=== PATIENT | male | born 1940 | race Caucasian/White ===

== ENCOUNTER → 2019-01-20 11:22 | Outpatient (CLI) | payer MEDICARE, OTHER, SELFPAY ==
[2019-01-20 14:10] LABS: Absolute Lymphocyte Count 1.61 X10^3/ul (0.83-4.51); Absolute Neutrophil Count 2.1 X10^3/uL (2.0-7.7); Eosinophil# 0.09 X10^3/uL; Hematocrit 32.2 % (40-54); Hemoglobin 9.7 g/dl (13.0-16.5); Lymphocyte # 1.61 X10^3/ul (4.0); Lymphocyte % 35.9 % (19-41); Mean Corp Hgb Conc 30.1 g/gl (32-36); Mean Corpuscular Hgb 27.5 pg (27.0-32.0); Mean Corpuscular Volume 91.2 fL (80-94); Mean Platelet Vol. 10.7 fl (6.2-12.0); Monocyte# 0.67 X10^3/uL; Neutrophil % 46.9 % (47-70); POSITIVE COUNT NO; POSITIVE DIFFERENTIAL NO; POSITIVE MORPHOLOGY NO; Platelet Count 211 K/mm3 (150-450); RBC Distribution Width CV 14.1 % (11.6-14.6); RBC Distribution Width SD 45.9 fl (35.1-43.9); Red Blood Count 3.53 M/mm3 (4.6-6.2); White Blood Count 4.5 K/mm3 (4.4-11.0)
[2019-01-20 14:25] LABS: Vitamin B12 441 pg/mL (211-911)
[2019-01-20 14:29] LABS: ALB/GLOB Ratio 0.9 RATIO (0.9-2.4); AST(SGOT) 14 U/L (15-37); Alanine Aminotransfer ALT/SGPT 14 U/L (16-61); Albumin, Serum 3.4 g/dL (3.2-5.0); Alkaline Phosphatase 78 U/L (45-117); Anion Gap 10 (5-15); BUN 17 mg/dL (7-18); BUN/Creat Ratio 13.6 RATIO (10-20); Calcium,Total 8.3 mg/dL (8.5-10.1); Chloride 105 mmol/L (98-107); Cholesterol 104 mg/dL (200); Creatinine, Serum 1.25 mg/dL (0.70-1.30); EST Glomerular Filtration Rate 59 mL/min (>60); Est Glom Filt Rate - Afr Amer 71 mL/min (>60); Globulin 3.7 g/dL (2.2-4.2); Glucose 96 mg/dL (74-106); High Density Lipoprotein 35 mg/dL; Potassium 4.1 mmol/L (3.5-5.1); Protein, Total 7.1 g/dL (6.4-8.2); Sodium Level 143 mmol/L (136-145); T4 Free Direct 0.85 ng/dL (0.76-1.46); Thyroid Stim Hormone (TSH) 1.56 uIU/mL (0.358-3.74); Triglycerides 173 mg/dL; Very Low Density Lipoprotein 35 mg/dL (5-40)
[2019-01-20 14:40] LABS: Amphetamine Urine VISTA NEGATIVE (<1000 ng/mL); Barbiturate Urine VISTA NEGATIVE (< 200 ng/mL); Benzodiazepine Urine VISTA NEGATIVE (< 200 ng/mL); Cocaine Urine VISTA NEGATIVE (< 300 ng/mL); Ecstacy Urine VISTA NEGATIVE (< 500 ng/mL); Methadone Urine VISTA NEGATIVE (< 300 ng/mL); PCP Urine VISTA NEGATIVE (< 25 ng/mL); THC Urine VISTA NEGATIVE (< 50 ng/mL); Vista UDS pH Range 5
[2019-01-21 09:45] LABS: Ferritin 9 ng/mL (26-388); Iron 26 ug/dL (65-175); Iron Binding Capacity,Total 370 ug/dL (250-450)
== END ==
PROVIDERS: Family Provider Family Medicine; PCP Family Medicine; Referring Provider Family Medicine; Visit Provider Family Medicine
DX: D64.9 Anemia, unspecified (principal); I10 Essential (primary) hypertension; E78.5 Hyperlipidemia, unspecified; E04.1 Nontoxic single thyroid nodule; R53.83 Other fatigue; Z51.81 Encounter for therapeutic drug level monitoring
CPT/HCPCS: 36415; 80053; 80061; 80307; 82306; 82607; 82728; 82746; 83540; 83550; 84439; 84443; 85025

== ENCOUNTER → 2019-01-25 11:40 | Outpatient (CLI) | payer MEDICARE, OTHER, SELFPAY ==
--- NOTE | 2019-01-25 11:46 | US_ITS ---
STUDY: THYROID ULTRASOUND REASON FOR EXAM: Male, 78 years old. Thyroid nodules TECHNIQUE: Ultrasound evaluation of the thyroid was performed with real-time and static zamora-scale imaging. COMPARISON: None. FINDINGS: RIGHT LOBE: The right lobe of the thyroid gland measures 5.1 x 1.8 x 1.5 cm. There is a homogeneous echotexture. There are no demonstrated solid, cystic or complex lesions. LEFT LOBE: The left lobe of the thyroid gland measures 3.9 x 1.7 x 1.1 cm. There is a homogeneous echotexture. There are no demonstrated solid, cystic or complex lesions. ISTHMUS: The isthmus measures 3 mm . The regional lymph nodes are normal. US/Thyroid IMPRESSION: Normal ultrasound examination of the thyroid. Electronically Signed: Maciej Knight MD at 23:21 EST , Service support ,
== END ==
PROVIDERS: Family Provider Family Medicine; PCP Family Medicine; Referring Provider Family Medicine; Visit Provider Family Medicine
DX: E04.1 Nontoxic single thyroid nodule (principal)
CPT/HCPCS: 76536

== ENCOUNTER → 2019-02-01 11:53 | Outpatient (CLI) | payer MEDICARE, OTHER, SELFPAY ==
[2019-02-01 15:49] LABS: Amphetamine Urine VISTA NEGATIVE (<1000 ng/mL); Barbiturate Urine VISTA NEGATIVE (< 200 ng/mL); Benzodiazepine Urine VISTA NEGATIVE (< 200 ng/mL); Cocaine Urine VISTA NEGATIVE (< 300 ng/mL); Ecstacy Urine VISTA NEGATIVE (< 500 ng/mL); Methadone Urine VISTA NEGATIVE (< 300 ng/mL); PCP Urine VISTA NEGATIVE (< 25 ng/mL); THC Urine VISTA NEGATIVE (< 50 ng/mL); Vista UDS pH Range 7
[2019-02-01 16:09] LABS: Anion Gap 8 (5-15); BUN 16 mg/dL (7-18); BUN/Creat Ratio 14.3 RATIO (10-20); Calcium,Total 8.6 mg/dL (8.5-10.1); Chloride 104 mmol/L (98-107); Creatinine, Serum 1.12 mg/dL (0.70-1.30); EST Glomerular Filtration Rate 67 mL/min (>60); Est Glom Filt Rate - Afr Amer 81 mL/min (>60); Ferritin 14 ng/mL (26-388); Glucose 98 mg/dL (74-106); Iron 25 ug/dL (65-175); Iron Binding Capacity,Total 365 ug/dL (250-450); PERCENT IRON SATURATION 6.8 % (15.0-55.0); Potassium 4.2 mmol/L (3.5-5.1); Sodium Level 139 mmol/L (136-145)
== END ==
PROVIDERS: Family Provider Family Medicine; PCP Family Medicine; Referring Provider Family Medicine; Visit Provider Family Medicine
DX: D64.9 Anemia, unspecified (principal); R94.4 Abnormal results of kidney function studies
CPT/HCPCS: 36415; 80048; 80307; 82728; 82746; 83540; 83550

== ENCOUNTER → 2019-02-11 14:27 | Outpatient (CLI) | payer MEDICARE, OTHER, SELFPAY ==
[2019-02-01 14:15] VITALS: BMI 26.3
[2019-02-11 15:42] LABS: Absolute Lymphocyte Count 1.31 X10^3/ul (0.83-4.51); Absolute Neutrophil Count 1.2 X10^3/uL (2.0-7.7); Basophil# 0.01 X10^3/uL; Basophil% 0.3 % (0-1); Eosinophils% 5.4 % (0-5); Hematocrit 31.1 % (40-54); Hemoglobin 9.7 g/dl (13.0-16.5); Lymphocyte # 1.31 X10^3/ul (4.0); Lymphocyte % 35.4 % (19-41); Mean Corp Hgb Conc 31.2 g/gl (32-36); Mean Corpuscular Hgb 27.4 pg (27.0-32.0); Mean Corpuscular Volume 87.9 fL (80-94); Mean Platelet Vol. 9.9 fl (6.2-12.0); Monocyte# 0.97 X10^3/uL; Monocyte% 26.2 % (0-10); Neutrophil % 32.4 % (47-70); Platelet Count 210 K/mm3 (150-450); RBC Distribution Width CV 14.6 % (11.6-14.6); RBC Distribution Width SD 47.3 fl (35.1-43.9); Red Blood Count 3.54 M/mm3 (4.6-6.2); White Blood Count 3.7 K/mm3 (4.4-11.0)
[2019-02-11 15:50] LABS: POSITIVE COUNT NO; POSITIVE DIFFERENTIAL NO; POSITIVE MORPHOLOGY NO
[2019-02-11 15:57] LABS: Anion Gap 11 (5-15); BUN 15 mg/dL (7-18); BUN/Creat Ratio 12.8 RATIO (10-20); Calcium,Total 8.6 mg/dL (8.5-10.1); Chloride 103 mmol/L (98-107); Creatinine, Serum 1.17 mg/dL (0.70-1.30); EST Glomerular Filtration Rate 64 mL/min (>60); Est Glom Filt Rate - Afr Amer 77 mL/min (>60); Glucose 109 mg/dL (74-106); Potassium 3.8 mmol/L (3.5-5.1); Sodium Level 142 mmol/L (136-145)
== END ==
PROVIDERS: Family Provider Family Medicine; PCP Family Medicine; Referring Provider Family Medicine; Visit Provider Family Medicine
DX: I10 Essential (primary) hypertension (principal); D64.9 Anemia, unspecified
CPT/HCPCS: 36415; 80048; 85025

== ENCOUNTER 2019-02-22 08:40 | Day surgery (SDC) | payer MEDICARE, OTHER, SELFPAY ==
[2019-02-14 15:18] VITALS: BMI 26.3
--- NOTE | 2019-02-14 16:18 | HP_ITS ---
ntake Vital Signs 02/14/19 Body Mass Index (BMI) 26.3 02/14/19 Height 6 ft 02/14/19 Weight: 188 lb 02/14/19 Body Mass Index (BMI) 25.4 02/14/19 Blood Pressure 134/60 H 02/14/19 Blood Pressure Location Lt brachial 02/14/19 Blood Pressure Position Sitting 02/14/19 Respiratory Rate 18 02/14/19 Pulse Rate 52 L Intake Visit Reasons: Anemia Chief Complaint: Routine f/u Survey Engineer Required: No Is patient in pain?: No Allergies No Known Allergies Allergy (Verified 02/14/19 15:17) Medications Lactobacillus acidophilus capsule 2,000 mmu cells PO BID 01/20/19 [History Confirmed 02/14/19] acetaminophen 500 mg tablet 1,000 mg PO BID PRN tab 01/20/19 [History Confirmed 02/14/19] fluticasone 50 mcg/actuation nasal spray,suspension 1 spray INTRANASAL DAILY PRN 01/20/19 [History Confirmed 02/14/19] loperamide 2 mg capsule 2 mg PO DAILY cap 01/20/19 [History Confirmed 02/14/19] amlodipine 5 mg tablet 5 mg PO DAILY #90 tab 02/01/19 [Rx Confirmed 02/14/19] carvedilol 25 mg tablet 25 mg PO BID #180 tab 02/01/19 [Rx Confirmed 02/14/19] cholecalciferol (vitamin D3) 5,000 unit capsule 5,000 unit PO DAILY 02/01/19 [History Confirmed 02/14/19] ferrous sulfate 325 mg (65 mg iron) tablet 325 mg PO DAILY tab 02/01/19 [History Confirmed 02/14/19] rosuvastatin 5 mg tablet 5 mg PO DAILY #90 tab 02/01/19 [Rx Confirmed 02/14/19] [facility] Medical History Iron deficiency anemia (Acute) Aortic stenosis (Chronic) Bowel obstruction (Acute) Mitral valve annular calcification (Chronic) Atrial fibrillation with rapid ventricular response (Acute) Acute metabolic encephalopathy (Acute) Acute kidney injury (Acute) Nonrheumatic aortic (valve) stenosis (Chronic) Prolonged QT interval (Acute) Left bundle branch block (Chronic) Anemia (Acute) Hyperlipidemia (Chronic) Essential (primary) hypertension (Chronic) Declining functional status (Acute) Cognitive deficits (Chronic) Vitamin D deficiency (Chronic) Surgical History Umbilical hernia, incarcerated (Chronic 12/04/18) S/P partial colectomy (Acute) Family History Father Cancer Sister Cancer Social History Smoking Status: Former smoker quit date: 11/23/1954 pack-years: 5 ROS General General: Yes fatigue; no weight change, appetite, colon cancer, breast cancer or weakness HEENT HEENT: Yes eye injury and eye surgery; no difficulty swallowing, swollen glands or hoarseness Endo Endocrine: No thyroid disease, diabetes mellitus, thyroid cancer, Hair loss, heat intolerance or cold intolerance Skin Skin: No rash or changing moles Breast Breast: No left breast lump, right breast lump, nipple discharge, breast pain, abnormal mammogram, abnormal US or breast enlargement Musc Musculoskeletal: No back problems, arthritis, rheumatoid arthritis, gout or joint pain Cardio Cardiovascular: Yes heart disease, atrial fibrillation and high blood pressure; no murmur, pacemaker, heart attack, heart stent, palpitations, shortness of breat with exertion or chest pain Psych Psychiatric: No depression, anxiety or hearing voices Resp Respiratory: Yes shortness of breath, No sleep apnea, No cough, No COPD, No asthma, No emphysema, No wheezing Gastro Gastrointestinal: No abdominal pain, Yes nausea or vomiting, Yes diarrhea, Yes constipation, No blood in stool, No acid reflux, No hemorrhoids, No ulcers, No gallbladder problem, No black,tarry stools Stanley Hematologic: No blood thinners, No blood disorders, No bleeding, Yes anemia, No blood clots Neuro Neurologic: No system reviewed and no additional complaints, except as docu, No as per HPI, No abnormal walking, No abnormal hearing, No abnormal movements, No abnormal speech, No behavioral changes, No burning sensations, No confusion, No seizure-like activity, No unsteadiness, No dizziness, No localized weakness, No frequent falls, No headache(s), No lack of coordination, No loss of vision, No memory loss, No numbness, No other visual disturbances, No radiating pain, No restless legs, No sensory deficit, No fainting, No tingling, No tremor(s), No weakness, No other Exam Const General: cooperative, frail appearing Nutritional Appearance: average body habitus Orientation: alert [facility] Head: normal to inspection Chest Breast Palpation: No nipple discharge Resp Effort & Inspection: normal respiratory effort Auscultation: clear to auscultation bilaterally Cardio Rhythm: abnormal rhythm Heart Sounds: no murmurs GI Palpation: soft, no hepatosplenomegaly Musc Cervical Spine: other (Kyphosis) Neuro Other: Patient's responses are mostly appropriate. He does rely upon his sister from some history Extrem General: no calf tenderness bilaterally Psych Affect: normal affect Assessment & Plan Problems 1. Iron deficiency anemia, unspecified iron deficiency anemia type D50.9 Plan 86-year-old gentleman who just underwent emergency surgery for incarcerated umbilical hernia with compromised bowel requiring bowel resection. He did have some postoperative encephalopathy but otherwise is making steady progress. He has need for cardiac catheterization and further workup regarding his aortic stenosis however he is referred by Dr. Mack Tillman collection analyst to undergo his upper and lower endoscopy first looking for potential source of blood loss. The patient certainly could have stress gastritis or an ulceration or because he has a personal history of colon polyps there is also to could be a potential source of loss. The patient however clearly is at increased interventional risk. With his sister present I described the technique, benefit, risks and alternatives of a esophagogastroduodenoscopy with possible biopsy and colonoscopy with possible biopsy or polypectomy is indicated. No guarantees of success have been offered. I anticipate preoperative IV antibiotic. I anticipate monitored anesthesia care. The patient has been instructed to avoid hydration and continue with adequate fluid supplementation. I appreciate the opportunity of assisting with his surgical care Hunter Boone M.D., F.A.C.S. CC: Dr. Mal Main and Dr. Mack Tillman Coding Level of Care Code Detailed, Low Diagnoses Iron deficiency anemia, unspecified iron deficiency anemia type D50.9 ??Iron deficiency anemia type: unspecified iron deficiency
--- NOTE | 2019-02-22 | IMM_PTH ---
PATIENT: ELIAS JAQUEZ LOC: EN U#:[id number] AGE/SX: 78/M ROOM: RE02/22/[address]: Dr. Hunter Boone MD : 1940 BED: DIS: 02/22/2019 SPEC #: [id number] RECD: 02/23/19 11:20 STATUS: KHURRAM REYuki #: [id number] CRYSTAL: 02/22/19 00:[address]: Hunter Boone DEPT: IMMUNOHISTOCHEMISTRY RECD BY: Erika Macias ENTERED: 02/23/19 11:20 SP TYPE: IMMUNO OTHR DR: Dr. Mal Main MD Tissues: A - Gastric mucous membrane Procedures: H Pylori (initial) PHYSICIAN & INSTITUTION [place] [address] SPECIMEN INFORMATION: Tissue Source: A - Cardia biopsy Clinical Info: Anemia, history of polyp Specimen Number: [id number] CPT code: 22816 METHODOLOGY: Deparaffinized sections of prefer/formalin-fixed tissue or PAP/DQ stained slides are incubated with monoclonal/polyclonal antibodies/oligonucleotide probes. Localization is made via biotin free immunoperoxidase method. Appropriate controls are performed and reacted as expected. Results on target cell population are indicated in the following table: RESULTS: ANTIBODY / CLONE RESULT Block A H Pylori (polyclonal) negative These tests were developed and their performance characteristics determined by [facility]. They may not have been cleared or approved by the U.S. Food and Drug Administration. The FDA has determined that such clearance or approval is not necessary. INTERPRETATION: A. Cardia biopsy: Negative for Helicobacter pylori organisms. SJ:daquan 02/24/19
[2019-02-22 09:02] VITALS: BP 130/67; PULSE 52; RESP 16; TEMP 36.9; O2SAT 100; BMI 25.3
--- NOTE | 2019-02-22 09:45 | COLBX_PTH ---
PATIENT: ELIAS JAQUEZ LOC: EN U#:[id number] AGE/SX: 78/M ROOM: RE02/22/[address]: Dr. Hunter Boone MD : 1940 BED: DIS: 02/22/2019 SPEC #: [id number] RECD: 02/22/19 11:04 STATUS: KHURRAM MARIAMA #: [id number] CRYSTAL: 02/22/19 09:[address]: Hunter Boone DEPT: SURGICAL PATHOLOGY RECD BY: Nish Cruz ENTERED: 02/22/19 11:37 SP TYPE: COLON BX OTHR DR: Dr. Mal Main MD Tissues: A - Gastric mucous membrane B - Esophageal mucous membrane C - Transverse colon Procedures: Special Stain Group II Surgery Specimen Level IV Alcian Blue/PAS (control) HEADER OPERATION: Colonoscopy, EGD ([facility] [place]) PRE-OP DIAGNOSIS: Anemia, history of polyp TISSUE SUBMITTED: A - Cardia biopsy, B - Distal esophageal biopsies, C - Mid transverse polyp biopsies MICROSCOPIC DIAGNOSIS A. Cardia, biopsy: Fragments of gastric mucosa with acute and chronic inflammation, congestion and hemorrhage. See comment. B. Distal esophageal biopsy: Fragments of gastroesophageal mucosa with intestinal metaplasia (goblet cell metaplasia), consistent with Mackey's esophagus. Mild chronic inflammation. Negative for dysplasia. See comment. C. Mid transverse colon polyps, biopsy: Fragments of tubular adenoma. SJ:rg 02/23/19 COMMENT A. The results of immunohistochemistry for Helicobacter pylori will be reported separately ([id number]). B. Alcian blue/PAS stain with matched control is used in the evaluation of the specimen. MICROSCOPIC DESCRIPTION Slides are reviewed. GROSS DESCRIPTION A - Received in fixative is one container labeled with the patient's name and designated cardia biopsy. The specimen consists of multiple irregular fragments of light singletary soft tissue that in aggregate measure 0.6 x 0.2 x 0.1 cm. The specimen is totally submitted in one cassette. B - Received in fixative is one container labeled with the patient's name and designated distal esophageal biopsy. The specimen consists of multiple irregular fragments of light singletary soft tissue that in aggregate measure 0.5 x 0.5 x 0.1 cm. The specimen is totally submitted in one cassette. C - Received in fixative is one container labeled with the patient's name and designated mid transverse polyps. The specimen consists of multiple irregular fragments of light singletary soft tissue that in aggregate measure 1.8 x 0.5 x 0.1 cm. The specimen is totally submitted in one cassette. / SJ:rg 02/22/19 TC:5 CPT: 36429 x3, 12705
[2019-02-22 10:40] VITALS: BP 130/67; BP 174/82; PULSE 60; RESP 16; TEMP 36.6; O2SAT 100
--- NOTE | 2019-02-22 10:44 | OP.ENDO_ITS ---
02/22/2019 Valdez Howell [address] [place] [address] Re : Upper GI endoscopy procedure for Lupillo Shah Dear Dr. Howell This procedure was performed on Friday, February 22, 2019. My impressions and recommendations are as follows: Impressions : - LA Grade A reflux esophagitis. No current bleeding. Biopsied. - Small hiatal hernia. - Inflamed mucosa in the cardia. Appears chronic/old. No current blood loss. Biopsied. - Normal examined duodenum. Recommendations : - Discharge patient to home. - Resume previous diet. - Continue present medications. - Use Pepcid (famotidine) 20 mg PO daily. - Telephone my office for pathology results in 1 week. My findings are described in the full procedure note, which is enclosed. If I can be of further assistance, please feel free to contact me at Doctor phone number(s): Work: . Sincerely, Hunter Boone MD 02/22/2019 10:44:18 AM This report has been signed electronically.
[2019-02-22 10:45] VITALS: BP 130/67; BP 174/77; PULSE 61; RESP 16; O2SAT 100
[2019-02-22 10:50] VITALS: BP 130/67; BP 164/82; PULSE 60; RESP 16; O2SAT 96
--- NOTE | 2019-02-22 10:52 | OP.ENDO_ITS ---
02/22/2019 Mack Tillman MD [address] [place] [address] Re : Colonoscopy procedure for Lupillo Shah Dear Dr. Tillman This procedure was performed on Friday, February 22, 2019. My impressions and recommendations are as follows: Impressions : - Non-thrombosed internal hemorrhoids and internal hemorrhoids that prolapse with straining, but spontaneously regress to the resting position (Grade II) found on digital rectal exam. - One 6 mm polyp in the mid transverse colon, removed with a cold biopsy forceps. Incomplete resection. Resected tissue retrieved. - One 12 mm polyp in the mid transverse colon. Multiple biopsies. Attempt at removal with cold forcep but this was released due to thickness of tissue. Hemostatic clip placed. - Diverticulosis in the entire examined colon. Recommendations : - Discharge patient to home. - Resume previous diet. - Continue present medications. - Repeat colonoscopy in 5 years for surveillance. - Telephone my office for pathology results in 1 week. No current colonic bleeding. My findings are described in the full procedure note, which is enclosed. If I can be of further assistance, please feel free to contact me at Doctor phone number(s): Work: . Sincerely, Hunter Boone MD 02/22/2019 10:51:42 AM This report has been signed electronically.
[2019-02-22 11:00] VITALS: BP 130/67; BP 161/76; PULSE 54; RESP 16; TEMP 36.9; O2SAT 97
[2019-02-22 11:51] VITALS: BP 130/67
== END 2019-02-22 11:52 | disposition home or self-care (01) ==
LOC: EN 08:41 → AC 08:42
PROVIDERS: Family Provider Family Medicine; PCP Family Medicine; Referring Provider Family Medicine; Visit Provider Surgery
PROC: 0DJD8ZZ Inspection of Lower Intestinal Tract, Via Natural or Artificial Opening Endoscopic (ICD-10-PCS; CPT 45378; principal; 2019-02-22 09:40)
DX: D50.9 Iron deficiency anemia, unspecified (principal); D12.3 Benign neoplasm of transverse colon; K57.30 Diverticulosis of large intestine without perforation or abscess without bleeding; K64.1 Second degree hemorrhoids; K44.9 Diaphragmatic hernia without obstruction or gangrene; K29.70 Gastritis, unspecified, without bleeding; I48.91 Unspecified atrial fibrillation; I35.0 Nonrheumatic aortic (valve) stenosis; K21.0 Gastro-esophageal reflux disease with esophagitis; I10 Essential (primary) hypertension; E78.00 Pure hypercholesterolemia, unspecified; E55.9 Vitamin D deficiency, unspecified; F32.9 Major depressive disorder, single episode, unspecified; Z86.73 Personal history of transient ischemic attack (TIA), and cerebral infarction without residual deficits; Z87.891 Personal history of nicotine dependence; Z90.49 Acquired absence of other specified parts of digestive tract
CPT/HCPCS: 43239; 45380; 88305; 88313; 88342; J7120; J0290

== ENCOUNTER 2019-03-02 08:47 | Day surgery (SDC) | payer MEDICARE, OTHER, SELFPAY ==
[2019-02-01 14:15] VITALS: BMI 26.3
--- NOTE | 2019-02-15 12:00 | RAD_ITS ---
STUDY: X-RAY CHEST REASON FOR EXAM: Male, 78 years old. Pre-op. TECHNIQUE: PA and lateral views of the chest. COMPARISON: None. FINDINGS: There is elevation of the left hemidiaphragm. There is no focal consolidation. Normal size heart. Normal mediastinum and rafael. Normal visualized pulmonary arteries. Normal visualized aortic arch and descending thoracic aorta. There are diffuse degenerative changes of the visualized thoracic spine. Normal visualized ribs, clavicles, and shoulders. There is no demonstrated abnormality of the visualized soft tissue structures of the upper abdomen. RAD/Chest PA and Lateral IMPRESSION: No acute cardiopulmonary process. Electronically Signed: Rehana Guzman MD at 11:02 EDT Tel , Service support ,
[2019-02-15 12:17] LABS: Absolute Lymphocyte Count 1.49 X10^3/ul (0.83-4.51); Absolute Neutrophil Count 1.7 X10^3/uL (2.0-7.7); Basophil# 0.01 X10^3/uL; Basophil% 0.2 % (0-1); Eosinophil# 0.33 X10^3/uL; Eosinophils% 7.2 % (0-5); Hematocrit 32.4 % (40-54); Hemoglobin 10.2 g/dl (13.0-16.5); Lymphocyte # 1.49 X10^3/ul (4.0); Lymphocyte % 32.7 % (19-41); Mean Corp Hgb Conc 31.5 g/gl (32-36); Mean Corpuscular Hgb 27.5 pg (27.0-32.0); Mean Corpuscular Volume 87.3 fL (80-94); Mean Platelet Vol. 9.6 fl (6.2-12.0); Monocyte# 1.01 X10^3/uL; Monocyte% 22.1 % (0-10); Neutrophil # 1.72 X10^3/uL (2.7-7.7); Neutrophil % 37.8 % (47-70); Platelet Count 207 K/mm3 (150-450); RBC Distribution Width CV 14.2 % (11.6-14.6); RBC Distribution Width SD 45.8 fl (35.1-43.9); Red Blood Count 3.71 M/mm3 (4.6-6.2); White Blood Count 4.6 K/mm3 (4.4-11.0)
[2019-02-15 12:18] LABS: POSITIVE COUNT NO; POSITIVE DIFFERENTIAL NO; POSITIVE MORPHOLOGY NO
[2019-03-01 09:29] VITALS: BMI 26.3
--- NOTE | 2019-03-02 08:49 | ECHOTEE_ITS ---
Reason For Study: VALVE REPLACEMENT EVAL Medication OLIMPIA probe passed with minimal difficulty. No complications were noted. [id number] gargled and swallowed. Cetacaine Topical Pitts given X2 orally. Versed 2 mg given slow IVP. Fentanyl 25 mcg given slow IVP. Performed a rapid injection of agitated mix of 9 cc saline and 1cc air to assess for atrial septal defect. Left Ventricle Normal size and thickness. The estimated ejection fraction is 65 %. No regional wall motion abnormalities noted. Right Ventricle Normal size and thickness. The right ventricular wall motion is normal. Atria Normal atrial septum. No doppler evidence for ASD. Bubble contrast study negative for right to left interatrial shunt. Normal left atrium. No thrombus is detected in the left atrial appendage. Normal right atrium. Mitral Valve The mitral valve is structurally normal. No prolapse or stenosis seen. Mild (1+) mitral valve insufficiency. Tricuspid Valve Normal tricuspid valve. Mild (1+) tricuspid valve insufficiency. Unable to estimate RV systolic pressure/pulmonary artery pressure due to technically difficult study. Aortic Valve Trisinus/trileaflet aortic valve. Severe focal aortic valve thickening. Moderate focal aortic valve calcification. Severe restriction of the aortic valve. Moderate aortic stenosis. Peak aortic valve gradient 52 mmHg. Mean aortic valve gradient 28 mmHg. Pulmonic Valve Normal pulmonic valve. Vessels Normal aortic root. Normal arch. Pulmonary venous flow normal. MMode/2D Measurements & Calculations Aortic Valve Planimetry: 0.50 cm2 Doppler Measurements & Calculations Ao V2 max: 344.6 cm/sec Ao V2 mean: 251.5 cm/sec Ao V2 VTI: 90.5 cm Interpretation Summary The estimated ejection fraction is 65 %. Bubble contrast study negative for right to left interatrial shunt. Mild (1+) mitral valve insufficiency. Mild (1+) tricuspid valve insufficiency. Unable to estimate RV systolic pressure/pulmonary artery pressure due to technically difficult study. Severe restriction of the aortic valve. Moderate to severe aortic stenosis. Peak aortic valve gradient 52 mmHg. Mean aortic valve gradient 28 mmHg. Aortic gradients may be underestimated. No thrombus is detected in the left atrial appendage. Ordering Physician: Mack Tillman Referring Physician: GEORGIE DAVILA Performed By: Abbey Ramos RDCS
[2019-03-02 14:11] LABS: Blood Gas Specimen Type VEN; VBG BASE EXCESS 1 mmol/L (-1.0-3.5); VBG Bicarbonate 26 mmol/L (22-26); VBG Oxygen Content 27 mmol/L (23-33); VBG PO2 35 mmHg (25-40); VBG SO2 69 % (50-70); VBG pCO2 38.7 mmHg (41-51); VBG pH 7.43 (7.32-7.42)
[2019-03-02 14:11] LABS: Base Excess 0 mmol/L (-2 to +2); Bicarbonate 24.2 mmol/L (22-26); Blood Gas Specimen Type ART; PO2 70 mmHG (75-100); SO2 94 % (95-99); Total Carbon Dioxide 25 mmol/L; pCO2 36.1 mmHg (35-45); pH 7.44 (7.35-7.45)
[2019-03-02 14:11] LABS: Blood Gas Specimen Type VEN; VBG BASE EXCESS 1 mmol/L (-1.0-3.5); VBG Bicarbonate 26 mmol/L (22-26); VBG Oxygen Content 27 mmol/L (23-33); VBG PO2 33 mmHg (25-40); VBG SO2 65 % (50-70); VBG pCO2 39.6 mmHg (41-51); VBG pH 7.42 (7.32-7.42)
--- NOTE | 2019-03-02 14:21 | CL.D_ITS ---
Patient Name: ELIAS JAQUEZ Study Date: 03/02/2019 Performing: Mack Tillman MD Ht: 70.86 inches 180 cm : 1940 Wt: 189.6 lbs 86 kg Age: 78 Gender: male BSA: 2.06 PROCEDURE(S) PERFORMED QS10-HPT/LHC/COR/LV CLINICAL PROFILE AND INDICATIONS Indications: Valvular Disease Heart Failure: None Stress/Imaging Stress/Image Study Performed: No Angina Classification Anginal Classification w/in 2 Weeks: No symptoms CAD Presentations: Other: Dyspnea on exertion Comorbidities/Risk Factors: Hypertension Dyslipidemia CONCLUSIONS Non obstructive coronary arteries Normal Left Ventricular systolic function LVEF: by LV gram 75 % Elevated Left Ventricular End Diastolic Pressure The patient has pulmonary hypertension which is mild. RECOMMENDATIONS Refer to [facility] for TAVR vs open resection. Management as per referring Occup Therapist Manual sheath removal. DESCRIPTION OF PROCEDURE The patient arrived to the procedure lab. The risks and benefits of the procedure as well as a full d escription of our services here and current unavailability of surgical backup were fully explained to the patient and/or their significant other prior to the catheterization. The Timeout was completed, verifying the correct patient and procedure. The patient's procedural site was prepped and draped in the usual fashion. Local anesthetic was given subcutaneously to right groin region with Lidocaine 2%. Using a modified Seldinger technique, arterial access was obtained via the right femoral artery, a 4 Fr sheath was inserted Venous access was obtained via the right femoral vein, a 7Fr sheath was insert ed. A 7Fr thermal dilution catheter was inserted and right heart pressures were recorded, it was then advanced to PA position for cardiac outputs. O2 saturations were then obtained. Thermal dilution car diac outputs were then recorded. Left Ventriculography was performed in [place] projection using a 4 Fr. Pigtail catheter. Simultaneous pressures were then recorded. LV to AO pullback pressure s were then recorded. The Thermal dilution catheter was then removed. Left Coronary Artery selective angiography was performed in multiple views using a 4 Fr. JL5 catheter. Right Coronary Artery selecti ve angiography was then performed in multiple views using a 4 Fr. 3DRC catheter.The arterial sheath w as pulled and manual compression applied until hemostasis is achieved. CORONARY ANGIOGRAPHY DOMINANCE: Left Dominant LEFT HEART ASSESSMENT Left Ventricular Ejection Fraction: by LV Gram 75 % Normal LV wall motion Normal Left Ventricular systolic function RIGHT HEART ASSESSMENT Thermal CO: 6.32 Thermal CI: 3.07 Cam CO: 7.31 Cam CI: 3.55 PW: 13 PA: 36/11 21 RV: 55/-1 7 RA: 03/25 1 PVR: 101 SVR: 1152 Aortic Valve Area: 1.11 Aortic Valve Index: 0.54 Aortic Valve Mean Gradient: 40.4 Mitral Valve Area: 1.24 Mitral Valve index: 0.6 Mitral Valve Mean Gradient: 14.2 Right Heart pressures - elevated LEFT MAIN: Angiographically normal LEFT ANTERIOR DECENDING ARTERY: Mild luminal irregularities less than 30% CIRCUMFLEX ARTERY: Mild luminal irregularities less than 30% RIGHT CORONARY ARTERY: Mild luminal irregularities less than 30% VALVE FINDINGS: Aortic Valve Stenosis - severe COMPLICATIONS No Complications PROCEDURE MEDICATIONS SUMMARY OF HEMODYNAMIC DATA Time AIR REST ECG 09:20:06 RA 03/25 (1) SV 13:48:45 RV 55/-1, 7 13:49:10 PA 36/11 (21) PA 13:50:32 PW (13) PV 13:53:04 PW (17) 13:53:13 LV 212/-11, 17 13:57:14 LV 213/-9, 16 13:57:20 LV 211/-14, 18 13:57:48 PW (18) 13:57:48 LV 205/-13, 19 13:57:54 PW (17) 13:57:54 LV 193/-9, 11 13:58:08 RV 46/-1, 6 13:58:08 LV 206/-13, 22 13:58:15 RV 45/-1, 8 13:58:15 LV 205/-14, 25 13:59:24 LVp 207/-16, 20 13:59:29 AOp 158/58 (92) 13:59:34 AO 158/57 (92) SA 13:59:39 RM AIR REST 14:08:46 Valve Area (c P-P/ms Time AIR REST Mitral 1.24 14.2 mn/527 ms 13:57:48 Mitral 1.32 13.4 mn/570 ms 13:57:54 Other 0.00 13:58:08 Aortic 1.11 40.4 mn/360 ms49.0 pk/360 ms 13:59:29 Type SV CO (l/m) CI (l/m/ HR Time AIR REST Thermal 134.50 6.32 3.07 47 09:20:06 Cam 155.50 7.31 3.55 47 09:20:06 Label % O2 Pres/Loc Time AIR REST PA 67 PA 14:02:35 AO 94 PV 14:03:40 Signed By Mack Tillman MD On 03/02/2019 2:20:53 PM Mack Tillman MD
[2019-03-02 15:19] VITALS: BP 153/76; PULSE 53; RESP 15; TEMP 36.6; O2SAT 94
[2019-03-02 15:55] VITALS: BP 156/76; PULSE 62; RESP 17; O2SAT 92
[2019-03-02 16:55] VITALS: BP 133/50; PULSE 47; RESP 15; TEMP 36.6; O2SAT 97
[2019-03-02 17:50] VITALS: BP 153/82; PULSE 70; RESP 16; O2SAT 94
[2019-03-02 18:35] VITALS: BP 149/71; PULSE 60; RESP 15; TEMP 36.6; O2SAT 95
== END 2019-03-02 19:01 | disposition home or self-care (01) ==
LOC: PCU 03-03 08:56 → CVS 03-03 08:56
PROVIDERS: Family Provider Family Medicine; PCP Family Medicine; Referring Provider Internal Medicine Cardiovascular Disease; Visit Provider Internal Medicine Cardiovascular Disease
DX: I35.0 Nonrheumatic aortic (valve) stenosis (principal); I27.20 Pulmonary hypertension, unspecified; I48.91 Unspecified atrial fibrillation; I44.7 Left bundle-branch block, unspecified; I10 Essential (primary) hypertension; E78.5 Hyperlipidemia, unspecified; D64.9 Anemia, unspecified; E55.9 Vitamin D deficiency, unspecified; Z79.899 Other long term (current) drug therapy; Z87.891 Personal history of nicotine dependence
CPT/HCPCS: 36415; 71046; 82803; 85025; 93312; 93320; 93325; 93460; J7040; A4216; C1751; C1769; C1894

== ENCOUNTER 2019-07-13 17:30 | Inpatient (IN) | payer MEDICARE, OTHER, SELFPAY ==
[2019-07-13 17:48] VITALS: BMI 25.3
[2019-07-13 18:02] VITALS: BP 143/68; PULSE 85; RESP 18; TEMP 36.8; O2SAT 94; BMI 28.8; BMI 28.9
[2019-07-13 20:32] VITALS: O2SAT 97
[2019-07-13] MEDS: Acetaminophen 325 MG Tablet PO (21:22)
[2019-07-13 21:23] VITALS: PULSE 121
[2019-07-13] MEDS: Atorvastatin Calcium 40 MG Tablet PO (21:23)
[2019-07-13] MEDS: Metoprolol Tartrate 50 MG Tablet 75 MG PO (21:23)
--- NOTE | 2019-07-13 22:34 | HP.PCM_ITS ---
Problem List (1) Debility Status: Acute (2) Coronary artery disease Status: Chronic (3) Hypertension Status: Chronic (4) Hematuria Status: Acute (5) Aortic stenosis Status: Chronic Comment: Severe per echo 12/06/2018 @ [facility] (6) Atrial fibrillation with rapid ventricular response Status: Acute (7) Acute metabolic encephalopathy Status: Acute (8) Anemia Status: Chronic Comment: Hgb 9.7 on 01/20/19, ord by Dr. Howell (PCP) (9) Hyperlipidemia Status: Chronic (10) BPH (benign prostatic hyperplasia) Status: Chronic (11) Allergic rhinitis Status: Chronic (12) Vitamin D deficiency Status: Chronic History of Present Illness Date of Admission: 07/13/19 Chief Complaint: Here for rehabilitation, strengthening, prior to discharge home. The patient is a 79 year old Male with below past medical history here with following admitted from [facility]. 07/04/2019 Dr. Navarro performed CABG x 2. Complicated by difficulty with airway after surgery. Developed gross hematuria, Urology consulted, bladder irrigation resolved hematuria. Atrial fibrillation with rapid ventricular response treated with amiodarone, Metoprolol. 07/06/2019 Wires, chest tube discontinued. 07/07/2019 Transfused 1 unit PRBC. 07/07/2019 CT head negative, patient was confused, but now alert and oriented x 3. He has anxiety which can worsen shortness of breath, dizziness. 07/13/2019 Admit to TCU with debility, here for rehabilitation, strengthening, prior to discharge home alone. Past Medical History Past Medical History (Chronic Problems): Chronic Problems (Last Updated 03/02/19 @ 14:34 by Geno Chapa) Coronary artery disease (Chronic) Hypertension (Chronic) BPH (benign prostatic hyperplasia) (Chronic) Allergic rhinitis (Chronic) Vitamin D deficiency (Chronic) History of right and left heart catheterization (Chronic 03/02/19) Aortic Valve Area: 1.11 Aortic Valve Index: 0.54 Aortic Valve Mean Gradient: 40.4; Mitral Valve Area: 1.24 Mitral Valve index: 0.6 Mitral Valve Mean Gradient: 14.2; Right Heart pressures - elevated; LEFT MAIN: Angiographically normal; LEFT ANTERIOR DECENDING ARTERY: Mild luminal irregularities less than 30%; CIRCUMFLEX ARTERY: Mild luminal irregularities less than 30%; RIGHT CORONARY ARTERY: Mild luminal irregularities less than 30% VALVE FINDINGS: Aortic Valve Stenosis - severe per R&LHC 03/02/19 per DJN @ [facility] Aortic stenosis (Chronic) Severe per echo 12/06/2018 @ [facility] Mitral valve annular calcification (Chronic) Mild per echo 12/06/18 done @ [facility] by Dr. José Miguel Gutierrez. No regurgitation. Nonrheumatic aortic (valve) stenosis (Chronic) Per echo 12/06/[address] José Miguel Gutierrez at [facility]: Moderate to severely calcified annulus, trileaflet, moderately calcified leaflets. Severe stenosis,no regurgitation. Mean gradient 44mmhg, Valve area 0.6 cm2. Incidentally, EF 68 % per echo. Left bundle branch block (Chronic) Anemia (Chronic) Hgb 9.7 on 01/20/19, ord by Dr. Howell (PCP) Hyperlipidemia (Chronic) Essential (primary) hypertension (Chronic) Umbilical hernia, incarcerated (Chronic 12/04/18) [facility] Medical History: Medical History (Last Reviewed 02/14/19 @ 15:15 by Daria Meza) Iron deficiency anemia (Acute) D50.9 Aortic stenosis (Chronic) I35.0 Severe per echo 12/06/2018 @ [facility] Bowel obstruction (Acute) K56.609 Repaired at [facility] 12/04/18 Mitral valve annular calcification (Chronic) I05.9 Mild per echo 12/06/18 done @ [facility] by Dr. José Miguel Gutierrez. No regurgitation. Atrial fibrillation with rapid ventricular response (Acute) I48.91 Acute metabolic encephalopathy (Acute) G93.41 Acute kidney injury (Acute) N17.9 Nonrheumatic aortic (valve) stenosis (Chronic) I35.0 Per echo 12/06/[address] José Miguel Gutierrez at [facility]: Moderate to severely calcified annulus, trileaflet, moderately calcified leaflets. Severe stenosis,no regurgitation. Mean gradient 44mmhg, Valve area 0.6 cm2. Incidentally, EF 68 % per echo. Prolonged QT interval (Acute) R94.31 Left bundle branch block (Chronic) I44.7 Anemia (Chronic) D64.9 Hgb 9.7 on 01/20/19, ord by Dr. Howell (PCP) Hyperlipidemia (Chronic) E78.5 Essential (primary) hypertension (Chronic) I10 Declining functional status R53.81 Cognitive deficits R41.89 Vitamin D deficiency E55.9 Allergies No Known Allergies Allergy (Verified 02/22/19 09:01) Home Medications: Ambulatory Orders Medication Instructions Recorded cholecalciferol (vitamin D3) 5,000 5,000 unit PO DAILY 02/01/19 unit capsule Polyethylene Glycol 3350 [Miralax] 17 gm PO DAILY PRN 02/18/19 Ferrous Sulfate 325 mg PO DAILY 03/01/19 Fluticasone 0.05% [Flonase Nasal 1 spray NASAL DAILY PRN 03/01/19 [place]] Acetaminophen [Tylenol] 325 mg PO Q4H PRN PRN 07/13/19 Albuterol Aerosols [Ventolin 3 ml INHALATION Q4H PRN PRN 07/13/19 Aerosols] Amiodarone HCl [Pacerone] 200 mg PO BID 07/13/19 Ascorbic Acid [Vitamin C] 500 mg PO DAILY 07/13/19 Aspirin [Aspirin, Baby] 162 mg PO DAILY 07/13/19 Atorvastatin Calcium [Lipitor] 40 mg PO QHS 07/13/19 Bisacodyl [Dulcolax] 10 mg RECTAL DAILY PRN PRN 07/13/19 Folic Acid 1 mg PO DAILY 07/13/19 Furosemide [Lasix] 40 mg PO DAILY 07/13/19 Lactobacillus Acidophilus 1 cap PO BID 07/13/19 [Acidophilus Lactobacilli] Metoprolol Tartrate 75 mg PO Q8H 07/13/19 Potassium Chloride [Klor-Con M20] 20 meq PO DAILY 07/13/19 Sennosides/Docusate Sodium 1 tab PO DAILY PRN PRN 07/13/19 [Senna-S Tablet] Tamsulosin HCl [Flomax] 0.4 mg PO DAILY 07/13/19 Surgical History: Surgical History (Last Updated 03/02/19 @ 14:34 by Geno Chapa) History of right and left heart catheterization (Chronic) Onset Date: 03/02/19 Z98.890 Aortic Valve Area: 1.11 Aortic Valve Index: 0.54 Aortic Valve Mean Gradient: 40.4; Mitral Valve Area: 1.24 Mitral Valve index: 0.6 Mitral Valve Mean Gradient: 14.2; Right Heart pressures - elevated; LEFT MAIN: Angiographically normal; LEFT ANTERIOR DECENDING ARTERY: Mild luminal irregularities less than 30%; CIRCUMFLEX ARTERY: Mild luminal irregularities less than 30%; RIGHT CORONARY ARTERY: Mild luminal irregularities less than 30% VALVE FINDINGS: Aortic Valve Stenosis - severe per R&LHC 03/02/19 per DJN @ [facility] Umbilical hernia, incarcerated (Chronic) Onset Date: 12/04/18 K42.0 [facility] S/P partial colectomy Z90.49 Surgical History: herniorrhaphy - Umbilical hernia repair. Psychiatric History: No pertinent psych hx Lives: With Family - Lives with sister. Smoking Status: Former smoker Tobacco Use: Non-smoker Alcohol: Occasional Drugs: None - *Family History Maternal Family History: Family History (Last Reviewed 02/14/19 @ 15:16 by Daria Meza) Father Cancer Sister Cancer History Items: No pertinent history Paternal Family History: Family History (Last Reviewed 02/14/19 @ 15:16 by Daria Meza) Father Cancer Sister Cancer History Items: No pertinent history Review of Systems Constitutional: Denies: Chills, Fever, Weight Change HEENT: Denies: Head Aches, Sinus Congestion, Sinus Drainage Cardiovascular: Denies: Chest Pain, Palpitations Respiratory: Reports: Cough. Denies: Shortness of breath at rest, Sputum production Gastrointestinal: Denies: Abdominal Pain, Nausea, Vomiting Genitourinary: Denies: Dysuria Musculoskeletal: Denies: Joint Pain, Joint Tenderness Skin: Denies: Rash, Wounds Neurological: Denies: Numbness, Tingling, Focal weakness Psychiatric: Denies: Anxiety, Depression, Homicidal Ideations, Suicidal Ideations Hematologic/ Lymphatic: Denies: Easy Bruising, Easy Bleeding VTE Information - Inpt Only VTE Present on Admission: No VTE Mechan Device Prophylaxis: Knee High ALYSSA Hose VTE Pharm Prophylaxis ordered?: Yes Patient Problems: Active and Suspected Problems (Last Reviewed 02/14/19 @ 15:15 by Daria Meza) Debility (Acute) Hematuria (Acute) - Physical Exam General: Alert, Oriented x3, Cooperative HEENT: Atraumatic, PERRLA, EOMI, Normocephalic Neck: Supple, No JVD, Negative Carotid Bruits Lungs: Clear to auscultation, Normal air movement Cardiovascular: Regular rate, No murmurs Abdomen: Bowel Sounds Present, Soft, Non Tender Extremities: No edema, Capillary Refill Less than 3 Seconds Skin: No rashes, No breakdown Musculoskeletal: No Tenderness to Palpation of Joints or Extremities Neurological: Cranial nerves II-XII grossly intact Psych/Mental Status: Normal Affect, Appropriate Vital Signs Temp Pulse Resp BP Pulse Ox 98.2 F 121 H 18 143/68 H 97 07/13/19 18:02 07/13/19 21:23 07/13/19 18:02 07/13/19 18:02 07/13/19 20:32 Oxygen Delivery Method Room Air Weight: 96.5 kg Body Mass Index (BMI) 28.8 Intake and Output for Last 24 Hours 07/11/19 07/12/19 07/13/19 23:59 23:59 23:59 Intake Total 120 / 120 Balance 120 / 120 Assessment/Plan All Active Problems (Last Reviewed 02/14/19 @ 15:15 by Daria Meza) Debility (Acute) Hematuria (Acute) Iron deficiency anemia (Acute) Bowel obstruction (Acute) Atrial fibrillation with rapid ventricular response (Acute) Acute metabolic encephalopathy (Acute) Acute kidney injury (Acute) Prolonged QT interval (Acute) 79 year old male with below past medical history hospitalized for CABG x 2 07/04/[address] Jackson, post-operative course complicated by acute respiratory failure, hematuria, atrial fibrillation with rapid ventricular response, acute delirium, admitted to TCU with debility, here for rehabilitation, strengthening, prior to discharge home alone. * Debility - PT/OT. * Pain - Tylenol 1000MG Q6H PRN mild pain, Tramadol 50MG Q6H PRN moderate pain, Oxycodone 2.5MG Q4H PRN severe pain. * Bowel - Miralax 17GM daily, Senna/colace 2 tablets BID, Dulcolax 10MG [place] daily PRN. * Pneumonia vaccination - Administer Prevnar 13 and/or Pneumovax 23 as necessary. * DVT prophylaxis - Lovenox 40MG SC daily. * Shortness of breath - Ventolin 2.5MG Q4H PRN. * Atrial fibrillation - Metoprolol 75MG Q8H, Amiodarone 200MG BID, no oral anticoagulation due to post CABG atrial fibrillation, risk of thromboembolic event low, anticoagulation not recommended. * Vitamin C deficiency - Vitamin C 500MG daily. * Coronary artery disease s/p CABG x 2 - Metoprolol 75MG Q8H, Aspirin 162MG daily. * Hyperlipidemia - Atorvastatin 40MG QHS. * Vitamin D deficiency - D3 5000IU daily. * Iron deficiency anemia - Ferrous Sulfate 325MG daily. * Allergic Rhinitis - Flonase 1 spray daily PRN. * Folate deficiency - Folic Acid 1MG daily. * Edema - Lasix 40MG daily thru 07/18/2019. * Hypokalemia KCL 20EQ daily thru 07/18/2019. * GI prophylaxis - Lactobacillus 1 tablet BID. * Skin irritation - Calmoseptine BID. * Tinea Corporis - Nystatin powder BID. * BPH - Tamsulosin 0.4MG daily. * Post intubation tracheitis - Cefdinir 300MG BID x 7 days.
[2019-07-14] MEDS: traMADol 50 MG Tablet PO ×2 (03:38→11:10)
[2019-07-14 04:58] VITALS: BP 142/57; PULSE 91
[2019-07-14] MEDS: Metoprolol Tartrate 50 MG Tablet 75 MG PO ×3 (04:58→20:34)
[2019-07-14] MEDS: Tamsulosin HCl 0.4 MG Capsule PO (04:58)
[2019-07-14] MEDS: Furosemide 40 MG Tablet PO (04:58)
[2019-07-14] MEDS: Amiodarone 200 MG Tablet PO ×2 (04:58→17:12)
[2019-07-14] MEDS: Ascorbic Acid 500 MG Tablet PO (04:59)
[2019-07-14] MEDS: Menthol/Lanolin/Calamine/Znox 113 GM Tube 1 APPLIC TOPICAL ×2 (05:00→20:32)
[2019-07-14] MEDS: Nystatin Powder 15gm Bottle 1 APPLIC TOPICAL ×2 (05:00→20:32)
[2019-07-14 05:49] LABS: Absolute Lymphocyte Count 1.33 X10^3/uL (0.83-4.51); Absolute Neutrophil Count 5.7 X10^3/uL (2.0-7.7); Basophil# 0.01 X10^3/uL; Basophil% 0.1 % (0-1); Eosinophil# 0.13 X10^3/uL; Eosinophils% 1.6 % (0-5); Hematocrit 27.2 % (40-54); Hemoglobin 8.6 g/dL (13.0-16.5); Lymphocyte # 1.33 X10^3/ul (4.0); Lymphocyte % 16.1 % (19-41); Mean Corp Hgb Conc 31.6 g/dL (32-36); Mean Corpuscular Hgb 29.9 pg (27.0-32.0); Mean Corpuscular Volume 94.4 fL (80-94); Mean Platelet Vol. 9.5 fl (6.2-12.0); Monocyte# 1.04 X10^3/uL; Monocyte% 12.6 % (0-10); NRBC Flagged by Analyzer 0 % (0-5); Neutrophil # 5.67 X10^3/uL (2.7-7.7); Neutrophil % 68.8 % (47-70); Platelet Count 335 K/mm3 (150-450); RBC Distribution Width CV 14.2 % (11.6-14.6); RBC Distribution Width SD 47.4 fl (35.1-43.9); Red Blood Count 2.88 M/mm3 (4.6-6.2); White Blood Count 8.3 K/mm3 (4.4-11.0)
[2019-07-14 06:16] LABS: Anion Gap 6 (5-15); BUN 19 mg/dL (7-18); BUN/Creat Ratio 14.7 RATIO (10-20); Calcium,Total 8.5 mg/dL (8.5-10.1); Chloride 104 mmol/L (98-107); Creatinine, Serum 1.29 mg/dL (0.70-1.30); EST Glomerular Filtration Rate 57 mL/min (>60); Est Glom Filt Rate - Afr Amer 69 mL/min (>60); Estimated Creatinine Clearance 49.29 ml/min; Glucose 105 mg/dL (74-106); Potassium 4.4 mmol/L (3.5-5.1); Sodium Level 139 mmol/L (136-145)
[2019-07-14] MEDS: Enoxaparin 40 MG/0.4 ML Syringe SC (06:42)
[2019-07-14] MEDS: Aspirin 81 MG TAB.CHEW 162 MG PO (08:52)
[2019-07-14] MEDS: Ferrous Sulfate 325 MG Tablet PO (08:52)
[2019-07-14] MEDS: Folic Acid 1 MG Tablet PO (08:52)
--- NOTE | 2019-07-14 09:30 | PHA.CONS_ITS ---
<Aminata Lenz M - Last Filed: 07/14/19 09:30> Progress Note - Pharmacy Subjective: TCU Admission Objective: Allergies No Known Allergies Allergy (Verified 02/22/19 09:01) Current Medications Generic Name Dose Route Start Last Admin Trade Name Freq PRN Reason Stop Dose Admin Acetaminophen 1,000 mg 07/13/19 22:54 Tylenol PO Q6H PRN PRN MILD PAIN (1-3/10) Albuterol Sulfate 2.5 mg 07/13/19 19:17 Ventolin Aerosols INHALATION Q4H.RT PRN sob wheezing Amiodarone HCl 200 mg 07/14/19 06:00 07/14/19 04:58 Cordarone PO 200 mg BID [facility] Administration Ascorbic Acid 500 mg 07/14/19 06:00 07/14/19 04:59 Vitamin C PO 500 mg DAILY [place] Administration Aspirin 162 mg 07/14/19 08:00 07/14/19 08:52 Aspirin, Baby PO 162 mg DAILYCM [facility] Administration Atorvastatin Calcium 40 mg 07/13/19 22:00 07/13/19 21:23 Lipitor PO 40 mg QHS [facility] Administration Bisacodyl 10 mg 07/13/19 19:17 Dulcolax RECTAL DAILY PRN PRN Constipation Calamine/Phenol 1 applic 07/14/19 06:00 07/14/19 05:00 Calmoseptine Ointment TOPICAL 1 applicatio 0600,2200 [facility] Administration Protocol Cefdinir 300 mg 07/14/19 18:00 Omnicef [Equiv] PO 07/21/19 18:01 Q12 [facility] Cholecalciferol 5,000 unit 07/14/19 06:00 07/14/19 04:59 Vitamin D PO 5,000 unit DAILY [facility] Administration Enoxaparin Sodium 40 mg 07/14/19 06:00 07/14/19 06:42 Lovenox SC 40 mg DAILY@0600 [facility] Administration Ferrous Sulfate 325 mg 07/14/19 08:00 07/14/19 08:52 Ferrous Sulfate PO 325 mg DAILYCM [facility] Administration Fluticasone Propionate 1 spray 07/13/19 19:17 Flonase Nasal [place] NASAL DAILY PRN CONGESTION Folic Acid 1 mg 07/14/19 08:00 07/14/19 08:52 Folic Acid PO 1 mg DAILYCM [facility] Administration Furosemide 40 mg 07/14/19 06:00 07/14/19 04:58 Lasix PO 07/18/19 06:01 40 mg DAILY [place] Administration Lactobacillus Acidophilus 1 tablet 07/14/19 06:00 07/14/19 04:58 Acidophilus PO 1 tablet BID [place] Administration Metoprolol Tartrate 75 mg 07/13/19 22:00 07/14/19 04:58 Lopressor (Beta Bello) PO 75 mg Q8 [place] Administration Nystatin 1 applic 07/14/19 06:00 07/14/19 05:00 Mycostatin Powder TOPICAL 1 applicatio 0600,2200 [place] Administration Protocol Oxycodone HCl 2.5 mg 07/13/19 22:53 Oxyir PO Q4H PRN PRN SEVERE PAIN (6-10/10) Polyethylene Glycol 17 gm 07/14/19 06:00 07/14/19 04:56 Miralax PO Not Given DAILY [place] Potassium Chloride 20 meq 07/14/19 08:00 07/14/19 08:52 K-Dur PO 07/18/19 08:01 20 meq DAILYCM [place] Administration Senna/Docusate Sodium 2 tablet 07/14/19 06:00 07/14/19 04:56 Senokot-S, Harmony-Colace PO Not Given BID [place] Tamsulosin HCl 0.4 mg 07/14/19 06:00 07/14/19 04:58 Flomax PO 0.4 mg DAILY [place] Administration Tramadol HCl 50 mg 07/13/19 22:53 07/14/19 03:38 Ultram PO 50 mg Q6H PRN PRN Administration MODERATE PAIN (4-5/10) Tuberculin PPD 5 tu 07/14/19 10:00 Tubersol, Aplisol, Ppd ID 07/14/19 10:01 X1 ONE Tuberculin PPD 5 tu 07/21/19 10:00 Tubersol, Aplisol, Ppd ID 07/21/19 10:01 X1 ONE Problem List (Last Reviewed 02/14/19 @ 15:15 by Daria Meza) Debility (Acute) Coronary artery disease (Chronic) Hypertension (Chronic) Hematuria (Acute) BPH (benign prostatic hyperplasia) (Chronic) Allergic rhinitis (Chronic) Vitamin D deficiency (Chronic) Vital Signs Temp Pulse Resp BP Pulse Ox 98.2 F 91 18 142/57 H 97 07/13/19 18:02 07/14/19 04:58 07/13/19 18:02 07/14/19 04:58 07/13/19 20:32 Oxygen Delivery Method Room Air Weight: 96.5 kg Body Mass Index (BMI) 28.8 Sodium 139 mmol/L (136-145) 07/14/19 05:10 Potassium 4.4 mmol/L (3.5-5.1) 07/14/19 05:10 Chloride 104 mmol/L (98-107) 07/14/19 05:10 Carbon Dioxide 29.0 mmol/L (21.0-32.0) 07/14/19 05:10 6 (5-15) 07/14/19 05:10 BUN 19 mg/dL (7-18) H 07/14/19 05:10 1.29 mg/dL (0.70-1.30) 07/14/19 05:10 Est GFR (MDRD) Af Amer 69 mL/min (>60) 07/14/19 05:10 Est GFR (MDRD) Non-Af 57 mL/min (>60) L 07/14/19 05:10 14.7 RATIO (10-20) 07/14/19 05:10 Glucose 105 mg/dL (74-106) 07/14/19 05:10 Assessment/Plan: 1. Pain: Tylenol 1000mg PO Q6h PRN mild pain (1-3/10), tramadol 50mg PO Q6h PRN mod pain (4-5/10), Oxyir 2.5mg PO Q4h PRN severe pain (6-10/10). Please continue to monitor for signs/symptoms of increased/decreased pain. 2. Post-intubation tracheitis: Cefdinir 300mg PO Q12hrs x7 day course. To be completed 07/21/19. Please continue to monitor. 3. Atrial fibrillation: Metoprolol 75mg PO Q8h, Amiodarone 200mg PO BID. No anticoagulation indicated at this time due to history of afib s/p CABG per admitting note. Please continue to monitor BP, HR, and for signs/symptoms of amiodarone toxicity. *4. CAD S/P CABG x2: Metoprolol 75mg PO Q8h, Aspirin 162mg PO daily. Since patient is on Lovenox for DVT therapy, please consider decreasing aspirin to 81mg if clinically appropriate. Continue to monitor blood pressure, heart rate, and signs/symptoms of bleeding 5. Hyperlipidemia: Atorvastatin 40mg PO QHS. Last documented cholesterol panel in 12/2018. Please continue to monitor and would recommend annual cholesterol panels or as necessary. 6. Edema/Hypokalemia: Lasix 40mg PO daily and KCl 20meq daily. Both thru 07/18/19. Please continue to monitor fluid status, and potassium levels. 7. Shortness of breath: Ventolin aerosol: 2.5mg INH Q4h PRN. Please continue to monitor for signs/symptoms of increased/decreased shortness of breath. 8. Allergic rhinitis: Flonase 1 spray intranasally daily PRN congestion. Please continue to monitor for increased/decreased symptoms. 9. DVT Prophylaxis: Lovenox 40mg SC daily. Please continue to monitor daily for signs/symptoms of bruising/bleeding, as well as renal function. 10. BPH: Flomax 0.4mg PO daily. Please continue to monitor for S/S of increased or decreased BPH symptoms, urinary retention. 11. General Nutrient supplement/wellness: Acidophilus 1T PO BID, ascorbic acid 500mg PO daily, cholecalciferol 5,000 unit PO daily, ferrous sulfate 325mg PO daily, folic acid 1mg PO daily. Please continue to monitor. Check levels annually as clinically indicated/appropriate. Psychotropic Medications: None Unnecessary Medications: None Bowel Regimen: Bisacodyl 10mg rectal daily PRN, Miralax 17g PO daily, Senna/Docusate 2 tabs PO BID. Please continue to monitor for signs/symptoms of diarrhea and constipation Date of Note:: 07/14/19 - Provider Comments Provider responsibility: Provider responsible to enter orders to implement recommendations <Husam Khan Chi - Last Filed: 07/14/19 21:47> Progress Note - Pharmacy Subjective: [] Objective: Allergies No Known Allergies Allergy (Verified 02/22/19 09:01) Current Medications Generic Name Dose Route Start Last Admin Trade Name Freq PRN Reason Stop Dose Admin Acetaminophen 1,000 mg 07/13/19 22:54 Tylenol PO Q6H PRN PRN MILD PAIN (1-3/10) Albuterol Sulfate 2.5 mg 07/13/19 19:17 Ventolin Aerosols INHALATION Q4H.RT PRN sob wheezing Amiodarone HCl 200 mg 07/14/19 06:00 07/14/19 17:12 Cordarone PO 200 mg BID [place] Administration Ascorbic Acid 500 mg 07/14/19 06:00 07/14/19 04:59 Vitamin C PO 500 mg DAILY [place] Administration Aspirin 162 mg 07/14/19 08:00 07/14/19 08:52 Aspirin, Baby PO 162 mg DAILYCM [place] Administration Atorvastatin Calcium 40 mg 07/13/19 22:00 07/14/19 20:33 Lipitor PO 40 mg QHS [place] Administration Bisacodyl 10 mg 07/13/19 19:17 Dulcolax RECTAL DAILY PRN PRN Constipation Calamine/Phenol 1 applic 07/14/19 06:00 07/14/19 20:32 Calmoseptine Ointment TOPICAL 1 applicatio 0600,2200 [facility] Administration Protocol Cefdinir 300 mg 07/14/19 18:00 07/14/19 17:11 Omnicef [Equiv] PO 07/21/19 18:01 300 mg Q12 [place] Administration Cholecalciferol 5,000 unit 07/14/19 06:00 07/14/19 04:59 Vitamin D PO 5,000 unit DAILY [place] Administration Enoxaparin Sodium 40 mg 07/14/19 06:00 07/14/19 06:42 Lovenox SC 40 mg DAILY@0600 [place] Administration Ferrous Sulfate 325 mg 07/14/19 08:00 07/14/19 08:52 [facility] Fluticasone Propionate 1 spray 07/13/19 19:17 Flonase Nasal [place] NASAL DAILY PRN CONGESTION Folic Acid 1 mg 07/14/19 08:00 07/14/19 08:52 Folic Acid PO 1 mg DAILYCM [facility] Administration Furosemide 40 mg 07/14/19 06:00 07/14/19 04:58 Lasix PO 07/18/19 06:01 40 mg DAILY [place] Administration Lactobacillus Acidophilus 1 tablet 07/14/19 06:00 07/14/19 17:12 Acidophilus PO 1 tablet BID [place] Administration Metoprolol Tartrate 75 mg 07/13/19 22:00 07/14/19 20:34 Lopressor (Beta Bello) PO 75 mg Q8 [facility] Administration Nystatin 1 applic 07/14/19 06:00 07/14/19 20:32 Mycostatin Powder TOPICAL 1 applicatio 0600,2200 [place] Administration Protocol Oxycodone HCl 2.5 mg 07/13/19 22:53 07/14/19 20:42 Oxyir PO 2.5 mg Q4H PRN PRN Administration SEVERE PAIN (6-10/10) Polyethylene Glycol 17 gm 07/14/19 06:00 07/14/19 04:56 Miralax PO Not Given DAILY [place] Potassium Chloride 20 meq 07/14/19 08:00 07/14/19 08:52 K-Dur PO 07/18/19 08:01 20 meq DAILYCM [place] Administration Senna/Docusate Sodium 2 tablet 07/14/19 06:00 07/14/19 17:11 Senokot-S, Harmony-Colace PO Not Given BID [place] Tamsulosin HCl 0.4 mg 07/14/19 06:00 07/14/19 04:58 Flomax PO 0.4 mg DAILY [place] Administration Tramadol HCl 50 mg 07/13/19 22:53 07/14/19 11:10 Ultram PO 50 mg Q6H PRN PRN Administration MODERATE PAIN (4-5/10) Tuberculin PPD 5 tu 07/21/19 10:00 Tubersol, Aplisol, Ppd ID 07/21/19 10:01 X1 ONE Problem List (Last Reviewed 02/14/19 @ 15:15 by Daria Meza) Debility (Acute) Coronary artery disease (Chronic) Hypertension (Chronic) Hematuria (Acute) BPH (benign prostatic hyperplasia) (Chronic) Allergic rhinitis (Chronic) Vitamin D deficiency (Chronic) Vital Signs Temp Pulse Resp BP Pulse Ox 98.1 F 88 16 134/56 H 98 07/14/19 15:34 07/14/19 20:34 07/14/19 15:34 07/14/19 20:34 07/14/19 15:34 Oxygen Delivery Method Room Air Weight: 96.5 kg Body Mass Index (BMI) 28.8 Sodium 139 mmol/L (136-145) 07/14/19 05:10 Potassium 4.4 mmol/L (3.5-5.1) 07/14/19 05:10 Chloride 104 mmol/L (98-107) 07/14/19 05:10 Carbon Dioxide 29.0 mmol/L (21.0-32.0) 07/14/19 05:10 6 (5-15) 07/14/19 05:10 BUN 19 mg/dL (7-18) H 07/14/19 05:10 1.29 mg/dL (0.70-1.30) 07/14/19 05:10 Est GFR (MDRD) Af Amer 69 mL/min (>60) 07/14/19 05:10 Est GFR (MDRD) Non-Af 57 mL/min (>60) L 07/14/19 05:10 14.7 RATIO (10-20) 07/14/19 05:10 Glucose 105 mg/dL (74-106) 07/14/19 05:10 Assessment/Plan: Psychotropic Medications: Unnecessary Medications: Bowel Regimen: - Provider Comments Provider responsibility: Provider responsible to enter orders to implement recommendations Provider Comments to Recommendations by Pharmacy: Disagree: Define - Aspirin 162MG custom, 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
[2019-07-14 10:00] VITALS: O2SAT 96
[2019-07-14] MEDS: Tuberculin,Purif.prot.deriv. 50 TU/ML Vial 5 ML ID (11:45)
[2019-07-14 14:56] VITALS: BP 118/76; PULSE 85
[2019-07-14 15:34] VITALS: BP 118/76; PULSE 85; RESP 16; TEMP 36.7; O2SAT 98
[2019-07-14] MEDS: Cefdinir 300 MG Capsule PO (17:11)
--- NOTE | 2019-07-14 17:29 | NURSING ---
Pt noted to have blood on left sock when returning from therapy. Pt has small area on left [place]. Pt states he don't remember bumping his leg and don't know what happened. Area cleansed with NS. Adaptic applied and 2x2 secured with tape. Reported to Janee OLGUIN.
[2019-07-14] MEDS: Atorvastatin Calcium 40 MG Tablet PO (20:33)
[2019-07-14 20:34] VITALS: BP 134/56; PULSE 88
[2019-07-14] MEDS: oxyCODONE 5 MG Tablet 2.5 MG PO (20:42)
[2019-07-15] MEDS: oxyCODONE 5 MG Tablet 2.5 MG PO ×3 (02:31→20:46)
[2019-07-15] MEDS: Menthol/Lanolin/Calamine/Znox 113 GM Tube 1 APPLIC TOPICAL ×2 (05:29→20:52)
[2019-07-15 05:34] VITALS: BP 147/79; PULSE 79
[2019-07-15] MEDS: Metoprolol Tartrate 50 MG Tablet 75 MG PO ×3 (05:34→20:48)
[2019-07-15] MEDS: Polyethylene Glycol 3350 17 GM PACKET PO (05:34)
[2019-07-15] MEDS: Senna/Docusate Sodium 1 Tablet 2 TABLET PO ×2 (05:36→17:01)
[2019-07-15] MEDS: Nystatin Powder 15gm Bottle 1 APPLIC TOPICAL ×2 (05:36→20:52)
[2019-07-15] MEDS: Amiodarone 200 MG Tablet PO ×2 (05:36→17:00)
[2019-07-15] MEDS: Cefdinir 300 MG Capsule PO ×2 (05:36→17:00)
[2019-07-15] MEDS: Furosemide 40 MG Tablet PO (05:36)
[2019-07-15] MEDS: Ascorbic Acid 500 MG Tablet PO (05:36)
[2019-07-15] MEDS: Enoxaparin 40 MG/0.4 ML Syringe SC (05:37)
[2019-07-15] MEDS: Tamsulosin HCl 0.4 MG Capsule PO (05:37)
[2019-07-15] MEDS: Ferrous Sulfate 325 MG Tablet PO (08:10)
[2019-07-15] MEDS: Folic Acid 1 MG Tablet PO (08:10)
[2019-07-15] MEDS: Aspirin 81 MG TAB.CHEW 162 MG PO (08:10)
--- NOTE | 2019-07-15 09:03 | PCA ---
I was finishing up Lupillo when he said he had money in his dirty pants pocket that I placed in the closet. Lupillo had $40 in his pants. I handed it to him & he placed it in a denture cup in his top dreser drawer. He wants to get a haircut. I said for him to keep it hidden if he insisted to keep it in his possesion. I will speak with the Nurse to see if she can lock it up in his med box
--- NOTE | 2019-07-15 10:44 | NURSING ---
Therapy wheeling pt in hallway back to room states, we need a Nurse, he is Short of Breath. This nurse went back to assess pt. Applied 1L [place] oxygen. Spo2 was 95% on RA and 94% on 1L NC. BP was 163/87, HR 80. Pt continuously having dry coughing. CPS called for breathing tx. Pt states his SOB has gotten better, almost not there. This nurse will go back in 5 min and re-check Vitals.
[2019-07-15 10:58] VITALS: O2SAT 95
[2019-07-15 11:05] VITALS: PULSE 88; RESP 18; O2SAT 96
[2019-07-15] MEDS: Albuterol 2.5 MG/3 ML VIAL.NEB. INHALATION (11:05)
--- NOTE | 2019-07-15 11:33 | RAD_ITS ---
STUDY: X-RAY CHEST REASON FOR EXAM: Male, 79 years old. Shortness of breath, open heart surgery a few days ago. TECHNIQUE: PA and lateral chest COMPARISON: 02/15/2019 FINDINGS: Small bilateral pleural effusions, mild bibasilar atelectasis, no perihilar edema, no vascular congestion, no dense focal pulmonary infiltrate or consolidation, no pneumothorax. Median sternotomy. Unremarkable cardiomediastinal silhouette. No acute osseous or upper abdominal process. RAD/Chest PA and Lateral IMPRESSION: Small bilateral effusions, mild bibasilar atelectasis. Electronically Signed: Lupillo Orr MD at 14:00 EDT Tel , Service support ,
[2019-07-15 14:11] VITALS: BP 126/65; PULSE 98
[2019-07-15 15:29] VITALS: BP 119/78; PULSE 84; RESP 18; TEMP 36.6; O2SAT 93
[2019-07-15] MEDS: guaiFENesin 1,200 MG Tablet 1200 MG PO (16:59)
[2019-07-15] MEDS: Atorvastatin Calcium 40 MG Tablet PO (20:46)
[2019-07-15 20:48] VITALS: BP 136/86; PULSE 68
[2019-07-16] VITALS (12 sets, daily range): BP systolic 131–148; BP diastolic 59–72; PULSE 57–67; RESP 18–22; TEMP 36.9; O2SAT 2–100
[2019-07-16] MEDS: guaiFENesin 1,200 MG Tablet 1200 MG PO ×2 (05:38→17:38)
[2019-07-16] MEDS: Furosemide 40 MG Tablet PO (05:38)
[2019-07-16] MEDS: Cefdinir 300 MG Capsule PO ×2 (05:38→17:38)
[2019-07-16] MEDS: Tamsulosin HCl 0.4 MG Capsule PO (05:38)
[2019-07-16] MEDS: Ascorbic Acid 500 MG Tablet PO (05:38)
[2019-07-16] MEDS: Enoxaparin 40 MG/0.4 ML Syringe SC (05:39)
[2019-07-16] MEDS: Senna/Docusate Sodium 1 Tablet 2 TABLET PO ×2 (05:39→17:37)
[2019-07-16] MEDS: Amiodarone 200 MG Tablet PO ×2 (05:39→17:38)
[2019-07-16] MEDS: Metoprolol Tartrate 50 MG Tablet 75 MG PO ×3 (05:42→20:46)
[2019-07-16] MEDS: Polyethylene Glycol 3350 17 GM PACKET PO (05:51)
[2019-07-16] MEDS: Nystatin Powder 15gm Bottle 1 APPLIC TOPICAL ×2 (05:52→20:47)
[2019-07-16] MEDS: Menthol/Lanolin/Calamine/Znox 113 GM Tube 1 APPLIC TOPICAL ×2 (05:52→20:48)
--- NOTE | 2019-07-16 07:57 | NURSING ---
Pt continuing to have SOB c activity with 1L O2 via nasal cannula Sp02 95%. States, feel like not getting any air. Rn aware.
[2019-07-16] MEDS: Aspirin 81 MG TAB.CHEW 162 MG PO (08:11)
[2019-07-16] MEDS: Ferrous Sulfate 325 MG Tablet PO (08:12)
[2019-07-16] MEDS: oxyCODONE 5 MG Tablet 2.5 MG PO ×3 (08:12→22:14)
[2019-07-16] MEDS: Folic Acid 1 MG Tablet PO (08:12)
[2019-07-16] MEDS: Albuterol 2.5 MG/3 ML VIAL.NEB. INHALATION ×2 (08:51→16:33)
--- NOTE | 2019-07-16 16:03 | NURSING ---
PT FEELING SOB,HR 57,OXYGEN,96% ON 1L. CALLED FOR BREATHING TREAT,REPORTED TO SHARIF GHOSH.
--- NOTE | 2019-07-16 16:48 | NURSING ---
THIS NURSE AND AID FROM 2ND SHIFT DID PT WEIGHT AT 1620 ON STANDING SCALE. #[id number],REPORTED TO SHARIF GHOSH
[2019-07-16] MEDS: Atorvastatin Calcium 40 MG Tablet PO (20:45)
[2019-07-17] VITALS (8 sets, daily range): BP systolic 122–145; BP diastolic 64–67; PULSE 56–65; RESP 18–20; TEMP 36.6–37.1; O2SAT 96–100
[2019-07-17] MEDS: Enoxaparin 40 MG/0.4 ML Syringe SC (06:44)
[2019-07-17] MEDS: Senna/Docusate Sodium 1 Tablet 2 TABLET PO ×2 (06:45→17:46)
[2019-07-17] MEDS: Metoprolol Tartrate 50 MG Tablet 75 MG PO ×2 (06:45→20:40)
[2019-07-17] MEDS: Polyethylene Glycol 3350 17 GM PACKET PO (06:46)
[2019-07-17] MEDS: Amiodarone 200 MG Tablet PO ×2 (06:46→17:46)
[2019-07-17] MEDS: Tamsulosin HCl 0.4 MG Capsule PO (06:46)
[2019-07-17] MEDS: guaiFENesin 1,200 MG Tablet 1200 MG PO ×2 (06:46→17:46)
[2019-07-17] MEDS: Ascorbic Acid 500 MG Tablet PO (06:46)
[2019-07-17] MEDS: Cefdinir 300 MG Capsule PO ×2 (06:46→17:45)
[2019-07-17] MEDS: Furosemide 40 MG Tablet PO (06:46)
[2019-07-17] MEDS: Menthol/Lanolin/Calamine/Znox 113 GM Tube 1 APPLIC TOPICAL ×2 (06:49→20:41)
[2019-07-17] MEDS: Nystatin Powder 15gm Bottle 1 APPLIC TOPICAL ×2 (06:50→20:41)
[2019-07-17] MEDS: oxyCODONE 5 MG Tablet 2.5 MG PO ×2 (08:14→20:41)
[2019-07-17] MEDS: Folic Acid 1 MG Tablet PO (08:17)
[2019-07-17] MEDS: Ferrous Sulfate 325 MG Tablet PO (08:17)
[2019-07-17] MEDS: Aspirin 81 MG TAB.CHEW 162 MG PO (08:18)
--- NOTE | 2019-07-17 14:17 | NURSING ---
DURING PT ASSESSMENT PT NATHANIEL LEGS AND FEET X3 NONPITTING. RIGHT SIDE OF PT NECK HAS RED SORE AREA FROM O2 TUBING FROM RUBBING, DRESSING APPLIED AND PT WEIGHT HAS INCREASED A LITTLE EACH DAY. HR LOW AT 56, BP 122/64. LOPRESSOR HELD PER PARAMETERS PER SHARIF TROY. NO COMPLAINTS OF SOB. SHARIF TROY AWARE
--- NOTE | 2019-07-17 14:27 | NURSING ---
Patient's pulse 56, BP 122/64. Pulse rechecked apically, 55. Dr. Navarro made aware per order, okay to hold metoprolol any time patient's HR is less than 60.
[2019-07-17] MEDS: Albuterol 2.5 MG/3 ML VIAL.NEB. INHALATION (14:45)
--- NOTE | 2019-07-17 15:37 | NURSING ---
Pt has c/o cough that is worse at HS, keeping him up. 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 Dr. Khan made aware. New order for Tessalon Perles 100mg PO TID PRN.
[2019-07-17] MEDS: Benzonatate 100 MG Capsule PO (20:40)
[2019-07-17] MEDS: Atorvastatin Calcium 40 MG Tablet PO (20:42)
[2019-07-18] VITALS (7 sets, daily range): BP systolic 130–145; BP diastolic 55–80; PULSE 55–128; RESP 17–18; TEMP 36.9; O2SAT 96–99
[2019-07-18] MEDS: oxyCODONE 5 MG Tablet 2.5 MG PO (02:43)
[2019-07-18] MEDS: traMADol 50 MG Tablet PO ×3 (03:49→21:19)
[2019-07-18] MEDS: Nystatin Powder 15gm Bottle 1 APPLIC TOPICAL ×2 (06:23→21:12)
[2019-07-18] MEDS: Senna/Docusate Sodium 1 Tablet 2 TABLET PO (06:23)
[2019-07-18] MEDS: Menthol/Lanolin/Calamine/Znox 113 GM Tube 1 APPLIC TOPICAL ×2 (06:23→21:12)
[2019-07-18] MEDS: Amiodarone 200 MG Tablet PO ×2 (06:24→18:21)
[2019-07-18] MEDS: Cefdinir 300 MG Capsule PO (06:24)
[2019-07-18] MEDS: Enoxaparin 40 MG/0.4 ML Syringe SC (06:24)
[2019-07-18] MEDS: Polyethylene Glycol 3350 17 GM PACKET PO (06:24)
[2019-07-18] MEDS: guaiFENesin 1,200 MG Tablet 1200 MG PO ×2 (06:24→18:21)
[2019-07-18] MEDS: Ascorbic Acid 500 MG Tablet PO (06:24)
[2019-07-18] MEDS: Furosemide 40 MG Tablet PO (06:24)
[2019-07-18] MEDS: Tamsulosin HCl 0.4 MG Capsule PO (06:24)
[2019-07-18] MEDS: Ferrous Sulfate 325 MG Tablet PO (08:44)
[2019-07-18] MEDS: Aspirin 81 MG TAB.CHEW 162 MG PO (08:44)
[2019-07-18] MEDS: Folic Acid 1 MG Tablet PO (08:44)
[2019-07-18] MEDS: Benzonatate 100 MG Capsule PO ×2 (09:01→21:22)
--- NOTE | 2019-07-18 11:35 | NURSING ---
Pt has redness noted to inner left lower lebron. Area warm and c/o area being sore. Reported to Janee OLGUIN.
--- NOTE | 2019-07-18 12:09 | NURSING ---
Addendum entered by Janee Knight 07/18/19 18:30: and pt updated. Addendum entered by Janee Knight 07/18/19 18:10: Dr Khan assessed LLE redness and RT neck redness,blistering. New orders entered for keflex, Doxy, & zovirax. DC cefdinir. pt placed in contact isolation. Original Note: Pt has reddened area to rt side of neck with blistering. Pt c/o tenderness to area. Reported to Janee RN. Area left uncovered at this time per Janee.
--- NOTE | 2019-07-18 17:03 | VDLE_ITS ---
Reason For Study: pain RIGHT LEFT GSV is normal. LT GSV absent. CFV is compressible, spontaneous, phasic, CFV is compressible, spontaneous, phasic, competent and demonstrates normal competent, and demonstrates normal augmentation. augmentation. FV is compressible, spontaneous, phasic, FV is compressible, spontaneous, phasic, competent and demonstrates normal competent and demonstrates normal augmentation. augmentation. POP V is compressible, spontaneous, phasic, POP V is compressible, spontaneous, phasic, competent and demonstrates normal competent and demonstrates normal augmentation. augmentation. T/P Trunk is compressible. T/P Trunk is compressible. PTV is compressible. PTV is compressible. RT PerV is compressible. LT PerV is compressible. Procedure Exam performed portable in patient room. The exam was diagnostic. A preliminary report was called and/or faxed to Janee OLGUIN on TCU. Interpretation Summary Deep veins of the lower extremities are bilaterally patent and compressible segmentally. There is no evidence of deep vein thrombosis on either side. Valvular competence appears intact within the proximal deep venous systems bilaterally. The great saphenous veins appear bilaterally patent and compressible segmentally. Ordering Physician: Husam Khan Referring Physician: Valdez Howell Performed By: Shannon Alves, BATSHEVA, RVT
[2019-07-18] MEDS: Doxycycline 100 MG CAPSULE PO (18:21)
[2019-07-18] MEDS: Acyclovir 800 MG Tablet PO ×2 (18:21→20:59)
--- NOTE | 2019-07-18 19:09 | PN_ITS ---
Subjective: Resident seen in room, sitting in recliner. Nursing staff noted rash right upper neck, under jaw. He also has redness, swelling, warmth to left lower extremity, where vein harvest site is located. Vitals/I&O's: Vital Signs Temp Pulse Resp BP Pulse Ox 98.4 F 59 L 17 143/64 H 99 07/18/19 15:55 07/18/19 15:55 07/18/19 15:55 07/18/19 15:55 07/18/19 15:55 Oxygen Flow Rate (L/min) 2 Oxygen Delivery Method Room Air Weight: 97.154 kg Body Mass Index (BMI) 28.8 Intake and Output for Last 24 Hours 07/16/19 07/17/19 07/18/19 23:59 23:59 23:59 Intake Total 1650 / 1650 2353 / 2353 610 / 610 Output Total 850 / 850 1300 / 1300 500 / 500 Balance 800 / 800 1053 / 1053 110 / 110 Past Medical History Past Medical History (Chronic Problems): Chronic Problems (Last Updated 03/02/19 @ 14:34 by Geno Chapa) Coronary artery disease (Chronic) Hypertension (Chronic) BPH (benign prostatic hyperplasia) (Chronic) Allergic rhinitis (Chronic) Vitamin D deficiency (Chronic) History of right and left heart catheterization (Chronic 03/02/19) Aortic Valve Area: 1.11 Aortic Valve Index: 0.54 Aortic Valve Mean Gradient: 40.4; Mitral Valve Area: 1.24 Mitral Valve index: 0.6 Mitral Valve Mean Gradient: 14.2; Right Heart pressures - elevated; LEFT MAIN: Angiographically normal; LEFT ANTERIOR DECENDING ARTERY: Mild luminal irregularities less than 30%; CIRCUMFLEX ARTERY: Mild luminal irregularities less than 30%; RIGHT CORONARY ARTERY: Mild luminal irregularities less than 30% VALVE FINDINGS: Aortic Valve Stenosis - severe per R&LHC 03/02/19 per DJN @ [facility] Aortic stenosis (Chronic) Severe per echo 12/06/2018 @ [facility] Mitral valve annular calcification (Chronic) Mild per echo 12/06/18 done @ [facility] by Dr. José Miguel Gutierrez. No regurgitation. Nonrheumatic aortic (valve) stenosis (Chronic) Per echo 12/06/[address] José Miguel Gutierrez at [facility]: Moderate to severely calcified annulus, trileaflet, moderately calcified leaflets. Severe stenosis,no regurgitation. Mean gradient 44mmhg, Valve area 0.6 cm2. Incidentally, EF 68 % per echo. Left bundle branch block (Chronic) Anemia (Chronic) Hgb 9.7 on 01/20/19, ord by Dr. Howell (PCP) Hyperlipidemia (Chronic) Essential (primary) hypertension (Chronic) Umbilical hernia, incarcerated (Chronic 12/04/18) [facility] Medical History: Medical History (Last Reviewed 02/14/19 @ 15:15 by Daria Meza) Iron deficiency anemia (Acute) D50.9 Aortic stenosis (Chronic) I35.0 Severe per echo 12/06/2018 @ [facility] Bowel obstruction (Acute) K56.609 Repaired at [facility] 12/04/18 Mitral valve annular calcification (Chronic) I05.9 Mild per echo 12/06/18 done @ [facility] by Dr. José Miguel Gutierrez. No regurgitation. Atrial fibrillation with rapid ventricular response (Acute) I48.91 Acute metabolic encephalopathy (Acute) G93.41 Acute kidney injury (Acute) N17.9 Nonrheumatic aortic (valve) stenosis (Chronic) I35.0 Per echo 12/06/[address] José Miguel Gutierrez at [facility]: Moderate to severely calcified annulus, trileaflet, moderately calcified leaflets. Severe stenosis,no regurgitation. Mean gradient 44mmhg, Valve area 0.6 cm2. Incidentally, EF 68 % per echo. Prolonged QT interval (Acute) R94.31 Left bundle branch block (Chronic) I44.7 Anemia (Chronic) D64.9 Hgb 9.7 on 01/20/19, ord by Dr. Howell (PCP) Hyperlipidemia (Chronic) E78.5 Essential (primary) hypertension (Chronic) I10 Declining functional status R53.81 Cognitive deficits R41.89 Vitamin D deficiency E55.9 Allergies No Known Allergies Allergy (Verified 02/22/19 09:01) Home Medications: Ambulatory Orders Medication Instructions Recorded cholecalciferol (vitamin D3) 5,000 5,000 unit PO DAILY 02/01/19 unit capsule Polyethylene Glycol 3350 [Miralax] 17 gm PO DAILY PRN 02/18/19 Ferrous Sulfate 325 mg PO DAILY 03/01/19 Fluticasone 0.05% [Flonase Nasal 1 spray NASAL DAILY PRN 03/01/19 [place]] Acetaminophen [Tylenol] 325 mg PO Q4H PRN PRN 07/13/19 Albuterol Aerosols [Ventolin 3 ml INHALATION Q4H PRN PRN 07/13/19 Aeros[place]] Amiodarone HCl [Pacerone] 200 mg PO BID 07/13/19 Ascorbic Acid [Vitamin C] 500 mg PO DAILY 07/13/19 Aspirin [Aspirin, Baby] 162 mg PO DAILY 07/13/19 Atorvastatin Calcium [Lipitor] 40 mg PO QHS 07/13/19 Bisacodyl [Dulcolax] 10 mg RECTAL DAILY PRN PRN 07/13/19 Folic Acid 1 mg PO DAILY 07/13/19 Furosemide [Lasix] 40 mg PO DAILY 07/13/19 Lactobacillus Acidophilus 1 cap PO BID 07/13/19 [Acidophilus Lactobacilli] Metoprolol Tartrate 75 mg PO Q8H 07/13/19 Potassium Chloride [Klor-Con M20] 20 meq PO DAILY 07/13/19 Sennosides/Docusate Sodium 1 tab PO DAILY PRN PRN 07/13/19 [Senna-S Tablet] Tamsulosin HCl [Flomax] 0.4 mg PO DAILY 07/13/19 Surgical History: Surgical History (Last Updated 03/02/19 @ 14:34 by Geno Chapa) History of right and left heart catheterization (Chronic) Onset Date: 03/02/19 Z98.890 Aortic Valve Area: 1.11 Aortic Valve Index: 0.54 Aortic Valve Mean Gradient: 40.4; Mitral Valve Area: 1.24 Mitral Valve index: 0.6 Mitral Valve Mean Gradient: 14.2; Right Heart pressures - elevated; LEFT MAIN: Angiographically normal; LEFT ANTERIOR DECENDING ARTERY: Mild luminal irregularities less than 30%; CIRCUMFLEX ARTERY: Mild luminal irregularities less than 30%; RIGHT CORONARY ARTERY: Mild luminal irregularities less than 30% VALVE FINDINGS: Aortic Valve Stenosis - severe per R&LHC 03/02/19 per DJN @ [facility] Umbilical hernia, incarcerated (Chronic) Onset Date: 12/04/18 K42.0 [facility] S/P partial colectomy Z90.49 Surgical History: herniorrhaphy - Umbilical hernia repair. Psychiatric History: No pertinent psych hx Lives: With Family - Lives with sister. Smoking Status: Former smoker Tobacco Use: Non-smoker Alcohol: Occasional Drugs: None - *Family History Maternal Family History: Family History (Last Reviewed 02/14/19 @ 15:16 by Daria Meza) Father Cancer Sister Cancer History Items: No pertinent history Paternal Family History: Family History (Last Reviewed 02/14/19 @ 15:16 by Daria Meza) Father Cancer Sister Cancer History Items: No pertinent history Capacity - Capacity Assessment Tool Can the patient make a choice & communicate that choice?: Yes Can the patient understand benefits, risks and alternatives?: Yes Can the patient make a logical, rational choice?: Yes Is the choice the patient makes consistent w/ their values?: Yes Is there an impending, emergent risk to the patient?: No Does the patient have an Advance Directive?: No Is there a Surrogate Available?: Yes i.e. HCPOA: Yes i.e. close relative (spouse, child, parent, sibling)?: Yes Review of Systems Constitutional: Denies: Chills, Fever, Weight Change HEENT: Denies: Head Aches, Sinus Congestion, Sinus Drainage Cardiovascular: Denies: Chest Pain, Palpitations Respiratory: Denies: Cough, Shortness of breath at rest, Sputum production Gastrointestinal: Denies: Abdominal Pain, Nausea, Vomiting Genitourinary: Denies: Dysuria Musculoskeletal: Denies: Joint Pain, Joint Tenderness Skin: Denies: Rash, Wounds Neurological: Denies: Numbness, Tingling, Focal weakness Psychiatric: Denies: Anxiety, Depression, Homicidal Ideations, Suicidal Ideations Hematologic/ Lymphatic: Denies: Easy Bruising, Easy Bleeding Patient Problems: Active and Suspected Problems (Last Reviewed 02/14/19 @ 15:15 by Daria Meza) Debility (Acute) Hematuria (Acute) - Physical Exam General: Alert, Oriented x3, Cooperative HEENT: Atraumatic, PERRLA, EOMI, Normocephalic Neck: Supple, No JVD, Negative Carotid Bruits Lungs: Clear to auscultation, Normal air movement Cardiovascular: Regular rate, No murmurs Abdomen: Bowel Sounds Present, Soft, Non Tender Extremities: Capillary Refill Less than 3 Seconds, Edema - 1+ pitting left lower extremity., Tenderness - Left lower extremity., - - Erythema left lower extremity. Skin: No breakdown, Rash Present - Erythematous, blistery rash under right jaw. Musculoskeletal: No Tenderness to Palpation of Joints or Extremities Neurological: Cranial nerves II-XII grossly intact Psych/Mental Status: Normal Affect, Appropriate Vital Signs Temp Pulse Resp BP Pulse Ox 98.4 F 59 L 17 143/64 H 99 07/18/19 15:55 07/18/19 15:55 07/18/19 15:55 07/18/19 15:55 07/18/19 15:55 Oxygen Flow Rate (L/min) 2 Oxygen Delivery Method Room Air Weight: 97.154 kg Body Mass Index (BMI) 28.8 Intake and Output for Last 24 Hours 07/16/19 07/17/19 07/18/19 23:59 23:59 23:59 Intake Total 1650 / 1650 2353 / 2353 610 / 610 Output Total 850 / 850 1300 / 1300 500 / 500 Balance 800 / 800 1053 / 1053 110 / 110 Assessment/Plan All Active Problems (Last Reviewed 02/14/19 @ 15:15 by Daria Meza) Debility (Acute) Hematuria (Acute) Iron deficiency anemia (Acute) Bowel obstruction (Acute) Atrial fibrillation with rapid ventricular response (Acute) Acute metabolic encephalopathy (Acute) Acute kidney injury (Acute) Prolonged QT interval (Acute) 79 year old male with below past medical history hospitalized for CABG x 2 07/04/[address] Jackson, post-operative course complicated by acute respiratory failure, hematuria, atrial fibrillation with rapid ventricular response, acute delirium, admitted to TCU with debility, here for rehabilitation, strengthening, prior to discharge home alone. * Rash - consistent with Herpes Zoster. * Herpes Zoster - Acyclovir 800MG 5x/day x 7 days, * Edema - Left lower extremity, Order doppler ultrasound of bilateral lower extremity to evaluate for DVT. * Cellulitis of left lower extremity - Keflex 500MG BID, Doxycycline 100MG BID x 7 days.
[2019-07-18] MEDS: Cephalexin 500 MG Capsule PO (19:29)
[2019-07-18] MEDS: Atorvastatin Calcium 40 MG Tablet PO (20:59)
[2019-07-18] MEDS: Metoprolol Tartrate 50 MG Tablet 75 MG PO (21:22)
--- NOTE | 2019-07-18 22:54 | NURSING ---
Pt Bp-141/80, Apical 128 report to RN @ 2 given lopressor at this time. Rechecked apical @ 2230 109 resting in bed with call light within reach. No concerns voiced during this time.
[2019-07-19] MEDS: Cephalexin 500 MG Capsule PO ×2 (05:41→17:27)
[2019-07-19] MEDS: Amiodarone 200 MG Tablet PO ×2 (05:41→17:27)
[2019-07-19] MEDS: Polyethylene Glycol 3350 17 GM PACKET PO (05:41)
[2019-07-19] MEDS: Ascorbic Acid 500 MG Tablet PO (05:42)
[2019-07-19] MEDS: Senna/Docusate Sodium 1 Tablet 2 TABLET PO ×2 (05:42→17:28)
[2019-07-19] MEDS: guaiFENesin 1,200 MG Tablet 1200 MG PO ×2 (05:42→17:27)
[2019-07-19] MEDS: Acyclovir 800 MG Tablet PO ×5 (05:42→20:53)
[2019-07-19] MEDS: Doxycycline 100 MG CAPSULE PO ×2 (05:42→17:27)
[2019-07-19] MEDS: Tamsulosin HCl 0.4 MG Capsule PO (05:45)
[2019-07-19] MEDS: Enoxaparin 40 MG/0.4 ML Syringe SC (05:52)
[2019-07-19] MEDS: Menthol/Lanolin/Calamine/Znox 113 GM Tube 1 APPLIC TOPICAL ×2 (05:54→20:52)
[2019-07-19 05:55] VITALS: BP 144/85; PULSE 105
[2019-07-19] MEDS: Nystatin Powder 15gm Bottle 1 APPLIC TOPICAL ×2 (05:55→20:54)
[2019-07-19] MEDS: Metoprolol Tartrate 50 MG Tablet 75 MG PO ×2 (05:55→21:01)
[2019-07-19] MEDS: Folic Acid 1 MG Tablet PO (08:00)
[2019-07-19] MEDS: oxyCODONE 5 MG Tablet 2.5 MG PO ×2 (08:00→17:32)
[2019-07-19] MEDS: Aspirin 81 MG TAB.CHEW 162 MG PO (08:00)
[2019-07-19] MEDS: Ferrous Sulfate 325 MG Tablet PO (08:00)
[2019-07-19 08:09] VITALS: PULSE 88; RESP 18; O2SAT 97
--- NOTE | 2019-07-19 10:25 | NURSING ---
SOFTWARE INTEGRATOR REPORTED NEGATIVE DOPPLER OF LEGS. PT UPDATED.
[2019-07-19] MEDS: traMADol 50 MG Tablet PO ×2 (10:35→21:05)
--- NOTE | 2019-07-19 11:46 | NURSING ---
Addendum entered by Janee Constantino Eugene 07/19/19 16:09: attempted to call sisterHelena, no answer, message left on machine. Addendum entered by Janee Constantino Eugene 07/19/19 16:04: appt rescheduled for 07/28 at 3p, [facility] transport to picking tech at 2pm. pt updated. Original Note: Dr Jackson's nurse called & stated that pt sister feels that she will not be able to transport pt to appt on 07/20 d/t pt being on oxygen and pt having shingles. updated nurse that pt was placed on po ATBs for cellulitis and shingles. doppler negative for dvt's. will call back and change appt day & time so that pt can be transported by van. TCU office secretary attempted calling all transport companys and none available to transport tomorrow. awaiting return call from Dr Davidson nurse.
[2019-07-19 15:21] VITALS: PULSE 56
[2019-07-19 15:29] VITALS: BP 117/54; PULSE 56; RESP 18; TEMP 36.7; O2SAT 100
--- NOTE | 2019-07-19 16:03 | CASEMGMT ---
Social Work IDT met with patient and sister for care plan meeting. Discussed patient's progress in therapy. Patient is SBA for all tasks. Min assist for lower body dressing and bathing. Patient will discharge home living with sister. Patient will continue to work with therapy on becoming more independent and stronger. Explained Medicare benefits. Will continue to follow for discharge planning. Jessica Fabian MSW DENSITOMETRIST
[2019-07-19] MEDS: Atorvastatin Calcium 40 MG Tablet PO (20:53)
[2019-07-19 21:00] VITALS: PULSE 62; RESP 18; O2SAT 99
[2019-07-19 21:01] VITALS: BP 146/56; PULSE 60
[2019-07-19] MEDS: Benzonatate 100 MG Capsule PO (21:05)
--- NOTE | 2019-07-19 23:53 | NURSING ---
Appears to be sleeping, Resp even and unlabored at this time
[2019-07-20 06:16] VITALS: BP 144/67; PULSE 56
[2019-07-20] MEDS: guaiFENesin 1,200 MG Tablet 1200 MG PO ×2 (06:17→18:00)
[2019-07-20] MEDS: Polyethylene Glycol 3350 17 GM PACKET PO (06:17)
[2019-07-20] MEDS: Doxycycline 100 MG CAPSULE PO ×2 (06:18→18:00)
[2019-07-20] MEDS: Ascorbic Acid 500 MG Tablet PO (06:18)
[2019-07-20] MEDS: Amiodarone 200 MG Tablet PO ×2 (06:18→18:00)
[2019-07-20] MEDS: Cephalexin 500 MG Capsule PO ×2 (06:18→18:00)
[2019-07-20] MEDS: Acyclovir 800 MG Tablet PO ×5 (06:18→22:15)
[2019-07-20] MEDS: Tamsulosin HCl 0.4 MG Capsule PO (06:18)
[2019-07-20] MEDS: Senna/Docusate Sodium 1 Tablet 2 TABLET PO ×2 (06:18→18:00)
[2019-07-20] MEDS: Enoxaparin 40 MG/0.4 ML Syringe SC (06:19)
[2019-07-20] MEDS: Nystatin Powder 15gm Bottle 1 APPLIC TOPICAL ×2 (06:20→22:10)
[2019-07-20] MEDS: Menthol/Lanolin/Calamine/Znox 113 GM Tube 1 APPLIC TOPICAL ×2 (06:20→22:09)
[2019-07-20 06:30] VITALS: PULSE 61; RESP 18; O2SAT 98
[2019-07-20] MEDS: Aspirin 81 MG TAB.CHEW 162 MG PO (09:28)
[2019-07-20] MEDS: Ferrous Sulfate 325 MG Tablet PO (09:29)
[2019-07-20] MEDS: Folic Acid 1 MG Tablet PO (09:29)
[2019-07-20] MEDS: oxyCODONE 5 MG Tablet 2.5 MG PO ×2 (09:34→22:15)
--- NOTE | 2019-07-20 09:39 | NURSING ---
PT RESTING IN RECLINER,ALL CARE GIVEN IN ROOM DUE TO PT IN PRECAUTIONS .
[2019-07-20 14:06] VITALS: BP 135/64; PULSE 62; O2SAT 98
[2019-07-20 14:08] VITALS: BP 135/64; PULSE 62
[2019-07-20] MEDS: Metoprolol Tartrate 50 MG Tablet 75 MG PO (14:08)
[2019-07-20] MEDS: Benzonatate 100 MG Capsule PO ×2 (14:08→22:15)
--- NOTE | 2019-07-20 14:17 | CHAPLAIN ---
Type of Pastoral Visit ___ Initial Visit ___ Follow-up Visit ___ On-call Visit ___ General Patient Visit ___ Spiritual Assessment ___ Family Conference ___ Bereavement ___ Rapid Response ___ Code Blue _x__ Other (describe below) Pastoral Care Referral From ___ Patient ___ Family ___ Nurse ___ Physician ___ Program Counselor ___ Senior Librarian ___ Other (describe below) Sacrament/Intervention ___ Active listening ___ Anointing ___ Holiness ___ Bereavement ___ Communion ___ Ashley exploration ___ ___ Life review ___ Prayer ___ Reconciliation ___ Sacrament of Sick ___ Supportive presence ___ Wedding ___ Other (describe below) Pastoral Comments patient declined visit by this radiology therapist today due to I have shingles, don't come in; offered for future support given
[2019-07-20 15:01] VITALS: BP 129/67; PULSE 58; RESP 18; TEMP 36.8; O2SAT 99
[2019-07-20] MEDS: Atorvastatin Calcium 40 MG Tablet PO (22:14)
[2019-07-20 22:17] VITALS: PULSE 58
[2019-07-21] MEDS: oxyCODONE 5 MG Tablet 2.5 MG PO ×2 (02:48→15:04)
[2019-07-21 05:46] LABS: Absolute Lymphocyte Count 1.08 X10^3/uL (0.83-4.51); Absolute Neutrophil Count 2.9 X10^3/uL (2.0-7.7); Basophil# 0.01 X10^3/uL; Basophil% 0.2 % (0-1); Eosinophil# 0.08 X10^3/uL; Eosinophils% 1.6 % (0-5); Hematocrit 25.7 % (40-54); Hemoglobin 7.7 g/dL (13.0-16.5); Lymphocyte # 1.08 X10^3/ul (4.0); Lymphocyte % 21.6 % (19-41); Mean Corpuscular Hgb 29.1 pg (27.0-32.0); Mean Platelet Vol. 9.2 fl (6.2-12.0); Monocyte# 0.95 X10^3/uL; NRBC Flagged by Analyzer 0 % (0-5); Neutrophil # 2.87 X10^3/uL (2.7-7.7); Neutrophil % 57.2 % (47-70); Platelet Count 257 K/mm3 (150-450); RBC Distribution Width CV 13.9 % (11.6-14.6); RBC Distribution Width SD 48.8 fl (35.1-43.9); Red Blood Count 2.65 M/mm3 (4.6-6.2)
[2019-07-21 05:59] LABS: Anion Gap 5 (5-15); BUN 13 mg/dL (7-18); BUN/Creat Ratio 10.3 RATIO (10-20); Calcium,Total 8.4 mg/dL (8.5-10.1); Chloride 104 mmol/L (98-107); Creatinine, Serum 1.26 mg/dL (0.70-1.30); EST Glomerular Filtration Rate 58 mL/min (>60); Est Glom Filt Rate - Afr Amer 71 mL/min (>60); Estimated Creatinine Clearance 50.47 ml/min; Glucose 94 mg/dL (74-106); Sodium Level 143 mmol/L (136-145)
[2019-07-21] MEDS: Menthol/Lanolin/Calamine/Znox 113 GM Tube 1 APPLIC TOPICAL ×2 (06:12→20:46)
[2019-07-21] MEDS: Nystatin Powder 15gm Bottle 1 APPLIC TOPICAL ×2 (06:12→20:46)
[2019-07-21] MEDS: Amiodarone 200 MG Tablet PO (06:15)
[2019-07-21] MEDS: Doxycycline 100 MG CAPSULE PO ×2 (06:15→17:40)
[2019-07-21] MEDS: Tamsulosin HCl 0.4 MG Capsule PO (06:16)
[2019-07-21] MEDS: Enoxaparin 40 MG/0.4 ML Syringe SC (06:16)
[2019-07-21] MEDS: Cephalexin 500 MG Capsule PO ×2 (06:16→17:40)
[2019-07-21 06:17] VITALS: O2SAT 96
[2019-07-21] MEDS: Acyclovir 800 MG Tablet PO ×5 (06:17→20:47)
[2019-07-21] MEDS: guaiFENesin 1,200 MG Tablet 1200 MG PO ×2 (06:17→17:40)
[2019-07-21] MEDS: Ascorbic Acid 500 MG Tablet PO (06:17)
[2019-07-21] MEDS: Polyethylene Glycol 3350 17 GM PACKET PO (06:17)
[2019-07-21] MEDS: Senna/Docusate Sodium 1 Tablet 2 TABLET PO (06:17)
[2019-07-21 06:23] VITALS: PULSE 56
[2019-07-21] MEDS: Folic Acid 1 MG Tablet PO (07:47)
[2019-07-21] MEDS: Aspirin 81 MG TAB.CHEW 162 MG PO (07:47)
[2019-07-21] MEDS: Ferrous Sulfate 325 MG Tablet PO (07:47)
[2019-07-21] MEDS: Tuberculin,Purif.prot.deriv. 50 TU/ML Vial 5 ML ID (11:07)
--- NOTE | 2019-07-21 14:40 | EKG12_ITS ---
Test Reason : Blood Pressure : / mmHG Vent. Rate : 071 BPM Atrial Rate : 071 BPM P-R Int : 236 ms QRS Dur : 108 ms QT Int : 430 ms P-R-T Axes : 073 -40 133 degrees QTc Int : 467 ms Sinus rhythm with 1st degree A-V block Left axis deviation Septal infarct , age undetermined T wave abnormality, consider lateral ischemia Abnormal ECG Confirmed by RASHEL ZAMARRIPA, HELLEN ([id number]), news editor ALFREDO CARTER ([id number]) on 07/26/2019 12:07:07 PM Referred By: Husam Khan Confirmed By:HELLEN KISER MD
[2019-07-21 14:44] VITALS: BP 155/66; PULSE 73
[2019-07-21] MEDS: Metoprolol Tartrate 50 MG Tablet 75 MG PO (14:44)
--- NOTE | 2019-07-21 14:56 | NURSING ---
PT REMAINS IN CONTACT ISOLATION PRECAUTIONS FOR SHINGLES. ALL CARE/THERAPY PROVIDED IN PT ROOM
--- NOTE | 2019-07-21 15:15 | NURSING ---
Addendum entered by Janee Knight 07/21/19 16:15: JOSEPH Sylvester of Dr Jackson returned call and updated on EKG results and to change lopressor to 25mg BID and amiodarone 200mg daily. pt updated on all. Original Note: Notified Dr Jackson's office regarding low HR at times <60. been holding lopressor sometimes BID, scheduled TID. Message left with nurse, she will call back with any new orders. EKG done, shows SR w/1 deg AVB. awaiting return call.
[2019-07-21 15:28] VITALS: BP 155/66; PULSE 73; RESP 20; TEMP 36.9; O2SAT 97
[2019-07-21 15:34] VITALS: PULSE 68
--- NOTE | 2019-07-21 16:37 | NURSING ---
dr garcía notified of + occult stool, new orders entered for h/h on 07/27, dc vit c, aspirin, lovenox.
[2019-07-21] MEDS: Atorvastatin Calcium 40 MG Tablet PO (20:46)
[2019-07-21] MEDS: Benzonatate 100 MG Capsule PO (20:55)
[2019-07-21] MEDS: traMADol 50 MG Tablet PO (20:55)
[2019-07-22] MEDS: oxyCODONE 5 MG Tablet 2.5 MG PO ×3 (06:57→21:55)
[2019-07-22] MEDS: Polyethylene Glycol 3350 17 GM PACKET PO (06:58)
[2019-07-22 06:59] VITALS: BP 128/82; PULSE 90
[2019-07-22] MEDS: Cephalexin 500 MG Capsule PO ×2 (06:59→17:44)
[2019-07-22] MEDS: Metoprolol Tartrate 25 MG Tablet PO ×2 (06:59→17:44)
[2019-07-22] MEDS: Doxycycline 100 MG CAPSULE PO ×2 (06:59→17:44)
[2019-07-22] MEDS: guaiFENesin 1,200 MG Tablet 1200 MG PO ×2 (07:00→17:45)
[2019-07-22] MEDS: Amiodarone 200 MG Tablet PO (07:00)
[2019-07-22] MEDS: Tamsulosin HCl 0.4 MG Capsule PO (07:00)
[2019-07-22] MEDS: Nystatin Powder 15gm Bottle 1 APPLIC TOPICAL ×2 (07:01→21:58)
[2019-07-22] MEDS: Menthol/Lanolin/Calamine/Znox 113 GM Tube 1 APPLIC TOPICAL ×2 (07:01→21:57)
[2019-07-22] MEDS: Acyclovir 800 MG Tablet PO ×5 (07:02→21:56)
[2019-07-22] MEDS: Senna/Docusate Sodium 1 Tablet 2 TABLET PO (07:03)
[2019-07-22] MEDS: Aspirin 81 MG TAB.CHEW PO (08:07)
[2019-07-22] MEDS: Iron Polysaccharide Complex 150 MG CAPSULE PO (08:08)
[2019-07-22] MEDS: Folic Acid 1 MG Tablet PO (08:08)
[2019-07-22 13:08] VITALS: O2SAT 96
[2019-07-22 16:00] VITALS: BP 131/70; PULSE 85; RESP 18; TEMP 36.2; O2SAT 100
[2019-07-22 17:44] VITALS: BP 131/70; PULSE 85
[2019-07-22 21:36] VITALS: PULSE 113; RESP 18; O2SAT 99
[2019-07-22] MEDS: Atorvastatin Calcium 40 MG Tablet PO (21:56)
[2019-07-23] VITALS (7 sets, daily range): BP systolic 122–176; BP diastolic 67–88; PULSE 75–95; RESP 17–18; TEMP 36.6; O2SAT 93–98
[2019-07-23] MEDS: Cephalexin 500 MG Capsule PO ×2 (07:04→17:52)
[2019-07-23] MEDS: guaiFENesin 1,200 MG Tablet 1200 MG PO ×2 (07:04→17:52)
[2019-07-23] MEDS: Tamsulosin HCl 0.4 MG Capsule PO (07:05)
[2019-07-23] MEDS: Senna/Docusate Sodium 1 Tablet 2 TABLET PO ×2 (07:05→17:52)
[2019-07-23] MEDS: Doxycycline 100 MG CAPSULE PO ×2 (07:05→17:52)
[2019-07-23] MEDS: Acyclovir 800 MG Tablet PO ×5 (07:06→21:48)
[2019-07-23] MEDS: Amiodarone 200 MG Tablet PO (07:06)
[2019-07-23] MEDS: Polyethylene Glycol 3350 17 GM PACKET PO (07:06)
[2019-07-23] MEDS: Metoprolol Tartrate 25 MG Tablet PO ×4 (07:10→21:55)
[2019-07-23] MEDS: Menthol/Lanolin/Calamine/Znox 113 GM Tube 1 APPLIC TOPICAL ×2 (07:11→21:56)
[2019-07-23] MEDS: Nystatin Powder 15gm Bottle 1 APPLIC TOPICAL ×2 (07:11→21:56)
--- NOTE | 2019-07-23 07:20 | NURSING ---
Pt remains in contact precautions for shingles all care provided in pt room.
[2019-07-23] MEDS: Aspirin 81 MG TAB.CHEW PO (09:01)
[2019-07-23] MEDS: Folic Acid 1 MG Tablet PO (09:01)
[2019-07-23] MEDS: Iron Polysaccharide Complex 150 MG CAPSULE PO (09:01)
--- NOTE | 2019-07-23 17:06 | NURSING ---
Addendum entered by Cori Silverman 07/23/19 17:11: Dr. Khan also made aware of order changes and new orders. Original Note: Patient's apical HR irregular, HR 132. Dr. Swenson, monument setter helper for Dr. Navarro, made aware, new order to increase lopressor to 25mg PO TID, hold for pulse >65 or systolic BP >105. Give x1 extra dose of lopressor 25mg PO x1 now, not to replace any scheduled doses and x1 dose of amiodarone 400mg PO x1 now, not to replace any scheduled doses. Patient and family made aware.
[2019-07-23] MEDS: Amiodarone 200 MG Tablet 400 MG PO (17:52)
[2019-07-23] MEDS: traMADol 50 MG Tablet PO (21:43)
[2019-07-23] MEDS: Atorvastatin Calcium 40 MG Tablet PO (21:55)
[2019-07-24] VITALS (8 sets, daily range): BP systolic 129–156; BP diastolic 67–102; PULSE 68–94; RESP 16–18; TEMP 36.8; O2SAT 97–99
[2019-07-24] MEDS: oxyCODONE 5 MG Tablet 2.5 MG PO ×3 (02:40→21:03)
[2019-07-24] MEDS: Acyclovir 800 MG Tablet PO ×5 (06:14→21:04)
[2019-07-24] MEDS: Doxycycline 100 MG CAPSULE PO ×2 (06:14→18:26)
[2019-07-24] MEDS: Polyethylene Glycol 3350 17 GM PACKET PO (06:14)
[2019-07-24] MEDS: Amiodarone 200 MG Tablet PO (06:15)
[2019-07-24] MEDS: Senna/Docusate Sodium 1 Tablet 2 TABLET PO ×2 (06:15→18:27)
[2019-07-24] MEDS: guaiFENesin 1,200 MG Tablet 1200 MG PO ×2 (06:15→18:26)
[2019-07-24] MEDS: Tamsulosin HCl 0.4 MG Capsule PO (06:15)
[2019-07-24] MEDS: Cephalexin 500 MG Capsule PO ×2 (06:15→18:26)
[2019-07-24] MEDS: Menthol/Lanolin/Calamine/Znox 113 GM Tube 1 APPLIC TOPICAL ×2 (06:23→21:05)
[2019-07-24] MEDS: Nystatin Powder 15gm Bottle 1 APPLIC TOPICAL ×2 (06:23→21:04)
[2019-07-24] MEDS: Metoprolol Tartrate 25 MG Tablet PO ×3 (06:41→21:08)
[2019-07-24] MEDS: Albuterol 2.5 MG/3 ML VIAL.NEB. INHALATION (07:30)
[2019-07-24] MEDS: Aspirin 81 MG TAB.CHEW PO (08:16)
[2019-07-24] MEDS: Iron Polysaccharide Complex 150 MG CAPSULE PO (08:17)
[2019-07-24] MEDS: Folic Acid 1 MG Tablet PO (08:17)
[2019-07-24] MEDS: traMADol 50 MG Tablet PO (09:45)
[2019-07-24] MEDS: Benzonatate 100 MG Capsule PO (21:04)
[2019-07-24] MEDS: Atorvastatin Calcium 40 MG Tablet PO (21:05)
[2019-07-25] MEDS: Senna/Docusate Sodium 1 Tablet 2 TABLET PO (05:31)
[2019-07-25] MEDS: Menthol/Lanolin/Calamine/Znox 113 GM Tube 1 APPLIC TOPICAL ×2 (05:31→22:19)
[2019-07-25] MEDS: guaiFENesin 1,200 MG Tablet 1200 MG PO ×2 (05:31→17:34)
[2019-07-25] MEDS: Polyethylene Glycol 3350 17 GM PACKET PO (05:31)
[2019-07-25] MEDS: Amiodarone 200 MG Tablet PO (05:32)
[2019-07-25] MEDS: Cephalexin 500 MG Capsule PO ×2 (05:32→17:34)
[2019-07-25] MEDS: Acyclovir 800 MG Tablet PO ×4 (05:32→17:34)
[2019-07-25] MEDS: Doxycycline 100 MG CAPSULE PO ×2 (05:32→17:34)
[2019-07-25] MEDS: Tamsulosin HCl 0.4 MG Capsule PO (05:32)
[2019-07-25] MEDS: Nystatin Powder 15gm Bottle 1 APPLIC TOPICAL ×2 (05:33→22:18)
[2019-07-25 05:45] VITALS: BP 160/80; PULSE 74
[2019-07-25] MEDS: Metoprolol Tartrate 25 MG Tablet PO ×3 (05:45→22:22)
[2019-07-25] MEDS: traMADol 50 MG Tablet PO (05:51)
[2019-07-25 06:35] VITALS: O2SAT 95
[2019-07-25 07:00] VITALS: PULSE 70; RESP 16; O2SAT 98
[2019-07-25] MEDS: Iron Polysaccharide Complex 150 MG CAPSULE PO (08:22)
[2019-07-25] MEDS: Aspirin 81 MG TAB.CHEW PO (08:22)
[2019-07-25] MEDS: Folic Acid 1 MG Tablet PO (08:22)
[2019-07-25 13:39] VITALS: PULSE 68
[2019-07-25 15:32] VITALS: BP 144/87; PULSE 83; RESP 18; TEMP 36.7; O2SAT 100
[2019-07-25] MEDS: Atorvastatin Calcium 40 MG Tablet PO (21:52)
[2019-07-25] MEDS: Benzonatate 100 MG Capsule PO (22:13)
[2019-07-25] MEDS: oxyCODONE 5 MG Tablet 2.5 MG PO (22:16)
[2019-07-25 22:22] VITALS: BP 159/98; PULSE 95
[2019-07-26] VITALS (9 sets, daily range): BP systolic 132–176; BP diastolic 80–104; PULSE 78–109; RESP 18–20; TEMP 36.9; O2SAT 97–100
[2019-07-26] MEDS: guaiFENesin 1,200 MG Tablet 1200 MG PO ×2 (06:16→17:40)
[2019-07-26] MEDS: Benzonatate 100 MG Capsule PO ×3 (06:16→20:36)
[2019-07-26] MEDS: Amiodarone 200 MG Tablet PO (06:16)
[2019-07-26] MEDS: Senna/Docusate Sodium 1 Tablet 2 TABLET PO (06:17)
[2019-07-26] MEDS: Tamsulosin HCl 0.4 MG Capsule PO (06:19)
[2019-07-26] MEDS: Menthol/Lanolin/Calamine/Znox 113 GM Tube 1 APPLIC TOPICAL ×2 (06:23→21:13)
[2019-07-26] MEDS: Nystatin Powder 15gm Bottle 1 APPLIC TOPICAL ×2 (06:25→21:13)
[2019-07-26] MEDS: Metoprolol Tartrate 25 MG Tablet PO ×3 (06:28→21:15)
[2019-07-26] MEDS: Polyethylene Glycol 3350 17 GM PACKET PO (06:33)
[2019-07-26] MEDS: Folic Acid 1 MG Tablet PO (08:28)
[2019-07-26] MEDS: Iron Polysaccharide Complex 150 MG CAPSULE PO (08:29)
[2019-07-26] MEDS: Aspirin 81 MG TAB.CHEW PO (08:29)
[2019-07-26] MEDS: oxyCODONE 5 MG Tablet 2.5 MG PO ×2 (08:32→22:04)
--- NOTE | 2019-07-26 10:50 | MDS.RN ---
Information for the mds was obtained from review of the clinical record, interview of resident, staff, and direct observation of resident's care.
--- NOTE | 2019-07-26 15:37 | NURSING ---
ALL CARE GIVEN IN ROOM DUE TO PT IN PRECAUTIONS FOR SHINGLES.
--- NOTE | 2019-07-26 17:09 | NURSING ---
DC CONTACT PRECAUTIONS, PT FINISHED WITH ATB, NECK DRY HEALING.
[2019-07-26] MEDS: traMADol 50 MG Tablet PO (20:36)
[2019-07-26] MEDS: Atorvastatin Calcium 40 MG Tablet PO (20:36)
--- NOTE | 2019-07-26 22:05 | NURSING ---
2040 pt noted to be sitting on the edge of the bed cough very and had sob. o2 on at 2l/m via n/c intact. pt reports that his chest hurts from coughing rating a 7/10 on pain scale. pt stated that he is sob with little exertion. ap is noted to be tachy at 109 and bp is 161/104. pt given tessalon perle for cough and ultram for pain. pt has fine crackles scattered through post dash, cough is harsh and pt states that he is bringing up a thick white mucus along with some yellow mucus at times . pt is noted to have 2+ pitting edema to feet and ble. rn made aware of pt edema and vs. 2199 staff to reasses pt vs and breathing, bp is 165/125 and ap is 126 at rest. o2 remains in place and pt reports that is is pain has not improved and oxyir was given at this time. pt stated that he feels awful and was positioned in recliner for comfort and help with breathing. cough . noted to improve but still is noted to have congestion. rn made aware of current bp
--- NOTE | 2019-07-26 22:26 | EKG12_ITS ---
Test Reason : INCREASED HR Blood Pressure : / mmHG Vent. Rate : 098 BPM Atrial Rate : 102 BPM P-R Int : 000 ms QRS Dur : 166 ms QT Int : 376 ms P-R-T Axes : 000 -43 133 degrees QTc Int : 480 ms A-fib with CVR Left bundle branch block Abnormal ECG Confirmed by GERALD ANN ([id number]), editor at large ALFREDO CARTER ([id number]) on 07/28/2019 2:10:59 PM Referred By: Husam Khan Confirmed By:GERALD ANN
--- NOTE | 2019-07-26 22:26 | NURSING ---
rn to call the doctor and new orders received for lopressor and ekg to be done. a recheck of spo2 was 96% on 2l/m with heart rate upper 90's to low 100's .
[2019-07-26] MEDS: Metoprolol Tartrate 25 MG Tablet 50 MG PO (22:44)
--- NOTE | 2019-07-26 22:47 | NURSING ---
ekg completed and 50mg of lopressor x's 1 given as per order. pt current bp is ap 102 and bp is 153/102. will continue to monitor pt
[2019-07-27] VITALS (7 sets, daily range): BP systolic 150–168; BP diastolic 81–109; PULSE 68–82; RESP 18–20; TEMP 36.6; O2SAT 98–100
--- NOTE | 2019-07-27 00:48 | NURSING ---
staff to check on pt and was resting quietly in the chair. bp was 138/77 with ap 84 and sp02 at 97% on 2l/m via n/c. pt reports feeling better at this time with pain level a 5 /10 on pain scale. pt remains in recliner for comfort.
[2019-07-27] MEDS: Amiodarone 200 MG Tablet PO (05:18)
[2019-07-27] MEDS: Tamsulosin HCl 0.4 MG Capsule PO (05:18)
[2019-07-27] MEDS: Metoprolol Tartrate 25 MG Tablet 50 MG PO ×2 (05:19→18:29)
[2019-07-27] MEDS: guaiFENesin 1,200 MG Tablet 1200 MG PO ×2 (05:21→18:29)
[2019-07-27] MEDS: Menthol/Lanolin/Calamine/Znox 113 GM Tube 1 APPLIC TOPICAL ×2 (05:22→21:18)
[2019-07-27] MEDS: Nystatin Powder 15gm Bottle 1 APPLIC TOPICAL (05:22)
[2019-07-27] MEDS: oxyCODONE 5 MG Tablet 2.5 MG PO (05:22)
[2019-07-27 06:06] LABS: Hematocrit 28.5 % (40-54); Hemoglobin 8.5 g/dL (13.0-16.5)
[2019-07-27] MEDS: Aspirin 81 MG TAB.CHEW PO (08:17)
[2019-07-27] MEDS: Iron Polysaccharide Complex 150 MG CAPSULE PO (08:17)
[2019-07-27] MEDS: Folic Acid 1 MG Tablet PO (08:17)
[2019-07-27] MEDS: oxyCODONE 5 MG Tablet PO (11:52)
[2019-07-27] MEDS: Benzonatate 100 MG Capsule PO (14:11)
--- NOTE | 2019-07-27 14:35 | NURSING ---
PT COLOR WAS A LITTLE GA,VITALS DONE. LUNGS DIMINISHED, OXYGEN 98% ON 2L. LEFT LOWER LEG +3 NONPITTING,RIGHT LEG +2 NONPITTING. THERAPY ALSO STATED PT WAS WEAKER TODAY. PT STATED LEFT CALF WOULD HURT IF I TOUCHED IT. REPORTED TO SHARIF BAUMAN
--- NOTE | 2019-07-27 17:45 | RAD_ITS ---
STUDY: X-RAY CHEST REASON FOR EXAM: Male, 79 years old. Open-heart surgery TECHNIQUE: Frontal and lateral views of the chest. COMPARISON: 07/15/2019 FINDINGS: Median sternotomy wires. Atrial clip. Mild elevation of the left hemidiaphragm. Left basilar alveolar disease. Left pleural effusion. Stable cardiomediastinal silhouette. Normal mediastinum and rafael. Normal visualized pulmonary arteries. Normal visualized aortic arch and descending thoracic aorta. There are diffuse degenerative changes of the visualized thoracic spine. Remote left rib trauma. There is no demonstrated abnormality of the visualized soft tissue structures of the upper abdomen. RAD/Chest PA and Lateral IMPRESSION: Left basilar alveolar disease. Left pleural effusion. Electronically Signed: Jersey Fleming MD at 19:27 EDT Tel , Service support ,
[2019-07-27] MEDS: Senna/Docusate Sodium 1 Tablet 2 TABLET PO (18:29)
[2019-07-27 19:04] LABS: CPK Total, Creatine Kinase 42 U/L (39-308)
[2019-07-27 19:11] LABS: BNP,B-Type NATRIURETIC PEPTIDE 445.4 pg/mL (0-100)
--- NOTE | 2019-07-27 20:06 | PCM.TCUNOT ---
Subjective: Resident seen today, sitting in chair, he complaints of shortness of breath with exertion, cough, edema, chest ache. He has not been doing well with therapy due to the hypoxia, his cough is dry, unable to cough anything up, he has had the cough since his bypass surgery. Vitals/I&O's: Vital Signs Temp Pulse Resp BP Pulse Ox 97.9 F 78 20 H 168/91 H 100 07/27/19 15:33 07/27/19 18:29 07/27/19 15:33 07/27/19 18:29 07/27/19 15:33 Oxygen Flow Rate (L/min) 2 Oxygen Delivery Method Nasal Cannula Weight: 93.531 kg Body Mass Index (BMI) 28.8 Intake and Output for Last 24 Hours 07/25/19 07/26/19 07/27/19 23:59 23:59 23:59 Intake Total 840 / 840 1040 / 1040 950 / 950 Output Total 600 / 600 1800 / 1800 520 / 520 Balance 240 / 240 -760 / -760 430 / 430 Laboratory Results 07/27/19 05:08: Hgb 8.5 L, Hct 28.5 L 07/27/19 18:33: Troponin I 0.016 07/27/19 18:33: B-Natriuretic Peptide 445.4 H 07/27/19 18:33: Total Creatine Kinase 42 07/27/19 18:33: Myoglobin Pending Past Medical History Past Medical History (Chronic Problems): Chronic Problems (Last Updated 03/02/19 @ 14:34 by Geno Chapa) Coronary artery disease (Chronic) Hypertension (Chronic) BPH (benign prostatic hyperplasia) (Chronic) Allergic rhinitis (Chronic) Vitamin D deficiency (Chronic) History of right and left heart catheterization (Chronic 03/02/19) Aortic Valve Area: 1.11 Aortic Valve Index: 0.54 Aortic Valve Mean Gradient: 40.4; Mitral Valve Area: 1.24 Mitral Valve index: 0.6 Mitral Valve Mean Gradient: 14.2; Right Heart pressures - elevated; LEFT MAIN: Angiographically normal; LEFT ANTERIOR DECENDING ARTERY: Mild luminal irregularities less than 30%; CIRCUMFLEX ARTERY: Mild luminal irregularities less than 30%; RIGHT CORONARY ARTERY: Mild luminal irregularities less than 30% VALVE FINDINGS: Aortic Valve Stenosis - severe per R&LHC 03/02/19 per [facility] @ [facility] Aortic stenosis (Chronic) Severe per echo 12/06/2018 @ [facility] Mitral valve annular calcification (Chronic) Mild per echo 12/06/18 done @ [facility] by Dr. José Miguel Gutierrez. No regurgitation. Nonrheumatic aortic (valve) stenosis (Chronic) Per echo 12/06/[address] José Miguel Gutierrez at [facility]: Moderate to severely calcified annulus, trileaflet, moderately calcified leaflets. Severe stenosis,no regurgitation. Mean gradient 44mmhg, Valve area 0.6 cm2. Incidentally, EF 68 % per echo. Left bundle branch block (Chronic) Anemia (Chronic) Hgb 9.7 on 01/20/19, ord by Dr. Howell (PCP) Hyperlipidemia (Chronic) Essential (primary) hypertension (Chronic) Umbilical hernia, incarcerated (Chronic 12/04/18) [facility] Medical History: Medical History (Last Reviewed 02/14/19 @ 15:15 by Daria Meza) Iron deficiency anemia (Acute) D50.9 Aortic stenosis (Chronic) I35.0 Severe per echo 12/06/2018 @ [facility] Bowel obstruction (Acute) K56.609 Repaired at [facility] 12/04/18 Mitral valve annular calcification (Chronic) I05.9 Mild per echo 12/06/18 done @ [facility] by Dr. José Miguel Gutierrez. No regurgitation. Atrial fibrillation with rapid ventricular response (Acute) I48.91 Acute metabolic encephalopathy (Acute) G93.41 Acute kidney injury (Acute) N17.9 Nonrheumatic aortic (valve) stenosis (Chronic) I35.0 Per echo 12/06/[address] José Miguel Gutierrez at [facility]: Moderate to severely calcified annulus, trileaflet, moderately calcified leaflets. Severe stenosis,no regurgitation. Mean gradient 44mmhg, Valve area 0.6 cm2. Incidentally, EF 68 % per echo. Prolonged QT interval (Acute) R94.31 Left bundle branch block (Chronic) I44.7 Anemia (Chronic) D64.9 Hgb 9.7 on 01/20/19, ord by Dr. Howell (PCP) Hyperlipidemia (Chronic) E78.5 Essential (primary) hypertension (Chronic) I10 Declining functional status R53.81 Cognitive deficits R41.89 Vitamin D deficiency E55.9 Allergies No Known Allergies Allergy (Verified 02/22/19 09:01) Home Medications: Ambulatory Orders Medication Instructions Recorded cholecalciferol (vitamin D3) 5,000 5,000 unit PO DAILY 02/01/19 unit capsule Polyethylene Glycol 3350 [Miralax] 17 gm PO DAILY PRN 02/18/19 Ferrous Sulfate 325 mg PO DAILY 03/01/19 Fluticasone 0.05% [Flonase Nasal 1 spray NASAL DAILY PRN 03/01/19 [place]] Acetaminophen [Tylenol] 325 mg PO Q4H PRN PRN 07/13/19 Albuterol Aerosols [Ventolin 3 ml INHALATION Q4H PRN PRN 07/13/19 Aerosols] Amiodarone HCl [Pacerone] 200 mg PO BID 07/13/19 Ascorbic Acid [Vitamin C] 500 mg PO DAILY 07/13/19 Aspirin [Aspirin, Baby] 162 mg PO DAILY 07/13/19 Atorvastatin Calcium [Lipitor] 40 mg PO QHS 07/13/19 Bisacodyl [Dulcolax] 10 mg RECTAL DAILY PRN PRN 07/13/19 Folic Acid 1 mg PO DAILY 07/13/19 Furosemide [Lasix] 40 mg PO DAILY 07/13/19 Lactobacillus Acidophilus 1 cap PO BID 07/13/19 [Acidophilus Lactobacilli] Metoprolol Tartrate 75 mg PO Q8H 07/13/19 Potassium Chloride [Klor-Con M20] 20 meq PO DAILY 07/13/19 Sennosides/Docusate Sodium 1 tab PO DAILY PRN PRN 07/13/19 [Senna-S Tablet] Tamsulosin HCl [Flomax] 0.4 mg PO DAILY 07/13/19 Surgical History: Surgical History (Last Updated 03/02/19 @ 14:34 by Geno Chapa) History of right and left heart catheterization (Chronic) Onset Date: 03/02/19 Z98.890 Aortic Valve Area: 1.11 Aortic Valve Index: 0.54 Aortic Valve Mean Gradient: 40.4; Mitral Valve Area: 1.24 Mitral Valve index: 0.6 Mitral Valve Mean Gradient: 14.2; Right Heart pressures - elevated; LEFT MAIN: Angiographically normal; LEFT ANTERIOR DECENDING ARTERY: Mild luminal irregularities less than 30%; CIRCUMFLEX ARTERY: Mild luminal irregularities less than 30%; RIGHT CORONARY ARTERY: Mild luminal irregularities less than 30% VALVE FINDINGS: Aortic Valve Stenosis - severe per R&LHC 03/02/19 per [facility] @ [facility] Umbilical hernia, incarcerated (Chronic) Onset Date: 12/04/18 K42.0 [facility] S/P partial colectomy Z90.49 Surgical History: herniorrhaphy - Umbilical hernia repair. Psychiatric History: No pertinent psych hx Lives: With Family - Lives with sister. Smoking Status: Former smoker Tobacco Use: Non-smoker Alcohol: Occasional Drugs: None - *Family History Maternal Family History: Family History (Last Reviewed 02/14/19 @ 15:16 by Daria Meza) Father Cancer Sister Cancer History Items: No pertinent history Paternal Family History: Family History (Last Reviewed 02/14/19 @ 15:16 by Daria Meza) Father Cancer Sister Cancer History Items: No pertinent history Capacity - Capacity Assessment Tool Can the patient make a choice & communicate that choice?: Yes Can the patient understand benefits, risks and alternatives?: Yes Can the patient make a logical, rational choice?: Yes Is the choice the patient makes consistent w/ their values?: Yes Is there an impending, emergent risk to the patient?: Yes Does the patient have an Advance Directive?: No Is there a Surrogate Available?: No i.e. HCPOA: No i.e. close relative (spouse, child, parent, sibling)?: No Review of Systems Constitutional: Denies: Chills, Fever, Weight Change HEENT: Denies: Head Aches, Sinus Congestion, Sinus Drainage Cardiovascular: Denies: Chest Pain, Palpitations Respiratory: Reports: Cough, Shortness of breath at rest, Shortness of breath upon exertion. Denies: Sputum production Gastrointestinal: Denies: Abdominal Pain, Nausea, Vomiting Genitourinary: Denies: Dysuria Musculoskeletal: Denies: Joint Pain, Joint Tenderness Skin: Denies: Rash, Wounds Neurological: Denies: Numbness, Tingling, Focal weakness Psychiatric: Denies: Anxiety, Depression, Homicidal Ideations, Suicidal Ideations Hematologic/ Lymphatic: Denies: Easy Bruising, Easy Bleeding Patient Problems: Active and Suspected Problems (Last Reviewed 02/14/19 @ 15:15 by Daria Meza) Debility (Acute) Hematuria (Acute) - Physical Exam General: Alert, Oriented x3, Cooperative HEENT: Atraumatic, PERRLA, EOMI, Normocephalic Neck: Supple, No JVD, Negative Carotid Bruits Lungs: Normal air movement, Rales - Left base. Cardiovascular: Regular rate, No murmurs Abdomen: Bowel Sounds Present, Soft, Non Tender Extremities: Capillary Refill Less than 3 Seconds, Edema - 2+ pitting edema. Skin: No rashes, No breakdown Musculoskeletal: No Tenderness to Palpation of Joints or Extremities Neurological: Cranial nerves II-XII grossly intact Psych/Mental Status: Normal Affect, Appropriate Vital Signs Temp Pulse Resp BP Pulse Ox 97.9 F 78 20 H 168/91 H 100 07/27/19 15:33 07/27/19 18:29 07/27/19 15:33 07/27/19 18:29 07/27/19 15:33 Oxygen Flow Rate (L/min) 2 Oxygen Delivery Method Nasal Cannula Weight: 93.531 kg Body Mass Index (BMI) 28.8 Intake and Output for Last 24 Hours 07/25/19 07/26/19 07/27/19 23:59 23:59 23:59 Intake Total 840 / 840 1040 / 1040 950 / 950 Output Total 600 / 600 1800 / 1800 520 / 520 Balance 240 / 240 -760 / -760 430 / 430 Laboratory Tests Past 24 Hrs 07/27/19 07/27/19 07/27/19 05:08 18:33 18:33 Hgb 8.5 L Hct 28.5 L Total Creatine Kinase Myoglobin Troponin I 0.016 B-Natriuretic Peptide 445.4 H 07/27/19 07/27/19 18:33 18:33 Hgb Hct Total Creatine Kinase 42 Myoglobin Pending Troponin I B-Natriuretic Peptide Assessment/Plan All Active Problems (Last Reviewed 02/14/19 @ 15:15 by Daria Meza) Debility (Acute) Hematuria (Acute) Iron deficiency anemia (Acute) Bowel obstruction (Acute) Atrial fibrillation with rapid ventricular response (Acute) Acute metabolic encephalopathy (Acute) Acute kidney injury (Acute) Prolonged QT interval (Acute) 79 year old male with below past medical history hospitalized for CABG x 2 07/04/[address] Jackson, post-operative course complicated by acute respiratory failure, hematuria, atrial fibrillation with rapid ventricular response, acute delirium, admitted to TCU with debility, here for rehabilitation, strengthening, prior to discharge home alone. Debility - PT/OT. Pain - Tylenol 1000MG Q6H PRN mild pain, Oxycodone 5MG Q4H PRN severe pain. Bowel - Miralax 17GM daily, Senna/colace 2 tablets BID, DVT prophylaxis - Lovenox stopped due to anemia. Healthcare associated pneumonia - Left lower lobe, seen on chest X-ray, Cefepime 2GM IV Q12H x 7 days, Vancomycin pharmacy to dose x 7 days, MRSA nasal swab. Add Medrol dose pack, Duoneb Q6HRT, VEST therapy q shift. Cough - Robitussin DM 10ML PO Q4H PRN cough. Edema - BNP 445.4, weight decreased from 96.5KG to 93.531KG, recommend VANESSA wraps to bilateral lower extremities. Chest pain - EKG showed possible lateral ischemia, Troponin negative. Anemia - H&H holding at 8.5, Lovenox discontinued, Ferrex 150MG daily. Atrial Fibrillation - Metoprolol 50MG BID, Amiodarone 200MG daily, Aspirin 81MG daily, no intermediate anticoagulation necessary. Hyperlipidemia - Atorvastatin 40MG QHS. Skin irritation - Calmoseptine BID. BPH - Tamsulosin 0.4MG daily.
[2019-07-27 20:48] LABS: Anion Gap 7 (5-15); BUN 12 mg/dL (7-18); BUN/Creat Ratio 8.8 RATIO (10-20); Calcium,Total 8.4 mg/dL (8.5-10.1); Chloride 103 mmol/L (98-107); Creatinine, Serum 1.36 mg/dL (0.70-1.30); EST Glomerular Filtration Rate 53 mL/min (>60); Est Glom Filt Rate - Afr Amer 65 mL/min (>60); Estimated Creatinine Clearance 46.76 ml/min; Glucose 131 mg/dL (74-106); Sodium Level 140 mmol/L (136-145)
[2019-07-27] MEDS: Atorvastatin Calcium 40 MG Tablet PO (21:20)
[2019-07-27] MEDS: guaiFENesin Dm 10 ML UDC PO (21:21)
[2019-07-27] MEDS: MethylPREDNISolone DosePak 4 MG BOX PO (21:22)
[2019-07-27] MEDS: 0.9% NaCl IVPB Med Flush (250 mL) 15 ML IV (21:24)
[2019-07-27 22:47] LABS: M R Staph aureus DNA By PCR Negative (Negative); Probe Check PASS; Specimen Processing Control PASS
--- NOTE | 2019-07-28 00:16 | PCM.RX.CS ---
Consult Pharmacy has been consulted to manage selected antiobiotic: Vancomycin Type of Consult: New start Suspected Infection: Pneumonia Prior Doses of Antibiotics Received/Current Regimen: Medications Vancomycin HCl 1,250 mg/ (Sodium Chloride) 275 mls @ 167 mls/hr IV Q24H [place] Discontinued Medications Vancomycin HCl 2,000 mg/ (Sodium Chloride) 540 mls @ 250 mls/hr IV X1 ONE Stop: 07/27/19 23:09 Last Admin: 07/27/19 22:07 Dose: 250 mls/hr Labs: Sodium 140 mmol/L (136-145) 07/27/19 18:33 Potassium 4.0 mmol/L (3.5-5.1) 07/27/19 18:33 Chloride 103 mmol/L (98-107) 07/27/19 18:33 Carbon Dioxide 30.0 mmol/L (21.0-32.0) 07/27/19 18:33 7 (5-15) 07/27/19 18:33 BUN 12 mg/dL (7-18) 07/27/19 18:33 1.36 mg/dL (0.70-1.30) H 07/27/19 18:33 Est GFR (MDRD) Af Amer 65 mL/min (>60) 07/27/19 18:33 Est GFR (MDRD) Non-Af 53 mL/min (>60) L 07/27/19 18:33 8.8 RATIO (10-20) L 07/27/19 18:33 Glucose 131 mg/dL (74-106) H 07/27/19 18:33 Microbiology: Microbiology 07/21/19 14:30 Stool Stool Occult Blood (RYLAN) - Final Occult Blood Positive Weight used for dosin.5 kg Estimated Creatinine Clearance: 47 Goal Trough: 10-15 mcg/mL Pharmacy Plan for Drug Dosing: Pharmacy Service will continue to monitor and adjust dosing as required. Follow-Up Labs: Trough Vancomycin Labs to be done on [date and time ordered]: 07/29/19 @2751
[2019-07-28 05:59] LABS: Absolute Neutrophil Count 2.6 X10^3/uL (2.0-7.7); Basophil# 0.01 X10^3/uL; Basophil% 0.3 % (0-1); Hematocrit 29.6 % (40-54); Hemoglobin 8.9 g/dL (13.0-16.5); Lymphocyte % 15.6 % (19-41); Mean Corp Hgb Conc 30.1 g/dL (32-36); Mean Corpuscular Hgb 28.3 pg (27.0-32.0); Mean Platelet Vol. 9.6 fl (6.2-12.0); Monocyte# 0.08 X10^3/uL; Monocyte% 2.5 % (0-10); NRBC Flagged by Analyzer 0 % (0-5); Neutrophil # 2.59 X10^3/uL (2.7-7.7); Neutrophil % 80.7 % (47-70); POSITIVE DIFFERENTIAL YES; Platelet Count 174 K/mm3 (150-450); RBC Distribution Width CV 13.8 % (11.6-14.6); RBC Distribution Width SD 46.7 fl (35.1-43.9); Red Blood Count 3.15 M/mm3 (4.6-6.2); White Blood Count 3.2 K/mm3 (4.4-11.0)
[2019-07-28 06:01] LABS: Differential Indicated SCAN CRITERIA MET
[2019-07-28] MEDS: Tamsulosin HCl 0.4 MG Capsule PO (06:10)
[2019-07-28] MEDS: Senna/Docusate Sodium 1 Tablet 2 TABLET PO (06:10)
[2019-07-28] MEDS: Amiodarone 200 MG Tablet PO (06:10)
[2019-07-28 06:11] VITALS: BP 145/89; PULSE 89
[2019-07-28] MEDS: Metoprolol Tartrate 50 MG Tablet PO ×2 (06:11→21:48)
[2019-07-28 06:18] LABS: Anion Gap 7 (5-15); BUN 12 mg/dL (7-18); BUN/Creat Ratio 9.4 RATIO (10-20); Calcium,Total 8.4 mg/dL (8.5-10.1); Chloride 103 mmol/L (98-107); Creatinine, Serum 1.28 mg/dL (0.70-1.30); EST Glomerular Filtration Rate 57 mL/min (>60); Est Glom Filt Rate - Afr Amer 69 mL/min (>60); Estimated Creatinine Clearance 49.68 ml/min; Glucose 136 mg/dL (74-106); Potassium 4.3 mmol/L (3.5-5.1); Sodium Level 141 mmol/L (136-145)
[2019-07-28] MEDS: Menthol/Lanolin/Calamine/Znox 113 GM Tube 1 APPLIC TOPICAL ×2 (06:18→21:44)
[2019-07-28 06:46] LABS: Differential Comment SCANNED; Hypochromasia 2+; Ovalocyte RARE
[2019-07-28 07:03] VITALS: O2SAT 100
[2019-07-28] MEDS: Aspirin 81 MG TAB.CHEW PO (07:51)
[2019-07-28] MEDS: Iron Polysaccharide Complex 150 MG CAPSULE PO (07:51)
[2019-07-28] MEDS: MethylPREDNISolone DosePak 4 MG BOX PO ×4 (07:52→21:44)
--- NOTE | 2019-07-28 08:06 | CPS ---
Vest was ordered but patient had CABG 2+ weeks ago talked to nursing they are going to talk to the about it but I gave the PEP to [facility] instead.
[2019-07-28 10:00] VITALS: PULSE 82; O2SAT 98
[2019-07-28] MEDS: oxyCODONE 5 MG Tablet PO (11:39)
[2019-07-28 11:42] VITALS: BP 142/81; PULSE 82; RESP 18; TEMP 36.7; O2SAT 99
--- NOTE | 2019-07-28 12:12 | CASEMGMT ---
Social Work Spoke with patient about discharge plans. Patient is on IVs until 08/04 and feels comfortable discharging home 08/05. O[place] is new for pt. [place] [facility] [place]. Provided pt with list of C - pt chose [facility]. Referral made for PT/OT/SN. Plan: DC home to sister's 08/05 with [facility] PT/OT/SN. Jessica Fabian, [employer] MANAGER
[2019-07-28 12:45] LABS: Pathologist Review Reviewed
--- NOTE | 2019-07-28 13:41 | NURSING ---
Pt leaving floor at this time for appt with Dr. Navarro. Jeanne to transport. Sister to accompany. Gopal OLGUIN aware.
[2019-07-28 16:00] VITALS: BP 171/98; PULSE 75; RESP 16; TEMP 36.5; O2SAT 97
--- NOTE | 2019-07-28 19:08 | NURSING ---
Pt arrived back to facility at this time with sister present from cardiology appt. New orders per Dr. Navarro. Gopal OLGUIN aware.
--- NOTE | 2019-07-28 20:01 | PCM.DC ---
- Discharge Diagnoses Current Active Problems: Current Active and Chronic Problems (Last Reviewed 02/14/19 @ 15:15 by Daria Meza) Debility (Acute) Coronary artery disease (Chronic) Hypertension (Chronic) Hematuria (Acute) BPH (benign prostatic hyperplasia) (Chronic) Allergic rhinitis (Chronic) Vitamin D deficiency (Chronic) You will use the following diet at home:: No restrictions, Regular Your food should be the consistency of: Regular Your liquids should be the consistency of: Regular/Thin Discharge Activity: Return to Normal Activity, May Shower, Use Walker Weight Bearing Status: Weight bearing as tolerated Call your doctor if you observe: Fever of 101 or Higher, Inability to urinate, Inability to have a bowel movement, Shortness of breath, Chest pain, Uncontrolled pain Allergies/Adverse Reactions: Allergies No Known Allergies Allergy (Verified 02/22/19 09:01) Medications to take at Discharge Polyethylene Glycol 3350 [Miralax] 17 gm PO DAILY PRN 02/18/19 Aspirin [Aspirin, Baby] 162 mg PO DAILY 07/13/19 Acetaminophen [Tylenol] 1,000 mg PO Q6H PRN PRN tablet 07/28/19 Amiodarone HCl [Cordarone] 200 mg PO DAILY #30 tab 07/28/19 Atorvastatin Calcium [Lipitor] 40 mg PO QHS #30 tab 07/28/19 Benzonatate [Tessalon Perle] 100 mg PO TID PRN PRN #90 cap 07/28/19 Guaifenesin Dm [Robitussin Dm] 10 ml PO Q4H PRN udc 07/28/19 Iron Polysaccharide Complex [Ferrex 150] 150 mg PO DAILYCM #30 cap 07/28/19 Menthol/Lanolin/Calamine/Znox [Calmoseptine Ointment] 1 applic TOPICAL 0600,2200 tube 07/28/19 Metoprolol Tartrate [Lopressor (beta leyda)] 50 mg PO Q8 #90 tab 07/28/19 Oxycodone [Oxyir] 5 mg PO Q4H PRN PRN 7 Days #30 tab 07/28/19 Tamsulosin HCl [Flomax] 0.4 mg PO DAILY #30 cap 07/28/19 The following prescriptions were given: Amiodarone HCl [Cordarone] 200 mg PO DAILY #30 tab Transmission Status: Pending to [facility]30 Iron Polysaccharide Complex [Ferrex 150] 150 mg PO DAILYCM #30 cap Transmission Status: Pending to [facility] Tamsulosin HCl [Flomax] 0.4 mg PO DAILY #30 cap Transmission Status: Pending to [facility]30 Atorvastatin Calcium [Lipitor] 40 mg PO QHS #30 tab Transmission Status: Pending to [facility]30 Metoprolol Tartrate [Lopressor (beta leyda)] 50 mg PO Q8 #90 tab Transmission Status: Pending to [facility] Oxycodone [Oxyir] 5 mg PO Q4H PRN PRN 7 Days #30 tab PRN Reason: Severe Pain (-09/01) Prescription Printed Benzonatate [Tessalon Perle] 100 mg PO TID PRN PRN #90 cap PRN Reason: COUGH Transmission Status: Pending to [facility] Primary Care Physician: Valdez Howell MD [Primary Care Provider] - Please follow up with your Primary Care Physician in: 1 week. Test Results: Test results from this visit will be discussed in further detail at your follow-up appointment, if applicable. Please Follow Up With: ([place] cariologist)Dr Melanie Sylvester When: [phone] Please Follow Up With: Saeed Dang NP (nnp) When: [phone] Proposed Discharge Date: 08/05/19
--- NOTE | 2019-07-28 20:03 | PCM.DC.SUM ---
Discharge Date and Diagnosis - Problem List Patient Problems: Active and Suspected Problems (Last Reviewed 02/14/19 @ 15:15 by Daria Meza) Debility (Acute) Hematuria (Acute) Date of Admission: 07/13/19 Date of Discharge: 08/05/19 - Primary Discharge Diagnosis Active and Suspected Problems (Last Reviewed 02/14/19 @ 15:15 by Daria Meza) Debility (Acute) Hematuria (Acute) - Secondary Discharge Diagnosis Chronic Problems (Last Updated 03/02/19 @ 14:34 by Geno Chapa) Coronary artery disease (Chronic) Hypertension (Chronic) BPH (benign prostatic hyperplasia) (Chronic) Allergic rhinitis (Chronic) Vitamin D deficiency (Chronic) History of right and left heart catheterization (Chronic 03/02/19) Aortic Valve Area: 1.11 Aortic Valve Index: 0.54 Aortic Valve Mean Gradient: 40.4; Mitral Valve Area: 1.24 Mitral Valve index: 0.6 Mitral Valve Mean Gradient: 14.2; Right Heart pressures - elevated; LEFT MAIN: Angiographically normal; LEFT ANTERIOR DECENDING ARTERY: Mild luminal irregularities less than 30%; CIRCUMFLEX ARTERY: Mild luminal irregularities less than 30%; RIGHT CORONARY ARTERY: Mild luminal irregularities less than 30% VALVE FINDINGS: Aortic Valve Stenosis - severe per R&LHC 03/02/19 per [facility]N @ [facility] Aortic stenosis (Chronic) Severe per echo 12/06/2018 @ [facility] Mitral valve annular calcification (Chronic) Mild per echo 12/06/18 done @ [facility] by Dr. José Miguel Gutierrez. No regurgitation. Nonrheumatic aortic (valve) stenosis (Chronic) Per echo 12/06/[address] José Miguel Gutierrez at [facility]: Moderate to severely calcified annulus, trileaflet, moderately calcified leaflets. Severe stenosis,no regurgitation. Mean gradient 44mmhg, Valve area 0.6 cm2. Incidentally, EF 68 % per echo. Left bundle branch block (Chronic) Anemia (Chronic) Hgb 9.7 on 01/20/19, ord by Dr. Howell (PCP) Hyperlipidemia (Chronic) Essential (primary) hypertension (Chronic) Umbilical hernia, incarcerated (Chronic 12/04/18) [facility] Course and Treatment Imaging Results: 07/14/19 12:05 Diet: Cardiac/Low Cholesterol Food consistency:: Regular Liquid Consistency:: Regular/Thin Dietary Modifications:: Fluid Restricted Diet Is pt able to select menu?: Yes Clinical Impression(s) from Imaging Studies Chest X-Ray 07/27/19 17:45 IMPRESSION: Left basilar alveolar disease. Left pleural effusion. Electronically Signed: Jersey Fleming MD at 19:27 EDT Tel , Service support , Labs (Last 48 Hours) 07/27/19 07/27/19 07/27/19 05:08 18:33 18:33 WBC RBC Hgb 8.5 L Hct 28.5 L MCV MCH MCHC RDW Std Deviation RDW Coeff of Genesis Plt Count MPV Immature Gran % (Auto) Neut % (Auto) Lymph % (Auto) Coleman % (Auto) Eos % (Auto) Baso % (Auto) Absolute Neuts (auto) Absolute Lymphs (auto) Nucleated RBC % Differential Comment Diff Path Review Hypochromasia Ovalocytes Sodium Potassium Chloride Carbon Dioxide Anion Gap BUN Creatinine Estim Creat Clear Calc Est GFR (MDRD) Af Amer Est GFR (MDRD) Non-Af BUN/Creatinine Ratio Glucose Calcium Total Creatine Kinase Myoglobin Troponin I 0.016 B-Natriuretic Peptide 445.4 H MRSA (PCR) 07/27/19 07/27/19 07/27/19 18:33 18:33 18:33 WBC RBC Hgb Hct MCV MCH MCHC RDW Std Deviation RDW Coeff of [employer] Plt Count MPV Immature Gran % (Auto) Neut % (Auto) Lymph % (Auto) Coleman % (Auto) Eos % (Auto) Baso % (Auto) Absolute Neuts (auto) Absolute Lymphs (auto) Nucleated RBC % Differential Comment Diff Path Review Hypochromasia Ovalocytes Sodium 140 Potassium 4.0 Chloride 103 Carbon Dioxide 30.0 Anion Gap 7 BUN 12 Creatinine 1.36 H Estim Creat Clear Calc 46.76 Est GFR (MDRD) Af Amer 65 Est GFR (MDRD) Non-Af 53 L BUN/Creatinine Ratio 8.8 L Glucose 131 H Calcium 8.4 L Total Creatine Kinase 42 Myoglobin Pending Troponin I B-Natriuretic Peptide MRSA (PCR) 07/27/19 07/28/19 07/28/19 20:50 05:10 05:10 WBC 3.2 L RBC 3.15 L Hgb 8.9 L Hct 29.6 L MCV 94.0 MCH 28.3 MCHC 30.1 L RDW Std Deviation 46.7 H RDW Coeff of Genesis 13.8 Plt Count 174 MPV 9.6 Immature Gran % (Auto) 0.900 Neut % (Auto) 80.7 H Lymph % (Auto) 15.6 L Coleman % (Auto) 2.5 Eos % (Auto) 0.0 Baso % (Auto) 0.3 Absolute Neuts (auto) 2.6 Absolute Lymphs (auto) 0.50 L Nucleated RBC % 0 Differential Comment SCANNED Diff Path Review Reviewed Hypochromasia 2+ Ovalocytes RARE Sodium 141 Potassium 4.3 Chloride 103 Carbon Dioxide 31.0 Anion Gap 7 BUN 12 Creatinine 1.28 Estim Creat Clear Calc 49.68 Est GFR (MDRD) Af Amer 69 Est GFR (MDRD) Non-Af 57 L BUN/Creatinine Ratio 9.4 L Glucose 136 H Calcium 8.4 L Total Creatine Kinase Myoglobin Troponin I B-Natriuretic Peptide MRSA (PCR) Negative Operations: None Procedures: None Summary of Care Provided: The patient is a 79 year old Male with below past medical history hospitalized for CABG x 2 07/04/[address] Jackson, post-operative course complicated by acute respiratory failure, hematuria, atrial fibrillation with rapid ventricular response, acute delirium, admitted to TCU with debility, here for rehabilitation, strengthening, prior to discharge home alone. 07/27/2019 Resident treated for left lower lobe healthcare associated pneumonia with 7 days IV Cefepime, IV Vancomycin, resident improved. Discharge home with sister, [facility] for PT/OT/SN. Patient Problems: Active and Suspected Problems (Last Reviewed 02/14/19 @ 15:15 by Daria Meza) Debility (Acute) Hematuria (Acute) - Physical Exam Vital Signs Temp Pulse Resp BP Pulse Ox 97.7 F L 75 16 171/98 H 97 07/28/19 16:00 07/28/19 16:00 07/28/19 16:00 07/28/19 16:00 07/28/19 16:00 Oxygen Flow Rate (L/min) 2 Oxygen Delivery Method Room Air Weight: 92.108 kg Body Mass Index (BMI) 28.8 Intake and Output for Last 24 Hours 07/26/19 07/27/19 07/28/19 23:59 23:59 23:59 Intake Total 1040 / 1040 1065 / 1065 1293.33 / 1293.33 Output Total 1800 / 1800 520 / 520 750 / 750 Balance -760 / -760 545 / 545 543.33 / 543.33 Laboratory Tests Past 24 Hrs 07/27/19 07/27/19 07/28/19 18:33 20:50 05:10 WBC 3.2 L RBC 3.15 L Hgb 8.9 L Hct 29.6 L MCV 94.0 MCH 28.3 MCHC 30.1 L RDW Std Deviation 46.7 H RDW Coeff of Genesis 13.8 Plt Count 174 MPV 9.6 Immature Gran % (Auto) 0.900 Neut % (Auto) 80.7 H Lymph % (Auto) 15.6 L Coleman % (Auto) 2.5 Eos % (Auto) 0.0 Baso % (Auto) 0.3 Absolute Neuts (auto) 2.6 Absolute Lymphs (auto) 0.50 L Nucleated RBC % 0 Differential Comment SCANNED Diff Path Review Reviewed Hypochromasia 2+ Ovalocytes RARE Sodium 140 Potassium 4.0 Chloride 103 Carbon Dioxide 30.0 Anion Gap 7 BUN 12 Creatinine 1.36 H Estim Creat Clear Calc 46.76 Est GFR (MDRD) Af Amer 65 Est GFR (MDRD) Non-Af 53 L BUN/Creatinine Ratio 8.8 L Glucose 131 H Calcium 8.4 L MRSA (PCR) Negative 07/28/19 05:10 WBC RBC Hgb Hct MCV MCH MCHC RDW Std Deviation RDW Coeff of Genesis Plt Count MPV Immature Gran % (Auto) Neut % (Auto) Lymph % (Auto) Coleman % (Auto) Eos % (Auto) Baso % (Auto) Absolute Neuts (auto) Absolute Lymphs (auto) Nucleated RBC % Differential Comment Diff Path Review Hypochromasia Ovalocytes Sodium 141 Potassium 4.3 Chloride 103 Carbon Dioxide 31.0 Anion Gap 7 BUN 12 Creatinine 1.28 Estim Creat Clear Calc 49.68 Est GFR (MDRD) Af Amer 69 Est GFR (MDRD) Non-Af 57 L BUN/Creatinine Ratio 9.4 L Glucose 136 H Calcium 8.4 L MRSA (PCR) Discharge Diet: No Restrictions Discharge Activity: Return to Normal Activity, May Shower, Use Walker Weight Bearing Status: Weight bearing as tolerated Call your doctor if you observe: Fever of 101 or Higher, Inability to urinate, Inability to have a bowel movement, Shortness of breath, Chest pain, Uncontrolled pain Home Medications: Medications to take at Discharge Polyethylene Glycol 3350 [Miralax] 17 gm PO DAILY PRN 02/18/19 Aspirin [Aspirin, Baby] 162 mg PO DAILY 07/13/19 Acetaminophen [Tylenol] 1,000 mg PO Q6H PRN PRN tablet 07/28/19 Amiodarone HCl [Cordarone] 200 mg PO DAILY #30 tab 07/28/19 Atorvastatin Calcium [Lipitor] 40 mg PO QHS #30 tab 07/28/19 Benzonatate [Tessalon Perle] 100 mg PO TID PRN PRN #90 cap 07/28/19 Guaifenesin Dm [Robitussin Dm] 10 ml PO Q4H PRN udc 07/28/19 Iron Polysaccharide Complex [Ferrex 150] 150 mg PO DAILYCM #30 cap 07/28/19 Menthol/Lanolin/Calamine/Znox [Calmoseptine Ointment] 1 applic TOPICAL 0600,2200 tube 07/28/19 Metoprolol Tartrate [Lopressor (beta leyda)] 50 mg PO Q8 #90 tab 07/28/19 Oxycodone [Oxyir] 5 mg PO Q4H PRN PRN 7 Days #30 tab 07/28/19 Tamsulosin HCl [Flomax] 0.4 mg PO DAILY #30 cap 07/28/19 Following Prescrptions Were Given to Patient: Amiodarone HCl [Cordarone] 200 mg PO DAILY #30 tab Transmission Status: Pending to [facility] Iron Polysaccharide Complex [Ferrex 150] 150 mg PO DAILYCM #30 cap Transmission Status: Pending to [facility] Tamsulosin HCl [Flomax] 0.4 mg PO DAILY #30 cap Transmission Status: Pending to [facility] Atorvastatin Calcium [Lipitor] 40 mg PO QHS #30 tab Transmission Status: Pending to [facility] Metoprolol Tartrate [Lopressor (beta leyda)] 50 mg PO Q8 #90 tab Transmission Status: Pending to [facility] Oxycodone [Oxyir] 5 mg PO Q4H PRN PRN 7 Days #30 tab PRN Reason: Severe Pain (6-09/01) Prescription Printed Benzonatate [Tessalon Perle] 100 mg PO TID PRN PRN #90 cap PRN Reason: COUGH Transmission Status: Pending to [facility] Primary Care Physician: Valdez Howell MD [Primary Care Provider] - Please follow up with your Primary Care Physician in: 1 week. Please Follow Up With: (akron cariologist)Dr Melanie Sylvester When: [phone] Please Follow Up With: Seaed Dang NP (embedded nurse) When: [phone] Disposition: Home with Home Health Minutes spent on discharge:: 35 Patient Condition:: Stable Medical Necessity - Tobacco Use Smoking Status: Former smoker Tobacco Use: Non-smoker Meaningful Use Info Meaningful Use Diagnoses (Choose all that apply): None applicable
--- NOTE | 2019-07-28 20:05 | PCM.PN.HH ---
Home Health Note - Plan Overview of reason of hospitalization: The patient is a 79 year old Male with below past medical history hospitalized for CABG x 2 07/04/[address] Jackson, post-operative course complicated by acute respiratory failure, hematuria, atrial fibrillation with rapid ventricular response, acute delirium, admitted to TCU with debility, here for rehabilitation, strengthening, prior to discharge home alone. 07/27/2019 Resident treated for left lower lobe healthcare associated pneumonia with 7 days IV Cefepime, IV Vancomycin, resident improved. Discharge home with sister, [facility] for PT/OT/SN. Problems: Patient was seen for (Last Reviewed 02/14/19 @ 15:15 by Daria Meza) Debility (Acute) Coronary artery disease (Chronic) Hypertension (Chronic) Hematuria (Acute) BPH (benign prostatic hyperplasia) (Chronic) Allergic rhinitis (Chronic) Vitamin D deficiency (Chronic) Complete List of Medical Problems (Last Updated 03/02/19 @ 14:34 by Geno Chapa) Debility (Acute) Coronary artery disease (Chronic) Hypertension (Chronic) Hematuria (Acute) BPH (benign prostatic hyperplasia) (Chronic) Allergic rhinitis (Chronic) Vitamin D deficiency (Chronic) History of right and left heart catheterization (Chronic 03/02/19) Iron deficiency anemia (Acute) Aortic stenosis (Chronic) Bowel obstruction (Acute) Mitral valve annular calcification (Chronic) Atrial fibrillation with rapid ventricular response (Acute) Acute metabolic encephalopathy (Acute) Acute kidney injury (Acute) Nonrheumatic aortic (valve) stenosis (Chronic) Prolonged QT interval (Acute) Left bundle branch block (Chronic) Anemia (Chronic) Hyperlipidemia (Chronic) Essential (primary) hypertension (Chronic) Umbilical hernia, incarcerated (Chronic 12/04/18) - Requirements and Reasons Disciplines Needed/Ordered: [facility], Physical Therapy Reason for Disciplines: Disease Specific Monitoring/education, Medication Management/Knowledge Deficit, Gait Training, Stair Training, Fall Prevention, Home Safety/Equipment Instruction, Balance and/or Posture Training, Transfer Training Related To: Change in Medical Treatment Plan, Limited/Poor Endurance, Shortness of Breath with Activity, Physical Impairments, Unsteady Gait/Balance, Intractable Pain, Fall Risk Patient is unable to leave the home: Without Aid of Supportive Devices (crutches, cane, wheelchair, walker), Without the assistance of another person, Because it is medically contraindicated Medically Contraindicated related to: Cardiac Condition - Additional Disciplines Additional Disciplines Needed/Ordered: Occupational Therapy
[2019-07-28] MEDS: 0.9% NaCl IVPB Med Flush (250 mL) 15 ML IV (21:41)
[2019-07-28] MEDS: Atorvastatin Calcium 40 MG Tablet PO (21:44)
[2019-07-28] MEDS: Benzonatate 100 MG Capsule PO (21:47)
[2019-07-28 21:48] VITALS: BP 159/81; PULSE 96
[2019-07-29] VITALS (9 sets, daily range): BP systolic 153–169; BP diastolic 85–102; PULSE 71–87; RESP 18; TEMP 36.8; O2SAT 96–97
[2019-07-29] MEDS: guaiFENesin Dm 10 ML UDC PO ×4 (01:36→21:00)
[2019-07-29] MEDS: Tamsulosin HCl 0.4 MG Capsule PO (05:53)
[2019-07-29] MEDS: Menthol/Lanolin/Calamine/Znox 113 GM Tube 1 APPLIC TOPICAL ×2 (05:53→21:02)
[2019-07-29] MEDS: Amiodarone 200 MG Tablet PO (05:55)
[2019-07-29] MEDS: Metoprolol Tartrate 50 MG Tablet PO ×3 (05:55→21:03)
[2019-07-29] MEDS: Aspirin 81 MG TAB.CHEW 162 MG PO (08:21)
[2019-07-29] MEDS: Iron Polysaccharide Complex 150 MG CAPSULE PO (08:24)
[2019-07-29] MEDS: oxyCODONE 5 MG Tablet PO (08:24)
[2019-07-29] MEDS: MethylPREDNISolone DosePak 4 MG BOX PO ×4 (08:25→21:03)
--- NOTE | 2019-07-29 10:30 | NURSING ---
PT HAS RIGHT LOWER POST CRACKLES. REPORTED TO SHARIF TROY
--- NOTE | 2019-07-29 11:24 | NURSING ---
Call received from Higinio Hinson NP from industrial electrician office. Order to increase ASA to 162mg PO daily, increase metoprolol to 50mg PO TID, wean patient off oxygen before going home, and walk patient 5x a day for atleast 5 minutes at a time. Send CXR films to [address] [facility] [address] [place]. [address].
[2019-07-29 12:32] LABS: Myoglobin, Serum 28 ng/mL (28-72)
--- NOTE | 2019-07-29 16:01 | CHAPLAIN ---
Type of Pastoral Visit _x__ Initial Visit ___ Follow-up Visit ___ On-call Visit ___ General Patient Visit ___ Spiritual Assessment ___ Family Conference ___ Bereavement ___ Rapid Response ___ Code Blue ___ Other (describe below) Pastoral Care Referral From _x__ Patient ___ Family ___ Nurse ___ Physician ___ Bundling Machine Operator ___ Crimp Setter ___ Other (describe below) Sacrament/Intervention _x__ Active listening ___ Anointing ___ Latter Day ___ Bereavement ___ Communion _x__ Ashley exploration ___ _x__ Life review _x__ Prayer ___ Reconciliation ___ Sacrament of Sick _x__ Supportive presence ___ Wedding ___ Other (describe below) Pastoral Comments
--- NOTE | 2019-07-29 17:05 | NURSING ---
New order for nasal swab for MRSA.
[2019-07-29] MEDS: 0.9% NaCl Peripheral Flush Adult/Peds IV (18:25)
[2019-07-29] MEDS: 0.9% NaCl IVPB Med Flush (250 mL) 15 ML IV (19:07)
--- NOTE | 2019-07-29 19:09 | NURSING ---
PT REFUSED INFUSING NORMAL SALINE. STOPPED THE INFUSING AND FLUSHED IV BY HAND,10ML. REPORTED TO SHARIF TROY
[2019-07-29] MEDS: Atorvastatin Calcium 40 MG Tablet PO (21:00)
--- NOTE | 2019-07-29 21:18 | NURSING ---
Pt Bp 166/102 sitting in recliner no s/sx noted given schedule lopressor rechecked Bp 1062/98. Rn made aware.
[2019-07-30] VITALS (8 sets, daily range): BP systolic 151–180; BP diastolic 74–108; PULSE 76–82; RESP 18; TEMP 36.6; O2SAT 96–98
--- NOTE | 2019-07-30 05:46 | NURSING ---
Resident has been having high Bp 161/108, HR-82. Rechecked 180/86 - HR 80 made RN aware. Sitting in bed right arm
[2019-07-30] MEDS: 0.9% NaCl Peripheral Flush Adult/Peds IV ×2 (05:52→06:08)
[2019-07-30] MEDS: Senna/Docusate Sodium 1 Tablet 2 TABLET PO (05:52)
[2019-07-30] MEDS: Amiodarone 200 MG Tablet PO (05:56)
[2019-07-30] MEDS: Metoprolol Tartrate 50 MG Tablet PO ×3 (05:56→20:17)
[2019-07-30] MEDS: Menthol/Lanolin/Calamine/Znox 113 GM Tube 1 APPLIC TOPICAL ×2 (05:57→20:18)
[2019-07-30] MEDS: Tamsulosin HCl 0.4 MG Capsule PO (05:57)
[2019-07-30] MEDS: Polyethylene Glycol 3350 17 GM PACKET PO (05:57)
[2019-07-30] MEDS: MethylPREDNISolone DosePak 4 MG BOX PO ×3 (08:40→20:16)
[2019-07-30] MEDS: Iron Polysaccharide Complex 150 MG CAPSULE PO (08:40)
[2019-07-30] MEDS: Aspirin 81 MG TAB.CHEW 162 MG PO (08:40)
[2019-07-30] MEDS: oxyCODONE 5 MG Tablet PO ×2 (08:41→17:14)
--- NOTE | 2019-07-30 09:17 | NURSING ---
Dr Khan updated on elevated BPs noted. pt asymptomatic. No new orders, continue to monitor.
[2019-07-30] MEDS: guaiFENesin Dm 10 ML UDC PO (10:57)
[2019-07-30] MEDS: Atorvastatin Calcium 40 MG Tablet PO (20:17)
[2019-07-31] VITALS (7 sets, daily range): BP systolic 140–163; BP diastolic 62–93; PULSE 61–80; RESP 18; TEMP 36.8–37.1; O2SAT 94–97
[2019-07-31] MEDS: Amiodarone 200 MG Tablet PO (05:22)
[2019-07-31] MEDS: Tamsulosin HCl 0.4 MG Capsule PO (05:22)
[2019-07-31] MEDS: Metoprolol Tartrate 50 MG Tablet PO ×2 (05:23→13:57)
[2019-07-31] MEDS: Menthol/Lanolin/Calamine/Znox 113 GM Tube 1 APPLIC TOPICAL ×2 (05:24→20:59)
[2019-07-31] MEDS: 0.9% NaCl Peripheral Flush Adult/Peds IV (05:24)
[2019-07-31] MEDS: guaiFENesin Dm 10 ML UDC PO ×2 (05:28→21:06)
[2019-07-31] MEDS: Iron Polysaccharide Complex 150 MG CAPSULE PO (08:23)
[2019-07-31] MEDS: MethylPREDNISolone DosePak 4 MG BOX PO ×2 (08:23→20:56)
[2019-07-31] MEDS: Aspirin 81 MG TAB.CHEW 162 MG PO (08:23)
[2019-07-31] MEDS: Senna/Docusate Sodium 1 Tablet 2 TABLET PO ×2 (12:42→17:31)
--- NOTE | 2019-07-31 13:34 | NURSING ---
Pt c/o stomach bloating & stomach turning. Dr Khan updated, new order for mylanta PRN. PT resting in recliner. BS x4, soft nontender. did state has not had BM today. Senna given, pt reports flatus. pt did eat some chicken noodle soup for lunch.
[2019-07-31] MEDS: Mag Hydrox/Al Hydrox/Simeth 30 ML UDC PO (13:43)
--- NOTE | 2019-07-31 15:00 | NURSING ---
pt c/o upset stomach this AM, N/O for mylanta PRN, changed amio to 8am medications to take with breakfast
[2019-07-31] MEDS: Atorvastatin Calcium 40 MG Tablet PO (20:57)
[2019-07-31] MEDS: oxyCODONE 5 MG Tablet PO (21:07)
[2019-08-01] VITALS (9 sets, daily range): BP systolic 144–166; BP diastolic 67–89; PULSE 50–64; RESP 16–18; TEMP 36.7; O2SAT 96–99
[2019-08-01] MEDS: Metoprolol Tartrate 50 MG Tablet PO (05:12)
[2019-08-01] MEDS: Tamsulosin HCl 0.4 MG Capsule PO (05:12)
[2019-08-01] MEDS: Menthol/Lanolin/Calamine/Znox 113 GM Tube 1 APPLIC TOPICAL ×2 (05:13→21:49)
[2019-08-01] MEDS: 0.9% NaCl Peripheral Flush Adult/Peds IV ×2 (06:04→17:54)
[2019-08-01] MEDS: 0.9% NaCl IVPB Med Flush (250 mL) 200 ML IV (06:07)
[2019-08-01] MEDS: Amiodarone 200 MG Tablet PO (09:12)
[2019-08-01] MEDS: Aspirin 81 MG TAB.CHEW 162 MG PO (09:13)
[2019-08-01] MEDS: MethylPREDNISolone DosePak 4 MG BOX PO (09:13)
[2019-08-01] MEDS: Iron Polysaccharide Complex 150 MG CAPSULE PO (09:13)
[2019-08-01] MEDS: oxyCODONE 5 MG Tablet PO (09:14)
[2019-08-01] MEDS: guaiFENesin Dm 10 ML UDC PO (10:24)
--- NOTE | 2019-08-01 14:16 | NURSING ---
Addendum entered by Cori Silverman 08/01/19 17:33: Dr. Khan made aware, continue to monitor patient at this time. Addendum entered by Sinai Downey 08/01/19 15:06: Pt c/o being shaky and dizzy that comes and goes. BP 166/72, P 52, R 16, T 98.0, SpO2 98% on RA. Cori OLGUIN in to assess pt. Original Note: Per therapy pt's HR between 50-56 with activity. BP 169/73. Stated pt having c/o feeling shaky. Reported to Cori OLGUIN.
--- NOTE | 2019-08-01 15:27 | NURSING ---
Addendum entered by Sinai Downey 08/01/19 18:59: At 1850 BP 162/79, HR 58. Reported to Cori OLGUIN. Original Note: 1400 scheduled Lopressor held per Dr Khan d/t pulse of 52. BP 166/72. Cori OLGUIN aware.
[2019-08-01] MEDS: Senna/Docusate Sodium 1 Tablet 2 TABLET PO (17:35)
[2019-08-01] MEDS: Atorvastatin Calcium 40 MG Tablet PO (21:49)
[2019-08-02] VITALS (7 sets, daily range): BP systolic 140–180; BP diastolic 57–79; PULSE 50–58; RESP 18; TEMP 37.1; O2SAT 95–97
[2019-08-02] MEDS: Senna/Docusate Sodium 1 Tablet 2 TABLET PO ×2 (05:43→17:30)
[2019-08-02] MEDS: Tamsulosin HCl 0.4 MG Capsule PO (05:43)
[2019-08-02] MEDS: Menthol/Lanolin/Calamine/Znox 113 GM Tube 1 APPLIC TOPICAL (05:44)
[2019-08-02] MEDS: Polyethylene Glycol 3350 17 GM PACKET PO (05:44)
[2019-08-02] MEDS: 0.9% NaCl Peripheral Flush Adult/Peds IV ×2 (05:50→06:43)
--- NOTE | 2019-08-02 05:58 | NURSING ---
Addendum entered by Teresa Pimentel 08/02/19 06:10: Dr. Khan notified of this. No new orders given. Original Note: Pt Bp 180/63, HR-50 c/o shakiness in shoulder, neck, and hands notified RN's. Not able to use saline lock in R hand d/t not be able to flush. Rn made aware.
[2019-08-02] MEDS: 0.9% NaCl IVPB Med Flush (250 mL) 200 ML IV (06:44)
--- NOTE | 2019-08-02 06:49 | NURSING ---
Pt has a new saline lock in L hand 22 gauge started by household chores. Rn made aware.
--- NOTE | 2019-08-02 07:21 | RAD_ITS ---
STUDY: X-RAY CHEST REASON FOR EXAM: Male, 79 years old. Shortness of breath. TECHNIQUE: PA and lateral views of the chest. COMPARISON: Comparison is made with prior study dated July 27, 2019. FINDINGS: Persistent left pleural effusion with underlying left basilar infiltration and/or atelectasis. This has improved. The right lung base is unchanged. Sternal cerclage wires and vascular clips are present from a prior sternotomy and coronary artery bypass graft procedure (CABG). Normal mediastinum and rafael. Normal visualized pulmonary arteries. There is atherosclerotic calcification of the aortic arch with tortuosity. Normal visualized thoracic spine. Normal visualized ribs, clavicles, and shoulders. There is no demonstrated abnormality of the visualized soft tissue structures of the upper abdomen. RAD/Chest PA and Lateral IMPRESSION: Persistent small left pleural effusion with underlying infiltration and/or atelectasis. This has improved as compared to prior study. Electronically Signed: Kings Vargas, at 11:48 EDT , Service support ,
[2019-08-02 07:49] LABS: Absolute Lymphocyte Count 1.28 X10^3/uL (0.83-4.51); Absolute Neutrophil Count 3.7 X10^3/uL (2.0-7.7); Basophil# 0.01 X10^3/uL; Basophil% 0.2 % (0-1); Eosinophil# 0.08 X10^3/uL; Eosinophils% 1.3 % (0-5); Hematocrit 28.5 % (40-54); Hemoglobin 8.7 g/dL (13.0-16.5); Lymphocyte # 1.28 X10^3/ul (4.0); Lymphocyte % 20.9 % (19-41); Mean Corp Hgb Conc 30.5 g/dL (32-36); Mean Corpuscular Hgb 28.9 pg (27.0-32.0); Mean Corpuscular Volume 94.7 fL (80-94); Mean Platelet Vol. 9.4 fl (6.2-12.0); Monocyte# 1.05 X10^3/uL; Monocyte% 17.2 % (0-10); NRBC Flagged by Analyzer 0 % (0-5); Neutrophil # 3.66 X10^3/uL (2.7-7.7); Neutrophil % 59.9 % (47-70); Platelet Count 170 K/mm3 (150-450); RBC Distribution Width CV 14.3 % (11.6-14.6); Red Blood Count 3.01 M/mm3 (4.6-6.2); White Blood Count 6.1 K/mm3 (4.4-11.0)
--- NOTE | 2019-08-02 08:00 | NURSING ---
New order for CBC with diff, BMP, magnesium level and 2 view CXR (PA/LAT). Patient made aware.
[2019-08-02 08:09] LABS: Anion Gap 2 (5-15); BUN 24 mg/dL (7-18); BUN/Creat Ratio 20.3 RATIO (10-20); Calcium,Total 8.5 mg/dL (8.5-10.1); Chloride 105 mmol/L (98-107); Creatinine, Serum 1.18 mg/dL (0.70-1.30); EST Glomerular Filtration Rate 63 mL/min (>60); Est Glom Filt Rate - Afr Amer 76 mL/min (>60); Estimated Creatinine Clearance 53.89 ml/min; Glucose 90 mg/dL (74-106); Magnesium 2.1 mg/dL (1.6-2.6); Potassium 3.6 mmol/L (3.5-5.1); Sodium Level 141 mmol/L (136-145)
--- NOTE | 2019-08-02 08:19 | NURSING ---
New order to D/C Parish Jacobsen.
[2019-08-02] MEDS: Aspirin 81 MG TAB.CHEW 162 MG PO (08:30)
[2019-08-02] MEDS: Iron Polysaccharide Complex 150 MG CAPSULE PO (08:31)
[2019-08-02] MEDS: Amiodarone 200 MG Tablet PO (08:31)
--- NOTE | 2019-08-02 08:35 | NURSING ---
New order for Potassium 40mEq x1 now.
--- NOTE | 2019-08-02 15:48 | NURSING ---
Patient had an episode of of shakiness and dizziness with minimal activity during therapy session. BP 169/55, pulse 50. HR regular rhythm. Dr. Khan notified, order to schedule appointment with Dr. Tillman to discuss issues since CABG. Spoke with SHARIF Jules at 's office, she will pass along information to physician and call back with appointment date and time.
[2019-08-02] MEDS: Mag Hydrox/Al Hydrox/Simeth 30 ML UDC PO (16:35)
--- NOTE | 2019-08-02 17:40 | NURSING ---
Dr. Khan reviewed CXR, NNO. Patient has appointment with Valdez Palomo NP at Cardiology office on 08/03/19 at 1430.
[2019-08-02] MEDS: guaiFENesin Dm 10 ML UDC PO (21:09)
[2019-08-02] MEDS: oxyCODONE 5 MG Tablet PO (21:09)
[2019-08-02] MEDS: Atorvastatin Calcium 40 MG Tablet PO (21:09)
[2019-08-03] VITALS (7 sets, daily range): BP systolic 164–184; BP diastolic 77–80; PULSE 53–62; RESP 18; TEMP 36.7; O2SAT 96–99
[2019-08-03] MEDS: 0.9% NaCl IVPB Med Flush (250 mL) 200 ML IV (05:03)
[2019-08-03] MEDS: 0.9% NaCl Peripheral Flush Adult/Peds IV ×2 (05:03→17:04)
[2019-08-03] MEDS: oxyCODONE 5 MG Tablet PO ×2 (06:08→20:56)
[2019-08-03] MEDS: Tamsulosin HCl 0.4 MG Capsule PO (06:09)
[2019-08-03] MEDS: Aspirin 81 MG TAB.CHEW 162 MG PO (08:31)
[2019-08-03] MEDS: Iron Polysaccharide Complex 150 MG CAPSULE PO (08:32)
[2019-08-03] MEDS: Amiodarone 200 MG Tablet PO (08:33)
--- NOTE | 2019-08-03 11:28 | NURSING ---
CD of chest xrays mailed today Higinio To NP safety associate in [place] per their request on Thursday07/29/19.
--- NOTE | 2019-08-03 14:40 | NURSING ---
Addendum entered by Janee Knight 08/03/19 17:27: RETURNED BUT NO NEW ORDERS. SISTER STATES PT HAD EKG DONE. NO CHANGE TO MEDS YET. Original Note: pt off unit to see plumber supervisor DR Primo MCCRAY, Valdez Palomo. sister at side.
--- NOTE | 2019-08-03 15:16 | NURSING ---
PER THERAPY PT IS TO WALK 5 TIMES A DAY ONLY WITH STAFF. OK TO WALK ALONE IN ROOM. REPORTED TO SHARIF SHEN
--- NOTE | 2019-08-03 16:06 | CASEMGMT ---
Social Work Patient having some medical complications and does feel ready to discharge home at this time. DC postponed until pt is ready and stable. Will continue to follow. Jessica Fabian, SALT OPERATOR HEATER [employer]URNACE
[2019-08-03] MEDS: Senna/Docusate Sodium 1 Tablet 2 TABLET PO (17:12)
--- NOTE | 2019-08-03 17:35 | NURSING ---
PT SALINE LOCK LEAKING FLUIDS, REMOVED. DISCUSSED WITH DR OLIVAREZ, NEW ORDER TO DC MAXIPIME.
[2019-08-03] MEDS: Menthol/Lanolin/Calamine/Znox 113 GM Tube 1 APPLIC TOPICAL (20:50)
[2019-08-03] MEDS: Atorvastatin Calcium 40 MG Tablet PO (20:52)
[2019-08-04] VITALS (7 sets, daily range): BP systolic 138–148; BP diastolic 68–82; PULSE 59–64; RESP 18; TEMP 36.8; O2SAT 96–98
[2019-08-04 06:28] LABS: Absolute Lymphocyte Count 1.18 X10^3/uL (0.83-4.51); Absolute Neutrophil Count 3.2 X10^3/uL (2.0-7.7); Basophil# 0.01 X10^3/uL; Basophil% 0.2 % (0-1); Eosinophil# 0.14 X10^3/uL; Eosinophils% 2.5 % (0-5); Lymphocyte # 1.18 X10^3/ul (4.0); Mean Corpuscular Hgb 28.3 pg (27.0-32.0); Mean Corpuscular Volume 94.3 fL (80-94); Mean Platelet Vol. 9.6 fl (6.2-12.0); Monocyte# 1.07 X10^3/uL; NRBC Flagged by Analyzer 0 % (0-5); Neutrophil # 3.21 X10^3/uL (2.7-7.7); Neutrophil % 56.9 % (47-70); Platelet Count 183 K/mm3 (150-450); RBC Distribution Width CV 14.1 % (11.6-14.6); Red Blood Count 3.18 M/mm3 (4.6-6.2); White Blood Count 5.6 K/mm3 (4.4-11.0)
[2019-08-04] MEDS: Tamsulosin HCl 0.4 MG Capsule PO (06:32)
[2019-08-04] MEDS: Menthol/Lanolin/Calamine/Znox 113 GM Tube 1 APPLIC TOPICAL ×2 (06:33→20:02)
[2019-08-04 06:45] LABS: Anion Gap 3 (5-15); BUN 15 mg/dL (7-18); BUN/Creat Ratio 12.5 RATIO (10-20); Calcium,Total 8.4 mg/dL (8.5-10.1); Chloride 105 mmol/L (98-107); EST Glomerular Filtration Rate 62 mL/min (>60); Est Glom Filt Rate - Afr Amer 75 mL/min (>60); Estimated Creatinine Clearance 52.99 ml/min; Glucose 92 mg/dL (74-106); Potassium 3.7 mmol/L (3.5-5.1); Sodium Level 139 mmol/L (136-145)
[2019-08-04] MEDS: Aspirin 81 MG TAB.CHEW 162 MG PO (08:37)
[2019-08-04] MEDS: Iron Polysaccharide Complex 150 MG CAPSULE PO (08:37)
[2019-08-04] MEDS: Amiodarone 200 MG Tablet PO (08:37)
[2019-08-04] MEDS: oxyCODONE 5 MG Tablet PO ×2 (08:46→20:09)
--- NOTE | 2019-08-04 11:16 | NURSING ---
MAHENDRA Delaney from [facility] here and wrote orders, decreased metoprolol to BID and Begin losartan 25mg daily for hypertension. Continue monitoring palpitations as this may worsen with metoprolol change. F/U in 2 weeks. No cardiac reason for left arm tremors at this time.
[2019-08-04] MEDS: Senna/Docusate Sodium 1 Tablet 2 TABLET PO (18:32)
[2019-08-04] MEDS: Metoprolol Tartrate 50 MG Tablet PO (18:33)
[2019-08-04] MEDS: Atorvastatin Calcium 40 MG Tablet PO (20:02)
[2019-08-05 05:51] VITALS: PULSE 59
[2019-08-05] MEDS: Menthol/Lanolin/Calamine/Znox 113 GM Tube 1 APPLIC TOPICAL ×2 (05:51→19:44)
[2019-08-05] MEDS: Tamsulosin HCl 0.4 MG Capsule PO (05:52)
[2019-08-05] MEDS: Losartan Potassium 25 MG Tablet PO (05:52)
[2019-08-05] MEDS: Senna/Docusate Sodium 1 Tablet 2 TABLET PO ×2 (05:53→17:35)
--- NOTE | 2019-08-05 07:38 | MDS.RN ---
Addendum entered by Micaela Glez 08/05/19 07:39: Resident remained in contact isolation in room through 07/26/19. Original Note: Information for the mds was obtained from review of the clinical record, interview of resident, staff, and direct observation of resident's care.
[2019-08-05] MEDS: Mag Hydrox/Al Hydrox/Simeth 30 ML UDC PO (08:15)
[2019-08-05] MEDS: Amiodarone 200 MG Tablet PO (09:03)
[2019-08-05] MEDS: Aspirin 81 MG TAB.CHEW 162 MG PO (09:03)
[2019-08-05] MEDS: Iron Polysaccharide Complex 150 MG CAPSULE PO (09:03)
[2019-08-05 09:11] VITALS: BP 152/78; PULSE 58; O2SAT 98
[2019-08-05] MEDS: oxyCODONE 5 MG Tablet PO (11:54)
--- NOTE | 2019-08-05 11:56 | NURSING ---
Pt c/o being sick to his stomach this AM. States he took early AM meds on an empty stomach. This nurse told pt to make sure he is taking meds with sarahy crackers to prevent GI upset. Venecia OLGUIN aware.
--- NOTE | 2019-08-05 13:12 | NURSING ---
Per therapy, pt has been c/o leg cramps. States they have progressively gotten worse since pt was started on fluid restriction. Therapy asking if pt could receive more H20. Reported info to Venecia OLGUIN.
[2019-08-05 14:06] VITALS: BP 138/76; PULSE 59
[2019-08-05 15:41] VITALS: BP 147/66; PULSE 60; RESP 16; TEMP 36.7; O2SAT 98
[2019-08-05 16:40] VITALS: BP 152/74; PULSE 58
[2019-08-05 16:41] VITALS: BP 152/74; PULSE 58
[2019-08-05] MEDS: Atorvastatin Calcium 40 MG Tablet PO (19:45)
[2019-08-06] MEDS: Menthol/Lanolin/Calamine/Znox 113 GM Tube 1 APPLIC TOPICAL ×2 (05:56→22:20)
[2019-08-06 05:57] VITALS: BP 146/72; PULSE 68
[2019-08-06] MEDS: Senna/Docusate Sodium 1 Tablet 2 TABLET PO ×2 (05:57→17:11)
[2019-08-06] MEDS: Metoprolol Tartrate 50 MG Tablet PO ×2 (05:57→17:11)
[2019-08-06] MEDS: Tamsulosin HCl 0.4 MG Capsule PO (05:57)
[2019-08-06] MEDS: Losartan Potassium 25 MG Tablet PO (05:57)
[2019-08-06 06:02] VITALS: BP 146/72; PULSE 68; RESP 16; O2SAT 97
[2019-08-06] MEDS: Mag Hydrox/Al Hydrox/Simeth 30 ML UDC PO (07:59)
[2019-08-06] MEDS: Iron Polysaccharide Complex 150 MG CAPSULE PO (08:00)
[2019-08-06] MEDS: Aspirin 81 MG TAB.CHEW 162 MG PO (08:00)
[2019-08-06] MEDS: Amiodarone 200 MG Tablet PO (08:00)
--- NOTE | 2019-08-06 11:07 | NURSING ---
PT COMPLAINED OF A UPSET STOMACH AT 8AM. MYLANTA GIVEN. WENT BACK TO CHECK ON PT AT 9AM AND PT STATED HE FELT A LITTLE BETTER AFTER HAVING A SMALL BM BUT STILL UNCOMFORTABLE. OFFERED PT HIS MIRALAX, PT REFUSED AND STATED HE WILL SEE HOW HE FEELS LATER. REPORTED TO SHARIF BAUMAN .
[2019-08-06 15:40] VITALS: BP 168/69; PULSE 69; RESP 18; TEMP 36.6; O2SAT 95
[2019-08-06 17:11] VITALS: BP 168/69; PULSE 69
[2019-08-06] MEDS: Atorvastatin Calcium 40 MG Tablet PO (21:16)
[2019-08-06 21:20] VITALS: BP 162/74; PULSE 54; RESP 18; TEMP 37.1; O2SAT 97
[2019-08-07 06:36] VITALS: BP 160/86; PULSE 64
[2019-08-07] MEDS: Losartan Potassium 25 MG Tablet PO (06:36)
[2019-08-07] MEDS: Metoprolol Tartrate 50 MG Tablet PO (06:36)
[2019-08-07] MEDS: Tamsulosin HCl 0.4 MG Capsule PO (06:36)
[2019-08-07] MEDS: Menthol/Lanolin/Calamine/Znox 113 GM Tube 1 APPLIC TOPICAL ×2 (06:38→21:18)
[2019-08-07] MEDS: oxyCODONE 5 MG Tablet PO (08:04)
[2019-08-07] MEDS: Amiodarone 200 MG Tablet PO (08:05)
[2019-08-07] MEDS: Iron Polysaccharide Complex 150 MG CAPSULE PO (08:05)
[2019-08-07] MEDS: Aspirin 81 MG TAB.CHEW 162 MG PO (08:05)
[2019-08-07 09:50] VITALS: PULSE 54; RESP 18; O2SAT 99
--- NOTE | 2019-08-07 10:38 | NURSING ---
THIS NURSE WALKED PT ON TCU HALLS X2. PT TOLERATED WELL. NO COMPLAINTS STATED BY PT.
[2019-08-07 16:00] VITALS: BP 145/80; PULSE 50; RESP 20; TEMP 36.6; O2SAT 98
[2019-08-07 17:46] VITALS: PULSE 53
[2019-08-07 17:47] VITALS: BP 145/80; PULSE 53
--- NOTE | 2019-08-07 18:28 | NURSING ---
THIS NURSE WALKED PT FULL LEVELOCK ON FLOOR. PT TOLERATED WELL. NO COMPLAINTS AT THIS TIME.
[2019-08-07] MEDS: Atorvastatin Calcium 40 MG Tablet PO (21:19)
[2019-08-08] MEDS: Menthol/Lanolin/Calamine/Znox 113 GM Tube 1 APPLIC TOPICAL ×2 (06:51→21:27)
[2019-08-08] MEDS: Tamsulosin HCl 0.4 MG Capsule PO (06:52)
[2019-08-08] MEDS: Losartan Potassium 25 MG Tablet PO (06:52)
[2019-08-08 06:55] VITALS: BP 190/80; PULSE 55
[2019-08-08] MEDS: oxyCODONE 5 MG Tablet PO ×2 (06:58→13:23)
[2019-08-08] MEDS: guaiFENesin Dm 10 ML UDC PO ×2 (08:31→21:24)
[2019-08-08] MEDS: Iron Polysaccharide Complex 150 MG CAPSULE PO (08:41)
[2019-08-08] MEDS: Aspirin 81 MG TAB.CHEW 162 MG PO (08:41)
[2019-08-08] MEDS: Amiodarone 200 MG Tablet PO (08:41)
[2019-08-08 09:00] VITALS: BP 150/76; PULSE 58; RESP 18; O2SAT 97
[2019-08-08 13:28] VITALS: BP 144/76; PULSE 58
[2019-08-08 16:00] VITALS: BP 150/78; PULSE 64; RESP 18; O2SAT 97
[2019-08-08 17:25] VITALS: BP 150/78; PULSE 64
[2019-08-08] MEDS: Senna/Docusate Sodium 1 Tablet 2 TABLET PO (17:25)
[2019-08-08] MEDS: Metoprolol Tartrate 50 MG Tablet PO (17:25)
--- NOTE | 2019-08-08 18:07 | NURSING ---
Addendum entered by Sinai Downey 08/08/19 19:39: Pt updated on N.O. for CXR. Pt's sister present in room and stated that pt has had 3 xrays since he has been here and will be getting another xray on Thursday prior to his appt with Dr Navarro. Pt stated he doesn't feel the need for an xray at this time and that he felt better after PRN Robitussin was given. Reported to Theo OLGUIN. Original Note: Earlier in the shift pt was c/o non-productive cough. LCTA. Pt stated he felt like his chest congestion was coming back. PRN Robitussin utilized with + results. Reported to Theo OLGUIN and Dr. Khan was updated.
--- NOTE | 2019-08-08 18:20 | NURSING ---
Pt refused chest xray. Is getting xray on thursday at his DrSara visit per pt. Ok to cancel per Dr. Khan
--- NOTE | 2019-08-08 19:05 | NURSING ---
Pt has appt with Dr. Navarro on Sunday 08/12 and is to discharge home on 08/11. Sister is requesting that the packet that is sent to dr haywood be sent home with the pt on discharge so he can take it to his appt. Sister also stated pt has transport set up to appt for Thursday with [employer] transportation. Sister is wanting to know if transport can be arranged to pick pt up at home since he will be discharged on .
[2019-08-08 21:07] VITALS: PULSE 62; RESP 18
[2019-08-08] MEDS: Atorvastatin Calcium 40 MG Tablet PO (21:26)
[2019-08-09 06:31] VITALS: BP 160/72; PULSE 65
[2019-08-09] MEDS: Metoprolol Tartrate 50 MG Tablet PO (06:31)
[2019-08-09] MEDS: Polyethylene Glycol 3350 17 GM PACKET PO (06:31)
[2019-08-09] MEDS: Tamsulosin HCl 0.4 MG Capsule PO (06:31)
[2019-08-09] MEDS: Losartan Potassium 25 MG Tablet PO (06:32)
[2019-08-09] MEDS: Senna/Docusate Sodium 1 Tablet 2 TABLET PO ×2 (06:32→17:52)
[2019-08-09] MEDS: Menthol/Lanolin/Calamine/Znox 113 GM Tube 1 APPLIC TOPICAL (06:33)
[2019-08-09] MEDS: Aspirin 81 MG TAB.CHEW 162 MG PO (09:14)
[2019-08-09] MEDS: Iron Polysaccharide Complex 150 MG CAPSULE PO (09:14)
[2019-08-09] MEDS: Amiodarone 200 MG Tablet PO (09:14)
[2019-08-09 09:17] VITALS: BP 148/78; PULSE 58; O2SAT 98
[2019-08-09 10:00] VITALS: PULSE 58; RESP 18; O2SAT 98
[2019-08-09 16:00] VITALS: BP 154/82; PULSE 58; RESP 18; TEMP 36.8; O2SAT 98
[2019-08-09 17:52] VITALS: BP 154/82; PULSE 58
--- NOTE | 2019-08-09 17:53 | NURSING ---
1800 scheduled Metoprolol held for HR of 58. BP 154/82. Reported to Janee OLGUIN.
[2019-08-09] MEDS: oxyCODONE 5 MG Tablet PO (20:26)
[2019-08-09] MEDS: Atorvastatin Calcium 40 MG Tablet PO (20:26)
[2019-08-10] MEDS: Senna/Docusate Sodium 1 Tablet 2 TABLET PO ×2 (07:15→18:06)
[2019-08-10] MEDS: Losartan Potassium 25 MG Tablet PO (07:15)
[2019-08-10] MEDS: Polyethylene Glycol 3350 17 GM PACKET PO (07:15)
[2019-08-10] MEDS: Tamsulosin HCl 0.4 MG Capsule PO (07:15)
[2019-08-10 07:19] VITALS: BP 180/70; PULSE 56
[2019-08-10] MEDS: oxyCODONE 5 MG Tablet PO ×2 (07:20→20:56)
[2019-08-10 07:51] VITALS: PULSE 63; O2SAT 95
[2019-08-10] MEDS: Iron Polysaccharide Complex 150 MG CAPSULE PO (07:51)
[2019-08-10] MEDS: Aspirin 81 MG TAB.CHEW 162 MG PO (07:51)
[2019-08-10] MEDS: Amiodarone 200 MG Tablet PO (07:51)
[2019-08-10 15:46] VITALS: BP 164/64
--- NOTE | 2019-08-10 15:46 | NURSING ---
THIS NURSE SEEN PT LEFT EAR BLEEDING,ASKED PT WHAT HAPPENED. PT STATED HE WAS SHAVING AND NICKED HIS EAR. ALSO PT FACE AND FORE HEAD RIGHT ABOVE NOSE IS RED. ASKED PT WHY SO RED.PT STATED HE DIDN'T KNOW BUT ITCHES. APPLIED LOTION TO AREAS. REPORTED TO SHARIF BAUMAN
[2019-08-10 16:59] VITALS: PULSE 62; RESP 18; TEMP 36.9; O2SAT 97
[2019-08-10 18:07] VITALS: BP 164/64; PULSE 62
[2019-08-10] MEDS: Metoprolol Tartrate 50 MG Tablet PO (18:07)
[2019-08-10] MEDS: Atorvastatin Calcium 40 MG Tablet PO (20:56)
[2019-08-11 05:39] LABS: Absolute Lymphocyte Count 1.44 X10^3/uL (0.83-4.51); Absolute Neutrophil Count 3.1 X10^3/uL (2.0-7.7); Basophil# 0.01 X10^3/uL; Basophil% 0.2 % (0-1); Eosinophil# 0.08 X10^3/uL; Eosinophils% 1.4 % (0-5); Hematocrit 29.2 % (40-54); Hemoglobin 8.9 g/dL (13.0-16.5); Lymphocyte # 1.44 X10^3/ul (4.0); Lymphocyte % 25.9 % (19-41); Mean Corp Hgb Conc 30.5 g/dL (32-36); Mean Corpuscular Hgb 28.3 pg (27.0-32.0); Mean Platelet Vol. 9.7 fl (6.2-12.0); Monocyte# 0.89 X10^3/uL; NRBC Flagged by Analyzer 0 % (0-5); Neutrophil # 3.12 X10^3/uL (2.7-7.7); Neutrophil % 56.3 % (47-70); Platelet Count 192 K/mm3 (150-450); RBC Distribution Width CV 13.8 % (11.6-14.6); RBC Distribution Width SD 47.2 fl (35.1-43.9); Red Blood Count 3.14 M/mm3 (4.6-6.2); White Blood Count 5.6 K/mm3 (4.4-11.0)
[2019-08-11 06:01] LABS: Anion Gap 6 (5-15); BUN 12 mg/dL (7-18); BUN/Creat Ratio 10.4 RATIO (10-20); Calcium,Total 8.1 mg/dL (8.5-10.1); Chloride 105 mmol/L (98-107); Creatinine, Serum 1.15 mg/dL (0.70-1.30); EST Glomerular Filtration Rate 65 mL/min (>60); Est Glom Filt Rate - Afr Amer 78 mL/min (>60); Estimated Creatinine Clearance 55.29 ml/min; Glucose 80 mg/dL (74-106); Potassium 3.8 mmol/L (3.5-5.1); Sodium Level 141 mmol/L (136-145)
[2019-08-11 06:10] VITALS: BP 142/90; PULSE 57
[2019-08-11] MEDS: Tamsulosin HCl 0.4 MG Capsule PO (06:11)
[2019-08-11] MEDS: Losartan Potassium 25 MG Tablet PO (06:11)
[2019-08-11] MEDS: Senna/Docusate Sodium 1 Tablet 2 TABLET PO (06:11)
[2019-08-11] MEDS: guaiFENesin Dm 10 ML UDC PO (06:13)
[2019-08-11] MEDS: Aspirin 81 MG TAB.CHEW 162 MG PO (08:00)
[2019-08-11] MEDS: Amiodarone 200 MG Tablet PO (08:00)
[2019-08-11] MEDS: Iron Polysaccharide Complex 150 MG CAPSULE PO (08:01)
[2019-08-11 09:00] VITALS: PULSE 59; RESP 18; O2SAT 98
[2019-08-11 12:09] VITALS: BP 166/78; PULSE 54; RESP 18; TEMP 36.9; O2SAT 94
== END 2019-08-11 13:30 | disposition home health service (06) | DRG 949 ==
PROVIDERS: Admitting Provider Family Medicine Geriatric Medicine; Family Provider Family Medicine; PCP Family Medicine; Referring Provider Family Medicine Geriatric Medicine; Visit Provider Family Medicine Geriatric Medicine
DX: Z48.812 Encounter for surgical aftercare following surgery on the circulatory system (principal); J18.9 Pneumonia, unspecified organism; L03.116 Cellulitis of left lower limb; I25.10 Atherosclerotic heart disease of native coronary artery without angina pectoris; I48.91 Unspecified atrial fibrillation; E78.5 Hyperlipidemia, unspecified; N40.0 Benign prostatic hyperplasia without lower urinary tract symptoms; I10 Essential (primary) hypertension; F41.9 Anxiety disorder, unspecified; D50.9 Iron deficiency anemia, unspecified; E55.9 Vitamin D deficiency, unspecified; B35.4 Tinea corporis; Z95.1 Presence of aortocoronary bypass graft; Z87.891 Personal history of nicotine dependence; B02.9 Zoster without complications; Y95 Nosocomial condition
CPT/HCPCS: 36415; 71046; 80048; 82274; 82550; 83735; 83874; 83880; 84484; 85014; 85018; 85025; 87070; 87205; 87641; 93005; 93970; 94640; 94667; 94668; 97110; 97116; 97163; 97166; 97530; 97535; 97802; J7040; J7050; 90670; A4216

== ENCOUNTER 2019-08-20 07:53 | Emergency (ER) | payer MEDICARE, OTHER, SELFPAY ==
[2019-08-18 15:13] VITALS: BMI 26.0
[2019-08-20] VITALS (9 sets, daily range): BP systolic 151–168; BP diastolic 77–89; PULSE 93–148; RESP 16–22; TEMP 36.3–36.6; O2SAT 97–100; BMI 26.1
--- NOTE | 2019-08-20 08:15 | EKG12_ITS ---
Test Reason : SOB Blood Pressure : / mmHG Vent. Rate : 101 BPM Atrial Rate : 101 BPM P-R Int : 128 ms QRS Dur : 162 ms QT Int : 468 ms P-R-T Axes : 000 -40 105 degrees QTc Int : 606 ms Sinus tachycardia Left axis deviation Left bundle branch block Abnormal ECG Confirmed by RASHEL ZAMARRIPA, HELLEN ([id number]), video editor ALFREDO CARTER ([id number]) on 08/22/2019 3:02:15 PM Referred By: Confirmed By:HELLEN KISER MD
--- NOTE | 2019-08-20 08:15 | RAD_ITS ---
STUDY: X-RAY CHEST REASON FOR EXAM: Male, 79 years old. Shortness of breath. TECHNIQUE: Single AP portable view of the chest. COMPARISON: 02 August 2019 FINDINGS: Sternotomy wires are midline. Left hemidiaphragm eventration is present with mild basilar atelectasis. No evidence of residual effusion is present on this exam. There is no demonstrated pleural abnormality. Normal size heart. Normal mediastinum and rafael. Normal visualized pulmonary arteries. There is atherosclerotic calcification of the aortic arch with tortuosity. Normal visualized thoracic spine. Normal visualized ribs, clavicles, and shoulders. There is no demonstrated abnormality of the visualized soft tissue structures of the upper abdomen. RAD/Chest 1 View (Portable) IMPRESSION: No evidence of focal airspace disease or effusion. Electronically Signed: Keo Gurrola DO at 8:47 EDT , Service support ,
[2019-08-20 08:40] LABS: Absolute Lymphocyte Count 0.77 X10^3/uL (0.83-4.51); Absolute Neutrophil Count 2.3 X10^3/uL (2.0-7.7); Basophil# 0.01 X10^3/uL; Basophil% 0.3 % (0-1); Eosinophil# 0.01 X10^3/uL; Eosinophils% 0.3 % (0-5); Hematocrit 24.3 % (40-54); Hemoglobin 7.2 g/dL (13.0-16.5); Lymphocyte # 0.77 X10^3/ul (4.0); Lymphocyte % 22.5 % (19-41); Mean Corp Hgb Conc 29.6 g/dL (32-36); Mean Corpuscular Hgb 27.3 pg (27.0-32.0); Mean Platelet Vol. 9.9 fl (6.2-12.0); Monocyte# 0.28 X10^3/uL; Monocyte% 8.2 % (0-10); NRBC Flagged by Analyzer 0 % (0-5); Neutrophil # 2.34 X10^3/uL (2.7-7.7); Neutrophil % 68.4 % (47-70); Platelet Count 182 K/mm3 (150-450); RBC Distribution Width SD 47.4 fl (35.1-43.9); Red Blood Count 2.64 M/mm3 (4.6-6.2); White Blood Count 3.4 K/mm3 (4.4-11.0)
[2019-08-20 09:00] LABS: International Normalized Ratio 1.3; Prothrombin Time (Protime)PT. 15.8 SECONDS (11.7-14.9)
[2019-08-20 09:01] LABS: Partial Thromboplast Time 30.3 Seconds (24.1-36.2)
[2019-08-20 09:07] LABS: AST(SGOT) 13 U/L (15-37); Alanine Aminotransfer ALT/SGPT 12 U/L (16-61); Albumin, Serum 2.9 g/dL (3.2-5.0); Alkaline Phosphatase 76 U/L (45-117); Anion Gap 8 (5-15); BUN 50 mg/dL (7-18); BUN/Creat Ratio 41.7 RATIO (10-20); Bilirubin, Direct 0.07 mg/dL (0.00-0.30); Calcium,Total 8.3 mg/dL (8.5-10.1); Chloride 107 mmol/L (98-107); EST Glomerular Filtration Rate 62 mL/min (>60); Est Glom Filt Rate - Afr Amer 75 mL/min (>60); Estimated Creatinine Clearance 52.99 ml/min; Globulin 3.9 g/dL (2.2-4.2); Glucose 125 mg/dL (74-106); Protein, Total 6.8 g/dL (6.4-8.2); Sodium Level 143 mmol/L (136-145)
--- NOTE | 2019-08-20 09:18 | EKG12_ITS ---
Test Reason : Blood Pressure : / mmHG Vent. Rate : 135 BPM Atrial Rate : 092 BPM P-R Int : 000 ms QRS Dur : 156 ms QT Int : 380 ms P-R-T Axes : 000 -51 101 degrees QTc Int : 570 ms Wide QRS tachycardia Left axis deviation Left bundle branch block Pattern Abnormal ECG Confirmed by RASHEL ZAMARRIPA, HELLEN ([id number]), photographic editor APURVA CASTILLO ([id number]) on 08/24/2019 1:30:22 PM Referred By: Confirmed By:HELLEN KISER MD
--- NOTE | 2019-08-20 11:50 | NURSING ---
JUAN ARAUJO [id number] NURSE TO NURSE [phone] CONTRERAS
--- NOTE | 2019-08-20 12:00 | NURSING ---
CALLED [facility] FOR TRANSFER. ETA IS 3.5 TO 4 HRS
--- NOTE | 2019-08-20 12:08 | NURSING ---
[facility], ETA IS 1.5 TO 2 HRS. CANCELLED [facility]
--- NOTE | 2019-08-20 13:06 | ED.RN ---
EMS IN DEPARTMENT.
--- NOTE | 2019-08-20 16:20 | ED.VISSUMM ---
- ER Visit Summary Date of Service: 08/20/19 Chief Complaint: Shortness of breath History of Present Illness: The patient is a 79 M who states that today he attempted to ambulate a short distance at his house and he suddenly got short of breath felt his heart racing and felt like he may pass out. His symptoms abated when he sat down. 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 He states he is not on any blood thinners. He reports that he had a hiatal hernia surgically repaired at that time had gastric bleeding. He is a former smoker. He notes his stool has been black and loose. Physical Examination: Afebrile noted heart rate of 102 blood pressure 151/77 Gen: Well-nourished well-developed Head: Normocephalic atraumatic Eyes: Perrl EOMI ENT: TMs clear no rhinorrhea moist mucous membranes Neck: Supple no lymphadenopathy no JVD nontender CVS: Regular rate tachycardic rhythm no murmurs normal S1-S2 Respiratory: No distress clear to auscultation bilaterally healing midline chest incision. Abdomen: Soft nontender nondistended normal bowel sounds no masses Rectal: No large amount of stool but what is on the glove is black and small flecks Back: Nontender Extremity: Nontender no edema Skin: Normal color no rash Neuro: alert orientated ?3 CN II-XII intact normal strength sensation Psych: Normal affect normal mood Test Results: Patient's hemoglobin is 7.2 which is down for him. His BUN is 50 and his creatinine is 1.2. Troponin 0 0.015. EKG is sinus with a left bundle branch block at a rate of 105. Chest x-ray negative. Emergency Department Course and Treatment: The patient stood up to urinate and heart rate went to a proximally 160 he appeared very irregular. Does have a history of A. fib. However once he got back into the bed his heart rate came down and became more regular. Perhaps this was a sinus tachycardia with some ectopy but no EKG caught that rhythm. His Hemoccult is positive his hemoglobin is down to 7.2. He received a dose of Protonix. I spoke with on-call surgery Dr. Wallace who recommends transfer. I contacted [facility] he has been accepted. I did not order any blood because I did not know how long the patient was going to be here. As it turns out we do not have to delay his care to transfuse him. As long as he is at rest he appears him dynamically stable. Impression: 1. Upper GI bleed 2. Anemia This note was generated with [employer] dictation software. It may contain incorrect words, spelling, and punctuation that were not noted in review of the chart prior to signing ED Disposition - Plan for ED Patient: Disposition: [facility] Referrals: Mal Main [Primary Care Provider] -
== END 2019-08-20 13:20 | disposition short-term general hospital (02) ==
LOC: ED 08:24
PROVIDERS: Emergency Provider Emergency Medicine; Family Provider Family Medicine; PCP Family Medicine
DX: I48.0 Paroxysmal atrial fibrillation (principal); K92.2 Gastrointestinal hemorrhage, unspecified; D64.9 Anemia, unspecified; I44.7 Left bundle-branch block, unspecified; I25.10 Atherosclerotic heart disease of native coronary artery without angina pectoris; I35.0 Nonrheumatic aortic (valve) stenosis; I10 Essential (primary) hypertension; E78.00 Pure hypercholesterolemia, unspecified; Z95.2 Presence of prosthetic heart valve; Z95.1 Presence of aortocoronary bypass graft; Z79.82 Long term (current) use of aspirin; Z79.899 Other long term (current) drug therapy; Z87.891 Personal history of nicotine dependence
CPT/HCPCS: 71045; 80048; 80076; 82274; 84484; 85025; 85610; 85730; 93005; 96365; 96366; 99285; A4216; J3490

== ENCOUNTER → 2019-09-01 16:36 | Outpatient (CLI) | payer MEDICARE, OTHER, SELFPAY ==
[2019-09-01 15:29] VITALS: BMI 26.7
--- NOTE | 2019-09-01 16:38 | RAD_ITS ---
STUDY: X-RAY CHEST REASON FOR EXAM: Male, 79 years old. Cough TECHNIQUE: PA and lateral COMPARISON: , August 20, 2019 FINDINGS: Nonspecific elevation of the left hemidiaphragm. There are increased markings in the right lower lobe which may represent focal infiltrate.. There is no demonstrated pleural abnormality. Postop change status post median sternotomy and CABG. Normal size heart. Normal mediastinum and rafael. Normal visualized pulmonary arteries. Normal visualized aortic arch and descending thoracic aorta. Dorsal spine demonstrates scoliosis and degenerative change. Normal visualized ribs, clavicles, and shoulders. There is no demonstrated abnormality of the visualized soft tissue structures of the upper abdomen. The prominent markings in the right lower lobe are new finding since previous study RAD/Chest PA and Lateral IMPRESSION: Mildly increased markings in the right lower lobe since prior study which may represent evolving acute inflammatory process. Electronically Signed: Maciej Knight MD at 23:05 EDT , Service support ,
== END ==
PROVIDERS: Family Provider Family Medicine; PCP Family Medicine; Referring Provider Nurse Practitioner Family; Visit Provider Nurse Practitioner Family
DX: R05 Cough (principal)
CPT/HCPCS: 71046

== ENCOUNTER → 2019-09-12 11:08 | Outpatient (CLI) | payer MEDICARE, OTHER, SELFPAY ==
[2019-09-01 15:29] VITALS: BMI 26.7
[2019-09-12 14:08] LABS: Absolute Neutrophil Count 1.7 X10^3/uL (2.0-7.7); Basophil# 0.01 X10^3/uL; Basophil% 0.3 % (0-1); Eosinophil# 0.06 X10^3/uL; Eosinophils% 1.5 % (0-5); Hematocrit 30.2 % (40-54); Hemoglobin 8.9 g/dL (13.0-16.5); Lymphocyte % 37.8 % (19-41); Mean Corp Hgb Conc 29.5 g/dL (32-36); Mean Corpuscular Hgb 27.8 pg (27.0-32.0); Mean Corpuscular Volume 94.4 fL (80-94); Mean Platelet Vol. 10.5 fl (6.2-12.0); Monocyte# 0.66 X10^3/uL; Monocyte% 16.6 % (0-10); NRBC Flagged by Analyzer 0 % (0-5); Neutrophil # 1.73 X10^3/uL (2.7-7.7); Neutrophil % 43.5 % (47-70); Platelet Count 168 K/mm3 (150-450); RBC Distribution Width CV 14.9 % (11.6-14.6); RBC Distribution Width SD 51.6 fl (35.1-43.9); RET-HE 29.1 pg (30-35); Reticulocyte Count 2.53 % (0.5-1.5)
== END ==
PROVIDERS: Family Provider Family Medicine; PCP Family Medicine; Referring Provider Family Medicine; Visit Provider Family Medicine
DX: D64.9 Anemia, unspecified (principal)
CPT/HCPCS: 36415; 85025; 85045

== ENCOUNTER → 2019-11-14 13:57 | Outpatient (CLI) | payer MEDICARE, OTHER, SELFPAY ==
[2019-10-07 13:18] VITALS: BMI 26.8
[2019-11-14 16:38] LABS: ALB/GLOB Ratio 0.9 RATIO (0.9-2.4); AST(SGOT) 19 U/L (15-37); Alanine Aminotransfer ALT/SGPT 16 U/L (16-61); Albumin, Serum 3.6 g/dL (3.2-5.0); Alkaline Phosphatase 110 U/L (45-117); Anion Gap 7 (5-15); BUN 17 mg/dL (7-18); BUN/Creat Ratio 12.1 RATIO (10-20); Calcium,Total 8.9 mg/dL (8.5-10.1); Chloride 105 mmol/L (98-107); Cholesterol 132 mg/dL (200); Creatinine, Serum 1.41 mg/dL (0.70-1.30); EST Glomerular Filtration Rate 51 mL/min (>60); Est Glom Filt Rate - Afr Amer 62 mL/min (>60); Globulin 4.2 g/dL (2.2-4.2); Glucose 102 mg/dL (74-106); High Density Lipoprotein 43 mg/dL; Potassium 3.8 mmol/L (3.5-5.1); Protein, Total 7.8 g/dL (6.4-8.2); Sodium Level 141 mmol/L (136-145); Triglycerides 209 mg/dL; Very Low Density Lipoprotein 42 mg/dL (5-40)
[2019-11-14 16:46] LABS: Absolute Lymphocyte Count 2.09 X10^3/uL (0.83-4.51); Absolute Neutrophil Count 2.6 X10^3/uL (2.0-7.7); Basophil# 0.01 X10^3/uL; Basophil% 0.2 % (0-1); Eosinophil# 0.09 X10^3/uL; Eosinophils% 1.5 % (0-5); Hematocrit 39.8 % (40-54); Hemoglobin 12.3 g/dL (13.0-16.5); Lymphocyte # 2.09 X10^3/ul (4.0); Mean Corp Hgb Conc 30.9 g/dL (32-36); Mean Corpuscular Volume 90.7 fL (80-94); Mean Platelet Vol. 10.8 fl (6.2-12.0); Monocyte# 1.02 X10^3/uL; Monocyte% 17.6 % (0-10); NRBC Flagged by Analyzer 0 % (0-5); Neutrophil # 2.59 X10^3/uL (2.7-7.7); Neutrophil % 44.5 % (47-70); Platelet Count 219 K/mm3 (150-450); RBC Distribution Width CV 14.4 % (11.6-14.6); Red Blood Count 4.39 M/mm3 (4.6-6.2); White Blood Count 5.8 K/mm3 (4.4-11.0)
== END ==
PROVIDERS: Family Provider Family Medicine; PCP Family Medicine; Referring Provider Family Medicine; Visit Provider Family Medicine
DX: I25.10 Atherosclerotic heart disease of native coronary artery without angina pectoris (principal); D50.9 Iron deficiency anemia, unspecified
CPT/HCPCS: 36415; 80053; 80061; 85025

== ENCOUNTER → 2019-11-18 18:16 | Outpatient (CLI) | payer MEDICARE, OTHER, SELFPAY ==
[2019-10-07 13:18] VITALS: BMI 26.8
== END ==
PROVIDERS: Family Provider Family Medicine; PCP Family Medicine; Referring Provider Family Medicine; Visit Provider Family Medicine
DX: L02.91 Cutaneous abscess, unspecified (principal)
CPT/HCPCS: 87070; 87077; 87186; 87205

== ENCOUNTER → 2019-12-20 13:42 | Outpatient (CLI) | payer MEDICARE, OTHER, SELFPAY ==
[2019-10-07 13:18] VITALS: BMI 26.8
--- NOTE | 2019-12-20 13:44 | ECHOCS_ITS ---
Reason For Study: CHF Procedure This was a 2D Doppler, Color Flow transthoracic echocardiogram. The study was technically difficult. Limited views were obtained. Contrast injection was performed. Exam performed in department. Left Ventricle Moderate concentric left ventricular hypertrophy. The estimated ejection fraction is 65 %. Stage 2 diastolic dysfunction. No regional wall motion abnormalities noted. Right Ventricle Normal size and thickness. Normal systolic function. Atria Normal left atrium. Normal right atrium. Normal atrial septum. Mitral Valve Mild diffuse mitral valve thickening. Severe mitral annular calcification extending into the posterior leaflet. Tricuspid Valve Normal tricuspid valve. Unable to estimate RV systolic pressure due to insufficient tricuspid regurgitant envelope. Aortic Valve Stable appearing bioprosthetic aortic valve apparatus. Pulmonic Valve Normal pulmonic valve. Great Vessels Normal aortic root. Normal arch. Normal inferior vena cava. Pericardium/Pleural No pericardial effusion. Medication 22 gauge I.V. with prn adaptor inserted into right arm. Diluted definity 2ml given slow IV push to enhance endocardial definition. MMode/2D Measurements & Calculations LVIDd: 4.7 cm IVSd: 1.4 cm LVOT diam: 2.0 cm LVIDs: 3.0 cm LVPWd: 1.8 cm FS: 36.2 % LVOT area: 3.1 cm2 LAV(MOD-bp): 62.0 ml LA A4 area: 21.4 cm2 RA A4 area: 18.1 cm2 LAV(MOD-bp) Indexed: 28.8 ml/m2 LAV(MOD-sp2): 58.6 ml LAV(MOD-sp4): 60.5 ml Doppler Measurements & Calculations MV E max ronn: 102.5 cm/sec Lat Peak E' Ronn: 5.7 cm/sec Med Peak E' Ronn: 6.5 cm/sec E/E' lat: 18.0 E/E' med: 15.7 Ao V2 max: 217.6 cm/sec LV V1 max: 109.6 cm/sec SV(LVOT): 50.4 ml Ao max P.0 mmHg LV V1 max P.8 mmHg Ao V2 mean: 130.3 cm/sec LV V1 mean P.2 mmHg Ao mean P.4 mmHg LV V1 mean: 66.5 cm/sec Ao V2 VTI: 29.4 cm LV V1 VTI: 16.2 cm RAJIV(I,D): 1.7 cm2 RAJIV(V,D): 1.6 cm2 Interpretation Summary Moderate concentric left ventricular hypertrophy. The estimated ejection fraction is 65 %. Stage 2 diastolic dysfunction. Unable to estimate RV systolic pressure due to insufficient tricuspid regurgitant envelope. Stable appearing and normal functioning bioprosthetic aortic valve apparatus. Compared to echo report dated 03/02/2019, LV function has remained the same. The study was technically difficult. Contrast injection was performed. Ordering Physician: Mack Tillman Referring Physician: Mal Main Performed By: Gorge Dejesus RCS
== END ==
PROVIDERS: PCP Family Medicine; Referring Provider Internal Medicine Cardiovascular Disease; Visit Provider Internal Medicine Cardiovascular Disease
DX: I25.10 Atherosclerotic heart disease of native coronary artery without angina pectoris (principal); I50.9 Heart failure, unspecified
CPT/HCPCS: 93306; Q9957; A4216; C8929

== ENCOUNTER → 2019-12-21 07:21 | Outpatient (CLI) | payer MEDICARE, OTHER, SELFPAY ==
[2019-10-07 13:18] VITALS: BMI 26.8
[2019-12-21 08:54] LABS: AST(SGOT) 16 U/L (15-37); Alanine Aminotransfer ALT/SGPT 16 U/L (16-61); Albumin, Serum 3.4 g/dL (3.2-5.0); Alkaline Phosphatase 98 U/L (45-117); Bilirubin, Direct 0.15 mg/dL (0.00-0.30); Cholesterol 111 mg/dL (200); Globulin 4.4 g/dL (2.2-4.2); High Density Lipoprotein 42 mg/dL; Protein, Total 7.8 g/dL (6.4-8.2); Triglycerides 132 mg/dL; Very Low Density Lipoprotein 26 mg/dL (5-40)
== END ==
PROVIDERS: PCP Family Medicine; Referring Provider Internal Medicine Cardiovascular Disease; Visit Provider Internal Medicine Cardiovascular Disease
DX: E78.00 Pure hypercholesterolemia, unspecified (principal)
CPT/HCPCS: 36415; 80061; 80076

== ENCOUNTER → 2020-05-08 13:31 | Outpatient (CLI) | payer MEDICARE, OTHER, SELFPAY ==
[2020-01-27 13:51] VITALS: BMI 28.0
[2020-05-08 15:17] LABS: Magnesium 1.9 mg/dL (1.6-2.6)
[2020-05-08 15:29] LABS: Vitamin B12 323 pg/mL (211-911)
== END ==
PROVIDERS: PCP Family Medicine; Referring Provider Family Medicine; Visit Provider Family Medicine
DX: I10 Essential (primary) hypertension (principal)
CPT/HCPCS: 36415; 82607; 83735

== ENCOUNTER → 2020-05-11 18:10 | Outpatient (CLI) | payer MEDICARE, OTHER, SELFPAY ==
[2020-01-27 13:51] VITALS: BMI 28.0
== END ==
PROVIDERS: PCP Family Medicine; Referring Provider Ophthalmology; Visit Provider Ophthalmology
DX: Z22.321 Carrier or suspected carrier of Methicillin susceptible Staphylococcus aureus (principal)
CPT/HCPCS: 87070; 87081; 87205

== ENCOUNTER → 2020-06-07 08:28 | Outpatient (CLI) | payer MEDICARE, OTHER, SELFPAY ==
[2020-05-28 15:55] VITALS: BMI 28.2
[2020-06-07 08:57] LABS: Absolute Lymphocyte Count 1.67 X10^3/uL (0.83-4.51); Absolute Neutrophil Count 2.9 X10^3/uL (2.0-7.7); Eosinophil# 0.03 X10^3/uL; Eosinophils% 0.6 % (0-5); Hematocrit 40.4 % (40-54); Hemoglobin 13.2 g/dL (13.0-16.5); Lymphocyte # 1.67 X10^3/ul (4.0); Lymphocyte % 31.5 % (19-41); Mean Corp Hgb Conc 32.7 g/dL (32-36); Mean Corpuscular Hgb 30.6 pg (27.0-32.0); Mean Corpuscular Volume 93.7 fL (80-94); Mean Platelet Vol. 9.9 fl (6.2-12.0); Monocyte# 0.73 X10^3/uL; Monocyte% 13.7 % (0-10); NRBC Flagged by Analyzer 0 % (0-5); Neutrophil # 2.86 X10^3/uL (2.7-7.7); Neutrophil % 53.8 % (47-70); Platelet Count 153 K/mm3 (150-450); RBC Distribution Width SD 44.4 fl (35.1-43.9); Red Blood Count 4.31 M/mm3 (4.6-6.2); White Blood Count 5.3 K/mm3 (4.4-11.0)
[2020-06-07 09:43] LABS: AST(SGOT) 16 U/L (15-37); Alanine Aminotransfer ALT/SGPT 18 U/L (16-61); Albumin, Serum 3.3 g/dL (3.2-5.0); Alkaline Phosphatase 115 U/L (45-117); Anion Gap 7 (5-15); BUN 16 mg/dL (7-18); BUN/Creat Ratio 13.4 RATIO (10-20); Bilirubin, Direct 0.12 mg/dL (0.00-0.30); Calcium,Total 8.6 mg/dL (8.5-10.1); Chloride 107 mmol/L (98-107); Cholesterol 165 mg/dL (200); Creatinine, Serum 1.19 mg/dL (0.70-1.30); EST Glomerular Filtration Rate 62 mL/min (>60); Est Glom Filt Rate - Afr Amer 75 mL/min (>60); Globulin 4.1 g/dL (2.2-4.2); Glucose 114 mg/dL (74-106); High Density Lipoprotein 39 mg/dL; Potassium 3.8 mmol/L (3.5-5.1); Protein, Total 7.4 g/dL (6.4-8.2); Sodium Level 140 mmol/L (136-145); T4 Free Direct 0.92 ng/dL (0.76-1.46); Thyroid Stim Hormone (TSH) 2.13 uIU/mL (0.358-3.74); Triglycerides 134 mg/dL; Very Low Density Lipoprotein 27 mg/dL (5-40)
== END ==
PROVIDERS: PCP Family Medicine; Referring Provider Nurse Practitioner Family; Visit Provider Nurse Practitioner Family
DX: I25.10 Atherosclerotic heart disease of native coronary artery without angina pectoris (principal); I10 Essential (primary) hypertension; E78.5 Hyperlipidemia, unspecified; R53.83 Other fatigue; Z86.79 Personal history of other diseases of the circulatory system
CPT/HCPCS: 36415; 80048; 80061; 80076; 84439; 84443; 85025

== ENCOUNTER → 2020-06-12 16:55 | Outpatient (CLI) | payer MEDICARE, OTHER, SELFPAY ==
[2020-05-28 15:55] VITALS: BMI 28.2
[2020-06-12 17:37] LABS: Absolute Lymphocyte Count 2.22 X10^3/uL (0.83-4.51); Absolute Neutrophil Count 2.6 X10^3/uL (2.0-7.7); Basophil# 0.02 X10^3/uL; Basophil% 0.3 % (0-1); Eosinophil# 0.06 X10^3/uL; Hematocrit 41.7 % (40-54); Hemoglobin 13.6 g/dL (13.0-16.5); Lymphocyte # 2.22 X10^3/ul (4.0); Lymphocyte % 38.7 % (19-41); Mean Corp Hgb Conc 32.6 g/dL (32-36); Mean Corpuscular Hgb 30.8 pg (27.0-32.0); Mean Corpuscular Volume 94.6 fL (80-94); Mean Platelet Vol. 9.8 fl (6.2-12.0); Monocyte# 0.87 X10^3/uL; Monocyte% 15.2 % (0-10); NRBC Flagged by Analyzer 0 % (0-5); Neutrophil # 2.56 X10^3/uL (2.7-7.7); Neutrophil % 44.6 % (47-70); Platelet Count 184 K/mm3 (150-450); RBC Distribution Width CV 12.9 % (11.6-14.6); RBC Distribution Width SD 44.5 fl (35.1-43.9); Red Blood Count 4.41 M/mm3 (4.6-6.2); White Blood Count 5.7 K/mm3 (4.4-11.0)
[2020-06-12 18:05] LABS: Erythrocyte Sedimentation Rate 23 mm/hr (0-20)
[2020-06-12 18:18] LABS: ALB/GLOB Ratio 0.8 RATIO (0.9-2.4); AST(SGOT) 18 U/L (15-37); Alanine Aminotransfer ALT/SGPT 18 U/L (16-61); Albumin, Serum 3.6 g/dL (3.2-5.0); Alkaline Phosphatase 108 U/L (45-117); Anion Gap 6 (5-15); BUN 16 mg/dL (7-18); BUN/Creat Ratio 11.9 RATIO (10-20); CRP < 2.90 mg/L (0.0-3.0); Calcium,Total 8.7 mg/dL (8.5-10.1); Chloride 104 mmol/L (98-107); Creatinine, Serum 1.34 mg/dL (0.70-1.30); EST Glomerular Filtration Rate 54 mL/min (>60); Est Glom Filt Rate - Afr Amer 66 mL/min (>60); Globulin 4.4 g/dL (2.2-4.2); Glucose 103 mg/dL (74-106); Potassium 3.7 mmol/L (3.5-5.1); Sodium Level 139 mmol/L (136-145)
[2020-06-13 13:38] LABS: Vitamin B12 298 pg/mL (211-911); Vitamin D,25 Hydroxy 29.8 ng/mL
[2020-06-14 02:25] LABS: Rapid Plasmin Reagin (RPR) NONREACTIVE (NONREACTIVE)
== END ==
PROVIDERS: Visit Provider Family Medicine Geriatric Medicine
DX: I10 Essential (primary) hypertension (principal); E55.9 Vitamin D deficiency, unspecified; F03.90 Unspecified dementia, unspecified severity, without behavioral disturbance, psychotic disturbance, mood disturbance, and anxiety; M35.3 Polymyalgia rheumatica; R53.83 Other fatigue
CPT/HCPCS: 36415; 80053; 82306; 82607; 82746; 84443; 85025; 85652; 86140; 86592; 87086

== ENCOUNTER → 2020-06-21 13:26 | Outpatient (CLI) | payer MEDICARE, OTHER, SELFPAY ==
[2020-05-28 15:55] VITALS: BMI 28.2
--- NOTE | 2020-06-21 13:35 | CT_ITS ---
STUDY: CT BRAIN WITHOUT CONTRAST REASON FOR EXAM: Male, 80 years old. DEMENTIA, HX HTN, PT POOR HISTORIAN RADIATION DOSAGE (If Supplied By Facility): CTDIvol = ( 44.99 ) mGy, DLP = ( 812.98 ) mGycm TECHNIQUE: Transaxial CT imaging of the brain was performed without administration of intravenous contrast material. Individualized dose optimization techniques were used for this CT. COMPARISON: No relevant priors. FINDINGS: Normal soft tissue structures. Normal calvarium. There is mild cerebral atrophy with widening of the extra-axial spaces and ventricular dilatation. There are areas of decreased attenuation within the white matter tracts of the supratentorial brain, consistent with microvascular disease changes. 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 Normal brainstem. Normal cerebellum. There is no intracranial hemorrhage. There are no findings of an acute ischemic infarction. Atherosclerotic plaque formation of the cavernous portions of the internal carotid arteries bilaterally. Mild mucosal thickening along the medial wall of the left maxillary sinus. CT/Brain/Head without Contrast IMPRESSION: Chronic involutional changes of the brain. Electronically Signed: Kings Vargas, at 14:09 EDT , Service support ,
== END ==
PROVIDERS: PCP Family Medicine Geriatric Medicine; Referring Provider Family Medicine Geriatric Medicine; Visit Provider Family Medicine Geriatric Medicine
DX: F03.90 Unspecified dementia, unspecified severity, without behavioral disturbance, psychotic disturbance, mood disturbance, and anxiety (principal)
CPT/HCPCS: 70450

== ENCOUNTER → 2020-06-26 15:07 | Outpatient (CLI) | payer MEDICARE, OTHER, SELFPAY ==
[2020-05-28 15:55] VITALS: BMI 28.2
[2020-06-26 16:17] LABS: Homocysteine 13.4 umol/L (3.2-10.7)
== END ==
PROVIDERS: PCP Family Medicine Geriatric Medicine; Visit Provider Family Medicine Geriatric Medicine
DX: R53.83 Other fatigue (principal)
CPT/HCPCS: 36415; 83090; 83921

== ENCOUNTER → 2020-08-30 06:19 | Outpatient (CLI) | payer MEDICARE, OTHER, SELFPAY ==
[2020-08-10 10:54] VITALS: BMI 29.5
--- NOTE | 2020-09-03 18:07 | STRESSREP_ITS ---
Stress Test Report Date: 08/30/2020 Procedure: Pharmacologic stress nuclear imaging study Indications: CAD Consent: Per the patient Procedure: The patient underwent pharmacologic (Regadenoson) evaluation with a peak heart rate of 95 beats per minute (68%predicted maximal heart rate) and a peak blood pressure of 168/72 mmHg. The baseline ECG demonstrated sinus rhythm nonspecific intraventricular conduction delay. EKG during lexiscan infusion revealed no significant ischemic changes. EKG post infusion revealed no significant ischemic changes [There were no cardiac dysrhythmias pretest, during pharmacologic infusion, or recovery]. [There was no complaint of chest discomfort during pharmacologic infusion or recovery]. The examination was discontinued secondary to completion of protocol. Impression: 1. Lexiscan stress test test is negative for Lexiscan infusion induced EKG changes of ischemia. 2. Lexiscan stress test test is negative for Lexiscan infusion induced chest pain. 3. Results of the nuclear portion of the test is as below Myocardial perfusion imaging study: Technique: The patient was injected with 10.6 millicuries of technetium 99m Cardiolite and subsequently rest SPECT Cardiolite nuclear imaging was obtained in the horizontal long, vertical long, and short axis views. The patient underwent pharmacologic (Regadenoson) evaluation. Please see above for details. The patient was injected with 34.5 millicuries of technetium 99m Cardiolite and subsequently stress SPECT Cardiolite nuclear imaging was obtained in the horizontal long, vertical long, and short axis views. A gated Cardiolite study at peak stress was obtained. Interpretation: Rest and stress SPECT Cardiolite nuclear imaging status post realignment, normalization, and attenuation correction demonstrate mild to moderately decreased radioisotope uptake in the lateral wall on the stress images compared to the rest images suggestive of ischemia in this territory. Gated images reveal no significant regional wall motion abnormalities. The reported LVEF is 63%. Impression: 1. There is evidence of mild to moderate ischemia involving the lateral wall. 2. Estimated ejection fraction is 63%. This note was generated with [employer] software. It may contain incorrect words, spelling, and punctuation that were not noted in checking the note before signing.
== END ==
PROVIDERS: PCP Family Medicine Geriatric Medicine; Referring Provider Nurse Practitioner Family; Visit Provider Nurse Practitioner Family
DX: I47.2 Ventricular tachycardia (principal); I48.0 Paroxysmal atrial fibrillation; I25.10 Atherosclerotic heart disease of native coronary artery without angina pectoris; Z95.1 Presence of aortocoronary bypass graft; Z95.3 Presence of xenogenic heart valve
CPT/HCPCS: 78452; 93017; A9500; A4216; J2785

== ENCOUNTER → 2020-09-27 | Outpatient (CLI) | payer MEDICARE, OTHER, SELFPAY ==
[2020-08-10 10:54] VITALS: BMI 29.5
== END | disposition home or self-care (01) ==
LOC: POLAB3 16:15 → LABSPEC 16:15
PROVIDERS: PCP Family Medicine Geriatric Medicine; Visit Provider Family Medicine Geriatric Medicine
DX: N39.0 Urinary tract infection, site not specified (principal)
CPT/HCPCS: 87086; 87088

== ENCOUNTER → 2020-11-28 14:39 | Outpatient (CLI) | payer MEDICARE, OTHER, SELFPAY ==
[2020-08-10 10:54] VITALS: BMI 29.5
--- NOTE | 2020-11-28 16:08 | RAD_ITS ---
STUDY: X-RAY - RIGHT KNEE REASON FOR EXAM: Right knee pain. TECHNIQUE: 3 view(s) of the knee. COMPARISON: None. FINDINGS: Normal visualized distal femur. Normal visualized proximal tibia and fibula. Normal proximal tibiofibular articulation. There is severe joint space narrowing of the medial femorotibial compartment. Normal lateral femorotibial compartment. There are small marginal osteophytes and moderate joint space narrowing of the patellofemoral articulation. There is a small joint effusion. There is vascular calcification. RAD/Knee 3 Views IMPRESSION: Arthrosis of the medial femorotibial and patellofemoral compartments. Small joint effusion. Electronically Signed: Niko Prabhakar MD at 14:22 EST Tel , Service support ,
--- NOTE | 2020-11-28 16:08 | RAD_ITS ---
STUDY: X-RAY - RIGHT TIBIA AND FIBULA REASON FOR EXAM: Right lower leg pain. TECHNIQUE: 2 view(s) of the tibia and fibula were obtained. COMPARISON: None. FINDINGS: Normal visualized tibia. Normal visualized fibula. There is vascular calcification. RAD/Tibia & Fibula 2 Views IMPRESSION: Vascular calcification. Otherwise, unremarkable x-ray examination of the right tibia and fibula. Electronically Signed: Niko Prabhakar MD at 14:34 EST Tel , Service support ,
[2020-11-28 17:18] LABS: Vitamin D,25 Hydroxy 16.8 ng/mL
[2020-11-28 17:20] LABS: Absolute Lymphocyte Count 1.98 X10^3/uL (0.83-4.51); Absolute Neutrophil Count 2.1 X10^3/uL (2.0-7.7); Basophil# 0.01 X10^3/uL; Basophil% 0.2 % (0-1); Eosinophil# 0.02 X10^3/uL; Eosinophils% 0.4 % (0-5); Hematocrit 42.3 % (40-54); Hemoglobin 13.4 g/dL (13.0-16.5); Lymphocyte # 1.98 X10^3/ul (4.0); Lymphocyte % 40.7 % (19-41); Mean Corp Hgb Conc 31.7 g/dL (32-36); Mean Corpuscular Hgb 29.5 pg (27.0-32.0); Mean Corpuscular Volume 93.2 fL (80-94); Mean Platelet Vol. 10.4 fl (6.2-12.0); Monocyte# 0.79 X10^3/uL; Monocyte% 16.2 % (0-10); NRBC Flagged by Analyzer 0 % (0-5); Neutrophil # 2.07 X10^3/uL (2.7-7.7); Neutrophil % 42.5 % (47-70); Platelet Count 190 K/mm3 (150-450); RBC Distribution Width SD 44.2 fl (35.1-43.9); Red Blood Count 4.54 M/mm3 (4.6-6.2); White Blood Count 4.9 K/mm3 (4.4-11.0)
[2020-11-28 17:25] LABS: ALB/GLOB Ratio 0.8 RATIO (0.9-2.4); AST(SGOT) 13 U/L (15-37); Alanine Aminotransfer ALT/SGPT 19 U/L (16-61); Albumin, Serum 3.5 g/dL (3.2-5.0); Alkaline Phosphatase 117 U/L (45-117); Anion Gap 5 (5-15); BUN 16 mg/dL (7-18); BUN/Creat Ratio 10.7 RATIO (10-20); Calcium,Total 8.8 mg/dL (8.5-10.1); Chloride 106 mmol/L (98-107); EST Glomerular Filtration Rate 48 mL/min (>60); Est Glom Filt Rate - Afr Amer 58 mL/min (>60); Globulin 4.3 g/dL (2.2-4.2); Glucose 112 mg/dL (74-106); Potassium 3.8 mmol/L (3.5-5.1); Protein, Total 7.8 g/dL (6.4-8.2); Sodium Level 139 mmol/L (136-145)
== END ==
PROVIDERS: PCP Family Medicine Geriatric Medicine; Referring Provider Family Medicine Geriatric Medicine; Visit Provider Family Medicine Geriatric Medicine
DX: M79.661 Pain in right lower leg (principal); M25.561 Pain in right knee; I10 Essential (primary) hypertension; E55.9 Vitamin D deficiency, unspecified
CPT/HCPCS: 36415; 73562; 73590; 80053; 82306; 84443; 85025

== ENCOUNTER → 2021-01-24 14:22 | Outpatient (CLI) | payer MEDICARE, OTHER, SELFPAY ==
[2020-08-10 10:54] VITALS: BMI 29.5
[2021-01-24 16:28] LABS: Protein, Urine (Random) 132.2 mg/dL (<11.9); Protein:Creat Ratio 636 mg/g CRE (0-200)
[2021-01-29 20:07] LABS: Albumin, Ur 66.4 % (.); Alpha-1-Globulin, Ur 1.4 % (.); Alpha-2-Globulins, Ur 4.9 % (.); Beta Globulin, Ur 13.1 % (.); Gamma Globulin, Ur 14.2 % (.); Total Protein, Ur 136.4 mg/dL (Not Estab.)
[2021-01-30 13:45] LABS: IFE Result, Ur Comment: (.); M-Spike, Ur % Comment: % (Not Observed)
== END ==
PROVIDERS: Internal Medicine Nephrology; PCP Family Medicine Geriatric Medicine; Visit Provider Family Medicine Geriatric Medicine
DX: N18.31 Chronic kidney disease, stage 3a (principal); R80.9 Proteinuria, unspecified
CPT/HCPCS: 36415; 82570; 84156; 84166; 86335

== ENCOUNTER → 2021-02-08 13:47 | Outpatient (CLI) | payer MEDICARE, OTHER, SELFPAY ==
[2020-08-10 10:54] VITALS: BMI 29.5
[2021-02-08 14:10] LABS: Hematocrit 41.7 % (40-54); Hemoglobin 13.3 g/dL (13.0-16.5); Mean Corp Hgb Conc 31.9 g/dL (32-36); Mean Corpuscular Hgb 29.7 pg (27.0-32.0); Mean Corpuscular Volume 93.1 fL (80-94); Mean Platelet Vol. 9.7 fl (6.2-12.0); Platelet Count 180 K/mm3 (150-450); RBC Distribution Width CV 12.8 % (11.6-14.6); RBC Distribution Width SD 43.8 fl (35.1-43.9); Red Blood Count 4.48 M/mm3 (4.6-6.2); White Blood Count 5.2 K/mm3 (4.4-11.0)
[2021-02-08 14:55] LABS: Albumin, Serum 3.5 g/dL (3.2-5.0); BUN 17 mg/dL (7-18); BUN/Creat Ratio 12.9 RATIO (10-20); Calcium,Total 8.8 mg/dL (8.5-10.1); Chloride 106 mmol/L (98-107); Creatinine, Serum 1.32 mg/dL (0.70-1.30); EST Glomerular Filtration Rate 55 mL/min (>60); Est Glom Filt Rate - Afr Amer 67 mL/min (>60); Ferritin 22 ng/mL (26-388); Glucose 77 mg/dL (74-106); Iron 79 ug/dL (65-175); Iron Binding Capacity,Total 309 ug/dL (250-450); Phosphorus 3.2 mg/dL (2.5-4.9); Potassium 3.8 mmol/L (3.5-5.1); Sodium Level 140 mmol/L (136-145)
[2021-02-11 16:08] LABS: PROEL- A/G Ratio 0.9 (0.7-1.7); PROEL- Albumin 3.5 g/dL (2.9-4.4); PROEL- Alpha-1 Globulin 0.2 g/dL (0.0-0.4); PROEL- Alpha-2 Globulin 0.9 g/dL (0.4-1.0); PROEL- Gamma Globulin 1.7 g/dL (0.4-1.8); PROEL- Globulin, Total 3.8 g/dL (2.2-3.9); PROEL- TOTAL PROTEIN 7.3 g/dL (6.0-8.5)
== END ==
PROVIDERS: PCP Family Medicine Geriatric Medicine; Referring Provider Internal Medicine Nephrology; Visit Provider Internal Medicine Nephrology
DX: D64.9 Anemia, unspecified (principal); N18.31 Chronic kidney disease, stage 3a; R80.9 Proteinuria, unspecified
CPT/HCPCS: 36415; 80069; 82728; 83540; 83550; 84165; 85027

== ENCOUNTER → 2021-02-18 08:53 | Outpatient (CLI) | payer MEDICARE, OTHER, SELFPAY ==
[2020-08-10 10:54] VITALS: BMI 29.5
--- NOTE | 2021-02-18 09:02 | RDU_ITS ---
Reason For Study: Hypetension Right Renal Artery Left Renal Artery Right renal artery ostium Left renal artery ostium 170.3/21.1 144.5/21.7 RSV/EDV. PSV/EDV. Right renal artery proximal Left renal artery proximal PSV/EDV 126.9/17.3 PSV/EDV. 150.5/27.6 . Right renal artery mid 141.2/28.1 Left renal artery mid 134.9/30 PSV/EDV. PSV/EDV . Right renal artery distal 156.5/19 Left renal artery distal 122.6/15.8 PSV/EDV. PSV/EDV. Right RAR 1.80. Left RAR 1.96. Right Renal Parenchyma Left Renal Parenchyma Upper Pole Medula 30/7.2 PSV/EDV. Left upper pole medulla 35.1/9.3 Right upper pole medulla EDR 0.24 . PSV/EDV . Right upper pole medulla R.I. Left upper pole medulla EDR 0.26 . 0.76 . Left upper pole medulla R.I. 0.74 . Upper Maurice Cortx 20.9/6.3 PSV/EDV. UP Cortex 25.2/6 PSV/EDV. Right upper pole cortex EDR 0.30 . Left upper pole cortex EDR 0.24 . Right upper pole cortex R.I. 0.70 . Left upper pole cortex R.I. 0.76 . Right lower Pole medulla 29.1/9 Left lower Pole medulla 31.8/6 PSV/EDV . PSV/EDV . Right lower pole medulla EDR 0.31 . Left lower pole medulla EDR 0.19 . Right lower pole medulla R.I. Left lower pole medulla R.I. 0.81 . 0.69 . Lower Pole Cortx 20.8/6.5 PSV/EDV. Lower Pole Cortex 24.6/7.2 PSV/EDV. Left lower pole cortex EDR 0.31 . Right lower pole cortex EDR 0.29 . Left lower pole cortex R.I. 0.69 . Right lower pole cortex R.I. 0.71 . Left Renal Hilar Right Renal Hilar LT Hilar avg 47.4/11.8 PSV/EDV . Right Hilar avg 43.7/10 PSV/EDV. Left hilar acceleration time 60 Right hilar acceleration time 30 m/sec. m/sec. Left Renal Dimensions Right Renal Dimensions Left kidney size 11.42 cm . Right kidney size 11.22 cm . Left cortical dimension 1.35 cm . Right cortical dimension 1.49 cm . Aorta Proximal abdominal aorta 1.89 x 1.89 cm . Proximal abdominal aorta peak systolic velocity is 106.7 cm/sec . Distal abdominal aorta 1.57 x 1.50 cm . Distal abdominal aorta peak systolic velocity is 86.9 cm/sec . VL/Renal Artery Duplex Ultrasound Interpretation Summary There is no evidence of hemodynamically significant renal artery stenosis on ei ther side. Ordering Physician: Marcy Roque Referring Physician: Husam Khan Chi Performed By: Cande Hinds RVT
== END ==
PROVIDERS: PCP Family Medicine Geriatric Medicine; Referring Provider Internal Medicine Nephrology; Visit Provider Internal Medicine Nephrology
DX: I10 Essential (primary) hypertension (principal)
CPT/HCPCS: 93975

== ENCOUNTER → 2021-02-26 13:24 | Outpatient (CLI) | payer MEDICARE, OTHER, SELFPAY ==
[2021-02-18 14:45] VITALS: BMI 29.8
[2021-02-26 15:04] LABS: Absolute Neutrophil Count 2.4 X10^3/uL (2.0-7.7); Basophil# 0.01 X10^3/uL; Basophil% 0.2 % (0-1); Eosinophil# 0.02 X10^3/uL; Eosinophils% 0.4 % (0-5); Hematocrit 40.9 % (40-54); Hemoglobin 13.2 g/dL (13.0-16.5); Lymphocyte % 37.1 % (19-41); Mean Corp Hgb Conc 32.3 g/dL (32-36); Mean Corpuscular Hgb 30.5 pg (27.0-32.0); Mean Corpuscular Volume 94.5 fL (80-94); Mean Platelet Vol. 10.4 fl (6.2-12.0); Monocyte# 0.63 X10^3/uL; NRBC Flagged by Analyzer 0 % (0-5); Neutrophil # 2.37 X10^3/uL (2.7-7.7); Neutrophil % 48.9 % (47-70); Platelet Count 173 K/mm3 (150-450); RBC Distribution Width CV 12.9 % (11.6-14.6); RBC Distribution Width SD 44.5 fl (35.1-43.9); Red Blood Count 4.33 M/mm3 (4.6-6.2); White Blood Count 4.9 K/mm3 (4.4-11.0)
[2021-02-26 15:17] LABS: Vitamin D,25 Hydroxy 20.9 ng/mL
[2021-02-26 15:25] LABS: ALB/GLOB Ratio 0.8 RATIO (0.9-2.4); AST(SGOT) 13 U/L (15-37); Alanine Aminotransfer ALT/SGPT 20 U/L (16-61); Albumin, Serum 3.4 g/dL (3.2-5.0); Alkaline Phosphatase 100 U/L (45-117); Anion Gap 2 (5-15); BUN 19 mg/dL (7-18); BUN/Creat Ratio 14.5 RATIO (10-20); Calcium,Total 8.8 mg/dL (8.5-10.1); Chloride 108 mmol/L (98-107); Creatinine, Serum 1.31 mg/dL (0.70-1.30); EST Glomerular Filtration Rate 56 mL/min (>60); Est Glom Filt Rate - Afr Amer 67 mL/min (>60); Globulin 4.3 g/dL (2.2-4.2); Glucose 91 mg/dL (74-106); Potassium 4.1 mmol/L (3.5-5.1); Protein, Total 7.7 g/dL (6.4-8.2); Sodium Level 138 mmol/L (136-145); Thyroid Stim Hormone (TSH) 2.57 uIU/mL (0.358-3.74)
== END ==
PROVIDERS: PCP Family Medicine Geriatric Medicine; Visit Provider Family Medicine Geriatric Medicine
DX: I10 Essential (primary) hypertension (principal); E55.9 Vitamin D deficiency, unspecified
CPT/HCPCS: 36415; 80053; 82306; 84443; 85025

== ENCOUNTER → 2021-06-06 09:24 | Outpatient (CLI) | payer MEDICARE, OTHER, SELFPAY ==
[2021-02-18 14:45] VITALS: BMI 29.8
[2021-06-06 10:05] LABS: Hematocrit 40.5 % (40-54); Hemoglobin 12.9 g/dL (13.0-16.5); Mean Corp Hgb Conc 31.9 g/dL (32-36); Mean Corpuscular Hgb 29.7 pg (27.0-32.0); Mean Corpuscular Volume 93.1 fL (80-94); Mean Platelet Vol. 9.8 fl (6.2-12.0); Platelet Count 177 K/mm3 (150-450); RBC Distribution Width CV 12.9 % (11.6-14.6); Red Blood Count 4.35 M/mm3 (4.6-6.2); White Blood Count 4.3 K/mm3 (4.4-11.0)
[2021-06-06 10:50] LABS: Albumin, Serum 3.4 g/dL (3.2-5.0); BUN 13 mg/dL (7-18); BUN/Creat Ratio 9.8 RATIO (10-20); Calcium,Total 8.6 mg/dL (8.5-10.1); Chloride 105 mmol/L (98-107); Creatinine, Serum 1.33 mg/dL (0.70-1.30); EST Glomerular Filtration Rate 55 mL/min (>60); Est Glom Filt Rate - Afr Amer 66 mL/min (>60); Glucose 95 mg/dL (74-106); Phosphorus 3.1 mg/dL (2.5-4.9); Potassium 3.9 mmol/L (3.5-5.1); Sodium Level 138 mmol/L (136-145)
[2021-06-10 14:08] LABS: PROELU- Albumin, Urine 61.8 % (.); PROELU- Alpha-1-Globulin,Ur 4.4 % (.); PROELU- Alpha-2-Globulin,Ur 6.1 % (.); PROELU- Beta Globulin, Ur 14.8 % (.); PROELU- Gamma Globulin, Ur 12.8 % (.); Total Protein, Ur 59.5 mg/dL (Not Estab.)
== END ==
PROVIDERS: PCP Family Medicine Geriatric Medicine; Referring Provider Internal Medicine Nephrology; Visit Provider Internal Medicine Nephrology
DX: N18.31 Chronic kidney disease, stage 3a (principal); D64.9 Anemia, unspecified; R80.9 Proteinuria, unspecified
CPT/HCPCS: 36415; 80069; 84166; 85027

== ENCOUNTER → 2021-06-18 11:49 | Outpatient (CLI) | payer MEDICARE, OTHER, SELFPAY ==
[2021-06-14 14:45] VITALS: BMI 29.5
[2021-06-18 16:45] LABS: Absolute Lymphocyte Count 1.98 X10^3/uL (0.83-4.51); Absolute Neutrophil Count 2.1 X10^3/uL (2.0-7.7); Basophil# 0.01 X10^3/uL; Basophil% 0.2 % (0-1); Eosinophil# 0.04 X10^3/uL; Eosinophils% 0.8 % (0-5); Hematocrit 39.9 % (40-54); Lymphocyte # 1.98 X10^3/ul (0.83-4.51); Lymphocyte % 41.7 % (19-41); Mean Corp Hgb Conc 32.6 g/dL (32-36); Mean Corpuscular Hgb 29.7 pg (27.0-32.0); Mean Corpuscular Volume 91.3 fL (80-94); Mean Platelet Vol. 10.3 fl (6.2-12.0); Monocyte# 0.63 X10^3/uL; Monocyte% 13.3 % (0-10); NRBC Flagged by Analyzer 0 % (0-5); Neutrophil # 2.08 X10^3/uL (2.7-7.7); Neutrophil % 43.8 % (47-70); Platelet Count 204 K/mm3 (150-450); Red Blood Count 4.37 M/mm3 (4.6-6.2); White Blood Count 4.8 K/mm3 (4.4-11.0)
[2021-06-18 17:23] LABS: Vitamin D,25 Hydroxy 19.9 ng/mL
[2021-06-18 17:33] LABS: ALB/GLOB Ratio 0.8 RATIO (0.9-2.4); AST(SGOT) 19 U/L (15-37); Alanine Aminotransfer ALT/SGPT 20 U/L (16-61); Albumin, Serum 3.4 g/dL (3.2-5.0); Alkaline Phosphatase 99 U/L (45-117); Anion Gap 8 (5-15); BUN 13 mg/dL (7-18); BUN/Creat Ratio 10.5 RATIO (10-20); Calcium,Total 8.4 mg/dL (8.5-10.1); Chloride 105 mmol/L (98-107); Creatinine, Serum 1.24 mg/dL (0.70-1.30); EST Glomerular Filtration Rate 59 mL/min (>60); Est Glom Filt Rate - Afr Amer 72 mL/min (>60); Globulin 4.4 g/dL (2.2-4.2); Glucose 86 mg/dL (74-106); Protein, Total 7.8 g/dL (6.4-8.2); Sodium Level 138 mmol/L (136-145); Thyroid Stim Hormone (TSH) 2.18 uIU/mL (0.358-3.74)
== END ==
PROVIDERS: PCP Family Medicine Geriatric Medicine; Visit Provider Family Medicine Geriatric Medicine
DX: I10 Essential (primary) hypertension (principal); E55.9 Vitamin D deficiency, unspecified
CPT/HCPCS: 36415; 80053; 82306; 84443; 85025

== ENCOUNTER → 2021-09-17 15:17 | Outpatient (CLI) | payer MEDICARE, OTHER, SELFPAY ==
[2021-09-17 17:12] LABS: Absolute Lymphocyte Count 1.89 X10^3/uL (0.83-4.51); Absolute Neutrophil Count 2.2 X10^3/uL (2.0-7.7); Basophil# 0.01 X10^3/uL; Basophil% 0.2 % (0-1); Eosinophil# 0.03 X10^3/uL; Eosinophils% 0.6 % (0-5); Hematocrit 40.2 % (40-54); Lymphocyte # 1.89 X10^3/ul (0.83-4.51); Lymphocyte % 39.4 % (19-41); Mean Corp Hgb Conc 32.3 g/dL (32-36); Mean Corpuscular Hgb 30.6 pg (27.0-32.0); Mean Corpuscular Volume 94.6 fL (80-94); Mean Platelet Vol. 10.4 fl (6.2-12.0); Monocyte# 0.68 X10^3/uL; Monocyte% 14.2 % (0-10); NRBC Flagged by Analyzer 0 % (0-5); Neutrophil # 2.18 X10^3/uL (2.7-7.7); Neutrophil % 45.4 % (47-70); Platelet Count 161 K/mm3 (150-450); RBC Distribution Width CV 13.5 % (11.6-14.6); Red Blood Count 4.25 M/mm3 (4.6-6.2); White Blood Count 4.8 K/mm3 (4.4-11.0)
[2021-09-17 17:25] LABS: Vitamin D,25 Hydroxy 18.5 ng/mL
[2021-09-17 17:38] LABS: ALB/GLOB Ratio 0.7 RATIO (0.9-2.4); AST(SGOT) 20 U/L (15-37); Alanine Aminotransfer ALT/SGPT 18 U/L (16-61); Albumin, Serum 3.2 g/dL (3.2-5.0); Alkaline Phosphatase 101 U/L (45-117); Anion Gap 9 (5-15); BUN 18 mg/dL (7-18); Calcium,Total 8.3 mg/dL (8.5-10.1); Chloride 105 mmol/L (98-107); Creatinine, Serum 1.38 mg/dL (0.70-1.30); EST Glomerular Filtration Rate 52 mL/min (>60); Est Glom Filt Rate - Afr Amer 63 mL/min (>60); Globulin 4.4 g/dL (2.2-4.2); Glucose 123 mg/dL (74-106); Potassium 3.4 mmol/L (3.5-5.1); Protein, Total 7.6 g/dL (6.4-8.2); Sodium Level 141 mmol/L (136-145)
== END ==
PROVIDERS: PCP Family Medicine Geriatric Medicine; Visit Provider Family Medicine Geriatric Medicine
DX: E55.9 Vitamin D deficiency, unspecified (principal); I10 Essential (primary) hypertension
CPT/HCPCS: 36415; 80053; 82306; 84443; 85025

== ENCOUNTER → 2021-11-11 15:48 | Outpatient (CLI) | payer MEDICARE, OTHER, SELFPAY ==
[2021-02-18 14:45] VITALS: BMI 29.8
[2021-11-11 16:30] LABS: Protein, Urine (Random) 183.5 mg/dL (<11.9); Protein:Creat Ratio 1869 mg/g CRE (0-200)
[2021-11-11 16:58] LABS: Albumin, Serum 3.5 g/dL (3.2-5.0); BUN 14 mg/dL (7-18); BUN/Creat Ratio 12.4 RATIO (10-20); Calcium,Total 8.6 mg/dL (8.5-10.1); Chloride 103 mmol/L (98-107); Creatinine, Serum 1.13 mg/dL (0.70-1.30); EST Glomerular Filtration Rate 66 mL/min (>60); Est Glom Filt Rate - Afr Amer 80 mL/min (>60); Glucose 89 mg/dL (74-106); Phosphorus 3.8 mg/dL (2.5-4.9); Potassium 3.6 mmol/L (3.5-5.1); Sodium Level 140 mmol/L (136-145)
== END ==
PROVIDERS: PCP Family Medicine Geriatric Medicine; Visit Provider Internal Medicine Nephrology
DX: N18.31 Chronic kidney disease, stage 3a (principal); D47.2 Monoclonal gammopathy
CPT/HCPCS: 36415; 80069; 82570; 84156

== ENCOUNTER 2022-03-04 15:22 | Outpatient (CLI) | payer MEDICARE, OTHER, SELFPAY ==
[2022-03-04 17:11] LABS: Absolute Lymphocyte Count 1.88 X10^3/uL (0.83-4.51); Absolute Neutrophil Count 1.7 X10^3/uL (2.0-7.7); Basophil# 0.02 X10^3/uL; Basophil% 0.5 % (0-1); Eosinophil# 0.04 X10^3/uL; Hematocrit 40.3 % (40-54); Hemoglobin 13.3 g/dL (13.0-16.5); Lymphocyte # 1.88 X10^3/ul (0.83-4.51); Lymphocyte % 45.2 % (19-41); Mean Corpuscular Hgb 30.4 pg (27.0-32.0); Mean Platelet Vol. 9.9 fl (6.2-12.0); Monocyte# 0.54 X10^3/uL; NRBC Flagged by Analyzer 0 % (0-5); Neutrophil # 1.67 X10^3/uL (2.7-7.7); Neutrophil % 40.1 % (47-70); Platelet Count 173 K/mm3 (150-450); RBC Distribution Width CV 12.8 % (11.6-14.6); RBC Distribution Width SD 42.7 fl (35.1-43.9); Red Blood Count 4.38 M/mm3 (4.6-6.2); White Blood Count 4.2 K/mm3 (4.4-11.0)
[2022-03-04 17:28] LABS: Vitamin D,25 Hydroxy 23.2 ng/mL
[2022-03-04 17:41] LABS: ALB/GLOB Ratio 0.9 RATIO (0.9-2.4); AST(SGOT) 15 U/L (15-37); Alanine Aminotransfer ALT/SGPT 18 U/L (16-61); Albumin, Serum 3.4 g/dL (3.2-5.0); Alkaline Phosphatase 96 U/L (45-117); Anion Gap 6 (5-15); BUN 12 mg/dL (7-18); BUN/Creat Ratio 7.9 RATIO (10-20); Calcium,Total 8.2 mg/dL (8.5-10.1); Chloride 104 mmol/L (98-107); Creatinine, Serum 1.51 mg/dL (0.70-1.30); EST Glomerular Filtration Rate 47 mL/min (>60); Est Glom Filt Rate - Afr Amer 57 mL/min (>60); Globulin 3.9 g/dL (2.2-4.2); Glucose 122 mg/dL (74-106); Potassium 3.8 mmol/L (3.5-5.1); Protein, Total 7.3 g/dL (6.4-8.2); Sodium Level 138 mmol/L (136-145); Thyroid Stim Hormone (TSH) 2.06 uIU/mL (0.358-3.74)
== END 2022-03-04 23:59 | disposition home or self-care (01) ==
LOC: POLAB3 15:24
PROVIDERS: PCP Family Medicine Geriatric Medicine; Visit Provider Family Medicine Geriatric Medicine
DX: E55.9 Vitamin D deficiency, unspecified (principal); I10 Essential (primary) hypertension
CPT/HCPCS: 36415; 80053; 82306; 84443; 85025

== ENCOUNTER → 2022-06-19 | Outpatient (CLI) | payer MEDICARE, OTHER, SELFPAY ==
[2022-06-19 17:22] LABS: Absolute Lymphocyte Count 1.86 X10^3/uL (0.83-4.51); Absolute Neutrophil Count 1.8 X10^3/uL (2.0-7.7); Basophil# 0.02 X10^3/uL; Basophil% 0.4 % (0-1); Eosinophil# 0.12 X10^3/uL; Eosinophils% 2.6 % (0-5); Hematocrit 39.8 % (40-54); Hemoglobin 13.3 g/dL (13.0-16.5); Lymphocyte # 1.86 X10^3/ul (0.83-4.51); Lymphocyte % 40.6 % (19-41); Mean Corp Hgb Conc 33.4 g/dL (32-36); Mean Corpuscular Hgb 30.4 pg (27.0-32.0); Mean Corpuscular Volume 90.9 fL (80-94); Monocyte# 0.75 X10^3/uL; Monocyte% 16.4 % (0-10); NRBC Flagged by Analyzer 0 % (0-5); Neutrophil # 1.82 X10^3/uL (2.7-7.7); Neutrophil % 39.8 % (47-70); Platelet Count 175 K/mm3 (150-450); RBC Distribution Width CV 13.3 % (11.6-14.6); RBC Distribution Width SD 44.1 fl (35.1-43.9); Red Blood Count 4.38 M/mm3 (4.6-6.2); White Blood Count 4.6 K/mm3 (4.4-11.0)
[2022-06-19 17:37] LABS: Vitamin D,25 Hydroxy 24.2 ng/mL
[2022-06-19 17:46] LABS: ALB/GLOB Ratio 0.8 RATIO (0.9-2.4); AST(SGOT) 18 U/L (15-37); Alanine Aminotransfer ALT/SGPT 18 U/L (16-61); Albumin, Serum 3.3 g/dL (3.2-5.0); Alkaline Phosphatase 95 U/L (45-117); Anion Gap 7 (5-15); BUN 13 mg/dL (7-18); BUN/Creat Ratio 10.3 RATIO (10-20); Calcium,Total 8.6 mg/dL (8.5-10.1); Chloride 103 mmol/L (98-107); Creatinine, Serum 1.26 mg/dL (0.70-1.30); EST Glomerular Filtration Rate 58 mL/min (>60); Est Glom Filt Rate - Afr Amer 70 mL/min (>60); Globulin 4.1 g/dL (2.2-4.2); Glucose 96 mg/dL (74-106); Potassium 3.8 mmol/L (3.5-5.1); Protein, Total 7.4 g/dL (6.4-8.2); Sodium Level 137 mmol/L (136-145); Thyroid Stim Hormone (TSH) 2.13 uIU/mL (0.358-3.74)
== END | disposition home or self-care (01) ==
LOC: POLAB3 14:29
PROVIDERS: PCP Family Medicine Geriatric Medicine; Visit Provider Family Medicine Geriatric Medicine
DX: I10 Essential (primary) hypertension (principal); E55.9 Vitamin D deficiency, unspecified
CPT/HCPCS: 36415; 80053; 82306; 84443; 85025

== ENCOUNTER → 2022-07-08 | Outpatient (CLI) | payer MEDICARE, OTHER, SELFPAY ==
[2022-07-08 15:51] LABS: Absolute Lymphocyte Count 1.83 X10^3/uL (0.83-4.51); Absolute Neutrophil Count 1.5 X10^3/uL (2.0-7.7); Basophil# 0.01 X10^3/uL; Basophil% 0.2 % (0-1); Eosinophil# 0.17 X10^3/uL; Hematocrit 39.4 % (40-54); Hemoglobin 12.8 g/dL (13.0-16.5); Lymphocyte # 1.83 X10^3/ul (0.83-4.51); Lymphocyte % 43.6 % (19-41); Mean Corp Hgb Conc 32.5 g/dL (32-36); Mean Corpuscular Volume 92.5 fL (80-94); Mean Platelet Vol. 9.2 fl (6.2-12.0); Monocyte% 16.7 % (0-10); NRBC Flagged by Analyzer 0 % (0-5); Neutrophil # 1.47 X10^3/uL (2.7-7.7); Platelet Count 163 K/mm3 (150-450); RBC Distribution Width CV 13.1 % (11.6-14.6); RBC Distribution Width SD 44.1 fl (35.1-43.9); Red Blood Count 4.26 M/mm3 (4.6-6.2); White Blood Count 4.2 K/mm3 (4.4-11.0)
[2022-07-08 16:26] LABS: ALB/GLOB Ratio 0.8 RATIO (0.9-2.4); AST(SGOT) 18 U/L (15-37); Alanine Aminotransfer ALT/SGPT 15 U/L (16-61); Albumin, Serum 3.2 g/dL (3.2-5.0); Alkaline Phosphatase 95 U/L (45-117); Anion Gap 6 (5-15); BUN 14 mg/dL (7-18); BUN/Creat Ratio 10.4 RATIO (10-20); Calcium,Total 8.7 mg/dL (8.5-10.1); Chloride 105 mmol/L (98-107); Creatinine, Serum 1.34 mg/dL (0.70-1.30); EST Glomerular Filtration Rate 54 mL/min (>60); Est Glom Filt Rate - Afr Amer 65 mL/min (>60); Ferritin 54 ng/mL (26-388); Glucose 123 mg/dL (74-106); Iron 51 ug/dL (65-175); Iron Binding Capacity,Total 250 ug/dL (250-450); PERCENT IRON SATURATION 20.4 % (15.0-55.0); Potassium 3.7 mmol/L (3.5-5.1); Protein, Total 7.2 g/dL (6.4-8.2); Sodium Level 140 mmol/L (136-145); Vitamin B12 1123 pg/mL (211-911)
[2022-07-10 15:08] LABS: Albumin 3.4 g/dL (2.9-4.4); Alpha-1-Globulins 0.2 g/dL (0.0-0.4); Alpha-2-Globulins 0.9 g/dL (0.4-1.0); Gamma Globulin 1.3 g/dL (0.4-1.8); Immunoglobulin A 464 mg/dL (61-437); Immunoglobulin G 1344 mg/dL (603-1613); Immunoglobulin M 148 mg/dL (15-143); PROEL- TOTAL PROTEIN 6.7 g/dL (6.0-8.5)
== END | disposition home or self-care (01) ==
LOC: LAB 15:32
PROVIDERS: PCP Family Medicine Geriatric Medicine; Referring Provider Internal Medicine Hematology & Oncology; Visit Provider Internal Medicine Hematology & Oncology
DX: D50.0 Iron deficiency anemia secondary to blood loss (chronic) (principal); D47.2 Monoclonal gammopathy; D64.9 Anemia, unspecified
CPT/HCPCS: 36415; 80053; 82607; 82728; 82784; 83540; 83550; 84165; 85025; 86334

== ENCOUNTER → 2022-08-12 | Outpatient (CLI) | payer MEDICARE, OTHER, SELFPAY ==
[2022-08-12 10:44] LABS: Hematocrit 41.8 % (40-54); Hemoglobin 13.6 g/dL (13.0-16.5); Mean Corp Hgb Conc 32.5 g/dL (32-36); Mean Corpuscular Hgb 30.9 pg (27.0-32.0); Mean Platelet Vol. 9.6 fl (6.2-12.0); Platelet Count 167 K/mm3 (150-450); RBC Distribution Width CV 13.2 % (11.6-14.6); RBC Distribution Width SD 46.3 fl (35.1-43.9); White Blood Count 4.6 K/mm3 (4.4-11.0)
[2022-08-12 11:12] LABS: Albumin, Serum 3.3 g/dL (3.2-5.0); BUN 10 mg/dL (7-18); BUN/Creat Ratio 7.7 RATIO (10-20); Calcium,Total 8.9 mg/dL (8.5-10.1); Chloride 103 mmol/L (98-107); EST Glomerular Filtration Rate 56 mL/min (>60); Est Glom Filt Rate - Afr Amer 68 mL/min (>60); Glucose 127 mg/dL (74-106); Phosphorus 2.9 mg/dL (2.5-4.9); Potassium 3.8 mmol/L (3.5-5.1); Sodium Level 140 mmol/L (136-145)
== END | disposition home or self-care (01) ==
LOC: LAB.FUTURE 10:15 → LAB 08-13 06:08
PROVIDERS: PCP Family Medicine Geriatric Medicine; Referring Provider Internal Medicine Nephrology; Visit Provider Internal Medicine Nephrology
DX: N18.31 Chronic kidney disease, stage 3a (principal); D64.9 Anemia, unspecified
CPT/HCPCS: 36415; 80069; 85027

== ENCOUNTER → 2022-10-02 | Outpatient (CLI) | payer MEDICARE, OTHER, SELFPAY ==
--- NOTE | 2022-10-02 14:48 | ECHOCS_ITS ---
Reason For Study: Valve Replacement Procedure This was a 2D Doppler, Color Flow transthoracic echocardiogram. The study was technically difficult. Contrast injection was performed. Exam performed in department. Left Ventricle Normal size and thickness. The left ventricular ejection fraction is 65 %. Diastolic function is indeterminate. Right Ventricle Normal right ventricle. Atria The left atrium is moderately enlarged. Mitral Valve Moderate diffuse mitral valve calcification. Tricuspid Valve The tricuspid valve is not well visualized. Aortic Valve The aortic valve is not well visualized. Mean aortic valve gradient 9.6 mmHg. Pulmonic Valve The pulmonic valve is not well visualized. Great Vessels Aortic root not well visualized. Pericardium/Pleural No pericardial effusion. Medication 20 gauge I.V. with prn adaptor inserted into left arm. Diluted definity 2ml given slow IV push to enhance endocardial definition. MMode/2D Measurements & Calculations LVOT diam: 2.0 cm LA dimension: 4.5 cm LAV(MOD-bp): 75.4 ml LVOT area: 3.2 cm2 LAV(MOD-bp) Indexed: 36.5 ml/m2 LAV(MOD-sp2): 70.9 ml LAV(MOD-sp4): 72.7 ml LA A4 area: 22.0 cm2 Time Measurements MV dec time: 0.21 sec Doppler Measurements & Calculations MV E max ronn: 119.7 cm/sec Lat Peak E' Ronn: 8.2 cm/sec Med Peak E' Ronn: 6.1 cm/sec MV A max ronn: 101.5 cm/sec E/E' lat: 14.5 E/E' med: 19.6 MV E/A: 1.2 MV V2 max: 127.5 cm/sec MV P1/2t max ronn: 125.5 cm/sec Ao V2 max: 219.1 cm/sec MV max P.5 mmHg MV P1/2t: 70.9 msec Ao max P.3 mmHg MV V2 mean: 68.8 cm/sec Ao V2 mean: 143.1 cm/sec MV mean P.3 mmHg MV dec slope: 518.3 cm/sec2 Ao mean P.6 mmHg MV V2 VTI: 48.4 cm MVA(P1/2t): 3.1 cm2 Ao V2 VTI: 44.2 cm MVA(VTI): 0.90 cm2 RAJIV(I,D): 0.99 cm2 RAJIV(V,D): 1.2 cm2 LV V1 max: 83.7 cm/sec SV(LVOT): 43.7 ml PA V2 max: 122.0 cm/sec LV V1 max P.8 mmHg LV V1 mean P.4 mmHg LV V1 mean: 54.4 cm/sec LV V1 VTI: 13.9 cm ECHO/Echo Complete W/ Contrast Interpretation Summary The left ventricular ejection fraction is 65 %. Diastolic function is indeterminate. The left atrium is moderately enlarged. Moderate diffuse mitral valve calcification. Mean aortic valve gradient 9.6 mmHg. Not significantly different from previous study dated 12/20/2019. Ordering Physician: La Hernández Referring Physician: Husam Khan Chi Performed By: Gorge Dejesus RCS
== END | disposition home or self-care (01) ==
LOC: CVS 14:47
PROVIDERS: PCP Family Medicine Geriatric Medicine; Referring Provider Physician Assistant Medical; Visit Provider Physician Assistant Medical
DX: I25.10 Atherosclerotic heart disease of native coronary artery without angina pectoris (principal)
CPT/HCPCS: 93306; Q9957; A4216; C8929

== ENCOUNTER → 2022-10-20 | Outpatient (CLI) | payer MEDICARE, OTHER, SELFPAY | END | disposition home or self-care (01) | LOC: PSN 14:06 | PROVIDERS: PCP Family Medicine Geriatric Medicine; Referring Provider Family Medicine Geriatric Medicine; Visit Provider Family Medicine Geriatric Medicine | DX: R68.83 Chills (without fever) (principal) | CPT/HCPCS: 87635; 87804; 87807; C9803; U0003; U0005 ==

== ENCOUNTER → 2022-12-25 | Outpatient (CLI) | payer MEDICARE, OTHER, SELFPAY ==
[2022-12-25 17:16] LABS: Absolute Lymphocyte Count 2.24 X10^3/uL (0.83-4.51); Absolute Neutrophil Count 1.6 X10^3/uL (2.0-7.7); Basophil# 0.01 X10^3/uL; Basophil% 0.2 % (0-1); Eosinophil# 0.06 X10^3/uL; Eosinophils% 1.3 % (0-5); Hematocrit 41.6 % (40-54); Hemoglobin 13.4 g/dL (13.0-16.5); Lymphocyte # 2.24 X10^3/ul (0.83-4.51); Lymphocyte % 50.2 % (19-41); Mean Corp Hgb Conc 32.2 g/dL (32-36); Mean Corpuscular Hgb 30.2 pg (27.0-32.0); Mean Corpuscular Volume 93.9 fL (80-94); Mean Platelet Vol. 9.6 fl (6.2-12.0); Monocyte# 0.55 X10^3/uL; Monocyte% 12.3 % (0-10); NRBC Flagged by Analyzer 0 % (0-5); Neutrophil # 1.59 X10^3/uL (2.7-7.7); Neutrophil % 35.8 % (47-70); Platelet Count 198 K/mm3 (150-450); RBC Distribution Width CV 13.2 % (11.6-14.6); RBC Distribution Width SD 45.6 fl (35.1-43.9); Red Blood Count 4.43 M/mm3 (4.6-6.2); White Blood Count 4.5 K/mm3 (4.4-11.0)
[2022-12-25 17:53] LABS: Vitamin D,25 Hydroxy 14.6 ng/mL
[2022-12-25 17:54] LABS: ALB/GLOB Ratio 0.8 RATIO (0.9-2.4); AST(SGOT) 17 U/L (15-37); Alanine Aminotransfer ALT/SGPT 20 U/L (16-61); Albumin, Serum 3.4 g/dL (3.2-5.0); Alkaline Phosphatase 90 U/L (45-117); Anion Gap 9 (5-15); BUN 13 mg/dL (7-18); BUN/Creat Ratio 9.9 RATIO (10-20); Calcium,Total 8.8 mg/dL (8.5-10.1); Chloride 103 mmol/L (98-107); Creatinine, Serum 1.31 mg/dL (0.70-1.30); EST Glomerular Filtration Rate 55 mL/min (>60); Est Glom Filt Rate - Afr Amer 67 mL/min (>60); Globulin 4.1 g/dL (2.2-4.2); Glucose 101 mg/dL (74-106); Potassium 3.8 mmol/L (3.5-5.1); Protein, Total 7.5 g/dL (6.4-8.2); Sodium Level 138 mmol/L (136-145); Thyroid Stim Hormone (TSH) 1.95 uIU/mL (0.358-3.74)
== END | disposition home or self-care (01) ==
LOC: POLAB3 15:34
PROVIDERS: PCP Family Medicine Geriatric Medicine; Visit Provider Family Medicine Geriatric Medicine
DX: I10 Essential (primary) hypertension (principal); E55.9 Vitamin D deficiency, unspecified
CPT/HCPCS: 36415; 80053; 82306; 84443; 85025

== ENCOUNTER → 2023-02-10 | Outpatient (CLI) | payer MEDICARE, OTHER, SELFPAY ==
[2023-02-10 19:09] LABS: Protein, Urine (Random) 57.7 mg/dL (<11.9); Protein:Creat Ratio 314 mg/g CRE (0-200)
[2023-02-10 19:50] LABS: Color, Urine Yellow (Yellow); Glucose, Dipstick Normal (Normal); Ketone-Dipstick Negative (Negative); Leukocyte Esterase-Dipstick Negative /ul (Negative); Nitrite-Dipstick Negative (Negative); Occult Blood-Urine Negative /ul (Negative); Protein-Dipstick 30 mg/dl (Negative); Specific Gravity, Urine 1.015 (1.002-1.030); Urine Bilirubin Dipstick Negative (Negative); Urine Clarity Clear (Clear); Urine Urobilinogen Normal (Normal)
[2023-02-11 12:29] LABS: Mucous, Urine 0 SEEN /hpf (<or=2+); Red Blood Cells-Urine 0 SEEN /hpf (0-5); Squamous Epithelial Cells - UA 0 SEEN /hpf (0-5); White Blood Cells 0 SEEN /hpf (0-5)
[2023-02-11 12:48] LABS: Amorphous Sediment 2+; Bacteria 1+ /hpf (None Seen)
[2023-02-13 15:08] LABS: PROELU- Albumin, Urine 61.3 % (.); PROELU- Alpha-1-Globulin,Ur 4.1 % (.); PROELU- Alpha-2-Globulin,Ur 7.5 % (.); PROELU- Beta Globulin, Ur 13.1 % (.); PROELU- Gamma Globulin, Ur 13.9 % (.); Total Protein, Ur 54.4 mg/dL (Not Estab.)
== END | disposition home or self-care (01) ==
PROVIDERS: PCP Family Medicine Geriatric Medicine; Visit Provider Internal Medicine Nephrology
DX: D47.2 Monoclonal gammopathy (principal); R82.998 Other abnormal findings in urine
CPT/HCPCS: 81001; 81002; 82570; 84156; 84166; 87086; 87088

== ENCOUNTER → 2023-06-25 | Outpatient (CLI) | payer MEDICARE, OTHER, SELFPAY ==
[2023-06-25 17:13] LABS: Absolute Lymphocyte Count 2.16 X10^3/uL (0.83-4.51); Absolute Neutrophil Count 1.9 X10^3/uL (2.0-7.7); Basophil# 0.02 X10^3/uL; Basophil% 0.4 % (0-1); Eosinophil# 0.07 X10^3/uL; Eosinophils% 1.5 % (0-5); Hematocrit 38.1 % (40-54); Lymphocyte # 2.16 X10^3/ul (0.83-4.51); Lymphocyte % 45.6 % (19-41); Mean Corp Hgb Conc 34.1 g/dL (32-36); Mean Corpuscular Hgb 32.2 pg (27.0-32.0); Mean Corpuscular Volume 94.3 fL (80-94); Monocyte% 12.7 % (0-10); NRBC Flagged by Analyzer 0 % (0-5); Neutrophil # 1.88 X10^3/uL (2.7-7.7); Neutrophil % 39.6 % (47-70); Platelet Count 187 K/mm3 (150-450); RBC Distribution Width CV 13.4 % (11.6-14.6); RBC Distribution Width SD 46.2 fl (35.1-43.9); Red Blood Count 4.04 M/mm3 (4.6-6.2); White Blood Count 4.7 K/mm3 (4.4-11.0)
[2023-06-25 18:41] LABS: Vitamin D,25 Hydroxy 13.2 ng/mL
[2023-06-25 19:05] LABS: ALB/GLOB Ratio 0.8 RATIO (0.9-2.4); AST(SGOT) 19 U/L (15-37); Alanine Aminotransfer ALT/SGPT 15 U/L (16-61); Albumin, Serum 3.2 g/dL (3.2-5.0); Alkaline Phosphatase 94 U/L (45-117); Anion Gap 8 (5-15); BUN 16 mg/dL (7-18); BUN/Creat Ratio 12.6 RATIO (10-20); Calcium,Total 8.2 mg/dL (8.5-10.1); Chloride 108 mmol/L (98-107); Creatinine, Serum 1.27 mg/dL (0.70-1.30); EST Glomerular Filtration Rate 57 mL/min (>60); Est Glom Filt Rate - Afr Amer 69 mL/min (>60); Globulin 4.2 g/dL (2.2-4.2); Glucose 103 mg/dL (74-106); Potassium 3.7 mmol/L (3.5-5.1); Protein, Total 7.4 g/dL (6.4-8.2); Sodium Level 140 mmol/L (136-145); Thyroid Stim Hormone (TSH) 2.81 uIU/mL (0.358-3.74)
== END | disposition home or self-care (01) ==
PROVIDERS: PCP Family Medicine Geriatric Medicine; Visit Provider Family Medicine Geriatric Medicine
DX: I10 Essential (primary) hypertension (principal); E55.9 Vitamin D deficiency, unspecified
CPT/HCPCS: 36415; 80053; 82306; 84443; 85025

== ENCOUNTER 2023-07-07 15:51 | Outpatient (CLI) | payer MEDICARE, OTHER, SELFPAY ==
[2023-07-07 17:17] LABS: Absolute Neutrophil Count 1.4 X10^3/uL (2.0-7.7); Basophil# 0.01 X10^3/uL; Basophil% 0.2 % (0-1); Eosinophil# 0.07 X10^3/uL; Eosinophils% 1.6 % (0-5); Hematocrit 39.3 % (40-54); Hemoglobin 12.6 g/dL (13.0-16.5); Lymphocyte % 51.5 % (19-41); Mean Corp Hgb Conc 32.1 g/dL (32-36); Mean Corpuscular Hgb 30.6 pg (27.0-32.0); Mean Corpuscular Volume 95.4 fL (80-94); Mean Platelet Vol. 9.8 fl (6.2-12.0); Monocyte# 0.62 X10^3/uL; Monocyte% 14.5 % (0-10); NRBC Flagged by Analyzer 0 % (0-5); Neutrophil # 1.36 X10^3/uL (2.7-7.7); Platelet Count 168 K/mm3 (150-450); RBC Distribution Width CV 13.5 % (11.6-14.6); Red Blood Count 4.12 M/mm3 (4.6-6.2); White Blood Count 4.3 K/mm3 (4.4-11.0)
[2023-07-07 17:57] LABS: ALB/GLOB Ratio 0.8 RATIO (0.9-2.4); AST(SGOT) 16 U/L (15-37); Alanine Aminotransfer ALT/SGPT 13 U/L (16-61); Albumin, Serum 3.1 g/dL (3.2-5.0); Alkaline Phosphatase 94 U/L (45-117); Anion Gap 4 (5-15); BUN 12 mg/dL (7-18); BUN/Creat Ratio 9.8 RATIO (10-20); Calcium,Total 8.5 mg/dL (8.5-10.1); Chloride 106 mmol/L (98-107); Creatinine, Serum 1.22 mg/dL (0.70-1.30); EST Glomerular Filtration Rate 60 mL/min (>60); Est Glom Filt Rate - Afr Amer 73 mL/min (>60); Ferritin 51 ng/mL (26-388); Globulin 3.7 g/dL (2.2-4.2); Glucose 112 mg/dL (74-106); Iron 64 ug/dL (65-175); Iron Binding Capacity,Total 247 ug/dL (250-450); PERCENT IRON SATURATION 25.9 % (15.0-55.0); Potassium 3.3 mmol/L (3.5-5.1); Protein, Total 6.8 g/dL (6.4-8.2); Sodium Level 139 mmol/L (136-145)
== END 2023-07-07 23:59 | disposition home or self-care (01) ==
LOC: LAB 15:54
PROVIDERS: PCP Family Medicine Geriatric Medicine; Referring Provider Internal Medicine Hematology & Oncology; Visit Provider Internal Medicine Hematology & Oncology
DX: D47.2 Monoclonal gammopathy (principal)
CPT/HCPCS: 36415; 80053; 82728; 83540; 83550; 85025

== ENCOUNTER → 2023-09-02 | Outpatient (CLI) | payer MEDICARE, OTHER, SELFPAY ==
[2023-09-02 11:03] LABS: Protein, Urine (Random) 49.5 mg/dL (<11.9); Protein:Creat Ratio 206 mg/g CRE (0-200)
[2023-09-02 11:14] LABS: Albumin, Serum 3.5 g/dL (3.2-5.0); BUN 18 mg/dL (7-18); BUN/Creat Ratio 13.6 RATIO (10-20); Calcium,Total 8.9 mg/dL (8.5-10.1); Chloride 107 mmol/L (98-107); Creatinine, Serum 1.32 mg/dL (0.70-1.30); EST Glomerular Filtration Rate 55 mL/min (>60); Est Glom Filt Rate - Afr Amer 66 mL/min (>60); Glucose 102 mg/dL (74-106); Phosphorus 3.3 mg/dL (2.5-4.9); Potassium 4.2 mmol/L (3.5-5.1); Sodium Level 139 mmol/L (136-145)
== END | disposition home or self-care (01) ==
LOC: LAB 10:20
PROVIDERS: PCP Family Medicine Geriatric Medicine; Visit Provider Internal Medicine Nephrology
DX: N18.31 Chronic kidney disease, stage 3a (principal); D47.2 Monoclonal gammopathy
CPT/HCPCS: 36415; 80069; 82570; 84156

== ENCOUNTER → 2023-12-23 | Outpatient (CLI) | payer MEDICARE, OTHER, SELFPAY ==
[2023-12-23 17:19] LABS: Absolute Lymphocyte Count 2.36 X10^3/uL (0.83-4.51); Absolute Neutrophil Count 1.8 X10^3/uL (2.0-7.7); Basophil# 0.02 X10^3/uL; Basophil% 0.4 % (0-1); Eosinophil# 0.04 X10^3/uL; Eosinophils% 0.8 % (0-5); Hemoglobin 12.3 g/dL (13.0-16.5); Lymphocyte # 2.36 X10^3/ul (0.83-4.51); Lymphocyte % 47.9 % (19-41); Mean Corp Hgb Conc 32.4 g/dL (32-36); Mean Corpuscular Hgb 30.6 pg (27.0-32.0); Mean Corpuscular Volume 94.5 fL (80-94); Monocyte# 0.65 X10^3/uL; Monocyte% 13.2 % (0-10); NRBC Flagged by Analyzer 0 % (0-5); Neutrophil # 1.84 X10^3/uL (2.7-7.7); Neutrophil % 37.3 % (47-70); Platelet Count 181 K/mm3 (150-450); RBC Distribution Width CV 13.7 % (11.6-14.6); RBC Distribution Width SD 47.4 fl (35.1-43.9); Red Blood Count 4.02 M/mm3 (4.6-6.2); White Blood Count 4.9 K/mm3 (4.4-11.0)
[2023-12-23 17:37] LABS: ALB/GLOB Ratio 0.8 RATIO (0.9-2.4); AST(SGOT) 14 U/L (15-37); Alanine Aminotransfer ALT/SGPT 14 U/L (16-61); Albumin, Serum 3.2 g/dL (3.2-5.0); Alkaline Phosphatase 84 U/L (45-117); Anion Gap 1 (5-15); BUN 17 mg/dL (7-18); BUN/Creat Ratio 12.3 RATIO (10-20); Calcium,Total 8.5 mg/dL (8.5-10.1); Chloride 110 mmol/L (98-107); Creatinine, Serum 1.38 mg/dL (0.70-1.30); EST Glomerular Filtration Rate 52 mL/min (>60); Est Glom Filt Rate - Afr Amer 63 mL/min (>60); Globulin 3.8 g/dL (2.2-4.2); Glucose 88 mg/dL (74-106); Potassium 3.5 mmol/L (3.5-5.1); Sodium Level 141 mmol/L (136-145); Thyroid Stim Hormone (TSH) 2.36 uIU/mL (0.358-3.74); Vitamin D,25 Hydroxy 19.6 ng/mL
== END | disposition home or self-care (01) ==
LOC: POLAB3 15:38
PROVIDERS: PCP Family Medicine Geriatric Medicine; Visit Provider Family Medicine Geriatric Medicine
DX: I10 Essential (primary) hypertension (principal); E55.9 Vitamin D deficiency, unspecified
CPT/HCPCS: 36415; 80053; 82306; 84443; 85025

== ENCOUNTER → 2024-04-14 | Outpatient (CLI) | payer MEDICARE, OTHER, SELFPAY ==
[2024-04-14 16:47] LABS: International Normalized Ratio 1.2; Prothrombin Time (Protime)PT. 15.1 SECONDS (11.7-14.9)
[2024-04-14 17:12] LABS: ALB/GLOB Ratio 0.8 RATIO (0.9-2.4); AST(SGOT) 18 U/L (15-37); Alanine Aminotransfer ALT/SGPT 13 U/L (16-61); Albumin, Serum 3.3 g/dL (3.2-5.0); Alkaline Phosphatase 96 U/L (45-117); Anion Gap 8 (5-15); BUN 11 mg/dL (7-18); Calcium,Total 8.6 mg/dL (8.5-10.1); Chloride 104 mmol/L (98-107); Creatinine, Serum 1.22 mg/dL (0.70-1.30); EST Glomerular Filtration Rate 60 mL/min (>60); Est Glom Filt Rate - Afr Amer 72 mL/min (>60); Globulin 3.9 g/dL (2.2-4.2); Glucose 106 mg/dL (74-106); Potassium 3.7 mmol/L (3.5-5.1); Protein, Total 7.2 g/dL (6.4-8.2); Sodium Level 137 mmol/L (136-145)
== END | disposition home or self-care (01) ==
LOC: LAB 16:17
PROVIDERS: PCP Family Medicine Geriatric Medicine; Referring Provider Family Medicine Geriatric Medicine; Visit Provider Family Medicine Geriatric Medicine
DX: I10 Essential (primary) hypertension (principal); D69.2 Other nonthrombocytopenic purpura
CPT/HCPCS: 36415; 80053; 85610

== ENCOUNTER → 2024-07-04 | Outpatient (CLI) | payer MEDICARE, OTHER, SELFPAY ==
[2024-07-04 18:10] LABS: Absolute Lymphocyte Count 2.07 X10^3/uL (0.83-4.51); Absolute Neutrophil Count 1.2 X10^3/uL (2.0-7.7); Basophil# 0.01 X10^3/uL; Basophil% 0.2 % (0-1); Eosinophil# 0.06 X10^3/uL; Eosinophils% 1.5 % (0-5); Hematocrit 36.5 % (40-54); Hemoglobin 12.3 g/dL (13.0-16.5); Lymphocyte # 2.07 X10^3/ul (0.83-4.51); Mean Corp Hgb Conc 33.7 g/dL (32-36); Mean Corpuscular Hgb 31.8 pg (27.0-32.0); Mean Corpuscular Volume 94.3 fL (80-94); Mean Platelet Vol. 9.7 fl (6.2-12.0); Monocyte% 17.2 % (0-10); NRBC Flagged by Analyzer 0 % (0-5); Neutrophil # 1.21 X10^3/uL (2.7-7.7); Neutrophil % 29.9 % (47-70); Platelet Count 187 K/mm3 (150-450); RBC Distribution Width CV 14.6 % (11.6-14.6); RBC Distribution Width SD 49.1 fl (35.1-43.9); Red Blood Count 3.87 M/mm3 (4.6-6.2); White Blood Count 4.1 K/mm3 (4.4-11.0)
[2024-07-04 18:47] LABS: Ferritin 53 ng/mL (26-388); Iron 67 ug/dL (65-175); Iron Binding Capacity,Total 239 ug/dL (250-450); LDH 159 U/L (87-241)
[2024-07-04 18:51] LABS: ALB/GLOB Ratio 0.8 RATIO (0.9-2.4); AST(SGOT) 18 U/L (15-37); Alanine Aminotransfer ALT/SGPT 13 U/L (16-61); Albumin, Serum 3.1 g/dL (3.2-5.0); Alkaline Phosphatase 98 U/L (45-117); Anion Gap 4 (5-15); BUN 11 mg/dL (7-18); BUN/Creat Ratio 10.2 RATIO (10-20); Calcium,Total 8.8 mg/dL (8.5-10.1); Chloride 104 mmol/L (98-107); Creatinine, Serum 1.08 mg/dL (0.70-1.30); EST Glomerular Filtration Rate 69 mL/min (>60); Est Glom Filt Rate - Afr Amer 83 mL/min (>60); Glucose 114 mg/dL (74-106); Potassium 3.6 mmol/L (3.5-5.1); Protein, Total 7.1 g/dL (6.4-8.2); Sodium Level 138 mmol/L (136-145); Thyroid Stim Hormone (TSH) 2.68 uIU/mL (0.358-3.74)
[2024-07-04 21:23] LABS: Vitamin D,25 Hydroxy 23.3 ng/mL
[2024-07-07 06:11] LABS: Albumin 3.3 g/dL (2.9-4.4); Alpha-1-Globulins 0.2 g/dL (0.0-0.4); Alpha-2-Globulins 0.8 g/dL (0.4-1.0); Gamma Globulin 1.5 g/dL (0.4-1.8); Immunoglobulin A 482 mg/dL (61-437); Immunoglobulin G 1477 mg/dL (603-1613); Immunoglobulin M 176 mg/dL (15-143); PROEL- TOTAL PROTEIN 6.7 g/dL (6.0-8.5)
== END | disposition home or self-care (01) ==
LOC: POLAB3 16:24
PROVIDERS: Internal Medicine Hematology & Oncology; PCP Family Medicine Geriatric Medicine; Visit Provider Family Medicine Geriatric Medicine
DX: E55.9 Vitamin D deficiency, unspecified (principal); I10 Essential (primary) hypertension; D69.2 Other nonthrombocytopenic purpura
CPT/HCPCS: 36415; 80053; 82306; 82728; 82784; 83540; 83550; 83615; 84165; 84443; 85025; 86334

== ENCOUNTER → 2024-12-29 | Outpatient (CLI) | payer MEDICARE, OTHER, SELFPAY ==
[2024-12-29 17:06] LABS: Absolute Lymphocyte Count 2.27 X10^3/uL (0.83-4.51); Absolute Neutrophil Count 1.2 X10^3/uL (2.0-7.7); Basophil# 0.01 X10^3/uL; Basophil% 0.2 % (0-1); Eosinophil# 0.07 X10^3/uL; Eosinophils% 1.6 % (0-5); Hematocrit 38.9 % (40-54); Hemoglobin 12.3 g/dL (13.0-16.5); Lymphocyte # 2.27 X10^3/ul (0.83-4.51); Mean Corp Hgb Conc 31.6 g/dL (32-36); Mean Corpuscular Hgb 28.7 pg (27.0-32.0); Mean Corpuscular Volume 90.7 fL (80-94); Mean Platelet Vol. 9.7 fl (6.2-12.0); Monocyte# 0.75 X10^3/uL; Monocyte% 17.5 % (0-10); NRBC Flagged by Analyzer 0 % (0-5); Neutrophil # 1.16 X10^3/uL (2.7-7.7); Neutrophil % 27.2 % (47-70); Platelet Count 187 K/mm3 (150-450); RBC Distribution Width SD 49.2 fl (35.1-43.9); Red Blood Count 4.29 M/mm3 (4.6-6.2); White Blood Count 4.3 K/mm3 (4.4-11.0)
[2024-12-29 17:13] LABS: Vitamin D,25 Hydroxy 13.7 ng/mL
[2024-12-29 17:19] LABS: ALB/GLOB Ratio 0.7 RATIO (0.9-2.4); AST(SGOT) 15 U/L (15-37); Alanine Aminotransfer ALT/SGPT 11 U/L (16-61); Albumin, Serum 3.1 g/dL (3.2-5.0); Alkaline Phosphatase 97 U/L (45-117); Anion Gap 5 (5-15); BUN 11 mg/dL (7-18); BUN/Creat Ratio 9.6 RATIO (10-20); Calcium,Total 8.7 mg/dL (8.5-10.1); Chloride 103 mmol/L (98-107); Creatinine, Serum 1.15 mg/dL (0.70-1.30); EST Glomerular Filtration Rate 64 mL/min (>60); Est Glom Filt Rate - Afr Amer 77 mL/min (>60); Globulin 4.4 g/dL (2.2-4.2); Glucose 115 mg/dL (74-106); Potassium 3.9 mmol/L (3.5-5.1); Protein, Total 7.5 g/dL (6.4-8.2); Sodium Level 138 mmol/L (136-145)
== END | disposition home or self-care (01) ==
LOC: POLAB3 16:29
PROVIDERS: PCP Family Medicine Geriatric Medicine; Visit Provider Family Medicine Geriatric Medicine
DX: I10 Essential (primary) hypertension (principal); E55.9 Vitamin D deficiency, unspecified
CPT/HCPCS: 36415; 80053; 82306; 84443; 85025

== ENCOUNTER → 2025-07-26 | Outpatient (CLI) | payer MEDICARE, OTHER, SELFPAY | END | disposition home or self-care (01) | LOC: POLAB3 17:11 | PROVIDERS: PCP Family Medicine Geriatric Medicine; Visit Provider Family Medicine Geriatric Medicine | DX: J98.8 Other specified respiratory disorders (principal); R05.9 Cough, unspecified; R50.9 Fever, unspecified | CPT/HCPCS: 87631 ==

== ENCOUNTER 2025-07-27 14:21 | Emergency (ER) | payer MEDICARE, OTHER, SELFPAY ==
[2025-07-27 14:22] VITALS: BP 152/65; PULSE 65; RESP 16; TEMP 37.1; O2SAT 100; BMI 26.9
--- NOTE | 2025-07-27 16:15 | ED.VIS.LOWEX ---
HPI History of Present Illness Chief Complaint: Lower Extremity Injury Informant: patient Narrative Narrative: Patient is a 5-year-old male with history of hypertension, dementia, artificial valve and atrial fibrillation (on Plavix but no novel oral anticoagulation) presenting with right posterior knee pain. Patient's got a new rollator and over the past 3 weeks has had 2 falls when trying to get up and it tipped over. First fall was 3 weeks ago and he had another fall last week (approximately 7 days ago per sister). He has continued to complain of pain behind his right knee and he followed with his primary care doctor, Dr. Khan. He has had a recent cold and is currently on prednisone, azithromycin and Augmentin for this. 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 Patient denies any numbness or tingling of his legs. He does have pain in that area. Denies any skin changes. Denies any significant swelling of the leg. Denies any lightheadedness. No other complaints or concerns at this time. Sister is concerned because he has not had his afternoon medications and she did not give him his morning medications because of all of the antibiotics and doctors appointments. 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 History of aortic stenosis Vitamin D deficiency Allergic rhinitis BPH (benign prostatic hyperplasia) Hematuria Debility Aortic stenosis Bowel obstruction Mitral valve annular calcification Atrial fibrillation with rapid ventricular response Declining functional status Cognitive deficits Vitamin D deficiency Acute metabolic encephalopathy Acute kidney injury Prolonged QT interval Left bundle branch block Anemia Hyperlipidemia Essential (primary) hypertension Home Medications ?Medication ?Instructions ?Recorded ?Last Taken ?Type tamsulosin 0.4 mg capsule 0.4 mg PO QHS urine flow 08/20/19 Unknown History famotidine 40 mg tablet (Pepcid) 40 mg PO DAILY 08/10/20 Unknown History citalopram 10 mg tablet 10 mg PO DAILY 02/18/21 Unknown History donepezil 10 mg tablet 10 mg PO DAILY 02/18/21 Unknown History quetiapine 25 mg tablet 25 mg PO BID 02/18/21 Unknown History cyanocobalamin (vitamin B-12) 1,000 mcg PO DAILY 07/15/21 Unknown History 1,000 mcg capsule ascorbate calcium (vitamin C) 500 500 mg PO DAILY 01/13/22 Unknown History mg tablet carvedilol 3.125 mg tablet 3.125 mg PO BID #180 tabs 03/28/24 Unknown Rx losartan 50 mg tablet 50 mg PO DAILY #90 tabs 05/09/24 Unknown Rx hydralazine 50 mg tablet 50 mg PO TID #270 TABLETS 04/04/25 Unknown Rx clopidogrel 75 mg tablet 75 mg PO DAILY #60 tabs 06/05/25 Unknown Rx amlodipine 5 mg tablet 5 mg PO QHS #90 tabs 06/22/25 Unknown Rx vit C 250 mg-vit E 90 mg-zinc 40 1 tab PO BID 06/22/25 Unknown History mg-copper 1 [id number] capsule (PreserVision AREDS-2) rosuvastatin 20 mg tablet (Crestor) 10 mg (1/2 x 20 mg) PO DAILY #30 07/14/25 Unknown Rx tabs azithromycin 250 mg tablet 250 mg PO DAILY 07/27/25 Unknown History cefdinir 300 mg capsule 300 mg PO Q12.TCU 07/27/25 Unknown History codeine 10 mg-guaifenesin 100 mg/5 10 ml PO Q6H PRN cough 07/27/25 Unknown History mL oral liquid prednisone 10 mg tablet 10 mg PO .COMPLEX 07/27/25 Unknown History Allergy/AdvReac Type Severity Reaction Status Date / Time atorvastatin AdvReac Intermediate Myalgias Verified 07/27/25 14:23 Family History Father Cancer Lung cancer Sister Cancer Breast cancer Pancreas cancer Surgical History History of coronary artery bypass surgery (~07/04/19) History of aortic valve replacement with bioprosthetic valve (~07/04/19) History of right and left heart catheterization (03/02/19) S/P partial colectomy Umbilical hernia, incarcerated (12/04/18) Social History household members: family housing: house current occupational status: retired Smoking Status: Former smoker alcohol intake: never substance use type: does not use caffeine: Yes Type: carbonated beverages and coffee eating out: 1-3 times/week adán/episcopalian: Christianity seatbelt use: always do you feel safe at home: Yes ROS ROS ED Constitutional Constitutional ED: Denies chills or fever(s) ENT ENT ED: Reports sore throat and other Details: Nasal congestion Respiratory/Chest Respiratory/Chest: Reports cough Gastrointestinal Gastrointestinal: Denies abdominal pain Musculoskeletal Musculoskeletal: Reports other Details: Right posterior knee pain Integumentary Denies rash Neurologic Neurologic: Denies paresthesias or weakness Hematologic/Lymphatic Hematologic/Lymphatic: Denies easy bleeding or easy bruising EXAM Physical Exam Const Vital Signs: 07/27/25 14:22 07/27/25 16:38 07/27/25 18:50 Temperature 98.8 F Temperature Source Oral Pulse Rate 65 59 L 87 Respiratory Rate 16 18 24 H Blood Pressure 152/65 H 167/63 H 173/71 H Blood Pressure Mean 94 97 105 Pulse Ox 100 95 94 Oxygen Delivery Method Room Air Room Air 07/27/25 20:00 07/27/25 20:22 Temperature 98.8 F Temperature Source Pulse Rate 68 73 Respiratory Rate 22 H 21 H Blood Pressure 159/68 H 163/75 H Blood Pressure Mean 98 104 Pulse Ox 95 95 Oxygen Delivery Method Positive well nourished and well developed General Appearance ED: well developed HEENT normocephalic and atraumatic Resp normal respiratory effort Cardio regular rate and regular rhythm Cardio Narrative: 2+ DP pulses present. Bounding popliteal pulse on the right. 1+ popliteal pulse on the left. Extremity normal to inspection and full ROM Extremity Narrative: No deformity of the knee. No significant effusion present. General Extremety ED: Negative for edema General Extremity: Negative for edema Neuro moves all extremities and no sensory deficits noted Sensorium / Orientation: alert Motor Exam: Negative for general weakness Psych mental status grossly normal Skin no wounds Rashes: no rashes MDM MDM MDM Narrative Medical decision making narrative: Patient evaluated pseudoaneurysm noted on outpatient venous duplex. This was obtained because of pain to his right popliteal fossa. Was sent into the emergency room for further evaluation and vascular consult. On exam patient does have fullness of the popliteal fossa on the right but is neuro vas intact distally. He is hemodynamically stable and overall well-appearing. His sister is his primary caregiver is concerned because he has not had his medicines today. Is given some of his blood pressure medicine while in the emergency room. Case discussed with Dr. Mckeon, who recommends a CTA with runoff to the extremities for further surgical evaluation. Patient has arthrosclerotic changes, pseudoaneurysm with surrounding hematoma. No acute vascular emergency noted. Results were reviewed with Dr. Mckeon. Plan is to follow-up in the office this coming Thursday and likely catheterization for stenting of the aneurysm on Thursday. He will continue to take his Plavix. Is given return precautions. Counseled that if he all of a sudden has severe pain, coldness to his foot or severe pain and swelling behind his knee he should immediately return to the emergency room. Patient and sister verbalized agreement understands plan. Patient discharged home in stable condition. Lab Data Attestation: I reviewed the patient's lab results. 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 Prominent pseudoaneurysm involving the right popliteal artery with surrounding hematoma. Pseudoaneurysm was mentioned in the clinical history. Reading Location: [id number] Discharge Plan Triage Chief Complaint: Lower Extremity Injury ED Provider: Ilana Medrano Dx/Rx/DC Orders Clinical Impression: Pseudoaneurysm, Acute pain of right knee Instructions: ED Peripheral Artery Disease (PAD) Prescriptions: No Action famotidine [Pepcid] 40 mg tablet 40 mg PO DAILY citalopram 10 mg tablet 10 mg PO DAILY Patient Comments: Take 1 Tablet orally once per Day for 30 Days donepezil 10 mg tablet 10 mg PO DAILY Patient Comments: TAKE 1 TABLET BY MOUTH DAILY WITH SUPPER quetiapine 25 mg tablet 25 mg PO BID cyanocobalamin (vitamin B-12) 1,000 mcg capsule 1,000 mcg PO DAILY ascorbate calcium (vitamin C) 500 mg tablet 500 mg PO DAILY PreserVision AREDS-2 250-90-40-1 mg capsule 1 tab PO BID amlodipine 5 mg tablet 5 mg PO QHS Qty: 90 3RF tamsulosin 0.4 MG capsule 0.4 mg PO QHS azithromycin 250 mg tablet 250 mg PO DAILY codeine-guaifenesin 10-100 mg/5 mL liquid 10 ml PO Q6H PRN (Reason: cough) cefdinir 300 mg capsule 300 mg PO Q12.TCU prednisone 10 mg tablet 10 mg PO .COMPLEX Rx Instructions: 10 mg orally see taper; carvedilol 3.125 mg tablet 3.125 mg PO BID Qty: 180 3RF Rx Instructions: must administer with a meal/food losartan 50 mg tablet 50 mg PO DAILY Qty: 90 4RF hydralazine 50 mg tablet 50 mg PO TID Qty: 270 1RF clopidogrel 75 mg tablet 75 mg PO DAILY Qty: 60 0RF rosuvastatin [Crestor] 20 mg tablet 10 mg PO DAILY Qty: 30 12RF Primary Care Provider: Husam Khan Chi Referrals: Channing Mckeon MD [Med Staff - Active Staff] - Husam Khan Chi, MD [Primary Care Provider] - Activity Restrictions/Additional Instructions: Continue taking your medications including your Plavix. The vascular surgery office should call you tomorrow. If you do not hear from them please call them. The plan is to have an office visit this coming Thursday and you likely have a procedure to correct this pseudoaneurysm the following day. If it anytime before that he develops severe pain or swelling behind his right knee, numbness or significant coldness to the right foot please immediately return to the emergency room. Take care not to have any further falls or injuries as we do not want to make this unstable or worsen. Print Language: Finnish Disposition Disposition: Home, Self Care Discharge Date/Time: 07/27/25 20:33
[2025-07-27 16:38] VITALS: BP 167/63; PULSE 59; RESP 18; O2SAT 95
--- NOTE | 2025-07-27 16:50 | CT_ITS ---
PROCEDURE: CTA ABD W/RUNOFF W/WO CONTRAST 07/27/2025 REASON FOR EXAM: PSEUDOANEURYSM OF THE RIGHT POPLITEAL ARTERY TECHNIQUE: Procedure Code: [id number] Modality: CT Procedure: CTA ABD W/RUNOFF W/WO CONTRAST Multiplanar Sagittal and Coronal images were obtained. Three-dimensional reconstructions CONTRAST: Isovue 370 VOLUME: 100 mL One or more dose reduction techniques were used (e.g., Automated exposure control, adjustment of the mA and/or kV according to patient size, use of iterative reconstruction technique). RADIATION DOSE SUMMARY: CTDlvol: 22 mGy DLP: 1445 mGycm FINDINGS: Inspection of the angiographic study demonstrates normal distal thoracic aorta. Normal upper abdominal aorta. Normal celiac artery, superior mesenteric artery and renal arteries with calcified plaque at their origins. No aneurysm. No dissection. 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 On the right, patent external iliac and common femoral artery. Patent superficial femoral artery and deep femoral artery with scattered calcified plaque. Moderate stenosis of the distal right superficial femoral artery with extensive calcification of the popliteal artery on the right. There is a popliteal pseudoaneurysm present which measures 2.4 x 2.2 cm. Pseudoaneurysm was described in the clinical history. No intraluminal thrombus but prominent hematoma surrounding the pseudoaneurysm. There is atherosclerotic change within the infrapopliteal vessels with segmental loss of opacification of the right anterior tibial artery. On the left, calcified plaque in the common femoral artery. Patent deep femoral and superficial femoral artery with calcified plaque in the distal SFA and popliteal artery. Three-vessel runoff segmentally below the left knee. 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 Prominent pse udoaneurysm involving the right popliteal artery with surrounding hematoma. Pseudoaneurysm was mentioned in the clinical histor y. Reading Location: [id number]
[2025-07-27 17:06] LABS: Hematocrit 30.7 % (40-54); Hemoglobin 9.3 g/dL (13.0-16.5); Mean Corp Hgb Conc 30.3 g/dL (32-36); Mean Corpuscular Volume 81.9 fL (80-94); Mean Platelet Vol. 8.6 fl (6.2-12.0); Platelet Count 282 K/mm3 (150-450); RBC Distribution Width CV 15.4 % (11.6-14.6); RBC Distribution Width SD 45.6 fl (35.1-43.9); Red Blood Count 3.75 M/mm3 (4.6-6.2); White Blood Count 9.5 K/mm3 (4.4-11.0)
[2025-07-27 17:28] LABS: Anion Gap 12 (5-15); BUN 19 mg/dL (4-19); BUN/Creat Ratio 16.9 RATIO (10-20); Calcium,Total 9.1 mg/dL (7.6-11.0); Carbon Dioxide 25.9 mmol/L (21.0-32.0); Chloride 103 mmol/L (98-108); Estimated Creatinine Clearance 45.25 ml/min (50-250); Glucose 156 mg/dL (70-99); Potassium 4.1 mmol/L (3.3-5.1)
[2025-07-27 18:50] VITALS: BP 173/71; PULSE 87; RESP 24; O2SAT 94
[2025-07-27 20:00] VITALS: BP 159/68; PULSE 68; RESP 22; O2SAT 95
[2025-07-27 20:22] VITALS: BP 163/75; PULSE 73; RESP 21; TEMP 37.1; O2SAT 95
== END 2025-07-27 20:33 | disposition home or self-care (01) ==
PROVIDERS: Emergency Provider Emergency Medicine; PCP Family Medicine Geriatric Medicine; Visit Provider Emergency Medicine
DX: I72.4 Aneurysm of artery of lower extremity (principal); F03.90 Unspecified dementia, unspecified severity, without behavioral disturbance, psychotic disturbance, mood disturbance, and anxiety; I48.91 Unspecified atrial fibrillation; I10 Essential (primary) hypertension; Z79.02 Long term (current) use of antithrombotics/antiplatelets; Z79.899 Other long term (current) drug therapy; Z87.891 Personal history of nicotine dependence
CPT/HCPCS: 75635; 80048; 85027; 99282; Q9967; A4216

== ENCOUNTER → 2025-07-27 | Outpatient (CLI) | payer MEDICARE, OTHER, SELFPAY ==
--- NOTE | 2025-07-27 13:00 | VDLE_ITS ---
Reason For Study Reason For Study: Edema RIGHT LEFT GSV is normal. GSV is normal. CFV is compressible, spontaneous, phasic, competent CFV is compressible, spontaneous, phasic, competent, and demonstrates normal augmentation. and demonstrates normal augmentation. FV is compressible, spontaneous, phasic, competent and FV is compressible, spontaneous, phasic, competent demonstrates normal augmentation. and demonstrates normal augmentation. PTV is compressible. POP V is compressible, spontaneous, phasic, competent RT PerV is compressible. and demonstrates normal augmentation. 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 measures 4.47x7.34 cm. It is partially thrombosed with PTV is compressible. a false lumen of 2.65x3.04 cm. Unable to visualize LT PerV is compressible. neck. Unable to visualize Pop V and T/P Trunk due to Pseudoaneusrysm. Procedure This is a venous duplex using B-mode, color flow and spectral Doppler. Exam performed in department. A preliminary report was called and/or faxed to Dr. Khan. Pt taken to ED. VL/Venous Duplex US - Lalo Extrem Interpretation Summary Deep veins of the bilateral lower extremities are patent and compressible segme ntally. There is no evidence of bilateral lower extremity deep vein thrombosis. The bilateral great saphenous veins appea r patent and compressible segmentally. Incidental finding, right popliteal artery pseudoaneurysm. Ordering Physician: Husam Khan Chi Referring Physician: Husam Khan Chi Performed By: Ashley Harris and Student, RVT
== END | disposition home or self-care (01) ==
LOC: CVS 12:57
PROVIDERS: PCP Family Medicine Geriatric Medicine; Referring Provider Family Medicine Geriatric Medicine; Visit Provider Family Medicine Geriatric Medicine
DX: R60.0 Localized edema (principal); M25.561 Pain in right knee; M25.562 Pain in left knee
CPT/HCPCS: 93970

== ENCOUNTER 2025-08-02 06:45 | Day surgery (SDC) | payer MEDICARE, OTHER, SELFPAY ==
[2025-08-01 08:29] VITALS: BMI 30.8
--- OUTSIDE RECORDS SUMMARY | 2025-08-02 06:53 | XMS RPT_ITS | CCD ---
Author Organization [facility] Care Team Providers Care Shelf Stocker Name Role Phone GEORGIE LANDIS Referring Unavailable GEORGIE LANDIS Primary Care Unavailable Felipe Gonzáles Attending Unavailable MD Husam Khan Chi Primary Care Provider Unavailab MD Husam Sinclair Chi Referring Provider Unavailable Dr. Geoffrey Garza Attending Provider MAHENDRA Brennan Attending Provider MD Husam Khan Chi Primary Care Provider Unavailab MD Husam Sinclair Chi Referring Provider Unavailable Dr. Geoffrey Garza Attending Provider MD Husam Khan Chi Primary Care Provider Unavailab MD Husam Sinclair Chi Referring Provider Unavailable Dr. Geoffrey Garza Attending Provider MAHENDRA Brennan Attending Provider Dr. Scott Lobo Attending Provider MD Husam Carrasco Chi Primary Care Provider Unava ilable MD Husam Carrasco Chi Referring Provider Unavaila ble Dr. Scott Lobo Attending Provider Dr. Geoffrey Garza Attending Provider Dr. Husam Khan Chi Primary Care Provider Dr. Husam Khan Chi Referring Provider Dr. Husam Khan MD, Chi Primary Care Provider Dr. Husam Khan MD, Chi Attending Provider Dr. Geoffrey Garza MD Attending Provider Dr. Geoffrey Garza MD Referring Provider Dr. Husam Khan MD, Chi Primary Care Provider Dr. Husam Khan MD, Chi Referring Provider La Brennan Attending Provider Bill ZAMARRIPA, Dr. Husam Harrington Attending Provider Dr. Ilana Medrano DO Emergency Provider [phone] La Brennan Attending Unavail able Bill, Husam Chi Referring Unavailable Bill, Husam Chi Primary Care Unavailable Bill, Husam Chi Referring Unavailable Bill, Husam Chi Primary Care Unavailable Isckarus, Mansour Attending Unavailable Bill, Husam Chi Primary Care Unavailable [place], Channing Attending Unavailable Betty MCCRAY, La Beltrán Attending Unavail able La Brennan Referring Unavail able Bill, Husam Chi Primary Care Unavailable Bill, Husam Chi Attending Unavailable Bill, Husam Chi Primary Care Unavailable Bill, Husam Chi Attending Unavailable Bill, Husam Chi Referring Unavailable Bill, Husam Chi Primary Care Unavailable Bill, Husam Chi Primary Care Unavailable Isckarus, Mansour Attending Unavailable Isckarus, Mansour Referring Unavailable Bill, Husam Chi Attending Unavailable Bill, Husam Chi Primary Care Unavailable Ilana Medrano Attending Unavailable Bill, Husam Chi Primary Care Unavailable Bill, Husam Chi Primary Care Unavailable [place], Channing Attending Unavailable [place], Channing Referring Unavailable Bill, Husam Chi Primary Care Unavailable Channing Mckeon Attending Unavailable Dr. Channing Mckeon MD Attending Provider Dr. Ilana Medrano DO Attending Provider Allergies Allergy Classification Reported Allergen(s) Allergy Type Date of Onset Reaction(s) Facility (14 sources) atorvastatin Drug Allergy 01-14-2022 [facility] (1 source) atorvastatin Drug Allergy 07-27-2025 [facility] Medications Current Medications Medication Drug Class(es) Dates Sig (Normalized) Sig (Original) [id number] 200 actuat albuterol 0.09 mg/actuat metered dose inhaler (15 sources) beta2-Adrenergic Agonist Start: 08-01-2025 Albuterol Sulfate 90 mcg/actuation HFA aerosol inhaler Active 2 NMA INHALATION as needed for shortness of breath or wheezing August 01, 2025 12:00am Start: 07-13-2019 End: 07-28-2019 take 1 mL by inhalation every four hours as needed for wheezing Albuterol Sulfate 2.5 MG/3 ML solution for nebulization Discontinued 3 mL INHALATION EVERY 4 HOURS NEEDED as needed for sob wheezing July 13, 2019 12:00am July 28, 2019 8:00pm Start: 07-13-2019 End: 07-28-2019 take 1 mL by inhalation every four hours as needed Albuterol Sulfate Discontinued 3 ML INHALATION EVERY 4 HOURS NEEDED July 13, 2019 12:00am July 28, 2019 8:00pm azithromycin 250 mg oral tablet (2 sources) Macrolide Antimicrobial Start: 07-27-2025 take 1 tablet by mouth once daily Azithromycin 250 mg tablet Active 250 mg PO DAILY July 27, 2025 12:00am calcium ascorbate 500 mg oral tablet (14 sources) Start: 01-13-2022 take 1 tablet by mouth once daily Ascorbate Calcium (Vitamin C) 500 mg tablet Active 500 mg PO DAILY January 13, 2022 1:00am carvedilol 3.125 mg oral tablet (20 sources) alpha-Adrenergic Leyda, beta-Adrenergic Leyda Start: 03-28-2024 take 1 tablet by mouth twice daily at mealtime Carvedilol 3.125 mg tablet Active 3.125 mg PO TWICE A DAY 180 3 March 28, 2024 12:00am must administer with a meal/food Start: 02-18-2021 End: 03-28-2024 take 3.125 mg by mouth twice daily at mealtime Carvedilol (Coreg) 6.25 mg tablet Discontinued 3.125 mg PO TWICE A DAY 90 3 February 18, 2021 3:22pm March 28, 2024 9:57am must administer with a meal/food Start: 01-31-2021 End: 02-18-2021 take 1 tablet by mouth twice daily at mealtime Carvedilol (Coreg) 6.25 mg tablet Discontinued 6.25 mg PO TWICE A DAY 180 January 31, 2021 1:00am February 18, 2021 3:28pm must administer with a meal/food Start: 01-20-2019 End: 02-01-2019 take 1 tablet by mouth three times daily Carvedilol 25 mg tablet Discontinued 25 mg PO THREE TIMES A DAY January 20, 2019 1:00am February 01, 2019 3:08pm cefdinir 300 mg oral capsule (2 sources) Cephalosporin Antibacterial Start: 07-27-2025 Cefdinir 300 mg capsule Active 300 mg PO Q12 July 27, 2025 12:00am citalopram 10 mg oral tablet (14 sources) Serotonin Reuptake Inhibitor Start: 02-18-2021 take 1 tablet by mouth once daily Citalopram 10 mg tablet Active 10 mg PO DAILY February 18, 2021 12:00am codeine phosphate 2 mg/ml / guaiFENesin 20 mg/ml oral solution (2 sources) Opioid Agonist Start: 07-27-2025 take 1 mL by mouth every six hours as needed for cough Codeine-Guaifenesi n 10-100 mg/5 mL liquid Active 10 mL PO EVERY 6 HOURS as needed for cough July 27, 2025 12:00am donepezil hydrochloride 10 mg oral tablet (14 sources) Start: 02-18-2021 take 1 tablet by mouth once daily Donepezil 10 mg tablet Active 10 mg PO DAILY February 18, 2021 12:00am famotidine 40 mg oral tablet (14 sources) Histamine-2 Receptor Antagonist Start: 08-10-2020 take 1 tablet by mouth once daily Famotidine (Pepcid) 40 mg tablet Active 40 mg PO DAILY August 10, 2020 12:00am predniSONE 10 mg oral tablet (2 sources) Start: 07-27-2025 Prednisone 10 mg tablet Active 10 mg PO .COMPLEX July 27, 2025 12:00am 10 mg orally see taper; QUEtiapine 25 mg oral tablet (14 sources) Atypical Antipsychotic Start: 02-18-2021 take 1 tablet by mouth twice daily Quetiapine 25 mg tablet Active 25 mg PO TWICE A DAY February 18, 2021 12:00am rosuvastatin calcium 20 mg oral tablet (20 sources) HMG-CoA Reductase Inhibitor Start: 03-28-2024 End: 07-14-2025 take 10 mg by mouth once daily Rosuvastatin (Crestor) 20 mg tablet Active 10 mg PO DAILY 30 July 14, 2025 11:49am Start: 08-21-2020 End: 03-28-2024 take 10 mg by mouth every other day Rosuvastatin (Crestor) 20 mg tablet Discontinued 10 mg PO .QOD 30 July 14, 2022 2:30pm March 28, 2024 9:56am Start: 07-03-2020 End: 08-21-2020 take 1 tablet by mouth once daily Rosuvastatin (Crestor) 20 mg tablet Discontinued 20 mg PO DAILY 30 July 03, 2020 12:00am August 21, 2020 1:17pm Start: 02-01-2019 End: 02-18-2019 take 1 tablet by mouth once daily Rosuvastatin (Crestor) 5 mg tablet Discontinued 5 mg PO DAILY 90 3 February 01, 2019 3:06pm February 18, 2019 10:15am Vit C,C-Qz-Ndhlz-Lutein-Zeaxan (Preservision Areds-2) 250-90-40-1 mg capsule (3 sources) Start: 06-22-2025 take 2 capsules by mouth twice daily Vit C,J-Nw-Paipq-Lutein-Zeaxan (Preservision Areds-2) 250-90-40-1 mg capsule Active 1 {tbl} PO TWICE A DAY June 22, 2025 12:00am vitamin b12 1 mg oral capsule (14 sources) Vitamin B12 Start: 07-15-2021 take 1 capsule by mouth once daily Cyanocobalamin (Vitamin B-12) 1,000 mcg capsule Active 1000 ug PO DAILY July 15, 2021 12:00am Completed/Discontinued Medications Medication Drug Class(es) Dates Sig (Normalized) Sig (Original) acetaminophen 500 mg oral tablet (20 sources) Start: 07-28-2019 End: 08-18-2019 take 2 tablets by mouth every six hours as needed for pain Acetaminophen 500 MG tablet Discontinued 1000 mg PO EVERY 6 HOURS NEEDED as needed for Mild Pain (-10) 0 July 28, 2019 12:00am August 18, 2019 3:19pm Start: 07-28-2019 End: 08-18-2019 take 1000 mg by mouth every six hours as needed Acetaminophen Discontinued 1000 MG PO EVERY 6 HOURS NEEDED July 28, 2019 12:00am August 18, 2019 3:19pm Start: 07-13-2019 End: 07-28-2019 take 1 tablet by mouth every four hours as needed for pain Acetaminophen 325 MG tablet Discontinued 325 mg PO EVERY 4 HOURS NEEDED as needed for Pain July 13, 2019 12:00am July 28, 2019 7:57pm acetaminophen 325 mg / HYDROcodone bitartrate 5 mg oral tablet (14 sources) Opioid Agonist Start: 09-01-2019 End: 10-05-2019 Hydrocodone-Acetaminophen (Clubb) 5-325 mg tablet Discontinued 1 {tbl} PO EVERY 6 HOURS as needed 0 September 01, 2019 12:00am October 05, 2019 12:10pm amiodarone hydrochloride 200 mg oral tablet (20 sources) Antiarrhythmic Start: 07-28-2019 End: 08-15-2019 take 1 tablet by mouth once daily Amiodarone 200 MG tablet Discontinued 200 mg PO DAILY 30 0 July 28, 2019 12:00am August 15, 2019 1:37pm Start: 07-13-2019 End: 07-28-2019 take 1 tablet by mouth twice daily Amiodarone 200 MG tablet Discontinued 200 mg PO TWICE A DAY July 13, 2019 12:00am July 28, 2019 7:57pm heart amLODIPine 5 mg oral tablet (20 sources) Dihydropyridine Calcium Channel Leyda Start: 08-21-2020 End: 06-22-2025 take 1 tablet by mouth twice daily Amlodipine 5 mg tablet Discontinued 5 mg PO TWICE A DAY 90 3 May 04, 2025 12:26pm June 22, 2025 10:38am Start: 11-15-2019 End: 08-21-2020 take 1 tablet by mouth once daily Amlodipine 5 mg tablet Discontinued 5 mg PO DAILY 90 3 January 27, 2020 3:06pm August 21, 2020 12:47pm Start: 01-20-2019 End: 02-01-2019 take 1 tablet by mouth once daily Amlodipine 5 mg tablet Discontinued 5 mg PO DAILY January 20, 2019 1:00am February 01, 2019 3:08pm ascorbic acid 500 mg oral capsule (20 sources) Vitamin C Start: 08-20-2019 End: 06-15-2020 take 1 capsule by mouth every other day Ascorbic Acid (Vitamin C) 500 MG capsule Discontinued 500 mg PO EVERY OTHER DAY August 20, 2019 12:00am June 15, 2020 5:50pm Start: 07-13-2019 End: 07-28-2019 take 1 capsule by mouth once daily Ascorbic Acid (Vitamin C) 500 MG capsule Discontinued 500 mg PO DAILY July 13, 2019 12:00am July 28, 2019 8:00pm vitamin aspirin 81 mg chewable tablet (14 sources) Platelet Aggregation Inhibitor, Nonsteroidal Anti-inflammatory Drug Start: 07-13-2019 End: 10-07-2019 take 2 tablets by mouth once daily Aspirin 81 MG tablet,chewable Discontinued 162 mg PO DAILY July 13, 2019 12:00am October 07, 2019 2:40pm heart Start: 07-13-2019 End: 10-07-2019 take 162 mg by mouth once daily Aspirin Discontinued 162 MG PO DAILY July 13, 2019 12:00am October 07, 2019 2:40pm atorvastatin 40 mg oral tablet (20 sources) HMG-CoA Reductase Inhibitor Start: 07-13-2019 End: 07-03-2020 take 1 tablet by mouth at bedtime Atorvastatin 40 MG tablet Discontinued 40 mg PO AT BEDTIME 30 0 July 28, 2019 8:00pm October 07, 2019 2:44pm cholesterol benzonatate 100 mg oral capsule (14 sources) Non-narcotic Antitussive Start: 07-28-2019 End: 08-17-2019 take 1 capsule by mouth three times daily as needed for cough Benzonatate 100 MG capsule Discontinued 100 mg PO 3 TIMES DAILY NEEDED as needed for COUGH 90 0 July 28, 2019 12:00am August 17, 2019 6:10pm bisacodyl 10 mg rectal suppository (14 sources) Stimulant Laxative Start: 07-13-2019 End: 07-28-2019 take 10 mg rectal route once daily as needed for constipation Bisacodyl 10 MG suppository Discontinued 10 mg RECTAL DAILY NEEDED as needed for Constipation July 13, 2019 12:00am July 28, 2019 8:00pm cholecalciferol 0.05 mg chewable tablet (20 sources) Vitamin D Start: 01-27-2020 End: 07-03-2020 take 1 tablet by mouth once daily Cholecalciferol (Vitamin D3) 2,000 unit tablet,chewable Discontinued 2000 U PO DAILY 30 11 January 27, 2020 1:00am July 03, 2020 11:02am Start: 02-01-2019 End: 07-28-2019 take 1 capsule by mouth once daily Cholecalciferol (Vitamin D3) 5,000 unit capsule Discontinued 5000 U PO DAILY February 01, 2019 12:00am July 28, 2019 8:00pm vitamin clopidogrel 75 mg oral tablet (20 sources) [id number] Platelet Inhibitor Start: 08-16-2020 End: 06-05-2025 take 1 tablet by mouth once daily Clopidogrel 75 mg tablet Discontinued 75 mg PO DAILY 60 0 March 29, 2025 8:01am June 05, 2025 11:24am dextromethorphan hydrobromide 2 mg/ml / guaiFENesin 20 mg/ml oral solution (20 sources) Uncompetitive F-wnoihy-F-aspartat e Receptor Antagonist, Sigma-1 Agonist Start: 07-28-2019 End: 10-07-2019 take 1 mL by mouth every four hours as needed for cough Dextromethorphan- Guaifenesin 10-100 mg/5 mL syrup Discontinued 10 mL PO Q4H as needed for COUGH August 18, 2019 3:18pm October 07, 2019 2:41pm Start: 07-28-2019 End: 10-07-2019 take 1 mL by mouth every four hours Dextromethorphan-Guaifenesin Discontinue d 10 ML PO Q4H August 18, 2019 3:18pm October 07, 2019 2:41pm docusate sodium 50 mg / sennosides, assisted 8.6 mg oral tablet (14 sources) Start: 07-13-2019 End: 07-28-2019 Sennosides-Docusate Sodium 1 EACH tablet Discontinued 1 {tbl} PO DAILY NEEDED as needed for Constipation July 13, 2019 12:00am July 28, 2019 8:00pm Start: 07-13-2019 End: 07-28-2019 take 1 tablet by mouth once daily as needed Sennosides-Docusate Sodium Discontinued 1 TABLET PO DAILY NEEDED July 13, 2019 12:00am July 28, 2019 8:00pm doxycycline hyclate 100 mg oral capsule (14 sources) Tetracycline-class Drug Start: 09-01-2019 End: 10-07-2019 take 1 capsule by mouth twice daily Doxycycline Hyclate 100 mg capsule Discontinued 100 mg PO TWICE A DAY September 01, 2019 12:00am October 07, 2019 2:41pm ergocalciferol 0.0625 mg oral capsule (20 sources) Provitamin D2 Compound Start: 01-27-2020 End: 01-31-2020 Ergocalciferol (Vitamin D2) 2,500 unit capsule Discontinued 2500 U PO DAILY 90 3 January 31, 2020 10:29am January 31, 2020 10:34am to prevent myagias with Atorvastatin ferrous sulfate 325 mg oral tablet (20 sources) Start: 01-13-2022 End: 07-27-2025 take 1 tablet by mouth once daily Ferrous Sulfate (Iron) 325 mg (65 mg iron) tablet Discontinued 325 mg PO DAILY January 13, 2022 1:00am July 27, 2025 4:45pm Start: 10-05-2019 End: 06-15-2020 take 1 tablet by mouth once daily Ferrous Sulfate 325 mg (65 mg iron) tablet Discontinued 325 mg PO DAILY October 05, 2019 12:05pm June 15, 2020 5:50pm Start: 08-20-2019 End: 10-05-2019 take 1 tablet by mouth every other day Ferrous Sulfate 325 MG tablet Discontinued 325 mg PO EVERY OTHER DAY August 20, 2019 12:00am October 05, 2019 12:10pm Start: 03-01-2019 End: 07-28-2019 take 1 tablet by mouth once daily Ferrous Sulfate 325 MG tablet Discontinued 325 mg PO DAILY March 01, 2019 12:00am July 28, 2019 8:00pm iron supplement fluticasone propionate 0.05 mg/actuat metered dose nasal spray (14 sources) Corticosteroid Start: 03-01-2019 End: 07-28-2019 Fluticasone Propionate 1 SPRAY Nasal.Sry Discontinued 1 NMA NASAL DAILY as needed for Congestion March 01, 2019 12:00am July 28, 2019 8:00pm Start: 03-01-2019 End: 07-28-2019 Fluticasone Propionate Disco ntinued 1 SPRAY NASAL DAILY March 01, 2019 12:00am July 28, 2019 8:00pm folic acid 1 mg oral tablet (14 sources) Start: 07-13-2019 End: 07-28-2019 take 1 tablet by mouth once daily Folic Acid 1 MG tablet Discontinued 1 mg PO DAILY July 13, 2019 12:00am July 28, 2019 8:00pm supplement furosemide 20 mg oral tablet (20 sources) Loop Diuretic Start: 06-15-2020 End: 08-10-2020 take 1 tablet by mouth once daily Furosemide 20 mg tablet Discontinued 20 mg PO DAILY June 15, 2020 5:49pm August 10, 2020 11:01am Start: 05-28-2020 End: 06-15-2020 take 1 tablet by mouth every other day Furosemide 20 mg tablet Discontinued 20 mg PO .every other day May 28, 2020 4:00pm June 15, 2020 5:50pm Start: 10-07-2019 End: 05-28-2020 take 1 tablet by mouth once daily Furosemide 20 mg tablet Discontinued 20 mg PO DAILY 90 3 October 07, 2019 1:00am May 28, 2020 4:01pm Start: 08-17-2019 End: 10-05-2019 take 1 tablet by mouth once daily Furosemide (Lasix) 20 mg tablet Discontinued 20 mg PO DAILY 30 September 02, 2019 12:00am October 05, 2019 12:10pm Start: 07-13-2019 End: 07-28-2019 take 1 tablet by mouth once daily Furosemide 40 MG tablet Discontinued 40 mg PO DAILY July 13, 2019 12:00am July 28, 2019 8:00pm diuretic x5 days 12 hr guaiFENesin 600 mg / pseudoephedrine hydrochloride 60 mg extended release oral tablet (14 sources) alpha-Adrenergic Agonist Start: 01-20-2019 End: 02-01-2019 take 1 tablet by mouth every twelve hours Pseudoephedrine-Guaifenesin (Mucinex D) 60-600 mg tablet extended release 12 hr Discontinued 1 {tbl} PO TWICE A DAY January 20, 2019 1:00am February 01, 2019 2:19pm Start: 01-20-2019 End: 02-01-2019 take 1 tablet by mouth twice daily, then take 1 tablet by mouth every twelve hours Pseudoephedrine-Guaifenesin (Mucinex D) 60-600 mg tablet extended release 12 hr Discontinued 1 TABLET PO TWICE A DAY January 20, 2019 1:00am February 01, 2019 2:19pm hydrALAZINE hydrochloride 50 mg oral tablet (20 sources) Arteriolar Vasodilator Start: 01-14-2022 End: 2025 take 1 tablet by mouth three times daily Hydralazine 50 mg tablet Discontinued 50 mg PO THREE TIMES A DAY 270 3 March 28, 2024 9:58am 2025 9:19am Start: 02-18-2021 End: 01-14-2022 take 1 tablet by mouth three times daily Hydralazine 25 mg tablet Discontinued 25 mg PO THREE TIMES A DAY 90 30 January 10, 2022 3:10pm January 14, 2022 3:36pm Start: 05-28-2020 End: 08-10-2020 take 1 tablet by mouth three times daily Hydralazine 25 mg tablet Discontinued 25 mg PO THREE TIMES A DAY 270 90 August 01, 2020 3:13pm August 10, 2020 2:08pm Start: 10-26-2019 End: 05-28-2020 take 1 tablet by mouth twice daily Hydralazine 25 mg tablet Discontinued 25 mg PO TWICE A DAY 60 October 26, 2019 1:00am May 28, 2020 4:26pm Start: 10-17-2019 End: 10-26-2019 take 1 tablet by mouth twice daily Hydralazine 10 mg tablet Discontinued 10 mg PO TWICE A DAY 60 October 17, 2019 1:00am October 26, 2019 5:07pm Start: 09-01-2019 End: 10-17-2019 Hydralazine 25 mg tablet Discontinued 25 mg PO .COMPLEX October 07, 2019 2:42pm October 17, 2019 5:19pm 25 mg PO sister has not been giving, worried about bp getting too low; lactobacillus acidophilus [id number] unt oral capsule (14 sources) Start: 07-13-2019 End: 07-28-2019 Lactobacillus Acidophilus 1 EACH capsule Discontinued 1 NMA PO TWICE A DAY July 13, 2019 12:00am July 28, 2019 8:00pm probiotic Start: 07-13-2019 End: 07-28-2019 take 1 capsule by mouth twice daily Lactobacillus Acidophilus Discontinued 1 CAP PO TWICE A DAY July 13, 2019 12:00am July 28, 2019 8:00pm losartan potassium 50 mg oral tablet (20 sources) Angiotensin 2 Receptor Leyda Start: 01-14-2022 End: 01-14-2022 take 1 tablet by mouth twice daily Losartan 50 mg tablet Discontinued 50 mg PO TWICE A DAY 180 3 January 14, 2022 3:31pm January 14, 2022 3:36pm Start: 01-31-2021 End: 05-09-2024 take 1 tablet by mouth once daily Losartan 50 mg tablet Discontinued 50 mg PO DAILY 90 March 28, 2024 9:58am May 09, 2024 11:26am Start: 08-18-2019 End: 01-31-2021 take 1 tablet by mouth twice daily Losartan 50 mg tablet Discontinued 50 mg PO TWICE A DAY 180 August 28, 2020 1:31pm January 31, 2021 2:07pm Start: 08-15-2019 End: 08-18-2019 take 1 tablet by mouth once daily Losartan 50 mg tablet Discontinued 50 mg PO DAILY 30 August 15, 2019 12:00am August 18, 2019 3:31pm meloxicam 7.5 mg oral tablet (14 sources) Nonsteroidal Anti-inflammatory Drug Start: 02-18-2021 End: 05-22-2025 take 1 tablet by mouth once daily as needed Meloxicam 7.5 mg tablet Discontinued 7.5 mg PO DAILY as needed February 18, 2021 12:00am May 22, 2025 10:44am menthol 0.0044 mg/mg / zinc oxide 0.2 mg/mg topical ointment (14 sources) Start: 07-28-2019 End: 08-18-2019 Menthol-Zinc Oxide 1 APPLIC ointment Discontinued 1 NMA TOPICAL 599,0 0 July 28, 2019 12:00am August 18, 2019 3:19pm Please contact the information source for Protocol details. Start: 07-28-2019 End: 08-18-2019 Menthol-Zinc Oxide Discontin ued 1 APPLIC TOPICAL 599,0 July 28, 2019 12:00am August 18, 2019 3:19pm metoprolol tartrate 50 mg oral tablet (20 sources) beta-Adrenergic Leyda Start: 05-28-2020 End: 01-31-2021 Metoprolol Tartrate 50 mg tablet Discontinued 25 mg PO TWICE A DAY 90 3 May 28, 2020 4:25pm January 31, 2021 2:06pm On Hold: Bradycardia Start: 05-28-2020 End: 01-31-2021 take 25 mg by mouth twice daily Metoprolol Tartrate Di scontinued 25 MG PO TWICE A DAY 90 May 28, 2020 4:25pm January 31, 2021 2:06pm On Hold: Bradycardia Start: 09-01-2019 End: 05-28-2020 take 1 tablet by mouth twice daily Metoprolol Tartrate 50 mg tablet Discontinued 50 mg PO TWICE A DAY 180 3 October 07, 2019 2:41pm May 28, 2020 4:26pm Start: 08-15-2019 End: 09-01-2019 Metoprolol Tartrate 50 mg ta blet Discontinued 25 mg PO TWICE A DAY 1 0 August 15, 2019 1:37pm September 01, 2019 3:42pm Start: 08-15-2019 End: 09-01-2019 take 25 mg by mouth twice daily Metoprolol Tartrate Di scontinued 25 MG PO TWICE A DAY 1 August 15, 2019 1:37pm September 01, 2019 3:42pm Start: 07-28-2019 End: 08-15-2019 take 1 tablet by mouth every eight hours Metoprolol Tartrate 50 MG tablet Discontinued 50 mg PO EVERY 8 HOURS 90 0 July 28, 2019 12:00am August 15, 2019 1:38pm Start: 07-13-2019 End: 07-28-2019 take 1 tablet by mouth every eight hours Metoprolol Tartrate 75 MG tablet Discontinued 75 mg PO Q8H July 13, 2019 12:00am July 28, 2019 7:58pm blood pressure omeprazole 20 mg delayed release oral capsule (14 sources) Proton Pump Inhibitor Start: 12-13-2019 End: 07-03-2020 take 1 capsule by mouth once daily Omeprazole 20 mg capsule,delayed release(DR/EC) Discontinued 20 mg PO DAILY 90 3 December 13, 2019 1:00am July 03, 2020 11:02am oxyCODONE hydrochloride 5 mg oral tablet (20 sources) Opioid Agonist Start: 08-17-2019 End: 09-01-2019 take 1 tablet by mouth every six hours as needed for pain Oxycodone 5 mg tablet Discontinued 5 mg PO EVERY 6 HOURS as needed for Pain Score 1-10/10 0 August 17, 2019 12:00am September 01, 2019 3:41pm Start: 07-28-2019 End: 08-05-2019 take 1 tablet by mouth every four hours as needed for pain Oxycodone 5 MG tablet Discontinued 5 mg PO EVERY 4 HOURS NEEDED as needed for Severe Pain (6-10/10) 30 7 0 July 28, 2019 August 03, 2019 12:00am August 05, 2019 12:11am 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 Start: 01-20-2019 End: 02-01-2019 take 1 capsule by mouth every six hours as needed Oxycodone 5 mg capsule Discontinued 5 mg PO EVERY 6 HOURS as needed 0 January 20, 2019 1:00am February 01, 2019 2:19pm pantoprazole 40 mg delayed release oral tablet (20 sources) Proton Pump Inhibitor Start: 09-01-2019 End: 12-13-2019 take 1 tablet by mouth once daily Pantoprazole 40 mg tablet,delayed release (DR/EC) Discontinued 40 mg PO DAILY 90 3 October 07, 2019 2:43pm December 13, 2019 6:21pm polyethylene glycol 3350 42042 mg powder for oral solution (14 sources) Osmotic Laxative Start: 02-18-2019 End: 07-03-2020 take 17 g by mouth once daily as needed for constipation Polyethylene Glycol 3350 17 GM packet Discontinued 17 g PO DAILY as needed for Constipation February 18, 2019 12:00am July 03, 2020 11:02am polysaccharide iron complex 150 mg oral capsule (14 sources) Start: 07-28-2019 End: 08-17-2019 take 1 capsule by mouth once daily at mealtime Polysaccharide Iron Complex 150 MG capsule Discontinued 150 mg PO DAILY WITH MEALS July 28, 2019 12:00am August 17, 2019 6:11pm microencapsulated potassium chloride 20 meq extended release oral tablet (14 sources) Start: 07-13-2019 End: 07-28-2019 take 1 tablet by mouth once daily Potassium Chloride 20 MEQ tablet,ER particles/crystals Discontinued 20 meq PO DAILY July 13, 2019 12:00am July 28, 2019 8:00pm supplement x5 days simvastatin 20 mg oral tablet (14 sources) HMG-CoA Reductase Inhibitor Start: 01-20-2019 End: 02-01-2019 take 1 tablet by mouth at bedtime Simvastatin 20 mg tablet Discontinued 20 mg PO AT BEDTIME January 20, 2019 1:00am February 01, 2019 2:18pm sodium chloride 0.111 meq/ml nasal spray (14 sources) Start: 01-20-2019 End: 02-01-2019 Sodium Chloride (Saline Mist) 0.65 % aerosol,spray Discontinued 1 NMA INTRANASAL every 1 to 4 hours as needed January 20, 2019 1:00am February 01, 2019 2:19pm Start: 01-20-2019 End: 02-01-2019 Sodium Chloride (Saline Mist ) 0.65 % aerosol,spray Discontinued 1 SPRAY INTRANASAL every 1 to 4 hours January 20, 2019 1:00am February 01, 2019 2:19pm tamsulosin hydrochloride 0.4 mg oral capsule (20 sources) alpha-Adrenergic Leyda Start: 07-13-2019 End: 08-20-2019 take 1 capsule by mouth once daily Tamsulosin 0.4 MG capsule Discontinued 0.4 mg PO DAILY 30 0 July 28, 2019 8:00pm August 20, 2019 8:28am urine flow ubidecarenone 100 mg oral capsule (14 sources) Start: 05-28-2020 End: 06-15-2020 Coenzyme Q10 (Co Q-10) 100 mg capsule Discontinued 100 mg PO DAILY May 28, 2020 12:00am June 15, 2020 5:50pm Problems Active Problems Problem Classification Problem Date Documented Date Episodic/Chronic Acute and unspecified renal failure (16 sources) Acute kidney failure with tubular necrosis; Translations: [Injury of kidney] Onset: 9 08-17-2019 Episodic Aortic; peripheral; and visceral artery aneurysms (2 sources) Pseudoaneurysm; 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 Rivers; Chronic kidney disease (2 sources) Chronic kidney disease, stage 3 (moderate); Translations: [Chronic kidney disease, stage 3 (moderate)] Onset: Chronic Coma; stupor; and brain damage (6 sources) Coma scale, best motor response, obeys commands, at hospital admission; Translations: [Coma scale, eyes open, spontaneous, at hospital admission] Onset: Conduction disorders (16 sources) Left bundle-branch block, unspecified; Translations: [Left bundle branch block] Onset: 9 07-13-2019 Chronic Coronary atherosclerosis and other heart disease (20 sources) Other forms of acute ischemic heart disease; Translations: [Coronary arteriosclerosis] Onset: Chronic Comment on above: [address] Crist[employer]ian Trife cta pericardial prosthesis; CABG X2 with HARRINGTON to LAD, reverse SVG to ramus intermedius, and exclusion of left atrial appendage with 35 mm Atricure clip (pt poor anticoag candidate d/t hematuria). per Dr. Wayne Rivers 07/04/19 @ [facility] Status post CABG x2 on 07/04/2019 at [facility] with Dr. Rivers; Deficiency and other anemia (18 sources) Iron deficiency anemia due to blood loss; Translations: [Iron deficiency anemia secondary to blood loss (chronic)] 07-15-2021 Chronic Deficiency and other anemia (8 sources) Iron deficiency anemia secondary to blood loss (chronic); Translations: [Iron deficiency anemia secondary to blood loss (chronic)] Onset: 5 Chronic Deficiency and other anemia (14 sources) Anemia; Translations: [Anemia, unspecified] 07-03-2020 Episodic Comment on above: Hgb 9.7 on 01/20/19, ord by Dr. Howell (PCP) Diseases of white blood cells (2 sources) Elevated white blood cell count, unspecified; Translations: [Elevated white blood cell count, unspecified] Onset: 9 Chronic Disorders of lipid metabolism (20 sources) Hyperlipidemia, unspecified; Translations: [Hyperlipidemia] Onset: 9 Chronic Esophageal disorders (15 sources) Gastro-esophageal reflux disease with esophagitis; Translations: [Gastroesophageal reflux disease with esophagitis] 12-15-2019 Chronic Essential hypertension (20 sources) Essential hypertension; Translations: [Essential (primary) hypertension] Onset: 5 Chronic Fever of unknown origin (1 source) Fever, unspecified; Translations: [Fever, unspecified] Onset: 5 Episodic Fluid and electrolyte disorders (6 sources) Hypokalemia; Translations: [Dehydration] Onset: 9 Episodic Genitourinary symptoms and ill-defined conditions (14 sources) Blood in urine; Translations: [Hematuria, unspecified] 07-13-2019 Episodic Heart valve disorders (20 sources) Nonrheumatic aortic (valve) stenosis; Translations: [History of aortic valve replacement] Onset: 9 Chronic Comment on above: [address] Cristhian Trife cta pericardial prosthesis; CABG X2 with HARRINGTON and LAD, reverse SVG to ramus intermedius, and exclusion of left atrial appendage with 35 mm Atricure clip (pt poor anticoag candidate d/t hematuria). per Dr. Wayne Rivers 07/04/19 @ [facility] [address] Cristhian Trife cta pericardial prosthesis per Dr. Wayne Rivers 07/04/19 @ [facility] Severe per echo 12/06 @ [facility] Mild per echo 9 done @ [facility] by Dr. José Miguel Gutierrez. No regurgitation. Hyperplasia of prostate (14 sources) Benign prostatic hyperplasia; Translations: [Benign prostatic hyperplasia without lower urinary tract symptoms] 07-13-2019 Chronic Hypertension with complications and secondary hypertension (2 sources) Hypertensive chronic kidney disease with stage 1 through stage 4 chronic kidney disease, or unspecified chronic kidney disease; Translations: [Hypertensive chronic kidney disease w stg 1-4/unsp chr kdny] Onset: 9 Chronic Intestinal obstruction without hernia (14 sources) Intestinal obstruction; Translations: [Unspecified intestinal obstruction, unspecified as to partial versus complete obstruction] 08-17-2019 Episodic Comment on above: Repaired at [facility] 12/04/18 Malaise and fatigue (16 sources) Other malaise; Translations: [Asthenia] Onset: 9 07-13-2019 Episodic Neoplasms of unspecified nature or uncertain behavior (20 sources) Monoclonal gammopathy of uncertain significance; Translations: [Monoclonal gammopathy] Onset: 5 Chronic Nutritional deficiencies (16 sources) Vitamin D deficiency, unspecified; Translations: [Vitamin D deficiency] Onset: 9 07-13-2019 Chronic Other aftercare (1 source) Encounter for adjustment and management of vascular access device; Translations: [Encounter for adjustment and management of vascular access device] Onset: 5 Episodic Other circulatory disease (14 sources) H/O: heart disorder; Translations: [Personal history of other diseases of the circulatory system] 08-17-2019 Episodic Other hereditary and degenerative nervous system conditions (2 sources) Mild cognitive impairment, so stated; Translations: [Mild cognitive impairment, so stated] Onset: 9 Chronic Other lower respiratory disease (1 source) Other specified respiratory disorders; Translations: [Other specified respiratory disorders] Onset: 5 Episodic Other nervous system disorders (2 sources) Metabolic encephalopathy; Translations: [Metabolic encephalopathy] Onset: 9 Chronic Other nervous system disorders (14 sources) Metabolic encephalopathy; Translations: [Metabolic encephalopathy] 08-17-2019 Chronic Other non-traumatic joint disorders (3 sources) Pain in right knee; Translations: [Acute pain of right knee] Onset: 5 07-27-2025 Episodic Other nutritional; endocrine; and metabolic disorders (2 sources) Hypomagnesemia; Translations: [Hypomagnesemia] Onset: 9 Chronic Other nutritional; endocrine; and metabolic disorders (2 sources) Hypocalcemia; Translations: [Hypocalcemia] Onset: 9 Chronic Other screening for suspected conditions (not mental disorders or infectious disease) (14 sources) Prolonged QT interval; Translations: [Abnormal electrocardiogram [ECG] [EKG]] 07-13-2019 Episodic Other upper respiratory disease (14 sources) Allergic rhinitis; Translations: [Allergic rhinitis, unspecified] 07-13-2019 Chronic Peripheral and visceral atherosclerosis (2 sources) Acute (reversible) ischemia of small intestine, extent unspecified; Translations: [Acute ischemia of small intestine, extent unspecified] Onset: 9 Residual codes; unclassified (2 sources) Physical restraint status; Translations: [Physical restraint status] Onset: 9 Episodic Residual codes; unclassified (2 sources) Disorientation, unspecified; Translations: [Disorientation, unspecified] Onset: 9 Episodic Residual codes; unclassified (1 source) Localized edema; Translations: [Localized edema] Onset: 5 Episodic Residual codes; unclassified (1 source) Generalized edema; Translations: [Generalized edema] Onset: 5 Episodic Unclassified (1 source) Cough, unspecified; Translations: [Cough, unspecified] Onset: 5 Past or Other Problems Problem Classification Problem Date Documented Date Episodic/Chronic Abdominal hernia (18 sources) Other and unspecified ventral hernia with obstruction, without gangrene; Translations: [Umbilical hernia with obstruction, without gangrene] Onset: 12-04-2018 07-13-2019 Episodic Comment on above: [facility] Coronary atherosclerosis and other heart disease (1 source) Presence of aortocoronary bypass graft; Translations: [Aortocoronary bypass status] Onset: 06-23-2019 03-18-2023 Episodic Residual codes; unclassified (14 sources) History of cardiac catheterization; Translations: [Other specified postprocedural states] Onset: 03-02-2019 03-02-2019 Episodic Comment on above: Aortic Valve Area: 1 .11 Aortic Valve Index: 0.54 Aortic Valve Mean Gradient: 40.4; Mitral Valve Area: 1.24 Mitral Valve index: 0.6 Mitral Valve Mean Gradient: 14.2; Right Heart pressures - elevated; LEFT MAIN: Angiographically normal; LEFT ANTERIOR DECENDING ARTERY: Mild luminal irregularities less than 30%;CIRCUMFLEX ARTERY: Mild luminal irregularities less than 30%; RIGHT CORONARY ARTERY: Mild luminal irregularities less than 30% VALVE FINDINGS: Aortic Valve Stenosis - severe per [facility] 03/02/19 per [facility] @ [facility] Results Test Name Value Interpretation Reference Range Facility Anion gap in Serum or Plasma Ordered By: Ilana Medrano on 07-27-2025 Anion gap [Moles/Vol] 12 mmol/L 04-06 [facility] BUN/creatinine ratioOrdered By: Ilana Medrano on 07-27-2025 Urea nitrogen/Creatinine [Mass ratio] 16.9 mg/mg 09-11 [facility] Basic Metabolic Profile (BMP )on 07-27-2025 BUN/CRE 16.9 RATIO Normal 09-11 [facility] Comment on above: Performed By: #### L 500.2500, L100.0500 #### [facility] [address] [place], [address] Calcium [Mass/Vol] 9.1 mg/dL Normal 7.6-11.0 [facility] Comment on above: Performed By: #### L 500.2500, L100.0500 #### [facility] [address] [place], [address] Chloride [Moles/Vol] 103 mmol/L Normal 98-108 [facility] Comment on above: Performed By: #### L 500.2500, L100.0500 #### [facility] [address] [place], [address] CO2 [Moles/Vol] 25.9 mmol/L Normal 21.0-32.0 [facility] Comment on above: Performed By: #### L 500.2500, L100.0500 #### [facility] [address] [place], [address] Creatinine [Mass/Vol] 1.15 mg/dL Normal 0.70-1.20 [facility] Comment on above: Performed By: #### L 500.2500, L100.0500 #### [facility] [address] [place], [address] ECRCL 45.25 ml/min Low 50-250 [facility] Comment on above: Performed By: #### L 500.2500, L100.0500 #### [facility] [address] [place], [address] GAP 12 Normal 5-15 [facility] Comment on above: Performed By: #### L 500.2500, L100.0500 #### [facility] [address] [place], [address] GFR/1.73 sq M.predicted among non-blacks MDRD (S/P/Bld) [Vol rate/Area] 62 mL/min/{1.73_m2} Normal >60 [facility] Comment on above: Result Comment: mL/m in/1.73m2 CKD-EPI Creatinine Equation (2020) Performed By: #### L 500.2500, L100.0500 #### [facility] [address] [place], [address] Glucose [Mass/Vol] 156 mg/dL High 70-99 [facility] Comment on above: Performed By: #### L 500.2500, L100.0500 #### [facility] [address] [place], [address] Potassium [Moles/Vol] 4.1 mmol/L Normal 3.3-5.1 [facility] Comment on above: Performed By: #### L 500.2500, L100.0500 #### [facility] [address] [place], [address] Sodium [Moles/Vol] 140 mmol/L Normal 133-145 [facility] Comment on above: Performed By: #### L 500.2500, L100.0500 #### [facility] [address] [place], [address] Urea nitrogen [Mass/Vol] 19 mg/dL Normal 4-19 [facility] Comment on above: Performed By: #### L 500.2500, L100.0500 #### [facility] [address] [place], [address] CBC-Complete Blood [facility] Erythrocyte distribution width (RBC) [Ratio] 15.4 % High 11.6-14.6 [facility] Comment on above: Performed By: #### L 500.2500, L100.0500 #### [facility] [address] [place], [address] Hematocrit (Bld) [Volume fraction] 30.7 % Low 40-54 [facility] Comment on above: Performed By: #### L 500.2500, L100.0500 #### [facility] [address] [place], [address] Hemoglobin (Bld) [Mass/Vol] 9.3 g/dL Low 13.0-16.5 [facility] Comment on above: Performed By: #### L 500.2500, L100.0500 #### [facility] [address] [place], [address] MCH (RBC) [Entitic mass] 24.8 pg Low 27.0-32.0 [facility] Comment on above: Performed By: #### L 500.2500, L100.0500 #### [facility] [address] [place], [address] MCHC (RBC) [Mass/Vol] 30.3 g/dL Low 32-36 [facility] Comment on above: Performed By: #### L 500.2500, L100.0500 #### [facility] [address] [place], [address] MCV (RBC) [Entitic vol] 81.9 fL Normal 80-94 [facility] Comment on above: Performed By: #### L 500.2500, L100.0500 #### [facility] [address] [place], [address] Platelet mean volume (Bld) [Entitic vol] 8.6 fL Normal 6.2-12.0 [facility] Comment on above: Performed By: #### L 500.2500, L100.0500 #### [facility] [address] [place], [address] Platelets (Bld) [#/Vol] 282 10*3/uL Normal 150-450 [facility] Comment on above: Performed By: #### L 500.2500, L100.0500 #### [facility] [address] [place], [address] RBC (Bld) [#/Vol] 3.75 10*6/uL Low 4.6-6.2 [facility] Comment on above: Performed By: #### L 500.2500, L100.0500 #### [facility] [address] [place], [address] RDW SD 45.6 fl High 35.1-43.9 [facility] Comment on above: Performed By: #### L 500.2500, L100.0500 #### [facility] [address] [place], [address] WBC (Bld) [#/Vol] 9.5 10*3/uL Normal 4.4-11.0 [facility] Comment on above: Performed By: #### L 500.2500, L100.0500 #### [facility] [address] [place], [address] CTA Abd w/Runoff W/WO Contra ston 07-27-2025 CTA Abd w/Runoff W/WO Contrast [facility] [address] [place] [address] CTA Abd w/Runoff W/WO Contrast MR#: [id number] Acct: [id number] Name: ELIAS SHAH Rep #: [id number] : 1940 M 85 From: Marv Curtis MD PCP: Dr. Husam Khan MD Status: REG ER Study: CTA Abd w/Runoff W/WO Contrast Date of Exam: 0 07/27/25 Exam# [id number] Ordering Dr: Ilana Medrano DO PROCEDURE: CTA ABD W/RUNOFF W/WO CONTRAST 07/27/2025 REASON FOR EXAM: PSEUDOANEURYSM OF THE RIGHT POPLITEAL ARTERY TECHNIQUE: Procedure Code: [id number] Modality: CT Procedure: CTA ABD W/RUNOFF W/WO CONTRAST Multiplanar Sagittal and Coronal images were obtained. Three-dimensional reconstructions CONTRAST: Isovue 370 VOLUME: 100 mL One or more dose reduction techniques were used (e.g., Automated exposure control, adjustment of the mA and/or kV according to patient size, use of iterative reconstruction technique). RADIATION DOSE SUMMARY: CTDlvol: 22 mGy DLP: 1445 mGycm FINDINGS: Inspection of the angiographic study demonstrates normal distal thoracic aorta. Normal upper abdominal aorta. Normal celiac artery, superior mesenteric artery and renal arteries with calcified plaque at their origins. No aneurysm. No dissection. 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 On the right, patent external iliac and common femoral artery. Patent superficial femoral artery and deep femoral artery with scattered calcified plaque. Moderate stenosis of the distal right superficial femoral artery with extensive calcification of the popliteal artery on the right. There is a popliteal pseudoaneurysm present which measures 2.4 x 2.2 cm. Pseudoaneurysm was described in the clinical history. No intraluminal thrombus but prominent hematoma surrounding the pseudoaneurysm. There is atherosclerotic change within the infrapopliteal vessels with segmental loss of opacification of the right anterior tibial artery. On the left, calcified plaque in the common femoral artery. Patent deep femoral and superficial femoral artery with calcified plaque in the distal SFA and popliteal artery. Three-vessel runoff segmentally below the left knee. 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 Prominent pseudoaneurysm involving the right popliteal artery with surrounding hematoma. Pseudoaneurysm was mentioned in the clinical history. Reading Location: [id number] CC: Dr. Ilana Medrano DO; Dr. Husam Khan MD Product Engineering Manager: Signed Normal [facility] Carbon dioxide, total [Moles /volume] in Central venous bloodOrdered By: Ilana Medrano on 07-27-2025 CO2 [Moles/Vol] 25.9 mmol/L 21.0-32.0 [facility] Chloride assayOrdered By: Anatoly Medrano on 07-27-2025 Chloride [Moles/Vol] 103 mmol/L 98-108 [facility] Emergency Department Summary on 07-27-2025 Emergency Department Summary [facility] Medical Records Department [address] [place] [address] Emergency Department Summary 07/27/25 MR#: [id number] Acct: [id number] Name: EILAS SHAH Rep #: [id number] : 1940 85 From: Ilana Medrano DO PCP: Dr. Husam Khan MD Status:DEP ER Location: ED HPI History of Present Illness Chief Complaint: Lower Extremity Injury Informant: patient Narrative Narrative: Patient is a 5-year-old male with history of hypertension, dementia, artificial valve and atrial fibrillation (on Plavix but no novel oral anticoagulation) presenting with right posterior knee pain. Patient's got a new rollator and over the past 3 weeks has had 2 falls when trying to get up and it tipped over. First fall was 3 weeks ago and he had another fall last week (approximately 7 days ago per sister). He has continued to complain of pain behind his right knee and he followed with his primary care doctor, Dr. Khan. He has had a recent cold and is currently on prednisone, azithromycin and Augmentin for this. 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 Patient denies any numbness or tingling of his legs. He does have pain in that area. Denies any skin changes. Denies any significant swelling of the leg. Denies any lightheadedness. No other complaints or concerns at this time. Sister is concerned because he has not had his afternoon medications and she did not give him his morning medications because of all of the antibiotics and doctors appointments. 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 History of aortic stenosis Vitamin D deficiency Allergic rhinitis BPH (benign prostatic hyperplasia) Hematuria Debility Aortic stenosis Bowel obstruction Mitral valve annular calcification Atrial fibrillation with rapid ventricular response Declining functional status Cognitive deficits Vitamin D deficiency Acute metabolic encephalopathy Acute kidney injury Prolonged QT interval Left bundle branch block Anemia Hyperlipidemia Essential (primary) hypertension Home Medications ???Medication ???Instructions ???Recorded ???Last Taken ???Type tamsulosin 0.4 mg capsule 0.4 mg PO QHS urine flow 08/20/19 Unknown History famotidine 40 mg tablet (Pepcid) 40 mg PO DAILY 08/10/20 Unknown Hi story citalopram 10 mg tablet 10 mg PO DAILY 02/18/21 Unknown Hi story donepezil 10 mg tablet 10 mg PO DAILY 02/18/21 Unknown Hi story quetiapine 25 mg tablet 25 mg PO BID 02/18/21 Unknown Hist ory cyanocobalamin (vitamin B-12) 1,000 mcg PO DAILY 07/15/21 Unknow n History 1,000 mcg capsule ascorbate calcium (vitamin C) 500 500 mg PO DAILY 01/13/22 Unknown History mg tablet carvedilol 3.125 mg tablet 3.125 mg PO BID #180 tabs 03/28/24 Unknown Rx losartan 50 mg tablet 50 mg PO DAILY #90 tabs 05/09/24 U nknown Rx hydralazine 50 mg tablet 50 mg PO TID #270 TABLETS 04/04/25 Unknown Rx clopidogrel 75 mg tablet 75 mg PO DAILY #60 tabs 06/05/25 U nknown Rx amlodipine 5 mg tablet 5 mg PO QHS #90 tabs 06/22/25 Unkn own Rx vit C 250 mg-vit E 90 mg-zinc 40 1 tab PO BID 06/22/25 Unknown Hist ory mg-copper 1 ym-soabup-vlakch capsule (PreserVision AREDS-2) rosuvastatin 20 mg tablet (Crestor) 10 mg (1/2 x 20 mg) PO DAILY #3 0 07/14/25 Unknown Rx tabs azithromycin 250 mg tablet 250 mg PO DAILY 07/27/25 Unknown H istory cefdinir 300 mg capsule 300 mg PO Q12.TCU 07/27/25 Unknown History codeine 10 mg-guaifenesin 100 mg/5 10 ml PO Q6H PRN cough 07/27/25 Unknown History mL oral liquid prednisone 10 mg tablet 10 mg PO .COMPLEX 07/27/25 Unknown History Allergy/AdvReac Type Severity Reaction Status Date / Time atorvastatin AdvReac Intermediate Myalgias Verified 07/27/25 14:23 Family History Father Cancer Lung cancer Sister Cancer Breast cancer Pancreas cancer Surgical History History of coronary artery bypass surgery ( 07/04/19) History of aortic valve replacement with bioprosthetic valve ( 07/04/19) History of right and left heart catheterization (03/02/19) S/P partial colectomy Umbilical hernia, incarcerated (12/04/18) Social History household members: family housing: house current occupational status: retired Smoking Status: Former smoker alcohol intake: never substance use type: does not use caffeine: Yes Type: carbonated beverages and coffee eating out: 1-3 times/wee (more content not included)... Normal [facility] Erythrocyte distribution wid th ratioOrdered By: Ilana Medrano on 07-27-2025 Erythrocyte distribution width (RBC) [Ratio] 15.4 % High 11.6-14.6 [facility] Erythrocyte distribution wid th standard deviationOrdered By: Ilana Medrano on 07-27-2025 Erythrocyte distribution width (RBC) [Ratio] 45.6 fl High 35.1-43.9 [facility] Glomerular filtration rate ( GFR) estimation/1.73 sq m using serum, plasma, or whole bOrdered By: Ilana Medrano on 07-27-2025 GFR/1.73 sq M.predicted among non-blacks MDRD (S/P/Bld) [Vol rate/Area] 62 mL/min/{1.73_m2} >60 [facility] Comment on above: mL/min/1.73m2 CKD-EP I Creatinine Equation (2020) Hematocrit Auto (Bld) [Volum e fraction]Ordered By: Ilana Medrano on 07-27-2025 Hematocrit (Bld) [Volume fraction] 30.7 % Low 40-54 [facility] Hemoglobin measurementOrdere d By: Ilana Medrano on 07-27-2025 Hemoglobin (Bld) [Mass/Vol] 9.3 g/dL Low 13.0-16.5 [facility] MCV (mean corpuscular volume ) determinationOrdered By: Ilana Medrano on 07-27-2025 MCV (RBC) [Entitic vol] 81.9 fL 80-94 [facility] Mean corpuscular hemoglobin (MCH) determinationOrdered By: Ilana Medrano on 07-27-2025 MCH (RBC) [Entitic mass] 24.8 pg Low 27.0-32.0 [facility] Mean corpuscular hemoglobin concentration (MCHC) determinationOrdered By: Ilana Medrano on 07-27-2025 MCHC (RBC) [Mass/Vol] 30.3 g/dL Low 32-36 [facility] Mean platelet volume determi nationOrdered By: Ilana Medrano on 07-27-2025 Platelet mean volume (Bld) [Entitic vol] 8.6 fL 6.2-12.0 [facility] Platelet countOrdered By: Anatoly Medrano on 07-27-2025 Platelets (Bld) [#/Vol] 282 10*3/uL 150-450 [facility] Potassium measurement (mass/ volume)Ordered By: Ilana Medrano on 07-27-2025 Potassium (Unsp spec) [Mass/Vol] 4.1 mmol/L 3.3-5.1 [facility] RBC Auto (Bld) [#/Vol]Ordere d By: Ilana Medrano on 07-27-2025 RBC (Bld) [#/Vol] 3.75 10*6/uL Low 4.6-6.2 [facility] Serum creatinine measurement (mass/volume)Ordered By: Ilana Medrano on 07-27-2025 Creatinine [Mass/Vol] 1.15 mg/dL 0.70-1.20 [facility] Serum glucose measurement (m ass/volume)Ordered By: Ilana Medrano on 07-27-2025 Glucose [Mass/Vol] 156 mg/dL High 70-99 [facility] Serum or plasma calcium donna urement (mass/volume)Ordered By: Ilana Medrano on 07-27-2025 Calcium [Mass/Vol] 9.1 mg/dL 7.6-11.0 [facility] Serum or plasma urea nitroge n measurement (mass/volume)Ordered By: Ilana Medrano on 07-27-2025 Urea nitrogen [Mass/Vol] 19 mg/dL 4-19 [facility] Sodium levelOrdered By: Demi Medrano on 07-27-2025 Sodium [Moles/Vol] 140 mmol/L 133-145 [facility] Venous Duplex US - Lalo [facility] 07-27-2025 Venous Duplex US - Lalo [facility] [address] [place] [address] Venous Duplex US - Lalo [facility] 07/27/25 1314 MR#: [id number] Acct: [id number] Name: ELIAS SHAH Rep #: [id number] : 1940 85 From: Channing Mckeon MD Attending Dr: Dr. Husam Khan MD Status: REG CLI Ordering Dr: Husam Khan MD Date: 07/27/25 Location: [facility] Sex: M C Admitted: Reason For Study Reason For Study: Edema RIGHT LEFT GSV is normal. GSV is normal. CFV is compressible, spontaneous, phasic, competent CFV is compressible, spontaneous, phasic, competent, and demonstrates normal augmentation. and demonstrates normal augmentation. FV is compressible, spontaneous, phasic, competent and FV is compressible, spontaneous, phasic, competent demonstrates normal augmentation. and demonstrates normal augmentation. PTV is compressible. POP V is compressible, spontaneous, phasic, competent RT PerV is compressible. and demonstrates normal augmentation. 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 measures 4.47x7.34 cm. It is partially thrombosed with PTV is compressible. a false lumen of 2.65x3.04 cm. Unable to visualize LT PerV is compressible. neck. Unable to visualize Pop V and T/P Trunk due to Pseudoaneusrysm. Procedure This is a venous duplex using B-mode, color flow and spectral Doppler. Exam performed in department. A preliminary report was called and/or faxed to Dr. Khan. Pt taken to ED. VL/Venous Duplex US - Lalo Extrem Interpretation Summary Deep veins of the bilateral lower extremities are patent and compressible segmentally. There is no evidence of bilateral lower extremity deep vein thrombosis. The bilateral great saphenous veins appear patent and compressible segmentally. Incidental finding, right popliteal artery pseudoaneurysm. Ordering Physician: Husam Khan Chi Referring Physician: Husam Khan Chi Performed By: Ashley Harris and Student, RVT 07/31/25 1230 Date Channing Mckeon MD CC: Dr. Husam Khan MD Date Dictated: 07/27/25 1314 Date Transcribed: 07/31/25 1230 Product Engineering Manager: Signed Normal [facility] White blood cell (WBC) count Ordered By: Ilana Medrano on 07-27-2025 WBC (Bld) [#/Vol] 9.5 10*3/uL 4.4-11.0 [facility] Influenza virus A and B and SARS-CoV-2 (COVID-19) and Respiratory syncytial virus RNAOrdered By: Husam Khan on 07-26-2025 SARS-CoV-2 (COVID-19) RNA TRICIA+probe Ql (Unsp spec) [facility] M100.678on 07-26-2025 M100.678 Pending SARS-CoV-2 (COVID 19) Negative INFLUENZA A Negative INFLUENZA B Negative RSV PCR Negative Normal [facility] Comment on above: Performed By: #### M 100.678 #### [facility] [address] [place], [place], [address] Cardiology Visit Reporton Cardiology Visit Report [facility] [address] [place], [place] [address] OFFICE VISIT Date of Service: 06/22/25 MR#: [id number] Acct: [id number] Name: ELIAS SHAH Rep #: [id number] : 1940 Provider: MAHENDRA Kirkland Age/Sex: 85/M Location: [facility] Status: Signed HPI HPI History of Present Illness Details: This gentleman has a history of coronary artery disease status post CABG in 2019 with a HARRINGTON to the LAD and SVG to the ramus. Also has had atrial appendage ligation. He was also noted to have aortic stenosis and that was replaced with a bioprosthetic valve. He does complain of daytime sleepiness. He also has issues with his balance and some swelling. No chest pain. No shortness of breath. No palpitations. No orthopnea. No PND. Intake Vital Signs 05/22/25 10:44 06/22/25 10:01 Height 5 ft 9 in 5 ft 9 in Weight: 200 lb 8 oz 203 lb BMI 29.6 29.9 BP 160/65 H 119/76 Blood Pressure Location Lt brachial Lt brachial Position Sitting Sitting Respiration 16 18 Pulse 59 L 65 Pulse Source Monitor NIBP Temp 98.2 F Temperature Source Temporal Artery Pulse Oximetry (%) 95 Oxygen Delivery Method room air Intake Visit Reasons: Overdue 1 Y FU Peripatologist Required: No Accompanied by: Sister Is patient in pain?: No Allergies atorvastatin Adverse Reaction (Intermediate, Verified 06/22/25 10:06) Myalgias Medications ???Medication ???Instructions ???Recorded ???Confirmed ???Type tamsulosin 0.4 mg capsule 0.4 mg PO QHS urine flow 08/20/19 06/22/25 History famotidine 40 mg tablet (Pepcid) 40 mg PO DAILY 08/10/20 06/22/25 H istory citalopram 10 mg tablet 10 mg PO DAILY 02/18/21 06/22/25 H istory donepezil 10 mg tablet 10 mg PO DAILY 02/18/21 06/22/25 H istory quetiapine 25 mg tablet 25 mg PO BID 02/18/21 06/22/25 His tory cyanocobalamin (vitamin B-12) 1,000 mcg PO DAILY 07/15/21 History 1,000 mcg capsule ascorbate calcium (vitamin C) 500 500 mg PO DAILY 01/13/22 06/22/25 History mg tablet ferrous sulfate 325 mg (65 mg 325 mg PO DAILY 01/13/22 06/22/25 History iron) tablet (iron) carvedilol 3.125 mg tablet 3.125 mg PO BID #180 tabs 03/28/24 06/22/25 Rx rosuvastatin 20 mg tablet (Crestor) 10 mg (1/2 x 20 mg) PO DAILY #3 0 03/28/24 06/22/25 Rx tabs losartan 50 mg tablet 50 mg PO DAILY #90 tabs 05/09/24 0 06/22/25 Rx hydralazine 50 mg tablet 50 mg PO TID #270 TABLETS 04/04/25 06/22/25 Rx clopidogrel 75 mg tablet 75 mg PO DAILY #60 tabs 06/05/25 0 06/22/25 Rx amlodipine 5 mg tablet 5 mg PO QHS #90 tabs 06/22/2505/25 Rx vit C 250 mg-vit E 90 mg-zinc 40 1 tab PO BID 06/22/25 06/22/25 His tory mg-copper 1 [id number] capsule (PreserVision AREDS-2) Ejection fraction %: 65 Have you fallen in the past year?: Yes [facility] Medical History Macular degeneration 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 History of aortic stenosis Vitamin D deficiency Allergic rhinitis BPH (benign prostatic hyperplasia) Hematuria Debility Aortic stenosis Bowel obstruction Mitral valve annular calcification Atrial fibrillation with rapid ventricular response Declining functional status Cognitive deficits Vitamin D deficiency Acute metabolic encephalopathy Acute kidney injury Prolonged QT interval Left bundle branch block Anemia Hyperlipidemia Essential (primary) hypertension Surgical History History of coronary artery bypass surgery ( 07/04/19) History of aortic valve replacement with bioprosthetic valve ( 07/04/19) History of right and left heart catheterization (03/02/19) S/P partial colectomy Umbilical hernia, incarcerated (12/04/18) Family History Father Cancer Lung cancer Sister Cancer Breast cancer Pancreas cancer Social History Smoking Status: Former smoker alcohol intake: never substance use type: does not use caffeine: Yes Type: carbonated beverages and coffee eating out: 1-3 times/week ashley/baptism: Confucianist seatbelt use: always do you feel safe at home: Yes ROS Const Const: Positive for daytime sleepiness; Negative for fatigue or weakness Eyes Eyes: Negative for change in vision ENT ENT: Negative for dizziness or balance problems Cardio Chest Pain: No Palpitations: No Edema: Bilateral Resp Respiratory: Negative for SOB with activity, SOB at rest or SOB orthopnea SOB lying down GI GI: Negative nausea or heartburn Musc Musc: Negative for balance problems Neuro Neuro: Negative for dizziness, lighthe (more content not included)... [facility] Oncology Visit Reporton 04-25 Oncology Visit Report [facility] [facility] [address] [place] [address] OFFICE VISIT Date of Service: 05/22/25 1037 MR#: [id number] Acct: [id number] Name: ELIAS SHAH Rep #: [id number] : 1940 From: Geoffrey Garza MD Age/Sex: 85/M Location: [facility] [place] [facility] Status: Signed HPI Subjective Date of Service 05/22/25 Chief Complaint Anemia, MGUS History of Present Illness 85-year-old gentleman with a past medical history most notable for atherosclerotic arterial disease, hypertension, dyslipidemia, and dementia. 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 Follow-up blood work in January 2021 showed improvement of his anemia, iron therapy was discontinued but he was noted to have an elevated gammaglobulin. Serum protein electrophoresis showed faint band in the gamma region suspicious for MGUS, too small to quantify. Urine protein electrophoresis showed asymmetrical gamma and again MGUS could not be excluded. 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 History of aortic stenosis Vitamin D deficiency Allergic rhinitis BPH (benign prostatic hyperplasia) Hematuria Debility Aortic stenosis Bowel obstruction Mitral valve annular calcification Atrial fibrillation with rapid ventricular response Declining functional status Cognitive deficits Vitamin D deficiency Acute metabolic encephalopathy Acute kidney injury Prolonged QT interval Left bundle branch block Anemia Hyperlipidemia Essential (primary) hypertension Surgical History History of coronary artery bypass surgery ( 07/04/19) History of aortic valve replacement with bioprosthetic valve ( 07/04/19) History of right and left heart catheterization (03/02/19) S/P partial colectomy Umbilical hernia, incarcerated (12/04/18) Family History Father Cancer Lung cancer Sister Cancer Breast cancer Pancreas cancer Social History Smoking Status: Former smoker alcohol intake: never substance use type: does not use caffeine: Yes Type: carbonated beverages and coffee eating out: 1-3 times/week ashley/baptism: Confucianist seatbelt use: always do you feel safe at home: Yes ROS ROS Narrative History was obtained by interviewing the patient was accompanied by his sister Constitutional Constitutional: Reports systems reviewed and no addt'l complaints, except as documented and other Details: Inactive, limited by degenerative joint disease ; Denies change in weight, fatigue, fever(s) or weight loss Eyes Eyes: Reports systems reviewed and no addt'l complaints, except as documented; Denies change in vision ENT HEENT: Reports systems reviewed and no addt'l complaints, except as documented; Denies bleeding gums, epistaxis, headache(s) or mouth lesions Cardiovascular Cardiovascular: Reports systems reviewed and no addt'l complaints, except as documented; Denies chest pain with activity or edema Respiratory/Chest Respiratory/Chest: Reports systems reviewed and no addt'l complaints, except as documented; Denies cough, dyspnea or hemoptysis Gastrointestinal Gastrointestinal: Reports systems reviewed and no addt'l complaints, except as documented; Denies change in bowel habits, hematochezia or melena Genitourinary Genitourinary: Reports systems reviewed and no addt'l complaints, except as documented and urinary frequency; Denies hematuria Musculoskeletal Musculoskeletal: Reports systems reviewed and no addt'l complaints, except as documented and arthralgias Integumentary Integumentary: Reports systems reviewed and no addt'l complaints, except as documented; Denies rash Neurologic Neurologic: Reports systems reviewed and no addt'l complaints, except as documented and memory loss; Denies focal weakness, frequent falls, headache(s) or paresthesias Psychiatric Psychiatric: Reports systems reviewed and no addt'l complaints, except as documented Endocrine Endocrinology: Reports systems reviewed and no addt'l complaints, except as documented; Denies excessive sweating Hematologic/Lymphatic Hematologic/Lymphatic : Reports systems reviewed and no addt'l complaints, except as documented; Denies easy bleeding, easy bruising or lymphadenopathy Allergic/Immunologic Allergic/Immunologic: Reports systems reviewed and no addt'l complaints, except as docu (more content not included)... [facility] DAMARIS + Protein Elect, Serumon 05-09-2025 Albumin [Mass/Vol] 3.1 g/dL Normal 2.9-4.4 [facility] Comment on above: Order Comment: NUNK Performed By: #### L 503.8320, L100.0100, L3100.3425, L100.9950 ####[facility] [address] [place], [place], [id number] Albumin/Globulin [Mass ratio] 0.9 {ratio} Normal 0.7-1.7 [facility] Comment on above: Order Comment: NUNK Performed By: #### L 503.6550, L100.0100, L3100.3425, L100.9950 ####[facility] [address] [place], [address] [id number] 0.3 g/dL Normal 0.0-0.4 [facility] Comment on above: Order Comment: NUNK Performed By: #### L 503.6550, L100.0100, L3100.3425, L100.9950 ####[facility] [address] [place], [address] IDBDV-7-JMEQ 1.0 g/dL Normal 0.4-1.0 [facility] Comment on above: Order Comment: NUNK Performed By: #### L 503.6550, L100.0100, L3100.3425, L100.9950 ####[facility] [address] [place], [address] BETA GLOBULIN 1.0 g/dL Normal 0.7-1.3 [facility] Comment on above: Order Comment: NUNK Performed By: #### L 503.6550, L100.0100, L3100.3425, L100.9950 ####[facility] [address] [place], [address] GAMMA GLOBULIN 1.5 g/dL Normal 0.4-1.8 [facility] Comment on above: Order Comment: NUNK Performed By: #### L 503.6550, L100.0100, L3100.3425, L100.9950 ####[facility] [address] [place], [address] Globulin (S) [Mass/Vol] 3.8 g/dL Normal 2.2-3.9 [facility] Comment on above: Order Comment: NUNK Performed By: #### L 503.6550, L100.0100, L3100.3425, L100.9950 ####[facility] [address] [place], [address] DAMARIS RESULT,S Comment Abnormal . [facility] Comment on above: Order Comment: NUNK Result Comment: Immu nofixation shows IgM monoclonal protein with kappa light chain specificity. Immunofixation shows IgM monoclonal protein with lambda light chain specificity. Immunofixation shows IgG monoclonal protein with lambda light chain specificity. Performed By: #### L 503.6550, L100.0100, L3100.3425, L100.9950 ####[facility] [address] [place], [address] IMMUNOGLOB A QN 472 mg/dL High 61-437 [facility] Comment on above: Order Comment: NUNK Performed By: #### L 503.6550, L100.0100, L3100.3425, L100.9950 ####[facility] [address] [place], [address] IMMUNOGLOB G QN 1475 mg/dL Normal 603-1613 [facility] Comment on above: Order Comment: NUNK Performed By: #### L 503.6550, L100.0100, L3100.3425, L100.9950 ####[facility] [address] [place], [address] IMMUNOGLOB M QN 179 mg/dL High 15-143 [facility] Comment on above: Order Comment: NUNK Performed By: #### L 503.6550, L100.0100, L3100.3425, L100.9950 ####[facility] [address] [place], [address] M-William Comment: Normal Not Observed [facility] Comment on above: Order Comment: NUNK Result Comment: Kidder clonal IgM lambda = 0.2 g/dl Monoclonal IgG lambda = 0.2 g/dl Monoclonal IgM kappa = 0.1 g/dl Performed By: #### L 503.6550, L100.0100, L3100.3425, L100.9950 ####[facility] [address] [place], [place], [id number] NOTE: Comment Normal . [facility] Comment on above: Order Comment: NUNK Result Comment: Prot ein electrophoresis scan will follow via computer, mail, or inspector rubber stamp die delivery. Performed at: [address] [id number] Vice President Of Human Resources: Alcides Alicea PhD, Phone: [phone] Performed By: #### L 503.6550, L100.0100, L3100.3425, L100.9950 ####[facility] [address] [place], [place], [id number] Protein [Mass/Vol] 6.9 g/dL Normal 6.0-8.5 [facility] Comment on above: Order Comment: NUNK Performed By: #### L 503.6550, L100.0100, L3100.3425, L100.9950 ####[facility] [address] [place], [address] Absolute lymphocyte countOrd ered By: Geoffrey Garza on 05-04-2025 Lymphocytes Auto (Unsp spec) [#/Vol] 2.54 10*3/uL 0.83-4.51 [facility] Absolute neutrophil countOrd ered By: Geoffrey Garza on 05-04-2025 Neutrophils (Bld) [#/Vol] 1.3 10*3/uL Low 2.0-7.7 [facility] Albumin Elph [Mass/Vol]Order ed By: Geoffrey Garza on 05-04-2025 Albumin [Mass/Vol] 3.1 g/dL 2.9-4.4 [facility] Anion gap in Serum or Plasma Ordered By: Geoffrey Garza on 05-04-2025 Anion gap [Moles/Vol] 9 mmol/L 5-15 [facility] Automated lymphocyte count a s percentage of total leukocytesOrdered By: Geoffrey Garza on 05-04-2025 Lymphocytes/100 WBC Auto (Unsp spec) 50.5 % High 19-41 [facility] BUN/creatinine ratioOrdered By: Geoffrey Koehlerchristal on 05-04-2025 Urea nitrogen/Creatinine [Mass ratio] 11.4 mg/mg 10-20 [facility] Basophil percentageOrdered B y: Geoffrey Greg on 05-04-2025 Basophils/100 WBC (Bld) 0.4 % 0-1 [facility] Bilirubin, totalOrdered By: Geoffrey Koehlerchristal on 05-04-2025 Bilirubin [Mass/Vol] 0.33 mg/dL 0.00-1.30 [facility] CBC W/Diff, Automatedon 04-23-2024 Absolute Lymph 2.54 X10 3/uL Normal 0.83-4.51 [facility] Comment on above: Performed By: #### L 503.6550, L100.0100, L3100.3425, L100.9950 #### [facility] [address] [place], [address] Absolute Neut 1.3 X10 3/uL Low 2.0-7.7 [facility] Comment on above: Performed By: #### L 503.6550, L100.0100, L3100.3425, L100.9950 #### [facility] [address] [place], [address] Basophils/100 WBC (Bld) 0.4 % Normal 0-1 [facility] Comment on above: Performed By: #### L 503.6550, L100.0100, L3100.3425, L100.9950 #### [facility] [address] [place], [address] Eosinophils/100 WBC (Bld) 1.4 % Normal 0-5 [facility] Comment on above: Performed By: #### L 503.6550, L100.0100, L3100.3425, L100.9950 #### [facility] [address] [place], [address] Erythrocyte distribution width (RBC) [Ratio] 15.1 % High 11.6-14.6 [facility] Comment on above: Performed By: #### L 503.6550, L100.0100, L3100.3425, L100.9950 #### [facility] [address] [place], [address] Hematocrit (Bld) [Volume fraction] 36.5 % Low 40-54 [facility] Comment on above: Performed By: #### L 503.6550, L100.0100, L3100.3425, L100.9950 #### [facility] [address] [place], [address] Hemoglobin (Bld) [Mass/Vol] 11.4 g/dL Low 13.0-16.5 [facility] Comment on above: Performed By: #### L 503.6550, L100.0100, L3100.3425, L100.9950 #### [facility] [address] [place], [address] IG% 0.800 Normal 0.0-0.9 [facility] Comment on above: Result Comment: IG% - Immature Granulocytes (promyelocytes, myelocytes and metamyelocytes) > 1% indicates that a LEFT SHIFT is Present. Performed By: #### L 503.6550, L100.0100, L3100.3425, L100.9950 #### [facility] [address] [place], [address] Lymphocytes/100 WBC (Bld) 50.5 % High 19-41 [facility] Comment on above: Performed By: #### L 503.6550, L100.0100, L3100.3425, L100.9950 #### [facility] [address] [place], [address] MCH (RBC) [Entitic mass] 27.7 pg Normal 27.0-32.0 [facility] Comment on above: Performed By: #### L 503.6550, L100.0100, L3100.3425, L100.9950 #### [facility] [address] [place], [address] MCHC (RBC) [Mass/Vol] 31.2 g/dL Low 32-36 [facility] Comment on above: Performed By: #### L 503.6550, L100.0100, L3100.3425, L100.9950 #### [facility] [address] [place], [address] MCV (RBC) [Entitic vol] 88.8 fL Normal 80-94 [facility] Comment on above: Performed By: #### L 503.6550, L100.0100, L3100.3425, L100.9950 #### [facility] [address] [place], [address] Monocytes/100 WBC (Bld) 22.1 % High 0-10 [facility] Comment on above: Performed By: #### L 503.6550, L100.0100, L3100.3425, L100.9950 #### [facility] [address] [place], [address] Neutrophils/100 WBC (Bld) 24.8 % Low 47-70 [facility] Comment on above: Performed By: #### L 503.6550, L100.0100, L3100.3425, L100.9950 #### [facility] [address] [place], [address] Nucleated RBC (Bld) [#/Vol] 0 10*3/uL Normal 0-5 [facility] Comment on above: Performed By: #### L 503.6550, L100.0100, L3100.3425, L100.9950 #### [facility] [address] [place], [address] Platelet mean volume (Bld) [Entitic vol] 8.9 fL Normal 6.2-12.0 [facility] Comment on above: Performed By: #### L 503.6550, L100.0100, L3100.3425, L100.9950 #### [facility] [address] [place], [address] Platelets (Bld) [#/Vol] 210 10*3/uL Normal 150-450 [facility] Comment on above: Performed By: #### L 503.6550, L100.0100, L3100.3425, L100.9950 #### [facility] [address] [place], [address] RBC (Bld) [#/Vol] 4.11 10*6/uL Low 4.6-6.2 [facility] Comment on above: Performed By: #### L 503.6550, L100.0100, L3100.3425, L100.9950 #### [facility] [address] [place], [address] RDW SD 49.2 fl High 35.1-43.9 [facility] Comment on above: Performed By: #### L 503.6550, L100.0100, L3100.3425, L100.9950 #### [facility] [address] [place], [address] WBC (Bld) [#/Vol] 5.0 10*3/uL Normal 4.4-11.0 [facility] Comment on above: Performed By: #### L 503.6550, L100.0100, L3100.3425, L100.9950 #### [facility] [address] [place], [address] Carbon dioxide, total [Moles /volume] in Central venous bloodOrdered By: Geoffrey Garza on 05-04-2025 CO2 [Moles/Vol] 26.7 mmol/L 21.0-32.0 [facility] Chloride assayOrdered By: Cheri Garza on 05-04-2025 Chloride [Moles/Vol] 102 mmol/L 98-108 [facility] Comprehensive Metabolic Prof ilon 05-04-2025 Albumin [Mass/Vol] 3.6 g/dL Normal 3.4-4.8 [facility] Comment on above: Order Comment: UNK Performed By: #### L 500.4050, L503.0106, L503.6030 ####[facility] [address] [place], [address] Albumin/Globulin [Mass ratio] 1.0 {ratio} Normal 0.9-2.4 [facility] Comment on above: Order Comment: UNK Performed By: #### L 500.4050, L503.0106, L503.6030 ####[facility] [address] [place], [address] ALK PHOS 96 U/L Normal 40-129 [facility] Comment on above: Order Comment: UNK Performed By: #### L 500.4050, L503.0106, L503.6030 ####[facility] [address] [place], [address] ALT [Catalytic activity/Vol] 6 U/L Normal <=46 [facility] Comment on above: Order Comment: UNK Performed By: #### L 500.4050, L503.0106, L503.6030 ####[facility] [address] [place], [address] AST [Catalytic activity/Vol] 20 U/L Normal <=37 [facility] Comment on above: Order Comment: UNK Performed By: #### L 500.4050, L503.0106, L503.6030 ####[facility] [address] [place], [address] Bilirubin [Mass/Vol] 0.33 mg/dL Normal 0.00-1.30 [facility] Comment on above: Order Comment: UNK Performed By: #### L 500.4050, L503.0106, L503.6030 ####[facility] [address] [place], [address] BUN/CRE 11.4 RATIO Normal 10-20 [facility] Comment on above: Order Comment: UNK Performed By: #### L 500.4050, L503.0106, L503.6030 ####[facility] [address] [place], [address] Calcium [Mass/Vol] 8.8 mg/dL Normal 7.6-11.0 [facility] Comment on above: Order Comment: UNK Performed By: #### L 500.4050, L503.0106, L503.6030 ####[facility] [address] [place], [address] Chloride [Moles/Vol] 102 mmol/L Normal 98-108 [facility] Comment on above: Order Comment: UNK Performed By: #### L 500.4050, L503.0106, L503.6030 ####[facility] [address] [place], [address] CO2 [Moles/Vol] 26.7 mmol/L Normal 21.0-32.0 [facility] Comment on above: Order Comment: UNK Performed By: #### L 500.4050, L503.0106, L503.6030 ####[facility] [address] [place], [address] Creatinine [Mass/Vol] 1.14 mg/dL Normal 0.70-1.20 [facility] Comment on above: Order Comment: UNK Performed By: #### L 500.4050, L503.0106, L503.6030 ####[facility] [address] [place], [address] ECRCL 49.94 ml/min Low 50-250 [facility] Comment on above: Order Comment: UNK Performed By: #### L 500.4050, L503.0106, L503.6030 ####[facility] [address] [place], [address] GAP 9 Normal 5-15 [facility] Comment on above: Order Comment: UNK Performed By: #### L 500.4050, L503.0106, L503.6030 ####[facility] [address] [place], [address] GFR/1.73 sq M.predicted among non-blacks MDRD (S/P/Bld) [Vol rate/Area] 62 mL/min/{1.73_m2} Normal >60 [facility] Comment on above: Order Comment: UNK Result Comment: mL/m in/1.73m2 CKD-EPI Creatinine Equation (2020) Performed By: #### L 500.4050, L503.0106, L503.6030 ####[facility] [address] [place], [address] Globulin (S) [Mass/Vol] 3.6 g/dL Normal 2.2-4.2 [facility] Comment on above: Order Comment: UNK Performed By: #### L 500.4050, L503.0106, L503.6030 ####[facility] [address] [place], [address] Glucose [Mass/Vol] 90 mg/dL Normal 70-99 [facility] Comment on above: Order Comment: UNK Performed By: #### L 500.4050, L503.0106, L503.6030 ####[facility] [address] [place], [address] Potassium [Moles/Vol] 4.6 mmol/L Normal 3.3-5.1 [facility] Comment on above: Order Comment: UNK Performed By: #### L 500.4050, L503.0106, L503.6030 ####[facility] [address] [place], [address] Sodium [Moles/Vol] 138 mmol/L Normal 133-145 [facility] Comment on above: Order Comment: UNK Performed By: #### L 500.4050, L503.0106, L503.6030 ####[facility] [address] [place], [address] T PROT 7.2 g/dL Normal 5.9-8.4 [facility] Comment on above: Order Comment: UNK Performed By: #### L 500.4050, L503.0106, L503.6030 ####[facility] [address] [place], [address] Urea nitrogen [Mass/Vol] 13 mg/dL Normal 4-19 [facility] Comment on above: Order Comment: UNK Performed By: #### L 500.4050, L503.0106, L503.6030 ####[facility] [address] [place], [address] Eosinophil percentageOrdered By: Geoffrey Garza on 05-04-2025 Eosinophils/100 WBC (Bld) 1.4 % 0-5 [facility] Erythrocyte distribution wid th ratioOrdered By: Geoffrey Whiteheadus on 05-04-2025 Erythrocyte distribution width (RBC) [Ratio] 15.1 % High 11.6-14.6 [facility] Erythrocyte distribution wid th standard deviationOrdered By: Geoffrey Whiteheadus on 05-04-2025 Erythrocyte distribution width (RBC) [Ratio] 49.2 fl High 35.1-43.9 [facility] Ferritinon 05-04-2025 Ferritin [Mass/Vol] 78 ng/mL Normal 37-417 [facility] Comment on above: Performed By: #### L 503.6550, L100.0100, L3100.3425, L100.9950 #### [facility] [place], [address] Glomerular filtration rate ( GFR) estimation/1.73 sq m using serum, plasma, or whole bOrdered By: Geoffrey Garza on 05-04-2025 GFR/1.73 sq M.predicted among non-blacks MDRD (S/P/Bld) [Vol rate/Area] 62 mL/min/{1.73_m2} >60 [facility] Comment on above: mL/min/1.73m2 CKD-EP I Creatinine Equation (2020) Hematocrit Auto (Bld) [Volum e fraction]Ordered By: Geoffrey Garza on 05-04-2025 Hematocrit (Bld) [Volume fraction] 36.5 % Low 40-54 [facility] Hemoglobin measurementOrdere d By: Geoffrey Garza on 05-04-2025 Hemoglobin (Bld) [Mass/Vol] 11.4 g/dL Low 13.0-16.5 [facility] Immature granulocytes/100 WB C Auto (Bld)Ordered By: Geoffrey Garza on 05-04-2025 Immature granulocytes/100 WBC (Bld) 0.800 % 0.0-0.9 [facility] Comment on above: IG% - Immature Granu locytes (promyelocytes, myelocytes and metamyelocytes) > 1% indicates that a LEFT SHIFT is Present. Interpretation of serum or p lasma protein pattern by immunofixation (narrative resultOrdered By: Geoffrey Garza on 05-04-2025 Protein Fractions Immunofixation Carlin [Interp] Comment: g/dL Not Observed [facility] Comment on above: Monoclonal IgM lambd a = 0.2 g/dlMonoclonal IgG lambda = 0.2 g/dlMonoclonal IgM kappa = 0.1 g/dl Iron measurement (mass/mass) Ordered By: Geoffrey Garza on 05-04-2025 Iron (Unsp spec) [Mass/Mass] 34 ug/dL Low 65-175 [facility] Iron+Iron Binding Capacityon 05-04-2025 TIBC 222 ug/dL Low 250-450 [facility] Comment on above: Order Comment: UNK Performed By: #### L 500.4050, L503.0106, L503.6030 ####[facility] [address] [place], [address] Laboratory - Chemistry and C hemistry - challengeOrdered By: Geoffrey Garza on 05-04-2025 AST [Catalytic activity/Vol] 20 U/L <38 [facility] MCV (mean corpuscular volume ) determinationOrdered By: Geoffrey Garza on 05-04-2025 MCV (RBC) [Entitic vol] 88.8 fL 80-94 [facility] Mean corpuscular hemoglobin (MCH) determinationOrdered By: [facility] on 05-04-2025 MCH (RBC) [Entitic mass] 27.7 pg 27.0-32.0 [facility] Mean corpuscular hemoglobin concentration (MCHC) determinationOrdered By: [facility] on 05-04-2025 MCHC (RBC) [Mass/Vol] 31.2 g/dL Low 32-36 [facility] Mean platelet volume determi nationOrdered By: [facility] Center[facility] on 05-04-2025 Platelet mean volume (Bld) [Entitic vol] 8.9 fL 6.2-12.0 [facility] Monocyte percentageOrdered B y: Geoffrey Garza on 05-04-2025 Monocytes/100 WBC (Bld) 22.1 % High 0-10 [facility] Neutrophil percentageOrdered By: [facility] on 05-04-2025 Neutrophils/100 WBC (Bld) 24.8 % Low 47-70 [facility] No Panel InformationOrdered By: Geoffrey Garza on 05-04-2025 Addendum Document Comment . [facility] Comment on above: Protein electrophore sis scan will follow via computer,mail, or inspector rubber stamp die delivery.Performed at: [address] [id number] Director: Alcides Alicea PhD, Phone: [phone] Unsaturated Iron Binding Capacity 188 ug/dL Low 228-428 [facility] Nucleated red blood cell per centageOrdered By: Geoffrey Garza on 05-04-2025 Nucleated RBC/100 WBC (Bld) [Ratio] 0 % 0-5 [facility] Platelet countOrdered By: Cheri Garza on 05-04-2025 Platelets (Bld) [#/Vol] 210 10*3/uL 150-450 [facility] Potassium measurement (mass/ volume)Ordered By: Geoffrey Garza on 05-04-2025 Potassium (Unsp spec) [Mass/Vol] 4.6 mmol/L 3.3-5.1 [facility] RBC Auto (Bld) [#/Vol]Ordere d By: Geoffrey Garza on 05-04-2025 RBC (Bld) [#/Vol] 4.11 10*6/uL Low 4.6-6.2 [facility] Retic Panelon 05-04-2025 IM RET FRACTION 25.40 High 3.00-15.90 [facility] Comment on above: Performed By: #### L 503.6550, L100.0100, L3100.3425, L100.9950 #### [facility] [address] [place], [address] RET-HE 28.5 pg Low 30-35 [facility] Comment on above: Performed By: #### L 503.6550, L100.0100, L3100.3425, L100.9950 #### [facility] [address] [place], [address] Retic Count 2.45 High 0.5-1.5 [facility] Comment on above: Performed By: #### L 503.6550, L100.0100, L3100.3425, L100.9950 #### [facility] [address] [place], [address] Reticulocyte hemoglobin equi valent (RET-He) measurementOrdered By: Geoffrey Garza on 05-04-2025 Hemoglobin (Reticulocytes) [Entitic mass] 28.5 pg Low 30-35 [facility] Reticulocytes Auto (Bld) [#/ Vol]Ordered By: Geoffrey Garza on 06-12-2025 Reticulocytes/100 RBC (Bld) 2.45 % High 0.5-1.5 [facility] Serum creatinine measurement (mass/volume)Ordered By: Geoffrey Garza on 05-04-2025 Creatinine [Mass/Vol] 1.14 mg/dL 0.70-1.20 [facility] Serum globulin measurement ( mass/volume)Ordered By: Geoffrey Garza on 05-04-2025 Globulin (S) [Mass/Vol] 3.8 g/dL 2.2-3.9 [facility] Serum glucose measurement (m ass/volume)Ordered By: Geoffrey Garza on 05-04-2025 Glucose [Mass/Vol] 90 mg/dL 70-99 [facility] Serum or plasma IgA measurem ent (mass/volume)Ordered By: Geoffrey Garza on 05-04-2025 IgA [Mass/Vol] 472 mg/dL High 61-437 [facility] Serum or plasma IgG measurem ent (mass/volume)Ordered By: Geoffrey Garza on 05-04-2025 IgG [Mass/Vol] 1475 mg/dL 603-1613 [facility] Serum or plasma alanine mccoy otransferase (ALT) measurementOrdered By: Geoffrey Garza on 05-04-2025 ALT [Catalytic activity/Vol] 6 U/L <47 [facility] Serum or plasma albumin donna urement (mass/volume)Ordered By: Geoffrey Garza on 05-04-2025 Albumin [Mass/Vol] 3.6 g/dL 3.4-4.8 [facility] Serum or plasma albumin/glob ulin mass ratioOrdered By: Geoffrey Garza on 05-04-2025 Albumin/Globulin [Mass ratio] 1.0 {ratio} 0.9-2.4 [facility] Serum or plasma alkaline salvador sphatase measurementOrdered By: Geoffrey Garza on 05-04-2025 ALP [Catalytic activity/Vol] 96 U/L 40-129 [facility] Serum or plasma alpha 1 glob ulin measurement by electrophoresis (mass/volume)Ordered By: Geoffrey Garza on 05-04-2025 Alpha 1 globulin Elph [Mass/Vol] 0.3 g/dL 0.0-0.4 [facility] Alpha 1 globulin Elph [Mass/Vol] 1.0 g/dL 0.4-1.0 [facility] Serum or plasma beta globuli n measurement by electrophoresis (mass/volume)Ordered By: Geoffrey Garza on 05-04-2025 Beta globulin Elph [Mass/Vol] 1.0 g/dL 0.7-1.3 [facility] Serum or plasma calcium donna urement (mass/volume)Ordered By: Geoffrey Garza on 05-04-2025 Calcium [Mass/Vol] 8.8 mg/dL 7.6-11.0 [facility] Serum or plasma ferritin yosef surement (mass/volume)Ordered By: Geoffrey Garza on 05-04-2025 Ferritin [Mass/Vol] 78 ng/mL 37-417 [facility] Serum or plasma gamma globul in measurement by electrophoresis (mass/volume)Ordered By: Geoffrey Garza on 05-04-2025 Gamma globulin Elph [Mass/Vol] 1.5 g/dL 0.4-1.8 [facility] Serum or plasma immunoelectr ophoresis interpretation (nominal result)Ordered By: Geoffrey Garza on 05-04-2025 Interpretation IEP [Interp] Comment High . [facility] Comment on above: Immunofixation shows IgM monoclonal protein with kappalight chain specificity.Immunofixation shows IgM monoclonal protein with lambdalight chain specificity.Immunofixation shows IgG monoclonal protein with lambdalight chain specificity. Serum or plasma iron saturat ion measurement (mass fraction)Ordered By: Geoffrey Garza on 05-04-2025 Iron saturation [Mass fraction] 15.0 % 9-55 [facility] Comment on above: Previous reported re sult: 15.0 %Edited by: RADAMES on 05/04/25:1655 Serum or plasma protein donna urement (mass/volume)Ordered By: Geoffrey Garza on 05-04-2025 Protein [Mass/Vol] 6.9 g/dL 6.0-8.5 [facility] Serum or plasma urea nitroge n measurement (mass/volume)Ordered By: Geoffrey Garza on 05-04-2025 Urea nitrogen [Mass/Vol] 13 mg/dL 4-19 [facility] Sodium levelOrdered By: Leroy Garza on 05-04-2025 Sodium [Moles/Vol] 138 mmol/L 133-145 [facility] Total proteinOrdered By: Polo sabillon Greg on 05-04-2025 Protein [Mass/Vol] 7.2 g/dL 5.9-8.4 [facility] Vitamin B12on 05-04-2025 Cobalamin (Vitamin B12) [Mass/Vol] 1485 pg/mL High 180-914 [facility] Comment on above: Performed By: #### L 500.4050, L503.0106, L503.6030 ####[facility] [address] [place], [address] Vitamin B12 ser/plasOrdered By: Leroygeorge Greg on 05-04-2025 Cobalamin (Vitamin B12) [Mass/Vol] 1485 pg/mL High 180-914 [facility] White blood cell (WBC) count Ordered By: Leroygeorge Garza on 05-04-2025 WBC (Bld) [#/Vol] 5.0 10*3/uL 4.4-11.0 [facility] Absolute lymphocyte countOrd ered By: Husam Khan on 12-29-2024 Lymphocytes Auto (Unsp spec) [#/Vol] 2.27 10*3/uL 0.83-4.51 [facility] Absolute neutrophil countOrd ered By: Husam Khan on 12-29-2024 Neutrophils (Bld) [#/Vol] 1.2 10*3/uL Low 2.0-7.7 [facility] Albumin to globulin ratioOrd ered By: Husam Khan on 12-29-2024 Albumin/Globulin [Mass ratio] 0.7 {ratio} Low 0.9-2.4 [facility] Automated lymphocyte count a s percentage of total leukocytesOrdered By: Husam Khan on 12-29-2024 Lymphocytes/100 WBC Auto (Unsp spec) 53.0 % High 19-41 [facility] Basophil percentageOrdered B y: Husam Khan on 12-29-2024 Basophils/100 WBC (Bld) 0.2 % 0-1 [facility] Bilirubin, totalOrdered By: Husam Khan on 12-29-2024 Bilirubin [Mass/Vol] 0.40 mg/dL 0.20-1.00 [facility] Comment on above: For patients on eltr ombopag therapy, use of Dimension [place] TBIL is not recommended. Blood urea nitrogen (BUN)/cr eatinine ratioOrdered By: Husam Khan on 12-29-2024 Urea nitrogen/Creatinine [Mass ratio] 9.6 mg/mg Low 10-20 [facility] CBC W/Diff, Automatedon Absolute Lymph 2.27 X10 3/uL Normal 0.83-4.51 [facility] Comment on above: Performed By: #### L 500.4050, L506.1000, L501.9520, L100.0100 ####[facility] [address] [place], [address] Absolute Neut 1.2 X10 3/uL Low 2.0-7.7 [facility] Comment on above: Performed By: #### L 500.4050, L506.1000, L501.9520, L100.0100 ####[facility] [address] [place], [address] Basophils/100 WBC (Bld) 0.2 % Normal 0-1 [facility] Comment on above: Performed By: #### L 500.4050, L506.1000, L501.9520, L100.0100 ####[facility] [address] [place], [address] Eosinophils/100 WBC (Bld) 1.6 % Normal 0-5 [facility] Comment on above: Performed By: #### L 500.4050, L506.1000, L501.9520, L100.0100 ####[facility] [address] [place], [address] Erythrocyte distribution width (RBC) [Ratio] 15.0 % High 11.6-14.6 [facility] Comment on above: Performed By: #### L 500.4050, L506.1000, L501.9520, L100.0100 ####[facility] [address] [place], [address] Hematocrit (Bld) [Volume fraction] 38.9 % Low 40-54 [facility] Comment on above: Performed By: #### L 500.4050, L506.1000, L501.9520, L100.0100 ####[facility] [address] [place], [address] Hemoglobin (Bld) [Mass/Vol] 12.3 g/dL Low 13.0-16.5 [facility] Comment on above: Performed By: #### L 500.4050, L506.1000, L501.9520, L100.0100 ####[facility] [address] [place], [address] IG% 0.500 Normal 0.0-0.9 [facility] Comment on above: Result Comment: IG% - Immature Granulocytes (promyelocytes, myelocytes and metamyelocytes) > 1% indicates that a LEFT SHIFT is Present. Performed By: #### L 500.4050, L506.1000, L501.9520, L100.0100 ####[facility] [address] [place], [address] Lymphocytes/100 WBC (Bld) 53.0 % High 19-41 [facility] Comment on above: Performed By: #### L 500.4050, L506.1000, L501.9520, L100.0100 ####[facility] [address] [place], [address] MCH (RBC) [Entitic mass] 28.7 pg Normal 27.0-32.0 [facility] Comment on above: Performed By: #### L 500.4050, L506.1000, L501.9520, L100.0100 ####[facility] [address] [place], [address] MCHC (RBC) [Mass/Vol] 31.6 g/dL Low 32-36 [facility] Comment on above: Performed By: #### L 500.4050, L506.1000, L501.9520, L100.0100 ####[facility] [address] [place], [address] MCV (RBC) [Entitic vol] 90.7 fL Normal 80-94 [facility] Comment on above: Performed By: #### L 500.4050, L506.1000, L501.9520, L100.0100 ####[facility] [address] [place], [address] Monocytes/100 WBC (Bld) 17.5 % High 0-10 [facility] Comment on above: Performed By: #### L 500.4050, L506.1000, L501.9520, L100.0100 ####[facility] [address] [place], [address] Neutrophils/100 WBC (Bld) 27.2 % Low 47-70 [facility] Comment on above: Performed By: #### L 500.4050, L506.1000, L501.9520, L100.0100 ####[facility] [address] [place], [address] Nucleated RBC (Bld) [#/Vol] 0 10*3/uL Normal 0-5 [facility] Comment on above: Performed By: #### L 500.4050, L506.1000, L501.9520, L100.0100 ####[facility] [address] [place], [address] Platelet mean volume (Bld) [Entitic vol] 9.7 fL Normal 6.2-12.0 [facility] Comment on above: Performed By: #### L 500.4050, L506.1000, L501.9520, L100.0100 ####[facility] [address] [place], [address] Platelets (Bld) [#/Vol] 187 10*3/uL Normal 150-450 [facility] Comment on above: Performed By: #### L 500.4050, L506.1000, L501.9520, L100.0100 ####[facility] [address] [place], [address] RBC (Bld) [#/Vol] 4.29 10*6/uL Low 4.6-6.2 [facility] Comment on above: Performed By: #### L 500.4050, L506.1000, L501.9520, L100.0100 ####[facility] [address] [place], [address] RDW SD 49.2 fl High 35.1-43.9 [facility] Comment on above: Performed By: #### L 500.4050, L506.1000, L501.9520, L100.0100 ####[facility] [address] [place], [address] WBC (Bld) [#/Vol] 4.3 10*3/uL Low 4.4-11.0 [facility] Comment on above: Performed By: #### L 500.4050, L506.1000, L501.9520, L100.0100 ####[facility] [address] [place], [address] Carbon dioxide measurementOr dered By: Husam Khan on 12-29-2024 CO2 [Moles/Vol] 30.0 mmol/L 21.0-32.0 [facility] Chloride measurementOrdered By: Husam Khan on 12-29-2024 Chloride [Moles/Vol] 103 mmol/L 98-107 [facility] Comprehensive Metabolic Prof ilon 12-29-2024 Albumin [Mass/Vol] 3.1 g/dL Low 3.2-5.0 [facility] Comment on above: Performed By: #### L 500.4050, L506.1000, L501.9520, L100.0100 ####[facility] [address] [place], [address] Albumin/Globulin [Mass ratio] 0.7 {ratio} Low 0.9-2.4 [facility] Comment on above: Performed By: #### L 500.4050, L506.1000, L501.9520, L100.0100 ####[facility] [address] [place], [address] ALK P 97 U/L Normal 45-117 [facility] Comment on above: Performed By: #### L 500.4050, L506.1000, L501.9520, L100.0100 ####[facility] [address] [place], [address] ALT [Catalytic activity/Vol] 11 U/L Low 16-61 [facility] Comment on above: Performed By: #### L 500.4050, L506.1000, L501.9520, L100.0100 ####[facility] [address] [place], [address] AST [Catalytic activity/Vol] 15 U/L Normal 15-37 [facility] Comment on above: Performed By: #### L 500.4050, L506.1000, L501.9520, L100.0100 ####[facility] [address] [place], [address] Bilirubin [Mass/Vol] 0.40 mg/dL Normal 0.20-1.00 [facility] Comment on above: Result Comment: For patients on eltrombopag therapy, use of Dimension [place] TBIL is not recommended. Performed By: #### L 500.4050, L506.1000, L501.9520, L100.0100 ####[facility] [address] [place], [address] BUN/CRE 9.6 RATIO Low 10-20 [facility] Comment on above: Performed By: #### L 500.4050, L506.1000, L501.9520, L100.0100 ####[facility] [address] [place], [address] CA,Total 8.7 mg/dL Normal 8.5-10.1 [facility] Comment on above: Performed By: #### L 500.4050, L506.1000, L501.9520, L100.0100 ####[facility] [address] [place], [address] Chloride [Moles/Vol] 103 mmol/L Normal 98-107 [facility] Comment on above: Performed By: #### L 500.4050, L506.1000, L501.9520, L100.0100 ####[facility] [address] [place], [address] CO2 [Moles/Vol] 30.0 mmol/L Normal 21.0-32.0 [facility] Comment on above: Performed By: #### L 500.4050, L506.1000, L501.9520, L100.0100 ####[facility] [address] [place], [address] Creatinine [Mass/Vol] 1.15 mg/dL Normal 0.70-1.30 [facility] Comment on above: Result Comment: The validity of the calculated GFR GFRAA in patients over 70 years has not been determined. Clinical correlation is essential. Performed By: #### L 500.4050, L506.1000, L501.9520, L100.0100 ####[facility] [address] [place], [address] EST GFR - AA 77 mL/min Normal >60 [facility] Comment on above: Result Comment: Afri can Salvadorean GFR Calc Performed By: #### L 500.4050, L506.1000, L501.9520, L100.0100 ####[facility] [address] [place], [address] GAP 5 Normal 5-15 [facility] Comment on above: Performed By: #### L 500.4050, L506.1000, L501.9520, L100.0100 ####[facility] [address] [place], [address] GFR/1.73 sq M.predicted among non-blacks MDRD (S/P/Bld) [Vol rate/Area] 64 mL/min/{1.73_m2} Normal >60 [facility] Comment on above: Result Comment: Non- GFR Calc Performed By: #### L 500.4050, L506.1000, L501.9520, L100.0100 ####[facility] [address] [place], [address] Globulin (S) [Mass/Vol] 4.4 g/dL High 2.2-4.2 [facility] Comment on above: Performed By: #### L 500.4050, L506.1000, L501.9520, L100.0100 ####[facility] [address] [place], [address] Glucose [Mass/Vol] 115 mg/dL High 74-106 [facility] Comment on above: Result Comment: Fast ing Glucose result from 100 to 125 mg/dL suggests IMPAIRED HOMEOSTASIS per A.D.A. criteria. Performed By: #### L 500.4050, L506.1000, L501.9520, L100.0100 ####[facility] [address] [place], [address] Potassium [Moles/Vol] 3.9 mmol/L Normal 3.5-5.1 [facility] Comment on above: Performed By: #### L 500.4050, L506.1000, L501.9520, L100.0100 ####[facility] [address] [place], [address] Sodium [Moles/Vol] 138 mmol/L Normal 136-145 [facility] Comment on above: Performed By: #### L 500.4050, L506.1000, L501.9520, L100.0100 ####[facility] [address] [place], [address] T PROT 7.5 g/dL Normal 6.4-8.2 [facility] Comment on above: Performed By: #### L 500.4050, L506.1000, L501.9520, L100.0100 ####[facility] [address] [place], [address] Urea nitrogen [Mass/Vol] 11 mg/dL Normal 7-18 [facility] Comment on above: Performed By: #### L 500.4050, L506.1000, L501.9520, L100.0100 ####[facility] [address] [place], [address] Eosinophil percentageOrdered By: Husam Khan on 12-29-2024 Eosinophils/100 WBC (Bld) 1.6 % 0-5 [facility] Erythrocyte distribution wid th ratioOrdered By: Husam Khan on 12-29-2024 Erythrocyte distribution width (RBC) [Ratio] 15.0 % High 11.6-14.6 [facility] Erythrocyte distribution wid th standard deviationOrdered By: Husam Khan on 12-29-2024 Erythrocyte distribution width (RBC) [Ratio] 49.2 fl High 35.1-43.9 [facility] Glomerular filtration rate ( GFR) estimationOrdered By: Husam Khan on 12-29-2024 GFR/1.73 sq M.predicted among non-blacks MDRD (S/P/Bld) [Vol rate/Area] 64 mL/min/{1.73_m2} >60 [facility] Comment on above: Non- GFR Calc Glucose measurementOrdered B y: Husam Khan on 12-29-2024 Glucose [Mass/Vol] 115 mg/dL High 74-106 [facility] [facility] Comment on above: Fasting Glucose resu lt from 100 to 125 mg/dL suggests IMPAIRED HOMEOSTASIS per A.D.A. criteria. Hematocrit Auto (Bld) [Volum e fraction]Ordered By: Husam Khan on 12-29-2024 Hematocrit (Bld) [Volume fraction] 38.9 % Low 40-54 [facility] Hemoglobin measurementOrdere d By: Husam Khan on 12-29-2024 Hemoglobin (Bld) [Mass/Vol] 12.3 g/dL Low 13.0-16.5 [facility] Immature granulocytes/100 WB C Auto (Bld)Ordered By: Husam Khan on 12-29-2024 Immature granulocytes/100 WBC (Bld) 0.500 % 0.0-0.9 [facility] Comment on above: IG% - Immature Granu locytes (promyelocytes, myelocytes and metamyelocytes) > 1% indicates that a LEFT SHIFT is Present. Laboratory - Chemistry and C hemistry - challengeOrdered By: Husam Khan on 12-29-2024 AST [Catalytic activity/Vol] 15 U/L 15-37 [facility] MCV (mean corpuscular volume ) determinationOrdered By: Husam Khan on 12-29-2024 MCV (RBC) [Entitic vol] 90.7 fL 80-94 [facility] Mean corpuscular hemoglobin (MCH) determinationOrdered By: Husam Khan 12-29-2024 MCH (RBC) [Entitic mass] 28.7 pg 27.0-32.0 [facility] Mean corpuscular hemoglobin concentration (MCHC) determinationOrdered By: Husam Khan on 12-29-2024 MCHC (RBC) [Mass/Vol] 31.6 g/dL Low 32-36 [facility] Mean platelet volume determi nationOrdered By: Husam Khan on 12-29-2024 Platelet mean volume (Bld) [Entitic vol] 9.7 fL 6.2-12.0 [facility] Monocyte percentageOrdered B y: Husam Khan on 12-29-2024 Monocytes/100 WBC (Bld) 17.5 % High 0-10 [facility] Neutrophil percentageOrdered By: Husam Khan on 12-29-2024 Neutrophils/100 WBC (Bld) 27.2 % Low 47-70 [facility] Nucleated red blood cell per centageOrdered By: Husam Khan on 12-29-2024 Nucleated RBC/100 WBC (Bld) [Ratio] 0 % 0-5 [facility] Platelet countOrdered By: Kennedy Khan on 12-29-2024 Platelets (Bld) [#/Vol] 187 10*3/uL 150-450 [facility] Potassium measurementOrdered By: Husam Khan on 12-29-2024 Potassium [Moles/Vol] 3.9 mmol/L 3.5-5.1 [facility] RBC Auto (Bld) [#/Vol]Ordere d By: Husam Khan on 12-29-2024 RBC (Bld) [#/Vol] 4.29 10*6/uL Low 4.6-6.2 [facility] Serum anion gap measurementO rdered By: Husam Khan on 12-29-2024 Anion gap [Moles/Vol] 5 mmol/L 5-15 [facility] Serum globulin measurementOr dered By: Husam Khan on 12-29-2024 Globulin (S) [Mass/Vol] 4.4 g/dL High 2.2-4.2 [facility] Serum or plasma alanine mccoy otransferase (ALT) measurementOrdered By: Husam Khan on 12-29-2024 ALT [Catalytic activity/Vol] 11 U/L Low 16-61 [facility] Serum or plasma albumin donna urement (mass/volume)Ordered By: Husam Khan on 12-29-2024 Albumin [Mass/Vol] 3.1 g/dL Low 3.2-5.0 [facility] Serum or plasma alkaline salvador sphatase measurementOrdered By: Husam Khan 12-29-2024 ALP [Catalytic activity/Vol] 97 U/L 45-117 [facility] Serum or plasma calcium donna urement (mass/volume)Ordered By: Husam Khan on 12-29-2024 Calcium [Mass/Vol] 8.7 mg/dL 8.5-10.1 [facility] Serum or plasma creatinine m easurement (mass/volume)Ordered By: Husam Khan on 12-29-2024 Creatinine [Mass/Vol] 1.15 mg/dL 0.70-1.30 [facility] Comment on above: The validity of the calculated GFR & GFRAA in patients over 70 years has not been determined. Clinical correlation is essential. Serum or plasma thyroid stim ulating hormone (TSH) measurement (units/volume)Ordered By: Husam Khan on 12-29-2024 TSH Qn 3.070 uIU/mL 0.358-3.740 [facility] Serum or plasma urea nitroge n measurement (mass/volume)Ordered By: Husam Khan on 12-29-2024 Urea nitrogen [Mass/Vol] 11 mg/dL 7-18 [facility] Sodium levelOrdered By: Husam Khan on 12-29-2024 Sodium [Moles/Vol] 138 mmol/L 136-145 [facility] Thyroid Stim Hormone (TSH)on 12-29-2024 TSH 3.070 uIU/mL Normal 0.358-3.740 [facility] Comment on above: Performed By: #### L 500.4050, L506.1000, L501.9520, L100.0100 ####[facility] [id number] [place], [address] Total proteinOrdered By: Husam Khan on 12-29-2024 Protein [Mass/Vol] 7.5 g/dL 6.4-8.2 [facility] Vitamin D,25 Hydroxyon 12-29 Vitamin D 25-OH 13.7 ng/mL Normal [facility] Comment on above: Result Comment: Inna min D 25(OH) Status Range Deficiency <20 ng/mL (50nmol/L) Insufficiency 20 - 30 ng/mL (50 - 75 nmol/L) Sufficiency 30 - 100 ng/mL (75 - 250 nmol/L) Toxicity >100 ng/mL (>250 nmol/L) Performed By: #### L 500.4050, L506.1000, L501.9520, L100.0100 ####[facility] [id number] [place], [address] White blood cell (WBC) count Ordered By: Husam Khan on 12-29-2024 WBC (Bld) [#/Vol] 4.3 10*3/uL Low 4.4-11.0 [facility] Basophil percentageOrdered B y: Marcy Roque on 09-02-2023 Basophil percentage 3.3 mg/dL 2.5-4.9 [facility] Chloride [Moles/Vol] 107 mmol/L 98-107 [facility] Glucose [Mass/Vol] 102 mg/dL 74-106 [facility] Comment on above: Fasting Glucose resu lt from 100 to 125 mg/dL suggests IMPAIRED HOMEOSTASIS per A.D.A. criteria. Potassium [Moles/Vol] 4.2 mmol/L 3.5-5.1 [facility] Sodium [Moles/Vol] 139 mmol/L 136-145 [facility] Laboratory - Chemistry and C hemistry - challengeOrdered By: Marcy Roque on 09-02-2023 CO2 [Moles/Vol] 28.0 mmol/L 21.0-32.0 [facility] Urea nitrogen/Creatinine [Mass ratio] 13.6 mg/mg 10-20 [facility] No Panel InformationOrdered By: Marcy Roque on 09-02-2023 Estimated GFR (MDRD) Amer 66 mL/min >60 [facility] Comment on above: GFR Calc Estimated GFR (MDRD) Non-Af Amer 55 mL/min >60 [facility] Comment on above: Non- GFR Calc Serum or plasma albumin donna urement (mass/volume)Ordered By: Marcy Roque on 09-02-2023 Albumin [Mass/Vol] 3.5 g/dL 3.2-5.0 [facility] Serum or plasma calcium donna urement (mass/volume)Ordered By: Marcy Roque on 09-02-2023 Calcium [Mass/Vol] 8.9 mg/dL 8.5-10.1 [facility] Serum or plasma creatinine m easurement (mass/volume)Ordered By: Marcy Roque on 09-02-2023 Creatinine [Mass/Vol] 1.32 mg/dL 0.70-1.30 [facility] Comment on above: The validity of the calculated GFR & GFRAA in patients over 70 years has not been determined. Clinical correlation is essential. Serum or plasma urea nitroge n measurement (mass/volume)Ordered By: Marcy Roque on 09-02-2023 Urea nitrogen [Mass/Vol] 18 mg/dL 7-18 [facility] Urine creatinine measurement (mass/volume)Ordered By: Marcy Roque on 09-02-2023 Creatinine (U) [Mass/Vol] 240.00 mg/dL NO RANGE EST. [facility] Urine protein measurement (m ass/volume)Ordered By: Marcy Roque on 09-02-2023 Protein (U) [Mass/Vol] 49.5 mg/dL 0.0-11.8 [facility] Urine protein/creatinine mas s ratioOrdered By: Marcy Roque on 09-02-2023 Protein/Creatinine (U) [Mass ratio] 206 mg/g CRE 0-200 [facility] Absolute lymphocyte countOrd ered By: Geoffrey Garza on 07-07-2023 Lymphocytes Auto (Unsp spec) [#/Vol] 2.20 10*3/uL 0.83-4.51 [facility] Basophil percentageOrdered B y: Geoffrey Garza on 07-07-2023 Basophils/100 WBC (Bld) 0.2 % 0-1 [facility] Bilirubin [Mass/Vol] 0.50 mg/dL 0.20-1.00 [facility] Comment on above: For patients on eltr ombopag therapy, use of Dim[employer] [place] TBIL is not recommended. Chloride [Moles/Vol] 106 mmol/L 98-107 [facility] Eosinophils/100 WBC (Bld) 1.6 % 0-5 [facility] Glucose [Mass/Vol] 112 mg/dL 74-106 [facility] Comment on above: Fasting Glucose resu lt from 100 to 125 mg/dL suggests IMPAIRED HOMEOSTASIS per A.D.A. criteria. Neutrophils (Bld) [#/Vol] 1.4 10*3/uL 2.0-7.7 [facility] Neutrophils/100 WBC (Bld) 32.0 % 47-70 [facility] Potassium [Moles/Vol] 3.3 mmol/L 3.5-5.1 [facility] Protein [Mass/Vol] 6.8 g/dL 6.4-8.2 [facility] Sodium [Moles/Vol] 139 mmol/L 136-145 [facility] WBC (Bld) [#/Vol] 4.3 10*3/uL 4.4-11.0 [facility] Blood erythrocytes count (nu mber/volume)Ordered By: Geoffrey Garza on 07-07-2023 RBC (Bld) [#/Vol] 4.12 10*6/uL 4.6-6.2 [facility] Blood hemoglobin measurement (mass/volume)Ordered By: Geoffrey Garza on 07-07-2023 Hemoglobin (Bld) [Mass/Vol] 12.6 g/dL 13.0-16.5 [facility] Blood lymphocytes/100 leukoc ytesOrdered By: Geoffrey Garza on 07-07-2023 Lymphocytes/100 WBC (Bld) 51.5 % 19-41 [facility] Blood monocytes/100 leukocyt esOrdered By: Geoffrey Garza on 07-07-2023 Monocytes/100 WBC (Bld) 14.5 % 0-10 [facility] Blood platelet mean volumeOr dered By: Geoffrey Garza on 07-07-2023 Platelet mean volume (Bld) [Entitic vol] 9.8 fL 6.2-12.0 [facility] Determination of erythrocyte mean corpuscular volume (MCV)Ordered By: Geoffrey Garza on 07-07-2023 MCV (RBC) [Entitic vol] 95.4 fL 80-94 [facility] Hematocrit Auto (Bld) [Volum e fraction]Ordered By: Geoffrey Garza on 07-07-2023 Hematocrit (Bld) [Volume fraction] 39.3 % 40-54 [facility] Iron measurement (mass/mass) Ordered By: Geoffrey Garza on 07-07-2023 Iron (Unsp spec) [Mass/Mass] 64 ug/dL 65-175 [facility] Laboratory - Chemistry and C hemistry - challengeOrdered By: Geoffrey Garza on 07-07-2023 ALP [Catalytic activity/Vol] 94 U/L 45-117 [facility] ALT [Catalytic activity/Vol] 13 U/L 16-61 [facility] CO2 [Moles/Vol] 29.0 mmol/L 21.0-32.0 [facility] Globulin (S) [Mass/Vol] 3.7 g/dL 2.2-4.2 [facility] Urea nitrogen/Creatinine [Mass ratio] 9.8 mg/mg 10-20 [facility] Laboratory - Hematology and Cell countsOrdered By: Geoffrey Garza on 07-07-2023 Erythrocyte distribution width (RBC) [Entitic vol] 46.0 fL 35.1-43.9 [facility] Erythrocyte distribution width (RBC) [Ratio] 13.5 % 11.6-14.6 [facility] Immature granulocytes/100 WBC (Bld) 0.200 % 0.0-0.9 [facility] Comment on above: IG% - Immature Granu locytes (promyelocytes, myelocytes and metamyelocytes) > 1% indicates that a LEFT SHIFT is Present. MCH (RBC) [Entitic mass] 30.6 pg 27.0-32.0 [facility] Nucleated RBC/100 WBC (Bld) [Ratio] 0 % 0-5 [facility] MCHC Auto (RBC) [Mass/Vol]Or dered By: Geoffrey Garza on 07-07-2023 MCHC (RBC) [Mass/Vol] 32.1 g/dL 32-36 [facility] No Panel InformationOrdered By: Geoffrey Garza on 07-07-2023 Estimated GFR (MDRD) Amer 73 mL/min >60 [facility] Comment on above: GFR Calc Estimated GFR (MDRD) Non-Af Amer 60 mL/min >60 [facility] Comment on above: Non- GFR Calc Total Iron Binding Capacity 247 ug/dL 250-450 [facility] Platelets bldOrdered By: Polo Garza on 07-07-2023 Platelets (Bld) [#/Vol] 168 10*3/uL 150-450 [facility] Serum or plasma albumin donna urement (mass/volume)Ordered By: Geoffrey Garza on 07-07-2023 Albumin [Mass/Vol] 3.1 g/dL 3.2-5.0 [facility] Serum or plasma albumin/glob ulin mass ratioOrdered By: [facility]23 Albumin/Globulin [Mass ratio] 0.8 {ratio} 0.9-2.4 [facility] Serum or plasma calcium donna urement (mass/volume)Ordered By: Geoffrey Garza on 07-07-2023 Calcium [Mass/Vol] 8.5 mg/dL 8.5-10.1 [facility] Serum or plasma creatinine m easurement (mass/volume)Ordered By: Geoffrey Garza on 07-07-2023 Creatinine [Mass/Vol] 1.22 mg/dL 0.70-1.30 [facility] Comment on above: The validity of the calculated GFR & GFRAA in patients over 70 years has not been determined. Clinical correlation is essential. Serum or plasma ferritin yosef surement (mass/volume)Ordered By: [facility] on 07-07-2023 Ferritin [Mass/Vol] 51 ng/mL 26-388 [facility] Serum or plasma iron saturat ion measurement (mass fraction)Or[facility] By: [facility] on 07-07-2023 Iron saturation [Mass fraction] 25.9 % 15.0-55.0 [facility] Serum or plasma urea nitroge n measurement (mass/volume)Ordered By: [facility] Greg on 07-07-2023 Urea nitrogen [Mass/Vol] 12 mg/dL 7-18 [facility] Thin prep Papanicolaou smear with manual screeningOrdered By: [facility]2023 Thin prep Papanicolaou smear with manual screening 16 U/L 15-37 [facility] Thin prep Papanicolaou smear with manual screening 4 5-15 [facility] Absolute lymphocyte countOrd ered By: Husam Khan on 06-25-2023 Lymphocytes Auto (Unsp spec) [#/Vol] 2.16 10*3/uL 0.83-4.51 [facility] Basophil percentageOrdered B y: Husam Khan on 06-25-2023 Basophils/100 WBC (Bld) 0.4 % 0-1 [facility] Bilirubin [Mass/Vol] 0.40 mg/dL 0.20-1.00 [facility] Comment on above: For patients on eltr ombopag therapy, use of Dim[employer] [place] TBIL is not recommended. Chloride [Moles/Vol] 108 mmol/L 98-107 [facility] Eosinophils/100 WBC (Bld) 1.5 % 0-5 [facility] Glucose [Mass/Vol] 103 mg/dL 74-106 [facility] Comment on above: Fasting Glucose resu lt from 100 to 125 mg/dL suggests IMPAIRED HOMEOSTASIS per A.D.A. criteria. Neutrophils (Bld) [#/Vol] 1.9 10*3/uL 2.0-7.7 [facility] Neutrophils/100 WBC (Bld) 39.6 % 47-70 [facility] Potassium [Moles/Vol] 3.7 mmol/L 3.5-5.1 [facility] Protein [Mass/Vol] 7.4 g/dL 6.4-8.2 [facility] Sodium [Moles/Vol] 140 mmol/L 136-145 [facility] WBC (Bld) [#/Vol] 4.7 10*3/uL 4.4-11.0 [facility] Blood erythrocytes count (nu mber/volume)Ordered By: Husam Khan on 06-25-2023 RBC (Bld) [#/Vol] 4.04 10*6/uL 4.6-6.2 [facility] Blood hemoglobin measurement (mass/volume)Ordered By: Husam Khan on 06-25-2023 Hemoglobin (Bld) [Mass/Vol] 13.0 g/dL 13.0-16.5 [facility] Blood lymphocytes/100 leukoc ytesOrdered By: Husam Khan on 06-25-2023 Lymphocytes/100 WBC (Bld) 45.6 % 19-41 [facility] Blood monocytes/100 leukocyt esOrdered By: Husam Khan on 06-25-2023 Monocytes/100 WBC (Bld) 12.7 % 0-10 [facility] Blood platelet mean volumeOr dered By: Husam Khan on 06-25-2023 Platelet mean volume (Bld) [Entitic vol] 10.0 fL 6.2-12.0 [facility] Determination of erythrocyte mean corpuscular volume (MCV)Ordered By: Husam Khan on 08-03-2023 MCV (RBC) [Entitic vol] 94.3 fL 80-94 [facility] Hematocrit Auto (Bld) [Volum e fraction]Ordered By: Husam Khan on 06-25-2023 Hematocrit (Bld) [Volume fraction] 38.1 % 40-54 [facility] Laboratory - Chemistry and C hemistry - challengeOrdered By: Husam Khan on 06-25-2023 ALP [Catalytic activity/Vol] 94 U/L 45-117 [facility] ALT [Catalytic activity/Vol] 15 U/L 16-61 [facility] CO2 [Moles/Vol] 24.0 mmol/L 21.0-32.0 [facility] Globulin (S) [Mass/Vol] 4.2 g/dL 2.2-4.2 [facility] Urea nitrogen/Creatinine [Mass ratio] 12.6 mg/mg 10-20 [facility] Laboratory - Hematology and Cell countsOrdered By: Husam Khan on 06-25-2023 Erythrocyte distribution width (RBC) [Entitic vol] 46.2 fL 35.1-43.9 [facility] Erythrocyte distribution width (RBC) [Ratio] 13.4 % 11.6-14.6 [facility] Immature granulocytes/100 WBC (Bld) 0.200 % 0.0-0.9 [facility] Comment on above: IG% - Immature Granu locytes (promyelocytes, myelocytes and metamyelocytes) > 1% indicates that a LEFT SHIFT is Present. MCH (RBC) [Entitic mass] 32.2 pg 27.0-32.0 [facility] Nucleated RBC/100 WBC (Bld) [Ratio] 0 % 0-5 [facility] MCHC Auto (RBC) [Mass/Vol]Or dered By: Husam Khan on 06-25-2023 MCHC (RBC) [Mass/Vol] 34.1 g/dL 32-36 [facility] No Panel InformationOrdered By: Husam Khan on 06-25-2023 Estimated GFR (MDRD) Amer 69 mL/min >60 [facility] Comment on above: GFR Calc Estimated GFR (MDRD) Non-Af Amer 57 mL/min >60 [facility] Comment on above: Non- GFR Calc Thyroid Stimulating Hormone (TSH) 2.81 uIU/mL 0.358-3.74 [facility] Vitamin D 25-Hydroxy 13.2 ng/mL [facility] Comment on above: Vitamin D 25(OH) Sta tus Range Deficiency <20 ng/mL (50nmol/L) Insufficiency 20 - 30 ng/mL (50 - 75 nmol/L) Sufficiency 30 - 100 ng/mL (75 - 250 nmol/L) Toxicity >100 ng/mL (>250 nmol/L) Platelets bldOrdered By: Husam Khan on 06-25-2023 Platelets (Bld) [#/Vol] 187 10*3/uL 150-450 [facility] Serum or plasma albumin donna urement (mass/volume)Ordered By: Husam Khan on 06-25-2023 Albumin [Mass/Vol] 3.2 g/dL 3.2-5.0 [facility] Serum or plasma albumin/glob ulin mass ratioOrdered By: Husam Khan on 06-25-2023 Albumin/Globulin [Mass ratio] 0.8 {ratio} 0.9-2.4 [facility] Serum or plasma calcium donna urement (mass/volume)Ordered By: Husam Khan on 06-25-2023 Calcium [Mass/Vol] 8.2 mg/dL 8.5-10.1 [facility] Serum or plasma creatinine m easurement (mass/volume)Ordered By: Husam Khan on 06-25-2023 Creatinine [Mass/Vol] 1.27 mg/dL 0.70-1.30 [facility] Comment on above: The validity of the calculated GFR & GFRAA in patients over 70 years has not been determined. Clinical correlation is essential. Serum or plasma urea nitroge n measurement (mass/volume)Ordered By: Husam Khan on 06-25-2023 Urea nitrogen [Mass/Vol] 16 mg/dL 7-18 [facility] Thin prep Papanicolaou smear with manual screeningOrdered By: Husam Khan on 06-25-2023 Thin prep Papanicolaou smear with manual screening 19 U/L 15-37 [facility] Thin prep Papanicolaou smear with manual screening 8 5-15 [facility] Culture, urineOrdered By: Dr Sara Roque on 02-12-2023 Bacteria identified Cx Nom (U) Mixed Gram Pos & Gram Neg Org [facility] 24 hour urine alpha 2 globul in/total protein ratio by electrophoresis (mass fraction)Ordered By: Dr. Roque on 02-10-2023 Alpha 2 globulin Elph (24H U) [Mass fraction] 7.5 % . [facility] 24 hour urine beta globulin/ total protein ratio by electrophoresis (mass fraction)Ordered By: Dr. Roque on 02-10-2023 Beta globulin Elph (24H U) [Mass fraction] 13.1 % . [facility] 24 hour urine gamma globulin /total protein ratio by electrophoresis (mass fraction)Ordered By: Dr. Roque on 02-10-2023 Gamma globulin Elph (24H U) [Mass fraction] 13.9 % . [facility] Amorphous sediment detection in urine sediment by light microscopyOrdered By: Dr. Roque on 02-10-2023 Amorphous sediment LM Ql (Urine sed) 2+ [facility] Basophil percentageOrdered B y: Dr. Roque on 02-10-2023 Basophil percentage 0 SEEN /hpf 0-5 [facility] Bilirubin Test strip Ql (U)O rdered By: Dr. Roque on 02-10-2023 Bilirubin Ql (U) Negative Negative [facility] Ketones Test strip Ql (U)Ord ered By: Dr. Roque on 02-10-2023 Ketones Ql (U) Negative Negative [facility] Mucus LM Ql (Urine sed)Order ed By: Dr. Roque on 02-10-2023 Mucus Ql (Urine sed) 0 SEEN /hpf [facility] Nitrite Test strip Ql (U)Ord ered By: Dr. Roque on 02-10-2023 Nitrite Ql (U) Negative Negative [facility] No Panel InformationOrdered By: Dr. Roque on 02-10-2023 Urine Immunofixation PEP Note Comment . [facility] Comment on above: Protein electrophore sis scan will follow via computer,mail, or inspector rubber stamp die delivery.Performed at: [facility] [employer] [id number] Director: Alcides Alicea PhD, Phone: [phone] Protein Test strip Ql (U)Ord ered By: Dr. Roque on 02-10-2023 Protein Ql (U) 30 mg/dl Negative [facility] Squamous epithelial cells de tection in urine sediment by light microscopyOrdered By: Dr. Roque on 02-10-2023 Epithelial cells.squamous LM Ql (Urine sed) 0 SEEN /hpf 0-5 [facility] Urine albumin/total protein mass ratio by electrophoresisOrdered By: Dr. Roque on 02-10-2023 Albumin Elph (U) [Mass fraction] 61.3 % . [facility] Urine alpha 1 globulin/total protein ratio by electrophoresis (mass fraction)Ordered By: Dr. Roque on 02-10-2023 Alpha 1 globulin Elph (U) [Mass fraction] 4.1 % . [facility] Urine blood detectionOrdered By: Dr. Roque on 02-10-2023 RBC Ql (U) Negative Negative [facility] RBC Ql (U) 0 SEEN /hpf 0-5 [facility] Urine clarityOrdered By: Dr. Roque on 02-10-2023 Clarity (U) Clear Clear [facility] Urine color determinationOrd ered By: Dr. Roque on 02-10-2023 Color (U) Yellow Yellow [facility] Urine creatinine measurement (mass/volume)Ordered By: Dr. Roque on 02-10-2023 Creatinine (U) [Mass/Vol] 184.00 mg/dL NO RANGE EST. [facility] Urine glucose detectionOrder ed By: Dr. Roque on 02-10-2023 Glucose Ql (U) Normal mg/dl Normal [facility] Urine leukocyte esterase det ection by dipstickOrdered By: Dr. Roque on 02-10-2023 Leukocyte esterase Test strip Ql (U) Negative Negative [facility] Urine monoclonal protein/tot al protein mass ratio by electrophoresisOrdered By: Dr. Roque on 02-10-2023 Protein.monoclonal Elph (U) [Mass fraction] See comment [facility] Comment on above: NOT OBSERVED Urine pHOrdered By: Dr. Roque on 02-10-2023 pH (U) 5.0 [pH] 5.0 - 8.0 [facility] Urine protein measurement (m ass/volume)Ordered By: Dr. Roque on 02-10-2023 Protein (U) [Mass/Vol] 57.7 mg/dL 0.0-11.8 [facility] Protein (U) [Mass/Vol] 54.4 mg/dL Not Estab. [facility] Urine protein/creatinine mas s ratioOrdered By: Dr. Roque on 02-10-2023 Protein/Creatinine (U) [Mass ratio] 314 mg/g CRE 0-200 [facility] Urine sediment bacteria coun t by microscopy (number/high power field)Ordered By: Dr. Roque on 02-10-2023 Bacteria LM.HPF (Urine sed) [#/Area] 1 /[HPF] None Seen [facility] Urine specific gravity measu rementOrdered By: Dr. Roque on 02-10-2023 Specific gravity (U) [Rel density] 1.015 1.002-1.030 [facility] Urobilinogen Auto test strip Ql (U)Ordered By: Dr. Roque on 02-10-2023 Urobilinogen Ql (U) Normal mg/dl Normal [facility] Absolute lymphocyte countOrd ered By: Dr. Khan on 12-25-2022 Lymphocytes Auto (Unsp spec) [#/Vol] 2.24 10*3/uL 0.83-4.51 [facility] Basophil percentageOrdered B y: Dr. Khan on 12-25-2022 Basophils/100 WBC (Bld) 0.2 % 0-1 [facility] Bilirubin [Mass/Vol] 0.40 mg/dL 0.20-1.00 [facility] Comment on above: For patients on eltr ombopag therapy, use of Dim[employer] [place] TBIL is not recommended. Chloride [Moles/Vol] 103 mmol/L 98-107 [facility] Eosinophils/100 WBC (Bld) 1.3 % 0-5 [facility] Glucose [Mass/Vol] 101 mg/dL 74-106 [facility] Comment on above: Fasting Glucose resu lt from 100 to 125 mg/dL suggests IMPAIRED HOMEOSTASIS per A.D.A. criteria. Neutrophils (Bld) [#/Vol] 1.6 10*3/uL 2.0-7.7 [facility] Neutrophils/100 WBC (Bld) 35.8 % 47-70 [facility] Potassium [Moles/Vol] 3.8 mmol/L 3.5-5.1 [facility] Protein [Mass/Vol] 7.5 g/dL 6.4-8.2 [facility] Sodium [Moles/Vol] 138 mmol/L 136-145 [facility] WBC (Bld) [#/Vol] 4.5 10*3/uL 4.4-11.0 [facility] Blood erythrocytes count (nu mber/volume)Ordered By: Dr. Khan on 12-25-2022 RBC (Bld) [#/Vol] 4.43 10*6/uL 4.6-6.2 [facility] Blood hemoglobin measurement (mass/volume)Ordered By: Dr. Khan on 12-25-2022 Hemoglobin (Bld) [Mass/Vol] 13.4 g/dL 13.0-16.5 [facility] Blood lymphocytes/100 leukoc ytesOrdered By: Dr. Khan on 12-25-2022 Lymphocytes/100 WBC (Bld) 50.2 % 19-41 [facility] Blood monocytes/100 leukocyt esOrdered By: Dr. Khan on 12-25-2022 Monocytes/100 WBC (Bld) 12.3 % 0-10 [facility] Blood platelet mean volumeOr dered By: Dr. Khan on 12-25-2022 Platelet mean volume (Bld) [Entitic vol] 9.6 fL 6.2-12.0 [facility] Determination of erythrocyte mean corpuscular volume (MCV)Ordered By: Dr. Khan on 12-25-2022 MCV (RBC) [Entitic vol] 93.9 fL 80-94 [facility] Hematocrit Auto (Bld) [Volum e fraction]Ordered By: Dr. Khan on 12-25-2022 Hematocrit (Bld) [Volume fraction] 41.6 % 40-54 [facility] [facility] - Chemistry and C hemistry - challengeOrdered By: Dr. Khan on 12-25-2022 ALP [Catalytic activity/Vol] 90 U/L 45-117 [facility] ALT [Catalytic activity/Vol] 20 U/L 16-61 [facility] CO2 [Moles/Vol] 26.0 mmol/L 21.0-32.0 [facility] Globulin (S) [Mass/Vol] 4.1 g/dL 2.2-4.2 [facility] Urea nitrogen/Creatinine [Mass ratio] 9.9 mg/mg 10-20 [facility] Laboratory - Hematology and Cell countsOrdered By: Dr. Khan on 12-25-2022 Erythrocyte distribution width (RBC) [Entitic vol] 45.6 fL 35.1-43.9 [facility] Erythrocyte distribution width (RBC) [Ratio] 13.2 % 11.6-14.6 [facility] Immature granulocytes/100 WBC (Bld) 0.200 % 0.0-0.9 [facility] Comment on above: IG% - Immature Granu locytes (promyelocytes, myelocytes and metamyelocytes) > 1% indicates that a LEFT SHIFT is Present. MCH (RBC) [Entitic mass] 30.2 pg 27.0-32.0 [facility] Nucleated RBC/100 WBC (Bld) [Ratio] 0 % 0-5 [facility] MCHC Auto (RBC) [Mass/Vol]Or dered By: Dr. Khan on 12-25-2022 MCHC (RBC) [Mass/Vol] 32.2 g/dL 32-36 [facility] No Panel InformationOrdered By: Dr. Khan on 12-25-2022 Estimated GFR (MDRD) Amer 67 mL/min >60 [facility] Comment on above: GFR Calc Estimated GFR (MDRD) Non-Af Amer 55 mL/min >60 [facility] Comment on above: Non- GFR Calc Thyroid Stimulating Hormone (TSH) 1.95 uIU/mL 0.358-3.74 [facility] Vitamin D 25-Hydroxy 14.6 ng/mL [facility] Comment on above: Vitamin D 25(OH) Sta tus Range Deficiency <20 ng/mL (50nmol/L) Insufficiency 20 - 30 ng/mL (50 - 75 nmol/L) Sufficiency 30 - 100 ng/mL (75 - 250 nmol/L) Toxicity >100 ng/mL (>250 nmol/L) Platelets bldOrdered By: Dr. Khan on 12-25-2022 Platelets (Bld) [#/Vol] 198 10*3/uL 150-450 [facility] Serum or plasma albumin donna urement (mass/volume)Ordered By: Dr. Khan on 12-25-2022 Albumin [Mass/Vol] 3.4 g/dL 3.2-5.0 [facility] Serum or plasma albumin/glob ulin mass ratioOrdered By: Dr. Khan on 12-25-2022 Albumin/Globulin [Mass ratio] 0.8 {ratio} 0.9-2.4 [facility] Serum or plasma calcium donna urement (mass/volume)Ordered By: Dr. Khan on 12-25-2022 Calcium [Mass/Vol] 8.8 mg/dL 8.5-10.1 [facility] Serum or plasma creatinine m easurement (mass/volume)Ordered By: Dr. Khan on 12-25-2022 Creatinine [Mass/Vol] 1.31 mg/dL 0.70-1.30 [facility] Comment on above: The validity of the calculated GFR & GFRAA in patients over 70 years has not been determined. Clinical correlation is essential. Serum or plasma urea nitroge n measurement (mass/volume)Ordered By: Dr. Khan on 12-25-2022 Urea nitrogen [Mass/Vol] 13 mg/dL 7-18 [facility] Thin prep Papanicolaou smear with manual screeningOrdered By: Dr. Khan on 12-25-2022 Thin prep Papanicolaou smear with manual screening 17 U/L 15-37 [facility] Thin prep Papanicolaou smear with manual screening 9 5-15 [facility] Laboratory - Microbiology an d Antimicrobial susceptibilityOrdered By: Dr. Khan on 10-20-2022 SARS-CoV-2 (COVID-19) RNA TRICIA+probe Ql (Unsp spec) Not detected Not Detect [facility] Comment on above: Normal Reference Ran ge: Not DetectedMethod:(RT-PCR) real-time reverse transcriptase PCRLuminex OBINNA Instrument*The Food and Drug Administration (FDA) has issued an Emergency Use Authorization (EAU) for the OBINNA SARS-CoV-2 Assay for the rapid detection of the virus that causes COVID-19. This test has been validated, but the FDAs independent review of this validation is pending.*Negative results do not preclude infection and should not be used as the sole basis for treatment or patient management. Optimum specimen types and timing for peak viral levels during infections caused by SARS-CoV-2 have not been determined. Collection of multiple specimens from the same patient may be necessary to detect the virus. The possibility of a false negative result should be considered if the patient has clinical presentation or has had recent exposure. No Panel InformationOrdered By: Dr. Khan on 10-20-2022 Influenza Types A,B Direct FA (RYLAN) [facility] RSV Ag EIAOrdered By: Dr. Kaleigh spencer on 10-20-2022 RSV Ag Immune stain Ql (Tiss) [facility] Basophil percentageon 2021 Basophil percentage 2.9 mg/dL 2.5-4.9 [facility] Work Phone: Chloride [Moles/Vol] 103 mmol/L 98-107 [facility] Work Phone: Glucose [Mass/Vol] 127 mg/dL 74-106 [facility] Work Phone: Comment on above: Fasting Glucose resu lt greater than or equal to 126 mg/dL suggests DIABETES MELLITUS per A.D.A. criteria. Potassium [Moles/Vol] 3.8 mmol/L 3.5-5.1 [facility] Work Phone: Sodium [Moles/Vol] 140 mmol/L 136-145 [facility] Work Phone: WBC (Bld) [#/Vol] 4.6 10*3/uL 4.4-11.0 [facility] Work Phone: Blood erythrocytes count (nu mber/volume)on 08-12-2022 RBC (Bld) [#/Vol] 4.40 10*6/uL 4.6-6.2 [facility] Work Phone: Blood hemoglobin measurement (mass/volume)on 08-12-2022 Hemoglobin (Bld) [Mass/Vol] 13.6 g/dL 13.0-16.5 [facility] Work Phone: Blood platelet mean volumeon 08-12-2022 Platelet mean volume (Bld) [Entitic vol] 9.6 fL 6.2-12.0 [facility] Work Phone: Determination of erythrocyte mean corpuscular volume (MCV)on 08-12-2022 MCV (RBC) [Entitic vol] 95.0 fL 80-94 [facility] Work Phone: Hematocrit Auto (Bld) [Volum e fraction]on 08-12-2022 Hematocrit (Bld) [Volume fraction] 41.8 % 40-54 [facility] Work Phone: Laboratory - Chemistry and C hemistry - challengeon 08-12-2022 CO2 [Moles/Vol] 29.0 mmol/L 21.0-32.0 [facility] Work Phone: Urea nitrogen/Creatinine [Mass ratio] 7.7 mg/mg - [facility] Work Phone: Laboratory - Hematology and Cell countson 08-12-2022 Erythrocyte distribution width (RBC) [Entitic vol] 46.3 fL 35.1-43.9 [facility] Work Phone: Erythrocyte distribution width (RBC) [Ratio] 13.2 % 11.6-14.6 [facility] Work Phone: MCH (RBC) [Entitic mass] 30.9 pg 27.0-32.0 [facility] Work Phone: MCHC Auto (RBC) [Mass/Vol]on 08-12-2022 MCHC (RBC) [Mass/Vol] 32.5 g/dL 32-36 [facility] Work Phone: No Panel Informationon 08-12 Estimated GFR (MDRD) Amer 68 mL/min >60 [facility] Work Phone: Comment on above: GFR Calc Estimated GFR (MDRD) Non-Af Amer 56 mL/min >60 [facility] Work Phone: Comment on above: Non- GFR Calc Platelets bldon 08-12-2022 Platelets (Bld) [#/Vol] 167 10*3/uL 150-450 [facility] Work Phone: Serum or plasma albumin donna urement (mass/volume)on 08-12-2022 Albumin [Mass/Vol] 3.3 g/dL 3.2-5.0 [facility] Work Phone: Serum or plasma calcium donna urement (mass/volume)on 08-12-2022 Calcium [Mass/Vol] 8.9 mg/dL 8.5-10.1 [facility] Work Phone: Serum or plasma creatinine m easurement (mass/volume)on 08-12-2022 Creatinine [Mass/Vol] 1.30 mg/dL 0.70-1.30 [facility] Work Phone: Comment on above: The validity of the calculated GFR & GFRAA in patients over 70 years has not been determined. Clinical correlation is essential. Serum or plasma urea nitroge n measurement (mass/volume)on 08-12-2022 Urea nitrogen [Mass/Vol] 10 mg/dL 7-18 [facility] Work Phone: Absolute lymphocyte counton 07-08-2022 Lymphocytes Auto (Unsp spec) [#/Vol] 1.83 10*3/uL 0.83-4.51 [facility] Work Phone: Albumin Elph [Mass/Vol]on Albumin [Mass/Vol] 3.4 g/dL 2.9-4.4 [facility] Work Phone: Basophil percentageon 2021 Basophils/100 WBC (Bld) 0.2 % 0-1 [facility] Work Phone: Bilirubin [Mass/Vol] 0.40 mg/dL 0.20-1.00 [facility] Work Phone: Comment on above: For patients on eltr ombopag therapy, use of Dimension [place] TBIL is not recommended. Chloride [Moles/Vol] 105 mmol/L 98-107 [facility] Work Phone: Eosinophils/100 WBC (Bld) 4.0 % 0-5 [facility] Work Phone: Glucose [Mass/Vol] 123 mg/dL 74-106 [facility] Work Phone: Comment on above: Fasting Glucose resu lt from 100 to 125 mg/dL suggests IMPAIRED HOMEOSTASIS per A.D.A. criteria. Neutrophils (Bld) [#/Vol] 1.5 10*3/uL 2.0-7.7 [facility] Work Phone: Neutrophils/100 WBC (Bld) 35.0 % 47-70 [facility] Work Phone: Potassium [Moles/Vol] 3.7 mmol/L 3.5-5.1 [facility] Work Phone: Protein [Mass/Vol] 7.2 g/dL 6.4-8.2 [facility] Work Phone: Sodium [Moles/Vol] 140 mmol/L 136-145 [facility] Work Phone: WBC (Bld) [#/Vol] 4.2 10*3/uL 4.4-11.0 [facility] Work Phone: Blood erythrocytes count (nu mber/volume)on 07-08-2022 RBC (Bld) [#/Vol] 4.26 10*6/uL 4.6-6.2 [facility] Work Phone: Blood hemoglobin measurement (mass/volume)on 07-08-2022 Hemoglobin (Bld) [Mass/Vol] 12.8 g/dL 13.0-16.5 [facility] Work Phone: Blood lymphocytes/100 leukoc yteson 07-08-2022 Lymphocytes/100 WBC (Bld) 43.6 % 19-41 [facility] Work Phone: Blood monocytes/100 leukocyt eson 07-08-2022 Monocytes/100 WBC (Bld) 16.7 % 0-10 [facility] Work Phone: Blood platelet mean volumeon 07-08-2022 Platelet mean volume (Bld) [Entitic vol] 9.2 fL 6.2-12.0 [facility] Work Phone: Determination of erythrocyte mean corpuscular volume (MCV)on 07-08-2022 MCV (RBC) [Entitic vol] 92.5 fL 80-94 [facility] Work Phone: Hematocrit Auto (Bld) [Volum e fraction]on 07-08-2022 Hematocrit (Bld) [Volume fraction] 39.4 % 40-54 [facility] Work Phone: Interpretation of serum or p lasma protein pattern by immunofixation (narrative resulton 07-08-2022 Protein Fractions Immunofixation [place] [Interp] See comment [facility] Work Phone: Comment on above: MONOCLONAL IGG LAMBD A = 0.2 G/DLDUE TO THE SMALL QUANTITY OF MONOCLONAL IGM KAPPA, UNABLE TOQUANTITATE THE M-SPIKE Iron measurement (mass/mass) on 07-08-2022 Iron (Unsp spec) [Mass/Mass] 51 ug/dL 65-175 [facility] Work Phone: Laboratory - Chemistry and C hemistry - challengeon 07-08-2022 ALP [Catalytic activity/Vol] 95 U/L 45-117 [facility] Work Phone: ALT [Catalytic activity/Vol] 15 U/L 16-61 [facility] Work Phone: CO2 [Moles/Vol] 29.0 mmol/L 21.0-32.0 [facility] Work Phone: Cobalamin (Vitamin B12) [Mass/Vol] 1123 pg/mL 211-911 [facility] Work Phone: Urea nitrogen/Creatinine [Mass ratio] 10.4 mg/mg 10-20 [facility] Work Phone: Laboratory - Hematology and Cell countson 07-08-2022 Erythrocyte distribution width (RBC) [Entitic vol] 44.1 fL 35.1-43.9 [facility] Work Phone: Erythrocyte distribution width (RBC) [Ratio] 13.1 % 11.6-14.6 [facility] Work Phone: Immature granulocytes/100 WBC (Bld) 0.500 % 0.0-0.9 [facility] Work Phone: Comment on above: IG% - Immature Granu locytes (promyelocytes, myelocytes and metamyelocytes) > 1% indicates that a LEFT SHIFT is Present. MCH (RBC) [Entitic mass] 30.0 pg 27.0-32.0 [facility] Work Phone: Nucleated RBC/100 WBC (Bld) [Ratio] 0 % 0-5 [facility] Work Phone: MCHC Auto (RBC) [Mass/Vol]on 07-08-2022 MCHC (RBC) [Mass/Vol] 32.5 g/dL 32-36 [facility] Work Phone: No Panel Informationon 07-08 Addendum Document Comment . [facility] Work Phone: Comment on above: Protein electrophore sis scan will follow via computer,mail, or inspector rubber stamp die delivery.Performed at: [address] [id number] Director: Alcides Alicea PhD, Phone: [phone] Estimated GFR (MDRD) Amer 65 mL/min >60 [facility] Work Phone: Comment on above: GFR Calc Estimated GFR (MDRD) Non-Af Amer 54 mL/min >60 [facility] Work Phone: Comment on above: Non- GFR Calc Total Iron Binding Capacity 250 ug/dL 250-450 [facility] Work Phone: Platelets bldon 07-08-2022 Platelets (Bld) [#/Vol] 163 10*3/uL 150-450 [facility] Work Phone: Serum [id number] measu rement by electrophoresison 07-08-2022 Alpha 1 globulin Elph [Mass/Vol] 0.2 g/dL 0.0-0.4 [facility] Work Phone: Alpha 1 globulin Elph [Mass/Vol] 0.9 g/dL 0.4-1.0 [facility] Work Phone: Serum globulin measurement ( mass/volume)on 07-08-2022 Globulin (S) [Mass/Vol] 3.3 g/dL 2.2-3.9 [facility] Work Phone: Serum or plasma IgA measurem ent (mass/volume)on 07-08-2022 IgA [Mass/Vol] 464 mg/dL 61-437 [facility] Work Phone: Serum or plasma IgG measurem ent (mass/volume)on 07-08-2022 IgG [Mass/Vol] 1344 mg/dL 603-1613 [facility] Work Phone: Serum or plasma IgM measurem ent (mass/volume)on 07-08-2022 IgM [Mass/Vol] 148 mg/dL 15-143 [facility] Work Phone: Serum or plasma albumin donna urement (mass/volume)on 07-08-2022 Albumin [Mass/Vol] 3.2 g/dL 3.2-5.0 [facility] Work Phone: Serum or plasma albumin/glob ulin mass ratioon 07-08-2022 Albumin/Globulin [Mass ratio] 0.8 {ratio} 0.9-2.4 [facility] Work Phone: Serum or plasma beta globuli n measurement by electrophoresis (mass/volume)on 07-08-2022 Beta globulin Elph [Mass/Vol] 1.0 g/dL 0.7-1.3 [facility] Work Phone: Serum or plasma calcium donna urement (mass/volume)on 07-08-2022 Calcium [Mass/Vol] 8.7 mg/dL 8.5-10.1 [facility] Work Phone: Serum or plasma creatinine m easurement (mass/volume)on 07-08-2022 Creatinine [Mass/Vol] 1.34 mg/dL 0.70-1.30 [facility] Work Phone: Comment on above: The validity of the calculated GFR & GFRAA in patients over 70 years has not been determined. Clinical correlation is essential. Serum or plasma ferritin yosef surement (mass/volume)on 07-08-2022 Ferritin [Mass/Vol] 54 ng/mL 26-388 [facility] Work Phone: Serum or plasma gamma globul in measurement by electrophoresis (mass/volume)on 07-08-2022 Gamma globulin Elph [Mass/Vol] 1.3 g/dL 0.4-1.8 [facility] Work Phone: Serum or plasma immunoelectr ophoresis interpretation (nominal result)on 07-08-2022 Interpretation IEP [Interp] Comment . [facility] Work Phone: Comment on above: Immunofixation shows IgG monoclonal protein with lambdalight chain specificity.Immunofixation shows IgM monoclonal protein with kappalight chain specificity. Serum or plasma iron saturat ion measurement (mass fraction)on 07-08-2022 Iron saturation [Mass fraction] 20.4 % 15.0-55.0 [facility] Work Phone: Serum or plasma urea nitroge n measurement (mass/volume)on 07-08-2022 Urea nitrogen [Mass/Vol] 14 mg/dL 7-18 [facility] Work Phone: Thin prep Papanicolaou smear with manual screeningon 07-08-2022 Thin prep Papanicolaou smear with manual screening 18 U/L 15-37 [facility] Work Phone: Thin prep Papanicolaou smear with manual screening 6 5-15 [facility] Work Phone: Thin prep Papanicolaou smear with manual screening 1.1 0.7-1.7 [facility] Work Phone: Total protein bloodon 2021 Protein [Mass/Vol] 6.7 g/dL 6.0-8.5 [facility] Work Phone: Absolute lymphocyte counton 06-19-2022 Lymphocytes Auto (Unsp spec) [#/Vol] 1.86 10*3/uL 0.83-4.51 [facility] Work Phone: [phone] Basophil percentageon 2021 Basophils/100 WBC (Bld) 0.4 % 0-1 [facility] Work Phone: Bilirubin [Mass/Vol] 0.40 mg/dL 0.20-1.00 [facility] Work Phone: Comment on above: For patients on eltr ombopag therapy, use of Dimension [place] TBIL is not recommended. Chloride [Moles/Vol] 103 mmol/L 98-107 [facility] Work Phone: Eosinophils/100 WBC (Bld) 2.6 % 0-5 [facility] Work Phone: Glucose [Mass/Vol] 96 mg/dL 74-106 [facility] Work Phone: Neutrophils (Bld) [#/Vol] 1.8 10*3/uL 2.0-7.7 [facility] Work Phone: Neutrophils/100 WBC (Bld) 39.8 % 47-70 [facility] Work Phone: Potassium [Moles/Vol] 3.8 mmol/L 3.5-5.1 [facility] Work Phone: [phone] Protein [Mass/Vol] 7.4 g/dL 6.4-8.2 [facility] Work Phone: Sodium [Moles/Vol] 137 mmol/L 136-145 [facility] Work Phone: [phone] WBC (Bld) [#/Vol] 4.6 10*3/uL 4.4-11.0 [facility] Work Phone: Blood erythrocytes count (nu mber/volume)on 06-19-2022 RBC (Bld) [#/Vol] 4.38 10*6/uL 4.6-6.2 [facility] Work Phone: Blood hemoglobin measurement (mass/volume)on 06-19-2022 Hemoglobin (Bld) [Mass/Vol] 13.3 g/dL 13.0-16.5 [facility] Work Phone: Blood lymphocytes/100 leukoc yteson 06-19-2022 Lymphocytes/100 WBC (Bld) 40.6 % 19-41 [facility] Work Phone: Blood monocytes/100 leukocyt eson 06-19-2022 Monocytes/100 WBC (Bld) 16.4 % 0-10 [facility] Work Phone: Blood platelet mean volumeon 06-19-2022 Platelet mean volume (Bld) [Entitic vol] 10.0 fL 6.2-12.0 [facility] Work Phone: Determination of erythrocyte mean corpuscular volume (MCV)on 06-19-2022 MCV (RBC) [Entitic vol] 90.9 fL 80-94 [facility] Work Phone: Hematocrit Auto (Bld) [Volum e fraction]on 06-19-2022 Hematocrit (Bld) [Volume fraction] 39.8 % 40-54 [facility] Work Phone: Laboratory - Chemistry and C hemistry - challengeon 06-19-2022 ALP [Catalytic activity/Vol] 95 U/L 45-117 [facility] Work Phone: ALT [Catalytic activity/Vol] 18 U/L 16-61 [facility] Work Phone: CO2 [Moles/Vol] 27.0 mmol/L 21.0-32.0 [facility] Work Phone: Globulin (S) [Mass/Vol] 4.1 g/dL 2.2-4.2 [facility] Work Phone: Urea nitrogen/Creatinine [Mass ratio] 10.3 mg/mg 10-20 [facility] Work Phone: Laboratory - Hematology and Cell countson 06-19-2022 Erythrocyte distribution width (RBC) [Entitic vol] 44.1 fL 35.1-43.9 [facility] Work Phone: Erythrocyte distribution width (RBC) [Ratio] 13.3 % 11.6-14.6 [facility] Work Phone: Immature granulocytes/100 WBC (Bld) 0.200 % 0.0-0.9 [facility] Work Phone: Comment on above: IG% - Immature Granu locytes (promyelocytes, myelocytes and metamyelocytes) > 1% indicates that a LEFT SHIFT is Present. MCH (RBC) [Entitic mass] 30.4 pg 27.0-32.0 [facility] Work Phone: Nucleated RBC/100 WBC (Bld) [Ratio] 0 % 0-5 [facility] Work Phone: MCHC Auto (RBC) [Mass/Vol]on 06-19-2022 MCHC (RBC) [Mass/Vol] 33.4 g/dL 32-36 [facility] Work Phone: No Panel Informationon 06-19 Estimated GFR (MDRD) Amer 70 mL/min >60 [facility] Work Phone: Comment on above: GFR Calc Estimated GFR (MDRD) Non-Af Amer 58 mL/min >60 [facility] Work Phone: Comment on above: Non- GFR Calc Thyroid Stimulating Hormone (TSH) 2.13 uIU/mL 0.358-3.74 [facility] Work Phone: Vitamin D 25-Hydroxy 24.2 ng/mL [facility] Work Phone: Comment on above: Vitamin D 25(OH) Sta tus Range Deficiency <20 ng/mL (50nmol/L) Insufficiency 20 - 30 ng/mL (50 - 75 nmol/L) Sufficiency 30 - 100 ng/mL (75 - 250 nmol/L) Toxicity >100 ng/mL (>250 nmol/L) Platelets bldon 06-19-2022 Platelets (Bld) [#/Vol] 175 10*3/uL 150-450 [facility] Work Phone: Serum or plasma albumin donna urement (mass/volume)on 06-19-2022 Albumin [Mass/Vol] 3.3 g/dL 3.2-5.0 [facility] Work Phone: Serum or plasma albumin/glob ulin mass ratioon 06-19-2022 Albumin/Globulin [Mass ratio] 0.8 {ratio} 0.9-2.4 [facility] Work Phone: Serum or plasma calcium donna urement (mass/volume)on 06-19-2022 Calcium [Mass/Vol] 8.6 mg/dL 8.5-10.1 [facility] Work Phone: Serum or plasma creatinine m easurement (mass/volume)on 06-19-2022 Creatinine [Mass/Vol] 1.26 mg/dL 0.70-1.30 [facility] Work Phone: Comment on above: The validity of the calculated GFR & GFRAA in patients over 70 years has not been determined. Clinical correlation is essential. Serum or plasma urea nitroge n measurement (mass/volume)on 06-19-2022 Urea nitrogen [Mass/Vol] 13 mg/dL 7-18 [facility] Work Phone: Thin prep Papanicolaou smear with manual screeningon 06-19-2022 Thin prep Papanicolaou smear with manual screening 18 U/L 15-37 [facility] Work Phone: Thin prep Papanicolaou smear with manual screening 7 5-15 [facility] Work Phone: Absolute lymphocyte counton 03-04-2022 Lymphocytes Auto (Unsp spec) [#/Vol] 1.88 10*3/uL 0.83-4.51 [facility] Work Phone: Basophil percentageon 2021 Basophils/100 WBC (Bld) 0.5 % 0-1 [facility] Work Phone: Bilirubin [Mass/Vol] 0.50 mg/dL 0.20-1.00 [facility] Work Phone: Comment on above: For patients on eltr ombopag therapy, use of Dimension [place] TBIL is not recommended. Chloride [Moles/Vol] 104 mmol/L 98-107 [facility]: Eosinophils/100 WBC (Bld) 1.0 % 0-5 [facility] Work Phone: Glucose [Mass/Vol] 122 mg/dL 74-106 [facility] Work Phone: Comment on above: Fasting Glucose resu lt from 100 to 125 mg/dL suggests IMPAIRED HOMEOSTASIS per A.D.A. criteria. Neutrophils (Bld) [#/Vol] 1.7 10*3/uL 2.0-7.7 [facility] Work Phone: Neutrophils/100 WBC (Bld) 40.1 % 47-70 [facility] Work Phone: Potassium [Moles/Vol] 3.8 mmol/L 3.5-5.1 [facility] Work Phone: Protein [Mass/Vol] 7.3 g/dL 6.4-8.2 [facility] Work Phone: Sodium [Moles/Vol] 138 mmol/L 136-145 [facility] Work Phone: WBC (Bld) [#/Vol] 4.2 10*3/uL 4.4-11.0 [facility] Work Phone: [phone] Blood erythrocytes count (nu mber/volume)on 03-04-2022 RBC (Bld) [#/Vol] 4.38 10*6/uL 4.6-6.2 [facility] Work Phone: Blood hemoglobin measurement (mass/volume)on 03-04-2022 Hemoglobin (Bld) [Mass/Vol] 13.3 g/dL 13.0-16.5 [facility] Work Phone: [phone] Blood lymphocytes/100 leukoc yteson 03-04-2022 Lymphocytes/100 WBC (Bld) 45.2 % 19-41 [facility] Work Phone: Blood monocytes/100 leukocyt eson 03-04-2022 Monocytes/100 WBC (Bld) 13.0 % 0-10 [facility] Work Phone: Blood platelet mean volumeon 03-04-2022 Platelet mean volume (Bld) [Entitic vol] 9.9 fL 6.2-12.0 [facility] Work Phone: Determination of erythrocyte mean corpuscular volume (MCV)on 03-04-2022 MCV (RBC) [Entitic vol] 92.0 fL 80-94 [facility] Work Phone: Hematocrit Auto (Bld) [Volum e fraction]on 03-04-2022 Hematocrit (Bld) [Volume fraction] 40.3 % 40-54 [facility] Work Phone: Laboratory - Chemistry and C hemistry - challengeon 03-04-2022 ALP [Catalytic activity/Vol] 96 U/L 45-117 [facility] Work Phone: ALT [Catalytic activity/Vol] 18 U/L 16-61 [facility] Work Phone: CO2 [Moles/Vol] 28.0 mmol/L 21.0-32.0 [facility] Work Phone: Globulin (S) [Mass/Vol] 3.9 g/dL 2.2-4.2 [facility] Work Phone: Urea nitrogen/Creatinine [Mass ratio] 7.9 mg/mg 10-20 [facility] Work Phone: Laboratory - Hematology and Cell countson 03-04-2022 Erythrocyte distribution width (RBC) [Entitic vol] 42.7 fL 35.1-43.9 [facility] Work Phone: Erythrocyte distribution width (RBC) [Ratio] 12.8 % 11.6-14.6 [facility] Work Phone: [phone] Immature granulocytes/100 WBC (Bld) 0.200 % 0.0-0.9 [facility] Work Phone: Comment on above: IG% - Immature Granu locytes (promyelocytes, myelocytes and metamyelocytes) > 1% indicates that a LEFT SHIFT is Present. MCH (RBC) [Entitic mass] 30.4 pg 27.0-32.0 [facility] Work Phone: Nucleated RBC/100 WBC (Bld) [Ratio] 0 % 0-5 [facility] Work Phone: MCHC Auto (RBC) [Mass/Vol]on 03-04-2022 MCHC (RBC) [Mass/Vol] 33.0 g/dL 32-36 [facility] Work Phone: No Panel Informationon 03-04 Estimated GFR (MDRD) Amer 57 mL/min >60 [facility] Work Phone: Comment on above: GFR Calc Estimated GFR (MDRD) Non-Af Amer 47 mL/min >60 [facility] Work Phone: Comment on above: Non- GFR Calc Thyroid Stimulating Hormone (TSH) 2.06 uIU/mL 0.358-3.74 [facility] Work Phone: Vitamin D 25-Hydroxy 23.2 ng/mL [facility] Work Phone: Comment on above: Vitamin D 25(OH) Sta tus Range Deficiency <20 ng/mL (50nmol/L) Insufficiency 20 - 30 ng/mL (50 - 75 nmol/L) Sufficiency 30 - 100 ng/mL (75 - 250 nmol/L) Toxicity >100 ng/mL (>250 nmol/L) Platelets bldon 03-04-2022 Platelets (Bld) [#/Vol] 173 10*3/uL 150-450 [facility] Work Phone: Serum or plasma albumin donna urement (mass/volume)on 03-04-2022 Albumin [Mass/Vol] 3.4 g/dL 3.2-5.0 [facility] Work Phone: Serum or plasma albumin/glob ulin mass ratioon 03-04-2022 Albumin/Globulin [Mass ratio] 0.9 {ratio} 0.9-2.4 [facility] Work Phone: Serum or plasma calcium donna urement (mass/volume)on 03-04-2022 Calcium [Mass/Vol] 8.2 mg/dL 8.5-10.1 [facility] Work Phone: Serum or plasma creatinine m easurement (mass/volume)on 03-04-2022 Creatinine [Mass/Vol] 1.51 mg/dL 0.70-1.30 [facility] Work Phone: Comment on above: The validity of the calculated GFR & GFRAA in patients over 70 years has not been determined. Clinical correlation is essential. Serum or plasma urea nitroge n measurement (mass/volume)on 03-04-2022 Urea nitrogen [Mass/Vol] 12 mg/dL 7-18 [facility] Work Phone: Thin prep Papanicolaou smear with manual screeningon 03-04-2022 Thin prep Papanicolaou smear with manual screening 15 U/L 15-37 [facility] Work Phone: Thin prep Papanicolaou smear with manual screening 6 5-15 [facility] Work Phone: Absolute lymphocyte counton 01-08-2022 Lymphocytes Auto (Unsp spec) [#/Vol] 1.65 10*3/uL 0.83-4.51 [facility] Work Phone: Albumin Elph [Mass/Vol]on Albumin [Mass/Vol] 3.4 g/dL [facility] Work Phone: Basophil percentageon 2021 Basophils/100 WBC (Bld) 0.2 % 0-1 [facility] Work Phone: Bilirubin [Mass/Vol] 0.50 mg/dL 0.20-1.00 [facility] Work Phone: Comment on above: For patients on eltr ombopag therapy, use of Dimension [place] TBIL is not recommended. Chloride [Moles/Vol] 104 mmol/L 98-107 [facility] Work Phone: Eosinophils/100 WBC (Bld) 1.5 % 0-5 [facility] Work Phone: Glucose [Mass/Vol] 99 mg/dL 74-106 [facility] Work Phone: Neutrophils (Bld) [#/Vol] 2.4 10*3/uL 2.0-7.7 [facility] Work Phone: [phone] Neutrophils/100 WBC (Bld) 50.6 % 47-70 [facility] Work Phone: Potassium [Moles/Vol] 3.7 mmol/L 3.5-5.1 [facility] Work Phone: Protein [Mass/Vol] 7.7 g/dL 6.4-8.2 [facility] Work Phone: Sodium [Moles/Vol] 139 mmol/L 136-145 [facility] Work Phone: WBC (Bld) [#/Vol] 4.8 10*3/uL 4.4-11.0 [facility] Work Phone: Blood erythrocytes count (nu mber/volume)on 01-08-2022 RBC (Bld) [#/Vol] 4.60 10*6/uL 4.6-6.2 [facility] Work Phone: Blood hemoglobin measurement (mass/volume)on 01-08-2022 Hemoglobin (Bld) [Mass/Vol] 14.3 g/dL 13.0-16.5 [facility] Work Phone: [phone] Blood lymphocytes/100 leukoc yteson 01-08-2022 Lymphocytes/100 WBC (Bld) 34.2 % 19-41 [facility] Work Phone: [phone] Blood monocytes/100 leukocyt eson 01-08-2022 Monocytes/100 WBC (Bld) 13.3 % 0-10 [facility] Work Phone: Blood platelet mean volumeon 01-08-2022 Platelet mean volume (Bld) [Entitic vol] 10.1 fL 6.2-12.0 [facility] Work Phone: Determination of erythrocyte mean corpuscular volume (MCV)on 01-08-2022 MCV (RBC) [Entitic vol] 94.1 fL 80-94 [facility] Work Phone: Hematocrit Auto (Bld) [Volum e fraction]on 01-08-2022 Hematocrit (Bld) [Volume fraction] 43.3 % 40-54 [facility] Work Phone: Interpretation of serum or p lasma protein pattern by immunofixation (narrative resulton 01-08-2022 Protein Fractions Immunofixation [place]lin [Interp] See comment [facility] Work Phone: Comment on above: Monoclonal IgG kappa = 0.5 g/dlMonoclonal IgG lambda = 0.2 g/dlDue to the small quantity of monoclonal IgM kappa, unable toquantitate the M-spike. Iron measurement (mass/mass) on 01-08-2022 Iron (Unsp spec) [Mass/Mass] 72 ug/dL 65-175 [facility] Work Phone: Laboratory - Chemistry and C hemistry - challengeon 01-08-2022 ALP [Catalytic activity/Vol] 103 U/L 45-117 [facility] Work Phone: ALT [Catalytic activity/Vol] 18 U/L 16-61 [facility] Work Phone: CO2 [Moles/Vol] 27.0 mmol/L 21.0-32.0 [facility] Work Phone: Urea nitrogen/Creatinine [Mass ratio] 13.0 mg/mg 10-20 [facility] Work Phone: Laboratory - Hematology and Cell countson 01-08-2022 Erythrocyte distribution width (RBC) [Entitic vol] 44.8 fL 35.1-43.9 [facility] Work Phone: Erythrocyte distribution width (RBC) [Ratio] 13.2 % 11.6-14.6 [facility] Work Phone: Immature granulocytes/100 WBC (Bld) 0.200 % 0.0-0.9 [facility] Work Phone: Comment on above: IG% - Immature Granu locytes (promyelocytes, myelocytes and metamyelocytes) > 1% indicates that a LEFT SHIFT is Present. MCH (RBC) [Entitic mass] 31.1 pg 27.0-32.0 [facility] Work Phone: Nucleated RBC/100 WBC (Bld) [Ratio] 0 % 0-5 [facility] Work Phone: MCHC Auto (RBC) [Mass/Vol]on 01-08-2022 MCHC (RBC) [Mass/Vol] 33.0 g/dL 32-36 [facility] Work Phone: No Panel Informationon 01-08 Addendum Document Comment [facility] Work Phone: Comment on above: Protein electrophore sis scan will follow via computer,mail, or inspector rubber stamp die delivery.Performed at: [employer] [id number] Director: Alcides Alicea PhD, Phone: [phone] Estimated GFR (MDRD) Amer 72 mL/min >60 [facility] Comment on above: GFR Calc Estimated GFR (MDRD) Non-Af Amer 60 mL/min >60 [facility] Work Phone: Comment on above: Non- GFR Calc Total Iron Binding Capacity 294 ug/dL 250-450 [facility] Work Phone: Platelets bldon 01-08-2022 Platelets (Bld) [#/Vol] 176 10*3/uL 150-450 [facility] Work Phone: Serum mtows-[id number] measu rement by electrophoresison 01-08-2022 Alpha 1 globulin Elph [Mass/Vol] 0.2 g/dL [facility] Work Phone: Alpha 1 globulin Elph [Mass/Vol] 0.9 g/dL [facility] Work Phone: Serum globulin measurement ( mass/volume)on 01-08-2022 Globulin (S) [Mass/Vol] 3.6 g/dL [facility] Work Phone: Serum or plasma IgA measurem ent (mass/volume)on 01-08-2022 IgA [Mass/Vol] 486 mg/dL [facility] Work Phone: Serum or plasma IgG measurem ent (mass/volume)on 01-08-2022 IgG [Mass/Vol] 1393 mg/dL [facility] Work Phone: Serum or plasma IgM measurem ent (mass/volume)on 01-08-2022 IgM [Mass/Vol] 160 mg/dL [facility] Work Phone: Serum or plasma albumin donna urement (mass/volume)on 01-08-2022 Albumin [Mass/Vol] 3.3 g/dL 3.2-5.0 [facility] Work Phone: Serum or plasma albumin/glob ulin mass ratioon 01-08-2022 Albumin/Globulin [Mass ratio] 0.8 {ratio} 0.9-2.4 [facility] Work Phone: Serum or plasma beta globuli n measurement by electrophoresis (mass/volume)on 01-08-2022 Beta globulin Elph [Mass/Vol] 1.1 g/dL [facility] Work Phone: Serum or plasma calcium donna urement (mass/volume)on 01-08-2022 Calcium [Mass/Vol] 8.6 mg/dL 8.5-10.1 [facility] Work Phone: Serum or plasma creatinine m easurement (mass/volume)on 01-08-2022 Creatinine [Mass/Vol] 1.23 mg/dL 0.70-1.30 [facility] Work Phone: Comment on above: The validity of the calculated GFR & GFRAA in patients over 70 years has not been determined. Clinical correlation is essential. Serum or plasma ferritin yosef surement (mass/volume)on 01-08-2022 Ferritin [Mass/Vol] 37 ng/mL 26-388 [facility] Work Phone: Serum or plasma gamma globul in measurement by electrophoresis (mass/volume)on 01-08-2022 Gamma globulin Elph [Mass/Vol] 1.4 g/dL [facility] Work Phone: Serum or plasma immunoelectr ophoresis interpretation (nominal result)on 01-08-2022 Interpretation IEP [Interp] Comment [facility] Work Phone: Comment on above: Immunofixation shows IgG monoclonal protein with kappalight chain specificity.Please note that samples from patients receivingDARZALEX(R) (daratumumab) treatment can appear as an IgGkappa and mask a complete response. If this patient isreceiving CJ, this DAMARIS assay interference can be removedby ordering test number [id number], Daratumumab-Specific, Serum and submitting a new sample for testing orby calling the lab to add this test to the current sample.Immunofixation shows IgM monoclonal protein with kappalight chain specificity.Immunofixation shows IgG monoclonal protein with lambdalight chain specificity. Serum or plasma iron saturat ion measurement (mass fraction)on 01-08-2022 Iron saturation [Mass fraction] 24.5 % 15.0-55.0 [facility] Work Phone: Serum or plasma urea nitroge n measurement (mass/volume)on 01-08-2022 Urea nitrogen [Mass/Vol] 16 mg/dL 7-18 [facility] Work Phone: Thin prep Papanicolaou smear with manual screeningon 01-08-2022 Thin prep Papanicolaou smear with manual screening 19 U/L 15-37 [facility] Work Phone: Thin prep Papanicolaou smear with manual screening 8 5-15 [facility] Work Phone: Thin prep Papanicolaou smear with manual screening 1.0 [facility] Work Phone: Total protein bloodon 2021 Protein [Mass/Vol] 7.0 g/dL [facility] Work Phone: Basophil percentageon 2020 Basophil percentage 3.8 mg/dL 2.5-4.9 [facility]: Chloride [Moles/Vol] 103 mmol/L 98-107 [facility] Work [facility]: Glucose [Mass/Vol] 89 mg/dL 74-106 [facility] Work Phone: Comment on above: Please note revised GLUCOSE reference range effective 2017. Potassium [Moles/Vol] 3.6 mmol/L 3.5-5.1 [facility] Work Phone: Sodium [Moles/Vol] 140 mmol/L 136-145 [facility] Work Phone: Laboratory - Chemistry and C hemistry - challengeon 11-11-2021 CO2 [Moles/Vol] 30.0 mmol/L 21.0-32.0 [facility] Work Phone: Urea nitrogen/Creatinine [Mass ratio] 12.4 mg/mg 09-11 [facility] Work Phone: No Panel Informationon 11-11 Estimated GFR (MDRD) Amer 80 mL/min >60 [facility] Work Phone: Comment on above: GFR Calc Estimated GFR (MDRD) Non-Af Amer 66 mL/min >60 [facility] Work Phone: Comment on above: Non- GFR Calc Serum or plasma albumin donna urement (mass/volume)on 11-11-2021 Albumin [Mass/Vol] 3.5 g/dL 3.2-5.0 [facility] Work Phone: Serum or plasma calcium donna urement (mass/volume)on 11-11-2021 Calcium [Mass/Vol] 8.6 mg/dL 8.5-10.1 [facility] Work Phone: Serum or plasma creatinine m easurement (mass/volume)on 11-11-2021 Creatinine [Mass/Vol] 1.13 mg/dL 0.70-1.30 [facility] Work Phone: Comment on above: The validity of the calculated GFR & GFRAA in patients over 70 years has not been determined. Clinical correlation is essential. Serum or plasma urea nitroge n measurement (mass/volume)on 11-11-2021 Urea nitrogen [Mass/Vol] 14 mg/dL 7-18 [facility] Work Phone: Urine creatinine measurement (mass/volume)on 11-11-2021 Creatinine (U) [Mass/Vol] 98.20 mg/dL NO RANGE EST. [facility] Work Phone: Urine protein measurement (m ass/volume)on 11-11-2021 Protein (U) [Mass/Vol] 183.5 mg/dL 0.0-11.8 [facility] Work Phone: Urine protein/creatinine mas s ratioon 11-11-2021 Protein/Creatinine (U) [Mass ratio] 1869 mg/g CRE 0-200 [facility] Work Phone: [employer] mix RAST testo n 06-27-2021 LDH [Catalytic activity/Vol] 160 U/L 87-241 [facility] Laboratory - Chemistry and C hemistry - challengeon 06-27-2021 Cobalamin (Vitamin B12) [Mass/Vol] 802 pg/mL 211-911 [facility] Work Phone: No Panel Informationon 06-27 Free Lambda Light Chains, Quant 31.9 mg/L High 5.7-26.3 [facility] Serum immunoglobulin kappa l ight chains/immunoglobulin lambda light chains mass ratioon 06-27-2021 Immunoglobulin light chains.kappa/Immunoglobul in light chains.lambda (S) [Mass ratio] 2.82 High 0.26-1.65 [facility] Comment on above: Performed at: [address] [id number] Director: Alcides Alicea PhD, Phone: [phone] Serum or plasma immunoglobul in kappa light chains measurement (mass/volume)on 06-27-2021 Immunoglobulin light chains.kappa [Mass/Vol] 89.9 mg/L High 3.3-19.4 [facility] Thin prep Papanicolaou smear with manual screeningon 06-27-2021 Thin prep Papanicolaou smear with manual screening 160 U/L 87-241 [facility] Work Phone: CNOVon 09-19-2019 CNOV Office Visit (AGVASACC) ALYSSAELIAS ([id number]) 1940 M Date Time Provider Department 09/19/19 2:00 PM HELENA BACON (KEE) [facility] During your visit today, we recorded the following information about you: Pulse Respiration Blood pressure Weight 48/minute 16/minute 128/70 88 kg Height 1.829 m Helena Bacon APRN.CNP, CNP 09/19/2019 3:22 PM Signed HPI: Elias Shah is a 79 year old male that returns to the office today for 2 month post-discharge follow up for aortic stenosis and coronary artery disease s/p combined CABG ?2 ([place] to LAD, SVG to ramus) and aortic valve replacement with #[address] Cristhian trifecta pericardial prosthesis, and exclusion of the left atrial appendage with a #35 mm AtriCure clip performed on 07/04/[address] Rivers. His post-operative course was complicated by acute on chronic kidney disease, atrial fibrillation with RVR (present prior to surgery) Chronic Anemia, Hematuria, Acute Encephalopathy, He Was Discharged on 07/13/2019 to [facility]. He Continued to Have Ongoing Problems with Bradycardia, Tachycardia, Atrial Fibrillation. On July 27 He Was Diagnosed with Pneumonia and Treated with IV Vancomycin and Cefepime. Additionally, in follow-up he had melena with acute blood loss anemia and was readmitted to [facility]. He was discharged on August 26, 2019 To [facility] facility. Was finally discharged back home last week. He has already followed up with his PCP. Today, Elias Shah, reports he is doing better day by day. He is walking quite a bit, using a walker. Improvement of a prior visit when he was using a wheelchair exclusively. Pain: Denies any significant pain, reports chest pain with sneeze. CV: (Dizzy, palpitations, BP, Edema) blood pressure at home log is significantly elevated, does not correlate with blood pressure here, and in prior notes from other providers. He does report significant fatigue. SOB/BARDALES: Denies shortness of breath Fever: No fevers Diet: Improving appetite Bowel: Normal bowels Activity: Asking to begin cardiac rehabilitation C/O: Multiple questions about medications Cardiology F/U: Scheduled to see Dr. Ann in October, with like to move it up so he could begin cardiac rehabilitation Cardiac Rehab: Would like to begin cardiac rehabilitation as soon as possible Subjective: Current Outpatient Medications: ferrous sulfate 325 mg (65 mg iron) tablet Take 1 tablet by mouth once daily. losartan (COZAAR) 50 mg tablet Take 50 mg by mouth twice daily. ascorbic acid, vitamin C, (VITAMIN C) 500 mg tablet Take 500 mg by mouth once daily. metoprolol tartrate, short acting, (LOPRESSOR) 25 mg tablet Take 2 tablets by mouth twice daily. (Patient taking differently: Take 25 mg by mouth twice daily. ) guaifen/dextromethorp coronado/pe (GUAIFEN DM ORAL) Take 10 mL by mouth every 6 hours as needed (cough). atorvastatin (LIPITOR) 40 mg tablet Take 1 tablet by mouth daily at bedtime. tamsulosin ER (FLOMAX) 0.4 mg cap Take 0.4 mg by mouth once daily. hydrALAZINE (APRESOLINE) 25 mg tablet Take 1 tablet by mouth every 6 hours. (Patient not taking: Reported on 09/19/2019 ) pantoprazole DR (PROTONIX) 40 mg tablet Take 1 tablet by mouth DAILY (6 AM). (Patient not taking: Reported on 09/19/2019 ) hydrocortisone 2.5 % cream Apply (Patient not taking: Reported on 09/19/2019 ) clotrimazole (CLOTRIMAZOLE AF) 1 % cream Apply on the face/ rash 2 times/ day for 5 days. (Patient not taking: Reported on 09/19/2019 ) acetaminophen (TYLENOL) 325 mg tablet Take 2 tablets by mouth every 4 hours as needed. (Patient not taking: Reported on 09/19/2019 ) aspirin 81 mg chewable tablet Take 2 tablets by mouth once daily. (Patient not taking: Reported on 09/19/2019 ) polyethylene glycol 3350 (MIRALAX, GLYCOLAX) 17 gram packet Take 1 Packet by mouth once daily as needed. (Patient not taking: Reported on 09/19/2019 ) No current facility-administered medications for this visit. Patient has no known allergies. PAST MEDICAL HISTORY Diagnosis Date - Acute kidney injury (HCC) - Acute metabolic encephalopathy - Anemia - Aortic stenosis - Atrial fibrillation (HCC) - Bowel obstruction (HCC) - Coronary artery disease - Hyperlipidemia - Hypertension - Left bundle branch block - Mitral valve annular calcification - Prolonged QT interval - S/P AVR 07/04/[address] Cristhian Trifecta pericardial prosthesis at [facility] by Dr. 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 Rivers - Vitamin D deficiency PAST SURGICAL HISTORY Procedure Laterality Date - ATRIAL APPENDAGE LIGATION 07/04/2019 35 mm AtriCure clip at [facility] by Dr. Rivers - CABG (2) VEIN GRAFTS AND ARTERIAL GRAFT(S 07/04/2019 at [facility] by Dr. Rivers - REPAIR UMBILICAL HERNIA 12/04/2018 after bowel perforation done at [facility] Dr. Young - REPLAC AORT VALV PROSTH VALV 07/04/[address] Cristhian Trifecta pericardial prosthesis at [facility] by Dr. Rivers FAMILY HISTORY Problem Relation Age of Onset - Osteoporosis Mother - Heart Mother - Cancer Father lung - Colon Cancer No Family History Social History Tobacco Use - Smoking status: Former Smoker Packs/day: 1.00 Years: 5.00 Pack years: 5.00 Last attempt to quit: 11/23/1954 Years since quittin.8 - Smokeless tobacco: Never Used Substance Use Topics - Alcohol use: Not Currently Comment: social - Drug use: Never Review of Systems Constitutional: Negative for chills, fever and malaise/fatigue. Weight loss: Weight has been stable. HENT: Negative for sore throat. Respiratory: Negative for cough, sputum production, shortness of breath and wheezing. Cardiovascular: Positive for leg swelling (. 1-2+ pitting edema left lower extremity). Negative for chest pain, palpitations, orthopnea, claudication and PND. Gastrointestinal: Negative for abdominal pain, blood in stool, constipation, diarrhea, melena, nausea and vomiting. Genitourinary: Negative for dysuria. Musculoskeletal: Negative for falls and joint pain. Skin: No new lesions Neurological: Negative for dizziness, tingling, sensory change, focal weakness, weakness and headaches. Endo/Heme/Allergies: Does not bruise/bleed easily. Psychiatric/Behaviora l: Negative for depression. The patient does not have insomnia. Objective: One month post- op Chest X-ray is done and reviewed today. Chest x-ray done previously. Physical Examination: Vitals:BP 128/70 Pulse 48 Resp 16 Ht 6' 0 (1.83m) Wt 194 lb (88.0kg) SpO2 98% BMI 26.31 kg/(m2). BP w/Orthostatic Vitals Date and Time Orthostatic BP Orthostatic Pulse BP Pulse BP Position BP Site BP Cuff Size 09/19/19 1416 -- -- 128/70 48 Sitting Left Arm -- Peak Flow Date and Time PF Resp 09/19/19 1416 -- 16 Last 2 Encounter Wt Readings: Date: Wt: 09/19/2019 194 lb (88 kg) 08/20/2019 194 lb 0.1 oz (88 kg) Physical Exam Constitutional: He is oriented to person, place, and time and well-developed, well-nourished, and in no distress. HENT: Head: Normocephalic. Eyes: Pupils are equal, round, and reactive to light. Cardiovascular: Normal rate, regular rhythm, S1 normal, S2 normal and intact distal pulses. No murmur heard. Pulmonary/Chest: Effort normal and breath sounds normal. Abdominal: Soft. Normal appearance and bowel sounds are normal. Musculoskeletal: He exhibits edema (.1+ pitting edema LLE). Neurological: He is alert and oriented to person, place, and time. Gait normal. Walking with walker, which is where he was preop Skin: Skin is warm and intact. Midsternal incision clean dry, well approximated, no redness or drainage Sternum is stable Ct Sites healed SVG site clean dry, no redness, drainage, or hematoma Psychiatric: Mood and affect normal. Assessment and Plan: ASSESSMENT/PLAN: 1. S/P CABG x 2 - ICD9: V45.81, ICD10: Z95.1 (primary diagnosis) -Continue medical therapy with metoprolol 50 mg twice a day, atorvastatin 40 mg daily - Aspirin was DC'd by PCP for GI bleed should resume once bleeding risk is lower - From cardiac surgery standpoint May begin cardiac rehabilitation when ready -Discussed with patient that he should follow-up with Dr. Ann prior to starting cardiac rehabilitation -All questions and concerns regarding medication should be handled by Dr. Ann 2. S/P AVR (aortic valve replacement) - ICD9: V43.3, ICD10: Z95.2 -As above 3. Paroxysmal atrial fibrillation (HCC) - ICD9: 427.31, ICD10: I48.0 - RRR in office today, if somewhat slow - Continue metoprolol 50 mg twice a day until advised to change by Dr. Primo Bacon APRN.CNP In summary, Patient is doing quite well overall after his combined CABG aVR surgery, with no major complaints. Patient is released to drive, work. Patient should start cardiac rehab from this point on. he should follow up with his airport operations coordinator and PCP as scheduled, and only needs to be seen here on a as needed basis. Thanks. Electronically signed by Helena Bacon APRN.CNP on September 19, 2019, 2:33 PM Helena Bacon APRN.CNP, CNP 09/19/2019 3:04 PM Addendum - You may drive! - Please begin cardiac rehab. If they have not contacted you, please call them: Please see Dr Ann for clearance to begin cardiac rehab [facility] Cardiac Rehabilitation Hours: Thursday, Thursday, Thursday: 8:00 am to 4:30 pm Thursday and : 6:00 am to 2:00 pm The cardiac rehabilitation department is located on the first floor of the hospital, near the [facility]. For more information, call . - Weight bearing restriction remains: No lifting more than 10 lbs. You may begin to gradually increase the amount of weight bearing. Cardiac rehab will help with this. - Please see your airport operations coordinator regularly. They will take over medication management. - Please feel free to call us if you have any post-operative concerns. Thank you for coming to see me today!! Helena Mouck, DAMAGE ADJUSTER.TENNIS COACH Referring Provider: SELF [[id number]] Allergies As of Date: 09/19/2019 (No Known Allergies) Date Reviewed: 09/19/2019 Reviewed by: Micaela Kelly LPN - Fully Assessed Reason for Visit: Post Op [174] Cmt: CABG AND AVR Primary Visit Diagnosis:S/P CABG x 2 [Z95.1] Other Visit Diagnoses:S/P AVR (aortic valve replacement) [Z95.2] Paroxysmal atrial fibrillation (HCC) [I48.0] Order(s):metoprolol tartrate, short acting, (LOPRESSOR) 50 mg tabletTake 1 tablet by mouth twice daily.Disp: Rfl: Prescriptions as of 09/19/2019 Sig: METOPROLOL TARTRATE 50 MG TAB* Take 1 tablet by mouth twice * FERROUS SULFATE 325 MG (65 MG* Take 1 tablet by mouth once d* LOSARTAN 50 MG TABLET Take 50 mg by mouth twice basilio* ASCORBIC ACID (VITAMIN C) 500* Take 500 mg by mouth once basilio* GUAIFEN DM ORAL Take 10 mL by mouth every 6 h* ATORVASTATIN 40 MG TABLET Take 1 tablet by mouth daily * TAMSULOSIN 0.4 MG CAPSULE Take 0.4 mg by mouth once basilio* HYDRALAZINE 25 MG TABLET Take 1 tablet by mouth every * Patient not taking: Reported on 09/19/2019 HYDROCORTISONE 2.5 % TOPICAL * Apply Patient not taking: Reported on 09/19/2019 CLOTRIMAZOLE 1 % TOPICAL CREAM Apply on the face/ rash 2 ridge* Patient not taking: Reported on 09/19/2019 ACETAMINOPHEN 325 MG TABLET Take 2 tablets by mouth every* Patient not taking: Reported on 09/19/2019 ASPIRIN 81 MG CHEWABLE TABLET Take 2 tablets by mouth once * Patient not taking: Reported on 09/19/2019 Problem List As Of Date 09/19/2019 Noted Resolved Abnormal electrocardiogram (ECG) (EKG) [R94.31] INVALID FOR* Anemia, unspecified [D64.9] INVALID FOR* Aortic valve stenosis [I35.0] INVALID FOR* Atrial fibrillation with rapid ventricular resp*INVALID FOR* MAURO (acute kidney injury) (HCC) [N17.9] INVALID FOR* Acute metabolic encephalopathy [G93.41] INVALID FOR* Vitamin D deficiency [E55.9] INVALID FOR* Small bowel obstruction (HCC) [K56.609] INVALID FOR* Paroxysmal atrial fibrillation (HCC) [I48.0] INVALID FOR* LBBB (left bundle branch block) [I44.7] INVALID FOR* Incarcerated umbilical hernia [K42.0] INVALID FOR* Declining functional status [R53.81] INVALID FOR* Essential hypertension [I10] INVALID FOR*08/26/2019 Hyperlipidemia [E78.5] INVALID FOR*08/26/2019 Impaired cognition [R41.89] INVALID FOR* Aortic stenosis [I35.0] INVALID FOR* Malnutrition of moderate degree (HCC) [E44.0] INVALID FOR*08/22/2019 S/P AVR (aortic valve replacement) [Z95.2] INVALID FOR*08/22/2019 S/P CABG x 2 [Z95.1] INVALID FOR* Acute encephalopathy [G93.40] INVALID FOR* Coronary artery disease of [place] artery of betty*INVALID FOR* S/P AVR [Z95.2] INVALID FOR*08/26/2019 More... Left bundle branch block [I44.7] 08/26/2019 Hypertension [I10] 08/26/2019 Coronary artery disease [I25.10] 08/26/2019 Atrial fibrillation (HCC) [I48.91] 08/26/2019 Anemia [D64.9] 08/26/2019 Chest pain [R07.9] INVALID FOR*08/26/2019 Shortness of breath [R06.02] INVALID FOR*08/26/2019 GI bleed [K92.2] INVALID FOR* Other instructions from your clinician: - You may drive! - Please begin cardiac rehab. If they have not contacted you, please call them: Please see Dr Ann for clearance to begin cardiac rehab [facility] Hours: Thursday, Thursday, Thursday: 8:00 am to 4:30 pm Thursday and : 6:00 am to 2:00 pm The cardiac rehabilitation department is located on the first floor of the hospital, near the [facility]. For more information, call . - Weight bearing restriction remains: No lifting more than 10 lbs. You may begin to gradually increase the amount of weight bearing. Cardiac rehab will help with this. - Please see your airport operations coordinator regularly. They will take over medication management. - Please feel free to call us if you have any post-operative concerns. Thank you for coming to see me today!! Helena Bacon APRN.KEE Prescriptions ordered this encounter Disp Refills Start End METOPROLOL TARTRATE 50 MG TABLET 09/19/2019 Class: Med Update Route: ORAL Sig: Take 1 tablet by mouth twice daily. Medications Discontinued During This Encounter polyethylene glycol 3350 (MIRALAX, G* 07/13/2019 09/19/2019 Class: Med Update Route: ORAL Sig: Take 1 Packet by mouth once daily as needed. Patient not taking: Reported on 09/19/2019 Disc: Reason for discontinue is not on file. pantoprazole DR (PROTONIX) 40 mg tab* 08/27/2019 09/19/2019 Class: Med Update Route: ORAL Sig: Take 1 tablet by mouth DAILY (6 AM). Patient not taking: Reported on 09/19/2019 Disc: Reason for discontinue is not on file. metoprolol tartrate, short acting, (* 60 t* 5 08/12/2019 09/19/2019 Route: ORAL Sig: Take 2 tablets by mouth twice daily. Patient taking differently: Take 25 mg by mouth twice daily. Disc: Reason for discontinue is not on file. Encounter Status:Closed by HELENA BACON CNP on 09/19/19 [facility] PROGRESSon 09-19-2019 PROGRESS HNO ID: [id number] Author: Helena Medina) KEE Bacon Service: ? Author Type: Nurse Practitioner Type: Progress Notes Filed: 09/19/2019 3:22 PM Note Text: HPI: Elias Shah is a 79 year old male that returns to the office today for 2 month post-discharge follow up for aortic stenosis and coronary artery disease s/p combined CABG ?2 ([place] to LAD, SVG to ramus) and aortic valve replacement with #[address] Cristhian trifecta pericardial prosthesis, and exclusion of the left atrial appendage with a #35 mm AtriCure clip performed on 07/04/[address] Rivers. His post-operative course was complicated by acute on chronic kidney disease, atrial fibrillation with RVR (present prior to surgery) Chronic Anemia, Hematuria, Acute Encephalopathy, He Was Discharged on 07/13/2019 to [facility]. He Continued to Have Ongoing Problems with Bradycardia, Tachycardia, Atrial Fibrillation. On July 27 He Was Diagnosed with Pneumonia and Treated with IV Vancomycin and Cefepime. Additionally, in follow-up he had melena with acute blood loss anemia and was readmitted to [facility]. He was discharged on August 26, 2019 To [facility] facility. Was finally discharged back home last week. He has already followed up with his PCP. Today, Elias Shah, reports he is doing better day by day. He is walking quite a bit, using a walker. Improvement of a prior visit when he was using a wheelchair exclusively. Pain: Denies any significant pain, reports chest pain with sneeze. CV: (Dizzy, palpitations, BP, Edema) blood pressure at home log is significantly elevated, does not correlate with blood pressure here, and in prior notes from other providers. He does report significant fatigue. SOB/BARDALES: Denies shortness of breath Fever: No fevers Diet: Improving appetite Bowel: Normal bowels Activity: Asking to begin cardiac rehabilitation C/O: Multiple questions about medications Cardiology F/U: Scheduled to see Dr. Ann in October, with like to move it up so he could begin cardiac rehabilitation Cardiac Rehab: Would like to begin cardiac rehabilitation as soon as possible Subjective: Current Outpatient Medications: ferrous sulfate 325 mg (65 mg iron) tablet Take 1 tablet by mouth once daily. losartan (COZAAR) 50 mg tablet Take 50 mg by mouth twice daily. ascorbic acid, vitamin C, (VITAMIN C) 500 mg tablet Take 500 mg by mouth once daily. metoprolol tartrate, short acting, (LOPRESSOR) 25 mg tablet Take 2 tablets by mouth twice daily. (Patient taking differently: Take 25 mg by mouth twice daily. ) guaifen/dextromethorp coronado/pe (GUAIFEN DM ORAL) Take 10 mL by mouth every 6 hours as needed (cough). atorvastatin (LIPITOR) 40 mg tablet Take 1 tablet by mouth daily at bedtime. tamsulosin ER (FLOMAX) 0.4 mg cap Take 0.4 mg by mouth once daily. hydrALAZINE (APRESOLINE) 25 mg tablet Take 1 tablet by mouth every 6 hours. (Patient not taking: Reported on 09/19/2019 ) pantoprazole DR (PROTONIX) 40 mg tablet Take 1 tablet by mouth DAILY (6 AM). (Patient not taking: Reported on 09/19/2019 ) hydrocortisone 2.5 % cream Apply (Patient not taking: Reported on 09/19/2019 ) clotrimazole (CLOTRIMAZOLE AF) 1 % cream Apply on the face/ rash 2 times/ day for 5 days. (Patient not taking: Reported on 09/19/2019 ) acetaminophen (TYLENOL) 325 mg tablet Take 2 tablets by mouth every 4 hours as needed. (Patient not taking: Reported on 09/19/2019 ) aspirin 81 mg chewable tablet Take 2 tablets by mouth once daily. (Patient not taking: Reported on 09/19/2019 ) polyethylene glycol 3350 (MIRALAX, GLYCOLAX) 17 gram packet Take 1 Packet by mouth once daily as needed. (Patient not taking: Reported on 09/19/2019 ) No current facility-administered medications for this visit. Patient has no known allergies. PAST MEDICAL HISTORY Diagnosis Date - Acute kidney injury (HCC) - Acute metabolic encephalopathy - Anemia - Aortic stenosis - Atrial fibrillation (HCC) - Bowel obstruction (HCC) - Coronary artery disease - Hyperlipidemia - Hypertension - Left bundle branch block - Mitral valve annular calcification - Prolonged QT interval - S/P AVR 07/04/[address] Cristhian Trifecta pericardial prosthesis at [facility] by Dr. 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 Rivers - Vitamin D deficiency PAST SURGICAL HISTORY Procedure Laterality Date - ATRIAL APPENDAGE LIGATION 07/04/2019 35 mm AtriCure clip at [facility] by Dr. Rivers - CABG (2) VEIN GRAFTS AND ARTERIAL GRAFT(S 07/04/2019 at [facility] by Dr. Rivers - REPAIR UMBILICAL HERNIA 12/04/2018 after bowel perforation done at [facility] Dr. Young - REPLAC AORT VALV PROSTH VALV 07/04/[address] Cristhian Trifecta pericardial prosthesis at [facility] by Dr. Rivers FAMILY HISTORY Problem Relation Age of Onset - Osteoporosis Mother - Heart Mother - Cancer Father lung - Colon Cancer No Family History Social History Tobacco Use - Smoking status: Former Smoker Packs/day: 1.00 Years: 5.00 Pack years: 5.00 Last attempt to quit: 11/23/1954 Years since quittin.8 - Smokeless tobacco: Never Used Substance Use Topics - Alcohol use: Not Currently Comment: social - Drug use: Never Review of Systems Constitutional: Negative for chills, fever and malaise/fatigue. Weight loss: Weight has been stable. HENT: Negative for sore throat. Respiratory: Negative for cough, sputum production, shortness of breath and wheezing. Cardiovascular: Positive for leg swelling (. 1-2+ pitting edema left lower extremity). Negative for chest pain, palpitations, orthopnea, claudication and PND. Gastrointestinal: Negative for abdominal pain, blood in stool, constipation, diarrhea, melena, nausea and vomiting. Genitourinary: Negative for dysuria. Musculoskeletal: Negative for falls and joint pain. Skin: No new lesions Neurological: Negative for dizziness, tingling, sensory change, focal weakness, weakness and headaches. Endo/Heme/Allergies: Does not bruise/bleed easily. Psychiatric/Behaviora l: Negative for depression. The patient does not have insomnia. Objective: One month post- op Chest X-ray is done and reviewed today. Chest x-ray done previously. Physical Examination: Vitals:BP 128/70 Pulse 48 Resp 16 Ht 6' 0 (1.83m) Wt 194 lb (88.0kg) SpO2 98% BMI 26.31 kg/(m2). BP w/Orthostatic Vitals Date and Time Orthostatic BP Orthostatic Pulse BP Pulse BP Position BP Site BP Cuff Size 09/19/19 1416 -- -- 128/70 48 Sitting Left Arm -- Peak Flow Date and Time PF Resp 09/19/19 1416 -- 16 Last 2 Encounter Wt Readings: Date: Wt: 09/19/2019 194 lb (88 kg) 08/20/2019 194 lb 0.1 oz (88 kg) Physical Exam Constitutional: He is oriented to person, place, and time and well-developed, well-nourished, and in no distress. HENT: Head: Normocephalic. Eyes: Pupils are equal, round, and reactive to light. Cardiovascular: Normal rate, regular rhythm, S1 normal, S2 normal and intact distal pulses. No murmur heard. Pulmonary/Chest: Effort normal and breath sounds normal. Abdominal: Soft. Normal appearance and bowel sounds are normal. Musculoskeletal: He exhibits edema (.1+ pitting edema LLE). Neurological: He is alert and oriented to person, place, and time. Gait normal. Walking with walker, which is where he was preop Skin: Skin is warm and intact. Midsternal incision clean dry, well approximated, no redness or drainage Sternum is stable Ct Sites healed SVG site clean dry, no redness, drainage, or hematoma Psychiatric: Mood and affect normal. Assessment and Plan: ASSESSMENT/PLAN: 1. S/P CABG x 2 - ICD9: V45.81, ICD10: Z95.1 (primary diagnosis) -Continue medical therapy with metoprolol 50 mg twice a day, atorvastatin 40 mg daily - Aspirin was DC'd by PCP for GI bleed should resume once bleeding risk is lower - From cardiac surgery standpoint May begin cardiac rehabilitation when ready -Discussed with patient that he should follow-up with Dr. Ann prior to starting cardiac rehabilitation -All questions and concerns regarding medication should be handled by Dr. Ann 2. S/P AVR (aortic valve replacement) - ICD9: V43.3, ICD10: Z95.2 -As above 3. Paroxysmal atrial fibrillation (HCC) - ICD9: 427.31, ICD10: I48.0 - RRR in office today, if somewhat slow - Continue metoprolol 50 mg twice a day until advised to change by Dr. Primo Bacon APRN.CNP In summary, Patient is doing quite well overall after his combined CABG aVR surgery, with no major complaints. Patient is released to drive, work. Patient should start cardiac rehab from this point on. he should follow up with his airport operations coordinator and PCP as scheduled, and only needs to be seen here on a as needed basis. Thanks. Electronically signed by Helena Bacon APRN.CNP on September 19, 2019, 2:33 PM [facility] CASE MANAGEMon 08-26-2019 CASE MANAGEM HNO ID: [id number] Author: Serene Amaya Service: Care Management Author Type: ? Type: Care Mgt Progress Note Filed: 08/29/2019 4:04 PM Note Text: CARE MANAGEMENT PROGRESS NOTE SERVICE DATE: 08/29/2019 SERVICE TIME: 1200 LOS: 6 days IM letter given to patient on 08/26/2019. SIGNATURE: Janee Amaya PATIENT NAME: Elias Shah DATE: August 29, 2019 TIME: 12:17 PM PAGER/CONTACT #: [phone] [facility] CASE MANAGEM HNO ID: [id number] Author: Barbara GusmanRnSachin Roque RN Service: Care Management Author Type: Registered Nurse Type: Care Mgt Progress Note Filed: 08/26/2019 3:07 PM Note Text: CARE MANAGEMENT DISCHARGE NOTE SERVICE DATE: 08/26/2019 SERVICE TIME: 3:05 PM LOS: 6 days Admission Date: 08/20/2019 DISCHARGE ARRANGEMENT (list agency and phone number) prison facility: Was an expedited discharge program used? No Provider: Darvin Steen CAREGIVER ASSESSMENT: Caregiver is ready, willing and able to meet the patient's needs as recommended by the inter-professional team? No Patient's transition needs and plan for meeting these needs: SNF Does the patient have an acute stroke diagnosis, or has the patient had a stroke during this admission? No HANDOFF COMMUNICATION: . TRANSPORTATION ARRANGEMENTS: Mode of Transportation: [employer] Agency and Phone #: [facility] ( [facility] ) [phone] / [phone]. Date of Trip: 08/26/2019 Type of Service: Wheelchair Is Patient Medicaid Pending: No Discussion of financial coverage occurred with Patient and Family . Clinical Quality Manager Location: [address] [place] [address] Destination: SNF Financial Care Management Responsibility: None Estimated Charge: na Approving Underwater Trapper: lucia ADDITIONAL CONTACT RESOURCES: . Pt is D/C to SNF today. W/C transport at 4:30 PM, Patient and RN aware. TCVM to Helena mccormack. SIGNATURE: Barbara Roque RN PATIENT NAME: Elias Shah DATE: August 26, 2019 TIME: 3:05 PM PAGER/CONTACT #: [phone] [facility] NURSING PROGon 08-26-2019 NURSING PROG HNO ID: [id number] Author: Yenifer GusmanRn) AGUSTO Tamayo Service: ? Author Type: Registered Nurse Type: Nursing Progress Note Filed: 08/26/2019 4:15 PM Note Text: Report called to Emiliano at [facility] at [phone]. [facility] NURSING PROG HNO ID: [id number] Author: Yenifer GusmanRn) AGUSTO Tamayo Service: ? Author Type: Registered Nurse Type: Nursing Progress Note Filed: 08/26/2019 9:04 AM Note Text: Dr Peñaloza notified of pt's blood pressure and heart rate, potassium level. Ordered to hold Metoprolol and he will order Hydralazine. also notified of pt's c/o nausea and headache. PRN Zofran given. [facility] NURSING PROG HNO ID: [id number] Author: Rica (Rn) AGUSTO Garcia Service: ? Author Type: Registered Nurse Type: Nursing Progress Note Filed: 08/26/2019 5:53 AM Note Text: Nursing Progress Note Patient Name: Elias Shah Patient Location: [place] [address] [address]- [facility]- Daily Note: 0525: Paged sound at #[phone] regarding pt BP of 169/70 and HR 54, pt asymptomatic. 0546: Talked to Dr. Keane, orders to give Losartan early. This note was completed by: Rica Garcia RN [facility] PLAN OF CAREon 08-26-2019 PLAN OF CARE HNO ID: [id number] Author: Landen Izquierdo (Pharmacist) Service: Pharmacy Author Type: Pharmacist Type: Plan of Care Filed: 08/26/2019 3:28 PM Note Text: DISCHARGE MEDICATION REVIEW BY PHARMACY Patient Name: Elias Shah Account #: Data Unavailable Admission Date: 08/20/2019 Date of Contact: August 26, 2019 Time of Contact: 3:27 PM Medication list was reviewed by a Pharmacist for drug interactions or drug related problems:Yes Below is a summary of pharmacist recommendations discussed with LIP: No Recommendations at this time from Discharge Medication List. Patient discharged today to [facility] August 26, 2019 3:27 PM Pager: 08/26/2019 3:27 PM Medication List START taking these medications doxycycline hyclate 100 mg capsule Commonly known as: VIBRAMYCIN Take 1 capsule by mouth twice daily for 3 days. ferrous sulfate 325 mg (65 mg iron) tablet Take 1 tablet by mouth once daily. Start taking on: 08/27/2019 hydrALAZINE 25 mg tablet Commonly known as: APRESOLINE Take 1 tablet by mouth every 6 hours. HYDROcodone-acetamino phen 5-325 mg per tablet Commonly known as: NORCO Take 1 tablet by mouth every 12 hours as needed for Pain for up to [address] 40 mg tablet Commonly known as: PROTONIX Take 1 tablet by mouth DAILY (6 AM). Start taking on: 08/27/2019 CHANGE how you take these medications metoprolol tartrate (short acting) 25 mg tablet Commonly known as: LOPRESSOR Take 2 tablets by mouth twice daily. What changed: how much to take CONTINUE taking these medications acetaminophen 325 mg tablet Commonly known as: TYLENOL Take 2 tablets by mouth every 4 hours as needed. aspirin 81 mg chewable tablet Take 2 tablets by mouth once daily. atorvastatin 40 mg tablet Commonly known as: LIPITOR Take 1 tablet by mouth daily at bedtime. FLOMAX 0.4 mg Cap Generic drug: tamsulosin ER GUAIFEN DM ORAL losartan 50 mg tablet Commonly known as: COZAAR polyethylene glycol 3350 17 gram packet Commonly known as: MIRALAX, GLYCOLAX Take 1 Packet by mouth once daily as needed. VITAMIN C 500 mg tablet Generic drug: ascorbic acid (vitamin C) STOP taking these medications Ferrous Fumarate-Iron Ps Cmplx 162-115.2 (106) mg Cap furosemide 20 mg tablet Commonly known as: LASIX oxyCODONE ir 5 mg capsule Commonly known as: OXYIR Where to Get Your Medications You can get these medications from any pharmacy Bring a paper prescription for each of these medications ? HYDROcodone-acetamino phen 5-325 mg per tablet Normal [facility] PROGRESSon 08-26-2019 PROGRESS HNO ID: [id number] Author: Janee Mccauley Service: General Surgery Author Type: Nurse Specialist Type: Progress Notes Filed: 08/26/2019 9:09 AM Note Text: Emergency General Surgery Progress Note SERVICE DATE: 08/26/2019 SERVICE TIME: 0700 SUBJECTIVE: No acute events overnight. States slept fair, Reports pain right upper chest at IANDD site, gets relief with pain meds Tolerating diet DIET REGULAR Nausea No Emesis No Flatus Yes Bowel movement No Pain Controlled Yes Ambulating Yes OBJECTIVE: Vitals: Temp (24hrs), Av.8 ?C (98.2 ?F), Min:36.6 ?C (97.9 ?F), Max:36.9 ?C (98.4 ?F) BP 169/70 Pulse (!) 54 Temp 36.6 ?C (97.9 ?F) (Oral) Resp 18 Ht 182.9 cm (6') Wt 91.5 kg (201 lb 11.5 oz) SpO2 98% BMI 27.36 kg/m? O2 Therapy: Room Air IANDO: Date 08/25/19699 - 08/26/1965808/26/19699 - 08/27/19658 Shift 8872-6822 6829-1299 3315-5527 24 Hour Total 8021-8352 7207-9311 2885-4587 24 Hour Total INTAKE PO 1080 178 019 9295 PO 1080 864 981 1880 Shift Total 1080 408 669 7388 OUTPUT Urine 100 100 Void (ml) 100 100 Urine Incontinence/Not Saved 3 x 3 x Urine Not Saved. 1 x 2 x 1 x 4 x Shift Total 100 100 Weight (kg) 91.5 91.5 91.5 91.5 91.5 91.5 91.5 91.5 MEDICATIONS Current Facility-Administered Medications Medication Dose Route Frequency - pantoprazole DR 40 mg tab(s) (PROTONIX) 40 mg ORAL DAILY (6 AM) - ondansetron (PF) 4 mg injection (ZOFRAN) 4 mg INTRAVENOUS PRN - ferrous sulfate 325 mg tab(s) 325 mg ORAL DAILY - aspirin 81 mg chewable tab(s) 81 mg ORAL DAILY - HYDROcodone 5 mg - acetaminophen 325 mg tablet (NORCO) 1 tablet ORAL q 4 H PRN - acetaminophen 650 mg tab(s) (TYLENOL) 650 mg ORAL q 4 H PRN - atorvastatin 40 mg tab(s) (LIPITOR) 40 mg ORAL AT BEDTIME - losartan 50 mg tab(s) (COZAAR) 50 mg ORAL BID - metoprolol tartrate (short acting) 25 mg tab(s) (LOPRESSOR) 25 mg ORAL BID - tamsulosin ER 0.4 mg cap(s) (FLOMAX) 0.4 mg ORAL DAILY - NaCl 0.9% 3-5 mL 3-5 mL INTRAVENOUS q 12 H - NaCl 0.9% 2-10 mL 2-10 mL INTRAVENOUS q 12 H Labs: Recent Labs 08/26/19518 08/25/19 0742 08/25/19 0245 NA 142 -- 141 K 3.3* -- 3.4* CHLOR 108* -- 108* CO2 27 -- 27 BUN 11 -- 12 CREAT 1.21* -- 1.28* GLUC 89 -- 96 ANION 10 -- 9 CA 7.7* -- 8.0* ALB 2.4* -- 2.6* AST 13* -- 15 ALT 8* -- 11* ALKPHOS 81 -- 87 TBILI 0.2 -- 0.3 WBC 4.58 4.10* -- HB 7.0* 7.1* -- HCT 22.8* 22.9* -- PLT 186 179 -- Exam: GENERAL: No distress, Alert NEURO: AANDOx3, CN II-XII grossly intact HEENT: normocephalic, atraumatic LUNGS: Unlabored breathing on room air, breath sounds clear CARDIAC: Regular rate and rhythm as above ABDOMEN: Soft, non-tender, non-distended with bowel sounds. EXTREMITIES: LARA, No deformities, No edema, PPP SKIN: Skin color, texture, turgor normal, No rashes or lesions WOUND: IANDD site right upper chest with mild erythema, induration, no fluctuance, small amt dried bloody drainage on dressing. Packing removed, dry dressing applied ASSESSMENT AND PLAN: Active Hospital Problems Diagnosis Date Noted - Anemia - Chest pain 08/20/2019 Priority: B - GI bleed 08/20/2019 Priority: B - Shortness of breath 08/20/2019 Priority: C - Left bundle branch block - Hypertension - Coronary artery disease - Atrial fibrillation (HCC) - S/P AVR 07/04/2019 Overview Note: [address] Cristhian Trifecta pericardial prosthesis at [facility] by Dr. Rivers - Essential hypertension 02/11/2019 - Hyperlipidemia 02/01/2019 79 year old male with PMH HTN, HLD, atrial fibrillation, incarcerated umbilical hernia s/p SBR and hernia repair 11/[address] Felton at [facility], CAD and now s/p 2 vessel CABG and aortic valve replacement 07/04/[address] Rivers who presented with dark stools and concern for GIB. S/p IANDD chest wall furnucle - Medical management per primary - WBC stable @ 4.5 - Culture pending - Hypokalemia: replacement per primary - Local wound care, dry dressing - No need for further drainage. EGS will sign off, Please call with questions. Discussed with attending: Dr Farris SIGNATURE: Janee Mccauley APRN.CNS PATIENT NAME: Elias Shah DATE: August 26, 2019 TIME: 6:17 AM Emergency General Surgery Service Pager: For questions or concerns Mon-Thu 6a-5p please page [phone]. After 5pm and on Weekends and Holidays, please page [phone]. [facility] THERAPY NTon 08-26-2019 THERAPY NT HNO ID: [id number] Author: Aminata GusmanOtr/Carleen Durand Service: Occupational Therapy Author Type: Occupational Therapist Type: Therapy (PT/OT/Speech/Resp) Filed: 08/26/2019 12:01 PM Note Text: OCCUPATIONAL THERAPY MISSED VISIT SERVICE DATE: 08/26/2019 SERVICE TIME: 1147 to 1147 ROOM: [place] [address] Attempted Treatment. Patient not seen due to Declined. Patient reports he has been nauseas all day and does not want to do therapy at this time. Will follow up as able. SIGNATURE: ERIC Mcclain/Carroll PATIENT NAME: Elias Shah DATE: August 26, 2019 TIME: 12:01 PM [facility] CONSULTon 08-25-2019 CONSULT HNO ID: [id number] Author: Lisette Murillo Service: General Surgery Author Type: Resident Type: Consults Filed: 08/25/2019 4:06 PM Note Text: Attestation signed by Jerilyn Farris at 08/26/2019 4:23 PM ==== SURGERY STAFF: I discussed the management of this case with the hand frame surgical elastic knitter and agree with the plan of care as documented. Jerilyn Farris MD August 26, 2019 ==== EMERGENCY GENERAL SURGERY CONSULT SERVICE DATE: 08/25/2019 SERVICE TIME: 3:49 PM REASON FOR CONSULT: abscess/chest wall REQUESTING PHYSICIAN: Dr Peñaloza PRIMARY CARE PHYSICIAN: Mal Main MD Subjective HISTORY OF PRESENT ILLNESS: Mr. Shah is a 79 year old male who presents for evaluation of abscess/chest wall. Patient reports that he noticed a few days ago that he started having pain like when a pimple is coming up. noticed that he started to have redness in the area associated with pain over the R pectoral/areolar region that has steadily increased since onset. Does not have a history of similar lesions in the past. Surgical site is uninvolved and patient notes excellent healing of surgical site. No spontaneous drainage. No nausea or emesis and has been tolerating PO intake well with continued bowel function. Denies fever or chills. No diarrhea. Reports that he has been recovering from surgery uneventfully. Has had limited activity, states that he is to start working with PT tomorrow when they send me. Denies history of tobacco use Denies sig alcohol use Take daily ASA, no other AC/AP FUNCTIONAL STATUS: independent PAST MEDICAL HISTORY Diagnosis Date - Acute kidney injury (HCC) - Acute metabolic encephalopathy - Anemia - Aortic stenosis - Atrial fibrillation (HCC) - Bowel obstruction (HCC) - Coronary artery disease - Hyperlipidemia - Hypertension - Left bundle branch block - Mitral valve annular calcification - Prolonged QT interval - S/P AVR 07/04/[address] Cristhian Trifecta pericardial prosthesis at [facility] by Dr. 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 Rivers - Vitamin D deficiency PAST SURGICAL HISTORY Procedure Laterality Date - ATRIAL APPENDAGE LIGATION 07/04/2019 35 mm AtriCure clip at [facility] by Dr. Rivers - CABG (2) VEIN GRAFTS AND ARTERIAL GRAFT(S 07/04/2019 at [facility] by Dr. Rivers - REPAIR UMBILICAL HERNIA 12/04/2018 after bowel perforation done at [facility] Dr. Young - REPLAC AORT VALV PROSTH VALV 07/04/[address] [facility] Trifecta pericardial prosthesis at [facility] by Dr. Rivers FAMILY HISTORY Problem Relation Age of Onset - Osteoporosis Mother - Heart Mother - Cancer Father lung - Colon Cancer No Family History Social History Tobacco Use - Smoking status: Former Smoker Packs/day: 1.00 Years: 5.00 Pack years: 5.00 Last attempt to quit: 11/23/1954 Years since quittin.7 - Smokeless tobacco: Never Used Substance Use Topics - Alcohol use: Not Currently Comment: social - Drug use: Never Medications Prior to Admission: losartan (COZAAR) 50 mg tablet Take 50 mg by mouth twice daily. Disp: Rfl: Ferrous Fumarate-Iron Ps Cmplx 162-115.2 (106) mg cap Take 1 tablet by mouth once daily. Disp: Rfl: ascorbic acid, vitamin C, (VITAMIN C) 500 mg tablet Take 500 mg by mouth once daily. Disp: Rfl: furosemide (LASIX) 20 mg tablet Take 1 tablet by mouth once daily for 7 days. Disp: 7 tablet Rfl: 0 metoprolol tartrate, short acting, (LOPRESSOR) 25 mg tablet Take 2 tablets by mouth twice daily. (Patient taking differently: Take 25 mg by mouth twice daily. ) Disp: 60 tablet Rfl: 5 guaifen/dextromethorp coronado/pe (GUAIFEN DM ORAL) Take by mouth. Disp: Rfl: Taking aspirin 81 mg chewable tablet Take 2 tablets by mouth once daily. Disp: Rfl: 08/19/2019 atorvastatin (LIPITOR) 40 mg tablet Take 1 tablet by mouth daily at bedtime. Disp: Rfl: Taking polyethylene glycol 3350 (MIRALAX, GLYCOLAX) 17 gram packet Take 1 Packet by mouth once daily as needed. Disp: Rfl: Taking tamsulosin ER (FLOMAX) 0.4 mg cap Take 0.4 mg by mouth once daily. Disp: Rfl: 08/19/2019 at 2000 oxyCODONE ir (OXYIR) 5 mg capsule Take 5 mg by mouth every 6 hours as needed. Disp: Rfl: Taking acetaminophen (TYLENOL) 325 mg tablet Take 2 tablets by mouth every 4 hours as needed. Disp: Rfl: Taking Current Facility-Administered Medications Medication Dose Route Frequency - acetaminophen 650 mg tab(s) (TYLENOL) 650 mg ORAL q 4 H PRN - atorvastatin 40 mg tab(s) (LIPITOR) 40 mg ORAL AT BEDTIME - losartan 50 mg tab(s) (COZAAR) 50 mg ORAL BID - metoprolol tartrate (short acting) 25 mg tab(s) (LOPRESSOR) 25 mg ORAL BID - tamsulosin ER 0.4 mg cap(s) (FLOMAX) 0.4 mg ORAL DAILY - NaCl 0.9% 3-5 mL 3-5 mL INTRAVENOUS q 12 H - NaCl 0.9% 2-10 mL 2-10 mL INTRAVENOUS q 12 H - HYDROcodone 5 mg - acetaminophen 325 mg tablet (NORCO) 1 tablet ORAL q 4 H PRN - ondansetron (PF) 4 mg injection (ZOFRAN) 4 mg INTRAVENOUS PRN - ferrous sulfate 325 mg tab(s) 325 mg ORAL DAILY - aspirin 81 mg chewable tab(s) 81 mg ORAL DAILY - [START ON 08/26/2019] pantoprazole DR 40 mg tab(s) (PROTONIX) 40 mg ORAL DAILY (6 AM) - lidocaine 1%-EPINEPHrine 1:100,000 20 mL injection 20 mL INTRADERMAL ONCE ALLERGIES No Known Allergies COMPLETE REVIEW OF SYSTEMS: PAIN ASSESSMENT: pain at site of R chest lesion GENERAL: No weight loss, malaise or fevers HEENT: No changes in hearing or vision, no nose bleeds or other nasal problems NECK: Negative for lumps, goiter, pain and significant neck swelling RESPIRATORY: Negative for cough, hemoptysis, wheezing, COPD, dyspnea or shortness of breath CARDIOVASCULAR: Negative for chest pain, leg swelling, hypertension, CHF or palpitations GI: No nausea, vomiting, or diarrhea MUSCULOSKELETAL: chest wall pain SKIN: lesion at R chest wall NEURO: No history of headaches, syncope, paralysis, seizures or tremors Objective PHYSICAL EXAM: GENERAL: Alert, no distress, cooperative SKIN: noted lesion to chest wall, are of localized erythema associated with 1-2 mm abscess LUNGS: breathing easily on room air without cough or wheeze CARDIAC: regular rate and rhythm with good peripheral perfusion ABDOMEN: Soft, nontender EXTREMITIES: Extremities normal, no deformities, edema, clubbing or skin discoloration. Good capillary refill. NEURO: Cranial nerves II-XII intact The remainder of the physical exam is noncontributory. BP 151/60 Pulse (!) 53 Temp 36.8 ?C (98.2 ?F) (Oral) Resp 16 Ht 182.9 cm (6') Wt 91.5 kg (201 lb 11.5 oz) SpO2 99% BMI 27.36 kg/m? Body mass index is 27.36 kg/m?. DATA: Diagnostic tests reviewed for today's visit: CBC, Coags, BMP, Mg, Phos Recent Labs 08/25/19 0742 08/25/19 0245 08/24/19 0750 08/24/19 0214 08/22/19 1750 WBC 4.10* -- 3.74* 3.87* -- HB 7.1* -- 7.1* 6.7* 7.9* HCT 22.9* -- 23.6* 21.2* -- PLT 179 -- 161 166 -- INR -- -- -- -- 1.08 NA -- 141 -- -- -- K -- 3.4* -- -- -- CHLOR -- 108* -- -- -- CO2 -- 27 -- -- -- BUN -- 12 -- -- -- CREAT -- 1.28* -- -- -- GLUC -- 96 -- -- -- CA -- 8.0* -- -- -- IMAGING: XR CHEST 2V FRONTAL/LAT Final Result IMPRESSION: 1. Interval decrease in left pleural effusion. 2. Continued elevation of the left hemidiaphragm. 3. Postoperative changes as described above. 4. Otherwise no acute disease. Product Engineering Manager: PSCBishop Transcribe Date/Time: Aug 23 2019 4:28P Dictated by : PEGGY TEJEDA MD This examination was interpreted and the report reviewed and electronically signed by: PEGGY TEJEDA MD on Aug 23 2019 4:31PM EST Impression/Recommenda tions Patient is an 79 yo male with PMH HTN, HLD, atrial fibrillation, incarcerated umbilical hernia s/p SBR and hernia repair 11/[address] Felton at [facility], CAD and now s/p 2 vessel CABG and aortic valve replacement 07/04/[address] Rivers who presented with dark stools and concern for GIB. Surgery consulted HD 5 for abscess/chest wall. Furuncle - small chest wall lesion with localized erythema but no sign of systemic infection - WBC 4.1, afebrile. No abx at present - no imaging needed given nature of lesion - on daily asa last taken this pm, no other AC/AP - plan for bedside drainage of lesion D/W Dr. Farris SIGNATURE: Lisette Murillo MD PATIENT NAME: Elias Shah DATE: August 25, 2019 TIME: 3:48 PM PAGER/CONTACT #: [phone] [facility] CONSULT PROGon 08-25-2019 CONSULT PROG HNO ID: [id number] Author: Zacarias Miles Service: Gastroenterology Author Type: Nurse Practitioner Type: Consult Progress Note Filed: 08/25/2019 2:51 PM Note Text: CONSULT PROGRESS NOTE SERVICE DATE: 08/25/2019 SERVICE TIME: 2:44 PM CONSULTING SERVICE: GASTROENTEROLOGY Subjective INTERVAL HPI: Patient denied abdominal pain, nausea, and vomiting, no stools today, hgb 7.1 Current Facility-Administered Medications Medication Dose Route Frequency - acetaminophen 650 mg tab(s) (TYLENOL) 650 mg ORAL q 4 H PRN - atorvastatin 40 mg tab(s) (LIPITOR) 40 mg ORAL AT BEDTIME - losartan 50 mg tab(s) (COZAAR) 50 mg ORAL BID - metoprolol tartrate (short acting) 25 mg tab(s) (LOPRESSOR) 25 mg ORAL BID - tamsulosin ER 0.4 mg cap(s) (FLOMAX) 0.4 mg ORAL DAILY - NaCl 0.9% 3-5 mL 3-5 mL INTRAVENOUS q 12 H - NaCl 0.9% 2-10 mL 2-10 mL INTRAVENOUS q 12 H - morphine 4 mg injection 4 mg INTRAVENOUS q 4 H PRN - HYDROcodone 5 mg - acetaminophen 325 mg tablet (NORCO) 1 tablet ORAL q 4 H PRN - ondansetron (PF) 4 mg injection (ZOFRAN) 4 mg INTRAVENOUS PRN - ferrous sulfate 325 mg tab(s) 325 mg ORAL DAILY - aspirin 81 mg chewable tab(s) 81 mg ORAL DAILY - [START ON 08/26/2019] pantoprazole DR 40 mg tab(s) (PROTONIX) 40 mg ORAL DAILY (6 AM) Objective PHYSICAL EXAM: Physical Exam Performed: GENERAL: Alert and oriented X 3 in no distress, cooperative and following commands LUNGS: Lungs clear to auscultation anteriorly, even and unlabored on RA CARDIAC: Normal S1 and S2 ABDOMEN: Abdomen soft and non-tender with + BS X 4 without guarding, rebound, or distention PULSES: 2+ radial BP 151/60 Pulse 53 Temp (Src) 98.2 (Oral) Resp 16 Ht 6' 0 (1.83m) Wt 201 lb 11.5 oz (91.5kg) SpO2 99% BMI 27.35 kg/(m2). O2 Therapy: Room Air DATA: Diagnostic tests reviewed for today's visit: Ref. Range 08/25/2019 02:45 Sodium Latest Ref Range: 136 - 145 mEq/L 141 Potassium Latest Ref Range: 3.5 - 5.1 mEq/L 3.4 (L) Chloride Latest Ref Range: 98 - 107 mEq/L 108 (H) CO2 Latest Ref Range: 21 - 32 mEq/L 27 BUN Latest Ref Range: 7 - 18 mg/dL 12 Creatinine Latest Ref Range: 0.67 - 1.17 mg/dL 1.28 (H) Glucose Latest Ref Range: 70 - 99 mg/dL 96 Protein, Total Latest Ref Range: 6.4 - 8.2 g/dL 6.3 (L) Calcium Latest Ref Range: 8.5 - 10.1 mg/dL 8.0 (L) Albumin Latest Ref Range: 3.4 - 5.0 g/dL 2.6 (L) Bilirubin, Total Latest Ref Range: 0.2 - 1.0 mg/dL 0.3 Alkaline Phosphatase Latest Ref Range: 45 - 117 U/L 87 ALT Latest Ref Range: 12 - 78 U/L 11 (L) AST Latest Ref Range: 15 - 37 U/L 15 Anion Gap Latest Ref Range: 8 - 16 9 eGFR Latest Ref Range: >60mL/min/1.73m2 53.89 Ref. Range 08/25/2019 07:42 WBC Latest Ref Range: 4.23 - 9.07 thou/cmm 4.10 (L) RBC Latest Ref Range: 4.63 - 6.08 mil/cmm 2.51 (L) HGB Latest Ref Range: 13.7 - 17.5 g/dL 7.1 (L) Hematocrit Latest Ref Range: 40.1 - 51.0 % 22.9 (L) Platelet Count Latest Ref Range: 141 - 365 thou/cmm 179 MCV Latest Ref Range: 83.2 - 95.6 fl 91.2 Impression/Recommenda tions 1). Acute normocytic anemia with melena-s/p EGD on 08/22 which was WNL, s/p colonoscopy 08/23 showed diverticulosis and colon polyp, hgb 7.1, last stool yesterday, on PPI and iron supplement Assessment AND Plan: Continue to monitor h/h, transfuse <7, monitor stools, continue PPI and iron supplement, and consider outpatient capsule endoscopy (will need to remain off iron supplement for about a week, call [phone] to schedule appointment with Dr. Peter). ? GI will sign off call with questions SIGNATURE: Zacarias Miles APRN.CNP PATIENT NAME: Elias Shah DATE: August 25, 2019 TIME: 2:46 PM NUMBER: [phone] [facility] NURSING PROGon 08-25-2019 NURSING PROG HNO ID: [id number] Author: Yenifer (Rn) AGUSTO Tamayo Service: ? Author Type: Registered Nurse Type: Nursing Progress Note Filed: 08/25/2019 9:25 AM Note Text: Dr Peñaloza notified of pt's c/o painful rash on forehead and raised, reddened cyst-like area to right breast. He will address. [facility] NURSING PROG HNO ID: [id number] Author: Fernanda (Rn) AGUSTO Diaz Service: ? Author Type: Registered Nurse Type: Nursing Progress Note Filed: 08/25/2019 3:45 AM Note Text: Nursing Progress Note Patient Name: Elias Shah Patient Location: [id number]/[facility]- [id number] Daily Note: 0255: RN paged Sound at #[phone] regarding pt's BP of 170/72. Pt asymptomatic. No new orders at this time. RN will continue to monitor. This note was completed by: Fernanda Diaz RN [facility] NUTRITIONon 08-25-2019 NUTRITION HNO ID: [id number] Author: Sydnee Fisher RD (Ld) Service: Nutrition Therapy Author Type: Registered Dietitian Type: Nutrition Filed: 08/25/2019 12:40 PM Note Text: NUTRITION THERAPY PROGRESS NOTE SERVICE DATE: 08/25/2019 SERVICE TIME: 11:30 AM RECOMMENDED DIAGNOSIS: NO MALNUTRITION IDENTIFIED per Registered Dietitian on 08/22/19 NUTRITION CARE PLAN No nutrition diagnosis at this time Intervention: -Continue regular diet -note goal for diet: Heart Healthy -Encouraged to pt to continue with adequate oral intake -Noted potassium replaced today-potassium lab low- 3.4 -Consider addition of iron supplementation Coordination of Care: Nursing Monitor and Evaluation: Goal: Meet >75% of estimated needs Monitor fluid/electrolyte balance Monitor labs, I/Os, vital signs, weight Discharge Nutrition Recommendations: Diet: Heart Healthy Chart reviewed for nutrition follow-up. Interval History: Pt had EGD on 08/22/19. EGD showed normal exam up to proximal jejunum. Colonoscopy done 08/23/19, showed GI bleed with ascending colon polp, severe diverticulosis. Plan at discharge is to go to SNF. PT recommending acute rehab. BM 08/24/19. Nutritional Intake: >75% estimated energy needs over the past 2 day(s), per nursing flow sheet documentation pt consuming 75-100% of meals except for when NPO for procedures at breakfast on 08/23 and 08/22. Met with pt and reports eating well when allowed a diet., but this am did not eat as much due to pancakes fell aprt and fruit was too hard, but otherwise per pt, the food is really good. Encouraged pt to continue with adequate oral itnake. Orders Placed This Encounter DIET REGULAR Standing Status: Standing Number of Occurrences: 1 Lines and Drains: Peripheral 08/20/19 1504 Admission to Hospital Short Right Antecubital 20 Gauge (Active) Height: 182.9 cm (6') Admission Weight: 90.3 kg (199 lb) Current Weight: 91.5 kg (201 lb 11.5 oz) Body mass index is 27.36 kg/m?. overweight, however healthy weight for age> 65 Recent Labs 08/25/19 0245 08/24/19 0750 GLUC 96 -- BUN 12 -- CREAT 1.28* -- NA 141 -- K 3.4* -- CHLOR 108* -- CO2 27 -- ALB 2.6* -- HB -- 7.1* HCT -- 23.6* WBC -- 3.74* MNT Billing Type: Re-assess/15 min 2 units SIGNATURE: WILLIAM Belcher PATIENT NAME: Elias Shah DATE: August 25, 2019 TIME: 8:09 AM PAGER: [phone] Normal [facility] PROCEDUREon 08-25-2019 PROCEDURE HNO ID: [id number] Author: Lisette Murillo Service: General Surgery Author Type: Resident Type: Procedures Filed: 08/25/2019 5:56 PM Note Text: Attestation signed by Jerilyn Farris at 08/26/2019 4:23 PM Jerilyn Farris MD August 26, 2019 BEDSIDE PROCEDURE NOTE PROCEDURE DATE: August 25, 2019 PROCEDURE START TIME: 4:50 pm PRIMARY PROCEDURALIST: Lisette Murillo MD BOX ICER(S): None INFORMED CONSENT: Informed Consent obtained and on the chart UNIVERSAL PROTOCOL / SAFETY CHECKLIST Sign in Communication: Completed Time Out: Team Confirms the Correct Patient, Correct Procedure, Correct Site and Site Marking, Correct Position (if applicable), Prep and Dry Time (if applicable). Time: 4:50 PM Affirmation of Time Out: YES Sign Out Discussion: Completed PROCEDURE: INCISION AND DRAINAGE Indication: Abscess located on Right chest Analgesia/Sedation: Local; lidocaine and epinephrine Site Prep: Chlorhexidine gluconate 4% which was allowed to dry Approach: Open Incision made with a 11 blade scalpel. A scant amount of purulent fluid was drained. Packing was placed with edge of gauze 4x4. Wound was dressed with sterile gauze. Depth of Incision: Subcutaneous tissue Drainage Device: None Patient tolerated procedure well. Complications: None Specimens: Cultures sent Estimated Blood Loss: Scant SIGNATURE: Lisette Murillo MD PATIENT NAME: Elias Shah DATE: August 25, 2019 TIME: 5:53 PM PAGER/CONTACT #: [phone] [facility] PROGRESSon 08-25-2019 PROGRESS HNO ID: [id number] Author: Ben Peñaloza Service: Hospital Medicine Author Type: Physician Type: Progress Notes Filed: 08/25/2019 3:09 PM Note Text: INPATIENT PROGRESS NOTE SERVICE DATE: 08/25/2019 SERVICE TIME: 3:07 PM PRIMARY SERVICE: Hospitalist Subjective CHIEF COMPLAINT: upper GI bleeding INTERVAL HPI: Stable hemoglobin, dark stools related to iron supplements. Current Facility-Administered Medications Medication Dose Route Frequency - acetaminophen 650 mg tab(s) (TYLENOL) 650 mg ORAL q 4 H PRN - atorvastatin 40 mg tab(s) (LIPITOR) 40 mg ORAL AT BEDTIME - losartan 50 mg tab(s) (COZAAR) 50 mg ORAL BID - metoprolol tartrate (short acting) 25 mg tab(s) (LOPRESSOR) 25 mg ORAL BID - tamsulosin ER 0.4 mg cap(s) (FLOMAX) 0.4 mg ORAL DAILY - NaCl 0.9% 3-5 mL 3-5 mL INTRAVENOUS q 12 H - NaCl 0.9% 2-10 mL 2-10 mL INTRAVENOUS q 12 H - morphine 4 mg injection 4 mg INTRAVENOUS q 4 H PRN - HYDROcodone 5 mg - acetaminophen 325 mg tablet (NORCO) 1 tablet ORAL q 4 H PRN - ondansetron (PF) 4 mg injection (ZOFRAN) 4 mg INTRAVENOUS PRN - ferrous sulfate 325 mg tab(s) 325 mg ORAL DAILY - aspirin 81 mg chewable tab(s) 81 mg ORAL DAILY - [START ON 08/26/2019] pantoprazole DR 40 mg tab(s) (PROTONIX) 40 mg ORAL DAILY (6 AM) Objective PHYSICAL EXAM: BP 151/60 Pulse 53 Temp (Src) 98.2 (Oral) Resp 16 Ht 6' 0 (1.83m) Wt 201 lb 11.5 oz (91.5kg) SpO2 99% BMI 27.35 kg/(m2). O2 Therapy: Room Air Constitutional - Vitals as above, NAD Respiratory - Clear to auscultate both sides. No crackles, wheezes or rales, No labored breathing noted CVS- RRR, no murmur/gallop/rub, pulse 2+ GI- NTND, bowel sounds normally heard DATA: Diagnostic tests reviewed for today's visit: Assessment/Plan 79 Y/O M wih PMHx CAD s/p CABG and AVR, paroxysmal Afib s/p LORENE excision in 06/2019 who presented with weakness and melenic bwel movements on 08/20. # Melena: Per patient, he continue to endorse dark stool which is related to Iron supplements, Hemoglobin has been stable around 7 mg/dl. BUN hasn't been checked in few days. Patient had EGD and Colonoscopy this admission, EGD was negative. Colonoscopy showed one polyp and extensive diverticulosis. Patient might need capsule endoscopy, this will be done as outpatient, he need to remain off iron supplements for one week. # CAD denies any active angina, Trop were negative on admission, patient on ASA 81 and Metoprolol # Primary HTN: On Losartan Medication and Non-Pharmacologic VTE Prophylaxis/Anticoagu lants Anticoagulant AND Antiplatelet Medications (From admission, onward) Start Dose Route Frequency Ordered Stop 08/23/19 1600 aspirin 81 mg chewable tab(s) 81 mg ORAL DAILY 08/23/19 1543 -- 08/24/19 0945 activity - mobilize [place] ([place]) 08/20/19 1615 vte pharmacologic prophylaxis contraindicated ([place] 08/20/19 1615 pneumatic compression stockings ([place]) VTE Prophylaxis: VTE prophylaxis appropriate SIGNATURE: Ben Peñaloza MD PATIENT NAME: Elias Shah DATE: 08/25/2019 TIME: 3:07 PM PAGER: [phone] [facility] PROGRESS HNO ID: [id number] Author: Landen Izquierdo (Pharmacist) Service: Pharmacy Author Type: Pharmacist Type: Progress Notes Filed: 08/25/2019 12:09 PM Note Text: Pharmacy Consult Agreement: IV to PO Conversion Patient Name: Elias Shah Service Date: 08/25/2019 Service Time: 12:06 PM The following changes have been made to the patient's medication therapy as part of the pharmacy consult agreement. Criteria Supporting Route Conversion: Patient successfully using oral medications Current Therapy: Pantoprazole 40mg IV daily New Therapy: Pantoprazole 40mg PO daily Thank you for allowing me to participate in the care for this patient. Signature: JESUS ALBERTO PEREZ Pager/Extension: [phone] [facility] THERAPY NTon 08-25-2019 THERAPY NT HNO ID: [id number] Author: Nohemi GusmanPtSachin Meehan Service: Physical Therapy Author Type: Physical Therapist Type: Therapy (PT/OT/Speech/Resp) Filed: 08/25/2019 1:57 PM Note Text: Physical Therapy Treatment SERVICE DATE: 08/25/2019 SERVICE TIME: 1055 to 1118 ROOM: [place] [address] Recommended Discharge Disposition: Subacute/SNF Justification For Post Acute Needs: Anticipate patient will tolerate 3 hours of daily therapy at the time of admission to post-acute setting;Cognition intact;Good sitting tolerance;Motivated;W illing to participate PT Recommendations to Nursing: Transfer to/from chair;OOB for Meals;With assist of 1 person;Sit at edge of bed Device: Wheeled Walker PT 6 Clicks Score: 17 Precautions/Activity Restrictions: Sternal;Lines/Tubes/D rains Precaution/Activity Restriction Comments: sternal precautions Isolation Type: None ASSESSMENT : Patient content and reports no complaints of pain. Patient reporting he feels better today. Patient able to ambulate in halls this session. Patient is improving toward mobility and ambulation goals. Patient is below baseline function of independent and will benefit from continued skilled therapy to address listed impairments and maximize independence. Patient Disposition at Start of Session: OOB in Chair;Call [facility] in Reach Patient Disposition at End of Session: Call [facility] in Reach;OOB in Chair Tolerated Full Session Fatigue Patient /Caregiver Goals: Walk;Go To Rehab Goals for Plan of Care: Able to perform HEP with: Supervision Rolling with: Stand By Assistance Transfer supine to/from sit with: Stand By Assistance Transfer sit to/from stand with: Contact Guard Assistance Ambulate with: Contact Guard Assistance Distance: 10' Device: Wheeled Walker Progress Toward Goals: Progressing as expected Rehab Potential: Good PLAN: Treatment Frequency (times per week): 5(2-5) Current admission Treatment Interventions: Education;Self Care / Home Management;Energy Conservation Training;Strengthenin g;Functional Mobility Training;Balance Training;Neuromuscula r Re-education Plan of Care developed with: Patient TREATMENT INTERVENTIONS: Therapy Diagnosis: Reduced mobility-other;Decrea sed activities of daily living (ADL);Muscle Weakness (generalized);Unstead iness on feet;Difficulty walking-musculoskelet al;Abnormalities of gait and mobility-other Interventions Provided: Gait Training (81418);Therapeutic Activity (45178) Therapeutic Activity (60534) Treatment Minutes: 15 1 unit Skilled Intervention(s): Instruction in sit to stand technique with proper hand placement and body positioning at edge of bed/chair Instruction in stand to sit technique with lower extremities touching chair/bed and reaching back for surface - for balance Instruction in sit to and from stand technique with proper hand placement and body positioning at edge of bed/chair Education with proper hand placement for safety during transfers. Patient demo good understanding by performing. Patient completed general strengthening exercises bilateral lower extremity, in chair, no assist (ankle pump, isometric hip abd/add, long arc quad, marching, ) x 10-15 reps. Gait Training (94894) Treatment Minutes: 8 1 unit Skilled Intervention(s): Instruction in sit to stand technique with proper hand placement and body positioning at edge of bed/chair, Instruction in stand to sit technique with LE's touching chair/bed and reaching back for surface, Instruction in sequencing, gait pattern and Instruction in use of equipment, cues for sequence and pattern. Patient able to ambulate in halls in 25' intervals, needing min cues for proper use of wheeled walker, keeping feet/body inside walker while ambulating. Total Timed Code Treatment Minutes: 23 Total Treatment Time (minutes): 23 SUBJECTIVE: Current Hospital Course: Chart reviewed and no significant medical updates relevant to therapy were noted Reason for Physical Therapy Consult : eval and treat Relevant Past Medical History: aortic stenosis, anemia, afib, Aortic Valve replacement (sternal precauts). Patient Report: Patient content and agreeable to therapy. No complaints of pain and motivated to get better. Thanks for working with me. Home Environment Patient Lives With: Family(sister) Assistance Available: 24 Hour Entry To Home: Stairs;With Rail Number Of Stairs Into Home: 3 Number Of Stairs To Bed/Bath: ranch home/one level Tub/Shower Type: tub/shower Laundry: sister completes Equipment Owned: Wheeled Walker;Grab Bars-Shower;Grab Bars-Toilet;Elevated Toilet Seat Prior Functional Level: Within Functional Limits Prior Functional Level Comments: Patient ambulates using wheeled walker and does own ADL. Sister does home mangement and drives. OBJECTIVE: CURRENT FUNCTIONAL STATUS: Current Functional Mobility Assist Level Additional Information Rolling Supine to Sit Sit to Supine Scooting Sit to Stand Minimal Assistance Stand to Sit Contact Guard Assistance Bed to Chair Toilet/Commode Gait Contact Guard Assistance Gait Device: Wheeled Walker Gait Distance (feet): 25' intervals Stairs Curb Step Car Transfer General Gait Deviations: Suzan decreased;Step length decreased;Non-functio nal gait speed -M: 7: Walk 25 feet or more Please see discipline specific clinical documentation flowsheet for complete details for this therapy evaluation/treatment. SIGNATURE: ELSI Jewell PATIENT NAME: Elias Shah DATE: August 25, 2019 TIME: 11:22 AM Patient care delivered with direct supervision of PT Clinical Instructor in accordance with treatment plan. I reviewed and agree with the documentation corresponding to this therapy visit. SIGNATURE: Nohemi Meehan, PT DATE: August 25, 2019 TIME: 1:57 PM [facility] CASE MANAGEMon 08-24-2019 CASE MANAGEM HNO ID: [id number] Author: Barbara Roque RN Service: Care Management Author Type: Registered Nurse Type: Care Mgt Progress Note Filed: 08/24/2019 3:52 PM Note Text: CARE MANAGEMENT PROGRESS NOTE SERVICE DATE: 08/24/2019 SERVICE TIME: 3:42 PM LOS: 4 days Needs Prior to Discharge: Discharge Transportation [facility] has accepted pt and he is ready to D/C when medically stable. Will need W/C transport. ADDENDUM: Notified pt's sister, Helena of D/C plan. SIGNATURE: Barbara Roque RN PATIENT NAME: Elias Grantdes DATE: August 24, 2019 TIME: 3:42 PM PAGER/CONTACT #: [phone] [facility] CASE MANAGEM HNO ID: [id number] Author: Barbara Roque RN Service: Care Management Author Type: Registered Nurse Type: Care Mgt Progress Note Filed: 08/24/2019 1:01 PM Note Text: CARE MANAGEMENT PROGRESS NOTE SERVICE DATE: 08/24/2019 SERVICE TIME: 12:59 PM LOS: 4 days FREEDOM OF CHOICE GIVEN: Yes Pt does not think he can do 3 hrs of intensive therapy at Rehab. Preference: Would like to go to [facility]. [facility]. Referral placed. SIGNATURE: Barbara Roque RN PATIENT NAME: Elias Yen Alyssa DATE: August 24, 2019 TIME: 12:58 PM PAGER/CONTACT #: [phone] [facility] CASE MANAGEM HNO ID: [id number] Author: Barbara Roque RN Service: Care Management Author Type: Registered Nurse Type: Care Mgt Progress Note Filed: 08/24/2019 12:58 PM Note Text: CARE MANAGEMENT PROGRESS NOTE SERVICE DATE: 08/24/2019 SERVICE TIME: 10:34 AM LOS: 4 days FREEDOM OF CHOICE GIVEN: Yes Met with pt, PT/OT rec Acute Rehab. Pt is from [place] and wants to stay in the area Preference: [place] [facility] Referral placed. Pt would like CM to let his sister, Helena know and she will be stef after 1 PM today. Pt will need transport at D/C, as sister does not drive long distance nor on the freeway. SIGNATURE: Barbara Roque RN PATIENT NAME: Elias Shah DATE: August 24, 2019 TIME: 10:34 AM PAGER/CONTACT #: [phone] [facility] CONSULT PROGon 08-24-2019 CONSULT PROG HNO ID: [id number] Author: Zacarias Miles Service: Gastroenterology Author Type: Nurse Practitioner Type: Consult Progress Note Filed: 08/24/2019 2:26 PM Note Text: CONSULT PROGRESS NOTE SERVICE DATE: 08/24/2019 SERVICE TIME: 2:10 PM CONSULTING SERVICE: GASTROENTEROLOGY Subjective INTERVAL HPI: S/p EGD on 08/22 and colonoscopy 08/23 with no source of bleeding, hgb 7.1, patient stated he had one bowel movement today (black, on iron supplements). Current Facility-Administered Medications Medication Dose Route Frequency - acetaminophen 650 mg tab(s) (TYLENOL) 650 mg ORAL q 4 H PRN - atorvastatin 40 mg tab(s) (LIPITOR) 40 mg ORAL AT BEDTIME - losartan 50 mg tab(s) (COZAAR) 50 mg ORAL BID - metoprolol tartrate (short acting) 25 mg tab(s) (LOPRESSOR) 25 mg ORAL BID - tamsulosin ER 0.4 mg cap(s) (FLOMAX) 0.4 mg ORAL DAILY - NaCl 0.9% 3-5 mL 3-5 mL INTRAVENOUS q 12 H - NaCl 0.9% 2-10 mL 2-10 mL INTRAVENOUS q 12 H - pantoprazole 40 mg injection (PROTONIX) 40 mg INTRAVENOUS DAILY (6 AM) - morphine 4 mg injection 4 mg INTRAVENOUS q 4 H PRN - HYDROcodone 5 mg - acetaminophen 325 mg tablet (NORCO) 1 tablet ORAL q 4 H PRN - ondansetron (PF) 4 mg injection (ZOFRAN) 4 mg INTRAVENOUS PRN - ferrous sulfate 325 mg tab(s) 325 mg ORAL DAILY - aspirin 81 mg chewable tab(s) 81 mg ORAL DAILY Objective PHYSICAL EXAM: Physical Exam Performed: GENERAL: Alert in no distress, cooperative and following commands LUNGS: Lungs clear to auscultation, even and unlabored on RA CARDIAC: Normal S1 and S2 ABDOMEN: Abdomen soft and non-tender with + BS X 4 without guarding, rebound, or distention PULSES: 2+ radial BP 159/70 Pulse 56 Temp (Src) 98.2 (Oral) Resp 20 Ht 6' 0 (1.83m) Wt 199 lb 1.2 oz (90.3kg) SpO2 98% BMI 26.99 kg/(m2). O2 Therapy: Room Air DATA: Diagnostic tests reviewed for today's visit: Ref. Range 08/24/2019 07:50 WBC Latest Ref Range: 4.23 - 9.07 thou/cmm 3.74 (L) RBC Latest Ref Range: 4.63 - 6.08 mil/cmm 2.55 (L) HGB Latest Ref Range: 13.7 - 17.5 g/dL 7.1 (L) Hematocrit Latest Ref Range: 40.1 - 51.0 % 23.6 (L) Platelet Count Latest Ref Range: 141 - 365 thou/cmm 161 MCV Latest Ref Range: 83.2 - 95.6 fl 92.5 Impression/Recommenda tions 1). Acute normocytic anemia with melena-s/p EGD on 08/22 which was WNL, s/p colonoscopy 08/23 showed diverticulosis and colon polyp, hgb 7.1, one black stool today per patient, on PPI and iron supplement Assessment AND Plan: Continue to monitor h/h, transfuse <7, monitor stools, continue PPI and iron supplement, and consider outpatient capsule endoscopy (will need to remain off iron supplement for about a week). SIGNATURE: Zacarias Miles APRN.[employer]ACH PATIENT NAME: Elias Shah DATE: August 24, 2019 TIME: 2:10 PM NUMBER: [phone] [facility] PROGRESSon 08-24-2019 PROGRESS HNO ID: [id number] Author: eBn Peñaloza Service: Hospital Medicine Author Type: Physician Type: Progress Notes Filed: 08/24/2019 3:56 PM Note Text: INPATIENT PROGRESS NOTE SERVICE DATE: 08/24/2019 SERVICE TIME: 3:39 PM PRIMARY SERVICE: Hospitalist Subjective CHIEF COMPLAINT: upper GI bleeding INTERVAL HPI: Patient continue to endorse melenic bowel movements, Hemoglobin stable ~ 7 mg/dl. Current Facility-Administered Medications Medication Dose Route Frequency - acetaminophen 650 mg tab(s) (TYLENOL) 650 mg ORAL q 4 H PRN - atorvastatin 40 mg tab(s) (LIPITOR) 40 mg ORAL AT BEDTIME - losartan 50 mg tab(s) (COZAAR) 50 mg ORAL BID - metoprolol tartrate (short acting) 25 mg tab(s) (LOPRESSOR) 25 mg ORAL BID - tamsulosin ER 0.4 mg cap(s) (FLOMAX) 0.4 mg ORAL DAILY - NaCl 0.9% 3-5 mL 3-5 mL INTRAVENOUS q 12 H - NaCl 0.9% 2-10 mL 2-10 mL INTRAVENOUS q 12 H - pantoprazole 40 mg injection (PROTONIX) 40 mg INTRAVENOUS DAILY (6 AM) - morphine 4 mg injection 4 mg INTRAVENOUS q 4 H PRN - HYDROcodone 5 mg - acetaminophen 325 mg tablet (NORCO) 1 tablet ORAL q 4 H PRN - ondansetron (PF) 4 mg injection (ZOFRAN) 4 mg INTRAVENOUS PRN - ferrous sulfate 325 mg tab(s) 325 mg ORAL DAILY - aspirin 81 mg chewable tab(s) 81 mg ORAL DAILY Objective PHYSICAL EXAM: BP 159/72 Pulse 52 Temp (Src) 98.4 (Oral) Resp 20 Ht 6' 0 (1.83m) Wt 199 lb 1.2 oz (90.3kg) SpO2 99% BMI 26.99 kg/(m2). O2 Therapy: Room Air Constitutional - Vitals as above, NAD Respiratory - Clear to auscultate both sides. No crackles, wheezes or rales, No labored breathing noted CVS- RRR, no murmur/gallop/rub, pulse 2+ GI- NTND, bowel sounds normally heard DATA: Diagnostic tests reviewed for today's visit: Assessment/Plan 79 Y/O M wih PMHx CAD s/p CABG and AVR, paroxysmal Afib s/p LORENE excision in 06/2019 who presented with weakness and melenic bwel movements on 08/20. # Melena: Per patient, he continue to endorse bloody bowel movements. Hemoglobin has been stable around 7 mg/dl. BUN hasn't been checked in few days. Patient had EGD and Colonoscopy this admission, EGD was negative. Colonoscopy showed one polyp and extensive diverticulosis. Currently on PPI and Iron supplements. # CAD denies any active angina, Trop were negative on admission, patient on ASA 81 and Metoprolol # Primary HTN: On Losartan Medication and Non-Pharmacologic VTE Prophylaxis/Anticoagu lants Anticoagulant AND Antiplatelet Medications (From admission, onward) Start Dose Route Frequency Ordered Stop 08/23/19 1600 aspirin 81 mg chewable tab(s) 81 mg ORAL DAILY 08/23/19 1543 -- 08/24/19 0945 activity - mobilize patient (ct,sc) 08/20/19 1615 vte pharmacologic prophylaxis contraindicated ([place]) 08/20/19 1615 pneumatic compression stockings ([place]) VTE Prophylaxis: VTE prophylaxis appropriate SIGNATURE: Ben Peñaloza MD PATIENT NAME: Elias Shah DATE: 08/24/2019 TIME: 3:39 PM PAGER: [phone] Normal [facility] THERAPY NTon 08-24-2019 THERAPY NT HNO ID: [id number] Author: Chloe (Otr/LSachin Asher Service: Occupational Therapy Author Type: Occupational Therapist Type: Therapy (PT/OT/Speech/Resp) Filed: 08/24/2019 11:16 AM Note Text: Occupational Therapy Evaluation SERVICE DATE: 08/24/2019 SERVICE TIME: 55 to 1022 ROOM: [place] [id number] Recommended Discharge Disposition: Acute Rehab Recommended Discharge Disposition Comments: Patient has had a functional decline from prior level of fully independent at walker level, living home with sister. Justification For Post Acute Needs: Anticipate patient will tolerate 3 hours of daily therapy at the time of admission to post-acute setting;Anticipated community discharge;Good family support;Good premorbid functional status;Living the community premorbidly;Medically complex;Willing to participate;Motivated ;Anticipate that patient will require daily (5x/wk) skilled therapy in a post-acute facility setting at the time of acute hospital discharge OT Recommendations to Nursing: To Bathroom for ADL?s /and or Toileting;OOB for meals;With assist of 1 person Equipment: Wheeled Walker OT 6 Clicks Score: 17 Precautions/Activity Restrictions: Sternal;Lines/Tubes/D rains Precaution/Activity Restriction Comments: sternal precautions Isolation Type: None ASSESSMENT: Patient presents from home with chest pain/GI bleed, with deficits in strength (L side with noted mild weakness vs R side), impaired functional activity tolerance, mildly impaired standing balance, and mildly impaired cognitive/safety awareness as well as anxiety regarding medical issues. Deficits impact patient ability to complete self care at prior level of independence. Patient with complex recent medical history, including Aortic Valve replacement, that also impacts strength and independence. Recommend intensive post acute OT/rehab at inpatient level to maximize strength, balance, functional activity tolerance and cognitive/safety awareness in order to return to independent level for ADL/home mobility with wheeled walker and safely return home with sister. Sister supportive, but unable to provide physical assist with ADL/mobility, though does provide most home management and driving for patient. Patient reports being motivated for rehab when they have my medical issues sorted out and I know what's going on. Patient Disposition at Start of Session: OOB in Chair;Call Slade in Reach Tolerated Full Session Occupational Therapy Problem List: Cognitive Deficit;Education Deficit;Safety Deficits;Impaired Self Care;Decreased Activity Tolerance;Decreased Strength;Functional Mobility Impairment;Balance Impaired Patient /Caregiver Goals: Care For Self(I'd like to get stronger once they find why I'm bleeding) Goals for Plan of Care: Able to perform HEP with: Independent(for distal BUE strengthening to enhance UE strength for ADL) Feeding with: Independent Grooming with: Stand By Assistance Upper Body Bathing with: Set Up Upper Body Dressing with: Set Up Lower Body Bathing with: Contact Guard Assistance Lower Body Dressing with: Stand By Assistance Toilet Hygiene with: Supervision Toilet Transfer with: Stand By Assistance Shower Transfer with: Contact Guard Assistance Tolerate (minutes of functional activity): 40 Functional Activity with: Contact Guard Assistance Additional Goal 1: Patient will complete functional mobility for ADL/ADL item retrieval with wheeled walker and SBA, with minimal verbal cues for safety. Demonstrate Competence With Education with: Verbal Cues Only(for ADL safety, HEP) Increased Awareness of Cognitive Impairments as Related to ADL's/IADL's: Demonstrated;Verbaliz ed(for safety with ADL/mobility) Rehab Potential: Good PLAN: Treatment Frequency (times per week): 5(2-5 times per week) Current admission Treatment Interventions: Education;Self Care / Home Management;Strengthen ing;Functional Mobility Training;Balance Training;Cognitive Training Plan of Care developed with: Patient TREATMENT INTERVENTIONS: Therapy Diagnosis: Reduced mobility-other;Decrea sed activities of daily living (ADL);Muscle Weakness (generalized);Unstead iness on feet;Signs and Symptoms Involving Cognitive Functions and Awareness Interventions Provided: Evaluation;Self Fdc Management (88075) $ Evaluation-Moderate (02370) Billed Units: 1 unit OT Evaluation Moderate Complexity: Occupational Profile - Extended review of patient's medical record completed including patient's physical, cognitive, and psycho-social history (please see current hospital course of evaluation). Occupational Performance - Pt presents with deficits in feeding, grooming, UE bathing/dressing, LE bathing/dressing, functional transfers, functional mobility, decreased safety awareness, decreased insight into deficits Complexity in Clinical Decision Making - The extent of clinical reasoning was moderate, several treatment options present for the patient, need for modification during the evaluation was minimal/moderate, comorbidities affecting occupational performance: sternal precautions/recent Aortic valve replacement, h/o encephalopathy, anemia, HTN. Self Fdc Management (38606) Treatment Minutes: 13 1 unit Skilled Intervention(s): ADL training provided at bathroom level, with wheeled walker for mobility. Patient's functional performance with tasks with skilled assist noted below. Walker safety/ADL transfer education provided. Cues for scooting fully to edge of chair/bed to prepare for transfer, as well as for hand placement and body positioning to increase ease/independence with sit<>stand. Cues for safety with turning/backing to toilet or turning in small areas. Toilet transfer/toileting training provided, with cues for use of grab bars with sit<>stand for safety and slower rate of stand to sit. Grooming/UB self care training provided in standing at sink to progress activity tolerance and independence. Cues for upright posture, use of one UE for support on sink as needed for balance during functional tasks/functional reach for ADL items. Review of plan of care and discharge recommendation provided. Rehab goals/procedures reviewed with patient. Positioned for comfort in chair, with call light and needs in reach at end of sesssion. Interdisciplinary collaboration completed with PT, care management for discharge planning. Total Timed Code Treatment Minutes: 13 Total Treatment Time (minutes): 28 SUBJECTIVE: Current Hospital Course: Chart reviewed; This patient was admitted for SOB, GI complications,weaknes s; has the past medical history of anemia, S/p open heart surgery 5 weeks (sternal precautions). Active Hospital Problems Diagnosis - Anemia - Chest pain - GI bleed - Shortness of breath - Left bundle branch block - Hypertension - Coronary artery disease - Atrial fibrillation (HCC) - S/P AVR [address] [employer] pericardial prosthesis at [facility] by Dr. Rivers - Essential hypertension - Hyperlipidemia Reason for Occupational Therapy Consult: recent change in ability to complete self care Relevant Past Medical History: aortic stenosis, anemia, afib, Aortic Valve replacement (sternal precauts). Patient Report: Patient pleasant, agreeable to therapy. No report of pain, just, my left side is just so weak and tired. Patient reports, I know I need to get some rehab, but I'm not leaving here until they can tell me where my bleeding is coming from. I'm very frightened by all of this. Home Environment Patient Lives With: Family(sister) Assistance Available: 24 Hour Entry To Home: Stairs;With Rail Number Of Stairs Into Home: 3 Number Of Stairs To Bed/Bath: ranch home/one level Tub/Shower Type: tub/shower Laundry: sister completes Equipment Owned: Wheeled Walker;Grab Bars-Shower;Grab Bars-Toilet;Elevated Toilet Seat Prior Functional Level: Within Functional Limits Prior Functional Level Comments: Patient ambulates using wheeled walker and does own ADL. Sister does home mangement and drives. OBJECTIVE: Cognition/Communicati on Deficits Orientation Deficits: (mild intermittent confusion re: home/location, history) Responsiveness: Alert Follows Commands: 2-step Commands;Cueing Needed Cueing to Follow Commands: Minimum Attention Deficits: Distractible(at times by anxiety over bleeding/medical issues) Memory Deficits: Short Term Executive Function Deficits: Insight to Deficits;Problem Solving;Safety Awareness Insight to Deficits: Minimal impairment Problem Solving Deficit: Minimal impairment Safety Awareness Deficit: Minimal impairment CURRENT FUNCTIONAL STATUS: Current Activities of Daily Living Assist Level Feeding Set Up Grooming Contact Guard Assistance Bathing Upper Body Stand By Assistance Bathing Lower Body Moderate Assistance Dressing Upper Body Stand By Assistance Dressing Lower Body Moderate Assistance Toileting Minimal Assistance Functional Mobility Assist Level Sit to Stand Minimal Assistance Stand to Sit Minimal Assistance Bed to Chair Minimal Assistance Stand Pivot Wheeled Walker Toilet/Commode Minimal Assistance Functional Mobility Minimal Assistance Wheeled Walker Functional Mobility Comments: In room, to bathroom Hand Dominance: Right Range of Motion: WFL Except(within sternal precautions) Strength: Strength Limitation Comments Strength Limitation Comments: Shoulders able to hold at 90 degrees 15 seconds. Distal RUE 4-/5 to 4/5 . Distal LUE 3+/5 overall Right Upper Extremity Strength Comments: Shoulders NT-able to hold at 90 degrees flexion for 15 sec. Distal RUE strength 4-/5 to 4/5 Left Upper Extremity Strength Comments: Shoulder NT-able to hold at 90 degrees flexion x 10 seconds before fatigue. Distal LUE 3+/5 Mild LUE weakness vs RUE. Noted in LLE as well with ADL standing/mobility. Balance: Dynamic Sitting;Static Standing;Dynamic Standing Dynamic Sitting Balance: Stand By Assistance Static Standing Balance: Contact Guard Assistance Dynamic Standing Balance: Minimal Assistance Activity Tolerance: Sitting Activity;Standing Activity Sitting Activity: Up in chair for ADL adequate for seated ADL Standing Activity: Standing at sink for ADL, toileting/toilet transfers Standing Activity Tolerance (in minutes): 4 Please see discipline specific clinical documentation flowsheet for complete details for this therapy evaluation/treatment. SIGNATURE: ERIC Bales/Carroll PATIENT NAME: Elias Shah DATE: August 24, 2019 TIME: 10:46 AM Normal [facility] THERAPY NT HNO ID: [id number] Author: Nohemi (PtSachin Meehan Service: Physical Therapy Author Type: Physical Therapist Type: Therapy (PT/OT/Speech/Resp) Filed: 08/24/2019 4:03 PM Note Text: Physical Therapy Evaluation SERVICE DATE: 08/24/2019 SERVICE TIME: 829 to 0855 ROOM: [id number] Recommended Discharge Disposition: Acute Rehab Justification For Post Acute Needs: Anticipate patient will tolerate 3 hours of daily therapy at the time of admission to post-acute setting;Cognition intact;Good sitting tolerance;Motivated;W illing to participate PT Recommendations to Nursing: Transfer to/from chair;OOB for Meals;With assist of 1 person;Sit at edge of bed Device: Wheeled Walker PT 6 Clicks Score: 15 Precautions/Activity Restrictions: Sternal;Lines/Tubes/D rains Precaution/Activity Restriction Comments: sternal precautions Isolation Type: None ASSESSMENT : This patient was admitted for SOB, GI complications, has the past medical history of anemia, S/p open heart surgery 5 weeks ago (sternal precautions), impacting current functional level, as well as the social factors complicating the discharge of stairs, ambulating around home. This patient is below baseline functioning of ambulating using wheeled walker, dressing, and will benefit from continued skilled therapy in the hospital for treatment of the following body systems/impairments: neuromuscular, musculoskeletal, cardiopulmonary (strength, endurance, balance, safety awareness, gait, transfers) Patient is motivated to improve his functional endurance. Patient reports dizziness upon exertion, showing pattern of low HGB. Was only able to tolerate 1 minute of standing tolerance exercise before fatiguing. Discussed acute rehab vs home with patient and he is agreeable to participate in acute rehab to improve his functional endurance and address his current impairments. Patient will benefit from continued skilled therapy to address listed impairments and maximize independence. Recommend Acute Rehab post discharge, given patient's current functional status below baseline. Patient Disposition at Start of Session: Supine in Bed;Call Slade in Reach Patient Disposition at End of Session: Supine in Bed;Call Slade in Reach Tolerance Limited By Fatigue Patient /Caregiver Goals: Walk;Go To Rehab Goals for Plan of Care: Able to perform HEP with: Supervision Rolling with: Stand By Assistance Transfer supine to/from sit with: Stand By Assistance Transfer sit to/from stand with: Contact Guard Assistance Ambulate with: Contact Guard Assistance Distance: 10' Device: Wheeled Walker Rehab Potential: Good PLAN: Treatment Frequency (times per week): 5(2-5) Current admission Treatment Interventions: Education;Self Care / Home Management;Energy Conservation Training;Strengthenin g;Functional Mobility Training;Balance Training;Neuromuscula r Re-education Plan of Care developed with: Patient TREATMENT INTERVENTIONS: Therapy Diagnosis: Reduced mobility-other;Decrea sed activities of daily living (ADL);Muscle Weakness (generalized);Unstead iness on feet;Difficulty walking-musculoskelet al;Abnormalities of gait and mobility-other Interventions Provided: Evaluation;Therapeuti c Activity (81303) $ Evaluation-Moderate (50629) Billed Units: 1 unit History and examination of body systems see assessment section above. This patient?s clinical presentation is evolving. The patient required a moderate complexity evaluation. Therapeutic Activity (44268) Treatment Minutes: 9 1 unit Skilled Intervention(s): Instruction in sit to stand technique with proper hand placement and body positioning at edge of bed/chair Instruction in stand to sit technique with lower extremities touching chair/bed, with proper hand placement. Instruction in sit to and from stand technique with proper hand placement and body positioning at edge of bed/chair Education with sternal precautions and patient able to recall, demo good understanding. Patient educated on roll of therapy in acute rehab to maximize independence, patient agreeable to PT recommendation. Performed static standing tolerance for 1 minute before fatiguing. Patient completed general strengthening exercises bilateral lower extremity, sitting in chair (ankle pump, long arc quad, marching, hip adductor squeeze) x 10-15 reps, no assist. Patient needing multiple rest breaks throughout session with emphasis on proper breathing technique. Reports slight pulling with LE exercises, but tolerable. Total Timed Code Treatment Minutes: 9 Total Treatment Time (minutes): 25 SUBJECTIVE: Current Hospital Course: Chart reviewed; SOB/dizziness, GI complications Surgery/Procedure Date: 08/22/2019 Esophagogastroduodeno scopy (EGD) - Results show normal Reason for Physical Therapy Consult : eval and treat Relevant Past Medical History: aortic stenosis, anemia, afib, Aortic Valve replacement (sternal precauts). Patient Report: Patient content and agreeable to therapy. Patient wiling to participate and agreeable to acute rehab to maximize independence I would like to get better. Home Environment Patient Lives With: Family(sister) Assistance Available: 24 Hour Entry To Home: Stairs;With Rail Number Of Stairs Into Home: 3 Number Of Stairs To Bed/Bath: ranch home/one level Tub/Shower Type: tub/shower Laundry: sister completes Equipment Owned: Wheeled Walker;Grab Bars-Shower;Grab Bars-Toilet;Elevated Toilet Seat Prior Functional Level: Within Functional Limits Prior Functional Level Comments: Patient ambulates using wheeled walker and does own ADL. Sister does home mangement and drives. OBJECTIVE: CURRENT FUNCTIONAL STATUS: Current Functional Mobility Assist Level Additional Information Rolling Supine to Sit Contact Guard Assistance Sit to Supine Scooting Sit to Stand Moderate Assistance Stand to Sit Minimal Assistance Bed to Chair Minimal Assistance Bed To Chair Transfer Type: Stand Pivot Bed To Chair Transfer Equipment: Wheeled Walker Toilet/Commode Gait Minimal Assistance Gait Device: Wheeled Walker Gait Distance (feet): 2 Stairs Curb Step Car Transfer General Gait Deviations: Suzan decreased;Step length decreased;Non-functio nal gait speed Range of Motion: WFL Except;ROM Limitation Comments ROM Limitation Comments: Upper extremities shoulder flex limited to 90 degrees due to sternal precautions Strength: WFL Except;Lower Extremity Comments;Strength Limitation Comments Strength Limitation Comments: No MMT of upper extremities due to sternal precautions Right Lower Extremity Strength Comments: WFL Left Lower Extremity Strength Comments: 3+/5 grossly Activity Tolerance: Standing Activity Standing Activity: Static standing tolerance with upper extremitiy support Standing Activity Tolerance (in minutes): 1 JH-HLM: 5: Standing (1 or more minutes) Please see discipline specific clinical documentation flowsheet for complete details for this therapy evaluation/treatment. SIGNATURE: ELSI Jewell PATIENT NAME: Elias Shah DATE: August 24, 2019 TIME: 9:13 AM Patient care delivered with direct supervision of PT Clinical Instructor in accordance with treatment plan. I reviewed and agree with the documentation corresponding to this therapy visit. SIGNATURE: Nohemi Meehan PT DATE: August 24, 2019 TIME: 4:01 PM [facility] ANES Namita 08-23-2019 ANES POST HNO ID: [id number] Author: Alli Lamb Service: Anesthesiology Author Type: Physician Type: Anesthesia PostOp Filed: 08/23/2019 12:36 PM Note Text: POST ANESTHESIA EVALUATION NOTE SERVICE DATE: 08/23/2019 SERVICE TIME: 123 : 1938 Vitals: 08/22/19 2024 08/23/19 0255 08/23/19 0812 08/23/19 1021 Temp: 36.7 ?C (98.1 ?F) 37 ?C (98.6 ?F) 36.7 ?C (98.1 ?F) 36.7 ?C (98.1 ?F) 08/23/19 0942 08/23/19 1021 08/23/19 1207 08/23/19 1233 BP: 168/80 169/67 141/67 161/76 08/23/19 0942 08/23/19 1021 08/23/19 1207 08/23/19 1233 Pulse: (!) 58 (!) 56 62 (!) 56 08/23/19 0942 08/23/19 1021 08/23/19 1207 08/23/19 1233 Resp: 18 16 16 16 08/23/19 0812 08/23/19 1021 08/23/19 1207 08/23/19 1233 SpO2: 99% 100% 100% 100% Validated Vital Signs: Yes POST ANES STATUS: No apparent anesthetic complications. The patient is appropriately hydrated with stable respiratory and cardiovascular status. Patient has safe and adequate airway control. The patient has appropriate pain relief and no significant post operative nausea or vomiting. The patient has achieved baseline mental status. Intra-Operative Events: No Significant Anesthesia Events Further assessment by Anesthesia Service: None Other Remarks: Per report, pt met criteria for discharge from PACU SIGNATURE: Alli Lamb MD PATIENT NAME: Elias Shah DATE: August 23, 2019 TIME: 12:36 PM PAGER/CONTACT #: Kati [facility] ANES PREOPon 08-23-2019 ANES PREOP HNO ID: [id number] Author: Alli Lamb Service: Anesthesiology Author Type: Physician Type: Anesthesia PreOp Filed: 08/23/2019 11:38 AM Note Text: ANESTHESIOLOGY DAY OF SURGERY NOTE SERVICE DATE: 08/23/2019 SERVICE TIME: 1114 : 1940 Procedure(s) (LRB): COLONOSCOPY (Left) Surgeon(s): Zora Peter Estimated body mass index is 27 kg/m? as calculated from the following: Height as of this encounter: 182.9 cm (6'). Weight as of this encounter: 90.3 kg (199 lb 1.2 oz). Most recent hematocrit and potassium results: Hematocrit (I-STAT) 25.0 08/22/2019 Potassium (I-STAT) 3.6 08/22/2019 ANES DOS/PREOP NOTE: Vitals: 08/23/19 0810 08/23/19 0812 08/23/19 0942 08/23/19 1021 BP: 189/72 168/80 169/67 Pulse: (!) 48 (!) 59 (!) 58 (!) 56 Resp: 18 18 16 Temp: 36.7 ?C (98.1 ?F) 36.7 ?C (98.1 ?F) TempSrc: Oral Oral SpO2: 99% 100% Weight: Height: ACTIVE PROBLEM LIST Abnormal Electrocardiogram (Ecg) (Ekg) Anemia, Unspecified Aortic Valve Stenosis Atrial Fibrillation With Rapid Ventricular Response (Hcc) Mauro (Acute Kidney Injury) (Hcc) Acute Metabolic Encephalopathy Vitamin D Deficiency Small Bowel Obstruction (Hcc) Paroxysmal Atrial Fibrillation (Hcc) Lbbb (Left Bundle Branch Block) Incarcerated Umbilical Hernia Declining Functional Status Essential Hypertension Hyperlipidemia Impaired Cognition Aortic Stenosis S/P Cabg X 2 Acute Encephalopathy Coronary Artery Disease of [place] Artery of [place] Heart With Stable Angina Pectoris (Hcc) S/P Avr Left Bundle Branch Block Hypertension Coronary Artery Disease Atrial Fibrillation (Hcc) Anemia Chest Pain Shortness of Breath GI Bleed PAST MEDICAL HISTORY Diagnosis Date - Acute kidney injury (HCC) - Acute metabolic encephalopathy - Anemia - Aortic stenosis - Atrial fibrillation (HCC) - Bowel obstruction (HCC) - Coronary artery disease - Hyperlipidemia - Hypertension - Left bundle branch block - Mitral valve annular calcification - Prolonged QT interval - S/P AVR 07/04/[address] [facility] Trifecta pericardial prosthesis at [facility] by Dr. 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 Rivers - Vitamin D deficiency PAST SURGICAL HISTORY Procedure Laterality Date - ATRIAL APPENDAGE LIGATION 07/04/2019 35 mm AtriCure clip at [facility] by Dr. Rivers - CABG (2) VEIN GRAFTS AND ARTERIAL GRAFT(S 07/04/2019 at [facility] by Dr. Rivers - REPAIR UMBILICAL HERNIA 12/04/2018 after bowel perforation done at [facility] Dr. Young - REPLAC AORT VALV PROSTH VALV 07/04/[address] Crist[employer]ian Trifecta pericardial prosthesis at [facility] by Dr. Rivers FAMILY HISTORY Problem Relation Age of Onset - Osteoporosis Mother - Heart Mother - Cancer Father lung - Colon Cancer No Family History Social History: Social History Tobacco Use - Smoking status: Former Smoker Packs/day: 1.00 Years: 5.00 Pack years: 5.00 Last attempt to quit: 11/23/1954 Years since quittin.7 - Smokeless tobacco: Never Used Substance Use Topics - Alcohol use: Not Currently Comment: social - Drug use: Never No current facility-administered medications on file prior to encounter. Current Outpatient Medications on File Prior to Encounter: losartan (COZAAR) 50 mg tablet Take 50 mg by mouth twice daily. Ferrous Fumarate-Iron Ps Cmplx 162-115.2 (106) mg cap Take 1 tablet by mouth once daily. ascorbic acid, vitamin C, (VITAMIN C) 500 mg tablet Take 500 mg by mouth once daily. furosemide (LASIX) 20 mg tablet Take 1 tablet by mouth once daily for 7 days. metoprolol tartrate, short acting, (LOPRESSOR) 25 mg tablet Take 2 tablets by mouth twice daily. (Patient taking differently: Take 25 mg by mouth twice daily. ) guaifen/dextromethorp coronado/pe (GUAIFEN DM ORAL) Take by mouth. aspirin 81 mg chewable tablet Take 2 tablets by mouth once daily. atorvastatin (LIPITOR) 40 mg tablet Take 1 tablet by mouth daily at bedtime. polyethylene glycol 3350 (MIRALAX, GLYCOLAX) 17 gram packet Take 1 Packet by mouth once daily as needed. tamsulosin ER (FLOMAX) 0.4 mg cap Take 0.4 mg by mouth once daily. oxyCODONE ir (OXYIR) 5 mg capsule Take 5 mg by mouth every 6 hours as needed. acetaminophen (TYLENOL) 325 mg tablet Take 2 tablets by mouth every 4 hours as needed. Current Facility-Administered Medications Medication Dose Route Frequency Provider Last Rate Last Dose - [MAR Hold due to Transfer] morphine 4 mg injection 4 mg INTRAVENOUS q 4 H PRN Aijaz Brittani 4 mg at 08/21/19 0937 - [MAR Hold due to Transfer] HYDROcodone 5 mg - acetaminophen 325 mg tablet (NORCO) 1 tablet ORAL q 4 H PRN Aijaz Brittani 1 tablet at 08/21/19 2018 - [MAR Hold due to Transfer] acetaminophen 650 mg tab(s) (TYLENOL) 650 mg ORAL q 4 H PRN Aijaz Brittani 650 mg at 08/21/19 0113 - [MAR Hold due to Transfer] atorvastatin 40 mg tab(s) (LIPITOR) 40 mg ORAL AT BEDTIME Aijaz Brittani 40 mg at 08/22/19 2142 - [MAR Hold due to Transfer] losartan 50 mg tab(s) (COZAAR) 50 mg ORAL BID Aijaz Brittani 50 mg at 08/23/19 0816 - [MAR Hold due to Transfer] metoprolol tartrate (short acting) 25 mg tab(s) (LOPRESSOR) 25 mg ORAL BID Aijaz Brittani 25 mg at 08/22/19 2142 - [MAR Hold due to Transfer] tamsulosin ER 0.4 mg cap(s) (FLOMAX) 0.4 mg ORAL DAILY Aijaz Brittani 0.4 mg at 08/22/19 1631 - [MAR Hold due to Transfer] NaCl 0.9% 3-5 mL 3-5 mL INTRAVENOUS q 12 H Aijaz Brittani 3 mL at 08/23/19 0817 - [MAR Hold due to Transfer] NaCl 0.9% 2-10 mL 2-10 mL INTRAVENOUS q 12 H Aijaz Brittani 10 mL at 08/23/19 08 - [MAR Hold due to Transfer] pantoprazole 40 mg injection (PROTONIX) 40 mg INTRAVENOUS q 12 H Aijaz Brittani 40 mg at 08/23/19816 Followed by - [MAR Hold due to Transfer] pantoprazole 40 mg injection (PROTONIX) 40 mg INTRAVENOUS DAILY (6 AM) Aijaz Brittani Allergies: ALLERGIES No Known Allergies DOS EXAM: Adequate NPO status: Yes Anesthetic risks, benefits, alternatives, personnel and consent discussed: Yes Patient agrees to proceed: Yes Previous Anesthesia: No history of adverse event. Airway Assessment: MP 2; Neck ROM: Full ROM without neurologic symptoms; Airway Evaluation: No significant abnormalities Symptoms of Sleep Apnea: None Dentition: Dentures: both Edentulous Additional Physical Exam: Lungs: Lungs clear to auscultation. Good diaphragmatic excursion. Cardiac: normal S1 and S2; no rubs, no murmurs, and no gallops Additional Pertinent Findings: N/A Blood Products: Not anticipated for this procedure. Anesthetic Plan: MAC with Sedation and Standard ASA Monitors Pain Management Plan: Parenteral or Oral ASA Class: 3 Other Medical Problems: None Chronic Beta Leyda medication administered within 24 hours: Yes I have interviewed and examined the patient. I have reviewed the medical record and/or the pre-anesthesia evaluation, pertinent labs, and test results. Significant changes in the patient's condition since the History and Physical, not otherwise documented in primary service progress notes: No This contains updated information obtained within 48 hours of Surgery/Procedure. SIGNATURE: Alli Lamb MD PATIENT NAME: Elias Shah DATE: August 23, 2019 TIME: 11:36 AM CSN: [id number] Normal [facility] CASE MGT INGARRY Jones 2018 CASE MGT INGARRY HARTMAN HNO ID: [id number] Author: Barbara (Rn) AGUSTO Roque Service: Care Management Author Type: Registered Nurse Type: Care Mgt Initial Assessment Filed: 08/23/2019 4:34 PM Note Text: CARE MANAGEMENT: ASSESSMENT AND DISCHARGE PLAN SERVICE DATE: 08/23/2019 SERVICE TIME: 4:21 PM PRIMARY CARE PHYSICIAN: Mal Main MD ADMISSION STATUS: Inpatient Needs Prior to Discharge: Discharge Transportation;OT/PT Evaluation MEDICAL: Patient/Representativ e Stated Goals: To return home to life as it was Health Insurance: MEDICARE A AND B [employer] Indemnity Health Issues Impacting Discharge Plan: None Last Discharge Date: 07/13/19 Is this Within the Past 30 days? No Advance Directive: Current Advance Directive: Health Care Power of Horse Buyer In Chart: No Lobster Fisherman Attempted to Assist with AD Completion: Yes Action: Patient Unwilling Health Literacy: 1. How often do you need to have someone help you when you read instructions, pamphlets, or other written material from your doctor or pharmacy? Sometimes - 3 2. How confident are you filling out medical forms by yourself? Somewhat - 3 If Patient scores > 3 on either question, the following interventions were put into place: Teach back methods employed to ensure comprehension, Use concrete and specific phrases, avoid medical jargon and Gave Patient the opportunity to ask questions FUNCTIONAL AND COGNITIVE/BEHAVIORAL PRIOR TO ADMISSION: Baseline Mental Status: Alert AND Oriented, Person, Place , Time and Situation Functional Status: Needs Assistance Does Patient Currently Receive Any Community Services or Home Care? Unknown, pt does not know Equipment Prior to Admission: Walker Has the Patient Been in a Alf Facility in the Past 30 days? Unknown SOCIAL: Living Arrangement: Home Lives With: Helena mccormack Financial Resources: Retired Primary Contact: Extended Emergency Contact Information Primary Emergency Contact: Helena Enriquez Relation: Sister Supportive: Yes Other Important Patient Contacts: None Caregiver Assessment: Caregiver is ready, willing and able to meet the patient's needs as recommended by the inter-professional team? Yes Patient's transition needs and plan for meeting these needs: Hopeful to return home Does the patient have an acute stroke diagnosis, or has the patient had a stroke during this admission? No Medication Adherence: I am convinced of the importance of my prescription medication: Agree completely - 0 I worry that my prescription medication will do more harm than good to me Disagree completely - 0 I feel financially burdened by my [id number] expenses for my prescription medication: Disagree completely - 0 Patient is categorized as low risk < 2 Are you interested in bedside delivery of your medications? Yes Food Concerns: In the Last Month, Have You had Trouble Getting Food? No trouble getting food During the Last Month, Have You Worried Whether Your Food Would Run Out Before You Had Enough Money to Buy More? No Is the Patient Psychosocially Complex? No ASSESSMENT AND PLAN: Medical Needs: 2 or more chronic diseases Psychosocial Needs: None FREEDOM OF CHOICE EXPLAINED: Yes Discussed home care and he is willing, stating nurse is coming out now. Pt has no idea who the home care agency is that is coming. TC to Helena mccormack POTENTIAL TRANSITION PLANS Home Home Care Pt is from home where he lives with his Helena mccormack. 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 +PCP, +RX, +DME. TCVM to Helena tipton trying to determine the home care agency that follows pt. Pt does not know. Following. SIGNATURE: Barbara Roque RN PATIENT NAME: Elias Shah DATE: August 23, 2019 TIME: 4:20 PM PAGER/CONTACT #: [phone] [facility] OPERATIVE NOon 08-23-2019 OPERATIVE NO HNO ID: [id number] Author: Zora Peter Service: Gastroenterology Author Type: Physician Type: Operative Report Filed: 08/23/2019 12:03 PM Note Text: OPERATIVE/PROCEDURE REPORT LOG ID: [id number] Surgery/Procedure Date: 08/23/2019 Incision/Procedure Start Time: 11:43 AM Incision Close/Procedure End Time: 11:58 AM Surgeon(s)/Procedural ist(s) and Cork Pressing Machine Operator(s): Surgeon(s) and Role: * Zora Peter - Primary No Additional Staff Procedure(s): Colonoscopy with polypectomy Anesthesia: Monitored Anesthesia Care Brief History: 79/M, admitted with c/o- passing melenic stools with low HANDH. EGD was done yesterday- was normal. For colonoscopy to r/o- lower GI lesion for GI bleed Procedure Details: The patient was placed in the left lateral decubitus position. A digital rectal exam was performed and this was normal. The Olympus colonoscope was introduced into the rectum and advanced to the cecum. The procedure was not technically difficult. The cecum was identified by the appendiceal orifice and the ileocecal valve. The bowel preparation was good and the total withdrawal time was 8 minutes. The scope was then slowly withdrawn and the mucosal folds examined in detail. Cecum- Polyps- none Terminal ileum- normal Ascending colon- Polyps- 5 mm polyp removed with cold snare; Hepatic flexure- Polyps- none; Transverse colon- Polyps- none; Splenic flexure- Polyps- none Descending colon- Polyps- none; Sigmoid colon- Polyps- none; Rectum- Polyps- none; Retroflexion- hemorrhoids moderate severe diverticulosis Pre-Op/Pre-Procedure Diagnosis: GI bleed Post-Op/Post-Procedur e Diagnosis: Ascending colon polyp Severe diverticulosis (L>R) Otherwise unremarkable colonoscopy and terminal ileoscopy Specimens: See above EBL: None Complications: None Recommendations: Continue current medications Follow up pathology Follow up in GI clinic No qualified resident/fellow was available. Zora Peter MD SIGNATURE: Zora Peter MD PATIENT NAME: Elias Shah DATE: August 23, 2019 TIME: 12:00 PM PAGER/CONTACT #: [phone] [facility] OPERATIVE NO HNO ID: [id number] Author: Zora Peter Service: Gastroenterology Author Type: Physician Type: Operative Report Filed: 08/23/2019 12:02 PM Note Text: OPERATIVE/PROCEDURE REPORT LOG ID: [id number] Surgery/Procedure Date: 08/23/2019 Incision/Procedure Start Time: 11:43 AM Incision Close/Procedure End Time: 11:58 AM Surgeon(s)/Procedural ist(s) and Cork Pressing Machine Operator(s): Surgeon(s) and Role: * Zora Peter - Primary No Additional Staff Procedure(s): Colonoscopy with polypectomy Anesthesia: Monitored Anesthesia Care Brief History: 79/M, admitted with c/o- passing melenic stools with low HANDH. EGD was done yesterday- was normal. For colonoscopy to r/o- lower GI lesion for GI bleed Procedure Details: The patient was placed in the left lateral decubitus position. A digital rectal exam was performed and this was normal. The Olympus colonoscope was introduced into the rectum and advanced to the cecum. The procedure was not technically difficult. The cecum was identified by the appendiceal orifice and the ileocecal valve. The bowel preparation was good and the total withdrawal time was 8 minutes. The scope was then slowly withdrawn and the mucosal folds examined in detail. Cecum- Polyps- none Terminal ileum- normal Ascending colon- Polyps- 5 mm polyp removed with cold snare; Hepatic flexure- Polyps- none; Transverse colon- Polyps- none; Splenic flexure- Polyps- none Descending colon- Polyps- none; Sigmoid colon- Polyps- none; Rectum- Polyps- none; Retroflexion- hemorrhoids moderate severe diverticulosis Pre-Op/Pre-Procedure Diagnosis: GI bleed Post-Op/Post-Procedur e Diagnosis: Ascending colon polyp Severe diverticulosis (L>R) Otherwise unremarkable colonoscopy and terminal ileoscopy Specimens: See above EBL: None Complications: None Recommendations: Continue current medications Follow up pathology Follow up in GI clinic No qualified resident/fellow was available. Zora Peter MD SIGNATURE: Zora Peter MD PATIENT NAME: Elias Shah DATE: August 23, 2019 TIME: 12:00 PM PAGER/CONTACT #: [phone] [facility] PROGRESSon 08-23-2019 PROGRESS HNO ID: [id number] Author: Roger Han Service: Hospital Medicine Author Type: Physician Type: Progress Notes Filed: 08/23/2019 3:44 PM Note Text: DEPARTMENT OF HOSPITAL MEDICINE PROGRESS NOTE SERVICE DATE: 08/23/2019 SERVICE TIME: 3:37 PM Hospital Medicine/Primary Attending: Roger Han MD NIGHT AND WEEKEND COVERAGE: After 7pm please page [phone] CHIEF COMPLAINT: Shortness of breath SUBJECTIVE: Patient states he has been short of breath on exertion. He has not had difficulty sleeping. He denies any chest pain with exertion. He is about one month post bypass and aortic valve replacement. OBJECTIVE: PHYSICAL EXAM: BP 151/54 Pulse 67 Temp (Src) 98.8 (Temporal Artery) Resp 18 Ht 6' 0 (1.83m) Wt 199 lb 1.2 oz (90.3kg) SpO2 97% BMI 26.99 kg/(m2). O2 Therapy: Room Air General - AANDOx3, NAD, Calm CV - RRR S1 S2, No M/R/G RESP - CTA B/L No wheezes, ronchi, rales ABD - soft, NT, ND +BS EXT - no gross joint deformity, no clubbing, cyanosis, edema MEDICATIONS: Current Facility-Administered Medications Medication Dose Route Frequency - acetaminophen 650 mg tab(s) (TYLENOL) 650 mg ORAL q 4 H PRN - atorvastatin 40 mg tab(s) (LIPITOR) 40 mg ORAL AT BEDTIME - losartan 50 mg tab(s) (COZAAR) 50 mg ORAL BID - metoprolol tartrate (short acting) 25 mg tab(s) (LOPRESSOR) 25 mg ORAL BID - tamsulosin ER 0.4 mg cap(s) (FLOMAX) 0.4 mg ORAL DAILY - NaCl 0.9% 3-5 mL 3-5 mL INTRAVENOUS q 12 H - NaCl 0.9% 2-10 mL 2-10 mL INTRAVENOUS q 12 H - pantoprazole 40 mg injection (PROTONIX) 40 mg INTRAVENOUS q 12 H Followed by - [START ON 08/24/2019] pantoprazole 40 mg injection (PROTONIX) 40 mg INTRAVENOUS DAILY (6 AM) - morphine 4 mg injection 4 mg INTRAVENOUS q 4 H PRN - HYDROcodone 5 mg - acetaminophen 325 mg tablet (NORCO) 1 tablet ORAL q 4 H PRN - ondansetron (PF) 4 mg injection (ZOFRAN) 4 mg INTRAVENOUS PRN - ferrous sulfate 325 mg tab(s) 325 mg ORAL DAILY DATA: Diagnostic tests reviewed for today's visit: CBC: Recent Labs 08/22/19 1750 HB 7.9* Coags: Recent Labs 08/22/19 1750 INR 1.08 Assessment/Plan Principal Problem: ??Anemia due to acute blood loss POA: Yes ?Assessment AND?Plan: due to UGI bleed. ?EGD was negative. Colonoscopy showed one polyp and extensive diverticulosis. Continue on Protonix. Add iron supplement. ? Active Problems: ??GI bleed POA: Yes ?Assessment AND?Plan: Etiology is probably small intestinal bleed. Continue on proton pump inhibitor. ? ??Chest pain POA: Yes ?Assessment AND?Plan: troponins negative ? ??Shortness of breath POA: Yes ?Assessment AND?Plan: due to anemia. ?Recheck chest x-ray to make sure he has developed no diastolic heart failure. Last echo was reviewed and shows good systolic function. ? ??Essential hypertension POA: Yes ?Assessment AND?Plan: cont with home meds. ?Hyperlipidemia POA: Yes ?Assessment AND?Plan: cont with rx. ? ??S/P AVR POA: Yes ?Assessment AND?Plan: ?Left bundle branch block POA: Yes ?Assessment AND?Plan: chronic. ? ??Coronary artery disease POA: Yes ?Assessment AND?Plan: S/P 2 vessel bypass. ?Asa held due to bleeding, we'll restart this now.. Cont with all other medications. ? ??Atrial fibrillation (HCC) POA: Yes ?Assessment AND?Plan: previously was on amiodarone and bb. ??Now just bb and this was lowered recently due to bradycardia. ?Monitor on tele. Patient has left atrial clip to exclude the left atrial appendage. ? ??Hypokalemia. ? resolved VTE Prophylaxis: Pneumatic Compression Device Disposition: Home in a.m. if patient able to ambulate sufficiently. Plan of care discussed with: Patient SIGNATURE: Roger Han MD PATIENT NAME: Elias Shah DATE: August 23, 2019 TIME: 3:37 PM PAGER/CONTACT #: [phone] [facility] PT EDon 08-23-2019 PT ED HNO ID: [id number] Author: Nichole Boo RN Service: Nursing Author Type: Registered Nurse Type: Patient Education Filed: 08/23/2019 12:10 PM Note Text: POST OP LEARNING RESPONSE INSTRUCTION PROVIDED TO: Patient and Family member METHOD OF INSTRUCTION: Individual instruction Verbal instruction PATIENT / FAMILY RESPONSE: Verbalizes understanding of: POST-PROCEDURE INSTRUCTIONS-Correct actions to take to reduce post procedure complications FOLLOW-UP PLAN: Complete - No need for follow-up Patient instructed to call with any further issues Follow-up with Primary Care SUPPLEMENTAL MATERIAL: None REFERRAL (RECOMMENDATION): None Electronically Signed By: Nichole Boo RN In Department: [place] [facility] PT ED HNO ID: [id number] Author: Ina GusmanRn) AGUSTO Ryan Service: Nursing Author Type: Registered Nurse Type: Patient Education Filed: 08/23/2019 10:19 AM Note Text: PRE OP LEARNING ASSESSMENT PROCEDURE/SURGERY: GI PROCEDURES: Colonoscopy READINESS TO LEARN COGNITIVE ABILITY: Alert and oriented MOTIVATION TO LEARN: Interested FAMILY SUPPORT: None - Unavailable/disintere sted PATIENT LEARNS BEST BY: Individual Instruction FACTORS AFFECTING LEARNING: None PHYSICAL LIMITATIONS AFFECTING LEARNING: None Electronically Signed By: Ina Ryan RN In Department: [facility] ANES Namita 08-22-2019 ANES POST HNO ID: [id number] Author: Marlon Womack Service: Anesthesiology Author Type: Physician Type: Anesthesia PostOp Filed: 08/22/2019 4:50 PM Note Text: POST ANESTHESIA EVALUATION NOTE SERVICE DATE: 08/22/2019 SERVICE TIME: 4:49 PM : 1940 Vitals: 08/22/19 0130 08/22/19 0813 08/22/19 1107 08/22/19 1616 Temp: 36.4 ?C (97.5 ?F) 36.9 ?C (98.4 ?F) 36.8 ?C (98.2 ?F) 36.8 ?C (98.2 ?F) 08/22/19 1313 08/22/19 1354 08/22/19 1436 08/22/19 1616 BP: 165/76 150/72 141/63 178/75 08/22/19 1313 08/22/19 1354 08/22/19 1436 08/22/19 1616 Pulse: 64 64 (!) 53 64 08/22/19 1313 08/22/19 1354 08/22/19 1436 08/22/19 1616 Resp: 16 18 16 18 08/22/19 1313 08/22/19 1354 08/22/19 1436 08/22/19 1616 SpO2: 100% 98% 97% 98% Validated Vital Signs: Yes POST ANES STATUS: No apparent anesthetic complications. The patient is appropriately hydrated with stable respiratory and cardiovascular status. Patient has safe and adequate airway control. The patient has appropriate pain relief and no significant post operative nausea or vomiting. The patient has achieved baseline mental status. Intra-Operative Events: No Significant Anesthesia Events Further assessment by Anesthesia Service: None Other Remarks: SIGNATURE: Marlon Womack MD PATIENT NAME: Elias Shah DATE: August 22, 2019 TIME: 4:49 PM PAGER/CONTACT #: Kati [facility] ANES PREOPon 08-22-2019 ANES PREOP HNO ID: [id number] Author: Marlon Womack Service: Anesthesiology Author Type: Physician Type: Anesthesia PreOp Filed: 08/22/2019 12:43 PM Note Text: ANESTHESIOLOGY DAY OF SURGERY NOTE SERVICE DATE: 08/22/2019 SERVICE TIME: 12:40 PM : 1940 Procedure(s) (LRB): EGD (Left) Surgeon(s): Zora Peter Estimated body mass index is 26.97 kg/m? as calculated from the following: Height as of this encounter: 182.9 cm (6'). Weight as of this encounter: 90.2 kg (198 lb 13.7 oz). Most recent hematocrit and potassium results: Hematocrit (I-STAT) 25.0 08/22/2019 Potassium (I-STAT) 3.6 08/22/2019 ANES DOS/PREOP NOTE: Vitals: 08/22/19 0130 08/22/19 0600 08/22/19 0813 08/22/19 1107 BP: 140/55 159/66 158/65 Pulse: 62 64 (!) 55 Resp: 16 16 18 Temp: 36.4 ?C (97.5 ?F) 36.9 ?C (98.4 ?F) 36.8 ?C (98.2 ?F) TempSrc: Oral Oral Oral SpO2: 100% 100% 99% Weight: 90.2 kg (198 lb 13.7 oz) Height: ACTIVE PROBLEM LIST Abnormal Electrocardiogram (Ecg) (Ekg) Anemia, Unspecified Aortic Valve Stenosis Atrial Fibrillation With Rapid Ventricular Response (Hcc) Mauro (Acute Kidney Injury) (Hcc) Acute Metabolic Encephalopathy Vitamin D Deficiency Small Bowel Obstruction (Hcc) Paroxysmal Atrial Fibrillation (Hcc) Lbbb (Left Bundle Branch Block) Incarcerated Umbilical Hernia Declining Functional Status Essential Hypertension Hyperlipidemia Impaired Cognition Aortic Stenosis S/P Cabg X 2 Acute Encephalopathy Coronary Artery Disease of [place] Artery of [place] Heart With Stable Angina Pectoris (Hcc) S/P Avr Left Bundle Branch Block Hypertension Coronary Artery Disease Atrial Fibrillation (Hcc) Anemia Chest Pain Shortness of Breath GI Bleed PAST MEDICAL HISTORY Diagnosis Date - Acute kidney injury (HCC) - Acute metabolic encephalopathy - Anemia - Aortic stenosis - Atrial fibrillation (HCC) - Bowel obstruction (HCC) - Coronary artery disease - Hyperlipidemia - Hypertension - Left bundle branch block - Mitral valve annular calcification - Prolonged QT interval - S/P AVR 07/04/[address] [facility]ian Trifecta pericardial prosthesis at [facility] by Dr. 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 Rivers - Vitamin D deficiency PAST SURGICAL HISTORY Procedure Laterality Date - ATRIAL APPENDAGE LIGATION 07/04/2019 35 mm AtriCure clip at [facility] by Dr. Rivers - CABG (2) VEIN GRAFTS AND ARTERIAL GRAFT(S 07/04/2019 at [facility] by Dr. Rivers - REPAIR UMBILICAL HERNIA 12/04/2018 after bowel perforation done at [facility] Dr. Young - REPLAC AORT VALV PROSTH VALV 07/04/[address] Cristhian Trifecta pericardial prosthesis at [facility] by Dr. Rivers FAMILY HISTORY Problem Relation Age of Onset - Osteoporosis Mother - Heart Mother - Cancer Father lung Social History: Social History Tobacco Use - Smoking status: Former Smoker Packs/day: 1.00 Years: 5.00 Pack years: 5.00 Last attempt to quit: 11/23/1954 Years since quittin.7 - Smokeless tobacco: Never Used Substance Use Topics - Alcohol use: Not Currently Comment: social - Drug use: Never No current facility-administered medications on file prior to encounter. Current Outpatient Medications on File Prior to Encounter: losartan (COZAAR) 50 mg tablet Take 50 mg by mouth twice daily. Ferrous Fumarate-Iron Ps Cmplx 162-115.2 (106) mg cap Take 1 tablet by mouth once daily. ascorbic acid, vitamin C, (VITAMIN C) 500 mg tablet Take 500 mg by mouth once daily. furosemide (LASIX) 20 mg tablet Take 1 tablet by mouth once daily for 7 days. metoprolol tartrate, short acting, (LOPRESSOR) 25 mg tablet Take 2 tablets by mouth twice daily. (Patient taking differently: Take 25 mg by mouth twice daily. ) guaifen/dextromethorp coronado/pe (GUAIFEN DM ORAL) Take by mouth. aspirin 81 mg chewable tablet Take 2 tablets by mouth once daily. atorvastatin (LIPITOR) 40 mg tablet Take 1 tablet by mouth daily at bedtime. polyethylene glycol 3350 (MIRALAX, GLYCOLAX) 17 gram packet Take 1 Packet by mouth once daily as needed. tamsulosin ER (FLOMAX) 0.4 mg cap Take 0.4 mg by mouth once daily. oxyCODONE ir (OXYIR) 5 mg capsule Take 5 mg by mouth every 6 hours as needed. acetaminophen (TYLENOL) 325 mg tablet Take 2 tablets by mouth every 4 hours as needed. Current Facility-Administered Medications Medication Dose Route Frequency Provider Last Rate Last Dose - [MAR Hold due to Transfer] morphine 4 mg injection 4 mg INTRAVENOUS q 4 H PRN Roger Han 4 mg at 08/21/19 0937 - [MAR Hold due to Transfer] HYDROcodone 5 mg - acetaminophen 325 mg tablet (NORCO) 1 tablet ORAL q 4 H PRN Roger Han 1 tablet at 08/21/19 2018 - [MAR Hold due to Transfer] acetaminophen 650 mg tab(s) (TYLENOL) 650 mg ORAL q 4 H PRN Dunia [place] 650 mg at 08/21/19 0113 - [MAR Hold due to Transfer] atorvastatin 40 mg tab(s) (LIPITOR) 40 mg ORAL AT BEDTIME Dunia [place] 40 mg at 08/21/19 2004 - [MAR Hold due to Transfer] losartan 50 mg tab(s) (COZAAR) 50 mg ORAL BID Dunia [place] 50 mg at 08/22/19 0840 - [MAR Hold due to Transfer] metoprolol tartrate (short acting) 25 mg tab(s) (LOPRESSOR) 25 mg ORAL BID Dunia [place] 25 mg at 08/21/192003 - [MAR Hold due to Transfer] tamsulosin ER 0.4 mg cap(s) (FLOMAX) 0.4 mg ORAL DAILY Dunia [place] 0.4 mg at 08/21/19 0953 - [MAR Hold due to Transfer] NaCl 0.9% 3-5 mL 3-5 mL INTRAVENOUS q 12 H Dunia [place] 3 mL at 08/22/19 0840 - [MAR Hold due to Transfer] NaCl 0.9% 2-10 mL 2-10 mL INTRAVENOUS q 12 H Dunia [place] 10 mL at 08/22/19 0900 - [JAN Hold due to Transfer] pantoprazole 40 mg injection (PROTONIX) 40 mg INTRAVENOUS q 12 H Dunia [place] 40 mg at 08/22/19 0843 Followed by - [JAN Hold due to Transfer] pantoprazole 40 mg injection (PROTONIX) 40 mg INTRAVENOUS DAILY (6 AM) Dunia [place] Allergies: ALLERGIES No Known Allergies DOS EXAM: Adequate NPO status: Yes Anesthetic risks, benefits, alternatives, personnel and consent discussed: Yes Patient agrees to proceed: Yes Previous Anesthesia: No history of adverse event. Airway Assessment: MP 3; Neck ROM: Full ROM without neurologic symptoms; Airway Evaluation: Thick neck and Short Thyromental Distance Symptoms of Sleep Apnea: Age over 50 (79 year old), Neck circumference > 15.75 inches and Male gender Dentition: Dentures: both Additional Physical Exam: Lungs: Patient health status unchanged since recent history and physical. See history and physical for exam findings. Cardiac: Patient health status unchanged since recent history and physical. See history and physical for exam findings. Additional Pertinent Findings: N/A Blood Products: Not anticipated for this procedure. Anesthetic Plan: MAC with Sedation Pain Management Plan: Parenteral or Oral ASA Class: 3 Other Medical Problems: Hgb 7.6, CAD, A-fib, HTN, GI bleed Chronic Beta Leyda medication administered within 24 hours: Yes I have interviewed and examined the patient. I have reviewed the medical record and/or the pre-anesthesia evaluation, pertinent labs, and test results. Significant changes in the patient's condition since the History and Physical, not otherwise documented in primary service progress notes: No This contains updated information obtained within 48 hours of Surgery/Procedure. SIGNATURE: Marlon Womack MD PATIENT NAME: Elias Shah DATE: August 22, 2019 TIME: 12:40 PM CSN: [id number] [facility] CASE MANAGEMon 08-22-2019 CASE MANAGEM HNO ID: [id number] Author: Barbara Roque RN Service: Care Management Author Type: Registered Nurse Type: Care Mgt Progress Note Filed: 08/22/2019 2:29 PM Note Text: CARE MANAGEMENT PROGRESS NOTE SERVICE DATE: 08/22/2019 SERVICE TIME: 2:29 PM LOS: 2 days Attempted to meet with pt for initial assessment, he is in Endo for procedure. Will F/U SIGNATURE: Barbara Roque RN PATIENT NAME: Elias Shah DATE: August 22, 2019 TIME: 2:29 PM PAGER/CONTACT #: [phone] [facility] CASE MANAGEM HNO ID: [id number] Author: Serene Amaya Service: Care Management Author Type: ? Type: Care Mgt Progress Note Filed: 08/22/2019 11:08 AM Note Text: CARE MANAGEMENT PROGRESS NOTE SERVICE DATE: 08/22/2019 SERVICE TIME: 1015 LOS: 2 days IM letter given to patient on . SIGNATURE: Serene Amaya PATIENT NAME: Elias Shah DATE: August 22, 2019 TIME: 11:07 AM PAGER/CONTACT #: [phone] [facility] NURSING PROGon 08-22-2019 NURSING PROG HNO ID: [id number] Author: Rica Garcia RN Service: ? Author Type: Registered Nurse Type: Nursing Progress Note Filed: 08/22/2019 12:42 AM Note Text: Nursing Progress Note Patient Name: Elias Shah Patient Location: [place] [address] [id number]- Daily Note: 2352: Sound text paged, BP 170/62 and HR 50, pt not symptomatic. 2354: Dr. Rubi called back ordered 50mg PO Hydralazine. Will continue to monitor. This note was completed by: Rica Garcia RN [facility] NUTRITIONon 08-22-2019 NUTRITION HNO ID: [id number] Author: Sydnee Fisher RD (Ld) Service: Nutrition Therapy Author Type: Registered Dietitian Type: Nutrition Filed: 08/22/2019 12:20 PM Note Text: NUTRITION THERAPY INITIAL ASSESSMENT SERVICE DATE: 08/22/2019 SERVICE TIME: 11:00 AM RECOMMENDED MALNUTRITION DIAGNOSIS: NO MALNUTRITION IDENTIFIED NUTRITION CARE PLAN: No nutrition diagnosis at this time Intervention: -Encouraged pt to continue with adequate oral intake -Dietitian to monitor diet progression and goal for diet: Heart Healthy Monitor and Evaluation: Goal: Meet >75% of estimated needs Monitor fluid/electrolyte balance Monitor labs, I/Os, vital signs, weight Monitor diet progression Discharge Nutrition Recommendations: Diet: Heart Healthy Reason for Assessment: prior noted moderate malnutrition in context of acute illness identified on 07/11/19 by MST of 0 on this admission. Per HPI: Thi is 79 year old male who presents with weakness, BARDALES, melena. Pt having endoscopy today 08/22/19, and has had no further GI bleeding. Patient was in CC/AG 07/04/19-07/13/19 for CABG with AVR on 07/04/19. ACTIVE PROBLEM LIST Abnormal Electrocardiogram (Ecg) (Ekg) Anemia, Unspecified Aortic Valve Stenosis Atrial Fibrillation With Rapid Ventricular Response (Hcc) Mauro (Acute Kidney Injury) (Hcc) Acute Metabolic Encephalopathy Vitamin D Deficiency Small Bowel Obstruction (Hcc) Paroxysmal Atrial Fibrillation (Hcc) Lbbb (Left Bundle Branch Block) Incarcerated Umbilical Hernia Declining Functional Status Essential Hypertension Hyperlipidemia Impaired Cognition Aortic Stenosis Malnutrition of Moderate Degree (Hcc) S/P Avr (Aortic Valve Replacement) S/P Cabg X 2 Acute Encephalopathy Coronary Artery Disease of [place] Artery of [place] Heart With Stable Angina Pectoris (Hcc) S/P Avr Left Bundle Branch Block Hypertension Coronary Artery Disease Atrial Fibrillation (Hcc) Anemia Chest Pain Shortness of Breath GI Bleed PAST MEDICAL HISTORY Diagnosis Date - Acute kidney injury (HCC) - Acute metabolic encephalopathy - Anemia - Aortic stenosis - Atrial fibrillation (HCC) - Bowel obstruction (HCC) - Coronary artery disease - Hyperlipidemia - Hypertension - Left bundle branch block - Mitral valve annular calcification - Prolonged QT interval - S/P AVR 07/04/[address] Cristhian Trifecta pericardial prosthesis at [facility] by Dr. 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 Rivers - Vitamin D deficiency PAST SURGICAL HISTORY Procedure Laterality Date - ATRIAL APPENDAGE LIGATION 07/04/2019 35 mm AtriCure clip at [facility] by Dr. Rivers - CABG (2) VEIN GRAFTS AND ARTERIAL GRAFT(S 07/04/2019 at [facility] by Dr. Rivers - REPAIR UMBILICAL HERNIA 12/04/2018 after bowel perforation done at [facility] Dr. Young - REPLAC AORT VALV PROSTH VALV 07/04/[address] Cristhian Trifecta pericardial prosthesis at [facility] by Dr. Rivers Social History Socioeconomic History Marital status: Spouse name: Not on file Number of children: Not on file Years of education: Not on file Highest education level: Not on file Occupational History Not on file Social Needs Financial resource strain: Not on file Food insecurity: Worry: Not on file Inability: Not on file Transportation needs: Medical: Not on file Non-medical: Not on file Tobacco Use Smoking status: Former Smoker Packs/day: 1.00 Years: 5.00 Pack years: 5 Quit date: 11/23/1954 Years since quittin.7 Smokeless tobacco: Never Used Substance and Sexual Activity Alcohol use: Not Currently Comment: social Drug use: Never Sexual activity: Not on file Lifestyle Physical activity: Days per week: Not on file Minutes per session: Not on file Stress: Not on file Relationships Social connections: Talks on phone: Not on file Gets together: Not on file Attends alevism service: Not on file Active member of club or organization: Not on file Attends meetings of clubs or organizations: Not on file Relationship status: Not on file Intimate partner violence: Fear of current or ex partner: Not on file Emotionally abused: Not on file Physically abused: Not on file Forced sexual activity: Not on file Other Topics Concerns: Service: No Blood Transfusions: Yes Caffeine Concern: No Occupational Exposure: Not Asked Hobby Hazards: Not Asked Sleep Concern: No Stress Concern: No Weight Concern: Not Asked Special Diet: Yes no restrictions Back Care: Not Asked Exercise: No sedentary Bike Helmet: Not Asked Seat Belt: Yes Self-Exams: Yes Social History Narrative Not on file Orders Placed This Encounter DIET LIQUID Standing Status: Standing Number of Occurrences: 1 Order Specific Question: Liquid Diet Answer: CLEAR LIQUID Order Specific Question: Feeding instructions for nursing Answer: No reds Lines and Drains: Peripheral 08/20/19 1504 Admission to Hospital Short Right Antecubital 20 Gauge (Active) Nutritional Intake Prior to Admission: >75% estimated energy needs over the past 1 month(s). Per pt reports has been eating well till this am when not allowed anything due to having EGD this am. Pt reports has good appetite. GI symptoms: none Nutrition Abdominal Exam:, abdomen is soft and bowel sounds are normal per clinical documentation. ANTHROPOMETRICS Height: 182.9 cm (6') Admission Weight: 90.3 kg (199 lb) Current Weight: 90.2 kg (198 lb 13.7 oz) Body mass index is 26.97 kg/m?. overweight Weight has decreased by 5.9 kg over 1 months representing 6.1 % weight change clinically significant but noted most likely decrease with change in fluid shifts from edema -UBW per patient is 200 lbs Last Wt 08/22/19 : 90.2 kg (198 lb 13.7 oz)-bed-no edema noted 08/12/19 : 90.3 kg (199 lb), office visit-vascular 07/28/19 : 93.4 kg (206 lb),office visit-vascular 07/13/19 : 96.1 kg (211 lb 12.8 oz)-previous admission-standing and noted with 2+ BLE Edema and 1+ BUE Edema 06/27/19 : 90.7 kg (200 lb) 05/25/19 : 89.4 kg (197 lb) 05/11/19 : 88.5 kg (195 lb) 05/11/19 : 88.8 kg (195 lb 12.8 oz) 04/13/19 : 88.9 kg (196 lb) [place] Body Weight: 80.9kg Resting Metabolic Rate: 1650 Estimated kilocalorie needs: 0521-0504 kilocalories determined by 25-30 kcal/kg Estimated protein needs: 97-105 grams determined by 1.2-1.3 g/kg [place] weight Estimated fluid needs: 3917-6136 milliliters based on 1 mL per kcal NUTRITION FOCUSED PHYSICAL EXAM: Subcutaneous Fat Loss Orbital No fat loss Triceps No fat loss Mid-axillary at the iliac crest Unable to determine at this time Muscle Loss Locations: Temporalis No muscle loss Pectoralis No muscle loss Deltoids No muscle loss Interosseous No muscle loss Latissimus dorsi, trapezius Unable to determine at this time Quadriceps Unable to determine at this time Gastrocnemius Unable to determine at this time Potential micronutrient deficiency revealed in: No deficiency identified Edema: No Ascites: No Assessment of Functional Status: Functional capacity is unrelated to nutrition status Temperature Max in 24 hours: Temp (24hrs), Av.6 ?C (97.8 ?F), Min:36.3 ?C (97.4 ?F), Max:36.9 ?C (98.4 ?F) BP 158/65 Pulse (!) 55 Temp 36.8 ?C (98.2 ?F) (Oral) Resp 18 Ht 182.9 cm (6') Wt 90.2 kg (198 lb 13.7 oz) SpO2 99% BMI 26.97 kg/m? Recent Labs 08/22/19 0625 08/21/19 0318 GLUC 91 -- 92 BUN 21* -- 40* CREAT 1.10 -- 1.18* NA 140 -- 142 K 3.6 -- 3.4* CHLOR 109* -- 108* CO2 28 -- 26 ALB -- -- 2.6* HB 7.6* < > 8.0* HCT 25.0* -- 25.0* WBC 4.52 -- 5.90 MG -- -- 1.7 < > = values in this interval not displayed. Potential Signs of Inflammation: hypoalbuminemia and chronic condition ALLERGIES No Known Allergies Current Facility-Administered Medications Medication Dose Route Frequency - [MAR Hold due to Transfer] morphine 4 mg injection 4 mg INTRAVENOUS q 4 H PRN - [MAR Hold due to Transfer] HYDROcodone 5 mg - acetaminophen 325 mg tablet (NORCO) 1 tablet ORAL q 4 H PRN - [MAR Hold due to Transfer] acetaminophen 650 mg tab(s) (TYLENOL) 650 mg ORAL q 4 H PRN - [MAR Hold due to Transfer] atorvastatin 40 mg tab(s) (LIPITOR) 40 mg ORAL AT BEDTIME - [MAR Hold due to Transfer] losartan 50 mg tab(s) (COZAAR) 50 mg ORAL BID - [MAR Hold due to Transfer] metoprolol tartrate (short acting) 25 mg tab(s) (LOPRESSOR) 25 mg ORAL BID - [MAR Hold due to Transfer] tamsulosin ER 0.4 mg cap(s) (FLOMAX) 0.4 mg ORAL DAILY - [MAR Hold due to Transfer] NaCl 0.9% 3-5 mL 3-5 mL INTRAVENOUS q 12 H - [MAR Hold due to Transfer] NaCl 0.9% 2-10 mL 2-10 mL INTRAVENOUS q 12 H - [MAR Hold due to Transfer] pantoprazole 40 mg injection (PROTONIX) 40 mg INTRAVENOUS q 12 H Date 08/21/19 07 - 08/22/19 0659 08/22/19 07 - 08/23/19 0659 Shift 7902-3583 0258-4070 8382-9875 24 Hour Total 9951-3836 8484-2792 7932-0437 24 Hour Total INTAKE PO 826 609 8685 PO 980 121 3112 Shift Total 081 747 1212 OUTPUT Urine 200 1545 1745 Void (ml) 200 1545 1745 # of BMs Number of BMs 1 x 1 x Shift Total 200 1545 1745 Weight (kg) 90.1 90.1 90.2 90.2 90.2 90.2 90.2 90.2 Surgical Incision 08/20/19 1506 Chest (Active) Dressing Status None: Open to Air 08/21/2019 11:42 PM Frequency of Dressing Change As Needed 08/20/2019 3:04 PM Incision Closures None 08/21/2019 11:42 PM Drainage Description None 08/21/2019 11:42 PM Drainage Amount None 08/21/2019 11:42 PM Edges Intact 08/21/2019 11:42 PM Hematoma No 08/21/2019 11:42 PM Number of days: 1 Vitamin and Mineral Labs in the past year: Recent Labs 07/07/19 2320 04/22/19 1359 B12 227 -- TIBC -- 373 FE -- 38* EDDI -- 42.3 MNT Billing Type: Initial Assess/15 min 4 units SIGNATURE: WILLIAM Belcher PATIENT NAME: Elias Shah DATE: August 22, 2019 TIME: 12:02 PM PAGER: [phone] [facility] OPERATIVE NOon 08-22-2019 OPERATIVE NO HNO ID: [id number] Author: Zora Peter Service: Gastroenterology Author Type: Physician Type: Operative Report Filed: 08/22/2019 1:40 PM Note Text: OPERATIVE/PROCEDURE REPORT LOG ID: [id number] Surgery/Procedure Date: 08/22/2019 Incision/Procedure Start Time: 1:29 PM Incision Close/Procedure End Time: 1:33 PM Surgeon(s)/Procedural ist(s) and Cork Pressing Machine Operator(s): Surgeon(s) and Role: * Zora Peter - Primary No Additional Staff Procedure(s): Esophagogastroduodeno scopy (EGD) Anesthesia: Monitored Anesthesia Care Brief History: 79/M, admitted with c/o- passing melenic stools with low HANDH Procedure Details: The patient was placed in the left lateral decubitus position. A bite block was placed and medications administered as above. The Olympus gastroscope was used to intubate the oropharynx and esophagus with ease. Esophagus- No strictures; mucosa unremarkable; Diaphragmatic indentation at 41 cm, GE junction at 41 cm and Squamocolumnar junction at 41 cm from incisors. Stomach- Cardia- No masses Body- normal Antrum- normal Fundus (during retroflexion)- normal Duodenum- Bulb- normal; Second part- normal; third and fourth past- normal Proximal jejunum- normal The scope was then withdrawn and the patient tolerated the procedure well. Pre-Op/Pre-Procedure Diagnosis: Melena Post-Op/Post-Procedur e Diagnosis: Normal exam up to proximal jejunum Specimens: See above EBL: None Complications: None Recommendations: Continue current medications Plan colonoscopy No qualified resident/fellow was available. Zora Peter MD SIGNATURE: Zora Peter MD PATIENT NAME: Elias Shah DATE: August 22, 2019 TIME: 1:36 PM PAGER/CONTACT #: [facility] PROGRESSon 08-22-2019 PROGRESS HNO ID: [id number] Author: Roger Han Service: Hospital Medicine Author Type: Physician Type: Progress Notes Filed: 08/22/2019 2:45 PM Note Text: DEPARTMENT OF HOSPITAL MEDICINE PROGRESS NOTE SERVICE DATE: 08/22/2019 SERVICE TIME: 8:34 AM Hospital Medicine/Primary Attending: Roger Han MD NIGHT AND WEEKEND COVERAGE: After 7pm please page [phone] CHIEF COMPLAINT: UGIB SUBJECTIVE: Patient has had no further GI bleeding. He is going for an endoscopy later this morning. He is not having any dizziness, chest pain, shortness of breath, melena, hematochezia, or hematemesis. OBJECTIVE: PHYSICAL EXAM: BP 159/66 Pulse 64 Temp (Src) 98.4 (Oral) Resp 16 Ht 6' 0 (1.83m) Wt 198 lb 13.7 oz (90.2kg) SpO2 100% BMI 26.96 kg/(m2). O2 Therapy: Nasal Cannula, Liters: 1 General - AANDOx3, NAD, Calm CV - RRR S1 S2, No M/R/G RESP - CTA B/L No wheezes, ronchi, rales ABD - soft, NT, ND +BS EXT - no gross joint deformity, no clubbing, cyanosis, edema MEDICATIONS: Current Facility-Administered Medications Medication Dose Route Frequency - acetaminophen 650 mg tab(s) (TYLENOL) 650 mg ORAL q 4 H PRN - atorvastatin 40 mg tab(s) (LIPITOR) 40 mg ORAL AT BEDTIME - losartan 50 mg tab(s) (COZAAR) 50 mg ORAL BID - metoprolol tartrate (short acting) 25 mg tab(s) (LOPRESSOR) 25 mg ORAL BID - tamsulosin ER 0.4 mg cap(s) (FLOMAX) 0.4 mg ORAL DAILY - NaCl 0.9% 3-5 mL 3-5 mL INTRAVENOUS q 12 H - NaCl 0.9% 2-10 mL 2-10 mL INTRAVENOUS q 12 H - pantoprazole 40 mg injection (PROTONIX) 40 mg INTRAVENOUS q 12 H Followed by - [START ON 08/24/2019] pantoprazole 40 mg injection (PROTONIX) 40 mg INTRAVENOUS DAILY (6 AM) - morphine 4 mg injection 4 mg INTRAVENOUS q 4 H PRN - HYDROcodone 5 mg - acetaminophen 325 mg tablet (NORCO) 1 tablet ORAL q 4 H PRN - ondansetron (PF) 4 mg injection (ZOFRAN) 4 mg INTRAVENOUS ONCE DATA: Diagnostic tests reviewed for today's visit: CBC: Recent Labs 08/22/19 0625 WBC 4.52 RBC 2.75* HB 7.6* HCT 25.0* PLT 147 MCV 90.9 MCH 27.6 MPV 9.9 RDW 14.9* CMP: Recent Labs 08/22/19 0625 NA 140 K 3.6 CHLOR 109* CO2 28 BUN 21* CREAT 1.10 GLUC 91 CA 8.2* ANION 7* Assessment/Plan Principal Problem: ??Anemia due to acute blood loss POA: Yes ?Assessment AND?Plan: due to UGI bleed. ?On protonix IV. EGD today. ? Active Problems: ??GI bleed POA: Yes ?Assessment AND?Plan: upper likely aspirin induced. ?EGD today ? ??Chest pain POA: Yes ?Assessment AND?Plan: troponins negative ? ??Shortness of breath POA: Yes ?Assessment AND?Plan: due to anemia. ?Essential hypertension POA: Yes ?Assessment AND?Plan: cont with home meds. ?Hold diuretic as with some MAURO due to bleeding. ? ??Hyperlipidemia POA: Yes ?Assessment AND?Plan: cont with rx. ? ??S/P AVR POA: Yes ?Assessment AND?Plan: ?Left bundle branch block POA: Yes ?Assessment AND?Plan: chronic. ? ??Coronary artery disease POA: Yes ?Assessment AND?Plan: S/P 2 vessel bypass. ?Asa held due to bleeding. Cont with all other medications. ? ??Atrial fibrillation (HCC) POA: Yes ?Assessment AND?Plan: previously was on amiodarone and bb. ??Now just bb and this was lowered recently due to bradycardia. ?Monitor on tele. ? Hypokalemia. resolved VTE Prophylaxis: Pneumatic Compression Device Disposition: Home Plan of care discussed with: Patient SIGNATURE: Roger Han MD PATIENT NAME: Elias Shah DATE: August 22, 2019 TIME: 8:34 AM PAGER/CONTACT #: [phone] [facility] PT EDon 08-22-2019 PT ED HNO ID: [id number] Author: Adriane GusmanRn) AGUSTO Avelar Service: ? Author Type: Registered Nurse Type: Patient Education Filed: 08/22/2019 2:48 PM Note Text: ONGOING PATIENT EDUCATION TOPIC Reinforced: sedation Patient Name: Elias Shah [place] Readiness To Learn Motivation To Learn: Interested Instruction Provided To: Patient Learning Response Patient/Family Response: Verbalizes understanding of: POST-PROCEDURE INSTRUCTIONS-Correct actions to take to reduce post procedure complications Method of Instruction: Verbal instruction Follow-Up Plan: Complete - No need for follow-up Electronically signed by: Adriane Avelar RN [facility] PT ED HNO ID: [id number] Author: Sherrie (Rn) AGUSTO Bradshaw Service: Nursing Author Type: Registered Nurse Type: Patient Education Filed: 08/22/2019 1:19 PM Note Text: PRE OP LEARNING ASSESSMENT PROCEDURE/SURGERY: GI PROCEDURES: EGD READINESS TO LEARN COGNITIVE ABILITY: Alert and oriented MOTIVATION TO LEARN: Interested FAMILY SUPPORT: Moderate - Family present but overwhelmed PATIENT LEARNS BEST BY: Verbal Instruction FACTORS AFFECTING LEARNING: None PHYSICAL LIMITATIONS AFFECTING LEARNING: None Electronically Signed By: Sherrie Bradshaw RN [facility] CONSULTon 08-21-2019 CONSULT HNO ID: [id number] Author: Niesha Musa Service: Gastroenterology Author Type: Physician Type: Consults Filed: 08/21/2019 12:31 PM Note Text: CONSULT: GASTRENTEROLOGY SERVICE SERVICE DATE: 08/21/2019 SERVICE TIME: 12:18 PM REASON FOR CONSULT: GI bleeding REQUESTING PHYSICIAN: PRIMARY CARE PHYSICIAN: Mal Main MD Subjective Mr. Shah is a 79 year old male who presents for SOB and near syncope and noted to have anemia. Patient describe two melanotic stools. Also describes some epigastric abdominal pain, pain is radiating to back; patient thinks this from laying in bed. No nausea or vomiting. No history NSAID's, no previous history of EGD but colonoscopy out side last year but patient cannot recall details. Recent CABG 3 months ago on ASA. Hx o Afib, bio prosthetic aortic valve. FUNCTIONAL STATUS: Partially dependent PAST MEDICAL HISTORY Diagnosis Date - Acute kidney injury (HCC) - Acute metabolic encephalopathy - Anemia - Aortic stenosis - Atrial fibrillation (HCC) - Bowel obstruction (HCC) - Coronary artery disease - Hyperlipidemia - Hypertension - Left bundle branch block - Mitral valve annular calcification - Prolonged QT interval - S/P AVR 07/04/[address] Cristhian Trifecta pericardial prosthesis at [facility] by Dr. 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 Rivers - Vitamin D deficiency PAST SURGICAL HISTORY Procedure Laterality Date - ATRIAL APPENDAGE LIGATION 07/04/2019 35 mm AtriCure clip at [facility] by Dr. Rivers - CABG (2) VEIN GRAFTS AND ARTERIAL GRAFT(S 07/04/2019 at [facility] by Dr. Rivers - REPAIR UMBILICAL HERNIA 12/04/2018 after bowel perforation done at [facility] Dr. Young - REPLAC AORT VALV PROSTH VALV 07/04/[address] Cristhian Trifecta pericardial prosthesis at [facility] by Dr. Rivers FAMILY HISTORY Problem Relation Age of Onset - Osteoporosis Mother - Heart Mother - Cancer Father lung Social History Tobacco Use - Smoking status: Former Smoker Packs/day: 1.00 Years: 5.00 Pack years: 5.00 Last attempt to quit: 11/23/1954 Years since quittin.7 - Smokeless tobacco: Never Used Substance Use Topics - Alcohol use: Not Currently Comment: social - Drug use: Never Medications Prior to Admission: losartan (COZAAR) 50 mg tablet Take 50 mg by mouth twice daily. Disp: Rfl: Ferrous Fumarate-Iron Ps Cmplx 162-115.2 (106) mg cap Take 1 tablet by mouth once daily. Disp: Rfl: ascorbic acid, vitamin C, (VITAMIN C) 500 mg tablet Take 500 mg by mouth once daily. Disp: Rfl: furosemide (LASIX) 20 mg tablet Take 1 tablet by mouth once daily for 7 days. Disp: 7 tablet Rfl: 0 metoprolol tartrate, short acting, (LOPRESSOR) 25 mg tablet Take 2 tablets by mouth twice daily. (Patient taking differently: Take 25 mg by mouth twice daily. ) Disp: 60 tablet Rfl: 5 guaifen/dextromethorp coronado/pe (GUAIFEN DM ORAL) Take by mouth. Disp: Rfl: Taking aspirin 81 mg chewable tablet Take 2 tablets by mouth once daily. Disp: Rfl: Taking atorvastatin (LIPITOR) 40 mg tablet Take 1 tablet by mouth daily at bedtime. Disp: Rfl: Taking polyethylene glycol 3350 (MIRALAX, GLYCOLAX) 17 gram packet Take 1 Packet by mouth once daily as needed. Disp: Rfl: Taking tamsulosin ER (FLOMAX) 0.4 mg cap Take 0.4 mg by mouth once daily. Disp: Rfl: 08/19/2019 at 2000 oxyCODONE ir (OXYIR) 5 mg capsule Take 5 mg by mouth every 6 hours as needed. Disp: Rfl: Taking acetaminophen (TYLENOL) 325 mg tablet Take 2 tablets by mouth every 4 hours as needed. Disp: Rfl: Taking Current Facility-Administered Medications Medication Dose Route Frequency - acetaminophen 650 mg tab(s) (TYLENOL) 650 mg ORAL q 4 H PRN - atorvastatin 40 mg tab(s) (LIPITOR) 40 mg ORAL AT BEDTIME - losartan 50 mg tab(s) (COZAAR) 50 mg ORAL BID - metoprolol tartrate (short acting) 25 mg tab(s) (LOPRESSOR) 25 mg ORAL BID - tamsulosin ER 0.4 mg cap(s) (FLOMAX) 0.4 mg ORAL DAILY - NaCl 0.9% 3-5 mL 3-5 mL INTRAVENOUS q 12 H - NaCl 0.9% 2-10 mL 2-10 mL INTRAVENOUS q 12 H - pantoprazole 40 mg injection (PROTONIX) 40 mg INTRAVENOUS q 12 H Followed by - [START ON 08/24/2019] pantoprazole 40 mg injection (PROTONIX) 40 mg INTRAVENOUS DAILY (6 AM) - morphine 4 mg injection 4 mg INTRAVENOUS q 4 H PRN - potassium chloride iv piggyback 20 mEq/100 mL 20 mEq INTRAVENOUS ONCE - HYDROcodone 5 mg - acetaminophen 325 mg tablet (NORCO) 1 tablet ORAL q 4 H PRN Allergies As of Date: 08/20/2019 (No Known Allergies) Fully Assessed 08/20/2019 COMPLETE REVIEW OF SYSTEMS: PAIN ASSESSMENT: Negative for pain, history of chronic pain, or current treatment for a chronic pain condition. GENERAL: No weight loss, malaise or fevers HEENT: Negative for frequent or significant headaches RESPIRATORY: Negative for cough, hemoptysis, wheezing, COPD, dyspnea or shortness of breath CARDIOVASCULAR: Negative for chest pain, leg swelling, hypertension, CHF or palpitations GI: See HPI Objective PHYSICAL EXAM: GENERAL: Alert, no distress, cooperative EYES: Negatives conjunctivae and sclerae normal LUNGS: Lungs clear to auscultation, Good diaphragmatic excursion CARDIAC: Normal S1 and S2; no rubs, murmurs, or gallops ABDOMEN: Abdomen soft, non-tender, BS normal, No masses or organomegaly EXTREMITIES: Normal exam of the extremities Patient Vitals for the past 24 hrs: BP Temp Temp src Pulse Resp SpO2 Height Weight 08/21/19 0941 149/61 ? ? 63 ? 08/21/19 0630 ? 90.1 kg (198 lb 10.2 oz) 08/21/19 0320 158/64 36.9 ?C (98.4 ?F) Oral 64 20 100 % ? ? 08/21/19 0100 157/68 37.5 ?C (99.5 ?F) Oral 67 20 100 % ? ? 08/20/19 2108 145/66 37.2 ?C (99 ?F) Oral 68 18 100 % ? ? 08/20/19 1953 145/64 37 ?C (98.6 ?F) Oral 83 20 100 % ? ? 08/20/19 1900 184/66 36.5 ?C (97.7 ?F) ? 92 18 100 % ? ? 08/20/19 1852 148/60 37 ?C (98.6 ?F) Oral 91 20 ? ? ? 08/20/19 1844 161/66 ? ? 91 20 ? ? ? 08/20/19 1836 166/69 36.9 ?C (98.4 ?F) Oral 103 20 100 % ? ? 08/20/19 1503 152/71 ? ? 86 20 ? ? ? 08/20/19 1437 ? 182.9 cm (6') 90.3 kg (199 lb) 08/20/19 1430 (!) 231/82 36.9 ?C (98.4 ?F) Oral (!) 140 22 99 % ? ? Body mass index is 26.94 kg/m?. DATA: Diagnostic tests reviewed for today's visit: Most recent labs and imaging results. CBC, Coags, BMP, Mg, Phos Recent Labs 08/21/1931708/20/19212608/20/19 1656 WBC 5.90 -- -- HB 8.0* 7.1* 6.3* HCT 25.0* 23.3* 20.6* PLT 171 -- -- NA 142 -- -- K 3.4* -- -- CHLOR 108* -- -- CO2 26 -- -- BUN 40* -- -- CREAT 1.18* -- -- GLUC 92 -- -- CA 8.0* -- -- MG 1.7 -- -- Liver Function, Amylase, AND Lipase Recent Labs 08/21/19317 TPROT 6.0* ALB 2.6* ALT 10* AST 12* ALKPHOS 63 TBILI 0.5 Impression/Recommenda tions Principal Problem: Anemia POA: Yes Assessment AND Plan: most likely UGI bleeding. Will schedule EGD AM. On PPI. Monitor CBC Active Problems: Chest pain POA: Yes Assessment AND Plan: GI bleed POA: Yes Assessment AND Plan: see above Shortness of breath POA: Yes Assessment AND Plan: Essential hypertension POA: Yes Assessment AND Plan: Hyperlipidemia POA: Yes Assessment AND Plan: S/P AVR POA: Yes Assessment AND Plan: Left bundle branch block POA: Yes Assessment AND Plan: Hypertension POA: Yes Assessment AND Plan: Coronary artery disease POA: Yes Assessment AND Plan: Atrial fibrillation (HCC) POA: Yes Assessment AND Plan: Resolved Problems: * No resolved hospital problems. * SIGNATURE: Niesha Musa MD PATIENT NAME: Elias Shah DATE: August 21, 2019 TIME: 12:18 PM PAGER: [phone] [facility] PROGRESSon 08-21-2019 PROGRESS HNO ID: [id number] Author: Roger Han Service: Hospital Medicine Author Type: Physician Type: Progress Notes Filed: 08/21/2019 9:06 AM Note Text: DEPARTMENT OF HOSPITAL MEDICINE PROGRESS NOTE SERVICE DATE: 08/21/2019 SERVICE TIME: 9:00 AM Hospital Medicine/Primary Attending: Roger Han MD NIGHT AND WEEKEND COVERAGE: After 7pm please page [phone] CHIEF COMPLAINT: Upper back pain SUBJECTIVE: Patient complains of upper back pain across the upper back and lower shoulder area. It does not radiate down his arms. He is not having any numbness or tingling in his speech. Denies any trouble breathing. No anterior chest pain. His abdominal discomfort is improved. He has not had any hematemesis since admission. No dizziness or palpitations. OBJECTIVE: PHYSICAL EXAM: BP 158/64 Pulse 64 Temp (Src) 98.4 (Oral) Resp 20 Ht 6' 0 (1.83m) Wt 198 lb 10.2 oz (90.1kg) SpO2 100% BMI 26.93 kg/(m2). O2 Therapy: Nasal Cannula, Liters: 2 General - AANDOx3, NAD, Calm CV - RRR S1 S2, No M/R/G RESP - CTA B/L No wheezes, ronchi, rales ABD - soft, NT, ND +BS EXT - no gross joint deformity, no clubbing, cyanosis, edema. Upper back is slightly tender over the upper thoracic and lower cervical paravertebral musculature. No spasm. He has a small sebaceous cyst which is uninflamed. This is located in the midline in his upper back. MEDICATIONS: Current Facility-Administered Medications Medication Dose Route Frequency - acetaminophen 650 mg tab(s) (TYLENOL) 650 mg ORAL q 4 H PRN - atorvastatin 40 mg tab(s) (LIPITOR) 40 mg ORAL AT BEDTIME - losartan 50 mg tab(s) (COZAAR) 50 mg ORAL BID - metoprolol tartrate (short acting) 25 mg tab(s) (LOPRESSOR) 25 mg ORAL BID - tamsulosin ER 0.4 mg cap(s) (FLOMAX) 0.4 mg ORAL DAILY - NaCl 0.9% 3-5 mL 3-5 mL INTRAVENOUS q 12 H - NaCl 0.9% iv infusion 75 mL/hr INTRAVENOUS CONTINUOUS - NaCl 0.9% 2-10 mL 2-10 mL INTRAVENOUS q 12 H - pantoprazole 40 mg injection (PROTONIX) 40 mg INTRAVENOUS q 12 H Followed by - [START ON 08/24/2019] pantoprazole 40 mg injection (PROTONIX) 40 mg INTRAVENOUS DAILY (6 AM) - morphine 4 mg injection 4 mg INTRAVENOUS q 4 H PRN DATA: Diagnostic tests reviewed for today's visit: CBC: Recent Labs 08/21/19317 WBC 5.90 RBC 2.85* HB 8.0* HCT 25.0* PLT 171 MCV 87.7 MCH 28.1 MPV 10.1 RDW 15.0* CMP: Recent Labs 08/21/19 0318 NA 142 K 3.4* CHLOR 108* CO2 26 BUN 40* CREAT 1.18* GLUC 92 TPROT 6.0* CA 8.0* MG 1.7 TBILI 0.5 ALKPHOS 63 ALT 10* AST 12* ANION 11 MG/PHOS: Recent Labs 08/21/19 0318 MG 1.7 Assessment/Plan Principal Problem: Anemia POA: Yes Assessment AND Plan: due to UGI bleed. On protonix drip. Will change to IV BID per GI bleed protocol. Clear liquid diet. No aspirin or nsaids at this time. Transfuse <7. Patient is symptomatic with exertion. When transferred to bed upon arrival his HR was 140s and SBP > 200. GI consult. Blood product consent signed and on chart. ? Active Problems: GI bleed POA: Yes Assessment AND Plan: upper likely aspirin induced. GI to see. Clear liquids. H/H every 6 hours and transfuse <7. Symptomatic. ? Chest pain POA: Yes Assessment AND Plan: cycle troponins and monitor on tele. Is 2 months out from cabg and bioprosthetic heart valve. ? Shortness of breath POA: Yes Assessment AND Plan: due to anemia. CXR without effusion. Cycle troponins. Transfuse as needed. ? Essential hypertension POA: Yes Assessment AND Plan: cont with home meds. Hold diuretic as with some MAURO due to bleeding. ? Hyperlipidemia POA: Yes Assessment AND Plan: cont with rx. ? S/P AVR POA: Yes Assessment AND Plan: ? Left bundle branch block POA: Yes Assessment AND Plan: chronic. ? Coronary artery disease POA: Yes Assessment AND Plan: S/P 2 vessel bypass. Asa held due to bleeding. Cont with all other medications. ? Atrial fibrillation (HCC) POA: Yes Assessment AND Plan: previously was on amiodarone and bb. Now just bb and this was lowered recently due to bradycardia. Monitor on tele. Hypokalemia. This will be supplemented IV. VTE Prophylaxis: Pneumatic Compression Device Disposition: Home Plan of care discussed with: Patient SIGNATURE: Roger aHn MD PATIENT NAME: Elias Shah DATE: August 21, 2019 TIME: 9:00 AM PAGER/CONTACT #: [phone] Normal [facility] HISTORY PHYSICALon HISTORY PHYSICAL HNO ID: [id number] Author: Dunia Crawford Service: Hospital Medicine Author Type: Physician Type: HANDP Filed: 08/20/2019 8:42 PM Note Text: DEPARTMENT OF HOSPITAL MEDICINE HISTORY AND PHYSICAL EXAM SERVICE DATE: 08/20/2019 SERVICE TIME: 3:00 PM Primary Care Physician: Mal Main MD NIGHT AND WEEKEND COVERAGE: After 7pm, please call cross cover pager #[phone] Subjective CHIEF COMPLAINT: Weakness, BARDALES, melena HPI: This is a 79 year old male who presents with above complaints that started today. Went to get up for bathroom and was having shortness of breath and was feeling weak. Uses a walker. In the bathroom had a large explosive bowel movement that was black and foul smelling. H then went to walk back into the room and his sister states he was panting and was white as could be. Fell into the dining room chair. Was complaining of chest pressure and pain into his lower back. States that he has had upper abdominal pain over the past 4 days. He has also felt a fluttering in his chest at times. Currently feeling better than before. States that he is feeling fluttering right now. Tele SR 86 bpm, LBBB PAST MEDICAL HISTORY Diagnosis Date - Acute kidney injury (HCC) - Acute metabolic encephalopathy - Anemia - Aortic stenosis - Atrial fibrillation (HCC) - Bowel obstruction (HCC) - Coronary artery disease - Hyperlipidemia - Hypertension - Left bundle branch block - Mitral valve annular calcification - Prolonged QT interval - S/P AVR 07/04/[address] Cristhian Trifecta pericardial prosthesis at [facility] by Dr. 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 Rivers - Vitamin D deficiency PAST SURGICAL HISTORY Procedure Laterality Date - ATRIAL APPENDAGE LIGATION 07/04/2019 35 mm AtriCure clip at [facility] by Dr. Rivers - CABG (2) VEIN GRAFTS AND ARTERIAL GRAFT(S 07/04/2019 at [facility] by Dr. Rivers - REPAIR UMBILICAL HERNIA 12/04/2018 after bowel perforation done at [facility] Dr. Young - REPLAC AORT VALV PROSTH VALV 07/04/[address] Cristhian Trifecta pericardial prosthesis at [facility] by Dr. Rivers FAMILY HISTORY Problem Relation Age of Onset - Osteoporosis Mother - Heart Mother - Cancer Father lung Social History Tobacco Use - Smoking status: Former Smoker Packs/day: 1.00 Years: 5.00 Pack years: 5.00 Last attempt to quit: 11/23/1954 Years since quittin.7 - Smokeless tobacco: Never Used Substance Use Topics - Alcohol use: Not Currently Comment: social - Drug use: Never MEDICATIONS: Reviewed Medications Prior to Admission: losartan (COZAAR) 50 mg tablet Take 50 mg by mouth twice daily. Disp: Rfl: Ferrous Fumarate-Iron Ps Cmplx 162-115.2 (106) mg cap Take 1 tablet by mouth once daily. Disp: Rfl: ascorbic acid, vitamin C, (VITAMIN C) 500 mg tablet Take 500 mg by mouth once daily. Disp: Rfl: furosemide (LASIX) 20 mg tablet Take 1 tablet by mouth once daily for 7 days. Disp: 7 tablet Rfl: 0 metoprolol tartrate, short acting, (LOPRESSOR) 25 mg tablet Take 2 tablets by mouth twice daily. (Patient taking differently: Take 25 mg by mouth twice daily. ) Disp: 60 tablet Rfl: 5 guaifen/dextromethorp coronado/pe (GUAIFEN DM ORAL) Take by mouth. Disp: Rfl: Taking aspirin 81 mg chewable tablet Take 2 tablets by mouth once daily. Disp: Rfl: Taking atorvastatin (LIPITOR) 40 mg tablet Take 1 tablet by mouth daily at bedtime. Disp: Rfl: Taking polyethylene glycol 3350 (MIRALAX, GLYCOLAX) 17 gram packet Take 1 Packet by mouth once daily as needed. Disp: Rfl: Taking tamsulosin ER (FLOMAX) 0.4 mg cap Take 0.4 mg by mouth once daily. Disp: Rfl: 08/19/2019 at 2000 oxyCODONE ir (OXYIR) 5 mg capsule Take 5 mg by mouth every 6 hours as needed. Disp: Rfl: Taking acetaminophen (TYLENOL) 325 mg tablet Take 2 tablets by mouth every 4 hours as needed. Disp: Rfl: Taking ALLERGIES No Known Allergies REVIEW OF SYSTEM: GENERAL: Positive for malaise HEENT: Negative for frequent or significant headaches, No changes in hearing or vision, no nose bleeds or other nasal problems NECK: Negative for lumps, goiter, pain and significant neck swelling RESPIRATORY: Shortness of breath CARDIOVASCULAR: Shortness of breath, Chest pain, Hypertension GI: See HPI HEMATOLOGY/LYMPHOLOGY : Negative for prolonged bleeding, bruising easily or swollen nodes ENDOCRINE: Negative for cold or heat intolerance, polyuria, polydipsia and goiter NEURO: No history of headaches, syncope, paralysis, seizures or tremors Objective PHYSICAL EXAM: BP 152/71 Pulse 86 Temp (Src) 98.4 (Oral) Resp 20 Ht 6' 0 (1.83m) Wt 199 lb (90.3kg) SpO2 99% BMI 26.98 kg/(m2). O2 Therapy: Nasal Cannula, Liters: 3 Physical Exam Performed: GENERAL: Alert, no distress, cooperative HEAD/SINUSES: No significant findings EYES: PERRLA, EOMI, some conjunctival pallor OROPHARYNX: Lips, mucosa, and tongue normal. Teeth and gums normal. Oropharynx normal. NECK: No jugulovenous distention, Supple LUNGS: Lungs clear to auscultation, Good diaphragmatic excursion, egophany on left base CARDIAC: Normal S1 and S2; no rubs, murmurs, or gallops ABDOMEN: Abdomen soft, non-tender, BS normal, No masses or organomegaly EXTREMITIES: Extremities normal, no deformities, edema, clubbing or skin discoloration. Good capillary refill. NEURO: Grossly normal cognition, motor function, and cranial nerves III-XII PULSES: 2+ radial, 2+ posterial tibial, 2+ dorsalis pedis Lines, Drains, and Airways Line Peripheral 08/20/19 1504 Admission to Hospital Short Right Antecubital 20 Gauge less than 1 day Reviewed lines, drains, AND airways. Need to be continued DATA: Diagnostic tests reviewed for today's visit: Most recent labs and imaging results. Most recent EKG Assessment/Plan Principal Problem: Anemia POA: Yes Assessment AND Plan: due to UGI bleed. On protonix drip. Will change to IV BID per GI bleed protocol. Clear liquid diet. No aspirin or nsaids at this time. Transfuse <7. Patient is symptomatic with exertion. When transferred to bed upon arrival his HR was 140s and SBP > 200. GI consult. Blood product consent signed and on chart. Active Problems: GI bleed POA: Yes Assessment AND Plan: upper likely aspirin induced. GI to see. Clear liquids. H/H every 6 hours and transfuse <7. Symptomatic. Chest pain POA: Yes Assessment AND Plan: cycle troponins and monitor on tele. Is 2 months out from cabg and bioprosthetic heart valve. Shortness of breath POA: Yes Assessment AND Plan: due to anemia. CXR without effusion. Cycle troponins. Transfuse as needed. Essential hypertension POA: Yes Assessment AND Plan: cont with home meds. Hold diuretic as with some MAURO due to bleeding. Hyperlipidemia POA: Yes Assessment AND Plan: cont with rx. S/P AVR POA: Yes Assessment AND Plan: Left bundle branch block POA: Yes Assessment AND Plan: chronic. Coronary artery disease POA: Yes Assessment AND Plan: S/P 2 vessel bypass. Asa held due to bleeding. Cont with all other medications. Atrial fibrillation (HCC) POA: Yes Assessment AND Plan: previously was on amiodarone and bb. Now just bb and this was lowered recently due to bradycardia. Monitor on tele. Resolved Problems: * No resolved hospital problems. * Medication and Non-Pharmacologic VTE Prophylaxis/Anticoagu lants VTE Prophylaxis: Contraindicated active bleeding Disposition: Home with [facility] Plan of care discussed with: Patient, Family/Significant Other: sister, Emergeny Room Physician and RN SIGNATURE: Dunia Crawford DO PATIENT NAME: Elias Shah DATE: August 20, 2019 TIME: 3:39 PM PAGER/CONTACT #: [phone] Normal [facility] HOSPon 08-20-2019 HOSP Patient:Manav Shah rd MRN: Height:6' 0(1.829 m) Weight:199 lb 1.2 oz (90.3 kg) Outpatient Medications as of 08/23/19: losartan (COZAAR) 50 mg tablet Ferrous Fumarate-Iron Ps Cmplx 162-115.2 (106) mg cap ascorbic acid, vitamin C, (VITAMIN C) 500 mg tablet furosemide (LASIX) 20 mg tablet metoprolol tartrate, short acting, (LOPRESSOR) 25 mg tablet oxyCODONE ir (OXYIR) 5 mg capsule guaifen/dextromethorp coronado/pe (GUAIFEN DM ORAL) acetaminophen (TYLENOL) 325 mg tablet aspirin 81 mg chewable tablet atorvastatin (LIPITOR) 40 mg tablet polyethylene glycol 3350 (MIRALAX, GLYCOLAX) 17 gram packet tamsulosin ER (FLOMAX) 0.4 mg cap Admission/Clinic Administered Medications as of 08/23/19: morphine 4 mg injection HYDROcodone 5 mg - acetaminophen 325 mg tablet (NORCO) acetaminophen 650 mg tab(s) (TYLENOL) atorvastatin 40 mg tab(s) (LIPITOR) losartan 50 mg tab(s) (COZAAR) metoprolol tartrate (short acting) 25 mg tab(s) (LOPRESSOR) tamsulosin ER 0.4 mg cap(s) (FLOMAX) NaCl 0.9% 3-5 mL NaCl 0.9% 2-10 mL pantoprazole 40 mg injection (PROTONIX) pantoprazole 40 mg injection (PROTONIX) Problem List: Abnormal electrocardiogram (ECG) (EKG) [R94.31] Anemia, unspecified [D64.9] Aortic valve stenosis [I35.0] Atrial fibrillation with rapid ventricular response (HCC) [I48.91] MAURO (acute kidney injury) (HCC) [N17.9] Acute metabolic encephalopathy [G93.41] Vitamin D deficiency [E55.9] Small bowel obstruction (HCC) [K56.609] Paroxysmal atrial fibrillation (HCC) [I48.0] LBBB (left bundle branch block) [I44.7] Incarcerated umbilical hernia [K42.0] Declining functional status [R53.81] Essential hypertension [I10] Hyperlipidemia [E78.5] Impaired cognition [R41.89] Aortic stenosis [I35.0] S/P CABG x 2 [Z95.1] Acute encephalopathy [G93.40] Coronary artery disease of [place] artery of [place] heart with stable angina pectoris (HCC) [I25.118] S/P AVR [Z95.2] Left bundle branch block [I44.7] Hypertension [I10] Coronary artery disease [I25.10] Atrial fibrillation (HCC) [I48.91] Anemia [D64.9] Chest pain [R07.9] Shortness of breath [R06.02] GI bleed [K92.2] Allergies: No Known Allergies Date Verified:08/23/19 Lab Values Lab Value Units Date High Low POTA* 3.6 mEq/L 08/22/2019 5.1 3.5 VANGIE* 25.0 % 08/22/2019 51.0 40.1 Progress Notes (JAL[facility]): Brook Sweeney LPN 08/22/2019 2:51 PM Signed Helena Enriquez called today and left message that the pt fell at home, was taken to [facility] then transferred here. He was diagnosed with anemia and given blood transfusion. Pt had EGD and will need colonoscopy. CAGB x 2 done 07/04/19. Helena just wanted this to be noted and sent to the care team here. AMA Carson, DAMAGE ADJUSTER.TENNIS COACH, TENNIS COACH 08/22/2019 3:40 PM Signed Noted. Thank you. Progress Notes (): Dunia Crawford DO 08/20/2019 8:42 PM Signed DEPARTMENT OF HOSPITAL MEDICINE HISTORY AND PHYSICAL EXAM SERVICE DATE: 08/20/2019 SERVICE TIME: 3:00 PM Primary Care Physician: Mal Main MD NIGHT AND WEEKEND COVERAGE: After 7pm, please call cross cover pager #[phone] Subjective CHIEF COMPLAINT: Weakness, BARDALES, melena HPI: This is a 79 year old male who presents with above complaints that started today. Went to get up for bathroom and was having shortness of breath and was feeling weak. Uses a walker. In the bathroom had a large explosive bowel movement that was black and foul smelling. H then went to walk back into the room and his sister states he was panting and was white as could be. Fell into the dining room chair. Was complaining of chest pressure and pain into his lower back. States that he has had upper abdominal pain over the past 4 days. He has also felt a fluttering in his chest at times. Currently feeling better than before. States that he is feeling fluttering right now. Tele SR 86 bpm, LBBB PAST MEDICAL HISTORY Diagnosis Date - Acute kidney injury (HCC) - Acute metabolic encephalopathy - Anemia - Aortic stenosis - Atrial fibrillation (HCC) - Bowel obstruction (HCC) - Coronary artery disease - Hyperlipidemia - Hypertension - Left bundle branch block - Mitral valve annular calcification - Prolonged QT interval - S/P AVR 07/04/[address] Cristhian Trifecta pericardial prosthesis at [facility] by Dr. 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 Rivers - Vitamin D deficiency PAST SURGICAL HISTORY Procedure Laterality Date - ATRIAL APPENDAGE LIGATION 07/04/2019 35 mm AtriCure clip at [facility] by Dr. Rivers - CABG (2) VEIN GRAFTS AND ARTERIAL GRAFT(S 07/04/2019 at [facility] by Dr. Rivers - REPAIR UMBILICAL HERNIA 12/04/2018 after bowel perforation done at [facility] Dr. Young - REPLAC AORT VALV PROSTH VALV 07/04/[address] Cristhian Trifecta pericardial prosthesis at [facility] by Dr. Rivers FAMILY HISTORY Problem Relation Age of Onset - Osteoporosis Mother - Heart Mother - Cancer Father lung Social History Tobacco Use - Smoking status: Former Smoker Packs/day: 1.00 Years: 5.00 Pack years: 5.00 Last attempt to quit: 11/23/1954 Years since quittin.7 - Smokeless tobacco: Never Used Substance Use Topics - Alcohol use: Not Currently Comment: social - Drug use: Never MEDICATIONS: Reviewed Medications Prior to Admission: losartan (COZAAR) 50 mg tablet Take 50 mg by mouth twice daily. Disp: Rfl: Ferrous Fumarate-Iron Ps Cmplx 162-115.2 (106) mg cap Take 1 tablet by mouth once daily. Disp: Rfl: ascorbic acid, vitamin C, (VITAMIN C) 500 mg tablet Take 500 mg by mouth once daily. Disp: Rfl: furosemide (LASIX) 20 mg tablet Take 1 tablet by mouth once daily for 7 days. Disp: 7 tablet Rfl: 0 metoprolol tartrate, short acting, (LOPRESSOR) 25 mg tablet Take 2 tablets by mouth twice daily. (Patient taking differently: Take 25 mg by mouth twice daily. ) Disp: 60 tablet Rfl: 5 guaifen/dextromethorp coronado/pe (GUAIFEN DM ORAL) Take by mouth. Disp: Rfl: Taking aspirin 81 mg chewable tablet Take 2 tablets by mouth once daily. Disp: Rfl: Taking atorvastatin (LIPITOR) 40 mg tablet Take 1 tablet by mouth daily at bedtime. Disp: Rfl: Taking polyethylene glycol 3350 (MIRALAX, GLYCOLAX) 17 gram packet Take 1 Packet by mouth once daily as needed. Disp: Rfl: Taking tamsulosin ER (FLOMAX) 0.4 mg cap Take 0.4 mg by mouth once daily. Disp: Rfl: 08/19/2019 at 2000 oxyCODONE ir (OXYIR) 5 mg capsule Take 5 mg by mouth every 6 hours as needed. Disp: Rfl: Taking acetaminophen (TYLENOL) 325 mg tablet Take 2 tablets by mouth every 4 hours as needed. Disp: Rfl: Taking ALLERGIES No Known Allergies REVIEW OF SYSTEM: GENERAL: Positive for malaise HEENT: Negative for frequent or significant headaches, No changes in hearing or vision, no nose bleeds or other nasal problems NECK: Negative for lumps, goiter, pain and significant neck swelling RESPIRATORY: Shortness of breath CARDIOVASCULAR: Shortness of breath, Chest pain, Hypertension GI: See HPI HEMATOLOGY/LYMPHOLOGY : Negative for prolonged bleeding, bruising easily or swollen nodes ENDOCRINE: Negative for cold or heat intolerance, polyuria, polydipsia and goiter NEURO: No history of headaches, syncope, paralysis, seizures or tremors Objective PHYSICAL EXAM: BP 152/71 Pulse 86 Temp (Src) 98.4 (Oral) Resp 20 Ht 6' 0 (1.83m) Wt 199 lb (90.3kg) SpO2 99% BMI 26.98 kg/(m2). O2 Therapy: Nasal Cannula, Liters: 3 Physical Exam Performed: GENERAL: Alert, no distress, cooperative HEAD/SINUSES: No significant findings EYES: PERRLA, EOMI, some conjunctival pallor OROPHARYNX: Lips, mucosa, and tongue normal. Teeth and gums normal. Oropharynx normal. NECK: No jugulovenous distention, Supple LUNGS: Lungs clear to auscultation, Good diaphragmatic excursion, egophany on left base CARDIAC: Normal S1 and S2; no rubs, murmurs, or gallops ABDOMEN: Abdomen soft, non-tender, BS normal, No masses or organomegaly EXTREMITIES: Extremities normal, no deformities, edema, clubbing or skin discoloration. Good capillary refill. NEURO: Grossly normal cognition, motor function, and cranial nerves III-XII PULSES: 2+ radial, 2+ posterial tibial, 2+ dorsalis pedis Lines, Drains, and Airways Line Peripheral 08/20/19 1504 Admission to Hospital Short Right Antecubital 20 Gauge less than 1 day Reviewed lines, drains, AND airways. Need to be continued DATA: Diagnostic tests reviewed for today's visit: Most recent labs and imaging results. Most recent EKG Assessment/Plan Principal Problem: Anemia POA: Yes Assessment AND Plan: due to UGI bleed. On protonix drip. Will change to IV BID per GI bleed protocol. Clear liquid diet. No aspirin or nsaids at this time. Transfuse <7. Patient is symptomatic with exertion. When transferred to bed upon arrival his HR was 140s and SBP > 200. GI consult. Blood product consent signed and on chart. Active Problems: GI bleed POA: Yes Assessment AND Plan: upper likely aspirin induced. GI to see. Clear liquids. H/H every 6 hours and transfuse <7. Symptomatic. Chest pain POA: Yes Assessment AND Plan: cycle troponins and monitor on tele. Is 2 months out from cabg and bioprosthetic heart valve. Shortness of breath POA: Yes Assessment AND Plan: due to anemia. CXR without effusion. Cycle troponins. Transfuse as needed. Essential hypertension POA: Yes Assessment AND Plan: cont with home meds. Hold diuretic as with some MAURO due to bleeding. Hyperlipidemia POA: Yes Assessment AND Plan: cont with rx. S/P AVR POA: Yes Assessment AND Plan: Left bundle branch block POA: Yes Assessment AND Plan: chronic. Coronary artery disease POA: Yes Assessment AND Plan: S/P 2 vessel bypass. Asa held due to bleeding. Cont with all other medications. Atrial fibrillation (HCC) POA: Yes Assessment AND Plan: previously was on amiodarone and bb. Now just bb and this was lowered recently due to bradycardia. Monitor on tele. Resolved Problems: * No resolved hospital problems. * Medication and Non-Pharmacologic VTE Prophylaxis/Anticoagu lants VTE Prophylaxis: Contraindicated active bleeding Disposition: Home with [facility] Plan of care discussed with: Patient, Family/Significant Other: sister, Emergeny Room Physician and RN SIGNATURE: Dunia Crawford DO PATIENT NAME: Elias Shah DATE: August 20, 2019 TIME: 3:39 PM PAGER/CONTACT #: [phone] Roger Han MD 08/21/2019 9:06 AM Addendum DEPARTMENT OF HOSPITAL MEDICINE PROGRESS NOTE SERVICE DATE: 08/21/2019 SERVICE TIME: 9:00 AM Hospital Medicine/Primary Attending: Roger Han MD NIGHT AND WEEKEND COVERAGE: After 7pm please page [phone] CHIEF COMPLAINT: Upper back pain SUBJECTIVE: Patient complains of upper back pain across the upper back and lower shoulder area. It does not radiate down his arms. He is not having any numbness or tingling in his speech. Denies any trouble breathing. No anterior chest pain. His abdominal discomfort is improved. He has not had any hematemesis since admission. No dizziness or palpitations. OBJECTIVE: PHYSICAL EXAM: BP 158/64 Pulse 64 Temp (Src) 98.4 (Oral) Resp 20 Ht 6' 0 (1.83m) Wt 198 lb 10.2 oz (90.1kg) SpO2 100% BMI 26.93 kg/(m2). O2 Therapy: Nasal Cannula, Liters: 2 General - AANDOx3, NAD, Calm CV - RRR S1 S2, No M/R/G RESP - CTA B/L No wheezes, ronchi, rales ABD - soft, NT, ND +BS EXT - no gross joint deformity, no clubbing, cyanosis, edema. Upper back is slightly tender over the upper thoracic and lower cervical paravertebral musculature. No spasm. He has a small sebaceous cyst which is uninflamed. This is located in the midline in his upper back. MEDICATIONS: Current Facility-Administered Medications Medication Dose Route Frequency - acetaminophen 650 mg tab(s) (TYLENOL) 650 mg ORAL q 4 H PRN - atorvastatin 40 mg tab(s) (LIPITOR) 40 mg ORAL AT BEDTIME - losartan 50 mg tab(s) (COZAAR) 50 mg ORAL BID - metoprolol tartrate (short acting) 25 mg tab(s) (LOPRESSOR) 25 mg ORAL BID - tamsulosin ER 0.4 mg cap(s) (FLOMAX) 0.4 mg ORAL DAILY - NaCl 0.9% 3-5 mL 3-5 mL INTRAVENOUS q 12 H - NaCl 0.9% iv infusion 75 mL/hr INTRAVENOUS CONTINUOUS - NaCl 0.9% 2-10 mL 2-10 mL INTRAVENOUS q 12 H - pantoprazole 40 mg injection (PROTONIX) 40 mg INTRAVENOUS q 12 H Followed by - [START ON 08/24/2019] pantoprazole 40 mg injection (PROTONIX) 40 mg INTRAVENOUS DAILY (6 AM) - morphine 4 mg injection 4 mg INTRAVENOUS q 4 H PRN DATA: Diagnostic tests reviewed for today's visit: CBC: Recent Labs 08/21/19317 WBC 5.90 RBC 2.85* HB 8.0* HCT 25.0* PLT 171 MCV 87.7 MCH 28.1 MPV 10.1 RDW 15.0* CMP: Recent Labs 08/21/19317 NA 142 K 3.4* CHLOR 108* CO2 26 BUN 40* CREAT 1.18* GLUC 92 TPROT 6.0* CA 8.0* MG 1.7 TBILI 0.5 ALKPHOS 63 ALT 10* AST 12* ANION 11 MG/PHOS: Recent Labs 08/21/19 0318 MG 1.7 Assessment/Plan Principal Problem: Anemia POA: Yes Assessment AND Plan: due to UGI bleed. On protonix drip. Will change to IV BID per GI bleed protocol. Clear liquid diet. No aspirin or nsaids at this time. Transfuse <7. Patient is symptomatic with exertion. When transferred to bed upon arrival his HR was 140s and SBP > 200. GI consult. Blood product consent signed and on chart. ? Active Problems: GI bleed POA: Yes Assessment AND Plan: upper likely aspirin induced. GI to see. Clear liquids. H/H every 6 hours and transfuse <7. Symptomatic. ? Chest pain POA: Yes Assessment AND Plan: cycle troponins and monitor on tele. Is 2 months out from cabg and bioprosthetic heart valve. ? Shortness of breath POA: Yes Assessment AND Plan: due to anemia. CXR without effusion. Cycle troponins. Transfuse as needed. ? Essential hypertension POA: Yes Assessment AND Plan: cont with home meds. Hold diuretic as with some MAURO due to bleeding. ? Hyperlipidemia POA: Yes Assessment AND Plan: cont with rx. ? S/P AVR POA: Yes Assessment AND Plan: ? Left bundle branch block POA: Yes Assessment AND Plan: chronic. ? Coronary artery disease POA: Yes Assessment AND Plan: S/P 2 vessel bypass. Asa held due to bleeding. Cont with all other medications. ? Atrial fibrillation (HCC) POA: Yes Assessment AND Plan: previously was on amiodarone and bb. Now just bb and this was lowered recently due to bradycardia. Monitor on tele. Hypokalemia. This will be supplemented IV. VTE Prophylaxis: Pneumatic Compression Device Disposition: Home Plan of care discussed with: Patient SIGNATURE: Roger Han MD PATIENT NAME: Elias Shah DATE: August 21, 2019 TIME: 9:00 AM PAGER/CONTACT #: [phone] Previous Version Niesha Musa MD 08/21/2019 12:31 PM Signed CONSULT: GASTRENTEROLOGY SERVICE SERVICE DATE: 08/21/2019 SERVICE TIME: 12:18 PM REASON FOR CONSULT: GI bleeding REQUESTING PHYSICIAN: PRIMARY CARE PHYSICIAN: Mal Main MD Subjective Mr. Shah is a 79 year old male who presents for SOB and near syncope and noted to have anemia. Patient describe two melanotic stools. Also describes some epigastric abdominal pain, pain is radiating to back; patient thinks this from laying in bed. No nausea or vomiting. No history NSAID's, no previous history of EGD but colonoscopy out side last year but patient cannot recall details. Recent CABG 3 months ago on ASA. Hx o Afib, bio prosthetic aortic valve. FUNCTIONAL STATUS: Partially dependent PAST MEDICAL HISTORY Diagnosis Date - Acute kidney injury (HCC) - Acute metabolic encephalopathy - Anemia - Aortic stenosis - Atrial fibrillation (HCC) - Bowel obstruction (HCC) - Coronary artery disease - Hyperlipidemia - Hypertension - Left bundle branch block - Mitral valve annular calcification - Prolonged QT interval - S/P AVR 07/04/[address] [facility] Trifecta pericardial prosthesis at [facility] by Dr. 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 Rivers - Vitamin D deficiency PAST SURGICAL HISTORY Procedure Laterality Date - ATRIAL APPENDAGE LIGATION 07/04/2019 35 mm AtriCure clip at [facility] by Dr. Rivers - CABG (2) VEIN GRAFTS AND ARTERIAL GRAFT(S 07/04/2019 at [facility] by Dr. Rivers - REPAIR UMBILICAL HERNIA 12/04/2018 after bowel perforation done at [facility] Dr. Young - REPLAC AORT VALV PROSTH VALV 07/04/[address] Cristhian Trifecta pericardial prosthesis at [facility] by Dr. Rivers FAMILY HISTORY Problem Relation Age of Onset - Osteoporosis Mother - Heart Mother - Cancer Father lung Social History Tobacco Use - Smoking status: Former Smoker Packs/day: 1.00 Years: 5.00 Pack years: 5.00 Last attempt to quit: 11/23/1954 Years since quittin.7 - Smokeless tobacco: Never Used Substance Use Topics - Alcohol use: Not Currently Comment: social - Drug use: Never Medications Prior to Admission: losartan (COZAAR) 50 mg tablet Take 50 mg by mouth twice daily. Disp: Rfl: Ferrous Fumarate-Iron Ps Cmplx 162-115.2 (106) mg cap Take 1 tablet by mouth once daily. Disp: Rfl: ascorbic acid, vitamin C, (VITAMIN C) 500 mg tablet Take 500 mg by mouth once daily. Disp: Rfl: furosemide (LASIX) 20 mg tablet Take 1 tablet by mouth once daily for 7 days. Disp: 7 tablet Rfl: 0 metoprolol tartrate, short acting, (LOPRESSOR) 25 mg tablet Take 2 tablets by mouth twice daily. (Patient taking differently: Take 25 mg by mouth twice daily. ) Disp: 60 tablet Rfl: 5 guaifen/dextromethorp coronado/pe (GUAIFEN DM ORAL) Take by mouth. Disp: Rfl: Taking aspirin 81 mg chewable tablet Take 2 tablets by mouth once daily. Disp: Rfl: Taking atorvastatin (LIPITOR) 40 mg tablet Take 1 tablet by mouth daily at bedtime. Disp: Rfl: Taking polyethylene glycol 3350 (MIRALAX, GLYCOLAX) 17 gram packet Take 1 Packet by mouth once daily as needed. Disp: Rfl: Taking tamsulosin ER (FLOMAX) 0.4 mg cap Take 0.4 mg by mouth once daily. Disp: Rfl: 08/19/2019 at 2000 oxyCODONE ir (OXYIR) 5 mg capsule Take 5 mg by mouth every 6 hours as needed. Disp: Rfl: Taking acetaminophen (TYLENOL) 325 mg tablet Take 2 tablets by mouth every 4 hours as needed. Disp: Rfl: Taking Current Facility-Administered Medications Medication Dose Route Frequency - acetaminophen 650 mg tab(s) (TYLENOL) 650 mg ORAL q 4 H PRN - atorvastatin 40 mg tab(s) (LIPITOR) 40 mg ORAL AT BEDTIME - losartan 50 mg tab(s) (COZAAR) 50 mg ORAL BID - metoprolol tartrate (short acting) 25 mg tab(s) (LOPRESSOR) 25 mg ORAL BID - tamsulosin ER 0.4 mg cap(s) (FLOMAX) 0.4 mg ORAL DAILY - NaCl 0.9% 3-5 mL 3-5 mL INTRAVENOUS q 12 H - NaCl 0.9% 2-10 mL 2-10 mL INTRAVENOUS q 12 H - pantoprazole 40 mg injection (PROTONIX) 40 mg INTRAVENOUS q 12 H Followed by - [START ON 08/24/2019] pantoprazole 40 mg injection (PROTONIX) 40 mg INTRAVENOUS DAILY (6 AM) - morphine 4 mg injection 4 mg INTRAVENOUS q 4 H PRN - potassium chloride iv piggyback 20 mEq/100 mL 20 mEq INTRAVENOUS ONCE - HYDROcodone 5 mg - acetaminophen 325 mg tablet (NORCO) 1 tablet ORAL q 4 H PRN Allergies As of Date: 08/20/2019 (No Known Allergies) Fully Assessed 08/20/2019 COMPLETE REVIEW OF SYSTEMS: PAIN ASSESSMENT: Negative for pain, history of chronic pain, or current treatment for a chronic pain condition. GENERAL: No weight loss, malaise or fevers HEENT: Negative for frequent or significant headaches RESPIRATORY: Negative for cough, hemoptysis, wheezing, COPD, dyspnea or shortness of breath CARDIOVASCULAR: Negative for chest pain, leg swelling, hypertension, CHF or palpitations GI: See HPI Objective PHYSICAL EXAM: GENERAL: Alert, no distress, cooperative EYES: Negatives conjunctivae and sclerae normal LUNGS: Lungs clear to auscultation, Good diaphragmatic excursion CARDIAC: Normal S1 and S2; no rubs, murmurs, or gallops ABDOMEN: Abdomen soft, non-tender, BS normal, No masses or organomegaly EXTREMITIES: Normal exam of the extremities Patient Vitals for the past 24 hrs: BP Temp Temp src Pulse Resp SpO2 Height Weight 08/21/19 0941 149/61 ? ? 63 ? 08/21/19 0630 ? 90.1 kg (198 lb 10.2 oz) 08/21/19 0320 158/64 36.9 ?C (98.4 ?F) Oral 64 20 100 % ? ? 08/21/19 0100 157/68 37.5 ?C (99.5 ?F) Oral 67 20 100 % ? ? 08/20/19 2108 145/66 37.2 ?C (99 ?F) Oral 68 18 100 % ? ? 08/20/19 1953 145/64 37 ?C (98.6 ?F) Oral 83 20 100 % ? ? 08/20/19 1900 184/66 36.5 ?C (97.7 ?F) ? 92 18 100 % ? ? 08/20/19 1852 148/60 37 ?C (98.6 ?F) Oral 91 20 ? ? ? 08/20/19 1844 161/66 ? ? 91 20 ? ? ? 08/20/19 1836 166/69 36.9 ?C (98.4 ?F) Oral 103 20 100 % ? ? 08/20/19 1503 152/71 ? ? 86 20 ? ? ? 08/20/19 1437 ? 182.9 cm (6') 90.3 kg (199 lb) 08/20/19 1430 (!) 231/82 36.9 ?C (98.4 ?F) Oral (!) 140 22 99 % ? ? Body mass index is 26.94 kg/m?. DATA: Diagnostic tests reviewed for today's visit: Most recent labs and imaging results. CBC, Coags, BMP, Mg, Phos Recent Labs 08/21/19 0318 08/20/197 08/20/19 1656 WBC 5.90 -- -- HB 8.0* 7.1* 6.3* HCT 25.0* 23.3* 20.6* PLT 171 -- -- NA 142 -- -- K 3.4* -- -- CHLOR 108* -- -- CO2 26 -- -- BUN 40* -- -- CREAT 1.18* -- -- GLUC 92 -- -- CA 8.0* -- -- MG 1.7 -- -- Liver Function, Amylase, AND Lipase Recent Labs 08/21/19 0318 TPROT 6.0* ALB 2.6* ALT 10* AST 12* ALKPHOS 63 TBILI 0.5 Impression/Recommenda tions Principal Problem: Anemia POA: Yes Assessment AND Plan: most likely UGI bleeding. Will schedule EGD AM. On PPI. Monitor CBC Active Problems: Chest pain POA: Yes Assessment AND Plan: GI bleed POA: Yes Assessment AND Plan: see above Shortness of breath POA: Yes Assessment AND Plan: Essential hypertension POA: Yes Assessment AND Plan: Hyperlipidemia POA: Yes Assessment AND Plan: S/P AVR POA: Yes Assessment AND Plan: Left bundle branch block POA: Yes Assessment AND Plan: Hypertension POA: Yes Assessment AND Plan: Coronary artery disease POA: Yes Assessment AND Plan: Atrial fibrillation (HCC) POA: Yes Assessment AND Plan: Resolved Problems: * No resolved hospital problems. * SIGNATURE: Niesha Musa MD PATIENT NAME: Elias Shah DATE: August 21, 2019 TIME: 12:18 PM PAGER: [phone] Rica Garcia, RN, RN 08/22/2019 12:42 AM Signed Nursing Progress Note Patient Name: Elias Shah Patient Location: [id number] Daily Note: 8122: Sound text paged, BP 170/62 and HR 50, pt not symptomatic. 2354: Dr. Rubi called back ordered 50mg PO Hydralazine. Will continue to monitor. This note was completed by: Rica Garcia, RN Roger Han MD 08/22/2019 2:45 PM Addendum DEPARTMENT OF HOSPITAL MEDICINE PROGRESS NOTE SERVICE DATE: 08/22/2019 SERVICE TIME: 8:34 AM Hospital Medicine/Primary Attending: Roger Han MD NIGHT AND WEEKEND COVERAGE: After 7pm please page [phone] CHIEF COMPLAINT: UGIB SUBJECTIVE: Patient has had no further GI bleeding. He is going for an endoscopy later this morning. He is not having any dizziness, chest pain, shortness of breath, melena, hematochezia, or hematemesis. OBJECTIVE: PHYSICAL EXAM: BP 159/66 Pulse 64 Temp (Src) 98.4 (Oral) Resp 16 Ht 6' 0 (1.83m) Wt 198 lb 13.7 oz (90.2kg) SpO2 100% BMI 26.96 kg/(m2). O2 Therapy: Nasal Cannula, Liters: 1 General - AANDOx3, NAD, Calm CV - RRR S1 S2, No M/R/G RESP - CTA B/L No wheezes, ronchi, rales ABD - soft, NT, ND +BS EXT - no gross joint deformity, no clubbing, cyanosis, edema MEDICATIONS: Current Facility-Administered Medications Medication Dose Route Frequency - acetaminophen 650 mg tab(s) (TYLENOL) 650 mg ORAL q 4 H PRN - atorvastatin 40 mg tab(s) (LIPITOR) 40 mg ORAL AT BEDTIME - losartan 50 mg tab(s) (COZAAR) 50 mg ORAL BID - metoprolol tartrate (short acting) 25 mg tab(s) (LOPRESSOR) 25 mg ORAL BID - tamsulosin ER 0.4 mg cap(s) (FLOMAX) 0.4 mg ORAL DAILY - NaCl 0.9% 3-5 mL 3-5 mL INTRAVENOUS q 12 H - NaCl 0.9% 2-10 mL 2-10 mL INTRAVENOUS q 12 H - pantoprazole 40 mg injection (PROTONIX) 40 mg INTRAVENOUS q 12 H Followed by - [START ON 08/24/2019] pantoprazole 40 mg injection (PROTONIX) 40 mg INTRAVENOUS DAILY (6 AM) - morphine 4 mg injection 4 mg INTRAVENOUS q 4 H PRN - HYDROcodone 5 mg - acetaminophen 325 mg tablet (NORCO) 1 tablet ORAL q 4 H PRN - ondansetron (PF) 4 mg injection (ZOFRAN) 4 mg INTRAVENOUS ONCE DATA: Diagnostic tests reviewed for today's visit: CBC: Recent Labs 08/22/19 0625 WBC 4.52 RBC 2.75* HB 7.6* HCT 25.0* PLT 147 MCV 90.9 MCH 27.6 MPV 9.9 RDW 14.9* CMP: Recent Labs 08/22/19 0625 NA 140 K 3.6 CHLOR 109* CO2 28 BUN 21* CREAT 1.10 GLUC 91 CA 8.2* ANION 7* Assessment/Plan Principal Problem: ??Anemia due to acute blood loss POA: Yes ?Assessment AND?Plan: due to UGI bleed. ?On protonix IV. EGD today. ? Active Problems: ??GI bleed POA: Yes ?Assessment AND?Plan: upper likely aspirin induced. ?EGD today ? ??Chest pain POA: Yes ?Assessment AND?Plan: troponins negative ? ??Shortness of breath POA: Yes ?Assessment AND?Plan: due to anemia. ?Essential hypertension POA: Yes ?Assessment AND?Plan: cont with home meds. ?Hold diuretic as with some MAURO due to bleeding. ? ??Hyperlipidemia POA: Yes ?Assessment AND?Plan: cont with rx. ? ??S/P AVR POA: Yes ?Assessment AND?Plan: ?Left bundle branch block POA: Yes ?Assessment AND?Plan: chronic. ? ??Coronary artery disease POA: Yes ?Assessment AND?Plan: S/P 2 vessel bypass. ?Asa held due to bleeding. Cont with all other medications. ? ??Atrial fibrillation (HCC) POA: Yes ?Assessment AND?Plan: previously was on amiodarone and bb. ??Now just bb and this was lowered recently due to bradycardia. ?Monitor on tele. ? Hypokalemia. resolved VTE Prophylaxis: Pneumatic Compression Device Disposition: Home Plan of care discussed with: Patient SIGNATURE: Roger Han MD PATIENT NAME: Elias Shah DATE: August 22, 2019 TIME: 8:34 AM PAGER/CONTACT #: [phone] Previous Version Serene Ramosmerritt Amaay 08/22/2019 11:08 AM Signed CARE MANAGEMENT PROGRESS NOTE SERVICE DATE: 08/22/2019 SERVICE TIME: 1015 LOS: 2 days IM letter given to patient on [id number]. SIGNATURE: Serene Ramosmerritt Amaya PATIENT NAME: Elias Shah DATE: August 22, 2019 TIME: 11:07 AM PAGER/CONTACT #: [phone] WILLIAM Belcher, RD 08/22/2019 12:20 PM Signed NUTRITION THERAPY INITIAL ASSESSMENT SERVICE DATE: 08/22/2019 SERVICE TIME: 11:00 AM RECOMMENDED MALNUTRITION DIAGNOSIS: NO MALNUTRITION IDENTIFIED NUTRITION CARE PLAN: No nutrition diagnosis at this time Intervention: -Encouraged pt to continue with adequate oral intake -Dietitian to monitor diet progression and goal for diet: Heart Healthy Monitor and Evaluation: Goal: Meet >75% of estimated needs Monitor fluid/electrolyte balance Monitor labs, I/Os, vital signs, weight Monitor diet progression Discharge Nutrition Recommendations: Diet: Heart Healthy Reason for Assessment: prior noted moderate malnutrition in context of acute illness identified on 07/11/19 by JENNIFER. MST of 0 on this admission. Per HPI: Thi is 79 year old male who presents with weakness, BARDALES, melena. Pt having endoscopy today 08/22/19, and has had no further GI bleeding. Patient was in [facility] 07/04/19-07/13/19 for CABG with AVR on 07/04/19. ACTIVE PROBLEM LIST Abnormal Electrocardiogram (Ecg) (Ekg) Anemia, Unspecified Aortic Valve Stenosis Atrial Fibrillation With Rapid Ventricular Response (Hcc) Mauro (Acute Kidney Injury) (Hcc) Acute Metabolic Encephalopathy Vitamin D Deficiency Small Bowel Obstruction (Hcc) Paroxysmal Atrial Fibrillation (Hcc) Lbbb (Left Bundle Branch Block) Incarcerated Umbilical Hernia Declining Functional Status Essential Hypertension Hyperlipidemia Impaired Cognition Aortic Stenosis Malnutrition of Moderate Degree (Hcc) S/P Avr (Aortic Valve Replacement) S/P Cabg X 2 Acute Encephalopathy Coronary Artery Disease of [place] Artery of [place] Heart With Stable Angina Pectoris (Hcc) S/P Avr Left Bundle Branch Block Hypertension Coronary Artery Disease Atrial Fibrillation (Hcc) Anemia Chest Pain Shortness of Breath GI Bleed PAST MEDICAL HISTORY Diagnosis Date - Acute kidney injury (HCC) - Acute metabolic encephalopathy - Anemia - Aortic stenosis - Atrial fibrillation (HCC) - Bowel obstruction (HCC) - Coronary artery disease - Hyperlipidemia - Hypertension - Left bundle branch block - Mitral valve annular calcification - Prolonged QT interval - S/P AVR 07/04/[address] [employer]ian Trifecta pericardial prosthesis at [facility] by Dr. 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 Rivers - Vitamin D deficiency PAST SURGICAL HISTORY Procedure Laterality Date - ATRIAL APPENDAGE LIGATION 07/04/2019 35 mm AtriCure clip at [facility] by Dr. Rivers - CABG (2) VEIN GRAFTS AND ARTERIAL GRAFT(S 07/04/2019 at [facility] by Dr. Rivers - REPAIR UMBILICAL HERNIA 12/04/2018 after bowel perforation done at [facility] Dr. Young - REPLAC AORT VALV PROSTH VALV 07/04/[address] Cristhian Trifecta pericardial prosthesis at [facility] by Dr. Rivers Social History Socioeconomic History Marital status: Spouse name: Not on file Number of children: Not on file Years of education: Not on file Highest education level: Not on file Occupational History Not on file Social Needs Financial resource strain: Not on file Food insecurity: Worry: Not on file Inability: Not on file Transportation needs: Medical: Not on file Non-medical: Not on file Tobacco Use Smoking status: Former Smoker Packs/day: 1.00 Years: 5.00 Pack years: 5 Quit date: 11/23/1954 Years since quittin.7 Smokeless tobacco: Never Used Substance and Sexual Activity Alcohol use: Not Currently Comment: social Drug use: Never Sexual activity: Not on file Lifestyle Physical activity: Days per week: Not on file Minutes per session: Not on file Stress: Not on file Relationships Social connections: Talks on phone: Not on file Gets together: Not on file Attends alevism service: Not on file Active member of club or organization: Not on file Attends meetings of clubs or organizations: Not on file Relationship status: Not on file Intimate partner violence: Fear of current or ex partner: Not on file Emotionally abused: Not on file Physically abused: Not on file Forced sexual activity: Not on file Other Topics Concerns: Service: No Blood Transfusions: Yes Caffeine Concern: No Occupational Exposure: Not Asked Hobby Hazards: Not Asked Sleep Concern: No Stress Concern: No Weight Concern: Not Asked Special Diet: Yes no restrictions Back Care: Not Asked Exercise: No sedentary Bike Helmet: Not Asked Seat Belt: Yes Self-Exams: Yes Social History Narrative Not on file Orders Placed This Encounter DIET LIQUID Standing Status: Standing Number of Occurrences: 1 Order Specific Question: Liquid Diet Answer: CLEAR LIQUID Order Specific Question: Feeding instructions for nursing Answer: No reds Lines and Drains: Peripheral 08/20/19 1504 Admission to Hospital Short Right Antecubital 20 Gauge (Active) Nutritional Intake Prior to Admission: >75% estimated energy needs over the past 1 month(s). Per pt reports has been eating well till this am when not allowed anything due to having EGD this am. Pt reports has good appetite. GI symptoms: none Nutrition Abdominal Exam:, abdomen is soft and bowel sounds are normal per clinical documentation. ANTHROPOMETRICS Height: 182.9 cm (6') Admission Weight: 90.3 kg (199 lb) Current Weight: 90.2 kg (198 lb 13.7 oz) Body mass index is 26.97 kg/m?. overweight Weight has decreased by 5.9 kg over 1 months representing 6.1 % weight change clinically significant but noted most likely decrease with change in fluid shifts from edema -UBW per patient is 200 lbs Last Wt 08/22/19 : 90.2 kg (198 lb 13.7 oz)-bed-no edema noted 08/12/19 : 90.3 kg (199 lb), office visit-vascular 07/28/19 : 93.4 kg (206 lb),office visit-vascular 07/13/19 : 96.1 kg (211 lb 12.8 oz)-previous admission-standing and noted with 2+ BLE Edema and 1+ BUE Edema 06/27/19 : 90.7 kg (200 lb) 05/25/19 : 89.4 kg (197 lb) 05/11/19 : 88.5 kg (195 lb) 05/11/19 : 88.8 kg (195 lb 12.8 oz) 04/13/19 : 88.9 kg (196 lb) [place] Body Weight: 80.9kg Resting Metabolic Rate: 1650 Estimated kilocalorie needs: 2667-9522 kilocalories determined by 25-30 kcal/kg Estimated protein needs: 97-105 grams determined by 1.2-1.3 g/kg [place] weight Estimated fluid needs: 7170-5496 milliliters based on 1 mL per kcal NUTRITION FOCUSED PHYSICAL EXAM: Subcutaneous Fat Loss Orbital No fat loss Triceps No fat loss Mid-axillary at the iliac crest Unable to determine at this time Muscle Loss Locations: Temporalis No muscle loss Pectoralis No muscle loss Deltoids No muscle loss Interosseous No muscle loss Latissimus dorsi, trapezius Unable to determine at this time Quadriceps Unable to determine at this time Gastrocnemius Unable to determine at this time Potential micronutrient deficiency revealed in: No deficiency identified Edema: No Ascites: No Assessment of Functional Status: Functional capacity is unrelated to nutrition status Temperature Max in 24 hours: Temp (24hrs), Av.6 ?C (97.8 ?F), Min:36.3 ?C (97.4 ?F), Max:36.9 ?C (98.4 ?F) BP 158/65 Pulse (!) 55 Temp 36.8 ?C (98.2 ?F) (Oral) Resp 18 Ht 182.9 cm (6') Wt 90.2 kg (198 lb 13.7 oz) SpO2 99% BMI 26.97 kg/m? Recent Labs 08/22/19 0625 08/21/19 0318 GLUC 91 -- 92 BUN 21* -- 40* CREAT 1.10 -- 1.18* NA 140 -- 142 K 3.6 -- 3.4* CHLOR 109* -- 108* CO2 28 -- 26 ALB -- -- 2.6* HB 7.6* < > 8.0* HCT 25.0* -- 25.0* WBC 4.52 -- 5.90 MG -- -- 1.7 < > = values in this interval not displayed. Potential Signs of Inflammation: hypoalbuminemia and chronic condition ALLERGIES No Known Allergies Current Facility-Administered Medications Medication Dose Route Frequency - [JAN Hold due to Transfer] morphine 4 mg injection 4 mg INTRAVENOUS q 4 H PRN - [JAN Hold due to Transfer] HYDROcodone 5 mg - acetaminophen 325 mg tablet (NORCO) 1 tablet ORAL q 4 H PRN - [MAR Hold due to Transfer] acetaminophen 650 mg tab(s) (TYLENOL) 650 mg ORAL q 4 H PRN - [MAR Hold due to Transfer] atorvastatin 40 mg tab(s) (LIPITOR) 40 mg ORAL AT BEDTIME - [MAR Hold due to Transfer] losartan 50 mg tab(s) (COZAAR) 50 mg ORAL BID - [MAR Hold due to Transfer] metoprolol tartrate (short acting) 25 mg tab(s) (LOPRESSOR) 25 mg ORAL BID - [MAR Hold due to Transfer] tamsulosin ER 0.4 mg cap(s) (FLOMAX) 0.4 mg ORAL DAILY - [MAR Hold due to Transfer] NaCl 0.9% 3-5 mL 3-5 mL INTRAVENOUS q 12 H - [MAR Hold due to Transfer] NaCl 0.9% 2-10 mL 2-10 mL INTRAVENOUS q 12 H - [MAR Hold due to Transfer] pantoprazole 40 mg injection (PROTONIX) 40 mg INTRAVENOUS q 12 H Date 08/21/19 07 - 08/22/19 0659 08/22/19 07 - 08/23/19 0659 Shift 6856-0667 2901-8562 6656-6767 24 Hour Total 2576-6357 3690-5453 0477-2878 24 Hour Total INTAKE PO 021 369 4672 PO 895 933 8001 Shift Total 937 340 2741 OUTPUT Urine 200 1545 1745 Void (ml) 200 1545 1745 # of BMs Number of BMs 1 x 1 x Shift Total 200 1545 1745 Weight (kg) 90.1 90.1 90.2 90.2 90.2 90.2 90.2 90.2 Surgical Incision 08/20/19 1506 Chest (Active) Dressing Status None: Open to Air 08/21/2019 11:42 PM Frequency of Dressing Change As Needed 08/20/2019 3:04 PM Incision Closures None 08/21/2019 11:42 PM Drainage Description None 08/21/2019 11:42 PM Drainage Amount None 08/21/2019 11:42 PM Edges Intact 08/21/2019 11:42 PM Hematoma No 08/21/2019 11:42 PM Number of days: 1 Vitamin and Mineral Labs in the past year: Recent Labs 08/15231904/22/19 1359 B12 227 -- TIBC -- 373 FE -- 38* EDDI -- 42.3 MNT Billing Type: Initial Assess/15 min 4 units SIGNATURE: WILLIAM Belcher PATIENT NAME: Elias Shah DATE: August 22, 2019 TIME: 12:02 PM PAGER: [phone] Marlon Womack MD 08/22/2019 12:43 PM Signed ANESTHESIOLOGY DAY OF SURGERY NOTE SERVICE DATE: 08/22/2019 SERVICE TIME: 12:40 PM : 1940 Procedure(s) (LRB): EGD (Left) Surgeon(s): Zora Peter Estimated body mass index is 26.97 kg/m? as calculated from the following: Height as of this encounter: 182.9 cm (6'). Weight as of this encounter: 90.2 kg (198 lb 13.7 oz). Most recent hematocrit and potassium results: Hematocrit (I-STAT) 25.0 08/22/2019 Potassium (I-STAT) 3.6 08/22/2019 ANES DOS/PREOP NOTE: Vitals: 08/22/19 0130 08/22/19 0600 08/22/19 0813 08/22/19 1107 BP: 140/55 159/66 158/65 Pulse: 62 64 (!) 55 Resp: 16 16 18 Temp: 36.4 ?C (97.5 ?F) 36.9 ?C (98.4 ?F) 36.8 ?C (98.2 ?F) TempSrc: Oral Oral Oral SpO2: 100% 100% 99% Weight: 90.2 kg (198 lb 13.7 oz) Height: ACTIVE PROBLEM LIST Abnormal Electrocardiogram (Ecg) (Ekg) Anemia, Unspecified Aortic Valve Stenosis Atrial Fibrillation With Rapid Ventricular Response (Hcc) Mauro (Acute Kidney Injury) (Hcc) Acute Metabolic Encephalopathy Vitamin D Deficiency Small Bowel Obstruction (Hcc) Paroxysmal Atrial Fibrillation (Hcc) Lbbb (Left Bundle Branch Block) Incarcerated Umbilical Hernia Declining Functional Status Essential Hypertension Hyperlipidemia Impaired Cognition Aortic Stenosis S/P Cabg X 2 Acute Encephalopathy Coronary Artery Disease of [place] Artery of [place] Heart With Stable Angina Pectoris (Hcc) S/P Avr Left Bundle Branch Block Hypertension Coronary Artery Disease Atrial Fibrillation (Hcc) Anemia Chest Pain Shortness of Breath GI Bleed PAST MEDICAL HISTORY Diagnosis Date - Acute kidney injury (HCC) - Acute metabolic encephalopathy - Anemia - Aortic stenosis - Atrial fibrillation (HCC) - Bowel obstruction (HCC) - Coronary artery disease - Hyperlipidemia - Hypertension - Left bundle branch block - Mitral valve annular calcification - Prolonged QT interval - S/P AVR 07/04/[address] Crist[employer]ian Trifecta pericardial prosthesis at [facility] by Dr. 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 Rivers - Vitamin D deficiency PAST SURGICAL HISTORY Procedure Laterality Date - ATRIAL APPENDAGE LIGATION 07/04/2019 35 mm AtriCure clip at [facility] by Dr. Rivers - CABG (2) VEIN GRAFTS AND ARTERIAL GRAFT(S 07/04/2019 at [facility] by Dr. Rivers - REPAIR UMBILICAL HERNIA 12/04/2018 after bowel perforation done at [facility] Dr. Young - REPLAC AORT VALV PROSTH VALV 07/04/[address] Cristhian Trifecta pericardial prosthesis at [facility] by Dr. Rivers FAMILY HISTORY Problem Relation Age of Onset - Osteoporosis Mother - Heart Mother - Cancer Father lung Social History: Social History Tobacco Use - Smoking status: Former Smoker Packs/day: 1.00 Years: 5.00 Pack years: 5.00 Last attempt to quit: 11/23/1954 Years since quittin.7 - Smokeless tobacco: Never Used Substance Use Topics - Alcohol use: Not Currently Comment: social - Drug use: Never No current facility-administered medications on file prior to encounter. Current Outpatient Medications on File Prior to Encounter: losartan (COZAAR) 50 mg tablet Take 50 mg by mouth twice daily. Ferrous Fumarate-Iron Ps Cmplx 162-115.2 (106) mg cap Take 1 tablet by mouth once daily. ascorbic acid, vitamin C, (VITAMIN C) 500 mg tablet Take 500 mg by mouth once daily. furosemide (LASIX) 20 mg tablet Take 1 tablet by mouth once daily for 7 days. metoprolol tartrate, short acting, (LOPRESSOR) 25 mg tablet Take 2 tablets by mouth twice daily. (Patient taking differently: Take 25 mg by mouth twice daily. ) guaifen/dextromethorp coronado/pe (GUAIFEN DM ORAL) Take by mouth. aspirin 81 mg chewable tablet Take 2 tablets by mouth once daily. atorvastatin (LIPITOR) 40 mg tablet Take 1 tablet by mouth daily at bedtime. polyethylene glycol 3350 (MIRALAX, GLYCOLAX) 17 gram packet Take 1 Packet by mouth once daily as needed. tamsulosin ER (FLOMAX) 0.4 mg cap Take 0.4 mg by mouth once daily. oxyCODONE ir (OXYIR) 5 mg capsule Take 5 mg by mouth every 6 hours as needed. acetaminophen (TYLENOL) 325 mg tablet Take 2 tablets by mouth every 4 hours as needed. Current Facility-Administered Medications Medication Dose Route Frequency Provider Last Rate Last Dose - [MAR Hold due to Transfer] morphine 4 mg injection 4 mg INTRAVENOUS q 4 H PRN Roger Han 4 mg at 08/21/19 0937 - [MAR Hold due to Transfer] HYDROcodone 5 mg - acetaminophen 325 mg tablet (NORCO) 1 tablet ORAL q 4 H PRN Roger Han 1 tablet at 08/21/19 2018 - [MAR Hold due to Transfer] acetaminophen 650 mg tab(s) (TYLENOL) 650 mg ORAL q 4 H PRN [place] 650 mg at 08/21/19 0113 - [MAR Hold due to Transfer] atorvastatin 40 mg tab(s) (LIPITOR) 40 mg ORAL AT BEDTIME Dunia [place] 40 mg at 08/21/192003 - [MAR Hold due to Transfer] losartan 50 mg tab(s) (COZAAR) 50 mg ORAL BID Dunia [place] 50 mg at 08/22/19 0840 - [MAR Hold due to Transfer] metoprolol tartrate (short acting) 25 mg tab(s) (LOPRESSOR) 25 mg ORAL BID Dunia [place] 25 mg at 08/21/192003 - [MAR Hold due to Transfer] tamsulosin ER 0.4 mg cap(s) (FLOMAX) 0.4 mg ORAL DAILY Dunia [place] 0.4 mg at 08/21/19 0953 - [MAR Hold due to Transfer] NaCl 0.9% 3-5 mL 3-5 mL INTRAVENOUS q 12 H [place] 3 mL at 08/22/19 0840 - [MAR Hold due to Transfer] NaCl 0.9% 2-10 mL 2-10 mL INTRAVENOUS q 12 H [place] 10 mL at 08/22/19 0900 - [MAR Hold due to Transfer] pantoprazole 40 mg injection (PROTONIX) 40 mg INTRAVENOUS q 12 H [place] 40 mg at 08/22/19 0843 Followed by - [MAR Hold due to Transfer] pantoprazole 40 mg injection (PROTONIX) 40 mg INTRAVENOUS DAILY (6 AM) Dunia [place] Allergies: ALLERGIES No Known Allergies DOS EXAM: Adequate NPO status: Yes Anesthetic risks, benefits, alternatives, personnel and consent discussed: Yes Patient agrees to proceed: Yes Previous Anesthesia: No history of adverse event. Airway Assessment: MP 3; Neck ROM: Full ROM without neurologic symptoms; Airway Evaluation: Thick neck and Short Thyromental Distance Symptoms of Sleep Apnea: Age over 50 (79 year old), Neck circumference > 15.75 inches and Male gender Dentition: Dentures: both Additional Physical Exam: Lungs: Patient health status unchanged since recent history and physical. See history and physical for exam findings. Cardiac: Patient health status unchanged since recent history and physical. See history and physical for exam findings. Additional Pertinent Findings: N/A Blood Products: Not anticipated for this procedure. Anesthetic Plan: MAC with Sedation Pain Management Plan: Parenteral or Oral ASA Class: 3 Other Medical Problems: Hgb 7.6, CAD, A-fib, HTN, GI bleed Chronic Beta Leyda medication administered within 24 hours: Yes I have interviewed and examined the patient. I have reviewed the medical record and/or the pre-anesthesia evaluation, pertinent labs, and test results. Significant changes in the patient's condition since the History and Physical, not otherwise documented in primary service progress notes: No This contains updated information obtained within 48 hours of Surgery/Procedure. SIGNATURE: Marlon Womack MD PATIENT NAME: Elias Shah DATE: August 22, 2019 TIME: 12:40 PM CSN: [id number] Sherrie Bradshaw RN, RN 08/22/2019 1:19 PM Signed PRE OP LEARNING ASSESSMENT PROCEDURE/SURGERY: GI PROCEDURES: EGD READINESS TO LEARN COGNITIVE ABILITY: Alert and oriented MOTIVATION TO LEARN: Interested FAMILY SUPPORT: Moderate - Family present but overwhelmed PATIENT LEARNS BEST BY: Verbal Instruction FACTORS AFFECTING LEARNING: None PHYSICAL LIMITATIONS AFFECTING LEARNING: None Electronically Signed By: AGUSTO Corrales MD 08/22/2019 1:40 PM Signed OPERATIVE/PROCEDURE REPORT LOG ID: [id number] Surgery/Procedure Date: 08/22/2019 Incision/Procedure Start Time: 1:29 PM Incision Close/Procedure End Time: 1:33 PM Surgeon(s)/Procedural ist(s) and Cork Pressing Machine Operator(s): Surgeon(s) and Role: * Zora Peter - Primary No Additional Staff Procedure(s): Esophagogastroduodeno scopy (EGD) Anesthesia: Monitored Anesthesia Care Brief History: 79/M, admitted with c/o- passing melenic stools with low HANDH Procedure Details: The patient was placed in the left lateral decubitus position. A bite block was placed and medications administered as above. The Olympus gastroscope was used to intubate the oropharynx and esophagus with ease. Esophagus- No strictures; mucosa unremarkable; Diaphragmatic indentation at 41 cm, GE junction at 41 cm and Squamocolumnar junction at 41 cm from incisors. Stomach- Cardia- No masses Body- normal Antrum- normal Fundus (during retroflexion)- normal Duodenum- Bulb- normal; Second part- normal; third and fourth past- normal Proximal jejunum- normal The scope was then withdrawn and the patient tolerated the procedure well. Pre-Op/Pre-Procedure Diagnosis: Melena Post-Op/Post-Procedur e Diagnosis: Normal exam up to proximal jejunum Specimens: See above EBL: None Complications: None Recommendations: Continue current medications Plan colonoscopy No qualified resident/fellow was available. Zora Peter MD SIGNATURE: Zora Peter MD PATIENT NAME: Elias Shah DATE: August 22, 2019 TIME: 1:36 PM PAGER/CONTACT #: Barbara Roque RN, RN 08/22/2019 2:29 PM Signed CARE MANAGEMENT PROGRESS NOTE SERVICE DATE: 08/22/2019 SERVICE TIME: 2:29 PM LOS: 2 days Attempted to meet with pt for initial assessment, he is in Endo for procedure. Will F/U SIGNATURE: Barbara Roque RN PATIENT NAME: Elias Shah DATE: August 22, 2019 TIME: 2:29 PM PAGER/CONTACT #: [phone] Adriane Avelar RN, RN 08/22/2019 2:48 PM Signed ONGOING PATIENT EDUCATION TOPIC Reinforced: sedation Patient Name: Elias Shah [place] Readiness To Learn Motivation To Learn: Interested Instruction Provided To: Patient Learning Response Patient/Family Response: Verbalizes understanding of: POST-PROCEDURE INSTRUCTIONS-Correct actions to take to reduce post procedure complications Method of Instruction: Verbal instruction Follow-Up Plan: Complete - No need for follow-up Electronically signed by: AGUSTO Rodas MD 08/22/2019 4:50 PM Signed POST ANESTHESIA EVALUATION NOTE SERVICE DATE: 08/22/2019 SERVICE TIME: 4:49 PM : 1940 Vitals: 08/22/19 0130 08/22/19 0813 08/22/19 1107 08/22/19 1616 Temp: 36.4 ?C (97.5 ?F) 36.9 ?C (98.4 ?F) 36.8 ?C (98.2 ?F) 36.8 ?C (98.2 ?F) 08/22/19 1313 08/22/19 1354 08/22/19 1436 08/22/19 1616 BP: 165/76 150/72 141/63 178/75 08/22/19 1313 08/22/19 1354 08/22/19 1436 08/22/19 1616 Pulse: 64 64 (!) 53 64 08/22/19 1313 08/22/19 1354 08/22/19 1436 08/22/19 1616 Resp: 16 18 16 18 08/22/19 1313 08/22/19 1354 08/22/19 1436 08/22/19 1616 SpO2: 100% 98% 97% 98% Validated Vital Signs: Yes POST ANES STATUS: No apparent anesthetic complications. The patient is appropriately hydrated with stable respiratory and cardiovascular status. Patient has safe and adequate airway control. The patient has appropriate pain relief and no significant post operative nausea or vomiting. The patient has achieved baseline mental status. Intra-Operative Events: No Significant Anesthesia Events Further assessment by Anesthesia Service: None Other Remarks: SIGNATURE: Marlon Womack MD PATIENT NAME: Eilas Shah DATE: August 22, 2019 TIME: 4:49 PM PAGER/CONTACT #: Ina Ryan RN, RN 08/23/2019 10:19 AM Signed PRE OP LEARNING ASSESSMENT PROCEDURE/SURGERY: GI PROCEDURES: Colonoscopy READINESS TO LEARN COGNITIVE ABILITY: Alert and oriented MOTIVATION TO LEARN: Interested FAMILY SUPPORT: None - Unavailable/disintere sted PATIENT LEARNS BEST BY: Individual Instruction FACTORS AFFECTING LEARNING: None PHYSICAL LIMITATIONS AFFECTING LEARNING: None Electronically Signed By: Ina Ryan RN In Department: [facility] CNOVon 08-12-2019 CNOV Office Visit (AGVASACC) ELIAS SHAH ([id number]) 1940 M Date Time Provider Department 08/12/19 2:00 PM HELENA BACON) AGVASACC During your visit today, we recorded the following information about you: Pulse Respiration Blood pressure Weight 56/minute 20/minute 140/80 90.3 kg Height 1.829 m Helena Bacon APRN.KEE OTERO 08/12/2019 5:17 PM Signed HPI: Elias Shah is a 79 year old male that returns to the office today for 6 week post-discharge follow up for aortic stenosis and coronary artery disease s/p combined, CABGX2 ([place] to LAD, SVG to ramus), Aortic valve replacement with #23 [facility] Cristhian trifecta pericardial prosthesis and exclusion of the left atrial appendage with # #35 mm AtriCure Clip performed on 07/04/[address] Manuel constantino. His post-operative course was complicated by atrial fibrillation with RVR (present prior to surgery), acute on chronic kidney disease, acute on chronic anemia, hematuria, acute encephalopathy. He was discharged [facility] on 07/13/2019. while recovering in acute rehabilitation, Mr. Carreno had ongoing complications of bradycardia, tachycardia, atrial fibrillation. Additionally chest x-ray was done on July 27 and he was diagnosed with pneumonia and treated on IV vancomycin and cefepime. However he reported no fevers, no chills, nonproductive cough, and minimal shortness of breath. He also complained that he was not permitted to ambulate independently with a walker as he had been doing prior to surgery. Mr. Carreno reports that he was discharged home yesterday 08/11. Today, Elias Shah, reports confusion with his medications and low heart rate. His sister did not give any medications this AM due to confusion and low heart rate. Pain: Occasional oxycodone for pain, worse with coughing. CV: (Dizzy, palpitations, BP, Edema) HR low this AM. Home BP cough not working SOB/BARDALES: No SOB, but cough, worse with laying flat Fever: None Diet: Improved apetite Bowel: Regular with miralax Activity: gradually increasing C/O: cough Cardiology F/U: Dr Ann 08/18 Cardiac Rehab: TBD at [facility] Subjective: Current Outpatient Medications: metoprolol tartrate, short acting, (LOPRESSOR) 25 mg tablet Take 2 tablets by mouth every 8 hours. methylPREDNISolone (MEDROL DOSE-PACK) 4 mg Dose-Pack Take by mouth. As Instructed per package oxyCODONE ir (OXYIR) 5 mg capsule Take 5 mg by mouth every 6 hours as needed. guaifen/dextromethorp coronado/pe (GUAIFEN DM ORAL) Take by mouth. vancomycin 1.25 gram solr Inject intravenously. amiodarone (PACERONE) 200 mg tablet Take 1 tablet by mouth once daily. acetaminophen (TYLENOL) 325 mg tablet Take 2 tablets by mouth every 4 hours as needed. aspirin 81 mg chewable tablet Take 2 tablets by mouth once daily. ferrous sulfate 325 mg (65 mg iron) tablet Take 1 tablet by mouth once daily. albuterol (PROVENTIL) 2.5 mg /3 mL (0.083 %) nebulizer solution Use 3 mL via nebulizer every 4 hours as needed for Wheezing/Shortness of Breath. atorvastatin (LIPITOR) 40 mg tablet Take 1 tablet by mouth daily at bedtime. bisacodyl (DULCOLAX) 10 mg supp 1 Suppository by RECTAL route once daily as needed. furosemide (LASIX) 40 mg tablet Take 1 tablet by mouth once daily for 5 days. polyethylene glycol 3350 (MIRALAX, GLYCOLAX) 17 gram packet Take 1 Packet by mouth once daily as needed. senna-docusate (SENNA-S) 8.6-50 mg per tablet Take 1 tablet by mouth twice daily as needed. tamsulosin ER (FLOMAX) 0.4 mg cap Take 0.4 mg by mouth once daily. Lactobacillus acidophilus/lact (LACTOBACILLUS ACIDOPH-LACTASE ORAL) Take by mouth twice daily. fluticasone (FLONASE ALLERGY RELIEF) 50 mcg/actuation nasal spray Use 1 [place] in each nostril once daily. Cholecalciferol, Vitamin D3, 5,000 unit cap Take 5,000 Units by mouth once daily. No current facility-administered medications for this visit. Patient has no known allergies. PAST MEDICAL HISTORY Diagnosis Date - Acute kidney injury (HCC) - Acute metabolic encephalopathy - Anemia - Aortic stenosis - Atrial fibrillation (HCC) - Bowel obstruction (HCC) - Coronary artery disease - Hyperlipidemia - Hypertension - Left bundle branch block - Mitral valve annular calcification - Prolonged QT interval - S/P AVR 07/04/[address] Cristhian Trifecta pericardial prosthesis at [facility] by Dr. 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 Rivers - Vitamin D deficiency PAST SURGICAL HISTORY Procedure Laterality Date - ATRIAL APPENDAGE LIGATION 07/04/2019 35 mm AtriCure clip at [facility] by Dr. Rivers - CABG (2) VEIN GRAFTS AND ARTERIAL GRAFT(S 07/04/2019 at [facility] by Dr. Rivers - REPAIR UMBILICAL HERNIA 12/04/2018 after bowel perforation done at [facility] Dr. Young - REPLAC AORT VALV PROSTH VALV 07/04/[address] Cristhian Trifecta pericardial prosthesis at [facility] by Dr. Rivers FAMILY HISTORY Problem Relation Age of Onset - Osteoporosis Mother - Heart Mother - Cancer Father Social History Tobacco Use - Smoking status: Former Smoker Packs/day: 1.00 Years: 5.00 Pack years: 5.00 Last attempt to quit: 11/23/1954 Years since quittin.7 - Smokeless tobacco: Never Used Substance Use Topics - Alcohol use: Yes Comment: social - Drug use: Never Review of Systems Constitutional: Negative for chills, fever, malaise/fatigue and weight loss (Weight has been stable). HENT: Negative for sore throat. Respiratory: Positive for cough (Worse at night while lying flat). Negative for sputum production, shortness of breath and wheezing. Cardiovascular: Positive for leg swelling (Left LE). Negative for chest pain, palpitations, orthopnea, claudication and PND. Gastrointestinal: Negative for abdominal pain, blood in stool, constipation, diarrhea, melena, nausea and vomiting. Genitourinary: Negative for dysuria. Musculoskeletal: Negative for falls and joint pain. Skin: No new lesions Neurological: Negative for dizziness, tingling, sensory change, focal weakness, weakness and headaches. Endo/Heme/Allergies: Does not bruise/bleed easily. Psychiatric/Behaviora l: Negative for depression. The patient does not have insomnia. Objective: One month post- op Chest X-ray is done and reviewed today. Small left pleural effusion, left hemidiaphragm elevation Physical Examination: Vitals:BP 140/80 Pulse 56 Resp 20 Ht 6' 0 (1.83m) Wt 199 lb (90.3kg) SpO2 97% BMI 26.98 kg/(m2). Last 2 Encounter Wt Readings: Date: Wt: 07/28/2019 206 lb (93.4 kg) 06/27/2019 200 lb (90.7 kg) Physical Exam Constitutional: He is oriented to person, place, and time and well-developed, well-nourished, and in no distress. HENT: Head: Normocephalic. Eyes: Pupils are equal, round, and reactive to light. Cardiovascular: Regular rhythm, S1 normal, S2 normal and intact distal pulses. No murmur heard. Bradycardia noted Pulmonary/Chest: Effort normal and breath sounds normal. No respiratory distress. Abdominal: Soft. Normal appearance and bowel sounds are normal. Musculoskeletal: He exhibits edema (LLE 1+ pitting). Neurological: He is alert and oriented to person, place, and time. Skin: Skin is warm and intact. Midsternal incision clean dry, well approximated, no redness or drainage Sternum is Stable Ct Sites Healed SVG site clean dry, no redness, drainage, or hematoma Psychiatric: Mood and affect normal. Assessment and Plan: ASSESSMENT/PLAN: 1. S/P AVR (aortic valve replacement) - ICD9: V43.3, ICD10: Z95.2 (primary diagnosis) -Continue medical therapy with aspirin 162 mg, atorvastatin 40 mg daily, metoprolol 50 mg 2 times a day -Lasix 20 mg x 7 days for persistent pleural effusion, LLE edema -Vanessa wrap to LLE for edema and compression on harvest site -F/U with Dr Ann next week -May begin cardiac rehab when released by Dr Ann 2. S/P CABG x 2 - ICD9: V45.81, ICD10: Z95.1 -As above 3. Paroxysmal atrial fibrillation (HCC) - ICD9: 427.31, ICD10: I48.0 -Patient was noted to be atrial fibrillation in office last visit -He was protected with left atrial appendage ligation therefore oral anticoagulation was deferred -In office today RRR bradycardia -Decrease metoprolol to 50 mg BID -Stop amiodarone -Will defer to airport operations coordinator Dr. Ann for further management 4. MAURO (acute kidney injury) (HCC) - ICD9: 584.9, ICD10: N17.9 -SCR 08/04/19 at [facility] 1.20 (1.13-1.18 preop) -Stable 5. Debility - ICD9: 799.3, ICD10: R53.81 - Patient is seen in wheelchair again today, - Home with walker, but occasionally without. - Increase ambulation as much as tolerated 6. Anemia, unspecified type - ICD9: 285.9, ICD10: D64.9 Last H/H 08/22 improved since discharge Helena Bacon APRN.CNP In summary, Patient is doing improved overall after his CABG/AVR surgery, with no major complaints. Patient is released to drive, work. Patient should start cardiac rehab from this point on. he should follow up with his airport operations coordinator and PCP as scheduled, and should follow-up with us in 1 month with CXR before. Thanks. Electronically signed by Helena Bacon APRN.CNP on August 12, 2019, 1:36 PM Helena Bacon APRN.CNP, CNP 08/12/2019 3:02 PM Addendum - You may drive! - Please begin cardiac rehab. If they have not contacted you, please call them: -See Dr Ann next week and talk to him about starting cardiac rehab - Weight bearing restriction remains: No lifting more than 10 lbs. You may begin to gradually increase the amount of weight bearing. Cardiac rehab will help with this. - Please see your airport operations coordinator regularly. They will take over medication management. - Please feel free to call us if you have any post-operative concerns. Start lasix 1 tablet daily for 7 days. Take in morning only. Start tomorrow. Eat baked potatoes daily while on lasix to give you potassium Stop Amiodarone Stop Tessalon perles MEDS IMPORTANT ONES: Metoprolol 50 mg 2 times daily : AM and PM about 12 hours apart. Aspirin 2 tablets 1 time daily in AM Lipitor (atorvastatin) 1 tablet daily PM Flomax (tamsulosin) 1 tablet daily at bedtime Lasix 1 tablet in the morning Miralax for constipation Others all [id number] Take if you think you need them Miralax for constipation Ferrous polysaccharide - anemia -STOP Robitussin DM syrup -cough Vitamin D - Pro biotic flonase Thank you for coming to see me today!! Helena Bacon, DAMAGE ADJUSTER.TENNIS COACH Referring Provider: SELF [[id number]] Allergies As of Date: 08/12/2019 (No Known Allergies) Date Reviewed: 08/12/2019 Reviewed by: Brook (Steel Analyst) Zahra - Fully Assessed Reason for Visit: Post Op [174] Cmt: CABG /AVR 07/04/19 CXR done in process Primary Visit Diagnosis:S/P AVR (aortic valve replacement) [Z95.2] Other Visit Diagnoses:S/P CABG x 2 [Z95.1] Paroxysmal atrial fibrillation (HCC) [I48.0] MAURO (acute kidney injury) (HCC) [N17.9] Debility [R53.81] Anemia, unspecified type [D64.9] Order(s):furosemide (LASIX) 20 mg tabletTake 1 tablet by mouth once daily for 7 days.Disp: 7 tabletRfl: 0 metoprolol tartrate, short acting, (LOPRESSOR) 25 mg tabletTake 2 tablets by mouth twice daily.Disp: 60 tabletRfl: 5 XR CHEST 2V FRONTAL/LAT [[id number]] Order #: [id number] FUTURE Blood Pressure Monitor kitMonitor heart rate and blood pressure once dailyDisp: 1 KitRfl: 0 Prescriptions as of 08/12/2019 Sig: METOPROLOL TARTRATE 25 MG TAB* Take 2 tablets by mouth twice* OXYCODONE 5 MG CAPSULE Take 5 mg by mouth every 6 ho* GUAIFEN DM ORAL Take by mouth. ACETAMINOPHEN 325 MG TABLET Take 2 tablets by mouth every* ASPIRIN 81 MG CHEWABLE TABLET Take 2 tablets by mouth once * ATORVASTATIN 40 MG TABLET Take 1 tablet by mouth daily * POLYETHYLENE GLYCOL 3350 17 G* Take 1 Packet by mouth once d* TAMSULOSIN 0.4 MG CAPSULE Take 0.4 mg by mouth once basilio* FUROSEMIDE 20 MG TABLET Take 1 tablet by mouth once d* BLOOD PRESSURE MONITOR KIT Monitor heart rate and blood * Problem List As Of Date 08/12/2019 Noted Resolved Abnormal electrocardiogram (ECG) (EKG) [R94.31] INVALID FOR* Anemia, unspecified [D64.9] INVALID FOR* Aortic valve stenosis [I35.0] INVALID FOR* Atrial fibrillation with rapid ventricular resp*INVALID FOR* MAURO (acute kidney injury) (HCC) [N17.9] INVALID FOR* Acute metabolic encephalopathy [G93.41] INVALID FOR* Vitamin D deficiency [E55.9] INVALID FOR* Small bowel obstruction (HCC) [K56.609] INVALID FOR* Paroxysmal atrial fibrillation (HCC) [I48.0] INVALID FOR* LBBB (left bundle branch block) [I44.7] INVALID FOR* Incarcerated umbilical hernia [K42.0] INVALID FOR* Declining functional status [R53.81] INVALID FOR* Essential hypertension [I10] INVALID FOR* Hyperlipidemia [E78.5] INVALID FOR* Impaired cognition [R41.89] INVALID FOR* Aortic stenosis [I35.0] INVALID FOR* Malnutrition of moderate degree (HCC) [E44.0] INVALID FOR* S/P AVR (aortic valve replacement) [Z95.2] INVALID FOR* S/P CABG x 2 [Z95.1] INVALID FOR* Acute encephalopathy [G93.40] INVALID FOR* Coronary artery disease of [place] artery of [place]*INVALID FOR* Other instructions from your clinician: - You may drive! - Please begin cardiac rehab. If they have not contacted you, please call them: -See Dr Ann next week and talk to him about starting cardiac rehab - Weight bearing restriction remains: No lifting more than 10 lbs. You may begin to gradually increase the amount of weight bearing. Cardiac rehab will help with this. - Please see your airport operations coordinator regularly. They will take over medication management. - Please feel free to call us if you have any post-operative concerns. Start lasix 1 tablet daily for 7 days. Take in morning only. Start tomorrow. Eat baked potatoes daily while on lasix to give you potassium Stop Amiodarone Stop Tessalon perles MEDS IMPORTANT ONES: Metoprolol 50 mg 2 times daily : AM and PM about 12 hours apart. Aspirin 2 tablets 1 time daily in AM Lipitor (atorvastatin) 1 tablet daily PM Flomax (tamsulosin) 1 tablet daily at bedtime Lasix 1 tablet in the morning Miralax for constipation Others all [id number]-[id number] Take if you think you need them Miralax for constipation Ferrous polysaccharide - anemia -STOP Robitussin DM syrup -cough Vitamin D - Pro biotic flonase Thank you for coming to see me today!! Helena Bacon, DAMAGE ADJUSTER.TENNIS COACH Prescriptions ordered this encounter Disp Refills Start End FUROSEMIDE 20 MG TABLET 7 ta* 0 08/12/2019 08/19/2019 Route: ORAL Sig: Take 1 tablet by mouth once daily for 7 days. METOPROLOL TARTRATE 25 MG TABLET 60 t* 5 08/12/2019 Route: ORAL Sig: Take 2 tablets by mouth twice daily. BLOOD PRESSURE MONITOR KIT 1 Kit 0 08/12/2019 08/12/2019 Class: Print RX Sig: Monitor heart rate and blood pressure once daily BLOOD PRESSURE MONITOR KIT 1 Kit 0 08/12/2019 08/13/2019 Class: Print RX Sig: Monitor heart rate and blood pressure once daily Medications Discontinued During This Encounter furosemide (LASIX) 40 mg tablet 0 07/13/2019 08/12/2019 Class: Med Update Route: ORAL Sig: Take 1 tablet by mouth once daily for 5 days. Disc: Course of therapy completed metoprolol tartrate, short acting, (* 07/29/2019 08/12/2019 Class: Med Update Route: ORAL Sig: Take 2 tablets by mouth every 8 hours. Patient taking differently: Take by mouth every 8 hours. hold for heart rate < 60 Disc: Reason for discontinue is not on file. vancomycin 1.25 gram solr 08/12/2019 Class: Historical Med Route: INTRAVENOUS Sig: Inject intravenously. Disc: Course of therapy completed senna-docusate (SENNA-S) 8.6-50 mg p* 07/13/2019 08/12/2019 Class: Med Update Route: ORAL Sig: Take 1 tablet by mouth twice daily as needed. Disc: Course of therapy completed methylPREDNISolone (MEDROL DOSE-PACK* 08/12/2019 Class: Historical Med Route: ORAL Sig: Take by mouth. As Instructed per package Disc: Course of therapy completed bisacodyl (DULCOLAX) 10 mg supp 07/13/2019 08/12/2019 Class: Med Update Route: RECTAL Si Suppository by RECTAL route once daily as needed. Patient not taking: Reported on 08/12/2019 Disc: Course of therapy completed ferrous sulfate 325 mg (65 mg iron) * 07/14/2019 08/12/2019 Class: Med Update Route: ORAL Sig: Take 1 tablet by mouth once daily. Patient not taking: Reported on 08/12/2019 Disc: Course of therapy completed amiodarone (PACERONE) 200 mg tablet 07/21/2019 08/12/2019 Class: Med Update Route: ORAL Sig: Take 1 tablet by mouth once daily. Disc: Course of therapy completed albuterol (PROVENTIL) 2.5 mg /3 mL (* 07/13/2019 08/12/2019 Class: Med Update Route: NEBULIZATION -UNSPEC Sig: Use 3 mL via nebulizer every 4 hours as needed for Wheezing/Shortness of Breath. Patient not taking: Reported on 08/12/2019 Disc: Course of therapy completed benzonatate (TESSALON PERLE ORAL) 08/12/2019 Class: Historical Med Route: ORAL Sig: Take 1 capsule by mouth three times daily as needed. Disc: Course of therapy completed iron polysaccharide complex (IFEREX * 08/12/2019 Class: Historical Med Route: ORAL Sig: Take 150 mg by mouth daily before breakfast. Disc: Course of therapy completed Cholecalciferol, Vitamin D3, 5,000 u* 08/12/2019 Class: Historical Med Route: ORAL Sig: Take 5,000 Units by mouth once daily. Disc: Course of therapy completed Lactobacillus acidophilus/lact (LACT* 08/12/2019 Class: Historical Med Route: ORAL Sig: Take by mouth twice daily. Disc: Course of therapy completed fluticasone (FLONASE ALLERGY RELIEF)* 08/12/2019 Class: Historical Med Route: EACH NOSTRIL Sig: Use 1 [place] in each nostril once daily. Disc: Course of therapy completed Blood Pressure Monitor kit 1 Kit 0 08/12/2019 08/12/2019 Class: Print RX Sig: Monitor heart rate and blood pressure once daily Disc: Reason for discontinue is not on file. Disposition: Return in about 4 weeks (around 09/09/2019), or if symptoms worsen or fail to improve, for Post op. Follow-up and Disposition History Recorded Letter Text Encounter Status:Closed by HELENA BACON CNP on 08/12/19 [facility] PROGRESSon 08-12-2019 PROGRESS HNO ID: [id number] Author: Helena (Kee) KEE Bacon Service: ? Author Type: Nurse Practitioner Type: Progress Notes Filed: 08/12/2019 5:17 PM Note Text: HPI: Elias Shah is a 79 year old male that returns to the office today for 6 week post-discharge follow up for aortic stenosis and coronary artery disease s/p combined, CABGX2 ([place] to LAD, SVG to ramus), Aortic valve replacement with #23 [employer] Crist[place]ian trifecta pericardial prosthesis and exclusion of the left atrial appendage with # #35 mm AtriCure Clip performed on 07/04/[address] Manuel constantino. His post-operative course was complicated by atrial fibrillation with RVR (present prior to surgery), acute on chronic kidney disease, acute on chronic anemia, hematuria, acute encephalopathy. He was discharged [facility] on 07/13/2019. while recovering in acute rehabilitation, Mr. Carreno had ongoing complications of bradycardia, tachycardia, atrial fibrillation. Additionally chest x-ray was done on July 27 and he was diagnosed with pneumonia and treated on IV vancomycin and cefepime. However he reported no fevers, no chills, nonproductive cough, and minimal shortness of breath. He also complained that he was not permitted to ambulate independently with a walker as he had been doing prior to surgery. Mr. Carreno reports that he was discharged home yesterday 08/11. Today, Elias Shah, reports confusion with his medications and low heart rate. His sister did not give any medications this AM due to confusion and low heart rate. Pain: Occasional oxycodone for pain, worse with coughing. CV: (Dizzy, palpitations, BP, Edema) HR low this AM. Home BP cough not working SOB/BARDALES: No SOB, but cough, worse with laying flat Fever: None Diet: Improved apetite Bowel: Regular with miralax Activity: gradually increasing C/O: cough Cardiology F/U: Dr Ann 08/18 Cardiac Rehab: TBD at [facility] Subjective: Current Outpatient Medications: metoprolol tartrate, short acting, (LOPRESSOR) 25 mg tablet Take 2 tablets by mouth every 8 hours. methylPREDNISolone (MEDROL DOSE-PACK) 4 mg Dose-Pack Take by mouth. As Instructed per package oxyCODONE ir (OXYIR) 5 mg capsule Take 5 mg by mouth every 6 hours as needed. guaifen/dextromethorp coronado/pe (GUAIFEN DM ORAL) Take by mouth. vancomycin 1.25 gram solr Inject intravenously. amiodarone (PACERONE) 200 mg tablet Take 1 tablet by mouth once daily. acetaminophen (TYLENOL) 325 mg tablet Take 2 tablets by mouth every 4 hours as needed. aspirin 81 mg chewable tablet Take 2 tablets by mouth once daily. ferrous sulfate 325 mg (65 mg iron) tablet Take 1 tablet by mouth once daily. albuterol (PROVENTIL) 2.5 mg /3 mL (0.083 %) nebulizer solution Use 3 mL via nebulizer every 4 hours as needed for Wheezing/Shortness of Breath. atorvastatin (LIPITOR) 40 mg tablet Take 1 tablet by mouth daily at bedtime. bisacodyl (DULCOLAX) 10 mg supp 1 Suppository by RECTAL route once daily as needed. furosemide (LASIX) 40 mg tablet Take 1 tablet by mouth once daily for 5 days. polyethylene glycol 3350 (MIRALAX, GLYCOLAX) 17 gram packet Take 1 Packet by mouth once daily as needed. senna-docusate (SENNA-S) 8.6-50 mg per tablet Take 1 tablet by mouth twice daily as needed. tamsulosin ER (FLOMAX) 0.4 mg cap Take 0.4 mg by mouth once daily. Lactobacillus acidophilus/lact (LACTOBACILLUS ACIDOPH-LACTASE ORAL) Take by mouth twice daily. fluticasone (FLONASE ALLERGY RELIEF) 50 mcg/actuation nasal spray Use 1 [place] in each nostril once daily. Cholecalciferol, Vitamin D3, 5,000 unit cap Take 5,000 Units by mouth once daily. No current facility-administered medications for this visit. Patient has no known allergies. PAST MEDICAL HISTORY Diagnosis Date - Acute kidney injury (HCC) - Acute metabolic encephalopathy - Anemia - Aortic stenosis - Atrial fibrillation (HCC) - Bowel obstruction (HCC) - Coronary artery disease - Hyperlipidemia - Hypertension - Left bundle branch block - Mitral valve annular calcification - Prolonged QT interval - S/P AVR 07/04/[address] Crist[employer]ian Trifecta pericardial prosthesis at [facility] by Dr. 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 Rivers - Vitamin D deficiency PAST SURGICAL HISTORY Procedure Laterality Date - ATRIAL APPENDAGE LIGATION 07/04/2019 35 mm AtriCure clip at [facility] by Dr. Rivers - CABG (2) VEIN GRAFTS AND ARTERIAL GRAFT(S 07/04/2019 at [facility] by Dr. Rivers - REPAIR UMBILICAL HERNIA 12/04/2018 after bowel perforation done at [facility] Dr. Young - REPLAC AORT VALV PROSTH VALV 07/04/[address] Crist[employer]ian Trifecta pericardial prosthesis at [facility] by Dr. Rivers FAMILY HISTORY Problem Relation Age of Onset - Osteoporosis Mother - Heart Mother - Cancer Father Social History Tobacco Use - Smoking status: Former Smoker Packs/day: 1.00 Years: 5.00 Pack years: 5.00 Last attempt to quit: 11/23/1954 Years since quittin.7 - Smokeless tobacco: Never Used Substance Use Topics - Alcohol use: Yes Comment: social - Drug use: Never Review of Systems Constitutional: Negative for chills, fever, malaise/fatigue and weight loss (Weight has been stable). HENT: Negative for sore throat. Respiratory: Positive for cough (Worse at night while lying flat). Negative for sputum production, shortness of breath and wheezing. Cardiovascular: Positive for leg swelling (Left LE). Negative for chest pain, palpitations, orthopnea, claudication and PND. Gastrointestinal: Negative for abdominal pain, blood in stool, constipation, diarrhea, melena, nausea and vomiting. Genitourinary: Negative for dysuria. Musculoskeletal: Negative for falls and joint pain. Skin: No new lesions Neurological: Negative for dizziness, tingling, sensory change, focal weakness, weakness and headaches. Endo/Heme/Allergies: Does not bruise/bleed easily. Psychiatric/Behaviora l: Negative for depression. The patient does not have insomnia. Objective: One month post- op Chest X-ray is done and reviewed today. Small left pleural effusion, left hemidiaphragm elevation Physical Examination: Vitals:BP 140/80 Pulse 56 Resp 20 Ht 6' 0 (1.83m) Wt 199 lb (90.3kg) SpO2 97% BMI 26.98 kg/(m2). Last 2 Encounter Wt Readings: Date: Wt: 07/28/2019 206 lb (93.4 kg) 06/27/2019 200 lb (90.7 kg) Physical Exam Constitutional: He is oriented to person, place, and time and well-developed, well-nourished, and in no distress. HENT: Head: Normocephalic. Eyes: Pupils are equal, round, and reactive to light. Cardiovascular: Regular rhythm, S1 normal, S2 normal and intact distal pulses. No murmur heard. Bradycardia noted Pulmonary/Chest: Effort normal and breath sounds normal. No respiratory distress. Abdominal: Soft. Normal appearance and bowel sounds are normal. Musculoskeletal: He exhibits edema (LLE 1+ pitting). Neurological: He is alert and oriented to person, place, and time. Skin: Skin is warm and intact. Midsternal incision clean dry, well approximated, no redness or drainage Sternum is Stable Ct Sites Healed SVG site clean dry, no redness, drainage, or hematoma Psychiatric: Mood and affect normal. Assessment and Plan: ASSESSMENT/PLAN: 1. S/P AVR (aortic valve replacement) - ICD9: V43.3, ICD10: Z95.2 (primary diagnosis) -Continue medical therapy with aspirin 162 mg, atorvastatin 40 mg daily, metoprolol 50 mg 2 times a day -Lasix 20 mg x 7 days for persistent pleural effusion, LLE edema -Vanessa wrap to LLE for edema and compression on harvest site -F/U with Dr Ann next week -May begin cardiac rehab when released by Dr Ann 2. S/P CABG x 2 - ICD9: V45.81, ICD10: Z95.1 -As above 3. Paroxysmal atrial fibrillation (HCC) - ICD9: 427.31, ICD10: I48.0 -Patient was noted to be atrial fibrillation in office last visit -He was protected with left atrial appendage ligation therefore oral anticoagulation was deferred -In office today RRR bradycardia -Decrease metoprolol to 50 mg BID -Stop amiodarone -Will defer to airport operations coordinator Dr. Ann for further management 4. MAURO (acute kidney injury) (HCC) - ICD9: 584.9, ICD10: N17.9 -SCR 08/04/19 at [facility] 1.20 (1.13-1.18 preop) -Stable 5. Debility - ICD9: 799.3, ICD10: R53.81 - Patient is seen in wheelchair again today, - Home with walker, but occasionally without. - Increase ambulation as much as tolerated 6. Anemia, unspecified type - ICD9: 285.9, ICD10: D64.9 Last H/H 08/22 improved since discharge Helena Bacon APRN.CNP In summary, Patient is doing improved overall after his CABG/AVR surgery, with no major complaints. Patient is released to drive, work. Patient should start cardiac rehab from this point on. he should follow up with his airport operations coordinator and PCP as scheduled, and should follow-up with us in 1 month with CXR before. Thanks. Electronically signed by Helena Bacon APRN.CNP on August 12, 2019, 1:36 PM [facility] CNOVon 07-28-2019 [facility] Office Visit (AGVASACC) ALYSSAELIAS Farshad ([id number]) 1940 M Date Time Provider Department 07/28/19 3:00 PM HELENA BACON (KEE) AGVASACC During your visit today, we recorded the following information about you: Pulse Respiration Blood pressure Weight 82/minute 18/minute 128/70 93.4 kg Height 1.829 m Helena Bacon APRN.CNP, CNP 07/29/2019 9:15 AM Signed HPI: Elias Shah is a 79 year old male that returns to the office today for 2 week post-discharge follow up for aortic stenosis and coronary artery disease s/p combined, CABGX2 ([place] to LAD, SVG to ramus), Aortic valve replacement with #23 [place] [place]ian trifecta pericardial prosthesis and exclusion of the left atrial appendage with # #35 mm AtriCure Clip performed on 07/04/[address] Manuel constantino. His post-operative course was complicated by atrial fibrillation with RVR (present prior to surgery), acute on chronic kidney disease, acute on chronic anemia, hematuria, acute encephalopathy. He was discharged [facility] on 07/13/2019. In the intervening week since discharge, Mr. Carreno has had problems with bradycardia as well as tachycardia. He was discharged on metoprolol 75 mg 3 times a day and amiodarone 200 mg twice a day for atrial fibrillation suppression. He was unable to return to cardiac surgery in follow-up due to transportation, he was also found to have concern for DVT (ruled out with U/S), as well as shingles on the right side of his neck. Today, Elias Shah, reports: He has a day he had a chest x-ray and was diagnosed with pneumonia. He is being treated for pneumonia with IV vancomycin and cefepime. He reports he's had no fevers, no chills, feels he is gradually getting better. He complains of dry dry cough with scant mucus production clear. He further reports he is getting PT/OT twice a day, however in between he is not permitted to get up and ambulate independently with a walker. He reports the plan is for discharge home on August 05, 2019. Pain denies any real pain CV (Dizzy, palpitations, BP, edema): Ongoing left lower extremity edema, he denies right lower extremity edema SOB/BARDALES: BARDALES, especially when off oxygen but none at rest Fever: Denies Diet: Improving appetite Bowel: Normal Activity: Gradually increasing C/O: None Subjective: Current Outpatient Medications: amiodarone (PACERONE) 200 mg tablet Take 1 tablet by mouth once daily. metoprolol tartrate, short acting, (LOPRESSOR) 25 mg tablet Take 1 tablet by mouth twice daily. acetaminophen (TYLENOL) 325 mg tablet Take 2 tablets by mouth every 4 hours as needed. aspirin 81 mg chewable tablet Take 2 tablets by mouth once daily. ferrous sulfate 325 mg (65 mg iron) tablet Take 1 tablet by mouth once daily. albuterol (PROVENTIL) 2.5 mg /3 mL (0.083 %) nebulizer solution Use 3 mL via nebulizer every 4 hours as needed for Wheezing/Shortness of Breath. ascorbic acid, vitamin C, (VITAMIN C) 500 mg tablet Take 1 tablet by mouth once daily. atorvastatin (LIPITOR) 40 mg tablet Take 1 tablet by mouth daily at bedtime. bisacodyl (DULCOLAX) 10 mg supp 1 Suppository by RECTAL route once daily as needed. folic acid 1 mg tablet Take 1 tablet by mouth once daily. furosemide (LASIX) 40 mg tablet Take 1 tablet by mouth once daily for 5 days. magnesium sulfate in water 2 gram/50 mL (4 %) pgbk Inject 50 mL intravenously as needed (see admin comments). polyethylene glycol 3350 (MIRALAX, GLYCOLAX) 17 gram packet Take 1 Packet by mouth once daily as needed. senna-docusate (SENNA-S) 8.6-50 mg per tablet Take 1 tablet by mouth twice daily as needed. tamsulosin ER (FLOMAX) 0.4 mg cap Take 0.4 mg by mouth once daily. Lactobacillus acidophilus/lact (LACTOBACILLUS ACIDOPH-LACTASE ORAL) Take by mouth twice daily. fluticasone (FLONASE ALLERGY RELIEF) 50 mcg/actuation nasal spray Use 1 [place] in each nostril once daily. Cholecalciferol, Vitamin D3, 5,000 unit cap Take 5,000 Units by mouth once daily. No current facility-administered medications for this visit. Patient has no known allergies. PAST MEDICAL HISTORY Diagnosis Date - Acute kidney injury (HCC) - Acute metabolic encephalopathy - Anemia - Aortic stenosis - Atrial fibrillation (HCC) - Bowel obstruction (HCC) - Coronary artery disease - Hyperlipidemia - Hypertension - Left bundle branch block - Mitral valve annular calcification - Prolonged QT interval - S/P AVR 07/04/[address] Cristhian Trifecta pericardial prosthesis at [facility] by Dr. 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 Rivers - Vitamin D deficiency PAST SURGICAL HISTORY Procedure Laterality Date - ATRIAL APPENDAGE LIGATION 07/04/2019 35 mm AtriCure clip at [facility] by Dr. Rivers - CABG (2) VEIN GRAFTS AND ARTERIAL GRAFT(S 07/04/2019 at [facility] by Dr. Rivers - REPAIR UMBILICAL HERNIA 12/04/2018 after bowel perforation done at [facility] Dr. Young - REPLAC AORT VALV PROSTH VALV 07/04/[address] Cristhian Trifecta pericardial prosthesis at [facility] by Dr. Rivers FAMILY HISTORY Problem Relation Age of Onset - Osteoporosis Mother - Heart Mother - Cancer Father Social History Tobacco Use - Smoking status: Former Smoker Packs/day: 1.00 Years: 5.00 Pack years: 5.00 Last attempt to quit: 11/23/1954 Years since quittin.7 - Smokeless tobacco: Never Used Substance Use Topics - Alcohol use: Yes Comment: social - Drug use: Never Review of Systems Constitutional: Negative for chills, fever and malaise/fatigue. Weight loss: Still volume overload +6 pounds from preop. HENT: Negative for sore throat. Respiratory: Positive for cough and shortness of breath. Negative for sputum production and wheezing. Cardiovascular: Positive for leg swelling (Left greater than right). Negative for chest pain, palpitations, orthopnea, claudication and PND. Gastrointestinal: Negative for abdominal pain, blood in stool, constipation, diarrhea, melena, nausea and vomiting. Genitourinary: Negative for dysuria. Musculoskeletal: Negative for falls and joint pain. Skin: No new lesions Neurological: Negative for dizziness, tingling, sensory change, focal weakness, weakness and headaches. Endo/Heme/Allergies: Does not bruise/bleed easily. Psychiatric/Behaviora l: Negative for depression. The patient does not have insomnia. Objective: Physical Examination: Vitals:BP 128/70 Pulse 82 Resp 18 Ht 6' 0 (1.83m) Wt 206 lb (93.4kg) SpO2 100[3 L o2]% BMI 27.93 kg/(m2). Last 2 Encounter Wt Readings: Date: Wt: 06/27/2019 200 lb (90.7 kg) 06/15/2019 211 lb 12.8 oz (96.1 kg) Physical Exam Constitutional: He is oriented to person, place, and time and well-developed, well-nourished, and in no distress. HENT: Head: Normocephalic. Eyes: Pupils are equal, round, and reactive to light. Cardiovascular: S1 normal, S2 normal and intact distal pulses. No murmur heard. Irregularly irregular per auscultation, likely atrial fibrillation Pulmonary/Chest: Effort normal and breath sounds normal. Patient resting pulse ox on room air 98-99%, post-ambulatory pulse ox 97-98% on room air - mild dyspnea noted. Abdominal: Soft. Normal appearance and bowel sounds are normal. Musculoskeletal: He exhibits edema (to 3+ left lower extremity, 1+ right lower extremity). Neurological: He is alert and oriented to person, place, and time. Gait normal. Patient ambulated in hallway, walked with assistance ?2 Later ambulated to the bathroom independently Skin: Skin is warm and intact. Midsternal incision clean dry, well approximated, no redness or drainage -scabbed and healing Sternum is stable Ct Sites closed SVG site clean dry, no redness, drainage, or hematoma Psychiatric: Mood and affect normal. Assessment and Plan: ASSESSMENT/PLAN: 1. S/P AVR (aortic valve replacement) - ICD9: V43.3, ICD10: Z95.2 (primary diagnosis) -Continue medical therapy with aspirin 162 mg (patient is receiving only 81 mg at [facility]), atorvastatin 40 mg daily, increase metoprolol to 50 mg 3 times a day - CARDIAC REHAB II OUTPT ([place]) -4-6 weeks once recovered from surgery and f/u with Dr Ann - XR CHEST 2V FRONTAL/LAT -for next visit scheduled in 2 weeks 2. S/P CABG x 2 - ICD9: V45.81, ICD10: Z95.1 -As above - CARDIAC REHAB II OUTPT ([place], [place]) - XR CHEST 2V FRONTAL/LAT 3. Paroxysmal atrial fibrillation (HCC) - ICD9: 427.31, ICD10: I48.0 -Irregularly irregular in office -Increase metoprolol to 50 mg 3 times a day for rate control -Status post left atrial appendage ligation -Defer oral anticoagulation for now -Continue aspirin 162 mg 4. MAURO (acute kidney injury) (HCC) - ICD9: 584.9, ICD10: N17.9 -Creatinine 1.3-1.6 stable from preop -Continue Lasix 40 mg daily for fluid overload 5. Acute metabolic encephalopathy - ICD9: 348.31, ICD10: G93.41 -Improving mentation 6. Debility - ICD9: 799.3, ICD10: R53.81 -Increase ambulation at [facility] -Patient to ambulate with walker independently to prepare for home-going scheduled 08/05/2019 7. Pneumonia due to organism - ICD9: 486, ICD10: J18.9 -On vancomycin and cefepime for presumed pneumonia -Request x-ray image from 07/27/2019 from [facility] -Patient with normal O2 saturation at rest and post ambulatory. -Wean O2 prior to discharge. Helena Bacon APRN.CNP In summary, Elias Shah is doing better overall after his combined CABG aVR surgery, with no major complaints. he should follow-up in this office in 2 weeks with Chest X-ray. Thanks. Electronically signed by Helena Bacon APRN.CNP on July 28, 2019, 12:54 PM Helena Bacon APRN.CNP, CNP 07/28/2019 4:42 PM Addendum -Please follow-up with your primary care physician and your airport operations coordinator in 4-6 weeks -Please return to cardiac surgery in 3-4 weeks with a chest x-ray done before the appointment -Restriction remain: No lifting more than 10 lbs and No driving. -Cardiac rehab has been consulted. You will be able to begin cardiac rehab after your next visit with us. [facility]: . Recommendations: 1. Increase ASA to 162 mg 2. Increase metoprolol to 50 mg Q8 hours for afib 3. Increase ambulation, eventually allow to ambulate independently with walker especially if discharge date is planned for 08/05 4. Wean O2. Ambulated in office on Room Air and maintained Sats 98% 5. Please send CXR images dated 07/27/2019. -Feel free to call us if you have questions or concerns Thank you for coming to see me today! Helena Bacon APRN.CNP Referring Provider: SELF [200] Allergies As of Date: 07/28/2019 (No Known Allergies) Date Reviewed: 07/28/2019 Reviewed by: Micaela Kelly LPN - Fully Assessed Reason for Visit: Post Op [174] Cmt: 07/04/19 AVR, CABG, left atrial appendage clip Primary Visit Diagnosis:S/P AVR (aortic valve replacement) [Z95.2] Other Visit Diagnoses:S/P CABG x 2 [Z95.1] Paroxysmal atrial fibrillation (HCC) [I48.0] MAURO (acute kidney injury) (HCC) [N17.9] Acute metabolic encephalopathy [G93.41] Debility [R53.81] Pneumonia due to organism [J18.9] Order(s):CARDIAC REHAB II OUTPT ([place], [place]) [[id number]] Order #: [id number]: 1 XR CHEST 2V FRONTAL/LAT [[id number]] Order #: [id number] FUTURE metoprolol tartrate, short acting, (LOPRESSOR) 25 mg tabletTake 2 tablets by mouth every 8 hours.Disp: Rfl: Prescriptions as of 07/28/2019 Sig: METHYLPREDNISOLONE 4 MG TABLE* Take by mouth. As Instructed * OXYCODONE 5 MG CAPSULE Take 5 mg by mouth every 6 ho* GUAIFEN DM ORAL Take by mouth. VANCOMYCIN 1.25 GRAM INTRAVEN* Inject intravenously. AMIODARONE 200 MG TABLET Take 1 tablet by mouth once d* ACETAMINOPHEN 325 MG TABLET Take 2 tablets by mouth every* ASPIRIN 81 MG CHEWABLE TABLET Take 2 tablets by mouth once * FERROUS SULFATE 325 MG (65 MG* Take 1 tablet by mouth once d* ALBUTEROL SULFATE 2.5 MG/3 ML* Use 3 mL via nebulizer every * ATORVASTATIN 40 MG TABLET Take 1 tablet by mouth daily * BISACODYL 10 MG RECTAL SUPPOS* 1 Suppository by RECTAL route* FUROSEMIDE 40 MG TABLET Take 1 tablet by mouth once d* POLYETHYLENE GLYCOL 3350 17 G* Take 1 Packet by mouth once d* SENNOSIDES 8.6 MG-DOCUSATE SO* Take 1 tablet by mouth twice * TAMSULOSIN 0.4 MG CAPSULE Take 0.4 mg by mouth once basilio* LACTOBACILLUS ACIDOPH-LACTASE* Take by mouth twice daily. FLONASE ALLERGY RELIEF 50 MCG* Use 1 [place] in each nostril o* METOPROLOL TARTRATE 25 MG TAB* Take 2 tablets by mouth every* CHOLECALCIFEROL (VITAMIN D3) * Take 5,000 Units by mouth onc* Problem List As Of Date 07/28/2019 Noted Resolved Abnormal electrocardiogram (ECG) (EKG) [R94.31] INVALID FOR* Anemia, unspecified [D64.9] INVALID FOR* Aortic valve stenosis [I35.0] INVALID FOR* Atrial fibrillation with rapid ventricular resp*INVALID FOR* MAURO (acute kidney injury) (HCC) [N17.9] INVALID FOR* Acute metabolic encephalopathy [G93.41] INVALID FOR* Vitamin D deficiency [E55.9] INVALID FOR* Small bowel obstruction (HCC) [K56.609] INVALID FOR* Paroxysmal atrial fibrillation (HCC) [I48.0] INVALID FOR* LBBB (left bundle branch block) [I44.7] INVALID FOR* Incarcerated umbilical hernia [K42.0] INVALID FOR* Declining functional status [R53.81] INVALID FOR* Essential hypertension [I10] INVALID FOR* Hyperlipidemia [E78.5] INVALID FOR* Impaired cognition [R41.89] INVALID FOR* Aortic stenosis [I35.0] INVALID FOR* Malnutrition of moderate degree (HCC) [E44.0] INVALID FOR* S/P AVR (aortic valve replacement) [Z95.2] INVALID FOR* S/P CABG x 2 [Z95.1] INVALID FOR* Acute encephalopathy [G93.40] INVALID FOR* Coronary artery disease of [place] artery of betty*INVALID FOR* Other instructions from your clinician: -Please follow-up with your primary care physician and your airport operations coordinator in 4-6 weeks -Please return to cardiac surgery in 3-4 weeks with a chest x-ray done before the appointment -Restriction remain: No lifting more than 10 lbs and No driving. -Cardiac rehab has been consulted. You will be able to begin cardiac rehab after your next visit with us. [facility]: . Recommendations: 1. Increase ASA to 162 mg 2. Increase metoprolol to 50 mg Q8 hours for afib 3. Increase ambulation, eventually allow to ambulate independently with walker especially if discharge date is planned for 08/05 4. Wean O2. Ambulated in office on Room Air and maintained Sats 98% 5. Please send CXR images dated 07/27/2019. -Feel free to call us if you have questions or concerns Thank you for coming to see me today! Helena Bacon APRN.TENNIS COACH Prescriptions ordered this encounter Disp Refills Start End METOPROLOL TARTRATE 25 MG TABLET 07/29/2019 Class: Med Update Route: ORAL Sig: Take 2 tablets by mouth every 8 hours. Medications Discontinued During This Encounter metoprolol tartrate, short acting, (* 07/21/2019 07/29/2019 Class: Med Update Route: ORAL Sig: Take 1 tablet by mouth twice daily. Patient taking differently: Take 50 mg by mouth twice daily. Disc: Reason for discontinue is not on file. magnesium sulfate in water 2 gram/50* 07/13/2019 07/29/2019 Class: Med Update Route: INTRAVENOUS Sig: Inject 50 mL intravenously as needed (see admin comments). Patient not taking: Reported on 07/28/2019 Disc: Course of therapy completed folic acid 1 mg tablet 07/14/2019 07/29/2019 Class: Med Update Route: ORAL Sig: Take 1 tablet by mouth once daily. Patient not taking: Reported on 07/28/2019 Disc: Course of therapy completed ascorbic acid, vitamin C, (VITAMIN C* 07/14/2019 07/29/2019 Class: Med Update Route: ORAL Sig: Take 1 tablet by mouth once daily. Patient not taking: Reported on 07/28/2019 Disc: Course of therapy completed Letter Text Encounter Status:Closed by HELENA BACON CNP on 07/29/19 [facility] PROGRESSon 07-28-2019 PROGRESS HNO ID: [id number] Author: Helena Medina) KEE Bacon Service: ? Author Type: Nurse Practitioner Type: Progress Notes Filed: 07/29/2019 9:15 AM Note Text: HPI: Elias Shah is a 79 year old male that returns to the office today for 2 week post-discharge follow up for aortic stenosis and coronary artery disease s/p combined, CABGX2 ([place] to LAD, SVG to ramus), Aortic valve replacement with #23 St[address] Cristhian trifecta pericardial prosthesis and exclusion of the left atrial appendage with # #35 mm AtriCure Clip performed on 07/04/[address] Manuel constantino. His post-operative course was complicated by atrial fibrillation with RVR (present prior to surgery), acute on chronic kidney disease, acute on chronic anemia, hematuria, acute encephalopathy. He was discharged [facility] on 07/13/2019. In the intervening week since discharge, Mr. Carreno has had problems with bradycardia as well as tachycardia. He was discharged on metoprolol 75 mg 3 times a day and amiodarone 200 mg twice a day for atrial fibrillation suppression. He was unable to return to cardiac surgery in follow-up due to transportation, he was also found to have concern for DVT (ruled out with U/S), as well as shingles on the right side of his neck. Today, Elias Shah, reports: He has a day he had a chest x-ray and was diagnosed with pneumonia. He is being treated for pneumonia with IV vancomycin and cefepime. He reports he's had no fevers, no chills, feels he is gradually getting better. He complains of dry dry cough with scant mucus production clear. He further reports he is getting PT/OT twice a day, however in between he is not permitted to get up and ambulate independently with a walker. He reports the plan is for discharge home on August 05, 2019. Pain denies any real pain CV (Dizzy, palpitations, BP, edema): Ongoing left lower extremity edema, he denies right lower extremity edema SOB/BARDALES: BARDALES, especially when off oxygen but none at rest Fever: Denies Diet: Improving appetite Bowel: Normal Activity: Gradually increasing C/O: None Subjective: Current Outpatient Medications: amiodarone (PACERONE) 200 mg tablet Take 1 tablet by mouth once daily. metoprolol tartrate, short acting, (LOPRESSOR) 25 mg tablet Take 1 tablet by mouth twice daily. acetaminophen (TYLENOL) 325 mg tablet Take 2 tablets by mouth every 4 hours as needed. aspirin 81 mg chewable tablet Take 2 tablets by mouth once daily. ferrous sulfate 325 mg (65 mg iron) tablet Take 1 tablet by mouth once daily. albuterol (PROVENTIL) 2.5 mg /3 mL (0.083 %) nebulizer solution Use 3 mL via nebulizer every 4 hours as needed for Wheezing/Shortness of Breath. ascorbic acid, vitamin C, (VITAMIN C) 500 mg tablet Take 1 tablet by mouth once daily. atorvastatin (LIPITOR) 40 mg tablet Take 1 tablet by mouth daily at bedtime. bisacodyl (DULCOLAX) 10 mg supp 1 Suppository by RECTAL route once daily as needed. folic acid 1 mg tablet Take 1 tablet by mouth once daily. furosemide (LASIX) 40 mg tablet Take 1 tablet by mouth once daily for 5 days. magnesium sulfate in water 2 gram/50 mL (4 %) pgbk Inject 50 mL intravenously as needed (see admin comments). polyethylene glycol 3350 (MIRALAX, GLYCOLAX) 17 gram packet Take 1 Packet by mouth once daily as needed. senna-docusate (SENNA-S) 8.6-50 mg per tablet Take 1 tablet by mouth twice daily as needed. tamsulosin ER (FLOMAX) 0.4 mg cap Take 0.4 mg by mouth once daily. Lactobacillus acidophilus/lact (LACTOBACILLUS ACIDOPH-LACTASE ORAL) Take by mouth twice daily. fluticasone (FLONASE ALLERGY RELIEF) 50 mcg/actuation nasal spray Use 1 [place] in each nostril once daily. Cholecalciferol, Vitamin D3, 5,000 unit cap Take 5,000 Units by mouth once daily. No current facility-administered medications for this visit. Patient has no known allergies. PAST MEDICAL HISTORY Diagnosis Date - Acute kidney injury (HCC) - Acute metabolic encephalopathy - Anemia - Aortic stenosis - Atrial fibrillation (HCC) - Bowel obstruction (HCC) - Coronary artery disease - Hyperlipidemia - Hypertension - Left bundle branch block - Mitral valve annular calcification - Prolonged QT interval - S/P AVR 07/04/[address] Cristhian Trifecta pericardial prosthesis at [facility] by Dr. 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 Rivers - Vitamin D deficiency PAST SURGICAL HISTORY Procedure Laterality Date - ATRIAL APPENDAGE LIGATION 07/04/2019 35 mm AtriCure clip at [facility] by Dr. Rivers - CABG (2) VEIN GRAFTS AND ARTERIAL GRAFT(S 07/04/2019 at [facility] by Dr. Rivers - REPAIR UMBILICAL HERNIA 12/04/2018 after bowel perforation done at [facility] Dr. Young - REPLAC AORT VALV PROSTH VALV 07/04/[address] Cristhian Trifecta pericardial prosthesis at [facility] by Dr. Rivers FAMILY HISTORY Problem Relation Age of Onset - Osteoporosis Mother - Heart Mother - Cancer Father Social History Tobacco Use - Smoking status: Former Smoker Packs/day: 1.00 Years: 5.00 Pack years: 5.00 Last attempt to quit: 11/23/1954 Years since quittin.7 - Smokeless tobacco: Never Used Substance Use Topics - Alcohol use: Yes Comment: social - Drug use: Never Review of Systems Constitutional: Negative for chills, fever and malaise/fatigue. Weight loss: Still volume overload +6 pounds from preop. HENT: Negative for sore throat. Respiratory: Positive for cough and shortness of breath. Negative for sputum production and wheezing. Cardiovascular: Positive for leg swelling (Left greater than right). Negative for chest pain, palpitations, orthopnea, claudication and PND. Gastrointestinal: Negative for abdominal pain, blood in stool, constipation, diarrhea, melena, nausea and vomiting. Genitourinary: Negative for dysuria. Musculoskeletal: Negative for falls and joint pain. Skin: No new lesions Neurological: Negative for dizziness, tingling, sensory change, focal weakness, weakness and headaches. Endo/Heme/Allergies: Does not bruise/bleed easily. Psychiatric/Behaviora l: Negative for depression. The patient does not have insomnia. Objective: Physical Examination: Vitals:BP 128/70 Pulse 82 Resp 18 Ht 6' 0 (1.83m) Wt 206 lb (93.4kg) SpO2 100[3 L o2]% BMI 27.93 kg/(m2). Last 2 Encounter Wt Readings: Date: Wt: 06/27/2019 200 lb (90.7 kg) 06/15/2019 211 lb 12.8 oz (96.1 kg) Physical Exam Constitutional: He is oriented to person, place, and time and well-developed, well-nourished, and in no distress. HENT: Head: Normocephalic. Eyes: Pupils are equal, round, and reactive to light. Cardiovascular: S1 normal, S2 normal and intact distal pulses. No murmur heard. Irregularly irregular per auscultation, likely atrial fibrillation Pulmonary/Chest: Effort normal and breath sounds normal. Patient resting pulse ox on room air 98-99%, post-ambulatory pulse ox 97-98% on room air - mild dyspnea noted. Abdominal: Soft. Normal appearance and bowel sounds are normal. Musculoskeletal: He exhibits edema (to 3+ left lower extremity, 1+ right lower extremity). Neurological: He is alert and oriented to person, place, and time. Gait normal. Patient ambulated in hallway, walked with assistance ?2 Later ambulated to the bathroom independently Skin: Skin is warm and intact. Midsternal incision clean dry, well approximated, no redness or drainage -scabbed and healing Sternum is stable Ct Sites closed SVG site clean dry, no redness, drainage, or hematoma Psychiatric: Mood and affect normal. Assessment and Plan: ASSESSMENT/PLAN: 1. S/P AVR (aortic valve replacement) - ICD9: V43.3, ICD10: Z95.2 (primary diagnosis) -Continue medical therapy with aspirin 162 mg (patient is receiving only 81 mg at [facility]), atorvastatin 40 mg daily, increase metoprolol to 50 mg 3 times a day - CARDIAC REHAB II OUTPT ([place], [place]) -4-6 weeks once recovered from surgery and f/u with Dr Ann - XR CHEST 2V FRONTAL/LAT -for next visit scheduled in 2 weeks 2. S/P CABG x 2 - ICD9: V45.81, ICD10: Z95.1 -As above - CARDIAC REHAB II OUTPT ([place], [place]) - XR CHEST 2V FRONTAL/LAT 3. Paroxysmal atrial fibrillation (HCC) - ICD9: 427.31, ICD10: I48.0 -Irregularly irregular in office -Increase metoprolol to 50 mg 3 times a day for rate control -Status post left atrial appendage ligation -Defer oral anticoagulation for now -Continue aspirin 162 mg 4. MAURO (acute kidney injury) (HCC) - ICD9: 584.9, ICD10: N17.9 -Creatinine 1.3-1.6 stable from preop -Continue Lasix 40 mg daily for fluid overload 5. Acute metabolic encephalopathy - ICD9: 348.31, ICD10: G93.41 -Improving mentation 6. Debility - ICD9: 799.3, ICD10: R53.81 -Increase ambulation at [facility] -Patient to ambulate with walker independently to prepare for home-going scheduled 08/05/2019 7. Pneumonia due to organism - ICD9: 486, ICD10: J18.9 -On vancomycin and cefepime for presumed pneumonia -[facility] -Patient with normal O2 saturation at rest and post ambulatory. -Wean O2 prior to discharge. Helena Bacon APRN.KEE In summary, Elias Shah is doing better overall after his combined CABG aVR surgery, with no major complaints. he should follow-up in this office in 2 weeks with Chest X-ray. Thanks. Electronically signed by Helena Bacon APRN.KEE on July 28, 2019, 12:54 PM [facility] CNPNon 07-21-2019 CNPN Telephone (AGVASACC) ELIAS SHAH ([id number]) 1940 M Date Time Provider Department 07/21/19 WAYNE RIVERS During your visit today, we recorded the following information about you: Brook Sweeney LPN 07/21/2019 2:45 PM Signed Janee constantino nurse at [facility], transitional care unit calls with concern of bradycardia. The pt has metoprolol ordered 75 mg tid but to hold with HR less than 60. Pt has not received a dose of this beta leyda since yesterday at 1400 due to consistent HR below 60. Pt is also on amiodarone 200mg bid and is receiving that dose as ordered. Janee would like to be sure our team is aware of the low HR and if there are new orders please call her directly # [phone]. If desired an EKG can be done at that facility. AMA Carson APRN.KEE, KEE 07/21/2019 4:17 PM Signed Return phone call to Janee at [facility]. She reports that Mr. Carreno heart rate has been upper 50s to low 60s. As a result he has not been consistently receiving his metoprolol 75 mg 3 times a day. She reports he is getting may be once a day. She further reports an EKG was done and that shows normal sinus rhythm sinus bradycardia with first-degree AV block. She reports that his blood pressure is stable between 120 and 140 systolic. I have asked that they decrease amiodarone to 200 mg daily, and decrease metoprolol to 25 mg twice a day, the metoprolol can be titrated up to accommodate heart rate and blood pressure. Mr. Carreno is to see me next week in follow-up. Janee verbalized understanding and agreed to this plan. Helena Bacon APRN.KEE Allergies As of Date: 07/21/2019 (No Known Allergies) Date Reviewed: 07/12/2019 Reviewed by: Lashon Shaikh) AGUSTO Hensley - Fully Assessed Reason for Visit: Heart rate concerns [Other] Order(s):amiodarone (PACERONE) 200 mg tabletTake 1 tablet by mouth once daily.Disp: Rfl: metoprolol tartrate, short acting, (LOPRESSOR) 25 mg tabletTake 1 tablet by mouth twice daily.Disp: Rfl: Prescriptions as of 07/21/2019 Sig: AMIODARONE 200 MG TABLET Take 1 tablet by mouth once d* METOPROLOL TARTRATE 25 MG TAB* Take 1 tablet by mouth twice * ACETAMINOPHEN 325 MG TABLET Take 2 tablets by mouth every* ASPIRIN 81 MG CHEWABLE TABLET Take 2 tablets by mouth once * FERROUS SULFATE 325 MG (65 MG* Take 1 tablet by mouth once d* ALBUTEROL SULFATE 2.5 MG/3 ML* Use 3 mL via nebulizer every * ASCORBIC ACID (VITAMIN C) 500* Take 1 tablet by mouth once d* ATORVASTATIN 40 MG TABLET Take 1 tablet by mouth daily * BISACODYL 10 MG RECTAL SUPPOS* 1 Suppository by RECTAL route* FOLIC ACID 1 MG TABLET Take 1 tablet by mouth once d* FUROSEMIDE 40 MG TABLET Take 1 tablet by mouth once d* MAGNESIUM SULFATE 2 GRAM/50 M* Inject 50 mL intravenously as* POLYETHYLENE GLYCOL 3350 17 G* Take 1 Packet by mouth once d* SENNOSIDES 8.6 MG-DOCUSATE SO* Take 1 tablet by mouth twice * TAMSULOSIN 0.4 MG CAPSULE Take 0.4 mg by mouth once basilio* LACTOBACILLUS ACIDOPH-LACTASE* Take by mouth twice daily. FLONASE ALLERGY RELIEF 50 MCG* Use 1 [place] in each nostril o* CHOLECALCIFEROL (VITAMIN D3) * Take 5,000 Units by mouth onc* Problem List As Of Date 07/21/2019 Noted Resolved Abnormal electrocardiogram (ECG) (EKG) [R94.31] INVALID FOR* Anemia, unspecified [D64.9] INVALID FOR* Aortic valve stenosis [I35.0] INVALID FOR* Atrial fibrillation with rapid ventricular resp*INVALID FOR* MAURO (acute kidney injury) (HCC) [N17.9] INVALID FOR* Acute metabolic encephalopathy [G93.41] INVALID FOR* Vitamin D deficiency [E55.9] INVALID FOR* Small bowel obstruction (HCC) [K56.609] INVALID FOR* Paroxysmal atrial fibrillation (HCC) [I48.0] INVALID FOR* LBBB (left bundle branch block) [I44.7] INVALID FOR* Incarcerated umbilical hernia [K42.0] INVALID FOR* Declining functional status [R53.81] INVALID FOR* Essential hypertension [I10] INVALID FOR* Hyperlipidemia [E78.5] INVALID FOR* Impaired cognition [R41.89] INVALID FOR* Aortic stenosis [I35.0] INVALID FOR* Malnutrition of moderate degree (HCC) [E44.0] INVALID FOR* S/P AVR (aortic valve replacement) [Z95.2] INVALID FOR* S/P CABG x 2 [Z95.1] INVALID FOR* Acute encephalopathy [G93.40] INVALID FOR* Coronary artery disease of emmonak artery of betty*INVALID FOR* Prescriptions ordered this encounter Disp Refills Start End AMIODARONE 200 MG TABLET 07/21/2019 Class: Med Update Route: ORAL Sig: Take 1 tablet by mouth once daily. METOPROLOL TARTRATE 25 MG TABLET 07/21/2019 Class: Med Update Route: ORAL Sig: Take 1 tablet by mouth twice daily. Medications Discontinued During This Encounter amiodarone (PACERONE) 200 mg tablet 07/13/2019 07/21/2019 Class: Med Update Route: ORAL Sig: Take 1 tablet by mouth twice daily. Disc: Adjust Sig - Block E-Cancel metoprolol tartrate, short acting, (* 07/13/2019 07/21/2019 Class: Med Update Route: ORAL Sig: Take 3 tablets by mouth every 8 hours. Disc: Adjust Sig - Block E-Cancel Encounter Status:Closed by HELENA BACON CNP on 07/21/19 [facility] CASE MANAGEMon 07-13-2019 CASE MANAGEM HNO ID: [id number] Author: Greg (Rn) AGUSTO Naqvi Service: Care Management Author Type: Registered Nurse Type: Care Mgt Progress Note Filed: 07/13/2019 1:55 PM Note Text: CARE MANAGEMENT PROGRESS NOTE SERVICE DATE: 07/13/2019 SERVICE TIME: 1352 LOS: 9 days Received call from [facility], they can accept pt in skilled unit. They were updated on filler picker time. Orders will be faxed as soon as MAHENDRA finalizes. left for pts sister Helena at pt request. SIGNATURE: Greg Naqvi RN PATIENT NAME: Elias Shah DATE: July 13, 2019 TIME: 1:52 PM PAGER/CONTACT #: [phone] [facility] CASE MANAGEM HNO ID: [id number] Author: Greg (Rn) AGUSTO Naqvi Service: Care Management Author Type: Registered Nurse Type: Care Mgt Progress Note Filed: 07/13/2019 1:43 PM Note Text: CARE MANAGEMENT PROGRESS NOTE SERVICE DATE: 07/13/2019 SERVICE TIME: 1324 LOS: 9 days Multiple calls [facility] to [facility] to see if they can accept pt. No answer was given in [employer] yesterday and [employer] is down today. [facility], she still feels pt is more appropriate for skilled and not acute rehab, states that the pt is 79 and he had a CABG. I did explain that the pt has been ambulating in the unit with minimal assist multiple times per day and PT/OT rec acute rehab. Facility requesting latest PT/OT to be faxed. Evals from 07/11 were faxed to [phone]. Await response. Pt is agreeable to go skilled if pt will not take for acute rehab. Anticipate dc later today. Ambulette set up fpr 4 pm. Still waiting on final acceptance from [place]. SIGNATURE: Greg Naqvi RN PATIENT NAME: Elias Shah DATE: July 13, 2019 TIME: 1:24 PM PAGER/CONTACT #: [phone] [facility] 07-13-2019 [facility] Telephone ([facility]) ELIAS SHAH ([id number]) 1940 M Date Time Provider Department 07/13/19 MARLON MILLAN) [facility] During your visit today, we recorded the following information about you: Marlon Millan PA-C 07/13/2019 4:09 PM Signed Please schedule follow up appointment in 1 week s/p AVR/ CABG/ left atrial appendage clip. Thanks! Allergies As of Date: 07/13/2019 (No Known Allergies) Date Reviewed: 07/12/2019 Reviewed by: Lashon Shaikh) AGUSTO Hensley - Fully Assessed Reason for Visit: Physician Specialist - Hospital Follow Up [3601] Prescriptions as of 07/13/2019 Sig: ACETAMINOPHEN 325 MG TABLET Take 2 tablets by mouth every* ASPIRIN 81 MG CHEWABLE TABLET Take 2 tablets by mouth once * FERROUS SULFATE 325 MG (65 MG* Take 1 tablet by mouth once d* ALBUTEROL SULFATE 2.5 MG/3 ML* Use 3 mL via nebulizer every * AMIODARONE 200 MG TABLET Take 1 tablet by mouth twice * ASCORBIC ACID (VITAMIN C) 500* Take 1 tablet by mouth once d* ATORVASTATIN 40 MG TABLET Take 1 tablet by mouth daily * BISACODYL 10 MG RECTAL SUPPOS* 1 Suppository by RECTAL route* FOLIC ACID 1 MG TABLET Take 1 tablet by mouth once d* FUROSEMIDE 40 MG TABLET Take 1 tablet by mouth once d* MAGNESIUM SULFATE 2 GRAM/50 M* Inject 50 mL intravenously as* METOPROLOL TARTRATE 25 MG TAB* Take 3 tablets by mouth every* POLYETHYLENE GLYCOL 3350 17 G* Take 1 Packet by mouth once d* POTASSIUM CHLORIDE ER 20 MEQ * Take 1 tablet by mouth once d* SENNOSIDES 8.6 MG-DOCUSATE SO* Take 1 tablet by mouth twice * TAMSULOSIN 0.4 MG CAPSULE Take 0.4 mg by mouth once basilio* LACTOBACILLUS ACIDOPH-LACTASE* Take by mouth twice daily. FLONASE ALLERGY RELIEF 50 MCG* Use 1 [place] in each nostril o* CHOLECALCIFEROL (VITAMIN D3) * Take 5,000 Units by mouth onc* Problem List As Of Date 07/13/2019 Noted Resolved Abnormal electrocardiogram (ECG) (EKG) [R94.31] INVALID FOR* Anemia, unspecified [D64.9] INVALID FOR* Aortic valve stenosis [I35.0] INVALID FOR* Atrial fibrillation with rapid ventricular resp*INVALID FOR* MAURO (acute kidney injury) (HCC) [N17.9] INVALID FOR* Acute metabolic encephalopathy [G93.41] INVALID FOR* Vitamin D deficiency [E55.9] INVALID FOR* Small bowel obstruction (HCC) [K56.609] INVALID FOR* Paroxysmal atrial fibrillation (HCC) [I48.0] INVALID FOR* LBBB (left bundle branch block) [I44.7] INVALID FOR* Incarcerated umbilical hernia [K42.0] INVALID FOR* Declining functional status [R53.81] INVALID FOR* Essential hypertension [I10] INVALID FOR* Hyperlipidemia [E78.5] INVALID FOR* Impaired cognition [R41.89] INVALID FOR* Aortic stenosis [I35.0] INVALID FOR* Malnutrition of moderate degree (HCC) [E44.0] INVALID FOR* S/P AVR (aortic valve replacement) [Z95.2] INVALID FOR* S/P CABG x 2 [Z95.1] INVALID FOR* Acute encephalopathy [G93.40] INVALID FOR* Coronary artery disease of emmonak artery of betty*INVALID FOR* Encounter Status:Closed by MARLON MILLAN PA-C on 07/13/19 [facility] CONSULT PROGon 07-13-2019 CONSULT PROG HNO ID: [id number] Author: Salomon ([employer].J[employer] B[employer] Tool Maker) ELIAS Roque Service: Electrophysiology Author Type: Nurse Specialist Type: Consult Progress Note Filed: 07/13/2019 1:15 PM Note Text: PROGRESS NOTE ELECTROPHYSIOLOGY SERVICE SERVICE DATE: 07/13/2019 SERVICE TIME: 10:47 AM Subjective INTERIM HISTORY: Patient seen AND examined. Saw him ambulating in [place] earlier. Now sitting in chair at bedside with legs elevated. States has some chest discomfort with coughing, but not expectorating. Denies SOB, palpitations, dizziness. States urine has cleared up without blood. Review of Systems Constitutional: Negative for chills, diaphoresis and fever. Respiratory: Positive for cough (moist). Negative for sputum production, shortness of breath and wheezing. Cardiovascular: Positive for chest pain (incisional discomfort) and leg swelling. Negative for palpitations and PND. Gastrointestinal: Negative for blood in stool, constipation, diarrhea, nausea and vomiting. Genitourinary: Negative for dysuria and hematuria. Neurological: Negative for dizziness and headaches. Objective PHYSICAL EXAM: Body mass index is 28.73 kg/m?. O2 Therapy: Room Air Patient Vitals for the past 24 hrs: BP Temp Temp src Pulse Resp SpO2 Weight 07/13/19 0825 131/90 ? ? 98 20 95 % ? 07/13/19 0743 137/86 ? ? 87 20 97 % ? 07/13/19 0710 ? 36.3 ?C (97.3 ?F) Temporal ? 07/13/19 0600 145/79 ? ? 80 20 96 % 96.1 kg (211 lb 12.8 oz) 07/13/19 0500 140/89 ? ? 91 24 98 % ? 07/13/19 0400 133/82 37.3 ?C (99.1 ?F) Temporal 75 15 96 % ? 07/13/19 0300 122/76 ? ? 78 16 96 % ? 07/13/19 0200 133/73 ? ? 78 16 97 % ? 07/13/19 0100 133/78 ? ? 77 15 96 % ? 07/13/19 0000 127/79 37.2 ?C (99 ?F) Temporal 73 15 98 % ? 07/12/19 2300 129/93 ? ? 86 20 98 % ? 07/12/19 2200 128/82 ? ? 87 21 98 % ? 07/12/19 2100 164/99 ? ? 90 23 98 % ? 07/12/19 2000 120/84 ? ? 93 23 98 % ? 07/12/19 1900 124/82 36.5 ?C (97.7 ?F) Temporal 95 22 97 % ? 07/12/19 1800 142/74 ? ? 109 27 99 % ? 07/12/19 1736 133/97 ? ? 104 ? ? ? 07/12/19 1700 133/97 ? ? 88 23 98 % ? 07/12/19 1600 138/97 ? ? 86 21 97 % ? 07/12/19 1500 127/80 36.5 ?C (97.7 ?F) Temporal 80 19 96 % ? 07/12/19 1429 123/87 ? ? 78 20 ? ? 07/12/19 1400 135/102 ? ? 82 24 99 % ? 07/12/19 1357 165/87 ? ? 80 ? ? ? 07/12/19 1300 114/71 ? ? 84 24 99 % ? 07/12/19 1200 107/73 ? ? 95 24 99 % ? 07/12/19 1100 144/89 36.8 ?C (98.2 ?F) Temporal 89 20 100 % ? Pleasant, comfortable, not in acute distress. SKIN: warm AND dry; pale color. HEENT: Normocephalic. NECK: Supple, no JVD, no carotid bruits auscultated. LUNGS: Decreased breath sounds with few scattered crackles AND no wheezing. Respirations unlabored at rest. Moist cough noted. Post-thorax vest on. CARDIAC: distant heart sounds; irregularly irregular rhythm, normal rate ABDOMEN: Soft, nontender to superficial palpation, bowel sounds auscultated. EXTREMITIES: 1+ edema lower extremities. Eusebio hose on. NEURO: awake, alert, moves all 4 extremities. PULSES: bilateral radial AND dorsalis pedis pulses palpable. MEDICATIONS: Current Facility-Administered Medications Medication Dose Route Frequency - tamsulosin ER 0.4 mg cap(s) (FLOMAX) 0.4 mg ORAL DAILY - aspirin 162 mg chewable tab(s) 162 mg ORAL DAILY - atorvastatin 40 mg tab(s) (LIPITOR) 40 mg ORAL AT BEDTIME - belladonna-opium 16.2-60 mg 1 Suppository suppository (B and O 16-A) 1 Suppository RECTAL BID PRN - senna-docusate 8.6-50 mg 1 tablet (SENNA-S) 1 tablet ORAL BID - polyethylene glycol 3350 17 g packet (MIRALAX, GLYCOLAX) 17 g ORAL DAILY - bisacodyl 10 mg suppository (DULCOLAX) 10 mg RECTAL DAILY PRN - pantoprazole DR 40 mg tab(s) (PROTONIX) 40 mg ORAL DAILY (6 AM) - ferrous sulfate 325 mg tab(s) 325 mg ORAL DAILY - ascorbic acid (vitamin C) 500 mg tab(s) (VITAMIN C) 500 mg ORAL DAILY - folic acid 1 mg tab(s) 1 mg ORAL DAILY - amLODIPine 5 mg tab(s) (NORVASC) 5 mg ORAL DAILY - acetaminophen 650 mg tab(s) (TYLENOL) 650 mg ORAL q 4 H PRN - albuterol 2.5 mg /3 mL (0.083 %) 2.5 mg (PROVENTIL) 2.5 mg INHALATION q 4 H PRN - albuterol 2.5 mg /3 mL (0.083 %) 2.5 mg (PROVENTIL) 2.5 mg INHALATION BID - metoprolol tartrate (short acting) (LOPRESSOR) tab(s) 75 mg 75 mg ORAL q 8 H - magnesium sulfate in water 2 g in sterile water 50 ml 2 g INTRAVENOUS PRN - amiodarone 200 mg tab(s) (PACERONE) 200 mg ORAL BID - guaiFENesin 600 mg ER tab(s) (MUCINEX) 600 mg ORAL q 12 H - benzonatate 100 mg cap(s) (TESSALON PERLE) 100 mg ORAL TID DATA: Diagnostic tests reviewed for today's visit: Most recent labs and imaging results. Most recent EKG - 07/12/19 at 9:22 AM - atrial fib with RVR (119 bpm), intermittent aberrant conduction vs NSVT, LBBB Most recent Echo - 07/09/19 CONCLUSIONS: - Technically difficult exam due to post op and body habitus. - Exam indication: Limited study S/P AVR 07/04/19 - The left ventricle is normal in size. Left ventricular systolic function is normal. EF = 65 ? 5% (2D biplane) Definity contrast used for endocardial border detection. Left ventricular diastolic function was not evaluated due to AF. - Trifecta prosthetic aortic valve (size #23), not well visualized. There is trace ?(trace - 1+) aortic valve regurgitation. The peak gradient is 15 mmHg, the mean gradient is 8 mmHg and the dimensionless valve index is 0.44. - Exam was compared with the prior echocardiographic exam performed on 07/04/2019. Patient is now s/p AVR. TELEMETRY/quality assurance monitor: Atrial fib in 80s, IVCD, occasional multiformed PVCs, no NSVT Past 72 Hour Labs: Recent Labs 07/13/19 0241 07/12/19 0935 07/12/19 0430 WBC -- -- 6.86 RBC -- -- 2.64* HB -- -- 7.9* HCT -- -- 24.3* MCV -- -- 92.0 MCH -- -- 29.9 MCHC -- -- 32.5 PLT -- -- 239 MPV -- -- 10.1 GLUC 105* -- 113* BUN 21* -- 22* CREAT 1.06 -- 1.12 NA 137 -- 139 K 4.1 -- 3.9 CHLOR 103 -- 106 CO2 29 -- 28 CA 8.4* -- 8.3* MG -- 1.9 -- Last Lab Drawn: No results found for this basename: TSH,PROBNP,TG,HDL,LDL ,CHOL Assessment/Plan Patient Active Hospital Problem List: Paroxysmal atrial fibrillation (HCC) (12/05/2018) Aortic stenosis (07/04/2019) Malnutrition of moderate degree (HCC) (07/08/2019) S/P AVR (aortic valve replacement) (07/09/2019) S/P CABG x 2 (07/09/2019) Acute encephalopathy (07/09/2019) 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 Rate controlled now on Amiodarone 200 mg BID AND Lopressor 75 mg Q8H. No evidence of NSVT. Not anticoagulated due to anemia, hematuria which is clearing. Echo May 20 showed mild left atrial dilatation. Continue rate control with current meds. Continue to monitor heart rate AND rhythm. SIGNATURE: Salomon Roque APRN.CARTOGRAPHY TEACHER PATIENT NAME: Elias Shah DATE: July 13, 2019 TIME: 10:47 AM PAGER/CONTACT #: [phone] [facility] PLAN OF CAREon 07-13-2019 PLAN OF CARE HNO ID: [id number] Author: Fabi De La Cruz (Harp Maker) Service: ? Author Type: ? Type: Plan of Care Filed: 07/13/2019 3:34 PM Note Text: SLIP FILLER BEDSIDE DELIVERY SURVEY 1. Patient to use [facility] Bedside Delivery - N/A Insurance Information as follows: 2. Insurance card on file - N/A 3. Credit card for payment - N/A Patient DC to SNF/acute rehab/inpatient facility, therefore not eligible for pharmacy bedside delivery service. Fabi De La Cruz ([employer]) [phone] [facility] PROGRESSon 07-13-2019 PROGRESS HNO ID: [id number] Author: Ronn Kincaid Service: Pulmonary Disease Author Type: Physician Type: Progress Notes Filed: 07/13/2019 9:34 AM Note Text: PULMONARY PROGRESS NOTE SERVICE DATE: July 13, 2019 SERVICE TIME: 9:20 AM Admission Date: 07/04/2019 AGE: [age] year old LOS: 9 days Patient is resting comfortably in a bed side chair on low flow O2 via nasal cannula without any current complaints. EXAM: VITAL SIGNS: Temp (24hrs), Av.8 ?C (98.2 ?F), Min:36.3 ?C (97.3 ?F), Max:37.3 ?C (99.1 ?F) BP 131/90 Pulse 98 Temp (Src) 97.3 (Temporal) Resp 20 Ht 6' 0 (1.83m) Wt 211 lb 12.8 oz (96.1kg) SpO2 95% BMI 28.72 kg/(m2). O2 Therapy: Room Air RRR Minimal scattered crackles bilaterally without wheezing bilaterally anteriorly. Scattered bowel sounds, soft, nontender, nondistended. No significant peripheral edema. Dry, intact skin with fair turgor. 24 hour Intake AND Output: Intake/Output Summary (Last 24 hours) at 07/13/2019 0920 Last data filed at 07/13/2019 0825 Gross per 24 hour Intake 1680 ml Output 2625 ml Net -945 ml CURRENT LABS: Glucose (mg/dL) Date Value 07/13/2019 105 Potassium (mEq/L) Date Value 07/13/2019 4.1 Sodium (mEq/L) Date Value 07/13/2019 137 Chloride (mEq/L) Date Value 07/13/2019 103 CO2 (mEq/L) Date Value 07/13/2019 29 Creatinine (mg/dL) Date Value 07/13/2019 1.06 BUN (mg/dL) Date Value 07/13/2019 21 Anion Gap (no units) Date Value 07/13/2019 9 Calcium (mg/dL) Date Value 07/13/2019 8.4 CBC: Hemoglobin (g/dL) Date Value 05/20/2019 12.6 HGB (g/dL) Date Value 07/12/2019 7.9 07/10/2019 7.7 07/09/2019 8.1 Hematocrit (%) Date Value 07/12/2019 24.3 07/10/2019 24.5 07/09/2019 25.0 WBC (thou/cmm) Date Value 07/12/2019 6.86 07/10/2019 8.00 07/09/2019 8.95 Recent Labs 07/13/19 0241 CO2 29 INPATIENT MEDICATIONS: Current Facility-Administered Medications Medication Dose Route Frequency - tamsulosin ER 0.4 mg cap(s) (FLOMAX) 0.4 mg ORAL DAILY - aspirin 162 mg chewable tab(s) 162 mg ORAL DAILY - atorvastatin 40 mg tab(s) (LIPITOR) 40 mg ORAL AT BEDTIME - belladonna-opium 16.2-60 mg 1 Suppository suppository (B and O 16-A) 1 Suppository RECTAL BID PRN - senna-docusate 8.6-50 mg 1 tablet (SENNA-S) 1 tablet ORAL BID - polyethylene glycol 3350 17 g packet (MIRALAX, GLYCOLAX) 17 g ORAL DAILY - bisacodyl 10 mg suppository (DULCOLAX) 10 mg RECTAL DAILY PRN - pantoprazole DR 40 mg tab(s) (PROTONIX) 40 mg ORAL DAILY (6 AM) - ferrous sulfate 325 mg tab(s) 325 mg ORAL DAILY - ascorbic acid (vitamin C) 500 mg tab(s) (VITAMIN C) 500 mg ORAL DAILY - folic acid 1 mg tab(s) 1 mg ORAL DAILY - amLODIPine 5 mg tab(s) (NORVASC) 5 mg ORAL DAILY - acetaminophen 650 mg tab(s) (TYLENOL) 650 mg ORAL q 4 H PRN - albuterol 2.5 mg /3 mL (0.083 %) 2.5 mg (PROVENTIL) 2.5 mg INHALATION q 4 H PRN - albuterol 2.5 mg /3 mL (0.083 %) 2.5 mg (PROVENTIL) 2.5 mg INHALATION BID - metoprolol tartrate (short acting) (LOPRESSOR) tab(s) 75 mg 75 mg ORAL q 8 H - magnesium sulfate in water 2 g in sterile water 50 ml 2 g INTRAVENOUS PRN - amiodarone 200 mg tab(s) (PACERONE) 200 mg ORAL BID - guaiFENesin 600 mg ER tab(s) (MUCINEX) 600 mg ORAL q 12 H - benzonatate 100 mg cap(s) (TESSALON PERLE) 100 mg ORAL TID Assessment/Plan ASSESSMENT: S/P AVR and 2 vessel CABG, POD # 9 Anticipated acute hypoxic post-operative respiratory insufficiency Acute encephalopathy---now resolved Multiple chronic medical problems PLAN: Doing well on room air. Wean O2 off as able. Hemodynamically stable. Continue coronary artery disease treatment as per Cardiovascular/Thorac ic Surgery. Out of bed/activity as able. PRN pain control. Incentive spirometry every hour while awake. Floor bed transfer when OK with CVICU. SIGNATURE: Ronn Kincaid MD [facility] DATE of SERVICE: July 13, 2019 TIME of SERVICE: 9:20 AM Normal [facility] PROGRESS HNO ID: [id number] Author: Jim Castro DO Service: Cardiac Surgery Author Type: Resident Type: Progress Notes Filed: 07/13/2019 10:20 AM Note Text: Attestation signed by Wayne Rivers at 07/14/2019 8:43 PM Attending Note I evaluated the patient and personally participated in the simmons components. I agree with the resident's findings and plan as documented and have discussed the case and management of the patient's care with the resident. Signature: Wayne Rivers MD Date: 07/14/2019 Time: 8:43 PM CARDIOTHORACIC SURGERY POSTOP PROGRESS NOTE SERVICE DATE: 07/13/2019 Subjective S/P SURGERY: Procedure(s) (LRB): AVR W/ CARDIOPULMONARY BYPASS W/ PROSTHETIC OTHER THAN HOMOGRAFT/ STENTLESS TISSUE VALVE (N/A) BYPASS GRAFT ARTERY CORONARY ON-PUMP SINGLE CORONARY ARTERIAL GRAFT (N/A) BYPASS GRAFT ARTERY CORONARY ON-PUMP USING VENOUS GRAFT(S) AND ARTERIAL GRAFT(S) SINGLE VEIN GRAFT (N/A) ENDOSCOPIC HARVEST VEIN FOR CORONARY ARTERY BYPASS PROCEDURE (N/A) DATE OF SURGERY: 07/04/2019 POSTOP DAY #9 LOS: 9 INTERVAL EVENTS / PERTINENT ROS: Admits to a persisting dry cough this AM. Feels like he has some phlegm that he has to expel but is unable to do so. No recent episodes of arrhythmias. Denies fevers, chills, CP, palpitations, SOB, cough, nausea, vomiting, constipation, diarrhea, urinary problems, or other complaints. Objective Admission Weight: 90.7 kg (200 lb) BP 131/90 Pulse 98 Temp 36.3 ?C (97.3 ?F) (Temporal) Resp 20 Ht 182.9 cm (6') Wt 96.1 kg (211 lb 12.8 oz) SpO2 95% BMI 28.73 kg/m? Body surface area is 2.21 meters squared. Min/Max/Average Temperature AND Blood Pressure: Temp (24hrs), Av.8 ?C (98.2 ?F), Min:36.3 ?C (97.3 ?F), Max:37.3 ?C (99.1 ?F) Systolic (24hrs), Av , Min:113 , Max:163 Diastolic (24hrs), Av, Min:64, Max:107 Intake/Output Summary (Last 24 hours) at 07/13/2019 1012 Last data filed at 07/13/2019 0825 Gross per 24 hour Intake 1680 ml Output 2375 ml Net -695 ml TELEMETRY: atrial fibrillation, rate controlled PHYSICAL EXAM: GEN: no acute distress, pleasant, resting comfortably HEENT: normocephalic, atraumatic, EOMI NECK: trachea midline, no JVD NEURO: Grossly normal cognition, motor function, and cranial nerves III-XII. AANDOx3 PSYCH: normal mood and affect CV: irregularly irregular on telemetry with PVCs RESP: 95% SpO2 on RA equal chest rise bilaterally ABD: Soft, no rebound, guarding, masses, organomegaly, or peritoneal signs BACK: nontender, normal curvatures EXT: LARA no edema UG: clear urine in urinal Lines, Drains, and Airways Line Peripheral 07/10/19 1100 Midline Right Antecubital 20 Gauge 2 days DATA: Diagnostic tests reviewed for today's visit: Recent Labs 07/13/19 0241 07/12/19 0935 07/12/19 0430 07/11/19 0950 07/10/19 1130 RBC -- -- 2.64* -- 2.61* WBC -- -- 6.86 -- 8.00 HB -- -- 7.9* -- 7.7* HCT -- -- 24.3* -- 24.5* PLT -- -- 239 -- 167 NA 137 -- 139 139 142 K 4.1 -- 3.9 3.7 3.7 CHLOR 103 -- 106 107 110* CO2 29 -- 28 26 26 BUN 21* -- 22* 29* 40* CREAT 1.06 -- 1.12 1.14 1.24* GLUC 105* -- 113* 152* 114* CA 8.4* -- 8.3* 8.2* 8.3* MG -- 1.9 -- -- -- P -- 2.9 -- -- -- ANION 9 -- 9 10 10 Assessment/Plan 79 yo male with severe symptomatic aortic stenosis, CAD, and paroxysmal atrial fibrillation who presented for elective AVR and myocardial revascularization on 07/04/19. Post op course has been complicated by intraop coagulopathy, altered mental status, hematuria, and anemia. ? 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 Trifecta valve and s/p CABGx2 (HARR[place]-LAD, SVG-ramus), postop Echo: normal bioprosthetic valve function - continue ASA, statin, BB - Pain control with Tylenol - Bowel regimen - temp pacing wires removed 07/11 - transfer to floor today - Cardiac rehab, likely needs placement ? Anticipated acute hypoxic pulmonary insufficiency s/p CTS - aggressive pulmonary hygiene - Proventil - Encourage IS and CANDDB - add mucinex and tessalon pearls today ? Paroxysmal Atrial Fibrillation - s/p LORENE clip on 07/04/19 - Rates controlled currently, but still in afib - c/w Metoprolol PO, appreciate EP recommendations - PO Amiodarone - LORENE excluded, hematuria resolved, could theoretically anticoagulate Debility - PT/OT> Acute Rehab - MBS with trace residuals, no aspiration ? Acute Encephalopathy - resolved ? HTN - improved - on home amlodipine, added metoprolol HLD - lipitor MAURO - resolved - s.p 20mg lasix 07/10 ? Acute blood loss anemia - stable - on iron, Vit C, folate ? Dysphagia - resolved, regular consistency with supervision - tolerating DIET HEART HEALTHY ? Hematuria - resolved, farley removed ? DVT ppx - SCDs - thrombocytopenia resolved - consider starting prophylaxis today GI PPx - PPI ? Tests/Labs Ordered: 1. BMP SIGNATURE: Jim Castro DO PATIENT NAME: Elias Shah DATE: July 13, 2019 TIME: 6:16 AM PAGER/CONTACT #: [phone] [facility] CASE MANAGEMon 07-12-2019 CASE MANAGEM HNO ID: [id number] Author: Greg (Rn) AGUSTO Naqvi Service: Care Management Author Type: Registered Nurse Type: Care Mgt Progress Note Filed: 07/12/2019 11:56 AM Note Text: CARE MANAGEMENT PROGRESS NOTE SERVICE DATE: 07/12/2019 SERVICE TIME: 1152 LOS: 8 days Received [facility] stating they feel pt is more appropriate for skilled unit, not acute rehab. They wanted to make sure this was ok with pt. Met with pt in room, explained difference between 2 levels of rehab, also spoke with RN. Pt is doing very well in room, has also been walking multiple laps around unit several times a day with RN. Also PT/OT rec acute rehab level. Pt prefers acute rehab. Message sent to [facility], await response. SIGNATURE: Greg Naqvi RN PATIENT NAME: Elias Shah DATE: July 12, 2019 TIME: 11:52 AM PAGER/CONTACT #: [phone] [facility] CONSULTon 07-12-2019 CONSULT HNO ID: [id number] Author: Alvin Jose Service: Electrophysiology Author Type: Physician Type: Consults Filed: 07/12/2019 11:26 AM Note Text: CONSULT: EP SERVICE SERVICE DATE: 07/12/2019 SERVICE TIME: 11:14 AM CONSULTING PHYSICIAN: Alvin Jose DO PCP: Mal Main MD ATTENDING: Wayne Rivers REASON FOR CONSULT: Arrhythmias Subjective CHIEF COMPLAINT: Nonrheumatic aortic (valve) stenosis [I35.0] Encounter for preprocedural cardiovascular examination [Z01.810] HISTORY OF PRESENT ILLNESS: Mr. Shah is a 79 year old male who presents for evaluation of possible NSVT post OHS. Mr. Shah underwent a CABG with AVR on 07/04/19 and developed postoperative atrial fibrillation with RVR. His rates are currently in the 80s but had received IV metoprolol earlier that seemed to improve his rates, he is on IV amiodarone and metoprolol. He is not anticoagulated due to concerns about hematuria, just had his farley removed. THere is also mention in his chart of prior anemia with history of heme positive stool. His appendage was occluded during his surgical procedure. He denies history of atrial fibrillation prior to his procedure. Of note his echo in April indicated mild LAE suggesting a predisposition. When his rates increase in rate he appears to regularize and has slight increase in his QRSd raising concern for NSVT, I reviewed his telemetry and his rhythm strips all of the episodes appear to show afib with RVR. I only saw occassional PVC and one ventricular triplet. PAST MEDICAL HISTORY Diagnosis Date - Acute kidney injury (HCC) - Acute metabolic encephalopathy - Anemia - Aortic stenosis - Atrial fibrillation (HCC) - Bowel obstruction (HCC) - Coronary artery disease - Hyperlipidemia - Hypertension - Left bundle branch block - Mitral valve annular calcification - Prolonged QT interval - Vitamin D deficiency PAST SURGICAL HISTORY Procedure Laterality Date - REPAIR UMBILICAL HERNIA 12/04/2018 after bowel perforation done at [facility] Dr. Young FAMILY HISTORY Problem Relation Age of Onset - Osteoporosis Mother - Heart Mother - Cancer Father Social History Tobacco Use - Smoking status: Former Smoker Packs/day: 1.00 Years: 5.00 Pack years: 5.00 Last attempt to quit: 11/23/1954 Years since quittin.6 - Smokeless tobacco: Never Used Substance Use Topics - Alcohol use: Yes Comment: social - Drug use: Never Prior to Admission Medications Prescriptions Last Dose Informant Patient Reported? Taking? Acetaminophen 500 mg cap Unknown at Unknown time Yes No Sig: Take 2 capsules by mouth twice daily as needed. Cholecalciferol, Vitamin D3, 5,000 unit cap 07/03/2019 at Unknown time Yes Yes Sig: Take 5,000 Units by mouth once daily. Lactobacillus acidophilus/lact (LACTOBACILLUS ACIDOPH-LACTASE ORAL) 07/03/2019 at Unknown time Yes Yes Sig: Take by mouth twice daily. amLODIPine (NORVASC) 5 mg tablet 07/03/2019 at Unknown time Yes Yes Sig: Take 5 mg by mouth once daily. aspirin 81 mg chewable tablet 07/04/2019 at 0300 Yes Yes Sig: Take 324 mg by mouth one time only. carvedilol (COREG) 25 mg tablet 07/04/2019 at 0300 Yes Yes Sig: Take 25 mg by mouth twice daily with meals. ferrous sulfate 325 mg (65 mg iron) tablet 07/03/2019 at Unknown time Yes Yes Sig: Take 325 mg by mouth daily with breakfast. fluticasone (FLONASE ALLERGY RELIEF) 50 mcg/actuation nasal spray 07/03/2019 at Unknown time Yes Yes Sig: Use 1 [place] in each nostril once daily. loperamide (IMODIUM) 2 mg cap(s) Unknown at Unknown time Yes No Sig: Take 2 mg by mouth once daily. magnesium, aluminum hydroxide (MY[place] ORAL) Unknown at Unknown time Yes No Sig: Take by mouth. as needed for indigestion ondansetron (ZOFRAN) 4 mg tablet Unknown at Unknown time Yes No Sig: Take 4 mg by mouth every 8 hours as needed. rosuvastatin (CRESTOR) 5 mg tablet 07/03/2019 at Unknown time Yes Yes Sig: Take 5 mg by mouth once daily. tamsulosin ER (FLOMAX) 0.4 mg cap 07/03/2019 at Unknown time Yes Yes Sig: Take 0.4 mg by mouth once daily. Facility-Administered Medications: None Current Facility-Administered Medications Medication Dose Route Frequency - tamsulosin ER 0.4 mg cap(s) (FLOMAX) 0.4 mg ORAL DAILY - aspirin 162 mg chewable tab(s) 162 mg ORAL DAILY - atorvastatin 40 mg tab(s) (LIPITOR) 40 mg ORAL AT BEDTIME - belladonna-opium 16.2-60 mg 1 Suppository suppository (B and O 16-A) 1 Suppository RECTAL BID PRN - senna-docusate 8.6-50 mg 1 tablet (SENNA-S) 1 tablet ORAL BID - polyethylene glycol 3350 17 g packet (MIRALAX, GLYCOLAX) 17 g ORAL DAILY - bisacodyl 10 mg suppository (DULCOLAX) 10 mg RECTAL DAILY PRN - pantoprazole DR 40 mg tab(s) (PROTONIX) 40 mg ORAL DAILY (6 AM) - ferrous sulfate 325 mg tab(s) 325 mg ORAL DAILY - ascorbic acid (vitamin C) 500 mg tab(s) (VITAMIN C) 500 mg ORAL DAILY - folic acid 1 mg tab(s) 1 mg ORAL DAILY - amLODIPine 5 mg tab(s) (NORVASC) 5 mg ORAL DAILY - amiodarone 200 mg tab(s) (PACERONE) 200 mg ORAL TID - acetaminophen 650 mg tab(s) (TYLENOL) 650 mg ORAL q 4 H PRN - albuterol 2.5 mg /3 mL (0.083 %) 2.5 mg (PROVENTIL) 2.5 mg INHALATION q 4 H PRN - albuterol 2.5 mg /3 mL (0.083 %) 2.5 mg (PROVENTIL) 2.5 mg INHALATION BID - metoprolol tartrate (short acting) 100 mg tab(s) (LOPRESSOR) 100 mg ORAL q 12 H ALLERGIES No Known Allergies CARDIAC STATUS: Chest Pain: postoperative Dyspnea: Negative Ankle Edema: Negative Arrhythmia: atrial fibrillation with RVR Functional Capacity: reduced REVIEW OF SYSTEMS: The following systems were reviewed with the patient, and are unremarkable other than as described below. SYSTEMIC: No fever, chills, or change in weight or appetite HEENT: No recent change in vision or hearing. CARDIOVASCULAR: increased HRs more marked with acitivity GI: No recent nausea, vomiting or diarrhea. : hematuria being evaluated by urology SKIN: No recent itching or eruption. PSYCH: No recent active anxiety or depression. HEMATOLOGY/LYMPHOLOGY history of anemia ENDOCRINE: No recent polyuria or heat intolerance. NEURO: No recent TIA, stroke or seizures. RHEUMATOLOGY: No recent active connective tissue disease. Objective PHYSICAL EXAM: Pleasant, comfortable, not in acute distress. Awake, alert, oriented times 3. Moves all extremities. SKIN: No rash or lumps. HEENT: Normocephalic, face symmetrical. NECK: Supple, no JVD, no carotid bruit, no thyromegaly. LUNGS: Clear to auscultation bilaterally. CARDIAC: irregular, Atrial fibrillation, rate in the 80s when I saw him. ABDOMEN: Soft, nontender, bowel sounds present. EXTREMITIES: No edema. PULSES: Peripheral pulses present. Body mass index is 29 kg/m?. O2 Therapy: Nasal Cannula No data recorded Patient Vitals for the past 48 hrs: BP Temp Temp src Pulse Resp SpO2 Weight 07/12/19 1100 144/89 ? ? 89 20 100 % ? 07/12/19 1012 147/85 ? ? 105 ? ? ? 07/12/19 1000 147/85 ? ? 114 22 98 % ? 07/12/19 0900 124/85 ? ? 119 20 99 % ? 07/12/19 0857 139/84 ? ? (!) 135 ? ? ? 07/12/19 0856 ? ? ? (!) 135 ? ? ? 07/12/19 0800 139/84 ? ? 115 22 100 % ? 07/12/19 0742 ? 36.2 ?C (97.2 ?F) Temporal 97 20 98 % ? 07/12/19 0700 115/92 ? ? (!) 122 22 100 % ? 07/12/19 0622 ? 97 kg (213 lb 13.5 oz) 07/12/19 0600 149/97 ? ? 88 16 100 % 99.1 kg (218 lb 7.6 oz) 07/12/19 0500 147/89 ? ? 99 23 100 % ? 07/12/19 0400 151/98 36.9 ?C (98.4 ?F) ? 87 18 99 % ? 07/12/19 0300 161/80 ? ? 92 22 98 % ? 07/12/19 0200 144/83 ? ? 94 22 99 % ? 07/12/19 0100 153/97 ? ? 90 21 100 % ? 07/12/19 0000 127/81 ? ? 89 22 100 % ? 07/11/19 2300 109/81 ? ? 88 21 90 % ? 07/11/19 2100 161/90 ? ? 112 27 99 % ? 07/11/19 2000 116/102 ? ? 97 23 100 % ? 07/11/19 1800 123/71 ? ? 107 25 94 % ? 07/11/19 1700 141/93 ? ? 93 22 100 % ? 07/11/19 1640 123/77 ? ? 86 18 99 % ? 07/11/19 1620 153/92 ? ? 91 24 99 % ? 07/11/19 1605 139/97 ? 07/11/19 1600 139/97 ? ? 96 24 99 % ? 07/11/19 1550 139/108 ? ? 97 25 98 % ? 07/11/19 1540 136/84 ? ? 96 26 99 % ? 07/11/19 1500 132/85 36.5 ?C (97.7 ?F) ? 98 23 97 % ? 07/11/19 1400 163/109 ? ? 98 24 96 % ? 07/11/19 1308 148/82 ? ? 96 ? ? ? 07/11/19 1300 148/82 ? ? 96 25 98 % ? 07/11/19 1200 135/75 ? ? 95 22 98 % ? 07/11/19 1100 133/76 ? 07/11/19 1000 103/74 ? ? 91 22 98 % ? 07/11/19 0900 151/82 ? ? 108 24 100 % 97.9 kg (215 lb 13.3 oz) 07/11/19 0818 119/90 ? ? (!) 126 ? ? ? 07/11/19 0817 119/90 ? ? (!) 126 ? ? ? 07/11/19 0816 119/90 ? ? (!) 126 ? ? ? 07/11/19 0800 119/90 36.4 ?C (97.5 ?F) Temporal 103 23 99 % ? 07/11/19 0700 148/97 ? ? 104 26 100 % ? 07/11/19 0600 153/97 ? ? 102 22 100 % ? 07/11/19 0500 154/100 ? ? 94 19 99 % ? 07/11/19 0400 (!) 169/141 ? ? 96 22 ? ? 07/11/19 0300 152/114 ? ? 83 18 100 % ? 07/11/19 0200 (!) 151/135 ? ? 88 21 100 % ? 07/11/19 0100 151/81 ? ? 87 22 99 % ? 07/11/19 0000 163/89 ? ? 86 22 99 % ? 07/10/19 2300 (!) 158/136 ? ? 81 21 100 % ? 07/10/19 2200 139/88 ? ? 87 25 100 % ? 07/10/19 2100 155/76 ? ? 93 22 100 % ? 07/10/19 2000 149/73 ? ? 96 24 100 % ? 07/10/19 1931 ? ? ? 100 19 100 % ? 07/10/19 1900 149/93 36.5 ?C (97.7 ?F) ? 92 20 100 % ? 07/10/19 1800 150/86 ? ? 101 22 ? ? 07/10/19 1700 159/83 ? ? 92 23 ? ? 07/10/19 1600 141/91 ? ? 93 23 ? ? 07/10/19 1500 144/78 ? ? 90 24 ? ? 07/10/19 1400 117/97 ? ? 92 25 ? ? 07/10/19 1300 134/67 ? ? 97 22 ? ? 07/10/19 1200 126/82 ? ? 89 24 ? ? DATA: Diagnostic tests reviewed for today's visit: Most recent labs Most recent imaging Most recent EKG Past 72 Hour Labs: Recent Labs 07/12/19 0935 07/12/19 0430 WBC -- 6.86 RBC -- 2.64* HB -- 7.9* HCT -- 24.3* MCV -- 92.0 MCH -- 29.9 MCHC -- 32.5 PLT -- 239 MPV -- 10.1 GLUC -- 113* BUN -- 22* CREAT -- 1.12 NA -- 139 K -- 3.9 CHLOR -- 106 CO2 -- 28 CA -- 8.3* MG 1.9 -- Last Lab Drawn: No results found for this basename: TSH,PROBNP,TG,HDL,LDL ,CHOL Prior Cardiac Workup: see emr Impression/Recommenda tions Active Problems: Paroxysmal atrial fibrillation (HCC) POA: Yes Assessment AND Plan: Mr. Shah has elevated rates, but that he came down nicely with a single IV dose of metoprolol indicates that he is beta leyda sensative, his oral dose was increased, so I will make no change at this time. Note: if persistent difficulty controlling rates would recommend consider going to Q8H metoprolol tartrate as this dosing schedule can often time improve outcome over bid. He was increased to 100mg BID, if convert to tid would start at a lower dose to avoid overdoing his rate control. As he is not a candidate for anticoagulation at this time, my advice is to continue rate control. He had his appendage occluded which likely lowers his risk for thromboembolism. 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 * Orders reviewed and I agree with the cardiac orders. Additional orders include . SIGNATURE: Alvin Jose DO PATIENT NAME: Elias Shah DATE: July 12, 2019 TIME: 11:14 AM PAGER/CONTACT #: [phone] [facility] ECG COMPLETEon 07-12-2019 ECG COMPLETE NAME : ELIAS SHAH PID : [id number] : 1940 Gender : Male Race : ORD : [id number] Procedure Date : Jul 12 2019 09:22:34 Edit Date : Jul 12 2019 20:58:12 Diagnosis:ATRIAL FIBRILLATION WITH RAPID VENTRICULAR RESPONSE , INTERMITTENT ABERRANT CONDUCTION, VERSUS NONSUSTAINED VENTRICULAR TACHYCARDIA LEFT AXIS DEVIATION LEFT BUNDLE BRANCH BLOCK ABNORMAL ECG WHEN COMPARED WITH ECG OF 09-JUL-2019 06:15, LEFT BUNDLE BRANCH BLOCK HAS REPLACED INCOMPLETE RIGHT BUNDLE BRANCH BLOCK CRITERIA FOR INFERIOR INFARCT ARE NO LONGER PRESENT Confirmed by MD ESCALANTE VINAYAK ([id number]) on 07/12/2019 8:58:11 PM Ventricular Rate : 119 BPM Atrial Rate : 119 BPM QRS Duration : 150 ms Q-T Interval : 396 ms QTC Calculation(Bazett) : 557 ms R Hammond : -58 degrees T Hammond : 114 degrees Test Reason : Arrhythmia Location : 6 : [facility] [address] Overread By : MD ESCALANTE VINAYAK Edited By : MD ESCALANTE VINAYAK Referred By : WAYNE RIVERS Acquired by : MARLON MAYER [facility] NURSING PROGon 07-12-2019 NURSING PROG HNO ID: [id number] Author: Suni GusmanRn) AGUSTO Maguire Service: ? Author Type: Registered Nurse Type: Nursing Progress Note Filed: 07/12/2019 1:51 PM Note Text: Attempted to ambulate after lunch, pt able to stand and began walking with minimal assist. Pt got to second doorway and began complaining of feeling faint, pt heart rate dropped to 47. Pt sat down in chair, legs elevated and BP checked resulted 165/87. Will continue to monitor [facility] NURSING PROG HNO ID: [id number] Author: Suni Shaikh) AGUSTO Maguire Service: ? Author Type: Registered Nurse Type: Nursing Progress Note Filed: 07/12/2019 11:15 AM Note Text: Dr Cruz At bedside for EP consult [facility] NURSING PROG HNO ID: [id number] Author: Suni (Rn) AGUSTO Maguire Service: ? Author Type: Registered Nurse Type: Nursing Progress Note Filed: 07/12/2019 11:14 AM Note Text: Pt was in what appears to be a perfusing Vtach upon first assessment this morning at shift change. Pt has maintained orientation, mentation appropriate and blood pressures stable throughout all events. Pt continued to show a sustained ventricular rhythm with elevated rates, PA notified of arrythmias due to orders to transfer to the floor and nurses concern for possible deterioration. Will continue to monitor [facility] PROGRESSon 07-12-2019 PROGRESS HNO ID: [id number] Author: Marlon Roa) Yana Service: Cardiovascular Surgery Author Type: Physician [employer] Pressing Machine Operator Type: Progress Notes Filed: 07/12/2019 5:32 PM Note Text: CARDIOTHORACIC SURGERY POSTOP PROGRESS NOTE SERVICE DATE: 07/12/2019 SERVICE TIME: 2:17 PM Subjective S/P SURGERY: Procedure(s) (LRB): AVR W/ CARDIOPULMONARY BYPASS W/ PROSTHETIC OTHER THAN HOMOGRAFT/ STENTLESS TISSUE VALVE (N/A) BYPASS GRAFT ARTERY CORONARY ON-PUMP SINGLE CORONARY ARTERIAL GRAFT (N/A) BYPASS GRAFT ARTERY CORONARY ON-PUMP USING VENOUS GRAFT(S) AND ARTERIAL GRAFT(S) SINGLE VEIN GRAFT (N/A) ENDOSCOPIC HARVEST VEIN FOR CORONARY ARTERY BYPASS PROCEDURE (N/A) DATE OF SURGERY: 07/04/2019 POSTOP DAY #8 LOS: 8 INTERVAL EVENTS / PERTINENT ROS: Patient seen and examined. Tachy arrhthymia again noted overnight. Patient not symptomatic. While ambulating today, became tobias. Objective Admission Weight: 90.7 kg (200 lb) BP 165/87 Pulse 80 Temp 36.8 ?C (98.2 ?F) (Temporal) Resp 20 Ht 182.9 cm (6') Wt 97 kg (213 lb 13.5 oz) SpO2 100% BMI 29.00 kg/m? Body surface area is 2.22 meters squared. Min/Max/Average Temperature AND Blood Pressure: Temp (24hrs), Av.6 ?C (97.9 ?F), Min:36.2 ?C (97.2 ?F), Max:36.9 ?C (98.4 ?F) Systolic (24hrs), Av , Min:109 , Max:165 Diastolic (24hrs), Av, Min:71, Max:108 Intake/Output Summary (Last 24 hours) at 07/12/2019 1417 Last data filed at 07/12/2019 1100 Gross per 24 hour Intake 1150 ml Output 3310 ml Net -2160 ml TELEMETRY: atrial fibrillation RVR PHYSICAL EXAM: General Appearance: In chair with vest on. Eating dinner. NAD. Looks good!! Skin: Midsternal incision dry AND intact. SVG incisions dry AND intact. CT dry/ healing Neck: no JVD Lungs: decreased breath sounds more at left base. Heart:Tachy/ irregular Peripheral Vascular/Arteries: radial 2+, DP 2+ Abdomen: soft, non-tender and bowel sounds present Neurologic/Psychiatri c: alert and follows all commands. NFD. Extremities: 2+ LE B/L Lines, Drains, and Airways Line Peripheral 07/10/19 1100 Midline Right Antecubital 20 Gauge 2 days DATA: Diagnostic tests reviewed for today's visit: Recent Labs 07/12/19 0935 07/12/19 0430 07/11/19 0950 07/10/19 1130 RBC -- 2.64* -- 2.61* WBC -- 6.86 -- 8.00 HB -- 7.9* -- 7.7* HCT -- 24.3* -- 24.5* PLT -- 239 -- 167 NA -- 139 139 142 K -- 3.9 3.7 3.7 CHLOR -- 106 107 110* CO2 -- 28 26 26 BUN -- 22* 29* 40* CREAT -- 1.12 1.14 1.24* GLUC -- 113* 152* 114* CA -- 8.3* 8.2* 8.3* MG 1.9 -- -- -- P 2.9 -- -- -- ANION -- 9 10 10 Assessment/Plan CAD -s/p CABG x?2 (H[place]?and reversed SVG?to the ?ramus intermedius branch) -POD#8 -Medical management with ASA?162, atorvastatin?40, Metoprolol 75 TID -Post operative vest support? -IS/ ambulation/ PT -Cardiac rehab? ? Severe -s/p Aortic valve replacement with?[address] Cristhian Trifecta -POD #8 -Medical management with ASA 162 -Repeat echo -1+ aortic valve regurgitation -Peak gradient is 15 mmHg -peak velocity = 195.1 cm/s -Mean gradient is 8 mmHg -LVOT mean velocity is 60.8 cm/s -Aortic VTI is 32.5 cm -Mean velocity in the aortic valve is 135.5 cm/s -Dimensionless valve index is 0.44 ? Paroxysmal atrial fibrillation/ Afib RVR -Initial concern for NSVT but when reviewed with EP rhythm was afib -s/p?exclusion of left atrial appendage with a 35 mm AtriCure clip -POD#8 -Currently on rhythm/ rate control with amio 200 BID AND metoprolol 75 TID at recs of EP -CHADS2: 2 -CHADS2 VASC: 4 -No OAC 2/2 hematuria -Correct Mg/ K+ ? Acute encephalopathy -Likely from narcotics -Resolved ?? MAURO -Likely from ATN -Resolved -Cr now 1.12 from 1.14 (peaked at 1.71 07/07)? ? Mild dysphagia -s/p barium test today -ST recs: -Feed / Eat at a slow rate -Sit upright 90 degrees for all PO -Small Bite/Sip ? Coagulopathy -s/p 1 unit cryoprecipitate intraoperatively -s/p 4 units PRBC ? Thrombocytopenia -s/p?10?pack platelets -Monitor -Defer Lovenox?2/2 hematuria ? ? Hematuria -s/p Farley removal -Resolved ? ? Acute blood loss anemia -2/2 OR and hematuria -Fe, Folate, Vit C -Hgb trending up ? BPH -Flomax ? GI PPX -Protonix? ? VTE PPX -SCD -Defer Lovenox 2/2 hematuria ? Diet -Heart healthy? Likely DC Tests/Labs Ordered: 1. CXR 2. BMP Reviewed with Dr. Rivers and CVICU team SIGNATURE: Marlon Millan PA-C PATIENT NAME: Elias Shah DATE: July 12, 2019 TIME: 2:17 PM PAGER/CONTACT #: [phone] ETX [id number] [facility] PROGRESS HNO ID: [id number] Author: Ronn Kincaid Service: Pulmonary Disease Author Type: Physician Type: Progress Notes Filed: 07/12/2019 9:46 AM Note Text: PULMONARY PROGRESS NOTE SERVICE DATE: July 12, 2019 SERVICE TIME: 9:36 AM Admission Date: 07/04/2019 AGE: [age] year old LOS: 8 days Patient is resting comfortably in a bed side chair on low flow O2 via nasal cannula without any current complaints. EXAM: VITAL SIGNS: Temp (24hrs), Av.6 ?C (97.8 ?F), Min:36.2 ?C (97.2 ?F), Max:36.9 ?C (98.4 ?F) BP 124/85 Pulse 119 Temp (Src) 97.2 (Temporal) Resp 20 Ht 6' 0 (1.83m) Wt 213 lb 13.5 oz (97.0kg) SpO2 99% BMI 29.00 kg/(m2). O2 Therapy: Nasal Cannula, Liters: 2, %FIO2: 2(decreased Oxygen to 1 L to wean) RRR Few scattered crackles bilaterally without wheezing bilaterally anteriorly. Scattered bowel sounds, soft, nontender, nondistended. No significant peripheral edema. Dry, intact skin with fair turgor. 24 hour Intake AND Output: Intake/Output Summary (Last 24 hours) at 07/12/2019 0936 Last data filed at 07/12/2019 0700 Gross per 24 hour Intake 730 ml Output 2910 ml Net -2180 ml CURRENT LABS: Glucose (mg/dL) Date Value 07/12/2019 113 Potassium (mEq/L) Date Value 07/12/2019 3.9 Sodium (mEq/L) Date Value 07/12/2019 139 Chloride (mEq/L) Date Value 07/12/2019 106 CO2 (mEq/L) Date Value 07/12/2019 28 Creatinine (mg/dL) Date Value 07/12/2019 1.12 BUN (mg/dL) Date Value 07/12/2019 22 Anion Gap (no units) Date Value 07/12/2019 9 Calcium (mg/dL) Date Value 07/12/2019 8.3 CBC: Hemoglobin (g/dL) Date Value 05/20/2019 12.6 HGB (g/dL) Date Value 07/12/2019 7.9 07/10/2019 7.7 07/09/2019 8.1 Hematocrit (%) Date Value 07/12/2019 24.3 07/10/2019 24.5 07/09/2019 25.0 WBC (thou/cmm) Date Value 07/12/2019 6.86 07/10/2019 8.00 07/09/2019 8.95 Recent Labs 07/12/19 0430 CO2 28 INPATIENT MEDICATIONS: Current Facility-Administered Medications Medication Dose Route Frequency - tamsulosin ER 0.4 mg cap(s) (FLOMAX) 0.4 mg ORAL DAILY - aspirin 162 mg chewable tab(s) 162 mg ORAL DAILY - atorvastatin 40 mg tab(s) (LIPITOR) 40 mg ORAL AT BEDTIME - belladonna-opium 16.2-60 mg 1 Suppository suppository (B and O 16-A) 1 Suppository RECTAL BID PRN - senna-docusate 8.6-50 mg 1 tablet (SENNA-S) 1 tablet ORAL BID - polyethylene glycol 3350 17 g packet (MIRALAX, GLYCOLAX) 17 g ORAL DAILY - bisacodyl 10 mg suppository (DULCOLAX) 10 mg RECTAL DAILY PRN - pantoprazole DR 40 mg tab(s) (PROTONIX) 40 mg ORAL DAILY (6 AM) - ferrous sulfate 325 mg tab(s) 325 mg ORAL DAILY - ascorbic acid (vitamin C) 500 mg tab(s) (VITAMIN C) 500 mg ORAL DAILY - folic acid 1 mg tab(s) 1 mg ORAL DAILY - amLODIPine 5 mg tab(s) (NORVASC) 5 mg ORAL DAILY - amiodarone 200 mg tab(s) (PACERONE) 200 mg ORAL TID - acetaminophen 650 mg tab(s) (TYLENOL) 650 mg ORAL q 4 H PRN - albuterol 2.5 mg /3 mL (0.083 %) 2.5 mg (PROVENTIL) 2.5 mg INHALATION q 4 H PRN - albuterol 2.5 mg /3 mL (0.083 %) 2.5 mg (PROVENTIL) 2.5 mg INHALATION BID - metoprolol tartrate (short acting) 50 mg tab(s) (LOPRESSOR) 50 mg ORAL q 12 H Assessment/Plan ASSESSMENT: S/P AVR and 2 vessel CABG, POD # 8 Anticipated acute hypoxic post-operative respiratory insufficiency Acute encephalopathy---now resolved Multiple chronic medical problems PLAN: Doing well on low flow (2 L/minute) nasal cannula O2. Wean O2 off as able. Hemodynamically stable. Continue coronary artery disease treatment as per Cardiovascular/Thorac ic Surgery. Out of bed/activity as able. PRN pain control. Incentive spirometry every hour while awake. Await floor bed availability for transfer. SIGNATURE: Ronn Kincaid MD [facility] DATE of SERVICE: July 12, 2019 TIME of SERVICE: 9:36 AM [facility] PROGRESS HNO ID: [id number] Author: Jim Castro DO Service: Cardiac Surgery Author Type: Resident Type: Progress Notes Filed: 07/12/2019 6:53 AM Note Text: Attestation signed by Wayne Rivers at 07/14/2019 2:30 PM Attending Note I evaluated the patient and personally participated in the simmons components. I agree with the resident's findings and plan as documented and have discussed the case and management of the patient's care with the resident. Signature: Wayne Rivers MD Date: 07/14/2019 Time: 2:30 PM CARDIOTHORACIC SURGERY POSTOP PROGRESS NOTE SERVICE DATE: 07/12/2019 Subjective S/P SURGERY: Procedure(s) (LRB): AVR W/ CARDIOPULMONARY BYPASS W/ PROSTHETIC OTHER THAN HOMOGRAFT/ STENTLESS TISSUE VALVE (N/A) BYPASS GRAFT ARTERY CORONARY ON-PUMP SINGLE CORONARY ARTERIAL GRAFT (N/A) BYPASS GRAFT ARTERY CORONARY ON-PUMP USING VENOUS GRAFT(S) AND ARTERIAL GRAFT(S) SINGLE VEIN GRAFT (N/A) ENDOSCOPIC HARVEST VEIN FOR CORONARY ARTERY BYPASS PROCEDURE (N/A) DATE OF SURGERY: 07/04/2019 POSTOP DAY #8 LOS: 8 INTERVAL EVENTS / PERTINENT ROS: Getting ready to go for a walk this AM. Nursing concerned that HR increased to 130s while ambulating with PVCs and runs of Vtach, although pt remained asymptomatic. Transferred to the floor but no beds available. Denies fevers, chills, CP, palpitations, SOB, cough, nausea, vomiting, constipation, diarrhea, urinary problems, or other complaints. Objective Admission Weight: 90.7 kg (200 lb) BP 149/97 Pulse 88 Temp 36.9 ?C (98.4 ?F) Resp 16 Ht 182.9 cm (6') Wt 99.1 kg (218 lb 7.6 oz) SpO2 100% BMI 29.63 kg/m? Body surface area is 2.24 meters squared. Min/Max/Average Temperature AND Blood Pressure: Temp (24hrs), Av.6 ?C (97.9 ?F), Min:36.4 ?C (97.5 ?F), Max:36.9 ?C (98.4 ?F) Systolic (24hrs), Av , Min:113 , Max:163 Diastolic (24hrs), Av, Min:64, Max:107 Intake/Output Summary (Last 24 hours) at 07/12/2019 0613 Last data filed at 07/11/2019 2200 Gross per 24 hour Intake 840 ml Output 2160 ml Net -1320 ml TELEMETRY: atrial fibrillation PHYSICAL EXAM: GEN: no acute distress, pleasant, seated in chair this AM HEENT: normocephalic, atraumatic, EOMI NECK: trachea midline, no JVD NEURO: Grossly normal cognition, motor function, and cranial nerves III-XII. AANDOx3 PSYCH: normal mood and affect CV: irregularly irregular on telemetry with PVCs RESP: 100% SpO2 on2L nasal canula, goes down to89% on RA equal chest rise bilaterally ABD: Soft, no rebound, guarding, masses, organomegaly, or peritoneal signs BACK: nontender, normal curvatures EXT: LARA no edema UG: farley with straw colored urine Lines, Drains, and Airways Line Peripheral 08/18/19 1100 Midline Right Antecubital 20 Gauge 1 day Drain Indwelling Urinary Catheter 07/04/19 Assessment Temperature Monitoring 24 Fr 8 days DATA: Diagnostic tests reviewed for today's visit: Recent Labs 07/12/19 0430 07/11/19 0950 07/10/19 1130 RBC 2.64* -- 2.61* WBC 6.86 -- 8.00 HB 7.9* -- 7.7* HCT 24.3* -- 24.5* PLT 239 -- 167 NA 139 139 142 K 3.9 3.7 3.7 CHLOR 106 107 110* CO2 28 26 26 BUN 22* 29* 40* CREAT 1.12 1.14 1.24* GLUC 113* 152* 114* CA 8.3* 8.2* 8.3* ANION 9 10 10 Assessment/Plan 79 yo male with severe symptomatic aortic stenosis, CAD, and paroxysmal atrial fibrillation who presented for elective AVR and myocardial revascularization on 07/04/19. Post op course has been complicated by intraop coagulopathy, altered mental status, hematuria, and anemia. ? 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 Cristhian Trifecta valve and s/p CABGx2 (HARRINGTON-LAD, SVG-ramus) - c/w ASA, statin, BB - Pain control with Tylenol - Bowel regimen - Increase activity - Echo: normal bioprosthetic valve function - temp pacing wires removed 07/11 - Floor yesterday but no beds available ? Anticipated acute hypoxic pulmonary insufficiency s/p CTS - wean O2 as tolerated - Proventil - Encourage IS and CANDDB ? Paroxysmal Atrial Fibrillation - s/p LORENE clip on 07/04/19 - Rates controlled currently, but still in afib - c/w Metoprolol PO - PO Amiodarone - will NOT anticoagulate due to significant hematuria; LORENE excluded Debility - PT/OT> Acute Rehab - DIET HEART HEALTHY - modified barium swallow pending - PT/OT reevaluation ? Acute Encephalopathy - resolved ? HTN - improved - on home amlodipine, added metoprolol HLD - lipitor MAURO - resolved - s.p 20mg lasix 07/10 ? Acute blood loss anemia - stable - on iron, Vit C, folate ? Dysphagia - resolved, Regular consistency with supervision - tolerating DIET HEART HEALTHY ? Hematuria - void trial today per Urology ? DVT ppx - SCDs - No lovenox due to anemia - thrombocytopenia resolved. - consider when farley out, farley remains stable GI PPx - PPI ? Tests/Labs Ordered: 1. None SIGNATURE: Jim Castro DO PATIENT NAME: Elias Shah DATE: July 12, 2019 TIME: 6:13 AM PAGER/CONTACT #: [phone] [facility] ALLIED HEALTHon 07-11-2019 ALLIED HEALTH HNO ID: [id number] Author: Mal (Medical Grade Shoemaker) ASTRID Mendoza Service: Cardiac Rehab Author Type: Registered Resp Therapist Type: Allied Health Filed: 07/11/2019 3:16 PM Note Text: CARDIAC REHABILITATION PATIENT EDUCATION PROGRESS NOTE Name: Elias Shah Date of Service: 07/11/19 Time of Service: 1513 ASSESSMENT: Risk Factors Identified: Family History Gender Hyperlipidemia Hypertension Obesity Sedentary Lifestyle RECOMMENDATIONS: Patient interested in Phase II Outpatient Cardiac Rehab: Yes. Facility Preferred: [facility] DIAGNOSIS: Open Heart Surgery: CABG Open Heart Surgery Teaching Points: -Basic Anatomy and Disease Process -Personal Modifiable Risk Factor Identification -Activity/Physical Exercise Recommendations -Angina/Heart Attack warning signs and symptoms -When patient should call provider -Emergency planning: Symptom recognition, Stop activity, Rest, Nitroglycerine use, Pulse check, Call 911 -Outpatient Cardiac Rehabilitation READINESS TO LEARN: Cognitive Ability: Alert and Oriented Motivation to Learn: Interested Family Support: Unable to assess - Family not present Instruction Provided To: Patient Patient Learns Best By: Individual Instruction, Written Instruction - Hand-outs, Verbal Instruction and Demonstration Factors Affecting Learning: None Physical Limitations Affecting Learning: None LEARNING RESPONSE: Method Of Instruction: Individual instruction Written instruction - handouts Verbal instruction Patient/Family Response: Verbalizes understanding of: Card rehab phase II and incision care Follow-up Plan: No further educational needs identified at this time. Instructional Aids Used: Anatomical Model/Drawing Cardiac Rehabilitation Brochure Signature: Mal Mendoza RRT Pager: [phone] Date: July 11, 2019 Time: 3:14 PM [facility] CASE MANAGEMon 07-11-2019 CASE MANAGEM HNO ID: [id number] Author: Imelda (Rn) AGUSTO Rizvi Service: ? Author Type: Registered Nurse Type: Care Mgt Progress Note Filed: 07/11/2019 2:44 PM Note Text: CARE MANAGEMENT PROGRESS NOTE SERVICE DATE: 07/11/2019 SERVICE TIME: 2:43 PM LOS: 7 days Needs Prior to Discharge: Accepting Facility;Discharge Transportation Pt significantly more alert and oriented today, walked a lap around unit. Recommend PT/OT re-eval for acute rehab once medically stable. (had run of VT after amb). SIGNATURE: Imelda Rizvi RN PATIENT NAME: Elias Shah DATE: July 11, 2019 TIME: 2:43 PM PAGER/CONTACT #: [phone] [facility] NURSING PROGon 07-11-2019 NURSING PROG HNO ID: [id number] Author: Suni GusmanRn) AGUSTO Maguire Service: ? Author Type: Registered Nurse Type: Nursing Progress Note Filed: 07/11/2019 2:30 PM Note Text: PT/OT assisted with using bedside commode and ambulating a full lap. Pt assisted back to bed upon request, awaiting AV wires to be removed by Daniele MCCRYA. Pt did experience a run of VTach once brought back to room, AxO during episode and complained of SOB on room air, maintaining above 96%. Will continue to monitor [facility] NUTRITIONon 07-11-2019 NUTRITION HNO ID: [id number] Author: Mimi Smith Service: Nutrition Therapy Author Type: Registered Dietitian Type: Nutrition Filed: 07/11/2019 12:16 PM Note Text: NUTRITION THERAPY PATIENT EDUCATION SERVICE DATE: 07/11/2019 SERVICE TIME: 11:55am TOPIC: Cardiac Rehab: Mediterranean Diet Diagnosis: ADULT: Coronary Artery Disease READINESS TO LEARN Cognitive Ability: Alert and oriented Motivation to Learn: Interested Family Support: Unable to assess - Family not present Instruction Provided to: Patient Patient Learns Best by: Unable to Assess Factors Affecting Learning: None Physical Limitations Affecting Learning: None LEARNING RESPONSE Patient / Family Response: Verbalizes understanding of Mediterranean Diet Guidelines Method of Instruction: Written instruction - handouts Verbal instruction Supplemental Material Provided to Patient: Mediterranean Diet Guidelines Follow-Up Plan: Patient instructed to call with any further issues Referral (Recommendation): Nutrition - Outpatient MNT Billing: Initial Assess/15 min 2 units SIGNATURE: Mimi Smith RD,LD PATIENT NAME: Elias Shah DATE: July 11, 2019 TIME: 12:14 PM PAGER: [phone] [facility] NUTRITION HNO ID: [id number] Author: Yasmine Sanchez RD Service: Nutrition Therapy Author Type: Registered Dietitian Type: Nutrition Filed: 07/11/2019 1:42 PM Note Text: NUTRITION THERAPY PROGRESS NOTE SERVICE DATE: 07/11/2019 SERVICE TIME: 8:46 AM RECOMMENDED DIAGNOSIS: MODERATE PROTEIN-CALORIE MALNUTRITION per Registered Dietitian on 07/08/19 NUTRITION CARE PLAN Problem, Etiology and Signs/Symptoms: Increased nutrient needs kcal/protein related to increased nutrient needs from surgery as evidenced by CABG 07/04/19 Intervention: Continue on Heart Healthy diet with 2000 mL fluid restriction Coordination of Care: Nursing Monitor and Evaluation: Goal: Meet >75% of estimated needs Monitor fluid/electrolyte balance Monitor labs, I/Os, vital signs, weight Discharge Nutrition Recommendations: Diet: Heart Healthy with 2000 mL fluid restriction Chart reviewed for follow-up Interval History: Remains in ICU, diet advanced on 07/08/[address] for regular textures, tolerating po diet, BM 07/09/19. MBSS completed 07/11/19. ACTIVE PROBLEM LIST Abnormal Electrocardiogram (Ecg) (Ekg) Anemia, Unspecified Aortic Valve Stenosis Atrial Fibrillation With Rapid Ventricular Response (Hcc) Mauro (Acute Kidney Injury) (Hcc) Acute Metabolic Encephalopathy Vitamin D Deficiency Small Bowel Obstruction (Hcc) Paroxysmal Atrial Fibrillation (Hcc) Lbbb (Left Bundle Branch Block) Incarcerated Umbilical Hernia Declining Functional Status Essential Hypertension Hyperlipidemia Impaired Cognition Aortic Stenosis Malnutrition of Moderate Degree (Hcc) S/P Avr (Aortic Valve Replacement) S/P Cabg X 2 Acute Encephalopathy Coronary Artery Disease of [place] Artery of [place] Heart With Stable Angina Pectoris (Hcc) PAST MEDICAL HISTORY Diagnosis Date - Acute kidney injury (HCC) - Acute metabolic encephalopathy - Anemia - Aortic stenosis - Atrial fibrillation (HCC) - Bowel obstruction (HCC) - Coronary artery disease - Hyperlipidemia - Hypertension - Left bundle branch block - Mitral valve annular calcification - Prolonged QT interval - Vitamin D deficiency PAST SURGICAL HISTORY Procedure Laterality Date - REPAIR UMBILICAL HERNIA 12/04/2018 after bowel perforation done at [facility] Dr. Young Nutritional Intake: <75% estimated energy needs over the past 3 day(s) with po improving, tolerated 100% dinner 07/10/19. Orders Placed This Encounter DIET HEART HEALTHY Standing Status: Standing Number of Occurrences: 1 Order Specific Question: Heart Healthy Answer: 2 GM SODIUM (<200 MG CHOL / LOW SAT FAT) Order Specific Question: Fluid Restriction Answer: 2000 ML Order Specific Question: Liquid Consistency Answer: THIN LIQUID (L0) Lines and Drains: Peripheral 07/10/19 1100 Midline Right Antecubital 20 Gauge (Active) Indwelling Urinary Catheter 07/04/19 Assessment Temperature Monitoring 24 Fr (Active) Height: 182.9 cm (6') Admission Weight: 90.7 kg (200 lb) Current Weight: 95.8 kg (211 lb 3.2 oz) Body mass index is 28.64 kg/m?. overweight Recent Labs 07/10/19 1130 GLUC 114* BUN 40* CREAT 1.24* NA 142 K 3.7 CHLOR 110* CO2 26 HB 7.7* HCT 24.5* WBC 8.00 Surgical Incision 07/04/19 Chest - Midsternal (Active) Dressing Status None: Open to Air 07/11/2019 7:00 AM Incision Closures Topical Skin Adhesive 07/11/2019 7:00 AM Drainage Description None 07/11/2019 7:00 AM Drainage Amount None 07/11/2019 7:00 AM Edges Intact 07/11/2019 7:00 AM Hematoma No 07/11/2019 7:00 AM Number of days: 7 Surgical Incision 07/04/19 Leg - Left (Active) Dressing Status None: Open to Air 07/11/2019 7:00 AM Frequency of Dressing Change As Needed 07/10/2019 8:00 PM Dressing /Treatment Type Elastic Bandage/Wrap 07/11/2019 7:00 AM Incision Closures Topical Skin Adhesive 07/11/2019 7:00 AM Drainage Description None 07/11/2019 7:00 AM Drainage Amount None 07/11/2019 7:00 AM Edges Intact 07/11/2019 7:00 AM Hematoma No 07/11/2019 7:00 AM Number of days: 7 Vitamin and Mineral Labs in the past year: Recent Labs 07/07/19231904/22/19 1359 B12 227 -- TIBC -- 373 FE -- 38* EDDI -- 42.3 MNT Billing Type: Re-assess/15 min 2 units SIGNATURE: Yasmine Sanchez RD, LD PATIENT NAME: Elias Shah DATE: July 11, 2019 TIME: 8:46 AM PAGER: [phone] [facility] PROGRESSon 07-11-2019 PROGRESS HNO ID: [id number] Author: Marlon Millan (Pa) Service: Cardiovascular Surgery Author Type: Physician [employer] Pressing Machine Operator Type: Progress Notes Filed: 07/11/2019 2:02 PM Note Text: CARDIOTHORACIC SURGERY POSTOP PROGRESS NOTE SERVICE DATE: 07/11/2019 SERVICE TIME: 1:21 PM Subjective S/P SURGERY: Procedure(s) (LRB): AVR W/ CARDIOPULMONARY BYPASS W/ PROSTHETIC OTHER THAN HOMOGRAFT/ STENTLESS TISSUE VALVE (N/A) BYPASS GRAFT ARTERY CORONARY ON-PUMP SINGLE CORONARY ARTERIAL GRAFT (N/A) BYPASS GRAFT ARTERY CORONARY ON-PUMP USING VENOUS GRAFT(S) AND ARTERIAL GRAFT(S) SINGLE VEIN GRAFT (N/A) ENDOSCOPIC HARVEST VEIN FOR CORONARY ARTERY BYPASS PROCEDURE (N/A) DATE OF SURGERY: 07/04/2019 POSTOP DAY #7 LOS: 7 INTERVAL EVENTS / PERTINENT ROS: Patient seen and examined. Mental status has fully recovered. Ambulating well. Pain controlled. Objective Admission Weight: 90.7 kg (200 lb) BP 148/82 Pulse 96 Temp 36.4 ?C (97.5 ?F) (Temporal) Resp 25 Ht 182.9 cm (6') Wt 97.9 kg (215 lb 13.3 oz) SpO2 98% BMI 29.27 kg/m? Body surface area is 2.23 meters squared. Min/Max/Average Temperature AND Blood Pressure: Temp (24hrs), Av.4 ?C (97.6 ?F), Min:36.4 ?C (97.5 ?F), Max:36.5 ?C (97.7 ?F) Systolic (24hrs), Av , Min:103 , Max:169 Diastolic (24hrs), Av, Min:73, Max:141 Intake/Output Summary (Last 24 hours) at 07/11/2019 1321 Last data filed at 07/11/2019 0900 Gross per 24 hour Intake 240 ml Output 1780 ml Net -1540 ml TELEMETRY: atrial fibrillation PHYSICAL EXAM: General Appearance: no distress Skin: Midsternal incision dry AND intact. and SVG incisions dry AND intact. Neck: no JVD Lungs: decreased breath sounds and crackles Heart: pacing wires present and rate regular, rhythm irregular Peripheral Vascular/Arteries: radial 2+ Abdomen: soft, non-tender and bowel sounds present Genitourinary: Farley intact, urine color is tea colored Neurologic/Psychiatri c: alert and follows all commands. NFD. Extremities: 2+ LE Lines, Drains, and Airways Line Peripheral 07/10/ 1100 Midline Right Antecubital 20 Gauge 1 day Drain Indwelling Urinary Catheter 07/04/19 Assessment Temperature Monitoring 24 Fr 7 days DATA: Recent Labs 07/11/19 0950 07/10/19 1130 07/09/19 0538 RBC -- 2.61* 2.69* WBC -- 8.00 8.95 HB -- 7.7* 8.1* HCT -- 24.5* 25.0* PLT -- 167 131* NA 139 142 142 K 3.7 3.7 3.4* CHLOR 107 110* 111* CO2 26 26 26 BUN 29* 40* 43* CREAT 1.14 1.24* 1.31* GLUC 152* 114* 133* CA 8.2* 8.3* 8.5 ANION 10 10 8 Assessment/Plan CAD -s/p CABG x?2 ([place]?and reversed SVG?to the ?ramus intermedius branch) -POD#7 -Medical management with ASA?162, atorvastatin?40, Metoprolol 50 BID -Post operative vest support? -Remove temp pacing wires today -IS/ ambulation/ PT -Cardiac rehab? ? Severe -s/p Aortic valve replacement with?[address] Cristhian Trifecta -POD #7 -Medical management with ASA 162 -Repeat echo -1+ aortic valve regurgitation -Peak gradient is 15 mmHg -peak velocity = 195.1 cm/s -Mean gradient is 8 mmHg -LVOT mean velocity is 60.8 cm/s -Aortic VTI is 32.5 cm -Mean velocity in the aortic valve is 135.5 cm/s -Dimensionless valve index is 0.44 ? Paroxysmal atrial fibrillation/ Afib RVR -s/p?exclusion of left atrial appendage with a 35 mm AtriCure clip -POD#7 -Currently on rhythm/ rate control with amio 200 TID AND metoprolol 50 BID -CHADS2: 2 -CHADS2 VASC: 4 -No OAC 2/2 hematuria ? Acute encephalopathy -Likely from narcotics -Resolved NSVT -Amio/ beta leyda as tolerated ? MAURO -Likely from ATN -Normalizing -Cr now 1.14 from 1.24 (peaked at 1.71 07/07) ? Mild dysphagia -s/p barium test today -ST recs: -Feed / Eat at a slow rate -Sit upright 90 degrees for all PO -Small Bite/Sip ? Coagulopathy -s/p 1 unit cryoprecipitate intraoperatively -s/p 4 units PRBC ? Thrombocytopenia -s/p 10 pack platelets -Monitor -Defer Lovenox?2/2 hematuria ? ? Hematuria -Spoke with Urology resident today, plan is to assess him tomorrow and possibly remove Farley ? Acute blood loss anemia -2/2 OR and hematuria -Fe, Folate, Vit C -Monitor with CBC in AM? ? BPH -Flomax ? GI PPX -Protonix? ? VTE PPX -SCD -Defer Lovenox 2/2 hematuria ? Diet -Heart healthy? Transfer to 4200 today Tests/Labs Ordered: 1. BMP 2. CBC SIGNATURE: Marlon Millan PA-C PATIENT NAME: Elias Shah DATE: July 11, 2019 TIME: 1:21 PM PAGER/CONTACT #: [phone] [facility] PROGRESS HNO ID: [id number] Author: Jim (Luis Enrique Castro DO Service: Cardiac Surgery Author Type: Resident Type: Progress Notes Filed: 07/11/2019 7:03 AM Note Text: Attestation signed by Wayne Rivers at 07/11/2019 11:13 AM Attending Note I evaluated the patient and personally participated in the simmons components. I agree with the resident's findings and plan as documented and have discussed the case and management of the patient's care with the resident. Doing well. Will increase BB. Diurese. DC pacing wires. Transfer to 4200. to consider farley removal. Placement pending. Signature: Wayne Rivers MD Date: 07/11/2019 Time: 11:12 AM CARDIOTHORACIC SURGERY POSTOP PROGRESS NOTE SERVICE DATE: 07/11/2019 Subjective S/P SURGERY: Procedure(s) (LRB): AVR W/ CARDIOPULMONARY BYPASS W/ PROSTHETIC OTHER THAN HOMOGRAFT/ STENTLESS TISSUE VALVE (N/A) BYPASS GRAFT ARTERY CORONARY ON-PUMP SINGLE CORONARY ARTERIAL GRAFT (N/A) BYPASS GRAFT ARTERY CORONARY ON-PUMP USING VENOUS GRAFT(S) AND ARTERIAL GRAFT(S) SINGLE VEIN GRAFT (N/A) ENDOSCOPIC HARVEST VEIN FOR CORONARY ARTERY BYPASS PROCEDURE (N/A) DATE OF SURGERY: 07/04/2019 POSTOP DAY #7 LOS: 7 INTERVAL EVENTS / PERTINENT ROS: NAEON. Just got back from a walk. Admits to a dry cough. Objective Admission Weight: 90.7 kg (200 lb) BP 154/100 Pulse 94 Temp 36.5 ?C (97.7 ?F) Resp 19 Ht 182.9 cm (6') Wt 95.8 kg (211 lb 3.2 oz) SpO2 99% BMI 28.64 kg/m? Body surface area is 2.21 meters squared. Min/Max/Average Temperature AND Blood Pressure: Temp (24hrs), Av.2 ?C (97.2 ?F), Min:36.1 ?C (97 ?F), Max:36.5 ?C (97.7 ?F) Systolic (24hrs), Av , Min:113 , Max:163 Diastolic (24hrs), Av, Min:64, Max:107 Intake/Output Summary (Last 24 hours) at 07/11/2019 0618 Last data filed at 07/10/2019 1800 Gross per 24 hour Intake 600 ml Output 1625 ml Net -1025 ml TELEMETRY: atrial fibrillation PHYSICAL EXAM: GEN: no acute distress, pleasant, seated in chair this AM HEENT: normocephalic, atraumatic, EOMI NECK: trachea midline, no JVD NEURO: Grossly normal cognition, motor function, and cranial nerves III-XII PSYCH: normal mood and affect CV: irregularly irregular on telemetry with PVCs RESP: 100% SpO2 on nasal canula, equal chest rise bilaterally ABD: Soft, no rebound, guarding, masses, organomegaly, or peritoneal signs BACK: nontender, normal curvatures EXT: LARA no edema UG: farley with straw colored urine Lines, Drains, and Airways Line Introducer 07/04/19 Right Neck 7 days Peripheral 07/10/19 1100 Midline Right Antecubital 20 Gauge less than 1 day Drain Indwelling Urinary Catheter 07/04/19 Assessment Temperature Monitoring 24 Fr 7 days DATA: Diagnostic tests reviewed for today's visit: Recent Labs 07/10/19 1130 07/09/19 0538 RBC 2.61* 2.69* WBC 8.00 8.95 HB 7.7* 8.1* HCT 24.5* 25.0* PLT 167 131* NA 142 142 K 3.7 3.4* CHLOR 110* 111* CO2 26 26 BUN 40* 43* CREAT 1.24* 1.31* GLUC 114* 133* CA 8.3* 8.5 ANION 10 8 Assessment/Plan 79 yo male with severe symptomatic aortic stenosis, CAD, and paroxysmal atrial fibrillation who presented for elective AVR and myocardial revascularization on 07/04/19. Post op course has been complicated by intraop coagulopathy, altered mental status, hematuria, and anemia. ? 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 Cristhian Trifecta valve and s/p CABGx2 ([place]-LAD, SVG-ramus) - c/w ASA, statin, BB - Pain control with Tylenol - Bowel regimen - Increase activity - Echo: normal bioprosthetic valve function - likely transfer to 4200 today - will need temp pacing wires pulled ? Anticipated acute hypoxic pulmonary insufficiency s/p CTS - resolved - Encourage IS and CANDDB ? Paroxysmal Atrial Fibrillation - s/p LORENE clip on 07/04/19 - VR improved - Rates controlled currently, but still in afib - c/w Metoprolol PO - PO Amiodarone - will NOT anticoagulate due to significant hematuria; has excluded LORENE Debility - will need post acute care before home - DIET HEART HEALTHY - modified barium swallow pending - PT/OT reevaluation ? Acute Encephalopathy - resolved ? HTN - improved - on home amlodipine, added metoprolol HLD - lipitor MAURO - resoved - s.p 20mg lasix 07/10 ? Acute blood loss anemia - stable - on iron, Vit C, folate - no labs this AM ? Dysphagia - Speech therapy following - Recommended modified barium swallow ? Hematuria - c/w farley and intermittent bladder irrigation - Urology managing, void trial when transfer to floor ? DVT ppx - SCDs - No lovenox due to anemia and thrombocytopenia GI PPx - PPI ? Tests/Labs Ordered: 1. None SIGNATURE: Jim Castro DO PATIENT NAME: Elias Shah DATE: July 11, 2019 TIME: 6:17 AM PAGER/CONTACT #: [phone] [facility] THERAPY NTon 07-11-2019 THERAPY NT HNO ID: [id number] Author: Chloe GusmanOtr/Carleen Asher Service: Occupational Therapy Author Type: Occupational Therapist Type: Therapy (PT/OT/Speech/Resp) Filed: 07/11/2019 3:37 PM Note Text: Occupational Therapy Treatment SERVICE DATE: 07/11/2019 SERVICE TIME: 1355 to 1410 ROOM: [place] [id number] Recommended Discharge Disposition: Acute Rehab Recommended Discharge Disposition Comments: Patient has had a functional decline from prior level of independence and currently requires hands on assistance for all self care and functional mobility. Needs further reinforcement of sternal precautions/cardiac precautions for follow through. Has made good gains acutely, with return to baseline anticipated with continued intensive acute rehab when discharged. Patient would benefit from OT/PT and speech therapy services as has cognitive deficits as well. Patient is motivated, participates well in therapy. Justification For Post Acute Needs: Anticipate patient will tolerate 3 hours of daily therapy at the time of admission to post-acute setting;Anticipated community discharge;Good family support;Good premorbid functional status;Living the community premorbidly;Good sitting tolerance;Medically complex;Motivated;Abilio ling to participate;Anticipat e that patient will require daily (5x/wk) skilled therapy in a post-acute facility setting at the time of acute hospital discharge OT Recommendations to Nursing: ADL?s in chair;Bedside Commode for Toileting;OOB for meals;Transfer to Chair;With assist of 1 person(progress to bathroom level when off ICU) Equipment: Wheeled Walker;Commode-Bedsid e OT 6 Clicks Score: 15 Precautions/Activity Restrictions: Cardiac;Fall Risk;Sternal;Brace Precaution/Activity Restriction Comments: farley, telemetry; sternal vest ASSESSMENT: Patient presents with good gains towards established goals, progressing adequately that may benefit from acute rehab vs SNF level of care in order to progress fully to prior level of independence. Gains noted in both UB and lower body self care, toileting, toilet transfers and functional mobility for ADL with wheeled walker. Also note improvement in orientation and ability to follow commands. Goals updated as noted below due to gains. Requires continued skilled OT acutely and acute rehab post acute in order to maximize strength, knowledge of and adherence to sternal precautions, activity tolerance and cognitive/safety awareness in order to return to baseline level of independence and safely return home with family support. Patient Disposition at Start of Session: OOB in Chair;Call [facility] in [place](RN present) Patient Disposition at End of Session: (up with PT and RN) Tolerated Full Session Occupational Therapy Problem List: Education Deficit;Cognitive Deficit;Safety Deficits;Impaired Self Care;Decreased Activity Tolerance;Decreased Strength;Functional Mobility Impairment;Balance Impaired Patient /Caregiver Goals: Go Home Goals for Plan of Care: Grooming with: Stand By Assistance Upper Body Bathing with: Stand By Assistance Upper Body Dressing with: Minimal Assistance Lower Body Bathing with: Minimal Assistance Lower Body Dressing with: Minimal Assistance Chair Transfer with: Stand By Assistance Toilet Transfer with: Stand By Assistance Tolerate (minutes of functional activity): 15 Functional Activity with: Minimal Assistance Additional Goal 1: Pt. will demonstrate good awareness of sternal precautions Additional Goal 2: Pt. will score 26/30 on the MOCA version 1 Demonstrate Competence With Education with: Stand By Assistance(safety during self care within precautions) Progress Toward Goals: Progressing as expected Rehab Potential: Good PLAN: Treatment Frequency (times per week): 5(2-5 times per week) Current admission Treatment Interventions: Education;Self Care / Home Management;Energy Conservation Training;Strengthenin g;Functional Mobility Training;Balance Training;Cognitive Training Plan of Care developed with: Patient TREATMENT INTERVENTIONS: Therapy Diagnosis: Reduced mobility-other;Decrea sed activities of daily living (ADL);Muscle Weakness (generalized);Unstead iness on feet;General symptoms and signs-other;Signs and Symptoms Involving Cognitive Functions and Awareness Interventions Provided: Self Fdc Management (25658) Self Fdc Management (67694) Treatment Minutes: 15 1 unit Skilled Intervention(s): Instructed in post-op instructions during ADLs, with focus on sternal precaution education and how to adhere to precautions with self care tasks. Instructed in energy conservation and activity pacing to progress participation and independence in ADL. Toilet transfer/toileting training provided with wheeled walker and bedside commode. Cues for safety and adherence to sternal precautions with sit<>stand, as well as for using walker for balance/energy conservation with mobility vs full weight bearing through UEs with mobility tasks. Education for technique for clothing management/hygiene initiated with toileting. Vitals monitored and RN present during session. Review of plan of care and discharge recommendation provided. Patient transferred to care of PT for mobility training at end of session. Total Timed Code Treatment Minutes: 15 Total Treatment Time (minutes): 15 SUBJECTIVE: Current Hospital Course: Chart reviewed and no significant medical updates relevant to therapy were noted. Making gains and plan for transfer to medical floor for ongoing care. Reason for Occupational Therapy Consult: Saety Assessment Relevant Past Medical History: aortic stenosis, anemia, afib, impaired cognition Patient Report: Patient pleasant, joking with therapy and RN. Improved orientation/cognition and following commands noted. Well, you're in a hospital. [facility], if you didn't remember when asked for orientation to place. Reported pain in right shoulder at 7/10. My left one hurt too right after surgery, but it's better. I guess it's how they positioned me. Home Environment Patient Lives With: Family(sister) Assistance Available: multimedia production assistant Entry To Home: Stairs Prior Functional Level: Within Functional Limits Prior Functional Level Comments: patient questionable historian at time of eval; states was independent prior to admission without device, unable to provide detailed home setting OBJECTIVE: Cognition/Communicati on Deficits Orientation Deficits: Not oriented to Place;Not oriented to Time;Not oriented to Situation Responsiveness: Alert Follows Commands: 2-step Commands;Cueing Needed Cueing to Follow Commands: Minimum Memory Deficits: Short Term Executive Function Deficits: Sequencing;Judgement; Insight to Deficits;Problem Solving;Safety Awareness Sequencing Deficit: Minimal impairment Judgement Deficit: Minimal impairment Insight to Deficits: Minimal impairment Problem Solving Deficit: Moderate impairment Safety Awareness Deficit: Moderate impairment CURRENT FUNCTIONAL STATUS: Current Activities of Daily Living Assist Level Feeding Set Up Grooming Minimal Assistance Bathing Upper Body Minimal Assistance Bathing Lower Body Maximal Assistance(mod/max assist) Dressing Upper Body Moderate Assistance(with moderate cues) Dressing Lower Body Maximal Assistance(mod/max with cues) Toileting Moderate Assistance(hygiene for BM on BSC/standing; still has farley) Functional Mobility Assist Level Rolling Supine to Sit Sit to Supine Scooting Moderate Assistance Sit to Stand Minimal Assistance Stand to Sit Minimal Assistance Bed to Chair Minimal Assistance Stand Pivot Wheeled Walker Toilet/Commode Minimal Assistance(to BSC with wheeled walker) Functional Mobility Minimal Assistance Wheeled Walker Functional Mobility Comments: In room, to toilet Range of Motion: ROM Limitation Comments ROM Limitation Comments: shoulders 0-90 WFL; distal WFL Strength: Strength Limitation Comments Strength Limitation Comments: at least 3-/5 shoulders; distal 4/5 Balance: Dynamic Sitting;Static Standing;Dynamic Standing Dynamic Sitting Balance: Contact Guard Assistance Static Standing Balance: Minimal Assistance Dynamic Standing Balance: Minimal Assistance Activity Tolerance: Sitting Activity;Standing Activity Sitting Activity: edge of chair for simulated UB ADL Sitting Activity Tolerance (in minutes): 8 Standing Activity: Toileting tasks/toilet transfer, functional mobility for ADL Standing Activity Tolerance (in minutes): 6 Please see discipline specific clinical documentation flowsheet for complete details for this therapy evaluation/treatment. SIGNATURE: ERIC Bales/L PATIENT NAME: Elias Shah DATE: July 11, 2019 TIME: 3:21 PM Normal [facility] THERAPY NT HNO ID: [id number] Author: Maggie Rizvi Service: Physical Therapy Author Type: Physical Therapist Type: Therapy (PT/OT/Speech/Resp) Filed: 07/11/2019 3:21 PM Note Text: Physical Therapy Treatment SERVICE DATE: 07/11/2019 SERVICE TIME: 1409 to 1420 ROOM: [id number] Recommended Discharge Disposition: Acute Rehab Recommended Discharge Disposition Comments: Patient has made progress here and can now tolerate 3 hours of therapy per day Justification For Post Acute Needs: Anticipate patient will tolerate 3 hours of daily therapy at the time of admission to post-acute setting;Cognition intact;Good sitting tolerance;Medically complex;Motivated PT Recommendations to Nursing: Ambulate with device;To bathroom;In halls;Transfer to/from chair;OOB for Meals;With assist of 2 people Device: Wheeled Walker PT 6 Clicks Score: 15 Precautions/Activity Restrictions: Cardiac;Fall Risk;Sternal;Brace Precaution/Activity Restriction Comments: farley, telemetry; sternal vest ASSESSMENT : Mr. Shah was eager to walk with physical therapy and has been walking the the senior staff accountant several times last last few days. This patient has shown significant improvement with gait and endurance since evaluation date. The patient was able to pace himself to continue with activity. He was fatigued after the session. The patient required assist for safety and with maintaining sternal precautions when getting back into the bed. Patient Disposition at Start of Session: OOB in Chair Patient Disposition at End of Session: Supine in Bed Tolerated Full Session Physical Therapy Problem List: Education Deficit;Pain;Safety Deficits;Decreased Activity Tolerance;Decreased Range Of Motion;Decreased Strength;Functional Mobility Impairment;Balance Impaired Patient /Caregiver Goals: Go Home Goals for Plan of Care: Able to perform HEP with: Independent Transfer supine to/from sit with: Minimal Assistance Transfer sit to/from stand with: Contact Guard Assistance Ambulate with: Minimal Assistance Distance: 50ft intervals Device: Wheeled Walker Rehab Potential: Good PLAN: Treatment Frequency (times per week): 5(1-5) Current admission Treatment Interventions: Education;Strengtheni ng;Functional Mobility Training;Balance Training;Pain Management Plan of Care developed with: Patient TREATMENT INTERVENTIONS: Interventions Provided: Therapeutic Activity (44548);Gait Training (50289) Therapeutic Activity (01332) Treatment Minutes: 1 0 units Skilled Intervention(s): Education with hugging the pillow to his chest and laying on his side to log roll into the bed. Required assist to lif this legs in to the bed. The patient was instructed to keep holding the pillow and roll to his back. Gait Training (71970) Treatment Minutes: 10 1 unit Skilled Intervention(s): Instruction in use of equipment, cues for sequence and pattern with the walker, instructed to stay within the walker frame and to keep his hands on the walker handles. The patient was verbally and tacitly assisted to achieve a better upright posture for walking and to take deeper breaths. I encouraged the patient to take standing rest breaks to catch his breath as needed. Total Timed Code Treatment Minutes: 11 Total Treatment Time (minutes): 11 SUBJECTIVE: Current Hospital Course: Chart reviewed and no significant medical updates relevant to therapy were noted Reason for Physical Therapy Consult : eval and treat Relevant Past Medical History: aortic stenosis, anemia, afib, impaired cognition Patient Report: Patient was tired but had no new complaints. Home Environment Patient Lives With: Family(sister) Assistance Available: multimedia production assistant Entry To Home: Stairs Prior Functional Level: Within Functional Limits Prior Functional Level Comments: patient questionable historian at time of eval; states was independent prior to admission without device, unable to provide detailed home setting OBJECTIVE: CURRENT FUNCTIONAL STATUS: Current Functional Mobility Assist Level Additional Information Rolling Supine to Sit Sit to Supine Moderate Assistance Scooting Minimal Assistance Sit to Stand Moderate Assistance Stand to Sit Minimal Assistance Bed to Chair Toilet/Commode Gait Minimal Assistance Gait Device: Wheeled Walker Gait Distance (feet): 35 ft intervals with standing rest breaks Stairs Curb Step Car Transfer General Gait Deviations: Suzan decreased;Lateral sway increased;Flexed trunk posture Balance: Static Sitting;Dynamic Sitting;Static Standing;Dynamic Standing Static Sitting Balance: Supervision Dynamic Sitting Balance: Contact Guard Assistance Static Standing Balance: Contact Guard Assistance Dynamic Standing Balance: Minimal Assistance Activity Tolerance: Standing Activity Standing Activity: limited by fatigue, endurance Standing Activity Tolerance (in minutes): 10 JH-HLM: 7: Walk 25 feet or more Please see discipline specific clinical documentation flowsheet for complete details for this therapy evaluation/treatment. SIGNATURE: Maggie Rizvi PT PATIENT NAME: Elias Shah DATE: July 11, 2019 TIME: 3:15 PM Normal [facility] THERAPY NT HNO ID: [id number] Author: Shashi (Ccc-Pipe Or Steam Fitter Furnace Installer) YUKI Butt/GAS BOOSTER ENGINEER Service: Speech/Swallow Author Type: Speech Language Pathologist Type: Therapy (PT/OT/Speech/Resp) Filed: 07/11/2019 12:22 PM Note Text: Speech Therapy MBSS Evaluation SERVICE DATE: 07/11/2019 SERVICE TIME: 1045 to 1100 ROOM: [id number] Nursing Recommendations: See swallow guide posted in patients room Reinforce use of swallowing strategies Diet Recommendations: Regular Consistency Thin Liquids IDDSI Level 0 Swallowing Precautions Recommendations: Feed / Eat at a slow rate Sit upright 90 degrees for all PO Small Bite/Sip Supervision/Assistanc e for meals Results and Recommendations Discussed With: Patient;Nurse Recommended Discharge Disposition: Subacute/SNF Justification For Post Acute Needs: May not tolerate higher intensity programing;Need for assistance may exceed support available;Willing to participate;Medically complex;Good sitting tolerance IMPRESSION: Patient demonstrates mild dysphagia which is negatively impacting his/her ability to effectively maintain adequate nutrition and hydration and/or airway safety. Rehabilitation Precautions: Dysphagia;Modified Diet;Cognitive Linguistics Deficits Precaution/Activity Restriction Comments: chest tube, continuous bladder irrigation ASSESSMENT: Prior to the start of the procedure, a time out was taken to verbally confirm the identification of the patient utilizing but not limited to name and date of and to verify a Modified Barium Swallow is being conducted according to standard operating procedure. Instrumental Swallow Assessment Type: Modified Barium Swallow Study Modified Barium Swallow Views: Lateral position MBS Consistencies Tested: Thin Barium Liquids;Mildly Thick Barium Liquids (Rocky Thick);Puree With Barium Paste;Solid With Barium Paste Oral Phase: Lip Closure: No labial escape/anterior loss of bolus Tongue Control During Bolus Hold: Escape to lateral buccal cavity and/or floor of mouth Bolus Preparation/Masticati on: Timely and efficient mastication skills Bolus Transport/Lingual Motion: Brisk tongue motion for A-P movement of the bolus Oral Residue: Trace residue lining oral structures Initiation Of Pharyngeal Swallow: Bolus head at posterior angle of ramus Pharyngeal Phase: Soft Palate Elevation: No bolus between soft palate/pharyngeal wall Laryngeal Elevation: Complete superior movement of thyroid cartilage with contact of arytenoids to epiglottic petiole Anterior Hyoid Excursion: No anterior movement Epiglottic Movement: Complete inversion Laryngeal Vestibular Closure/Height of the Swallow: Complete - no air/contrast in laryngeal vestibule Pharyngeal Stripping Wave: Complete Pharyngoesophageal Segment Opening: Complete distension and complete duration/no obstruction of flow of bolus Tongue Base Retraction: Trace column of contrast or air between tongue base and pharyngeal wall Pharyngeal Residue: Trace residue within or on the pharyngeal structures Esophageal Clearance In An Upright Position: Complete clearance Penetration/Aspiratio n Scale: 1-Material does not enter airway - Patient alert and able to participate in study - Able to self feed but will need tray set up - No penetration nor aspiration - Recommend continue current diet - ST to follow for dysphagia management Tolerated Full Session Goals for Plan of Care: Swallow Goals:? Patient will participate in reassessment at the bedside to determine po readiness?and/or need for instrumentation?as able and appropriate See above 07/08/19 Patient will tolerate Regular Consistency diet consistency while utilizing compensatory/swallowi ng strategies given minimal cues in 90% of trials so that the patient will minimize the signs/symptoms of dysphagia. Patient will tolerate Thin Liquids IDDSI Level 0 consistency while utilizing compensatory/swallowi ng strategies given minimal cues in 90% of trials so that the patient will minimize the signs/symptoms of dysphagia. Patient, Caregiver, Family will demonstrate adequate return of knowledge of all compensatory strategies/instructio n to effectively assist the patient in immediate safety with oral intake and swallowing. Patient will participate in a Modified Barium Swallow Study (MBS) to thoroughly evaluate the oral and pharyngeal phase of the swallow, which cannot be substantiated through a clinical swallowing evaluation only. Through further diagnostic testing a definitive diagnosis/identificat ion of the patient's current swallowing function and recommended treatment plan can be established. - goal met 07/11/2019 Patient /Caregiver Goals: Eat/Drink Without Restrictions Progress Toward Goals: Progressing as expected Speech Rehab Potential: Fair PLAN: Treatment Frequency (times per week): 2 Current admission Treatment Interventions: Dysphagia Management Plan of Care Developed with: Patient TREATMENT INTERVENTIONS: Therapy Diagnosis: Dysphagia, oropharyngeal phase Interventions Provided: Modified Barium Swallow Study (16707) $ Modified Barium Swallow Study (13446) Billed Units: 1 unit Total Treatment Time (minutes): 15 SUBJECTIVE: Current Hospital Course: Chart reviewed and no significant medical updates relevant to therapy were noted Reason for Speech Therapy Consult: Concern for dysphagia Relevant Past Medical History: Post polio syndrome, MAURO, afib, CAD, HTN, hyperlipidemia Patient Report: My swallowing is better than last week. Home Environment Prior Functional Level: Unable to Assess Assistance Available: Unable to determine at this time Prior Swallowing Function/Diet Textures: Unable to determine at this time Please see discipline specific clinical documentation flowsheet for complete details for this therapy evaluation/treatment. SIGNATURE: Shashi Butt CCC-GAS BOOSTER ENGINEER PATIENT NAME: Elias Shah DATE: July 11, 2019 TIME: 12:20 PM Normal [facility] PROGRESSon 07-10-2019 PROGRESS HNO ID: [id number] Author: Wayne Rivers Service: Cardiac Surgery Author Type: Physician Type: Progress Notes Filed: 07/10/2019 10:01 AM Note Text: CARDIOTHORACIC SURGERY POSTOP PROGRESS NOTE SERVICE DATE: 07/10/2019 SERVICE TIME: 9:56 AM Subjective S/P SURGERY: Procedure(s) (LRB): AVR W/ CARDIOPULMONARY BYPASS W/ PROSTHETIC OTHER THAN HOMOGRAFT/ STENTLESS TISSUE VALVE (N/A) BYPASS GRAFT ARTERY CORONARY ON-PUMP SINGLE CORONARY ARTERIAL GRAFT (N/A) BYPASS GRAFT ARTERY CORONARY ON-PUMP USING VENOUS GRAFT(S) AND ARTERIAL GRAFT(S) SINGLE VEIN GRAFT (N/A) ENDOSCOPIC HARVEST VEIN FOR CORONARY ARTERY BYPASS PROCEDURE (N/A) DATE OF SURGERY: 07/04/2019 POSTOP DAY #6 LOS: 6 INTERVAL EVENTS / PERTINENT ROS: Doing well. C/O right shoulder pain. Pain improved with tylenol. Has walked. AF persists, but VR is better. On BB and po Amio. Objective Admission Weight: 90.7 kg (200 lb) BP 115/71 Pulse 104 Temp 36.1 ?C (97 ?F) Resp 20 Ht 182.9 cm (6') Wt 95.8 kg (211 lb 3.2 oz) SpO2 90% BMI 28.64 kg/m? Body surface area is 2.21 meters squared. Min/Max/Average Temperature AND Blood Pressure: Temp (24hrs), Av.4 ?C (97.6 ?F), Min:36.1 ?C (97 ?F), Max:36.6 ?C (97.9 ?F) Systolic (24hrs), Av , Min:113 , Max:163 Diastolic (24hrs), Av, Min:64, Max:107 Intake/Output Summary (Last 24 hours) at 07/10/2019 0955 Last data filed at 07/10/2019 0646 Gross per 24 hour Intake 1130 ml Output 1210 ml Net -80 ml TELEMETRY: atrial fibrillation PHYSICAL EXAM: On examination, the patient is awake, alert, and is breathing comfortably. Vital signs are: BP 137/77 Pulse 65 Temp 36.7 ?C (98.1 ?F) Resp 20 Ht 180.3 cm (5' 11) Wt 86.4 kg (190 lb 7.6 oz) SpO2 99% BMI 26.57 kg/m2. There is no JVD. Breath sounds are clear bilaterally. The sternal wound is intact and the sternum is stable. The cardiac rhythm is regular. There are no rubs, gallops, or murmurs. The carotid, subclavian, and radial pulses are 2+ and equal bilaterally. The abdomen is soft and non-tender. There are no abdominal masses. There is no hepatojugular reflux. The saphenous vein harvest sites are intact. There is no pretibial edema. There is no clubbing or cyanosis. The neuro exam is grossly non focal. Farley in place with very light red urine, no clots. Lines, Drains, and Airways Line Introducer 07/04/19 Right Neck 6 days Peripheral 07/04/19 Assessment Short Right Hand 18 Gauge 6 days Drain Indwelling Urinary Catheter 07/04/19 Assessment Temperature Monitoring 24 Fr 6 days DATA: Diagnostic tests reviewed for today's visit: Recent Labs 07/09/19 0538 07/08/19 0505 07/07/19 1700 07/07/19 1105 RBC 2.69* 2.59* 2.13* -- WBC 8.95 9.51* 12.55* -- HB 8.1* 7.8* 6.5* -- HCT 25.0* 24.4* 20.0* -- PLT 131* 104* 94* -- INR -- -- 1.13 -- APTT -- -- 31.0 -- NA 142 142 -- -- K 3.4* 3.7 -- -- CHLOR 111* 112* -- -- CO2 26 26 -- -- BUN 43* 43* -- -- CREAT 1.31* 1.58* -- -- GLUC 133* 113* -- -- CA 8.5 8.3* -- -- TPROT -- -- -- 5.8* TBILI -- -- -- 0.3 ALKPHOS -- -- -- 38* ALT -- -- -- 11* AST -- -- -- 77* ANION 8 8 -- -- Assessment/Plan 79 yo male with severe symptomatic aortic stenosis, CAD, and paroxysmal atrial fibrillation who presented for elective AVR and myocardial revascularization on 07/04/19. Post op course has been complicated by intraop coagulopathy, altered mental status, hematuria, and anemia. ? 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 Cristhian Trifecta valve and s/p CABGx2 (HARRINGTON-LAD, SVG-ramus) -POD#6 -c/w ASA, statin, BB -Pain control with Tylenol -Bowel regimen -Increase activity -Echo: normal bioprosthetic valve function -likely transfer to 4200 tomorrow -will need temp pacing wires pulled ? Anticipated acute hypoxic pulmonary insufficiency s/p CTS -resolved -Encourage IS and CANDDB ? Paroxysmal Atrial Fibrillation -s/p LORENE clip on 07/04/19 -VR improved -Rates controlled currently, but still in afib -c/w Metoprolol PO -PO Amiodarone -will NOT anticoagulate due to significant hematuria; has excluded LORENE Debility -will need post acute care before home ? Acute Encephalopathy -resolved ? HTN -improved MAURO -resoved ? Acute blood loss anemia stable -on iron, Vit C, folate ? Dysphagia -Speech therapy following -Recommended modified barium swallow ? Hematuria -c/w farley and intermittent bladder irrigation -Urology managing ? DVT ppx -SCDs -No lovenox due to anemia and thrombocytopenia ? Tests/Labs Ordered: 1. None SIGNATURE: Wayne Rivers MD PATIENT NAME: Elias Shah DATE: July 10, 2019 TIME: 9:55 AM PAGER/CONTACT #: [phone] Normal [facility] PROGRESS HNO ID: [id number] Author: Christopher Cook Service: Critical Care Author Type: Physician Type: Progress Notes Filed: 07/10/2019 9:25 AM Note Text: Notes and meds reviewed. No major issues overnight. Full ROS with pt and RN. Feels better. Per RN, pt with audible wheeze at times. No other complaints. ? On exam: 141/ 107, 102, 24, 92% on NC at 2 L Up in chair, NAD, looks chronically ill Chest wall binder in place A, O times 2, no FND Some hoarseness of voice - better Irregularly irregular, hard to appreciate any M/R/G Decreased BS at the bases Farley in place with blood tinged urine but better today No pedal edema ? IO: -40 cc ? Data: No labs today ? CXR from yesterday showed elevated left hemidiaphragm, bibasilar pleuroparenchymal opacities suggesting pleural effusions with associated atelectasis. No change ? CT brain: 1. ?Findings as described above consistent with subacute/chronic microvascular disease involving the cerebral hemispheres and cerebellum. 2. ?Mild ex vacuo ventricular dilatation resulting from central atrophy as noted. 3. ?Extracranial metallic foreign body within the right temporal fossa as described above ? ECHO 04/2019: - The left ventricle is normal in size. Left ventricular systolic function is normal. EF = 60 ? 5% (2D 4-ch.) Grade II left ventricular diastolic dysfunction. - The right ventricle is normal in size. Right ventricular systolic function is normal. Right ventricular systolic function is normal on limited views. - The left atrial cavity is mildly dilated. - There is severe aortic valve stenosis caused by calcified valve. AV area is 0.56 ?cm? (0.26 cm?/m?) by continuity, VTI. The peak gradient is 76 mmHg, the mean gradient is 48 mmHg and the dimensionless valve index is 0.17. ? IMPRESSION: Mr Shah is an 79 year old white gentleman with PMH significant for aortic stenosis, CAD, PAF, HTN, and HL underwent 2V CABG and AVR on 07/04 and course complicated by encephalopathy and other issues. ? 1. Resolving acute encephalopathy - was likely from narcotics/ acute illness/ subacute chronic vascular disease of brain 2. Resolving acute post-op resp insuficiency 3. B/l pleural effusions and atelectasis with elevated L HD 4. S/p CABG times 2 and AVR (bio) on 07/04 5. Improving MAURO 6. A.fib, rate controlled 7. Advanced age 8. Anemia of acute illness (antiipated) and hematuria ? PLAN: - IS Q1 - add acapella - Bds - increase ambulation - diet per ST - A.fib per CTVS; likely needs AC but on hold due to hematuria/ anemia/ mild thrombocytopenia - diuresis as tolerated - supportive care - monitor labs D/w RN ? SIGNATURE: Christopher Cook MD [facility] PAGER:[phone] [facility] PROGRESS HNO ID: [id number] Author: Downtime Note Service: ? Author Type: ? Type: Progress Notes Filed: 07/10/2019 3:03 AM Note Text: Epic Scheduled Downtime: 07/10/2019 1:00:00 AM to 07/10/2019 2:53:18 AM [facility] ECG COMPLETEon 07-09-2019 ECG COMPLETE NAME : ELIAS SHAH PID : [id number] : 1940 Gender : Male Race : ORD : [id number] Procedure Date : Jul 09 2019 06:15:23 Edit Date : Jul 09 2019 12:42:03 Diagnosis:ATRIAL FIBRILLATION LEFT AXIS DEVIATION LOW VOLTAGE QRS IN THE PRECORDIAL LEADS INFERIOR INFARCT (CITED ON OR BEFORE 06-JUL-2019) ST & T WAVE ABNORMALITY, CONSIDER LATERAL ISCHEMIA PROLONGED QT ABNORMAL ECG WHEN COMPARED WITH ECG OF 06-JUL-2019 16:54, NON-SPECIFIC CHANGE IN ST SEGMENT IN ANTERIOR LEADS NONSPECIFIC T WAVE ABNORMALITY NOW EVIDENT IN ANTERIOR LEADS Confirmed by MD CHUNG, ABDELRAHMAN ([id number]) on 07/09/2019 12:41:59 PM Ventricular Rate : 99 BPM Atrial Rate : 100 BPM QRS Duration : 110 ms Q-T Interval : 396 ms QTC Calculation(Bazett) : 508 ms R Hammond : -45 degrees T Hammond : 146 degrees Test Reason : Check QT Location : 6 : CVICU 3229 Overread By : MD CHUNG,ABDELRAHMAN Edited By : MD CHUNG,ABDELRAHMAN Referred By : WAYNE RIVERS Acquired by : ANGELY LYNNE [facility] PROGRESSon 07-09-2019 PROGRESS HNO ID: [id number] Author: Wayne Rivers Service: Cardiac Surgery Author Type: Physician Type: Progress Notes Filed: 07/09/2019 12:50 PM Note Text: CARDIOTHORACIC SURGERY POSTOP PROGRESS NOTE SERVICE DATE: 07/09/2019 SERVICE TIME: 12:41 PM Subjective S/P SURGERY: Procedure(s) (LRB): AVR W/ CARDIOPULMONARY BYPASS W/ PROSTHETIC OTHER THAN HOMOGRAFT/ STENTLESS TISSUE VALVE (N/A) BYPASS GRAFT ARTERY CORONARY ON-PUMP SINGLE CORONARY ARTERIAL GRAFT (N/A) BYPASS GRAFT ARTERY CORONARY ON-PUMP USING VENOUS GRAFT(S) AND ARTERIAL GRAFT(S) SINGLE VEIN GRAFT (N/A) ENDOSCOPIC HARVEST VEIN FOR CORONARY ARTERY BYPASS PROCEDURE (N/A) DATE OF SURGERY: 07/04/2019 POSTOP DAY #5 LOS: 5 INTERVAL EVENTS / PERTINENT ROS: Much more alert, conversant with no neuro deficit. Eating Lunch. Little pain. Trying to cough up phlegm Persistent hematuria without clots or obstruction. AF with better rate control, on IV amio Objective Admission Weight: 90.7 kg (200 lb) BP 113/64 Pulse 89 Temp 36.6 ?C (97.9 ?F) (Temporal) Resp 22 Ht 182.9 cm (6') Wt 95.8 kg (211 lb 3.2 oz) SpO2 95% BMI 28.64 kg/m? Body surface area is 2.21 meters squared. Min/Max/Average Temperature AND Blood Pressure: Temp (24hrs), Av.7 ?C (98 ?F), Min:36.3 ?C (97.3 ?F), Max:36.9 ?C (98.4 ?F) Systolic (24hrs), Av , Min:113 , Max:164 Diastolic (24hrs), Av, Min:42, Max:101 Intake/Output Summary (Last 24 hours) at 07/09/2019 1241 Last data filed at 07/09/2019 1000 Gross per 24 hour Intake 961 ml Output 1470 ml Net -509 ml TELEMETRY: atrial fibrillation PHYSICAL EXAM: On examination, the patient is awake, alert, and is breathing comfortably. Vital signs are: BP 137/77 Pulse 65 Temp 36.7 ?C (98.1 ?F) Resp 20 Ht 180.3 cm (5' 11) Wt 86.4 kg (190 lb 7.6 oz) SpO2 99% BMI 26.57 kg/m2. There is no JVD. Breath sounds are clear bilaterally. The sternal wound is intact and the sternum is stable. The cardiac rhythm is irregular. There are no rubs, gallops, or murmurs. The carotid, subclavian, and radial pulses are 2+ and equal bilaterally. The abdomen is soft and non-tender. There are no abdominal masses. There is no hepatojugular reflux. The saphenous vein harvest sites are intact. There is no pretibial edema. There is no clubbing or cyanosis. The neuro exam is grossly non focal. Farley has cortés red urine without clots. Lines, Drains, and Airways Line Introducer 07/04/19 Right Neck 5 days Peripheral 07/04/19 Assessment Short Right Hand 18 Gauge 5 days Drain Indwelling Urinary Catheter 07/04/19 Assessment Temperature Monitoring 24 Fr 5 days DATA: Diagnostic tests reviewed for today's visit: Significant Lab Results: see below Recent Labs 07/09/19 0538 07/08/19 0505 07/07/19 1700 07/07/19 1105 07/07/19 0455 RBC 2.69* 2.59* 2.13* -- 2.37* WBC 8.95 9.51* 12.55* -- 10.53* HB 8.1* 7.8* 6.5* -- 7.3* HCT 25.0* 24.4* 20.0* -- 22.6* PLT 131* 104* 94* -- 93* INR -- -- 1.13 -- -- APTT -- -- 31.0 -- -- NA 142 142 -- -- 142 K 3.4* 3.7 -- -- 4.0 CHLOR 111* 112* -- -- 112* CO2 26 26 -- -- 23 BUN 43* 43* -- -- 36* CREAT 1.31* 1.58* -- -- 1.71* GLUC 133* 113* -- -- 123* CA 8.5 8.3* -- -- 8.0* MG -- -- -- -- 2.9* TPROT -- -- -- 5.8* -- TBILI -- -- -- 0.3 -- ALKPHOS -- -- -- 38* -- ALT -- -- -- 11* -- AST -- -- -- 77* -- ANION 8 8 -- -- 11 Recent Labs 07/07/19 0855 PH 7.382 PCO2 36.8 PO2 101.0 BE -2.8 Assessment/Plan 79 yo male with severe symptomatic aortic stenosis, CAD, and paroxysmal atrial fibrillation who presented for elective AVR and myocardial revascularization on 07/04/19. Post op course has been complicated by intraop coagulopathy, altered mental status, hematuria, and anemia. ? 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ian Trifecta valve and s/p CABGx2 (HARRINGTON-LAD, SVG-ramus) -POD#5 -c/w ASA, statin, BB - convert back to PO metoprolol -Pain control with Tylenol -Bowel regimen -Increase activity -Check post op echo - done 07/09 ? Anticipated acute hypoxic pulmonary insufficiency s/p CTS -resolved -Encourage IS and CANDDB ? Paroxysmal Atrial Fibrillation -s/p LORENE clip on 07/04/19 -VR improved -Rates controlled currently, but still in afib -c/w Metoprolol PO; dc IV metoprolol -DC IV Amiodarone; convert to PO Acute Encephalopathy -likely due to narcotic pain meds and anesthesia since much improved since discontinuation -resolved ? HTN -SBP 150-160s - Metoprolol po -resume amlodipine ? MAURO -Creatinine trending back down (1.71>>1.57) -Avoid nephrotoxic agents -Monitor BMP ? Acute blood loss anemia -Due to surgery and hematuria -s/p multiple PRBC transfusions post-op -c/w Iron supplement and monitor CBC ? Dysphagia -Speech therapy following -Recommended modified barium swallow ? Mild Thrombocytopenia -improving. Monitor ? Leukocytosis -Trending down. Monitor ? Hematuria -c/w farley and intermittent bladder irrigation -Urology managing ? DVT ppx -SCDs -No lovenox due to anemia and thrombocytopenia ? ? SIGNATURE: Wayne Rivers MD PATIENT NAME: Elias Shah DATE: July 09, 2019 TIME: 12:41 PM PAGER/CONTACT #: [phone] Normal [facility] PROGRESS HNO ID: [id number] Author: Christopher Cook Service: Critical Care Author Type: Physician Type: Progress Notes Filed: 07/09/2019 10:37 AM Note Text: Notes and meds reviewed. No major issues overnight. Full ROS with pt and RN. Has some hoarseness of voice. Some pain in the chest. No other complaints. On exam: 113/ 64, 89, 22, 36.3, 95% on RA Up in chair, NAD, looks chronically ill Chest wall binder in place A, O times 2, no FND Some hoarseness of voice Irregularly irregular, hard to appreciate any M/R/G Decreased BS at the bases Farley in place No pedal edema IO; -1.2 Data: Na 142, K 3.4, Cl 111, HCO3 26, BUN 43, Cr 1.3 Hb 8.1, Plt 131, WCC 8.9 CXR from yesterday showed elevated left hemidiaphragm. ?Bibasilar pleuroparenchymal opacities suggesting pleural effusions with associated atelectasis. CT brain: 1. ?Findings as described above consistent with subacute/chronic microvascular disease involving the cerebral hemispheres and cerebellum. 2. ?Mild ex vacuo ventricular dilatation resulting from central atrophy as noted. 3. ?Extracranial metallic foreign body within the right temporal fossa as described above ECHO 04/2019: - The left ventricle is normal in size. Left ventricular systolic function is normal. EF = 60 ? 5% (2D 4-ch.) Grade II left ventricular diastolic dysfunction. - The right ventricle is normal in size. Right ventricular systolic function is normal. Right ventricular systolic function is normal on limited views. - The left atrial cavity is mildly dilated. - There is severe aortic valve stenosis caused by calcified valve. AV area is 0.56 ?cm? (0.26 cm?/m?) by continuity, VTI. The peak gradient is 76 mmHg, the mean gradient is 48 mmHg and the dimensionless valve index is 0.17. IMPRESSION: Mr Shah is an 79 year old white gentleman with PMH significant for aortic stenosis, CAD, PAF, HTN, and HL underwent 2V CABG and AVR on 07/04 and course complicated by encephalopathy and other issues. 1. Resolving acute encephalopathy - likely from narcotics/ acute illness/ subacute chronic vascular disease of brain 2. Resolving acute post-op resp insuficiency 3. B/l pleural effusions and atelectasis with elevated L HD 4. S/p CABG times 2 and AVR (bio) on 07/04 5. Improving MAURO 6. A.fib, rate controlled 7. Advanced age 8. Anemia of acute illness (antiipated) and hematuria PLAN: - IS Q1 - increase ambulation - diet per ST - A.fib per CTVS; likely needs AC - diuresis as tolerated - supportive care - monitor labs Code status: full PROGNOSIS: Fair Patient/Family Updated: no family at the bedside PATIENT CHECKLIST Are restraints necessary: No Deep vein thrombosis prophylaxis administered? Yes Stress ulcer prophylaxis? Yes Farley catheter necessary? Yes Is central line essential? Yes Discussed with RN. This patient has a high probability of sudden, clinically significant deterioration, which requires the highest level of physician preparedness to intervene urgently. I managed/supervised life or organ supporting interventions that required frequent physician assessment. I devoted my full attention to the direct care of this patient for the amount of time indicated below. Time I spent with family or surrogate(s) is included only if the patient was incapable of providing the necessary information or participating in medical decision making. Time devoted to teaching and to any procedures I billed separately is not included. Critical Care Documentation: The patient has the following organ/system impairment(s): Acute kidney injury, Complex life-threatening medical problem(s), Encephalopathy and s/p CABG/ AVR Time spent providing critical care services: 30 minutes. SIGNATURE: Christopher Cook MD [facility] PAGER:[phone] [facility] THERAPY NTon 07-09-2019 THERAPY NT HNO ID: [id number] Author: Daria (Ccc-Pipe Or Steam Fitter Furnace Installer) NEREYDA Mccauley Service: Speech/Swallow Author Type: Speech Language Pathologist Type: Therapy (PT/OT/Speech/Resp) Filed: 07/09/2019 8:17 AM Note Text: SPEECH THERAPY MISSED VISIT SERVICE DATE: 07/09/2019 SERVICE TIME: 816 to 816 ROOM: [place] [address] Attempted MBSS Evaluation. Patient not seen due to Other: See Comment. Aware of Modified Barium Swallow Study order. Will complete as scheduled. SIGNATURE: JAYNA Lopez PATIENT NAME: Elias Yen Alyssa DATE: July 09, 2019 TIME: 8:17 AM [facility] ALLIED HEALTHon 07-08-2019 ALLIED HEALTH HNO ID: [id number] Author: Marybeth Park RN Service: ? Author Type: Registered Nurse Type: Allied Health Filed: 07/08/2019 11:14 AM Note Text: CARDIAC REHABILITATION PATIENT EDUCATION PROGRESS NOTE Name: Elias Shah Date of Service: 07/08/19 Time of Service: 11:11 AM Talked to pt nurse , suggested to wait till Thursday to educate about cardiac rehab, pt not appropriate at this time Signature: Marybeth Park RN Pager: [phone] Date: July 08, 2019 Time: 10:27 AM [facility] CASE MANAGEMon 07-08-2019 CASE MANAGEM HNO ID: [id number] Author: Imelda (Rn) AGUSTO Rizvi Service: ? Author Type: Registered Nurse Type: Care Mgt Progress Note Filed: 07/08/2019 2:47 PM Note Text: CARE MANAGEMENT PROGRESS NOTE SERVICE DATE: 07/08/2019 SERVICE TIME: 2:45 PM LOS: 4 days FREEDOM OF CHOICE GIVEN: Yes acute rehab The patient and/or family has been given the Provider List: Yes Provider List: Rehab Facility Preference: [facility] Rehab Needs Prior to Discharge: Accepting Facility;Discharge Transportation Met with pt and sister to discuss disch plan.. Pt and sister are in agreement for [facility] rehab. Referral created. SIGNATURE: Imelda Rizvi RN PATIENT NAME: Elias Shah DATE: July 08, 2019 TIME: 2:45 PM PAGER/CONTACT #: [phone] [facility] CASE MANAGEM HNO ID: [id number] Author: Serene Amaya Service: Care Management Author Type: ? Type: Care Mgt Progress Note Filed: 07/08/2019 9:56 AM Note Text: CARE MANAGEMENT PROGRESS NOTE SERVICE DATE: 07/08/2019 SERVICE TIME: 844 LOS: 4 days IM letter given to patient on . SIGNATURE: Serene Amaya PATIENT NAME: Elias Shah DATE: July 08, 2019 TIME: 9:56 AM PAGER/CONTACT #: [phone] [facility] CONSULT PROGon 07-08-2019 CONSULT PROG HNO ID: [id number] Author: Tahir Riley MD Service: Neurology ICU Author Type: Resident Type: Consult Progress Note Filed: 07/08/2019 8:56 PM Note Text: Attestation signed by Woodrow Munoz at 07/09/2019 10:49 AM Attending Note I personally saw and examined the patient. I reviewed the resident's note. I agree with the resident's assessment and plan unless otherwise noted. The patient is neurologically improving and the workup has been canceled by the primary service. No further recommendations at this time. Please call if we can be of further assistance. Signature: Woodrow Munoz MD Date: 07/09/2019 Time: 10:48 AM . NEUROLOGY CONSULT PROGRESS NOTE SERVICE DATE: 07/08/2019 SERVICE TIME: 7:44 PM Current Attending Provider: Wayne Rivers Subjective Neurology was asked by the CVICU team to evaluate Elias Shah, a 79 year old male for a chief complaint of altered mental status, global weakness. Our recommendations of care will be communicated by shared medical record. This is Mr. Elias Shah a 79 M with hx of HTN, HLD, CAD s/p CABG x 2, aortic stenosis s/p TAVR, paroxysmal Afib, and coagulopathy w/ thrombocytopenia who presented to [facility] for CABG and AVR. Patient is now s/p CABG and s/p TAVR on 07/04/19. Patient does have Afib and there was debate over starting heparin gtt today; however, it was not started due to gross hematuria. Neurology was consulted for acute encephalopathy with global weakness. Per nurse, patient has been experiencing altered mental status over the past 24 hours. No focal neurologic findings. Patient is confused and unable to provide any additional history for me at this time. Interval History: Today, Elias is improved. He is more alert and oriented to person and place. He states that he feels better after having a bowel movement. Objective Physical Examination: Head: Normocephalic, no masses, lesions, tenderness or abnormalities Lungs: Scattered rhonchi and rales Heart: irregularly irregular Abdomen: Abdomen soft, non-tender. Bowel sounds normal. No masses, organomegaly Extremities: No deformities, edema, skin discoloration, clubbing or cyanosis. Good capillary refill. Musculoskeletal: No joint swelling, deformity, or tenderness Peripheral Pulses: Normal ? Neurological: ? Mental Status: Alert, oriented to to person only. Follows most simple commands ? Cranial Nerves: ? CNII: Visual acuity normal ? CNIII, IV, : Pupils equal, round and reactive to light, full extraoccular movements, without nystagmus ? CN V: Facial sensation intact bilaterally to fine touch ? CN VII: Facial muscles symmetric and strong, No noted facial droop ? CN VIII: Hears finger rub well bilaterally ? CN IX: Gag Reflex Not examined ? CN X: Palate elevates symmetrically ? CN XI: Full strength shoulder shrug bilaterally ? CN XII: Tongue protrusion full and midline ? Motor: 5/5 to BLUE, 3/5 to BLLE. Difficulty performing formal strength testing due to lack of cooperation from patient ? Sensation: Intact to light touch. ? Pt had a slow shuffling gait that required assistance. New Labs: WBC (thou/cmm) Date Value 07/08/2019 9.51 07/07/2019 12.55 07/07/2019 10.53 RBC (mil/cmm) Date Value 07/08/2019 2.59 07/07/2019 2.13 07/07/2019 2.37 Platelet Count (thou/cmm) Date Value 07/08/2019 104 07/07/2019 94 07/07/2019 93 BUN (mg/dL) Date Value 07/08/2019 43 07/07/2019 36 07/06/2019 33 Creatinine (mg/dL) Date Value 07/08/2019 1.58 07/07/2019 1.71 07/06/2019 1.71 CBC, Coags, BMP, Mg, Phos Recent Labs 07/08/19 0505 07/07/19 1700 07/07/19 0455 07/06/19 1648 07/06/19 0512 INR -- 1.13 -- -- -- APTT -- 31.0 -- -- -- NA 142 -- 142 140 140 K 3.7 -- 4.0 4.3 4.0 CHLOR 112* -- 112* 111* 111* CO2 26 -- 23 22 23 GLUC 113* -- 123* 131* 131* CA 8.3* -- 8.0* 8.0* 7.9* MG -- -- 2.9* -- 2.3 Liver Function, Amylase, AND Lipase Recent Labs 07/07/19 1105 TPROT 5.8* ALB 3.0* ALT 11* AST 77* ALKPHOS 38* TBILI 0.3 BEM Reading: Impression ? This EEG is suggestive of a moderate diffuse encephalopathy. No ? epileptiform discharges or EEG seizures were seen during this recording. DATA: Diagnostic tests reviewed for today's visit: Most recent labs and imaging results. Impression/Recommenda tions Active Problems: Acute encephalopathy - 79 M with significant medical comorbidities listed above who is s/p CABG and s/p TAVR this admission. Neurology was consulted for AMS and global weakness. No focal neurologic findings. -Pt improving. More alert and oriented today. -CT brain was unremarkable. -Recent carotid U/S imaging done in March 2019 was unremarkable. -Ammonia minimally elevated. -Free T3 low, TSH minimally elevated. -Can check Vitamin B12 and Vitamin D levels. -MRI was cancelled today Resolved Problems: * No resolved hospital problems. * SIGNATURE: Tahir Riley MD PATIENT NAME: Elias Shah DATE: July 08, 2019 TIME: 7:44 PM PAGER/CONTACT #: [phone] [facility] NUTRITIONon 07-08-2019 NUTRITION HNO ID: [id number] Author: Yasmine Sanchez RD Service: Nutrition Therapy Author Type: Registered Dietitian Type: Nutrition Filed: 07/08/2019 12:40 PM Note Text: NUTRITION THERAPY REASSESSMENT SERVICE DATE: 07/08/2019 SERVICE TIME: 8:39 AM RECOMMENDED MALNUTRITION DIAGNOSIS: MODERATE PROTEIN-CALORIE MALNUTRITION In the context of Acute Illness or Injury based on: Subcutaneous Fat Loss: Mild Loss Muscle Loss Mild Loss NUTRITION CARE PLAN: Problem, Etiology and Signs/Symptoms: Increased nutrient needs kcal/protein related to increased nutrient needs from surgery as evidenced by CABG 07/04/19 Intervention: Noted currently NPO If able to progress diet recommend Heart Healthy Diet Add supplements Ensure Enlive BID to provide 350 kcal and 20 gm protein per serving If unable to advance diet Recommend tube feeding via corpak Isosource 1.5 at goal rate 56 mL/hr to provide 1344 mL product - 2016 kcal, 91 gm protein and 1027 mL free water. Flush goal 165 mL 6 times per day Coordination of Care: Nursing Monitor and Evaluation: Goal: Meet >75% of estimated needs Monitor fluid/electrolyte balance Monitor labs, I/Os, vital signs, weight Discharge Nutrition Recommendations: To be determined Chart reviewed for reassessment Per HPI: 79 yo male underwent CABG and AVR on 07/04/19. Interval History: Remains in ICU, NPO awaiting Speech re-eval for diet progression. Patient endorsed hungry, will supplement as po advanced, noted edema and reports some flatus. Unsure of last BM. ACTIVE PROBLEM LIST Abnormal Electrocardiogram (Ecg) (Ekg) Anemia, Unspecified Aortic Valve Stenosis Atrial Fibrillation With Rapid Ventricular Response (Hcc) Mauro (Acute Kidney Injury) (Hcc) Acute Metabolic Encephalopathy Vitamin D Deficiency Small Bowel Obstruction (Hcc) Paroxysmal Atrial Fibrillation (Hcc) Lbbb (Left Bundle Branch Block) Incarcerated Umbilical Hernia Declining Functional Status Essential Hypertension Hyperlipidemia Impaired Cognition Aortic Stenosis PAST MEDICAL HISTORY Diagnosis Date - Acute kidney injury (HCC) - Acute metabolic encephalopathy - Anemia - Aortic stenosis - Atrial fibrillation (HCC) - Bowel obstruction (HCC) - Coronary artery disease - Hyperlipidemia - Hypertension - Left bundle branch block - Mitral valve annular calcification - Prolonged QT interval - Vitamin D deficiency PAST SURGICAL HISTORY Procedure Laterality Date - REPAIR UMBILICAL HERNIA 12/04/2018 after bowel perforation done at [facility] Dr. Young Social History Tobacco Use - Smoking status: Former Smoker Packs/day: 1.00 Years: 5.00 Pack years: 5.00 Last attempt to quit: 11/23/1954 Years since quittin.6 - Smokeless tobacco: Never Used Substance Use Topics - Alcohol use: Yes Comment: social - Drug use: Never Employer And Job Title: None on file Years Of Education Completed: Not specified Marital Status: Social History Social History Narrative Not on file Orders Placed This Encounter DIET NPO Standing Status: Standing Number of Occurrences: 1 Lines and Drains: Introducer 07/04/19 Right Neck (Active) Peripheral 07/04/19 Assessment Short Right Hand 18 Gauge (Active) Indwelling Urinary Catheter 07/04/19 Assessment Temperature Monitoring 24 Fr (Active) Nutritional Intake: 0-25% estimated energy needs over the past 4 day(s) with decreased po and now NPO status GI symptoms: swallowing problems, noted per speech therapy 07/07/19 Nutrition Abdominal Exam:, abdomen is nondistended and bowel sounds are hypoactive, per clinical documentation ANTHROPOMETRICS Height: 182.9 cm (6') Admission Weight: 90.7 kg (200 lb) Current Weight: 100.7 kg (222 lb 0.1 oz) Body mass index is 30.11 kg/m?. 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 05/11/19 : 88.5 kg (195 lb), cardiology 05/11/19 : 88.8 kg (195 lb 12.8 oz) 04/13/19 : 88.9 kg (196 lb) [place] Body Weight: 80.9kg Resting Metabolic Rate: 1755 Estimated kilocalorie needs: 6494-2487 kilocalories determined by 25-30 kcal/kg Estimated protein needs: 97-121 grams determined by 1.2-1.5 g/kg [place] weight Estimated fluid needs: 2296-5842 milliliters based on 1 mL per kcal NUTRITION FOCUSED PHYSICAL EXAM: Subcutaneous Fat Loss Orbital Mild Triceps Mild Mid-axillary at the iliac crest Unable to determine at this time Muscle Loss Locations: Temporalis Mild Pectoralis No muscle loss Deltoids No muscle loss Interosseous No muscle loss Latissimus dorsi, trapezius Unable to determine at this time Quadriceps Unable to determine at this time Gastrocnemius Unable to determine at this time Potential micronutrient deficiency revealed in: No deficiency identified Edema: Yes Lower extremities Mild 1+, Generalized and penis Ascites: No Assessment of Functional Status: Able to do little activity and spend most of the day in bed or chair for a duration of 4 days Temperature Max in 24 hours: Temp (24hrs), Av.7 ?C (98 ?F), Min:36.1 ?C (97 ?F), Max:37.9 ?C (100.2 ?F) BP 164/63 Pulse 93 Temp 36.2 ?C (97.2 ?F) (Temporal) Resp 15 Ht 182.9 cm (6') Wt 100.7 kg (222 lb 0.1 oz) SpO2 94% BMI 30.11 kg/m? Recent Labs 07/08/19 0505 07/07/19 1105 07/07/19 0455 GLUC 113* -- -- 123* BUN 43* -- -- 36* CREAT 1.58* -- -- 1.71* NA 142 -- -- 142 K 3.7 -- -- 4.0 CHLOR 112* -- -- 112* CO2 26 -- -- 23 ALB -- -- 3.0* -- HB 7.8* < > -- 7.3* HCT 24.4* < > -- 22.6* WBC 9.51* < > -- 10.53* MG -- -- -- 2.9* < > = values in this interval not displayed. Potential Signs of Inflammation: leukocytosis, hyperglycemia, hypoalbuminemia, hyperthermia, imaging studies, acute post-operative and chronic condition Surgical Incision 07/04/19 Chest - Midsternal (Active) Dressing Status None: Open to Air 07/07/2019 7:00 PM Incision Closures Topical Skin Adhesive 07/07/2019 7:00 PM Drainage Description None 07/07/2019 7:00 PM Drainage Amount None 07/07/2019 7:00 PM Edges Intact 07/07/2019 7:00 PM Hematoma No 07/07/2019 7:00 PM Number of days: 4 Surgical Incision 07/04/19 Leg - Left (Active) Dressing Status None: Open to Air 07/07/2019 7:00 PM Frequency of Dressing Change As Needed 07/06/2019 7:00 PM Dressing /Treatment Type Elastic Bandage/Wrap 07/06/2019 7:00 PM Incision Closures Topical Skin Adhesive 07/07/2019 7:00 PM Drainage Description None 07/07/2019 7:00 PM Drainage Amount None 07/07/2019 7:00 PM Edges Intact 07/07/2019 7:00 PM Hematoma No 07/07/2019 7:00 PM Number of days: 4 Vitamin and Mineral Labs in the past year: Recent Labs 07/07/19 2320 04/22/19 1359 B12 227 -- TIBC -- 373 FE -- 38* EDDI -- 42.3 MNT Billing Type: Re-assess/15 min 3 units SIGNATURE: Yasmine Sanchez RD, LD PATIENT NAME: Elias Shah DATE: July 08, 2019 TIME: 8:39 AM PAGER: [phone] [facility] PROGRESSon 07-08-2019 PROGRESS HNO ID: [id number] Author: Nohemi Glover Service: Cardiovascular Disease Author Type: Nurse Practitioner Type: Progress Notes Filed: 07/08/2019 11:39 PM Note Text: CARDIOTHORACIC SURGERY POSTOP PROGRESS NOTE SERVICE DATE: 07/08/2019 SERVICE TIME: 10:00AM Subjective S/P SURGERY: Procedure(s) (LRB): AVR W/ CARDIOPULMONARY BYPASS W/ PROSTHETIC OTHER THAN HOMOGRAFT/ STENTLESS TISSUE VALVE (N/A) BYPASS GRAFT ARTERY CORONARY ON-PUMP SINGLE CORONARY ARTERIAL GRAFT (N/A) BYPASS GRAFT ARTERY CORONARY ON-PUMP USING VENOUS GRAFT(S) AND ARTERIAL GRAFT(S) SINGLE VEIN GRAFT (N/A) ENDOSCOPIC HARVEST VEIN FOR CORONARY ARTERY BYPASS PROCEDURE (N/A) DATE OF SURGERY: 07/04/2019 POSTOP DAY #4 LOS: 4 INTERVAL EVENTS / PERTINENT ROS: Patient c/o mild incisional pain. Denies c/o SOB, N/V. Denies feeling confused. RN reports pt is much more alert today Objective Admission Weight: 90.7 kg (200 lb) BP 164/63 Pulse 97 Temp 36.6 ?C (97.9 ?F) (Temporal) Resp 17 Ht 182.9 cm (6') Wt 100.7 kg (222 lb 0.1 oz) SpO2 95% BMI 30.11 kg/m? Body surface area is 2.26 meters squared. Min/Max/Average Temperature AND Blood Pressure: Temp (24hrs), Av.4 ?C (97.6 ?F), Min:36.1 ?C (97 ?F), Max:36.9 ?C (98.4 ?F) Systolic (24hrs), Av , Min:131 , Max:164 Diastolic (24hrs), Av, Min:50, Max:63 Intake/Output Summary (Last 24 hours) at 07/08/2019 1257 Last data filed at 07/08/2019 1100 Gross per 24 hour Intake 1091 ml Output 910 ml Net 181 ml Current Facility-Administered Medications: - metoprolol 10 mg injection (LOPRESSOR) - ECHO AND perflutren lipid microspheres 1.1 mg/mL 1.3 mL injection (DEFINITY) - fentaNYL 50 mcg/mL 25-50 mcg injection (SUBLIMAZE) - acetaminophen 650 mg suppository (TYLENOL) - ferrous sulfate 325 mg tab(s) - ascorbic acid (vitamin C) 500 mg tab(s) (VITAMIN C) - folic acid 1 mg tab(s) - [] amiodarone 360 mg in D5W 200 mL (NEXTERONE) FOLLOWED BY amiodarone 360 mg in D5W 200 mL (NEXTERONE) - senna-docusate 8.6-50 mg 1 tablet (SENNA-S) - polyethylene glycol 3350 17 g packet (MIRALAX, GLYCOLAX) - bisacodyl 10 mg suppository (DULCOLAX) - pantoprazole DR 40 mg tab(s) (PROTONIX) - tamsulosin ER 0.4 mg cap(s) (FLOMAX) - aspirin 162 mg chewable tab(s) - potassium chloride iv piggyback 20 mEq/100 mL - magnesium sulfate in water 2 g in sterile water 50 ml - albuterol 2.5 mg /3 mL (0.083 %) 2.5 mg (PROVENTIL) - atorvastatin 40 mg tab(s) (LIPITOR) - ondansetron (PF) 4 mg injection (ZOFRAN) - belladonna-opium 16.2-60 mg 1 Suppository suppository (B and O 16-A) TELEMETRY: atrial fibrillation PHYSICAL EXAM: General Appearance: obese, no distress and AANDOx3, awake, calm. Follows commands. Answers questions appropriately. Makes eye contact Skin: Midsternal incision dry AND intact., SVG incisions dry AND intact., warm and dry Lungs: respiratory effort: normal and coarse rhonchi throughout Heart: S1, S2 normal, pacing wires present and irregular rate and rhythm Abdomen: soft, tender and bowel sounds present Genitourinary: Farley intact, urine color is brownish-red Extremities: edema: 2+ Lines, Drains, and Airways Line Arterial Line 07/04/19 Arterial Line Left Radial 4 days Introducer 07/04/19 Right Neck 4 days Peripheral 07/04/19 Assessment Short Right Hand 18 Gauge 4 days Drain Indwelling Urinary Catheter 07/04/19 Assessment Temperature Monitoring 24 Fr 4 days DATA: Diagnostic tests reviewed for today's visit: Recent Labs 07/08/19 0505 07/07/19 1700 07/07/19 1105 07/07/19 0455 07/06/19 1648 07/06/19 0512 RBC 2.59* 2.13* -- 2.37* -- 2.34* WBC 9.51* 12.55* -- 10.53* -- 11.89* HB 7.8* 6.5* -- 7.3* -- 7.2* HCT 24.4* 20.0* -- 22.6* -- 21.7* PLT 104* 94* -- 93* -- 94* INR -- 1.13 -- -- -- -- APTT -- 31.0 -- -- -- -- NA 142 -- -- 142 140 140 K 3.7 -- -- 4.0 4.3 4.0 CHLOR 112* -- -- 112* 111* 111* CO2 26 -- -- 23 22 23 BUN 43* -- -- 36* 33* 26* CREAT 1.58* -- -- 1.71* 1.71* 1.33* GLUC 113* -- -- 123* 131* 131* CA 8.3* -- -- 8.0* 8.0* 7.9* MG -- -- -- 2.9* -- 2.3 TPROT -- -- 5.8* -- -- -- TBILI -- -- 0.3 -- -- -- ALKPHOS -- -- 38* -- -- -- ALT -- -- 11* -- -- -- AST -- -- 77* -- -- -- ANION 8 -- -- 11 11 10 Recent Labs 07/07/19 0855 PH 7.382 PCO2 36.8 PO2 101.0 BE -2.8 Assessment/Plan 79 yo male with severe symptomatic aortic stenosis, CAD, and paroxysmal atrial fibrillation who presented for elective AVR and myocardial revascularization on 07/04/19. Post op course has been complicated by intraop coagulopathy, altered mental status, hematuria, and anemia. 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 Cristhian Trifecta valve and s/p CABGx2 (HARRINGTON-LAD, SVG-ramus) -POD#4 -c/w ASA, statin, BB -Pain control with Tylenol -Bowel regimen -Increase activity -Check post op echo Anticipated acute hypoxic pulmonary insufficiency s/p CTS -Prolonged intubated post op due to hemodynamic instability/coagulopa thy -Extubated on POD#1 -Wean O2 -Encourage IS and CANDDB Paroxysmal Atrial Fibrillation -s/p LORENE clip on 07/04/19 -RVR unresponsive to metoprolol only and requiring IV Amiodarone -Rates controlled currently, but still in afib -c/w Metoprolol IVP q6hr and IV Amiodarone; convert to PO once speech therapy ok for PO -EKG in AM to check QT -No OAC previously due to history of anemia and guiac positive stools Acute Encephalopathy -likely due to narcotic pain meds and anesthesia since much improved since discontinuation -CT head negative for acute process -Labs unremarkable -Appreciate neuro input -Per Dr. Rivers, will hold off on MRI brain and EEG for now since mental status is much improved today and unlikely patient can tolerate MRI at this time. -Tylenol for pain and Fentanyl for breakthrough severe pain (try to avoid) -PT/OT/ST HTN -SBP 150-160s -Increased Metoprolol IVP to 10mg q6h MAURO -Creatinine trending back down (1.71>>1.57) -Avoid nephrotoxic agents -Monitor BMP Acute blood loss anemia -Due to surgery and hematuria -s/p multiple PRBC transfusions post-op -c/w Iron supplement and monitor CBC Dysphagia -Speech therapy following -Recommended modified barium swallow Mild Thrombocytopenia -improving. Monitor Leukocytosis -Trending down. Monitor Hematuria -c/w farley and intermittent bladder irrigation -Urology managing DVT ppx -SCDs -No lovenox due to anemia and thrombocytopenia Tests/Labs Ordered: 1. Electrocardiogram (EKG) 2. BMP 3. CBC SIGNATURE: Nohemi Glover APRN.CNP PATIENT NAME: Elias Shah DATE: July 08, 2019 TIME: 12:57 PM PAGER/CONTACT #: [phone] [phone] [facility] PROGRESS HNO ID: [id number] Author: Marlon Dubon Jr. Service: Critical Care Author Type: Physician Type: Progress Notes Filed: 07/08/2019 9:56 AM Note Text: MICU - PROGRESS NOTE SERVICE DATE: July 08, 2019 Admission Date: 07/04/2019 AGE: [age] year old LOS: 4 days Subjective Cc: acute postoperative respiratory insufficiency Appreciate neurology input yesterday on weakness, altered mental status Today alert, follows, seems appropriate No chest pain or shortness of breath at time of my assessment No cough Objective PROBLEMS: ACTIVE PROBLEM LIST Abnormal Electrocardiogram (Ecg) (Ekg) Anemia, Unspecified Aortic Valve Stenosis Atrial Fibrillation With Rapid Ventricular Response (Hcc) Mauro (Acute Kidney Injury) (Hcc) Acute Metabolic Encephalopathy Vitamin D Deficiency Small Bowel Obstruction (Hcc) Paroxysmal Atrial Fibrillation (Hcc) Lbbb (Left Bundle Branch Block) Incarcerated Umbilical Hernia Declining Functional Status Essential Hypertension Hyperlipidemia Impaired Cognition Aortic Stenosis PAST MEDICAL HISTORY Diagnosis Date - Acute kidney injury (HCC) - Acute metabolic encephalopathy - Anemia - Aortic stenosis - Atrial fibrillation (HCC) - Bowel obstruction (HCC) - Coronary artery disease - Hyperlipidemia - Hypertension - Left bundle branch block - Mitral valve annular calcification - Prolonged QT interval - Vitamin D deficiency PAST SURGICAL HISTORY Procedure Laterality Date - REPAIR UMBILICAL HERNIA 12/04/2018 after bowel perforation done at [facility] Dr. Young Social History Socioeconomic History Marital status: Spouse name: Not on file Number of children: Not on file Years of education: Not on file Highest education level: Not on file Occupational History Not on file Social Needs Financial resource strain: Not on file Food insecurity: Worry: Not on file Inability: Not on file Transportation needs: Medical: Not on file Non-medical: Not on file Tobacco Use Smoking status: Former Smoker Packs/day: 1.00 Years: 5.00 Pack years: 5 Quit date: 11/23/1954 Years since quittin.6 Smokeless tobacco: Never Used Substance and Sexual Activity Alcohol use: Yes Comment: social Drug use: Never Sexual activity: Not on file Lifestyle Physical activity: Days per week: Not on file Minutes per session: Not on file Stress: Not on file Relationships Social connections: Talks on phone: Not on file Gets together: Not on file Attends alevism service: Not on file Active member of club or organization: Not on file Attends meetings of clubs or organizations: Not on file Relationship status: Not on file Intimate partner violence: Fear of current or ex partner: Not on file Emotionally abused: Not on file Physically abused: Not on file Forced sexual activity: Not on file Other Topics Concerns: Service: No Blood Transfusions: Yes Caffeine Concern: No Occupational Exposure: Not Asked Hobby Hazards: Not Asked Sleep Concern: No Stress Concern: No Weight Concern: Not Asked Special Diet: No no restrictions Back Care: Not Asked Exercise: No sedentary Bike Helmet: Not Asked Seat Belt: Yes Self-Exams: Not Asked Social History Narrative Not on file VITAL SIGNS (last 24hrs min/max): Temp Av.9 ?C (96.6 ?F) Min: 35.9 ?C (96.6 ?F) Max: 35.9 ?C (96.6 ?F) Pulse Av Min: 60 Max: 80 Arterial BP 1 Min: 128/65 Max: 149/71 Cuff BP Min: 152/106 Max: 152/106 Pain Level: 0 Vital signs reviewed. BP 164/63 Pulse 93 Temp (Src) 97.3 (Temporal) Resp 15 Ht 6' 0 (1.83m) Wt 222 lb 0.1 oz (100.7kg) SpO2 94% BMI 30.10 kg/(m2). O2 Therapy: Nasal Cannula, Liters: 4 Temp (24hrs), Av.7 ?C (98.1 ?F), Min:36.1 ?C (97 ?F), Max:37.9 ?C (100.2 ?F) NET FLUID BALANCE Intake/Output Summary (Last 24 hours) at 07/08/2019 0803 Last data filed at 07/08/2019 0600 Gross per 24 hour Intake 1200 ml Output 1015 ml Net 185 ml MEDICATIONS Current Facility-Administered Medications Medication Dose Route Frequency - nitroglycerin 100 mg in D5W 250 mL 5-200 mcg/min INTRAVENOUS CONTINUOUS - metoprolol 5 mg injection (LOPRESSOR) 5 mg INTRAVENOUS q 4 H - morphine 2-4 mg injection 2-4 mg INTRAVENOUS q 4 H PRN - PHENYLephrine iv infusion 10 mg in NaCl 0.9% 250 mL (ASHANTI-SYNEPHRINE) 20-200 mcg/min INTRAVENOUS CONTINUOUS - ferrous sulfate 325 mg tab(s) 325 mg ORAL DAILY - ascorbic acid (vitamin C) 500 mg tab(s) (VITAMIN C) 500 mg ORAL DAILY - folic acid 1 mg tab(s) 1 mg ORAL DAILY - amiodarone 360 mg in D5W 200 mL (NEXTERONE) 0.5 mg/min INTRAVENOUS CONTINUOUS - senna-docusate 8.6-50 mg 1 tablet (SENNA-S) 1 tablet ORAL BID - polyethylene glycol 3350 17 g packet (MIRALAX, GLYCOLAX) 17 g ORAL DAILY - bisacodyl 10 mg suppository (DULCOLAX) 10 mg RECTAL DAILY PRN - pantoprazole DR 40 mg tab(s) (PROTONIX) 40 mg ORAL DAILY (6 AM) - tamsulosin ER 0.4 mg cap(s) (FLOMAX) 0.4 mg ORAL DAILY - aspirin 162 mg chewable tab(s) 162 mg ORAL DAILY - potassium chloride iv piggyback 20 mEq/100 mL 20 mEq INTRAVENOUS PRN - magnesium sulfate in water 2 g in sterile water 50 ml 2 g INTRAVENOUS PRN(NO DISPENSE) - acetaminophen 650 mg tab(s) (TYLENOL) 650 mg ORAL q 6 H PRN - albuterol 2.5 mg /3 mL (0.083 %) 2.5 mg (PROVENTIL) 2.5 mg INHALATION q 2 H PRN - atorvastatin 40 mg tab(s) (LIPITOR) 40 mg ORAL AT BEDTIME - ondansetron (PF) 4 mg injection (ZOFRAN) 4 mg INTRAVENOUS q 6 H PRN - belladonna-opium 16.2-60 mg 1 Suppository suppository (B and O 16-A) 1 Suppository RECTAL BID PRN Lines, Drains, and Airways Line Arterial Line 07/04/19 Arterial Line Left Radial 4 days Introducer 07/04/19 Right Neck 4 days Peripheral 07/04/19 Assessment Short Right Hand 18 Gauge 4 days Drain Indwelling Urinary Catheter 07/04/19 Assessment Temperature Monitoring 24 Fr 4 days PHYSICAL EXAM PERFORMED: General: no acute distress Cardiovascular: Regular, harness in place Respiratory: Diminished in bases Abdomen: Soft and Nontender Extremities: No cyanosis Neurologic: awake and follows Respiratory/Nursing Documentation: O2 Therapy: Nasal Cannula (07/08/19 0600) Invasive Ventilator Mode: Continuous Positive Airway Pressure;Pressure Support Ventilation (07/05/19809) Set Ventilator Respiratory Rate (BPM): 0 (07/05/19426) Total Respiratory Rate (BPM): 15 (07/05/19809) Tidal Volume Set (mL): 0 (07/05/19426) Exhaled Tidal Volume (mL): 521 (07/05/19809) Minute Volume (L): 7.03 (07/05/19809) Peak Inspiratory Pressure (cm H2O): 11 (07/05/19809) PEEP/CPAP (cm H2O): 5 (07/05/19809) HEMODYNAMIC DATA: Reviewed DATA: Diagnostic tests reviewed for today's visit, films/specimens were personally reviewed by me: Most recent labs and imaging results. LABS: Recent Labs 07/08/19 0505 07/07/19 1700 07/07/19 1105 07/07/19 0455 WBC 9.51* 12.55* -- 10.53* RBC 2.59* 2.13* -- 2.37* HB 7.8* 6.5* -- 7.3* HCT 24.4* 20.0* -- 22.6* MCV 94.2 93.9 -- 95.4 PLT 104* 94* -- 93* GLUC 113* -- -- 123* BUN 43* -- -- 36* CREAT 1.58* -- -- 1.71* NA 142 -- -- 142 K 3.7 -- -- 4.0 CHLOR 112* -- -- 112* CO2 26 -- -- 23 TPROT -- -- 5.8* -- ALB -- -- 3.0* -- CA 8.3* -- -- 8.0* ALKPHOS -- -- 38* -- TBILI -- -- 0.3 -- AST -- -- 77* -- ALT -- -- 11* -- PTSEC -- 11.6 -- -- APTT -- 31.0 -- -- INR -- 1.13 -- -- MG -- -- -- 2.9* ABG: Recent Labs 07/07/19 0855 PH 7.382 PO2 101.0 PCO2 36.8 CXR - atelectasis, elevation of L diaphragm, possible effusions CT brain - no acute findings VBG, ammonia, TFTs, unremarkable Assessment/Plan IMPRESSION: Post operative hypoxia on NC 1. CAD, CABG x 2 2. Aortic stenosis s/p AVR 3. Prolonged QT 4. LBBB, intermittent tachycardia (PAF) 5. HTN 6. PAF 7. Recent bowel obstruction 8. 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 Chronic elevated LEFT diaphragm 10. Thrombocytopenia 11. Hematuria improved 12. anemia, related to surgery and hematuria s/p transfusion 13. MAURO - improved Cr 14. Acute encephalopathy concerning for acute intracranial process 15. Isolated low T3 16. Microvascular disease MMP PLAN: Wean oxygen as able IS encouraged Mobilize as able Discussed with staff/patient SIGNATURE: Marlon Dubon Jr, MD PATIENT NAME: Elias Shah DATE: July 08, 2019 TIME: 9:56 AM Normal [facility] PROGRESS HNO ID: [id number] Author: Jim Castro DO Service: Cardiac Surgery Author Type: Resident Type: Progress Notes Filed: 07/08/2019 9:52 AM Note Text: Attestation signed by Wayne Rivers at 07/09/2019 12:13 PM Attending Note I evaluated the patient and personally participated in the simmons components. I agree with the resident's findings and plan as documented and have discussed the case and management of the patient's care with the resident. Stable. Improved mental status. Overall, c/w post op/ICU/narcotic induced delirium; CVA much less likely. Will hold on MRI Hematuria: keep farley, management per AF: rate better controlled. No anticoagulation due to hematuria, recurrent; has LORENE excluded Mobilize Diurese Signature: Wayne Rivers MD Date: 07/09/2019 Time: 12:12 PM CARDIOTHORACIC SURGERY POSTOP PROGRESS NOTE SERVICE DATE: 07/08/2019 Subjective S/P SURGERY: Procedure(s) (LRB): CORONARY ARTERY BYPASS GRAFT (N/A) AORTIC VALVE REPAIR (N/A) LIGATION OF ATRIAL APPENDAGE (N/A) DATE OF SURGERY: 07/04/2019 POSTOP DAY #4 LOS: 4 INTERVAL EVENTS / PERTINENT ROS: More alert and oriented this AM. Asking for some swabs to keep his mouth wet. Remains in Afib but rate is well controlled. Persisting chest pain. DIET NPO per GAS BOOSTER ENGINEER. Objective Admission Weight: 90.7 kg (200 lb) BP 164/63 Pulse 90 Temp 36.3 ?C (97.3 ?F) (Temporal) Resp 15 Ht 182.9 cm (6') Wt 100.7 kg (222 lb 0.1 oz) SpO2 95% BMI 30.11 kg/m? Body surface area is 2.26 meters squared. Min/Max/Average Temperature AND Blood Pressure: Temp (24hrs), Av.9 ?C (98.5 ?F), Min:36.1 ?C (97 ?F), Max:38.3 ?C (100.9 ?F) Systolic (24hrs), Av , Min:152 , Max:152 Diastolic (24hrs), Av, Min:106, Max:106 Intake/Output Summary (Last 24 hours) at 07/08/2019 0614 Last data filed at 07/08/2019 0500 Gross per 24 hour Intake 1010 ml Output 970 ml Net 40 ml TELEMETRY: Atrial fibrillation PHYSICAL EXAM: General: Well developed and well nourished appearance. No acute distress. Skin: Pale. No rash on chest, arms or legs. Warm, dry. Head/Eyes: Sclera clear, normal conjunctiva. EOMI. Mouth/Pharynx: Teeth: Fair dentition. No lesions. Neck: No JVD. Supple. Lungs: Unabored breathing on 95% SpO2 on 4 L NC. Chest tube sites covered with occlusive dressing Heart: AV pacing leads off, Atrial fibrillation on telemetry. Wearing cardiac vest Peripheral Vascular/Arteries: Carotid pulse irregular without bruit. No abdominal bruits. No femoral bruits or hematoma. Abdomen: Soft abdomen, nontender, nondistended without mass. No hepatosplenomegaly. Normal bowel sounds. Musculoskeletal: No kyphoscoliosis. No joint deformities. Strength equal and symetric bilateral upper and lower extremeties Extremities: No clubbing or cyanosis. No edema. Warm digits. Neurologic/Psychiatri c: Oriented to person, place, time. Normal affect. No gross focal neurologic deficits. Lines, Drains, and Airways Line Arterial Line 07/04/19 Arterial Line Left Radial 4 days Introducer 07/04/19 Right Neck 4 days Peripheral 07/04/19 Assessment Short Right Hand 18 Gauge 4 days Drain Indwelling Urinary Catheter 07/04/19 Assessment Temperature Monitoring 24 Fr 4 days DATA: Diagnostic tests reviewed for today's visit: Significant Lab Results: CBC, Platelets, Fibrinogen Recent Labs 07/08/19 0505 07/07/19 1700 07/07/19 1105 07/07/19 0455 07/06/19 1648 07/06/19 0512 RBC 2.59* 2.13* -- 2.37* -- 2.34* WBC 9.51* 12.55* -- 10.53* -- 11.89* HB 7.8* 6.5* -- 7.3* -- 7.2* HCT 24.4* 20.0* -- 22.6* -- 21.7* PLT 104* 94* -- 93* -- 94* INR -- 1.13 -- -- -- -- APTT -- 31.0 -- -- -- -- NA 142 -- -- 142 140 140 K 3.7 -- -- 4.0 4.3 4.0 CHLOR 112* -- -- 112* 111* 111* CO2 26 -- -- 23 22 23 BUN 43* -- -- 36* 33* 26* CREAT 1.58* -- -- 1.71* 1.71* 1.33* GLUC 113* -- -- 123* 131* 131* CA 8.3* -- -- 8.0* 8.0* 7.9* MG -- -- -- 2.9* -- 2.3 TPROT -- -- 5.8* -- -- -- TBILI -- -- 0.3 -- -- -- ALKPHOS -- -- 38* -- -- -- ALT -- -- 11* -- -- -- AST -- -- 77* -- -- -- ANION 8 -- -- 11 11 10 Recent Labs 07/07/19 0855 PH 7.382 PCO2 36.8 PO2 101.0 BE -2.8 Assessment/Plan Active Problems: Postoperative Day 4 status post two vessel cardiac bypass HARRINGTON> LAD, Vein>ramus, Aortic valve replacement 23mm St Cristhian Trifecta Bioprosthetic Valve, Exclusion of Left atrial appendage, endoscopic vein harvest - DIET NPO - nitro/ashanti PRN. Both off this AM - pain/nausea control. Change morphine to fentanyl. Add ofirimev as pt is unable to tolerate PO currently - ASA 162, statin - Albumin PRN for hypotension, 62.5g given postoperatively - Vanessa wraps to graft site LLE - PT/OT, mobilize, cardiac rehab - postoperative Echo 07/08 Acute encephalopathy - CT head with microvascular changes but no CVA - EEG pending, MRI cancelled as pt is clinically improving and has metallic foreign object in extracranial left temporal region - Appreciate neurology recommendations, check Vit D and B12 - GAS BOOSTER ENGINEER: NPO alternate means of nutrition. Continued reassessments Atrial fibrillation with rapid ventricular response - Pacing leads off - improved this AM - metoprolol, amiodarone drip - holdig anticoagulation 2/2 bleeding risk Postoperative respiratory insufficiency -aggressive pulmonary toilet Acute on chronic blood loss anemia - Transfuse Hb>7. +2U PRBCs 07/05 and +1 U PRBCs 07/07 Stable this AM. - Iron, folate Vit C Thrombocytopenia - Transfused one unit Platelets 07/05. Monitor for bleeding events. Hypofibrinogenemia - improved, likely due to hemodilution and consumption of clotting factors. Continue to monitor - Received 1U cryo intraoperatively 07/04 Leukocytosis - expected postoperatively, improved, finished postoperative antibiotics Observe for signs of infection: redness, warmth, increased swelling and pain with joint movement, fever, chills, sweats. Postoperative Hematuria - improving. appreciate urology consult, stop CBI and maintain to straight drain. Irrigate PRN, suppositories PRN for bladder spasms, flomax, void trial once out of ICU Oliguria, MAURO - farley, strict I/Os, - Lasix 20mg x1 dose given 07/07, repeat today - improved this AM, continue to monitor GI PPx -Protonix DVT PPx - SCDs, holding LVX Tests/Labs Ordered: 1. Echo SIGNATURE: Jim Castro DO PATIENT NAME: Elias Sahh DATE: July 08, 2019 TIME: 6:14 AM PAGER/CONTACT #: [phone] Normal [facility] THERAPY NTon 07-08-2019 THERAPY NT HNO ID: [id number] Author: Daria (Ccc-Pipe Or Steam Fitter Furnace Installer) Garrick [facility]/GAS BOOSTER ENGINEER Service: Speech/Swallow Author Type: Speech Language Pathologist Type: Therapy (PT/OT/Speech/Resp) Filed: 07/08/2019 3:14 PM Note Text: Speech Therapy Treatment SERVICE DATE: 07/08/2019 SERVICE TIME: 3168 to 1504 ROOM: [id number] Nursing Recommendations: See swallow guide posted in patients room;Reinforce use of swallowing strategies Diet Recommendations: Regular Consistency; Thin Liquids IDDSI Level 0 Swallowing Precautions Recommendations: Alert (patient should be fully alert for P.O. Intake); Feed / Eat at a slow rate; Sit upright 90 degrees for all PO; Supervision/Assistanc e for meals.; Small Bite/Sip Instrumental Swallow Assessment Recommendations: Modified Barium Swallow Study (MBSS) Results and Recommendations Discussed With: Patient;Nurse Recommended Discharge Disposition: Subacute/SNF Justification For Post Acute Needs: Willing to participate;May not tolerate higher intensity programing;Need for assistance may exceed support available IMPRESSION: Patient demonstrates oral and supected pharyngeal dysphagia which is negatively impacting his/her ability to effectively maintain adequate nutrition and hydration and/or airway safety. Rehabilitation Precautions: Aspiration Precautions;Dysphagia ;Cognitive Linguistics Deficits;NPO Precaution/Activity Restriction Comments: chest tube, continuous bladder irrigation ASSESSMENT: Tolerated Full Session -Patient alert, up in bed on GAS BOOSTER ENGINEER arrival, agreeable to therapy -Able to feed self with set up assist -Mastication time increased for solids -Trace to minimal oral residuals post swallow, able to clear with GAS BOOSTER ENGINEER facilitated liquid wash -Laryngeal movement detected upon palpation of swallow -Inconsistent, delayed cough with thin liquid trials - + cough post 3oz water challenge -Recommend diet and strategies as above -Recommend Modified Barium Swallow to further assess oropharyngeal swallow function -Patient requires continued skilled Speech Therapy for dysphagia Goals for Plan of Care: Swallow Goals: Patient will participate in reassessment at the bedside to determine po readiness and/or need for instrumentation as able and appropriate See above 07/08/19 New Goals 07/08/19 Patient will tolerate Regular Consistency diet consistency while utilizing compensatory/swallowi ng strategies given minimal cues in 90% of trials so that the patient will minimize the signs/symptoms of dysphagia. Patient will tolerate Thin Liquids IDDSI Level 0 consistency while utilizing compensatory/swallowi ng strategies given minimal cues in 90% of trials so that the patient will minimize the signs/symptoms of dysphagia. Patient, Caregiver, Family will demonstrate adequate return of knowledge of all compensatory strategies/instructio n to effectively assist the patient in immediate safety with oral intake and swallowing. Patient will participate in a Modified Barium Swallow Study (MBS) to thoroughly evaluate the oral and pharyngeal phase of the swallow, which cannot be substantiated through a clinical swallowing evaluation only. Through further diagnostic testing a definitive diagnosis/identificat ion of the patient's current swallowing function and recommended treatment plan can be established. Patient /Caregiver Goals: Eat/Drink Without Restrictions Progress Toward Goals: Progressing as expected Speech Rehab Potential: Fair PLAN: Treatment Frequency (times per week): 3 Current admission Treatment Interventions: Dysphagia Management Plan of Care Developed with: Patient TREATMENT INTERVENTIONS: Therapy Diagnosis: Dysphagia, oropharyngeal phase Interventions Provided: Dysphagia Therapy (75380) $ Dysphagia Therapy (61031) Billed Units: 1 unit Skilled Interventions: Provided education related to a typical swallowing mechanism in a compare and contrast manner compared to this patient's current skill set. , Educated and advised patient / caregiver on texture and liquid consistency recommendations., Instructed patient / caregiver on recommended compensatory strategies to maximize safety with oral intake while maintaining nutrition, hydration and medication stability. Reassessed swallow ability with various liquid and food textures to determine if safe for current food/drink textures versus at risk for aspiration. Total Treatment Time (minutes): 16 SUBJECTIVE: Current Hospital Course: Chart reviewed; Chest xray IMPRESSION: Elevated left hemidiaphragm. Bibasilar pleuroparenchymal opacities suggesting pleural effusions with associated atelectasis. Reason for Speech Therapy Consult: Concern for dysphagia Relevant Past Medical History: Post polio syndrome, MARUO, afib, CAD, HTN, hyperlipidemia Patient Report: I feel better Home Environment Prior Functional Level: Unable to Assess Assistance Available: Unable to determine at this time Prior Swallowing Function/Diet Textures: Unable to determine at this time Please see discipline specific clinical documentation flowsheet for complete details for this therapy evaluation/treatment. SIGNATURE: Daria Mccauley CCC-GAS BOOSTER ENGINEER PATIENT NAME: Elias Shah DATE: July 08, 2019 TIME: 3:09 PM [facility] CONSULTon 07-07-2019 CONSULT HNO ID: [id number] Author: Saeed Philip (Pa) Service: Neurology ICU Author Type: Physician Cork Pressing Machine Operator Type: Consults Filed: 07/07/2019 9:18 PM Note Text: Attestation signed by Woodrow Munoz at 07/09/2019 10:47 AM Attending Note I personally saw and examined the patient. I reviewed the APPs note. I agree with the DOREEN's assessment and plan unless otherwise noted. Signature: Woodrow Munoz MD Date: 07/09/2019 Time: 10:46 AM NSICU CONSULT SERVICE DATE: 07/07/2019 SERVICE TIME: 8:38 PM Team Requesting Consult: CVICU Current Attending Provider: Wayne Rivers Neurology was asked by the CVICU team to evaluate Elias Shah, a 79 year old male for a chief complaint of altered mental status, global weakness. Our recommendations of care will be communicated by shared medical record. Reason for Evaluation: AMS, global weakness Subjective HPI: This is Mr. Elias Shah a 79 M with hx of HTN, HLD, CAD s/p CABG x 2, aortic stenosis s/p TAVR, paroxysmal Afib, and coagulopathy w/ thrombocytopenia who presented to [facility] for CABG and AVR. Patient is now s/p CABG and s/p TAVR on 07/04/19. Patient does have Afib and there was debate over starting heparin gtt today; however, it was not started due to gross hematuria. Neurology was consulted for acute encephalopathy with global weakness. Per nurse, patient has been experiencing altered mental status over the past 24 hours. No focal neurologic findings. Patient is confused and unable to provide any additional history for me at this time. Current Facility-Administered Medications Medication Dose Route Frequency - tamsulosin ER 0.4 mg cap(s) (FLOMAX) 0.4 mg ORAL DAILY - aspirin 162 mg chewable tab(s) 162 mg ORAL DAILY - potassium chloride iv piggyback 20 mEq/100 mL 20 mEq INTRAVENOUS PRN - magnesium sulfate in water 2 g in sterile water 50 ml 2 g INTRAVENOUS PRN(NO DISPENSE) - acetaminophen 650 mg tab(s) (TYLENOL) 650 mg ORAL q 6 H PRN - albuterol 2.5 mg /3 mL (0.083 %) 2.5 mg (PROVENTIL) 2.5 mg INHALATION q 2 H PRN - atorvastatin 40 mg tab(s) (LIPITOR) 40 mg ORAL AT BEDTIME - ondansetron (PF) 4 mg injection (ZOFRAN) 4 mg INTRAVENOUS q 6 H PRN - belladonna-opium 16.2-60 mg 1 Suppository suppository (B and O 16-A) 1 Suppository RECTAL BID PRN - senna-docusate 8.6-50 mg 1 tablet (SENNA-S) 1 tablet ORAL BID - polyethylene glycol 3350 17 g packet (MIRALAX, GLYCOLAX) 17 g ORAL DAILY - bisacodyl 10 mg suppository (DULCOLAX) 10 mg RECTAL DAILY PRN - pantoprazole DR 40 mg tab(s) (PROTONIX) 40 mg ORAL DAILY (6 AM) - PHENYLephrine iv infusion 10 mg in NaCl 0.9% 250 mL (ASHANTI-SYNEPHRINE) 20-200 mcg/min INTRAVENOUS CONTINUOUS - ferrous sulfate 325 mg tab(s) 325 mg ORAL DAILY - ascorbic acid (vitamin C) 500 mg tab(s) (VITAMIN C) 500 mg ORAL DAILY - folic acid 1 mg tab(s) 1 mg ORAL DAILY - amiodarone 360 mg in D5W 200 mL (NEXTERONE) 0.5 mg/min INTRAVENOUS CONTINUOUS - nitroglycerin 100 mg in D5W 250 mL 5-200 mcg/min INTRAVENOUS CONTINUOUS - metoprolol 5 mg injection (LOPRESSOR) 5 mg INTRAVENOUS q 4 H PAST MEDICAL HISTORY Diagnosis Date - Acute kidney injury (HCC) - Acute metabolic encephalopathy - Anemia - Aortic stenosis - Atrial fibrillation (HCC) - Bowel obstruction (HCC) - Coronary artery disease - Hyperlipidemia - Hypertension - Left bundle branch block - Mitral valve annular calcification - Prolonged QT interval - Vitamin D deficiency PAST SURGICAL HISTORY Procedure Laterality Date - REPAIR UMBILICAL HERNIA 12/04/2018 after bowel perforation done at [facility] Dr. Young Social History Socioeconomic History Marital status: Spouse name: Not on file Number of children: Not on file Years of education: Not on file Highest education level: Not on file Occupational History Not on file Social Needs Financial resource strain: Not on file Food insecurity: Worry: Not on file Inability: Not on file Transportation needs: Medical: Not on file Non-medical: Not on file Tobacco Use Smoking status: Former Smoker Packs/day: 1.00 Years: 5.00 Pack years: 5 Quit date: 11/23/1954 Years since quittin.6 Smokeless tobacco: Never Used Substance and Sexual Activity Alcohol use: Yes Comment: social Drug use: Never Sexual activity: Not on file Lifestyle Physical activity: Days per week: Not on file Minutes per session: Not on file Stress: Not on file Relationships Social connections: Talks on phone: Not on file Gets together: Not on file Attends alevism service: Not on file Active member of club or organization: Not on file Attends meetings of clubs or organizations: Not on file Relationship status: Not on file Intimate partner violence: Fear of current or ex partner: Not on file Emotionally abused: Not on file Physically abused: Not on file Forced sexual activity: Not on file Other Topics Concerns: Service: No Blood Transfusions: Yes Caffeine Concern: No Occupational Exposure: Not Asked Hobby Hazards: Not Asked Sleep Concern: No Stress Concern: No Weight Concern: Not Asked Special Diet: No no restrictions Back Care: Not Asked Exercise: No sedentary Bike Helmet: Not Asked Seat Belt: Yes Self-Exams: Not Asked Social History Narrative Not on file FAMILY HISTORY Problem Relation Age of Onset - Osteoporosis Mother - Heart Mother - Cancer Father ALLERGIES No Known Allergies REVIEW OF SYSTEMS: Unable to obtain due to AMS Objective PHYSICAL EXAM: Head: Normocephalic, no masses, lesions, tenderness or abnormalities Lungs: Scattered rhonchi and rales Heart: irregularly irregular Abdomen: Abdomen soft, non-tender. Bowel sounds normal. No masses, organomegaly Extremities: No deformities, edema, skin discoloration, clubbing or cyanosis. Good capillary refill. Musculoskeletal: No joint swelling, deformity, or tenderness Peripheral Pulses: Normal Neurological: ? Mental Status: Alert, oriented to to person only. Follows most simple commands Cranial Nerves: CNII: Visual acuity normal CNIII, IV, : Pupils equal, round and reactive to light, full extraoccular movements, without nystagmus CN V: Facial sensation intact bilaterally to fine touch CN VII: Facial muscles symmetric and strong, No noted facial droop CN VIII: Hears finger rub well bilaterally CN IX: Gag Reflex Not examined CN X: Palate elevates symmetrically CN XI: Full strength shoulder shrug bilaterally CN XII: Tongue protrusion full and midline ? Motor: 3/5 to BLUE, 2/5 to BLLE. Difficulty performing formal strength testing due to lack of cooperation from patient ? Sensation: Intact to light touch. ? Coordination: difficulty following command but no dysmetria noted with patient's attempts at FTN LABS/DATA: WBC (thou/cmm) Date Value 07/07/2019 12.55 07/07/2019 10.53 07/06/2019 11.89 07/05/2019 8.65 07/04/2019 9.78 RBC (mil/cmm) Date Value 07/07/2019 2.13 07/07/2019 2.37 07/06/2019 2.34 07/05/2019 2.12 07/04/2019 2.12 Platelet Count (thou/cmm) Date Value 07/07/2019 94 07/07/2019 93 07/06/2019 94 07/05/2019 110 07/04/2019 89 BUN (mg/dL) Date Value 07/07/2019 36 07/06/2019 33 07/06/2019 26 07/05/2019 16 07/04/2019 13 Creatinine (mg/dL) Date Value 07/07/2019 1.71 07/06/2019 1.71 07/06/2019 1.33 07/05/2019 1.11 07/04/2019 1.08 Lab Results Component Value Date NEUTP 54.4 05/20/2019 ABSNEUT 2.79 05/20/2019 LYMPHP 29.1 05/20/2019 ABSLYMPH 1.50 05/20/2019 ABSMONO 0.78 05/20/2019 EODINP 1.2 05/20/2019 ABSEOSIN 0.06 05/20/2019 BASOP 0.2 05/20/2019 ABSBASO <0.03 05/20/2019 Lab Results Component Value Date PLT 94 07/07/2019 HB 6.5 07/07/2019 HB 12.6 05/20/2019 HCT 20.0 07/07/2019 ALB 3.0 07/07/2019 CA 8.0 07/07/2019 TBILI 0.3 07/07/2019 ALKPHOS 38 07/07/2019 AST 77 07/07/2019 GLUC 123 07/07/2019 BUN 36 07/07/2019 NA 142 07/07/2019 K 4.0 07/07/2019 CHLOR 112 07/07/2019 CO2 23 07/07/2019 ANION 11 07/07/2019 ALT 11 07/07/2019 No results found for: WSR, CRP, IGG No results found for: USCRP No results found for: CHOL No results found for: LDL No results found for: HDL No results found for: TG Hemoglobin A1C (%) Date Value 06/27/2019 5.6 DATA: Diagnostic tests reviewed for today's visit: Most recent labs and imaging results. Impression/Recommenda tions Problem List Noted Noted By Resolved Resolved By Aortic stenosis 07/04/2019 Jim (Res) DO Gloria No MAURO (acute kidney injury) (HCC) 05/12/2019 Helena Mobianca No Impaired cognition 05/12/2019 Helena Mobianca No Anemia, unspecified 02/11/2019 Helena Mouck No Essential hypertension 02/11/2019 Helena Mobianca No Abnormal electrocardiogram (ECG) (EKG) 02/01/2019 Helena Mobianca No Atrial fibrillation with rapid ventricular response (HCC) 02/01/2019 Helena Mobianca No Hyperlipidemia 02/01/2019 Helena Mouck No Aortic valve stenosis 12/06/2018 Helena Mobianca No Acute metabolic encephalopathy 12/05/2018 Helena Mobianca No Vitamin D deficiency 12/05/2018 Helena Mouck No Paroxysmal atrial fibrillation (HCC) 12/05/2018 Helena Mouck No LBBB (left bundle branch block) 12/05/2018 Helena Mobianca No Declining functional status 12/05/2018 Helena Mobianca No Small bowel obstruction (HCC) 12/04/2018 Helena Mobianca No Incarcerated umbilical hernia 12/04/2018 Helena Mobianca No 79 M with significant medical comorbidities listed above who is s/p CABG and s/p TAVR this admission. Neurology was consulted for AMS and global weakness. No focal neurologic findings. CT brain was unremarkable. Recent carotid U/S imaging done in March 2019 was unremarkable. Ammonia minimally elevated. Free T3 low, TSH minimally elevated. Can check Vitamin B12 and Vitamin D levels. Recommend MRI brain and EEG. Will f/u on results. SIGNATURE: Saeed Philip PA-C PATIENT NAME: Elias Shah DATE: July 07, 2019 TIME: 8:38 PM PAGER/CONTACT #: [id number] [facility] NURSING PROGon 07-07-2019 NURSING PROG HNO ID: [id number] Author: Suni (Rn) AGUSTO Maguire Service: ? Author Type: Registered Nurse Type: Nursing Progress Note Filed: 07/07/2019 5:29 AM Note Text: Pt having arrhythmias a fib rvr at a variable rate up to the 140's with several runs of Vtach on monitor, pt remains conscious with good blood pressures, Asymptomatic. Labs sent and spoke with Dr Rivers in regards to starting the Amio we were holding and addressing his increasing blood pressures. Pt had magnesium replacements yesterday for low levels, rechecking with AM labs. Pt has been complaining of pain in the area where chest tubes have been removed since around 0330 and medications were given in attempts to resolve pain and lower increasing BP. Pt resting more comfortably at this time. Pt has had low urine output for shift will pass on to day turn for updates while rounds in AM are being performed. Several attempts to encourage and educate on coughing and deep breathing, pt reluctant to follow instructions and has been holding in his coughing fits when they occur. Will continue to monitor, educate and encourage [facility] NURSING PROG HNO ID: [id number] Author: Suni (Rn) AGUSTO Maguire Service: ? Author Type: Registered Nurse Type: Nursing Progress Note Filed: 07/06/2019 10:55 PM Note Text: Attempt to ambulate pt prior to bed, pt weight bearing and able to take side steps to bed. Pt slow to respond to commands and not able to maintain an upright position enough for safe ambulation. Pt has been maintaining BP with Afib and Amio has not needed to be started. Pt displays generalized weakness to all extremities upon assessments for this nurse. Pt denies any numbness or tingling and has symmetrical smile, eyebrow movement, no tongue deviation and clear voice when answering questions. Pt displaying difficulty with concentration by evidence of having to repeat questioning sometimes several times before receiving and answer. Pupils remain equal and reactive, will continue to monitor [facility] PLAN OF CAREon 07-07-2019 PLAN OF CARE HNO ID: [id number] Author: Angely Mora (Pharmacist) Service: Pharmacy Author Type: Pharmacist Type: Plan of Care Filed: 07/11/2019 3:04 PM Note Text: MEDICATION HISTORY Patient Name:.Elias Shah : 1940 Source of history:Pharmacy records: [facility] (electronic and fax) and Patient: recognized most medications, could not necessarily remember the name of every single medication Medication Nonadherence Identified: No barriers noted The above information represents the best possible medication history: Yes Additional comments: [id number] Medication List Adjustments: Medication Regimen Changes: Carvedilol changed to BID (based on pharmacy records) Short-Term Medications: Ondansetron recently dispensed for 15 tablets 05/02; and 1 ODT tablet 05/02 Metoprolol recently dispensed 2 tablets (take 2 hours before scan and bring other tablet to scan) 04/27 Mupirocin recently dispensed 06/27 Patient is a 30 day readmission: No Patient Interested in Bedside Delivery: Yes Time Spent Reviewing Patient's Medications: 45 minutes MEDICATION RECONCILIATION -Angely Mora, Pharmacist; July 07, 2019 2:31 PM Reconciliation: Yes All DOOR REPAIRER BUS medications addressed by LIP Additional comments: N/A Allergies: ALLERGIES No Known Allergies Preferred Pharmacy: [facility] Current [facility]OR REPAIRER [facility] Medications: Prior to Admission medications as of 07/04/19 0733 Medication Sig Last Dose Taking tamsulosin ER (FLOMAX) 0.4 mg cap Take 0.4 mg by mouth once daily. 07/03/2019 at Unknown time Yes aspirin 81 mg chewable tablet Take 324 mg by mouth one time only. 07/04/2019 at 0300 Yes Lactobacillus acidophilus/lact (LACTOBACILLUS ACIDOPH-LACTASE ORAL) Take by mouth twice daily. 07/03/2019 at Unknown time Yes amLODIPine (NORVASC) 5 mg tablet Take 5 mg by mouth once daily. 07/03/2019 at Unknown time Yes carvedilol (COREG) 25 mg tablet Take 25 mg by mouth twice daily with meals. 07/04/2019 at 0300 Yes fluticasone (FLONASE ALLERGY RELIEF) 50 mcg/actuation nasal spray Use 1 [place] in each nostril once daily. 07/03/2019 at Unknown time Yes Cholecalciferol, Vitamin D3, 5,000 unit cap Take 5,000 Units by mouth once daily. 07/03/2019 at Unknown time Yes ferrous sulfate 325 mg (65 mg iron) tablet Take 325 mg by mouth daily with breakfast. 07/03/2019 at Unknown time Yes rosuvastatin (CRESTOR) 5 mg tablet Take 5 mg by mouth once daily. 07/03/2019 at Unknown time Yes magnesium, aluminum hydroxide (MYLANTA ORAL) Take by mouth. as needed for indigestion Unknown at Unknown time ondansetron (ZOFRAN) 4 mg tablet Take 4 mg by mouth every 8 hours as needed. Unknown at Unknown time Acetaminophen 500 mg cap Take 2 capsules by mouth twice daily as needed. Unknown at Unknown time loperamide (IMODIUM) 2 mg cap(s) Take 2 mg by mouth once daily. Unknown at Unknown time Risa Garcia (Potash Flaker) July 07, 2019 1:22 PM [facility] PROGRESSon 07-07-2019 PROGRESS HNO ID: [id number] Author: Marlon Millan (Pa) Service: Cardiovascular Surgery Author Type: Physician [employer] Pressing Machine Operator Type: Progress Notes Filed: 07/07/2019 4:15 PM Note Text: CARDIOTHORACIC SURGERY POSTOP PROGRESS NOTE SERVICE DATE: 07/07/2019 SERVICE TIME: 11:03 AM Subjective S/P SURGERY: Procedure(s) (LRB): CORONARY ARTERY BYPASS GRAFT (N/A) AORTIC VALVE REPAIR (N/A) LIGATION OF ATRIAL APPENDAGE (N/A) DATE OF SURGERY: 07/04/2019 POSTOP DAY #3 LOS: 3 INTERVAL EVENTS / PERTINENT ROS: Patient seen and examined. Per RN report runs of NSVT overnight. No tele alarms that demonstrate NSVT. There has been a gradual mental status record changer assembler the last 12H. Afib RVR continued depsite attempting higher beta blockade. Amiodarone gtt started this AM. Nitro gtt also started for BP control. Objective Admission Weight: 90.7 kg (200 lb) BP 172/79 Pulse 100 Temp (!) 38.3 ?C (100.9 ?F) (Temporal) Resp 19 Ht 182.9 cm (6') Wt 100.7 kg (222 lb 0.1 oz) SpO2 99% BMI 30.11 kg/m? Body surface area is 2.26 meters squared. Min/Max/Average Temperature AND Blood Pressure: Temp (24hrs), Av.1 ?C (98.8 ?F), Min:36.2 ?C (97.2 ?F), Max:38.3 ?C (100.9 ?F) Systolic (24hrs), Av , Min:148 , Max:179 Diastolic (24hrs), Av, Min:62, Max:79 Intake/Output Summary (Last 24 hours) at 07/07/2019 1103 Last data filed at 07/07/2019 1000 Gross per 24 hour Intake 960 ml Output 585 ml Net 375 ml TELEMETRY: atrial fibrillation RVR PHYSICAL EXAM: General Appearance: Pt in bed with blank stare on face. Skin: Midsternal incision dry AND intact-mild resolving ecchymosis. No drainage or surrounding erythema. SVG incisions dry AND intact. Head/Eyes: PERRLA and sclera noniceteric Neck: RIJ intact Lungs: Coarse rhonchi with diminished BS at left base. Moist cough. Heart: Tachy/ irregular with temproray pacing wires inplace Peripheral Vascular/Arteries: dorsalis pedis 2+ and radial 2+ Abdomen: soft, non-tender and bowel sounds present Genitourinary: Farley intact, urine color is tea colored Neurologic/Psychiatri c: Pateint is oriented to name and place. Expressive aphasia when asked year. Global weakness in upper and lower extremities. Sensation reduced bilaterally in upper extremities. Speech slurred. Extremities: 2+ LE, trace UE Lines, Drains, and Airways Line Arterial Line 07/04/19 Arterial Line Left Radial 3 days Introducer 07/04/19 Right Neck 3 days Peripheral 07/04/19 Assessment Short Right Hand 18 Gauge 3 days Drain Indwelling Urinary Catheter 07/04/19 Assessment Temperature Monitoring 24 Fr 3 days DATA: Diagnostic tests reviewed for today's visit: CXR: Persistent elevated left tran diaphragm. Increasing density in LLL. Increasing gaseous distension noted in the descending colon. CT brain: No obvious process, but official report pending. Recent Labs 07/07/19 0455 07/06/19 1648 07/06/19 0512 07/05/19 0854 07/05/19 0232 07/04/19 1410 RBC 2.37* -- 2.34* -- 2.12* < > -- WBC 10.53* -- 11.89* -- 8.65 < > -- HB 7.3* -- 7.2* 7.1* 6.4* < > -- HCT 22.6* -- 21.7* 21.6* 19.6* < > -- PLT 93* -- 94* -- 110* < > -- INR -- -- -- -- 1.16 -- 1.27 APTT -- -- -- -- 29.0 -- 30.5 NA 142 140 140 -- 144 -- 139 K 4.0 4.3 4.0 -- 4.0 -- 3.9 CHLOR 112* 111* 111* -- 114* -- 109* CO2 23 22 23 -- 23 -- 24 BUN 36* 33* 26* -- 16 -- 13 CREAT 1.71* 1.71* 1.33* -- 1.11 -- 1.08 GLUC 123* 131* 131* -- 125* -- 90 CA 8.0* 8.0* 7.9* -- 7.4* -- 7.7* MG 2.9* -- 2.3 -- 2.3 -- 2.8* ANION 11 11 10 -- 11 -- 10 < > = values in this interval not displayed. Recent Labs 07/07/19 0855 07/04/19 1930 07/04/19 1410 07/04/19 1239 07/04/19 1200 07/04/19 1128 PH 7.382 7.346* 7.410 7.401 7.407 7.406 PCO2 36.8 41.4 35.6 -- -- -- PO2 101.0 140.0* 127.0* 470.0* 345.0* 372.0* BE -2.8 -2.8 -1.7 -- -- -- HCO3 -- -- -- 27.2* 26.3* 26.3* Assessment/Plan Acute encephalopathy -Possible sources include metabolic vs cardioembolic vs infectious -Will consider blood cultures and ABX if CT negative -OAC if no intracranial process -Awaiting further labs (NH3, TSH, liver) -ABG unremarkable -Glucose normal -DC narcotics CAD -s/p CABG x?2 ([place]?and reversed SVG?to the ?ramus intermedius branch) -POD#3 -Medical management with ASA?162, atorvastatin?40, Metoprolol 5 IV Q6 -Currently on Nitro gtt -Post operative vest support -IS/ ambulation/ PT -Cardiac rehab? ? Severe -s/p Aortic valve replacement with?[address] [place] [place] Trifecta -Medical management with ASA 162 -Repeat echo on 07/08 ? Paroxysmal atrial fibrillation/ Afib RVR -s/p?exclusion of left atrial appendage with a 35 mm AtriCure clip -Currently on rhythm/ rate control with IV amio AND metoprolol -CHADS2: 2 -CHADS2 VASC: 4 -If CT normal will anticoagulate with heparin gtt NSVT -Improving with BB/ amio MAURO -Likely from ATN -Now hypertensive requiring nitro -Follow renal function -Consult nephrology if worsening tomorrow Dysphagia -NPO -ST eval Coagulopathy -s/p 1 unit cryoprecipitate intraoperatively -s/p 2 units PRBC 07/05 with suboptimal response -Resolved ? Thrombocytopenia -s/p 10 pack platelets -Monitor -Defer Lovenox again today ? Hematuria -Management per urology-appreciated ? Acute blood loss anemia -2/2 OR and hematuria -Start Fe, Folate, Vit C today -No indication for transfusion at this time -Monitor with CBC in AM ? BPH -Flomax ? GI PPX -Protonix ? VTE PPX -SCD ? Diet -Heart healthy -Bowel regimen today Tests/Labs Ordered: 1. CT brain w/o contrast 2. BMP 3. CBC 4. NH3 5. Liver profile 6. ABG 7. BGT 8. TSH Free T3/T4 Discussed with Dr. Rivers and Dr. Dubon. AGUSTO Parker updated with plan. SIGNATURE: Marlon Millan PA-C PATIENT NAME: Elias Shah DATE: July 07, 2019 TIME: 11:03 AM PAGER/CONTACT #: [id number] [phone] [id number] Addendum #1 [id number] 07/07/[address] brain without contrast now read. Findings include: 1. ?Findings as described above consistent with subacute/chronic microvascular disease involving the cerebral hemispheres and cerebellum. 2. ?Mild ex vacuo ventricular dilatation resulting from central atrophy as noted. 3. ?Extracranial metallic foreign body within the right temporal fossa as described above. Exam worse with LUE weakness and abilty to phonate. Will consult Neurology to assist. Attending updated. Will start heparin gtt without bolus. Marlon Millan PA-C [facility] PROGRESS HNO ID: [id number] Author: Marlon Dubon Jr. Service: Critical Care Author Type: Physician Type: Progress Notes Filed: 07/07/2019 12:43 PM Note Text: MICU - PROGRESS NOTE SERVICE DATE: July 07, 2019 Admission Date: 07/04/2019 AGE: [age] year old LOS: 3 days Subjective Cc: acute postoperative respiratory insufficiency Stable pulmonary parameters but less responsive today Follows simple commands but weak and takes repeat questioning for some commands or answers CXR noted Discussed with primary service Objective PROBLEMS: ACTIVE PROBLEM LIST Abnormal Electrocardiogram (Ecg) (Ekg) Anemia, Unspecified Aortic Valve Stenosis Atrial Fibrillation With Rapid Ventricular Response (Hcc) Mauro (Acute Kidney Injury) (Hcc) Acute Metabolic Encephalopathy Vitamin D Deficiency Small Bowel Obstruction (Hcc) Paroxysmal Atrial Fibrillation (Hcc) Lbbb (Left Bundle Branch Block) Incarcerated Umbilical Hernia Declining Functional Status Essential Hypertension Hyperlipidemia Impaired Cognition Aortic Stenosis PAST MEDICAL HISTORY Diagnosis Date - Acute kidney injury (HCC) - Acute metabolic encephalopathy - Anemia - Aortic stenosis - Atrial fibrillation (HCC) - Bowel obstruction (HCC) - Coronary artery disease - Hyperlipidemia - Hypertension - Left bundle branch block - Mitral valve annular calcification - Prolonged QT interval - Vitamin D deficiency PAST SURGICAL HISTORY Procedure Laterality Date - REPAIR UMBILICAL HERNIA 12/04/2018 after bowel perforation done at [facility] Dr. Young Social History Socioeconomic History Marital status: Spouse name: Not on file Number of children: Not on file Years of education: Not on file Highest education level: Not on file Occupational History Not on file Social Needs Financial resource strain: Not on file Food insecurity: Worry: Not on file Inability: Not on file Transportation needs: Medical: Not on file Non-medical: Not on file Tobacco Use Smoking status: Former Smoker Packs/day: 1.00 Years: 5.00 Pack years: 5 Quit date: 11/23/1954 Years since quittin.6 Smokeless tobacco: Never Used Substance and Sexual Activity Alcohol use: Yes Comment: social Drug use: Never Sexual activity: Not on file Lifestyle Physical activity: Days per week: Not on file Minutes per session: Not on file Stress: Not on file Relationships Social connections: Talks on phone: Not on file Gets together: Not on file Attends alevism service: Not on file Active member of club or organization: Not on file Attends meetings of clubs or organizations: Not on file Relationship status: Not on file Intimate partner violence: Fear of current or ex partner: Not on file Emotionally abused: Not on file Physically abused: Not on file Forced sexual activity: Not on file Other Topics Concerns: Service: No Blood Transfusions: Yes Caffeine Concern: No Occupational Exposure: Not Asked Hobby Hazards: Not Asked Sleep Concern: No Stress Concern: No Weight Concern: Not Asked Special Diet: No no restrictions Back Care: Not Asked Exercise: No sedentary Bike Helmet: Not Asked Seat Belt: Yes Self-Exams: Not Asked Social History Narrative Not on file VITAL SIGNS (last 24hrs min/max): Temp Av.9 ?C (96.6 ?F) Min: 35.9 ?C (96.6 ?F) Max: 35.9 ?C (96.6 ?F) Pulse Av Min: 60 Max: 80 Arterial BP 1 Min: 128/65 Max: 149/71 Cuff BP Min: 152/106 Max: 152/106 Pain Level: 0 Vital signs reviewed. BP 172/79 Pulse 101 Temp (Src) 100.9 (Temporal) Resp 19 Ht 6' 0 (1.83m) Wt 222 lb 0.1 oz (100.7kg) SpO2 98% BMI 30.10 kg/(m2). O2 Therapy: Nasal Cannula, Liters: 4 Temp (24hrs), Av.1 ?C (98.8 ?F), Min:36.2 ?C (97.2 ?F), Max:38.3 ?C (100.9 ?F) NET FLUID BALANCE Intake/Output Summary (Last 24 hours) at 07/07/2019 0849 Last data filed at 07/07/2019 0600 Gross per 24 hour Intake 1310 ml Output 605 ml Net 705 ml MEDICATIONS Current Facility-Administered Medications Medication Dose Route Frequency - nitroglycerin 100 mg in D5W 250 mL 5-200 mcg/min INTRAVENOUS CONTINUOUS - PHENYLephrine iv infusion 10 mg in NaCl 0.9% 250 mL (ASHANTI-SYNEPHRINE) 20-200 mcg/min INTRAVENOUS CONTINUOUS - ferrous sulfate 325 mg tab(s) 325 mg ORAL DAILY - ascorbic acid (vitamin C) 500 mg tab(s) (VITAMIN C) 500 mg ORAL DAILY - folic acid 1 mg tab(s) 1 mg ORAL DAILY - amiodarone 360 mg in D5W 200 mL (NEXTERONE) 0.5 mg/min INTRAVENOUS CONTINUOUS - metoprolol tartrate (short acting) 50 mg tab(s) (LOPRESSOR) 50 mg ORAL q 12 H - senna-docusate 8.6-50 mg 1 tablet (SENNA-S) 1 tablet ORAL BID - polyethylene glycol 3350 17 g packet (MIRALAX, GLYCOLAX) 17 g ORAL DAILY - bisacodyl 10 mg suppository (DULCOLAX) 10 mg RECTAL DAILY PRN - pantoprazole DR 40 mg tab(s) (PROTONIX) 40 mg ORAL DAILY (6 AM) - tamsulosin ER 0.4 mg cap(s) (FLOMAX) 0.4 mg ORAL DAILY - aspirin 162 mg chewable tab(s) 162 mg ORAL DAILY - potassium chloride iv piggyback 20 mEq/100 mL 20 mEq INTRAVENOUS PRN - magnesium sulfate in water 2 g in sterile water 50 ml 2 g INTRAVENOUS PRN(NO DISPENSE) - acetaminophen 650 mg tab(s) (TYLENOL) 650 mg ORAL q 6 H PRN - enoxaparin 40 mg injection (LOVENOX) 40 mg SUBCUTANEOUS DAILY - albuterol 2.5 mg /3 mL (0.083 %) 2.5 mg (PROVENTIL) 2.5 mg INHALATION q 2 H PRN - atorvastatin 40 mg tab(s) (LIPITOR) 40 mg ORAL AT BEDTIME - ondansetron (PF) 4 mg injection (ZOFRAN) 4 mg INTRAVENOUS q 6 H PRN - oxyCODONE-acetaminoph en 5-325 mg 1-2 tablet (PERCOCET) 1-2 tablet ORAL q 4 H PRN - morphine 2-4 mg injection 2-4 mg INTRAVENOUS q 1 H PRN - belladonna-opium 16.2-60 mg 1 Suppository suppository (B and O 16-A) 1 Suppository RECTAL BID PRN Lines, Drains, and Airways Line Arterial Line 07/04/19 Arterial Line Left Radial 3 days Introducer 07/04/19 Right Neck 3 days Peripheral 07/04/19 Assessment Short Right Hand 18 Gauge 3 days Drain Indwelling Urinary Catheter 07/04/19 Assessment Temperature Monitoring 24 Fr 3 days PHYSICAL EXAM PERFORMED: General: no acute distress Cardiovascular: Regular rhythm - paced Respiratory: Scattered rales Abdomen: Soft and Nontender Extremities: Edema- No Neurologic: awake and follows Respiratory/Nursing Documentation: O2 Therapy: Nasal Cannula (07/07/19 0758) Invasive Ventilator Mode: Continuous Positive Airway Pressure;Pressure Support Ventilation (07/05/19809) Set Ventilator Respiratory Rate (BPM): 0 (07/05/19426) Total Respiratory Rate (BPM): 15 (07/05/19 0810) Tidal Volume Set (mL): 0 (07/05/19426) Exhaled Tidal Volume (mL): 521 (08/13/19 0810) Minute Volume (L): 7.03 (07/05/19 0810) Peak Inspiratory Pressure (cm H2O): 11 (07/05/19 08) PEEP/CPAP (cm H2O): 5 (07/05/19809) HEMODYNAMIC DATA: Reviewed DATA: Diagnostic tests reviewed for today's visit, films/specimens were personally reviewed by me: Most recent labs and imaging results. LABS: Recent Labs 07/07/19 0455 07/05/19 0232 WBC 10.53* < > 8.65 RBC 2.37* < > 2.12* HB 7.3* < > 6.4* HCT 22.6* < > 19.6* MCV 95.4 < > 92.5 PLT 93* < > 110* GLUC 123* < > 125* BUN 36* < > 16 CREAT 1.71* < > 1.11 NA 142 < > 144 K 4.0 < > 4.0 CHLOR 112* < > 114* CO2 23 < > 23 CA 8.0* < > 7.4* PTSEC -- -- 11.9 APTT -- -- 29.0 INR -- -- 1.16 MG 2.9* < > 2.3 < > = values in this interval not displayed. ABG: Recent Labs 07/07/19 0855 07/04/19 1930 07/04/19 1410 PH 7.382 7.346* 7.410 PO2 101.0 140.0* 127.0* PCO2 36.8 41.4 35.6 CXR - atelectasis/elevation of L diaphragm CT pending VBG, ammonia, TFTs, unremarkable Assessment/Plan IMPRESSION: Post operative hypoxia 1. CAD, CABG x 2 2. Aortic stenosis s/p AVR 3. Prolonged QT 4. LBBB, intermittent tachycardia (PAF) 5. HTN 6. PAF 7. Recent bowel obstruction 8. 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 Chronic elevated LEFT diaphragm 10. Thrombocytopenia 11. Hematuria improved 12. anemia, s/p transfusion 13. MAURO 14. Acute encephalopathy concerning for acute intracranial process MMP CRITICAL CARE PLAN: Wean oxygen as able Follow mental status Neurologic plan discussed with [facility] - see their note Follow hgb NPO and bedrest today Observe in ICU This patient has a high probability of sudden, clinically significant deterioration, which requires the highest level of physician preparedness to intervene urgently. I managed/supervised life or organ supporting interventions that required frequent physician assessment. I devoted my full attention to the direct care of this patient for the amount of time indicated below. Time I spent with family or surrogate(s) is included only if the patient was incapable of providing the necessary information or participating in medical decision making. Time devoted to teaching is not included. Discussed with staff/patient Time spent providing critical care services: 38 minutes excluding procedures. SIGNATURE: Marlon Dubon Jr, MD PATIENT NAME: Elias Shah DATE: July 07, 2019 TIME: 12:42 PM Normal [facility] PROGRESS HNO ID: [id number] Author: Jim Castro DO Service: Cardiac Surgery Author Type: Resident Type: Progress Notes Filed: 07/07/2019 6:39 AM Note Text: Attestation signed by Wayne Rivers at 07/07/2019 10:00 AM Attending Note I evaluated the patient and personally participated in the simmons components. I agree with the resident's findings and plan as documented and have discussed the case and management of the patient's care with the resident. Continued AF with RVR overnight. Beta leyda increased with good effect, with VR of 90+ now. Had hypertension overnight and added IV nitro. No further hematuria; farley management per urology. On exam today he is somnolent but responsive. Follows commands only intermittently. Seems slow to move left UE. Concerned about possible CVA given AF despite exclusion of LORENE. Stat CTto r/o CVA or bleed. If CT negative will anticoagulate. NPO until more responsive. Swallow eval before feeding again. Check ABG. Plan: Signature: Wayne Rivers MD Date: 07/07/2019 Time: 9:55 AM CARDIOTHORACIC SURGERY POSTOP PROGRESS NOTE SERVICE DATE: 07/07/2019 Subjective S/P SURGERY: Procedure(s) (LRB): CORONARY ARTERY BYPASS GRAFT (N/A) AORTIC VALVE REPAIR (N/A) LIGATION OF ATRIAL APPENDAGE (N/A) DATE OF SURGERY: 07/04/2019 POSTOP DAY #3 LOS: 3 INTERVAL EVENTS / PERTINENT ROS: Chest tubes removed yesterday, remains in Afib with RVR and amiodarone was just started. States his pain is improved but has just received morphine. Per nursing when ambulating became confused but could be reoriented after sitting down. Low urine output DIET HEART HEALTHY. Objective Admission Weight: 90.7 kg (200 lb) BP 172/79 Pulse (!) 128 Temp 36.8 ?C (98.2 ?F) (Temporal) Resp 19 Ht 182.9 cm (6') Wt 96.5 kg (212 lb 11.9 oz) SpO2 94% BMI 28.85 kg/m? Body surface area is 2.21 meters squared. Min/Max/Average Temperature AND Blood Pressure: Temp (24hrs), Av.5 ?C (97.7 ?F), Min:36.2 ?C (97.2 ?F), Max:36.8 ?C (98.2 ?F) Systolic (24hrs), Av , Min:152 , Max:152 Diastolic (24hrs), Av, Min:106, Max:106 Intake/Output Summary (Last 24 hours) at 07/07/2019 0627 Last data filed at 07/07/2019 0600 Gross per 24 hour Intake 1310 ml Output 650 ml Net 660 ml TELEMETRY: Afib with RVR PHYSICAL EXAM: General: Well developed and well nourished appearance. Mild distress. Skin: Pale. No rash on chest, arms or legs. Warm, dry. Head/Eyes: Sclera clear, normal conjunctiva. EOMI. Mouth/Pharynx: Teeth: Fair dentition. No lesions. Neck: No JVD. Supple. Lungs: Labored breathing on 2L NC 92%. Chest tube sites covered with occlusive dressing Heart: AV pacing leads off, Atrial fibrillation with RVR and frequent PVCs on telemetry. Wearing cardiac vest Peripheral Vascular/Arteries: Carotid pulse irregular without bruit. No abdominal bruits. No femoral bruits or hematoma. DP/Radial pulses normal. Abdomen: Soft abdomen, nontender, nondistended without mass. No hepatosplenomegaly. Normal bowel sounds. Musculoskeletal: No kyphoscoliosis. No joint deformities. Extremities: No clubbing or cyanosis. No edema. Warm digits. Neurologic/Psychiatri c: Oriented to person, place, time. Normal affect. No gross focal neurologic deficits. Lines, Drains, and Airways Line Arterial Line 07/04/19 Arterial Line Left Radial 3 days Introducer 07/04/19 Right Neck 3 days Peripheral 07/04/19 Assessment Short Right Hand 18 Gauge 3 days Drain Indwelling Urinary Catheter 07/04/19 Assessment Temperature Monitoring 24 Fr 3 days DATA: Diagnostic tests reviewed for today's visit: Significant Lab Results: CBC, Platelets, Fibrinogen Recent Labs 07/07/19 0455 07/06/19 1648 07/06/19 0512 07/05/19 0854 07/05/19 0232 07/04/19 1410 RBC 2.37* -- 2.34* -- 2.12* < > -- WBC 10.53* -- 11.89* -- 8.65 < > -- HB 7.3* -- 7.2* 7.1* 6.4* < > -- HCT 22.6* -- 21.7* 21.6* 19.6* < > -- PLT 93* -- 94* -- 110* < > -- INR -- -- -- -- 1.16 -- 1.27 APTT -- -- -- -- 29.0 -- 30.5 NA 142 140 140 -- 144 -- 139 K 4.0 4.3 4.0 -- 4.0 -- 3.9 CHLOR 112* 111* 111* -- 114* -- 109* CO2 23 22 23 -- 23 -- 24 BUN 36* 33* 26* -- 16 -- 13 CREAT 1.71* 1.71* 1.33* -- 1.11 -- 1.08 GLUC 123* 131* 131* -- 125* -- 90 CA 8.0* 8.0* 7.9* -- 7.4* -- 7.7* MG -- -- 2.3 -- 2.3 -- 2.8* ANION 11 11 10 -- 11 -- 10 < > = values in this interval not displayed. Recent Labs 07/04/19 1930 07/04/19 1410 07/04/19 1239 07/04/19 1200 07/04/19 1128 PH 7.346* 7.410 7.401 7.407 7.406 PCO2 41.4 35.6 -- -- -- PO2 140.0* 127.0* 470.0* 345.0* 372.0* BE -2.8 -1.7 -- -- -- HCO3 -- -- 27.2* 26.3* 26.3* Assessment/Plan Active Problems: Postoperative Day 3 status post two vessel cardiac bypass HARRINGTON> LAD, Vein>ramus, Aortic valve replacement 23mm [employer] Trifecta Bioprosthetic Valve, Exclusion of Left atrial appendage, endoscopic vein harvest - DIET HEART HEALTHY - Wean pressors as tolerated, nitro/ashanti PRN. Nitro back on this AM for SBP >190 overnight - Mediastinal/chest tubes discontinued 07/06 - pain/nausea control - ASA 162, statin - Albumin PRN for hypotension, 62.5g given postoperatively - Vanc/Ancef completed 07/06 - Vanessa wraps to graft site LLE - PT/OT, mobilize, cardiac rehab - repeat Echo 07/08 Atrial fibrillation with rapid ventricular response - Pacing leads off - metoprolol, amiodarone drip Oliguria, MAURO - farley, strict I/Os, may need additional IVF or nephrology consult Postoperative respiratory insufficiency -aggressive pulmonary toilet Acute on chronic blood loss anemia - Transfuse Hb>7. +2U PRBCs 07/05. Stable this AM. - Iron, folate Vit C Thrombocytopenia - Transfused one unit Platelets 07/05. Monitor for bleeding events. Hypofibrinogenemia - likely due to hemodilution and consumption of clotting factors. Continue to monitor - Received 1U cryo intraoperatively 07/04 Leukocytosis - expected postoperatively, improved, finished postoperative antibiotics Observe for signs of infection: redness, warmth, increased swelling and pain with joint movement, fever, chills, sweats. Postoperative Hematuria - improving. appreciate urology consult, stop CBI and maintain to straight drain. Irrigate PRN, suppositories PRN for bladder spasms, flomax, void trial once out of ICU Hyperglycemia - improved, insulin nomogram off GI PPx -Protonix DVT PPx - SCDs, holding LVX Hypothermia - Active rewarming, resolved Tests/Labs Ordered: 1. EKG SIGNATURE: Jim Castro DO PATIENT NAME: Elias Shah DATE: July 07, 2019 TIME: 6:25 AM PAGER/CONTACT #: [phone] Normal [facility] THERAPY NTon 07-07-2019 THERAPY NT HNO ID: [id number] Author: Daria (Ccc-Pipe Or Steam Fitter Furnace Installer) YUKI Mccauley/GAS BOOSTER ENGINEER Service: Speech/Swallow Author Type: Speech Language Pathologist Type: Therapy (PT/OT/Speech/Resp) Filed: 07/07/2019 2:13 PM Note Text: Speech Therapy Clinical Swallow Evaluation SERVICE DATE: 07/07/2019 SERVICE TIME: 1315 to 1330 ROOM: [id number] Nursing Recommendations: See swallow guide posted in patients room;Reinforce use of swallowing strategies Diet Recommendations: NPO with alternative means of nutrition/hydration/m edication Swallowing Precautions Recommendations: Frequent oral care Results and Recommendations Discussed With: Patient;Nurse Recommended Discharge Disposition: Subacute/SNF Justification For Post Acute Needs: Willing to participate;May not tolerate higher intensity programing;Need for assistance may exceed support available IMPRESSION: Patient demonstrates oral and suspected pharyngeal dysphagia which is negatively impacting his/her ability to effectively maintain adequate nutrition and hydration and/or airway safety. Rehabilitation Precautions: Aspiration Precautions;Dysphagia ;Cognitive Linguistics Deficits;NPO Precaution/Activity Restriction Comments: chest tube, continuous bladder irrigation ASSESSMENT: Tolerance Limited By Alertness -Patient drowsy, up in bed, agreeable to evaluation -Noted multiple beverages on bedside table despite NPO order -Neuro imaging pending -Dependent on caregiver for feeding -Oral phase relatively unremarkable for liquids and ice chip trials -Laryngeal movement detected upon palpation of swallow -Weak cough and multiple swallows with each trial -Recommend NPO at this time -Will benefit from Modified Barium Swallow to further assess oropharyngeal swallow function when alertness and medical status improves -Patient requires continued skilled Speech Therapy for dysphagia and possibly speech, language, and cognitive evaluation Goals for Plan of Care: Swallow Goals: Patient will participate in reassessment at the bedside to determine po readiness and/or need for instrumentation as able and appropriate Patient /Caregiver Goals: Eat/Drink Without Restrictions Speech Rehab Potential: Fair PLAN: Treatment Frequency (times per week): 3 Current admission Treatment Interventions: Dysphagia Management Plan of Care Developed with: Patient TREATMENT INTERVENTIONS: Therapy Diagnosis: Dysphagia, oropharyngeal phase Interventions Provided: Clinical Swallow Evaluation (34607) $ Clinical Swallow Evaluation (59067) Billed Units: 1 unit Total Treatment Time (minutes): 15 SUBJECTIVE: Current Hospital Course: Chart reviewed; Reason for admission: Elias Shah is a 79 year old male who presents for presurgical testing and evaluation prior to CABG/AVR. Mr. Carreno was referred to Dr Rivers for consideration of TAVR, however during workup he was found to have significant coronary artery disease necessitating surgical aortic valve replacement and coronary artery bypass grafting. His past medical history is significant for aortic stenosis, prolonged QT, Mitral Annular Calcification, LBBB, hypertension, hyper lipids, paroxysmal atrial fibrillation, coronary artery disease, recent bowel obstruction and prolonged hospitalization following bowel surgery which was complicated by acute on chronic kidney disease, anemia, encephalopathy. 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 Chest xray Lungs and pleura: Diminished aeration remains at the left lung base with elevation of the left hemidiaphragm and atelectasis. No pneumothorax. CT Brain results pending Reason for Speech Therapy Consult: Concern for dysphagia Relevant Past Medical History: Post polio syndrome, MAURO, afib, CAD, HTN, hyperlipidemia Patient Report: No Home Environment Prior Functional Level: Unable to Assess Assistance Available: Unable to determine at this time Prior Swallowing Function/Diet Textures: Unable to determine at this time Please see discipline specific clinical documentation flowsheet for complete details for this therapy evaluation/treatment. SIGNATURE: Daria Mccauley CCC-GAS BOOSTER ENGINEER PATIENT NAME: Elias Shah DATE: July 07, 2019 TIME: 1:46 PM Normal [facility] ECG COMPLETEon 07-06-2019 ECG COMPLETE NAME : ELIAS SHAH PID : [id number] : 1940 Gender : Male Race : ORD : [id number] Procedure Date : Jul 06 2019 16:54:40 Edit Date : Jul 07 2019 08:49:52 Diagnosis:ATRIAL FIBRILLATION WITH RAPID VENTRICULAR RESPONSE LEFT AXIS DEVIATION INFERIOR INFARCT (CITED ON OR BEFORE 06-JUL-2019) ANTERIOR INFARCT (CITED ON OR BEFORE 06-JUL-2019) ST & T WAVE ABNORMALITY, CONSIDER LATERAL ISCHEMIA ABNORMAL ECG WHEN COMPARED WITH ECG OF 06-JUL-2019 06:19, SERIAL CHANGES OF ANTERIOR INFARCT PRESENT Confirmed by MD WILKES ANUBHAV ([id number]) on 07/07/2019 8:49:48 AM Ventricular Rate : 126 BPM Atrial Rate : 122 BPM QRS Duration : 104 ms Q-T Interval : 340 ms QTC Calculation(Bazett) : 492 ms R Hammond : -39 degrees T Hammond : 142 degrees Test Reason : Arrhythmia [facility] 6 [facility] Overread By : MD WILKES ANUBHAV Edited By : MD WILKES ANUBHAV Referred By : WAYNE RIVERS Acquired by : EDUARDO LEONE [facility] ECG COMPLETE NAME : ELIAS SHAH PID : [id number] : 1940 Gender : Male Race : ORD : [id number] Procedure Date : Jul 06 2019 06:19:49 Edit Date : Jul 06 2019 13:42:12 Diagnosis:ATRIAL FIBRILLATION WITH RAPID VENTRICULAR RESPONSE WITH PREMATURE VENTRICULAR OR ABERRANTLY CONDUCTED COMPLEXES LEFT AXIS DEVIATION INFERIOR INFARCT , AGE UNDETERMINED ANTEROSEPTAL INFARCT , AGE UNDETERMINED ST & T WAVE ABNORMALITY, CONSIDER LATERAL ISCHEMIA ABNORMAL ECG WHEN COMPARED WITH ECG OF 05-JUL-2019 04:46, ATRIAL FIBRILLATION HAS REPLACED ELECTRONIC VENTRICULAR PACEMAKER Confirmed by MD WILKES ANUBHAV ([id number]) on 07/06/2019 1:42:11 PM Ventricular Rate : 136 BPM Atrial Rate : 96 BPM QRS Duration : 100 ms Q-T Interval : 336 ms QTC Calculation(Bazett) : 505 ms R Hammond : -40 degrees T Hammond : 132 degrees Test Reason : Arrhythmia [facility] : 6 [facility] Overread By : MD WILKES ANUBHAV Edited By : MD WILKES ANUBHAV Referred By : WAYNE RIVERS Acquired by : LUCY DALTON [facility] NURSING PROGon 07-06-2019 NURSING PROG HNO ID: [id number] Author: Earline (Rn) AGUSTO Celaya Service: Nursing Author Type: Registered Nurse Type: Nursing Progress Note Filed: 07/06/2019 8:22 PM Note Text: 1635 Runs of 5-9 beats of VT? (ee Documented EKG STrips and 12 lead EKG) BP and O2 sat stable. Afib with rates 100's-130's. Pt Asymptomatic. Daniele MCCRAY at bedside and conferring with Dr Rivers via phone. Stat EKG and BMP done. Lopressor 5 mg given X3 in divided doses. See MAR. To Hold Amioderone for now! Rate controlled down to 90's to l00's and BP remains stable. See Flowsheet. [facility] PROGRESSon 07-06-2019 PROGRESS HNO ID: [id number] Author: Bhanu (Res) MD Ruth Service: Urology Author Type: Resident Type: Progress Notes Filed: 07/06/2019 6:12 PM Note Text: - Urine light brown after being off CBI all day - Stop CBI and maintain farley to straight drain. Irrigate prn - Recommend void trial once out of ICU or when primary thinks its OK - Follow up as outpatient for hematuria w/up - Urology will sign off. Call with questions Bhanu Miranda MD Urology, PGY-2 July 06, 2019 6:12 PM Pager: [phone] [facility] PROGRESS HNO ID: [id number] Author: Marlon Millan (Pa) Service: Cardiovascular Surgery Author Type: Physician Cork Pressing Machine Operator Type: Progress Notes Filed: 07/06/2019 5:20 PM Note Text: CARDIOTHORACICSURGERY PROGRESS NOTE SERVICE DATE: 07/06/2019 SERVICE TIME: 5:00 PM SUBJECTIVE: I was called by RN re: arrhythmia. Patient has history of paroxysmal afib and earlier this AM developed atrial fibrillation with RVR. PO metoprolol increases during AM rounds. OBJECTIVE: Medication drips: Ashanti at 10 mcg Vitals: HR 110-130's, SBP 120-130's (On Ashanti), SpO2 97% on 2L NC Tele: AFIB RVR with approximately 10 beat runs of NSVT. Pt is currently asymptomatic. ASSESSMENT/ PLAN: 1) Afib RVR 2) NSVT -Stop Ashanti -Metoprolol IV 5 mg x 3 -Increase metoprolol to 50 BID -Magnesium 2 g -EKG -STAT BMP -If patient becomes hypotensive, will start amiodarone without bolus. Plan shared with Dr. Rivers and AGUSTO Patten. Time spent coordinating patient care: 18 minutes SIGNATURE: Marlon Millan PA-C PATIENT NAME: Elias Shah DATE: July 06, 2019 TIME: 5:00 PM PAGER/CONTACT #: [phone] ETX#[id number] [facility] PROGRESS HNO ID: [id number] Author: Marlon Dubon Jr. Service: Critical Care Author Type: Physician Type: Progress Notes Filed: 07/06/2019 3:36 PM Note Text: MICU - PROGRESS NOTE SERVICE DATE: July 06, 2019 Admission Date: 07/04/2019 AGE: [age] year old LOS: 2 days Subjective Cc: called to assist with acute postoperative respiratory insufficiency Follows commands, up in chair, sleepy Incisional pain better, weaning oxygen Objective PROBLEMS: ACTIVE PROBLEM LIST Abnormal Electrocardiogram (Ecg) (Ekg) Anemia, Unspecified Aortic Valve Stenosis Atrial Fibrillation With Rapid Ventricular Response (Hcc) Mauro (Acute Kidney Injury) (Hcc) Acute Metabolic Encephalopathy Vitamin D Deficiency Small Bowel Obstruction (Hcc) Paroxysmal Atrial Fibrillation (Hcc) Lbbb (Left Bundle Branch Block) Incarcerated Umbilical Hernia Declining Functional Status Essential Hypertension Hyperlipidemia Impaired Cognition Aortic Stenosis PAST MEDICAL HISTORY Diagnosis Date - Acute kidney injury (HCC) - Acute metabolic encephalopathy - Anemia - Aortic stenosis - Atrial fibrillation (HCC) - Bowel obstruction (HCC) - Coronary artery disease - Hyperlipidemia - Hypertension - Left bundle branch block - Mitral valve annular calcification - Prolonged QT interval - Vitamin D deficiency PAST SURGICAL HISTORY Procedure Laterality Date - REPAIR UMBILICAL HERNIA 12/04/2018 after bowel perforation done at [facility] Dr. Young Social History Socioeconomic History Marital status: Spouse name: Not on file Number of children: Not on file Years of education: Not on file Highest education level: Not on file Occupational History Not on file Social Needs Financial resource strain: Not on file Food insecurity: Worry: Not on file Inability: Not on file Transportation needs: Medical: Not on file Non-medical: Not on file Tobacco Use Smoking status: Former Smoker Packs/day: 1.00 Years: 5.00 Pack years: 5 Quit date: 11/23/1954 Years since quittin.6 Smokeless tobacco: Never Used Substance and Sexual Activity Alcohol use: Yes Comment: social Drug use: Never Sexual activity: Not on file Lifestyle Physical activity: Days per week: Not on file Minutes per session: Not on file Stress: Not on file Relationships Social connections: Talks on phone: Not on file Gets together: Not on file Attends alevism service: Not on file Active member of club or organization: Not on file Attends meetings of clubs or organizations: Not on file Relationship status: Not on file Intimate partner violence: Fear of current or ex partner: Not on file Emotionally abused: Not on file Physically abused: Not on file Forced sexual activity: Not on file Other Topics Concerns: Service: No Blood Transfusions: Yes Caffeine Concern: No Occupational Exposure: Not Asked Hobby Hazards: Not Asked Sleep Concern: No Stress Concern: No Weight Concern: Not Asked Special Diet: No no restrictions Back Care: Not Asked Exercise: No sedentary Bike Helmet: Not Asked Seat Belt: Yes Self-Exams: Not Asked Social History Narrative Not on file VITAL SIGNS (last 24hrs min/max): Temp Av.9 ?C (96.6 ?F) Min: 35.9 ?C (96.6 ?F) Max: 35.9 ?C (96.6 ?F) Pulse Av Min: 60 Max: 80 Arterial BP 1 Min: 128/65 Max: 149/71 Cuff BP Min: 152/106 Max: 152/106 Pain Level: 0 Vital signs reviewed. BP 182/53 Pulse 116 Temp (Src) 99 (Temporal) Resp 13 Ht 6' 0 (1.83m) Wt 212 lb 11.9 oz (96.5kg) SpO2 97% BMI 28.85 kg/(m2). O2 Therapy: Nasal Cannula, Liters: 4 Temp (24hrs), Av.5 ?C (99.5 ?F), Min:37.1 ?C (98.8 ?F), Max:38.1 ?C (100.6 ?F) NET FLUID BALANCE Intake/Output Summary (Last 24 hours) at 07/06/2019 1348 Last data filed at 07/06/2019 0900 Gross per 24 hour Intake 9290 ml Output 93324 ml Net -765 ml MEDICATIONS Current Facility-Administered Medications Medication Dose Route Frequency - PHENYLephrine iv infusion 10 mg in NaCl 0.9% 250 mL (ASHANTI-SYNEPHRINE) 20-200 mcg/min INTRAVENOUS CONTINUOUS - ferrous sulfate 325 mg tab(s) 325 mg ORAL DAILY - ascorbic acid (vitamin C) 500 mg tab(s) (VITAMIN C) 500 mg ORAL DAILY - folic acid 1 mg tab(s) 1 mg ORAL DAILY - metoprolol tartrate (short acting) 25 mg tab(s) (LOPRESSOR) 25 mg ORAL q 12 H - metoprolol 2.5 mg injection (LOPRESSOR) 2.5 mg INTRAVENOUS ONCE - senna-docusate 8.6-50 mg 1 tablet (SENNA-S) 1 tablet ORAL BID - polyethylene glycol 3350 17 g packet (MIRALAX, GLYCOLAX) 17 g ORAL DAILY - bisacodyl 10 mg suppository (DULCOLAX) 10 mg RECTAL DAILY PRN - pantoprazole DR 40 mg tab(s) (PROTONIX) 40 mg ORAL DAILY (6 AM) - tamsulosin ER 0.4 mg cap(s) (FLOMAX) 0.4 mg ORAL DAILY - aspirin 162 mg chewable tab(s) 162 mg ORAL DAILY - potassium chloride iv piggyback 20 mEq/100 mL 20 mEq INTRAVENOUS PRN - magnesium sulfate in water 2 g in sterile water 50 ml 2 g INTRAVENOUS PRN(NO DISPENSE) - acetaminophen 650 mg tab(s) (TYLENOL) 650 mg ORAL q 6 H PRN - enoxaparin 40 mg injection (LOVENOX) 40 mg SUBCUTANEOUS DAILY - albuterol 2.5 mg /3 mL (0.083 %) 2.5 mg (PROVENTIL) 2.5 mg INHALATION q 2 H PRN - atorvastatin 40 mg tab(s) (LIPITOR) 40 mg ORAL AT BEDTIME - ondansetron (PF) 4 mg injection (ZOFRAN) 4 mg INTRAVENOUS q 6 H PRN - oxyCODONE-acetaminoph en 5-325 mg 1-2 tablet (PERCOCET) 1-2 tablet ORAL q 4 H PRN - morphine 2-4 mg injection 2-4 mg INTRAVENOUS q 1 H PRN - NaCl 0.9% irrigation solution 3,000 mL IRRIGATION CONTINUOUS - belladonna-opium 16.2-60 mg 1 Suppository suppository (B and O 16-A) 1 Suppository RECTAL BID PRN Lines, Drains, and Airways Line Arterial Line 07/04/19 Arterial Line Left Radial 2 days Introducer 07/04/19 Right Neck 2 days Peripheral 07/04/19 Assessment Short Right Hand 18 Gauge 2 days Drain Chest Tube Left Pleural Tube #2 -- days Chest Tube 07/04/19 Anterior Mediastinal Tube #1 2 days Chest Tube 07/04/19 Anterior Mediastinal Tube #3 2 days Indwelling Urinary Catheter 07/04/19 Assessment Temperature Monitoring 24 Fr 2 days PHYSICAL EXAM PERFORMED: General: no acute distress Cardiovascular: Regular rhythm - paced Respiratory: Scattered rales Abdomen: Soft and Nontender Extremities: Edema- No Neurologic: awake and follows Respiratory/Nursing Documentation: O2 Therapy: Nasal Cannula (07/06/19 0800) Invasive Ventilator Mode: Continuous Positive Airway Pressure;Pressure Support Ventilation (07/05/19809) Set Ventilator Respiratory Rate (BPM): 0 (07/05/19426) Total Respiratory Rate (BPM): 15 (07/05/19809) Tidal Volume Set (mL): 0 (07/05/19426) Exhaled Tidal Volume (mL): 521 (07/05/19809) Minute Volume (L): 7.03 (07/05/19809) Peak Inspiratory Pressure (cm H2O): 11 (07/05/19809) PEEP/CPAP (cm H2O): 5 (07/05/19809) HEMODYNAMIC DATA: Reviewed DATA: Diagnostic tests reviewed for today's visit, films/specimens were personally reviewed by me: Most recent labs and imaging results. LABS: Recent Labs 07/06/19 0512 07/05/19 0232 WBC 11.89* -- 8.65 RBC 2.34* -- 2.12* HB 7.2* < > 6.4* HCT 21.7* < > 19.6* MCV 92.7 -- 92.5 PLT 94* -- 110* GLUC 131* -- 125* BUN 26* -- 16 CREAT 1.33* -- 1.11 NA 140 -- 144 K 4.0 -- 4.0 CHLOR 111* -- 114* CO2 23 -- 23 CA 7.9* -- 7.4* PTSEC -- -- 11.9 APTT -- -- 29.0 INR -- -- 1.16 MG 2.3 -- 2.3 < > = values in this interval not displayed. ABG: Recent Labs 07/04/19 1930 07/04/19 1410 07/04/19 1239 PH 7.346* 7.410 7.401 PO2 140.0* 127.0* 470.0* PCO2 41.4 35.6 -- CXR - atelectasis/elevation of L diaphragm Assessment/Plan IMPRESSION: Post operative hypoxia 1. CAD, CABG x 2 2. Aortic stenosis s/p AVR 3. Prolonged QT 4. Paced rhythm, LBBB, intermittent tachycardia (PAF) 5. HTN 6. PAF 7. Recent bowel obstruction 8. 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 Chronic elevated LEFT diaphragm 10. Thrombocytopenia 11. Hematuria improved 12. anemia, s/p transfusion 13. MAURO MMP CRITICAL CARE PLAN: Wean oxygen as able Metoprolol, follow lytes Follow hgb Mobilize as able IS Observe in ICU This patient has a high probability of sudden, clinically significant deterioration, which requires the highest level of physician preparedness to intervene urgently. I managed/supervised life or organ supporting interventions that required frequent physician assessment. I devoted my full attention to the direct care of this patient for the amount of time indicated below. Time I spent with family or surrogate(s) is included only if the patient was incapable of providing the necessary information or participating in medical decision making. Time devoted to teaching is not included. Discussed with staff/patient Time spent providing critical care services: 33 minutes excluding procedures. SIGNATURE: Marlon Dubon Jr, MD PATIENT NAME: Elias Shah DATE: July 06, 2019 TIME: 3:36 PM Normal [facility] PROGRESS HNO ID: [id number] Author: Oc Gustafson (Pa) Service: Cardiac Surgery Author Type: Physician Cork Pressing Machine Operator Type: Progress Notes Filed: 07/06/2019 12:04 PM Note Text: CARDIOTHORACIC SURGERY POSTOP PROGRESS NOTE SERVICE DATE: 07/06/2019 SERVICE TIME: 9:17 AM Subjective S/P SURGERY: Procedure(s) (LRB): CORONARY ARTERY BYPASS GRAFT (N/A) AORTIC VALVE REPAIR (N/A) LIGATION OF ATRIAL APPENDAGE (N/A) DATE OF SURGERY: 07/04/2019 POSTOP DAY #2 LOS: 2 INTERVAL EVENTS / PERTINENT ROS: S/P AVR CABG x 2 on 07/04/19. Patient went into Afib this morning around 6 AM. Resident ordered 25 metoprolol PO. Has been in and out of Afib but is currently in sinus tach., sitting up in chair, on 4 L NC. Objective Admission Weight: 90.7 kg (200 lb) BP 182/53 Pulse 113 Temp 37.2 ?C (99 ?F) (Temporal) Resp 13 Ht 182.9 cm (6') Wt 96.5 kg (212 lb 11.9 oz) SpO2 99% BMI 28.85 kg/m? Body surface area is 2.21 meters squared. Min/Max/Average Temperature AND Blood Pressure: Temp (24hrs), Av.5 ?C (99.5 ?F), Min:37.1 ?C (98.8 ?F), Max:38.1 ?C (100.6 ?F) Systolic (24hrs), Av , Min:182 , Max:182 Diastolic (24hrs), Av, Min:53, Max:53 Intake/Output Summary (Last 24 hours) at 07/06/2019 0915 Last data filed at 07/06/2019 0800 Gross per 24 hour Intake 9155 ml Output 33705 ml Net -960 ml TELEMETRY: sinus tachycardia PHYSICAL EXAM: On examination, the patient is awake, alert, and is breathing comfortably. Vital signs are: BP 182/53 Pulse 119 Temp 37.2 ?C (99 ?F) (Temporal) Resp 13 Ht 182.9 cm (6') Wt 96.5 kg (212 lb 11.9 oz) SpO2 98% BMI 28.85 kg/m? There is no JVD. Breath sounds are diminished bilaterally. The sternal wound is intact and the sternum is stable. The cardiac rhythm is regular. There are no rubs, gallops, or murmurs. The carotid, subclavian, and radial pulses are 2+ and equal bilaterally. The abdomen is soft and non-tender. There are hypoactive bowel sounds in all quadrants. There are no abdominal masses. There is no hepatojugular reflux. The saphenous vein harvest sites are intact. There is no pretibial edema. There is no clubbing or cyanosis. The neuro exam is grossly non focal. Chest tube output is serosanguinous. Lines, Drains, and Airways Line Arterial Line 07/04/19 Arterial Line Left Radial 2 days Central Line Quadruple Lumen 07/04/19 Pulmonary Artery Catheter Right Neck 2 days Peripheral 07/04/19 Assessment Short Right Hand 18 Gauge 2 days Drain Chest Tube Left Pleural Tube #2 -- days Chest Tube 07/04/19 Anterior Mediastinal Tube #1 2 days Chest Tube 07/04/19 Anterior Mediastinal Tube #3 2 days Indwelling Urinary Catheter 07/04/19 Assessment Temperature Monitoring 24 Fr 2 days DATA: Diagnostic tests reviewed for today's visit: Chest X-RAY: Lines, tubes, and devices: ?Endotracheal tube and enteric tube have been removed. ?Right internal jugular [place]-Ale catheter noted with tip in the pulmonary outflow tract. Stable positioning left-sided chest tube. ?Stable positioning of mediastinal drain. ?Stable positioning of apparent pericardial drain. Stable positioning left atrial clip. Lungs and pleura: ?Elevated left hemidiaphragm with diminished aeration at the left lung base. ?Stable. ?Right lung is grossly clear. Cardiomediastinal silhouette: ?Heart size normal. ?Stable. Recent Labs 07/06/19 0512 07/05/19 0854 07/05/19 0232 07/04/19 2148 07/04/19 1410 RBC 2.34* -- 2.12* 2.12* < > -- WBC 11.89* -- 8.65 9.78* < > -- HB 7.2* 7.1* 6.4* 6.4* < > -- HCT 21.7* 21.6* 19.6* 19.8* < > -- PLT 94* -- 110* 89* < > -- INR -- -- 1.16 -- -- 1.27 APTT -- -- 29.0 -- -- 30.5 NA 140 -- 144 -- -- 139 K 4.0 -- 4.0 -- -- 3.9 CHLOR 111* -- 114* -- -- 109* CO2 23 -- 23 -- -- 24 BUN 26* -- 16 -- -- 13 CREAT 1.33* -- 1.11 -- -- 1.08 GLUC 131* -- 125* -- -- 90 CA 7.9* -- 7.4* -- -- 7.7* MG 2.3 -- 2.3 -- -- 2.8* ANION 10 -- 11 -- -- 10 < > = values in this interval not displayed. Recent Labs 07/04/19 1930 07/04/19 1410 07/04/19 1239 07/04/19 1200 07/04/19 1128 PH 7.346* 7.410 7.401 7.407 7.406 PCO2 41.4 35.6 -- -- -- PO2 140.0* 127.0* 470.0* 345.0* 372.0* BE -2.8 -1.7 -- -- -- HCO3 -- -- 27.2* 26.3* 26.3* Assessment/Plan CAD -s/p CABG x 2 (HARRINGTON and reversed SVG to the ?ramus intermedius branch) -POD#2 -Medical management with ASA 162, atorvastatin 40, Metoprolol 25 BID -Still on Ashanti -Pain control with orals and morphine -Post operative vest support -500 of albumin today -IS/ ambulation/ PT -D/c chest tubes -D/c swan -Keep farley per urology -Cardiac rehab ? Severe -s/p Aortic valve replacement with [address] Cristhian Trifecta -Medical management with ASA 162 -Repeat echo on 07/08 ? Paroxysmal atrial fibrillation -s/p exclusion of left atrial appendage with a 35 mm ?AtriCure clip -In and out of afib RVR this morning but is currently sinus tach -Was given 25mg metoprolol this AM -D/c Coreg -Start 25 mg metoprolol BID ? Coagulopathy -s/p 1 unit cryoprecipitate intraoperatively -s/p 2 units PRBC 07/05 with suboptimal response -Monitor with CBC in AM ? Thrombocytopenia -s/p 5 pack platelets -Monitor -Defer Lovenox again today ? Hematuria -Urology following -s/p CBI, now intermittent irrigation -Leave farley today per urology ? Acute blood loss anemia -2/2 OR and hematuria -Start Fe, Folate, Vit C today -No indication for transfusion at this time -Monitor with CBC in AM ? BPH -Flomax ? GI PPX -Protonix ? VTE PPX -SCD ? Diet -Heart healthy -Bowel regimen today ? This plan was discussed with Dr. Rivers and the CVICU team Tests/Labs Ordered: 1. Chest X-ray 2. BMP 3. CBC SIGNATURE: Oc Gustafson PA-C PATIENT NAME: Elias Shah DATE: July 06, 2019 TIME: 9:15 AM PAGER/CONTACT #:[phone] [facility] PROGRESS HNO ID: [id number] Author: Abraham Lorenzo Service: Urology Author Type: Physician Type: Progress Notes Filed: 07/06/2019 10:19 AM Note Text: UROLOGY PROGRESS NOTE PATIENT NAME: Elias Shah DATE OF : 1940 ADMISSION DATE: 07/04/2019 6:19 AM Subjective No acute events overnight. Patient extubated and alert. Urine clear yellow on slow drip CBI this morning. Objective VS: BP 182/53 Pulse 76 Temp 37.2 ?C (99 ?F) (Temporal) Resp 13 Ht 182.9 cm (6') Wt 96.5 kg (212 lb 11.9 oz) SpO2 100% BMI 28.85 kg/m? I AND O - 24hr: Intake/Output Summary (Last 24 hours) at 07/06/2019 0729 Last data filed at 07/06/2019 0600 Gross per 24 hour Intake 9155 ml Output 17409 ml Net -995 ml Physical Exam: General: Neck: Resp: Abdomen: No acute distress, alert Supple On nasal cannula Soft, non-tender, nondistended : Urine clear yellow on slow drip CBI Labs and Imaging Studies LABS: BMP: Glucose (mg/dL) Date Value 07/06/2019 131 Potassium (mEq/L) Date Value 07/06/2019 4.0 Sodium (mEq/L) Date Value 07/06/2019 140 Chloride (mEq/L) Date Value 07/06/2019 111 CO2 (mEq/L) Date Value 07/06/2019 23 Creatinine (mg/dL) Date Value 07/06/2019 1.33 BUN (mg/dL) Date Value 07/06/2019 26 Anion Gap (no units) Date Value 07/06/2019 10 Calcium (mg/dL) Date Value 07/06/2019 7.9 CBC: Hemoglobin (g/dL) Date Value 05/20/2019 12.6 HGB (g/dL) Date Value 07/06/2019 7.2 Hematocrit (%) Date Value 07/06/2019 21.7 WBC (thou/cmm) Date Value 07/06/2019 11.89 Platelet Count (thou/cmm) Date Value 07/06/2019 94 Urinalysis: pH, Arterial Date Value Ref Range Status 07/04/2019 7.346 (L) 7.350 - 7.450 Final Specific [place], Ur Date Value Ref Range Status 06/27/2019 1.015 1.005 - 1.030 Final Glucose, Urine Date Value Ref Range Status 06/27/2019 NEGATIVE Negative mg/dL Final Bilirubin, Urine Date Value Ref Range Status 06/27/2019 NEGATIVE Negative Final Ketones, Urine Date Value Ref Range Status 06/27/2019 NEGATIVE Negative mg/dL Final Protein, Urine Date Value Ref Range Status 06/27/2019 100 (A) Negative mg/dL Final Urobilinogen, Urine Date Value Ref Range Status 06/27/2019 0.2 0.2 - 1.0 EU/dL Final Urine Culture: No results found for: URCUL RADIOLOGY: No new imaging Assessment and Plan ASSESSMENT: 79 year old male with gross hematuria s/p farley catheter insertion during CABG ? PLAN: - Maintain 24F farley catheter - Clamped CBI this morning - Irrigate catheter prn - AMAN suppositories prn for bladder spasms - Monitor Hgb. Received 2 units yesterday. Unlikely that drop in Hgb is coming from urine - Hematuria w/up as outpatient once patient clinically stabilizes - Void trial when out of ICU. Page urology resident for void trial instructions Bhanu Miranda MD Urology, PGY-2 July 06, 2019 7:32 AM Pager: [phone] Attending Note I evaluated the patient and personally participated in the simmons components. I agree with the resident's findings and plan as documented and have discussed the case and management of the patient's care with the resident. Signature: Abraham Lorenzo DO, MBA Date: 07/06/2019 Time: 10:19 AM [facility] PROGRESS HNO ID: [id number] Author: Jim Castro DO Service: Cardiac Surgery Author Type: Resident Type: Progress Notes Filed: 07/06/2019 9:54 AM Note Text: Attestation signed by Wayne Rivers at 07/06/2019 3:54 PM Attending Note I evaluated the patient and personally participated in the simmons components. I agree with the resident's findings and plan as documented and have discussed the case and management of the patient's care with the resident. Doing well overall. AF with RVR overnight. Rate better controlled with beta blockade. Will continue beta leyda. Ahsanti and volume for pressure support.Avoid transfusion for now. Start Iron/folate/Vit C. Remove chest tubes. Mobilize. Farley to stay in for hematuria; managed per ESME. Signature: Wayne Rivers MD Date: 07/06/2019 Time: 3:52 PM CARDIOTHORACIC SURGERY POSTOP PROGRESS NOTE SERVICE DATE: 07/06/2019 Subjective S/P SURGERY: Procedure(s) (LRB): CORONARY ARTERY BYPASS GRAFT (N/A) AORTIC VALVE REPAIR (N/A) LIGATION OF ATRIAL APPENDAGE (N/A) DATE OF SURGERY: 07/04/2019 POSTOP DAY #2 LOS: 2 INTERVAL EVENTS / PERTINENT ROS: Complains of 8/10 chest pain this morning. Per nursing just flipped back into Atrial fibrillation. Has not ambulated or ate much of his DIET HEART HEALTHY. Objective Admission Weight: 90.7 kg (200 lb) BP 182/53 Pulse 74 Temp 37.2 ?C (99 ?F) (Temporal) Resp 13 Ht 182.9 cm (6') Wt 96.4 kg (212 lb 8.4 oz) SpO2 96% BMI 28.82 kg/m? Body surface area is 2.21 meters squared. Min/Max/Average Temperature AND Blood Pressure: Temp (24hrs), Av.5 ?C (99.5 ?F), Min:37.1 ?C (98.8 ?F), Max:38.1 ?C (100.6 ?F) Systolic (24hrs), Av , Min:152 , Max:152 Diastolic (24hrs), Av, Min:106, Max:106 Intake/Output Summary (Last 24 hours) at 07/06/2019 0604 Last data filed at 07/06/2019 0400 Gross per 24 hour Intake 64125 ml Output 57859 ml Net -1239 ml TELEMETRY: Afib with RVR PHYSICAL EXAM: General: Well developed and well nourished appearance. Mild distress. Skin: No rash on chest, arms or legs. Warm, dry. Head/Eyes: Sclera clear, normal conjunctiva. EOMI. Mouth/Pharynx: Teeth: Fair dentition. No lesions. Neck: No JVD. Supple. R IJ [place] Ale catheter Lungs: Unlabored breathing on ventilator SpO2 99%. Settings: Invasive Ventilator Mode: Continuous Positive Airway Pressure;Pressure Support Ventilation (07/05/19 0810) %FIO2: 40 Set Ventilator Respiratory Rate (BPM): 0 Tidal Volume Set (mL): 0 PEEP/CPAP (cm H2O): 5 Inspiratory Pressure Set (cm H2O): 1 Patient Data: Inspiratory:Expirator y Ratio: 1.4 Peak Inspiratory Pressure (cm H2O): 11 Weaning Data: Spontaneous Tidal Volume (mL): 468.67 Spontaneous Respiratory Rate (BPM): 15 Rapid Shallow Breathing Index (RSBI): 32.01 Heart: AV pacing leads off, Atrial fibrillation with RVR on telemetry. Wearing cardiac vest Peripheral Vascular/Arteries: Carotid pulse irregular without bruit. No abdominal bruits. No femoral bruits or hematoma. DP/Radial pulses normal. Abdomen: Soft abdomen, nontender, nondistended without mass. No hepatosplenomegaly. Normal bowel sounds. Musculoskeletal: No kyphoscoliosis. No joint deformities. Extremities: No clubbing or cyanosis. No edema. Warm digits. Neurologic/Psychiatri c: Oriented to person, place, time. Normal affect. No gross focal neurologic deficits. Lines, Drains, and Airways Line Arterial Line 07/04/19 Arterial Line Left Radial 2 days Central Line Quadruple Lumen 07/04/19 Pulmonary Artery Catheter Right Neck 2 days Peripheral 07/04/19 Assessment Short Right Hand 18 Gauge 2 days Drain Chest Tube Left Pleural Tube #2 -- days Chest Tube 07/04/19 Anterior Mediastinal Tube #1 2 days Chest Tube 07/04/19 Anterior Mediastinal Tube #3 2 days Indwelling Urinary Catheter 07/04/19 Assessment Temperature Monitoring 24 Fr 2 days DATA: Diagnostic tests reviewed for today's visit: Significant Lab Results: CBC, Platelets, Fibrinogen Recent Labs 07/06/19 0512 07/05/19 0854 07/05/19 0232 07/04/19 2148 07/04/19 1410 RBC 2.34* -- 2.12* 2.12* < > -- WBC 11.89* -- 8.65 9.78* < > -- HB 7.2* 7.1* 6.4* 6.4* < > -- HCT 21.7* 21.6* 19.6* 19.8* < > -- PLT 94* -- 110* 89* < > -- INR -- -- 1.16 -- -- 1.27 APTT -- -- 29.0 -- -- 30.5 NA 140 -- 144 -- -- 139 K 4.0 -- 4.0 -- -- 3.9 CHLOR 111* -- 114* -- -- 109* CO2 23 -- 23 -- -- 24 BUN 26* -- 16 -- -- 13 CREAT 1.33* -- 1.11 -- -- 1.08 GLUC 131* -- 125* -- -- 90 CA 7.9* -- 7.4* -- -- 7.7* MG 2.3 -- 2.3 -- -- 2.8* ANION 10 -- 11 -- -- 10 < > = values in this interval not displayed. Recent Labs 07/04/19 1930 07/04/19 1410 07/04/19 1239 07/04/19 1200 07/04/19 1128 PH 7.346* 7.410 7.401 7.407 7.406 PCO2 41.4 35.6 -- -- -- PO2 140.0* 127.0* 470.0* 345.0* 372.0* BE -2.8 -1.7 -- -- -- HCO3 -- -- 27.2* 26.3* 26.3* Assessment/Plan Active Problems: Postoperative Day 2 status post two vessel cardiac bypass HARRINGTON> LAD, Vein>ramus, Aortic valve replacement 23mm St Cristhian Trifecta Bioprosthetic Valve, Exclusion of Left atrial appendage, endoscopic vein harvest - DIET HEART HEALTHY - NS @50cc/h - Wean pressors as tolerated, nitro/ashanti PRN. Ashanti back on this AM. - Mediastinal/chest tubes -20cm suction. Discontinue once output decreases - pain/nausea control - ASA 162, statin - Albumin PRN for hypotension, 50g given postoperatively - Vanc/Ancef ending today - Vanessa wraps to graft site LLE - PT/OT, mobilize once extubated, cardiac rehab Atrial fibrillation with rapid ventricular response - Repeat EKG - Pacing leads off - Added PO metoprolol in addition to home Carvedilol - May require amiodarone drip Postoperative respiratory insufficiency -aggressive pulmonary toilet post extubation Acute on chronic blood loss anemia - Transfuse Hb>7. +2U PRBCs 07/05. Stable this AM. Thrombocytopenia - Transfused one unit Platelets 07/05. Monitor for bleeding events. Hypofibrinogenemia - likely due to hemodilution and consumption of clotting factors. Continue to monitor - Received 1U cryo intraoperatively 07/04 Leukocytosis - expected postoperatively, on Vanc/Ancef until today, Observe for signs of infection: redness, warmth, increased swelling and pain with joint movement, fever, chills, sweats. Postoperative Hematuria - improving. appreciate urology consult, upgraded at bedside to soft 24F 3-way catheter and started on CBI. Irrigate PRN, suppositories PRN for bladder spasms, flomax, strict I/Os Hyperglycemia - improved, insulin nomogram off GI PPx -Protonix DVT PPx - SCDs, holding LVX Hypothermia - Active rewarming, resolved Tests/Labs Ordered: 1. EKG SIGNATURE: Jim Castro DO PATIENT NAME: Elias Shah DATE: July 06, 2019 TIME: 6:05 AM PAGER/CONTACT #: [phone] Normal [facility] THERAPY NTon 07-06-2019 THERAPY NT HNO ID: [id number] Author: Crystal Lir/Carleen Berrios Service: Occupational Therapy Author Type: Occupational Therapist Type: Therapy (PT/OT/Speech/Resp) Filed: 07/06/2019 4:11 PM Note Text: Occupational Therapy Evaluation SERVICE DATE: 07/06/2019 SERVICE TIME: 1345 to 1355 ROOM: [id number] Recommended Discharge Disposition: Subacute/SNF Recommended Discharge Disposition Comments: Pt is functioning below baseline and will require 24 hour assistance. Pt. would benefit from skilled OT services to improve safety and independence during functional mobility AND self care tasks. Justification For Post Acute Needs: Anticipate that patient will require daily (5x/wk) skilled therapy in a post-acute facility setting at the time of acute hospital discharge OT Recommendations to Nursing: OOB for meals;With assist of 2 people;ADL?s in chair Equipment: Wheeled Walker OT 6 Clicks Score: 13 Precautions/Activity Restrictions: Cardiac;Fall Risk;Sternal Precaution/Activity Restriction Comments: chest tube, continuous bladder irrigation ASSESSMENT: Patient presents with deficits in grooming, UE bathing/dressing, LE bathing/dressing, functional transfers, functional mobility, decreased safety awareness, and decreased insight to deficits after nonrheumatic aortic valve stenosis s/p CABG x2 AND AVR. Requires skilled OT to maximize independence with ADLs and functional transfers. Patient displayed cognitive impairments throughout the session. He was only oriented to person and kept repeating his birthday when asked where he was and the date. Patient would benefit from further cognitive testing for follow up treatments. Patient Disposition at Start of Session: OOB in Chair;Call Slade in Reach Patient Disposition at End of Session: OOB in Chair;Call Slade in Reach Tolerated Full Session Occupational Therapy Problem List: Education Deficit;Cognitive Deficit;Safety Deficits;Impaired Self Care;Decreased Activity Tolerance;Decreased Strength;Functional Mobility Impairment;Balance Impaired Patient /Caregiver Goals: Go Home Goals for Plan of Care: Grooming with: Minimal Assistance Upper Body Bathing with: Minimal Assistance Upper Body Dressing with: Minimal Assistance Lower Body Bathing with: Moderate Assistance Lower Body Dressing with: Moderate Assistance Chair Transfer with: Minimal Assistance Toilet Transfer with: Minimal Assistance Tolerate (minutes of functional activity): 15 Functional Activity with: Minimal Assistance Additional Goal 1: Pt. will demonstrate good awareness of sternal precautions Additional Goal 2: Pt. will score 26/30 on the MOCA version 1 Demonstrate Competence With Education with: Stand By Assistance(safety during self care within precautions) Rehab Potential: Good PLAN: Treatment Frequency (times per week): 3(1-3) Current admission Treatment Interventions: Education;Self Care / Home Management;Energy Conservation Training;Strengthenin g;Functional Mobility Training;Balance Training;Cognitive Training Plan of Care developed with: Patient TREATMENT INTERVENTIONS: Therapy Diagnosis: Reduced mobility-other;Decrea sed activities of daily living (ADL);Muscle Weakness (generalized);Unstead iness on feet;General symptoms and signs-other;Signs and Symptoms Involving Cognitive Functions and Awareness Interventions Provided: Evaluation $ Evaluation-Moderate (12645) Billed Units: 1 unit OT Evaluation Moderate Complexity: Occupational Profile - Extended review of patient's medical record completed including patient's physical, cognitive, and psycho-social history (please see current hospital course of evaluation). Occupational Performance - Pt presents with deficits in feeding, grooming, UE bathing/dressing, LE bathing/dressing, functional transfers, functional mobility, decreased safety awareness, decreased insight into deficits Complexity in Clinical Decision Making - The extent of clinical reasoning was moderate, several treatment options present for the patient, need for modification during the evaluation was minimal/moderate, comorbidities affecting occupational performance: Relevant Past Medical History: aortic stenosis, anemia, afib, impaired cognition. Total Treatment Time (minutes): 10 SUBJECTIVE: Current Hospital Course: Chart reviewed; presents for presurgical testing and evaluation prior to CABG/AVR. -S/P AVR CABG x 2 on 07/04/19 -pt extubated (07/04) Reason for Occupational Therapy Consult: Saety Assessment Relevant Past Medical History: aortic stenosis, anemia, afib, impaired cognition Patient Report: Patient OOB in chair, agreeable to therapy, reported mild pain. When asked if he was in the hospital for a heart surgery, he responded No. Home Environment Patient Lives With: Family(sister) Assistance Available: multimedia production assistant Entry To Home: Stairs Prior Functional Level: Within Functional Limits Prior Functional Level Comments: patient questionable historian at time of eval; states was independent prior to admission without device, unable to provide detailed home setting OBJECTIVE: Cognition/Communicati on Deficits Orientation Deficits: Not oriented to Place;Not oriented to Time;Not oriented to Situation Responsiveness: Drowsy Follows Commands: 1-step Commands;Cueing Needed Cueing to Follow Commands: Minimum Memory Deficits: Short Term Executive Function Deficits: Sequencing;Judgement; Insight to Deficits;Problem Solving;Safety Awareness Sequencing Deficit: Moderate impairment Judgement Deficit: Moderate impairment Insight to Deficits: Moderate impairment Problem Solving Deficit: Moderate impairment Safety Awareness Deficit: Moderate impairment CURRENT FUNCTIONAL STATUS: Current Activities of Daily Living Assist Level Feeding Set Up Grooming Maximal Assistance Bathing Upper Body Maximal Assistance Bathing Lower Body Maximal Assistance Dressing Upper Body Maximal Assistance Dressing Lower Body Maximal Assistance Toileting Total Assistance(farley) Functional Mobility Assist Level Rolling Supine to Sit Sit to Supine Scooting Maximal Assistance Sit to Stand Moderate Assistance Stand to Sit Moderate Assistance Bed to Chair Toilet/Commode Functional Mobility Moderate Assistance Other: See Comment(Cart) Functional Mobility Comments: Functional mobility from chair to hallway Range of Motion: ROM Limitation Comments ROM Limitation Comments: Unable to formally assess due to sternal precautions, but appears to be WFL Strength: Strength Limitation Comments Strength Limitation Comments: Unable to formally assess due to sternal precautions, but appears to be decreased Balance: Dynamic Standing;Static Standing Static Standing Balance: Moderate Assistance Dynamic Standing Balance: Moderate Assistance Please see discipline specific clinical documentation flowsheet for complete details for this therapy evaluation/treatment. SIGNATURE: Leah Fletcher/OT PATIENT NAME: Elias Shah DATE: July 06, 2019 TIME: 2:45 PM Evaluation and/or treatment directly supervised by licensed Occupational Therapist. I reviewed and agree with the documentation corresponding to this therapy visit. SIGNATURE: ERIC Montague/Carroll DATE: July 06, 2019 TIME: 4:11 PM Normal [facility] THERAPY NT HNO ID: [id number] Author: Misa GusmanPtSachin Felipe Service: Physical Therapy Author Type: Physical Therapist Type: Therapy (PT/OT/Speech/Resp) Filed: 07/06/2019 2:51 PM Note Text: Physical Therapy Evaluation SERVICE DATE: 07/06/2019 SERVICE TIME: 8120 to 1415 ROOM: [id number] Recommended Discharge Disposition: Subacute/SNF Recommended Discharge Disposition Comments: patient independent prior to admission, currently requires assist with functional mobility Justification For Post Acute Needs: Good premorbid functional status;Medically complex;Anticipate that patient will require daily (5x/wk) skilled therapy in a post-acute facility setting at the time of acute hospital discharge PT Recommendations to Nursing: Ambulate with device;To bathroom;In halls;Transfer to/from chair;OOB for Meals;With assist of 2 people Device: Wheeled Walker PT 6 Clicks Score: 12 Precautions/Activity Restrictions: Cardiac;Fall Risk;Sternal Precaution/Activity Restriction Comments: chest tube, continuous bladder irrigation ASSESSMENT : This patient was admitted for aortic stenosis, has the past medical history of afib, impaired cognition, HTN impacting current functional level, as well as the social factors complicating the discharge of lives with sister, requires significant assist with functional mobility post-op. This patient is below baseline functioning of independent without device and will benefit from continued skilled therapy in the hospital for treatment of the following body systems/impairments: musculoskeletal, cardiopulmonary (strength, endurance, balance, safety awareness, gait, transfers, stairs, device management) Patient Disposition at Start of Session: OOB in Chair;Call Slade in Reach Patient Disposition at End of Session: OOB in Chair;Call Slade in Reach;Nursing Personnel Present Tolerated Full Session Physical Therapy Problem List: Education Deficit;Pain;Safety Deficits;Decreased Activity Tolerance;Decreased Range Of Motion;Decreased Strength;Functional Mobility Impairment;Balance Impaired Patient /Caregiver Goals: Go Home Goals for Plan of Care: Able to perform HEP with: Minimal Assistance(3x10 BLE general strengthening therapeutic exercise) Transfer supine to/from sit with: Minimal Assistance Transfer sit to/from stand with: Minimal Assistance Ambulate with: Minimal Assistance Distance: 50ft intervals Device: Wheeled Walker Rehab Potential: Good PLAN: Treatment Frequency (times per week): 5(1-5) Current admission Treatment Interventions: Education;Strengtheni ng;Functional Mobility Training;Balance Training;Pain Management Plan of Care developed with: Patient TREATMENT INTERVENTIONS: Interventions Provided: Evaluation;Gait Training (10763) $ Evaluation-Moderate (00157) Billed Units: 1 unit History and examination of body systems see assessment section above. This patient?s clinical presentation is evolving. The patient required a moderate complexity evaluation. Gait Training (08028) Treatment Minutes: 8 1 unit Skilled Intervention(s): Instruction in sternal precautions prior to mobilization including no pushing/pulling with bilateral upper extremity. Instructed in crossing bilateral upper extremity across chest and utilizing momentum to achieve standing. Cues for upright posture in standing with activation of glutes to stand erect. Cues for diaphragmatic breathing in standing. Cues to advance bilateral lower extremity to initiate ambulation. Continuous cues for posture during ambulation to facilitate correct gait pattern. 2x10ft with monitoring of vitals and assist for balance, device management. Cues to feel chair on back of legs prior to initiating sit, cues to cross arms over chest and deep bow like sitting in low chair. Total Timed Code Treatment Minutes: 8 Total Treatment Time (minutes): 25 SUBJECTIVE: Current Hospital Course: Chart reviewed; Patient admitted for aortic stenosis, CABG. 07/04 SURGERY/PROCEDURE(S): Two vessel cardiac bypass HARRINGTON> LAD, Vein>ramus, Aortic valve replacement 23mm St Cristhian Trifecta Bioprosthetic Valve, Exclusion of Left atrial appendage, endoscopic vein harvesting Reason for Physical Therapy Consult : eval and treat Relevant Past Medical History: aortic stenosis, anemia, afib, impaired cognition Patient Report: Patient confused. Woken from nap, alertness improves throughout session. agreeable to physical therapy. RN present. Home Environment Patient Lives With: Family(sister) Assistance Available: multimedia production assistant Entry To Home: Stairs Prior Functional Level: Within Functional Limits Prior Functional Level Comments: patient questionable historian at time of eval; states was independent prior to admission without device, unable to provide detailed home setting OBJECTIVE: Range of Motion: WFL Strength: Strength Limitation Comments;Right LE Measurement;Left LE Measurement Strength Limitation Comments: assessed in sitting Right Hip Flexion Strength: 4/5 Right Knee Flexion Strength: 4/5 Right Knee Extension Strength: 4/5 Right Ankle Dorsiflexion Strength: 4/5 Left Hip Flexion Strength: 4/5 Left Knee Flexion Strength: 4/5 Left Knee Extension Strength: 4/5 Left Ankle Dorsiflexion Strength: 4/5 CURRENT FUNCTIONAL STATUS: Current Functional Mobility Assist Level Additional Information Rolling Supine to Sit Sit to Supine Scooting Moderate Assistance Sit to Stand Moderate Assistance Stand to Sit Moderate Assistance Bed to Chair Toilet/Commode Gait Moderate Assistance Gait Device: Other: See Comment(cart) Gait Distance (feet): 10ftx2 Stairs Curb Step Car Transfer General Gait Deviations: Suzan decreased;Step length decreased;Flexed trunk posture;Wide base of support;Shuffling Gait;Difficulty changing direction/turning;Non -functional gait speed Balance: Static Sitting;Dynamic Sitting;Static Standing;Dynamic Standing Static Sitting Balance: Supervision Dynamic Sitting Balance: Contact Guard Assistance Static Standing Balance: Contact Guard Assistance Dynamic Standing Balance: Minimal Assistance Activity Tolerance: Standing Activity Standing Activity: limited by fatigue, endurance Standing Activity Tolerance (in minutes): 4 JH-HLM: 6: Walk 10 steps or more Please see discipline specific clinical documentation flowsheet for complete details for this therapy evaluation/treatment. SIGNATURE: Misa Felipe PT PATIENT NAME: Elias Shah DATE: July 06, 2019 TIME: 2:44 PM [facility] CASE MGT INGARRY Jones 2018 CASE MGT INIT DEVAN HNO ID: [id number] Author: Imelda (Rn) AGUSTO Rizvi Service: ? Author Type: Registered Nurse Type: Care Mgt Initial Assessment Filed: 07/05/2019 3:04 PM Note Text: CARE MANAGEMENT: ASSESSMENT AND DISCHARGE PLAN SERVICE DATE: 07/05/2019 SERVICE TIME: 3:01 PM PRIMARY CARE PHYSICIAN: Mal Main MD ADMISSION STATUS: Inpatient Needs Prior to Discharge: Discharge Prescriptions;Home Care Order MEDICAL: Patient/Representativ e Stated Goals: To have reduction in symptoms To improve my functional status To return home to life as it was To be cured/healed Health Insurance: MEDICARE A AND B [employer] Indemnity Health Issues Impacting Discharge Plan: Newly diagnosed CABG Last Discharge Date: 05/25/19 Is this Within the Past 30 days? No Advance Directive: Current Advance Directive: Health Care Power of Horse Buyer;Living Will In Chart: Yes Up To Date and Valid: Yes Health Literacy: 1. How often do you need to have someone help you when you read instructions, pamphlets, or other written material from your doctor or pharmacy? Never - 1 2. How confident are you filling out medical forms by yourself? Extremely - 1 If Patient scores > 3 on either question, the following interventions were put into place: Patient did not score > 3 FUNCTIONAL AND COGNITIVE/BEHAVIORAL PRIOR TO ADMISSION: Baseline Mental Status: Alert AND Oriented, Person, Place , Time and Situation Functional Status: Independent Does Patient Currently Receive Any Community Services or Home Care? None Equipment Prior to Admission: Walker Has the Patient Been in a Alf Facility in the Past 30 days? No SOCIAL: Living Arrangement: Home Lives With: sister Financial Resources: Retired Primary Contact: Extended Emergency Contact Information Primary Emergency Contact: Helena Enriquez Relation: Sister Supportive: Yes Other Important Patient Contacts: None Caregiver Assessment: Caregiver is ready, willing and able to meet the patient's needs as recommended by the inter-professional team? Yes Patient's transition needs and plan for meeting these needs: home with sister and C Does the patient have an acute stroke diagnosis, or has the patient had a stroke during this admission? No Medication Adherence: I am convinced of the importance of my prescription medication: Agree completely - 0 I worry that my prescription medication will do more harm than good to me Disagree completely - 0 I feel financially burdened by my [id number] expenses for my prescription medication: Disagree completely - 0 Patient is categorized as low risk < 2 Are you interested in bedside delivery of your medications? No Food Concerns: In the Last Month, Have You had Trouble Getting Food? No trouble getting food During the Last Month, Have You Worried Whether Your Food Would Run Out Before You Had Enough Money to Buy More? No Is the Patient Psychosocially Complex? No ASSESSMENT AND PLAN: Medical Needs: 2 or more chronic diseases Psychosocial Needs: None FREEDOM OF CHOICE EXPLAINED: Yes [facility] Financial Disclosure Provided Preference: [facility] POTENTIAL TRANSITION PLANS Home Home Care Met with pt, explained CM role. Ind bell captain. Discussed post CABG disch needs. Planis home with sister's assist. Agreeable to [facility] - referral created. SIGNATURE: Imelda Rizvi RN PATIENT NAME: Elias Shah DATE: July 05, 2019 TIME: 3:01 PM PAGER/CONTACT #: [phone] Normal [facility] ECG COMPLETEon 07-05-2019 ECG COMPLETE NAME : ELIAS SHAH PID : [id number] : 1940 Gender : Male Race : ORD : [id number] Procedure Date : Jul 05 2019 04:46:58 Edit Date : Jul 05 2019 08:38:13 Diagnosis:AV dual-paced rhythm ABNORMAL ECG WHEN COMPARED WITH ECG OF 04-JUL-2019 15:30, VENT. RATE HAS INCREASED BY 63 BPM Confirmed by MD CUHNG, ABDELRAHMAN ([id number]) on 07/05/2019 8:38:12 AM Ventricular Rate : 139 BPM Atrial Rate : 139 BPM QRS Duration : 36 ms Q-T Interval : 170 ms QTC Calculation(Bazett) : 258 ms R Hammond : 88 degrees T Hammond : -58 degrees Test Reason : Post-OP Location : 6 : [place] [address] Overread By : MD WILKES ANUBHAV Edited By : MD WILKES ANUBHAV Referred By : WAYNE RIVERS Acquired by : SAÚL HOWARD Kati [facility] NUTRITIONon 07-05-2019 NUTRITION HNO ID: [id number] Author: Teresa GusmanSupervisor [employer]) [place] Service: Nutrition Therapy Author Type: Steward/Stewardess Type: Nutrition Filed: 07/05/2019 2:33 PM Note Text: Attestation signed by Yasmine Sanchez RD at 07/05/2019 3:04 PM NUTRITION THERAPY: TEACHING DIETITIAN NOTE OF PERSONAL INVOLVEMENT OF CARE. I have reviewed and agree with the assessment as documented by the cisco certified internetwork expert. I have discussed the case and management of the patient?s nutrition therapy with the cisco certified internetwork expert. SIGNATURE: Yasmine Sanchez RD, DATE: July 05, 2019 TIME: 3:04 PM NUTRITION THERAPY INITIAL ASSESSMENT SERVICE DATE: 07/05/2019 SERVICE TIME: 11:18 AM RECOMMENDED MALNUTRITION DIAGNOSIS: UNABLE TO IDENTIFY MALNUTRITION AT THIS TIME NUTRITION CARE PLAN: Problem, Etiology and Signs/Symptoms: Increased nutrient needs kcal and protein related to increased metabolic demand as evidenced by acute post op status. Intervention: -Recommend Swallow Eval to assess if diet can be advanced. -Recommend [facility] Healthy diet when able. Collaborated with AGUSTO Patten Monitor and Evaluation: Goal: Meet >75% of estimated needs Monitor fluid/electrolyte balance Monitor labs, I/Os, vital signs, weight Discharge Nutrition Recommendations: To be determined Reason for Visit: Vent Per HPI: 79 year old male presenting for Coronary Artery Bypass Graft and Aortic Valve Repair on 07/04/19. Hx of aortic stenosis, MAURO, anemia, A fib, HTN, HLD, CAD, recent bowel obstruction, and bowel surgery. Acute post op respiratory insufficiency. Chest tube in place. Farley catheter inserted in OR due to bloody urine. Urology consulted. Pt extubated this morning without complications. Orders Placed This Encounter DIET NPO Standing Status: Standing Number of Occurrences: 1 Lines and Drains: Central Line Quadruple Lumen 07/04/19 Pulmonary Artery Catheter Right Neck (Active) Peripheral 07/04/19 Assessment Short Right Hand 18 Gauge (Active) Indwelling Urinary Catheter 07/04/19 Assessment Temperature Monitoring 24 Fr (Active) Chest Tube 07/04/19 Anterior Mediastinal Tube #1 (Active) Chest Tube Left Pleural Tube #2 (Active) Chest Tube 07/04/19 Anterior Mediastinal Tube #3 (Active) Nutritional Intake Prior to Admission: Unable to determine -Unable to determine prior nutritional intake due to patient unable to speak. Patient has been NPO since yesterday post op. Pt was extubated earlier this morning. Spoke with AGUSTO Patten and we are still waiting on a swallow eval to advance diet order, but he should be eating by the end of the day. GI symptoms: unable to determine at this time Nutrition Abdominal Exam: not assessed ANTHROPOMETRICS Height: 182.9 cm (6') Admission Weight: 90.7 kg (200 lb) Current Weight: 96.4 kg (212 lb 8.4 oz) Body mass index is 28.82 kg/m?. normal based on age Weight has increased by 7kg over 1 months representing 7.8% weight change potentially clinically significant but does not meet criteria to support a malnutrition diagnosis Last Wt 07/05/19 : 96.4 kg (212 lb 8.4 oz) - bed wt 07/04/19 : 95.6 kg (210 lb 12.2 oz) - bed wt 07/02/19 : 90.72 kg (200 lb) 06/27/19 : 90.7 kg (200 lb) 05/25/19 : 89.4 kg (197 lb) 05/11/19 : 88.5 kg (195 lb) 05/11/19 : 88.8 kg (195 lb 12.8 oz) 04/13/19 : 88.9 kg (196 lb) Dosing Weight: 96.4 kg Resting Metabolic Rate: 1712 Estimated kilocalorie needs: 3236-4037 kilocalories determined by 25-30 kcal/kg Estimated protein needs: 115-145 grams determined by 1.2-1.5 g/kg Dosing weight Estimated fluid needs: 2384-3925 milliliters based on 1 mL per kcal NUTRITION FOCUSED PHYSICAL EXAM: Subcutaneous Fat Loss Orbital Moderate Triceps Mild Mid-axillary at the iliac crest Unable to determine at this time Muscle Loss Locations: Temporalis Mild Pectoralis Moderate Deltoids Mild Interosseous Moderate Latissimus dorsi, trapezius Unable to determine at this time Quadriceps Unable to determine at this time Gastrocnemius Unable to determine at this time Potential micronutrient deficiency revealed in: No deficiency identified Edema: No Ascites: No Assessment of Functional Status: Functional capacity is unrelated to nutrition status Temperature Max in 24 hours: Temp (24hrs), Av.4 ?C (97.6 ?F), Min:32.2 ?C (90 ?F), Max:37.6 ?C (99.7 ?F) BP 152/106 Pulse 70 Temp 37.4 ?C (99.3 ?F) Resp 14 Ht 182.9 cm (6') Wt 96.4 kg (212 lb 8.4 oz) SpO2 100% BMI 28.82 kg/m? Recent Labs 07/05/19 0854 07/05/19 0232 GLUC -- 125* BUN -- 16 CREAT -- 1.11 NA -- 144 K -- 4.0 CHLOR -- 114* CO2 -- 23 HB 7.1* 6.4* HCT 21.6* 19.6* WBC -- 8.65 MG -- 2.3 Potential Signs of Inflammation: hyperglycemia and acute post-operative MNT Billing Type: Initial Assess/15 min 3 units SIGNATURE: Teresa Schultz, Supervisor [employer] PATIENT NAME: Elias Shah DATE: July 05, 2019 TIME: 9:28 AM PAGER: [phone] Normal [facility] PROGRESSon 07-05-2019 PROGRESS HNO ID: [id number] Author: Marlon Millan (Pa) Service: Cardiovascular Surgery Author Type: Physician [employer] Pressing Machine Operator Type: Progress Notes Filed: 07/05/2019 2:58 PM Note Text: CARDIOTHORACIC SURGERY POSTOP PROGRESS NOTE SERVICE DATE: 07/05/2019 SERVICE TIME: 2:23 PM Subjective S/P SURGERY: Procedure(s) (LRB): CORONARY ARTERY BYPASS GRAFT (N/A) AORTIC VALVE REPAIR (N/A) LIGATION OF ATRIAL APPENDAGE (N/A) DATE OF SURGERY: 07/04/2019 POSTOP DAY #1 LOS: 1 INTERVAL EVENTS / PERTINENT ROS: Patient seen and examined. Patient has received 1 unit cryoprecipitate intraoperatively. Urology is following for hematuria. Pressors now off. On SBT now. Objective Admission Weight: 90.7 kg (200 lb) BP 152/106 Pulse 68 Temp 37.6 ?C (99.7 ?F) Resp 13 Ht 182.9 cm (6') Wt 96.4 kg (212 lb 8.4 oz) SpO2 99% BMI 28.82 kg/m? Body surface area is 2.21 meters squared. Min/Max/Average Temperature AND Blood Pressure: Temp (24hrs), Av.5 ?C (97.7 ?F), Min:32.2 ?C (90 ?F), Max:37.6 ?C (99.7 ?F) Intake/Output Summary (Last 24 hours) at 07/05/2019 1423 Last data filed at 07/05/2019 1200 Gross per 24 hour Intake 40979.1 ml Output 28405 ml Net 1573.1 ml TELEMETRY: Paced with underlying sinus rhythm PHYSICAL EXAM: General Appearance: Patient is currently on ventilator with Precedex running. NAD. Skin: Midsternal incision dry AND intact. and compression wrap covering LLE. CT sites with sero/sang output. Head/Eyes: EOM's intact and ET/ OG tubes in place Neck: no JVD and Supple. RIJ intact. Lungs: clear and respiratory effort: normal Heart: regular rhythm and pacing wires present Peripheral Vascular/Arteries: dorsalis pedis 2+ and posterior tibia 2+ Abdomen: soft, non-tender and bowel sounds present Genitourinary: Farley intact, urine color is tea colored Neurologic/Psychiatri c: Sedated with Precedex but follows commands Extremities: no edema Lines, Drains, and Airways Line Arterial Line 07/04/19 Arterial Line Left Radial 1 day Central Line Quadruple Lumen 07/04/19 Pulmonary Artery Catheter Right Neck 1 day Peripheral 07/04/19 Assessment Short Right Hand 18 Gauge 1 day Drain Chest Tube Left Pleural Tube #2 -- days Chest Tube 07/04/19 Anterior Mediastinal Tube #1 1 day Chest Tube 07/04/19 Anterior Mediastinal Tube #3 1 day Indwelling Urinary Catheter 07/04/19 Assessment Temperature Monitoring 24 Fr 1 day DATA: Diagnostic tests reviewed for today's visit: Chest X-RAY: ?Persistent small left pleural effusion with basilar atelectasis Recent Labs 07/05/19 0854 07/05/19 0232 07/04/19 2148 07/04/19 1436 07/04/19 1410 07/04/19 1239 RBC -- 2.12* 2.12* 2.85* -- -- -- WBC -- 8.65 9.78* 6.65 -- -- -- HB 7.1* 6.4* 6.4* 8.5* < > -- -- HCT 21.6* 19.6* 19.8* 25.9* < > -- 22* PLT -- 110* 89* 100* -- -- -- INR -- 1.16 -- -- -- 1.27 -- APTT -- 29.0 -- -- -- 30.5 -- NA -- 144 -- -- -- 139 140 K -- 4.0 -- -- -- 3.9 3.7 CHLOR -- 114* -- -- -- 109* -- CO2 -- 23 -- -- -- 24 -- BUN -- 16 -- -- -- 13 -- CREAT -- 1.11 -- -- -- 1.08 -- GLUC -- 125* -- -- -- 90 -- CA -- 7.4* -- -- -- 7.7* -- MG -- 2.3 -- -- -- 2.8* -- ANION -- 11 -- -- -- 10 -- < > = values in this interval not displayed. Recent Labs 07/04/19 1930 07/04/19 1410 07/04/19 1239 07/04/19 1200 07/04/19 1128 PH 7.346* 7.410 7.401 7.407 7.406 PCO2 41.4 35.6 -- -- -- PO2 140.0* 127.0* 470.0* 345.0* 372.0* BE -2.8 -1.7 -- -- -- HCO3 -- -- 27.2* 26.3* 26.3* Assessment/Plan Multivessel coronary disease; severe aortic stenosis; . CAD -s/p CABG x 2 (HARRINGTON and reversed SVG to the ramus intermedius branch) -POD#1 -Medical management with ASA 162, atorvastatin 40 -s/p Ashanti -Off pacing -EF 60% 04/2019 -Possibly start beta leyda later tonight or 07/06 -Pain control with Percocet, APAP, morphine -Post operative vest support -IS/ ambulation/ PT -Continue with chest tubes to suction -Perioperative with ancef and vancomycin -Cardiac rehab Severe -s/p Aortic valve replacement with [address] Cristhian Trifecta -Medical management with ASA 162 -Repeat echo on 07/08 Paroxysmal atrial fibrillation -s/p exclusion of left atrial appendage with a 35 mm AtriCure clip Coagulopathy -s/p 1 unit cryoprecipitate intraoperatively -s/p 2 units PRBC this AM with suboptimal response -Clinically improving -Monitor Thrombocytopenia -s/p 5 pack platelets -Monitor -Defer Lovenox Hematuria -Urology following -s/p CBI, now intermittent irrigation Acute blood loss anemia -2/2 OR and hematuria -See above BPH -Flomax GI PPX -PPI to PO VTE PPX -SCD Diet -Heart healthy D/W Dr. Rivers and CVICU team. Tests/Labs Ordered: 1. BMP 2. BMP 3. CXR SIGNATURE: Marlon Millan PA-C PATIENT NAME: Elias Shah DATE: July 05, 2019 TIME: 2:23 PM PAGER/CONTACT #: [phone] Normal [facility] PROGRESS HNO ID: [id number] Author: Earline (Rn) AGUSTO Celaya Service: Nursing Author Type: Registered Nurse Type: Progress Notes Filed: 07/05/2019 12:46 PM Note Text: 1105: pt extubated to 4L nc without distress. Normal [facility] PROGRESS HNO ID: [id number] Author: Bhanu (Res) MD Ruth Service: Urology Author Type: Resident Type: Progress Notes Filed: 07/05/2019 11:23 AM Note Text: Attestation signed by Kiran Son at 07/05/2019 2:32 PM See consult note Kiran Son MD UROLOGY PROGRESS NOTE PATIENT NAME: Elias Shah DATE OF : 1940 ADMISSION DATE: 07/04/2019 6:19 AM Subjective No acute events overnight. Patient remains intubated and on vasopressors. Urine light pink on slow drip CBI this morning. Objective VS: BP 152/106 Pulse 70 Temp 37.4 ?C (99.3 ?F) Resp 13 Ht 182.9 cm (6') Wt 96.4 kg (212 lb 8.4 oz) SpO2 100% BMI 28.82 kg/m? I AND O - 24hr: Intake/Output Summary (Last 24 hours) at 07/05/2019 1121 Last data filed at 07/05/2019 0700 Gross per 24 hour Intake 59899.1 ml Output 94208 ml Net 1644.1 ml Physical Exam: General: Neck: Resp: Abdomen: No acute distress, intubated Supple Intubated, on ventilator Soft, non-tender, nondistended : Urine light pink on slow drip CBI Labs and Imaging Studies LABS: BMP: Glucose (mg/dL) Date Value 07/05/2019 125 Potassium (mEq/L) Date Value 07/05/2019 4.0 Sodium (mEq/L) Date Value 07/05/2019 144 Chloride (mEq/L) Date Value 07/05/2019 114 CO2 (mEq/L) Date Value 07/05/2019 23 Creatinine (mg/dL) Date Value 07/05/2019 1.11 BUN (mg/dL) Date Value 07/05/2019 16 Anion Gap (no units) Date Value 07/05/2019 11 Calcium (mg/dL) Date Value 07/05/2019 7.4 CBC: Hemoglobin (g/dL) Date Value 05/20/2019 12.6 HGB (g/dL) Date Value 07/05/2019 7.1 Hematocrit (%) Date Value 07/05/2019 21.6 WBC (thou/cmm) Date Value 07/05/2019 8.65 Platelet Count (thou/cmm) Date Value 07/05/2019 110 Urinalysis: pH, Arterial Date Value Ref Range Status 07/04/2019 7.346 (L) 7.350 - 7.450 Final Specific [place], Ur Date Value Ref Range Status 06/27/2019 1.015 1.005 - 1.030 Final Glucose, Urine Date Value Ref Range Status 06/27/2019 NEGATIVE Negative mg/dL Final Bilirubin, Urine Date Value Ref Range Status 06/27/2019 NEGATIVE Negative Final Ketones, Urine Date Value Ref Range Status 06/27/2019 NEGATIVE Negative mg/dL Final Protein, Urine Date Value Ref Range Status 06/27/2019 100 (A) Negative mg/dL Final Urobilinogen, Urine Date Value Ref Range Status 06/27/2019 0.2 0.2 - 1.0 EU/dL Final Urine Culture: No results found for: URCUL RADIOLOGY: No new imaging Assessment and Plan ASSESSMENT: 79 year old male with gross hematuria s/p farley catheter insertion during CABG ? PLAN: - Maintain 24F farley catheter - Hold CBI this morning. Will re-check urine later today - Irrigate catheter q4h - AMAN suppositories prn for bladder spasms - Monitor Hgb. Received 2 units this morning. Unlikely that drop in Hgb is from urine given significant improvement - Hematuria w/up as outpatient once patient clinically stabilizes Bhanu Miranda MD Urology, PGY-2 July 05, 2019 11:23 AM Pager: [phone] [facility] PROGRESS HNO ID: [id number] Author: Marlon Dubon Jr. Service: Critical Care Author Type: Physician Type: Progress Notes Filed: 07/05/2019 10:34 AM Note Text: MICU - PROGRESS NOTE SERVICE DATE: July 05, 2019 Admission Date: 07/04/2019 AGE: [age] year old LOS: 1 days Subjective Cc: called to assist with acute postoperative respiratory insufficiency Follows commands Incisional pain and wants ETT out but not other complaints Objective PROBLEMS: ACTIVE PROBLEM LIST Abnormal Electrocardiogram (Ecg) (Ekg) Anemia, Unspecified Aortic Valve Stenosis Atrial Fibrillation With Rapid Ventricular Response (Hcc) Mauro (Acute Kidney Injury) (Hcc) Acute Metabolic Encephalopathy Vitamin D Deficiency Small Bowel Obstruction (Hcc) Paroxysmal Atrial Fibrillation (Hcc) Lbbb (Left Bundle Branch Block) Incarcerated Umbilical Hernia Declining Functional Status Essential Hypertension Hyperlipidemia Impaired Cognition Aortic Stenosis PAST MEDICAL HISTORY Diagnosis Date - Acute kidney injury (HCC) - Acute metabolic encephalopathy - Anemia - Aortic stenosis - Atrial fibrillation (HCC) - Bowel obstruction (HCC) - Coronary artery disease - Hyperlipidemia - Hypertension - Left bundle branch block - Mitral valve annular calcification - Prolonged QT interval - Vitamin D deficiency PAST SURGICAL HISTORY Procedure Laterality Date - REPAIR UMBILICAL HERNIA 12/04/2018 after bowel perforation done at [facility] Dr. Young Social History Socioeconomic History Marital status: Spouse name: Not on file Number of children: Not on file Years of education: Not on file Highest education level: Not on file Occupational History Not on file Social Needs Financial resource strain: Not on file Food insecurity: Worry: Not on file Inability: Not on file Transportation needs: Medical: Not on file Non-medical: Not on file Tobacco Use Smoking status: Former Smoker Packs/day: 1.00 Years: 5.00 Pack years: 5 Quit date: 11/23/1954 Years since quittin.6 Smokeless tobacco: Never Used Substance and Sexual Activity Alcohol use: Yes Comment: social Drug use: Never Sexual activity: Not on file Lifestyle Physical activity: Days per week: Not on file Minutes per session: Not on file Stress: Not on file Relationships Social connections: Talks on phone: Not on file Gets together: Not on file Attends alevism service: Not on file Active member of club or organization: Not on file Attends meetings of clubs or organizations: Not on file Relationship status: Not on file Intimate partner violence: Fear of current or ex partner: Not on file Emotionally abused: Not on file Physically abused: Not on file Forced sexual activity: Not on file Other Topics Concerns: Service: No Blood Transfusions: Yes Caffeine Concern: No Occupational Exposure: Not Asked Hobby Hazards: Not Asked Sleep Concern: No Stress Concern: No Weight Concern: Not Asked Special Diet: No no restrictions Back Care: Not Asked Exercise: No sedentary Bike Helmet: Not Asked Seat Belt: Yes Self-Exams: Not Asked Social History Narrative Not on file VITAL SIGNS (last 24hrs min/max): Temp Av.9 ?C (96.6 ?F) Min: 35.9 ?C (96.6 ?F) Max: 35.9 ?C (96.6 ?F) Pulse Av Min: 60 Max: 80 Arterial BP 1 Min: 128/65 Max: 149/71 Cuff BP Min: 152/106 Max: 152/106 Pain Level: 0 Vital signs reviewed. BP 152/106 Pulse 70 Temp 99.3 Resp 14 Ht 6' 0 (1.83m) Wt 212 lb 8.4 oz (96.4kg) SpO2 100% BMI 28.82 kg/(m2). O2 Therapy: Ventilator, %FIO2: 40 Temp (24hrs), Av.4 ?C (97.6 ?F), Min:32.2 ?C (90 ?F), Max:37.6 ?C (99.7 ?F) NET FLUID BALANCE Intake/Output Summary (Last 24 hours) at 07/05/2019 1030 Last data filed at 07/05/2019 0700 Gross per 24 hour Intake 03099.1 ml Output 96344 ml Net 1644.1 ml MEDICATIONS Current Facility-Administered Medications Medication Dose Route Frequency - tamsulosin ER 0.4 mg cap(s) (FLOMAX) 0.4 mg ORAL DAILY - insulin regular iv infusion 100 units in NaCl 0.9% 100 mL - AK CARD SURG NOMOGRAM 0-12 Units/hr INTRAVENOUS CONTINUOUS - insulin regular human iv bolus 10 Units 10 Units INTRAVENOUS PRN - dextrose 50 % 12.5 g injection 12.5 g INTRAVENOUS PRN - dexmedetomidine 400 mcg in NaCl 0.9% 100 mL (PRECEDEX) 0.2-0.7 mcg/kg/hr INTRAVENOUS CONTINUOUS - aspirin 162 mg chewable tab(s) 162 mg ORAL DAILY - potassium chloride iv piggyback 20 mEq/100 mL 20 mEq INTRAVENOUS PRN - magnesium sulfate in water 2 g in sterile water 50 ml 2 g INTRAVENOUS PRN(NO DISPENSE) - acetaminophen 650 mg tab(s) (TYLENOL) 650 mg ORAL q 6 H PRN - enoxaparin 40 mg injection (LOVENOX) 40 mg SUBCUTANEOUS DAILY - NaCl 0.9% iv infusion 50 mL/hr INTRAVENOUS CONTINUOUS - albuterol 2.5 mg /3 mL (0.083 %) 2.5 mg (PROVENTIL) 2.5 mg INHALATION q 2 H PRN - ceFAZolin iv piggyback 2 g in D5W (iso-osmotic) 100 mL (ANCEF) 2 g INTRAVENOUS q 6 HR - vancomycin iv piggyback 1 g in D5W 200 mL (VANCOCIN) 1 g INTRAVENOUS q 12 HR - pantoprazole 40 mg injection (PROTONIX) 40 mg INTRAVENOUS DAILY (6 AM) - ondansetron (PF) 4 mg injection (ZOFRAN) 4 mg INTRAVENOUS q 6 H PRN - midazolam (PF) 2 mg injection (VERSED) 2 mg INTRAVENOUS q 6 H PRN - oxyCODONE-acetaminoph en 5-325 mg 1-2 tablet (PERCOCET) 1-2 tablet ORAL q 4 H PRN - morphine 2-4 mg injection 2-4 mg INTRAVENOUS q 1 H PRN - nitroglycerin 100 mg in D5W 250 mL 5-200 mcg/min INTRAVENOUS CONTINUOUS - albumin (25%) 25 g infusion 25 g INTRAVENOUS PRN - PHENYLephrine iv infusion 10 mg in NaCl 0.9% 250 mL (ASHANTI-SYNEPHRINE) 25-300 mcg/min INTRAVENOUS CONTINUOUS - NaCl 0.9% irrigation solution 3,000 mL IRRIGATION CONTINUOUS - belladonna-opium 16.2-60 mg 1 Suppository suppository (B and O 16-A) 1 Suppository RECTAL BID PRN Lines, Drains, and Airways Line Arterial Line 07/04/19 Arterial Line Left Radial 1 day Central Line Quadruple Lumen 07/04/19 Pulmonary Artery Catheter Right Neck 1 day Peripheral 07/04/19 Assessment Short Right Hand 18 Gauge 1 day Drain Chest Tube Left Pleural Tube #2 -- days Chest Tube 07/04/19 Anterior Mediastinal Tube #1 1 day Chest Tube 07/04/19 Anterior Mediastinal Tube #3 1 day Indwelling Urinary Catheter 07/04/19 Assessment Temperature Monitoring 24 Fr 1 day Airway Airway Endotracheal Tube 07/04/19 1100 less than 1 day PHYSICAL EXAM PERFORMED: General: no acute distress Cardiovascular: Regular rhythm - paced Respiratory: Scattered rales Abdomen: Soft and Nontender Extremities: Edema- No Neurologic: awake and follows Respiratory/Nursing Documentation: O2 Therapy: Ventilator (07/05/19809) Invasive Ventilator Mode: Continuous Positive Airway Pressure;Pressure Support Ventilation (07/05/19809) Set Ventilator Respiratory Rate (BPM): 0 (07/05/19426) Total Respiratory Rate (BPM): 15 (07/05/19809) Tidal Volume Set (mL): 0 (07/05/19426) Exhaled Tidal Volume (mL): 521 (07/05/19809) Minute Volume (L): 7.03 (07/05/19809) Peak Inspiratory Pressure (cm H2O): 11 (07/05/19809) PEEP/CPAP (cm H2O): 5 (07/05/19809) HEMODYNAMIC DATA: Reviewed DATA: Diagnostic tests reviewed for today's visit, films/specimens were personally reviewed by me: Most recent labs and imaging results. LABS: Recent Labs 07/05/19 0854 07/05/19 0232 WBC -- 8.65 RBC -- 2.12* HB 7.1* 6.4* HCT 21.6* 19.6* MCV -- 92.5 PLT -- 110* GLUC -- 125* BUN -- 16 CREAT -- 1.11 NA -- 144 K -- 4.0 CHLOR -- 114* CO2 -- 23 CA -- 7.4* PTSEC -- 11.9 APTT -- 29.0 INR -- 1.16 MG -- 2.3 ABG: Recent Labs 07/04/19 1930 07/04/19 1410 07/04/19 1239 PH 7.346* 7.410 7.401 PO2 140.0* 127.0* 470.0* PCO2 41.4 35.6 -- CXR - atelectasis/elevation of L diaphragm Assessment/Plan IMPRESSION: Critical Care Documentation: The patient has the following organ/system impairment(s): acute post operative respiratory insufficiency 1. CAD, CABG x 2 2. Aortic stenosis s/p AVR 3. Prolonged QT 4. Paced rhythm, LBBB 5. HTN 6. PAF 7. Recent bowel obstruction 8. 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 Chronic elevated LEFT diaphragm 10. Thrombocytopenia 11. Hematuria and anemia, s/p transfusion MMP CRITICAL CARE PLAN: Extubate if passes SBT - other medical conditions stable Post operative care per primary service This patient has a high probability of sudden, clinically significant deterioration, which requires the highest level of physician preparedness to intervene urgently. I managed/supervised life or organ supporting interventions that required frequent physician assessment. I devoted my full attention to the direct care of this patient for the amount of time indicated below. Time I spent with family or surrogate(s) is included only if the patient was incapable of providing the necessary information or participating in medical decision making. Time devoted to teaching is not included. Discussed with staff/patient Time spent providing critical care services: 34 minutes excluding procedures. SIGNATURE: Marlon Dubon Jr, MD PATIENT NAME: Elias Shah DATE: July 05, 2019 TIME: 10:30 AM Normal [facility] PROGRESS HNO ID: [id number] Author: Jim Castro DO Service: Cardiac Surgery Author Type: Resident Type: Progress Notes Filed: 07/05/2019 9:12 AM Note Text: Attestation signed by Wayne Rivers at 07/05/2019 6:20 PM Attending Note I evaluated the patient and personally participated in the simmons components. I agree with the resident's findings and plan as documented and have discussed the case and management of the patient's care with the resident. Doing well. Wean to extubate. Hematuria resolving. Signature: Wayne Rivers MD Date: 07/05/2019 Time: 6:20 PM CARDIOTHORACIC SURGERY POSTOP PROGRESS NOTE SERVICE DATE: 07/05/2019 SERVICE TIME: 6:11 AM Subjective S/P SURGERY: Procedure(s) (LRB): CORONARY ARTERY BYPASS GRAFT (N/A) AORTIC VALVE REPAIR (N/A) LIGATION OF ATRIAL APPENDAGE (N/A) DATE OF SURGERY: 07/04/2019 POSTOP DAY #1 LOS: 1 INTERVAL EVENTS / PERTINENT ROS: Awake on ventilator. Gives thumbs up, wiggles toes. Unable to be extubated yesterday. Per nursing when turned approximately 450cc of blood from chest tubes. Transfusing second unit PRBCs this AM. Objective Admission Weight: 90.7 kg (200 lb) BP 152/106 Pulse 70 Temp 37.5 ?C (99.5 ?F) Resp 14 Ht 182.9 cm (6') Wt 95.6 kg (210 lb 12.2 oz) SpO2 99% BMI 28.58 kg/m? Body surface area is 2.2 meters squared. Min/Max/Average Temperature AND Blood Pressure: Temp (24hrs), Av.3 ?C (97.4 ?F), Min:32.2 ?C (90 ?F), Max:37.6 ?C (99.7 ?F) Systolic (24hrs), Av , Min:152 , Max:152 Diastolic (24hrs), Av, Min:106, Max:106 Intake/Output Summary (Last 24 hours) at 07/05/2019 0611 Last data filed at 07/05/2019 0400 Gross per 24 hour Intake 84869.1 ml Output 50107 ml Net 454.1 ml TELEMETRY: A-V sequential pacing PHYSICAL EXAM: General: Well developed and well nourished appearance. No acute distress. Skin: No rash on chest, arms or legs. Warm, dry. Head/Eyes: Sclera clear, normal conjunctiva. EOMI. Mouth/Pharynx: Teeth: Fair dentition. No lesions. Neck: No JVD. Supple. R IJ [place] catheter Lungs: Unlabored breathing on ventilator SpO2 99%. Settings: Invasive Ventilator Mode: Continuous Positive Airway Pressure;Pressure Support Ventilation (07/05/19 0427) %FIO2: 40 Set Ventilator Respiratory Rate (BPM): 0 Tidal Volume Set (mL): 0 PEEP/CPAP (cm H2O): 5 Inspiratory Pressure Set (cm H2O): 1 Patient Data: Inspiratory:Expirator y Ratio: 1.4 Peak Inspiratory Pressure (cm H2O): 12 Weaning Data: Spontaneous Tidal Volume (mL): 447.06 Spontaneous Respiratory Rate (BPM): 17 Rapid Shallow Breathing Index (RSBI): 38.03 Heart: 70 BPM AV pacing on telemetry Peripheral Vascular/Arteries: Carotid pulse normal without bruit. No abdominal bruits. No femoral bruits or hematoma. DP/Radial pulses normal. Abdomen: Soft abdomen, nontender, nondistended without mass. No hepatosplenomegaly. Normal bowel sounds. Musculoskeletal: No kyphoscoliosis. No joint deformities. Extremities: No clubbing or cyanosis. No edema. Warm digits. Neurologic/Psychiatri c: Oriented to person, place, time. Normal affect. No gross focal neurologic deficits. Lines, Drains, and Airways Line Arterial Line 07/04/19 Arterial Line Left Radial 1 day Central Line Quadruple Lumen 07/04/19 Pulmonary Artery Catheter Right Neck 1 day Peripheral 07/04/19 Assessment Short Right Hand 18 Gauge 1 day Drain Chest Tube Left Pleural Tube #2 -- days Chest Tube 07/04/19 Anterior Mediastinal Tube #1 1 day Chest Tube 07/04/19 Anterior Mediastinal Tube #3 1 day Indwelling Urinary Catheter 07/04/19 Assessment Temperature Monitoring 24 Fr 1 day Airway Airway Endotracheal Tube 07/04/19 1100 less than 1 day DATA: Diagnostic tests reviewed for today's visit: Significant Lab Results: CBC, Platelets, Fibrinogen Recent Labs 07/05/19 0232 07/04/19 2148 07/04/19 1436 07/04/19 1410 07/04/19 1239 RBC 2.12* 2.12* 2.85* -- -- WBC 8.65 9.78* 6.65 -- -- HB 6.4* 6.4* 8.5* -- -- HCT 19.6* 19.8* 25.9* -- 22* PLT 110* 89* 100* -- -- INR 1.16 -- -- 1.27 -- APTT 29.0 -- -- 30.5 -- NA 144 -- -- 139 140 K 4.0 -- -- 3.9 3.7 CHLOR 114* -- -- 109* -- CO2 23 -- -- 24 -- BUN 16 -- -- 13 -- CREAT 1.11 -- -- 1.08 -- GLUC 125* -- -- 90 -- CA 7.4* -- -- 7.7* -- MG 2.3 -- -- 2.8* -- ANION 11 -- -- 10 -- Recent Labs 07/04/19 1930 07/04/19 1410 07/04/19 1239 07/04/19 1200 07/04/19 1128 PH 7.346* 7.410 7.401 7.407 7.406 PCO2 41.4 35.6 -- -- -- PO2 140.0* 127.0* 470.0* 345.0* 372.0* BE -2.8 -1.7 -- -- -- HCO3 -- -- 27.2* 26.3* 26.3* Assessment/Plan Active Problems: Postoperative Day 1 status post two vessel cardiac bypass [place]> LAD, Vein>ramus, Aortic valve replacement 23mm [place] Trifecta Bioprosthetic Valve, Exclusion of Left atrial appendage, endoscopic vein harvest - DIET NPO - NS @50cc/h - Wean pressors as tolerated, nitro/ashanti PRN. Ashanti at 10mcg/min this AM - Mediastinal/chest tubes -20cm suction - pain/nausea control - ASA 162, statin - Albumin PRN for hypotension, 50g given postoperatively - Vanc/Ancef until 07/06 - Vanessa wraps to graft site LLE - PT/OT, mobilize once extubated Postoperative Bradycardia - Cardiac pacing 70 beats/min, maintain AV pacing leads Postoperative respiratory insufficiency -Wean vent as able, SAT/SBT, Daily CXR, aggressive pulmonary toilet post extubation - Vent Settings Invasive Ventilator Mode: Continuous Positive Airway Pressure;Pressure Support Ventilation (07/05/19 0292) %FIO2: 40 Set Ventilator Respiratory Rate (BPM): 0 Tidal Volume Set (mL): 0 PEEP/CPAP (cm H2O): 5 Inspiratory Pressure Set (cm H2O): 1 Patient Data: Inspiratory:Expirator y Ratio: 1.4 Peak Inspiratory Pressure (cm H2O): 12 Weaning Data: Spontaneous Tidal Volume (mL): 447.06 Spontaneous Respiratory Rate (BPM): 17 Rapid Shallow Breathing Index (RSBI): 38.03 Acute on chronic blood loss anemia - Transfuse Hb>7. +2U PRBCs this AM Thrombocytopenia - Transfusing one unit Platelets this AM. Monitor for bleeding events. Hypofibrinogenemia - likely due to hemodilution and consumption of clotting factors. Continue to monitor - Received 1U cryo intraoperatively 07/04 Postoperative Hematuria - Appreciate urology consult, upgraded at bedside to soft 24F 3-way catheter and started on CBI. Irrigate PRN, suppositories PRN for bladder spasms, flomax, strict I/Os Hyperglycemia - Insulin nomogram, 1.5 U/hr this AM GI PPx -Protonix DVT PPx - LVX, SCDs Hypothermia - Active rewarming, resolved Tests/Labs Ordered: 1. Hemoglobin SIGNATURE: Jim Castro DO PATIENT NAME: Elias Shah DATE: July 05, 2019 TIME: 6:11 AM PAGER/CONTACT #: [phone] [facility] PROGRESS HNO ID: [id number] Author: Joel GusmanRn) AGUSTO Resendez Service: Critical Care Author Type: Registered Nurse Type: Progress Notes Filed: 07/05/2019 4:22 AM Note Text: HAND H 1 hour after completion of PRBC infusion 6.[address] Rivers paged twice. RN reported lab to Dr. Kincaid. See new orders. [facility] THERAPY NTon 07-05-2019 THERAPY NT HNO ID: [id number] Author: Crystal Lir/Carleen Berrios Service: Occupational Therapy Author Type: Occupational Therapist Type: Therapy (PT/OT/Speech/Resp) Filed: 07/05/2019 11:54 AM Note Text: OCCUPATIONAL THERAPY MISSED VISIT SERVICE DATE: 07/05/2019 SERVICE TIME: 1154 to 1154 ROOM: [place] [address] Attempted Evaluation. Patient not seen due to Illness(intubted). Will continue to follow as able and appropriate. SIGNATURE: Crystal Berrios OTR/L PATIENT NAME: Elias Shah DATE: July 05, 2019 TIME: 11:54 AM Normal [facility] THERAPY NT HNO ID: [id number] Author: Nohemi (Pt) Shefali Service: Physical Therapy Author Type: Physical Therapist Type: Therapy (PT/OT/Speech/Resp) Filed: 07/05/2019 8:54 AM Note Text: PHYSICAL THERAPY MISSED VISIT SERVICE DATE: 07/05/2019 SERVICE TIME: 0853 to 852 ROOM: [place] [address] Attempted Evaluation. Patient not seen due to Illness(intubated). Will continue to follow patient as able. SIGNATURE: Nohemi Meehan, PT PATIENT NAME: Elias Shah DATE: July 05, 2019 TIME: 8:54 AM Normal [facility] ANES Namita 07-04-2019 ANES POST HNO ID: [id number] Author: Dion Monroe Service: Anesthesiology Author Type: Physician Type: Anesthesia PostOp Filed: 07/04/2019 7:58 PM Note Text: POST ANESTHESIA EVALUATION NOTE SERVICE DATE: 07/04/2019 SERVICE TIME: 7:58 PM : 1940 Vitals: 07/04/19 1615 07/04/19 1630 07/04/19 1639 07/04/19 1645 Temp: (!) 32.2 ?C (90 ?F) (!) 34.9 ?C (94.8 ?F) (!) 32.5 ?C (90.5 ?F) (!) 33.1 ?C (91.6 ?F) 07/04/19181407/04/19182907/04/19184407/04/19 190 Arterial BP 1: 129/58 123/54 138/62 128/57 BP: 07/04/19181407/04/19182907/04/19 18407/04/19 1900 Pulse: 70 70 70 70 07/04/19181407/04/19182907/04/19184407/04/19 1900 Resp: 14 14 16 17 08/12/19 1815 07/04/19 1830 07/04/19 1845 07/04/19 1900 SpO2: 100% 100% 100% 100% Validated Vital Signs: Yes POST ANES STATUS: No apparent anesthetic complications. The patient is appropriately hydrated with stable respiratory and cardiovascular status. Patient has safe and adequate airway control. The patient has appropriate pain relief and no significant post operative nausea or vomiting. The patient has achieved baseline mental status. Intra-Operative Events: No Significant Anesthesia Events Further assessment by Anesthesia Service: None Other Remarks: SIGNATURE: Dion Monroe MD PATIENT NAME: Elias Shah DATE: July 04, 2019 TIME: 7:58 PM PAGER/CONTACT #: [phone] [facility] ANES PREOPon 07-04-2019 ANES PREOP HNO ID: [id number] Author: Burak Gamez Service: ? Author Type: Physician Type: Anesthesia PreOp Filed: 07/04/2019 7:34 AM Note Text: ANESTHESIOLOGY DAY OF SURGERY NOTE SERVICE DATE: 07/04/2019 SERVICE TIME: 7:33 AM : 1940 Procedure(s) (LRB): CORONARY ARTERY BYPASS GRAFT (N/A) AORTIC VALVE REPAIR (N/A) Surgeon(s): Wayne Rivers Estimated body mass index is 27.12 kg/m? as calculated from the following: Height as of this encounter: 182.9 cm (6'). Weight as of this encounter: 90.7 kg (200 lb). Most recent hematocrit and potassium results: Hematocrit 39.2 06/27/2019 Potassium 4.2 06/27/2019 ANES DOS/PREOP NOTE: Vitals: 07/02/19 1400 07/04/19 0650 BP: 152/106 Pulse: 60 Resp: 18 Temp: (!) 35.9 ?C (96.6 ?F) SpO2: 98% Weight: 90.7 kg (200 lb) Height: 182.9 cm (6') ACTIVE PROBLEM LIST Abnormal Electrocardiogram (Ecg) (Ekg) Anemia, Unspecified Aortic Valve Stenosis Atrial Fibrillation With Rapid Ventricular Response (Hcc) Mauro (Acute Kidney Injury) (Hcc) Acute Metabolic Encephalopathy Vitamin D Deficiency Small Bowel Obstruction (Hcc) Paroxysmal Atrial Fibrillation (Hcc) Lbbb (Left Bundle Branch Block) Incarcerated Umbilical Hernia Declining Functional Status Essential Hypertension Hyperlipidemia Impaired Cognition PAST MEDICAL HISTORY Diagnosis Date - Acute kidney injury (HCC) - Acute metabolic encephalopathy - Anemia - Aortic stenosis - Atrial fibrillation (HCC) - Bowel obstruction (HCC) - Coronary artery disease - Hyperlipidemia - Hypertension - Left bundle branch block - Mitral valve annular calcification - Prolonged QT interval - Vitamin D deficiency PAST SURGICAL HISTORY Procedure Laterality Date - REPAIR UMBILICAL HERNIA 12/04/2018 after bowel perforation done at [facility] Dr. Young FAMILY HISTORY Problem Relation Age of Onset - Osteoporosis Mother - Heart Mother - Cancer Father Social History: Social History Tobacco Use - Smoking status: Former Smoker Packs/day: 1.00 Years: 5.00 Pack years: 5.00 Last attempt to quit: 11/23/1954 Years since quittin.6 - Smokeless tobacco: Never Used Substance Use Topics - Alcohol use: Yes Comment: social - Drug use: Never No current facility-administered medications on file prior to encounter. Current Outpatient Medications on File Prior to Encounter: aspirin 81 mg chewable tablet Take 324 mg by mouth one time only. Lactobacillus acidophilus/lact (LACTOBACILLUS ACIDOPH-LACTASE ORAL) Take by mouth twice daily. amLODIPine (NORVASC) 5 mg tablet Take 5 mg by mouth once daily. carvedilol (COREG) 25 mg tablet Take 25 mg by mouth three times daily. fluticasone (FLONASE ALLERGY RELIEF) 50 mcg/actuation nasal spray Use 1 [place] in each nostril once daily. Cholecalciferol, Vitamin D3, 5,000 unit cap Take 5,000 Units by mouth once daily. ferrous sulfate 325 mg (65 mg iron) tablet Take 325 mg by mouth daily with breakfast. rosuvastatin (CRESTOR) 5 mg tablet Take 5 mg by mouth once daily. ondansetron (ZOFRAN) 4 mg tablet Take 4 mg by mouth every 8 hours as needed. Acetaminophen 500 mg cap Take 2 capsules by mouth twice daily as needed. loperamide (IMODIUM) 2 mg cap(s) Take 2 mg by mouth once daily. Current Facility-Administered Medications Medication Dose Route Frequency Provider Last Rate Last Dose - ceFAZolin iv piggyback 2 g in D5W (iso-osmotic) 100 mL (ANCEF) 2 g INTRAVENOUS ONCE Oc Rubi (Pa) vancomycin iv piggyback 1 g in D5W 200 mL (VANCOCIN) 1 g INTRAVENOUS ONCE Oc (Sadia Gustafson - heparin 3,000 Units in NaCl 0.9% 500 mL irrigation 3,000 Units IRRIGATION ONCE Wayne A Lahorra - PHENYLephrine 20 mg in NaCl 0.9% 250 mL (ASHANTI-SYNEPHRINE) 25-300 mcg/min INTRAVENOUS ONCE Wayne A Lahorra - aminocaproic acid 10 g in NaCl 0.9% 250 mL (AMicAR) 1 g/hr INTRAVENOUS ONCE Wayne A Lahorra - dexmedetomidine 400 mcg in NaCl 0.9% 100 mL (PRECEDEX) 0.2-0.7 mcg/kg/hr INTRAVENOUS ONCE Wayne A Lahorra - EPINEPHrine 4 mg in NaCl 0.9% 250 mL 0.5-10 mcg/min INTRAVENOUS ONCE Wayne A Lahorra - insulin regular iv infusion 100 units in NaCl 0.9% 100 mL - AK CARD SURG NOMOGRAM 0-12 Units/hr INTRAVENOUS ONCE Wayne A Lahorra - nitroglycerin 100 mg in D5W 250 mL 5-20 mcg/min INTRAVENOUS ONCE Wayne A Lahorra - NORepinephrine 16 mg in NaCl 0.9% 250 mL (LEVOPHED) 0-20 mcg/min INTRAVENOUS ONCE Wayne A Lahorra - PHENYLephrine iv infusion 10 mg in NaCl 0.9% 250 mL (ASHANTI-SYNEPHRINE) 0-100 mcg/min INTRAVENOUS ONCE Wayne A Lahorra - dextrose 50 g, insulin regular human 10 Units, potassium chloride 80 mEq, lidocaine (PF) 20 mg/mL (2 %) 100 mg, magnesium sulfate 4 g in electrolyte-a (PLASMA-LYTE A) 1,000 mL solution MISCELLANEOUS ONCE Wayne A Lahorra - dextrose 25 g, insulin regular human 5 Units, potassium chloride 20 mEq, lidocaine (PF) 20 mg/mL (2 %) 50 mg, magnesium sulfate 2 g in electrolyte-a (PLASMA-LYTE A) 500 mL solution MISCELLANEOUS ONCE Wayne A Lahorra Allergies: ALLERGIES No Known Allergies DOS EXAM: Adequate NPO Status: Yes Anesthetic Risks, Benefits, Alternatives, Personnel and Consent Discussed: Yes Patient agrees to proceed: Yes Previous Anesthesia: No history of adverse event Airway Assessment: MP 2; Neck ROM: Full ROM without neurologic symptoms; Airway Evaluation: No significant abnormalities Symptoms of Sleep Apnea: Snoring Dentition: Dentures: both Additional Physical Exam: Lungs: Patient health status unchanged since recent history and physical. See history and physical for exam findings. Cardiac: Patient health status unchanged since recent history and physical. See history and physical for exam findings. Additional Pertinent Findings: N/A Blood Products: Will accept Blood/Blood Products Anesthetic Plan: General Anesthetic Monitoring: Standard ASA Monitors and Invasive Hemodynamic Monitoring Arterial line, PA Catheter and OLIMPIA - patient denies history of stricture or varices Pain Management Plan: Parenteral or Oral ASA Class: 4 Other Medical Problems: None Chronic Beta Leyda medication administered within 24 hours: Yes I have interviewed and examined the patient. I have reviewed the medical record and/or the pre-anesthesia evaluation, pertinent labs, and test results. Significant changes in the patient's condition since the History and Physical, not otherwise documented in primary service progress notes: No This contains updated information obtained within 48 hours of Surgery/Procedure. SIGNATURE: Burak Gamez MD PATIENT NAME: Elias Shah DATE: July 04, 2019 TIME: 7:33 AM CSN: [id number] [facility] BRIEF OP NOTon 07-04-2019 BRIEF OP NOT HNO ID: [id number] Author: Jim Castro DO Service: Cardiac Surgery Author Type: Resident Type: Brief Op Note Filed: 07/04/2019 2:35 PM Note Text: Attestation signed by Wayne Rivers at 07/04/2019 4:03 PM Attending Note I evaluated the patient and personally participated in the simmons components. I agree with the resident's findings and plan as documented and have discussed the case and management of the patient's care with the resident. Signature: Wayne Rivers MD Date: 07/04/2019 Time: 4:03 PM BRIEF OPERATIVE / PROCEDURE NOTE LOG ID: [id number] SURGERY/PROCEDURE DATE: 07/04/2019 INCISION/PROCEDURE START TIME: 8:32 AM INCISION CLOSE/PROCEDURE END TIME: 1:40 PM SURGEON(S)/PROCEDURAL IST(S) AND BOX ICER(S): Surgeon(s) and Role: * Wayne Rivers - Primary * Jim Castro DO - Resident - Assisting Physician [employer] Pressing Machine Operator: Aubree Raman (Pa) Repossession Agent: Joellen Rivas SA SURGERY/PROCEDURE(S): Two vessel cardiac bypass [place]> LAD, Vein>ramus, Aortic valve replacement 23mm St Cristhian Trifecta Bioprosthetic Valve, Exclusion of Left atrial appendage, endoscopic vein harvesting ANESTHESIA: General FINDINGS: aortic valve and coronary artery calcifications, Normal EF and prosthetic valve function ESTIMATED BLOOD LOSS: 250 mls SPECIMENS: Aortic valve COMPLICATIONS: None PRE-OP/PRE-PROCEDURE DIAGNOSIS: Aortic Stenosis, Coronary artery disease POST-OP/POST-PROCEDUR E DIAGNOSIS: Nonrheumatic aortic (valve) stenosis [I35.0] Encounter for preprocedural cardiovascular examination [Z01.810] SIGNATURE: Jim Castro DO PATIENT NAME: Elias Shah DATE: July 04, 2019 TIME: 2:06 PM PAGER/CONTACT #: [phone] [facility] CONSULTon 07-04-2019 CONSULT HNO ID: [id number] Author: Bhanu Miranda MD Service: Urology Author Type: Resident Type: Consults Filed: 07/04/2019 7:20 PM Note Text: Attestation signed by Kiran Son at 07/05/2019 2:31 PM I saw and evaluated the patient. Discussed with the resident and agree with resident's findings and plan as documented in the resident's note.`Pts urine zeenat, wean CBI to off, sarkis Son MD Urology Inpatient Consultation 07/04/2019 HISTORY OF PRESENT ILLNESS: The patient is a 79 year old male not previously known to urologic service who presents for CABG. Farley catheter inserted in OR for bloody urine. Urology consulted. Patient currently intubated and sedated. 16F farley catheter difficult to irrigate. Upgraded at bedside to soft 24F 3-way catheter and started on CBI. PAST MEDICAL HISTORY: PAST MEDICAL HISTORY Diagnosis Date - Acute kidney injury (HCC) - Acute metabolic encephalopathy - Anemia - Aortic stenosis - Atrial fibrillation (HCC) - Bowel obstruction (HCC) - Coronary artery disease - Hyperlipidemia - Hypertension - Left bundle branch block - Mitral valve annular calcification - Prolonged QT interval - Vitamin D deficiency PAST SURGICAL HISTORY: PAST SURGICAL HISTORY Procedure Laterality Date - REPAIR UMBILICAL HERNIA 12/04/2018 after bowel perforation done at [facility] Dr. Young ALLERGIES: ALLERGIES No Known Allergies HOME MEDICATIONS: Medications Prior to Admission: tamsulosin ER (FLOMAX) 0.4 mg cap Take 0.4 mg by mouth once daily. Disp: Rfl: 07/03/2019 at Unknown time aspirin 81 mg chewable tablet Take 324 mg by mouth one time only. Disp: Rfl: 07/04/2019 at 0300 Lactobacillus acidophilus/lact (LACTOBACILLUS ACIDOPH-LACTASE ORAL) Take by mouth twice daily. Disp: Rfl: 07/03/2019 at Unknown time amLODIPine (NORVASC) 5 mg tablet Take 5 mg by mouth once daily. Disp: Rfl: 07/03/2019 at Unknown time carvedilol (COREG) 25 mg tablet Take 25 mg by mouth three times daily. Disp: Rfl: 07/04/2019 at 0300 fluticasone (FLONASE ALLERGY RELIEF) 50 mcg/actuation nasal spray Use 1 [place] in each nostril once daily. Disp: Rfl: 07/03/2019 at Unknown time Cholecalciferol, Vitamin D3, 5,000 unit cap Take 5,000 Units by mouth once daily. Disp: Rfl: 07/03/2019 at Unknown time ferrous sulfate 325 mg (65 mg iron) tablet Take 325 mg by mouth daily with breakfast. Disp: Rfl: 07/03/2019 at Unknown time rosuvastatin (CRESTOR) 5 mg tablet Take 5 mg by mouth once daily. Disp: Rfl: 07/03/2019 at Unknown time magnesium, aluminum hydroxide (MYLANTA ORAL) Take by mouth. as needed for indigestion Disp: Rfl: Unknown at Unknown time ondansetron (ZOFRAN) 4 mg tablet Take 4 mg by mouth every 8 hours as needed. Disp: Rfl: Unknown at Unknown time Acetaminophen 500 mg cap Take 2 capsules by mouth twice daily as needed. Disp: Rfl: Unknown at Unknown time loperamide (IMODIUM) 2 mg cap(s) Take 2 mg by mouth once daily. Disp: Rfl: Unknown at Unknown time FAMILY HISTORY: Family History Problem Relation Age of Onset - Osteoporosis Mother - Heart Mother - Cancer Father Social History: Tobacco Use: 1 packs/day, for 5 years. Quit 11/23/1954. Alcohol Use: Yes (social) ROS: Unable to be obtained secondary to intubated and sedated. PHYSICAL EXAM: VITALS: 07/04/19 1800 07/04/19 1815 07/04/19 1830 07/04/19 1845 BP: Pulse: 70 70 70 70 Resp: 16 14 14 16 Temp: SpO2: 100% 100% 100% 100% Weight: Height: General:No acute distress, intubated and sedated Head: Normocephalic, atraumatic Neck: supple, trachea is midline, no obvious masses Respiratory: intubated Cardiovascular: tachycardia Musculoskeletal: sedated Skin: warm and dry Abdomen: soft, non distended, non tender, no organomegaly, no hernias : 24F 3-way catheter inserted for dark red urine, started on CBI DATA: LABS: BMP: . Glucose (mg/dL) Date Value 07/04/2019 90 Potassium (mEq/L) Date Value 07/04/2019 3.9 Sodium (mEq/L) Date Value 07/04/2019 139 Chloride (mEq/L) Date Value 07/04/2019 109 CO2 (mEq/L) Date Value 07/04/2019 24 Creatinine (mg/dL) Date Value 07/04/2019 1.08 BUN (mg/dL) Date Value 07/04/2019 13 Anion Gap (no units) Date Value 07/04/2019 10 Calcium (mg/dL) Date Value 07/04/2019 7.7 CBC: Hemoglobin (g/dL) Date Value 05/20/2019 12.6 HGB (g/dL) Date Value 07/04/2019 8.5 Hematocrit (%) Date Value 07/04/2019 25.9 WBC (thou/cmm) Date Value 07/04/2019 6.65 Platelet Count (thou/cmm) Date Value 07/04/2019 100 Urinalysis: pH, Arterial Date Value Ref Range Status 07/04/2019 7.410 7.350 - 7.450 Final Specific [place], Ur Date Value Ref Range Status 06/27/2019 1.015 1.005 - 1.030 Final Glucose, Urine Date Value Ref Range Status 06/27/2019 NEGATIVE Negative mg/dL Final Bilirubin, Urine Date Value Ref Range Status 06/27/2019 NEGATIVE Negative Final Ketones, Urine Date Value Ref Range Status 06/27/2019 NEGATIVE Negative mg/dL Final Protein, Urine Date Value Ref Range Status 06/27/2019 100 (A) Negative mg/dL Final Urobilinogen, Urine Date Value Ref Range Status 06/27/2019 0.2 0.2 - 1.0 EU/dL Final RADIOLOGY: No new IMPRESSION: 79 year old male with gross hematuria s/p farley catheter insertion during CABG PLAN: - Maintain 24F farley catheter. Titrate CBI to light pink - Irrigate catheter q4h - AMAN suppositories prn for bladder spasms - Monitor Hgb - Hematuria w/up once patient clinically stabilizes - Will follow Thank you for allowing me to participate in the care of your patient Bhanu Miranda MD 07/04/2019 7:07 PM Normal [facility] ECG COMPLETEon 07-04-2019 ECG COMPLETE NAME : ELIAS SHAH PID : [id number] : 1940 Gender : Male Race : ORD : [id number] Procedure Date : Jul 04 2019 15:30:55 Edit Date : Jul 05 2019 08:38:41 Diagnosis:AV dual-paced rhythm with prolonged AV conduction ABNORMAL ECG WHEN COMPARED WITH ECG OF 04-JUL-2019 14:32, VENT. RATE HAS INCREASED BY 6 BPM Confirmed by MD WILKES ANUBHAV ([id number]) on 07/05/2019 8:38:40 AM Ventricular Rate : 76 BPM Atrial Rate : 76 BPM P-R Interval : 368 ms QRS Duration : 38 ms Q-T Interval : 374 ms QTC Calculation(Bazett) : 420 ms R Hammond : 90 degrees T Hammond : -30 degrees Test Reason : Arrhythmia Location : 6 : [place] [address] Overread By : MD WILKES ANUBHAV Edited By : MD WLIKES ANUBHAV Referred By : WAYNE RIVERS Acquired by : ELKE DUMONT [facility] ECG COMPLETE NAME : ELIAS SHAH PID : [id number] : 1940 Gender : Male Race : ORD : [id number] Procedure Date : Jul 04 2019 14:32:24 Edit Date : Jul 05 2019 08:37:21 Diagnosis:Atrial-sens ed ventricular-paced rhythm with prolonged AV conduction ABNORMAL ECG NO PREVIOUS ECGS AVAILABLE Confirmed by MD WILKES ANUBHAV ([id number]) on 07/05/2019 8:37:20 AM Ventricular Rate : 70 BPM Atrial Rate : 70 BPM P-R Interval : 352 ms QRS Duration : 32 ms Q-T Interval : 368 ms QTC Calculation(Bazett) : 397 ms R Hammond : 90 degrees T Hammond : -43 degrees Test Reason : Post-OP Location : 6 : [place] [address] Overread By : MD WILKES ANUBHAV Edited By : MD WILKES ANUBHAV Referred By : WAYNE RIVERS Acquired by : [id number], [facility] HISTORY PHYSICALon 9 HISTORY PHYSICAL HNO ID: [id number] Author: Jim (Luis Enrique Castro DO Service: Cardiac Surgery Author Type: Resident Type: HANDP Filed: 07/04/2019 6:46 AM Note Text: Attestation signed by Wayne Rivers at 07/04/2019 3:37 PM Attending Note I evaluated the patient and personally participated in the simmons components. I agree with the resident's findings and plan as documented and have discussed the case and management of the patient's care with the resident. Recommend MV CABG, AVR with bioprosthesis, and exclusion of left atrial appendage. The risks, benefits, and anticipated outcomes of the procedure; the risks and benefits of the alternatives to the procedure; and the roles and tasks of the personnel to be involved were discussed with the patient and he consents to the procedure and agrees to proceed. Signature: Wayne Rivers MD Date: 07/04/2019 Time: 3:25 PM UPDATED HISTORY AND PHYSICAL EXAMINATION SERVICE DATE: 07/04/2019 SERVICE TIME: 6:45 AM The History and Physical (completed in the past 30 days) has been reviewed and the patient has been examined. The contents accurately reflect the patient's condition with the following additions or revisions since the HANDP was completed. Examination indicates no changes. This HANDP can be found in the Electronic Medical Record dated 06/27/2019. SIGNATURE: Jim Castro DO PATIENT NAME: Elias Shah DATE: July 04, 2019 TIME: 6:45 AM PAGER: [phone] [facility] NURSING PROGon 07-04-2019 NURSING PROG HNO ID: [id number] Author: Stephany (Agusto) AGUSTO Peterson Service: ? Author Type: Registered Nurse Type: Nursing Progress Note Filed: 07/04/2019 6:52 PM Note Text: 1800 Discussed extubation plan with Elke Buckley RT in room. PLan is to complete weaning parameters at 1830. 1830 RT paged to complete weaning paramters. Stephany Peterson RN 1850 RT paged to complete weaning parameters. Stephany Peterson RN [facility] OPERATIVE NOon 07-04-2019 OPERATIVE NO HNO ID: [id number] Author: Wayne Rivers Service: Cardiac Surgery Author Type: Physician Type: Operative Report Filed: 07/05/2019 6:23 PM Note Text: [facility] - Operative Report ELIAS SHAH : 1940 AGE: 79. SEX: M PATIENT TYPE: I HOSP SVC: ORCA LOCATION: [facility] [place] ATTENDING PHYSICIAN: WAYNE RIVERS CSN NUMBER: [id number] DATE OF SURGERY/PROCEDURE: 07/04/2019 INCISION/PROCEDURE START TIME: 8:32 AM INCISION CLOSE/PROCEDURE END TIME: 1:40 PM PREOPERATIVE DIAGNOSIS: Multivessel coronary disease; severe aortic stenosis; paroxysmal atrial fibrillation. POSTOPERATIVE DIAGNOSIS: Multivessel coronary disease; severe aortic stenosis; paroxysmal atrial fibrillation. SURGEON: Wayne Rivers MD BOX ICER: Ms. Raman and Ms. Rivas. SURGERY/PROCEDURE: Aortic valve replacement with a [address] Cristhian Trifecta pericardial prosthesis; coronary artery bypass graft x2 with left internal mammary artery and left anterior descending artery; and reversed saphenous vein graft to the ramus intermedius branch; and exclusion of left atrial appendage with a 35 mm AtriCure clip; endoscopic vein harvesting. ANESTHESIA: Performed under general anesthesia. The cross-clamp time and the perfusion time are per the perfusion record. COMPLICATIONS: There were no complications. FINDINGS: Include the following: Normal PA pressures; on OLIMPIA, a trileaflet, heavily calcified, and severely stenotic aortic valve; moderate LVH; normal left ventricular function; no thrombus in left atrial appendage; normal sinus rhythm. Intraoperatively, a heavily calcified trileaflet aortic valve with severe stenosis; moderate LVH; excellent graft flows on flow probe analysis; small OM branches; postoperative, he had a normally functioning bioprosthesis in the aortic position and normal LV function and excellent graft flows. It should be noted that on OLIMPIA there was no perivalvular leak and the valve leaflets appeared normal. There was a slight regurgitant area situated between leaflets of the left and right cusps of indeterminate etiology. It was very mild, but was noted by Anesthesia on OLIMPIA. SPECIMEN: Included the resected aortic valve. ESTIMATED BLOOD LOSS: 250 cc. We noted preoperative thrombocytopenia and hypofibrinogenemia requiring replacement after surgery with platelets and cryoprecipitate. INDICATIONS: This 79-year-old man presents with symptomatic severe aortic stenosis and was being referred for aortic valve replacement. He had normal LV function. Mean gradients of approximately 50, valve area under 1 cm sq, was considered for TAVR because of previous history of prolonged hospitalization after abdominal surgery. He was found on cardiac catheterization to have significant approximately 70% to 80% proximal LAD lesion which was positive on FFR as well as an eccentric lesion in the ostium of the circumflex artery, which was estimated approximately 80% and also an occluded ramus branch which filled via left to left collaterals. The right coronary was rather small and did not have significant lesions. Left ventricular function was well preserved. He has a history of paroxysmal atrial fibrillation during previous hospitalization, has not been anticoagulated due to history of anemia and guaiac-positive stools in the past. We recommended combined aortic valve replacement and myocardial revascularization. In addition, we recommended exclusion of left atrial appendage. The procedure, the intended benefits, potential complications, and staff indications were discussed at length. All questions were answered. He understood and consented to proceed. DESCRIPTION OF PROCEDURE: A preoperative huddle was performed. He was brought to the operating room, placed on the operating table in supine position. Central venous, pulmonary arterial, and radial artery accesses were obtained. He was given general anesthesia and intubated. A OLIMPIA probe was placed. A Farley catheter was placed. He was prepped and draped sterilely. He received perioperative IV antibiotics, beta-blockade, aspirin, IV heparin. PA catheters were as mentioned in the normal range. OLIMPIA showed the aforementioned findings. A time-out was performed. A median sternotomy was made. The left internal mammary artery was harvested as a skeletonized graft. It had excellent pulsatile flow and simultaneously portions of the left greater saphenous vein were harvested in endoscopic fashion. The harvest sites were closed in layers with absorbable suture. The sternal district traffic chief was placed in the wound. A pericardial well was made. The ascending aorta was free of any palpable atherosclerotic disease. There was moderate LVH. Cardiac structures were shifted somewhat to the right making access to the right atrial appendage somewhat difficult. He was heparinized and cannulated for cardiopulmonary bypass via the aorta and right atrium. After an adequate ACT was achieved, cardiopulmonary bypass was initiated and ventilation was stopped. The aortic root was vented. A retrograde cardioplegia cannula was placed in the coronary sinus. The aortic cross-clamp was applied. The heart was arrested with 1500 cc of combined antegrade and retrograde cold blood cardioplegia and thereafter boluses of cardioplegia were administered every 15 to 20 minutes. The aforementioned distal anastomoses were completed with running 7-0 Prolene suture end- to-side. The LAD and ramus branch were very large vessels and fairly easily grafted to each ends slightly intramyocardial components. The obtuse marginal branches themselves were very small and essentially almost undiscoverable because the large part was intramyocardial as well and we did not feel it was elliott to dice through myocardial trephined these targets as well and so these were left alone. The field was flooded with CO2. A curvilinear aortotomy was made. The aortic valve was exposed. It was trileaflet and heavily calcified. The valve was excised and anulus debrided. The anulus and ventricle were irrigated to remove all debris. The anulus was sized to a 23-mm St. Cristhian Trifecta pericardial prosthesis, sutured in place with 2-0 Ethibond pledgeted sutures with pledgets on the aortic side. The valve seated well and the sutures were tied down by hand and then cut. The aortotomy was closed with running 4-0 Prolene suture in double layer. A single proximal anastomosis was constructed for the vein graft with running 6-0 Prolene suture end-to-side. The left atrial appendage was sized to a 35 mm AtriCure clip which was applied at its base. The aortic cross-clamp was then removed. The heart was defibrillated several times and regained a spontaneous bradycardiac rhythm. Right atrial pacing lead and ground leads were placed through the skin, 2 right ventricular pacing leads were placed through the skin, atrioventricular pacing was initiated. Ventilation was then resumed. The heart was allowed to fill and eject. We then de-aired and then weaned from bypass, decannulated and reversed heparin with protamine. OLIMPIA confirmed normal LV function, normal valve function, and a completely excluded left atrial appendage. Graft flows were excellent on flow probe analysis. Left pleural tube and 2 mediastinal tubes were placed and secured to the skin. Hemostasis was assiduously obtained. The sternum was then closed with wires. Pectoral fascia, subcutaneous tissue, and skin were closed in layers with absorbable suture. Dry sterile dressings were applied. Sponge counts and needle counts were correct. A time-out was then performed and the patient was then returned to CV-ICU in good condition. Wayne Rivers MD JAL:[id number] /[id number] [facility] PROGRESSon 07-04-2019 PROGRESS HNO ID: [id number] Author: Joel (Rn) AGUSTO Resendez Service: Critical Care Author Type: Registered Nurse Type: Progress Notes Filed: 07/04/2019 8:16 PM Note Text: Weaning parameters not met. NIF -12 and pt very drowsy. Dr. Kincaid notified. Plan is to recheck parameters at 2100 and re evaluate for extubation. [facility] PROGRESS HNO ID: [id number] Author: Marlon Dubon Jr. Service: Critical Care Author Type: Physician Type: Progress Notes Filed: 07/04/2019 2:54 PM Note Text: MICU - PROGRESS NOTE SERVICE DATE: July 04, 2019 Admission Date: 07/04/2019 AGE: [age] year old LOS: 0 days Subjective Cc: called to assist with acute postoperative respiratory insufficiency Patient remains sedated from surgery Discussed with RN and primary team History obtained from chart Objective PROBLEMS: ACTIVE PROBLEM LIST Abnormal Electrocardiogram (Ecg) (Ekg) Anemia, Unspecified Aortic Valve Stenosis Atrial Fibrillation With Rapid Ventricular Response (Hcc) Mauro (Acute Kidney Injury) (Hcc) Acute Metabolic Encephalopathy Vitamin D Deficiency Small Bowel Obstruction (Hcc) Paroxysmal Atrial Fibrillation (Hcc) Lbbb (Left Bundle Branch Block) Incarcerated Umbilical Hernia Declining Functional Status Essential Hypertension Hyperlipidemia Impaired Cognition Aortic Stenosis PAST MEDICAL HISTORY Diagnosis Date - Acute kidney injury (HCC) - Acute metabolic encephalopathy - Anemia - Aortic stenosis - Atrial fibrillation (HCC) - Bowel obstruction (HCC) - Coronary artery disease - Hyperlipidemia - Hypertension - Left bundle branch block - Mitral valve annular calcification - Prolonged QT interval - Vitamin D deficiency PAST SURGICAL HISTORY Procedure Laterality Date - REPAIR UMBILICAL HERNIA 12/04/2018 after bowel perforation done at [facility] Dr. Young Social History Socioeconomic History Marital status: Spouse name: Not on file Number of children: Not on file Years of education: Not on file Highest education level: Not on file Occupational History Not on file Social Needs Financial resource strain: Not on file Food insecurity: Worry: Not on file Inability: Not on file Transportation needs: Medical: Not on file Non-medical: Not on file Tobacco Use Smoking status: Former Smoker Packs/day: 1.00 Years: 5.00 Pack years: 5 Quit date: 11/23/1954 Years since quittin.6 Smokeless tobacco: Never Used Substance and Sexual Activity Alcohol use: Yes Comment: social Drug use: Never Sexual activity: Not on file Lifestyle Physical activity: Days per week: Not on file Minutes per session: Not on file Stress: Not on file Relationships Social connections: Talks on phone: Not on file Gets together: Not on file Attends alevism service: Not on file Active member of club or organization: Not on file Attends meetings of clubs or organizations: Not on file Relationship status: Not on file Intimate partner violence: Fear of current or ex partner: Not on file Emotionally abused: Not on file Physically abused: Not on file Forced sexual activity: Not on file Other Topics Concerns: Service: No Blood Transfusions: Yes Caffeine Concern: No Occupational Exposure: Not Asked Hobby Hazards: Not Asked Sleep Concern: No Stress Concern: No Weight Concern: Not Asked Special Diet: No no restrictions Back Care: Not Asked Exercise: No sedentary Bike Helmet: Not Asked Seat Belt: Yes Self-Exams: Not Asked Social History Narrative Not on file VITAL SIGNS (last 24hrs min/max): Temp Av.9 ?C (96.6 ?F) Min: 35.9 ?C (96.6 ?F) Max: 35.9 ?C (96.6 ?F) Pulse Av Min: 60 Max: 80 Arterial BP 1 Min: 128/65 Max: 149/71 Cuff BP Min: 152/106 Max: 152/106 Pain Level: 0 Vital signs reviewed. BP 152/106 Pulse 70 Temp 96.6 Resp 14 Ht 6' 0 (1.83m) Wt 200 lb (90.7kg) SpO2 100% BMI 27.12 kg/(m2). O2 Therapy: Room Air Temp (24hrs), Av.9 ?C (96.6 ?F), Min:35.9 ?C (96.6 ?F), Max:35.9 ?C (96.6 ?F) NET FLUID BALANCE No intake or output data in the 24 hours ending 07/04/19 1438 MEDICATIONS Current Facility-Administered Medications Medication Dose Route Frequency - insulin regular iv infusion 100 units in NaCl 0.9% 100 mL - AK CARD SURG NOMOGRAM 0-12 Units/hr INTRAVENOUS CONTINUOUS - insulin regular human iv bolus 10 Units 10 Units INTRAVENOUS PRN - dextrose 50 % 12.5 g injection 12.5 g INTRAVENOUS PRN - dexmedetomidine 400 mcg in NaCl 0.9% 100 mL (PRECEDEX) 0.2-0.7 mcg/kg/hr INTRAVENOUS CONTINUOUS - potassium chloride iv piggyback 20 mEq/100 mL 20 mEq INTRAVENOUS PRN - magnesium sulfate in water 2 g in sterile water 50 ml 2 g INTRAVENOUS PRN(NO DISPENSE) - acetaminophen 650 mg tab(s) (TYLENOL) 650 mg ORAL q 6 H PRN - NaCl 0.9% iv infusion 50 mL/hr INTRAVENOUS CONTINUOUS - albuterol 2.5 mg /3 mL (0.083 %) 2.5 mg (PROVENTIL) 2.5 mg INHALATION q 2 H PRN - ceFAZolin iv piggyback 2 g in D5W (iso-osmotic) 100 mL (ANCEF) 2 g INTRAVENOUS q 6 HR - ondansetron (PF) 4 mg injection (ZOFRAN) 4 mg INTRAVENOUS q 6 H PRN - midazolam (PF) 2 mg injection (VERSED) 2 mg INTRAVENOUS q 6 H PRN - oxyCODONE-acetaminoph en 5-325 mg 1-2 tablet (PERCOCET) 1-2 tablet ORAL q 4 H PRN - morphine 2-4 mg injection 2-4 mg INTRAVENOUS q 1 H PRN - nitroglycerin 100 mg in D5W 250 mL 5-200 mcg/min INTRAVENOUS CONTINUOUS - albumin (25%) 25 g infusion 25 g INTRAVENOUS PRN Lines, Drains, and Airways Line Arterial Line 07/04/19 Arterial Line Left Radial less than 1 day Central Line Quadruple Lumen 07/04/19 Pulmonary Artery Catheter Right Neck less than 1 day Peripheral 07/04/19 Assessment Short Right Hand 18 Gauge less than 1 day Drain Indwelling Urinary Catheter 07/04/19 Assessment Temperature Monitoring 16 Fr less than 1 day Airway Airway Endotracheal Tube 07/04/19 1100 less than 1 day PHYSICAL EXAM PERFORMED: General: no acute distress Cardiovascular: Regular rhythm - paced Respiratory: Clear to auscultation Abdomen: Soft and Nontender Extremities: Edema- No Neurologic: sedated Respiratory/Nursing Documentation: O2 Therapy: Room Air (07/04/19 0650) HEMODYNAMIC DATA: Reviewed DATA: Diagnostic tests reviewed for today's visit, films/specimens were personally reviewed by me: Most recent labs and imaging results. LABS: Recent Labs 07/04/19 1239 HCT 22* NA 140 K 3.7 ABG: Recent Labs 07/04/19 1410 07/04/19 1239 07/04/19 1200 PH 7.410 7.401 7.407 PO2 127.0* 470.0* 345.0* PCO2 35.6 -- -- CXR - atelectasis/elevation of L diaphragm Assessment/Plan IMPRESSION: Critical Care Documentation: The patient has the following organ/system impairment(s): acute post operative respiratory insufficiency 1. CAD, CABG x 2 2. Aortic stenosis s/p AVR 3. Prolonged QT 4. Paced rhythm, LBBB 5. HTN 6. PAF 7. Recent bowel obstruction 8. 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 Chronic elevated LEFT diaphragm 10. Thrombocytopenia 11. Hematuria MMP CRITICAL CARE PLAN: Ventilatory support until more awake - no barriers to extubation within post op window Fibrinogen and platelets and urology consult for hematuria Pacing per primary service Follow electrolytes in post operative period This patient has a high probability of sudden, clinically significant deterioration, which requires the highest level of physician preparedness to intervene urgently. I managed/supervised life or organ supporting interventions that required frequent physician assessment. I devoted my full attention to the direct care of this patient for the amount of time indicated below. Time I spent with family or surrogate(s) is included only if the patient was incapable of providing the necessary information or participating in medical decision making. Time devoted to teaching is not included. Discussed with staff/patient Time spent providing critical care services: 40 minutes excluding procedures. SIGNATURE: Marlon Dubon Jr, MD PATIENT NAME: Elias Shah DATE: July 04, 2019 TIME: 2:38 PM Normal [facility] CONSULT PROGon 06-28-2019 CONSULT PROG HNO ID: [id number] Author: Helena Bacon Service: Cardiac Surgery Author Type: Nurse Practitioner Type: Consult Progress Note Filed: 06/28/2019 2:39 PM Note Text: CTVS Surgery Pre-Op Open Heart Check List Patient Info: Elias Shah 1940 79 year old Patient has no known allergies. HPI: Elias Shah is a 79 year old male who presents for presurgical testing and evaluation prior to CABG/AVR. Mr. Carreno was referred to Dr Rivers for consideration of TAVR, however during workup he was found to have significant coronary artery disease necessitating surgical aortic valve replacement and coronary artery bypass grafting. ? His past medical history is significant for aortic stenosis, prolonged QT, Mitral Annular Calcification, LBBB, hypertension, hyper lipids, paroxysmal atrial fibrillation, coronary artery disease, recent bowel obstruction and prolonged hospitalization following bowel surgery which was complicated by acute on chronic kidney disease, anemia, encephalopathy. 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 Last set of vitals: BP 152/78 (BP Site: Left Arm) Pulse 63 Resp 20 Ht 6' (1.829 m) Wt 200 lb (90.7 kg) SpO2 95% BMI 27.12 kg/m? Wt: 197 lb (89.4 kg) BMI: 26.72 kg/(m2) Procedure: CABG/AVR Diagnosis: and CAD Date of Procedure: 07/04/2019 STS Risk Score: 2.42% CABG/AVR CARE TEAM: Cardiac Surgeon: Carlitos Layboy Tender: Primo PCP: Regla Other Providers: Pre-Op Testing: LABS: CHEMISTRY Sodium Date Value 06/27/2019 139 mEq/L 05/20/2019 138 mmol/L Chloride Date Value 06/27/2019 104 mEq/L 05/20/2019 102 mmol/L CO2 Date Value 06/27/2019 29 mEq/L 05/20/2019 29 mmol/L BUN (mg/dL) Date Value 06/27/2019 15 05/20/2019 15 Creatinine (mg/dL) Date Value 06/27/2019 1.17 05/20/2019 1.13 04/22/2019 1.18 Glucose (mg/dL) Date Value 06/27/2019 95 05/20/2019 111 Magnesium (mg/dL) Date Value 06/27/2019 2.1 Protein, Total (g/dL) Date Value 06/27/2019 7.5 Calcium (mg/dL) Date Value 06/27/2019 8.8 05/20/2019 9.3 Bilirubin, Total (mg/dL) Date Value 06/27/2019 0.5 Alkaline Phosphatase (U/L) Date Value 06/27/2019 76 ALT (U/L) Date Value 06/27/2019 15 AST (U/L) Date Value 06/27/2019 14 Anion Gap Date Value 06/27/2019 10 05/20/2019 7 mmol/L { Lipid Panel No results found for: CHOL, HDL, LDL, TG NT Pro BNP NT Pro BNP Date Value Ref Range Status 06/27/2019 1,414 pg/ml Final Comment: Note new reference range: Normal Reference Range: Patients <75 yrs old <125pg/ml Patients >=75 yrs old <450 pg/ml ENDOCRINE Hemoglobin A1C (%) Date Value 06/27/2019 5.6 TSH Date Value Ref Range Status 06/27/2019 2.500 0.358 - 3.740 uIU/mL Final HEMATOLOGY RBC Date Value 06/27/2019 4.30 mil/cmm 05/20/2019 4.24 m/uL Hemoglobin (g/dL) Date Value 05/20/2019 12.6 HGB (g/dL) Date Value 06/27/2019 12.7 Hematocrit (%) Date Value 06/27/2019 39.2 05/20/2019 39.3 WBC Date Value 06/27/2019 4.86 thou/cmm 05/20/2019 5.16 k/uL Platelet Count Date Value 06/27/2019 154 thou/cmm 05/20/2019 182 k/uL COAGULATION Prothrombin Time Date Value Ref Range Status 06/27/2019 10.6 9.7 - 13.0 sec Final INR Date Value Ref Range Status 06/27/2019 1.02 0.90 - 1.30 Final Comment: Vitamin K Antagonist (VKA) Therapeutic Range: INR 2 to 3 (Target INR of 2.5) Note: For patients treated with VKA drugs, such as warfarin, the [employer] 2012 Guideline recommends a therapeutic INR range of 2 to 3 (target INR of 2.5). This recommendation includes high-risk patients with antiphospholipid syndrome with previous arterial or venous thromboembolism, current-generation mechanical or bioprosthetic aortic heart valve replacement. VKA Therapeutic Range for some Mechanical Valve Replacement: INR 2.5 to 3.5 (Target INR of 3) Note: Patients with mechanical aortic valve replacement and additional risk factors for thromboembolic events (atrial fibrillation, previous thromboembolism, LV dysfunction, hypercoagulable conditions) or an older generation mechanical AVR (i.e., ball in-Cage) or any mechanical MVR should have a INR therapeutic range of 2.5 to 3.5 target INR of 3). Barrington GH, et al. Chest 2012; 141:7S-47S Maria Victoria ORTIZ et al. [facility] 2017; 70: 252-289 Anemia Evaluation: Anemic: Yes Accept Blood: Yes Blood Conservation Committee: No Ferritin: N/A FE+TIBC: N/A Fe Sat: N/A FOBT: N/A Anemia Treatment: Oral Iron UA pH, Urine Date Value Ref Range Status 06/27/2019 6.0 5.0 - 8.0 Final Specific [place], Ur Date Value Ref Range Status 06/27/2019 1.015 1.005 - 1.030 Final Glucose, Urine Date Value Ref Range Status 06/27/2019 NEGATIVE Negative mg/dL Final Bilirubin, Urine Date Value Ref Range Status 06/27/2019 NEGATIVE Negative Final Ketones, Urine Date Value Ref Range Status 06/27/2019 NEGATIVE Negative mg/dL Final Protein, Urine Date Value Ref Range Status 06/27/2019 100 (A) Negative mg/dL Final Leukocytes Esterase Date Value Ref Range Status 06/27/2019 NEGATIVE Negative Final Bacteria, Urine Date Value Ref Range Status 06/27/2019 NONE None Final Type AND Screen: Ref Range AND Units 1d ago ABO Group O RH Type Positive Antibody Screen NEGATIVE NEGATIVE Blood Bank Comment PAT specimen RBC Cross match: 2 units for DOS MRSA Screen: Pending, mupirocin x 5 days Chronic Lung Disease: No FEVI: N/A. DLCO: N/A ABG: N/A VIVIANA: No IMAGING/PROCEDURES CXR: IMPRESSION: No acute radiographic abnormality. Cardiac Catheterization: + + DIAGNOSTIC FINDINGS + + Coronary Anatomy: Left Dominant Injection Site(s): Coronary Artery LMT: - The LMT has mild diffuse disease. LAD: - The proximal LAD is narrowed 70 % - severe diffuse disease.The FFR is 0.80. ?Additional Comment: Large vessel with severe eccentric proximal disease. ? LCX: - The proximal circumflex is narrowed 80 % - ostial and focal disease. - The 1st lateral obtuse marginal circumflex is narrowed 100 % - severe diffuse ? disease and collaterals. ?Additional Comment: Large dominant vessel with eccentric proximal disease genesis has severe forcal calcified stenosis on IVUS evaluation. The first OM/Ramus is occluded and fills via left to left collaterals. ? RAMUS: - Ramus Status: Not Applicable. RCA: - The RCA has mild diffuse disease. + + HEMODYNAMICS + + General: LV ?197.00/15.00 ASC AO ? ? ?122.00/59.00 ASC AO Mean 83.00 Valve Gradients: Condition # Baseline Valve ? ? ? Aortic Peak ?60.00 ? + + IMPRESSION/PLAN + + Impression: Severe disease of the LAD and proximal dominant LCx and first OM branch with severe aortic stenosis Recommended Treatment: CABG and Aortic surgery. 2D Echo: EF: 60% FINDINGS: ? LEFT VENTRICLE The left ventricle is normal in size. Left ventricular systolic function is normal. Grade II left ventricular diastolic dysfunction. Mitral annular lateral E/e': 21.5. Mitral annular septal E/e': 21.5. Wall Motion: All scored segments are normal. ? ? RIGHT VENTRICLE The right ventricle is normal in size. Right ventricular systolic function is normal. Estimated right ventricular systolic pressure is not reported due to an insufficient tricuspid regurgitation signal. Estimated right atrial pressure is 3 mmHg based on IVC assessment. ? LEFT ATRIUM The left atrial cavity is mildly dilated. Pulmonary Veins: The pulmonary venous pattern showed blunted systolic flow. RIGHT ATRIUM Unable to reliably measure RA volume due to technical limitations. Inferior Vena Cava: The inferior vena cava appears normal measuring 1.0 cm. The vessel decreases greater than 50 percent with inspiration. MITRAL VALVE There is mild mitral annular calcification observed anterior and posterior. There is trace mitral valve regurgitation. The pressure half time is 58 msec. The peak mitral E/A ratio is 1.90. The average mitral E/e' ratio is 21.5. The mitral flow deceleration time is 199 msec. ? TRICUSPID VALVE The tricuspid valve was not seen or not interrogated. There is trace tricuspid valve regurgitation. ? AORTIC VALVE There is severe aortic valve stenosis caused by calcified valve. There is trace aortic valve regurgitation. There is severe thickening. There is severe calcification. The peak gradient is 76 mmHg (peak velocity = 434.5 cm/s). The mean ?gradient is 48 mmHg. The LVOT mean velocity is 54.6 cm/s. The LVOT diameter is 2.0 cm. The aortic VTI is 117.4 cm. The mean velocity in the aortic valve is 337.0 ?cm/s. The dimensionless valve index is 0.17. AV area is 0.56 cm? (0.26 cm?/m?) by ?continuity, VTI. The LVOT stroke volume index is 31 ml/m?. ? PULMONIC VALVE The pulmonic valve was not seen or not interrogated. ? AORTA The visualized aorta is normal in size. Measurements - Sinus 3.1 cm. Sinotubular junction 2.7 cm. Mid ascending aorta 3.5 cm. PULMONARY ARTERIES The pulmonary arteries are unseen or not interrogated. ? PERICARDIUM There is no pericardial effusion. There is an epicardial fat pad. ? CONCLUSIONS: - Technically difficult exam due to body habitus. - Exam indication: Aortic valve disorder - The left ventricle is normal in size. Left ventricular systolic function is normal. EF = 60 ? 5% (2D 4-ch.) Grade II left ventricular diastolic dysfunction. - The right ventricle is normal in size. Right ventricular systolic function is normal. Right ventricular systolic function is normal on limited views. - The left atrial cavity is mildly dilated. - There is severe aortic valve stenosis caused by calcified valve. AV area is 0.56 ?cm? (0.26 cm?/m?) by continuity, VTI. The peak gradient is 76 mmHg, the mean gradient is 48 mmHg and the dimensionless valve index is 0.17. - Definity contrast could not be administered d/t unavailability of staff. - The patient has not had a prior CC echocardiographic exam for comparison. 5 Meter Walk Test: 1. 8 sec 2. 7.3 sec 3. 7.2 sec OPTIONAL TESTINGS: Carotid U/S: IMPRESSION ? RIGHT SIDE ? Internal carotid artery: 20-39% stenosis. ? Vertebral artery: Patent and antegrade flow noted. ? Subclavian artery: Plaque visualized without evidence of hemodynamically significant stenosis. ? LEFT SIDE ? Common carotid artery: Plaque visualized without evidence of hemodynamically significant stenosis. ? Internal carotid artery: 20-39% stenosis. ? Vertebral artery: Patent and antegrade flow noted. Lower EXT ANN:N/A Palmar Arch:N/A Vein Mapping: N/A Dental Clearance: Edentulous CT Chest: IMPRESSION: 1. ?Trileaflet, mild to moderately calcified aortic valve with severe aortic stenosis. ?Details of anatomy and calcification are described above. 2. ?Normal thoracic and abdominal aorta. ?No acute aortic pathology. 3. ?The pelvic arteries, including the common femoral arteries are normal in course, caliber, and contour. ?The minimal luminal caliber throughout = 0.6 cm. 4. ? The cardiovascular structures (with the exception of the right ventricular myocardium, which lies 7 mm behind the sternum) lie a safe distance from the sternum (>1 cm), as scribed above. 5. ? there is a simple cyst of the left lobe of the liver. ?This requires no further follow-up. ?There is enlargement of the prostate. ?There is a right inguinal hernia containing only mesenteric fat with no evidence of any bowel entrapment or obstruction. ?There are some areas of atelectasis and chronic interstitial lung disease in the chest. ?No other significant chest, abdominal, or pelvic abnormalities identified on CT angiography. The cardiac portion of the study was interpreted by Dr. Luigi Lee from the Cardiology Department, and the noncardiac portion was interpreted by Dr. Bartholomew from Radiology. Medications: Blood thinners: Patient is on following blood thinners: Aspirin -Yes, dose 81 mg, stopped No Beta Leyda: Last dose of beta leyda taken: CArvedilol 25 mg daily VANESSA/ARB: Stop 24 hours preop No Steroids: No Chronic Immunosuppressive drugs: No Implantable Device: No Turned off date: Perioperative Transfusion risk STS Risk Factors: Advanced age Yes Preoperative anemia Yes Non-CABG surgery Yes Preoperative anticoagulation No Clotting abnormalities No Female gender No Small body habitus No Renal insufficiency Yes IDDM No Sepsis No Liver disease No Post-operative Wound Healing - Vest recommended Yes (Yes to any one of the below requires a post thorax vest) Risk Factors: Obesity Yes DM No Renal Dx Yes COPD No Bilateral FCO No CONSIDER PRAVENA: No CLEARANCES NEEDED Pulmonary: No Hematology: No Nephrology No Vascular surgery No Other No Helena Bacon APRN.CNP Normal [facility] CNOVon 06-27-2019 CNOV Office Visit (AGVASACC) ELIAS SHAH ([id number]) 1940 M Date Time Provider Department 06/27/19 1:00 PM HELENA BACON During your visit today, we recorded the following information about you: Pulse Respiration Blood pressure Weight 63/minute 20/minute 152/78 90.7 kg Height 1.829 m Helena Bacon APRN.CNP 06/28/2019 1:42 PM Addendum CARDIOTHORACIC SURGERY CONSULT / HANDP SERVICE DATE: 06/27/2019 SERVICE TIME: 13:00 Subjective PRIMARY SERVICE: Cardiothoracic Surgery CHIEF COMPLAINT: /CAD HPI: Elias Shah is a 79 year old male who presents for presurgical testing and evaluation prior to CABG/AVR. Mr. Carreno was referred to Dr Rivers for consideration of TAVR, however during workup he was found to have significant coronary artery disease necessitating surgical aortic valve replacement and coronary artery bypass grafting. His past medical history is significant for aortic stenosis, prolonged QT, Mitral Annular Calcification, LBBB, hypertension, hyper lipids, paroxysmal atrial fibrillation, coronary artery disease, recent bowel obstruction and prolonged hospitalization following bowel surgery which was complicated by acute on chronic kidney disease, anemia, encephalopathy. 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 Patient is Able to Perform the Following Physical Activity: Walk a block or two on level ground (2.75 METs) Patient has the following medical comorbidities which might affect the perioperative course: - Atrial fibrillation, History of, rate well controlled and is not anticoagulated due to Normal sinus rhythm. - CAD of the [place] vessel. No interventions. Stable with no angina at rest or exertion.. - CKD, Stage 1, due to unknown cause. - Hypertension, uncontrolled but NO change in medication as patient did not take medications today. PAST MEDICAL HISTORY Diagnosis Date - Acute kidney injury (HCC) - Acute metabolic encephalopathy - Anemia - Aortic stenosis - Atrial fibrillation (HCC) - Bowel obstruction (HCC) - Coronary artery disease - Hyperlipidemia - Hypertension - Left bundle branch block - Mitral valve annular calcification - Prolonged QT interval - Vitamin D deficiency PAST SURGICAL HISTORY Procedure Laterality Date - REPAIR UMBILICAL HERNIA 12/04/2018 after bowel perforation done at [facility] Dr. Young FAMILY HISTORY Problem Relation Age of Onset - Osteoporosis Mother - Heart Mother - Cancer Father Social History Tobacco Use - Smoking status: Former Smoker Packs/day: 1.00 Years: 5.00 Pack years: 5.00 Last attempt to quit: 11/23/1954 Years since quittin.6 - Smokeless tobacco: Never Used Substance Use Topics - Alcohol use: Yes Comment: social - Drug use: Never (Not in a hospital admission) aspirin 81 mg chewable tablet Take 324 mg by mouth one time only. ondansetron (ZOFRAN) 4 mg tablet Take 4 mg by mouth every 8 hours as needed. perflutren lipid microspheres (DEFINITY) 1.1 mg/mL injection (to be provided with echo procedure) Inject 1.3 mL intravenously as directed. perflutren lipid microspheres (DEFINITY) 1.1 mg/mL injection (to be provided with echo procedure) Inject 1.3 mL intravenously as directed. Lactobacillus acidophilus/lact (LACTOBACILLUS ACIDOPH-LACTASE ORAL) Take by mouth twice daily. Acetaminophen 500 mg cap Take 2 capsules by mouth twice daily as needed. amLODIPine (NORVASC) 5 mg tablet Take 5 mg by mouth once daily. carvedilol (COREG) 25 mg tablet Take 25 mg by mouth three times daily. fluticasone (FLONASE ALLERGY RELIEF) 50 mcg/actuation nasal spray Use 1 [place] in each nostril once daily. loperamide (IMODIUM) 2 mg cap(s) Take 2 mg by mouth once daily. Cholecalciferol, Vitamin D3, 5,000 unit cap Take 5,000 Units by mouth once daily. ferrous sulfate 325 mg (65 mg iron) tablet Take 325 mg by mouth daily with breakfast. rosuvastatin (CRESTOR) 5 mg tablet Take 5 mg by mouth once daily. ALLERGIES No Known Allergies REVIEW OF SYSTEMS: GENERAL: No weight loss, malaise or fevers RESPIRATORY: Negative for cough, wheezing or shortness of breath. CARDIOVASCULAR: Positive for chest pain on exertion Described as tightness across his chest : No history of dysuria, frequency or incontinence MUSCULOSKELETAL: Negative for joint pain or swelling, back pain or muscle pain. SKIN: Negative for lesions, rash, and itching. PSYCH: Negative for sleep disturbance, mood disorder and recent psychosocial stressors. HEMATOLOGY/LYMPHOLOGY Negative for prolonged bleeding, bruising easily or swollen nodes. ENDOCRINE: Negative for cold or heat intolerance, polyuria, polydipsia and goiter. NEURO: No history of headaches, syncope, paralysis, seizures or tremors All other systems reviewed and negative Objective PHYSICAL EXAM: BP 152/78 (BP Site: Left Arm) Pulse 63 Resp 20 Ht 6' (1.829 m) Wt 200 lb (90.7 kg) SpO2 95% BMI 27.12 kg/m? Body surface area is 2.15 meters squared. General Appearance: well developed and no distress Skin: warm and dry Neck: no carotid bruits Lungs: clear and respiratory effort: normal Heart: S1, S2 normal and murmur 3/6 best heard right sternal border, harsh systolic, does not radiate Peripheral Vascular/Arteries: pulses intact Abdomen: soft, round, non-tender and bowel sounds present Neurologic/Psychiatri c: oriented to time, place and person Extremities: normal exam of the extremities and edema: non-pitting Lines, Drains, and Airways None DATA: Diagnostic tests reviewed for today's visit: Cardiac Catheterization: Coronary Anatomy: Left Dominant Injection Site(s): Coronary Artery LMT: - The LMT has mild diffuse disease. LAD: - The proximal LAD is narrowed 70 % - severe diffuse disease.The FFR is 0.80. ?Additional Comment: Large vessel with severe eccentric proximal disease. ? LCX: - The proximal circumflex is narrowed 80 % - ostial and focal disease. - The 1st lateral obtuse marginal circumflex is narrowed 100 % - severe diffuse ? disease and collaterals. ?Additional Comment: Large dominant vessel with eccentric proximal disease shich has severe forcal calcified stenosis on IVUS evaluation. The first OM/Ramus is occluded and fills via left to left collaterals. ? RAMUS: - Ramus Status: Not Applicable. RCA: - The RCA has mild diffuse disease. + + HEMODYNAMICS + + General: LV ?197.00/15.00 ASC AO ? ? ?122.00/59.00 ASC AO Mean 83.00 Valve Gradients: Condition # Baseline Valve ? ? ? Aortic Peak ?60.00 ? + + IMPRESSION/PLAN + + Impression: Severe disease of the LAD and proximal dominant LCx and first OM branch with severe aortic stenosis Recommended Treatment: CABG and Aortic surgery. Plan: CABG-AVR Chest CT Scan: IMPRESSION: 1. ?Trileaflet, mild to moderately calcified aortic valve with severe aortic stenosis. ?Details of anatomy and calcification are described above. 2. ?Normal thoracic and abdominal aorta. ?No acute aortic pathology. 3. ?The pelvic arteries, including the common femoral arteries are normal in course, caliber, and contour. ?The minimal luminal caliber throughout = 0.6 cm. 4. ? The cardiovascular structures (with the exception of the right ventricular myocardium, which lies 7 mm behind the sternum) lie a safe distance from the sternum (>1 cm), as scribed above. 5. ? there is a simple cyst of the left lobe of the liver. ?This requires no further follow-up. ?There is enlargement of the prostate. ?There is a right inguinal hernia containing only mesenteric fat with no evidence of any bowel entrapment or obstruction. ?There are some areas of atelectasis and chronic interstitial lung disease in the chest. ?No other significant chest, abdominal, or pelvic abnormalities identified on CT angiography. The cardiac portion of the study was interpreted by Dr. Luigi Lee from the Cardiology Department, and the noncardiac portion was interpreted by Dr. Bartholomew from Radiology. Chest X-RAY: ECHO: FINDINGS: ? LEFT VENTRICLE The left ventricle is normal in size. Left ventricular systolic function is normal. Grade II left ventricular diastolic dysfunction. Mitral annular lateral E/e': 21.5. Mitral annular septal E/e': 21.5. Wall Motion: All scored segments are normal. ? ? RIGHT VENTRICLE The right ventricle is normal in size. Right ventricular systolic function is normal. Estimated right ventricular systolic pressure is not reported due to an insufficient tricuspid regurgitation signal. Estimated right atrial pressure is 3 mmHg based on IVC assessment. ? LEFT ATRIUM The left atrial cavity is mildly dilated. Pulmonary Veins: The pulmonary venous pattern showed blunted systolic flow. RIGHT ATRIUM Unable to reliably measure RA volume due to technical limitations. Inferior Vena Cava: The inferior vena cava appears normal measuring 1.0 cm. The vessel decreases greater than 50 percent with inspiration. MITRAL VALVE There is mild mitral annular calcification observed anterior and posterior. There is trace mitral valve regurgitation. The pressure half time is 58 msec. The peak mitral E/A ratio is 1.90. The average mitral E/e' ratio is 21.5. The mitral flow deceleration time is 199 msec. ? TRICUSPID VALVE The tricuspid valve was not seen or not interrogated. There is trace tricuspid valve regurgitation. ? AORTIC VALVE There is severe aortic valve stenosis caused by calcified valve. There is trace aortic valve regurgitation. There is severe thickening. There is severe calcification. The peak gradient is 76 mmHg (peak velocity = 434.5 cm/s). The mean ?gradient is 48 mmHg. The LVOT mean velocity is 54.6 cm/s. The LVOT diameter is 2.0 cm. The aortic VTI is 117.4 cm. The mean velocity in the aortic valve is 337.0 ?cm/s. The dimensionless valve index is 0.17. AV area is 0.56 cm? (0.26 cm?/m?) by ?continuity, VTI. The LVOT stroke volume index is 31 ml/m?. ? PULMONIC VALVE The pulmonic valve was not seen or not interrogated. ? AORTA The visualized aorta is normal in size. Measurements - Sinus 3.1 cm. Sinotubular junction 2.7 cm. Mid ascending aorta 3.5 cm. PULMONARY ARTERIES The pulmonary arteries are unseen or not interrogated. ? PERICARDIUM There is no pericardial effusion. There is an epicardial fat pad. ? CONCLUSIONS: - Technically difficult exam due to body habitus. - Exam indication: Aortic valve disorder - The left ventricle is normal in size. Left ventricular systolic function is normal. EF = 60 ? 5% (2D 4-ch.) Grade II left ventricular diastolic dysfunction. - The right ventricle is normal in size. Right ventricular systolic function is normal. Right ventricular systolic function is normal on limited views. - The left atrial cavity is mildly dilated. - There is severe aortic valve stenosis caused by calcified valve. AV area is 0.56 ?cm? (0.26 cm?/m?) by continuity, VTI. The peak gradient is 76 mmHg, the mean gradient is 48 mmHg and the dimensionless valve index is 0.17. - Definity contrast could not be administered d/t unavailability of staff. - The patient has not had a prior CC echocardiographic exam for comparison. U/S bilateral Carotid: RIGHT SIDE ? Internal carotid artery: 20-39% stenosis. ? Vertebral artery: Patent and antegrade flow noted. ? Subclavian artery: Plaque visualized without evidence of hemodynamically significant stenosis. ? LEFT SIDE ? Common carotid artery: Plaque visualized without evidence of hemodynamically significant stenosis. ? Internal carotid artery: 20-39% stenosis. ? Vertebral artery: Patent and antegrade flow noted. Assessment/Plan ASSESSMENT/PLAN: 1. Aortic valve stenosis, etiology of cardiac valve disease unspecified - ICD9: 424.1, ICD10: I35.0 (primary diagnosis) 2. Coronary artery disease involving emmonak heart, angina presence unspecified, unspecified vessel or lesion type - ICD9: 414.01, ICD10: I25.10 -Planned combined CABG aVR on 07/04/[address] Rivers -Risk score 2.42% 3. Anemia, unspecified type - ICD9: 285.9, ICD10: D64.9 -Acute blood loss anemia following strangulated hernia surgery -Improved in April, repeat CBC is pending today 4. Atrial fibrillation with rapid ventricular response (HCC) - ICD9: 427.31, ICD10: I48.91 -RRR in office today -Not anticoagulated currently 5. MAURO (acute kidney injury) (HCC) - ICD9: 584.9, ICD10: N17.9 -Following strangulated hernia repair surgery in November -Serum creatinine in April was 1.13, repeat is pending today Helena Bacon APRN.CNP Tests/Labs Ordered: 1. CBC 2. CMP 3. HbA1c (average sugar test) 4. Lipids 5. Urinalysis 6. MRSA 7. Incentive spirometry 8. PT/INR 9. Magnesium These findings will be communicated back to the requesting provider electronically. SIGNATURE: Helena Bacon APRN.CNP PATIENT NAME: Elias Shah DATE: June 27, 2019 TIME: 10:51 AM PAGER/CONTACT #: [phone] Helena Bacon APRN.CNP 06/27/2019 2:06 PM Addendum [facility] Pre-Admission Patient Instruction You are scheduled for surgery (Outpatient/Inpatient ) located on the 2nd Floor on: 07/04/2019 Please report to the 2nd Floor Surgical Waiting Area at: 06:00 AM Do not stop at front entrance registration. Come in the Front Doors / Main Entrance 1. Do not eat or drink anything, including water and coffee, after 11:59 PM on the night before your surgery. This is important because if you do, your surgery may have to be cancelled. Eat a light supper the evening before surgery or follow specific doctor's instructions. 2. Oral hygiene and a shower or bath is required the evening before or the morning of surgery. Use the Hibiclens body wash supplied to you today. 3. Do not chew gum the morning of surgery. 4. Notify your doctor if you develop a cold, sore throat, fever or other changes in your physical condition. 5. No alcohol 24 hours before or after surgery and refrain from smoking the morning of surgery and immediately following surgery. 6. Leave valuables such as rings, watches and money at home. Remove all make-up and nail monegasque before admission. We need to check your circulation. Remove jewelry from all piercings, tongue included, as no metal can go into surgery. 7. Wear loose, comfortable clothing that will accommodate bandages. 8. You will be asked to remove glasses and contacts prior to surgery. Please bring a case. 9. Your length of stay will be determined by your surgeon and the anesthesiologist. 10. Two family members (excluding children under age 13) may stay with you the day of surgery on site. On the morning of surgery, they will be instructed on how to download an jo to their smart phone to receive updates through your surgery. 11. Please bring a list of any medication you are taking including dose and the condition for which you are being treated. Day of surgery medications: ? Aspirin 81 mg take daily and the morning of surgery with a small sip of water ? Beta leyda: Carvedilol 25 mg and take the morning of surgery with a small sip of water ? Mupirocin ointment: Please use a pea sized amount on a q-tip to apply inside your nose twice daily for five days prior to and including the morning of surgery. Start 06/27/2019 Helena Bacon, DAMAGE ADJUSTER.TENNIS COACH June 27, 2019 Helena Bacon APRN.TENNIS COACH 06/27/2019 2:23 PM Signed [facility]iac Surgery Database Version 2.9 RISK SCORES Procedure: AVR + CAB Risk of Mortality: 2.422% Renal Failure: 2.127% Permanent Stroke: 1.782% Prolonged Ventilation: 8.378% DSW Infection: 0.164% Reoperation: 4.895% Morbidity or Mortality: 14.596% Short Length of Stay: 24.719% Long Length of Stay: 7.222% Referring Provider: SELF [[id number]] Allergies As of Date: 06/27/2019 (No Known Allergies) Date Reviewed: 06/27/2019 Reviewed by: Brook (Ama) Zahra - Fully Assessed Reason for Visit: Pre-Op Teaching [134] Cmt: sched for CABG / AVR on 07/04/19 Reason For Visit History Recorded Primary Visit Diagnosis:Aortic valve stenosis, etiology of cardiac valve disease unspecified [I35.0] Other Visit Diagnoses:Coronary artery disease involving emmonak heart, angina presence unspecified, unspecified vessel or lesion type [I25.10] Anemia, unspecified type [D64.9] Atrial fibrillation with rapid ventricular response (HCC) [I48.91] MAURO (acute kidney injury) (HCC) [N17.9] Order(s):mupirocin (BACTROBAN) 2 % ointmentApply 1 application to affected area twice daily for 5 days. Start 06/28/2019 include morning of surgery.Disp: 1 TubeRfl: 0 Prescriptions as of 06/27/2019 Sig: MYLANTA ORAL Take by mouth. as needed for * TAMSULOSIN 0.4 MG CAPSULE Take 0.4 mg by mouth once basilio* ONDANSETRON HCL 4 MG TABLET Take 4 mg by mouth every 8 ho* LACTOBACILLUS ACIDOPH-LACTASE* Take by mouth twice daily. ACETAMINOPHEN 500 MG CAPSULE Take 2 capsules by mouth twic* AMLODIPINE 5 MG TABLET Take 5 mg by mouth once daily. CARVEDILOL 25 MG TABLET Take 25 mg by mouth three ridge* FLONASE ALLERGY RELIEF 50 MCG* Use 1 [place] in each nostril o* LOPERAMIDE 2 MG CAPSULE Take 2 mg by mouth once daily. CHOLECALCIFEROL (VITAMIN D3) * Take 5,000 Units by mouth onc* FERROUS SULFATE 325 MG (65 MG* Take 325 mg by mouth daily wi* ROSUVASTATIN 5 MG TABLET Take 5 mg by mouth once daily. MUPIROCIN 2 % TOPICAL OINTMENT Apply 1 application to affect* ASPIRIN 81 MG CHEWABLE TABLET Take 324 mg by mouth one time* Problem List As Of Date 06/27/2019 Noted Resolved Abnormal electrocardiogram (ECG) (EKG) [R94.31] INVALID FOR* Anemia, unspecified [D64.9] INVALID FOR* Aortic valve stenosis [I35.0] INVALID FOR* Atrial fibrillation with rapid ventricular resp*INVALID FOR* MAURO (acute kidney injury) (HCC) [N17.9] INVALID FOR* Acute metabolic encephalopathy [G93.41] INVALID FOR* Vitamin D deficiency [E55.9] INVALID FOR* Small bowel obstruction (HCC) [K56.609] INVALID FOR* Paroxysmal atrial fibrillation (HCC) [I48.0] INVALID FOR* LBBB (left bundle branch block) [I44.7] INVALID FOR* Incarcerated umbilical hernia [K42.0] INVALID FOR* Declining functional status [R53.81] INVALID FOR* Essential hypertension [I10] INVALID FOR* Hyperlipidemia [E78.5] INVALID FOR* Impaired cognition [R41.89] INVALID FOR* Other instructions from your clinician: [facility] Pre-Admission Patient Instruction You are scheduled for surgery (Outpatient/Inpatient ) located on the 2nd Floor on: 07/04/2019 Please report to the 2nd Floor Surgical Waiting Area at: 06:00 AM Do not stop at front entrance registration. Come in the Front Doors / Main Entrance 1. Do not eat or drink anything, including water and coffee, after 11:59 PM on the night before your surgery. This is important because if you do, your surgery may have to be cancelled. Eat a light supper the evening before surgery or follow specific doctor's instructions. 2. Oral hygiene and a shower or bath is required the evening before or the morning of surgery. Use the Hibiclens body wash supplied to you today. 3. Do not chew gum the morning of surgery. 4. Notify your doctor if you develop a cold, sore throat, fever or other changes in your physical condition. 5. No alcohol 24 hours before or after surgery and refrain from smoking the morning of surgery and immediately following surgery. 6. Leave valuables such as rings, watches and money at home. Remove all make-up and nail monegasque before admission. We need to check your circulation. Remove jewelry from all piercings, tongue included, as no metal can go into surgery. 7. Wear loose, comfortable clothing that will accommodate bandages. 8. You will be asked to remove glasses and contacts prior to surgery. Please bring a case. 9. Your length of stay will be determined by your surgeon and the anesthesiologist. 10. Two family members (excluding children under age 13) may stay with you the day of surgery on site. On the morning of surgery, they will be instructed on how to download an jo to their smart phone to receive updates through your surgery. 11. Please bring a list of any medication you are taking including dose and the condition for which you are being treated. Day of surgery medications: ? Aspirin 81 mg take daily and the morning of surgery with a small sip of water ? Beta leyda: Carvedilol 25 mg and take the morning of surgery with a small sip of water ? Mupirocin ointment: Please use a pea sized amount on a q-tip to apply inside your nose twice daily for five days prior to and including the morning of surgery. Start 06/27/2019 Helena Bacon APRN.CNP June 27, 2019 Prescriptions ordered this encounter Disp Refills Start End MUPIROCIN 2 % TOPICAL OINTMENT 1 Tu* 0 06/28/2019 07/03/2019 Class: Print RX Route: TOPICAL Sig: Apply 1 application to affected area twice daily for 5 days. Start 06/28/2019 include morning of surgery. Medications Discontinued During This Encounter perflutren lipid microspheres (DEFIN* 1.3 * 0 05/11/2019 06/27/2019 Class: In Office Route: INTRAVENOUS Sig: Inject 1.3 mL intravenously as directed. Disc: Reason for discontinue is not on file. perflutren lipid microspheres (DEFIN* 1.3 * 0 05/11/2019 06/27/2019 Class: In Office Route: INTRAVENOUS Sig: Inject 1.3 mL intravenously as directed. Disc: Course of therapy completed Encounter Status:Closed by HELENA BACON CNP on 06/27/19 [facility] HISTORY PHYSICALon 9 HISTORY PHYSICAL HNO ID: [id number] Author: Helena Bacon Service: ? Author Type: Nurse Practitioner Type: HANDP Filed: 06/28/2019 1:42 PM Note Text: CARDIOTHORACIC SURGERY CONSULT / HANDP SERVICE DATE: 06/27/2019 SERVICE TIME: 13:00 Subjective PRIMARY SERVICE: Cardiothoracic Surgery CHIEF COMPLAINT: /CAD HPI: Elias Shah is a 79 year old male who presents for presurgical testing and evaluation prior to CABG/AVR. Mr. Carreno was referred to Dr Rivers for consideration of TAVR, however during workup he was found to have significant coronary artery disease necessitating surgical aortic valve replacement and coronary artery bypass grafting. His past medical history is significant for aortic stenosis, prolonged QT, Mitral Annular Calcification, LBBB, hypertension, hyper lipids, paroxysmal atrial fibrillation, coronary artery disease, recent bowel obstruction and prolonged hospitalization following bowel surgery which was complicated by acute on chronic kidney disease, anemia, encephalopathy. 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 Patient is Able to Perform the Following Physical Activity: Walk a block or two on level ground (2.75 METs) Patient has the following medical comorbidities which might affect the perioperative course: - Atrial fibrillation, History of, rate well controlled and is not anticoagulated due to Normal sinus rhythm. - CAD of the emmonak vessel. No interventions. Stable with no angina at rest or exertion.. - CKD, Stage 1, due to unknown cause. - Hypertension, uncontrolled but NO change in medication as patient did not take medications today. PAST MEDICAL HISTORY Diagnosis Date - Acute kidney injury (HCC) - Acute metabolic encephalopathy - Anemia - Aortic stenosis - Atrial fibrillation (HCC) - Bowel obstruction (HCC) - Coronary artery disease - Hyperlipidemia - Hypertension - Left bundle branch block - Mitral valve annular calcification - Prolonged QT interval - Vitamin D deficiency PAST SURGICAL HISTORY Procedure Laterality Date - REPAIR UMBILICAL HERNIA 12/04/2018 after bowel perforation done at [facility] Dr. Young FAMILY HISTORY Problem Relation Age of Onset - Osteoporosis Mother - Heart Mother - Cancer Father Social History Tobacco Use - Smoking status: Former Smoker Packs/day: 1.00 Years: 5.00 Pack years: 5.00 Last attempt to quit: 11/23/1954 Years since quittin.6 - Smokeless tobacco: Never Used Substance Use Topics - Alcohol use: Yes Comment: social - Drug use: Never (Not in a hospital admission) aspirin 81 mg chewable tablet Take 324 mg by mouth one time only. ondansetron (ZOFRAN) 4 mg tablet Take 4 mg by mouth every 8 hours as needed. perflutren lipid microspheres (DEFINITY) 1.1 mg/mL injection (to be provided with echo procedure) Inject 1.3 mL intravenously as directed. perflutren lipid microspheres (DEFINITY) 1.1 mg/mL injection (to be provided with echo procedure) Inject 1.3 mL intravenously as directed. Lactobacillus acidophilus/lact (LACTOBACILLUS ACIDOPH-LACTASE ORAL) Take by mouth twice daily. Acetaminophen 500 mg cap Take 2 capsules by mouth twice daily as needed. amLODIPine (NORVASC) 5 mg tablet Take 5 mg by mouth once daily. carvedilol (COREG) 25 mg tablet Take 25 mg by mouth three times daily. fluticasone (FLONASE ALLERGY RELIEF) 50 mcg/actuation nasal spray Use 1 [place] in each nostril once daily. loperamide (IMODIUM) 2 mg cap(s) Take 2 mg by mouth once daily. Cholecalciferol, Vitamin D3, 5,000 unit cap Take 5,000 Units by mouth once daily. ferrous sulfate 325 mg (65 mg iron) tablet Take 325 mg by mouth daily with breakfast. rosuvastatin (CRESTOR) 5 mg tablet Take 5 mg by mouth once daily. ALLERGIES No Known Allergies REVIEW OF SYSTEMS: GENERAL: No weight loss, malaise or fevers RESPIRATORY: Negative for cough, wheezing or shortness of breath. CARDIOVASCULAR: Positive for chest pain on exertion Described as tightness across his chest : No history of dysuria, frequency or incontinence MUSCULOSKELETAL: Negative for joint pain or swelling, back pain or muscle pain. SKIN: Negative for lesions, rash, and itching. PSYCH: Negative for sleep disturbance, mood disorder and recent psychosocial stressors. HEMATOLOGY/LYMPHOLOGY Negative for prolonged bleeding, bruising easily or swollen nodes. ENDOCRINE: Negative for cold or heat intolerance, polyuria, polydipsia and goiter. NEURO: No history of headaches, syncope, paralysis, seizures or tremors All other systems reviewed and negative Objective PHYSICAL EXAM: BP 152/78 (BP Site: Left Arm) Pulse 63 Resp 20 Ht 6' (1.829 m) Wt 200 lb (90.7 kg) SpO2 95% BMI 27.12 kg/m? Body surface area is 2.15 meters squared. General Appearance: well developed and no distress Skin: warm and dry Neck: no carotid bruits Lungs: clear and respiratory effort: normal Heart: S1, S2 normal and murmur 3/6 best heard right sternal border, harsh systolic, does not radiate Peripheral Vascular/Arteries: pulses intact Abdomen: soft, round, non-tender and bowel sounds present Neurologic/Psychiatri c: oriented to time, place and person Extremities: normal exam of the extremities and edema: non-pitting Lines, Drains, and Airways None DATA: Diagnostic tests reviewed for today's visit: Cardiac Catheterization: Coronary Anatomy: Left Dominant Injection Site(s): Coronary Artery LMT: - The LMT has mild diffuse disease. LAD: - The proximal LAD is narrowed 70 % - severe diffuse disease.The FFR is 0.80. ?Additional Comment: Large vessel with severe eccentric proximal disease. ? LCX: - The proximal circumflex is narrowed 80 % - ostial and focal disease. - The 1st lateral obtuse marginal circumflex is narrowed 100 % - severe diffuse ? disease and collaterals. ?Additional Comment: Large dominant vessel with eccentric proximal disease shich has severe forcal calcified stenosis on IVUS evaluation. The first OM/Ramus is occluded and fills via left to left collaterals. ? RAMUS: - Ramus Status: Not Applicable. RCA: - The RCA has mild diffuse disease. + + HEMODYNAMICS + + General: LV ?197.00/15.00 ASC AO ? ? ?122.00/59.00 ASC AO Mean 83.00 Valve Gradients: Condition # Baseline Valve ? ? ? Aortic Peak ?60.00 ? + + IMPRESSION/PLAN + + Impression: Severe disease of the LAD and proximal dominant LCx and first OM branch with severe aortic stenosis Recommended Treatment: CABG and Aortic surgery. Plan: CABG-AVR Chest CT Scan: IMPRESSION: 1. ?Trileaflet, mild to moderately calcified aortic valve with severe aortic stenosis. ?Details of anatomy and calcification are described above. 2. ?Normal thoracic and abdominal aorta. ?No acute aortic pathology. 3. ?The pelvic arteries, including the common femoral arteries are normal in course, caliber, and contour. ?The minimal luminal caliber throughout = 0.6 cm. 4. ? The cardiovascular structures (with the exception of the right ventricular myocardium, which lies 7 mm behind the sternum) lie a safe distance from the sternum (>1 cm), as scribed above. 5. ? there is a simple cyst of the left lobe of the liver. ?This requires no further follow-up. ?There is enlargement of the prostate. ?There is a right inguinal hernia containing only mesenteric fat with no evidence of any bowel entrapment or obstruction. ?There are some areas of atelectasis and chronic interstitial lung disease in the chest. ?No other significant chest, abdominal, or pelvic abnormalities identified on CT angiography. The cardiac portion of the study was interpreted by Dr. Luigi Lee from the Cardiology Department, and the noncardiac portion was interpreted by Dr. Bartholomew from Radiology. Chest X-RAY: ECHO: FINDINGS: ? LEFT VENTRICLE The left ventricle is normal in size. Left ventricular systolic function is normal. Grade II left ventricular diastolic dysfunction. Mitral annular lateral E/e': 21.5. Mitral annular septal E/e': 21.5. Wall Motion: All scored segments are normal. ? ? RIGHT VENTRICLE The right ventricle is normal in size. Right ventricular systolic function is normal. Estimated right ventricular systolic pressure is not reported due to an insufficient tricuspid regurgitation signal. Estimated right atrial pressure is 3 mmHg based on IVC assessment. ? LEFT ATRIUM The left atrial cavity is mildly dilated. Pulmonary Veins: The pulmonary venous pattern showed blunted systolic flow. RIGHT ATRIUM Unable to reliably measure RA volume due to technical limitations. Inferior Vena Cava: The inferior vena cava appears normal measuring 1.0 cm. The vessel decreases greater than 50 percent with inspiration. MITRAL VALVE There is mild mitral annular calcification observed anterior and posterior. There is trace mitral valve regurgitation. The pressure half time is 58 msec. The peak mitral E/A ratio is 1.90. The average mitral E/e' ratio is 21.5. The mitral flow deceleration time is 199 msec. ? TRICUSPID VALVE The tricuspid valve was not seen or not interrogated. There is trace tricuspid valve regurgitation. ? AORTIC VALVE There is severe aortic valve stenosis caused by calcified valve. There is trace aortic valve regurgitation. There is severe thickening. There is severe calcification. The peak gradient is 76 mmHg (peak velocity = 434.5 cm/s). The mean ?gradient is 48 mmHg. The LVOT mean velocity is 54.6 cm/s. The LVOT diameter is 2.0 cm. The aortic VTI is 117.4 cm. The mean velocity in the aortic valve is 337.0 ?cm/s. The dimensionless valve index is 0.17. AV area is 0.56 cm? (0.26 cm?/m?) by ?continuity, VTI. The LVOT stroke volume index is 31 ml/m?. ? PULMONIC VALVE The pulmonic valve was not seen or not interrogated. ? AORTA The visualized aorta is normal in size. Measurements - Sinus 3.1 cm. Sinotubular junction 2.7 cm. Mid ascending aorta 3.5 cm. PULMONARY ARTERIES The pulmonary arteries are unseen or not interrogated. ? PERICARDIUM There is no pericardial effusion. There is an epicardial fat pad. ? CONCLUSIONS: - Technically difficult exam due to body habitus. - Exam indication: Aortic valve disorder - The left ventricle is normal in size. Left ventricular systolic function is normal. EF = 60 ? 5% (2D 4-ch.) Grade II left ventricular diastolic dysfunction. - The right ventricle is normal in size. Right ventricular systolic function is normal. Right ventricular systolic function is normal on limited views. - The left atrial cavity is mildly dilated. - There is severe aortic valve stenosis caused by calcified valve. AV area is 0.56 ?cm? (0.26 cm?/m?) by continuity, VTI. The peak gradient is 76 mmHg, the mean gradient is 48 mmHg and the dimensionless valve index is 0.17. - Definity contrast could not be administered d/t unavailability of staff. - The patient has not had a prior CC echocardiographic exam for comparison. U/S bilateral Carotid: RIGHT SIDE ? Internal carotid artery: 20-39% stenosis. ? Vertebral artery: Patent and antegrade flow noted. ? Subclavian artery: Plaque visualized without evidence of hemodynamically significant stenosis. ? LEFT SIDE ? Common carotid artery: Plaque visualized without evidence of hemodynamically significant stenosis. ? Internal carotid artery: 20-39% stenosis. ? Vertebral artery: Patent and antegrade flow noted. Assessment/Plan ASSESSMENT/PLAN: 1. Aortic valve stenosis, etiology of cardiac valve disease unspecified - ICD9: 424.1, ICD10: I35.0 (primary diagnosis) 2. Coronary artery disease involving emmonak heart, angina presence unspecified, unspecified vessel or lesion type - ICD9: 414.01, ICD10: I25.10 -Planned combined CABG aVR on 07/04/[address] Rivers -Risk score 2.42% 3. Anemia, unspecified type - ICD9: 285.9, ICD10: D64.9 -Acute blood loss anemia following strangulated hernia surgery -Improved in April, repeat CBC is pending today 4. Atrial fibrillation with rapid ventricular response (HCC) - ICD9: 427.31, ICD10: I48.91 -RRR in office today -Not anticoagulated currently 5. MAURO (acute kidney injury) (HCC) - ICD9: 584.9, ICD10: N17.9 -Following strangulated hernia repair surgery in November -Serum creatinine in April was 1.13, repeat is pending today Helena Bacon APRN.TENNIS COACH Tests/Labs Ordered: 1. CBC 2. CMP 3. HbA1c (average sugar test) 4. Lipids 5. Urinalysis 6. MRSA 7. Incentive spirometry 8. PT/INR 9. Magnesium These findings will be communicated back to the requesting provider electronically. SIGNATURE: Helena Bacon APRN.TENNIS COACH PATIENT NAME: Elias Shah DATE: June 27, 2019 TIME: 10:51 AM PAGER/CONTACT #: [phone] [facility] PROGRESSon 06-27-2019 PROGRESS HNO ID: [id number] Author: Helena Bacon Service: ? Author Type: Nurse Practitioner Type: Progress Notes Filed: 06/27/2019 2:23 PM Note Text: [facility] Adult Cardiac Surgery Database Version 2.9 RISK SCORES Procedure: AVR + CAB Risk of Mortality: 2.422% Renal Failure: 2.127% Permanent Stroke: 1.782% Prolonged Ventilation: 8.378% DSW Infection: 0.164% Reoperation: 4.895% Morbidity or Mortality: 14.596% Short Length of Stay: 24.719% Long Length of Stay: 7.222% [facility] 06-20-2019 KEEN Telephone (AGVASACC) ELIAS SHAH ([id number]) 1940 M Date Time Provider Department 06/20/19 HELENA BACON During your visit today, we recorded the following information about you: Ludivina Lawson 06/20/2019 10:55 AM Signed Patient's sister Helena called in because the patient is scheduled for a presurgical appointment on 06/21/19. She is upset because they wanted to do all of that on 06/27/19 when they come see Helena (which we have no record of) The patient comes from [place] and they don't want to Make two trips to [place] for the same reason. Helena is not understanding what is going on and she's frustrated and would like to speak with Helena at [phone] Helena Bacon APRN.TENNIS COACH 06/20/2019 11:09 AM Signed I called and spoke to Mrs Enriquez. They do not need to come to the appointment on 06/21. That was scheduled in anticipation of TAVR. Mr Shah is not a TAVR candidate. He need CABG/AVR. This is scheduled 07/04. He has a PAT appointment with nc 06/27 at 1 pm. She verbalized understanding and agreed to this plan. Helena Bacon APRN.TENNIS COACH Allergies As of Date: 06/20/2019 (No Known Allergies) Date Reviewed: 05/25/2019 Reviewed by: Quinn (Rn) AGUSTO Rodrigues - Fully Assessed Reason for Visit: Question [1327] Reason For Visit History Recorded Prescriptions as of 06/20/2019 Sig: ASPIRIN 81 MG CHEWABLE TABLET Take 324 mg by mouth one time* ONDANSETRON HCL 4 MG TABLET Take 4 mg by mouth every 8 ho* PERFLUTREN LIPID MICROSPHERES* Inject 1.3 mL intravenously a* PERFLUTREN LIPID MICROSPHERES* Inject 1.3 mL intravenously a* LACTOBACILLUS ACIDOPH-LACTASE* Take by mouth twice daily. ACETAMINOPHEN 500 MG CAPSULE Take 2 capsules by mouth twic* AMLODIPINE 5 MG TABLET Take 5 mg by mouth once daily. CARVEDILOL 25 MG TABLET Take 25 mg by mouth three ridge* FLUTICASONE PROPIONATE 50 MCG* Use 1 [place] in each nostril o* LOPERAMIDE 2 MG CAPSULE Take 2 mg by mouth once daily. CHOLECALCIFEROL (VITAMIN D3) * Take 5,000 Units by mouth onc* FERROUS SULFATE 325 MG (65 MG* Take 325 mg by mouth daily wi* ROSUVASTATIN 5 MG TABLET Take 5 mg by mouth once daily. Problem List As Of Date 06/20/2019 Noted Resolved Abnormal electrocardiogram (ECG) (EKG) [R94.31] INVALID FOR* Anemia, unspecified [D64.9] INVALID FOR* Aortic valve stenosis [I35.0] INVALID FOR* Atrial fibrillation with rapid ventricular resp*INVALID FOR* MAURO (acute kidney injury) (HCC) [N17.9] INVALID FOR* Acute metabolic encephalopathy [G93.41] INVALID FOR* Vitamin D deficiency [E55.9] INVALID FOR* Small bowel obstruction (HCC) [K56.609] INVALID FOR* Paroxysmal atrial fibrillation (HCC) [I48.0] INVALID FOR* LBBB (left bundle branch block) [I44.7] INVALID FOR* Incarcerated umbilical hernia [K42.0] INVALID FOR* Declining functional status [R53.81] INVALID FOR* Essential hypertension [I10] INVALID FOR* Hyperlipidemia [E78.5] INVALID FOR* Impaired cognition [R41.89] INVALID FOR* Encounter Status:Closed by LUDIVINA LAWSON on 06/20/19 [facility] 06-15-2019 [facility] Telephone ([employer]) ELIAS SHAH ([id number]) 1940 M Date Time Provider Department 06/15/19 WAYNE RIVERS During your visit today, we recorded the following information about you: Lesley Santana 06/16/2019 8:38 AM Signed I have scheduled the patient for Coronary Artery Bypass Graft / Aortic Valve Repair on 07/04/19 at 7:30 am with an arrival time of 6 am PAT is 06/27/19 with Helena at 1 pm No hold on Aspirin. Booklet mailed on 06/16/19 Allergies As of Date: 06/15/2019 (No Known Allergies) Date Reviewed: 05/25/2019 Reviewed by: Quinn Shaikh) AGUSTO Rodrigues - Fully Assessed Reason for Visit: Schedule Surgery [1330] Order(s):SURGICAL REQUEST - ELECTIVE [[id number]] Order #: [id number]: 1 Prescriptions as of 06/15/2019 Sig: ASPIRIN 81 MG CHEWABLE TABLET Take 324 mg by mouth one time* ONDANSETRON HCL 4 MG TABLET Take 4 mg by mouth every 8 ho* PERFLUTREN LIPID MICROSPHERES* Inject 1.3 mL intravenously a* PERFLUTREN LIPID MICROSPHERES* Inject 1.3 mL intravenously a* LACTOBACILLUS ACIDOPH-LACTASE* Take by mouth twice daily. ACETAMINOPHEN 500 MG CAPSULE Take 2 capsules by mouth twic* AMLODIPINE 5 MG TABLET Take 5 mg by mouth once daily. CARVEDILOL 25 MG TABLET Take 25 mg by mouth three ridge* FLUTICASONE PROPIONATE 50 MCG* Use 1 [place] in each nostril o* LOPERAMIDE 2 MG CAPSULE Take 2 mg by mouth once daily. CHOLECALCIFEROL (VITAMIN D3) * Take 5,000 Units by mouth onc* FERROUS SULFATE 325 MG (65 MG* Take 325 mg by mouth daily wi* ROSUVASTATIN 5 MG TABLET Take 5 mg by mouth once daily. Problem List As Of Date 06/15/2019 Noted Resolved Abnormal electrocardiogram (ECG) (EKG) [R94.31] INVALID FOR* Anemia, unspecified [D64.9] INVALID FOR* Aortic valve stenosis [I35.0] INVALID FOR* Atrial fibrillation with rapid ventricular resp*INVALID FOR* MAURO (acute kidney injury) (HCC) [N17.9] INVALID FOR* Acute metabolic encephalopathy [G93.41] INVALID FOR* Vitamin D deficiency [E55.9] INVALID FOR* Small bowel obstruction (HCC) [K56.609] INVALID FOR* Paroxysmal atrial fibrillation (HCC) [I48.0] INVALID FOR* LBBB (left bundle branch block) [I44.7] INVALID FOR* Incarcerated umbilical hernia [K42.0] INVALID FOR* Declining functional status [R53.81] INVALID FOR* Essential hypertension [I10] INVALID FOR* Hyperlipidemia [E78.5] INVALID FOR* Impaired cognition [R41.89] INVALID FOR* Encounter Status:Closed by LESLEY SANTANA on 06/16/19 [facility] 06-15-2019 HOSP Patient:Manav Shah rd MRN: Height:6' 0(1.829 m) Weight:200 lb (90.719 kg) Outpatient Medications as of 07/04/19: magnesium, aluminum hydroxide (MYLANTA ORAL) tamsulosin ER (FLOMAX) 0.4 mg cap aspirin 81 mg chewable tablet ondansetron (ZOFRAN) 4 mg tablet Lactobacillus acidophilus/lact (LACTOBACILLUS ACIDOPH-LACTASE ORAL) Acetaminophen 500 mg cap amLODIPine (NORVASC) 5 mg tablet carvedilol (COREG) 25 mg tablet fluticasone (FLONASE ALLERGY RELIEF) 50 mcg/actuation nasal spray loperamide (IMODIUM) 2 mg cap(s) Cholecalciferol, Vitamin D3, 5,000 unit cap ferrous sulfate 325 mg (65 mg iron) tablet rosuvastatin (CRESTOR) 5 mg tablet Admission/Clinic Administered Medications as of 07/04/19: ceFAZolin iv piggyback 2 g in D5W (iso-osmotic) 100 mL (ANCEF) vancomycin iv piggyback 1 g in D5W 200 mL (VANCOCIN) heparin 3,000 Units in NaCl 0.9% 500 mL irrigation PHENYLephrine 20 mg in NaCl 0.9% 250 mL (ASHANTI-SYNEPHRINE) aminocaproic acid 10 g in NaCl 0.9% 250 mL (AMicAR) dexmedetomidine 400 mcg in NaCl 0.9% 100 mL (PRECEDEX) EPINEPHrine 4 mg in NaCl 0.9% 250 mL insulin regular iv infusion 100 units in NaCl 0.9% 100 mL - AK CARD SURG NOMOGRAM nitroglycerin 100 mg in D5W 250 mL NORepinephrine 16 mg in NaCl 0.9% 250 mL (LEVOPHED) PHENYLephrine iv infusion 10 mg in NaCl 0.9% 250 mL (ASHANTI-SYNEPHRINE) dextrose 50 g, insulin regular human 10 Units, potassium chloride 80 mEq, lidocaine (PF) 20 mg/mL (2 %) 100 mg, magnesium sulfate 4 g in electrolyte-a (PLASMA-LYTE A) 1,000 mL solution dextrose 25 g, insulin regular human 5 Units, potassium chloride 20 mEq, lidocaine (PF) 20 mg/mL (2 %) 50 mg, magnesium sulfate 2 g in electrolyte-a (PLASMA-LYTE A) 500 mL solution Problem List: Abnormal electrocardiogram (ECG) (EKG) [R94.31] Anemia, unspecified [D64.9] Aortic valve stenosis [I35.0] Atrial fibrillation with rapid ventricular response (HCC) [I48.91] MAURO (acute kidney injury) (HCC) [N17.9] Acute metabolic encephalopathy [G93.41] Vitamin D deficiency [E55.9] Small bowel obstruction (HCC) [K56.609] Paroxysmal atrial fibrillation (HCC) [I48.0] LBBB (left bundle branch block) [I44.7] Incarcerated umbilical hernia [K42.0] Declining functional status [R53.81] Essential hypertension [I10] Hyperlipidemia [E78.5] Impaired cognition [R41.89] Allergies: No Known Allergies Date Verified:07/04/19 Lab Values Lab Value Units Date High Low POTA* 4.2 mEq/L 06/27/2019 5.1 3.5 VANGIE* 39.2 % 06/27/2019 51.0 40.1 Progress Notes (JALYN AG CTVS): Helena Bacon APRN.TENNIS COACH 06/28/2019 1:42 PM Addendum CARDIOTHORACIC SURGERY CONSULT / HANDP SERVICE DATE: 06/27/2019 SERVICE TIME: 13:00 Subjective PRIMARY SERVICE: Cardiothoracic Surgery CHIEF COMPLAINT: /CAD HPI: Elias Shah is a 79 year old male who presents for presurgical testing and evaluation prior to CABG/AVR. Mr. Carreno was referred to Dr Rivers for consideration of TAVR, however during workup he was found to have significant coronary artery disease necessitating surgical aortic valve replacement and coronary artery bypass grafting. His past medical history is significant for aortic stenosis, prolonged QT, Mitral Annular Calcification, LBBB, hypertension, hyper lipids, paroxysmal atrial fibrillation, coronary artery disease, recent bowel obstruction and prolonged hospitalization following bowel surgery which was complicated by acute on chronic kidney disease, anemia, encephalopathy. 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 Patient is Able to Perform the Following Physical Activity: Walk a block or two on level ground (2.75 METs) Patient has the following medical comorbidities which might affect the perioperative course: - Atrial fibrillation, History of, rate well controlled and is not anticoagulated due to Normal sinus rhythm. - CAD of the emmonak vessel. No interventions. Stable with no angina at rest or exertion.. - CKD, Stage 1, due to unknown cause. - Hypertension, uncontrolled but NO change in medication as patient did not take medications today. PAST MEDICAL HISTORY Diagnosis Date - Acute kidney injury (HCC) - Acute metabolic encephalopathy - Anemia - Aortic stenosis - Atrial fibrillation (HCC) - Bowel obstruction (HCC) - Coronary artery disease - Hyperlipidemia - Hypertension - Left bundle branch block - Mitral valve annular calcification - Prolonged QT interval - Vitamin D deficiency PAST SURGICAL HISTORY Procedure Laterality Date - REPAIR UMBILICAL HERNIA 12/04/2018 after bowel perforation done at [facility] Dr. Young FAMILY HISTORY Problem Relation Age of Onset - Osteoporosis Mother - Heart Mother - Cancer Father Social History Tobacco Use - Smoking status: Former Smoker Packs/day: 1.00 Years: 5.00 Pack years: 5.00 Last attempt to quit: 11/23/1954 Years since quittin.6 - Smokeless tobacco: Never Used Substance Use Topics - Alcohol use: Yes Comment: social - Drug use: Never (Not in a hospital admission) aspirin 81 mg chewable tablet Take 324 mg by mouth one time only. ondansetron (ZOFRAN) 4 mg tablet Take 4 mg by mouth every 8 hours as needed. perflutren lipid microspheres (DEFINITY) 1.1 mg/mL injection (to be provided with echo procedure) Inject 1.3 mL intravenously as directed. perflutren lipid microspheres (DEFINITY) 1.1 mg/mL injection (to be provided with echo procedure) Inject 1.3 mL intravenously as directed. Lactobacillus acidophilus/lact (LACTOBACILLUS ACIDOPH-LACTASE ORAL) Take by mouth twice daily. Acetaminophen 500 mg cap Take 2 capsules by mouth twice daily as needed. amLODIPine (NORVASC) 5 mg tablet Take 5 mg by mouth once daily. carvedilol (COREG) 25 mg tablet Take 25 mg by mouth three times daily. fluticasone (FLONASE ALLERGY RELIEF) 50 mcg/actuation nasal spray Use 1 [place] in each nostril once daily. loperamide (IMODIUM) 2 mg cap(s) Take 2 mg by mouth once daily. Cholecalciferol, Vitamin D3, 5,000 unit cap Take 5,000 Units by mouth once daily. ferrous sulfate 325 mg (65 mg iron) tablet Take 325 mg by mouth daily with breakfast. rosuvastatin (CRESTOR) 5 mg tablet Take 5 mg by mouth once daily. ALLERGIES No Known Allergies REVIEW OF SYSTEMS: GENERAL: No weight loss, malaise or fevers RESPIRATORY: Negative for cough, wheezing or shortness of breath. CARDIOVASCULAR: Positive for chest pain on exertion Described as tightness across his chest : No history of dysuria, frequency or incontinence MUSCULOSKELETAL: Negative for joint pain or swelling, back pain or muscle pain. SKIN: Negative for lesions, rash, and itching. PSYCH: Negative for sleep disturbance, mood disorder and recent psychosocial stressors. HEMATOLOGY/LYMPHOLOGY Negative for prolonged bleeding, bruising easily or swollen nodes. ENDOCRINE: Negative for cold or heat intolerance, polyuria, polydipsia and goiter. NEURO: No history of headaches, syncope, paralysis, seizures or tremors All other systems reviewed and negative Objective PHYSICAL EXAM: BP 152/78 (BP Site: Left Arm) Pulse 63 Resp 20 Ht 6' (1.829 m) Wt 200 lb (90.7 kg) SpO2 95% BMI 27.12 kg/m? Body surface area is 2.15 meters squared. General Appearance: well developed and no distress Skin: warm and dry Neck: no carotid bruits Lungs: clear and respiratory effort: normal Heart: S1, S2 normal and murmur 3/6 best heard right sternal border, harsh systolic, does not radiate Peripheral Vascular/Arteries: pulses intact Abdomen: soft, round, non-tender and bowel sounds present Neurologic/Psychiatri c: oriented to time, place and person Extremities: normal exam of the extremities and edema: non-pitting Lines, Drains, and Airways None DATA: Diagnostic tests reviewed for today's visit: Cardiac Catheterization: Coronary Anatomy: Left Dominant Injection Site(s): Coronary Artery LMT: - The LMT has mild diffuse disease. LAD: - The proximal LAD is narrowed 70 % - severe diffuse disease.The FFR is 0.80. ?Additional Comment: Large vessel with severe eccentric proximal disease. ? LCX: - The proximal circumflex is narrowed 80 % - ostial and focal disease. - The 1st lateral obtuse marginal circumflex is narrowed 100 % - severe diffuse ? disease and collaterals. ?Additional Comment: Large dominant vessel with eccentric proximal disease shich has severe forcal calcified stenosis on IVUS evaluation. The first OM/Ramus is occluded and fills via left to left collaterals. ? RAMUS: - Ramus Status: Not Applicable. RCA: - The RCA has mild diffuse disease. + + HEMODYNAMICS + + General: LV ?197.00/15.00 ASC AO ? ? ?122.00/59.00 ASC AO Mean 83.00 Valve Gradients: Condition # Baseline Valve ? ? ? Aortic Peak ?60.00 ? + + IMPRESSION/PLAN + + Impression: Severe disease of the LAD and proximal dominant LCx and first OM branch with severe aortic stenosis Recommended Treatment: CABG and Aortic surgery. Plan: CABG-AVR Chest CT Scan: IMPRESSION: 1. ?Trileaflet, mild to moderately calcified aortic valve with severe aortic stenosis. ?Details of anatomy and calcification are described above. 2. ?Normal thoracic and abdominal aorta. ?No acute aortic pathology. 3. ?The pelvic arteries, including the common femoral arteries are normal in course, caliber, and contour. ?The minimal luminal caliber throughout = 0.6 cm. 4. ? The cardiovascular structures (with the exception of the right ventricular myocardium, which lies 7 mm behind the sternum) lie a safe distance from the sternum (>1 cm), as scribed above. 5. ? there is a simple cyst of the left lobe of the liver. ?This requires no further follow-up. ?There is enlargement of the prostate. ?There is a right inguinal hernia containing only mesenteric fat with no evidence of any bowel entrapment or obstruction. ?There are some areas of atelectasis and chronic interstitial lung disease in the chest. ?No other significant chest, abdominal, or pelvic abnormalities identified on CT angiography. The cardiac portion of the study was interpreted by Dr. Luigi Lee from the Cardiology Department, and the noncardiac portion was interpreted by Dr. Bartholomew from Radiology. Chest X-RAY: ECHO: FINDINGS: ? LEFT VENTRICLE The left ventricle is normal in size. Left ventricular systolic function is normal. Grade II left ventricular diastolic dysfunction. Mitral annular lateral E/e': 21.5. Mitral annular septal E/e': 21.5. Wall Motion: All scored segments are normal. ? ? RIGHT VENTRICLE The right ventricle is normal in size. Right ventricular systolic function is normal. Estimated right ventricular systolic pressure is not reported due to an insufficient tricuspid regurgitation signal. Estimated right atrial pressure is 3 mmHg based on IVC assessment. ? LEFT ATRIUM The left atrial cavity is mildly dilated. Pulmonary Veins: The pulmonary venous pattern showed blunted systolic flow. RIGHT ATRIUM Unable to reliably measure RA volume due to technical limitations. Inferior Vena Cava: The inferior vena cava appears normal measuring 1.0 cm. The vessel decreases greater than 50 percent with inspiration. MITRAL VALVE There is mild mitral annular calcification observed anterior and posterior. There is trace mitral valve regurgitation. The pressure half time is 58 msec. The peak mitral E/A ratio is 1.90. The average mitral E/e' ratio is 21.5. The mitral flow deceleration time is 199 msec. ? TRICUSPID VALVE The tricuspid valve was not seen or not interrogated. There is trace tricuspid valve regurgitation. ? AORTIC VALVE There is severe aortic valve stenosis caused by calcified valve. There is trace aortic valve regurgitation. There is severe thickening. There is severe calcification. The peak gradient is 76 mmHg (peak velocity = 434.5 cm/s). The mean ?gradient is 48 mmHg. The LVOT mean velocity is 54.6 cm/s. The LVOT diameter is 2.0 cm. The aortic VTI is 117.4 cm. The mean velocity in the aortic valve is 337.0 ?cm/s. The dimensionless valve index is 0.17. AV area is 0.56 cm? (0.26 cm?/m?) by ?continuity, VTI. The LVOT stroke volume index is 31 ml/m?. ? PULMONIC VALVE The pulmonic valve was not seen or not interrogated. ? AORTA The visualized aorta is normal in size. Measurements - Sinus 3.1 cm. Sinotubular junction 2.7 cm. Mid ascending aorta 3.5 cm. PULMONARY ARTERIES The pulmonary arteries are unseen or not interrogated. ? PERICARDIUM There is no pericardial effusion. There is an epicardial fat pad. ? CONCLUSIONS: - Technically difficult exam due to body habitus. - Exam indication: Aortic valve disorder - The left ventricle is normal in size. Left ventricular systolic function is normal. EF = 60 ? 5% (2D 4-ch.) Grade II left ventricular diastolic dysfunction. - The right ventricle is normal in size. Right ventricular systolic function is normal. Right ventricular systolic function is normal on limited views. - The left atrial cavity is mildly dilated. - There is severe aortic valve stenosis caused by calcified valve. AV area is 0.56 ?cm? (0.26 cm?/m?) by continuity, VTI. The peak gradient is 76 mmHg, the mean gradient is 48 mmHg and the dimensionless valve index is 0.17. - Definity contrast could not be administered d/t unavailability of staff. - The patient has not had a prior CC echocardiographic exam for comparison. U/S bilateral Carotid: RIGHT SIDE ? Internal carotid artery: 20-39% stenosis. ? Vertebral artery: Patent and antegrade flow noted. ? Subclavian artery: Plaque visualized without evidence of hemodynamically significant stenosis. ? LEFT SIDE ? Common carotid artery: Plaque visualized without evidence of hemodynamically significant stenosis. ? Internal carotid artery: 20-39% stenosis. ? Vertebral artery: Patent and antegrade flow noted. Assessment/Plan ASSESSMENT/PLAN: 1. Aortic valve stenosis, etiology of cardiac valve disease unspecified - ICD9: 424.1, ICD10: I35.0 (primary diagnosis) 2. Coronary artery disease involving emmonak heart, angina presence unspecified, unspecified vessel or lesion type - ICD9: 414.01, ICD10: I25.10 -Planned combined CABG aVR on 07/04/[address] Rivers -Risk score 2.42% 3. Anemia, unspecified type - ICD9: 285.9, ICD10: D64.9 -Acute blood loss anemia following strangulated hernia surgery -Improved in April, repeat CBC is pending today 4. Atrial fibrillation with rapid ventricular response (HCC) - ICD9: 427.31, ICD10: I48.91 -RRR in office today -Not anticoagulated currently 5. MAURO (acute kidney injury) (HCC) - ICD9: 584.9, ICD10: N17.9 -Following strangulated hernia repair surgery in November -Serum creatinine in April was 1.13, repeat is pending today Helena Bacon APRN.CNP Tests/Labs Ordered: 1. CBC 2. CMP 3. HbA1c (average sugar test) 4. Lipids 5. Urinalysis 6. MRSA 7. Incentive spirometry 8. PT/INR 9. Magnesium These findings will be communicated back to the requesting provider electronically. SIGNATURE: Helenablake Bacon APRN.CNP PATIENT NAME: Elias Shah DATE: June 27, 2019 TIME: 10:51 AM PAGER/CONTACT #: [phone] [phone] Previous Version Helena Bacon APRN.CNP 06/27/2019 2:06 PM Addendum [facility] Pre-Admission Patient Instruction You are scheduled for surgery (Outpatient/Inpatient ) located on the 2nd Floor on: 07/04/2019 Please report to the 2nd Floor Surgical Waiting Area at: 06:00 AM Do not stop at front entrance registration. Come in the Front Doors / Main Entrance 1. Do not eat or drink anything, including water and coffee, after 11:59 PM on the night before your surgery. This is important because if you do, your surgery may have to be cancelled. Eat a light supper the evening before surgery or follow specific doctor's instructions. 2. Oral hygiene and a shower or bath is required the evening before or the morning of surgery. Use the Hibiclens body wash supplied to you today. 3. Do not chew gum the morning of surgery. 4. Notify your doctor if you develop a cold, sore throat, fever or other changes in your physical condition. 5. No alcohol 24 hours before or after surgery and refrain from smoking the morning of surgery and immediately following surgery. 6. Leave valuables such as rings, watches and money at home. Remove all make-up and nail monegasque before admission. We need to check your circulation. Remove jewelry from all piercings, tongue included, as no metal can go into surgery. 7. Wear loose, comfortable clothing that will accommodate bandages. 8. You will be asked to remove glasses and contacts prior to surgery. Please bring a case. 9. Your length of stay will be determined by your surgeon and the anesthesiologist. 10. Two family members (excluding children under age 13) may stay with you the day of surgery on site. On the morning of surgery, they will be instructed on how to download an jo to their smart phone to receive updates through your surgery. 11. Please bring a list of any medication you are taking including dose and the condition for which you are being treated. Day of surgery medications: ? Aspirin 81 mg take daily and the morning of surgery with a small sip of water ? Beta leyda: Carvedilol 25 mg and take the morning of surgery with a small sip of water ? Mupirocin ointment: Please use a pea sized amount on a q-tip to apply inside your nose twice daily for five days prior to and including the morning of surgery. Start 06/27/2019 Helena Bacon APRN.KEE June 27, 2019 Previous Version Helena Bacon APRN.CNP 06/27/2019 2:23 PM Signed [facility] Adult Cardiac Surgery Database Version 2.9 RISK SCORES Procedure: AVR + CAB Risk of Mortality: 2.422% Renal Failure: 2.127% Permanent Stroke: 1.782% Prolonged Ventilation: 8.378% DSW Infection: 0.164% Reoperation: 4.895% Morbidity or Mortality: 14.596% Short Length of Stay: 24.719% Long Length of Stay: 7.222% Progress Notes (JALYN AG CTVS): Ludivina Lawson 06/20/2019 10:55 AM Signed Patient's sister Helena called in because the patient is scheduled for a presurgical appointment on 06/21/19. She is upset because they wanted to do all of that on 06/27/19 when they come see Helena (which we have no record of) The patient comes from [place] and they don't want to Make two trips to [place] for the same reason. Helena is not understanding what is going on and she's frustrated and would like to speak with Helena at [phone] Helena Bacon APRN.KEE 06/20/2019 11:09 AM Signed I called and spoke to Mrs Enriquez. They do not need to come to the appointment on 06/21. That was scheduled in anticipation of TAVR. Mr Shah is not a TAVR candidate. He need CABG/AVR. This is scheduled 07/04. He has a PAT appointment with nc 06/27 at 1 pm. She verbalized understanding and agreed to this plan. Helena Bacon APRN.KEE [facility] BRIEF OP NOTon 05-25-2019 BRIEF OP NOT HNO ID: [id number] Author: Roger Bone Service: Interventional Cardiology Author Type: Physician Type: Brief Op Note Filed: 05/25/2019 1:15 PM Note Text: CARDIAC CATHETERIZATION REPORT PATIENT NAME: Elias Shah SERVICE DATE: 05/25/2019 SERVICE TIME: 1:05 PM Layboy Tender: Roger Bone MD Attending: Roger Bone RECOMMENDATIONS: Patient will need further discussion regarding possible TAVR procedure versus valuation for coronary bypass surgery and surgical aortic valve replacement Pre-Procedure Diagnosis: 79-year-old gentleman with complex medical history referred for evaluation of severe aortic stenosis. Outside catheterization showed concerns for ostial left circumflex and proximal LAD disease. Patient was referred for repeat cardiac catheterization with possible FFR RIYA of the LAD and left circumflex. Post- Procedure Diagnosis: Significant disease in the proximal LAD noted adenitis with diffuse 80% stenosis from the ostium to the proximal vessel. A fractional flow reserve measurement was significant at 0.8. The left circumflex is a dominant vessel with a severe ostial and proximal disease by IVUS evaluation with nonsignificant FFR measurement. Procedure: Left Heart Catheterization Access: Right Radial Artery Under Local anesthesia the Right Radial Artery was entered by Modified Seldinger's technique using a micro puncture needle. A 6F sheath was introduced into the Right Radial Artery . Selective injections were made in the left and right coronary arteries in various right and left anterior oblique views. An LV angiogram was performed in 30 degree [place]. Fractional flow reserve measurement was done through the F all 35 diagnostic catheter into left circumflex. This was not significant at 0.93. The proximal LAD was very significant by FFR of 0.80. After discussion with Dr. Green, the decision was made to perform IVUS evaluation of very hazy proximal left circumflex lesion. The ultrasound demonstrated severe eccentric calcified lesion in the proximal to ostial left circumflex with diffuse disease into the proximal vessel. Estimated stenosis of at least 75-80%. The wire was then passed into the LAD and ultrasound measurements were taken the proximal to ostial LAD. Again significant disease was noted in the ostium of the vessel. The sheath was removed and hemostatsis was established using TR band closure device. There was no bleeding at the end of the procedure. The pt was returned to the recovery room in a stable condition. FINDINGS: Hemodynamics: LVEDP: 11 mmHg LV - AORTA: 60-65 mmHg consistent with severe aortic stenosis Coronary Angiography: Left Main: A large-caliber vessel with mild disease in the distal vessel. Left Anterior Descending: Large caliber vessel with moderate calcification in the proximal vessel. The ostial to proximal portion vessel has diffuse disease estimated at 6070% and visual inspection. A fractional flow reserve measurement across this lesion was very significant at 0.80. An intravascular ultrasound examination demonstrated diffuse eccentric plaquing from the lesion back to the ostial LAD. Diagonal: Circumflex: Large caliber dominant vessel. Ostial proximal portion is focal eccentric calcified lesion estimated 80% luminal stenosis on ultrasound examination. The first obtuse marginal branch is moderate in caliber extensive lateral wall is occluded proximally. Right Coronary Artery: Small caliber non-dominant vessel with mild disease Collaterals: None LV Gram: LVEF: na Wall Motion: na Complications: None SIGNATURE: Roger Bone MD DATE: May 25, 2019 TIME: 1:05 PM [facility] NURSING PROGon 05-25-2019 NURSING PROG HNO ID: [id number] Author: Quinn GusmanRn) AGUSTO Rodrigues Service: ? Author Type: Registered Nurse Type: Nursing Progress Note Filed: 05/25/2019 3:26 PM Note Text: Report to Sharon OLGUIN [facility] NURSING PROG HNO ID: [id number] Author: Quinn GusmanRn) AGUSTO Rodrigues Service: ? Author Type: Registered Nurse Type: Nursing Progress Note Filed: 05/25/2019 3:22 PM Note Text: Dr. Promise Bone aware of patient HR and blood pressure and advised okay to discharge when TR band is removed, no further orders given. [facility] PROGRESSon 05-25-2019 PROGRESS HNO ID: [id number] Author: Sharon GusmanRn) AGUSTO León Service: Nursing Author Type: Registered Nurse Type: Progress Notes Filed: 05/25/2019 4:19 PM Note Text: Upon removal of R-Band, patient's right radial site began to ooze bright red blood. Dressing changed and pressured applied by RN. Minimal drainage on bandage. Extra gauze dressing and tegaderm sent home with patient and instructed on what to do if bleeding occurs. [facility] HOSPon 05-13-2019 HOSP Patient:Manav Shah rd K MRN: Height:6' 0(1.829 m) Weight:197 lb (89.359 kg) Outpatient Medications as of 05/25/19: aspirin 81 mg chewable tablet ondansetron (ZOFRAN) 4 mg tablet perflutren lipid microspheres (DEFINITY) 1.1 mg/mL injection (to be provided with echo procedure) perflutren lipid microspheres (DEFINITY) 1.1 mg/mL injection (to be provided with echo procedure) Lactobacillus acidophilus/lact (LACTOBACILLUS ACIDOPH-LACTASE ORAL) Acetaminophen 500 mg cap amLODIPine (NORVASC) 5 mg tablet carvedilol (COREG) 25 mg tablet fluticasone (FLONASE ALLERGY RELIEF) 50 mcg/actuation nasal spray loperamide (IMODIUM) 2 mg cap(s) Cholecalciferol, Vitamin D3, 5,000 unit cap ferrous sulfate 325 mg (65 mg iron) tablet rosuvastatin (CRESTOR) 5 mg tablet Admission/Clinic Administered Medications as of 05/25/19: NaCl 0.9% iv infusion heparin 1,000 Units in D5W 250 mL heparin 3,000 Units in NaCl 0.9% 500 mL irrigation Problem List: Abnormal electrocardiogram (ECG) (EKG) [R94.31] Anemia, unspecified [D64.9] Aortic valve stenosis [I35.0] Atrial fibrillation with rapid ventricular response (HCC) [I48.91] MAURO (acute kidney injury) (HCC) [N17.9] Acute metabolic encephalopathy [G93.41] Vitamin D deficiency [E55.9] Small bowel obstruction (HCC) [K56.609] Paroxysmal atrial fibrillation (HCC) [I48.0] LBBB (left bundle branch block) [I44.7] Incarcerated umbilical hernia [K42.0] Declining functional status [R53.81] Essential hypertension [I10] Hyperlipidemia [E78.5] Impaired cognition [R41.89] Allergies: No Known Allergies Date Verified:05/25/19 Lab Values Lab Value Units Date High Low POTA* 4.1 mmol/L 05/20/2019 5.1 3.7 VANGIE* 39.3 % 05/20/2019 51.0 39.0 Progress Notes (MARLON LYN): Torie Henriquez, RN, RN 05/18/2019 3:47 PM Addendum Patient scheduled for left heart cath, Saturday May 25, 2019, with Dr Bone . Instructions reviewed. Questions answered. Patient verbalized understanding. Instructions were as follows: -[facility] En[facility] May 25, 2019 at time assigned by [facility] stores laborer staff in phone call 2:00 and 5:00 PM.. -Nothing by mouth after midnight evening prior. -With a sip of water on May 25, 2019 morning take: Aspirin 325mg along with usual BP meds Norvasc and Coreg -Labs to be done CBC, BMP - You must have someone drive you home from your procedure. -stores laborer policy is pt not be alone first evening Office phone number provided for questions or concerns. Torin: [facility] fence laborer notified. Ameena at [facility] fence laborer notified of update on changing from Dr. Green to Dr. Bone as noted above. Torie Henriquez, RN Previous Version Martha Guillen [facility] [place] [facility] [place] 05/20/2019 10:03 AM Signed Patient has Medicare A AND B primary coverage so does not require prior authorization. We have started a new process to provide estimates to our patients for their upcoming appointment at [facility]. The purpose is to make you aware of your financial obligation after your insurance company pays. Processing your estimate will only take a moment. Your insurance shows your estimated patient responsibility for this service is $382.00. We are not collecting your estimate at this time but wanted you to be aware of potential out of pocket expenses based on the estimate we ran for you. Martha Guillen Progress Notes ([facility]): Latisha Matthews RN 05/11/2019 1:23 PM Signed home recorder to return call to discuss scheduling heart cath. Office phone number provided. AGUSTO Peck RN 05/12/2019 9:15 AM Signed home recorder requesting return call. AGUSTO Peck, RN, RN 05/13/2019 1:06 PM Signed Patient scheduled for left heart cath, Peter, with Dr Olvera on Thursday, May 25, 2019Instructions reviewed. Questions answered. Patient verbalized understanding. Instructions were as follows: -Arrive to [facility] HAND[facility] Entrance May 25, 2019 at time assigned by [facility] stores laborer staff in phone call 2:00 -5:00 PM.. -Nothing by mouth after midnight evening prior. -With a sip of water on Saturday May 25, 2019 morning take: Aspirin 325mg along with usual BP meds- coreg and Norvasc -Labs to be done CBC, BMP - You must have someone drive you home from your procedure. -stores laborer policy is pt not be alone first evening Office phone number provided for questions or concerns. Torin: [facility] fence laborer notified. Normal [facility] CNOVon 05-11-2019 CNOV Office Visit (AGCARDPOB) ELIAS SHAH ([id number]) 1940 M Date Time Provider Department 05/11/19 10:30 AM ESPINOZA BASS AGCARDPOB During your visit today, we recorded the following information about you: Pulse Respiration Blood pressure Weight 48/minute 16/minute 140/64 88.8 kg Height 1.829 m Rebecca Ballard CMA 05/11/2019 10:11 AM Signed Patient denies any cardiac complaints today. ELISHA Dennis MD 05/11/2019 4:06 PM Signed Chief Complaint: Patient presents with: New Patient Elias Shah is a 79 year old male with a known past medical history of hypertension, hyperlipidemia, paroxysmal atrial fibrillation, nonrheumatic senile calcific degenerative aortic stenosis who presents for evaluation of his aortic stenosis. He has had multiple medical issues over the past 5 months starting with an incarcerated bowel necessitating surgery, admission for A. fib with RVR, and now he is referred here for his aortic stenosis. He states that over the past year he has stopped doing any sort of strenuous activity due to general fatigue and shortness of breath. He admits that over a year ago he used to be able to jog but noticed that he was getting more progressively short of breath with jogging and therefore he has stopped. He does not walk much distance at this point in time without getting fatigued which is his main complaint. He denies any complaints of chest pain or pressure and denies any orthopnea, paroxysmal nocturnal dyspnea, syncope or presyncope and denies any palpitations or leg swelling. At his office visit today he states that he feels well at rest and has no new complaints at this time. PAST MEDICAL HISTORY Diagnosis Date - Acute kidney injury (HCC) - Acute metabolic encephalopathy - Anemia - Aortic stenosis - Atrial fibrillation (HCC) - Bowel obstruction (HCC) - Hyperlipidemia - Hypertension - Left bundle branch block - Mitral valve annular calcification - Prolonged QT interval - Vitamin D deficiency PAST SURGICAL HISTORY Procedure Laterality Date - REPAIR UMBILICAL HERNIA 12/04/2018 after bowel perforation done at [facility] Dr. Young FAMILY HISTORY Problem Relation Age of Onset - Osteoporosis Mother - Heart Mother - Cancer Father Social History Socioeconomic History Marital status: Spouse name: Not on file Number of children: Not on file Years of education: Not on file Highest education level: Not on file Social Needs Financial resource strain: Not on file Food insecurity - worry: Not on file Food insecurity - inability: Not on file Transportation needs - medical: Not on file Transportation needs - non-medical: Not on file Occupational History Not on file Tobacco Use Smoking status: Former Smoker Packs/day: 1.00 Years: 5.00 Pack years: 5 Quit date: 11/23/1954 Years since quittin.5 Smokeless tobacco: Never Used Substance and Sexual Activity Alcohol use: Yes Comment: social Drug use: Never Sexual activity: Not on file Other Topics Concerns: Service: No Blood Transfusions: Yes Caffeine Concern: No Occupational Exposure: Not Asked Hobby Hazards: Not Asked Sleep Concern: No Stress Concern: No Weight Concern: Not Asked Special Diet: No no restrictions Back Care: Not Asked Exercise: No sedentary Bike Helmet: Not Asked Seat Belt: Yes Self-Exams: Not Asked Social History Narrative Not on file Current Outpatient Medications: ondansetron (ZOFRAN) 4 mg tablet Take 4 mg by mouth every 8 hours as needed. Lactobacillus acidophilus/lact (LACTOBACILLUS ACIDOPH-LACTASE ORAL) Take by mouth twice daily. Acetaminophen 500 mg cap Take 2 capsules by mouth twice daily as needed. amLODIPine (NORVASC) 5 mg tablet Take 5 mg by mouth once daily. carvedilol (COREG) 25 mg tablet Take 25 mg by mouth three times daily. fluticasone (FLONASE ALLERGY RELIEF) 50 mcg/actuation nasal spray Use 1 [place] in each nostril once daily. loperamide (IMODIUM) 2 mg cap(s) Take 2 mg by mouth once daily. Cholecalciferol, Vitamin D3, 5,000 unit cap Take 5,000 Units by mouth once daily. ferrous sulfate 325 mg (65 mg iron) tablet Take 325 mg by mouth daily with breakfast. rosuvastatin (CRESTOR) 5 mg tablet Take 5 mg by mouth once daily. perflutren lipid microspheres (DEFINITY) 1.1 mg/mL injection (to be provided with echo procedure) Inject 1.3 mL intravenously as directed. perflutren lipid microspheres (DEFINITY) 1.1 mg/mL injection (to be provided with echo procedure) Inject 1.3 mL intravenously as directed. No current facility-administered medications for this visit. ALLERGIES No Known Allergies Cardiac Testing Transesophageal echocardiogram performed in [place] in February 2019: Ejection fraction 65%, severe restriction of the aortic valve with moderate to severe aortic stenosis with a peak gradient of 52 mmHg, mean gradient of 28 mmHg. Transthoracic echocardiogram performed in November 2018 at [facility]: Ejection fraction 68%, peak and mean gradients of 86 and 44 mmHg respectively. Images are not available for evaluation any further. Review of Systems: GENERAL: No weight loss, malaise or fevers. HEENT: Negative for frequent or significant headaches NECK: Negative for goiter, pain or significant neck swelling RESPIRATORY: See HPI CARDIOVASCULAR: See HPI GI: No nausea, vomiting, or diarrhea MUSCULOSKELETAL: Negative for joint pain or swelling, back pain or muscle pain SKIN: Negative for lesions, rash, and itching. ENDOCRINE: Negative for cold or heat intolerance, polyuria or polydipsia. NEURO: No history of headaches, syncope, paralysis, seizures or tremors Physical Examination:: BP 140/64 Pulse 48 Resp 16 Ht 6' 0 (1.83m) Wt 195 lb 12.8 oz (88.8kg) SpO2 97% BMI 26.55 kg/(m2). General Appearance: Well appearing, alert, in no acute distress, well-hydrated, well nourished.. Skin: Skin color, texture, turgor normal, no suspicious rashes or lesions. Head: Normocephalic, no masses, lesions, tenderness or abnormalities. Eyes: Anicteric sclera. Pupils are equally round and reactive to light. Extraocular movements are intact. . Neck: Supple, no adenopathy; thyroid symmetric, normal size, no bruits. Lungs: lungs clear to auscultation. No wheezing, rhonchi, rales. Heart: Normal S1, S2. Late peaking Systolic ejection murmur at the right upper sternal border with radiation to both carotids and absent A2. Peripheral Pulses: Normal. ASSESSMENT/PLAN: 1. Nonrheumatic aortic valve stenosis - ICD9: 424.1, ICD10: I35.0 (primary diagnosis) He has to discrepant findings 1 is a transthoracic echocardiogram for which we have no images and showed severe aortic stenosis, the other is a transesophageal echocardiogram which we have images for which showed moderate aortic stenosis. I do believe we should repeat his transthoracic echocardiogram as it has been 6 months since his previous one, and we would need images to be able to fully evaluate the extent of aortic stenosis. He had a left heart catheterization and coronary angiogram performed at [place] which reflected mild coronary artery disease, but based on my review of that angiogram I do believe there may be a significant proximal left circumflex stenosis and a dominant left circumflex system, and possibly a mid LAD stenosis which needs further evaluation, therefore we would need to repeat the heart catheterization to evaluate this further as this will impact the decision on valve replacement tremendously. - LEFT HEART CATH,PERCUTANEOUS - ECHO 2. 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 I will discuss with GI if there is any danger to starting antiplatelet therapy as he has not been put on that yet. - LEFT HEART CATH,PERCUTANEOUS - ECHO 3. 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 ACETAMINOPHEN 500 MG CAPSULE Take 2 capsules by mouth twic* AMLODIPINE 5 MG TABLET Take 5 mg by mouth once daily. CARVEDILOL 25 MG TABLET Take 25 mg by mouth three ridge* FLUTICASONE PROPIONATE 50 MCG* Use 1 [place] in each nostril o* LOPERAMIDE 2 MG CAPSULE Take 2 mg by mouth once daily. CHOLECALCIFEROL (VITAMIN D3) * Take 5,000 Units by mouth onc* FERROUS SULFATE 325 MG (65 MG* Take 325 mg by mouth daily wi* ROSUVASTATIN 5 MG TABLET Take 5 mg by mouth once daily. PERFLUTREN LIPID MICROSPHERES* Inject 1.3 mL intravenously a* Problem List As Of Date: 05/11/2019 (None) Visit Notes: >> Rebecca Ballard ThuMay 11, 2019 10:07 AM Status: Signed Patient denies any cardiac complaints today. Rebecca Ballard [facility] Prescriptions ordered this encounter Disp Refills Start End PERFLUTREN LIPID MICROSPHERES 1.1 MG* 1.3 * 0 05/11/2019 05/10/2020 Class: In Office Route: INTRAVENOUS Sig: Inject 1.3 mL intravenously as directed. Disposition: Return in about 1 month (around 06/10/2019). Follow-up and Disposition History Recorded Encounter Status:Closed by ESPINOZA BASS on 05/11/19 [facility] CNOV Office Visit (AGCARDPOB) ELIAS SHAH ([id number]) 1940 M Date Time Provider Department 05/11/19 10:30 AM WAYNE RIVERS During your visit today, we recorded the following information about you: Pulse Respiration Blood pressure Weight 48/minute 16/minute 140/64 88.5 kg Height 1.829 m Wayne Rivers MD 05/17/2019 2:55 PM Signed Elias Shah is an 79 year old man with symptomatic severe . I agree with the recommendation for AVR with a bioprosthesis. I think he would best be served with TAVR given age, comorbidities, and frailty. I have reviewed the left heart cath. I am a little concerned that there may be a significant proximal LAD stenosis near the origin of a septal branch. Dr. Green has also reviewed and he is concerned about possible proximal circ lesion as well. We agree that despite a low STS PROM TAVR should be considered due to recent severe illness, surgery, MAURO, and debility. We are recommending repeat echo and cath with further recommendations to follow. Wayne Rivers MD Referring Provider: GERALD ANN [[id number]] Allergies As of Date: 05/11/2019 (No Known Allergies) Date Reviewed: 05/11/2019 Reviewed by: Rebecca Ballard - Fully Assessed Reason for Visit: Cardiology Follow Up [1732] Primary Visit Diagnosis:Preoperativ e cardiovascular examination [Z01.810] Other Visit Diagnoses:Coronary artery disease involving em[place]ak coronary artery of emmonak heart without angina pectoris [I25.10] Nonrheumatic aortic valve stenosis [I35.0] Order(s):perflutren lipid microspheres (DEFINITY) 1.1 mg/mL injection (to be provided with echo procedure)Inject 1.3 mL intravenously as directed.Disp: 1.3 mLRfl: 0 LEFT HEART CATH/CORON/LV () [[id number]] Order #: [id number] Prescriptions as of 05/11/2019 Sig: PERFLUTREN LIPID MICROSPHERES* Inject 1.3 mL intravenously a* LACTOBACILLUS ACIDOPH-LACTASE* Take by mouth twice daily. ACETAMINOPHEN 500 MG CAPSULE Take 2 capsules by mouth twic* AMLODIPINE 5 MG TABLET Take 5 mg by mouth once daily. CARVEDILOL 25 MG TABLET Take 25 mg by mouth three ridge* FLUTICASONE PROPIONATE 50 MCG* Use 1 [place] in each nostril o* LOPERAMIDE 2 MG CAPSULE Take 2 mg by mouth once daily. CHOLECALCIFEROL (VITAMIN D3) * Take 5,000 Units by mouth onc* FERROUS SULFATE 325 MG (65 MG* Take 325 mg by mouth daily wi* ROSUVASTATIN 5 MG TABLET Take 5 mg by mouth once daily. Problem List As Of Date: 05/11/2019 (None) Prescriptions ordered this encounter Disp Refills Start End PERFLUTREN LIPID MICROSPHERES 1.1 MG* 1.3 * 0 05/11/2019 05/10/2020 Class: In Office Route: INTRAVENOUS Sig: Inject 1.3 mL intravenously as directed. Level of Service: EST PATIENT VISIT LEVEL 1 [31517] Encounter Status:Closed by WAYNE RIVERS MD on 05/17/19 [facility] CNPJohanna 05-11-2019 [facility] ) ELIAS SHAH ([id number]) 1940 M Date Time Provider Department 05/11/19 ESPINOZA BASS AGCARDPOB During your visit today, we recorded the following information about you: Latisha Matthews RN 05/11/2019 1:23 PM Signed home recorder to return call to discuss scheduling heart cath. Office phone number provided. AGUSTO Peck RN 05/12/2019 9:15 AM Signed LM home recorder requesting return call. AGUSTO Peck, RN, RN 05/13/2019 1:06 PM Signed Patient scheduled for left heart cath, Peter, with Dr Olvera on Saturday, May 25, 2019Instructions reviewed. Questions answered. Patient verbalized understanding. Instructions were as follows: -Arrive to [facility] HANDV Entrance May 25, 2019 at time assigned by [facility] stores laborer staff in phone call 2:00 -5:00 PM.. -Nothing by mouth after midnight evening prior. -With a sip of water on Saturday May 25, 2019 morning take: Aspirin 325mg along with usual BP meds- coreg and Norvasc -Labs to be done CBC, BMP - You must have someone drive you home from your procedure. -stores laborer policy is pt not be alone first evening Office phone number provided for questions or concerns. Torin: [facility] fence laborer notified. Allergies As of Date: 05/11/2019 (No Known Allergies) Date Reviewed: 05/11/2019 Reviewed by: Rebecca Ballard - Fully Assessed Reason for Visit: Preparations For Procedures [899] Prescriptions as of 05/11/2019 Sig: ONDANSETRON HCL 4 MG TABLET Take 4 mg by mouth every 8 ho* PERFLUTREN LIPID MICROSPHERES* Inject 1.3 mL intravenously a* PERFLUTREN LIPID MICROSPHERES* Inject 1.3 mL intravenously a* LACTOBACILLUS ACIDOPH-LACTASE* Take by mouth twice daily. ACETAMINOPHEN 500 MG CAPSULE Take 2 capsules by mouth twic* AMLODIPINE 5 MG TABLET Take 5 mg by mouth once daily. CARVEDILOL 25 MG TABLET Take 25 mg by mouth three ridge* FLUTICASONE PROPIONATE 50 MCG* Use 1 [place] in each nostril o* LOPERAMIDE 2 MG CAPSULE Take 2 mg by mouth once daily. CHOLECALCIFEROL (VITAMIN D3) * Take 5,000 Units by mouth onc* FERROUS SULFATE 325 MG (65 MG* Take 325 mg by mouth daily wi* ROSUVASTATIN 5 MG TABLET Take 5 mg by mouth once daily. Problem List As Of Date: 05/11/2019 (None) Encounter Status:Closed by TORIE HENRIQUEZ on 05/13/19 [facility] HISTORY PHYSICALon HISTORY PHYSICAL HNO ID: [id number] Author: Espinoza Bass Service: ? Author Type: Physician Type: HANDP Filed: 05/11/2019 4:06 PM Note Text: Chief Complaint: Patient presents with: New Patient Elias Shah is a 79 year old male with a known past medical history of hypertension, hyperlipidemia, paroxysmal atrial fibrillation, nonrheumatic senile calcific degenerative aortic stenosis who presents for evaluation of his aortic stenosis. He has had multiple medical issues over the past 5 months starting with an incarcerated bowel necessitating surgery, admission for A. fib with RVR, and now he is referred here for his aortic stenosis. He states that over the past year he has stopped doing any sort of strenuous activity due to general fatigue and shortness of breath. He admits that over a year ago he used to be able to jog but noticed that he was getting more progressively short of breath with jogging and therefore he has stopped. He does not walk much distance at this point in time without getting fatigued which is his main complaint. He denies any complaints of chest pain or pressure and denies any orthopnea, paroxysmal nocturnal dyspnea, syncope or presyncope and denies any palpitations or leg swelling. At his office visit today he states that he feels well at rest and has no new complaints at this time. PAST MEDICAL HISTORY Diagnosis Date - Acute kidney injury (HCC) - Acute metabolic encephalopathy - Anemia - Aortic stenosis - Atrial fibrillation (HCC) - Bowel obstruction (HCC) - Hyperlipidemia - Hypertension - Left bundle branch block - Mitral valve annular calcification - Prolonged QT interval - Vitamin D deficiency PAST SURGICAL HISTORY Procedure Laterality Date - REPAIR UMBILICAL HERNIA 12/04/2018 after bowel perforation done at [facility] Dr. Young FAMILY HISTORY Problem Relation Age of Onset - Osteoporosis Mother - Heart Mother - Cancer Father Social History Socioeconomic History Marital status: Spouse name: Not on file Number of children: Not on file Years of education: Not on file Highest education level: Not on file Social Needs Financial resource strain: Not on file Food insecurity - worry: Not on file Food insecurity - inability: Not on file Transportation needs - medical: Not on file Transportation needs - non-medical: Not on file Occupational History Not on file Tobacco Use Smoking status: Former Smoker Packs/day: 1.00 Years: 5.00 Pack years: 5 Quit date: 11/23/1954 Years since quittin.5 Smokeless tobacco: Never Used Substance and Sexual Activity Alcohol use: Yes Comment: social Drug use: Never Sexual activity: Not on file Other Topics Concerns: Service: No Blood Transfusions: Yes Caffeine Concern: No Occupational Exposure: Not Asked Hobby Hazards: Not Asked Sleep Concern: No Stress Concern: No Weight Concern: Not Asked Special Diet: No no restrictions Back Care: Not Asked Exercise: No sedentary Bike Helmet: Not Asked Seat Belt: Yes Self-Exams: Not Asked Social History Narrative Not on file Current Outpatient Medications: ondansetron (ZOFRAN) 4 mg tablet Take 4 mg by mouth every 8 hours as needed. Lactobacillus acidophilus/lact (LACTOBACILLUS ACIDOPH-LACTASE ORAL) Take by mouth twice daily. Acetaminophen 500 mg cap Take 2 capsules by mouth twice daily as needed. amLODIPine (NORVASC) 5 mg tablet Take 5 mg by mouth once daily. carvedilol (COREG) 25 mg tablet Take 25 mg by mouth three times daily. fluticasone (FLONASE ALLERGY RELIEF) 50 mcg/actuation nasal spray Use 1 [place] in each nostril once daily. loperamide (IMODIUM) 2 mg cap(s) Take 2 mg by mouth once daily. Cholecalciferol, Vitamin D3, 5,000 unit cap Take 5,000 Units by mouth once daily. ferrous sulfate 325 mg (65 mg iron) tablet Take 325 mg by mouth daily with breakfast. rosuvastatin (CRESTOR) 5 mg tablet Take 5 mg by mouth once daily. perflutren lipid microspheres (DEFINITY) 1.1 mg/mL injection (to be provided with echo procedure) Inject 1.3 mL intravenously as directed. perflutren lipid microspheres (DEFINITY) 1.1 mg/mL injection (to be provided with echo procedure) Inject 1.3 mL intravenously as directed. No current facility-administered medications for this visit. ALLERGIES No Known Allergies Cardiac Testing Transesophageal echocardiogram performed in [place] in February 2019: Ejection fraction 65%, severe restriction of the aortic valve with moderate to severe aortic stenosis with a peak gradient of 52 mmHg, mean gradient of 28 mmHg. Transthoracic echocardiogram performed in November 2018 at [facility]: Ejection fraction 68%, peak and mean gradients of 86 and 44 mmHg respectively. Images are not available for evaluation any further. Review of Systems: GENERAL: No weight loss, malaise or fevers. HEENT: Negative for frequent or significant headaches NECK: Negative for goiter, pain or significant neck swelling RESPIRATORY: See HPI CARDIOVASCULAR: See HPI GI: No nausea, vomiting, or diarrhea MUSCULOSKELETAL: Negative for joint pain or swelling, back pain or muscle pain SKIN: Negative for lesions, rash, and itching. ENDOCRINE: Negative for cold or heat intolerance, polyuria or polydipsia. NEURO: No history of headaches, syncope, paralysis, seizures or tremors Physical Examination:: BP 140/64 Pulse 48 Resp 16 Ht 6' 0 (1.83m) Wt 195 lb 12.8 oz (88.8kg) SpO2 97% BMI 26.55 kg/(m2). General Appearance: Well appearing, alert, in no acute distress, well-hydrated, well nourished.. Skin: Skin color, texture, turgor normal, no suspicious rashes or lesions. Head: Normocephalic, no masses, lesions, tenderness or abnormalities. Eyes: Anicteric sclera. Pupils are equally round and reactive to light. Extraocular movements are intact. . Neck: Supple, no adenopathy; thyroid symmetric, normal size, no bruits. Lungs: lungs clear to auscultation. No wheezing, rhonchi, rales. Heart: Normal S1, S2. Late peaking Systolic ejection murmur at the right upper sternal border with radiation to both carotids and absent A2. Peripheral Pulses: Normal. ASSESSMENT/PLAN: 1. Nonrheumatic aortic valve stenosis - ICD9: 424.1, ICD10: I35.0 (primary diagnosis) He has to discrepant findings 1 is a transthoracic echocardiogram for which we have no images and showed severe aortic stenosis, the other is a transesophageal echocardiogram which we have images for which showed moderate aortic stenosis. I do believe we should repeat his transthoracic echocardiogram as it has been 6 months since his previous one, and we would need images to be able to fully evaluate the extent of aortic stenosis. He had a left heart catheterization and coronary angiogram performed at [place] which reflected mild coronary artery disease, but based on my review of that angiogram I do believe there may be a significant proximal left circumflex stenosis and a dominant left circumflex system, and possibly a mid LAD stenosis which needs further evaluation, therefore we would need to repeat the heart catheterization to evaluate this further as this will impact the decision on valve replacement tremendously. - LEFT HEART CATH,PERCUTANEOUS - ECHO 2. 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 I will discuss with GI if there is any danger to starting antiplatelet therapy as he has not been put on that yet. - LEFT HEART CATH,PERCUTANEOUS - ECHO 3. Essential hypertension - ICD9: 401.9, ICD10: I10 - fair control - Continue current medication(s) Follow-up in one month Espinoza Bass MD [facility] PROGRESSon 05-11-2019 PROGRESS HNO ID: [id number] Author: Wayne Rivers Service: ? Author Type: Physician Type: Progress Notes Filed: 05/17/2019 2:55 PM Note Text: Elias Shah is an 79 year old man with symptomatic severe . I agree with the recommendation for AVR with a bioprosthesis. I think he would best be served with TAVR given age, comorbidities, and frailty. I have reviewed the left heart cath. I am a little concerned that there may be a significant proximal LAD stenosis near the origin of a septal branch. Dr. Green has also reviewed and he is concerned about possible proximal circ lesion as well. We agree that despite a low STS PROM TAVR should be considered due to recent severe illness, surgery, MAURO, and debility. We are recommending repeat echo and cath with further recommendations to follow. Wayne Rivers MD [facility] HOSPon 04-27-2019 HOSP Patient:Manav Shah rd MRN: Height:6' 0(1.829 m) Weight:196 lb (88.905 kg) Outpatient Medications as of 05/04/19: Lactobacillus acidophilus/lact (LACTOBACILLUS ACIDOPH-LACTASE ORAL) Acetaminophen 500 mg cap amLODIPine (NORVASC) 5 mg tablet carvedilol (COREG) 25 mg tablet fluticasone (FLONASE ALLERGY RELIEF) 50 mcg/actuation nasal spray loperamide (IMODIUM) 2 mg cap(s) Cholecalciferol, Vitamin D3, 5,000 unit cap ferrous sulfate 325 mg (65 mg iron) tablet rosuvastatin (CRESTOR) 5 mg tablet Admission/Clinic Administered Medications as of 05/04/19: Patient has no admission medications. Problem List: No problem list on file for this patient. Allergies: Allergies have not been reviewed in the past 30 days. Lab Values No results within the last 30 days for the following basenames: K,HCT Progress Notes (JALYN AG CTVS): Brook Sweeney LPN 04/25/2019 1:00 PM Signed I LM for pt to please return my call to discuss iron supplementation along with vitamin c to increase the absorption. Pt is already on the iron. We will discuss. AMA Carson LPN 04/25/2019 4:16 PM Signed I did speak with Helena Enriquez pts sister who returned my call for the pt and listed on information release form. Pt is on the iron supplement suggested daily and will start OTC vitamin C supplement of 500 mg daily. Is that sufficient? Brook Sweeney LPN Progress Notes (JAL[facility] CTVS): Elisha Cardenas 04/20/2019 2:05 PM Signed Mr. Shah is schedule 05/11/19 10:30am with Dr. Green and Dr. Rivers for TAVR consult. Appointment information given to Mr. Shah's sister Helena Enriquez. Also request sent to [facility] Inter[facility]iology for Cardiac CTA, AND CTA A/P TAVR protocol. They will contact pt directly to schedule. ? La Ivan 04/20/2019 2:31 PM Signed Okay thanks! Elisha Cardenas ?You 25 minutes ago (2:05 PM) TAVR clinic appt 05/11 10:30am Routing Comment Normal [facility] 04-20-2019 [facility] (AGVASACC) ELIAS SHAH ([id number]) 1940 M Date Time Provider Department 04/20/19 WAYNE RIVERS During your visit today, we recorded the following information about you: Elisha Cardenas 04/20/2019 2:05 PM Signed Mr. Shah is schedule 05/11/19 10:30am with Dr. Green and Dr. Rivers for TAVR consult. Appointment information given to Mr. Shah's sister Helena Enriquez. Also request sent to [facility]iology for Cardiac CTA, AND CTA A/P TAVR protocol. They will contact pt directly to schedule. ? La Myerskins 04/20/2019 2:31 PM Signed Okay thanks! Elisha Cardenas ?You 25 minutes ago (2:05 PM) TAVR clinic appt 05/11 10:30am Routing Comment Allergies As of Date: 04/20/2019 (No Known Allergies) Date Reviewed: Never Reviewed Reason for Visit: Future Appointment [256] Cmt: TAVR clinic Reason For Visit History Recorded Prescriptions as of 04/20/2019 Sig: LACTOBACILLUS ACIDOPH-LACTASE* Take by mouth twice daily. ACETAMINOPHEN 500 MG CAPSULE Take 2 capsules by mouth twic* AMLODIPINE 5 MG TABLET Take 5 mg by mouth once daily. CARVEDILOL 25 MG TABLET Take 25 mg by mouth three ridge* FLUTICASONE PROPIONATE 50 MCG* Use 1 [place] in each nostril o* LOPERAMIDE 2 MG CAPSULE Take 2 mg by mouth once daily. CHOLECALCIFEROL (VITAMIN D3) * Take 5,000 Units by mouth onc* FERROUS SULFATE 325 MG (65 MG* Take 325 mg by mouth daily wi* ROSUVASTATIN 5 MG TABLET Take 5 mg by mouth once daily. Problem List As Of Date: 04/20/2019 (None) Encounter Status:Closed by ELISHA CARDENAS on 04/20/19 [facility] 04-19-2019 [facility] Treatment Team (AGVASACC) ALYSSAELIAS GABRIEL Farshad ([id number]) 1940 M Date Time Provider Department 04/19/19 HELENA BACON (TENNIS COACH) [facility] During your visit today, we recorded the following information about you: Helena Bacon APRN.TENNIS COACH 04/19/2019 9:02 AM Signed MULTI DISCIPLINARY HIGH RISK PCI AND VALVULAR DISEASE CARDIAC TEAM ? Members present: Smitha Bass Lahorra, Cogan, King, Frederick, Ruhlin, Joya Wood, Siva ? Presenting Physician: Manuel ? PATIENT NAME: Elias Shah DATE: 04/19/19 ? ? Outcome: Elias Yen Alyssa's history and imaging were reviewed by the physicians in attendance. Severe , deconditioned following recent SBO, Cath with concern for CAD. ? The collaborative recommendation of the committee would be:Valve clinic, repeat cardiac catheterization to IVUS and possibly intervene in LAD and +/- LCx, TAVR CTA and TAVR to follow CAD intervention. ? Helena Bacon APRN.KEE Allergies As of Date: 04/19/2019 (No Known Allergies) Date Reviewed: Never Reviewed Primary Visit Diagnosis:Aortic valve stenosis, etiology of cardiac valve disease unspecified [I35.0] Other Visit Diagnosis:Coronary artery disease involving emmonak heart with angina pectoris, unspecified vessel or lesion type (HCC) [I25.119] Order(s):LEFT HEART CATH,PERCUTANEOUS [[id number]] Order #: [id number]: 1 Prescriptions as of 04/19/2019 Sig: LACTOBACILLUS ACIDOPH-LACTASE* Take by mouth twice daily. ACETAMINOPHEN 500 MG CAPSULE Take 2 capsules by mouth twic* AMLODIPINE 5 MG TABLET Take 5 mg by mouth once daily. CARVEDILOL 25 MG TABLET Take 25 mg by mouth three ridge* FLUTICASONE PROPIONATE 50 MCG* Use 1 [place] in each nostril o* LOPERAMIDE 2 MG CAPSULE Take 2 mg by mouth once daily. CHOLECALCIFEROL (VITAMIN D3) * Take 5,000 Units by mouth onc* FERROUS SULFATE 325 MG (65 MG* Take 325 mg by mouth daily wi* ROSUVASTATIN 5 MG TABLET Take 5 mg by mouth once daily. Problem List As Of Date: 04/19/2019 (None) Encounter Status:Closed by HELENA BACON CNP on 04/19/19 [facility] PROGRESSon 04-19-2019 PROGRESS HNO ID: [id number] Author: Helena Bacon Service: ? Author Type: Nurse Practitioner Type: Progress Notes Filed: 04/19/2019 9:02 AM Note Text: MULTI DISCIPLINARY HIGH RISK PCI AND VALVULAR DISEASE CARDIAC TEAM ? Members present: Kali, Manuel Bone, King Raman Frederick, Ruhlin, Joya Wood, Siva ? Presenting Physician: Manuel ? PATIENT NAME: Elias Shah DATE: 04/19/19 ? ? Outcome: Elias Shah's history and imaging were reviewed by the physicians in attendance. Severe , deconditioned following recent SBO, Cath with concern for CAD. ? The collaborative recommendation of the committee would be:Valve clinic, repeat cardiac catheterization to IVUS and possibly intervene in LAD and +/- LCx, TAVR CTA and TAVR to follow CAD intervention. ? Helena Bacon APRN.CNP Normal [facility] 04-13-2019 [facility] Office Visit (AGVASACC) ELIAS SHAH ([id number]) 1940 M Date Time Provider Department 04/13/19 2:00 PM WAYNE RIVERS During your visit today, we recorded the following information about you: Pulse Respiration Blood pressure Weight 55/minute 20/minute 158/70 88.9 kg Height 1.829 m Brook Sweeney LPN 04/13/2019 1:52 PM Signed CARDIAC REHAB 5 METER WALK TEST SERVICE DATE: 04/13/2019 SERVICE TIME: 1346 ASSESSMENT: SIGNATURE: Brook Sweeney LPN PATIENT NAME: Elias Shah DATE: April 13, 2019 TIME: 1:46 PM PAGER/CONTACT #: [id number] 1. 8 sec 2. 7.3 sec 3. 7.2 sec AMA Carson APRN.CNP, APRN.CNP 04/13/2019 2:47 PM Addendum You came in to see us today for surgical evaluation of aortic stenosis, which we agree that you would need aortic valve replacement: Open heart surgery Vs TAVR (catheter base approach). Next steps are: ? We will present you to our valve conference for further evaluation ? Dental evaluation ? CT images per TAVR protocol ? CAROTID US Thanks for coming in to see us today. Please call us if you have any concerns/questions: [phone] OLEKSANDR Albrecht MD 04/13/2019 3:22 PM Signed Elias Shah is an 78 year old man referred for evaluation of symptomatic severe aortic stenosis and for consideration for SAVR versus TAVR. He was admitted to [facility] in November with acute illness due to strangulation and ischemia of small bowl due to incarceration in an umbilical hernia. He required emergency bowel resection. His course was complicated by acute renal failure, anemia, and deconditioning. During that hospitalization, severe aortic stenosis was diagnosed by 2D echo (EF68%; aortic valve calcification; peak and mean gradients of 86 and 44 mmHg respectively.). He was told he would eventually need AVR after recovery from his acute illness. PAF was also documented, but anticoagulation was not started due to anemia and guaic + stool. He has had further evaluation by Dr. Ann of [place] cardiology. Left heart catheterization shows no significant coronary artery lesions. 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 Mean AV gradient was 40. He has documented a recent history of worsening dyspnea on exertion, occasional chest pain. Elias Shah endorses very severe fatigue and low energy levels for some time. He denies presyncope or syncope, edema, previous heart attack or heart failure. Following his acute illness in November, he recovered in SNF for total 5 weeks. He is now residing with a sister.His anemia was recently evaluated with EGD and colonoscopy; I do not have reports at hand, but he tells me several polyps were removed. Renal function has improved (Cr 5+ on admit in November; now is 1.19). He is walking well, but does use a walker. CT scan of the brain performed in November showed cerebral volume loss and a small lacunar infract. PAST MEDICAL HISTORY Diagnosis Date - Acute kidney injury (HCC) - Acute metabolic encephalopathy - Anemia - Aortic stenosis - Atrial fibrillation (HCC) - Bowel obstruction (HCC) - Hyperlipidemia - Hypertension - Left bundle branch block - Mitral valve annular calcification - Prolonged QT interval - Vitamin D deficiency PAST SURGICAL HISTORY Procedure Laterality Date - REPAIR UMBILICAL HERNIA 12/04/2018 after bowel perforation done at [facility] Dr. Young REVIEW OF SYSTEMS: GENERAL: Fever - No Chills - No Night sweats - No Changes in weight - No NEUROLOGICAL: Headaches - No Seizures - No Passing out - No History of stroke or mini-stroke - right thalamus, lacunar, by recent CT Head injury or trauma - No Numbness, tingling or sensation of pins and needles - No HEAD, EYES, EARS, NOSE, AND THROAT: Changes in hearing - No Changes in vision - No Nose bleeds - No CARDIOVASCULAR: Chest pain or pressure - Yes Palpitations - No Valvular heart disease - Yes High blood pressure - Yes Irregular heart rate - Yes Heart attack - No Heart failure - No High Cholesterol - Yes History of rheumatic fever - No History of Scarlet fever - No History of atrial fibrillation - Yes RESPIRATORY: Cough - No Wheezing - No Shortness of breath - No Shortness of breath with exertion - Yes Coughing up blood - No Asthma - No Bronchitis - No Blood clot in your lung - No GASTROINTESTINAL: Abdominal discomfort - No Nausea - No Vomiting - No Diarrhea - No Constipation - No Difficulty swallowing - No Pain with swallowing - No Stomach pain after eating - No Passing blood with bowel movement - No Black tarry stool - No, previously' History of stomach ulcers - No Acid reflux or heartburn - No GENITOURINARY: GENITOURINARY: EXTREMITY: Edema (swelling) - No Intermittent claudication (pain with walking) - No MUSCULOSKELETAL: Joint pain - No Joint swelling - No Back pain - No Muscle pain or ache - No Skin: Rash - No Lesions - No Sores - No Ulcers - No Tenderness - No Skin cancer - No HEMATOLOGY: Bleeding disorder - No Easy bruising - No Anemia - Yes Cancer - No Blood transfusions - No Blood clots - No ENDOCRINE: Diabetes - No Thyroid disorder - No PSYCHOLOGICAL: Depression - No Anxiety - No OTHER: I have reviewed Heart Catherization, 2D echocardiogram, Transesophegeal Echocardiogram and Office note of Dr. Ann On examination, he appears well and is breathing comfortably. He walks well with a walker. Vitals signs are BP 158/70 (BP Site: Left Arm) Pulse (!) 55 Resp 20 Ht 6' (1.829 m) Wt 196 lb (88.9 kg) SpO2 94% BMI 26.58 kg/m? . There is no JVD. No cervical or supraclavicular adenopathy is palpated. The chest is symmetrical without deformity. Breath sounds are clear bilaterally. The cardiac rhythm is regular. There is a 2-3/6 systolic crescendo-decrescendo murmur best heard at the right sternal border. The carotid, subclavian, and radial pulses are 2+ and equal bilaterally. The abdomen is soft and non-tender. There are no abdominal masses. There is no hepatojugular reflux. There is no pretibial edema. There is no clubbing or cyanosis. In summary, Elias Shah is an 79 year old man with symptomatic severe . I agree with the recommendation for AVR with a bioprosthesis. I think he would best be served with TAVR given age, comorbidities, and frailty. I have reviewed the left heart cath. I am a little concerned that there may be a significant proximal LAD stenosis near the origin of a septal branch; I will have this reviewed with interventional cardiology. TAVR CT protocol will be ordered. He will see Dr. Green in [facility]. His case will be reviewed at Valve Conference. Further recommendations to follow. Wayne Rivers MD . 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 ACETAMINOPHEN 500 MG CAPSULE Take 2 capsules by mouth twic* AMLODIPINE 5 MG TABLET Take 5 mg by mouth once daily. CARVEDILOL 25 MG TABLET Take 25 mg by mouth three ridge* FLUTICASONE PROPIONATE 50 MCG* Use 1 [place] in each nostril o* LOPERAMIDE 2 MG CAPSULE Take 2 mg by mouth once daily. CHOLECALCIFEROL (VITAMIN D3) * Take 5,000 Units by mouth onc* FERROUS SULFATE 325 MG (65 MG* Take 325 mg by mouth daily wi* ROSUVASTATIN 5 MG TABLET Take 5 mg by mouth once daily. Problem List As Of Date: 04/13/2019 (None) Other instructions from your clinician: You came in to see us today for surgical evaluation of aortic stenosis, which we agree that you would need aortic valve replacement: Open heart surgery Vs TAVR (catheter base approach). Next steps are: ? We will present you to our valve conference for further evaluation ? Dental evaluation ? CT images per TAVR protocol ? CAROTID US Thanks for coming in to see us today. Please call us if you have any concerns/questions: [phone] Milad Paniagua APRN.TENNIS COACH Visit Notes: >> Brook Sweeney Wed April 13, 2019 1:46 PM Status: Signed CARDIAC REHAB 5 METER WALK TEST SERVICE DATE: 04/13/2019 SERVICE TIME: 6 ASSESSMENT: SIGNATURE: Brook Sweeney LPN PATIENT NAME: Elias Shah DATE: April 13, 2019 TIME: 1:46 PM PAGER/CONTACT #: [id number] 1. 8 sec 2. 7.3 sec 3. 7.2 sec Brook Sweeney LPN Level of Service: NEW PATIENT VISIT LEVEL 5 [[id number]] Letter Text Encounter Status:Closed by WAYNE RIVERS MD on 04/13/19 [facility] HISTORY PHYSICALon HISTORY PHYSICAL HNO ID: [id number] Author: Wayne Rivers Service: ? Author Type: Physician Type: HANDP Filed: 04/13/2019 3:22 PM Note Text: Elias Shah is an 78 year old man referred for evaluation of symptomatic severe aortic stenosis and for consideration for SAVR versus TAVR. He was admitted to [facility] in November with acute illness due to strangulation and ischemia of small bowl due to incarceration in an umbilical hernia. He required emergency bowel resection. His course was complicated by acute renal failure, anemia, and deconditioning. During that hospitalization, severe aortic stenosis was diagnosed by 2D echo (EF68%; aortic valve calcification; peak and mean gradients of 86 and 44 mmHg respectively.). He was told he would eventually need AVR after recovery from his acute illness. PAF was also documented, but anticoagulation was not started due to anemia and guaic + stool. He has had further evaluation by Dr. Ann of [place] [facility]. Left heart catheterization shows no significant coronary artery lesions. 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 Mean AV gradient was 40. He has documented a recent history of worsening dyspnea on exertion, occasional chest pain. Elias Shah endorses very severe fatigue and low energy levels for some time. He denies presyncope or syncope, edema, previous heart attack or heart failure. Following his acute illness in November, he recovered in SNF for total 5 weeks. He is now residing with a sister.His anemia was recently evaluated with EGD and colonoscopy; I do not have reports at hand, but he tells me several polyps were removed. Renal function has improved (Cr 5+ on admit in November; now is 1.19). He is walking well, but does use a walker. CT scan of the brain performed in November showed cerebral volume loss and a small lacunar infract. PAST MEDICAL HISTORY Diagnosis Date - Acute kidney injury (HCC) - Acute metabolic encephalopathy - Anemia - Aortic stenosis - Atrial fibrillation (HCC) - Bowel obstruction (HCC) - Hyperlipidemia - Hypertension - Left bundle branch block - Mitral valve annular calcification - Prolonged QT interval - Vitamin D deficiency PAST SURGICAL HISTORY Procedure Laterality Date - REPAIR UMBILICAL HERNIA 12/04/2018 after bowel perforation done at [facility] Dr. Young REVIEW OF SYSTEMS: GENERAL: Fever - No Chills - No Night sweats - No Changes in weight - No NEUROLOGICAL: Headaches - No Seizures - No Passing out - No History of stroke or mini-stroke - right thalamus, lacunar, by recent CT Head injury or trauma - No Numbness, tingling or sensation of pins and needles - No HEAD, EYES, EARS, NOSE, AND THROAT: Changes in hearing - No Changes in vision - No Nose bleeds - No CARDIOVASCULAR: Chest pain or pressure - Yes Palpitations - No Valvular heart disease - Yes High blood pressure - Yes Irregular heart rate - Yes Heart attack - No Heart failure - No High Cholesterol - Yes History of rheumatic fever - No History of Scarlet fever - No History of atrial fibrillation - Yes RESPIRATORY: Cough - No Wheezing - No Shortness of breath - No Shortness of breath with exertion - Yes Coughing up blood - No Asthma - No Bronchitis - No Blood clot in your lung - No GASTROINTESTINAL: Abdominal discomfort - No Nausea - No Vomiting - No Diarrhea - No Constipation - No Difficulty swallowing - No Pain with swallowing - No Stomach pain after eating - No Passing blood with bowel movement - No Black tarry stool - No, previously' History of stomach ulcers - No Acid reflux or heartburn - No GENITOURINARY: GENITOURINARY: EXTREMITY: Edema (swelling) - No Intermittent claudication (pain with walking) - No MUSCULOSKELETAL: Joint pain - No Joint swelling - No Back pain - No Muscle pain or ache - No Skin: Rash - No Lesions - No Sores - No Ulcers - No Tenderness - No Skin cancer - No HEMATOLOGY: Bleeding disorder - No Easy bruising - No Anemia - Yes Cancer - No Blood transfusions - No Blood clots - No ENDOCRINE: Diabetes - No Thyroid disorder - No PSYCHOLOGICAL: Depression - No Anxiety - No OTHER: I have reviewed Heart Catherization, 2D echocardiogram, Transesophegeal Echocardiogram and Office note of Dr. Ann On examination, he appears well and is breathing comfortably. He walks well with a walker. Vitals signs are BP 158/70 (BP Site: Left Arm) Pulse (!) 55 Resp 20 Ht 6' (1.829 m) Wt 196 lb (88.9 kg) SpO2 94% BMI 26.58 kg/m? . There is no JVD. No cervical or supraclavicular adenopathy is palpated. The chest is symmetrical without deformity. Breath sounds are clear bilaterally. The cardiac rhythm is regular. There is a 2-3/6 systolic crescendo-decrescendo murmur best heard at the right sternal border. The carotid, subclavian, and radial pulses are 2+ and equal bilaterally. The abdomen is soft and non-tender. There are no abdominal masses. There is no hepatojugular reflux. There is no pretibial edema. There is no clubbing or cyanosis. In summary, Elias Shah is an 79 year old man with symptomatic severe . I agree with the recommendation for AVR with a bioprosthesis. I think he would best be served with TAVR given age, comorbidities, and frailty. I have reviewed the left heart cath. I am a little concerned that there may be a significant proximal LAD stenosis near the origin of a septal branch; I will have this reviewed with interventional cardiology. TAVR CT protocol will be ordered. He will see Dr. Green in [facility]. His case will be reviewed at [facility]. Further recommendations to follow. Wayne Rivers MD . Normal [facility] Basic Metabolic Panelon 11-24 Anion gap molar conc 6 Normal [facility] Comment on above: Performed By: #### H EMDF, NH33, PT, CMP3, LIPA4, CK3, TROPN, LACT3, MDIFF, PCAL #### [address] [address] [place] [address] Calcium mass conc 8.0 mg/dL Low 8.4-10.4 [facility] Comment on above: Performed By: #### H EMDF, NH33, PT, CMP3, LIPA4, CK3, TROPN, LACT3, MDIFF, PCAL #### [address] [address] [place], [place] CO2 molar conc 26 mmol/L Normal 22-30 [facility] Comment on above: Performed By: #### H EMDF, NH33, PT, CMP3, LIPA4, CK3, TROPN, LACT3, MDIFF, PCAL #### [address] [address] [place] [address] Glucose mass conc 98 mg/dL Normal 70-100 [facility] Comment on above: Performed By: #### H EMDF, NH33, PT, CMP3, LIPA4, CK3, TROPN, LACT3, MDIFF, PCAL #### [address] [id number] Urea nitrogen mass conc 19 mg/dL Normal 7-20 S [facility] Comment on above: Performed By: #### H EMDF, NH33, PT, CMP3, LIPA4, CK3, TROPN, LACT3, MDIFF, PCAL #### [address] [phone] Creatinine mass conc 1.19 mg/dL Normal 0.52-1.25 [facility] Comment on above: Performed By: #### H EMDF, NH33, PT, CMP3, LIPA4, CK3, TROPN, LACT3, MDIFF, PCAL #### [address] [address] [place], [place] GFR/1.73 sq M predicted among blacks MDRD vol rate/area (S/P/Bld) mL/min/{1.73_m2} Normal >60 [facility] Comment on above: Performed By: #### H EMDF, NH33, PT, CMP3, LIPA4, CK3, TROPN, LACT3, MDIFF, PCAL #### [address] [address] [place], [place] GFR/1.73 sq M predicted among non-blacks MDRD vol rate/area (S/P/Bld) 58.7 mL/min/{1.73_m2} Normal >60 [facility] Comment on above: Result Comment: Sour ce- MDRD equation with creatinine calibration to IDMS(NKDEP) eGFR not recommended for drug dose adjustment Performed By: #### H EMDF, NH33, PT, CMP3, LIPA4, CK3, TROPN, LACT3, MDIFF, PCAL #### [address] [address] [address] [place], [place] Potassium molar conc 4.0 mmol/L Normal 3.5-5.1 [facility] Comment on above: Performed By: #### H EMDF, NH33, PT, CMP3, LIPA4, CK3, TROPN, LACT3, MDIFF, PCAL #### [address] [address] [address] [place], [place] Chloride molar conc 107 mmol/L Normal 98-107 [facility] Comment on above: Performed By: #### H EMDF, NH33, PT, CMP3, LIPA4, CK3, TROPN, LACT3, MDIFF, PCAL #### [address] Sodium molar conc 139 mmol/L Normal 135-145 [facility] Comment on above: Performed By: #### H EMDF, NH33, PT, CMP3, LIPA4, CK3, TROPN, LACT3, MDIFF, PCAL #### [address] Hemogram w/ Autodiffon 12-14 Abs Baso Cnt 0.0 10*3/uL Normal 0.0-0.2 [facility] Comment on above: Performed By: #### H EMDF, NH33, PT, CMP3, LIPA4, CK3, TROPN, LACT3, MDIFF, PCAL #### [address] Abs Neutrophile Cnt 3.6 10*3/uL Normal 1.8-7.0 [facility] Comment on above: Performed By: #### H EMDF, NH33, PT, CMP3, LIPA4, CK3, TROPN, LACT3, MDIFF, PCAL #### [address] Basophils/100 WBC (Bld) 0.4 % Normal 0.0-2.0 S [facility] Comment on above: Performed By: #### H EMDF, NH33, PT, CMP3, LIPA4, CK3, TROPN, LACT3, MDIFF, PCAL #### [address] Eosinophils #/vol (Bld) 0.1 10*3/uL Normal 0.0-0.5 [facility] Comment on above: Performed By: #### H EMDF, NH33, PT, CMP3, LIPA4, CK3, TROPN, LACT3, MDIFF, PCAL #### [address] Eosinophils/100 WBC (Bld) 1.3 % Normal 1.0-6.0 [facility] Comment on above: Performed By: #### H EMDF, NH33, PT, CMP3, LIPA4, CK3, TROPN, LACT3, MDIFF, PCAL #### [address] Erythrocyte distribution width Ratio (RBC) 15.2 % High 11.5-14.5 [facility] Comment on above: Performed By: #### H EMDF, NH33, PT, CMP3, LIPA4, CK3, TROPN, LACT3, MDIFF, PCAL #### [address] Granulocytes/100 WBC (Bld) 55.8 % Normal 40.0-80.0 [facility] Comment on above: Performed By: #### H EMDF, NH33, PT, CMP3, LIPA4, CK3, TROPN, LACT3, MDIFF, PCAL #### [address] Hematocrit Volume Fraction (Bld) 26.7 % Low 40.0-52.0 [facility] Comment on above: Performed By: #### H EMDF, NH33, PT, CMP3, LIPA4, CK3, TROPN, LACT3, MDIFF, PCAL #### [address] Hemoglobin mass conc (Bld) 8.8 g/dL Low 13.0-18.0 [facility] Comment on above: Performed By: #### H EMDF, NH33, PT, CMP3, LIPA4, CK3, TROPN, LACT3, MDIFF, PCAL #### [address] Lymphocytes #/vol (Bld) 1.9 10*3/uL Normal 1.0-4.3 [facility] Comment on above: Performed By: #### H EMDF, NH33, PT, CMP3, LIPA4, CK3, TROPN, LACT3, MDIFF, PCAL #### [address] Lymphocytes/100 WBC (Bld) 29.6 % Normal 20.0-40.0 [facility] Comment on above: Performed By: #### H EMDF, NH33, PT, CMP3, LIPA4, CK3, TROPN, LACT3, MDIFF, PCAL #### [address] MCH Entitic mass (RBC) 28.6 pg Normal 26.0-34.0 [facility] Comment on above: Performed By: #### H EMDF, NH33, PT, CMP3, LIPA4, CK3, TROPN, LACT3, MDIFF, PCAL #### [address] MCHC mass conc (RBC) 32.9 % Normal 32.0-36.0 [facility] Comment on above: Performed By: #### H EMDF, NH33, PT, CMP3, LIPA4, CK3, TROPN, LACT3, MDIFF, PCAL #### [address] MCV Entitic volume (RBC) 86.9 fL Normal 80.0-98.0 [facility] Comment on above: Performed By: #### H EMDF, NH33, PT, CMP3, LIPA4, CK3, TROPN, LACT3, MDIFF, PCAL #### [address] Monocytes #/vol (Bld) 0.8 10*3/uL Normal 0.0-0.8 [facility] Comment on above: Performed By: #### H EMDF, NH33, PT, CMP3, LIPA4, CK3, TROPN, LACT3, MDIFF, PCAL #### [address] Monocytes/100 WBC (Bld) 12.9 % High 2.0-10.0 [facility] Comment on above: Performed By: #### H EMDF, NH33, PT, CMP3, LIPA4, CK3, TROPN, LACT3, MDIFF, PCAL #### [address] Platelet mean volume Entitic volume (Bld) 8.7 fL Normal 7.4-10.4 [facility] Comment on above: Performed By: #### H EMDF, NH33, PT, CMP3, LIPA4, CK3, TROPN, LACT3, MDIFF, PCAL #### [address] Platelets #/vol (Bld) 211 10*3/uL Normal 140-440 [facility] Comment on above: Performed By: #### H EMDF, NH33, PT, CMP3, LIPA4, CK3, TROPN, LACT3, MDIFF, PCAL #### [address] [address] [address] [place], [place] RBC #/vol (Bld) 3.07 10*6/uL Low 4.40-5.90 [facility] Comment on above: Performed By: #### H EMDF, NH33, PT, CMP3, LIPA4, CK3, TROPN, LACT3, MDIFF, PCAL #### [address] [address] [address] [place], [place] WBC #/vol (Bld) 6.4 10*3/uL Normal 3.6-10.7 [facility] Comment on above: Performed By: #### H EMDF, NH33, PT, CMP3, LIPA4, CK3, TROPN, LACT3, MDIFF, PCAL #### [address] Basic Metabolic Panelon -2 Anion gap molar conc 6 Normal [facility] Comment on above: Performed By: #### H EMDF, NH33, PT, CMP3, LIPA4, CK3, TROPN, LACT3, MDIFF, PCAL #### [address] [place], [place] Calcium mass conc 8.0 mg/dL Low 8.4-10.4 [facility] Comment on above: Performed By: #### H EMDF, NH33, PT, CMP3, LIPA4, CK3, TROPN, LACT3, MDIFF, PCAL #### [address] [address] [address] [place], [place] CO2 molar conc 25 mmol/L Normal 22-30 [facility] Comment on above: Performed By: #### H EMDF, NH33, PT, CMP3, LIPA4, CK3, TROPN, LACT3, MDIFF, PCAL #### [address] Glucose mass conc 100 mg/dL Normal 70-100 [facility] Comment on above: Performed By: #### H EMDF, NH33, PT, CMP3, LIPA4, CK3, TROPN, LACT3, MDIFF, PCAL #### [address] Urea nitrogen mass conc 24 mg/dL High 7-20 S [facility] Comment on above: Performed By: #### H EMDF, NH33, PT, CMP3, LIPA4, CK3, TROPN, LACT3, MDIFF, PCAL #### [address] Creatinine mass conc 1.35 mg/dL High 0.52-1.25 [facility] Comment on above: Performed By: #### H EMDF, NH33, PT, CMP3, LIPA4, CK3, TROPN, LACT3, MDIFF, PCAL #### [address] GFR/1.73 sq M predicted among blacks MDRD vol rate/area (S/P/Bld) mL/min/{1.73_m2} Normal >60 [facility] Comment on above: Performed By: #### H EMDF, NH33, PT, CMP3, LIPA4, CK3, TROPN, LACT3, MDIFF, PCAL #### [address] GFR/1.73 sq M predicted among non-blacks MDRD vol rate/area (S/P/Bld) 50.8 mL/min/{1.73_m2} Normal >60 [facility] Comment on above: Result Comment: Sour ce- MDRD equation with creatinine calibration to IDMS(NKDEP) eGFR not recommended for drug dose adjustment Performed By: #### H EMDF, NH33, PT, CMP3, LIPA4, CK3, TROPN, LACT3, MDIFF, PCAL #### [address] Potassium molar conc 3.6 mmol/L Normal 3.5-5.1 [facility] Comment on above: Performed By: #### H EMDF, NH33, PT, CMP3, LIPA4, CK3, TROPN, LACT3, MDIFF, PCAL #### [address] Chloride molar conc 109 mmol/L High 98-107 [facility] Comment on above: Performed By: #### H EMDF, NH33, PT, CMP3, LIPA4, CK3, TROPN, LACT3, MDIFF, PCAL #### [address] Sodium molar conc 141 mmol/L Normal 135-145 [facility] Comment on above: Performed By: #### H EMDF, NH33, PT, CMP3, LIPA4, CK3, TROPN, LACT3, MDIFF, PCAL #### [address] Hemogram w/ Autodiffon 12-13 Abs Baso Cnt 0.0 10*3/uL Normal 0.0-0.2 [facility] Comment on above: Performed By: #### H EMDF, NH33, PT, CMP3, LIPA4, CK3, TROPN, LACT3, MDIFF, PCAL #### [address] Abs Neutrophile Cnt 3.5 10*3/uL Normal 1.8-7.0 [facility] Comment on above: Performed By: #### H EMDF, NH33, PT, CMP3, LIPA4, CK3, TROPN, LACT3, MDIFF, PCAL #### [address] Basophils/100 WBC (Bld) 0.4 % Normal 0.0-2.0 S [facility] Comment on above: Performed By: #### H EMDF, NH33, PT, CMP3, LIPA4, CK3, TROPN, LACT3, MDIFF, PCAL #### [address] Eosinophils #/vol (Bld) 0.1 10*3/uL Normal 0.0-0.5 [facility] Comment on above: Performed By: #### H EMDF, NH33, PT, CMP3, LIPA4, CK3, TROPN, LACT3, MDIFF, PCAL #### [address] Eosinophils/100 WBC (Bld) 2.1 % Normal 1.0-6.0 [facility] Comment on above: Performed By: #### H EMDF, NH33, PT, CMP3, LIPA4, CK3, TROPN, LACT3, MDIFF, PCAL #### [address] Erythrocyte distribution width Ratio (RBC) 14.8 % High 11.5-14.5 [facility] Comment on above: Performed By: #### H EMDF, NH33, PT, CMP3, LIPA4, CK3, TROPN, LACT3, MDIFF, PCAL #### [address] Granulocytes/100 WBC (Bld) 57.7 % Normal 40.0-80.0 [facility] Comment on above: Performed By: #### H EMDF, NH33, PT, CMP3, LIPA4, CK3, TROPN, LACT3, MDIFF, PCAL #### [address] Hematocrit Volume Fraction (Bld) 26.4 % Low 40.0-52.0 [facility] Comment on above: Performed By: #### H EMDF, NH33, PT, CMP3, LIPA4, CK3, TROPN, LACT3, MDIFF, PCAL #### [address] Hemoglobin mass conc (Bld) 8.6 g/dL Low 13.0-18.0 [facility] Comment on above: Performed By: #### H EMDF, NH33, PT, CMP3, LIPA4, CK3, TROPN, LACT3, MDIFF, PCAL #### [address] Lymphocytes #/vol (Bld) 1.7 10*3/uL Normal 1.0-4.3 [facility] Comment on above: Performed By: #### H EMDF, NH33, PT, CMP3, LIPA4, CK3, TROPN, LACT3, MDIFF, PCAL #### [address] Lymphocytes/100 WBC (Bld) 27.9 % Normal 20.0-40.0 [facility] Comment on above: Performed By: #### H EMDF, NH33, PT, CMP3, LIPA4, CK3, TROPN, LACT3, MDIFF, PCAL #### [address] MCH Entitic mass (RBC) 28.7 pg Normal 26.0-34.0 [facility] Comment on above: Performed By: #### H EMDF, NH33, PT, CMP3, LIPA4, CK3, TROPN, LACT3, MDIFF, PCAL #### [address] MCHC mass conc (RBC) 32.7 % Normal 32.0-36.0 [facility] Comment on above: Performed By: #### H EMDF, NH33, PT, CMP3, LIPA4, CK3, TROPN, LACT3, MDIFF, PCAL #### [address] MCV Entitic volume (RBC) 87.8 fL Normal 80.0-98.0 [facility] Comment on above: Performed By: #### H EMDF, NH33, PT, CMP3, LIPA4, CK3, TROPN, LACT3, MDIFF, PCAL #### [address] Monocytes #/vol (Bld) 0.7 10*3/uL Normal 0.0-0.8 [facility] Comment on above: Performed By: #### H EMDF, NH33, PT, CMP3, LIPA4, CK3, TROPN, LACT3, MDIFF, PCAL #### [address] Monocytes/100 WBC (Bld) 11.9 % High 2.0-10.0 S [facility] Comment on above: Performed By: #### H EMDF, NH33, PT, CMP3, LIPA4, CK3, TROPN, LACT3, MDIFF, PCAL #### [address] [address] [address] [place], [place] Platelet mean volume Entitic volume (Bld) 8.6 fL Normal 7.4-10.4 [facility] Comment on above: Performed By: #### H EMDF, NH33, PT, CMP3, LIPA4, CK3, TROPN, LACT3, MDIFF, PCAL #### [address] [address] [address] [place], [place] Platelets #/vol (Bld) 186 10*3/uL Normal 140-440 [facility] Comment on above: Performed By: #### H EMDF, NH33, PT, CMP3, LIPA4, CK3, TROPN, LACT3, MDIFF, PCAL #### [address] [address] [address] [place], [place] RBC #/vol (Bld) 3.01 10*6/uL Low 4.40-5.90 [facility] Comment on above: Performed By: #### H EMDF, NH33, PT, CMP3, LIPA4, CK3, TROPN, LACT3, MDIFF, PCAL #### [address] WBC #/vol (Bld) 6.0 10*3/uL Normal 3.6-10.7 [facility] Comment on above: Performed By: #### H EMDF, NH33, PT, CMP3, LIPA4, CK3, TROPN, LACT3, MDIFF, PCAL #### [address] Basic Metabolic Panelon 01-2 Anion gap molar conc 9 Normal [facility] Comment on above: Performed By: #### H EMDF, NH33, PT, CMP3, LIPA4, CK3, TROPN, LACT3, MDIFF, PCAL #### [address] Calcium mass conc 8.2 mg/dL Low 8.4-10.4 [facility] Comment on above: Performed By: #### H EMDF, NH33, PT, CMP3, LIPA4, CK3, TROPN, LACT3, MDIFF, PCAL #### [address] CO2 molar conc 28 mmol/L Normal 22-30 [facility] Comment on above: Performed By: #### H EMDF, NH33, PT, CMP3, LIPA4, CK3, TROPN, LACT3, MDIFF, PCAL #### [address] Creatinine mass conc 1.43 mg/dL High 0.52-1.25 [facility] Comment on above: Performed By: #### H EMDF, NH33, PT, CMP3, LIPA4, CK3, TROPN, LACT3, MDIFF, PCAL #### [address] GFR/1.73 sq M predicted among blacks MDRD vol rate/area (S/P/Bld) 57.6 mL/min/{1.73_m2} Normal >60 [facility] Comment on above: Performed By: #### H EMDF, NH33, PT, CMP3, LIPA4, CK3, TROPN, LACT3, MDIFF, PCAL #### [address] [address] [place], [place] GFR/1.73 sq M predicted among non-blacks MDRD vol rate/area (S/P/Bld) 47.5 mL/min/{1.73_m2} Normal >60 [facility] Comment on above: Result Comment: Sour ce- MDRD equation with creatinine calibration to IDMS(NKDEP) eGFR not recommended for drug dose adjustment Performed By: #### H EMDF, NH33, PT, CMP3, LIPA4, CK3, TROPN, LACT3, MDIFF, PCAL #### [address] [place], [place] Glucose mass conc 124 mg/dL High 70-100 [facility] Comment on above: Performed By: #### H EMDF, NH33, PT, CMP3, LIPA4, CK3, TROPN, LACT3, MDIFF, PCAL #### [address] [address] [address] [place], [place] Urea nitrogen mass conc 30 mg/dL High 7-20 S [facility] Comment on above: Performed By: #### H EMDF, NH33, PT, CMP3, LIPA4, CK3, TROPN, LACT3, MDIFF, PCAL #### [address] [address] [address] [place], [place] Chloride molar conc 107 mmol/L Normal 98-107 [facility] Comment on above: Performed By: #### H EMDF, NH33, PT, CMP3, LIPA4, CK3, TROPN, LACT3, MDIFF, PCAL #### [address] [address] [address] [place], [place] Potassium molar conc 3.4 mmol/L Low 3.5-5.1 [facility] Comment on above: Performed By: #### H EMDF, NH33, PT, CMP3, LIPA4, CK3, TROPN, LACT3, MDIFF, PCAL #### [address] [address] [address] [place], [place] Sodium molar conc 144 mmol/L Normal 135-145 [facility] Comment on above: Performed By: #### H EMDF, NH33, PT, CMP3, LIPA4, CK3, TROPN, LACT3, MDIFF, PCAL #### [address] [address] [address] [place], [place] Hemogram w/ Autodiffon 12-12 Abs Baso Cnt 0.0 10*3/uL Normal 0.0-0.2 [facility] Comment on above: Performed By: #### H EMDF, NH33, PT, CMP3, LIPA4, CK3, TROPN, LACT3, MDIFF, PCAL #### [address] [address] [address] [place], [place] Abs Neutrophile Cnt 4.5 10*3/uL Normal 1.8-7.0 [facility] Comment on above: Performed By: #### H EMDF, NH33, PT, CMP3, LIPA4, CK3, TROPN, LACT3, MDIFF, PCAL #### [address] [address] [place], [place] Basophils/100 WBC (Bld) 0.3 % Normal 0.0-2.0 [facility] Comment on above: Performed By: #### H EMDF, NH33, PT, CMP3, LIPA4, CK3, TROPN, LACT3, MDIFF, PCAL #### [address] Eosinophils #/vol (Bld) 0.2 10*3/uL Normal 0.0-0.5 [facility] Comment on above: Performed By: #### H EMDF, NH33, PT, CMP3, LIPA4, CK3, TROPN, LACT3, MDIFF, PCAL #### [address] Eosinophils/100 WBC (Bld) 2.3 % Normal 1.0-6.0 [facility] Comment on above: Performed By: #### H EMDF, NH33, PT, CMP3, LIPA4, CK3, TROPN, LACT3, MDIFF, PCAL #### [address] Erythrocyte distribution width Ratio (RBC) 15.0 % High 11.5-14.5 [facility] Comment on above: Performed By: #### H EMDF, NH33, PT, CMP3, LIPA4, CK3, TROPN, LACT3, MDIFF, PCAL #### [address] Granulocytes/100 WBC (Bld) 62.5 % Normal 40.0-80.0 [facility] Comment on above: Performed By: #### H EMDF, NH33, PT, CMP3, LIPA4, CK3, TROPN, LACT3, MDIFF, PCAL #### [address] Hematocrit Volume Fraction (Bld) 29.8 % Low 40.0-52.0 [facility] Comment on above: Performed By: #### H EMDF, NH33, PT, CMP3, LIPA4, CK3, TROPN, LACT3, MDIFF, PCAL #### [address] Hemoglobin mass conc (Bld) 10.0 g/dL Low 13.0-18.0 [facility] Comment on above: Performed By: #### H EMDF, NH33, PT, CMP3, LIPA4, CK3, TROPN, LACT3, MDIFF, PCAL #### [address] Lymphocytes #/vol (Bld) 1.8 10*3/uL Normal 1.0-4.3 [facility] Comment on above: Performed By: #### H EMDF, NH33, PT, CMP3, LIPA4, CK3, TROPN, LACT3, MDIFF, PCAL #### [address] Lymphocytes/100 WBC (Bld) 25.1 % Normal 20.0-40.0 [facility] Comment on above: Performed By: #### H EMDF, NH33, PT, CMP3, LIPA4, CK3, TROPN, LACT3, MDIFF, PCAL #### [address] MCH Entitic mass (RBC) 29.0 pg Normal 26.0-34.0 [facility] Comment on above: Performed By: #### H EMDF, NH33, PT, CMP3, LIPA4, CK3, TROPN, LACT3, MDIFF, PCAL #### [address] MCHC mass conc (RBC) 33.4 % Normal 32.0-36.0 [facility] Comment on above: Performed By: #### H EMDF, NH33, PT, CMP3, LIPA4, CK3, TROPN, LACT3, MDIFF, PCAL #### [address] MCV Entitic volume (RBC) 86.8 fL Normal 80.0-98.0 [facility] Comment on above: Performed By: #### H EMDF, NH33, PT, CMP3, LIPA4, CK3, TROPN, LACT3, MDIFF, PCAL #### [address] [address] [place], [place] Monocytes #/vol (Bld) 0.7 10*3/uL Normal 0.0-0.8 [facility] Comment on above: Performed By: #### H EMDF, NH33, PT, CMP3, LIPA4, CK3, TROPN, LACT3, MDIFF, PCAL #### [address] Monocytes/100 WBC (Bld) 9.8 % Normal 2.0-10.0 [facility] Comment on above: Performed By: #### H EMDF, NH33, PT, CMP3, LIPA4, CK3, TROPN, LACT3, MDIFF, PCAL #### [address] Platelet mean volume Entitic volume (Bld) 8.6 fL Normal 7.4-10.4 [facility] Comment on above: Performed By: #### H EMDF, NH33, PT, CMP3, LIPA4, CK3, TROPN, LACT3, MDIFF, PCAL #### [address] Platelets #/vol (Bld) 216 10*3/uL Normal 140-440 [facility] Comment on above: Performed By: #### H EMDF, NH33, PT, CMP3, LIPA4, CK3, TROPN, LACT3, MDIFF, PCAL #### [address] RBC #/vol (Bld) 3.43 10*6/uL Low 4.40-5.90 [facility] Comment on above: Performed By: #### H EMDF, NH33, PT, CMP3, LIPA4, CK3, TROPN, LACT3, MDIFF, PCAL #### [address] [address] [address] [place], [place] WBC #/vol (Bld) 7.2 10*3/uL Normal 3.6-10.7 [facility] Comment on above: Performed By: #### H EMDF, NH33, PT, CMP3, LIPA4, CK3, TROPN, LACT3, MDIFF, PCAL #### [address] [address] [address] [place], [place] Magnesiumon 12-12-2018 Magnesium mass conc 1.8 mg/dL Normal 1.6-2.3 [facility] Comment on above: Performed By: #### H EMDF, NH33, PT, CMP3, LIPA4, CK3, TROPN, LACT3, MDIFF, PCAL #### [address] [address] [place] [place], [place] Basic Metabolic Panelon 11-23 Anion gap molar conc 6 Normal [facility] Comment on above: Performed By: #### H EMDF, NH33, PT, CMP3, LIPA4, CK3, TROPN, LACT3, MDIFF, PCAL #### [address] [address] [address] [place], [place] Calcium mass conc 8.1 mg/dL Low 8.4-10.4 [facility] Comment on above: Performed By: #### H EMDF, NH33, PT, CMP3, LIPA4, CK3, TROPN, LACT3, MDIFF, PCAL #### [address] [address] [place], [place] CO2 molar conc 26 mmol/L Normal 22-30 [facility] Comment on above: Performed By: #### H EMDF, NH33, PT, CMP3, LIPA4, CK3, TROPN, LACT3, MDIFF, PCAL #### [address] [address] [place] [place], [place] Glucose mass conc 95 mg/dL Normal 70-100 [facility] Comment on above: Performed By: #### H EMDF, NH33, PT, CMP3, LIPA4, CK3, TROPN, LACT3, MDIFF, PCAL #### [address] [address] [place], [place] Urea nitrogen mass conc 33 mg/dL High 7-20 S [facility] Comment on above: Performed By: #### H EMDF, NH33, PT, CMP3, LIPA4, CK3, TROPN, LACT3, MDIFF, PCAL #### [address] [address] [place], [place] Creatinine mass conc 1.52 mg/dL High 0.52-1.25 [facility] Comment on above: Performed By: #### H EMDF, NH33, PT, CMP3, LIPA4, CK3, TROPN, LACT3, MDIFF, PCAL #### [address] [address] [place], [place] GFR/1.73 sq M predicted among blacks MDRD vol rate/area (S/P/Bld) 53.7 mL/min/{1.73_m2} Normal >60 [facility] Comment on above: Performed By: #### H EMDF, NH33, PT, CMP3, LIPA4, CK3, TROPN, LACT3, MDIFF, PCAL #### [address] [address] [place], [place] GFR/1.73 sq M predicted among non-blacks MDRD vol rate/area (S/P/Bld) 44.3 mL/min/{1.73_m2} Normal >60 [facility] Comment on above: Result Comment: Sour ce- MDRD equation with creatinine calibration to IDMS(NKDEP) eGFR not recommended for drug dose adjustment Performed By: #### H EMDF, NH33, PT, CMP3, LIPA4, CK3, TROPN, LACT3, MDIFF, PCAL #### [address] Potassium molar conc 3.5 mmol/L Normal 3.5-5.1 [facility] Comment on above: Performed By: #### H EMDF, NH33, PT, CMP3, LIPA4, CK3, TROPN, LACT3, MDIFF, PCAL #### [address] Sodium molar conc 142 mmol/L Normal 135-145 [facility] Comment on above: Performed By: #### H EMDF, NH33, PT, CMP3, LIPA4, CK3, TROPN, LACT3, MDIFF, PCAL #### [address] Chloride molar conc 109 mmol/L High 98-107 [facility] Comment on above: Performed By: #### H EMDF, NH33, PT, CMP3, LIPA4, CK3, TROPN, LACT3, MDIFF, PCAL #### [address] Hemogram w/ Autodiffon 12-11 Abs Baso Cnt 0.0 10*3/uL Normal 0.0-0.2 [facility] Comment on above: Performed By: #### H EMDF, NH33, PT, CMP3, LIPA4, CK3, TROPN, LACT3, MDIFF, PCAL #### [address] Abs Neutrophile Cnt 4.5 10*3/uL Normal 1.8-7.0 [facility] Comment on above: Performed By: #### H EMDF, NH33, PT, CMP3, LIPA4, CK3, TROPN, LACT3, MDIFF, PCAL #### [address] Basophils/100 WBC (Bld) 0.3 % Normal 0.0-2.0 S [facility] Comment on above: Performed By: #### H EMDF, NH33, PT, CMP3, LIPA4, CK3, TROPN, LACT3, MDIFF, PCAL #### [address] Eosinophils #/vol (Bld) 0.2 10*3/uL Normal 0.0-0.5 [facility] Comment on above: Performed By: #### H EMDF, NH33, PT, CMP3, LIPA4, CK3, TROPN, LACT3, MDIFF, PCAL #### [address] Eosinophils/100 WBC (Bld) 2.9 % Normal 1.0-6.0 [facility] Comment on above: Performed By: #### H EMDF, NH33, PT, CMP3, LIPA4, CK3, TROPN, LACT3, MDIFF, PCAL #### [address] Erythrocyte distribution width Ratio (RBC) 15.1 % High 11.5-14.5 [facility] Comment on above: Performed By: #### H EMDF, NH33, PT, CMP3, LIPA4, CK3, TROPN, LACT3, MDIFF, PCAL #### [address] Granulocytes/100 WBC (Bld) 60.8 % Normal 40.0-80.0 [facility] Comment on above: Performed By: #### H EMDF, NH33, PT, CMP3, LIPA4, CK3, TROPN, LACT3, MDIFF, PCAL #### [address] Hematocrit Volume Fraction (Bld) 27.2 % Low 40.0-52.0 [facility] Comment on above: Performed By: #### H EMDF, NH33, PT, CMP3, LIPA4, CK3, TROPN, LACT3, MDIFF, PCAL #### [address] Hemoglobin mass conc (Bld) 9.1 g/dL Low 13.0-18.0 [facility] Comment on above: Performed By: #### H EMDF, NH33, PT, CMP3, LIPA4, CK3, TROPN, LACT3, MDIFF, PCAL #### [address] Lymphocytes #/vol (Bld) 1.7 10*3/uL Normal 1.0-4.3 [facility] Comment on above: Performed By: #### H EMDF, NH33, PT, CMP3, LIPA4, CK3, TROPN, LACT3, MDIFF, PCAL #### [address] [address] [place], [place] Lymphocytes/100 WBC (Bld) 22.8 % Normal 20.0-40.0 [facility] Comment on above: Performed By: #### H EMDF, NH33, PT, CMP3, LIPA4, CK3, TROPN, LACT3, MDIFF, PCAL #### [address] MCH Entitic mass (RBC) 28.9 pg Normal 26.0-34.0 [facility] Comment on above: Performed By: #### H EMDF, NH33, PT, CMP3, LIPA4, CK3, TROPN, LACT3, MDIFF, PCAL #### [address] MCHC mass conc (RBC) 33.3 % Normal 32.0-36.0 [facility] Comment on above: Performed By: #### H EMDF, NH33, PT, CMP3, LIPA4, CK3, TROPN, LACT3, MDIFF, PCAL #### [address] MCV Entitic volume (RBC) 86.8 fL Normal 80.0-98.0 [facility] Comment on above: Performed By: #### H EMDF, NH33, PT, CMP3, LIPA4, CK3, TROPN, LACT3, MDIFF, PCAL #### [address] Monocytes #/vol (Bld) 1.0 10*3/uL High 0.0-0.8 [facility] Comment on above: Performed By: #### H EMDF, NH33, PT, CMP3, LIPA4, CK3, TROPN, LACT3, MDIFF, PCAL #### [address] [address] [place] [place], [place] Monocytes/100 WBC (Bld) 13.2 % High 2.0-10.0 S [facility] Comment on above: Performed By: #### H EMDF, NH33, PT, CMP3, LIPA4, CK3, TROPN, LACT3, MDIFF, PCAL #### [address] [address] [place], [place] Platelet mean volume Entitic volume (Bld) 8.5 fL Normal 7.4-10.4 [facility] Comment on above: Performed By: #### H EMDF, NH33, PT, CMP3, LIPA4, CK3, TROPN, LACT3, MDIFF, PCAL #### [address] Platelets #/vol (Bld) 185 10*3/uL Normal 140-440 [facility] Comment on above: Performed By: #### H EMDF, NH33, PT, CMP3, LIPA4, CK3, TROPN, LACT3, MDIFF, PCAL #### [address] RBC #/vol (Bld) 3.14 10*6/uL Low 4.40-5.90 [facility] Comment on above: Performed By: #### H EMDF, NH33, PT, CMP3, LIPA4, CK3, TROPN, LACT3, MDIFF, PCAL #### [address] [address] [place], [place] WBC #/vol (Bld) 7.4 10*3/uL Normal 3.6-10.7 [facility] Comment on above: Performed By: #### H EMDF, NH33, PT, CMP3, LIPA4, CK3, TROPN, LACT3, MDIFF, PCAL #### [address] Magnesiumon 12-11-2018 Magnesium mass conc 1.8 mg/dL Normal 1.6-2.3 [facility] Comment on above: Performed By: #### H EMDF, NH33, PT, CMP3, LIPA4, CK3, TROPN, LACT3, MDIFF, PCAL #### [address] Basic Metabolic Panelon 11-23 Anion gap molar conc 5 Normal [facility] Comment on above: Performed By: #### H EMDF, NH33, PT, CMP3, LIPA4, CK3, TROPN, LACT3, MDIFF, PCAL #### [address] [address] [place] [place], [place] Calcium mass conc 8.3 mg/dL Low 8.4-10.4 [facility] Comment on above: Performed By: #### H EMDF, NH33, PT, CMP3, LIPA4, CK3, TROPN, LACT3, MDIFF, PCAL #### [address] [address] [place], [place] CO2 molar conc 29 mmol/L Normal 22-30 [facility] Comment on above: Performed By: #### H EMDF, NH33, PT, CMP3, LIPA4, CK3, TROPN, LACT3, MDIFF, PCAL #### [address] [address] [place], [place] Glucose mass conc 111 mg/dL High 70-100 [facility] Comment on above: Performed By: #### H EMDF, NH33, PT, CMP3, LIPA4, CK3, TROPN, LACT3, MDIFF, PCAL #### [address] [address] [place], [place] Urea nitrogen mass conc 30 mg/dL High 7-20 S [facility] Comment on above: Performed By: #### H EMDF, NH33, PT, CMP3, LIPA4, CK3, TROPN, LACT3, MDIFF, PCAL #### [address] Creatinine mass conc 1.40 mg/dL High 0.52-1.25 [facility] Comment on above: Performed By: #### H EMDF, NH33, PT, CMP3, LIPA4, CK3, TROPN, LACT3, MDIFF, PCAL #### [address] [address] [place] [address] GFR/1.73 sq M predicted among blacks MDRD vol rate/area (S/P/Bld) 59.0 mL/min/{1.73_m2} Normal >60 [facility] Comment on above: Performed By: #### H EMDF, NH33, PT, CMP3, LIPA4, CK3, TROPN, LACT3, MDIFF, PCAL #### [address] [address] [place] [address] GFR/1.73 sq M predicted among non-blacks MDRD vol rate/area (S/P/Bld) 48.7 mL/min/{1.73_m2} Normal >60 [facility] Comment on above: Result Comment: Sour ce- MDRD equation with creatinine calibration to IDMS(NKDEP) eGFR not recommended for drug dose adjustment Performed By: #### H EMDF, NH33, PT, CMP3, LIPA4, CK3, TROPN, LACT3, MDIFF, PCAL #### [address] [address] [place] [address] Chloride molar conc 107 mmol/L Normal 98-107 [facility] Comment on above: Performed By: #### H EMDF, NH33, PT, CMP3, LIPA4, CK3, TROPN, LACT3, MDIFF, PCAL #### [address] [address] [place] [address] Potassium molar conc 3.5 mmol/L Normal 3.5-5.1 [facility] Comment on above: Performed By: #### H EMDF, NH33, PT, CMP3, LIPA4, CK3, TROPN, LACT3, MDIFF, PCAL #### [address] [address] Sodium molar conc 141 mmol/L Normal 135-145 [facility] Comment on above: Performed By: #### H EMDF, NH33, PT, CMP3, LIPA4, CK3, TROPN, LACT3, MDIFF, PCAL #### [address] [place] Hemogram w/ Autodiffon 12-10 Abs Baso Cnt 0.0 10*3/uL Normal 0.0-0.2 [facility] Comment on above: Performed By: #### H EMDF, NH33, PT, CMP3, LIPA4, CK3, TROPN, LACT3, MDIFF, PCAL #### [address] Abs Neutrophile Cnt 4.7 10*3/uL Normal 1.8-7.0 [facility] Comment on above: Performed By: #### H EMDF, NH33, PT, CMP3, LIPA4, CK3, TROPN, LACT3, MDIFF, PCAL #### [address] Basophils/100 WBC (Bld) 0.5 % Normal 0.0-2.0 S [facility] Comment on above: Performed By: #### H EMDF, NH33, PT, CMP3, LIPA4, CK3, TROPN, LACT3, MDIFF, PCAL #### [address] Eosinophils #/vol (Bld) 0.3 10*3/uL Normal 0.0-0.5 [facility] Comment on above: Performed By: #### H EMDF, NH33, PT, CMP3, LIPA4, CK3, TROPN, LACT3, MDIFF, PCAL #### [address] Eosinophils/100 WBC (Bld) 3.7 % Normal 1.0-6.0 [facility] Comment on above: Performed By: #### H EMDF, NH33, PT, CMP3, LIPA4, CK3, TROPN, LACT3, MDIFF, PCAL #### [address] Erythrocyte distribution width Ratio (RBC) 15.1 % High 11.5-14.5 [facility] Comment on above: Performed By: #### H EMDF, NH33, PT, CMP3, LIPA4, CK3, TROPN, LACT3, MDIFF, PCAL #### [address] Granulocytes/100 WBC (Bld) 57.9 % Normal 40.0-80.0 [facility] Comment on above: Performed By: #### H EMDF, NH33, PT, CMP3, LIPA4, CK3, TROPN, LACT3, MDIFF, PCAL #### [address] Hematocrit Volume Fraction (Bld) 31.4 % Low 40.0-52.0 [facility] Comment on above: Performed By: #### H EMDF, NH33, PT, CMP3, LIPA4, CK3, TROPN, LACT3, MDIFF, PCAL #### [address] Hemoglobin mass conc (Bld) 10.4 g/dL Low 13.0-18.0 [facility] Comment on above: Performed By: #### H EMDF, NH33, PT, CMP3, LIPA4, CK3, TROPN, LACT3, MDIFF, PCAL #### [address] Lymphocytes #/vol (Bld) 1.9 10*3/uL Normal 1.0-4.3 [facility] Comment on above: Performed By: #### H EMDF, NH33, PT, CMP3, LIPA4, CK3, TROPN, LACT3, MDIFF, PCAL #### [address] Lymphocytes/100 WBC (Bld) 23.1 % Normal 20.0-40.0 [facility] Comment on above: Performed By: #### H EMDF, NH33, PT, CMP3, LIPA4, CK3, TROPN, LACT3, MDIFF, PCAL #### [address] MCH Entitic mass (RBC) 28.7 pg Normal 26.0-34.0 [facility] Comment on above: Performed By: #### H EMDF, NH33, PT, CMP3, LIPA4, CK3, TROPN, LACT3, MDIFF, PCAL #### [address] MCHC mass conc (RBC) 33.0 % Normal 32.0-36.0 [facility] Comment on above: Performed By: #### H EMDF, NH33, PT, CMP3, LIPA4, CK3, TROPN, LACT3, MDIFF, PCAL #### [address] MCV Entitic volume (RBC) 86.9 fL Normal 80.0-98.0 [facility] Comment on above: Performed By: #### H EMDF, NH33, PT, CMP3, LIPA4, CK3, TROPN, LACT3, MDIFF, PCAL #### [address] Monocytes #/vol (Bld) 1.2 10*3/uL High 0.0-0.8 [facility] Comment on above: Performed By: #### H EMDF, NH33, PT, CMP3, LIPA4, CK3, TROPN, LACT3, MDIFF, PCAL #### [address] Monocytes/100 WBC (Bld) 14.8 % High 2.0-10.0 S [facility] Comment on above: Performed By: #### H EMDF, NH33, PT, CMP3, LIPA4, CK3, TROPN, LACT3, MDIFF, PCAL #### [address] Platelet mean volume Entitic volume (Bld) 8.6 fL Normal 7.4-10.4 [facility] Comment on above: Performed By: #### H EMDF, NH33, PT, CMP3, LIPA4, CK3, TROPN, LACT3, MDIFF, PCAL #### [address] Platelets #/vol (Bld) 206 10*3/uL Normal 140-440 [facility] Comment on above: Performed By: #### H EMDF, NH33, PT, CMP3, LIPA4, CK3, TROPN, LACT3, MDIFF, PCAL #### [address] RBC #/vol (Bld) 3.61 10*6/uL Low 4.40-5.90 [facility] Comment on above: Performed By: #### H EMDF, NH33, PT, CMP3, LIPA4, CK3, TROPN, LACT3, MDIFF, PCAL #### [address] WBC #/vol (Bld) 8.1 10*3/uL Normal 3.6-10.7 [facility] Comment on above: Performed By: #### H EMDF, NH33, PT, CMP3, LIPA4, CK3, TROPN, LACT3, MDIFF, PCAL #### [address] Magnesiumon 12-10-2018 Magnesium mass conc 1.9 mg/dL Normal 1.6-2.3 [facility] Comment on above: Performed By: #### H EMDF, NH33, PT, CMP3, LIPA4, CK3, TROPN, LACT3, MDIFF, PCAL #### [address] Basic Metabolic Panelon 11-23 Calcium mass conc 8.0 mg/dL Low 8.4-10.4 [facility] Comment on above: Performed By: #### H EMDF, NH33, PT, CMP3, LIPA4, CK3, TROPN, LACT3, MDIFF, PCAL #### [address] Glucose mass conc 128 mg/dL High 70-100 [facility] Comment on above: Performed By: #### H EMDF, NH33, PT, CMP3, LIPA4, CK3, TROPN, LACT3, MDIFF, PCAL #### [address] [address] [place] [place], [place] Anion gap molar conc 5 Normal [facility] Comment on above: Performed By: #### H EMDF, NH33, PT, CMP3, LIPA4, CK3, TROPN, LACT3, MDIFF, PCAL #### [address] [address] [place] [place], [place] CO2 molar conc 33 mmol/L High 22-30 [facility] Comment on above: Performed By: #### H EMDF, NH33, PT, CMP3, LIPA4, CK3, TROPN, LACT3, MDIFF, PCAL #### [address] [address] [place] [place], [place] Creatinine mass conc 1.43 mg/dL High 0.52-1.25 [facility] Comment on above: Performed By: #### H EMDF, NH33, PT, CMP3, LIPA4, CK3, TROPN, LACT3, MDIFF, PCAL #### [address] [address] [place] [place], [place] GFR/1.73 sq M predicted among blacks MDRD vol rate/area (S/P/Bld) 57.6 mL/min/{1.73_m2} Normal >60 [facility] Comment on above: Performed By: #### H EMDF, NH33, PT, CMP3, LIPA4, CK3, TROPN, LACT3, MDIFF, PCAL #### [address] [address] [place] [place], [place] GFR/1.73 sq M predicted among non-blacks MDRD vol rate/area (S/P/Bld) 47.5 mL/min/{1.73_m2} Normal >60 [facility] Comment on above: Result Comment: Sour ce- MDRD equation with creatinine calibration to IDMS(NKDEP) eGFR not recommended for drug dose adjustment Performed By: #### H EMDF, NH33, PT, CMP3, LIPA4, CK3, TROPN, LACT3, MDIFF, PCAL #### [address] [address] [place] [place], [place] Urea nitrogen mass conc 37 mg/dL High 7-20 S [facility] Comment on above: Performed By: #### H EMDF, NH33, PT, CMP3, LIPA4, CK3, TROPN, LACT3, MDIFF, PCAL #### [facility] [address] [place] [address] Potassium molar conc 3.3 mmol/L Low 3.5-5.1 [facility] Comment on above: Performed By: #### H EMDF, NH33, PT, CMP3, LIPA4, CK3, TROPN, LACT3, MDIFF, PCAL #### [facility] [address] [place], [place] Chloride molar conc 107 mmol/L Normal 98-107 [facility] Comment on above: Performed By: #### H EMDF, NH33, PT, CMP3, LIPA4, CK3, TROPN, LACT3, MDIFF, PCAL #### [facility] [address] [place], [place] Sodium molar conc 144 mmol/L Normal 135-145 [facility] Comment on above: Performed By: #### H EMDF, NH33, PT, CMP3, LIPA4, CK3, TROPN, LACT3, MDIFF, PCAL #### [facility] [address] [place], [place] CR Abdomen APon 12-09-2018 CR Abdomen AP Patient Name: ELIAS SHAH Diagnostic Radiology Exam Date/Time 12/09/2018 08:27:17 EST Exam CR Abdomen AP Ordering Physician JIM MILLER Accession Number [id number] CPT4 Codes 74123 () Reason For Exam ileus Report Indication: Ileus. Supine views of the abdomen and pelvis are compared to the study dated 12/08/2018. Skin livia project over the midline of the lower abdomen. Mild to moderate gas distended small bowel loops are visualized, similar to the previous study. Gas is identified in nondilated colon. Evaluation for free air is limited without upright or decubitus view. No suspicious intra-abdominal or intrapelvic calcifications are visualized. Vascular calcifications are visualized. There are degenerative changes of the lumbar spine and hips. Report Dictated on Final Dictated: 12/09/2018 11:38 am Dictating Physician: DO LAMB ANTHONY Signed Date and Time: 12/09/2018 11:40 am Signed by: DO LAMB ANTHONY Transcribed Date and Time: 12/09/2018 11:38 Normal [facility] Hemogram w/ Autodiffon 12-09 Abs Baso Cnt 0.0 10*3/uL Normal 0.0-0.2 [facility] Comment on above: Performed By: #### H EMDF, NH33, PT, CMP3, LIPA4, CK3, TROPN, LACT3, MDIFF, PCAL #### [address] [address] Abs Neutrophile Cnt 4.0 10*3/uL Normal 1.8-7.0 [facility] Comment on above: Performed By: #### H EMDF, NH33, PT, CMP3, LIPA4, CK3, TROPN, LACT3, MDIFF, PCAL #### [address] [address] Basophils/100 WBC (Bld) 0.2 % Normal 0.0-2.0 [facility] Comment on above: Performed By: #### H EMDF, NH33, PT, CMP3, LIPA4, CK3, TROPN, LACT3, MDIFF, PCAL #### [address] [address] Eosinophils #/vol (Bld) 0.2 10*3/uL Normal 0.0-0.5 [facility] Comment on above: Performed By: #### H EMDF, NH33, PT, CMP3, LIPA4, CK3, TROPN, LACT3, MDIFF, PCAL #### [address] [address] Eosinophils/100 WBC (Bld) 2.9 % Normal 1.0-6.0 [facility] Comment on above: Performed By: #### H EMDF, NH33, PT, CMP3, LIPA4, CK3, TROPN, LACT3, MDIFF, PCAL #### [address] Erythrocyte distribution width Ratio (RBC) 15.4 % High 11.5-14.5 [facility] Comment on above: Performed By: #### H EMDF, NH33, PT, CMP3, LIPA4, CK3, TROPN, LACT3, MDIFF, PCAL #### [address] Granulocytes/100 WBC (Bld) 55.9 % Normal 40.0-80.0 [facility] Comment on above: Performed By: #### H EMDF, NH33, PT, CMP3, LIPA4, CK3, TROPN, LACT3, MDIFF, PCAL #### [address] Hematocrit Volume Fraction (Bld) 28.7 % Low 40.0-52.0 [facility] Comment on above: Performed By: #### H EMDF, NH33, PT, CMP3, LIPA4, CK3, TROPN, LACT3, MDIFF, PCAL #### [address] Hemoglobin mass conc (Bld) 9.4 g/dL Low 13.0-18.0 [facility] Comment on above: Performed By: #### H EMDF, NH33, PT, CMP3, LIPA4, CK3, TROPN, LACT3, MDIFF, PCAL #### [address] Lymphocytes #/vol (Bld) 1.6 10*3/uL Normal 1.0-4.3 [facility] Comment on above: Performed By: #### H EMDF, NH33, PT, CMP3, LIPA4, CK3, TROPN, LACT3, MDIFF, PCAL #### [address] Lymphocytes/100 WBC (Bld) 23.2 % Normal 20.0-40.0 [facility] Comment on above: Performed By: #### H EMDF, NH33, PT, CMP3, LIPA4, CK3, TROPN, LACT3, MDIFF, PCAL #### [address] MCH Entitic mass (RBC) 28.6 pg Normal 26.0-34.0 [facility] Comment on above: Performed By: #### H EMDF, NH33, PT, CMP3, LIPA4, CK3, TROPN, LACT3, MDIFF, PCAL #### [address] MCHC mass conc (RBC) 32.8 % Normal 32.0-36.0 [facility] Comment on above: Performed By: #### H EMDF, NH33, PT, CMP3, LIPA4, CK3, TROPN, LACT3, MDIFF, PCAL #### [address] MCV Entitic volume (RBC) 87.1 fL Normal 80.0-98.0 [facility] Comment on above: Performed By: #### H EMDF, NH33, PT, CMP3, LIPA4, CK3, TROPN, LACT3, MDIFF, PCAL #### [address] Monocytes #/vol (Bld) 1.3 10*3/uL High 0.0-0.8 [facility] Comment on above: Performed By: #### H EMDF, NH33, PT, CMP3, LIPA4, CK3, TROPN, LACT3, MDIFF, PCAL #### [address] Monocytes/100 WBC (Bld) 17.8 % High 2.0-10.0 [facility] Comment on above: Performed By: #### H EMDF, NH33, PT, CMP3, LIPA4, CK3, TROPN, LACT3, MDIFF, PCAL #### [address] Platelet mean volume Entitic volume (Bld) 8.8 fL Normal 7.4-10.4 [facility] Comment on above: Performed By: #### H EMDF, NH33, PT, CMP3, LIPA4, CK3, TROPN, LACT3, MDIFF, PCAL #### [address] Platelets #/vol (Bld) 179 10*3/uL Normal 140-440 [facility] Comment on above: Performed By: #### H EMDF, NH33, PT, CMP3, LIPA4, CK3, TROPN, LACT3, MDIFF, PCAL #### [address] RBC #/vol (Bld) 3.30 10*6/uL Low 4.40-5.90 [facility] Comment on above: Performed By: #### H EMDF, NH33, PT, CMP3, LIPA4, CK3, TROPN, LACT3, MDIFF, PCAL #### [address] WBC #/vol (Bld) 7.1 10*3/uL Normal 3.6-10.7 [facility] Comment on above: Performed By: #### H EMDF, NH33, PT, CMP3, LIPA4, CK3, TROPN, LACT3, MDIFF, PCAL #### [address] Magnesiumon 12-09-2018 Magnesium mass conc 2.1 mg/dL Normal 1.6-2.3 [facility] Comment on above: Performed By: #### H EMDF, NH33, PT, CMP3, LIPA4, CK3, TROPN, LACT3, MDIFF, PCAL #### [address] Phosphoruson 12-09-2018 Phosphate mass conc 2.7 mg/dL Normal 2.5-4.5 [facility] Comment on above: Performed By: #### H EMDF, NH33, PT, CMP3, LIPA4, CK3, TROPN, LACT3, MDIFF, PCAL #### [place] [address] [address] [place], [place] Uric Acidon 12-09-2018 Urate mass conc 5.7 mg/dL Normal 2.5-8.5 [facility] Comment on above: Performed By: #### H EMDF, NH33, PT, CMP3, LIPA4, CK3, TROPN, LACT3, MDIFF, PCAL #### [address] [place] [address] [place], [place] Basic Metabolic Panelon 11-23 Calcium mass conc 8.5 mg/dL Normal 8.4-10.4 [facility] Comment on above: Performed By: #### H EMDF, NH33, PT, CMP3, LIPA4, CK3, TROPN, LACT3, MDIFF, PCAL #### [address] Glucose mass conc 83 mg/dL Normal 70-100 [facility] Comment on above: Performed By: #### H EMDF, NH33, PT, CMP3, LIPA4, CK3, TROPN, LACT3, MDIFF, PCAL #### [address] [place] [address] [place], [place] Urea nitrogen mass conc 53 mg/dL High 7-20 [facility] Comment on above: Performed By: #### H EMDF, NH33, PT, CMP3, LIPA4, CK3, TROPN, LACT3, MDIFF, PCAL #### [place] [address] [place], [place] Anion gap molar conc 6 Normal [facility] Comment on above: Performed By: #### H EMDF, NH33, PT, CMP3, LIPA4, CK3, TROPN, LACT3, MDIFF, PCAL #### [place] [address] [place], [place] CO2 molar conc 34 mmol/L High 22-30 [facility] Comment on above: Performed By: #### H EMDF, NH33, PT, CMP3, LIPA4, CK3, TROPN, LACT3, MDIFF, PCAL #### [address] Creatinine mass conc 1.81 mg/dL High 0.52-1.25 [facility] Comment on above: Performed By: #### H EMDF, NH33, PT, CMP3, LIPA4, CK3, TROPN, LACT3, MDIFF, PCAL #### [address] GFR/1.73 sq M predicted among blacks MDRD vol rate/area (S/P/Bld) 43.9 mL/min/{1.73_m2} Normal >60 [facility] Comment on above: Performed By: #### H EMDF, NH33, PT, CMP3, LIPA4, CK3, TROPN, LACT3, MDIFF, PCAL #### [address] GFR/1.73 sq M predicted among non-blacks MDRD vol rate/area (S/P/Bld) 36.2 mL/min/{1.73_m2} Normal >60 [facility] Comment on above: Result Comment: Sour ce- MDRD equation with creatinine calibration to IDMS(NKDEP) eGFR not recommended for drug dose adjustment Performed By: #### H EMDF, NH33, PT, CMP3, LIPA4, CK3, TROPN, LACT3, MDIFF, PCAL #### [address] Potassium molar conc 3.3 mmol/L Low 3.5-5.1 [facility] Comment on above: Performed By: #### H EMDF, NH33, PT, CMP3, LIPA4, CK3, TROPN, LACT3, MDIFF, PCAL #### [address] Chloride molar conc 105 mmol/L Normal 98-107 [facility] Comment on above: Performed By: #### H EMDF, NH33, PT, CMP3, LIPA4, CK3, TROPN, LACT3, MDIFF, PCAL #### [address] [address] Sodium molar conc 145 mmol/L Normal 135-145 [facility] Comment on above: Performed By: #### H EMDF, NH33, PT, CMP3, LIPA4, CK3, TROPN, LACT3, MDIFF, PCAL #### [facility] [address] [place] [address] CR Abdomen APon 12-08-2018 CR Abdomen AP Patient Name: ELIAS SHAH Diagnostic Radiology Exam Date/Time 12/08/2018 09:33:11 EST Exam CR Abdomen AP Ordering Physician JIM MILLER Accession Number [id number] CPT4 Codes 59801 () Reason For Exam ileus Report Indication: Possible ileus. Supine view of the abdomen and pelvis timed 0924 was obtained with no prior studies available for comparison. [place] overlie the midline of the lower abdomen. Mild to moderate gas distended small bowel loops are identified within the mid abdomen and left hemiabdomen. Gas and stool are identified in nondilated colon. The findings may represent ileus or partial small bowel obstruction. Evaluation for free air is limited without upright or decubitus view. There are degenerative changes of the lumbar spine and hips. Vascular calcifications are visualized. Follow-up is recommended. Report Dictated on Final Dictated: 12/08/2018 10:18 am Dictating Physician: DO LAMB ANTHONY Signed Date and Time: 12/08/2018 10:20 am Signed by: DO LAMB ANTHONY Transcribed Date and Time: 12/08/2018 10:18 Normal [facility] CR Chest Portableon 12-08-19 19 CR Chest Portable Patient Name: ELIAS SHAH Diagnostic Radiology Exam Date/Time 12/08/2018 06:59:28 EST Exam CR Chest Portable Ordering Physician KEE GARNICA HEATHER Accession Number [id number] CPT4 Codes 86544 () Reason For Exam pna Report EXAM TYPE: RADIOLOGIC EXAMINATION, CHEST, SINGLE VIEW FRONTAL (CXR SINGLE VIEW) EXAM DATE AND TIME: 12/08/2018 6:59 AM EST INDICATION: Respiratory distress COMPARISON: 12/07/2018 TECHNIQUE: A single frontal view of the thorax was obtained and reviewed. Special views: None. IMPRESSION: 1. Lines/Tubes/Devices/H ardware: Right jugular catheter stable. NG has been removed. Monitoring leads.. Please confirm function of devices/catheters clinically. 2. Lungs: Improved edema. Persistent volume loss left lower lobe. Underlying consolidation effusion or atelectasis possible. 3. Pleura: Effusions possible. No definite pneumothorax. 4. Heart and mediastinum: Limited. 5. Upper abdomen: No acute process seen. Report Dictated on Final Dictated: 12/08/2018 7:10 am Dictating Physician: MD RIVERS JOHN Signed Date and Time: 12/08/2018 7:12 am Signed by: MD RIVERS JOHN Transcribed Date and Time: 12/08/2018 7:10 Normal [facility] Hemogram w/ Autodiffon 12-08 Erythrocyte distribution width Ratio (RBC) 15.0 % High 11.5-14.5 [facility] Comment on above: Performed By: #### H EMDF, NH33, PT, CMP3, LIPA4, CK3, TROPN, LACT3, MDIFF, PCAL #### [address] Hematocrit Volume Fraction (Bld) 31.5 % Low 40.0-52.0 [facility] Comment on above: Performed By: #### H EMDF, NH33, PT, CMP3, LIPA4, CK3, TROPN, LACT3, MDIFF, PCAL #### [address] Hemoglobin mass conc (Bld) 10.3 g/dL Low 13.0-18.0 [facility] Comment on above: Performed By: #### H EMDF, NH33, PT, CMP3, LIPA4, CK3, TROPN, LACT3, MDIFF, PCAL #### [address] MCH Entitic mass (RBC) 28.5 pg Normal 26.0-34.0 [facility] Comment on above: Performed By: #### H EMDF, NH33, PT, CMP3, LIPA4, CK3, TROPN, LACT3, MDIFF, PCAL #### [address] MCHC mass conc (RBC) 32.6 % Normal 32.0-36.0 [facility] Comment on above: Performed By: #### H EMDF, NH33, PT, CMP3, LIPA4, CK3, TROPN, LACT3, MDIFF, PCAL #### [address] MCV Entitic volume (RBC) 87.3 fL Normal 80.0-98.0 [facility] Comment on above: Performed By: #### H EMDF, NH33, PT, CMP3, LIPA4, CK3, TROPN, LACT3, MDIFF, PCAL #### [address] Platelet mean volume Entitic volume (Bld) 8.7 fL Normal 7.4-10.4 [facility] Comment on above: Performed By: #### H EMDF, NH33, PT, CMP3, LIPA4, CK3, TROPN, LACT3, MDIFF, PCAL #### [address] Platelets #/vol (Bld) 202 10*3/uL Normal 140-440 [facility] Comment on above: Performed By: #### H EMDF, NH33, PT, CMP3, LIPA4, CK3, TROPN, LACT3, MDIFF, PCAL #### [address] RBC #/vol (Bld) 3.61 10*6/uL Low 4.40-5.90 [facility] Comment on above: Performed By: #### H EMDF, NH33, PT, CMP3, LIPA4, CK3, TROPN, LACT3, MDIFF, PCAL #### [address] WBC #/vol (Bld) 7.4 10*3/uL Normal 3.6-10.7 [facility] Comment on above: Performed By: #### H EMDF, NH33, PT, CMP3, LIPA4, CK3, TROPN, LACT3, MDIFF, PCAL #### [address] [place] [address] [address] [place], [place] Magnesiumon 12-08-2018 Magnesium mass conc 2.4 mg/dL High 1.6-2.3 [facility] Comment on above: Performed By: #### H EMDF, NH33, PT, CMP3, LIPA4, CK3, TROPN, LACT3, MDIFF, PCAL #### [place] [address] [address] [place], [place] Manual Diffon 12-08-2018 Abs Neutrophile Cnt 5.5 10*3/uL Normal 2.2-8.2 [facility] Comment on above: Performed By: #### H EMDF, NH33, PT, CMP3, LIPA4, CK3, TROPN, LACT3, MDIFF, PCAL #### [place] [address] [address] [place], [place] Basophils/100 WBC (Bld) 0 % Normal 0-2 S [facility] Comment on above: Performed By: #### H EMDF, NH33, PT, CMP3, LIPA4, CK3, TROPN, LACT3, MDIFF, PCAL #### [address] [place] [address] [place], [place] Comment: SLIDE SCANNED Normal [facility] Comment on above: Performed By: #### H EMDF, NH33, PT, CMP3, LIPA4, CK3, TROPN, LACT3, MDIFF, PCAL #### [place] [address] [place], [place] Eosinophils #/vol (Bld) 0.1 10*3/uL Normal 0.0-0.5 [facility] Comment on above: Performed By: #### H EMDF, NH33, PT, CMP3, LIPA4, CK3, TROPN, LACT3, MDIFF, PCAL #### [address] Eosinophils/100 WBC (Bld) 1 % Normal [facility] Comment on above: Performed By: #### H EMDF, NH33, PT, CMP3, LIPA4, CK3, TROPN, LACT3, MDIFF, PCAL #### [address] Lymphocytes #/vol (Bld) 0.8 10*3/uL Low 1.1-4.5 [facility] Comment on above: Performed By: #### H EMDF, NH33, PT, CMP3, LIPA4, CK3, TROPN, LACT3, MDIFF, PCAL #### [address] Lymphocytes/100 WBC (Bld) 11 % Normal [facility] Comment on above: Performed By: #### H EMDF, NH33, PT, CMP3, LIPA4, CK3, TROPN, LACT3, MDIFF, PCAL #### [address] Monocytes #/vol (Bld) 1.0 10*3/uL Normal 0.2-1.1 [facility] Comment on above: Performed By: #### H EMDF, NH33, PT, CMP3, LIPA4, CK3, TROPN, LACT3, MDIFF, PCAL #### [address] Monocytes/100 WBC (Bld) 14 % Normal [facility] Comment on above: Performed By: #### H EMDF, NH33, PT, CMP3, LIPA4, CK3, TROPN, LACT3, MDIFF, PCAL #### [address] Ovalocytes SLIGHT Normal [facility] Comment on above: Performed By: #### H EMDF, NH33, PT, CMP3, LIPA4, CK3, TROPN, LACT3, MDIFF, PCAL #### [address] Poikilocytosis SLIGHT Normal [facility] Comment on above: Performed By: #### H EMDF, NH33, PT, CMP3, LIPA4, CK3, TROPN, LACT3, MDIFF, PCAL #### [address] RBC morphology finding Nom (Bld) ABNORMAL Normal [facility] Comment on above: Performed By: #### H EMDF, NH33, PT, CMP3, LIPA4, CK3, TROPN, LACT3, MDIFF, PCAL #### [address] Seg Neutrophils 74 % Normal [facility] Comment on above: Performed By: #### H EMDF, NH33, PT, CMP3, LIPA4, CK3, TROPN, LACT3, MDIFF, PCAL #### [address] Abs Baso Cnt 0.0 10*3/uL Normal 0.0-0.2 [facility] Comment on above: Performed By: #### H EMDF, NH33, PT, CMP3, LIPA4, CK3, TROPN, LACT3, MDIFF, PCAL #### [address] Bands 0 % Normal 0-3 [facility] Comment on above: Performed By: #### H EMDF, NH33, PT, CMP3, LIPA4, CK3, TROPN, LACT3, MDIFF, PCAL #### [address] Cells counted 100 Normal [facility] Comment on above: Performed By: #### H EMDF, NH33, PT, CMP3, LIPA4, CK3, TROPN, LACT3, MDIFF, PCAL #### [address] Phosphoruson 12-08-2018 Phosphate mass conc 2.8 mg/dL Normal 2.5-4.5 [facility] Comment on above: Performed By: #### H EMDF, NH33, PT, CMP3, LIPA4, CK3, TROPN, LACT3, MDIFF, PCAL #### [address] [place] [address] [address] [place], [place] Basic Metabolic Panelon 11-23 Anion gap molar conc 7 Normal [facility] Comment on above: Performed By: #### H EMDF, NH33, PT, CMP3, LIPA4, CK3, TROPN, LACT3, MDIFF, PCAL #### [address] [place] [address] [address] [place], [place] Calcium mass conc 8.6 mg/dL Normal 8.4-10.4 [facility] Comment on above: Performed By: #### H EMDF, NH33, PT, CMP3, LIPA4, CK3, TROPN, LACT3, MDIFF, PCAL #### [place] [address] [address] [place], [place] CO2 molar conc 36 mmol/L High 22-30 [facility] Comment on above: Performed By: #### H EMDF, NH33, PT, CMP3, LIPA4, CK3, TROPN, LACT3, MDIFF, PCAL #### [place] [address] [address] [place], [place] Glucose mass conc 89 mg/dL Normal 70-100 [facility] Comment on above: Performed By: #### H EMDF, NH33, PT, CMP3, LIPA4, CK3, TROPN, LACT3, MDIFF, PCAL #### [place] [address] [address] [place], [place] Urea nitrogen mass conc 75 mg/dL High 7-20 S [facility] Comment on above: Performed By: #### H EMDF, NH33, PT, CMP3, LIPA4, CK3, TROPN, LACT3, MDIFF, PCAL #### [address] [place] [address] [place], [place] Creatinine mass conc 2.75 mg/dL High 0.52-1.25 [facility] Comment on above: Performed By: #### H EMDF, NH33, PT, CMP3, LIPA4, CK3, TROPN, LACT3, MDIFF, PCAL #### [place] [address] [address] [place], [place] GFR/1.73 sq M predicted among blacks MDRD vol rate/area (S/P/Bld) 27.1 mL/min/{1.73_m2} Normal >60 [facility] Comment on above: Performed By: #### H EMDF, NH33, PT, CMP3, LIPA4, CK3, TROPN, LACT3, MDIFF, PCAL #### [address] [place] [address] [place], [place] GFR/1.73 sq M predicted among non-blacks MDRD vol rate/area (S/P/Bld) 22.3 mL/min/{1.73_m2} Normal >60 [facility] Comment on above: Result Comment: Sour ce- MDRD equation with creatinine calibration to IDMS(NKDEP) eGFR not recommended for drug dose adjustment Performed By: #### H EMDF, NH33, PT, CMP3, LIPA4, CK3, TROPN, LACT3, MDIFF, PCAL #### [address] Potassium molar conc 3.3 mmol/L Low 3.5-5.1 [facility] Comment on above: Performed By: #### H EMDF, NH33, PT, CMP3, LIPA4, CK3, TROPN, LACT3, MDIFF, PCAL #### [address] Sodium molar conc 142 mmol/L Normal 135-145 [facility] Comment on above: Performed By: #### H EMDF, NH33, PT, CMP3, LIPA4, CK3, TROPN, LACT3, MDIFF, PCAL #### [address] Chloride molar conc 100 mmol/L Normal 98-107 [facility] Comment on above: Performed By: #### H EMDF, NH33, PT, CMP3, LIPA4, CK3, TROPN, LACT3, MDIFF, PCAL #### [address] CR Chest Portableon 12-07-19 19 CR Chest Portable Patient Name: ELIAS SHAH Diagnostic Radiology Exam Date/Time 12/07/2018 07:13:20 EST Exam CR Chest Portable Ordering Physician KEE GARNICA HEATHER Accession Number [id number] CPT4 Codes 29396 () Reason For Exam pna Report Portable chest 12/07/2018: Clinical Information: Pneumonia. Findings: A single AP portable view of the chest was obtained at 633 hours. Comparison was made to the prior study prior day. The various lines and tubes are unchanged. There is haziness in both lung bases suggesting layering of bilateral pleural effusions. There is a mild degree of pulmonary vascular congestion. Report Dictated on Final Dictated: 12/07/2018 7:47 am Dictating Physician: MD BRICEÑO RISA Signed Date and Time: 12/07/2018 7:47 am Signed by: MD BRICEÑO RISA Transcribed Date and Time: 12/07/2018 7:47 Normal [facility] CULTURE URINEon 12-07-2018 CULTURE URINE CULTURE URINE --> Status: F No growth (<1,000 CFU/ml). Normal [facility] Comment on above: Order Comment: Speci men Source Comment:Urine, straight catheter Performed By: #### H EMDF, NH33, PT, CMP3, LIPA4, CK3, TROPN, LACT3, MDIFF, PCAL #### [address] [id number] Hemogram w/ Autodiffon 12-07 Abs Baso Cnt 0.0 10*3/uL Normal 0.0-0.2 [facility] Comment on above: Performed By: #### H EMDF, NH33, PT, CMP3, LIPA4, CK3, TROPN, LACT3, MDIFF, PCAL #### [facility] [address] [place] [address] Abs Neutrophile Cnt 5.0 10*3/uL Normal 1.8-7.0 [facility] Comment on above: Performed By: #### H EMDF, NH33, PT, CMP3, LIPA4, CK3, TROPN, LACT3, MDIFF, PCAL #### [address] [address] Basophils/100 WBC (Bld) 0.4 % Normal 0.0-2.0 S [facility] Comment on above: Performed By: #### H EMDF, NH33, PT, CMP3, LIPA4, CK3, TROPN, LACT3, MDIFF, PCAL #### [address] [address] Eosinophils #/vol (Bld) 0.0 10*3/uL Normal 0.0-0.5 [facility] Comment on above: Performed By: #### H EMDF, NH33, PT, CMP3, LIPA4, CK3, TROPN, LACT3, MDIFF, PCAL #### [address] [address] Eosinophils/100 WBC (Bld) 0.3 % Low 1.0-6.0 [facility] Comment on above: Performed By: #### H EMDF, NH33, PT, CMP3, LIPA4, CK3, TROPN, LACT3, MDIFF, PCAL #### [address] Erythrocyte distribution width Ratio (RBC) 15.4 % High 11.5-14.5 [facility] Comment on above: Performed By: #### H EMDF, NH33, PT, CMP3, LIPA4, CK3, TROPN, LACT3, MDIFF, PCAL #### [address] Granulocytes/100 WBC (Bld) 63.5 % Normal 40.0-80.0 [facility] Comment on above: Performed By: #### H EMDF, NH33, PT, CMP3, LIPA4, CK3, TROPN, LACT3, MDIFF, PCAL #### [address] Hematocrit Volume Fraction (Bld) 32.4 % Low 40.0-52.0 [facility] Comment on above: Performed By: #### H EMDF, NH33, PT, CMP3, LIPA4, CK3, TROPN, LACT3, MDIFF, PCAL #### [address] Hemoglobin mass conc (Bld) 10.7 g/dL Low 13.0-18.0 [facility] Comment on above: Performed By: #### H EMDF, NH33, PT, CMP3, LIPA4, CK3, TROPN, LACT3, MDIFF, PCAL #### [address] Lymphocytes #/vol (Bld) 1.4 10*3/uL Normal 1.0-4.3 [facility] Comment on above: Performed By: #### H EMDF, NH33, PT, CMP3, LIPA4, CK3, TROPN, LACT3, MDIFF, PCAL #### [address] Lymphocytes/100 WBC (Bld) 18.5 % Low 20.0-40.0 [facility] Comment on above: Performed By: #### H EMDF, NH33, PT, CMP3, LIPA4, CK3, TROPN, LACT3, MDIFF, PCAL #### [address] MCH Entitic mass (RBC) 28.7 pg Normal 26.0-34.0 [facility] Comment on above: Performed By: #### H EMDF, NH33, PT, CMP3, LIPA4, CK3, TROPN, LACT3, MDIFF, PCAL #### [address] MCHC mass conc (RBC) 33.0 % Normal 32.0-36.0 [facility] Comment on above: Performed By: #### H EMDF, NH33, PT, CMP3, LIPA4, CK3, TROPN, LACT3, MDIFF, PCAL #### [address] MCV Entitic volume (RBC) 87.2 fL Normal 80.0-98.0 [facility] Comment on above: Performed By: #### H EMDF, NH33, PT, CMP3, LIPA4, CK3, TROPN, LACT3, MDIFF, PCAL #### [address] Monocytes #/vol (Bld) 1.4 10*3/uL High 0.0-0.8 [facility] Comment on above: Performed By: #### H EMDF, NH33, PT, CMP3, LIPA4, CK3, TROPN, LACT3, MDIFF, PCAL #### [address] Monocytes/100 WBC (Bld) 17.3 % High 2.0-10.0 [facility] Comment on above: Performed By: #### H EMDF, NH33, PT, CMP3, LIPA4, CK3, TROPN, LACT3, MDIFF, PCAL #### [address] Platelet mean volume Entitic volume (Bld) 8.5 fL Normal 7.4-10.4 [facility] Comment on above: Performed By: #### H EMDF, NH33, PT, CMP3, LIPA4, CK3, TROPN, LACT3, MDIFF, PCAL #### [address] Platelets #/vol (Bld) 217 10*3/uL Normal 140-440 [facility] Comment on above: Performed By: #### H EMDF, NH33, PT, CMP3, LIPA4, CK3, TROPN, LACT3, MDIFF, PCAL #### [address] RBC #/vol (Bld) 3.72 10*6/uL Low 4.40-5.90 [facility] Comment on above: Performed By: #### H EMDF, NH33, PT, CMP3, LIPA4, CK3, TROPN, LACT3, MDIFF, PCAL #### [address] [place], [place] WBC #/vol (Bld) 7.8 10*3/uL Normal 3.6-10.7 [facility] Comment on above: Performed By: #### H EMDF, NH33, PT, CMP3, LIPA4, CK3, TROPN, LACT3, MDIFF, PCAL #### [address] [address] [address] [place], [place] Magnesiumon 12-07-2018 Magnesium mass conc 2.9 mg/dL High 1.6-2.3 [facility] Comment on above: Performed By: #### H EMDF, NH33, PT, CMP3, LIPA4, CK3, TROPN, LACT3, MDIFF, PCAL #### [address] [place] [address] [address] [place], [place] Phosphoruson 12-07-2018 Phosphate mass conc 3.2 mg/dL Normal 2.5-4.5 [facility] Comment on above: Performed By: #### H EMDF, NH33, PT, CMP3, LIPA4, CK3, TROPN, LACT3, MDIFF, PCAL #### [address] [address] [place], [place] Urinalysis,Macroon 9 Appearance Nom (U) cloudy Normal Clear [facility] Comment on above: Performed By: #### H EMDF, NH33, PT, CMP3, LIPA4, CK3, TROPN, LACT3, MDIFF, PCAL #### [address] [address] [place], [place] Bilirubin,Ur Negative Normal Negative [facility] Comment on above: Performed By: #### H EMDF, NH33, PT, CMP3, LIPA4, CK3, TROPN, LACT3, MDIFF, PCAL #### [address] [address] [place], [place] Color Nom (U) red Normal Lt. Yellow [facility] Comment on above: Performed By: #### H EMDF, NH33, PT, CMP3, LIPA4, CK3, TROPN, LACT3, MDIFF, PCAL #### [facility] [address] [place], [place] Glucose Ql (U) 100 mg/dL Normal Negative [facility] Comment on above: Performed By: #### H EMDF, NH33, PT, CMP3, LIPA4, CK3, TROPN, LACT3, MDIFF, PCAL #### [facility] [address] [place], [place] Ketone,Urine 3 + mg/dL Normal Negative [facility] Comment on above: Performed By: #### H EMDF, NH33, PT, CMP3, LIPA4, CK3, TROPN, LACT3, MDIFF, PCAL #### [address] [address] [address] [place], [place] Nitrite Ql (U) Negative Normal Negative [facility] Comment on above: Performed By: #### H EMDF, NH33, PT, CMP3, LIPA4, CK3, TROPN, LACT3, MDIFF, PCAL #### [address] [address] [address] [place], [place] Occult Blood,Ur 250 {RBC}/uL Normal Negative [facility] Comment on above: Performed By: #### H EMDF, NH33, PT, CMP3, LIPA4, CK3, TROPN, LACT3, MDIFF, PCAL #### [address] [address] [address] [place], [place] pH (U) 8.0 Normal 5.0-8.0 [facility] Comment on above: Performed By: #### H EMDF, NH33, PT, CMP3, LIPA4, CK3, TROPN, LACT3, MDIFF, PCAL #### [address] [address] [address] [place], [place] Protein mass conc (U) 75 mg/dL Normal Negative [facility] Comment on above: Performed By: #### H EMDF, NH33, PT, CMP3, LIPA4, CK3, TROPN, LACT3, MDIFF, PCAL #### [address] [address] [address] [place], [place] Specific [place],Urine 1.010 Normal 1.005-1.030 [facility] Comment on above: Performed By: #### H EMDF, NH33, PT, CMP3, LIPA4, CK3, TROPN, LACT3, MDIFF, PCAL #### [place] [address] [address] [address] [place], [place] Urobilinogen Qn (U) NORM Normal 0-1 [facility] Comment on above: Performed By: #### H EMDF, NH33, PT, CMP3, LIPA4, CK3, TROPN, LACT3, MDIFF, PCAL #### [address] [address] [address] [place], [place] WBC #/vol (Bld) 1 + Normal Negative [facility] Comment on above: Performed By: #### H EMDF, NH33, PT, CMP3, LIPA4, CK3, TROPN, LACT3, MDIFF, PCAL #### [address] [address] [place], [place] Urinalysis,Microscopicon Bacteria LM.HPF #/area (Urine sed) Moderate (6-50) Normal Negative [facility] Comment on above: Performed By: #### H EMDF, NH33, PT, CMP3, LIPA4, CK3, TROPN, LACT3, MDIFF, PCAL #### [address] [address] [address] [place], [place] Epithelial cells LM.HPF #/area (Urine sed) 0 - 2 Normal 3-5 [facility] Comment on above: Performed By: #### H EMDF, NH33, PT, CMP3, LIPA4, CK3, TROPN, LACT3, MDIFF, PCAL #### [address] [address] [address] [place], [place] RBC LM.HPF #/area (Urine sed) 51 - 100 Normal 0-2 [facility] Comment on above: Performed By: #### H EMDF, NH33, PT, CMP3, LIPA4, CK3, TROPN, LACT3, MDIFF, PCAL #### [address] [address] [place], [place] Volume,Urine 8-12 ml Normal [facility] Comment on above: Performed By: #### H EMDF, NH33, PT, CMP3, LIPA4, CK3, TROPN, LACT3, MDIFF, PCAL #### [address] [address] [place], [place] WBC LM.HPF #/area (Urine sed) 3 - 5 Normal 0-5 [facility] Comment on above: Performed By: #### H EMDF, NH33, PT, CMP3, LIPA4, CK3, TROPN, LACT3, MDIFF, PCAL #### [address] [address] [place], [place] Basic Metabolic Panelon 11-23 Anion gap molar conc 6 Normal [facility] Comment on above: Performed By: #### H EMDF, NH33, PT, CMP3, LIPA4, CK3, TROPN, LACT3, MDIFF, PCAL #### [address] [address] [place], [place] Calcium mass conc 8.6 mg/dL Normal 8.4-10.4 [facility] Comment on above: Performed By: #### H EMDF, NH33, PT, CMP3, LIPA4, CK3, TROPN, LACT3, MDIFF, PCAL #### [address] [address] [place], [place] CO2 molar conc 37 mmol/L High 22-30 [facility] Comment on above: Performed By: #### H EMDF, NH33, PT, CMP3, LIPA4, CK3, TROPN, LACT3, MDIFF, PCAL #### [address] Glucose mass conc 97 mg/dL Normal 70-100 [facility] Comment on above: Performed By: #### H EMDF, NH33, PT, CMP3, LIPA4, CK3, TROPN, LACT3, MDIFF, PCAL #### [address] [address] [place], [place] Urea nitrogen mass conc 77 mg/dL High 7-20 [facility] Comment on above: Performed By: #### H EMDF, NH33, PT, CMP3, LIPA4, CK3, TROPN, LACT3, MDIFF, PCAL #### [address] Creatinine mass conc 3.07 mg/dL High 0.52-1.25 [facility] Comment on above: Performed By: #### H EMDF, NH33, PT, CMP3, LIPA4, CK3, TROPN, LACT3, MDIFF, PCAL #### [address] GFR/1.73 sq M predicted among blacks MDRD vol rate/area (S/P/Bld) 23.8 mL/min/{1.73_m2} Normal >60 [facility] Comment on above: Performed By: #### H EMDF, NH33, PT, CMP3, LIPA4, CK3, TROPN, LACT3, MDIFF, PCAL #### [address] GFR/1.73 sq M predicted among non-blacks MDRD vol rate/area (S/P/Bld) 19.7 mL/min/{1.73_m2} Normal >60 [facility] Comment on above: Result Comment: Sour ce- MDRD equation with creatinine calibration to IDMS(NKDEP) eGFR not recommended for drug dose adjustment Performed By: #### H EMDF, NH33, PT, CMP3, LIPA4, CK3, TROPN, LACT3, MDIFF, PCAL #### [address] Potassium molar conc 3.4 mmol/L Low 3.5-5.1 [facility] Comment on above: Performed By: #### H EMDF, NH33, PT, CMP3, LIPA4, CK3, TROPN, LACT3, MDIFF, PCAL #### [address] Sodium molar conc 142 mmol/L Normal 135-145 [facility] Comment on above: Performed By: #### H EMDF, NH33, PT, CMP3, LIPA4, CK3, TROPN, LACT3, MDIFF, PCAL #### [address] [address] [place], [place] Chloride molar conc 99 mmol/L Normal 98-107 [facility] Comment on above: Performed By: #### H EMDF, NH33, PT, CMP3, LIPA4, CK3, TROPN, LACT3, MDIFF, PCAL #### [address] [address] [place], [place] Calcium mass conc 8.7 mg/dL Normal 8.4-10.4 [facility] Comment on above: Performed By: #### H EMDF, NH33, PT, CMP3, LIPA4, CK3, TROPN, LACT3, MDIFF, PCAL #### [address] [address] [address] [place], [place] Glucose mass conc 106 mg/dL High 70-100 [facility] Comment on above: Performed By: #### H EMDF, NH33, PT, CMP3, LIPA4, CK3, TROPN, LACT3, MDIFF, PCAL #### [address] [address] [address] [place], [place] Anion gap molar conc 7 Normal [facility] Comment on above: Performed By: #### H EMDF, NH33, PT, CMP3, LIPA4, CK3, TROPN, LACT3, MDIFF, PCAL #### [address] [address] [address] [place], [place] CO2 molar conc 36 mmol/L High 22-30 [facility] Comment on above: Performed By: #### H EMDF, NH33, PT, CMP3, LIPA4, CK3, TROPN, LACT3, MDIFF, PCAL #### [address] [address] [place], [place] Creatinine mass conc 3.58 mg/dL High 0.52-1.25 [facility] Comment on above: Performed By: #### H EMDF, NH33, PT, CMP3, LIPA4, CK3, TROPN, LACT3, MDIFF, PCAL #### [address] [address] [place], [place] GFR/1.73 sq M predicted among blacks MDRD vol rate/area (S/P/Bld) 20.0 mL/min/{1.73_m2} Normal >60 [facility] Comment on above: Performed By: #### H EMDF, NH33, PT, CMP3, LIPA4, CK3, TROPN, LACT3, MDIFF, PCAL #### [facility] [address] [place] [address] GFR/1.73 sq M predicted among non-blacks MDRD vol rate/area (S/P/Bld) 16.5 mL/min/{1.73_m2} Normal >60 [facility] Comment on above: Result Comment: Sour ce- MDRD equation with creatinine calibration to IDMS(NKDEP) eGFR not recommended for drug dose adjustment Performed By: #### H EMDF, NH33, PT, CMP3, LIPA4, CK3, TROPN, LACT3, MDIFF, PCAL #### [address] [address] [place], [place] Urea nitrogen mass conc 79 mg/dL High 7-20 S [facility] Comment on above: Performed By: #### H EMDF, NH33, PT, CMP3, LIPA4, CK3, TROPN, LACT3, MDIFF, PCAL #### [address] [place] [address] Chloride molar conc 97 mmol/L Low 98-107 [facility] Comment on above: Performed By: #### H EMDF, NH33, PT, CMP3, LIPA4, CK3, TROPN, LACT3, MDIFF, PCAL #### [address] [address] [place] [address] Potassium molar conc 3.5 mmol/L Normal 3.5-5.1 [facility] Comment on above: Performed By: #### H EMDF, NH33, PT, CMP3, LIPA4, CK3, TROPN, LACT3, MDIFF, PCAL #### [address] [address] [place] [address] Sodium molar conc 140 mmol/L Normal 135-145 [facility] Comment on above: Performed By: #### H EMDF, NH33, PT, CMP3, LIPA4, CK3, TROPN, LACT3, MDIFF, PCAL #### [address] Calcium mass conc 8.7 mg/dL Normal 8.4-10.4 [facility] Comment on above: Performed By: #### H EMDF, NH33, PT, CMP3, LIPA4, CK3, TROPN, LACT3, MDIFF, PCAL #### [address] [address] [place], [place] Glucose mass conc 106 mg/dL High 70-100 [facility] Comment on above: Performed By: #### H EMDF, NH33, PT, CMP3, LIPA4, CK3, TROPN, LACT3, MDIFF, PCAL #### [address] Anion gap molar conc 9 Normal [facility] Comment on above: Performed By: #### H EMDF, NH33, PT, CMP3, LIPA4, CK3, TROPN, LACT3, MDIFF, PCAL #### [address] [address] [place], [place] CO2 molar conc 35 mmol/L High 22-30 [facility] Comment on above: Performed By: #### H EMDF, NH33, PT, CMP3, LIPA4, CK3, TROPN, LACT3, MDIFF, PCAL #### [address] Creatinine mass conc 3.92 mg/dL High 0.52-1.25 [facility] Comment on above: Performed By: #### H EMDF, NH33, PT, CMP3, LIPA4, CK3, TROPN, LACT3, MDIFF, PCAL #### [address] GFR/1.73 sq M predicted among blacks MDRD vol rate/area (S/P/Bld) 18.0 mL/min/{1.73_m2} Normal >60 [facility] Comment on above: Performed By: #### H EMDF, NH33, PT, CMP3, LIPA4, CK3, TROPN, LACT3, MDIFF, PCAL #### [address] [address] [place], [place] GFR/1.73 sq M predicted among non-blacks MDRD vol rate/area (S/P/Bld) 14.8 mL/min/{1.73_m2} Normal >60 [facility] Comment on above: Result Comment: Sour ce- MDRD equation with creatinine calibration to IDMS(NKDEP) eGFR not recommended for drug dose adjustment Performed By: #### H EMDF, NH33, PT, CMP3, LIPA4, CK3, TROPN, LACT3, MDIFF, PCAL #### [address] [address] [place], [place] Urea nitrogen mass conc 82 mg/dL High 7-20 S [facility] Comment on above: Performed By: #### H EMDF, NH33, PT, CMP3, LIPA4, CK3, TROPN, LACT3, MDIFF, PCAL #### [address] [address] [place], [place] Chloride molar conc 96 mmol/L Low 98-107 [facility] Comment on above: Performed By: #### H EMDF, NH33, PT, CMP3, LIPA4, CK3, TROPN, LACT3, MDIFF, PCAL #### [address] [address] [place], [place] Potassium molar conc 4.1 mmol/L Normal 3.5-5.1 [facility] Comment on above: Performed By: #### H EMDF, NH33, PT, CMP3, LIPA4, CK3, TROPN, LACT3, MDIFF, PCAL #### [address] Sodium molar conc 140 mmol/L Normal 135-145 [facility] Comment on above: Performed By: #### H EMDF, NH33, PT, CMP3, LIPA4, CK3, TROPN, LACT3, MDIFF, PCAL #### [address] [address] [place], [place] Calcium mass conc 9.1 mg/dL Normal 8.4-10.4 [facility] Comment on above: Performed By: #### H EMDF, NH33, PT, CMP3, LIPA4, CK3, TROPN, LACT3, MDIFF, PCAL #### [address] [address] [place], [place] Glucose mass conc 123 mg/dL High 70-100 [facility] Comment on above: Performed By: #### H EMDF, NH33, PT, CMP3, LIPA4, CK3, TROPN, LACT3, MDIFF, PCAL #### [address] [address] [place], [place] Urea nitrogen mass conc 83 mg/dL High 7-20 S [facility] Comment on above: Performed By: #### H EMDF, NH33, PT, CMP3, LIPA4, CK3, TROPN, LACT3, MDIFF, PCAL #### [address] [address] [place], [place] Anion gap molar conc 11 Normal [facility] Comment on above: Performed By: #### H EMDF, NH33, PT, CMP3, LIPA4, CK3, TROPN, LACT3, MDIFF, PCAL #### [address] [address] [address] [place], [place] CO2 molar conc 33 mmol/L High 22-30 [facility] Comment on above: Performed By: #### H EMDF, NH33, PT, CMP3, LIPA4, CK3, TROPN, LACT3, MDIFF, PCAL #### [address] [address] [place], [place] Creatinine mass conc 4.28 mg/dL High 0.52-1.25 [facility] Comment on above: Performed By: #### H EMDF, NH33, PT, CMP3, LIPA4, CK3, TROPN, LACT3, MDIFF, PCAL #### [address] [address] [place], [place] GFR/1.73 sq M predicted among blacks MDRD vol rate/area (S/P/Bld) 16.2 mL/min/{1.73_m2} Normal >60 [facility] Comment on above: Performed By: #### H EMDF, NH33, PT, CMP3, LIPA4, CK3, TROPN, LACT3, MDIFF, PCAL #### [address] GFR/1.73 sq M predicted among non-blacks MDRD vol rate/area (S/P/Bld) 13.4 mL/min/{1.73_m2} Normal >60 [facility] Comment on above: Result Comment: Sour ce- MDRD equation with creatinine calibration to IDMS(NKDEP) eGFR not recommended for drug dose adjustment Performed By: #### H EMDF, NH33, PT, CMP3, LIPA4, CK3, TROPN, LACT3, MDIFF, PCAL #### [address] Potassium molar conc 3.4 mmol/L Low 3.5-5.1 [facility] Comment on above: Performed By: #### H EMDF, NH33, PT, CMP3, LIPA4, CK3, TROPN, LACT3, MDIFF, PCAL #### [address] Chloride molar conc 95 mmol/L Low 98-107 [facility] Comment on above: Performed By: #### H EMDF, NH33, PT, CMP3, LIPA4, CK3, TROPN, LACT3, MDIFF, PCAL #### [address] Sodium molar conc 139 mmol/L Normal 135-145 [facility] Comment on above: Performed By: #### H EMDF, NH33, PT, CMP3, LIPA4, CK3, TROPN, LACT3, MDIFF, PCAL #### [address] CR Chest Portableon 12-06-19 19 CR Chest Portable Patient Name: ELIAS SHAH Diagnostic Radiology Exam Date/Time 12/06/2018 06:25:16 EST Exam CR Chest Portable Ordering Physician KEE GARNICA HEATHER Accession Number [id number] CPT4 Codes 38174 () Reason For Exam pna Report CHEST PORTABLE: Indication: Inpatient; pneumonia Views: Portable frontal Comparison: 12/05/2018 at 12:33 Time: 5:58 on 12/06/2018 FINDINGS: Cardiac monitoring wires and leads overlie the thorax, limiting evaluation. The patient is rotated. A right internal jugular central venous catheter is unchanged with tip overlying the superior vena cava. An enteric tube is present with tip in the region of the stomach in the left upper quadrant. The cardiomediastinal silhouette is stable, within normal limits. The left hemidiaphragm remains elevated. Left lung base atelectasis versus infiltrate present. The right costophrenic angle is sharp. No sizable pneumothorax appreciated. IMPRESSION: 1. Stable elevation of the left hemidiaphragm with possible left lung base atelectasis versus infiltrate. 2. Support lines as above. Report Dictated on Final Dictated: 12/06/2018 8:10 am Dictating Physician: MD SERRANO JENNIFER R Signed Date and Time: 12/06/2018 8:12 am Signed by: MD SERRANO JENNIFER R Transcribed Date and Time: 12/06/2018 8:10 Normal [facility] Echo Complete w/wo Contrasto n 12-06-2018 Echo Complete w/wo Contrast Patient Name: ELIAS SHAH Ultrasound Exam Date/Time 12/06/2018 10:17:48 EST Exam Echo Complete w/wo Contrast Ordering Physician KEE GARNICA HEATHER Accession Number [id number] Reason For Exam syncopal Report TRANSTHORACIC ECHOCARDIOGRAM PATIENT: Elias Shah STUDY DATE: 12/06/2018 : 1940 AGE: 78 HT/WT: 177.8 cm (70 82.6 kg (181.6 in) lb) GENDER: M BP: 136 / 68 LOCATION: [facility] PATIENT Inpatient [facility] STATUS: *ORDERING PHYSICIAN: * Patricia Garnica *READING PHYSICIAN: * José Miguel *COMMUNICATIONS AND SIGNALS SUPERVISOR: * Torie Merrill RDCS, AE, [place], MD [facility] --- INDICATIONS: SYNCOPAL. --- CONCLUSIONS SUMMARY: 1. Procedure narrative: Image quality was suboptimal. The study was technically limited due to poor acoustic window availability and respiratory interference. Intravenous imaging enhancement (Definity) was administered to opacify the chamber. 2. Left ventricle: Systolic function is normal by the biplane method of disks. The estimated ejection fraction is 68%. There are no regional wall motion abnormalities. Features are consistent with a pseudonormal left ventricular filling pattern, with concomitant abnormal relaxation and increased filling pressure (grade 2 diastolic dysfunction). 3. Right ventricle: Systolic function is normal. 4. Left atrium: The atrium is mildly dilated. 5. Right atrium: Central venous pressure (est): 3 mm Hg. 6. Mitral valve: Mildly thickened, mildly calcified leaflets. 7. Aortic valve: Normal-sized, moderately to severely calcified annulus. Trileaflet; moderately calcified leaflets. There is severe stenosis. There is no regurgitation. Mean gradient (S): 44 mm Hg. Dimensionless index: 0.18. Valve area (VTI): 0.6 cm2. --- STUDY DATA: Complete transthoracic echocardiogram. Procedure: Image quality was suboptimal. The study was technically limited due to poor acoustic window availability and respiratory interference. Intravenous imaging enhancement (Definity) was administered to opacify the chamber. Definity lot #: [id number]. M-mode, complete 2D, complete spectral Doppler, and color flow Doppler images were acquired and archived for permanent storage and are available for subsequent review. Study status: Routine. Patient status: Inpatient. --- FINDINGS LEFT VENTRICLE: The cavity size is normal. Wall thickness is normal. Systolic function is normal by the biplane method of disks. The estimated ejection fraction is 68%. There are no regional wall motion abnormalities. There is a borderline abnormality in the ratio of early to atrial left ventricular filling. The tissue Doppler parameters are abnormal. Features are consistent with a pseudonormal left ventricular filling pattern, with concomitant abnormal relaxation and increased filling pressure (grade 2 diastolic dysfunction). E/e' average: 19.7 RIGHT VENTRICLE: The cavity size is normal. Systolic function is normal. Right ventricular systolic pressure is within the normal range. VENTRICULAR SEPTUM: The septum is normal. LEFT ATRIUM: The atrium is mildly dilated. RIGHT ATRIUM: The atrium is normal in size. ATRIAL SEPTUM: The interatrial septum is normal. Doppler shows no evidence of shunt. MITRAL VALVE: Mildly thickened, mildly calcified leaflets. Leaflet separation is normal. Doppler: Transvalvular velocity is within the normal range. There is no evidence for stenosis. There is no regurgitation. Peak gradient (D): 3 mm Hg. AORTIC VALVE: Normal-sized, moderately to severely calcified annulus. Trileaflet; moderately calcified leaflets. Calcification. Cusp separation is normal. Valve mobility is severely restricted. Doppler: There is severe stenosis. There is no regurgitation. Dimensionless index: 0.18. Valve area (VTI): 0.6 cm2. Indexed valve area (VTI): 0.3 cm2/m2. Valve area (Vmax): 0.63 cm2. Indexed valve area (Vmax): 0.31 cm2/m2. Mean gradient (S): 44 mm Hg. Peak gradient (S): 86 mm Hg. Peak velocity (S): 4.6 m/sec. TRICUSPID VALVE: Structurally normal valve. Leaflet separation is normal. Doppler: Transvalvular velocity is within the normal range. There is no evidence for stenosis. There is no significant regurgitation. PULMONIC VALVE: Not visualized. AORTA: The aorta is not visualized. PULMONARY ARTERY: Systolic pressure cannot be accurately estimated. PERICARDIUM: Doppler: There is no chamber collapse. SYSTEMIC VEINS: Inferior vena cava: The IVC collapses by greater than 50% with inspiration. --- Measurements Left ventricle Value Reference LV end-diastolic volume, 1-p A4C 116 ml 67 - 155 LV end-systolic volume, 1-p A4C 44 ml 22 - 58 LV end-diastolic volume, 2-p 134 ml 67 - 155 LV end-systolic volume, 2-p 42 ml 22 - 58 LV ejection fraction, 2-p 68 % >=55 LV E/e', lateral 14.8 --------- LV E/e', medial 29.6 --------- LV E/e', average 19.7 --------- LVOT Value Reference LVOT ID, S 2.1 cm --------- LVOT ID, A-P 2.3 cm --------- LVOT area 3 cm2 --------- LVOT mean velocity, S 0.5 m/sec --------- LVOT VTI, S 17.4 cm --------- Stroke volume (SV), LVOT DP 60 ml --------- Stroke index (SV/bsa), LVOT DP 29 ml/m2 --------- Aortic valve Value Reference Aortic valve peak velocity, S 4.6 m/sec --------- Aortic valve mean velocity, S 3 m/sec --------- Aortic valve VTI, S 97.5 cm --------- Aortic mean gradient, S 44 mm Hg --------- Aortic peak gradient, S 86 mm Hg --------- DI 0.18 --------- Aortic valve area, VTI 0.6 cm2 --------- Aortic valve area/bsa, VTI 0.3 cm2/m2 --------- Aortic valve area, peak velocity 0.63 cm2 --------- Aortic valve area/bsa, peak velocity 0.31 cm2/m2 --------- Left atrium Value Reference LA volume/bsa, ES, 2-p 41 ml/m2 --------- Mitral valve Value Reference Mitral E-wave peak velocity 0.9 m/sec --------- Mitral A-wave peak velocity 1.1 m/sec --------- Mitral deceleration time 288 ms --------- Mitral peak gradient, D 3 mm Hg --------- Mitral E/A ratio, peak 0.8 --------- Right atrium Value Reference RA area, ES, A4C 11 cm2 10 - 18 Systemic veins Value Reference Estimated RAP 3 mm Hg --------- Right ventricle Value Reference RV ID, minor axis, ED, A4C base 3.2 cm 2.4 - 4.2 RV ID, minor axis, ED, A4C mid 2.9 cm 2.0 - 3.5 TAPSE 2.0 cm --------- RV s', lateral, S 0.17 m/sec --------- Legend: (L) and (H) felipe values outside specified reference range. Electronically signed by José Miguel Gutierrez MD 12/06/2018 12:03 Final Dictated: 12/06/2018 12:03 pm Dictating Physician: MD GUTIERREZ STEPHEN A Signed Date and Time: 12/06/2018 12:03 pm Signed by: MD MARIBEL, JOSÉ MIGUEL Constantino Normal [facility] Hemogram w/ Autodiffon 12-06 Abs Baso Cnt 0.0 10*3/uL Normal 0.0-0.2 [facility] Comment on above: Performed By: #### H EMDF, NH33, PT, CMP3, LIPA4, CK3, TROPN, LACT3, MDIFF, PCAL #### [address] [id number] Abs Neutrophile Cnt 7.3 10*3/uL High 1.8-7.0 [facility] Comment on above: Performed By: #### H EMDF, NH33, PT, CMP3, LIPA4, CK3, TROPN, LACT3, MDIFF, PCAL #### [address] [address] Basophils/100 WBC (Bld) 0.3 % Normal 0.0-2.0 S [facility] Comment on above: Performed By: #### H EMDF, NH33, PT, CMP3, LIPA4, CK3, TROPN, LACT3, MDIFF, PCAL #### [address] Eosinophils #/vol (Bld) 0.0 10*3/uL Normal 0.0-0.5 [facility] Comment on above: Performed By: #### H EMDF, NH33, PT, CMP3, LIPA4, CK3, TROPN, LACT3, MDIFF, PCAL #### [address] [address] [place], [place] Eosinophils/100 WBC (Bld) 0.0 % Low 1.0-6.0 [facility] Comment on above: Performed By: #### H EMDF, NH33, PT, CMP3, LIPA4, CK3, TROPN, LACT3, MDIFF, PCAL #### [address] Erythrocyte distribution width Ratio (RBC) 15.4 % High 11.5-14.5 [facility] Comment on above: Performed By: #### H EMDF, NH33, PT, CMP3, LIPA4, CK3, TROPN, LACT3, MDIFF, PCAL #### [address] Granulocytes/100 WBC (Bld) 71.0 % Normal 40.0-80.0 [facility] Comment on above: Performed By: #### H EMDF, NH33, PT, CMP3, LIPA4, CK3, TROPN, LACT3, MDIFF, PCAL #### [address] Hematocrit Volume Fraction (Bld) 35.1 % Low 40.0-52.0 [facility] Comment on above: Performed By: #### H EMDF, NH33, PT, CMP3, LIPA4, CK3, TROPN, LACT3, MDIFF, PCAL #### [address] Hemoglobin mass conc (Bld) 11.6 g/dL Low 13.0-18.0 [facility] Comment on above: Performed By: #### H EMDF, NH33, PT, CMP3, LIPA4, CK3, TROPN, LACT3, MDIFF, PCAL #### [address] Lymphocytes #/vol (Bld) 1.3 10*3/uL Normal 1.0-4.3 [facility] Comment on above: Performed By: #### H EMDF, NH33, PT, CMP3, LIPA4, CK3, TROPN, LACT3, MDIFF, PCAL #### [address] Lymphocytes/100 WBC (Bld) 13.1 % Low 20.0-40.0 [facility] Comment on above: Performed By: #### H EMDF, NH33, PT, CMP3, LIPA4, CK3, TROPN, LACT3, MDIFF, PCAL #### [address] MCH Entitic mass (RBC) 28.5 pg Normal 26.0-34.0 [facility] Comment on above: Performed By: #### H EMDF, NH33, PT, CMP3, LIPA4, CK3, TROPN, LACT3, MDIFF, PCAL #### [address] MCHC mass conc (RBC) 33.1 % Normal 32.0-36.0 [facility] Comment on above: Performed By: #### H EMDF, NH33, PT, CMP3, LIPA4, CK3, TROPN, LACT3, MDIFF, PCAL #### [address] MCV Entitic volume (RBC) 86.2 fL Normal 80.0-98.0 [facility] Comment on above: Performed By: #### H EMDF, NH33, PT, CMP3, LIPA4, CK3, TROPN, LACT3, MDIFF, PCAL #### [address] Monocytes #/vol (Bld) 1.6 10*3/uL High 0.0-0.8 [facility] Comment on above: Performed By: #### H EMDF, NH33, PT, CMP3, LIPA4, CK3, TROPN, LACT3, MDIFF, PCAL #### [address] Monocytes/100 WBC (Bld) 15.6 % High 2.0-10.0 [facility] Comment on above: Performed By: #### H EMDF, NH33, PT, CMP3, LIPA4, CK3, TROPN, LACT3, MDIFF, PCAL #### [address] Platelet mean volume Entitic volume (Bld) 8.6 fL Normal 7.4-10.4 [facility] Comment on above: Performed By: #### H EMDF, NH33, PT, CMP3, LIPA4, CK3, TROPN, LACT3, MDIFF, PCAL #### [address] Platelets #/vol (Bld) 224 10*3/uL Normal 140-440 [facility] Comment on above: Performed By: #### H EMDF, NH33, PT, CMP3, LIPA4, CK3, TROPN, LACT3, MDIFF, PCAL #### [address] RBC #/vol (Bld) 4.07 10*6/uL Low 4.40-5.90 [facility] Comment on above: Performed By: #### H EMDF, NH33, PT, CMP3, LIPA4, CK3, TROPN, LACT3, MDIFF, PCAL #### [address] WBC #/vol (Bld) 10.3 10*3/uL Normal 3.6-10.7 [facility] Comment on above: Performed By: #### H EMDF, NH33, PT, CMP3, LIPA4, CK3, TROPN, LACT3, MDIFF, PCAL #### [address] Magnesiumon 12-06-2018 Magnesium mass conc 3.0 mg/dL High 1.6-2.3 [facility] Comment on above: Performed By: #### H EMDF, NH33, PT, CMP3, LIPA4, CK3, TROPN, LACT3, MDIFF, PCAL #### [address] Magnesium mass conc 3.1 mg/dL High 1.6-2.3 [facility] Comment on above: Performed By: #### H EMDF, NH33, PT, CMP3, LIPA4, CK3, TROPN, LACT3, MDIFF, PCAL #### [address] Magnesium mass conc 3.3 mg/dL High 1.6-2.3 [facility] Comment on above: Performed By: #### H EMDF, NH33, PT, CMP3, LIPA4, CK3, TROPN, LACT3, MDIFF, PCAL #### [facility] [address], [place] Magnesium mass conc 3.4 mg/dL High 1.6-2.3 [facility] Comment on above: Performed By: #### H EMDF, NH33, PT, CMP3, LIPA4, CK3, TROPN, LACT3, MDIFF, PCAL #### [facility] [address] [place], [place] Phosphoruson 12-06-2018 Phosphate mass conc 4.0 mg/dL Normal 2.5-4.5 [facility] Comment on above: Performed By: #### H EMDF, NH33, PT, CMP3, LIPA4, CK3, TROPN, LACT3, MDIFF, PCAL #### [facility] [address], [place] Troponin Ion 12-06-2018 Troponin I.cardiac mass conc 0.240 ng/mL High 0.000-0.034 [facility] Comment on above: Result Comment: 0.04 6 - 0.400 = Indeterminate > 0.400 = Consider Myocardial Injury Performed By: #### H EMDF, NH33, PT, CMP3, LIPA4, CK3, TROPN, LACT3, MDIFF, PCAL #### [address] [address] [address] [place], [place] Add on test from [facility] 12-05 Add on test from [facility] Accepted Normal [facility] Comment on above: Result Comment: Spec imen available & acceptable for analysis. Performed By: #### H EMDF, NH33, PT, CMP3, LIPA4, CK3, TROPN, LACT3, MDIFF, PCAL #### [facility] [address], [place] Basic Metabolic Panelon 11-23 Anion gap molar conc 11 Normal [facility] Comment on above: Performed By: #### H EMDF, NH33, PT, CMP3, LIPA4, CK3, TROPN, LACT3, MDIFF, PCAL #### [address] [address] [address] [place], [place] CO2 molar conc 35 mmol/L High 22-30 [facility] Comment on above: Performed By: #### H EMDF, NH33, PT, CMP3, LIPA4, CK3, TROPN, LACT3, MDIFF, PCAL #### [address] Calcium mass conc 8.8 mg/dL Normal 8.4-10.4 [facility] Comment on above: Performed By: #### H EMDF, NH33, PT, CMP3, LIPA4, CK3, TROPN, LACT3, MDIFF, PCAL #### [address] Glucose mass conc 124 mg/dL High 70-100 [facility] Comment on above: Performed By: #### H EMDF, NH33, PT, CMP3, LIPA4, CK3, TROPN, LACT3, MDIFF, PCAL #### [address] Urea nitrogen mass conc 89 mg/dL High 7-20 S [facility] Comment on above: Performed By: #### H EMDF, NH33, PT, CMP3, LIPA4, CK3, TROPN, LACT3, MDIFF, PCAL #### [address] Creatinine mass conc 5.11 mg/dL High 0.52-1.25 [facility] Comment on above: Performed By: #### H EMDF, NH33, PT, CMP3, LIPA4, CK3, TROPN, LACT3, MDIFF, PCAL #### [address] GFR/1.73 sq M predicted among blacks MDRD vol rate/area (S/P/Bld) 13.2 mL/min/{1.73_m2} Normal >60 [facility] Comment on above: Performed By: #### H EMDF, NH33, PT, CMP3, LIPA4, CK3, TROPN, LACT3, MDIFF, PCAL #### [address] GFR/1.73 sq M predicted among non-blacks MDRD vol rate/area (S/P/Bld) 10.9 mL/min/{1.73_m2} Normal >60 [facility] Comment on above: Result Comment: Sour ce- MDRD equation with creatinine calibration to IDMS(NKDEP) eGFR not recommended for drug dose adjustment Performed By: #### H EMDF, NH33, PT, CMP3, LIPA4, CK3, TROPN, LACT3, MDIFF, PCAL #### [address] [place] [address] Chloride molar conc 93 mmol/L Low 98-107 [facility] Comment on above: Performed By: #### H EMDF, NH33, PT, CMP3, LIPA4, CK3, TROPN, LACT3, MDIFF, PCAL #### [address] Potassium molar conc 3.7 mmol/L Normal 3.5-5.1 [facility] Comment on above: Performed By: #### H EMDF, NH33, PT, CMP3, LIPA4, CK3, TROPN, LACT3, MDIFF, PCAL #### [address] [address] [place], [place] Sodium molar conc 137 mmol/L Normal 135-145 [facility] Comment on above: Performed By: #### H EMDF, NH33, PT, CMP3, LIPA4, CK3, TROPN, LACT3, MDIFF, PCAL #### [address] [address] [place], [place] Calcium mass conc 5.4 mg/dL Critically low 8.4-10.4 [facility] Comment on above: Result Comment: Repe ated Performed By: #### H EMDF, NH33, PT, CMP3, LIPA4, CK3, TROPN, LACT3, MDIFF, PCAL #### [address] Potassium molar conc 2.3 mmol/L Critically low 3.5-5.1 [facility] Comment on above: Result Comment: Repe ated Performed By: #### H EMDF, NH33, PT, CMP3, LIPA4, CK3, TROPN, LACT3, MDIFF, PCAL #### [address] [address] [place], [place] Anion gap molar conc 7 Normal [facility] Comment on above: Performed By: #### H EMDF, NH33, PT, CMP3, LIPA4, CK3, TROPN, LACT3, MDIFF, PCAL #### [facility] [address], [place] CO2 molar conc 24 mmol/L Normal 22-30 [facility] Comment on above: Performed By: #### H EMDF, NH33, PT, CMP3, LIPA4, CK3, TROPN, LACT3, MDIFF, PCAL #### [address] [address] [place], [place] Glucose mass conc 116 mg/dL High 70-100 [facility] Comment on above: Performed By: #### H EMDF, NH33, PT, CMP3, LIPA4, CK3, TROPN, LACT3, MDIFF, PCAL #### [address] [address] [place], [place] Urea nitrogen mass conc 63 mg/dL High 7-20 S [facility] Comment on above: Performed By: #### H EMDF, NH33, PT, CMP3, LIPA4, CK3, TROPN, LACT3, MDIFF, PCAL #### [address] [address] [place], [place] Creatinine mass conc 3.44 mg/dL High 0.52-1.25 [facility] Comment on above: Performed By: #### H EMDF, NH33, PT, CMP3, LIPA4, CK3, TROPN, LACT3, MDIFF, PCAL #### [address] [address] [place], [place] GFR/1.73 sq M predicted among blacks MDRD vol rate/area (S/P/Bld) 20.9 mL/min/{1.73_m2} Normal >60 [facility] Comment on above: Performed By: #### H EMDF, NH33, PT, CMP3, LIPA4, CK3, TROPN, LACT3, MDIFF, PCAL #### [address] [address] [place], [place] GFR/1.73 sq M predicted among non-blacks MDRD vol rate/area (S/P/Bld) 17.2 mL/min/{1.73_m2} Normal >60 [facility] Comment on above: Result Comment: Sour ce- MDRD equation with creatinine calibration to IDMS(NKDEP) eGFR not recommended for drug dose adjustment Performed By: #### H EMDF, NH33, PT, CMP3, LIPA4, CK3, TROPN, LACT3, MDIFF, PCAL #### [address] [address] [place], [place] Chloride molar conc 109 mmol/L High 98-107 [facility] Comment on above: Performed By: #### H EMDF, NH33, PT, CMP3, LIPA4, CK3, TROPN, LACT3, MDIFF, PCAL #### [address] [address] [place], [place] Sodium molar conc 140 mmol/L Normal 135-145 [facility] Comment on above: Performed By: #### H EMDF, NH33, PT, CMP3, LIPA4, CK3, TROPN, LACT3, MDIFF, PCAL #### [address] [address] [place], [place] Anion gap molar conc 12 Normal [facility] Comment on above: Performed By: #### H EMDF, NH33, PT, CMP3, LIPA4, CK3, TROPN, LACT3, MDIFF, PCAL #### [address] [address] [place], [place] Calcium mass conc 7.8 mg/dL Low 8.4-10.4 [facility] Comment on above: Performed By: #### H EMDF, NH33, PT, CMP3, LIPA4, CK3, TROPN, LACT3, MDIFF, PCAL #### [address] [address] [place], [place] CO2 molar conc 32 mmol/L High 22-30 [facility] Comment on above: Performed By: #### H EMDF, NH33, PT, CMP3, LIPA4, CK3, TROPN, LACT3, MDIFF, PCAL #### [address] [address] Glucose mass conc 133 mg/dL High 70-100 [facility] Comment on above: Performed By: #### H EMDF, NH33, PT, CMP3, LIPA4, CK3, TROPN, LACT3, MDIFF, PCAL #### [address] [address] [place] [address] Urea nitrogen mass conc 84 mg/dL High 7-20 S [facility] Comment on above: Performed By: #### H EMDF, NH33, PT, CMP3, LIPA4, CK3, TROPN, LACT3, MDIFF, PCAL #### [address] [address] Creatinine mass conc 5.23 mg/dL High 0.52-1.25 [facility] Comment on above: Performed By: #### H EMDF, NH33, PT, CMP3, LIPA4, CK3, TROPN, LACT3, MDIFF, PCAL #### [address] [address] [place] [address] GFR/1.73 sq M predicted among blacks MDRD vol rate/area (S/P/Bld) 12.9 mL/min/{1.73_m2} Normal >60 [facility] Comment on above: Performed By: #### H EMDF, NH33, PT, CMP3, LIPA4, CK3, TROPN, LACT3, MDIFF, PCAL #### [address] [address] GFR/1.73 sq M predicted among non-blacks MDRD vol rate/area (S/P/Bld) 10.6 mL/min/{1.73_m2} Normal >60 [facility] Comment on above: Result Comment: Sour ce- MDRD equation with creatinine calibration to IDMS(NKDEP) eGFR not recommended for drug dose adjustment Performed By: #### H EMDF, NH33, PT, CMP3, LIPA4, CK3, TROPN, LACT3, MDIFF, PCAL #### [address] [address] [place], [place] Chloride molar conc 95 mmol/L Low 98-107 [facility] Comment on above: Performed By: #### H EMDF, NH33, PT, CMP3, LIPA4, CK3, TROPN, LACT3, MDIFF, PCAL #### [address] [address] [place], [place] Potassium molar conc 3.4 mmol/L Low 3.5-5.1 [facility] Comment on above: Performed By: #### H EMDF, NH33, PT, CMP3, LIPA4, CK3, TROPN, LACT3, MDIFF, PCAL #### [address] [address] [place], [place] Sodium molar conc 139 mmol/L Normal 135-145 [facility] Comment on above: Performed By: #### H EMDF, NH33, PT, CMP3, LIPA4, CK3, TROPN, LACT3, MDIFF, PCAL #### [address] [address] [place], [place] Calcium mass conc 8.1 mg/dL Low 8.4-10.4 [facility] Comment on above: Performed By: #### H EMDF, NH33, PT, CMP3, LIPA4, CK3, TROPN, LACT3, MDIFF, PCAL #### [address] [address] [place], [place] Anion gap molar conc 18 Normal [facility] Comment on above: Performed By: #### H EMDF, NH33, PT, CMP3, LIPA4, CK3, TROPN, LACT3, MDIFF, PCAL #### [address] [address] [place], [place] CO2 molar conc 30 mmol/L Normal 22-30 [facility] Comment on above: Performed By: #### H EMDF, NH33, PT, CMP3, LIPA4, CK3, TROPN, LACT3, MDIFF, PCAL #### [address] [place] [address] Creatinine mass conc 5.38 mg/dL High 0.52-1.25 [facility] Comment on above: Performed By: #### H EMDF, NH33, PT, CMP3, LIPA4, CK3, TROPN, LACT3, MDIFF, PCAL #### [address] [address] [place] [address] GFR/1.73 sq M predicted among blacks MDRD vol rate/area (S/P/Bld) 12.5 mL/min/{1.73_m2} Normal >60 [facility] Comment on above: Performed By: #### H EMDF, NH33, PT, CMP3, LIPA4, CK3, TROPN, LACT3, MDIFF, PCAL #### [address] [address] [place] [address] GFR/1.73 sq M predicted among non-blacks MDRD vol rate/area (S/P/Bld) 10.3 mL/min/{1.73_m2} Normal >60 [facility] Comment on above: Result Comment: Sour ce- MDRD equation with creatinine calibration to IDMS(NKDEP) eGFR not recommended for drug dose adjustment Performed By: #### H EMDF, NH33, PT, CMP3, LIPA4, CK3, TROPN, LACT3, MDIFF, PCAL #### [address] [address] [place] [address] Glucose mass conc 148 mg/dL High 70-100 [facility] Comment on above: Performed By: #### H EMDF, NH33, PT, CMP3, LIPA4, CK3, TROPN, LACT3, MDIFF, PCAL #### [address] [address] Urea nitrogen mass conc 78 mg/dL High 7-20 S [facility] Comment on above: Performed By: #### H EMDF, NH33, PT, CMP3, LIPA4, CK3, TROPN, LACT3, MDIFF, PCAL #### [address] [address] Potassium molar conc 3.5 mmol/L Normal 3.5-5.1 [facility] Comment on above: Performed By: #### H EMDF, NH33, PT, CMP3, LIPA4, CK3, TROPN, LACT3, MDIFF, PCAL #### [facility] [address] [place] [address] Sodium molar conc 139 mmol/L Normal 135-145 [facility] Comment on above: Performed By: #### H EMDF, NH33, PT, CMP3, LIPA4, CK3, TROPN, LACT3, MDIFF, PCAL #### [facility] [address] [place] [address] Chloride molar conc 91 mmol/L Low 98-107 [facility] Comment on above: Performed By: #### H EMDF, NH33, PT, CMP3, LIPA4, CK3, TROPN, LACT3, MDIFF, PCAL #### [facility] [address] [place] [address] CR Chest Portableon 12-05-19 19 CR Chest Portable Patient Name: ELIAS SHAH Diagnostic Radiology Exam Date/Time 12/05/2018 12:50:41 EST Exam CR Chest Portable Ordering Physician MD MANINDER, SIMON Wall Accession Number [id number] CPT4 Codes 25551 () Reason For Exam cvc placement Report CLINICAL INFORMATION: Shortness of breath. Portable view of the chest at 1230 hours is provided and compared with a previous study dated 12/04/2018. FINDINGS: A right IJ line is now in place. An NG tube extends into the stomach. The cardiac silhouette and mediastinum are otherwise within normal limits. There are no significant infiltrates. There is no pneumothorax. Again seen is elevation of left hemidiaphragm. IMPRESSION: 1. New right IJ line as described. The distal tip is in the SVC. 2. No pneumothorax. 3. Stable elevation of left hemidiaphragm. Report Dictated on Final Dictated: 12/05/2018 2:02 pm Dictating Physician: MD BURT JEFFREY Signed Date and Time: 12/05/2018 2:03 pm Signed by: MD BURT JEFFREY Transcribed Date and Time: 12/05/2018 2:02 Normal [facility] Calcium,Ionizedon 12-05-2018 Ionized Ca,Measured 4.00 mg/dL Low 4.30-5.20 [facility] Comment on above: Performed By: #### H EMDF, NH33, PT, CMP3, LIPA4, CK3, TROPN, LACT3, MDIFF, PCAL #### [address] pH, Ionized Calcium 7.39 Normal 7.31-7.46 [facility] Comment on above: Performed By: #### H EMDF, NH33, PT, CMP3, LIPA4, CK3, TROPN, LACT3, MDIFF, PCAL #### [address] Hemogram w/ Autodiffon 12-05 Abs Baso Cnt 0.1 10*3/uL Normal 0.0-0.2 [facility] Comment on above: Performed By: #### H EMDF, NH33, PT, CMP3, LIPA4, CK3, TROPN, LACT3, MDIFF, PCAL #### [address] Abs Neutrophile Cnt 10.4 10*3/uL High 1.8-7.0 [facility] Comment on above: Performed By: #### H EMDF, NH33, PT, CMP3, LIPA4, CK3, TROPN, LACT3, MDIFF, PCAL #### [address] Basophils/100 WBC (Bld) 0.5 % Normal 0.0-2.0 S [facility] Comment on above: Performed By: #### H EMDF, NH33, PT, CMP3, LIPA4, CK3, TROPN, LACT3, MDIFF, PCAL #### [address] Eosinophils #/vol (Bld) 0.0 10*3/uL Normal 0.0-0.5 [facility] Comment on above: Performed By: #### H EMDF, NH33, PT, CMP3, LIPA4, CK3, TROPN, LACT3, MDIFF, PCAL #### [address] Eosinophils/100 WBC (Bld) 0.0 % Low 1.0-6.0 [facility] Comment on above: Performed By: #### H EMDF, NH33, PT, CMP3, LIPA4, CK3, TROPN, LACT3, MDIFF, PCAL #### [address] Erythrocyte distribution width Ratio (RBC) 15.7 % High 11.5-14.5 [facility] Comment on above: Performed By: #### H EMDF, NH33, PT, CMP3, LIPA4, CK3, TROPN, LACT3, MDIFF, PCAL #### [address] Granulocytes/100 WBC (Bld) 77.9 % Normal 40.0-80.0 [facility] Comment on above: Performed By: #### H EMDF, NH33, PT, CMP3, LIPA4, CK3, TROPN, LACT3, MDIFF, PCAL #### [address] Hematocrit Volume Fraction (Bld) 36.7 % Low 40.0-52.0 [facility] Comment on above: Performed By: #### H EMDF, NH33, PT, CMP3, LIPA4, CK3, TROPN, LACT3, MDIFF, PCAL #### [address] Hemoglobin mass conc (Bld) 11.9 g/dL Low 13.0-18.0 [facility] Comment on above: Performed By: #### H EMDF, NH33, PT, CMP3, LIPA4, CK3, TROPN, LACT3, MDIFF, PCAL #### [address] Lymphocytes #/vol (Bld) 0.9 10*3/uL Low 1.0-4.3 [facility] Comment on above: Performed By: #### H EMDF, NH33, PT, CMP3, LIPA4, CK3, TROPN, LACT3, MDIFF, PCAL #### [address] [address] [place], [place] Lymphocytes/100 WBC (Bld) 6.6 % Low 20.0-40.0 [facility] Comment on above: Performed By: #### H EMDF, NH33, PT, CMP3, LIPA4, CK3, TROPN, LACT3, MDIFF, PCAL #### [address] MCH Entitic mass (RBC) 28.0 pg Normal 26.0-34.0 [facility] Comment on above: Performed By: #### H EMDF, NH33, PT, CMP3, LIPA4, CK3, TROPN, LACT3, MDIFF, PCAL #### [address] MCHC mass conc (RBC) 32.3 % Normal 32.0-36.0 [facility] Comment on above: Performed By: #### H EMDF, NH33, PT, CMP3, LIPA4, CK3, TROPN, LACT3, MDIFF, PCAL #### [address] MCV Entitic volume (RBC) 86.7 fL Normal 80.0-98.0 [facility] Comment on above: Performed By: #### H EMDF, NH33, PT, CMP3, LIPA4, CK3, TROPN, LACT3, MDIFF, PCAL #### [address] Monocytes #/vol (Bld) 2.0 10*3/uL High 0.0-0.8 [facility] Comment on above: Performed By: #### H EMDF, NH33, PT, CMP3, LIPA4, CK3, TROPN, LACT3, MDIFF, PCAL #### [address] [address] [place], [place] Monocytes/100 WBC (Bld) 15.0 % High 2.0-10.0 S [facility] Comment on above: Performed By: #### H EMDF, NH33, PT, CMP3, LIPA4, CK3, TROPN, LACT3, MDIFF, PCAL #### [address] Platelet mean volume Entitic volume (Bld) 9.1 fL Normal 7.4-10.4 [facility] Comment on above: Performed By: #### H EMDF, NH33, PT, CMP3, LIPA4, CK3, TROPN, LACT3, MDIFF, PCAL #### [address] Platelets #/vol (Bld) 218 10*3/uL Normal 140-440 [facility] Comment on above: Performed By: #### H EMDF, NH33, PT, CMP3, LIPA4, CK3, TROPN, LACT3, MDIFF, PCAL #### [address] RBC #/vol (Bld) 4.23 10*6/uL Low 4.40-5.90 [facility] Comment on above: Performed By: #### H EMDF, NH33, PT, CMP3, LIPA4, CK3, TROPN, LACT3, MDIFF, PCAL #### [address] WBC #/vol (Bld) 13.3 10*3/uL High 3.6-10.7 [facility] Comment on above: Performed By: #### H EMDF, NH33, PT, CMP3, LIPA4, CK3, TROPN, LACT3, MDIFF, PCAL #### [address] Lactic Acidon 12-05-2018 Lactate molar conc 1.0 mmol/L Normal 0.7-2.0 [facility] Comment on above: Performed By: #### H EMDF, NH33, PT, CMP3, LIPA4, CK3, TROPN, LACT3, MDIFF, PCAL #### [address] [address] Lactate molar conc 1.1 mmol/L Normal 0.7-2.0 [facility] Comment on above: Performed By: #### H EMDF, NH33, PT, CMP3, LIPA4, CK3, TROPN, LACT3, MDIFF, PCAL #### [address] Lactate molar conc 1.5 mmol/L Normal 0.7-2.0 [facility] Comment on above: Performed By: #### H EMDF, NH33, PT, CMP3, LIPA4, CK3, TROPN, LACT3, MDIFF, PCAL #### [address] Lactate molar conc 1.6 mmol/L Normal 0.7-2.0 [facility] Comment on above: Performed By: #### H EMDF, NH33, PT, CMP3, LIPA4, CK3, TROPN, LACT3, MDIFF, PCAL #### [address] Magnesiumon 12-05-2018 Magnesium mass conc 1.6 mg/dL Normal 1.6-2.3 [facility] Comment on above: Performed By: #### H EMDF, NH33, PT, CMP3, LIPA4, CK3, TROPN, LACT3, MDIFF, PCAL #### [address] Magnesium mass conc 2.3 mg/dL Normal 1.6-2.3 [facility] Comment on above: Performed By: #### H EMDF, NH33, PT, CMP3, LIPA4, CK3, TROPN, LACT3, MDIFF, PCAL #### [address] [address] Magnesium mass conc 2.5 mg/dL High 1.6-2.3 [facility] Comment on above: Performed By: #### H EMDF, NH33, PT, CMP3, LIPA4, CK3, TROPN, LACT3, MDIFF, PCAL #### [address] [address] Microalbumin/Creat Ratioon 0 12-05-2018 Microalb/Creat Ratio 206.2 mg/g High 0.0-29.9 [facility] Comment on above: Performed By: #### H EMDF, NH33, PT, CMP3, LIPA4, CK3, TROPN, LACT3, MDIFF, PCAL #### [address] Microalbumin, Ur 375.0 mg/L High 0.0-17.0 [facility] Comment on above: Result Comment: Micr oalbumin concentrations <30 are considered normal, 30-300 are considered microalbuminuria (or risk of diabetic nephropathy), and >300 are considered clinical albuminuria (clinical nephropathy). Diabetes Care,27, Supplement 1, H77-23, 2003 Performed By: #### H EMDF, NH33, PT, CMP3, LIPA4, CK3, TROPN, LACT3, MDIFF, PCAL #### [address] [address] Creatinine, Ur Random 181.9 mg/dL Normal No Range [facility] Comment on above: Performed By: #### H EMDF, NH33, PT, CMP3, LIPA4, CK3, TROPN, LACT3, MDIFF, PCAL #### [address] [address] Op Noteon 12-05-2018 Op Note PATIENT: ELIAS SHAH ADMISSION DATE: 12/04/2018 SURGERY DATE: 12/04/2018 DATE OF : 1940 AGE: 78 ADMITTING PHYSICIAN: Stella Bosch II, MD ATTENDING PHYSICIAN: Felipe Gonzáles DO DICTATING PHYSICIAN: Felipe Gonzáles DO OPERATIVE RECORD Procedure: DIAGNOSTIC LAPAROSCOPY. THERE WERE 2 LAPAROTOMY WITH OPEN SMALL BOWEL RESECTION. Preoperative Diagnosis: Incarcerated ventral hernia with strangulated bowel. Postoperative Diagnosis: Incarcerated ventral hernia with strangulated bowel. Anesthesia: General. [employer]ing Machine Operator: Dr. Van Tolliver. Complications: None. Blood Loss: Minimal. Details: The patient is an 78-year-old gentleman who presents to [facility] ER with abdominal pain, emesis, acute kidney injury. The patient had a CT scan of the abdomen and pelvis which revealed a stomach, dilated proximal small bowel and a transition point had an incarcerated ventral hernia. The patient had an NG tube placed. He was resuscitated and then was urgently taken to surgery. Description of procedure: He was brought to the operative suite and placed in supine position. A line was placed. Left arm was tucked at his sides being careful to protect bony prominences. We began the operation by making a 5 mm left upper quadrant incision. Pneumoperitoneum was achieved using Veress needle. Optical trocar was then placed without difficulty. We then placed 2 left-sided 5 mm trocars. We very carefully reduced the small bowel from the abdominal wall defect, however, this was noted to be dusky and was not pinking up and was concern for strangulation. At this point, we made an incision over the previous hernia site. This incision was taken down to the anterior abdominal fascia. The fascial opening was then extended and the small intestine was brought up into the field. We made a rent in the mesentery proximally and distally, aligned the bowel. Made 2 enterotomies, we then performed a [id number] functional, end-to-end stapled anastomosis using 75 mm Endo-LUIS FERNANDO blue load stapler. We then closed the mesenteric defect using 3-0 Vicryl suture and also imbricated the entire staple line using 3-0 Vicryl suture. Crotch stitch was also placed. The anastomosis was noted to be viable and was also noted to be patent. This was then placed back in the abdominal cavity. The anterior abdominal fascia was then closed using running interrupted #1 PDS sutures. The staple was then used to loosely close the skin. The abdominal cavity was then evaluated. There was no other abnormalities. The abdominal cavity was then desufflated. Incisions closed. The patient was extubated and taken to the Intensive Care Unit in stable condition. Diskriter Job ID: [id number] Felipe Gonzáles DO DOD:12/04/2018 10:08 P MAP/dsk DOT:12/05/2018 01:14 A Job Number: [id number] Document Number: [id number] cc: Stella Bosch II, MD [address] [facility] [address] [facility] [address] Felipe Gonzáles DO [facility] [address] [facility] [address] [place] [address] Normal [facility] Osmolality,Urineon 9 Osmolality,Urine 466 mosm/kg Normal 300-1000 [facility] Comment on above: Performed By: #### H EMDF, NH33, PT, CMP3, LIPA4, CK3, TROPN, LACT3, MDIFF, PCAL #### [address] [address] [place] [address] PTH, Intacton 12-05-2018 PTH, Intact 224.6 pg/mL High 15.0-63.0 [facility] Comment on above: Performed By: #### H EMDF, NH33, PT, CMP3, LIPA4, CK3, TROPN, LACT3, MDIFF, PCAL #### [address] [place] [address] Phosphoruson 12-05-2018 Phosphate mass conc 5.4 mg/dL High 2.5-4.5 [facility] Comment on above: Performed By: #### H EMDF, NH33, PT, CMP3, LIPA4, CK3, TROPN, LACT3, MDIFF, PCAL #### [address] [address] [place] [address] Phosphate mass conc 5.7 mg/dL High 2.5-4.5 [facility] Comment on above: Performed By: #### H EMDF, NH33, PT, CMP3, LIPA4, CK3, TROPN, LACT3, MDIFF, PCAL #### [address] [address] Protein, Ur Randomon 019 Protein mass conc 34 mg/dL High No Range [facility] Comment on above: Performed By: #### H EMDF, NH33, PT, CMP3, LIPA4, CK3, TROPN, LACT3, MDIFF, PCAL #### [facility] [address] [place], [place] Renal Functionon 12-05-2018 Calcium mass conc 8.0 mg/dL Low 8.4-10.4 [facility] Comment on above: Performed By: #### H EMDF, NH33, PT, CMP3, LIPA4, CK3, TROPN, LACT3, MDIFF, PCAL #### [address] [place], [place] Glucose mass conc 117 mg/dL High 70-100 [facility] Comment on above: Performed By: #### H EMDF, NH33, PT, CMP3, LIPA4, CK3, TROPN, LACT3, MDIFF, PCAL #### [address] [address] [place], [place] Phosphate mass conc 6.1 mg/dL High 2.5-4.5 [facility] Comment on above: Performed By: #### H EMDF, NH33, PT, CMP3, LIPA4, CK3, TROPN, LACT3, MDIFF, PCAL #### [address] [place], [place] Urea nitrogen mass conc 93 mg/dL High 7-20 S [facility] Comment on above: Performed By: #### H EMDF, NH33, PT, CMP3, LIPA4, CK3, TROPN, LACT3, MDIFF, PCAL #### [address] [address] [place], [place] Anion gap molar conc 10 Normal [facility] Comment on above: Performed By: #### H EMDF, NH33, PT, CMP3, LIPA4, CK3, TROPN, LACT3, MDIFF, PCAL #### [address] [address] [place], [place] CO2 molar conc 34 mmol/L High 22-30 [facility] Comment on above: Performed By: #### H EMDF, NH33, PT, CMP3, LIPA4, CK3, TROPN, LACT3, MDIFF, PCAL #### [address] [address] [place], [place] Creatinine mass conc 5.05 mg/dL High 0.52-1.25 [facility] Comment on above: Performed By: #### H EMDF, NH33, PT, CMP3, LIPA4, CK3, TROPN, LACT3, MDIFF, PCAL #### [address] [address] [place] [address] GFR/1.73 sq M predicted among blacks MDRD vol rate/area (S/P/Bld) 13.4 mL/min/{1.73_m2} Normal >60 [facility] Comment on above: Performed By: #### H EMDF, NH33, PT, CMP3, LIPA4, CK3, TROPN, LACT3, MDIFF, PCAL #### [address] [address] [place], [place] GFR/1.73 sq M predicted among non-blacks MDRD vol rate/area (S/P/Bld) 11.1 mL/min/{1.73_m2} Normal >60 [facility] Comment on above: Result Comment: Sour ce- MDRD equation with creatinine calibration to IDMS(NKDEP) eGFR not recommended for drug dose adjustment Performed By: #### H EMDF, NH33, PT, CMP3, LIPA4, CK3, TROPN, LACT3, MDIFF, PCAL #### [address] Potassium molar conc 3.9 mmol/L Normal 3.5-5.1 [facility] Comment on above: Performed By: #### H EMDF, NH33, PT, CMP3, LIPA4, CK3, TROPN, LACT3, MDIFF, PCAL #### [address] Albumin mass conc 3.0 g/dL Low 3.5-5.0 [facility] Comment on above: Performed By: #### H EMDF, NH33, PT, CMP3, LIPA4, CK3, TROPN, LACT3, MDIFF, PCAL #### [address] Chloride molar conc 93 mmol/L Low 98-107 [facility] Comment on above: Performed By: #### H EMDF, NH33, PT, CMP3, LIPA4, CK3, TROPN, LACT3, MDIFF, PCAL #### [address] [address] [place] [address] Sodium molar conc 137 mmol/L Normal 135-145 [facility] Comment on above: Performed By: #### H EMDF, NH33, PT, CMP3, LIPA4, CK3, TROPN, LACT3, MDIFF, PCAL #### [address] [place] [address] Sodium, Ur Randomon 12-05-19 19 Sodium molar conc 34 mmol/L Normal No Range [facility] Comment on above: Performed By: #### H EMDF, NH33, PT, CMP3, LIPA4, CK3, TROPN, LACT3, MDIFF, PCAL #### [address] [place] [address] Thyroid Stim. Hormoneon 11-23 Thyroid Stim. Hormone 2.220 u[IU]/mL Normal 0.465-4.68 0 [facility] Comment on above: Performed By: #### H EMDF, NH33, PT, CMP3, LIPA4, CK3, TROPN, LACT3, MDIFF, PCAL #### [address] [address] [place] [address] Troponin Ion 12-05-2018 Troponin I.cardiac mass conc 0.467 ng/mL High 0.000-0.034 [facility] Comment on above: Result Comment: 0.04 6 - 0.400 = Indeterminate > 0.400 = Consider Myocardial Injury Performed By: #### H EMDF, NH33, PT, CMP3, LIPA4, CK3, TROPN, LACT3, MDIFF, PCAL #### [address] [place] [address] Troponin I.cardiac mass conc 0.716 ng/mL High 0.000-0.034 [facility] Comment on above: Result Comment: 0.04 6 - 0.400 = Indeterminate > 0.400 = Consider Myocardial Injury Performed By: #### H EMDF, NH33, PT, CMP3, LIPA4, CK3, TROPN, LACT3, MDIFF, PCAL #### [facility] [address], [place] Troponin I.cardiac mass conc 0.952 ng/mL High 0.000-0.034 [facility] Comment on above: Result Comment: 0.04 6 - 0.400 = Indeterminate > 0.400 = Consider Myocardial Injury Performed By: #### H EMDF, NH33, PT, CMP3, LIPA4, CK3, TROPN, LACT3, MDIFF, PCAL #### [facility] [address], [place] Urea Nitrogen,Ur Randomon Urea nitrogen mass conc 490 mg/dL Normal No Range S [facility] Comment on above: Performed By: #### H EMDF, NH33, PT, CMP3, LIPA4, CK3, TROPN, LACT3, MDIFF, PCAL #### [facility] [address] [place], [place] Vit D 25-OH, Totalon 019 Vit D 25-OH, Total 18 ng/mL Low 30-100 [facility] Comment on above: Result Comment: Ther apy is based on measurement of Total 25-OHD with the following classification levels: Less than 20 ng/mL: Indicative of Vit D deficiency 20-30 ng/mL: Suggests Vit D insufficiency Optimal: Greater than or equal to 30 ng/mL Test performed by [employer] Competitive Immunoassay, measuring Total Vitamin D, not individual fractions. Performed By: #### H EMDF, NH33, PT, CMP3, LIPA4, CK3, TROPN, LACT3, MDIFF, PCAL #### [facility] [address] [place], [place] Vitamin B12on 12-05-2018 Cobalamin (Vitamin B12) mass conc 260 pg/mL Normal 239-931 [facility] Comment on above: Performed By: #### H EMDF, NH33, PT, CMP3, LIPA4, CK3, TROPN, LACT3, MDIFF, PCAL #### [address] [place], [place] Ammoniaon 12-04-2018 Ammonia mass conc (P) 24 umol/L Normal 9-30 [facility] Comment on above: Performed By: #### H EMDF, NH33, PT, CMP3, LIPA4, CK3, TROPN, LACT3, MDIFF, PCAL #### [address] Arterial Blood Gaseson 12-04 CO2 molar conc 30.8 mmol/L High 23.0-27.0 [facility] Comment on above: Performed By: #### H EMDF, NH33, PT, CMP3, LIPA4, CK3, TROPN, LACT3, MDIFF, PCAL #### [address] HCO3 molar conc (Bld) 29.4 mmol/L High 21.0-25.0 [facility] Comment on above: Performed By: #### H EMDF, NH33, PT, CMP3, LIPA4, CK3, TROPN, LACT3, MDIFF, PCAL #### [address] [address] [place], [place] Hemoglobin mass conc (Bld) 13.9 g/dL Normal ScreenOnly [facility] Comment on above: Performed By: #### H EMDF, NH33, PT, CMP3, LIPA4, CK3, TROPN, LACT3, MDIFF, PCAL #### [address] [address] [place], [place] Oxygen ppres (Bld) 102.3 mm[Hg] High 80.0-100.0 [facility] Comment on above: Performed By: #### H EMDF, NH33, PT, CMP3, LIPA4, CK3, TROPN, LACT3, MDIFF, PCAL #### [address] Oxygen saturation in Blood 97.1 % Normal 95.0-100.0 [facility] Comment on above: Performed By: #### H EMDF, NH33, PT, CMP3, LIPA4, CK3, TROPN, LACT3, MDIFF, PCAL #### [address] [address] [address] [place], [place] pCO2 46.8 mm[Hg] High 35.0-45.0 [facility] Comment on above: Performed By: #### H EMDF, NH33, PT, CMP3, LIPA4, CK3, TROPN, LACT3, MDIFF, PCAL #### [address] [address] [place], [place] pH (Bld) 7.416 Normal 7.350-7.450 [facility] Comment on above: Performed By: #### H EMDF, NH33, PT, CMP3, LIPA4, CK3, TROPN, LACT3, MDIFF, PCAL #### [address] Std Base Excess 4.1 mmol/L High -3.0-3.0 [facility] Comment on above: Performed By: #### H EMDF, NH33, PT, CMP3, LIPA4, CK3, TROPN, LACT3, MDIFF, PCAL #### [address] FIO2 No data Normal [facility] Comment on above: Performed By: #### H EMDF, NH33, PT, CMP3, LIPA4, CK3, TROPN, LACT3, MDIFF, PCAL #### [address] [address] [place], [place] CO2 molar conc 31.5 mmol/L High 23.0-27.0 [facility] Comment on above: Performed By: #### H EMDF, NH33, PT, CMP3, LIPA4, CK3, TROPN, LACT3, MDIFF, PCAL #### [address] HCO3 molar conc (Bld) 30.3 mmol/L High 21.0-25.0 [facility] Comment on above: Performed By: #### H EMDF, NH33, PT, CMP3, LIPA4, CK3, TROPN, LACT3, MDIFF, PCAL #### [address] Hemoglobin mass conc (Bld) 13.1 g/dL Normal ScreenOnly [facility] Comment on above: Performed By: #### H EMDF, NH33, PT, CMP3, LIPA4, CK3, TROPN, LACT3, MDIFF, PCAL #### [address] Oxygen ppres (Bld) 430.1 mm[Hg] High 80.0-100.0 [facility] Comment on above: Performed By: #### H EMDF, NH33, PT, CMP3, LIPA4, CK3, TROPN, LACT3, MDIFF, PCAL #### [address] Oxygen saturation in Blood 99.6 % Normal 95.0-100.0 [facility] Comment on above: Performed By: #### H EMDF, NH33, PT, CMP3, LIPA4, CK3, TROPN, LACT3, MDIFF, PCAL #### [address] [address] [place], [place] pCO2 40.2 mm[Hg] Normal 35.0-45.0 [facility] Comment on above: Performed By: #### H EMDF, NH33, PT, CMP3, LIPA4, CK3, TROPN, LACT3, MDIFF, PCAL #### [address] pH (Bld) 7.495 High 7.350-7.450 [facility] Comment on above: Performed By: #### H EMDF, NH33, PT, CMP3, LIPA4, CK3, TROPN, LACT3, MDIFF, PCAL #### [address] Std Base Excess 6.5 mmol/L High -3.0-3.0 [facility] Comment on above: Performed By: #### H EMDF, NH33, PT, CMP3, LIPA4, CK3, TROPN, LACT3, MDIFF, PCAL #### [facility] [address] [place] [address] FIO2 100% Normal [facility] Comment on above: Performed By: #### H EMDF, NH33, PT, CMP3, LIPA4, CK3, TROPN, LACT3, MDIFF, PCAL #### [facility] [address] [place] [address] CKon 12-04-2018 CK enzyme act/vol 247 U/L High 30-170 [facility] Comment on above: Performed By: #### H EMDF, NH33, PT, CMP3, LIPA4, CK3, TROPN, LACT3, MDIFF, PCAL #### [facility] [address] [place] [address] CR Chest Portableon 12-04-19 19 CR Chest Portable Patient Name: ELIAS SHAH Diagnostic Radiology Exam Date/Time 12/04/2018 18:28:53 EST Exam CR Chest Portable Ordering Physician MD KAILYN, [facility] Accession Number [id number] CPT4 Codes 19866 () Reason For Exam s/p NG tube placement Report Reason for examination: NG tube. Single view of the chest is performed. Comparison is dated 12/04/2018. An NG tube has been placed and the tip overlies the left upper quadrant. The trachea is midline. There is aortic atherosclerosis. The mediastinal and cardiac silhouette are stable. The left hemidiaphragm is elevated. The right lateral lower hemithorax is not included on the examination. No confluent infiltrates, pleural effusion or pneumothorax is identified. Report Dictated on Final Dictated: 12/04/2018 6:38 pm Dictating Physician: MD MORELAND LAUREN B Signed Date and Time: 12/04/2018 6:41 pm Signed by: MD MORELAND LAUREN B Transcribed Date and Time: 12/04/2018 6:38 Normal [facility] CR Chest Portable Patient Name: ELIAS SHAH Diagnostic Radiology Exam Date/Time 12/04/2018 17:25:31 EST Exam CR Chest Portable Ordering Physician KAY OMER MD, DONALD L Accession Number [id number] CPT4 Codes 56793 () Reason For Exam pt with altered mental status, elev. WBC and lactate; eval for pneumonia Report Portable semiupright AP view of the chest, 12/04/2018. Reason for examination: Leukocytosis and change in mental status. COMPARISON: No direct comparison available. FINDINGS: Cardiac size is within normal limits. Pulmonary vasculature is normal. The lungs are free of infiltrate. There is moderate eventration of the left hemidiaphragm. There may be mild scarring or atelectasis in the lung bases. No pleural effusion or pneumothorax is identified. IMPRESSION: Eventration of the left hemidiaphragm with possible mild scarring or atelectasis in the lung bases. Report Dictated on Final Dictated: 12/04/2018 5:33 pm Dictating Physician: MD GUERRIER JOE M Signed Date and Time: 12/04/2018 5:34 pm Signed by: MD GUERRIER JOE M Transcribed Date and Time: 12/04/2018 5:33 Normal [facility] CT Abdomen/Pelvis w/o Contra ston 12-04-2018 CT Abdomen/Pelvis w/o Contrast Patient Name: ELIAS SHAH CT Exam Date/Time 12/04/2018 16:38:[address] Abdomen/Pelvis (No PO, No IV) Ordering Physician KAY OMER MD, DONALD L Accession Number [id number] CPT4 Codes 56045 (CT Abdomen/Pelvis (No PO, No IV)) Reason For Exam umbilical hernia Report CT of the abdomen and pelvis without intravenous contrast, 12/04/2018. Reason for examination: Abdominal pain. Umbilical hernia. COMPARISON: None available. TECHNIQUE: 3 mm axial images were obtained through the abdomen and pelvis. No intravenous or oral contrast was administered. Coronal and sagittal reconstructions were created and reviewed. FINDINGS: There is scarring or atelectasis in the lung bases. There is moderate eventration of the left hemidiaphragm. There is coronary atherosclerosis. ABDOMEN: Evaluation is limited by technique. There is moderate gastric distention and moderate proximal to mid small bowel distention which extends to the level of the patient's known umbilical hernia. There is a short segment of small bowel within the hernia with an obstruction at this level. More distal small bowel is decompressed. The colon is also decompressed. There is a nonspecific 1 cm low-attenuation lesion in the left lobe of the liver. No lesion is identified in the spleen, pancreas, or kidneys. There is mild nodular thickening of the adrenal glands bilaterally which may be secondary to hyperplasia. No lymphadenopathy or abnormal fluid collection is noted. Pelvis: No mass or lymphadenopathy is noted. No inflammatory process or abnormal fluid collections identified. There are mild bilateral common iliac artery aneurysms, measuring approximately 2.5 cm in diameter on the right and 2.3 cm in diameter on the left. There are degenerative changes in the lower thoracic and lumbar spine and at sacroiliac joints. IMPRESSION: 1. Small bowel obstruction secondary to an obstructed segment of small bowel within the patient's umbilical hernia. 2. Chronic findings including nodular thickening of the adrenal glands, mild common iliac artery aneurysms, and small, nonspecific lesion in the left lobe of the liver. Report Dictated on Final Dictated: 12/04/2018 4:58 pm Dictating Physician: MD GUERRIER JOE M Signed Date and Time: 12/04/2018 5:02 pm Signed by: MD GUERRIER JOE M Transcribed Date and Time: 12/04/2018 4:58 Normal [facility] CT Head or Brain w/o Contras ton 12-04-2018 CT Head or Brain w/o Contrast Patient Name: ELIAS SHAH CT Exam Date/Time 12/04/2018 16:38:[address] Head or Brain w/o Contrast Ordering Physician KAY OMER MD, DONALD L Accession Number [id number] CPT4 Codes 10037 () Reason For Exam pt with altered mental status eval for pneumonia Report Reason for examination: Altered mental status. A CT scan of the head is performed from the skull base to the vertex without contrast. Sagittal and coronal reconstructed images are reviewed. The ventricles and sulci are prominent compatible with cerebral atrophy. There is no midline shift or mass effect. No intra-axial or extra-axial fluid collections are identified. There is extensive hypodensity in the periventricular and subcortical white matter consistent with chronic small vessel ischemic changes. There is a remote appearing lacunar infarct in the right thalamus. The brainstem and cerebellum are unremarkable. The globes and intraorbital contents appear intact. There is a retention cyst or polyp in the right maxillary sinus otherwise the paranasal sinuses and mastoid air cells are well aerated. There is carotid siphon and left vertebral artery atherosclerosis. The bony calvarium appears intact. 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 No acute intracranial process. Carotid siphon and left vertebral artery atherosclerosis. Report Dictated on Final Dictated: 12/04/2018 4:45 pm Dictating Physician: MD MORELAND LAUREN B Signed Date and Time: 12/04/2018 4:48 pm Signed by: MD MORELAND LAUREN B Transcribed Date and Time: 12/04/2018 4:45 Normal [facility] Comp Metabolic Panelon 12-04 ALP enzyme act/vol 110 U/L Normal 38-126 [facility] Comment on above: Performed By: #### H EMDF, NH33, PT, CMP3, LIPA4, CK3, TROPN, LACT3, MDIFF, PCAL #### [address] [id number] ALT enzyme act/vol 19 U/L Normal 13-69 [facility] Comment on above: Performed By: #### H EMDF, NH33, PT, CMP3, LIPA4, CK3, TROPN, LACT3, MDIFF, PCAL #### [facility] [address] [place] [address] Anion gap molar conc 21 Normal [facility] Comment on above: Performed By: #### H EMDF, NH33, PT, CMP3, LIPA4, CK3, TROPN, LACT3, MDIFF, PCAL #### [facility] [address] [place] [address] AST enzyme act/vol 40 U/L Normal 15-46 [facility] Comment on above: Performed By: #### H EMDF, NH33, PT, CMP3, LIPA4, CK3, TROPN, LACT3, MDIFF, PCAL #### [address] [address] [place], [place] Calcium mass conc 10.2 mg/dL Normal 8.4-10.4 [facility] Comment on above: Performed By: #### H EMDF, NH33, PT, CMP3, LIPA4, CK3, TROPN, LACT3, MDIFF, PCAL #### [address] [address] [place], [place] CO2 molar conc 31 mmol/L High 22-30 [facility] Comment on above: Performed By: #### H EMDF, NH33, PT, CMP3, LIPA4, CK3, TROPN, LACT3, MDIFF, PCAL #### [address] Glucose mass conc 170 mg/dL High 70-100 [facility] Comment on above: Performed By: #### H EMDF, NH33, PT, CMP3, LIPA4, CK3, TROPN, LACT3, MDIFF, PCAL #### [address] [address] [place], [place] Protein mass conc 9.1 g/dL High 6.3-8.2 [facility] Comment on above: Performed By: #### H EMDF, NH33, PT, CMP3, LIPA4, CK3, TROPN, LACT3, MDIFF, PCAL #### [address] [address] [place], [place] Urea nitrogen mass conc 73 mg/dL High 7-20 S [facility] Comment on above: Performed By: #### H EMDF, NH33, PT, CMP3, LIPA4, CK3, TROPN, LACT3, MDIFF, PCAL #### [address] Bilirubin mass conc 1.0 mg/dL Normal 0.2-1.3 [facility] Comment on above: Performed By: #### H EMDF, NH33, PT, CMP3, LIPA4, CK3, TROPN, LACT3, MDIFF, PCAL #### [address] Creatinine mass conc 5.53 mg/dL High 0.52-1.25 [facility] Comment on above: Performed By: #### H EMDF, NH33, PT, CMP3, LIPA4, CK3, TROPN, LACT3, MDIFF, PCAL #### [address] [address] [place], [place] GFR/1.73 sq M predicted among blacks MDRD vol rate/area (S/P/Bld) 12.1 mL/min/{1.73_m2} Normal >60 [facility] Comment on above: Performed By: #### H EMDF, NH33, PT, CMP3, LIPA4, CK3, TROPN, LACT3, MDIFF, PCAL #### [address] GFR/1.73 sq M predicted among non-blacks MDRD vol rate/area (S/P/Bld) 10.0 mL/min/{1.73_m2} Normal >60 [facility] Comment on above: Result Comment: Sour ce- MDRD equation with creatinine calibration to IDMS(NKDEP) eGFR not recommended for drug dose adjustment Performed By: #### H EMDF, NH33, PT, CMP3, LIPA4, CK3, TROPN, LACT3, MDIFF, PCAL #### [address] Albumin mass conc 4.8 g/dL Normal 3.5-5.0 [facility] Comment on above: Performed By: #### H EMDF, NH33, PT, CMP3, LIPA4, CK3, TROPN, LACT3, MDIFF, PCAL #### [address] Chloride molar conc 87 mmol/L Low 98-107 [facility] Comment on above: Performed By: #### H EMDF, NH33, PT, CMP3, LIPA4, CK3, TROPN, LACT3, MDIFF, PCAL #### [address] Potassium molar conc 3.4 mmol/L Low 3.5-5.1 [facility] Comment on above: Performed By: #### H EMDF, NH33, PT, CMP3, LIPA4, CK3, TROPN, LACT3, MDIFF, PCAL #### [facility] [address] [place], [place] Sodium molar conc 140 mmol/L Normal 135-145 [facility] Comment on above: Performed By: #### H EMDF, NH33, PT, CMP3, LIPA4, CK3, TROPN, LACT3, MDIFF, PCAL #### [facility] [address] [place], [place] ED Provider Noteon 9 Protein mass conc Emergency Department Encounter [facility] EMERGENCY DEPT Patient: Elias Shah : 1940 Date of Evaluation: 12/04/2018 ED Provider: Stella Bosch MD Chief Complaint Chief Complaint Patient presents with ? Altered Mental Status per squad neighbors have not seen the patient in the last couple days and they called 911 when they found him squating by his bed. patient per squad is alert and oriented x 2 and is in a-fib with rvr COUSH[place] Elias Shah is a 78 y.o. male who presents to the emergency department With complaint of altered mental status. Patient presents emergency Department with his neighbors. They noticed that the patient has had increasing newspapers around his door and this concerned and they went over to check on the patient and found the patient laying in bed and he appeared more altered. They state that at baseline the patient is able to drive have normal conversation. The patient has no complaints. However given his mental status he is unable to fully participate in the history or review of systems. ROS: Unable to be obtained given the patient's altered mental status. Past History No past medical history on file. No past surgical history on file. Social History Social History ? Marital status: Spouse name: N/A ? Number of children: N/A ? Years of education: N/A Social History Main Topics ? Smoking status: Not on file ? Smokeless tobacco: Not on file ? Alcohol use Not on file ? Drug use: Unknown ? Sexual activity: Not on file Other Topics Concern ? Not on file Social History Narrative ? No narrative on file Medications/Allergies Previous Medications No medications on file No Known Allergies Physical Exam ED Triage Vitals [12/04/18 1254] BP Temp Temp src Pulse Resp SpO2 Height Weight 136/78 98.9 ?F (37.2 ?C) -- 120 18 98 % 5' 10 (1.778 m) 200 lb (90.7 kg) GENERAL APPEARANCE: This patient is in no acute distress. Awake and alert. VITAL SIGNS: As per the triage vitals HEENT: Normocephalic, atraumatic. Extraocular muscles are intact. NECK: Supple LUNGS: No stridor. Breathing comfortably. CARDIOVASCULAR: Regular rhythm without murmurs. ABDOMEN: Nontender, umbilical hernia noted that is not reducible, soft, nondistended, no palpable pulsatile masses. MUSCULOSKELETAL: Active range of motion. There is no clubbing, cyanosis, or edema. NEUROLOGICAL: Awake, alert and oriented x 3. PSYCH: Normal mood and affect. DERMATOLOGIC: No petechiae, rashes, or ecchymoses. Skin has normal temperature. There's no cyanosis, erythema, pallor or edema. Diagnostics Labs: Results for orders placed or performed during the hospital encounter of 12/04/18 Hemogram (CBC) w/Auto Diff Result Value Ref Range WBC 15.2 (H) 3.6 - 10.7 10*3/uL RBC 5.57 4.40 - 5.90 10*6/uL Hemoglobin 15.7 13.0 - 18.0 g/dL Hematocrit 48.2 40.0 - 52.0 % MCV 86.6 80.0 - 98.0 fL MCH 28.2 26.0 - 34.0 pg MCHC 32.6 32.0 - 36.0 % RDW 15.2 (H) 11.5 - 14.5 % Platelets 320 140 - 440 10*3/uL MPV 9.3 7.4 - 10.4 fL Comprehensive Metabolic Panel Result Value Ref Range Sodium 140 135 - 145 mmol/L Potassium 3.4 (L) 3.5 - 5.1 mmol/L Chloride 87 (L) 98 - 107 mmol/L CO2 31 (H) 22 - 30 mmol/L Anion Gap 21 NA Glucose 170 (H) 70 - 100 mg/dL BUN 73 (H) 7 - 20 mg/dL CREATININE 5.53 (H) 0.52 - 1.25 mg/dL eGFR 12.1 >60 mL/min EGFR IF NonAfrican Salvadorean 10.0 >60 mL/min Calcium 10.2 8.4 - 10.4 mg/dL Albumin,Serum 4.8 3.5 - 5.0 g/dL Total Protein 9.1 (H) 6.3 - 8.2 g/dL Total Bilirubin 1.0 0.2 - 1.3 mg/dL Alkaline Phosphatase 110 38 - 126 U/L ALT 19 13 - 69 U/L AST 40 15 - 46 U/L Lipase Result Value Ref Range Lipase 257 23 - 300 U/L Ammonia Result Value Ref Range Ammonia 24 9 - 30 umol/L CK Result Value Ref Range Total CK 247 (H) 30 - 170 U/L Lactic Acid, Plasma Result Value Ref Range Lactic Acid 3.5 (HH) 0.7 - 2.0 mmol/L Procalcitonin Result Value Ref Range Procalcitonin 0.79 (A) <0.10 ng/mL Interpretation See Below NA Troponin x1 Result Value Ref Range Troponin I 0.947 (H) 0.000 - 0.034 ng/mL Protime-INR Result Value Ref Range Protime 11.9 9.0 - 12.0 s INR 1.2 (H) 0.9 - 1.1 NA Manual Differential Result Value Ref Range Seg Neutrophils 76 40 - 80 % Bands 0 0 - 3 % Lymphocytes 5 (L) 20 - 40 % Monocytes 19 (H) 2 - 10 % Eosinophils 0 (L) 1 - 6 % Basophils 0 0 - 2 % Absolute Neut # 11.6 (H) 2.2 - 8.2 10*3/uL Absolute Lymph # 0.8 (L) 1.1 - 4.5 10*3/uL Absolute Kidder # 2.9 (H) 0.2 - 1.1 10*3/uL Absolute Eos # 0.0 0.0 - 0.5 10*3/uL Absolute Baso # 0.0 0.0 - 0.2 10*3/uL RBC Morphology Normal NA Anisocytosis Slight NA TOTAL CELLS COUNTED 100 NA Radiographs: Ct Head Wo Contrast Result Date: 12/04/2018 Patient Name: ELIAS SHAH ---CT--- Exam Date/Time 12/04/2018 16:38:[address] Head or Brain w/o Contrast Ordering Physician KAY OMER MD, STELLA Hodges Accession Number [id number] CPT4 Codes 99718 () Reason For Exam pt with altered mental status eval for pneumonia Report Reason for examination: Altered mental status. A CT scan of the head is performed from the skull base to the vertex without contrast. Sagittal and coronal reconstructed images are reviewed. The ventricles and sulci are prominent compatible with cerebral atrophy. There is no midline shift or mass effect. No intra-axial or extra-axial fluid collections are identified. There is extensive hypodensity in the periventricular and subcortical white matter consistent with chronic small vessel ischemic changes. There is a remote appearing lacunar infarct in the right thalamus. The brainstem and cerebellum are unremarkable. The globes and intraorbital contents appear intact. There is a retention cyst or polyp in the right maxillary sinus otherwise the paranasal sinuses and mastoid air cells are well aerated. There is carotid siphon and left vertebral artery atherosclerosis. The bony calvarium appears intact. 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 No acute intracranial process. Carotid siphon and left vertebral artery atherosclerosis. Report Dictated on --- Final --- Dictated: 12/04/2018 4:45 pm Dictating Physician: MD MORELAND LAUREN B Signed Date and Time: 12/04/2018 4:48 pm Signed by: MD MORELAND LAUREN B Transcribed Date and Time: 12/04/2018 4:45 Xr Chest Portable Result Date: 12/04/2018 Patient Name: ELIAS SHAH ---Diagnostic Radiology--- Exam Date/Time 12/04/2018 18:28:53 EST Exam CR Chest Portable Ordering Physician MD AVINA MAZEN E Accession Number [id number] CPT4 Codes 91139 () Reason For Exam s/p NG tube placement Report Reason for examination: NG tube. Single view of the chest is performed. Comparison is dated 12/04/2018. An NG tube has been placed and the tip overlies the left upper quadrant. The trachea is midline. There is aortic atherosclerosis. The mediastinal and cardiac silhouetteare stable. The left hemidiaphragm is elevated. The right lateral lower hemithorax is not included on the examination. No confluent infiltrates, pleural effusion or pneumothorax is identified. Report Dictated on --- Final --- Dictated: 12/04/2018 6:38 pm Dictating Physician: MD MORELAND LAUREN B Signed Date and Time: 12/04/2018 6:41 pm Signed by: MD MORELAND LAUREN B Transcribed Date and Time: 12/04/2018 6:38 Xr Chest Portable Result Date: 12/04/2018 Patient Name: ELIAS SHAH ---Diagnostic Radiology--- Exam Date/Time 12/04/2018 17:25:31 EST Exam CR Chest Portable Ordering Physician KAY OMER MD, DONALD L Accession Number [id number] CPT4 Codes 80664 () Reason For Exam pt with altered mental status, elev. WBC and lactate; eval for pneumonia Report Portable semiupright AP view of the chest, 12/04/2018. Reason for examination: Leukocytosis and change in mental status. COMPARISON: No direct comparison available. FINDINGS: Cardiac size is within normal limits. Pulmonary vasculature is normal. The lungs are free of infiltrate. There is moderate eventration of the left hemidiaphragm. There may be mild scarring or atelectasis in the lung bases. No pleural effusion or pneumothorax is identified. IMPRESSION: Eventration of the left hemidiaphragm with possible mild scarring or atelectasis in the lung bases. Report Dictated on --- Final --- Dictated: 12/04/2018 5:33 pm Dictating Physician: MD GUERRIER JOE M Signed Date and Time: 12/04/2018 5:34 pm Signed by: MD GUERRIER JOE M Transcribed Date and Time: 12/04/2018 5:33 Ct Abdomen Pelvis Wo Contrast Result Date: 12/04/2018 Patient Name: ELIAS SHAH ---CT--- Exam Date/Time 12/04/2018 16:38:[address] Abdomen/Pelvis (No PO, No IV) Ordering Physician KAY OMER MD, DONALD L Accession Number [id number] CPT4 Codes 56637 (CT Abdomen/Pelvis (No PO, No IV)) Reason For Exam umbilical hernia Report CT of the abdomen and pelvis without intravenous contrast, 12/04/2018. Reason for examination: Abdominal pain. Umbilical hernia. COMPARISON: None available. TECHNIQUE: 3 mm axial images were obtained through the abdomen and pelvis. No intravenous or oral contrast was administered. Coronal and sagittal reconstructions were created and reviewed. FINDINGS: There is scarring or atelectasis in the lung bases. There is moderate eventration of the left hemidiaphragm. There is coronary atherosclerosis. ABDOMEN: Evaluation is limited by technique. There is moderate gastric distention and moderate proximal to mid small bowel distention which extends to the level of the patient's known umbilical hernia. There is a short segment of small bowel within the hernia with an obstruction at this level. More distal small bowel is decompressed. The colon is also decompressed. There is a nonspecific 1 cm low-attenuation lesion in the left lobe of the liver. No lesion is identified in the spleen, pancreas, or kidneys. There is mild nodular thickening of the adrenal glands bilaterally which may be secondary to hyperplasia. No lymphadenopathy or abnormal fluid collection is noted. Pelvis: No mass or lymphadenopathy is noted. No inflammatory process or abnormal fluid collections identified. There are mild bilateral common iliac artery aneurysms, measuring approximately 2.5 cm in diameter on the right and 2.3 cm in diameter on the left. There are degenerative changes in the lower thoracic and lumbar spine and at sacroiliac joints. IMPRESSION: 1. Small bowel obstruction secondary to an obstructed segment of small bowel within the patient's umbilical hernia. 2. Chronic findings including nodular thickening of the adrenal glands, mild common iliac artery aneurysms, and small, nonspecific lesion in the left lobe of the liver. Report Dictated on --- Final --- Dictated: 12/04/2018 4:58 pm Dictating Physician: MD GUERRIER JOE M Signed Date and Time: 12/04/2018 5:02 pm Signed by: MD GUERRIER JOE M Transcribed Date and Time: 12/04/2018 4:58 ED Course and MDM In brief, Elias Shah is a 78 y.o. male who presented to the emergency department With altered mental status. The patient has a benign abdomen but a concerning umbilical hernia. CT scan was ordered RIGHT away. Given the history of the patient being altered as well as being found laying in the bed for possibly several days combined with his umbilical hernia, fluid hydration was initiated. In addition, the patient was noted to be in atrial fibrillation with rapid ventricular response. Patient was given 5 mg of metoprolol which reduced his heart rate to the 80s. CT scan was significant for incarcerated hernia causing small bowel obstruction. In addition, the patient had elevated creatinine. Surgical team was consult and they immediately came down to evaluate the patient. After evaluation, they have opted to schedule the patient for emergency surgery. Total critical care time today provided was at least 45 minutes. This excludes seperately billable procedure. Critical care time provided for incarcerated umbilical hernia leading to lactic acidosis and renal failure that required close evaluation and/or intervention with concern for patient decompensation. ED Medication Orders Start Ordered Status Ordering Provider 12/04/18 1900 12/04/18 1850 lactated ringers bolus ONCE Ordered VAN TOLLIVER 12/04/18 1815 12/04/18 1807 0.9 % sodium chloride bolus ONCE Acknowledged MISHA AVINA 12/04/18 1745 12/04/18 1732 0.9 % sodium chloride bolus ONCE Last MAR action: New Bag - by LANDEN CLAYTON on 12/04/18 at 1746 STELLA BOSCH 12/04/18 1345 12/04/18 1332 metoprolol (LOPRESSOR) injection 5 mg ONCE Last MAR action: Given - by RADHIKA POOLE on 12/04/18 at 1402 STELLA BOSCH 12/04/18 1330 12/04/18 1326 0.9 % sodium chloride infusion CONTINUOUS Last MAR action: New Bag - by RADHIKA POOLE on 12/04/18 at 1432 STELLA BOSCH 12/04/18 1330 12/04/18 1327 0.9 % sodium chloride bolus ONCE Last MAR action: Stopped - by RADHIKA POOLE on 12/04/18 at 1431 STELLA BOSCH Final Impression 1. Uremia 2. Atrial fibrillation with rapid ventricular response (HCC) DISPOSITION Decision To Admit 12/04/2018 03:03:44 PM @ULFUP@ (Please note that portions of this note may have been completed with a voice recognition program. Efforts were made to edit the dictations but occasionally words are mis-transcribed.) Stella oBsch MD [employer] Stella Bosch MD 12/04/18 1900 Normal [facility] Hemogramon 12-04-2018 Erythrocyte distribution width Ratio (RBC) 15.5 % High 11.5-14.5 [facility] Comment on above: Performed By: #### H EMDF, NH33, PT, CMP3, LIPA4, CK3, TROPN, LACT3, MDIFF, PCAL #### [address] [id number] Hematocrit Volume Fraction (Bld) 40.0 % Normal 40.0-52.0 [facility] Comment on above: Performed By: #### H EMDF, NH33, PT, CMP3, LIPA4, CK3, TROPN, LACT3, MDIFF, PCAL #### [address] Hemoglobin mass conc (Bld) 13.2 g/dL Normal 13.0-18.0 [facility] Comment on above: Result Comment: repe ated Performed By: #### H EMDF, NH33, PT, CMP3, LIPA4, CK3, TROPN, LACT3, MDIFF, PCAL #### [address] MCH Entitic mass (RBC) 28.3 pg Normal 26.0-34.0 [facility] Comment on above: Performed By: #### H EMDF, NH33, PT, CMP3, LIPA4, CK3, TROPN, LACT3, MDIFF, PCAL #### [address] MCHC mass conc (RBC) 33.1 % Normal 32.0-36.0 [facility] Comment on above: Performed By: #### H EMDF, NH33, PT, CMP3, LIPA4, CK3, TROPN, LACT3, MDIFF, PCAL #### [address] MCV Entitic volume (RBC) 85.6 fL Normal 80.0-98.0 [facility] Comment on above: Performed By: #### H EMDF, NH33, PT, CMP3, LIPA4, CK3, TROPN, LACT3, MDIFF, PCAL #### [address] [address] [place], [place] Platelet mean volume Entitic volume (Bld) 8.8 fL Normal 7.4-10.4 [facility] Comment on above: Performed By: #### H EMDF, NH33, PT, CMP3, LIPA4, CK3, TROPN, LACT3, MDIFF, PCAL #### [address] Platelets #/vol (Bld) 236 10*3/uL Normal 140-440 [facility] Comment on above: Performed By: #### H EMDF, NH33, PT, CMP3, LIPA4, CK3, TROPN, LACT3, MDIFF, PCAL #### [address] RBC #/vol (Bld) 4.67 10*6/uL Normal 4.40-5.90 [facility] Comment on above: Performed By: #### H EMDF, NH33, PT, CMP3, LIPA4, CK3, TROPN, LACT3, MDIFF, PCAL #### [address] WBC #/vol (Bld) 13.6 10*3/uL High 3.6-10.7 [facility] Comment on above: Performed By: #### H EMDF, NH33, PT, CMP3, LIPA4, CK3, TROPN, LACT3, MDIFF, PCAL #### [address] Hemogram w/ Autodiffon 12-04 Erythrocyte distribution width Ratio (RBC) 15.2 % High 11.5-14.5 [facility] Comment on above: Performed By: #### H EMDF, NH33, PT, CMP3, LIPA4, CK3, TROPN, LACT3, MDIFF, PCAL #### [address] Hematocrit Volume Fraction (Bld) 48.2 % Normal 40.0-52.0 [facility] Comment on above: Performed By: #### H EMDF, NH33, PT, CMP3, LIPA4, CK3, TROPN, LACT3, MDIFF, PCAL #### [address] Hemoglobin mass conc (Bld) 15.7 g/dL Normal 13.0-18.0 [facility] Comment on above: Performed By: #### H EMDF, NH33, PT, CMP3, LIPA4, CK3, TROPN, LACT3, MDIFF, PCAL #### [address] MCH Entitic mass (RBC) 28.2 pg Normal 26.0-34.0 [facility] Comment on above: Performed By: #### H EMDF, NH33, PT, CMP3, LIPA4, CK3, TROPN, LACT3, MDIFF, PCAL #### [address] MCHC mass conc (RBC) 32.6 % Normal 32.0-36.0 [facility] Comment on above: Performed By: #### H EMDF, NH33, PT, CMP3, LIPA4, CK3, TROPN, LACT3, MDIFF, PCAL #### [address] MCV Entitic volume (RBC) 86.6 fL Normal 80.0-98.0 [facility] Comment on above: Performed By: #### H EMDF, NH33, PT, CMP3, LIPA4, CK3, TROPN, LACT3, MDIFF, PCAL #### [address] Platelet mean volume Entitic volume (Bld) 9.3 fL Normal 7.4-10.4 [facility] Comment on above: Performed By: #### H EMDF, NH33, PT, CMP3, LIPA4, CK3, TROPN, LACT3, MDIFF, PCAL #### [address] Platelets #/vol (Bld) 320 10*3/uL Normal 140-440 [facility] Comment on above: Performed By: #### H EMDF, NH33, PT, CMP3, LIPA4, CK3, TROPN, LACT3, MDIFF, PCAL #### [address] RBC #/vol (Bld) 5.57 10*6/uL Normal 4.40-5.90 [facility] Comment on above: Performed By: #### H EMDF, NH33, PT, CMP3, LIPA4, CK3, TROPN, LACT3, MDIFF, PCAL #### [address] WBC #/vol (Bld) 15.2 10*3/uL High 3.6-10.7 [facility] Comment on above: Performed By: #### H EMDF, NH33, PT, CMP3, LIPA4, CK3, TROPN, LACT3, MDIFF, PCAL #### [address] Lactic Acidon 12-04-2018 Lactate molar conc 1.6 mmol/L Normal 0.7-2.0 [facility] Comment on above: Performed By: #### H EMDF, NH33, PT, CMP3, LIPA4, CK3, TROPN, LACT3, MDIFF, PCAL #### [address] Lactate molar conc 3.5 mmol/L Critically high 0.7-2.0 [facility] Comment on above: Result Comment: Repe ated Performed By: #### H EMDF, NH33, PT, CMP3, LIPA4, CK3, TROPN, LACT3, MDIFF, PCAL #### [address] Lipaseon 12-04-2018 Lipase enzyme act/vol 257 U/L Normal 23-300 [facility] Comment on above: Performed By: #### H EMDF, NH33, PT, CMP3, LIPA4, CK3, TROPN, LACT3, MDIFF, PCAL #### [address] Manual Diffon 12-04-2018 Abs Neutrophile Cnt 11.6 10*3/uL High 2.2-8.2 [facility] Comment on above: Performed By: #### H EMDF, NH33, PT, CMP3, LIPA4, CK3, TROPN, LACT3, MDIFF, PCAL #### [address] Anisocytosis Ql (Bld) Slight Normal [facility] Comment on above: Performed By: #### H EMDF, NH33, PT, CMP3, LIPA4, CK3, TROPN, LACT3, MDIFF, PCAL #### [address] Lymphocytes #/vol (Bld) 0.8 10*3/uL Low 1.1-4.5 [facility] Comment on above: Performed By: #### H EMDF, NH33, PT, CMP3, LIPA4, CK3, TROPN, LACT3, MDIFF, PCAL #### [address] Lymphocytes/100 WBC (Bld) 5 % Low 20-40 [facility] Comment on above: Performed By: #### H EMDF, NH33, PT, CMP3, LIPA4, CK3, TROPN, LACT3, MDIFF, PCAL #### [address] Monocytes #/vol (Bld) 2.9 10*3/uL High 0.2-1.1 [facility] Comment on above: Performed By: #### H EMDF, NH33, PT, CMP3, LIPA4, CK3, TROPN, LACT3, MDIFF, PCAL #### [address] [place], [place] Monocytes/100 WBC (Bld) 19 % High 2-10 S [facility] Comment on above: Performed By: #### H EMDF, NH33, PT, CMP3, LIPA4, CK3, TROPN, LACT3, MDIFF, PCAL #### [address] RBC morphology finding Nom (Bld) Normal Normal [facility] Comment on above: Performed By: #### H EMDF, NH33, PT, CMP3, LIPA4, CK3, TROPN, LACT3, MDIFF, PCAL #### [address] [address] [place], [place] Seg Neutrophils 76 % Normal 40-80 [facility] Comment on above: Performed By: #### H EMDF, NH33, PT, CMP3, LIPA4, CK3, TROPN, LACT3, MDIFF, PCAL #### [address] [address] [place], [place] Abs Baso Cnt 0.0 10*3/uL Normal 0.0-0.2 [facility] Comment on above: Performed By: #### H EMDF, NH33, PT, CMP3, LIPA4, CK3, TROPN, LACT3, MDIFF, PCAL #### [address] [address] [place] [place], [place] Bands 0 % Normal 0-3 [facility] Comment on above: Performed By: #### H EMDF, NH33, PT, CMP3, LIPA4, CK3, TROPN, LACT3, MDIFF, PCAL #### [address] Basophils/100 WBC (Bld) 0 % Normal 0-2 S [facility] Comment on above: Performed By: #### H EMDF, NH33, PT, CMP3, LIPA4, CK3, TROPN, LACT3, MDIFF, PCAL #### [address] Cells counted 100 Normal [facility] Comment on above: Performed By: #### H EMDF, NH33, PT, CMP3, LIPA4, CK3, TROPN, LACT3, MDIFF, PCAL #### [address] Eosinophils #/vol (Bld) 0.0 10*3/uL Normal 0.0-0.5 [facility] Comment on above: Performed By: #### H EMDF, NH33, PT, CMP3, LIPA4, CK3, TROPN, LACT3, MDIFF, PCAL #### [address] Eosinophils/100 WBC (Bld) 0 % Low 1-6 [facility] Comment on above: Performed By: #### H EMDF, NH33, PT, CMP3, LIPA4, CK3, TROPN, LACT3, MDIFF, PCAL #### [address] [id number] Procalcitoninon 12-04-2018 Protein mass conc 0.79 ng/mL Abnormal <0.10 [facility] Comment on above: Performed By: #### H EMDF, NH33, PT, CMP3, LIPA4, CK3, TROPN, LACT3, MDIFF, PCAL #### [address] Interpretation See Below Normal [facility] Comment on above: Result Comment: PCT <0.50 = Low risk of severe sepsis and/or septic shock. PCT >2.00 = High risk of severe sepsis and/or septic shock. Performed By: #### H EMDF, NH33, PT, CMP3, LIPA4, CK3, TROPN, LACT3, MDIFF, PCAL #### [address] [phone] Prothrombin Timeon 9 INR Coag RelTime (PPP) 1.2 High 0.9-1.1 [facility] Comment on above: Result Comment: Gonzalo mmended Anticoagulant Therapy: SEE BELOW ----- INR of 2.0 - 3.0 : - Prophylaxis of Venous Thrombosis (high-risk surgery) - Treatment of Venous Thrombosis - Treatment of Pulmonary Embolism (Includes tissue heart valves, Acute Myocardial Infarction to prevent systemic embolism, Valvular Heart Disease, and Atrial Fibrillation) ----- INR of 2.5 - 3.5 : - Mechanical Prosthetic Valves (high risk) - If oral anticoagulant therapy is used to prevent Myocardial Infarction Performed By: #### H EMDF, NH33, PT, CMP3, LIPA4, CK3, TROPN, LACT3, MDIFF, PCAL #### [address] [phone] Prothrombin time (PT) Coag time (PPP) 11.9 s Normal 9.0-12.0 [facility] Comment on above: Result Comment: . Performed By: #### H EMDF, NH33, PT, CMP3, LIPA4, CK3, TROPN, LACT3, MDIFF, PCAL #### [address] [phone] Surgical Pathologyon [address] [facility] 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 MARGINS: UNREMARKABLE. PORTIONS OF FIBROADIPOSE, CONSISTENT WITH HERNIA SAC. NEGATIVE FOR MALIGNANCY. W[place]/JAF Signature> RANDAL GAN M.D. CLINICAL INFORMATION: Not provided SPECIMEN: HERNIA , and small bowel GROSS DESCRIPTION: Hernia sac and small bowel Received in formalin is a length of apparent small bowel 14 x 2 cm. There is a small amount of mesenteric adipose tissue attached to the small bowel. The serosal surface of the small bowel is duly red-purple to zamora. There are stapled suture lines present at each end of the specimen. The lumen contains hemorrhagic material. The mucosa centrally is hemorrhagic. The mucosa near the stapled suture line is pink-singletary with normal transverse folds. No polyps or lesions are seen. Upon transection, the wall of the small bowel centrally is hemorrhagic. Also received in the same container is a fibrofatty soft tissue segment measuring 2.0 x 2.0 x 1.0 cm. Upon transection, the cut surfaces are bulging yellow-singletary. No areas of hemorrhage or friability are identified. Multiple security systems sales representative sections of the specimen are submitted in three cassettes as follows: block 1 section adjacent to each stapled suture line, block 2 sections of the small bowel segment including areas of transition near each end; block 3 section of fibrofatty soft tissue. (bits ss, 3) JCK/CHERYL Disclaimer: The following statement applies to all immunohistochemistry, in situ hybridization, molecular studies, and immunofluorescence testing. The use of one or more reagents in the above tests is regulated as an analyte specific reagent (ASR). These tests were developed and their performance characteristics determined by the clinical laboratories of [facility]. They have not been cleared by the [place] Food and Drug Administration (FDA). The FDA has determined that such clearance or approval is not necessary. All the above immunostains were performed on paraffin embedded tissue. Appropriate positive and negative controls (where applicable) were run in parallel with the patient's specimen; these controls showed expected staining pattern, with acceptable intensity of staining. Immunohistochemical assays have not been validated on decalcified tissues. Results should be interpreted with caution given the raised possibility of false negativity on decalcified specimens. Professional Performing Location: [address] [address]. DEPARTMENT OF PATHOLOGY AND LABORATORY MEDICINE [place], [place] [address] Normal [facility] TS GELon 12-04-2018 TS GEL ABO Group: O Rh, Gel: POS Antibody Screen Gel: NEG Normal [facility] Comment on above: Performed By: #### H EMDF, NH33, PT, CMP3, LIPA4, CK3, TROPN, LACT3, MDIFF, PCAL #### [address] [address] Troponin Ion 12-04-2018 Troponin I.cardiac mass conc 0.947 ng/mL High 0.000-0.034 [facility] Comment on above: Result Comment: 0.04 6 - 0.400 = Indeterminate > 0.400 = Consider Myocardial Injury Performed By: #### H EMDF, NH33, PT, CMP3, LIPA4, CK3, TROPN, LACT3, MDIFF, PCAL #### [address] [address] No Panel Information Influenza Types A,B Direct FA (RYLAN) [facility] Work Phone: RSV Ag EIA RSV Ag Immune stain Ql (Tiss) [facility] Work Phone: Vital Signs Date Time Vital Sign Value Performing Clinician Faci lity 08-01-2025 15:02-0400 Body temperature 99.3 [degF] Dr. Geoffrey Garza MD Work Phone: [facility] 08-01-2025 15:02-0400 Body weight 92.[address] Geoffrey Garza MD Work Phone: [facility] 08-01-2025 15:02-0400 Diastolic blood pressure 55 mm[Hg] Dr. Geoffrey Garza MD Work Phone: [facility] 08-01-2025 15:02-0400 Heart rate 69 /min Dr. Geoffrey Garza MD Work Phone: [facility] 08-01-2025 15:02-0400 Respiratory rate 14 /min Dr. Geoffrey Garza MD Work Phone: [facility] 08-01-2025 15:02-0400 SaO2% (BldA) [Mass fraction] 96 % Dr. Geoffrey Garza MD Work Phone: [facility] 08-01-2025 15:02-0400 Systolic blood pressure 124 mm[Hg] Dr. Geoffrey Garza MD Work Phone: [facility] 07-27-2025 20:22-0400 Body temperature 98.8 [degF] Dr. Geoffrey Garza MD Work Phone: [facility] 07-27-2025 20:22-0400 Diastolic blood pressure 75 mm[Hg] Dr. Geoffrey Garza MD Work Phone: [facility] 07-27-2025 20:22-0400 Heart rate 73 /min Dr. Geoffrey Garza MD Work Phone: [facility] 07-27-2025 20:22-0400 Respiratory rate 21 /min Dr. Geoffrey Garza MD Work Phone: [facility] 07-27-2025 20:22-0400 SaO2% (BldA) [Mass fraction] 95 % Dr. Geoffrey Garza MD Work Phone: [facility] 07-27-2025 20:22-0400 Systolic blood pressure 163 mm[Hg] Dr. Geoffrey Garza MD Work Phone: [facility] 07-27-2025 14:22-0400 Body height 175.[address] Geoffrey Garza MD Work Phone: [facility] 07-27-2025 14:22-0400 Body mass index (BMI) [Ratio] 26.9 kg/m2 Dr. Geoffrey Garza MD Work Phone: [facility] 07-27-2025 14:22-0400 Body weight 82.[address] Geoffrey Garza MD Work Phone: [facility] 06-22-2025 10:01-0400 Body height 175.[address] Geoffrey Garza MD Work Phone: [phone] 06-22-2025 10:01-0400 Body mass index (BMI) [Ratio] 29.9 kg/m2 Dr. Geoffrey Garza MD Work Phone: [facility] 06-22-2025 10:01-0400 Body weight 92.[address] Geoffrey Garza MD Work Phone: [facility] 06-22-2025 10:01-0400 Diastolic blood pressure 76 mm[Hg] Dr. Geoffrey Garza MD Work Phone: [facility] 06-22-2025 10:01-0400 Heart rate 65 /min Dr. Geoffrey Garza MD Work Phone: [facility] 06-22-2025 10:01-0400 Respiratory rate 18 /min Dr. Geoffrey Garza MD Work Phone: [facility] 06-22-2025 10:01-0400 Systolic blood pressure 119 mm[Hg] Dr. Geoffrey Graza MD Work Phone: [facility] 05-22-2025 10:44-0400 Body height 175.[address] Geoffrey Garza MD Work Phone: [facility] 05-22-2025 10:44-0400 Body mass index (BMI) [Ratio] 29.6 kg/m2 Dr. Geoffrey Garza MD Work Phone: [facility] 05-22-2025 10:44-0400 Body temperature 98.2 [degF] Dr. Geoffrey Garza MD Work Phone: [facility] 05-22-2025 10:44-0400 Body weight 90.[address] Geoffrey Garza MD Work Phone: [facility] 05-22-2025 10:44-0400 Diastolic blood pressure 65 mm[Hg] Dr. Geoffrey Garza MD Work Phone: [facility] 05-22-2025 10:44-0400 Heart rate 59 /min Dr. Geoffrey Garza MD Work Phone: [facility] 05-22-2025 10:44-0400 Respiratory rate 16 /min Dr. Geoffrey Garza MD Work Phone: [facility] 05-22-2025 10:44-0400 SaO2% (BldA) [Mass fraction] 95 % Dr. Geoffrey Garza MD Work Phone: [facility] 05-22-2025 10:44-0400 Systolic blood pressure 160 mm[Hg] Dr. Geoffrey Garza MD Work Phone: [facility] 07-13-2023 14:42-0400 Body height 175.26 cm [facility] 07-13-2023 14:42-0400 Body mass index (BMI) [Ratio] 29.5 kg/m2 [facility] 07-13-2023 14:42-0400 Body temperature 97.5 [degF] [facility] 07-13-2023 14:42-0400 Body weight 90.71 kg [facility] 07-13-2023 14:42-0400 Diastolic blood pressure 75 mm[Hg] [facility] 07-13-2023 14:42-0400 Heart rate 82 /min [facility] 07-13-2023 14:42-0400 Respiratory rate 16 /min [facility] 07-13-2023 14:42-0400 SaO2% (BldA) [Mass fraction] 97 % [facility] 07-13-2023 14:42-0400 Systolic blood pressure 154 mm[Hg] [facility] 03-18-2023 14:00-0400 Body mass index (BMI) [Ratio] 29.2 kg/m2 [facility] 03-18-2023 14:00-0400 Body weight 89.89 kg [facility] 03-18-2023 14:00-0400 Diastolic blood pressure 73 mm[Hg] [facility] 03-18-2023 14:00-0400 Heart rate 60 /min [facility] 03-18-2023 14:00-0400 Respiratory rate 18 /min [facility] 03-18-2023 14:00-0400 Systolic blood pressure 156 mm[Hg] [facility] 09-23-2022 10:21-0400 Body height 175.26 cm [facility] Work Phone: 09-23-2022 10:21-0400 Body mass index (BMI) [Ratio] 29.5 kg/m2 [facility] Work Phone: 09-23-2022 10:21-0400 Body weight 90.71 kg [facility] Work Phone: 09-23-2022 10:21-0400 Diastolic blood pressure 6 mm[Hg] [facility] Work Phone: 09-23-2022 10:21-0400 Heart rate 59 /min [facility] Work Phone: 09-23-2022 10:21-0400 Respiratory rate 18 /min [facility] Work Phone: 09-23-2022 10:21-0400 SaO2% (BldA) [Mass fraction] 96 % [facility] Work Phone: 09-23-2022 10:21-0400 Systolic blood pressure 137 mm[Hg] [facility] Work Phone: 07-14-2022 14:28-0400 Body height 175.26 cm [facility] Work Phone: 07-14-2022 14:22-0400 Body mass index (BMI) [Ratio] 29.3 kg/m2 [facility] Work Phone: 07-14-2022 14:22-0400 Body temperature 98.6 [degF] [facility] Work Phone: 07-14-2022 14:22-0400 Body weight 90.26 kg [facility] Work Phone: 07-14-2022 14:22-0400 Diastolic blood pressure 65 mm[Hg] [facility] Work Phone: 07-14-2022 14:22-0400 Heart rate 62 /min [facility] Work Phone: 07-14-2022 14:22-0400 Respiratory rate 15 /min [facility] Work Phone: 07-14-2022 14:22-0400 SaO2% (BldA) [Mass fraction] 94 % [facility] Work Phone: 07-14-2022 14:22-0400 Systolic blood pressure 162 mm[Hg] [facility] Work Phone: 01-14-2022 11:57-0500 Body height 175.26 cm [facility] Work Phone: 01-14-2022 11:57-0500 Body weight 93.89 kg [facility] Work Phone: 01-14-2022 11:57-0500 Diastolic blood pressure 67 mm[Hg] [facility] Work Phone: 01-14-2022 11:57-0500 Heart rate 55 /min [facility] Work Phone: 01-14-2022 11:57-0500 Respiratory rate 18 /min [facility] Work Phone: 01-14-2022 11:57-0500 SaO2% (BldA) [Mass fraction] 96 % [facility] Work Phone: 01-14-2022 11:57-0500 Systolic blood pressure 172 mm[Hg] [facility] Work Phone: 01-13-2022 14:12-0500 Body mass index (BMI) [Ratio] 30.6 kg/m2 [facility] Work Phone: 01-13-2022 14:12-0500 Body temperature 98.2 [degF] [facility] Work Phone: 01-13-2022 14:12-0500 Body weight 94 kg [facility] Work Phone: 01-13-2022 14:12-0500 Diastolic blood pressure 78 mm[Hg] [facility] Work Phone: 01-13-2022 14:12-0500 Heart rate 57 /min [facility] Work Phone: 01-13-2022 14:12-0500 Respiratory rate 16 /min [facility] Work Phone: 01-13-2022 14:12-0500 SaO2% (BldA) [Mass fraction] 96 % [facility] Work Phone: 01-13-2022 14:12-0500 Systolic blood pressure 159 mm[Hg] [facility] Work Phone: 06-27-2021 14:22-0400 Body mass index (BMI) [Ratio] 30.6 kg/m2 Dr. Geoffrey Garza MD Work Phone: [facility] 06-27-2021 14:22-0400 Body mass index (BMI) [Ratio] 30.6 kg/m2 [facility] Work Phone: 06-14-2021 14:45-0400 Body mass index (BMI) [Ratio] 29.5 kg/m2 [facility] Work Phone: 02-18-2021 14:45-0400 Body mass index (BMI) [Ratio] 29.8 kg/m2 [facility] Work Phone: Encounters Encounter Date Encounter Type Care Provider Facility Start: 08-11-2025 ambulatory La MCCARY Facility:[facility] Start: 08-02-2025 ambulatory [facility] Facility:[facility] Start: 08-01-2025 End: 08-01-2025 ambulatory [facility] Facility:[facility] Start: 08-01-2025 End: 08-01-[address] Channing Mckeon MD -[facility] Work Phone: Start: 07-27-2025 End: 07-27-2025 Emergency department patient visit Dr. Geoffrey Garza MD Work Phone: -Emergency Department Work Phone: Start: 07-27-2025 Non-patient / Non-visit Dr. Channing sanchez MD -[facility] Start: 07-27-[address] Husam Khan MD -Cardiovascular Services Work Phone: Start: 07-27-2025 ambulatory [facility] Facility:[facility] Start: 07-26-[address] Husam Khan MD -Laboratory Phy Office 3rd Flr Start: 07-26-2025 ambulatory Husam Khan Facility:[facility] Start: 06-22-2025 End: 06-22-2025 Patient encounter procedure La MCCRAY -[facility] Work Phone: Start: 06-22-2025 End: 06-22-[address] Geoffrey Garza MD Work Phone: -[facility] Start: 05-22-2025 End: 05-22-[address] Geoffrey Garza MD -[facility] Work Phone: Start: 05-22-2025 End: 05-22-[address] Geoffrey Garza MD Work Phone: -[facility] Start: 05-04-[address] Andrea Garza MD -[facility] Start: 05-04-2025 ambulatory Husam Khan Facility:[facility] Start: 12-29-2024 End: 12-29-[address] Husam Khan MD -Laboratory Phy Office 3rd Flr Start: 12-29-2024 End: 12-29-2024 ambulatory Husam Khan Facility:[facility] Start: 09-02-2023 End: 09-02-[address] Husam Khan Work Phone: [facility] Work Phone: Start: 09-02-2023 End: 09-02-[address] Husam Khan Work Phone: [facility] Work Phone: Start: 07-13-2023 End: 07-13-2023 Patient encounter procedure MD Husam BACON [facility] Work Phone: Start: 07-07-2023 End: 07-07-2023 ambulatory MD Husam BACON [facility] Work Phone: Start: 07-07-2023 End: 07-07-2023 Patient encounter procedure MD Husam BACON [facility] Work Phone: Start: 06-25-2023 End: 06-25-2023 Patient encounter procedure MD Husam Khan [facility]-Laboratory, Phy Office 3rd Flr Start: 03-18-2023 End: 03-18-2023 Patient encounter procedure MD Husam BACON [facility] Work Phone: Start: 02-10-2023 End: 02-10-2023 ambulatory [facility] Work Phone: Start: 02-10-2023 End: 02-10-2023 [facility] Start: 12-25-2022 End: 12-25-2022 [facility] Start: 10-20-2022 End: 10-20-[address] [facility] Work Phone: Start: 10-20-2022 End: 10-20-2022 Patient encounter procedure [facility]-Pulmonary Services/Neurology Start: 10-02-2022 Non-patient / Non-visit [facility] Start: 10-02-2022 End: 10-02-[address] [facility] Work Phone: Start: 10-02-2022 End: 10-02-2022 Patient encounter procedure [facility]-Cardiovascular Services Start: 09-23-2022 End: 09-23-2022 Patient encounter procedure [facility] Start: 08-12-2022 End: 08-12-[address] [facility] Work Phone: Start: 08-12-2022 End: 08-12-2022 Patient encounter procedure [facility]-Laboratory Start: 07-14-2022 End: 07-14-2022 Patient encounter procedure [facility] Start: 07-08-2022 End: 07-08-2022 ambulatory MD Weiner [facility] Work Phone: Start: 07-08-2022 End: 07-08-2022 Patient encounter procedure MD Weiner [facility] Start: 06-19-2022 End: 06-19-2022 Patient encounter procedure [facility], Phy Office 3rd Flr Start: 03-04-2022 End: 03-04-2022 Patient encounter procedure [facility]-Laboratory, Phy Office 3rd Flr Start: 01-14-2022 End: 01-14-2022 Patient encounter procedure [facility] Start: 01-13-2022 End: 01-13-2022 Patient encounter procedure MD Weiner [facility] Start: 01-08-2022 Registered Recurring [facility] Start: 11-11-2021 Patient encounter procedure [facility]-Laboratory Start: 12-04-2018 Evaluation and management of inpatient [facility] Procedures Date Procedure Procedure Detail Performing Clinician Start: 07-27-[address] Geoffrey Garza MD Work Phone: Start: 07-27-2025 CT of abdominal aort a with contrast Dr. Geoffrey Garza MD Work Phone: Start: 07-26-2025 SARS-CoV-2, Influenz a & RSV (PCR) Dr. Geoffrey Garza MD Work Phone: Start: 05-04-2025 Albumin/Globulin ratio Dr. Geoffrey Garza MD Work Phone: Start: 05-04-[address] Geoffrey Garza MD Work Phone: Start: 05-04-[address] e fraction Dr. Geoffrey Garza MD Work Phone: Start: 05-04-[address] M measurement Dr. Geoffrey Garza MD Work Phone: Start: 05-04-2025 Total iron binding capacity measurement Dr. Geoffrey Garza MD Work Phone: Start: 12-29-2024 Measurement of renal function Dr. Husam Khan MD Work Phone: Comment on above: GFR Calc Start: 12-29-2024 Vitamin D, 25-hydrox y measurement Dr. Husam Khan MD Work Phone: Comment on above: Vitamin D 25(OH) Sta tus Range Deficiency <20 ng/mL (50nmol/L) Insufficiency 20 - 30 ng/mL (50 - 75 nmol/L) Sufficiency 30 - 100 ng/mL (75 - 250 nmol/L) Toxicity >100 ng/mL (>250 nmol/L) Start: 07-04-2019 History of coronary artery bypass grafting S/P CABG x 2 MD Husam Khan Comment on above: [address] Cristhian Trife cta pericardial prosthesis; CABG X2 with HARRINGTON to LAD, reverse SVG to ramus intermedius, and exclusion of left atrial appendage with 35 mm Atricure clip (pt poor anticoag candidate d/t hematuria). per Dr. Wayne Rivers 07/04/19 @ [facility] Start: 06-23-2019 History of coronary artery bypass grafting History of coronary artery bypass surgery La MCCRAY Comment on above: CABG X2 with HARRINGTON to LAD, reverse SVG to ramus intermedius, and exclusion of left atrial appendage with 35 mm Atricure clip (pt poor anticoag candidate d/t hematuria). per Dr. Wayne Rivers 07/04/19 @ [facility] Start: 12-09-2018 Microscopic examinat ion of blood, culture GEORGIE LANDIS Comment on above: Order Comment: Speci men Source Comment:Blood Performed By: #### H EMDF, NH33, PT, CMP3, LIPA4, CK3, TROPN, LACT3, MDIFF, PCAL #### [address] [address] Influenza Types A,B Direct FA (RYLAN) MD Husam Khan Influenza Types A,B Direct FA (RYLAN) Respiratory syncytia l virus antigen assay MD Husam Khan Respiratory syncytia l virus antigen assay Urine culture Plan of Treatment Date Care Activity Detail Author Start: 07-27-2025 [facility] Start: 02-10-2023 Procedure [facility] Patient Education ED Peripheral Artery Disease (PAD) [facility] Work Phone: Procedure [facility] Immunizations Immunization Date Immunization Notes Care Provider Fa cility 01-16-2021 Covid (Pfizer) MD Weiner Bill [facility] 12-27-2020 Covid (Pfizer) [facility] Payers Date Payer Category Payer Medicare [id number] 2021 Private Health Insurance [id number] 2021 Self-pay [id number] 1940 Unknown [id number] 2.16.8 [id number] Medicare Private Health Insurance Unknown [id number] 2.16.8 [id number] Unknown [id number] 2.16.8 [id number] Unknown [id number] 2.16.8 [id number] Unknown [id number] 2.16.8 [id number] Unknown [id number] 2.16.8 [id number] Unknown [id number] 2.16.8 [id number] Unknown [id number] 2.16.8 [id number] Unknown [id number] 2.16.8 [id number] Unknown [id number] 2.16.8 [id number] Unknown [id number] 2.16.8 [id number] Unknown [id number] 2.16.8 [id number] Social History Date Type Detail Facility Start: 01-14-2022 End: 03-18-2023 Tobacco smoking status NHIS Unknown if ever smoked [facility] Start: 07-13-2019 Occasional [facility] Start: 07-13-2019 None [facility] Start: 07-14-2019 With Family [facility] Start: 07-13-2019 Non-smoker [facility] Start: 1940 Sex Assigned At Male [facility] Start: 03-18-2023 End: 08-01-2025 Tobacco smoking status NHIS Ex-smoker (finding) [facility] Radiology Diagnostic study note 07-27-2025 Note Date & Type Note Facility 07-27-2025 Radiology Diagnostic study note [facility] Imaging Services [address] [place] [address] [id number] CTA Abd w/Runoff W/WO Contrast MR#: [id number] Acct: [id number] Name: ELIAS SHAH Rep #: [id number] 2 : 1940 M 85 From: Kj Curtis MD PCP: Dr. Husam Khan MD Status: REG E R Study:CTA Abd w/Runoff W/WO Contrast Date of Exam: 07/27/25 Exam# [id number] Ordering Dr: Neymar Medrano DO PROCEDURE: CTA ABD W/RUNOFF W/WO CONTRAST 07/27/2025 REASON FOR EXAM: PSEUDOANEURYSM OF THE RIGHT POPLITEAL ARTERY TECHNIQUE: Procedure Code: [id number] Modality: CT Procedure: CTA ABD W/RUNOFF W/WO CONTRAST Multiplanar Sagittal and Coronal images were obtained. Three-dimensional reconstructions CONTRAST: Isovue 370 VOLUME: 100 mL One or more dose reduction techniques were used (e.g., Automated exposure control, adjustment of the mA and/or kV according to patient size, use of iterative reconstruction technique). RADIATION DOSE SUMMARY: CTDlvol: 22 mGy DLP: 1445 mGycm FINDINGS: Inspection of the angiographic study demonstrates normal distal thoracic aorta. Normal upper abdominal aorta. Normal celiac artery, superior mesenteric artery and renal arteries with calcified plaque at their origins. No aneurysm. No dissection. 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 On the right, patent external iliac and common femoral artery. Patent superficial femoral artery and deep femoral artery with scattered calcified plaque. Moderate stenosis of the distal right superficial femoral artery with extensive calcification of the popliteal artery on the right. There is a popliteal pseudoaneurysm present which measures 2.4 x 2.2 cm. Pseudoaneurysm was described in the clinical history. No intraluminal thrombus but prominent hematoma surrounding the pseudoaneurysm. There is atherosclerotic change within the infrapopliteal vessels with segmental loss of opacification of the right anterior tibial artery. On the left, calcified plaque in the common femoral artery. Patent deep femoraland superficial femoral artery with calcified plaque in the distal SFA and popliteal artery. Three-vessel runoff segmentally below the left knee. 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 Prominent pseudoaneurysm involving the right popliteal artery with surrounding hematoma. Pseudoaneurysm was mentioned in the clinical history. Reading Location: [id number] CC: Dr. Ilana Medrano DO; Dr. Husam Khan MD ~ Product Engineering Manager: Signed [facility] Discharge instructions 07-25-2025 Note Date & Type Note Facility 07-25-2025 Hospital Discharg e instructions Additional Instructions Continue taking your medications including your Plavix. The vascular surgery office should call you tomorrow. If you do not hear from them please call them. The plan is to have an office visit this coming Thursday and you likely have a procedure to correct this pseudoaneurysm the following day. If it anytime before that he develops severe pain or swelling behind his right knee, numbness or significant coldness to the right foot please immediately return to the emergency room. Take care not to have any further falls or injuries as we do not want to make this unstable or worsen. 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 May 22, 2025 10:17am History of aortic valve replacement with bioprosthetic valve June, acute June 22, 2025 9:53am Coronary artery disease chronic June 22, 2025 9:53am Essential (primary) hypertension chronic June 22, 2025 9:53am Hyperlipidemia chronic June 22, 2025 9:53am History of coronary artery bypass surgery June, resolved June 22, 2025 9:53am [facility] Work Phone: Evaluation note 06-23-2019 Note Date & Type Note Facility 06-23-2019 Evaluation note Diagnosis Onset Date History of aortic valve replacement with bioprosthetic valve June, acute Coronary artery disease hand hide stretcher alana Essential (primary) hypertension chronic GERD with esophagitis chroni c Hyperlipidemia chronic History of coronary artery b ypass surgery June, resolved Iron deficiency anemia due t o chronic blood loss 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) 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 Work Phone: Evaluation note Note Date & Type Note Facility Evaluation note No assessment information availa ble [facility] Work Phone: Evaluation note Note Date & Type Note Facility Evaluation note Diagnosis Onset Date Iron deficiency anemia due t o chronic blood loss 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) 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 May 22, 2025 10:17am [facility] Work Phone: Reason for referral (narrative) Note Date & Type Note Facility Reason for referral (narrative) No reason for referral information available [facility] Work Phone: Summary Purpose Family History Relationship Condition Age at Onset Recorded Date/T samina father Malignant neoplasm Unknown Malignant neoplasm of lung Unknown sister Malignant neoplasm Unknown Malignant neoplasm of breast Unknown Malignant neoplasm of pancreas Unknown Advance Directives Advance Directive Response Recorded Date/ Time Advance Directives No March 02 9:11am Living Will Yes August 20, 2019 7:58am Power of Horse Buyer Yes July 7:58am Advance Directive Response Recorded Date/ Time Advance Directives No March 02 8:11am Living Will Yes August 20, 2019 6:58am Power of Horse Buyer Yes July 6:58am Advance Directive Response Recorded Date/ Time Advance Directives No March 02 9:11am Advance Directive Response Recorded Date/ Time Living Will Yes August 20, 2019 7:58am Do you have a Healthcare Power of Horse Buyer? Yes August 20, 2019 7:58am Advance Directives No March 02 9:11am Advance Directive Response Recorded Date/ Time Living Will Yes August 20, 2019 7:58am Do you have a Healthcare Power of Horse Buyer? Yes August 20, 2019 7:58am Do you have a Healthcare Power of Horse Buyer? Yes July 27, 2025 3:40pm Advance Directives No March 02 9:11am Advance Directive Response Recorded Date/ Time Living Will Yes August 20, 2019 7:58am Do you have a Healthcare Power of Horse Buyer? Yes August 20, 2019 7:58am Do you have a Healthcare Power of Horse Buyer? Yes July 27, 2025 3:40pm Advance Directives Yes July 8:30am Hospital Course Note Discharge Summary Elias vaz : 1940 ADMIT DATE: 12/04/2018 DISCHARGE DATE: 12/13/2018 ATTENDING PHYSICIAN: Felipe Gonzáles DO VISIT STATUS: Admission CODE STATUS: Full Code DISCHARGE DIAGNOSES: Principal Problem: Incarcerated umbilical hernia Active Problems: Small bowel obstruction (HCC) Uremia MAURO (acute kidney injury) (HCC) Paroxysmal atrial fibrillation (HCC) LBBB (left bundle branch block) Acute metabolic encephalopathy Declining functional status Vitamin D deficiency QT prolongation Cognitive deficits Aortic stenosis, severe Acute encephalopathy Resolved Problems: * No resolved hospital problems. * HOSPITAL COURSE: Elias Shah is a 78 y.o. male who presented to [facility] on 12/04/2018 with an incarcerated, strangulated hernia. He went to the OR urgently for diagnostic lap, which converted to open exploratory laparotomy when the bowel was noted to be nonviable. The diseased segment was resected and the bowel reanastomosed. Post-operatively he was transferred t (more content not included)... Note O ID: [id number] Author: Jerel rodas (Mahendra) Yana Service: Cardiovascular Surgery Author Type: Physician Cork Pressing Machine Operator Type: Discharge Summary Filed: 07/13/2019 4:08 PM Note Text: Attestation signed by Wayne Rivers at 07/14/2019 2:40 PM Attending Note I evaluated the patient and personally participated in the simmons components. I agree with the resident's findings and plan as documented and have discussed the case and management of the patient's care with the resident. Signature: Wayne Rivers MD Date: 07/14/2019 Time: 2:40 PM DISCHARGE SUMMARY PATIENT NAME: Elias Shah Code Status: Not on file Highest Readmission Risk Score: 19 The 30 day readmissions risk score is derived from an internally validated risk model which evaluates patient level characteristics, utilization history, medication orders and lab results (more content not included)... Note HNO ID: [id number] Author: Leah Peñaloza Service: Hospital Medicine Author Type: Physician Type: Discharge Summary Filed: 08/26/2019 2:30 PM Note Text: DISCHARGE SUMMARY PATIENT NAME: Elias Shah Code Status: Not on file Highest Readmission Risk Score: 16 The 30 day readmissions risk score is derived from an internally validated risk model which evaluates patient level characteristics, utilization history, medication orders and lab results up until the day of discharge. Patients with a score of 40 or above are considered highest risk for readmission. Specific patient level drivers will be listed at the bottom of the summary. Admission Information Admission Information ADMIT DATE: 08/20/2019 DISCHARGE DATE: August 26, 2019 MY DOCTORS AND MEDICAL TEAM: [facility] Doctor: Ben Peñaloza Primary Care Provider: Mal Main MD My Medical Team Members: Treatment Team: Attending Provider: Ben Peñaloza Primary Service: Malik Grace Consulting: Roseanna Conner MY CONDITION AT DI (more content not included)... Note HNO ID: [id number] Author: Jerel Millan (Pa) Service: Cardiovascular Surgery Author Type: Physician Cork Pressing Machine Operator Type: Procedures Filed: 07/11/2019 3:42 PM Note Text: BEDSIDE PROCEDURE NOTE Temporary epicardial pacing wire removal Date/Start Time: 07/11/2019 3:41 PM Performed by: Marlon Millan (Pa) Authorized by: Marlon Millan (Pa) Pre-procedure Details: Personnel directly involved with the procedure wore the appropriate PPE. The area was prepped with chlorhexidine (Chloroprep) and allowed to dry. Medications: Procedure Details: Atrial and ventricular pacing wires removed with tips intact. Minimal sero/ sang drainage from ventricular lead site. Dressing applied. AGUSTO Akins notified of post procedure orders. Post-procedure Details: Patient tolerated the procedure well with no immediate complications Estimated Blood Loss: None Specimens Sent: None SIGNATURE: Marlon Millan PA-C PATIENT NAME: Elias Grantdes DATE: July 11, 2019 TIME: 3:40 PM PAGER/CONTACT #: Procedure Findings Note HNO ID: [id number] Author: Jerel Millan (Pa) Service: Cardiovascular Surgery Author Type: Physician Cork Pressing Machine Operator Type: Procedures Filed: 07/11/2019 3:42 PM Note Text: BEDSIDE PROCEDURE NOTE Temporary epicardial pacing wire removal Date/Start Time: 07/11/2019 3:41 PM Performed by: Marlon Millan (Pa) Authorized by: Marlon Millan (Pa) Pre-procedure Details: Personnel directly involved with the procedure wore the appropriate PPE. The area was prepped with chlorhexidine (Chloroprep) and allowed to dry. Medications: Procedure Details: Atrial and ventricular pacing wires removed with tips intact. Minimal sero/ sang drainage from ventricular lead site. Dressing applied. AGUSTO Akins notified of post procedure orders. Post-procedure Details: Patient tolerated the procedure well with no immediate complications Estimated Blood Loss: None Specimens Sent: None SIGNATURE: Marlon Millan PA-C PATIENT NAME: Elias Shah DATE: July 11, 2019 TIME: 3:40 PM PAGER/CONTACT #: Chief Complaint and Reason for Visit Chief Complaint LABS 6 MO - LABS PRIOR 6 M FU Reason for Visit Iron deficiency anem ia due to chronic blood loss MGUS (monoclonal gammopathy of unknown significance) Atherosclerosis of coronary artery without angina pectoris Essential (primary) hypertension Hyperlipidemia Paroxysmal atrial fibrillation S/P aortic valve replacement with bioprosthetic valve Chief Complaint LABWORK Chief Complaint LABWORK E-ORDER 6 MO - LABS 1 WK PRIOR Reason for Visit Iron deficiency anem ia due to chronic blood loss MGUS (monoclonal gammopathy of unknown significance) Chief Complaint LABWORK E-ORDER 6 MO - LABS 1 WK PRIOR 9 M FU ASHD, EVAL VALVE REPLACEMENT Reason for Visit Iron deficiency anem ia due to chronic blood loss MGUS (monoclonal gammopathy of unknown significance) Atherosclerosis of coronary artery without angina pectoris Essential (primary) hypertension Hyperlipidemia Paroxysmal atrial fibrillation S/P aortic valve replacement with bioprosthetic valve Chief Complaint E-ORDER 6 MO - LABS 1 WK PRIOR 9 M FU ASHD, EVAL VALVE REPLACEMENT CHILLS WITH OUT FEVER Reason for Visit Iron deficiency anem ia due to chronic blood loss MGUS (monoclonal gammopathy of unknown significance) Atherosclerosis of coronary artery without angina pectoris Essential (primary) hypertension Hyperlipidemia Paroxysmal atrial fibrillation S/P aortic valve replacement with bioprosthetic valve Chief Complaint CHILLS WITH OUT FEVE R Chief Complaint 6 MO F/U (PREV [place] N PT) 1YR LABS PRIOR Reason for Visit History of aortic va lve replacement with bioprosthetic valve Coronary artery disease Essential (primary) hypertension GERD with esophagitis Hyperlipidemia History of coronary artery bypass surgery Iron deficiency anemia due to chronic blood loss MGUS (monoclonal gammopathy of unknown significance) Chief Complaint 1YR LABS PRIOR Reason for Visit Iron deficiency anem ia due to chronic blood loss MGUS (monoclonal gammopathy of unknown significance) Chief Complaint Admit Date LABS May 04, 2025 3:34 pm 1YR LABS PRIOR May 22, 2025 10:1 7am Reason for Visit Admit Date Iron deficiency anemia due to chronic bl ood loss May 22, 2025 10:17am 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) May 22, 2025 10:17am Chief Complaint Admit Date LABS May 04, 2025 3:34 pm 1YR LABS PRIOR May 22, 2025 10:1 7am Overdue 1 Y FU June 22, 2025 9:53 am Reason for Visit Admit Date Iron deficiency anemia due to chronic bl ood loss May 22, 2025 10:17am 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) May 22, 2025 10:17am History of aortic valve replacement with bioprosthetic valve June 22, 2025 9:53am Coronary artery disease June 22, 2025 9:53am Essential (primary) hypertension June 222024 9:53am Hyperlipidemia June 22, 2025 9:53 am History of coronary artery bypass surger y June 22, 2025 9:53am Chief Complaint Admit Date LABS May 04, 2025 3:34 pm 1YR LABS PRIOR May 22, 2025 10:1 7am Overdue 1 Y FU June 22, 2025 9:53 am Localized edema July 27, 2025 12:52pm 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 July 27, 2025 2:21pm Chief Complaint Admit Date LABS May 04, 2025 3:34 pm 1YR LABS PRIOR May 22, 2025 10:1 7am Overdue 1 Y FU June 22, 2025 9:53 am Localized edema July 27, 2025 12:52pm 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 July 27, 2025 2:21pm Pre op August 01, 2025 2:41pm Additional Source Comments (unrecognized sect ion and content) No Status Records FoundNo Status Records FoundNo Status Records Found INFORMATION SOURCE (unrecogn ized section and content) DATE CREATED AUTHOR 01/11/2019 [facility] DATE CREATED AUTHOR AUTHOR'S ORGANIZ ATION 09/19/2019 [facility] DATE CREATED AUTHOR AUTHOR'S ORGANIZ ATION 08/01/2025 [facility] Goals (unrecognized section and content) Goals may be documented in a n alternate sectionGoals may be documented in an alternate sectionGoals may be documented in an alternate sectionGoals may be documented in an alternate sectionGoals may be documented in an alternate sectionGoals may be documented in an alternate sectionGoals may be documented in an alternate sectionGoals may be documented in an alternate sectionGoals may be documented in an alternate sectionGoals may be documented in an alternate sectionGoals may be documented in an alternate sectionGoals may be documented in an alternate sectionGoals may be documented in an alternate sectionGoals may be documented in an alternate section Care Teams (unrecognized sec tion and content) Team Status: Active Member Role Status Dates Dr. Mal Main MD Family Provider Active Husam BACON MD Primary Care Provider Active Team Status: Inactive Member Role Status Dates Husam BACON MD Primary Care Provider Active Dr. Marcy Roque DO Attending Provider Active Team Status: Inactive Member Role Status Dates Husam BACON MD Primary Care Provider Active Dr. Husam Khan MD Attending Provider, Referring Pr ovider Active Team Status: Inactive Member Role Status Dates Husam BACON MD Primary Care Provider Active Dr. Husam Khan MD Attending Provider Active Team Status: Active Member Role Status Dates Dr. Mal Main MD Family Provider Active Dr. Husam Khan MD Primary Care Provider Active Team Status: Inactive Member Role Status Dates Husam BACON MD Primary Care Provider, Referring Provider Active Dr. Scott Lobo MD Attending Provider Active Team Status: Inactive Member Role Status Dates Dr. Geoffrey Garza MD Attending Provider Active Dr. Husam Khan MD Primary Care Provider, Referring Provider Active Team Status: Inactive Member Role Status Dates Dr. Husam Khan MD Primary Care Provider Active Dr. Geoffrey Garza MD Attending Provider, Referrin g Provider Active Team Status: Inactive Member Role Status Dates Dr. Husam Khan MD Primary Care Provider Active Dr. Marcy Roque DO Attending Provider Active Team Status: Inactive Member Role Status Dates Dr. Husam Khan MD Primary Care Provider Active Start: December 29, 2024 End: December 29, 2024 Dr. Husam Khan MD Attending Provider Active Start: December 29, 2024 End: December 29, 2024 Team Status: Active Member Role/Relationship Status Dates Dr. Husam Khan MD Primary Care Provider Active Team Status: Active Member Role/Relationship Status Dates Dr. Geoffrey Garza MD Attending Provider Active Start: May 04, 2025 Dr. Geoffrey Garza MD Referring Provider Active Start: May 04, 2025 Dr. Husam Khan MD Primary Care Provider Active Start: May 04, 2025 Team Status: Inactive Member Role/Relationship Status Dates Dr. Husam Khan MD Primary Care Provider Active Start: May 22, 2025 End: May 22, 2025 Dr. Husam Khan MD Referring Provider Active Start: May 22, 2025 End: May 22, 2025 Dr. Geoffrey Garza MD Attending Provider Active Start: May 22, 2025 End: May 22, 2025 Team Status: Inactive Member Role/Relationship Status Dates Dr. Husam Khan MD Primary Care Provider Active Start: June 22, 2025 End: June 22, 2025 Dr. Husam Khan MD Referring Provider Active Start: June 22, 2025 End: June 22, 2025 La MCCRAY, [place] Attending Provider Active Start: June 22, 2025 End: June 22, 2025 Team Status: Active Member Role/Relationship Status Dates Dr. Husam Khan MD Primary Care Provider Active Start: July 26, 2025 Dr. Husam Khan MD Attending Provider Active Start: July 26, 2025 Team Status: Active Member Role/Relationship Status Dates Dr. Husam Khan MD Primary Care Provider Active Start: July 27, 2025 Dr. Husam Khan MD Attending Provider Active Start: July 27, 2025 Dr. Husam Khan MD Referring Provider Active Start: July 27, 2025 Team Status: Inactive Member Role/Relationship Status Dates Dr. Husam Khan MD Primary Care Provider Active Start: July 27, 2025 End: July 27, 2025 Dr. Ilana Medrano DO Emergency Provider Active Start: July 27, 2025 End: July 27, 2025 Team Status: Active Member Role/Relationship Status Dates Dr. Husam hKan MD Primary Care Provider Active Start: July 27, 2025 Dr. Channing Mckeon MD Attending Provider Active S tart: July 27, 2025 Team Status: Inactive Member Role/Relationship Status Dates Dr. Husam Khan MD Primary Care Provider Active Start: July 27, 2025 End: July 27, 2025 Dr. Ilana Medrano DO Attending Provider Active Start: July 27, 2025 End: July 27, 2025 Dr. Ilana Medrano DO Emergency Provider Active Start: July 27, 2025 End: July 27, 2025 Team Status: Inactive Member Role/Relationship Status Dates Dr. Husam Khan MD Primary Care Provider Active Start: August 01, 2025 End: August 01, 2025 Dr. Husam Khan MD Referring Provider Active Start: August 01, 2025 End: August 01, 2025 Dr. Channing Mckeon MD Attending Provider Active S tart: August 01, 2025 End: August 01, 2025 FOR RECORDS PERTAINING TO PATIENTS WHO ARE OR HAVE BEEN ENROLLED IN A CHEMICAL DEPENDENCY/SUBSTANCEABUSE PROGRAM, SOME INFORMATION MAY BE OMITTED. This clinical summary was aggregated from multiple sources. Caution should be exercised in using it in the provision of clinical care. This summary normalizes information from multiple sources, and as a consequence, information in this document may materially change the coding, format and clinical context of patient data. In addition, data may be omitted in some cases. CLINICAL DECISIONS SHOULD BE BASED ON THE PRIMARY CLINICAL RECORDS. [email or web address] provides no warranty or guarantee of the accuracy or completeness of information in this document.
--- NOTE | 2025-08-02 18:07 | PCM.OPRPT ---
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 Post-Operative Diagnosis: Same Surgery/Procedure Performed: Aortogram, right lower extremity angiogram Intravascular ultra sound right SFA/popliteal artery Angioplasty and covered stent right popliteal artery to exclude pseudoaneurysm sample examiner: No Type of Anesthesia: Local and Sedation,Conscious Procedure Start Time: 08:20 Procedure Stop Time: 09:40 Select all DRAINS/GRAFTS/IMPLANTS that apply: Implanted device Implanted device details: 6 x 10 [place] Vi[place]ahn, 7 x 10 [place] [employer] Estimated Blood Loss: 7 Specimen collected: No Description of surgery: HPI: Patient is an 85-year-old male who suffered a mechanical fall with aggressive flexion of his right knee and subsequently developed pain and fullness in the popliteal fossa. He had a venous duplex which incidentally revealed a large right popliteal pseudoaneurysm [address] angiography confirmed pseudoaneurysm with wide base with significant atherosclerotic burden proximal and distal within the popliteal artery. The distal popliteal artery appeared to be an adequate landing zone and there was some element of tibial occlusive disease with calcification though limited evaluation could be performed based on the CT scan. He is taken now for angiogram with right lower extremity runoff with plans for endovascular exclusion of the pseudoaneurysm if there is adequate tibial outflow. Description of procedure: Upon obtaining informed consent and verification correct patient procedure site the patient was taken to the Field Installation Technician he was positioned prepped and draped in usual sterile fashion. Timeout was performed, sedation was ministered with Versed and fentanyl. Skin overlying the left common femoral artery was anesthetized with 1% lidocaine the vessel accessed under ultrasound guidance with a micropuncture needle wire. This then exchanged for micropuncture sheath routine injection iliofemoral angiograms performed revealing satisfactory positioning with no extravasation or dissection. Through the micropuncture sheath a Bentson wire was advanced and the micropuncture sheath exchanged for a short 7 Jordanian sheath. Through the 7 Jordanian sheath an Omni Flush catheter was advanced into the abdominal aorta and a digital subtraction angiogram pelvic angiogram was performed. This revealed normal caliber abdominal aorta with moderate diffuse atherosclerosis but no significant stenosis. The left common iliac artery was dilated to 2.5 cm with moderate diffuse calcified atherosclerosis. The left external iliac artery was normal caliber with no significant atherosclerosis or stenosis. The right common iliac artery was similarly dilated to 2.5 cm with moderate diffuse calcified atherosclerosis. The right external iliac artery was patent with no significant atherosclerosis or stenosis. Utilizing a glide advantage wire and the Omni Flush catheter we navigated to the contralateral iliac system advancing the catheter into the distal external iliac artery. From this position subtraction angiography was performed sequentially the right lower extremity which revealed common femoral artery patent with mild atherosclerosis but no stenosis. The profundofemoral artery was large caliber vessel with no significant atherosclerosis or stenosis. The superficial femoral artery had scattered diffuse calcified atherosclerosis but no significant stenosis. The above-knee popliteal artery had moderate calcified atherosclerosis proximally with more severe bulky calcified atherosclerosis with stenosis distally above the knee. In the P2 segment there was a large pseudoaneurysm with significant active flow chamber with no free extravasation. The P3 popliteal artery had moderate calcified atherosclerosis proximally with return to normal contour and caliber distal. The anterior tibial artery appeared occluded at the origin with reconstitution distally. The tibioperoneal trunk had moderate calcified atherosclerosis with approximately 30% stenosis and then a large caliber peroneal artery runoff through the lower leg. The posterior tibial artery had significant atherosclerosis and was small caliber and diffusely diseased. Is felt that the tibioperoneal trunk and peroneal artery had sufficient outflow to support stent graft treatment of the pseudoaneurysm. The glide advantage wire was then readvanced and positioned in the distal superficial femoral artery. The short 7 Jordanian sheath and exchanged for a long 7 Jordanian sheath advanced into position the proximal superficial femoral artery. The patient was then heparinized allowed to circulate for 3 minutes with subsequent heparin dosing based on ACT results. A straight quick cross catheter was then advanced over the glide advantage wire which was then exchanged for a command 18 wire. This was then utilized to traverse the popliteal artery at the area of the pseudoaneurysm advancing into the distal popliteal artery. Catheter was then advanced and the wire withdrawn followed by subtraction angiography confirming position within the true lumen of the distal popliteal artery beyond the area of injury. The command 18 wire was then readvanced and the catheter withdrawn. Intravascular sound probe was then advanced recorded pullback performed of the popliteal artery from the distal normal segment back to Joe's canal. This revealed moderate calcified atherosclerosis of the proximal P3 segment with satisfactory landing zone distal there was relatively free of any significant atherosclerosis or stenosis. There was a large segment of totally disrupted popliteal artery communicating with the pseudoaneurysm. Proximal to this there was severe calcified atherosclerosis with multiple tandem areas of stenosis to the mid P1 segment. It was felt that to adequately treat the pseudoaneurysm and provide adequate stent inflow we had to extend our stent to the more normal segment of the proximal popliteal artery. Reference size vessels were obtained and a 6 mm x 10 [place] Viabahn covered stent was then brought in the field prep for electromechanical equipment tester instructions. The intravascular sound probe was withdrawn and the stent advanced over the wire and positioned with adequate overlap into the normal vessel in the distal popliteal artery and deployed. This was then postdilated with a 6 mm Pedrito balloon inflated to nominal and then deflated and withdrawn. Next a 7mm x 10 [place] Viabahn covered stent was advanced in position with adequate overlap and the initially placed stent and coverage back to the normal luminal contour proximal popliteal artery. This was then deployed and then postdilated with a 6 mm Pedrito balloon followed by 10 mm x 2 pedrito for the proximal stent which had residual stenosis. Completion angiography revealed brisk contrast transit through the stented segment with no further filling of contrast into the pseudoaneurysm. There is no evidence of extravasation or dissection and there is preserved runoff into the tibial vessels. The long 7 Jordanian sheath and exchanged for a short 7 Jordanian sheath and a minx closure device deployed followed by 5 minutes of manual pressure. The patient was then taken to recovery with plan discharge to home. Surgical Findings: See above Complications Complications: No
== END 2025-08-02 14:09 | disposition home or self-care (01) ==
PROVIDERS: PCP Family Medicine Geriatric Medicine; Referring Provider Surgery Trauma Surgery; Visit Provider Surgery Trauma Surgery
DX: I72.4 Aneurysm of artery of lower extremity (principal); Z79.899 Other long term (current) drug therapy; Z79.02 Long term (current) use of antithrombotics/antiplatelets; K21.9 Gastro-esophageal reflux disease without esophagitis; E78.5 Hyperlipidemia, unspecified; I10 Essential (primary) hypertension; Z79.891 Long term (current) use of opiate analgesic; I70.0 Atherosclerosis of aorta; I70.202 Unspecified atherosclerosis of native arteries of extremities, left leg
CPT/HCPCS: 36200; 36245; 37226; 37252; 75625; 75710; 99152; 99153; C1725; C1753; C1760; C1769; C1874; C1894; Q9967; C1887

== ENCOUNTER 2025-08-04 11:42 | Inpatient (IN) | payer MEDICARE, OTHER, SELFPAY ==
[2025-08-04] VITALS (15 sets, daily range): BP systolic 102–142; BP diastolic 62–82; PULSE 86–95; RESP 15–21; TEMP 36.6–36.9; O2SAT 95–98; BMI 29.7
--- NOTE | 2025-08-04 11:55 | EKG12_ITS ---
Test Reason : Blood Pressure : */* mmHG Vent. Rate : 94 BPM Atrial Rate : * BPM P-R Int : * ms QRS Dur : 148 ms QT Int : 412 ms P-R-T Axes : * -58 93 degrees QTcB Int : 515 ms Atrial fibrillation Left axis deviation Left bundle branch block Abnormal ECG Confirmed by Henrique Santana ([id number]), multimedia editor DONNIE SALINAS ([id number]) on 08/07/2025 1:08:31 PM Referred By: KD Confirmed By: Henrique Santana
--- NOTE | 2025-08-04 12:09 | EDS_ITS ---
HPI History of Present Illness Chief Complaint: Weakness Informant: patient and spouse/S.O. Narrative Narrative: 85-year-old male presenting for generalized weakness and trouble standing or walking due to pain in the right popliteal fossa where he had an aneurysm fixed by vascular surgery 2 days ago according to . She also suggest she is looking for respite care. Has been having trouble caring for him anymore, especially the condition he has been in for the past 2 days. She has been looking to getting him into a detention facility recently, but his acute worsening since his surgery have limited their ability to do that quickly as an outpatient. He has had several near falls and has been very weak. 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 History of aortic stenosis Vitamin D deficiency Allergic rhinitis BPH (benign prostatic hyperplasia) Hematuria Debility Aortic stenosis Bowel obstruction Mitral valve annular calcification Atrial fibrillation with rapid ventricular response Declining functional status Cognitive deficits Vitamin D deficiency Acute metabolic encephalopathy Acute kidney injury Prolonged QT interval Left bundle branch block Anemia Hyperlipidemia Essential (primary) hypertension Home Medications ?Medication ?Instructions ?Recorded ?Last Taken ?Type tamsulosin 0.4 mg capsule 0.4 mg PO QHS urine flow Unknown History famotidine 40 mg tablet (Pepcid) 40 mg PO DAILY Unknown History citalopram 10 mg tablet 10 mg PO DAILY 02/18/21 Unkn own History donepezil 10 mg tablet 10 mg PO DAILY 02/18/21 Unkn own History quetiapine 25 mg tablet 25 mg PO BID 02/18/21 Unknow n History cyanocobalamin (vitamin B-12) 1,000 mcg PO DAILY 07/15 Unknown History 1,000 mcg capsule ascorbate calcium (vitamin C) 500 500 mg PO DAILY 12/25 12/14 Unknown History mg tablet carvedilol 3.125 mg tablet 3.125 mg PO BID #180 tabs 0 03/28/24 Unknown Rx hydralazine 50 mg tablet 50 mg PO TID #270 TABLETS 08/02/25 Rx amlodipine 5 mg tablet 5 mg PO QHS #90 tabs 5 08/02/25 Rx vit C 250 mg-vit E 90 mg-zinc 40 1 tab PO BID 06/22/25 Unknown History mg-copper 1 [id number] capsule (PreserVision AREDS-2) rosuvastatin 20 mg tablet (Crestor) 10 mg (1/2 x 20 mg ) PO DAILY #30 07/14/25 Unknown Rx tabs albuterol sulfate 90 mcg/actuation 2 puff inhalation Q 6H PRN 08/01/25 Unknown History aerosol inhaler shortness of breath or wheez ing clopidogrel 75 mg tablet 75 mg PO DAILY #90 tabs 07/24 12/17 Unknown Rx losartan 50 mg tablet 50 mg PO DAILY #90 tabs 07/24 12/17 Unknown Rx Allergy/AdvReac Type Severity Reaction Status Date / Time atorvastatin AdvReac Intermediate Myalgias Verified 07/27/25 14:23 Family History Father Cancer Lung cancer Sister Cancer Breast cancer Pancreas cancer Surgical History History of coronary artery bypass surgery (~07/04/19) History of aortic valve replacement with bioprosthetic valve (~07/04/19) History of right and left heart catheterization (03/02/19) S/P partial colectomy Umbilical hernia, incarcerated (12/04/18) Social History household members: family housing: house current occupational status: retired Smoking Status: Former smoker alcohol intake: never substance use type: does not use
--- NOTE | 2025-08-04 12:09 | EX.ED.DYSGE1 ---
HPI History of Present Illness Chief Complaint: Weakness Informant: patient and spouse/S.O. Narrative Narrative: 85-year-old male presenting for generalized weakness and trouble standing or walking due to pain in the right popliteal fossa where he had an aneurysm fixed by vascular surgery 2 days ago according to . She also suggest she is looking for respite care. Has been having trouble caring for him anymore, especially the condition he has been in for the past 2 days. She has been looking to getting him into a prison facility recently, but his acute worsening since his surgery have limited their ability to do that quickly as an outpatient. He has had several near falls and has been very weak. 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 History of aortic stenosis Vitamin D deficiency Allergic rhinitis BPH (benign prostatic hyperplasia) Hematuria Debility Aortic stenosis Bowel obstruction Mitral valve annular calcification Atrial fibrillation with rapid ventricular response Declining functional status Cognitive deficits Vitamin D deficiency Acute metabolic encephalopathy Acute kidney injury Prolonged QT interval Left bundle branch block Anemia Hyperlipidemia Essential (primary) hypertension Home Medications ?Medication ?Instructions ?Recorded ?Last Taken ?Type tamsulosin 0.4 mg capsule 0.4 mg PO QHS urine flow 08/20/19 Unknown History famotidine 40 mg tablet (Pepcid) 40 mg PO DAILY 08/10/20 Unknown History citalopram 10 mg tablet 10 mg PO DAILY 02/18/21 Unknown History donepezil 10 mg tablet 10 mg PO DAILY 02/18/21 Unknown History quetiapine 25 mg tablet 25 mg PO BID 02/18/21 Unknown History cyanocobalamin (vitamin B-12) 1,000 mcg PO DAILY 07/15/21 Unknown History 1,000 mcg capsule ascorbate calcium (vitamin C) 500 500 mg PO DAILY 01/13/22 Unknown History mg tablet carvedilol 3.125 mg tablet 3.125 mg PO BID #180 tabs 03/28/24 Unknown Rx hydralazine 50 mg tablet 50 mg PO TID #270 TABLETS 04/04/25 08/02/25 Rx amlodipine 5 mg tablet 5 mg PO QHS #90 tabs 06/22/25 08/02/25 Rx vit C 250 mg-vit E 90 mg-zinc 40 1 tab PO BID 06/22/25 Unknown History mg-copper 1 [id number] capsule (PreserVision AREDS-2) rosuvastatin 20 mg tablet (Crestor) 10 mg (1/2 x 20 mg) PO DAILY #30 07/14/25 Unknown Rx tabs albuterol sulfate 90 mcg/actuation 2 puff inhalation Q6H PRN 08/01/25 Unknown History aerosol inhaler shortness of breath or wheezing clopidogrel 75 mg tablet 75 mg PO DAILY #90 tabs 08/03/25 Unknown Rx losartan 50 mg tablet 50 mg PO DAILY #90 tabs 08/03/25 Unknown Rx Allergy/AdvReac Type Severity Reaction Status Date / Time atorvastatin AdvReac Intermediate Myalgias Verified 07/27/25 14:23 Family History Father Cancer Lung cancer Sister Cancer Breast cancer Pancreas cancer Surgical History History of coronary artery bypass surgery (~07/04/19) History of aortic valve replacement with bioprosthetic valve (~07/04/19) History of right and left heart catheterization (03/02/19) S/P partial colectomy Umbilical hernia, incarcerated (12/04/18) Social History household members: family housing: house current occupational status: retired Smoking Status: Former smoker alcohol intake: never substance use type: does not use caffeine: Yes Type: carbonated beverages and coffee eating out: 1-3 times/week adán/judaism: Restorationism seatbelt use: always do you feel safe at home: Yes ROS ROS ED Constitutional Constitutional ED: Reports weakness; Denies chills or fever(s) Eyes Eyes: Denies change in vision or diplopia ENT ENT ED: Denies rhinorrhea or sore throat Cardiovascular Cardiovascular: Denies chest pain or palpitations Respiratory/Chest Respiratory/Chest: Denies cough or dyspnea Gastrointestinal Gastrointestinal: Denies abdominal pain, diarrhea, nausea or vomiting Genitourinary Genitourinary ED: Denies dysuria or hematuria Musculoskeletal Musculoskeletal: Reports as per HPI and extremity pain; Denies back pain or neck pain Integumentary Denies abscess or rash Neurologic Neurologic: Denies headache(s), paresthesias or weakness Psychiatric Psychiatric: Denies anxiety or suicidal thoughts EXAM Physical Exam Const Vital Signs: 08/04/25 11:43 08/04/25 11:47 08/04/25 13:05 Temperature 98.5 F Temperature Source Oral Pulse Rate 95 89 Respiratory Rate 15 21 H Respiratory Effort Normal Non-Labored Respiratory Pattern Normal Blood Pressure 107/62 102/67 Blood Pressure Mean 77 79 Pulse Ox 98 96 Oxygen Delivery Method Room Air 08/04/25 13:15 08/04/25 13:30 08/04/25 13:45 Temperature Temperature Source Pulse Rate 94 87 93 Respiratory Rate 20 H 20 H 20 H Respiratory Effort Respiratory Pattern Blood Pressure 108/64 106/67 119/71 Blood Pressure Mean 79 80 86 Pulse Ox 96 97 96 Oxygen Delivery Method 08/04/25 14:00 08/04/25 14:15 08/04/25 14:29 Temperature Temperature Source Pulse Rate 86 93 92 Respiratory Rate 19 H 18 19 H Respiratory Effort Respiratory Pattern Blood Pressure 110/68 115/64 115/64 Blood Pressure Mean 80 78 81 Pulse Ox 95 95 96 Oxygen Delivery Method 08/04/25 14:30 08/04/25 14:45 08/04/25 15:00 Temperature Temperature Source Pulse Rate 94 94 Respiratory Rate 18 18 Respiratory Effort Respiratory Pattern Blood Pressure 107/74 117/69 119/73 Blood Pressure Mean 84 83 89 Pulse Ox 96 95 Oxygen Delivery Method Positive well nourished and well developed General Appearance ED: well developed and NAD HEENT Reports moist mucous membranes normocephalic and atraumatic Eyes PERRL and EOMs intact bilaterally Neck full ROM and supple Resp normal respiratory effort and clear to auscultation bilaterally Cardio Rhythm: abnormal rhythm irregularly irregular Heart Sounds: murmur systolic II/ crescendo-decrescendo GI non-tender and non-distended Auscultation: normoactive bowel sounds Palpation: soft Back/Spine no CVA tenderness General Back: other FROM Extremity normal to inspection Extremity Narrative: Mild tenderness in right popliteal fossa which is normal-appearing. There is a left groin puncture site, there is no drainage or signs of infection, there is a palpable femoral pulse there. Thready but palpable pulses both feet dorsalis pedis can brisk cap refill both feet/toes. General Extremety ED: Negative for edema, pulses abnormal or tenderness General Extremity: Negative for edema or pulses abnormal Neuro oriented x3, CN's II-XII intact bilaterally and no sensory deficits noted Sensorium / Orientation: awake and alert Motor Exam: general weakness Psych mental status grossly normal Skin no rashes or lesions noted and no wounds MDM MDM MDM Narrative Medical decision making narrative: It seems the patient had a fall and CTA showing 7 cm pseudoaneurysm in the right popliteal artery, suggesting this was acute due to an injury and vascular stented it. He is on aspirin and clopidogrel no anticoagulants, appears to be perfusing well, but not tolerating the pain and very weak overall. Hemoglobin is a little lower than it was a week ago at 8.9, but not markedly so when he was at 9.3 before. I discussed all that with vascular Dr. Mckeon, he states as long as the patient is perfusing well, this should not be an issue with the procedure which I agree with, he states that there was quite a bit of hematoma there and so the pain is probably explained by that, he does not appear to have new purpura/ecchymosis to suggest active bleeding on my exam. Vascular recommends continuing aspirin and clopidogrel for now. Labs do show acute renal insufficiency, he will be given some IV fluids. His vital signs are normal. He does have a bit of a leukocytosis, but he does not appear to be or have any evidence on ancillaries of sepsis. I did do a 1 view chest x-ray which on my interpretation shows no evidence of pneumonia radiology in agreement. He has good perfusion to his right foot. Still waiting for urinalysis, is getting IV fluids so we can get some urine from him. In the meantime discussed with hospitalist for admission. History & Record Review Additional record(s) reviewed:: Prior outpatient record (Vascular surgery office visit) Lab Data Attestation: I reviewed the patient's lab results. Labs: Laboratory Results - last 24 hr 08/04/25 12:19 WBC 14.6 H RBC 3.48 L Hgb 8.9 L Hct 28.7 L MCV 82.5 MCH 25.6 L MCHC 31.0 L RDW Std Deviation 49.2 H RDW Coeff of Genesis 16.8 H Plt Count 234 MPV 9.0 Immature Gran % (Auto) 2.400 H Neut % (Auto) 78.2 H Lymph % (Auto) 6.6 L [place] % (Auto) 12.6 H Eos % (Auto) 0.1 Baso % (Auto) 0.1 Absolute Neuts (auto) 11.4 H Absolute Lymphs (auto) 0.96 Nucleated RBC % 0 Differential Comment COMMENT Sodium 137 Potassium 4.3 Chloride 101 Carbon Dioxide 24.4 Anion Gap 11 BUN 39 H Creatinine 1.53 H Estim Creat Clear Calc 37.98 L Est GFR (MDRD) Non-Af 44 L BUN/Creatinine Ratio 25.4 H Glucose 158 H Lactic Acid 2.0 Calcium 8.4 Total Bilirubin 0.30 AST 114 H ALT 83 H Alkaline Phosphatase 112 Total Protein 6.5 Albumin 2.7 L Globulin 3.8 Albumin/Globulin Ratio 0.7 L Radiography Diagnostic Testing: Clinical Impression(s) from Imaging Studies Chest X-Ray 08/04/25 12:25 IMPRESSION: No Acute Findings. Stable examination. Reading Location: [id number] Rhythm Strip Rhythm Strip: A-fib Rate: 95 Ectopy: None EKG Initial EKG: Attestation: I personally reviewed and interpreted this EKG as follows: Interpretation: No Acute Injury Pattern, Atrial Fibrillation and LBBB Prior EKG tracings: available for review Prior: Unchanged Management Discussion w/another healthcare provider: Hospitalist and Assessment Technician (Vascular) Discharge Plan Dx/Rx/DC Orders Clinical Impression: MAURO (acute kidney injury), Paroxysmal atrial fibrillation, Debility, Leg pain, right Disposition Disposition: Acute Care Hospital [facility]
[2025-08-04] MEDS: 0.9% Normal Saline (1000mL) 1,000 ML 150 ML IV ×2 (12:18→18:05)
--- NOTE | 2025-08-04 12:25 | RAD_ITS ---
PROCEDURE: CHEST 1 VIEW (PORTABLE) 08/04/2025 REASON FOR EXAM: WEAKNESS TECHNIQUE: Frontal view of the chest. COMPARISON: Prior study dated September 01, 2019. FINDINGS: Hardware: EKG electrodes are seen. Status post midline sternotomy. Mitral valve replacement. Heart: The heart is nonenlarged. Mitral valve replacement. Lungs: Stable elevation of the left hemidiaphragm. The lungs are clear. Bones: Degenerative changes are identified within the thoracic spine. Degenerative changes of the right shoulder. Other: RAD/Chest 1 View (Portable) IMPRESSION: No Acute Findings. Stable examination. Reading Location: [id number]
[2025-08-04 12:34] LABS: Hematocrit 28.7 % (40-54); Hemoglobin 8.9 g/dL (13.0-16.5); Immature Granulocytes Count 0.350 X10^3/uL (0.0-0.0); Mean Corp Hgb Conc 31.0 g/dL (32-36); Mean Corpuscular Volume 82.5 fL (80-94); Mean Platelet Vol. 9.0 fl (6.2-12.0); NRBC Flagged by Analyzer 0 % (0-5); POSITIVE DIFFERENTIAL YES; Platelet Count 234 K/mm3 (150-450); RBC Distribution Width CV 16.8 % (11.6-14.6); RBC Distribution Width SD 49.2 fl (35.1-43.9); Red Blood Count 3.48 M/mm3 (4.6-6.2); White Blood Count 14.6 K/mm3 (4.4-11.0)
[2025-08-04 12:35] LABS: Differential Indicated SCAN CRITERIA MET
[2025-08-04 13:01] LABS: AST(SGOT) 114 U/L (<=37); Alanine Aminotransfer ALT/SGPT 83 U/L (<=46); Albumin, Serum 2.7 g/dL (3.4-4.8); Alkaline Phosphatase 112 U/L (40-129); Anion Gap 11 (5-15); BUN 39 mg/dL (4-19); BUN/Creat Ratio 25.4 RATIO (10-20); Calcium,Total 8.4 mg/dL (7.6-11.0); Carbon Dioxide 24.4 mmol/L (21.0-32.0); Chloride 101 mmol/L (98-108); Estimated Creatinine Clearance 37.98 ml/min (50-250); Globulin 3.8 g/dL (2.2-4.2); Glucose 158 mg/dL (70-99); Potassium 4.3 mmol/L (3.3-5.1)
[2025-08-04 15:19] LABS: Mucous, Urine 0 SEEN /hpf (<or=2+)
--- NOTE | 2025-08-04 16:08 | PCM.HP.STD ---
HPI - General General Date of Admission: 08/04/25 Date of Service: 08/04/25 Chief Complaint: Weakness and difficulty with ambulation HPI Narrative ELIAS JAQUEZ, is a 85 M who presented to [facility] ED on 08/04/2025 with weakness and difficulty with ambulation. Patient lives at home with his . He had a procedure done with Dr. Mckeon on 08/02. 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 Mckeon performed an angioplasty with stent placement in the right popliteal artery. Left groin was the access site for the procedure. Patient was fine for discharge home postprocedure but notes that he has had ongoing pain behind the right knee since then and difficulty with ambulation. Also has not been eating or drinking well since then. In the ED he was mildly hypotensive to the 100s over 60s and borderline tachycardic to the 90s but otherwise stable on room air at rest. CBC with WBC count 14, hemoglobin 8.9 (hemoglobin 9.3 preoperatively). BMP with creatinine 1.53, (baseline around 1.1-1.2). Dr. Avila noted that on exam the left groin site appeared to be healing well with no signs of infection, and the right knee appeared normal with no signs of swelling or erythema. He then discussed with Dr. Mckeon who noted that the patient had good bit of hematoma from the pseudoaneurysm and this would explain the pain behind the knee currently. Noted no need for repeat imaging or other vascular surgery workup at this time. Hospitalist was contacted for admission. I saw the patient at bedside in the ED, was present. Patient was mildly fatigued appearing but otherwise sitting back comfortably in bed, conversing normally, in no acute distress. He had been given a dose of IV morphine 2 mg for the knee pain and stated this was mildly helpful for him. notes that patient has required SNF placement in the past and she does not feel like she is able to take care of him at home right now and would like SNF placement for him if possible. Patient is agreeable to this. Patient notes that he generally feels weak and debilitated, but he denies any other acute pain aside from behind the right knee. Denies any pain at the left groin incision site. No other acute concerns currently. Will be admitted for further management. 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 History of aortic stenosis Vitamin D deficiency Allergic rhinitis BPH (benign prostatic hyperplasia) Hematuria Debility Aortic stenosis Bowel obstruction Mitral valve annular calcification Atrial fibrillation with rapid ventricular response Declining functional status Cognitive deficits Vitamin D deficiency Acute metabolic encephalopathy Acute kidney injury Prolonged QT interval Left bundle branch block Anemia Hyperlipidemia Essential (primary) hypertension Home Medications ?Medication ?Instructions ?Recorded ?Last Taken ?Type tamsulosin 0.4 mg capsule 0.4 mg PO QHS urine flow 08/20/19 Unknown History famotidine 40 mg tablet (Pepcid) 40 mg PO DAILY 08/10/20 Unknown History citalopram 10 mg tablet 10 mg PO DAILY 02/18/21 Unknown History donepezil 10 mg tablet 10 mg PO DAILY 02/18/21 Unknown History quetiapine 25 mg tablet 25 mg PO BID 02/18/21 Unknown History cyanocobalamin (vitamin B-12) 1,000 mcg PO DAILY 07/15/21 Unknown History 1,000 mcg capsule ascorbate calcium (vitamin C) 500 500 mg PO DAILY 01/13/22 Unknown History mg tablet carvedilol 3.125 mg tablet 3.125 mg PO BID #180 tabs 03/28/24 Unknown Rx hydralazine 50 mg tablet 50 mg PO TID #270 TABLETS 04/04/25 08/02/25 Rx amlodipine 5 mg tablet 5 mg PO QHS #90 tabs 06/22/25 08/02/25 Rx vit C 250 mg-vit E 90 mg-zinc 40 1 tab PO BID 06/22/25 Unknown History mg-copper 1 [id number] capsule (PreserVision AREDS-2) rosuvastatin 20 mg tablet (Crestor) 10 mg (1/2 x 20 mg) PO DAILY #30 07/14/25 Unknown Rx tabs albuterol sulfate 90 mcg/actuation 2 puff inhalation Q6H PRN 08/01/25 Unknown History aerosol inhaler shortness of breath or wheezing clopidogrel 75 mg tablet 75 mg PO DAILY #90 tabs 08/03/25 Unknown Rx losartan 50 mg tablet 50 mg PO DAILY #90 tabs 08/03/25 Unknown Rx Allergy/AdvReac Type Severity Reaction Status Date / Time atorvastatin AdvReac Intermediate Myalgias Verified 07/27/25 14:23 Family History Father Cancer Lung cancer Sister Cancer Breast cancer Pancreas cancer Surgical History History of coronary artery bypass surgery (~07/04/19) History of aortic valve replacement with bioprosthetic valve (~07/04/19) History of right and left heart catheterization (03/02/19) S/P partial colectomy Umbilical hernia, incarcerated (12/04/18) Social History household members: family housing: house current occupational status: retired Smoking Status: Former smoker alcohol intake: never substance use type: does not use caffeine: Yes Type: carbonated beverages and coffee eating out: 1-3 times/week adán/faith: Gnosticism seatbelt use: always do you feel safe at home: Yes ROS Constitutional Constitutional: Reports fatigue and weakness; Denies chills or fever(s) Cardiovascular Cardiovascular: Denies chest pain Respiratory/Chest Respiratory/Chest: Denies shortness of breath at rest Gastrointestinal Gastrointestinal: Denies abdominal pain Musculoskeletal Musculoskeletal: Reports other Details: Pain behind the right knee noted ; Denies arthralgias or myalgias Neurologic Neurologic: Denies dizziness, focal weakness, headache(s), numbness or tingling Vital Signs Vital Signs Vital Signs: 08/04/25 11:43 08/04/25 11:47 08/04/25 13:05 Temperature 98.5 F Temperature Source Oral Pulse Rate 95 89 Respiratory Rate 15 21 H Respiratory Effort Normal Non-Labored Respiratory Pattern Normal Blood Pressure 107/62 102/67 Blood Pressure Mean 77 79 Pulse Ox 98 96 Oxygen Delivery Method Room Air 08/04/25 13:15 08/04/25 13:30 08/04/25 13:45 Temperature Temperature Source Pulse Rate 94 87 93 Respiratory Rate 20 H 20 H 20 H Respiratory Effort Respiratory Pattern Blood Pressure 108/64 106/67 119/71 Blood Pressure Mean 79 80 86 Pulse Ox 96 97 96 Oxygen Delivery Method 08/04/25 14:00 08/04/25 14:15 08/04/25 14:29 Temperature Temperature Source Pulse Rate 86 93 92 Respiratory Rate 19 H 18 19 H Respiratory Effort Respiratory Pattern Blood Pressure 110/68 115/64 115/64 Blood Pressure Mean 80 78 81 Pulse Ox 95 95 96 Oxygen Delivery Method 08/04/25 14:30 08/04/25 14:45 08/04/25 15:00 Temperature Temperature Source Pulse Rate 94 94 Respiratory Rate 18 18 Respiratory Effort Respiratory Pattern Blood Pressure 107/74 117/69 119/73 Blood Pressure Mean 84 83 89 Pulse Ox 96 95 Oxygen Delivery Method Weight Weight: 91.3 kg Body Mass Index (BMI) 29.7 Physical Exam Const alert, oriented x3 and no apparent distress Constitutional Narrative: Elderly male, overweight, fatigued appearing, otherwise laying back fairly comfortably in bed, conversing normally, in no acute distress. General Appearance: cooperative and comfortable HEENT normocephalic, head/scalp atraumatic, hearing grossly normal bilaterally, nasal mucous membranes and turbinates normal and moist oral mucous membranes Eyes PERRL, EOMs intact bilaterally and conjunctivae normal Neck full ROM Chest inspection of chest normal Resp normal respiratory effort, normal air movement, no use of accessory muscles and clear to auscultation bilaterally Cardio no murmurs and peripheral pulses 2+ throughout Cardio Narrative: A-fib, rate controlled. GI normal to inspection, nondistended, normoactive bowel sounds, soft to palpation, non-tender and non-distended Back/Spine normal ROM Extremity Extremity Narrative: Left groin access site with no swelling, erythema or tenderness to palpation noted. Area behind the right knee mildly tender to palpation but no gross visual changes noted. Skin no rashes or lesions noted Neuro moves all extremities and no focal motor deficits Speech: speech normal Psych mental status grossly normal Results Lab / Micro Data 08/04/25 12:19 08/04/25 12:19 Labs: Laboratory Results - last 24 hr 08/04/25 12:19: WBC 14.6 H, RBC 3.48 L, Hgb 8.9 L, Hct 28.7 L, MCV 82.5, MCH 25.6 L, MCHC 31.0 L, RDW Std Deviation 49.2 H, RDW Coeff of Genesis 16.8 H, Plt Count 234, MPV 9.0, Immature Gran % (Auto) 2.400 H, Neut % (Auto) 78.2 H, Lymph % (Auto) 6.6 L, [place] % (Auto) 12.6 H, Eos % (Auto) 0.1, Baso % (Auto) 0.1, Absolute Neuts (auto) 11.4 H, Absolute Lymphs (auto) 0.96, Nucleated RBC % 0, Differential Comment COMMENT, Sodium 137, Potassium 4.3, Chloride 101, Carbon Dioxide 24.4, Anion Gap 11, BUN 39 H, Creatinine 1.53 H, Estim Creat Clear Calc 37.98 L, Est GFR (MDRD) Non-Af 44 L, BUN/Creatinine Ratio 25.4 H, Glucose 158 H, Lactic Acid 2.0, Calcium 8.4, Total Bilirubin 0.30, AST 114 H, ALT 83 H, Alkaline Phosphatase 112, Total Protein 6.5, Albumin 2.7 L, Globulin 3.8, Albumin/Globulin Ratio 0.7 L Rhythm Strip Rhythm Strip: A-fib Rate: 95 Ectopy: None Imaging Radiology Impression Chest X-Ray 08/04/25 12:25 IMPRESSION: No Acute Findings. Stable examination. Reading Location: [id number] Assessment & Plan Assessment/Plan (1) Debility: (2) MAURO (acute kidney injury): (3) Leg pain, right: PLAN: Plan Patient is an 85-year-old male who presented [facility] ED on 08/04/2025 for weakness and difficulty with ambulation. 1. Acute on chronic debility and difficulty with ambulation ? Admit under observation status to [facility]. PT/OT/case management consulted. Lives at home with but has required SNF placement in the past. Worsening weakness and difficulty with ambulation now is likely due to his recent procedure as below and dehydration from poor p.o. intake postoperatively. is requesting SNF placement on discharge and patient is agreeable with this. Has been [place] in the past and had a good experience with her. Appreciate therapy recommendations. 2. 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 Patient with history of right popliteal traumatic pseudoaneurysm secondary to a mechanical fall. Had right popliteal angioplasty with stent placement done with Dr. Mckeon on 08/02. Tolerated procedure well and was able to be discharged home, but has had significant right posterior knee pain since then especially with ambulation. Dr. Mckeon noted the patient had a significant hematoma in that popliteal area which is likely the cause of this pain. Otherwise left groin insertion site and right popliteal area with no concern for infection or other issues on exam. Pain control with Tylenol as needed and oxycodone as needed for now. No inpatient vascular surgery needs, continue outpatient follow-up. 3. Mild MAURO ? Creatinine 1.53 on admit, baseline 1.1-1.2. Presume prerenal secondary to postoperative dehydration with poor p.o. intake. Will give 1 L of IV fluids on admit. Follow-up a.m. BMP and monitor urine output. 4. Mild acute on chronic anemia ? Hemoglobin 8.9 on admit. Was 9.3 on 07/27 and prior baseline appears to be around 11-12. Hemoglobin dropped to 9.3 was presumably due to pseudoaneurysm as above. Suspect hemoglobin on this admission is somewhat hemoconcentrated and may be closer to 8-8.5, but this would still be consistent with worsened anemia due to expected procedural blood loss. No active signs of bleeding noted. Follow-up a.m. CBC. Chronic medical conditions: ? History of CAD with stenting and LORENE clipping, history of bioprosthetic AVR, paroxysmal A-fib, hypertension, hyperlipidemia: Follows with [place] [facility]. In rate controlled A-fib in the ED. Not on anticoagulation due to prior history of significant hematuria and has had left atrial appendage clipping done. Blood pressure low normal in the ED presumably due to volume depletion postoperatively as above. Okay to continue home amlodipine, hydralazine and carvedilol with hold parameters. Will hold losartan for now. Continue home Plavix and rosuvastatin. ? Mild cognitive impairment with anxiety/depression: Stable. Continue home citalopram, Seroquel and donepezil. ? BPH with obstructive symptoms: Stable. Continue home Flomax. ? GERD: Continue home Pepcid. DVT prophylaxis: Lovenox CODE STATUS: Full code, verified Expected disposition: TBD Total clinical time spent by myself addressing the patient's medical issues, reviewing all the data, and collaborating with patient's care team: 79 minutes. Charges/Coding Visit Charges Inpatient E&M: 96751 Init Hosp L3
[2025-08-04 16:20] LABS: Color, Urine Yellow (Yellow); Glucose, Dipstick Normal (Normal); Ketone-Dipstick Negative (Negative); Leukocyte Esterase-Dipstick Negative /ul (Negative); Nitrite-Dipstick Negative (Negative); Occult Blood-Urine Negative /ul (Negative); Protein-Dipstick 30 mg/dl (Negative); Specific Gravity, Urine 1.020 (1.002-1.030); Urine Bilirubin Dipstick Negative (Negative)
[2025-08-04 16:26] LABS: Reflex Lactate? Y
[2025-08-04 17:39] LABS: Fine Granular Cast- Urine 0-5 SEEN /lpf (0-5)
[2025-08-04 17:41] LABS: Red Blood Cells-Urine 0-5 SEEN /hpf (0-5); Squamous Epithelial Cells - UA 0-5 SEEN /hpf (0-5)
[2025-08-04] MEDS: Multivitamin (Healthy Eyes) Capsule 1 CAP PO (21:10)
[2025-08-05] VITALS (9 sets, daily range): BP systolic 100–169; BP diastolic 67–91; PULSE 69–112; RESP 16–22; TEMP 36.6–37.2; O2SAT 94–96
[2025-08-05] MEDS: 0.9% Normal Saline (1000mL) 1,000 ML 150 ML IV ×3 (01:23→20:33)
[2025-08-05 04:06] LABS: Hematocrit 27.9 % (40-54); Hemoglobin 8.6 g/dL (13.0-16.5); Mean Corp Hgb Conc 30.8 g/dL (32-36); Mean Corpuscular Volume 84.0 fL (80-94); Mean Platelet Vol. 9.0 fl (6.2-12.0); Platelet Count 248 K/mm3 (150-450); RBC Distribution Width CV 16.8 % (11.6-14.6); RBC Distribution Width SD 49.7 fl (35.1-43.9); Red Blood Count 3.32 M/mm3 (4.6-6.2); White Blood Count 13.8 K/mm3 (4.4-11.0)
[2025-08-05 04:25] LABS: Anion Gap 11 (5-15); BUN 35 mg/dL (4-19); BUN/Creat Ratio 26.3 RATIO (10-20); Calcium,Total 7.9 mg/dL (7.6-11.0); Carbon Dioxide 21.1 mmol/L (21.0-32.0); Chloride 106 mmol/L (98-108); Estimated Creatinine Clearance 44.34 ml/min (50-250); Glucose 114 mg/dL (70-99); Potassium 4.6 mmol/L (3.3-5.1)
[2025-08-05] MEDS: Multivitamin (Healthy Eyes) Capsule 1 CAP PO ×2 (09:55→21:02)
--- NOTE | 2025-08-05 14:21 | CASEMGMT ---
SHARIF CM into pt room, discussed therapy and DC planning with Pt. Pt states he does not feel he is able to DC home at this time and would like to go to a SNF. States he is a lot weaker than his usual baseline. Provided pt a list of local SNF choices, chose 1. [facility] and 2. [facility].
--- NOTE | 2025-08-05 14:37 | CASEMGMT ---
Social Work- SW completed referral to [facility]. SW remains available to follow for discharge planning. ERMIAS Ureña
--- NOTE | 2025-08-05 15:05 | PCM.PN.HOSP ---
Subjective Subjective Still significant pain behind his right knee with limited mobility Objective Data Objective Data Vital Signs: Vital Signs Temp Pulse Resp BP Pulse Ox O2 Del Method 98.6 F 110 H 18 118/71 96 Room Air 08/05/25 10:01 08/05/25 10:01 08/05/25 10:01 08/05/25 10:01 08/05/25 10:01 08/05/25 11:45 Oxygen Delivery Method Room Air Weight: 201 lb 2.066 oz Body Mass Index (BMI) 29.7 Intake & Output: Intake and Output for Last 24 Hours 08/04/25 08/05/25 08/06/25 03:59 03:59 03:59 Intake Total 2107.5 / 2107.5 1750 / 1750 Output Total 450 / 450 1025 / 1025 Balance 1657.5 / 1657.5 725 / 725 Lab / Micro Data 08/05/25 03:33 08/05/25 03:33 Labs: Laboratory Results - last 24 hr 08/04/25 16:07: Urine Color Yellow, Urine Clarity Sl. Cloudy, Urine pH 5.0, Ur Specific [place] 1.020, Urine Protein 30 H, Urine Glucose (UA) Normal, Urine Ketones Negative, Urine Occult Blood Negative, Urine Nitrite Negative, Urine Bilirubin Negative, Urine Urobilinogen Normal, Ur Leukocyte Esterase Negative, Urine RBC 0-5 SEEN, Urine WBC 0-5 SEEN, Ur Squamous Epith Cells 0-5 SEEN, Urine Bacteria 0 SEEN, Hyaline Casts 0-5 SEEN, Fine Granular Casts 0-5 SEEN, Urine Mucus 0 SEEN 08/04/25 16:38: Lactic Acid 1.4 08/05/25 03:33: WBC 13.8 H, RBC 3.32 L, Hgb 8.6 L, Hct 27.9 L, MCV 84.0, MCH 25.9 L, MCHC 30.8 L, RDW Std Deviation 49.7 H, RDW Coeff of Genesis 16.8 H, Plt Count 248, MPV 9.0, Sodium 138, Potassium 4.6, Chloride 106, Carbon Dioxide 21.1, Anion Gap 11, BUN 35 H, Creatinine 1.31 H, Estim Creat Clear Calc 44.34 L, Est GFR (MDRD) Non-Af 53 L, BUN/Creatinine Ratio 26.3 H, Glucose 114 H, Calcium 7.9 Rhythm Strip Rhythm Strip: A-fib Rate: 95 Ectopy: None Physical Exam Narrative General: Alert, Oriented x3, Cooperative, No apparent distress HEENT: Atraumatic, PERRLA, EOMI, Normocephalic Oral: Moist Mucosa Neck: Supple, No JVD Lungs: Diminished, Normal air movement, No rhonchi, No wheeze, No rales Cardiovascular: Regular rate, Regular Rhythm, Normal S1, Normal S2, No murmurs Abdomen: Soft, Non Tender, Non-Distended, No Hepato-splenomegaly Extremities: No edema, Capillary Refill Less than 3 Seconds Skin: No rashes, No breakdown Musculoskeletal: Tenderness to palpation behind his right knee Neurological: No focal neurological deficits, moves all of his extremities though right lower extremity is severely limited due to pain Psych/Mental Status: Normal Affect, Appropriate Assessment & Plan Assessment/Plan (1) Debility: (2) MAURO (acute kidney injury): (3) Leg pain, right: PLAN: Plan 1. Right lower extremity pain after stent placement for right popliteal pseudoaneurysm with hematoma with an inability complete ADLs and worsening weakness ? PT/OT ? His white count is elevated and it is possible to still be a reactive leukocytosis after intervention which was done on 08/02/2025 ? Will monitor for infectious etiologies if his white count does not completely resolve ? His groin site for the stent placement looks uninfected ? Will consult case management for placement given the significant debility with his leukocytosis and dehydration will need discharge planning 2. MAURO ? Baseline creatinine is around 1 and his creatinine on admission was 1.53 ? Received IV fluids and his creatinine did improve slightly to 1.31 ? Will continue to monitor 3. Worsening acute on chronic anemia ? Baseline hemoglobin around 12-13, his hemoglobin on 07/27/2025 was 9.3 this is down from 11.4 on 05/04/2025 currently 8.6 ? Will obtain iron studies 4. CAD status post stent/bioprosthetic AVR/paroxysmal A-fib/essential HTN/HLD ? Blood pressure stable ? Continue with his home blood pressure medications ? Will monitor make adjustments as necessary ? Hold his losartan secondary to his MAURO 5. Anxiety/depression/mild cognitive impairment ? Stable ? Continue with his home medications 6. BPH with obstructive symptoms ? Stable ? Continue with Flomax 7. GERD ? Stable ? Continue with Pepcid DVT: Lovenox Charges/Coding Visit Charges Inpatient E&M: 69734 Subs Hosp L2
[2025-08-05] MEDS: Polyethylene Glycol 3350 17 GM PACKET PO ×2 (16:52→21:03)
[2025-08-05 16:58] LABS: Ferritin 521 ng/mL (37-417)
[2025-08-05 17:28] LABS: Iron 14 ug/dL (65-175); Iron Binding Capacity,Unsat 135 ug/dL (228-428)
[2025-08-05 17:32] LABS: Iron Binding Capacity,Total 149 ug/dL (250-450)
[2025-08-05] MEDS: Senna/Docusate Sodium 1 Tablet PO ×2 (18:14→21:01)
[2025-08-06] VITALS (9 sets, daily range): BP systolic 105–152; BP diastolic 58–88; PULSE 83–93; RESP 16–20; TEMP 36.6–37; O2SAT 95–98
[2025-08-06] MEDS: 0.9% Normal Saline (1000mL) 1,000 ML 150 ML IV (03:36)
[2025-08-06 04:32] LABS: Hematocrit 26.9 % (40-54); Hemoglobin 8.0 g/dL (13.0-16.5); Immature Granulocytes Count 0.430 X10^3/uL (0.0-0.0); Mean Corp Hgb Conc 29.7 g/dL (32-36); Mean Corpuscular Volume 83.0 fL (80-94); Mean Platelet Vol. 9.1 fl (6.2-12.0); NRBC Flagged by Analyzer 0 % (0-5); POSITIVE DIFFERENTIAL YES; Platelet Count 237 K/mm3 (150-450); RBC Distribution Width CV 16.5 % (11.6-14.6); RBC Distribution Width SD 49.5 fl (35.1-43.9); Red Blood Count 3.24 M/mm3 (4.6-6.2); White Blood Count 17.1 K/mm3 (4.4-11.0)
[2025-08-06 05:01] LABS: Anion Gap 10 (5-15); BUN 24 mg/dL (4-19); BUN/Creat Ratio 24.3 RATIO (10-20); Calcium,Total 8.0 mg/dL (7.6-11.0); Carbon Dioxide 18.5 mmol/L (21.0-32.0); Chloride 107 mmol/L (98-108); Estimated Creatinine Clearance 58.09 ml/min (50-250); Glucose 121 mg/dL (70-99); Potassium 4.7 mmol/L (3.3-5.1)
[2025-08-06 05:48] LABS: Differential Indicated SCAN CRITERIA MET
[2025-08-06 05:49] LABS: Differential Comment SCANNED
--- NOTE | 2025-08-06 07:39 | PN.HOSP_ITS ---
Reason for Visit Chief Complaint: Weakness and difficulty with ambulation Objective Data Objective Data Vital Signs: Vital Signs Temp Pulse Resp BP Pulse Ox O2 Del Method 98.1 F 83 20 H 152/81 H 97 Room Air 08/06/25 06:31 08/06/25 06:39 08/06/25 06:31 08/06/25 06:39 08/06/25 06:31 08/06/25 06:31 Oxygen Delivery Method Room Air Weight: 201 lb 2.066 oz Body Mass Index (BMI) 29.7 Intake & Output: Intake and Output for Last 24 Hours 08/04/25 08/05/25 08/06/25 23:59 23:59 23:59 Intake Total 1107.5 / 1107.5 4350 / 4350 1500 / 1500 Output Total 200 / 450 1275 / 1275 1200 / 1200 Balance 907.5 / 657.5 3075 / 3075 300 / 300 Lab / Micro Data 08/06/25 03:57 08/06/25 03:57 Labs: Laboratory Results - last 24 hr 08/05/25 03:33: Iron 14 L, TIBC 149 L, Iron Saturation 9.4, Unsaturated IBC 135 L, Ferritin 521 H 08/06/25 03:57: WBC 17.1 H, RBC 3.24 L, Hgb 8.0 L, Hct 26.9 L, MCV 83.0, MCH 24.7 L, MCHC 29.7 L, RDW Std Deviation 49.5 H, RDW Coeff of Genesis 16.5 H, Plt Count 237, MPV 9.1, Immature Gran % (Auto) 2.500 H, Neut % (Auto) 78.4 H, Lymph % (Auto) 8.0 L, [place] % (Auto) 10.9 H, Eos % (Auto) 0.0, Baso % (Auto) 0.2, A bsolute Neuts (auto) 13.4 H, Absolute Lymphs (auto) 1.37, Nucleated RBC % 0, Differential Comment SCANNED, Sodium 135, Potassium 4.7, Chloride 107, Carbon Dioxide 18.5 L, Anion Gap 10, B UN 24 H, Creatinine 1.00, Estim Creat Clear Calc 58.09, Est GFR (MDRD) Non-Af 73, BUN/Creatinine Ratio 24.3 H, Glucose 121 H, Calcium 8.0 Rhythm Strip Rhythm Strip: A-fib Rate: 95 Ectopy: None Physical Exam Narrative right lower extremity is severely limited due to pain Patient complain of pain, severe 10/10 over popliteal fossa. Pain is same before the popliteal stenting for popliteal pseudoaneurysm. Discussed with vascular surgeon Dr. Channing Mckeon. No fever. Denies chest pain or shortness of breath. Physical exam General: Alert, Oriented x3, Cooperative. BMI 29.7 kg/m?. HEENT: Atraumatic, PERRLA, EOMI, Normocephalic. Oral: No Gingival or Mucosal Lesions/ Ulcerations Neck: Supple, No JVD, Negative Carotid Bruits Chest wall/Lungs: Air entry diminished in bilateral lung bases. No crepitation/rhonchi Cardiovascular: Regular rate and rhythm, Normal S1,S2, No M/G/R. Pulses palpable lower bilateral popliteal, PT and dorsalis pedis similar in volume. Abdomen: Bowel Sounds Present, Soft, Non Tender, Non-Distended : No dysuria. No renal angle tenderness. No suprapubic tenderness. Extremities: No edema, Capillary Refill Less than 3 Seconds Skin: No rashes, No breakdown. Palpable swelling of right popliteal region. Musculoskeletal: No Tenderness to Palpation of Joints or Extremities Neurological: Cranial nerves II-XII grossly intact, DTR 2+/4. No acute focal neurological deficit. Psych/Mental Status: Normal Affect, Appropriate. Assessment & Plan Assessment/Plan (1) Debility: (2) MAURO (acute kidney injury): (3) Leg pain, right: PLAN: Plan 1. 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 Angioplasty and covered stent right popliteal artery to exclude pseudoaneurysm on 08/02/[address] Mckeon ? PT/OT ? His white count is elevated and most likely reactive leukocytosis after intervention which was done on 08/02/2025. No fever or hypotension or systemic symptoms of infection. Blood culture is ordered. Antibiotic not indicated yet ? Continue monitor for infectious etiologies if his white count does not completely resolve Mild swelling at the right popliteal region probably hematoma. It is tender Discussed with the vascular surgeon. His pain is same as prior to vascular stenting and it is expected. On Tylenol, oxycodone and muscle relaxant. Cold compression 2. MAURO ? Baseline creatinine is around 1 and his creatinine on admission was 1.53 ? Received IV fluids and his creatinine did improve slightly to 1.31 08/06: Creatinine 1.0. MAURO resolved. Discontinue IV fluid. 3. Worsening acute on chronic anemia ? Baseline hemoglobin around 12-13, his hemoglobin on 07/27/2025 was 9.3 this is down from 11.4 on 05/04/2025 currently 8.6 ? 08/06: Hemoglobin decreased to 8.0. 4. CAD status post stent/bioprosthetic AVR/paroxysmal A-fib/essential HTN/HLD ? Blood pressure is in normal range 121/86. Heart rate controlled ? Continue with his home blood pressure medications Monitor BP and adjust accordingly. ? Hold his losartan secondary to his MAURO 5. Anxiety/depression/mild cognitive impairment ? Continue with his home medications. Chronic disease 6. BPH with obstructive symptoms ? Chronic ? Continue with Flomax 7. GERD ? Continue with Pepcid DVT: Lovenox Laboratory Results 08/05/25 03:33: Iron 14 L, TIBC 149 L, Iron Saturation 9.4, Unsaturated IBC 135 L, Ferritin 521 H 08/06/25 03:57: WBC 17.1 H, RBC 3.24 L, Hgb 8.0 L, Hct 26.9 L, MCV 83.0, MCH 24.7 L, MCHC 29.7 L, RDW Std Deviation 49.5 H, RDW Coeff of Genesis 16.5 H, Plt Count 237, MPV 9.1, Immature Gran % (Auto) 2.500 H, Neut % (Auto) 78.4 H, Lymph % (Auto) 8.0 L, [place]y % (Auto) 10.9 H, Eos % (Auto) 0.0, Baso % (Auto) 0.2, A bsolute Neuts (auto) 13.4 H, Absolute Lymphs (auto) 1.37, Nucleated RBC % 0, Differential Comment SCANNED, Sodium 135, Potassium 4.7, Chloride 107, Carbon Dioxide 18.5 L, Anion Gap 10, BUN 24 H, Creatinine 1.00, Estim Creat Clear Calc 58.09, Est GFR (MDRD) Non-Af 73, BUN/Creatinine Ratio 24.3 H, Glucose 121 H, Calcium 8.0 Charges/Coding Visit Charges Inpatient E&M: 32742 Subs Hosp L2
[2025-08-06] MEDS: Polyethylene Glycol 3350 17 GM PACKET PO ×2 (07:59→20:48)
[2025-08-06] MEDS: Senna/Docusate Sodium 1 Tablet PO ×2 (07:59→20:46)
[2025-08-06] MEDS: Multivitamin (Healthy Eyes) Capsule 1 CAP PO ×2 (07:59→20:47)
[2025-08-06] MEDS: 0.9% Saline Lock 10 ML Syringe IV (20:43)
[2025-08-07] VITALS (8 sets, daily range): BP systolic 124–172; BP diastolic 67–94; PULSE 63–111; RESP 17–20; TEMP 36.3–37.5; O2SAT 96–98
--- NOTE | 2025-08-07 08:19 | CASEMGMT ---
Discharge Planning Updates sent to [facility]. Geno Baptiste DC Planning Asst.
[2025-08-07] MEDS: Multivitamin (Healthy Eyes) Capsule 1 CAP PO ×2 (08:25→22:17)
--- NOTE | 2025-08-07 10:23 | CASEMGMT ---
[facility] has accepted. Pts qualifying stay will be 08/08/25. SW updated. Geno Baptiste DC Planning Asst.
--- NOTE | 2025-08-07 10:24 | CASEMGMT ---
Social Work- SW received notice that [facility] accepted referral. Pt updated. Pt asked SW to call sister to update; SW left a voicemail for sister. Pt denies any additional needs at this time. ERMIAS Ureña
--- NOTE | 2025-08-07 13:58 | PCM.PN.HOSP ---
Reason for Visit Chief Complaint: Weakness and difficulty with ambulation Objective Data Objective Data Vital Signs: Vital Signs Temp Pulse Resp BP Pulse Ox O2 Del Method 97.3 F L 96 17 124/74 H 98 Room Air 08/07/25 08:08 08/07/25 13:43 08/07/25 08:08 08/07/25 13:43 08/07/25 08:08 08/07/25 13:46 Oxygen Delivery Method Room Air Weight: 201 lb 2.066 oz Body Mass Index (BMI) 29.7 Intake & Output: Intake and Output for Last 24 Hours 08/05/25 08/06/25 08/07/25 23:59 23:59 23:59 Intake Total 4350 / 4350 3200 / 3200 Output Total 1275 / 1275 1550 / 1950 650 / 650 Balance 3075 / 3075 1650 / 1250 -650 / -650 Lab / Micro Data 08/06/25 03:57 08/06/25 03:57 Rhythm Strip Rhythm Strip: A-fib Rate: 95 Ectopy: None Physical Exam Narrative right lower extremity is severely limited due to pain Patient complain of pain, severe 10/10 over popliteal fossa states no difference from yesterday. Pain is same before the popliteal stenting for popliteal pseudoaneurysm. Physical exam General: Alert, Oriented x3, Cooperative. BMI 29.7 kg/m?. HEENT: Atraumatic, PERRLA, EOMI, Normocephalic. Oral: No Gingival or Mucosal Lesions/ Ulcerations Neck: Supple, No JVD, Negative Carotid Bruits Chest wall/Lungs: Air entry diminished in bilateral lung bases. No crepitation/rhonchi Cardiovascular: Regular rate and rhythm, Normal S1,S2, No M/G/R. Pulses palpable lower bilateral popliteal, PT and dorsalis pedis similar in volume. Some knot feeling, right popliteal artery. Abdomen: Bowel Sounds Present, Soft, Non Tender, Non-Distended : No dysuria. No renal angle tenderness. No suprapubic tenderness. Extremities: No edema, Capillary Refill Less than 3 Seconds Skin: No rashes, No breakdown. Palpable swelling of right popliteal region. Musculoskeletal: No Tenderness to Palpation of Joints or Extremities Neurological: Cranial nerves II-XII grossly intact, DTR 2+/4. No acute focal neurological deficit. Psych/Mental Status: Normal Affect, Appropriate. Assessment & Plan Assessment/Plan (1) Debility: (2) MAURO (acute kidney injury): (3) Leg pain, right: PLAN: Plan 1. 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 Angioplasty and covered stent right popliteal artery to exclude pseudoaneurysm on 08/02/[address] Mckeon ? PT/OT ? His white count is elevated and most likely reactive leukocytosis after intervention which was done on 08/02/2025. No fever or hypotension or systemic symptoms of infection. Blood culture is ordered. Antibiotic not indicated yet ? Continue monitor for infectious etiologies if his white count does not completely resolve Mild swelling at the right popliteal region probably hematoma. It is tender Discussed with the vascular surgeon. His pain is same as prior to vascular stenting and it is expected. On Tylenol, oxycodone and muscle relaxant. Cold compression 08/07: Continue pain medication, physical therapy. 2. MAURO ? Baseline creatinine is around 1 and his creatinine on admission was 1.53 ? Received IV fluids and his creatinine did improve slightly to 1.31 08/06: Creatinine 1.0. MAURO resolved. Discontinue IV fluid. 3. Worsening acute on chronic anemia ? Baseline hemoglobin around 12-13, his hemoglobin on 07/27/2025 was 9.3 this is down from 11.4 on 05/04/2025 currently 8.6 ? 08/06: Hemoglobin decreased to 8.0. 08/07: Hemoglobin 8.0. 4. CAD status post stent/bioprosthetic AVR/paroxysmal A-fib/essential HTN/HLD ? Blood pressure is in normal range 121/86. Heart rate controlled ? Continue with his home blood pressure medications Monitor BP and adjust accordingly. ? Hold his losartan secondary to his MAURO 5. Anxiety/depression/mild cognitive impairment ? Continue with his home medications. Chronic disease 6. BPH with obstructive symptoms ? Chronic ? Continue with Flomax 7. GERD ? Continue with Pepcid DVT: Lovenox Laboratory Results 08/05/25 03:33: Iron 14 L, TIBC 149 L, Iron Saturation 9.4, Unsaturated IBC 135 L, Ferritin 521 H 08/06/25 03:57: WBC 17.1 H, RBC 3.24 L, Hgb 8.0 L, Hct 26.9 L, MCV 83.0, MCH 24.7 L, MCHC 29.7 L, RDW Std Deviation 49.5 H, RDW Coeff of Genesis 16.5 H, Plt Count 237, MPV 9.1, Immature Gran % (Auto) 2.500 H, Neut % (Auto) 78.4 H, Lymph % (Auto) 8.0 L, [place] % (Auto) 10.9 H, Eos % (Auto) 0.0, Baso % (Auto) 0.2, Absolute Neuts (auto) 13.4 H, Absolute Lymphs (auto) 1.37, Nucleated RBC % 0, Differential Comment SCANNED, Sodium 135, Potassium 4.7, Chloride 107, Carbon Dioxide 18.5 L, Anion Gap 10, BUN 24 H, Creatinine 1.00, Estim Creat Clear Calc 58.09, Est GFR (MDRD) Non-Af 73, BUN/Creatinine Ratio 24.3 H, Glucose 121 H, Calcium 8.0 Charges/Coding Visit Charges Inpatient E&M: 90303 Subs Hosp L2
--- NOTE | 2025-08-07 15:37 | CHAPLAIN ---
Type of Pastoral Visit _x__ Initial Visit ___ Follow-up Visit ___ On-call Visit ___ General Patient Visit ___ Spiritual Assessment ___ Family Conference ___ Bereavement ___ Rapid Response ___ Code Blue ___ Other (describe below) Pastoral Care Referral From _x__ Patient ___ Family ___ Nurse ___ Physician ___ Saddle And Side Wire Stitcher ___ Archives Technician ___ Other (describe below) Sacrament/Intervention _x__ Active listening ___ Anointing ___ Jew ___ Bereavement ___ Communion ___ Ashley exploration ___ ___ Life review _x__ Prayer ___ Reconciliation ___ Sacrament of Sick _x__ Supportive presence ___ Wedding ___ Other (describe below) Pastoral Comments patient is welcoming and explains his pain and his uncertainty; pt states that he will be going to a SNF for a time; pt is okay with the plan and acknowledges that he might be much to handle for his sister with whom he lives; pt cannot give any clear needs or concerns other than his health; pt states twice 'can you give me a new body'; prayer is welcomed
[2025-08-07] MEDS: Polyethylene Glycol 3350 17 GM PACKET PO (22:16)
[2025-08-07] MEDS: Senna/Docusate Sodium 1 Tablet 2 TABLET PO (22:17)
[2025-08-08 04:07] VITALS: BP 157/82; PULSE 88; RESP 20; TEMP 36.3; O2SAT 97
[2025-08-08 05:05] LABS: Hematocrit 27.3 % (40-54); Hemoglobin 8.7 g/dL (13.0-16.5); Immature Granulocytes Count 0.230 X10^3/uL (0.0-0.0); Mean Corp Hgb Conc 31.9 g/dL (32-36); Mean Corpuscular Volume 82.2 fL (80-94); Mean Platelet Vol. 8.7 fl (6.2-12.0); NRBC Flagged by Analyzer 0 % (0-5); Platelet Count 239 K/mm3 (150-450); RBC Distribution Width CV 16.7 % (11.6-14.6); RBC Distribution Width SD 49.8 fl (35.1-43.9); Red Blood Count 3.32 M/mm3 (4.6-6.2); White Blood Count 8.1 K/mm3 (4.4-11.0)
[2025-08-08 05:26] LABS: Anion Gap 9 (5-15); BUN 20 mg/dL (4-19); BUN/Creat Ratio 18.8 RATIO (10-20); Calcium,Total 8.4 mg/dL (7.6-11.0); Carbon Dioxide 23.3 mmol/L (21.0-32.0); Chloride 105 mmol/L (98-108); Estimated Creatinine Clearance 55.85 ml/min (50-250); Glucose 97 mg/dL (70-99); Potassium 4.6 mmol/L (3.3-5.1)
[2025-08-08 06:07] VITALS: BP 157/82; PULSE 88
--- NOTE | 2025-08-08 08:11 | NURSING ---
Charting from 08/07/25 1900-08/08/25 0700, including shift assessment, nursing notes, Edd, fall risk assessment, rounds, and vitals charted via paper charting on pt chart due to lack of [employer] access-IS aware.
[2025-08-08] MEDS: Multivitamin (Healthy Eyes) Capsule 1 CAP PO (09:37)
--- NOTE | 2025-08-08 09:37 | CASEMGMT ---
Social Work- SW spoke with Helena, pt sister, to discuss discharge planning. Pt sister reports that she has been caring for pt for 7 years and it has become too much. Pt sister reports that she is 79 and is tired from the level of care pt requires. Pt sister would like update on time of transfer. SW remains available to follow. Plan: [facility]; when medically ready ERMIAS Ureña
[2025-08-08 10:15] VITALS: BP 118/70; PULSE 84; RESP 16; TEMP 36.6; O2SAT 98
--- NOTE | 2025-08-08 10:32 | PCM.TXEXTCAR ---
Diet Diet Order/Speech Therapy: INPATIENT Hospital Diet / Speech Therapy Order(s) 08/04/25 17:49 Diet: Cardiac - Heart Healthy Food consistency:: Regular Liquid Consistency:: Regular/Thin Routine Orders/Code Status Suppository Type: Dulcolax 10mg Suppository Frequency: Daily PRN DC O2, CPAP, BIPAP needs Home O2 Discharge instructions: No Therapies Extremity Affected:: Bilateral Lower Physical Therapy: Eval and Treat Occupational Therapy: Eval and Treat Speech Therapy: Eval and Treat Problem/Diagnosis (1) Debility: Status: Acute Code(s): R53.81 - Other malaise (2) MAURO (acute kidney injury): Status: Acute Code(s): N17.9 - Acute kidney failure, unspecified (3) Leg pain, right: Status: Acute Code(s): M79.604 - Pain in right leg Plan 1. 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 Angioplasty and covered stent right popliteal artery to exclude pseudoaneurysm on 08/02/[address] Mckeon ? PT/OT ? His white count is elevated and most likely reactive leukocytosis after intervention which was done on 08/02/2025. No fever or hypotension or systemic symptoms of infection. Blood culture is ordered. Antibiotic not indicated yet ? Continue monitor for infectious etiologies if his white count does not completely resolve Mild swelling at the right popliteal region probably hematoma. It is tender Discussed with the vascular surgeon. His pain is same as prior to vascular stenting and it is expected. On Tylenol, oxycodone and muscle relaxant. Cold compression 08/07: Continue pain medication, physical therapy. 2. MAURO ? Baseline creatinine is around 1 and his creatinine on admission was 1.53 ? Received IV fluids and his creatinine did improve slightly to 1.31 08/06: Creatinine 1.0. MAURO resolved. Discontinue IV fluid. 3. Worsening acute on chronic anemia ? Baseline hemoglobin around 12-13, his hemoglobin on 07/27/2025 was 9.3 this is down from 11.4 on 05/04/2025 currently 8.6 ? 08/06: Hemoglobin decreased to 8.0. 08/07: Hemoglobin 8.0. 4. CAD status post stent/bioprosthetic AVR/paroxysmal A-fib/essential HTN/HLD ? Blood pressure is in normal range 121/86. Heart rate controlled ? Continue with his home blood pressure medications Monitor BP and adjust accordingly. ? Hold his losartan secondary to his MAURO 5. Anxiety/depression/mild cognitive impairment ? Continue with his home medications. Chronic disease 6. BPH with obstructive symptoms ? Chronic ? Continue with Flomax 7. GERD ? Continue with Pepcid DVT: Lovenox Laboratory Results 08/05/25 03:33: Iron 14 L, TIBC 149 L, Iron Saturation 9.4, Unsaturated IBC 135 L, Ferritin 521 H 08/06/25 03:57: WBC 17.1 H, RBC 3.24 L, Hgb 8.0 L, Hct 26.9 L, MCV 83.0, MCH 24.7 L, MCHC 29.7 L, RDW Std Deviation 49.5 H, RDW Coeff of Genesis 16.5 H, Plt Count 237, MPV 9.1, Immature Gran % (Auto) 2.500 H, Neut % (Auto) 78.4 H, Lymph % (Auto) 8.0 L, [place] % (Auto) 10.9 H, Eos % (Auto) 0.0, Baso % (Auto) 0.2, Absolute Neuts (auto) 13.4 H, Absolute Lymphs (auto) 1.37, Nucleated RBC % 0, Differential Comment SCANNED, Sodium 135, Potassium 4.7, Chloride 107, Carbon Dioxide 18.5 L, Anion Gap 10, BUN 24 H, Creatinine 1.00, Estim Creat Clear Calc 58.09, Est GFR (MDRD) Non-Af 73, BUN/Creatinine Ratio 24.3 H, Glucose 121 H, Calcium 8.0 Allergies/Procedures Done in Hospital Allergies atorvastatin Adverse Reaction (Intermediate, Verified 07/27/25 14:23) Myalgias Type of Care/Length of Stay Estimated LOS: Convalescent Care Less Than 30 days Type of Care Needed: Skilled Rehab Potential: Good Prognosis: Good Additional Orders/Day of Discharge Day of Discharge: 08/08/25 Dietary and Speech Recommendations Dietitian Recommendations/Changes: Continue Cardiac diet as ordered Continue to follow and monitor for changes in pt nutritional status Discharge Plan Admission Admit Date/Time: 08/05/25 12:13 Attending Provider: Pedro Banegas Primary Care Provider: Husam Khan Chi Consulting Providers: Morgan Dubon; Jim Adams Discharge Orders/Prescriptions Prescriptions: New acetaminophen 500 mg Tablet 1,000 mg PO Q8 Qty: 0 0RF Rx Instructions: Acetaminophen 1 g Q8 hourly for 1 week for pain and then every 8 hourly as needed for pain oxycodone 5 mg Tablet 2.5 mg PO Q6H PRN PRN (Reason: Pain Score 6-10) 3 Days Qty: 7 0RF sennosides-docusate sodium [Stimulant Laxative Plus] 8.6-50 mg Tablet 2 tab PO BID Qty: 0 0RF Continued famotidine [Pepcid] 40 mg tablet 40 mg PO DAILY citalopram 10 mg tablet 10 mg PO DAILY Patient Comments: Take 1 Tablet orally once per Day for 30 Days donepezil 10 mg tablet 10 mg PO DAILY Patient Comments: TAKE 1 TABLET BY MOUTH DAILY WITH SUPPER quetiapine 25 mg tablet 25 mg PO BID cyanocobalamin (vitamin B-12) 1,000 mcg capsule 1,000 mcg PO DAILY ascorbate calcium (vitamin C) 500 mg tablet 500 mg PO DAILY PreserVision AREDS-2 250-90-40-1 mg capsule 1 tab PO BID amlodipine 5 mg tablet 5 mg PO QHS Qty: 90 3RF tamsulosin 0.4 MG capsule 0.4 mg PO QHS albuterol sulfate 90 mcg/actuation HFA aerosol inhaler 2 puff INHALATION Q6H PRN (Reason: shortness of breath or wheezing) carvedilol 3.125 mg tablet 3.125 mg PO BID Qty: 180 3RF Rx Instructions: must administer with a meal/food hydralazine 50 mg tablet 50 mg PO TID Qty: 270 1RF rosuvastatin [Crestor] 20 mg tablet 10 mg PO DAILY Qty: 30 12RF clopidogrel 75 mg tablet 75 mg PO DAILY Qty: 90 4RF Held losartan 50 mg tablet 50 mg PO DAILY Qty: 90 4RF Hold Instructions: Resume after 3 days Referrals / Follow Up: Channing Mckeon MD [Med Staff - Active Staff] - Within 1 Month Husam Khan Chi, MD [Primary Care Provider] - Within 2 Weeks Disposition Disposition (needs filled in before D/C Order can be placed): [facility] Facility
--- NOTE | 2025-08-08 12:39 | DS.PCM_ITS ---
Providers Date of Admission: 08/05/25 Date of Discharge: 08/08/25 Primary Care Physician: Dr. 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 Patient had pain preoperatively. 1. 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 Angioplasty and covered stent right popliteal artery to exclude pseudoaneurysm on 08/02/[address] Mckeon ? PT/OT ? His white count is elevated and most likely reactive leukocytosis after intervention which was done on 08/02/2025. No fever or hypotension or systemic symptoms of infection. Blood culture is ordered. Antibiotic not indicated yet ? Continue monitor for infectious etiologies if his white count does not completely resolve Mild swelling at the right popliteal region probably hematoma. It is tender Discussed with the vascular surgeon. His pain is same as prior to vascular stenting and it is expected. On Tylenol, oxycodone and muscle relaxant. Cold compression 08/07: Continue pain medication, physical therapy. 08/08: Pain is controlled, states 7?8/10 intensity. Patient discharged on oxycodone. OARRS reviewed. Unintentional overdose risk 8T. Prescribed oxycodone 2.5-5 mg q. 4 hourly as needed for moderate to severe pain respectively. Total 7 tablets given. 2. MAURO ? Baseline creatinine is around 1 and his creatinine on admission was 1.53 ? Received IV fluids and his creatinine did improve slightly to 1.31 08/06: Creatinine 1.0. MAURO resolved. Discontinue IV fluid. 08/08: Can resume losartan after 3 days. 3. Worsening acute on chronic anemia ? Baseline hemoglobin around 12-13, his hemoglobin on 07/27/2025 was 9.3 this is down from 11.4 on 05/04/2025 currently 8.6 ? 08/06: Hemoglobin decreased to 8.0. 08/07: Hemoglobin 8.0. 08/08: Hemoglobin improvement 8.7/27%. On baby aspirin and Plavix to continue. 4. CAD status post stent/bioprosthetic AVR/paroxysmal A-fib/essential HTN/HLD ? Blood pressure is in normal range 121/86. Heart rate controlled ? Continue with his home blood pressure medications Monitor BP and adjust accordingly. 5. Anxiety/depression/mild cognitive impairment ? Continue with his home medications. Chronic disease 6. BPH with obstructive symptoms ? Chronic ? Continue with Flomax 7. GERD ? Continue with Pepcid DVT: Lovenox Discharge medication reconciliation done. Discharge follow-up instructions completed. Discharge process discussed with the patient and all questions were answered to patient's satisfaction. Follow with PCP in 1 to 2 weeks Total time spent, exact 35 minutes on discharge meds reconciliation, examination, coordination of care with nurses and ancillary staff, review of imaging and blood test and discussion with the patient on follow-up instructions. Laboratory Results 08/05/25 03:33: Iron 14 L, TIBC 149 L, Iron Saturation 9.4, Unsaturated IBC 135 L, Ferritin 521 H 08/06/25 03:57: WBC 17.1 H, RBC 3.24 L, Hgb 8.0 L, Hct 26.9 L, MCV 83.0, MCH 24.7 L, MCHC 29.7 L, RDW Std Deviation 49.5 H, RDW Coeff of Genesis 16.5 H, Plt Count 237, MPV 9.1, Immature Gran % (Auto) 2.500 H, Neut % (Auto) 78.4 H, Lymph % (Auto) 8.0 L, Hart % (Auto) 10.9 H, Eos % (Auto) 0.0, Baso % (Auto) 0.2, A bsolute Neuts (auto) 13.4 H, Absolute Lymphs (auto) 1.37, Nucleated RBC % 0, Differential Comment SCANNED, Sodium 135, Potassium 4.7, Chloride 107, Carbon Dioxide 18.5 L, Anion Gap 10, BUN 24 H, Creatinine 1.00, Estim Creat Clear Calc 58.09, Est GFR (MDRD) Non-Af 73, BUN/Creatinine Ratio 24.3 H, Glucose 121 H, Calcium 8.0 Medications at Discharge Home Medications tamsulosin 0.4 mg capsule 0.4 mg PO QHS urine flow 08/20/19 famotidine 40 mg tablet (Pepcid) 40 mg PO DAILY 08/10/20 citalopram 10 mg tablet 10 mg PO DAILY 02/18/21 donepezil 10 mg tablet 10 mg PO DAILY 02/18/21 quetiapine 25 mg tablet 25 mg PO BID 02/18/21 cyanocobalamin (vitamin B-12) 1,000 mcg capsule 1,000 mcg PO DAILY 07/15/21 ascorbate calcium (vitamin C) 500 mg tablet 500 mg PO DAILY 01/13/22 carvedilol 3.125 mg tablet 3.125 mg PO BID #180 tabs 03/28/24 hydralazine 50 mg tablet 50 mg PO TID #270 TABLETS 04/04/25 amlodipine 5 mg tablet 5 mg PO QHS #90 tabs 06/22/25 vit C 250 mg-vit E 90 mg-zinc 40 mg-copper 1 [id number] capsule (PreserVision AREDS-2) 1 tab PO BID 06/22/25 rosuvastatin 20 mg tablet (Crestor) 10 mg (1/2 x 20 mg) PO DAILY #30 tabs 07/14/25 albuterol sulfate 90 mcg/actuation aerosol inhaler 2 puff inhalation Q6H PRN shortness of breath or wheezing 08/01/25 clopidogrel 75 mg tablet 75 mg PO DAILY #90 tabs 08/03/25 losartan 50 mg tablet 50 mg PO DAILY #90 tabs 08/03/25 Held on 08/08/25. Instructions: Resume after 3 days acetaminophen 500 mg tablet 1,000 mg (2 x 500 mg) PO Q8 #0 tabs 08/08/25 oxycodone 5 mg tablet 2.5 mg (1/2 x 5 mg) PO Q6H PRN PRN Pain Score 6-10 3 days #7 tabs 08/08/25 sennosides 8.6 mg-docusate sodium 50 mg tablet (Stimulant Laxative Plus) 2 tab PO BID #0 tabs 08/08/25 Physical Exam Narrative Seen and examined. Right lower leg pain is 7?8/10 intensity, better. Physical therapy to continue. Continue stool softener. Physical exam General: Alert, Oriented x3, Cooperative. BMI 29.7 kg/m?. HEENT: Atraumatic, PERRLA, EOMI, Normocephalic. Oral: No Gingival or Mucosal Lesions/ Ulcerations Neck: Supple, No JVD, Negative Carotid Bruits Chest wall/Lungs: Air entry diminished in bilateral lung bases. No crepitation/rhonchi Cardiovascular: Regular rate and rhythm, Normal S1,S2, No M/G/R. Pulses palpable lower bilateral popliteal, PT and dorsalis pedis similar in volume. Abdomen: Bowel Sounds Present, Soft, Non Tender, Non-Distended : No dysuria. No renal angle tenderness. No suprapubic tenderness. Extremities: No edema, Capillary Refill Less than 3 Seconds Skin: No rashes, No breakdown. Palpable swelling of right popliteal region. Musculoskeletal: No Tenderness to Palpation of Joints or Extremities Neurological: Cranial nerves II-XII grossly intact, DTR 2+/4. No acute focal neurological deficit. Psych/Mental Status: Flat affect. Weight / BMI Weight Weight: 201 lb 2.066 oz Body Mass Index (BMI) 29.7 ABG / Lab / Microbiology Data 08/08/25 04:22 08/08/25 04:22 Laboratory: Laboratory Results - last 24 hr 08/08/25 04:22: WBC 8.1, RBC 3.32 L, Hgb 8.7 L, Hct 27.3 L, MCV 82.2, MCH 26.2 L , MCHC 31.9 L D, RDW Std Deviation 49.8 H, RDW Coeff of Genesis 16.7 H, Plt Count 239, MPV 8.7, Immature Gran % (Auto) 2.900 H, Neut % (Auto) 63.2, Lymph % (Auto) 17.1 L, Hart % (Auto) 15.9 H, Eos % (Auto) 0.7, Baso % (Auto) 0.2, Absolute Neuts (auto) 5.1, Absolute Lymphs (auto) 1.38, Nucleated RBC % 0, Sodium 137, Potassium 4.6, Chloride 105, Carbon Dioxide 23.3, Anion Gap 9, BUN 20 H, Creatinine 1.04, Estim Creat Clear Calc 55.85, Est GFR (MDRD) Non-Af 69, BUN/Creatinine Ratio 18.8, Glucose 97, Calcium 8.4 Microbiology: Microbiology 08/06/25 12:01 Blood Culture (Wb) - Anticubital Left Blood Culture - Preliminary No growth in 48 hours. D/C Instructions DC O2, CPAP, BIPAP Needs Home O2 Discharge instructions: No Meaningful Use Info Meaningful Use Meaningful Use Diagnoses (Choose all that apply): None applicable Discharge Plan Admission Admit Date/Time: 08/05/25 12:13 Attending Provider: Pedro Banegas Primary Care Provider: Husam Khan [employer] Providers: Morgan Dubon; Jim Adams Discharge Orders/Prescriptions Prescriptions: New acetaminophen 500 mg Tablet 1,000 mg PO Q8 Qty: 0 0RF Rx Instructions: Acetaminophen 1 g Q8 hourly for 1 week for pain and then every 8 hourly as needed for pain oxycodone 5 mg Tablet 2.5 mg PO Q6H PRN PRN (Reason: Pain Score 6-10) 3 Days Qty: 7 0RF sennosides-docusate sodium [Stimulant Laxative Plus] 8.6-50 mg Tablet 2 tab PO BID Qty: 0 0RF Continued famotidine [Pepcid] 40 mg tablet 40 mg PO DAILY citalopram 10 mg tablet 10 mg PO DAILY Patient Comments: Take 1 Tablet orally once per Day for 30 Days donepezil 10 mg tablet 10 mg PO DAILY Patient Comments: TAKE 1 TABLET BY MOUTH DAILY WITH SUPPER quetiapine 25 mg tablet 25 mg PO BID cyanocobalamin (vitamin B-12) 1,000 mcg capsule 1,000 mcg PO DAILY ascorbate calcium (vitamin C) 500 mg tablet 500 mg PO DAILY PreserVision AREDS-2 250-90-40-1 mg capsule 1 tab PO BID amlodipine 5 mg tablet 5 mg PO QHS Qty: 90 3RF tamsulosin 0.4 MG capsule 0.4 mg PO QHS albuterol sulfate 90 mcg/actuation HFA aerosol inhaler 2 puff INHALATION Q6H PRN (Reason: shortness of breath or wheezing) carvedilol 3.125 mg tablet 3.125 mg PO BID Qty: 180 3RF Rx Instructions: must administer with a meal/food hydralazine 50 mg tablet 50 mg PO TID Qty: 270 1RF rosuvastatin [Crestor] 20 mg tablet 10 mg PO DAILY Qty: 30 12RF clopidogrel 75 mg tablet 75 mg PO DAILY Qty: 90 4RF Held losartan 50 mg tablet 50 mg PO DAILY Qty: 90 4RF Hold Instructions: Resume after 3 days Referrals / Follow Up: Channing Mckeon MD [Med Staff - Active Staff] - Within 1 Month Husam Khan Chi, MD [Primary Care Provider] - Within 2 Weeks Disposition Disposition (needs filled in before D/C Order can be placed): [facility] Charges/Coding Visit Charges Inpatient E&M: 75643 Disch Hosp >30min
--- NOTE | 2025-08-08 13:05 | CASEMGMT ---
Social Work Physician updated that pt is ready for discharge today.? 7000 convalescent form completed in [facility]. SW met with pt and they are agreeable to discharge plan as stated above.? DCA and bedside nurse notified of discharge. DCA to complete all final arrangements and notifications. Disposition:[facility], skilled level of care ERMIAS Ureña
--- NOTE | 2025-08-08 13:33 | CASEMGMT ---
Discharge Planning Discharge orders, signed med list, and transport time sent to [facility]. Physicians will transport pt by wheelchair at 3-4p. Nursing and SW updated. SW updated pt and his sister (Helena). Geno Baptiste DC Planning Asst.
[2025-08-08 14:03] VITALS: BP 137/65; PULSE 84
[2025-08-08 14:06] VITALS: BP 137/65; PULSE 84; RESP 16; TEMP 36.6; O2SAT 100
== END 2025-08-08 16:25 | disposition skilled nursing facility (03) | DRG 271 ==
LOC: ED 15:01 → MS3 16:46
PROVIDERS: Family Medicine; Admitting Provider Hospitalist; Emergency Provider Emergency Medicine; PCP Family Medicine Geriatric Medicine; Visit Provider Internal Medicine
DX: I72.4 Aneurysm of artery of lower extremity (principal); D62 Acute posthemorrhagic anemia; N13.8 Other obstructive and reflux uropathy; N17.9 Acute kidney failure, unspecified; E86.0 Dehydration; I48.0 Paroxysmal atrial fibrillation; F32.A Depression, unspecified; I10 Essential (primary) hypertension; Z95.3 Presence of xenogenic heart valve; S80.01XA Contusion of right knee, initial encounter; G31.84 Mild cognitive impairment of uncertain or unknown etiology; E78.5 Hyperlipidemia, unspecified; I25.10 Atherosclerotic heart disease of native coronary artery without angina pectoris; K21.9 Gastro-esophageal reflux disease without esophagitis; F41.9 Anxiety disorder, unspecified; R26.2 Difficulty in walking, not elsewhere classified; W19.XXXA Unspecified fall, initial encounter; R53.81 Other malaise; N40.1 Benign prostatic hyperplasia with lower urinary tract symptoms; Z79.82 Long term (current) use of aspirin; Z79.02 Long term (current) use of antithrombotics/antiplatelets; Z79.899 Other long term (current) drug therapy; Z87.891 Personal history of nicotine dependence; Z95.1 Presence of aortocoronary bypass graft; E66.3 Overweight; Z68.29 Body mass index [BMI] 29.0-29.9, adult
CPT/HCPCS: 36200; 36245; 36415; 37226; 37252; 71045; 75625; 75710; 80048; 80053; 81001; 82728; 83540; 83550; 83605; 85025; 85027; 87040; 93005; 94668; 97116; 97162; 97166; 97530; 97535; 99152; 99153; 99285; C1725; C1753; C1760; C1769; C1874; C1894; Q9967; A4216; C1887

== ENCOUNTER → 2025-08-11 | Outpatient (CLI) | payer MEDICARE, OTHER, SELFPAY ==
--- NOTE | 2025-08-11 13:21 | ECHOCS_ITS ---
Reason For Study Reason For Study: MURMUR Procedure This was a 2D Doppler, Color Flow transthoracic echocardiogram. The study was technically difficult. Suboptimal imaging windows. Exam performed in department. Left Ventricle Normal LV size. Left ventricular systolic function is normal. The left ventricular ejection fraction is 55 %. No regional wall motion abnormalities noted. Right Ventricle Normal RV size. Normal systolic function. Atria The left atrium is moderately enlarged. Normal right atrium. Mitral Valve There is moderate mitral annular calcification. Tricuspid Valve Normal tricuspid valve. Aortic Valve The aortic valve is not well visualized. Pulmonic Valve Normal pulmonic valve. Great Vessels Mildly dilated aortic root. The pulmonary artery is normal size. Inferior vena cava collapse with respiration. Pericardium/Pleural No pericardial effusion. Medication 22 gauge I.V. with prn adaptor inserted into left arm. Diluted definity 2.0ml given slow IV push to enhance endocardial definition. MMode/2D Measurements & Calculations LVIDd: 4.3 cm IVSd: 1.1 cm Ao root diam: 3.9 cm LVIDs: 2.8 cm LVPWd: 1.1 cm FS: 34.6 % LAV(MOD-bp): 86.1 ml LVAd ap4: 28.6 cm2 LVAd ap2: 28.1 cm2 LAV(MOD-bp) Indexed: 42.6 ml/m2 LVLd ap4: 8.4 cm LVLd ap2: 8.7 cm LAV(MOD-sp2): 82.4 ml EDV(MOD-sp4): 81.0 ml EDV(MOD-sp2): 72.9 ml LAV(MOD-sp4): 89.4 ml EDV(sp4-el): 82.5 ml EDV(sp2-el): 76.8 ml LVAs ap4: 18.9 cm2 LVAs ap2: 15.6 cm2 LVLs ap4: 7.7 cm LVLs ap2: 6.7 cm ESV(MOD-sp4): 39.3 ml ESV(MOD-sp2): 30.3 ml ESV(sp4-el): 39.8 ml ESV(sp2-el): 31.1 ml EF(MOD-sp4): 51.5 % EF(MOD-sp2): 58.5 % EF(sp4-el): 51.8 % SV(MOD-sp4): 41.8 ml SV(MOD-sp2): 42.7 ml SV(sp4-el): 42.8 ml SI(MOD-sp4): 20.7 ml/m2 SI(MOD-sp2): 21.1 ml/m2 LA A4 area: 25.5 cm2 LA dimension(2D): 4.3 cm RA A4 area: 16.5 cm2 TAPSE: 1.8 cm Doppler Measurements & Calculations MV E max mindy: 133.2 cm/sec Ao V2 max: 188.8 cm/sec LV V1 max: 104.5 cm/sec Ao max P.4 mmHg LV V1 max P.4 mmHg Ao V2 mean: 136.5 cm/sec LV V1 mean P.0 mmHg Ao mean P.3 mmHg LV V1 mean: 65.7 cm/sec Ao V2 VTI: 30.7 cm LV V1 VTI: 17.4 cm AV (velocity ratio): 0.57 ECHO/Echo Complete W/ Contrast Interpretation Summary Normal LV size. Left ventricular systolic function is normal. The left ventricular ejection fraction is 55 %. Mildly dilated aortic root. Contrast injection was performed. Ordering Physician: La Hernández Referring Physician: Husam Khan Chi Performed By: Shannon Alves RDCS, RVT
== END | disposition home or self-care (01) ==
PROVIDERS: PCP Family Medicine Geriatric Medicine; Referring Provider Physician Assistant Medical; Visit Provider Physician Assistant Medical
DX: Z95.2 Presence of prosthetic heart valve (principal)
CPT/HCPCS: 93306; Q9957; A4216; C8929

== ENCOUNTER 2025-08-24 09:28 | Outpatient (CLI) | payer MEDICARE, OTHER, SELFPAY ==
[2025-08-24 09:50] VITALS: BP 117/56; PULSE 93; RESP 14; TEMP 35.9; O2SAT 96; BMI 27.0
[2025-08-24 10:18] VITALS: BP 115/67; PULSE 87; RESP 16; TEMP 36.1
[2025-08-24 11:42] VITALS: BP 128/69; PULSE 87; RESP 14; TEMP 35.7; O2SAT 98
== END 2025-08-24 23:59 | disposition home or self-care (01) ==
LOC: MEDOUTP 09:29
PROVIDERS: PCP Family Medicine Geriatric Medicine; Referring Provider Nurse Practitioner Adult Health; Visit Provider Nurse Practitioner Adult Health
DX: D64.9 Anemia, unspecified (principal); J18.9 Pneumonia, unspecified organism
CPT/HCPCS: 36430; 86850; 86900; 86901; P9016; A4216

== ENCOUNTER → 2025-09-01 | Outpatient (CLI) | payer MEDICARE, OTHER, SELFPAY | END | disposition home or self-care (01) | LOC: CVS 13:49 | PROVIDERS: PCP Family Medicine Geriatric Medicine; Referring Provider Physician Assistant; Visit Provider Physician Assistant | DX: Z48.812 Encounter for surgical aftercare following surgery on the circulatory system (principal); I73.9 Peripheral vascular disease, unspecified; Z95.820 Peripheral vascular angioplasty status with implants and grafts | CPT/HCPCS: 93922; 93926 ==

== ENCOUNTER → 2025-09-11 05:00 | Outpatient (REF) | payer MEDICARE, SELFPAY ==
[2025-09-11 08:18] LABS: Hematocrit 26.4 % (40-54); Hemoglobin 8.0 g/dL (13.0-16.5); Mean Corp Hgb Conc 30.3 g/dL (32-36); Mean Corpuscular Volume 84.6 fL (80-94); Mean Platelet Vol. 8.9 fl (6.2-12.0); Platelet Count 229 K/mm3 (150-450); RBC Distribution Width CV 18.6 % (11.6-14.6); RBC Distribution Width SD 54.8 fl (35.1-43.9); Red Blood Count 3.12 M/mm3 (4.6-6.2); White Blood Count 13.6 K/mm3 (4.4-11.0)
[2025-09-11 08:32] LABS: Anion Gap 10 (5-15); BUN 23 mg/dL (4-19); BUN/Creat Ratio 20.8 RATIO (10-20); Calcium,Total 8.1 mg/dL (7.6-11.0); Carbon Dioxide 28.7 mmol/L (21.0-32.0); Chloride 101 mmol/L (98-108); Glucose 104 mg/dL (70-99); Potassium 3.7 mmol/L (3.3-5.1)
== END ==
LOC: OLS.WCC 05:00
PROVIDERS: PCP Family Medicine Geriatric Medicine; Visit Provider Family Medicine
DX: I10 Essential (primary) hypertension (principal); Z79.899 Other long term (current) drug therapy
CPT/HCPCS: 36415; 80048; 85027

== ENCOUNTER → 2025-09-18 | Outpatient (REF) | payer MEDICARE, OTHER, SELFPAY ==
--- OUTSIDE RECORDS SUMMARY | 2025-09-18 03:35 | XMS RPT_ITS | CCD ---
Author Organization [facility] Care Team Providers Care Topographical Field Assistant Name Role Phone VALDEZ LANDIS Referring Unavailable VALDEZ LANDIS Primary Care Unavailable Felipe Gonzáles Attending [...] ble Dr. Scott Lobo Attending Provider Dr. Goeffrey Garza Attending Provider Dr. Husam Khan Chi Primary Care Provider Dr. Husam Khan Chi Referring Provider Dr. Husam Khan MD, Chi Primary Care Provider Dr. Husam Khan MD, Chi Attending Provider Dr. Geoffrey Garza MD Attending Provider Dr. Geoffrey Garza MD Referring Provider Bill ZAMARRIPA, Dr. Husam Harrington Primary Care Provider Bill ZAMARRIPA, Dr. Husam Harrington Referring Provider La Brennan Attending Provider Bill ZAMARRIPA, Dr. Husam Harrington Attending Provider Mitchell LAGOS, Dr. Preciado Emergency Provider Mike ZAMARRIPA, Dr. Snell Attending Provider Mitchell LAGOS, Dr. Preciado Attending Provider Mike ZAMARRIPA, Dr. Snell Referring Provider Mike ZAMARRIPA, Dr. Snell Other Provider Kd ZAMARRIPA, Dr. Jean Emergency Provider Kd ZAMARRIPA, Dr. Jean Emergency Provider Ling LAGOS, Dr. Mora Admit Provider Ling LAGOS, Dr. Mora Attending Provider Ling LAGOS, Dr. Mora Other Provider Bassam ZAMARRIPA, Dr. Vasquez Attending Provider Bryan ZAMARRIPA, Dr. Jim Hilliard Other Provider Bryan ZAMARRIPA, Dr. Jim Hilliard Attending Provider Bassam ZAMARRIPA, Dr. Vasquez Other Provider Greg ZAMARRIPA, Dr. Hale Attending Physician Greg ZAMARRIPA, Dr. Hale Referring Provider Bill ZAMARRIPA, Dr. Husam Harrington Primary Care Physician Bill ZAMARRIPA, Dr. Husam Harrington Referring Provider La Brennan Attending Physician Bill ZAMARRIPA, Dr. Husam Harrington Attending Physician Mike ZAMARRIPA, Dr. Snell Attending Physician Dr. Ilana Medrano DO Attending Physician Mitchell LAGOS, Dr. Preciado Emergency Department Physi patricia Mike ZAMARRIPA, Dr. Snell Referring Provider Mike ZAMARRIPA, Dr. Snell Nurse Practitioner Kd ZAMARRIPA, Dr. Jean Emergency Department Phys ician Ling LAGOS, Dr. Moar Admitting Physician Ling LAGOS, Dr. Mora Attending Physician Ling LAGOS, Dr. Mora Nurse Practitioner Bassam ZAMARRIPA, Dr. Vasquez Attending Physician Bryan ZAMARRIPA, Dr. Jim Hilliard Nurse Practitioner Bryan ZAMARRIPA, Dr. Jim Hilliard Attending Physician Bassam ZAMARRIPA, Dr. Vasquez Nurse Practitioner Trixie Pang MD Attending Physician Unavail able La Brennan Referring Provider Bird ZAMARRIPA, Dr. Marcum Nurse Practitioner Hina ZAMARRIPA, Dr. Grayson Attending Physician Venecia Qureshi Attending Physician Silvino RECREATIONAL THERAPIST-C, Serene Attending Physician Tickton RECREATIONAL THERAPIST-C, Serene Referring Provider Trixie Askew Attending Unavailabl e Bill, Husam Chi Primary Care Unavailable Morgan Dubon Admitting Unavailable Pedro Banegas Attending Unavailable Bill, Husam Chi Primary Care Unavailable Morgan Dubon Consulting Unavailable Jim Adams Consulting Unavailable Bill, Husam Chi Primary Care Unavailable Valdez Angel Attending Unavailable Bill, Husam Chi Primary Care Unavailable Venecia Villar Attending Unavailable Venecia Villar Referring Unavailable Tickton RECREATIONAL THERAPISTSerene Attending Unavailable [place]ton RECREATIONAL THERAPIST, Serene Referring Unavailable Bill, Husam Chi Primary Care Unavailable Morgan Dubon Admitting Unavailable Bill, Husam Chi Primary Care Unavailable Morgan Dubon Consulting Unavailable Morgan Dubon Attending Unavailable Bill, Husam Chi Referring Unavailable Bill, Husam Chi Primary Care Unavailable IsckarusLeroyour Attending Unavailable [place], Channing Attending Unavailable Bill, Husam Chi Referring Unavailable Bill, Husam Chi Primary Care Unavailable [place], Channing Attending Unavailable Mike, Channing Referring Unavailable [place], Channing Consulting Unavailable Bill, Husam Chi Primary Care Unavailable Bill, Husam Chi Referring Unavailable Bill, Husam Chi Attending Unavailable Bill, Husam Chi Primary Care Unavailable Bill, Husam Chi Attending Unavailable Bill, Husam Chi Primary Care Unavailable Bill, Husam Chi Attending Unavailable Bill, Husam Chi Primary Care Unavailable Bill, Husam Chi Primary Care Unavailable ZakiakarusLeroyour Attending Unavailable Isckarus, Mansour Referring Unavailable Oleghe OLS Efewongbe Attending Unavailabl e Bill, Husam Chi Primary Care Unavailable Bill, Husam Chi Primary Care Unavailable Serene Palacios Attending Unavailable Bill, Husam Chi Primary Care Unavailable Bassam, Pedro Attending Unavailable Morgan Dubon Consulting Unavailable Morgan Dubon Admitting Unavailable Jim Adams Consulting Unavailable Bassam, Pedro Consulting Unavailable Jim Adams Attending Unavailable Oleghe OLS, Efewongbe Attending Unavailabl e Bill, Husam Chi Primary Care Unavailable Oleghe OLS, Efewongbe Attending Unavailabl e Bill, Husam Chi Primary Care Unavailable Ilana Medrano Attending Unavailable Bill, Husam Chi Primary Care Unavailable Bill, Husam Chi Primary Care Unavailable La Brennan Attending Unavail able La Brennan Referring Unavail able Oleghe, Efewongbe Consulting Unavailable Bill, Husam Chi Primary Care Unavailable Kenan Santamaria Attending Unavailable Mike, Channing Attending Unavailable Bill, Husam Chi Primary Care Unavailable Villar, Venecia Referring Unavailable [place], Channing Attending Unavailable Bill, Husam Chi Referring Unavailable Bill, Husam Chi Primary Care Unavailable Bill, Husam Chi Referring Unavailable Bill, Husam Chi Primary Care Unavailable Villar Venecia Attending Unavailable Oleghe OLS, Efewongbe Attending Unavailabl e Bill, Husam Chi Primary Care Unavailable Bill, Husam Chi Referring Unavailable Bill, Husam Chi Primary Care Unavailable La Brennan Attending Unavail able [place], Channing Attending Unavailable [place], Channing Referring Unavailable Bill, Husam Chi Primary Care Unavailable Allergies Allergy Classification Reported Allergen(s) Allergy Type Date of Onset Reaction(s) Facility (20 sources) atorvastatin Drug Allergy 01-14-2022 Myalgias [facility] (1 source) atorvastatin Drug Allergy 08-24-2025 [facility] Repository Medications Current Medications Medication Drug Class(es) Dates Sig (Normalized) Sig (Original) acetaminophen 500 mg oral tablet (20 sources) Start: 08-08-2025 Start: 07-28-2019 End: 08-18-2019 Start: 07-28-2019 End: 08-18-2019 take 2 tablets by mouth every six hours as needed for pain Acetaminophen 500 MG tablet Discontinued 1000 mg PO EVERY 6 HOURS NEEDED as needed for Mild Pain (-01/30) 0 July 28, 2019 12:00am August 18, 2019 3:19pm Start: 07-28-2019 End: 08-18-2019 take 1000 mg by mouth every six hours as needed Acetaminophen Discontinued 1000 MG PO EVERY 6 HOURS NEEDED July 28, 2019 12:00am August 18, 2019 3:19pm Start: 07-13-2019 End: 07-28-2019 [id number] 200 actuat albuter ol 0.09 mg/actuat metered dose inhaler (20 sources) beta2-Adrenergic Agonist Start: 08-01-2025 Start: 08-01-2025 Albuterol Sulf ate 90 mcg/actuation HFA aerosol inhaler Active 2 NMA INHALATION EVERY 6 HOURS as needed for shortness of breath or wheezing August 01, 2025 12:00am Start: 07-13-2019 End: 07-28-2019 Start: 07-13-2019 End: 07-28-2019 take 1 mL [...] 13, 2019 12:00am July 28, 2019 8:00pm calcium ascorbate 500 mg ora l tablet (20 sources) Start: 01-13-2022 carvedilol 3.125 mg oral tab let (20 sources) alpha-Adrenergic Leyda, beta-Adrenergic Leyda Start: 03-28-2024 Start: 01-31-2021 End: 03-28-2024 Start: 01-31-2021 End: 02-18-2021 take 1 tablet by mouth twice daily at mealtime Carvedilol (Coreg) 6.25 mg tablet Discontinued 6.25 mg PO TWICE A DAY 180 3 January 31, 2021 1:00am February 18, 2021 3:28pm must administer with a meal/food Start: 01-20-2019 End: 02-01-2019 citalopram 10 mg oral tablet (20 sources) Serotonin Reuptake Inhibitor Start: 02-18-2021 docusate sodium 50 mg / sennosides, mcc 8.6 mg oral tablet (20 sources) Start: 08-08-2025 Start: 08-08-2025 Sennosides-Doc usate Sodium (Stimulant Laxative Plus) 8.6-50 mg Tablet Active 2 {tbl} PO TWICE A DAY 0 0 August 08, 2025 12:00am Start: 07-13-2019 End: 07-28-2019 Start: 07-13-2019 End: 07-28-2019 Sennosides-Docusate Sodium 1 EACH tablet Discontinued 1 {tbl} PO DAILY NEEDED as needed for Constipation July 13, 2019 12:00am July 28, 2019 8:00pm Start: 07-13-2019 End: 07-28-2019 take 1 tablet by mouth once daily as needed Sennosides-Docusate Sodium Discontinued 1 TABLET PO DAILY NEEDED July 13, 2019 12:00am July 28, 2019 8:00pm donepezil hydrochloride 10 m g oral tablet (20 sources) Start: 02-18-2021 famotidine 40 mg oral tablet (20 sources) Histamine-2 Receptor Antagonist Start: 08-10-2020 oxyCODONE hydrochloride 5 mg oral tablet (20 sources) Opioid Agonist Start: 08-08-2025 End: 08-09-2025 Start: 08-17-2019 End: 09-01-2019 Start: 08-17-2019 End: 09-01-2019 take 1 tablet by mouth every six hours as needed for pain Oxycodone 5 mg tablet Discontinued 5 mg PO EVERY 6 HOURS as needed for Pain Score 1-09/01 0 August 17, 2019 12:00am September 01, 2019 3:41pm Start: 07-28-2019 End: 08-05-2019 Start: 07-28-2019 End: 08-05-2019 take 1 tablet by mouth every four hours as needed for pain Oxycodone 5 MG tablet Discontinued 5 mg PO EVERY 4 HOURS NEEDED as needed for Severe Pain (-09/01) 30 7 0 July 28, 2019 August 03, 2019 12:00am August 05, 2019 12:11am 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 Start: 01-20-2019 End: 02-01-2019 QUEtiapine 25 mg oral tablet (20 sources) Atypical Antipsychotic Start: 02-18-2021 Vit C,W-Bh-Wlqbe-Lutei n-Zeaxan (Preservision Areds-2) 250-90-40-1 mg capsule (8 sources) Start: 06-22-2025 take 2 capsules by mouth twice daily Vit C,U-Bj-Kmwjb-L utein-Zeaxan (Preservision Areds-2) 250-90-40-1 mg capsule Active 1 {tbl} PO TWICE A DAY June 22, 2025 12:00am vitamin b12 1 mg oral capsule (20 sources) Vitamin B12 Start: 07-15-2021 (3 sources) Start: 06-22-2025 Completed/Discontinued Medications Medication Drug Class(es) Dates Sig (Normalized) Sig (Original) acetaminophen 325 mg / HYDROcodone bitartrate 5 mg oral tablet (20 sources) Opioid Agonist Start: 09-01-2019 End: 10-05-2019 Start: 09-01-2019 End: 10-05-2019 Hydrocodone-Acetaminophen (N orco) 5-325 mg tablet Discontinued 1 {tbl} PO EVERY 6 HOURS as needed 0 September 01, 2019 12:00am October 05, 2019 12:10pm amiodarone hydrochloride 200 mg oral tablet (20 sources) Antiarrhythmic Start: 07-13-2019 End: 08-15-2019 Start: 07-13-2019 End: 07-28-2019 take 1 tablet by mouth twice daily Amiodarone 200 MG tablet Discontinued 200 mg PO TWICE A DAY July 13, 2019 12:00am July 28, 2019 7:57pm heart amLODIPine 5 mg oral tablet (20 sources) Dihydropyridine Calcium Channel Leyda Start: 11-15-2019 End: 06-22-2025 Start: 11-15-2019 End: 08-21-2020 take 1 tablet by mouth once daily Amlodipine 5 mg tablet Discontinued 5 mg PO DAILY 90 3 January 27, 2020 3:06pm August 21, 2020 12:47pm Start: 01-20-2019 End: 02-01-2019 Start: 01-20-2019 End: 02-01-2019 take 1 tablet by mouth once daily Amlodipine 5 mg tablet Discontinued 5 mg PO DAILY January 20, 2019 1:00am February 01, 2019 3:08pm ascorbic acid 500 mg oral ca psule (20 sources) Vitamin C Start: 08-20-2019 End: 06-15-2020 Start: 07-13-2019 End: 07-28-2019 Start: 07-13-2019 End: 07-28-2019 take 1 capsule by mouth once daily Ascorbic Acid (Vitamin C) 500 MG capsule Discontinued 500 mg PO DAILY July 13, 2019 12:00am July 28, 2019 8:00pm vitamin aspirin 81 mg chewable tablet (20 sources) Platelet Aggregation Inhibitor, Nonsteroidal Anti-inflammatory Drug Start: 07-13-2019 End: 10-07-2019 Start: 07-13-2019 End: 10-07-2019 take 162 mg by mouth once daily Aspirin Discontinued 162 MG PO DAILY July 13, 2019 12:00am October 07, 2019 2:40pm atorvastatin 40 mg oral tabl et (20 sources) HMG-CoA Reductase Inhibitor Start: 07-13-2019 End: 07-03-2020 Start: 07-13-2019 End: 07-03-2020 take 1 tablet by mouth at bedtime Atorvastatin 40 MG tablet Discontinued 40 mg PO AT BEDTIME 30 0 July 28, 2019 8:00pm October 07, 2019 2:44pm cholesterol azithromycin 250 mg oral tab let (10 sources) Macrolide Antimicrobial Start: 07-27-2025 End: 08-04-2025 benzonatate 100 mg oral caps ule (20 sources) Non-narcotic Antitussive Start: 07-28-2019 End: 08-17-2019 bisacodyl 10 mg rectal suppo sitory (20 sources) Stimulant Laxative Start: 07-13-2019 End: 07-28-2019 cefdinir 300 mg oral capsule (10 sources) Cephalosporin Antibacterial Start: 07-27-2025 End: 08-04-2025 Start: 07-27-2025 End: 08-04-2025 Cefdinir 300 mg capsule Disc ontinued 300 mg PO Q12 July 27, 2025 12:00am August 04, 2025 1:20pm cholecalciferol 0.05 mg chew able tablet (20 sources) Vitamin D Start: 01-27-2020 End: 07-03-2020 Start: 02-01-2019 End: 07-28-2019 clopidogrel 75 mg oral table t (20 sources) P2Y12 Platelet Inhibitor Start: 08-16-2020 End: 08-03-2025 codeine phosphate 2 mg/ml / guaiFENesin 20 mg/ml oral solution (10 sources) Opioid Agonist Start: 07-27-2025 End: 08-04-2025 Start: 07-27-2025 End: 08-04-2025 take 1 mL by mouth every six hours as needed for cough Codeine-Guaifenesin 10-100 mg/5 mL liquid Discontinued 10 mL PO EVERY 6 HOURS as needed for cough July 27, 2025 12:00am August 04, 2025 1:20pm dextromethorphan hydrobromid e 2 mg/ml / guaiFENesin 20 mg/ml oral solution (20 sources) Uncompetitive K-mpoipn-R-aspartate Receptor Antagonist, Sigma-1 Agonist Start: 07-28-2019 End: 10-07-2019 Start: 07-28-2019 End: 10-07-2019 take 1 mL by mouth every four hours as needed for cough Dextromethorphan-Guaifenesin 10-100 mg/5 mL syrup Discontinued 10 mL PO Q4H as needed for COUGH August 18, 2019 3:18pm October 07, 2019 2:41pm Start: 07-28-2019 End: 10-07-2019 take 1 mL by mouth every four hours Dextromethorphan-Guaifenesin Discontinue d 10 ML PO Q4H August 18, 2019 3:18pm October 07, 2019 2:41pm doxycycline hyclate 100 mg o ral capsule (20 sources) Tetracycline-class Drug Start: 09-01-2019 End: 10-07-2019 ergocalciferol 0.0625 mg ora l capsule (20 sources) Provitamin D2 Compound Start: 01-27-2020 End: 01-31-2020 ferrous sulfate 325 mg oral tablet (20 sources) Start: 01-13-2022 End: 07-27-2025 Start: 08-20-2019 End: 06-15-2020 Start: 08-20-2019 End: 10-05-2019 take 1 tablet by mouth every other day Ferrous Sulfate 325 MG tablet Discontinued 325 mg PO EVERY OTHER DAY August 20, 2019 12:00am October 05, 2019 12:10pm Start: 03-01-2019 End: 07-28-2019 fluticasone propionate 0.05 mg/actuat metered dose nasal spray (20 sources) Corticosteroid Start: 03-01-2019 End: 07-28-2019 Start: 03-01-2019 End: 07-28-2019 Fluticasone Propionate 1 SPR AY Nasal.Sry Discontinued 1 NMA NASAL DAILY as needed for Congestion March 01, 2019 12:00am July 28, 2019 8:00pm Start: 03-01-2019 End: 07-28-2019 Fluticasone Propionate Disco ntinued 1 SPRAY NASAL DAILY March 01, 2019 12:00am July 28, 2019 8:00pm folic acid 1 mg oral tablet (20 sources) Start: 07-13-2019 End: 07-28-2019 furosemide 20 mg oral tablet (20 sources) Loop Diuretic Start: 10-07-2019 End: 08-10-2020 Start: 10-07-2019 End: 08-10-2020 take 1 tablet by mouth once daily Furosemide 20 mg tablet Discontinued 20 mg PO DAILY June 15, 2020 5:49pm August 10, 2020 11:01am Start: 08-17-2019 End: 10-05-2019 Start: 08-17-2019 End: 10-05-2019 Start: 07-13-2019 End: 07-28-2019 12 hr guaiFENesin 600 mg / pseudoephedrine hydrochloride 60 mg extended release oral tablet (20 sources) alpha-Adrenergic Agonist Start: 01-20-2019 End: 02-01-2019 Start: 01-20-2019 End: 02-01-2019 take 1 tablet [...] sources) Arteriolar Vasodilator Start: 01-14-2022 End: 2025 Start: 02-18-2021 End: 01-14-2022 Start: 10-26-2019 End: 08-10-2020 Start: 10-26-2019 End: 05-28-2020 take 1 tablet by mouth twice daily Hydralazine 25 mg tablet Discontinued 25 mg PO TWICE A DAY October 26, 2019 1:00am May 28, 2020 4:26pm Start: 10-17-2019 End: 10-26-2019 Start: 09-01-2019 End: 10-17-2019 lactobacillus acidophilus 50 [id number] unt oral capsule (20 sources) Start: 07-13-2019 End: 07-28-2019 Start: 07-13-2019 End: 07-28-2019 Lactobacillus Acidophilus 1 EACH capsule Discontinued 1 NMA PO TWICE A DAY July 13, 2019 12:00am July 28, 2019 8:00pm probiotic Start: 07-13-2019 End: 07-28-2019 take 1 capsule by mouth twice daily Lactobacillus Acidophilus Discontinued 1 CAP PO TWICE A DAY July 13, 2019 12:00am July 28, 2019 8:00pm losartan potassium 50 mg ora l tablet (20 sources) Angiotensin 2 Receptor Leyda Start: 08-24-2025 Start: 08-15-2019 End: 08-03-2025 Start: 08-15-2019 End: 02-10-2023 meloxicam 7.5 mg oral tablet (20 sources) Nonsteroidal Anti-inflammatory Drug Start: 02-18-2021 End: 05-22-2025 menthol 0.0044 mg/mg / zinc oxide 0.2 mg/mg topical ointment (20 sources) Start: 07-28-2019 End: 08-18-2019 Start: 07-28-2019 End: 08-18-2019 Menthol-Zinc Oxide Discontin ued 1 APPLIC TOPICAL 0600,0 July 28, 2019 12:00am August 18, 2019 3:19pm metoprolol tartrate 50 mg or al tablet (20 sources) beta-Adrenergic Leyda Start: 07-28-2019 End: 01-31-2021 Start: 07-28-2019 End: 01-31-2021 Start: 07-28-2019 End: 01-31-2021 Start: 07-28-2019 End: 08-15-2019 take 1 tablet by mouth every eight hours Metoprolol Tartrate 50 MG tablet Discontinued 50 mg PO EVERY 8 HOURS 90 0 July 28, 2019 12:00am August 15, 2019 1:38pm Start: 07-13-2019 End: 07-28-2019 omeprazole 20 mg delayed rel ease oral capsule (20 sources) Proton Pump Inhibitor Start: 12-13-2019 End: 07-03-2020 pantoprazole 40 mg delayed r elease oral tablet (20 sources) Proton Pump Inhibitor Start: 09-01-2019 End: 12-13-2019 polyethylene glycol 3350 170 00 mg powder for oral solution (20 sources) Osmotic Laxative Start: 02-18-2019 End: 07-03-2020 polysaccharide iron complex 150 mg oral capsule (20 sources) Start: 07-28-2019 End: 08-17-2019 microencapsulated potassium chloride 20 meq extended release oral tablet (20 sources) Start: 07-13-2019 End: 07-28-2019 predniSONE 10 mg oral tablet (10 sources) Start: 07-27-2025 End: 08-04-2025 Start: 07-27-2025 End: 08-04-2025 Prednisone 10 mg tablet Disc ontinued 10 mg PO .COMPLEX July 27, 2025 12:00am August 04, 2025 1:20pm 10 mg orally see taper; rosuvastatin calcium 20 mg o ral tablet (20 sources) HMG-CoA Reductase Inhibitor Start: 07-03-2020 End: 07-14-2025 Start: 07-03-2020 End: 07-14-2025 Start: 07-03-2020 End: 08-21-2020 take 1 tablet by mouth once daily Rosuvastatin (Crestor) 20 mg tablet Discontinued 20 mg PO DAILY 30 July 03, 2020 12:00am August 21, 2020 1:17pm Start: 02-01-2019 End: 02-18-2019 simvastatin 20 mg oral table t (20 sources) HMG-CoA Reductase Inhibitor Start: 01-20-2019 End: 02-01-2019 Start: 01-20-2019 End: 02-01-2019 take 1 tablet by mouth at bedtime Simvastatin 20 mg tablet Discontinued 20 mg PO AT BEDTIME January 20, 2019 1:00am February 01, 2019 2:18pm sodium chloride 0.111 meq/ml nasal spray (20 sources) Start: 01-20-2019 End: 02-01-2019 Start: 01-20-2019 End: 02-01-2019 Sodium Chloride (Saline Mist ) 0.65 % aerosol,spray Discontinued 1 NMA INTRANASAL [...] sources) alpha-Adrenergic Leyda Start: 07-13-2019 End: 08-20-2019 ubidecarenone 100 mg oral ca psule (20 sources) Start: 05-28-2020 End: 06-15-2020 Problems Active Problems Problem Classification Problem Date Documented Date Episodic/Chronic Acute and unspecified renal failure (20 sources) Acute kidney failure with tubular necrosis; Translations: [Injury of kidney] Onset: 9 08-17-2019 Episodic Aortic; peripheral; and visceral artery aneurysms (20 sources) Pseudoaneurysm; 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 Rivers; Chronic kidney disease (2 sources) Chronic kidney disease, stage 3 (moderate); Translations: [Chronic kidney disease, stage 3 (moderate)] Onset: 01-12-201 9 Chronic Coma; stupor; and brain damage (6 sources) Coma scale, best motor response, obeys commands, at hospital admission; Translations: [Coma scale, eyes open, spontaneous, at hospital admission] Onset: 9 Conduction disorders (20 sources) Left bundle-branch block, unspecified; Translations: [Left bundle branch block] Onset: 9 07-13-2019 Chronic Coronary atherosclerosis and other heart disease (20 sources) Other forms of acute ischemic heart disease; Translations: [Coronary arteriosclerosis] Onset: 9 Chronic Comment on above: [address] [facility] Trife cta pericardial prosthesis; CABG X2 with HARRINGTON to LAD, reverse SVG to ramus intermedius, and exclusion of left atrial appendage with 35 mm Atricure clip (pt poor anticoag candidate d/t hematuria). per Dr. Wayne Rivers 07/04/19 @ [facility] Status post CABG x2 on 07/04/2019 at [facility] with Dr. Rivers; Deficiency and other anemia (20 sources) Iron deficiency anemia due to blood loss; Translations: [Iron deficiency anemia secondary to blood loss (chronic)] 07-15-2021 Chronic Deficiency and other anemia (8 sources) Iron deficiency anemia secondary to blood loss (chronic); Translations: [Iron deficiency anemia secondary to blood loss (chronic)] Onset: 5 Chronic Deficiency and other anemia (20 sources) Anemia; Translations: [Anemia, unspecified] 07-03-2020 Episodic Comment on above: Hgb 9.7 on 01/20/19, ord by Dr. Howell (PCP) Deficiency and other anemia (1 source) Anemia, unspecified; Translations: [Anemia, unspecified] Onset: 5 Episodic Diseases of white blood cells (2 sources) Elevated white blood cell count, unspecified; Translations: [Elevated white blood cell count, unspecified] Onset: 9 Chronic Disorders of lipid metabolism (20 sources) Hyperlipidemia, unspecified; Translations: [Hyperlipidemia] Onset: 9 Chronic Esophageal disorders (20 sources) Gastro-esophageal reflux disease with esophagitis; Translations: [Gastroesophageal reflux disease with esophagitis] 12-15-2019 Chronic Essential hypertension (20 sources) Essential hypertension; Translations: [Essential (primary) hypertension] Onset: 5 Chronic Fluid and electrolyte disorders (6 sources) Hypokalemia; Translations: [Dehydration] Onset: 9 Episodic Genitourinary symptoms and ill-defined conditions (20 sources) Blood in urine; Translations: [Hematuria, unspecified] [...] hematuria). per Dr. Wayne Rivers 07/04/19 @ [facility] [address] [facility] Trife cta pericardial prosthesis per Dr. Wayne Rivers 07/04/19 @ [facility] Severe per echo 12/06 @ [facility] Mild per echo 9 done @ [facility] by Dr. José Miguel Gutierrez. No regurgitation. Hyperplasia of prostate (20 sources) Benign prostatic hyperplasia; Translations: [Benign prostatic hyperplasia without lower urinary tract symptoms] 07-13-2019 Chronic Hypertension with complications and secondary hypertension (2 sources) Hypertensive chronic kidney disease with stage 1 through stage 4 chronic kidney disease, or unspecified chronic kidney disease; Translations: [Hypertensive chronic kidney disease w stg 1-4/unsp chr kdny] Onset: 9 Chronic Intestinal obstruction without hernia (20 sources) Intestinal obstruction; Translations: [Unspecified intestinal obstruction, unspecified as to partial versus complete obstruction] 08-17-2019 Episodic Comment on above: Repaired at [facility] ty 12/04/18 Malaise and fatigue (20 sources) Other malaise; Translations: [Asthenia] Onset: 9 07-13-2019 Episodic Neoplasms of unspecified nature or uncertain behavior (20 sources) Monoclonal gammopathy of uncertain significance; Translations: [Monoclonal gammopathy] Onset: 5 Chronic Nutritional deficiencies (20 sources) Vitamin D deficiency, unspecified; Translations: [Vitamin D deficiency] Onset: 9 07-13-2019 Chronic Other aftercare (2 sources) Surgical follow-up; Translations: [Encounter for surgical aftercare following surgery on the circulatory system] 08-24-2025 Episodic Other aftercare (2 sources) Encounter for surgical aftercare following surgery on the circulatory system; Translations: [Encounter for surgical aftercare following surgery on the circulatory system] Onset: 5 Episodic Other circulatory disease (19 sources) H/O: heart disorder; Translations: [Personal history of other diseases of the circulatory system] 08-17-2019 Episodic Other circulatory disease (3 sources) History of aortic valve stenosis; Translations: [Personal history of other diseases of the circulatory system] 08-17-2019 Episodic Other connective tissue disease (11 sources) Pain in right lower limb; Translations: [Pain in right leg] 08-04-2025 Episodic Other connective tissue disease (1 source) Pain in right leg; Translations: [Pain in right leg] Onset: 5 Episodic Other hereditary and degenerative nervous system conditions (2 sources) Mild cognitive impairment, so stated; Translations: [Mild cognitive impairment, so stated] Onset: 9 Chronic Other lower respiratory disease (1 source) Other specified respiratory disorders; Translations: [Other specified respiratory disorders] Onset: 5 Episodic Other nervous system disorders (2 sources) Metabolic encephalopathy; Translations: [Metabolic encephalopathy] Onset: 9 Chronic Other nervous system disorders (20 sources) Metabolic encephalopathy; Translations: [Metabolic encephalopathy] 08-17-2019 Chronic Other non-traumatic joint disorders (11 sources) Pain in right knee; Translations: [Acute pain of right knee] Onset: 5 07-27-2025 Episodic Other nutritional; endocrine; and metabolic disorders (2 sources) Hypomagnesemia; Translations: [Hypomagnesemia] Onset: 9 Chronic Other nutritional; endocrine; and metabolic disorders (2 sources) Hypocalcemia; Translations: [Hypocalcemia] Onset: 9 Chronic Other screening for suspected conditions (not mental disorders or infectious disease) (20 sources) Prolonged QT interval; Translations: [Abnormal electrocardiogram [ECG] [EKG]] 07-13-2019 Episodic Other upper respiratory disease (20 sources) Allergic rhinitis; Translations: [Allergic rhinitis, unspecified] 07-13-2019 Chronic Peripheral and visceral atherosclerosis (4 sources) Peripheral vascular disease, unspecified; Translations: [Peripheral arterial disease] Onset: 5 08-24-2025 Chronic Peripheral and visceral atherosclerosis (2 sources) [...] edema; Translations: [Localized edema] Onset: 5 Episodic Past or Other Problems Problem Classification Problem Date Documented Date Episodic/Chronic Abdominal hernia (20 sources) Other and unspecified ventral hernia with obstruction, without gangrene; Translations: [Umbilical hernia with obstruction, without gangrene] Onset: 12-04-2018 07-13-2019 Episodic Comment on above: [facility] Coronary atherosclerosis and other heart disease (1 source) Presence of aortocoronary bypass graft; Translations: [Aortocoronary bypass status] Onset: 06-23-2019 03-18-2023 Episodic Other aftercare (1 source) Encounter for adjustment and management of vascular access device; Translations: [Encounter for adjustment and management of vascular access device] Onset: 05-22-2025 Episodic Residual codes; unclassified (20 sources) History of cardiac catheterization; Translations: [Other [...] Aortic Valve Stenosis - severe per [facility] 4/10/19 per [facility] @ [facility] Results Test Name Value Interpretation Reference Range Facility Basic Metabolic Profile (BMP )on 09-13-2025 BUN Normal 4-19 [facility] Comment on above: Order Comment: 125.2 Result Comment: LABS WERE DONE 09/11 DOES NOT NEED REPEATED 09/13 PER NURSE JOSEP CASTILLO Performed By: #### L 503.6005 #### [facility] [address] [place], [address] BUN/CRE Normal - [facility] Comment on above: Order Comment: 125.2 Result Comment: LABS WERE DONE 09/11 DOES NOT NEED REPEATED 09/13 PER NURSE FARAH AND DR CASTILLO Performed By: #### L 503.6005 #### [facility] [address] [place], [address] Calcium Normal 7.6-11.0 [facility] Comment on above: Order Comment: 125.2 Result Comment: LABS WERE DONE 09/11 DOES NOT NEED REPEATED 09/13 PER NURSE JOSEP CASTILLO Performed By: #### L 503.6005 #### [facility] [address] [place], [address] CL Normal 98-108 [facility] Comment on above: Order Comment: 125.2 Result Comment: LABS WERE DONE 09/11 DOES NOT NEED REPEATED / PER NURSE JOSEP CASTILLO Performed By: #### L 503.6005 #### [facility] [address] [place], [address] CO2 Normal 21.0-32.0 [facility] Comment on above: Order Comment: 125.2 Result Comment: LABS WERE DONE 09/11 DOES NOT NEED REPEATED / PER NURSE JOSEP CASTILLO Performed By: #### L 503.6005 #### [facility] [address] [place], [address] CREAT,SERUM Normal 0.70-1.20 [facility] Comment on above: Order Comment: 125.2 Result Comment: LABS WERE DONE 09/11 DOES NOT NEED REPEATED 10/22 PER NURSE FARAH AND DR CASTILLO Performed By: #### L 503.6005 #### [facility] [address] [place], [address] eGFR Normal >60 [facility] Comment on above: Order Comment: 125.2 Result Comment: LABS WERE DONE 09/11 DOES NOT NEED REPEATED 10/22 PER NURSE FARAH AND DR CASTILLO Performed By: #### L 503.6005 #### [facility] [address] [place], [address] GAP Normal 5-15 [facility] Comment on above: Order Comment: 125.2 Result Comment: LABS WERE DONE 09/11 DOES NOT NEED REPEATED 10/22 PER NURSE FARAH AND DR CASTILLO Performed By: #### L 503.6005 #### [facility] [address] [place], [address] GLU Normal 70-99 [facility] Comment on above: Order Comment: 125.2 Result Comment: LABS WERE DONE 09/11 DOES NOT NEED REPEATED 10/22 PER NURSE FARAH AND DR CASTILLO Performed By: #### L 503.6005 #### [facility] [address] [place], [address] Potassium Normal 3.3-5.1 [facility] Comment on above: Order Comment: 125.2 Result Comment: LABS WERE DONE 09/11 DOES NOT NEED REPEATED 10/22 PER NURSE JOSEP CASTILLO Performed By: #### L 503.6005 #### [facility] [address] [place], [address] Basic Metabolic Profile (BMP) Normal 133-145 [facility] Comment on above: Order Comment: 125.2 Result Comment: LABS WERE DONE 09/11 DOES NOT NEED REPEATED 10/22 PER NURSE JOSEP CASTILLO Performed By: #### L 503.6005 #### [facility] [address] [place], [address] CBC W/Diff, Automatedon 10-2 2-2025 Absolute Neut Normal 2.0-7.7 [facility] Comment on above: Order Comment: 125.2 Result Comment: LABS WERE DONE 09/11 DOES NOT NEED REPEATED 10/ PER NURSE FARAH AND DR CASTILLO Performed By: #### L 503.6005 #### [facility] [address] [place], [address] HCT Normal 40-54 [facility] Comment on above: Order Comment: 125.2 Result Comment: LABS WERE DONE 09/11 DOES NOT NEED REPEATED 10/22 PER NURSE FARAH AND DR CASTILLO Performed By: #### L 503.6005 #### [facility] [address] [place], [address] HGB Normal 13.0-16.5 [facility] Comment on above: Order Comment: 125.2 Result Comment: LABS WERE DONE 09/11 DOES NOT NEED REPEATED 10/22 PER NURSE FARAH AND DR CASTILLO Performed By: #### L 503.6005 #### [facility] [address] [place], [address] MCH Normal 27.0-32.0 [facility] Comment on above: Order Comment: 125.2 Result Comment: LABS WERE DONE 09/11 DOES NOT NEED REPEATED 10/22 PER NURSE JOSEP CASTILLO Performed By: #### L 503.6005 #### [facility] [address] [place], [address] MCHC Normal 32-36 [facility] Comment on above: Order Comment: 125.2 Result Comment: LABS WERE DONE 09/11 DOES NOT NEED REPEATED 10/22 PER NURSE JOSEP CASTILLO Performed By: #### L 503.6005 #### [facility] [address] [place], [address] MCV Normal 80-94 [facility] Comment on above: Order Comment: 125.2 Result Comment: LABS WERE DONE 09/11 DOES NOT NEED REPEATED 10/22 PER NURSE JOSEP CASTILLO Performed By: #### L 503.6005 #### [facility] [address] [place], [address] NEUT% Normal 47-70 [facility] Comment on above: Order Comment: 125.2 Result Comment: LABS WERE DONE 09/11 DOES NOT NEED REPEATED 10/22 PER NURSE FARAH AND DR CASTILLO Performed By: #### L 503.6005 #### [facility] [address] [place], [address] PLT Normal 150-450 [facility] Comment on above: Order Comment: 125.2 Result Comment: LABS WERE DONE 09/11 DOES NOT NEED REPEATED 10/22 PER NURSE FARAH AND DR CASTILLO Performed By: #### L 503.6005 #### [facility] [address] [place], [address] RBC Normal 4.6-6.2 [facility] Comment on above: Order Comment: 125.2 Result Comment: LABS WERE DONE 09/11 DOES NOT NEED REPEATED 10/22 PER NURSE JOSEP CASTILLO Performed By: #### L 503.6005 #### [facility] [address] [place], [address] RDW CV Normal 11.6-14.6 [facility] Comment on above: Order Comment: 125.2 Result Comment: LABS WERE DONE 09/11 DOES NOT NEED REPEATED 10/22 PER NURSE JOSEP CASTILLO Performed By: #### L 503.6005 #### [facility] [address] [place], [address] RDW SD Normal 35.1-43.9 [facility] Comment on above: Order Comment: 125.2 Result Comment: LABS WERE DONE 09/11 DOES NOT NEED REPEATED 10/22 PER NURSE JOSEP CASTILLO Performed By: #### L 503.6005 #### [facility] [address] [place], [address] WBC Normal 4.4-11.0 [facility] Comment on above: Order Comment: 125.2 Result Comment: LABS WERE DONE 09/11 DOES NOT NEED REPEATED 09/[address]SE GAGAN AND DR CASTILLO Performed By: #### L 503.6005 #### [facility] [address] [place], [address] Basic Metabolic Profile (BMP )on 09-11-2025 BUN/CRE 20.8 RATIO High 09-11 [facility] Comment on above: Order Comment: 125.2 Performed By: #### L 503.6005 #### [facility] [address] [place], [address] Calcium [Mass/Vol] 8.1 mg/dL Normal 7.6-11.0 [facility] Comment on above: Order Comment: 125.2 Performed By: #### L 503.6005 #### [facility] [address] [place], [address] Chloride [Moles/Vol] 101 mmol/L Normal 98-108 [facility] Comment on above: Order Comment: 125.2 Performed By: #### L 503.6005 #### [facility] [address] [place], [address] CO2 [Moles/Vol] 28.7 mmol/L Normal 21.0-32.0 [facility] Comment on above: Order Comment: 125.2 Performed By: #### L 503.6005 #### [facility] [address] [place], [address] Creatinine [Mass/Vol] 1.12 mg/dL Normal 0.70-1.20 [facility] Comment on above: Order Comment: 125.2 Performed By: #### L 503.6005 #### [facility] [address] [place], [address] GAP 10 Normal 5-15 [facility] Comment on above: Order Comment: 125.2 Performed By: #### L 503.6005 #### [facility] [address] [place], [address] GFR/1.73 sq M.predicted among non-blacks MDRD (S/P/Bld) [Vol rate/Area] 64 mL/min/{1.73_m2} Normal >60 [facility] Comment on above: Order Comment: 125.2 Result Comment: mL/m in/1.73m2 CKD-EPI Creatinine Equation (2020) Performed By: #### L 503.6005 #### [facility] [address] [place], [address] Glucose [Mass/Vol] 104 mg/dL High 70-99 [facility] Comment on above: Order Comment: 125.2 Performed By: #### L 503.6005 #### [facility] [address] [place], [address] Potassium [Moles/Vol] 3.7 mmol/L Normal 3.3-5.1 [facility] Comment on above: Order Comment: 125.2 Performed By: #### L 503.6005 #### [facility] [address] [place], [address] Sodium [Moles/Vol] 140 mmol/L Normal 133-145 [facility] Comment on above: Order Comment: 125.2 Performed By: #### L 503.6005 #### [facility] [address] [place], [address] Urea nitrogen [Mass/Vol] 23 mg/dL High 4-19 [facility] Comment on above: Order Comment: 125.2 Performed By: #### L 503.6005 #### [facility] [address] [place], [address] CBC-Complete Blood Cnt No Di ffon 09-11-2025 Erythrocyte distribution width (RBC) [Ratio] 18.6 % High 11.6-14.6 [facility] Comment on above: Order Comment: 125.2 Performed By: #### L 503.6005 #### [facility] [address] [place], [address] Hematocrit (Bld) [Volume fraction] 26.4 % Low 40-54 [facility] Comment on above: Order Comment: 125.2 Performed By: #### L 503.6005 #### [facility] [address] [place], [address] Hemoglobin (Bld) [Mass/Vol] 8.0 g/dL Low 13.0-16.5 [facility] Comment on above: Order Comment: 125.2 Performed By: #### L 503.6005 #### [facility] [address] [place], [address] MCH (RBC) [Entitic mass] 25.6 pg Low 27.0-32.0 [facility] Comment on above: Order Comment: 125.2 Performed By: #### L 503.6005 #### [facility] [address] [place], [address] MCHC (RBC) [Mass/Vol] 30.3 g/dL Low 32-36 [facility] Comment on above: Order Comment: 125.2 Performed By: #### L 503.6005 #### [facility] [address] [place], [address] MCV (RBC) [Entitic vol] 84.6 fL Normal 80-94 [facility] Comment on above: Order Comment: 125.2 Performed By: #### L 503.6005 #### [facility] [address] [place], [address] Platelet mean volume (Bld) [Entitic vol] 8.9 fL Normal 6.2-12.0 [facility] Comment on above: Order Comment: 125.2 Performed By: #### L 503.6005 #### [facility] [address] [place], [address] Platelets (Bld) [#/Vol] 229 10*3/uL Normal 150-450 [facility] Comment on above: Order Comment: 125.2 Performed By: #### L 503.6005 #### [facility] [address] [place], [address] RBC (Bld) [#/Vol] 3.12 10*6/uL Low 4.6-6.2 [facility] Comment on above: Order Comment: 125.2 Performed By: #### L 503.6005 #### [facility] [address] [place], [address] RDW SD 54.8 fl High 35.1-43.9 [facility] Comment on above: Order Comment: 125.2 Performed By: #### L 503.6005 #### [facility] [address] [place], [address] WBC (Bld) [#/Vol] 13.6 10*3/uL High 4.4-11.0 [facility] Comment on above: Order Comment: 125.2 Performed By: #### L 503.6005 #### [facility] [address] [place], [address] Ankle Brachial Indexon 09-01 Ankle Brachial Index [facility] [address] [place] [address] Ankle Brachial Index 09/01/25 1356 MR#: [id number] Acct: [id number] Name: ELIAS SHAH Rep #: [id number] : 1940 85 From: Channing Mckeon MD Attending Dr: MAHENDRA Palma Status: REG CLI Ordering Dr: Venecia Villar Date: 09/01/25 Location: [facility] Sex: M C Admitted: Reason For Study Reason For Study: S/p Right popliteal stent to exclude pseudoaneurysm Procedure A bilateral lower extremity continuous wave Doppler with analog waveform analysis and ankle brachial indexes. Left Segmental Pressures Left brachial= 145mmHg. Left posterior tibial artery = 161mmHg. Left dorsalis pedis artery = 165mmHg. Left digit = 109 mmHg. The left dorsalis pedis waveforms are triphasic. The left posterior tibial artery waveforms are triphasic. Right Segmental Pressures Right brachial= 145mmHg. Right posterior tibial artery = 123mmHg. Right dorsalis pedis artery = 119mmHg. Right digit = 52 mmHg. The right dorsalis pedis waveforms are biphasic. The right posterior tibial artery waveforms are biphasic. Indices The right ankle brachial index by the dorsalis pedis is 0.82. The right ankle brachial index by the posterior tibial artery is 0.85. The right digital-brachial index is 0.36. The left ankle brachial index by the dorsalis pedis is 1.14. The left ankle brachial index by the posterior tibial artery is 1.11. The left digital-brachial index is 0.75. VL/Ankle Brachial Index Interpretation Summary Right ANN 0.85, moderate arterial insufficiency. Doppler/PVR waveforms of the right ankle moderately diminished at rest. Left ANN 1.14, normal. TBI and Doppler/PVR waveforms of the left ankle normal at rest. Ordering Physician: Venecia Villar Referring Physician: Husam Khan Chi Performed By: Cande Hinds Lilliam 09/04/25 1313 Date Channing Mckeon MD CC: MAHENDRA Palma; Dr. Husam Khan MD Date Dictated: 09/01/25 1356 Date Transcribed: 09/04/25 1313 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: Signed Normal [facility] Art Duplex Unilat Lower E xton 09-01-2025 US Art Duplex Unilat Lower Ext [facility] [address] [place] [address] US Art Duplex Unilat Lower Ext 09/01/25 1406 MR#: [id number] Acct: [id number] Name: ELIAS SHAH Rep #: [id number] : 1940 85 From: Channing Mckeon MD Attending Dr: MAHENDRA Palma Status: REG CLI Ordering Dr: Venecia Villar Date: 09/01/25 Location: [facility] Sex: M C Admitted: Reason For Study Reason For Study: S/p Right popliteal stent to exclude pseudoaneurysm Right Velocities Ext. Iliac Artery, dist = 114.1 cm./sec. Common Femoral Artery, mid = 124.9 cm./sec. Profunda Femoral Artery = 89.8 cm./sec. Supf Femoral Artery, prox = 129.3 cm./sec. Supf Femoral Artery, mid = 108.6 cm./sec. SFA distal, prox to stent, 174.2 cm/sec. SFA distal, prox stent, 81 cm/sec. Phoebe prox, mid stent, 103 cm/sec. Phoebe mid, mid stent, 89.8 cm/sec. Phoebe distal, mid stent, 78.8 cm/sec. T/P Trunk, distal stent, 105.1 cm/sec. T/P Trunk, distal to stent, 76.6 cm/sec. No flow noted in the residual sac of the pseudoaneurysm that measures 5.93 x 5.59 cm. Post. Tibial Artery, prox = 48.3 cm./sec. Post. Tibial Artery, mid = 19.7 cm./sec. Post. Tibial Artery, dist = 0 cm./sec. Peroneal Artery, prox = 45 cm./sec. Peroneal Artery, mid = 49.3 cm./sec. Peroneal Artery,dist = 59.2 cm./sec. Ant. Tibial Artery, prox = 0 cm./sec. Ant. Tibial Artery, mid, retrograde flow noted. Ant. Tibial Artery, dist = 41.7 cm./sec. /US Art Duplex Unilat Lower Ext Interpretation Summary Patent right superficial femoral-popliteal artery stent with normal velocities and no evidence of stenosis. Pseudoaneurysm/hemato ma with no flow chamber identified; successful exclusion Ordering Physician: Venecia Villar Referring Physician: Husam Khan Chi Performed By: Cande Hinds RVT 09/04/25 1317 Date Channing Mckeon MD CC: MAHENDRA Palma; Dr. Husam Khan MD Date Dictated: 09/01/25 1406 Date Transcribed: 09/04/25 1317 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: Signed Normal [facility] BRCon 08-24-2025 Normal [facility] Comment on above: Result Comment: [id number] OP RC TRANSFUSED 08/24/25 0956 Performed By: #### L 100.0100, L500.2500 #### [facility] [address] [place], [address] MR/BMSArt 08-24-2025 /BMSSaraLeah [facility] [address] [place] [address] OFFICE VISIT Date of Service: 08/24/25 MR#: [id number] Acct: [id number] Name: ELIAS SHAH Rep #: [id number] : 1940 Provider: MAHENDRA Palma Age/Sex: 85/M Location: [facility] Status: Signed Intake Vital Signs 07/27/25 14:22 08/07/25 11:20 08/24/25 08:50 Height 5 ft 9 in 5 ft 9 in Weight: 200 lb BP 111/64 Blood Pressure Location Lt brachial Position Sitting Respiration 14 Pulse 98 Pulse Source Monitor Temp 97.3 F L Temp Source Temporal Pulse Oximetry (%) 97 Oxygen Delivery Method room air Intake Visit Reasons: Post Aortogram 2-4 WK FU Is patient in pain?: Yes Allergies atorvastatin Adverse Reaction (Intermediate, Verified 08/24/25 09:41) Myalgias Medications ???Medication ???Instructions ???Recorded ???Confirmed ???Type tamsulosin 0.4 mg capsule 0.4 mg PO QHS urine flow 08/20/19 08/24/25 History famotidine 40 mg tablet (Pepcid) 40 mg PO DAILY 08/10/20 08/24/25 H istory citalopram 10 mg tablet 10 mg PO DAILY 02/18/21 08/24/25 H istory donepezil 10 mg tablet 10 mg PO DAILY 02/18/21 08/24/25 H istory quetiapine 25 mg tablet 25 mg PO BID 02/18/21 08/24/25 His tory cyanocobalamin (vitamin B-12) 1,000 mcg PO DAILY 07/15/21 History 1,000 mcg capsule ascorbate calcium (vitamin C) 500 500 mg PO DAILY 01/13/22 08/24/25 History mg tablet carvedilol 3.125 mg tablet 3.125 mg PO BID #180 tabs 03/28/24 08/24/25 Rx hydralazine 50 mg tablet 50 mg PO TID #270 TABLETS 04/04/25 08/24/25 Rx amlodipine 5 mg tablet 5 mg PO QHS #90 tabs 06/22/2501/17 Rx vit C 250 mg-vit E 90 mg-zinc 40 1 tab PO BID 06/22/25 08/24/25 His tory mg-copper 1 hs-zyaqom-wpjuga capsule (PreserVision AREDS-2) rosuvastatin 20 mg tablet (Crestor) 10 mg (1/2 x 20 mg) PO DAILY #3 0 07/14/25 08/24/25 Rx tabs albuterol sulfate 90 mcg/actuation 2 puff inhalation Q6H PRN 08/24/25 History aerosol inhaler shortness of breath or wheezing clopidogrel 75 mg tablet 75 mg PO DAILY #90 tabs 08/03/25 1 Rx losartan 50 mg tablet 50 mg PO DAILY #90 tabs 08/03/25 1 Rx Held on 08/08/25. Instructions: Resume after 3 days acetaminophen 500 mg tablet 1,000 mg (2 x 500 mg) PO Q8 #0 tab s 08/08/25 08/24/25 Rx sennosides 8.6 mg-docusate sodium 2 tab PO BID #0 tabs 08/08/2501/17 Rx 50 mg tablet (Stimulant Laxative Plus) oxycodone 5 mg tablet 2.5 mg (1/2 x 5 mg) PO Q6H PRN PRN 08/09/25 08/24/25 Rx Pain Score 6-10 20 days #60 tabs losartan 50 mg tablet 50 mg PO QDAY 08/24/25 08/24/25 Hi story Have you fallen in the past year?: Yes PFSH Medical History Leg pain, right Debility Macular degeneration Iron deficiency anemia due to [...] Cancer Breast cancer Pancreas cancer Social History household members: family housing: house current occupational status: retired Smoking Status: Former smoker alcohol intake: never substance use type: does not use caffeine: Yes Type: carbonated beverages and coffee eating out: 1-3 times/week adán/judaism: Gnosticism seatbelt use: always do you feel safe at home: Yes HPI HPI HPI: ELIAS SHAH, is a 85 M who presents to the office today for follow-up s/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 He is accompanied to his appointment today by his sister who manages his healthcare. He is now residing in [facility]. He reports that ever since the procedure he has had persistent pain right behind his knee, he is taking tylenol and oxycodone as prescribed by (more content not included)... Normal [facility] Type AND Screenon 08-24-2025 Ab SCREEN GEL Negative Normal [facility] Comment on above: Order Comment: NTNYA Performed By: #### L 100.0100, L500.2500 #### [facility] [address] [place], [address] Absolute lymphocyte countOrd ered By: Trixie Pang on 08-23-2025 Lymphocytes Auto (Unsp spec) [#/Vol] 1.87 10*3/uL 0.83-4.51 [facility] Anion gap in Serum or Plasma Ordered By: Trixie Pang on 08-23-2025 Anion gap [Moles/Vol] 10 mmol/L 5-15 [facility] Automated lymphocyte count a s percentage of total leukocytesOrdered By: Trixie Pang on 08-23-2025 Lymphocytes/100 WBC Auto (Unsp spec) 32.2 % 19-41 [facility] BUN/creatinine ratioOrdered By: Trixie Pang on 08-23-2025 Urea nitrogen/Creatinine [Mass ratio] 11.2 mg/mg 10-20 [facility] Basophil percentageOrdered B y: Trixie Pang on 08-23-2025 Basophils/100 WBC (Bld) 0.2 % 0-1 [facility] Carbon dioxide, total [Moles /volume] in Central venous bloodOrdered By: Trixie Pang on 08-23-2025 CO2 [Moles/Vol] 26.3 mmol/L 21.0-32.0 [facility] Chloride assayOrdered By: Bandar Pang on 08-23-2025 Chloride [Moles/Vol] 101 mmol/L 98-108 [facility] Eosinophil percentageOrdered By: Trixie Pang on 08-23-2025 Eosinophils/100 WBC (Bld) 0.3 % 0-5 [facility] Erythrocyte distribution wid th ratioOrdered By: Trixie Pang on 08-23-2025 Erythrocyte distribution width (RBC) [Ratio] 17.3 % High 11.6-14.6 [facility] Erythrocyte distribution wid th standard deviationOrdered By: Trixie Pang on 08-23-2025 Erythrocyte distribution width (RBC) [Ratio] 50.4 fl High 35.1-43.9 [facility] Glomerular filtration rate ( GFR) estimation/1.73 sq m using serum, plasma, or whole bOrdered By: Trixie Pang on 08-23-2025 GFR/1.73 sq M.predicted among non-blacks MDRD (S/P/Bld) [Vol rate/Area] 83 mL/min/{1.73_m2} >60 [facility] Hematocrit Auto (Bld) [Volum e fraction]Ordered By: Trixie Pang on 08-23-2025 Hematocrit (Bld) [Volume fraction] 24.7 % Low 40-54 [facility] Hemoglobin measurementOrdere d By: Trixie Pang on 08-23-2025 Hemoglobin (Bld) [Mass/Vol] 7.6 g/dL Low 13.0-16.5 [facility] Immature granulocytes/100 WB C Auto (Bld)Ordered By: Trixie Pang on 08-23-2025 Immature granulocytes/100 WBC (Bld) 1.000 % High 0.0-0.9 [facility] MCV (mean corpuscular volume ) determinationOrdered By: Trixie Pang on 08-23-2025 MCV (RBC) [Entitic vol] 81.8 fL 80-94 [facility] Mean corpuscular hemoglobin (MCH) determinationOrdered By: Trixie Pang 08-23-2025 MCH (RBC) [Entitic mass] 25.2 pg Low 27.0-32.0 [facility] Monocyte percentageOrdered B y: Ianmanifortunato Pang on 08-23-2025 Monocytes/100 WBC (Bld) 14.8 % High 0-10 [facility] Neutrophil percentageOrdered By: Hunterfortunato Molinachristophemiranda on 08-23-2025 Neutrophils/100 WBC (Bld) 51.5 % 47-70 [facility] Platelet countOrdered By: Bandar nicolreynaldo Pang on 08-23-2025 Platelets (Bld) [#/Vol] 220 10*3/uL 150-450 [facility] Potassium measurement (mass/ volume)Ordered By: Trixie Pang on 08-23-2025 Potassium (Unsp spec) [Mass/Vol] 4.0 mmol/L 3.3-5.1 [facility] RBC Auto (Bld) [#/Vol]Ordere d By: Trixie Pang on 08-23-2025 RBC (Bld) [#/Vol] 3.02 10*6/uL Low 4.6-6.2 [facility] Serum creatinine measurement (mass/volume)Ordered By: Trixie Pang on 08-23-2025 Creatinine [Mass/Vol] 0.90 mg/dL 0.70-1.20 [facility] Serum glucose measurement (m ass/volume)Ordered By: Trixie Pang on 08-23-2025 Glucose [Mass/Vol] 95 mg/dL 70-99 [facility] Serum or plasma calcium donna urement (mass/volume)Ordered By: Trixie Pang on 08-23-2025 Calcium [Mass/Vol] 8.2 mg/dL 7.6-11.0 [facility] Serum or plasma urea nitroge n measurement (mass/volume)Ordered By: Trixie Pang on 08-23-2025 Urea nitrogen [Mass/Vol] 10 mg/dL 4-19 [facility] Sodium levelOrdered By: Ian brodyjuice Bird on 08-23-2025 Sodium [Moles/Vol] 137 mmol/L 133-145 [facility] White blood cell (WBC) count Ordered By: Trixie Pang on 08-23-2025 WBC (Bld) [#/Vol] 5.8 10*3/uL 4.4-11.0 [facility] Absolute lymphocyte countOrd ered By: Trixie Pang on 08-16-2025 Lymphocytes Auto (Unsp spec) [#/Vol] 1.56 10*3/uL 0.83-4.51 [facility] Anion gap in Serum or Plasma Ordered By: Trixie Pang on 08-16-2025 Anion gap [Moles/Vol] 10 mmol/L 5-15 [facility] Automated lymphocyte count a s percentage of total leukocytesOrdered By: Trixie Pang on 08-16-2025 Lymphocytes/100 WBC Auto (Unsp spec) 17.8 % Low 19-41 [facility] BUN/creatinine ratioOrdered By: Trixie Pang on 08-16-2025 Urea nitrogen/Creatinine [Mass ratio] 18.1 mg/mg 10-20 [facility] Basophil percentageOrdered B y: Trixie Pang on 08-16-2025 Basophils/100 WBC (Bld) 0.1 % 0-1 [facility] Bilirubin directOrdered By: Trixie Pang on 08-16-2025 Bilirubin.direct [Mass/Vol] 0.21 mg/dL 0.00-0.30 [facility] Bilirubin, totalOrdered By: Trixie Pang on 08-16-2025 Bilirubin [Mass/Vol] 0.39 mg/dL 0.00-1.30 [facility] Carbon dioxide, total [Moles /volume] in Central venous bloodOrdered By: Trixie Pang on 08-16-2025 CO2 [Moles/Vol] 25.7 mmol/L 21.0-32.0 [facility] Chloride assayOrdered By: Bandar Pang on 08-16-2025 Chloride [Moles/Vol] 99 mmol/L 98-108 [facility] Eosinophil percentageOrdered By: Trixie Pang on 08-16-2025 Eosinophils/100 WBC (Bld) 0.5 % 0-5 [facility] Erythrocyte distribution wid th ratioOrdered By: Trixie aPng on 08-16-2025 Erythrocyte distribution width (RBC) [Ratio] 17.5 % High 11.6-14.6 [facility] Erythrocyte distribution wid th standard deviationOrdered By: Trixie Augustechristophemiranda on 08-16-2025 Erythrocyte distribution width (RBC) [Ratio] 51.3 fl High 35.1-43.9 [facility] Glomerular filtration rate ( GFR) estimation/1.73 sq m using serum, plasma, or whole bOrdered By: Trixie Pang on 08-16-2025 GFR/1.73 sq M.predicted among non-blacks MDRD (S/P/Bld) [Vol rate/Area] 67 mL/min/{1.73_m2} >60 [facility] Hematocrit Auto (Bld) [Volum e fraction]Ordered By: [facility] Centerfortunato Pang on 08-16-2025 Hematocrit (Bld) [Volume fraction] 25.9 % Low 40-54 [facility] Hemoglobin measurementOrdere d By: Trixie Pang on 08-16-2025 Hemoglobin (Bld) [Mass/Vol] 7.7 g/dL Low 13.0-16.5 [facility] Immature granulocytes/100 WB C Auto (Bld)Ordered By: Trixie Pang on 08-16-2025 Immature granulocytes/100 WBC (Bld) 1.400 % High 0.0-0.9 [facility] MCV (mean corpuscular volume ) determinationOrdered By: Trixie Pang on 08-16-2025 MCV (RBC) [Entitic vol] 82.2 fL 80-94 [facility] Mean corpuscular hemoglobin (MCH) determinationOrdered By: [facility] Centerfortunato Pang on 08-16-2025 MCH (RBC) [Entitic mass] 24.4 pg Low 27.0-32.0 [facility] Monocyte percentageOrdered B y: Trixie Pang on 08-16-2025 Monocytes/100 WBC (Bld) 13.7 % High 0-10 [facility] Neutrophil percentageOrdered By: nicolmamoufortunato Pang on 08-16-2025 Neutrophils/100 WBC (Bld) 66.5 % 47-70 [facility] No Panel InformationOrdered By: Trixie Pang on 08-16-2025 226 U/L High <38 [facility] Platelet countOrdered By: Bandar Pang on 08-16-2025 Platelets (Bld) [#/Vol] 234 10*3/uL 150-450 [facility] Potassium measurement (mass/ volume)Ordered By: Trixie Pang on 08-16-2025 Potassium (Unsp spec) [Mass/Vol] 4.3 mmol/L 3.3-5.1 [facility] RBC Auto (Bld) [#/Vol]Ordere d By: Trixie Pang on 08-16-2025 RBC (Bld) [#/Vol] 3.15 10*6/uL Low 4.6-6.2 [facility] Serum creatinine measurement (mass/volume)Ordered By: Trixie Pang on 08-16-2025 Creatinine [Mass/Vol] 1.07 mg/dL 0.70-1.20 [facility] Serum globulin measurementOr dered By: Trxiie Pang on 08-16-2025 Globulin (S) [Mass/Vol] 3.7 g/dL 2.2-4.2 [facility] Serum glucose measurement (m ass/volume)Ordered By: Trixie Pang on 08-16-2025 Glucose [Mass/Vol] 103 mg/dL High 70-99 [facility] Serum or plasma alanine mccoy otransferase (ALT) measurementOrdered By: Trixie Pang on 08-16-2025 ALT [Catalytic activity/Vol] 179 U/L High <47 [facility] Serum or plasma albumin donna urement (mass/volume)Ordered By: Trixie Pang on 08-16-2025 Albumin [Mass/Vol] 2.7 g/dL Low 3.4-4.8 [facility] Serum or plasma alkaline salvador sphatase measurementOrdered By: Trixie Pang on 08-16-2025 ALP [Catalytic activity/Vol] 164 U/L High 40-129 [facility] Serum or plasma calcium donna urement (mass/volume)Ordered By: Trixie Pang on 08-16-2025 Calcium [Mass/Vol] 8.4 mg/dL 7.6-11.0 [facility] Serum or plasma urea nitroge n measurement (mass/volume)Ordered By: Trixie Pang on 08-16-2025 Urea nitrogen [Mass/Vol] 19 mg/dL 4- [facility] Sodium levelOrdered By: Ian Pang on 08-16-2025 Sodium [Moles/Vol] 134 mmol/L 133-145 [facility] Total proteinOrdered By: Jarred Pang on 08-16-2025 Protein [Mass/Vol] 6.5 g/dL 5.9-8.4 [facility] White blood cell (WBC) count Ordered By: Trixie Pang on 08-16-2025 WBC (Bld) [#/Vol] 8.8 10*3/uL 4.4-11.0 [facility] Basic Metabolic Profile (BMP )on 08-11-2025 BUN Normal - [facility] Comment on above: Result Comment: Ritesh elled via OM: MD Ordered Performed By: #### L 500.2500 #### [facility] [address] [place], [address] BUN/CRE Normal 10-20 [facility] Comment on above: Result Comment: Canc elled via OM: MD Ordered Performed By: #### L 500.2500 #### [facility] [address] [place], [address] Calcium Normal 7.6-11.0 [facility] Comment on above: Result Comment: Canc elled via OM: MD Ordered Performed By: #### L [id number] #### [facility] [address] [place], [address] CL Normal 98-108 [facility] Comment on above: Result Comment: Canc elled via OM: MD Ordered Performed By: #### L [id number] #### [facility] [address] [place], [address] CO2 Normal 21.0-32.0 [facility] Comment on above: Result Comment: Canc elled via OM: MD Ordered Performed By: #### L [id number] #### [facility] [address] [place], [address] CREAT,SERUM Normal 0.70-1.20 [facility] Comment on above: Result Comment: Canc elled via OM: MD Ordered Performed By: #### L 500.2500 #### [facility] [address] [place], [address] eGFR Normal >60 [facility] Comment on above: Result Comment: Canc elled via OM: MD Ordered Performed By: #### L 500.2500 #### [facility] [address] [place], [address] GAP Normal 5-15 [facility] Comment on above: Result Comment: Canc elled via OM: MD Ordered Performed By: #### L 500.2500 #### [facility] [address] [place], [address] GLU Normal 70-99 [facility] Comment on above: Result Comment: Canc elled via OM: MD Ordered Performed By: #### L 500.2500 #### [facility] [address] [place], [address] Potassium Normal 3.3-5.1 [facility] Comment on above: Result Comment: Canc elled via OM: MD Ordered Performed By: #### L 500.2500 #### [facility] [address] [place], [address] Basic Metabolic Profile (BMP) Normal 133-145 [facility] Comment on above: Result Comment: Canc elled via OM: MD Ordered Performed By: #### L 500.2500 #### [facility] [address] [place], [address] Culture, Blood (WB)on 2024 CUB No growth in [address] [facility] Comment on above: Performed By: #### L 503.6005 #### [facility] [address] [place], [place], [address] Echo Complete W/ Contraston 08-11-2025 Echo Complete W/ Contrast [facility] [address] [place] [address] Echo Complete W/ Contrast 08/11/25 1354 MR#: [id number] Acct: [id number] Name: ELIAS SHAH Rep #: [id number] : 1940 85 From: Kenan Santamaria MD Attending Dr: MAHENDRA Lafleur Status: REG CLI Ordering Dr: La Hernández Date: 07/24 08/17 Location: CVS Sex: M C Admitted: Reason For Study Reason For Study: MURMUR Procedure This was a 2D Doppler, Color Flow transthoracic echocardiogram. The study was technically difficult. Suboptimal imaging windows. Exam performed in department. Left Ventricle Normal LV size. Left ventricular systolic function is normal. The left ventricular ejection fraction is 55 %. No regional wall motion abnormalities noted. Right Ventricle Normal RV size. Normal systolic function. Atria The left atrium is moderately enlarged. Normal right atrium. Mitral Valve There is moderate mitral annular calcification. Tricuspid Valve Normal tricuspid valve. Aortic Valve The aortic valve is not well visualized. Pulmonic Valve Normal pulmonic valve. Great Vessels Mildly dilated aortic root. The pulmonary artery is normal size. Inferior vena cava collapse with respiration. Pericardium/Pleural No pericardial effusion. Medication 22 gauge I.V. with prn adaptor inserted into left arm. Diluted definity 2.0ml given slow IV push to enhance endocardial definition. MMode/2D Measurements Calculations LVIDd: 4.3 cm IVSd: 1.1 cm Ao root diam: 3.9 cm LVIDs: 2.8 cm LVPWd: 1.1 cm FS: 34.6 % LAV(MOD-bp): 86.1 ml LVAd ap4: 28.6 cm2 LVAd ap2: 28.1 cm2 LAV(MOD-bp) Indexed: 42.6 ml/m2 LVLd ap4: 8.4 cm LVLd ap2: 8.7 cm LAV(MOD-sp2): 82.4 ml EDV(MOD-sp4): 81.0 ml EDV(MOD-sp2): 72.9 ml LAV(MOD-sp4): 89.4 ml EDV(sp4-el): 82.5 ml EDV(sp2-el): 76.8 ml LVAs ap4: 18.9 cm2 LVAs ap2: 15.6 cm2 LVLs ap4: 7.7 cm LVLs ap2: 6.7 cm ESV(MOD-sp4): 39.3 ml ESV(MOD-sp2): 30.3 ml ESV(sp4-el): 39.8 ml ESV(sp2-el): 31.1 ml EF(MOD-sp4): 51.5 % EF(MOD-sp2): 58.5 % EF(sp4-el): 51.8 % SV(MOD-sp4): 41.8 ml SV(MOD-sp2): 42.7 ml SV(sp4-el): 42.8 ml SI(MOD-sp4): 20.7 ml/m2 SI(MOD-sp2): 21.1 ml/m2 LA A4 area: 25.5 cm2 LA dimension(2D): 4.3 cm RA A4 area: 16.5 cm2 TAPSE: 1.8 cm Doppler Measurements Calculations MV E max mindy: 133.2 cm/sec Ao V2 max: 188.8 cm/sec LV V1 max: 104.5 cm/sec Ao max P.4 mmHg LV V1 max P.4 mmHg Ao V2 mean: 136.5 cm/sec LV V1 mean P.0 mmHg Ao mean P.3 mmHg LV V1 mean: 65.7 cm/sec Ao V2 VTI: 30.7 cm LV V1 VTI: 17.4 cm AV (velocity ratio): 0.57 ECHO/Echo Complete W/ Contrast Interpretation Summary Normal LV size. Left ventricular systolic function is normal. The left ventricular ejection fraction is 55 %. Mildly dilated aortic root. Contrast injection was performed. Ordering Physician: La Hernández Referring Physician: Husam Khan Chi Performed By: Shannon Alves RDCS, RVT 09/19/1656 Kenan Santamaria MD CC: Dr. Husam Khan MD; MAHENDRA Lafleur Date Dictated: 08/11/25 1354 Date Transcribed: 08/11/251656 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: Signed Normal [facility] Echocardiogram study reportO rdered By: Kenan Santamaria on 08-11-2025 Study report [facility] Work Phone: Basic Metabolic Profile (BMP )on 08-10-2025 BUN Normal -19 [facility] Comment on above: Result Comment: Canc elled via OM: Order cancelled - Patient discharged Performed By: #### L 100.0100, L500.2500 #### [facility] [address] [place], [address] BUN/CRE Normal 10-20 [facility] Comment on above: Result Comment: Canc elled via OM: Order cancelled - Patient discharged Performed By: #### L 100.0100, L500.2500 #### [facility] [address] [place], [address] Calcium Normal 7.6-11.0 [facility] Comment on above: Result Comment: Canc elled via OM: Order cancelled - Patient discharged Performed By: #### L 100.0100, L500.2500 #### [facility] [address] [place], [address] CL Normal 98-108 [facility] Comment on above: Result Comment: Canc elled via OM: Order cancelled - Patient discharged Performed By: #### L 100.0100, L500.2500 #### [facility] [address] [place], [address] CO2 Normal 21.0-32.0 [facility] Comment on above: Result Comment: Canc elled via OM: Order cancelled - Patient discharged Performed By: #### L 100.0100, L500.2500 #### [facility] [address] [place], [address] CREAT,SERUM Normal 0.70-1.20 [facility] Comment on above: Result Comment: Canc elled via OM: Order cancelled - Patient discharged Performed By: #### L 100.0100, L500.2500 #### [facility] [address] [place], [address] eGFR Normal >60 [facility] Comment on above: Result Comment: Canc elled via OM: Order cancelled - Patient discharged Performed By: #### L 100.0100, L500.2500 #### [facility] [address] [place], [address] GAP Normal 5-15 [facility] Comment on above: Result Comment: Canc elled via OM: Order cancelled - Patient discharged Performed By: #### L 100.0100, L500.2500 #### [facility] [address] [place], [address] GLU Normal 70-99 [facility] Comment on above: Result Comment: Canc elled via OM: Order cancelled - Patient discharged Performed By: #### L 100.0100, L500.2500 #### [facility] [address] [place], [address] Potassium Normal 3.3-5.1 [facility] Comment on above: Result Comment: Canc elled via OM: Order cancelled - Patient discharged Performed By: #### L 100.0100, L500.2500 #### [facility] [address] [place], [address] Basic Metabolic Profile (BMP) Normal 133-145 [facility] Comment on above: Result Comment: Canc elled via OM: Order cancelled - Patient discharged Performed By: #### L 100.0100, L500.2500 #### [facility] [address] [place], [address] CBC W/Diff, Automatedon 09-1 Absolute Neut Normal 2.0-7.7 [facility] Comment on above: Result Comment: Canc elled via OM: Order cancelled - Patient discharged Performed By: #### L 100.0100, L500.2500 #### [facility] [address] [place], [address] HCT Normal 40-54 [facility] Comment on above: Result Comment: Canc elled via OM: Order cancelled - Patient discharged Performed By: #### L 100.0100, L500.2500 #### [facility] [address] [place], [address] HGB Normal 13.0-16.5 [facility] Comment on above: Result Comment: Canc elled via OM: Order cancelled - Patient discharged Performed By: #### L 100.0100, L500.2500 #### [facility] [address] [place], [address] MCH Normal 27.0-32.0 [facility] Comment on above: Result Comment: Canc elled via OM: Order cancelled - Patient discharged Performed By: #### L 100.0100, L500.2500 #### [facility] [address] [place], [address] MCHC Normal 32-36 [facility] Comment on above: Result Comment: Canc elled via OM: Order cancelled - Patient discharged Performed By: #### L 100.0100, L500.2500 #### [facility] [address] [place], [address] MCV Normal 80-94 [facility] Comment on above: Result Comment: Canc elled via OM: Order cancelled - Patient discharged Performed By: #### L 100.0100, L500.2500 #### [facility] [address] [place], [address] NEUT% Normal 47-70 [facility] Comment on above: Result Comment: Canc elled via OM: Order cancelled - Patient discharged Performed By: #### L 100.0100, L500.2500 #### [facility] [address] [place], [address] PLT Normal 150-450 [facility] Comment on above: Result Comment: Canc elled via OM: Order cancelled - Patient discharged Performed By: #### L 100.0100, L500.2500 #### [facility] [address] [place], [address] RBC Normal 4.6-6.2 [facility] Comment on above: Result Comment: Canc elled via OM: Order cancelled - Patient discharged Performed By: #### L 100.0100, L500.2500 #### [facility] [address] [place], [address] RDW CV Normal 11.6-14.6 [facility] Comment on above: Result Comment: Canc elled via OM: Order cancelled - Patient discharged Performed By: #### L 100.0100, L500.2500 #### [facility] [address] [place], [address] RDW SD Normal 35.1-43.9 [facility] Comment on above: Result Comment: Canc elled via OM: Order cancelled - Patient discharged Performed By: #### L 100.0100, L500.2500 #### [facility] [address] [place], [address] WBC Normal 4.4-11.0 [facility] Comment on above: Result Comment: Canc elled via OM: Order cancelled - Patient discharged Performed By: #### L 100.0100, L500.2500 #### [facility] [address] [place], [address] Absolute lymphocyte countOrd ered By: Efmikaela Pang on 08-09-2025 Lymphocytes Auto (Unsp spec) [#/Vol] 1.61 10*3/uL 0.83-4.51 [facility] Anion gap in Serum or Plasma Ordered By: Trixie Pang on 08-09-2025 Anion gap [Moles/Vol] 10 mmol/L 5-15 [facility] Automated lymphocyte count a s percentage of total leukocytesOrdered By: Trixie Pang on 08-09-2025 Lymphocytes/100 WBC Auto (Unsp spec) 25.4 % - [facility] BUN/creatinine ratioOrdered By: nicolmanifortunato Augustechristophemiranda on 08-09-2025 Urea nitrogen/Creatinine [Mass ratio] 16.7 mg/mg 10- [facility] Basic Metabolic Profile (BMP )on 08-09-2025 BUN Normal 4-19 [facility] Comment on above: Result Comment: Ritesh elled via OM: MD Ordered Performed By: #### L 100.0100, L500.2500 #### [facility] [address] [place], [address] BUN/CRE Normal 10-20 [facility] Comment on above: Result Comment: Ritesh elled via OM: MD Ordered Performed By: #### L 100.0100, L500.2500 #### [facility] [address] [place], [address] Calcium Normal 7.6-11.0 [facility] Comment on above: Result Comment: Ritesh elled via OM: MD Ordered Performed By: #### L 100.0100, L500.2500 #### [facility] [address] [place], [address] CL Normal 98-108 [facility] Comment on above: Result Comment: Ritesh elled via OM: MD Ordered Performed By: #### L 100.0100, L500.2500 #### [facility] [address] [place], [address] CO2 Normal 21.0-32.0 [facility] Comment on above: Result Comment: Canc elled via OM: MD Ordered Performed By: #### L 100.0100, L500.2500 #### [facility] [address] [place], [address] CREAT,SERUM Normal 0.70-1.20 [facility] Comment on above: Result Comment: Canc elled via OM: MD Ordered Performed By: #### L 100.0100, L500.2500 #### [facility] [address] [place], [address] eGFR Normal >60 [facility] Comment on above: Result Comment: Canc elled via OM: MD Ordered Performed By: #### L 100.0100, L500.2500 #### [facility] [address] [place], [address] GAP Normal 5-15 [facility] Comment on above: Result Comment: Canc elled via OM: MD Ordered Performed By: #### L 100.0100, L500.2500 #### [facility] [address] [place], [address] GLU Normal 70-99 [facility] Comment on above: Result Comment: Canc elled via OM: MD Ordered Performed By: #### L 100.0100, L500.2500 #### [facility] [address] [place], [address] Potassium Normal 3.3-5.1 [facility] Comment on above: Result Comment: Canc elled via OM: MD Ordered Performed By: #### L 100.0100, L500.2500 #### [facility] [address] [place], [address] Basic Metabolic Profile (BMP) Normal 133-145 [facility] Comment on above: Result Comment: Canc elled via OM: MD Ordered Performed By: #### L 100.0100, L500.2500 #### [facility] [address] [place], [address] Basophil percentageOrdered B y: Trixie Pang on 08-09-2025 Basophils/100 WBC (Bld) 0.2 % 0-1 [facility] Bilirubin, totalOrdered By: Trixie Pang on 08-09-2025 Bilirubin [Mass/Vol] 0.37 mg/dL 0.00-1.30 [facility] CBC W/Diff, Automatedon 07-24 Absolute Neut Normal 2.0-7.7 [facility] Comment on above: Result Comment: Canc elled via OM: MD Ordered Performed By: #### L 100.0100, L500.2500 #### [facility] [address] [place], [address] HCT Normal 40-54 [facility] Comment on above: Result Comment: Canc elled via OM: MD Ordered Performed By: #### L 100.0100, L500.2500 #### [facility] [address] [place], [address] HGB Normal 13.0-16.5 [facility] Comment on above: Result Comment: Canc elled via OM: MD Ordered Performed By: #### L 100.0100, L500.2500 #### [facility] [address] [place], [address] MCH Normal 27.0-32.0 [facility] Comment on above: Result Comment: Canc elled via OM: MD Ordered Performed By: #### L 100.0100, L500.2500 #### [facility] [address] [place], [address] MCHC Normal 32-36 [facility] Comment on above: Result Comment: Canc elled via OM: MD Ordered Performed By: #### L 100.0100, L500.2500 #### [facility] [address] [place], [address] MCV Normal 80-94 [facility] Comment on above: Result Comment: Canc elled via OM: MD Ordered Performed By: #### L 100.0100, L500.2500 #### [facility] [address] [place], [address] NEUT% Normal 47-70 [facility] Comment on above: Result Comment: Canc elled via OM: MD Ordered Performed By: #### L 100.0100, L500.2500 #### [facility] [address] [place], [address] PLT Normal 150-450 [facility] Comment on above: Result Comment: Canc elled via OM: MD Ordered Performed By: #### L 100.0100, L500.2500 #### [facility] [address] [place], [address] RBC Normal 4.6-6.2 [facility] Comment on above: Result Comment: Canc elled via OM: MD Ordered Performed By: #### L 100.0100, L500.2500 #### [facility] [address] [place], [address] RDW CV Normal 11.6-14.6 [facility] Comment on above: Result Comment: Canc elled via OM: MD Ordered Performed By: #### L 100.0100, L500.2500 #### [facility] [address] [place], [address] RDW SD Normal 35.1-43.9 [facility] Comment on above: Result Comment: Canc elled via OM: MD Ordered Performed By: #### L 100.0100, L500.2500 #### [facility] [address] [place], [address] WBC Normal 4.4-11.0 [facility] Comment on above: Result Comment: Canc elled via OM: MD Ordered Performed By: #### L 100.0100, L500.2500 #### [facility] [place], [address] Calculated very low density lipoprotein (VLDL) cholesterol measurementOrdered By: Trixie Pang on 08-09-2025 Calculated very low density lipoprotein (VLDL) cholesterol measurement 16 mg/dL 5-40 [facility] Carbon dioxide, total [Moles /volume] in Central venous bloodOrdered By: Trixie Pang on 08-09-2025 CO2 [Moles/Vol] 24.8 mmol/L 21.0-32.0 [facility] Chloride assayOrdered By: Bandar Pang on 08-09-2025 Chloride [Moles/Vol] 103 mmol/L 98-108 [facility] Eosinophil percentageOrdered By: Trixie Pang 08-09-2025 Eosinophils/100 WBC (Bld) 0.6 % 0-5 [facility] Erythrocyte distribution wid th ratioOrdered By: Trixie Pang on 08-09-2025 Erythrocyte distribution width (RBC) [Ratio] 16.8 % High 11.6-14.6 [facility] Erythrocyte distribution wid th standard deviationOrdered By: nicolmamoufortunato Pang on 08-09-2025 Erythrocyte distribution width (RBC) [Ratio] 49.4 fl High 35.1-43.9 [facility] Glomerular filtration rate ( GFR) estimation/1.73 sq m using serum, plasma, or whole bOrdered By: Trixie Pang on 08-09-2025 GFR/1.73 sq M.predicted among non-blacks MDRD (S/P/Bld) [Vol rate/Area] 74 mL/min/{1.73_m2} >60 [facility] Hematocrit Auto (Bld) [Volum e fraction]Ordered By: Trixie Pang on 08-09-2025 Hematocrit (Bld) [Volume fraction] 26.7 % Low 40-54 [facility] Hemoglobin measurementOrdere d By: Trixie Pang on 08-09-2025 Hemoglobin (Bld) [Mass/Vol] 8.3 g/dL Low 13.0-16.5 [facility] Immature granulocytes/100 WB C Auto (Bld)Ordered By: Trixie Pang on 08-09-2025 Immature granulocytes/100 WBC (Bld) 4.300 % High 0.0-0.9 [facility] LDL calc ser/plasOrdered By: Trixie Pang on 08-09-2025 Cholesterol in LDL [Mass/Vol] 35 mg/dL [facility] MCV (mean corpuscular volume ) determinationOrdered By: Trixie Pang on 08-09-2025 MCV (RBC) [Entitic vol] 82.9 fL 80-94 [facility] Mean corpuscular hemoglobin (MCH) determinationOrdered By: Trixie Pang on 08-09-2025 MCH (RBC) [Entitic mass] 25.8 pg Low 27.0-32.0 [facility] Monocyte percentageOrdered B y: Trixie Pang on 08-09-2025 Monocytes/100 WBC (Bld) 17.3 % High 0-10 [facility] Neutrophil percentageOrdered By: Trixie Pang on 08-09-2025 Neutrophils/100 WBC (Bld) 52.2 % 47-70 [facility] No Panel InformationOrdered By: Trixie Pang on 08-09-2025 82 U/L High <38 [facility] Platelet countOrdered By: Bandar Pang on 08-09-2025 Platelets (Bld) [#/Vol] 245 10*3/uL 150-450 [facility] Potassium measurement (mass/ volume)Ordered By: Trixie Pang on 08-09-2025 Potassium (Unsp spec) [Mass/Vol] 4.3 mmol/L 3.3-5.1 [facility] RBC Auto (Bld) [#/Vol]Ordere d By: Trixie Pang on 08-09-2025 RBC (Bld) [#/Vol] 3.22 10*6/uL Low 4.6-6.2 [facility] Serum creatinine measurement (mass/volume)Ordered By: Trixie Pang on 08-09-2025 Creatinine [Mass/Vol] 0.98 mg/dL 0.70-1.20 [facility] Serum globulin measurementOr dered By: Trixie Pang on 08-09-2025 Globulin (S) [Mass/Vol] 3.7 g/dL 2.2-4.2 [facility] Serum glucose measurement (m ass/volume)Ordered By: Trixie Pang on 08-09-2025 Glucose [Mass/Vol] 92 mg/dL 70-99 [facility] Serum or plasma alanine mccoy otransferase (ALT) measurementOrdered By: Trixie Pang on 08-09-2025 ALT [Catalytic activity/Vol] 112 U/L High <47 [facility] Serum or plasma albumin donna urement (mass/volume)Ordered By: Trixie Pang on 08-09-2025 Albumin [Mass/Vol] 2.6 g/dL Low 3.4-4.8 [facility] Serum or plasma albumin/glob ulin mass ratioOrdered By: Trixie Pang on 08-09-2025 Albumin/Globulin [Mass ratio] 0.7 {ratio} Low 0.9-2.4 [facility] Serum or plasma alkaline salvador sphatase measurementOrdered By: Trixie Pang on 08-09-2025 ALP [Catalytic activity/Vol] 147 U/L High 40-129 [facility] Serum or plasma calcium donna urement (mass/volume)Ordered By: Trixie Pang on 08-09-2025 Calcium [Mass/Vol] 8.6 mg/dL 7.6-11.0 [facility] Serum or plasma cholesterol in HDL measurement (mass/volume)Ordered By: Trixie Pang on 08-09-2025 Cholesterol in HDL [Mass/Vol] 23 mg/dL Low >40 [facility] Serum or plasma cholesterol measurement (mass/volume)Ordered By: Trixie Pang on 08-09-2025 Cholesterol [Mass/Vol] 74 mg/dL <201 [facility] Serum or plasma urea nitroge n measurement (mass/volume)Ordered By: Trixie Pang on 08-09-2025 Urea nitrogen [Mass/Vol] 16 mg/dL 4-19 [facility] Sodium levelOrdered By: Bandarnicol Pang on 08-09-2025 Sodium [Moles/Vol] 138 mmol/L 133-145 [facility] Total proteinOrdered By: Jarred Pang on 08-09-2025 Protein [Mass/Vol] 6.3 g/dL 5.9-8.4 [facility] Vitamin B12 ser/plasOrdered By: Trixie Pang on 08-09-2025 Cobalamin (Vitamin B12) [Mass/Vol] 1811 pg/mL High 180-914 [facility] White blood cell (WBC) count Ordered By: Trixie Molinachristophemiranda on 08-09-2025 WBC (Bld) [#/Vol] 6.4 10*3/uL 4.4-11.0 [facility] Absolute lymphocyte countOrd ered By: Pedro Banegas on 08-08-2025 Lymphocytes Auto (Unsp spec) [#/Vol] 1.38 10*3/uL 0.83-4.51 [facility] Absolute neutrophil countOrd ered By: Pedro Banegas on 08-08-2025 Neutrophils (Bld) [#/Vol] 5.1 10*3/uL 2.0-7.7 [facility] Anion gap in Serum or Plasma Ordered By: Pedro Banegas on 08-08-2025 Anion gap [Moles/Vol] 9 mmol/L 5-15 [facility] Automated lymphocyte count a s percentage of total leukocytesOrdered By: Pedro Banegas on 08-08-2025 Lymphocytes/100 WBC Auto (Unsp spec) 17.1 % Low 19-41 [facility] BUN/creatinine ratioOrdered By: Pedro Banegas on 08-08-2025 Urea nitrogen/Creatinine [Mass ratio] 18.8 mg/mg 10- [facility] Basic Metabolic Profile (BMP )on 08-08-2025 BUN/CRE 18.8 RATIO Normal - [facility] Comment on above: Performed By: #### L 100.0100, L500.2500 #### [facility] [address] [place], [place] [address], [address] Calcium [Mass/Vol] 8.4 mg/dL Normal 7.6-11.0 [facility] Comment on above: Performed By: #### L 100.0100, L500.2500 #### [facility] [address] [place], [address] Chloride [Moles/Vol] 105 mmol/L Normal 98-108 [facility] Comment on above: Performed By: #### L 100.0100, L500.2500 #### [facility] [address] [place], [address] CO2 [Moles/Vol] 23.3 mmol/L Normal 21.0-32.0 [facility] Comment on above: Performed By: #### L 100.0100, L500.2500 #### [facility] [address] [place], [address] Creatinine [Mass/Vol] 1.04 mg/dL Normal 0.70-1.20 [facility] Comment on above: Performed By: #### L 100.0100, L500.2500 #### [facility] [address] [place], [address] ECRCL 55.85 ml/min Normal 50-250 [facility] Comment on above: Performed By: #### L 100.0100, L500.2500 #### [facility] [address] [place], [address] GAP 9 Normal 5-15 [facility] Comment on above: Performed By: #### L 100.0100, L500.2500 #### [facility] [address] [place], [address] GFR/1.73 sq M.predicted among non-blacks MDRD (S/P/Bld) [Vol rate/Area] 69 mL/min/{1.73_m2} Normal >60 [facility] Comment on above: Result Comment: mL/m in/1.73m2 CKD-EPI Creatinine Equation (2020) Performed By: #### L 100.0100, L500.2500 #### [facility] [address] [place], [address] Glucose [Mass/Vol] 97 mg/dL Normal 70-99 [facility] Comment on above: Performed By: #### L 100.0100, L500.2500 #### [facility] [address] [place], [address] Potassium [Moles/Vol] 4.6 mmol/L Normal 3.3-5.1 [facility] Comment on above: Performed By: #### L 100.0100, L500.2500 #### [facility] [address] [place], [address] Sodium [Moles/Vol] 137 mmol/L Normal 133-145 [facility] Comment on above: Performed By: #### L 100.0100, L500.2500 #### [facility] [address] [place], [address] Urea nitrogen [Mass/Vol] 20 mg/dL High 4-19 [facility] Comment on above: Performed By: #### L 100.0100, L500.2500 #### [facility] [address] [place], [address] Basophil percentageOrdered B y: Pedro Banegas on 08-08-2025 Basophils/100 WBC (Bld) 0.2 % 0-1 [facility] CBC W/Diff, Automatedon 07-24 Absolute Lymph 1.38 X10 3/uL Normal 0.83-4.51 [facility] Comment on above: Performed By: #### L 100.0100, L500.2500 #### [facility] [address] [place], [address] Absolute Neut 5.1 X10 3/uL Normal 2.0-7.7 [facility] Comment on above: Performed By: #### L 100.0100, L500.2500 #### [facility] [address] [place], [address] Basophils/100 WBC (Bld) 0.2 % Normal 0-1 [facility] Comment on above: Performed By: #### L 100.0100, L500.2500 #### [facility] [address] [place], [address] Eosinophils/100 WBC (Bld) 0.7 % Normal 0-5 [facility] Comment on above: Performed By: #### L 100.0100, L500.2500 #### [facility] [address] [place], [address] Erythrocyte distribution width (RBC) [Ratio] 16.7 % High 11.6-14.6 [facility] Comment on above: Performed By: #### L 100.0100, L500.2500 #### [facility] [address] [place], [address] Hematocrit (Bld) [Volume fraction] 27.3 % Low 40-54 [facility] Comment on above: Performed By: #### L 100.0100, L500.2500 #### [facility] [address] [place], [address] Hemoglobin (Bld) [Mass/Vol] 8.7 g/dL Low 13.0-16.5 [facility] Comment on above: Performed By: #### L 100.0100, L500.2500 #### [facility] [address] [place], [address] IG% 2.900 High 0.0-0.9 [facility] Comment on above: Result Comment: IG% - Immature Granulocytes (promyelocytes, myelocytes and metamyelocytes) > 1% indicates that a LEFT SHIFT is Present. Performed By: #### L 100.0100, L500.2500 #### [facility] [address] [place], [address] Lymphocytes/100 WBC (Bld) 17.1 % Low 19-41 [facility] Comment on above: Performed By: #### L 100.0100, L500.2500 #### [facility] [address] [place], [address] MCH (RBC) [Entitic mass] 26.2 pg Low 27.0-32.0 [facility] Comment on above: Performed By: #### L 100.0100, L500.2500 #### [facility] [address] [place], [address] MCHC (RBC) [Mass/Vol] 31.9 g/dL Low 32-36 [facility] Comment on above: Performed By: #### L 100.0100, L500.2500 #### [facility] [address] [place], [address] MCV (RBC) [Entitic vol] 82.2 fL Normal 80-94 [facility] Comment on above: Performed By: #### L 100.0100, L500.2500 #### [facility] [address] [place], [address] Monocytes/100 WBC (Bld) 15.9 % High 0-10 [facility] Comment on above: Performed By: #### L 100.0100, L500.2500 #### [facility] [address] [place], [address] Neutrophils/100 WBC (Bld) 63.2 % Normal 47-70 [facility] Comment on above: Performed By: #### L 100.0100, L500.2500 #### [facility] [address] [place], [address] Nucleated RBC (Bld) [#/Vol] 0 10*3/uL Normal 0-5 [facility] Comment on above: Performed By: #### L 100.0100, L500.2500 #### [facility] [address] [place], [address] Platelet mean volume (Bld) [Entitic vol] 8.7 fL Normal 6.2-12.0 [facility] Comment on above: Performed By: #### L 100.0100, L500.2500 #### [facility] [address] [place], [address] Platelets (Bld) [#/Vol] 239 10*3/uL Normal 150-450 [facility] Comment on above: Performed By: #### L 100.0100, L500.2500 #### [facility] [address] [place], [address] RBC (Bld) [#/Vol] 3.32 10*6/uL Low 4.6-6.2 [facility] Comment on above: Performed By: #### L 100.0100, L500.2500 #### [facility] [address] [place], [address] RDW SD 49.8 fl High 35.1-43.9 [facility] Comment on above: Performed By: #### L 100.0100, L500.2500 #### [facility] [address] [place], [address] WBC (Bld) [#/Vol] 8.1 10*3/uL Normal 4.4-11.0 [facility] Comment on above: Performed By: #### L 100.0100, L500.2500 #### [facility] [address] [place], [address] Carbon dioxide, total [Moles /volume] in Central venous bloodOrdered By: Pedro Banegas on 08-08-2025 CO2 [Moles/Vol] 23.3 mmol/L 21.0-32.0 [facility] Chloride assayOrdered By: Alan Banegas on 08-08-2025 Chloride [Moles/Vol] 105 mmol/L 98-108 [facility] Eosinophil percentageOrdered By: Pedro Banegas on 08-08-2025 Eosinophils/100 WBC (Bld) 0.7 % 0-5 [facility] Erythrocyte distribution wid th ratioOrdered By: Pedro Banegas on 08-08-2025 Erythrocyte distribution width (RBC) [Ratio] 16.7 % High 11.6-14.6 [facility] Erythrocyte distribution wid th standard deviationOrdered By: Pedro Banegas on 08-08-2025 Erythrocyte distribution width (RBC) [Ratio] 49.8 fl High 35.1-43.9 [facility] Glomerular filtration rate ( GFR) estimation/1.73 sq m using serum, plasma, or whole bOrdered By: Pedro Banegas on 08-08-2025 GFR/1.73 sq M.predicted among non-blacks MDRD (S/P/Bld) [Vol rate/Area] 69 mL/min/{1.73_m2} >60 [facility] Comment on above: mL/min/1.73m2 CKD-EP I Creatinine Equation (2020) Hematocrit Auto (Bld) [Volum e fraction]Ordered By: Pedro Banegas on 08-08-2025 Hematocrit (Bld) [Volume fraction] 27.3 % Low 40-54 [facility] Hemoglobin measurementOrdere d By: Pedro Banegas on 08-08-2025 Hemoglobin (Bld) [Mass/Vol] 8.7 g/dL Low 13.0-16.5 [facility] Immature granulocytes/100 WB C Auto (Bld)Ordered By: Pedro Banegas on 08-08-2025 Immature granulocytes/100 WBC (Bld) 2.900 % High 0.0-0.9 [facility] Comment on above: IG% - Immature Granu locytes (promyelocytes, myelocytes and metamyelocytes) > 1% indicates that a LEFT SHIFT is Present. MCV (mean corpuscular volume ) determinationOrdered By: Pedro Banegas on 08-08-2025 MCV (RBC) [Entitic vol] 82.2 fL 80-94 [facility] Mean corpuscular hemoglobin (MCH) determinationOrdered By: Pedro Banegas 08-08-2025 MCH (RBC) [Entitic mass] 26.2 pg Low 27.0-32.0 [facility] Mean corpuscular hemoglobin concentration (MCHC) determinationOrdered By: Pedro Banegas on 08-08-2025 MCHC (RBC) [Mass/Vol] 31.9 g/dL Low 32-36 [facility] Comment on above: Delta: 29.7 on 08/06 Mean platelet volume determi nationOrdered By: Pedro Banegas on 08-08-2025 Platelet mean volume (Bld) [Entitic vol] 8.7 fL 6.2-12.0 [facility] Monocyte percentageOrdered B y: Pedro Banegas on 08-08-2025 Monocytes/100 WBC (Bld) 15.9 % High 0-10 [facility] Neutrophil percentageOrdered By: Pedro Banegas on 08-08-2025 Neutrophils/100 WBC (Bld) 63.2 % 47-70 [facility] Nucleated red blood cell per centageOrdered By: Pedro Banegas on 08-08-2025 Nucleated RBC/100 WBC (Bld) [Ratio] 0 % 0-5 [facility] Platelet countOrdered By: Alan Banegas on 08-08-2025 Platelets (Bld) [#/Vol] 239 10*3/uL 150-450 [facility] Potassium measurement (mass/ volume)Ordered By: Pedro Banegas on 08-08-2025 Potassium (Unsp spec) [Mass/Vol] 4.6 mmol/L 3.3-5.1 [facility] RBC Auto (Bld) [#/Vol]Ordere d By: Pedro Banegas on 08-08-2025 RBC (Bld) [#/Vol] 3.32 10*6/uL Low 4.6-6.2 [facility] Serum creatinine measurement (mass/volume)Ordered By: Pedro Banegas on 08-08-2025 Creatinine [Mass/Vol] 1.04 mg/dL 0.70-1.20 [facility] Serum glucose measurement (m ass/volume)Ordered By: Pedro Banegas on 08-08-2025 Glucose [Mass/Vol] 97 mg/dL 70-99 [facility] Serum or plasma calcium donna urement (mass/volume)Ordered By: Pedro Banegas on 08-08-2025 Calcium [Mass/Vol] 8.4 mg/dL 7.6-11.0 [facility] Serum or plasma urea nitroge n measurement (mass/volume)Ordered By: Pedro Banegas on 08-08-2025 Urea nitrogen [Mass/Vol] 20 mg/dL High 4-19 [facility] Sodium levelOrdered By: Melita Banegas on 08-08-2025 Sodium [Moles/Vol] 137 mmol/L 133-145 [facility] White blood cell (WBC) count Ordered By: Pedro Banegas on 08-08-2025 WBC (Bld) [#/Vol] 8.1 10*3/uL 4.4-11.0 [facility] Electrocardiogram reportOrde red By: Marlon Santana on 08-07-2025 EKG study [facility] [address] [place] [address] 12 Lead EKG 08/04/25 1203 MR#: [id number] Acct: [id number] Name: ELIAS SHAH Rep #:[id number] : 1940 85 From: Marlon sanchez MD Attending Dr: Dr. Pedro Banegas MD Status: ADM IN Ordering Dr: Ted Mtz MD Date: 08/04/25 Location: [facility] – [place] Sex: M C Admitted: 08/05/25 Test Reason : Blood Pressure : */* mmHG Vent. Rate : 94 BPM Atrial Rate : * BPM P-R Int : * ms QRS Dur : 148 ms QT Int : 412 ms P-R-T Axes : * -58 93 degrees QTcB Int : 515 ms Atrial fibrillation Left axis deviation Left bundle branch block Abnormal ECG Confirmed by Marlon Santana ([id number]), photography editor DONNIE SALINAS ([id number]) on 08/07/2025 1:08:31 PM Referred By: KD Confirmed By: Marlon Santana 08/07/25 4458 Date _ Marlon Santana MD CC: Dr. Ted Mtz MD; Dr. Pedro Banegas MD; Dr. Husam Khan MD ~ Signed [facility] Other Phone: Absolute lymphocyte countOrd ered By: Jim Adams on 08-06-2025 Lymphocytes Auto (Unsp spec) [#/Vol] 1.37 10*3/uL 0.83-4.51 [facility] Absolute neutrophil countOrd ered By: Jim Adams on 08-06-2025 Neutrophils (Bld) [#/Vol] 13.4 10*3/uL High 2.0-7.7 [facility] Anion gap in Serum or Plasma Ordered By: Jim Adams on 08-06-2025 Anion gap [Moles/Vol] 10 mmol/L 5-15 [facility] Automated lymphocyte count a s percentage of total leukocytesOrdered By: Jim Adams on 08-06-2025 Lymphocytes/100 WBC Auto (Unsp spec) 8.0 % Low 19-41 [facility] BUN/creatinine ratioOrdered By: Jim Adams on 08-06-2025 Urea nitrogen/Creatinine [Mass ratio] 24.3 mg/mg High 10-20 [facility] Basic Metabolic Profile (BMP )on 08-06-2025 BUN/CRE 24.3 RATIO High - [facility] Comment on above: Performed By: #### L 100.0100, L500.2500 #### [facility] [address] [place], [address] Calcium [Mass/Vol] 8.0 mg/dL Normal 7.6-11.0 [facility] Comment on above: Performed By: #### L 100.0100, L500.2500 #### [facility] [address] [place], [address] Chloride [Moles/Vol] 107 mmol/L Normal 98-108 [facility] Comment on above: Performed By: #### L 100.0100, L500.2500 #### [facility] [address] [place], [address] CO2 [Moles/Vol] 18.5 mmol/L Low 21.0-32.0 [facility] Comment on above: Performed By: #### L 100.0100, L500.2500 #### [facility] [address] [place], [address] Creatinine [Mass/Vol] 1.00 mg/dL Normal 0.70-1.20 [facility] Comment on above: Performed By: #### L 100.0100, L500.2500 #### [facility] [address] [place], [address] ECRCL 58.09 ml/min Normal 50-250 [facility] Comment on above: Performed By: #### L 100.0100, L500.2500 #### [facility] [address] [place], [address] GAP 10 Normal 5-15 [facility] Comment on above: Performed By: #### L 100.0100, L500.2500 #### [facility] [address] [place], [address] GFR/1.73 sq M.predicted among non-blacks MDRD (S/P/Bld) [Vol rate/Area] 73 mL/min/{1.73_m2} Normal >60 [facility] Comment on above: Result Comment: mL/m in/1.73m2 CKD-EPI Creatinine Equation (2020) Performed By: #### L 100.0100, L500.2500 #### [facility] [address] [place], [address] Glucose [Mass/Vol] 121 mg/dL High 70-99 [facility] Comment on above: Performed By: #### L 100.0100, L500.2500 #### [facility] [address] [place], [address] Potassium [Moles/Vol] 4.7 mmol/L Normal 3.3-5.1 [facility] Comment on above: Performed By: #### L 100.0100, L500.2500 #### [facility] [address] [place], [address] Sodium [Moles/Vol] 135 mmol/L Normal 133-145 [facility] Comment on above: Performed By: #### L 100.0100, L500.2500 #### [facility] [address] [place], [address] Urea nitrogen [Mass/Vol] 24 mg/dL High 4- [facility] Comment on above: Performed By: #### L 100.0100, L500.2500 #### [facility] [address] [place], [address] Basophil percentageOrdered B y: Jim Adams on 08-06-2025 Basophils/100 WBC (Bld) 0.2 % 0-1 [facility] Blood cultureOrdered By: Amy Banegas on 08-06-2025 Bacteria identified Cx Nom (Bld) No growth in 5 days. [facility] Blood manual differential co mment interpretation (narrative result)Ordered By: Jim Adams on 08-06-2025 Manual differential comment Carlin (Bld) [Interp] SCANNED [facility] Comment on above: MONOCYTOSIS PRESENT CBC W/Diff, Automatedon 07-24 SMEAR COMMENT SCANNED Normal [facility] Comment on above: Result Comment: MONO CYTOSIS PRESENT Performed By: #### L 100.0100, L500.2500 #### [facility] [address] [place], [address] Carbon dioxide, total [Moles /volume] in Central venous bloodOrdered By: Jim Adams on 08-06-2025 CO2 [Moles/Vol] 18.5 mmol/L Low 21.0-32.0 [facility] Chloride assayOrdered By: Alannah Adams on 08-06-2025 Chloride [Moles/Vol] 107 mmol/L 98-108 [facility] Eosinophil percentageOrdered By: Jim Adams on 08-06-2025 Eosinophils/100 WBC (Bld) 0.0 % 0-5 [facility] Erythrocyte distribution wid th ratioOrdered By: Jim Adams on 08-06-2025 Erythrocyte distribution width (RBC) [Ratio] 16.5 % High 11.6-14.6 [facility] Erythrocyte distribution wid th standard deviationOrdered By: Jim Adams on 08-06-2025 Erythrocyte distribution width (RBC) [Ratio] 49.5 fl High 35.1-43.9 [facility] Glomerular filtration rate ( GFR) estimation/1.73 sq m using serum, plasma, or whole bOrdered By: Jim Adams on 08-06-2025 GFR/1.73 sq M.predicted among non-blacks MDRD (S/P/Bld) [Vol rate/Area] 73 mL/min/{1.73_m2} >60 [facility] Comment on above: mL/min/1.73m2 CKD-EP I Creatinine Equation (2020) Hematocrit Auto (Bld) [Volum e fraction]Ordered By: Jim Adams on 08-06-2025 Hematocrit (Bld) [Volume fraction] 26.9 % Low 40-54 [facility] Hemoglobin measurementOrdere d By: Jim Adams on 08-06-2025 Hemoglobin (Bld) [Mass/Vol] 8.0 g/dL Low 13.0-16.5 [facility] Immature granulocytes/100 WB C Auto (Bld)Ordered By: Jim Adams on 08-06-2025 Immature granulocytes/100 WBC (Bld) 2.500 % High 0.0-0.9 [facility] Comment on above: IG% - Immature Granu locytes (promyelocytes, myelocytes and metamyelocytes) > 1% indicates that a LEFT SHIFT is Present. MCV (mean corpuscular volume ) determinationOrdered By: Jim Adams on 08-06-2025 MCV (RBC) [Entitic vol] 83.0 fL 80-94 [facility] Mean corpuscular hemoglobin (MCH) determinationOrdered By: Jim Adams on 08-06-2025 MCH (RBC) [Entitic mass] 24.7 pg Low 27.0-32.0 [facility] Mean corpuscular hemoglobin concentration (MCHC) determinationOrdered By: Jim Adams on 08-06-2025 MCHC (RBC) [Mass/Vol] 29.7 g/dL Low 32-36 [facility] Mean platelet volume determi nationOrdered By: Jim Adams on 08-06-2025 Platelet mean volume (Bld) [Entitic vol] 9.1 fL 6.2-12.0 [facility] Monocyte percentageOrdered B y: Jim Adams on 08-06-2025 Monocytes/100 WBC (Bld) 10.9 % High 0-10 [facility] Neutrophil percentageOrdered By: Jim Adams on 08-06-2025 Neutrophils/100 WBC (Bld) 78.4 % High 47-70 [facility] Nucleated red blood cell per centageOrdered By: Jim Adams on 08-06-2025 Nucleated RBC/100 WBC (Bld) [Ratio] 0 % 0-5 [facility] Platelet countOrdered By: Alannah Adams on 08-06-2025 Platelets (Bld) [#/Vol] 237 10*3/uL 150-450 [facility] Potassium measurement (mass/ volume)Ordered By: Jim Adams on 08-06-2025 Potassium (Unsp spec) [Mass/Vol] 4.7 mmol/L 3.3-5.1 [facility] RBC Auto (Bld) [#/Vol]Ordere d By: Jim Adams on 08-06-2025 RBC (Bld) [#/Vol] 3.24 10*6/uL Low 4.6-6.2 [facility] Serum creatinine measurement (mass/volume)Ordered By: Jim Adams on 08-06-2025 Creatinine [Mass/Vol] 1.00 mg/dL 0.70-1.20 [facility] Serum glucose measurement (m ass/volume)Ordered By: Jim Adams on 08-06-2025 Glucose [Mass/Vol] 121 mg/dL High 70-99 [facility] Serum or plasma calcium donna urement (mass/volume)Ordered By: Jim Adams on 08-06-2025 Calcium [Mass/Vol] 8.0 mg/dL 7.6-11.0 [facility] Serum or plasma urea nitroge n measurement (mass/volume)Ordered By: Jim Adams on 08-06-2025 Urea nitrogen [Mass/Vol] 24 mg/dL High 4-19 [facility] Sodium levelOrdered By: Yazan Adams on 08-06-2025 Sodium [Moles/Vol] 135 mmol/L 133-145 [facility] White blood cell (WBC) count Ordered By: Jim Adams on 08-06-2025 WBC (Bld) [#/Vol] 17.1 10*3/uL High 4.4-11.0 [facility] Basic Metabolic Profile (BMP )on 08-05-2025 BUN/CRE 26.3 RATIO High 10-20 [facility] Comment on above: Performed By: #### L 100.0100, L500.2500 #### [facility] [address] [place], [address] Calcium [Mass/Vol] 7.9 mg/dL Normal 7.6-11.0 [facility] Comment on above: Performed By: #### L 100.0100, L500.2500 #### [facility] [address] [place], [address] Chloride [Moles/Vol] 106 mmol/L Normal 98-108 [facility] Comment on above: Performed By: #### L 100.0100, L500.2500 #### [facility] [address] [place], [address] CO2 [Moles/Vol] 21.1 mmol/L Normal 21.0-32.0 [facility] Comment on above: Performed By: #### L 100.0100, L500.2500 #### [facility] [address] [place], [address] Creatinine [Mass/Vol] 1.31 mg/dL High 0.70-1.20 [facility] Comment on above: Performed By: #### L 100.0100, L500.2500 #### [facility] [address] [place], [address] ECRCL 44.34 ml/min Low 50-250 [facility] Comment on above: Performed By: #### L 100.0100, L500.2500 #### [facility] [address] [place], [address] GAP 11 Normal 5-15 [facility] Comment on above: Performed By: #### L 100.0100, L500.2500 #### [facility] [address] [place], [address] GFR/1.73 sq M.predicted among non-blacks MDRD (S/P/Bld) [Vol rate/Area] 53 mL/min/{1.73_m2} Low >60 [facility] Comment on above: Result Comment: mL/m in/1.73m2 CKD-EPI Creatinine Equation (2020) Performed By: #### L 100.0100, L500.2500 #### [facility] [address] [place], [address] Glucose [Mass/Vol] 114 mg/dL High 70-99 [facility] Comment on above: Performed By: #### L 100.0100, L500.2500 #### [facility] [address] [place], [address] Potassium [Moles/Vol] 4.6 mmol/L Normal 3.3-5.1 [facility] Comment on above: Performed By: #### L 100.0100, L500.2500 #### [facility] [address] [place], [address] Sodium [Moles/Vol] 138 mmol/L Normal 133-145 [facility] Comment on above: Performed By: #### L 100.0100, L500.2500 #### [facility] [address] [place], [address] Urea nitrogen [Mass/Vol] 35 mg/dL High 4-19 [facility] Comment on above: Performed By: #### L 100.0100, L500.2500 #### [facility] [address] [place], [address] CBC-Complete Blood Cnt No Di ffon 08-05-2025 Erythrocyte distribution width (RBC) [Ratio] 16.8 % High 11.6-14.6 [facility] Comment on above: Performed By: #### L 100.0100, L500.2500 #### [facility] [address] [place], [address] Hematocrit (Bld) [Volume fraction] 27.9 % Low 40-54 [facility] Comment on above: Performed By: #### L 100.0100, L500.2500 #### [facility] [address] [place], [address] Hemoglobin (Bld) [Mass/Vol] 8.6 g/dL Low 13.0-16.5 [facility] Comment on above: Performed By: #### L 100.0100, L500.2500 #### [facility] [address] [place], [address] MCH (RBC) [Entitic mass] 25.9 pg Low 27.0-32.0 [facility] Comment on above: Performed By: #### L 100.0100, L500.2500 #### [facility] [address] [place], [address] MCHC (RBC) [Mass/Vol] 30.8 g/dL Low 32-36 [facility] Comment on above: Performed By: #### L 100.0100, L500.2500 #### [facility] [address] [place], [address] MCV (RBC) [Entitic vol] 84.0 fL Normal 80-94 [facility] Comment on above: Performed By: #### L 100.0100, L500.2500 #### [facility] [address] [place], [address] Platelet mean volume (Bld) [Entitic vol] 9.0 fL Normal 6.2-12.0 [facility] Comment on above: Performed By: #### L 100.0100, L500.2500 #### [facility] [address] [place], [address] Platelets (Bld) [#/Vol] 248 10*3/uL Normal 150-450 [facility] Comment on above: Performed By: #### L 100.0100, L500.2500 #### [facility] [address] [place], [address] RBC (Bld) [#/Vol] 3.32 10*6/uL Low 4.6-6.2 [facility] Comment on above: Performed By: #### L 100.0100, L500.2500 #### [facility] [address] [place], [address] RDW SD 49.7 fl High 35.1-43.9 [facility] Comment on above: Performed By: #### L 100.0100, L500.2500 #### [facility] [address] [place], [address] WBC (Bld) [#/Vol] 13.8 10*3/uL High 4.4-11.0 [facility] Comment on above: Performed By: #### L 100.0100, L500.2500 #### [facility] [address] [place], [address] Ferritinon 08-05-2025 Ferritin [Mass/Vol] 521 ng/mL High 37-417 [facility] Comment on above: Performed By: #### L 500.4050, L503.0106, L503.6030 #### [facility] [address] [facility] [address] [place], [place], [address] Iron measurement (mass/mass) Ordered By: Jim Adams on 08-05-2025 Iron (Unsp spec) [Mass/Mass] 14 ug/dL Low 65-175 [facility] Iron+Iron Binding Capacityon 08-05-2025 TIBC 149 ug/dL Low 250-450 [facility] Comment on above: Performed By: #### L 500.4050, L503.0106, L503.6030 #### [facility] [address] [place], [place], [id number] No Panel InformationOrdered By: Jim Adams on 08-05-2025 Unsaturated Iron Binding Capacity 135 ug/dL Low 228-428 [facility] 135 ug/dL Low 228-428 [facility] Serum or plasma ferritin yosef surement (mass/volume)Ordered By: Jim Adams on 08-05-2025 Ferritin [Mass/Vol] 521 ng/mL High 37-417 [facility] Serum or plasma iron saturat ion measurement (mass fraction)Ordered By: Jim Adams on 08-05-2025 Iron saturation [Mass fraction] 9.4 % 9-55 [facility] Comment on above: Previous reported re sult: 9.6 %Edited by: SCOTT on 08/05/25:1732 AMENDED REPORT 08/05/25 1732 IRON SATURATION previously reported as: 9.6 % 12 Lead EKGon 08-04-2025 12 Lead EKG [facility] Cardiovascular Services [address] [place] [address] 12 Lead EKG 08/04/25 1203 MR#: [id number] Acct: [id number] Name: ELIAS SHAH Rep #: [id number] : 1940 85 From: Marlon Santana MD Attending Dr: Dr. Pedro Banegas MD Status: ADM IN Ordering Dr: Ted Mtz MD Date: 08/04/25 Location: [facility] Sex: M C Admitted: 08/05/25 Test Reason : Blood Pressure : */* mmHG Vent. Rate : 94 BPM Atrial Rate : * BPM P-R Int : * ms QRS Dur : 148 ms QT Int : 412 ms P-R-T Axes : * -58 93 degrees QTcB Int : 515 ms Atrial fibrillation Left axis deviation Left bundle branch block Abnormal ECG Confirmed by Marlon Santana ([id number]), photography editor DONNIE SALINAS ([id number]) on 08/07/2025 1:08:31 PM Referred By: KD Confirmed By: Marlon Santana 08/07/25 1308 Date Marlon Santana MD CC: Dr. Ted Mtz MD; Dr. Pedro Banegas MD; Dr. Husam Khan MD Signed Normal [facility] Absolute lymphocyte countOrd ered By: Ted Mtz on 08-04-2025 Lymphocytes Auto (Unsp spec) [#/Vol] 0.96 10*3/uL 0.83-4.51 [facility] Absolute neutrophil countOrd ered By: Ted Mzt on 08-04-2025 Neutrophils (Bld) [#/Vol] 11.4 10*3/uL High 2.0-7.7 [facility] Anion gap in Serum or Plasma Ordered By: eTd Mtz on 08-04-2025 Anion gap [Moles/Vol] 11 mmol/L 5-15 [facility] Automated lymphocyte count a s percentage of total leukocytesOrdered By: Ted Mtz on 08-04-2025 Lymphocytes/100 WBC Auto (Unsp spec) 6.6 % Low 19-41 [facility] BUN/creatinine ratioOrdered By: Ted Mtz on 08-04-2025 Urea nitrogen/Creatinine [Mass ratio] 25.4 mg/mg High 10-20 [facility] Basophil percentageOrdered B y: Ted Mtz on 08-04-2025 Basophils/100 WBC (Bld) 0.1 % 0-1 [facility] Bilirubin Test strip Ql (U)O rdered By: Ted Mtz on 08-04-2025 Bilirubin Ql (U) Negative Negative [facility] Bilirubin, totalOrdered By: Ted Mtz on 08-04-2025 Bilirubin [Mass/Vol] 0.30 mg/dL 0.00-1.30 [facility] Blood manual differential co mment interpretation (narrative result)Ordered By: Ted Mtz on 08-04-2025 Manual differential comment Carlin (Bld) [Interp] COMMENT [facility] Comment on above: MONOCYTOSIS. CBC W/Diff, Automatedon 07-24 SMEAR COMMENT COMMENT Normal [facility] Comment on above: Result Comment: MONO CYTOSIS. Performed By: #### L 100.0100, L500.2500 #### [facility] [address] [facility] [place], [place], [id number] Carbon dioxide, total [Moles /volume] in Central venous bloodOrdered By: Ted Mtz on 08-04-2025 CO2 [Moles/Vol] 24.4 mmol/L 21.0-32.0 [facility] Chest 1 View (Portable)on Chest 1 View (Portable) [facility] Imaging Services [address] [place], [place] [address] Chest 1 View (Portable) MR#: [id number] Acct: [id number] Name: ELIAS SHAH Rep #: [id number] : 1940 M 85 From: Kings ayala MD PCP: Dr. Husam Khan MD Status: REG ER Study: Chest 1 View (Portable) Date of Exam: 08/04/25 Exam# [id number] Ordering Dr: Ted Mtz MD PROCEDURE: CHEST 1 VIEW (PORTABLE) 08/04/2025 REASON FOR EXAM: WEAKNESS TECHNIQUE: Frontal view of the chest. COMPARISON: Prior study dated September 01, 2019. FINDINGS: Hardware: EKG electrodes are seen. Status post midline sternotomy. Mitral valve replacement. Heart: The heart is nonenlarged. Mitral valve replacement. Lungs: Stable elevation of the left hemidiaphragm. The lungs are clear. Bones: Degenerative changes are identified within the thoracic spine. Degenerative changes of the right shoulder. Other: RAD/Chest 1 View (Portable) IMPRESSION: No Acute Findings. Stable examination. Reading Location: [id number] CC: Dr. Ted Mtz MD; Dr. Husam Khan MD 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: Signed Normal [facility] Chloride assayOrdered By: Juan Mtz on 08-04-2025 Chloride [Moles/Vol] 101 mmol/L 98-108 [facility] Comprehensive Metabolic Prof ilon 08-04-2025 Albumin [Mass/Vol] 2.7 g/dL Low 3.4-4.8 [facility] Comment on above: Performed By: #### L 100.0100, L500.2500 #### [facility] [address] [place], [address] Albumin/Globulin [Mass ratio] 0.7 {ratio} Low 0.9-2.4 [facility] Comment on above: Performed By: #### L 100.0100, L500.2500 #### [facility] [address] [place], [address] ALK PHOS 112 U/L Normal 40-129 [facility] Comment on above: Performed By: #### L 100.0100, L500.2500 #### [facility] [address] [place], [address] ALT [Catalytic activity/Vol] 83 U/L High <=46 [facility] Comment on above: Performed By: #### L 100.0100, L500.2500 #### [facility] [address] [place], [address] AST [Catalytic activity/Vol] 114 U/L High <=37 [facility] Comment on above: Performed By: #### L 100.0100, L500.2500 #### [facility] [address] [place], [address] Bilirubin [Mass/Vol] 0.30 mg/dL Normal 0.00-1.30 [facility] Comment on above: Performed By: #### L 100.0100, L500.2500 #### [facility] [address] [place], [address] BUN/CRE 25.4 RATIO High 10-20 [facility] Comment on above: Performed By: #### L 100.0100, L500.2500 #### [facility] [address] [place], [address] Calcium [Mass/Vol] 8.4 mg/dL Normal 7.6-11.0 [facility] Comment on above: Performed By: #### L 100.0100, L500.2500 #### [facility] [address] [place], [address] Chloride [Moles/Vol] 101 mmol/L Normal 98-108 [facility] Comment on above: Performed By: #### L 100.0100, L500.2500 #### [facility] [address] [place], [address] CO2 [Moles/Vol] 24.4 mmol/L Normal 21.0-32.0 [facility] Comment on above: Performed By: #### L 100.0100, L500.2500 #### [facility] [address] [place], [address] Creatinine [Mass/Vol] 1.53 mg/dL High 0.70-1.20 [facility] Comment on above: Performed By: #### L 100.0100, L500.2500 #### [facility] [address] [place], [address] ECRCL 37.98 ml/min Low 50-250 [facility] Comment on above: Performed By: #### L 100.0100, L500.2500 #### [facility] [address] [place], [address] GAP 11 Normal 5-15 [facility] Comment on above: Performed By: #### L 100.0100, L500.2500 #### [facility] [address] [place], [address] GFR/1.73 sq M.predicted among non-blacks MDRD (S/P/Bld) [Vol rate/Area] 44 mL/min/{1.73_m2} Low >60 [facility] Comment on above: Result Comment: mL/m in/1.73m2 CKD-EPI Creatinine Equation (2020) Performed By: #### L 100.0100, L500.2500 #### [facility] [address] [place], [address] Globulin (S) [Mass/Vol] 3.8 g/dL Normal 2.2-4.2 [facility] Comment on above: Performed By: #### L 100.0100, L500.2500 #### [facility] [address] [place], [address] Glucose [Mass/Vol] 158 mg/dL High 70-99 [facility] Comment on above: Performed By: #### L 100.0100, L500.2500 #### [facility] [address] [place], [address] Potassium [Moles/Vol] 4.3 mmol/L Normal 3.3-5.1 [facility] Comment on above: Performed By: #### L 100.0100, L500.2500 #### [facility] [address] [place], [address] Sodium [Moles/Vol] 137 mmol/L Normal 133-145 [facility] Comment on above: Performed By: #### L 100.0100, L500.2500 #### [facility] [address] [place], [address] T PROT 6.5 g/dL Normal 5.9-8.4 [facility] Comment on above: Performed By: #### L 100.0100, L500.2500 #### [facility] [address] [place], [address] Urea nitrogen [Mass/Vol] 39 mg/dL High 4-19 [facility] Comment on above: Performed By: #### L 100.0100, L500.2500 #### [facility] [address] [place], [address] Emergency Department Summary on 08-04-2025 Emergency Department Summary [facility] Medical Records Department [address] [place] [address] Emergency Department Summary 08/04/25 MR#: [id number] Acct: [id number] Name: ELIAS SHAH Rep #: [id number] : 1940 85 From: Ted Mtz MD PCP: Dr. Husam Khan MD Status:REG ER Location: ED HPI History of Present Illness Chief Complaint: Weakness Informant: patient and spouse/S.O. Narrative Narrative: 85-year-old male presenting for generalized weakness and trouble standing or walking due to pain in the right popliteal fossa where he had an aneurysm fixed by vascular surgery 2 days ago according to . She also suggest she is looking for respite care. Has been having trouble caring for him anymore, especially the condition he has been in for the past 2 days. She has been looking to getting him into a fdc facility recently, but his acute worsening since his surgery have limited their ability to do that quickly as an outpatient. He has had several near falls and has been very weak. [facility] Medical History Macular degeneration Iron [...] PO BID #180 tabs 03/28/24 Unknown Rx hydralazine 50 mg tablet 50 mg PO TID #270 TABLETS 04/04/25 08/02/25 Rx amlodipine 5 mg tablet 5 mg PO QHS #90 tabs 06/22/2507/24 Rx vit C 250 mg-vit E 90 mg-zinc 40 1 tab PO BID 06/22/25 Unknown Hist ory mg-copper 1 mu-orijrj-gneacm capsule (PreserVision AREDS-2) rosuvastatin 20 mg tablet (Crestor) 10 mg (1/2 x 20 mg) PO DAILY #3 0 07/14/25 Unknown Rx tabs albuterol sulfate 90 mcg/actuation 2 puff inhalation Q6H PRN Unknown History aerosol inhaler shortness of breath or wheezing clopidogrel 75 mg tablet 75 mg PO DAILY #90 tabs 08/03/25 U nknown Rx losartan 50 mg tablet 50 mg PO DAILY #90 tabs 08/03/25 U nknown Rx Allergy/AdvReac Type Severity Reaction Status Date / [...] beverages and coffee eating out: 1-3 times/week adán/judaism: Gnosticism seatbelt use: always do you feel safe at home: Yes ROS ROS ED Constitutional Constitutional ED: Reports weakness; Denies chills or fever(s) Eyes Eyes: Denies change in vision or diplopia ENT ENT ED: Denies rhinorrhea or sore throat Cardiovascular Cardiovascular: Denies chest pain or palpitations Respiratory/Chest Respiratory/Chest: Denies cough or dyspnea Gastrointestinal Gastrointestinal: Denies abdominal pain, diarrhea, nausea or vomiting Genitourinary Genitourinary ED: Denies dysuria or hematuria Musculoskeletal Musculoskeletal: Reports as per HPI and extremity pain; Denies back pain or neck pain Integumentary Denies abscess or rash Neurologic Neurologic: Denies headache (more content not included)... Normal [facility] Eosinophil percentageOrdered By: Ted Mtz on 08-04-2025 Eosinophils/100 WBC (Bld) 0.1 % 0-5 [facility] Erythrocyte distribution wid th ratioOrdered By: Ted Mtz on 08-04-2025 Erythrocyte distribution width (RBC) [Ratio] 16.8 % High 11.6-14.6 [facility] Erythrocyte distribution wid th standard deviationOrdered By: Ted Mtz on 08-04-2025 Erythrocyte distribution width (RBC) [Ratio] 49.2 fl High 35.1-43.9 [facility] Glomerular filtration rate ( GFR) estimation/1.73 sq m using serum, plasma, or whole bOrdered By: Ted Mtz on 08-04-2025 GFR/1.73 sq M.predicted among non-blacks MDRD (S/P/Bld) [Vol rate/Area] 44 mL/min/{1.73_m2} Low >60 [facility] Comment on above: mL/min/1.73m2 CKD-EP I Creatinine Equation (2020) H AND P Exam - [facility] 08-04-2025 H&P Exam - Hospitalist [facility] Medical Records Department [address] [place] [address] H P Exam - Hospitalist 08/04/25 1608 MR#: [id number] Acct: [id number] Name: ELIAS SHAH Rep #: [id number] : 1940 85 From: Morgan Dubon DO PCP: Dr. Husam Khan MD Status:ADM JEET Location: [place] [address] HPI - General General Date of Admission: 08/04/25 Date of Service: 08/04/25 Chief Complaint: Weakness and difficulty with ambulation HPI Narrative ELIAS SHAH, is a 85 M who presented to [facility] ED on 08/04/2025 with weakness and difficulty with ambulation. Patient lives at home with his . He had a procedure done with Dr. Mckeon on 08/02. 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 Mckeon performed an angioplasty with stent placement in the right popliteal artery. Left groin was the access site for the procedure. Patient was fine for discharge home postprocedure but notes that he has had ongoing pain behind the right knee since then and difficulty with ambulation. Also has not been eating or drinking well since then. In the ED he was mildly hypotensive to the 100s over 60s and borderline tachycardic to the 90s but otherwise stable on room air at rest. CBC with WBC count 14, hemoglobin 8.9 (hemoglobin 9.3 preoperatively). BMP with creatinine 1.53, (baseline around 1.1-1.2). Dr. Avila noted that on exam the left groin site appeared to be healing well with no signs of infection, and the right knee appeared normal with no signs of swelling or erythema. He then discussed with Dr. Mckeon who noted that the patient had good bit of hematoma from the pseudoaneurysm and this would explain the pain behind the knee currently. Noted no need for repeat imaging or other vascular surgery workup at this time. Hospitalist was contacted for admission. I saw the patient at bedside in the ED, was present. Patient was mildly fatigued appearing but otherwise sitting back comfortably in bed, conversing normally, in no acute distress. He had been given a dose of IV morphine 2 mg for the knee pain and stated this was mildly helpful for him. notes that patient has required SNF placement in the past and she does not feel like she is able to take care of him at home right now and would like SNF placement for him if possible. Patient is agreeable to this. Patient notes that he generally feels weak and debilitated, but he denies any other acute pain aside from behind the right knee. Denies any pain at the left groin incision site. No other acute concerns currently. Will be admitted for further management. [facility] Medical History Macular degeneration Iron deficiency anemia [...] PO BID #180 tabs 03/28/24 Unknown Rx hydralazine 50 mg tablet 50 mg PO TID #270 TABLETS 04/04/25 08/02/25 Rx amlodipine 5 mg tablet 5 mg PO QHS #90 tabs 06/22/2507/24 Rx vit C 250 mg-vit E 90 mg-zinc 40 1 tab PO BID 06/22/25 Unknown Hist ory mg-copper 1 by-wrhcuv-ingyer capsule (PreserVision AREDS-2) rosuvastatin 20 mg tablet (Crestor) 10 mg (1/2 x 20 mg) PO DAILY #3 0 07/14/25 Unknown Rx tabs albuterol sulfate 90 mcg/actuation 2 puff inhalation Q6H PRN Unknown History aerosol inhaler shortness of breath or wheezing clopidogrel 75 mg tablet 75 mg PO DAILY #90 tabs 08/03/25 U nknown Rx losartan 50 mg tablet 50 mg PO DAILY #90 tabs 08/03/25 U nknown Rx Allergy/AdvReac Type Severity Reaction Status Date / Time atorvastatin AdvReac Intermediate M (more content not included)... Normal [facility] Hematocrit Auto (Bld) [Volum e fraction]Ordered By: Ted Mtz on 08-04-2025 Hematocrit (Bld) [Volume fraction] 28.7 % Low 40-54 [facility] Hemoglobin measurementOrdere d By: Ted Mtz on 08-04-2025 Hemoglobin (Bld) [Mass/Vol] 8.9 g/dL Low 13.0-16.5 [facility] Hyaline casts LM.LPF (Urine sed) [#/Area]Ordered By: Ted Mtz on 08-04-2025 Hyaline casts (Urine sed) [#/Area] 0 /[LPF] 0-5 [facility] Immature granulocytes/100 WB C Auto (Bld)Ordered By: Ted Mtz on 08-04-2025 Immature granulocytes/100 WBC (Bld) 2.400 % High 0.0-0.9 [facility] Comment on above: IG% - Immature Granu locytes (promyelocytes, myelocytes and metamyelocytes) > 1% indicates that a LEFT SHIFT is Present. Ketones Test strip Ql (U)Ord ered By: Ted Mtz on 08-04-2025 Ketones Ql (U) Negative Negative [facility] - Chemistry and C hemistry - challengeOrdered By: Ted Mtz on 08-04-2025 AST [Catalytic activity/Vol] 114 U/L High <38 [facility] Lactic Acidon 08-04-2025 Lactate [Moles/Vol] 1.4 mmol/L Normal 0.0-2.0 [facility] Comment on above: Performed By: #### L [id number] #### [facility] [address] [place], [place], [id number] Lactate [Moles/Vol] 2.0 mmol/L Normal 0.0-2.0 [facility] Comment on above: Order Comment: Y Result Comment: Crit ical Result(s) Called at 08/04/2025-13:28 by Brittanie Doyle??Results read back by same. Performed By: #### L 100.0100, L500.2500 #### [facility] [address] [place], [place], [address] Lactic acid measurementOrder ed By: Ted Mtz on 08-04-2025 Lactate [Moles/Vol] 1.4 mmol/L 0.0-2.0 [facility] Lactate [Moles/Vol] 2.0 mmol/L 0.0-2.0 [facility] Comment on above: Critical Result(s) C alled at 08/04/2025-13:28 by Brittanie Doyle Results read back by same. MCV (mean corpuscular volume ) determinationOrdered By: Ted Mtz on 08-04-2025 MCV (RBC) [Entitic vol] 82.5 fL 80-94 [facility] Mean corpuscular hemoglobin (MCH) determinationOrdered By: Ted Mtz on 08-04-2025 MCH (RBC) [Entitic mass] 25.6 pg Low 27.0-32.0 [facility] Mean corpuscular hemoglobin concentration (MCHC) determinationOrdered By: Ted Mtz on 08-04-2025 MCHC (RBC) [Mass/Vol] 31.0 g/dL Low 32-36 [facility] Mean platelet volume determi nationOrdered By: Ted Mtz on 08-04-2025 Platelet mean volume (Bld) [Entitic vol] 9.0 fL 6.2-12.0 [facility] Microscopic analysis of urin e for red blood cells (RBC)Ordered By: Ted Mtz on 08-04-2025 Microscopic analysis of urine for red blood cells (RBC) 0-5 SEEN /hpf 0-5 [facility] Monocyte percentageOrdered B y: Ted Mtz on 08-04-2025 Monocytes/100 WBC (Bld) 12.6 % High 0-10 [facility] Mucus LM Ql (Urine sed)Order ed By: Ted Mtz on 08-04-2025 Mucus Ql (Urine sed) 0 SEEN /hpf [facility] Neutrophil percentageOrdered By: Ted Mtz on 08-04-2025 Neutrophils/100 WBC (Bld) 78.2 % High 47-70 [facility] Nitrite Test strip Ql (U)Ord ered By: eTd Mtz on 08-04-2025 Nitrite Ql (U) Negative Negative [facility] No Panel InformationOrdered By: Ted Mtz on 08-04-2025 114 U/L High <38 [facility] Nucleated red blood cell per centageOrdered By: Ted Mtz on 08-04-2025 Nucleated RBC/100 WBC (Bld) [Ratio] 0 % 0-5 [facility] Platelet countOrdered By: Juan Mtz on 08-04-2025 Platelets (Bld) [#/Vol] 234 10*3/uL 150-450 [facility] Potassium measurement (mass/ volume)Ordered By: Ted Mtz on 08-04-2025 Potassium (Unsp spec) [Mass/Vol] 4.3 mmol/L 3.3-5.1 [facility] Protein Test strip Ql (U)Ord ered By: Ted Mtz on 08-04-2025 Protein Ql (U) 30 mg/dl High Negative [facility] RBC Auto (Bld) [#/Vol]Ordere d By: Ted Mtz on 08-04-2025 RBC (Bld) [#/Vol] 3.48 10*6/uL Low 4.6-6.2 [facility] Serum creatinine measurement (mass/volume)Ordered By: Ted Mtz on 08-04-2025 Creatinine [Mass/Vol] 1.53 mg/dL High 0.70-1.20 [facility] Serum globulin measurementOr dered By: Ted Mtz on 08-04-2025 Globulin (S) [Mass/Vol] 3.8 g/dL 2.2-4.2 [facility] Serum glucose measurement (m ass/volume)Ordered By: Ted Mtz on 08-04-2025 Glucose [Mass/Vol] 158 mg/dL High 70-99 [facility] Serum or plasma alanine mccoy otransferase (ALT) measurementOrdered By: Ted Mtz on 08-04-2025 ALT [Catalytic activity/Vol] 83 U/L High <47 [facility] Serum or plasma albumin donna urement (mass/volume)Ordered By: Ted Mtz on 08-04-2025 Albumin [Mass/Vol] 2.7 g/dL Low 3.4-4.8 [facility] Serum or plasma albumin/glob ulin mass ratioOrdered By: Ted Mtz on 08-04-2025 Albumin/Globulin [Mass ratio] 0.7 {ratio} Low 0.9-2.4 [facility] Serum or plasma alkaline salvador sphatase measurementOrdered By: Ted Mtz on 08-04-2025 ALP [Catalytic activity/Vol] 112 U/L 40-129 [facility] Serum or plasma calcium donna urement (mass/volume)Ordered By: Ted Mtz on 08-04-2025 Calcium [Mass/Vol] 8.4 mg/dL 7.6-11.0 [facility] Serum or plasma urea nitroge n measurement (mass/volume)Ordered By: Ted Mtz on 08-04-2025 Urea nitrogen [Mass/Vol] 39 mg/dL High 4-19 [facility] Sodium levelOrdered By: Gopal Mtz on 08-04-2025 Sodium [Moles/Vol] 137 mmol/L 133-145 [facility] Squamous epithelial cells de tection in urine sediment by light microscopyOrdered By: Ted Mtz on 08-04-2025 Epithelial cells.squamous LM Ql (Urine sed) 0-5 SEEN /hpf 0-5 [facility] Total proteinOrdered By: Jamel salazar Kd on 08-04-2025 Protein [Mass/Vol] 6.5 g/dL 5.9-8.4 [facility] Urinalysis, Completeon 08-04 EPI,SQUAMOUS 0-5 SEEN Normal 0-5 [facility] Comment on above: Order Comment: UNK Performed By: #### L [id number], L503.0106, [id number] #### [facility] [address] [place], [address] RBC 0-5 SEEN Normal 0-5 [facility] Comment on above: Order Comment: UNK Performed By: #### L [id number], [id number], [id number] #### [facility] [address] [place], [address] WBC 0-5 SEEN Normal 0-5 [facility] Comment on above: Order Comment: UNK Performed By: #### L [id number], [id number], [id number] #### [facility] [address] [place], [address] CAST,FINE GRAN 0-5 SEEN Normal 0-5 [facility] Comment on above: Order Comment: UNK Performed By: #### L [id number], [id number], [id number] #### [facility] [address] [place], [address] CAST,HYALINE 0-5 SEEN Normal 0-5 [facility] Comment on above: Order Comment: UNK Performed By: #### L [id number], [id number], [id number] #### [facility] [address] [place], [address] BACTERIA 0 SEEN Normal None Seen [facility] Comment on above: Order Comment: UNK Performed By: #### L [id number], [id number], [id number] #### [facility] [address] [place], [address] Mucus Ql (Urine sed) [address] [facility] Comment on above: Order Comment: UNK Performed By: #### L [id number], [id number], [id number] #### [facility] [address] [place], [address] Urine clarityOrdered By: Jamel Mtz on 08-04-2025 Clarity (U) Sl. Cloudy Clear [facility] Urine color determinationOrd ered By: Ted Mtz on 08-04-2025 Color (U) Yellow Yellow [facility] Urine glucose detectionOrder ed By: Ted Mtz on 08-04-2025 Glucose Ql (U) Normal mg/dl Normal [facility] Urine leukocyte esterase det ection by dipstickOrdered By: Ted Mtz on 08-04-2025 Leukocyte esterase Test strip Ql (U) Negative Negative [facility] Urine pHOrdered By: Ted Mtz on 08-04-2025 pH (U) 5.0 [pH] 5.0 - 8.0 [facility] Urine sediment bacteria coun t by microscopy (number/high power field)Ordered By: Ted Mtz on 08-04-2025 Bacteria LM.HPF (Urine sed) [#/Area] 0 /[HPF] None Seen [facility] Urine sediment fine granular cast count by microscopy (number/low power field)Ordered By: Ted Mtz on 08-04-2025 Fine Granular Casts LM.LPF (Urine sed) [#/Area] 0-5 SEEN /lpf 0-5 [facility] Urine specific gravity measu rementOrdered By: Ted Mtz on 08-04-2025 Specific gravity (U) [Rel density] 1.020 1.002-1.030 [facility] Urine urobilinogen measureme ntOrdered By: Ted Mtz on 08-04-2025 Urobilinogen Ql (U) Normal mg/dl Normal [facility] White blood cell (WBC) count Ordered By: Ted Mtz on 08-04-2025 WBC (Bld) [#/Vol] 14.6 10*3/uL High 4.4-11.0 [facility] White blood cell countOrdere d By: Ted Mtz on 08-04-2025 White blood cell count 0-5 SEEN /hpf 0-5 [facility] Operative Reporton Operative Report [facility] Medical Records Department [address] [place] [address] Operative Report 08/02/25 1807 MR#: [id number] Acct: [id number] Name: ELIAS SHAH Rep #: [id number] : 1940 85 From: Channing Mckeon MD PCP: Dr. 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 He had a venous duplex which incidentally revealed a large right popliteal pseudoaneurysm approximately [address] angiography confirmed pseudoaneurysm with wide base with significant atherosclerotic burden proximal and distal within the popliteal artery. The distal popliteal artery appeared to be an adequate landing zone and there was some element of tibial occlusive disease with calcification though limited evaluation could be performed based on the CT scan. He is taken now for angiogram with right lower extremity runoff with plans for endovascular exclusion of the pseudoaneurysm if there is adequate tibial outflow. Description of procedure: Upon obtaining informed consent and verification correct patient procedure site the patient was taken to the Body Mechanic Apprentice he was positioned prepped and draped in usual sterile fashion. Timeout was performed, sedation was ministered with Versed and fentanyl. Skin overlying the left common femoral artery was anesthetized with 1% lidocaine the vessel accessed under ultrasound guidance with a micropuncture needle wire. This then exchanged for micropuncture sheath routine injection iliofemoral angiograms performed revealing satisfactory positioning with no extravasation or dissection. Through the micropuncture sheath a [employer] (NIH)son wire was advanced and the micropuncture sheath exchanged for a short 7 [place] sheath. Through the 7 [place] sheath an Omni Flush catheter was advanced into the abdominal aorta and a digital subtraction angiogram pelvic angiogram was performed. This revealed normal caliber abdominal aorta with moderate diffuse atherosclerosis but no significant stenosis. The left common iliac artery was dilated to 2.5 cm with moderate diffuse calcified atherosclerosis. The left external iliac artery was normal caliber with no significant atherosclerosis or stenosis. The right common iliac artery was similarly dilated to 2.5 cm with moderate diffuse calcified atherosclerosis. The right external iliac artery was patent with no significant atherosclerosis or stenosis. Utilizing a glide advantage wire and the Omni Flush catheter we navigated to the contralateral iliac system advancing the catheter into the distal external iliac artery. From this position subtraction angiography was performed sequentially the right lower extremity which revealed common femoral artery patent with mild atherosclerosis but no stenosis. The profundofemoral artery was large caliber vessel with no significant atherosclerosis or stenosis. The superficial femoral artery had scattered diffuse calcified atherosclerosis but no significant stenosis. The above-knee popliteal artery had moderate calcified atherosclerosis proximally with more severe bulky calcified atherosclerosis with stenosis distally above the knee. In the P2 segment there was a large pseudoaneurysm with significant active flow chamber with no free extravasation. The P3 popliteal artery had moderate calcified atherosclerosis proximally with return to normal contour and caliber distal. The anterior tibial artery appeared occluded at the origin with reconstitution distally. The tibioperoneal trunk had moderate calcified atherosclerosis with approximately 30% stenosis and then a large caliber peroneal artery runoff through the lower leg. The posterior tibial artery had significant atherosclerosis and was small caliber and diffusely diseased. Is felt that the tibioperoneal trunk and peroneal artery had sufficient outflow to support stent graft treatment of the pseudoaneurysm. The glide advantage wire was then readvanced and positioned in the distal superficial femoral artery. The short 7 Citizen [place] sheath and exchanged (more content not included)... Normal [facility] MR/BMS.BVMichael 08-01-2025 MR/BMS.BVS [facility] [address] [place], [place] [address] OFFICE VISIT Date of Service: 08/01/25 MR#: [id number] Acct: [id number] Name: ELIAS SHAH Rep #: [id number] : 1940 Provider: Dr. Channing Mckeon MD Age/Sex: 85/M Location: [facility] Status: Signed Intake Vital Signs 07/27/25 14:22 08/01/25 15:02 Height 5 ft 9 in Weight: 204 lb BP 124/55 H Blood Pressure Location Rt brachial Position Sitting Respiration 14 Pulse 69 Pulse Source Monitor Temp 99.3 F H Temp Source Temporal Pulse Oximetry (%) 96 Oxygen Delivery Method room air Intake Visit Reasons: Pre op Is patient in pain?: No Allergies atorvastatin Adverse Reaction (Intermediate, Verified 07/27/25 14:23) Myalgias Medications ???Medication ???Instructions ???Recorded ???Confirmed ???Type tamsulosin 0.4 mg capsule 0.4 mg PO QHS urine flow 08/20/19 08/01/25 History famotidine 40 mg tablet (Pepcid) 40 mg PO DAILY 08/10/20 08/01/25 H istory citalopram 10 mg tablet 10 mg PO DAILY 02/18/21 08/01/25 H istory donepezil 10 mg tablet 10 mg PO DAILY 02/18/21 08/01/25 H istory quetiapine 25 mg tablet 25 mg PO BID 02/18/21 08/01/25 His tory cyanocobalamin (vitamin B-12) 1,000 mcg PO DAILY 07/15/21 History 1,000 mcg capsule ascorbate calcium (vitamin C) 500 500 mg PO DAILY 01/13/22 08/01/25 History mg tablet carvedilol 3.125 mg tablet 3.125 mg PO BID #180 tabs 03/28/24 08/01/25 Rx losartan 50 mg tablet 50 mg PO DAILY #90 tabs 05/09/24 0 08/01/25 Rx hydralazine 50 mg tablet 50 mg PO TID #270 TABLETS 04/04/25 08/01/25 Rx clopidogrel 75 mg tablet 75 mg PO DAILY #60 tabs 06/05/25 0 08/01/25 Rx amlodipine 5 mg tablet 5 mg PO QHS #90 tabs 06/22/2508/17 Rx vit C 250 mg-vit E 90 mg-zinc 40 1 tab PO BID 06/22/25 08/01/25 His tory mg-copper 1 fv-nhagjn-yizowv capsule (PreserVision AREDS-2) rosuvastatin 20 mg tablet (Crestor) 10 mg (1/2 x 20 mg) PO DAILY #3 0 07/14/25 08/01/25 Rx tabs azithromycin 250 mg tablet 250 mg PO DAILY 07/27/25 08/01/25 History cefdinir 300 mg capsule 300 mg PO Q12.TCU 07/27/25 5 History codeine 10 mg-guaifenesin 100 mg/5 10 ml PO Q6H PRN cough 07/27/25 08/01/25 History mL oral liquid prednisone 10 mg tablet 10 mg PO .COMPLEX 07/27/25 5 History albuterol sulfate 90 mcg/actuation 2 puff inhalation PRN shortness of 08/01/25 08/01/25 History aerosol inhaler breath or wheezing Have you fallen in the past year?: Yes PFSH Medical History Macular degeneration Iron deficiency anemia [...] Cancer Breast cancer Pancreas cancer Social History household members: family housing: house current occupational status: retired Smoking Status: Former smoker alcohol intake: never substance use type: does not use caffeine: Yes Type: carbonated beverages and coffee eating out: 1-3 times/week adán/judaism: Gnosticism seatbelt use: always do you feel safe at home: Yes HPI HPI HPI: ELIAS SHAH, is a 85 M who presents to the office today for evaluation of 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 He fairly immediately developed pain/tightness behind right knee prompting ultrasound that identified a 7 cm pseudoaneurysm. He was taken to the ED where a CTA confirmed the pseudoaneurysm with surrounding hematoma, no active extravasation, preserved flow into distal popliteal. His pain at the popliteal fossa has been stable, no foot pain/numbness/altered temperature. 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 (more content not included)... Normal [facility] Venous duplex ultrasound rep ortOrdered By: Channing Mckeon on 07-31-2025 US Vein [facility] [address] [place] [address] Venous Duplex US - Lalo Extrem 07/27/25 1314 MR#: [id number] Acct: [id number] Name: ELIAS SHAH Rep #:[id number] : 1940 85 From: Channing Soliman Attending Dr: Dr. Husam Khan MD Status: REG CLI Ordering Dr: Husam Khan MD Date: 03/17 Location: [facility] Sex: M C Admitted: Reason [...] vein thrombosis. The bilateral great saphenous veins appearpatent and compressible segmentally. Incidental finding, right popliteal artery pseudoaneurysm. Ordering Physician: Husam Khan Chi Referring Physician: Husam Khan Chi Performed By: Adán Harris and Student, RVT 07/31/25 1230 Date _ Channing Mckeon MD CC: Dr. 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, [address] Calcium [Mass/Vol] 9.1 mg/dL Normal 7.6-11.0 [facility] Comment on above: Performed By: #### L [id number], L503.0106, L503.6030 #### [facility] [address] [place], [address] Chloride [Moles/Vol] 103 mmol/L Normal 98-108 [facility] Comment on above: Performed By: #### L 500.4050, L503.0106, L503.6030 #### [facility] [address] [place], [address] CO2 [Moles/Vol] 25.9 mmol/L Normal 21.0-32.0 [facility] Comment on above: Performed By: #### L 500.4050, L503.0106, L503.6030 #### [facility] [address] [place], [address] Creatinine [Mass/Vol] 1.15 mg/dL Normal 0.70-1.20 [facility] Comment on above: Performed By: #### L 500.4050, L503.0106, L503.6030 #### [facility] [address] [place], [address] ECRCL 45.25 ml/min Low 50-250 [facility] Comment on above: Performed By: #### L 500.4050, L503.0106, L503.6030 #### [facility] [address] [place], [address] GAP 12 Normal 5-15 [facility] Comment on above: Performed By: #### L 500.4050, L503.0106, L503.6030 #### [facility] [address] [place], [address] GFR/1.73 sq M.predicted among non-blacks MDRD (S/P/Bld) [Vol rate/Area] 62 mL/min/{1.73_m2} Normal >60 [facility] Comment on above: Result Comment: mL/m in/1.73m2 CKD-EPI Creatinine Equation (2020) Performed By: #### L 500.4050, L503.0106, L503.6030 #### [facility] [address] [place], [address] Glucose [Mass/Vol] 156 mg/dL High 70-99 [facility] Comment on above: Performed By: #### L 500.4050, L503.0106, L503.6030 #### [facility] [address] [place], [address] Potassium [Moles/Vol] 4.1 mmol/L Normal 3.3-5.1 [facility] Comment on above: Performed By: #### L 500.4050, L503.0106, L503.6030 #### [facility] [address] [place], [address] Sodium [Moles/Vol] 140 mmol/L Normal 133-145 [facility] Comment on above: Performed By: #### L 500.4050, L503.0106, [id number] #### [facility] [address] [place], [address] Urea nitrogen [Mass/Vol] 19 mg/dL Normal 4-19 [facility] Comment on above: Performed By: #### L 500.4050, L503.0106, [id number] #### [facility] [address] [place], [address] CBC-Complete Blood Cnt No Di ffon 07-27-2025 Erythrocyte distribution width (RBC) [Ratio] 15.4 % High 11.6-14.6 [facility] Comment on above: Performed By: #### L 500.4050, L503.0106, [id number] #### [facility] [address] [place], [address] Hematocrit (Bld) [Volume fraction] 30.7 % Low 40-54 [facility] Comment on above: Performed By: #### L [id number], [id number], [id number] #### [facility] [address] [place], [address] Hemoglobin (Bld) [Mass/Vol] 9.3 g/dL Low 13.0-16.5 [facility] Comment on above: Performed By: #### L [id number], L503.0106, [id number] #### [facility] [address] [place], [address] MCH (RBC) [Entitic mass] 24.8 pg Low 27.0-32.0 [facility] Comment on above: Performed By: #### L 500.4050, L503.0106, L503.6030 #### [facility] [address] [place], [address] MCHC (RBC) [Mass/Vol] 30.3 g/dL Low 32-36 [facility] Comment on above: Performed By: #### L 500.4050, L503.0106, L503.6030 #### [facility] [address] [place], [address] MCV (RBC) [Entitic vol] 81.9 fL Normal 80-94 [facility] Comment on above: Performed By: #### L 500.4050, L503.0106, L503.6030 #### [facility] [address] [place], [address] Platelet mean volume (Bld) [Entitic vol] 8.6 fL Normal 6.2-12.0 [facility] Comment on above: Performed By: #### L 500.4050, L503.0106, L503.6030 #### [facility] [address] [place], [address] Platelets (Bld) [#/Vol] 282 10*3/uL Normal 150-450 [facility] Comment on above: Performed By: #### L 500.4050, L503.0106, L503.6030 #### [facility] [address] [place], [address] RBC (Bld) [#/Vol] 3.75 10*6/uL Low 4.6-6.2 [facility] Comment on above: Performed By: #### L 500.4050, L503.0106, L503.6030 #### [facility] [address] [place], [address] RDW SD 45.6 fl High 35.1-43.9 [facility] Comment on above: Performed By: #### L 500.4050, L503.0106, L503.6030 #### [facility] [address] [place], [address] WBC (Bld) [#/Vol] 9.5 10*3/uL Normal 4.4-11.0 [facility] Comment on above: Performed By: #### L 500.4050, L503.0106, L503.6030 #### [facility] [address] [place], [address] CTA Abd w/Runoff W/WO Contra markie 07-27-2025 CTA Abd w/Runoff W/WO Contrast [facility] Imaging Services [address] [place], [place] [address] CTA Abd w/Runoff W/WO Contrast MR#: [id number] Acct: [id number] Name: ELIAS SHAH Rep #: [id number] : 1940 M 85 From: Marv Curtis MD PCP: Dr. Husam Khan MD Status: REG ER Study: CTA Abd w/Runoff W/WO Contrast Date of Exam: 0 07/27/25 Exam# [id number] Ordering Dr: Ilana Medrano DO PROCEDURE: CTA [...] mentioned in the clinical history. Reading Location: [id number] CC: Dr. Ilana Medrano DO; Dr. Husam Khan MD 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: Signed Normal [facility] Carbon dioxide, total [Moles /volume] in Central venous bloodOrdered By: Ilana Medrano on 07-27-2025 CO2 [Moles/Vol] 25.9 mmol/L 21.0-32.0 [facility] Chloride assayOrdered By: Anatoly Medrano on 07-27-2025 Chloride [Moles/Vol] 103 mmol/L 98-108 [facility] Emergency Department Summary on 07-27-2025 Emergency Department Summary [facility] Medical Records Department [address] [place] [address] Emergency Department Summary 07/27/25 MR#: [id number] Acct: [id number] Name: ELIAS SHAH Rep #: [id number] : 1940 85 From: Ilana Medrano DO [...] all of the antibiotics and doctors appointments. [facility] Medical History Macular degeneration Iron [...] BID 06/22/25 Unknown Hist ory mg-copper 1 uk-baqolg-wpkfgf capsule (PreserVision AREDS-2) rosuvastatin 20 mg tablet [...] 1-3 times/wee (more content not included)... Normal [facility] Erythrocyte distribution wid th ratioOrdered By: Ilana Medrano on 07-27-2025 Erythrocyte distribution width (RBC) [Ratio] 15.4 % High 11.6-14.6 [facility] Erythrocyte distribution wid th standard deviationOrdered By: Ilana Medrano on 07-27-2025 Erythrocyte distribution width (RBC) [Ratio] 45.6 fl High 35.1-43.9 [facility] Glomerular filtration rate ( GFR) estimation/1.73 sq m using serum, plasma, or whole bOrdered By: Ilana Medrano on 07-27-2025 GFR/1.73 sq M.predicted among non-blacks MDRD (S/P/Bld) [Vol rate/Area] 62 mL/min/{1.73_m2} >60 [facility] Comment on above: mL/min/1.73m2 CKD-EP I Creatinine Equation (2020) Hematocrit Auto (Bld) [Volum e fraction]Ordered By: Ilana Medrano on 07-27-2025 Hematocrit (Bld) [Volume fraction] 30.7 % Low 40-54 [facility] Hemoglobin measurementOrdere d By: Ilana Medrano on 07-27-2025 Hemoglobin (Bld) [Mass/Vol] 9.3 g/dL Low 13.0-16.5 [facility] MCV (mean corpuscular volume ) determinationOrdered By: Ilana eMdrano on 07-27-2025 MCV (RBC) [Entitic vol] 81.9 fL 80-94 [facility] Mean corpuscular hemoglobin (MCH) determinationOrdered By: Ilana Medrano on 07-27-2025 MCH (RBC) [Entitic mass] 24.8 pg Low 27.0-32.0 [facility] Mean corpuscular hemoglobin concentration (MCHC) determinationOrdered By: Ilana Medrano on 07-27-2025 MCHC (RBC) [Mass/Vol] 30.3 g/dL Low 32-36 [facility] Mean platelet volume determi nationOrdered By: Ilana Medrano on 07-27-2025 Platelet mean volume (Bld) [Entitic vol] 8.6 fL 6.2-12.0 [facility] Platelet countOrdered By: Anatoly Medrano on 07-27-2025 Platelets (Bld) [#/Vol] 282 10*3/uL 150-450 [facility] Potassium measurement (mass/ volume)Ordered By: Ilana Medrano on 07-27-2025 Potassium (Unsp spec) [Mass/Vol] 4.1 mmol/L 3.3-5.1 [facility] RBC Auto (Bld) [#/Vol]Ordere d By: Ilana Medrano on 07-27-2025 RBC (Bld) [#/Vol] 3.75 10*6/uL Low 4.6-6.2 [facility] Serum creatinine measurement (mass/volume)Ordered By: Ilana Medrnao on 07-27-2025 Creatinine [Mass/Vol] 1.15 mg/dL 0.70-1.20 [facility] Serum glucose measurement (m ass/volume)Ordered By: Ilana Medrano on 07-27-2025 Glucose [Mass/Vol] 156 mg/dL High 70-99 [facility] Serum or plasma calcium donna urement (mass/volume)Ordered By: Ilana Medrano on 07-27-2025 Calcium [Mass/Vol] 9.1 mg/dL 7.6-11.0 [facility] Serum or plasma urea nitroge n measurement (mass/volume)Ordered By: Ilana Medrano on 07-27-2025 Urea nitrogen [Mass/Vol] 19 mg/dL 4-19 [facility] Sodium levelOrdered By: Demi Medrano on 07-27-2025 Sodium [Moles/Vol] 140 mmol/L 133-145 [facility] Venous Duplex US - Lalo Extre [facility] [place] 07-27-2025 Venous Duplex US - Lalo Extrem [facility] [address] [place] [address] Venous Duplex US - Lalo Extrem 07/27/25 1314 MR#: [id number] Acct: [id number] Name: ELIAS SHAH Rep #: [id number] : 1940 85 From: Channing Mckeon MD [...] Referring Physician: Husam Khan Chi Performed By: Adán Harris and Student, RVT 07/31/25 1230 Date Channing Mckeon MD CC: Dr. Husam Khan MD Date Dictated: 07/27/25 1314 Date Transcribed: 07/31/25 1230 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: Signed Normal [facility] White blood cell (WBC) count Ordered By: Ilana Medrano on 07-27-2025 WBC (Bld) [#/Vol] 9.5 10*3/uL 4.4-11.0 [facility] Influenza virus A and B and SARS-CoV-2 (COVID-19) and Respiratory syncytial virus RNAOrdered By: Husam Khan on 07-26-2025 SARS-CoV-2 (COVID-19) RNA TRICIA+probe Ql (Unsp spec) [facility] M100.678on 07-26-2025 M100.678 Pending SARS-CoV-2 (COVID 19) Negative INFLUENZA A Negative INFLUENZA B Negative RSV PCR Negative Normal [facility] Comment on above: Performed By: #### L 100.0100, L500.2500 #### [facility] [address] [place], [place], [address] Cardiology Visit Reporton Cardiology Visit Report [facility] [address] [place], [place] [address] OFFICE VISIT Date of Service: 06/22/25 MR#: [id number] Acct: [id number] Name: ELIAS SHAH Rep #: [id number] : 1940 Provider: MAHENDRA Kirkland Age/Sex: 85/M Location: [facility] [place] Status: Signed HPI HPI History of Present [...] Intake Visit Reasons: Overdue 1 Y FU [employer] Supervisor Required: No Accompanied by: Sister Is patient [...] BID 06/22/25 06/22/25 His tory mg-copper 1 no-jlvgyo-gaiprz capsule (PreserVision AREDS-2) Ejection fraction %: 65 Have you fallen in the past year?: Yes PFSH Medical History Macular degeneration Iron deficiency anemia [...] beverages and coffee eating out: 1-3 times/week adán/judaism: Gnosticism seatbelt use: always do you feel safe [...] dizziness, lighthe (more content not included)... Normal [facility] Oncology Visit Reporton 04-25 Oncology Visit Report [facility] [place] [facility] [place] [address] OFFICE VISIT Date of Service: 05/22/25 1037 MR#: [id number] Acct: [id number] Name: ELIAS SHAH Rep #: [id number] : 1940 From: Geoffrey Garza MD Age/Sex: 85/M Location: [facility] [place] Status: Signed HPI Subjective Date of Service [...] and again MGUS could not be excluded. [facility] Medical History (Updated 05/22/25 @ 10:41 by [...] beverages and coffee eating out: 1-3 times/week adán/judaism: Gnosticism seatbelt use: always do you feel safe [...] as docu (more content not included)... Normal [facility] DAMARIS + Protein Elect, Serumon 05-09-2025 Albumin [Mass/Vol] 3.1 g/dL Normal 2.9-4.4 [facility] Comment on above: Order Comment: NUNK Performed By: #### L 100.0100, L500.2500 #### [facility] [address] [place], [address] Albumin/Globulin [Mass ratio] 0.9 {ratio} Normal 0.7-1.7 [facility] Comment on above: Order Comment: NUNK Performed By: #### L 100.0100, L500.2500 #### [facility] [address] [place], [address] GUJAZ-0-JDDH 0.3 g/dL Normal 0.0-0.4 [facility] Comment on above: Order Comment: NUNK Performed By: #### L 100.0100, L500.2500 #### [facility] [address] [place], [address] SXXAO-4-DZJE 1.0 g/dL Normal 0.4-1.0 [facility] Comment on above: Order Comment: NUNK Performed By: #### L 100.0100, L500.2500 #### [facility] [address] [place], [address] BETA GLOBULIN 1.0 g/dL Normal 0.7-1.3 [facility] Comment on above: Order Comment: NUNK Performed By: #### L 100.0100, L500.2500 #### [facility] [address] [place], [address] GAMMA GLOBULIN 1.5 g/dL Normal 0.4-1.8 [facility] Comment on above: Order Comment: NUNK Performed By: #### L 100.0100, L500.2500 #### [facility] [address] [place], [address] Globulin (S) [Mass/Vol] 3.8 g/dL Normal 2.2-3.9 [facility] Comment on above: Order Comment: NUNK Performed By: #### L 100.0100, L500.2500 #### [facility] [address] [place], [address] DAMARIS RESULT,S Comment Abnormal . [facility] Comment on above: Order Comment: NUNK Result Comment: Immu nofixation shows IgM monoclonal protein with kappa light chain specificity. Immunofixation shows IgM monoclonal protein with lambda light chain specificity. Immunofixation shows IgG monoclonal protein with lambda light chain specificity. Performed By: #### L 100.0100, L500.2500 #### [facility] [address] [place], [address] IMMUNOGLOB A QN 472 mg/dL High 61-437 [facility] Comment on above: Order Comment: NUNK Performed By: #### L 100.0100, L500.2500 #### [facility] [address] [place], [address] IMMUNOGLOB G QN 1475 mg/dL Normal 603-1613 [facility] Comment on above: Order Comment: NUNK Performed By: #### L 100.0100, L500.2500 #### [facility] [address] [place], [address] IMMUNOGLOB M QN 179 mg/dL High 15-143 [facility] Comment on above: Order Comment: NUNK Performed By: #### L 100.0100, L500.2500 #### [facility] [address] [place], [address] M-William Comment: Normal Not Observed [facility] Comment on above: Order Comment: NUNK Result Comment: [place] clonal IgM lambda = 0.2 g/dl Monoclonal IgG lambda = 0.2 g/dl Monoclonal IgM kappa = 0.1 g/dl Performed By: #### L 100.0100, L500.2500 #### [facility] [address] [place], [address] NOTE: Comment Normal . [facility] Comment on above: Order Comment: NUNK Result Comment: Prot ein electrophoresis scan will follow via computer, mail, or magnetic prospecting supervisor delivery. Performed at: [address] [id number] Supervisor [employer]: Alcides Alicea PhD, Phone: [phone] Performed By: #### L 100.0100, L500.2500 #### [facility] [address] [place], [place], [address] Protein [Mass/Vol] 6.9 g/dL Normal 6.0-8.5 [facility] Comment on above: Order Comment: NUNK Performed By: #### L 100.0100, L500.2500 #### [facility] [address] [place], [place], [id number] Absolute lymphocyte countOrd ered By: Geoffrey Garza on 05-04-2025 Lymphocytes Auto (Unsp spec) [#/Vol] 2.54 10*3/uL 0.83-4.51 [facility] Absolute neutrophil countOrd ered By: Geoffrey Garza on 05-04-2025 Neutrophils (Bld) [#/Vol] 1.3 10*3/uL Low 2.0-7.7 [facility] Albumin Elph [Mass/Vol]Order ed By: Geoffrey Garza on 05-04-2025 Albumin [Mass/Vol] 3.1 g/dL 2.9-4.4 [facility] Anion gap in Serum or Plasma Ordered By: Geoffrey Garza on 05-04-2025 Anion gap [Moles/Vol] 9 mmol/L 5-15 [facility] Automated lymphocyte count a s percentage of total leukocytesOrdered By: Geoffrey Gazra on 05-04-2025 Lymphocytes/100 WBC Auto (Unsp spec) 50.5 % High 19-41 [facility] BUN/creatinine ratioOrdered By: Geoffrey Gazra on 05-04-2025 Urea nitrogen/Creatinine [Mass ratio] 11.4 mg/mg 10-20 [facility] Basophil percentageOrdered B y: Geoffrey Garza on 05-04-2025 Basophils/100 WBC (Bld) 0.4 % 0-1 [facility] Bilirubin, totalOrdered By: Geoffrey Garza on 05-04-2025 Bilirubin [Mass/Vol] 0.33 mg/dL 0.00-1.30 [facility] CBC W/Diff, Automatedon 04-23-2024 Absolute Lymph 2.54 X10 3/uL Normal 0.83-4.51 [facility] Comment on above: Performed By: #### L 100.0100, L500.2500 #### [facility] [address] [place], [address] Absolute Neut 1.3 X10 3/uL Low 2.0-7.7 [facility] Comment on above: Performed By: #### L 100.0100, L500.2500 #### [facility] [address] [place], [address] Basophils/100 WBC (Bld) 0.4 % Normal 0-1 [facility] Comment on above: Performed By: #### L 100.0100, L500.2500 #### [facility] [address] [place], [address] Eosinophils/100 WBC (Bld) 1.4 % Normal 0-5 [facility] Comment on above: Performed By: #### L 100.0100, L500.2500 #### [facility] [address] [place], [address] Erythrocyte distribution width (RBC) [Ratio] 15.1 % High 11.6-14.6 [facility] Comment on above: Performed By: #### L 100.0100, L500.2500 #### [facility] [address] [place], [address] Hematocrit (Bld) [Volume fraction] 36.5 % Low 40-54 [facility] Comment on above: Performed By: #### L 100.0100, L500.2500 #### [facility] [address] [place], [address] Hemoglobin (Bld) [Mass/Vol] 11.4 g/dL Low 13.0-16.5 [facility] Comment on above: Performed By: #### L 100.0100, L500.2500 #### [facility] [address] [place], [address] IG% 0.800 Normal 0.0-0.9 [facility] Comment on above: Result Comment: IG% - Immature Granulocytes (promyelocytes, myelocytes and metamyelocytes) > 1% indicates that a LEFT SHIFT is Present. Performed By: #### L 100.0100, L500.2500 #### [facility] [address] [place], [address] Lymphocytes/100 WBC (Bld) 50.5 % High 19-41 [facility] Comment on above: Performed By: #### L 100.0100, L500.2500 #### [facility] [address] [place], [address] MCH (RBC) [Entitic mass] 27.7 pg Normal 27.0-32.0 [facility] Comment on above: Performed By: #### L 100.0100, L500.2500 #### [facility] [address] [place], [address] MCHC (RBC) [Mass/Vol] 31.2 g/dL Low 32-36 [facility] Comment on above: Performed By: #### L 100.0100, L500.2500 #### [facility] [address] [place], [address] MCV (RBC) [Entitic vol] 88.8 fL Normal 80-94 [facility] Comment on above: Performed By: #### L 100.0100, L500.2500 #### [facility] [address] [place], [address] Monocytes/100 WBC (Bld) 22.1 % High 0-10 [facility] Comment on above: Performed By: #### L 100.0100, L500.2500 #### [facility] [address] [place], [address] Neutrophils/100 WBC (Bld) 24.8 % Low 47-70 [facility] Comment on above: Performed By: #### L 100.0100, L500.2500 #### [facility] [address] [place], [address] Nucleated RBC (Bld) [#/Vol] 0 10*3/uL Normal 0-5 [facility] Comment on above: Performed By: #### L 100.0100, L500.2500 #### [facility] [address] [place], [address] Platelet mean volume (Bld) [Entitic vol] 8.9 fL Normal 6.2-12.0 [facility] Comment on above: Performed By: #### L 100.0100, L500.2500 #### [facility] [address] [place], [address] Platelets (Bld) [#/Vol] 210 10*3/uL Normal 150-450 [facility] Comment on above: Performed By: #### L 100.0100, L500.2500 #### [facility] [address] [place], [address] RBC (Bld) [#/Vol] 4.11 10*6/uL Low 4.6-6.2 [facility] Comment on above: Performed By: #### L 100.0100, L500.2500 #### [facility] [address] [place], [address] RDW SD 49.2 fl High 35.1-43.9 [facility] Comment on above: Performed By: #### L 100.0100, L500.2500 #### [facility] [address] [place], [address] WBC (Bld) [#/Vol] 5.0 10*3/uL Normal 4.4-11.0 [facility] Comment on above: Performed By: #### L 100.0100, L500.2500 #### [facility] [address] [place], [address] Carbon dioxide, total [Moles /volume] in Central venous bloodOrdered By: Geoffrey Garza on 05-04-2025 CO2 [Moles/Vol] 26.7 mmol/L 21.0-32.0 [facility] Chloride assayOrdered By: Cheri Garza on 05-04-2025 Chloride [Moles/Vol] 102 mmol/L 98-108 [facility] Comprehensive Metabolic Prof ilon 05-04-2025 Albumin [Mass/Vol] 3.6 g/dL Normal 3.4-4.8 [facility] Comment on above: Order Comment: UNK Performed By: #### L 500.4050, L503.0106, L503.6030 #### [facility] [address] [place], [address] Albumin/Globulin [Mass ratio] 1.0 {ratio} Normal 0.9-2.4 [facility] Comment on above: Order Comment: UNK Performed By: #### L 500.4050, L503.0106, L503.6030 #### [facility] [address] [place], [address] ALK PHOS 96 U/L Normal 40-129 [facility] Comment on above: Order Comment: UNK Performed By: #### L 500.4050, L503.0106, L503.6030 #### [facility] [address] [place], [address] ALT [Catalytic activity/Vol] 6 U/L Normal <=46 [facility] Comment on above: Order Comment: UNK Performed By: #### L 500.4050, L503.0106, L503.6030 #### [facility] [address] [place], [address] AST [Catalytic activity/Vol] 20 U/L Normal <=37 [facility] Comment on above: Order Comment: UNK Performed By: #### L 500.4050, L503.0106, L503.6030 #### [facility] [address] [place], [address] Bilirubin [Mass/Vol] 0.33 mg/dL Normal 0.00-1.30 [facility] Comment on above: Order Comment: UNK Performed By: #### L 500.4050, L503.0106, L503.6030 #### [facility] [address] [place], [address] BUN/CRE 11.4 RATIO Normal 10-20 [facility] Comment on above: Order Comment: UNK Performed By: #### L 500.4050, L503.0106, L503.6030 #### [facility] [address] [place], [address] Calcium [Mass/Vol] 8.8 mg/dL Normal 7.6-11.0 [facility] Comment on above: Order Comment: UNK Performed By: #### L 500.4050, L503.0106, L503.6030 #### [facility] [address] [place], [address] Chloride [Moles/Vol] 102 mmol/L Normal 98-108 [facility] Comment on above: Order Comment: UNK Performed By: #### L 500.4050, L503.0106, L503.6030 #### [facility] [address] [place], [address] CO2 [Moles/Vol] 26.7 mmol/L Normal 21.0-32.0 [facility] Comment on above: Order Comment: UNK Performed By: #### L 500.4050, L503.0106, L503.6030 #### [facility] [address] [place], [address] Creatinine [Mass/Vol] 1.14 mg/dL Normal 0.70-1.20 [facility] Comment on above: Order Comment: UNK Performed By: #### L 500.4050, L503.0106, L503.6030 #### [facility] [address] [place], [address] ECRCL 49.94 ml/min Low 50-250 [facility] Comment on above: Order Comment: UNK Performed By: #### L 500.4050, L503.0106, L503.6030 #### [facility] [address] [place], [address] GAP 9 Normal 5-15 [facility] Comment on above: Order Comment: UNK Performed By: #### L 500.4050, L503.0106, L503.6030 #### [facility] [address] [place], [address] GFR/1.73 sq M.predicted among non-blacks MDRD (S/P/Bld) [Vol rate/Area] 62 mL/min/{1.73_m2} Normal >60 [facility] Comment on above: Order Comment: UNK Result Comment: mL/m in/1.73m2 CKD-EPI Creatinine Equation (2020) Performed By: #### L 500.4050, L503.0106, L503.6030 #### [facility] [address] [place], [address] Globulin (S) [Mass/Vol] 3.6 g/dL Normal 2.2-4.2 [facility] Comment on above: Order Comment: UNK Performed By: #### L 500.4050, L503.0106, L503.6030 #### [facility] [address] [place], [address] Glucose [Mass/Vol] 90 mg/dL Normal 70-99 [facility] Comment on above: Order Comment: UNK Performed By: #### L 500.4050, L503.0106, L503.6030 #### [facility] [address] [place], [address] Potassium [Moles/Vol] 4.6 mmol/L Normal 3.3-5.1 [facility] Comment on above: Order Comment: UNK Performed By: #### L 500.4050, L503.0106, L503.6030 #### [facility] [address] [place], [address] Sodium [Moles/Vol] 138 mmol/L Normal 133-145 [facility] Comment on above: Order Comment: UNK Performed By: #### L 500.4050, L503.0106, L503.6030 #### [facility] [address] [place], [address] T PROT 7.2 g/dL Normal 5.9-8.4 [facility] Comment on above: Order Comment: UNK Performed By: #### L 500.4050, L503.0106, L503.6030 #### [facility] [address] [place], [address] Urea nitrogen [Mass/Vol] 13 mg/dL Normal 4-19 [facility] Comment on above: Order Comment: UNK Performed By: #### L 500.4050, L503.0106, L503.6030 #### [facility] [address] [place], [address] Eosinophil percentageOrdered By: Geoffrey Garza on 05-04-2025 Eosinophils/100 WBC (Bld) 1.4 % 0-5 [facility] Erythrocyte distribution wid th ratioOrdered By: Geoffrey Garza on 05-04-2025 Erythrocyte distribution width (RBC) [Ratio] 15.1 % High 11.6-14.6 [facility] Erythrocyte distribution wid th standard deviationOrdered By: Geoffrey Garza on 05-04-2025 Erythrocyte distribution width (RBC) [Ratio] 49.2 fl High 35.1-43.9 [facility] Ferritinon 05-04-2025 Ferritin [Mass/Vol] 78 ng/mL Normal 37-417 [facility] Comment on above: Performed By: #### L 100.0100, L500.2500 #### [facility] [address] [place], [id number] Glomerular filtration rate ( GFR) estimation/1.73 sq m using serum, plasma, or whole bOrdered By: Geoffrey Garza on 05-04-2025 GFR/1.73 sq M.predicted among non-blacks MDRD (S/P/Bld) [Vol rate/Area] 62 mL/min/{1.73_m2} >60 [facility] Comment on above: mL/min/1.73m2 CKD-EP I Creatinine Equation (2020) Hematocrit Auto (Bld) [Volum e fraction]Ordered By: Geoffrey Garza on 05-04-2025 Hematocrit (Bld) [Volume fraction] 36.5 % Low 40-54 [facility] Hemoglobin measurementOrdere d By: Geoffrey Garza on 05-04-2025 Hemoglobin (Bld) [Mass/Vol] 11.4 g/dL Low 13.0-16.5 [facility] Immature granulocytes/100 WB C Auto (Bld)Ordered By: Geoffrey Garza on 05-04-2025 Immature granulocytes/100 WBC (Bld) 0.800 % 0.0-0.9 [facility] Comment on above: IG% - Immature Granu locytes (promyelocytes, myelocytes and metamyelocytes) > 1% indicates that a LEFT SHIFT is Present. Interpretation of serum or p lasma protein pattern by immunofixation (narrative resultOrdered By: Geoffrey Garza on 05-04-2025 Protein Fractions Immunofixation Carlin [Interp] Comment: g/dL Not Observed [facility] Comment on above: Monoclonal IgM lambd a = 0.2 g/dlMonoclonal IgG lambda = 0.2 g/dlMonoclonal IgM kappa = 0.1 g/dl Iron measurement (mass/mass) Ordered By: Geoffrey Garza on 05-04-2025 Iron (Unsp spec) [Mass/Mass] 34 ug/dL Low 65-175 [facility] Iron+Iron Binding Capacityon 05-04-2025 TIBC 222 ug/dL Low 250-450 [facility] Comment on above: Order Comment: UNK Performed By: #### L 500.4050, L503.0106, L503.6030 #### [facility] [address] [place], [address] Laboratory - Chemistry and C hemistry - challengeOrdered By: Geoffrey Garza on 05-04-2025 AST [Catalytic activity/Vol] 20 U/L <38 [facility] MCV (mean corpuscular volume ) determinationOrdered By: Geoffrey Garza on 05-04-2025 MCV (RBC) [Entitic vol] 88.8 fL 80-94 [facility] Mean corpuscular hemoglobin (MCH) determinationOrdered By: Geoffrey Garza on 05-04-2025 MCH (RBC) [Entitic mass] 27.7 pg 27.0-32.0 [facility] Mean corpuscular hemoglobin concentration (MCHC) determinationOrdered By: Geoffrey Garza on 05-04-2025 MCHC (RBC) [Mass/Vol] 31.2 g/dL Low 32-36 [facility] Mean platelet volume determi nationOrdered By: Geoffrey Garza on 05-04-2025 Platelet mean volume (Bld) [Entitic vol] 8.9 fL 6.2-12.0 [facility] Monocyte percentageOrdered B y: Geoffrey Garza on 05-04-2025 Monocytes/100 WBC (Bld) 22.1 % High 0-10 [facility] Neutrophil percentageOrdered By: [facility] on 05-04-2025 Neutrophils/100 WBC (Bld) 24.8 % Low 47-70 [facility] No Panel InformationOrdered By: Geoffrey Garza on 05-04-2025 Addendum Document Comment . [facility] Comment on above: Protein electrophore sis scan will follow via computer,mail, or magnetic prospecting supervisor delivery.Performed at: - [facility] [id number] Director: Alcides Alicea PhD, Phone: [phone] Unsaturated Iron Binding Capacity 188 ug/dL Low 228-428 [facility] 20 U/L <38 [facility] 188 ug/dL Low 228-428 [facility] Nucleated red blood cell per centageOrdered By: Geoffrey Garza on 05-04-2025 Nucleated RBC/100 WBC (Bld) [Ratio] 0 % 0-5 [facility] Platelet countOrdered By: Cheri Garza on 05-04-2025 Platelets (Bld) [#/Vol] 210 10*3/uL 150-450 [facility] Potassium measurement (mass/ volume)Ordered By: Geoffrey Garza on 05-04-2025 Potassium (Unsp spec) [Mass/Vol] 4.6 mmol/L 3.3-5.1 [facility] RBC Auto (Bld) [#/Vol]Ordere d By: Geoffrey Garza on 05-04-2025 RBC (Bld) [#/Vol] 4.11 10*6/uL Low 4.6-6.2 [facility] Retic Panelon 05-04-2025 IM RET FRACTION 25.40 High 3.00-15.90 [facility] Comment on above: Performed By: #### L 100.0100, L500.2500 #### [facility] [address] [place], [place], [id number] RET-HE 28.5 pg Low 30-35 [facility] Comment on above: Performed By: #### L 100.0100, L500.2500 #### [facility] [address] [place], [address] Retic Count 2.45 High 0.5-1.5 [facility] Comment on above: Performed By: #### L 100.0100, L500.2500 #### [facility] [address] [place], [place], [id number] Reticulocyte hemoglobin equi valent (RET-He) measurementOrdered By: Geoffrey Garza on 05-04-2025 Hemoglobin (Reticulocytes) [Entitic mass] 28.5 pg Low 30-35 [facility] Reticulocytes Auto (Bld) [#/ Vol]Ordered By: Geoffrey Garza on 05-04-2025 Reticulocytes/100 RBC (Bld) 2.45 % High 0.5-1.5 [facility] Serum creatinine measurement (mass/volume)Ordered By: Geoffrey Garza on 05-04-2025 Creatinine [Mass/Vol] 1.14 mg/dL 0.70-1.20 [facility] Serum globulin measurement ( mass/volume)Ordered By: Geoffrey Garza on 05-04-2025 Globulin (S) [Mass/Vol] 3.8 g/dL 2.2-3.9 [facility] Serum glucose measurement (m ass/volume)Ordered By: Geoffrey Garza on 05-04-2025 Glucose [Mass/Vol] 90 mg/dL 70-99 [facility] Serum or plasma IgA measurem ent (mass/volume)Ordered By: Geoffrey Garza on 05-04-2025 IgA [Mass/Vol] 472 mg/dL High 61-437 [facility] Serum or plasma IgG measurem ent (mass/volume)Ordered By: Geoffrey Garza on 05-04-2025 IgG [Mass/Vol] 1475 mg/dL 603-1613 [facility] Serum or plasma alanine mccoy otransferase (ALT) measurementOrdered By: Geoffrey Garza on 05-04-2025 ALT [Catalytic activity/Vol] 6 U/L <47 [facility] Serum or plasma albumin donna urement (mass/volume)Ordered By: Geoffrey Garza on 05-04-2025 Albumin [Mass/Vol] 3.6 g/dL 3.4-4.8 [facility] Serum or plasma albumin/glob ulin mass ratioOrdered By: Geoffrey Garza on 05-04-2025 Albumin/Globulin [Mass ratio] 1.0 {ratio} 0.9-2.4 [facility] Serum or plasma alkaline salvador sphatase measurementOrdered By: Geoffrey Garza on 05-04-2025 ALP [Catalytic activity/Vol] 96 U/L 40-129 [facility] Serum or plasma alpha 1 glob ulin measurement by electrophoresis (mass/volume)Ordered By: Geoffrey Garza on 05-04-2025 Alpha 1 globulin Elph [Mass/Vol] 0.3 g/dL 0.0-0.4 [facility] Alpha 1 globulin Elph [Mass/Vol] 1.0 g/dL 0.4-1.0 [facility] Serum or plasma beta globuli n measurement by electrophoresis (mass/volume)Ordered By: Geoffrey Garza on 05-04-2025 Beta globulin Elph [Mass/Vol] 1.0 g/dL 0.7-1.3 [facility] Serum or plasma calcium donna urement (mass/volume)Ordered By: Geoffrey Garza on 05-04-2025 Calcium [Mass/Vol] 8.8 mg/dL 7.6-11.0 [facility] Serum or plasma ferritin yosef surement (mass/volume)Ordered By: Geoffrey Garza on 05-04-2025 Ferritin [Mass/Vol] 78 ng/mL 37-417 [facility] Serum or plasma gamma globul in measurement by electrophoresis (mass/volume)Ordered By: Geoffrey Garza on 05-04-2025 Gamma globulin Elph [Mass/Vol] 1.5 g/dL 0.4-1.8 [facility] Serum or plasma immunoelectr ophoresis interpretation (nominal result)Ordered By: Geoffrey Garza on 05-04-2025 Interpretation IEP [Interp] Comment High . [facility] Comment on above: Immunofixation shows IgM monoclonal protein with kappalight chain specificity.Immunofixation shows IgM monoclonal protein with lambdalight chain specificity.Immunofixation shows IgG monoclonal protein with lambdalight chain specificity. Serum or plasma iron saturat ion measurement (mass fraction)Ordered By: Geoffrey Garza on 05-04-2025 Iron saturation [Mass fraction] 15.0 % 9-55 [facility] Comment on above: Previous reported re sult: 15.0 %Edited by: RADAMES on 05/04/25:1655 Serum or plasma protein donan urement (mass/volume)Ordered By: Geoffrey Garza on 05-04-2025 Protein [Mass/Vol] 6.9 g/dL 6.0-8.5 [facility] Serum or plasma urea nitroge n measurement (mass/volume)Ordered By: Geoffrey Greg on 05-04-2025 Urea nitrogen [Mass/Vol] 13 mg/dL 4-19 [facility] Sodium levelOrdered By: Leroy vazquez Greg on 05-04-2025 Sodium [Moles/Vol] 138 mmol/L 133-145 [facility] Total proteinOrdered By: Polo sabillon Greg on 05-04-2025 Protein [Mass/Vol] 7.2 g/dL 5.9-8.4 [facility] Vitamin B12on 05-04-2025 Cobalamin (Vitamin B12) [Mass/Vol] 1485 pg/mL High 180-914 [facility] Comment on above: Performed By: #### L 500.4050, L503.0106, L503.6030 #### [facility] [address] [place] [address], [id number] Vitamin B12 ser/plasOrdered By: Geoffrey Greg on 05-04-2025 Cobalamin (Vitamin B12) [Mass/Vol] 1485 pg/mL High 180-914 [facility] White blood cell (WBC) count Ordered By: Geoffrey Greg on 05-04-2025 WBC (Bld) [#/Vol] 5.0 10*3/uL 4.4-11.0 [facility] Absolute lymphocyte countOrd ered By: Husam Khan on 12-29-2024 Lymphocytes Auto (Unsp spec) [#/Vol] 2.27 10*3/uL 0.83-4.51 [facility] Absolute neutrophil countOrd ered By: Husam Khan on 12-29-2024 Neutrophils (Bld) [#/Vol] 1.2 10*3/uL Low 2.0-7.7 [facility] Albumin to globulin ratioOrd ered By: Husam Khan on 12-29-2024 Albumin/Globulin [Mass ratio] 0.7 {ratio} Low 0.9-2.4 [facility] Automated lymphocyte count a s percentage of total leukocytesOrdered By: Husam Khan on 12-29-2024 Lymphocytes/100 WBC Auto (Unsp spec) 53.0 % High 19-41 [facility] Basophil percentageOrdered B y: Husam Khan on 12-29-2024 Basophils/100 WBC (Bld) 0.2 % 0-1 [facility] Bilirubin, totalOrdered By: Husam Farrisok on 12-29-2024 Bilirubin [Mass/Vol] 0.40 mg/dL 0.20-1.00 [facility] Comment on above: For patients on eltr ombopag therapy, use of Dimension [place] TBIL is not recommended. Blood urea nitrogen (BUN)/cr eatinine ratioOrdered By: Husam Khan on 12-29-2024 Urea nitrogen/Creatinine [Mass ratio] 9.6 mg/mg Low 10-20 [facility] CBC W/Diff, Automatedon Absolute Lymph 2.27 X10 3/uL Normal 0.83-4.51 [facility] Comment on above: Performed By: #### L 503.6005 #### [facility] [address] [place], [address] Absolute Neut 1.2 X10 3/uL Low 2.0-7.7 [facility] Comment on above: Performed By: #### L [id number] #### [facility] [address] [place], [address] Basophils/100 WBC (Bld) 0.2 % Normal 0-1 [facility] Comment on above: Performed By: #### L [id number] #### [facility] [address] [place], [address] Eosinophils/100 WBC (Bld) 1.6 % Normal 0-5 [facility] Comment on above: Performed By: #### L [id number] #### [facility] [address] [place], [address] Erythrocyte distribution width (RBC) [Ratio] 15.0 % High 11.6-14.6 [facility] Comment on above: Performed By: #### L [id number] #### [facility] [address] [place], [address] Hematocrit (Bld) [Volume fraction] 38.9 % Low 40-54 [facility] Comment on above: Performed By: #### L [id number] #### [facility] [address] [place], [address] Hemoglobin (Bld) [Mass/Vol] 12.3 g/dL Low 13.0-16.5 [facility] Comment on above: Performed By: #### L 503.6005 #### [facility] [address] [place], [address] IG% 0.500 Normal 0.0-0.9 [facility] Comment on above: Result Comment: IG% - Immature Granulocytes (promyelocytes, myelocytes and metamyelocytes) > 1% indicates that a LEFT SHIFT is Present. Performed By: #### L 503.6005 #### [facility] [address] [place], [address] Lymphocytes/100 WBC (Bld) 53.0 % High 19-41 [facility] Comment on above: Performed By: #### L [id number] #### [facility] [address] [place], [address] MCH (RBC) [Entitic mass] 28.7 pg Normal 27.0-32.0 [facility] Comment on above: Performed By: #### L 503.6005 #### [facility] [address] [place], [address] MCHC (RBC) [Mass/Vol] 31.6 g/dL Low 32-36 [facility] Comment on above: Performed By: #### L 503.6005 #### [facility] [address] [place], [address] MCV (RBC) [Entitic vol] 90.7 fL Normal 80-94 [facility] Comment on above: Performed By: #### L [id number] #### [facility] [address] [place], [address] Monocytes/100 WBC (Bld) 17.5 % High 0-10 [facility] Comment on above: Performed By: #### L [id number] #### [facility] [address] [place], [address] Neutrophils/100 WBC (Bld) 27.2 % Low 47-70 [facility] Comment on above: Performed By: #### L 503.6005 #### [facility] [address] [place], [address] Nucleated RBC (Bld) [#/Vol] 0 10*3/uL Normal 0-5 [facility] Comment on above: Performed By: #### L 503.6005 #### [facility] [address] [place], [address] Platelet mean volume (Bld) [Entitic vol] 9.7 fL Normal 6.2-12.0 [facility] Comment on above: Performed By: #### L 503.6005 #### [facility] [address] [place], [address] Platelets (Bld) [#/Vol] 187 10*3/uL Normal 150-450 [facility] Comment on above: Performed By: #### L 503.6005 #### [facility] [address] [place], [address] RBC (Bld) [#/Vol] 4.29 10*6/uL Low 4.6-6.2 [facility] Comment on above: Performed By: #### L 503.6005 #### [facility] [address] [place], [address] RDW SD 49.2 fl High 35.1-43.9 [facility] Comment on above: Performed By: #### L 503.6005 #### [facility] [address] [place], [address] WBC (Bld) [#/Vol] 4.3 10*3/uL Low 4.4-11.0 [facility] Comment on above: Performed By: #### L 503.6005 #### [facility] [address] [place], [address] Carbon dioxide measurementOr dered By: Husam Khan on 12-29-2024 CO2 [Moles/Vol] 30.0 mmol/L 21.0-32.0 [facility] Chloride measurementOrdered By: Husam Khan on 12-29-2024 Chloride [Moles/Vol] 103 mmol/L 98-107 [facility] Comprehensive Metabolic Prof ilon 12-29-2024 Albumin [Mass/Vol] 3.1 g/dL Low 3.2-5.0 [facility] Comment on above: Performed By: #### L 503.6005 #### [facility] [address] [place], [address] Albumin/Globulin [Mass ratio] 0.7 {ratio} Low 0.9-2.4 [facility] Comment on above: Performed By: #### L [id number] #### [facility] [address] [place], [address] ALK P 97 U/L Normal 45-117 [facility] Comment on above: Performed By: #### L [id number] #### [facility] [address] [place], [address] ALT [Catalytic activity/Vol] 11 U/L Low 16-61 [facility] Comment on above: Performed By: #### L [id number] #### [facility] [address] [place], [address] AST [Catalytic activity/Vol] 15 U/L Normal 15-37 [facility] Comment on above: Performed By: #### L 503.6005 #### [facility] [address] [place], [address] Bilirubin [Mass/Vol] 0.40 mg/dL Normal 0.20-1.00 [facility] Comment on above: Result Comment: For patients on eltrombopag therapy, use of Dimension [place] TBIL is not recommended. Performed By: #### L 503.6005 #### [facility] [address] [place], [address] BUN/CRE 9.6 RATIO Low 10-20 [facility] Comment on above: Performed By: #### L 503.6005 #### [facility] [address] [place], [address] CA,Total 8.7 mg/dL Normal 8.5-10.1 [facility] Comment on above: Performed By: #### L 503.6005 #### [facility] [address] [place], [address] Chloride [Moles/Vol] 103 mmol/L Normal 98-107 [facility] Comment on above: Performed By: #### L 503.6005 #### [facility] [address] [place], [address] CO2 [Moles/Vol] 30.0 mmol/L Normal 21.0-32.0 [facility] Comment on above: Performed By: #### L 503.6005 #### [facility] [address] [place], [address] Creatinine [Mass/Vol] 1.15 mg/dL Normal 0.70-1.30 [facility] Comment on above: Result Comment: The validity of the calculated GFR GFRAA in patients over 70 years has not been determined. Clinical correlation is essential. Performed By: #### L 503.6005 #### [facility] [address] [place], [address] EST GFR - AA 77 mL/min Normal >60 [facility] Comment on above: Result Comment: Afri can [place] GFR Calc Performed By: #### L 503.6005 #### [facility] [address] [place], [address] GAP 5 Normal 5-15 [facility] Comment on above: Performed By: #### L 503.6005 #### [facility] [address] [place], [address] GFR/1.73 sq M.predicted among non-blacks MDRD (S/P/Bld) [Vol rate/Area] 64 mL/min/{1.73_m2} Normal >60 [facility] Comment on above: Result Comment: Non- GFR Calc Performed By: #### L 503.6005 #### [facility] [address] [place], [address] Globulin (S) [Mass/Vol] 4.4 g/dL High 2.2-4.2 [facility] Comment on above: Performed By: #### L 503.6005 #### [facility] [address] [place], [address] Glucose [Mass/Vol] 115 mg/dL High 74-106 [facility] Comment on above: Result Comment: Fast ing Glucose result from 100 to 125 mg/dL suggests IMPAIRED HOMEOSTASIS per A.D.A. criteria. Performed By: #### L 503.6005 #### [facility] [address] [place], [address] Potassium [Moles/Vol] 3.9 mmol/L Normal 3.5-5.1 [facility] Comment on above: Performed By: #### L 503.6005 #### [facility] [address] [place], [address] Sodium [Moles/Vol] 138 mmol/L Normal 136-145 [facility] Comment on above: Performed By: #### L 503.6005 #### [facility] [address] [place], [place], [id number] T PROT 7.5 g/dL Normal 6.4-8.2 [facility] Comment on above: Performed By: #### L 503.6005 #### [facility] [address] [place], [place], [id number] Urea nitrogen [Mass/Vol] 11 mg/dL Normal 7-18 [facility] Comment on above: Performed By: #### L 503.6005 #### [facility] [address] [place], [address] Eosinophil percentageOrdered By: Husam Khan on 12-29-2024 Eosinophils/100 WBC (Bld) 1.6 % 0-5 [facility] Erythrocyte distribution wid th ratioOrdered By: Husam Bill on 12-29-2024 Erythrocyte distribution width (RBC) [Ratio] 15.0 % High 11.6-14.6 [facility] Erythrocyte distribution wid th standard deviationOrdered By: Husam Khan on 12-29-2024 Erythrocyte distribution width (RBC) [Ratio] 49.2 fl High 35.1-43.9 [facility] Glomerular filtration rate ( GFR) estimationOrdered By: Husam Khan on 12-29-2024 GFR/1.73 sq M.predicted among non-blacks MDRD (S/P/Bld) [Vol rate/Area] 64 mL/min/{1.73_m2} >60 [facility] Comment on above: Non- GFR Calc Glucose measurementOrdered B y: Husam Khan on 12-29-2024 Glucose [Mass/Vol] 115 mg/dL High 74-106 [facility] Comment on above: Fasting Glucose resu lt from 100 to 125 mg/dL suggests IMPAIRED HOMEOSTASIS per A.D.A. criteria. Hematocrit Auto (Bld) [Volum e fraction]Ordered By: Husam Khan on 12-29-2024 Hematocrit (Bld) [Volume fraction] 38.9 % Low 40-54 [facility] Hemoglobin measurementOrdere d By: Husam Khan on 12-29-2024 Hemoglobin (Bld) [Mass/Vol] 12.3 g/dL Low 13.0-16.5 [facility] Immature granulocytes/100 WB C Auto (Bld)Ordered By: Husam Khan on 12-29-2024 Immature granulocytes/100 WBC (Bld) 0.500 % 0.0-0.9 [facility] Comment on above: IG% - Immature Granu locytes (promyelocytes, myelocytes and metamyelocytes) > 1% indicates that a LEFT SHIFT is Present. Laboratory - Chemistry and C hemistry - challengeOrdered By: Husam Khan on 12-29-2024 AST [Catalytic activity/Vol] 15 U/L 15-37 [facility] MCV (mean corpuscular volume ) determinationOrdered By: Husam Khan on 12-29-2024 MCV (RBC) [Entitic vol] 90.7 fL 80-94 [facility] Mean corpuscular hemoglobin (MCH) determinationOrdered By: Husam Khan on 12-29-2024 MCH (RBC) [Entitic mass] 28.7 pg 27.0-32.0 [facility] Mean corpuscular hemoglobin concentration (MCHC) determinationOrdered By: Husam Khan on 12-29-2024 MCHC (RBC) [Mass/Vol] 31.6 g/dL Low 32-36 [facility] Mean platelet volume determi nationOrdered By: Husam Khan on 12-29-2024 Platelet mean volume (Bld) [Entitic vol] 9.7 fL 6.2-12.0 [facility] Monocyte percentageOrdered B y: Husam Khan on 12-29-2024 Monocytes/100 WBC (Bld) 17.5 % High 0-10 [facility] Neutrophil percentageOrdered By: Husam Khan on 12-29-2024 Neutrophils/100 WBC (Bld) 27.2 % Low 47-70 [facility] Nucleated red blood cell per centageOrdered By: Husam Khan on 12-29-2024 Nucleated RBC/100 WBC (Bld) [Ratio] 0 % 0-5 [facility] Platelet countOrdered By: Kennedy Khan on 12-29-2024 Platelets (Bld) [#/Vol] 187 10*3/uL 150-450 [facility] Potassium measurementOrdered By: Husam Khan on 12-29-2024 Potassium [Moles/Vol] 3.9 mmol/L 3.5-5.1 [facility] RBC Auto (Bld) [#/Vol]Ordere d By: Husam Khan on 12-29-2024 RBC (Bld) [#/Vol] 4.29 10*6/uL Low 4.6-6.2 [facility] Serum anion gap measurementO rdered By: Husam Khan on 12-29-2024 Anion gap [Moles/Vol] 5 mmol/L 5-15 [facility] Serum globulin measurementOr dered By: Husam Khan on 12-29-2024 Globulin (S) [Mass/Vol] 4.4 g/dL High 2.2-4.2 [facility] Serum or plasma alanine mccoy otransferase (ALT) measurementOrdered By: Husam Khan on 12-29-2024 ALT [Catalytic activity/Vol] 11 U/L Low 16-61 [facility] Serum or plasma albumin donna urement (mass/volume)Ordered By: Husam Khan 12-29-2024 Albumin [Mass/Vol] 3.1 g/dL Low 3.2-5.0 [facility] Serum or plasma alkaline salvador sphatase measurementOrdered By: Husam Khan 12-29-2024 ALP [Catalytic activity/Vol] 97 U/L 45-117 [facility] Serum or plasma calcium donna urement (mass/volume)Ordered By: Husam Khan 12-29-2024 Calcium [Mass/Vol] 8.7 mg/dL 8.5-10.1 [facility] Serum or plasma creatinine m easurement (mass/volume)Ordered By: Husam Khan 12-29-2024 Creatinine [Mass/Vol] 1.15 mg/dL 0.70-1.30 [facility] Comment on above: The validity of the calculated GFR & GFRAA in patients over 70 years has not been determined. Clinical correlation is essential. Serum or plasma thyroid stim ulating hormone (TSH) measurement (units/volume)Ordered By: Husam Khan on 12-29-2024 TSH Qn 3.070 uIU/mL 0.358-3.740 [facility] Serum or plasma urea nitroge n measurement (mass/volume)Ordered By: Husam Khan on 12-29-2024 Urea nitrogen [Mass/Vol] 11 mg/dL 7-18 [facility] Sodium levelOrdered By: Husam Khan on 12-29-2024 Sodium [Moles/Vol] 138 mmol/L 136-145 [facility] Thyroid Stim Hormone (TSH)on 12-29-2024 TSH 3.070 uIU/mL Normal 0.358-3.740 [facility] Comment on above: Performed By: #### L 503.6005 #### [facility] [address] [place], [place], [id number] Total proteinOrdered By: Husam Khan on 12-29-2024 Protein [Mass/Vol] 7.5 g/dL 6.4-8.2 [facility] Vitamin D,25 Hydroxyon 12-29 Vitamin D 25-OH 13.7 ng/mL Normal [facility] Comment on above: Result Comment: Inna min D 25(OH) Status Range Deficiency <20 ng/mL (50nmol/L) Insufficiency 20 - 30 ng/mL (50 - 75 nmol/L) Sufficiency 30 - 100 ng/mL (75 - 250 nmol/L) Toxicity >100 ng/mL (>250 nmol/L) Performed By: #### L [id number] #### [facility] [address] [place], [place], [id number] White blood cell (WBC) count Ordered By: Husam Khan on 12-29-2024 WBC (Bld) [#/Vol] 4.3 10*3/uL Low 4.4-11.0 [facility] Basophil percentageOrdered B y: Marcy Roque on 09-02-2023 Basophil percentage 3.3 mg/dL 2.5-4.9 [facility] Chloride [Moles/Vol] 107 mmol/L 98-107 [facility] Glucose [Mass/Vol] 102 mg/dL 74-106 [facility] Comment on above: Fasting Glucose resu lt from 100 to 125 mg/dL suggests IMPAIRED HOMEOSTASIS per A.D.A. criteria. Potassium [Moles/Vol] 4.2 mmol/L 3.5-5.1 [facility] Sodium [Moles/Vol] 139 mmol/L 136-145 [facility] - Chemistry and C hemistry - challengeOrdered By: Marcy Roque on 09-02-2023 CO2 [Moles/Vol] 28.0 mmol/L 21.0-32.0 [facility] Urea nitrogen/Creatinine [Mass ratio] 13.6 mg/mg 10-20 [facility] No Panel InformationOrdered By: Marcy Roque on 09-02-2023 Estimated GFR (MDRD) Amer 66 mL/min >60 [facility] Comment on above: GFR Calc Estimated GFR (MDRD) Non-Af Amer 55 mL/min >60 [facility] Comment on above: Non- GFR Calc Serum or plasma albumin donna urement (mass/volume)Ordered By: Marcy Roque on 09-02-2023 Albumin [Mass/Vol] 3.5 g/dL 3.2-5.0 [facility] Serum or plasma calcium donna urement (mass/volume)Ordered By: Marcy Roque on 09-02-2023 Calcium [Mass/Vol] 8.9 mg/dL 8.5-10.1 [facility] Serum or plasma creatinine m easurement (mass/volume)Ordered By: Marcy Roque on 09-02-2023 Creatinine [Mass/Vol] 1.32 mg/dL 0.70-1.30 [facility] Comment on above: The validity of the calculated GFR & GFRAA in patients over 70 years has not been determined. Clinical correlation is essential. Serum or plasma urea nitroge n measurement (mass/volume)Ordered By: Marcy Roque on 09-02-2023 Urea nitrogen [Mass/Vol] 18 mg/dL 7-18 [facility] Urine creatinine measurement (mass/volume)Ordered By: Marcy Roque on 09-02-2023 Creatinine (U) [Mass/Vol] 240.00 mg/dL NO RANGE EST. [facility] Urine protein measurement (m ass/volume)Ordered By: Marcy Roque on 09-02-2023 Protein (U) [Mass/Vol] 49.5 mg/dL 0.0-11.8 [facility] Urine protein/creatinine mas s ratioOrdered By: Marcy Roque on 09-02-2023 Protein/Creatinine (U) [Mass ratio] 206 mg/g CRE 0-200 [facility] Absolute lymphocyte countOrd ered By: Geoffrey Garza on 07-07-2023 Lymphocytes Auto (Unsp spec) [#/Vol] 2.20 10*3/uL 0.83-4.51 [facility] Basophil percentageOrdered B y: Geoffrey Garza on 07-07-2023 Basophils/100 WBC (Bld) 0.2 % 0-1 [facility] Bilirubin [Mass/Vol] 0.50 mg/dL 0.20-1.00 [facility] Comment on above: For patients on eltr ombopag therapy, use of [employer]ension [place] TBIL is not recommended. Chloride [Moles/Vol] 106 mmol/L 98-107 [facility] Eosinophils/100 WBC (Bld) 1.6 % 0-5 [facility] Glucose [Mass/Vol] 112 mg/dL 74-106 [facility] Comment on above: Fasting Glucose resu lt from 100 to 125 mg/dL suggests IMPAIRED HOMEOSTASIS per A.D.A. criteria. Neutrophils (Bld) [#/Vol] 1.4 10*3/uL 2.0-7.7 [facility] Neutrophils/100 WBC (Bld) 32.0 % 47-70 [facility] Potassium [Moles/Vol] 3.3 mmol/L 3.5-5.1 [facility] Protein [Mass/Vol] 6.8 g/dL 6.4-8.2 [facility] Sodium [Moles/Vol] 139 mmol/L 136-145 [facility] WBC (Bld) [#/Vol] 4.3 10*3/uL 4.4-11.0 [facility] Blood erythrocytes count (nu mber/volume)Ordered By: Geoffrey Garza on 07-07-2023 RBC (Bld) [#/Vol] 4.12 10*6/uL 4.6-6.2 [facility] Blood hemoglobin measurement (mass/volume)Ordered By: Geoffrey Garza on 07-07-2023 Hemoglobin (Bld) [Mass/Vol] 12.6 g/dL 13.0-16.5 [facility] Blood lymphocytes/100 leukoc ytesOrdered By: Geoffrey Garza on 07-07-2023 Lymphocytes/100 WBC (Bld) 51.5 % 19-41 [facility] Blood monocytes/100 leukocyt esOrdered By: Geoffrey Garza on 07-07-2023 Monocytes/100 WBC (Bld) 14.5 % 0-10 [facility] Blood platelet mean volumeOr dered By: Geoffrey Garza on 07-07-2023 Platelet mean volume (Bld) [Entitic vol] 9.8 fL 6.2-12.0 [facility] Determination of erythrocyte mean corpuscular volume (MCV)Ordered By: Geoffrey Garza on 07-07-2023 MCV (RBC) [Entitic vol] 95.4 fL 80-94 [facility] Hematocrit Auto (Bld) [Volum e fraction][facility]: [facility]23 Hematocrit (Bld) [Volume fraction] 39.3 % 40-54 [facility] Iron measurement (mass/mass) Ordered By: Geoffrey Garza on 07-07-2023 Iron (Unsp spec) [Mass/Mass] 64 ug/dL 65-175 [facility] - Chemistry and C hemistry - challengeOrdered By: [facility] on 07-07-2023 ALP [Catalytic activity/Vol] 94 U/L 45-117 [facility] ALT [Catalytic activity/Vol] 13 U/L 16-61 [facility] CO2 [Moles/Vol] 29.0 mmol/L 21.0-32.0 [facility] Globulin (S) [Mass/Vol] 3.7 g/dL 2.2-4.2 [facility] Urea nitrogen/Creatinine [Mass ratio] 9.8 mg/mg 10-20 [facility] - Hematology and Cell countsOrdered By: Geoffrey Garza on 07-07-2023 Erythrocyte distribution width (RBC) [Entitic vol] 46.0 fL 35.1-43.9 [facility] Erythrocyte distribution width (RBC) [Ratio] 13.5 % 11.6-14.6 [facility] Immature granulocytes/100 WBC (Bld) 0.200 % 0.0-0.9 [facility] Comment on above: IG% - Immature Granu locytes (promyelocytes, myelocytes and metamyelocytes) > 1% indicates that a LEFT SHIFT is Present. MCH (RBC) [Entitic mass] 30.6 pg 27.0-32.0 [facility] Nucleated RBC/100 WBC (Bld) [Ratio] 0 % 0-5 [facility] MCHC Auto (RBC) [Mass/Vol]Or dered By: Geoffrey Garza on 07-07-2023 MCHC (RBC) [Mass/Vol] 32.1 g/dL 32-36 [facility] No Panel InformationOrdered By: Geoffrey Garza on 07-07-2023 Estimated GFR (MDRD) Amer 73 mL/min >60 [facility] Comment on above: GFR Calc Estimated GFR (MDRD) Non-Af Amer 60 mL/min >60 [facility] Comment on above: Non- GFR Calc Total Iron Binding Capacity 247 ug/dL 250-450 [facility] Platelets bldOrdered By: Polo Garza on 07-07-2023 Platelets (Bld) [#/Vol] 168 10*3/uL 150-450 [facility] Serum or plasma albumin donna urement (mass/volume)Ordered By: Geoffrey Garza on 07-07-2023 Albumin [Mass/Vol] 3.1 g/dL 3.2-5.0 [facility] Serum or plasma albumin/glob ulin mass ratioOrdered By: Geoffrey Garza on 07-07-2023 Albumin/Globulin [Mass ratio] 0.8 {ratio} 0.9-2.4 [facility] Serum or plasma calcium donna urement (mass/volume)Ordered By: Geoffrey Garza on 07-07-2023 Calcium [Mass/Vol] 8.5 mg/dL 8.5-10.1 [facility] Serum or plasma creatinine m easurement (mass/volume)Ordered By: Geoffrey Garza on 07-07-2023 Creatinine [Mass/Vol] 1.22 mg/dL 0.70-1.30 [facility] Comment on above: The validity of the calculated GFR & GFRAA in patients over 70 years has not been determined. Clinical correlation is essential. Serum or plasma ferritin yosef surement (mass/volume)Ordered By: Geoffrey Garza on 07-07-2023 Ferritin [Mass/Vol] 51 ng/mL 26-388 [facility] Serum or plasma iron saturat ion measurement (mass fraction)Ordered By: Geoffrey Garza on 07-07-2023 Iron saturation [Mass fraction] 25.9 % 15.0-55.0 [facility] Serum or plasma urea nitroge n measurement (mass/volume)Ordered By: [facility] on 07-07-2023 Urea nitrogen [Mass/Vol] 12 mg/dL 7-18 [facility] Thin prep Papanicolaou smear with manual screeningOrdered By: [facility] Greg on 07-07-2023 Thin prep Papanicolaou smear with manual screening 16 U/L 15-37 [facility] Thin prep Papanicolaou smear with manual screening 4 5-15 [facility] Absolute lymphocyte countOrd ered By: Husam Khan on 06-25-2023 Lymphocytes Auto (Unsp spec) [#/Vol] 2.16 10*3/uL 0.83-4.51 [facility] Basophil percentageOrdered B y: Husam Khan on 06-25-2023 Basophils/100 WBC (Bld) 0.4 % 0-1 [facility] Bilirubin [Mass/Vol] 0.40 mg/dL 0.20-1.00 [facility] Comment on above: For patients on eltr ombopag therapy, use of [employer] [place] TBIL is not recommended. Chloride [Moles/Vol] 108 mmol/L 98-107 [facility] Eosinophils/100 WBC (Bld) 1.5 % 0-5 [facility] Glucose [Mass/Vol] 103 mg/dL 74-106 [facility] Comment on above: Fasting Glucose resu lt from 100 to 125 mg/dL suggests IMPAIRED HOMEOSTASIS per A.D.A. criteria. Neutrophils (Bld) [#/Vol] 1.9 10*3/uL 2.0-7.7 [facility] Neutrophils/100 WBC (Bld) 39.6 % 47-70 [facility] Potassium [Moles/Vol] 3.7 mmol/L 3.5-5.1 [facility] Protein [Mass/Vol] 7.4 g/dL 6.4-8.2 [facility] Sodium [Moles/Vol] 140 mmol/L 136-145 [facility] WBC (Bld) [#/Vol] 4.7 10*3/uL 4.4-11.0 [facility] Blood erythrocytes count (nu mber/volume)Ordered By: Husam Khan on 06-25-2023 RBC (Bld) [#/Vol] 4.04 10*6/uL 4.6-6.2 [facility] Blood hemoglobin measurement (mass/volume)Ordered By: Husam Khan on 06-25-2023 Hemoglobin (Bld) [Mass/Vol] 13.0 g/dL 13.0-16.5 [facility] Blood lymphocytes/100 leukoc ytesOrdered By: Husam Khan on 06-25-2023 Lymphocytes/100 WBC (Bld) 45.6 % 19-41 [facility] Blood monocytes/100 leukocyt esOrdered By: Husam Khan on 06-25-2023 Monocytes/100 WBC (Bld) 12.7 % 0-10 [facility] Blood platelet mean volumeOr dered By: Husam Khan on 06-25-2023 Platelet mean volume (Bld) [Entitic vol] 10.0 fL 6.2-12.0 [facility] Determination of erythrocyte mean corpuscular volume (MCV)Ordered By: Husam Khan on 06-25-2023 MCV (RBC) [Entitic vol] 94.3 fL 80-94 [facility] Hematocrit Auto (Bld) [Volum e fraction]Ordered By: Husam Khan on 06-25-2023 Hematocrit (Bld) [Volume fraction] 38.1 % 40-54 [facility] - Chemistry and C hemistry - challengeOrdered By: Husam Khan on 06-25-2023 ALP [Catalytic activity/Vol] 94 U/L 45-117 [facility] ALT [Catalytic activity/Vol] 15 U/L 16-61 [facility] CO2 [Moles/Vol] 24.0 mmol/L 21.0-32.0 [facility] Globulin (S) [Mass/Vol] 4.2 g/dL 2.2-4.2 [facility] Urea nitrogen/Creatinine [Mass ratio] 12.6 mg/mg 10-20 [facility] - Hematology and Cell countsOrdered By: Husam Khan on 06-25-2023 Erythrocyte distribution width (RBC) [Entitic vol] 46.2 fL 35.1-43.9 [facility] Erythrocyte distribution width (RBC) [Ratio] 13.4 % 11.6-14.6 [facility] Immature granulocytes/100 WBC (Bld) 0.200 % 0.0-0.9 [facility] Comment on above: IG% - Immature Granu locytes (promyelocytes, myelocytes and metamyelocytes) > 1% indicates that a LEFT SHIFT is Present. MCH (RBC) [Entitic mass] 32.2 pg 27.0-32.0 [facility] Nucleated RBC/100 WBC (Bld) [Ratio] 0 % 0-5 [facility] MCHC Auto (RBC) [Mass/Vol]Or dered By: Husam Khan on 06-25-2023 MCHC (RBC) [Mass/Vol] 34.1 g/dL 32-36 [facility] No Panel InformationOrdered By: Husam Khan on 06-25-2023 Estimated GFR (MDRD) Amer 69 mL/min >60 [facility] Comment on above: GFR Calc Estimated GFR (MDRD) Non-Af Amer 57 mL/min >60 [facility] Comment on above: Non- GFR Calc Thyroid Stimulating Hormone (TSH) 2.81 uIU/mL 0.358-3.74 [facility] Vitamin D 25-Hydroxy 13.2 ng/mL [facility] Comment on above: Vitamin D 25(OH) Sta tus Range Deficiency <20 ng/mL (50nmol/L) Insufficiency 20 - 30 ng/mL (50 - 75 nmol/L) Sufficiency 30 - 100 ng/mL (75 - 250 nmol/L) Toxicity >100 ng/mL (>250 nmol/L) Platelets bldOrdered By: Husam Khan on 06-25-2023 Platelets (Bld) [#/Vol] 187 10*3/uL 150-450 [facility] Serum or plasma albumin donna urement (mass/volume)Ordered By: Husam Khan on 06-25-2023 Albumin [Mass/Vol] 3.2 g/dL 3.2-5.0 [facility] Serum or plasma albumin/glob ulin mass ratioOrdered By: Husam Khan on 06-25-2023 Albumin/Globulin [Mass ratio] 0.8 {ratio} 0.9-2.4 [facility] Serum or plasma calcium donna urement (mass/volume)Ordered By: Husam Khan on 06-25-2023 Calcium [Mass/Vol] 8.2 mg/dL 8.5-10.1 [facility] Serum or plasma creatinine m easurement (mass/volume)Ordered By: Husam Khan on 06-25-2023 Creatinine [Mass/Vol] 1.27 mg/dL 0.70-1.30 [facility] Comment on above: The validity of the calculated GFR & GFRAA in patients over 70 years has not been determined. Clinical correlation is essential. Serum or plasma urea nitroge n measurement (mass/volume)Ordered By: Husam Khan on 06-25-2023 Urea nitrogen [Mass/Vol] 16 mg/dL 7-18 [facility] Thin prep Papanicolaou smear with manual screeningOrdered By: Husam Khan on 06-25-2023 Thin prep Papanicolaou smear with manual screening 19 U/L 15-37 [facility] Thin prep Papanicolaou smear with manual screening 8 5-15 [facility] Culture, urineOrdered By: Dr Sara Roque on 02-12-2023 Bacteria identified Cx Nom (U) Mixed Gram Pos & Gram Neg Org [facility] 24 hour urine alpha 2 globul in/total protein ratio by electrophoresis (mass fraction)Ordered By: Dr. Roque on 02-10-2023 Alpha 2 globulin Elph (24H U) [Mass fraction] 7.5 % . [facility] 24 hour urine beta globulin/ total protein ratio by electrophoresis (mass fraction)Ordered By: Dr. Roque on 02-10-2023 Beta globulin Elph (24H U) [Mass fraction] 13.1 % . [facility] 24 hour urine gamma globulin /total protein ratio by electrophoresis (mass fraction)Ordered By: Dr. Roque on 02-10-2023 Gamma globulin Elph (24H U) [Mass fraction] 13.9 % . [facility] Amorphous sediment detection in urine sediment by light microscopyOrdered By: Dr. Roque on 02-10-2023 Amorphous sediment LM Ql (Urine sed) 2+ [facility] Basophil percentageOrdered B y: Dr. Roque on 02-10-2023 Basophil percentage 0 SEEN /hpf 0-5 [facility] Bilirubin Test strip Ql (U)O rdered By: Dr. Roque on 02-10-2023 Bilirubin Ql (U) Negative Negative [facility] Ketones Test strip Ql (U)Ord ered By: Dr. Roque on 02-10-2023 Ketones Ql (U) Negative Negative [facility] Mucus LM Ql (Urine sed)Order ed By: Dr. Roque on 02-10-2023 Mucus Ql (Urine sed) 0 SEEN /hpf [facility] Nitrite Test strip Ql (U)Ord ered By: Dr. Roque on 02-10-2023 Nitrite Ql (U) Negative Negative [facility] No Panel InformationOrdered By: Dr. Roque on 02-10-2023 Urine Immunofixation PEP Note Comment . [facility] Comment on above: Protein electrophore sis scan will follow via computer,mail, or magnetic prospecting supervisor delivery.Performed at: [employer] [id number] Director: Alcides Alicea PhD, Phone: [phone] Protein Test strip Ql (U)Ord ered By: Dr. Roque on 02-10-2023 Protein Ql (U) 30 mg/dl Negative [facility] Squamous epithelial cells de tection in urine sediment by light microscopyOrdered By: Dr. Roque on 02-10-2023 Epithelial cells.squamous LM Ql (Urine sed) 0 SEEN /hpf 0-5 [facility] Urine albumin/total protein mass ratio by electrophoresisOrdered By: Dr. Roque on 02-10-2023 Albumin Elph (U) [Mass fraction] 61.3 % . [facility] Urine alpha 1 globulin/total protein ratio by electrophoresis (mass fraction)Ordered By: Dr. Roque on 02-10-2023 Alpha 1 globulin Elph (U) [Mass fraction] 4.1 % . [facility] Urine blood detectionOrdered By: Dr. Roque on 02-10-2023 RBC Ql (U) Negative Negative [facility] RBC Ql (U) 0 SEEN /hpf 0-5 [facility] Urine clarityOrdered By: Dr. Roque on 02-10-2023 Clarity (U) Clear Clear [facility] Urine color determinationOrd ered By: Dr. Roque on 02-10-2023 Color (U) Yellow Yellow [facility] Urine creatinine measurement (mass/volume)Ordered By: Dr. Roque on 02-10-2023 Creatinine (U) [Mass/Vol] 184.00 mg/dL NO RANGE EST. [facility] Urine glucose detectionOrder ed By: Dr. Roque on 02-10-2023 Glucose Ql (U) Normal mg/dl Normal [facility] Urine leukocyte esterase det ection by dipstickOrdered By: Dr. Roque on 02-10-2023 Leukocyte esterase Test strip Ql (U) Negative Negative [facility] Urine monoclonal protein/tot al protein mass ratio by electrophoresisOrdered By: Dr. Roque on 02-10-2023 Protein.monoclonal Elph (U) [Mass fraction] See comment [facility] Comment on above: NOT OBSERVED Urine pHOrdered By: Dr. Roque on 02-10-2023 pH (U) 5.0 [pH] 5.0 - 8.0 [facility] Urine protein measurement (m ass/volume)Ordered By: Dr. Roque on 02-10-2023 Protein (U) [Mass/Vol] 57.7 mg/dL 0.0-11.8 [facility] Protein (U) [Mass/Vol] 54.4 mg/dL Not Estab. [facility] Urine protein/creatinine mas s ratioOrdered By: Dr. Roque on 02-10-2023 Protein/Creatinine (U) [Mass ratio] 314 mg/g CRE 0-200 [facility] Urine sediment bacteria coun t by microscopy (number/high power field)Ordered By: Dr. Roque on 02-10-2023 Bacteria LM.HPF (Urine sed) [#/Area] 1 /[HPF] None Seen [facility] Urine specific gravity measu rementOrdered By: Dr. Roque on 02-10-2023 Specific gravity (U) [Rel density] 1.015 1.002-1.030 [facility] Urobilinogen Auto test strip Ql (U)Ordered By: Dr. Roque on 02-10-2023 Urobilinogen Ql (U) Normal mg/dl Normal [facility] Absolute lymphocyte countOrd ered By: Dr. Khan on 12-25-2022 Lymphocytes Auto (Unsp spec) [#/Vol] 2.24 10*3/uL 0.83-4.51 [facility] Basophil percentageOrdered B y: Dr. Khan on 12-25-2022 Basophils/100 WBC (Bld) 0.2 % 0-1 [facility] Bilirubin [Mass/Vol] 0.40 mg/dL 0.20-1.00 [facility] Comment on above: For patients on eltr ombopag therapy, use of [employer] [place] TBIL is not recommended. Chloride [Moles/Vol] 103 mmol/L 98-107 [facility] Eosinophils/100 WBC (Bld) 1.3 % 0-5 [facility] Glucose [Mass/Vol] 101 mg/dL 74-106 [facility] Comment on above: Fasting Glucose resu lt from 100 to 125 mg/dL suggests IMPAIRED HOMEOSTASIS per A.D.A. criteria. Neutrophils (Bld) [#/Vol] 1.6 10*3/uL 2.0-7.7 [facility] Neutrophils/100 WBC (Bld) 35.8 % 47-70 [facility] Potassium [Moles/Vol] 3.8 mmol/L 3.5-5.1 [facility] Protein [Mass/Vol] 7.5 g/dL 6.4-8.2 [facility] Sodium [Moles/Vol] 138 mmol/L 136-145 [facility] WBC (Bld) [#/Vol] 4.5 10*3/uL 4.4-11.0 [facility] Blood erythrocytes count (nu mber/volume)Ordered By: Dr. Khan on 12-25-2022 RBC (Bld) [#/Vol] 4.43 10*6/uL 4.6-6.2 [facility] Blood hemoglobin measurement (mass/volume)Ordered By: Dr. Khan on 12-25-2022 Hemoglobin (Bld) [Mass/Vol] 13.4 g/dL 13.0-16.5 [facility] Blood lymphocytes/100 leukoc ytesOrdered By: Dr. Khan on 12-25-2022 Lymphocytes/100 WBC (Bld) 50.2 % 19-41 [facility] Blood monocytes/100 leukocyt esOrdered By: Dr. Khan on 12-25-2022 Monocytes/100 WBC (Bld) 12.3 % 0-10 [facility] Blood platelet mean volumeOr dered By: Dr. Khan on 12-25-2022 Platelet mean volume (Bld) [Entitic vol] 9.6 fL 6.2-12.0 [facility] Determination of erythrocyte mean corpuscular volume (MCV)Ordered By: Dr. Khan on 12-25-2022 MCV (RBC) [Entitic vol] 93.9 fL 80-94 [facility] Hematocrit Auto (Bld) [Volum e fraction]Ordered By: Dr. Khan on 12-25-2022 Hematocrit (Bld) [Volume fraction] 41.6 % 40-54 [facility] - Chemistry and C hemistry - challengeOrdered By: Dr. Khan on 12-25-2022 ALP [Catalytic activity/Vol] 90 U/L 45-117 [facility] ALT [Catalytic activity/Vol] 20 U/L 16-61 [facility] CO2 [Moles/Vol] 26.0 mmol/L 21.0-32.0 [facility] Globulin (S) [Mass/Vol] 4.1 g/dL 2.2-4.2 [facility] Urea nitrogen/Creatinine [Mass ratio] 9.9 mg/mg 10-20 [facility] - Hematology and Cell countsOrdered By: Dr. Khan on 12-25-2022 Erythrocyte distribution width (RBC) [Entitic vol] 45.6 fL 35.1-43.9 [facility] Erythrocyte distribution width (RBC) [Ratio] 13.2 % 11.6-14.6 [facility] Immature granulocytes/100 WBC (Bld) 0.200 % 0.0-0.9 [facility] Comment on above: IG% - Immature Granu locytes (promyelocytes, myelocytes and metamyelocytes) > 1% indicates that a LEFT SHIFT is Present. MCH (RBC) [Entitic mass] 30.2 pg 27.0-32.0 [facility] Nucleated RBC/100 WBC (Bld) [Ratio] 0 % 0-5 [facility] MCHC Auto (RBC) [Mass/Vol]Or dered By: Dr. Khan on 12-25-2022 MCHC (RBC) [Mass/Vol] 32.2 g/dL 32-36 [facility] No Panel InformationOrdered By: Dr. Khan on 12-25-2022 Estimated GFR (MDRD) Amer 67 mL/min >60 [facility] Comment on above: GFR Calc Estimated GFR (MDRD) Non-Af Amer 55 mL/min >60 [facility] Comment on above: Non- GFR Calc Thyroid Stimulating Hormone (TSH) 1.95 uIU/mL 0.358-3.74 [facility] Vitamin D 25-Hydroxy 14.6 ng/mL [facility] Comment on above: Vitamin D 25(OH) Sta tus Range Deficiency <20 ng/mL (50nmol/L) Insufficiency 20 - 30 ng/mL (50 - 75 nmol/L) Sufficiency 30 - 100 ng/mL (75 - 250 nmol/L) Toxicity >100 ng/mL (>250 nmol/L) Platelets bldOrdered By: Dr. Khan on 12-25-2022 Platelets (Bld) [#/Vol] 198 10*3/uL 150-450 [facility] Serum or plasma albumin donna urement (mass/volume)Ordered By: Dr. Khan on 12-25-2022 Albumin [Mass/Vol] 3.4 g/dL 3.2-5.0 [facility] Serum or plasma albumin/glob ulin mass ratioOrdered By: Dr. Khan on 12-25-2022 Albumin/Globulin [Mass ratio] 0.8 {ratio} 0.9-2.4 [facility] Serum or plasma calcium donna urement (mass/volume)Ordered By: Dr. Khan on 12-25-2022 Calcium [Mass/Vol] 8.8 mg/dL 8.5-10.1 [facility] Serum or plasma creatinine m easurement (mass/volume)Ordered By: Dr. Khan on 12-25-2022 Creatinine [Mass/Vol] 1.31 mg/dL 0.70-1.30 [facility] Comment on above: The validity of the calculated GFR & GFRAA in patients over 70 years has not been determined. Clinical correlation is essential. Serum or plasma urea nitroge n measurement (mass/volume)Ordered By: Dr. Khan on 12-25-2022 Urea nitrogen [Mass/Vol] 13 mg/dL 7-18 [facility] Thin prep Papanicolaou smear with manual screeningOrdered By: Dr. Khan on 12-25-2022 Thin prep Papanicolaou smear with manual screening 17 U/L 15-37 [facility] Thin prep Papanicolaou smear with manual screening 9 5-15 [facility] - Microbiology an d Antimicrobial susceptibilityOrdered By: Dr. Khan on 10-20-2022 SARS-CoV-2 (COVID-19) RNA TRICIA+probe Ql (Unsp spec) Not detected Not Detect [facility] Comment on above: Normal Reference Ran ge: Not DetectedMethod:(RT-PCR) real-time reverse transcriptase PCRLuminex [employer] Instrument*The Food and Drug Administration (FDA) has issued an Emergency Use Authorization (EAU) for the [employer] SARS-CoV-2 Assay for the rapid detection of [...] 10-20-2022 Influenza Types A,B Direct FA (RYLAN) [facility] RSV Ag EIAOrdered By: Dr. Kaleigh spencer on 10-20-2022 RSV Ag Immune stain Ql (Tiss) [facility] Basophil percentageon 2021 Basophil percentage 2.9 mg/dL 2.5-4.9 [facility] Work Phone: Chloride [Moles/Vol] 103 mmol/L 98-107 [facility] Work Phone: Glucose [Mass/Vol] 127 mg/dL 74-106 [facility] Work Phone: Comment on above: Fasting Glucose resu lt greater than or equal to 126 mg/dL suggests DIABETES MELLITUS per A.D.A. criteria. Potassium [Moles/Vol] 3.8 mmol/L 3.5-5.1 [facility]: Sodium [Moles/Vol] 140 mmol/L 136-145 [facility] Work Phone: WBC (Bld) [#/Vol] 4.6 10*3/uL 4.4-11.0 [facility] Work Phone: Blood erythrocytes count (nu mber/volume)on 08-12-2022 RBC (Bld) [#/Vol] 4.40 10*6/uL 4.6-6.2 [facility] Work Phone: Blood hemoglobin measurement (mass/volume)on 08-12-2022 Hemoglobin (Bld) [Mass/Vol] 13.6 g/dL 13.0-16.5 [facility] Work Phone: Blood platelet mean volumeon 08-12-2022 Platelet mean volume (Bld) [Entitic vol] 9.6 fL 6.2-12.0 [facility] Work Phone: Determination of erythrocyte mean corpuscular volume (MCV)on 08-12-2022 MCV (RBC) [Entitic vol] 95.0 fL 80-94 [facility] Work Phone: Hematocrit Auto (Bld) [Volum e fraction]on 08-12-2022 Hematocrit (Bld) [Volume fraction] 41.8 % 40-54 [facility] Work Phone: Laboratory - Chemistry and C hemistry - challengeon 08-12-2022 CO2 [Moles/Vol] 29.0 mmol/L 21.0-32.0 [facility] Work Phone: Urea nitrogen/Creatinine [Mass ratio] 7.7 mg/mg 10- [facility] Work Phone: Laboratory - Hematology and Cell countson 08-12-2022 Erythrocyte distribution width (RBC) [Entitic vol] 46.3 fL 35.1-43.9 [facility] Work Phone: Erythrocyte distribution width (RBC) [Ratio] 13.2 % 11.6-14.6 [facility] Work Phone: MCH (RBC) [Entitic mass] 30.9 pg 27.0-32.0 [facility] Work Phone: MCHC Auto (RBC) [Mass/Vol]on 08-12-2022 MCHC (RBC) [Mass/Vol] 32.5 g/dL 32-36 [facility] Work Phone: No Panel Informationon 08-12 Estimated GFR (MDRD) Amer 68 mL/min >60 [facility] Work Phone: Comment on above: GFR Calc Estimated GFR (MDRD) Non-Af Amer 56 mL/min >60 [facility] Work Phone: Comment on above: Non- GFR Calc Platelets bldon 08-12-2022 Platelets (Bld) [#/Vol] 167 10*3/uL 150-450 [facility] Work Phone: Serum or plasma albumin donna urement (mass/volume)on 08-12-2022 Albumin [Mass/Vol] 3.3 g/dL 3.2-5.0 [facility] Work Phone: Serum or plasma calcium donna urement (mass/volume)on 08-12-2022 Calcium [Mass/Vol] 8.9 mg/dL 8.5-10.1 [facility] Work Phone: Serum or plasma creatinine m easurement (mass/volume)on 08-12-2022 Creatinine [Mass/Vol] 1.30 mg/dL 0.70-1.30 [facility] Work Phone: Comment on above: The validity of the calculated GFR & GFRAA in patients over 70 years has not been determined. Clinical correlation is essential. Serum or plasma urea nitroge n measurement (mass/volume)on 08-12-2022 Urea nitrogen [Mass/Vol] 10 mg/dL 7-18 [facility] Work Phone: Absolute lymphocyte counton 07-08-2022 Lymphocytes Auto (Unsp spec) [#/Vol] 1.83 10*3/uL 0.83-4.51 [facility] Work Phone: Albumin Elph [Mass/Vol]on Albumin [Mass/Vol] 3.4 g/dL 2.9-4.4 [facility] Work Phone: Basophil percentageon 2021 Basophils/100 WBC (Bld) 0.2 % 0-1 [facility] Work Phone: Bilirubin [Mass/Vol] 0.40 mg/dL 0.20-1.00 [facility] Work Phone: Comment on above: For patients on eltr ombopag therapy, use of [employer] [place] TBIL is not recommended. Chloride [Moles/Vol] 105 mmol/L 98-107 [facility] Work Phone: Eosinophils/100 WBC (Bld) 4.0 % 0-5 [facility] Work Phone: Glucose [Mass/Vol] 123 mg/dL 74-106 [facility] Work Phone: Comment on above: Fasting Glucose resu lt from 100 to 125 mg/dL suggests IMPAIRED HOMEOSTASIS per A.D.A. criteria. Neutrophils (Bld) [#/Vol] 1.5 10*3/uL 2.0-7.7 [facility] Work Phone: Neutrophils/100 WBC (Bld) 35.0 % 47-70 [facility] Work Phone: [phone] Potassium [Moles/Vol] 3.7 mmol/L 3.5-5.1 [facility] Work Phone: Protein [Mass/Vol] 7.2 g/dL 6.4-8.2 [facility] Work Phone: Sodium [Moles/Vol] 140 mmol/L 136-145 [facility] Work Phone: WBC (Bld) [#/Vol] 4.2 10*3/uL 4.4-11.0 [facility] Work Phone: Blood erythrocytes count (nu mber/volume)on 07-08-2022 RBC (Bld) [#/Vol] 4.26 10*6/uL 4.6-6.2 [facility] Work Phone: Blood hemoglobin measurement (mass/volume)on 07-08-2022 Hemoglobin (Bld) [Mass/Vol] 12.8 g/dL 13.0-16.5 [facility] Work Phone: Blood lymphocytes/100 leukoc yteson 07-08-2022 Lymphocytes/100 WBC (Bld) 43.6 % 19-41 [facility] Work Phone: Blood monocytes/100 leukocyt eson 07-08-2022 Monocytes/100 WBC (Bld) 16.7 % 0-10 [facility] Work Phone: Blood platelet mean volumeon 07-08-2022 Platelet mean volume (Bld) [Entitic vol] 9.2 fL 6.2-12.0 [facility] Work Phone: Determination of erythrocyte mean corpuscular volume (MCV)on 07-08-2022 MCV (RBC) [Entitic vol] 92.5 fL 80-94 [facility] Work Phone: Hematocrit Auto (Bld) [Volum e fraction]on 07-08-2022 Hematocrit (Bld) [Volume fraction] 39.4 % 40-54 [facility] Work Phone: Interpretation of serum or p lasma protein pattern by immunofixation (narrative resulton 07-08-2022 Protein Fractions Immunofixation Carlin [Interp] See comment [facility] Work Phone: Comment on above: MONOCLONAL IGG LAMBD A = 0.2 G/DLDUE TO THE SMALL QUANTITY OF MONOCLONAL IGM KAPPA, UNABLE TOQUANTITATE THE M-SPIKE Iron measurement (mass/mass) on 07-08-2022 Iron (Unsp spec) [Mass/Mass] 51 ug/dL 65-175 [facility] Work Phone: Laboratory - Chemistry and C hemistry - challengeon 07-08-2022 ALP [Catalytic activity/Vol] 95 U/L 45-117 [facility] Work Phone: ALT [Catalytic activity/Vol] 15 U/L 16-61 [facility] Work Phone: CO2 [Moles/Vol] 29.0 mmol/L 21.0-32.0 [facility] Work Phone: Cobalamin (Vitamin B12) [Mass/Vol] 1123 pg/mL 211-911 [facility] Work Phone: Urea nitrogen/Creatinine [Mass ratio] 10.4 mg/mg 10-20 [facility] Work Phone: Laboratory - Hematology and Cell countson 07-08-2022 Erythrocyte distribution width (RBC) [Entitic vol] 44.1 fL 35.1-43.9 [facility] Work Phone: Erythrocyte distribution width (RBC) [Ratio] 13.1 % 11.6-14.6 [facility] Work Phone: [phone] Immature granulocytes/100 WBC (Bld) 0.500 % 0.0-0.9 [facility] Work Phone: Comment on above: IG% - Immature Granu locytes (promyelocytes, myelocytes and metamyelocytes) > 1% indicates that a LEFT SHIFT is Present. MCH (RBC) [Entitic mass] 30.0 pg 27.0-32.0 [facility] Work Phone: Nucleated RBC/100 WBC (Bld) [Ratio] 0 % 0-5 [facility] Work Phone: MCHC Auto (RBC) [Mass/Vol]on 07-08-2022 MCHC (RBC) [Mass/Vol] 32.5 g/dL 32-36 [facility] Work Phone: No Panel Informationon 07-08 Addendum Document Comment . [facility] Work Phone: Comment on above: Protein electrophore sis scan will follow via computer,mail, or magnetic prospecting supervisor delivery.Performed at: [address] [id number] Director: Alcides Alicea PhD, Phone: [phone] Estimated GFR (MDRD) Amer 65 mL/min >60 [facility] Work Phone: Comment on above: GFR Calc Estimated GFR (MDRD) Non-Af Amer 54 mL/min >60 [facility] Work Phone: Comment on above: Non- GFR Calc Total Iron Binding Capacity 250 ug/dL 250-450 [facility] Work Phone: Platelets bldon 07-08-2022 Platelets (Bld) [#/Vol] 163 10*3/uL 150-450 [facility] Work Phone: Serum [id number] measu rement by electrophoresison 07-08-2022 Alpha 1 globulin Elph [Mass/Vol] 0.2 g/dL 0.0-0.4 [facility] Work Phone: Alpha 1 globulin Elph [Mass/Vol] 0.9 g/dL 0.4-1.0 [facility] Work Phone: Serum globulin measurement ( mass/volume)on 07-08-2022 Globulin (S) [Mass/Vol] 3.3 g/dL 2.2-3.9 [facility] Work Phone: Serum or plasma IgA measurem ent (mass/volume)on 07-08-2022 IgA [Mass/Vol] 464 mg/dL 61-437 [facility] Work Phone: Serum or plasma IgG measurem ent (mass/volume)on 07-08-2022 IgG [Mass/Vol] 1344 mg/dL 603-1613 [facility] Work Phone: Serum or plasma IgM measurem ent (mass/volume)on 07-08-2022 IgM [Mass/Vol] 148 mg/dL 15-143 [facility] Work Phone: Serum or plasma albumin donna urement (mass/volume)on 07-08-2022 Albumin [Mass/Vol] 3.2 g/dL 3.2-5.0 [facility] Work Phone: Serum or plasma albumin/glob ulin mass ratioon 07-08-2022 Albumin/Globulin [Mass ratio] 0.8 {ratio} 0.9-2.4 [facility] Work Phone: Serum or plasma beta globuli n measurement by electrophoresis (mass/volume)on 07-08-2022 Beta globulin Elph [Mass/Vol] 1.0 g/dL 0.7-1.3 [facility] Work Phone: Serum or plasma calcium donna urement (mass/volume)on 07-08-2022 Calcium [Mass/Vol] 8.7 mg/dL 8.5-10.1 [facility] Work Phone: Serum or plasma creatinine m easurement (mass/volume)on 07-08-2022 Creatinine [Mass/Vol] 1.34 mg/dL 0.70-1.30 [facility] Work Phone: Comment on above: The validity of the calculated GFR & GFRAA in patients over 70 years has not been determined. Clinical correlation is essential. Serum or plasma ferritin yosef surement (mass/volume)on 07-08-2022 Ferritin [Mass/Vol] 54 ng/mL 26-388 [facility] Work Phone: Serum or plasma gamma globul in measurement by electrophoresis (mass/volume)on 07-08-2022 Gamma globulin Elph [Mass/Vol] 1.3 g/dL 0.4-1.8 [facility] Work Phone: Serum or plasma immunoelectr ophoresis interpretation (nominal result)on 07-08-2022 Interpretation IEP [Interp] Comment . [facility] Work Phone: Comment on above: Immunofixation shows IgG monoclonal protein with lambdalight chain specificity.Immunofixation shows IgM monoclonal protein with kappalight chain specificity. Serum or plasma iron saturat ion measurement (mass fraction)on 07-08-2022 Iron saturation [Mass fraction] 20.4 % 15.0-55.0 [facility] Work Phone: Serum or plasma urea nitroge n measurement (mass/volume)on 07-08-2022 Urea nitrogen [Mass/Vol] 14 mg/dL 7-18 [facility] Work Phone: Thin prep Papanicolaou smear with manual screeningon 07-08-2022 Thin prep Papanicolaou smear with manual screening 18 U/L 15-37 [facility] Work Phone: Thin prep Papanicolaou smear with manual screening 6 5-15 [facility] Work Phone: Thin prep Papanicolaou smear with manual screening 1.1 0.7-1.7 [facility] Work Phone: Total protein bloodon 2021 Protein [Mass/Vol] 6.7 g/dL 6.0-8.5 [facility] Work Phone: Absolute lymphocyte counton 06-19-2022 Lymphocytes Auto (Unsp spec) [#/Vol] 1.86 10*3/uL 0.83-4.51 [facility] Work Phone: Basophil percentageon 2021 Basophils/100 WBC (Bld) 0.4 % 0-1 [facility] Work Phone: Bilirubin [Mass/Vol] 0.40 mg/dL 0.20-1.00 [facility] Work Phone: Comment on above: For patients on eltr ombopag therapy, use of [employer] [place] TBIL is not recommended. Chloride [Moles/Vol] 103 mmol/L 98-107 [facility] Work Phone: Eosinophils/100 WBC (Bld) 2.6 % 0-5 [facility] Work Phone: Glucose [Mass/Vol] 96 mg/dL 74-106 [facility] Work Phone: Neutrophils (Bld) [#/Vol] 1.8 10*3/uL 2.0-7.7 [facility] Work Phone: Neutrophils/100 WBC (Bld) 39.8 % 47-70 [facility] Work Phone: [phone] Potassium [Moles/Vol] 3.8 mmol/L 3.5-5.1 [facility] Work Phone: Protein [Mass/Vol] 7.4 g/dL 6.4-8.2 [facility] Work Phone: Sodium [Moles/Vol] 137 mmol/L 136-145 [facility] Work Phone: WBC (Bld) [#/Vol] 4.6 10*3/uL 4.4-11.0 [facility] Work Phone: Blood erythrocytes count (nu mber/volume)on 06-19-2022 RBC (Bld) [#/Vol] 4.38 10*6/uL 4.6-6.2 [facility] Work Phone: Blood hemoglobin measurement (mass/volume)on 06-19-2022 Hemoglobin (Bld) [Mass/Vol] 13.3 g/dL 13.0-16.5 [facility] Work Phone: [phone] Blood lymphocytes/100 leukoc yteson 06-19-2022 Lymphocytes/100 WBC (Bld) 40.6 % 19-41 [facility] Work Phone: [phone] Blood monocytes/100 leukocyt eson 06-19-2022 Monocytes/100 WBC (Bld) 16.4 % 0-10 [facility] Work Phone: [phone] Blood platelet mean volumeon 06-19-2022 Platelet mean volume (Bld) [Entitic vol] 10.0 fL 6.2-12.0 [facility] Work Phone: Determination of erythrocyte mean corpuscular volume (MCV)on 06-19-2022 MCV (RBC) [Entitic vol] 90.9 fL 80-94 [facility] Work Phone: Hematocrit Auto (Bld) [Volum e fraction]on 06-19-2022 Hematocrit (Bld) [Volume fraction] 39.8 % 40-54 [facility] Work Phone: Laboratory - Chemistry and C hemistry - challengeon 06-19-2022 ALP [Catalytic activity/Vol] 95 U/L 45-117 [facility] Work Phone: ALT [Catalytic activity/Vol] 18 U/L 16-61 [facility] Work Phone: CO2 [Moles/Vol] 27.0 mmol/L 21.0-32.0 [facility] Work Phone: Globulin (S) [Mass/Vol] 4.1 g/dL 2.2-4.2 [facility] Work Phone: Urea nitrogen/Creatinine [Mass ratio] 10.3 mg/mg 10-20 [facility] Work Phone: Laboratory - Hematology and Cell countson 06-19-2022 Erythrocyte distribution width (RBC) [Entitic vol] 44.1 fL 35.1-43.9 [facility] Work Phone: Erythrocyte distribution width (RBC) [Ratio] 13.3 % 11.6-14.6 [facility] Work Phone: Immature granulocytes/100 WBC (Bld) 0.200 % 0.0-0.9 [facility] Work Phone: Comment on above: IG% - Immature Granu locytes (promyelocytes, myelocytes and metamyelocytes) > 1% indicates that a LEFT SHIFT is Present. MCH (RBC) [Entitic mass] 30.4 pg 27.0-32.0 [facility] Work Phone: Nucleated RBC/100 WBC (Bld) [Ratio] 0 % 0-5 [facility] Work Phone: MCHC Auto (RBC) [Mass/Vol]on 06-19-2022 MCHC (RBC) [Mass/Vol] 33.4 g/dL 32-36 [facility] Work Phone: No Panel Informationon 06-19 Estimated GFR (MDRD) Amer 70 mL/min >60 [facility] Work Phone: Comment on above: GFR Calc Estimated GFR (MDRD) Non-Af Amer 58 mL/min >60 [facility] Work Phone: Comment on above: Non- GFR Calc Thyroid Stimulating Hormone (TSH) 2.13 uIU/mL 0.358-3.74 [facility] Work Phone: Vitamin D 25-Hydroxy 24.2 ng/mL [facility] Work Phone: Comment on above: Vitamin D 25(OH) Sta tus Range Deficiency <20 ng/mL (50nmol/L) Insufficiency 20 - 30 ng/mL (50 - 75 nmol/L) Sufficiency 30 - 100 ng/mL (75 - 250 nmol/L) Toxicity >100 ng/mL (>250 nmol/L) Platelets bldon 06-19-2022 Platelets (Bld) [#/Vol] 175 10*3/uL 150-450 [facility] Work Phone: Serum or plasma albumin donna urement (mass/volume)on 06-19-2022 Albumin [Mass/Vol] 3.3 g/dL 3.2-5.0 [facility] Work Phone: Serum or plasma albumin/glob ulin mass ratioon 06-19-2022 Albumin/Globulin [Mass ratio] 0.8 {ratio} 0.9-2.4 [facility] Work Phone: Serum or plasma calcium donna urement (mass/volume)on 06-19-2022 Calcium [Mass/Vol] 8.6 mg/dL 8.5-10.1 [facility] Work Phone: Serum or plasma creatinine m easurement (mass/volume)on 06-19-2022 Creatinine [Mass/Vol] 1.26 mg/dL 0.70-1.30 [facility] Work Phone: Comment on above: The validity of the calculated GFR & GFRAA in patients over 70 years has not been determined. Clinical correlation is essential. Serum or plasma urea nitroge n measurement (mass/volume)on 06-19-2022 Urea nitrogen [Mass/Vol] 13 mg/dL 7-18 [facility] Work Phone: Thin prep Papanicolaou smear with manual screeningon 06-19-2022 Thin prep Papanicolaou smear with manual screening 18 U/L 15-37 [facility] Work Phone: Thin prep Papanicolaou smear with manual screening 7 5-15 [facility] Work Phone: Absolute lymphocyte counton 03-04-2022 Lymphocytes Auto (Unsp spec) [#/Vol] 1.88 10*3/uL 0.83-4.51 [facility] Work Phone: Basophil percentageon 2021 Basophils/100 WBC (Bld) 0.5 % 0-1 [facility] Work Phone: Bilirubin [Mass/Vol] 0.50 mg/dL 0.20-1.00 [facility] Work Phone: Comment on above: For patients on eltr ombopag therapy, use of [employer] [place] TBIL is not recommended. Chloride [Moles/Vol] 104 mmol/L 98-107 [facility] Work Phone: Eosinophils/100 WBC (Bld) 1.0 % 0-5 [facility] Work Phone: Glucose [Mass/Vol] 122 mg/dL 74-106 [facility] Work Phone: Comment on above: Fasting Glucose resu lt from 100 to 125 mg/dL suggests IMPAIRED HOMEOSTASIS per A.D.A. criteria. Neutrophils (Bld) [#/Vol] 1.7 10*3/uL 2.0-7.7 [facility] Work Phone: Neutrophils/100 WBC (Bld) 40.1 % 47-70 [facility] Work Phone: [phone] Potassium [Moles/Vol] 3.8 mmol/L 3.5-5.1 [facility] Work Phone: Protein [Mass/Vol] 7.3 g/dL 6.4-8.2 [facility] Work Phone: Sodium [Moles/Vol] 138 mmol/L 136-145 [facility] Work Phone: WBC (Bld) [#/Vol] 4.2 10*3/uL 4.4-11.0 [facility] Work Phone: Blood erythrocytes count (nu mber/volume)on 03-04-2022 RBC (Bld) [#/Vol] 4.38 10*6/uL 4.6-6.2 [facility] Work Phone: Blood hemoglobin measurement (mass/volume)on 03-04-2022 Hemoglobin (Bld) [Mass/Vol] 13.3 g/dL 13.0-16.5 [facility] Work Phone: Blood lymphocytes/100 leukoc yteson 03-04-2022 Lymphocytes/100 WBC (Bld) 45.2 % 19-41 [facility] Work Phone: Blood monocytes/100 leukocyt eson 03-04-2022 Monocytes/100 WBC (Bld) 13.0 % 0-10 [facility] Work Phone: Blood platelet mean volumeon 03-04-2022 Platelet mean volume (Bld) [Entitic vol] 9.9 fL 6.2-12.0 [facility] Work Phone: Determination of erythrocyte mean corpuscular volume (MCV)on 03-04-2022 MCV (RBC) [Entitic vol] 92.0 fL 80-94 [facility] Work Phone: Hematocrit Auto (Bld) [Volum e fraction]on 03-04-2022 Hematocrit (Bld) [Volume fraction] 40.3 % 40-54 [facility] Work Phone: Laboratory - Chemistry and C hemistry - challengeon 03-04-2022 ALP [Catalytic activity/Vol] 96 U/L 45-117 [facility] Work Phone: ALT [Catalytic activity/Vol] 18 U/L 16-61 [facility] Work Phone: CO2 [Moles/Vol] 28.0 mmol/L 21.0-32.0 [facility] Work Phone: Globulin (S) [Mass/Vol] 3.9 g/dL 2.2-4.2 [facility] Work Phone: Urea nitrogen/Creatinine [Mass ratio] 7.9 mg/mg 10-20 [facility] Work Phone: Laboratory - Hematology and Cell countson 03-04-2022 Erythrocyte distribution width (RBC) [Entitic vol] 42.7 fL 35.1-43.9 [facility] Work Phone: Erythrocyte distribution width (RBC) [Ratio] 12.8 % 11.6-14.6 [facility] Work Phone: Immature granulocytes/100 WBC (Bld) 0.200 % 0.0-0.9 [facility] Work Phone: Comment on above: IG% - Immature Granu locytes (promyelocytes, myelocytes and metamyelocytes) > 1% indicates that a LEFT SHIFT is Present. MCH (RBC) [Entitic mass] 30.4 pg 27.0-32.0 [facility] Work Phone: Nucleated RBC/100 WBC (Bld) [Ratio] 0 % 0-5 [facility] Work Phone: MCHC Auto (RBC) [Mass/Vol]on 03-04-2022 MCHC (RBC) [Mass/Vol] 33.0 g/dL 32-36 [facility] Work Phone: No Panel Informationon 03-04 Estimated GFR (MDRD) Amer 57 mL/min >60 [facility] Work Phone: Comment on above: GFR Calc Estimated GFR (MDRD) Non-Af Amer 47 mL/min >60 [facility] Work Phone: Comment on above: Non- GFR Calc Thyroid Stimulating Hormone (TSH) 2.06 uIU/mL 0.358-3.74 [facility] Work Phone: Vitamin D 25-Hydroxy 23.2 ng/mL [facility] Work Phone: Comment on above: Vitamin D 25(OH) Sta tus Range Deficiency <20 ng/mL (50nmol/L) Insufficiency 20 - 30 ng/mL (50 - 75 nmol/L) Sufficiency 30 - 100 ng/mL (75 - 250 nmol/L) Toxicity >100 ng/mL (>250 nmol/L) Platelets bldon 03-04-2022 Platelets (Bld) [#/Vol] 173 10*3/uL 150-450 [facility] Work Phone: Serum or plasma albumin donna urement (mass/volume)on 03-04-2022 Albumin [Mass/Vol] 3.4 g/dL 3.2-5.0 [facility] Work Phone: Serum or plasma albumin/glob ulin mass ratioon 03-04-2022 Albumin/Globulin [Mass ratio] 0.9 {ratio} 0.9-2.4 [facility] Work Phone: Serum or plasma calcium donna urement (mass/volume)on 03-04-2022 Calcium [Mass/Vol] 8.2 mg/dL 8.5-10.1 [facility] Work Phone: Serum or plasma creatinine m easurement (mass/volume)on 03-04-2022 Creatinine [Mass/Vol] 1.51 mg/dL 0.70-1.30 [facility] Work Phone: Comment on above: The validity of the calculated GFR & GFRAA in patients over 70 years has not been determined. Clinical correlation is essential. Serum or plasma urea nitroge n measurement (mass/volume)on 03-04-2022 Urea nitrogen [Mass/Vol] 12 mg/dL 7-18 [facility] Work Phone: Thin prep Papanicolaou smear with manual screeningon 03-04-2022 Thin prep Papanicolaou smear with manual screening 15 U/L 15-37 [facility] Work Phone: Thin prep Papanicolaou smear with manual screening 6 5-15 [facility] Work Phone: Absolute lymphocyte counton 01-08-2022 Lymphocytes Auto (Unsp spec) [#/Vol] 1.65 10*3/uL 0.83-4.51 [facility] Work Phone: Albumin Elph [Mass/Vol]on Albumin [Mass/Vol] 3.4 g/dL [facility] Work Phone: Basophil percentageon 2021 Basophils/100 WBC (Bld) 0.2 % 0-1 [facility] Work Phone: Bilirubin [Mass/Vol] 0.50 mg/dL 0.20-1.00 [facility] Work Phone: Comment on above: For patients on eltr ombopag therapy, use of [employer] [place] TBIL is not recommended. Chloride [Moles/Vol] 104 mmol/L 98-107 [facility] Work Phone: Eosinophils/100 WBC (Bld) 1.5 % 0-5 [facility] Work Phone: Glucose [Mass/Vol] 99 mg/dL 74-106 [facility] Work Phone: Neutrophils (Bld) [#/Vol] 2.4 10*3/uL 2.0-7.7 [facility] Work Phone: Neutrophils/100 WBC (Bld) 50.6 % 47-70 [facility] Work Phone: Potassium [Moles/Vol] 3.7 mmol/L 3.5-5.1 [facility] Work Phone: Protein [Mass/Vol] 7.7 g/dL 6.4-8.2 [facility] Work Phone: Sodium [Moles/Vol] 139 mmol/L 136-145 [facility] Work Phone: WBC (Bld) [#/Vol] 4.8 10*3/uL 4.4-11.0 [facility] Work Phone: Blood erythrocytes count (nu mber/volume)on 01-08-2022 RBC (Bld) [#/Vol] 4.60 10*6/uL 4.6-6.2 [facility] Work Phone: Blood hemoglobin measurement (mass/volume)on 01-08-2022 Hemoglobin (Bld) [Mass/Vol] 14.3 g/dL 13.0-16.5 [facility] Work Phone: Blood lymphocytes/100 leukoc yteson 01-08-2022 Lymphocytes/100 WBC (Bld) 34.2 % 19-41 [facility] Work Phone: Blood monocytes/100 leukocyt eson 01-08-2022 Monocytes/100 WBC (Bld) 13.3 % 0-10 [facility] Work Phone: Blood platelet mean volumeon 01-08-2022 Platelet mean volume (Bld) [Entitic vol] 10.1 fL 6.2-12.0 [facility] Work Phone: Determination of erythrocyte mean corpuscular volume (MCV)on 01-08-2022 MCV (RBC) [Entitic vol] 94.1 fL 80-94 [facility] Work Phone: [phone] Hematocrit Auto (Bld) [Volum e fraction]on 01-08-2022 Hematocrit (Bld) [Volume fraction] 43.3 % 40-54 [facility] Work Phone: Interpretation of serum or p lasma protein pattern by immunofixation (narrative resulton 01-08-2022 Protein Fractions Immunofixation Carlin [Interp] See comment [facility] Work Phone: Comment on above: Monoclonal IgG kappa = 0.5 g/dlMonoclonal IgG lambda = 0.2 g/dlDue to the small quantity of monoclonal IgM kappa, unable toquantitate the M-spike. Iron measurement (mass/mass) on 01-08-2022 Iron (Unsp spec) [Mass/Mass] 72 ug/dL 65-175 [facility] Work Phone: Laboratory - Chemistry and C hemistry - challengeon 01-08-2022 ALP [Catalytic activity/Vol] 103 U/L 45-117 [facility] Work Phone: ALT [Catalytic activity/Vol] 18 U/L 16-61 [facility] Work Phone: CO2 [Moles/Vol] 27.0 mmol/L 21.0-32.0 [facility] Work Phone: Urea nitrogen/Creatinine [Mass ratio] 13.0 mg/mg 10-20 [facility] Work Phone: Laboratory - Hematology and Cell countson 01-08-2022 Erythrocyte distribution width (RBC) [Entitic vol] 44.8 fL 35.1-43.9 [facility] Work Phone: Erythrocyte distribution width (RBC) [Ratio] 13.2 % 11.6-14.6 [facility] Work Phone: Immature granulocytes/100 WBC (Bld) 0.200 % 0.0-0.9 [facility] Work Phone: Comment on above: IG% - Immature Granu locytes (promyelocytes, myelocytes and metamyelocytes) > 1% indicates that a LEFT SHIFT is Present. MCH (RBC) [Entitic mass] 31.1 pg 27.0-32.0 [facility] Work Phone: Nucleated RBC/100 WBC (Bld) [Ratio] 0 % 0-5 [facility] Work Phone: MCHC Auto (RBC) [Mass/Vol]on 01-08-2022 MCHC (RBC) [Mass/Vol] 33.0 g/dL 32-36 [facility] Work Phone: No Panel Informationon 01-08 Addendum Document Comment [facility] Work Phone: Comment on above: Protein electrophore sis scan will follow via computer,mail, or magnetic prospecting supervisor delivery.Performed at: [address] [id number] Director: Alcides Alicea PhD, Phone: [phone] Estimated GFR (MDRD) Amer 72 mL/min >60 [facility] Comment on above: GFR Calc Estimated GFR (MDRD) Non-Af Amer 60 mL/min >60 [facility] Work Phone: Comment on above: Non- GFR Calc Total Iron Binding Capacity 294 ug/dL 250-450 [facility] Work Phone: 72 mL/min >60 [facility] Platelets bldon 01-08-2022 Platelets (Bld) [#/Vol] 176 10*3/uL 150-450 [facility] Work Phone: Serum zutob-9-[id number] measu rement by electrophoresison 01-08-2022 Alpha 1 globulin Elph [Mass/Vol] 0.2 g/dL [facility] Work Phone: Alpha 1 globulin Elph [Mass/Vol] 0.9 g/dL [facility] Work Phone: Serum globulin measurement ( mass/volume)on 01-08-2022 Globulin (S) [Mass/Vol] 3.6 g/dL [facility] Work Phone: Serum or plasma IgA measurem ent (mass/volume)on 01-08-2022 IgA [Mass/Vol] 486 mg/dL [facility] Work Phone: Serum or plasma IgG measurem ent (mass/volume)on 01-08-2022 IgG [Mass/Vol] 1393 mg/dL [facility] Work Phone: Serum or plasma IgM measurem ent (mass/volume)on 01-08-2022 IgM [Mass/Vol] 160 mg/dL [facility] Work Phone: Serum or plasma albumin donna urement (mass/volume)on 01-08-2022 Albumin [Mass/Vol] 3.3 g/dL 3.2-5.0 [facility] Work Phone: Serum or plasma albumin/glob ulin mass ratioon 01-08-2022 Albumin/Globulin [Mass ratio] 0.8 {ratio} 0.9-2.4 [facility] Work Phone: Serum or plasma beta globuli n measurement by electrophoresis (mass/volume)on 01-08-2022 Beta globulin Elph [Mass/Vol] 1.1 g/dL [facility] Work Phone: Serum or plasma calcium donna urement (mass/volume)on 01-08-2022 Calcium [Mass/Vol] 8.6 mg/dL 8.5-10.1 [facility] Work Phone: Serum or plasma creatinine m easurement (mass/volume)on 01-08-2022 Creatinine [Mass/Vol] 1.23 mg/dL 0.70-1.30 [facility] Work Phone: Comment on above: The validity of the calculated GFR & GFRAA in patients over 70 years has not been determined. Clinical correlation is essential. Serum or plasma ferritin yosef surement (mass/volume)on 01-08-2022 Ferritin [Mass/Vol] 37 ng/mL 26-388 [facility] Work Phone: Serum or plasma gamma globul in measurement by electrophoresis (mass/volume)on 01-08-2022 Gamma globulin Elph [Mass/Vol] 1.4 g/dL [facility] Work Phone: Serum or plasma immunoelectr ophoresis interpretation (nominal result)on 01-08-2022 Interpretation IEP [Interp] Comment [facility] Work Phone: Comment on above: Immunofixation shows IgG monoclonal protein with kappalight chain specificity.Please note that samples from patients receivingDARZALEX(R) (daratumumab) treatment can appear as an IgGkappa and mask a complete response. If this patient isreceiving CJ, this DAMARIS assay interference can be removedby ordering test number [id number], Daratumumab-Specific, Serum and submitting a new sample for testing orby calling the lab to add this test to the current sample.Immunofixation shows IgM monoclonal protein with kappalight chain specificity.Immunofixation shows IgG monoclonal protein with lambdalight chain specificity. Serum or plasma iron saturat ion measurement (mass fraction)on 01-08-2022 Iron saturation [Mass fraction] 24.5 % 15.0-55.0 [facility] Work Phone: Serum or plasma urea nitroge n measurement (mass/volume)on 01-08-2022 Urea nitrogen [Mass/Vol] 16 mg/dL 7-18 [facility] Work Phone: Thin prep Papanicolaou smear with manual screeningon 01-08-2022 Thin prep Papanicolaou smear with manual screening 19 U/L 15-37 [facility] Work Phone: Thin prep Papanicolaou smear with manual screening 8 5-15 [facility] Work Phone: Thin prep Papanicolaou smear with manual screening 1.0 [facility] Work Phone: Total protein bloodon 2021 Protein [Mass/Vol] 7.0 g/dL [facility] Work Phone: Basophil percentageon 2020 Basophil percentage 3.8 mg/dL 2.5-4.9 [facility] Work Phone: Chloride [Moles/Vol] 103 mmol/L 98-107 [facility] Work Phone: Glucose [Mass/Vol] 89 mg/dL 74-106 [facility] Work Phone: Comment on above: Please note revised GLUCOSE reference range effective 2017. Potassium [Moles/Vol] 3.6 mmol/L 3.5-5.1 [facility] Work Phone: Sodium [Moles/Vol] 140 mmol/L 136-145 [facility] Work Phone: Laboratory - Chemistry and C hemistry - challengeon 11-11-2021 CO2 [Moles/Vol] 30.0 mmol/L 21.0-32.0 [facility] Work Phone: Urea nitrogen/Creatinine [Mass ratio] 12.4 mg/mg 10- [facility] Work Phone: No Panel Informationon 11-11 Estimated GFR (MDRD) Amer 80 mL/min >60 [facility] Work Phone: Comment on above: GFR Calc Estimated GFR (MDRD) Non-Af Amer 66 mL/min >60 [facility] Work Phone: Comment on above: Non- GFR Calc Serum or plasma albumin donna urement (mass/volume)on 11-11-2021 Albumin [Mass/Vol] 3.5 g/dL 3.2-5.0 [facility] Work Phone: Serum or plasma calcium donna urement (mass/volume)on 11-11-2021 Calcium [Mass/Vol] 8.6 mg/dL 8.5-10.1 [facility] Work Phone: Serum or plasma creatinine m easurement (mass/volume)on 11-11-2021 Creatinine [Mass/Vol] 1.13 mg/dL 0.70-1.30 [facility] Work Phone: Comment on above: The validity of the calculated GFR & GFRAA in patients over 70 years has not been determined. Clinical correlation is essential. Serum or plasma urea nitroge n measurement (mass/volume)on 11-11-2021 Urea nitrogen [Mass/Vol] 14 mg/dL 7-18 [facility] Work Phone: Urine creatinine measurement (mass/volume)on 11-11-2021 Creatinine (U) [Mass/Vol] 98.20 mg/dL NO RANGE EST. [facility] Work Phone: Urine protein measurement (m ass/volume)on 11-11-2021 Protein (U) [Mass/Vol] 183.5 mg/dL 0.0-11.8 [facility] Work Phone: Urine protein/creatinine mas s ratioon 11-11-2021 Protein/Creatinine (U) [Mass ratio] 1869 mg/g CRE 0-200 [facility] Work Phone: [employer] mix RAST testo n 06-27-2021 LDH [Catalytic activity/Vol] 160 U/L 87-241 [facility] Laboratory - Chemistry and C hemistry - challengeon 06-27-2021 Cobalamin (Vitamin B12) [Mass/Vol] 802 pg/mL 211-911 [facility] Work Phone: No Panel Informationon 06-27 Free Lambda Light Chains, Quant 31.9 mg/L High 5.7-26.3 [facility] 31.9 mg/L High 5.7-26.3 [facility] Serum immunoglobulin kappa l ight chains/immunoglobulin lambda light chains mass ratioon 06-27-2021 Immunoglobulin light chains.kappa/Immunoglobul in light chains.lambda (S) [Mass ratio] 2.82 High 0.26-1.65 [facility] Comment on above: Performed at: [address] [id number] Director: Alcides Alicea PhD, Phone: [phone] Serum or plasma immunoglobul in kappa light chains measurement (mass/volume)on 06-27-2021 Immunoglobulin light chains.kappa [Mass/Vol] 89.9 mg/L High 3.3-19.4 [facility] Thin prep Papanicolaou smear with manual screeningon 06-27-2021 Thin prep Papanicolaou smear with manual screening 160 U/L 87-241 [facility] Work Phone: CNOVon 09-19-2019 CNOV Office Visit (AGVASACC) ELIAS SHAH ([id number]) 1940 M Date Time Provider Department 09/19/19 2:00 PM HIGINIO BACON) JAZMYNE During your visit today, we recorded the following information about you: Pulse Respiration Blood pressure Weight 48/minute 16/minute 128/70 88 kg Height 1.829 m Higinio Bacon APRN.KEE OTERO 09/19/2019 3:22 PM Signed HPI: Elias Shah [...] Encephalopathy, He Was Discharged on 07/13/2019 to [facility]. He Continued to Have Ongoing Problems with Bradycardia, Tachycardia, Atrial Fibrillation. On July 27 He Was Diagnosed with Pneumonia and Treated with IV Vancomycin and Cefepime. Additionally, in follow-up he had melena with acute blood loss anemia and was readmitted to [facility]. He was discharged on August 26, 2019 To [facility] facility. Was finally discharged back home last [...] mm [facility] Cristhian Trifecta pericardial prosthesis at [facility] by Dr. Rivers - S/P AVR (aortic valve replacement) 07/09/2019 - S/P CABG x 2 07/04/[address] [facility] [address] Rivers - Vitamin D deficiency PAST SURGICAL HISTORY Procedure Laterality Date - ATRIAL APPENDAGE LIGATION 07/04/2019 35 mm AtriCure clip at [facility] by Dr. Rivers - CABG (2) VEIN GRAFTS AND ARTERIAL GRAFT(S 07/04/[address] [facility] [address] Rivers - REPAIR UMBILICAL HERNIA 12/04/2018 after bowel perforation done at [facility] Dr. Young - REPLAC AORT VALV PROSTH VALV 07/04/[address] Cristhian Trifecta pericardial prosthesis at [facility] by Dr. Rivers FAMILY HISTORY Problem [...] on. he should follow up with his artificial foliage arranger and PCP as scheduled, and only needs to be seen here on a as needed basis. Thanks. Electronically signed by Higinio Bacon APRN.CNP on September 19, 2019, 2:33 PM Higinio Bacon APRN.CNP, CNP 09/19/2019 3:04 PM Addendum - You may drive! - Please begin cardiac rehab. If they have not contacted you, please call them: Please see Dr Ann for clearance to begin cardiac rehab [facility] Cardiac Rehabilitation Hours: Thursday, Thursday, Thursday: 8:00 am to 4:30 pm Thursday and : 6:00 am to 2:00 pm The cardiac rehabilitation department is located on the first floor of the hospital, near the [facility]. For more information, call . - Weight bearing restriction remains: No lifting more than 10 lbs. You may begin to gradually increase the amount of weight bearing. Cardiac rehab will help with this. - Please see your artificial foliage arranger regularly. They will take over medication management. - Please feel free to call us if you have any post-operative concerns. Thank you for coming to see me today!! 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. For more information, call . - Weight bearing restriction remains: No lifting more than 10 lbs. You may begin to gradually increase the amount of weight bearing. Cardiac rehab will help with this. - Please see your artificial foliage arranger regularly. They will take over medication management. - Please feel free to call us if you have any post-operative concerns. Thank you for coming to see me today!! Higinio Bacon APRN.MAGAZINE PUBLISHER Prescriptions ordered this encounter Disp Refills Start [...] is not on file. Encounter Status:Closed by HIGINIO BACON CNP on 09/19/19 Normal [facility] PROGRESSon 09-19-2019 PROGRESS HNO ID: [id number] Author: Higinio Medina) KEE Bacon Service: ? Author Type: [...] Encephalopathy, He Was Discharged on 07/13/2019 to [facility]. He Continued to Have Ongoing Problems with Bradycardia, Tachycardia, Atrial Fibrillation. On July 27 He Was Diagnosed with Pneumonia and Treated with IV Vancomycin and Cefepime. Additionally, in follow-up he had melena with acute blood loss anemia and was readmitted to [facility]. He was discharged on August 26, 2019 To [facility] facility. Was finally discharged back home last [...] mm St. Cristhian Trifecta pericardial prosthesis at [facility] by Dr. Rivers - S/P AVR (aortic valve replacement) 07/09/2019 - S/P CABG x 2 07/04/[address] [facility] [address] Rivers - Vitamin D deficiency PAST SURGICAL HISTORY Procedure Laterality Date - ATRIAL APPENDAGE LIGATION 07/04/2019 35 mm AtriCure clip at [facility] by Dr. Rivers - CABG (2) VEIN GRAFTS AND ARTERIAL GRAFT(S 07/04/[address] [facility] [address] Rivers - REPAIR UMBILICAL HERNIA 12/04/2018 after bowel perforation done at [facility] Dr. Young - REPLAC AORT VALV PROSTH VALV 07/04/[address] Cristhian Trifecta pericardial prosthesis at [facility] by Dr. Rivers FAMILY HISTORY Problem [...] advised to change by Dr. Primo Bacon APRN.MAGAZINE PUBLISHER In summary, Patient is doing quite well overall after his combined CABG aVR surgery, with no major complaints. Patient is released to drive, work. Patient should start cardiac rehab from this point on. he should follow up with his artificial foliage arranger and PCP as scheduled, and only needs to be seen here on a as needed basis. Thanks. Electronically signed by Higinio Bacon APRN.CNP on September 19, 2019, 2:33 PM [facility] CASE MANAGEMon 08-26-2019 CASE MANAGEM HNO ID: [id number] Author: Serene Amaya Service: Care Management Author Type: ? Type: Care Mgt Progress Note Filed: 08/29/2019 4:04 PM Note Text: CARE MANAGEMENT PROGRESS NOTE SERVICE DATE: 08/29/2019 SERVICE TIME: 1200 LOS: 6 days IM letter given to patient on 08/26/2019. SIGNATURE: Janee Amaya PATIENT NAME: Elias Shah DATE: August 29, 2019 TIME: 12:17 PM PAGER/CONTACT #: [phone] [facility] CASE MANAGEM HNO ID: [id number] Author: Barbara (Rn) Jude, RN Service: Care Management Author Type: Registered Nurse Type: Care Mgt Progress Note Filed: 08/26/2019 3:07 PM Note Text: CARE MANAGEMENT DISCHARGE NOTE SERVICE DATE: 08/26/2019 SERVICE TIME: 3:05 PM LOS: 6 days Admission Date: 08/20/2019 DISCHARGE ARRANGEMENT (list agency and phone number) [facility] facility: Was an expedited discharge program used? [...] COMMUNICATION: . TRANSPORTATION ARRANGEMENTS: Mode of Transportation: [employer] Agency and Phone #: [facility] ( [facility] ) [phone] / [phone]. Date of Trip: 08/26/2019 Type of Service: Wheelchair Is Patient Medicaid Pending: No Discussion of financial coverage occurred with Patient and Family . Manager Distribution Center Location: [address] [place] [address] Destination: SNF Financial Care Management Responsibility: None Estimated Charge: na Approving Systems Architecture Analyst: lucia ADDITIONAL CONTACT RESOURCES: . Pt is D/C to SNF today. W/C transport at 4:30 PM, Patient and RN aware. TCVM to Amalia mccormack. SIGNATURE: Barbara Roque RN PATIENT NAME: Elias Shah DATE: August 26, 2019 TIME: 3:05 PM PAGER/CONTACT #: [phone] [facility] NURSING PROGon 08-26-2019 NURSING PROG HNO ID: [id number] Author: Yenifer GusmanRn) AGUSTO Tamayo Service: ? Author Type: Registered Nurse Type: Nursing Progress Note Filed: 08/26/2019 4:15 PM Note Text: Report called to Emiliano at [facility] at [phone]. [facility] NURSING PROG HNO ID: [id number] Author: Yenifer Tamayo RN Service: ? Author Type: Registered Nurse Type: Nursing Progress Note Filed: 08/26/2019 9:04 AM Note Text: Dr Peñaloza notified of pt's blood pressure and heart rate, potassium level. Ordered to hold Metoprolol and he will order Hydralazine. also notified of pt's c/o nausea and headache. PRN Zofran given. [facility] NURSING PROG HNO ID: [id number] Author: Rica Garcia RN Service: ? Author Type: Registered Nurse Type: Nursing Progress Note Filed: 08/26/2019 5:53 AM Note Text: Nursing Progress Note Patient Name: Elias Shah Patient Location: [id number]/[facility]- [id number] Daily Note: 0525: Paged sound at #[phone] regarding pt BP of 169/70 and HR 54, pt asymptomatic. 0546: Talked to Dr. Keane, orders to give Losartan early. This note was completed by: Rica Garcia RN [facility] PLAN OF CAREon 08-26-2019 PLAN OF CARE HNO ID: [id number] Author: Craig Duron (Pharmacist) Service: Pharmacy Author Type: Pharmacist Type: [...] Discharge Medication List. Patient discharged today to [facility] CRAIG DURON PHARMACIST August 26, 2019 3:27 PM Pager: 08/26/2019 [...] HYDROcodone-acetamino phen 5-325 mg per tablet Normal [facility] PROGRESSon 08-26-2019 PROGRESS HNO ID: [id number] Author: Janee Mccauley Service: General Surgery Author [...] kg/m? O2 Therapy: Room Air IANDO: Date 08/25/19 0700 - 08/26/1961 08/26/19 07 - 08/27/19 0659 Shift 1842-3051 5073-2228 7159-6824 24 Hour Total 6570-3531 1937-7451 5811-6962 24 Hour Total INTAKE PO 1080 813 380 6738 PO 1080 477 161 8059 Shift Total 1080 724 910 2153 OUTPUT Urine 100 100 Void (ml) 100 [...] INTRAVENOUS q 12 H Labs: Recent Labs 08/26/1951808/25/19 0742 08/25/19 0245 NA 142 -- 141 [...] mm [facility]. Cristhian Trifecta pericardial prosthesis at [facility] by Dr. Rivers - Essential hypertension 02/11/2019 - Hyperlipidemia 02/01/2019 79 year old male with PMH HTN, HLD, atrial fibrillation, incarcerated umbilical hernia s/p SBR and hernia repair 11/[address] Felton at [facility], CAD and now s/p 2 vessel CABG [...] with attending: Dr Farris SIGNATURE: Janee Mccauley APRN.MEDIA CLERK PATIENT NAME: Elias Shah DATE: August 26, 2019 TIME: 6:17 AM Emergency General Surgery Service Pager: For questions or concerns Thu-Thu 6a-5p please page [phone]. After 5pm and on Weekends and Holidays, please page [phone]. [facility] THERAPY NTon 08-26-2019 THERAPY NT HNO ID: [id number] Author: Aminata Cervantes/Carleen Durand Service: Occupational Therapy Author Type: Occupational Therapist Type: Therapy (PT/OT/Speech/Resp) Filed: 08/26/2019 12:01 PM Note Text: OCCUPATIONAL THERAPY MISSED VISIT SERVICE DATE: 08/26/2019 SERVICE TIME: 1147 to 1147 ROOM: [place] [address] Attempted Treatment. Patient not seen due to Declined. Patient reports he has been nauseas all day and does not want to do therapy at this time. Will follow up as able. SIGNATURE: ERIC Mcclain/Carroll PATIENT NAME: Elias Shah DATE: August 26, 2019 TIME: 12:01 PM Normal [facility] CONSULTon 08-25-2019 CONSULT HNO ID: [id number] Author: Lisette Murillo Service: General Surgery Author Type: Resident Type: Consults Filed: 08/25/2019 4:06 PM Note Text: Attestation signed by Jerilyn Farris at 08/26/2019 4:23 PM ==== SURGERY STAFF: I discussed the management of this case with the surgical rn and agree with the plan of care [...] mm St. Cristhian Trifecta pericardial prosthesis at [facility] by Dr. Rivers - S/P AVR (aortic valve replacement) 07/09/2019 - S/P CABG x 2 07/04/2019 at [facility] [address] Rivers - Vitamin D deficiency PAST SURGICAL HISTORY Procedure Laterality Date - ATRIAL APPENDAGE LIGATION 07/04/2019 35 mm AtriCure clip at [facility] by Dr. Rivers - CABG (2) VEIN GRAFTS AND ARTERIAL GRAFT(S 07/04/2019 at [facility] [address]. Rivers - REPAIR UMBILICAL HERNIA 12/04/2018 after bowel perforation done at [facility] Dr. Young - REPLAC AORT VALV PROSTH VALV 07/04/[address] Cristhian Trifecta pericardial prosthesis at [facility] by Dr. Rivers FAMILY HISTORY Problem [...] mouth once daily. Disp: Rfl: 08/19/2019 at 1999 oxyCODONE ir (OXYIR) 5 mg capsule Take [...] described above. 4. Otherwise no acute disease. 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: [employer] Transcribe Date/Time: Aug 23 2019 4:28P Dictated by : PEGGY TEJEDA MD This examination was interpreted and the report reviewed and electronically signed by: PEGGY TEJEDA MD on Aug 23 2019 4:31PM EST Impression/Recommenda tions Patient is an 79 yo male with PMH HTN, HLD, atrial fibrillation, incarcerated umbilical hernia s/p SBR and hernia repair 11/[address] Felton at [facility], [facility] and now s/p 2 vessel CABG and [...] 2019 TIME: 3:48 PM PAGER/CONTACT #: [phone] [facility] CONSULT PROGon 08-25-2019 CONSULT PROG HNO ID: [id number] Author: Zacarias Miles Service: Gastroenterology Author Type: [...] iron supplement for about a week, call [phone] to schedule appointment [address] Dr. Peter). ? GI will sign off call with questions SIGNATURE: Zacarias Miles APRN.CNP PATIENT NAME: Elias Shah DATE: August 25, 2019 TIME: 2:46 PM NUMBER: [phone] [facility] NURSING PROGon 08-25-2019 NURSING PROG HNO ID: [id number] Author: Yenifer (Rn) AGUSTO Tamayo Service: ? Author Type: Registered Nurse Type: Nursing Progress Note Filed: 08/25/2019 9:25 AM Note Text: Dr Peñaloza notified of pt's c/o painful rash on forehead and raised, reddened cyst-like area to right breast. He will address. Normal [facility] NURSING PROG HNO ID: [id number] Author: Fernanda GusmanRn) AGUSTO Diaz Service: ? Author Type: Registered Nurse Type: Nursing Progress Note Filed: 08/25/2019 3:45 AM Note Text: Nursing Progress Note Patient Name: Elias Shah Patient Location: [id number]/[facility]- [id number] Daily Note: 0255: RN paged Sound at #[phone] regarding pt's BP of 170/72. Pt asymptomatic. No new orders at this time. RN will continue to monitor. This note was completed by: Fernanda Diaz RN [facility] NUTRITIONon 08-25-2019 NUTRITION HNO ID: [id number] Author: Sydnee Moses) ESTELA Fisher Service: Nutrition Therapy Author Type: Registered Dietitian [...] units SIGNATURE: WILLIAM Belcher PATIENT NAME: Elias Sahh DATE: August 25, 2019 TIME: 8:09 AM PAGER: [phone] Normal [facility] PROCEDUREon 08-25-2019 PROCEDURE HNO ID: [id number] Author: Lisette Murillo Service: General Surgery Author Type: Resident Type: Procedures Filed: 08/25/2019 5:56 PM Note Text: Attestation signed by Jerilyn Farris at 08/26/2019 4:23 PM Jerilyn Farris MD August 26, 2019 BEDSIDE PROCEDURE NOTE PROCEDURE DATE: August 25, 2019 PROCEDURE START TIME: 4:50 pm PRIMARY PROCEDURALIST: Lisette Murillo MD LINE PATROLLER(S): Ryne INFORMED CONSENT: Informed Consent obtained and on [...] 2019 TIME: 5:53 PM PAGER/CONTACT #: [phone] [facility] PROGRESSon 08-25-2019 PROGRESS HNO ID: [id number] Author: Ben Peñaloza Service: Hospital Medicine Author [...] -- 08/24/19 0945 activity - mobilize patient (nv,oh) 08/20/19 1615 vte pharmacologic prophylaxis contraindicated (nv,oh) 08/20/19 1615 pneumatic compression stockings (nv,md) VTE Prophylaxis: VTE prophylaxis appropriate SIGNATURE: Ben Peñaloza MD PATIENT NAME: Elias Shah DATE: 08/25/2019 TIME: 3:07 PM PAGER: [phone] [facility] PROGRESS HNO ID: [id number] Author: Craig Duron (Pharmacist) Service: Pharmacy Author Type: Pharmacist Type: [...] this patient. Signature: JESUS ALBERTO PEREZ Pager/Extension: [phone] [facility] THERAPY NTon 08-25-2019 THERAPY NT HNO ID: [id number] Author: Nohemi GusmanPt) Shefali Service: Physical Therapy Author Type: Physical Therapist Type: Therapy (PT/OT/Speech/Resp) Filed: 08/25/2019 1:57 PM Note Text: Physical Therapy Treatment SERVICE DATE: 08/25/2019 SERVICE TIME: 1055 to 1118 ROOM: [place] [address] Recommended Discharge Disposition: Subacute/SNF Justification For Post [...] gait and mobility-other Interventions Provided: Gait Training (77412);Therapeutic Activity (26740) Therapeutic Activity (14603) Treatment Minutes: 15 1 unit Skilled Intervention(s): [...] marching, ) x 10-15 reps. Gait Training (21231) Treatment Minutes: 8 1 unit Skilled Intervention(s): [...] Suzan decreased;Step length decreased;Non-functio [facility] Walk 25 feet or more Please [...] visit. SIGNATURE: Nohemi Meehan PT DATE: August 25, 2019 TIME: 1:57 PM [facility] CASE MANAGEMon 08-24-2019 CASE MANAGEM HNO ID: [id number] Author: Barbara (Rn) AGUSTO Roque Service: Care Management Author Type: Registered Nurse Type: Care Mgt Progress Note Filed: 08/24/2019 3:52 PM Note Text: CARE MANAGEMENT PROGRESS NOTE SERVICE DATE: 08/24/2019 SERVICE TIME: 3:42 PM LOS: 4 days Needs Prior to Discharge: Discharge Transportation [facility] has accepted pt and he is ready to D/C when medically stable. Will need W/C transport. ADDENDUM: Notified pt's sisterAmalia of D/C plan. SIGNATURE: Barbara Roque RN PATIENT NAME: Elias Grantdes DATE: August 24, 2019 TIME: 3:42 PM PAGER/CONTACT #: [phone] [facility] CASE MANAGEM HNO ID: [id number] Author: Barbara Roque RN Service: Care Management Author Type: Registered Nurse Type: Care Mgt Progress Note Filed: 08/24/2019 1:01 PM Note Text: CARE MANAGEMENT PROGRESS NOTE SERVICE DATE: 08/24/2019 SERVICE TIME: 12:59 PM LOS: 4 days FREEDOM OF CHOICE GIVEN: Yes Pt does not think he can do 3 hrs of intensive therapy at Rehab. Preference: Would like to go to [facility]. [place]. Referral placed. SIGNATURE: Barbara Roque RN PATIENT NAME: Elias Shah DATE: August 24, 2019 TIME: 12:58 PM PAGER/CONTACT #: [phone] [facility] CASE MANAGEM HNO ID: [id number] Author: Barbara Roque RN Service: Care Management Author Type: Registered Nurse Type: Care Mgt Progress Note Filed: 08/24/2019 12:58 PM Note Text: CARE MANAGEMENT PROGRESS NOTE SERVICE DATE: 08/24/2019 SERVICE TIME: 10:34 AM LOS: 4 days FREEDOM OF CHOICE GIVEN: Yes Met with pt, PT/OT rec Acute Rehab. Pt is from [place] and wants to stay in the area Preference: [place] [facility] Referral placed. Pt would like CM to let his sister, Amalia know and she will be hame after 1 PM today. Pt will need transport at D/C, as sister does not drive long distance nor on the freeway. SIGNATURE: Barbara Roque RN PATIENT NAME: Elias Farshad Shah DATE: August 24, 2019 TIME: 10:34 AM PAGER/CONTACT #: [phone] Normal [facility] CONSULT PROGon 08-24-2019 CONSULT PROG HNO ID: [id number] Author: Zacarias Miles Service: Gastroenterology Author Type: [...] for about a week). SIGNATURE: Zacarias Miles APRN.CNP PATIENT NAME: Elias Shah DATE: August 24, 2019 TIME: 2:10 PM NUMBER: [phone] [facility] PROGRESSon 08-24-2019 PROGRESS HNO ID: [id number] Author: Ben Peñaloza Service: Hospital Medicine Author [...] -- 08/24/19 0945 activity - mobilize patient (nv,oh) 08/20/19 1615 vte pharmacologic prophylaxis contraindicated (nv,md) 08/20/19 1615 pneumatic compression stockings (nv,md) VTE Prophylaxis: VTE prophylaxis appropriate SIGNATURE: Ben Peñaloza MD PATIENT NAME: Elias Shah DATE: 08/24/2019 TIME: 3:39 PM PAGER: [phone] Normal [facility] THERAPY NTon 08-24-2019 THERAPY NT HNO ID: [id number] Author: Chloe (Otr/L) Lb Service: Occupational Therapy Author Type: Occupational Therapist Type: Therapy (PT/OT/Speech/Resp) Filed: 08/24/2019 11:16 AM Note Text: Occupational Therapy Evaluation SERVICE DATE: 08/24/2019 SERVICE TIME: 0955 to 1023 ROOM: [place] [address] Recommended Discharge Disposition: Acute Rehab Recommended Discharge [...] Cognitive Functions and Awareness Interventions Provided: Evaluation;Self Assisted Management (57043) $ Evaluation-Moderate (10869) Billed Units: 1 unit OT Evaluation Moderate [...] valve replacement, h/o encephalopathy, anemia, HTN. Self Assisted Management (09532) Treatment Minutes: 13 1 unit Skilled Intervention(s): [...] mm St. Cristhian Trifecta pericardial prosthesis at [facility] by Dr. Rivers - Essential hypertension [...] ERIC Bales/L PATIENT NAME: Elias Shah DATE: August 24, 2019 TIME: 10:46 AM Normal [facility] THERAPY NT HNO ID: [id number] Author: Nohemi (Pt) Shefali Service: Physical Therapy Author Type: Physical Therapist Type: Therapy (PT/OT/Speech/Resp) Filed: 08/24/2019 4:03 PM Note Text: Physical Therapy Evaluation SERVICE DATE: 08/24/2019 SERVICE TIME: 0830 to 0855 ROOM: [place] [address] Recommended Discharge Disposition: Acute Rehab Justification For [...] and mobility-other Interventions Provided: Evaluation;Therapeuti c Activity (70026) $ Evaluation-Moderate (95755) Billed Units: 1 unit History and examination of body systems see assessment section above. This patient?s clinical presentation is evolving. The patient required a moderate complexity evaluation. Therapeutic Activity (76522) Treatment Minutes: 9 1 unit Skilled Intervention(s): [...] DATE: August 24, 2019 TIME: 4:01 PM Normal [facility] ANES Namita 08-23-2019 ANES POST HNO ID: [id number] Author: Alli Lamb Service: Anesthesiology Author Type: Physician Type: Anesthesia PostOp Filed: 08/23/2019 12:36 PM Note Text: POST ANESTHESIA EVALUATION NOTE SERVICE DATE: 08/23/2019 SERVICE TIME: 1236 : 1938 Vitals: 08/22/19202308/23/19 0255 08/23/19 0808/23/19 1021 Temp: 36.7 ?C (98.1 ?F) 37 [...] 2019 TIME: 12:36 PM PAGER/CONTACT #: Kati [facility] ANES PREOPon 08-23-2019 ANES PREOP HNO ID: [id number] Author: Alli Lamb Service: Anesthesiology Author Type: [...] 2 Acute Encephalopathy Coronary Artery Disease of [place] Artery of [place] Heart With Stable Angina Pectoris (Hcc) S/P [...] mm St. Cristhian Trifecta pericardial prosthesis at [facility] by Dr. Rivers - S/P AVR (aortic valve replacement) 07/09/2019 - S/P CABG x 2 07/04/[address] [facility] [address] Rivers - Vitamin D deficiency PAST SURGICAL HISTORY Procedure Laterality Date - ATRIAL APPENDAGE LIGATION 07/04/2019 35 mm AtriCure clip at [facility] by Dr. Rivers - CABG (2) VEIN GRAFTS AND ARTERIAL GRAFT(S 07/04/[address] [facility] [address] Rivers - REPAIR UMBILICAL HERNIA 12/04/2018 after bowel perforation done at [facility] Dr. Young - REPLAC AORT VALV PROSTH VALV 07/04/[address] Cristhian Trifecta pericardial prosthesis at [facility] by Dr. Rivers FAMILY HISTORY Problem [...] AT BEDTIME Aijaz Brittani 40 mg at 08/22/192141 - [MAR Hold due to Transfer] losartan 50 mg tab(s) (COZAAR) 50 mg ORAL BID Aijaz Brittani 50 mg at 08/23/19 0816 - [MAR Hold due to Transfer] metoprolol tartrate (short acting) 25 mg tab(s) (LOPRESSOR) 25 mg ORAL BID Aijaz Brittani 25 mg at 08/22/192141 - [MAR Hold due to Transfer] tamsulosin ER 0.4 mg cap(s) (FLOMAX) 0.4 mg ORAL DAILY Aijaz Brittani 0.4 mg at 08/22/19 1631 - [MAR Hold due to Transfer] NaCl 0.9% 3-5 mL 3-5 mL INTRAVENOUS q 12 H Aijaz Brittani 3 mL at 10/01/19 0817 - [MAR Hold due to Transfer] NaCl 0.9% 2-10 mL 2-10 mL INTRAVENOUS q 12 H Aijaz Brittani 10 mL at 08/23/19816 - [MAR Hold due to Transfer] pantoprazole [...] August 23, 2019 TIME: 11:36 AM CSN: [id number] [facility] CASE MGT INIT DEVAN 2018 CASE MGT INIT DEVAN HNO ID: [id number] Author: Barbara (Rn) AGUSTO Roque Service: Care [...] Current Advance Directive: Health Care Power of Technician Support Engineer In Chart: No Office Nurse Attempted to Assist with AD Completion: Yes [...] Walker Has the Patient Been in a Senior Care Facility in the Past 30 days? Unknown SOCIAL: Living Arrangement: Home Lives With: sisterAmalia Financial Resources: Retired Primary Contact: Extended Emergency Contact Information Primary Emergency Contact: Amalia Zamora [place] Relation: Sister Supportive: Yes Other Important Patient [...] 0 I feel financially burdened by my [id number] expenses for my prescription medication: Disagree completely [...] agency is that is coming. TC to Amalia mccormack POTENTIAL TRANSITION PLANS Home Home Care Pt is from home where he lives with his sisterAmalia. 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 +PCP, +RX, +DME. TCVM to Amalia tipton trying to determine the home care agency that follows pt. Pt does not know. Following. SIGNATURE: Barbara Roque RN PATIENT NAME: Elias Shah DATE: August 23, 2019 TIME: 4:20 PM PAGER/CONTACT #: [phone] [facility] OPERATIVE NOon 08-23-2019 OPERATIVE NO HNO ID: [id number] Author: Zora Peter Service: Gastroenterology Author Type: Physician Type: Operative Report Filed: 08/23/2019 12:03 PM Note Text: OPERATIVE/PROCEDURE REPORT LOG ID: [id number] Surgery/Procedure Date: 08/23/2019 Incision/Procedure Start Time: 11:43 AM Incision Close/Procedure End Time: 11:58 AM Surgeon(s)/Procedural ist(s) and Die Tripper(s): Surgeon(s) and Role: * Zora Peter - [...] 23, 2019 TIME: 12:00 PM PAGER/CONTACT #: [phone] [facility] OPERATIVE NO HNO ID: [id number] Author: Zora Peter Service: Gastroenterology Author Type: Physician Type: Operative Report Filed: 08/23/2019 12:02 PM Note Text: OPERATIVE/PROCEDURE REPORT LOG ID: [id number] Surgery/Procedure Date: 08/23/2019 Incision/Procedure Start Time: 11:43 AM Incision Close/Procedure End Time: 11:58 AM Surgeon(s)/Procedural ist(s) and Die Tripper(s): Surgeon(s) and Role: * Zora Peter - [...] 23, 2019 TIME: 12:00 PM PAGER/CONTACT #: [phone] [facility] PROGRESSon 08-23-2019 PROGRESS HNO ID: [id number] Author: Roger Castillo Service: Hospital Medicine Author Type: Physician Type: Progress Notes Filed: 08/23/2019 3:44 PM Note Text: DEPARTMENT OF HOSPITAL MEDICINE PROGRESS NOTE SERVICE DATE: 08/23/2019 SERVICE TIME: 3:37 PM Hospital Medicine/Primary Attending: Roger Castillo MD NIGHT AND WEEKEND COVERAGE: After 7pm please page [phone] CHIEF COMPLAINT: Shortness of breath SUBJECTIVE: Patient [...] of care discussed with: Patient SIGNATURE: Roger Castillo MD PATIENT NAME: Elias Shah DATE: August 23, 2019 TIME: 3:37 PM PAGER/CONTACT #: [phone] [facility] PT EDon 08-23-2019 PT ED HNO ID: [id number] Author: Nichole GusmanRnSachin Boo RN Service: Nursing Author Type: Registered [...] Signed By: Nichole Boo RN In Department: [facility] PT ED HNO ID: [id number] Author: Ina Ryan RN Service: Nursing Author Type: Registered Nurse Type: Patient Education Filed: 08/23/2019 10:19 AM Note Text: PRE OP LEARNING ASSESSMENT PROCEDURE/SURGERY: GI PROCEDURES: Colonoscopy READINESS TO LEARN COGNITIVE ABILITY: Alert and oriented MOTIVATION TO LEARN: Interested FAMILY SUPPORT: None - Unavailable/disintere sted PATIENT LEARNS BEST BY: Individual Instruction FACTORS AFFECTING LEARNING: None PHYSICAL LIMITATIONS AFFECTING LEARNING: None Electronically Signed By: Ina Rompf, RN In Department: [place] ENDO [facility] ANES Namita 08-22-2019 ANES POST HNO ID: [id number] Author: Marlon Womack Service: Anesthesiology Author Type: [...] 22, 2019 TIME: 4:49 PM PAGER/CONTACT #: [facility] ANES PREOPon 08-22-2019 ANES PREOP HNO ID: [id number] Author: Marlon Womack Service: Anesthesiology Author Type: [...] 2 Acute Encephalopathy Coronary Artery Disease of [place] Artery of [place] Heart With Stable Angina Pectoris (Hcc) S/P [...] mm St. Cristhian Trifecta pericardial prosthesis at [facility] by Dr. Rivers - S/P AVR (aortic valve replacement) 07/09/2019 - S/P CABG x 2 07/04/2019 [address] [facility] [address] Rivers - Vitamin D deficiency PAST SURGICAL HISTORY Procedure Laterality Date - ATRIAL APPENDAGE LIGATION 07/04/2019 35 mm AtriCure clip at [facility] by Dr. Rivers - CABG (2) VEIN GRAFTS AND ARTERIAL GRAFT(S 07/04/2019 [address] [facility] [address] Rivers - REPAIR UMBILICAL HERNIA 12/04/2018 after bowel perforation done at [facility] Dr. Young - REPLAC AORT VALV PROSTH VALV 07/04/[address] Cristhian Trifecta pericardial prosthesis at [facility] by Dr. Rivers FAMILY HISTORY Problem [...] mg INTRAVENOUS q 4 H PRN Roger Castillo 4 mg at 08/21/19 0937 - [MAR Hold due to Transfer] HYDROcodone 5 mg - acetaminophen 325 mg tablet (NORCO) 1 tablet ORAL q 4 H PRN Roger Castillo 1 tablet at 08/21/19 2018 - [MAR Hold due to Transfer] acetaminophen 650 mg tab(s) (TYLENOL) 650 mg ORAL q 4 H PRN Dunia Crawford 650 mg at 08/21/19 0113 - [MAR Hold due to Transfer] atorvastatin 40 mg tab(s) (LIPITOR) 40 mg ORAL AT BEDTIME Dunia Ty 40 mg at 08/21/192003 - [MAR Hold due to Transfer] losartan 50 mg tab(s) (COZAAR) 50 mg ORAL BID Dunia Ty 50 mg at 08/22/19 0840 - [MAR Hold due to Transfer] metoprolol tartrate (short acting) 25 mg tab(s) (LOPRESSOR) 25 mg ORAL BID Dunia Ty 25 mg at 08/21/192003 - [MAR Hold due to Transfer] tamsulosin ER 0.4 mg cap(s) (FLOMAX) 0.4 mg ORAL DAILY Dunia [place] 0.4 mg at 08/21/19 0953 - [MAR Hold due to Transfer] NaCl 0.9% 3-5 mL 3-5 mL INTRAVENOUS q 12 H Dunia Ty 3 mL at 08/22/19 0840 - [MAR Hold due to Transfer] NaCl 0.9% 2-10 mL 2-10 mL INTRAVENOUS q 12 H Dunia [place] 10 mL at 08/22/19 0900 - [MAR Hold due to Transfer] pantoprazole 40 mg injection (PROTONIX) 40 mg INTRAVENOUS q 12 H Dunia [place] 40 mg at 08/22/19 0843 Followed by [...] August 22, 2019 TIME: 12:40 PM CSN: [id number] [facility] CASE MANAGEMon 08-22-2019 CASE MANAGEM HNO ID: [id number] Author: Barbara Roque RN Service: Care Management Author Type: Registered Nurse Type: Care Mgt Progress Note Filed: 08/22/2019 2:29 PM Note Text: CARE MANAGEMENT PROGRESS NOTE SERVICE DATE: 08/22/2019 SERVICE TIME: 2:29 PM LOS: 2 days Attempted to meet with pt for initial assessment, he is in Endo for procedure. Will F/U SIGNATURE: Barbara Roque RN PATIENT NAME: Elias Grantdes DATE: August 22, 2019 TIME: 2:29 PM PAGER/CONTACT #: [phone] [facility] CASE MANAGEM HNO ID: [id number] Author: Serene Amaya Service: Care Management Author Type: ? Type: Care Mgt Progress Note Filed: 08/22/2019 11:08 AM Note Text: CARE MANAGEMENT PROGRESS NOTE SERVICE DATE: 08/22/2019 SERVICE TIME: 1015 LOS: 2 days IM letter given to patient on [id number]. SIGNATURE: Serene Amaya PATIENT NAME: Elias Shah DATE: August 22, 2019 TIME: 11:07 AM PAGER/CONTACT #: [phone] [facility] NURSING PROGon 08-22-2019 NURSING PROG HNO ID: [id number] Author: Rica Shaikh) AGUSTO Garcia Service: ? Author Type: Registered Nurse Type: Nursing Progress Note Filed: 08/22/2019 12:42 AM Note Text: Nursing Progress Note Patient Name: Elias Shah Patient Location: [place] [address] [address]- Daily Note: 2352: Sound text paged, BP 170/62 and HR 50, pt not symptomatic. 2354: Dr. Rubi called back ordered 50mg PO Hydralazine. Will continue to monitor. This note was completed by: Rica Garcia RN [facility] NUTRITIONon 08-22-2019 NUTRITION HNO ID: [id number] Author: Sydnee Fisher RD (Ld) Service: Nutrition [...] of acute illness identified on 07/11/19 by ESTELA. MST of 0 on this admission. Per [...] 2 Acute Encephalopathy Coronary Artery Disease of [place] Artery of [place] Heart With Stable Angina Pectoris (Hcc) S/P [...] mm St. Cristhian Trifecta pericardial prosthesis at [facility] by Dr. 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 Rivers - Vitamin D deficiency PAST SURGICAL HISTORY Procedure Laterality Date - ATRIAL APPENDAGE LIGATION 07/04/2019 35 mm AtriCure clip at [facility] by Dr. Rivers - CABG (2) VEIN GRAFTS AND ARTERIAL GRAFT(S 07/04/2019 at [facility] [address]. Rivers - REPAIR UMBILICAL HERNIA 12/04/2018 after bowel perforation done at [facility] Dr. Young - REPLAC AORT VALV PROSTH VALV 07/04/[address] Cristhian Trifecta pericardial prosthesis at [facility] by Dr. Rivers Social History Socioeconomic [...] file Gets together: Not on file Attends scientology service: Not on file Active member of [...] oz) 04/13/19 : 88.9 kg (196 lb) [place] Body Weight: 80.9kg Resting Metabolic Rate: 1650 Estimated kilocalorie needs: 2415-0206 kilocalories determined by 25-30 kcal/kg Estimated protein needs: 97-105 grams determined by 1.2-1.3 g/kg [place] weight Estimated fluid needs: 1547-6477 milliliters based on 1 mL per kcal [...] Date 08/21/19 07 - 08/22/19 0659 08/22/19 0700 - 08/23/19 0659 Shift 2992-6096 5053-1657 6648-0765 24 Hour Total 7352-1352 1551-7497 4293-9184 24 Hour Total INTAKE PO 413 721 3119 PO 239 729 3977 Shift Total 646 299 3482 OUTPUT Urine 200 1545 1745 Void (ml) [...] Labs in the past year: Recent Labs 07/07/190 04/22/19 1359 B12 227 -- TIBC -- 373 FE -- 38* EDDI -- 42.3 MNT Billing Type: Initial Assess/15 min 4 units SIGNATURE: WILLIAM Belcher PATIENT NAME: Elias Shah DATE: August 22, 2019 TIME: 12:02 PM PAGER: [phone] [facility] OPERATIVE NOon 08-22-2019 OPERATIVE NO HNO ID: [id number] Author: Zora Peter Service: Gastroenterology Author Type: Physician Type: Operative Report Filed: 08/22/2019 1:40 PM Note Text: OPERATIVE/PROCEDURE REPORT LOG ID: [id number] Surgery/Procedure Date: 08/22/2019 Incision/Procedure Start Time: 1:29 PM Incision Close/Procedure End Time: 1:33 PM Surgeon(s)/Procedural ist(s) and Die Tripper(s): Surgeon(s) and Role: * Zora Peter - [...] 22, 2019 TIME: 1:36 PM PAGER/CONTACT #: Kati [facility] PROGRESSon 08-22-2019 PROGRESS HNO ID: [id number] Author: Roger Castillo Service: Hospital Medicine Author Type: Physician Type: Progress Notes Filed: 08/22/2019 2:45 PM Note Text: DEPARTMENT OF HOSPITAL MEDICINE PROGRESS NOTE SERVICE DATE: 08/22/2019 SERVICE TIME: 8:34 AM Hospital Medicine/Primary Attending: Roger Castillo MD NIGHT AND WEEKEND COVERAGE: After 7pm please page [phone] CHIEF COMPLAINT: UGIB SUBJECTIVE: Patient has had [...] of care discussed with: Patient SIGNATURE: Roger Castillo MD PATIENT NAME: Elias Shah DATE: August 22, 2019 TIME: 8:34 AM PAGER/CONTACT #: [phone] [facility] PT EDon 08-22-2019 PT ED HNO ID: [id number] Author: Adriane GusmanRn) AGUSTO Avelar Service: ? [...] follow-up Electronically signed by: Adriane Avelar RN [facility] PT ED HNO ID: [id number] Author: Sherrie GusmanRnSachin Bradshaw RN Service: Nursing Author Type: Registered Nurse [...] None Electronically Signed By: Sherrie Bradshaw RN Normal [facility] CONSULTon 08-21-2019 CONSULT HNO ID: [id number] Author: Niesha Musa Service: Gastroenterology Author Type: [...] mm St. Cristhian Trifecta pericardial prosthesis at [facility] by Dr. 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 Rivers - Vitamin D deficiency PAST SURGICAL HISTORY Procedure Laterality Date - ATRIAL APPENDAGE LIGATION 07/04/2019 35 mm AtriCure clip at [facility] by Dr. Rivers - CABG (2) VEIN GRAFTS AND ARTERIAL GRAFT(S 07/04/2019 at [facility] [address]. Rivers - REPAIR UMBILICAL HERNIA 12/04/2018 after bowel perforation done at [facility] Dr. Young - REPLAC AORT VALV PROSTH VALV 07/04/[address] Cristhian Trifecta pericardial prosthesis at [facility] by Dr. Rivers FAMILY HISTORY Problem [...] Oral 67 20 100 % ? ? 08/20/192107 145/66 37.2 ?C (99 ?F) Oral 68 18 100 % ? ? 08/20/191952 145/64 37 ?C (98.6 ?F) Oral 83 [...] August 21, 2019 TIME: 12:18 PM PAGER: [phone] [facility] PROGRESSon 08-21-2019 PROGRESS HNO ID: [id number] Author: Roger Castillo Service: Hospital Medicine Author Type: Physician Type: Progress Notes Filed: 08/21/2019 9:06 AM Note Text: DEPARTMENT OF HOSPITAL MEDICINE PROGRESS NOTE SERVICE DATE: 08/21/2019 SERVICE TIME: 9:00 AM Hospital Medicine/Primary Attending: Roger Castillo MD NIGHT AND WEEKEND COVERAGE: After 7pm please page [phone] CHIEF COMPLAINT: Upper back pain SUBJECTIVE: Patient [...] reviewed for today's visit: CBC: Recent Labs 08/21/19 0318 WBC 5.90 RBC 2.85* HB 8.0* HCT [...] of care discussed with: Patient SIGNATURE: Roger Castillo MD PATIENT NAME: Elias Shah DATE: August 21, 2019 TIME: 9:00 AM PAGER/CONTACT #: [phone] Normal [facility] HISTORY PHYSICALon HISTORY PHYSICAL HNO ID: [id number] Author: Dunia Crawford Service: Hospital Medicine Author Type: Physician Type: HANDP Filed: 08/20/2019 8:42 PM Note Text: DEPARTMENT OF HOSPITAL MEDICINE HISTORY AND PHYSICAL EXAM SERVICE DATE: 08/20/2019 SERVICE TIME: 3:00 PM Primary Care Physician: Mal Main MD NIGHT AND WEEKEND COVERAGE: After 7pm, please call cross cover pager #[phone] Subjective CHIEF COMPLAINT: Weakness, BARDALES, melena HPI: [...] mm St. Cristhian Trifecta pericardial prosthesis at [facility] by Dr. 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 Rivers - Vitamin D deficiency PAST SURGICAL HISTORY Procedure Laterality Date - ATRIAL APPENDAGE LIGATION 07/04/2019 35 mm AtriCure clip at [facility] by Dr. Rviers - CABG (2) VEIN GRAFTS AND ARTERIAL GRAFT(S 07/04/2019 at [facility] [address] Rivers - REPAIR UMBILICAL HERNIA 12/04/2018 after bowel perforation done at [facility] Dr. Young - REPLAC AORT VALV PROSTH VALV 07/04/[address] Cristhian Trifecta pericardial prosthesis at [facility] by Dr. Rivers FAMILY HISTORY Problem [...] mouth once daily. Disp: Rfl: 08/19/2019 at 1999 oxyCODONE ir (OXYIR) 5 mg capsule Take [...] Prophylaxis: Contraindicated active bleeding Disposition: Home with [facility] Plan of care discussed with: Patient, Family/Significant Other: sister, Emergeny Room Physician and RN SIGNATURE: Dunia Crawford DO PATIENT NAME: Elias Shah DATE: August 20, 2019 TIME: 3:39 PM PAGER/CONTACT #: [phone] [facility] HOSPon 08-20-2019 HOSP Patient:Manav Shah rd MRN: [...] Acute encephalopathy [G93.40] Coronary artery disease of [place] artery of [place] heart with stable angina pectoris (HCC) [I25.118] [...] Brook Sweeney LPN 08/22/2019 2:51 PM Signed Amalia Zamora called today and left message that the pt fell at home, was taken to [facility] then transferred here. He was diagnosed with anemia and given blood transfusion. Pt had EGD and will need colonoscopy. CAGB x 2 done 07/04/19. Amalia just wanted this to be noted and sent to the care team here. AMA Carson APRN.MAGAZINE PUBLISHER, MAGAZINE PUBLISHER 08/22/2019 3:40 PM Signed Noted. Thank you. Progress Notes (): Dunia Crawford DO 08/20/2019 8:42 PM Signed DEPARTMENT OF HOSPITAL MEDICINE HISTORY AND PHYSICAL EXAM SERVICE DATE: 08/20/2019 SERVICE TIME: 3:00 PM Primary Care Physician: Mal Main MD NIGHT AND WEEKEND COVERAGE: After 7pm, please call cross cover pager #[phone] Subjective CHIEF COMPLAINT: Weakness, BARDALES, melena HPI: [...] mm St. Cristhian Trifecta pericardial prosthesis at [facility] by Dr. 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 Rivers - Vitamin D deficiency PAST SURGICAL HISTORY Procedure Laterality Date - ATRIAL APPENDAGE LIGATION 07/04/2019 35 mm AtriCure clip at [facility] by Dr. Rivers - CABG (2) VEIN GRAFTS AND ARTERIAL GRAFT(S 07/04/2019 at [facility] [address] Rivers - REPAIR UMBILICAL HERNIA 12/04/2018 after bowel perforation done at [facility] Dr. Young - REPLAC AORT VALV PROSTH VALV 07/04/[address] Cristhian Trifecta pericardial prosthesis at [facility] by Dr. Rivers FAMILY HISTORY Problem [...] Prophylaxis: Contraindicated active bleeding Disposition: Home with [facility] Plan of care discussed with: Patient, Family/Significant Other: sister, Emergeny Room Physician and RN SIGNATURE: Dunia Crawford DO PATIENT NAME: Elias Shah DATE: August 20, 2019 TIME: 3:39 PM PAGER/CONTACT #: [phone] Roger Castillo MD 08/21/2019 9:06 AM Addendum DEPARTMENT OF HOSPITAL MEDICINE PROGRESS NOTE SERVICE DATE: 08/21/2019 SERVICE TIME: 9:00 AM Hospital Medicine/Primary Attending: Roger Castillo MD NIGHT AND WEEKEND COVERAGE: After 7pm please page [phone] CHIEF COMPLAINT: Upper back pain SUBJECTIVE: Patient [...] AST 12* ANION 11 MG/PHOS: Recent Labs 08/21/19317 MG 1.7 Assessment/Plan Principal Problem: Anemia POA: [...] of care discussed with: Patient SIGNATURE: Roger Castillo MD PATIENT NAME: Elias Shah DATE: August [...] mm St. Cristhian Trifecta pericardial prosthesis at [facility] by Dr. 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 Rivers - Vitamin D deficiency PAST SURGICAL HISTORY Procedure Laterality Date - ATRIAL APPENDAGE LIGATION 07/04/2019 35 mm AtriCure clip at [facility] by Dr. Rivers - CABG (2) VEIN GRAFTS AND ARTERIAL GRAFT(S 07/04/2019 [address] [facility] [address]. Rivers - REPAIR UMBILICAL HERNIA 12/04/2018 after bowel perforation done at [facility] Dr. Young - REPLAC AORT VALV PROSTH VALV 07/04/[address] Cristhian Trifecta pericardial prosthesis at [facility] by Dr. Rivers FAMILY HISTORY Problem [...] mouth once daily. Disp: Rfl: 08/19/2019 at 1999 oxyCODONE ir (OXYIR) 5 mg capsule Take [...] BMP, Mg, Phos Recent Labs 08/21/19 0318 08/20/19212608/20/19 1656 WBC 5.90 -- -- HB 8.0* [...] August 21, 2019 TIME: 12:18 PM PAGER: [phone] Rica Garcia RN, RN 08/22/2019 12:42 AM Signed Nursing Progress Note Patient Name: Elias Shah Patient Location: [id number]/[place] [id number] Daily Note: 2352: Sound text paged, BP 170/62 and HR 50, pt not symptomatic. 2354: Dr. Rubi called back ordered 50mg PO Hydralazine. Will continue to monitor. This note was completed by: Rica Garcia, AGUSTO Castillo MD 08/22/2019 2:45 PM Addendum DEPARTMENT OF HOSPITAL MEDICINE PROGRESS NOTE SERVICE DATE: 08/22/2019 SERVICE TIME: 8:34 AM Hospital Medicine/Primary Attending: Roger Castillo MD NIGHT AND WEEKEND COVERAGE: After 7pm please page [phone] CHIEF COMPLAINT: UGIB SUBJECTIVE: Patient has had [...] of care discussed with: Patient SIGNATURE: Roger Castillo MD PATIENT NAME: Elias Shah DATE: August 22, 2019 TIME: 8:34 AM PAGER/CONTACT #: [phone] Previous Version Serene Elijah Amaya 08/22/2019 11:08 AM Signed CARE MANAGEMENT PROGRESS NOTE SERVICE DATE: 08/22/2019 SERVICE TIME: 1015 LOS: 2 days IM letter given to patient on [id number]. SIGNATURE: Serene Elijah Amaya PATIENT NAME: Elias Shah DATE: August 22, 2019 TIME: 11:07 AM PAGER/CONTACT #: [phone] WILLIAM Belcher, RD 08/22/2019 12:20 PM Signed [...] of acute illness identified on 07/11/19 by ESTELA. MST of 0 on this admission. Per [...] 2 Acute Encephalopathy Coronary Artery Disease of [place] Artery of [place] Heart With Stable Angina Pectoris (Hcc) S/P [...] mm St. Cristhian Trifecta pericardial prosthesis at [facility] by Dr. 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 Rivers - Vitamin D deficiency PAST SURGICAL HISTORY Procedure Laterality Date - ATRIAL APPENDAGE LIGATION 07/04/2019 35 mm AtriCure clip at [facility] by Dr. Rivers - CABG (2) VEIN GRAFTS AND ARTERIAL GRAFT(S 07/04/2019 at [facility] [address]. Rviers - REPAIR UMBILICAL HERNIA 12/04/2018 after bowel perforation done at [facility] Dr. Young - REPLAC AORT VALV PROSTH VALV 07/04/[address] Cristhian Trifecta pericardial prosthesis at [facility] by Dr. Rivers Social History Socioeconomic [...] file Gets together: Not on file Attends scientology service: Not on file Active member of [...] oz) 04/13/19 : 88.9 kg (196 lb) [place] Body Weight: 80.9kg Resting Metabolic Rate: 1650 Estimated kilocalorie needs: 5071-2694 kilocalories determined by 25-30 kcal/kg Estimated protein needs: 97-105 grams determined by 1.2-1.3 g/kg [place] weight Estimated fluid needs: 8196-8331 milliliters based on 1 mL per kcal [...] 0659 08/22/19 07 - 08/23/19 0659 Shift 6167-3024 1197-2961 9311-4486 24 Hour Total 0092-4113 9456-6435 8434-0874 24 Hour Total INTAKE PO 857 006 6780 PO 592 420 8910 Shift Total 972 680 1184 OUTPUT Urine 200 1545 1745 Void (ml) [...] August 22, 2019 TIME: 12:02 PM PAGER: [phone] Marlon Womack MD 08/22/2019 12:43 PM Signed [...] Pulse: 62 64 (!) 55 Resp: 16 18 Temp: 36.4 ?C (97.5 ?F) [...] 2 Acute Encephalopathy Coronary Artery Disease of [place] Artery of [place] Heart With Stable Angina Pectoris (Hcc) S/P [...] mm St. Cristhian Trifecta pericardial prosthesis at [facility] by Dr. Rivers - S/P AVR (aortic valve replacement) 07/09/2019 - S/P CABG x 2 07/04/2019 [address] [facility] [address] Rivers - Vitamin D deficiency PAST SURGICAL HISTORY Procedure Laterality Date - ATRIAL APPENDAGE LIGATION 07/04/2019 35 mm AtriCure clip at [facility] by Dr. Rivers - CABG (2) VEIN GRAFTS AND ARTERIAL GRAFT(S 07/04/2019 at [facility] [address]. Rivers - REPAIR UMBILICAL HERNIA 12/04/2018 after bowel perforation done at [facility] Dr. Young - REPLAC AORT VALV PROSTH VALV 07/04/[address] Cristhian Trifecta pericardial prosthesis at [facility] by Dr. Rivers FAMILY HISTORY Problem [...] mg INTRAVENOUS q 4 H PRN Roger Castillo 4 mg at 08/21/19 0937 - [MAR Hold due to Transfer] HYDROcodone 5 mg - acetaminophen 325 mg tablet (NORCO) 1 tablet ORAL q 4 H PRN Roger Castillo 1 tablet at 08/21/19 2018 - [MAR Hold due to Transfer] acetaminophen 650 mg tab(s) (TYLENOL) 650 mg ORAL q 4 H PRN [place] 650 mg at 08/21/19 0113 - [MAR Hold due to Transfer] atorvastatin 40 mg tab(s) (LIPITOR) 40 mg ORAL AT BEDTIME [place] 40 mg at 08/21/192003 - [MAR Hold due to Transfer] losartan 50 mg tab(s) (COZAAR) 50 mg ORAL BID [place] 50 mg at 08/22/19 0840 - [MAR Hold due to Transfer] metoprolol tartrate (short acting) 25 mg tab(s) (LOPRESSOR) 25 mg ORAL BID [place] 25 mg at 08/21/192003 - [MAR Hold due to Transfer] tamsulosin ER 0.4 mg cap(s) (FLOMAX) 0.4 mg ORAL DAILY [place] 0.4 mg at 08/21/19 0953 - [MAR Hold due to Transfer] NaCl 0.9% 3-5 mL 3-5 mL INTRAVENOUS q 12 H [place] 3 mL at 08/22/19 0840 - [MAR Hold due to Transfer] NaCl 0.9% 2-10 mL 2-10 mL INTRAVENOUS q 12 H [place] 10 mL at 08/22/19 0900 - [MAR Hold due to Transfer] pantoprazole 40 mg injection (PROTONIX) 40 mg INTRAVENOUS q 12 H [place] 40 mg at 08/22/19 0843 Followed by - [MAR Hold due to Transfer] pantoprazole 40 mg injection (PROTONIX) 40 mg INTRAVENOUS DAILY (6 AM) Duniamiranda Crawford Allergies: ALLERGIES No Known Allergies DOS [...] August 22, 2019 TIME: 12:40 PM CSN: [id number] Sherrie Bradshaw RN, RN 08/22/2019 1:19 PM [...] 1:40 PM Signed OPERATIVE/PROCEDURE REPORT LOG ID: [id number] Surgery/Procedure Date: 08/22/2019 Incision/Procedure Start Time: 1:29 PM Incision Close/Procedure End Time: 1:33 PM Surgeon(s)/Procedural ist(s) and Die Tripper(s): Surgeon(s) and Role: * Zora Peter - [...] 22, 2019 TIME: 2:29 PM PAGER/CONTACT #: [phone] Adriane Avelar RN, RN 08/22/2019 2:48 PM [...] 16 18 08/22/19 1313 08/22/19 1354 08/22/19 14308/22/19 1616 SpO2: 100% 98% 97% 98% Validated [...] Signed By: Ina Ryan RN In Department: [facility] CNOVmary grace 08-12-2019 CNOV Office Visit (AGVASACC) ELIAS SHAH ([id number]) 1940 M Date Time Provider Department 08/12/19 2:00 PM HIGINIO BACON) JAZMYNE During your visit today, we recorded the following information about you: Pulse Respiration Blood pressure Weight 56/minute 20/minute 140/80 90.3 kg Height 1.829 m Higinio Bacon APRN.KEE OTERO 08/12/2019 5:17 PM Signed [...] anemia, hematuria, acute encephalopathy. He was discharged [facility] on 07/13/2019. while recovering in acute [...] Dr Ann 08/18 Cardiac Rehab: TBD at [facility] Subjective: Current Outpatient Medications: metoprolol tartrate, short [...] RELIEF) 50 mcg/actuation nasal spray Use 1 [place] in each nostril once daily. Cholecalciferol, Vitamin [...] mm St. Cristhian Trifecta pericardial prosthesis at [facility] by Dr. 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 Rivers - Vitamin D deficiency PAST SURGICAL HISTORY Procedure Laterality Date - ATRIAL APPENDAGE LIGATION 07/04/2019 35 mm AtriCure clip at [facility] by Dr. Rivers - CABG (2) VEIN GRAFTS AND ARTERIAL GRAFT(S 07/04/2019 at [facility] [address]. Rivers - REPAIR UMBILICAL HERNIA 12/04/2018 after bowel perforation done at [facility] Dr. Young - REPLAC AORT VALV PROSTH VALV 07/04/[address] Cristhian Trifecta pericardial prosthesis at [facility] by Dr. Rivers FAMILY HISTORY Problem [...] mg BID -Stop amiodarone -Will defer to artificial foliage arranger Dr. Ann for further management 4. MAURO (acute kidney injury) (HCC) - ICD9: 584.9, ICD10: N17.9 -SCR 08/04/19 at [facility] 1.20 (1.13-1.18 preop) -Stable 5. Debility - ICD9: 799.3, ICD10: R53.81 - Patient is seen in wheelchair again today, - Home with walker, but occasionally without. - Increase ambulation as much as tolerated 6. Anemia, unspecified type - ICD9: 285.9, ICD10: D64.9 Last H/H 08/22 improved since discharge Higinio Bacon APRN.CNP In summary, Patient is doing improved overall after his CABG/AVR surgery, with no major complaints. Patient is released to drive, work. Patient should start cardiac rehab from this point on. he should follow up with his artificial foliage arranger and PCP as scheduled, and should follow-up with us in 1 month with CXR before. Thanks. Electronically signed by Higinio Bacon APRN.CNP on August 12, 2019, 1:36 PM Higinio Bacon APRN.CNP, CNP 08/12/2019 3:02 PM Addendum [...] help with this. - Please see your artificial foliage arranger regularly. They will take over medication management. [...] the morning Miralax for constipation Others all easg-bzd-zyepxcm Take if you think you need them Miralax for constipation Ferrous polysaccharide - anemia -STOP Robitussin DM syrup -cough Vitamin D - Pro biotic flonase Thank you for coming to see me today!! 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 - Please see your artificial foliage arranger regularly. They will take over medication management. [...] the morning Miralax for constipation Others all zimv-glo-lijymxm Take if you think you need them Miralax for constipation Ferrous polysaccharide - anemia -STOP Robitussin DM syrup -cough Vitamin D - Pro biotic flonase Thank you for coming to see me today!! Higinio Bacon, DIRECTOR LEARNING.MAGAZINE PUBLISHER Prescriptions ordered this encounter Disp Refills Start [...] Med Route: EACH NOSTRIL Sig: Use 1 [place] in each nostril once daily. Disc: Course [...] History Recorded Letter Text Encounter Status:Closed by HIGINIO BACON CNP on 08/12/19 [facility] PROGRESSon 08-12-2019 PROGRESS HNO ID: [id number] Author: Higinio Medina) KEE Bacon Service: ? Author Type: [...] He was discharged [facility] on 07/13/2019. while recovering in acute [...] Dr Ann 08/18 Cardiac Rehab: TBD at [facility] Subjective: Current Outpatient Medications: metoprolol tartrate, short [...] RELIEF) 50 mcg/actuation nasal spray Use 1 [place] in each nostril once daily. Cholecalciferol, Vitamin [...] - S/P AVR 07/04/[address] Crsithian Trifecta pericardial prosthesis at [facility] by Dr. 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 Rivers - Vitamin D deficiency PAST SURGICAL HISTORY Procedure Laterality Date - ATRIAL APPENDAGE LIGATION 07/04/2019 35 mm AtriCure clip at [facility] by Dr. Rivers - CABG (2) VEIN GRAFTS AND ARTERIAL GRAFT(S 07/04/2019 at [facility] [address] Rivers - REPAIR UMBILICAL HERNIA 12/04/2018 after bowel perforation done at [facility] Dr. Young - REPLAC AORT VALV PROSTH VALV 07/04/[address] Cristhian Trifecta pericardial prosthesis at [facility] by Dr. Rivers FAMILY HISTORY Problem [...] mg BID -Stop amiodarone -Will defer to artificial foliage arranger Dr. Ann for further management 4. MAURO (acute kidney injury) (HCC) - ICD9: 584.9, ICD10: N17.9 -SCR 08/04/19 at [facility] [place] 1.20 (1.13-1.18 preop) -Stable 5. Debility - ICD9: 799.3, ICD10: R53.81 - Patient is seen in wheelchair again today, - Home with walker, but occasionally without. - Increase ambulation as much as tolerated 6. Anemia, unspecified type - ICD9: 285.9, ICD10: D64.9 Last H/H 08/22 improved since discharge Higinio Bacon APRN.CNP In summary, Patient is doing improved overall after his CABG/AVR surgery, with no major complaints. Patient is released to drive, work. Patient should start cardiac rehab from this point on. he should follow up with his artificial foliage arranger and PCP as scheduled, and should follow-up with us in 1 month with CXR before. Thanks. Electronically signed by Higinio Bacon APRN.CNP on August 12, 2019, 1:36 PM Normal [facility] CNOVon 07-28-2019 CNOV Office Visit (AGVASACC) LEONIDELIAS GABRIEL ([id number]) 1940 M Date Time Provider Department 07/28/19 3:00 PM HIGINIO BACON (KEE) [facility] During your visit today, we recorded the following information about you: Pulse Respiration Blood pressure Weight 82/minute 18/minute 128/70 93.4 kg Height 1.829 m Higinio Bacon APRN.CNP, CNP 07/29/2019 9:15 AM Signed [...] RELIEF) 50 mcg/actuation nasal spray Use 1 [place] in each nostril once daily. Cholecalciferol, Vitamin [...] mm St. Cristhian Trifecta pericardial prosthesis at [facility] by Dr. 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 Rivers - Vitamin D deficiency PAST SURGICAL HISTORY Procedure Laterality Date - ATRIAL APPENDAGE LIGATION 07/04/2019 35 mm AtriCure clip at [facility] by Dr. Rivers - CABG (2) VEIN GRAFTS AND ARTERIAL GRAFT(S 07/04/2019 at [facility] [address] Rivers - REPAIR UMBILICAL HERNIA 12/04/2018 after bowel perforation done at [facility] Dr. Young - REPLAC AORT VALV PROSTH VALV 07/04/[address] Cristhian Trifecta pericardial prosthesis at [facility] by Dr. Rivers FAMILY HISTORY Problem [...] (patient is receiving only 81 mg at [facility]), atorvastatin 40 mg daily, increase metoprolol to 50 mg 3 times a day - CARDIAC REHAB II OUTPT ([place], [place]) -4-6 weeks once recovered from surgery and f/u with Dr Ann - XR CHEST 2V FRONTAL/LAT -for next visit scheduled in 2 weeks 2. S/P CABG x 2 - ICD9: V45.81, ICD10: Z95.1 -As above - CARDIAC REHAB II OUTPT ([place], [place]) - XR CHEST 2V FRONTAL/LAT 3. [...] ICD9: 799.3, ICD10: R53.81 -Increase ambulation at [facility] -Patient to ambulate with walker independently to prepare for home-going scheduled 08/05/2019 7. Pneumonia due to organism - ICD9: 486, ICD10: J18.9 -On vancomycin and cefepime for presumed pneumonia -Request x-ray image from 07/27/2019 from [facility] -Patient with normal O2 saturation at rest and post ambulatory. -Wean O2 prior to discharge. Higinio Bacon, DIRECTOR LEARNING.MAGAZINE PUBLISHER In summary, Elias Shah is doing better overall after his combined CABG aVR surgery, with no major complaints. he should follow-up in this office in 2 weeks with Chest X-ray. Thanks. Electronically signed by Higinio Bacon APRN.CNP on July 28, 2019, 12:54 PM Higinio Bacon APRN.CNP, CNP 07/28/2019 4:42 PM Addendum -Please follow-up with your primary care physician and your artificial foliage arranger in 4-6 weeks -Please return to cardiac surgery in 3-4 weeks with a chest x-ray done before the appointment -Restriction remain: No lifting more than 10 lbs and No driving. -Cardiac rehab has been consulted. You will be able to begin cardiac rehab after your next visit with us. [facility]: . Recommendations: 1. Increase ASA to 162 [...] you for coming to see me today! 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 -Cardiac rehab has been consulted. You will be able to begin cardiac rehab after your next visit with us. [facility]: . Recommendations: 1. Increase ASA to 162 [...] you for coming to see me today! Higinio Bacon APRN.MAGAZINE PUBLISHER Prescriptions ordered this encounter Disp Refills Start [...] therapy completed Letter Text Encounter Status:Closed by HIGINIO BACON CNP on 07/29/19 [facility] PROGRESSon 07-28-2019 PROGRESS HNO ID: [id number] Author: Higinio (Kee) KEE Bacon Service: ? Author Type: [...] anemia, hematuria, acute encephalopathy. He was discharged [facility] on 07/13/2019. In the intervening week [...] RELIEF) 50 mcg/actuation nasal spray Use 1 [place] in each nostril once daily. Cholecalciferol, Vitamin [...] mm St. Cristhian Trifecta pericardial prosthesis at [facility] by Dr. 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 Rivers - Vitamin D deficiency PAST SURGICAL HISTORY Procedure Laterality Date - ATRIAL APPENDAGE LIGATION 07/04/2019 35 mm AtriCure clip at [facility] by Dr. Rivers - CABG (2) VEIN GRAFTS AND ARTERIAL GRAFT(S 07/04/2019 at [facility] [address]. Rivres - REPAIR UMBILICAL HERNIA 12/04/2018 after bowel perforation done at [facility] Dr. Young - REPLAC AORT VALV PROSTH VALV 07/04/[address] Cristhian Trifecta pericardial prosthesis at [facility] by Dr. Rivers FAMILY HISTORY Problem [...] (patient is receiving only 81 mg at [facility]), atorvastatin 40 mg daily, increase metoprolol to 50 mg 3 times a day - CARDIAC REHAB II OUTPT ([place], [place]) -4-6 weeks once recovered from surgery and f/u with Dr Ann - XR CHEST 2V FRONTAL/LAT -for next visit scheduled in 2 weeks 2. S/P CABG x 2 - ICD9: V45.81, ICD10: Z95.1 -As above - CARDIAC REHAB II OUTPT ([place], [place]) - XR CHEST 2V FRONTAL/LAT 3. [...] ICD9: 799.3, ICD10: R53.81 -[facility] -Patient to ambulate with walker independently to prepare for home-going scheduled 08/05/2019 7. Pneumonia due to organism - ICD9: 486, ICD10: J18.9 -On vancomycin and cefepime for presumed pneumonia -[facility] -Patient with normal O2 saturation at rest and post ambulatory. -Wean O2 prior to discharge. Higinio Bacon APRN.KEE In summary, Elias Shah is doing better overall after his combined CABG aVR surgery, with no major complaints. he should follow-up in this office in 2 weeks with Chest X-ray. Thanks. Electronically signed by Higinio Bacon APRN.CNP on July 28, 2019, 12:54 PM [facility] CNPJohanna 07-21-2019 KEEN Telephone (6fusion) ELIAS SHAH ([id number]) 1940 M Date Time Provider Department 07/21/19 WAYNE RIVERS During your visit today, we recorded the following information about you: Brook Sweeney LPN 07/21/2019 2:45 PM Signed Janee a nurse at [facility], transitional care unit calls with concern of [...] new orders please call her directly # [phone]. If desired an EKG can be done at that facility. AMA Carson APRN.KEE OTERO 07/21/2019 4:17 PM Signed [facility] She reports that Mr. Carreno heart rate [...] verbalized understanding and agreed to this plan. 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 They were updated on grain picker time. Orders will be faxed as soon as MAHENDRA finalizes. left for pts sister Amalia at pt request. SIGNATURE: Greg Naqvi RN PATIENT NAME: Elias Shah DATE: July 13, 2019 TIME: 1:52 PM PAGER/CONTACT #: [phone] [facility] CASE MANAGEM HNO ID: [id number] Author: Greg (Rn) AGUSTO Naqvi Service: Care Management Author Type: Registered Nurse Type: Care Mgt Progress Note Filed: 07/13/2019 1:43 PM Note Text: CARE MANAGEMENT PROGRESS NOTE SERVICE DATE: 07/13/2019 SERVICE TIME: 1324 LOS: 9 days Multiple calls attempted to [facility] to see if they can accept pt. No answer was given in [employer] yesterday and [employer] is down today. Finally received callback from Nancy at [facility], she still feels pt is more appropriate for skilled and not acute rehab, states that the pt is 79 and he had a CABG. I did explain that the pt has been ambulating in the unit with minimal assist multiple times per day and PT/OT rec acute rehab. Facility requesting latest PT/OT to be faxed. Evals from 07/11 were faxed to [phone]. Await response. Pt is agreeable to go skilled if pt will not take for acute rehab. Anticipate dc later today. Ambulette set up fpr 4 pm. Still waiting on final acceptance from [facility]. SIGNATURE: Greg Naqvi RN PATIENT NAME: Elias Shah DATE: July 13, 2019 TIME: 1:24 PM PAGER/CONTACT #: [phone] [facility] 07-13-2019 [facility] Telephone ([facility]) ELIAS SHAH ([id number]) 1940 M Date Time Provider Department 07/13/19 MARLON MILLAN) [facility] During your visit today, we recorded the following information about you: Marlon Millan PA-C 07/13/2019 4:09 PM Signed Please schedule follow up appointment in 1 week s/p AVR/ CABG/ left atrial appendage clip. Thanks! 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: Developer Programmer Analyst - Hospital Follow Up [0757] Prescriptions as of 07/13/2019 Sig: ACETAMINOPHEN 325 [...] FLONASE ALLERGY RELIEF 50 MCG* Use 1 [place] in each nostril o* CHOLECALCIFEROL (VITAMIN D3) * Take 5,000 Units by mouth onc* Problem List As Of Date 07/13/2019 Noted Resolved Abnormal electrocardiogram (ECG) (EKG) [R94.31] INVALID FOR* Anemia, unspecified [D64.9] INVALID FOR* Aortic valve stenosis [I35.0] INVALID FOR* Atrial fibrillation with rapid ventricular resp*INVALID FOR* MAURO (acute kidney injury) ([facility]) [N17.9] INVALID FOR* Acute metabolic encephalopathy [G93.41] [...] [I35.0] INVALID FOR* Malnutrition of moderate degree ([facility]) [E44.0] INVALID FOR* S/P AVR (aortic valve replacement) [Z95.2] INVALID FOR* S/P CABG x 2 [Z95.1] INVALID FOR* Acute encephalopathy [G93.40] INVALID FOR* 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 Saw him ambulating in [place] earlier. Now sitting in chair at bedside [...] on 07/04/2019. Patient is now s/p AVR. 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 SIGNATURE: Salomon Roque APRN.MEDIA CLERK PATIENT NAME: Elias Shah DATE: July 13, 2019 TIME: 10:47 AM PAGER/CONTACT #: [phone] [facility] PLAN OF CAREon 07-13-2019 PLAN OF CARE HNO ID: [id number] Author: Fabi De La Cruz (Assembler Billiard Table) Service: ? Author Type: ? Type: Plan of Care Filed: 07/13/2019 3:34 PM Note Text: MAP MAKER BEDSIDE DELIVERY SURVEY 1. Patient to use [facility] Bedside Delivery - N/A Insurance Information as follows: 2. Insurance card on file - N/A 3. Credit card for payment - N/A Patient DC to SNF/acute rehab/inpatient facility, therefore not eligible for pharmacy bedside delivery service. Fabi De La Cruz ([employer]) [phone] [facility] PROGRESSon 07-13-2019 PROGRESS HNO ID: [id number] Author: Ronn Kincaid Service: Pulmonary Disease Author [...] OK with CVICU. SIGNATURE: Ronn Kincaid MD [facility] DATE of SERVICE: July 13, 2019 TIME of SERVICE: 9:20 AM [facility] PROGRESS HNO ID: [id number] Author: Jim Castro DO Service: Cardiac Surgery [...] 2019 TIME: 6:16 AM PAGER/CONTACT #: [phone] [facility] CASE MANAGEMon 07-12-2019 CASE MANAGEM HNO ID: [id number] Author: Greg (Rn) AGUSTO Naqvi Service: Care Management Author Type: Registered Nurse Type: Care Mgt Progress Note Filed: 07/12/2019 11:56 AM Note Text: CARE MANAGEMENT PROGRESS NOTE SERVICE DATE: 07/12/2019 SERVICE TIME: 1152 LOS: 8 days Received message from staff at [facility] stating they feel pt is more appropriate [...] Pt prefers acute rehab. Message sent to [facility], await response. SIGNATURE: Greg Naqvi RN PATIENT NAME: Elias Shah DATE: July 12, 2019 TIME: 11:52 AM PAGER/CONTACT #: [phone] [facility] CONSULTon 07-12-2019 CONSULT HNO ID: [id number] Author: Alvin Jose Service: Electrophysiology Author Type: [...] HERNIA 12/04/2018 after bowel perforation done at [facility] Dr. Young FAMILY HISTORY Problem Relation Age [...] Unknown time Yes Yes Sig: Use 1 [place] in each nostril once daily. 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 * Orders reviewed and I agree with the cardiac orders. Additional orders include . SIGNATURE: Alvin Jose DO PATIENT NAME: Elias Shah DATE: July 12, 2019 TIME: 11:14 AM PAGER/CONTACT #: [phone] [facility] ECG COMPLETEon 07-12-2019 ECG COMPLETE NAME : ELIAS SHAH PID : [id number] : 1940 Gender : Male Race : ORD : [id number] Procedure Date : Jul 12 2019 09:22:34 [...] LONGER PRESENT Confirmed by MD ESCALANTE VINAYAK ([id number]) on 07/12/2019 8:58:11 PM Ventricular Rate : 119 BPM Atrial Rate : 119 BPM QRS Duration : 150 ms Q-T Interval : 396 ms QTC Calculation(Bazett) : 557 ms R [place] : -58 degrees T [place] : 114 degrees Test Reason : Arrhythmia Location : 6 : [place] [id number] Overread By : MD ESCALANTE VINAYAK Edited By : MD ESCALANTE VINAYAK Referred By : WAYNE RIVERS Acquired by : MARLON MAYER [facility] NURSING PROGon 07-12-2019 NURSING PROG HNO ID: [id number] Author: Suni (Rn) AGUSTO Maguire Service: ? [...] resulted 165/87. Will continue to monitor Normal [facility] NURSING PROG HNO ID: [id number] Author: Suni GusmanRn) AGUSTO Maguire Service: ? Author Type: Registered Nurse Type: Nursing Progress Note Filed: 07/12/2019 11:15 AM Note Text: Dr Cruz At bedside for EP consult Normal [facility] NURSING PROG HNO ID: [id number] Author: Suni GusmanRn) AGUSTO Maguire Service: ? [...] possible deterioration. Will continue to monitor Normal [facility] PROGRESSon 07-12-2019 PROGRESS HNO ID: [id number] Author: Marlon Millan (Pa) Service: Cardiovascular Surgery Author Type: Physician Die Tripper Type: Progress Notes Filed: 07/12/2019 5:32 PM [...] 12, 2019 TIME: 2:17 PM PAGER/CONTACT #: [phone] [facility] PROGRESS HNO ID: [id number] Author: Ronn Kincaid Service: Pulmonary Disease Author [...] availability for transfer. SIGNATURE: Ronn Kincaid MD [facility] DATE of SERVICE: July 12, 2019 TIME of SERVICE: 9:36 AM [facility] PROGRESS HNO ID: [id number] Author: Jim Castro DO Service: Cardiac Surgery [...] urine Lines, Drains, and Airways Line Peripheral 07/10/19 1100 Midline Right Antecubital 20 Gauge 1 [...] 2019 TIME: 6:13 AM PAGER/CONTACT #: [phone] [facility] ALLIED HEALTHon 08-19-2019 ALLIED HEALTH HNO ID: [id number] Author: Mal (Supervisor Beehive Kiln) ASTRID Mendoza Service: Cardiac Rehab Author Type: Registered Resp Therapist Type: Allied Health Filed: 07/11/2019 3:16 PM Note Text: CARDIAC REHABILITATION PATIENT EDUCATION PROGRESS NOTE Name: Elias Shah Date of Service: 07/11/19 Time of Service: 1513 ASSESSMENT: Risk Factors Identified: Family History Gender Hyperlipidemia Hypertension Obesity Sedentary Lifestyle RECOMMENDATIONS: Patient interested in Phase II Outpatient Cardiac Rehab: Yes. Facility Preferred: [facility] DIAGNOSIS: Open Heart Surgery: CABG Open Heart [...] Rehabilitation Brochure Signature: Mal Mendoza RRT Pager: [phone] Date: July 11, 2019 Time: 3:14 PM [facility] CASE MANAGEMon 07-11-2019 CASE MANAGEM HNO ID: [id number] Author: Imelda (Rn) AGUSTO Rizvi Service: ? [...] 11, 2019 TIME: 2:43 PM PAGER/CONTACT #: [phone] [facility] NURSING PROGon 07-11-2019 NURSING PROG HNO ID: [id number] Author: Suni GusmanRnSachin Maguire RN Service: ? Author Type: Registered Nurse Type: Nursing Progress Note Filed: 07/11/2019 2:30 PM Note Text: PT/OT assisted with using bedside commode and ambulating a full lap. Pt assisted back to bed upon request, awaiting AV wires to be removed by Daniele MCCRAY. Pt did experience a run of VTach once brought back to room, AxO during episode and complained of SOB on room air, maintaining above 96%. Will continue to monitor Normal [facility] NUTRITIONon 07-11-2019 NUTRITION HNO ID: [id number] Author: Mimi Smith Service: Nutrition Therapy Author [...] July 11, 2019 TIME: 12:14 PM PAGER: [phone] [facility] NUTRITION HNO ID: [id number] Author: Yasmine Sanchez RD Service: Nutrition Therapy [...] 2 Acute Encephalopathy Coronary Artery Disease of [place] Artery of [place] Heart With Stable Angina Pectoris (Hcc) PAST [...] HERNIA 12/04/2018 after bowel perforation done at [facility] Dr. Young Nutritional Intake: <75% estimated energy [...] July 11, 2019 TIME: 8:46 AM PAGER: [phone] [facility] PROGRESSon 07-11-2019 PROGRESS HNO ID: [id number] Author: Marlon Millan (Pa) Service: Cardiovascular Surgery Author Type: Physician Die Tripper Type: Progress Notes Filed: 07/11/2019 2:02 PM [...] LE Lines, Drains, and Airways Line Peripheral 18/19 1100 Midline Right Antecubital 20 Gauge 1 day Drain Indwelling Urinary Catheter 07/04/ Assessment Temperature Monitoring 24 Fr 7 days DATA: Recent Labs 07/11/ 0950 07/10/ 1130 07/09/ 0538 RBC -- 2.61* 2.69* WBC -- [...] hematuria ? Diet -Heart healthy? Transfer to [facility] today Tests/Labs Ordered: 1. BMP 2. CBC SIGNATURE: Marlon Millan PA-C PATIENT NAME: Elias Shah DATE: July 11, 2019 TIME: 1:21 PM PAGER/CONTACT #: [phone] [facility] PROGRESS HNO ID: [id number] Author: Jim Castro DO Service: Cardiac Surgery Author Type: Resident Type: Progress Notes Filed: 07/11/2019 7:03 AM Note Text: Attestation signed by Wayne Rivers at 07/11/2019 11:13 AM Attending Note I evaluated the patient and personally participated in the simomns components. I agree with the resident's findings and plan as documented and have discussed the case and management of the patient's care with the resident. Doing well. Will increase BBSara Sullivan. DC pacing wires. Transfer to [facility]. to consider farley removal. Placement pending. Signature: [...] LOS: 7 INTERVAL EVENTS / PERTINENT ROS: GABO. Just got back from a walk. Admits [...] 2019 TIME: 6:17 AM PAGER/CONTACT #: [phone] [facility] THERAPY NTon 07-11-2019 THERAPY NT HNO ID: [id number] Author: Chloe (Otr/LSachin Asher Service: Occupational Therapy Author Type: Occupational Therapist Type: Therapy (PT/OT/Speech/Resp) Filed: 07/11/2019 3:37 PM Note Text: Occupational Therapy Treatment SERVICE DATE: 07/11/2019 SERVICE TIME: 1355 to 1410 ROOM: [id number] Recommended Discharge Disposition: Acute Rehab Recommended Discharge [...] Cognitive Functions and Awareness Interventions Provided: Self Assisted Management (20270) Self Assisted Management (80375) Treatment Minutes: 15 1 unit Skilled Intervention(s): [...] commands noted. Well, you're in a hospital. [facility], if you didn't remember when asked for orientation to place. Reported pain in right shoulder at 7/10. My left one hurt too right after surgery, but it's better. I guess it's how they positioned me. Home Environment Patient Lives With: Family(sister) Assistance Available: pickup driver Entry To Home: Stairs Prior Functional Level: [...] July 11, 2019 TIME: 3:21 PM [facility] THERAPY NT HNO ID: [id number] Author: Maggie Rizvi Service: Physical Therapy Author Type: Physical Therapist Type: Therapy (PT/OT/Speech/Resp) Filed: 07/11/2019 3:21 PM Note Text: Physical Therapy Treatment SERVICE DATE: 07/11/2019 SERVICE TIME: 1409 to 1420 ROOM: [place] [address] Recommended Discharge Disposition: Acute Rehab Recommended Discharge [...] therapy and has been walking the the property staff accountant several times last last few [...] Patient TREATMENT INTERVENTIONS: Interventions Provided: Therapeutic Activity (11971);Gait Training (52325) Therapeutic Activity (31684) Treatment Minutes: 1 0 units Skilled Intervention(s): Education with hugging the pillow to his chest and laying on his side to log roll into the bed. Required assist to lif this legs in to the bed. The patient was instructed to keep holding the pillow and roll to his back. Gait Training (32423) Treatment Minutes: 10 1 unit Skilled Intervention(s): [...] Environment Patient Lives With: Family(sister) Assistance Available: pickup driver Entry To Home: Stairs Prior Functional Level: [...] July 11, 2019 TIME: 3:15 PM [facility] THERAPY NT HNO ID: [id number] Author: Shashi (Ccc-Smoking Pipe Coater) Daquan CCC/SOFTWARE TEST ANALYST Service: Speech/Swallow Author Type: Speech Language Pathologist Type: Therapy (PT/OT/Speech/Resp) Filed: 07/11/2019 12:22 PM Note Text: Speech Therapy MBSS Evaluation SERVICE DATE: 07/11/2019 SERVICE TIME: 1045 to 1100 ROOM: [place] [address] Nursing Recommendations: See swallow guide posted in [...] Tested: Thin Barium Liquids;Mildly Thick Barium Liquids ([place] Thick);Puree With Barium Paste;Solid With Barium Paste [...] phase Interventions Provided: Modified Barium Swallow Study (23690) $ Modified Barium Swallow Study (71118) Billed Units: 1 unit Total Treatment Time [...] for this therapy evaluation/treatment. SIGNATURE: Shashi Butt [facility]-SOFTWARE TEST ANALYST PATIENT NAME: Elias Shah DATE: July 11, 2019 TIME: 12:20 PM [facility] PROGRESSon 07-10-2019 PROGRESS HNO ID: [id number] Author: Wayne Rivers Service: Cardiac Surgery Author [...] [facility] Trifecta valve and s/p CABGx2 (HARRINGOTN-LAD, SVG-ramus) -POD#6 -c/w ASA, statin, BB -Pain [...] 2019 TIME: 9:55 AM PAGER/CONTACT #: [phone] [facility] PROGRESS HNO ID: [id number] Author: Christopher Cook Service: Critical Care Author [...] ? SIGNATURE: Christopher Cook MD [facility] PAGER:[phone] [facility] PROGRESS HNO ID: [id number] Author: Downtime Note Service: ? Author Type: ? Type: Progress Notes Filed: 07/10/2019 3:03 AM Note Text: Epic Scheduled Downtime: 07/10/2019 1:00:00 AM to 07/10/2019 2:53:18 AM Normal [facility] ECG COMPLETEon 07-09-2019 ECG COMPLETE NAME : ELIAS SHAH PID : [id number] : 1940 Gender : Male Race : ORD : [id number] Procedure Date : Jul 09 2019 06:15:23 [...] EVIDENT IN ANTERIOR LEADS Confirmed by MD WILKES ANUBHAV ([id number]) on 07/09/2019 12:41:59 PM Ventricular Rate : 99 BPM Atrial Rate : 100 BPM QRS Duration : 110 ms Q-T Interval : 396 ms QTC Calculation(Bazett) : 508 ms R [place] : -45 degrees T [place] : 146 degrees Test Reason : Check QT Location : 6 : CVICU 3229 Overread By : MD WILKES ANUBHAV Edited By : MD WILKES ANUBHAV Referred By : WAYNE RIVERS Acquired by : ANGELY LYNNE [facility] PROGRESSon 07-09-2019 PROGRESS HNO ID: [id number] Author: Wayne Rivers Service: Cardiac Surgery Author [...] 2019 TIME: 12:41 PM PAGER/CONTACT #: [phone] [facility] PROGRESS HNO ID: [id number] Author: Christopher Cook Service: Critical Care Author [...] minutes. SIGNATURE: Christopher Cook MD [facility] PAGER:[phone] [facility] THERAPY NTon 07-09-2019 THERAPY NT HNO ID: [id number] Author: Daria GusmanCcc-Smoking Pipe Coater) YUKI Mccauley/LETY Service: Speech/Swallow Author Type: Speech Language Pathologist Type: Therapy (PT/OT/Speech/Resp) Filed: 07/09/2019 8:17 AM Note Text: SPEECH THERAPY MISSED VISIT SERVICE DATE: 07/09/2019 SERVICE TIME: 816 to 816 ROOM: [place] [address] Attempted MBSS Evaluation. Patient not seen due to Other: See Comment. Aware of Modified Barium Swallow Study order. Will complete as scheduled. SIGNATURE: Daria Mccauley CCC-SOFTWARE TEST ANALYST PATIENT NAME: Elias Shah DATE: July 09, 2019 TIME: 8:17 AM [facility] ALLIED HEALTHon 07-08-2019 ALLIED HEALTH HNO ID: [id number] Author: Marybeth (Rn) AGUSTO Park Service: ? Author Type: Registered Nurse Type: Allied Health Filed: 07/08/2019 11:14 AM Note Text: CARDIAC REHABILITATION PATIENT EDUCATION PROGRESS NOTE Name: Elias Shah Date of Service: 07/08/19 Time of Service: 11:11 AM Talked to pt nurse , suggested to wait till Thursday to educate about cardiac rehab, pt not appropriate at this time Signature: Marybeth Park RN Pager: [phone] Date: July 08, 2019 Time: 10:27 AM [facility] CASE MANAGEMon 07-08-2019 CASE MANAGEM HNO ID: [id number] Author: Imelda (Rn) Dmitri RN Service: ? Author Type: Registered Nurse Type: Care Mgt Progress Note Filed: 07/08/2019 2:47 PM Note Text: CARE MANAGEMENT PROGRESS NOTE SERVICE DATE: 07/08/2019 SERVICE TIME: 2:45 PM LOS: 4 days FREEDOM OF CHOICE GIVEN: Yes acute rehab The patient and/or family has been given the Provider List: Yes Provider List: Rehab Facility Preference: [facility] Rehab Needs Prior to Discharge: Accepting Facility;Discharge Transportation Met with pt and sister to discuss disch plan.. Pt and sister are in agreement for [facility] rehab. Referral created. SIGNATURE: Imelda Rizvi RN PATIENT NAME: Elias Shah DATE: July 08, 2019 TIME: 2:45 PM PAGER/CONTACT #: [phone] [facility] CASE MANAGEM HNO ID: [id number] Author: Serene Amaya Service: Care Management Author Type: ? Type: Care Mgt Progress Note Filed: 07/08/2019 9:56 AM Note Text: CARE MANAGEMENT PROGRESS NOTE SERVICE DATE: 07/08/2019 SERVICE TIME: 0845 LOS: 4 days IM letter given to patient on [id number]. SIGNATURE: Serene Amaya PATIENT NAME: Elias Shah DATE: July 08, 2019 TIME: 9:56 AM PAGER/CONTACT #: [phone] [facility] CONSULT PROGon 07-08-2019 CONSULT PROG HNO ID: [id number] Author: Tahir Riley MD Service: Neurology ICU [...] and coagulopathy w/ thrombocytopenia who presented to [facility] for CABG and AVR. Patient is [...] 08, 2019 TIME: 7:44 PM PAGER/CONTACT #: [phone] [facility] NUTRITIONon 07-08-2019 NUTRITION HNO ID: [id number] Author: Yasmine Sanchez RD Service: Nutrition Therapy [...] HERNIA 12/04/2018 after bowel perforation done at [facility] Dr. 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 05/11/19 : 88.5 kg (195 lb), cardiology 05/11/19 : 88.8 kg (195 lb 12.8 oz) 04/13/19 : 88.9 kg (196 lb) [place] Body Weight: 80.9kg Resting Metabolic Rate: 1755 Estimated kilocalorie needs: 6343-6720 kilocalories determined by 25-30 kcal/kg Estimated protein needs: 97-121 grams determined by 1.2-1.5 g/kg [place] weight Estimated fluid needs: 1209-9460 milliliters based on 1 mL per kcal [...] min 3 units SIGNATURE: Yasmine Sanchez RD, WILLIAM PATIENT NAME: Elias Shah DATE: July 08, 2019 TIME: 8:39 AM PAGER: [phone] [facility] PROGRESSon 07-08-2019 PROGRESS HNO ID: [id number] Author: Nohemi Glover Service: Cardiovascular Disease Author [...] 08, 2019 TIME: 12:57 PM PAGER/CONTACT #: [phone] [phone] [facility] PROGRESS HNO ID: [id number] Author: Marlon Dubon Jr. Service: Critical Care [...] HERNIA 12/04/2018 after bowel perforation done at [facility] Dr. Young Social History Socioeconomic History Marital [...] file Gets together: Not on file Attends scientology service: Not on file Active member of [...] 10 mg in NaCl 0.9% 250 mL (ZACH-SYNEPHRINE) 20-200 mcg/min INTRAVENOUS CONTINUOUS - ferrous sulfate [...] July 08, 2019 TIME: 9:56 AM [facility] PROGRESS HNO ID: [id number] Author: Jim Castro DO Service: Cardiac Surgery [...] controlled. Persisting chest pain. DIET NPO per SOFTWARE TEST ANALYST. Objective Admission Weight: 90.7 kg (200 lb) [...] endoscopic vein harvest - DIET NPO - nitro/zach PRN. Both off this AM - pain/nausea [...] recommendations, check Vit D and B12 - SOFTWARE TEST ANALYST: NPO alternate means of nutrition. Continued reassessments [...] once out of ICU Oliguria, MAURO - falrey, strict I/Os, - Lasix 20mg x1 dose given 07/07, repeat today - improved this AM, continue to monitor GI PPx -Protonix DVT PPx - SCDs, holding LVX Tests/Labs Ordered: 1. Echo SIGNATURE: Jim Castro DO PATIENT NAME: Elias Shah DATE: July 08, 2019 TIME: 6:14 AM PAGER/CONTACT #: [phone] [facility] THERAPY NTon 07-08-2019 THERAPY NT HNO ID: [id number] Author: Daria (Ccc-Smoking Pipe Coater) YUKI Mccauley/SOFTWARE TEST ANALYST Service: Speech/Swallow Author Type: Speech Language Pathologist Type: Therapy (PT/OT/Speech/Resp) Filed: 07/08/2019 3:14 PM Note Text: Speech Therapy Treatment SERVICE DATE: 07/08/2019 SERVICE TIME: 1448 to 1504 ROOM: [place] [address] Nursing Recommendations: See swallow guide posted in [...] Session -Patient alert, up in bed on SOFTWARE TEST ANALYST arrival, agreeable to therapy -Able to feed self with set up assist -Mastication time increased for solids -Trace to minimal oral residuals post swallow, able to clear with SOFTWARE TEST ANALYST facilitated liquid wash -Laryngeal movement detected upon [...] Dysphagia, oropharyngeal phase Interventions Provided: Dysphagia Therapy (02079) $ Dysphagia Therapy (59266) Billed Units: 1 unit Skilled Interventions: Provided [...] MAURO, afib, CAD, HTN, hyperlipidemia Patient Report: I feel better Home Environment Prior Functional Level: Unable to Assess Assistance Available: Unable to determine at this time Prior Swallowing Function/Diet Textures: Unable to determine at this time Please see discipline specific clinical documentation flowsheet for complete details for this therapy evaluation/treatment. SIGNATURE: Daria Mccauley [facility]-SOFTWARE TEST ANALYST PATIENT NAME: Elias Shah DATE: July 08, 2019 TIME: 3:09 PM [facility] CONSULTon 07-07-2019 CONSULT HNO ID: [id number] Author: Saeed Philip (Pa) Service: Neurology ICU Author Type: Physician Die Tripper Type: Consults Filed: 07/07/2019 9:18 PM Note [...] and coagulopathy w/ thrombocytopenia who presented to [facility] for CABG and AVR. Patient is [...] 10 mg in NaCl 0.9% 250 mL (ZACH-SYNEPHRINE) 20-200 mcg/min INTRAVENOUS CONTINUOUS - ferrous sulfate [...] HERNIA 12/04/2018 after bowel perforation done at [facility] Dr. Young Social History Socioeconomic History Marital [...] file Gets together: Not on file Attends scientology service: Not on file Active member of [...] No MAURO (acute kidney injury) (HCC) 05/12/2019 Higinio Bacon No Impaired cognition 05/12/2019 Higinio Bacon No Anemia, unspecified 02/11/2019 Higinio Bacon No Essential hypertension 02/11/2019 Higinio Bacon No Abnormal electrocardiogram (ECG) (EKG) 02/01/2019 Higinio Bacon No Atrial fibrillation with rapid ventricular response (HCC) 02/01/2019 Higinio Bacon No Hyperlipidemia 02/01/2019 Higinio Bacon No Aortic valve stenosis 12/06/2018 Higinio Bacon No Acute metabolic encephalopathy 12/05/2018 Higinio Bacon No Vitamin D deficiency 12/05/2018 Higinio Bacon No Paroxysmal atrial fibrillation (HCC) 12/05/2018 Higinio Bacon No LBBB (left bundle branch block) 12/05/2018 Higinio Bacon No Declining functional status 12/05/2018 Higinio Bacon No Small bowel obstruction (HCC) 12/04/2018 Higinio Bacon No Incarcerated umbilical hernia 12/04/2018 Higinio Bacon No 79 M with significant medical comorbidities [...] 07, 2019 TIME: 8:38 PM PAGER/CONTACT #: [phone] [facility] NURSING PROGon 07-07-2019 NURSING PROG HNO ID: [id number] Author: Suni (Rn) AGUSTO Maguire Service: ? [...] continue to monitor, educate and encourage Normal [facility] NURSING PROG HNO ID: [id number] Author: Suni (Rn) AGUSTO Maguire Service: ? [...] and reactive, will continue to monitor Normal [facility] PLAN OF CAREon 07-07-2019 PLAN OF CARE HNO ID: [id number] Author: Angely Mora (Pharmacist) Service: Pharmacy Author Type: Pharmacist Type: Plan of Care Filed: 07/11/2019 3:04 PM Note Text: MEDICATION HISTORY Patient Name:Sania Shah : 1940 Source of history:Pharmacy records: [facility] [place] (electronic and fax) and Patient: recognized most medications, could not necessarily remember the name of every single medication Medication Nonadherence Identified: No barriers noted The above information represents the best possible medication history: Yes Additional comments: Uurmm-ld-Mzjjtcuha Medication List Adjustments: Medication Regimen Changes: Carvedilol [...] 07, 2019 2:31 PM Reconciliation: Yes All MIGRANT LEADER medications addressed by LIP Additional comments: N/A Allergies: ALLERGIES No Known Allergies [facility]acy[facility] [place] Current MIGRANT LEADER Medications: Prior to Admission medications as of [...] RELIEF) 50 mcg/actuation nasal spray Use 1 [place] in each nostril once daily. 07/03/2019 at [...] daily. Unknown at Unknown time Risa Garcia (Supervisor Scrap Preparation) July 07, 2019 1:22 PM [facility] PROGRESSon 07-07-2019 PROGRESS HNO ID: [id number] Author: Marlon Millan (Pa) Service: Cardiovascular Surgery Author Type: Physician Die Tripper Type: Progress Notes Filed: 07/07/2019 4:15 PM [...] There has been a gradual mental status liner roll changer the last 12H. Afib RVR continued depsite [...] 07, 2019 TIME: 11:03 AM PAGER/CONTACT #: [phone] [phone] Addendum #1 [id number] 07/07/[address] brain without contrast now [...] gtt without bolus. Marlon Millan PA-C [facility] PROGRESS HNO ID: [id number] Author: Marlon Dubon Jr. Service: Critical Care [...] HERNIA 12/04/2018 after bowel perforation done at [facility] Dr. Young Social History Socioeconomic History Marital [...] file Gets together: Not on file Attends scientology service: Not on file Active member of [...] 10 mg in NaCl 0.9% 250 mL (ZACH-SYNEPHRINE) 20-200 mcg/min INTRAVENOUS CONTINUOUS - ferrous sulfate [...] follows Respiratory/Nursing Documentation: O2 Therapy: Nasal Cannula (07/07/19757) Invasive Ventilator Mode: Continuous Positive Airway Pressure;Pressure [...] July 07, 2019 TIME: 12:42 PM Normal [facility] PROGRESS HNO ID: [id number] Author: Jim Castro DO Service: Cardiac Surgery [...] HEART HEALTHY - Wean pressors as tolerated, nitro/zach PRN. Nitro back on this AM for [...] 2019 TIME: 6:25 AM PAGER/CONTACT #: [phone] Normal [facility] THERAPY NTon 07-07-2019 THERAPY NT HNO ID: [id number] Author: Daria (Ccc-Smoking Pipe Coater) Garrick CCC/SOFTWARE TEST ANALYST Service: Speech/Swallow Author Type: Speech Language Pathologist Type: Therapy (PT/OT/Speech/Resp) Filed: 07/07/2019 2:13 PM Note Text: Speech Therapy Clinical Swallow Evaluation SERVICE DATE: 07/07/2019 SERVICE TIME: 1315 to 1330 ROOM: [place] [address] Nursing Recommendations: See swallow guide posted in [...] oropharyngeal phase Interventions Provided: Clinical Swallow Evaluation (59893) $ Clinical Swallow Evaluation (40440) Billed Units: 1 unit Total Treatment Time [...] for this therapy evaluation/treatment. SIGNATURE: Daria Mccauley CCC-SOFTWARE TEST ANALYST PATIENT NAME: Elias Shah DATE: July 07, 2019 TIME: 1:46 PM Normal [facility] ECG COMPLETEon 07-06-2019 ECG COMPLETE NAME : ELIAS SHAH PID : [id number] : 1940 Gender : Male Race : ORD : [id number] Procedure Date : Jul 06 2019 16:54:40 Edit Date : Jul 07 2019 08:49:52 Diagnosis:ATRIAL FIBRILLATION WITH RAPID VENTRICULAR RESPONSE LEFT AXIS DEVIATION INFERIOR INFARCT (CITED ON OR BEFORE 06-JUL-2019) ANTERIOR INFARCT (CITED ON OR BEFORE 06-JUL-2019) ST & T WAVE ABNORMALITY, CONSIDER LATERAL ISCHEMIA ABNORMAL ECG WHEN COMPARED WITH ECG OF 06-JUL-2019 06:19, SERIAL CHANGES OF ANTERIOR INFARCT PRESENT Confirmed by MD CHUNG, ABDELRAHMAN ([id number]) on 07/07/2019 8:49:48 AM Ventricular Rate : 126 BPM Atrial Rate : 122 BPM QRS Duration : 104 ms Q-T Interval : 340 ms QTC Calculation(Bazett) : 492 ms R [place] : -39 degrees T [place] : 142 degrees Test Reason : Arrhythmia Location : 6 : [place] [address] Overread By : MD WILKES ANUBHAV Edited By : MD WILKES ANUBHAV Referred By : WAYNE RIVERS Acquired by : EDUARDO LEONE [facility] ECG COMPLETE NAME : ELIAS SHAH PID : [id number] : 1940 Gender : Male Race : ORD : [id number] Procedure Date : Jul 06 2019 06:19:49 [...] VENTRICULAR PACEMAKER Confirmed by MD WILKES ANUBHAV ([id number]) on 07/06/2019 1:42:11 PM Ventricular Rate : 136 BPM Atrial Rate : 96 BPM QRS Duration : 100 ms Q-T Interval : 336 ms QTC Calculation(Bazett) : 505 ms R [place] : -40 degrees T [place] : 132 degrees Test Reason : Arrhythmia Location : 6 : [place] [address] Overread By : MD WILKES ANUBHAV Edited By : MD WILKES ANUBHAV Referred By : WAYNE RIVERS Acquired by : LUCY DALTON [facility] NURSING PROGon 07-06-2019 NURSING PROG HNO ID: [id number] Author: Earline (Rn) AGUSTO Celaya Service: Nursing [...] l00's and BP remains stable. See Flowsheet. [facility] PROGRESSon 07-06-2019 PROGRESS HNO ID: [id number] Author: Bhanu Miranda MD Service: Urology Author Type: Resident Type: Progress [...] PGY-2 July 06, 2019 6:12 PM Pager: [phone] [facility] PROGRESS HNO ID: [id number] Author: Marlon Millan (Pa) Service: Cardiovascular Surgery Author Type: Physician Die Tripper Type: Progress Notes Filed: 07/06/2019 5:20 PM Note Text: CARDIOTHORACICSURGERY PROGRESS NOTE SERVICE DATE: 07/06/2019 SERVICE TIME: 5:00 PM SUBJECTIVE: I was called by RN re: arrhythmia. Patient has history of paroxysmal afib and earlier this AM developed atrial fibrillation with RVR. PO metoprolol increases during AM rounds. OBJECTIVE: Medication drips: Zach at 10 mcg Vitals: HR 110-130's, SBP 120-130's (On Zach), SpO2 97% on 2L NC Tele: AFIB RVR with approximately 10 beat runs of NSVT. Pt is currently asymptomatic. ASSESSMENT/ PLAN: 1) Afib RVR 2) NSVT -Stop Zach -Metoprolol IV 5 mg x 3 -Increase metoprolol to 50 BID -Magnesium 2 g -EKG -STAT BMP -If patient becomes hypotensive, will start amiodarone without bolus. Plan shared with Dr. Rivers and AGUSTO Patten. Time spent coordinating patient care: 18 minutes SIGNATURE: Marlon Millan PA-C PATIENT NAME: Elias Shah DATE: July 06, 2019 TIME: 5:00 PM PAGER/CONTACT #: [phone] [phone] [facility] PROGRESS HNO ID: [id number] Author: Marlon Dubon Jr. Service: Critical Care [...] HERNIA 12/04/2018 after bowel perforation done at [facility] Dr. Young Social History Socioeconomic History Marital [...] file Gets together: Not on file Attends scientology service: Not on file Active member of [...] per 24 hour Intake 9290 ml Output 93832 ml Net -765 ml MEDICATIONS Current Facility-Administered Medications Medication Dose Route Frequency - PHENYLephrine iv infusion 10 mg in NaCl 0.9% 250 mL (ZACH-SYNEPHRINE) 20-200 mcg/min INTRAVENOUS CONTINUOUS - ferrous sulfate [...] July 06, 2019 TIME: 3:36 PM Normal [facility] PROGRESS HNO ID: [id number] Author: Oc Gustafson (Pa) Service: Cardiac Surgery Author Type: Physician Die Tripper Type: Progress Notes Filed: 07/06/2019 12:04 PM [...] per 24 hour Intake 9155 ml Output 55033 ml Net -960 ml TELEMETRY: sinus tachycardia [...] tube have been removed. ?Right internal jugular [place]-Ale catheter noted with tip in the pulmonary [...] atorvastatin 40, Metoprolol 25 BID -Still on Zach -Pain control with orals and morphine -Post [...] July 06, 2019 TIME: 9:15 AM PAGER/CONTACT #:[phone] ETX [phone] [facility] PROGRESS HNO ID: [id number] Author: Abraham Lorenzo Service: Urology Author Type: [...] per 24 hour Intake 9155 ml Output 45720 ml Net -995 ml Physical Exam: General: [...] 7.346 (L) 7.350 - 7.450 Final Specific [place], Ur Date Value Ref Range Status 06/27/2019 [...] PGY-2 July 06, 2019 7:32 AM Pager: [phone] Attending Note I evaluated the patient and personally participated in the simmons components. I agree with the resident's findings and plan as documented and have discussed the case and management of the patient's care with the resident. Signature: Abraham Lorenzo DO, MBA Date: 07/06/2019 Time: 10:19 AM Normal [facility] PROGRESS HNO ID: [id number] Author: Jim Castro DO Service: Cardiac Surgery [...] with beta blockade. Will continue beta leyda. Zach and volume for pressure support.Avoid transfusion for now. Start Iron/folate/Vit C. Remove chest tubes. Mobilize. Farley to stay in for hematuria; managed per . Signature: Wayne Rivers MD Date: 07/06/2019 Time: [...] 07/06/2019 0400 Gross per 24 hour Intake 65522 ml Output 54530 ml Net -1239 ml TELEMETRY: Afib with RVR PHYSICAL EXAM: General: Well developed and well nourished appearance. Mild distress. Skin: No rash on chest, arms or legs. Warm, dry. Head/Eyes: Sclera clear, normal conjunctiva. EOMI. Mouth/Pharynx: Teeth: Fair dentition. No lesions. Neck: No JVD. Supple. R IJ [place] Ale catheter Lungs: Unlabored breathing on ventilator [...] NS @50cc/h - Wean pressors as tolerated, nitro/zach PRN. Zach back on this AM. - Mediastinal/chest tubes [...] 2019 TIME: 6:05 AM PAGER/CONTACT #: [phone] Normal [facility] THERAPY NTon 07-06-2019 THERAPY NT HNO ID: [id number] Author: Crystal GusmanOtr/Carleen Berrios Service: Occupational Therapy Author Type: Occupational Therapist Type: Therapy (PT/OT/Speech/Resp) Filed: 07/06/2019 4:11 PM Note Text: Occupational Therapy Evaluation SERVICE DATE: 07/06/2019 SERVICE TIME: 1345 to 1355 ROOM: [id number] Recommended Discharge Disposition: Subacute/SNF Recommended Discharge Disposition [...] and Awareness Interventions Provided: Evaluation $ Evaluation-Moderate (48541) Billed Units: 1 unit OT Evaluation Moderate [...] Environment Patient Lives With: Family(sister) 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 SIGNATURE: ERIC Montague/L DATE: July 06, 2019 TIME: 4:11 PM Normal [facility] THERAPY NT HNO ID: [id number] Author: Misa GusmanPtSachin Felipe Service: Physical Therapy Author Type: Physical Therapist Type: Therapy (PT/OT/Speech/Resp) Filed: 07/06/2019 2:51 PM Note Text: Physical Therapy Evaluation SERVICE DATE: 07/06/2019 SERVICE TIME: 1350 to 1415 ROOM: [place] [address] Recommended Discharge Disposition: Subacute/SNF Recommended Discharge Disposition [...] Patient TREATMENT INTERVENTIONS: Interventions Provided: Evaluation;Gait Training (89409) $ Evaluation-Moderate (62940) Billed Units: 1 unit History and examination of body systems see assessment section above. This patient?s clinical presentation is evolving. The patient required a moderate complexity evaluation. Gait Training (49200) Treatment Minutes: 8 1 unit Skilled Intervention(s): [...] LAD, Vein>ramus, Aortic valve replacement 23mm [place] Trifecta Bioprosthetic Valve, Exclusion of Left atrial appendage, endoscopic vein harvesting Reason for Physical Therapy Consult : eval and treat Relevant Past Medical History: aortic stenosis, anemia, afib, impaired cognition Patient Report: Patient confused. Woken from nap, alertness improves throughout session. agreeable to physical therapy. RN present. 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 Author Type: Registered [...] Current Advance Directive: Health Care Power of Technician Support Engineer;Living Will In Chart: Yes Up To Date [...] Walker Has the Patient Been in a Senior Care Facility in the Past 30 days? No SOCIAL: Living Arrangement: Home Lives With: sister Financial Resources: Retired Primary Contact: Extended Emergency Contact Information Primary Emergency Contact: Amalia Zamora Relation: Sister Supportive: Yes Other Important Patient Contacts: None Caregiver Assessment: Caregiver is ready, willing and able to meet the patient's needs as recommended by the inter-professional team? Yes Patient's transition needs and plan for meeting these needs: home with sister and [facility] Does the patient have an acute stroke diagnosis, or has the patient had a stroke during this admission? No Medication Adherence: I am convinced of the importance of my prescription medication: Agree completely - 0 I worry that my prescription medication will do more harm than good to me Disagree completely - 0 I feel financially burdened by my ear-zk-cjlqlh expenses for my prescription medication: Disagree completely [...] Needs: None FREEDOM OF CHOICE EXPLAINED: Yes HHC Financial Disclosure Provided Preference: [facility] POTENTIAL TRANSITION PLANS Home Home Care Met with pt, explained CM role. 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 Discussed post CABG disch needs. Planis home with sister's assist. Agreeable to [facility] - referral created. SIGNATURE: Imelda Rizvi RN PATIENT NAME: Elias Shah DATE: July 05, 2019 TIME: 3:01 PM PAGER/CONTACT #: [phone] [facility] ECG COMPLETEon 07-05-2019 ECG COMPLETE NAME : ELIAS SHAH PID : [id number] : 1940 Gender : Male Race : ORD : [id number] Procedure Date : Jul 05 2019 04:46:58 Edit Date : Jul 05 2019 08:38:13 Diagnosis:AV dual-paced rhythm ABNORMAL ECG WHEN COMPARED WITH ECG OF 04-JUL-2019 15:30, VENT. RATE HAS INCREASED BY 63 BPM Confirmed by MD CHUNG, ABDELRAHMAN ([id number]) on 07/05/2019 8:38:12 AM Ventricular Rate : 139 BPM Atrial Rate : 139 BPM QRS Duration : 36 ms Q-T Interval : 170 ms QTC Calculation(Bazett) : 258 ms R [place] : 88 degrees T [place] : -58 degrees Test Reason : Post-OP Location : 6 : [place] [address] Overread By : MD CHUNG,ABDELRAHMAN Edited By : MD CHUNG,ABDELRAHMAN Referred By : WAYNE RIVERS Acquired by : SAÚL HOWARD [facility] NUTRITIONon 07-05-2019 NUTRITION HNO ID: [id number] Author: Teresa (Passenger Solicitor) Marion Service: Nutrition Therapy Author Type: Automobile Engine Assembler Type: Nutrition Filed: 07/05/2019 2:33 PM Note Text: Attestation signed by Yasmine Sanchez RD at 07/05/2019 3:04 PM NUTRITION THERAPY: TEACHING DIETITIAN NOTE OF PERSONAL INVOLVEMENT OF CARE. I have reviewed and agree with the assessment as documented by the internal controls specialist. I have discussed the case and management of the patient?s nutrition therapy with the internal controls specialist. SIGNATURE: Yasmine Sanchez RD, LD DATE: July 05, 2019 TIME: 3:04 PM [...] assess if diet can be advanced. -Recommend Heart Healthy diet when able. Collaborated with AGUSTO [...] Resting Metabolic Rate: 1712 Estimated kilocalorie needs: 9010-7666 kilocalories determined by 25-30 kcal/kg Estimated protein needs: 115-145 grams determined by 1.2-1.5 g/kg Dosing weight Estimated fluid needs: 5284-8527 milliliters based on 1 mL per kcal [...] Assess/15 min 3 units SIGNATURE: Teresa Schultz, Passenger Solicitor PATIENT NAME: Elias Shah DATE: July 05, 2019 TIME: 9:28 AM PAGER: [phone] [facility] PROGRESSon 07-05-2019 PROGRESS HNO ID: [id number] Author: Marlon Millan (Pa) Service: Cardiovascular Surgery Author Type: Physician Die Tripper Type: Progress Notes Filed: 07/05/2019 2:58 PM [...] 07/05/2019 1200 Gross per 24 hour Intake 56700.1 ml Output 66983 ml Net 1573.1 ml TELEMETRY: Paced with [...] management with ASA 162, atorvastatin 40 -s/p Zach -Off pacing -EF 60% 04/2019 -Possibly start [...] 05, 2019 TIME: 2:23 PM PAGER/CONTACT #: [phone] ETX [phone] [facility] PROGRESS HNO ID: [id number] Author: Earline (Rn) AGUSTO Celaya Service: Nursing Author Type: Registered Nurse Type: Progress Notes Filed: 07/05/2019 12:46 PM Note Text: 1105: pt extubated to 4L nc without distress. [facility] PROGRESS HNO ID: [id number] Author: Bhanu Miranda MD Service: Urology Author Type: Resident Type: Progress [...] 07/05/2019 0700 Gross per 24 hour Intake 92551.1 ml Output 28753 ml Net 1644.1 ml Physical Exam: General: [...] 7.346 (L) 7.350 - 7.450 Final Specific [place], Ur Date Value Ref Range Status 06/27/2019 [...] PGY-2 July 05, 2019 11:23 AM Pager: [phone] [facility] PROGRESS HNO ID: [id number] Author: Marlon Dubon Jr. Service: Critical Care [...] HERNIA 12/04/2018 after bowel perforation done at [facility] Dr. Young Social History Socioeconomic History Marital [...] file Gets together: Not on file Attends scientology service: Not on file Active member of [...] 07/05/2019 0700 Gross per 24 hour Intake 29589.1 ml Output 47636 ml Net 1644.1 ml MEDICATIONS Current Facility-Administered [...] 10 mg in NaCl 0.9% 250 mL (ZACH-SYNEPHRINE) 25-300 mcg/min INTRAVENOUS CONTINUOUS - NaCl 0.9% [...] July 05, 2019 TIME: 10:30 AM Normal [facility] PROGRESS HNO ID: [id number] Author: Jim Castro DO Service: Cardiac Surgery [...] 07/05/2019 0400 Gross per 24 hour Intake 18420.1 ml Output 22651 ml Net 454.1 ml TELEMETRY: A-V sequential pacing PHYSICAL EXAM: General: Well developed and well nourished appearance. No acute distress. Skin: No rash on chest, arms or legs. Warm, dry. Head/Eyes: Sclera clear, normal conjunctiva. EOMI. Mouth/Pharynx: Teeth: Fair dentition. No lesions. Neck: No JVD. Supple. R IJ [place] Ale catheter Lungs: Unlabored breathing on ventilator [...] NS @50cc/h - Wean pressors as tolerated, nitro/zach PRN. Zach at 10mcg/min this AM - Mediastinal/chest tubes [...] 2019 TIME: 6:11 AM PAGER/CONTACT #: [phone] Normal [facility] PROGRESS HNO ID: [id number] Author: Joel (Rn) AGUSTO Resendez Service: Critical Care Author Type: Registered Nurse Type: Progress Notes Filed: 07/05/2019 4:22 AM Note Text: HAND H 1 hour after completion of PRBC infusion 6.[address] Rivers paged twice. RN reported lab to Dr. Kincaid. See new orders. Normal [facility] THERAPY NTon 07-05-2019 THERAPY NT HNO ID: [id number] Author: Crystal GusmanOtr/Carleen Berrios Service: Occupational Therapy Author Type: Occupational Therapist Type: Therapy (PT/OT/Speech/Resp) Filed: 07/05/2019 11:54 AM Note Text: OCCUPATIONAL THERAPY MISSED VISIT SERVICE DATE: 07/05/2019 SERVICE TIME: 1154 to 1154 ROOM: [place] [address] Attempted Evaluation. Patient not seen due to Illness(intubted). Will continue to follow as able and appropriate. SIGNATURE: Crystal Berrios OTR/Carroll PATIENT NAME: Elias Shah DATE: July 05, 2019 TIME: 11:54 AM Normal [facility] THERAPY NT HNO ID: [id number] Author: Nohemi Meehan Service: Physical Therapy Author Type: Physical Therapist Type: Therapy (PT/OT/Speech/Resp) Filed: 07/05/2019 8:54 AM Note Text: PHYSICAL THERAPY MISSED VISIT SERVICE DATE: 07/05/2019 SERVICE TIME: 08 to 852 ROOM: [place] [address] Attempted Evaluation. Patient not seen due to Illness(intubated). Will continue to follow patient as able. SIGNATURE: Nohemi Meehan PT PATIENT NAME: Elias Shah DATE: July 05, 2019 TIME: 8:54 AM Normal [facility] ANES Namita 07-04-2019 ANES POST HNO ID: [id number] Author: Dion Monroe Service: Anesthesiology Author Type: Physician Type: Anesthesia PostOp Filed: 07/04/2019 7:58 PM Note Text: POST ANESTHESIA EVALUATION NOTE SERVICE DATE: 07/04/2019 SERVICE TIME: 7:58 PM : 1940 Vitals: 07/04/19 1615 07/04/19 1630 07/04/19 1639 07/04/19 1645 Temp: (!) 32.2 ?C (90 ?F) (!) 34.9 ?C (94.8 ?F) (!) 32.5 ?C (90.5 ?F) (!) 33.1 ?C (91.6 ?F) 07/04/19181407/04/19182907/04/19184407/04/19 1900 Arterial BP 1: 129/58 123/54 138/62 128/57 BP: 07/04/19181407/04/19182907/04/19184407/04/19 1900 Pulse: 70 70 70 70 07/04/19181407/04/19 18307/04/19 18407/04/19 1900 Resp: 14 14 16 17 07/04/19181407/04/19182907/04/19184407/04/19 1900 SpO2: 100% 100% 100% 100% Validated [...] 04, 2019 TIME: 7:58 PM PAGER/CONTACT #: [phone] [facility] ANES PREOPon 07-04-2019 ANES PREOP HNO ID: [id number] Author: Burak Gamez Service: ? Author Type: [...] HERNIA 12/04/2018 after bowel perforation done at [facility] Dr. Young FAMILY HISTORY Problem Relation Age [...] RELIEF) 50 mcg/actuation nasal spray Use 1 [place] in each nostril once daily. Cholecalciferol, Vitamin [...] mL (ANCEF) 2 g INTRAVENOUS ONCE Oc Roa) - vancomycin iv piggyback 1 g in D5W 200 mL (VANCOCIN) 1 g INTRAVENOUS ONCE Oc Roa) [place] heparin 3,000 Units in NaCl 0.9% 500 mL irrigation 3,000 Units IRRIGATION ONCE Wayne Constantino [place] - PHENYLephrine 20 mg in NaCl 0.9% 250 mL (ZACH-SYNEPHRINE) 25-300 mcg/min INTRAVENOUS ONCE Wayne A [place] - aminocaproic acid 10 g in NaCl 0.9% 250 mL (AMicAR) 1 g/hr INTRAVENOUS ONCE Wayne A [place] - dexmedetomidine 400 mcg in NaCl 0.9% 100 mL (PRECEDEX) 0.2-0.7 mcg/kg/hr INTRAVENOUS ONCE Wayne A Layonatanrra - EPINEPHrine 4 mg in NaCl 0.9% [...] 10 mg in NaCl 0.9% 250 mL (ZACH-SYNEPHRINE) 0-100 mcg/min INTRAVENOUS ONCE Wayne Constantino [place] - dextrose 50 g, insulin regular [...] July 04, 2019 TIME: 7:33 AM CSN: [id number] [facility] BRIEF OP NOTon 07-04-2019 BRIEF OP NOT HNO ID: [id number] Author: Jim Castro DO Service: Cardiac Surgery [...] BRIEF OPERATIVE / PROCEDURE NOTE LOG ID: [id number] SURGERY/PROCEDURE DATE: 07/04/2019 INCISION/PROCEDURE START TIME: 8:32 AM INCISION CLOSE/PROCEDURE END TIME: 1:40 PM SURGEON(S)/PROCEDURAL IST(S) AND LINE PATROLLER(S): Surgeon(s) and Role: * Wayne Rivers - Primary * Jim Castro DO - Resident - Assisting Physician Die Tripper: Aubere Raman (Pa) Interlocking And Signal Mechanic: Joellen Rivas SA SURGERY/PROCEDURE(S): Two vessel cardiac [...] 2019 TIME: 2:06 PM PAGER/CONTACT #: [phone] [facility] CONSULTon 07-04-2019 CONSULT HNO ID: [id number] Author: Bhanu Miranda MD Service: Urology Author [...] HERNIA 12/04/2018 after bowel perforation done at [facility] Dr. Young ALLERGIES: ALLERGIES No Known Allergies [...] RELIEF) 50 mcg/actuation nasal spray Use 1 [place] in each nostril once daily. Disp: Rfl: [...] 07/04/2019 7.410 7.350 - 7.450 Final Specific [place], Ur Date Value Ref Range Status 06/27/2019 [...] Bhanu Miranda MD 07/04/2019 7:07 PM Normal [facility] ECG COMPLETEon 07-04-2019 ECG COMPLETE NAME : ELIAS SHAH PID : [id number] : 1940 Gender : Male Race : ORD : [id number] Procedure Date : Jul 04 2019 15:30:55 Edit Date : Jul 05 2019 08:38:41 Diagnosis:AV dual-paced rhythm with prolonged AV conduction ABNORMAL ECG WHEN COMPARED WITH ECG OF 04-JUL-2019 14:32, VENT. RATE HAS INCREASED BY 6 BPM Confirmed by MD CHUNG, ABDELRAHMAN ([id number]) on 07/05/2019 8:38:40 AM Ventricular Rate : 76 BPM Atrial Rate : 76 BPM P-R Interval : 368 ms QRS Duration : 38 ms Q-T Interval : 374 ms QTC Calculation(Bazett) : 420 ms R [place] : 90 degrees T [place] : -30 degrees Test Reason : Arrhythmia Location : 6 : ICU 322 Overread By : MD WILKES ANUBHAV Edited By : MD WILKES ANUBHAV Referred By : WAYNE RIVERS Acquired by : ELKE DUMONT [facility] ECG COMPLETE NAME : ELIAS SHAH PID : [id number] : 1940 Gender : Male Race : ORD : [id number] Procedure Date : Jul 04 2019 14:32:24 Edit Date : Jul 05 2019 08:37:21 Diagnosis:Atrial-sens ed ventricular-paced rhythm with prolonged AV conduction ABNORMAL ECG NO PREVIOUS ECGS AVAILABLE Confirmed by MD WILKES ANUBHAV ([id number]) on 07/05/2019 8:37:20 AM Ventricular Rate : 70 BPM Atrial Rate : 70 BPM P-R Interval : 352 ms QRS Duration : 32 ms Q-T Interval : 368 ms QTC Calculation(Bazett) : 397 ms R [place] : 90 degrees T [place] : -43 degrees Test Reason : Post-OP Location : 6 : CVICU 3229 Overread By : MD WILKES ANUBHAV Edited By : MD WILKES ANUBHAV Referred By : WAYNE RIVERS Acquired by : [id number], Normal [facility] HISTORY PHYSICALon HISTORY PHYSICAL HNO ID: [id number] Author: Jim Castro DO Service: Cardiac Surgery [...] July 04, 2019 TIME: 6:45 AM PAGER: [phone] Normal [facility] NURSING PROGon 07-04-2019 NURSING PROG HNO ID: [id number] Author: Stephany (Rn) AGUSTO Peterson Service: ? Author Type: Registered Nurse Type: Nursing Progress Note Filed: 07/04/2019 6:52 PM Note Text: 1800 Discussed extubation plan with Elke Buckley RT in room. PLan is to complete weaning parameters at 1830. 1830 RT paged to complete weaning paramters. Stephany Peterson, RN 1850 RT paged to complete weaning parameters. Stephany Peterson RN [facility] OPERATIVE NOon 07-04-2019 OPERATIVE NO HNO ID: [id number] Author: Wayne Rivers Service: Cardiac Surgery Author Type: Physician Type: Operative Report Filed: 07/05/2019 6:23 PM Note Text: [facility] - Operative Report ELIAS SHAH : 1940 AGE: 79. SEX: M PATIENT TYPE: I HOSP SVC: [facility]CA LOCATION: [id number] ATTENDING PHYSICIAN: WAYNE RIVRES [facility] NUMBER: [id number] DATE OF SURGERY/PROCEDURE: 07/04/2019 INCISION/PROCEDURE START TIME: 8:32 AM INCISION CLOSE/PROCEDURE END TIME: 1:40 PM PREOPERATIVE DIAGNOSIS: Multivessel coronary disease; severe aortic stenosis; paroxysmal atrial fibrillation. POSTOPERATIVE DIAGNOSIS: Multivessel coronary disease; severe aortic stenosis; paroxysmal atrial fibrillation. SURGEON: Wayne Rivers MD LINE PATROLLER: Ms. Raman and Ms. Rivas. SURGERY/PROCEDURE: Aortic [...] in layers with absorbable suture. The sternal carpet tile layer was placed in the wound. A pericardial [...] then returned to CV-ICU in good condition. MD JUVENAL Mendez:[id number] /[id number] Normal [facility] PROGRESSon 07-04-2019 PROGRESS HNO ID: [id number] Author: Joel (Rn) AGUSTO Resendez Service: Critical Care Author Type: Registered Nurse Type: Progress Notes Filed: 07/04/2019 8:16 PM Note Text: Weaning parameters not met. NIF -12 and pt very drowsy. Dr. Kincaid notified. Plan is to recheck parameters at 2100 and re evaluate for extubation. [facility] PROGRESS HNO ID: [id number] Author: Marlon Dubon Jr. Service: Critical Care [...] HERNIA 12/04/2018 after bowel perforation done at [facility] Dr. Young Social History Socioeconomic History Marital [...] file Gets together: Not on file Attends scientology service: Not on file Active member of [...] July 04, 2019 TIME: 2:38 PM [facility] CONSULT PROGon 06-28-2019 CONSULT PROG HNO ID: [id number] Author: Higinio Bacon Service: Cardiac Surgery Author Type: Nurse [...] 2.42% CABG/AVR CARE TEAM: Cardiac Surgeon: Carlitos Bobbin Sorter: Primo PCP: Regla Other Providers: Pre-Op Testing: [...] with VKA drugs, such as warfarin, the [place] [employer] 2012 Guideline recommends [...] to 3.5 target INR of 3). [place] COPELAND, et al. Chest 2012; 141:7S-47S Maria Victoria ORTIZ et al. JACC 2017; 70: 252-289 Anemia Evaluation: Anemic: Yes Accept Blood: Yes Blood Conservation Committee: No Ferritin: N/A FE+TIBC: N/A Fe Sat: N/A FOBT: N/A Anemia Treatment: Oral Iron UA pH, Urine Date Value Ref Range Status 06/27/2019 6.0 5.0 - 8.0 Final Specific [place], Ur Date Value Ref Range Status 06/27/2019 [...] Nephrology No Vascular surgery No Other No Higinio Bacon APRN.KEE [facility] Nii 06-27-2019 CNOV Office Visit (AGVASACC) LEONID,ELIAS K ([id number]) 1940 M Date Time Provider Department 06/27/19 1:00 PM HIGINIO BACON During your visit today, we recorded the following information about you: Pulse Respiration Blood pressure Weight 63/minute 20/minute 152/78 90.7 kg Height 1.829 m Higinio Bacon APRN.CNP 06/28/2019 1:42 PM Addendum CARDIOTHORACIC [...] Normal sinus rhythm. - CAD of the rosebud vessel. No interventions. Stable with no angina [...] HERNIA 12/04/2018 after bowel perforation done at [facility] Dr. Young FAMILY HISTORY Problem Relation Age [...] RELIEF) 50 mcg/actuation nasal spray Use 1 [place] in each nostril once daily. loperamide (IMODIUM) [...] (primary diagnosis) 2. Coronary artery disease involving rosebud heart, angina presence unspecified, unspecified vessel or [...] April was 1.13, repeat is pending today Higinio Bacon APRN.CNP Tests/Labs Ordered: 1. CBC 2. CMP 3. HbA1c (average sugar test) 4. Lipids 5. Urinalysis 6. MRSA 7. Incentive spirometry 8. PT/INR 9. Magnesium These findings will be communicated back to the requesting provider electronically. SIGNATURE: Higinio Bacon APRN.CNP PATIENT NAME: Elias Shah DATE: June 27, 2019 TIME: 10:51 AM PAGER/CONTACT #: [phone] Higinio Bacon APRN.CNP 06/27/2019 2:06 PM Addendum [facility] Pre-Admission Patient Instruction You are [...] at home. Remove all make-up and nail english before admission. We need to check your [...] including the morning of surgery. Start 06/27/2019 Higinio Bacon APRN.KEE June 27, 2019 Higinio Bacon APRN.KEE 06/27/2019 2:23 PM Signed [facility] Adult Cardiac [...] Allergies) Date Reviewed: 06/27/2019 Reviewed by: Brook Andersen) Zahra - Fully Assessed Reason for Visit: Pre-Op Teaching [134] Cmt: sched for CABG / AVR on 07/04/19 Reason For Visit History Recorded Primary Visit Diagnosis:Aortic valve stenosis, etiology of cardiac valve disease unspecified [I35.0] Other Visit Diagnoses:Coronary artery disease involving rosebud heart, angina presence unspecified, unspecified vessel or [...] FLONASE ALLERGY RELIEF 50 MCG* Use 1 [place] in each nostril o* LOPERAMIDE 2 MG [...] INVALID FOR* Other instructions from your clinician: [facility] Pre-Admission Patient Instruction You are scheduled [...] at home. Remove all make-up and nail english before admission. We need to check your [...] including the morning of surgery. Start 06/27/2019 Higinio Bacon APRN.CNP June 27, 2019 Prescriptions ordered [...] Course of therapy completed Encounter Status:Closed by HIGINIO BACON CNP on 06/27/19 [facility] HISTORY PHYSICALon 9 HISTORY PHYSICAL HNO ID: [id number] Author: Higinio Bacon Service: ? Author Type: Nurse Practitioner [...] Normal sinus rhythm. - CAD of the rosebud vessel. No interventions. Stable with no angina [...] HERNIA 12/04/2018 after bowel perforation done at [facility] Dr. Young FAMILY HISTORY Problem Relation Age [...] RELIEF) 50 mcg/actuation nasal spray Use 1 [place] in each nostril once daily. loperamide (IMODIUM) [...] (primary diagnosis) 2. Coronary artery disease involving rosebud heart, angina presence unspecified, unspecified vessel or [...] April was 1.13, repeat is pending today Higinio Bacon APRN.KEE Tests/Labs Ordered: 1. CBC 2. CMP 3. HbA1c (average sugar test) 4. Lipids 5. Urinalysis 6. MRSA 7. Incentive spirometry 8. PT/INR 9. Magnesium These findings will be communicated back to the requesting provider electronically. SIGNATURE: Higinio Bacon APRN.CNP PATIENT NAME: Elias Shah DATE: June 27, 2019 TIME: 10:51 AM PAGER/CONTACT #: [phone] [facility] PROGRESSon 06-27-2019 PROGRESS HNO ID: [id number] Author: Higinio Bacon Service: ? Author Type: Nurse Practitioner Type: Progress Notes Filed: 06/27/2019 2:23 PM Note Text: [facility]S Adult Cardiac Surgery Database Version 2.9 RISK SCORES Procedure: AVR + CAB Risk of Mortality: 2.422% Renal Failure: 2.127% Permanent Stroke: 1.782% Prolonged Ventilation: 8.378% DSW Infection: 0.164% Reoperation: 4.895% Morbidity or Mortality: 14.596% Short Length of Stay: 24.719% Long Length of Stay: 7.222% [facility] 06-20-[facility]AG[facility] ELIAS SHAH ([id number]) 1940 M Date Time Provider Department 06/20/19 HIGINIO BACON During your visit today, we recorded the following information about you: Ludivina Lawson 06/20/2019 10:55 AM Signed Patient's sister Amalia called in because the patient is scheduled for a presurgical appointment on 06/21/19. She is upset because they wanted to do all of that on 06/27/19 when they come see Higinio (which we have no record of) The patient comes from [place] and they don't want to Make two trips to [place] for the same reason. Amalia is not understanding what is going on and she's frustrated and would like to speak with Higinio at [phone] Higinio Bacon APRN.KEE 06/20/2019 11:09 AM Signed I called and spoke to Mrs Zamora. They do not need to come to the appointment on 06/21. That was scheduled in anticipation of TAVR. Mr Shah is not a TAVR candidate. He need CABG/AVR. This is scheduled 07/04. He has a PAT appointment with or 06/27 at 1 pm. She verbalized understanding and agreed to this plan. Higinio Bacon APRN.MAGAZINE PUBLISHER Allergies As of Date: 06/20/2019 (No Known [...] ridge* FLUTICASONE PROPIONATE 50 MCG* Use 1 [place] in each nostril o* LOPERAMIDE 2 MG [...] Encounter Status:Closed by LUDIVINA LAWSON on [facility]/20/[facility] Tele[facility] (AGVASACC) ELIAS SHAH ([id number]) 1940 M Date Time Provider Department 06/15/19 WAYNE RIVERS During your visit today, we recorded the following information about you: Lesley Santana 06/16/2019 8:38 AM Signed I have scheduled the patient for Coronary Artery Bypass Graft / Aortic Valve Repair on 07/04/19 at 7:30 am with an arrival time of 6 am PAT is 06/27/19 with Higinio at 1 pm No hold on Aspirin. Booklet mailed on 06/16/19 Allergies As of Date: 06/15/2019 (No Known Allergies) Date Reviewed: 05/25/2019 Reviewed by: Quinn (Agusto) AGUSTO Rodrigues - Fully Assessed Reason for Visit: Schedule Surgery [1330] Order(s):SURGICAL REQUEST - ELECTIVE [[id number]] Order #: [id number]: 1 Prescriptions as of 06/15/2019 Sig: ASPIRIN [...] ridge* FLUTICASONE PROPIONATE 50 MCG* Use 1 [place] in each nostril o* LOPERAMIDE 2 MG [...] Encounter Status:Closed by LESLEY SANTANA on 06/16/19 [facility] HOSPon 06-15-2019 HOSP Patient:Manav Shah estela K MRN: Height:6' 0(1.829 m) Weight:200 lb (90.719 [...] 20 mg in NaCl 0.9% 250 mL (ZACH-SYNEPHRINE) aminocaproic acid 10 g in NaCl 0.9% [...] 10 mg in NaCl 0.9% 250 mL (ZACH-SYNEPHRINE) dextrose 50 g, insulin regular human 10 [...] 51.0 40.1 Progress Notes (JALYN [facility]): Higinio Bacon, DIRECTOR LEARNING.MAGAZINE PUBLISHER 06/28/2019 1:42 PM Addendum CARDIOTHORACIC SURGERY CONSULT [...] Normal sinus rhythm. - CAD of the rosebud vessel. No interventions. Stable with no angina [...] HERNIA 12/04/2018 after bowel perforation done at [facility] Dr. Young FAMILY HISTORY Problem Relation Age [...] RELIEF) 50 mcg/actuation nasal spray Use 1 [place] in each nostril once daily. loperamide (IMODIUM) [...] (primary diagnosis) 2. Coronary artery disease involving rosebud heart, angina presence unspecified, unspecified vessel or [...] April was 1.13, repeat is pending today Higinio Bacon APRN.CNP Tests/Labs Ordered: 1. CBC 2. CMP 3. HbA1c (average sugar test) 4. Lipids 5. Urinalysis 6. MRSA 7. Incentive spirometry 8. PT/INR 9. Magnesium These findings will be communicated back to the requesting provider electronically. SIGNATURE: Higinio Bacon APRN.CNP PATIENT NAME: Elias Shah DATE: June 27, 2019 TIME: 10:51 AM PAGER/CONTACT #: [phone] Previous Version Higinio Bacon APRN.CNP 06/27/2019 2:06 PM Addendum [facility] Pre-Admission Patient Instruction You are scheduled [...] at home. Remove all make-up and nail english before admission. We need to check your [...] including the morning of surgery. Start 06/27/2019 Higinio Bacon APRN.KEE June 27, 2019 Previous Version Higinio Bacon APRN.CNP 06/27/2019 2:23 PM Signed STS [...] Lawson 06/20/2019 10:55 AM Signed Patient's sister Amalia called in because the patient is scheduled for a presurgical appointment on 06/21/19. She is upset because they wanted to do all of that on 06/27/19 when they come see Higinio (which we have no record of) The patient comes from [place] and they don't want to Make two trips to [place] for the same reason. Amalia is not understanding what is going on and she's frustrated and would like to speak with Higinio at [phone] Higinio Bacon APRN.MAGAZINE PUBLISHER 06/20/2019 11:09 AM Signed I called and spoke to Mrs Zamora. They do not need to come to the appointment on 06/21. That was scheduled in anticipation of TAVR. Mr Shah is not a TAVR candidate. He need CABG/AVR. This is scheduled 07/04. He has a PAT appointment with or 06/27 at 1 pm. She verbalized understanding and agreed to this plan. Higinio Bacon APRN.MAGAZINE PUBLISHER [facility] BRIEF OP NOTon 05-25-2019 BRIEF OP NOT HNO ID: [id number] Author: Roger Bone Service: Interventional Cardiology Author Type: Physician Type: Brief Op Note Filed: 05/25/2019 1:15 PM Note Text: CARDIAC CATHETERIZATION REPORT PATIENT NAME: Elias Shah SERVICE DATE: 05/25/2019 SERVICE TIME: 1:05 PM Bobbin Sorter: Roger Bone MD Attending: Roger Bone RECOMMENDATIONS: [...] DATE: May 25, 2019 TIME: 1:05 PM [facility] NURSING PROGon 05-25-2019 NURSING PROG HNO ID: [id number] Author: Quinn GusmanRn) AGUSTO Rodrigues Service: ? Author Type: Registered Nurse Type: Nursing Progress Note Filed: 05/25/2019 3:26 PM Note Text: Report to Sharon OLGUIN [facility] NURSING PROG HNO ID: [id number] Author: Quinn GusmanRn) AGUSTO Rodrigues Service: ? Author Type: Registered Nurse Type: Nursing Progress Note Filed: 05/25/2019 3:22 PM Note Text: Dr. Promise Bone aware of patient HR and blood pressure and advised okay to discharge when TR band is removed, no further orders given. [facility] PROGRESSon 05-25-2019 PROGRESS HNO ID: [id number] Author: Sharon GusmanRn) AGUSTO León Service: Nursing Author Type: Registered Nurse Type: Progress Notes Filed: 05/25/2019 4:19 PM Note Text: Upon removal of R-Band, patient's right radial site began to ooze bright red blood. Dressing changed and pressured applied by RN. Minimal drainage on bandage. Extra gauze dressing and tegaderm sent home with patient and instructed on what to do if bleeding occurs. [facility] HOSPon 05-13-2019 HOSP Patient:Manav Shah rd K [...] understanding. Instructions were as follows: -Arrive to [facility] Entrance May 25, 2019 at time assigned by [facility] golf course laborer staff in phone call 2:00 and 5:00 PM.. -Nothing by mouth after midnight evening prior. -With a sip of water on May 25, 2019 morning take: Aspirin 325mg along with usual BP meds Norvasc and Coreg -Labs to be done CBC, BMP - You must have someone drive you home from your procedure. -golf course laborer policy is pt not be alone first evening Office phone number provided for questions or concerns. Torin: [facility] veterinary laboratory technician notified. Ameena at [facility] veterinary laboratory technician notified of update on changing from Dr. Green to Dr. Bone as noted above. Torie Henriquez, RN Previous Version MICHAEL Kirkpatrick, [facility] 05/20/2019 10:03 AM Signed Patient has Medicare A AND B primary coverage so does not require prior authorization. We have started a new process to provide estimates to our patients for their upcoming appointment at [facility]. The purpose is to make you [...] for you. Martha Guillen Progress Notes ([facility]): Latisha Matthews RN 05/11/2019 1:23 PM Signed LM home recorder to return call to discuss scheduling heart cath. Office phone number provided. AGUSTO Peck RN 05/12/2019 9:15 AM Signed LM home recorder requesting return call. AGUSTO Peck, RN, RN 05/13/2019 1:06 PM Signed Patient scheduled for left heart cath, Peter, with Dr Olvera on Thursday, May 25, 2019Instructions reviewed. Questions answered. Patient verbalized understanding. Instructions were as follows: -Arrive to [facility] Entrance May 25, 2019 at time assigned by [facility] golf course laborer staff in phone call 2:00 -5:00 PM.. -Nothing by mouth after midnight evening prior. -With a sip of water on Saturday May 25, 2019 morning take: Aspirin 325mg along with usual BP meds- coreg and Norvasc -Labs to be done CBC, BMP - You must have someone drive you home from your procedure. -golf course laborer policy is pt not be alone first evening Office phone number provided for questions or concerns. Torin: [facility] veterinary laboratory technician notified. Normal [facility] CNOVon 05-11-2019 CNOV Office Visit (AGCARDPOB) ELIAS SHAH ([id number]) 1940 Date Time Provider Department 05/11/19 10:30 AM ESPINOZA BASS During your visit today, we recorded the following information about you: Pulse Respiration Blood pressure Weight 48/minute 16/minute 140/64 88.8 kg Height 1.829 m Rebecca Ballard CMA 05/11/2019 10:11 AM Signed Patient denies any cardiac complaints today. Rebecca Ballard [facility] Espinoza Bass MD 05/11/2019 4:06 PM Signed Chief Complaint: [...] HERNIA 12/04/2018 after bowel perforation done at [facility] Dr. Young FAMILY HISTORY Problem Relation Age [...] RELIEF) 50 mcg/actuation nasal spray Use 1 [place] in each nostril once daily. loperamide (IMODIUM) [...] Allergies Cardiac Testing Transesophageal echocardiogram performed in [place] in February 2019: Ejection fraction 65%, severe restriction of the aortic valve with moderate to severe aortic stenosis with a peak gradient of 52 mmHg, mean gradient of 28 mmHg. Transthoracic [facility]: Ejection fraction 68%, peak and mean gradients [...] heart catheterization and coronary angiogram performed at [place] which reflected mild coronary artery disease, but [...] - ECHO 2. 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 Rebecca Ballard [facility] Prescriptions ordered this encounter Disp Refills Start End PERFLUTREN LIPID MICROSPHERES 1.1 MG* 1.3 * 0 05/11/2019 05/10/2020 Class: In Office Route: INTRAVENOUS Sig: Inject 1.3 mL intravenously as directed. Disposition: Return in about 1 month (around 06/10/2019). 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 ACETAMINOPHEN 500 MG CAPSULE Take 2 capsules by mouth twic* AMLODIPINE 5 MG TABLET Take 5 mg by mouth once daily. CARVEDILOL 25 MG TABLET Take 25 mg by mouth three ridge* FLUTICASONE PROPIONATE 50 MCG* Use 1 [place] in each nostril o* LOPERAMIDE 2 MG [...] of Service: EST PATIENT VISIT LEVEL 1 [39241] Encounter Status:Closed by WAYNE RIVERS MD on 05/17/19 [facility] Oswaldo 05-11-2019 CNPN Telephone (AGCARDPOB ) LEONIDELIAS ([id number]) 1940 M Date Time Provider Department 05/11/19 ESPINOZA BASS AGCARDPOB During your visit today, we recorded the following information about you: Latisha Matthews RN 05/11/2019 1:23 PM Signed LM home recorder to return call to discuss scheduling heart cath. Office phone number provided. AGUSTO Peck RN 05/12/2019 9:15 AM Signed LM home recorder requesting return call. AGUSTO Peck, RN, RN 05/13/2019 1:06 PM Signed Patient scheduled for left heart cath, Peter, with Dr Olvera on Thursday, May 25, 2019Instructions reviewed. Questions answered. Patient verbalized understanding. Instructions were as follows: -Arrive to [facility] Entrance May 25, 2019 at time assigned by [facility] golf course laborer staff in phone call 2:00 -5:00 PM.. -Nothing by mouth after midnight evening prior. -With a sip of water on Saturday May 25, 2019 morning take: Aspirin 325mg along with usual BP meds- coreg and Norvasc -Labs to be done CBC, BMP - You must have someone drive you home from your procedure. -golf course laborer policy is pt not be alone first evening Office phone number provided for questions or concerns. Torin: [facility] veterinary laboratory technician notified. Allergies As of Date: 05/11/2019 (No [...] ridge* FLUTICASONE PROPIONATE 50 MCG* Use 1 [place] in each nostril o* LOPERAMIDE 2 MG CAPSULE Take 2 mg by mouth once daily. CHOLECALCIFEROL (VITAMIN D3) * Take 5,000 Units by mouth onc* FERROUS SULFATE 325 MG (65 MG* Take 325 mg by mouth daily wi* ROSUVASTATIN 5 MG TABLET Take 5 mg by mouth once daily. Problem List As Of Date: 05/11/2019 (None) Encounter Status:Closed by TORIE HENRIQUEZ on 05/13/19 [facility] HISTORY PHYSICALon HISTORY PHYSICAL HNO ID: [id number] Author: Espinoza Bass Service: ? Author Type: [...] HERNIA 12/04/2018 after bowel perforation done at [facility] Dr. Young FAMILY HISTORY Problem Relation Age [...] RELIEF) 50 mcg/actuation nasal spray Use 1 [place] in each nostril once daily. loperamide (IMODIUM) [...] Allergies Cardiac Testing Transesophageal echocardiogram performed in [place] in February 2019: Ejection fraction 65%, severe restriction of the aortic valve with moderate to severe aortic stenosis with a peak gradient of 52 mmHg, mean gradient of 28 mmHg. Transthoracic echocardiogram performed in [facility] [place]: Ejection fraction 68%, peak and mean gradients [...] heart catheterization and coronary angiogram performed at [place] which reflected mild coronary artery disease, but [...] - ECHO 2. 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 Author Type: [...] further recommendations to follow. Wayne Rivers MD Normal [facility] HOSPon 04-27-2019 HOSP Patient:Manav Shah rd K MRN: Height:6' 0(1.829 m) Weight:196 lb (88.905 [...] 4:16 PM Signed I did speak with Amalia Zamora pts sister who returned my call for [...] Appointment information given to Mr. Shah's sister Amalia Zamora. Also request sent to [facility] Interventional Radiology for Cardiac CTA, AND CTA A/P TAVR protocol. They will contact pt directly to schedule. ? La Ivan 04/20/2019 2:31 PM Signed Okay thanks! Elisha Cardenas ?You 25 minutes ago (2:05 PM) TAVR clinic appt 05/11 10:30am Routing Comment Normal [facility] CNPJohanna 04-20-2019 CNPN Telephone (AGVASACC) LEONIDELIAS GABRIEL ([id number]) 1940 M Date Time Provider Department 04/20/19 WAYNE RIVERS During your visit today, we recorded the following information about you: Elisha Cardenas 04/20/2019 2:05 PM Signed Mr. Shah is schedule 05/11/19 10:30am with Dr. Green and Dr. Rivers for TAVR consult. Appointment information given to Mr. Shah's sister Amalia Zamora. Also request sent to [facility] Interventional Radiology for Cardiac CTA, AND [...] ridge* FLUTICASONE PROPIONATE 50 MCG* Use 1 [place] in each nostril o* LOPERAMIDE 2 MG CAPSULE Take 2 mg by mouth once daily. CHOLECALCIFEROL (VITAMIN D3) * Take 5,000 Units by mouth onc* FERROUS SULFATE 325 MG (65 MG* Take 325 mg by mouth daily wi* ROSUVASTATIN 5 MG TABLET Take 5 mg by mouth once daily. Problem List As Of Date: 04/20/2019 (None) Encounter Status:Closed by ELISHA CARDENAS on 04/20/19 [facility] CNTRTMon 04-19-2019 CNTRT Treatment Team (AGVASACC) LEONIDELIAS ([id number]) 1940 M Date Time Provider Department 04/19/19 HIGINIO BACON) JAZMYNE During your visit today, we recorded the following information about you: Higinio Bacon APRN.CNP 04/19/2019 9:02 AM Signed MULTI DISCIPLINARY HIGH RISK PCI AND VALVULAR DISEASE CARDIAC TEAM ? Members present: Smitha Bass Lahorra, Cogan, King, Frederick, Ruhlin, Stocker, Mouck, Siva ? Presenting Physician: Manuel ? PATIENT [...] and TAVR to follow CAD intervention. ? Higinio Bacon APRN.CNP Allergies As of Date: 04/19/2019 (No Known Allergies) Date Reviewed: Never Reviewed Primary Visit Diagnosis:Aortic valve stenosis, etiology of cardiac valve disease unspecified [I35.0] Other Visit Diagnosis:Coronary artery disease involving rosebud heart with angina pectoris, unspecified vessel or lesion type (HCC) [I25.119] Order(s):LEFT HEART CATH,PERCUTANEOUS [[id number]] Order #: [id number]: 1 Prescriptions as of 04/19/2019 Sig: LACTOBACILLUS ACIDOPH-LACTASE* Take by mouth twice daily. ACETAMINOPHEN 500 MG CAPSULE Take 2 capsules by mouth twic* AMLODIPINE 5 MG TABLET Take 5 mg by mouth once daily. CARVEDILOL 25 MG TABLET Take 25 mg by mouth three ridge* FLUTICASONE PROPIONATE 50 MCG* Use 1 [place] in each nostril o* LOPERAMIDE 2 MG CAPSULE Take 2 mg by mouth once daily. CHOLECALCIFEROL (VITAMIN D3) * Take 5,000 Units by mouth onc* FERROUS SULFATE 325 MG (65 MG* Take 325 mg by mouth daily wi* ROSUVASTATIN 5 MG TABLET Take 5 mg by mouth once daily. Problem List As Of Date: 04/19/2019 (None) Encounter Status:Closed by HIGINIO BACON CNP on 04/19/19 [facility] PROGRESSon 04-19-2019 PROGRESS HNO ID: [id number] Author: Higinio Bacon Service: ? Author Type: Nurse Practitioner Type: Progress Notes Filed: 04/19/2019 9:02 AM Note Text: MULTI DISCIPLINARY HIGH RISK PCI AND VALVULAR DISEASE CARDIAC TEAM ? Members present: Kali, Manuel Bone, King Raman Frederick, Yana, Nina, Joya, Siva ? Presenting Physician: Manuel ? PATIENT [...] and TAVR to follow CAD intervention. ? Higinio Bacon, ADRYAN.KEE [facility] CNOVon 04-13-2019 CNOV Office Visit (AGVASACC) ELIAS SHAH ([id number]) 1940 M Date Time Provider Department 04/13/19 [...] 13, 2019 TIME: 1:46 PM PAGER/CONTACT #: [id number] 1. 8 sec 2. 7.3 sec 3. 7.2 sec AMA Carson APRN.OLEKSANDR OTERO 04/13/2019 2:47 PM Addendum You came in [...] call us if you have any concerns/questions: [phone] OLEKSANDR Albrecht MD 04/13/2019 3:22 PM Signed Elias Shah is an 78 year old man referred for evaluation of symptomatic severe aortic stenosis and for consideration for SAVR versus TAVR. He was admitted to [facility] in November with acute illness due to [...] had further evaluation by Dr. Ann of [place] cardiology. Left heart catheterization shows no significant [...] HERNIA 12/04/2018 after bowel perforation done at [facility] Dr. Young REVIEW OF SYSTEMS: GENERAL: Fever [...] Rivers MD . Referring Provider: GERALD ANN [[id number]] Allergies As of Date: 04/13/2019 (No Known [...] anemia [D62] Order(s):CREATININE BLD [SQCRET] Order #: [id number] FUTURE CTA CHEST (GATED) WO/W IVCON [[id number]] Order #: [id number] FUTURE CTA ABD/PEL W IVCON [[id number]] Order #: [id number] FUTURE IRON + TIBC [SQIRON] Order #: [id number] FUTURE US CAROTID ARTERIES [facility] [[id number]] Order #: [id number] FUTURE FERRITIN BLD [SQFERR] Order #: [id number] FUTURE Prescriptions as of 04/13/2019 Sig: LACTOBACILLUS ACIDOPH-LACTASE* Take by mouth twice daily. ACETAMINOPHEN 500 MG CAPSULE Take 2 capsules by mouth twic* AMLODIPINE 5 MG TABLET Take 5 mg by mouth once daily. CARVEDILOL 25 MG TABLET Take 25 mg by mouth three ridge* FLUTICASONE PROPIONATE 50 MCG* Use 1 [place] in each nostril o* LOPERAMIDE 2 MG [...] call us if you have any concerns/questions: [phone] Milad Paniagua APRN.[employer] PUBLISH[employer] Visit Notes: >> Brook Sweeney ThuApril 13, 2019 1:46 PM Status: Signed CARDIAC REHAB 5 METER WALK TEST SERVICE DATE: 04/13/2019 SERVICE TIME: 1346 ASSESSMENT: SIGNATURE: Brook Sweeney LPN PATIENT NAME: Elias Shah DATE: April 13, 2019 TIME: 1:46 PM PAGER/CONTACT #: [id number] 1. 8 sec 2. 7.3 sec 3. 7.2 sec Brook RomoAMA spicer Level of Service: NEW PATIENT VISIT LEVEL 5 [[id number]] Letter Text Encounter Status:Closed by WAYNE RIVERS MD on 04/13/19 [facility] HISTORY PHYSICALon 9 HISTORY PHYSICAL HNO ID: [id number] Author: Wayne Rivers Service: ? Author Type: Physician Type: HANDP Filed: 04/13/2019 3:22 PM Note Text: Elias Shah is an 78 year old man referred for evaluation of symptomatic severe aortic stenosis and for consideration for SAVR versus TAVR. He was admitted to [facility] in November with acute illness due to [...] had further evaluation by Dr. Ann of [place] cardiology. Left heart catheterization shows no significant [...] HERNIA 12/04/2018 after bowel perforation done at [facility] Dr. Young REVIEW OF SYSTEMS: GENERAL: Fever [...] to follow. Wayne Rivers MD . Normal [facility] Basic Metabolic Panelon 11-24 Anion gap molar conc 6 Normal [facility] Comment on above: Performed By: #### H EMDF, NH33, PT, CMP3, LIPA4, CK3, TROPN, LACT3, MDIFF, PCAL #### [facility] [employer] [place] [id number] [address] [place], [place] Calcium mass conc 8.0 mg/dL Low 8.4-10.4 [facility] Comment on above: Performed By: #### H EMDF, NH33, PT, CMP3, LIPA4, CK3, TROPN, LACT3, MDIFF, PCAL #### [place] [address] [address] [place], [place] CO2 molar conc 26 mmol/L Normal 22-30 [facility] Comment on above: Performed By: #### H EMDF, NH33, PT, CMP3, LIPA4, CK3, TROPN, LACT3, MDIFF, PCAL #### [place] [address] [address] [place], [place] Glucose mass conc 98 mg/dL Normal 70-100 [facility] Comment on above: Performed By: #### H EMDF, NH33, PT, CMP3, LIPA4, CK3, TROPN, LACT3, MDIFF, PCAL #### [place] [address] [address] [place], [place] Urea nitrogen mass conc 19 mg/dL Normal 7-20 [facility] Comment on above: Performed By: #### H EMDF, NH33, PT, CMP3, LIPA4, CK3, TROPN, LACT3, MDIFF, PCAL #### [place] [address] [address] [place], [place] Creatinine mass conc 1.19 mg/dL Normal 0.52-1.25 [facility] Comment on above: Performed By: #### H EMDF, NH33, PT, CMP3, LIPA4, CK3, TROPN, LACT3, MDIFF, PCAL #### [place] [address] [address] [place], [place] GFR/1.73 sq M predicted among blacks MDRD vol rate/area (S/P/Bld) mL/min/{1.73_m2} Normal >60 [facility] Comment on above: Performed By: #### H EMDF, NH33, PT, CMP3, LIPA4, CK3, TROPN, LACT3, MDIFF, PCAL #### [place] [address] [place], [place] GFR/1.73 sq M predicted among non-blacks MDRD vol rate/area (S/P/Bld) 58.7 mL/min/{1.73_m2} Normal >60 [facility] Comment on above: Result Comment: Sour ce- MDRD equation with creatinine calibration to IDMS(NKDEP) eGFR not recommended for drug dose adjustment Performed By: #### H EMDF, NH33, PT, CMP3, LIPA4, CK3, TROPN, LACT3, MDIFF, PCAL #### [place] [address] [place], [place] Potassium molar conc 4.0 mmol/L Normal 3.5-5.1 [facility] Comment on above: Performed By: #### H EMDF, NH33, PT, CMP3, LIPA4, CK3, TROPN, LACT3, MDIFF, PCAL #### [place] [address] [place] Chloride molar conc 107 mmol/L Normal 98-107 [facility] Comment on above: Performed By: #### H EMDF, NH33, PT, CMP3, LIPA4, CK3, TROPN, LACT3, MDIFF, PCAL #### [place] [address] [place] Sodium molar conc 139 mmol/L Normal 135-145 [facility] Comment on above: Performed By: #### H EMDF, NH33, PT, CMP3, LIPA4, CK3, TROPN, LACT3, MDIFF, PCAL #### [address] Hemogram w/ Autodiffon 12-14 Abs Baso Cnt 0.0 10*3/uL Normal 0.0-0.2 [facility] Comment on above: Performed By: #### H EMDF, NH33, PT, CMP3, LIPA4, CK3, TROPN, LACT3, MDIFF, PCAL #### [place] [address] [place], [place] Abs Neutrophile Cnt 3.6 10*3/uL Normal 1.8-7.0 [facility] Comment on above: Performed By: #### H EMDF, NH33, PT, CMP3, LIPA4, CK3, TROPN, LACT3, MDIFF, PCAL #### [address] [id number] Basophils/100 WBC (Bld) 0.4 % Normal 0.0-2.0 [facility] Comment on above: Performed By: #### H EMDF, NH33, PT, CMP3, LIPA4, CK3, TROPN, LACT3, MDIFF, PCAL #### [address] [phone] Eosinophils #/vol (Bld) 0.1 10*3/uL Normal 0.0-0.5 [facility] Comment on above: Performed By: #### H EMDF, NH33, PT, CMP3, LIPA4, CK3, TROPN, LACT3, MDIFF, PCAL #### [address] [phone] Eosinophils/100 WBC (Bld) 1.3 % Normal 1.0-6.0 [facility] Comment on above: Performed By: #### H EMDF, NH33, PT, CMP3, LIPA4, CK3, TROPN, LACT3, MDIFF, PCAL #### [address] Erythrocyte distribution width Ratio (RBC) 15.2 % High 11.5-14.5 [facility] Comment on above: Performed By: #### H EMDF, NH33, PT, CMP3, LIPA4, CK3, TROPN, LACT3, MDIFF, PCAL #### [address] Granulocytes/100 WBC (Bld) 55.8 % Normal 40.0-80.0 [facility] Comment on above: Performed By: #### H EMDF, NH33, PT, CMP3, LIPA4, CK3, TROPN, LACT3, MDIFF, PCAL #### [address] Hematocrit Volume Fraction (Bld) 26.7 % Low 40.0-52.0 [facility] Comment on above: Performed By: #### H EMDF, NH33, PT, CMP3, LIPA4, CK3, TROPN, LACT3, MDIFF, PCAL #### [address] Hemoglobin mass conc (Bld) 8.8 g/dL Low 13.0-18.0 [facility] Comment on above: Performed By: #### H EMDF, NH33, PT, CMP3, LIPA4, CK3, TROPN, LACT3, MDIFF, PCAL #### [address] Lymphocytes #/vol (Bld) 1.9 10*3/uL Normal 1.0-4.3 [facility] Comment on above: Performed By: #### H EMDF, NH33, PT, CMP3, LIPA4, CK3, TROPN, LACT3, MDIFF, PCAL #### [address] Lymphocytes/100 WBC (Bld) 29.6 % Normal 20.0-40.0 [facility] Comment on above: Performed By: #### H EMDF, NH33, PT, CMP3, LIPA4, CK3, TROPN, LACT3, MDIFF, PCAL #### [address] MCH Entitic mass (RBC) 28.6 pg Normal 26.0-34.0 [facility] Comment on above: Performed By: #### H EMDF, NH33, PT, CMP3, LIPA4, CK3, TROPN, LACT3, MDIFF, PCAL #### [address] MCHC mass conc (RBC) 32.9 % Normal 32.0-36.0 [facility] Comment on above: Performed By: #### H EMDF, NH33, PT, CMP3, LIPA4, CK3, TROPN, LACT3, MDIFF, PCAL #### [address] MCV Entitic volume (RBC) 86.9 fL Normal 80.0-98.0 [facility] Comment on above: Performed By: #### H EMDF, NH33, PT, CMP3, LIPA4, CK3, TROPN, LACT3, MDIFF, PCAL #### [address] Monocytes #/vol (Bld) 0.8 10*3/uL Normal 0.0-0.8 [facility] Comment on above: Performed By: #### H EMDF, NH33, PT, CMP3, LIPA4, CK3, TROPN, LACT3, MDIFF, PCAL #### [address] Monocytes/100 WBC (Bld) 12.9 % High 2.0-10.0 [facility] Comment on above: Performed By: #### H EMDF, NH33, PT, CMP3, LIPA4, CK3, TROPN, LACT3, MDIFF, PCAL #### [address] Platelet mean volume Entitic volume (Bld) 8.7 fL Normal 7.4-10.4 [facility] Comment on above: Performed By: #### H EMDF, NH33, PT, CMP3, LIPA4, CK3, TROPN, LACT3, MDIFF, PCAL #### [address] Platelets #/vol (Bld) 211 10*3/uL Normal 140-440 [facility] Comment on above: Performed By: #### H EMDF, NH33, PT, CMP3, LIPA4, CK3, TROPN, LACT3, MDIFF, PCAL #### [address] RBC #/vol (Bld) 3.07 10*6/uL Low 4.40-5.90 [facility] Comment on above: Performed By: #### H EMDF, NH33, PT, CMP3, LIPA4, CK3, TROPN, LACT3, MDIFF, PCAL #### [place] [address] [place], [place] WBC #/vol (Bld) 6.4 10*3/uL Normal 3.6-10.7 [facility] Comment on above: Performed By: #### H EMDF, NH33, PT, CMP3, LIPA4, CK3, TROPN, LACT3, MDIFF, PCAL #### [place] [address] [place], [place] Basic Metabolic Panelon 01-2 Anion gap molar conc 6 Normal [facility] Comment on above: Performed By: #### H EMDF, NH33, PT, CMP3, LIPA4, CK3, TROPN, LACT3, MDIFF, PCAL #### [address] Calcium mass conc 8.0 mg/dL Low 8.4-10.4 [facility] Comment on above: Performed By: #### H EMDF, NH33, PT, CMP3, LIPA4, CK3, TROPN, LACT3, MDIFF, PCAL #### [address] CO2 molar conc 25 mmol/L Normal 22-30 [facility] Comment on above: Performed By: #### H EMDF, NH33, PT, CMP3, LIPA4, CK3, TROPN, LACT3, MDIFF, PCAL #### [address] Glucose mass conc 100 mg/dL Normal 70-100 [facility] Comment on above: Performed By: #### H EMDF, NH33, PT, CMP3, LIPA4, CK3, TROPN, LACT3, MDIFF, PCAL #### [address] Urea nitrogen mass conc 24 mg/dL High 7-20 [facility] Comment on above: Performed By: #### H EMDF, NH33, PT, CMP3, LIPA4, CK3, TROPN, LACT3, MDIFF, PCAL #### [address] Creatinine mass conc 1.35 mg/dL High 0.52-1.25 [facility] Comment on above: Performed By: #### H EMDF, NH33, PT, CMP3, LIPA4, CK3, TROPN, LACT3, MDIFF, PCAL #### [address] GFR/1.73 sq M predicted among blacks MDRD vol rate/area (S/P/Bld) mL/min/{1.73_m2} Normal >60 [facility] Comment on above: Performed By: #### H EMDF, NH33, PT, CMP3, LIPA4, CK3, TROPN, LACT3, MDIFF, PCAL #### [address] GFR/1.73 sq M predicted among non-blacks MDRD vol rate/area (S/P/Bld) 50.8 mL/min/{1.73_m2} Normal >60 [facility] Comment on above: Result Comment: Sour ce- MDRD equation with creatinine calibration to IDMS(NKDEP) eGFR not recommended for drug dose adjustment Performed By: #### H EMDF, NH33, PT, CMP3, LIPA4, CK3, TROPN, LACT3, MDIFF, PCAL #### [address] Potassium molar conc 3.6 mmol/L Normal 3.5-5.1 [facility] Comment on above: Performed By: #### H EMDF, NH33, PT, CMP3, LIPA4, CK3, TROPN, LACT3, MDIFF, PCAL #### [address] Chloride molar conc 109 mmol/L High 98-107 [facility] Comment on above: Performed By: #### H EMDF, NH33, PT, CMP3, LIPA4, CK3, TROPN, LACT3, MDIFF, PCAL #### [address] Sodium molar conc 141 mmol/L Normal 135-145 [facility] Comment on above: Performed By: #### H EMDF, NH33, PT, CMP3, LIPA4, CK3, TROPN, LACT3, MDIFF, PCAL #### [address] Hemogram w/ Autodiffon 12-13 Abs Baso Cnt 0.0 10*3/uL Normal 0.0-0.2 [facility] Comment on above: Performed By: #### H EMDF, NH33, PT, CMP3, LIPA4, CK3, TROPN, LACT3, MDIFF, PCAL #### [address] Abs Neutrophile Cnt 3.5 10*3/uL Normal 1.8-7.0 [facility] Comment on above: Performed By: #### H EMDF, NH33, PT, CMP3, LIPA4, CK3, TROPN, LACT3, MDIFF, PCAL #### [address] Basophils/100 WBC (Bld) 0.4 % Normal 0.0-2.0 [facility] Comment on above: Performed By: #### H EMDF, NH33, PT, CMP3, LIPA4, CK3, TROPN, LACT3, MDIFF, PCAL #### [address] Eosinophils #/vol (Bld) 0.1 10*3/uL Normal 0.0-0.5 [facility] Comment on above: Performed By: #### H EMDF, NH33, PT, CMP3, LIPA4, CK3, TROPN, LACT3, MDIFF, PCAL #### [address] Eosinophils/100 WBC (Bld) 2.1 % Normal 1.0-6.0 [facility] Comment on above: Performed By: #### H EMDF, NH33, PT, CMP3, LIPA4, CK3, TROPN, LACT3, MDIFF, PCAL #### [address] Erythrocyte distribution width Ratio (RBC) 14.8 % High 11.5-14.5 [facility] Comment on above: Performed By: #### H EMDF, NH33, PT, CMP3, LIPA4, CK3, TROPN, LACT3, MDIFF, PCAL #### [address] Granulocytes/100 WBC (Bld) 57.7 % Normal 40.0-80.0 [facility] Comment on above: Performed By: #### H EMDF, NH33, PT, CMP3, LIPA4, CK3, TROPN, LACT3, MDIFF, PCAL #### [address] Hematocrit Volume Fraction (Bld) 26.4 % Low 40.0-52.0 [facility] Comment on above: Performed By: #### H EMDF, NH33, PT, CMP3, LIPA4, CK3, TROPN, LACT3, MDIFF, PCAL #### [address] Hemoglobin mass conc (Bld) 8.6 g/dL Low 13.0-18.0 [facility] Comment on above: Performed By: #### H EMDF, NH33, PT, CMP3, LIPA4, CK3, TROPN, LACT3, MDIFF, PCAL #### [address] Lymphocytes #/vol (Bld) 1.7 10*3/uL Normal 1.0-4.3 [facility] Comment on above: Performed By: #### H EMDF, NH33, PT, CMP3, LIPA4, CK3, TROPN, LACT3, MDIFF, PCAL #### [address] Lymphocytes/100 WBC (Bld) 27.9 % Normal 20.0-40.0 [facility] Comment on above: Performed By: #### H EMDF, NH33, PT, CMP3, LIPA4, CK3, TROPN, LACT3, MDIFF, PCAL #### [address] MCH Entitic mass (RBC) 28.7 pg Normal 26.0-34.0 [facility] Comment on above: Performed By: #### H EMDF, NH33, PT, CMP3, LIPA4, CK3, TROPN, LACT3, MDIFF, PCAL #### [address] MCHC mass conc (RBC) 32.7 % Normal 32.0-36.0 [facility] Comment on above: Performed By: #### H EMDF, NH33, PT, CMP3, LIPA4, CK3, TROPN, LACT3, MDIFF, PCAL #### [address] MCV Entitic volume (RBC) 87.8 fL Normal 80.0-98.0 [facility] Comment on above: Performed By: #### H EMDF, NH33, PT, CMP3, LIPA4, CK3, TROPN, LACT3, MDIFF, PCAL #### [address] Monocytes #/vol (Bld) 0.7 10*3/uL Normal 0.0-0.8 [facility] Comment on above: Performed By: #### H EMDF, NH33, PT, CMP3, LIPA4, CK3, TROPN, LACT3, MDIFF, PCAL #### [address] Monocytes/100 WBC (Bld) 11.9 % High 2.0-10.0 [facility] Comment on above: Performed By: #### H EMDF, NH33, PT, CMP3, LIPA4, CK3, TROPN, LACT3, MDIFF, PCAL #### [address] Platelet mean volume Entitic volume (Bld) 8.6 fL Normal 7.4-10.4 [facility] Comment on above: Performed By: #### H EMDF, NH33, PT, CMP3, LIPA4, CK3, TROPN, LACT3, MDIFF, PCAL #### [address] Platelets #/vol (Bld) 186 10*3/uL Normal 140-440 [facility] Comment on above: Performed By: #### H EMDF, NH33, PT, CMP3, LIPA4, CK3, TROPN, LACT3, MDIFF, PCAL #### [address] RBC #/vol (Bld) 3.01 10*6/uL Low 4.40-5.90 [facility] Comment on above: Performed By: #### H EMDF, NH33, PT, CMP3, LIPA4, CK3, TROPN, LACT3, MDIFF, PCAL #### [address] WBC #/vol (Bld) 6.0 10*3/uL Normal 3.6-10.7 [facility] Comment on above: Performed By: #### H EMDF, NH33, PT, CMP3, LIPA4, CK3, TROPN, LACT3, MDIFF, PCAL #### [address] Basic Metabolic Panelon -2 Anion gap molar conc 9 Normal [facility] Comment on above: Performed By: #### H EMDF, NH33, PT, CMP3, LIPA4, CK3, TROPN, LACT3, MDIFF, PCAL #### [address] Calcium mass conc 8.2 mg/dL Low 8.4-10.4 [facility] Comment on above: Performed By: #### H EMDF, NH33, PT, CMP3, LIPA4, CK3, TROPN, LACT3, MDIFF, PCAL #### [address] CO2 molar conc 28 mmol/L Normal 22-30 [facility] Comment on above: Performed By: #### H EMDF, NH33, PT, CMP3, LIPA4, CK3, TROPN, LACT3, MDIFF, PCAL #### [facility] [address] [place], [place] Creatinine mass conc 1.43 mg/dL High 0.52-1.25 [facility] Comment on above: Performed By: #### H EMDF, NH33, PT, CMP3, LIPA4, CK3, TROPN, LACT3, MDIFF, PCAL #### [facility] [address] [place], [place] GFR/1.73 sq M predicted among blacks MDRD vol rate/area (S/P/Bld) 57.6 mL/min/{1.73_m2} Normal >60 [facility] Comment on above: Performed By: #### H EMDF, NH33, PT, CMP3, LIPA4, CK3, TROPN, LACT3, MDIFF, PCAL #### [facility] [address] [place], [place] GFR/1.73 sq M predicted among non-blacks MDRD vol rate/area (S/P/Bld) 47.5 mL/min/{1.73_m2} Normal >60 [facility] Comment on above: Result Comment: Sour ce- MDRD equation with creatinine calibration to IDMS(NKDEP) eGFR not recommended for drug dose adjustment Performed By: #### H EMDF, NH33, PT, CMP3, LIPA4, CK3, TROPN, LACT3, MDIFF, PCAL #### [facility] [address] [place], [place] Glucose mass conc 124 mg/dL High 70-100 [facility] Comment on above: Performed By: #### H EMDF, NH33, PT, CMP3, LIPA4, CK3, TROPN, LACT3, MDIFF, PCAL #### [facility] [address] [place], [place] Urea nitrogen mass conc 30 mg/dL High 7-20 [facility] Comment on above: Performed By: #### H EMDF, NH33, PT, CMP3, LIPA4, CK3, TROPN, LACT3, MDIFF, PCAL #### [place] [address] [address] [place], [place] Chloride molar conc 107 mmol/L Normal 98-107 [facility] Comment on above: Performed By: #### H EMDF, NH33, PT, CMP3, LIPA4, CK3, TROPN, LACT3, MDIFF, PCAL #### [place] [address] [place], [place] Potassium molar conc 3.4 mmol/L Low 3.5-5.1 [facility] Comment on above: Performed By: #### H EMDF, NH33, PT, CMP3, LIPA4, CK3, TROPN, LACT3, MDIFF, PCAL #### [place] [address] [place] Sodium molar conc 144 mmol/L Normal 135-145 [facility] Comment on above: Performed By: #### H EMDF, NH33, PT, CMP3, LIPA4, CK3, TROPN, LACT3, MDIFF, PCAL #### [address] Hemogram w/ Autodiffon 12-12 Abs Baso Cnt 0.0 10*3/uL Normal 0.0-0.2 [facility] Comment on above: Performed By: #### H EMDF, NH33, PT, CMP3, LIPA4, CK3, TROPN, LACT3, MDIFF, PCAL #### [place] [address] [place] Abs Neutrophile Cnt 4.5 10*3/uL Normal 1.8-7.0 [facility] Comment on above: Performed By: #### H EMDF, NH33, PT, CMP3, LIPA4, CK3, TROPN, LACT3, MDIFF, PCAL #### [address] Basophils/100 WBC (Bld) 0.3 % Normal 0.0-2.0 [facility] Comment on above: Performed By: #### H EMDF, NH33, PT, CMP3, LIPA4, CK3, TROPN, LACT3, MDIFF, PCAL #### [address] Eosinophils #/vol (Bld) 0.2 10*3/uL Normal 0.0-0.5 [facility] Comment on above: Performed By: #### H EMDF, NH33, PT, CMP3, LIPA4, CK3, TROPN, LACT3, MDIFF, PCAL #### [address] Eosinophils/100 WBC (Bld) 2.3 % Normal 1.0-6.0 [facility] Comment on above: Performed By: #### H EMDF, NH33, PT, CMP3, LIPA4, CK3, TROPN, LACT3, MDIFF, PCAL #### [address] Erythrocyte distribution width Ratio (RBC) 15.0 % High 11.5-14.5 [facility] Comment on above: Performed By: #### H EMDF, NH33, PT, CMP3, LIPA4, CK3, TROPN, LACT3, MDIFF, PCAL #### [address] Granulocytes/100 WBC (Bld) 62.5 % Normal 40.0-80.0 [facility] Comment on above: Performed By: #### H EMDF, NH33, PT, CMP3, LIPA4, CK3, TROPN, LACT3, MDIFF, PCAL #### [address] Hematocrit Volume Fraction (Bld) 29.8 % Low 40.0-52.0 [facility] Comment on above: Performed By: #### H EMDF, NH33, PT, CMP3, LIPA4, CK3, TROPN, LACT3, MDIFF, PCAL #### [address] Hemoglobin mass conc (Bld) 10.0 g/dL Low 13.0-18.0 [facility] Comment on above: Performed By: #### H EMDF, NH33, PT, CMP3, LIPA4, CK3, TROPN, LACT3, MDIFF, PCAL #### [address] Lymphocytes #/vol (Bld) 1.8 10*3/uL Normal 1.0-4.3 [facility] Comment on above: Performed By: #### H EMDF, NH33, PT, CMP3, LIPA4, CK3, TROPN, LACT3, MDIFF, PCAL #### [address] Lymphocytes/100 WBC (Bld) 25.1 % Normal 20.0-40.0 [facility] Comment on above: Performed By: #### H EMDF, NH33, PT, CMP3, LIPA4, CK3, TROPN, LACT3, MDIFF, PCAL #### [address] [address] [place], [place] MCH Entitic mass (RBC) 29.0 pg Normal 26.0-34.0 [facility] Comment on above: Performed By: #### H EMDF, NH33, PT, CMP3, LIPA4, CK3, TROPN, LACT3, MDIFF, PCAL #### [address] [address] [place], [place] MCHC mass conc (RBC) 33.4 % Normal 32.0-36.0 [facility] Comment on above: Performed By: #### H EMDF, NH33, PT, CMP3, LIPA4, CK3, TROPN, LACT3, MDIFF, PCAL #### [address] MCV Entitic volume (RBC) 86.8 fL Normal 80.0-98.0 [facility] Comment on above: Performed By: #### H EMDF, NH33, PT, CMP3, LIPA4, CK3, TROPN, LACT3, MDIFF, PCAL #### [address] [address] [place], [place] Monocytes #/vol (Bld) 0.7 10*3/uL Normal 0.0-0.8 [facility] Comment on above: Performed By: #### H EMDF, NH33, PT, CMP3, LIPA4, CK3, TROPN, LACT3, MDIFF, PCAL #### [address] [address] [place], [place] Monocytes/100 WBC (Bld) 9.8 % Normal 2.0-10.0 [facility] Comment on above: Performed By: #### H EMDF, NH33, PT, CMP3, LIPA4, CK3, TROPN, LACT3, MDIFF, PCAL #### [address] Platelet mean volume Entitic volume (Bld) 8.6 fL Normal 7.4-10.4 [facility] Comment on above: Performed By: #### H EMDF, NH33, PT, CMP3, LIPA4, CK3, TROPN, LACT3, MDIFF, PCAL #### [address] Platelets #/vol (Bld) 216 10*3/uL Normal 140-440 [facility] Comment on above: Performed By: #### H EMDF, NH33, PT, CMP3, LIPA4, CK3, TROPN, LACT3, MDIFF, PCAL #### [address] [address] [place], [place] RBC #/vol (Bld) 3.43 10*6/uL Low 4.40-5.90 [facility] Comment on above: Performed By: #### H EMDF, NH33, PT, CMP3, LIPA4, CK3, TROPN, LACT3, MDIFF, PCAL #### [address] WBC #/vol (Bld) 7.2 10*3/uL Normal 3.6-10.7 [facility] Comment on above: Performed By: #### H EMDF, NH33, PT, CMP3, LIPA4, CK3, TROPN, LACT3, MDIFF, PCAL #### [address] Magnesiumon 12-12-2018 Magnesium mass conc 1.8 mg/dL Normal 1.6-2.3 [facility] Comment on above: Performed By: #### H EMDF, NH33, PT, CMP3, LIPA4, CK3, TROPN, LACT3, MDIFF, PCAL #### [address] Basic Metabolic Panelon 11-23 Anion gap molar conc 6 Normal [facility] Comment on above: Performed By: #### H EMDF, NH33, PT, CMP3, LIPA4, CK3, TROPN, LACT3, MDIFF, PCAL #### [address] Calcium mass conc 8.1 mg/dL Low 8.4-10.4 [facility] Comment on above: Performed By: #### H EMDF, NH33, PT, CMP3, LIPA4, CK3, TROPN, LACT3, MDIFF, PCAL #### [address] [address] [place], [place] CO2 molar conc 26 mmol/L Normal 22-30 [facility] Comment on above: Performed By: #### H EMDF, NH33, PT, CMP3, LIPA4, CK3, TROPN, LACT3, MDIFF, PCAL #### [address] Glucose mass conc 95 mg/dL Normal 70-100 [facility] Comment on above: Performed By: #### H EMDF, NH33, PT, CMP3, LIPA4, CK3, TROPN, LACT3, MDIFF, PCAL #### [address] Urea nitrogen mass conc 33 mg/dL High 7-20 [facility] Comment on above: Performed By: #### H EMDF, NH33, PT, CMP3, LIPA4, CK3, TROPN, LACT3, MDIFF, PCAL #### [address] Creatinine mass conc 1.52 mg/dL High 0.52-1.25 [facility] Comment on above: Performed By: #### H EMDF, NH33, PT, CMP3, LIPA4, CK3, TROPN, LACT3, MDIFF, PCAL #### [address] GFR/1.73 sq M predicted among blacks MDRD vol rate/area (S/P/Bld) 53.7 mL/min/{1.73_m2} Normal >60 [facility] Comment on above: Performed By: #### H EMDF, NH33, PT, CMP3, LIPA4, CK3, TROPN, LACT3, MDIFF, PCAL #### [address] GFR/1.73 sq M predicted among non-blacks MDRD vol rate/area (S/P/Bld) 44.3 mL/min/{1.73_m2} Normal >60 [facility] Comment on above: Result Comment: Sour ce- MDRD equation with creatinine calibration to IDMS(NKDEP) eGFR not recommended for drug dose adjustment Performed By: #### H EMDF, NH33, PT, CMP3, LIPA4, CK3, TROPN, LACT3, MDIFF, PCAL #### [address] Potassium molar conc 3.5 mmol/L Normal 3.5-5.1 [facility] Comment on above: Performed By: #### H EMDF, NH33, PT, CMP3, LIPA4, CK3, TROPN, LACT3, MDIFF, PCAL #### [address] Sodium molar conc 142 mmol/L Normal 135-145 [facility] Comment on above: Performed By: #### H EMDF, NH33, PT, CMP3, LIPA4, CK3, TROPN, LACT3, MDIFF, PCAL #### [address] [address] [place] Chloride molar conc 109 mmol/L High 98-107 [facility] Comment on above: Performed By: #### H EMDF, NH33, PT, CMP3, LIPA4, CK3, TROPN, LACT3, MDIFF, PCAL #### [address] Hemogram w/ Autodiffon 12-11 Abs Baso Cnt 0.0 10*3/uL Normal 0.0-0.2 [facility] Comment on above: Performed By: #### H EMDF, NH33, PT, CMP3, LIPA4, CK3, TROPN, LACT3, MDIFF, PCAL #### [address] Abs Neutrophile Cnt 4.5 10*3/uL Normal 1.8-7.0 [facility] Comment on above: Performed By: #### H EMDF, NH33, PT, CMP3, LIPA4, CK3, TROPN, LACT3, MDIFF, PCAL #### [address] Basophils/100 WBC (Bld) 0.3 % Normal 0.0-2.0 [facility] Comment on above: Performed By: #### H EMDF, NH33, PT, CMP3, LIPA4, CK3, TROPN, LACT3, MDIFF, PCAL #### [address] [address] [place] Eosinophils #/vol (Bld) 0.2 10*3/uL Normal 0.0-0.5 [facility] Comment on above: Performed By: #### H EMDF, NH33, PT, CMP3, LIPA4, CK3, TROPN, LACT3, MDIFF, PCAL #### [address] Eosinophils/100 WBC (Bld) 2.9 % Normal 1.0-6.0 [facility] Comment on above: Performed By: #### H EMDF, NH33, PT, CMP3, LIPA4, CK3, TROPN, LACT3, MDIFF, PCAL #### [address] Erythrocyte distribution width Ratio (RBC) 15.1 % High 11.5-14.5 [facility] Comment on above: Performed By: #### H EMDF, NH33, PT, CMP3, LIPA4, CK3, TROPN, LACT3, MDIFF, PCAL #### [address] Granulocytes/100 WBC (Bld) 60.8 % Normal 40.0-80.0 [facility] Comment on above: Performed By: #### H EMDF, NH33, PT, CMP3, LIPA4, CK3, TROPN, LACT3, MDIFF, PCAL #### [address] Hematocrit Volume Fraction (Bld) 27.2 % Low 40.0-52.0 [facility] Comment on above: Performed By: #### H EMDF, NH33, PT, CMP3, LIPA4, CK3, TROPN, LACT3, MDIFF, PCAL #### [address] Hemoglobin mass conc (Bld) 9.1 g/dL Low 13.0-18.0 [facility] Comment on above: Performed By: #### H EMDF, NH33, PT, CMP3, LIPA4, CK3, TROPN, LACT3, MDIFF, PCAL #### [address] Lymphocytes #/vol (Bld) 1.7 10*3/uL Normal 1.0-4.3 [facility] Comment on above: Performed By: #### H EMDF, NH33, PT, CMP3, LIPA4, CK3, TROPN, LACT3, MDIFF, PCAL #### [address] Lymphocytes/100 WBC (Bld) 22.8 % Normal 20.0-40.0 [facility] Comment on above: Performed By: #### H EMDF, NH33, PT, CMP3, LIPA4, CK3, TROPN, LACT3, MDIFF, PCAL #### [address] MCH Entitic mass (RBC) 28.9 pg Normal 26.0-34.0 [facility] Comment on above: Performed By: #### H EMDF, NH33, PT, CMP3, LIPA4, CK3, TROPN, LACT3, MDIFF, PCAL #### [address] MCHC mass conc (RBC) 33.3 % Normal 32.0-36.0 [facility] Comment on above: Performed By: #### H EMDF, NH33, PT, CMP3, LIPA4, CK3, TROPN, LACT3, MDIFF, PCAL #### [address] MCV Entitic volume (RBC) 86.8 fL Normal 80.0-98.0 [facility] Comment on above: Performed By: #### H EMDF, NH33, PT, CMP3, LIPA4, CK3, TROPN, LACT3, MDIFF, PCAL #### [address] Monocytes #/vol (Bld) 1.0 10*3/uL High 0.0-0.8 [facility] Comment on above: Performed By: #### H EMDF, NH33, PT, CMP3, LIPA4, CK3, TROPN, LACT3, MDIFF, PCAL #### [address] Monocytes/100 WBC (Bld) 13.2 % High 2.0-10.0 [facility] Comment on above: Performed By: #### H EMDF, NH33, PT, CMP3, LIPA4, CK3, TROPN, LACT3, MDIFF, PCAL #### [address] Platelet mean volume Entitic volume (Bld) 8.5 fL Normal 7.4-10.4 [facility] Comment on above: Performed By: #### H EMDF, NH33, PT, CMP3, LIPA4, CK3, TROPN, LACT3, MDIFF, PCAL #### [address] Platelets #/vol (Bld) 185 10*3/uL Normal 140-440 [facility] Comment on above: Performed By: #### H EMDF, NH33, PT, CMP3, LIPA4, CK3, TROPN, LACT3, MDIFF, PCAL #### [address] RBC #/vol (Bld) 3.14 10*6/uL Low 4.40-5.90 [facility] Comment on above: Performed By: #### H EMDF, NH33, PT, CMP3, LIPA4, CK3, TROPN, LACT3, MDIFF, PCAL #### [address] WBC #/vol (Bld) 7.4 10*3/uL Normal 3.6-10.7 [facility] Comment on above: Performed By: #### H EMDF, NH33, PT, CMP3, LIPA4, CK3, TROPN, LACT3, MDIFF, PCAL #### [address] Magnesiumon 12-11-2018 Magnesium mass conc 1.8 mg/dL Normal 1.6-2.3 [facility] Comment on above: Performed By: #### H EMDF, NH33, PT, CMP3, LIPA4, CK3, TROPN, LACT3, MDIFF, PCAL #### [address] Basic Metabolic Panelon 11-23 Anion gap molar conc 5 Normal [facility] Comment on above: Performed By: #### H EMDF, NH33, PT, CMP3, LIPA4, CK3, TROPN, LACT3, MDIFF, PCAL #### [address] [address] [place] Calcium mass conc 8.3 mg/dL Low 8.4-10.4 [facility] Comment on above: Performed By: #### H EMDF, NH33, PT, CMP3, LIPA4, CK3, TROPN, LACT3, MDIFF, PCAL #### [address] [address] [place] CO2 molar conc 29 mmol/L Normal 22-30 [facility] Comment on above: Performed By: #### H EMDF, NH33, PT, CMP3, LIPA4, CK3, TROPN, LACT3, MDIFF, PCAL #### [address] [address] [place] Glucose mass conc 111 mg/dL High 70-100 [facility] Comment on above: Performed By: #### H EMDF, NH33, PT, CMP3, LIPA4, CK3, TROPN, LACT3, MDIFF, PCAL #### [address] [address] [place] Urea nitrogen mass conc 30 mg/dL High 7-20 [facility] Comment on above: Performed By: #### H EMDF, NH33, PT, CMP3, LIPA4, CK3, TROPN, LACT3, MDIFF, PCAL #### [address] [address] [place] Creatinine mass conc 1.40 mg/dL High 0.52-1.25 [facility] Comment on above: Performed By: #### H EMDF, NH33, PT, CMP3, LIPA4, CK3, TROPN, LACT3, MDIFF, PCAL #### [address] [address] [place] GFR/1.73 sq M predicted among blacks MDRD vol rate/area (S/P/Bld) 59.0 mL/min/{1.73_m2} Normal >60 [facility] Comment on above: Performed By: #### H EMDF, NH33, PT, CMP3, LIPA4, CK3, TROPN, LACT3, MDIFF, PCAL #### [address] [address] [place] GFR/1.73 sq M predicted among non-blacks MDRD vol rate/area (S/P/Bld) 48.7 mL/min/{1.73_m2} Normal >60 [facility] Comment on above: Result Comment: Sour ce- MDRD equation with creatinine calibration to IDMS(NKDEP) eGFR not recommended for drug dose adjustment Performed By: #### H EMDF, NH33, PT, CMP3, LIPA4, CK3, TROPN, LACT3, MDIFF, PCAL #### [address] [address] [place] Chloride molar conc 107 mmol/L Normal 98-107 [facility] Comment on above: Performed By: #### H EMDF, NH33, PT, CMP3, LIPA4, CK3, TROPN, LACT3, MDIFF, PCAL #### [address] [address] [place] Potassium molar conc 3.5 mmol/L Normal 3.5-5.1 [facility] Comment on above: Performed By: #### H EMDF, NH33, PT, CMP3, LIPA4, CK3, TROPN, LACT3, MDIFF, PCAL #### [address] Sodium molar conc 141 mmol/L Normal 135-145 [facility] Comment on above: Performed By: #### H EMDF, NH33, PT, CMP3, LIPA4, CK3, TROPN, LACT3, MDIFF, PCAL #### [address] Hemogram w/ Autodiffon 12-10 Abs Baso Cnt 0.0 10*3/uL Normal 0.0-0.2 [facility] Comment on above: Performed By: #### H EMDF, NH33, PT, CMP3, LIPA4, CK3, TROPN, LACT3, MDIFF, PCAL #### [address] [address] [place] Abs Neutrophile Cnt 4.7 10*3/uL Normal 1.8-7.0 [facility] Comment on above: Performed By: #### H EMDF, NH33, PT, CMP3, LIPA4, CK3, TROPN, LACT3, MDIFF, PCAL #### [address] [address] [place] Basophils/100 WBC (Bld) 0.5 % Normal 0.0-2.0 [facility] Comment on above: Performed By: #### H EMDF, NH33, PT, CMP3, LIPA4, CK3, TROPN, LACT3, MDIFF, PCAL #### [address] Eosinophils #/vol (Bld) 0.3 10*3/uL Normal 0.0-0.5 [facility] Comment on above: Performed By: #### H EMDF, NH33, PT, CMP3, LIPA4, CK3, TROPN, LACT3, MDIFF, PCAL #### [address] Eosinophils/100 WBC (Bld) 3.7 % Normal 1.0-6.0 [facility] Comment on above: Performed By: #### H EMDF, NH33, PT, CMP3, LIPA4, CK3, TROPN, LACT3, MDIFF, PCAL #### [address] Erythrocyte distribution width Ratio (RBC) 15.1 % High 11.5-14.5 [facility] Comment on above: Performed By: #### H EMDF, NH33, PT, CMP3, LIPA4, CK3, TROPN, LACT3, MDIFF, PCAL #### [address] Granulocytes/100 WBC (Bld) 57.9 % Normal 40.0-80.0 [facility] Comment on above: Performed By: #### H EMDF, NH33, PT, CMP3, LIPA4, CK3, TROPN, LACT3, MDIFF, PCAL #### [address] Hematocrit Volume Fraction (Bld) 31.4 % Low 40.0-52.0 [facility] Comment on above: Performed By: #### H EMDF, NH33, PT, CMP3, LIPA4, CK3, TROPN, LACT3, MDIFF, PCAL #### [address] Hemoglobin mass conc (Bld) 10.4 g/dL Low 13.0-18.0 [facility] Comment on above: Performed By: #### H EMDF, NH33, PT, CMP3, LIPA4, CK3, TROPN, LACT3, MDIFF, PCAL #### [address] Lymphocytes #/vol (Bld) 1.9 10*3/uL Normal 1.0-4.3 [facility] Comment on above: Performed By: #### H EMDF, NH33, PT, CMP3, LIPA4, CK3, TROPN, LACT3, MDIFF, PCAL #### [address] Lymphocytes/100 WBC (Bld) 23.1 % Normal 20.0-40.0 [facility] Comment on above: Performed By: #### H EMDF, NH33, PT, CMP3, LIPA4, CK3, TROPN, LACT3, MDIFF, PCAL #### [address] MCH Entitic mass (RBC) 28.7 pg Normal 26.0-34.0 [facility] Comment on above: Performed By: #### H EMDF, NH33, PT, CMP3, LIPA4, CK3, TROPN, LACT3, MDIFF, PCAL #### [address] MCHC mass conc (RBC) 33.0 % Normal 32.0-36.0 [facility] Comment on above: Performed By: #### H EMDF, NH33, PT, CMP3, LIPA4, CK3, TROPN, LACT3, MDIFF, PCAL #### [address] [address] [place] MCV Entitic volume (RBC) 86.9 fL Normal 80.0-98.0 [facility] Comment on above: Performed By: #### H EMDF, NH33, PT, CMP3, LIPA4, CK3, TROPN, LACT3, MDIFF, PCAL #### [address] [address] [place] Monocytes #/vol (Bld) 1.2 10*3/uL High 0.0-0.8 [facility] Comment on above: Performed By: #### H EMDF, NH33, PT, CMP3, LIPA4, CK3, TROPN, LACT3, MDIFF, PCAL #### [address] Monocytes/100 WBC (Bld) 14.8 % High 2.0-10.0 [facility] Comment on above: Performed By: #### H EMDF, NH33, PT, CMP3, LIPA4, CK3, TROPN, LACT3, MDIFF, PCAL #### [address] Platelet mean volume Entitic volume (Bld) 8.6 fL Normal 7.4-10.4 [facility] Comment on above: Performed By: #### H EMDF, NH33, PT, CMP3, LIPA4, CK3, TROPN, LACT3, MDIFF, PCAL #### [address] Platelets #/vol (Bld) 206 10*3/uL Normal 140-440 [facility] Comment on above: Performed By: #### H EMDF, NH33, PT, CMP3, LIPA4, CK3, TROPN, LACT3, MDIFF, PCAL #### [address] RBC #/vol (Bld) 3.61 10*6/uL Low 4.40-5.90 [facility] Comment on above: Performed By: #### H EMDF, NH33, PT, CMP3, LIPA4, CK3, TROPN, LACT3, MDIFF, PCAL #### [address] [address] [place] WBC #/vol (Bld) 8.1 10*3/uL Normal 3.6-10.7 [facility] Comment on above: Performed By: #### H EMDF, NH33, PT, CMP3, LIPA4, CK3, TROPN, LACT3, MDIFF, PCAL #### [address] [address] [place] Magnesiumon 12-10-2018 Magnesium mass conc 1.9 mg/dL Normal 1.6-2.3 [facility] Comment on above: Performed By: #### H EMDF, NH33, PT, CMP3, LIPA4, CK3, TROPN, LACT3, MDIFF, PCAL #### [address] [address] [place] Basic Metabolic Panelon 11-23 Calcium mass conc 8.0 mg/dL Low 8.4-10.4 [facility] Comment on above: Performed By: #### H EMDF, NH33, PT, CMP3, LIPA4, CK3, TROPN, LACT3, MDIFF, PCAL #### [address] [address] [place] Glucose mass conc 128 mg/dL High 70-100 [facility] Comment on above: Performed By: #### H EMDF, NH33, PT, CMP3, LIPA4, CK3, TROPN, LACT3, MDIFF, PCAL #### [address] Anion gap molar conc 5 Normal [facility] Comment on above: Performed By: #### H EMDF, NH33, PT, CMP3, LIPA4, CK3, TROPN, LACT3, MDIFF, PCAL #### [address] [address] [place] CO2 molar conc 33 mmol/L High 22-30 [facility] Comment on above: Performed By: #### H EMDF, NH33, PT, CMP3, LIPA4, CK3, TROPN, LACT3, MDIFF, PCAL #### [address] Creatinine mass conc 1.43 mg/dL High 0.52-1.25 [facility] Comment on above: Performed By: #### H EMDF, NH33, PT, CMP3, LIPA4, CK3, TROPN, LACT3, MDIFF, PCAL #### [address] [address] [place] [address] GFR/1.73 sq M predicted among blacks MDRD vol rate/area (S/P/Bld) 57.6 mL/min/{1.73_m2} Normal >60 [facility] Comment on above: Performed By: #### H EMDF, NH33, PT, CMP3, LIPA4, CK3, TROPN, LACT3, MDIFF, PCAL #### [address] GFR/1.73 sq M predicted among non-blacks MDRD vol rate/area (S/P/Bld) 47.5 mL/min/{1.73_m2} Normal >60 [facility] Comment on above: Result Comment: Sour ce- MDRD equation with creatinine calibration to IDMS(NKDEP) eGFR not recommended for drug dose adjustment Performed By: #### H EMDF, NH33, PT, CMP3, LIPA4, CK3, TROPN, LACT3, MDIFF, PCAL #### [address] Urea nitrogen mass conc 37 mg/dL High 7-20 [facility] Comment on above: Performed By: #### H EMDF, NH33, PT, CMP3, LIPA4, CK3, TROPN, LACT3, MDIFF, PCAL #### [address] [id number] Potassium molar conc 3.3 mmol/L Low 3.5-5.1 [facility] Comment on above: Performed By: #### H EMDF, NH33, PT, CMP3, LIPA4, CK3, TROPN, LACT3, MDIFF, PCAL #### [facility] [address] [place] [address] Chloride molar conc 107 mmol/L Normal 98-107 [facility] Comment on above: Performed By: #### H EMDF, NH33, PT, CMP3, LIPA4, CK3, TROPN, LACT3, MDIFF, PCAL #### [facility] [address] [place] [address] Sodium molar conc 144 mmol/L Normal 135-145 [facility] Comment on above: Performed By: #### H EMDF, NH33, PT, CMP3, LIPA4, CK3, TROPN, LACT3, MDIFF, PCAL #### [facility] [address] [place] [address] CR Abdomen APon 12-09-2018 CR Abdomen AP Patient Name: ELIAS SHAH Diagnostic Radiology Exam Date/Time 12/09/2018 08:27:17 EST Exam CR Abdomen AP Ordering Physician JIM MILLER Accession Number [id number] CPT4 Codes [id number] () Reason For Exam ileus Report Indication: [...] Transcribed Date and Time: 12/09/2018 11:38 Normal [facility] Hemogram w/ Autodiffon 12-09 Abs Baso Cnt 0.0 10*3/uL Normal 0.0-0.2 [facility] Comment on above: Performed By: #### H EMDF, NH33, PT, CMP3, LIPA4, CK3, TROPN, LACT3, MDIFF, PCAL #### [address] Abs Neutrophile Cnt 4.0 10*3/uL Normal 1.8-7.0 [facility] Comment on above: Performed By: #### H EMDF, NH33, PT, CMP3, LIPA4, CK3, TROPN, LACT3, MDIFF, PCAL #### [address] Basophils/100 WBC (Bld) 0.2 % Normal 0.0-2.0 [facility] Comment on above: Performed By: #### H EMDF, NH33, PT, CMP3, LIPA4, CK3, TROPN, LACT3, MDIFF, PCAL #### [address] Eosinophils #/vol (Bld) 0.2 10*3/uL Normal 0.0-0.5 [facility] Comment on above: Performed By: #### H EMDF, NH33, PT, CMP3, LIPA4, CK3, TROPN, LACT3, MDIFF, PCAL #### [address] Eosinophils/100 WBC (Bld) 2.9 % Normal 1.0-6.0 [facility] Comment on above: Performed By: #### H EMDF, NH33, PT, CMP3, LIPA4, CK3, TROPN, LACT3, MDIFF, PCAL #### [address] Erythrocyte distribution width Ratio (RBC) 15.4 % High 11.5-14.5 [facility] Comment on above: Performed By: #### H EMDF, NH33, PT, CMP3, LIPA4, CK3, TROPN, LACT3, MDIFF, PCAL #### [address] Granulocytes/100 WBC (Bld) 55.9 % Normal 40.0-80.0 [facility] Comment on above: Performed By: #### H EMDF, NH33, PT, CMP3, LIPA4, CK3, TROPN, LACT3, MDIFF, PCAL #### [address] Hematocrit Volume Fraction (Bld) 28.7 % Low 40.0-52.0 [facility] Comment on above: Performed By: #### H EMDF, NH33, PT, CMP3, LIPA4, CK3, TROPN, LACT3, MDIFF, PCAL #### [address] Hemoglobin mass conc (Bld) 9.4 g/dL Low 13.0-18.0 [facility] Comment on above: Performed By: #### H EMDF, NH33, PT, CMP3, LIPA4, CK3, TROPN, LACT3, MDIFF, PCAL #### [address] Lymphocytes #/vol (Bld) 1.6 10*3/uL Normal 1.0-4.3 [facility] Comment on above: Performed By: #### H EMDF, NH33, PT, CMP3, LIPA4, CK3, TROPN, LACT3, MDIFF, PCAL #### [address] Lymphocytes/100 WBC (Bld) 23.2 % Normal 20.0-40.0 [facility] Comment on above: Performed By: #### H EMDF, NH33, PT, CMP3, LIPA4, CK3, TROPN, LACT3, MDIFF, PCAL #### [address] MCH Entitic mass (RBC) 28.6 pg Normal 26.0-34.0 [facility] Comment on above: Performed By: #### H EMDF, NH33, PT, CMP3, LIPA4, CK3, TROPN, LACT3, MDIFF, PCAL #### [address] MCHC mass conc (RBC) 32.8 % Normal 32.0-36.0 [facility] Comment on above: Performed By: #### H EMDF, NH33, PT, CMP3, LIPA4, CK3, TROPN, LACT3, MDIFF, PCAL #### [address] MCV Entitic volume (RBC) 87.1 fL Normal 80.0-98.0 [facility] Comment on above: Performed By: #### H EMDF, NH33, PT, CMP3, LIPA4, CK3, TROPN, LACT3, MDIFF, PCAL #### [address] Monocytes #/vol (Bld) 1.3 10*3/uL High 0.0-0.8 [facility] Comment on above: Performed By: #### H EMDF, NH33, PT, CMP3, LIPA4, CK3, TROPN, LACT3, MDIFF, PCAL #### [address] Monocytes/100 WBC (Bld) 17.8 % High 2.0-10.0 [facility] Comment on above: Performed By: #### H EMDF, NH33, PT, CMP3, LIPA4, CK3, TROPN, LACT3, MDIFF, PCAL #### [address] Platelet mean volume Entitic volume (Bld) 8.8 fL Normal 7.4-10.4 [facility] Comment on above: Performed By: #### H EMDF, NH33, PT, CMP3, LIPA4, CK3, TROPN, LACT3, MDIFF, PCAL #### [address] Platelets #/vol (Bld) 179 10*3/uL Normal 140-440 [facility] Comment on above: Performed By: #### H EMDF, NH33, PT, CMP3, LIPA4, CK3, TROPN, LACT3, MDIFF, PCAL #### [address] [address] [place] RBC #/vol (Bld) 3.30 10*6/uL Low 4.40-5.90 [facility] Comment on above: Performed By: #### H EMDF, NH33, PT, CMP3, LIPA4, CK3, TROPN, LACT3, MDIFF, PCAL #### [address] WBC #/vol (Bld) 7.1 10*3/uL Normal 3.6-10.7 [facility] Comment on above: Performed By: #### H EMDF, NH33, PT, CMP3, LIPA4, CK3, TROPN, LACT3, MDIFF, PCAL #### [address] Magnesiumon 12-09-2018 Magnesium mass conc 2.1 mg/dL Normal 1.6-2.3 [facility] Comment on above: Performed By: #### H EMDF, NH33, PT, CMP3, LIPA4, CK3, TROPN, LACT3, MDIFF, PCAL #### [address] Phosphoruson 12-09-2018 Phosphate mass conc 2.7 mg/dL Normal 2.5-4.5 [facility] Comment on above: Performed By: #### H EMDF, NH33, PT, CMP3, LIPA4, CK3, TROPN, LACT3, MDIFF, PCAL #### [address] Uric Acidon 12-09-2018 Urate mass conc 5.7 mg/dL Normal 2.5-8.5 [facility] Comment on above: Performed By: #### H EMDF, NH33, PT, CMP3, LIPA4, CK3, TROPN, LACT3, MDIFF, PCAL #### [address] [place] [address] [address] [place], [place] Basic Metabolic Panelon 11-23 Calcium mass conc 8.5 mg/dL Normal 8.4-10.4 [facility] Comment on above: Performed By: #### H EMDF, NH33, PT, CMP3, LIPA4, CK3, TROPN, LACT3, MDIFF, PCAL #### [address] [address] [address] [place], [place] Glucose mass conc 83 mg/dL Normal 70-100 [facility] Comment on above: Performed By: #### H EMDF, NH33, PT, CMP3, LIPA4, CK3, TROPN, LACT3, MDIFF, PCAL #### [address] [address] [place], [place] Urea nitrogen mass conc 53 mg/dL High 7-20 [facility] Comment on above: Performed By: #### H EMDF, NH33, PT, CMP3, LIPA4, CK3, TROPN, LACT3, MDIFF, PCAL #### [address] [address] [address] [place], [place] Anion gap molar conc 6 Normal [facility] Comment on above: Performed By: #### H EMDF, NH33, PT, CMP3, LIPA4, CK3, TROPN, LACT3, MDIFF, PCAL #### [address] [place] [address] [place], [place] CO2 molar conc 34 mmol/L High 22-30 [facility] Comment on above: Performed By: #### H EMDF, NH33, PT, CMP3, LIPA4, CK3, TROPN, LACT3, MDIFF, PCAL #### [address] [place] [address] [place], [place] Creatinine mass conc 1.81 mg/dL High 0.52-1.25 [facility] Comment on above: Performed By: #### H EMDF, NH33, PT, CMP3, LIPA4, CK3, TROPN, LACT3, MDIFF, PCAL #### [address] [address] [place], [place] GFR/1.73 sq M predicted among blacks MDRD vol rate/area (S/P/Bld) 43.9 mL/min/{1.73_m2} Normal >60 [facility] Comment on above: Performed By: #### H EMDF, NH33, PT, CMP3, LIPA4, CK3, TROPN, LACT3, MDIFF, PCAL #### [address] GFR/1.73 sq M predicted among non-blacks MDRD vol rate/area (S/P/Bld) 36.2 mL/min/{1.73_m2} Normal >60 [facility] Comment on above: Result Comment: Sour ce- MDRD equation with creatinine calibration to IDMS(NKDEP) eGFR not recommended for drug dose adjustment Performed By: #### H EMDF, NH33, PT, CMP3, LIPA4, CK3, TROPN, LACT3, MDIFF, PCAL #### [address] Potassium molar conc 3.3 mmol/L Low 3.5-5.1 [facility] Comment on above: Performed By: #### H EMDF, NH33, PT, CMP3, LIPA4, CK3, TROPN, LACT3, MDIFF, PCAL #### [address] Chloride molar conc 105 mmol/L Normal 98-107 [facility] Comment on above: Performed By: #### H EMDF, NH33, PT, CMP3, LIPA4, CK3, TROPN, LACT3, MDIFF, PCAL #### [address] Sodium molar conc 145 mmol/L Normal 135-145 [facility] Comment on above: Performed By: #### H EMDF, NH33, PT, CMP3, LIPA4, CK3, TROPN, LACT3, MDIFF, PCAL #### [address] CR Abdomen APon 12-08-2018 CR Abdomen AP Patient Name: ELIAS SHAH Diagnostic Radiology Exam Date/Time 12/08/2018 09:33:11 EST Exam CR Abdomen AP Ordering Physician JIM MILLER Accession Number [id number] CPT4 Codes 77356 () Reason For Exam ileus Report Indication: Possible ileus. Supine view of the abdomen and pelvis timed 0924 was obtained with no prior studies available for comparison. Canon overlie the midline of the lower abdomen. [...] Transcribed Date and Time: 12/08/2018 10:18 Normal [facility] CR Chest Portableon 12-08-19 CR Chest Portable Patient Name: ELIAS SHAH Diagnostic Radiology Exam Date/Time 12/08/2018 06:59:28 EST Exam CR Chest Portable Ordering Physician KEE GARNICA HEATHER Accession Number [id number] CPT4 Codes 56773 () Reason For Exam pna Report EXAM [...] Transcribed Date and Time: 12/08/2018 7:10 Normal [facility] Hemogram w/ Autodiffon 12-08 Erythrocyte distribution width Ratio (RBC) 15.0 % High 11.5-14.5 [facility] Comment on above: Performed By: #### H EMDF, NH33, PT, CMP3, LIPA4, CK3, TROPN, LACT3, MDIFF, PCAL #### [address] [place] [address] Hematocrit Volume Fraction (Bld) 31.5 % Low 40.0-52.0 [facility] Comment on above: Performed By: #### H EMDF, NH33, PT, CMP3, LIPA4, CK3, TROPN, LACT3, MDIFF, PCAL #### [address] [place] [address] Hemoglobin mass conc (Bld) 10.3 g/dL Low 13.0-18.0 [facility] Comment on above: Performed By: #### H EMDF, NH33, PT, CMP3, LIPA4, CK3, TROPN, LACT3, MDIFF, PCAL #### [address] [place], [place] MCH Entitic mass (RBC) 28.5 pg Normal 26.0-34.0 [facility] Comment on above: Performed By: #### H EMDF, NH33, PT, CMP3, LIPA4, CK3, TROPN, LACT3, MDIFF, PCAL #### [address] [place], [place] MCHC mass conc (RBC) 32.6 % Normal 32.0-36.0 [facility] Comment on above: Performed By: #### H EMDF, NH33, PT, CMP3, LIPA4, CK3, TROPN, LACT3, MDIFF, PCAL #### [address] MCV Entitic volume (RBC) 87.3 fL Normal 80.0-98.0 [facility] Comment on above: Performed By: #### H EMDF, NH33, PT, CMP3, LIPA4, CK3, TROPN, LACT3, MDIFF, PCAL #### [address] Platelet mean volume Entitic volume (Bld) 8.7 fL Normal 7.4-10.4 [facility] Comment on above: Performed By: #### H EMDF, NH33, PT, CMP3, LIPA4, CK3, TROPN, LACT3, MDIFF, PCAL #### [address] Platelets #/vol (Bld) 202 10*3/uL Normal 140-440 [facility] Comment on above: Performed By: #### H EMDF, NH33, PT, CMP3, LIPA4, CK3, TROPN, LACT3, MDIFF, PCAL #### [address] RBC #/vol (Bld) 3.61 10*6/uL Low 4.40-5.90 [facility] Comment on above: Performed By: #### H EMDF, NH33, PT, CMP3, LIPA4, CK3, TROPN, LACT3, MDIFF, PCAL #### [address] WBC #/vol (Bld) 7.4 10*3/uL Normal 3.6-10.7 [facility] Comment on above: Performed By: #### H EMDF, NH33, PT, CMP3, LIPA4, CK3, TROPN, LACT3, MDIFF, PCAL #### [address] Magnesiumon 12-08-2018 Magnesium mass conc 2.4 mg/dL High 1.6-2.3 [facility] Comment on above: Performed By: #### H EMDF, NH33, PT, CMP3, LIPA4, CK3, TROPN, LACT3, MDIFF, PCAL #### [address] [address] Manual Diffon 12-08-2018 Abs Neutrophile Cnt 5.5 10*3/uL Normal 2.2-8.2 [facility] Comment on above: Performed By: #### H EMDF, NH33, PT, CMP3, LIPA4, CK3, TROPN, LACT3, MDIFF, PCAL #### [address] [address] Basophils/100 WBC (Bld) 0 % Normal 0-2 [facility] Comment on above: Performed By: #### H EMDF, NH33, PT, CMP3, LIPA4, CK3, TROPN, LACT3, MDIFF, PCAL #### [address] Comment: SLIDE SCANNED Normal [facility] Comment on above: Performed By: #### H EMDF, NH33, PT, CMP3, LIPA4, CK3, TROPN, LACT3, MDIFF, PCAL #### [address] Eosinophils #/vol (Bld) 0.1 10*3/uL Normal 0.0-0.5 [facility] Comment on above: Performed By: #### H EMDF, NH33, PT, CMP3, LIPA4, CK3, TROPN, LACT3, MDIFF, PCAL #### [address] Eosinophils/100 WBC (Bld) 1 % Normal [facility] Comment on above: Performed By: #### H EMDF, NH33, PT, CMP3, LIPA4, CK3, TROPN, LACT3, MDIFF, PCAL #### [address] Lymphocytes #/vol (Bld) 0.8 10*3/uL Low 1.1-4.5 [facility] Comment on above: Performed By: #### H EMDF, NH33, PT, CMP3, LIPA4, CK3, TROPN, LACT3, MDIFF, PCAL #### [address] [place] [address] Lymphocytes/100 WBC (Bld) 11 % Normal [facility] Comment on above: Performed By: #### H EMDF, NH33, PT, CMP3, LIPA4, CK3, TROPN, LACT3, MDIFF, PCAL #### [address] [place], [place] Monocytes #/vol (Bld) 1.0 10*3/uL Normal 0.2-1.1 [facility] Comment on above: Performed By: #### H EMDF, NH33, PT, CMP3, LIPA4, CK3, TROPN, LACT3, MDIFF, PCAL #### [address] [place], [place] Monocytes/100 WBC (Bld) 14 % Normal [facility] Comment on above: Performed By: #### H EMDF, NH33, PT, CMP3, LIPA4, CK3, TROPN, LACT3, MDIFF, PCAL #### [address] Ovalocytes SLIGHT Normal [facility] Comment on above: Performed By: #### H EMDF, NH33, PT, CMP3, LIPA4, CK3, TROPN, LACT3, MDIFF, PCAL #### [address] [place] Poikilocytosis SLIGHT Normal [facility] Comment on above: Performed By: #### H EMDF, NH33, PT, CMP3, LIPA4, CK3, TROPN, LACT3, MDIFF, PCAL #### [address] RBC morphology finding Nom (Bld) ABNORMAL Normal [facility] Comment on above: Performed By: #### H EMDF, NH33, PT, CMP3, LIPA4, CK3, TROPN, LACT3, MDIFF, PCAL #### [address] [place], [place] Seg Neutrophils 74 % Normal [facility] Comment on above: Performed By: #### H EMDF, NH33, PT, CMP3, LIPA4, CK3, TROPN, LACT3, MDIFF, PCAL #### [address] [place], [place] Abs Baso Cnt 0.0 10*3/uL Normal 0.0-0.2 [facility] Comment on above: Performed By: #### H EMDF, NH33, PT, CMP3, LIPA4, CK3, TROPN, LACT3, MDIFF, PCAL #### [address] Bands 0 % Normal 0-3 [facility] Comment on above: Performed By: #### H EMDF, NH33, PT, CMP3, LIPA4, CK3, TROPN, LACT3, MDIFF, PCAL #### [address] [place], [place] Cells counted 100 Normal [facility] Comment on above: Performed By: #### H EMDF, NH33, PT, CMP3, LIPA4, CK3, TROPN, LACT3, MDIFF, PCAL #### [address] Phosphoruson 12-08-2018 Phosphate mass conc 2.8 mg/dL Normal 2.5-4.5 [facility] Comment on above: Performed By: #### H EMDF, NH33, PT, CMP3, LIPA4, CK3, TROPN, LACT3, MDIFF, PCAL #### [address] Basic Metabolic Panelon 11-23 Anion gap molar conc 7 Normal [facility] Comment on above: Performed By: #### H EMDF, NH33, PT, CMP3, LIPA4, CK3, TROPN, LACT3, MDIFF, PCAL #### [address] [place], [place] Calcium mass conc 8.6 mg/dL Normal 8.4-10.4 [facility] Comment on above: Performed By: #### H EMDF, NH33, PT, CMP3, LIPA4, CK3, TROPN, LACT3, MDIFF, PCAL #### [address] CO2 molar conc 36 mmol/L High 22-30 [facility] Comment on above: Performed By: #### H EMDF, NH33, PT, CMP3, LIPA4, CK3, TROPN, LACT3, MDIFF, PCAL #### [address] Glucose mass conc 89 mg/dL Normal 70-100 [facility] Comment on above: Performed By: #### H EMDF, NH33, PT, CMP3, LIPA4, CK3, TROPN, LACT3, MDIFF, PCAL #### [address] [place] Urea nitrogen mass conc 75 mg/dL High 7-20 [facility] Comment on above: Performed By: #### H EMDF, NH33, PT, CMP3, LIPA4, CK3, TROPN, LACT3, MDIFF, PCAL #### [address] Creatinine mass conc 2.75 mg/dL High 0.52-1.25 [facility] Comment on above: Performed By: #### H EMDF, NH33, PT, CMP3, LIPA4, CK3, TROPN, LACT3, MDIFF, PCAL #### [address] GFR/1.73 sq M predicted among blacks MDRD vol rate/area (S/P/Bld) 27.1 mL/min/{1.73_m2} Normal >60 [facility] Comment on above: Performed By: #### H EMDF, NH33, PT, CMP3, LIPA4, CK3, TROPN, LACT3, MDIFF, PCAL #### [facility] [address] [place] [address] GFR/1.73 sq M predicted among non-blacks MDRD vol rate/area (S/P/Bld) 22.3 mL/min/{1.73_m2} Normal >60 [facility] Comment on above: Result Comment: Sour ce- MDRD equation with creatinine calibration to IDMS(NKDEP) eGFR not recommended for drug dose adjustment Performed By: #### H EMDF, NH33, PT, CMP3, LIPA4, CK3, TROPN, LACT3, MDIFF, PCAL #### [facility] [address] [place] [address] Potassium molar conc 3.3 mmol/L Low 3.5-5.1 [facility] Comment on above: Performed By: #### H EMDF, NH33, PT, CMP3, LIPA4, CK3, TROPN, LACT3, MDIFF, PCAL #### [address] [place] [address] Sodium molar conc 142 mmol/L Normal 135-145 [facility] Comment on above: Performed By: #### H EMDF, NH33, PT, CMP3, LIPA4, CK3, TROPN, LACT3, MDIFF, PCAL #### [address] [place] [address] Chloride molar conc 100 mmol/L Normal 98-107 [facility] Comment on above: Performed By: #### H EMDF, NH33, PT, CMP3, LIPA4, CK3, TROPN, LACT3, MDIFF, PCAL #### [address] [place] [address] CR Chest Portableon 12-07-19 19 CR Chest Portable Patient Name: ELIAS SHAH Diagnostic Radiology Exam Date/Time 12/07/2018 07:13:20 EST Exam CR Chest Portable Ordering Physician KEE GARNICA HEATHER Accession Number [id number] CPT4 Codes 27078 () Reason For Exam pna Report Portable [...] Transcribed Date and Time: 12/07/2018 7:47 Normal [facility] CULTURE URINEon 12-07-2018 CULTURE URINE CULTURE URINE --> Status: F No growth (<1,000 CFU/ml). Normal [facility] Comment on above: Order Comment: Speci men Source Comment:Urine, straight catheter Performed By: #### H EMDF, NH33, PT, CMP3, LIPA4, CK3, TROPN, LACT3, MDIFF, PCAL #### [address] [address] Hemogram w/ Autodiffon 12-07 Abs Baso Cnt 0.0 10*3/uL Normal 0.0-0.2 [facility] Comment on above: Performed By: #### H EMDF, NH33, PT, CMP3, LIPA4, CK3, TROPN, LACT3, MDIFF, PCAL #### [address] Abs Neutrophile Cnt 5.0 10*3/uL Normal 1.8-7.0 [facility] Comment on above: Performed By: #### H EMDF, NH33, PT, CMP3, LIPA4, CK3, TROPN, LACT3, MDIFF, PCAL #### [address] [address] Basophils/100 WBC (Bld) 0.4 % Normal 0.0-2.0 [facility] Comment on above: Performed By: #### H EMDF, NH33, PT, CMP3, LIPA4, CK3, TROPN, LACT3, MDIFF, PCAL #### [address] [place] Eosinophils #/vol (Bld) 0.0 10*3/uL Normal 0.0-0.5 [facility] Comment on above: Performed By: #### H EMDF, NH33, PT, CMP3, LIPA4, CK3, TROPN, LACT3, MDIFF, PCAL #### [address] Eosinophils/100 WBC (Bld) 0.3 % Low 1.0-6.0 [facility] Comment on above: Performed By: #### H EMDF, NH33, PT, CMP3, LIPA4, CK3, TROPN, LACT3, MDIFF, PCAL #### [address] Erythrocyte distribution width Ratio (RBC) 15.4 % High 11.5-14.5 [facility] Comment on above: Performed By: #### H EMDF, NH33, PT, CMP3, LIPA4, CK3, TROPN, LACT3, MDIFF, PCAL #### [address] Granulocytes/100 WBC (Bld) 63.5 % Normal 40.0-80.0 [facility] Comment on above: Performed By: #### H EMDF, NH33, PT, CMP3, LIPA4, CK3, TROPN, LACT3, MDIFF, PCAL #### [address] Hematocrit Volume Fraction (Bld) 32.4 % Low 40.0-52.0 [facility] Comment on above: Performed By: #### H EMDF, NH33, PT, CMP3, LIPA4, CK3, TROPN, LACT3, MDIFF, PCAL #### [address] Hemoglobin mass conc (Bld) 10.7 g/dL Low 13.0-18.0 [facility] Comment on above: Performed By: #### H EMDF, NH33, PT, CMP3, LIPA4, CK3, TROPN, LACT3, MDIFF, PCAL #### [address] Lymphocytes #/vol (Bld) 1.4 10*3/uL Normal 1.0-4.3 [facility] Comment on above: Performed By: #### H EMDF, NH33, PT, CMP3, LIPA4, CK3, TROPN, LACT3, MDIFF, PCAL #### [address] Lymphocytes/100 WBC (Bld) 18.5 % Low 20.0-40.0 [facility] Comment on above: Performed By: #### H EMDF, NH33, PT, CMP3, LIPA4, CK3, TROPN, LACT3, MDIFF, PCAL #### [address] MCH Entitic mass (RBC) 28.7 pg Normal 26.0-34.0 [facility] Comment on above: Performed By: #### H EMDF, NH33, PT, CMP3, LIPA4, CK3, TROPN, LACT3, MDIFF, PCAL #### [address] MCHC mass conc (RBC) 33.0 % Normal 32.0-36.0 [facility] Comment on above: Performed By: #### H EMDF, NH33, PT, CMP3, LIPA4, CK3, TROPN, LACT3, MDIFF, PCAL #### [address] MCV Entitic volume (RBC) 87.2 fL Normal 80.0-98.0 [facility] Comment on above: Performed By: #### H EMDF, NH33, PT, CMP3, LIPA4, CK3, TROPN, LACT3, MDIFF, PCAL #### [address] Monocytes #/vol (Bld) 1.4 10*3/uL High 0.0-0.8 [facility] Comment on above: Performed By: #### H EMDF, NH33, PT, CMP3, LIPA4, CK3, TROPN, LACT3, MDIFF, PCAL #### [address] Monocytes/100 WBC (Bld) 17.3 % High 2.0-10.0 [facility] Comment on above: Performed By: #### H EMDF, NH33, PT, CMP3, LIPA4, CK3, TROPN, LACT3, MDIFF, PCAL #### [address] Platelet mean volume Entitic volume (Bld) 8.5 fL Normal 7.4-10.4 [facility] Comment on above: Performed By: #### H EMDF, NH33, PT, CMP3, LIPA4, CK3, TROPN, LACT3, MDIFF, PCAL #### [address] Platelets #/vol (Bld) 217 10*3/uL Normal 140-440 [facility] Comment on above: Performed By: #### H EMDF, NH33, PT, CMP3, LIPA4, CK3, TROPN, LACT3, MDIFF, PCAL #### [address] RBC #/vol (Bld) 3.72 10*6/uL Low 4.40-5.90 [facility] Comment on above: Performed By: #### H EMDF, NH33, PT, CMP3, LIPA4, CK3, TROPN, LACT3, MDIFF, PCAL #### [address] WBC #/vol (Bld) 7.8 10*3/uL Normal 3.6-10.7 [facility] Comment on above: Performed By: #### H EMDF, NH33, PT, CMP3, LIPA4, CK3, TROPN, LACT3, MDIFF, PCAL #### [address] Magnesiumon 01-15-2019 Magnesium mass conc 2.9 mg/dL High 1.6-2.3 [facility] Comment on above: Performed By: #### H EMDF, NH33, PT, CMP3, LIPA4, CK3, TROPN, LACT3, MDIFF, PCAL #### [address], [place] Phosphoruson 12-07-2018 Phosphate mass conc 3.2 mg/dL Normal 2.5-4.5 [facility] Comment on above: Performed By: #### H EMDF, NH33, PT, CMP3, LIPA4, CK3, TROPN, LACT3, MDIFF, PCAL #### [address], [place] Urinalysis,Macroon 9 Appearance Nom (U) cloudy Normal Clear [facility] Comment on above: Performed By: #### H EMDF, NH33, PT, CMP3, LIPA4, CK3, TROPN, LACT3, MDIFF, PCAL #### [address], [place] Bilirubin,Ur Negative Normal Negative [facility] Comment on above: Performed By: #### H EMDF, NH33, PT, CMP3, LIPA4, CK3, TROPN, LACT3, MDIFF, PCAL #### [address] [place], [place] Color Nom (U) red Normal Lt. Yellow [facility] Comment on above: Performed By: #### H EMDF, NH33, PT, CMP3, LIPA4, CK3, TROPN, LACT3, MDIFF, PCAL #### [address] [place], [place] Glucose Ql (U) 100 mg/dL Normal Negative [facility] Comment on above: Performed By: #### H EMDF, NH33, PT, CMP3, LIPA4, CK3, TROPN, LACT3, MDIFF, PCAL #### [address], [place] Ketone,Urine 3 + mg/dL Normal Negative [facility] Comment on above: Performed By: #### H EMDF, NH33, PT, CMP3, LIPA4, CK3, TROPN, LACT3, MDIFF, PCAL #### [address] Nitrite Ql (U) Negative Normal Negative [facility] Comment on above: Performed By: #### H EMDF, NH33, PT, CMP3, LIPA4, CK3, TROPN, LACT3, MDIFF, PCAL #### [address] Occult Blood,Ur 250 {RBC}/uL Normal Negative [facility] Comment on above: Performed By: #### H EMDF, NH33, PT, CMP3, LIPA4, CK3, TROPN, LACT3, MDIFF, PCAL #### [address] pH (U) 8.0 Normal 5.0-8.0 [facility] Comment on above: Performed By: #### H EMDF, NH33, PT, CMP3, LIPA4, CK3, TROPN, LACT3, MDIFF, PCAL #### [address] Protein mass conc (U) 75 mg/dL Normal Negative [facility] Comment on above: Performed By: #### H EMDF, NH33, PT, CMP3, LIPA4, CK3, TROPN, LACT3, MDIFF, PCAL #### [address] Specific [place],Urine 1.010 Normal 1.005-1.030 [facility] Comment on above: Performed By: #### H EMDF, NH33, PT, CMP3, LIPA4, CK3, TROPN, LACT3, MDIFF, PCAL #### [address] Urobilinogen Qn (U) NORM Normal 0-1 [facility] Comment on above: Performed By: #### H EMDF, NH33, PT, CMP3, LIPA4, CK3, TROPN, LACT3, MDIFF, PCAL #### [address] WBC #/vol (Bld) 1 + Normal Negative [facility] Comment on above: Performed By: #### H EMDF, NH33, PT, CMP3, LIPA4, CK3, TROPN, LACT3, MDIFF, PCAL #### [address] Urinalysis,Microscopicon Bacteria LM.HPF #/area (Urine sed) Moderate (6-50) Normal Negative [facility] Comment on above: Performed By: #### H EMDF, NH33, PT, CMP3, LIPA4, CK3, TROPN, LACT3, MDIFF, PCAL #### [address] Epithelial cells LM.HPF #/area (Urine sed) 0 - 2 Normal 3-5 [facility] Comment on above: Performed By: #### H EMDF, NH33, PT, CMP3, LIPA4, CK3, TROPN, LACT3, MDIFF, PCAL #### [address] RBC LM.HPF #/area (Urine sed) 51 - 100 Normal 0-2 [facility] Comment on above: Performed By: #### H EMDF, NH33, PT, CMP3, LIPA4, CK3, TROPN, LACT3, MDIFF, PCAL #### [address] Volume,Urine 8-12 ml Normal [facility] Comment on above: Performed By: #### H EMDF, NH33, PT, CMP3, LIPA4, CK3, TROPN, LACT3, MDIFF, PCAL #### [address] WBC LM.HPF #/area (Urine sed) 3 - 5 Normal 0-5 [facility] Comment on above: Performed By: #### H EMDF, NH33, PT, CMP3, LIPA4, CK3, TROPN, LACT3, MDIFF, PCAL #### [address] [address] [place], [place] Basic Metabolic Panelon 11-23 Anion gap molar conc 6 Normal [facility] Comment on above: Performed By: #### H EMDF, NH33, PT, CMP3, LIPA4, CK3, TROPN, LACT3, MDIFF, PCAL #### [address] [place] Calcium mass conc 8.6 mg/dL Normal 8.4-10.4 [facility] Comment on above: Performed By: #### H EMDF, NH33, PT, CMP3, LIPA4, CK3, TROPN, LACT3, MDIFF, PCAL #### [address] [place] CO2 molar conc 37 mmol/L High 22-30 [facility] Comment on above: Performed By: #### H EMDF, NH33, PT, CMP3, LIPA4, CK3, TROPN, LACT3, MDIFF, PCAL #### [address] [address] [place], [place] Glucose mass conc 97 mg/dL Normal 70-100 [facility] Comment on above: Performed By: #### H EMDF, NH33, PT, CMP3, LIPA4, CK3, TROPN, LACT3, MDIFF, PCAL #### [address] [address] [place], [place] Urea nitrogen mass conc 77 mg/dL High 7-20 [facility] Comment on above: Performed By: #### H EMDF, NH33, PT, CMP3, LIPA4, CK3, TROPN, LACT3, MDIFF, PCAL #### [address] [place] Creatinine mass conc 3.07 mg/dL High 0.52-1.25 [facility] Comment on above: Performed By: #### H EMDF, NH33, PT, CMP3, LIPA4, CK3, TROPN, LACT3, MDIFF, PCAL #### [facility] [address] [place] [address] GFR/1.73 sq M predicted among blacks MDRD vol rate/area (S/P/Bld) 23.8 mL/min/{1.73_m2} Normal >60 [facility] Comment on above: Performed By: #### H EMDF, NH33, PT, CMP3, LIPA4, CK3, TROPN, LACT3, MDIFF, PCAL #### [address] [place] [address] GFR/1.73 sq M predicted among non-blacks MDRD vol rate/area (S/P/Bld) 19.7 mL/min/{1.73_m2} Normal >60 [facility] Comment on above: Result Comment: Sour ce- MDRD equation with creatinine calibration to IDMS(NKDEP) eGFR not recommended for drug dose adjustment Performed By: #### H EMDF, NH33, PT, CMP3, LIPA4, CK3, TROPN, LACT3, MDIFF, PCAL #### [address] [place] [address] Potassium molar conc 3.4 mmol/L Low 3.5-5.1 [facility] Comment on above: Performed By: #### H EMDF, NH33, PT, CMP3, LIPA4, CK3, TROPN, LACT3, MDIFF, PCAL #### [address] [place] [address] Sodium molar conc 142 mmol/L Normal 135-145 [facility] Comment on above: Performed By: #### H EMDF, NH33, PT, CMP3, LIPA4, CK3, TROPN, LACT3, MDIFF, PCAL #### [address] [address] Chloride molar conc 99 mmol/L Normal 98-107 [facility] Comment on above: Performed By: #### H EMDF, NH33, PT, CMP3, LIPA4, CK3, TROPN, LACT3, MDIFF, PCAL #### [address] Calcium mass conc 8.7 mg/dL Normal 8.4-10.4 [facility] Comment on above: Performed By: #### H EMDF, NH33, PT, CMP3, LIPA4, CK3, TROPN, LACT3, MDIFF, PCAL #### [facility] [address] [place], [place] Glucose mass conc 106 mg/dL High 70-100 [facility] Comment on above: Performed By: #### H EMDF, NH33, PT, CMP3, LIPA4, CK3, TROPN, LACT3, MDIFF, PCAL #### [address] [address] [place] Anion gap molar conc 7 Normal [facility] Comment on above: Performed By: #### H EMDF, NH33, PT, CMP3, LIPA4, CK3, TROPN, LACT3, MDIFF, PCAL #### [address] [place] CO2 molar conc 36 mmol/L High 22-30 [facility] Comment on above: Performed By: #### H EMDF, NH33, PT, CMP3, LIPA4, CK3, TROPN, LACT3, MDIFF, PCAL #### [address] [place] Creatinine mass conc 3.58 mg/dL High 0.52-1.25 [facility] Comment on above: Performed By: #### H EMDF, NH33, PT, CMP3, LIPA4, CK3, TROPN, LACT3, MDIFF, PCAL #### [address] GFR/1.73 sq M predicted among blacks MDRD vol rate/area (S/P/Bld) 20.0 mL/min/{1.73_m2} Normal >60 [facility] Comment on above: Performed By: #### H EMDF, NH33, PT, CMP3, LIPA4, CK3, TROPN, LACT3, MDIFF, PCAL #### [place] [address] [place], [place] GFR/1.73 sq M predicted among non-blacks MDRD vol rate/area (S/P/Bld) 16.5 mL/min/{1.73_m2} Normal >60 [facility] Comment on above: Result Comment: Sour ce- MDRD equation with creatinine calibration to IDMS(NKDEP) eGFR not recommended for drug dose adjustment Performed By: #### H EMDF, NH33, PT, CMP3, LIPA4, CK3, TROPN, LACT3, MDIFF, PCAL #### [address] Urea nitrogen mass conc 79 mg/dL High 7-20 [facility] Comment on above: Performed By: #### H EMDF, NH33, PT, CMP3, LIPA4, CK3, TROPN, LACT3, MDIFF, PCAL #### [address] Chloride molar conc 97 mmol/L Low 98-107 [facility] Comment on above: Performed By: #### H EMDF, NH33, PT, CMP3, LIPA4, CK3, TROPN, LACT3, MDIFF, PCAL #### [address] Potassium molar conc 3.5 mmol/L Normal 3.5-5.1 [facility] Comment on above: Performed By: #### H EMDF, NH33, PT, CMP3, LIPA4, CK3, TROPN, LACT3, MDIFF, PCAL #### [address] Sodium molar conc 140 mmol/L Normal 135-145 [facility] Comment on above: Performed By: #### H EMDF, NH33, PT, CMP3, LIPA4, CK3, TROPN, LACT3, MDIFF, PCAL #### [address] Calcium mass conc 8.7 mg/dL Normal 8.4-10.4 [facility] Comment on above: Performed By: #### H EMDF, NH33, PT, CMP3, LIPA4, CK3, TROPN, LACT3, MDIFF, PCAL #### [place] [address] [place] Glucose mass conc 106 mg/dL High 70-100 [facility] Comment on above: Performed By: #### H EMDF, NH33, PT, CMP3, LIPA4, CK3, TROPN, LACT3, MDIFF, PCAL #### [place] [address] [place] Anion gap molar conc 9 Normal [facility] Comment on above: Performed By: #### H EMDF, NH33, PT, CMP3, LIPA4, CK3, TROPN, LACT3, MDIFF, PCAL #### [place] [address] [place] CO2 molar conc 35 mmol/L High 22-30 [facility] Comment on above: Performed By: #### H EMDF, NH33, PT, CMP3, LIPA4, CK3, TROPN, LACT3, MDIFF, PCAL #### [place] [address] [place] Creatinine mass conc 3.92 mg/dL High 0.52-1.25 [facility] Comment on above: Performed By: #### H EMDF, NH33, PT, CMP3, LIPA4, CK3, TROPN, LACT3, MDIFF, PCAL #### [place] [address] [place], [place] GFR/1.73 sq M predicted among blacks MDRD vol rate/area (S/P/Bld) 18.0 mL/min/{1.73_m2} Normal >60 [facility] Comment on above: Performed By: #### H EMDF, NH33, PT, CMP3, LIPA4, CK3, TROPN, LACT3, MDIFF, PCAL #### [address] GFR/1.73 sq M predicted among non-blacks MDRD vol rate/area (S/P/Bld) 14.8 mL/min/{1.73_m2} Normal >60 [facility] Comment on above: Result Comment: Sour ce- MDRD equation with creatinine calibration to IDMS(NKDEP) eGFR not recommended for drug dose adjustment Performed By: #### H EMDF, NH33, PT, CMP3, LIPA4, CK3, TROPN, LACT3, MDIFF, PCAL #### [facility] [address], [place] Urea nitrogen mass conc 82 mg/dL High 7-20 [facility] Comment on above: Performed By: #### H EMDF, NH33, PT, CMP3, LIPA4, CK3, TROPN, LACT3, MDIFF, PCAL #### [place] [address] [place], [place] Chloride molar conc 96 mmol/L Low 98-107 [facility] Comment on above: Performed By: #### H EMDF, NH33, PT, CMP3, LIPA4, CK3, TROPN, LACT3, MDIFF, PCAL #### [place] [address] [place], [place] Potassium molar conc 4.1 mmol/L Normal 3.5-5.1 [facility] Comment on above: Performed By: #### H EMDF, NH33, PT, CMP3, LIPA4, CK3, TROPN, LACT3, MDIFF, PCAL #### [place] [address] [place], [place] Sodium molar conc 140 mmol/L Normal 135-145 [facility] Comment on above: Performed By: #### H EMDF, NH33, PT, CMP3, LIPA4, CK3, TROPN, LACT3, MDIFF, PCAL #### [facility] [address], [place] Calcium mass conc 9.1 mg/dL Normal 8.4-10.4 [facility] Comment on above: Performed By: #### H EMDF, NH33, PT, CMP3, LIPA4, CK3, TROPN, LACT3, MDIFF, PCAL #### [place] [address] [place], [place] Glucose mass conc 123 mg/dL High 70-100 [facility] Comment on above: Performed By: #### H EMDF, NH33, PT, CMP3, LIPA4, CK3, TROPN, LACT3, MDIFF, PCAL #### [place] [address] [place], [place] Urea nitrogen mass conc 83 mg/dL High 7-20 [facility] Comment on above: Performed By: #### H EMDF, NH33, PT, CMP3, LIPA4, CK3, TROPN, LACT3, MDIFF, PCAL #### [place] [address] [place], [place] Anion gap molar conc 11 Normal [facility] Comment on above: Performed By: #### H EMDF, NH33, PT, CMP3, LIPA4, CK3, TROPN, LACT3, MDIFF, PCAL #### [address] [place], [place] CO2 molar conc 33 mmol/L High 22-30 [facility] Comment on above: Performed By: #### H EMDF, NH33, PT, CMP3, LIPA4, CK3, TROPN, LACT3, MDIFF, PCAL #### [place] [address] [place], [place] Creatinine mass conc 4.28 mg/dL High 0.52-1.25 [facility] Comment on above: Performed By: #### H EMDF, NH33, PT, CMP3, LIPA4, CK3, TROPN, LACT3, MDIFF, PCAL #### [place] [address] [place], [place] GFR/1.73 sq M predicted among blacks MDRD vol rate/area (S/P/Bld) 16.2 mL/min/{1.73_m2} Normal >60 [facility] Comment on above: Performed By: #### H EMDF, NH33, PT, CMP3, LIPA4, CK3, TROPN, LACT3, MDIFF, PCAL #### [address] [place], [place] GFR/1.73 sq M predicted among non-blacks MDRD vol rate/area (S/P/Bld) 13.4 mL/min/{1.73_m2} Normal >60 [facility] Comment on above: Result Comment: Sour ce- MDRD equation with creatinine calibration to IDMS(NKDEP) eGFR not recommended for drug dose adjustment Performed By: #### H EMDF, NH33, PT, CMP3, LIPA4, CK3, TROPN, LACT3, MDIFF, PCAL #### [facility] [address] [place] [address] Potassium molar conc 3.4 mmol/L Low 3.5-5.1 [facility] Comment on above: Performed By: #### H EMDF, NH33, PT, CMP3, LIPA4, CK3, TROPN, LACT3, MDIFF, PCAL #### [address] [address] [place] [address] Chloride molar conc 95 mmol/L Low 98-107 [facility] Comment on above: Performed By: #### H EMDF, NH33, PT, CMP3, LIPA4, CK3, TROPN, LACT3, MDIFF, PCAL #### [address] [place] [address] [place] [address] Sodium molar conc 139 mmol/L Normal 135-145 [facility] Comment on above: Performed By: #### H EMDF, NH33, PT, CMP3, LIPA4, CK3, TROPN, LACT3, MDIFF, PCAL #### [address] [place] [address] [place] [address] CR Chest Portableon 12-06-19 19 CR Chest Portable Patient Name: ELIAS SHAH Diagnostic Radiology Exam Date/Time 12/06/2018 06:25:16 EST Exam CR Chest Portable Ordering Physician KEE GARNICA HEATHER Accession Number [id number] CPT4 Codes 76772 () Reason For Exam pna Report CHEST [...] Transcribed Date and Time: 12/06/2018 8:10 Normal [facility] Echo Complete w/wo Contrasto n 12-06-2018 Echo Complete w/wo Contrast Patient Name: ELIAS SHAH Ultrasound Exam Date/Time 12/06/2018 10:17:48 EST Exam Echo Complete w/wo Contrast Ordering Physician KEE GARNICA HEATHER Accession Number [id number] Reason For Exam syncopal Report TRANSTHORACIC ECHOCARDIOGRAM PATIENT: Elias Shah STUDY DATE: 12/06/2018 : 1940 AGE: 78 HT/WT: 177.8 cm (70 82.6 kg (181.6 in) lb) GENDER: M BP: 136 / 68 LOCATION: [facility] PATIENT Inpatient [facility] STATUS: *ORDERING PHYSICIAN: * Patricia Garnica *READING PHYSICIAN: * José Miguel *APPLICATION DEVELOPMENT TEAM LEAD: Martin Merrill RDCS, Brenda GUZMAN MD RCS --- INDICATIONS: SYNCOPAL. --- CONCLUSIONS SUMMARY: 1. [...] Time: 12/06/2018 12:03 pm Signed by: MD GUTIERREZ STEPHEN A Normal [facility] Hemogram w/ Autodiffon 12-06 Abs Baso Cnt 0.0 10*3/uL Normal 0.0-0.2 [facility] Comment on above: Performed By: #### H EMDF, NH33, PT, CMP3, LIPA4, CK3, TROPN, LACT3, MDIFF, PCAL #### [facility] [address] [place], [place] [id number] Abs Neutrophile Cnt 7.3 10*3/uL High 1.8-7.0 [facility] Comment on above: Performed By: #### H EMDF, NH33, PT, CMP3, LIPA4, CK3, TROPN, LACT3, MDIFF, PCAL #### [address] Basophils/100 WBC (Bld) 0.3 % Normal 0.0-2.0 [facility] Comment on above: Performed By: #### H EMDF, NH33, PT, CMP3, LIPA4, CK3, TROPN, LACT3, MDIFF, PCAL #### [address] Eosinophils #/vol (Bld) 0.0 10*3/uL Normal 0.0-0.5 [facility] Comment on above: Performed By: #### H EMDF, NH33, PT, CMP3, LIPA4, CK3, TROPN, LACT3, MDIFF, PCAL #### [address] Eosinophils/100 WBC (Bld) 0.0 % Low 1.0-6.0 [facility] Comment on above: Performed By: #### H EMDF, NH33, PT, CMP3, LIPA4, CK3, TROPN, LACT3, MDIFF, PCAL #### [address] Erythrocyte distribution width Ratio (RBC) 15.4 % High 11.5-14.5 [facility] Comment on above: Performed By: #### H EMDF, NH33, PT, CMP3, LIPA4, CK3, TROPN, LACT3, MDIFF, PCAL #### [address] Granulocytes/100 WBC (Bld) 71.0 % Normal 40.0-80.0 [facility] Comment on above: Performed By: #### H EMDF, NH33, PT, CMP3, LIPA4, CK3, TROPN, LACT3, MDIFF, PCAL #### [address] Hematocrit Volume Fraction (Bld) 35.1 % Low 40.0-52.0 [facility] Comment on above: Performed By: #### H EMDF, NH33, PT, CMP3, LIPA4, CK3, TROPN, LACT3, MDIFF, PCAL #### [address] Hemoglobin mass conc (Bld) 11.6 g/dL Low 13.0-18.0 [facility] Comment on above: Performed By: #### H EMDF, NH33, PT, CMP3, LIPA4, CK3, TROPN, LACT3, MDIFF, PCAL #### [address] Lymphocytes #/vol (Bld) 1.3 10*3/uL Normal 1.0-4.3 [facility] Comment on above: Performed By: #### H EMDF, NH33, PT, CMP3, LIPA4, CK3, TROPN, LACT3, MDIFF, PCAL #### [address] Lymphocytes/100 WBC (Bld) 13.1 % Low 20.0-40.0 [facility] Comment on above: Performed By: #### H EMDF, NH33, PT, CMP3, LIPA4, CK3, TROPN, LACT3, MDIFF, PCAL #### [address] MCH Entitic mass (RBC) 28.5 pg Normal 26.0-34.0 [facility] Comment on above: Performed By: #### H EMDF, NH33, PT, CMP3, LIPA4, CK3, TROPN, LACT3, MDIFF, PCAL #### [address] MCHC mass conc (RBC) 33.1 % Normal 32.0-36.0 [facility] Comment on above: Performed By: #### H EMDF, NH33, PT, CMP3, LIPA4, CK3, TROPN, LACT3, MDIFF, PCAL #### [address] MCV Entitic volume (RBC) 86.2 fL Normal 80.0-98.0 [facility] Comment on above: Performed By: #### H EMDF, NH33, PT, CMP3, LIPA4, CK3, TROPN, LACT3, MDIFF, PCAL #### [address] [address], [place] Monocytes #/vol (Bld) 1.6 10*3/uL High 0.0-0.8 [facility] Comment on above: Performed By: #### H EMDF, NH33, PT, CMP3, LIPA4, CK3, TROPN, LACT3, MDIFF, PCAL #### [address] Monocytes/100 WBC (Bld) 15.6 % High 2.0-10.0 [facility] Comment on above: Performed By: #### H EMDF, NH33, PT, CMP3, LIPA4, CK3, TROPN, LACT3, MDIFF, PCAL #### [address] Platelet mean volume Entitic volume (Bld) 8.6 fL Normal 7.4-10.4 [facility] Comment on above: Performed By: #### H EMDF, NH33, PT, CMP3, LIPA4, CK3, TROPN, LACT3, MDIFF, PCAL #### [address] Platelets #/vol (Bld) 224 10*3/uL Normal 140-440 [facility] Comment on above: Performed By: #### H EMDF, NH33, PT, CMP3, LIPA4, CK3, TROPN, LACT3, MDIFF, PCAL #### [address] RBC #/vol (Bld) 4.07 10*6/uL Low 4.40-5.90 [facility] Comment on above: Performed By: #### H EMDF, NH33, PT, CMP3, LIPA4, CK3, TROPN, LACT3, MDIFF, PCAL #### [address] [place] WBC #/vol (Bld) 10.3 10*3/uL Normal 3.6-10.7 [facility] Comment on above: Performed By: #### H EMDF, NH33, PT, CMP3, LIPA4, CK3, TROPN, LACT3, MDIFF, PCAL #### [address] [address] [place] Magnesiumon 12-06-2018 Magnesium mass conc 3.0 mg/dL High 1.6-2.3 [facility] Comment on above: Performed By: #### H EMDF, NH33, PT, CMP3, LIPA4, CK3, TROPN, LACT3, MDIFF, PCAL #### [place] [address] [place], [place] Magnesium mass conc 3.1 mg/dL High 1.6-2.3 [facility] Comment on above: Performed By: #### H EMDF, NH33, PT, CMP3, LIPA4, CK3, TROPN, LACT3, MDIFF, PCAL #### [address] [place] Magnesium mass conc 3.3 mg/dL High 1.6-2.3 [facility] Comment on above: Performed By: #### H EMDF, NH33, PT, CMP3, LIPA4, CK3, TROPN, LACT3, MDIFF, PCAL #### [address] Magnesium mass conc 3.4 mg/dL High 1.6-2.3 [facility] Comment on above: Performed By: #### H EMDF, NH33, PT, CMP3, LIPA4, CK3, TROPN, LACT3, MDIFF, PCAL #### [address] Phosphoruson 12-06-2018 Phosphate mass conc 4.0 mg/dL Normal 2.5-4.5 [facility] Comment on above: Performed By: #### H EMDF, NH33, PT, CMP3, LIPA4, CK3, TROPN, LACT3, MDIFF, PCAL #### [facility] [address], [place] Troponin Ion 12-06-2018 Troponin I.cardiac mass conc 0.240 ng/mL High 0.000-0.034 [facility] Comment on above: Result Comment: 0.04 6 - 0.400 = Indeterminate > 0.400 = Consider Myocardial Injury Performed By: #### H EMDF, NH33, PT, CMP3, LIPA4, CK3, TROPN, LACT3, MDIFF, PCAL #### [place] [address] [place], [place] Add on test from [facility] 12-05 Add on test from [facility] Accepted Normal [facility] Comment on above: Result Comment: Spec imen available & acceptable for analysis. Performed By: #### H EMDF, NH33, PT, CMP3, LIPA4, CK3, TROPN, LACT3, MDIFF, PCAL #### [place] [address] [place], [place] Basic Metabolic Panelon 11-23 Anion gap molar conc 11 Normal [facility] Comment on above: Performed By: #### H EMDF, NH33, PT, CMP3, LIPA4, CK3, TROPN, LACT3, MDIFF, PCAL #### [place] [address] [place], [place] CO2 molar conc 35 mmol/L High 22-30 [facility] Comment on above: Performed By: #### H EMDF, NH33, PT, CMP3, LIPA4, CK3, TROPN, LACT3, MDIFF, PCAL #### [place] [address] [place], [place] Calcium mass conc 8.8 mg/dL Normal 8.4-10.4 [facility] Comment on above: Performed By: #### H EMDF, NH33, PT, CMP3, LIPA4, CK3, TROPN, LACT3, MDIFF, PCAL #### [address] [place] [address] Glucose mass conc 124 mg/dL High 70-100 [facility] Comment on above: Performed By: #### H EMDF, NH33, PT, CMP3, LIPA4, CK3, TROPN, LACT3, MDIFF, PCAL #### [address] [place] [address] Urea nitrogen mass conc 89 mg/dL High 7-20 [facility] Comment on above: Performed By: #### H EMDF, NH33, PT, CMP3, LIPA4, CK3, TROPN, LACT3, MDIFF, PCAL #### [address] [address] Creatinine mass conc 5.11 mg/dL High 0.52-1.25 [facility] Comment on above: Performed By: #### H EMDF, NH33, PT, CMP3, LIPA4, CK3, TROPN, LACT3, MDIFF, PCAL #### [address] [place] [address] GFR/1.73 sq M predicted among blacks MDRD vol rate/area (S/P/Bld) 13.2 mL/min/{1.73_m2} Normal >60 [facility] Comment on above: Performed By: #### H EMDF, NH33, PT, CMP3, LIPA4, CK3, TROPN, LACT3, MDIFF, PCAL #### [place] [address] [place] [address] GFR/1.73 sq M predicted among non-blacks MDRD vol rate/area (S/P/Bld) 10.9 mL/min/{1.73_m2} Normal >60 [facility] Comment on above: Result Comment: Sour ce- MDRD equation with creatinine calibration to IDMS(NKDEP) eGFR not recommended for drug dose adjustment Performed By: #### H EMDF, NH33, PT, CMP3, LIPA4, CK3, TROPN, LACT3, MDIFF, PCAL #### [place] [address] [place], [place] Chloride molar conc 93 mmol/L Low 98-107 [facility] Comment on above: Performed By: #### H EMDF, NH33, PT, CMP3, LIPA4, CK3, TROPN, LACT3, MDIFF, PCAL #### [address] [place] [address] Potassium molar conc 3.7 mmol/L Normal 3.5-5.1 [facility] Comment on above: Performed By: #### H EMDF, NH33, PT, CMP3, LIPA4, CK3, TROPN, LACT3, MDIFF, PCAL #### [address] [place] [place] Sodium molar conc 137 mmol/L Normal 135-145 [facility] Comment on above: Performed By: #### H EMDF, NH33, PT, CMP3, LIPA4, CK3, TROPN, LACT3, MDIFF, PCAL #### [place] [address] [place] Calcium mass conc 5.4 mg/dL Critically low 8.4-10.4 [facility] Comment on above: Result Comment: Repe ated Performed By: #### H EMDF, NH33, PT, CMP3, LIPA4, CK3, TROPN, LACT3, MDIFF, PCAL #### [address] [place] Potassium molar conc 2.3 mmol/L Critically low 3.5-5.1 [facility] Comment on above: Result Comment: Repe ated Performed By: #### H EMDF, NH33, PT, CMP3, LIPA4, CK3, TROPN, LACT3, MDIFF, PCAL #### [address] Anion gap molar conc 7 Normal [facility] Comment on above: Performed By: #### H EMDF, NH33, PT, CMP3, LIPA4, CK3, TROPN, LACT3, MDIFF, PCAL #### [place] [address] [place], [place] CO2 molar conc 24 mmol/L Normal 22-30 [facility] Comment on above: Performed By: #### H EMDF, NH33, PT, CMP3, LIPA4, CK3, TROPN, LACT3, MDIFF, PCAL #### [place] [address] [place], [place] Glucose mass conc 116 mg/dL High 70-100 [facility] Comment on above: Performed By: #### H EMDF, NH33, PT, CMP3, LIPA4, CK3, TROPN, LACT3, MDIFF, PCAL #### [address] [place] [place] Urea nitrogen mass conc 63 mg/dL High 7-20 [facility] Comment on above: Performed By: #### H EMDF, NH33, PT, CMP3, LIPA4, CK3, TROPN, LACT3, MDIFF, PCAL #### [address] [place] Creatinine mass conc 3.44 mg/dL High 0.52-1.25 [facility] Comment on above: Performed By: #### H EMDF, NH33, PT, CMP3, LIPA4, CK3, TROPN, LACT3, MDIFF, PCAL #### [place] [address] [place], [place] GFR/1.73 sq M predicted among blacks MDRD vol rate/area (S/P/Bld) 20.9 mL/min/{1.73_m2} Normal >60 [facility] Comment on above: Performed By: #### H EMDF, NH33, PT, CMP3, LIPA4, CK3, TROPN, LACT3, MDIFF, PCAL #### [address] [place] GFR/1.73 sq M predicted among non-blacks MDRD vol rate/area (S/P/Bld) 17.2 mL/min/{1.73_m2} Normal >60 [facility] Comment on above: Result Comment: Sour ce- MDRD equation with creatinine calibration to IDMS(NKDEP) eGFR not recommended for drug dose adjustment Performed By: #### H EMDF, NH33, PT, CMP3, LIPA4, CK3, TROPN, LACT3, MDIFF, PCAL #### [place] [address] [place] Chloride molar conc 109 mmol/L High 98-107 [facility] Comment on above: Performed By: #### H EMDF, NH33, PT, CMP3, LIPA4, CK3, TROPN, LACT3, MDIFF, PCAL #### [place] [address] [place] Sodium molar conc 140 mmol/L Normal 135-145 [facility] Comment on above: Performed By: #### H EMDF, NH33, PT, CMP3, LIPA4, CK3, TROPN, LACT3, MDIFF, PCAL #### [place] [address] [place], [place] Anion gap molar conc 12 Normal [facility] Comment on above: Performed By: #### H EMDF, NH33, PT, CMP3, LIPA4, CK3, TROPN, LACT3, MDIFF, PCAL #### [place] [address] [place] Calcium mass conc 7.8 mg/dL Low 8.4-10.4 [facility] Comment on above: Performed By: #### H EMDF, NH33, PT, CMP3, LIPA4, CK3, TROPN, LACT3, MDIFF, PCAL #### [place] [address] [place] CO2 molar conc 32 mmol/L High 22-30 [facility] Comment on above: Performed By: #### H EMDF, NH33, PT, CMP3, LIPA4, CK3, TROPN, LACT3, MDIFF, PCAL #### [place] [address] [place] Glucose mass conc 133 mg/dL High 70-100 [facility] Comment on above: Performed By: #### H EMDF, NH33, PT, CMP3, LIPA4, CK3, TROPN, LACT3, MDIFF, PCAL #### [place] [address] [place], [place] Urea nitrogen mass conc 84 mg/dL High 7-20 [facility] Comment on above: Performed By: #### H EMDF, NH33, PT, CMP3, LIPA4, CK3, TROPN, LACT3, MDIFF, PCAL #### [place] [address] [place] Creatinine mass conc 5.23 mg/dL High 0.52-1.25 [facility] Comment on above: Performed By: #### H EMDF, NH33, PT, CMP3, LIPA4, CK3, TROPN, LACT3, MDIFF, PCAL #### [address] GFR/1.73 sq M predicted among blacks MDRD vol rate/area (S/P/Bld) 12.9 mL/min/{1.73_m2} Normal >60 [facility] Comment on above: Performed By: #### H EMDF, NH33, PT, CMP3, LIPA4, CK3, TROPN, LACT3, MDIFF, PCAL #### [address] [place] [place] GFR/1.73 sq M predicted among non-blacks MDRD vol rate/area (S/P/Bld) 10.6 mL/min/{1.73_m2} Normal >60 [facility] Comment on above: Result Comment: Sour ce- MDRD equation with creatinine calibration to IDMS(NKDEP) eGFR not recommended for drug dose adjustment Performed By: #### H EMDF, NH33, PT, CMP3, LIPA4, CK3, TROPN, LACT3, MDIFF, PCAL #### [address] Chloride molar conc 95 mmol/L Low 98-107 [facility] Comment on above: Performed By: #### H EMDF, NH33, PT, CMP3, LIPA4, CK3, TROPN, LACT3, MDIFF, PCAL #### [place] [address] Potassium molar conc 3.4 mmol/L Low 3.5-5.1 [facility] Comment on above: Performed By: #### H EMDF, NH33, PT, CMP3, LIPA4, CK3, TROPN, LACT3, MDIFF, PCAL #### [address] [address] [place] Sodium molar conc 139 mmol/L Normal 135-145 [facility] Comment on above: Performed By: #### H EMDF, NH33, PT, CMP3, LIPA4, CK3, TROPN, LACT3, MDIFF, PCAL #### [place] [address] [place] Calcium mass conc 8.1 mg/dL Low 8.4-10.4 [facility] Comment on above: Performed By: #### H EMDF, NH33, PT, CMP3, LIPA4, CK3, TROPN, LACT3, MDIFF, PCAL #### [address] Anion gap molar conc 18 Normal [facility] Comment on above: Performed By: #### H EMDF, NH33, PT, CMP3, LIPA4, CK3, TROPN, LACT3, MDIFF, PCAL #### [place] [address] [place] CO2 molar conc 30 mmol/L Normal 22-30 [facility] Comment on above: Performed By: #### H EMDF, NH33, PT, CMP3, LIPA4, CK3, TROPN, LACT3, MDIFF, PCAL #### [address] Creatinine mass conc 5.38 mg/dL High 0.52-1.25 [facility] Comment on above: Performed By: #### H EMDF, NH33, PT, CMP3, LIPA4, CK3, TROPN, LACT3, MDIFF, PCAL #### [address] [place] GFR/1.73 sq M predicted among blacks MDRD vol rate/area (S/P/Bld) 12.5 mL/min/{1.73_m2} Normal >60 [facility] Comment on above: Performed By: #### H EMDF, NH33, PT, CMP3, LIPA4, CK3, TROPN, LACT3, MDIFF, PCAL #### [address] [place] GFR/1.73 sq M predicted among non-blacks MDRD vol rate/area (S/P/Bld) 10.3 mL/min/{1.73_m2} Normal >60 [facility] Comment on above: Result Comment: Sour ce- MDRD equation with creatinine calibration to IDMS(NKDEP) eGFR not recommended for drug dose adjustment Performed By: #### H EMDF, NH33, PT, CMP3, LIPA4, CK3, TROPN, LACT3, MDIFF, PCAL #### [address] [address] [place] Glucose mass conc 148 mg/dL High 70-100 [facility] Comment on above: Performed By: #### H EMDF, NH33, PT, CMP3, LIPA4, CK3, TROPN, LACT3, MDIFF, PCAL #### [address] [address] [place] Urea nitrogen mass conc 78 mg/dL High 7-20 [facility] Comment on above: Performed By: #### H EMDF, NH33, PT, CMP3, LIPA4, CK3, TROPN, LACT3, MDIFF, PCAL #### [address] Potassium molar conc 3.5 mmol/L Normal 3.5-5.1 [facility] Comment on above: Performed By: #### H EMDF, NH33, PT, CMP3, LIPA4, CK3, TROPN, LACT3, MDIFF, PCAL #### [address] Sodium molar conc 139 mmol/L Normal 135-145 [facility] Comment on above: Performed By: #### H EMDF, NH33, PT, CMP3, LIPA4, CK3, TROPN, LACT3, MDIFF, PCAL #### [facility] [address] [place] [address] Chloride molar conc 91 mmol/L Low 98-107 [facility] Comment on above: Performed By: #### H EMDF, NH33, PT, CMP3, LIPA4, CK3, TROPN, LACT3, MDIFF, PCAL #### [facility] [address] [place] [address] CR Chest Portableon 12-05-19 19 CR Chest Portable Patient Name: ELIAS SHAH Diagnostic Radiology Exam Date/Time 12/05/2018 12:50:41 EST Exam CR Chest Portable Ordering Physician MD MANINDER, SIMON Wall Accession Number [id number] CPT4 Codes 56057 () Reason For Exam cvc placement Report [...] Transcribed Date and Time: 12/05/2018 2:02 Normal [facility] Calcium,Ionizedon 12-05-2018 Ionized Ca,Measured 4.00 mg/dL Low 4.30-5.20 [facility] Comment on above: Performed By: #### H EMDF, NH33, PT, CMP3, LIPA4, CK3, TROPN, LACT3, MDIFF, PCAL #### [place] [address] [address] [place], [place] pH, Ionized Calcium 7.39 Normal 7.31-7.46 [facility] Comment on above: Performed By: #### H EMDF, NH33, PT, CMP3, LIPA4, CK3, TROPN, LACT3, MDIFF, PCAL #### [address] Hemogram w/ Autodiffon 12-05 Abs Baso Cnt 0.1 10*3/uL Normal 0.0-0.2 [facility] Comment on above: Performed By: #### H EMDF, NH33, PT, CMP3, LIPA4, CK3, TROPN, LACT3, MDIFF, PCAL #### [address] Abs Neutrophile Cnt 10.4 10*3/uL High 1.8-7.0 [facility] Comment on above: Performed By: #### H EMDF, NH33, PT, CMP3, LIPA4, CK3, TROPN, LACT3, MDIFF, PCAL #### [address] Basophils/100 WBC (Bld) 0.5 % Normal 0.0-2.0 [facility] Comment on above: Performed By: #### H EMDF, NH33, PT, CMP3, LIPA4, CK3, TROPN, LACT3, MDIFF, PCAL #### [place] [address] [place] Eosinophils #/vol (Bld) 0.0 10*3/uL Normal 0.0-0.5 [facility] Comment on above: Performed By: #### H EMDF, NH33, PT, CMP3, LIPA4, CK3, TROPN, LACT3, MDIFF, PCAL #### [address] Eosinophils/100 WBC (Bld) 0.0 % Low 1.0-6.0 [facility] Comment on above: Performed By: #### H EMDF, NH33, PT, CMP3, LIPA4, CK3, TROPN, LACT3, MDIFF, PCAL #### [address] Erythrocyte distribution width Ratio (RBC) 15.7 % High 11.5-14.5 [facility] Comment on above: Performed By: #### H EMDF, NH33, PT, CMP3, LIPA4, CK3, TROPN, LACT3, MDIFF, PCAL #### [address] Granulocytes/100 WBC (Bld) 77.9 % Normal 40.0-80.0 [facility] Comment on above: Performed By: #### H EMDF, NH33, PT, CMP3, LIPA4, CK3, TROPN, LACT3, MDIFF, PCAL #### [address] Hematocrit Volume Fraction (Bld) 36.7 % Low 40.0-52.0 [facility] Comment on above: Performed By: #### H EMDF, NH33, PT, CMP3, LIPA4, CK3, TROPN, LACT3, MDIFF, PCAL #### [address] Hemoglobin mass conc (Bld) 11.9 g/dL Low 13.0-18.0 [facility] Comment on above: Performed By: #### H EMDF, NH33, PT, CMP3, LIPA4, CK3, TROPN, LACT3, MDIFF, PCAL #### [address] Lymphocytes #/vol (Bld) 0.9 10*3/uL Low 1.0-4.3 [facility] Comment on above: Performed By: #### H EMDF, NH33, PT, CMP3, LIPA4, CK3, TROPN, LACT3, MDIFF, PCAL #### [address] Lymphocytes/100 WBC (Bld) 6.6 % Low 20.0-40.0 [facility] Comment on above: Performed By: #### H EMDF, NH33, PT, CMP3, LIPA4, CK3, TROPN, LACT3, MDIFF, PCAL #### [address] MCH Entitic mass (RBC) 28.0 pg Normal 26.0-34.0 [facility] Comment on above: Performed By: #### H EMDF, NH33, PT, CMP3, LIPA4, CK3, TROPN, LACT3, MDIFF, PCAL #### [address] MCHC mass conc (RBC) 32.3 % Normal 32.0-36.0 [facility] Comment on above: Performed By: #### H EMDF, NH33, PT, CMP3, LIPA4, CK3, TROPN, LACT3, MDIFF, PCAL #### [address] MCV Entitic volume (RBC) 86.7 fL Normal 80.0-98.0 [facility] Comment on above: Performed By: #### H EMDF, NH33, PT, CMP3, LIPA4, CK3, TROPN, LACT3, MDIFF, PCAL #### [address] Monocytes #/vol (Bld) 2.0 10*3/uL High 0.0-0.8 [facility] Comment on above: Performed By: #### H EMDF, NH33, PT, CMP3, LIPA4, CK3, TROPN, LACT3, MDIFF, PCAL #### [address] Monocytes/100 WBC (Bld) 15.0 % High 2.0-10.0 [facility] Comment on above: Performed By: #### H EMDF, NH33, PT, CMP3, LIPA4, CK3, TROPN, LACT3, MDIFF, PCAL #### [address] Platelet mean volume Entitic volume (Bld) 9.1 fL Normal 7.4-10.4 [facility] Comment on above: Performed By: #### H EMDF, NH33, PT, CMP3, LIPA4, CK3, TROPN, LACT3, MDIFF, PCAL #### [address] Platelets #/vol (Bld) 218 10*3/uL Normal 140-440 [facility] Comment on above: Performed By: #### H EMDF, NH33, PT, CMP3, LIPA4, CK3, TROPN, LACT3, MDIFF, PCAL #### [address] RBC #/vol (Bld) 4.23 10*6/uL Low 4.40-5.90 [facility] Comment on above: Performed By: #### H EMDF, NH33, PT, CMP3, LIPA4, CK3, TROPN, LACT3, MDIFF, PCAL #### [address] WBC #/vol (Bld) 13.3 10*3/uL High 3.6-10.7 [facility] Comment on above: Performed By: #### H EMDF, NH33, PT, CMP3, LIPA4, CK3, TROPN, LACT3, MDIFF, PCAL #### [address] Lactic Acidon 12-05-2018 Lactate molar conc 1.0 mmol/L Normal 0.7-2.0 [facility] Comment on above: Performed By: #### H EMDF, NH33, PT, CMP3, LIPA4, CK3, TROPN, LACT3, MDIFF, PCAL #### [address] Lactate molar conc 1.1 mmol/L Normal 0.7-2.0 [facility] Comment on above: Performed By: #### H EMDF, NH33, PT, CMP3, LIPA4, CK3, TROPN, LACT3, MDIFF, PCAL #### [address] [address] [place] Lactate molar conc 1.5 mmol/L Normal 0.7-2.0 [facility] Comment on above: Performed By: #### H EMDF, NH33, PT, CMP3, LIPA4, CK3, TROPN, LACT3, MDIFF, PCAL #### [address] [address] [place] Lactate molar conc 1.6 mmol/L Normal 0.7-2.0 [facility] Comment on above: Performed By: #### H EMDF, NH33, PT, CMP3, LIPA4, CK3, TROPN, LACT3, MDIFF, PCAL #### [address] Magnesiumon 12-05-2018 Magnesium mass conc 1.6 mg/dL Normal 1.6-2.3 [facility] Comment on above: Performed By: #### H EMDF, NH33, PT, CMP3, LIPA4, CK3, TROPN, LACT3, MDIFF, PCAL #### [address] [address] [place] Magnesium mass conc 2.3 mg/dL Normal 1.6-2.3 [facility] Comment on above: Performed By: #### H EMDF, NH33, PT, CMP3, LIPA4, CK3, TROPN, LACT3, MDIFF, PCAL #### [address] [address] [place] Magnesium mass conc 2.5 mg/dL High 1.6-2.3 [facility] Comment on above: Performed By: #### H EMDF, NH33, PT, CMP3, LIPA4, CK3, TROPN, LACT3, MDIFF, PCAL #### [address] Microalbumin/Creat Ratioon 0 12-05-2018 Microalb/Creat Ratio 206.2 mg/g High 0.0-29.9 [facility] Comment on above: Performed By: #### H EMDF, NH33, PT, CMP3, LIPA4, CK3, TROPN, LACT3, MDIFF, PCAL #### [address] Microalbumin, Ur 375.0 mg/L High 0.0-17.0 [facility] Comment on above: Result Comment: Micr oalbumin concentrations <30 are considered normal, 30-300 are considered microalbuminuria (or risk of diabetic nephropathy), and >300 are considered clinical albuminuria (clinical nephropathy). Diabetes Care,27, Supplement 1, H81-33, 2003 Performed By: #### H EMDF, NH33, PT, CMP3, LIPA4, CK3, TROPN, LACT3, MDIFF, PCAL #### [place] [address] Creatinine, Ur Random 181.9 mg/dL Normal No Range [facility] Comment on above: Performed By: #### H EMDF, NH33, PT, CMP3, LIPA4, CK3, TROPN, LACT3, MDIFF, PCAL #### [address] Op Noteon 12-05-2018 Op Note PATIENT: ELIAS [...] ventral hernia with strangulated bowel. Anesthesia: General. Die Tripper: Dr. Van Tolliver. Complications: None. Blood Loss: Minimal. Details: The patient is an 78-year-old gentleman who presents to [facility] ER with abdominal pain, emesis, acute kidney [...] Made 2 enterotomies, we then performed a [id number] functional, end-to-end stapled anastomosis using 75 mm [...] the Intensive Care Unit in stable condition. [facility] Job ID: [id number] Felipe Gonzáles DO DOD:12/04/2018 10:08 P MAP/dsk DOT:12/05/2018 01:14 A Job Number: [id number] Document Number: [id number] cc: Stella Bosch II, MD [address] [place] [id number] Felipe Gonzáles DO [facility] [address] [place] [address] [address] [place] [id number] Normal [facility] Osmolality,Urineon 9 Osmolality,Urine 466 mosm/kg Normal 300-1000 [facility] Comment on above: Performed By: #### H EMDF, NH33, PT, CMP3, LIPA4, CK3, TROPN, LACT3, MDIFF, PCAL #### [address] [address] [address], [place] PTH, Intacton 12-05-2018 PTH, Intact 224.6 pg/mL High 15.0-63.0 [facility] Comment on above: Performed By: #### H EMDF, NH33, PT, CMP3, LIPA4, CK3, TROPN, LACT3, MDIFF, PCAL #### [address] [address] [place] Phosphoruson 12-05-2018 Phosphate mass conc 5.4 mg/dL High 2.5-4.5 [facility] Comment on above: Performed By: #### H EMDF, NH33, PT, CMP3, LIPA4, CK3, TROPN, LACT3, MDIFF, PCAL #### [address] [address] [place] Phosphate mass conc 5.7 mg/dL High 2.5-4.5 [facility] Comment on above: Performed By: #### H EMDF, NH33, PT, CMP3, LIPA4, CK3, TROPN, LACT3, MDIFF, PCAL #### [address] [address] [place], [place] Protein, Ur Randomon 019 Protein mass conc 34 mg/dL High No Range [facility] Comment on above: Performed By: #### H EMDF, NH33, PT, CMP3, LIPA4, CK3, TROPN, LACT3, MDIFF, PCAL #### [address] [address] [place] Renal Functionon 12-05-2018 Calcium mass conc 8.0 mg/dL Low 8.4-10.4 [facility] Comment on above: Performed By: #### H EMDF, NH33, PT, CMP3, LIPA4, CK3, TROPN, LACT3, MDIFF, PCAL #### [address] [address] [place] Glucose mass conc 117 mg/dL High 70-100 [facility] Comment on above: Performed By: #### H EMDF, NH33, PT, CMP3, LIPA4, CK3, TROPN, LACT3, MDIFF, PCAL #### [facility] [address] [place], [place] Phosphate mass conc 6.1 mg/dL High 2.5-4.5 [facility] Comment on above: Performed By: #### H EMDF, NH33, PT, CMP3, LIPA4, CK3, TROPN, LACT3, MDIFF, PCAL #### [address] [address] [place] Urea nitrogen mass conc 93 mg/dL High 7-20 [facility] Comment on above: Performed By: #### H EMDF, NH33, PT, CMP3, LIPA4, CK3, TROPN, LACT3, MDIFF, PCAL #### [address] [address] [place] Anion gap molar conc 10 Normal [facility] Comment on above: Performed By: #### H EMDF, NH33, PT, CMP3, LIPA4, CK3, TROPN, LACT3, MDIFF, PCAL #### [address] [address] [place] CO2 molar conc 34 mmol/L High 22-30 [facility] Comment on above: Performed By: #### H EMDF, NH33, PT, CMP3, LIPA4, CK3, TROPN, LACT3, MDIFF, PCAL #### [address] [address] [place] Creatinine mass conc 5.05 mg/dL High 0.52-1.25 [facility] Comment on above: Performed By: #### H EMDF, NH33, PT, CMP3, LIPA4, CK3, TROPN, LACT3, MDIFF, PCAL #### [address] [address] [address] GFR/1.73 sq M predicted among blacks MDRD vol rate/area (S/P/Bld) 13.4 mL/min/{1.73_m2} Normal >60 [facility] Comment on above: Performed By: #### H EMDF, NH33, PT, CMP3, LIPA4, CK3, TROPN, LACT3, MDIFF, PCAL #### [address] [address] GFR/1.73 sq M predicted among non-blacks MDRD vol rate/area (S/P/Bld) 11.1 mL/min/{1.73_m2} Normal >60 [facility] Comment on above: Result Comment: Sour ce- MDRD equation with creatinine calibration to IDMS(NKDEP) eGFR not recommended for drug dose adjustment Performed By: #### H EMDF, NH33, PT, CMP3, LIPA4, CK3, TROPN, LACT3, MDIFF, PCAL #### [address] [address] Potassium molar conc 3.9 mmol/L Normal 3.5-5.1 [facility] Comment on above: Performed By: #### H EMDF, NH33, PT, CMP3, LIPA4, CK3, TROPN, LACT3, MDIFF, PCAL #### [address] [address] Albumin mass conc 3.0 g/dL Low 3.5-5.0 [facility] Comment on above: Performed By: #### H EMDF, NH33, PT, CMP3, LIPA4, CK3, TROPN, LACT3, MDIFF, PCAL #### [address] [address] Chloride molar conc 93 mmol/L Low 98-107 [facility] Comment on above: Performed By: #### H EMDF, NH33, PT, CMP3, LIPA4, CK3, TROPN, LACT3, MDIFF, PCAL #### [address] [address] Sodium molar conc 137 mmol/L Normal 135-145 [facility] Comment on above: Performed By: #### H EMDF, NH33, PT, CMP3, LIPA4, CK3, TROPN, LACT3, MDIFF, PCAL #### [address] [address] Sodium, Ur Randomon 12-05-19 19 Sodium molar conc 34 mmol/L Normal No Range [facility] Comment on above: Performed By: #### H EMDF, NH33, PT, CMP3, LIPA4, CK3, TROPN, LACT3, MDIFF, PCAL #### [address] Thyroid Stim. Hormoneon 11-23 Thyroid Stim. Hormone 2.220 u[IU]/mL Normal 0.465-4.68 0 [facility] Comment on above: Performed By: #### H EMDF, NH33, PT, CMP3, LIPA4, CK3, TROPN, LACT3, MDIFF, PCAL #### [address] [address] Troponin Ion 12-05-2018 Troponin I.cardiac mass conc 0.467 ng/mL High 0.000-0.034 [facility] Comment on above: Result Comment: 0.04 6 - 0.400 = Indeterminate > 0.400 = Consider Myocardial Injury Performed By: #### H EMDF, NH33, PT, CMP3, LIPA4, CK3, TROPN, LACT3, MDIFF, PCAL #### [address] Troponin I.cardiac mass conc 0.716 ng/mL High 0.000-0.034 [facility] Comment on above: Result Comment: 0.04 6 - 0.400 = Indeterminate > 0.400 = Consider Myocardial Injury Performed By: #### H EMDF, NH33, PT, CMP3, LIPA4, CK3, TROPN, LACT3, MDIFF, PCAL #### [address] Troponin I.cardiac mass conc 0.952 ng/mL High 0.000-0.034 [facility] Comment on above: Result Comment: 0.04 6 - 0.400 = Indeterminate > 0.400 = Consider Myocardial Injury Performed By: #### H EMDF, NH33, PT, CMP3, LIPA4, CK3, TROPN, LACT3, MDIFF, PCAL #### [facility] [address] [place] [address] Urea Nitrogen,Ur Randomon Urea nitrogen mass conc 490 mg/dL Normal No Range [facility] Comment on above: Performed By: #### H EMDF, NH33, PT, CMP3, LIPA4, CK3, TROPN, LACT3, MDIFF, PCAL #### [facility] [address] [place], [place] Vit D 25-OH, Totalon 019 Vit D 25-OH, Total 18 ng/mL Low 30-100 [facility] Comment on above: Result Comment: Ther apy is based on measurement of Total 25-OHD with the following classification levels: Less than 20 ng/mL: Indicative of Vit D deficiency 20-30 ng/mL: Suggests Vit D insufficiency Optimal: Greater than or equal to 30 ng/mL Test performed by [employer] Immunoassay, measuring Total Vitamin D, not individual fractions. Performed By: #### H EMDF, NH33, PT, CMP3, LIPA4, CK3, TROPN, LACT3, MDIFF, PCAL #### [address] [address] [address], [place] Vitamin B12on 12-05-2018 Cobalamin (Vitamin B12) mass conc 260 pg/mL Normal 239-931 [facility] Comment on above: Performed By: #### H EMDF, NH33, PT, CMP3, LIPA4, CK3, TROPN, LACT3, MDIFF, PCAL #### [facility] [address] [place] [address] Ammoniaon 12-04-2018 Ammonia mass conc (P) 24 umol/L Normal 9-30 [facility] Comment on above: Performed By: #### H EMDF, NH33, PT, CMP3, LIPA4, CK3, TROPN, LACT3, MDIFF, PCAL #### [address] [place] [address] Arterial Blood Gaseson 12-04 CO2 molar conc 30.8 mmol/L High 23.0-27.0 [facility] Comment on above: Performed By: #### H EMDF, NH33, PT, CMP3, LIPA4, CK3, TROPN, LACT3, MDIFF, PCAL #### [address] HCO3 molar conc (Bld) 29.4 mmol/L High 21.0-25.0 [facility] Comment on above: Performed By: #### H EMDF, NH33, PT, CMP3, LIPA4, CK3, TROPN, LACT3, MDIFF, PCAL #### [address] Hemoglobin mass conc (Bld) 13.9 g/dL Normal ScreenOnly [facility] Comment on above: Performed By: #### H EMDF, NH33, PT, CMP3, LIPA4, CK3, TROPN, LACT3, MDIFF, PCAL #### [address] Oxygen ppres (Bld) 102.3 mm[Hg] High 80.0-100.0 [facility] Comment on above: Performed By: #### H EMDF, NH33, PT, CMP3, LIPA4, CK3, TROPN, LACT3, MDIFF, PCAL #### [address] Oxygen saturation in Blood 97.1 % Normal 95.0-100.0 [facility] Comment on above: Performed By: #### H EMDF, NH33, PT, CMP3, LIPA4, CK3, TROPN, LACT3, MDIFF, PCAL #### [address] pCO2 46.8 mm[Hg] High 35.0-45.0 [facility] Comment on above: Performed By: #### H EMDF, NH33, PT, CMP3, LIPA4, CK3, TROPN, LACT3, MDIFF, PCAL #### [address] pH (Bld) 7.416 Normal 7.350-7.450 [facility] Comment on above: Performed By: #### H EMDF, NH33, PT, CMP3, LIPA4, CK3, TROPN, LACT3, MDIFF, PCAL #### [address] Std Base Excess 4.1 mmol/L High -3.0-3.0 [facility] Comment on above: Performed By: #### H EMDF, NH33, PT, CMP3, LIPA4, CK3, TROPN, LACT3, MDIFF, PCAL #### [address] FIO2 No data Normal [facility] Comment on above: Performed By: #### H EMDF, NH33, PT, CMP3, LIPA4, CK3, TROPN, LACT3, MDIFF, PCAL #### [address] CO2 molar conc 31.5 mmol/L High 23.0-27.0 [facility] Comment on above: Performed By: #### H EMDF, NH33, PT, CMP3, LIPA4, CK3, TROPN, LACT3, MDIFF, PCAL #### [address] HCO3 molar conc (Bld) 30.3 mmol/L High 21.0-25.0 [facility] Comment on above: Performed By: #### H EMDF, NH33, PT, CMP3, LIPA4, CK3, TROPN, LACT3, MDIFF, PCAL #### [address] Hemoglobin mass conc (Bld) 13.1 g/dL Normal ScreenOnly [facility] Comment on above: Performed By: #### H EMDF, NH33, PT, CMP3, LIPA4, CK3, TROPN, LACT3, MDIFF, PCAL #### [address] Oxygen ppres (Bld) 430.1 mm[Hg] High 80.0-100.0 [facility] Comment on above: Performed By: #### H EMDF, NH33, PT, CMP3, LIPA4, CK3, TROPN, LACT3, MDIFF, PCAL #### [address] [place] Oxygen saturation in Blood 99.6 % Normal 95.0-100.0 [facility] Comment on above: Performed By: #### H EMDF, NH33, PT, CMP3, LIPA4, CK3, TROPN, LACT3, MDIFF, PCAL #### [address] [address] [place] pCO2 40.2 mm[Hg] Normal 35.0-45.0 [facility] Comment on above: Performed By: #### H EMDF, NH33, PT, CMP3, LIPA4, CK3, TROPN, LACT3, MDIFF, PCAL #### [address] [address] [place], [place] pH (Bld) 7.495 High 7.350-7.450 [facility] Comment on above: Performed By: #### H EMDF, NH33, PT, CMP3, LIPA4, CK3, TROPN, LACT3, MDIFF, PCAL #### [address] [address] [address] [place] Std Base Excess 6.5 mmol/L High -3.0-3.0 [facility] Comment on above: Performed By: #### H EMDF, NH33, PT, CMP3, LIPA4, CK3, TROPN, LACT3, MDIFF, PCAL #### [address] FIO2 100% Normal [facility] Comment on above: Performed By: #### H EMDF, NH33, PT, CMP3, LIPA4, CK3, TROPN, LACT3, MDIFF, PCAL #### [address] CKon 12-04-2018 CK enzyme act/vol 247 U/L High 30-170 [facility] Comment on above: Performed By: #### H EMDF, NH33, PT, CMP3, LIPA4, CK3, TROPN, LACT3, MDIFF, PCAL #### [facility] [address] [place] [address] CR Chest Portableon 12-04-19 19 CR Chest Portable Patient Name: ELIAS SHAH Diagnostic Radiology Exam Date/Time 12/04/2018 18:28:53 EST Exam CR Chest Portable Ordering Physician MD KAILYN, MISHA Acevedo Accession Number [id number] CPT4 Codes 22934 () Reason For Exam s/p NG tube [...] Transcribed Date and Time: 12/04/2018 6:38 Normal [facility] CR Chest Portable Patient Name: ELIAS SHAH Diagnostic Radiology Exam Date/Time 12/04/2018 17:25:31 EST Exam CR Chest Portable Ordering Physician KAY OMER MD, DONALD L Accession Number [id number] CPT4 Codes 36272 () Reason For Exam pt with altered [...] Transcribed Date and Time: 12/04/2018 5:33 Normal [facility] CT Abdomen/Pelvis w/o Contra ston 12-04-2018 CT Abdomen/Pelvis w/o Contrast Patient Name: ELIAS SHAH CT Exam Date/Time 12/04/2018 16:38:[address] Abdomen/Pelvis (No PO, No IV) Ordering Physician KAY OMER MD, STELLA Hodges Accession Number [id number] CPT4 Codes 53233 (CT Abdomen/Pelvis (No PO, No IV)) Reason [...] Transcribed Date and Time: 12/04/2018 4:58 Normal [facility] CT Head or Brain w/o Contras ton 12-04-2018 CT Head or Brain w/o Contrast Patient Name: ELIAS SHAH CT Exam Date/Time 12/04/2018 16:38:[address] Head or Brain w/o Contrast Ordering Physician KAY OMER MD, STELLA Hodges Accession Number [id number] CPT4 Codes 01464 () Reason For Exam pt with altered [...] Transcribed Date and Time: 12/04/2018 4:45 Normal [facility] Comp Metabolic Panelon 12-04 ALP enzyme act/vol 110 U/L Normal 38-126 [facility] Comment on above: Performed By: #### H EMDF, NH33, PT, CMP3, LIPA4, CK3, TROPN, LACT3, MDIFF, PCAL #### [facility] [address] [place], [place] ALT enzyme act/vol 19 U/L Normal 13-69 [facility] Comment on above: Performed By: #### H EMDF, NH33, PT, CMP3, LIPA4, CK3, TROPN, LACT3, MDIFF, PCAL #### [address] [address], [place] Anion gap molar conc 21 Normal [facility] Comment on above: Performed By: #### H EMDF, NH33, PT, CMP3, LIPA4, CK3, TROPN, LACT3, MDIFF, PCAL #### [address] [address] [address] [place] AST enzyme act/vol 40 U/L Normal 15-46 [facility] Comment on above: Performed By: #### H EMDF, NH33, PT, CMP3, LIPA4, CK3, TROPN, LACT3, MDIFF, PCAL #### [address] [address] [place] Calcium mass conc 10.2 mg/dL Normal 8.4-10.4 [facility] Comment on above: Performed By: #### H EMDF, NH33, PT, CMP3, LIPA4, CK3, TROPN, LACT3, MDIFF, PCAL #### [address] CO2 molar conc 31 mmol/L High 22-30 [facility] Comment on above: Performed By: #### H EMDF, NH33, PT, CMP3, LIPA4, CK3, TROPN, LACT3, MDIFF, PCAL #### [address] [place] Glucose mass conc 170 mg/dL High 70-100 [facility] Comment on above: Performed By: #### H EMDF, NH33, PT, CMP3, LIPA4, CK3, TROPN, LACT3, MDIFF, PCAL #### [address] [address] Protein mass conc 9.1 g/dL High 6.3-8.2 [facility] Comment on above: Performed By: #### H EMDF, NH33, PT, CMP3, LIPA4, CK3, TROPN, LACT3, MDIFF, PCAL #### [address] [address] [place] Urea nitrogen mass conc 73 mg/dL High 7-20 [facility] Comment on above: Performed By: #### H EMDF, NH33, PT, CMP3, LIPA4, CK3, TROPN, LACT3, MDIFF, PCAL #### [address] [place] Bilirubin mass conc 1.0 mg/dL Normal 0.2-1.3 [facility] Comment on above: Performed By: #### H EMDF, NH33, PT, CMP3, LIPA4, CK3, TROPN, LACT3, MDIFF, PCAL #### [address] [address] [place] Creatinine mass conc 5.53 mg/dL High 0.52-1.25 [facility] Comment on above: Performed By: #### H EMDF, NH33, PT, CMP3, LIPA4, CK3, TROPN, LACT3, MDIFF, PCAL #### [address] [address] [place], [place] GFR/1.73 sq M predicted among blacks MDRD vol rate/area (S/P/Bld) 12.1 mL/min/{1.73_m2} Normal >60 [facility] Comment on above: Performed By: #### H EMDF, NH33, PT, CMP3, LIPA4, CK3, TROPN, LACT3, MDIFF, PCAL #### [address] [address] [place] GFR/1.73 sq M predicted among non-blacks MDRD vol rate/area (S/P/Bld) 10.0 mL/min/{1.73_m2} Normal >60 [facility] Comment on above: Result Comment: Sour ce- MDRD equation with creatinine calibration to IDMS(NKDEP) eGFR not recommended for drug dose adjustment Performed By: #### H EMDF, NH33, PT, CMP3, LIPA4, CK3, TROPN, LACT3, MDIFF, PCAL #### [address] [address] [place] Albumin mass conc 4.8 g/dL Normal 3.5-5.0 [facility] Comment on above: Performed By: #### H EMDF, NH33, PT, CMP3, LIPA4, CK3, TROPN, LACT3, MDIFF, PCAL #### [address] [address] [place] Chloride molar conc 87 mmol/L Low 98-107 [facility] Comment on above: Performed By: #### H EMDF, NH33, PT, CMP3, LIPA4, CK3, TROPN, LACT3, MDIFF, PCAL #### [address] [address] [place] Potassium molar conc 3.4 mmol/L Low 3.5-5.1 [facility] Comment on above: Performed By: #### H EMDF, NH33, PT, CMP3, LIPA4, CK3, TROPN, LACT3, MDIFF, PCAL #### [address] Sodium molar conc 140 mmol/L Normal 135-145 [facility] Comment on above: Performed By: #### H EMDF, NH33, PT, CMP3, LIPA4, CK3, TROPN, LACT3, MDIFF, PCAL #### [email or web address] [address] [address] ED Provider Noteon 9 Protein mass conc Emergency Department Encounter [facility] Patient: Elias Shah : 1940 [...] 2 and is in a-fib with rvr AKIAK Elias Shah is a 78 y.o. male [...] eGFR 12.1 >60 mL/min EGFR IF NonAfrican [place] Islander 10.0 >60 mL/min Calcium 10.2 8.4 - [...] 0.8 (L) 1.1 - 4.5 10*3/uL Absolute [place] # 2.9 (H) 0.2 - 1.1 10*3/uL [...] KAY OMER MD, DONALD L Accession Number [id number] CPT4 Codes 76851 () Reason For Exam pt with altered [...] Physician MD AVINA MAZEN E Accession Number [id number] CPT4 Codes 14932 () Reason For Exam s/p NG tube [...] KAY OMER MD, DONALD L Accession Number [id number] CPT4 Codes 57830 () Reason For Exam pt with altered [...] KAY OMER MD, DONALD L Accession Number [id number] CPT4 Codes 39856 (CT Abdomen/Pelvis (No PO, No IV)) Reason [...] Last MAR action: New Bag - by CRAIG CLAYTON on 12/04/18 at 1746 STELLA BOSCH [...] DISPOSITION Decision To Admit 12/04/2018 03:03:44 PM [facility] (Please note that portions of this note may have been completed with a voice recognition program. Efforts were made to edit the dictations but occasionally words are mis-transcribed.) Stella Bosch MD [employer] Stella Bosch MD 12/04/18 1900 Normal [facility] Hemogramon 12-04-2018 Erythrocyte distribution width Ratio (RBC) 15.5 % High 11.5-14.5 [facility] Comment on above: Performed By: #### H EMDF, NH33, PT, CMP3, LIPA4, CK3, TROPN, LACT3, MDIFF, PCAL #### [address] Hematocrit Volume Fraction (Bld) 40.0 % Normal 40.0-52.0 [facility] Comment on above: Performed By: #### H EMDF, NH33, PT, CMP3, LIPA4, CK3, TROPN, LACT3, MDIFF, PCAL #### [address] Hemoglobin mass conc (Bld) 13.2 g/dL Normal 13.0-18.0 [facility] Comment on above: Result Comment: repe ated Performed By: #### H EMDF, NH33, PT, CMP3, LIPA4, CK3, TROPN, LACT3, MDIFF, PCAL #### [address] MCH Entitic mass (RBC) 28.3 pg Normal 26.0-34.0 [facility] Comment on above: Performed By: #### H EMDF, NH33, PT, CMP3, LIPA4, CK3, TROPN, LACT3, MDIFF, PCAL #### [address] MCHC mass conc (RBC) 33.1 % Normal 32.0-36.0 [facility] Comment on above: Performed By: #### H EMDF, NH33, PT, CMP3, LIPA4, CK3, TROPN, LACT3, MDIFF, PCAL #### [address] MCV Entitic volume (RBC) 85.6 fL Normal 80.0-98.0 [facility] Comment on above: Performed By: #### H EMDF, NH33, PT, CMP3, LIPA4, CK3, TROPN, LACT3, MDIFF, PCAL #### [address] Platelet mean volume Entitic volume (Bld) 8.8 fL Normal 7.4-10.4 [facility] Comment on above: Performed By: #### H EMDF, NH33, PT, CMP3, LIPA4, CK3, TROPN, LACT3, MDIFF, PCAL #### [address] Platelets #/vol (Bld) 236 10*3/uL Normal 140-440 [facility] Comment on above: Performed By: #### H EMDF, NH33, PT, CMP3, LIPA4, CK3, TROPN, LACT3, MDIFF, PCAL #### [address] RBC #/vol (Bld) 4.67 10*6/uL Normal 4.40-5.90 [facility] Comment on above: Performed By: #### H EMDF, NH33, PT, CMP3, LIPA4, CK3, TROPN, LACT3, MDIFF, PCAL #### [address] WBC #/vol (Bld) 13.6 10*3/uL High 3.6-10.7 [facility] Comment on above: Performed By: #### H EMDF, NH33, PT, CMP3, LIPA4, CK3, TROPN, LACT3, MDIFF, PCAL #### [address] Hemogram w/ Autodiffon 12-04 Erythrocyte distribution width Ratio (RBC) 15.2 % High 11.5-14.5 [facility] Comment on above: Performed By: #### H EMDF, NH33, PT, CMP3, LIPA4, CK3, TROPN, LACT3, MDIFF, PCAL #### [address] Hematocrit Volume Fraction (Bld) 48.2 % Normal 40.0-52.0 [facility] Comment on above: Performed By: #### H EMDF, NH33, PT, CMP3, LIPA4, CK3, TROPN, LACT3, MDIFF, PCAL #### [address] Hemoglobin mass conc (Bld) 15.7 g/dL Normal 13.0-18.0 [facility] Comment on above: Performed By: #### H EMDF, NH33, PT, CMP3, LIPA4, CK3, TROPN, LACT3, MDIFF, PCAL #### [address] MCH Entitic mass (RBC) 28.2 pg Normal 26.0-34.0 [facility] Comment on above: Performed By: #### H EMDF, NH33, PT, CMP3, LIPA4, CK3, TROPN, LACT3, MDIFF, PCAL #### [address] MCHC mass conc (RBC) 32.6 % Normal 32.0-36.0 [facility] Comment on above: Performed By: #### H EMDF, NH33, PT, CMP3, LIPA4, CK3, TROPN, LACT3, MDIFF, PCAL #### [address] MCV Entitic volume (RBC) 86.6 fL Normal 80.0-98.0 [facility] Comment on above: Performed By: #### H EMDF, NH33, PT, CMP3, LIPA4, CK3, TROPN, LACT3, MDIFF, PCAL #### [address] Platelet mean volume Entitic volume (Bld) 9.3 fL Normal 7.4-10.4 [facility] Comment on above: Performed By: #### H EMDF, NH33, PT, CMP3, LIPA4, CK3, TROPN, LACT3, MDIFF, PCAL #### [address] Platelets #/vol (Bld) 320 10*3/uL Normal 140-440 [facility] Comment on above: Performed By: #### H EMDF, NH33, PT, CMP3, LIPA4, CK3, TROPN, LACT3, MDIFF, PCAL #### [place] [address] [address] [place] RBC #/vol (Bld) 5.57 10*6/uL Normal 4.40-5.90 [facility] Comment on above: Performed By: #### H EMDF, NH33, PT, CMP3, LIPA4, CK3, TROPN, LACT3, MDIFF, PCAL #### [address] [address] [place] WBC #/vol (Bld) 15.2 10*3/uL High 3.6-10.7 [facility] Comment on above: Performed By: #### H EMDF, NH33, PT, CMP3, LIPA4, CK3, TROPN, LACT3, MDIFF, PCAL #### [address] Lactic Acidon 12-04-2018 Lactate molar conc 1.6 mmol/L Normal 0.7-2.0 [facility] Comment on above: Performed By: #### H EMDF, NH33, PT, CMP3, LIPA4, CK3, TROPN, LACT3, MDIFF, PCAL #### [address] Lactate molar conc 3.5 mmol/L Critically high 0.7-2.0 [facility] Comment on above: Result Comment: Repe ated Performed By: #### H EMDF, NH33, PT, CMP3, LIPA4, CK3, TROPN, LACT3, MDIFF, PCAL #### [address] [address] [place] Lipaseon 12-04-2018 Lipase enzyme act/vol 257 U/L Normal 23-300 [facility] Comment on above: Performed By: #### H EMDF, NH33, PT, CMP3, LIPA4, CK3, TROPN, LACT3, MDIFF, PCAL #### [address] Manual Diffon 12-04-2018 Abs Neutrophile Cnt 11.6 10*3/uL High 2.2-8.2 [facility] Comment on above: Performed By: #### H EMDF, NH33, PT, CMP3, LIPA4, CK3, TROPN, LACT3, MDIFF, PCAL #### [address] [address] [place] Anisocytosis Ql (Bld) Slight Normal [facility] Comment on above: Performed By: #### H EMDF, NH33, PT, CMP3, LIPA4, CK3, TROPN, LACT3, MDIFF, PCAL #### [address] [address] [place] Lymphocytes #/vol (Bld) 0.8 10*3/uL Low 1.1-4.5 [facility] Comment on above: Performed By: #### H EMDF, NH33, PT, CMP3, LIPA4, CK3, TROPN, LACT3, MDIFF, PCAL #### [address] [address] [place] Lymphocytes/100 WBC (Bld) 5 % Low 20-40 [facility] Comment on above: Performed By: #### H EMDF, NH33, PT, CMP3, LIPA4, CK3, TROPN, LACT3, MDIFF, PCAL #### [address] Monocytes #/vol (Bld) 2.9 10*3/uL High 0.2-1.1 [facility] Comment on above: Performed By: #### H EMDF, NH33, PT, CMP3, LIPA4, CK3, TROPN, LACT3, MDIFF, PCAL #### [address] [address] [place] Monocytes/100 WBC (Bld) 19 % High 2-10 [facility] Comment on above: Performed By: #### H EMDF, NH33, PT, CMP3, LIPA4, CK3, TROPN, LACT3, MDIFF, PCAL #### [address] [address] [place] RBC morphology finding Nom (Bld) Normal Normal [facility] Comment on above: Performed By: #### H EMDF, NH33, PT, CMP3, LIPA4, CK3, TROPN, LACT3, MDIFF, PCAL #### [address] Seg Neutrophils 76 % Normal 40-80 [facility] Comment on above: Performed By: #### H EMDF, NH33, PT, CMP3, LIPA4, CK3, TROPN, LACT3, MDIFF, PCAL #### [address] Abs Baso Cnt 0.0 10*3/uL Normal 0.0-0.2 [facility] Comment on above: Performed By: #### H EMDF, NH33, PT, CMP3, LIPA4, CK3, TROPN, LACT3, MDIFF, PCAL #### [address] Bands 0 % Normal 0-3 [facility] Comment on above: Performed By: #### H EMDF, NH33, PT, CMP3, LIPA4, CK3, TROPN, LACT3, MDIFF, PCAL #### [address] Basophils/100 WBC (Bld) 0 % Normal 0-2 [facility] Comment on above: Performed By: #### H EMDF, NH33, PT, CMP3, LIPA4, CK3, TROPN, LACT3, MDIFF, PCAL #### [address] Cells counted 100 Normal [facility] Comment on above: Performed By: #### H EMDF, NH33, PT, CMP3, LIPA4, CK3, TROPN, LACT3, MDIFF, PCAL #### [address] Eosinophils #/vol (Bld) 0.0 10*3/uL Normal 0.0-0.5 [facility] Comment on above: Performed By: #### H EMDF, NH33, PT, CMP3, LIPA4, CK3, TROPN, LACT3, MDIFF, PCAL #### [address] Eosinophils/100 WBC (Bld) 0 % Low 1-6 [facility] Comment on above: Performed By: #### H EMDF, NH33, PT, CMP3, LIPA4, CK3, TROPN, LACT3, MDIFF, PCAL #### [address] Procalcitoninon 12-04-2018 Protein mass conc 0.79 ng/mL Abnormal <0.10 [facility] Comment on above: Performed By: #### H EMDF, NH33, PT, CMP3, LIPA4, CK3, TROPN, LACT3, MDIFF, PCAL #### [address] Interpretation See Below Normal [facility] Comment on above: Result Comment: PCT <0.50 = Low risk of severe sepsis and/or septic shock. PCT >2.00 = High risk of severe sepsis and/or septic shock. Performed By: #### H EMDF, NH33, PT, CMP3, LIPA4, CK3, TROPN, LACT3, MDIFF, PCAL #### [address] Prothrombin Timeon 9 INR Coag RelTime (PPP) 1.2 High 0.9-1.1 [facility] Comment on above: Result Comment: Gonzalo [...] LIPA4, CK3, TROPN, LACT3, MDIFF, PCAL #### [address] [place] [address] Prothrombin time (PT) Coag time (PPP) 11.9 s Normal 9.0-12.0 [facility] Comment on above: Result Comment: . Performed By: #### H EMDF, NH33, PT, CMP3, LIPA4, CK3, TROPN, LACT3, MDIFF, PCAL #### [facility] [address] [place] [address] Surgical Pathologyon 019 Surgical Pathology [id number] [facility] 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 MARGINS: UNREMARKABLE. PORTIONS OF FIBROADIPOSE, CONSISTENT WITH HERNIA SAC. NEGATIVE FOR MALIGNANCY. NC/JAF Signature> RANDAL GAN M.D. CLINICAL INFORMATION: Not [...] Upon transection, the cut surfaces are bulging yellow-snigletary. No areas of hemorrhage or friability are identified. Multiple parts sales representative sections of the specimen are [...] characteristics determined by the clinical laboratories of [facility] [employer] [facility]. They have not been cleared by [...] negativity on decalcified specimens. Professional Performing Location: [facility] [address] [place] [address]. DEPARTMENT OF PATHOLOGY AND LABORATORY MEDICINE [place], [place] [address] Normal [facility] TS GELon 12-04-2018 TS GEL ABO Group: O Rh, Gel: POS Antibody Screen Gel: NEG Normal [facility] Comment on above: Performed By: #### H EMDF, NH33, PT, CMP3, LIPA4, CK3, TROPN, LACT3, MDIFF, PCAL #### [facility] [address] [place] [address] Troponin Ion 12-04-2018 Troponin I.cardiac mass conc 0.947 ng/mL High 0.000-0.034 [facility] Comment on above: Result Comment: 0.04 6 - 0.400 = Indeterminate > 0.400 = Consider Myocardial Injury Performed By: #### H EMDF, NH33, PT, CMP3, LIPA4, CK3, TROPN, LACT3, MDIFF, PCAL #### [facility] [address] [place] [address] No Panel Information Influenza Types A,B Direct FA (RYLAN) [facility] Work Phone: RSV Ag EIA RSV Ag Immune stain Ql (Tiss) [facility] Work Phone: Vital Signs Date Time Vital Sign Value Performing Clinician Faci lity 08-24-2025 11:42-0400 Body temperature 96.3 [degF] Dr. Geoffrey Garza MD Work Phone: [facility] 08-24-2025 11:42-0400 Diastolic blood pressure 69 mm[Hg] Dr. Geoffrey Garza MD Work Phone: [facility] 08-24-2025 11:42-0400 Heart rate 87 /min Dr. Geoffrey Garza MD Work Phone: [facility] 08-24-2025 11:42-0400 Respiratory rate 14 /min Dr. Geoffrey Garza MD Work Phone: [facility] 08-24-2025 11:42-0400 SaO2% (BldA) [Mass fraction] 98 % Dr. Geoffrey Garza MD Work Phone: 3(175)794-105553 [place] [address] 08-24-2025 11:42-0400 Systolic blood pressure 128 mm[Hg] Dr. Geoffrey Garza MD Work Phone: 8(239)810-800653 [place] [address] 08-24-2025 09:50-0400 Body height 175.[address] Geoffrey Garza MD Work Phone: 3(881)354-011753 [place] [address] 08-24-2025 09:50-0400 Body mass index (BMI) [Ratio] 27 kg/m2 Dr. Geoffrey Garza MD Work Phone: 7(597)168-820653 [place] [address] 08-24-2025 09:50-0400 Body weight [address] Geoffrey Garza MD Work Phone: 4(689)160-966853 [place] [address] 08-24-2025 08:50-0400 Body temperature 97.3 [degF] Dr. Geoffrey Garza MD Work Phone: 4(074)636-489653 [place] [address] 08-24-2025 08:50-0400 Body weight 90.[address] Geoffrey Garza MD Work Phone: 0(240)465-757753 [place] [address] 08-24-2025 08:50-0400 Diastolic blood pressure 64 mm[Hg] Dr. Geoffrey Garza MD Work Phone: 1(285)079-393953 [place] [address] 08-24-2025 08:50-0400 Heart rate 98 /min Dr. Geoffrey Garza MD Work Phone: 1(157)290-971253 [place] [address] 08-24-2025 08:50-0400 Respiratory rate 14 /min Dr. Geoffrey Garza MD Work Phone: 5(255)713-860553 [place] [address] 08-24-2025 08:50-0400 SaO2% (BldA) [Mass fraction] 97 % Dr. Geoffrey Garza MD Work Phone: 2(292)871-157053 [place] [address] 08-24-2025 08:50-0400 Systolic blood pressure 111 mm[Hg] Dr. Geoffrey Garza MD Work Phone: [facility] 08-08-2025 14:06-0400 Body temperature 98 [degF] Dr. Geoffrey Garza MD Work Phone: [facility] 08-08-2025 14:06-0400 Diastolic blood pressure 65 mm[Hg] Dr. Geoffrey Garza MD Work Phone: [facility] 08-08-2025 14:06-0400 Heart rate 84 /min Dr. Geoffrey Garza MD Work Phone: [facility] 08-08-2025 14:06-0400 Respiratory rate 16 /min Dr. Geoffrey Garza MD Work Phone: [facility] 08-08-2025 14:06-0400 SaO2% (BldA) [Mass fraction] 100 % Dr. Geoffrey Garza MD Work Phone: [facility] 08-08-2025 14:06-0400 Systolic blood pressure 137 mm[Hg] Dr. Geoffrey Garza MD Work Phone: [facility] 08-07-2025 11:20-0400 Body height 175.[address] Geoffrey Garza MD Work Phone: [facility] 08-07-2025 11:20-0400 Body weight 91.[address] Geoffrey Garza MD Work Phone: [facility] 08-07-2025 08:08-0400 Body temperature 97.3 [degF] Dr. Geoffrey Garza MD Work Phone: [facility] 08-07-2025 08:08-0400 Diastolic blood pressure 92 mm[Hg] Dr. Geoffrey Garza MD Work Phone: [facility] 08-07-2025 08:08-0400 Heart rate 111 /min Dr. Geoffrey Garza MD Work Phone: [facility] 08-07-2025 08:08-0400 Respiratory rate 17 /min Dr. Geoffrey Garza MD Work Phone: [facility] 08-07-2025 08:08-0400 SaO2% (BldA) [Mass fraction] 98 % Dr. Geoffrey Garza MD Work Phone: [facility] 08-07-2025 08:08-0400 Systolic blood pressure 135 mm[Hg] Dr. Geoffrey Garza MD Work Phone: [facility] 08-04-2025 17:53-0400 Body height 175.[address] Geoffrey Garza MD Work Phone: 5(334)237-717953 [place] [address] 08-04-2025 17:53-0400 Body mass index (BMI) [Ratio] 29.7 kg/m2 Dr. Geoffrey Garza MD Work Phone: 8(543)150-552969 [address] 08-04-2025 17:53-0400 Body weight 91.[address] Geoffrey Garza MD Work Phone: 7(347)688-926594 [place] [address] 08-04-2025 16:43-0400 Body temperature 97.9 [degF] Dr. Geoffrey Garza MD Work Phone: [facility] 08-04-2025 16:43-0400 Diastolic blood pressure 71 mm[Hg] Dr. Geoffrey Garza MD Work Phone: [facility] 08-04-2025 16:43-0400 Heart rate 89 /min Dr. Geoffrey Garza MD Work Phone: [facility] 08-04-2025 16:43-0400 Respiratory rate 18 /min Dr. Geoffrey Garza MD Work Phone: [facility] 08-04-2025 16:43-0400 SaO2% (BldA) [Mass fraction] 97 % Dr. Geoffrey Garza MD Work Phone: [facility] 08-04-2025 16:43-0400 Systolic blood pressure 125 mm[Hg] Dr. Geoffrey Garza MD Work Phone: [facility] 08-04-2025 14:29-0400 Diastolic blood pressure 64 mm[Hg] Dr. Geoffrey Garza MD Work Phone: [facility] 08-04-2025 14:29-0400 Heart rate 92 /min Dr. Geoffrey Garza MD Work Phone: [facility] 08-04-2025 14:29-0400 Respiratory rate 19 /min Dr. Geoffrey Garza MD Work Phone: [facility] 08-04-2025 14:29-0400 SaO2% (BldA) [Mass fraction] 96 % Dr. Geoffrey Garza MD Work Phone: [facility] 08-04-2025 14:29-0400 Systolic blood pressure 115 mm[Hg] Dr. Geoffrey Garza MD Work Phone: [facility] 08-04-2025 11:43-0400 Body height 175.[address] Geoffrey Garza MD Work Phone: [facility] 08-04-2025 11:43-0400 Body mass index (BMI) [Ratio] 29.7 kg/m2 Dr. Geoffrey Garza MD Work Phone: [facility] 08-04-2025 11:43-0400 Body temperature 98.5 [degF] Dr. Geoffrey Garza MD Work Phone: [facility] 08-04-2025 11:43-0400 Body weight 91.[address] Geoffrey Garza MD Work Phone: [facility] 08-02-2025 07:05-0400 Body height 175.[address] Geoffrey Garza MD Work Phone: [facility] 08-02-2025 07:05-0400 Body weight 94.[address] Geoffrey Garza MD Work Phone: [facility] 08-01-2025 15:02-0400 Body temperature 99.3 [degF] Dr. Geoffrey Garza MD Work Phone: [facility] 08-01-2025 15:02-0400 Body weight 92.[address] Geoffrey Garza MD Work Phone: [facility] 08-01-2025 15:02-0400 Diastolic blood pressure 55 mm[Hg] Dr. Geoffrey Garza MD Work Phone: [facility] 08-01-2025 15:02-0400 Heart rate 69 /min Dr. Geoffrey Garza MD Work Phone: [facility] 08-01-2025 15:02-0400 Respiratory rate 14 /min Dr. Geoffrey Garza MD Work Phone: [facility] 08-01-2025 15:02-0400 SaO2% (BldA) [Mass fraction] 96 % Dr. Geoffrey Garza MD Work Phone: [facility] 08-01-2025 15:02-0400 Systolic blood pressure 124 mm[Hg] Dr. Geoffrey Garza MD Work Phone: [facility] 08-01-2025 08:29-0400 Body mass index (BMI) [Ratio] 30.8 kg/m2 Dr. Geoffrey Garza MD Work Phone: [facility] 07-27-2025 20:22-0400 Body temperature 98.8 [degF] Dr. Geoffrey Garza MD Work Phone: [facility] 07-27-2025 20:22-0400 Diastolic blood pressure 75 mm[Hg] Dr. Geoffrey Garza MD Work Phone: [facility] 07-27-2025 20:22-0400 Heart rate 73 /min Dr. Geoffrey Garza MD Work Phone: [facility] 07-27-2025 20:22-0400 Respiratory rate 21 /min Dr. Geoffrey Garza MD Work Phone: [facility] 07-27-2025 20:22-0400 SaO2% (BldA) [Mass fraction] 95 % Dr. Geoffrey Garza MD Work Phone: [facility] 07-27-2025 20:22-0400 Systolic blood pressure 163 mm[Hg] Dr. Geoffrey Garza MD Work Phone: [facility] 07-27-2025 14:22-0400 Body height 175.[address] Geoffrey Garza MD Work Phone: [facility] 07-27-2025 14:22-0400 Body mass index (BMI) [Ratio] 26.9 kg/m2 Dr. Geoffrey Garza MD Work Phone: [facility] 07-27-2025 14:22-0400 Body weight 82.[address] Geoffrey Garza MD Work Phone: [facility] 06-22-2025 10:01-0400 Body height 175.[address] Geoffrey Garza MD Work Phone: [facility] 06-22-2025 10:01-0400 Body mass index (BMI) [Ratio] 29.9 kg/m2 Dr. Geoffrey Garza MD Work Phone: [facility] 06-22-2025 10:01-0400 Body weight 92.[address] Geoffrey Garza MD Work Phone: [facility] 06-22-2025 10:01-0400 Diastolic blood pressure 76 mm[Hg] Dr. Geoffrey Garza MD Work Phone: [facility] 06-22-2025 10:01-0400 Heart rate 65 /min Dr. Geoffrey Garza MD Work Phone: [facility] 06-22-2025 10:01-0400 Respiratory rate 18 /min Dr. Geoffrey Garza MD Work Phone: [facility] 06-22-2025 10:01-0400 Systolic blood pressure 119 mm[Hg] Dr. Geoffrey Garza MD Work Phone: [facility] 05-22-2025 10:44-0400 Body height 175.[address] Geoffrey Gazra MD Work Phone: 0(053)183-967694 [place] [address] 05-22-2025 10:44-0400 Body mass index (BMI) [Ratio] 29.6 kg/m2 Dr. Geoffrey Garza MD Work Phone: 3(507)677-575653 [place] [address] 05-22-2025 10:44-0400 Body temperature 98.2 [degF] Dr. Geoffrey Garza MD Work Phone: 5(982)124-761353 [place] [address] 05-22-2025 10:44-0400 Body weight 90.[address] Geoffrey Garza MD Work Phone: 9(615)160-927853 [place] [address] 05-22-2025 10:44-0400 Diastolic blood pressure 65 mm[Hg] Dr. Geoffrey Garza MD Work Phone: 5(286)537-401394 [place] [address] 05-22-2025 10:44-0400 Heart rate 59 /min Dr. Geoffrey Garza MD Work Phone: 5(143)525-114053 [place] [address] 05-22-2025 10:44-0400 Respiratory rate 16 /min Dr. Geoffrey Garza MD Work Phone: 8(724)940-443953 [place] [address] 05-22-2025 10:44-0400 SaO2% (BldA) [Mass fraction] 95 % Dr. Geoffrey Garza MD Work Phone: 5(068)882-696094 [place] [address] 05-22-2025 10:44-0400 Systolic blood pressure 160 mm[Hg] Dr. Geoffrey Garza MD Work Phone: 6(099)818-768094 [place] [address] 07-13-2023 14:42-0400 Body height 175.26 cm MD Husam Khan [facility] 07-13-2023 14:42-0400 Body mass index (BMI) [Ratio] 29.5 kg/m2 MD Husam Khan [facility] 07-13-2023 14:42-0400 Body temperature 97.5 [degF] MD Husam BACON [facility] 07-13-2023 14:42-0400 Body weight 90.71 kg [facility] 07-13-2023 14:42-0400 Diastolic blood pressure 75 mm[Hg] [facility] 07-13-2023 14:42-0400 Heart rate 82 /min [facility] 07-13-2023 14:42-0400 Respiratory rate 16 /min [facility] 07-13-2023 14:42-0400 SaO2% (BldA) [Mass fraction] 97 % [facility] 07-13-2023 14:42-0400 Systolic blood pressure 154 mm[Hg] [facility] 03-18-2023 14:00-0400 Body mass index (BMI) [Ratio] 29.2 kg/m2 [facility] 03-18-2023 14:00-0400 Body weight 89.89 kg [facility] 03-18-2023 14:00-0400 Diastolic blood pressure 73 mm[Hg] [facility] 03-18-2023 14:00-0400 Heart rate 60 /min [facility] 03-18-2023 14:00-0400 Respiratory rate 18 /min [facility] 03-18-2023 14:00-0400 Systolic blood pressure 156 mm[Hg] [facility] 09-23-2022 10:21-0400 Body height 175.26 cm [facility] Work Phone: 09-23-2022 10:21-0400 Body mass index (BMI) [Ratio] 29.5 kg/m2 [facility] Work Phone: 09-23-2022 10:21-0400 Body weight 90.71 kg [facility] Work Phone: 09-23-2022 10:21-0400 Diastolic blood pressure 6 mm[Hg] [facility] Work Phone: 09-23-2022 10:21-0400 Heart rate 59 /min [facility] Work Phone: 09-23-2022 10:21-0400 Respiratory rate 18 /min [facility] Work Phone: 09-23-2022 10:21-0400 SaO2% (BldA) [Mass fraction] 96 % [facility] Work Phone: 09-23-2022 10:21-0400 Systolic blood pressure 137 mm[Hg] [facility] Work Phone: 07-14-2022 14:28-0400 Body height 175.26 cm [facility] Work Phone: 07-14-2022 14:22-0400 Body mass index (BMI) [Ratio] 29.3 kg/m2 [facility] Work Phone: 07-14-2022 14:22-0400 Body temperature 98.6 [degF] [facility] Work Phone: 07-14-2022 14:22-0400 Body weight 90.26 kg [facility] Work Phone: 07-14-2022 14:22-0400 Diastolic blood pressure 65 mm[Hg] [facility] Work Phone: 07-14-2022 14:22-0400 Heart rate 62 /min [facility] Work Phone: 07-14-2022 14:22-0400 Respiratory rate 15 /min [facility] Work Phone: 07-14-2022 14:22-0400 SaO2% (BldA) [Mass fraction] 94 % [facility] Work Phone: 07-14-2022 14:22-0400 Systolic blood pressure 162 mm[Hg] [facility] Work Phone: 01-14-2022 11:57-0500 Body height 175.26 cm [facility] Work Phone: 01-14-2022 11:57-0500 Body weight 93.89 kg [facility] Work Phone: 01-14-2022 11:57-0500 Diastolic blood pressure 67 mm[Hg] [facility] Work Phone: 01-14-2022 11:57-0500 Heart rate 55 /min [facility] Work Phone: 01-14-2022 11:57-0500 Respiratory rate 18 /min [facility] Work Phone: 01-14-2022 11:57-0500 SaO2% (BldA) [Mass fraction] 96 % [facility] Work Phone: 01-14-2022 11:57-0500 Systolic blood pressure 172 mm[Hg] [facility] Work Phone: 01-13-2022 14:12-0500 Body mass index (BMI) [Ratio] 30.6 kg/m2 [facility] Work Phone: 01-13-2022 14:12-0500 Body temperature 98.2 [degF] [facility] Work Phone: 01-13-2022 14:12-0500 Body weight 94 kg [facility] Work Phone: 01-13-2022 14:12-0500 Diastolic blood pressure 78 mm[Hg] [facility] Work Phone: 01-13-2022 14:12-0500 Heart rate 57 /min [facility] Work Phone: 01-13-2022 14:12-0500 Respiratory rate 16 /min [facility] Work Phone: 01-13-2022 14:12-0500 SaO2% (BldA) [Mass fraction] 96 % [facility] Work Phone: 01-13-2022 14:12-0500 Systolic blood pressure 159 mm[Hg] [facility] Work Phone: 06-27-2021 14:22-0400 Body mass index (BMI) [Ratio] 30.6 kg/m2 Dr. Geoffrey Garza MD Work Phone: [place] [facility] 06-27-2021 14:22-0400 Body mass index (BMI) [Ratio] 30.6 kg/m2 [facility] Work Phone: 06-14-2021 14:45-0400 Body mass index (BMI) [Ratio] 29.5 kg/m2 [facility] Work Phone: 02-18-2021 14:45-0400 Body mass index (BMI) [Ratio] 29.8 kg/m2 [facility] Work Phone: Encounters Encounter Date Encounter Type Care Provider Facility Start: 09-11-2025 ambulatory [facility] Chi Bill Facility:[facility] Start: 09-06-2025 ambulatory Ianmamoufortunato Szymanski cility:[facility] Start: 09-01-2025 ambulatory Channing Mckeon Facility:[facility] Start: 08-30-2025 ambulatory Ianmamoube Bird BACON Fa cility:[facility] Start: 08-25-2025 ambulatory [facility] Facility:[facility] Start: 08-24-2025 End: 08-24-2025 Venecia MCCRAY -[facility] Work Phone: Start: 08-24-2025 End: 08-24-[address] Geoffrey Garza MD Work Phone: -[facility] Start: 08-23-2025 ambulatory Ianreynaldo Augustechristophemiranda OLS Fa cility:[facility] Start: 08-23-2025 Trixie Hodges - [place] Start: 08-16-2025 ambulatory Efnicolmanifortunato Castanedae OLS Fa cility:[facility] Start: 08-16-2025 Trixie Taylor Start: 08-11-2025 End: 08-11-[address] Geoffrey Garza MD Work Phone: -Cardiovascular Services Start: 08-11-2025 End: 08-11-2025 Dr. Kenan Santamaria MD -[facility] Start: 08-11-2025 End: 08-11-2025 ambulatory Husam Chi Bill Facility:[facility] Start: 08-09-2025 ambulatory Ianreynaldo Augustechristophemiranda OLS Fa cility:[facility] Start: 08-09-2025 Trixie Rubi Carroll - [place] Start: 08-08-2025 Non-patient / Non-visit Dr. Pedro Banegas MD -[facility] Work Phone: Start: 08-08-2025 Dr. Pedro Banegas MD -[facility] Work Phone: Start: 08-07-2025 Non-patient / Non-visit Dr. Pedro Banegas MD -[facility] [place] [facility] Work Phone: Start: 08-07[facility] Start: 08-06-2025 Non-patient / [facility] [place] [facility] Work Phone: Start: 08-06-2025 Dr. Pedro Elam [facility] Work Phone: Start: 08-05-2025 Non-patient / Non-visit Dr. Alannah Adams MD [facility] Work Phone: Start: 08-05-2025 Dr. Jim Adams MD -[facility] [place] [facility] Work Phone: Start: 08-05-2025 ambulatory Husam Khan Facility:[facility] Start: 08-05-2025 End: 08-08-2025 Evaluation and management of inpatient Dr. Pedro Banegas MD -[facility] 3 Work Phone: Start: 08-05-2025 End: 08-08-2025 Dr. Pedro Banegas MD -[facility] Work Phone: Start: 08-04-2025 ambulatory Morgan Dubon [facility] ility:[facility] Start: 08-04-2025 Evaluation and management of inpatient Dr. Morgan Dubon DO [facility] 3 Work Phone: Start: 08-04-2025 Non-patient / Non-visit Dr. Camarena [facility] Work Phone: Start: 08-04-[address] Leroy Garza MD Work Phone: -Medical Surgical 3 Start: 08-04-[address] [facility] Work Phone: Start: 08-04-2025 Emergency department patient visit Dr. Geoffrey Garza MD Work Phone: -Emergency Department Work Phone: Start: 08-02-2025 ambulatory Channing Mckeon Facility:[facility] Start: 08-02-2025 Non-patient / Non-visit Dr. Channing sanchez MD -[facility] Start: 08-02-2025 Dr. Channing Mckeon MD -[facility] Start: 08-02-2025 End: 08-02-2025 Admission to same day surgery center Dr. Channing Mckeon MD -[employer]/Special Procedures Work Phone: Start: 08-02-2025 End: 08-02-2025 Dr. Channing Mckeon MD -[facility]/Special Procedures Work Phone: Start: 08-02-2025 End: 08-02-[address] Geoffrey Garza MD Work Phone: -[facility] [employer] [employer]ice/Special Procedures Start: 08-01-2025 End: 08-01-[address] Channing Mckeon MD -[facility] Work Phone: Start: 08-01-2025 End: 08-01-2025 Dr. Channing Mckeon MD -[facility] Work Phone: Start: 08-01-2025 End: 08-01-[address] Geoffrey Garza MD Work Phone: -[facility] Start: 07-27-2025 End: 07-27-2025 Dr. Ilana Medrano DO -Emergency [facility] Work Phone: Start: 07-27-2025 End: 07-27-2025 Emergency department patient visit Dr. Geoffrey Garza MD Work Phone: -Emergency Department Work Phone: Start: 07-27-2025 Non-patient / Non-visit Dr. Channing sanchez MD -[facility] Start: 07-27-2025 End: 07-27-[address] Geoffrey Garza MD Work Phone: -Cardiovascular Services Start: 07-27-2025 End: 07-27-[address] Husam Khan MD -Cardiovascular Services Work Phone: Start: 07-27-2025 End: 07-27-2025 Dr. Channing Mckeon MD -[facility] Start: 07-26-2025 End: 07-27-[address] Geoffrey Garza MD Work Phone: -Laboratory Phy Office 3rd Flr Start: 07-26-2025 End: 07-26-[address] Husam Khan MD -Laboratory Phy Office 3rd Flr Start: 07-26-2025 End: 07-26-2025 Dr. Husam Khan MD -Laboratory Phy Offi ce 3rd Flr Start: 07-26-2025 End: 07-26-2025 ambulatory Husam Len Khan Facility:[facility] Start: 06-22-2025 End: 06-22-2025 Patient encounter procedure La Hernández PA -[facility] Work Phone: Start: 06-22-2025 End: 06-22-2025 La Hernández PA -[facility] Work Phone: Start: 06-22-2025 End: 06-22-[address] Geoffrey Garza MD Work Phone: -[place] [facility] Start: 05-22-2025 End: 05-22-[address] Geoffrey Garza MD -[facility] Work Phone: Start: 05-22-2025 End: 05-22-2025 Dr. Geoffrey Garza MD -[facility] Work Phone: Start: 05-22-2025 End: 05-22-[address] Geoffrey Garza MD Work Phone: -[facility] Start: 05-04-[address] Andrea Garza MD -[facility] [place] [facility] Start: 05-04-2025 Dr. Geoffrey malone MD -[facility] [place] [facility] Start: 05-04-2025 ambulatory Husam Len Khan Facility:[facility] Start: 12-29-2024 End: 12-29-[address] Husam Khan MD -Laboratory Phy Office 3rd Flr Start: 12-29-2024 End: 12-29-2024 ambulatory Husam Len Khan Facility:[facility] Start: 09-02-2023 End: 09-02-[address] Husam Khan Work Phone: [facility] Work Phone: Start: 09-02-2023 End: 09-02-[address] Husam Khan Work Phone: [facility] Work Phone: Start: 07-13-2023 End: 07-13-2023 Patient encounter procedure MD Husam BACON [facility] Work Phone: Start: 07-07-2023 End: 07-07-2023 ambulatory MD Husam Khan [facility] Work Phone: Start: 07-07-2023 End: 07-07-2023 Patient encounter procedure MD Husam BACON [facility] Work Phone: Start: 06-25-2023 End: 06-25-2023 Patient encounter procedure MD Husam BACON [facility]-Labor[facility], Phy Office 3rd Flr Start: 03-18-2023 End: 03-18-2023 Patient encounter procedure MD Husam BACON [facility] Work Phone: Start: 02-10-2023 End: 02-10-2023 ambulatory [facility] Work Phone: Start: 02-10-2023 End: 02-10-2023 Patient encounter procedure [facility], Phy Office 3rd Flr Start: 12-25-2022 End: 12-25-2022 [facility] Start: 10-20-2022 End: 10-20-2022 ambulatory MD Weiner [facility] Work Phone: Start: 10-20-2022 End: 10-20-2022 Patient encounter procedure MD Weiner [facility] Services/Neurology Start: 10-02-2022 Non-patient / Non-visit MD Weiner [facility] Start: 10-02-2022 End: 10-02-2022 ambulatory MD Husam Harrington [facility] Work Phone: Start: 10-02-2022 End: 10-02-2022 Patient encounter procedure [facility]Cardi[facility] Services Start: 09-23-2022 End: 09-23-2022 Patient encounter procedure MD Husam Khan [facility] Start: 08-12-2022 End: 08-12-2022 ambulatory [facility] Work Phone: Start: 08-12-2022 End: 08-12-2022 Patient encounter procedure [facility] Start: 07-14-2022 End: 07-14-2022 Patient encounter procedure [facility] Start: 07-08-2022 End: 07-08-2022 ambulatory MD Weiner [facility] Work Phone: Start: 07-08-2022 End: 07-08-2022 Patient encounter procedure [facility] Start: 06-19-2022 End: 06-19-2022 Patient encounter procedure [facility], Phy Office 3rd Flr Start: 03-04-2022 End: 03-04-2022 Patient encounter procedure [facility], Phy Office 3rd Flr Start: 01-14-2022 End: 01-14-2022 Patient encounter procedure [facility] Start: 01-13-2022 End: 01-13-2022 Patient encounter procedure [facility] Start: 01-08-2022 Registered Recurring [facility] Start: 11-11-2021 Patient encounter procedure [facility] Start: 12-04-2018 Evaluation and management of inpatient [facility] Procedures Date Procedure Procedure Detail Performing Clinician Start: 08-23-2025 Mean corpuscular hemoglobin concentration determination Dr. Geoffrey Garza MD Work Phone: Start: 08-23-[address] Cheri Garza MD Work Phone: Start: 08-23-2025 Nucleated red blood cell count procedure Dr. Geoffrey Garza MD Work Phone: Start: 08-23-2025 Platelet mean volume determination Dr. Geoffrey Garza MD Work Phone: Start: 08-16-2025 Blood count smear mc rscp w/mnl difrntl wbc count Dr. Geoffrey Garza MD Work Phone: Start: 08-16-2025 Mean corpuscular hemoglobin concentration determination Dr. Geoffrey Garza MD Work Phone: Start: 08-16-[address] Cheri Garza MD Work Phone: Start: 08-16-2025 Nucleated red blood cell count procedure Dr. Geoffrey Garza MD Work Phone: Start: 08-16-2025 Platelet mean volume determination Dr. Geoffrey Garza MD Work Phone: Start: 08-09-2025 Blood count smear mc rscp w/mnl difrntl wbc count Dr. Geoffrey Garza MD Work Phone: Start: 08-09-2025 Mean corpuscular hemoglobin concentration determination Dr. Geoffrey Garza MD Work Phone: Start: 08-09-[address] Cheri Garza MD Work Phone: Start: 08-09-2025 Nucleated red blood cell count procedure Dr. Geoffrey Garza MD Work Phone: Start: 08-09-2025 Platelet mean volume determination Dr. Geoffrey Garza MD Work Phone: Start: 08-09-2025 Total cholesterol:HD L ratio measurement Dr. Geoffrey Garza MD Work Phone: Start: 08-09-[address] Geoffrey Garza MD Work Phone: Start: 08-08-2025 Blood count smear mc rscp w/mnl difrntl wbc count Dr. Geoffrey Garza MD Work Phone: Start: 08-08-[address] Geoffrey Garza MD Work Phone: Start: 08-08-2025 Mean corpuscular hemoglobin concentration determination Dr. Geoffrey Garza MD Work Phone: Start: 08-08-[address] Cheri Garza MD Work Phone: Start: 08-08-2025 Nucleated red blood cell count procedure Dr. Geoffrey Garza MD Work Phone: Start: 08-08-2025 Platelet mean volume determination Dr. Geoffrey Garza MD Work Phone: Start: 08-06-[address] Andrea Garza MD Work Phone: Start: 08-06-[address] Geoffrey Garza MD Work Phone: Start: 08-05-2025 Total iron binding capacity measurement Dr. Geoffrey Garza MD Work Phone: Start: 08-04-[address] Cheri Garza MD Work Phone: Start: 08-04-[address] Geoffrey Garza MD Work Phone: Start: 08-04-2025 Urine microscopy: re d cells Dr. Geoffrey Garza MD Work Phone: Start: 08-04-2025 Urnls dip stick/tabl et reagent auto microscopy Dr. Geoffrey Garza MD Work Phone: Start: 08-04-2025 Plain chest X-ray Dr. Jerel Garza MD Work Phone: Start: 08-04-[address] Geoffrey Garza MD Work Phone: Start: 07-27-[address] Geoffrey Garza MD Work Phone: Start: 07-27-2025 Mean corpuscular hemoglobin concentration determination Dr. Geoffrey Garza MD Work Phone: Start: 07-27-2025 Platelet mean volume determination Dr. Geoffrey Garza MD Work Phone: Start: 07-27-2025 CT of abdominal aort a with contrast Dr. Geoffrey Garza MD Work Phone: Start: 07-26-2025 SARS-CoV-2, Influenz a & RSV (PCR) Dr. Geoffrey Garza MD Work Phone: Start: 07-26-2025 Dr. Flori Garza MD Work Phone: Start: 05-04-2025 Albumin/Globulin ratio Dr. Geoffrey Garza MD Work Phone: Start: 05-04-2025 Blood count smear mc rscp w/mnl difrntl wbc count Dr. Geoffrey Garza MD Work Phone: Start: 05-04-[address] Geoffrey Garza MD Work Phone: Start: 05-04-[address]25 Imm[address] reticulocyt e fraction Dr. Geoffrey Garza MD Work Phone: Start: 05-04-[address] M measurement Dr. Geoffrey Garaz MD Work Phone: Start: 05-04-2025 Mean corpuscular hemoglobin concentration determination Dr. Geoffrey Garza MD Work Phone: Start: 05-04-[address] Cheri Garza MD Work Phone: Start: 05-04-2025 Nucleated red blood cell count procedure Dr. Geoffrey Garza MD Work Phone: Start: 05-04-2025 Platelet mean volume determination Dr. Geoffrey Garza MD Work Phone: Start: [...] nmol/L) Toxicity >100 ng/mL (>250 nmol/L) Start: 06-27-2021 Allergen spec ige cr ude allergen extract each Dr. Geoffrey Garza MD Work Phone: Start: 07-04-2019 History of coronary artery bypass grafting S/P CABG x 2 MD Husam Khan Comment on above: [address] [facility] Trife cta pericardial prosthesis; CABG X2 with HARRINGTON to LAD, reverse SVG to ramus intermedius, and exclusion of left atrial appendage with 35 mm Atricure clip (pt poor anticoag candidate d/t hematuria). per Dr. Wayne Rivers 07/04/19 @ [facility] Start: 06-23-2019 History of coronary artery bypass grafting History of coronary artery bypass surgery La MCCRAY Comment on above: CABG X2 with HARRINGTON to LAD, reverse SVG to ramus intermedius, and exclusion of left atrial appendage with 35 mm Atricure clip (pt poor anticoag candidate d/t hematuria). per Dr. Wayne Rivers 07/04/19 @ [facility] Start: 12-09-2018 Microscopic examinat ion of blood, culture VALDEZ LANDIS Comment on above: Order Comment: Speci men Source Comment:Blood Performed By: #### H EMDF, NH33, PT, CMP3, LIPA4, CK3, TROPN, LACT3, MDIFF, PCAL #### [address] [address] Influenza Types A,B Direct FA (RYLAN) MD Husam Khan Influenza Types A,B Direct FA (RYLAN) Respiratory syncytia l virus antigen assay MD Husam Khan Respiratory syncytia l virus antigen assay Urine culture Plan of Treatment Date Care Activity Detail Author Start: 08-24-2025 Ankle brachial pressure index [facility] Start: 08-24-2025 Administration of bl ood product [facility] Start: 08-24-2025 [facility] Start: 08-08-2025 Patient discharge [facility] Start: 08-08-2025 Inhalation therapy procedure [facility] Start: 08-06-2025 Bacteria identified in Blood by Culture Blood Culture [facility] Start: 08-06-2025 Blood culture Blood Culture [facility] Start: 08-06-2025 [facility] Start: 08-06-2025 Application of ice c ollar, cap or bag [facility] Start: 08-05-2025 Following clinical p athway protocol [facility] Start: 08-05-2025 Admission procedure [facility] Start: 08-04-2025 Ambulation without limitation [facility] Start: 08-04-2025 Assessment of risk o f venous thromboembolism [facility] Start: 08-04-2025 Insertion of cathete r into peripheral vein [facility] Start: 08-04-2025 Measuring intake and output [facility] Start: 08-04-2025 Providing care accor ding to standard [facility] Start: 08-04-2025 Referral for physical therapy [facility] Start: 08-04-2025 Referral to occupati onal therapist [facility] Start: 08-04-2025 Referral to service [facility] Start: 08-04-2025 [facility] Start: 08-04-2025 Following clinical p athway protocol [facility] Start: 08-04-2025 Verification routine [facility] Start: 08-04-2025 Admission procedure [facility] Start: 08-04-2025 Hospital admission, emergency, from emergency room, medical nature [facility] Start: 08-04-2025 [facility] Start: 08-02-2025 Introduction catheter aorta [facility] Start: 08-02-2025 Patient discharge [facility] Start: 07-27-2025 [facility] Start: 02-10-2023 Procedure [facility] Bilirubin measurement, urine [facility] Hemoglobin [Presence] in Urine [facility] Measurement of keton es in urine using dipstick [facility] Microscopic urinalysis [facility] Microscopic urinalysis [facility] Organism count, micr oscopic method [facility] Patient Education [facility] Work Phone: pH of Urine [facility] Procedure [facility] Specific gravity of Urine [facility] Urine blood test [facility] Urine dipstick for glucose W [facility] Urine dipstick for l eukocyte esterase [facility] Urine dipstick for nitrite [facility] Urine dipstick for protein W [facility] Urine examination [facility] Urine microscopy: ep ithelial cells [facility] Urine microscopy: ep ithelial cells [facility] Urine microscopy: red cells [facility] Urine Microscopy: white cells [facility] Urobilinogen [Presen ce] in Urine [facility] US Heart [facility] US Lower extremity artery [facility] White blood cell count [facility] Immunizations Immunization Date Immunization Notes Care Provider Fa cility 01-16-2021 Covid (Pfizer) MD Weiner [facility] 12-27-2020 Covid (Pfizer) MD Weiner [facility] Payers Date Payer Category Payer Medicare [id number] 2021 Private Health Insurance [id number] 2021 Self-pay [id number] 1940 Unknown [id number] 01.08. [id number] Medicare Private Health Insurance Unknown [id number] [id number] Unknown [id number] .16.8 40.1.812944.3.579.2.462 Unknown [id number] .16.8 40.1.197518.3.579.2.462 Unknown [id number] ..[id number] 40.1.388051.3.579.2.462 Unknown [id number] ..[id number] 40.1.594943.3.579.2.462 Unknown [id number] 2.16.8 40.1.982393.3.579.2.462 Unknown [id number] 2.16.8 40.1.136106.3.579.2.462 Unknown [id number] 2.16.8 40.1.657057.3.579.2.462 Unknown [id number] 2.16.8 40.1.064481.3.579.2.462 Unknown [id number] 2.16.8 40.1.518007.3.579.2.462 Unknown [id number] 2.16.8 40.1.371088.3.579.2.462 Unknown [id number] 2.16.8 40.1.587140.3.579.2.462 Unknown [id number] 2.16.8 40.1.646854.3.579.2.462 Unknown [id number] 2.16.8 40.1.959540.3.579.2.462 Unknown [id number] 2.16.8 40.1.214841.3.579.2.462 Unknown [id number] 2.16.8 40.1.443872.3.579.2.462 Unknown [id number] 2.16.8 40.1.514034.3.579.2.462 Unknown [id number] 2.16.8 40.1.704356.3.579.2.462 Unknown [id number] 2.16.8 40.1.947959.3.579.2.462 Unknown [id number] 2.16.8 40.1.274480.3.579.2.462 Unknown [id number] 2.16.8 40.1.869964.3.579.2.462 Unknown [id number] 2.16.8 40.1.441665.3.579.2.462 Unknown [id number] 2.16.8 40.1.394941.3.579.2.462 Unknown [id number] 2.16.8 40.1.904323.3.579.2.462 Unknown [id number] 2.16.8 40.1.423484.3.579.2.462 Unknown [id number] 2.16.8 40.1.052878.3.579.2.462 Unknown [id number] 2.16.8 40.1.808148.3.579.2.462 Unknown [id number] 2.16.8 40.1.365712.3.579.2.462 Unknown [id number] 2.16.8 40.1.549297.3.579.2.462 Unknown [id number] 2.16.8 40.1.147782.3.579.2.462 Social History Date Type Detail Facility Start: 01-14-2022 End: 03-18-2023 Tobacco smoking status NHIS Unknown if ever smoked [facility] Start: 07-13-2019 Occasional [facility] Start: 07-13-2019 None [facility] Start: 07-14-2019 With Family [facility] Start: 07-13-2019 Non-smoker [facility] Start: 1940 Sex Assigned At Male W [facility] Start: 03-18-2023 End: 08-04-2025 Tobacco smoking status NHIS Ex-smoker (finding) [facility] Sex [facility] Medical Equipment Procedure Code Equipment Code Equipment Origin al Text Equipment Identifier Dates [id number] FDA Start: 08-02-2025 ([id number] FDA Start: 08-02-2025 Goals Date Patient Goal Desired Activity /State Functional Status Date Assessment Result Facility 08-08-2025 Functional status Chair;Bedpan [facility] Work Phone: 08-07-2025 Functional status Ambulates [facility] Work Phone: Mental Status Date Assessment Result Facility 08-24-2025 Cognitive function Voice/Name [facility] Work Phone: 08-08-2025 Cognitive function Voice/Name [facility] Work Phone: 08-07-2025 Cognitive function Voice/Name [facility] Work Phone: 08-04-2025 Cognitive function Level Of Cons ciousness Awake;Alert [facility] Work Phone: Clinical Notes 06-23-2019 to 08-08-2025 Note Date & Type Note Facility 08-08-2025 Discharge summary Note Date/Time August 08, 2025 12:44pm [facility] Medical Records Department [address] [place] [address] Discharge Summary 08/08/25 1239 MR#: [id number] Acct: [id number] Name: ELIAS SHAH Rep #:[id number] : 1940 85 From: Pedro Soilman PCP: Dr. Husam Khan MD Status:ADM I N Location: [place] [address] Providers Date of Admission: 08/05/25 Date of Discharge: 08/08/25 Primary Care Physician: Dr. 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 Patient had pain preoperatively. 1. 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 Angioplasty and covered stent right popliteal artery to exclude pseudoaneurysm on 08/02/[address] Mckeon ? PT/OT ? His white count is elevated and most likely reactive leukocytosis after intervention which was done on 08/02/2025. No fever or hypotension or systemic symptoms of infection. Blood culture is ordered. Antibiotic not indicated yet ? Continue monitor for infectious etiologies if his white count does not completely resolve Mild swelling at the right popliteal region probably hematoma. It is tender Discussed with the vascular surgeon. His pain is same as prior to vascular stenting and it is expected. On Tylenol, oxycodone and muscle relaxant. Cold compression 08/07: Continue pain medication, physical therapy. 08/08: Pain is controlled, states 7?8/10 intensity. Patient discharged on oxycodone. OARRS reviewed. Unintentional overdose risk 8T. Prescribed oxycodone 2.5-5 mg q. 4 hourly as needed for moderate to severe pain respectively. Total 7 tablets given. 2. MAURO ? Baseline creatinine is around 1 and his creatinine on admission was 1.53 ? Received IV fluids and his creatinine did improve slightly to 1.31 08/06: Creatinine 1.0. MAURO resolved. Discontinue IV fluid. 08/08: Can resume losartan after 3 days. 3. Worsening acute on chronic anemia ? Baseline hemoglobin around 12-13, his hemoglobin on 07/27/2025 was 9.3 this is down from 11.4 on 05/04/2025 currently 8.6 ? 08/06: Hemoglobin decreased to 8.0. 08/07: Hemoglobin 8.0. 08/08: Hemoglobin improvement 8.7/27%. On baby aspirin and Plavix to continue. 4. CAD status post stent/bioprosthetic AVR/paroxysmal A-fib/essential HTN/HLD ? Blood pressure is in normal range 121/86. Heart rate controlled ? Continue with his home blood pressure medications Monitor BP and adjust accordingly. 5. Anxiety/depression/mild cognitive impairment ? Continue with his home medications. Chronic disease 6. BPH with obstructive symptoms ? Chronic ? Continue with Flomax 7. GERD ? Continue with Pepcid DVT: Lovenox Discharge medication reconciliation done. Discharge follow-up instructions completed. Discharge process discussed with the patient and all questions wereanswered to patient's satisfaction. Follow with PCP in 1 to 2 weeks Total time spent, exact 35 minutes on discharge meds reconciliation, examination, coordination of care with nurses and ancillary staff, review of imaging and blood test and discussion with the patient on follow-up instructions. Laboratory Results 08/05/25 03:33: Iron 14 L, TIBC 149 L, Iron Saturation 9.4, Unsaturated IBC 135 L, Ferritin 521 H 08/06/25 03:57: WBC 17.1 H, RBC 3.24 L, Hgb 8.0 L, Hct 26.9 L, MCV 83.0, MCH 24.7 L, MCHC 29.7 L, RDW Std Deviation 49.5 H, RDW Coeff of Genesis 16.5 H, Plt Count 237, MPV 9.1, Immature Gran % (Auto) 2.500 H, Neut % (Auto) 78.4 H, Lymph % (Auto) 8.0 L, [place] % (Auto) 10.9 H, Eos % (Auto) 0.0, Baso % (Auto) 0.2, Absolute Neuts (auto) 13.4 H, Absolute Lymphs (auto) 1.37, Nucleated RBC % 0, Differential Comment SCANNED, Sodium 135, Potassium 4.7, Chloride 107, Carbon Dioxide 18.5 L, Anion Gap 10, BUN 24 H, Creatinine 1.00, Estim Creat Clear Calc 58.09, Est GFR (MDRD) Non-Af 73, BUN/Creatinine Ratio 24.3 H, Glucose 121 H, Calcium 8.0 Medications at Discharge Home Medications tamsulosin 0.4 mg capsule 0.4 mg PO QHS urine flow 08/20/19 famotidine 40 mg tablet (Pepcid) 40 mg PO DAILY 08/10/20 citalopram 10 mg tablet 10 mg PO DAILY 02/18/21 donepezil 10 mg tablet 10 mg PO DAILY 02/18/21 quetiapine 25 mg tablet 25 mg PO BID 02/18/21 cyanocobalamin (vitamin B-12) 1,000 mcg capsule 1,000 mcg PO DAILY 07/15/21 ascorbate calcium (vitamin C) 500 mg tablet 500 mg PO DAILY 01/13/22 carvedilol 3.125 mg tablet 3.125 mg PO BID #180 tabs 03/28/24 hydralazine 50 mg tablet 50 mg PO TID #270 TABLETS 04/04/25 amlodipine 5 mg tablet 5 mg PO QHS #90 tabs 06/22/25 vit C 250 mg-vit E 90 mg-zinc 40 mg-copper 1 cl-nmdccg-vawwim capsule (PreserVision AREDS-2) 1 tab PO BID 06/22/25 rosuvastatin 20 mg tablet (Crestor) 10 mg (1/2 x 20 mg) PO DAILY #30 tabs 07/14/25 albuterol sulfate 90 mcg/actuation aerosol inhaler 2 puff inhalation Q6H PRN shortness of breath or wheezing 08/01/25 clopidogrel 75 mg tablet 75 mg PO DAILY #90 tabs 08/03/25 losartan 50 mg tablet 50 mg PO DAILY #90 tabs 08/03/25 Held on 08/08/25. Instructions: Resume after 3 days acetaminophen 500 mg tablet 1,000 mg (2 x 500 mg) PO Q8 #0 tabs 08/08/25 oxycodone 5 mg tablet 2.5 mg (1/2 x 5 mg) PO Q6H PRN PRN Pain Score 6-10 3 days #7 tabs 08/08/25 sennosides 8.6 mg-docusate sodium 50 mg tablet (Stimulant Laxative Plus) 2 tab PO BID #0 tabs 08/08/25 Physical Exam Narrative Seen and examined. Right lower leg pain is 7?8/10 intensity, better. Physical therapy to continue. Continue stool softener. Physical exam General: Alert, Oriented x3, Cooperative. BMI 29.7 kg/m?. HEENT: Atraumatic, PERRLA, EOMI, Normocephalic. Oral: No Gingival or Mucosal Lesions/ Ulcerations Neck: Supple, No JVD, Negative Carotid Bruits Chest wall/Lungs: Air entry diminished in bilateral lung bases. No crepitation/rhonchi Cardiovascular: Regular rate and rhythm, Normal S1,S2, No M/G/R. Pulses palpable lower bilateral popliteal, PT and dorsalis pedis similar in volume. Abdomen: Bowel Sounds Present, Soft, Non Tender, Non-Distended : No dysuria. No renal angle tenderness. No suprapubic tenderness. Extremities: No edema, Capillary Refill Less than 3 Seconds Skin: No rashes, No breakdown. Palpable swelling of right popliteal region. Musculoskeletal: No Tenderness to Palpation of Joints or Extremities Neurological: Cranial nerves II-XII grossly intact, DTR 2+/4. No acute focal neurological deficit. Psych/Mental Status: Flat affect. Weight / BMI Weight Weight: 201 lb 2.066 oz Body Mass Index (BMI) 29.7 ABG / Lab / Microbiology Data 08/08/25 04:22 08/08/25 04:22 Laboratory: Laboratory Results - last 24 hr 08/08/25 04:22: WBC 8.1, RBC 3.32 L, Hgb 8.7 L, Hct 27.3 L, MCV 82.2, MCH 26.2 L, MCHC 31.9 L D, RDW Std Deviation 49.8 H, RDW Coeff of Genesis 16.7 H, Plt Count 239, MPV 8.7, Immature Gran % (Auto) 2.900 H, Neut % (Auto) 63.2, Lymph % (Auto)17.1 L, [place] % (Auto) 15.9 H, Eos % (Auto) 0.7, Baso % (Auto) 0.2, Absolute Neuts (auto) 5.1, Absolute Lymphs (auto) 1.38, Nucleated RBC % 0, Sodium 137, Potassium 4.6, Chloride 105, Carbon Dioxide 23.3, Anion Gap 9, BUN 20 H, Creatinine 1.04, Estim Creat Clear Calc 55.85, Est GFR (MDRD) Non-Af 69, BUN/Creatinine Ratio 18.8, Glucose 97, Calcium 8.4 Microbiology: Microbiology 08/06/25 12:01 Blood Culture (Wb) - Anticubital Left Blood Culture - Preliminary No growth in 48 hours. D/C Instructions DC O2, CPAP, BIPAP Needs Home O2 Discharge instructions: No Meaningful Use Info Meaningful Use Meaningful Use Diagnoses (Choose all that apply): None applicable Discharge Plan Admission Admit Date/Time: 08/05/25 12:13 Attending Provider: Pedro Banegas Primary Care Provider: Husam Khan [employer] Providers: Morgan Dubon; Jim Adams Discharge Orders/Prescriptions Prescriptions: New acetaminophen 500 mg Tablet 1,000 mg PO Q8 Qty: 0 0RF Rx Instructions: Acetaminophen 1 g Q8 hourly for 1 week for pain and then every 8 hourly as needed for pain oxycodone 5 mg Tablet 2.5 mg PO Q6H PRN PRN (Reason: Pain Score 6-10) 3 Days Qty: 7 0RF sennosides-docusate sodium [Stimulant Laxative Plus] 8.6-50 mg Tablet 2 tab PO BID Qty: 0 0RF Continued famotidine [Pepcid] 40 mg tablet 40 mg PO DAILY citalopram 10 mg tablet 10 mg PO DAILY Patient Comments: Take 1 Tablet orally once per Day for 30 Days donepezil 10 mg tablet 10 mg PO DAILY Patient Comments: TAKE 1 TABLET BY MOUTH DAILY WITH SUPPER quetiapine 25 mg tablet 25 mg PO BID cyanocobalamin (vitamin B-12) 1,000 mcg capsule 1,000 mcg PO DAILY ascorbate calcium (vitamin C) 500 mg tablet 500 mg PO DAILY PreserVision AREDS-2 250-90-40-1 mg capsule 1 tab PO BID amlodipine 5 mg tablet 5 mg PO QHS Qty: 90 3RF tamsulosin 0.4 MG capsule 0.4 mg PO QHS albuterol sulfate 90 mcg/actuation HFA aerosol inhaler 2 puff INHALATION Q6H PRN (Reason: shortness of breath or wheezing) carvedilol 3.125 mg tablet 3.125 mg PO BID Qty: 180 3RF Rx Instructions: must administer with a meal/food hydralazine 50 mg tablet 50 mg PO TID Qty: 270 1RF rosuvastatin [Crestor] 20 mg tablet 10 mg PO DAILY Qty: 30 12RF clopidogrel 75 mg tablet 75 mg PO DAILY Qty: 90 4RF Held losartan 50 mg tablet 50 mg PO DAILY Qty: 90 4RF Hold Instructions: Resume after 3 days Referrals / Follow Up: Channing Mckeon MD [Med Staff - Active Staff] - Within 1 Month Husam Khan Chi, MD [Primary Care Provider] - Within 2 Weeks Disposition Disposition (needs filled in before D/C Order can be placed): [facility] Charges/Coding Visit Charges Inpatient E&M: 43370 Disch Hosp >30min 08/08/25 1244 <Electronically signed by Pedro Banegas MD> Cosigner Signature (if applicable): CC: Dr. Channing Mckeon MD; Dr. Pedro Banegas MD; Dr. Husam Khan MD~ Signed [facility] Work Phone: [phone] Discharge summary Author Pedro Banegas [facility] Note Date/Time August 08, 2025 12:39pm [facility] Medical Records Department [address] [place], [place] [address] [address] Transfer to [facility] MR#: [id number] Acct: [id number] Name: ELIAS SHAH Rep #:[id number] : 1940 85 From: Pedro Soliman PCP: Dr. Husam Khan MD Status:ADM I N Certification of patient admission REQUIRED AT TIME OF ADMISSION. I CERTIFY THAT POST-HOSPITAL ECF SERVICES ARE REQUIRED TO BE GIVEN ON AN IN-PATIENT BASIS BECAUSE OF THE ABOVE NAMED PATIENT'S NEED FOR ASSISTED CARE ON A CONTINUING BASIS FOR THE CONDITION(S) FOR WHICH HE/SHE WAS RECEIVING IN-PATIENT HOSPITAL SERVICES PRIOR TO HIS/HER TRANSFER TO THE ECF. 08/08/25 1239<Electronically signed by Pedro Banegas MD> Diet Diet Order/Speech Therapy: INPATIENT Hospital Diet / Speech Therapy Order(s) 08/04/25 17:49 Diet: Cardiac - Heart Healthy Food consistency:: Regular Liquid Consistency:: Regular/Thin Routine Orders/Code Status Suppository Type: Dulcolax 10mg Suppository Frequency: Daily PRN DC O2, CPAP, BIPAP needs Home O2 Discharge instructions: No Therapies Extremity Affected:: Bilateral Lower Physical Therapy: Eval and Treat Occupational Therapy: Eval and Treat Speech Therapy: Eval and Treat Problem/Diagnosis (1) Debility: Status: Acute Code(s): R53.81 - Other malaise (2) MAURO (acute kidney injury): Status: Acute Code(s): N17.9 - Acute kidney failure, unspecified (3) Leg pain, right: Status: Acute Code(s): M79.604 - Pain in right leg Plan 1. 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 Angioplasty and covered stent right popliteal artery to exclude pseudoaneurysm on 08/02/[address] Mckeon ? PT/OT ? His white count is elevated and most likely reactive leukocytosis after intervention which was done on 08/02/2025. No fever or hypotension or systemic symptoms of infection. Blood culture is ordered. Antibiotic not indicated yet ? Continue monitor for infectious etiologies if his white count does not completely resolve Mild swelling at the right popliteal region probably hematoma. It is tender Discussed with the vascular surgeon. His pain is same as prior to vascular stenting and it is expected. On Tylenol, oxycodone and muscle relaxant. Cold compression 08/07: Continue pain medication, physical therapy. 2. MAURO ? Baseline creatinine is around 1 and his creatinine on admission was 1.53 ? Received IV fluids and his creatinine did improve slightly to 1.31 08/06: Creatinine 1.0. MAURO resolved. Discontinue IV fluid. 3. Worsening acute on chronic anemia ? Baseline hemoglobin around 12-13, his hemoglobin on 07/27/2025 was 9.3 this is down from 11.4 on 05/04/2025 currently 8.6 ? 08/06: Hemoglobin decreased to 8.0. 08/07: Hemoglobin 8.0. 4. CAD status post stent/bioprosthetic AVR/paroxysmal A-fib/essential HTN/HLD ? Blood pressure is in normal range 121/86. Heart rate controlled ? Continue with his home blood pressure medications Monitor BP and adjust accordingly. ? Hold his losartan secondary to his MAURO 5. Anxiety/depression/mild cognitive impairment ? Continue with his home medications. Chronic disease 6. BPH with obstructive symptoms ? Chronic ? Continue with Flomax 7. GERD ? Continue with Pepcid DVT: Lovenox Laboratory Results 08/05/25 03:33: Iron 14 L, TIBC 149 L, Iron Saturation 9.4, Unsaturated IBC 135 L, Ferritin 521 H 08/06/25 03:57: WBC 17.1 H, RBC 3.24 L, Hgb 8.0 L, Hct 26.9 L, MCV 83.0, MCH 24.7 L, MCHC 29.7 L, RDW Std Deviation 49.5 H, RDW Coeff of Genesis 16.5 H, Plt Count 237, MPV 9.1, Immature Gran % (Auto) 2.500 H, Neut % (Auto) 78.4 H, Lymph % (Auto) 8.0 L, [place] % (Auto) 10.9 H, Eos % (Auto) 0.0, Baso % (Auto) 0.2, Absolute Neuts (auto) 13.4 H, Absolute Lymphs (auto) 1.37, Nucleated RBC % 0, Differential Comment SCANNED, Sodium 135, Potassium 4.7, Chloride 107, Carbon Dioxide 18.5 L, Anion Gap 10, BUN 24 H, Creatinine 1.00, Estim Creat Clear Calc 58.09, Est GFR (MDRD) Non-Af 73, BUN/Creatinine Ratio 24.3 H, Glucose 121 H, Calcium 8.0 Allergies/Procedures Done in Hospital Allergies atorvastatin Adverse Reaction (Intermediate, Verified 07/27/25 14:23) Myalgias Type of Care/Length of Stay Estimated LOS: Convalescent Care Less Than 30 days Type of Care Needed: Skilled Rehab Potential: Good Prognosis: Good Additional Orders/Day of Discharge Day of Discharge: 08/08/25 Dietary and Speech Recommendations Dietitian Recommendations/Changes: Continue Cardiac diet as ordered Continue to follow and monitor for changes in pt nutritional status Discharge Plan Admission Admit Date/Time: 08/05/25 12:13 Attending Provider: Pedro Banegas Primary Care Provider: Husam Khan [employer] Providers: Morgan Dubon; Jim Adams Discharge Orders/Prescriptions Prescriptions: New acetaminophen 500 mg Tablet 1,000 mg PO Q8 Qty: 0 0RF Rx Instructions: Acetaminophen 1 g Q8 hourly for 1 week for pain and then every 8 hourly as needed for pain oxycodone 5 mg Tablet 2.5 mg PO Q6H PRN PRN (Reason: Pain Score 6-10) 3 Days Qty: 7 0RF sennosides-docusate sodium [Stimulant Laxative Plus] 8.6-50 mg Tablet 2 tab PO BID Qty: 0 0RF Continued famotidine [Pepcid] 40 mg tablet 40 mg PO DAILY citalopram 10 mg tablet 10 mg PO DAILY Patient Comments: Take 1 Tablet orally once per Day for 30 Days donepezil 10 mg tablet 10 mg PO DAILY Patient Comments: TAKE 1 TABLET BY MOUTH DAILY WITH SUPPER quetiapine 25 mg tablet 25 mg PO BID cyanocobalamin (vitamin B-12) 1,000 mcg capsule 1,000 mcg PO DAILY ascorbate calcium (vitamin C) 500 mg tablet 500 mg PO DAILY PreserVision AREDS-2 250-90-40-1 mg capsule 1 tab PO BID amlodipine 5 mg tablet 5 mg PO QHS Qty: 90 3RF tamsulosin 0.4 MG capsule 0.4 mg PO QHS albuterol sulfate 90 mcg/actuation HFA aerosol inhaler 2 puff INHALATION Q6H PRN (Reason: shortness of breath or wheezing) carvedilol 3.125 mg tablet 3.125 mg PO BID Qty: 180 3RF Rx Instructions: must administer with a meal/food hydralazine 50 mg tablet 50 mg PO TID Qty: 270 1RF rosuvastatin [Crestor] 20 mg tablet 10 mg PO DAILY Qty: 30 12RF clopidogrel 75 mg tablet 75 mg PO DAILY Qty: 90 4RF Held losartan 50 mg tablet 50 mg PO DAILY Qty: 90 4RF Hold Instructions: Resume after 3 days Referrals / Follow Up: Cahnning Mckeon MD [Med Staff - Active Staff] - Within 1 Month Husam Khan Chi, MD [Primary Care Provider] - Within 2 Weeks Disposition Disposition (needs filled in before D/C Order can be placed): [facility] 08/08/25 1239 <Electronically signed by Pedro Banegas MD> Cosigner Signature (if applicable): CC: Dr. Morgan Dubon DO; Dr. Jim Adams MD; Dr. Husam Khan MD ~ [facility] Work Phone: [phone] 461-663509-16-2025 Hospital Discharge instructionsAdditional Instructions Date of Discharge: 08/08/25[facility] Work Phone: [phone] Discharge summary [facility] Medical Records Department [address] [place] [address] Discharge Summary 08/08/25 1239 MR#: [id number] Acct: [id number] Name: ELIAS SHAH Rep #:[id number] : 1940 85 From: Pedro Soliman PCP: Dr. Husam Khan MD Status:ADM I N [facility] Prov[facility] Date of Admission: 08/05/25 Date of Discharge: 08/08/25 Primary Care Physician: Dr. 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 Patient had pain preoperatively. 1. 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 Angioplasty and covered stent right popliteal artery to exclude pse udoaneurysm on 08/02/[address] Mckeon ? PT/OT ? His white count is elevated and most likely reactive leukocytosis after intervention which was done on 08/02/2025. No fever or hypotension or systemic symptoms of infection. Blood culture is ordered. Antibiotic not indicated yet ? Continue monitor for infectious etiologies if his white count does not completely resolve Mild swelling at the right popliteal region probably hematoma. It is tender Discussed with the vascular surgeon. His pain is same as prior to vascular stenting and it is expected. On Tylenol, oxycodone and muscle relaxant. Cold compression 08/07: Continue pain medication, physical therapy. 08/08: Pain is controlled, states 7?8/10 intensity. Patient discharged on oxycodone. OARRS reviewed.Unintentional overdose risk 8T. Prescribed oxycodone 2.5-5 mg q. 4 hourly as needed for moderate tosevere pain respectively. Total 7 tablets given. 2. MAURO ? Baseline creatinine is around 1 and his creatinine on admission was 1.53 ? Received IV fluids and his creatinine did improve slightly to 1.31 08/06: Creatinine 1.0. MAURO resolved. Discontinue IV fluid. 08/08: Can resume losartan after 3 days. 3. Worsening acute on chronic anemia ? Baseline hemoglobin around 12-13, his hemoglobin on 07/27/2025 was 9.3 this is down from 11.4 on 05/04/2025 currently 8.6 ? 08/06: Hemoglobin decreased to 8.0. 08/07: Hemoglobin 8.0. 08/08: Hemoglobin improvement 8.7/27%. On baby aspirin and Plavix to continue. 4. CAD status post stent/bioprosthetic AVR/paroxysmal A-fib/essential HTN/HLD ? Blood pressure is in normal range 121/86. Heart rate controlled ? Continue with his home blood pressure medications Monitor BP and adjust accordingly. 5. Anxiety/depression/mild cognitive impairment ? Continue with his home medications. Chronic disease 6. BPH with obstructive symptoms ? Chronic ? Continue with Flomax 7. GERD ? Continue with Pepcid DVT: Lovenox Discharge medication reconciliation done. Discharge follow-up instructions completed. Discharge process discussed with the patient and all questions wereanswered to patient's satisfaction. Follow with PCP in 1 to 2 weeks Total time spent, exact 35 minutes on discharge meds reconciliation, examination, coordination of care with nurses and ancillary staff, review of imaging and blood test and discussion with the patient on follow-up instructions. Laboratory Results 08/05/25 03:33: Iron 14 L, TIBC 149 L, Iron Saturation 9.4, Unsaturated IBC 135 L, Ferritin 521 H 08/06/25 03:57: WBC 17.1 H, RBC 3.24 L, Hgb 8.0 L, Hct 26.9 L, MCV 83.0, MCH 24.7 L, MCHC 29.7 L, RDW Std Deviation 49.5 H, RDW Coeff of Genesis 16.5 H, Plt Count 237, MPV 9.1, Immature Gran % (Auto) 2.500 H, Neut % (Auto) 78.4 H, Lymph % (Auto) 8.0 L, [place] % (Auto) 10.9 H, Eos % (Auto) 0.0, Baso % (Auto) 0.2, Absolute Neuts (auto) 13.4 H, Absolute Lymphs (auto) 1.37, Nucleated RBC % 0, Differential Comment SCANNED, Sodium 135, Potassium 4.7, Chloride 107, Carbon Dioxide 18.5 L, Anion Gap 10, BUN 24 H, Creatinine 1.00, Estim Creat Clear Calc 58.09, Est GFR (MDRD) Non-Af 73, BUN/Creatinine Ratio 24.3 H, Glucose 121 H, Calcium 8.0 Medications at Discharge Home Medications tamsulosin 0.4 mg capsule 0.4 mg PO QHS urine flow 08/20/19 famotidine 40 mg tablet (Pepcid) 40 mg PO DAILY 08/10/20 citalopram 10 mg tablet 10 mg PO DAILY 02/18/21 donepezil 10 mg tablet 10 mg PO DAILY 02/18/21 quetiapine 25 mg tablet 25 mg PO BID 02/18/21 cyanocobalamin (vitamin B-12) 1,000 mcg capsule 1,000 mcg PO DAILY 07/15/21 ascorbate calcium (vitamin C) 500 mg tablet 500 mg PO DAILY 01/13/22 carvedilol 3.125 mg tablet 3.125 mg PO BID #180 tabs 03/28/24 hydralazine 50 mg tablet 50 mg PO TID #270 TABLETS 04/04/25 amlodipine 5 mg tablet 5 mg PO QHS #90 tabs 06/22/25 vit C 250 mg-vit E 90 mg-zinc 40 mg-copper 1 hf-abmkbi-ffikap capsule (PreserVision AREDS-2) 1 tab PO BID 06/22/25 rosuvastatin 20 mg tablet (Crestor) 10 mg (1/2 x 20 mg) PO DAILY #30 tabs 07/14/25 albuterol sulfate 90 mcg/actuation aerosol inhaler 2 puff inhalation Q6H PRN shortness of breath orwheezing 08/01/25 clopidogrel 75 mg tablet 75 mg PO DAILY #90 tabs 08/03/25 losartan 50 mg tablet 50 mg PO DAILY #90 tabs 08/03/25 Held on 08/08/25. Instructions: Resume after 3 days acetaminophen 500 mg tablet 1,000 mg (2 x 500 mg) PO Q8 #0 tabs 08/08/25 oxycodone 5 mg tablet 2.5 mg (1/2 x 5 mg) PO Q6H PRN PRN Pain Score 6-10 3 days #7 tabs 08/08/25 sennosides 8.6 mg-docusate sodium 50 mg tablet (Stimulant Laxative Plus) 2 tab PO BID #0 tabs 08/08/25 Physical Exam Narrative Seen and examined. Right lower leg pain is 7?8/10 intensity, better. Physical therapy to continue. Continue stool softener. Physical exam General: Alert, Oriented x3, Cooperative. BMI 29.7 kg/m?. HEENT: Atraumatic, PERRLA, EOMI, Normocephalic. Oral: No Gingival or Mucosal Lesions/ Ulcerations Neck: Supple, No JVD, Negative Carotid Bruits Chest wall/Lungs: Air entry diminished in bilateral lung bases. No crepitation/rhonchi Cardiovascular: Regular rate and rhythm, Normal S1,S2, No M/G/R. Pulses palpable lower bilateral popliteal, PT and dorsalis pedis similar in volume. Abdomen: Bowel Sounds Present, Soft, Non Tender, Non-Distended : No dysuria. No renal angle tenderness. No suprapubic tenderness. Extremities: No edema, Capillary Refill Less than 3 Seconds Skin: No rashes, No breakdown. Palpable swelling of right popliteal region. Musculoskeletal: No Tenderness to Palpation of Joints or Extremities Neurological: Cranial nerves II-XII grossly intact, DTR 2+/4. No acute focal neurological deficit. Psych/Mental Status: Flat affect. Weight / BMI Weight Weight: 201 lb 2.066 oz Body Mass Index (BMI) 29.7 ABG / Lab / Microbiology Data 08/08/25 04:22 08/08/25 04:22 Laboratory: Laboratory Results - last 24 hr 08/08/25 04:22: WBC 8.1, RBC 3.32 L, Hgb 8.7 L, Hct 27.3 L, MCV 82.2, MCH 26.2 L, MCHC 31.9 L D, RDW Std Deviation 49.8 H, RDW Coeff of Genesis 16.7 H, Plt Count 239, MPV 8.7, Immature Gran % (Auto) 2.900 H, Neut % (Auto) 63.2, Lymph % (Auto)17.1 L, [place] % (Auto) 15.9 H, Eos % (Auto) 0.7, Baso % (Auto)0.2, Absolute Neuts (auto) 5.1, Absolute Lymphs (auto) 1.38, Nucleated RBC % 0, Sodium 137, Potassium 4.6, Chloride 105, Carbon Dioxide 23.3, Anion Gap 9, BUN 20 H, Creatinine 1.04, Estim Creat ClearCalc 55.85, Est GFR (MDRD) Non-Af 69, BUN/Creatinine Ratio 18.8, Glucose 97, Calcium 8.4 Microbiology: Microbiology 08/06/25 12:01 Blood Culture (Wb) - Anticubital Left Blood Culture - Preliminary No growth in 48 hours. D/C Instructions DC O2, CPAP, BIPAP Needs Home O2 Discharge instructions: No Meaningful Use Info Meaningful Use Meaningful Use Diagnoses (Choose all that apply): None applicable Discharge Plan Admission Admit Date/Time: 08/05/25 12:13 Attending Provider: Pedro Banegas Primary Care Provider: Husam Khan [employer] Providers: Morgan Dubon; Jim Adams Discharge Orders/Prescriptions Prescriptions: New acetaminophen 500 mg Tablet 1,000 mg PO Q8 Qty: 0 0RF Rx Instructions: Acetaminophen 1 g Q8 hourly for 1 week for pain and then every 8 hourly as needed for pain oxycodone 5 mg Tablet 2.5 mg PO Q6H PRN PRN (Reason: Pain Score 6-10) 3 Days Qty: 7 0RF sennosides-docusate sodium [Stimulant Laxative Plus] 8.6-50 mg Tablet 2 tab PO BID Qty: 0 0RF Continued famotidine [Pepcid] 40 mg tablet 40 mg PO DAILY citalopram 10 mg tablet 10 mg PO DAILY Patient Comments: Take 1 Tablet orally once per Day for 30 Days donepezil 10 mg tablet 10 mg PO DAILY Patient Comments: TAKE 1 TABLET BY MOUTH DAILY WITH SUPPER quetiapine 25 mg tablet 25 mg PO BID cyanocobalamin (vitamin B-12) 1,000 mcg capsule 1,000 mcg PO DAILY ascorbate calcium (vitamin C) 500 mg tablet 500 mg PO DAILY PreserVision AREDS-2 250-90-40-1 mg capsule 1 tab PO BID amlodipine 5 mg tablet 5 mg PO QHS Qty: 90 3RF tamsulosin 0.4 MG capsule 0.4 mg PO QHS albuterol sulfate 90 mcg/actuation HFA aerosol inhaler 2 puff INHALATION Q6H PRN (Reason: shortness of breath or wheezing) carvedilol 3.125 mg tablet 3.125 mg PO BID Qty: 180 3RF Rx Instructions: must administer with a meal/food hydralazine 50 mg tablet 50 mg PO TID Qty: 270 1RF rosuvastatin [Crestor] 20 mg tablet 10 mg PO DAILY Qty: 30 12RF clopidogrel 75 mg tablet 75 mg PO DAILY Qty: 90 4RF Held losartan 50 mg tablet 50 mg PO DAILY Qty: 90 4RF Hold Instructions: Resume after 3 days Referrals / Follow Up: Channing Mckeon MD [Med Staff - Active Staff] - Within 1 Month Husam Khan Chi, MD [Primary Care Provider] - Within 2 Weeks Disposition Disposition (needs filled in before D/C Order can be placed): [facility] Charges/Coding Visit Charges Inpatient E&M: 65813 Disch Hosp >30min 08/08/25 1244 Cosigner Signature (if applicable): CC: Dr. Channing Mckeon MD; Dr. Pedro Banegas MD; Dr. Husam Khan MD~ Signed [facility]09-16-2025 Discharge summary [facility] Medical Records Department [address] [place] [address] Transfer to [facility] Care MR#: [id number] Acct: [id number] Name: ELIAS SHAH Rep #:[id number] : 1940 85 From: Pedro Soliman PCP: Dr. Husam Khan MD Status:ADM I N Certification of patient admission REQUIRED AT TIME OF ADMISSION. I CERTIFY THAT POST-HOSPITAL ECF SERVICES ARE REQUIRED TO BE GIVEN ON AN IN-PATIENT BASIS BECAUSE OF THE ABOVE NAMED PATIENT'S NEED FOR ASSISTED CARE ON A CONTINUING BASIS FOR THE CONDITION(S) FOR WHICH HE/SHE WAS RECEIVING IN-PATIENT HOSPITAL SERVICES PRIOR TO HIS/HER TRANSFER TO THE [facility]. 08/08/25 1239 Diet Diet Order/Speech Therapy: INPATIENT Hospital Diet / Speech Therapy Order(s) 08/04/25 17:49 Diet: Cardiac - Heart Healthy Food consistency:: Regular Liquid Consistency:: Regular/Thin Routine Orders/Code Status Suppository Type: Dulcolax 10mg Suppository Frequency: Daily PRN DC O2, CPAP, BIPAP needs Home O2 Discharge instructions: No Therapies Extremity Affected:: Bilateral Lower Physical Therapy: Eval and Treat Occupational Therapy: Eval and Treat Speech Therapy: Eval and Treat Problem/Diagnosis (1) Debility: Status: Acute Code(s): R53.81 - Other malaise (2) MAURO (acute kidney injury): Status: Acute Code(s): N17.9 - Acute kidney failure, unspecified (3) Leg pain, right: Status: Acute Code(s): M79.604 - Pain in right leg Plan 1. 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 Angioplasty and covered stent right popliteal artery to exclude pse udoaneurysm on 08/02/[address] Mckeon ? PT/OT ? His white count is elevated and most likely reactive leukocytosis after intervention which was done on 08/02/2025. No fever or hypotension or systemic symptoms of infection. Blood culture is ordered. Antibiotic not indicated yet ? Continue monitor for infectious etiologies if his white count does not completely resolve Mild swelling at the right popliteal region probably hematoma. It is tender Discussed with the vascular surgeon. His pain is same as prior to vascular stenting and it is expected. On Tylenol, oxycodone and muscle relaxant. Cold compression 08/07: Continue pain medication, physical therapy. 2. MAURO ? Baseline creatinine is around 1 and his creatinine on admission was 1.53 ? Received IV fluids and his creatinine did improve slightly to 1.31 08/06: Creatinine 1.0. MAURO resolved. Discontinue IV fluid. 3. Worsening acute on chronic anemia ? Baseline hemoglobin around 12-13, his hemoglobin on 07/27/2025 was 9.3 this is down from 11.4 on 05/04/2025 currently 8.6 ? 08/06: Hemoglobin decreased to 8.0. 08/07: Hemoglobin 8.0. 4. CAD status post stent/bioprosthetic AVR/paroxysmal A-fib/essential HTN/HLD ? Blood pressure is in normal range 121/86. Heart rate controlled ? Continue with his home blood pressure medications Monitor BP and adjust accordingly. ? Hold his losartan secondary to his MAURO 5. Anxiety/depression/mild cognitive impairment ? Continue with his home medications. Chronic disease 6. BPH with obstructive symptoms ? Chronic ? Continue with Flomax 7. GERD ? Continue with Pepcid DVT: Lovenox Laboratory Results 08/05/25 03:33: Iron 14 L, TIBC 149 L, Iron Saturation 9.4, Unsaturated IBC 135 L, Ferritin 521 H 08/06/25 03:57: WBC 17.1 H, RBC 3.24 L, Hgb 8.0 L, Hct 26.9 L, MCV 83.0, MCH 24.7 L, MCHC 29.7 L, RDW Std Deviation 49.5 H, RDW Coeff of Genesis 16.5 H, Plt Count 237, MPV 9.1, Immature Gran % (Auto) 2.500 H, Neut % (Auto) 78.4 H, Lymph % (Auto) 8.0 L, [place] % (Auto) 10.9 H, Eos % (Auto) 0.0, Baso % (Auto) 0.2, Absolute Neuts (auto) 13.4 H, Absolute Lymphs (auto) 1.37, Nucleated RBC % 0, Differential Comment SCANNED, Sodium 135, Potassium 4.7, Chloride 107, Carbon Dioxide 18.5 L, Anion Gap 10, BUN 24 H, Creatinine 1.00, Estim Creat Clear Calc 58.09, Est GFR (MDRD) Non-Af 73, BUN/Creatinine Ratio 24.3 H, Glucose 121 H, Calcium 8.0 Allergies/Procedures Done in Hospital Allergies atorvastatin Adverse Reaction (Intermediate, Verified 07/27/25 14:23) Myalgias Type of Care/Length of Stay Estimated LOS: Convalescent Care Less Than 30 days Type of Care Needed: Skilled Rehab Potential: Good Prognosis: Good Additional Orders/Day of Discharge Day of Discharge: 08/08/25 Dietary and Speech Recommendations Dietitian Recommendations/Changes: Continue Cardiac diet as ordered Continue to follow and monitor for changes in pt nutritional status Discharge Plan Admission Admit Date/Time: 08/05/25 12:13 Attending Provider: Pedro Banegas Primary Care Provider: Husam Khan Chi Consulting Providers: Morgan Dubon; Jim Adams Discharge Orders/Prescriptions Prescriptions: New acetaminophen 500 mg Tablet 1,000 mg PO Q8 Qty: 0 0RF Rx Instructions: Acetaminophen 1 g Q8 hourly for 1 week for pain and then every 8 hourly as needed for pain oxycodone 5 mg Tablet 2.5 mg PO Q6H PRN PRN (Reason: Pain Score 6-10) 3 Days Qty: 7 0RF sennosides-docusate sodium [Stimulant Laxative Plus] 8.6-50 mg Tablet 2 tab PO BID Qty: 0 0RF Continued famotidine [Pepcid] 40 mg tablet 40 mg PO DAILY citalopram 10 mg tablet 10 mg PO DAILY Patient Comments: Take 1 Tablet orally once per Day for 30 Days donepezil 10 mg tablet 10 mg PO DAILY Patient Comments: TAKE 1 TABLET BY MOUTH DAILY WITH SUPPER quetiapine 25 mg tablet 25 mg PO BID cyanocobalamin (vitamin B-12) 1,000 mcg capsule 1,000 mcg PO DAILY ascorbate calcium (vitamin C) 500 mg tablet 500 mg PO DAILY PreserVision AREDS-2 250-90-40-1 mg capsule 1 tab PO BID amlodipine 5 mg tablet 5 mg PO QHS Qty: 90 3RF tamsulosin 0.4 MG capsule 0.4 mg PO QHS albuterol sulfate 90 mcg/actuation HFA aerosol inhaler 2 puff INHALATION Q6H PRN (Reason: shortness of breath or wheezing) carvedilol 3.125 mg tablet 3.125 mg PO BID Qty: 180 3RF Rx Instructions: must administer with a meal/food hydralazine 50 mg tablet 50 mg PO TID Qty: 270 1RF rosuvastatin [Crestor] 20 mg tablet 10 mg PO DAILY Qty: 30 12RF clopidogrel 75 mg tablet 75 mg PO DAILY Qty: 90 4RF Held losartan 50 mg tablet 50 mg PO DAILY Qty: 90 4RF Hold Instructions: Resume after 3 days Referrals / Follow Up: Channing Mckeon MD [Med Staff - Active Staff] - Within 1 Month Husam Khan Chi, MD [Primary Care Provider] - Within 2 Weeks Disposition Disposition (needs filled in before D/C Order can be placed): [facility] Facility 08/08/25 1239 Cosigner Signature (if applicable): CC: Dr. Morgan Dubon DO; Dr. Jim Adams MD; Dr. Husam Khan MD ~ [facility]09-16-2025 [facility] Medical Records Department [address] [place] [id number] Discharge Summary 08/08/25 1239 MR#: [id number] Acct: [id number] Name: ELIAS SHAH Rep #: [id number] : 1940 85 From: Pedro Banegas MD PCP: Dr. Husam Khan MD Status:ADM IN [id number] Prov[facility] Date of Admission: 08/05/25 Date of Discharge: 08/08/25 Primary Care Physician: Dr. 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 Patient had pain preoperatively. 1. 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 Angioplasty and covered stent right popliteal artery to exclude pseudoaneurysm on 08/02/[address] Mckeon ??? PT/OT ??? His white count is elevated and most likely reactive leukocytosis after intervention which was done on 08/02/2025. No fever or hypotension or systemic symptoms of infection. Blood culture is ordered. Antibiotic not indicated yet ??? Continue monitor for infectious etiologies if his white count does not completely resolve Mild swelling at the right popliteal region probably hematoma. It is tender Discussed with the vascular surgeon. His pain is same as prior to vascular stenting and it is expected. On Tylenol, oxycodone and muscle relaxant. Cold compression 08/07: Continue pain medication, physical therapy. 08/08: Pain is controlled, states 7???8/10 intensity. Patient discharged on oxycodone. OARRS reviewed. Unintentional overdose risk 8T. Prescribed oxycodone 2.5-5 mg q. 4 hourly as needed for moderate to severe pain respectively. Total 7 tablets given. 2. MAURO ??? Baseline creatinine is around 1 and his creatinine on admission was 1.53 ??? Received IV fluids and his creatinine did improve slightly to 1.31 08/06: Creatinine 1.0. MAURO resolved. Discontinue IV fluid. 08/08: Can resume losartan after 3 days. 3. Worsening acute on chronic anemia ??? Baseline hemoglobin around 12-13, his hemoglobin on 07/27/2025 was 9.3 this is down from 11.4 on 05/04/2025 currently 8.6 ??? 08/06: Hemoglobin decreased to 8.0. 08/07: Hemoglobin 8.0. 08/08: Hemoglobin improvement 8.7/27%. On baby aspirin and Plavix to continue. 4. CAD status post stent/bioprosthetic AVR/paroxysmal A-fib/essential HTN/HLD ??? Blood pressure is in normal range 121/86. Heart rate controlled ??? Continue with his home blood pressure medications Monitor BP and adjust accordingly. 5. Anxiety/depression/mild cognitive impairment ??? Continue with his home medications. Chronic disease 6. BPH with obstructive symptoms ??? Chronic ??? Continue with Flomax 7. GERD ??? Continue with Pepcid DVT: Lovenox Discharge medication reconciliation done. Discharge follow-up instructions completed. Discharge process discussed with the patient and all questions were answered to patient's satisfaction. Follow with PCP in 1 to 2 weeks Total time spent, exact 35 minutes on discharge meds reconciliation, examination, coordination of care with nurses and ancillary staff, review of imaging and blood test and discussion with the patient on follow-up instructions. Laboratory Results 08/05/25 03:33: Iron 14 L, TIBC 149 L, Iron Saturation 9.4, Unsaturated IBC 135 L, Ferritin 521 H 08/06/25 03:57: WBC 17.1 H, RBC 3.24 L, Hgb 8.0 L, Hct 26.9 L, MCV 83.0, MCH 24.7 L, MCHC 29.7 L, R DW Std Deviation 49.5 H, RDW Coeff of Genesis 16.5 H, Plt Count 237, MPV 9.1, Immature Gran % (Auto) 2.500 H, Neut % (Auto) 78.4 H, Lymph % (Auto) 8.0 L, [place] % (Auto) 10.9 H, Eos % (Auto) 0.0, Baso % (Auto) 0.2, Absolute Neuts (auto) 13.4 H, Absolute Lymphs (auto) 1.37, Nucleated RBC % 0, Differential Comment SCANNED, Sodium 135, Potassium 4.7, Chloride 107, Carbon Dioxide 18.5 L, Anion Gap 10, BUN 24 H, Creatinine 1.00, Estim Creat Clear Calc 58.09, Est GFR (MDRD) Non-Af 73, B UN/Creatinine Ratio 24.3 H, Glucose 121 H, Calcium 8.0 Medications at Discharge Home Medications tamsulosin 0.4 mg capsule 0.4 mg PO QHS urine flow 08/20/19 famotidine 40 mg tablet (Pepcid) 40 mg PO DAILY 08/10/20 citalopram 10 mg tablet 10 mg PO DAILY 02/18/21 donepezil 10 mg tablet 10 mg PO DAILY 02/18/21 quetiapine 25 mg tablet 25 mg PO BID 02/18/21 cyanocobalamin (vitamin B-12) 1,000 mcg capsule 1,000 mcg PO DAILY (more content not included)...[facility]09-15-2025 Progress note Author Pedro Banegas [facility] Note Date/Time August 07, 2025 2:01pm [facility] Medical Records Department [address] [place] [address] Progress Note - Hospitalist 08/07/25 1358 MR#: [id number] Acct: [id number] Name: ELIAS SHAH Rep #:[id number] : 1940 85 From: Pedro Soliman PCP: Dr. Husam Khan MD Status:ADM I N Location: [place] [address] Reason for Visit Chief Complaint: Weakness and difficulty with ambulation Objective Data Objective Data Vital Signs: Vital Signs Temp Pulse Resp BP Pulse Ox O2 Del Method 97.3 F L 96 17 124/74 H 98 Room Air 08/07/25 08:08 08/07/25 13:43 08/07/25 08:08 08/07/25 13:43 08/07/25 08:08 08/07/25 13:46 Oxygen Delivery Method Room Air Weight: 201 lb 2.066 oz Body Mass Index (BMI) 29.7 Intake & Output: Intake and Output for Last 24 Hours 08/05/25 08/06/25 08/07/25 23:59 23:59 23:59 Intake Total 4350 / 4350 3200 / 3200 Output Total 1275 / 1275 1550 / 1950 650 / 650 Balance 3075 / 3075 1650 / 1250 -650 / -650 Lab / Micro Data 08/06/25 03:57 08/06/25 03:57 Rhythm Strip Rhythm Strip: A-fib Rate: 95 Ectopy: None Physical Exam Narrative right lower extremity is severely limited due to pain Patient complain of pain, severe 10/10 over popliteal fossa states no differencefrom yesterday. Pain is same before the popliteal stenting for popliteal pseudoaneurysm. Physical exam General: Alert, Oriented x3, Cooperative. BMI 29.7 kg/m?. HEENT: Atraumatic, PERRLA, EOMI, Normocephalic. Oral: No Gingival or Mucosal Lesions/ Ulcerations Neck: Supple, No JVD, Negative Carotid Bruits Chest wall/Lungs: Air entry diminished in bilateral lung bases. No crepitation/rhonchi Cardiovascular: Regular rate and rhythm, Normal S1,S2, No M/G/R. Pulses palpable lower bilateral popliteal, PT and dorsalis pedis similar in volume. Some knot feeling, right popliteal artery. Abdomen: Bowel Sounds Present, Soft, Non Tender, Non-Distended : No dysuria. No renal angle tenderness. No suprapubic tenderness. Extremities: No edema, Capillary Refill Less than 3 Seconds Skin: No rashes, No breakdown. Palpable swelling of right popliteal region. Musculoskeletal: No Tenderness to Palpation of Joints or Extremities Neurological: Cranial nerves II-XII grossly intact, DTR 2+/4. No acute focal neurological deficit. Psych/Mental Status: Normal Affect, Appropriate. Assessment & Plan Assessment/Plan (1) Debility: (2) MAURO (acute kidney injury): (3) Leg pain, right: PLAN: Plan 1. 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 Angioplasty and covered stent right popliteal artery to exclude pseudoaneurysm on 08/02/[address] Mckeon ? PT/OT ? His white count is elevated and most likely reactive leukocytosis after intervention which was done on 08/02/2025. No fever or hypotension or systemic symptoms of infection. Blood culture is ordered. Antibiotic not indicated yet ? Continue monitor for infectious etiologies if his white count does not completely resolve Mild swelling at the right popliteal region probably hematoma. It is tender Discussed with the vascular surgeon. His pain is same as prior to vascular stenting and it is expected. On Tylenol, oxycodone and muscle relaxant. Cold compression 08/07: Continue pain medication, physical therapy. 2. MAURO ? Baseline creatinine is around 1 and his creatinine on admission was 1.53 ? Received IV fluids and his creatinine did improve slightly to 1.31 08/06: Creatinine 1.0. MAURO resolved. Discontinue IV fluid. 3. Worsening acute on chronic anemia ? Baseline hemoglobin around 12-13, his hemoglobin on 07/27/2025 was 9.3 this is down from 11.4 on 05/04/2025 currently 8.6 ? 08/06: Hemoglobin decreased to 8.0. 08/07: Hemoglobin 8.0. 4. CAD status post stent/bioprosthetic AVR/paroxysmal A-fib/essential HTN/HLD ? Blood pressure is in normal range 121/86. Heart rate controlled ? Continue with his home blood pressure medications Monitor BP and adjust accordingly. ? Hold his losartan secondary to his MAURO 5. Anxiety/depression/mild cognitive impairment ? Continue with his home medications. Chronic disease 6. BPH with obstructive symptoms ? Chronic ? Continue with Flomax 7. GERD ? Continue with Pepcid DVT: Lovenox Laboratory Results 08/05/25 03:33: Iron 14 L, TIBC 149 L, Iron Saturation 9.4, Unsaturated IBC 135 L, Ferritin 521 H 08/06/25 03:57: WBC 17.1 H, RBC 3.24 L, Hgb 8.0 L, Hct 26.9 L, MCV 83.0, MCH 24.7 L, MCHC 29.7 L, RDW Std Deviation 49.5 H, RDW Coeff of Genesis 16.5 H, Plt Count 237, MPV 9.1, Immature Gran % (Auto) 2.500 H, Neut % (Auto) 78.4 H, Lymph % (Auto) 8.0 L, [place] % (Auto) 10.9 H, Eos % (Auto) 0.0, Baso % (Auto) 0.2, Absolute Neuts (auto) 13.4 H, Absolute Lymphs (auto) 1.37, Nucleated RBC % 0, Differential Comment SCANNED, Sodium 135, Potassium 4.7, Chloride 107, Carbon Dioxide 18.5 L, Anion Gap 10, BUN 24 H, Creatinine 1.00, Estim Creat Clear Calc 58.09, Est GFR (MDRD) Non-Af 73, BUN/Creatinine Ratio 24.3 H, Glucose 121 H, Calcium 8.0 Charges/Coding Visit Charges Inpatient E&M: 39630 Subs Hosp L2 08/07/25 1401 <Electronically signed by Pedro Banegas MD> Cosigner Signature (if applicable): CC: ~ Signed [facility] Work Phone: [phone] 659-907409-15-2025 Progress note [facility] Medical Records Department [address] [place] [address] Progress Note - Hospitalist 08/07/25 1358 MR#: [id number] Acct: [id number] Name: ELIAS SHAH Rep #:[id number] : 1940 85 From: Pedro Soliman PCP: Dr. Husam Khan MD Status:ADM I N Location: [place] [address] Reason for Visit Chief Complaint: Weakness and difficulty with ambulation Objective Data Objective Data Vital Signs: Vital Signs Temp Pulse Resp BP Pulse Ox O2 Del Method 97.3 F L 96 17 124/74 H 98 Room Air 08/07/25 08:08 08/07/25 13:43 08/07/25 08:08 08/07/25 13:43 08/07/25 08:08 08/07/25 13:46 Oxygen Delivery Method Room Air Weight: 201 lb 2.066 oz Body Mass Index (BMI) 29.7 Intake & Output: Intake and Output for Last 24 Hours 08/05/25 08/06/25 08/07/25 23:59 23:59 23:59 Intake Total 4350 / 4350 3200 / 3200 Output Total 1275 / 1275 1550 / 1950 650 / 650 Balance 3075 / 3075 1650 / 1250 -650 / -650 Lab / Micro Data 08/06/25 03:57 08/06/25 03:57 Rhythm Strip Rhythm Strip: A-fib Rate: 95 Ectopy: None Physical Exam Narrative right lower extremity is severely limited due to pain Patient complain of pain, severe 10/10 over popliteal fossa states no differencefrom yesterday. Pain is same before the popliteal stenting for popliteal pseudoaneurysm. Physical exam General: Alert, Oriented x3, Cooperative. BMI 29.7 kg/m?. HEENT: Atraumatic, PERRLA, EOMI, Normocephalic. Oral: No Gingival or Mucosal Lesions/ Ulcerations Neck: Supple, No JVD, Negative Carotid Bruits Chest wall/Lungs: Air entry diminished in bilateral lung bases. No crepitation/rhonchi Cardiovascular: Regular rate and rhythm, Normal S1,S2, No M/G/R. Pulses palpable lower bilateral popliteal, PT and dorsalis pedis similar in volume. Some knot feeling, right popliteal artery. Abdomen: Bowel Sounds Present, Soft, Non Tender, Non-Distended : No dysuria. No renal angle tenderness. No suprapubic tenderness. Extremities: No edema, Capillary Refill Less than 3 Seconds Skin: No rashes, No breakdown. Palpable swelling of right popliteal region. Musculoskeletal: No Tenderness to Palpation of Joints or Extremities Neurological: Cranial nerves II-XII grossly intact, DTR 2+/4. No acute focal neurological deficit. Psych/Mental Status: Normal Affect, Appropriate. Assessment & Plan Assessment/Plan (1) Debility: (2) MAURO (acute kidney injury): (3) Leg pain, right: PLAN: Plan 1. 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 Angioplasty and covered stent right popliteal artery to exclude pse udoaneurysm on 08/02/[address] Mckeon ? PT/OT ? His white count is elevated and most likely reactive leukocytosis after intervention which was done on 08/02/2025. No fever or hypotension or systemic symptoms of infection. Blood culture is ordered. Antibiotic not indicated yet ? Continue monitor for infectious etiologies if his white count does not completely resolve Mild swelling at the right popliteal region probably hematoma. It is tender Discussed with the vascular surgeon. His pain is same as prior to vascular stenting and it is expected. On Tylenol, oxycodone and muscle relaxant. Cold compression 08/07: Continue pain medication, physical therapy. 2. MAURO ? Baseline creatinine is around 1 and his creatinine on admission was 1.53 ? Received IV fluids and his creatinine did improve slightly to 1.31 08/06: Creatinine 1.0. MAURO resolved. Discontinue IV fluid. 3. Worsening acute on chronic anemia ? Baseline hemoglobin around 12-13, his hemoglobin on 07/27/2025 was 9.3 this is down from 11.4 on 05/04/2025 currently 8.6 ? 08/06: Hemoglobin decreased to 8.0. 08/07: Hemoglobin 8.0. 4. CAD status post stent/bioprosthetic AVR/paroxysmal A-fib/essential HTN/HLD ? Blood pressure is in normal range 121/86. Heart rate controlled ? Continue with his home blood pressure medications Monitor BP and adjust accordingly. ? Hold his losartan secondary to his MAURO 5. Anxiety/depression/mild cognitive impairment ? Continue with his home medications. Chronic disease 6. BPH with obstructive symptoms ? Chronic ? Continue with Flomax 7. GERD ? Continue with Pepcid DVT: Lovenox Laboratory Results 08/05/25 03:33: Iron 14 L, TIBC 149 L, Iron Saturation 9.4, Unsaturated IBC 135 L, Ferritin 521 H 08/06/25 03:57: WBC 17.1 H, RBC 3.24 L, Hgb 8.0 L, Hct 26.9 L, MCV 83.0, MCH 24.7 L, MCHC 29.7 L, RDW Std Deviation 49.5 H, RDW Coeff of Genesis 16.5 H, Plt Count 237, MPV 9.1, Immature Gran % (Auto) 2.500 H, Neut % (Auto) 78.4 H, Lymph % (Auto) 8.0 L, [place] % (Auto) 10.9 H, Eos % (Auto) 0.0, Baso % (Auto) 0.2, Absolute Neuts (auto) 13.4 H, Absolute Lymphs (auto) 1.37, Nucleated RBC % 0, Differential Comment SCANNED, Sodium 135, Potassium 4.7, Chloride 107, Carbon Dioxide 18.5 L, Anion Gap 10, BUN 24 H, Creatinine 1.00, Estim Creat Clear Calc 58.09, Est GFR (MDRD) Non-Af 73, BUN/Creatinine Ratio 24.3 H, Glucose 121 H, Calcium 8.0 Charges/Coding Visit Charges Inpatient E&M: 43829 Subs Hosp L2 08/07/25 1401 Cosigner Signature (if applicable): CC: ~ Signed [facility]09-14-2025 Progress note Author Pedro Banegas [facility] Note Date/Time August 06, 2025 11:39am [facility] Medical Records Department [address] [place] [address] Progress Note - Hospitalist 08/06/25 0739 MR#: [id number] Acct: [id number] Name: ELIAS SHAH Rep #:[id number] : 1940 85 From: Pedro Soliman PCP: Dr. Husam Khan MD Status:ADM I N Location: [place] [address] Reason for Visit Chief Complaint: Weakness and difficulty with ambulation Objective Data Objective Data Vital Signs: Vital Signs Temp Pulse Resp BP Pulse Ox O2 Del Method 98.1 F 83 20 H 152/81 H 97 Room Air 08/06/25 06:31 08/06/25 06:39 08/06/25 06:31 08/06/25 06:39 08/06/25 06:31 08/06/25 06:31 Oxygen Delivery Method Room Air Weight: 201 lb 2.066 oz Body Mass Index (BMI) 29.7 Intake & Output: Intake and Output for Last 24 Hours 08/04/25 08/05/25 08/06/25 23:59 23:59 23:59 Intake Total 1107.5 / 1107.5 4350 / 4350 1500 / 1500 Output Total 200 / 450 1275 / 1275 1200 / 1200 Balance 907.5 / 657.5 3075 / 3075 300 / 300 Lab / Micro Data 08/06/25 03:57 08/06/25 03:57 Labs: Laboratory Results - last 24 hr 08/05/25 03:33: Iron 14 L, TIBC 149 L, Iron Saturation 9.4, Unsaturated IBC 135 L, Ferritin 521 H 08/06/25 03:57: WBC 17.1 H, RBC 3.24 L, Hgb 8.0 L, Hct 26.9 L, MCV 83.0, MCH 24.7 L, MCHC 29.7 L, RDW Std Deviation 49.5 H, RDW Coeff of Genesis 16.5 H, Plt Count 237, MPV 9.1, Immature Gran % (Auto) 2.500 H, Neut % (Auto) 78.4 H, Lymph % (Auto) 8.0 L, [place] % (Auto) 10.9 H, Eos % (Auto) 0.0, Baso % (Auto) 0.2, Absolute Neuts (auto) 13.4 H, Absolute Lymphs (auto) 1.37, Nucleated RBC % 0, Differential Comment SCANNED, Sodium 135, Potassium 4.7, Chloride 107, Carbon Dioxide 18.5 L, Anion Gap 10, BUN 24 H, Creatinine 1.00, Estim Creat Clear Calc 58.09, Est GFR (MDRD) Non-Af 73, BUN/Creatinine Ratio 24.3 H, Glucose 121 H, Calcium 8.0 Rhythm Strip Rhythm Strip: A-fib Rate: 95 Ectopy: None Physical Exam Narrative right lower extremity is severely limited due to pain Patient complain of pain, severe 10/10 over popliteal fossa. Pain is same before the popliteal stenting for popliteal pseudoaneurysm. Discussed with vascular surgeon Dr. Channing Mckeon. No fever. Denies chest pain or shortness of breath. Physical exam General: Alert, Oriented x3, Cooperative. BMI 29.7 kg/m?. HEENT: Atraumatic, PERRLA, EOMI, Normocephalic. Oral: No Gingival or Mucosal Lesions/ Ulcerations Neck: Supple, No JVD, Negative Carotid Bruits Chest wall/Lungs: Air entry diminished in bilateral lung bases. No crepitation/rhonchi Cardiovascular: Regular rate and rhythm, Normal S1,S2, No M/G/R. Pulses palpable lower bilateral popliteal, PT and dorsalis pedis similar in volume. Abdomen: Bowel Sounds Present, Soft, Non Tender, Non-Distended : No dysuria. No renal angle tenderness. No suprapubic tenderness. Extremities: No edema, Capillary Refill Less than 3 Seconds Skin: No rashes, No breakdown. Palpable swelling of right popliteal region. Musculoskeletal: No Tenderness to Palpation of Joints or Extremities Neurological: Cranial nerves II-XII grossly intact, DTR 2+/4. No acute focal neurological deficit. Psych/Mental Status: Normal Affect, Appropriate. Assessment & Plan Assessment/Plan (1) Debility: (2) MAURO (acute kidney injury): (3) Leg pain, right: PLAN: Plan 1. 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 Angioplasty and covered stent right popliteal artery to exclude pseudoaneurysm on 08/02/[address] Mckeon ? PT/OT ? His white count is elevated and most likely reactive leukocytosis after intervention which was done on 08/02/2025. No fever or hypotension or systemic symptoms of infection. Blood culture is ordered. Antibiotic not indicated yet ? Continue monitor for infectious etiologies if his white count does not completely resolve Mild swelling at the right popliteal region probably hematoma. It is tender Discussed with the vascular surgeon. His pain is same as prior to vascular stenting and it is expected. On Tylenol, oxycodone and muscle relaxant. Cold compression 2. MAURO ? Baseline creatinine is around 1 and his creatinine on admission was 1.53 ? Received IV fluids and his creatinine did improve slightly to 1.31 08/06: Creatinine 1.0. MAURO resolved. Discontinue IV fluid. 3. Worsening acute on chronic anemia ? Baseline hemoglobin around 12-13, his hemoglobin on 07/27/2025 was 9.3 this is down from 11.4 on 05/04/2025 currently 8.6 ? 08/06: Hemoglobin decreased to 8.0. 4. CAD status post stent/bioprosthetic AVR/paroxysmal A-fib/essential HTN/HLD ? Blood pressure is in normal range 121/86. Heart rate controlled ? Continue with his home blood pressure medications Monitor BP and adjust accordingly. ? Hold his losartan secondary to his MAURO 5. Anxiety/depression/mild cognitive impairment ? Continue with his home medications. Chronic disease 6. BPH with obstructive symptoms ? Chronic ? Continue with Flomax 7. GERD ? Continue with Pepcid DVT: Lovenox Laboratory Results 08/05/25 03:33: Iron 14 L, TIBC 149 L, Iron Saturation 9.4, Unsaturated IBC 135 L, Ferritin 521 H 08/06/25 03:57: WBC 17.1 H, RBC 3.24 L, Hgb 8.0 L, Hct 26.9 L, MCV 83.0, MCH 24.7 L, MCHC 29.7 L, RDW Std Deviation 49.5 H, RDW Coeff of Genesis 16.5 H, Plt Count 237, MPV 9.1, Immature Gran % (Auto) 2.500 H, Neut % (Auto) 78.4 H, Lymph % (Auto) 8.0 L, [place] % (Auto) 10.9 H, Eos % (Auto) 0.0, Baso % (Auto) 0.2, Absolute Neuts (auto) 13.4 H, Absolute Lymphs (auto) 1.37, Nucleated RBC % 0, Differential Comment SCANNED, Sodium 135, Potassium 4.7, Chloride 107, Carbon Dioxide 18.5 L, Anion Gap 10, BUN 24 H, Creatinine 1.00, Estim Creat Clear Calc 58.09, Est GFR (MDRD) Non-Af 73, BUN/Creatinine Ratio 24.3 H, Glucose 121 H, Calcium 8.0 Charges/Coding Visit Charges Inpatient E&M: 06522 Subs Hosp L2 08/06/25 1139 <Electronically signed by Pedro Banegas MD> Cosigner Signature (if applicable): CC: ~ Signed [facility] Work Phone: [phone] 576-209909-14-2025 Progress note [facility] Medical Records Department [address] [place] [id number] Progress Note - Hospitalist 08/06/25 0739 MR#: [id number] Acct: [id number] Name: ELIAS SHAH Rep #:[id number] : 1940 85 From: Pedro Soliman PCP: Dr. Husam Khan MD Status:ADM I N Location: [place] [address] Reason for Visit Chief Complaint: Weakness and difficulty with ambulation Objective Data Objective Data Vital Signs: Vital Signs Temp Pulse Resp BP Pulse Ox O2 Del Method 98.1 F 83 20 H 152/81 H 97 Room Air 08/06/25 06:31 08/06/25 06:39 08/06/25 06:31 08/06/25 06:39 08/06/25 06:31 08/06/25 06:31 Oxygen Delivery Method Room Air Weight: 201 lb 2.066 oz Body Mass Index (BMI) 29.7 Intake & Output: Intake and Output for Last 24 Hours 08/04/25 08/05/25 08/06/25 23:59 23:59 23:59 Intake Total 1107.5 / 1107.5 4350 / 4350 1500 / 1500 Output Total 200 / 450 1275 / 1275 1200 / 1200 Balance 907.5 / 657.5 3075 / 3075 300 / 300 Lab / Micro Data 08/06/25 03:57 08/06/25 03:57 Labs: Laboratory Results - last 24 hr 08/05/25 03:33: Iron 14 L, TIBC 149 L, Iron Saturation 9.4, Unsaturated IBC 135 L, Ferritin 521 H 08/06/25 03:57: WBC 17.1 H, RBC 3.24 L, Hgb 8.0 L, Hct 26.9 L, MCV 83.0, MCH 24.7 L, MCHC 29.7 L, RDW Std Deviation 49.5 H, RDW Coeff of Genesis 16.5 H, Plt Count 237, MPV 9.1, Immature Gran % (Auto) 2.500 H, Neut % (Auto) 78.4 H, Lymph % (Auto) 8.0 L, [place] % (Auto) 10.9 H, Eos % (Auto) 0.0, Baso % (Auto) 0.2, Absolute Neuts (auto) 13.4 H, Absolute Lymphs (auto) 1.37, Nucleated RBC % 0, Differential Comment SCANNED, Sodium 135, Potassium 4.7, Chloride 107, Carbon Dioxide 18.5 L, Anion Gap 10, BUN 24 H, Creatinine 1.00, Estim Creat Clear Calc 58.09, Est GFR (MDRD) Non-Af 73, BUN/Creatinine Ratio 24.3 H, Glucose 121 H, Calcium 8.0 Rhythm Strip Rhythm Strip: A-fib Rate: 95 Ectopy: None Physical Exam Narrative right lower extremity is severely limited due to pain Patient complain of pain, severe 10/10 over popliteal fossa. Pain is same before the popliteal stenting for popliteal pseudoaneurysm. Discussed with vascular surgeon Dr. Channing Mckeon. No fever. Denieschest pain or shortness of breath. Physical exam General: Alert, Oriented x3, Cooperative. BMI 29.7 kg/m?. HEENT: Atraumatic, PERRLA, EOMI, Normocephalic. Oral: No Gingival or Mucosal Lesions/ Ulcerations Neck: Supple, No JVD, Negative Carotid Bruits Chest wall/Lungs: Air entry diminished in bilateral lung bases. No crepitation/rhonchi Cardiovascular: Regular rate and rhythm, Normal S1,S2, No M/G/R. Pulses palpable lower bilateral popliteal, PT and dorsalis pedis similar in volume. Abdomen: Bowel Sounds Present, Soft, Non Tender, Non-Distended : No dysuria. No renal angle tenderness. No suprapubic tenderness. Extremities: No edema, Capillary Refill Less than 3 Seconds Skin: No rashes, No breakdown. Palpable swelling of right popliteal region. Musculoskeletal: No Tenderness to Palpation of Joints or Extremities Neurological: Cranial nerves II-XII grossly intact, DTR 2+/4. No acute focal neurological deficit. Psych/Mental Status: Normal Affect, Appropriate. Assessment & Plan Assessment/Plan (1) Debility: (2) MAURO (acute kidney injury): (3) Leg pain, right: PLAN: Plan 1. 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 Angioplasty and covered stent right popliteal artery to exclude pse udoaneurysm on 08/02/[address] Mckeon ? PT/OT ? His white count is elevated and most likely reactive leukocytosis after intervention which was done on 08/02/2025. No fever or hypotension or systemic symptoms of infection. Blood culture is ordered. Antibiotic not indicated yet ? Continue monitor for infectious etiologies if his white count does not completely resolve Mild swelling at the right popliteal region probably hematoma. It is tender Discussed with the vascular surgeon. His pain is same as prior to vascular stenting and it is expected. On Tylenol, oxycodone and muscle relaxant. Cold compression 2. MAURO ? Baseline creatinine is around 1 and his creatinine on admission was 1.53 ? Received IV fluids and his creatinine did improve slightly to 1.31 08/06: Creatinine 1.0. MAURO resolved. Discontinue IV fluid. 3. Worsening acute on chronic anemia ? Baseline hemoglobin around 12-13, his hemoglobin on 07/27/2025 was 9.3 this is down from 11.4 on 05/04/2025 currently 8.6 ? 08/06: Hemoglobin decreased to 8.0. 4. CAD status post stent/bioprosthetic AVR/paroxysmal A-fib/essential HTN/HLD ? Blood pressure is in normal range 121/86. Heart rate controlled ? Continue with his home blood pressure medications Monitor BP and adjust accordingly. ? Hold his losartan secondary to his MAURO 5. Anxiety/depression/mild cognitive impairment ? Continue with his home medications. Chronic disease 6. BPH with obstructive symptoms ? Chronic ? Continue with Flomax 7. GERD ? Continue with Pepcid DVT: Lovenox Laboratory Results 08/05/25 03:33: Iron 14 L, TIBC 149 L, Iron Saturation 9.4, Unsaturated IBC 135 L, Ferritin 521 H 08/06/25 03:57: WBC 17.1 H, RBC 3.24 L, Hgb 8.0 L, Hct 26.9 L, MCV 83.0, MCH 24.7 L, MCHC 29.7 L, RDW Std Deviation 49.5 H, RDW Coeff of Genesis 16.5 H, Plt Count 237, MPV 9.1, Immature Gran % (Auto) 2.500 H, Neut % (Auto) 78.4 H, Lymph % (Auto) 8.0 L, [place] % (Auto) 10.9 H, Eos % (Auto) 0.0, Baso % (Auto) 0.2, Absolute Neuts (auto) 13.4 H, Absolute Lymphs (auto) 1.37, Nucleated RBC % 0, Differential Comment SCANNED, Sodium 135, Potassium 4.7, Chloride 107, Carbon Dioxide 18.5 L, Anion Gap 10, BUN 24 H, Creatinine 1.00, Estim Creat Clear Calc 58.09, Est GFR (MDRD) Non-Af 73, BUN/Creatinine Ratio 24.3 H, Glucose 121 H, Calcium 8.0 Charges/Coding Visit Charges Inpatient E&M: 62579 Subs Hosp L2 08/06/25 1139 Cosigner Signature (if applicable): CC: ~ Signed [facility]09-13-2025 Progress note Author Jim Adams [facility] Note Date/Time August 05, 2025 3:37pm [facility] Medical Records Department [address] [place] [id number] Progress Note - Hospitalist 08/05/25 1505 MR#: [id number] Acct: [id number] Name: ELIAS SHAH Rep #:[id number] : 1940 85 From: Jim arzate MD PCP: Dr. Husam Khan MD Status:ADM I N Location: [facility] [id number] Subjective Subjective Still significant pain behind his right knee with limited mobility Objective Data Objective Data Vital Signs: Vital Signs Temp Pulse Resp BP Pulse Ox O2 Del Method 98.6 F 110 H 18 118/71 96 Room Air 08/05/25 10:01 08/05/25 10:01 08/05/25 10:01 08/05/25 10:01 08/05/25 10:01 08/05/25 11:45 Oxygen Delivery Method Room Air Weight: 201 lb 2.066 oz Body Mass Index (BMI) 29.7 Intake & Output: Intake and Output for Last 24 Hours 08/04/25 08/05/25 08/06/25 03:59 03:59 03:59 Intake Total 2107.5 / 2107.5 1750 / 1750 Output Total 450 / 450 1025 / 1025 Balance 1657.5 / 1657.5 725 / 725 Lab / Micro Data 08/05/25 03:33 08/05/25 03:33 Labs: Laboratory Results - last 24 hr 08/04/25 16:07: Urine Color Yellow, Urine Clarity Sl. Cloudy, Urine pH 5.0, Ur Specific [place] 1.020, Urine Protein 30 H, Urine Glucose (UA) Normal, Urine Ketones Negative, Urine Occult Blood Negative, Urine Nitrite Negative, Urine Bilirubin Negative, Urine Urobilinogen Normal, Ur Leukocyte Esterase Negative, Urine RBC 0-5 SEEN, Urine WBC 0-5 SEEN, Ur Squamous Epith Cells 0-5 SEEN, Urine Bacteria 0 SEEN, Hyaline Casts 0-5 SEEN, Fine Granular Casts 0-5 SEEN, Urine Mucus 0 SEEN 08/04/25 16:38: Lactic Acid 1.4 08/05/25 03:33: WBC 13.8 H, RBC 3.32 L, Hgb 8.6 L, Hct 27.9 L, MCV 84.0, MCH 25.9 L, MCHC 30.8 L, RDW Std Deviation 49.7 H, RDW Coeff of Genesis 16.8 H, Plt Count 248, MPV 9.0, Sodium 138, Potassium 4.6, Chloride 106, Carbon Dioxide 21.1, Anion Gap 11, BUN 35 H, Creatinine 1.31 H, Estim Creat Clear Calc 44.34 L,Est GFR (MDRD) Non-Af 53 L, BUN/Creatinine Ratio 26.3 H, Glucose 114 H, Calcium 7.9 Rhythm Strip Rhythm Strip: A-fib Rate: 95 Ectopy: None Physical Exam Narrative General: Alert, Oriented x3, Cooperative, No apparent distress HEENT: Atraumatic, PERRLA, EOMI, Normocephalic Oral: Moist Mucosa Neck: Supple, No JVD Lungs: Diminished, Normal air movement, No rhonchi, No wheeze, No rales Cardiovascular: Regular rate, Regular Rhythm, Normal S1, Normal S2, No murmurs Abdomen: Soft, Non Tender, Non-Distended, No Hepato-splenomegaly Extremities: No edema, Capillary Refill Less than 3 Seconds Skin: No rashes, No breakdown Musculoskeletal: Tenderness to palpation behind his right knee Neurological: No focal neurological deficits, moves all of his extremities though right lower extremity is severely limited due to pain Psych/Mental Status: Normal Affect, Appropriate Assessment & Plan Assessment/Plan (1) Debility: (2) MAURO (acute kidney injury): (3) Leg pain, right: PLAN: Plan 1. Right lower extremity pain after stent placement for right popliteal pseudoaneurysm with hematoma with an inability complete ADLs and worsening weakness ? PT/OT ? His white count is elevated and it is possible to still be a reactive leukocytosis after intervention which was done on 08/02/2025 ? Will monitor for infectious etiologies if his white count does not completely resolve ? His groin site for the stent placement looks uninfected ? Will consult case management for placement given the significant debility withhis leukocytosis and dehydration will need discharge planning 2. MAURO ? Baseline creatinine is around 1 and his creatinine on admission was 1.53 ? Received IV fluids and his creatinine did improve slightly to 1.31 ? Will continue to monitor 3. Worsening acute on chronic anemia ? Baseline hemoglobin around 12-13, his hemoglobin on 07/27/2025 was 9.3 this is down from 11.4 on 05/04/2025 currently 8.6 ? Will obtain iron studies 4. CAD status post stent/bioprosthetic AVR/paroxysmal A-fib/essential HTN/HLD ? Blood pressure stable ? Continue with his home blood pressure medications ? Will monitor make adjustments as necessary ? Hold his losartan secondary to his MAURO 5. Anxiety/depression/mild cognitive impairment ? Stable ? Continue with his home medications 6. BPH with obstructive symptoms ? Stable ? Continue with Flomax 7. GERD ? Stable ? Continue with Pepcid DVT: Lovenox Charges/Coding Visit Charges Inpatient E&M: 62786 Subs Hosp L2 08/05/25 0981 <Electronically signed by Jim Adams MD> Cosigner Signature (if applicable): CC: ~ Signed [facility] Work Phone: 1(188) 115-616009-13-2025 Progress note [facility] Medical Records Department [address] [place] [address] Progress Note - Hospitalist 08/05/25 1505 MR#: [id number] Acct: [id number] Name: ELIAS SHAH Rep #:[id number] : 1940 85 From: Jim arzate MD PCP: Dr. Husam Khan MD Status:ADM I N Location: [facility] [id number] Subjective Subjective Still significant pain behind his right knee with limited mobility Objective Data Objective Data Vital Signs: Vital Signs Temp Pulse Resp BP Pulse Ox O2 Del Method 98.6 F 110 H 18 118/71 96 Room Air 08/05/25 10:01 08/05/25 10:01 08/05/25 10:01 08/05/25 10:01 08/05/25 10:01 08/05/25 11:45 Oxygen Delivery Method Room Air Weight: 201 lb 2.066 oz Body Mass Index (BMI) 29.7 Intake & Output: Intake and Output for Last 24 Hours 08/04/25 08/05/25 08/06/25 03:59 03:59 03:59 Intake Total 2107.5 / 2107.5 1750 / 1750 Output Total 450 / 450 1025 / 1025 Balance 1657.5 / 1657.5 725 / 725 Lab / Micro Data 08/05/25 03:33 08/05/25 03:33 Labs: Laboratory Results - last 24 hr 08/04/25 16:07: Urine Color Yellow, Urine Clarity Sl. Cloudy, Urine pH 5.0, Ur Specific [place] 1.020, Urine Protein 30 H, Urine Glucose (UA) Normal, Urine Ketones Negative, Urine Occult Blood Negative, Urine Nitrite Negative, Urine Bilirubin Negative, Urine Urobilinogen Normal, Ur Leukocyte Esterase Negative, Urine RBC 0-5 SEEN, Urine WBC 0-5 SEEN, Ur Squamous Epith Cells 0-5 SEEN, Urine Bacteria 0 SEEN, Hyaline Casts 0-5 SEEN, Fine Granular Casts 0-5 SEEN, Urine Mucus 0 SEEN 08/04/25 16:38: Lactic Acid 1.4 08/05/25 03:33: WBC 13.8 H, RBC 3.32 L, Hgb 8.6 L, Hct 27.9 L, MCV 84.0, MCH 25.9 L, MCHC 30.8 L, RDW Std Deviation 49.7 H, RDW Coeff of Genesis 16.8 H, Plt Count 248, MPV 9.0, Sodium 138, Potassium 4.6,Chloride 106, Carbon Dioxide 21.1, Anion Gap 11, BUN 35 H, Creatinine 1.31 H, Estim Creat Clear Calc 44.34 L,Est GFR (MDRD) Non-Af 53 L, BUN/Creatinine Ratio 26.3 H, Glucose 114 H, Calcium 7.9 Rhythm Strip Rhythm Strip: A-fib Rate: 95 Ectopy: None Physical Exam Narrative General: Alert, Oriented x3, Cooperative, No apparent distress HEENT: Atraumatic, PERRLA, EOMI, Normocephalic Oral: Moist Mucosa Neck: Supple, No JVD Lungs: Diminished, Normal air movement, No rhonchi, No wheeze, No rales Cardiovascular: Regular rate, Regular Rhythm, Normal S1, Normal S2, No murmurs Abdomen: Soft, Non Tender, Non-Distended, No Hepato-splenomegaly Extremities: No edema, Capillary Refill Less than 3 Seconds Skin: No rashes, No breakdown Musculoskeletal: Tenderness to palpation behind his right knee Neurological: No focal neurological deficits, moves all of his extremities though right lower extremity is severely limited due to pain Psych/Mental Status: Normal Affect, Appropriate Assessment & Plan Assessment/Plan (1) Debility: (2) MAURO (acute kidney injury): (3) Leg pain, right: PLAN: Plan 1. Right lower extremity pain after stent placement for right popliteal pseudoaneurysm with hematoma with an inability complete ADLs and worsening weakness ? PT/OT ? His white count is elevated and it is possible to still be a reactive leukocytosis after intervention which was done on 08/02/2025 ? Will monitor for infectious etiologies if his white count does not completely resolve ? His groin site for the stent placement looks uninfected ? Will consult case management for placement given the significant debility withhis leukocytosis and dehydration will need discharge planning 2. MAURO ? Baseline creatinine is around 1 and his creatinine on admission was 1.53 ? Received IV fluids and his creatinine did improve slightly to 1.31 ? Will continue to monitor 3. Worsening acute on chronic anemia ? Baseline hemoglobin around 12-13, his hemoglobin on 07/27/2025 was 9.3 this is down from 11.4 on 05/04/2025 currently 8.6 ? Will obtain iron studies 4. CAD status post stent/bioprosthetic AVR/paroxysmal A-fib/essential HTN/HLD ? Blood pressure stable ? Continue with his home blood pressure medications ? Will monitor make adjustments as necessary ? Hold his losartan secondary to his MAURO 5. Anxiety/depression/mild cognitive impairment ? Stable ? Continue with his home medications 6. BPH with obstructive symptoms ? Stable ? Continue with Flomax 7. GERD ? Stable ? Continue with Pepcid DVT: Lovenox Charges/Coding Visit Charges Inpatient E&M: 83169 Subs Hosp L2 08/05/25 7507 Cosigner Signature (if applicable): CC: ~ Signed [facility]09-12-2025 History and physical note Author Morgan Dubon [facility] Note Date/Time August 04, 2025 5:22pm [facility] Medical Records Department [address] [place] [address] H&P Exam - Hospitalist 08/04/25 1608 MR#: [id number] Acct: [id number] Name: ELIAS SHAH Rep #:[id number] : 1940 85 From: Morgan Hansen jose luis DO PCP: Dr. Husam Khan MD Status:ADM I NO [id number] - General General Date of Admission: 08/04/25 Date of Service: 08/04/25 Chief Complaint: Weakness and difficulty with ambulation HPI Narrative ELIAS SHAH, is a 85 M who presented to [facility] ED on 08/04/2025 with weakness and difficulty with ambulation. Patient lives at home with his . He had a procedure done with Dr. Mckeon on 08/02. Had history ofright popliteal traumatic pseudoaneurysm after mechanical fall, and Dr. Mckeon performed an angioplasty with stent placement in the right popliteal artery. Left groin was the access site for the procedure. Patient was fine for discharge home postprocedure but notes that he has had ongoing pain behind the right knee since then and difficulty with ambulation. Also has not been eating or drinking well since then. In the ED he was mildly hypotensive to the 100s over 60s and borderline tachycardic to the 90s but otherwise stable on room air at rest. CBC with WBC count 14, hemoglobin 8.9 (hemoglobin 9.3 preoperatively). BMP with creatinine 1.53, (baseline around 1.1- 1.2). Dr. Avila noted that on exam the left groin site appeared to be healing well with no signs of infection,and the right knee appeared normal with no signs of swelling or erythema. He then discussed with Dr. Mckeon who noted that the patient had good bit of hematoma from the pseudoaneurysm and this would explain the pain behind the kneecurrently. Noted no need for repeat imaging or other vascular surgery workup atthis time. Hospitalist was contacted for admission. I saw the patient at bedside in the ED, was present. Patient was mildly fatigued appearing but otherwise sitting back comfortably in bed, conversing normally, in no acute distress. He had been given a dose of IV morphine 2 mg for the knee pain and stated this was mildly helpful for him. notes that patient has required SNF placement in the past and she does not feel like she isable to take care of him at home right now and would like SNF placement for him if possible. Patient is agreeable to this. Patient notes that he generally feels weak and debilitated, but he denies any other acute pain aside from behindthe right knee. Denies any pain at the left groin incision site. No other acute concerns currently. Will be admitted for further management. [facility] Medical History Macular degeneration Iron deficiency anemia [...] Anemia Hyperlipidemia Essential (primary) hypertension Home Medications ?Medication ?Instructions ?Recorded ?Last Taken ?Type tamsulosin 0.4 mg capsule 0.4 mg PO QHS urine flow Unknown History famotidine 40 mg tablet (Pepcid) 40 mg PO DAILY Unknown History citalopram 10 mg tablet 10 mg PO DAILY 02/18/21 Unkn own History donepezil 10 mg tablet 10 mg PO DAILY 02/18/21 Unkn own History quetiapine 25 mg tablet 25 mg PO BID 02/18/21 Unknow n History cyanocobalamin (vitamin B-12) 1,000 mcg PO DAILY 07/15 Unknown History 1,000 mcg capsule ascorbate calcium (vitamin C) 500 500 mg PO DAILY 12/25 12/14 Unknown History mg tablet carvedilol 3.125 mg tablet 3.125 mg PO BID #180 tabs 0 03/28/24 Unknown Rx hydralazine 50 mg tablet 50 mg PO TID #270 TABLETS 08/02/25 Rx amlodipine 5 mg tablet 5 mg PO QHS #90 tabs 5 08/02/25 Rx vit C 250 mg-vit E 90 mg-zinc 40 1 tab PO BID 06/22/25 Unknown History mg-copper 1 ds-dogjci-menlmx capsule (PreserVision AREDS-2) rosuvastatin 20 mg tablet (Crestor) 10 mg (1/2 x 20 mg ) PO DAILY #30 07/14/25 Unknown Rx tabs albuterol sulfate 90 mcg/actuation 2 puff inhalation Q 6H PRN 08/01/25 Unknown History aerosol inhaler shortness of breath or wheez ing clopidogrel 75 mg tablet 75 mg PO DAILY #90 tabs 07/24 12/17 Unknown Rx losartan 50 mg tablet 50 mg PO DAILY #90 tabs 07/24 12/17 Unknown Rx Allergy/AdvReac Type Severity Reaction Status Date / Time atorvastatin AdvReac Intermediate Myalgias Verified 07/27/25 14:23 Family History Father Cancer Lung cancer Sister Cancer Breast cancer Pancreas cancer Surgical History History of coronary artery bypass surgery (~07/04/19) History of aortic valve replacement with bioprosthetic valve (~07/04/19) History of right and left heart catheterization (03/02/19) S/P partial colectomy Umbilical hernia, incarcerated (12/04/18) Social History household members: family housing: house current occupational status: retired Smoking Status: Former smoker alcohol intake: never substance use type: does not use caffeine: Yes Type: carbonated beverages and coffee eating out: 1-3 times/week adán/judaism: Gnosticism seatbelt use: always do you feel safe at home: Yes ROS Constitutional Constitutional: Reports fatigue and weakness; Denies chills or fever(s) Cardiovascular Cardiovascular: Denies chest pain Respiratory/Chest Respiratory/Chest: Denies shortness of breath at rest Gastrointestinal Gastrointestinal: Denies abdominal pain Musculoskeletal Musculoskeletal: Reports other Details: Pain behind the right knee noted ; Denies arthralgias or myalgias Neurologic Neurologic: Denies dizziness, focal weakness, headache(s), numbness or tingling Vital Signs Vital Signs Vital Signs: 08/04/25 11:43 08/04/25 11:47 08/04/25 13:05 Temperature 98.5 F Temperature Source Oral Pulse Rate 95 89 Respiratory Rate 15 21 H Respiratory Effort Normal Non-Labored Respiratory Pattern Normal Blood Pressure 107/62 102/67 Blood Pressure Mean 77 79 Pulse Ox 98 96 Oxygen Delivery Method Room Air 08/04/25 13:15 08/04/25 13:30 08/04/25 13:45 Temperature Temperature Source Pulse Rate 94 87 93 Respiratory Rate 20 H 20 H 20 H Respiratory Effort Respiratory Pattern Blood Pressure 108/64 106/67 119/71 Blood Pressure Mean 79 80 86 Pulse Ox 96 97 96 Oxygen Delivery Method 08/04/25 14:00 08/04/25 14:15 08/04/25 14:29 Temperature Temperature Source Pulse Rate 86 93 92 Respiratory Rate 19 H 18 19 H Respiratory Effort Respiratory Pattern Blood Pressure 110/68 115/64 115/64 Blood Pressure Mean 80 78 81 Pulse Ox 95 95 96 Oxygen Delivery Method 08/04/25 14:30 08/04/25 14:45 08/04/25 15:00 Temperature Temperature Source Pulse Rate 94 94 Respiratory Rate 18 18 Respiratory Effort Respiratory Pattern Blood Pressure 107/74 117/69 119/73 Blood Pressure Mean 84 83 89 Pulse Ox 96 95 Oxygen Delivery Method Weight Weight: 91.3 kg Body Mass Index (BMI) 29.7 Physical Exam Const alert, oriented x3 and no apparent distress Constitutional Narrative: Elderly male, overweight, fatigued appearing, otherwise laying back fairly comfortably in bed, conversing normally, in no acute distress. General Appearance: cooperative and comfortable HEENT normocephalic, head/scalp atraumatic, hearing grossly normal bilaterally, nasal mucous membranes and turbinates normal and moist oral mucous membranes Eyes PERRL, EOMs intact bilaterally and conjunctivae normal Neck full ROM Chest inspection of chest normal Resp normal respiratory effort, normal air movement, no use of accessory muscles and clear to auscultation bilaterally Cardio no murmurs and peripheral pulses 2+ throughout Cardio Narrative: A-fib, rate controlled. GI normal to inspection, nondistended, normoactive bowel sounds, soft to palpation,non-tender and non-distended Back/Spine normal ROM Extremity Extremity Narrative: Left groin access site with no swelling, erythema or tenderness to palpation noted. Area behind the right knee mildly tender to palpation but no gross visual changes noted. Skin no rashes or lesions noted Neuro moves all extremities and no focal motor deficits Speech: speech normal Psych mental status grossly normal Results Lab / Micro Data 08/04/25 12:19 08/04/25 12:19 Labs: Laboratory Results - last 24 hr 08/04/25 12:19: WBC 14.6 H, RBC 3.48 L, Hgb 8.9 L, Hct 28.7 L, MCV 82.5, MCH 25.6 L, MCHC 31.0 L, RDW Std Deviation 49.2 H, RDW Coeff of Genesis 16.8 H, Plt Count 234, MPV 9.0, Immature Gran % (Auto) 2.400 H, Neut % (Auto) 78.2 H, Lymph % (Auto) 6.6 L, [place] % (Auto) 12.6 H, Eos % (Auto) 0.1, Baso % (Auto) 0.1, Absolute Neuts (auto) 11.4 H, Absolute Lymphs (auto) 0.96, Nucleated RBC % 0, Differential Comment COMMENT, Sodium 137, Potassium 4.3, Chloride 101, Carbon Dioxide 24.4, Anion Gap 11, BUN 39 H, Creatinine 1.53 H, Estim Creat Clear Calc 37.98 L, Est GFR (MDRD) Non-Af 44 L, BUN/Creatinine Ratio 25.4 H, Glucose 158 H,Lactic Acid 2.0, Calcium 8.4, Total Bilirubin 0.30, AST 114 H, ALT 83 H, Alkaline Phosphatase 112, Total Protein 6.5, Albumin 2.7 L, Globulin 3.8, Albumin/Globulin Ratio 0.7 L Rhythm Strip Rhythm Strip: A-fib Rate: 95 Ectopy: None Imaging Radiology Impression Chest X-Ray 08/04/25 12:25 IMPRESSION: No Acute Findings. Stable examination. Reading Location: [id number] Assessment & Plan Assessment/Plan (1) Debility: (2) MAURO (acute kidney injury): (3) Leg pain, right: PLAN: Plan Patient is an 85-year-old male who presented [facility] ED on 08/04/2025 for weakness and difficulty with ambulation. 1. Acute on chronic debility and difficulty with ambulation ? Admit under observation status to [facility]. PT/OT/case management consulted. Lives at home with but has required SNF placement in the past. Worsening weakness and difficulty with ambulation now is likely due to his recent procedure as below and dehydration from poor p.o. intake postoperatively. is requesting SNF placement on discharge and patient is agreeable with this. Has been [place] in the past and had a good experience with her. Appreciate therapy recommendations. 2. 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 Patient with history of right popliteal traumatic pseudoaneurysm secondary to a mechanical fall. Had right popliteal angioplasty with stent placement done with Dr. Mckeon on 08/02. Tolerated procedure well and was able to be dischargedhome, but has had significant right posterior knee pain since then especially with ambulation. Dr. Mckeon noted the patient had a significant hematoma in that popliteal area which is likely the cause of this pain. Otherwise left groin insertion site and right popliteal area with no concern for infection or other issues on exam. Pain control with Tylenol as needed and oxycodone as needed for now. No inpatient vascular surgery needs, continue outpatient follow-up. 3. Mild MAURO ? Creatinine 1.53 on admit, baseline 1.1-1.2. Presume prerenal secondary to postoperative dehydration with poor p.o. intake. Will give 1 L of IV fluids on admit. Follow-up a.m. BMP and monitor urine output. 4. Mild acute on chronic anemia ? Hemoglobin 8.9 on admit. Was 9.3 on 07/27 and prior baseline appears to be around 11-12. Hemoglobin dropped to 9.3 was presumably due to pseudoaneurysm asabove. Suspect hemoglobin on this admission is somewhat hemoconcentrated and may be closer to 8-8.5, but this would still be consistent with worsened anemia due to expected procedural blood loss. No active signs of bleeding noted. Follow-up a.m. CBC. Chronic medical conditions: ? History of CAD with stenting and LORENE clipping, history of bioprosthetic AVR, paroxysmal A-fib, hypertension, hyperlipidemia: Follows with [place] cardiology. In rate controlled A-fib in the ED. Not on anticoagulation due to prior history of significant hematuria and has had left atrial appendage clipping done. Blood pressure low normal in the ED presumably due to volume depletion postoperatively as above. Okay to continue home amlodipine, hydralazine and carvedilol with hold parameters. Will hold losartan for now. Continue home Plavix and rosuvastatin. ? Mild cognitive impairment with anxiety/depression: Stable. Continue home citalopram, Seroquel and donepezil. ? BPH with obstructive symptoms: Stable. Continue home Flomax. ? GERD: Continue home Pepcid. DVT prophylaxis: Lovenox CODE STATUS: Full code, verified Expected disposition: TBD Total clinical time spent by myself addressing the patient's medical issues, reviewing all the data, and collaborating with patient's care team: 79 minutes. Charges/Coding Visit Charges Inpatient E&M: 06245 Init Hosp L3 08/04/25 1722 <Electronically signed by oMrgan Dubon DO> Cosigner Signature (if applicable): CC: Dr. Morgan Dubon DO; Dr. Husam Khan MD~ Signed [facility] Work Phone: [phone]) 129-639509-12-2025 Discharge summary Author Ted Mtz [facility] Note Date/Time August 04, 2025 4:13pm [facility] Medical Records Department [address] [place] [address] Emergency Department Summary 08/04/25 MR#: [id number] Acct: [id number] Name: ELIAS SHAH Farshad Rep #:[id number] : 1940 85 From: Ted Mtz MD PCP: Dr. Husam Khan MD Status:REG E R Location: ED HPI History of Present Illness Chief Complaint: Weakness Informant: patient and spouse/S.O. Narrative Narrative: 85-year-old male presenting for generalized weakness and trouble standing or walking due to pain in the right popliteal fossa where he had an aneurysm fixed by vascular surgery 2 days ago according to . She also suggest she is looking for respite care. Has been having trouble caring for him anymore, especially the condition he has been in for the past 2 days. She has been looking to getting him into a fdc facility recently, but his acute worsening since his surgery have limited their ability to do that quickly as an outpatient. He has had several near falls and has been very weak. [facility] Medical History Macular degeneration Iron [...] Anemia Hyperlipidemia Essential (primary) hypertension Home Medications ?Medication ?Instructions ?Recorded ?Last Taken ?Type tamsulosin 0.4 mg capsule 0.4 mg PO QHS urine flow Unknown History famotidine 40 mg tablet (Pepcid) 40 mg PO DAILY Unknown History citalopram 10 mg tablet 10 mg PO DAILY 02/18/21 Unkn own History donepezil 10 mg tablet 10 mg PO DAILY 02/18/21 Unkn own History quetiapine 25 mg tablet 25 mg PO BID 02/18/21 Unknow n History cyanocobalamin (vitamin B-12) 1,000 mcg PO DAILY 07/15 Unknown History 1,000 mcg capsule ascorbate calcium (vitamin C) 500 500 mg PO DAILY 12/25 12/14 Unknown History mg tablet carvedilol 3.125 mg tablet 3.125 mg PO BID #180 tabs 0 03/28/24 Unknown Rx hydralazine 50 mg tablet 50 mg PO TID #270 TABLETS 05 /13/25 09/10/25 Rx amlodipine 5 mg tablet 5 mg PO QHS #90 tabs 5 08/02/25 Rx vit C 250 mg-vit E 90 mg-zinc 40 1 tab PO BID 06/22/25 Unknown History mg-copper 1 [id number] capsule (PreserVision AREDS-2) rosuvastatin 20 mg tablet (Crestor) 10 mg (1/2 x 20 mg ) PO DAILY #30 07/14/25 Unknown Rx tabs albuterol sulfate 90 mcg/actuation 2 puff inhalation Q 6H PRN 08/01/25 Unknown History aerosol inhaler shortness of breath or wheez ing clopidogrel 75 mg tablet 75 mg PO DAILY #90 tabs 07/24 12/17 Unknown Rx losartan 50 mg tablet 50 mg PO DAILY #90 tabs 07/24 12/17 Unknown Rx Allergy/AdvReac Type Severity Reaction Status Date / Time atorvastatin AdvReac Intermediate Myalgias Verified 07/27/25 14:23 Family History Father Cancer Lung cancer Sister Cancer Breast cancer Pancreas cancer Surgical History History of coronary artery bypass surgery (~07/04/19) History of aortic valve replacement with bioprosthetic valve (~07/04/19) History of right and left heart catheterization (03/02/19) S/P partial colectomy Umbilical hernia, incarcerated (12/04/18) Social History household members: family housing: house current occupational status: retired Smoking Status: Former smoker alcohol intake: never substance use type: does not use caffeine: Yes Type: carbonated beverages and coffee eating out: 1-3 times/week adán/judaism: Gnosticism seatbelt use: always do you feel safe at home: Yes ROS ROS ED Constitutional Constitutional ED: Reports weakness; Denies chills or fever(s) Eyes Eyes: Denies change in vision or diplopia ENT ENT ED: Denies rhinorrhea or sore throat Cardiovascular Cardiovascular: Denies chest pain or palpitations Respiratory/Chest Respiratory/Chest: Denies cough or dyspnea Gastrointestinal Gastrointestinal: Denies abdominal pain, diarrhea, nausea or vomiting Genitourinary Genitourinary ED: Denies dysuria or hematuria Musculoskeletal Musculoskeletal: Reports as per HPI and extremity pain; Denies back pain or neckpain Integumentary Denies abscess or rash Neurologic Neurologic: Denies headache(s), paresthesias or weakness Psychiatric Psychiatric: Denies anxiety or suicidal thoughts EXAM Physical Exam Const Vital Signs: 08/04/25 11:43 08/04/25 11:47 08/04/25 13:05 Temperature 98.5 F Temperature Source Oral Pulse Rate 95 89 Respiratory Rate 15 21 H Respiratory Effort Normal Non-Labored Respiratory Pattern Normal Blood Pressure 107/62 102/67 Blood Pressure Mean 77 79 Pulse Ox 98 96 Oxygen Delivery Method Room Air 08/04/25 13:15 08/04/25 13:30 08/04/25 13:45 Temperature Temperature Source Pulse Rate 94 87 93 Respiratory Rate 20 H 20 H 20 H Respiratory Effort Respiratory Pattern Blood Pressure 108/64 106/67 119/71 Blood Pressure Mean 79 80 86 Pulse Ox 96 97 96 Oxygen Delivery Method 08/04/25 14:00 08/04/25 14:15 08/04/25 14:29 Temperature Temperature Source Pulse Rate 86 93 92 Respiratory Rate 19 H 18 19 H Respiratory Effort Respiratory Pattern Blood Pressure 110/68 115/64 115/64 Blood Pressure Mean 80 78 81 Pulse Ox 95 95 96 Oxygen Delivery Method 08/04/25 14:30 08/04/25 14:45 08/04/25 15:00 Temperature Temperature Source Pulse Rate 94 94 Respiratory Rate 18 18 Respiratory Effort Respiratory Pattern Blood Pressure 107/74 117/69 119/73 Blood Pressure Mean 84 83 89 Pulse Ox 96 95 Oxygen Delivery Method Positive well nourished and well developed General Appearance ED: well developed and NAD HEENT Reports moist mucous membranes normocephalic and atraumatic Eyes PERRL and EOMs intact bilaterally Neck full ROM and supple Resp normal respiratory effort and clear to auscultation bilaterally Cardio Rhythm: abnormal rhythm irregularly irregular Heart Sounds: murmur systolic II/ crescendo-decrescendo GI non-tender and non-distended Auscultation: normoactive bowel sounds Palpation: soft Back/Spine no CVA tenderness General Back: other FROM Extremity normal to inspection Extremity Narrative: Mild tenderness in right popliteal fossa which is normal-appearing. There is a left groin puncture site, there is no drainage or signs of infection, there is apalpable femoral pulse there. Thready but palpable pulses both feet dorsalis pedis can brisk cap refill both feet/toes. 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 He is on aspirin and clopidogrel no anticoagulants, appears to be perfusing well, but not tolerating the pain and very weak overall. Hemoglobin is a little lower than it was a week ago at 8.9, but not markedly so when he wasat 9.3 before. I discussed all that with vascular Dr. Mckeon, he states as longas the patient is perfusing well, this should not be an issue with the procedurewhich I agree with, he states that there was quite a bit of hematoma there and so the pain is probably explained by that, he does not appear to have new purpura/ecchymosis to suggest active bleeding on my exam. Vascular recommends continuing aspirin and clopidogrel for now. Labs do show acute renal insufficiency, he will be given some IV fluids. His vital signs are normal. [place] have a bit of a leukocytosis, but he does not appear to be or have any evidence on ancillaries of sepsis. I did do a 1 view chest x-ray which on my interpretation shows no evidence of pneumonia radiology in agreement. He has good perfusion to his right foot. Still waiting for urinalysis, is getting IV fluids so we can get some urine from him. In the meantime discussed with hospitalist for admission. History & Record Review Additional record(s) reviewed:: Prior outpatient record (Vascular surgery officevisit) Lab Data Attestation: I reviewed the patient's lab results. Labs: Laboratory Results - last 24 hr 08/04/25 12:19 WBC 14.6 H RBC 3.48 L Hgb 8.9 L Hct 28.7 L MCV 82.5 MCH 25.6 L MCHC 31.0 L RDW Std Deviation 49.2 H RDW Coeff of Genesis 16.8 H Plt Count 234 MPV 9.0 Immature Gran % (Auto) 2.400 H Neut % (Auto) 78.2 H Lymph % (Auto) 6.6 L [place] % (Auto) 12.6 H Eos % (Auto) 0.1 Baso % (Auto) 0.1 Absolute Neuts (auto) 11.4 H Absolute Lymphs (auto) 0.96 Nucleated RBC % 0 Differential Comment COMMENT Sodium 137 Potassium 4.3 Chloride 101 Carbon Dioxide 24.4 Anion Gap 11 BUN 39 H Creatinine 1.53 H Estim Creat Clear Calc 37.98 L Est GFR (MDRD) Non-Af 44 L BUN/Creatinine Ratio 25.4 H Glucose 158 H Lactic Acid 2.0 Calcium 8.4 Total Bilirubin 0.30 AST 114 H ALT 83 H Alkaline Phosphatase 112 Total Protein 6.5 Albumin 2.7 L Globulin 3.8 Albumin/Globulin Ratio 0.7 L Radiography Diagnostic Testing: Clinical Impression(s) from Imaging Studies Chest X-Ray 08/04/25 12:25 IMPRESSION: No Acute Findings. Stable examination. Reading Location: [id number] Rhythm Strip Rhythm Strip: A-fib Rate: 95 Ectopy: None EKG Initial EKG: Attestation: I personally reviewed and interpreted this EKG as follows: Interpretation: No Acute Injury Pattern, Atrial Fibrillation and LBBB Prior EKG tracings: available for review Prior: Unchanged Management Discussion w/another healthcare provider: Hospitalist and Chief Librarian Branch (Vascular) Discharge Plan Dx/Rx/DC Orders Clinical Impression: MAURO (acute kidney injury), Paroxysmal atrial fibrillation, Debility, Leg pain, right Disposition Disposition: Acute Care Hospital [facility] What to do if you have Problems For any increased pain, shortness of breath, bleeding, nausea or vomiting, chestpain, or any unexpected problems, contact your Primary Care Provider. Call [facility] ([phone]) or report to the closest Emergency Room. Call 911 if necessary. 08/04/25 6727 <Electronically signed by Ted Mtz MD> Cosigner Signature (if applicable): CC: Dr. Husam Khan MD ~ Signed [facility] Work Phone: 1(872) 861-312009-12-2025 History and physical note [facility] Medical Records Department [address] [place] [address] H&P Exam - Hospitalist 08/04/25 1608 MR#: [id number] Acct: [id number] Name: ELIAS SHAH Rep #:[id number] : 1940 85 From: Morgan aguilar DO PCP: Dr. Husam Khan MD Status:ADM I NO Location: SC3 AG695-0 HPI - General General Date of Admission: 08/04/25 Date of Service: 08/04/25 Chief Complaint: Weakness and difficulty with ambulation HPI Narrative ELIAS SHAH, is a 85 M who presented to [facility] ED on 08/04/2025 with weakness and difficulty with ambulation. Patient lives at home with his . He had a procedure done with Dr. Mckeon on 08/02. Had history ofright popliteal traumatic pseudoaneurysm after mechanical fall, and Dr. Mckeon performed an angioplasty with stent placement in the right popliteal artery. Left groinwas the access site for the procedure. Patient was fine for discharge home postprocedure but notes that he has had ongoing pain behind the right knee since then and difficulty with ambulation. Also has not been eating or drinking well since then. In the ED he was mildly hypotensive to the 100s [id number] and borderline tachycardic to the 90s but otherwise stable on room air at rest. CBC with WBC count 14, hemoglobin 8.9 (hemoglobin 9.3 preoperatively). BMP with creatinine 1.53, (baseline around 1.1-1.2). Dr. Avila noted that on exam the left groin site appeared to be healing well with no signs of infection,and the right knee appeared normal with no signs of swelling or erythema. He then discus sed with Dr. Mckeon who noted that the patient had good bit of hematoma from the pseudoaneurysm andthis would explain the pain behind the kneecurrently. Noted no need for repeat imaging or other vascular surgery workup atthis time. Hospitalist was contacted for admission. I saw the patient at bedside in the ED, was present. Patient was mildly fatigued appearing butotherwise sitting back comfortably in bed, conversing normally, in no acute distress. He had been given a dose of IV morphine 2 mg for the knee pain and stated this was mildly helpful for him. notes that patient has required SNF placement in the past and she does not feel like she isable to take care of him at home right now and would like SNF placement for him if possible. Patient is agreeable to this. Patient notes that he generally feels weak and debilitated, but he denies any other acute pain aside from behindthe right knee. Denies any pain at the left groin incision site. No other acute concerns currently. Will be admitted for further management. [facility] Medical History Macular degeneration Iron deficiency anemia [...] Anemia Hyperlipidemia Essential (primary) hypertension Home Medications ?Medication ?Instructions ?Recorded ?Last Taken ?Type tamsulosin 0.4 mg capsule 0.4 mg PO QHS urine flow Unknown History famotidine 40 mg tablet (Pepcid) 40 mg PO DAILY Unknown History citalopram 10 mg tablet 10 mg PO DAILY 02/18/21 Unkn own History donepezil 10 mg tablet 10 mg PO DAILY 02/18/21 Unkn own History quetiapine 25 mg tablet 25 mg PO BID 02/18/21 Unknow n History cyanocobalamin (vitamin B-12) 1,000 mcg PO DAILY 07/15 Unknown History 1,000 mcg capsule ascorbate calcium (vitamin C) 500 500 mg PO DAILY 12/25 12/14 Unknown History mg tablet carvedilol 3.125 mg tablet 3.125 mg PO BID #180 tabs 0 03/28/24 Unknown Rx hydralazine 50 mg tablet 50 mg PO TID #270 TABLETS 08/02/25 Rx amlodipine 5 mg tablet 5 mg PO QHS #90 tabs 5 08/02/25 Rx vit C 250 mg-vit E 90 mg-zinc 40 1 tab PO BID 06/22/25 Unknown History mg-copper 1 [id number] capsule (PreserVision AREDS-2) rosuvastatin 20 mg tablet (Crestor) 10 mg (1/2 x 20 mg ) PO DAILY #30 07/14/25 Unknown Rx tabs albuterol sulfate 90 mcg/actuation 2 puff inhalation Q 6H PRN 08/01/25 Unknown History aerosol inhaler shortness of breath or wheez ing clopidogrel 75 mg tablet 75 mg PO DAILY #90 tabs 07/24 12/17 Unknown Rx losartan 50 mg tablet 50 mg PO DAILY #90 tabs 07/24 12/17 Unknown Rx Allergy/AdvReac Type Severity Reaction Status Date / Time atorvastatin AdvReac Intermediate Myalgias Verified 07/27/25 14:23 Family History Father Cancer Lung cancer Sister Cancer Breast cancer Pancreas cancer Surgical History History of coronary artery bypass surgery (~07/04/19) History of aortic valve replacement with bioprosthetic valve (~07/04/19) History of right and left heart catheterization (03/02/19) S/P partial colectomy Umbilical hernia, incarcerated (12/04/18) Social History household members: family housing: house current occupational status: retired Smoking Status: Former smoker alcohol intake: never substance use type: does not use caffeine: Yes Type: carbonated beverages and coffee eating out: 1-3 times/week adán/judaism: Gnosticism seatbelt use: always do you feel safe at home: Yes ROS Constitutional Constitutional: Reports fatigue and weakness; Denies chills or fever(s) Cardiovascular Cardiovascular: Denies chest pain Respiratory/Chest Respiratory/Chest: Denies shortness of breath at rest Gastrointestinal Gastrointestinal: Denies abdominal pain Musculoskeletal Musculoskeletal: Reports other Details: Pain behind the right knee noted ; Denies arthralgias or myalgias Neurologic Neurologic: Denies dizziness, focal weakness, headache(s), numbness or tingling Vital Signs Vital Signs Vital Signs: 08/04/25 11:43 08/04/25 11:47 08/04/25 13:05 Temperature 98.5 F Temperature Source Oral Pulse Rate 95 89 Respiratory Rate 15 21 H Respiratory Effort Normal Non-Labored Respiratory Pattern Normal Blood Pressure 107/62 102/67 Blood Pressure Mean 77 79 Pulse Ox 98 96 Oxygen Delivery Method Room Air 08/04/25 13:15 08/04/25 13:30 08/04/25 13:45 Temperature Temperature Source Pulse Rate 94 87 93 Respiratory Rate 20 H 20 H 20 H Respiratory Effort Respiratory Pattern Blood Pressure 108/64 106/67 119/71 Blood Pressure Mean 79 80 86 Pulse Ox 96 97 96 Oxygen Delivery Method 08/04/25 14:00 08/04/25 14:15 08/04/25 14:29 Temperature Temperature Source Pulse Rate 86 93 92 Respiratory Rate 19 H 18 19 H Respiratory Effort Respiratory Pattern Blood Pressure 110/68 115/64 115/64 Blood Pressure Mean 80 78 81 Pulse Ox 95 95 96 Oxygen Delivery Method 08/04/25 14:30 08/04/25 14:45 08/04/25 15:00 Temperature Temperature Source Pulse Rate 94 94 Respiratory Rate 18 18 Respiratory Effort Respiratory Pattern Blood Pressure 107/74 117/69 119/73 Blood Pressure Mean 84 83 89 Pulse Ox 96 95 Oxygen Delivery Method Weight Weight: 91.3 kg Body Mass Index (BMI) 29.7 Physical Exam Const alert, oriented x3 and no apparent distress Constitutional Narrative: Elderly male, overweight, fatigued appearing, otherwise laying back fairly comfortably in bed, conversing normally, in no acute distress. General Appearance: cooperative and comfortable HEENT normocephalic, head/scalp atraumatic, hearing grossly normal bilaterally, nasal mucous membranes and turbinates normal and moist oral mucous membranes Eyes PERRL, EOMs intact bilaterally and conjunctivae normal Neck full ROM Chest inspection of chest normal Resp normal respiratory effort, normal air movement, no use of accessory muscles and clear to auscultation bilaterally Cardio no murmurs and peripheral pulses 2+ throughout Cardio Narrative: A-fib, rate controlled. GI normal to inspection, nondistended, normoactive bowel sounds, soft to palpation,non-tender and non-distended Back/Spine normal ROM Extremity Extremity Narrative: Left groin access site with no swelling, erythema or tenderness to palpation noted. Area behind theright knee mildly tender to palpation but no gross visual changes noted. Skin no rashes or lesions noted Neuro moves all extremities and no focal motor deficits Speech: speech normal Psych mental status grossly normal Results Lab / Micro Data 08/04/25 12:19 08/04/25 12:19 Labs: Laboratory Results - last 24 hr 08/04/25 12:19: WBC 14.6 H, RBC 3.48 L, Hgb 8.9 L, Hct 28.7 L, MCV 82.5, MCH 25.6 L, MCHC 31.0 L, RDW Std Deviation 49.2 H, RDW Coeff of Genesis 16.8 H, Plt Count 234, MPV 9.0, Immature Gran % (Auto) 2.400 H, Neut % (Auto) 78.2 H, Lymph % (Auto) 6.6 L, [place] % (Auto) 12.6 H, Eos % (Auto) 0.1, Baso % (Auto) 0.1, Absolute Neuts (auto) 11.4 H, Absolute Lymphs (auto) 0.96, Nucleated RBC % 0, Differential Comment COMMENT, Sodium 137, Potassium 4.3, Chloride 101, Carbon Dioxide 24.4, Anion Gap 11, BUN 39 H, Creatinine 1.53 H, Estim Creat Clear Calc 37.98 L, Est GFR (MDRD) Non-Af 44 L, BUN/Creatinine Ratio 25.4 H, Glucose 158 H,Lactic Acid 2.0, Calcium 8.4, Total Bilirubin 0.30, AST 114 H, ALT 83 H, Alk andres Phosphatase 112, Total Protein 6.5, Albumin 2.7 L, Globulin 3.8, Albumin/Globulin Ratio 0.7 L Rhythm Strip Rhythm Strip: A-fib Rate: 95 Ectopy: None Imaging Radiology Impression Chest X-Ray 08/04/25 12:25 IMPRESSION: No Acute Findings. Stable examination. Reading Location: [id number] Assessment & Plan Assessment/Plan (1) Debility: (2) MAURO (acute kidney injury): (3) Leg pain, right: PLAN: Plan Patient is an 85-year-old male who presented [facility] ED on 08/04/2025 for weakness and difficulty with ambulation. 1. Acute on chronic debility and difficulty with ambulation ? Admit under observation status to [facility]. PT/OT/case management consulted. Lives at home with but has required SNF placement in the past. Worsening weakness and difficulty with ambulation nowis likely due to his recent procedure as below and dehydration from poor p.o. intake postoperatively. is requesting SNF placement on discharge and patient is agreeable with this. Has been [place] in the past and had a good experience with her. Appreciate therapy recommendations. 2. 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 Patient with history of right popliteal traumatic pseudoaneurysm secondary to a mechanical fall. Had right popliteal angioplasty with stent placement done with Dr. Mckeon on 08/02. Tolerated procedure well and was able to be dischargedhome, but has had significant right posterior knee pain since then especially with ambulation. Dr. Mckeon noted the patient had a significant hematoma in that popliteal area which is likely the cause of this pain. Otherwise left groin insertion site and right popliteal area with no concern for infection or other issues on exam. Pain control with Tylenol as needed and oxycodone as needed for now. No inpatient vascular surgery needs, continue outpatient follow-up. 3. Mild MAURO ? Creatinine 1.53 on admit, baseline 1.1-1.2. Presume prerenal secondary to postoperative dehydration with poor p.o. intake. Will give 1 L of IV fluids on admit. Follow-up a.m. BMP and monitor urine output. 4. Mild acute on chronic anemia ? Hemoglobin 8.9 on admit. Was 9.3 on 07/27 and prior baseline appears to be around 11-12. Hemoglobindropped to 9.3 was presumably due to pseudoaneurysm asabove. Suspect hemoglobin on this admission is somewhat hemoconcentrated and may be closer to 8-8.5, but this would still be consistent with worsened anemia due to expected procedural blood loss. No active signs of bleeding noted. Follow-up a.m.CBC. Chronic medical conditions: ? History of CAD with stenting and LORENE clipping, history of bioprosthetic AVR, paroxysmal A-fib, hypertension, hyperlipidemia: Follows with [place] cardiology. In rate controlled A-fib in the ED. [place] anticoagulation due to prior history of significant hematuria and has had left atrial appendage clipping done. Blood pressure low normal in the ED presumably due to volume depletion postoperatively as above. Okay to continue home amlodipine, hydralazine and carvedilol with hold parameters. Will hold losartan for now. Continue home Plavix and rosuvastatin. ? Mild cognitive impairment with anxiety/depression: Stable. Continue home citalopram, Seroquel anddonepezil. ? BPH with obstructive symptoms: Stable. Continue home Flomax. ? GERD: Continue home Pepcid. DVT prophylaxis: Lovenox CODE STATUS: Full code, verified Expected disposition: TBD Total clinical time spent by myself addressing the patient's medical issues, reviewing all the data, and collaborating with patient's care team: 79 minutes. Charges/Coding Visit Charges Inpatient E&M: 07963 Init Hosp L3 08/04/25 1722 Cosigner Signature (if applicable): CC: Dr. Morgan Dubon DO; Dr. Husam Khan MD~ Signed [facility]09-12-2025 Discharge summary [facility] Medical Records Department [address] [place] [address] Emergency Department Summary 08/04/25 MR#: [id number] Acct: [id number] Name: ELIAS SHAH Rep #:[id number] : 1940 85 From: Ted Mtz MD PCP: Dr. Husam Khan MD Status:REG E R Location: ED HPI History of Present Illness Chief Complaint: Weakness Informant: patient and spouse/S.O. Narrative Narrative: 85-year-old male presenting for generalized weakness and trouble standing or walking due to pain inthe right popliteal fossa where he had an aneurysm fixed by vascular surgery 2 days ago according to . She also suggest she is looking for respite care. Has been having trouble caring for him anymore, especially the condition he has been in for the past 2 days. She has been looking to getting him into a fdc facility recently, but his acute worsening since his surgery have limited their ability to do that quickly as an outpatient. He has had several near falls and has been very weak. [facility] Medical History Macular degeneration Iron [...] Anemia Hyperlipidemia Essential (primary) hypertension Home Medications ?Medication ?Instructions ?Recorded ?Last Taken ?Type tamsulosin 0.4 mg capsule 0.4 mg PO QHS urine flow Unknown History famotidine 40 mg tablet (Pepcid) 40 mg PO DAILY Unknown History citalopram 10 mg tablet 10 mg PO DAILY 02/18/21 Unkn own History donepezil 10 mg tablet 10 mg PO DAILY 02/18/21 Unkn own History quetiapine 25 mg tablet 25 mg PO BID 02/18/21 Unknow n History cyanocobalamin (vitamin B-12) 1,000 mcg PO DAILY 07/15 Unknown History 1,000 mcg capsule ascorbate calcium (vitamin C) 500 500 mg PO DAILY 12/25 12/14 Unknown History mg tablet carvedilol 3.125 mg tablet 3.125 mg PO BID #180 tabs 0 03/28/24 Unknown Rx hydralazine 50 mg tablet 50 mg PO TID #270 TABLETS 08/02/25 Rx amlodipine 5 mg tablet 5 mg PO QHS #90 tabs 5 08/02/25 Rx vit C 250 mg-vit E 90 mg-zinc 40 1 tab PO BID 06/22/25 Unknown History mg-copper 1 [id number] capsule (PreserVision AREDS-2) rosuvastatin 20 mg tablet (Crestor) 10 mg (1/2 x 20 mg ) PO DAILY #30 07/14/25 Unknown Rx tabs albuterol sulfate 90 mcg/actuation 2 puff inhalation Q 6H PRN 08/01/25 Unknown History aerosol inhaler shortness of breath or wheez ing clopidogrel 75 mg tablet 75 mg PO DAILY #90 tabs 07/24 12/17 Unknown Rx losartan 50 mg tablet 50 mg PO DAILY #90 tabs 07/24 12/17 Unknown Rx Allergy/AdvReac Type Severity Reaction Status Date / Time atorvastatin AdvReac Intermediate Myalgias Verified 07/27/25 14:23 Family History Father Cancer Lung cancer Sister Cancer Breast cancer Pancreas cancer Surgical History History of coronary artery bypass surgery (~07/04/19) History of aortic valve replacement with bioprosthetic valve (~07/04/19) History of right and left heart catheterization (03/02/19) S/P partial colectomy Umbilical hernia, incarcerated (12/04/18) Social History household members: family housing: house current occupational status: retired Smoking Status: Former smoker alcohol intake: never substance use type: does not use caffeine: Yes Type: carbonated beverages and coffee eating out: 1-3 times/week adán/judaism: Gnosticism seatbelt use: always do you feel safe at home: Yes ROS ROS ED Constitutional Constitutional ED: Reports weakness; Denies chills or fever(s) Eyes Eyes: Denies change in vision or diplopia ENT ENT ED: Denies rhinorrhea or sore throat Cardiovascular Cardiovascular: Denies chest pain or palpitations Respiratory/Chest Respiratory/Chest: Denies cough or dyspnea Gastrointestinal Gastrointestinal: Denies abdominal pain, diarrhea, nausea or vomiting Genitourinary Genitourinary ED: Denies dysuria or hematuria Musculoskeletal Musculoskeletal: Reports as per HPI and extremity pain; Denies back pain or neckpain Integumentary Denies abscess or rash Neurologic Neurologic: Denies headache(s), paresthesias or weakness Psychiatric Psychiatric: Denies anxiety or suicidal thoughts EXAM Physical Exam Const Vital Signs: 08/04/25 11:43 08/04/25 11:47 08/04/25 13:05 Temperature 98.5 F Temperature Source Oral Pulse Rate 95 89 Respiratory Rate 15 21 H Respiratory Effort Normal Non-Labored Respiratory Pattern Normal Blood Pressure 107/62 102/67 Blood Pressure Mean 77 79 Pulse Ox 98 96 Oxygen Delivery Method Room Air 08/04/25 13:15 08/04/25 13:30 08/04/25 13:45 Temperature Temperature Source Pulse Rate 94 87 93 Respiratory Rate 20 H 20 H 20 H Respiratory Effort Respiratory Pattern Blood Pressure 108/64 106/67 119/71 Blood Pressure Mean 79 80 86 Pulse Ox 96 97 96 Oxygen Delivery Method 08/04/25 14:00 08/04/25 14:15 08/04/25 14:29 Temperature Temperature Source Pulse Rate 86 93 92 Respiratory Rate 19 H 18 19 H Respiratory Effort Respiratory Pattern Blood Pressure 110/68 115/64 115/64 Blood Pressure Mean 80 78 81 Pulse Ox 95 95 96 Oxygen Delivery Method 08/04/25 14:30 08/04/25 14:45 08/04/25 15:00 Temperature Temperature Source Pulse Rate 94 94 Respiratory Rate 18 18 Respiratory Effort Respiratory Pattern Blood Pressure 107/74 117/69 119/73 Blood Pressure Mean 84 83 89 Pulse Ox 96 95 Oxygen Delivery Method Positive well nourished and well developed General Appearance ED: well developed and NAD HEENT Reports moist mucous membranes normocephalic and atraumatic Eyes PERRL and EOMs intact bilaterally Neck full ROM and supple Resp normal respiratory effort and clear to auscultation bilaterally Cardio Rhythm: abnormal rhythm irregularly irregular Heart Sounds: murmur systolic II/ crescendo-decrescendo GI non-tender and non-distended Auscultation: normoactive bowel sounds Palpation: soft Back/Spine no CVA tenderness General Back: other FROM Extremity normal to inspection Extremity Narrative: Mild tenderness in right popliteal fossa which is normal-appearing. There is a left groin puncture site, there is no drainage or signs of infection, there is apalpable femoral pulse there. Thready but palpable pulses both feet dorsalis pedis can brisk cap refill both feet/toes. 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 He is on aspirin and clopidogrel no anticoagulants, appears to be perfusing well, but not tolerating the pain and very weak overall. Hemoglobin is a little lower than it was a week ago at 8.9, but not markedly so when he wasat 9.3 before. I discussed all that with vascular Dr. Mckeon, he states as longas the patient is perfusing well, this should not be an issue with the procedurewhich I agree with, he states that there was quitea bit of hematoma there and so the pain is probably explained by that, he does not appear to have new purpura/ecchymosis to suggest active bleeding on my exam. Vascular recommends continuing aspirin and clopidogrel for now. Labs do show acute renal insufficiency, he will be given some IV fluids. His vital signs are normal. Mariana have a bit of a leukocytosis, but he does not appear to be or have any evidence on ancillaries of sepsis. I did do a 1 view chest x-ray which on my interpretation shows no evidence of pneumonia radiology in agreement. He has good perfusion to his right foot. Still waiting for urinalysis, is getting IV fluids so we can get some urine from him. In the meantime discussed with hospitalist for admission. History & Record Review Additional record(s) reviewed:: Prior outpatient record (Vascular surgery officevisit) Lab Data Attestation: I reviewed the patient's lab results. Labs: Laboratory Results - last 24 hr 08/04/25 12:19 WBC 14.6 H RBC 3.48 L Hgb 8.9 L Hct 28.7 L MCV 82.5 MCH 25.6 L MCHC 31.0 L RDW Std Deviation 49.2 H RDW Coeff of Genesis 16.8 H Plt Count 234 MPV 9.0 Immature Gran % (Auto) 2.400 H Neut % (Auto) 78.2 H Lymph % (Auto) 6.6 L [place] % (Auto) 12.6 H Eos % (Auto) 0.1 Baso % (Auto) 0.1 Absolute Neuts (auto) 11.4 H Absolute Lymphs (auto) 0.96 Nucleated RBC % 0 Differential Comment COMMENT Sodium 137 Potassium 4.3 Chloride 101 Carbon Dioxide 24.4 Anion Gap 11 BUN 39 H Creatinine 1.53 H Estim Creat Clear Calc 37.98 L Est GFR (MDRD) Non-Af 44 L BUN/Creatinine Ratio 25.4 H Glucose 158 H Lactic Acid 2.0 Calcium 8.4 Total Bilirubin 0.30 AST 114 H ALT 83 H Alkaline Phosphatase 112 Total Protein 6.5 Albumin 2.7 L Globulin 3.8 Albumin/Globulin Ratio 0.7 L Radiography Diagnostic Testing: Clinical Impression(s) from Imaging Studies Chest X-Ray 08/04/25 12:25 IMPRESSION: No Acute Findings. Stable examination. Reading Location: [id number] Rhythm Strip Rhythm Strip: A-fib Rate: 95 Ectopy: None EKG Initial EKG: Attestation: I personally reviewed and interpreted this EKG as follows: Interpretation: No Acute Injury Pattern, Atrial Fibrillation and LBBB Prior EKG tracings: available for review Prior: Unchanged Management Discussion w/another healthcare provider: Hospitalist and Chief Librarian Branch (Vascular) Discharge Plan Dx/Rx/DC Orders Clinical Impression: MAURO (acute kidney injury), Paroxysmal atrial fibrillation, Debility, Leg pain, right Disposition Disposition: [facility] What to do if you have Problems For any increased pain, shortness of breath, bleeding, nausea or vomiting, chestpain, or any unexpected problems, contact your Primary Care Provider. Call [facility] ([phone]) or report tothe closest Emergency Room. Call 911 if necessary. 08/04/25 1613 Cosigner Signature (if applicable): CC: Dr. Husam Khan MD ~ Signed [facility]09-12-2025 Radiology Diagnostic study note [facility] Imaging Services [address] [place], [place] [address] Chest 1 View (Portable) MR#: [id number] Acct: [id number] Name: ELIAS SHAH Rep #: [id number] : 1940 85 From: Elliott Vargas MD PCP: Dr. Husam Khan MD Status: REG E R Study:Chest 1 View (Portable) Date of Exam: 08/04/25 Exam# [id number] Ordering Dr: Bishop Mtz MD PROCEDURE: CHEST 1 VIEW (PORTABLE) 08/04/2025 REASON FOR EXAM: WEAKNESS TECHNIQUE: Frontal view of the chest. COMPARISON: Prior study dated September 01, 2019. FINDINGS: Hardware: EKG electrodes are seen. Status post midline sternotomy. Mitral valve replacement. Heart: The heart is nonenlarged. Mitral valve replacement. Lungs: Stable elevation of the left hemidiaphragm. The lungs are clear. Bones: Degenerative changes are identified within the thoracic spine. Degenerative changes of the right shoulder. Other: RAD/Chest 1 View (Portable) IMPRESSION: No Acute Findings. Stable examination. Reading Location: [id number] CC: Dr. Ted Mtz MD; Dr. Husam Khan MD ~ 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: Signed [facility]09-04-2025 Radiology Diagnostic study note [facility] Imaging Services [address] [place], [place] [id number] CTA Abd w/Runoff W/WO Contrast MR#: [id number] Acct: [id number] Name: ELIAS SHAH Rep #: [id number] 2 : 1940 M 85 From: Kj Curtis MD PCP: Dr. Husam Khan MD Status: REG E R Study:CTA Abd w/Runoff W/WO Contrast Date of Exam: 07/27/25 Exam# [id number] Ordering Dr: Neymar Medrano DO PROCEDURE: CTA [...] popliteal pseudoaneurysm present which measures 2.4 x 2.2cm. Pseudoaneurysm was described in the clinical history. [...] the superficial femoral arteries bilaterally. Prominent pseudoaneurysm involvingthe right popliteal artery with surrounding hematoma. Pseudoaneurysm was mentioned in the clinical history. Reading Location: [id number] CC: Dr. Ilana Medrano DO; Dr. 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 May 22, 2025 10:17am History of aortic valve replacement with bioprosthetic valve June, acute June 22, 2025 9:53am Coronary artery disease chronic J luis fernando2024 9:53am Essential (primary) hypertension chronic June 22, 2025 9:53am Hyperlipidemia chronic June 22, 2025 9:53am History of coronary artery bypass surgery June, resolved June 22, 2025 9:53am [facility] Work Phone: 1(806) 676-708506-30-2025 Evaluation note* Diagnosis Onset Date Resolution Status Admit Date Iron deficiency anemia due t o chronic blood loss chronic May 22 10:17am 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 May 222024 10:17am History of aortic valve replacement with bioprosthetic valve June, acute June 22, 025 9:53am Coronary artery disease chronic J 2024 9:53am Essential (primary) hypertension chronic June 22, 2025 9:53am Hyperlipidemia chronic June 22, 2025 9:53am History of coronary artery bypass surgery June, resolved June 22, 2025 9:53am Pseudoaneurysm acute August 01, 2025 2:41pm [facility] Work Phone: 1(843) 996-908406-30-2025 Evaluation note* Diagnosis Onset Date Resolution Status Admit Date Iron deficiency anemia due t o chronic blood loss chronic May 22 10:17am 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 May 222024 10:17am History of aortic valve replacement with bioprosthetic valve June, acute June 22, 025 9:53am Coronary artery disease chronic J 2024 9:53am Essential (primary) hypertension chronic June 22, 2025 9:53am Hyperlipidemia chronic June 22, 2025 9:53am History of coronary artery bypass surgery June, resolved June 22, 2025 9:53am Pseudoaneurysm inactive August 01, 2025 2:41pm [facility] Work Phone: 1(636) 888-642606-30-2025 Evaluation note* Diagnosis Onset Date Resolution Status Admit Date Iron deficiency anemia due t o chronic blood loss chronic May 22 10:17am 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 May 222024 10:17am History of aortic valve replacement with bioprosthetic valve June, acute June 22, 2 025 9:53am Coronary artery disease chronic J 2024 9:53am Essential (primary) hypertension chronic June 22, 2025 9:53am Hyperlipidemia chronic June 22, 2025 9:53am History of coronary artery bypass surgery June, resolved June 22, 2025 9:53am Pseudoaneurysm inactive August 01, 2025 2:41pm MAURO (acute kidney injury) acute August 05, 2025 12:13pm Debility acute July 12:13pm Leg pain, right acute August 05, 2025 12:13pm [facility] Work Phone: 1(695) 756-922206-30-2025 Evaluation note* Diagnosis Onset Date Resolution Status Admit Date Iron deficiency anemia due t o chronic blood loss chronic May 22 10:17am 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 May 222024 10:17am History of aortic valve replacement with bioprosthetic valve June, acute June 22, 025 9:53am Coronary artery disease chronic 2024 9:53am Essential (primary) hypertension chronic June 22, 2025 9:53am Hyperlipidemia chronic June 22, 2025 9:53am History of coronary artery bypass surgery June, resolved June 22, 2025 9:53am Pseudoaneurysm inactive August 01, 2025 2:41pm MAURO (acute kidney injury) resolved August 05, 2025 12:13pm Debility inactive July 12:13pm Leg pain, right inactive August 05, 2025 12:13pm [facility] Work Phone: 1(771) 964-680006-30-2025 Evaluation note* Diagnosis Onset Date Resolution Status Admit Date Iron deficiency anemia due t o chronic blood loss chronic May 22 10:17am 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 May 222024 10:17am History of aortic valve replacement with bioprosthetic valve June, acute June 22, 2 025 9:53am Coronary artery disease chronic J 2024 9:53am Essential (primary) hypertension chronic June 22, 2025 9:53am Hyperlipidemia chronic June 22, 2025 9:53am History of coronary artery bypass surgery June, resolved June 22, 2025 9:53am Pseudoaneurysm inactive August 01, 2025 2:41pm MAURO (acute kidney injury) resolved August 05, 2025 12:13pm Debility inactive July 12:13pm Leg pain, right inactive August 05, 2025 12:13pm Aftercare following surgery of the circulatory system acute Octobe r 2024 8:37am PAD (peripheral artery disease) acute August 24 8:37am Pseudoaneurysm inactive August 8:37am [facility] Work Phone: 1(866) 750-401008-01-2019 Evaluation note* Diagnosis Onset Date Resolution Status 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 June, acute Coronary artery disease air sampler alana Essential (primary) hypertension chronic GERD with esophagitis chroni c Hyperlipidemia chronic History of coronary artery bypass surgery June, resolved Iron deficiency anemia due to chronic blood loss 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) [facility] Work Phone: Evaluation note* Diagnosis Onset Date Resolution Status Iron deficiency anemia due to chronic blood loss 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 Atherosclerosis of coronary artery without angina pectoris chronic Essential (primary) hypertension chronic Hyperlipidemia chronic Paroxysmal atrial fibrillation chronic S/P aortic valve replacement with bioprosthetic valve July 04, 2019 chronic [facility] Work Phone: Evaluation noteNo assessment information available [facility] Work Phone: Evaluation note* Diagnosis Onset Date Resolution Status Iron deficiency anemia due to chronic blood loss 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) [facility] Work Phone: Evaluation note* Diagnosis Onset Date Resolution Status Admit Date Iron deficiency anemia due t o chronic blood loss chronic May 22 10:17am 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 May 22, 2025 10:17am [facility] Work Phone: Reason for referral (narrative)No reason for referral [facility] Work [facility]: Summary Purpose Family History No Family History Records Found Relationship Condition Age at Onset Recorded Date/T samina father Malignant neoplasm Unknown Malignant neoplasm of lung Unknown sister Malignant neoplasm Unknown Malignant neoplasm of breast Unknown Malignant neoplasm of pancreas Unknown Advance Directives No Advanced Directives Records Found Advance Directive Response Recorded Date/ Time Advance Directives No March 02 9:11am Living Will Yes August 20, 2019 7:58am Power of Technician Support Engineer Yes July 7:58am Advance Directive Response Recorded Date/ Time Advance Directives No March 02 8:11am Living Will Yes August 20, 2019 6:58am Power of Technician Support Engineer Yes July 6:58am Advance Directive Response Recorded Date/ Time Advance Directives No March 02 9:11am Advance Directive Response Recorded Date/ Time Living Will Yes August 20, 2019 7:58am Do you have a Healthcare Power of Technician Support Engineer? Yes August 20, 2019 7:58am Advance Directives No March 02 9:11am Advance Directive Response Recorded Date/ Time Living Will Yes August 20, 2019 7:58am Do you have a Healthcare Power of Technician Support Engineer? Yes August 20, 2019 7:58am Do you have a Healthcare Power of Technician Support Engineer? Yes July 27, 2025 3:40pm Advance Directives No March 02 9:11am Advance Directive Response Recorded Date/ Time Living Will Yes August 20, 2019 7:58am Do you have a Healthcare Power of Technician Support Engineer? Yes August 20, 2019 7:58am Do you have a Healthcare Power of Technician Support Engineer? Yes July 27, 2025 3:40pm Advance Directives Yes July 8:30am Advance Directive Response Recorded Date/ Time Living Will Yes August 20, 2019 7:58am Do you have a Healthcare Power of Technician Support Engineer? Yes August 20, 2019 7:58am Do you have a Healthcare Power of Technician Support Engineer? Yes July 27, 2025 3:40pm Advance Directives on File No Sept [id number] 7:05am Living Will Yes August 02, 2025 7:05am Do you have a Healthcare Power of Technician Support Engineer? Yes August 02, 2025 7:05am Name of Medical Power of Technician Support Engineer amalia [email or web address] August 02, 2025 7:05am Advance Directives Yes July 7:05am Advance Directive Response Recorded Date/ Time Living Will Yes August 20, 2019 7:58am Do you have a Healthcare Power of Technician Support Engineer? Yes August 20, 2019 7:58am Do you have a Healthcare Power of Technician Support Engineer? No August 04, 2025 11:48am Do you have a Healthcare Power of Technician Support Engineer? Yes July 27, 2025 3:40pm Advance Directives on File No Jean cristine 2024 7:05am Living Will Yes August 02, 2025 7:05am Do you have a Healthcare Power of Technician Support Engineer? Yes August 02, 2025 7:05am Name of Medical Power of Technician Support Engineer amalia sera August 02, 2025 7:05am Advance Directives Yes July 7:05am Advance Directive Response Recorded Date/ Time Living Will Yes August 20, 2019 7:58am Do you have a Healthcare Power of Technician Support Engineer? Yes August 20, 2019 7:58am Do you have a Healthcare Power of Technician Support Engineer? No August 04, 2025 5:54pm Do you have a Healthcare Power of Technician Support Engineer? Yes July 27, 2025 3:40pm Advance Directives on File No Jean colunga 2024 7:05am Living Will Yes August 02, 2025 7:05am Do you have a Healthcare Power of Technician Support Engineer? Yes August 02, 2025 7:05am Name of Medical Power of Technician Support Engineer amalia sera August 02, 2025 7:05am Advance Directives Yes July 7:05am Hospital Course Note Discharge Summary Elias vaz [...] a 78 y.o. male who presented to [facility] on 12/04/2018 with an incarcerated, strangulated hernia. He went to the OR urgently for diagnostic lap, which converted to open exploratory laparotomy when the bowel was noted to be nonviable. The diseased segment was resected and the bowel reanastomosed. Post-operatively he was transferred t (more content not included)... Note HNO ID: [id number] Author: Jerel Millan (Pa) Service: Cardiovascular Surgery Author Type: Physician Die Tripper Type: Discharge Summary Filed: 07/13/2019 4:08 PM [...] (more content not included)... Note HNO ID: [id number] Author: Leah Peñaloza Service: Hospital Medicine Author [...] (more content not included)... Note HNO ID: [id number] Author: Jerel Millan (Pa) Service: Cardiovascular Surgery Author Type: Physician Die Tripper Type: Procedures Filed: 07/11/2019 3:42 PM Note [...] PAGER/CONTACT #: Procedure Findings Note HNO ID: [id number] Author: Jerel Millan (Pa) Service: Cardiovascular Surgery Author Type: Physician Die Tripper Type: Procedures Filed: 07/11/2019 3:42 PM Note [...] 2:21pm Pre op August 01, 2025 2:41pm Chief Complaint Admit Date LABS May 04, 2025 3:34 pm 1YR LABS PRIOR May 22, 2025 10:1 7am Overdue 1 Y FU June 22, 2025 9:53 am Localized edema July 27, 2025 12:52pm 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 July 27, 2025 2:21pm Pre op August 01, 2025 2:41pm RIGHT LOWER August 02, 2025 6:45am Reason for Visit Admit Date Iron deficiency anemia due to chronic bl ood loss May 22, 2025 10:17am 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) May 22, 2025 10:17am 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 June 22, 2025 9:53am Coronary artery disease June 22, 2025 9:53am Essential (primary) hypertension June 222024 9:53am Hyperlipidemia June 22, 2025 9:53 am History of coronary artery bypass surger y June 22, 2025 9:53am Pseudoaneurysm August 01, 2025 2:41pm Chief Complaint Admit Date LABS May 04, 2025 3:34 pm 1YR LABS PRIOR May 22, 2025 10:1 7am Overdue 1 Y FU June 22, 2025 9:53 am Localized edema July 27, 2025 12:52pm 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 July 27, 2025 2:21pm Pre op August 01, 2025 2:41pm RIGHT LOWER August 02, 2025 6:45am RIGHT LOWER August 02, 2025 6:07pm weakness August 04, 2025 11:42am Chief Complaint Admit Date LABS May 04, 2025 3:34 pm 1YR LABS PRIOR May 22, 2025 10:1 7am Overdue 1 Y FU June 22, 2025 9:53 am Localized edema July 27, 2025 12:52pm 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 July 27, 2025 2:21pm Pre op August 01, 2025 2:41pm RIGHT LOWER August 02, 2025 6:45am RIGHT LOWER August 02, 2025 6:07pm WEAKNESS, MAURO, RECENT POPLITEAL PSEUDOAN EURYSM August 04, 2025 4:11pm Chief Complaint Admit Date LABS May 04, 2025 3:34 pm 1YR LABS PRIOR May 22, 2025 10:1 7am Overdue 1 Y FU June 22, 2025 9:53 am Localized edema July 27, 2025 12:52pm 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 July 27, 2025 2:21pm Pre op August 01, 2025 2:41pm RIGHT LOWER August 02, 2025 6:45am RIGHT LOWER August 02, 2025 6:07pm WEAKNESS, MAURO, RECENT POPLITEAL PSEUDOAN EURYSM August 04, 2025 4:11pm WEAKNESS, MAURO, RECENT POPLITEAL PSEUDOAN EURYSM August 05, 2025 12:13pm WEAKNESS, MAURO, RECENT POPLITEAL PSEUDOAN EURYSM August 05, 2025 3:05pm WEAKNESS, MAURO, RECENT POPLITEAL PSEUDOAN EURYSM August 06, 2025 7:39am Reason for Visit Admit Date Iron deficiency anemia due to chronic bl ood loss May 22, 2025 10:17am 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) May 22, 2025 10:17am 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 June 22, 2025 9:53am Coronary artery disease June 22, 2025 9:53am Essential (primary) hypertension June 222024 9:53am Hyperlipidemia June 22, 2025 9:53 am History of coronary artery bypass surger y June 22, 2025 9:53am Pseudoaneurysm August 01, 2025 2:41pm MAURO (acute kidney injury) July 12:13pm Debility August 05, 2025 12:13pm Leg pain, right August 05, 2025 12:13pm Chief Complaint Admit Date LABS May 04, 2025 3:34 pm 1YR LABS PRIOR May 22, 2025 10:1 7am Overdue 1 Y FU June 22, 2025 9:53 am Localized edema July 27, 2025 12:52pm 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 July 27, 2025 2:21pm Pre op August 01, 2025 2:41pm RIGHT LOWER August 02, 2025 6:45am RIGHT LOWER August 02, 2025 6:07pm WEAKNESS, MAURO, RECENT POPLITEAL PSEUDOAN EURYSM August 04, 2025 4:11pm WEAKNESS, MAURO, RECENT POPLITEAL PSEUDOAN EURYSM August 05, 2025 12:13pm WEAKNESS, MAURO, RECENT POPLITEAL PSEUDOAN EURYSM August 05, 2025 3:05pm WEAKNESS, MAURO, RECENT POPLITEAL PSEUDOAN EURYSM August 06, 2025 7:39am WEAKNESS, MAURO, RECENT POPLITEAL PSEUDOAN EURYSM August 07, 2025 1:58pm WEAKNESS, MAURO, RECENT POPLITEAL PSEUDOAN EURYSM August 08, 2025 10:32am Chief Complaint Admit Date LABS May 04, 2025 3:34 pm 1YR LABS PRIOR May 22, 2025 10:1 7am Overdue 1 Y FU June 22, 2025 9:53 am Localized edema July 27, 2025 12:52pm 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 July 27, 2025 2:21pm Pre op August 01, 2025 2:41pm RIGHT LOWER August 02, 2025 6:45am RIGHT LOWER August 02, 2025 6:07pm WEAKNESS, MAURO, RECENT POPLITEAL PSEUDOAN EURYSM August 04, 2025 4:11pm WEAKNESS, MAURO, RECENT POPLITEAL PSEUDOAN EURYSM August 05, 2025 12:13pm WEAKNESS, MAURO, RECENT POPLITEAL PSEUDOAN EURYSM August 05, 2025 3:05pm WEAKNESS, MAURO, RECENT POPLITEAL PSEUDOAN EURYSM August 06, 2025 7:39am WEAKNESS, MAURO, RECENT POPLITEAL PSEUDOAN EURYSM August 07, 2025 1:58pm WEAKNESS, MAURO, RECENT POPLITEAL PSEUDOAN EURYSM August 08, 2025 10:32am murmur August 11, 2025 1:14pm Chief Complaint Admit Date LABS May 04, 2025 3:34 pm 1YR LABS PRIOR May 22, 2025 10:1 7am Overdue 1 Y FU June 22, 2025 9:53 am Localized edema July 27, 2025 12:52pm 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 July 27, 2025 2:21pm Pre op August 01, 2025 2:41pm RIGHT LOWER August 02, 2025 6:45am RIGHT LOWER August 02, 2025 6:07pm WEAKNESS, MAURO, RECENT POPLITEAL PSEUDOAN EURYSM August 04, 2025 4:11pm WEAKNESS, MAURO, RECENT POPLITEAL PSEUDOAN EURYSM August 05, 2025 12:13pm WEAKNESS, MAURO, RECENT POPLITEAL PSEUDOAN EURYSM August 05, 2025 3:05pm WEAKNESS, MAURO, RECENT POPLITEAL PSEUDOAN EURYSM August 06, 2025 7:39am WEAKNESS, MAURO, RECENT POPLITEAL PSEUDOAN EURYSM August 07, 2025 1:58pm WEAKNESS, MUARO, RECENT POPLITEAL PSEUDOAN EURYSM August 08, 2025 10:32am murmur August 11, 2025 1:14pm Post Aortogram 2-4 WK FU August 24 8:37am Chief Complaint Admit Date LABS May 04, 2025 3:34 pm 1YR LABS PRIOR May 22, 2025 10:1 7am Overdue 1 Y FU June 22, 2025 9:53 am Localized edema July 27, 2025 12:52pm 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 July 27, 2025 2:21pm Pre op August 01, 2025 2:41pm RIGHT LOWER August 02, 2025 6:45am RIGHT LOWER August 02, 2025 6:07pm WEAKNESS, MAURO, RECENT POPLITEAL PSEUDOAN EURYSM August 04, 2025 4:11pm WEAKNESS, MAURO, RECENT POPLITEAL PSEUDOAN EURYSM August 05, 2025 12:13pm WEAKNESS, MAURO, RECENT POPLITEAL PSEUDOAN EURYSM August 05, 2025 3:05pm WEAKNESS, MAURO, RECENT POPLITEAL PSEUDOAN EURYSM August 06, 2025 7:39am WEAKNESS, MAURO, RECENT POPLITEAL PSEUDOAN EURYSM August 07, 2025 1:58pm WEAKNESS, MAURO, RECENT POPLITEAL PSEUDOAN EURYSM August 08, 2025 10:32am LAB WORK August 09, 2025 6:20am murmur August 11, 2025 1:14pm LAB WORK August 16, 2025 6:30am Post Aortogram 2-4 WK FU August 24 8:37am 1 UNIT PRBC August 24, 2025 9: 28am Reason for Visit Admit Date Iron deficiency anemia due to chronic bl ood loss May 22, 2025 10:17am 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) May 22, 2025 10:17am 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 June 22, 2025 9:53am Coronary artery disease June 22, 2025 9:53am Essential (primary) hypertension June 222024 9:53am Hyperlipidemia June 22, 2025 9:53 am History of coronary artery bypass surger y June 22, 2025 9:53am Pseudoaneurysm August 01, 2025 2:41pm MAURO (acute kidney injury) July 12:13pm Debility August 05, 2025 12:13pm Leg pain, right August 05, 2025 12:13pm Aftercare following surgery of the circu latory system August 24, 2025 8:37am PAD (peripheral artery disease) August 24, 2025 8:37am Pseudoaneurysm August 24, 2025 8: 37am Additional Source Comments (unrecognized sect ion and content) No Status Records FoundNo Status Records FoundNo Status Records Found INFORMATION SOURCE (unrecogn ized section and content) DATE CREATED AUTHOR 01/11/2019 [facility] DATE CREATED AUTHOR AUTHOR'S ORGANIZ ATION 09/19/2019 [facility] DATE CREATED AUTHOR AUTHOR'S ORGANIZ ATION 09/17/2025 [facility] Goals (unrecognized section and content) Goals [...] 2025 End: June 22, 2025 Dr. Husam hKan MD Referring Provider Active Start: June 22, 2025 End: June 22, 2025 La Hernández PA, PA Attending Provider Active Start: June 22, [...] August 01, 2025 End: August 01, 2025 Team Status: Inactive Member Role/Relationship Status Dates Dr. Husam Khan MD Primary Care Provider Active Start: August 02, 2025 End: August 02, 2025 Dr. Channing Mckeon MD Attending Provider Active S tart: August 02, 2025 End: August 02, 2025 Dr. Channing Mckeon MD Referring Provider Active S tart: August 02, 2025 End: August 02, 2025 Team Status: Inactive Member Role/Relationship Status Dates Dr. Husam Khan MD Primary Care Provider Active Start: July 26, 2025 End: July 26, 2025 Dr. Husam Khan MD Attending Provider Active Start: July 26, 2025 End: July 26, 2025 Team Status: Active Member Role/Relationship Status Dates Dr. Husam Khan MD Primary Care Provider Active Start: August 02, 2025 Dr. Channing Mckeon MD Attending Provider Active S tart: August 02, 2025 Dr. Channing Mckeon MD Referring Provider Active S tart: August 02, 2025 Dr. Channing Mckeon MD Other Provider Active Start : August 02, 2025 Team Status: Active Member Role/Relationship Status Dates Dr. Husam Khan MD Primary Care Provider Active Start: August 04, 2025 Dr. Ted Mtz MD Emergency Provider Active Start: August 04, 2025 Team Status: Active Member Role/Relationship Status Dates Dr. Husam Khan MD Primary Care Provider Active Start: August 04, 2025 Dr. Ted Mtz MD Emergency Provider Active Start: August 04, 2025 Dr. Morgan Dubon DO Admit Provider Active Start: August 04, 2025 Dr. Morgan Dubon DO Attending Provider Active Start: August 04, 2025 Team Status: Inactive Member Role/Relationship Status Dates Dr. Husam Khan MD Primary Care Provider Active Start: July 27, 2025 End: July 27, 2025 Dr. Husam Khan MD Attending Provider Active Start: July 27, 2025 End: July 27, 2025 Dr. Husam Khan MD Referring Provider Active Start: July 27, 2025 End: July 27, 2025 Team Status: Active Member Role/Relationship Status Dates Dr. Husam Khan MD Primary Care Provider Active Start: August 04, 2025 Dr. Ted Mtz MD Emergency Provider Active Start: August 04, 2025 Dr. Morgan Dubon DO Admit Provider Active Start: August 04, 2025 Dr. Morgan Dubon DO Attending Provider Active Start: August 04, 2025 Dr. Morgan Dubon DO Other Provider Active Start: August 04, 2025 Team Status: Active Member Role/Relationship Status Dates Dr. Husam Khan MD Primary Care Provider Active Start: August 05, 2025 Dr. Ted Mtz MD Emergency Provider Active Start: August 05, 2025 Dr. Morgan Dubon DO Admit Provider Active Start: August 05, 2025 Dr. Morgan Dubon DO Other Provider Active Start: August 05, 2025 Dr. Pedro Banegas MD Attending Provider Active Start: August 05, 2025 Dr. Jim Adams MD Other Provider Active Start: August 05, 2025 Team Status: Active Member Role/Relationship Status Dates Dr. Husam Khan MD Primary Care Provider Active Start: August 05, 2025 Dr. Ted Mtz MD Emergency Provider Active Start: August 05, 2025 Dr. Morgan Dubon DO Admit Provider Active Start: August 05, 2025 Dr. Morgan Dubon DO Other Provider Active Start: August 05, 2025 Dr. Jim Adams MD Attending Provider Active Start: August 05, 2025 Dr. Jim Adams MD Other Provider Active Start: August 05, 2025 Team Status: Active Member Role/Relationship Status Dates Dr. Husam Khan MD Primary Care Provider Active Start: August 06, 2025 Dr. Ted Mtz MD Emergency Provider Active Start: August 06, 2025 Dr. Morgan Dubon DO Admit Provider Active Start: August 06, 2025 Dr. Morgan Dubon DO Other Provider Active Start: August 06, 2025 Dr. Pedro Banegas MD Attending Provider Active Start: August 06, 2025 Dr. Pedro Banegas MD Other Provider Active Sta rt: August 06, 2025 Dr. Jim Adams MD Other Provider Active Start: August 06, 2025 Team Status: Inactive Member Role/Relationship Status Dates Dr. Husam Khan MD Primary Care Provider Active Start: August 05, 2025 End: August 08, 2025 Dr. Ted Mtz MD Emergency Provider Active Start: August 05, 2025 End: August 08, 2025 Dr. Morgan Dubon DO Admit Provider Active Start: August 05, 2025 End: August 08, 2025 Dr. Morgan Dubon DO Other Provider Active Start: August 05, 2025 End: August 08, 2025 Dr. Pedro Banegas MD Attending Provider Active Start: August 05, 2025 End: August 08, 2025 Dr. Jim Adams MD Other Provider Active Start: August 05, 2025 End: August 08, 2025 Team Status: Active Member Role/Relationship Status Dates Dr. Husam Khan MD Primary Care Provider Active Start: August 07, 2025 Dr. Ted Mtz MD Emergency Provider Active Start: August 07, 2025 Dr. Morgan Dubon DO Admit Provider Active Start: August 07, 2025 Dr. Morgan Dubon DO Other Provider Active Start: August 07, 2025 Dr. Pedro Banegas MD Attending Provider Active Start: August 07, 2025 Dr. Pedro Banegas MD Other Provider Active Sta rt: August 07, 2025 Dr. Jim Adams MD Other Provider Active Start: August 07, 2025 Team Status: Active Member Role/Relationship Status Dates Dr. Husam Khan MD Primary Care Provider Active Start: August 08, 2025 Dr. Ted Mtz MD Emergency Provider Active Start: August 08, 2025 Dr. Morgan Dubon DO Admit Provider Active Start: August 08, 2025 Dr. Morgan Dubon DO Other Provider Active Start: August 08, 2025 Dr. Pedro Banegas MD Attending Provider Active Start: August 08, 2025 Dr. Pedro Banegas MD Other Provider Active Sta rt: August 08, 2025 Dr. Jim Adams MD Other Provider Active Start: August 08, 2025 Team Status: Active Member Role/Relationship Status Dates Dr. Husam Khan MD Primary care physician Active Team Status: Active Member Role/Relationship Status Dates Dr. Geoffrey Garza MD Attending physician Active Start: May 04, 2025 Dr. Geoffrey Garza MD Referring Provider Active Start: May 04, 2025 Dr. Husam Khan MD Primary care physician Active Start: May 04, 2025 Team Status: Inactive Member Role/Relationship Status Dates Dr. Husam Khan MD Primary care physician Active Start: May 22, 2025 End: May 22, 2025 Dr. Husam Khan MD Referring Provider Active Start: May 22, 2025 End: May 22, 2025 Dr. Geoffrey Garza MD Attending physician Active Start: May 22, 2025 End: May 22, 2025 Team Status: Inactive Member Role/Relationship Status Dates Dr. Husam Khan MD Primary care physician Active Start: June 22, 2025 End: June 22, 2025 Dr. Husam Khan MD Referring Provider Active Start: June 22, 2025 End: June 22, 2025 La Hernández PA, PA Attending physician Active Start: June 22, 2025 End: June 22, 2025 Team Status: Inactive Member Role/Relationship Status Dates Dr. Husam Khan MD Primary care physician Active Start: July 26, 2025 End: July 26, 2025 Dr. Husam Khan MD Attending physician Active Start: July 26, 2025 End: July 26, 2025 Team Status: Inactive Member Role/Relationship Status Dates Dr. Husam Khan MD Primary care physician Active Start: July 27, 2025 End: July 27, 2025 Dr. Husam Khan MD Attending physician Active Start: July 27, 2025 End: July 27, 2025 Dr. Husam Khan MD Referring Provider Active Start: July 27, 2025 End: July 27, 2025 Team Status: Active Member Role/Relationship Status Dates Dr. Husam Khan MD Primary care physician Active Start: July 27, 2025 Dr. Husam Khan MD Referring Provider Active Start: July 27, 2025 Dr. Channing Mckeon MD Attending physician Active Start: July 27, 2025 Team Status: Inactive Member Role/Relationship Status Dates Dr. Husam Khan MD Primary care physician Active Start: July 27, 2025 End: July 27, 2025 Dr. Ilana Medrano DO Attending physician Active Start: July 27, 2025 End: July 27, 2025 Dr. Ilana Medrano DO Emergency Depart ent Physician Active Start: July 27, 2025 End: July 27, 2025 Team Status: Inactive Member Role/Relationship Status Dates Dr. Husam Khan MD Primary care physician Active Start: August 01, 2025 End: August 01, 2025 Dr. Husam Khan MD Referring Provider Active Start: August 01, 2025 End: August 01, 2025 Dr. Channing Mckeon MD Attending physician Active Start: August 01, 2025 End: August 01, 2025 Team Status: Inactive Member Role/Relationship Status Dates Dr. Husam Khan MD Primary care physician Active Start: August 02, 2025 End: August 02, 2025 Dr. Channing Mckeon MD Attending physician Active Start: August 02, 2025 End: August 02, 2025 Dr. Channing Mckeon MD Referring Provider Active S tart: August 02, 2025 End: August 02, 2025 Team Status: Active Member Role/Relationship Status Dates Dr. Husam Khan MD Primary care physician Active Start: August 02, 2025 Dr. Channing Mckeon MD Attending physician Active Start: August 02, 2025 Dr. Channing Mckeon MD Referring Provider Active S tart: August 02, 2025 Dr. Channing Mckoen MD Nurse Practitioner Active S tart: August 02, 2025 Team Status: Active Member Role/Relationship Status Dates Dr. Husam Khan MD Primary care physician Active Start: August 04, 2025 Dr. Ted Mtz MD Emergency Depart ment Physician Active Start: August 04, 2025 Dr. Morgan Dubon DO Admitting physician Active Start: July Dr. Morgan Dubon DO Attending physician Active Start: July Dr. Morgan Dubon DO Nurse Practitioner Active Start: July Team Status: Inactive Member Role/Relationship Status Dates Dr. Husam Khan MD Primary care physician Active Start: August 05, 2025 End: August 08, 2025 Dr. Ted Mtz MD Emergency Depart ment Physician Active Start: August 05, 2025 End: August 08, 2025 Dr. Morgan Dubon DO Admitting physician Active Start: July End: August 08, 2025 Dr. Morgan Dubon DO Nurse Practitioner Active Start: July End: August 08, 2025 Dr. Pedro Banegas MD Attending physician Active Start: August 05, 2025 End: August 08, 2025 Dr. Jim Adams MD Nurse Practitioner Active Start: July End: August 08, 2025 Team Status: Active Member Role/Relationship Status Dates Dr. Husam Khan MD Primary care physician Active Start: August 05, 2025 Dr. Ted Mtz MD Emergency Depart ment Physician Active Start: August 05, 2025 Dr. Morgan Dubon DO Admitting physician Active Start: July Dr. Morgan Dubon DO Nurse Practitioner Active Start: July Dr. Jim Adams MD Attending physician Active Start: July Dr. Jmi Adams MD Nurse Practitioner Active Start: July Team Status: Active Member Role/Relationship Status Dates Dr. Husam Khan MD Primary care physician Active Start: August 06, 2025 Dr. Ted Mtz MD Emergency Depart ment Physician Active Start: August 06, 2025 Dr. Morgan Dubon DO Admitting physician Active Start: July Dr. Morgan Dubon DO Nurse Practitioner Active Start: July Dr. Pedro Banegas MD Attending physician Active Start: August 06, 2025 Dr. Pedro Banegas MD Nurse Practitioner Active Start: August 06, 2025 Dr. Jim Adams MD Nurse Practitioner Active Start: July Team Status: Active Member Role/Relationship Status Dates Dr. Husam Khan MD Primary care physician Active Start: August 07, 2025 Dr. Ted Mtz MD Emergency Depart ment Physician Active Start: August 07, 2025 Dr. Morgan Dubon DO Admitting physician Active Start: July Dr. Morgan Dubon DO Nurse Practitioner Active Start: July Dr. Pedro Banegas MD Attending physician Active Start: August 07, 2025 Dr. Pedro Banegas MD Nurse Practitioner Active Start: August 07, 2025 Dr. Jim Adams MD Nurse Practitioner Active Start: July Team Status: Active Member Role/Relationship Status Dates Dr. Husam Khan MD Primary care physician Active Start: August 08, 2025 Dr. Ted Mtz MD Emergency Depart ment Physician Active Start: August 08, 2025 Dr. Morgan Dubon DO Admitting physician Active Start: July Dr. Morgan Dubon DO Nurse Practitioner Active Start: July Dr. Pedro Banegas MD Attending physician Active Start: August 08, 2025 Dr. Pedro Banegas MD Nurse Practitioner Active Start: August 08, 2025 Dr. Jim Adams MD Nurse Practitioner Active Start: July Team Status: Active Member Role/Relationship Status Dates Dr. Husam Khan MD Primary care physician Active Start: August 09, 2025 Trixie BACON MD Attending physician Active Start: August 09, 2025 Team Status: Inactive Member Role/Relationship Status Dates Dr. Husam Khan MD Primary care physician Active Start: August 11, 2025 End: August 11, 2025 La MCCRAY PA Attending physician Active Start: August 11, 2025 End: August 11, 2025 La MCCRAY PA Referring Provider Active Start: August 11, 2025 End: August 11, 2025 Dr. Trixie Pang MD Nurse Practitioner Active Start: August 11, 2025 End: August 11, 2025 Team Status: Active Member Role/Relationship Status Dates Dr. Husam Khan MD Primary care physician Active Start: August 11, 2025 Dr. Kenan Santamaria MD Attending physician Active Start: August 11, 2025 Team Status: Active Member Role/Relationship Status Dates Dr. Husam Khan MD Primary care physician Active Start: August 16, 2025 Trixie BACON MD Attending physician Active Start: August 16, 2025 Team Status: Active Member Role/Relationship Status Dates Dr. Husam Khan MD Primary care physician Active Start: August 23, 2025 Trixie BACON MD Attending physician Active Start: August 23, 2025 Team Status: Inactive Member Role/Relationship Status Dates Dr. Husam Khan MD Primary care physician Active Start: August 24, 2025 End: August 24, 2025 Dr. Husam Khan MD Referring Provider Active Start: August 24, 2025 End: August 24, 2025 MAHENDRA Palma Attending physician Active Sta rt: August 24, 2025 End: August 24, 2025 Team Status: Inactive Member Role/Relationship Status Dates Dr. Husam Khan MD Primary care physician Active Start: August 24, 2025 End: August 24, 2025 Serene Dubois NP, NP-C Attending physician Active Start: August 24, 2025 End: August 24, 2025 Serene Dubois NP, NP-C Referring Provider Active Start: August 24, 2025 End: August 24, 2025 FOR RECORDS PERTAINING TO PATIENTS WHO [...] BE BASED ON THE PRIMARY CLINICAL RECORDS. [facility] [employer] [facility]. provides no warranty or guarantee of the accuracy or completeness of information in this document.
--- OUTSIDE RECORDS SUMMARY | 2025-09-18 03:35 | XMS RPT_ITS | CCD ---
Author Organization [facility] Care Team Providers [place] Supervisor Name Role Phone VALDEZ LANDIS Referring Unavailable [...] LAGOS, Dr. Preciado Emergency Department Physi patricia Mkie ZAMARRIPA, Dr. Snell Referring Provider Mike ZAMARRIPA, Dr. Snell Nurse Practitioner Kd ZAMARRIPA, Dr. Jean Emergency Department Phys ician Ling LAGOS, Dr. Mora Admitting Physician Ling LAGOS, Dr. Mora Attending [...] Attending Physician Venecia Qureshi Attending Physician Silvino FOREST RANGER TECHNICIAN-C, Serene Attending Physician Tickton FOREST RANGER TECHNICIAN-C, Serene Referring Provider Trixie Askew Attending Unavailabl e Bill, Husam Chi Primary Care Unavailable Morgan Dubon Admitting Unavailable Pedro Banegas Attending Unavailable Bill, Husam Chi Primary Care Unavailable Morgan Dubon Consulting Unavailable Jim Adams Consulting Unavailable Bill, Husam Chi Primary Care Unavailable Valdez Angel Attending Unavailable Bill, Husam Chi Primary Care Unavailable Venecia Villar Attending Unavailable Venecia Villar Referring Unavailable Tickton FOREST RANGER TECHNICIANSerene Attending Unavailable Tickton FOREST RANGER TECHNICIAN, Serene Referring Unavailable Bill, Husam Chi Primary Care Unavailable Morgan Dubon Admitting Unavailable Bill, Husam Chi Primary Care Unavailable Morgan Dubon Consulting Unavailable Morgan Dubon Attending Unavailable Bill, Husam Chi Referring Unavailable Bill, Husam Chi Primary Care Unavailable IsckarusLeroyour Attending Unavailable Vanderpool, Channing Attending Unavailable Bill, Husam Chi Referring Unavailable Bill, Husam Chi Primary Care Unavailable Vanderpool, Channing Attending Unavailable Mike, Channing Referring Unavailable Vanderpool, Channing Consulting Unavailable Bill, Husam Chi Primary [...] Consulting Unavailable Bassam, Pedro Consulting Unavailable Jim Aadms Attending Unavailable Oleghe OLS, Efewongbe Attending Unavailabl [...] Primary Care Unavailable Villar, Venecia Referring Unavailable Vanderpool, Channing Attending Unavailable Bill, Husam Chi Referring Unavailable Bill, Husam Chi Primary Care Unavailable Bill, Husam Chi Referring Unavailable Bill, Husam Chi Primary Care Unavailable Villar Venecia Attending Unavailable Oleghe OLS, Efewongbe Attending Unavailabl e Bill, Husam Chi Primary Care Unavailable Bill, Husam Chi Referring Unavailable Bill, Husam Chi Primary Care Unavailable La Brennan Attending Unavail able Vanderpool, Channing Attending Unavailable Vanderpool, Channing Referring Unavailable Bill, Husam Chi Primary Care Unavailable Allergies Allergy Classification Reported Allergen(s) Allergy Type Date of Onset Reaction(s) Facility (20 sources) atorvastatin Drug Allergy 01-14-2022 Myalgias [facility] (1 source) atorvastatin Drug Allergy 08-24-2025 [facility] Repository Medications Current Medications Medication Drug Class(es) [...] 18, 2019 3:19pm Start: 07-13-2019 End: 07-28-2019 [id number] 200 actuat albuter ol 0.09 mg/actuat metered [...] 02-18-2021 docusate sodium 50 mg / sennosides, senior care 8.6 mg oral tablet (20 sources) Start: [...] 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 Start: 01-20-2019 End: 02-01-2019 QUEtiapine 25 mg oral tablet (20 sources) Atypical Antipsychotic Start: 02-18-2021 Vit C,O-Ji-Xhfmk-Lutei n-Zeaxan (Preservision Areds-2) 250-90-40-1 mg capsule (8 sources) Start: 06-22-2025 take 2 capsules by mouth twice daily Vit C,V-Mm-Svdgj-L utein-Zeaxan (Preservision Areds-2) 250-90-40-1 mg capsule Active [...] 20 mg/ml oral solution (20 sources) Uncompetitive I-vmvrgy-K-aspartate Receptor Antagonist, Sigma-1 Agonist Start: 07-28-2019 End: [...] Start: 09-01-2019 End: 10-17-2019 lactobacillus acidophilus 50 [id number] unt oral capsule (20 sources) Start: 07-13-2019 [...] 35 mm AtriCure clip on 07/04/2019 at [facility] with Dr. Rivers; Chronic kidney disease [...] hematuria). per Dr. 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 Rivers; Deficiency and other [...] hematuria). per Dr. Wayne Rivers 07/04/19 @ [facility] [address] [facility] c[facility] pericardial prosthesis per Dr. Wayne Rivers 07/04/19 @ [facility] Severe per echo 12/06 @ [facility] Mild per echo 9 done @ [facility] by Dr. José Miguel Gutierrez. No regurgitation. [...] 08-17-2019 Episodic Comment on above: Repaired at [facility] ty 12/04/18 Malaise and fatigue (20 sources) [...] Onset: 12-04-2018 07-13-2019 Episodic Comment on above: [facility] Coronary atherosclerosis and other heart disease [...] severe per R&LHC 4/10/19 [address] @ [facility] Results Test Name Value Interpretation Reference Range Facility Basic Metabolic Profile (BMP )on 09-13-2025 BUN Normal 4-19 [facility] Comment on above: Order Comment: 125.2 Result Comment: LABS WERE DONE 09/11 DOES NOT NEED REPEATED 09/13 PER NURSE JOSEP CASTILLO Performed By: #### L 503.6005 #### [facility] Laboratory [address] [place], [address] BUN/CRE Normal - [facility] Comment on above: Order Comment: 125.2 Result Comment: LABS WERE DONE 09/11 DOES NOT NEED REPEATED 09/13 PER NURSE FARAH AND DR CASTILLO Performed By: #### L 503.6005 #### [facility] [address] [place], [address] Calcium Normal 7.6-11.0 [facility] Comment on above: Order Comment: 125.2 Result Comment: LABS WERE DONE 09/11 DOES NOT NEED REPEATED 09/13 PER NURSE JOSEP CASTILLO Performed By: #### L 503.6005 #### [facility] [address] [place], [address] CL Normal 98-108 [facility] Comment on above: Order Comment: 125.2 Result Comment: LABS WERE DONE 09/11 DOES NOT NEED REPEATED / PER NURSE JOSEP CASTILLO Performed By: #### L 503.6005 #### [facility] [address] [place], [address] CO2 Normal 21.0-32.0 [facility] Comment on above: Order Comment: 125.2 Result Comment: LABS WERE DONE 09/11 DOES NOT NEED REPEATED / PER NURSE JOSEP CASTILLO Performed By: #### L 503.6005 #### [facility] [address] [place], [address] CREAT,SERUM Normal 0.70-1.20 [facility] Comment on above: Order Comment: 125.2 Result Comment: LABS WERE DONE 09/11 DOES NOT NEED REPEATED 10/22 PER NURSE FARAH AND DR CASTILLO Performed By: #### L 503.6005 #### [facility] [address] [place], [address] eGFR Normal >60 [facility] Comment on above: Order Comment: 125.2 Result Comment: LABS WERE DONE 09/11 DOES NOT NEED REPEATED 10/22 PER NURSE FARAH AND DR CASTILLO Performed By: #### L 503.6005 #### [facility] [address] [place], [address] GAP Normal 5-15 [facility] Comment on above: Order Comment: 125.2 Result Comment: LABS WERE DONE 09/11 DOES NOT NEED REPEATED 10/22 PER NURSE FARAH AND DR CASTILLO Performed By: #### L 503.6005 #### [facility] [address] [place], [address] GLU Normal 70-99 [facility] Comment on above: Order Comment: 125.2 Result Comment: LABS WERE DONE 09/11 DOES NOT NEED REPEATED 10/22 PER NURSE FARAH AND DR CASTILLO Performed By: #### L 503.6005 #### [facility] [address] [place], [address] Potassium Normal 3.3-5.1 [facility] Comment on above: Order Comment: 125.2 Result Comment: LABS WERE DONE 09/11 DOES NOT NEED REPEATED 10/22 PER NURSE JOSEP CASTILLO Performed By: #### L 503.6005 #### [facility] [address] [place], [address] Basic Metabolic Profile (BMP) Normal 133-145 [facility] Comment on above: Order Comment: 125.2 Result Comment: LABS WERE DONE 09/11 DOES NOT NEED REPEATED 10/22 PER NURSE JOSEP CASTILLO Performed By: #### L 503.6005 #### [facility] [address] [place], [address] CBC W/Diff, Automatedon 10-2 2-2025 Absolute Neut Normal 2.0-7.7 [facility] Comment on above: Order Comment: 125.2 Result Comment: LABS WERE DONE 09/11 DOES NOT NEED REPEATED 10/ PER NURSE FARAH AND DR CASTILLO Performed By: #### L 503.6005 #### [facility] [address] [place], [address] HCT Normal 40-54 [facility] Comment on above: Order Comment: 125.2 Result Comment: LABS WERE DONE 09/11 DOES NOT NEED REPEATED 10/22 PER NURSE FARAH AND DR CASTILLO Performed By: #### L 503.6005 #### [facility] [address] [place], [address] HGB Normal 13.0-16.5 [facility] Comment on above: Order Comment: 125.2 Result Comment: LABS WERE DONE 09/11 DOES NOT NEED REPEATED 10/22 PER NURSE FARAH AND DR CASTILLO Performed By: #### L 503.6005 #### [facility] [address] [place], [address] MCH Normal 27.0-32.0 [facility] Comment on above: Order Comment: 125.2 Result Comment: LABS WERE DONE 09/11 DOES NOT NEED REPEATED 10/22 PER NURSE JOSEP CATSILLO Performed By: #### L 503.6005 #### [facility] [address] [place], [address] MCHC Normal 32-36 [facility] Comment on above: Order Comment: 125.2 Result Comment: LABS WERE DONE 09/11 DOES NOT NEED REPEATED 10/22 PER NURSE JOSEP CASTILLO Performed By: #### L 503.6005 #### [facility] [address] [place], [address] MCV Normal 80-94 [facility] Comment on above: Order Comment: 125.2 Result Comment: LABS WERE DONE 09/11 DOES NOT NEED REPEATED 10/22 PER NURSE JOSEP CASTILLO Performed By: #### L 503.6005 #### [facility] [address] [place], [address] NEUT% Normal 47-70 [facility] Comment on above: Order Comment: 125.2 Result Comment: LABS WERE DONE 09/11 DOES NOT NEED REPEATED 10/22 PER NURSE FARAH AND DR CASTILLO Performed By: #### L 503.6005 #### [facility] [address] [place], [address] PLT Normal 150-450 [facility] Comment on above: Order Comment: 125.2 Result Comment: LABS WERE DONE 09/11 DOES NOT NEED REPEATED 10/22 PER NURSE FARAH AND DR CASTILLO Performed By: #### L 503.6005 #### [facility] [address] [place], [address] RBC Normal 4.6-6.2 [facility] Comment on above: Order Comment: 125.2 Result Comment: LABS WERE DONE 09/11 DOES NOT NEED REPEATED 10/22 PER NURSE JOSEP CASTILLO Performed By: #### L 503.6005 #### [facility] [address] [place], [address] RDW CV Normal 11.6-14.6 [facility] Comment on above: Order Comment: 125.2 Result Comment: LABS WERE DONE 09/11 DOES NOT NEED REPEATED 10/22 PER NURSE JOSEP CASTILLO Performed By: #### L 503.6005 #### [facility] [address] [place], [address] RDW SD Normal 35.1-43.9 [facility] Comment on above: Order Comment: 125.2 Result Comment: LABS WERE DONE 09/11 DOES NOT NEED REPEATED 10/22 PER NURSE JOSEP CASTILLO Performed By: #### L 503.6005 #### [facility] [address] [place], [address] WBC Normal 4.4-11.0 [facility] Comment on above: Order Comment: 125.2 Result Comment: LABS WERE DONE 09/11 DOES NOT NEED REPEATED 09/[address]SE GAGAN AND DR CASTILLO Performed By: #### L 503.6005 #### [facility] [address] [place], [address] Basic Metabolic Profile (BMP )on 09-11-2025 BUN/CRE 20.8 RATIO High 09-11 [facility] Comment on above: Order Comment: 125.2 Performed By: #### L 503.6005 #### [facility] [address] [place], [address] Calcium [Mass/Vol] 8.1 mg/dL Normal 7.6-11.0 [facility] Comment on above: Order Comment: 125.2 Performed By: #### L 503.6005 #### [facility] [address] [place], [address] Chloride [Moles/Vol] 101 mmol/L Normal 98-108 [facility] Comment on above: Order Comment: 125.2 Performed By: #### L 503.6005 #### [facility] [address] [place], [address] CO2 [Moles/Vol] 28.7 mmol/L Normal 21.0-32.0 [facility] Comment on above: Order Comment: 125.2 Performed By: #### L 503.6005 #### [facility] [address] [place], [address] Creatinine [Mass/Vol] 1.12 mg/dL Normal 0.70-1.20 [facility] Comment on above: Order Comment: 125.2 Performed By: #### L 503.6005 #### [facility] [address] [place], [address] GAP 10 Normal 5-15 [facility] Comment on above: Order Comment: 125.2 Performed By: #### L 503.6005 #### [facility] [address] [place], [address] GFR/1.73 sq M.predicted among non-blacks MDRD (S/P/Bld) [Vol rate/Area] 64 mL/min/{1.73_m2} Normal >60 [facility] Comment on above: Order Comment: 125.2 Result Comment: mL/m in/1.73m2 CKD-EPI Creatinine Equation (2020) Performed By: #### L 503.6005 #### [facility] [address] [place], [address] Glucose [Mass/Vol] 104 mg/dL High 70-99 [facility] Comment on above: Order Comment: 125.2 Performed By: #### L 503.6005 #### [facility] [address] [place], [address] Potassium [Moles/Vol] 3.7 mmol/L Normal 3.3-5.1 [facility] Comment on above: Order Comment: 125.2 Performed By: #### L 503.6005 #### [facility] [address] [place], [address] Sodium [Moles/Vol] 140 mmol/L Normal 133-145 [facility] Comment on above: Order Comment: 125.2 Performed By: #### L 503.6005 #### [facility] [address] [place], [address] Urea nitrogen [Mass/Vol] 23 mg/dL High 4-19 [facility] Comment on above: Order Comment: 125.2 Performed By: #### L 503.6005 #### [facility] [address] [place], [address] CBC-Complete Blood Cnt No Di ffon 09-11-2025 Erythrocyte distribution width (RBC) [Ratio] 18.6 % High 11.6-14.6 [facility] Comment on above: Order Comment: 125.2 Performed By: #### L 503.6005 #### [facility] [address] [place], [address] Hematocrit (Bld) [Volume fraction] 26.4 % Low 40-54 [facility] Comment on above: Order Comment: 125.2 Performed By: #### L 503.6005 #### [facility] [address] [place], [address] Hemoglobin (Bld) [Mass/Vol] 8.0 g/dL Low 13.0-16.5 [facility] Comment on above: Order Comment: 125.2 Performed By: #### L 503.6005 #### [facility] [address] [place], [address] MCH (RBC) [Entitic mass] 25.6 pg Low 27.0-32.0 [facility] Comment on above: Order Comment: 125.2 Performed By: #### L 503.6005 #### [facility] [address] [place], [address] MCHC (RBC) [Mass/Vol] 30.3 g/dL Low 32-36 [facility] Comment on above: Order Comment: 125.2 Performed By: #### L 503.6005 #### [facility] [address] [place], [address] MCV (RBC) [Entitic vol] 84.6 fL Normal 80-94 [facility] Comment on above: Order Comment: 125.2 Performed By: #### L 503.6005 #### [facility] [address] [place], [address] Platelet mean volume (Bld) [Entitic vol] 8.9 fL Normal 6.2-12.0 [facility] Comment on above: Order Comment: 125.2 Performed By: #### L 503.6005 #### [facility] [address] [place], [address] Platelets (Bld) [#/Vol] 229 10*3/uL Normal 150-450 [facility] Comment on above: Order Comment: 125.2 Performed By: #### L 503.6005 #### [facility] [address] [place], [address] RBC (Bld) [#/Vol] 3.12 10*6/uL Low 4.6-6.2 [facility] Comment on above: Order Comment: 125.2 Performed By: #### L 503.6005 #### [facility] [address] [place], [address] RDW SD 54.8 fl High 35.1-43.9 [facility] Comment on above: Order Comment: 125.2 Performed By: #### L 503.6005 #### [facility] [address] [place], [address] WBC (Bld) [#/Vol] 13.6 10*3/uL High 4.4-11.0 [facility] Comment on above: Order Comment: 125.2 Performed By: #### L 503.6005 #### [facility] [address] [place], [address] Ankle Brachial Indexon 09-01 Ankle Brachial Index [facility] [address] [place] [address] Ankle Brachial Index 09/01/25 1356 MR#: [id number] Acct: [id number] Name: ELIAS SHAH Rep #: [id number] : 1940 85 From: Channing Mckeon MD Attending Dr: MAHENDRA Palma Status: REG CLI Ordering Dr: Venecia Villar Date: 09/01/25 Location: [facility] Sex: M C Admitted: Reason For [...] Dictated: 09/01/25 1356 Date Transcribed: 09/04/25 1313 Mobile Home Set Up Person: Signed Normal [facility] Art Duplex Unilat Lower E xton 09-01-2025 US Art Duplex Unilat Lower Ext [facility] [address] [place] [address] US Art Duplex Unilat Lower Ext 09/01/25 1406 MR#: [id number] Acct: [id number] Name: ELIAS SHAH Rep #: [id number] : 1940 85 From: Channing Mckeon MD [...] Dictated: 09/01/25 1406 Date Transcribed: 09/04/25 1317 Mobile Home Set Up Person: Signed Normal [facility] BRCon 08-24-2025 Normal [facility] Comment on above: Result Comment: [id number] OP RC TRANSFUSED 08/24/25 0956 Performed By: #### L 100.0100, L500.2500 #### [facility] [address] [place], [address] MR/BMSArt 08-24-2025 /BMSSaraLeah [facility] [address] [facility] [address] [place] [address] OFFICE VISIT Date of Service: 08/24/25 MR#: [id number] Acct: [id number] Name: ELIAS SHAH Rep #: [id number] : 1940 Provider: MAHENDRA Palma Age/Sex: 85/M Location: [facility] Status: Signed Intake Vital Signs 07/27/25 14:22 [...] BID 06/22/25 08/24/25 His tory mg-copper 1 go-uebazl-gejhpq capsule (PreserVision AREDS-2) rosuvastatin 20 mg tablet [...] beverages and coffee eating out: 1-3 times/week adán/caodaism: Cheondoism seatbelt use: always do you feel safe at home: Yes HPI HPI HPI: ELIAS SHAH, is a 85 M who presents to the office today for follow-up s/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 He is accompanied to his appointment today by his sister who manages his healthcare. He is now residing in [facility]. He reports that ever since the procedure he has had persistent pain right behind his knee, he is taking tylenol and oxycodone as prescribed by (more content not included)... Normal [facility] Type AND Screenon 08-24-2025 Ab SCREEN GEL Negative Normal [facility] Comment on above: Order Comment: NTNYA Performed By: #### L 100.0100, L500.2500 #### [facility] Laboratory [address] [place], [address] Absolute lymphocyte countOrd ered By: Trixie Pang on 08-23-2025 Lymphocytes Auto (Unsp spec) [#/Vol] 1.87 10*3/uL 0.83-4.51 [facility] Anion gap in Serum or Plasma Ordered By: Trixie Pang on 08-23-2025 Anion gap [Moles/Vol] 10 mmol/L 5-15 [facility] Automated lymphocyte count a s percentage of total leukocytesOrdered By: Trixie Pang on 08-23-2025 Lymphocytes/100 WBC Auto (Unsp spec) 32.2 % 19-41 [facility] BUN/creatinine ratioOrdered By: Trixie Pang on 08-23-2025 Urea nitrogen/Creatinine [Mass ratio] 11.2 mg/mg 10-20 [facility] Basophil percentageOrdered B y: Trixie Pang on 08-23-2025 Basophils/100 WBC (Bld) 0.2 % 0-1 [facility] Carbon dioxide, total [Moles /volume] in Central venous bloodOrdered By: Trixie Pang on 08-23-2025 CO2 [Moles/Vol] 26.3 mmol/L 21.0-32.0 [facility] Chloride assayOrdered By: Bandar Pang on 08-23-2025 Chloride [Moles/Vol] 101 mmol/L 98-108 [facility] Eosinophil percentageOrdered By: Trixie Pang on 08-23-2025 Eosinophils/100 WBC (Bld) 0.3 % 0-5 [facility] Erythrocyte distribution wid th ratioOrdered By: Trixie Pang on 08-23-2025 Erythrocyte distribution width (RBC) [Ratio] 17.3 % High 11.6-14.6 [facility] Erythrocyte distribution wid th standard deviationOrdered By: Trixie Pang on 08-23-2025 Erythrocyte distribution width (RBC) [Ratio] 50.4 fl High 35.1-43.9 [facility] Glomerular filtration rate ( GFR) estimation/1.73 sq m using serum, plasma, or whole bOrdered By: Trixie Pang on 08-23-2025 GFR/1.73 sq M.predicted among non-blacks MDRD (S/P/Bld) [Vol rate/Area] 83 mL/min/{1.73_m2} >60 [facility] Hematocrit Auto (Bld) [Volum e fraction]Ordered By: Trixie Pang on 08-23-2025 Hematocrit (Bld) [Volume fraction] 24.7 % Low 40-54 [facility] Hemoglobin measurementOrdere d By: Trixie Pang on 08-23-2025 Hemoglobin (Bld) [Mass/Vol] 7.6 g/dL Low 13.0-16.5 [facility] Immature granulocytes/100 WB C Auto (Bld)Ordered By: Trixie Pang on 08-23-2025 Immature granulocytes/100 WBC (Bld) 1.000 % High 0.0-0.9 [facility] MCV (mean corpuscular volume ) determinationOrdered By: Trixie Pang on 08-23-2025 MCV (RBC) [Entitic vol] 81.8 fL 80-94 [facility] Mean corpuscular hemoglobin (MCH) determinationOrdered By: Trixie Pang 08-23-2025 MCH (RBC) [Entitic mass] 25.2 pg Low 27.0-32.0 [facility] Monocyte percentageOrdered B y: Ianmanifortunato Pang on 08-23-2025 Monocytes/100 WBC (Bld) 14.8 % High 0-10 [facility] Neutrophil percentageOrdered By: Hunterfortunato Molinachristophemiranda on 08-23-2025 Neutrophils/100 WBC (Bld) 51.5 % 47-70 [facility] Platelet countOrdered By: Bandar nicolreynaldo Pang on 08-23-2025 Platelets (Bld) [#/Vol] 220 10*3/uL 150-450 [facility] Potassium measurement (mass/ volume)Ordered By: Trixie Pang on 08-23-2025 Potassium (Unsp spec) [Mass/Vol] 4.0 mmol/L 3.3-5.1 [facility] RBC Auto (Bld) [#/Vol]Ordere d By: Trixie Pang on 08-23-2025 RBC (Bld) [#/Vol] 3.02 10*6/uL Low 4.6-6.2 [facility] Serum creatinine measurement (mass/volume)Ordered By: Trixie Pang on 08-23-2025 Creatinine [Mass/Vol] 0.90 mg/dL 0.70-1.20 [facility] Serum glucose measurement (m ass/volume)Ordered By: Trixie Pang on 08-23-2025 Glucose [Mass/Vol] 95 mg/dL 70-99 [facility] Serum or plasma calcium donna urement (mass/volume)Ordered By: Trixie Pang on 08-23-2025 Calcium [Mass/Vol] 8.2 mg/dL 7.6-11.0 [facility] Serum or plasma urea nitroge n measurement (mass/volume)Ordered By: Trixie Pang on 08-23-2025 Urea nitrogen [Mass/Vol] 10 mg/dL 4-19 [facility] Sodium levelOrdered By: Ian brodyjuice Bird on 08-23-2025 Sodium [Moles/Vol] 137 mmol/L 133-145 [facility] White blood cell (WBC) count Ordered By: Trixie Pang on 08-23-2025 WBC (Bld) [#/Vol] 5.8 10*3/uL 4.4-11.0 [facility] Absolute lymphocyte countOrd ered By: Trixie Pang on 08-16-2025 Lymphocytes Auto (Unsp spec) [#/Vol] 1.56 10*3/uL 0.83-4.51 [facility] Anion gap in Serum or Plasma Ordered By: Trixie Pang on 08-16-2025 Anion gap [Moles/Vol] 10 mmol/L 5-15 [facility] Automated lymphocyte count a s percentage of total leukocytesOrdered By: Trixie Pang on 08-16-2025 Lymphocytes/100 WBC Auto (Unsp spec) 17.8 % Low 19-41 [facility] BUN/creatinine ratioOrdered By: Trixie Pang on 08-16-2025 Urea nitrogen/Creatinine [Mass ratio] 18.1 mg/mg 10-20 [facility] Basophil percentageOrdered B y: Trixie Pang on 08-16-2025 Basophils/100 WBC (Bld) 0.1 % 0-1 [facility] Bilirubin directOrdered By: Trixie Pang on 08-16-2025 Bilirubin.direct [Mass/Vol] 0.21 mg/dL 0.00-0.30 [facility] Bilirubin, totalOrdered By: Trixie Pang on 08-16-2025 Bilirubin [Mass/Vol] 0.39 mg/dL 0.00-1.30 [facility] Carbon dioxide, total [Moles /volume] in Central venous bloodOrdered By: Trixie Pang on 08-16-2025 CO2 [Moles/Vol] 25.7 mmol/L 21.0-32.0 [facility] Chloride assayOrdered By: Bandar Pang on 08-16-2025 Chloride [Moles/Vol] 99 mmol/L 98-108 [facility] Eosinophil percentageOrdered By: Trixie Pang on 08-16-2025 Eosinophils/100 WBC (Bld) 0.5 % 0-5 [facility] Erythrocyte distribution wid th ratioOrdered By: Trixie Pang on 08-16-2025 Erythrocyte distribution width (RBC) [Ratio] 17.5 % High 11.6-14.6 [facility] Erythrocyte distribution wid th standard deviationOrdered By: Trixie Augustechristophemiranda on 08-16-2025 Erythrocyte distribution width (RBC) [Ratio] 51.3 fl High 35.1-43.9 [facility] Glomerular filtration rate ( GFR) estimation/1.73 sq m using serum, plasma, or whole bOrdered By: Trixie Pang on 08-16-2025 GFR/1.73 sq M.predicted among non-blacks MDRD (S/P/Bld) [Vol rate/Area] 67 mL/min/{1.73_m2} >60 [facility] Hematocrit Auto (Bld) [Volum e fraction]Ordered By: [facility] on 08-16-2025 Hematocrit (Bld) [Volume fraction] 25.9 % Low 40-54 [facility] Hemoglobin measurementOrdere d By: Trixie Pang on 08-16-2025 Hemoglobin (Bld) [Mass/Vol] 7.7 g/dL Low 13.0-16.5 [facility] Immature granulocytes/100 WB C Auto (Bld)Ordered By: Trixie Pang on 08-16-2025 Immature granulocytes/100 WBC (Bld) 1.400 % High 0.0-0.9 [facility] MCV (mean corpuscular volume ) determinationOrdered By: Trixie Pang on 08-16-2025 MCV (RBC) [Entitic vol] 82.2 fL 80-94 [facility] Mean corpuscular hemoglobin (MCH) determinationOrdered By: [facility] on 08-16-2025 MCH (RBC) [Entitic mass] 24.4 pg Low 27.0-32.0 [facility] Monocyte percentageOrdered B y: Trixie Pang on 08-16-2025 Monocytes/100 WBC (Bld) 13.7 % High 0-10 [facility] Neutrophil percentageOrdered By: nicolliberty lakefortunato Pang on 08-16-2025 Neutrophils/100 WBC (Bld) 66.5 % 47-70 [facility] No Panel InformationOrdered By: Trixie Pang on 08-16-2025 226 U/L High <38 [facility] Platelet countOrdered By: Bandar Pang on 08-16-2025 Platelets (Bld) [#/Vol] 234 10*3/uL 150-450 [facility] Potassium measurement (mass/ volume)Ordered By: Trixie Pang on 08-16-2025 Potassium (Unsp spec) [Mass/Vol] 4.3 mmol/L 3.3-5.1 [facility] RBC Auto (Bld) [#/Vol]Ordere d By: Trixie Pang on 08-16-2025 RBC (Bld) [#/Vol] 3.15 10*6/uL Low 4.6-6.2 [facility] Serum creatinine measurement (mass/volume)Ordered By: Trixie Pang on 08-16-2025 Creatinine [Mass/Vol] 1.07 mg/dL 0.70-1.20 [facility] Serum globulin measurementOr dered By: Trixie Pang on 08-16-2025 Globulin (S) [Mass/Vol] 3.7 g/dL 2.2-4.2 [facility] Serum glucose measurement (m ass/volume)Ordered By: Trixie Pang on 08-16-2025 Glucose [Mass/Vol] 103 mg/dL High 70-99 [facility] Serum or plasma alanine mccoy otransferase (ALT) measurementOrdered By: Trixie Pang on 08-16-2025 ALT [Catalytic activity/Vol] 179 U/L High <47 [facility] Serum or plasma albumin donna urement (mass/volume)Ordered By: Trixie Pang on 08-16-2025 Albumin [Mass/Vol] 2.7 g/dL Low 3.4-4.8 [facility] Serum or plasma alkaline salvador sphatase measurementOrdered By: Trixie Pang on 08-16-2025 ALP [Catalytic activity/Vol] 164 U/L High 40-129 [facility] Serum or plasma calcium donna urement (mass/volume)Ordered By: Trixie Pang on 08-16-2025 Calcium [Mass/Vol] 8.4 mg/dL 7.6-11.0 [facility] Serum or plasma urea nitroge n measurement (mass/volume)Ordered By: Trixie Pang on 08-16-2025 Urea nitrogen [Mass/Vol] 19 mg/dL 4- [facility] Sodium levelOrdered By: Ian Pang on 08-16-2025 Sodium [Moles/Vol] 134 mmol/L 133-145 [facility] Total proteinOrdered By: Jarred Pang on 08-16-2025 Protein [Mass/Vol] 6.5 g/dL 5.9-8.4 [facility] White blood cell (WBC) count Ordered By: Trixie Pang on 08-16-2025 WBC (Bld) [#/Vol] 8.8 10*3/uL 4.4-11.0 [facility] Basic Metabolic Profile (BMP )on 08-11-2025 BUN Normal - [facility] Comment on above: Result Comment: Ritesh elled via OM: MD Ordered Performed By: #### L 500.2500 #### [facility] Laboratory [address] [place], [address] BUN/CRE Normal 10-20 [facility] Comment on above: Result Comment: Canc elled via OM: MD Ordered Performed By: #### L 500.2500 #### [facility] [address] [place], [address] Calcium Normal 7.6-11.0 [facility] Comment on above: Result Comment: Canc elled via OM: MD Ordered Performed By: #### L 500.2500 #### [facility] [address] [place], [address] CL Normal 98-108 [facility] Comment on above: Result Comment: Canc elled via OM: MD Ordered Performed By: #### L 500.2500 #### [facility] [address] [place], [address] CO2 Normal 21.0-32.0 [facility] Comment on above: Result Comment: Canc elled via OM: MD Ordered Performed By: #### L 500.2500 #### [facility] [address] [place], [address] CREAT,SERUM Normal 0.70-1.20 [facility] Comment on above: Result Comment: Canc elled via OM: MD Ordered Performed By: #### L 500.2500 #### [facility] [address] [place], [address] eGFR Normal >60 [facility] Comment on above: Result Comment: Canc elled via OM: MD Ordered Performed By: #### L 500.2500 #### [facility] [address] [place], [address] GAP Normal 5-15 [facility] Comment on above: Result Comment: Canc elled via OM: MD Ordered Performed By: #### L 500.2500 #### [facility] [address] [place], [address] GLU Normal 70-99 [facility] Comment on above: Result Comment: Canc elled via OM: MD Ordered Performed By: #### L 500.2500 #### [facility] [address] [place], [address] Potassium Normal 3.3-5.1 [facility] Comment on above: Result Comment: Canc elled via OM: MD Ordered Performed By: #### L 500.2500 #### [facility] [address] [place], [address] Basic Metabolic Profile (BMP) Normal 133-145 [facility] Comment on above: Result Comment: Canc elled via OM: MD Ordered Performed By: #### L 500.2500 #### [facility] [address] [place], [address] Culture, Blood (WB)on 2024 CUB No growth in 5 days. Normal [facility] Comment on above: Performed By: #### L 503.6005 #### [facility] [address] [place], [place], [address] Echo Complete W/ Contraston 08-11-2025 Echo Complete W/ Contrast [facility] [address] [place] [address] Echo Complete W/ Contrast 08/11/25 1354 MR#: [id number] Acct: [id number] Name: ELIAS SHAH Rep #: [id number] : 1940 85 From: Kenan Santamaria MD [...] Date Dictated: 08/11/25 1354 Date Transcribed: 08/11/251656 Mobile Home Set Up Person: Signed Normal [facility] Echocardiogram study reportO rdered By: Kenan Santamaria on 08-11-2025 Study report [facility] Work Phone: Basic Metabolic Profile (BMP )on 08-10-2025 BUN Normal -19 [facility] Comment on above: Result Comment: Canc elled via OM: Order cancelled - Patient discharged Performed By: #### L 100.0100, L500.2500 #### [facility] [address] [place], [address] BUN/CRE Normal 10-20 [facility] Comment on above: Result Comment: Canc elled via OM: Order cancelled - Patient discharged Performed By: #### L 100.0100, L500.2500 #### [facility] [address] [place], [address] Calcium Normal 7.6-11.0 [facility] Comment on above: Result Comment: Canc elled via OM: Order cancelled - Patient discharged Performed By: #### L 100.0100, L500.2500 #### [facility] [address] [place], [address] CL Normal 98-108 [facility] Comment on above: Result Comment: Canc elled via OM: Order cancelled - Patient discharged Performed By: #### L 100.0100, L500.2500 #### [facility] [address] [place], [address] CO2 Normal 21.0-32.0 [facility] Comment on above: Result Comment: Canc elled via OM: Order cancelled - Patient discharged Performed By: #### L 100.0100, L500.2500 #### [facility] [address] [place], [address] CREAT,SERUM Normal 0.70-1.20 [facility] Comment on above: Result Comment: Canc elled via OM: Order cancelled - Patient discharged Performed By: #### L 100.0100, L500.2500 #### [facility] [address] [place], [address] eGFR Normal >60 [facility] Comment on above: Result Comment: Canc elled via OM: Order cancelled - Patient discharged Performed By: #### L 100.0100, L500.2500 #### [facility] [address] [place], [address] GAP Normal 5-15 [facility] Comment on above: Result Comment: Canc elled via OM: Order cancelled - Patient discharged Performed By: #### L 100.0100, L500.2500 #### [facility] [address] [place], [address] GLU Normal 70-99 [facility] Comment on above: Result Comment: Canc elled via OM: Order cancelled - Patient discharged Performed By: #### L 100.0100, L500.2500 #### [facility] [address] [place], [address] Potassium Normal 3.3-5.1 [facility] Comment on above: Result Comment: Canc elled via OM: Order cancelled - Patient discharged Performed By: #### L 100.0100, L500.2500 #### [facility] [address] [place], [address] Basic Metabolic Profile (BMP) Normal 133-145 [facility] Comment on above: Result Comment: Canc elled via OM: Order cancelled - Patient discharged Performed By: #### L 100.0100, L500.2500 #### [facility] [address] [place], [address] CBC W/Diff, Automatedon 09-1 Absolute Neut Normal 2.0-7.7 [facility] Comment on above: Result Comment: Canc elled via OM: Order cancelled - Patient discharged Performed By: #### L 100.0100, L500.2500 #### [facility] [address] [place], [address] HCT Normal 40-54 [facility] Comment on above: Result Comment: Canc elled via OM: Order cancelled - Patient discharged Performed By: #### L 100.0100, L500.2500 #### [facility] [address] [place], [address] HGB Normal 13.0-16.5 [facility] Comment on above: Result Comment: Canc elled via OM: Order cancelled - Patient discharged Performed By: #### L 100.0100, L500.2500 #### [facility] [address] [place], [address] MCH Normal 27.0-32.0 [facility] Comment on above: Result Comment: Canc elled via OM: Order cancelled - Patient discharged Performed By: #### L 100.0100, L500.2500 #### [facility] [address] [place], [address] MCHC Normal 32-36 [facility] Comment on above: Result Comment: Canc elled via OM: Order cancelled - Patient discharged Performed By: #### L 100.0100, L500.2500 #### [facility] [address] [place], [address] MCV Normal 80-94 [facility] Comment on above: Result Comment: Canc elled via OM: Order cancelled - Patient discharged Performed By: #### L 100.0100, L500.2500 #### [facility] [address] [place], [address] NEUT% Normal 47-70 [facility] Comment on above: Result Comment: Canc elled via OM: Order cancelled - Patient discharged Performed By: #### L 100.0100, L500.2500 #### [facility] [address] [place], [address] PLT Normal 150-450 [facility] Comment on above: Result Comment: Canc elled via OM: Order cancelled - Patient discharged Performed By: #### L 100.0100, L500.2500 #### [facility] [address] [place], [address] RBC Normal 4.6-6.2 [facility] Comment on above: Result Comment: Canc elled via OM: Order cancelled - Patient discharged Performed By: #### L 100.0100, L500.2500 #### [facility] [address] [place], [address] RDW CV Normal 11.6-14.6 [facility] Comment on above: Result Comment: Canc elled via OM: Order cancelled - Patient discharged Performed By: #### L 100.0100, L500.2500 #### [facility] [address] [place], [address] RDW SD Normal 35.1-43.9 [facility] Comment on above: Result Comment: Canc elled via OM: Order cancelled - Patient discharged Performed By: #### L 100.0100, L500.2500 #### [facility] [address] [place], [address] WBC Normal 4.4-11.0 [facility] Comment on above: Result Comment: Canc elled via OM: Order cancelled - Patient discharged Performed By: #### L 100.0100, L500.2500 #### [facility] [address] [place], [address] Absolute lymphocyte countOrd ered By: Efmikaela Pang on 08-09-2025 Lymphocytes Auto (Unsp spec) [#/Vol] 1.61 10*3/uL 0.83-4.51 [facility] Anion gap in Serum or Plasma Ordered By: Trixie Pang on 08-09-2025 Anion gap [Moles/Vol] 10 mmol/L 5-15 [facility] Automated lymphocyte count a s percentage of total leukocytesOrdered By: Trixie Pang on 08-09-2025 Lymphocytes/100 WBC Auto (Unsp spec) 25.4 % - [facility] BUN/creatinine ratioOrdered By: nicolmanifortunato Augustechristophemiranda on 08-09-2025 Urea nitrogen/Creatinine [Mass ratio] 16.7 mg/mg 10- [facility] Basic Metabolic Profile (BMP )on 08-09-2025 BUN Normal 4-19 [facility] Comment on above: Result Comment: Ritesh elled via OM: MD Ordered Performed By: #### L 100.0100, L500.2500 #### [facility] [address] [place], [address] BUN/CRE Normal 10-20 [facility] Comment on above: Result Comment: Ritesh elled via OM: MD Ordered Performed By: #### L 100.0100, L500.2500 #### [facility] [address] [place], [address] Calcium Normal 7.6-11.0 [facility] Comment on above: Result Comment: Ritesh elled via OM: MD Ordered Performed By: #### L 100.0100, L500.2500 #### [facility] [address] [place], [address] CL Normal 98-108 [facility] Comment on above: Result Comment: Ritesh elled via OM: MD Ordered Performed By: #### L 100.0100, L500.2500 #### [facility] [address] [place], [address] CO2 Normal 21.0-32.0 [facility] Comment on above: Result Comment: Canc elled via OM: MD Ordered Performed By: #### L 100.0100, L500.2500 #### [facility] [address] [place], [address] CREAT,SERUM Normal 0.70-1.20 [facility] Comment on above: Result Comment: Canc elled via OM: MD Ordered Performed By: #### L 100.0100, L500.2500 #### [facility] [address] [place], [address] eGFR Normal >60 [facility] Comment on above: Result Comment: Canc elled via OM: MD Ordered Performed By: #### L 100.0100, L500.2500 #### [facility] [address] [place], [address] GAP Normal 5-15 [facility] Comment on above: Result Comment: Canc elled via OM: MD Ordered Performed By: #### L 100.0100, L500.2500 #### [facility] [address] [place], [address] GLU Normal 70-99 [facility] Comment on above: Result Comment: Canc elled via OM: MD Ordered Performed By: #### L 100.0100, L500.2500 #### [facility] [address] [place], [address] Potassium Normal 3.3-5.1 [facility] Comment on above: Result Comment: Canc elled via OM: MD Ordered Performed By: #### L 100.0100, L500.2500 #### [facility] [address] [place], [address] Basic Metabolic Profile (BMP) Normal 133-145 [facility] Comment on above: Result Comment: Canc elled via OM: MD Ordered Performed By: #### L 100.0100, L500.2500 #### [facility] [address] [place], [address] Basophil percentageOrdered B y: Trixie Pang on 08-09-2025 Basophils/100 WBC (Bld) 0.2 % 0-1 [facility] Bilirubin, totalOrdered By: Trixie Pang on 08-09-2025 Bilirubin [Mass/Vol] 0.37 mg/dL 0.00-1.30 [facility] CBC W/Diff, Automatedon 07-24 Absolute Neut Normal 2.0-7.7 [facility] Comment on above: Result Comment: Canc elled via OM: MD Ordered Performed By: #### L 100.0100, L500.2500 #### [facility] Laboratory [address] [place], [address] HCT Normal 40-54 [facility] Comment on above: Result Comment: Canc elled via OM: MD Ordered Performed By: #### L 100.0100, L500.2500 #### [facility] Laboratory [address] [place], [address] HGB Normal 13.0-16.5 [facility] Comment on above: Result Comment: Canc elled via OM: MD Ordered Performed By: #### L 100.0100, L500.2500 #### [facility] Laboratory [address] [place], [address] MCH Normal 27.0-32.0 [facility] Comment on above: Result Comment: Canc elled via OM: MD Ordered Performed By: #### L 100.0100, L500.2500 #### [facility] Laboratory [address] [place], [address] MCHC Normal 32-36 [facility] Comment on above: Result Comment: Canc elled via OM: MD Ordered Performed By: #### L 100.0100, L500.2500 #### [facility] Laboratory [address] [place], [address] MCV Normal 80-94 [facility] Comment on above: Result Comment: Canc elled via OM: MD Ordered Performed By: #### L 100.0100, L500.2500 #### [facility] Laboratory [address] [place], [address] NEUT% Normal 47-70 [facility] Comment on above: Result Comment: Canc elled via OM: MD Ordered Performed By: #### L 100.0100, L500.2500 #### [facility] Laboratory [address] [place], [address] PLT Normal 150-450 [facility] Comment on above: Result Comment: Canc elled via OM: MD Ordered Performed By: #### L 100.0100, L500.2500 #### [facility] Laboratory [address] [place], [address] RBC Normal 4.6-6.2 [facility] Comment on above: Result Comment: Canc elled via OM: MD Ordered Performed By: #### L 100.0100, L500.2500 #### [facility] Laboratory [address] [place], [address] RDW CV Normal 11.6-14.6 [facility] Comment on above: Result Comment: Canc elled via OM: MD Ordered Performed By: #### L 100.0100, L500.2500 #### [facility] Laboratory [address] [place], [address] RDW SD Normal 35.1-43.9 [facility] Comment on above: Result Comment: Canc elled via OM: MD Ordered Performed By: #### L 100.0100, L500.2500 #### [facility] Laboratory [address] [place], [address] WBC Normal 4.4-11.0 [facility] Comment on above: Result Comment: Canc elled via OM: MD Ordered Performed By: #### L 100.0100, L500.2500 #### [facility] [place], [address] Calculated very low density lipoprotein (VLDL) cholesterol measurementOrdered By: Trixie Pang on 08-09-2025 Calculated very low density lipoprotein (VLDL) cholesterol measurement 16 mg/dL 5-40 [facility] Carbon dioxide, total [Moles /volume] in Central venous bloodOrdered By: Trixie Pang on 08-09-2025 CO2 [Moles/Vol] 24.8 mmol/L 21.0-32.0 [facility] Chloride assayOrdered By: Bandar Pang on 08-09-2025 Chloride [Moles/Vol] 103 mmol/L 98-108 [facility] Eosinophil percentageOrdered By: Trixie Pang 08-09-2025 Eosinophils/100 WBC (Bld) 0.6 % 0-5 [facility] Erythrocyte distribution wid th ratioOrdered By: Trixie Pang on 08-09-2025 Erythrocyte distribution width (RBC) [Ratio] 16.8 % High 11.6-14.6 [facility] Erythrocyte distribution wid th standard deviationOrdered By: nicolliberty lakefortunato Pang on 08-09-2025 Erythrocyte distribution width (RBC) [Ratio] 49.4 fl High 35.1-43.9 [facility] Glomerular filtration rate ( GFR) estimation/1.73 sq m using serum, plasma, or whole bOrdered By: Trixie Pang on 08-09-2025 GFR/1.73 sq M.predicted among non-blacks MDRD (S/P/Bld) [Vol rate/Area] 74 mL/min/{1.73_m2} >60 [facility] Hematocrit Auto (Bld) [Volum e fraction]Ordered By: Trixie Pang on 08-09-2025 Hematocrit (Bld) [Volume fraction] 26.7 % Low 40-54 [facility] Hemoglobin measurementOrdere d By: Trixie Pang on 08-09-2025 Hemoglobin (Bld) [Mass/Vol] 8.3 g/dL Low 13.0-16.5 [facility] Immature granulocytes/100 WB C Auto (Bld)Ordered By: Trixie Pang on 08-09-2025 Immature granulocytes/100 WBC (Bld) 4.300 % High 0.0-0.9 [facility] LDL calc ser/plasOrdered By: Trixie Pang on 08-09-2025 Cholesterol in LDL [Mass/Vol] 35 mg/dL [facility] MCV (mean corpuscular volume ) determinationOrdered By: Trixie Pang on 08-09-2025 MCV (RBC) [Entitic vol] 82.9 fL 80-94 [facility] Mean corpuscular hemoglobin (MCH) determinationOrdered By: Trixie Pang on 08-09-2025 MCH (RBC) [Entitic mass] 25.8 pg Low 27.0-32.0 [facility] Monocyte percentageOrdered B y: Trixie Pang on 08-09-2025 Monocytes/100 WBC (Bld) 17.3 % High 0-10 [facility] Neutrophil percentageOrdered By: Trixie Pang on 08-09-2025 Neutrophils/100 WBC (Bld) 52.2 % 47-70 [facility] No Panel InformationOrdered By: Trixie Pang on 08-09-2025 82 U/L High <38 [facility] Platelet countOrdered By: Bandar Pang on 08-09-2025 Platelets (Bld) [#/Vol] 245 10*3/uL 150-450 [facility] Potassium measurement (mass/ volume)Ordered By: Trixie Pang on 08-09-2025 Potassium (Unsp spec) [Mass/Vol] 4.3 mmol/L 3.3-5.1 [facility] RBC Auto (Bld) [#/Vol]Ordere d By: Trixie Pang on 08-09-2025 RBC (Bld) [#/Vol] 3.22 10*6/uL Low 4.6-6.2 [facility] Serum creatinine measurement (mass/volume)Ordered By: Trixie Pang on 08-09-2025 Creatinine [Mass/Vol] 0.98 mg/dL 0.70-1.20 [facility] Serum globulin measurementOr dered By: Trixie Pang on 08-09-2025 Globulin (S) [Mass/Vol] 3.7 g/dL 2.2-4.2 [facility] Serum glucose measurement (m ass/volume)Ordered By: Trixie Pang on 08-09-2025 Glucose [Mass/Vol] 92 mg/dL 70-99 [facility] Serum or plasma alanine mccoy otransferase (ALT) measurementOrdered By: Trixie Pang on 08-09-2025 ALT [Catalytic activity/Vol] 112 U/L High <47 [facility] Serum or plasma albumin donna urement (mass/volume)Ordered By: Trixie Pang on 08-09-2025 Albumin [Mass/Vol] 2.6 g/dL Low 3.4-4.8 [facility] Serum or plasma albumin/glob ulin mass ratioOrdered By: Trixie Pang on 08-09-2025 Albumin/Globulin [Mass ratio] 0.7 {ratio} Low 0.9-2.4 [facility] Serum or plasma alkaline salvador sphatase measurementOrdered By: Trixie Pang on 08-09-2025 ALP [Catalytic activity/Vol] 147 U/L High 40-129 [facility] Serum or plasma calcium donna urement (mass/volume)Ordered By: Trixie Pang on 08-09-2025 Calcium [Mass/Vol] 8.6 mg/dL 7.6-11.0 [facility] Serum or plasma cholesterol in HDL measurement (mass/volume)Ordered By: Trixie Pang on 08-09-2025 Cholesterol in HDL [Mass/Vol] 23 mg/dL Low >40 [facility] Serum or plasma cholesterol measurement (mass/volume)Ordered By: Trixie Pang on 08-09-2025 Cholesterol [Mass/Vol] 74 mg/dL <201 [facility] Serum or plasma urea nitroge n measurement (mass/volume)Ordered By: Trixie Pang on 08-09-2025 Urea nitrogen [Mass/Vol] 16 mg/dL 4-19 [facility] Sodium levelOrdered By: Bandarnicol Pang on 08-09-2025 Sodium [Moles/Vol] 138 mmol/L 133-145 [facility] Total proteinOrdered By: Jarred Pang on 08-09-2025 Protein [Mass/Vol] 6.3 g/dL 5.9-8.4 [facility] Vitamin B12 ser/plasOrdered By: Trixie Pang on 08-09-2025 Cobalamin (Vitamin B12) [Mass/Vol] 1811 pg/mL High 180-914 [facility] White blood cell (WBC) count Ordered By: Trixie Molinachristophemiranda on 08-09-2025 WBC (Bld) [#/Vol] 6.4 10*3/uL 4.4-11.0 [facility] Absolute lymphocyte countOrd ered By: Pedro Banegas on 08-08-2025 Lymphocytes Auto (Unsp spec) [#/Vol] 1.38 10*3/uL 0.83-4.51 [facility] Absolute neutrophil countOrd ered By: Pedro Banegas on 08-08-2025 Neutrophils (Bld) [#/Vol] 5.1 10*3/uL 2.0-7.7 [facility] Anion gap in Serum or Plasma Ordered By: Pedro Banegas on 08-08-2025 Anion gap [Moles/Vol] 9 mmol/L 5-15 [facility] Automated lymphocyte count a s percentage of total leukocytesOrdered By: Pedro Banegas on 08-08-2025 Lymphocytes/100 WBC Auto (Unsp spec) 17.1 % Low 19-41 [facility] BUN/creatinine ratioOrdered By: Pedro Banegas on 08-08-2025 Urea nitrogen/Creatinine [Mass ratio] 18.8 mg/mg 10- [facility] Basic Metabolic Profile (BMP )on 08-08-2025 BUN/CRE 18.8 RATIO Normal - [facility] Comment on above: Performed By: #### L 100.0100, L500.2500 #### [facility] Laboratory [address] [place], [place] [address], [address] Calcium [Mass/Vol] 8.4 mg/dL Normal 7.6-11.0 [facility] Comment on above: Performed By: #### L 100.0100, L500.2500 #### [facility] Laboratory [address] [place], [address] Chloride [Moles/Vol] 105 mmol/L Normal 98-108 [facility] Comment on above: Performed By: #### L 100.0100, L500.2500 #### [facility] Laboratory [address] [place], [address] CO2 [Moles/Vol] 23.3 mmol/L Normal 21.0-32.0 [facility] Comment on above: Performed By: #### L 100.0100, L500.2500 #### [facility] Laboratory [address] [place], [address] Creatinine [Mass/Vol] 1.04 mg/dL Normal 0.70-1.20 [facility] Comment on above: Performed By: #### L 100.0100, L500.2500 #### [facility] Laboratory [address] [place], [address] ECRCL 55.85 ml/min Normal 50-250 [facility] Comment on above: Performed By: #### L 100.0100, L500.2500 #### [facility] Laboratory [address] [place], [address] GAP 9 Normal 5-15 [facility] Comment on above: Performed By: #### L 100.0100, L500.2500 #### [facility] Laboratory [address] [place], [address] GFR/1.73 sq M.predicted among non-blacks MDRD (S/P/Bld) [Vol rate/Area] 69 mL/min/{1.73_m2} Normal >60 [facility] Comment on above: Result Comment: mL/m in/1.73m2 CKD-EPI Creatinine Equation (2020) Performed By: #### L 100.0100, L500.2500 #### [facility] Laboratory [address] [place], [address] Glucose [Mass/Vol] 97 mg/dL Normal 70-99 [facility] Comment on above: Performed By: #### L 100.0100, L500.2500 #### [facility] Laboratory [address] [place], [address] Potassium [Moles/Vol] 4.6 mmol/L Normal 3.3-5.1 [facility] Comment on above: Performed By: #### L 100.0100, L500.2500 #### [facility] Laboratory [address] [place], [address] Sodium [Moles/Vol] 137 mmol/L Normal 133-145 [facility] Comment on above: Performed By: #### L 100.0100, L500.2500 #### [facility] Laboratory [address] [place], [address] Urea nitrogen [Mass/Vol] 20 mg/dL High 4-19 [facility] Comment on above: Performed By: #### L 100.0100, L500.2500 #### [facility] Laboratory [address] [place], [address] Basophil percentageOrdered B y: Pedro Banegas on 08-08-2025 Basophils/100 WBC (Bld) 0.2 % 0-1 [facility] CBC W/Diff, Automatedon 07-24 Absolute Lymph 1.38 X10 3/uL Normal 0.83-4.51 [facility] Comment on above: Performed By: #### L 100.0100, L500.2500 #### [facility] Laboratory [address] [place], [address] Absolute Neut 5.1 X10 3/uL Normal 2.0-7.7 [facility] Comment on above: Performed By: #### L 100.0100, L500.2500 #### [facility] Laboratory [address] [place], [address] Basophils/100 WBC (Bld) 0.2 % Normal 0-1 [facility] Comment on above: Performed By: #### L 100.0100, L500.2500 #### [facility] Laboratory [address] [place], [address] Eosinophils/100 WBC (Bld) 0.7 % Normal 0-5 [facility] Comment on above: Performed By: #### L 100.0100, L500.2500 #### [facility] Laboratory [address] [place], [address] Erythrocyte distribution width (RBC) [Ratio] 16.7 % High 11.6-14.6 [facility] Comment on above: Performed By: #### L 100.0100, L500.2500 #### [facility] Laboratory [address] [place], [address] Hematocrit (Bld) [Volume fraction] 27.3 % Low 40-54 [facility] Comment on above: Performed By: #### L 100.0100, L500.2500 #### [facility] Laboratory [address] [place], [address] Hemoglobin (Bld) [Mass/Vol] 8.7 g/dL Low 13.0-16.5 [facility] Comment on above: Performed By: #### L 100.0100, L500.2500 #### [facility] Laboratory [address] [place], [address] IG% 2.900 High 0.0-0.9 [facility] Comment on above: Result Comment: IG% - Immature Granulocytes (promyelocytes, myelocytes and metamyelocytes) > 1% indicates that a LEFT SHIFT is Present. Performed By: #### L 100.0100, L500.2500 #### [facility] Laboratory [address] [place], [address] Lymphocytes/100 WBC (Bld) 17.1 % Low 19-41 [facility] Comment on above: Performed By: #### L 100.0100, L500.2500 #### [facility] Laboratory [address] [place], [address] MCH (RBC) [Entitic mass] 26.2 pg Low 27.0-32.0 [facility] Comment on above: Performed By: #### L 100.0100, L500.2500 #### [facility] Laboratory [address] [place], [address] MCHC (RBC) [Mass/Vol] 31.9 g/dL Low 32-36 [facility] Comment on above: Performed By: #### L 100.0100, L500.2500 #### [facility] Laboratory [address] [place], [address] MCV (RBC) [Entitic vol] 82.2 fL Normal 80-94 [facility] Comment on above: Performed By: #### L 100.0100, L500.2500 #### [facility] Laboratory [address] [place], [address] Monocytes/100 WBC (Bld) 15.9 % High 0-10 [facility] Comment on above: Performed By: #### L 100.0100, L500.2500 #### [facility] Laboratory [address] [place], [address] Neutrophils/100 WBC (Bld) 63.2 % Normal 47-70 [facility] Comment on above: Performed By: #### L 100.0100, L500.2500 #### [facility] Laboratory [address] [place], [address] Nucleated RBC (Bld) [#/Vol] 0 10*3/uL Normal 0-5 [facility] Comment on above: Performed By: #### L 100.0100, L500.2500 #### [facility] Laboratory [address] [place], [address] Platelet mean volume (Bld) [Entitic vol] 8.7 fL Normal 6.2-12.0 [facility] Comment on above: Performed By: #### L 100.0100, L500.2500 #### [facility] Laboratory [address] [place], [address] Platelets (Bld) [#/Vol] 239 10*3/uL Normal 150-450 [facility] Comment on above: Performed By: #### L 100.0100, L500.2500 #### [facility] Laboratory [address] [place], [address] RBC (Bld) [#/Vol] 3.32 10*6/uL Low 4.6-6.2 [facility] Comment on above: Performed By: #### L 100.0100, L500.2500 #### [facility] Laboratory [address] [place], [address] RDW SD 49.8 fl High 35.1-43.9 [facility] Comment on above: Performed By: #### L 100.0100, L500.2500 #### [facility] Laboratory [address] [place], [address] WBC (Bld) [#/Vol] 8.1 10*3/uL Normal 4.4-11.0 [facility] Comment on above: Performed By: #### L 100.0100, L500.2500 #### [facility] Laboratory [address] [place], [address] Carbon dioxide, total [Moles /volume] in Central venous bloodOrdered By: Pedro Banegas on 08-08-2025 CO2 [Moles/Vol] 23.3 mmol/L 21.0-32.0 [facility] Chloride assayOrdered By: Alan Banegas on 08-08-2025 Chloride [Moles/Vol] 105 mmol/L 98-108 [facility] Eosinophil percentageOrdered By: Pedro Banegas on 08-08-2025 Eosinophils/100 WBC (Bld) 0.7 % 0-5 [facility] Erythrocyte distribution wid th ratioOrdered By: Pedro Banegas on 08-08-2025 Erythrocyte distribution width (RBC) [Ratio] 16.7 % High 11.6-14.6 [facility] Erythrocyte distribution wid th standard deviationOrdered By: Pedro Banegas on 08-08-2025 Erythrocyte distribution width (RBC) [Ratio] 49.8 fl High 35.1-43.9 [facility] Glomerular filtration rate ( GFR) estimation/1.73 sq m using serum, plasma, or whole bOrdered By: Pedro Banegas on 08-08-2025 GFR/1.73 sq M.predicted among non-blacks MDRD (S/P/Bld) [Vol rate/Area] 69 mL/min/{1.73_m2} >60 [facility] Comment on above: mL/min/1.73m2 CKD-EP I Creatinine Equation (2020) Hematocrit Auto (Bld) [Volum e fraction]Ordered By: Pedro Banegas on 08-08-2025 Hematocrit (Bld) [Volume fraction] 27.3 % Low 40-54 [facility] Hemoglobin measurementOrdere d By: Pedro Banegas on 08-08-2025 Hemoglobin (Bld) [Mass/Vol] 8.7 g/dL Low 13.0-16.5 [facility] Immature granulocytes/100 WB C Auto (Bld)Ordered By: Pedro Banegas on 08-08-2025 Immature granulocytes/100 WBC (Bld) 2.900 % High 0.0-0.9 [facility] Comment on above: IG% - Immature Granu locytes (promyelocytes, myelocytes and metamyelocytes) > 1% indicates that a LEFT SHIFT is Present. MCV (mean corpuscular volume ) determinationOrdered By: Pedro Banegas on 08-08-2025 MCV (RBC) [Entitic vol] 82.2 fL 80-94 [facility] Mean corpuscular hemoglobin (MCH) determinationOrdered By: Pedro Banegas 08-08-2025 MCH (RBC) [Entitic mass] 26.2 pg Low 27.0-32.0 [facility] Mean corpuscular hemoglobin concentration (MCHC) determinationOrdered By: Pedro Banegas on 08-08-2025 MCHC (RBC) [Mass/Vol] 31.9 g/dL Low 32-36 [facility] Comment on above: Delta: 29.7 on 08/06 Mean platelet volume determi nationOrdered By: Pedro Banegas on 08-08-2025 Platelet mean volume (Bld) [Entitic vol] 8.7 fL 6.2-12.0 [facility] Monocyte percentageOrdered B y: Pedro Banegas on 08-08-2025 Monocytes/100 WBC (Bld) 15.9 % High 0-10 [facility] Neutrophil percentageOrdered By: Pedro Banegas on 08-08-2025 Neutrophils/100 WBC (Bld) 63.2 % 47-70 [facility] Nucleated red blood cell per centageOrdered By: Pedro Banegas on 08-08-2025 Nucleated RBC/100 WBC (Bld) [Ratio] 0 % 0-5 [facility] Platelet countOrdered By: Alan Banegas on 08-08-2025 Platelets (Bld) [#/Vol] 239 10*3/uL 150-450 [facility] Potassium measurement (mass/ volume)Ordered By: Pedro Banegas on 08-08-2025 Potassium (Unsp spec) [Mass/Vol] 4.6 mmol/L 3.3-5.1 [facility] RBC Auto (Bld) [#/Vol]Ordere d By: Pedro Banegas on 08-08-2025 RBC (Bld) [#/Vol] 3.32 10*6/uL Low 4.6-6.2 [facility] Serum creatinine measurement (mass/volume)Ordered By: Pedro Banegas on 08-08-2025 Creatinine [Mass/Vol] 1.04 mg/dL 0.70-1.20 [facility] Serum glucose measurement (m ass/volume)Ordered By: Pedro Banegas on 08-08-2025 Glucose [Mass/Vol] 97 mg/dL 70-99 [facility] Serum or plasma calcium donna urement (mass/volume)Ordered By: Pedro Banegas on 08-08-2025 Calcium [Mass/Vol] 8.4 mg/dL 7.6-11.0 [facility] Serum or plasma urea nitroge n measurement (mass/volume)Ordered By: Pedro Banegas on 08-08-2025 Urea nitrogen [Mass/Vol] 20 mg/dL High 4-19 [facility] Sodium levelOrdered By: Melita Banegas on 08-08-2025 Sodium [Moles/Vol] 137 mmol/L 133-145 [facility] White blood cell (WBC) count Ordered By: Pedro Banegas on 08-08-2025 WBC (Bld) [#/Vol] 8.1 10*3/uL 4.4-11.0 [facility] Electrocardiogram reportOrde red By: Marlon Santana on 08-07-2025 EKG study [facility] [address] [place] [address] 12 Lead EKG 08/04/25 1203 MR#: [id number] Acct: [id number] Name: ELIAS SHAH Rep #:[id number] : 1940 85 From: Marlon sanchez MD Attending Dr: Dr. Pedro Banegas MD Status: ADM IN Ordering Dr: Ted Mtz MD Date: 08/04/25 Location: [facility] Sex: M C Admitted: 08/05/25 Test Reason [...] block Abnormal ECG Confirmed by Marlon Santana ([id number]), publications editor DONNIE SALINAS ([id number]) on 08/07/2025 1:08:31 PM Referred By: KD Confirmed By: Marlon Santana 08/07/25 4388 Date _ Marlon Santana MD CC: Dr. Ted Mtz MD; Dr. Pedro Banegas MD; Dr. Husam Khan MD ~ Signed [facility] Other Phone: Absolute lymphocyte countOrd ered By: Jim Adams on 08-06-2025 Lymphocytes Auto (Unsp spec) [#/Vol] 1.37 10*3/uL 0.83-4.51 [facility] Absolute neutrophil countOrd ered By: Jim Adams on 08-06-2025 Neutrophils (Bld) [#/Vol] 13.4 10*3/uL High 2.0-7.7 [facility] Anion gap in Serum or Plasma Ordered By: Jim Adams on 08-06-2025 Anion gap [Moles/Vol] 10 mmol/L 5-15 [facility] Automated lymphocyte count a s percentage of total leukocytesOrdered By: Jim Adams on 08-06-2025 Lymphocytes/100 WBC Auto (Unsp spec) 8.0 % Low 19-41 [facility] BUN/creatinine ratioOrdered By: Jim Adams on 08-06-2025 Urea nitrogen/Creatinine [Mass ratio] 24.3 mg/mg High 10-20 [facility] Basic Metabolic Profile (BMP )on 08-06-2025 BUN/CRE 24.3 RATIO High - [facility] Comment on above: Performed By: #### L 100.0100, L500.2500 #### [facility] Laboratory [address] [place], [address] Calcium [Mass/Vol] 8.0 mg/dL Normal 7.6-11.0 [facility] Comment on above: Performed By: #### L 100.0100, L500.2500 #### [facility] Laboratory [address] [place], [address] Chloride [Moles/Vol] 107 mmol/L Normal 98-108 [facility] Comment on above: Performed By: #### L 100.0100, L500.2500 #### [facility] Laboratory [address] [place], [address] CO2 [Moles/Vol] 18.5 mmol/L Low 21.0-32.0 [facility] Comment on above: Performed By: #### L 100.0100, L500.2500 #### [facility] Laboratory [address] [place], [address] Creatinine [Mass/Vol] 1.00 mg/dL Normal 0.70-1.20 [facility] Comment on above: Performed By: #### L 100.0100, L500.2500 #### [facility] Laboratory [address] [place], [address] ECRCL 58.09 ml/min Normal 50-250 [facility] Comment on above: Performed By: #### L 100.0100, L500.2500 #### [facility] Laboratory [address] [place], [address] GAP 10 Normal 5-15 [facility] Comment on above: Performed By: #### L 100.0100, L500.2500 #### [facility] Laboratory [address] [place], [address] GFR/1.73 sq M.predicted among non-blacks MDRD (S/P/Bld) [Vol rate/Area] 73 mL/min/{1.73_m2} Normal >60 [facility] Comment on above: Result Comment: mL/m in/1.73m2 CKD-EPI Creatinine Equation (2020) Performed By: #### L 100.0100, L500.2500 #### [facility] Laboratory [address] [place], [address] Glucose [Mass/Vol] 121 mg/dL High 70-99 [facility] Comment on above: Performed By: #### L 100.0100, L500.2500 #### [facility] Laboratory [address] [place], [address] Potassium [Moles/Vol] 4.7 mmol/L Normal 3.3-5.1 [facility] Comment on above: Performed By: #### L 100.0100, L500.2500 #### [facility] Laboratory [address] [place], [address] Sodium [Moles/Vol] 135 mmol/L Normal 133-145 [facility] Comment on above: Performed By: #### L 100.0100, L500.2500 #### [facility] Laboratory [address] [place], [address] Urea nitrogen [Mass/Vol] 24 mg/dL High 4- [facility] Comment on above: Performed By: #### L 100.0100, L500.2500 #### [facility] Laboratory [address] [place], [address] Basophil percentageOrdered B y: Jim Adams on 08-06-2025 Basophils/100 WBC (Bld) 0.2 % 0-1 [facility] Blood cultureOrdered By: Amy Banegas on 08-06-2025 Bacteria identified Cx Nom (Bld) No growth in 5 days. [facility] Blood manual differential co mment interpretation (narrative result)Ordered By: Jim Adams on 08-06-2025 Manual differential comment Carlin (Bld) [Interp] SCANNED [facility] Comment on above: MONOCYTOSIS PRESENT CBC W/Diff, Automatedon 07-24 SMEAR COMMENT SCANNED Normal [facility] Comment on above: Result Comment: MONO CYTOSIS PRESENT Performed By: #### L 100.0100, L500.2500 #### [facility] Laboratory [address] [place], [address] Carbon dioxide, total [Moles /volume] in Central venous bloodOrdered By: Jim Adams on 08-06-2025 CO2 [Moles/Vol] 18.5 mmol/L Low 21.0-32.0 [facility] Chloride assayOrdered By: Alannah Adams on 08-06-2025 Chloride [Moles/Vol] 107 mmol/L 98-108 [facility] Eosinophil percentageOrdered By: Jim Adams on 08-06-2025 Eosinophils/100 WBC (Bld) 0.0 % 0-5 [facility] Erythrocyte distribution wid th ratioOrdered By: Jim Adams on 08-06-2025 Erythrocyte distribution width (RBC) [Ratio] 16.5 % High 11.6-14.6 [facility] Erythrocyte distribution wid th standard deviationOrdered By: Jim Adams on 08-06-2025 Erythrocyte distribution width (RBC) [Ratio] 49.5 fl High 35.1-43.9 [facility] Glomerular filtration rate ( GFR) estimation/1.73 sq m using serum, plasma, or whole bOrdered By: Jim Adams on 08-06-2025 GFR/1.73 sq M.predicted among non-blacks MDRD (S/P/Bld) [Vol rate/Area] 73 mL/min/{1.73_m2} >60 [facility] Comment on above: mL/min/1.73m2 CKD-EP I Creatinine Equation (2020) Hematocrit Auto (Bld) [Volum e fraction]Ordered By: Jim Adams on 08-06-2025 Hematocrit (Bld) [Volume fraction] 26.9 % Low 40-54 [facility] Hemoglobin measurementOrdere d By: Jim Adams on 08-06-2025 Hemoglobin (Bld) [Mass/Vol] 8.0 g/dL Low 13.0-16.5 [facility] Immature granulocytes/100 WB C Auto (Bld)Ordered By: Jim Adams on 08-06-2025 Immature granulocytes/100 WBC (Bld) 2.500 % High 0.0-0.9 [facility] Comment on above: IG% - Immature Granu locytes (promyelocytes, myelocytes and metamyelocytes) > 1% indicates that a LEFT SHIFT is Present. MCV (mean corpuscular volume ) determinationOrdered By: Jim Adams on 08-06-2025 MCV (RBC) [Entitic vol] 83.0 fL 80-94 [facility] Mean corpuscular hemoglobin (MCH) determinationOrdered By: Jim Adams on 08-06-2025 MCH (RBC) [Entitic mass] 24.7 pg Low 27.0-32.0 [facility] Mean corpuscular hemoglobin concentration (MCHC) determinationOrdered By: Jim Adams on 08-06-2025 MCHC (RBC) [Mass/Vol] 29.7 g/dL Low 32-36 [facility] Mean platelet volume determi nationOrdered By: Jim Adams on 08-06-2025 Platelet mean volume (Bld) [Entitic vol] 9.1 fL 6.2-12.0 [facility] Monocyte percentageOrdered B y: Jim Adams on 08-06-2025 Monocytes/100 WBC (Bld) 10.9 % High 0-10 [facility] Neutrophil percentageOrdered By: Jim Adams on 08-06-2025 Neutrophils/100 WBC (Bld) 78.4 % High 47-70 [facility] Nucleated red blood cell per centageOrdered By: Jim Adams on 08-06-2025 Nucleated RBC/100 WBC (Bld) [Ratio] 0 % 0-5 [facility] Platelet countOrdered By: Alannah Adams on 08-06-2025 Platelets (Bld) [#/Vol] 237 10*3/uL 150-450 [facility] Potassium measurement (mass/ volume)Ordered By: Jim Adams on 08-06-2025 Potassium (Unsp spec) [Mass/Vol] 4.7 mmol/L 3.3-5.1 [facility] RBC Auto (Bld) [#/Vol]Ordere d By: Jim Adams on 08-06-2025 RBC (Bld) [#/Vol] 3.24 10*6/uL Low 4.6-6.2 [facility] Serum creatinine measurement (mass/volume)Ordered By: Jim Adams on 08-06-2025 Creatinine [Mass/Vol] 1.00 mg/dL 0.70-1.20 [facility] Serum glucose measurement (m ass/volume)Ordered By: Jim Adams on 08-06-2025 Glucose [Mass/Vol] 121 mg/dL High 70-99 [facility] Serum or plasma calcium donna urement (mass/volume)Ordered By: Jim Adams on 08-06-2025 Calcium [Mass/Vol] 8.0 mg/dL 7.6-11.0 [facility] Serum or plasma urea nitroge n measurement (mass/volume)Ordered By: Jim Adams on 08-06-2025 Urea nitrogen [Mass/Vol] 24 mg/dL High 4-19 [facility] Sodium levelOrdered By: Yazan Adams on 08-06-2025 Sodium [Moles/Vol] 135 mmol/L 133-145 [facility] White blood cell (WBC) count Ordered By: Jim Adams on 08-06-2025 WBC (Bld) [#/Vol] 17.1 10*3/uL High 4.4-11.0 [facility] Basic Metabolic Profile (BMP )on 08-05-2025 BUN/CRE 26.3 RATIO High 10-20 [facility] Comment on above: Performed By: #### L 100.0100, L500.2500 #### [facility] Laboratory [address] [place], [address] Calcium [Mass/Vol] 7.9 mg/dL Normal 7.6-11.0 [facility] Comment on above: Performed By: #### L 100.0100, L500.2500 #### [facility] Laboratory [address] [place], [address] Chloride [Moles/Vol] 106 mmol/L Normal 98-108 [facility] Comment on above: Performed By: #### L 100.0100, L500.2500 #### [facility] Laboratory [address] [place], [address] CO2 [Moles/Vol] 21.1 mmol/L Normal 21.0-32.0 [facility] Comment on above: Performed By: #### L 100.0100, L500.2500 #### [facility] Laboratory [address] [place], [address] Creatinine [Mass/Vol] 1.31 mg/dL High 0.70-1.20 [facility] Comment on above: Performed By: #### L 100.0100, L500.2500 #### [facility] Laboratory [address] [place], [address] ECRCL 44.34 ml/min Low 50-250 [facility] Comment on above: Performed By: #### L 100.0100, L500.2500 #### [facility] Laboratory [address] [place], [address] GAP 11 Normal 5-15 [facility] Comment on above: Performed By: #### L 100.0100, L500.2500 #### [facility] Laboratory [address] [place], [address] GFR/1.73 sq M.predicted among non-blacks MDRD (S/P/Bld) [Vol rate/Area] 53 mL/min/{1.73_m2} Low >60 [facility] Comment on above: Result Comment: mL/m in/1.73m2 CKD-EPI Creatinine Equation (2020) Performed By: #### L 100.0100, L500.2500 #### [facility] Laboratory [address] [place], [address] Glucose [Mass/Vol] 114 mg/dL High 70-99 [facility] Comment on above: Performed By: #### L 100.0100, L500.2500 #### [facility] Laboratory [address] [place], [address] Potassium [Moles/Vol] 4.6 mmol/L Normal 3.3-5.1 [facility] Comment on above: Performed By: #### L 100.0100, L500.2500 #### [facility] Laboratory [address] [place], [address] Sodium [Moles/Vol] 138 mmol/L Normal 133-145 [facility] Comment on above: Performed By: #### L 100.0100, L500.2500 #### [facility] Laboratory [address] [place], [address] Urea nitrogen [Mass/Vol] 35 mg/dL High 4-19 [facility] Comment on above: Performed By: #### L 100.0100, L500.2500 #### [facility] Laboratory [address] [place], [address] CBC-Complete Blood Cnt No Di ffon 08-05-2025 Erythrocyte distribution width (RBC) [Ratio] 16.8 % High 11.6-14.6 [facility] Comment on above: Performed By: #### L 100.0100, L500.2500 #### [facility] Laboratory [address] [place], [address] Hematocrit (Bld) [Volume fraction] 27.9 % Low 40-54 [facility] Comment on above: Performed By: #### L 100.0100, L500.2500 #### [facility] Laboratory [address] [place], [address] Hemoglobin (Bld) [Mass/Vol] 8.6 g/dL Low 13.0-16.5 [facility] Comment on above: Performed By: #### L 100.0100, L500.2500 #### [facility] Laboratory [address] [place], [address] MCH (RBC) [Entitic mass] 25.9 pg Low 27.0-32.0 [facility] Comment on above: Performed By: #### L 100.0100, L500.2500 #### [facility] Laboratory [address] [place], [address] MCHC (RBC) [Mass/Vol] 30.8 g/dL Low 32-36 [facility] Comment on above: Performed By: #### L 100.0100, L500.2500 #### [facility] Laboratory [address] [place], [address] MCV (RBC) [Entitic vol] 84.0 fL Normal 80-94 [facility] Comment on above: Performed By: #### L 100.0100, L500.2500 #### [facility] Laboratory [address] [place], [address] Platelet mean volume (Bld) [Entitic vol] 9.0 fL Normal 6.2-12.0 [facility] Comment on above: Performed By: #### L 100.0100, L500.2500 #### [facility] Laboratory [address] [place], [address] Platelets (Bld) [#/Vol] 248 10*3/uL Normal 150-450 [facility] Comment on above: Performed By: #### L 100.0100, L500.2500 #### [facility] Laboratory [address] [place], [address] RBC (Bld) [#/Vol] 3.32 10*6/uL Low 4.6-6.2 [facility] Comment on above: Performed By: #### L 100.0100, L500.2500 #### [facility] Laboratory [address] [place], [address] RDW SD 49.7 fl High 35.1-43.9 [facility] Comment on above: Performed By: #### L 100.0100, L500.2500 #### [facility] Laboratory [address] [place], [address] WBC (Bld) [#/Vol] 13.8 10*3/uL High 4.4-11.0 [facility] Comment on above: Performed By: #### L 100.0100, L500.2500 #### [facility] Laboratory [address] [place], [address] Ferritinon 08-05-2025 Ferritin [Mass/Vol] 521 ng/mL High 37-417 [facility] Comment on above: Performed By: #### L 500.4050, L503.0106, L503.6030 #### [facility] Laboratory [address] [facility] [address] [place], [place], [address] Iron measurement (mass/mass) Ordered By: Jim Adams on 08-05-2025 Iron (Unsp spec) [Mass/Mass] 14 ug/dL Low 65-175 [facility] Iron+Iron Binding Capacityon 08-05-2025 TIBC 149 ug/dL Low 250-450 [facility] Comment on above: Performed By: #### L 500.4050, L503.0106, L503.6030 #### [facility] Laboratory [address] [place], [place], [address] No Panel InformationOrdered By: Jim Adams on 08-05-2025 Unsaturated Iron Binding Capacity 135 ug/dL Low 228-428 [facility] 135 ug/dL Low 228-428 [facility] Serum or plasma ferritin yosef surement (mass/volume)Ordered By: Jim Adams on 08-05-2025 Ferritin [Mass/Vol] 521 ng/mL High 37-417 [facility] Serum or plasma iron saturat ion measurement (mass fraction)Ordered By: Jim Adams on 08-05-2025 Iron saturation [Mass fraction] 9.4 % 9-55 [facility] Comment on above: Previous reported re sult: 9.6 %Edited by: SCOTT on 08/05/25:1732 AMENDED REPORT 08/05/25 1732 IRON SATURATION previously reported as: 9.6 % 12 Lead EKGon 08-04-2025 12 Lead EKG [facility] Cardiovascular Services [address] [place] [address] 12 Lead EKG 08/04/25 1203 MR#: [id number] Acct: [id number] Name: ELIAS SHAH Rep #: [id number] : 1940 85 From: Marlon Santana MD [...] block Abnormal ECG Confirmed by Marlon Santana ([id number]), publications editor DONNIE SALINAS ([id number]) on 08/07/2025 1:08:31 PM Referred By: KD Confirmed By: Marlon Santana 08/07/25 1308 Date Marlon Santana MD CC: Dr. eTd Mtz MD; Dr. Pedro Banegas MD; Dr. Husam Khan MD Signed Normal [facility] Absolute lymphocyte countOrd ered By: Ted Mtz on 08-04-2025 Lymphocytes Auto (Unsp spec) [#/Vol] 0.96 10*3/uL 0.83-4.51 [facility] Absolute neutrophil countOrd ered By: Ted Mtz on 08-04-2025 Neutrophils (Bld) [#/Vol] 11.4 10*3/uL High 2.0-7.7 [facility] Anion gap in Serum or Plasma Ordered By: Ted Mtz on 08-04-2025 Anion gap [Moles/Vol] 11 mmol/L 5-15 [facility] Automated lymphocyte count a s percentage of total leukocytesOrdered By: Ted Mtz on 08-04-2025 Lymphocytes/100 WBC Auto (Unsp spec) 6.6 % Low 19-41 [facility] BUN/creatinine ratioOrdered By: Ted Mtz on 08-04-2025 Urea nitrogen/Creatinine [Mass ratio] 25.4 mg/mg High 10-20 [facility] Basophil percentageOrdered B y: Ted Mtz on 08-04-2025 Basophils/100 WBC (Bld) 0.1 % 0-1 [facility] Bilirubin Test strip Ql (U)O rdered By: Ted Mtz on 08-04-2025 Bilirubin Ql (U) Negative Negative [facility] Bilirubin, totalOrdered By: Ted Mtz on 08-04-2025 Bilirubin [Mass/Vol] 0.30 mg/dL 0.00-1.30 [facility] Blood manual differential co mment interpretation (narrative result)Ordered By: Ted Mtz on 08-04-2025 Manual differential comment Carlin (Bld) [Interp] COMMENT [facility] Comment on above: MONOCYTOSIS. CBC W/Diff, Automatedon 07-24 SMEAR COMMENT COMMENT Normal [facility] Comment on above: Result Comment: MONO CYTOSIS. Performed By: #### L 100.0100, L500.2500 #### [facility] Laboratory [address] [facility] [place], [place], [id number] Carbon dioxide, total [Moles /volume] in Central venous bloodOrdered By: Ted Mtz on 08-04-2025 CO2 [Moles/Vol] 24.4 mmol/L 21.0-32.0 [facility] Chest 1 View (Portable)on Chest 1 View (Portable) [facility] Imaging Services [address] [place], [place] [id number] Chest 1 View (Portable) MR#: [id number] Acct: [id number] Name: ELIAS SHAH Rep #: [id number] : 1940 M 85 From: Kings ayala MD PCP: Dr. Husam Khan MD Status: REG ER Study: Chest 1 View (Portable) Date of Exam: 08/04/25 Exam# [id number] Ordering Dr: Ted Mtz MD PROCEDURE: CHEST [...] No Acute Findings. Stable examination. Reading Location: [id number] CC: Dr. Ted Mtz MD; Dr. Husam Khan MD Mobile Home Set Up Person: Signed Normal [facility] Chloride assayOrdered By: Juan Mtz on 08-04-2025 Chloride [Moles/Vol] 101 mmol/L 98-108 [facility] Comprehensive Metabolic Prof ilon 08-04-2025 Albumin [Mass/Vol] 2.7 g/dL Low 3.4-4.8 [facility] Comment on above: Performed By: #### L 100.0100, L500.2500 #### [facility] Laboratory [address] [place], [address] Albumin/Globulin [Mass ratio] 0.7 {ratio} Low 0.9-2.4 [facility] Comment on above: Performed By: #### L 100.0100, L500.2500 #### [facility] Laboratory [address] [place], [address] ALK PHOS 112 U/L Normal 40-129 [facility] Comment on above: Performed By: #### L 100.0100, L500.2500 #### [facility] Laboratory [address] [place], [address] ALT [Catalytic activity/Vol] 83 U/L High <=46 [facility] Comment on above: Performed By: #### L 100.0100, L500.2500 #### [facility] Laboratory [address] [place], [address] AST [Catalytic activity/Vol] 114 U/L High <=37 [facility] Comment on above: Performed By: #### L 100.0100, L500.2500 #### [facility] Laboratory [address] [place], [address] Bilirubin [Mass/Vol] 0.30 mg/dL Normal 0.00-1.30 [facility] Comment on above: Performed By: #### L 100.0100, L500.2500 #### [facility] Laboratory [address] [place], [address] BUN/CRE 25.4 RATIO High 10-20 [facility] Comment on above: Performed By: #### L 100.0100, L500.2500 #### [facility] Laboratory [address] [place], [address] Calcium [Mass/Vol] 8.4 mg/dL Normal 7.6-11.0 [facility] Comment on above: Performed By: #### L 100.0100, L500.2500 #### [facility] Laboratory [address] [place], [address] Chloride [Moles/Vol] 101 mmol/L Normal 98-108 [facility] Comment on above: Performed By: #### L 100.0100, L500.2500 #### [facility] Laboratory [address] [place], [address] CO2 [Moles/Vol] 24.4 mmol/L Normal 21.0-32.0 [facility] Comment on above: Performed By: #### L 100.0100, L500.2500 #### [facility] Laboratory [address] [place], [address] Creatinine [Mass/Vol] 1.53 mg/dL High 0.70-1.20 [facility] Comment on above: Performed By: #### L 100.0100, L500.2500 #### [facility] Laboratory [address] [place], [address] ECRCL 37.98 ml/min Low 50-250 [facility] Comment on above: Performed By: #### L 100.0100, L500.2500 #### [facility] [facility] [address] [place], [address] GAP 11 Normal 5-15 [facility] Comment on above: Performed By: #### L 100.0100, L500.2500 #### [facility] Laboratory [address] [place], [address] GFR/1.73 sq M.predicted among non-blacks MDRD (S/P/Bld) [Vol rate/Area] 44 mL/min/{1.73_m2} Low >60 [facility] Comment on above: Result Comment: mL/m in/1.73m2 CKD-EPI Creatinine Equation (2020) Performed By: #### L 100.0100, L500.2500 #### [facility] [address] [place], [address] Globulin (S) [Mass/Vol] 3.8 g/dL Normal 2.2-4.2 [facility] Comment on above: Performed By: #### L 100.0100, L500.2500 #### [facility] Laboratory [address] [place], [address] Glucose [Mass/Vol] 158 mg/dL High 70-99 [facility] Comment on above: Performed By: #### L 100.0100, L500.2500 #### [facility] [address] [place], [address] Potassium [Moles/Vol] 4.3 mmol/L Normal 3.3-5.1 [facility] Comment on above: Performed By: #### L 100.0100, L500.2500 #### [facility] Laboratory [address] [place], [address] Sodium [Moles/Vol] 137 mmol/L Normal 133-145 [facility] Comment on above: Performed By: #### L 100.0100, L500.2500 #### [facility] [address] [place], [address] T PROT 6.5 g/dL Normal 5.9-8.4 [facility] Comment on above: Performed By: #### L 100.0100, L500.2500 #### [facility] Laboratory [address] [place], [address] Urea nitrogen [Mass/Vol] 39 mg/dL High 4-19 [facility] Comment on above: Performed By: #### L 100.0100, L500.2500 #### [facility] Laboratory [address] [place], [address] Emergency Department Summary on 08-04-2025 Emergency Department Summary [facility] Medical Records Department [address] [place] [address] Emergency Department Summary 08/04/25 MR#: [id number] Acct: [id number] Name: ELIAS SHAH Rep #: [id number] : 1940 85 From: Ted Mtz MD [...] been looking to getting him into a custodial facility recently, but his acute worsening since his surgery have limited their ability to do that quickly as an outpatient. He has had several near falls and has been very weak. [facility] Medical History Macular degeneration Iron deficiency anemia [...] BID 06/22/25 Unknown Hist ory mg-copper 1 mb-bipqna-arbvbt capsule (PreserVision AREDS-2) rosuvastatin 20 mg tablet [...] beverages and coffee eating out: 1-3 times/week adán/caodaism: Cheondoism seatbelt use: always do you feel safe [...] Denies headache (more content not included)... Normal [facility] Eosinophil percentageOrdered By: Ted Mtz on 08-04-2025 Eosinophils/100 WBC (Bld) 0.1 % 0-5 [facility] Erythrocyte distribution wid th ratioOrdered By: Ted Mtz on 08-04-2025 Erythrocyte distribution width (RBC) [Ratio] 16.8 % High 11.6-14.6 [facility] Erythrocyte distribution wid th standard deviationOrdered By: Ted Mtz on 08-04-2025 Erythrocyte distribution width (RBC) [Ratio] 49.2 fl High 35.1-43.9 [facility] Glomerular filtration rate ( GFR) estimation/1.73 sq m using serum, plasma, or whole bOrdered By: Ted Mtz on 08-04-2025 GFR/1.73 sq M.predicted among non-blacks MDRD (S/P/Bld) [Vol rate/Area] 44 mL/min/{1.73_m2} Low >60 [facility] Comment on above: mL/min/1.73m2 CKD-EP I Creatinine Equation (2020) H AND P Exam - [facility] 08-04-2025 H&P Exam - Hospitalist [facility] Medical Records Department [address] [place] [address] H P Exam - Hospitalist 08/04/25 1608 MR#: [id number] Acct: [id number] Name: ELIAS SHAH Rep #: [id number] : 1940 85 From: Morgan Dubon DO PCP: Dr. Husam Khan MD Status:ADM JEET Location: [place] [address] HPI - General General Date of Admission: 08/04/25 Date of Service: 08/04/25 Chief Complaint: Weakness and difficulty with ambulation HPI Narrative ELIAS SHAH, is a 85 M who presented to [facility] ED on 08/04/2025 with weakness and difficulty [...] currently. Will be admitted for further management. [facility] Medical History Macular degeneration Iron deficiency [...] BID 06/22/25 Unknown Hist ory mg-copper 1 yw-dqlgdz-pdurni capsule (PreserVision AREDS-2) rosuvastatin 20 mg tablet [...] Intermediate M (more content not included)... Normal [facility] Hematocrit Auto (Bld) [Volum e fraction]Ordered By: Ted Mtz on 08-04-2025 Hematocrit (Bld) [Volume fraction] 28.7 % Low 40-54 [facility] Hemoglobin measurementOrdere d By: Ted Mtz on 08-04-2025 Hemoglobin (Bld) [Mass/Vol] 8.9 g/dL Low 13.0-16.5 [facility] Hyaline casts LM.LPF (Urine sed) [#/Area]Ordered By: Ted Mtz on 08-04-2025 Hyaline casts (Urine sed) [#/Area] 0 /[LPF] 0-5 [facility] Immature granulocytes/100 WB C Auto (Bld)Ordered By: Ted Mtz on 08-04-2025 Immature granulocytes/100 WBC (Bld) 2.400 % High 0.0-0.9 [facility] Comment on above: IG% - Immature Granu locytes (promyelocytes, myelocytes and metamyelocytes) > 1% indicates that a LEFT SHIFT is Present. Ketones Test strip Ql (U)Ord ered By: Ted Mtz on 08-04-2025 Ketones Ql (U) Negative Negative [facility] Laboratory - Chemistry and C hemistry - challengeOrdered By: Ted Mtz on 08-04-2025 AST [Catalytic activity/Vol] 114 U/L High <38 [facility] Lactic Acidon 08-04-2025 Lactate [Moles/Vol] 1.4 mmol/L Normal 0.0-2.0 [facility] Comment on above: Performed By: #### L 503.6005 #### [facility] Laboratory [address] [facility] [place], [place], [address] Lactate [Moles/Vol] 2.0 mmol/L Normal 0.0-2.0 [facility] Comment on above: Order Comment: Y Result Comment: Crit ical Result(s) Called at 08/04/2025-13:28 by Brittanie Doyle??Results read back by same. Performed By: #### L 100.0100, L500.2500 #### [facility] Laboratory [address] [facility] [place], [place], [address] Lactic acid measurementOrder ed By: Ted Mtz on 08-04-2025 Lactate [Moles/Vol] 1.4 mmol/L 0.0-2.0 [facility] Lactate [Moles/Vol] 2.0 mmol/L 0.0-2.0 [facility] Comment on above: Critical Result(s) C alled at 08/04/2025-13:28 by Brittanie Doyle Results read back by same. MCV (mean corpuscular volume ) determinationOrdered By: Ted Mtz on 08-04-2025 MCV (RBC) [Entitic vol] 82.5 fL 80-94 [facility] Mean corpuscular hemoglobin (MCH) determinationOrdered By: Ted Mtz on 08-04-2025 MCH (RBC) [Entitic mass] 25.6 pg Low 27.0-32.0 [facility] Mean corpuscular hemoglobin concentration (MCHC) determinationOrdered By: Ted Mtz on 08-04-2025 MCHC (RBC) [Mass/Vol] 31.0 g/dL Low 32-36 [facility] Mean platelet volume determi nationOrdered By: Ted Mtz on 08-04-2025 Platelet mean volume (Bld) [Entitic vol] 9.0 fL 6.2-12.0 [facility] Microscopic analysis of urin e for red blood cells (RBC)Ordered By: Ted Mtz on 08-04-2025 Microscopic analysis of urine for red blood cells (RBC) 0-5 SEEN /hpf 0-5 [facility] Monocyte percentageOrdered B y: Ted Mtz on 08-04-2025 Monocytes/100 WBC (Bld) 12.6 % High 0-10 [facility] Mucus LM Ql (Urine sed)Order ed By: Ted Mtz on 08-04-2025 Mucus Ql (Urine sed) 0 SEEN /hpf [facility] Neutrophil percentageOrdered By: Ted Mtz on 08-04-2025 Neutrophils/100 WBC (Bld) 78.2 % High 47-70 [facility] Nitrite Test strip Ql (U)Ord ered By: Ted Mtz on 08-04-2025 Nitrite Ql (U) Negative Negative [facility] No Panel InformationOrdered By: Ted Mtz on 08-04-2025 114 U/L High <38 [facility] Nucleated red blood cell per centageOrdered By: Ted Mtz on 08-04-2025 Nucleated RBC/100 WBC (Bld) [Ratio] 0 % 0-5 [facility] Platelet countOrdered By: Juan Mtz on 08-04-2025 Platelets (Bld) [#/Vol] 234 10*3/uL 150-450 [facility] Potassium measurement (mass/ volume)Ordered By: Ted Mtz on 08-04-2025 Potassium (Unsp spec) [Mass/Vol] 4.3 mmol/L 3.3-5.1 [facility] Protein Test strip Ql (U)Ord ered By: Ted Mtz on 08-04-2025 Protein Ql (U) 30 mg/dl High Negative [facility] RBC Auto (Bld) [#/Vol]Ordere d By: Ted Mtz on 08-04-2025 RBC (Bld) [#/Vol] 3.48 10*6/uL Low 4.6-6.2 [facility] Serum creatinine measurement (mass/volume)Ordered By: Ted Mtz on 08-04-2025 Creatinine [Mass/Vol] 1.53 mg/dL High 0.70-1.20 [facility] Serum globulin measurementOr dered By: Ted Mtz on 08-04-2025 Globulin (S) [Mass/Vol] 3.8 g/dL 2.2-4.2 [facility] Serum glucose measurement (m ass/volume)Ordered By: Ted Mtz on 08-04-2025 Glucose [Mass/Vol] 158 mg/dL High 70-99 [facility] Serum or plasma alanine mccoy otransferase (ALT) measurementOrdered By: Ted Mtz on 08-04-2025 ALT [Catalytic activity/Vol] 83 U/L High <47 [facility] Serum or plasma albumin donna urement (mass/volume)Ordered By: Ted Mtz on 08-04-2025 Albumin [Mass/Vol] 2.7 g/dL Low 3.4-4.8 [facility] Serum or plasma albumin/glob ulin mass ratioOrdered By: Ted Mtz on 08-04-2025 Albumin/Globulin [Mass ratio] 0.7 {ratio} Low 0.9-2.4 [facility] Serum or plasma alkaline salvador sphatase measurementOrdered By: Ted Mtz on 08-04-2025 ALP [Catalytic activity/Vol] 112 U/L 40-129 [facility] Serum or plasma calcium donna urement (mass/volume)Ordered By: Ted Mtz on 08-04-2025 Calcium [Mass/Vol] 8.4 mg/dL 7.6-11.0 [facility] Serum or plasma urea nitroge n measurement (mass/volume)Ordered By: Ted Mtz on 08-04-2025 Urea nitrogen [Mass/Vol] 39 mg/dL High 4-19 [facility] Sodium levelOrdered By: Gopal Mtz on 08-04-2025 Sodium [Moles/Vol] 137 mmol/L 133-145 [facility] Squamous epithelial cells de tection in urine sediment by light microscopyOrdered By: Ted Mtz on 08-04-2025 Epithelial cells.squamous LM Ql (Urine sed) 0-5 SEEN /hpf 0-5 [facility] Total proteinOrdered By: Jamel salazar Kd on 08-04-2025 Protein [Mass/Vol] 6.5 g/dL 5.9-8.4 [facility] Urinalysis, Completeon 08-04 EPI,SQUAMOUS 0-5 SEEN Normal 0-5 [facility] Comment on above: Order Comment: UNK Performed By: #### L 500.4050, L503.0106, L503.6030 #### [facility] Laboratory [address] [place], [address] RBC 0-5 SEEN Normal 0-5 [facility] Comment on above: Order Comment: UNK Performed By: #### L 500.4050, L503.0106, L503.6030 #### [facility] Laboratory [address] [place], [address] WBC 0-5 SEEN Normal 0-5 [facility] Comment on above: Order Comment: UNK Performed By: #### L 500.4050, L503.0106, L503.6030 #### [facility] Laboratory [address] [place], [address] CAST,FINE GRAN 0-5 SEEN Normal 0-5 [facility] Comment on above: Order Comment: UNK Performed By: #### L 500.4050, L503.0106, L503.6030 #### [facility] Laboratory [address] [place], [address] CAST,HYALINE 0-5 SEEN Normal 0-5 [facility] Comment on above: Order Comment: UNK Performed By: #### L 500.4050, L503.0106, L503.6030 #### [facility] Laboratory [address] [place], [address] BACTERIA 0 SEEN Normal None Seen [facility] Comment on above: Order Comment: UNK Performed By: #### L 500.4050, L503.0106, L503.6030 #### [facility] Laboratory [address] [place], [address] Mucus Ql (Urine sed) 0 SEEN Normal [facility] Comment on above: Order Comment: UNK Performed By: #### L 500.4050, L503.0106, L503.6030 #### [facility] Laboratory [address] [place], [address] Urine clarityOrdered By: Jamel Mtz on 08-04-2025 Clarity (U) Sl. Cloudy Clear [facility] Urine color determinationOrd ered By: Ted Mtz on 08-04-2025 Color (U) Yellow Yellow [facility] Urine glucose detectionOrder ed By: Ted Mtz on 08-04-2025 Glucose Ql (U) Normal mg/dl Normal [facility] Urine leukocyte esterase det ection by dipstickOrdered By: Ted Mtz on 08-04-2025 Leukocyte esterase Test strip Ql (U) Negative Negative [facility] Urine pHOrdered By: Ted Mtz on 08-04-2025 pH (U) 5.0 [pH] 5.0 - 8.0 [facility] Urine sediment bacteria coun t by microscopy (number/high power field)Ordered By: Ted Mtz on 08-04-2025 Bacteria LM.HPF (Urine sed) [#/Area] 0 /[HPF] None Seen [facility] Urine sediment fine granular cast count by microscopy (number/low power field)Ordered By: Ted Mtz on 08-04-2025 Fine Granular Casts LM.LPF (Urine sed) [#/Area] 0-5 SEEN /lpf 0-5 [facility] Urine specific gravity measu rementOrdered By: Ted Mtz on 08-04-2025 Specific gravity (U) [Rel density] 1.020 1.002-1.030 [facility] Urine urobilinogen measureme ntOrdered By: Ted Mtz on 08-04-2025 Urobilinogen Ql (U) Normal mg/dl Normal [facility] White blood cell (WBC) count Ordered By: Ted Mtz on 08-04-2025 WBC (Bld) [#/Vol] 14.6 10*3/uL High 4.4-11.0 [facility] White blood cell countOrdere d By: Ted Mtz on 08-04-2025 White blood cell count 0-5 SEEN /hpf 0-5 [facility] Operative Reporton Operative Report [facility] Medical Records Department [address] [place] [address] Operative Report 08/02/25 1807 MR#: [id number] Acct: [id number] Name: ELIAS SHAH Rep #: [id number] : 1940 85 From: Channing Mckeon MD PCP: Dr. 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 Post-Operative Diagnosis: Same Surgery/Procedure Performed: Aortogram, right lower extremity angiogram Intravascular ultra sound right SFA/popliteal artery Angioplasty and covered stent right popliteal artery to exclude pseudoaneurysm sorter operator: No Type of Anesthesia: Local and Sedation,Conscious Procedure Start Time: 08:20 Procedure Stop Time: 09:40 Select all DRAINS/GRAFTS/IMPLANT S that apply: Implanted device Implanted device details: 6 x 10 Newton Viabahn, 7 x 10 Newton Viabahn Estimated Blood Loss: 7 Specimen collected: [...] site the patient was taken to the Custom Designer he was positioned prepped and draped in [...] or dissection. Through the micropuncture sheath a [employer] Analytic[employer] wire was advanced and the micropuncture sheath exchanged for a short 7 Azerbaijani sheath. Through the 7 Azerbaijani sheath an Omni Flush catheter was advanced [...] distal superficial femoral artery. The short 7 Azerbaijani sheath and exchanged (more content not included)... Normal [facility] MR/BMS.BVMichael 08-01-2025 MR/BMS.BVS [facility] [address] [place], [place] [address] OFFICE VISIT Date of Service: 08/01/25 MR#: [id number] Acct: [id number] Name: ELIAS SHAH Rep #: [id number] : 1940 Provider: Dr. Channing Mckeon MD Age/Sex: 85/M Location: [facility] Status: Signed Intake Vital Signs 07/27/25 14:22 [...] BID 06/22/25 08/01/25 His tory mg-copper 1 bt-pufdwi-pckalw capsule (PreserVision AREDS-2) rosuvastatin 20 mg tablet [...] beverages and coffee eating out: 1-3 times/week adán/caodaism: Cheondoism seatbelt use: always do you feel safe [...] foot pain/numbness/altered temperature. 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 (more content not included)... Normal [facility] Venous duplex ultrasound rep ortOrdered By: Channing Mckeon on 07-31-2025 US Vein [facility] [address] [place] [address] Venous Duplex US - Lalo Extrem 07/27/25 1314 MR#: [id number] Acct: [id number] Name: ELIAS SHAH Rep #:[id number] : 1940 85 From: Channing Soliman [...] Dictated: 07/27/25 1314 Date Transcribed: 07/31/25 1230 Mobile Home Set Up Person: Signed [facility] Work Phone: Anion gap in Serum or Plasma Ordered By: Ilana Medrano on 07-27-2025 Anion gap [Moles/Vol] 12 mmol/L 5-15 [facility] BUN/creatinine ratioOrdered By: Ilana Medrano on 07-27-2025 Urea nitrogen/Creatinine [Mass ratio] 16.9 mg/mg - [facility] Basic Metabolic Profile (BMP )on 07-27-2025 BUN/CRE 16.9 RATIO Normal - [facility] Comment on above: Performed By: #### L 500.4050, L503.0106, L503.6030 #### [facility] Laboratory [address] [place], [address] Calcium [Mass/Vol] 9.1 mg/dL Normal 7.6-11.0 [facility] Comment on above: Performed By: #### L 500.4050, L503.0106, L503.6030 #### [facility] Laboratory [address] [place], [address] Chloride [Moles/Vol] 103 mmol/L Normal 98-108 [facility] Comment on above: Performed By: #### L 500.4050, L503.0106, L503.6030 #### [facility] Laboratory [address] [place], [address] CO2 [Moles/Vol] 25.9 mmol/L Normal 21.0-32.0 [facility] Comment on above: Performed By: #### L 500.4050, L503.0106, L503.6030 #### [facility] Laboratory [address] [place], [address] Creatinine [Mass/Vol] 1.15 mg/dL Normal 0.70-1.20 [facility] Comment on above: Performed By: #### L 500.4050, L503.0106, L503.6030 #### [facility] Laboratory [address] [place], [address] ECRCL 45.25 ml/min Low 50-250 [facility] Comment on above: Performed By: #### L 500.4050, L503.0106, L503.6030 #### [facility] Laboratory [address] [place], [address] GAP 12 Normal 5-15 [facility] Comment on above: Performed By: #### L 500.4050, L503.0106, L503.6030 #### [facility] Laboratory [address] [place], [address] GFR/1.73 sq M.predicted among non-blacks MDRD (S/P/Bld) [Vol rate/Area] 62 mL/min/{1.73_m2} Normal >60 [facility] Comment on above: Result Comment: mL/m in/1.73m2 CKD-EPI Creatinine Equation (2020) Performed By: #### L 500.4050, L503.0106, L503.6030 #### [facility] Laboratory [address] [place], [address] Glucose [Mass/Vol] 156 mg/dL High 70-99 [facility] Comment on above: Performed By: #### L 500.4050, L503.0106, L503.6030 #### [facility] Laboratory [address] [place], [address] Potassium [Moles/Vol] 4.1 mmol/L Normal 3.3-5.1 [facility] Comment on above: Performed By: #### L 500.4050, L503.0106, L503.6030 #### [facility] Laboratory [address] [place], [address] Sodium [Moles/Vol] 140 mmol/L Normal 133-145 [facility] Comment on above: Performed By: #### L 500.4050, L503.0106, L503.6030 #### [facility] Laboratory [address] [place], [address] Urea nitrogen [Mass/Vol] 19 mg/dL Normal 4-19 [facility] Comment on above: Performed By: #### L 500.4050, L503.0106, L503.6030 #### [facility] Laboratory [address] [place], [address] CBC-Complete Blood Cnt No Di ffon 07-27-2025 Erythrocyte distribution width (RBC) [Ratio] 15.4 % High 11.6-14.6 [facility] Comment on above: Performed By: #### L 500.4050, L503.0106, L503.6030 #### [facility] Laboratory [address] [place], [address] Hematocrit (Bld) [Volume fraction] 30.7 % Low 40-54 [facility] Comment on above: Performed By: #### L 500.4050, L503.0106, L503.6030 #### [facility] Laboratory [address] [place], [address] Hemoglobin (Bld) [Mass/Vol] 9.3 g/dL Low 13.0-16.5 [facility] Comment on above: Performed By: #### L 500.4050, L503.0106, L503.6030 #### [facility] Laboratory [address] [place], [address] MCH (RBC) [Entitic mass] 24.8 pg Low 27.0-32.0 [facility] Comment on above: Performed By: #### L 500.4050, L503.0106, L503.6030 #### [facility] Laboratory [address] [place], [address] MCHC (RBC) [Mass/Vol] 30.3 g/dL Low 32-36 [facility] Comment on above: Performed By: #### L 500.4050, L503.0106, L503.6030 #### [facility] Laboratory [address] [place], [address] MCV (RBC) [Entitic vol] 81.9 fL Normal 80-94 [facility] Comment on above: Performed By: #### L 500.4050, L503.0106, L503.6030 #### [facility] Laboratory [address] [place], [address] Platelet mean volume (Bld) [Entitic vol] 8.6 fL Normal 6.2-12.0 [facility] Comment on above: Performed By: #### L 500.4050, L503.0106, L503.6030 #### [facility] Laboratory [address] [place], [address] Platelets (Bld) [#/Vol] 282 10*3/uL Normal 150-450 [facility] Comment on above: Performed By: #### L 500.4050, L503.0106, L503.6030 #### [facility] [address] [place], [address] RBC (Bld) [#/Vol] 3.75 10*6/uL Low 4.6-6.2 [facility] Comment on above: Performed By: #### L 500.4050, L503.0106, L503.6030 #### [facility] [address] [place], [address] RDW SD 45.6 fl High 35.1-43.9 [facility] Comment on above: Performed By: #### L 500.4050, L503.0106, L503.6030 #### [facility] [address] [place], [address] WBC (Bld) [#/Vol] 9.5 10*3/uL Normal 4.4-11.0 [facility] Comment on above: Performed By: #### L 500.4050, L503.0106, L503.6030 #### [facility] [address] [place], [address] CTA Abd w/Runoff W/WO Contra markie 07-27-2025 CTA Abd w/Runoff W/WO Contrast [facility] Imaging Services [address] [place], [place] [address] CTA Abd w/Runoff W/WO Contrast MR#: [id number] Acct: [id number] Name: ELIAS SHAH Rep #: [id number] : 1940 M 85 From: Marv Curtis MD PCP: Dr. Husam Khan MD Status: REG ER Study: CTA Abd w/Runoff W/WO Contrast Date of Exam: 0 07/27/25 Exam# [id number] Ordering Dr: Ilana Medrano DO PROCEDURE: CTA [...] mentioned in the clinical history. Reading Location: [id number] CC: Dr. Ilana Medrano DO; Dr. Husam Khan MD Mobile Home Set Up Person: Signed Normal [facility] Carbon dioxide, total [Moles /volume] in Central venous bloodOrdered By: Ilana Medrano on 07-27-2025 CO2 [Moles/Vol] 25.9 mmol/L 21.0-32.0 [facility] Chloride assayOrdered By: Anatoly Medrano on 07-27-2025 Chloride [Moles/Vol] 103 mmol/L 98-108 [facility] Emergency Department Summary on 07-27-2025 Emergency Department Summary [facility] Medical Records Department [address] [place] [address] Emergency Department Summary 07/27/25 MR#: [id number] Acct: [id number] Name: ELIAS SHAH Rep #: [id number] : 1940 85 From: Ilana Medrano DO [...] all of the antibiotics and doctors appointments. [facility] Medical History Macular degeneration Iron deficiency anemia [...] BID 06/22/25 Unknown Hist ory mg-copper 1 po-akhgca-eerull capsule (PreserVision AREDS-2) rosuvastatin 20 mg tablet [...] 1-3 times/wee (more content not included)... Normal [facility] Erythrocyte distribution wid th ratioOrdered By: Ilana Medrano on 07-27-2025 Erythrocyte distribution width (RBC) [Ratio] 15.4 % High 11.6-14.6 [facility] Erythrocyte distribution wid th standard deviationOrdered By: Ilana Medrano on 07-27-2025 Erythrocyte distribution width (RBC) [Ratio] 45.6 fl High 35.1-43.9 [facility] Glomerular filtration rate ( GFR) estimation/1.73 sq m using serum, plasma, or whole bOrdered By: Ilana Medrano on 07-27-2025 GFR/1.73 sq M.predicted among non-blacks MDRD (S/P/Bld) [Vol rate/Area] 62 mL/min/{1.73_m2} >60 [facility] Comment on above: mL/min/1.73m2 CKD-EP I Creatinine Equation (2020) Hematocrit Auto (Bld) [Volum e fraction]Ordered By: Ilana Medrano on 07-27-2025 Hematocrit (Bld) [Volume fraction] 30.7 % Low 40-54 [facility] Hemoglobin measurementOrdere d By: Ilana Medrano on 07-27-2025 Hemoglobin (Bld) [Mass/Vol] 9.3 g/dL Low 13.0-16.5 [facility] MCV (mean corpuscular volume ) determinationOrdered By: Ilana Medrano on 07-27-2025 MCV (RBC) [Entitic vol] 81.9 fL 80-94 [facility] Mean corpuscular hemoglobin (MCH) determinationOrdered By: Ilana Medrano on 07-27-2025 MCH (RBC) [Entitic mass] 24.8 pg Low 27.0-32.0 [facility] Mean corpuscular hemoglobin concentration (MCHC) determinationOrdered By: Ilana Medrano on 07-27-2025 MCHC (RBC) [Mass/Vol] 30.3 g/dL Low 32-36 [facility] Mean platelet volume determi nationOrdered By: Ilana Medrano on 07-27-2025 Platelet mean volume (Bld) [Entitic vol] 8.6 fL 6.2-12.0 [facility] Platelet countOrdered By: Anatoly Medrano on 07-27-2025 Platelets (Bld) [#/Vol] 282 10*3/uL 150-450 [facility] Potassium measurement (mass/ volume)Ordered By: Ilana Medrano on 07-27-2025 Potassium (Unsp spec) [Mass/Vol] 4.1 mmol/L 3.3-5.1 [facility] RBC Auto (Bld) [#/Vol]Ordere d By: Ilana Medrano on 07-27-2025 RBC (Bld) [#/Vol] 3.75 10*6/uL Low 4.6-6.2 [facility] Serum creatinine measurement (mass/volume)Ordered By: Ilana Medrano on 07-27-2025 Creatinine [Mass/Vol] 1.15 mg/dL 0.70-1.20 [facility] Serum glucose measurement (m ass/volume)Ordered By: Ilana Medrano on 07-27-2025 Glucose [Mass/Vol] 156 mg/dL High 70-99 [facility] Serum or plasma calcium donna urement (mass/volume)Ordered By: Ilana Medrano on 07-27-2025 Calcium [Mass/Vol] 9.1 mg/dL 7.6-11.0 [facility] Serum or plasma urea nitroge n measurement (mass/volume)Ordered By: Ilana Medrano on 07-27-2025 Urea nitrogen [Mass/Vol] 19 mg/dL 4-19 [facility] Sodium levelOrdered By: Demi Medrano on 07-27-2025 Sodium [Moles/Vol] 140 mmol/L 133-145 [facility] Venous Duplex US - Lalo Extre [facility] 07-27-2025 Venous Duplex US - Lalo Extrem [facility] Cardiovascular Services [address] [place] [address] Venous Duplex US - Lalo Extrem 07/27/25 1314 MR#: [id number] Acct: [id number] Name: ELIAS SHAH Rep #: [id number] : 1940 85 From: Channing Mckeon MD Attending Dr: Dr. uHsam Khan MD Status: REG CLI Ordering Dr: [...] Dictated: 07/27/25 1314 Date Transcribed: 07/31/25 1230 Mobile Home Set Up Person: Signed Normal [facility] White blood cell (WBC) count Ordered By: Ilana Medrano on 07-27-2025 WBC (Bld) [#/Vol] 9.5 10*3/uL 4.4-11.0 [facility] Influenza virus A and B and SARS-CoV-2 (COVID-19) and Respiratory syncytial virus RNAOrdered By: Husam Khan on 07-26-2025 SARS-CoV-2 (COVID-19) RNA TRICIA+probe Ql (Unsp spec) [facility] M100.678on 07-26-2025 M100.678 Pending SARS-CoV-2 (COVID 19) Negative INFLUENZA A Negative INFLUENZA B Negative RSV PCR Negative Normal [facility] Comment on above: Performed By: #### L 100.0100, L500.2500 #### [facility] Laboratory [address] [place], [place], [address] Cardiology Visit Reporton Cardiology Visit Report [facility] [address] [place], [place] [address] OFFICE VISIT Date of Service: 06/22/25 MR#: [id number] Acct: [id number] Name: ELIAS SHAH Rep #: [id number] : 1940 Provider: MAHENDRA Kirkland Age/Sex: 85/M Location: [facility] Status: Signed HPI HPI History [...] Intake Visit Reasons: Overdue 1 Y FU Infant Caregiver Required: No Accompanied by: Sister Is patient [...] BID 06/22/25 06/22/25 His tory mg-copper 1 wl-rpsuhm-qjxyia capsule (PreserVision AREDS-2) Ejection fraction %: 65 [...] beverages and coffee eating out: 1-3 times/week adán/caodaism: Cheondoism seatbelt use: always do you feel safe [...] dizziness, lighthe (more content not included)... Normal [facility] Oncology Visit Reporton 04-25 Oncology Visit Report [facility] [place] [address] OFFICE VISIT Date of Service: 05/22/25 1037 MR#: [id number] Acct: [id number] Name: ELIAS SHAH Rep #: [id number] : 1940 From: Geoffrey Garza MD Age/Sex: 85/M Location: [facility] [place] Status: Signed HPI Subjective Date of [...] and again MGUS could not be excluded. [facility] Medical History (Updated 05/22/25 @ 10:41 by [...] beverages and coffee eating out: 1-3 times/week adán/caodaism: Cheondoism seatbelt use: always do you feel safe [...] as docu (more content not included)... Normal [facility] DAMARIS + Protein Elect, Serumon 05-09-2025 Albumin [Mass/Vol] 3.1 g/dL Normal 2.9-4.4 [facility] Comment on above: Order Comment: NUNK Performed By: #### L 100.0100, L500.2500 #### [facility] [address] [place], [address] Albumin/Globulin [Mass ratio] 0.9 {ratio} Normal 0.7-1.7 [facility] Comment on above: Order Comment: NUNK Performed By: #### L 100.0100, L500.2500 #### [facility] [address] [place], [address] YOOXL-4-VJMA 0.3 g/dL Normal 0.0-0.4 [facility] Comment on above: Order Comment: NUNK Performed By: #### L 100.0100, L500.2500 #### [facility] [address] [place], [address] VDDPU-3-QIAL 1.0 g/dL Normal 0.4-1.0 [facility] Comment on above: Order Comment: NUNK Performed By: #### L 100.0100, L500.2500 #### [facility] [address] [place], [address] BETA GLOBULIN 1.0 g/dL Normal 0.7-1.3 [facility] Comment on above: Order Comment: NUNK Performed By: #### L 100.0100, L500.2500 #### [facility] [address] [place], [address] GAMMA GLOBULIN 1.5 g/dL Normal 0.4-1.8 [facility] Comment on above: Order Comment: NUNK Performed By: #### L 100.0100, L500.2500 #### [facility] [address] [place], [address] Globulin (S) [Mass/Vol] 3.8 g/dL Normal 2.2-3.9 [facility] Comment on above: Order Comment: NUNK Performed By: #### L 100.0100, L500.2500 #### [facility] [address] [place], [address] DAMARIS RESULT,S Comment Abnormal . [facility] Comment on above: Order Comment: NUNK Result Comment: Immu nofixation shows IgM monoclonal protein with kappa light chain specificity. Immunofixation shows IgM monoclonal protein with lambda light chain specificity. Immunofixation shows IgG monoclonal protein with lambda light chain specificity. Performed By: #### L 100.0100, L500.2500 #### [facility] [address] [place], [address] IMMUNOGLOB A QN 472 mg/dL High 61-437 [facility] Comment on above: Order Comment: NUNK Performed By: #### L 100.0100, L500.2500 #### [facility] [address] [place], [address] IMMUNOGLOB G QN 1475 mg/dL Normal 603-1613 [facility] Comment on above: Order Comment: NUNK Performed By: #### L 100.0100, L500.2500 #### [facility] [address] [place], [address] IMMUNOGLOB M QN 179 mg/dL High 15-143 [facility] Comment on above: Order Comment: NUNK Performed By: #### L 100.0100, L500.2500 #### [facility] [address] [place], [address] M-William Comment: Normal Not Observed [facility] Comment on above: Order Comment: NUNK Result Comment: Lanier clonal IgM lambda = 0.2 g/dl Monoclonal IgG lambda = 0.2 g/dl Monoclonal IgM kappa = 0.1 g/dl Performed By: #### L 100.0100, L500.2500 #### [facility] [address] [place], [address] NOTE: Comment Normal . [facility] Comment on above: Order Comment: NUNK Result Comment: Prot ein electrophoresis scan will follow via computer, mail, or disease management nurse delivery. Performed at: [address] [id number] [employer] Eradicator: Alcides Alicea PhD, Phone: [phone] Performed By: #### L 100.0100, L500.2500 #### [facility] [address] [place], [place], [address] Protein [Mass/Vol] 6.9 g/dL Normal 6.0-8.5 [facility] Comment on above: Order Comment: NUNK Performed By: #### L 100.0100, L500.2500 #### [facility] [address] [place], [place], [address] Absolute lymphocyte countOrd ered By: Geoffrey Garza on 05-04-2025 Lymphocytes Auto (Unsp spec) [#/Vol] 2.54 10*3/uL 0.83-4.51 [facility] Absolute neutrophil countOrd ered By: Geoffrey Garza on 05-04-2025 Neutrophils (Bld) [#/Vol] 1.3 10*3/uL Low 2.0-7.7 [facility] Albumin Elph [Mass/Vol]Order ed By: Geoffrey Garza on 05-04-2025 Albumin [Mass/Vol] 3.1 g/dL 2.9-4.4 [facility] Anion gap in Serum or Plasma Ordered By: Geoffrey Garza on 05-04-2025 Anion gap [Moles/Vol] 9 mmol/L 5-15 [facility] Automated lymphocyte count a s percentage of total leukocytesOrdered By: Geoffrey Garza on 05-04-2025 Lymphocytes/100 WBC Auto (Unsp spec) 50.5 % High 19-41 [facility] BUN/creatinine ratioOrdered By: Geoffrey Garza on 05-04-2025 Urea nitrogen/Creatinine [Mass ratio] 11.4 mg/mg 10-20 [facility] Basophil percentageOrdered B y: Geoffrey Graza on 05-04-2025 Basophils/100 WBC (Bld) 0.4 % 0-1 [facility] Bilirubin, totalOrdered By: Geoffrey Garza on 05-04-2025 Bilirubin [Mass/Vol] 0.33 mg/dL 0.00-1.30 [facility] CBC W/Diff, Automatedon 04-23-2024 Absolute Lymph 2.54 X10 3/uL Normal 0.83-4.51 [facility] Comment on above: Performed By: #### L 100.0100, L500.2500 #### [facility] [address] [place], [address] Absolute Neut 1.3 X10 3/uL Low 2.0-7.7 [facility] Comment on above: Performed By: #### L 100.0100, L500.2500 #### [facility] [address] [place], [address] Basophils/100 WBC (Bld) 0.4 % Normal 0-1 [facility] Comment on above: Performed By: #### L 100.0100, L500.2500 #### [facility] [address] [place], [address] Eosinophils/100 WBC (Bld) 1.4 % Normal 0-5 [facility] Comment on above: Performed By: #### L 100.0100, L500.2500 #### [facility] [address] [place], [address] Erythrocyte distribution width (RBC) [Ratio] 15.1 % High 11.6-14.6 [facility] Comment on above: Performed By: #### L 100.0100, L500.2500 #### [facility] [address] [place], [address] Hematocrit (Bld) [Volume fraction] 36.5 % Low 40-54 [facility] Comment on above: Performed By: #### L 100.0100, L500.2500 #### [facility] [address] [place], [address] Hemoglobin (Bld) [Mass/Vol] 11.4 g/dL Low 13.0-16.5 [facility] Comment on above: Performed By: #### L 100.0100, L500.2500 #### [facility] [address] [place], [address] IG% 0.800 Normal 0.0-0.9 [facility] Comment on above: Result Comment: IG% - Immature Granulocytes (promyelocytes, myelocytes and metamyelocytes) > 1% indicates that a LEFT SHIFT is Present. Performed By: #### L 100.0100, L500.2500 #### [facility] [address] [place], [address] Lymphocytes/100 WBC (Bld) 50.5 % High 19-41 [facility] Comment on above: Performed By: #### L 100.0100, L500.2500 #### [facility] [address] [place], [address] MCH (RBC) [Entitic mass] 27.7 pg Normal 27.0-32.0 [facility] Comment on above: Performed By: #### L 100.0100, L500.2500 #### [facility] [address] [place], [address] MCHC (RBC) [Mass/Vol] 31.2 g/dL Low 32-36 [facility] Comment on above: Performed By: #### L 100.0100, L500.2500 #### [facility] [address] [place], [address] MCV (RBC) [Entitic vol] 88.8 fL Normal 80-94 [facility] Comment on above: Performed By: #### L 100.0100, L500.2500 #### [facility] [address] [place], [address] Monocytes/100 WBC (Bld) 22.1 % High 0-10 [facility] Comment on above: Performed By: #### L 100.0100, L500.2500 #### [facility] [address] [place], [address] Neutrophils/100 WBC (Bld) 24.8 % Low 47-70 [facility] Comment on above: Performed By: #### L 100.0100, L500.2500 #### [facility] [address] [place], [address] Nucleated RBC (Bld) [#/Vol] 0 10*3/uL Normal 0-5 [facility] Comment on above: Performed By: #### L 100.0100, L500.2500 #### [facility] [address] [place], [address] Platelet mean volume (Bld) [Entitic vol] 8.9 fL Normal 6.2-12.0 [facility] Comment on above: Performed By: #### L 100.0100, L500.2500 #### [facility] [address] [place], [address] Platelets (Bld) [#/Vol] 210 10*3/uL Normal 150-450 [facility] Comment on above: Performed By: #### L 100.0100, L500.2500 #### [facility] [address] [place], [address] RBC (Bld) [#/Vol] 4.11 10*6/uL Low 4.6-6.2 [facility] Comment on above: Performed By: #### L 100.0100, L500.2500 #### [facility] [address] [place], [address] RDW SD 49.2 fl High 35.1-43.9 [facility] Comment on above: Performed By: #### L 100.0100, L500.2500 #### [facility] [address] [place], [address] WBC (Bld) [#/Vol] 5.0 10*3/uL Normal 4.4-11.0 [facility] Comment on above: Performed By: #### L 100.0100, L500.2500 #### [facility] [address] [place], [address] Carbon dioxide, total [Moles /volume] in Central venous bloodOrdered By: Geoffrey Garza on 05-04-2025 CO2 [Moles/Vol] 26.7 mmol/L 21.0-32.0 [facility] Chloride assayOrdered By: Cheri Garza on 05-04-2025 Chloride [Moles/Vol] 102 mmol/L 98-108 [facility] Comprehensive Metabolic Prof ilon 05-04-2025 Albumin [Mass/Vol] 3.6 g/dL Normal 3.4-4.8 [facility] Comment on above: Order Comment: UNK Performed By: #### L 500.4050, L503.0106, L503.6030 #### [facility] [address] [place], [address] Albumin/Globulin [Mass ratio] 1.0 {ratio} Normal 0.9-2.4 [facility] Comment on above: Order Comment: UNK Performed By: #### L 500.4050, L503.0106, L503.6030 #### [facility] [address] [place], [address] ALK PHOS 96 U/L Normal 40-129 [facility] Comment on above: Order Comment: UNK Performed By: #### L 500.4050, L503.0106, L503.6030 #### [facility] [address] [place], [address] ALT [Catalytic activity/Vol] 6 U/L Normal <=46 [facility] Comment on above: Order Comment: UNK Performed By: #### L 500.4050, L503.0106, L503.6030 #### [facility] [address] [place], [address] AST [Catalytic activity/Vol] 20 U/L Normal <=37 [facility] Comment on above: Order Comment: UNK Performed By: #### L 500.4050, L503.0106, L503.6030 #### [facility] [address] [place], [address] Bilirubin [Mass/Vol] 0.33 mg/dL Normal 0.00-1.30 [facility] Comment on above: Order Comment: UNK Performed By: #### L 500.4050, L503.0106, L503.6030 #### [facility] [address] [place], [address] BUN/CRE 11.4 RATIO Normal 10-20 [facility] Comment on above: Order Comment: UNK Performed By: #### L 500.4050, L503.0106, L503.6030 #### [facility] [address] [place], [address] Calcium [Mass/Vol] 8.8 mg/dL Normal 7.6-11.0 [facility] Comment on above: Order Comment: UNK Performed By: #### L 500.4050, L503.0106, L503.6030 #### [facility] [address] [place], [address] Chloride [Moles/Vol] 102 mmol/L Normal 98-108 [facility] Comment on above: Order Comment: UNK Performed By: #### L 500.4050, L503.0106, L503.6030 #### [facility] [address] [place], [address] CO2 [Moles/Vol] 26.7 mmol/L Normal 21.0-32.0 [facility] Comment on above: Order Comment: UNK Performed By: #### L 500.4050, L503.0106, L503.6030 #### [facility] [address] [place], [address] Creatinine [Mass/Vol] 1.14 mg/dL Normal 0.70-1.20 [facility] Comment on above: Order Comment: UNK Performed By: #### L 500.4050, L503.0106, L503.6030 #### [facility] [address] [place], [address] ECRCL 49.94 ml/min Low 50-250 [facility] Comment on above: Order Comment: UNK Performed By: #### L 500.4050, L503.0106, L503.6030 #### [facility] [address] [place], [address] GAP 9 Normal 5-15 [facility] Comment on above: Order Comment: UNK Performed By: #### L 500.4050, L503.0106, L503.6030 #### [facility] [address] [place], [address] GFR/1.73 sq M.predicted among non-blacks MDRD (S/P/Bld) [Vol rate/Area] 62 mL/min/{1.73_m2} Normal >60 [facility] Comment on above: Order Comment: UNK Result Comment: mL/m in/1.73m2 CKD-EPI Creatinine Equation (2020) Performed By: #### L 500.4050, L503.0106, L503.6030 #### [facility] [address] [place], [address] Globulin (S) [Mass/Vol] 3.6 g/dL Normal 2.2-4.2 [facility] Comment on above: Order Comment: UNK Performed By: #### L 500.4050, L503.0106, L503.6030 #### [facility] [address] [place], [address] Glucose [Mass/Vol] 90 mg/dL Normal 70-99 [facility] Comment on above: Order Comment: UNK Performed By: #### L 500.4050, L503.0106, L503.6030 #### [facility] [address] [place], [address] Potassium [Moles/Vol] 4.6 mmol/L Normal 3.3-5.1 [facility] Comment on above: Order Comment: UNK Performed By: #### L 500.4050, L503.0106, L503.6030 #### [facility] [address] [place], [address] Sodium [Moles/Vol] 138 mmol/L Normal 133-145 [facility] Comment on above: Order Comment: UNK Performed By: #### L 500.4050, L503.0106, L503.6030 #### [facility] [address] [place], [address] T PROT 7.2 g/dL Normal 5.9-8.4 [facility] Comment on above: Order Comment: UNK Performed By: #### L 500.4050, L503.0106, L503.6030 #### [facility] [address] [place], [address] Urea nitrogen [Mass/Vol] 13 mg/dL Normal 4-19 [facility] Comment on above: Order Comment: UNK Performed By: #### L 500.4050, L503.0106, L503.6030 #### [facility] [address] [place], [address] Eosinophil percentageOrdered By: Geoffrey Garza on 05-04-2025 Eosinophils/100 WBC (Bld) 1.4 % 0-5 [facility] Erythrocyte distribution wid th ratioOrdered By: Geoffrey Garza on 05-04-2025 Erythrocyte distribution width (RBC) [Ratio] 15.1 % High 11.6-14.6 [facility] Erythrocyte distribution wid th standard deviationOrdered By: Geoffrey Garza on 05-04-2025 Erythrocyte distribution width (RBC) [Ratio] 49.2 fl High 35.1-43.9 [facility] Ferritinon 05-04-2025 Ferritin [Mass/Vol] 78 ng/mL Normal 37-417 [facility] Comment on above: Performed By: #### L 100.0100, L500.2500 #### [facility] [address] [place], [place], [id number] Glomerular filtration rate ( GFR) estimation/1.73 sq m using serum, plasma, or whole bOrdered By: Geoffrey Garza on 05-04-2025 GFR/1.73 sq M.predicted among non-blacks MDRD (S/P/Bld) [Vol rate/Area] 62 mL/min/{1.73_m2} >60 [facility] Comment on above: mL/min/1.73m2 CKD-EP I Creatinine Equation (2020) Hematocrit Auto (Bld) [Volum e fraction]Ordered By: Geoffrey Garza on 05-04-2025 Hematocrit (Bld) [Volume fraction] 36.5 % Low 40-54 [facility] Hemoglobin measurementOrdere d By: Geoffrey Garza on 05-04-2025 Hemoglobin (Bld) [Mass/Vol] 11.4 g/dL Low 13.0-16.5 [facility] Immature granulocytes/100 WB C Auto (Bld)Ordered By: Geoffrey Garza on 05-04-2025 Immature granulocytes/100 WBC (Bld) 0.800 % 0.0-0.9 [facility] Comment on above: IG% - Immature Granu locytes (promyelocytes, myelocytes and metamyelocytes) > 1% indicates that a LEFT SHIFT is Present. Interpretation of serum or p lasma protein pattern by immunofixation (narrative resultOrdered By: Geoffrey Garza on 05-04-2025 Protein Fractions Immunofixation Carlin [Interp] Comment: g/dL Not Observed [facility] Comment on above: Monoclonal IgM lambd a = 0.2 g/dlMonoclonal IgG lambda = 0.2 g/dlMonoclonal IgM kappa = 0.1 g/dl Iron measurement (mass/mass) Ordered By: Geoffrey Garza on 05-04-2025 Iron (Unsp spec) [Mass/Mass] 34 ug/dL Low 65-175 [facility] Iron+Iron Binding Capacityon 05-04-2025 TIBC 222 ug/dL Low 250-450 [facility] Comment on above: Order Comment: UNK Performed By: #### L 500.4050, L503.0106, L503.6030 #### [facility] [address] [place], [address] Laboratory - Chemistry and C hemistry - challengeOrdered By: Geoffrey Garza on 05-04-2025 AST [Catalytic activity/Vol] 20 U/L <38 [facility] MCV (mean corpuscular volume ) determinationOrdered By: Geoffrey Garza on 05-04-2025 MCV (RBC) [Entitic vol] 88.8 fL 80-94 [facility] Mean corpuscular hemoglobin (MCH) determinationOrdered By: Geoffrey Garza on 05-04-2025 MCH (RBC) [Entitic mass] 27.7 pg 27.0-32.0 [facility] Mean corpuscular hemoglobin concentration (MCHC) determinationOrdered By: Geoffrey Garza on 05-04-2025 MCHC (RBC) [Mass/Vol] 31.2 g/dL Low 32-36 [facility] Mean platelet volume determi nationOrdered By: Geoffrey Garza on 05-04-2025 Platelet mean volume (Bld) [Entitic vol] 8.9 fL 6.2-12.0 [facility] Monocyte percentageOrdered B y: Geoffrey Garza on 05-04-2025 Monocytes/100 WBC (Bld) 22.1 % High 0-10 [facility] Neutrophil percentageOrdered By: [facility] on 05-04-2025 Neutrophils/100 WBC (Bld) 24.8 % Low 47-70 [facility] No Panel InformationOrdered By: Geoffrey Garza on 05-04-2025 Addendum Document Comment . [facility] Comment on above: Protein electrophore sis scan will follow via computer,mail, or disease management nurse delivery.Performed at: - [facility] [id number] Director: Alcides Alicea PhD, Phone: [phone] Unsaturated Iron Binding Capacity 188 ug/dL Low 228-428 [facility] 20 U/L <38 [facility] 188 ug/dL Low 228-428 [facility] Nucleated red blood cell per centageOrdered By: Geoffrey Garza on 05-04-2025 Nucleated RBC/100 WBC (Bld) [Ratio] 0 % 0-5 [facility] Platelet countOrdered By: Cheri Garza on 05-04-2025 Platelets (Bld) [#/Vol] 210 10*3/uL 150-450 [facility] Potassium measurement (mass/ volume)Ordered By: Geoffrey Garza on 05-04-2025 Potassium (Unsp spec) [Mass/Vol] 4.6 mmol/L 3.3-5.1 [facility] RBC Auto (Bld) [#/Vol]Ordere d By: Geoffrey Garza on 05-04-2025 RBC (Bld) [#/Vol] 4.11 10*6/uL Low 4.6-6.2 [facility] Retic Panelon 05-04-2025 IM RET FRACTION 25.40 High 3.00-15.90 [facility] Comment on above: Performed By: #### L 100.0100, L500.2500 #### [facility] [address] [place], [place], [id number] RET-HE 28.5 pg Low 30-35 [facility] Comment on above: Performed By: #### L 100.0100, L500.2500 #### [facility] [address] [place], [address] Retic Count 2.45 High 0.5-1.5 [facility] Comment on above: Performed By: #### L 100.0100, L500.2500 #### [facility] [address] [place], [place], [id number] Reticulocyte hemoglobin equi valent (RET-He) measurementOrdered By: Geoffrey Garza on 05-04-2025 Hemoglobin (Reticulocytes) [Entitic mass] 28.5 pg Low 30-35 [facility] Reticulocytes Auto (Bld) [#/ Vol]Ordered By: Geoffrey Garza on 05-04-2025 Reticulocytes/100 RBC (Bld) 2.45 % High 0.5-1.5 [facility] Serum creatinine measurement (mass/volume)Ordered By: Geoffrey Garza on 05-04-2025 Creatinine [Mass/Vol] 1.14 mg/dL 0.70-1.20 [facility] Serum globulin measurement ( mass/volume)Ordered By: Geoffrey Garza on 05-04-2025 Globulin (S) [Mass/Vol] 3.8 g/dL 2.2-3.9 [facility] Serum glucose measurement (m ass/volume)Ordered By: Geoffrey Garza on 05-04-2025 Glucose [Mass/Vol] 90 mg/dL 70-99 [facility] Serum or plasma IgA measurem ent (mass/volume)Ordered By: Geoffrey Garza on 05-04-2025 IgA [Mass/Vol] 472 mg/dL High 61-437 [facility] Serum or plasma IgG measurem ent (mass/volume)Ordered By: Geoffrey Garza on 05-04-2025 IgG [Mass/Vol] 1475 mg/dL 603-1613 [facility] Serum or plasma alanine mccoy otransferase (ALT) measurementOrdered By: Geoffrey Garza on 05-04-2025 ALT [Catalytic activity/Vol] 6 U/L <47 [facility] Serum or plasma albumin donna urement (mass/volume)Ordered By: Geoffrey Garza on 05-04-2025 Albumin [Mass/Vol] 3.6 g/dL 3.4-4.8 [facility] Serum or plasma albumin/glob ulin mass ratioOrdered By: Geoffrey Garza on 05-04-2025 Albumin/Globulin [Mass ratio] 1.0 {ratio} 0.9-2.4 [facility] Serum or plasma alkaline salvador sphatase measurementOrdered By: Geoffrey Garza on 05-04-2025 ALP [Catalytic activity/Vol] 96 U/L 40-129 [facility] Serum or plasma alpha 1 glob ulin measurement by electrophoresis (mass/volume)Ordered By: Geoffrey Garza on 05-04-2025 Alpha 1 globulin Elph [Mass/Vol] 0.3 g/dL 0.0-0.4 [facility] Alpha 1 globulin Elph [Mass/Vol] 1.0 g/dL 0.4-1.0 [facility] Serum or plasma beta globuli n measurement by electrophoresis (mass/volume)Ordered By: Geoffrey Garza on 05-04-2025 Beta globulin Elph [Mass/Vol] 1.0 g/dL 0.7-1.3 [facility] Serum or plasma calcium donna urement (mass/volume)Ordered By: Geoffrey Garza on 05-04-2025 Calcium [Mass/Vol] 8.8 mg/dL 7.6-11.0 [facility] Serum or plasma ferritin yosef surement (mass/volume)Ordered By: Geoffrey Garza on 05-04-2025 Ferritin [Mass/Vol] 78 ng/mL 37-417 [facility] Serum or plasma gamma globul in measurement by electrophoresis (mass/volume)Ordered By: Geoffrey Garza on 05-04-2025 Gamma globulin Elph [Mass/Vol] 1.5 g/dL 0.4-1.8 [facility] Serum or plasma immunoelectr ophoresis interpretation (nominal result)Ordered By: Geoffrey Garza on 05-04-2025 Interpretation IEP [Interp] Comment High . [facility] Comment on above: Immunofixation shows IgM monoclonal protein with kappalight chain specificity.Immunofixation shows IgM monoclonal protein with lambdalight chain specificity.Immunofixation shows IgG monoclonal protein with lambdalight chain specificity. Serum or plasma iron saturat ion measurement (mass fraction)Ordered By: Geoffrey Garza on 05-04-2025 Iron saturation [Mass fraction] 15.0 % 9-55 [facility] Comment on above: Previous reported re sult: 15.0 %Edited by: RADAMES on 05/04/25:1655 Serum or plasma protein donna urement (mass/volume)Ordered By: Geoffrey Garza on 05-04-2025 Protein [Mass/Vol] 6.9 g/dL 6.0-8.5 [facility] Serum or plasma urea nitroge n measurement (mass/volume)Ordered By: Geoffrey Greg on 05-04-2025 Urea nitrogen [Mass/Vol] 13 mg/dL 4-19 [facility] Sodium levelOrdered By: Leroy vazquez Greg on 05-04-2025 Sodium [Moles/Vol] 138 mmol/L 133-145 [facility] Total proteinOrdered By: Polo sabillon Greg on 05-04-2025 Protein [Mass/Vol] 7.2 g/dL 5.9-8.4 [facility] Vitamin B12on 05-04-2025 Cobalamin (Vitamin B12) [Mass/Vol] 1485 pg/mL High 180-914 [facility] Comment on above: Performed By: #### L 500.4050, L503.0106, L503.6030 #### [facility] [address] [place] [address], [id number] Vitamin B12 ser/plasOrdered By: Geoffrey Greg on 05-04-2025 Cobalamin (Vitamin B12) [Mass/Vol] 1485 pg/mL High 180-914 [facility] White blood cell (WBC) count Ordered By: Geoffrey Greg on 05-04-2025 WBC (Bld) [#/Vol] 5.0 10*3/uL 4.4-11.0 [facility] Absolute lymphocyte countOrd ered By: Husam Khan on 12-29-2024 Lymphocytes Auto (Unsp spec) [#/Vol] 2.27 10*3/uL 0.83-4.51 [facility] Absolute neutrophil countOrd ered By: Husam Khan on 12-29-2024 Neutrophils (Bld) [#/Vol] 1.2 10*3/uL Low 2.0-7.7 [facility] Albumin to globulin ratioOrd ered By: Husam Khan on 12-29-2024 Albumin/Globulin [Mass ratio] 0.7 {ratio} Low 0.9-2.4 [facility] Automated lymphocyte count a s percentage of total leukocytesOrdered By: Husam Khan on 12-29-2024 Lymphocytes/100 WBC Auto (Unsp spec) 53.0 % High 19-41 [facility] Basophil percentageOrdered B y: Husam Khan on 12-29-2024 Basophils/100 WBC (Bld) 0.2 % 0-1 [facility] Bilirubin, totalOrdered By: Husam Farrisok on 12-29-2024 Bilirubin [Mass/Vol] 0.40 mg/dL 0.20-1.00 [facility] Comment on above: For patients on eltr ombopag therapy, use of Dimension Castile TBIL is not recommended. Blood urea nitrogen (BUN)/cr eatinine ratioOrdered By: Husam Khan on 12-29-2024 Urea nitrogen/Creatinine [Mass ratio] 9.6 mg/mg Low 10-20 [facility] CBC W/Diff, Automatedon Absolute Lymph 2.27 X10 3/uL Normal 0.83-4.51 [facility] Comment on above: Performed By: #### L 503.6005 #### [facility] [address] [place], [address] Absolute Neut 1.2 X10 3/uL Low 2.0-7.7 [facility] Comment on above: Performed By: #### L 503.6005 #### [facility] [address] [place], [address] Basophils/100 WBC (Bld) 0.2 % Normal 0-1 [facility] Comment on above: Performed By: #### L 503.6005 #### [facility] [address] [place], [address] Eosinophils/100 WBC (Bld) 1.6 % Normal 0-5 [facility] Comment on above: Performed By: #### L 503.6005 #### [facility] [address] [place], [address] Erythrocyte distribution width (RBC) [Ratio] 15.0 % High 11.6-14.6 [facility] Comment on above: Performed By: #### L 503.6005 #### [facility] [address] [place], [address] Hematocrit (Bld) [Volume fraction] 38.9 % Low 40-54 [facility] Comment on above: Performed By: #### L 503.6005 #### [facility] [address] [place], [address] Hemoglobin (Bld) [Mass/Vol] 12.3 g/dL Low 13.0-16.5 [facility] Comment on above: Performed By: #### L 503.6005 #### [facility] [address] [place], [address] IG% 0.500 Normal 0.0-0.9 [facility] Comment on above: Result Comment: IG% - Immature Granulocytes (promyelocytes, myelocytes and metamyelocytes) > 1% indicates that a LEFT SHIFT is Present. Performed By: #### L 503.6005 #### [facility] [address] [place], [address] Lymphocytes/100 WBC (Bld) 53.0 % High 19-41 [facility] Comment on above: Performed By: #### L 503.6005 #### [facility] [address] [place], [address] MCH (RBC) [Entitic mass] 28.7 pg Normal 27.0-32.0 [facility] Comment on above: Performed By: #### L 503.6005 #### [facility] [address] [place], [address] MCHC (RBC) [Mass/Vol] 31.6 g/dL Low 32-36 [facility] Comment on above: Performed By: #### L 503.6005 #### [facility] [address] [place], [address] MCV (RBC) [Entitic vol] 90.7 fL Normal 80-94 [facility] Comment on above: Performed By: #### L 503.6005 #### [facility] [address] [place], [address] Monocytes/100 WBC (Bld) 17.5 % High 0-10 [facility] Comment on above: Performed By: #### L 503.6005 #### [facility] [address] [place], [address] Neutrophils/100 WBC (Bld) 27.2 % Low 47-70 [facility] Comment on above: Performed By: #### L 503.6005 #### [facility] [address] [place], [address] Nucleated RBC (Bld) [#/Vol] 0 10*3/uL Normal 0-5 [facility] Comment on above: Performed By: #### L 503.6005 #### [facility] [address] [place], [address] Platelet mean volume (Bld) [Entitic vol] 9.7 fL Normal 6.2-12.0 [facility] Comment on above: Performed By: #### L 503.6005 #### [facility] [address] [place], [address] Platelets (Bld) [#/Vol] 187 10*3/uL Normal 150-450 [facility] Comment on above: Performed By: #### L 503.6005 #### [facility] [address] [place], [address] RBC (Bld) [#/Vol] 4.29 10*6/uL Low 4.6-6.2 [facility] Comment on above: Performed By: #### L 503.6005 #### [facility] [address] [place], [address] RDW SD 49.2 fl High 35.1-43.9 [facility] Comment on above: Performed By: #### L 503.6005 #### [facility] [address] [place], [address] WBC (Bld) [#/Vol] 4.3 10*3/uL Low 4.4-11.0 [facility] Comment on above: Performed By: #### L 503.6005 #### [facility] [address] [place], [address] Carbon dioxide measurementOr dered By: Husam Khan on 12-29-2024 CO2 [Moles/Vol] 30.0 mmol/L 21.0-32.0 [facility] Chloride measurementOrdered By: Husam Khan on 12-29-2024 Chloride [Moles/Vol] 103 mmol/L 98-107 [facility] Comprehensive Metabolic Prof ilon 12-29-2024 Albumin [Mass/Vol] 3.1 g/dL Low 3.2-5.0 [facility] Comment on above: Performed By: #### L 503.6005 #### [facility] [address] [place], [address] Albumin/Globulin [Mass ratio] 0.7 {ratio} Low 0.9-2.4 [facility] Comment on above: Performed By: #### L 503.6005 #### [facility] [address] [place], [address] ALK P 97 U/L Normal 45-117 [facility] Comment on above: Performed By: #### L 503.6005 #### [facility] [address] [place], [address] ALT [Catalytic activity/Vol] 11 U/L Low 16-61 [facility] Comment on above: Performed By: #### L 503.6005 #### [facility] [address] [place], [address] AST [Catalytic activity/Vol] 15 U/L Normal 15-37 [facility] Comment on above: Performed By: #### L 503.6005 #### [facility] [address] [place], [address] Bilirubin [Mass/Vol] 0.40 mg/dL Normal 0.20-1.00 [facility] Comment on above: Result Comment: For patients on eltrombopag therapy, use of Dimension Castile TBIL is not recommended. Performed By: #### L 503.6005 #### [facility] [address] [place], [address] BUN/CRE 9.6 RATIO Low 10-20 [facility] Comment on above: Performed By: #### L 503.6005 #### [facility] [address] [place], [address] CA,Total 8.7 mg/dL Normal 8.5-10.1 [facility] Comment on above: Performed By: #### L 503.6005 #### [facility] [address] [place], [address] Chloride [Moles/Vol] 103 mmol/L Normal 98-107 [facility] Comment on above: Performed By: #### L 503.6005 #### [facility] [address] [place], [address] CO2 [Moles/Vol] 30.0 mmol/L Normal 21.0-32.0 [facility] Comment on above: Performed By: #### L 503.6005 #### [facility] [address] [place], [address] Creatinine [Mass/Vol] 1.15 mg/dL Normal 0.70-1.30 [facility] Comment on above: Result Comment: The validity of the calculated GFR GFRAA in patients over 70 years has not been determined. Clinical correlation is essential. Performed By: #### L 503.6005 #### [facility] [address] [place], [address] EST GFR - AA 77 mL/min Normal >60 [facility] Comment on above: Result Comment: Afri can Guinean GFR Calc Performed By: #### L 503.6005 #### [facility] [address] [place], [address] GAP 5 Normal 5-15 [facility] Comment on above: Performed By: #### L 503.6005 #### [facility] [address] [place], [address] GFR/1.73 sq M.predicted among non-blacks MDRD (S/P/Bld) [Vol rate/Area] 64 mL/min/{1.73_m2} Normal >60 [facility] Comment on above: Result Comment: Non- GFR Calc Performed By: #### L 503.6005 #### [facility] [address] [place], [address] Globulin (S) [Mass/Vol] 4.4 g/dL High 2.2-4.2 [facility] Comment on above: Performed By: #### L 503.6005 #### [facility] [address] [place], [address] Glucose [Mass/Vol] 115 mg/dL High 74-106 [facility] Comment on above: Result Comment: Fast ing Glucose result from 100 to 125 mg/dL suggests IMPAIRED HOMEOSTASIS per A.D.A. criteria. Performed By: #### L 503.6005 #### [facility] [address] [place], [address] Potassium [Moles/Vol] 3.9 mmol/L Normal 3.5-5.1 [facility] Comment on above: Performed By: #### L [id number] #### [facility] [address] [place], [address] Sodium [Moles/Vol] 138 mmol/L Normal 136-145 [facility] Comment on above: Performed By: #### L [id number] #### [facility] [address] [place], [place], [id number] T PROT 7.5 g/dL Normal 6.4-8.2 [facility] Comment on above: Performed By: #### L [id number] #### [facility] [address] [place], [place], [id number] Urea nitrogen [Mass/Vol] 11 mg/dL Normal 7-18 [facility] Comment on above: Performed By: #### L [id number] #### [facility] [address] [place], [address] Eosinophil percentageOrdered By: Husam Khan on 12-29-2024 Eosinophils/100 WBC (Bld) 1.6 % 0-5 [facility] Erythrocyte distribution wid th ratioOrdered By: Husam Bill on 12-29-2024 Erythrocyte distribution width (RBC) [Ratio] 15.0 % High 11.6-14.6 [facility] Erythrocyte distribution wid th standard deviationOrdered By: Husam Khan on 12-29-2024 Erythrocyte distribution width (RBC) [Ratio] 49.2 fl High 35.1-43.9 [facility] Glomerular filtration rate ( GFR) estimationOrdered By: Husam Khan on 12-29-2024 GFR/1.73 sq M.predicted among non-blacks MDRD (S/P/Bld) [Vol rate/Area] 64 mL/min/{1.73_m2} >60 [facility] Comment on above: Non- GFR Calc Glucose measurementOrdered B y: Husam Khan on 12-29-2024 Glucose [Mass/Vol] 115 mg/dL High 74-106 [facility] Comment on above: Fasting Glucose resu lt from 100 to 125 mg/dL suggests IMPAIRED HOMEOSTASIS per A.D.A. criteria. Hematocrit Auto (Bld) [Volum e fraction]Ordered By: Husam Khan on 12-29-2024 Hematocrit (Bld) [Volume fraction] 38.9 % Low 40-54 [facility] Hemoglobin measurementOrdere d By: Husam Khan on 12-29-2024 Hemoglobin (Bld) [Mass/Vol] 12.3 g/dL Low 13.0-16.5 [facility] Immature granulocytes/100 WB C Auto (Bld)Ordered By: Husam Khan on 12-29-2024 Immature granulocytes/100 WBC (Bld) 0.500 % 0.0-0.9 [facility] Comment on above: IG% - Immature Granu locytes (promyelocytes, myelocytes and metamyelocytes) > 1% indicates that a LEFT SHIFT is Present. Laboratory - Chemistry and C hemistry - challengeOrdered By: Husam Khan on 12-29-2024 AST [Catalytic activity/Vol] 15 U/L 15-37 [facility] MCV (mean corpuscular volume ) determinationOrdered By: Husam Khan on 12-29-2024 MCV (RBC) [Entitic vol] 90.7 fL 80-94 [facility] Mean corpuscular hemoglobin (MCH) determinationOrdered By: Husam Khan on 12-29-2024 MCH (RBC) [Entitic mass] 28.7 pg 27.0-32.0 [facility] Mean corpuscular hemoglobin concentration (MCHC) determinationOrdered By: Husam Khan on 12-29-2024 MCHC (RBC) [Mass/Vol] 31.6 g/dL Low 32-36 [facility] Mean platelet volume determi nationOrdered By: Husam Khan on 12-29-2024 Platelet mean volume (Bld) [Entitic vol] 9.7 fL 6.2-12.0 [facility] Monocyte percentageOrdered B y: Husam Khan on 12-29-2024 Monocytes/100 WBC (Bld) 17.5 % High 0-10 [facility] Neutrophil percentageOrdered By: Husam Khan on 12-29-2024 Neutrophils/100 WBC (Bld) 27.2 % Low 47-70 [facility] Nucleated red blood cell per centageOrdered By: Husam Khan on 12-29-2024 Nucleated RBC/100 WBC (Bld) [Ratio] 0 % 0-5 [facility] Platelet countOrdered By: Kennedy Khan on 12-29-2024 Platelets (Bld) [#/Vol] 187 10*3/uL 150-450 [facility] Potassium measurementOrdered By: Husam Khan on 12-29-2024 Potassium [Moles/Vol] 3.9 mmol/L 3.5-5.1 [facility] RBC Auto (Bld) [#/Vol]Ordere d By: Husam Khan on 12-29-2024 RBC (Bld) [#/Vol] 4.29 10*6/uL Low 4.6-6.2 [facility] Serum anion gap measurementO rdered By: Husam Khan on 12-29-2024 Anion gap [Moles/Vol] 5 mmol/L 5-15 [facility] Serum globulin measurementOr dered By: Husam Khan on 12-29-2024 Globulin (S) [Mass/Vol] 4.4 g/dL High 2.2-4.2 [facility] Serum or plasma alanine mccoy otransferase (ALT) measurementOrdered By: Husam Khan on 12-29-2024 ALT [Catalytic activity/Vol] 11 U/L Low 16-61 [facility] Serum or plasma albumin donna urement (mass/volume)Ordered By: Husam Khan 12-29-2024 Albumin [Mass/Vol] 3.1 g/dL Low 3.2-5.0 [facility] Serum or plasma alkaline salvador sphatase measurementOrdered By: Husam Khan 12-29-2024 ALP [Catalytic activity/Vol] 97 U/L 45-117 [facility] Serum or plasma calcium donna urement (mass/volume)Ordered By: Husam Khan 12-29-2024 Calcium [Mass/Vol] 8.7 mg/dL 8.5-10.1 [facility] Serum or plasma creatinine m easurement (mass/volume)Ordered By: Husam Khan 12-29-2024 Creatinine [Mass/Vol] 1.15 mg/dL 0.70-1.30 [facility] Comment on above: The validity of the calculated GFR & GFRAA in patients over 70 years has not been determined. Clinical correlation is essential. Serum or plasma thyroid stim ulating hormone (TSH) measurement (units/volume)Ordered By: Husam Khan on 12-29-2024 TSH Qn 3.070 uIU/mL 0.358-3.740 [facility] Serum or plasma urea nitroge n measurement (mass/volume)Ordered By: Husam Khan on 12-29-2024 Urea nitrogen [Mass/Vol] 11 mg/dL 7-18 [facility] Sodium levelOrdered By: Husam Khan on 12-29-2024 Sodium [Moles/Vol] 138 mmol/L 136-145 [facility] Thyroid Stim Hormone (TSH)on 12-29-2024 TSH 3.070 uIU/mL Normal 0.358-3.740 [facility] Comment on above: Performed By: #### L 503.6005 #### [facility] [address] [place], [place], [address] Total proteinOrdered By: Husam Khan on 12-29-2024 Protein [Mass/Vol] 7.5 g/dL 6.4-8.2 [facility] Vitamin D,25 Hydroxyon 12-29 Vitamin D 25-OH 13.7 ng/mL Normal [facility] Comment on above: Result Comment: Inna min D 25(OH) Status Range Deficiency <20 ng/mL (50nmol/L) Insufficiency 20 - 30 ng/mL (50 - 75 nmol/L) Sufficiency 30 - 100 ng/mL (75 - 250 nmol/L) Toxicity >100 ng/mL (>250 nmol/L) Performed By: #### L [id number] #### [facility] [address] [place], [place], [address] White blood cell (WBC) count Ordered By: Husam Khan on 12-29-2024 WBC (Bld) [#/Vol] 4.3 10*3/uL Low 4.4-11.0 [facility] Basophil percentageOrdered B y: Marcy Roque on 09-02-2023 Basophil percentage 3.3 mg/dL 2.5-4.9 [facility] Chloride [Moles/Vol] 107 mmol/L 98-107 [facility] Glucose [Mass/Vol] 102 mg/dL 74-106 [facility] Comment on above: Fasting Glucose resu lt from 100 to 125 mg/dL suggests IMPAIRED HOMEOSTASIS per A.D.A. criteria. Potassium [Moles/Vol] 4.2 mmol/L 3.5-5.1 [facility] Sodium [Moles/Vol] 139 mmol/L 136-145 [facility] Laboratory - Chemistry and C hemistry - challengeOrdered By: Marcy Roque on 09-02-2023 CO2 [Moles/Vol] 28.0 mmol/L 21.0-32.0 [facility] Urea nitrogen/Creatinine [Mass ratio] 13.6 mg/mg 10-20 [facility] No Panel InformationOrdered By: Marcy Roque on 09-02-2023 Estimated GFR (MDRD) Amer 66 mL/min >60 [facility] Comment on above: GFR Calc Estimated GFR (MDRD) Non-Af Amer 55 mL/min >60 [facility] Comment on above: Non- GFR Calc Serum or plasma albumin donna urement (mass/volume)Ordered By: Marcy Roque on 09-02-2023 Albumin [Mass/Vol] 3.5 g/dL 3.2-5.0 [facility] Serum or plasma calcium donna urement (mass/volume)Ordered By: Marcy Roque on 09-02-2023 Calcium [Mass/Vol] 8.9 mg/dL 8.5-10.1 [facility] Serum or plasma creatinine m easurement (mass/volume)Ordered By: Marcy Roque on 09-02-2023 Creatinine [Mass/Vol] 1.32 mg/dL 0.70-1.30 [facility] Comment on above: The validity of the calculated GFR & GFRAA in patients over 70 years has not been determined. Clinical correlation is essential. Serum or plasma urea nitroge n measurement (mass/volume)Ordered By: Marcy Roque on 09-02-2023 Urea nitrogen [Mass/Vol] 18 mg/dL 7-18 [facility] Urine creatinine measurement (mass/volume)Ordered By: Marcy Roque on 09-02-2023 Creatinine (U) [Mass/Vol] 240.00 mg/dL NO RANGE EST. [facility] Urine protein measurement (m ass/volume)Ordered By: Marcy Roque on 09-02-2023 Protein (U) [Mass/Vol] 49.5 mg/dL 0.0-11.8 [facility] Urine protein/creatinine mas s ratioOrdered By: Marcy Roque on 09-02-2023 Protein/Creatinine (U) [Mass ratio] 206 mg/g CRE 0-200 [facility] Absolute lymphocyte countOrd ered By: Geoffrey Garza on 07-07-2023 Lymphocytes Auto (Unsp spec) [#/Vol] 2.20 10*3/uL 0.83-4.51 [facility] Basophil percentageOrdered B y: Geoffrey Garza on 07-07-2023 Basophils/100 WBC (Bld) 0.2 % 0-1 [facility] Bilirubin [Mass/Vol] 0.50 mg/dL 0.20-1.00 [facility] Comment on above: For patients on eltr ombopag therapy, use of Dimension Castile TBIL is not recommended. Chloride [Moles/Vol] 106 mmol/L 98-107 [facility] Eosinophils/100 WBC (Bld) 1.6 % 0-5 [facility] Glucose [Mass/Vol] 112 mg/dL 74-106 [facility] Comment on above: Fasting Glucose resu lt from 100 to 125 mg/dL suggests IMPAIRED HOMEOSTASIS per A.D.A. criteria. Neutrophils (Bld) [#/Vol] 1.4 10*3/uL 2.0-7.7 [facility] Neutrophils/100 WBC (Bld) 32.0 % 47-70 [facility] Potassium [Moles/Vol] 3.3 mmol/L 3.5-5.1 [facility] Protein [Mass/Vol] 6.8 g/dL 6.4-8.2 [facility] Sodium [Moles/Vol] 139 mmol/L 136-145 [facility] WBC (Bld) [#/Vol] 4.3 10*3/uL 4.4-11.0 [facility] Blood erythrocytes count (nu mber/volume)Ordered By: Geoffrey Garza on 07-07-2023 RBC (Bld) [#/Vol] 4.12 10*6/uL 4.6-6.2 [facility] Blood hemoglobin measurement (mass/volume)Ordered By: Geoffrey Garza on 07-07-2023 Hemoglobin (Bld) [Mass/Vol] 12.6 g/dL 13.0-16.5 [facility] Blood lymphocytes/100 leukoc ytesOrdered By: Geoffrey Garza on 07-07-2023 Lymphocytes/100 WBC (Bld) 51.5 % 19-41 [facility] Blood monocytes/100 leukocyt esOrdered By: Geoffrey Garza on 07-07-2023 Monocytes/100 WBC (Bld) 14.5 % 0-10 [facility] Blood platelet mean volumeOr dered By: Geoffrey Garza on 07-07-2023 Platelet mean volume (Bld) [Entitic vol] 9.8 fL 6.2-12.0 [facility] Determination of erythrocyte mean corpuscular volume (MCV)Ordered By: Geoffrey Garza on 07-07-2023 MCV (RBC) [Entitic vol] 95.4 fL 80-94 [facility] Hematocrit Auto (Bld) [Volum e fraction]Or[facility]: [facility] Hematocrit (Bld) [Volume fraction] 39.3 % 40-54 [facility] Iron measurement (mass/mass) Ordered By: Geoffrey Garza on 07-07-2023 Iron (Unsp spec) [Mass/Mass] 64 ug/dL 65-175 [facility] Laboratory - Chemistry and C hemistry - challengeOrdered By: [facility] on 07-07-2023 ALP [Catalytic activity/Vol] 94 U/L 45-117 [facility] ALT [Catalytic activity/Vol] 13 U/L 16-61 [facility] CO2 [Moles/Vol] 29.0 mmol/L 21.0-32.0 [facility] Globulin (S) [Mass/Vol] 3.7 g/dL 2.2-4.2 [facility] Urea nitrogen/Creatinine [Mass ratio] 9.8 mg/mg 10-20 [facility] - Hematology and Cell countsOrdered By: Geoffrey Garza on 07-07-2023 Erythrocyte distribution width (RBC) [Entitic vol] 46.0 fL 35.1-43.9 [facility] Erythrocyte distribution width (RBC) [Ratio] 13.5 % 11.6-14.6 [facility] Immature granulocytes/100 WBC (Bld) 0.200 % 0.0-0.9 [facility] Comment on above: IG% - Immature Granu locytes (promyelocytes, myelocytes and metamyelocytes) > 1% indicates that a LEFT SHIFT is Present. MCH (RBC) [Entitic mass] 30.6 pg 27.0-32.0 [facility] Nucleated RBC/100 WBC (Bld) [Ratio] 0 % 0-5 [facility] MCHC Auto (RBC) [Mass/Vol]Or dered By: Geoffrey Garza on 07-07-2023 MCHC (RBC) [Mass/Vol] 32.1 g/dL 32-36 [facility] No Panel InformationOrdered By: Geoffrey Garza on 07-07-2023 Estimated GFR (MDRD) Amer 73 mL/min >60 [facility] Comment on above: GFR Calc Estimated GFR (MDRD) Non-Af Amer 60 mL/min >60 [facility] Comment on above: Non- GFR Calc Total Iron Binding Capacity 247 ug/dL 250-450 [facility] Platelets bldOrdered By: Polo Garza on 07-07-2023 Platelets (Bld) [#/Vol] 168 10*3/uL 150-450 [facility] Serum or plasma albumin donna urement (mass/volume)Ordered By: Geoffrey Garza on 07-07-2023 Albumin [Mass/Vol] 3.1 g/dL 3.2-5.0 [facility] Serum or plasma albumin/glob ulin mass ratioOrdered By: Geoffrey Garza on 07-07-2023 Albumin/Globulin [Mass ratio] 0.8 {ratio} 0.9-2.4 [facility] Serum or plasma calcium donna urement (mass/volume)Ordered By: Geoffrey Garza on 07-07-2023 Calcium [Mass/Vol] 8.5 mg/dL 8.5-10.1 [facility] Serum or plasma creatinine m easurement (mass/volume)Ordered By: Geoffrey Garza on 07-07-2023 Creatinine [Mass/Vol] 1.22 mg/dL 0.70-1.30 [facility] Comment on above: The validity of the calculated GFR & GFRAA in patients over 70 years has not been determined. Clinical correlation is essential. Serum or plasma ferritin yosef surement (mass/volume)Ordered By: Geoffrey Garza on 07-07-2023 Ferritin [Mass/Vol] 51 ng/mL 26-388 [facility] Serum or plasma iron saturat ion measurement (mass fraction)Ordered By: Geoffrey Garza on 07-07-2023 Iron saturation [Mass fraction] 25.9 % 15.0-55.0 [facility] Serum or plasma urea nitroge n measurement (mass/volume)Ordered By: [facility] on 07-07-2023 Urea nitrogen [Mass/Vol] 12 mg/dL 7-18 [facility] Thin prep Papanicolaou smear with manual screeningOrdered By: [facility] Greg on 07-07-2023 Thin prep Papanicolaou smear with manual screening 16 U/L 15-37 [facility] Thin prep Papanicolaou smear with manual screening 4 5-15 [facility] Absolute lymphocyte countOrd ered By: Husam Khan on 06-25-2023 Lymphocytes Auto (Unsp spec) [#/Vol] 2.16 10*3/uL 0.83-4.51 [facility] Basophil percentageOrdered B y: Husam Khan on 06-25-2023 Basophils/100 WBC (Bld) 0.4 % 0-1 [facility] Bilirubin [Mass/Vol] 0.40 mg/dL 0.20-1.00 [facility] Comment on above: For patients on eltr ombopag therapy, use of Dimension [place]ile TBIL is not recommended. Chloride [Moles/Vol] 108 mmol/L 98-107 [facility] Eosinophils/100 WBC (Bld) 1.5 % 0-5 [facility] Glucose [Mass/Vol] 103 mg/dL 74-106 [facility] Comment on above: Fasting Glucose resu lt from 100 to 125 mg/dL suggests IMPAIRED HOMEOSTASIS per A.D.A. criteria. Neutrophils (Bld) [#/Vol] 1.9 10*3/uL 2.0-7.7 [facility] Neutrophils/100 WBC (Bld) 39.6 % 47-70 [facility] Potassium [Moles/Vol] 3.7 mmol/L 3.5-5.1 [facility] Protein [Mass/Vol] 7.4 g/dL 6.4-8.2 [facility] Sodium [Moles/Vol] 140 mmol/L 136-145 [facility] WBC (Bld) [#/Vol] 4.7 10*3/uL 4.4-11.0 [facility] Blood erythrocytes count (nu mber/volume)Ordered By: Husam Khan on 06-25-2023 RBC (Bld) [#/Vol] 4.04 10*6/uL 4.6-6.2 [facility] Blood hemoglobin measurement (mass/volume)Ordered By: Husam Khan on 06-25-2023 Hemoglobin (Bld) [Mass/Vol] 13.0 g/dL 13.0-16.5 [facility] Blood lymphocytes/100 leukoc ytesOrdered By: Husam Khan on 06-25-2023 Lymphocytes/100 WBC (Bld) 45.6 % 19-41 [facility] Blood monocytes/100 leukocyt esOrdered By: Husam Khan on 06-25-2023 Monocytes/100 WBC (Bld) 12.7 % 0-10 [facility] Blood platelet mean volumeOr dered By: Husam Khan on 06-25-2023 Platelet mean volume (Bld) [Entitic vol] 10.0 fL 6.2-12.0 [facility] Determination of erythrocyte mean corpuscular volume (MCV)Ordered By: Husam Khan on 06-25-2023 MCV (RBC) [Entitic vol] 94.3 fL 80-94 [facility] Hematocrit Auto (Bld) [Volum e fraction]Ordered By: Husam Khan on 06-25-2023 Hematocrit (Bld) [Volume fraction] 38.1 % 40-54 [facility] Laboratory - Chemistry and C hemistry - challengeOrdered By: Husam Khan on 06-25-2023 ALP [Catalytic activity/Vol] 94 U/L 45-117 [facility] ALT [Catalytic activity/Vol] 15 U/L 16-61 [facility] CO2 [Moles/Vol] 24.0 mmol/L 21.0-32.0 [facility] Globulin (S) [Mass/Vol] 4.2 g/dL 2.2-4.2 [facility] Urea nitrogen/Creatinine [Mass ratio] 12.6 mg/mg 10-20 [facility] Laboratory - Hematology and Cell countsOrdered By: Husam Khan on 06-25-2023 Erythrocyte distribution width (RBC) [Entitic vol] 46.2 fL 35.1-43.9 [facility] Erythrocyte distribution width (RBC) [Ratio] 13.4 % 11.6-14.6 [facility] Immature granulocytes/100 WBC (Bld) 0.200 % 0.0-0.9 [facility] Comment on above: IG% - Immature Granu locytes (promyelocytes, myelocytes and metamyelocytes) > 1% indicates that a LEFT SHIFT is Present. MCH (RBC) [Entitic mass] 32.2 pg 27.0-32.0 [facility] Nucleated RBC/100 WBC (Bld) [Ratio] 0 % 0-5 [facility] MCHC Auto (RBC) [Mass/Vol]Or dered By: Husam Khan on 06-25-2023 MCHC (RBC) [Mass/Vol] 34.1 g/dL 32-36 [facility] No Panel InformationOrdered By: Husam Khan on 06-25-2023 Estimated GFR (MDRD) Amer 69 mL/min >60 [facility] Comment on above: GFR Calc Estimated GFR (MDRD) Non-Af Amer 57 mL/min >60 [facility] Comment on above: Non- GFR Calc Thyroid Stimulating Hormone (TSH) 2.81 uIU/mL 0.358-3.74 [facility] Vitamin D 25-Hydroxy 13.2 ng/mL [facility] Comment on above: Vitamin D 25(OH) Sta tus Range Deficiency <20 ng/mL (50nmol/L) Insufficiency 20 - 30 ng/mL (50 - 75 nmol/L) Sufficiency 30 - 100 ng/mL (75 - 250 nmol/L) Toxicity >100 ng/mL (>250 nmol/L) Platelets bldOrdered By: Husam Khan on 06-25-2023 Platelets (Bld) [#/Vol] 187 10*3/uL 150-450 [facility] Serum or plasma albumin donna urement (mass/volume)Ordered By: Husam Khan on 06-25-2023 Albumin [Mass/Vol] 3.2 g/dL 3.2-5.0 [facility] Serum or plasma albumin/glob ulin mass ratioOrdered By: Husam Khan on 06-25-2023 Albumin/Globulin [Mass ratio] 0.8 {ratio} 0.9-2.4 [facility] Serum or plasma calcium donna urement (mass/volume)Ordered By: Husam Khan on 06-25-2023 Calcium [Mass/Vol] 8.2 mg/dL 8.5-10.1 [facility] Serum or plasma creatinine m easurement (mass/volume)Ordered By: Husam Khan on 06-25-2023 Creatinine [Mass/Vol] 1.27 mg/dL 0.70-1.30 [facility] Comment on above: The validity of the calculated GFR & GFRAA in patients over 70 years has not been determined. Clinical correlation is essential. Serum or plasma urea nitroge n measurement (mass/volume)Ordered By: Husam Khan on 06-25-2023 Urea nitrogen [Mass/Vol] 16 mg/dL 7-18 [facility] Thin prep Papanicolaou smear with manual screeningOrdered By: Husam Khan on 06-25-2023 Thin prep Papanicolaou smear with manual screening 19 U/L 15-37 [facility] Thin prep Papanicolaou smear with manual screening 8 5-15 [facility] Culture, urineOrdered By: Dr Sara Roque on 02-12-2023 Bacteria identified Cx Nom (U) Mixed Gram Pos & Gram Neg Org [facility] 24 hour urine alpha 2 globul in/total protein ratio by electrophoresis (mass fraction)Ordered By: Dr. Roque on 02-10-2023 Alpha 2 globulin Elph (24H U) [Mass fraction] 7.5 % . [facility] 24 hour urine beta globulin/ total protein ratio by electrophoresis (mass fraction)Ordered By: Dr. Roque on 02-10-2023 Beta globulin Elph (24H U) [Mass fraction] 13.1 % . [facility] 24 hour urine gamma globulin /total protein ratio by electrophoresis (mass fraction)Ordered By: Dr. Roque on 02-10-2023 Gamma globulin Elph (24H U) [Mass fraction] 13.9 % . [facility] Amorphous sediment detection in urine sediment by light microscopyOrdered By: Dr. Roque on 02-10-2023 Amorphous sediment LM Ql (Urine sed) 2+ [facility] Basophil percentageOrdered B y: Dr. Roque on 02-10-2023 Basophil percentage 0 SEEN /hpf 0-5 [facility] Bilirubin Test strip Ql (U)O rdered By: Dr. Roque on 02-10-2023 Bilirubin Ql (U) Negative Negative [facility] Ketones Test strip Ql (U)Ord ered By: Dr. Roque on 02-10-2023 Ketones Ql (U) Negative Negative [facility] Mucus LM Ql (Urine sed)Order ed By: Dr. Roque on 02-10-2023 Mucus Ql (Urine sed) 0 SEEN /hpf [facility] Nitrite Test strip Ql (U)Ord ered By: Dr. Roque on 02-10-2023 Nitrite Ql (U) Negative Negative [facility] No Panel InformationOrdered By: Dr. Roque on 02-10-2023 Urine Immunofixation PEP Note Comment . [facility] Comment on above: Protein electrophore sis scan will follow via computer,mail, or disease management nurse delivery.Performed at: [employer] [id number] Director: Alcides Alicea PhD, Phone: [phone] Protein Test strip Ql (U)Ord ered By: Dr. Roque on 02-10-2023 Protein Ql (U) 30 mg/dl Negative [facility] Squamous epithelial cells de tection in urine sediment by light microscopyOrdered By: Dr. Roque on 02-10-2023 Epithelial cells.squamous LM Ql (Urine sed) 0 SEEN /hpf 0-5 [facility] Urine albumin/total protein mass ratio by electrophoresisOrdered By: Dr. Roque on 02-10-2023 Albumin Elph (U) [Mass fraction] 61.3 % . [facility] Urine alpha 1 globulin/total protein ratio by electrophoresis (mass fraction)Ordered By: Dr. Roque on 02-10-2023 Alpha 1 globulin Elph (U) [Mass fraction] 4.1 % . [facility] Urine blood detectionOrdered By: Dr. Roque on 02-10-2023 RBC Ql (U) Negative Negative [facility] RBC Ql (U) 0 SEEN /hpf 0-5 [facility] Urine clarityOrdered By: Dr. Roque on 02-10-2023 Clarity (U) Clear Clear [facility] Urine color determinationOrd ered By: Dr. Roque on 02-10-2023 Color (U) Yellow Yellow [facility] Urine creatinine measurement (mass/volume)Ordered By: Dr. Roque on 02-10-2023 Creatinine (U) [Mass/Vol] 184.00 mg/dL NO RANGE EST. [facility] Urine glucose detectionOrder ed By: Dr. Roque on 02-10-2023 Glucose Ql (U) Normal mg/dl Normal [facility] Urine leukocyte esterase det ection by dipstickOrdered By: Dr. Roque on 02-10-2023 Leukocyte esterase Test strip Ql (U) Negative Negative [facility] Urine monoclonal protein/tot al protein mass ratio by electrophoresisOrdered By: Dr. Roque on 02-10-2023 Protein.monoclonal Elph (U) [Mass fraction] See comment [facility] Comment on above: NOT OBSERVED Urine pHOrdered By: Dr. oRque on 02-10-2023 pH (U) 5.0 [pH] 5.0 - 8.0 [facility] Urine protein measurement (m ass/volume)Ordered By: Dr. Roque on 02-10-2023 Protein (U) [Mass/Vol] 57.7 mg/dL 0.0-11.8 [facility] Protein (U) [Mass/Vol] 54.4 mg/dL Not Estab. [facility] Urine protein/creatinine mas s ratioOrdered By: Dr. Roque on 02-10-2023 Protein/Creatinine (U) [Mass ratio] 314 mg/g CRE 0-200 [facility] Urine sediment bacteria coun t by microscopy (number/high power field)Ordered By: Dr. Roque on 02-10-2023 Bacteria LM.HPF (Urine sed) [#/Area] 1 /[HPF] None Seen [facility] Urine specific gravity measu rementOrdered By: Dr. Roque on 02-10-2023 Specific gravity (U) [Rel density] 1.015 1.002-1.030 [facility] Urobilinogen Auto test strip Ql (U)Ordered By: Dr. Roque on 02-10-2023 Urobilinogen Ql (U) Normal mg/dl Normal [facility] Absolute lymphocyte countOrd ered By: Dr. Khan on 12-25-2022 Lymphocytes Auto (Unsp spec) [#/Vol] 2.24 10*3/uL 0.83-4.51 [facility] Basophil percentageOrdered B y: Dr. Khan on 12-25-2022 Basophils/100 WBC (Bld) 0.2 % 0-1 [facility] Bilirubin [Mass/Vol] 0.40 mg/dL 0.20-1.00 [facility] Comment on above: For patients on eltr ombopag therapy, use of Dimension Castile TBIL is not recommended. Chloride [Moles/Vol] 103 mmol/L 98-107 [facility] Eosinophils/100 WBC (Bld) 1.3 % 0-5 [facility] Glucose [Mass/Vol] 101 mg/dL 74-106 [facility] Comment on above: Fasting Glucose resu lt from 100 to 125 mg/dL suggests IMPAIRED HOMEOSTASIS per A.D.A. criteria. Neutrophils (Bld) [#/Vol] 1.6 10*3/uL 2.0-7.7 [facility] Neutrophils/100 WBC (Bld) 35.8 % 47-70 [facility] Potassium [Moles/Vol] 3.8 mmol/L 3.5-5.1 [facility] Protein [Mass/Vol] 7.5 g/dL 6.4-8.2 [facility] Sodium [Moles/Vol] 138 mmol/L 136-145 [facility] WBC (Bld) [#/Vol] 4.5 10*3/uL 4.4-11.0 [facility] Blood erythrocytes count (nu mber/volume)Ordered By: Dr. Khan on 12-25-2022 RBC (Bld) [#/Vol] 4.43 10*6/uL 4.6-6.2 [facility] Blood hemoglobin measurement (mass/volume)Ordered By: Dr. Khan on 12-25-2022 Hemoglobin (Bld) [Mass/Vol] 13.4 g/dL 13.0-16.5 [facility] Blood lymphocytes/100 leukoc ytesOrdered By: Dr. Khan on 12-25-2022 Lymphocytes/100 WBC (Bld) 50.2 % 19-41 [facility] Blood monocytes/100 leukocyt esOrdered By: Dr. Khan on 12-25-2022 Monocytes/100 WBC (Bld) 12.3 % 0-10 [facility] Blood platelet mean volumeOr dered By: Dr. Khan on 12-25-2022 Platelet mean volume (Bld) [Entitic vol] 9.6 fL 6.2-12.0 [facility] Determination of erythrocyte mean corpuscular volume (MCV)Ordered By: Dr. Khan on 12-25-2022 MCV (RBC) [Entitic vol] 93.9 fL 80-94 [facility] Hematocrit Auto (Bld) [Volum e fraction]Ordered By: Dr. Khan on 12-25-2022 Hematocrit (Bld) [Volume fraction] 41.6 % 40-54 [facility] Laboratory - Chemistry and C hemistry - challengeOrdered By: Dr. Khan on 12-25-2022 ALP [Catalytic activity/Vol] 90 U/L 45-117 [facility] ALT [Catalytic activity/Vol] 20 U/L 16-61 [facility] CO2 [Moles/Vol] 26.0 mmol/L 21.0-32.0 [facility] Globulin (S) [Mass/Vol] 4.1 g/dL 2.2-4.2 [facility] Urea nitrogen/Creatinine [Mass ratio] 9.9 mg/mg 10-20 [facility] Laboratory - Hematology and Cell countsOrdered By: Dr. Khan on 12-25-2022 Erythrocyte distribution width (RBC) [Entitic vol] 45.6 fL 35.1-43.9 [facility] Erythrocyte distribution width (RBC) [Ratio] 13.2 % 11.6-14.6 [facility] Immature granulocytes/100 WBC (Bld) 0.200 % 0.0-0.9 [facility] Comment on above: IG% - Immature Granu locytes (promyelocytes, myelocytes and metamyelocytes) > 1% indicates that a LEFT SHIFT is Present. MCH (RBC) [Entitic mass] 30.2 pg 27.0-32.0 [facility] Nucleated RBC/100 WBC (Bld) [Ratio] 0 % 0-5 [facility] MCHC Auto (RBC) [Mass/Vol]Or dered By: Dr. Khan on 12-25-2022 MCHC (RBC) [Mass/Vol] 32.2 g/dL 32-36 [facility] No Panel InformationOrdered By: Dr. Khan on 12-25-2022 Estimated GFR (MDRD) Amer 67 mL/min >60 [facility] Comment on above: GFR Calc Estimated GFR (MDRD) Non-Af Amer 55 mL/min >60 [facility] Comment on above: Non- GFR Calc Thyroid Stimulating Hormone (TSH) 1.95 uIU/mL 0.358-3.74 [facility] Vitamin D 25-Hydroxy 14.6 ng/mL [facility] Comment on above: Vitamin D 25(OH) Sta tus Range Deficiency <20 ng/mL (50nmol/L) Insufficiency 20 - 30 ng/mL (50 - 75 nmol/L) Sufficiency 30 - 100 ng/mL (75 - 250 nmol/L) Toxicity >100 ng/mL (>250 nmol/L) Platelets bldOrdered By: Dr. Khan on 12-25-2022 Platelets (Bld) [#/Vol] 198 10*3/uL 150-450 [facility] Serum or plasma albumin donna urement (mass/volume)Ordered By: Dr. Khan on 12-25-2022 Albumin [Mass/Vol] 3.4 g/dL 3.2-5.0 [facility] Serum or plasma albumin/glob ulin mass ratioOrdered By: Dr. Khan on 12-25-2022 Albumin/Globulin [Mass ratio] 0.8 {ratio} 0.9-2.4 [facility] Serum or plasma calcium donna urement (mass/volume)Ordered By: Dr. Khan on 12-25-2022 Calcium [Mass/Vol] 8.8 mg/dL 8.5-10.1 [facility] Serum or plasma creatinine m easurement (mass/volume)Ordered By: Dr. Khan on 12-25-2022 Creatinine [Mass/Vol] 1.31 mg/dL 0.70-1.30 [facility] Comment on above: The validity of the calculated GFR & GFRAA in patients over 70 years has not been determined. Clinical correlation is essential. Serum or plasma urea nitroge n measurement (mass/volume)Ordered By: Dr. Khan on 12-25-2022 Urea nitrogen [Mass/Vol] 13 mg/dL 7-18 [facility] Thin prep Papanicolaou smear with manual screeningOrdered By: Dr. Khan on 12-25-2022 Thin prep Papanicolaou smear with manual screening 17 U/L 15-37 [facility] Thin prep Papanicolaou smear with manual screening 9 5-15 [facility] Laboratory - Microbiology an d Antimicrobial susceptibilityOrdered By: Dr. Khan on 10-20-2022 SARS-CoV-2 (COVID-19) RNA TRICIA+probe Ql (Unsp spec) Not detected Not Detect [facility] Comment on above: Normal Reference Ran ge: Not DetectedMethod:(RT-PCR) real-time reverse transcriptase PCRLuminex [employer] Instrument*The Food and Drug Administration (FDA) has issued an Emergency Use Authorization (EAU) for the [employer] SARS-CoV-2 Assay for the rapid detection of [...] 10-20-2022 Influenza Types A,B Direct FA (RYLAN) [facility] RSV Ag EIAOrdered By: Dr. Kaleigh spencer on 10-20-2022 RSV Ag Immune stain Ql (Tiss) [facility] Basophil percentageon 2021 Basophil percentage 2.9 mg/dL 2.5-4.9 [facility] Work Phone: Chloride [Moles/Vol] 103 mmol/L 98-107 [facility] Work Phone: Glucose [Mass/Vol] 127 mg/dL 74-106 [facility] Work Phone: Comment on above: Fasting Glucose resu lt greater than or equal to 126 mg/dL suggests DIABETES MELLITUS per A.D.A. criteria. Potassium [Moles/Vol] 3.8 mmol/L 3.5-5.1 [facility] Work Phone: Sodium [Moles/Vol] 140 mmol/L 136-145 [facility] Work Phone: WBC (Bld) [#/Vol] 4.6 10*3/uL 4.4-11.0 [facility] Work Phone: Blood erythrocytes count (nu mber/volume)on 08-12-2022 RBC (Bld) [#/Vol] 4.40 10*6/uL 4.6-6.2 [facility] Work Phone: Blood hemoglobin measurement (mass/volume)on 08-12-2022 Hemoglobin (Bld) [Mass/Vol] 13.6 g/dL 13.0-16.5 [facility] Work Phone: Blood platelet mean volumeon 08-12-2022 Platelet mean volume (Bld) [Entitic vol] 9.6 fL 6.2-12.0 [facility] Work Phone: Determination of erythrocyte mean corpuscular volume (MCV)on 08-12-2022 MCV (RBC) [Entitic vol] 95.0 fL 80-94 [facility] Work Phone: Hematocrit Auto (Bld) [Volum e fraction]on 08-12-2022 Hematocrit (Bld) [Volume fraction] 41.8 % 40-54 [facility] Work Phone: Laboratory - Chemistry and C hemistry - challengeon 08-12-2022 CO2 [Moles/Vol] 29.0 mmol/L 21.0-32.0 [facility] Work Phone: Urea nitrogen/Creatinine [Mass ratio] 7.7 mg/mg 10- [facility] Work Phone: Laboratory - Hematology and Cell countson 08-12-2022 Erythrocyte distribution width (RBC) [Entitic vol] 46.3 fL 35.1-43.9 [facility] Work Phone: Erythrocyte distribution width (RBC) [Ratio] 13.2 % 11.6-14.6 [facility] Work Phone: MCH (RBC) [Entitic mass] 30.9 pg 27.0-32.0 [facility] Work Phone: MCHC Auto (RBC) [Mass/Vol]on 08-12-2022 MCHC (RBC) [Mass/Vol] 32.5 g/dL 32-36 [facility] Work Phone: No Panel Informationon 08-12 Estimated GFR (MDRD) Amer 68 mL/min >60 [facility] Work Phone: Comment on above: GFR Calc Estimated GFR (MDRD) Non-Af Amer 56 mL/min >60 [facility] Work Phone: Comment on above: Non- GFR Calc Platelets bldon 08-12-2022 Platelets (Bld) [#/Vol] 167 10*3/uL 150-450 [facility] Work Phone: Serum or plasma albumin donna urement (mass/volume)on 08-12-2022 Albumin [Mass/Vol] 3.3 g/dL 3.2-5.0 [facility] Work Phone: Serum or plasma calcium donna urement (mass/volume)on 08-12-2022 Calcium [Mass/Vol] 8.9 mg/dL 8.5-10.1 [facility] Work Phone: Serum or plasma creatinine m easurement (mass/volume)on 08-12-2022 Creatinine [Mass/Vol] 1.30 mg/dL 0.70-1.30 [facility] Work Phone: Comment on above: The validity of the calculated GFR & GFRAA in patients over 70 years has not been determined. Clinical correlation is essential. Serum or plasma urea nitroge n measurement (mass/volume)on 08-12-2022 Urea nitrogen [Mass/Vol] 10 mg/dL 7-18 [facility] Work Phone: Absolute lymphocyte counton 07-08-2022 Lymphocytes Auto (Unsp spec) [#/Vol] 1.83 10*3/uL 0.83-4.51 [facility] Work Phone: Albumin Elph [Mass/Vol]on Albumin [Mass/Vol] 3.4 g/dL 2.9-4.4 [facility] Work Phone: Basophil percentageon 2021 Basophils/100 WBC (Bld) 0.2 % 0-1 [facility] Work Phone: Bilirubin [Mass/Vol] 0.40 mg/dL 0.20-1.00 [facility] Work Phone: Comment on above: For patients on eltr ombopag therapy, use of Dimension [place]ile TBIL is not recommended. Chloride [Moles/Vol] 105 mmol/L 98-107 [facility] Work Phone: Eosinophils/100 WBC (Bld) 4.0 % 0-5 [facility] Work Phone: Glucose [Mass/Vol] 123 mg/dL 74-106 [facility] Work Phone: Comment on above: Fasting Glucose resu lt from 100 to 125 mg/dL suggests IMPAIRED HOMEOSTASIS per A.D.A. criteria. Neutrophils (Bld) [#/Vol] 1.5 10*3/uL 2.0-7.7 [facility] Work Phone: Neutrophils/100 WBC (Bld) 35.0 % 47-70 [facility] Work Phone: Potassium [Moles/Vol] 3.7 mmol/L 3.5-5.1 [facility] Work Phone: Protein [Mass/Vol] 7.2 g/dL 6.4-8.2 [facility] Work Phone: Sodium [Moles/Vol] 140 mmol/L 136-145 [facility] Work Phone: WBC (Bld) [#/Vol] 4.2 10*3/uL 4.4-11.0 [facility] Work Phone: Blood erythrocytes count (nu mber/volume)on 07-08-2022 RBC (Bld) [#/Vol] 4.26 10*6/uL 4.6-6.2 [facility] Work Phone: Blood hemoglobin measurement (mass/volume)on 07-08-2022 Hemoglobin (Bld) [Mass/Vol] 12.8 g/dL 13.0-16.5 [facility] Work Phone: [phone] Blood lymphocytes/100 leukoc yteson 07-08-2022 Lymphocytes/100 WBC (Bld) 43.6 % 19-41 [facility] Work Phone: Blood monocytes/100 leukocyt eson 07-08-2022 Monocytes/100 WBC (Bld) 16.7 % 0-10 [facility] Work Phone: Blood platelet mean volumeon 07-08-2022 Platelet mean volume (Bld) [Entitic vol] 9.2 fL 6.2-12.0 [facility] Work Phone: Determination of erythrocyte mean corpuscular volume (MCV)on 07-08-2022 MCV (RBC) [Entitic vol] 92.5 fL 80-94 [facility] Work Phone: Hematocrit Auto (Bld) [Volum e fraction]on 07-08-2022 Hematocrit (Bld) [Volume fraction] 39.4 % 40-54 [facility] Work Phone: Interpretation of serum or p lasma protein pattern by immunofixation (narrative resulton 07-08-2022 Protein Fractions Immunofixation Carlin [Interp] See comment [facility] Work Phone: Comment on above: MONOCLONAL IGG LAMBD A = 0.2 G/DLDUE TO THE SMALL QUANTITY OF MONOCLONAL IGM KAPPA, UNABLE TOQUANTITATE THE M-SPIKE Iron measurement (mass/mass) on 07-08-2022 Iron (Unsp spec) [Mass/Mass] 51 ug/dL 65-175 [facility] Work Phone: Laboratory - Chemistry and C hemistry - challengeon 07-08-2022 ALP [Catalytic activity/Vol] 95 U/L 45-117 [facility] Work Phone: ALT [Catalytic activity/Vol] 15 U/L 16-61 [facility] Work Phone: CO2 [Moles/Vol] 29.0 mmol/L 21.0-32.0 [facility] Work Phone: Cobalamin (Vitamin B12) [Mass/Vol] 1123 pg/mL 211-911 [facility] Work Phone: Urea nitrogen/Creatinine [Mass ratio] 10.4 mg/mg 10-20 [facility] Work Phone: [phone] Laboratory - Hematology and Cell countson 07-08-2022 Erythrocyte distribution width (RBC) [Entitic vol] 44.1 fL 35.1-43.9 [facility] Work Phone: Erythrocyte distribution width (RBC) [Ratio] 13.1 % 11.6-14.6 [facility] Work Phone: Immature granulocytes/100 WBC (Bld) 0.500 % 0.0-0.9 [facility] Work Phone: Comment on above: IG% - Immature Granu locytes (promyelocytes, myelocytes and metamyelocytes) > 1% indicates that a LEFT SHIFT is Present. MCH (RBC) [Entitic mass] 30.0 pg 27.0-32.0 [facility] Work Phone: Nucleated RBC/100 WBC (Bld) [Ratio] 0 % 0-5 [facility] Work Phone: MCHC Auto (RBC) [Mass/Vol]on 07-08-2022 MCHC (RBC) [Mass/Vol] 32.5 g/dL 32-36 [facility] Work Phone: No Panel Informationon 07-08 Addendum Document Comment . [facility] Work Phone: Comment on above: Protein electrophore sis scan will follow via computer,mail, or disease management nurse delivery.Performed at: [address] [id number] Director: Alcides Alicea PhD, Phone: [phone] Estimated GFR (MDRD) Amer 65 mL/min >60 [facility] Work Phone: Comment on above: GFR Calc Estimated GFR (MDRD) Non-Af Amer 54 mL/min >60 [facility] Work Phone: Comment on above: Non- GFR Calc Total Iron Binding Capacity 250 ug/dL 250-450 [facility] Work Phone: Platelets bldon 07-08-2022 Platelets (Bld) [#/Vol] 163 10*3/uL 150-450 [facility] Work Phone: Serum [id number] measu rement by electrophoresison 07-08-2022 Alpha 1 globulin Elph [Mass/Vol] 0.2 g/dL 0.0-0.4 [facility] Work Phone: Alpha 1 globulin Elph [Mass/Vol] 0.9 g/dL 0.4-1.0 [facility] Work Phone: Serum globulin measurement ( mass/volume)on 07-08-2022 Globulin (S) [Mass/Vol] 3.3 g/dL 2.2-3.9 [facility] Work Phone: Serum or plasma IgA measurem ent (mass/volume)on 07-08-2022 IgA [Mass/Vol] 464 mg/dL 61-437 [facility] Work Phone: Serum or plasma IgG measurem ent (mass/volume)on 07-08-2022 IgG [Mass/Vol] 1344 mg/dL [phone] [facility] Work Phone: Serum or plasma IgM measurem ent (mass/volume)on 07-08-2022 IgM [Mass/Vol] 148 mg/dL 15-143 [facility] Work Phone: Serum or plasma albumin donna urement (mass/volume)on 07-08-2022 Albumin [Mass/Vol] 3.2 g/dL 3.2-5.0 [facility] Work Phone: Serum or plasma albumin/glob ulin mass ratioon 07-08-2022 Albumin/Globulin [Mass ratio] 0.8 {ratio} 0.9-2.4 [facility] Work Phone: Serum or plasma beta globuli n measurement by electrophoresis (mass/volume)on 07-08-2022 Beta globulin Elph [Mass/Vol] 1.0 g/dL 0.7-1.3 [facility] Work Phone: Serum or plasma calcium donna urement (mass/volume)on 07-08-2022 Calcium [Mass/Vol] 8.7 mg/dL 8.5-10.1 [facility] Work Phone: Serum or plasma creatinine m easurement (mass/volume)on 07-08-2022 Creatinine [Mass/Vol] 1.34 mg/dL 0.70-1.30 [facility] Work Phone: Comment on above: The validity of the calculated GFR & GFRAA in patients over 70 years has not been determined. Clinical correlation is essential. Serum or plasma ferritin yosef surement (mass/volume)on 07-08-2022 Ferritin [Mass/Vol] 54 ng/mL 26-388 [facility] Work Phone: Serum or plasma gamma globul in measurement by electrophoresis (mass/volume)on 07-08-2022 Gamma globulin Elph [Mass/Vol] 1.3 g/dL 0.4-1.8 [facility] Work Phone: Serum or plasma immunoelectr ophoresis interpretation (nominal result)on 07-08-2022 Interpretation IEP [Interp] Comment . [facility] Work Phone: Comment on above: Immunofixation shows IgG monoclonal protein with lambdalight chain specificity.Immunofixation shows IgM monoclonal protein with kappalight chain specificity. Serum or plasma iron saturat ion measurement (mass fraction)on 07-08-2022 Iron saturation [Mass fraction] 20.4 % 15.0-55.0 [facility] Work Phone: Serum or plasma urea nitroge n measurement (mass/volume)on 07-08-2022 Urea nitrogen [Mass/Vol] 14 mg/dL 7-18 [facility] Work Phone: Thin prep Papanicolaou smear with manual screeningon 07-08-2022 Thin prep Papanicolaou smear with manual screening 18 U/L 15-37 [facility] Work Phone: Thin prep Papanicolaou smear with manual screening 6 5-15 [facility] Work Phone: Thin prep Papanicolaou smear with manual screening 1.1 0.7-1.7 [facility] Work Phone: Total protein bloodon 2021 Protein [Mass/Vol] 6.7 g/dL 6.0-8.5 [facility] Work Phone: Absolute lymphocyte counton 06-19-2022 Lymphocytes Auto (Unsp spec) [#/Vol] 1.86 10*3/uL 0.83-4.51 [facility] Work Phone: Basophil percentageon 2021 Basophils/100 WBC (Bld) 0.4 % 0-1 [facility] Work Phone: Bilirubin [Mass/Vol] 0.40 mg/dL 0.20-1.00 [facility] Work Phone: Comment on above: For patients on eltr ombopag therapy, use of Dimension [place]ile TBIL is not recommended. Chloride [Moles/Vol] 103 mmol/L 98-107 [facility] Work Phone: Eosinophils/100 WBC (Bld) 2.6 % 0-5 [facility] Work Phone: Glucose [Mass/Vol] 96 mg/dL 74-106 [facility] Work Phone: Neutrophils (Bld) [#/Vol] 1.8 10*3/uL 2.0-7.7 [facility] Work Phone: Neutrophils/100 WBC (Bld) 39.8 % 47-70 [facility] Work Phone: [phone] Potassium [Moles/Vol] 3.8 mmol/L 3.5-5.1 [facility] Work Phone: [phone] Protein [Mass/Vol] 7.4 g/dL 6.4-8.2 [facility] Work Phone: Sodium [Moles/Vol] 137 mmol/L 136-145 [facility] Work Phone: WBC (Bld) [#/Vol] 4.6 10*3/uL 4.4-11.0 [facility] Work Phone: Blood erythrocytes count (nu mber/volume)on 06-19-2022 RBC (Bld) [#/Vol] 4.38 10*6/uL 4.6-6.2 [facility] Work Phone: Blood hemoglobin measurement (mass/volume)on 06-19-2022 Hemoglobin (Bld) [Mass/Vol] 13.3 g/dL 13.0-16.5 [facility] Work Phone: [phone] Blood lymphocytes/100 leukoc yteson 06-19-2022 Lymphocytes/100 WBC (Bld) 40.6 % 19-41 [facility] Work Phone: [phone] Blood monocytes/100 leukocyt eson 06-19-2022 Monocytes/100 WBC (Bld) 16.4 % 0-10 [facility] Work Phone: Blood platelet mean volumeon 06-19-2022 Platelet mean volume (Bld) [Entitic vol] 10.0 fL 6.2-12.0 [facility] Work Phone: Determination of erythrocyte mean corpuscular volume (MCV)on 06-19-2022 MCV (RBC) [Entitic vol] 90.9 fL 80-94 [facility] Work Phone: Hematocrit Auto (Bld) [Volum e fraction]on 06-19-2022 Hematocrit (Bld) [Volume fraction] 39.8 % 40-54 [facility] Work Phone: Laboratory - Chemistry and C hemistry - challengeon 06-19-2022 ALP [Catalytic activity/Vol] 95 U/L 45-117 [facility] Work Phone: ALT [Catalytic activity/Vol] 18 U/L 16-61 [facility] Work Phone: CO2 [Moles/Vol] 27.0 mmol/L 21.0-32.0 [facility] Work Phone: Globulin (S) [Mass/Vol] 4.1 g/dL 2.2-4.2 [facility] Work Phone: Urea nitrogen/Creatinine [Mass ratio] 10.3 mg/mg 10-20 [facility] Work Phone: Laboratory - Hematology and Cell countson 06-19-2022 Erythrocyte distribution width (RBC) [Entitic vol] 44.1 fL 35.1-43.9 [facility] Work Phone: Erythrocyte distribution width (RBC) [Ratio] 13.3 % 11.6-14.6 [facility] Work Phone: Immature granulocytes/100 WBC (Bld) 0.200 % 0.0-0.9 [facility] Work Phone: Comment on above: IG% - Immature Granu locytes (promyelocytes, myelocytes and metamyelocytes) > 1% indicates that a LEFT SHIFT is Present. MCH (RBC) [Entitic mass] 30.4 pg 27.0-32.0 [facility] Work Phone: Nucleated RBC/100 WBC (Bld) [Ratio] 0 % 0-5 [facility] Work Phone: MCHC Auto (RBC) [Mass/Vol]on 06-19-2022 MCHC (RBC) [Mass/Vol] 33.4 g/dL 32-36 [facility] Work Phone: No Panel Informationon 06-19 Estimated GFR (MDRD) Amer 70 mL/min >60 [facility] Work Phone: Comment on above: GFR Calc Estimated GFR (MDRD) Non-Af Amer 58 mL/min >60 [facility] Work Phone: Comment on above: Non- GFR Calc Thyroid Stimulating Hormone (TSH) 2.13 uIU/mL 0.358-3.74 [facility] Work Phone: Vitamin D 25-Hydroxy 24.2 ng/mL [facility] Work Phone: Comment on above: Vitamin D 25(OH) Sta tus Range Deficiency <20 ng/mL (50nmol/L) Insufficiency 20 - 30 ng/mL (50 - 75 nmol/L) Sufficiency 30 - 100 ng/mL (75 - 250 nmol/L) Toxicity >100 ng/mL (>250 nmol/L) Platelets bldon 06-19-2022 Platelets (Bld) [#/Vol] 175 10*3/uL 150-450 [facility] Work Phone: Serum or plasma albumin donna urement (mass/volume)on 06-19-2022 Albumin [Mass/Vol] 3.3 g/dL 3.2-5.0 [facility] Work Phone: Serum or plasma albumin/glob ulin mass ratioon 06-19-2022 Albumin/Globulin [Mass ratio] 0.8 {ratio} 0.9-2.4 [facility] Work Phone: Serum or plasma calcium donna urement (mass/volume)on 06-19-2022 Calcium [Mass/Vol] 8.6 mg/dL 8.5-10.1 [facility] Work Phone: Serum or plasma creatinine m easurement (mass/volume)on 06-19-2022 Creatinine [Mass/Vol] 1.26 mg/dL 0.70-1.30 [facility] Work Phone: Comment on above: The validity of the calculated GFR & GFRAA in patients over 70 years has not been determined. Clinical correlation is essential. Serum or plasma urea nitroge n measurement (mass/volume)on 06-19-2022 Urea nitrogen [Mass/Vol] 13 mg/dL 7-18 [facility] Work Phone: Thin prep Papanicolaou smear with manual screeningon 06-19-2022 Thin prep Papanicolaou smear with manual screening 18 U/L 15-37 [facility] Work Phone: Thin prep Papanicolaou smear with manual screening 7 5-15 [facility] Work Phone: Absolute lymphocyte counton 03-04-2022 Lymphocytes Auto (Unsp spec) [#/Vol] 1.88 10*3/uL 0.83-4.51 [facility] Work Phone: Basophil percentageon 2021 Basophils/100 WBC (Bld) 0.5 % 0-1 [facility] Work Phone: Bilirubin [Mass/Vol] 0.50 mg/dL 0.20-1.00 [facility] Work Phone: Comment on above: For patients on eltr ombopag therapy, use of Dimension Castile TBIL is not recommended. Chloride [Moles/Vol] 104 mmol/L 98-107 [facility] Work Phone: Eosinophils/100 WBC (Bld) 1.0 % 0-5 [facility] Work Phone: Glucose [Mass/Vol] 122 mg/dL 74-106 [facility] Work Phone: Comment on above: Fasting Glucose resu lt from 100 to 125 mg/dL suggests IMPAIRED HOMEOSTASIS per A.D.A. criteria. Neutrophils (Bld) [#/Vol] 1.7 10*3/uL 2.0-7.7 [facility] Work Phone: Neutrophils/100 WBC (Bld) 40.1 % 47-70 [facility] Work Phone: [phone] Potassium [Moles/Vol] 3.8 mmol/L 3.5-5.1 [facility] Work Phone: Protein [Mass/Vol] 7.3 g/dL 6.4-8.2 [facility] Work Phone: Sodium [Moles/Vol] 138 mmol/L 136-145 [facility] Work Phone: WBC (Bld) [#/Vol] 4.2 10*3/uL 4.4-11.0 [facility] Work Phone: Blood erythrocytes count (nu mber/volume)on 03-04-2022 RBC (Bld) [#/Vol] 4.38 10*6/uL 4.6-6.2 [facility] Work Phone: Blood hemoglobin measurement (mass/volume)on 03-04-2022 Hemoglobin (Bld) [Mass/Vol] 13.3 g/dL 13.0-16.5 [facility] Work Phone: Blood lymphocytes/100 leukoc yteson 03-04-2022 Lymphocytes/100 WBC (Bld) 45.2 % 19-41 [facility] Work Phone: Blood monocytes/100 leukocyt eson 03-04-2022 Monocytes/100 WBC (Bld) 13.0 % 0-10 [facility] Work Phone: Blood platelet mean volumeon 03-04-2022 Platelet mean volume (Bld) [Entitic vol] 9.9 fL 6.2-12.0 [facility] Work Phone: Determination of erythrocyte mean corpuscular volume (MCV)on 03-04-2022 MCV (RBC) [Entitic vol] 92.0 fL 80-94 [facility] Work Phone: Hematocrit Auto (Bld) [Volum e fraction]on 03-04-2022 Hematocrit (Bld) [Volume fraction] 40.3 % 40-54 [facility] Work Phone: Laboratory - Chemistry and C hemistry - challengeon 03-04-2022 ALP [Catalytic activity/Vol] 96 U/L 45-117 [facility] Work Phone: ALT [Catalytic activity/Vol] 18 U/L 16-61 [facility] Work Phone: CO2 [Moles/Vol] 28.0 mmol/L 21.0-32.0 [facility] Work Phone: Globulin (S) [Mass/Vol] 3.9 g/dL 2.2-4.2 [facility] Work Phone: Urea nitrogen/Creatinine [Mass ratio] 7.9 mg/mg 10-20 [facility] Work Phone: Laboratory - Hematology and Cell countson 03-04-2022 Erythrocyte distribution width (RBC) [Entitic vol] 42.7 fL 35.1-43.9 [facility] Work Phone: Erythrocyte distribution width (RBC) [Ratio] 12.8 % 11.6-14.6 [facility] Work Phone: Immature granulocytes/100 WBC (Bld) 0.200 % 0.0-0.9 [facility] Work Phone: Comment on above: IG% - Immature Granu locytes (promyelocytes, myelocytes and metamyelocytes) > 1% indicates that a LEFT SHIFT is Present. MCH (RBC) [Entitic mass] 30.4 pg 27.0-32.0 [facility] Work Phone: Nucleated RBC/100 WBC (Bld) [Ratio] 0 % 0-5 [facility] Work Phone: MCHC Auto (RBC) [Mass/Vol]on 03-04-2022 MCHC (RBC) [Mass/Vol] 33.0 g/dL 32-36 [facility] Work Phone: No Panel Informationon 03-04 Estimated GFR (MDRD) Amer 57 mL/min >60 [facility] Work Phone: Comment on above: GFR Calc Estimated GFR (MDRD) Non-Af Amer 47 mL/min >60 [facility] Work Phone: Comment on above: Non- GFR Calc Thyroid Stimulating Hormone (TSH) 2.06 uIU/mL 0.358-3.74 [facility] Work Phone: Vitamin D 25-Hydroxy 23.2 ng/mL [facility] Work Phone: Comment on above: Vitamin D 25(OH) Sta tus Range Deficiency <20 ng/mL (50nmol/L) Insufficiency 20 - 30 ng/mL (50 - 75 nmol/L) Sufficiency 30 - 100 ng/mL (75 - 250 nmol/L) Toxicity >100 ng/mL (>250 nmol/L) Platelets bldon 03-04-2022 Platelets (Bld) [#/Vol] 173 10*3/uL 150-450 [facility] Work Phone: Serum or plasma albumin donna urement (mass/volume)on 03-04-2022 Albumin [Mass/Vol] 3.4 g/dL 3.2-5.0 [facility] Work Phone: Serum or plasma albumin/glob ulin mass ratioon 03-04-2022 Albumin/Globulin [Mass ratio] 0.9 {ratio} 0.9-2.4 [facility] Work Phone: Serum or plasma calcium donna urement (mass/volume)on 03-04-2022 Calcium [Mass/Vol] 8.2 mg/dL 8.5-10.1 [facility] Work Phone: Serum or plasma creatinine m easurement (mass/volume)on 03-04-2022 Creatinine [Mass/Vol] 1.51 mg/dL 0.70-1.30 [facility] Work Phone: Comment on above: The validity of the calculated GFR & GFRAA in patients over 70 years has not been determined. Clinical correlation is essential. Serum or plasma urea nitroge n measurement (mass/volume)on 03-04-2022 Urea nitrogen [Mass/Vol] 12 mg/dL 7-18 [facility] Work Phone: [phone] Thin prep Papanicolaou smear with manual screeningon 03-04-2022 Thin prep Papanicolaou smear with manual screening 15 U/L 15-37 [facility] Work Phone: Thin prep Papanicolaou smear with manual screening 6 5-15 [facility] Work Phone: Absolute lymphocyte counton 01-08-2022 Lymphocytes Auto (Unsp spec) [#/Vol] 1.65 10*3/uL 0.83-4.51 [facility] Work Phone: Albumin Elph [Mass/Vol]on Albumin [Mass/Vol] 3.4 g/dL [facility] Work Phone: Basophil percentageon 2021 Basophils/100 WBC (Bld) 0.2 % 0-1 [facility] Work Phone: Bilirubin [Mass/Vol] 0.50 mg/dL 0.20-1.00 [facility] Work Phone: Comment on above: For patients on eltr ombopag therapy, use of Dimension Castile TBIL is not recommended. Chloride [Moles/Vol] 104 mmol/L 98-107 [facility] Work Phone: Eosinophils/100 WBC (Bld) 1.5 % 0-5 [facility] Work Phone: [phone] Glucose [Mass/Vol] 99 mg/dL 74-106 [facility] Work Phone: [phone] Neutrophils (Bld) [#/Vol] 2.4 10*3/uL 2.0-7.7 [facility] Work Phone: Neutrophils/100 WBC (Bld) 50.6 % 47-70 [facility] Work Phone: Potassium [Moles/Vol] 3.7 mmol/L 3.5-5.1 [facility] Work Phone: Protein [Mass/Vol] 7.7 g/dL 6.4-8.2 [facility] Work Phone: Sodium [Moles/Vol] 139 mmol/L 136-145 [facility] Work Phone: WBC (Bld) [#/Vol] 4.8 10*3/uL 4.4-11.0 [facility] Work Phone: Blood erythrocytes count (nu mber/volume)on 01-08-2022 RBC (Bld) [#/Vol] 4.60 10*6/uL 4.6-6.2 [facility] Work Phone: Blood hemoglobin measurement (mass/volume)on 01-08-2022 Hemoglobin (Bld) [Mass/Vol] 14.3 g/dL 13.0-16.5 [facility] Work Phone: Blood lymphocytes/100 leukoc yteson 01-08-2022 Lymphocytes/100 WBC (Bld) 34.2 % 19-41 [facility] Work Phone: Blood monocytes/100 leukocyt eson 01-08-2022 Monocytes/100 WBC (Bld) 13.3 % 0-10 [facility] Work Phone: Blood platelet mean volumeon 01-08-2022 Platelet mean volume (Bld) [Entitic vol] 10.1 fL 6.2-12.0 [facility] Work Phone: Determination of erythrocyte mean corpuscular volume (MCV)on 01-08-2022 MCV (RBC) [Entitic vol] 94.1 fL 80-94 [facility] Work Phone: [phone] Hematocrit Auto (Bld) [Volum e fraction]on 01-08-2022 Hematocrit (Bld) [Volume fraction] 43.3 % 40-54 [facility] Work Phone: Interpretation of serum or p lasma protein pattern by immunofixation (narrative resulton 01-08-2022 Protein Fractions Immunofixation Carlin [Interp] See comment [facility] Work Phone: Comment on above: Monoclonal IgG kappa = 0.5 g/dlMonoclonal IgG lambda = 0.2 g/dlDue to the small quantity of monoclonal IgM kappa, unable toquantitate the M-spike. Iron measurement (mass/mass) on 01-08-2022 Iron (Unsp spec) [Mass/Mass] 72 ug/dL 65-175 [facility] Work Phone: Laboratory - Chemistry and C hemistry - challengeon 01-08-2022 ALP [Catalytic activity/Vol] 103 U/L 45-117 [facility] Work Phone: ALT [Catalytic activity/Vol] 18 U/L 16-61 [facility] Work Phone: CO2 [Moles/Vol] 27.0 mmol/L 21.0-32.0 [facility] Work Phone: Urea nitrogen/Creatinine [Mass ratio] 13.0 mg/mg 10-20 [facility] Work Phone: Laboratory - Hematology and Cell countson 01-08-2022 Erythrocyte distribution width (RBC) [Entitic vol] 44.8 fL 35.1-43.9 [facility] Work Phone: Erythrocyte distribution width (RBC) [Ratio] 13.2 % 11.6-14.6 [facility] Work Phone: Immature granulocytes/100 WBC (Bld) 0.200 % 0.0-0.9 [facility] Work Phone: [phone] Comment on above: IG% - Immature Granu locytes (promyelocytes, myelocytes and metamyelocytes) > 1% indicates that a LEFT SHIFT is Present. MCH (RBC) [Entitic mass] 31.1 pg 27.0-32.0 [facility] Work Phone: Nucleated RBC/100 WBC (Bld) [Ratio] 0 % 0-5 [facility] Work Phone: MCHC Auto (RBC) [Mass/Vol]on 01-08-2022 MCHC (RBC) [Mass/Vol] 33.0 g/dL 32-36 [facility] Work Phone: No Panel Informationon 01-08 Addendum Document Comment [facility] Work Phone: Comment on above: Protein electrophore sis scan will follow via computer,mail, or disease management nurse delivery.Performed at: [address] [id number] Director: Alcides Alicea PhD, Phone: [phone] Estimated GFR (MDRD) Amer 72 mL/min >60 [facility] Comment on above: GFR Calc Estimated GFR (MDRD) Non-Af Amer 60 mL/min >60 [facility] Work Phone: Comment on above: Non- GFR Calc Total Iron Binding Capacity 294 ug/dL 250-450 [facility] Work Phone: 72 mL/min >60 [facility] Platelets bldon 01-08-2022 Platelets (Bld) [#/Vol] 176 10*3/uL 150-450 [facility] Work Phone: Serum hadtu-0-ghdfevgh measu rement by electrophoresison 01-08-2022 Alpha 1 globulin Elph [Mass/Vol] 0.2 g/dL [facility] Work Phone: Alpha 1 globulin Elph [Mass/Vol] 0.9 g/dL [facility] Work Phone: Serum globulin measurement ( mass/volume)on 01-08-2022 Globulin (S) [Mass/Vol] 3.6 g/dL [facility] Work Phone: Serum or plasma IgA measurem ent (mass/volume)on 01-08-2022 IgA [Mass/Vol] 486 mg/dL [facility] Work Phone: Serum or plasma IgG measurem ent (mass/volume)on 01-08-2022 IgG [Mass/Vol] 1393 mg/dL [facility] Work Phone: Serum or plasma IgM measurem ent (mass/volume)on 01-08-2022 IgM [Mass/Vol] 160 mg/dL [facility] Work Phone: Serum or plasma albumin donna urement (mass/volume)on 01-08-2022 Albumin [Mass/Vol] 3.3 g/dL 3.2-5.0 [facility] Work Phone: Serum or plasma albumin/glob ulin mass ratioon 01-08-2022 Albumin/Globulin [Mass ratio] 0.8 {ratio} 0.9-2.4 [facility] Work Phone: Serum or plasma beta globuli n measurement by electrophoresis (mass/volume)on 01-08-2022 Beta globulin Elph [Mass/Vol] 1.1 g/dL [facility] Work Phone: Serum or plasma calcium donna urement (mass/volume)on 01-08-2022 Calcium [Mass/Vol] 8.6 mg/dL 8.5-10.1 [facility] Work Phone: Serum or plasma creatinine m easurement (mass/volume)on 01-08-2022 Creatinine [Mass/Vol] 1.23 mg/dL 0.70-1.30 [facility] Work Phone: Comment on above: The validity of the calculated GFR & GFRAA in patients over 70 years has not been determined. Clinical correlation is essential. Serum or plasma ferritin yosef surement (mass/volume)on 01-08-2022 Ferritin [Mass/Vol] 37 ng/mL 26-388 [facility] Work Phone: Serum or plasma gamma globul in measurement by electrophoresis (mass/volume)on 01-08-2022 Gamma globulin Elph [Mass/Vol] 1.4 g/dL [facility] Work Phone: Serum or plasma immunoelectr ophoresis interpretation (nominal result)on 01-08-2022 Interpretation IEP [Interp] Comment [facility] Work Phone: Comment on above: Immunofixation shows IgG monoclonal protein with kappalight chain specificity.Please note that samples from patients receivingDARZALEX(R) (daratumumab) treatment can appear as an IgGkappa and mask a complete response. If this patient isreceiving CJ, this DAMARIS assay interference can be removedby ordering test number [id number], Daratumumab-Specific, Serum and submitting a new sample for testing orby calling the lab to add this test to the current sample.Immunofixation shows IgM monoclonal protein with kappalight chain specificity.Immunofixation shows IgG monoclonal protein with lambdalight chain specificity. Serum or plasma iron saturat ion measurement (mass fraction)on 01-08-2022 Iron saturation [Mass fraction] 24.5 % 15.0-55.0 [facility] Work Phone: Serum or plasma urea nitroge n measurement (mass/volume)on 01-08-2022 Urea nitrogen [Mass/Vol] 16 mg/dL 7-18 [facility] Work Phone: Thin prep Papanicolaou smear with manual screeningon 01-08-2022 Thin prep Papanicolaou smear with manual screening 19 U/L 15-37 [facility] Work Phone: Thin prep Papanicolaou smear with manual screening 8 5-15 [facility] Work Phone: Thin prep Papanicolaou smear with manual screening 1.0 [facility] Work Phone: Total protein bloodon 2021 Protein [Mass/Vol] 7.0 g/dL [facility] Work Phone: Basophil percentageon 2020 Basophil percentage 3.8 mg/dL 2.5-4.9 [facility] Work Phone: Chloride [Moles/Vol] 103 mmol/L 98-107 [facility] Work Phone: Glucose [Mass/Vol] 89 mg/dL 74-106 [facility] Work Phone: Comment on above: Please note revised GLUCOSE reference range effective 2017. Potassium [Moles/Vol] 3.6 mmol/L 3.5-5.1 [facility] Work Phone: Sodium [Moles/Vol] 140 mmol/L 136-145 [facility] Work Phone: Laboratory - Chemistry and C hemistry - challengeon 11-11-2021 CO2 [Moles/Vol] 30.0 mmol/L 21.0-32.0 [facility] Work Phone: Urea nitrogen/Creatinine [Mass ratio] 12.4 mg/mg 10- [facility] Work Phone: No Panel Informationon 11-11 Estimated GFR (MDRD) Amer 80 mL/min >60 [facility] Work Phone: Comment on above: GFR Calc Estimated GFR (MDRD) Non-Af Amer 66 mL/min >60 [facility] Work Phone: Comment on above: Non- GFR Calc Serum or plasma albumin donna urement (mass/volume)on 11-11-2021 Albumin [Mass/Vol] 3.5 g/dL 3.2-5.0 [facility] Work Phone: Serum or plasma calcium donna urement (mass/volume)on 11-11-2021 Calcium [Mass/Vol] 8.6 mg/dL 8.5-10.1 [facility] Work Phone: Serum or plasma creatinine m easurement (mass/volume)on 11-11-2021 Creatinine [Mass/Vol] 1.13 mg/dL 0.70-1.30 [facility] Work Phone: Comment on above: The validity of the calculated GFR & GFRAA in patients over 70 years has not been determined. Clinical correlation is essential. Serum or plasma urea nitroge n measurement (mass/volume)on 11-11-2021 Urea nitrogen [Mass/Vol] 14 mg/dL 7-18 [facility] Work Phone: Urine creatinine measurement (mass/volume)on 11-11-2021 Creatinine (U) [Mass/Vol] 98.20 mg/dL NO RANGE EST. [facility] Work Phone: Urine protein measurement (m ass/volume)on 11-11-2021 Protein (U) [Mass/Vol] 183.5 mg/dL 0.0-11.8 [facility] Work Phone: Urine protein/creatinine mas s ratioon 11-11-2021 Protein/Creatinine (U) [Mass ratio] 1869 mg/g CRE 0-200 [facility] Work Phone: [employer] mix RAST testo n 06-27-2021 LDH [Catalytic activity/Vol] 160 U/L 87-241 [facility] Laboratory - Chemistry and C hemistry - challengeon 06-27-2021 Cobalamin (Vitamin B12) [Mass/Vol] 802 pg/mL 211-911 [facility] Work Phone: No Panel Informationon 06-27 Free Lambda Light Chains, Quant 31.9 mg/L High 5.7-26.3 [facility] 31.9 mg/L High 5.7-26.3 [facility] Serum immunoglobulin kappa l ight chains/immunoglobulin lambda light chains mass ratioon 06-27-2021 Immunoglobulin light chains.kappa/Immunoglobul in light chains.lambda (S) [Mass ratio] 2.82 High 0.26-1.65 [facility] Comment on above: Performed at: [address] [id number] Director: Alcides Alicea PhD, Phone: [phone] Serum or plasma immunoglobul in kappa light chains measurement (mass/volume)on 06-27-2021 Immunoglobulin light chains.kappa [Mass/Vol] 89.9 mg/L High 3.3-19.4 [facility] Thin prep Papanicolaou smear with manual screeningon 06-27-2021 Thin prep Papanicolaou smear with manual screening 160 U/L 87-241 [facility] Work Phone: CNOVon 09-19-2019 CNOV Office Visit (AGVASACC) ELIAS SHAH ([id number]) 1940 M Date Time Provider Department 09/19/19 [...] Encephalopathy, He Was Discharged on 07/13/2019 to [facility] TCU. He Continued to Have Ongoing Problems with Bradycardia, Tachycardia, Atrial Fibrillation. On July 27 He Was Diagnosed with Pneumonia and Treated with IV Vancomycin and Cefepime. Additionally, in follow-up he had melena with acute blood loss anemia and was readmitted to [facility]. He was discharged on August 26, 2019 To custodial facility. Was finally discharged back home last [...] mm St. Cristhian Trifecta pericardial prosthesis at [facility] by Dr. 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 Rivers - Vitamin D deficiency PAST SURGICAL HISTORY Procedure Laterality Date - ATRIAL APPENDAGE LIGATION 07/04/2019 35 mm AtriCure clip at [facility] by Dr. Rivers - CABG (2) VEIN GRAFTS AND ARTERIAL GRAFT(S 07/04/2019 at [facility] by Dr. Rivers - REPAIR UMBILICAL HERNIA 12/04/2018 after bowel perforation done at [facility] Dr. Young - REPLAC AORT VALV PROSTH VALV 07/04/[address] Cristhian Trifecta pericardial prosthesis at [facility] by Dr. Rivers FAMILY HISTORY Problem Relation [...] on. he should follow up with his top frame maker and PCP as scheduled, and only needs [...] Ann for clearance to begin cardiac rehab [facility] Cardiac Rehabilitation Hours: Thursday, Thursday, Thursday: 8:00 am to 4:30 pm Thursday and : 6:00 am to 2:00 pm The cardiac rehabilitation department is located on the first floor of the hospital, near the [facility]. For more information, call . - Weight bearing restriction remains: No lifting more than 10 lbs. You may begin to gradually increase the amount of weight bearing. Cardiac rehab will help with this. - Please see your top frame maker regularly. They will take over medication management. [...] [G93.40] INVALID FOR* Coronary artery disease of tribe artery of betty*INVALID FOR* S/P AVR [Z95.2] [...] Ann for clearance to begin cardiac rehab [facility] Cardiac Rehabilitation Hours: Thursday, Thursday, Thursday: 8:00 am to 4:30 pm Thursday and : 6:00 am to 2:00 pm The cardiac rehabilitation department is located on the first floor of the hospital, near the [facility]. For more information, call . - Weight bearing restriction remains: No lifting more than 10 lbs. You may begin to gradually increase the amount of weight bearing. Cardiac rehab will help with this. - Please see your top frame maker regularly. They will take over medication management. - Please feel free to call us if you have any post-operative concerns. Thank you for coming to see me today!! Higinio Bacon APRN.DETECTIVE PRECINCT Prescriptions ordered this encounter Disp Refills Start [...] by HIGINIO BACON CNP on 09/19/19 [facility] PROGRESSon 09-19-2019 PROGRESS HNO ID: [id number] Author: Higinio Medina) KEE Bacon Service: ? [...] Encephalopathy, He Was Discharged on 07/13/2019 to [facility] TCU. He Continued to Have Ongoing Problems with Bradycardia, Tachycardia, Atrial Fibrillation. On July 27 He Was Diagnosed with Pneumonia and Treated with IV Vancomycin and Cefepime. Additionally, in follow-up he had melena with acute blood loss anemia and was readmitted to [facility]. He was discharged on August 26, 2019 To custodial facility. Was finally discharged back home last [...] mm St. Cristhian Trifecta pericardial prosthesis at [facility] by Dr. 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 Rivers - Vitamin D deficiency PAST SURGICAL HISTORY Procedure Laterality Date - ATRIAL APPENDAGE LIGATION 07/04/2019 35 mm AtriCure clip at [facility] by Dr. Rivers - CABG (2) VEIN GRAFTS AND ARTERIAL GRAFT(S 07/04/2019 at [facility] by Dr. Rivers - REPAIR UMBILICAL HERNIA 12/04/2018 after bowel perforation done at [facility] Dr. Young - REPLAC AORT VALV PROSTH VALV 07/04/[address] Cristhian Trifecta pericardial prosthesis at [facility] by Dr. Rivers FAMILY HISTORY Problem Relation [...] advised to change by Dr. Primo Bacon APRN.DETECTIVE PRECINCT In summary, Patient is doing quite well overall after his combined CABG aVR surgery, with no major complaints. Patient is released to drive, work. Patient should start cardiac rehab from this point on. he should follow up with his top frame maker and PCP as scheduled, and only needs to be seen here on a as needed basis. Thanks. Electronically signed by Higinio Bacon APRN.CNP on September 19, 2019, 2:33 PM [facility] CASE MANAGEMon 08-26-2019 CASE MANAGEM HNO ID: [id number] Author: Serene Amaya Service: Care Management Author Type: ? Type: Care Mgt Progress Note Filed: 08/29/2019 4:04 PM Note Text: CARE MANAGEMENT PROGRESS NOTE SERVICE DATE: 08/29/2019 SERVICE TIME: 1200 LOS: 6 days IM letter given to patient on 08/26/2019. SIGNATURE: Janee Amaya PATIENT NAME: Elias Shah DATE: August 29, 2019 TIME: 12:17 PM PAGER/CONTACT #: [phone] [facility] CASE MANAGEM HNO ID: [id number] Author: Barbara (Rn) Jude, RN Service: Care Management Author Type: Registered Nurse Type: Care Mgt Progress Note Filed: 08/26/2019 3:07 PM Note Text: CARE MANAGEMENT DISCHARGE NOTE SERVICE DATE: 08/26/2019 SERVICE TIME: 3:05 PM LOS: 6 days Admission Date: 08/20/2019 DISCHARGE ARRANGEMENT (list agency and phone number) group home facility: Was an expedited discharge program used? [...] and Phone #: [facility] ( [facility] ) [phone] / [phone]. Date of Trip: 08/26/2019 Type of Service: Wheelchair Is Patient Medicaid Pending: No Discussion of financial coverage occurred with Patient and Family . [place]iner Location: [address] [place] [address] Destination: SNF Financial Care Management Responsibility: None Estimated Charge: na Approving Director Child: lucia ADDITIONAL CONTACT RESOURCES: . Pt is D/C to SNF today. W/C transport at 4:30 PM, Patient and RN aware. TCVM to Amalia mccormack. SIGNATURE: Barbara Roque RN PATIENT NAME: Elias Shah DATE: August 26, 2019 TIME: 3:05 PM PAGER/CONTACT #: [phone] [facility] NURSING PROGon 08-26-2019 NURSING PROG HNO ID: [id number] Author: Yenifer GusmanRn) AGUSTO Tamayo Service: ? Author Type: Registered Nurse Type: Nursing Progress Note Filed: 08/26/2019 4:15 PM Note Text: Report called to Emiliano at [facility] at [phone]. [facility] NURSING PROG HNO ID: [id number] Author: Yenifer Tamayo RN Service: ? Author Type: Registered Nurse Type: Nursing Progress Note Filed: 08/26/2019 9:04 AM Note Text: Dr Peñaloza notified of pt's blood pressure and heart rate, potassium level. Ordered to hold Metoprolol and he will order Hydralazine. also notified of pt's c/o nausea and headache. PRN Zofran given. [facility] NURSING PROG HNO ID: [id number] Author: Rica Garcia RN Service: ? Author Type: Registered Nurse Type: Nursing Progress Note Filed: 08/26/2019 5:53 AM Note Text: Nursing Progress Note Patient Name: Elias Shah Patient Location: [id number]/[facility]- 4123-01 Daily Note: 0525: Paged sound at #[phone] regarding pt BP of 169/70 and HR 54, pt asymptomatic. 0546: Talked to Dr. Keane, orders to give Losartan early. This note was completed by: Rica Garcia RN [facility] PLAN OF CAREon 08-26-2019 PLAN OF CARE HNO ID: [id number] Author: Craig Duron (Pharmacist) Service: Pharmacy Author [...] Discharge Medication List. Patient discharged today to [facility] CRAIG DURON PHARMACIST August 26, 2019 3:27 [...] HYDROcodone-acetamino phen 5-325 mg per tablet [facility] PROGRESSon 08-26-2019 PROGRESS HNO ID: [id number] Author: Janee Mccauley Service: General Surgery Author [...] 08/26/1961 08/26/19 07 - 08/27/19 0659 Shift 8206-0015 3973-8393 7193-8878 24 Hour Total 7262-2939 2078-1846 4273-9543 24 Hour Total INTAKE PO 1080 201 301 2983 PO 1080 162 838 6023 Shift Total 1080 383 744 4749 OUTPUT Urine 100 100 Void (ml) 100 [...] mm St. Cristhian Trifecta pericardial prosthesis at [facility] by Dr. Rivers - Essential hypertension 02/11/2019 - Hyperlipidemia 02/01/2019 79 year old male with PMH HTN, HLD, atrial fibrillation, incarcerated umbilical hernia s/p SBR and hernia repair 11/[address] Felton at [facility], CAD and now s/p 2 vessel [...] with attending: Dr Farris SIGNATURE: Janee Mccauley APRN.PAINT BOOTH OPERATOR PATIENT NAME: Elias Shah DATE: August 26, 2019 TIME: 6:17 AM Emergency General Surgery Service Pager: For questions or concerns Thu-Thu 6a-5p please page [phone]. After 5pm and on Weekends and Holidays, please page [phone]. [facility] THERAPY NTon 08-26-2019 THERAPY NT HNO ID: [id number] Author: Aminata Cervantes/Carleen Durand Service: Occupational Therapy Author Type: Occupational Therapist Type: Therapy (PT/OT/Speech/Resp) Filed: 08/26/2019 12:01 PM Note Text: OCCUPATIONAL THERAPY MISSED VISIT SERVICE DATE: 08/26/2019 SERVICE TIME: 1147 to 1147 ROOM: [place] [address] Attempted Treatment. Patient not seen due to Declined. Patient reports he has been nauseas all day and does not want to do therapy at this time. Will follow up as able. SIGNATURE: ERIC Mcclain/Carroll PATIENT NAME: Elias Shah DATE: August 26, 2019 TIME: 12:01 PM [facility] CONSULTon 08-25-2019 CONSULT HNO ID: [id number] Author: Lisette Murillo Service: General Surgery Author Type: Resident Type: Consults Filed: 08/25/2019 4:06 PM Note Text: Attestation signed by Jerilyn Farris at 08/26/2019 4:23 PM ==== SURGERY STAFF: I discussed the management of this case with the surgical garment assembler and agree with the plan of care [...] mm St. Cristhian Trifecta pericardial prosthesis at [facility] by Dr. 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 Rivers - Vitamin D deficiency PAST SURGICAL HISTORY Procedure Laterality Date - ATRIAL APPENDAGE LIGATION 07/04/2019 35 mm AtriCure clip at [facility] by Dr. Rivers - CABG (2) VEIN GRAFTS AND ARTERIAL GRAFT(S 07/04/2019 at [facility] by Dr. Rivers - REPAIR UMBILICAL HERNIA 12/04/2018 after bowel perforation done at [facility] Dr. Young - REPLAC AORT VALV PROSTH VALV 07/04/[address] Cristhian Trifecta pericardial prosthesis at [facility] by Dr. Rivers FAMILY HISTORY Problem Relation [...] described above. 4. Otherwise no acute disease. Mobile Home Set Up Person: PSCB Transcribe Date/Time: Aug 23 2019 4:28P Dictated by : PEGGY TEJEDA MD This examination was interpreted and the report reviewed and electronically signed by: PEGGY TEJEDA MD on Aug 23 2019 4:31PM EST Impression/Recommenda tions Patient is an 79 yo male with PMH HTN, HLD, atrial fibrillation, incarcerated umbilical hernia s/p SBR and hernia repair 11/[address] Felton at [facility], [facility] and now s/p 2 vessel CABG and [...] 2019 TIME: 3:48 PM PAGER/CONTACT #: [phone] [facility] CONSULT PROGon 08-25-2019 CONSULT PROG HNO ID: [id number] Author: Zacarias Miles Service: Gastroenterology Author Type: [...] iron supplement for about a week, call [phone] to schedule appointment [address] Peter). ? GI will sign off call with questions SIGNATURE: Zacarias Miles APRN.CNP PATIENT NAME: Elias Shah DATE: August 25, 2019 TIME: 2:46 PM NUMBER: [phone] [facility] NURSING PROGon 08-25-2019 NURSING PROG HNO ID: [id number] Author: Yenifer (Rn) AGUSTO Tamayo Service: ? Author Type: Registered Nurse Type: Nursing Progress Note Filed: 08/25/2019 9:25 AM Note Text: Dr Peñaloza notified of pt's c/o painful rash on forehead and raised, reddened cyst-like area to right breast. He will address. [facility] NURSING PROG HNO ID: [id number] Author: Fernanda GusmanRn) AGUSTO Diaz Service: ? Author Type: Registered Nurse Type: Nursing Progress Note Filed: 08/25/2019 3:45 AM Note Text: Nursing Progress Note Patient Name: Elias Shah Patient Location: [id number]/[facility]- 4123-01 Daily Note: 0255: RN paged Sound at #[phone] regarding pt's BP of 170/72. Pt asymptomatic. No new orders at this time. RN will continue to monitor. This note was completed by: Fernanda Diaz RN [facility] NUTRITIONon 08-25-2019 NUTRITION HNO ID: [id number] Author: Sydnee Moses) ESTELA Fisher Service: Nutrition [...] August 25, 2019 TIME: 8:09 AM PAGER: [phone] [facility] PROCEDUREon 08-25-2019 PROCEDURE HNO ID: [id number] Author: Lisette Murillo Service: General Surgery Author Type: Resident Type: Procedures Filed: 08/25/2019 5:56 PM Note Text: Attestation signed by Jerilyn Farris at 08/26/2019 4:23 PM Jerilyn Farris MD August 26, 2019 BEDSIDE PROCEDURE NOTE PROCEDURE DATE: August 25, 2019 PROCEDURE START TIME: 4:50 pm PRIMARY PROCEDURALIST: Lisette Murillo MD SYSTEMS PLANNER(S): Ryne INFORMED CONSENT: Informed Consent obtained and [...] 2019 TIME: 5:53 PM PAGER/CONTACT #: [phone] [facility] PROGRESSon 08-25-2019 PROGRESS HNO ID: [id number] Author: Ben Peñaloza Service: Hospital Medicine Author [...] -- 08/24/19 0945 activity - mobilize patient (co,oh) 08/20/19 1615 vte pharmacologic prophylaxis contraindicated (co,oh) 08/20/19 1615 pneumatic compression stockings (co,mi) VTE Prophylaxis: VTE prophylaxis appropriate SIGNATURE: Ben Peñaloza MD PATIENT NAME: Elias Shah DATE: 08/25/2019 TIME: 3:07 PM PAGER: [phone] [facility] PROGRESS HNO ID: [id number] Author: Craig Duron (Pharmacist) Service: Pharmacy Author [...] this patient. Signature: JESUS ALBERTO PEREZ Pager/Extension: [phone] [facility] THERAPY NTon 08-25-2019 THERAPY NT HNO ID: [id number] Author: Nohemi GusmanPt) Shefali Service: Physical Therapy Author Type: Physical Therapist Type: Therapy (PT/OT/Speech/Resp) Filed: 08/25/2019 1:57 PM Note Text: Physical Therapy Treatment SERVICE DATE: 08/25/2019 SERVICE TIME: 1055 to 1118 ROOM: [place] [address] Recommended Discharge Disposition: Subacute/SNF Justification For Post [...] gait and mobility-other Interventions Provided: Gait Training (32767);Therapeutic Activity (80429) Therapeutic Activity (33938) Treatment Minutes: 15 1 unit Skilled Intervention(s): [...] marching, ) x 10-15 reps. Gait Training (78600) Treatment Minutes: 8 1 unit Skilled Intervention(s): [...] Suzan decreased;Step length decreased;Non-functio nal gait speed [facility]: 7: Walk 25 feet or more Please [...] DATE: August 25, 2019 TIME: 1:57 PM [facility] CASE MANAGEMon 08-24-2019 CASE MANAGEM HNO ID: [id number] Author: Barbara (Rn) AGUSTO Roque Service: Care Management Author Type: Registered Nurse Type: Care Mgt Progress Note Filed: 08/24/2019 3:52 PM Note Text: CARE MANAGEMENT PROGRESS NOTE SERVICE DATE: 08/24/2019 SERVICE TIME: 3:42 PM LOS: 4 days Needs Prior to Discharge: Discharge Transportation [facility] has accepted pt and he is ready to D/C when medically stable. Will need W/C transport. ADDENDUM: Notified pt's sisterAmalia of D/C plan. SIGNATURE: Barbara Roque RN PATIENT NAME: Elias Grantdes DATE: August 24, 2019 TIME: 3:42 PM PAGER/CONTACT #: [phone] [facility] CASE MANAGEM HNO ID: [id number] Author: Barbara Roque RN Service: Care Management Author Type: Registered Nurse Type: Care Mgt Progress Note Filed: 08/24/2019 1:01 PM Note Text: CARE MANAGEMENT PROGRESS NOTE SERVICE DATE: 08/24/2019 SERVICE TIME: 12:59 PM LOS: 4 days FREEDOM OF CHOICE GIVEN: Yes Pt does not think he can do 3 hrs of intensive therapy at Rehab. Preference: Would like to go to [facility]. [place]. Referral placed. SIGNATURE: Barbara Roque RN PATIENT NAME: Elias Shah DATE: August 24, 2019 TIME: 12:58 PM PAGER/CONTACT #: [phone] [facility] CASE MANAGEM HNO ID: [id number] Author: Barbara Roque RN Service: Care Management Author Type: Registered Nurse Type: Care Mgt Progress Note Filed: 08/24/2019 12:58 PM Note Text: CARE MANAGEMENT PROGRESS NOTE SERVICE DATE: 08/24/2019 SERVICE TIME: 10:34 AM LOS: 4 days FREEDOM OF CHOICE GIVEN: Yes Met with pt, PT/OT rec Acute Rehab. Pt is from [place] and wants to stay in the area Preference: [place] [facility] Referral placed. Pt would like CM to let his sister, Amalia know and she will be hame after 1 PM today. Pt will need transport at D/C, as sister does not drive long distance nor on the freeway. SIGNATURE: Barbara Roque RN PATIENT NAME: Elias Farshad Shah DATE: August 24, 2019 TIME: 10:34 AM PAGER/CONTACT #: [phone] [facility] CONSULT PROGon 08-24-2019 CONSULT PROG HNO ID: [id number] Author: Zacarias Miles Service: Gastroenterology Author Type: [...] August 24, 2019 TIME: 2:10 PM NUMBER: [phone] [facility] PROGRESSon 08-24-2019 PROGRESS HNO ID: [id number] Author: Ben Peñaloza Service: Hospital Medicine Author [...] -- 08/24/19 0945 activity - mobilize patient (co,oh) 08/20/19 1615 vte pharmacologic prophylaxis contraindicated (co,mi) 08/20/19 1615 pneumatic compression stockings (co,mi) VTE Prophylaxis: VTE prophylaxis appropriate SIGNATURE: Ben Peñaloza MD PATIENT NAME: Elias Shah DATE: 08/24/2019 TIME: 3:39 PM PAGER: [phone] [facility] THERAPY NTon 08-24-2019 THERAPY NT HNO ID: [id number] Author: Chloe (Otr/L) Lb Service: Occupational Therapy Author Type: Occupational Therapist Type: Therapy (PT/OT/Speech/Resp) Filed: 08/24/2019 11:16 AM Note Text: Occupational Therapy Evaluation SERVICE DATE: 08/24/2019 SERVICE TIME: 0955 to 1023 ROOM: [place] [address] Recommended Discharge Disposition: Acute Rehab Recommended Discharge [...] Cognitive Functions and Awareness Interventions Provided: Evaluation;Self Retirement Management (26903) $ Evaluation-Moderate (15926) Billed Units: 1 unit OT Evaluation Moderate [...] valve replacement, h/o encephalopathy, anemia, HTN. Self Retirement Management (29435) Treatment Minutes: 13 1 unit Skilled Intervention(s): [...] mm St. Cristhian Trifecta pericardial prosthesis at [facility] by Dr. Rivers - Essential hypertension - [...] August 24, 2019 TIME: 10:46 AM [facility] THERAPY NT HNO ID: [id number] Author: Nohemi (Pt) Shefali Service: Physical Therapy Author Type: Physical Therapist Type: Therapy (PT/OT/Speech/Resp) Filed: 08/24/2019 4:03 PM Note Text: Physical Therapy Evaluation SERVICE DATE: 08/24/2019 SERVICE TIME: 0830 to 0855 ROOM: [place] [address] Recommended Discharge Disposition: Acute Rehab Justification For [...] and mobility-other Interventions Provided: Evaluation;Therapeuti c Activity (61100) $ Evaluation-Moderate (24273) Billed Units: 1 unit History and examination of body systems see assessment section above. This patient?s clinical presentation is evolving. The patient required a moderate complexity evaluation. Therapeutic Activity (65005) Treatment Minutes: 9 1 unit Skilled Intervention(s): [...] August 24, 2019 TIME: 4:01 PM [facility] ANES Namita 08-23-2019 ANES POST HNO ID: [id number] Author: Alli Lamb Service: Anesthesiology Author Type: [...] 2019 TIME: 12:36 PM PAGER/CONTACT #: Kati [facility] ANES PREOPon 08-23-2019 ANES PREOP HNO ID: [id number] Author: Alli Lmab Service: Anesthesiology Author Type: Physician Type: Anesthesia [...] 2 Acute Encephalopathy Coronary Artery Disease of [place] Artery of [place] Heart With Stable Angina Pectoris (Hcc) S/P [...] mm St. Cristhian Trifecta pericardial prosthesis at [facility] by Dr. 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 Rivers - Vitamin D deficiency PAST SURGICAL HISTORY Procedure Laterality Date - ATRIAL APPENDAGE LIGATION 07/04/2019 35 mm AtriCure clip at [facility] by Dr. Rivers - CABG (2) VEIN GRAFTS AND ARTERIAL GRAFT(S 07/04/2019 at [facility] by Dr. Rivers - REPAIR UMBILICAL HERNIA 12/04/2018 after bowel perforation done at [facility] Dr. Young - REPLAC AORT VALV PROSTH VALV 07/04/[address] Cristhian Trifecta pericardial prosthesis at [facility] by Dr. Rivers FAMILY HISTORY Problem Relation [...] August 23, 2019 TIME: 11:36 AM CSN: [id number] [facility] CASE MGT INIT DEVAN 2018 CASE MGT INIT DEVAN HNO ID: [id number] Author: Barbara (Rn) AGUSTO Roque Service: Care [...] Current Advance Directive: Health Care Power of Aluminum Polisher In Chart: No Foam Dispenser Attempted to Assist with AD Completion: Yes [...] Walker Has the Patient Been in a [place] [facility] Facility in the Past 30 days? Unknown SOCIAL: Living Arrangement: Home Lives With: sisterAmalia Financial Resources: Retired Primary Contact: Extended Emergency Contact Information Primary Emergency Contact: Amalia Zamora [place] Relation: Sister Supportive: Yes Other Important Patient [...] 0 I feel financially burdened by my kmi-ky-xrryvt expenses for my prescription medication: Disagree completely [...] 23, 2019 TIME: 4:20 PM PAGER/CONTACT #: [phone] [facility] OPERATIVE NOon 08-23-2019 OPERATIVE NO HNO ID: [id number] Author: Zora Peter Service: Gastroenterology Author Type: Physician Type: Operative Report Filed: 08/23/2019 12:03 PM Note Text: OPERATIVE/PROCEDURE REPORT LOG ID: [id number] Surgery/Procedure Date: 08/23/2019 Incision/Procedure Start Time: 11:43 AM Incision Close/Procedure End Time: 11:58 AM Surgeon(s)/Procedural ist(s) and Post Anesthesia Care Unit Nurse(s): Surgeon(s) and Role: * Zora Peter - [...] 23, 2019 TIME: 12:00 PM PAGER/CONTACT #: [phone] [facility] OPERATIVE NO HNO ID: [id number] Author: Zora Peter Service: Gastroenterology Author Type: Physician Type: Operative Report Filed: 08/23/2019 12:02 PM Note Text: OPERATIVE/PROCEDURE REPORT LOG ID: [id number] Surgery/Procedure Date: 08/23/2019 Incision/Procedure Start Time: 11:43 AM Incision Close/Procedure End Time: 11:58 AM Surgeon(s)/Procedural ist(s) and Post Anesthesia Care Unit Nurse(s): Surgeon(s) and Role: * Zora Peter - [...] 23, 2019 TIME: 12:00 PM PAGER/CONTACT #: [phone] [facility] PROGRESSon 08-23-2019 PROGRESS HNO ID: [id number] Author: Roger Castillo Service: Hospital Medicine Author Type: Physician Type: Progress Notes Filed: 08/23/2019 3:44 PM Note Text: DEPARTMENT OF HOSPITAL MEDICINE PROGRESS NOTE SERVICE DATE: 08/23/2019 SERVICE TIME: 3:37 PM Hospital Medicine/Primary Attending: Roger Castillo MD NIGHT AND WEEKEND COVERAGE: After 7pm please page [phone] CHIEF COMPLAINT: Shortness of breath SUBJECTIVE: Patient [...] Patient SIGNATURE: Roger Castillo MD PATIENT NAME: Eilas Shah DATE: August 23, 2019 TIME: 3:37 PM PAGER/CONTACT #: [phone] [facility] PT EDon 08-23-2019 PT ED HNO ID: [id number] Author: Nichole GusmanRnSachin Boo RN Service: Nursing [...] Signed By: Nichole Boo RN In Department: [facility] PT ED HNO ID: [id number] Author: Ina Ryan RN Service: Nursing Author [...] Ina Rompf, RN In Department: [place] ENDO [facility] ANES Namita 08-22-2019 ANES POST HNO ID: [id number] Author: Marlon Womack Service: Anesthesiology Author Type: [...] 22, 2019 TIME: 4:49 PM PAGER/CONTACT #: [facility] ANES PREOPon 08-22-2019 ANES PREOP HNO ID: [id number] Author: Marlon Womack Service: Anesthesiology Author Type: [...] 2 Acute Encephalopathy Coronary Artery Disease of [place] Artery of [place] Heart With Stable Angina Pectoris (Hcc) S/P [...] mm St. Cristhian Trifecta pericardial prosthesis at [facility] by Dr. 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 Rivers - Vitamin D deficiency PAST SURGICAL HISTORY Procedure Laterality Date - ATRIAL APPENDAGE LIGATION 07/04/2019 35 mm AtriCure clip at [facility] by Dr. Rivers - CABG (2) VEIN GRAFTS AND ARTERIAL GRAFT(S 07/04/2019 at [facility] by Dr. Rivers - REPAIR UMBILICAL HERNIA 12/04/2018 after bowel perforation done at [facility] Dr. Young - REPLAC AORT VALV PROSTH VALV 07/04/[address] Cristhian Trifecta pericardial prosthesis at [facility] by Dr. Rivers FAMILY HISTORY Problem Relation [...] cap(s) (FLOMAX) 0.4 mg ORAL DAILY [place] 0.4 mg at 08/21/19 0953 - [MAR Hold due to Transfer] NaCl 0.9% 3-5 mL 3-5 mL INTRAVENOUS q 12 H [place] 3 mL at 08/22/19 0840 - [MAR Hold due to Transfer] NaCl 0.9% 2-10 mL 2-10 mL INTRAVENOUS q 12 H [place] 10 mL at 08/22/19 0900 - [MAR Hold due to Transfer] pantoprazole 40 mg injection (PROTONIX) 40 mg INTRAVENOUS q 12 H [place] 40 mg at 08/22/19 0843 Followed by [...] August 22, 2019 TIME: 12:40 PM CSN: [id number] [facility] CASE MANAGEMon 08-22-2019 CASE MANAGEM HNO ID: [id number] Author: Barbara Roque RN Service: Care Management [...] 22, 2019 TIME: 2:29 PM PAGER/CONTACT #: [phone] [facility] CASE MANAGEM HNO ID: [id number] Author: Serene Amaya Service: Care Management Author Type: ? Type: Care Mgt Progress Note Filed: 08/22/2019 11:08 AM Note Text: CARE MANAGEMENT PROGRESS NOTE SERVICE DATE: 08/22/2019 SERVICE TIME: 1015 LOS: 2 days IM letter given to patient on [id number]. SIGNATURE: Serene Amaya PATIENT NAME: Elias Shah DATE: August 22, 2019 TIME: 11:07 AM PAGER/CONTACT #: [phone] [facility] NURSING PROGon 08-22-2019 NURSING PROG HNO ID: [id number] Author: Rica Shaikh) AGUSTO Garcia Service: ? Author Type: Registered Nurse Type: Nursing Progress Note Filed: 08/22/2019 12:42 AM Note Text: Nursing Progress Note Patient Name: Elias Shah Patient Location: [place] [address] [address]- Daily Note: 2352: Sound text paged, BP 170/62 and HR 50, pt not symptomatic. 2354: Dr. Rubi called back ordered 50mg PO Hydralazine. Will continue to monitor. This note was completed by: Rica Garcia RN [facility] NUTRITIONon 08-22-2019 NUTRITION HNO ID: [id number] Author: Sydnee Fisher RD (Ld) Service: Nutrition [...] 2 Acute Encephalopathy Coronary Artery Disease of [place] Artery of [place] Heart With Stable Angina Pectoris (Hcc) S/P [...] mm St. Cristhian Trifecta pericardial prosthesis at [facility] by Dr. Rivers - S/P CABG x 2 07/04/2019 at [facility] by Dr. Rivers - Vitamin D deficiency PAST SURGICAL HISTORY Procedure Laterality Date - ATRIAL APPENDAGE LIGATION 07/04/2019 35 mm AtriCure clip at [facility] by Dr. Rivers - CABG (2) VEIN GRAFTS AND ARTERIAL GRAFT(S 07/04/2019 at [facility] by Dr. Rivers - REPAIR UMBILICAL HERNIA 12/04/2018 after bowel perforation done at [facility] Dr. Young - REPLAC AORT VALV PROSTH VALV 07/04/[address] Cristhian Trifecta pericardial prosthesis at [facility] by Dr. Rivers Social History Socioeconomic History [...] file Gets together: Not on file Attends christianity service: Not on file Active member of [...] oz) 04/13/19 : 88.9 kg (196 lb) [place] Body Weight: 80.9kg Resting Metabolic Rate: 1650 Estimated kilocalorie needs: 8548-5709 kilocalories determined by 25-30 kcal/kg Estimated protein needs: 97-105 grams determined by 1.2-1.3 g/kg [place] weight Estimated fluid needs: 1897-7848 milliliters based on 1 mL per kcal [...] 0659 08/22/19 0700 - 08/23/19 0659 Shift 1534-5709 7087-3676 9797-6984 24 Hour Total 8440-2330 0869-2040 3532-3960 24 Hour Total INTAKE PO 813 243 7446 PO 759 487 7569 Shift Total 232 336 4728 OUTPUT Urine 200 1545 1745 Void (ml) [...] August 22, 2019 TIME: 12:02 PM PAGER: [phone] [facility] OPERATIVE NOon 08-22-2019 OPERATIVE NO HNO ID: [id number] Author: Zora Peter Service: Gastroenterology Author Type: Physician Type: Operative Report Filed: 08/22/2019 1:40 PM Note Text: OPERATIVE/PROCEDURE REPORT LOG ID: [id number] Surgery/Procedure Date: 08/22/2019 Incision/Procedure Start Time: 1:29 PM Incision Close/Procedure End Time: 1:33 PM Surgeon(s)/Procedural ist(s) and Post Anesthesia Care Unit Nurse(s): Surgeon(s) and Role: * Zora Peter - [...] 2019 TIME: 1:36 PM PAGER/CONTACT #: [facility] PROGRESSon 08-22-2019 PROGRESS HNO ID: [id number] Author: Roger Castillo Service: Hospital Medicine Author Type: Physician Type: Progress Notes Filed: 08/22/2019 2:45 PM Note Text: DEPARTMENT OF HOSPITAL MEDICINE PROGRESS NOTE SERVICE DATE: 08/22/2019 SERVICE TIME: 8:34 AM Hospital Medicine/Primary Attending: Roger Castillo MD NIGHT AND WEEKEND COVERAGE: After 7pm please page [phone] CHIEF COMPLAINT: UGIB SUBJECTIVE: Patient has had [...] 22, 2019 TIME: 8:34 AM PAGER/CONTACT #: [phone] [facility] PT EDon 08-22-2019 PT ED HNO ID: [id number] Author: Adriane GusmanRn) AGUSTO Avelar Service: ? [...] follow-up Electronically signed by: Adriane Avelar RN [facility] PT ED HNO ID: [id number] Author: Sherrie GusmanRnSachin Bradshaw RN Service: Nursing [...] Electronically Signed By: Sherrie Bradshaw RN [facility] CONSULTon 08-21-2019 CONSULT HNO ID: [id number] Author: Niesha Musa Service: Gastroenterology Author Type: Physician Type: Consults Filed: 08/21/2019 12:31 PM Note Text: CONSULT: GASTRENTEROLOGY SERVICE SERVICE DATE: 08/21/2019 SERVICE TIME: 12:18 PM REASON FOR CONSULT: GI bleeding REQUESTING PHYSICIAN: PRIMARY CARE PHYSICIAN: Mal Main MD Subjective Mr. hSah is a 79 year old male who [...] mm St. Cristhian Trifecta pericardial prosthesis at [facility] by Dr. Rivers - S/P CABG x 2 07/04/2019 at [facility] by Dr. Rivers - Vitamin D deficiency PAST SURGICAL HISTORY Procedure Laterality Date - ATRIAL APPENDAGE LIGATION 07/04/2019 35 mm AtriCure clip at [facility] by Dr. Rivers - CABG (2) VEIN GRAFTS AND ARTERIAL GRAFT(S 07/04/2019 at [facility] by Dr. Rivers - REPAIR UMBILICAL HERNIA 12/04/2018 after bowel perforation done at [facility] Dr. Young - REPLAC AORT VALV PROSTH VALV 07/04/[address] Cristhian Trifecta pericardial prosthesis at [facility] by Dr. Rivers FAMILY HISTORY Problem Relation [...] SIGNATURE: Niesha Musa MD PATIENT NAME: Elias hSah DATE: August 21, 2019 TIME: 12:18 PM PAGER: [phone] [facility] PROGRESSon 08-21-2019 PROGRESS HNO ID: [id number] Author: Roger Castillo Service: Hospital Medicine Author Type: Physician Type: Progress Notes Filed: 08/21/2019 9:06 AM Note Text: DEPARTMENT OF HOSPITAL MEDICINE PROGRESS NOTE SERVICE DATE: 08/21/2019 SERVICE TIME: 9:00 AM Hospital Medicine/Primary Attending: Roger Castillo MD NIGHT AND WEEKEND COVERAGE: After 7pm please page [phone] CHIEF COMPLAINT: Upper back pain SUBJECTIVE: Patient [...] 21, 2019 TIME: 9:00 AM PAGER/CONTACT #: [phone] [facility] HISTORY PHYSICALon HISTORY PHYSICAL HNO ID: [id number] Author: Dunia Crawford Service: Hospital Medicine Author Type: Physician Type: HANDP Filed: 08/20/2019 8:42 PM Note Text: DEPARTMENT OF HOSPITAL MEDICINE HISTORY AND PHYSICAL EXAM SERVICE DATE: 08/20/2019 SERVICE TIME: 3:00 PM Primary Care Physician: Mal Main MD NIGHT AND WEEKEND COVERAGE: After 7pm, please call cross cover pager #[phone] Subjective CHIEF COMPLAINT: Weakness, BARDALES, melena HPI: [...] mm St. Cristhian Trifecta pericardial prosthesis at [facility] by Dr. Rivers - S/P CABG x 2 07/04/2019 at [facility] by Dr. Rivers - Vitamin D deficiency PAST SURGICAL HISTORY Procedure Laterality Date - ATRIAL APPENDAGE LIGATION 07/04/2019 35 mm AtriCure clip at [facility] by Dr. Rivers - CABG (2) VEIN GRAFTS AND ARTERIAL GRAFT(S 07/04/2019 at [facility] by Dr. Rivers - REPAIR UMBILICAL HERNIA 12/04/2018 after bowel perforation done at [facility] Dr. Young - REPLAC AORT VALV PROSTH VALV 07/04/[address] Cristhian Trifecta pericardial prosthesis at [facility] by Dr. 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 He was diagnosed with anemia and given blood transfusion. Pt had EGD and will need colonoscopy. CAGB x 2 done 07/04/19. Amalia just wanted this to be noted and sent to the care team here. AMA Carson APRN.DETECTIVE PRECINCT, DETECTIVE PRECINCT 08/22/2019 3:40 PM Signed Noted. Thank you. Progress Notes (): Dunia Crawford DO 08/20/2019 8:42 PM Signed DEPARTMENT OF HOSPITAL MEDICINE HISTORY AND PHYSICAL EXAM SERVICE DATE: 08/20/2019 SERVICE TIME: 3:00 PM Primary Care Physician: Mal Main MD NIGHT AND WEEKEND COVERAGE: After 7pm, please call cross cover pager #[phone] Subjective CHIEF COMPLAINT: Weakness, BARDALES, melena HPI: [...] mm St. Cristhian Trifecta pericardial prosthesis at [facility] by Dr. Rivers - S/P CABG x 2 07/04/2019 at [facility] by Dr. Rivers - Vitamin D deficiency PAST SURGICAL HISTORY Procedure Laterality Date - ATRIAL APPENDAGE LIGATION 07/04/2019 35 mm AtriCure clip at [facility] by Dr. Rivers - CABG (2) VEIN GRAFTS AND ARTERIAL GRAFT(S 07/04/2019 at [facility] by Dr. Rivers - REPAIR UMBILICAL HERNIA 12/04/2018 after bowel perforation done at [facility] Dr. Young - REPLAC AORT VALV PROSTH VALV 07/04/[address] Cristhian Trifecta pericardial prosthesis at [facility] by Dr. Rivers FAMILY HISTORY Problem Relation [...] Prophylaxis: Contraindicated active bleeding Disposition: Home with [facility] Plan of care discussed with: Patient, [...] AND WEEKEND COVERAGE: After 7pm please page [phone] CHIEF COMPLAINT: Upper back pain SUBJECTIVE: Patient [...] mm St. Cristhian Trifecta pericardial prosthesis at [facility] by Dr. Rivers - S/P CABG x 2 07/04/2019 at [facility] by Dr. Rivers - Vitamin D deficiency PAST SURGICAL HISTORY Procedure Laterality Date - ATRIAL APPENDAGE LIGATION 07/04/2019 35 mm AtriCure clip at [facility] by Dr. Rivers - CABG (2) VEIN GRAFTS AND ARTERIAL GRAFT(S 07/04/2019 at [facility] by Dr. Rivers - REPAIR UMBILICAL HERNIA 12/04/2018 after bowel perforation done at [facility] Dr. Young - REPLAC AORT VALV PROSTH VALV 07/04/[address] Cristhian Trifecta pericardial prosthesis at [facility] by Dr. Rivers FAMILY HISTORY Problem Relation [...] August 21, 2019 TIME: 12:18 PM PAGER: [phone] Rica Garcia RN, RN 08/22/2019 12:42 AM Signed Nursing Progress Note Patient Name: Elias Shah Patient Location: [id number]/[place] [address]123-01 Daily Note: 2352: Sound text paged, [...] AND WEEKEND COVERAGE: After 7pm please page [phone] CHIEF COMPLAINT: UGIB SUBJECTIVE: Patient has had [...] days IM letter given to patient on [id number]. SIGNATURE: Serene Elijah Amaya PATIENT NAME: Elias Shah DATE: August 22, 2019 TIME: 11:07 AM PAGER/CONTACT #: [phone] WILLIAM Belcher, RD 08/22/2019 12:20 PM Signed [...] 2 Acute Encephalopathy Coronary Artery Disease of [place] Artery of [place] Heart With Stable Angina Pectoris (Hcc) S/P [...] mm St. Cristhian Trifecta pericardial prosthesis at [facility] by Dr. Rivers - S/P CABG x 2 07/04/2019 at [facility] by Dr. Rivers - Vitamin D deficiency PAST SURGICAL HISTORY Procedure Laterality Date - ATRIAL APPENDAGE LIGATION 07/04/2019 35 mm AtriCure clip at [facility] by Dr. Rivers - CABG (2) VEIN GRAFTS AND ARTERIAL GRAFT(S 07/04/2019 at [facility] by Dr. Rivers - REPAIR UMBILICAL HERNIA 12/04/2018 after bowel perforation done at [facility] Dr. Young - REPLAC AORT VALV PROSTH VALV 07/04/[address] Cristhian Trifecta pericardial prosthesis at [facility] by Dr. Rivers Social History Socioeconomic History [...] file Gets together: Not on file Attends christianity service: Not on file Active member of [...] oz) 04/13/19 : 88.9 kg (196 lb) [place] Body Weight: 80.9kg Resting Metabolic Rate: 1650 Estimated kilocalorie needs: 4541-1615 kilocalories determined by 25-30 kcal/kg Estimated protein needs: 97-105 grams determined by 1.2-1.3 g/kg [place] weight Estimated fluid needs: 3879-8707 milliliters based on 1 mL per kcal [...] 0659 08/22/19 07 - 08/23/19 0659 Shift 4272-5096 4406-1512 0686-9215 24 Hour Total 7989-7589 2816-3043 6923-7531 24 Hour Total INTAKE PO 612 709 3609 PO 322 510 1363 Shift Total 250 915 9188 OUTPUT Urine 200 1545 1745 Void (ml) [...] Type: Initial Assess/15 min 4 units SIGNATURE: WILLAIM Belcher PATIENT NAME: Elias Shah DATE: August 22, 2019 TIME: 12:02 PM PAGER: [phone] Marlon Womack MD 08/22/2019 12:43 PM Signed [...] 2 Acute Encephalopathy Coronary Artery Disease of [place] Artery of [place] Heart With Stable Angina Pectoris (Hcc) S/P [...] mm St. Cristhian Trifecta pericardial prosthesis at [facility] by Dr. 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 Rivers - Vitamin D deficiency PAST SURGICAL HISTORY Procedure Laterality Date - ATRIAL APPENDAGE LIGATION 07/04/2019 35 mm AtriCure clip at [facility] by Dr. Rivers - CABG (2) VEIN GRAFTS AND ARTERIAL GRAFT(S 07/04/2019 at [facility] by Dr. Rivers - REPAIR UMBILICAL HERNIA 12/04/2018 after bowel perforation done at [facility] Dr. Young - REPLAC AORT VALV PROSTH VALV 07/04/[address] Cristhian Trifecta pericardial prosthesis at [facility] by Dr. Rivers FAMILY HISTORY Problem Relation [...] tab(s) (LOPRESSOR) 25 mg ORAL BID [place] 25 mg at 08/21/192003 - [MAR Hold due to Transfer] tamsulosin ER 0.4 mg cap(s) (FLOMAX) 0.4 mg ORAL DAILY [place] 0.4 mg at 08/21/19 0953 - [MAR Hold due to Transfer] NaCl 0.9% 3-5 mL 3-5 mL INTRAVENOUS q 12 H [place] 3 mL at 08/22/19 0840 - [MAR Hold due to Transfer] NaCl 0.9% 2-10 mL 2-10 mL INTRAVENOUS q 12 H [place] 10 mL at 08/22/19 0900 - [MAR Hold due to Transfer] pantoprazole 40 mg injection (PROTONIX) 40 mg INTRAVENOUS q 12 H [place] 40 mg at 08/22/19 0843 Followed by [...] August 22, 2019 TIME: 12:40 PM CSN: [id number] Sherrie Bradshaw RN, RN 08/22/2019 1:19 PM [...] 1:40 PM Signed OPERATIVE/PROCEDURE REPORT LOG ID: [id number] Surgery/Procedure Date: 08/22/2019 Incision/Procedure Start Time: 1:29 PM Incision Close/Procedure End Time: 1:33 PM Surgeon(s)/Procedural ist(s) and Post Anesthesia Care Unit Nurse(s): Surgeon(s) and Role: * Zora Peter - [...] 22, 2019 TIME: 2:29 PM PAGER/CONTACT #: [phone] Adriane Avelar RN, RN 08/22/2019 2:48 PM [...] Signed By: Ina Ryan RN In Department: [facility] CNOVmary grace 08-12-2019 CNOV Office Visit (AGVASACC) ELIAS SHAH ([id number]) 1940 M Date Time Provider Department 08/12/19 [...] anemia, hematuria, acute encephalopathy. He was discharged [facility] on 07/13/2019. while recovering in acute [...] Dr Ann 08/18 Cardiac Rehab: TBD at [facility] Subjective: Current Outpatient Medications: metoprolol tartrate, [...] RELIEF) 50 mcg/actuation nasal spray Use 1 [place] in each nostril once daily. Cholecalciferol, Vitamin [...] mm St. Cristhian Trifecta pericardial prosthesis at [facility] by Dr. Rivers - S/P CABG x 2 07/04/2019 at [facility] by Dr. Rivers - Vitamin D deficiency PAST SURGICAL HISTORY Procedure Laterality Date - ATRIAL APPENDAGE LIGATION 07/04/2019 35 mm AtriCure clip at [facility] by Dr. Rivers - CABG (2) VEIN GRAFTS AND ARTERIAL GRAFT(S 07/04/2019 at [facility] by Dr. Rivers - REPAIR UMBILICAL HERNIA 12/04/2018 after bowel perforation done at [facility] Dr. Young - REPLAC AORT VALV PROSTH VALV 07/04/[address] Cristhian Trifecta pericardial prosthesis at [facility] by Dr. Rivers FAMILY HISTORY Problem Relation [...] mg BID -Stop amiodarone -Will defer to top frame maker Dr. Ann for further management 4. MAURO (acute kidney injury) (HCC) - ICD9: 584.9, ICD10: N17.9 -SCR 08/04/19 at [place] 1.20 (1.13-1.18 preop) -Stable 5. Debility - [...] on. he should follow up with his top frame maker and PCP as scheduled, and should follow-up [...] help with this. - Please see your top frame maker regularly. They will take over medication management. [...] the morning Miralax for constipation Others all occs-dvk-frzvjdz Take if you think you need them Miralax for constipation Ferrous polysaccharide - anemia -STOP Robitussin DM syrup -cough Vitamin D - Pro biotic flonase Thank you for coming to see me today!! 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 - Please see your top frame maker regularly. They will take over medication management. [...] the morning Miralax for constipation Others all stcs-lwe-syfesvn Take if you think you need them Miralax for constipation Ferrous polysaccharide - anemia -STOP Robitussin DM syrup -cough Vitamin D - Pro biotic flonase Thank you for coming to see me today!! Higinio Bacon, GEODETIC ENGINEER.DETECTIVE PRECINCT Prescriptions ordered this encounter Disp Refills Start [...] Med Route: EACH NOSTRIL Sig: Use 1 [place] in each nostril once daily. Disc: Course [...] Status:Closed by HIGINIO BACON CNP on 08/12/19 [facility] PROGRESSon 08-12-2019 PROGRESS HNO ID: [id number] Author: Higinio Medina) KEE Bacon Service: ? [...] Dr Ann 08/18 Cardiac Rehab: TBD at [facility] Subjective: Current Outpatient Medications: metoprolol tartrate, [...] RELIEF) 50 mcg/actuation nasal spray Use 1 [place] in each nostril once daily. Cholecalciferol, Vitamin [...] mm St. Cristhian Trifecta pericardial prosthesis at [facility] by Dr. Rivers - S/P CABG x 2 07/04/2019 at [facility] by Dr. Rivers - Vitamin D deficiency PAST SURGICAL HISTORY Procedure Laterality Date - ATRIAL APPENDAGE LIGATION 07/04/2019 35 mm AtriCure clip at [facility] by Dr. Rivers - CABG (2) VEIN GRAFTS AND ARTERIAL GRAFT(S 07/04/2019 at [facility] by Dr. Rivers - REPAIR UMBILICAL HERNIA 12/04/2018 after bowel perforation done at [facility] Dr. Young - REPLAC AORT VALV PROSTH VALV 07/04/[address] Cristhian Trifecta pericardial prosthesis at [facility] by Dr. Rivers FAMILY HISTORY Problem Relation [...] mg BID -Stop amiodarone -Will defer to top frame maker Dr. Ann for further management 4. MAURO (acute kidney injury) (HCC) - ICD9: 584.9, ICD10: N17.9 -SCR 08/04/19 at [place] 1.20 (1.13-1.18 preop) -Stable 5. Debility - [...] on. he should follow up with his top frame maker and PCP as scheduled, and should follow-up with us in 1 month with CXR before. Thanks. Electronically signed by Higinio Bacon APRN.CNP on August 12, 2019, 1:36 PM [facility] CNOVon 07-28-2019 CNOV Office Visit (AGVASACC) LEONIDELIAS GABRIEL ([id number]) 1940 M Date Time Provider Department 07/28/19 3:00 PM HIGINIO BACON (KEE) [facility] During your visit today, we recorded [...] RELIEF) 50 mcg/actuation nasal spray Use 1 [place] in each nostril once daily. Cholecalciferol, Vitamin [...] mm St. Cristhian Trifecta pericardial prosthesis at [facility] by Dr. Rivers - S/P CABG x 2 07/04/2019 at [facility] by Dr. Rivers - Vitamin D deficiency PAST SURGICAL HISTORY Procedure Laterality Date - ATRIAL APPENDAGE LIGATION 07/04/2019 35 mm AtriCure clip at [facility] by Dr. Rivers - CABG (2) VEIN GRAFTS AND ARTERIAL GRAFT(S 07/04/2019 at [facility] by Dr. Rivers - REPAIR UMBILICAL HERNIA 12/04/2018 after bowel perforation done at [facility] Dr. Young - REPLAC AORT VALV PROSTH VALV 07/04/[address] Cristhian Trifecta pericardial prosthesis at [facility] by Dr. Rivers FAMILY HISTORY Problem Relation [...] (patient is receiving only 81 mg at [facility]), atorvastatin 40 mg daily, increase metoprolol to 50 mg 3 times a day - CARDIAC REHAB II OUTPT ([place], [place]) -4-6 weeks once recovered from surgery and f/u with Dr Ann - XR CHEST 2V FRONTAL/LAT -for next visit scheduled in 2 weeks 2. S/P CABG x 2 - ICD9: V45.81, ICD10: Z95.1 -As above - CARDIAC REHAB II OUTPT ([place], [place]) - XR CHEST 2V FRONTAL/LAT 3. [...] ICD9: 799.3, ICD10: R53.81 -Increase ambulation at [facility] -Patient to ambulate with walker independently to prepare for home-going scheduled 08/05/2019 7. Pneumonia due to organism - ICD9: 486, ICD10: J18.9 -On vancomycin and cefepime for presumed pneumonia -Request x-ray image from 07/27/2019 from [facility] -Patient with normal O2 saturation at rest and post ambulatory. -Wean O2 prior to discharge. Higinio Bacon, GEODETIC ENGINEER.DETECTIVE PRECINCT In summary, Elias Shah is doing better overall after his combined CABG aVR surgery, with no major complaints. he should follow-up in this office in 2 weeks with Chest X-ray. Thanks. Electronically signed by Higinio Bacon APRN.CNP on July 28, 2019, 12:54 PM Higinio Bacon APRN.CNP, CNP 07/28/2019 4:42 PM Addendum -Please follow-up with your primary care physician and your top frame maker in 4-6 weeks -Please return to cardiac surgery in 3-4 weeks with a chest x-ray done before the appointment -Restriction remain: No lifting more than 10 lbs and No driving. -Cardiac rehab has been consulted. You will be able to begin cardiac rehab after your next visit with us. [facility]: . Recommendations: 1. 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 -Cardiac rehab has been consulted. You will be able to begin cardiac rehab after your next visit with us. [facility]: . Recommendations: 1. Increase ASA to 162 [...] coming to see me today! Higinio Bacon APRN.DETECTIVE PRECINCT Prescriptions ordered this encounter Disp Refills Start [...] Status:Closed by HIGINIO BACON CNP on 07/29/19 [facility] PROGRESSon 07-28-2019 PROGRESS HNO ID: [id number] Author: Higinio (Kee) KEE Bacon Service: ? [...] anemia, hematuria, acute encephalopathy. He was discharged [facility] on 07/13/2019. In the intervening week [...] RELIEF) 50 mcg/actuation nasal spray Use 1 [place] in each nostril once daily. Cholecalciferol, Vitamin [...] mm [facility] Trifecta pericardial prosthesis at [facility] by Dr. Rivers - S/P CABG x 2 07/04/2019 at [facility] by Dr. Rivers - Vitamin D deficiency PAST SURGICAL HISTORY Procedure Laterality Date - ATRIAL APPENDAGE LIGATION 07/04/2019 35 mm AtriCure clip at [facility] by Dr. Rivers - CABG (2) VEIN GRAFTS AND ARTERIAL GRAFT(S 07/04/2019 at [facility] by Dr. Rivers - REPAIR UMBILICAL HERNIA 12/04/2018 after bowel perforation done at [facility] Dr. Young - REPLAC AORT VALV PROSTH VALV 07/04/[address] [place]ian Trifecta pericardial prosthesis at [facility] by Dr. Rivers FAMILY HISTORY Problem Relation [...] (patient is receiving only 81 mg at [facility]), atorvastatin 40 mg daily, increase metoprolol to 50 mg 3 times a day - CARDIAC REHAB II OUTPT ([place], [place]) -4-6 weeks once recovered from surgery and f/u with Dr Ann - XR CHEST 2V FRONTAL/LAT -for next visit scheduled in 2 weeks 2. S/P CABG x 2 - ICD9: V45.81, ICD10: Z95.1 -As above - CARDIAC REHAB II OUTPT ([place], [place]) - XR CHEST 2V FRONTAL/LAT 3. [...] ICD9: 799.3, ICD10: R53.81 -Increase ambulation at [facility] -Patient to ambulate with walker independently to prepare for home-going scheduled 08/05/2019 7. Pneumonia due to organism - ICD9: 486, ICD10: J18.9 -On vancomycin and cefepime for presumed pneumonia -Request x-ray image from 07/27/2019 from [facility] -Patient with normal O2 saturation at rest and post ambulatory. -Wean O2 prior to discharge. Higinio Bacon APRN.KEE In summary, Elias Shah is doing better overall after his combined CABG aVR surgery, with no major complaints. he should follow-up in this office in 2 weeks with Chest X-ray. Thanks. Electronically signed by Higinio Bacon APRN.CNP on July 28, 2019, 12:54 PM [facility] CNPJohanna 07-21-2019 KEEN Telephone ([facility]) ELIAS SHAH ([id number]) 1940 M Date Time Provider Department 07/21/19 WAYNE RIVERS During your visit today, we recorded the following information about you: Brook Sweeney LPN 07/21/2019 2:45 PM Signed Janee a nurse at [facility], transitional care unit calls with concern of [...] new orders please call her directly # [phone]. If desired an EKG can be done at that facility. AMA Carson APRN.KEE OTERO 07/21/2019 4:17 PM Signed Return phone call to Janee at [facility] She reports that Mr. 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 They were updated on hand picker time. Orders will be faxed as soon as MAHENDRA finalizes. left for pts sister Amalia at pt request. SIGNATURE: Greg Naqvi RN PATIENT NAME: Elias Shah DATE: July 13, 2019 TIME: 1:52 PM PAGER/CONTACT #: [phone] [facility] CASE MANAGEM HNO ID: [id number] Author: Greg (Rn) AGUSTO Naqvi Service: Care Management Author Type: Registered Nurse Type: Care Mgt Progress Note Filed: 07/13/2019 1:43 PM Note Text: CARE MANAGEMENT PROGRESS NOTE SERVICE DATE: 07/13/2019 SERVICE TIME: 1324 LOS: 9 days Multiple calls attempted to [facility] to see if they can accept pt. No answer was given in [employer] yesterday and [employer] is down today. Finally received callback from Nancy at [facility], she still feels pt is more appropriate for skilled and not acute rehab, states that the pt is 79 and he had a CABG. I did explain that the pt has been ambulating in the unit with minimal assist multiple times per day and PT/OT rec acute rehab. Facility requesting latest PT/OT to be faxed. Evals from 07/11 were faxed to [phone]. Await response. Pt is agreeable to go skilled if pt will not take for acute rehab. Anticipate dc later today. Ambulette set up fpr 4 pm. Still waiting on final acceptance from [facility]. SIGNATURE: Greg Naqvi RN PATIENT NAME: Elias Shah DATE: July 13, 2019 TIME: 1:24 PM PAGER/CONTACT #: [phone] [facility] 07-13-2019 [facility] Telephone ([facility]) ELIAS SHAH ([id number]) 1940 M Date Time Provider Department 07/13/19 MARLON MILLAN) [facility] During your visit today, we recorded the following information about you: Marlon Millan PA-C 07/13/2019 4:09 PM Signed Please schedule follow up appointment in 1 week s/p AVR/ CABG/ left atrial appendage clip. Thanks! 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 [6045] Prescriptions as of 07/13/2019 Sig: ACETAMINOPHEN 325 [...] FLONASE ALLERGY RELIEF 50 MCG* Use 1 [place] in each nostril o* CHOLECALCIFEROL (VITAMIN D3) * Take 5,000 Units by mouth onc* Problem List As Of Date 07/13/2019 Noted Resolved Abnormal electrocardiogram (ECG) (EKG) [R94.31] INVALID FOR* Anemia, unspecified [D64.9] INVALID FOR* Aortic valve stenosis [I35.0] INVALID FOR* Atrial fibrillation with rapid ventricular resp*INVALID FOR* MAURO (acute kidney injury) ([facility]) [N17.9] INVALID FOR* Acute metabolic encephalopathy [G93.41] [...] [I35.0] INVALID FOR* Malnutrition of moderate degree ([facility]) [E44.0] INVALID FOR* S/P AVR (aortic valve replacement) [Z95.2] INVALID FOR* S/P CABG x 2 [Z95.1] INVALID FOR* Acute encephalopathy [G93.40] INVALID FOR* 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 Patient is now s/p AVR. 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 SIGNATURE: Salomon Roque APRN.PAINT BOOTH OPERATOR PATIENT NAME: Elias Shah DATE: July 13, 2019 TIME: 10:47 AM PAGER/CONTACT #: [phone] [facility] PLAN OF CAREon 07-13-2019 PLAN OF CARE HNO ID: [id number] Author: Fabi De La Cruz (Supervisor Putty And Caluking) Service: ? Author Type: ? Type: Plan of Care Filed: 07/13/2019 3:34 PM Note Text: [employer]OMEN[employer] BEDSIDE DELIVERY SURVEY 1. Patient to use [facility] Bedside Delivery - N/A Insurance Information as follows: 2. Insurance card on file - N/A 3. Credit card for payment - N/A Patient DC to SNF/acute rehab/inpatient facility, therefore not eligible for pharmacy bedside delivery service. Fabi De La Cruz (Theatro) [phone] [facility] PROGRESSon 07-13-2019 PROGRESS HNO ID: [id number] Author: Ronn Kincaid Service: Pulmonary Disease Author [...] OK with CVICU. SIGNATURE: Ronn Kincaid MD [facility] DATE of SERVICE: July 13, 2019 TIME of SERVICE: 9:20 AM [facility] PROGRESS HNO ID: [id number] Author: Jim Castro DO Service: Cardiac Surgery [...] 2019 TIME: 6:16 AM PAGER/CONTACT #: [phone] [facility] CASE MANAGEMon 07-12-2019 CASE MANAGEM HNO ID: [id number] Author: Greg (Rn) AGUSTO Naqvi Service: Care Management Author Type: Registered Nurse Type: Care Mgt Progress Note Filed: 07/12/2019 11:56 AM Note Text: CARE MANAGEMENT PROGRESS NOTE SERVICE DATE: 07/12/2019 SERVICE TIME: 1152 LOS: 8 days Received message from staff at [facility] stating they feel pt is more [...] Pt prefers acute rehab. Message sent to [facility], await response. SIGNATURE: Greg Naqvi RN PATIENT NAME: Elias Shah DATE: July 12, 2019 TIME: 11:52 AM PAGER/CONTACT #: [phone] [facility] CONSULTon 07-12-2019 CONSULT HNO ID: [id number] Author: Alvin Jose Service: Electrophysiology Author Type: [...] HERNIA 12/04/2018 after bowel perforation done at [facility] Dr. Young FAMILY HISTORY Problem Relation Age [...] Unknown time Yes Yes Sig: Use 1 [place] in each nostril once daily. 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 * Orders reviewed and I agree with the cardiac orders. Additional orders include . SIGNATURE: Alvin Jose DO PATIENT NAME: Elias Shah DATE: July 12, 2019 TIME: 11:14 AM PAGER/CONTACT #: [phone] [facility] ECG COMPLETEon 07-12-2019 ECG COMPLETE NAME : ELIAS SHAH PID : [id number] : 1940 Gender : Male Race : ORD : [id number] Procedure Date : Jul 12 2019 09:22:34 [...] LONGER PRESENT Confirmed by MD ESCALANTE VINAYAK ([id number]) on 07/12/2019 8:58:11 PM Ventricular Rate : 119 BPM Atrial Rate : 119 BPM QRS Duration : 150 ms Q-T Interval : 396 ms QTC Calculation(Bazett) : 557 ms R [place] : -58 degrees T [place] : 114 degrees Test Reason : Arrhythmia Location : 6 : [place] [address] Overread By : MD ESCALANTE VINAYAK Edited By : MD ESCALANTE VINAYAK Referred By : WAYNE RIVERS Acquired by : MARLON MAYER [facility] NURSING PROGon 07-12-2019 NURSING PROG HNO ID: [id number] Author: Suni (Rn) AGUSTO Maguire Service: ? [...] resulted 165/87. Will continue to monitor [facility] NURSING PROG HNO ID: [id number] Author: Suni GusmanRn) AGUSTO Maguire Service: ? Author Type: Registered Nurse Type: Nursing Progress Note Filed: 07/12/2019 11:15 AM Note Text: Dr Cruz At bedside for EP consult [facility] NURSING PROG HNO ID: [id number] Author: Suni GusmanRn) AGUSTO Maguire Service: ? [...] possible deterioration. Will continue to monitor [facility] PROGRESSon 07-12-2019 PROGRESS HNO ID: [id number] Author: Marlon Millan (Pa) Service: Cardiovascular Surgery Author Type: Physician Post Anesthesia Care Unit Nurse Type: Progress Notes Filed: 07/12/2019 5:32 PM [...] SIGNATURE: Marlon Millan PA-C PATIENT NAME: Elias hSah DATE: July 12, 2019 TIME: 2:17 PM PAGER/CONTACT #: [phone] [phone] [facility] PROGRESS HNO ID: [id number] Author: Ronn Kincaid Service: Pulmonary Disease Author [...] availability for transfer. SIGNATURE: Ronn Kincaid MD [facility] DATE of SERVICE: July 12, 2019 TIME of SERVICE: 9:36 AM [facility] PROGRESS HNO ID: [id number] Author: Jim Castro DO Service: Cardiac Surgery [...] 2019 TIME: 6:13 AM PAGER/CONTACT #: [phone] [facility] ALLIED HEALTHon 08-19-2019 ALLIED HEALTH HNO ID: [id number] Author: Mal (Performance Improvement Consultant) ASRTID Mendoza Service: Cardiac Rehab Author Type: Registered [...] Rehabilitation Brochure Signature: Mal Mendoza RRT Pager: [phone] Date: July 11, 2019 Time: 3:14 PM [facility] CASE MANAGEMon 07-11-2019 CASE MANAGEM HNO ID: [id number] Author: Imelda (Rn) AGUSTO Rizvi Service: ? [...] 11, 2019 TIME: 2:43 PM PAGER/CONTACT #: [phone] [facility] NURSING PROGon 07-11-2019 NURSING PROG HNO ID: [id number] Author: Suni GusmanRnSachin Maguire RN Service: ? [...] above 96%. Will continue to monitor [facility] NUTRITIONon 07-11-2019 NUTRITION HNO ID: [id number] Author: Mimi Smith Service: Nutrition Therapy Author [...] July 11, 2019 TIME: 12:14 PM PAGER: [phone] [facility] NUTRITION HNO ID: [id number] Author: Yasmine Sanchez RD Service: Nutrition Therapy [...] 2 Acute Encephalopathy Coronary Artery Disease of [place] Artery of [place] Heart With Stable Angina Pectoris (Hcc) PAST [...] HERNIA 12/04/2018 after bowel perforation done at [facility] Dr. Young Nutritional Intake: <75% estimated energy [...] July 11, 2019 TIME: 8:46 AM PAGER: [phone] [facility] PROGRESSon 07-11-2019 PROGRESS HNO ID: [id number] Author: Marlon Millan (Pa) Service: Cardiovascular Surgery Author Type: Physician Post Anesthesia Care Unit Nurse Type: Progress Notes Filed: 07/11/2019 2:02 PM [...] hematuria ? Diet -Heart healthy? Transfer to [facility] today Tests/Labs Ordered: 1. BMP 2. CBC SIGNATURE: Marlon Millan PA-C PATIENT NAME: Elias Shah DATE: July 11, 2019 TIME: 1:21 PM PAGER/CONTACT #: [phone] [facility] PROGRESS HNO ID: [id number] Author: Jim Castro DO Service: Cardiac Surgery [...] BBSara Sullivan. DC pacing wires. Transfer to [facility]. to consider farley removal. Placement pending. Signature: [...] home amlodipine, added metoprolol HLD - lipitor MAUOR - resoved - s.p 20mg lasix 07/10 [...] 2019 TIME: 6:17 AM PAGER/CONTACT #: [phone] [facility] THERAPY NTon 07-11-2019 THERAPY NT HNO ID: [id number] Author: Chloe (Otr/LSachin Asher Service: Occupational Therapy Author Type: Occupational Therapist Type: Therapy (PT/OT/Speech/Resp) Filed: 07/11/2019 3:37 PM Note Text: Occupational Therapy Treatment SERVICE DATE: 07/11/2019 SERVICE TIME: 1355 to 1410 ROOM: [id number] Recommended Discharge Disposition: Acute Rehab Recommended Discharge [...] Cognitive Functions and Awareness Interventions Provided: Self Retirement Management (02651) Self Retirement Management (54731) Treatment Minutes: 15 1 unit Skilled Intervention(s): [...] commands noted. Well, you're in a hospital. [facility], if you didn't remember when asked for orientation to place. Reported pain in right shoulder at 7/10. My left one hurt too right after surgery, but it's better. I guess it's how they positioned me. Home Environment Patient Lives With: Family(sister) Assistance Available: horse race timer Entry To Home: Stairs Prior Functional Level: [...] July 11, 2019 TIME: 3:21 PM [facility] THERAPY NT HNO ID: [id number] Author: Maggie Rizvi Service: Physical Therapy Author Type: Physical Therapist Type: Therapy (PT/OT/Speech/Resp) Filed: 07/11/2019 3:21 PM Note Text: Physical Therapy Treatment SERVICE DATE: 07/11/2019 SERVICE TIME: 1409 to 1420 ROOM: [place] [address] Recommended Discharge Disposition: Acute Rehab Recommended Discharge [...] therapy and has been walking the the staff development manager several times last last few days. This [...] Patient TREATMENT INTERVENTIONS: Interventions Provided: Therapeutic Activity (05867);Gait Training (20054) Therapeutic Activity (27774) Treatment Minutes: 1 0 units Skilled Intervention(s): Education with hugging the pillow to his chest and laying on his side to log roll into the bed. Required assist to lif this legs in to the bed. The patient was instructed to keep holding the pillow and roll to his back. Gait Training (32976) Treatment Minutes: 10 1 unit Skilled Intervention(s): [...] Environment Patient Lives With: Family(sister) Assistance Available: horse race timer Entry To Home: Stairs Prior Functional Level: [...] July 11, 2019 TIME: 3:15 PM [facility] THERAPY NT HNO ID: [id number] Author: Shashi (Ccc-Manager Cargo) Daquan CCC/RN HEMODIALYSIS CHARGE Service: Speech/Swallow Author Type: Speech Language Pathologist Type: Therapy (PT/OT/Speech/Resp) Filed: 07/11/2019 12:22 PM Note Text: Speech Therapy MBSS Evaluation SERVICE DATE: 07/11/2019 SERVICE TIME: 1045 to 1100 ROOM: [place] [address] Nursing Recommendations: See swallow guide posted in [...] Tested: Thin Barium Liquids;Mildly Thick Barium Liquids ([place] Thick);Puree With Barium Paste;Solid With Barium Paste [...] phase Interventions Provided: Modified Barium Swallow Study (59678) $ Modified Barium Swallow Study (84093) Billed Units: 1 unit Total Treatment Time [...] for this therapy evaluation/treatment. SIGNATURE: Shashi Butt [facility]-RN HEMODIALYSIS CHARGE PATIENT NAME: Elias Shah DATE: July 11, 2019 TIME: 12:20 PM [facility] PROGRESSon 07-10-2019 PROGRESS HNO ID: [id number] Author: Wayne Rivers Service: Cardiac Surgery Author [...] 2019 TIME: 9:55 AM PAGER/CONTACT #: [phone] [facility] PROGRESS HNO ID: [id number] Author: Christopher Cook Service: Critical Care Author [...] ? SIGNATURE: Christopher Cook MD [facility] PAGER:[phone] [facility] PROGRESS HNO ID: [id number] Author: Downtime Note Service: ? Author Type: ? Type: Progress Notes Filed: 07/10/2019 3:03 AM Note Text: Epic Scheduled Downtime: 07/10/2019 1:00:00 AM to 07/10/2019 2:53:18 AM [facility] ECG COMPLETEon 07-09-2019 ECG COMPLETE NAME : ELIAS SHAH PID : [id number] : 1940 Gender : Male Race : ORD : [id number] Procedure Date : Jul 09 2019 06:15:23 [...] ANTERIOR LEADS Confirmed by MD WILKES ANUBHAV ([id number]) on 07/09/2019 12:41:59 PM Ventricular Rate : 99 BPM Atrial Rate : 100 BPM QRS Duration : 110 ms Q-T Interval : 396 ms QTC Calculation(Bazett) : 508 ms R [place] : -45 degrees T [place] : 146 degrees Test Reason : Check QT Location : 6 : CVICU 3229 Overread By : MD WILKES ANUBHAV Edited By : MD WILKES ANUBHAV Referred By : WAYNE RIVERS Acquired by : ANGELY LYNNE [facility] PROGRESSon 07-09-2019 PROGRESS HNO ID: [id number] Author: Wayne Rivers Service: Cardiac Surgery Author [...] 2019 TIME: 12:41 PM PAGER/CONTACT #: [phone] [facility] PROGRESS HNO ID: [id number] Author: Christopher Cook Service: Critical Care Author [...] minutes. SIGNATURE: Christopher Cook MD [facility] PAGER:[phone] [facility] THERAPY NTon 07-09-2019 THERAPY NT HNO ID: [id number] Author: Daria GusmanCcc-Manager Cargo) YUKI Mccauley/LETY Service: Speech/Swallow Author Type: Speech Language Pathologist Type: Therapy (PT/OT/Speech/Resp) Filed: 07/09/2019 8:17 AM Note Text: SPEECH THERAPY MISSED VISIT SERVICE DATE: 07/09/2019 SERVICE TIME: 816 to 816 ROOM: [place] [address] Attempted MBSS Evaluation. Patient not seen due to Other: See Comment. Aware of Modified Barium Swallow Study order. Will complete as scheduled. SIGNATURE: Daria Mccauley CCC-RN HEMODIALYSIS CHARGE PATIENT NAME: Elias Shah DATE: July 09, 2019 TIME: 8:17 AM [facility] ALLIED HEALTHon 07-08-2019 ALLIED HEALTH HNO ID: [id number] Author: Marybeth (Rn) AGUSTO Park Service: ? [...] this time Signature: Marybeth Park RN Pager: [phone] Date: July 08, 2019 Time: 10:27 AM [facility] CASE MANAGEMon 07-08-2019 CASE MANAGEM HNO ID: [id number] Author: Imelda (Rn) Dmitri RN Service: ? Author Type: Registered Nurse Type: Care Mgt Progress Note Filed: 07/08/2019 2:47 PM Note Text: CARE MANAGEMENT PROGRESS NOTE SERVICE DATE: 07/08/2019 SERVICE TIME: 2:45 PM LOS: 4 days FREEDOM OF CHOICE GIVEN: Yes acute rehab The patient and/or family has been given the Provider List: Yes Provider List: Rehab Facility Preference: [facility] Rehab Needs Prior to Discharge: Accepting Facility;Discharge Transportation Met with pt and sister to discuss disch plan.. Pt and sister are in agreement for [facility] rehab. Referral created. SIGNATURE: Imelda Rizvi RN PATIENT NAME: Elias Shah DATE: July 08, 2019 TIME: 2:45 PM PAGER/CONTACT #: [phone] [facility] CASE MANAGEM HNO ID: [id number] Author: Serene Amaya Service: Care Management Author Type: ? Type: Care Mgt Progress Note Filed: 07/08/2019 9:56 AM Note Text: CARE MANAGEMENT PROGRESS NOTE SERVICE DATE: 07/08/2019 SERVICE TIME: 0845 LOS: 4 days IM letter given to patient on [id number]. SIGNATURE: Serene Amaya PATIENT NAME: Elias Shah DATE: July 08, 2019 TIME: 9:56 AM PAGER/CONTACT #: [phone] [facility] CONSULT PROGon 07-08-2019 CONSULT PROG HNO ID: [id number] Author: Tahir Riley MD Service: Neurology ICU [...] and coagulopathy w/ thrombocytopenia who presented to [facility] for CABG and AVR. Patient is [...] 08, 2019 TIME: 7:44 PM PAGER/CONTACT #: [phone] [facility] NUTRITIONon 07-08-2019 NUTRITION HNO ID: [id number] Author: Yasmine Sanchez RD Service: Nutrition Therapy [...] HERNIA 12/04/2018 after bowel perforation done at [facility] Dr. 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 05/11/19 : 88.8 kg (195 lb 12.8 oz) 04/13/19 : 88.9 kg (196 lb) [place] Body Weight: 80.9kg Resting Metabolic Rate: 1755 Estimated kilocalorie needs: 8994-7033 kilocalories determined by 25-30 kcal/kg Estimated protein needs: 97-121 grams determined by 1.2-1.5 g/kg [place] weight Estimated fluid needs: 9642-2130 milliliters based on 1 mL per kcal [...] July 08, 2019 TIME: 8:39 AM PAGER: [phone] [facility] PROGRESSon 07-08-2019 PROGRESS HNO ID: [id number] Author: Nohemi Glover Service: Cardiovascular Disease Author [...] 08, 2019 TIME: 12:57 PM PAGER/CONTACT #: [phone] [facility] PROGRESS HNO ID: [id number] Author: Marlon Dubon Jr. Service: Critical Care [...] HERNIA 12/04/2018 after bowel perforation done at [facility] Dr. Young Social History Socioeconomic History Marital [...] file Gets together: Not on file Attends christianity service: Not on file Active member of [...] July 08, 2019 TIME: 9:56 AM [facility] PROGRESS HNO ID: [id number] Author: Jim Castro DO Service: Cardiac Surgery [...] controlled. Persisting chest pain. DIET NPO per RN HEMODIALYSIS CHARGE. Objective Admission Weight: 90.7 kg (200 lb) [...] recommendations, check Vit D and B12 - RN HEMODIALYSIS CHARGE: NPO alternate means of nutrition. Continued reassessments [...] 2019 TIME: 6:14 AM PAGER/CONTACT #: [phone] [facility] THERAPY NTon 07-08-2019 THERAPY NT HNO ID: [id number] Author: Daria (Ccc-Manager Cargo) YUKI Mccauley/RN HEMODIALYSIS CHARGE Service: Speech/Swallow Author Type: Speech Language Pathologist Type: Therapy (PT/OT/Speech/Resp) Filed: 07/08/2019 3:14 PM Note Text: Speech Therapy Treatment SERVICE DATE: 07/08/2019 SERVICE TIME: 1448 to 1504 ROOM: [place] [address] Nursing Recommendations: See swallow guide posted in [...] Session -Patient alert, up in bed on RN HEMODIALYSIS CHARGE arrival, agreeable to therapy -Able to feed self with set up assist -Mastication time increased for solids -Trace to minimal oral residuals post swallow, able to clear with RN HEMODIALYSIS CHARGE facilitated liquid wash -Laryngeal movement detected upon [...] Dysphagia, oropharyngeal phase Interventions Provided: Dysphagia Therapy (35775) $ Dysphagia Therapy (92751) Billed Units: 1 unit Skilled Interventions: Provided [...] for this therapy evaluation/treatment. SIGNATURE: Daria Mccauley [facility]-RN HEMODIALYSIS CHARGE PATIENT NAME: Elias Shah DATE: July 08, 2019 TIME: 3:09 PM [facility] CONSULTon 07-07-2019 CONSULT HNO ID: [id number] Author: Saeed Philip (Pa) Service: Neurology ICU Author Type: Physician Post Anesthesia Care Unit Nurse Type: Consults Filed: 07/07/2019 9:18 PM Note [...] and coagulopathy w/ thrombocytopenia who presented to [facility] for CABG and AVR. Patient is [...] HERNIA 12/04/2018 after bowel perforation done at [facility] Dr. Young Social History Socioeconomic History Marital [...] file Gets together: Not on file Attends christianity service: Not on file Active member of [...] 07, 2019 TIME: 8:38 PM PAGER/CONTACT #: [phone] [facility] NURSING PROGon 07-07-2019 NURSING PROG HNO ID: [id number] Author: Suni (Rn) AGUSTO Maguire Service: ? [...] continue to monitor, educate and encourage [facility] NURSING PROG HNO ID: [id number] Author: Suni (Rn) AGUSTO Maguire Service: ? [...] and reactive, will continue to monitor [facility] PLAN OF CAREon 07-07-2019 PLAN OF CARE HNO ID: [id number] Author: Angely Mora (Pharmacist) Service: Pharmacy Author Type: Pharmacist Type: Plan of Care Filed: 07/11/2019 3:04 PM Note Text: MEDICATION HISTORY Patient Name:Sania Shah : 1940 Source of history:Pharmacy records: [facility] [place] (electronic and fax) and Patient: recognized most medications, could not necessarily remember the name of every single medication Medication Nonadherence Identified: No barriers noted The above information represents the best possible medication history: Yes Additional comments: Fxczh-xn-Blnkaqpii Medication List Adjustments: Medication Regimen Changes: Carvedilol [...] 07, 2019 2:31 PM Reconciliation: Yes All MAPPING TECHNICIAN medications addressed by LIP Additional comments: N/A Allergies: ALLERGIES No Known Allergies [facility] [place] Current MAPPING TECHNICIAN Medications: Prior to Admission medications as of [...] RELIEF) 50 mcg/actuation nasal spray Use 1 [place] in each nostril once daily. 07/03/2019 at [...] daily. 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 Afib RVR continued depsite [...] 07, 2019 TIME: 11:03 AM PAGER/CONTACT #: [phone] ETX [phone] Addendum #[phone] 07/07/[address] brain without contrast now [...] gtt without bolus. Marlon Millan PA-C [facility] PROGRESS HNO ID: [id number] Author: Marlon Dubon Jr. Service: Critical Care [...] HERNIA 12/04/2018 after bowel perforation done at [facility] Dr. Young Social History Socioeconomic History Marital [...] file Gets together: Not on file Attends christianity service: Not on file Active member of [...] July 07, 2019 TIME: 12:42 PM [facility] PROGRESS HNO ID: [id number] Author: Jim Castro DO Service: Cardiac Surgery [...] 2019 TIME: 6:25 AM PAGER/CONTACT #: [phone] [facility] THERAPY NTon 07-07-2019 THERAPY NT HNO ID: [id number] Author: Daria (Ccc-Manager Cargo) Garrick CCC/RN HEMODIALYSIS CHARGE Service: Speech/Swallow Author Type: Speech Language Pathologist Type: Therapy (PT/OT/Speech/Resp) Filed: 07/07/2019 2:13 PM Note Text: Speech Therapy Clinical Swallow Evaluation SERVICE DATE: 07/07/2019 SERVICE TIME: 1315 to 1330 ROOM: [place] [address] Nursing Recommendations: See swallow guide posted in [...] oropharyngeal phase Interventions Provided: Clinical Swallow Evaluation (10964) $ Clinical Swallow Evaluation (42348) Billed Units: 1 unit Total Treatment Time [...] for this therapy evaluation/treatment. SIGNATURE: Daria Mccauley CCC-RN HEMODIALYSIS CHARGE PATIENT NAME: Elias Shah DATE: July 07, 2019 TIME: 1:46 PM [facility] ECG COMPLETEon 07-06-2019 ECG COMPLETE NAME : ELIAS SHAH PID : [id number] : 1940 Gender : Male Race : ORD : [id number] Procedure Date : Jul 06 2019 16:54:40 [...] INFARCT PRESENT Confirmed by MD CHUNG, ABDELRAHMAN ([id number]) on 07/07/2019 8:49:48 AM Ventricular Rate : 126 BPM Atrial Rate : 122 BPM QRS Duration : 104 ms Q-T Interval : 340 ms QTC Calculation(Bazett) : 492 ms R [place] : -39 degrees T [place] : 142 degrees Test Reason : Arrhythmia Location : 6 : [place] [address] Overread By : MD WILKES ANUBHAV Edited By : MD WILKES ANUBHAV Referred By : WAYNE RIVERS Acquired by : EDUARDO LEONE [facility] ECG COMPLETE NAME : ELIAS SHAH PID : [id number] : 1940 Gender : Male Race : ORD : [id number] Procedure Date : Jul 06 2019 06:19:49 [...] VENTRICULAR PACEMAKER Confirmed by MD WILKES ANUBHAV ([id number]) on 07/06/2019 1:42:11 PM Ventricular Rate : 136 BPM Atrial Rate : 96 BPM QRS Duration : 100 ms Q-T Interval : 336 ms QTC Calculation(Bazett) : 505 ms R [place] : -40 degrees T [place] : 132 degrees Test Reason : Arrhythmia Location : 6 : [place] [address] Overread By : MD WILKES ANUBHAV Edited By : MD WILKES ANUBHAV Referred By : WAYNE RIVERS Acquired by : LUCY DALTON [facility] NURSING PROGon 07-06-2019 NURSING PROG HNO ID: [id number] Author: Earline (Rn) AGUSTO Celaya Service: Nursing [...] l00's and BP remains stable. See Flowsheet. [facility] PROGRESSon 07-06-2019 PROGRESS HNO ID: [id number] Author: Bhanu Miranda MD Service: Urology Author [...] PGY-2 July 06, 2019 6:12 PM Pager: [phone] [facility] PROGRESS HNO ID: [id number] Author: Marlon Millan (Pa) Service: Cardiovascular Surgery Author Type: Physician Post Anesthesia Care Unit Nurse Type: Progress Notes Filed: 07/06/2019 5:20 PM [...] 06, 2019 TIME: 5:00 PM PAGER/CONTACT #: [phone] [phone] [facility] PROGRESS HNO ID: [id number] Author: Marlon Dubon Jr. Service: Critical Care [...] HERNIA 12/04/2018 after bowel perforation done at [facility] Dr. Young Social History Socioeconomic History Marital [...] file Gets together: Not on file Attends christianity service: Not on file Active member of [...] per 24 hour Intake 9290 ml Output 20358 ml Net -765 ml MEDICATIONS Current Facility-Administered [...] July 06, 2019 TIME: 3:36 PM [facility] PROGRESS HNO ID: [id number] Author: Oc Gustafson (Pa) Service: Cardiac Surgery Author Type: Physician Post Anesthesia Care Unit Nurse Type: Progress Notes Filed: 07/06/2019 12:04 PM [...] per 24 hour Intake 9155 ml Output 37975 ml Net -960 ml TELEMETRY: sinus tachycardia [...] tube have been removed. ?Right internal jugular [place] catheter noted with tip in the pulmonary [...] July 06, 2019 TIME: 9:15 AM PAGER/CONTACT #:[phone] ETX [phone] [facility] PROGRESS HNO ID: [id number] Author: Abraham Lorenzo Service: Urology Author Type: [...] per 24 hour Intake 9155 ml Output 95961 ml Net -995 ml Physical Exam: General: [...] 7.346 (L) 7.350 - 7.450 Final Specific [place], Ur Date Value Ref Range Status 06/27/2019 [...] PGY-2 July 06, 2019 7:32 AM Pager: [phone] Attending Note I evaluated the patient and personally participated in the simmons components. I agree with the resident's findings and plan as documented and have discussed the case and management of the patient's care with the resident. Signature: Abraham Lorenzo DO, MBA Date: 07/06/2019 Time: 10:19 AM [facility] PROGRESS HNO ID: [id number] Author: Jim Castro DO Service: Cardiac Surgery [...] 07/06/2019 0400 Gross per 24 hour Intake 96642 ml Output 34907 ml Net -1239 ml TELEMETRY: Afib with RVR PHYSICAL EXAM: General: Well developed and well nourished appearance. Mild distress. Skin: No rash on chest, arms or legs. Warm, dry. Head/Eyes: Sclera clear, normal conjunctiva. EOMI. Mouth/Pharynx: Teeth: Fair dentition. No lesions. Neck: No JVD. Supple. R IJ [place] Ale catheter Lungs: Unlabored breathing on ventilator [...] 2019 TIME: 6:05 AM PAGER/CONTACT #: [phone] [facility] THERAPY NTon 07-06-2019 THERAPY NT HNO ID: [id number] Author: Crystal GusmanOtr/Carleen Berrios Service: Occupational Therapy Author Type: Occupational Therapist Type: Therapy (PT/OT/Speech/Resp) Filed: 07/06/2019 4:11 PM Note Text: Occupational Therapy Evaluation SERVICE DATE: 07/06/2019 SERVICE TIME: 1345 to 1355 ROOM: [id number] Recommended Discharge Disposition: Subacute/SNF Recommended Discharge Disposition [...] and Awareness Interventions Provided: Evaluation $ Evaluation-Moderate (04732) Billed Units: 1 unit OT Evaluation Moderate [...] Environment Patient Lives With: Family(sister) Assistance Available: horse race timer Entry To Home: Stairs Prior Functional Level: [...] July 06, 2019 TIME: 4:11 PM [facility] THERAPY NT HNO ID: [id number] Author: Misa GusmanPtSachin Felipe Service: Physical Therapy Author Type: Physical Therapist Type: Therapy (PT/OT/Speech/Resp) Filed: 07/06/2019 2:51 PM Note Text: Physical Therapy Evaluation SERVICE DATE: 07/06/2019 SERVICE TIME: 1350 to 1415 ROOM: [place] [address] Recommended Discharge Disposition: Subacute/SNF Recommended Discharge Disposition [...] Patient TREATMENT INTERVENTIONS: Interventions Provided: Evaluation;Gait Training (81941) $ Evaluation-Moderate (16400) Billed Units: 1 unit History and examination of body systems see assessment section above. This patient?s clinical presentation is evolving. The patient required a moderate complexity evaluation. Gait Training (34110) Treatment Minutes: 8 1 unit Skilled Intervention(s): [...] Environment Patient Lives With: Family(sister) Assistance Available: horse race timer Entry To Home: Stairs Prior Functional Level: [...] July 06, 2019 TIME: 2:44 PM [facility] CASE MGT INIT DEVANmary grace 2018 CASE MGT INIT DEVAN HNO ID: [id number] Author: Imelda (Agusto) AGUSTO Rizvi Service: ? [...] Current Advance Directive: Health Care Power of Aluminum Polisher;Living Will In Chart: Yes Up To Date [...] Walker Has the Patient Been in a [place] [facility] Facility in the Past 30 days? No [...] meeting these needs: home with sister and [facility] Does the patient have an acute stroke diagnosis, or has the patient had a stroke during this admission? 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 Discussed post CABG disch needs. Planis home with sister's assist. Agreeable to VNS - referral created. SIGNATURE: Imelda Rizvi RN PATIENT NAME: Elias Shah DATE: July 05, 2019 TIME: 3:01 PM PAGER/CONTACT #: [phone] [facility] ECG COMPLETEon 07-05-2019 ECG COMPLETE NAME : ELIAS SHAH PID : [id number] : 1940 Gender : Male Race : ORD : [id number] Procedure Date : Jul 05 2019 04:46:58 Edit Date : Jul 05 2019 08:38:13 Diagnosis:AV dual-paced rhythm ABNORMAL ECG WHEN COMPARED WITH ECG OF 04-JUL-2019 15:30, VENT. RATE HAS INCREASED BY 63 BPM Confirmed by MD CHUNG, ABDELRAHMAN ([id number]) on 07/05/2019 8:38:12 AM Ventricular Rate : 139 BPM Atrial Rate : 139 BPM QRS Duration : 36 ms Q-T Interval : 170 ms QTC Calculation(Bazett) : 258 ms R [place] : 88 degrees T [place]aki[place] : -58 degrees Test Reason : Post-OP Location : 6 : [place] [address] Overread By : MD CHUNG,ABDELRAHMAN Edited By : MD CHUNG,ABDELRAHMAN Referred By : WAYNE RIVERS Acquired by : SAÚL HOWARD [facility] NUTRITIONon 07-05-2019 NUTRITION HNO ID: [id number] Author: Teresa (Call Center Director) Marion Service: Nutrition Therapy Author Type: Client Services Account Manager Type: Nutrition Filed: 07/05/2019 2:33 PM Note Text: Attestation signed by Yasmine Sanchez RD at 07/05/2019 3:04 PM NUTRITION THERAPY: TEACHING DIETITIAN NOTE OF PERSONAL INVOLVEMENT OF CARE. I have reviewed and agree with the assessment as documented by the administration intern. I have discussed the case and management of the patient?s nutrition therapy with the administration intern. SIGNATURE: Yasmine Sanchez RD, LD DATE: July [...] Resting Metabolic Rate: 1712 Estimated kilocalorie needs: 1031-1354 kilocalories determined by 25-30 kcal/kg Estimated protein needs: 115-145 grams determined by 1.2-1.5 g/kg Dosing weight Estimated fluid needs: 8199-9811 milliliters based on 1 mL per kcal [...] Assess/15 min 3 units SIGNATURE: Teresa Schultz, Call Center Director PATIENT NAME: Elias Shah DATE: July 05, 2019 TIME: 9:28 AM PAGER: [phone] [facility] PROGRESSon 07-05-2019 PROGRESS HNO ID: [id number] Author: Marlon Millan (Pa) Service: Cardiovascular Surgery Author Type: Physician Post Anesthesia Care Unit Nurse Type: Progress Notes Filed: 07/05/2019 2:58 PM [...] 07/05/2019 1200 Gross per 24 hour Intake 92985.1 ml Output 96046 ml Net 1573.1 ml TELEMETRY: Paced with [...] 05, 2019 TIME: 2:23 PM PAGER/CONTACT #: [phone] ETX [phone] [facility] PROGRESS HNO ID: [id number] Author: Earline (Rn) AGUSTO Celaya Service: Nursing Author Type: Registered Nurse Type: Progress Notes Filed: 07/05/2019 12:46 PM Note Text: 1105: pt extubated to 4L nc without distress. [facility] PROGRESS HNO ID: [id number] Author: Bhanu Miranda MD Service: Urology Author [...] 07/05/2019 0700 Gross per 24 hour Intake 86193.1 ml Output 43885 ml Net 1644.1 ml Physical Exam: General: [...] 7.346 (L) 7.350 - 7.450 Final Specific [place], Ur Date Value Ref Range Status 06/27/2019 [...] PGY-2 July 05, 2019 11:23 AM Pager: [phone] [facility] PROGRESS HNO ID: [id number] Author: Marlon Dubon Jr. Service: Critical Care [...] HERNIA 12/04/2018 after bowel perforation done at [facility] Dr. Young Social History Socioeconomic History Marital [...] file Gets together: Not on file Attends christianity service: Not on file Active member of [...] 07/05/2019 0700 Gross per 24 hour Intake 21152.1 ml Output 32315 ml Net 1644.1 ml MEDICATIONS Current Facility-Administered [...] July 05, 2019 TIME: 10:30 AM [facility] PROGRESS HNO ID: [id number] Author: Jim Castro DO Service: Cardiac Surgery [...] 07/05/2019 0400 Gross per 24 hour Intake 86959.1 ml Output 10909 ml Net 454.1 ml TELEMETRY: A-V sequential pacing PHYSICAL EXAM: General: Well developed and well nourished appearance. No acute distress. Skin: No rash on chest, arms or legs. Warm, dry. Head/Eyes: Sclera clear, normal conjunctiva. EOMI. Mouth/Pharynx: Teeth: Fair dentition. No lesions. Neck: No JVD. Supple. R IJ [place] Ale catheter Lungs: Unlabored breathing on ventilator [...] resolved Tests/Labs Ordered: 1. Hemoglobin SIGNATURE: Jim aCstro DO PATIENT NAME: Elias Shah DATE: July 05, 2019 TIME: 6:11 AM PAGER/CONTACT #: [phone] [facility] PROGRESS HNO ID: [id number] Author: Joel (Rn) AGUSTO Resendez Service: Critical Care Author Type: Registered Nurse Type: Progress Notes Filed: 07/05/2019 4:22 AM Note Text: HAND H 1 hour after completion of PRBC infusion 6.[address] Rivers paged twice. RN reported lab to Dr. Kincaid. See new orders. [facility] THERAPY NTon 07-05-2019 THERAPY NT HNO ID: [id number] Author: Crystal GusmanOtr/Carleen Berrios Service: Occupational Therapy Author Type: Occupational Therapist Type: Therapy (PT/OT/Speech/Resp) Filed: 07/05/2019 11:54 AM Note Text: OCCUPATIONAL THERAPY MISSED VISIT SERVICE DATE: 07/05/2019 SERVICE TIME: 1154 to 1154 ROOM: [place] [address] Attempted Evaluation. Patient not seen due to Illness(intubted). Will continue to follow as able and appropriate. SIGNATURE: Crystal Berrios OTR/Carroll PATIENT NAME: Elias Shah DATE: July 05, 2019 TIME: 11:54 AM [facility] THERAPY NT HNO ID: [id number] Author: Nohemi Meehan Service: Physical Therapy Author Type: Physical Therapist Type: Therapy (PT/OT/Speech/Resp) Filed: 07/05/2019 8:54 AM Note Text: PHYSICAL THERAPY MISSED VISIT SERVICE DATE: 07/05/2019 SERVICE TIME: 08 to 852 ROOM: [place] [address] Attempted Evaluation. Patient not seen due to Illness(intubated). Will continue to follow patient as able. SIGNATURE: Nohemi Meehan PT PATIENT NAME: Elias Shah DATE: July 05, 2019 TIME: 8:54 AM [facility] ANES Namita 07-04-2019 ANES POST HNO ID: [id number] Author: Dion Monroe Service: Anesthesiology Author Type: [...] 04, 2019 TIME: 7:58 PM PAGER/CONTACT #: [phone] [facility] ANES PREOPon 07-04-2019 ANES PREOP HNO ID: [id number] Author: Burak Gamez Service: ? Author Type: [...] HERNIA 12/04/2018 after bowel perforation done at [facility] Dr. Young FAMILY HISTORY Problem Relation Age [...] RELIEF) 50 mcg/actuation nasal spray Use 1 [place] in each nostril once daily. Cholecalciferol, Vitamin [...] July 04, 2019 TIME: 7:33 AM CSN: [id number] [facility] BRIEF OP NOTon 07-04-2019 BRIEF OP NOT HNO ID: [id number] Author: Jim Castro DO Service: Cardiac Surgery [...] BRIEF OPERATIVE / PROCEDURE NOTE LOG ID: [id number] SURGERY/PROCEDURE DATE: 07/04/2019 INCISION/PROCEDURE START TIME: 8:32 AM INCISION CLOSE/PROCEDURE END TIME: 1:40 PM SURGEON(S)/PROCEDURAL IST(S) AND SYSTEMS PLANNER(S): Surgeon(s) and Role: * Wayne Rivers - Primary * Jim Castro DO - Resident - Assisting Physician Post Anesthesia Care Unit Nurse: Aubree Raman (Pa) Reeling Machine Setup Operator: Joellen Rivas SA SURGERY/PROCEDURE(S): Two vessel cardiac [...] 2019 TIME: 2:06 PM PAGER/CONTACT #: [phone] [facility] CONSULTon 07-04-2019 CONSULT HNO ID: [id number] Author: Bhanu Miranda MD Service: Urology Author [...] HERNIA 12/04/2018 after bowel perforation done at [facility] Dr. Young ALLERGIES: ALLERGIES No Known Allergies [...] RELIEF) 50 mcg/actuation nasal spray Use 1 [place] in each nostril once daily. Disp: Rfl: [...] 07/04/2019 7.410 7.350 - 7.450 Final Specific [place], Ur Date Value Ref Range Status 06/27/2019 [...] Bhanu Miranda MD 07/04/2019 7:07 PM [facility] ECG COMPLETEon 07-04-2019 ECG COMPLETE NAME : ELIAS SHAH PID : [id number] : 1940 Gender : Male Race : ORD : [id number] Procedure Date : Jul 04 2019 15:30:55 Edit Date : Jul 05 2019 08:38:41 Diagnosis:AV dual-paced rhythm with prolonged AV conduction ABNORMAL ECG WHEN COMPARED WITH ECG OF 04-JUL-2019 14:32, VENT. RATE HAS INCREASED BY 6 BPM Confirmed by MD CHUNG, ABDELRAHMAN ([id number]) on 07/05/2019 8:38:40 AM Ventricular Rate : 76 BPM Atrial Rate : 76 BPM P-R Interval : 368 ms QRS Duration : 38 ms Q-T Interval : 374 ms QTC Calculation(Bazett) : 420 ms R [place] : 90 degrees T [place] : -30 degrees Test Reason : Arrhythmia Location : 6 : ICU 322 Overread By : MD WILKES ANUBHAV Edited By : MD WILKES ANUBHAV Referred By : WAYNE RIVERS Acquired by : ELKE DUMONT [facility] ECG COMPLETE NAME : ELIAS SHAH PID : [id number] : 1940 Gender : Male Race : ORD : [id number] Procedure Date : Jul 04 2019 14:32:24 Edit Date : Jul 05 2019 08:37:21 Diagnosis:Atrial-sens ed ventricular-paced rhythm with prolonged AV conduction ABNORMAL ECG NO PREVIOUS ECGS AVAILABLE Confirmed by MD WILKES ANUBHAV ([id number]) on 07/05/2019 8:37:20 AM Ventricular Rate : 70 BPM Atrial Rate : 70 BPM P-R Interval : 352 ms QRS Duration : 32 ms Q-T Interval : 368 ms QTC Calculation(Bazett) : 397 ms R [place] : 90 degrees T [place]aki[place] : -43 degrees Test Reason : Post-OP Location : 6 : CVICU 3229 Overread By : MD WILKES ANUBHAV Edited By : MD WILKES ANUBHAV Referred By : WAYNE RIVERS Acquired by : [id number], [facility] HISTORY PHYSICALon HISTORY PHYSICAL HNO ID: [id number] Author: Jim Castro DO Service: Cardiac Surgery [...] July 04, 2019 TIME: 6:45 AM PAGER: [phone] [facility] NURSING PROGon 07-04-2019 NURSING PROG HNO ID: [id number] Author: Stephany (Rn) AGUSTO Peterson Service: ? Author Type: Registered Nurse Type: Nursing Progress Note Filed: 07/04/2019 6:52 PM Note Text: 1800 Discussed extubation plan with Elke Buckley RT in room. PLan is to complete weaning parameters at 1830. 1830 RT paged to complete weaning paramters. Stephany Peterson, RN 1850 RT paged to complete weaning parameters. Stephany Peterson RN [facility] OPERATIVE NOon 07-04-2019 OPERATIVE NO HNO ID: [id number] Author: Wayne Rivers Service: Cardiac Surgery Author Type: Physician Type: Operative Report Filed: 07/05/2019 6:23 PM Note Text: [facility] - Operative Report ELIAS SHAH : 1940 AGE: 79. SEX: M PATIENT TYPE: I HOSP SVC: [facility]CA LOCATION: [id number] ATTENDING PHYSICIAN: WAYNE RIVERS [facility] NUMBER: [id number] DATE OF SURGERY/PROCEDURE: 07/04/2019 INCISION/PROCEDURE START TIME: 8:32 AM INCISION CLOSE/PROCEDURE END TIME: 1:40 PM PREOPERATIVE DIAGNOSIS: Multivessel coronary disease; severe aortic stenosis; paroxysmal atrial fibrillation. POSTOPERATIVE DIAGNOSIS: Multivessel coronary disease; severe aortic stenosis; paroxysmal atrial fibrillation. SURGEON: Wayne Rivers MD SYSTEMS PLANNER: Ms. Raman and Ms. Rivas. SURGERY/PROCEDURE: Aortic [...] in layers with absorbable suture. The sternal daycare manager was placed in the wound. A pericardial [...] to CV-ICU in good condition. MD JUVENAL Mendez:[id number] /[id number] [facility] PROGRESSon 07-04-2019 PROGRESS HNO ID: [id number] Author: Joel (Rn) AGUSTO Resendez Service: Critical Care Author Type: Registered Nurse Type: Progress Notes Filed: 07/04/2019 8:16 PM Note Text: Weaning parameters not met. NIF -12 and pt very drowsy. Dr. Kincaid notified. Plan is to recheck parameters at 2100 and re evaluate for extubation. [facility] PROGRESS HNO ID: [id number] Author: Marlon Dubon Jr. Service: Critical Care [...] HERNIA 12/04/2018 after bowel perforation done at [facility] Dr. Young Social History Socioeconomic History Marital [...] file Gets together: Not on file Attends christianity service: Not on file Active member of [...] July 04, 2019 TIME: 2:38 PM Normal [facility] CONSULT PROGon 06-28-2019 CONSULT PROG HNO ID: [id number] Author: Higinio Bacon Service: Cardiac Surgery Author [...] 2.42% CABG/AVR CARE TEAM: Cardiac Surgeon: Carlitos Brand Analyst: Primo PCP: Regla Other Providers: Pre-Op Testing: [...] with VKA drugs, such as warfarin, the [employer] [employer] 2012 Guideline recommends [...] 06/27/2019 6.0 5.0 - 8.0 Final Specific [place], [place] Date Value Ref Range Status 06/27/2019 [...] No Other No Higinio Bacon APRN.KEE Normal [facility] Nii 06-27-2019 CNOV Office Visit (AGVASACC) LEONID,ELIAS K ([id number]) 1940 M Date Time Provider Department 06/27/19 [...] Normal sinus rhythm. - CAD of the tribe vessel. No interventions. Stable with no angina [...] HERNIA 12/04/2018 after bowel perforation done at [facility] Dr. Young FAMILY HISTORY Problem Relation Age [...] RELIEF) 50 mcg/actuation nasal spray Use 1 [place] in each nostril once daily. loperamide (IMODIUM) [...] (primary diagnosis) 2. Coronary artery disease involving tribe heart, angina presence unspecified, unspecified vessel or [...] 2019 TIME: 10:51 AM PAGER/CONTACT #: [phone] Higinio Bacon APRN.CNP 06/27/2019 2:06 PM Addendum [facility] System Pre-Admission Patient Instruction You are [...] at home. Remove all make-up and nail guinean before admission. We need to check your [...] [I35.0] Other Visit Diagnoses:Coronary artery disease involving tribe heart, angina presence unspecified, unspecified vessel or [...] FLONASE ALLERGY RELIEF 50 MCG* Use 1 [place] in each nostril o* LOPERAMIDE 2 MG [...] INVALID FOR* Other instructions from your clinician: [facility] System Pre-Admission Patient Instruction You are scheduled [...] at home. Remove all make-up and nail guinean before admission. We need to check your [...] Status:Closed by HIGINIO BACON CNP on 06/27/19 [facility] HISTORY PHYSICALon 9 HISTORY PHYSICAL HNO ID: [id number] Author: Higinio Bacon Service: ? Author Type: [...] Normal sinus rhythm. - CAD of the tribe vessel. No interventions. Stable with no angina [...] HERNIA 12/04/2018 after bowel perforation done at [facility] Dr. Young FAMILY HISTORY Problem Relation Age [...] RELIEF) 50 mcg/actuation nasal spray Use 1 [place] in each nostril once daily. loperamide (IMODIUM) [...] (primary diagnosis) 2. Coronary artery disease involving tribe heart, angina presence unspecified, unspecified vessel or [...] 2019 TIME: 10:51 AM PAGER/CONTACT #: [phone] [facility] PROGRESSon 06-27-2019 PROGRESS HNO ID: [id number] Author: Higinio Bacon Service: ? Author Type: Nurse Practitioner Type: Progress Notes Filed: 06/27/2019 2:23 PM Note Text: [facility] Adult Cardiac Surgery Database Version 2.9 RISK SCORES Procedure: AVR + CAB Risk of Mortality: 2.422% Renal Failure: 2.127% Permanent Stroke: 1.782% Prolonged Ventilation: 8.378% DSW Infection: 0.164% Reoperation: 4.895% Morbidity or Mortality: 14.596% Short Length of Stay: 24.719% Long Length of Stay: 7.222% [facility]-20[facility]AGLaimoon.comACC[facility] ELIAS SHAH ([id number]) 1940 M Date Time Provider Department 06/20/19 [...] no record of) The patient comes from [place] and they don't want to Make two trips to [place] for the same reason. Amalia is not understanding what is going on and she's frustrated and would like to speak with Higinio at [phone] Higinio Bacon APRN.KEE 06/20/2019 11:09 AM Signed I called and spoke to Mrs Zamora. They do not need to come to the appointment on 06/21. That was scheduled in anticipation of TAVR. Mr Shah is not a TAVR candidate. He need CABG/AVR. This is scheduled 07/04. He has a PAT appointment with wi 06/27 at 1 pm. She verbalized understanding and agreed to this plan. Higinio Bacon APRN.DETECTIVE PRECINCT Allergies As of Date: 06/20/2019 (No Known [...] ridge* FLUTICASONE PROPIONATE 50 MCG* Use 1 [place] in each nostril o* LOPERAMIDE 2 MG [...] Encounter Status:Closed by LUDIVINA [facility]SON [facility] (AGVASACC) ELIAS SHAH ([id number]) 1940 M Date Time Provider Department 06/15/19 [...] Schedule Surgery [1330] Order(s):SURGICAL REQUEST - ELECTIVE [[id number]] Order #: [id number]: 1 Prescriptions as of 06/15/2019 Sig: ASPIRIN [...] ridge* FLUTICASONE PROPIONATE 50 MCG* Use 1 [place] in each nostril o* LOPERAMIDE 2 MG [...] Encounter Status:Closed by LESLEY SANTANA on 06/16/19 [facility] HOSPon 06-15-2019 HOSP Patient:Manav Shah [...] Progress Notes (JALYN AG CTVS): Higinio Bacon, GEODETIC ENGINEER.DETECTIVE PRECINCT 06/28/2019 1:42 PM Addendum CARDIOTHORACIC SURGERY CONSULT [...] Normal sinus rhythm. - CAD of the tribe vessel. No interventions. Stable with no angina [...] HERNIA 12/04/2018 after bowel perforation done at [facility] Dr. Young FAMILY HISTORY Problem Relation Age [...] RELIEF) 50 mcg/actuation nasal spray Use 1 [place] in each nostril once daily. loperamide (IMODIUM) [...] (primary diagnosis) 2. Coronary artery disease involving tribe heart, angina presence unspecified, unspecified vessel or [...] 2019 TIME: 10:51 AM PAGER/CONTACT #: [phone] Previous Version Higinio Bacon APRN.CNP 06/27/2019 2:06 PM Addendum [facility] System Pre-Admission Patient Instruction You are scheduled [...] at home. Remove all make-up and nail guinean before admission. We need to check your [...] no record of) The patient comes from [place] and they don't want to Make two trips to [place] for the same reason. Amalia is not understanding what is going on and she's frustrated and would like to speak with Hgiinio at [phone] Higinio Bacon APRN.DETECTIVE PRECINCT 06/20/2019 11:09 AM Signed I called and spoke to Mrs Zamora. They do not need to come to the appointment on 06/21. That was scheduled in anticipation of TAVR. Mr Shah is not a TAVR candidate. He need CABG/AVR. This is scheduled 07/04. He has a PAT appointment with wi 06/27 at 1 pm. She verbalized understanding and agreed to this plan. Higinio Bacon APRN.DETECTIVE PRECINCT [facility] BRIEF OP NOTon 05-25-2019 BRIEF OP NOT HNO ID: [id number] Author: Roger Bone Service: Interventional Cardiology Author Type: Physician Type: Brief Op Note Filed: 05/25/2019 1:15 PM Note Text: CARDIAC CATHETERIZATION REPORT PATIENT NAME: Elias Shah SERVICE DATE: 05/25/2019 SERVICE TIME: 1:05 PM Brand Analyst: Roger Bone MD Attending: Roger Bone RECOMMENDATIONS: [...] DATE: May 25, 2019 TIME: 1:05 PM [facility] NURSING PROGon 05-25-2019 NURSING PROG HNO ID: [id number] Author: Quinn GusmanRn) AGUSTO Rodrigues Service: ? Author Type: Registered Nurse Type: Nursing Progress Note Filed: 05/25/2019 3:26 PM Note Text: Report to Sharon OLGUIN [facility] NURSING PROG HNO ID: [id number] Author: Quinn GusmanRn) AGUSTO Rodrigues Service: ? Author Type: Registered Nurse Type: Nursing Progress Note Filed: 05/25/2019 3:22 PM Note Text: Dr. Promise Bone aware of patient HR and blood pressure and advised okay to discharge when TR band is removed, no further orders given. [facility] PROGRESSon 05-25-2019 PROGRESS HNO ID: [id number] Author: Sharon GusmanRn) AGUSTO León Service: Nursing Author Type: Registered Nurse Type: Progress Notes Filed: 05/25/2019 4:19 PM Note Text: Upon removal of R-Band, patient's right radial site began to ooze bright red blood. Dressing changed and pressured applied by RN. Minimal drainage on bandage. Extra gauze dressing and tegaderm sent home with patient and instructed on what to do if bleeding occurs. [facility] HOSPon 05-13-2019 HOSP Patient:Manav Shah [...] understanding. Instructions were as follows: -Arrive to [facility] Entrance May 25, 2019 at time assigned by [facility] labor representative staff in phone call 2:00 and 5:00 PM.. -Nothing by mouth after midnight evening prior. -With a sip of water on May 25, 2019 morning take: Aspirin 325mg along with usual BP meds Norvasc and Coreg -Labs to be done CBC, BMP - You must have someone drive you home from your procedure. -labor representative policy is pt not be alone first evening Office phone number provided for questions or concerns. Torin: [facility] laboratory worker notified. Ameena at [facility] laboratory worker notified of update on changing from Dr. Green to Dr. Bone as noted above. Torie Henriquez, RN Previous Version MICHAEL Kirkpatrick, [facility] 05/20/2019 10:03 AM Signed Patient has Medicare A AND B primary coverage so does not require prior authorization. We have started a new process to provide estimates to our patients for their upcoming appointment at [facility]. The purpose is to make you aware [...] for you. Martha Guillen Progress Notes ([facility]): Latisha Matthews RN 05/11/2019 1:23 [...] understanding. Instructions were as follows: -Arrive to [facility] Entrance May 25, 2019 at time assigned by [facility] labor representative staff in phone call 2:00 -5:00 PM.. -Nothing by mouth after midnight evening prior. -With a sip of water on Saturday May 25, 2019 morning take: Aspirin 325mg along with usual BP meds- coreg and Norvasc -Labs to be done CBC, BMP - You must have someone drive you home from your procedure. -labor representative policy is pt not be alone first evening Office phone number provided for questions or concerns. Torin: [facility] laboratory worker notified. Normal [facility] CNOVon 05-11-2019 CNOV Office Visit (AGCARDPOB) ELIAS SHAH ([id number]) 1940 Date Time Provider Department 05/11/19 10:30 AM ESPINOZA BASS During your visit today, we recorded the following information about you: Pulse Respiration Blood pressure Weight 48/minute 16/minute 140/64 88.8 kg Height 1.829 m Rebecca Ballard CMA 05/11/2019 10:11 AM Signed Patient denies any cardiac complaints today. Rebecca Ballard [facility] Espinoza Bass MD 05/11/2019 4:06 PM [...] HERNIA 12/04/2018 after bowel perforation done at [facility] Dr. Young FAMILY HISTORY Problem Relation Age [...] RELIEF) 50 mcg/actuation nasal spray Use 1 [place] in each nostril once daily. loperamide (IMODIUM) [...] Allergies Cardiac Testing Transesophageal echocardiogram performed in [place] in February 2019: Ejection fraction 65%, severe restriction of the aortic valve with moderate to severe aortic stenosis with a peak gradient of 52 mmHg, mean gradient of 28 mmHg. Transthoracic echocardiogram performed in November 2018 at [facility]: Ejection fraction 68%, peak and mean gradients [...] heart catheterization and coronary angiogram performed at [place] which reflected mild coronary artery disease, but [...] - ECHO 2. Coronary artery disease involving tribe coronary artery of tribe heart without angina pectoris - ICD9: 414.01, [...] Espinoza Bass MD Referring Provider: GERALD ANN [[id number]] Allergies As of Date: 05/11/2019 (No Known Allergies) Date Reviewed: 05/11/2019 Reviewed by: Rebecca Ballard - Fully Assessed Reason for Visit: New Patient [172] Primary Visit Diagnosis:Nonrheumati c aortic valve stenosis [I35.0] Other Visit Diagnoses:Coronary artery disease involving tribe coronary artery of tribe heart without angina pectoris [I25.10] Pre-op evaluation [Z01.818] Essential hypertension [I10] Order(s):LEFT HEART CATH,PERCUTANEOUS [88183YVG] Order #: [id number]: 1 ECHO [537576] Order #: [id number]: 1 FUTURE perflutren lipid microspheres (DEFINITY) 1.1 [...] ridge* FLUTICASONE PROPIONATE 50 MCG* Use 1 [place] in each nostril o* LOPERAMIDE 2 MG [...] denies any cardiac complaints today. Rebecca Ballard [facility] Prescriptions ordered this encounter Disp Refills Start End PERFLUTREN LIPID MICROSPHERES 1.1 MG* 1.3 * 0 05/11/2019 05/10/2020 Class: In Office Route: INTRAVENOUS Sig: Inject 1.3 mL intravenously as directed. Disposition: Return in about 1 month (around 06/10/2019). Follow-up and Disposition History Recorded Encounter Status:Closed by ESPINOZA BASS on 05/11/19 [facility] CNOV Office Visit (AGCARDPOB) LEONIDELIAS Yen ([id number]) 1940 M Date Time Provider Department 05/11/19 [...] Wayne Rivers MD Referring Provider: GERALD ANN [[id number]] Allergies As of Date: 05/11/2019 (No Known Allergies) Date Reviewed: 05/11/2019 Reviewed by: Rebecca Ballard - Fully Assessed Reason for Visit: Cardiology Follow Up [1732] Primary Visit Diagnosis:Preoperativ e cardiovascular examination [Z01.810] Other Visit Diagnoses:Coronary artery disease involving tribe coronary artery of tribe heart without angina pectoris [I25.10] Nonrheumatic aortic valve stenosis [I35.0] Order(s):perflutren lipid microspheres (DEFINITY) 1.1 mg/mL injection (to be provided with echo procedure)Inject 1.3 mL intravenously as directed.Disp: 1.3 mLRfl: 0 LEFT HEART CATH/CORON/LV (AG) [[id number]] Order #: [id number] Prescriptions as of 05/11/2019 Sig: PERFLUTREN LIPID MICROSPHERES* Inject 1.3 mL intravenously a* LACTOBACILLUS ACIDOPH-LACTASE* Take by mouth twice daily. ACETAMINOPHEN 500 MG CAPSULE Take 2 capsules by mouth twic* AMLODIPINE 5 MG TABLET Take 5 mg by mouth once daily. CARVEDILOL 25 MG TABLET Take 25 mg by mouth three ridge* FLUTICASONE PROPIONATE 50 MCG* Use 1 [place] in each nostril o* LOPERAMIDE 2 MG [...] of Service: EST PATIENT VISIT LEVEL 1 [78413] Encounter Status:Closed by WAYNE RIVERS MD on 05/17/19 [facility] Oswaldo 05-11-2019 CNPN Telephone (AGCARDPOB ) LEONIDELIAS ([id number]) 1940 M Date Time Provider Department 05/11/19 [...] understanding. Instructions were as follows: -Arrive to [facility] Entrance May 25, 2019 at time assigned by [facility] labor representative staff in phone call 2:00 -5:00 PM.. -Nothing by mouth after midnight evening prior. -With a sip of water on Saturday May 25, 2019 morning take: Aspirin 325mg along with usual BP meds- coreg and Norvasc -Labs to be done CBC, BMP - You must have someone drive you home from your procedure. -labor representative policy is pt not be alone first evening Office phone number provided for questions or concerns. Torin: [facility] laboratory worker notified. Allergies As of Date: 05/11/2019 (No [...] ridge* FLUTICASONE PROPIONATE 50 MCG* Use 1 [place] in each nostril o* LOPERAMIDE 2 MG CAPSULE Take 2 mg by mouth once daily. CHOLECALCIFEROL (VITAMIN D3) * Take 5,000 Units by mouth onc* FERROUS SULFATE 325 MG (65 MG* Take 325 mg by mouth daily wi* ROSUVASTATIN 5 MG TABLET Take 5 mg by mouth once daily. Problem List As Of Date: 05/11/2019 (None) Encounter Status:Closed by TORIE HENRIQUEZ on 05/13/19 [facility] HISTORY PHYSICALon HISTORY PHYSICAL HNO ID: [id number] Author: Espinoza Bass Service: ? Author Type: [...] HERNIA 12/04/2018 after bowel perforation done at [facility] Dr. Young FAMILY HISTORY Problem Relation Age [...] RELIEF) 50 mcg/actuation nasal spray Use 1 [place] in each nostril once daily. loperamide (IMODIUM) [...] Allergies Cardiac Testing Transesophageal echocardiogram performed in [place] in February 2019: Ejection fraction 65%, severe restriction of the aortic valve with moderate to severe aortic stenosis with a peak gradient of 52 mmHg, mean gradient of 28 mmHg. Transthoracic echocardiogram performed in November 2018 at [facility]: Ejection fraction 68%, peak and mean gradients [...] heart catheterization and coronary angiogram performed at [place] which reflected mild coronary artery disease, but [...] - ECHO 2. Coronary artery disease involving tribe coronary artery of tribe heart without angina pectoris - ICD9: 414.01, [...] Follow-up in one month Espinoza Bass MD [facility] PROGRESSon 05-11-2019 PROGRESS HNO ID: [id number] Author: Wayne Rivers Service: ? Author Type: [...] recommendations to follow. Wayne Rivers MD Normal [facility] HOSPon 04-27-2019 HOSP Patient:Manav Shah rd [...] sister Amalia Zamora. Also request sent to [facility] Interventional Radiology for Cardiac CTA, AND CTA A/P TAVR protocol. They will contact pt directly to schedule. ? La Ivan 04/20/2019 2:31 PM Signed Okay thanks! Elisha Cardenas ?You 25 minutes ago (2:05 PM) TAVR clinic appt 05/11 10:30am Routing Comment Normal [facility] CNPJohanna 04-20-2019 CNPN Telephone (AGVASACC) LEONIDELIAS GABRIEL ([id number]) 1940 M Date Time Provider Department 04/20/19 WAYNE RIVERS During your visit today, we recorded the following information about you: Elisha Cardenas 04/20/2019 2:05 PM Signed Mr. Shah is schedule 05/11/19 10:30am with Dr. Green and Dr. Rivers for TAVR consult. Appointment information given to Mr. Shah's sister Amalia Zamora. Also request sent to [facility] Interventional Radiology for Cardiac CTA, AND CTA [...] ridge* FLUTICASONE PROPIONATE 50 MCG* Use 1 [place] in each nostril o* LOPERAMIDE 2 MG CAPSULE Take 2 mg by mouth once daily. CHOLECALCIFEROL (VITAMIN D3) * Take 5,000 Units by mouth onc* FERROUS SULFATE 325 MG (65 MG* Take 325 mg by mouth daily wi* ROSUVASTATIN 5 MG TABLET Take 5 mg by mouth once daily. Problem List As Of Date: 04/20/2019 (None) Encounter Status:Closed by ELISHA CARDENAS on 04/20/19 [facility] CNTRTMon 04-19-2019 CNTRT Treatment Team (AGVASACC) LEONIDELIAS ([id number]) 1940 M Date Time Provider Department 04/19/19 [...] [I35.0] Other Visit Diagnosis:Coronary artery disease involving tribe heart with angina pectoris, unspecified vessel or lesion type (HCC) [I25.119] Order(s):LEFT HEART CATH,PERCUTANEOUS [[id number]] Order #: [id number]: 1 Prescriptions as of 04/19/2019 Sig: LACTOBACILLUS ACIDOPH-LACTASE* Take by mouth twice daily. ACETAMINOPHEN 500 MG CAPSULE Take 2 capsules by mouth twic* AMLODIPINE 5 MG TABLET Take 5 mg by mouth once daily. CARVEDILOL 25 MG TABLET Take 25 mg by mouth three ridge* FLUTICASONE PROPIONATE 50 MCG* Use 1 [place] in each nostril o* LOPERAMIDE 2 MG [...] Status:Closed by HIGINIO BACON CNP on 04/19/19 [facility] PROGRESSon 04-19-2019 PROGRESS HNO ID: [id number] Author: Higinio Bacon Service: ? Author Type: [...] follow CAD intervention. ? Higinio Bacon, ADRYAN.KEE [facility] CNOVon 04-13-2019 CNOV Office Visit (AGVASACC) ELIAS SHAH ([id number]) 1940 M Date Time Provider Department 04/13/19 [...] 13, 2019 TIME: 1:46 PM PAGER/CONTACT #: [phone] 1. 8 sec 2. 7.3 sec 3. [...] call us if you have any concerns/questions: [phone] OLEKSANDR Albrecht MD 04/13/2019 3:22 PM Signed Elias Shah is an 78 year old man referred for evaluation of symptomatic severe aortic stenosis and for consideration for SAVR versus TAVR. He was admitted to [facility] in November with acute illness due [...] had further evaluation by Dr. Ann of [place] cardiology. Left heart catheterization shows no significant [...] HERNIA 12/04/2018 after bowel perforation done at [facility] Dr. Young REVIEW OF SYSTEMS: GENERAL: Fever [...] Rivers MD . Referring Provider: GERALD ANN [[id number]] Allergies As of Date: 04/13/2019 (No Known [...] anemia [D62] Order(s):CREATININE BLD [SQCRET] Order #: [id number] FUTURE CTA CHEST (GATED) WO/W IVCON [[id number]] Order #: [id number] FUTURE CTA ABD/PEL W IVCON [0905582] Order #: [id number] FUTURE IRON + TIBC [SQIRON] Order #: [id number] FUTURE US CAROTID ARTERIES [facility] [8685787] Order #: [id number] FUTURE FERRITIN BLD [SQFERR] Order #: [id number] FUTURE Prescriptions as of 04/13/2019 Sig: LACTOBACILLUS ACIDOPH-LACTASE* Take by mouth twice daily. ACETAMINOPHEN 500 MG CAPSULE Take 2 capsules by mouth twic* AMLODIPINE 5 MG TABLET Take 5 mg by mouth once daily. CARVEDILOL 25 MG TABLET Take 25 mg by mouth three ridge* FLUTICASONE PROPIONATE 50 MCG* Use 1 [place] in each nostril o* LOPERAMIDE 2 MG [...] call us if you have any concerns/questions: [phone] Milad Paniagua APRN.DETECTIVE PRECINCT Visit Notes: >> Brook Sweeney ThuApril 13, 2019 1:46 PM Status: Signed CARDIAC REHAB 5 METER WALK TEST SERVICE DATE: 04/13/2019 SERVICE TIME: 1346 ASSESSMENT: SIGNATURE: Brook Sweeney LPN PATIENT NAME: Elias Shah DATE: April 13, 2019 TIME: 1:46 PM PAGER/CONTACT #: [phone] 1. 8 sec 2. 7.3 sec 3. 7.2 sec Brook RomoAMA spicer Level of Service: NEW PATIENT VISIT LEVEL 5 [47858] Letter Text Encounter Status:Closed by WAYNE RIVERS MD on 04/13/19 [facility] HISTORY PHYSICALon 9 HISTORY PHYSICAL HNO ID: [id number] Author: Wayne Rivers Service: ? Author Type: Physician Type: HANDP Filed: 04/13/2019 3:22 PM Note Text: Elias Shah is an 78 year old man referred for evaluation of symptomatic severe aortic stenosis and for consideration for SAVR versus TAVR. He was admitted to [facility] in November with acute illness due [...] had further evaluation by Dr. Ann of [place] cardiology. Left heart catheterization shows no significant [...] HERNIA 12/04/2018 after bowel perforation done at [facility] Dr. Young REVIEW OF SYSTEMS: GENERAL: Fever [...] to follow. Wayne Rivers MD . Normal [facility] Basic Metabolic Panelon 11-24 Anion gap molar conc 6 Normal [employer] Comment on above: Performed By: #### H EMDF, NH33, PT, CMP3, LIPA4, CK3, TROPN, LACT3, MDIFF, PCAL #### [facility] [employer] [place] [address] [address], [place] Calcium mass conc 8.0 mg/dL Low 8.4-10.4 [facility] Comment on above: Performed By: #### H EMDF, NH33, PT, CMP3, LIPA4, CK3, TROPN, LACT3, MDIFF, PCAL #### [place] [address] [address], [place] CO2 molar conc 26 mmol/L Normal 22-30 [facility] Comment on above: Performed By: #### H EMDF, NH33, PT, CMP3, LIPA4, CK3, TROPN, LACT3, MDIFF, PCAL #### [place] [address] [address], [place] Glucose mass conc 98 mg/dL Normal 70-100 [facility] Comment on above: Performed By: #### H EMDF, NH33, PT, CMP3, LIPA4, CK3, TROPN, LACT3, MDIFF, PCAL #### [place] [address] [address], [place] Urea nitrogen mass conc 19 mg/dL Normal 7-20 [facility] Comment on above: Performed By: #### H EMDF, NH33, PT, CMP3, LIPA4, CK3, TROPN, LACT3, MDIFF, PCAL #### [place] [address] [address], [place] Creatinine mass conc 1.19 mg/dL Normal 0.52-1.25 [facility] Comment on above: Performed By: #### H EMDF, NH33, PT, CMP3, LIPA4, CK3, TROPN, LACT3, MDIFF, PCAL #### [place] [address] [address], [place] GFR/1.73 sq M predicted among blacks MDRD vol rate/area (S/P/Bld) mL/min/{1.73_m2} Normal >60 [facility] Comment on above: Performed By: #### H EMDF, NH33, PT, CMP3, LIPA4, CK3, TROPN, LACT3, MDIFF, PCAL #### [place] [address] [place], [place] GFR/1.73 sq M predicted among non-blacks MDRD vol rate/area (S/P/Bld) 58.7 mL/min/{1.73_m2} Normal >60 [facility] Comment on above: Result Comment: Sour ce- MDRD equation with creatinine calibration to IDMS(NKDEP) eGFR not recommended for drug dose adjustment Performed By: #### H EMDF, NH33, PT, CMP3, LIPA4, CK3, TROPN, LACT3, MDIFF, PCAL #### [place] [address] [place], [place] Potassium molar conc 4.0 mmol/L Normal 3.5-5.1 [facility] Comment on above: Performed By: #### H EMDF, NH33, PT, CMP3, LIPA4, CK3, TROPN, LACT3, MDIFF, PCAL #### [place] [address] [place], [place] Chloride molar conc 107 mmol/L Normal 98-107 [facility] Comment on above: Performed By: #### H EMDF, NH33, PT, CMP3, LIPA4, CK3, TROPN, LACT3, MDIFF, PCAL #### [place] [address] [place], [place] Sodium molar conc 139 mmol/L Normal 135-145 [facility] Comment on above: Performed By: #### H EMDF, NH33, PT, CMP3, LIPA4, CK3, TROPN, LACT3, MDIFF, PCAL #### [address] Hemogram w/ [employer] 12-14 Abs Baso Cnt 0.0 10*3/uL Normal 0.0-0.2 [facility] [facility] Comment on above: Performed By: #### H EMDF, NH33, PT, CMP3, LIPA4, CK3, TROPN, LACT3, MDIFF, PCAL #### [place] [address] [place], [place] Abs Neutrophile Cnt 3.6 10*3/uL Normal 1.8-7.0 [facility] Comment on above: Performed By: #### H EMDF, NH33, PT, CMP3, LIPA4, CK3, TROPN, LACT3, MDIFF, PCAL #### [address] [id number] Basophils/100 WBC (Bld) 0.4 % Normal 0.0-2.0 [facility] Comment on above: Performed By: #### H EMDF, NH33, PT, CMP3, LIPA4, CK3, TROPN, LACT3, MDIFF, PCAL #### [address] [id number] Eosinophils #/vol (Bld) 0.1 10*3/uL Normal 0.0-0.5 [facility] Comment on above: Performed By: #### H EMDF, NH33, PT, CMP3, LIPA4, CK3, TROPN, LACT3, MDIFF, PCAL #### [address] [id number] Eosinophils/100 WBC (Bld) 1.3 % Normal 1.0-6.0 [facility] Comment on above: Performed By: #### H EMDF, NH33, PT, CMP3, LIPA4, CK3, TROPN, LACT3, MDIFF, PCAL #### [address] Erythrocyte distribution width Ratio (RBC) 15.2 % High 11.5-14.5 [facility] Comment on above: Performed By: #### H EMDF, NH33, PT, CMP3, LIPA4, CK3, TROPN, LACT3, MDIFF, PCAL #### [address] Granulocytes/100 WBC (Bld) 55.8 % Normal 40.0-80.0 [facility] Comment on above: Performed By: #### H EMDF, NH33, PT, CMP3, LIPA4, CK3, TROPN, LACT3, MDIFF, PCAL #### [address] Hematocrit Volume Fraction (Bld) 26.7 % Low 40.0-52.0 [facility] Comment on above: Performed By: #### H EMDF, NH33, PT, CMP3, LIPA4, CK3, TROPN, LACT3, MDIFF, PCAL #### [address] Hemoglobin mass conc (Bld) 8.8 g/dL Low 13.0-18.0 [facility] Comment on above: Performed By: #### H EMDF, NH33, PT, CMP3, LIPA4, CK3, TROPN, LACT3, MDIFF, PCAL #### [address] Lymphocytes #/vol (Bld) 1.9 10*3/uL Normal 1.0-4.3 [facility] Comment on above: Performed By: #### H EMDF, NH33, PT, CMP3, LIPA4, CK3, TROPN, LACT3, MDIFF, PCAL #### [address] Lymphocytes/100 WBC (Bld) 29.6 % Normal 20.0-40.0 [facility] Comment on above: Performed By: #### H EMDF, NH33, PT, CMP3, LIPA4, CK3, TROPN, LACT3, MDIFF, PCAL #### [address] MCH Entitic mass (RBC) 28.6 pg Normal 26.0-34.0 [facility] Comment on above: Performed By: #### H EMDF, NH33, PT, CMP3, LIPA4, CK3, TROPN, LACT3, MDIFF, PCAL #### [address] MCHC mass conc (RBC) 32.9 % Normal 32.0-36.0 [facility] Comment on above: Performed By: #### H EMDF, NH33, PT, CMP3, LIPA4, CK3, TROPN, LACT3, MDIFF, PCAL #### [address] MCV Entitic volume (RBC) 86.9 fL Normal 80.0-98.0 [facility] Comment on above: Performed By: #### H EMDF, NH33, PT, CMP3, LIPA4, CK3, TROPN, LACT3, MDIFF, PCAL #### [address] Monocytes #/vol (Bld) 0.8 10*3/uL Normal 0.0-0.8 [facility] Comment on above: Performed By: #### H EMDF, NH33, PT, CMP3, LIPA4, CK3, TROPN, LACT3, MDIFF, PCAL #### [address] Monocytes/100 WBC (Bld) 12.9 % High 2.0-10.0 [facility] Comment on above: Performed By: #### H EMDF, NH33, PT, CMP3, LIPA4, CK3, TROPN, LACT3, MDIFF, PCAL #### [address] Platelet mean volume Entitic volume (Bld) 8.7 fL Normal 7.4-10.4 [facility] Comment on above: Performed By: #### H EMDF, NH33, PT, CMP3, LIPA4, CK3, TROPN, LACT3, MDIFF, PCAL #### [address] Platelets #/vol (Bld) 211 10*3/uL Normal 140-440 [facility] Comment on above: Performed By: #### H EMDF, NH33, PT, CMP3, LIPA4, CK3, TROPN, LACT3, MDIFF, PCAL #### [address] RBC #/vol (Bld) 3.07 10*6/uL Low 4.40-5.90 [facility] Comment on above: Performed By: #### H EMDF, NH33, PT, CMP3, LIPA4, CK3, TROPN, LACT3, MDIFF, PCAL #### [place] [address] [place], [place] WBC #/vol (Bld) 6.4 10*3/uL Normal 3.6-10.7 [facility] Comment on above: Performed By: #### H EMDF, NH33, PT, CMP3, LIPA4, CK3, TROPN, LACT3, MDIFF, PCAL #### [place] [address] [place], [place] Basic Metabolic Panelon 01-2 Anion gap molar conc 6 Normal [facility] Comment on above: Performed By: #### H EMDF, NH33, PT, CMP3, LIPA4, CK3, TROPN, LACT3, MDIFF, PCAL #### [address] Calcium mass conc 8.0 mg/dL Low 8.4-10.4 [facility] Comment on above: Performed By: #### H EMDF, NH33, PT, CMP3, LIPA4, CK3, TROPN, LACT3, MDIFF, PCAL #### [address] CO2 molar conc 25 mmol/L Normal 22-30 [facility] Comment on above: Performed By: #### H EMDF, NH33, PT, CMP3, LIPA4, CK3, TROPN, LACT3, MDIFF, PCAL #### [address] Glucose mass conc 100 mg/dL Normal 70-100 [facility] Comment on above: Performed By: #### H EMDF, NH33, PT, CMP3, LIPA4, CK3, TROPN, LACT3, MDIFF, PCAL #### [address] Urea nitrogen mass conc 24 mg/dL High 7-20 [facility] Comment on above: Performed By: #### H EMDF, NH33, PT, CMP3, LIPA4, CK3, TROPN, LACT3, MDIFF, PCAL #### [address] Creatinine mass conc 1.35 mg/dL High 0.52-1.25 [facility] Comment on above: Performed By: #### H EMDF, NH33, PT, CMP3, LIPA4, CK3, TROPN, LACT3, MDIFF, PCAL #### [address] GFR/1.73 sq M predicted among blacks MDRD vol rate/area (S/P/Bld) mL/min/{1.73_m2} Normal >60 [facility] Comment on above: Performed By: #### H EMDF, NH33, PT, CMP3, LIPA4, CK3, TROPN, LACT3, MDIFF, PCAL #### [address] GFR/1.73 sq M predicted among non-blacks MDRD vol rate/area (S/P/Bld) 50.8 mL/min/{1.73_m2} Normal >60 [facility] Comment on above: Result Comment: Sour ce- MDRD equation with creatinine calibration to IDMS(NKDEP) eGFR not recommended for drug dose adjustment Performed By: #### H EMDF, NH33, PT, CMP3, LIPA4, CK3, TROPN, LACT3, MDIFF, PCAL #### [address] Potassium molar conc 3.6 mmol/L Normal 3.5-5.1 [facility] Comment on above: Performed By: #### H EMDF, NH33, PT, CMP3, LIPA4, CK3, TROPN, LACT3, MDIFF, PCAL #### [address] Chloride molar conc 109 mmol/L High 98-107 [facility] Comment on above: Performed By: #### H EMDF, NH33, PT, CMP3, LIPA4, CK3, TROPN, LACT3, MDIFF, PCAL #### [address] Sodium molar conc 141 mmol/L Normal 135-145 [facility] Comment on above: Performed By: #### H EMDF, NH33, PT, CMP3, LIPA4, CK3, TROPN, LACT3, MDIFF, PCAL #### [address] Hemogram w/ Autodiffon 12-13 Abs Baso Cnt 0.0 10*3/uL Normal 0.0-0.2 [facility] Comment on above: Performed By: #### H EMDF, NH33, PT, CMP3, LIPA4, CK3, TROPN, LACT3, MDIFF, PCAL #### [address] Abs Neutrophile Cnt 3.5 10*3/uL Normal 1.8-7.0 [facility] Comment on above: Performed By: #### H EMDF, NH33, PT, CMP3, LIPA4, CK3, TROPN, LACT3, MDIFF, PCAL #### [address] Basophils/100 WBC (Bld) 0.4 % Normal 0.0-2.0 [facility] Comment on above: Performed By: #### H EMDF, NH33, PT, CMP3, LIPA4, CK3, TROPN, LACT3, MDIFF, PCAL #### [address] Eosinophils #/vol (Bld) 0.1 10*3/uL Normal 0.0-0.5 [facility] Comment on above: Performed By: #### H EMDF, NH33, PT, CMP3, LIPA4, CK3, TROPN, LACT3, MDIFF, PCAL #### [address] Eosinophils/100 WBC (Bld) 2.1 % Normal 1.0-6.0 [facility] Comment on above: Performed By: #### H EMDF, NH33, PT, CMP3, LIPA4, CK3, TROPN, LACT3, MDIFF, PCAL #### [address] Erythrocyte distribution width Ratio (RBC) 14.8 % High 11.5-14.5 [facility] Comment on above: Performed By: #### H EMDF, NH33, PT, CMP3, LIPA4, CK3, TROPN, LACT3, MDIFF, PCAL #### [address] Granulocytes/100 WBC (Bld) 57.7 % Normal 40.0-80.0 [facility] Comment on above: Performed By: #### H EMDF, NH33, PT, CMP3, LIPA4, CK3, TROPN, LACT3, MDIFF, PCAL #### [address] Hematocrit Volume Fraction (Bld) 26.4 % Low 40.0-52.0 [facility] Comment on above: Performed By: #### H EMDF, NH33, PT, CMP3, LIPA4, CK3, TROPN, LACT3, MDIFF, PCAL #### [address] Hemoglobin mass conc (Bld) 8.6 g/dL Low 13.0-18.0 [facility] Comment on above: Performed By: #### H EMDF, NH33, PT, CMP3, LIPA4, CK3, TROPN, LACT3, MDIFF, PCAL #### [address] Lymphocytes #/vol (Bld) 1.7 10*3/uL Normal 1.0-4.3 [facility] Comment on above: Performed By: #### H EMDF, NH33, PT, CMP3, LIPA4, CK3, TROPN, LACT3, MDIFF, PCAL #### [address] Lymphocytes/100 WBC (Bld) 27.9 % Normal 20.0-40.0 [facility] Comment on above: Performed By: #### H EMDF, NH33, PT, CMP3, LIPA4, CK3, TROPN, LACT3, MDIFF, PCAL #### [address] MCH Entitic mass (RBC) 28.7 pg Normal 26.0-34.0 [facility] Comment on above: Performed By: #### H EMDF, NH33, PT, CMP3, LIPA4, CK3, TROPN, LACT3, MDIFF, PCAL #### [address] MCHC mass conc (RBC) 32.7 % Normal 32.0-36.0 [facility] Comment on above: Performed By: #### H EMDF, NH33, PT, CMP3, LIPA4, CK3, TROPN, LACT3, MDIFF, PCAL #### [address] MCV Entitic volume (RBC) 87.8 fL Normal 80.0-98.0 [facility] Comment on above: Performed By: #### H EMDF, NH33, PT, CMP3, LIPA4, CK3, TROPN, LACT3, MDIFF, PCAL #### [address] Monocytes #/vol (Bld) 0.7 10*3/uL Normal 0.0-0.8 [facility] Comment on above: Performed By: #### H EMDF, NH33, PT, CMP3, LIPA4, CK3, TROPN, LACT3, MDIFF, PCAL #### [address] Monocytes/100 WBC (Bld) 11.9 % High 2.0-10.0 [facility] Comment on above: Performed By: #### H EMDF, NH33, PT, CMP3, LIPA4, CK3, TROPN, LACT3, MDIFF, PCAL #### [address] Platelet mean volume Entitic volume (Bld) 8.6 fL Normal 7.4-10.4 [facility] Comment on above: Performed By: #### H EMDF, NH33, PT, CMP3, LIPA4, CK3, TROPN, LACT3, MDIFF, PCAL #### [address] Platelets #/vol (Bld) 186 10*3/uL Normal 140-440 [facility] Comment on above: Performed By: #### H EMDF, NH33, PT, CMP3, LIPA4, CK3, TROPN, LACT3, MDIFF, PCAL #### [address] RBC #/vol (Bld) 3.01 10*6/uL Low 4.40-5.90 [facility] Comment on above: Performed By: #### H EMDF, NH33, PT, CMP3, LIPA4, CK3, TROPN, LACT3, MDIFF, PCAL #### [address] WBC #/vol (Bld) 6.0 10*3/uL Normal 3.6-10.7 [facility] Comment on above: Performed By: #### H EMDF, NH33, PT, CMP3, LIPA4, CK3, TROPN, LACT3, MDIFF, PCAL #### [address] Basic Metabolic Panelon -2 Anion gap molar conc 9 Normal [facility] Comment on above: Performed By: #### H EMDF, NH33, PT, CMP3, LIPA4, CK3, TROPN, LACT3, MDIFF, PCAL #### [address] Calcium mass conc 8.2 mg/dL Low 8.4-10.4 [facility] Comment on above: Performed By: #### H EMDF, NH33, PT, CMP3, LIPA4, CK3, TROPN, LACT3, MDIFF, PCAL #### [address] CO2 molar conc 28 mmol/L Normal 22-30 [facility] Comment on above: Performed By: #### H EMDF, NH33, PT, CMP3, LIPA4, CK3, TROPN, LACT3, MDIFF, PCAL #### [facility] [address] [place], [place] Creatinine mass conc 1.43 mg/dL High 0.52-1.25 [facility] Comment on above: Performed By: #### H EMDF, NH33, PT, CMP3, LIPA4, CK3, TROPN, LACT3, MDIFF, PCAL #### [facility] [address] [place], [place] GFR/1.73 sq M predicted among blacks MDRD vol rate/area (S/P/Bld) 57.6 mL/min/{1.73_m2} Normal >60 [facility] Comment on above: Performed By: #### H EMDF, NH33, PT, CMP3, LIPA4, CK3, TROPN, LACT3, MDIFF, PCAL #### [facility] [address] [place], [place] GFR/1.73 sq M predicted among non-blacks MDRD vol rate/area (S/P/Bld) 47.5 mL/min/{1.73_m2} Normal >60 [facility] Comment on above: Result Comment: Sour ce- MDRD equation with creatinine calibration to IDMS(NKDEP) eGFR not recommended for drug dose adjustment Performed By: #### H EMDF, NH33, PT, CMP3, LIPA4, CK3, TROPN, LACT3, MDIFF, PCAL #### [facility] [address] [place], [place] Glucose mass conc 124 mg/dL High 70-100 [facility] Comment on above: Performed By: #### H EMDF, NH33, PT, CMP3, LIPA4, CK3, TROPN, LACT3, MDIFF, PCAL #### [facility] [address] [place], [place] Urea nitrogen mass conc 30 mg/dL High 7-20 [facility] Comment on above: Performed By: #### H EMDF, NH33, PT, CMP3, LIPA4, CK3, TROPN, LACT3, MDIFF, PCAL #### [place] [address] [address] [place], [place] Chloride molar conc 107 mmol/L Normal 98-107 [facility] Comment on above: Performed By: #### H EMDF, NH33, PT, CMP3, LIPA4, CK3, TROPN, LACT3, MDIFF, PCAL #### [address] [place] [address] [place], [place] Potassium molar conc 3.4 mmol/L Low 3.5-5.1 [facility] Comment on above: Performed By: #### H EMDF, NH33, PT, CMP3, LIPA4, CK3, TROPN, LACT3, MDIFF, PCAL #### [place] [address] [place], [place] Sodium molar conc 144 mmol/L Normal 135-145 [facility] Comment on above: Performed By: #### H EMDF, NH33, PT, CMP3, LIPA4, CK3, TROPN, LACT3, MDIFF, PCAL #### [address] Hemogram w/ Autodiffon 12-12 Abs Baso Cnt 0.0 10*3/uL Normal 0.0-0.2 [facility] Comment on above: Performed By: #### H EMDF, NH33, PT, CMP3, LIPA4, CK3, TROPN, LACT3, MDIFF, PCAL #### [place] [address] [place], [place] Abs Neutrophile Cnt 4.5 10*3/uL Normal 1.8-7.0 [facility] Comment on above: Performed By: #### H EMDF, NH33, PT, CMP3, LIPA4, CK3, TROPN, LACT3, MDIFF, PCAL #### [address] Basophils/100 WBC (Bld) 0.3 % Normal 0.0-2.0 [facility] Comment on above: Performed By: #### H EMDF, NH33, PT, CMP3, LIPA4, CK3, TROPN, LACT3, MDIFF, PCAL #### [address] Eosinophils #/vol (Bld) 0.2 10*3/uL Normal 0.0-0.5 [facility] Comment on above: Performed By: #### H EMDF, NH33, PT, CMP3, LIPA4, CK3, TROPN, LACT3, MDIFF, PCAL #### [address] Eosinophils/100 WBC (Bld) 2.3 % Normal 1.0-6.0 [facility] Comment on above: Performed By: #### H EMDF, NH33, PT, CMP3, LIPA4, CK3, TROPN, LACT3, MDIFF, PCAL #### [address] Erythrocyte distribution width Ratio (RBC) 15.0 % High 11.5-14.5 [facility] Comment on above: Performed By: #### H EMDF, NH33, PT, CMP3, LIPA4, CK3, TROPN, LACT3, MDIFF, PCAL #### [address] Granulocytes/100 WBC (Bld) 62.5 % Normal 40.0-80.0 [facility] Comment on above: Performed By: #### H EMDF, NH33, PT, CMP3, LIPA4, CK3, TROPN, LACT3, MDIFF, PCAL #### [address] Hematocrit Volume Fraction (Bld) 29.8 % Low 40.0-52.0 [facility] Comment on above: Performed By: #### H EMDF, NH33, PT, CMP3, LIPA4, CK3, TROPN, LACT3, MDIFF, PCAL #### [address] Hemoglobin mass conc (Bld) 10.0 g/dL Low 13.0-18.0 [facility] Comment on above: Performed By: #### H EMDF, NH33, PT, CMP3, LIPA4, CK3, TROPN, LACT3, MDIFF, PCAL #### [address] Lymphocytes #/vol (Bld) 1.8 10*3/uL Normal 1.0-4.3 [facility] Comment on above: Performed By: #### H EMDF, NH33, PT, CMP3, LIPA4, CK3, TROPN, LACT3, MDIFF, PCAL #### [address] Lymphocytes/100 WBC (Bld) 25.1 % Normal 20.0-40.0 [facility] Comment on above: Performed By: #### H EMDF, NH33, PT, CMP3, LIPA4, CK3, TROPN, LACT3, MDIFF, PCAL #### [place] [address] [place], [place] MCH Entitic mass (RBC) 29.0 pg Normal 26.0-34.0 [facility] Comment on above: Performed By: #### H EMDF, NH33, PT, CMP3, LIPA4, CK3, TROPN, LACT3, MDIFF, PCAL #### [place] [address] [place], [place] MCHC mass conc (RBC) 33.4 % Normal 32.0-36.0 [facility] Comment on above: Performed By: #### H EMDF, NH33, PT, CMP3, LIPA4, CK3, TROPN, LACT3, MDIFF, PCAL #### [address] MCV Entitic volume (RBC) 86.8 fL Normal 80.0-98.0 [facility] Comment on above: Performed By: #### H EMDF, NH33, PT, CMP3, LIPA4, CK3, TROPN, LACT3, MDIFF, PCAL #### [place] [address] [address] [place], [place] Monocytes #/vol (Bld) 0.7 10*3/uL Normal 0.0-0.8 [facility] Comment on above: Performed By: #### H EMDF, NH33, PT, CMP3, LIPA4, CK3, TROPN, LACT3, MDIFF, PCAL #### [place] [address] [place], [place] Monocytes/100 WBC (Bld) 9.8 % Normal 2.0-10.0 [facility] Comment on above: Performed By: #### H EMDF, NH33, PT, CMP3, LIPA4, CK3, TROPN, LACT3, MDIFF, PCAL #### [address] Platelet mean volume Entitic volume (Bld) 8.6 fL Normal 7.4-10.4 [facility] Comment on above: Performed By: #### H EMDF, NH33, PT, CMP3, LIPA4, CK3, TROPN, LACT3, MDIFF, PCAL #### [address] Platelets #/vol (Bld) 216 10*3/uL Normal 140-440 [facility] Comment on above: Performed By: #### H EMDF, NH33, PT, CMP3, LIPA4, CK3, TROPN, LACT3, MDIFF, PCAL #### [place] [address] [place], [place] RBC #/vol (Bld) 3.43 10*6/uL Low 4.40-5.90 [facility] Comment on above: Performed By: #### H EMDF, NH33, PT, CMP3, LIPA4, CK3, TROPN, LACT3, MDIFF, PCAL #### [address] WBC #/vol (Bld) 7.2 10*3/uL Normal 3.6-10.7 [facility] Comment on above: Performed By: #### H EMDF, NH33, PT, CMP3, LIPA4, CK3, TROPN, LACT3, MDIFF, PCAL #### [address] Magnesiumon 12-12-2018 Magnesium mass conc 1.8 mg/dL Normal 1.6-2.3 [facility] Comment on above: Performed By: #### H EMDF, NH33, PT, CMP3, LIPA4, CK3, TROPN, LACT3, MDIFF, PCAL #### [address] Basic Metabolic Panelon 11-23 Anion gap molar conc 6 Normal [facility] Comment on above: Performed By: #### H EMDF, NH33, PT, CMP3, LIPA4, CK3, TROPN, LACT3, MDIFF, PCAL #### [address] Calcium mass conc 8.1 mg/dL Low 8.4-10.4 [facility] Comment on above: Performed By: #### H EMDF, NH33, PT, CMP3, LIPA4, CK3, TROPN, LACT3, MDIFF, PCAL #### [place] [address] [place], [place] CO2 molar conc 26 mmol/L Normal 22-30 [facility] Comment on above: Performed By: #### H EMDF, NH33, PT, CMP3, LIPA4, CK3, TROPN, LACT3, MDIFF, PCAL #### [address] Glucose mass conc 95 mg/dL Normal 70-100 [facility] Comment on above: Performed By: #### H EMDF, NH33, PT, CMP3, LIPA4, CK3, TROPN, LACT3, MDIFF, PCAL #### [address] Urea nitrogen mass conc 33 mg/dL High 7-20 [facility] Comment on above: Performed By: #### H EMDF, NH33, PT, CMP3, LIPA4, CK3, TROPN, LACT3, MDIFF, PCAL #### [address] Creatinine mass conc 1.52 mg/dL High 0.52-1.25 [facility] Comment on above: Performed By: #### H EMDF, NH33, PT, CMP3, LIPA4, CK3, TROPN, LACT3, MDIFF, PCAL #### [address] GFR/1.73 sq M predicted among blacks MDRD vol rate/area (S/P/Bld) 53.7 mL/min/{1.73_m2} Normal >60 [facility] Comment on above: Performed By: #### H EMDF, NH33, PT, CMP3, LIPA4, CK3, TROPN, LACT3, MDIFF, PCAL #### [address] GFR/1.73 sq M predicted among non-blacks MDRD vol rate/area (S/P/Bld) 44.3 mL/min/{1.73_m2} Normal >60 [facility] Comment on above: Result Comment: Sour ce- MDRD equation with creatinine calibration to IDMS(NKDEP) eGFR not recommended for drug dose adjustment Performed By: #### H EMDF, NH33, PT, CMP3, LIPA4, CK3, TROPN, LACT3, MDIFF, PCAL #### [address] Potassium molar conc 3.5 mmol/L Normal 3.5-5.1 [facility] Comment on above: Performed By: #### H EMDF, NH33, PT, CMP3, LIPA4, CK3, TROPN, LACT3, MDIFF, PCAL #### [address] Sodium molar conc 142 mmol/L Normal 135-145 [facility] Comment on above: Performed By: #### H EMDF, NH33, PT, CMP3, LIPA4, CK3, TROPN, LACT3, MDIFF, PCAL #### [place] [address] [place], [place] Chloride molar conc 109 mmol/L High 98-107 [facility] Comment on above: Performed By: #### H EMDF, NH33, PT, CMP3, LIPA4, CK3, TROPN, LACT3, MDIFF, PCAL #### [address] Hemogram w/ Autodiffon 12-11 Abs Baso Cnt 0.0 10*3/uL Normal 0.0-0.2 [facility] Comment on above: Performed By: #### H EMDF, NH33, PT, CMP3, LIPA4, CK3, TROPN, LACT3, MDIFF, PCAL #### [address] Abs Neutrophile Cnt 4.5 10*3/uL Normal 1.8-7.0 [facility] Comment on above: Performed By: #### H EMDF, NH33, PT, CMP3, LIPA4, CK3, TROPN, LACT3, MDIFF, PCAL #### [address] Basophils/100 WBC (Bld) 0.3 % Normal 0.0-2.0 [facility] Comment on above: Performed By: #### H EMDF, NH33, PT, CMP3, LIPA4, CK3, TROPN, LACT3, MDIFF, PCAL #### [place] [address] [place], [place] Eosinophils #/vol (Bld) 0.2 10*3/uL Normal 0.0-0.5 [facility] Comment on above: Performed By: #### H EMDF, NH33, PT, CMP3, LIPA4, CK3, TROPN, LACT3, MDIFF, PCAL #### [address] Eosinophils/100 WBC (Bld) 2.9 % Normal 1.0-6.0 [facility] Comment on above: Performed By: #### H EMDF, NH33, PT, CMP3, LIPA4, CK3, TROPN, LACT3, MDIFF, PCAL #### [address] Erythrocyte distribution width Ratio (RBC) 15.1 % High 11.5-14.5 [facility] Comment on above: Performed By: #### H EMDF, NH33, PT, CMP3, LIPA4, CK3, TROPN, LACT3, MDIFF, PCAL #### [address] Granulocytes/100 WBC (Bld) 60.8 % Normal 40.0-80.0 [facility] Comment on above: Performed By: #### H EMDF, NH33, PT, CMP3, LIPA4, CK3, TROPN, LACT3, MDIFF, PCAL #### [address] Hematocrit Volume Fraction (Bld) 27.2 % Low 40.0-52.0 [facility] Comment on above: Performed By: #### H EMDF, NH33, PT, CMP3, LIPA4, CK3, TROPN, LACT3, MDIFF, PCAL #### [address] Hemoglobin mass conc (Bld) 9.1 g/dL Low 13.0-18.0 [facility] Comment on above: Performed By: #### H EMDF, NH33, PT, CMP3, LIPA4, CK3, TROPN, LACT3, MDIFF, PCAL #### [address] Lymphocytes #/vol (Bld) 1.7 10*3/uL Normal 1.0-4.3 [facility] Comment on above: Performed By: #### H EMDF, NH33, PT, CMP3, LIPA4, CK3, TROPN, LACT3, MDIFF, PCAL #### [address] Lymphocytes/100 WBC (Bld) 22.8 % Normal 20.0-40.0 [facility] Comment on above: Performed By: #### H EMDF, NH33, PT, CMP3, LIPA4, CK3, TROPN, LACT3, MDIFF, PCAL #### [address] MCH Entitic mass (RBC) 28.9 pg Normal 26.0-34.0 [facility] Comment on above: Performed By: #### H EMDF, NH33, PT, CMP3, LIPA4, CK3, TROPN, LACT3, MDIFF, PCAL #### [address] MCHC mass conc (RBC) 33.3 % Normal 32.0-36.0 [facility] Comment on above: Performed By: #### H EMDF, NH33, PT, CMP3, LIPA4, CK3, TROPN, LACT3, MDIFF, PCAL #### [address] MCV Entitic volume (RBC) 86.8 fL Normal 80.0-98.0 [facility] Comment on above: Performed By: #### H EMDF, NH33, PT, CMP3, LIPA4, CK3, TROPN, LACT3, MDIFF, PCAL #### [address] Monocytes #/vol (Bld) 1.0 10*3/uL High 0.0-0.8 [facility] Comment on above: Performed By: #### H EMDF, NH33, PT, CMP3, LIPA4, CK3, TROPN, LACT3, MDIFF, PCAL #### [address] Monocytes/100 WBC (Bld) 13.2 % High 2.0-10.0 [facility] Comment on above: Performed By: #### H EMDF, NH33, PT, CMP3, LIPA4, CK3, TROPN, LACT3, MDIFF, PCAL #### [address] Platelet mean volume Entitic volume (Bld) 8.5 fL Normal 7.4-10.4 [facility] Comment on above: Performed By: #### H EMDF, NH33, PT, CMP3, LIPA4, CK3, TROPN, LACT3, MDIFF, PCAL #### [address] Platelets #/vol (Bld) 185 10*3/uL Normal 140-440 [facility] Comment on above: Performed By: #### H EMDF, NH33, PT, CMP3, LIPA4, CK3, TROPN, LACT3, MDIFF, PCAL #### [address] RBC #/vol (Bld) 3.14 10*6/uL Low 4.40-5.90 [facility] Comment on above: Performed By: #### H EMDF, NH33, PT, CMP3, LIPA4, CK3, TROPN, LACT3, MDIFF, PCAL #### [address] WBC #/vol (Bld) 7.4 10*3/uL Normal 3.6-10.7 [facility] Comment on above: Performed By: #### H EMDF, NH33, PT, CMP3, LIPA4, CK3, TROPN, LACT3, MDIFF, PCAL #### [address] Magnesiumon 12-11-2018 Magnesium mass conc 1.8 mg/dL Normal 1.6-2.3 [facility] Comment on above: Performed By: #### H EMDF, NH33, PT, CMP3, LIPA4, CK3, TROPN, LACT3, MDIFF, PCAL #### [address] Basic Metabolic Panelon 11-23 Anion gap molar conc 5 Normal [facility] Comment on above: Performed By: #### H EMDF, NH33, PT, CMP3, LIPA4, CK3, TROPN, LACT3, MDIFF, PCAL #### [place] [address] [address] [place], [place] Calcium mass conc 8.3 mg/dL Low 8.4-10.4 [facility] Comment on above: Performed By: #### H EMDF, NH33, PT, CMP3, LIPA4, CK3, TROPN, LACT3, MDIFF, PCAL #### [place] [address] [place], [place] CO2 molar conc 29 mmol/L Normal 22-30 [facility] Comment on above: Performed By: #### H EMDF, NH33, PT, CMP3, LIPA4, CK3, TROPN, LACT3, MDIFF, PCAL #### [place] [address] [place], [place] Glucose mass conc 111 mg/dL High 70-100 [facility] Comment on above: Performed By: #### H EMDF, NH33, PT, CMP3, LIPA4, CK3, TROPN, LACT3, MDIFF, PCAL #### [place] [address] [address] [place], [place] Urea nitrogen mass conc 30 mg/dL High 7-20 [facility] Comment on above: Performed By: #### H EMDF, NH33, PT, CMP3, LIPA4, CK3, TROPN, LACT3, MDIFF, PCAL #### [place] [address] [place], [place] Creatinine mass conc 1.40 mg/dL High 0.52-1.25 [facility] Comment on above: Performed By: #### H EMDF, NH33, PT, CMP3, LIPA4, CK3, TROPN, LACT3, MDIFF, PCAL #### [place] [address] [place], [place] GFR/1.73 sq M predicted among blacks MDRD vol rate/area (S/P/Bld) 59.0 mL/min/{1.73_m2} Normal >60 [facility] Comment on above: Performed By: #### H EMDF, NH33, PT, CMP3, LIPA4, CK3, TROPN, LACT3, MDIFF, PCAL #### [place] [address] [place], [place] GFR/1.73 sq M predicted among non-blacks MDRD vol rate/area (S/P/Bld) 48.7 mL/min/{1.73_m2} Normal >60 [facility] Comment on above: Result Comment: Sour ce- MDRD equation with creatinine calibration to IDMS(NKDEP) eGFR not recommended for drug dose adjustment Performed By: #### H EMDF, NH33, PT, CMP3, LIPA4, CK3, TROPN, LACT3, MDIFF, PCAL #### [place] [address] [place], [place] Chloride molar conc 107 mmol/L Normal 98-107 [facility] Comment on above: Performed By: #### H EMDF, NH33, PT, CMP3, LIPA4, CK3, TROPN, LACT3, MDIFF, PCAL #### [place] [address] [place], [place] Potassium molar conc 3.5 mmol/L Normal 3.5-5.1 [facility] Comment on above: Performed By: #### H EMDF, NH33, PT, CMP3, LIPA4, CK3, TROPN, LACT3, MDIFF, PCAL #### [address] Sodium molar conc 141 mmol/L Normal 135-145 [facility] Comment on above: Performed By: #### H EMDF, NH33, PT, CMP3, LIPA4, CK3, TROPN, LACT3, MDIFF, PCAL #### [address] Hemogram w/ Autodiffon 12-10 Abs Baso Cnt 0.0 10*3/uL Normal 0.0-0.2 [facility] Comment on above: Performed By: #### H EMDF, NH33, PT, CMP3, LIPA4, CK3, TROPN, LACT3, MDIFF, PCAL #### [place] [address] [place] Abs Neutrophile Cnt 4.7 10*3/uL Normal 1.8-7.0 [facility] Comment on above: Performed By: #### H EMDF, NH33, PT, CMP3, LIPA4, CK3, TROPN, LACT3, MDIFF, PCAL #### [place] [address] [place], [place] Basophils/100 WBC (Bld) 0.5 % Normal 0.0-2.0 [facility] Comment on above: Performed By: #### H EMDF, NH33, PT, CMP3, LIPA4, CK3, TROPN, LACT3, MDIFF, PCAL #### [address] Eosinophils #/vol (Bld) 0.3 10*3/uL Normal 0.0-0.5 [facility] Comment on above: Performed By: #### H EMDF, NH33, PT, CMP3, LIPA4, CK3, TROPN, LACT3, MDIFF, PCAL #### [address] Eosinophils/100 WBC (Bld) 3.7 % Normal 1.0-6.0 [facility] Comment on above: Performed By: #### H EMDF, NH33, PT, CMP3, LIPA4, CK3, TROPN, LACT3, MDIFF, PCAL #### [address] Erythrocyte distribution width Ratio (RBC) 15.1 % High 11.5-14.5 [facility] Comment on above: Performed By: #### H EMDF, NH33, PT, CMP3, LIPA4, CK3, TROPN, LACT3, MDIFF, PCAL #### [address] Granulocytes/100 WBC (Bld) 57.9 % Normal 40.0-80.0 [facility] Comment on above: Performed By: #### H EMDF, NH33, PT, CMP3, LIPA4, CK3, TROPN, LACT3, MDIFF, PCAL #### [address] Hematocrit Volume Fraction (Bld) 31.4 % Low 40.0-52.0 [facility] Comment on above: Performed By: #### H EMDF, NH33, PT, CMP3, LIPA4, CK3, TROPN, LACT3, MDIFF, PCAL #### [address] Hemoglobin mass conc (Bld) 10.4 g/dL Low 13.0-18.0 [facility] Comment on above: Performed By: #### H EMDF, NH33, PT, CMP3, LIPA4, CK3, TROPN, LACT3, MDIFF, PCAL #### [address] Lymphocytes #/vol (Bld) 1.9 10*3/uL Normal 1.0-4.3 [facility] Comment on above: Performed By: #### H EMDF, NH33, PT, CMP3, LIPA4, CK3, TROPN, LACT3, MDIFF, PCAL #### [address] Lymphocytes/100 WBC (Bld) 23.1 % Normal 20.0-40.0 [facility] Comment on above: Performed By: #### H EMDF, NH33, PT, CMP3, LIPA4, CK3, TROPN, LACT3, MDIFF, PCAL #### [address] MCH Entitic mass (RBC) 28.7 pg Normal 26.0-34.0 [facility] Comment on above: Performed By: #### H EMDF, NH33, PT, CMP3, LIPA4, CK3, TROPN, LACT3, MDIFF, PCAL #### [address] MCHC mass conc (RBC) 33.0 % Normal 32.0-36.0 [facility] Comment on above: Performed By: #### H EMDF, NH33, PT, CMP3, LIPA4, CK3, TROPN, LACT3, MDIFF, PCAL #### [place] [address] [place], [place] MCV Entitic volume (RBC) 86.9 fL Normal 80.0-98.0 [facility] Comment on above: Performed By: #### H EMDF, NH33, PT, CMP3, LIPA4, CK3, TROPN, LACT3, MDIFF, PCAL #### [place] [address] [place], [place] Monocytes #/vol (Bld) 1.2 10*3/uL High 0.0-0.8 [facility] Comment on above: Performed By: #### H EMDF, NH33, PT, CMP3, LIPA4, CK3, TROPN, LACT3, MDIFF, PCAL #### [address] Monocytes/100 WBC (Bld) 14.8 % High 2.0-10.0 [facility] Comment on above: Performed By: #### H EMDF, NH33, PT, CMP3, LIPA4, CK3, TROPN, LACT3, MDIFF, PCAL #### [address] Platelet mean volume Entitic volume (Bld) 8.6 fL Normal 7.4-10.4 [facility] Comment on above: Performed By: #### H EMDF, NH33, PT, CMP3, LIPA4, CK3, TROPN, LACT3, MDIFF, PCAL #### [address] Platelets #/vol (Bld) 206 10*3/uL Normal 140-440 [facility] Comment on above: Performed By: #### H EMDF, NH33, PT, CMP3, LIPA4, CK3, TROPN, LACT3, MDIFF, PCAL #### [address] RBC #/vol (Bld) 3.61 10*6/uL Low 4.40-5.90 [facility] Comment on above: Performed By: #### H EMDF, NH33, PT, CMP3, LIPA4, CK3, TROPN, LACT3, MDIFF, PCAL #### [place] [address] [address] [place], [place] WBC #/vol (Bld) 8.1 10*3/uL Normal 3.6-10.7 [facility] Comment on above: Performed By: #### H EMDF, NH33, PT, CMP3, LIPA4, CK3, TROPN, LACT3, MDIFF, PCAL #### [place] [address] [address] [place], [place] Magnesiumon 12-10-2018 Magnesium mass conc 1.9 mg/dL Normal 1.6-2.3 [facility] Comment on above: Performed By: #### H EMDF, NH33, PT, CMP3, LIPA4, CK3, TROPN, LACT3, MDIFF, PCAL #### [place] [address] [place], [place] Basic Metabolic Panelon 11-23 Calcium mass conc 8.0 mg/dL Low 8.4-10.4 [facility] Comment on above: Performed By: #### H EMDF, NH33, PT, CMP3, LIPA4, CK3, TROPN, LACT3, MDIFF, PCAL #### [place] [address] [address] [place], [place] Glucose mass conc 128 mg/dL High 70-100 [facility] Comment on above: Performed By: #### H EMDF, NH33, PT, CMP3, LIPA4, CK3, TROPN, LACT3, MDIFF, PCAL #### [address] Anion gap molar conc 5 Normal [facility] Comment on above: Performed By: #### H EMDF, NH33, PT, CMP3, LIPA4, CK3, TROPN, LACT3, MDIFF, PCAL #### [place] [address] [place], [place] CO2 molar conc 33 mmol/L High 22-30 [facility] Comment on above: Performed By: #### H EMDF, NH33, PT, CMP3, LIPA4, CK3, TROPN, LACT3, MDIFF, PCAL #### [address] Creatinine mass conc 1.43 mg/dL High 0.52-1.25 [facility] Comment on above: Performed By: #### H EMDF, NH33, PT, CMP3, LIPA4, CK3, TROPN, LACT3, MDIFF, PCAL #### [address] [place] [address] [place] [address] GFR/1.73 sq M predicted among blacks MDRD vol rate/area (S/P/Bld) 57.6 mL/min/{1.73_m2} Normal >60 [facility] Comment on above: Performed By: #### H EMDF, NH33, PT, CMP3, LIPA4, CK3, TROPN, LACT3, MDIFF, PCAL #### [address] GFR/1.73 sq M predicted among non-blacks MDRD vol rate/area (S/P/Bld) 47.5 mL/min/{1.73_m2} Normal >60 [facility] Comment on above: Result Comment: Sour ce- MDRD equation with creatinine calibration to IDMS(NKDEP) eGFR not recommended for drug dose adjustment Performed By: #### H EMDF, NH33, PT, CMP3, LIPA4, CK3, TROPN, LACT3, MDIFF, PCAL #### [address] Urea nitrogen mass conc 37 mg/dL High 7-20 S [facility] Comment on above: Performed By: #### H EMDF, NH33, PT, CMP3, LIPA4, CK3, TROPN, LACT3, MDIFF, PCAL #### [address] [id number] Potassium molar conc 3.3 mmol/L Low 3.5-5.1 [facility] Comment on above: Performed By: #### H EMDF, NH33, PT, CMP3, LIPA4, CK3, TROPN, LACT3, MDIFF, PCAL #### [facility] [address] [place] [address] Chloride molar conc 107 mmol/L Normal 98-107 [facility] Comment on above: Performed By: #### H EMDF, NH33, PT, CMP3, LIPA4, CK3, TROPN, LACT3, MDIFF, PCAL #### [facility] [address] [place] [address] Sodium molar conc 144 mmol/L Normal 135-145 [facility] Comment on above: Performed By: #### H EMDF, NH33, PT, CMP3, LIPA4, CK3, TROPN, LACT3, MDIFF, PCAL #### [facility] [address] [place] [address] CR Abdomen APon 12-09-2018 CR Abdomen AP Patient Name: ELIAS SHAH Diagnostic Radiology Exam Date/Time 12/09/2018 08:27:17 EST Exam CR Abdomen AP Ordering Physician JIM MILLER Accession Number [id number] CPT4 Codes 10432 () Reason For Exam ileus Report Indication: [...] Abs Baso Cnt 0.0 10*3/uL Normal 0.0-0.2 [facility] Comment on above: Performed By: #### H EMDF, NH33, PT, CMP3, LIPA4, CK3, TROPN, LACT3, MDIFF, PCAL #### [address] Abs Neutrophile Cnt 4.0 10*3/uL Normal 1.8-7.0 [facility] Comment on above: Performed By: #### H EMDF, NH33, PT, CMP3, LIPA4, CK3, TROPN, LACT3, MDIFF, PCAL #### [address] Basophils/100 WBC (Bld) 0.2 % Normal 0.0-2.0 [facility] Comment on above: Performed By: #### H EMDF, NH33, PT, CMP3, LIPA4, CK3, TROPN, LACT3, MDIFF, PCAL #### [address] Eosinophils #/vol (Bld) 0.2 10*3/uL Normal 0.0-0.5 [facility] Comment on above: Performed By: #### H EMDF, NH33, PT, CMP3, LIPA4, CK3, TROPN, LACT3, MDIFF, PCAL #### [address] Eosinophils/100 WBC (Bld) 2.9 % Normal 1.0-6.0 [facility] Comment on above: Performed By: #### H EMDF, NH33, PT, CMP3, LIPA4, CK3, TROPN, LACT3, MDIFF, PCAL #### [address] Erythrocyte distribution width Ratio (RBC) 15.4 % High 11.5-14.5 [facility] Comment on above: Performed By: #### H EMDF, NH33, PT, CMP3, LIPA4, CK3, TROPN, LACT3, MDIFF, PCAL #### [address] Granulocytes/100 WBC (Bld) 55.9 % Normal 40.0-80.0 [facility] Comment on above: Performed By: #### H EMDF, NH33, PT, CMP3, LIPA4, CK3, TROPN, LACT3, MDIFF, PCAL #### [address] Hematocrit Volume Fraction (Bld) 28.7 % Low 40.0-52.0 [facility] Comment on above: Performed By: #### H EMDF, NH33, PT, CMP3, LIPA4, CK3, TROPN, LACT3, MDIFF, PCAL #### [address] Hemoglobin mass conc (Bld) 9.4 g/dL Low 13.0-18.0 [facility] Comment on above: Performed By: #### H EMDF, NH33, PT, CMP3, LIPA4, CK3, TROPN, LACT3, MDIFF, PCAL #### [address] Lymphocytes #/vol (Bld) 1.6 10*3/uL Normal 1.0-4.3 [facility] Comment on above: Performed By: #### H EMDF, NH33, PT, CMP3, LIPA4, CK3, TROPN, LACT3, MDIFF, PCAL #### [address] Lymphocytes/100 WBC (Bld) 23.2 % Normal 20.0-40.0 [facility] Comment on above: Performed By: #### H EMDF, NH33, PT, CMP3, LIPA4, CK3, TROPN, LACT3, MDIFF, PCAL #### [address] MCH Entitic mass (RBC) 28.6 pg Normal 26.0-34.0 [facility] Comment on above: Performed By: #### H EMDF, NH33, PT, CMP3, LIPA4, CK3, TROPN, LACT3, MDIFF, PCAL #### [address] MCHC mass conc (RBC) 32.8 % Normal 32.0-36.0 [facility] Comment on above: Performed By: #### H EMDF, NH33, PT, CMP3, LIPA4, CK3, TROPN, LACT3, MDIFF, PCAL #### [address] MCV Entitic volume (RBC) 87.1 fL Normal 80.0-98.0 [facility] Comment on above: Performed By: #### H EMDF, NH33, PT, CMP3, LIPA4, CK3, TROPN, LACT3, MDIFF, PCAL #### [address] Monocytes #/vol (Bld) 1.3 10*3/uL High 0.0-0.8 [facility] Comment on above: Performed By: #### H EMDF, NH33, PT, CMP3, LIPA4, CK3, TROPN, LACT3, MDIFF, PCAL #### [address] Monocytes/100 WBC (Bld) 17.8 % High 2.0-10.0 [facility] Comment on above: Performed By: #### H EMDF, NH33, PT, CMP3, LIPA4, CK3, TROPN, LACT3, MDIFF, PCAL #### [address] Platelet mean volume Entitic volume (Bld) 8.8 fL Normal 7.4-10.4 [facility] Comment on above: Performed By: #### H EMDF, NH33, PT, CMP3, LIPA4, CK3, TROPN, LACT3, MDIFF, PCAL #### [address] Platelets #/vol (Bld) 179 10*3/uL Normal 140-440 [facility] Comment on above: Performed By: #### H EMDF, NH33, PT, CMP3, LIPA4, CK3, TROPN, LACT3, MDIFF, PCAL #### [place] [address] [place], [place] RBC #/vol (Bld) 3.30 10*6/uL Low 4.40-5.90 [facility] Comment on above: Performed By: #### H EMDF, NH33, PT, CMP3, LIPA4, CK3, TROPN, LACT3, MDIFF, PCAL #### [address] WBC #/vol (Bld) 7.1 10*3/uL Normal 3.6-10.7 [facility] Comment on above: Performed By: #### H EMDF, NH33, PT, CMP3, LIPA4, CK3, TROPN, LACT3, MDIFF, PCAL #### [address] Magnesiumon 12-09-2018 Magnesium mass conc 2.1 mg/dL Normal 1.6-2.3 [facility] Comment on above: Performed By: #### H EMDF, NH33, PT, CMP3, LIPA4, CK3, TROPN, LACT3, MDIFF, PCAL #### [address] Phosphoruson 12-09-2018 Phosphate mass conc 2.7 mg/dL Normal 2.5-4.5 [facility] Comment on above: Performed By: #### H EMDF, NH33, PT, CMP3, LIPA4, CK3, TROPN, LACT3, MDIFF, PCAL #### [address] Uric Acidon 12-09-2018 Urate mass conc 5.7 mg/dL Normal 2.5-8.5 [facility] Comment on above: Performed By: #### H EMDF, NH33, PT, CMP3, LIPA4, CK3, TROPN, LACT3, MDIFF, PCAL #### [place] [address] [address] [place], [place] Basic Metabolic Panelon 11-23 Calcium mass conc 8.5 mg/dL Normal 8.4-10.4 [facility] Comment on above: Performed By: #### H EMDF, NH33, PT, CMP3, LIPA4, CK3, TROPN, LACT3, MDIFF, PCAL #### [place] [address] [address] [place], [place] Glucose mass conc 83 mg/dL Normal 70-100 [facility] Comment on above: Performed By: #### H EMDF, NH33, PT, CMP3, LIPA4, CK3, TROPN, LACT3, MDIFF, PCAL #### [place] [address] [place], [place] Urea nitrogen mass conc 53 mg/dL High 7-20 S [facility] Comment on above: Performed By: #### H EMDF, NH33, PT, CMP3, LIPA4, CK3, TROPN, LACT3, MDIFF, PCAL #### [place] [address] [address] [place], [place] Anion gap molar conc 6 Normal [facility] Comment on above: Performed By: #### H EMDF, NH33, PT, CMP3, LIPA4, CK3, TROPN, LACT3, MDIFF, PCAL #### [place] [address] [place], [place] CO2 molar conc 34 mmol/L High 22-30 [facility] Comment on above: Performed By: #### H EMDF, NH33, PT, CMP3, LIPA4, CK3, TROPN, LACT3, MDIFF, PCAL #### [place] [address] [place], [place] Creatinine mass conc 1.81 mg/dL High 0.52-1.25 [facility] Comment on above: Performed By: #### H EMDF, NH33, PT, CMP3, LIPA4, CK3, TROPN, LACT3, MDIFF, PCAL #### [place] [address] [place], [place] GFR/1.73 sq M predicted among blacks MDRD vol rate/area (S/P/Bld) 43.9 mL/min/{1.73_m2} Normal >60 [facility] Comment on above: Performed By: #### H EMDF, NH33, PT, CMP3, LIPA4, CK3, TROPN, LACT3, MDIFF, PCAL #### [address] GFR/1.73 sq M predicted among non-blacks MDRD vol rate/area (S/P/Bld) 36.2 mL/min/{1.73_m2} Normal >60 [facility] Comment on above: Result Comment: Sour ce- MDRD equation with creatinine calibration to IDMS(NKDEP) eGFR not recommended for drug dose adjustment Performed By: #### H EMDF, NH33, PT, CMP3, LIPA4, CK3, TROPN, LACT3, MDIFF, PCAL #### [address] Potassium molar conc 3.3 mmol/L Low 3.5-5.1 [facility] Comment on above: Performed By: #### H EMDF, NH33, PT, CMP3, LIPA4, CK3, TROPN, LACT3, MDIFF, PCAL #### [address] Chloride molar conc 105 mmol/L Normal 98-107 [facility] Comment on above: Performed By: #### H EMDF, NH33, PT, CMP3, LIPA4, CK3, TROPN, LACT3, MDIFF, PCAL #### [address] Sodium molar conc 145 mmol/L Normal 135-145 [facility] Comment on above: Performed By: #### H EMDF, NH33, PT, CMP3, LIPA4, CK3, TROPN, LACT3, MDIFF, PCAL #### [address] CR Abdomen APon 12-08-2018 CR Abdomen AP Patient Name: ELIAS SHAH Diagnostic Radiology Exam Date/Time 12/08/2018 09:33:11 EST Exam CR Abdomen AP Ordering Physician JIM MILLER Accession Number [id number] CPT4 Codes 89285 () Reason For Exam ileus Report Indication: Possible ileus. Supine view of the abdomen and pelvis timed 0924 was obtained with no prior studies available for comparison. [place] overlie the midline of the lower abdomen. [...] Transcribed Date and Time: 12/08/2018 10:18 Normal [facility] CR Chest Portableon 12-08-19 CR Chest Portable Patient Name: ELIAS SHAH Diagnostic Radiology Exam Date/Time 12/08/2018 06:59:28 EST Exam CR Chest Portable Ordering Physician KEE GARNICA HEATHER Accession Number [id number] CPT4 Codes 32104 () Reason For Exam pna Report EXAM [...] Transcribed Date and Time: 12/08/2018 7:10 Normal [facility] Hemogram w/ Autodiffon 12-08 Erythrocyte distribution width Ratio (RBC) 15.0 % High 11.5-14.5 [facility] Comment on above: Performed By: #### H EMDF, NH33, PT, CMP3, LIPA4, CK3, TROPN, LACT3, MDIFF, PCAL #### [address] [place] [address] [place] [address] Hematocrit Volume Fraction (Bld) 31.5 % Low 40.0-52.0 [facility] Comment on above: Performed By: #### H EMDF, NH33, PT, CMP3, LIPA4, CK3, TROPN, LACT3, MDIFF, PCAL #### [address] [address] [place] [address] Hemoglobin mass conc (Bld) 10.3 g/dL Low 13.0-18.0 [facility] Comment on above: Performed By: #### H EMDF, NH33, PT, CMP3, LIPA4, CK3, TROPN, LACT3, MDIFF, PCAL #### [address] [place] [address] [place], [place] MCH Entitic mass (RBC) 28.5 pg Normal 26.0-34.0 [facility] Comment on above: Performed By: #### H EMDF, NH33, PT, CMP3, LIPA4, CK3, TROPN, LACT3, MDIFF, PCAL #### [address] [place] [address] [place] MCHC mass conc (RBC) 32.6 % Normal 32.0-36.0 [facility] Comment on above: Performed By: #### H EMDF, NH33, PT, CMP3, LIPA4, CK3, TROPN, LACT3, MDIFF, PCAL #### [address] MCV Entitic volume (RBC) 87.3 fL Normal 80.0-98.0 [facility] Comment on above: Performed By: #### H EMDF, NH33, PT, CMP3, LIPA4, CK3, TROPN, LACT3, MDIFF, PCAL #### [address] Platelet mean volume Entitic volume (Bld) 8.7 fL Normal 7.4-10.4 [facility] Comment on above: Performed By: #### H EMDF, NH33, PT, CMP3, LIPA4, CK3, TROPN, LACT3, MDIFF, PCAL #### [address] Platelets #/vol (Bld) 202 10*3/uL Normal 140-440 [facility] Comment on above: Performed By: #### H EMDF, NH33, PT, CMP3, LIPA4, CK3, TROPN, LACT3, MDIFF, PCAL #### [address] RBC #/vol (Bld) 3.61 10*6/uL Low 4.40-5.90 [facility] Comment on above: Performed By: #### H EMDF, NH33, PT, CMP3, LIPA4, CK3, TROPN, LACT3, MDIFF, PCAL #### [address] WBC #/vol (Bld) 7.4 10*3/uL Normal 3.6-10.7 [facility] Comment on above: Performed By: #### H EMDF, NH33, PT, CMP3, LIPA4, CK3, TROPN, LACT3, MDIFF, PCAL #### [address] Magnesiumon 12-08-2018 Magnesium mass conc 2.4 mg/dL High 1.6-2.3 [facility] Comment on above: Performed By: #### H EMDF, NH33, PT, CMP3, LIPA4, CK3, TROPN, LACT3, MDIFF, PCAL #### [address] [address] Manual Diffon 12-08-2018 Abs Neutrophile Cnt 5.5 10*3/uL Normal 2.2-8.2 [facility] Comment on above: Performed By: #### H EMDF, NH33, PT, CMP3, LIPA4, CK3, TROPN, LACT3, MDIFF, PCAL #### [address] [phone] Basophils/100 WBC (Bld) 0 % Normal 0-2 S [facility] Comment on above: Performed By: #### H EMDF, NH33, PT, CMP3, LIPA4, CK3, TROPN, LACT3, MDIFF, PCAL #### [address] Comment: SLIDE SCANNED Normal [facility] Comment on above: Performed By: #### H EMDF, NH33, PT, CMP3, LIPA4, CK3, TROPN, LACT3, MDIFF, PCAL #### [address] Eosinophils #/vol (Bld) 0.1 10*3/uL Normal 0.0-0.5 [facility] Comment on above: Performed By: #### H EMDF, NH33, PT, CMP3, LIPA4, CK3, TROPN, LACT3, MDIFF, PCAL #### [address] Eosinophils/100 WBC (Bld) 1 % Normal [facility] Comment on above: Performed By: #### H EMDF, NH33, PT, CMP3, LIPA4, CK3, TROPN, LACT3, MDIFF, PCAL #### [address] Lymphocytes #/vol (Bld) 0.8 10*3/uL Low 1.1-4.5 [facility] Comment on above: Performed By: #### H EMDF, NH33, PT, CMP3, LIPA4, CK3, TROPN, LACT3, MDIFF, PCAL #### [address] [place] [address] [place] [id number] Lymphocytes/100 WBC (Bld) 11 % Normal [facility] Comment on above: Performed By: #### H EMDF, NH33, PT, CMP3, LIPA4, CK3, TROPN, LACT3, MDIFF, PCAL #### [address] [address] [place], [place] Monocytes #/vol (Bld) 1.0 10*3/uL Normal 0.2-1.1 [facility] Comment on above: Performed By: #### H EMDF, NH33, PT, CMP3, LIPA4, CK3, TROPN, LACT3, MDIFF, PCAL #### [address] [address] [place], [place] Monocytes/100 WBC (Bld) 14 % Normal [facility] Comment on above: Performed By: #### H EMDF, NH33, PT, CMP3, LIPA4, CK3, TROPN, LACT3, MDIFF, PCAL #### [address] Ovalocytes SLIGHT Normal [facility] Comment on above: Performed By: #### H EMDF, NH33, PT, CMP3, LIPA4, CK3, TROPN, LACT3, MDIFF, PCAL #### [address] [address] [place], [place] Poikilocytosis SLIGHT Normal [facility] Comment on above: Performed By: #### H EMDF, NH33, PT, CMP3, LIPA4, CK3, TROPN, LACT3, MDIFF, PCAL #### [address] RBC morphology finding Nom (Bld) ABNORMAL Normal [facility] Comment on above: Performed By: #### H EMDF, NH33, PT, CMP3, LIPA4, CK3, TROPN, LACT3, MDIFF, PCAL #### [address] [address] [place], [place] Seg Neutrophils 74 % Normal [facility] Comment on above: Performed By: #### H EMDF, NH33, PT, CMP3, LIPA4, CK3, TROPN, LACT3, MDIFF, PCAL #### [address] [address] [place], [place] Abs Baso Cnt 0.0 10*3/uL Normal 0.0-0.2 [facility] Comment on above: Performed By: #### H EMDF, NH33, PT, CMP3, LIPA4, CK3, TROPN, LACT3, MDIFF, PCAL #### [address] Bands 0 % Normal 0-3 [facility] Comment on above: Performed By: #### H EMDF, NH33, PT, CMP3, LIPA4, CK3, TROPN, LACT3, MDIFF, PCAL #### [address] [place] [address] [place], [place] Cells counted 100 Normal [facility] Comment on above: Performed By: #### H EMDF, NH33, PT, CMP3, LIPA4, CK3, TROPN, LACT3, MDIFF, PCAL #### [address] Phosphoruson 12-08-2018 Phosphate mass conc 2.8 mg/dL Normal 2.5-4.5 [facility] Comment on above: Performed By: #### H EMDF, NH33, PT, CMP3, LIPA4, CK3, TROPN, LACT3, MDIFF, PCAL #### [address] Basic Metabolic Panelon 11-23 Anion gap molar conc 7 Normal [facility] Comment on above: Performed By: #### H EMDF, NH33, PT, CMP3, LIPA4, CK3, TROPN, LACT3, MDIFF, PCAL #### [address] [place], [place] Calcium mass conc 8.6 mg/dL Normal 8.4-10.4 [facility] Comment on above: Performed By: #### H EMDF, NH33, PT, CMP3, LIPA4, CK3, TROPN, LACT3, MDIFF, PCAL #### [address] CO2 molar conc 36 mmol/L High 22-30 [facility] Comment on above: Performed By: #### H EMDF, NH33, PT, CMP3, LIPA4, CK3, TROPN, LACT3, MDIFF, PCAL #### [address] Glucose mass conc 89 mg/dL Normal 70-100 [facility] Comment on above: Performed By: #### H EMDF, NH33, PT, CMP3, LIPA4, CK3, TROPN, LACT3, MDIFF, PCAL #### [address] [address] [place], [place] Urea nitrogen mass conc 75 mg/dL High 7-20 [facility] Comment on above: Performed By: #### H EMDF, NH33, PT, CMP3, LIPA4, CK3, TROPN, LACT3, MDIFF, PCAL #### [address] Creatinine mass conc 2.75 mg/dL High 0.52-1.25 [facility] Comment on above: Performed By: #### H EMDF, NH33, PT, CMP3, LIPA4, CK3, TROPN, LACT3, MDIFF, PCAL #### [address] GFR/1.73 sq M predicted among blacks MDRD vol rate/area (S/P/Bld) 27.1 mL/min/{1.73_m2} Normal >60 [facility] Comment on above: Performed By: #### H EMDF, NH33, PT, CMP3, LIPA4, CK3, TROPN, LACT3, MDIFF, PCAL #### [facility] [address] [place] [address] GFR/1.73 sq M predicted among non-blacks MDRD vol rate/area (S/P/Bld) 22.3 mL/min/{1.73_m2} Normal >60 [facility] Comment on above: Result Comment: Sour ce- MDRD equation with creatinine calibration to IDMS(NKDEP) eGFR not recommended for drug dose adjustment Performed By: #### H EMDF, NH33, PT, CMP3, LIPA4, CK3, TROPN, LACT3, MDIFF, PCAL #### [facility] [address] [place] [address] Potassium molar conc 3.3 mmol/L Low 3.5-5.1 [facility] Comment on above: Performed By: #### H EMDF, NH33, PT, CMP3, LIPA4, CK3, TROPN, LACT3, MDIFF, PCAL #### [address] [address] [place] [address] Sodium molar conc 142 mmol/L Normal 135-145 [facility] Comment on above: Performed By: #### H EMDF, NH33, PT, CMP3, LIPA4, CK3, TROPN, LACT3, MDIFF, PCAL #### [address] [place] [address] Chloride molar conc 100 mmol/L Normal 98-107 [facility] Comment on above: Performed By: #### H EMDF, NH33, PT, CMP3, LIPA4, CK3, TROPN, LACT3, MDIFF, PCAL #### [address] [address] [place] [address] CR Chest Portableon 12-07-19 19 CR Chest Portable Patient Name: ELIAS SHAH Diagnostic Radiology Exam Date/Time 12/07/2018 07:13:20 EST Exam CR Chest Portable Ordering Physician KEE GARNICA HEATHER Accession Number [id number] CPT4 Codes 49314 () Reason For Exam pna Report Portable [...] Transcribed Date and Time: 12/07/2018 7:47 Normal [facility] CULTURE URINEon 12-07-2018 CULTURE URINE CULTURE URINE --> Status: F No growth (<1,000 CFU/ml). Normal [facility] Comment on above: Order Comment: Speci men Source Comment:Urine, straight catheter Performed By: #### H EMDF, NH33, PT, CMP3, LIPA4, CK3, TROPN, LACT3, MDIFF, PCAL #### [address] [address] Hemogram w/ Autodiffon 12-07 Abs Baso Cnt 0.0 10*3/uL Normal 0.0-0.2 [facility] Comment on above: Performed By: #### H EMDF, NH33, PT, CMP3, LIPA4, CK3, TROPN, LACT3, MDIFF, PCAL #### [address] Abs Neutrophile Cnt 5.0 10*3/uL Normal 1.8-7.0 [facility] Comment on above: Performed By: #### H EMDF, NH33, PT, CMP3, LIPA4, CK3, TROPN, LACT3, MDIFF, PCAL #### [address] [address] Basophils/100 WBC (Bld) 0.4 % Normal 0.0-2.0 [facility] Comment on above: Performed By: #### H EMDF, NH33, PT, CMP3, LIPA4, CK3, TROPN, LACT3, MDIFF, PCAL #### [address] [address] [place], [place] Eosinophils #/vol (Bld) 0.0 10*3/uL Normal 0.0-0.5 [facility] Comment on above: Performed By: #### H EMDF, NH33, PT, CMP3, LIPA4, CK3, TROPN, LACT3, MDIFF, PCAL #### [address] Eosinophils/100 WBC (Bld) 0.3 % Low 1.0-6.0 [facility] Comment on above: Performed By: #### H EMDF, NH33, PT, CMP3, LIPA4, CK3, TROPN, LACT3, MDIFF, PCAL #### [address] Erythrocyte distribution width Ratio (RBC) 15.4 % High 11.5-14.5 [facility] Comment on above: Performed By: #### H EMDF, NH33, PT, CMP3, LIPA4, CK3, TROPN, LACT3, MDIFF, PCAL #### [address] Granulocytes/100 WBC (Bld) 63.5 % Normal 40.0-80.0 [facility] Comment on above: Performed By: #### H EMDF, NH33, PT, CMP3, LIPA4, CK3, TROPN, LACT3, MDIFF, PCAL #### [address] Hematocrit Volume Fraction (Bld) 32.4 % Low 40.0-52.0 [facility] Comment on above: Performed By: #### H EMDF, NH33, PT, CMP3, LIPA4, CK3, TROPN, LACT3, MDIFF, PCAL #### [address] Hemoglobin mass conc (Bld) 10.7 g/dL Low 13.0-18.0 [facility] Comment on above: Performed By: #### H EMDF, NH33, PT, CMP3, LIPA4, CK3, TROPN, LACT3, MDIFF, PCAL #### [address] Lymphocytes #/vol (Bld) 1.4 10*3/uL Normal 1.0-4.3 [facility] Comment on above: Performed By: #### H EMDF, NH33, PT, CMP3, LIPA4, CK3, TROPN, LACT3, MDIFF, PCAL #### [address] Lymphocytes/100 WBC (Bld) 18.5 % Low 20.0-40.0 [facility] Comment on above: Performed By: #### H EMDF, NH33, PT, CMP3, LIPA4, CK3, TROPN, LACT3, MDIFF, PCAL #### [address] MCH Entitic mass (RBC) 28.7 pg Normal 26.0-34.0 [facility] Comment on above: Performed By: #### H EMDF, NH33, PT, CMP3, LIPA4, CK3, TROPN, LACT3, MDIFF, PCAL #### [address] MCHC mass conc (RBC) 33.0 % Normal 32.0-36.0 [facility] Comment on above: Performed By: #### H EMDF, NH33, PT, CMP3, LIPA4, CK3, TROPN, LACT3, MDIFF, PCAL #### [address] MCV Entitic volume (RBC) 87.2 fL Normal 80.0-98.0 [facility] Comment on above: Performed By: #### H EMDF, NH33, PT, CMP3, LIPA4, CK3, TROPN, LACT3, MDIFF, PCAL #### [address] Monocytes #/vol (Bld) 1.4 10*3/uL High 0.0-0.8 [facility] Comment on above: Performed By: #### H EMDF, NH33, PT, CMP3, LIPA4, CK3, TROPN, LACT3, MDIFF, PCAL #### [address] Monocytes/100 WBC (Bld) 17.3 % High 2.0-10.0 [facility] Comment on above: Performed By: #### H EMDF, NH33, PT, CMP3, LIPA4, CK3, TROPN, LACT3, MDIFF, PCAL #### [address] Platelet mean volume Entitic volume (Bld) 8.5 fL Normal 7.4-10.4 [facility] Comment on above: Performed By: #### H EMDF, NH33, PT, CMP3, LIPA4, CK3, TROPN, LACT3, MDIFF, PCAL #### [address] Platelets #/vol (Bld) 217 10*3/uL Normal 140-440 [facility] Comment on above: Performed By: #### H EMDF, NH33, PT, CMP3, LIPA4, CK3, TROPN, LACT3, MDIFF, PCAL #### [address] RBC #/vol (Bld) 3.72 10*6/uL Low 4.40-5.90 [facility] Comment on above: Performed By: #### H EMDF, NH33, PT, CMP3, LIPA4, CK3, TROPN, LACT3, MDIFF, PCAL #### [address] WBC #/vol (Bld) 7.8 10*3/uL Normal 3.6-10.7 [facility] Comment on above: Performed By: #### H EMDF, NH33, PT, CMP3, LIPA4, CK3, TROPN, LACT3, MDIFF, PCAL #### [address] Magnesiumon 01-15-2019 Magnesium mass conc 2.9 mg/dL High 1.6-2.3 [facility] Comment on above: Performed By: #### H EMDF, NH33, PT, CMP3, LIPA4, CK3, TROPN, LACT3, MDIFF, PCAL #### [address] [address] [address] [place], [place] Phosphoruson 12-07-2018 Phosphate mass conc 3.2 mg/dL Normal 2.5-4.5 [facility] Comment on above: Performed By: #### H EMDF, NH33, PT, CMP3, LIPA4, CK3, TROPN, LACT3, MDIFF, PCAL #### [address] [address] [address] [place], [place] Urinalysis,Macroon 9 Appearance Nom (U) cloudy Normal Clear [facility] Comment on above: Performed By: #### H EMDF, NH33, PT, CMP3, LIPA4, CK3, TROPN, LACT3, MDIFF, PCAL #### [address] [address] [address] [place], [place] Bilirubin,Ur Negative Normal Negative [facility] Comment on above: Performed By: #### H EMDF, NH33, PT, CMP3, LIPA4, CK3, TROPN, LACT3, MDIFF, PCAL #### [address] [address] [address] [place], [place] Color Nom (U) red Normal Lt. Yellow [facility] Comment on above: Performed By: #### H EMDF, NH33, PT, CMP3, LIPA4, CK3, TROPN, LACT3, MDIFF, PCAL #### [address] [address] [address] [place], [place] Glucose Ql (U) 100 mg/dL Normal Negative [facility] Comment on above: Performed By: #### H EMDF, NH33, PT, CMP3, LIPA4, CK3, TROPN, LACT3, MDIFF, PCAL #### [address] [address] [address] [place], [place] Ketone,Urine 3 + mg/dL Normal Negative [facility] Comment on above: Performed By: #### H EMDF, NH33, PT, CMP3, LIPA4, CK3, TROPN, LACT3, MDIFF, PCAL #### [address] Nitrite Ql (U) Negative Normal Negative [facility] Comment on above: Performed By: #### H EMDF, NH33, PT, CMP3, LIPA4, CK3, TROPN, LACT3, MDIFF, PCAL #### [address] Occult Blood,Ur 250 {RBC}/uL Normal Negative [facility] Comment on above: Performed By: #### H EMDF, NH33, PT, CMP3, LIPA4, CK3, TROPN, LACT3, MDIFF, PCAL #### [address] pH (U) 8.0 Normal 5.0-8.0 [facility] Comment on above: Performed By: #### H EMDF, NH33, PT, CMP3, LIPA4, CK3, TROPN, LACT3, MDIFF, PCAL #### [address] Protein mass conc (U) 75 mg/dL Normal Negative [facility] Comment on above: Performed By: #### H EMDF, NH33, PT, CMP3, LIPA4, CK3, TROPN, LACT3, MDIFF, PCAL #### [address] Specific [place],Urine 1.010 Normal 1.005-1.030 [facility] Comment on above: Performed By: #### H EMDF, NH33, PT, CMP3, LIPA4, CK3, TROPN, LACT3, MDIFF, PCAL #### [address] Urobilinogen Qn (U) NORM Normal 0-1 [facility] Comment on above: Performed By: #### H EMDF, NH33, PT, CMP3, LIPA4, CK3, TROPN, LACT3, MDIFF, PCAL #### [address] WBC #/vol (Bld) 1 + Normal Negative [facility] Comment on above: Performed By: #### H EMDF, NH33, PT, CMP3, LIPA4, CK3, TROPN, LACT3, MDIFF, PCAL #### [address] Urinalysis,Microscopicon Bacteria LM.HPF #/area (Urine sed) Moderate (6-50) Normal Negative [facility] Comment on above: Performed By: #### H EMDF, NH33, PT, CMP3, LIPA4, CK3, TROPN, LACT3, MDIFF, PCAL #### [address] Epithelial cells LM.HPF #/area (Urine sed) 0 - 2 Normal 3-5 [facility] Comment on above: Performed By: #### H EMDF, NH33, PT, CMP3, LIPA4, CK3, TROPN, LACT3, MDIFF, PCAL #### [address] RBC LM.HPF #/area (Urine sed) 51 - 100 Normal 0-2 [facility] Comment on above: Performed By: #### H EMDF, NH33, PT, CMP3, LIPA4, CK3, TROPN, LACT3, MDIFF, PCAL #### [address] Volume,Urine 8-12 ml Normal [facility] Comment on above: Performed By: #### H EMDF, NH33, PT, CMP3, LIPA4, CK3, TROPN, LACT3, MDIFF, PCAL #### [address] WBC LM.HPF #/area (Urine sed) 3 - 5 Normal 0-5 [facility] Comment on above: Performed By: #### H EMDF, NH33, PT, CMP3, LIPA4, CK3, TROPN, LACT3, MDIFF, PCAL #### [address] [address] [place], [place] Basic Metabolic Panelon 11-23 Anion gap molar conc 6 Normal [facility] Comment on above: Performed By: #### H EMDF, NH33, PT, CMP3, LIPA4, CK3, TROPN, LACT3, MDIFF, PCAL #### [address] [address] [place], [place] Calcium mass conc 8.6 mg/dL Normal 8.4-10.4 [facility] Comment on above: Performed By: #### H EMDF, NH33, PT, CMP3, LIPA4, CK3, TROPN, LACT3, MDIFF, PCAL #### [address] [address] [place], [place] CO2 molar conc 37 mmol/L High 22-30 [facility] Comment on above: Performed By: #### H EMDF, NH33, PT, CMP3, LIPA4, CK3, TROPN, LACT3, MDIFF, PCAL #### [address] [address] [place], [place] Glucose mass conc 97 mg/dL Normal 70-100 [facility] Comment on above: Performed By: #### H EMDF, NH33, PT, CMP3, LIPA4, CK3, TROPN, LACT3, MDIFF, PCAL #### [address] [address] [place], [place] Urea nitrogen mass conc 77 mg/dL High 7-20 [facility] Comment on above: Performed By: #### H EMDF, NH33, PT, CMP3, LIPA4, CK3, TROPN, LACT3, MDIFF, PCAL #### [address] [address] [place], [place] Creatinine mass conc 3.07 mg/dL High 0.52-1.25 [facility] Comment on above: Performed By: #### H EMDF, NH33, PT, CMP3, LIPA4, CK3, TROPN, LACT3, MDIFF, PCAL #### [facility] [address] [place] [address] GFR/1.73 sq M predicted among blacks MDRD vol rate/area (S/P/Bld) 23.8 mL/min/{1.73_m2} Normal >60 [facility] Comment on above: Performed By: #### H EMDF, NH33, PT, CMP3, LIPA4, CK3, TROPN, LACT3, MDIFF, PCAL #### [address] [place] [address] GFR/1.73 sq M predicted among non-blacks MDRD vol rate/area (S/P/Bld) 19.7 mL/min/{1.73_m2} Normal >60 [facility] Comment on above: Result Comment: Sour ce- MDRD equation with creatinine calibration to IDMS(NKDEP) eGFR not recommended for drug dose adjustment Performed By: #### H EMDF, NH33, PT, CMP3, LIPA4, CK3, TROPN, LACT3, MDIFF, PCAL #### [address] [address] [place] [address] Potassium molar conc 3.4 mmol/L Low 3.5-5.1 [facility] Comment on above: Performed By: #### H EMDF, NH33, PT, CMP3, LIPA4, CK3, TROPN, LACT3, MDIFF, PCAL #### [address] [address] [place] [address] Sodium molar conc 142 mmol/L Normal 135-145 [facility] Comment on above: Performed By: #### H EMDF, NH33, PT, CMP3, LIPA4, CK3, TROPN, LACT3, MDIFF, PCAL #### [address] [address] Chloride molar conc 99 mmol/L Normal 98-107 [facility] Comment on above: Performed By: #### H EMDF, NH33, PT, CMP3, LIPA4, CK3, TROPN, LACT3, MDIFF, PCAL #### [address] Calcium mass conc 8.7 mg/dL Normal 8.4-10.4 [facility] Comment on above: Performed By: #### H EMDF, NH33, PT, CMP3, LIPA4, CK3, TROPN, LACT3, MDIFF, PCAL #### [facility] [address] [place], [place] Glucose mass conc 106 mg/dL High 70-100 [facility] Comment on above: Performed By: #### H EMDF, NH33, PT, CMP3, LIPA4, CK3, TROPN, LACT3, MDIFF, PCAL #### [address] [address] [place], [place] Anion gap molar conc 7 Normal [facility] Comment on above: Performed By: #### H EMDF, NH33, PT, CMP3, LIPA4, CK3, TROPN, LACT3, MDIFF, PCAL #### [address] [address] [place] CO2 molar conc 36 mmol/L High 22-30 [facility] Comment on above: Performed By: #### H EMDF, NH33, PT, CMP3, LIPA4, CK3, TROPN, LACT3, MDIFF, PCAL #### [address] [address] [address] [place], [place] Creatinine mass conc 3.58 mg/dL High 0.52-1.25 [facility] Comment on above: Performed By: #### H EMDF, NH33, PT, CMP3, LIPA4, CK3, TROPN, LACT3, MDIFF, PCAL #### [address] [place] [address] [address] [place], [place] GFR/1.73 sq M predicted among blacks MDRD vol rate/area (S/P/Bld) 20.0 mL/min/{1.73_m2} Normal >60 [facility] Comment on above: Performed By: #### H EMDF, NH33, PT, CMP3, LIPA4, CK3, TROPN, LACT3, MDIFF, PCAL #### [address] [place] [address] [place], [place] GFR/1.73 sq M predicted among non-blacks MDRD vol rate/area (S/P/Bld) 16.5 mL/min/{1.73_m2} Normal >60 [facility] Comment on above: Result Comment: Sour ce- MDRD equation with creatinine calibration to IDMS(NKDEP) eGFR not recommended for drug dose adjustment Performed By: #### H EMDF, NH33, PT, CMP3, LIPA4, CK3, TROPN, LACT3, MDIFF, PCAL #### [address] Urea nitrogen mass conc 79 mg/dL High 7-20 [facility] Comment on above: Performed By: #### H EMDF, NH33, PT, CMP3, LIPA4, CK3, TROPN, LACT3, MDIFF, PCAL #### [address] Chloride molar conc 97 mmol/L Low 98-107 [facility] Comment on above: Performed By: #### H EMDF, NH33, PT, CMP3, LIPA4, CK3, TROPN, LACT3, MDIFF, PCAL #### [address] Potassium molar conc 3.5 mmol/L Normal 3.5-5.1 [facility] Comment on above: Performed By: #### H EMDF, NH33, PT, CMP3, LIPA4, CK3, TROPN, LACT3, MDIFF, PCAL #### [address] Sodium molar conc 140 mmol/L Normal 135-145 [facility] Comment on above: Performed By: #### H EMDF, NH33, PT, CMP3, LIPA4, CK3, TROPN, LACT3, MDIFF, PCAL #### [address] Calcium mass conc 8.7 mg/dL Normal 8.4-10.4 [facility] Comment on above: Performed By: #### H EMDF, NH33, PT, CMP3, LIPA4, CK3, TROPN, LACT3, MDIFF, PCAL #### [address] [address] [place], [place] Glucose mass conc 106 mg/dL High 70-100 [facility] Comment on above: Performed By: #### H EMDF, NH33, PT, CMP3, LIPA4, CK3, TROPN, LACT3, MDIFF, PCAL #### [address] [place] [address] [place], [place] Anion gap molar conc 9 Normal [facility] Comment on above: Performed By: #### H EMDF, NH33, PT, CMP3, LIPA4, CK3, TROPN, LACT3, MDIFF, PCAL #### [address] [place] [address] [place] CO2 molar conc 35 mmol/L High 22-30 [facility] Comment on above: Performed By: #### H EMDF, NH33, PT, CMP3, LIPA4, CK3, TROPN, LACT3, MDIFF, PCAL #### [address] [address] [place], [place] Creatinine mass conc 3.92 mg/dL High 0.52-1.25 [facility] Comment on above: Performed By: #### H EMDF, NH33, PT, CMP3, LIPA4, CK3, TROPN, LACT3, MDIFF, PCAL #### [address] [address] [place], [place] GFR/1.73 sq M predicted among blacks MDRD vol rate/area (S/P/Bld) 18.0 mL/min/{1.73_m2} Normal >60 [facility] Comment on above: Performed By: #### H EMDF, NH33, PT, CMP3, LIPA4, CK3, TROPN, LACT3, MDIFF, PCAL #### [address] GFR/1.73 sq M predicted among non-blacks MDRD vol rate/area (S/P/Bld) 14.8 mL/min/{1.73_m2} Normal >60 [facility] Comment on above: Result Comment: Sour ce- MDRD equation with creatinine calibration to IDMS(NKDEP) eGFR not recommended for drug dose adjustment Performed By: #### H EMDF, NH33, PT, CMP3, LIPA4, CK3, TROPN, LACT3, MDIFF, PCAL #### [facility] [address] [place], [place] Urea nitrogen mass conc 82 mg/dL High 7-20 [facility] Comment on above: Performed By: #### H EMDF, NH33, PT, CMP3, LIPA4, CK3, TROPN, LACT3, MDIFF, PCAL #### [address] [place] [address] [address] [place], [place] Chloride molar conc 96 mmol/L Low 98-107 [facility] Comment on above: Performed By: #### H EMDF, NH33, PT, CMP3, LIPA4, CK3, TROPN, LACT3, MDIFF, PCAL #### [place] [address] [address] [place], [place] Potassium molar conc 4.1 mmol/L Normal 3.5-5.1 [facility] Comment on above: Performed By: #### H EMDF, NH33, PT, CMP3, LIPA4, CK3, TROPN, LACT3, MDIFF, PCAL #### [place] [address] [address] [place], [place] Sodium molar conc 140 mmol/L Normal 135-145 [facility] Comment on above: Performed By: #### H EMDF, NH33, PT, CMP3, LIPA4, CK3, TROPN, LACT3, MDIFF, PCAL #### [facility] [address] [place], [place] Calcium mass conc 9.1 mg/dL Normal 8.4-10.4 [facility] Comment on above: Performed By: #### H EMDF, NH33, PT, CMP3, LIPA4, CK3, TROPN, LACT3, MDIFF, PCAL #### [place] [address] [address] [place], [place] Glucose mass conc 123 mg/dL High 70-100 [facility] Comment on above: Performed By: #### H EMDF, NH33, PT, CMP3, LIPA4, CK3, TROPN, LACT3, MDIFF, PCAL #### [place] [address] [address] [place], [place] Urea nitrogen mass conc 83 mg/dL High 7-20 [facility] Comment on above: Performed By: #### H EMDF, NH33, PT, CMP3, LIPA4, CK3, TROPN, LACT3, MDIFF, PCAL #### [place] [address] [address] [place], [place] Anion gap molar conc 11 Normal [facility] Comment on above: Performed By: #### H EMDF, NH33, PT, CMP3, LIPA4, CK3, TROPN, LACT3, MDIFF, PCAL #### [address] [place] [address] [place] CO2 molar conc 33 mmol/L High 22-30 [facility] Comment on above: Performed By: #### H EMDF, NH33, PT, CMP3, LIPA4, CK3, TROPN, LACT3, MDIFF, PCAL #### [place] [address] [address] [place], [place] Creatinine mass conc 4.28 mg/dL High 0.52-1.25 [facility] Comment on above: Performed By: #### H EMDF, NH33, PT, CMP3, LIPA4, CK3, TROPN, LACT3, MDIFF, PCAL #### [place] [address] [address] [place], [place] GFR/1.73 sq M predicted among blacks MDRD vol rate/area (S/P/Bld) 16.2 mL/min/{1.73_m2} Normal >60 [facility] Comment on above: Performed By: #### H EMDF, NH33, PT, CMP3, LIPA4, CK3, TROPN, LACT3, MDIFF, PCAL #### [address] [place] [address] [place] GFR/1.73 sq M predicted among non-blacks MDRD vol rate/area (S/P/Bld) 13.4 mL/min/{1.73_m2} Normal >60 [facility] Comment on above: Result Comment: Sour ce- MDRD equation with creatinine calibration to IDMS(NKDEP) eGFR not recommended for drug dose adjustment Performed By: #### H EMDF, NH33, PT, CMP3, LIPA4, CK3, TROPN, LACT3, MDIFF, PCAL #### [facility] [address] [place] [address] Potassium molar conc 3.4 mmol/L Low 3.5-5.1 [facility] Comment on above: Performed By: #### H EMDF, NH33, PT, CMP3, LIPA4, CK3, TROPN, LACT3, MDIFF, PCAL #### [address] [place] [address] Chloride molar conc 95 mmol/L Low 98-107 [facility] Comment on above: Performed By: #### H EMDF, NH33, PT, CMP3, LIPA4, CK3, TROPN, LACT3, MDIFF, PCAL #### [address] [place] [address] Sodium molar conc 139 mmol/L Normal 135-145 [facility] Comment on above: Performed By: #### H EMDF, NH33, PT, CMP3, LIPA4, CK3, TROPN, LACT3, MDIFF, PCAL #### [address] [place] [address] CR Chest Portableon 12-06-19 19 CR Chest Portable Patient Name: ELIAS SHAH Diagnostic Radiology Exam Date/Time 12/06/2018 06:25:16 EST Exam CR Chest Portable Ordering Physician KEE GARNICA HEATHER Accession Number [id number] CPT4 Codes 32207 () Reason For Exam pna Report CHEST [...] Transcribed Date and Time: 12/06/2018 8:10 Normal [facility] Echo Complete w/wo Contrasto n 12-06-2018 Echo Complete w/wo Contrast Patient Name: ELIAS SHAH Ultrasound Exam Date/Time 12/06/2018 10:17:48 EST Exam Echo Complete w/wo Contrast Ordering Physician KEE GARNICA HEATHER Accession Number [id number] Reason For Exam syncopal Report TRANSTHORACIC ECHOCARDIOGRAM PATIENT: Elias Shah STUDY DATE: 12/06/2018 : 1940 AGE: 78 HT/WT: 177.8 cm (70 82.6 kg (181.6 in) lb) GENDER: M BP: 136 / 68 LOCATION: [facility] PATIENT Inpatient [facility] STATUS: *ORDERING PHYSICIAN: * Patricia Garnica *READING PHYSICIAN: * José Miguel *SPECIALTY SALES REPRESENTATIVE: Martin Merrill RDCS, Brenda GUZMAN MD RCS [...] Signed by: MD GUTIERREZ STEPHEN A Normal [employer] [employer] Hemogram w/ Autodiffon 12-06 Abs Baso Cnt 0.0 10*3/uL Normal 0.0-0.2 [employer] Comment on above: Performed By: #### H EMDF, NH33, PT, CMP3, LIPA4, CK3, TROPN, LACT3, MDIFF, PCAL #### [employer] [address] [place], [place] [id number] Abs Neutrophile Cnt 7.3 10*3/uL High 1.8-7.0 [facility] Comment on above: Performed By: #### H EMDF, NH33, PT, CMP3, LIPA4, CK3, TROPN, LACT3, MDIFF, PCAL #### [address] Basophils/100 WBC (Bld) 0.3 % Normal 0.0-2.0 [facility] Comment on above: Performed By: #### H EMDF, NH33, PT, CMP3, LIPA4, CK3, TROPN, LACT3, MDIFF, PCAL #### [address] Eosinophils #/vol (Bld) 0.0 10*3/uL Normal 0.0-0.5 [facility] Comment on above: Performed By: #### H EMDF, NH33, PT, CMP3, LIPA4, CK3, TROPN, LACT3, MDIFF, PCAL #### [address] Eosinophils/100 WBC (Bld) 0.0 % Low 1.0-6.0 [facility] Comment on above: Performed By: #### H EMDF, NH33, PT, CMP3, LIPA4, CK3, TROPN, LACT3, MDIFF, PCAL #### [address] Erythrocyte distribution width Ratio (RBC) 15.4 % High 11.5-14.5 [facility] Comment on above: Performed By: #### H EMDF, NH33, PT, CMP3, LIPA4, CK3, TROPN, LACT3, MDIFF, PCAL #### [address] Granulocytes/100 WBC (Bld) 71.0 % Normal 40.0-80.0 [facility] Comment on above: Performed By: #### H EMDF, NH33, PT, CMP3, LIPA4, CK3, TROPN, LACT3, MDIFF, PCAL #### [address] Hematocrit Volume Fraction (Bld) 35.1 % Low 40.0-52.0 [facility] Comment on above: Performed By: #### H EMDF, NH33, PT, CMP3, LIPA4, CK3, TROPN, LACT3, MDIFF, PCAL #### [address] Hemoglobin mass conc (Bld) 11.6 g/dL Low 13.0-18.0 [facility] Comment on above: Performed By: #### H EMDF, NH33, PT, CMP3, LIPA4, CK3, TROPN, LACT3, MDIFF, PCAL #### [address] Lymphocytes #/vol (Bld) 1.3 10*3/uL Normal 1.0-4.3 [facility] Comment on above: Performed By: #### H EMDF, NH33, PT, CMP3, LIPA4, CK3, TROPN, LACT3, MDIFF, PCAL #### [address] Lymphocytes/100 WBC (Bld) 13.1 % Low 20.0-40.0 [facility] Comment on above: Performed By: #### H EMDF, NH33, PT, CMP3, LIPA4, CK3, TROPN, LACT3, MDIFF, PCAL #### [address] MCH Entitic mass (RBC) 28.5 pg Normal 26.0-34.0 [facility] Comment on above: Performed By: #### H EMDF, NH33, PT, CMP3, LIPA4, CK3, TROPN, LACT3, MDIFF, PCAL #### [address] MCHC mass conc (RBC) 33.1 % Normal 32.0-36.0 [facility] Comment on above: Performed By: #### H EMDF, NH33, PT, CMP3, LIPA4, CK3, TROPN, LACT3, MDIFF, PCAL #### [address] MCV Entitic volume (RBC) 86.2 fL Normal 80.0-98.0 [facility] Comment on above: Performed By: #### H EMDF, NH33, PT, CMP3, LIPA4, CK3, TROPN, LACT3, MDIFF, PCAL #### [address] [place] [address] [place], [place] Monocytes #/vol (Bld) 1.6 10*3/uL High 0.0-0.8 [facility] Comment on above: Performed By: #### H EMDF, NH33, PT, CMP3, LIPA4, CK3, TROPN, LACT3, MDIFF, PCAL #### [address] Monocytes/100 WBC (Bld) 15.6 % High 2.0-10.0 [facility] Comment on above: Performed By: #### H EMDF, NH33, PT, CMP3, LIPA4, CK3, TROPN, LACT3, MDIFF, PCAL #### [address] Platelet mean volume Entitic volume (Bld) 8.6 fL Normal 7.4-10.4 [facility] Comment on above: Performed By: #### H EMDF, NH33, PT, CMP3, LIPA4, CK3, TROPN, LACT3, MDIFF, PCAL #### [address] Platelets #/vol (Bld) 224 10*3/uL Normal 140-440 [facility] Comment on above: Performed By: #### H EMDF, NH33, PT, CMP3, LIPA4, CK3, TROPN, LACT3, MDIFF, PCAL #### [address] RBC #/vol (Bld) 4.07 10*6/uL Low 4.40-5.90 [facility] Comment on above: Performed By: #### H EMDF, NH33, PT, CMP3, LIPA4, CK3, TROPN, LACT3, MDIFF, PCAL #### [address] [place] [address] [place], [place] WBC #/vol (Bld) 10.3 10*3/uL Normal 3.6-10.7 [facility] Comment on above: Performed By: #### H EMDF, NH33, PT, CMP3, LIPA4, CK3, TROPN, LACT3, MDIFF, PCAL #### [address] [place] [address] [place], [place] Magnesiumon 12-06-2018 Magnesium mass conc 3.0 mg/dL High 1.6-2.3 [facility] Comment on above: Performed By: #### H EMDF, NH33, PT, CMP3, LIPA4, CK3, TROPN, LACT3, MDIFF, PCAL #### [address] [place] [address] [address] [place], [place] Magnesium mass conc 3.1 mg/dL High 1.6-2.3 [facility] Comment on above: Performed By: #### H EMDF, NH33, PT, CMP3, LIPA4, CK3, TROPN, LACT3, MDIFF, PCAL #### [address] [place] [address] [place], [place] Magnesium mass conc 3.3 mg/dL High 1.6-2.3 [facility] Comment on above: Performed By: #### H EMDF, NH33, PT, CMP3, LIPA4, CK3, TROPN, LACT3, MDIFF, PCAL #### [address] Magnesium mass conc 3.4 mg/dL High 1.6-2.3 [facility] Comment on above: Performed By: #### H EMDF, NH33, PT, CMP3, LIPA4, CK3, TROPN, LACT3, MDIFF, PCAL #### [address] Phosphoruson 12-06-2018 Phosphate mass conc 4.0 mg/dL Normal 2.5-4.5 [facility] Comment on above: Performed By: #### H EMDF, NH33, PT, CMP3, LIPA4, CK3, TROPN, LACT3, MDIFF, PCAL #### [facility] [address] [place], [place] Troponin Ion 12-06-2018 Troponin I.cardiac mass conc 0.240 ng/mL High 0.000-0.034 [facility] Comment on above: Result Comment: 0.04 6 - 0.400 = Indeterminate > 0.400 = Consider Myocardial Injury Performed By: #### H EMDF, NH33, PT, CMP3, LIPA4, CK3, TROPN, LACT3, MDIFF, PCAL #### [place] [address] [address] [place], [place] Add on test from [facility] 12-05 Add on test from [facility] Accepted Normal [facility] Comment on above: Result Comment: Spec imen available & acceptable for analysis. Performed By: #### H EMDF, NH33, PT, CMP3, LIPA4, CK3, TROPN, LACT3, MDIFF, PCAL #### [address] [place] [address] [address] [place], [place] Basic Metabolic Panelon 11-23 Anion gap molar conc 11 Normal [facility] Comment on above: Performed By: #### H EMDF, NH33, PT, CMP3, LIPA4, CK3, TROPN, LACT3, MDIFF, PCAL #### [place] [address] [address] [place], [place] CO2 molar conc 35 mmol/L High 22-30 [facility] Comment on above: Performed By: #### H EMDF, NH33, PT, CMP3, LIPA4, CK3, TROPN, LACT3, MDIFF, PCAL #### [address] [place] [address] [address] [place], [place] Calcium mass conc 8.8 mg/dL Normal 8.4-10.4 [facility] Comment on above: Performed By: #### H EMDF, NH33, PT, CMP3, LIPA4, CK3, TROPN, LACT3, MDIFF, PCAL #### [address] [place] [address] [place] [address] Glucose mass conc 124 mg/dL High 70-100 [facility] Comment on above: Performed By: #### H EMDF, NH33, PT, CMP3, LIPA4, CK3, TROPN, LACT3, MDIFF, PCAL #### [address] [place] [address] [place] [address] Urea nitrogen mass conc 89 mg/dL High 7-20 [facility] Comment on above: Performed By: #### H EMDF, NH33, PT, CMP3, LIPA4, CK3, TROPN, LACT3, MDIFF, PCAL #### [address] [address] Creatinine mass conc 5.11 mg/dL High 0.52-1.25 [facility] Comment on above: Performed By: #### H EMDF, NH33, PT, CMP3, LIPA4, CK3, TROPN, LACT3, MDIFF, PCAL #### [address] [place] [address] [place] [address] GFR/1.73 sq M predicted among blacks MDRD vol rate/area (S/P/Bld) 13.2 mL/min/{1.73_m2} Normal >60 [facility] Comment on above: Performed By: #### H EMDF, NH33, PT, CMP3, LIPA4, CK3, TROPN, LACT3, MDIFF, PCAL #### [address] [place] [address] [place] [address] GFR/1.73 sq M predicted among non-blacks MDRD vol rate/area (S/P/Bld) 10.9 mL/min/{1.73_m2} Normal >60 [facility] Comment on above: Result Comment: Sour ce- MDRD equation with creatinine calibration to IDMS(NKDEP) eGFR not recommended for drug dose adjustment Performed By: #### H EMDF, NH33, PT, CMP3, LIPA4, CK3, TROPN, LACT3, MDIFF, PCAL #### [place] [address] [address] [place], [place] Chloride molar conc 93 mmol/L Low 98-107 [facility] Comment on above: Performed By: #### H EMDF, NH33, PT, CMP3, LIPA4, CK3, TROPN, LACT3, MDIFF, PCAL #### [address] [place] [address] [place] [address] Potassium molar conc 3.7 mmol/L Normal 3.5-5.1 [facility] Comment on above: Performed By: #### H EMDF, NH33, PT, CMP3, LIPA4, CK3, TROPN, LACT3, MDIFF, PCAL #### [place] [address] [place], [place] Sodium molar conc 137 mmol/L Normal 135-145 [facility] Comment on above: Performed By: #### H EMDF, NH33, PT, CMP3, LIPA4, CK3, TROPN, LACT3, MDIFF, PCAL #### [address] [place] [address] [address] [place], [place] Calcium mass conc 5.4 mg/dL Critically low 8.4-10.4 [facility] Comment on above: Result Comment: Repe ated Performed By: #### H EMDF, NH33, PT, CMP3, LIPA4, CK3, TROPN, LACT3, MDIFF, PCAL #### [address] [place] [address] [place], [place] Potassium molar conc 2.3 mmol/L Critically low 3.5-5.1 [facility] Comment on above: Result Comment: Repe ated Performed By: #### H EMDF, NH33, PT, CMP3, LIPA4, CK3, TROPN, LACT3, MDIFF, PCAL #### [address] Anion gap molar conc 7 Normal [facility] Comment on above: Performed By: #### H EMDF, NH33, PT, CMP3, LIPA4, CK3, TROPN, LACT3, MDIFF, PCAL #### [place] [address] [address] [place], [place] CO2 molar conc 24 mmol/L Normal 22-30 [facility] Comment on above: Performed By: #### H EMDF, NH33, PT, CMP3, LIPA4, CK3, TROPN, LACT3, MDIFF, PCAL #### [address] [place] [address] [address] [place], [place] Glucose mass conc 116 mg/dL High 70-100 [facility] Comment on above: Performed By: #### H EMDF, NH33, PT, CMP3, LIPA4, CK3, TROPN, LACT3, MDIFF, PCAL #### [address] [place] [address] [place], [place] Urea nitrogen mass conc 63 mg/dL High 7-20 [facility] Comment on above: Performed By: #### H EMDF, NH33, PT, CMP3, LIPA4, CK3, TROPN, LACT3, MDIFF, PCAL #### [address] [place] [address] [place], [place] Creatinine mass conc 3.44 mg/dL High 0.52-1.25 [facility] Comment on above: Performed By: #### H EMDF, NH33, PT, CMP3, LIPA4, CK3, TROPN, LACT3, MDIFF, PCAL #### [address] [place] [address] [address] [place], [place] GFR/1.73 sq M predicted among blacks MDRD vol rate/area (S/P/Bld) 20.9 mL/min/{1.73_m2} Normal >60 [facility] Comment on above: Performed By: #### H EMDF, NH33, PT, CMP3, LIPA4, CK3, TROPN, LACT3, MDIFF, PCAL #### [address] [place] [address] [place], [place] GFR/1.73 sq M predicted among non-blacks MDRD vol rate/area (S/P/Bld) 17.2 mL/min/{1.73_m2} Normal >60 [facility] Comment on above: Result Comment: Sour ce- MDRD equation with creatinine calibration to IDMS(NKDEP) eGFR not recommended for drug dose adjustment Performed By: #### H EMDF, NH33, PT, CMP3, LIPA4, CK3, TROPN, LACT3, MDIFF, PCAL #### [address] [place] [address] [address] [place], [place] Chloride molar conc 109 mmol/L High 98-107 [facility] Comment on above: Performed By: #### H EMDF, NH33, PT, CMP3, LIPA4, CK3, TROPN, LACT3, MDIFF, PCAL #### [address] [place] [address] [address] [place], [place] Sodium molar conc 140 mmol/L Normal 135-145 [facility] Comment on above: Performed By: #### H EMDF, NH33, PT, CMP3, LIPA4, CK3, TROPN, LACT3, MDIFF, PCAL #### [place] [address] [address] [place], [place] Anion gap molar conc 12 Normal [facility] Comment on above: Performed By: #### H EMDF, NH33, PT, CMP3, LIPA4, CK3, TROPN, LACT3, MDIFF, PCAL #### [address] [place] [address] [address] [place], [place] Calcium mass conc 7.8 mg/dL Low 8.4-10.4 [facility] Comment on above: Performed By: #### H EMDF, NH33, PT, CMP3, LIPA4, CK3, TROPN, LACT3, MDIFF, PCAL #### [address] [place] [address] [address] [place], [place] CO2 molar conc 32 mmol/L High 22-30 [facility] Comment on above: Performed By: #### H EMDF, NH33, PT, CMP3, LIPA4, CK3, TROPN, LACT3, MDIFF, PCAL #### [address] [place] [address] [place], [place] Glucose mass conc 133 mg/dL High 70-100 [facility] Comment on above: Performed By: #### H EMDF, NH33, PT, CMP3, LIPA4, CK3, TROPN, LACT3, MDIFF, PCAL #### [address] [place] [address] [address] [place], [place] Urea nitrogen mass conc 84 mg/dL High 7-20 S [facility] Comment on above: Performed By: #### H EMDF, NH33, PT, CMP3, LIPA4, CK3, TROPN, LACT3, MDIFF, PCAL #### [address] [place] [address] [place], [place] Creatinine mass conc 5.23 mg/dL High 0.52-1.25 [facility] Comment on above: Performed By: #### H EMDF, NH33, PT, CMP3, LIPA4, CK3, TROPN, LACT3, MDIFF, PCAL #### [address] GFR/1.73 sq M predicted among blacks MDRD vol rate/area (S/P/Bld) 12.9 mL/min/{1.73_m2} Normal >60 [facility] Comment on above: Performed By: #### H EMDF, NH33, PT, CMP3, LIPA4, CK3, TROPN, LACT3, MDIFF, PCAL #### [address] [place] [address] [place], [place] GFR/1.73 sq M predicted among non-blacks MDRD vol rate/area (S/P/Bld) 10.6 mL/min/{1.73_m2} Normal >60 [facility] Comment on above: Result Comment: Sour ce- MDRD equation with creatinine calibration to IDMS(NKDEP) eGFR not recommended for drug dose adjustment Performed By: #### H EMDF, NH33, PT, CMP3, LIPA4, CK3, TROPN, LACT3, MDIFF, PCAL #### [address] Chloride molar conc 95 mmol/L Low 98-107 [facility] Comment on above: Performed By: #### H EMDF, NH33, PT, CMP3, LIPA4, CK3, TROPN, LACT3, MDIFF, PCAL #### [address] [place] [address] [address] [place], [place] Potassium molar conc 3.4 mmol/L Low 3.5-5.1 [facility] Comment on above: Performed By: #### H EMDF, NH33, PT, CMP3, LIPA4, CK3, TROPN, LACT3, MDIFF, PCAL #### [address] [place] [address] [place], [place] Sodium molar conc 139 mmol/L Normal 135-145 [facility] Comment on above: Performed By: #### H EMDF, NH33, PT, CMP3, LIPA4, CK3, TROPN, LACT3, MDIFF, PCAL #### [address] [place] [address] [place], [place] Calcium mass conc 8.1 mg/dL Low 8.4-10.4 [facility] Comment on above: Performed By: #### H EMDF, NH33, PT, CMP3, LIPA4, CK3, TROPN, LACT3, MDIFF, PCAL #### [address] Anion gap molar conc 18 Normal [facility] Comment on above: Performed By: #### H EMDF, NH33, PT, CMP3, LIPA4, CK3, TROPN, LACT3, MDIFF, PCAL #### [address] [place] [address] [place], [place] CO2 molar conc 30 mmol/L Normal 22-30 [facility] Comment on above: Performed By: #### H EMDF, NH33, PT, CMP3, LIPA4, CK3, TROPN, LACT3, MDIFF, PCAL #### [address] Creatinine mass conc 5.38 mg/dL High 0.52-1.25 [facility] Comment on above: Performed By: #### H EMDF, NH33, PT, CMP3, LIPA4, CK3, TROPN, LACT3, MDIFF, PCAL #### [address] [place] [address] [place], [place] GFR/1.73 sq M predicted among blacks MDRD vol rate/area (S/P/Bld) 12.5 mL/min/{1.73_m2} Normal >60 [facility] Comment on above: Performed By: #### H EMDF, NH33, PT, CMP3, LIPA4, CK3, TROPN, LACT3, MDIFF, PCAL #### [address] [place] [address] [place], [place] GFR/1.73 sq M predicted among non-blacks MDRD vol rate/area (S/P/Bld) 10.3 mL/min/{1.73_m2} Normal >60 [facility] Comment on above: Result Comment: Sour ce- MDRD equation with creatinine calibration to IDMS(NKDEP) eGFR not recommended for drug dose adjustment Performed By: #### H EMDF, NH33, PT, CMP3, LIPA4, CK3, TROPN, LACT3, MDIFF, PCAL #### [address] [place] [address] [place], [place] Glucose mass conc 148 mg/dL High 70-100 [facility] Comment on above: Performed By: #### H EMDF, NH33, PT, CMP3, LIPA4, CK3, TROPN, LACT3, MDIFF, PCAL #### [place] [address] [place], [place] Urea nitrogen mass conc 78 mg/dL High 7-20 S [facility] Comment on above: Performed By: #### H EMDF, NH33, PT, CMP3, LIPA4, CK3, TROPN, LACT3, MDIFF, PCAL #### [address] Potassium molar conc 3.5 mmol/L Normal 3.5-5.1 [facility] Comment on above: Performed By: #### H EMDF, NH33, PT, CMP3, LIPA4, CK3, TROPN, LACT3, MDIFF, PCAL #### [address] Sodium molar conc 139 mmol/L Normal 135-145 [facility] Comment on above: Performed By: #### H EMDF, NH33, PT, CMP3, LIPA4, CK3, TROPN, LACT3, MDIFF, PCAL #### [facility] [address] [place] [address] Chloride molar conc 91 mmol/L Low 98-107 [facility] Comment on above: Performed By: #### H EMDF, NH33, PT, CMP3, LIPA4, CK3, TROPN, LACT3, MDIFF, PCAL #### [facility] [address] [place] [address] CR Chest Portableon 12-05-19 19 CR Chest Portable Patient Name: ELIAS SHAH Diagnostic Radiology Exam Date/Time 12/05/2018 12:50:41 EST Exam CR Chest Portable Ordering Physician MD MANINDER, SIMON Wall Accession Number [id number] CPT4 Codes 26401 () Reason For Exam cvc placement Report [...] Transcribed Date and Time: 12/05/2018 2:02 Normal [facility] Calcium,Ionizedon 12-05-2018 Ionized Ca,Measured 4.00 mg/dL Low 4.30-5.20 [facility] Comment on above: Performed By: #### H EMDF, NH33, PT, CMP3, LIPA4, CK3, TROPN, LACT3, MDIFF, PCAL #### [place] [address] [address] [place], [place] pH, Ionized Calcium 7.39 Normal 7.31-7.46 [facility] Comment on above: Performed By: #### H EMDF, NH33, PT, CMP3, LIPA4, CK3, TROPN, LACT3, MDIFF, PCAL #### [address] Hemogram w/ Autodiffon 12-05 Abs Baso Cnt 0.1 10*3/uL Normal 0.0-0.2 [facility] Comment on above: Performed By: #### H EMDF, NH33, PT, CMP3, LIPA4, CK3, TROPN, LACT3, MDIFF, PCAL #### [address] Abs Neutrophile Cnt 10.4 10*3/uL High 1.8-7.0 [facility] Comment on above: Performed By: #### H EMDF, NH33, PT, CMP3, LIPA4, CK3, TROPN, LACT3, MDIFF, PCAL #### [address] Basophils/100 WBC (Bld) 0.5 % Normal 0.0-2.0 [facility] Comment on above: Performed By: #### H EMDF, NH33, PT, CMP3, LIPA4, CK3, TROPN, LACT3, MDIFF, PCAL #### [place] [address] [place], [place] Eosinophils #/vol (Bld) 0.0 10*3/uL Normal 0.0-0.5 [facility] Comment on above: Performed By: #### H EMDF, NH33, PT, CMP3, LIPA4, CK3, TROPN, LACT3, MDIFF, PCAL #### [address] Eosinophils/100 WBC (Bld) 0.0 % Low 1.0-6.0 [facility] Comment on above: Performed By: #### H EMDF, NH33, PT, CMP3, LIPA4, CK3, TROPN, LACT3, MDIFF, PCAL #### [address] Erythrocyte distribution width Ratio (RBC) 15.7 % High 11.5-14.5 [facility] Comment on above: Performed By: #### H EMDF, NH33, PT, CMP3, LIPA4, CK3, TROPN, LACT3, MDIFF, PCAL #### [address] Granulocytes/100 WBC (Bld) 77.9 % Normal 40.0-80.0 [facility] Comment on above: Performed By: #### H EMDF, NH33, PT, CMP3, LIPA4, CK3, TROPN, LACT3, MDIFF, PCAL #### [address] Hematocrit Volume Fraction (Bld) 36.7 % Low 40.0-52.0 [facility] Comment on above: Performed By: #### H EMDF, NH33, PT, CMP3, LIPA4, CK3, TROPN, LACT3, MDIFF, PCAL #### [address] Hemoglobin mass conc (Bld) 11.9 g/dL Low 13.0-18.0 [facility] Comment on above: Performed By: #### H EMDF, NH33, PT, CMP3, LIPA4, CK3, TROPN, LACT3, MDIFF, PCAL #### [address] Lymphocytes #/vol (Bld) 0.9 10*3/uL Low 1.0-4.3 [facility] Comment on above: Performed By: #### H EMDF, NH33, PT, CMP3, LIPA4, CK3, TROPN, LACT3, MDIFF, PCAL #### [address] Lymphocytes/100 WBC (Bld) 6.6 % Low 20.0-40.0 [facility] Comment on above: Performed By: #### H EMDF, NH33, PT, CMP3, LIPA4, CK3, TROPN, LACT3, MDIFF, PCAL #### [address] MCH Entitic mass (RBC) 28.0 pg Normal 26.0-34.0 [facility] Comment on above: Performed By: #### H EMDF, NH33, PT, CMP3, LIPA4, CK3, TROPN, LACT3, MDIFF, PCAL #### [address] MCHC mass conc (RBC) 32.3 % Normal 32.0-36.0 [facility] Comment on above: Performed By: #### H EMDF, NH33, PT, CMP3, LIPA4, CK3, TROPN, LACT3, MDIFF, PCAL #### [address] MCV Entitic volume (RBC) 86.7 fL Normal 80.0-98.0 [facility] Comment on above: Performed By: #### H EMDF, NH33, PT, CMP3, LIPA4, CK3, TROPN, LACT3, MDIFF, PCAL #### [address] Monocytes #/vol (Bld) 2.0 10*3/uL High 0.0-0.8 [facility] Comment on above: Performed By: #### H EMDF, NH33, PT, CMP3, LIPA4, CK3, TROPN, LACT3, MDIFF, PCAL #### [address] Monocytes/100 WBC (Bld) 15.0 % High 2.0-10.0 [facility] Comment on above: Performed By: #### H EMDF, NH33, PT, CMP3, LIPA4, CK3, TROPN, LACT3, MDIFF, PCAL #### [address] Platelet mean volume Entitic volume (Bld) 9.1 fL Normal 7.4-10.4 [facility] Comment on above: Performed By: #### H EMDF, NH33, PT, CMP3, LIPA4, CK3, TROPN, LACT3, MDIFF, PCAL #### [address] Platelets #/vol (Bld) 218 10*3/uL Normal 140-440 [facility] Comment on above: Performed By: #### H EMDF, NH33, PT, CMP3, LIPA4, CK3, TROPN, LACT3, MDIFF, PCAL #### [address] RBC #/vol (Bld) 4.23 10*6/uL Low 4.40-5.90 [facility] Comment on above: Performed By: #### H EMDF, NH33, PT, CMP3, LIPA4, CK3, TROPN, LACT3, MDIFF, PCAL #### [address] WBC #/vol (Bld) 13.3 10*3/uL High 3.6-10.7 [facility] Comment on above: Performed By: #### H EMDF, NH33, PT, CMP3, LIPA4, CK3, TROPN, LACT3, MDIFF, PCAL #### [address] Lactic Acidon 12-05-2018 Lactate molar conc 1.0 mmol/L Normal 0.7-2.0 [facility] Comment on above: Performed By: #### H EMDF, NH33, PT, CMP3, LIPA4, CK3, TROPN, LACT3, MDIFF, PCAL #### [address] Lactate molar conc 1.1 mmol/L Normal 0.7-2.0 [facility] Comment on above: Performed By: #### H EMDF, NH33, PT, CMP3, LIPA4, CK3, TROPN, LACT3, MDIFF, PCAL #### [place] [address] [place], [place] Lactate molar conc 1.5 mmol/L Normal 0.7-2.0 [facility] Comment on above: Performed By: #### H EMDF, NH33, PT, CMP3, LIPA4, CK3, TROPN, LACT3, MDIFF, PCAL #### [place] [address] [place], [place] Lactate molar conc 1.6 mmol/L Normal 0.7-2.0 [facility] Comment on above: Performed By: #### H EMDF, NH33, PT, CMP3, LIPA4, CK3, TROPN, LACT3, MDIFF, PCAL #### [address] Magnesiumon 12-05-2018 Magnesium mass conc 1.6 mg/dL Normal 1.6-2.3 [facility] Comment on above: Performed By: #### H EMDF, NH33, PT, CMP3, LIPA4, CK3, TROPN, LACT3, MDIFF, PCAL #### [place] [address] [place], [place] Magnesium mass conc 2.3 mg/dL Normal 1.6-2.3 [facility] Comment on above: Performed By: #### H EMDF, NH33, PT, CMP3, LIPA4, CK3, TROPN, LACT3, MDIFF, PCAL #### [place] [address] [place], [place] Magnesium mass conc 2.5 mg/dL High 1.6-2.3 [facility] Comment on above: Performed By: #### H EMDF, NH33, PT, CMP3, LIPA4, CK3, TROPN, LACT3, MDIFF, PCAL #### [address] Microalbumin/Creat Ratioon 0 12-05-2018 Microalb/Creat Ratio 206.2 mg/g High 0.0-29.9 [facility] Comment on above: Performed By: #### H EMDF, NH33, PT, CMP3, LIPA4, CK3, TROPN, LACT3, MDIFF, PCAL #### [address] Microalbumin, Ur 375.0 mg/L High 0.0-17.0 [facility] Comment on above: Result Comment: Micr oalbumin concentrations <30 are considered normal, 30-300 are considered microalbuminuria (or risk of diabetic nephropathy), and >300 are considered clinical albuminuria (clinical nephropathy). Diabetes Care,27, Supplement 1, K10-03, 2003 Performed By: #### H EMDF, NH33, PT, CMP3, LIPA4, CK3, TROPN, LACT3, MDIFF, PCAL #### [place] [address] Creatinine, Ur Random 181.9 mg/dL Normal No Range [facility] Comment on above: Performed By: #### H EMDF, NH33, PT, CMP3, LIPA4, CK3, TROPN, LACT3, MDIFF, PCAL #### [address] Op Noteon 12-05-2018 Op Note PATIENT: [...] ventral hernia with strangulated bowel. Anesthesia: General. Post Anesthesia Care Unit Nurse: Dr. Van Tolliver. Complications: None. Blood Loss: Minimal. Details: The patient is an 78-year-old gentleman who presents to [facility] ER with abdominal pain, emesis, acute [...] Made 2 enterotomies, we then performed a [id number] functional, end-to-end stapled anastomosis using 75 mm [...] the Intensive Care Unit in stable condition. [facility] Job ID: [id number] Felipe Gonzáles DO DOD:12/04/2018 10:08 P MAP/dsk DOT:12/05/2018 01:14 A Job Number: [id number] Document Number: [id number] cc: Stella Bosch II, MD [address] [place] [id number] Felipe Gonzáles DO [facility] [address] [place] [address] [address] [place] [id number] Normal [facility] Osmolality,Urineon 9 Osmolality,Urine 466 mosm/kg Normal 300-1000 [facility] Comment on above: Performed By: #### H EMDF, NH33, PT, CMP3, LIPA4, CK3, TROPN, LACT3, MDIFF, PCAL #### [place] [address] [address], [place] PTH, Intacton 12-05-2018 PTH, Intact 224.6 pg/mL High 15.0-63.0 [facility] Comment on above: Performed By: #### H EMDF, NH33, PT, CMP3, LIPA4, CK3, TROPN, LACT3, MDIFF, PCAL #### [place] [address] [address] [place], [place] Phosphoruson 12-05-2018 Phosphate mass conc 5.4 mg/dL High 2.5-4.5 [facility] Comment on above: Performed By: #### H EMDF, NH33, PT, CMP3, LIPA4, CK3, TROPN, LACT3, MDIFF, PCAL #### [place] [address] [address] [place], [place] Phosphate mass conc 5.7 mg/dL High 2.5-4.5 [facility] Comment on above: Performed By: #### H EMDF, NH33, PT, CMP3, LIPA4, CK3, TROPN, LACT3, MDIFF, PCAL #### [place] [address] [address] [place], [place] Protein, Ur Randomon 019 Protein mass conc 34 mg/dL High No Range [facility] Comment on above: Performed By: #### H EMDF, NH33, PT, CMP3, LIPA4, CK3, TROPN, LACT3, MDIFF, PCAL #### [place] [address] [place], [place] Renal Functionon 12-05-2018 Calcium mass conc 8.0 mg/dL Low 8.4-10.4 [facility] Comment on above: Performed By: #### H EMDF, NH33, PT, CMP3, LIPA4, CK3, TROPN, LACT3, MDIFF, PCAL #### [place] [address] [address] [place], [place] Glucose mass conc 117 mg/dL High 70-100 [facility] Comment on above: Performed By: #### H EMDF, NH33, PT, CMP3, LIPA4, CK3, TROPN, LACT3, MDIFF, PCAL #### [facility] [address], [place] Phosphate mass conc 6.1 mg/dL High 2.5-4.5 [facility] Comment on above: Performed By: #### H EMDF, NH33, PT, CMP3, LIPA4, CK3, TROPN, LACT3, MDIFF, PCAL #### [place] [address] [address] [place], [place] Urea nitrogen mass conc 93 mg/dL High 7-20 [facility] Comment on above: Performed By: #### H EMDF, NH33, PT, CMP3, LIPA4, CK3, TROPN, LACT3, MDIFF, PCAL #### [place] [address] [address] [place], [place] Anion gap molar conc 10 Normal [facility] Comment on above: Performed By: #### H EMDF, NH33, PT, CMP3, LIPA4, CK3, TROPN, LACT3, MDIFF, PCAL #### [place] [address] [address] [place], [place] CO2 molar conc 34 mmol/L High 22-30 [facility] Comment on above: Performed By: #### H EMDF, NH33, PT, CMP3, LIPA4, CK3, TROPN, LACT3, MDIFF, PCAL #### [place] [address] [address] [place], [place] Creatinine mass conc 5.05 mg/dL High 0.52-1.25 [facility] Comment on above: Performed By: #### H EMDF, NH33, PT, CMP3, LIPA4, CK3, TROPN, LACT3, MDIFF, PCAL #### [place] [address] [address] [place], [place] GFR/1.73 sq M predicted among blacks MDRD vol rate/area (S/P/Bld) 13.4 mL/min/{1.73_m2} Normal >60 [facility] Comment on above: Performed By: #### H EMDF, NH33, PT, CMP3, LIPA4, CK3, TROPN, LACT3, MDIFF, PCAL #### [address] [address] GFR/1.73 sq M predicted among non-blacks MDRD vol rate/area (S/P/Bld) 11.1 mL/min/{1.73_m2} Normal >60 [facility] Comment on above: Result Comment: Sour ce- MDRD equation with creatinine calibration to IDMS(NKDEP) eGFR not recommended for drug dose adjustment Performed By: #### H EMDF, NH33, PT, CMP3, LIPA4, CK3, TROPN, LACT3, MDIFF, PCAL #### [address] [address] Potassium molar conc 3.9 mmol/L Normal 3.5-5.1 [facility] Comment on above: Performed By: #### H EMDF, NH33, PT, CMP3, LIPA4, CK3, TROPN, LACT3, MDIFF, PCAL #### [address] [address] Albumin mass conc 3.0 g/dL Low 3.5-5.0 [facility] Comment on above: Performed By: #### H EMDF, NH33, PT, CMP3, LIPA4, CK3, TROPN, LACT3, MDIFF, PCAL #### [address] [address] Chloride molar conc 93 mmol/L Low 98-107 [facility] Comment on above: Performed By: #### H EMDF, NH33, PT, CMP3, LIPA4, CK3, TROPN, LACT3, MDIFF, PCAL #### [address] [address] Sodium molar conc 137 mmol/L Normal 135-145 [facility] Comment on above: Performed By: #### H EMDF, NH33, PT, CMP3, LIPA4, CK3, TROPN, LACT3, MDIFF, PCAL #### [address] [address] Sodium, Ur Randomon 12-05-19 19 Sodium molar conc 34 mmol/L Normal No Range [facility] Comment on above: Performed By: #### H EMDF, NH33, PT, CMP3, LIPA4, CK3, TROPN, LACT3, MDIFF, PCAL #### [address] Thyroid Stim. Hormoneon 11-23 Thyroid Stim. Hormone 2.220 u[IU]/mL Normal 0.465-4.68 0 [facility] Comment on above: Performed By: #### H EMDF, NH33, PT, CMP3, LIPA4, CK3, TROPN, LACT3, MDIFF, PCAL #### [address] [address] Troponin Ion 12-05-2018 Troponin I.cardiac mass conc 0.467 ng/mL High 0.000-0.034 [facility] Comment on above: Result Comment: 0.04 6 - 0.400 = Indeterminate > 0.400 = Consider Myocardial Injury Performed By: #### H EMDF, NH33, PT, CMP3, LIPA4, CK3, TROPN, LACT3, MDIFF, PCAL #### [address] Troponin I.cardiac mass conc 0.716 ng/mL High 0.000-0.034 [facility] Comment on above: Result Comment: 0.04 6 - 0.400 = Indeterminate > 0.400 = Consider Myocardial Injury Performed By: #### H EMDF, NH33, PT, CMP3, LIPA4, CK3, TROPN, LACT3, MDIFF, PCAL #### [address] Troponin I.cardiac mass conc 0.952 ng/mL High 0.000-0.034 [facility] Comment on above: Result Comment: 0.04 6 - 0.400 = Indeterminate > 0.400 = Consider Myocardial Injury Performed By: #### H EMDF, NH33, PT, CMP3, LIPA4, CK3, TROPN, LACT3, MDIFF, PCAL #### [facility] [address] [place] [address] Urea Nitrogen,Ur Randomon Urea nitrogen mass conc 490 mg/dL Normal No Range [facility] Comment on above: Performed By: #### H EMDF, NH33, PT, CMP3, LIPA4, CK3, TROPN, LACT3, MDIFF, PCAL #### [facility] [address], [place] Vit D 25-OH, Totalon 019 Vit D 25-OH, Total 18 ng/mL Low 30-100 [facility] Comment on above: Result Comment: Ther apy is based on measurement of Total 25-OHD with the following classification levels: Less than 20 ng/mL: Indicative of Vit D deficiency 20-30 ng/mL: Suggests Vit D insufficiency Optimal: Greater than or equal to 30 ng/mL Test performed by [employer] Immunoassay, measuring Total Vitamin D, not individual fractions. Performed By: #### H EMDF, NH33, PT, CMP3, LIPA4, CK3, TROPN, LACT3, MDIFF, PCAL #### [place] [address] [address] [place], [place] Vitamin B12on 12-05-2018 Cobalamin (Vitamin B12) mass conc 260 pg/mL Normal 239-931 [facility] Comment on above: Performed By: #### H EMDF, NH33, PT, CMP3, LIPA4, CK3, TROPN, LACT3, MDIFF, PCAL #### [facility] [address] [place] [address] Ammoniaon 12-04-2018 Ammonia mass conc (P) 24 umol/L Normal 9-30 [facility] Comment on above: Performed By: #### H EMDF, NH33, PT, CMP3, LIPA4, CK3, TROPN, LACT3, MDIFF, PCAL #### [place] [address] [place] [address] Arterial Blood Gaseson 12-04 CO2 molar conc 30.8 mmol/L High 23.0-27.0 [facility] Comment on above: Performed By: #### H EMDF, NH33, PT, CMP3, LIPA4, CK3, TROPN, LACT3, MDIFF, PCAL #### [address] HCO3 molar conc (Bld) 29.4 mmol/L High 21.0-25.0 [facility] Comment on above: Performed By: #### H EMDF, NH33, PT, CMP3, LIPA4, CK3, TROPN, LACT3, MDIFF, PCAL #### [address] Hemoglobin mass conc (Bld) 13.9 g/dL Normal ScreenOnly [facility] Comment on above: Performed By: #### H EMDF, NH33, PT, CMP3, LIPA4, CK3, TROPN, LACT3, MDIFF, PCAL #### [address] Oxygen ppres (Bld) 102.3 mm[Hg] High 80.0-100.0 [facility] Comment on above: Performed By: #### H EMDF, NH33, PT, CMP3, LIPA4, CK3, TROPN, LACT3, MDIFF, PCAL #### [address] Oxygen saturation in Blood 97.1 % Normal 95.0-100.0 [facility] Comment on above: Performed By: #### H EMDF, NH33, PT, CMP3, LIPA4, CK3, TROPN, LACT3, MDIFF, PCAL #### [address] pCO2 46.8 mm[Hg] High 35.0-45.0 [facility] Comment on above: Performed By: #### H EMDF, NH33, PT, CMP3, LIPA4, CK3, TROPN, LACT3, MDIFF, PCAL #### [address] pH (Bld) 7.416 Normal 7.350-7.450 [facility] Comment on above: Performed By: #### H EMDF, NH33, PT, CMP3, LIPA4, CK3, TROPN, LACT3, MDIFF, PCAL #### [address] Std Base Excess 4.1 mmol/L High -3.0-3.0 [facility] Comment on above: Performed By: #### H EMDF, NH33, PT, CMP3, LIPA4, CK3, TROPN, LACT3, MDIFF, PCAL #### [address] FIO2 No data Normal [facility] Comment on above: Performed By: #### H EMDF, NH33, PT, CMP3, LIPA4, CK3, TROPN, LACT3, MDIFF, PCAL #### [address] CO2 molar conc 31.5 mmol/L High 23.0-27.0 [facility] Comment on above: Performed By: #### H EMDF, NH33, PT, CMP3, LIPA4, CK3, TROPN, LACT3, MDIFF, PCAL #### [address] HCO3 molar conc (Bld) 30.3 mmol/L High 21.0-25.0 [facility] Comment on above: Performed By: #### H EMDF, NH33, PT, CMP3, LIPA4, CK3, TROPN, LACT3, MDIFF, PCAL #### [address] Hemoglobin mass conc (Bld) 13.1 g/dL Normal [facility] Comment on above: Performed By: #### H EMDF, NH33, PT, CMP3, LIPA4, CK3, TROPN, LACT3, MDIFF, PCAL #### [address] Oxygen ppres (Bld) 430.1 mm[Hg] High 80.0-100.0 [facility] Comment on above: Performed By: #### H EMDF, NH33, PT, CMP3, LIPA4, CK3, TROPN, LACT3, MDIFF, PCAL #### [place] [address] [address] [place], [place] Oxygen saturation in Blood 99.6 % Normal 95.0-100.0 [facility] Comment on above: Performed By: #### H EMDF, NH33, PT, CMP3, LIPA4, CK3, TROPN, LACT3, MDIFF, PCAL #### [place] [address] [place], [place] pCO2 40.2 mm[Hg] Normal 35.0-45.0 [facility] Comment on above: Performed By: #### H EMDF, NH33, PT, CMP3, LIPA4, CK3, TROPN, LACT3, MDIFF, PCAL #### [place] [address] [address] [place], [place] pH (Bld) 7.495 High 7.350-7.450 [facility] Comment on above: Performed By: #### H EMDF, NH33, PT, CMP3, LIPA4, CK3, TROPN, LACT3, MDIFF, PCAL #### [place] [address] [address] [place], [place] Std Base Excess 6.5 mmol/L High -3.0-3.0 [facility] Comment on above: Performed By: #### H EMDF, NH33, PT, CMP3, LIPA4, CK3, TROPN, LACT3, MDIFF, PCAL #### [address] FIO2 100% Normal [facility] Comment on above: Performed By: #### H EMDF, NH33, PT, CMP3, LIPA4, CK3, TROPN, LACT3, MDIFF, PCAL #### [address] CKon 12-04-2018 CK enzyme act/vol 247 U/L High 30-170 [facility] Comment on above: Performed By: #### H EMDF, NH33, PT, CMP3, LIPA4, CK3, TROPN, LACT3, MDIFF, PCAL #### [facility] [address] [place] [address] CR Chest Portableon 12-04-19 19 CR Chest Portable Patient Name: ELIAS SHAH Diagnostic Radiology Exam Date/Time 12/04/2018 18:28:53 EST Exam CR Chest Portable Ordering Physician MD KAILYN, MISHA Acevedo Accession Number [id number] CPT4 Codes 29393 () Reason For Exam s/p NG tube [...] Transcribed Date and Time: 12/04/2018 6:38 Normal [facility] CR Chest Portable Patient Name: ELIAS SHAH Diagnostic Radiology Exam Date/Time 12/04/2018 17:25:31 EST Exam CR Chest Portable Ordering Physician KAY OMER MD, DONALD L Accession Number [id number] CPT4 Codes 44633 () Reason For Exam pt with altered [...] Transcribed Date and Time: 12/04/2018 5:33 Normal [facility] CT Abdomen/Pelvis w/o Contra ston 12-04-2018 CT Abdomen/Pelvis w/o Contrast Patient Name: ELIAS SHAH CT Exam Date/Time 12/04/2018 16:38:[address] Abdomen/Pelvis (No PO, No IV) Ordering Physician KAY OMER MD, STELLA Hodges Accession Number [id number] CPT4 Codes 27499 (CT Abdomen/Pelvis (No PO, No IV)) Reason [...] Transcribed Date and Time: 12/04/2018 4:58 Normal [facility] CT Head or Brain w/o Contras ton 12-04-2018 CT Head or Brain w/o Contrast Patient Name: ELIAS SHAH CT Exam Date/Time 12/04/2018 16:38:[address] Head or Brain w/o Contrast Ordering Physician KAY OMER MD, STELLA Hodges Accession Number [id number] CPT4 Codes 90148 () Reason For Exam pt with altered [...] Transcribed Date and Time: 12/04/2018 4:45 Normal [facility] Comp Metabolic Panelon 12-04 ALP enzyme act/vol 110 U/L Normal 38-126 [facility] Comment on above: Performed By: #### H EMDF, NH33, PT, CMP3, LIPA4, CK3, TROPN, LACT3, MDIFF, PCAL #### [facility] [address], [place] ALT enzyme act/vol 19 U/L Normal 13-69 [facility] Comment on above: Performed By: #### H EMDF, NH33, PT, CMP3, LIPA4, CK3, TROPN, LACT3, MDIFF, PCAL #### [place] [address] [address] [place], [place] Anion gap molar conc 21 Normal [facility] Comment on above: Performed By: #### H EMDF, NH33, PT, CMP3, LIPA4, CK3, TROPN, LACT3, MDIFF, PCAL #### [place] [address] [address] [place], [place] AST enzyme act/vol 40 U/L Normal 15-46 [facility] Comment on above: Performed By: #### H EMDF, NH33, PT, CMP3, LIPA4, CK3, TROPN, LACT3, MDIFF, PCAL #### [place] [address] [place], [place] Calcium mass conc 10.2 mg/dL Normal 8.4-10.4 [facility] Comment on above: Performed By: #### H EMDF, NH33, PT, CMP3, LIPA4, CK3, TROPN, LACT3, MDIFF, PCAL #### [place] [address] [address] [place], [place] CO2 molar conc 31 mmol/L High 22-30 [facility] Comment on above: Performed By: #### H EMDF, NH33, PT, CMP3, LIPA4, CK3, TROPN, LACT3, MDIFF, PCAL #### [place] [address] [address] [place], [place] Glucose mass conc 170 mg/dL High 70-100 [facility] Comment on above: Performed By: #### H EMDF, NH33, PT, CMP3, LIPA4, CK3, TROPN, LACT3, MDIFF, PCAL #### [place] [address] [address] [place], [place] Protein mass conc 9.1 g/dL High 6.3-8.2 [facility] Comment on above: Performed By: #### H EMDF, NH33, PT, CMP3, LIPA4, CK3, TROPN, LACT3, MDIFF, PCAL #### [place] [address] [address] [place], [place] Urea nitrogen mass conc 73 mg/dL High 7-20 S [facility] Comment on above: Performed By: #### H EMDF, NH33, PT, CMP3, LIPA4, CK3, TROPN, LACT3, MDIFF, PCAL #### [place] [address] [address] [place], [place] Bilirubin mass conc 1.0 mg/dL Normal 0.2-1.3 [facility] Comment on above: Performed By: #### H EMDF, NH33, PT, CMP3, LIPA4, CK3, TROPN, LACT3, MDIFF, PCAL #### [place] [address] [place], [place] Creatinine mass conc 5.53 mg/dL High 0.52-1.25 [facility] Comment on above: Performed By: #### H EMDF, NH33, PT, CMP3, LIPA4, CK3, TROPN, LACT3, MDIFF, PCAL #### [place] [address] [address] [place], [place] GFR/1.73 sq M predicted among blacks MDRD vol rate/area (S/P/Bld) 12.1 mL/min/{1.73_m2} Normal >60 [facility] Comment on above: Performed By: #### H EMDF, NH33, PT, CMP3, LIPA4, CK3, TROPN, LACT3, MDIFF, PCAL #### [place] [address] [place], [place] GFR/1.73 sq M predicted among non-blacks MDRD vol rate/area (S/P/Bld) 10.0 mL/min/{1.73_m2} Normal >60 [facility] Comment on above: Result Comment: Sour ce- MDRD equation with creatinine calibration to IDMS(NKDEP) eGFR not recommended for drug dose adjustment Performed By: #### H EMDF, NH33, PT, CMP3, LIPA4, CK3, TROPN, LACT3, MDIFF, PCAL #### [place] [address] [place], [place] Albumin mass conc 4.8 g/dL Normal 3.5-5.0 [facility] Comment on above: Performed By: #### H EMDF, NH33, PT, CMP3, LIPA4, CK3, TROPN, LACT3, MDIFF, PCAL #### [place] [address] [place], [place] Chloride molar conc 87 mmol/L Low 98-107 [facility] Comment on above: Performed By: #### H EMDF, NH33, PT, CMP3, LIPA4, CK3, TROPN, LACT3, MDIFF, PCAL #### [place] [address] [place], [place] Potassium molar conc 3.4 mmol/L Low 3.5-5.1 [facility] Comment on above: Performed By: #### H EMDF, NH33, PT, CMP3, LIPA4, CK3, TROPN, LACT3, MDIFF, PCAL #### [address] Sodium molar conc 140 mmol/L Normal 135-145 [facility] Comment on above: Performed By: #### H EMDF, NH33, PT, CMP3, LIPA4, CK3, TROPN, LACT3, MDIFF, PCAL #### [facility] [address] [address] ED Provider Noteon 9 Protein mass conc Emergency Department Encounter [facility] EMERGENCY DEPT Patient: Elias Shah : 1940 [...] 2 and is in a-fib with rvr NANWALEK Elias Shah is a 78 y.o. male [...] eGFR 12.1 >60 mL/min EGFR IF NonAfrican Guinean 10.0 >60 mL/min Calcium 10.2 8.4 - [...] 0.8 (L) 1.1 - 4.5 10*3/uL Absolute [place] # 2.9 (H) 0.2 - 1.1 10*3/uL [...] KAY OMER MD, DONALD L Accession Number [id number] CPT4 Codes 11982 () Reason For Exam pt with altered [...] Physician MD AVINA MAZEN E Accession Number [id number] CPT4 Codes 47320 () Reason For Exam s/p NG tube [...] KAY OMER MD, DONALD L Accession Number [id number] CPT4 Codes 91793 () Reason For Exam pt with altered [...] KAY OMER MD, DONALD L Accession Number [id number] CPT4 Codes 30831 (CT Abdomen/Pelvis (No PO, No IV)) Reason [...] DISPOSITION Decision To Admit 12/04/2018 03:03:44 PM [facility] (Please note that portions of this note may have been completed with a voice recognition program. Efforts were made to edit the dictations but occasionally words are mis-transcribed.) Stella Bosch MD [employer] Stella Bosch MD 12/04/18 1900 Normal [facility] Hemogramon 12-04-2018 Erythrocyte distribution width Ratio (RBC) 15.5 % High 11.5-14.5 [facility] Comment on above: Performed By: #### H EMDF, NH33, PT, CMP3, LIPA4, CK3, TROPN, LACT3, MDIFF, PCAL #### [address] Hematocrit Volume Fraction (Bld) 40.0 % Normal 40.0-52.0 [facility] Comment on above: Performed By: #### H EMDF, NH33, PT, CMP3, LIPA4, CK3, TROPN, LACT3, MDIFF, PCAL #### [address] Hemoglobin mass conc (Bld) 13.2 g/dL Normal 13.0-18.0 [facility] Comment on above: Result Comment: repe ated Performed By: #### H EMDF, NH33, PT, CMP3, LIPA4, CK3, TROPN, LACT3, MDIFF, PCAL #### [address] MCH Entitic mass (RBC) 28.3 pg Normal 26.0-34.0 [facility] Comment on above: Performed By: #### H EMDF, NH33, PT, CMP3, LIPA4, CK3, TROPN, LACT3, MDIFF, PCAL #### [address] MCHC mass conc (RBC) 33.1 % Normal 32.0-36.0 [facility] Comment on above: Performed By: #### H EMDF, NH33, PT, CMP3, LIPA4, CK3, TROPN, LACT3, MDIFF, PCAL #### [address] MCV Entitic volume (RBC) 85.6 fL Normal 80.0-98.0 [facility] Comment on above: Performed By: #### H EMDF, NH33, PT, CMP3, LIPA4, CK3, TROPN, LACT3, MDIFF, PCAL #### [address] Platelet mean volume Entitic volume (Bld) 8.8 fL Normal 7.4-10.4 [facility] Comment on above: Performed By: #### H EMDF, NH33, PT, CMP3, LIPA4, CK3, TROPN, LACT3, MDIFF, PCAL #### [address] Platelets #/vol (Bld) 236 10*3/uL Normal 140-440 [facility] Comment on above: Performed By: #### H EMDF, NH33, PT, CMP3, LIPA4, CK3, TROPN, LACT3, MDIFF, PCAL #### [address] RBC #/vol (Bld) 4.67 10*6/uL Normal 4.40-5.90 [facility] Comment on above: Performed By: #### H EMDF, NH33, PT, CMP3, LIPA4, CK3, TROPN, LACT3, MDIFF, PCAL #### [address] WBC #/vol (Bld) 13.6 10*3/uL High 3.6-10.7 [facility] Comment on above: Performed By: #### H EMDF, NH33, PT, CMP3, LIPA4, CK3, TROPN, LACT3, MDIFF, PCAL #### [address] Hemogram w/ Autodiffon 12-04 Erythrocyte distribution width Ratio (RBC) 15.2 % High 11.5-14.5 [facility] Comment on above: Performed By: #### H EMDF, NH33, PT, CMP3, LIPA4, CK3, TROPN, LACT3, MDIFF, PCAL #### [address] Hematocrit Volume Fraction (Bld) 48.2 % Normal 40.0-52.0 [facility] Comment on above: Performed By: #### H EMDF, NH33, PT, CMP3, LIPA4, CK3, TROPN, LACT3, MDIFF, PCAL #### [address] Hemoglobin mass conc (Bld) 15.7 g/dL Normal 13.0-18.0 [facility] Comment on above: Performed By: #### H EMDF, NH33, PT, CMP3, LIPA4, CK3, TROPN, LACT3, MDIFF, PCAL #### [address] MCH Entitic mass (RBC) 28.2 pg Normal 26.0-34.0 [facility] Comment on above: Performed By: #### H EMDF, NH33, PT, CMP3, LIPA4, CK3, TROPN, LACT3, MDIFF, PCAL #### [address] MCHC mass conc (RBC) 32.6 % Normal 32.0-36.0 [facility] Comment on above: Performed By: #### H EMDF, NH33, PT, CMP3, LIPA4, CK3, TROPN, LACT3, MDIFF, PCAL #### [address] MCV Entitic volume (RBC) 86.6 fL Normal 80.0-98.0 [facility] Comment on above: Performed By: #### H EMDF, NH33, PT, CMP3, LIPA4, CK3, TROPN, LACT3, MDIFF, PCAL #### [address] Platelet mean volume Entitic volume (Bld) 9.3 fL Normal 7.4-10.4 [facility] Comment on above: Performed By: #### H EMDF, NH33, PT, CMP3, LIPA4, CK3, TROPN, LACT3, MDIFF, PCAL #### [address] Platelets #/vol (Bld) 320 10*3/uL Normal 140-440 [facility] Comment on above: Performed By: #### H EMDF, NH33, PT, CMP3, LIPA4, CK3, TROPN, LACT3, MDIFF, PCAL #### [place] [address] [address], [place] RBC #/vol (Bld) 5.57 10*6/uL Normal 4.40-5.90 [facility] Comment on above: Performed By: #### H EMDF, NH33, PT, CMP3, LIPA4, CK3, TROPN, LACT3, MDIFF, PCAL #### [place] [address] [place], [place] WBC #/vol (Bld) 15.2 10*3/uL High 3.6-10.7 [facility] Comment on above: Performed By: #### H EMDF, NH33, PT, CMP3, LIPA4, CK3, TROPN, LACT3, MDIFF, PCAL #### [address] Lactic Acidon 12-04-2018 Lactate molar conc 1.6 mmol/L Normal 0.7-2.0 [facility] Comment on above: Performed By: #### H EMDF, NH33, PT, CMP3, LIPA4, CK3, TROPN, LACT3, MDIFF, PCAL #### [address] Lactate molar conc 3.5 mmol/L Critically high 0.7-2.0 [facility] Comment on above: Result Comment: Repe ated Performed By: #### H EMDF, NH33, PT, CMP3, LIPA4, CK3, TROPN, LACT3, MDIFF, PCAL #### [place] [address] [place], [place] Lipaseon 12-04-2018 Lipase enzyme act/vol 257 U/L Normal 23-300 [facility] Comment on above: Performed By: #### H EMDF, NH33, PT, CMP3, LIPA4, CK3, TROPN, LACT3, MDIFF, PCAL #### [address] Manual Diffon 12-04-2018 Abs Neutrophile Cnt 11.6 10*3/uL High 2.2-8.2 [facility] Comment on above: Performed By: #### H EMDF, NH33, PT, CMP3, LIPA4, CK3, TROPN, LACT3, MDIFF, PCAL #### [place] [address] [place], [place] Anisocytosis Ql (Bld) Slight Normal [facility] Comment on above: Performed By: #### H EMDF, NH33, PT, CMP3, LIPA4, CK3, TROPN, LACT3, MDIFF, PCAL #### [place] [address] [place], [place] Lymphocytes #/vol (Bld) 0.8 10*3/uL Low 1.1-4.5 [facility] Comment on above: Performed By: #### H EMDF, NH33, PT, CMP3, LIPA4, CK3, TROPN, LACT3, MDIFF, PCAL #### [place] [address] [place], [place] Lymphocytes/100 WBC (Bld) 5 % Low 20-40 [facility] Comment on above: Performed By: #### H EMDF, NH33, PT, CMP3, LIPA4, CK3, TROPN, LACT3, MDIFF, PCAL #### [address] Monocytes #/vol (Bld) 2.9 10*3/uL High 0.2-1.1 [facility] Comment on above: Performed By: #### H EMDF, NH33, PT, CMP3, LIPA4, CK3, TROPN, LACT3, MDIFF, PCAL #### [place] [address] [place], [place] Monocytes/100 WBC (Bld) 19 % High 2-10 [facility] Comment on above: Performed By: #### H EMDF, NH33, PT, CMP3, LIPA4, CK3, TROPN, LACT3, MDIFF, PCAL #### [place] [address] [place], [place] RBC morphology finding Nom (Bld) Normal Normal [facility] Comment on above: Performed By: #### H EMDF, NH33, PT, CMP3, LIPA4, CK3, TROPN, LACT3, MDIFF, PCAL #### [address] Seg Neutrophils 76 % Normal 40-80 [facility] Comment on above: Performed By: #### H EMDF, NH33, PT, CMP3, LIPA4, CK3, TROPN, LACT3, MDIFF, PCAL #### [address] Abs Baso Cnt 0.0 10*3/uL Normal 0.0-0.2 [facility] Comment on above: Performed By: #### H EMDF, NH33, PT, CMP3, LIPA4, CK3, TROPN, LACT3, MDIFF, PCAL #### [address] Bands 0 % Normal 0-3 [facility] Comment on above: Performed By: #### H EMDF, NH33, PT, CMP3, LIPA4, CK3, TROPN, LACT3, MDIFF, PCAL #### [address] Basophils/100 WBC (Bld) 0 % Normal 0-2 S [facility] Comment on above: Performed By: #### H EMDF, NH33, PT, CMP3, LIPA4, CK3, TROPN, LACT3, MDIFF, PCAL #### [address] Cells counted 100 Normal [facility] Comment on above: Performed By: #### H EMDF, NH33, PT, CMP3, LIPA4, CK3, TROPN, LACT3, MDIFF, PCAL #### [address] Eosinophils #/vol (Bld) 0.0 10*3/uL Normal 0.0-0.5 [facility] Comment on above: Performed By: #### H EMDF, NH33, PT, CMP3, LIPA4, CK3, TROPN, LACT3, MDIFF, PCAL #### [address] Eosinophils/100 WBC (Bld) 0 % Low 1-6 [facility] Comment on above: Performed By: #### H EMDF, NH33, PT, CMP3, LIPA4, CK3, TROPN, LACT3, MDIFF, PCAL #### [address] Procalcitoninon 12-04-2018 Protein mass conc 0.79 ng/mL Abnormal <0.10 [facility] Comment on above: Performed By: #### H EMDF, NH33, PT, CMP3, LIPA4, CK3, TROPN, LACT3, MDIFF, PCAL #### [address] Interpretation See Below Normal [facility] Comment on above: Result Comment: PCT <0.50 = Low risk of severe sepsis and/or septic shock. PCT >2.00 = High risk of severe sepsis and/or septic shock. Performed By: #### H EMDF, NH33, PT, CMP3, LIPA4, CK3, TROPN, LACT3, MDIFF, PCAL #### [address] Prothrombin Timeon 9 INR Coag RelTime (PPP) 1.2 High 0.9-1.1 [facility] Comment on above: Result Comment: Gonzalo [...] LIPA4, CK3, TROPN, LACT3, MDIFF, PCAL #### [address] [place] [address] Prothrombin time (PT) Coag time (PPP) 11.9 s Normal 9.0-12.0 [facility] Comment on above: Result Comment: . Performed By: #### H EMDF, NH33, PT, CMP3, LIPA4, CK3, TROPN, LACT3, MDIFF, PCAL #### [facility] [address] [place] [address] Surgical Pathologyon 019 Surgical Pathology [id number] [facility] DEPARTMENT OF [facility] 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 MARGINS: UNREMARKABLE. PORTIONS OF FIBROADIPOSE, CONSISTENT WITH HERNIA SAC. NEGATIVE FOR MALIGNANCY. AL/JAF Signature> RANDAL GAN M.D. CLINICAL INFORMATION: Not [...] of hemorrhage or friability are identified. Multiple independent sales representative sections of the specimen are [...] characteristics determined by the clinical laboratories of [facility] [employer] [facility]. They have not been cleared by [...] negativity on decalcified specimens. Professional Performing Location: [facility] [address] [place] [address]. DEPARTMENT OF PATHOLOGY AND LABORATORY MEDICINE [place], [place] [address] Normal [facility] TS GELon 12-04-2018 TS GEL ABO Group: O Rh, Gel: POS Antibody Screen Gel: NEG Normal [facility] Comment on above: Performed By: #### H EMDF, NH33, PT, CMP3, LIPA4, CK3, TROPN, LACT3, MDIFF, PCAL #### [facility] [address] [place] [address] Troponin Ion 12-04-2018 Troponin I.cardiac mass conc 0.947 ng/mL High 0.000-0.034 [facility] Comment on above: Result Comment: 0.04 6 - 0.400 = Indeterminate > 0.400 = Consider Myocardial Injury Performed By: #### H EMDF, NH33, PT, CMP3, LIPA4, CK3, TROPN, LACT3, MDIFF, PCAL #### [facility] [address] [place] [address] No Panel Information Influenza Types A,B Direct FA (RYLAN) [facility] Work Phone: RSV Ag EIA RSV Ag Immune stain Ql (Tiss) [facility] Work Phone: Vital Signs Date Time Vital Sign Value Performing Clinician Faci lity 08-24-2025 11:42-0400 Body temperature 96.3 [degF] Dr. Geoffrey Garza MD Work Phone: [facility] 08-24-2025 11:42-0400 Diastolic blood pressure 69 mm[Hg] Dr. Geoffrey Garza MD Work Phone: [facility] 08-24-2025 11:42-0400 Heart rate 87 /min Dr. Geoffrey Garza MD Work Phone: [facility] 08-24-2025 11:42-0400 Respiratory rate 14 /min Dr. Geoffrey Garza MD Work Phone: [facility] 08-24-2025 11:42-0400 SaO2% (BldA) [Mass fraction] 98 % Dr. Geoffrey Garza MD Work Phone: 1(650)850-547989 [place] [address] 08-24-2025 11:42-0400 Systolic blood pressure 128 mm[Hg] Dr. Geoffrey aGrza MD Work Phone: 9(408)050-690389 [place] [address] 08-24-2025 09:50-0400 Body height 175.[address] Geoffrey Garza MD Work Phone: 7(927)692-026289 [place] [address] 08-24-2025 09:50-0400 Body mass index (BMI) [Ratio] 27 kg/m2 Dr. Geoffrey Garza MD Work Phone: 7(569)636-055289 [place] [address] 08-24-2025 09:50-0400 Body weight [address] Geoffrey Garza MD Work Phone: 1(664)351-516889 [place] [address] 08-24-2025 08:50-0400 Body temperature 97.3 [degF] Dr. Geoffrey Garza MD Work Phone: 8(032)901-754489 [place] [address] 08-24-2025 08:50-0400 Body weight 90.[address] Geoffrey Garza MD Work Phone: 7(643)320-577889 [place] [address] 08-24-2025 08:50-0400 Diastolic blood pressure 64 mm[Hg] Dr. Geoffrey Garza MD Work Phone: 5(797)925-706589 [place] [address] 08-24-2025 08:50-0400 Heart rate 98 /min Dr. Geoffrey Garza MD Work Phone: 9(128)262-859989 [place] [address] 08-24-2025 08:50-0400 Respiratory rate 14 /min Dr. Geoffrey Garza MD Work Phone: 4(421)445-535489 [place] [address] 08-24-2025 08:50-0400 SaO2% (BldA) [Mass fraction] 97 % Dr. Geoffrey Garza MD Work Phone: 9(614)248-729789 [place] [address] 08-24-2025 08:50-0400 Systolic blood pressure 111 mm[Hg] Dr. Geoffrey Garza MD Work Phone: [facility] 08-08-2025 14:06-0400 Body temperature 98 [degF] Dr. Geoffrey Garza MD Work Phone: [facility] 08-08-2025 14:06-0400 Diastolic blood pressure 65 mm[Hg] Dr. Geoffrey Garza MD Work Phone: [facility] 08-08-2025 14:06-0400 Heart rate 84 /min Dr. Geoffrey Garza MD Work Phone: [facility] 08-08-2025 14:06-0400 Respiratory rate 16 /min Dr. Geoffrey Garza MD Work Phone: [facility] 08-08-2025 14:06-0400 SaO2% (BldA) [Mass fraction] 100 % Dr. Geoffrey Garza MD Work Phone: [facility] 08-08-2025 14:06-0400 Systolic blood pressure 137 mm[Hg] Dr. Geoffrey Garza MD Work Phone: [facility] 08-07-2025 11:20-0400 Body height 175.[address] Geoffrey Garza MD Work Phone: [facility] 08-07-2025 11:20-0400 Body weight 91.[address] Geoffrey Garza MD Work Phone: [facility] 08-07-2025 08:08-0400 Body temperature 97.3 [degF] Dr. Geoffrey Garza MD Work Phone: [facility] 08-07-2025 08:08-0400 Diastolic blood pressure 92 mm[Hg] Dr. Geoffrey Garza MD Work Phone: [facility] 08-07-2025 08:08-0400 Heart rate 111 /min Dr. Geoffrey Garza MD Work Phone: [facility] 08-07-2025 08:08-0400 Respiratory rate 17 /min Dr. Geoffrey Garza MD Work Phone: [facility] 08-07-2025 08:08-0400 SaO2% (BldA) [Mass fraction] 98 % Dr. Geoffrey Garza MD Work Phone: [facility] 08-07-2025 08:08-0400 Systolic blood pressure 135 mm[Hg] Dr. Geoffrey Garza MD Work Phone: [facility] 08-04-2025 17:53-0400 Body height 175.[address] Geoffrey Garza MD Work Phone: 1(146)229-722889 [place] [address] 08-04-2025 17:53-0400 Body mass index (BMI) [Ratio] 29.7 kg/m2 Dr. Geoffrey Garza MD Work Phone: 2(978)291-765776 [address] 08-04-2025 17:53-0400 Body weight 91.[address] Geoffrey Garza MD Work Phone: 2(175)489-772775 [place] [address] 08-04-2025 16:43-0400 Body temperature 97.9 [degF] Dr. Geoffrey Garza MD Work Phone: [facility] 08-04-2025 16:43-0400 Diastolic blood pressure 71 mm[Hg] Dr. Geoffrey Garza MD Work Phone: [facility] 08-04-2025 16:43-0400 Heart rate 89 /min Dr. Geoffrey Garza MD Work Phone: [facility] 08-04-2025 16:43-0400 Respiratory rate 18 /min Dr. Geoffrey Garza MD Work Phone: [facility] 08-04-2025 16:43-0400 SaO2% (BldA) [Mass fraction] 97 % Dr. Geoffrey Garza MD Work Phone: [facility] 08-04-2025 16:43-0400 Systolic blood pressure 125 mm[Hg] Dr. Geoffrey Garza MD Work Phone: [facility] 08-04-2025 14:29-0400 Diastolic blood pressure 64 mm[Hg] Dr. Geoffrey Garza MD Work Phone: [facility] 08-04-2025 14:29-0400 Heart rate 92 /min Dr. Geoffrey Garza MD Work Phone: [facility] 08-04-2025 14:29-0400 Respiratory rate 19 /min Dr. Geoffrey Garza MD Work Phone: [facility] 08-04-2025 14:29-0400 SaO2% (BldA) [Mass fraction] 96 % Dr. Geoffrey Garza MD Work Phone: [facility] 08-04-2025 14:29-0400 Systolic blood pressure 115 mm[Hg] Dr. Geoffrey Garza MD Work Phone: [facility] 08-04-2025 11:43-0400 Body height 175.[address] Geoffrey Garza MD Work Phone: [facility] 08-04-2025 11:43-0400 Body mass index (BMI) [Ratio] 29.7 kg/m2 Dr. Geoffrey Garza MD Work Phone: [facility] 08-04-2025 11:43-0400 Body temperature 98.5 [degF] Dr. Geoffrey Garza MD Work Phone: [facility] 08-04-2025 11:43-0400 Body weight 91.[address] Geoffrey Garza MD Work Phone: [facility] 08-02-2025 07:05-0400 Body height 175.[address] Geoffrey Garza MD Work Phone: [facility] 08-02-2025 07:05-0400 Body weight 94.[address] Geoffrey Garza MD Work Phone: [facility] 08-01-2025 15:02-0400 Body temperature 99.3 [degF] Dr. Geoffrey Garza MD Work Phone: [facility] 08-01-2025 15:02-0400 Body weight 92.[address] Geoffrey Garza MD Work Phone: [facility] 08-01-2025 15:02-0400 Diastolic blood pressure 55 mm[Hg] Dr. Geoffrey Garza MD Work Phone: [facility] 08-01-2025 15:02-0400 Heart rate 69 /min Dr. Geoffrey Garza MD Work Phone: [facility] 08-01-2025 15:02-0400 Respiratory rate 14 /min Dr. Geoffrey Garza MD Work Phone: [facility] 08-01-2025 15:02-0400 SaO2% (BldA) [Mass fraction] 96 % Dr. Geoffrey Garza MD Work Phone: [facility] 08-01-2025 15:02-0400 Systolic blood pressure 124 mm[Hg] Dr. Geoffrey Garza MD Work Phone: [facility] 08-01-2025 08:29-0400 Body mass index (BMI) [Ratio] 30.8 kg/m2 Dr. Geoffrey Garza MD Work Phone: [facility] 07-27-2025 20:22-0400 Body temperature 98.8 [degF] Dr. Geoffrey Garza MD Work Phone: [facility] 07-27-2025 20:22-0400 Diastolic blood pressure 75 mm[Hg] Dr. Geoffrey Garza MD Work Phone: [facility] 07-27-2025 20:22-0400 Heart rate 73 /min Dr. Geoffrey Garza MD Work Phone: [facility] 07-27-2025 20:22-0400 Respiratory rate 21 /min Dr. Geoffrey Garza MD Work Phone: [facility] 07-27-2025 20:22-0400 SaO2% (BldA) [Mass fraction] 95 % Dr. Geoffrey Garza MD Work Phone: [facility] 07-27-2025 20:22-0400 Systolic blood pressure 163 mm[Hg] Dr. Geoffrey Garza MD Work Phone: [facility] 07-27-2025 14:22-0400 Body height 175.[address] Geoffrey Garza MD Work Phone: [facility] 07-27-2025 14:22-0400 Body mass index (BMI) [Ratio] 26.9 kg/m2 Dr. Geoffrey Garza MD Work Phone: [facility] 07-27-2025 14:22-0400 Body weight 82.[address] Geoffrey Garza MD Work Phone: [facility] 06-22-2025 10:01-0400 Body height 175.[address] Geoffrey Garza MD Work Phone: [facility] 06-22-2025 10:01-0400 Body mass index (BMI) [Ratio] 29.9 kg/m2 Dr. Geoffrey Garza MD Work Phone: [facility] 06-22-2025 10:01-0400 Body weight 92.[address] Geoffrey Garza MD Work Phone: [facility] 06-22-2025 10:01-0400 Diastolic blood pressure 76 mm[Hg] Dr. Geoffrey Garza MD Work Phone: [facility] 06-22-2025 10:01-0400 Heart rate 65 /min Dr. Geoffrey Garza MD Work Phone: [facility] 06-22-2025 10:01-0400 Respiratory rate 18 /min Dr. Geoffrey Garza MD Work Phone: [facility] 06-22-2025 10:01-0400 Systolic blood pressure 119 mm[Hg] Dr. Geoffrey Garza MD Work Phone: [facility] 05-22-2025 10:44-0400 Body height 175.[address] Geoffrey Garza MD Work Phone: 9(267)029-151175 [place] [address] 05-22-2025 10:44-0400 Body mass index (BMI) [Ratio] 29.6 kg/m2 Dr. Geoffrey Garza MD Work Phone: 1(591)024-422989 [place] [address] 05-22-2025 10:44-0400 Body temperature 98.2 [degF] Dr. Geoffrey Garza MD Work Phone: 7(437)280-244589 [place] [address] 05-22-2025 10:44-0400 Body weight 90.[address] Geoffrey Garza MD Work Phone: 8(082)810-863089 [place] [address] 05-22-2025 10:44-0400 Diastolic blood pressure 65 mm[Hg] Dr. Geoffrey Garza MD Work Phone: 9(973)257-522875 [place] [address] 05-22-2025 10:44-0400 Heart rate 59 /min Dr. Geoffrey Garza MD Work Phone: 4(631)985-957789 [place] [address] 05-22-2025 10:44-0400 Respiratory rate 16 /min Dr. Geoffrey Garza MD Work Phone: 3(489)318-481689 [place] [address] 05-22-2025 10:44-0400 SaO2% (BldA) [Mass fraction] 95 % Dr. Geoffrey Garza MD Work Phone: 9(173)637-514375 [place] [address] 05-22-2025 10:44-0400 Systolic blood pressure 160 mm[Hg] Dr. Geoffrey Garza MD Work Phone: 0(186)374-854475 [place] [address] 07-13-2023 14:42-0400 Body height 175.26 cm MD Husam Khan [facility] 07-13-2023 14:42-0400 Body mass index (BMI) [Ratio] 29.5 kg/m2 MD Husam Khan [facility] 07-13-2023 14:42-0400 Body temperature 97.5 [degF] MD Husam BACON [facility] 07-13-2023 14:42-0400 Body weight 90.[address] [facility] Bill [facility] 07-13-2023 14:42-0400 Diastolic blood pressure 75 mm[Hg] [facility] Bill [facility] 07-13-2023 14:42-0400 Heart rate 82 /min [facility] Bill [facility] 07-13-2023 14:42-0400 Respiratory rate 16 /min [facility] Bill [facility] 07-13-2023 14:42-0400 SaO2% (BldA) [Mass fraction] 97 % [facility] Bill [facility] 07-13-2023 14:42-0400 Systolic blood pressure 154 mm[Hg] [facility] Bill [facility] 03-18-2023 14:00-0400 Body mass index (BMI) [Ratio] 29.2 kg/m2 [facility] Bill [facility] 03-18-2023 14:00-0400 Body weight 89.[address] [facility] Bill [facility] 03-18-2023 14:00-0400 Diastolic blood pressure 73 mm[Hg] [facility] Bill [facility] 03-18-2023 14:00-0400 Heart rate 60 /min [facility] Bill [facility] 03-18-2023 14:00-0400 Respiratory rate 18 /min [facility] Bill [facility] 03-18-2023 14:00-0400 Systolic blood pressure 156 mm[Hg] [facility] Bill [facility] 09-23-2022 10:21-0400 Body height 175.26 cm [facility] Work Phone: 09-23-2022 10:21-0400 Body mass index (BMI) [Ratio] 29.5 kg/m2 [facility] Work Phone: 09-23-2022 10:21-0400 Body weight 90.[address] [facility] Bill [facility] Work Phone: 09-23-2022 10:21-0400 Diastolic blood pressure 6 mm[Hg] [facility] Work Phone: 09-23-2022 10:21-0400 Heart rate 59 /min [facility] Work Phone: 09-23-2022 10:21-0400 Respiratory rate 18 /min [facility] Work Phone: 09-23-2022 10:21-0400 SaO2% (BldA) [Mass fraction] 96 % [facility] Work Phone: 09-23-2022 10:21-0400 Systolic blood pressure 137 mm[Hg] [facility] Work Phone: 07-14-2022 14:28-0400 Body height 175.26 cm [facility] Work Phone: 07-14-2022 14:22-0400 Body mass index (BMI) [Ratio] 29.3 kg/m2 [facility] Work Phone: 07-14-2022 14:22-0400 Body temperature 98.6 [degF] [facility] Work Phone: 07-14-2022 14:22-0400 Body weight 90.26 kg [facility] Work Phone: 07-14-2022 14:22-0400 Diastolic blood pressure 65 mm[Hg] [facility] Work Phone: 07-14-2022 14:22-0400 Heart rate 62 /min [facility] Work Phone: 07-14-2022 14:22-0400 Respiratory rate 15 /min [facility] Work Phone: 07-14-2022 14:22-0400 SaO2% (BldA) [Mass fraction] 94 % [facility] Work Phone: 07-14-2022 14:22-0400 Systolic blood pressure 162 mm[Hg] [facility] Work Phone: 01-14-2022 11:57-0500 Body height 175.26 cm [facility] Work Phone: 01-14-2022 11:57-0500 Body weight 93.89 kg [facility] Work Phone: 01-14-2022 11:57-0500 Diastolic blood pressure 67 mm[Hg] [facility] Work Phone: 01-14-2022 11:57-0500 Heart rate 55 /min [facility] Work Phone: 01-14-2022 11:57-0500 Respiratory rate 18 /min [facility] Work Phone: 01-14-2022 11:57-0500 SaO2% (BldA) [Mass fraction] 96 % [facility] Work Phone: 01-14-2022 11:57-0500 Systolic blood pressure 172 mm[Hg] [facility] Work Phone: 01-13-2022 14:12-0500 Body mass index (BMI) [Ratio] 30.6 kg/m2 [facility] Work Phone: 01-13-2022 14:12-0500 Body temperature 98.2 [degF] [facility] Work Phone: 01-13-2022 14:12-0500 Body weight 94 kg [facility] Work Phone: 01-13-2022 14:12-0500 Diastolic blood pressure 78 mm[Hg] [facility] Work Phone: 01-13-2022 14:12-0500 Heart rate 57 /min [facility] Work Phone: 01-13-2022 14:12-0500 Respiratory rate 16 /min [facility] Work Phone: 01-13-2022 14:12-0500 SaO2% (BldA) [Mass fraction] 96 % [facility] Work Phone: 01-13-2022 14:12-0500 Systolic blood pressure 159 mm[Hg] [facility] Work Phone: 06-27-2021 14:22-0400 Body mass index (BMI) [Ratio] 30.6 kg/m2 Dr. Geoffrey Garza MD Work Phone: [facility] 06-27-2021 14:22-0400 Body mass index (BMI) [Ratio] 30.6 kg/m2 [facility] Work Phone: 06-14-2021 14:45-0400 Body mass index (BMI) [Ratio] 29.5 kg/m2 [facility] Work Phone: 02-18-2021 14:45-0400 Body mass index (BMI) [Ratio] 29.8 kg/m2 [facility] Work Phone: Encounters Encounter Date Encounter Type Care Provider Facility Start: 09-11-[address] [facility] Chi Bill Facility:[facility] Start: 09-06-2025 ambulatory Ianliberty lakefortunato Szymanski cility:[facility] Start: 09-01-2025 ambulatory Channing Mckeon Facility:[facility] Start: 08-30-2025 ambulatory Ianliberty lakebe Bird BACON Fa cility:[facility] Start: 08-25-2025 ambulatory [facility] Facility:[facility] Start: 08-24-2025 End: 08-24-2025 Venecia MCCRAY -[facility] Work Phone: Start: 08-24-2025 End: 08-24-[address] Geoffrey Garza MD Work Phone: -[facility] Start: 08-23-2025 ambulatory Ianreynaldo Augustechristophemiranda OLS Fa cility:[facility] Start: 08-23-2025 Trixie Hodges - [place] Start: 08-16-2025 ambulatory Efnicolmanifortunato Castanedae OLS Fa cility:[facility] Start: 08-16-2025 Trixie Taylor Start: 08-11-2025 End: 08-11-[address] Geoffrey Garza MD Work Phone: -[facility] Services Start: 08-11-2025 End: 08-11-2025 Dr. Kenan Santamaria MD -[facility] Start: 08-11-2025 End: 08-11-2025 ambulatory Husam Chi Bill Facility:[facility] Start: 08-09-2025 ambulatory Ianreynaldo Augustechristophemiranda OLS Fa cility:[facility] Start: 08-09-2025 Trixie Rubi Carroll - [place] Start: 08-08-2025 Non-patient / Non-visit Dr. Pedro Banegas MD -[facility] Work Phone: Start: 08-08-2025 Dr. Pedro Banegas MD -[facility] Work Phone: Start: 08-07-2025 Non-patient / Non-visit Dr. Pedro Banegas MD -[facility] Work Phone: Start: 08-07-2025 [facility]: Start: 08-06-2025 Non-patient / [facility] Work Phone: Start: 08-06-2025 Dr. Pedro Elam [facility] Work Phone: Start: 08-05-2025 Non-patient / Non-visit Dr. Alannah Adams MD [facility] Work Phone: Start: 08-05-2025 Dr. Jim Adams MD -[facility] Work Phone: Start: 08-05-2025 ambulatory Husam Khan Facility:[facility] Start: 08-05-2025 End: 08-08-2025 Evaluation and management of inpatient Dr. Pedro Banegas MD -[facility] Work Phone: Start: 08-05-2025 End: 08-08-2025 Dr. Pedro Banegas MD -[facility] Work Phone: Start: 08-04-2025 ambulatory Morgan Dubon [facility] [place] ility:[facility] Start: 08-04-2025 Evaluation and management of inpatient Dr. Morgan Dubon DO Medical Surgical 3 Work Phone: Start: 08-04-2025 Non-patient / Non-visit Dr. Camarena [facility] Work Phone: Start: 08-04-[address] Leroy Garza MD Work Phone: -Medical Surgical 3 Start: 08-04-2025 Dr. Morgan Dubon [facility] Work Phone: Start: 08-04-2025 Emergency department patient visit Dr. Geoffrey Garza MD Work Phone: -Emergency Department Work Phone: Start: 08-02-2025 ambulatory Channing Mckeon Facility:[facility] Start: 08-02-2025 Non-patient / Non-visit Dr. Channing sanchez MD -[facility] Start: 08-02-2025 Dr. Channing Mckeon MD -[facility] Start: 08-02-2025 End: 08-02-2025 Admission to same day surgery center Dr. Channing Mckeon MD -Custom Designer/Special Procedures Work Phone: Start: 08-02-2025 End: 08-02-2025 Dr. Channing Mckeon MD -Custom Designer/Special Procedures Work Phone: Start: 08-02-2025 End: 08-02-[address] Geoffrey Garza MD Work Phone: -Custom Designer/Special Procedures Start: 08-01-2025 End: 08-01-[address] Channing Mckeon MD -[facility] Work Phone: Start: 08-01-2025 End: 08-01-2025 Dr. Channing Mckeon MD -[facility] Work Phone: Start: 08-01-2025 End: 08-01-[address] Geoffrey Garza MD Work Phone: -[facility] Start: 07-27-2025 End: 07-27-2025 Dr. Ilana Medrano DO -Emergency [facility] Work Phone: Start: 07-27-2025 End: 07-27-2025 Emergency department patient visit Dr. Geoffrey Garza MD Work Phone: -Emergency Department Work Phone: Start: 07-27-2025 Non-patient / Non-visit Dr. Channing sanchez MD -[facility] Start: 07-27-2025 End: 07-27-[address] Geoffrey Garza MD Work Phone: -Cardiovascular Services Start: 07-27-2025 End: 07-27-[address] Husam Khan MD -Cardiovascular Services Work Phone: Start: 07-27-2025 End: 07-27-2025 Dr. Channing Mckeon MD -[facility] Start: 07-26-2025 End: 07-27-[address] Geoffrey Garza MD Work Phone: -Laboratory Phy Office 3rd Flr Start: 07-26-2025 End: 07-26-[address] Husam Khan MD -Laboratory Phy Office 3rd Flr Start: 07-26-2025 End: 07-26-2025 Dr. Husam Khan MD -Laboratory Phy Offi ce 3rd Flr Start: 07-26-2025 End: 07-26-2025 ambulatory Husam Len Khan Facility:[facility] Start: 06-22-2025 End: 06-22-2025 Patient encounter procedure La Hernández PA -[facility] Work Phone: Start: 06-22-2025 End: 06-22-2025 La Hernández PA -[facility] Work Phone: Start: 06-22-2025 End: 06-22-[address] Geoffrey Garza MD Work Phone: -[facility] Start: 05-22-2025 End: 05-22-[address] Geoffrey Garza MD -[facility] Work Phone: Start: 05-22-2025 End: 05-22-2025 Dr. Geoffrey Garza MD -[facility] Work Phone: Start: 05-22-2025 End: 05-22-[address] Geoffrey Garza MD Work Phone: -[facility] Start: 05-04-[address] Andrea Garza MD -[facility] Start: 05-04-2025 Dr. Geoffrey malone MD -[facility] Start: 05-04-2025 ambulatory Husam Len Khan Facility:[facility] Start: 12-29-2024 End: 12-29-[address] Husam Khan MD -Laboratory Phy Office 3rd Flr Start: 12-29-2024 End: 12-29-2024 ambulatory Husam Len Khan Facility:[facility] Start: 09-02-2023 End: 09-02-[address] Husam Khan Work Phone: [facility] Work Phone: Start: 09-02-2023 End: 09-02-[address] Husam Khan Work Phone: [facility]-Laboratory Work Phone: Start: 07-13-2023 End: 07-13-2023 Patient encounter procedure MD Husam BACON [facility] Work Phone: Start: 07-07-2023 End: 07-07-2023 ambulatory MD Husam Khan [facility] Work Phone: Start: 07-07-2023 End: 07-07-2023 Patient encounter procedure MD Husam BACON [facility]-Laboratory Work Phone: Start: 06-25-2023 End: 06-25-2023 Patient encounter procedure MD Husam BACON [facility]-Laboratory, Phy Office 3rd Flr Start: 03-18-2023 End: 03-18-2023 Patient encounter procedure MD Husam BACON [facility] Work Phone: Start: 02-10-2023 End: 02-10-2023 ambulatory [facility] Work Phone: Start: 02-10-2023 End: 02-10-2023 Patient encounter procedure [facility]-Laboratory, Phy Office 3rd Flr Start: 12-25-2022 End: 12-25-2022 [facility] Start: 10-20-2022 End: 10-20-2022 ambulatory MD Weiner [facility] Work Phone: Start: 10-20-2022 End: 10-20-2022 Patient encounter procedure MD Weiner [facility]-Pulmonary Services/Neurology Start: 10-02-2022 Non-patient / Non-visit MD Weiner [facility] Start: 10-02-2022 End: 10-02-2022 ambulatory MD Husam Harrington [facility] Work Phone: Start: 10-02-2022 End: 10-02-2022 Patient encounter procedure [facility]-Cardiovascular Services Start: 09-23-2022 End: 09-23-2022 Patient encounter procedure MD Husam Khan [facility] Start: 08-12-2022 End: 08-12-2022 ambulatory [facility] Work Phone: Start: 08-12-2022 End: 08-12-2022 Patient encounter procedure [facility]-Laboratory Start: 07-14-2022 End: 07-14-2022 Patient encounter procedure [facility] Start: 07-08-2022 End: 07-08-2022 ambulatory MD Weiner [facility] Work Phone: Start: 07-08-2022 End: 07-08-2022 Patient encounter procedure [facility]-Laboratory Start: 06-19-2022 End: 06-19-2022 Patient encounter procedure [facility]-Laboratory, Phy Office 3rd Flr Start: 03-04-2022 End: 03-04-2022 Patient encounter procedure [facility]-Laboratory, Phy Office 3rd Flr Start: 01-14-2022 End: 01-14-2022 Patient encounter procedure [facility] Start: 01-13-2022 End: 01-13-2022 Patient encounter procedure [facility] Start: 01-08-2022 Registered Recurring [facility] Oncology Start: 11-11-2021 Patient encounter procedure [facility]-Laboratory Start: 12-04-2018 Evaluation and management of inpatient [facility] Procedures Date Procedure Procedure Detail Performing [...] Geoffrey Garza MD Work Phone: Start: 05-04-2025 Mean corpuscular [...] hematuria). per Dr. Wayne Rivers 07/04/19 @ [facility] Start: 06-23-2019 History of coronary artery bypass grafting History of coronary artery bypass surgery La MCCRAY Comment on above: CABG X2 with HARRINGTON to LAD, reverse SVG to ramus intermedius, and exclusion of left atrial appendage with 35 mm Atricure clip (pt poor anticoag candidate d/t hematuria). per Dr. Wayne Rivers 07/04/19 @ [facility] Start: 12-09-2018 Microscopic examinat ion of blood, culture VALDEZ LANDIS Comment on above: Order Comment: Speci men Source Comment:Blood Performed By: #### H EMDF, NH33, PT, CMP3, LIPA4, CK3, TROPN, LACT3, MDIFF, PCAL #### [address] [address] Influenza Types A,B Direct FA (RYLAN) MD Husam Khan Influenza Types A,B Direct FA (RYLAN) Respiratory syncytia l virus antigen assay MD Husam Khan Respiratory syncytia l virus antigen assay Urine culture Plan of Treatment Date Care Activity Detail Author Start: 08-24-2025 Ankle brachial pressure index [facility] Start: 08-24-2025 Administration of bl ood product [facility] Start: 08-24-2025 [facility] Start: 08-08-2025 Patient discharge [facility] Start: 08-08-2025 Inhalation therapy procedure [facility] Start: 08-06-2025 Bacteria identified in Blood by Culture Blood Culture [facility] Start: 08-06-2025 Blood culture Blood Culture [facility] Start: 08-06-2025 [facility] Start: 08-06-2025 Application of ice c ollar, cap or bag [facility] Start: 08-05-2025 Following clinical p athway protocol [facility] Start: 08-05-2025 Admission procedure [facility] Start: 08-04-2025 Ambulation without limitation [facility] Start: 08-04-2025 Assessment of risk o f venous thromboembolism [facility] Start: 08-04-2025 Insertion of cathete r into peripheral vein [facility] Start: 08-04-2025 Measuring intake and output [facility] Start: 08-04-2025 Providing care accor ding to standard [facility] Start: 08-04-2025 Referral for physical therapy [facility] Start: 08-04-2025 Referral to occupati onal therapist [facility] Start: 08-04-2025 Referral to service [facility] Start: 08-04-2025 [facility] Start: 08-04-2025 Following clinical p athway protocol [facility] Start: 08-04-2025 Verification routine [facility] Start: 08-04-2025 Admission procedure [facility] Start: 08-04-2025 Hospital admission, emergency, from emergency room, medical nature [facility] Start: 08-04-2025 [facility] Start: 08-02-2025 Introduction catheter aorta [facility] Start: 08-02-2025 Patient discharge [facility] Start: 07-27-2025 [facility] Start: 02-10-2023 Procedure [facility] Bilirubin measurement, urine [facility] Hemoglobin [Presence] in Urine [facility] Measurement of keton es in urine using dipstick [facility] Microscopic urinalysis [facility] Microscopic urinalysis [facility] Organism count, micr oscopic method [facility] Patient Education [facility] Work Phone: pH of Urine [facility] Procedure [facility] Specific gravity of Urine [facility] Urine blood test [facility] Urine dipstick for glucose [facility] Urine dipstick for l eukocyte esterase [facility] Urine dipstick for nitrite [facility] Urine dipstick for protein [facility] Urine examination [facility] Urine microscopy: ep ithelial cells [facility] Urine microscopy: ep ithelial cells [facility] Urine microscopy: red cells [facility] Urine Microscopy: white cells [facility] Urobilinogen [Presen ce] in Urine [facility] US Heart [facility] US Lower extremity artery [facility] White blood cell count [facility] Immunizations Immunization Date Immunization Notes Care Provider Fa cility 01-16-2021 Covid (Pfizer) MD Weiner [facility] 12-27-2020 Covid (Pfizer) MD Weiner [facility] Payers Date Payer Category Payer Medicare [id number] 2021 Private Health Insurance [id number] 2021 Self-pay [id number] 1940 Unknown [id number] 01.08. [id number] Medicare Private Health Insurance Unknown [id number] 40.1.503427.3.579.2.462 Unknown [id number] .16.8 40.1.620564.3.579.2.462 Unknown [id number] .16.8 40.1.042701.3.579.2.462 Unknown [id number] ..[id number] 40.1.820529.3.579.2.462 Unknown [id number] ..[id number] 40.1.818338.3.579.2.462 Unknown [id number] 2.16.8 40.1.457660.3.579.2.462 Unknown [id number] 2.16.8 40.1.488228.3.579.2.462 Unknown [id number] 2.16.8 40.1.804817.3.579.2.462 Unknown [id number] 2.16.8 40.1.266395.3.579.2.462 Unknown [id number] 2.16.8 40.1.690101.3.579.2.462 Unknown [id number] 2.16.8 40.1.624712.3.579.2.462 Unknown [id number] 2.16.8 40.1.223325.3.579.2.462 Unknown [id number] 2.16.8 40.1.857211.3.579.2.462 Unknown [id number] 2.16.8 40.1.112076.3.579.2.462 Unknown [id number] 2.16.8 40.1.654102.3.579.2.462 Unknown [id number] 2.16.8 40.1.053794.3.579.2.462 Unknown [id number] 2.16.8 40.1.225914.3.579.2.462 Unknown [id number] 2.16.8 40.1.268505.3.579.2.462 Unknown [id number] 2.16.8 40.1.090638.3.579.2.462 Unknown [id number] 2.16.8 40.1.565866.3.579.2.462 Unknown [id number] 2.16.8 40.1.440727.3.579.2.462 Unknown [id number] 2.16.8 40.1.309893.3.579.2.462 Unknown [id number] 2.16.8 40.1.415950.3.579.2.462 Unknown [id number] 2.16.8 40.1.617062.3.579.2.462 Unknown [id number] 2.16.8 40.1.538295.3.579.2.462 Unknown [id number] 2.16.8 40.1.912624.3.579.2.462 Unknown [id number] 2.16.8 40.1.187139.3.579.2.462 Unknown [id number] 2.16.8 40.1.146936.3.579.2.462 Unknown [id number] 2.16.8 40.1.743682.3.579.2.462 Unknown [id number] 2.16.8 40.1.376389.3.579.2.462 Social History Date Type Detail Facility Start: 01-14-2022 End: 03-18-2023 Tobacco smoking status NHIS Unknown if ever smoked [facility] Start: 07-13-2019 Occasional [facility] Start: 07-13-2019 None [facility] Start: 07-14-2019 With Family [facility] Start: 07-13-2019 Non-smoker [facility] Start: 1940 Sex Assigned At Male [facility] Start: 03-18-2023 End: 08-04-2025 Tobacco smoking status NHIS Ex-smoker (finding) [facility] Sex [facility] Medical Equipment Procedure Code Equipment Code Equipment Origin al Text Equipment Identifier Dates [id number] FDA Start: 08-02-2025 ([id number] FDA Start: 08-02-2025 Goals Date Patient Goal Desired Activity /State Functional Status Date Assessment Result Facility 08-08-2025 Functional status Chair;Bedpan [facility] Work Phone: 08-07-2025 Functional status Ambulates [facility] Work Phone: Mental Status Date Assessment Result Facility 08-24-2025 Cognitive function Voice/Name [facility] Work Phone: 08-08-2025 Cognitive function Voice/Name [facility] Work Phone: 08-07-2025 Cognitive function Voice/Name [facility] Work Phone: 08-04-2025 Cognitive function Level Of Cons ciousness Awake;Alert [facility] Work Phone: Clinical Notes 06-23-2019 to 08-08-2025 Note Date & Type Note Facility 08-08-2025 Discharge summary Note Date/Time August 08, 2025 12:44pm [facility] Medical Records Department [address] [place] [address] Discharge Summary 08/08/25 1239 MR#: [id number] Acct: [id number] Name: ELIAS SHAH Rep #:[id number] : 1940 85 From: Pedro Soliman PCP: Dr. Husam Khan MD Status:ADM I N Location: [place] [address] Providers Date of Admission: 08/05/25 Date of [...] 78.4 H, Lymph % (Auto) 8.0 L, Lanier % (Auto) 10.9 H, Eos % (Auto) [...] mg-vit E 90 mg-zinc 40 mg-copper 1 ct-yvjrzx-ixxolg capsule (PreserVision AREDS-2) 1 tab PO BID [...] % (Auto) 63.2, Lymph % (Auto)17.1 L, Lanier % (Auto) 15.9 H, Eos % (Auto) [...] in before D/C Order can be placed): [facility] Facility Charges/Coding Visit Charges Inpatient E&M: 76395 Disch Hosp >30min 08/08/25 1244 <Electronically signed by Pedro Banegas MD> Cosigner Signature (if applicable): CC: Dr. Channing Mckeon MD; Dr. Pedro Banegas MD; Dr. Husam Khan MD~ Signed [facility] Work Phone: 1(207) 596-303609-16-2025 Discharge summary Author Pedro Banegas [facility] Note Date/Time August 08, 2025 12:39pm [facility] Medical Records Department [address] [place], [place] [address] [place] [address] [facility] MR#: [id number] Acct: [id number] Name: ELIAS SHAH Rep #:[id number] : 1940 85 From: Pedro Soliman PCP: Dr. Husam Khan MD Status:ADM I N Certification of patient admission REQUIRED AT TIME OF ADMISSION. I CERTIFY THAT POST-HOSPITAL ECF SERVICES ARE REQUIRED TO BE GIVEN ON AN IN-PATIENT BASIS BECAUSE OF THE ABOVE NAMED PATIENT'S NEED FOR CUSTODIAL CARE ON A CONTINUING BASIS FOR THE [...] 78.4 H, Lymph % (Auto) 8.0 L, Lanier % (Auto) 10.9 H, Eos % (Auto) [...] in before D/C Order can be placed): [facility] Facility 08/08/25 1239 <Electronically signed by Pedro Banegas MD> Cosigner Signature (if applicable): CC: Dr. Morgan Dubon DO; Dr. Jim Adams MD; Dr. Husam Khan MD ~ [facility] Work Phone: 1(694) 103-491509-16-2025 Hospital Discharge instructionsAdditional Instructions Date of Discharge: 08/08/25[facility] Work Phone: 1(425) 283-214409-16-2025 Discharge summary [facility] Medical Records Department [address] [place] [address] Discharge Summary 08/08/25 1239 MR#: [id number] Acct: [id number] Name: ELIAS SHAH Rep #:[id number] : 1940 85 From: Pedro Soliman PCP: Dr. Husam Khan MD Status:ADM I N [id number] Providers Date of Admission: 08/05/25 Date of [...] 78.4 H, Lymph % (Auto) 8.0 L, Lanier % (Auto) 10.9 H, Eos % (Auto) [...] mg-vit E 90 mg-zinc 40 mg-copper 1 pf-ewqdfu-bbpcve capsule (PreserVision AREDS-2) 1 tab PO BID [...] % (Auto) 63.2, Lymph % (Auto)17.1 L, Lanier % (Auto) 15.9 H, Eos % (Auto) [...] in before D/C Order can be placed): [facility] Facility Charges/Coding Visit Charges Inpatient E&M: 66686 Disch Hosp >30min 08/08/25 1244 Cosigner Signature (if applicable): CC: Dr. Channing Mckeon MD; Dr. Pedro Banegas MD; Dr. Husam Khan MD~ Signed [facility]09-16-2025 Discharge summary [facility] Medical Records Department [address] [place] [address] Transfer to [facility] MR#: [id number] Acct: [id number] Name: ELIAS SHAH Rep #:[id number] : 1940 85 From: Pedro Soliman PCP: Dr. Husam Khan MD Status:ADM I N Certification of patient admission REQUIRED AT TIME OF ADMISSION. I CERTIFY THAT POST-HOSPITAL ECF SERVICES ARE REQUIRED TO BE GIVEN ON AN IN-PATIENT BASIS BECAUSE OF THE ABOVE NAMED PATIENT'S NEED FOR CUSTODIAL CARE ON A CONTINUING BASIS FOR THE CONDITION(S) FOR WHICH HE/SHE WAS RECEIVING IN-PATIENT HOSPITAL SERVICES PRIOR TO HIS/HER TRANSFER TO [facility]. 08/08/25 1239 Diet Diet Order/Speech Therapy: INPATIENT [...] 78.4 H, Lymph % (Auto) 8.0 L, Lanier % (Auto) 10.9 H, Eos % (Auto) [...] in before D/C Order can be placed): [facility] Facility 08/08/25 1239 Cosigner Signature (if applicable): CC: Dr. Morgan Dubon DO; Dr. Jim Adams MD; Dr. Husam Khan MD ~ [facility]09-16-2025 [facility] Medical Records Department [address] [place] [address] Discharge Summary 08/08/25 1239 MR#: [id number] Acct: [id number] Name: ELIAS SHAH Rep #: [id number] : 1940 85 From: Pedro Banegas MD PCP: Dr. Husam Khan MD Status:ADM IN [facility] Providers Date of Admission: 08/05/25 Date of [...] 78.4 H, Lymph % (Auto) 8.0 L, Lanier % (Auto) 10.9 H, Eos % (Auto) [...] 1,000 mcg PO DAILY (more content not included)...[facility]09-15-2025 Progress note Author Pedro Banegas [facility] Note Date/Time August 07, 2025 2:01pm [facility] Medical Records Department [address] [place] [address] Progress Note - Hospitalist 08/07/25 1358 MR#: [id number] Acct: [id number] Name: ELIAS SHAH Rep #:[id number] : 1940 85 From: Pedro Soliman PCP: Dr. Husam Khan MD Status:ADM I N Location: [place] [address] Reason for Visit Chief Complaint: Weakness and [...] 78.4 H, Lymph % (Auto) 8.0 L, Lanier % (Auto) 10.9 H, Eos % (Auto) [...] Calcium 8.0 Charges/Coding Visit Charges Inpatient E&M: 89843 Subs Hosp L2 08/07/25 1401 <Electronically signed by Pedro Banegas MD> Cosigner Signature (if applicable): CC: ~ Signed [facility] Work Phone: 1(315) 347-632509-15-2025 Progress note [facility] Medical Records Department [address] [place] [address] Progress Note - Hospitalist 08/07/25 1358 MR#: [id number] Acct: [id number] Name: ELIAS SHAH Rep #:[id number] : 1940 85 From: Pedro Soliman PCP: Dr. Husam Khan MD Status:ADM I N Location: [place] [address] Reason for Visit Chief Complaint: Weakness and [...] 78.4 H, Lymph % (Auto) 8.0 L, Lanier % (Auto) 10.9 H, Eos % (Auto) [...] Calcium 8.0 Charges/Coding Visit Charges Inpatient E&M: 78616 Subs Hosp L2 08/07/25 1401 Cosigner Signature (if applicable): CC: ~ Signed [facility]09-14-2025 Progress note Author Pedro Banegas [facility] Note Date/Time August 06, 2025 11:39am [facility] Medical Records Department [address] [place] [address] Progress Note - Hospitalist 08/06/25 0739 MR#: [id number] Acct: [id number] Name: ELIAS SHAH Rep #:[id number] : 1940 85 From: Pedro Soliman PCP: Dr. Husam Khan MD Status:ADM I N Location: [place] [address] Reason for Visit Chief Complaint: Weakness and [...] 78.4 H, Lymph % (Auto) 8.0 L, Lanier % (Auto) 10.9 H, Eos % (Auto) [...] 78.4 H, Lymph % (Auto) 8.0 L, Lanier % (Auto) 10.9 H, Eos % (Auto) [...] Calcium 8.0 Charges/Coding Visit Charges Inpatient E&M: 60505 Subs Hosp L2 08/06/25 1139 <Electronically signed by Pedro Banegas MD> Cosigner Signature (if applicable): CC: ~ Signed [facility] Work Phone: 1(592) 481-541209-14-2025 Progress note [facility] Medical Records Department [address] [place] [address] Progress Note - Hospitalist 08/06/25 0739 MR#: [id number] Acct: [id number] Name: ELIAS SHAH Rep #:[id number] : 1940 85 From: Pedro Soliman PCP: Dr. Husam Khan MD Status:ADM I N Location: [place] [address] Reason for Visit Chief Complaint: Weakness and [...] 78.4 H, Lymph % (Auto) 8.0 L, Lanier % (Auto) 10.9 H, Eos % (Auto) [...] 78.4 H, Lymph % (Auto) 8.0 L, Lanier % (Auto) 10.9 H, Eos % (Auto) [...] Calcium 8.0 Charges/Coding Visit Charges Inpatient E&M: 09190 Subs Hosp L2 08/06/25 1139 Cosigner Signature (if applicable): CC: ~ Signed [facility]09-13-2025 Progress note Author Jim Adams [facility] Note Date/Time August 05, 2025 3:37pm [facility] Medical Records Department [address] [place] [id number] Progress Note - Hospitalist 08/05/25 1505 MR#: [id number] Acct: [id number] Name: ELIAS SHAH Rep #:[id number] : 1940 85 From: Jim arzate MD PCP: Dr. Husam Khan MD Status:ADM I N Location: TN3 BM380-3 Subjective Subjective Still significant pain behind his [...] Sl. Cloudy, Urine pH 5.0, Ur Specific [place] 1.020, Urine Protein 30 H, Urine Glucose [...] DVT: Lovenox Charges/Coding Visit Charges Inpatient E&M: 45626 Subs Hosp L2 08/05/25 3345 <Electronically signed by Jim Adams MD> Cosigner Signature (if applicable): CC: ~ Signed [facility] Work Phone: 1(918) 355-958209-13-2025 Progress note [facility] Medical Records Department [address] [place] [address] Progress Note - Hospitalist 08/05/25 1505 MR#: [id number] Acct: [id number] Name: ELIAS SHAH Rep #:[id number] : 1940 85 From: Jim arzate MD PCP: Dr. Husam Khan MD Status:ADM I N Location: TN3 AR827-3 Subjective Subjective Still significant pain behind his [...] Sl. Cloudy, Urine pH 5.0, Ur Specific [place] 1.020, Urine Protein 30 H, Urine Glucose [...] DVT: Lovenox Charges/Coding Visit Charges Inpatient E&M: 07142 Subs Hosp L2 08/05/25 6147 Cosigner Signature (if applicable): CC: ~ Signed [facility]09-12-2025 History and physical note Author Morgan Dubon [facility] Note Date/Time August 04, 2025 5:22pm [facility] Medical Records Department [address] [place] [address] H&P Exam - Hospitalist 08/04/25 1608 MR#: [id number] Acct: [id number] Name: ELIAS SHAH Rep #:[id number] 6 : 1940 85 From: Morgan Hansen jose luis DO PCP: Dr. Husam Khan MD Status:ADM I NO [facility] HPI - General General Date of Admission: 08/04/25 Date of Service: 08/04/25 Chief Complaint: Weakness and difficulty with ambulation HPI Narrative ELIAS SHAH, is a 85 M who presented to [facility] ED on 08/04/2025 with weakness and difficulty [...] currently. Will be admitted for further management. [facility] Medical History Macular degeneration Iron deficiency [...] PO BID 06/22/25 Unknown History mg-copper 1 aj-frrchj-pbzdba capsule (PreserVision AREDS-2) rosuvastatin 20 mg tablet [...] beverages and coffee eating out: 1-3 times/week adná/caodaism: Cheondoism seatbelt use: always do you feel safe [...] 78.2 H, Lymph % (Auto) 6.6 L, [place] % (Auto) 12.6 H, Eos % (Auto) [...] No Acute Findings. Stable examination. Reading Location: [id number] Assessment & Plan Assessment/Plan (1) Debility: (2) MAURO (acute kidney injury): (3) Leg pain, right: PLAN: Plan Patient is an 85-year-old male who presented [facility] ED on 08/04/2025 for weakness and difficulty with ambulation. 1. Acute on chronic debility and difficulty with ambulation ? Admit under observation status to [facility]. PT/OT/case management consulted. Lives at home with but has required SNF placement in the past. Worsening weakness and difficulty with ambulation now is likely due to his recent procedure as below and dehydration from poor p.o. intake postoperatively. is requesting SNF placement on discharge and patient is agreeable with this. Has been [place] in the past and had a good [...] AVR, paroxysmal A-fib, hypertension, hyperlipidemia: Follows with [facility]. In rate controlled A-fib in the [...] 79 minutes. Charges/Coding Visit Charges Inpatient E&M: 04802 Init Hosp L3 08/04/25 1722 <Electronically signed by Morgan Dubon DO> Cosigner Signature (if applicable): CC: Dr. Morgan Dubon DO; Dr. Husam Khan MD~ Signed [facility] Work Phone: 1(363) 388-163109-12-2025 Discharge summary Author Ted Mtz [facility] Note Date/Time August 04, 2025 4:13pm [facility] Medical Records Department [address] [place] [address] Emergency Department Summary 08/04/25 MR#: [id number] Acct: [id number] Name: ELIAS SHAH Farshad Rep #:[id number] 3 : 1940 85 From: Ted Mtz [...] been looking to getting him into a custodial facility recently, but his acute worsening since his surgery have limited their ability to do that quickly as an outpatient. He has had several near falls and has been very weak. [facility] Medical History Macular degeneration Iron deficiency anemia [...] PO BID 06/22/25 Unknown History mg-copper 1 mk-vhudeh-xyebfi capsule (PreserVision AREDS-2) rosuvastatin 20 mg tablet [...] beverages and coffee eating out: 1-3 times/week adán/caodaism: Cheondoism seatbelt use: always do you feel safe [...] 78.2 H Lymph % (Auto) 6.6 L [place] % (Auto) 12.6 H Eos % (Auto) [...] No Acute Findings. Stable examination. Reading Location: [id number] Rhythm Strip Rhythm Strip: A-fib Rate: 95 Ectopy: None EKG Initial EKG: Attestation: I personally reviewed and interpreted this EKG as follows: Interpretation: No Acute Injury Pattern, Atrial Fibrillation and LBBB Prior EKG tracings: available for review Prior: Unchanged Management Discussion w/another healthcare provider: Hospitalist and Casino Duty Manager (Vascular) Discharge Plan Dx/Rx/DC Orders Clinical Impression: MAURO (acute kidney injury), Paroxysmal atrial fibrillation, Debility, Leg pain, right Disposition Disposition: Acute Care [facility] What to do if you have Problems For any increased pain, shortness of breath, bleeding, nausea or vomiting, chestpain, or any unexpected problems, contact your Primary Care Provider. Call [facility] ([phone]) or report to the closest Emergency Room. Call 911 if necessary. 08/04/25 6905 <Electronically signed by Ted Mtz MD> Cosigner Signature (if applicable): CC: Dr. Husam Khan MD ~ Signed [facility] Work Phone: 1(174) 565-201309-12-2025 History and physical note [facility] Medical Records Department [address] [place] [address] H&P Exam - Hospitalist 08/04/25 1608 MR#: [id number] Acct: [id number] Name: ELIAS SHAH Rep #:[id number] 6 : 1940 85 From: Morgan aguilar DO PCP: Dr. Husam Khan MD Status:ADM I NO Location: TN3 VV401-8 HPI - General General Date of Admission: 08/04/25 Date of Service: 08/04/25 Chief Complaint: Weakness and difficulty with ambulation HPI Narrative ELIAS SHAH, is a 85 M who presented to [facility] ED on 08/04/2025 with weakness and difficulty [...] he was mildly hypotensive to the 100s [id number] and borderline tachycardic to the 90s but [...] currently. Will be admitted for further management. [facility] Medical History Macular degeneration Iron deficiency [...] PO BID 06/22/25 Unknown History mg-copper 1 ox-kyfaff-jyyuqb capsule (PreserVision AREDS-2) rosuvastatin 20 mg tablet [...] beverages and coffee eating out: 1-3 times/week adán/caodaism: Cheondoism seatbelt use: always do you feel safe [...] 78.2 H, Lymph % (Auto) 6.6 L, [place] % (Auto) 12.6 H, Eos % (Auto) [...] No Acute Findings. Stable examination. Reading Location: [id number] Assessment & Plan Assessment/Plan (1) Debility: (2) MAURO (acute kidney injury): (3) Leg pain, right: PLAN: Plan Patient is an 85-year-old male who presented [facility] ED on 08/04/2025 for weakness and difficulty with ambulation. 1. Acute on chronic debility and difficulty with ambulation ? Admit under observation status to [facility]. PT/OT/case management consulted. Lives at home with but has required SNF placement in the past. Worsening weakness and difficulty with ambulation nowis likely due to his recent procedure as below and dehydration from poor p.o. intake postoperatively. is requesting SNF placement on discharge and patient is agreeable with this. Has been [place] in the past and had a good [...] AVR, paroxysmal A-fib, hypertension, hyperlipidemia: Follows with [place] [facility]. In rate controlled A-fib in the [...] 79 minutes. Charges/Coding Visit Charges Inpatient E&M: 36801 Init Hosp L3 08/04/25 1722 Cosigner Signature (if applicable): CC: Dr. Morgan Dubon DO; Dr. Husam Khan MD~ Signed [facility]09-12-2025 Discharge summary [facility] Medical Records Department [address] [place] [address] Emergency Department Summary 08/04/25 MR#: [id number] Acct: [id number] Name: ELIAS SHAH Rep #:[id number] 3 : 1940 85 From: Ted Mtz [...] been looking to getting him into a custodial facility recently, but his acute worsening since his surgery have limited their ability to do that quickly as an outpatient. He has had several near falls and has been very weak. [facility] Medical History Macular degeneration Iron deficiency anemia [...] PO BID 06/22/25 Unknown History mg-copper 1 yi-ghopmt-jzvdrg capsule (PreserVision AREDS-2) rosuvastatin 20 mg tablet [...] beverages and coffee eating out: 1-3 times/week adán/caodaism: Cheondoism seatbelt use: always do you feel safe [...] 78.2 H Lymph % (Auto) 6.6 L [place] % (Auto) 12.6 H Eos % (Auto) [...] No Acute Findings. Stable examination. Reading Location: [id number] Rhythm Strip Rhythm Strip: A-fib Rate: 95 Ectopy: None EKG Initial EKG: Attestation: I personally reviewed and interpreted this EKG as follows: Interpretation: No Acute Injury Pattern, Atrial Fibrillation and LBBB Prior EKG tracings: available for review Prior: Unchanged Management Discussion w/another healthcare provider: Hospitalist and Casino Duty Manager (Vascular) Discharge Plan Dx/Rx/DC Orders Clinical Impression: MAURO (acute kidney injury), Paroxysmal atrial fibrillation, Debility, Leg pain, right Disposition Disposition: [facility] What to do if you have Problems For any increased pain, shortness of breath, bleeding, nausea or vomiting, chestpain, or any unexpected problems, contact your Primary Care Provider. Call [facility] ([phone]) or report tothe closest Emergency Room. Call 911 if necessary. 08/04/25 1613 Cosigner Signature (if applicable): CC: Dr. Husam Khan MD ~ Signed [facility]09-12-2025 Radiology Diagnostic study note [facility] Imaging Services [address] [place], [place] [address] Chest 1 View (Portable) MR#: [id number] Acct: [id number] Name: ELIAS SHAH Rep #: [id number] : 1940 85 From: Elliott Vargas MD PCP: Dr. Husam Khan MD Status: REG E R Study:Chest 1 View (Portable) Date of Exam: 08/04/25 Exam# [id number] Ordering Dr: Bishop Mtz MD PROCEDURE: CHEST [...] No Acute Findings. Stable examination. Reading Location: [id number] CC: Dr. Ted Mtz MD; Dr. Husam Khan MD ~ Mobile Home Set Up Person: Signed [facility]09-04-2025 Radiology Diagnostic study note [facility] Imaging Services [address], [place] [id number] CTA Abd w/Runoff W/WO Contrast MR#: [id number] Acct: [id number] Name: ELIAS SHAH Rep #: [id number] 2 : 1940 M 85 From: Kj Curtis MD PCP: Dr. Husam Khan MD Status: REG E R Study:CTA Abd w/Runoff W/WO Contrast Date of Exam: 07/27/25 Exam# [id number] Ordering Dr: Neymar Medrano DO PROCEDURE: CTA [...] mentioned in the clinical history. Reading Location: [id number] CC: Dr. Ilana Medrano DO; Dr. Husam Khan MD ~ Mobile Home Set Up Person: Signed [facility]09-02-2025 Hospital Discharge instructionsAdditional Instructions Continue taking your [...] not want to make this unstable or worsen.[facility] Work Phone: 1(796) 986-616306-30-2025 Evaluation note* Diagnosis Onset Date Resolution Status [...] surgery June, resolved June 22, 2025 9:53am [facility] Work Phone: 1([phone]) 150-999606-30-2025 Evaluation note* Diagnosis Onset Date Resolution Status [...] 9:53am Pseudoaneurysm acute August 01, 2025 2:41pm [facility] Work Phone: [phone]) 678-563406-30-2025 Evaluation note* Diagnosis Onset Date Resolution Status [...] 9:53am Pseudoaneurysm inactive August 01, 2025 2:41pm [facility] Work Phone: 1(771) 172-601506-30-2025 Evaluation note* Diagnosis Onset Date Resolution Status [...] pain, right acute August 05, 2025 12:13pm [facility] Work Phone: 1([phone]) 393-438206-30-2025 Evaluation note* Diagnosis Onset Date Resolution Status [...] pain, right inactive August 05, 2025 12:13pm [facility] Work Phone: 1([phone]) 922-611206-30-2025 Evaluation note* Diagnosis Onset Date Resolution Status [...] August 24 8:37am Pseudoaneurysm inactive August 8:37am [facility] Work Phone: [phone]) [phone] Evaluation note* Diagnosis Onset Date Resolution Status 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 June, acute Coronary artery disease wrapper stemmer hand alana Essential (primary) hypertension chronic GERD with esophagitis chroni c Hyperlipidemia chronic History of coronary artery bypass surgery June, resolved Iron deficiency anemia due to chronic blood loss 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) [facility] Work Phone: Evaluation note* Diagnosis Onset Date Resolution Status Iron deficiency anemia due to chronic blood loss 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 Atherosclerosis of coronary artery without angina pectoris chronic Essential (primary) hypertension chronic Hyperlipidemia chronic Paroxysmal atrial fibrillation chronic S/P aortic valve replacement with bioprosthetic valve July 04, 2019 chronic [facility] Work Phone: Evaluation noteNo assessment information available [facility] Work Phone: Evaluation note* Diagnosis Onset Date Resolution Status Iron deficiency anemia due to chronic blood loss 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) [facility] Work Phone: Evaluation note* Diagnosis Onset Date Resolution Status Admit Date Iron deficiency anemia due t o chronic blood loss chronic May 22 10:17am 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 May 22, 2025 10:17am [facility] Work Phone: Reason for referral (narrative)No reason for referral information availableC[facility] Work Phone: Summary Purpose Family History No [...] Yes August 20, 2019 7:58am Power of Aluminum Polisher Yes July 7:58am Advance Directive Response Recorded Date/ Time Advance Directives No March 02 8:11am Living Will Yes August 20, 2019 6:58am Power of Aluminum Polisher Yes July 6:58am Advance Directive Response Recorded Date/ Time Advance Directives No March 02 9:11am Advance Directive Response Recorded Date/ Time Living Will Yes August 20, 2019 7:58am Do you have a Healthcare Power of Aluminum Polisher? Yes August 20, 2019 7:58am Advance Directives No March 02 9:11am Advance Directive Response Recorded Date/ Time Living Will Yes August 20, 2019 7:58am Do you have a Healthcare Power of Aluminum Polisher? Yes August 20, 2019 7:58am Do you have a Healthcare Power of Aluminum Polisher? Yes July 27, 2025 3:40pm Advance Directives No March 02 9:11am Advance Directive Response Recorded Date/ Time Living Will Yes August 20, 2019 7:58am Do you have a Healthcare Power of Aluminum Polisher? Yes August 20, 2019 7:58am Do you have a Healthcare Power of Aluminum Polisher? Yes July 27, 2025 3:40pm Advance Directives Yes July 8:30am Advance Directive Response Recorded Date/ Time Living Will Yes August 20, 2019 7:58am Do you have a Healthcare Power of Aluminum Polisher? Yes August 20, 2019 7:58am Do you have a Healthcare Power of Aluminum Polisher? Yes July 27, 2025 3:40pm Advance Directives on File No Sept mb2024 7:05am Living Will Yes August 02, 2025 7:05am Do you have a Healthcare Power of Aluminum Polisher? Yes August 02, 2025 7:05am Name of Medical Power of Aluminum Polisher amalia zamora August 02, 2025 7:05am Advance Directives Yes July 7:05am Advance Directive Response Recorded Date/ Time Living Will Yes August 20, 2019 7:58am Do you have a Healthcare Power of Aluminum Polisher? Yes August 20, 2019 7:58am Do you have a Healthcare Power of Aluminum Polisher? No August 04, 2025 11:48am Do you have a Healthcare Power of Aluminum Polisher? Yes July 27, 2025 3:40pm Advance Directives on File No Jean cristine 2024 7:05am Living Will Yes August 02, 2025 7:05am Do you have a Healthcare Power of Aluminum Polisher? Yes August 02, 2025 7:05am Name of Medical Power of Aluminum Polisher amalia sera August 02, 2025 7:05am Advance Directives Yes July 7:05am Advance Directive Response Recorded Date/ Time Living Will Yes August 20, 2019 7:58am Do you have a Healthcare Power of Aluminum Polisher? Yes August 20, 2019 7:58am Do you have a Healthcare Power of Aluminum Polisher? No August 04, 2025 5:54pm Do you have a Healthcare Power of Aluminum Polisher? Yes July 27, 2025 3:40pm Advance Directives on File No Jean colunga 2024 7:05am Living Will Yes August 02, 2025 7:05am Do you have a Healthcare Power of Aluminum Polisher? Yes August 02, 2025 7:05am Name of Medical Power of Aluminum Polisher amalia sera August 02, 2025 7:05am Advance [...] a 78 y.o. male who presented to [facility] on 12/04/2018 with an incarcerated, strangulated hernia. He went to the OR urgently for diagnostic lap, which converted to open exploratory laparotomy when the bowel was noted to be nonviable. The diseased segment was resected and the bowel reanastomosed. Post-operatively he was transferred t (more content not included)... Note HNO ID: [id number] Author: Jerel Millan ([place]) Service: Cardiovascular Surgery Author Type: Physician Post Anesthesia Care Unit Nurse Type: Discharge Summary Filed: 07/13/2019 4:08 PM Note Text: Attestation signed by Wayen Rivers at 07/14/2019 2:40 PM Attending Note [...] (more content not included)... Note HNO ID: [id number] Author: Leah Peñaloza Service: Hospital Medicine Author [...] (more content not included)... Note HNO ID: [id number] Author: Jerel Millan ([place]) Service: Cardiovascular Surgery Author Type: Physician Post Anesthesia Care Unit Nurse Type: Procedures Filed: 07/11/2019 3:42 PM Note [...] PAGER/CONTACT #: Procedure Findings Note HNO ID: [id number] Author: Jerel Millan ([place]) Service: Cardiovascular Surgery Author Type: Physician Post Anesthesia Care Unit Nurse Type: Procedures Filed: 07/11/2019 3:42 PM Note [...] section and content) DATE CREATED AUTHOR 01/11/2019 [facility] DATE CREATED AUTHOR AUTHOR'S ORGANIZ ATION 09/19/2019 [facility] DATE CREATED AUTHOR AUTHOR'S ORGANIZ ATION 09/17/2025 [facility] Goals (unrecognized section and content) [...] August 02, 2025 Dr. Channing Mckeon MD Nurse Practitioner Active S tart: August [...] MD Attending physician Active Start: July Dr. Jim Adams MD Nurse Practitioner Active [...] BE BASED ON THE PRIMARY CLINICAL RECORDS. [facility] [employer] [facility]. provides no warranty or guarantee of the accuracy or completeness of information in this document.
[2025-09-18 09:08] LABS: Hematocrit 25.8 % (40-54); Hemoglobin 8.4 g/dL (13.0-16.5); Mean Corp Hgb Conc 32.6 g/dL (32-36); Mean Corpuscular Volume 85.4 fL (80-94); Mean Platelet Vol. 9.6 fl (6.2-12.0); Platelet Count 259 K/mm3 (150-450); RBC Distribution Width CV 19.9 % (11.6-14.6); RBC Distribution Width SD 57.1 fl (35.1-43.9); Red Blood Count 3.02 M/mm3 (4.6-6.2); White Blood Count 11.7 K/mm3 (4.4-11.0)
== END ==
LOC: OLS.WCC 04:00
PROVIDERS: PCP Family Medicine Geriatric Medicine; Referring Provider Family Medicine; Visit Provider Family Medicine
DX: I48.91 Unspecified atrial fibrillation (principal); D64.9 Anemia, unspecified; I44.7 Left bundle-branch block, unspecified; I35.0 Nonrheumatic aortic (valve) stenosis
CPT/HCPCS: 36415; 85027

== ENCOUNTER 2025-09-19 16:58 | Inpatient (IN) | payer MEDICARE, OTHER, SELFPAY ==
[2025-09-19 17:00] VITALS: BP 105/64; PULSE 110; RESP 20; TEMP 36.8; O2SAT 96; BMI 26.6
--- NOTE | 2025-09-19 17:16 | CT_ITS ---
PROCEDURE: CT/CTA Chest W/WO Contrast
--- NOTE | 2025-09-19 17:20 | US_ITS ---
PROCEDURE: US/Venous Duplex Imag/Limited/Uni
--- NOTE | 2025-09-19 17:21 | EX.ED.DYSGE1 ---
HPI History of Present Illness Chief Complaint: Palpitations Narrative Narrative: 85-year-old male, resident of [facility] presents with reported hypoxia as well as hypotension. Quite frankly, patient states he is not sure why he was in the emergency department. He denies any chest pain or shortness of breath, and states he does not usually wear oxygen at [facility] facility. Reportedly today had a pulse ox of 86% on room air. He was hypotensive as well. He denies any fevers or chills, no cough. He complains of right lower extremity pain behind his right knee which is chronic for him. He usually ambulates with a walker. He has history of atrial fibrillation, paroxysmal, and was reported to be in A-fib with RVR today as well. Patient denies any leg swelling, no other symptoms. 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 History of aortic stenosis Vitamin D deficiency Allergic rhinitis BPH (benign prostatic hyperplasia) Hematuria Debility Aortic stenosis Bowel obstruction Mitral valve annular calcification Atrial fibrillation with rapid ventricular response Declining functional status Cognitive deficits Vitamin D deficiency Acute metabolic encephalopathy Acute kidney injury Prolonged QT interval Left bundle branch block Anemia Hyperlipidemia Essential (primary) hypertension Home Medications ?Medication ?Instructions ?Recorded ?Last Taken ?Type tamsulosin 0.4 mg capsule 0.4 mg PO QHS urine flow 08/20/19 Unknown History famotidine 40 mg tablet (Pepcid) 40 mg PO DAILY 08/10/20 Unknown History citalopram 10 mg tablet 10 mg PO DAILY 02/18/21 Unknown History donepezil 10 mg tablet 10 mg PO DAILY 02/18/21 Unknown History quetiapine 25 mg tablet 25 mg PO BID 02/18/21 Unknown History ascorbate calcium (vitamin C) 500 500 mg PO DAILY 01/13/22 Unknown History mg tablet carvedilol 3.125 mg tablet 3.125 mg PO BID #180 tabs 03/28/24 Unknown Rx amlodipine 5 mg tablet 5 mg PO QHS #90 tabs 06/22/25 08/02/25 Rx vit C 250 mg-vit E 90 mg-zinc 40 1 tab PO BID 06/22/25 Unknown History mg-copper 1 [id number] capsule (PreserVision AREDS-2) albuterol sulfate 90 mcg/actuation 2 puff inhalation Q6H PRN 08/01/25 Unknown History aerosol inhaler shortness of breath or wheezing clopidogrel 75 mg tablet 75 mg PO DAILY #90 tabs 08/03/25 Unknown Rx losartan 50 mg tablet 50 mg PO DAILY #90 tabs 08/03/25 Unknown Rx acetaminophen 500 mg tablet 1,000 mg (2 x 500 mg) PO Q8 #0 tabs 08/08/25 Unknown Rx sennosides 8.6 mg-docusate sodium 2 tab PO BID #0 tabs 08/08/25 Unknown Rx 50 mg tablet (Stimulant Laxative Plus) losartan 50 mg tablet 50 mg PO QDAY 08/24/25 Unknown History oxycodone 5 mg tablet 2.5 mg (1/2 x 5 mg) PO Q6H PRN 08/30/25 Unknown Rx pain 30 days #60 tabs aspirin 81 mg tablet,delayed 81 mg PO DAILY 09/19/25 Unknown History release (Adult Aspirin Regimen) atorvastatin 20 mg tablet (Lipitor) 20 mg PO QHS 09/19/25 Unknown History ferrous sulfate 325 mg (65 mg 325 mg PO DAILY 09/19/25 Unknown History iron) tablet (Feosol) fluticasone propionate 50 1 spray intranasal BID 09/19/25 Unknown History mcg/actuation nasal spray,suspension Allergy/AdvReac Type Severity Reaction Status Date / Time atorvastatin AdvReac Intermediate Myalgias Verified 09/19/25 16:59 Family History Father Cancer Lung cancer Sister Cancer Breast cancer Pancreas cancer Surgical History History of coronary artery bypass surgery (~07/04/19) History of aortic valve replacement with bioprosthetic valve (~07/04/19) History of right and left heart catheterization (03/02/19) S/P partial colectomy Umbilical hernia, incarcerated (12/04/18) Social History household members: family housing: house current occupational status: retired Smoking Status: Former smoker alcohol intake: never substance use type: does not use caffeine: Yes Type: carbonated beverages and coffee eating out: 1-3 times/week adán/adventism: Zoroastrian seatbelt use: always do you feel safe at home: Yes ROS ROS ED ROS Narrative Review of systems negative for chest pain or shortness of breath. No fevers or chills, no cough, complains of chronic right leg pain and tenderness behind right knee. Reported hypoxia at 86% on room air, does not wear oxygen at [facility]. Reported hypotension as well. Reported atrial fibrillation with rapid ventricular response. Patient denies any leg swelling or any other symptoms. EXAM Physical Exam Narrative Exam Narrative: Afebrile. Vital signs noted. Nontoxic-appearing. Cardiovascular examination reveals mild tachycardia, occasionally irregular. Lungs are clear to auscultation bilaterally, no wheezing or rales appreciated. Abdomen is soft and nontender without guarding or rebound. Patient awake, alert, oriented. No pedal edema. No erythema or overt swelling of right lower extremity. Neurovascularly intact distally with palpable dorsalis pedis pulse. Const Vital Signs: 09/19/25 17:00 09/19/25 17:15 09/19/25 18:58 Temperature 98.3 F Temperature Source Oral Pulse Rate 110 H 85 Respiratory Rate 20 H Respiratory Effort Normal Blood Pressure 105/64 118/69 Blood Pressure Mean 77 85 Pulse Ox 96 99 Oxygen Delivery Method Room Air Room Air 09/19/25 21:00 09/19/25 21:27 Temperature 98.2 F Temperature Source Pulse Rate 86 86 Respiratory Rate 16 16 Respiratory Effort Blood Pressure 124/67 H 124/67 H Blood Pressure Mean 86 86 Pulse Ox 98 98 Oxygen Delivery Method MDM MDM MDM Narrative Medical decision making narrative: Differential diagnosis includes but not limited to pneumonia versus pneumothorax versus pulmonary embolism. EKG was obtained and interpreted by myself independently. Comprehensive workup was pursued. History and physical does not support pneumonia as he has not been having fever or cough. He denies shortness of breath. EKG was obtained and interpreted by myself independently as A-fib with RVR at [address] changes. No STEMI. No significant change from August 04, 2025. I reviewed his laboratory work and he has a white count of 12.4 which think is nonspecific however when compared to prior labs has had leukocytosis. Hemoglobin is stable at 8.3 and platelet count normal at 277. CMP is remarkable for BUN of 30 creatinine is slightly elevated at 1.45 with intermittent kidney injuries. Glucose of 150 with anion gap normal at 12. Lactic acid is elevated at 3.5,, but he is currently not hypotensive. He was bolused normal saline 500 mL secondary to a BNP elevated at 11,684. However, in review of his EMR, in July of this year he had an echocardiogram where ejection fraction was preserved at 55%. Urinalysis shows WBC count of 0-5. He is negative for nitrites. I do not feel he needs antibiotics for a urinary tract infection. On repeat examination, he is resting comfortably. He is no longer hypertensive any systolic blood pressure 129. He is not hypoxic and he is on room air. I reviewed the radiology report of the CTA of the chest. While there is no pulmonary embolism, there is a left lower lobe lung mass that measures 7.4 x 3.0 cm. Upon repeat examination, he is easily awakened. I do feel that he merits at least observation because of his lactic acidosis and previous hypoxia as well as hypotension. I deferred antibiotics to the hospitalist as I do not really feel he is septic. His half-way paperwork states that he is full code. Patient will be discussed with the hospitalist Dr. Lesley Avila for admission versus observation. Disposition is assigned observation. Patient is in stable condition. History & Record Review Discussion w/independent historian: Patient Additional record(s) reviewed:: Prior outpatient record (correction paperwork.) Lab Data Attestation: I reviewed the patient's lab results. Labs: Laboratory Results - last 24 hr 09/19/25 09/19/25 17:28 18:23 WBC 12.4 H RBC 3.42 L Hgb 8.3 L Hct 28.6 L MCV 83.6 MCH 24.3 L MCHC 29.0 L D RDW Std Deviation 56.9 H RDW Coeff of Genesis 19.1 H Plt Count 277 MPV 9.3 Immature Gran % (Auto) 2.200 H Neut % (Auto) 69.4 Lymph % (Auto) 20.8 Linn % (Auto) 7.3 Eos % (Auto) 0.1 Baso % (Auto) 0.2 Absolute Neuts (auto) 8.6 H Absolute Lymphs (auto) 2.57 Nucleated RBC % 0 Sodium 142 Potassium 3.8 Chloride 102 Carbon Dioxide 27.1 Anion Gap 12 BUN 30 H Creatinine 1.45 H Estim Creat Clear Calc 35.89 L Est GFR (MDRD) Non-Af 47 L BUN/Creatinine Ratio 20.3 H Glucose 150 H Lactic Acid 3.5 H* Calcium 8.4 [place] [address] H Urine Color Yellow Urine Clarity Sl. Cloudy Urine pH 5.0 Ur Specific Arma 1.020 Urine Protein 30 H Urine Glucose (UA) Normal Urine Ketones 5 H Urine Occult Blood 10 H Urine Nitrite Negative Urine Bilirubin Negative Urine Urobilinogen 1 H Ur Leukocyte Esterase 25 H Urine RBC 0-5 SEEN Urine WBC 0-5 SEEN Ur Squamous Epith Cells 0 SEEN Urine Bacteria 2+ Hyaline Casts 0-5 SEEN Urine Mucus 1+ Radiography Diagnostic Testing: Clinical Impression(s) from Imaging Studies Chest CTA 09/19/25 17:16 IMPRESSION: Left lower lobe homogeneous density measuring 7.4 x 3.0 cm without air bronchograms and with Hounsfield attenuation of 14, an indeterminate finding. While focal atelectasis is possible, this has an atypical appearance. This may represent a soft tissue mass and follow-up imaging or PET-CT is recommended to exclude neoplasm. No pulmonary embolism. Status post coronary artery bypass and prosthetic aortic valve replacement. Mild atherosclerosis of a normal caliber thoracic aorta. Cholelithiasis. Elevation of the left hemidiaphragm. Reading Location: [id number] Management Discussion w/another healthcare provider: Hospitalist Discharge Plan Dx/Rx/DC Orders Clinical Impression: Lung mass, Lactic acidosis, Elevated brain natriuretic peptide (BNP) level Disposition [facility]: [facility]
[2025-09-19 17:39] LABS: Hematocrit 28.6 % (40-54); Hemoglobin 8.3 g/dL (13.0-16.5); Immature Granulocytes Count 0.270 X10^3/uL (0.0-0.0); Mean Corp Hgb Conc 29.0 g/dL (32-36); Mean Corpuscular Volume 83.6 fL (80-94); Mean Platelet Vol. 9.3 fl (6.2-12.0); NRBC Flagged by Analyzer 0 % (0-5); Platelet Count 277 K/mm3 (150-450); RBC Distribution Width CV 19.1 % (11.6-14.6); RBC Distribution Width SD 56.9 fl (35.1-43.9); Red Blood Count 3.42 M/mm3 (4.6-6.2); White Blood Count 12.4 K/mm3 (4.4-11.0)
[2025-09-19 18:04] LABS: Anion Gap 12 (5-15); BUN 30 mg/dL (4-19); BUN/Creat Ratio 20.3 RATIO (10-20); Calcium,Total 8.4 mg/dL (7.6-11.0); Carbon Dioxide 27.1 mmol/L (21.0-32.0); Chloride 102 mmol/L (98-108); Estimated Creatinine Clearance 35.89 ml/min (50-250); Glucose 150 mg/dL (70-99); Potassium 3.8 mmol/L (3.3-5.1); Pro- Brain NATRIURETIC PEPTIDE 11684 pg/mL (<=1800)
[2025-09-19] MEDS: 0.9% Normal Saline (500mL Bag) 500 ML 1000 ML IV (18:12)
[2025-09-19 18:33] LABS: Squamous Epithelial Cells - UA 0 SEEN /hpf (0-5)
[2025-09-19 18:34] LABS: Color, Urine Yellow (Yellow); Glucose, Dipstick Normal (Normal); Ketone-Dipstick 5 mg/dl (Negative); Leukocyte Esterase-Dipstick 25 /ul (Negative); Nitrite-Dipstick Negative (Negative); Occult Blood-Urine 10 /ul (Negative); Protein-Dipstick 30 mg/dl (Negative); Specific Gravity, Urine 1.020 (1.002-1.030); Urine Bilirubin Dipstick Negative (Negative)
[2025-09-19 18:46] LABS: Mucous, Urine 1+ /hpf (<or=2+); Red Blood Cells-Urine 0-5 SEEN /hpf (0-5)
[2025-09-19 18:58] VITALS: BP 118/69; PULSE 85; O2SAT 99
[2025-09-19 21:00] VITALS: BP 124/67; PULSE 86; RESP 16; O2SAT 98
[2025-09-19 21:27] VITALS: BP 124/67; PULSE 86; RESP 16; TEMP 36.8; O2SAT 98
[2025-09-19 21:35] LABS: Reflex Lactate? Y
--- NOTE | 2025-09-19 21:44 | PCM.HP.STD ---
HPI - General General Date of Admission: 09/19/25 Date of Service: 09/19/25 Chief Complaint: SNF reported hypotension, hypoxia. HPI Narrative The patient is an 85 y/o M w/ PMHx: CAD s/p PCI, valvular heart disease status post AVR, Hx right popliteal traumatic pseudoaneurysm status post PCI, PAF, Chronic normocytic anemia/iron deficiency anemia, GERD with history of Mackey's esophagus, chronic gastritis, Allergic rhinitis, Dementia unclear type with unclear extent with unclear behavioral disturbance history, HTN, HLD, CKD stage II per GFR trend, MGUS, Anxiety and Depression who presents to the [facility] ED on 09/19/2025 with history of palpitations, racing heart as well as halfway facility reported hypoxia transiently at 86% on room air not using any oxygen chronically in addition to reported hypotension prompting them to refer patient to the ED for evaluation. In the ED he does complain of right lower extremity pain behind his knee which is chronic and unchanged. He notes he usually uses a walker at baseline. He does have known A-fib and the [facility] did state he had elevated rate today. Patient denies any recent cough, congestion, URI type symptoms, chest pain, lower extremity swelling. Workup in the ED included T98.3, heart rate 110, BP 105/64, respiratory rate 20, 96% on room air with most recent repeat vitals heart rate 86, BP 124/67, respiratory rate 16, 98% on room air, CBC with WC 12.4, hemoglobin 8.3, MCV 83.6, platelet 277 with left shift, BMP with BUN/Guinan 30/1.45, GFR 47, glucose 150, lactic acid 3.5, NT proBNPII 11,684, urinalysis cloudy, specific gravity 1.020, protein 30, ketone 5, occult blood 10, negative nitrite, leukocyte esterase 25 with no urine WBCs with 2+ urine bacteria reported otherwise UA not marked aside from dehydration evidence, CTA chest with and without contrast with left lower lobe homogenous density measuring 7.4 x 3 cm without any air bronchograms and a Hounsfield attenuation of 14 of indeterminate finding with possibility of focal Elekta cyst however its atypical appearance, possibly soft tissue mass, no evidence of pulmonary emboli, evidence status post CABG and prosthetic aortic valve replacement, mild atherosclerosis, cholelithiasis, elevation of the left hemidiaphragm, duplex ultrasound final read RLE pending upon requested evaluation of patient, EKG with atrial fibrillation with rate 110 with no acute evidence of ischemia. In the ED patient ministered metoprolol 5 mg IV x 1. PFSH Medical History Leg pain, right Debility Macular degeneration 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 History of aortic stenosis Vitamin D deficiency Allergic rhinitis BPH (benign prostatic hyperplasia) Hematuria Debility Aortic stenosis Bowel obstruction Mitral valve annular calcification Atrial fibrillation with rapid ventricular response Declining functional status Cognitive deficits Vitamin D deficiency Acute metabolic encephalopathy Acute kidney injury Prolonged QT interval Left bundle branch block Anemia Hyperlipidemia Essential (primary) hypertension Home Medications ?Medication ?Instructions ?Recorded ?Last Taken ?Type tamsulosin 0.4 mg capsule 0.4 mg PO QHS urine flow 08/20/19 Unknown History famotidine 40 mg tablet (Pepcid) 40 mg PO DAILY 08/10/20 Unknown History citalopram 10 mg tablet 10 mg PO DAILY 02/18/21 Unknown History donepezil 10 mg tablet 10 mg PO DAILY 02/18/21 Unknown History quetiapine 25 mg tablet 25 mg PO BID 02/18/21 Unknown History ascorbate calcium (vitamin C) 500 500 mg PO DAILY 01/13/22 Unknown History mg tablet carvedilol 3.125 mg tablet 3.125 mg PO BID #180 tabs 03/28/24 Unknown Rx amlodipine 5 mg tablet 5 mg PO QHS #90 tabs 06/22/25 08/02/25 Rx vit C 250 mg-vit E 90 mg-zinc 40 1 tab PO BID 06/22/25 Unknown History mg-copper 1 [id number] capsule (PreserVision AREDS-2) albuterol sulfate 90 mcg/actuation 2 puff inhalation Q6H PRN 08/01/25 Unknown History aerosol inhaler shortness of breath or wheezing clopidogrel 75 mg tablet 75 mg PO DAILY #90 tabs 08/03/25 Unknown Rx losartan 50 mg tablet 50 mg PO DAILY #90 tabs 08/03/25 Unknown Rx acetaminophen 500 mg tablet 1,000 mg (2 x 500 mg) PO Q8 #0 tabs 08/08/25 Unknown Rx sennosides 8.6 mg-docusate sodium 2 tab PO BID #0 tabs 08/08/25 Unknown Rx 50 mg tablet (Stimulant Laxative Plus) losartan 50 mg tablet 50 mg PO QDAY 08/24/25 Unknown History oxycodone 5 mg tablet 2.5 mg (1/2 x 5 mg) PO Q6H PRN 08/30/25 Unknown Rx pain 30 days #60 tabs aspirin 81 mg tablet,delayed 81 mg PO DAILY 09/19/25 Unknown History release (Adult Aspirin Regimen) atorvastatin 20 mg tablet (Lipitor) 20 mg PO QHS 09/19/25 Unknown History ferrous sulfate 325 mg (65 mg 325 mg PO DAILY 09/19/25 Unknown History iron) tablet (Feosol) fluticasone propionate 50 1 spray intranasal BID 09/19/25 Unknown History mcg/actuation nasal spray,suspension Allergy/AdvReac Type Severity Reaction Status Date / Time atorvastatin AdvReac Intermediate Myalgias Verified 09/19/25 16:59 Family History Father Cancer Lung cancer Sister Cancer Breast cancer Pancreas cancer Surgical History History of coronary artery bypass surgery (~07/04/19) History of aortic valve replacement with bioprosthetic valve (~07/04/19) History of right and left heart catheterization (03/02/19) S/P partial colectomy Umbilical hernia, incarcerated (12/04/18) Social History (Updated 09/19/25 @ 21:[address] Lesley Avila MD) household members: none housing: [facility] current occupational status: retired Smoking Status: Former smoker alcohol intake: never substance use type: does not use caffeine: Yes Type: carbonated beverages and coffee eating out: 1-3 times/week adán/anabaptism: Jewish seatbelt use: always do you feel safe at home: Yes ROS ROS Narrative Admission Review of Systems: CONSTITUTIONAL: No weight loss, fever, chills, + weakness or fatigue. HEENT: Eyes: No visual loss, blurred vision, double vision or yellow sclerae. Ears, Nose, Throat: No hearing loss, sneezing, congestion, runny nose or sore throat. SKIN: No rash or itching, lesions, wounds. CARDIOVASCULAR: No chest pain, chest pressure or chest discomfort, palpitations, edema, orthopnea, syncopal events. RESPIRATORY: No shortness of breath, cough or sputum, wheezing, hemoptysis. GASTROINTESTINAL: No anorexia, nausea, vomiting or diarrhea, abdominal pain, melena, BRBPR. GENITOURINARY: No dysuria, frequency, urgency or retention. NEUROLOGICAL: + Underlying dementia of unclear extent. No headache, dizziness, syncope, paralysis, ataxia, numbness or tingling in the extremities, focal weakness, change in bowel or bladder control, seizure. MUSCULOSKELETAL: + muscle, back pain, joint pain or stiffness. HEMATOLOGIC: + Chronic anemia, easy bleeding/bruising. LYMPHATICS: No enlarged nodes. No history of splenectomy. PSYCHIATRIC: + History of anxiety and depression. ENDOCRINOLOGIC: No reports of sweating, cold or heat intolerance. No polyuria or polydipsia. ALLERGIES: + History of allergic rhinitis. Vital Signs Vital Signs Vital Signs: 09/19/25 17:00 09/19/25 17:15 09/19/25 18:58 Temperature 98.3 F Temperature Source Oral Pulse Rate 110 H 85 Respiratory Rate 20 H Respiratory Effort Normal Blood Pressure 105/64 118/69 Blood Pressure Mean 77 85 Pulse Ox 96 99 Oxygen Delivery Method Room Air Room Air 09/19/25 21:00 09/19/25 21:27 Temperature 98.2 F Temperature Source Pulse Rate 86 86 Respiratory Rate 16 16 Respiratory Effort Blood Pressure 124/67 H 124/67 H Blood Pressure Mean 86 86 Pulse Ox 98 98 Oxygen Delivery Method Weight Weight: 180 lb 12.465 oz Body Mass Index (BMI) 26.6 Physical Exam Narrative Physical Examination: General: Initially sleeping, awakens with stimuli, alert once more awake, oriented to self, place, month, president but states he is uncertain of the year, notably fatigued, remains cooperative once he becomes more alert, seated upright in the ED bed, no acute distress. Skin: Normal color, normal turgor, no icterus, no cyanosis except occasional stage ecchymoses, abrasion. HEENT: AT/NC, EOMI, PERRLA, dry MM, no carotid bruits or JVD noted. Lungs: Diminished, greater bases, left greater than right, normal respiratory rate, no evidence of any distress, no markedly appreciated rales, ronchi or wheezing. Heart: Improved, irregular, rate normalized; no gallop, rub audible, status post previous AVR. Abdomen: Soft, NTTP, ND, normal BS, no appreciated HSM. Extremities: No cyanosis, no clubbing, mild ankle not markedly pitting bilateral edema. No evidence of any calf pain with palpation. Neurological: Patient awake, alert, oriented as noted, cognitive function suspect baseline intact with underlying dementia noted of unclear extent, pupils equally reactive to light and accommodation, cranial nerves grossly normal, moving all 4 extremities, no focal deficits, strength moderately to severely globally decreased suspect chronic as patient is a halfway facility patient also. Psychiatric: Affect appears flat, fatigued, no acute evidence of depressive or anxiety feelings but does have underlying history. Results Lab / Micro Data 09/19/25 17:28 09/19/25 17:28 Labs: Laboratory Results - last 24 hr 09/19/25 17:28: WBC 12.4 H, RBC 3.42 L, Hgb 8.3 L, Hct 28.6 L, MCV 83.6, MCH 24.3 L, MCHC 29.0 L D, RDW Std Deviation 56.9 H, RDW Coeff of Genesis 19.1 H, Plt Count 277, MPV 9.3, Immature Gran % (Auto) 2.200 H, Neut % (Auto) 69.4, Lymph % (Auto) 20.8, Andrews % (Auto) 7.3, Eos % (Auto) 0.1, Baso % (Auto) 0.2, Absolute Neuts (auto) 8.6 H, Absolute Lymphs (auto) 2.57, Nucleated RBC % 0, Sodium 142, Potassium 3.8, Chloride 102, Carbon Dioxide 27.1, Anion Gap 12, BUN 30 H, Creatinine 1.45 H, Estim Creat Clear Calc 35.89 L, Est GFR (MDRD) Non-Af 47 L, BUN/Creatinine Ratio 20.3 H, Glucose 150 H, Lactic Acid 3.5 H*, Calcium 8.4, [place] [address] H 09/19/25 18:23: Urine Color Yellow, Urine Clarity Sl. Cloudy, Urine pH 5.0, Ur Specific Friend 1.020, Urine Protein 30 H, Urine Glucose (UA) Normal, Urine Ketones 5 H, Urine Occult Blood 10 H, Urine Nitrite Negative, Urine Bilirubin Negative, Urine Urobilinogen 1 H, Ur Leukocyte Esterase 25 H, Urine RBC 0-5 SEEN, Urine WBC 0-5 SEEN, Ur Squamous Epith Cells 0 SEEN, Urine Bacteria 2+, Hyaline Casts 0-5 SEEN, Urine Mucus 1+ Imaging Radiology Impression Chest CTA 09/19/25 17:16 IMPRESSION: Left lower lobe homogeneous density measuring 7.4 x 3.0 cm without air bronchograms and with Hounsfield attenuation of 14, an indeterminate finding. While focal atelectasis is possible, this has an atypical appearance. This may represent a soft tissue mass and follow-up imaging or PET-CT is recommended to exclude neoplasm. No pulmonary embolism. Status post coronary artery bypass and prosthetic aortic valve replacement. Mild atherosclerosis of a normal caliber thoracic aorta. Cholelithiasis. Elevation of the left hemidiaphragm. Reading Location: [id number] Assessment & Plan Assessment/Plan (1) Lung mass: (2) Lactic acidosis: (3) Elevated brain natriuretic peptide (BNP) level: PLAN: Plan The patient is an 85 y/o M w/ PMHx: CAD s/p PCI, valvular heart disease status post AVR, Hx right popliteal traumatic pseudoaneurysm status post PCI, PAF, Chronic normocytic anemia/iron deficiency anemia, GERD with history of Mackey's esophagus, chronic gastritis, Allergic rhinitis, Dementia unclear type with unclear extent with unclear behavioral disturbance history, HTN, HLD, CKD stage II per GFR trend, MGUS, Anxiety and Depression who presents to the [facility] ED on 09/19/2025 with history of palpitations, racing heart as well as halfway facility reported hypoxia transiently at 86% on room air not using any oxygen chronically in addition to reported hypotension prompting them to refer patient to the ED for evaluation. #1. Incidentally noted left lower lobe homogenous density of unclear etiology in addition to [facility] reported transient hypotension and hypoxia, currently not reproducible upon ED evaluation of unclear etiology with significant lactic acidosis of also unclear etiology: Most recent noted CTA chest from outside facility 05/04/2019 with noted areas of atelectasis and chronic interstitial lung disease in the chest but no other concerning findings at that time. Will admit to PCU to be cautious but currently on room air with stable VS and improved HR following ED lopressor low dose x 1, will maintain on oxygen if needed however currently not hypoxic, place on ATC budeonside, PRN albuterol, HOB, IS parameters, will obtain procalcitonin, respiratory panel, antigens and sputum if able to obtain. To be cautious although currently saturating appropriately will obtain ABG also. Urine culture pending. Bld cx x 2 obtained in the ED. Prior to discharge would benefit from consideration of ambulatory oxygen assessment. If all work-up infectiously is unremarkable may consider inpatient versus outpatinet Bx left lower lobe homogenous density, but given not hypoxic or hypotensive certainly if remains stable could be done outpatient. #2. Lactic acidosis of unclear etiology: Lactic acid 3.5, CBC with mild WC elevation with left shift but patient is currently afebrile and no evidence of hypoxia noted currently, CTA does not appear consistent with infection, will continue to hydrate judiciously given elevated BNP although no marked fluid overload on imaging, will continue to trend lactic acid for facility protocol, procalcitonin requested. #3. Abnormal urinalysis: UA with elevated specific gravity 1.020, noted ketones but no marked nitrite or leukocyte esterase noted nor any urine WBCs although there is urine bacteria noted 2+, however at this time does not appear consistent with urinary tract infection, blood culture x 2 pending per ED, will obtain urine culture to to be thorough but again lower suspicion. #4. Acute renal insufficiency/elevated creatinine on Chronic Kidney Disease Stage II per GFR trending: Admission BUN/Cr 30/1.45, GFR 47, baseline renal function primarily 0.9-1.1, repeat BMP in AM, suspect likely related to acute presentation as noted, judiciously hydrating despite BMP given significant lactic acidosis although could be cardiac related but uncertain given CTA chest findings. If renal function worsens low threshold to hold nephrotoxic medication and investigate further. #5. PAF w/ transient RVR: Will continue patient aspirin, Plavix, not on any chronic anticoagulant therapy otherwise, will continue Coreg home regimen. Improved in the ED with lopressor 5 mg IV x 1. #6. CAD, valvular heart disease: Status post PCI and LORENE clipping status post AVR bioprosthetic, will continue patient aspirin, Plavix, statin, Coreg, temporally holding losartan as noted. Most recent echocardiogram noted 08/11/2025 with normal LV size, LV systolic function normal, EF 55%, mildly dilated aortic root, noted aortic valve not well-visualized. #7. History right popliteal traumatic pseudoaneurysm status post mechanical fall: Following with vascular surgeon Dr. Mckeon, status post 08/02/2025 intervention with angioplasty and PCI of the right popliteal artery, will continue aspirin, Plavix, statin, hypertensive regimen with adjustments as needed. #8. Chronic normocytic anemia/iron deficiency anemia: Admission hemoglobin 8.3, MCV 83.6, baseline hemoglobin similar, primarily 7-8, continue to trend, continue iron supplementation. Following with hematology with noted chronic gastritis, Mackey's esophagus however negative for dysplasia. #9. MGUS: Patient with noted serum protein electrophoresis with a faint band in the gamma region however was too low at that time to quantify, following with oncology, most recent noted visit 05/22/2025 with plan for continued monitoring and if further progression low threshold to obtain bone marrow biopsy and continued evaluation and treatment of chronic recurrent iron deficiency. #10. Hypertension: Continue home regimen including amlodipine, Coreg with hold parameters, temporarily holding losartan given concern for renal insufficiency, add back once appropriate, PRN hydralazine. #11. Dementia unclear type or extent with unclear behavioral disturbance history: Complicates presentation, maintain on fall precautions, will continue patient home donepezil regimen, will consult PT/OT/case management for discharge planning. #12. Anxiety and depression: Will continue patient home citalopram and low dose seroquel. #13. BPH with obstructive pathology: Will continue patient on Flomax regimen, monitor for retention. #14. Allergic rhinitis: Will continue patient on fluticasone regimen. #15. GERD with history of Mackey's esophagus: Will continue patient on PPI. #16. DVT prophylaxis: Lovenox. #17. CODE status: Full Code per facility paperwork. Charges/Coding Visit Charges Inpatient E&M: 13938 Init Hosp L3
[2025-09-19 22:24] LABS: Magnesium 1.8 mg/dL (1.5-2.2)
[2025-09-19] MEDS: 0.9% Saline Lock 10 ML Syringe IV (22:31)
[2025-09-19] MEDS: 0.9% Normal Saline (250mL Bag) 250 ML 999 ML IV (22:31)
[2025-09-19 22:35] VITALS: BP 122/91; PULSE 97; RESP 16; TEMP 36.5; O2SAT 96
[2025-09-19 22:36] VITALS: BMI 24.7
[2025-09-19] MEDS: Senna/Docusate Sodium 1 Tablet 2 TABLET PO (22:48)
[2025-09-19] MEDS: 0.9% Normal Saline (1000mL) 1,000 ML 100 ML IV (22:48)
[2025-09-19] MEDS: Fluticasone 0.05% 1 SPRAY NASAL.SRY NASAL (22:49)
[2025-09-19 22:54] LABS: Base Excess 6 mmol/L (-2 to +2); PO2 62 mmHG (75-100); SITE R Brach; SO2 92 % (94-98)
[2025-09-19 23:00] LABS: Procalcitonin 0.37 ng/mL (<=0.10)
[2025-09-20] VITALS (7 sets, daily range): BP systolic 105–125; BP diastolic 68–78; PULSE 68–91; RESP 12–18; TEMP 36–36.6; O2SAT 92–98; BMI 24.7
[2025-09-20 05:54] LABS: Hematocrit 26.6 % (40-54); Hemoglobin 7.7 g/dL (13.0-16.5); Mean Corp Hgb Conc 28.9 g/dL (32-36); Mean Corpuscular Volume 82.9 fL (80-94); Mean Platelet Vol. 9.4 fl (6.2-12.0); POSITIVE DIFFERENTIAL YES; Platelet Count 238 K/mm3 (150-450); RBC Distribution Width CV 18.8 % (11.6-14.6); RBC Distribution Width SD 56.3 fl (35.1-43.9); Red Blood Count 3.21 M/mm3 (4.6-6.2); White Blood Count 19.0 K/mm3 (4.4-11.0)
[2025-09-20 06:02] LABS: Differential Indicated SCAN CRITERIA MET
[2025-09-20 06:05] LABS: Immature Granulocytes Count 0.510 X10^3/uL (0.0-0.0); NRBC Flagged by Analyzer 0 % (0-5)
[2025-09-20 06:20] LABS: AST(SGOT) 89 U/L (<=37); Alanine Aminotransfer ALT/SGPT 58 U/L (<=46); Albumin, Serum 2.1 g/dL (3.4-4.8); Alkaline Phosphatase 176 U/L (40-129); Anion Gap 11 (5-15); BUN 32 mg/dL (4-19); BUN/Creat Ratio 23.6 RATIO (10-20); Calcium,Total 8.2 mg/dL (7.6-11.0); Carbon Dioxide 26.6 mmol/L (21.0-32.0); Chloride 105 mmol/L (98-108); Estimated Creatinine Clearance 38.55 ml/min (50-250); Globulin 4.3 g/dL (2.2-4.2); Glucose 107 mg/dL (70-99); Potassium 3.8 mmol/L (3.3-5.1)
[2025-09-20 06:36] LABS: Differential Comment SCANNED
--- NOTE | 2025-09-20 07:47 | PN.HOSP_ITS ---
Reason for Visit
--- NOTE | 2025-09-20 07:47 | PCM.PN.HOSP ---
Reason for Visit Chief Complaint: SNF reported hypotension, hypoxia. Subjective Subjective Patient is an 85-year-old gentleman resident at [facility] was brought to the emergency department with hypotension and low oxygen saturation. Chest CT obtained on admission demonstrated a left lower lobe homogeneous density. Admitted to a monitored bed for subsequent management Objective Data Objective Data Vital Signs: Vital Signs Temp Pulse Resp BP Pulse Ox O2 Del Method 97.9 F 91 14 108/69 92 Room Air 09/20/25 04:25 09/20/25 04:25 09/20/25 04:25 09/20/25 04:25 09/20/25 04:25 09/20/25 04:31 Oxygen Delivery Method Room Air Weight: 76 kg Body Mass Index (BMI) 24.7 Intake & Output: Intake and Output for Last 24 Hours 09/18/25 09/19/25 09/20/25 23:59 23:59 23:59 Intake Total 900 / 900 Output Total 0 / 0 Balance 900 / 900 Lab / Micro Data 09/20/25 05:02 09/20/25 05:02 Labs: Laboratory Results - last 24 hr 09/19/25 17:28: WBC 12.4 H, RBC 3.42 L, Hgb 8.3 L, Hct 28.6 L, MCV 83.6, MCH 24.3 L, MCHC 29.0 L D, RDW Std Deviation 56.9 H, RDW Coeff of Genesis 19.1 H, Plt Count 277, MPV 9.3, Immature Gran % (Auto) 2.200 H, Neut % (Auto) 69.4, Lymph % (Auto) 20.8, [place] % (Auto) 7.3, Eos % (Auto) 0.1, Baso % (Auto) 0.2, Absolute Neuts (auto) 8.6 H, Absolute Lymphs (auto) 2.57, Nucleated RBC % 0, Sodium 142, Potassium 3.8, Chloride 102, Carbon Dioxide 27.1, Anion Gap 12, BUN 30 H, Creatinine 1.45 H, Estim Creat Clear Calc 35.89 L, Est GFR (MDRD) Non-Af 47 L, BUN/Creatinine Ratio 20.3 H, Glucose 150 H, Lactic Acid 3.5 H*, Calcium 8.4, Phosphorus 3.1, Magnesium 1.8, [place] [address] H, Procalcitonin 0.37 H 10/28/25 18:23: Urine Color Yellow, Urine Clarity Sl. Cloudy, Urine pH 5.0, Ur Specific [place] 1.020, Urine Protein 30 H, Urine Glucose (UA) Normal, Urine Ketones 5 H, Urine Occult Blood 10 H, Urine Nitrite Negative, Urine Bilirubin Negative, Urine Urobilinogen 1 H, Ur Leukocyte Esterase 25 H, Urine RBC 0-5 SEEN, Urine WBC 0-5 SEEN, Ur Squamous Epith Cells 0 SEEN, Urine Bacteria 2+, Hyaline Casts 0-5 SEEN, Urine Mucus 1+ 09/19/25 21:44: Lactic Acid 2.2 H* 09/20/25 05:02: WBC 19.0 H, RBC 3.21 L, Hgb 7.7 L, Hct 26.6 L, MCV 82.9, MCH 24.0 L, MCHC 28.9 L, RDW Std Deviation 56.3 H, RDW Coeff of Genesis 18.8 H, Plt Count 238, MPV 9.4, Immature Gran % (Auto) 2.700 H, Neut % (Auto) 72.1 H, Lymph % (Auto) 16.0 L, [place] % (Auto) 9.0, Eos % (Auto) 0.1, Baso % (Auto) 0.1, Absolute Neuts (auto) 13.7 H, Absolute Lymphs (auto) 3.04, Nucleated RBC % 0, Differential Comment SCANNED, Sodium 142, Potassium 3.8, Chloride 105, Carbon Dioxide 26.6, Anion Gap 11, BUN 32 H, Creatinine 1.35 H, Estim Creat Clear Calc 38.55 L, Est GFR (MDRD) Non-Af 51 L, BUN/Creatinine Ratio 23.6 H, Glucose 107 H, Calcium 8.2, Total Bilirubin 0.46, AST 89 H, ALT 58 H, Alkaline Phosphatase 176 H, Total Protein 6.4, Albumin 2.1 L, Globulin 4.3 H, Albumin/Globulin Ratio 0.5 L Micro: Microbiology 09/19/25 22:35 Mucosa - Nasopharyngeal Respiratory Panel (PCR) - Final ABG Data ABG results: ABG 09/19/25 22:50 Specimen Type ART Sample Site R Brach pH 7.43 Bicarbonate Actual 30.2 H Total CO2 32 Base Excess 6 H O2 Saturation 92 L ABG pCO2 45.1 H ABG pO2 62 L Clayton Test N/A O2 Delivery Device Room Air Vent Mode Not entered Radiography Diagnostic Testing: Radiology Impression Chest CTA 09/19/25 17:16 IMPRESSION: Left lower lobe homogeneous density measuring 7.4 x 3.0 cm without air bronchograms and with Hounsfield attenuation of 14, an indeterminate finding. While focal atelectasis is possible, this has an atypical appearance. This may represent a soft tissue mass and follow-up imaging or PET-CT is recommended to exclude neoplasm. No pulmonary embolism. Status post coronary artery bypass and prosthetic aortic valve replacement. Mild atherosclerosis of a normal caliber thoracic aorta. Cholelithiasis. Elevation of the left hemidiaphragm. Reading Location: [facility] Venous Duplex 09/19/25 17:20 IMPRESSION: No findings suspicious for DVT in the right leg. Large complex heterogeneous fluid collection in the right popliteal fossa which surrounds the popliteal vasculature at its center. This may represent a large complex popliteal Ma's cyst, but may be vascular etiology such as a large thrombosed aneurysm/pseudoaneurysm. CTA may be helpful. Reading Location: [facility] Physical Exam Narrative GENERAL: cooperative HEENT: Atraumatic; normocephalic EYES; Anicteric, Normal Conjunctiva NECK; supple, normal thyroid, RESPIRATORY: Diminished to auscultation CARDIOVASCULAR: Regular S1 S2, GI: soft, normoactive bowel sounds, : No Renal angle tenderness; EXTREMITIES: No edema, no clubbing, MUSCULOSKELETAL: no muscle wasting NEURO: Awake; no lateralizing signs. SKIN: No Rash PSYCH; Flat affect Assessment & Plan Assessment/Plan (1) Lung mass: (2) Lactic acidosis: (3) Elevated brain natriuretic peptide (BNP) level: PLAN: Plan Patient is an 85-year-old gentleman resident at [facility] was brought to the emergency department with hypotension and low oxygen saturation. Chest CT obtained on admission demonstrated a left lower lobe homogeneous density. Admitted to a monitored bed for subsequent management 1.. Sepsis (present on admission) secondary to pneumonia with suspected gram-positive organisms CT of the chest obtained on admission did show Left lower lobe homogeneous density measuring 7.4 x 3.0 cm without air bronchograms and with Hounsfield attenuation of 14, an indeterminate finding. While focal atelectasis is possible, this has an atypical appearance. This may represent a soft tissue mass and follow-up imaging or PET-CT is recommended to exclude neoplasm. In addition patient was found to have elevated lactic acid levels as well as leukocytosis. Blood and sputum cultures sent. Patient placed on Rocephin and Zithromax and placed on oxygen titrated to keep Pulse Ox greater than 90. Cultures including blood and sputum sent also ordered viral respiratory panel, streptococcal and Legionella antigen 2. Anemia ? Secondary to chronic disorder monitoring H&H and transfuse if patient becomes symptomatic or hemoglobin falls below 7 3. Coronary artery disease ? With previous PCI plan is to continue with patient's guideline directed medical therapy 4. Elevated proBNP ? Patient clinical picture not consistent with congestive heart failure 5. Abnormal urinalysis ? Urine cultures so far negative to date 6. Valvular heart disease ? With history of bioprosthetic aortic valve replacement 7. History of right popliteal pseudoaneurysm ? Status post recent angioplasty and stent placement 8. Dyslipidemia ? Patient is on atorvastatin did continue 9. GERD ? Patient is on famotidine 10. BPH with lower urinary obstructive symptoms - Patient treated with tamsulosin 11. Acute renal failure ? Patient creatinine from 08/30/2025 was 0.93 creatinine on admission was 1.45 patient is on IV hydration was serial monitoring of electrolytes ordered 12.. 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 Hypertension ? Blood pressure controlled, home medications continued with dose adjustment as needed 14. Paroxysmal A-fib ? Rate controlled currently not on chronic systemic anticoagulation 15. DVT prophylaxis ? On enoxaparin Time spent in the patient's overall evaluation,decision-making process, review of diagnostic data, adjustment of management, discussion with other providers, nursing nursing and ancillary staff involved in patient's care documentation, 50 Minutes Charges/Coding Visit Charges Inpatient E&M: 78841 [facility] Hosp L3
[2025-09-20] MEDS: Aspirin E.C. 81 MG Tablet PO (08:40)
[2025-09-20] MEDS: Fluticasone 0.05% 1 SPRAY NASAL.SRY NASAL ×2 (08:41→21:35)
[2025-09-20] MEDS: Senna/Docusate Sodium 1 Tablet 2 TABLET PO (08:42)
[2025-09-20] MEDS: Ensure Plus High Protein 120 ML LIQUID PO ×3 (08:52→17:03)
[2025-09-20] MEDS: Ceftriaxone 2 GM in 0.9% Normal Saline (50mL MB+) 50 ML IV (09:57)
[2025-09-20] MEDS: 0.9% Saline Lock 10 ML Syringe IV ×2 (09:58→21:39)
--- NOTE | 2025-09-20 10:30 | CASEMGMT ---
Patient was admitted from [facility]. SHARIF MCCLURE in to discuss discharge planning. Patient confirms that he was at [facility] but is not sure if he will return and asked this RN KAMI to call sister Helena. SHARIF MCCLURE called Helena, who confirms that the plan is for patient to return when medically ready. Helena had no further questions or concerns. SHARIF MCCLURE updated DC production planning supervisor to update [facility]. CM will continue to follow this patient and plan for a safe discharge.
[2025-09-20] MEDS: Azithromycin 500 MG in 0.9% Normal Saline (250mL Bag) 250 ML 250 MG IV (10:50)
[2025-09-20] MEDS: Budesonide Respules 0.5 MG/2 ML AMPUL.NEB. INHALATION ×2 (11:36→19:36)
--- NOTE | 2025-09-20 12:19 | CASEMGMT ---
Addendum entered by Geno Baptiste 09/22/25 09:27: Received notice from Lauren at [facility] that patient is no longer a resident of [facility], transferred from [facility] to the [facility].???Updated RN CM and CM Career Technical Supervisor.? Original Note: Discharge Planning Updates sent to [facility]. Geno Baptiste DC Planning Asst.
--- NOTE | 2025-09-20 12:22 | CASEMGMT ---
Discharge Planning Pt is active with [facility] and receives SN (confirmed). BOWEN order sent via [facility] with PT/OT added. Geno Baptiste DC Planning Asst.
--- NOTE | 2025-09-20 15:05 | CHAPLAIN ---
Type of Pastoral Visit ___ Initial Visit ___ Follow-up Visit ___ On-call Visit ___ General Patient Visit ___ Spiritual Assessment ___ Family Conference ___ Bereavement ___ Rapid Response ___ Code Blue ___ Other (describe below) Pastoral Care Referral From ___ Patient ___ Family ___ Nurse ___ Physician ___ Mixer Foam Rubber ___ Library Supervisor ___ Other (describe below) Sacrament/Intervention ___ Active listening ___ Anointing ___ Mormonism ___ Bereavement ___ Communion ___ Ashley exploration ___ ___ Life review ___ Prayer ___ Reconciliation ___ Sacrament of Sick ___ Supportive presence ___ Wedding ___ Other (describe below) Pastoral Comments two attempts and the patient is sleeping soundly so left a calling card; third attempt he was receiving patient care and unavailable;
[2025-09-21] VITALS (8 sets, daily range): BP systolic 95–131; BP diastolic 57–88; PULSE 81–114; RESP 14–18; TEMP 36.3–36.6; O2SAT 91–98; BMI 26.2
[2025-09-21 05:46] LABS: Hematocrit 26.9 % (40-54); Hemoglobin 7.6 g/dL (13.0-16.5); Immature Granulocytes Count 0.270 X10^3/uL (0.0-0.0); Mean Corp Hgb Conc 28.3 g/dL (32-36); Mean Corpuscular Volume 83.0 fL (80-94); Mean Platelet Vol. 9.5 fl (6.2-12.0); NRBC Flagged by Analyzer 0 % (0-5); Platelet Count 261 K/mm3 (150-450); RBC Distribution Width CV 19.1 % (11.6-14.6); RBC Distribution Width SD 57.3 fl (35.1-43.9); Red Blood Count 3.24 M/mm3 (4.6-6.2); White Blood Count 12.2 K/mm3 (4.4-11.0)
[2025-09-21 06:25] LABS: Anion Gap 10 (5-15); BUN 28 mg/dL (4-19); BUN/Creat Ratio 25.3 RATIO (10-20); Calcium,Total 8.1 mg/dL (7.6-11.0); Carbon Dioxide 26.5 mmol/L (21.0-32.0); Chloride 104 mmol/L (98-108); Estimated Creatinine Clearance 47.31 ml/min (50-250); Glucose 88 mg/dL (70-99); Magnesium 1.7 mg/dL (1.5-2.2); Potassium 3.8 mmol/L (3.3-5.1)
[2025-09-21] MEDS: Budesonide Respules 0.5 MG/2 ML AMPUL.NEB. INHALATION ×2 (06:46→19:34)
--- NOTE | 2025-09-21 07:33 | PN.HOSP_ITS ---
Reason for Visit
--- NOTE | 2025-09-21 07:33 | PCM.PN.HOSP ---
Reason for Visit Chief Complaint: SNF reported hypotension, hypoxia. Subjective Subjective Patient seen WBC count trending down. Hemoglobin however down to 7.6 Objective Data Objective Data Vital Signs: Vital Signs Temp Pulse Resp BP Pulse Ox O2 Del Method 97.4 F L 83 14 115/58 L 91 Room Air 09/21/25 03:29 09/21/25 06:47 09/21/25 06:47 09/21/25 03:29 09/21/25 06:47 09/21/25 06:47 Oxygen Delivery Method Room Air Weight: 80.7 kg Body Mass Index (BMI) 26.2 Intake & Output: Intake and Output for Last 24 Hours 09/19/25 09/20/25 09/21/25 23:59 23:59 23:59 Intake Total 900 / 900 1820 / 1820 Output Total 0 / 0 500 / 500 Balance 900 / 900 1320 / 1320 Lab / Micro Data 09/21/25 05:16 09/21/25 05:16 Labs: Laboratory Results - last 24 hr 09/21/25 05:16: WBC 12.2 H, RBC 3.24 L, Hgb 7.6 L, Hct 26.9 L, MCV 83.0, MCH 23.5 L, MCHC 28.3 L, RDW Std Deviation 57.3 H, RDW Coeff of Genesis 19.1 H, Plt Count 261, MPV 9.5, Immature Gran % (Auto) 2.200 H, Neut % (Auto) 65.2, Lymph % (Auto) 25.2, [place] % (Auto) 6.5, Eos % (Auto) 0.7, Baso % (Auto) 0.2, Absolute Neuts (auto) 8.0 H, Absolute Lymphs (auto) 3.08, Nucleated RBC % 0, Sodium 140, Potassium 3.8, Chloride 104, Carbon Dioxide 26.5, Anion Gap 10, BUN 28 H, Creatinine 1.10, Estim Creat Clear Calc 47.31 L, Est GFR (MDRD) Non-Af 65, BUN/Creatinine Ratio 25.3 H, Glucose 88, Calcium 8.1, Phosphorus 2.8, Magnesium 1.7 Micro: Microbiology 09/19/25 19:58 Blood Culture (Wb) - Left Wrist Bacteria Detection (PCR) - Final Coag Negative Staph 09/19/25 19:58 Blood Culture (Wb) - Left Wrist Blood Culture - Preliminary 09/20/25 08:40 Mucosa - Nasopharyngeal Coronavirus COVID-19 PCR - Final 09/20/25 08:20 Urine, Clean Catch Legionella Antigen - Final 09/20/25 08:20 Urine, Clean Catch Streptococcus pneumoniae Antigen (M - Final 09/19/25 22:35 Mucosa - Nasopharyngeal Respiratory Panel (PCR) - Final Physical Exam Narrative GENERAL: cooperative HEENT: Atraumatic; normocephalic EYES; Anicteric, Normal Conjunctiva NECK; supple, normal thyroid, RESPIRATORY: Diminished to auscultation CARDIOVASCULAR: Regular S1 S2, GI: soft, normoactive bowel sounds, : No Renal angle tenderness; EXTREMITIES: No edema, no clubbing, MUSCULOSKELETAL: no muscle wasting NEURO: Awake; no lateralizing signs. SKIN: No Rash PSYCH; Flat affect Assessment & Plan Assessment/Plan (1) Lung mass: (2) Lactic acidosis: (3) Elevated brain natriuretic peptide (BNP) level: PLAN: Plan Patient is an 85-year-old gentleman resident at [facility] was brought to the emergency department with hypotension and low oxygen saturation. Chest CT obtained on admission demonstrated a left lower lobe homogeneous density. Admitted to a monitored bed for subsequent management 1.. Sepsis (present on admission) secondary to pneumonia with suspected gram-positive organisms CT of the chest obtained on admission did show Left lower lobe homogeneous density measuring 7.4 x 3.0 cm without air bronchograms and with Hounsfield attenuation of 14, an indeterminate finding. While focal atelectasis is possible, this has an atypical appearance. This may represent a soft tissue mass and follow-up imaging or PET-CT is recommended to exclude neoplasm. In addition patient was found to have elevated lactic acid levels as well as leukocytosis. Blood and sputum cultures sent. Patient placed on Rocephin and Zithromax and placed on oxygen titrated to keep Pulse Ox greater than 90. Cultures including blood and sputum sent also ordered viral respiratory panel, streptococcal and Legionella antigen ? 09/21/2025 patient leukocytosis improving. Patient blood cultures positive for coag negative staph possibly contaminant will await final sensitivity 2. Anemia ? Secondary to chronic disorder monitoring H&H and transfuse if patient becomes symptomatic or hemoglobin falls below 7 ? 09/21/2025; hemoglobin down to 7.6 will continue with daily monitoring with CBC with differential 3. Coronary artery disease ? With previous PCI plan is to continue with patient's guideline directed medical therapy 4. Elevated proBNP ? Patient clinical picture not consistent with congestive heart failure 5. Abnormal urinalysis ? Urine cultures so far negative to date 6. Valvular heart disease ? With history of bioprosthetic aortic valve replacement 7. History of right popliteal pseudoaneurysm ? Status post recent angioplasty and stent placement 8. Dyslipidemia ? Patient is on atorvastatin did continue 9. GERD ? Patient is on famotidine 10. BPH with lower urinary obstructive symptoms - Patient treated with tamsulosin 11. Acute renal failure ? Patient creatinine from 08/30/2025 was 0.93 creatinine on admission was 1.45 patient is on IV hydration was serial monitoring of electrolytes ordered 12.. 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 Hypertension ? Blood pressure controlled, home medications continued with dose adjustment as needed 14. Paroxysmal A-fib ? Rate controlled currently not on chronic systemic anticoagulation 15. DVT prophylaxis ? On enoxaparin Time spent in the patient's overall evaluation,decision-making process, review of diagnostic data, adjustment of management, discussion with other providers, nursing nursing and ancillary staff involved in patient's care documentation, 38 Minutes Charges/Coding Visit Charges Inpatient E&M: 75430 [facility] Hosp L2
[2025-09-21] MEDS: Aspirin E.C. 81 MG Tablet PO (09:37)
[2025-09-21] MEDS: Senna/Docusate Sodium 1 Tablet 2 TABLET PO ×2 (09:37→21:31)
[2025-09-21] MEDS: Ceftriaxone 2 GM in 0.9% Normal Saline (50mL MB+) 50 ML IV (09:44)
[2025-09-21] MEDS: Fluticasone 0.05% 1 SPRAY NASAL.SRY NASAL ×2 (10:57→21:29)
[2025-09-21] MEDS: Azithromycin 500 MG in 0.9% Normal Saline (250mL Bag) 250 ML 250 MG IV (10:57)
--- NOTE | 2025-09-21 13:16 | CHAPLAIN ---
Type of Pastoral Visit _x__ Initial Visit ___ Follow-up Visit ___ On-call Visit ___ General Patient Visit ___ Spiritual Assessment ___ Family Conference ___ Bereavement ___ Rapid Response ___ Code Blue ___ Other (describe below) Pastoral Care Referral From _x__ Patient ___ Family ___ Nurse ___ Physician ___ Certified Personal Finance Counselor ___ Host/Hostess Restaurant ___ Other (describe below) Sacrament/Intervention _x__ Active listening ___ Anointing ___ Yazdanism ___ Bereavement ___ Communion ___ Ashley exploration ___ ___ Life review _x__ Prayer ___ Reconciliation ___ Sacrament of Sick _x__ Supportive presence ___ Wedding ___ Other (describe below) Pastoral Comments patient is alert and sitting up in the chair today; pt is welcoming and speaks of his stay at the [facility]; pt says that he is pleased with being at the hospital and hopes to stay longer; pt is agreeable and expresses thanks for the staff; pt answers questions but does not initiate conversation; pt says that he could use a prayer for his health
[2025-09-21] MEDS: Ensure Plus High Protein 120 ML LIQUID PO (18:01)
--- NOTE | 2025-09-21 19:37 | CASEMGMT ---
Care Management - Discharge Planning Received update from Discharge It Risk Analyst that patient is from the [facility] rather than [facility] as demographics indicated and previously reported by patient/sister. Noted patient's sister is the [facility] and this document is on file. Called [facility] Helena Enriquez at [phone]. Helena able to clarify that patient was at [facility] for 3 weeks, for rehab until patient plateaued in therapy and was then transferred to the [facility] for longterm care. Sister reports to be happy about the transfer to new facility as was not the happiest with care at first facility. Sister expressed wish for patient to return to the [facility] at time of discharge from the hospital. Patient is currently private pay, intermediate level of care at [facility] and has been a resident there since 09.06.2025. During conversation sister shared she is the younger sister by 5 years, and has been caring for patient for the last 7-8 years until patient went into the [facility] in July. Sister reports to go with patient to his appointments, and tries to keep everything organized. Sister wanted to share that patient had a flue shot on 08/09 of this year, and that patient goes to the eye doctor every three months for macular degeneration in the right eye. Sister expressed much concern for patient's right leg having residual swelling and pain from prior medical episode, having a sore behind and doesn't want patient to get bed sores, worried about iron levels sharing patient has had to have transfusions earlier this fall, and that patient is supposed to have eye drops in left eye for dry eye and maybe the right eye too. Sister reports would like an update from the doctor as some point before patient is ready for discharge. Answered sister's questions as able, provided supportive listening and emotional support in relation to the job the sister has been providing as a caregiver to the patient. Sister expressed thanks for time and call today. Demographics changed in the EMR to reflect current address and phone number as the [facility]. Handoff to SHARIF Power regarding sister's worry for patient and request to speak with doctor. Plan: Return to [facility], private pay and intermediate level of care - unless skilled needs arise prior to discharge. -LIDA Valenzuela
[2025-09-21] MEDS: MELATONIN 3 MG TABLET PO (21:29)
[2025-09-21] MEDS: 0.9% Saline Lock 10 ML Syringe IV (21:29)
[2025-09-22] VITALS (9 sets, daily range): BP systolic 106–141; BP diastolic 70–83; PULSE 65–105; RESP 16–18; TEMP 36.1–36.8; O2SAT 95–97; BMI 26.4
[2025-09-22] MEDS: Budesonide Respules 0.5 MG/2 ML AMPUL.NEB. INHALATION ×2 (06:55→17:38)
[2025-09-22] MEDS: Fluticasone 0.05% 1 SPRAY NASAL.SRY NASAL ×2 (09:02→22:21)
[2025-09-22] MEDS: Ensure Plus High Protein 120 ML LIQUID PO (09:03)
[2025-09-22] MEDS: Aspirin E.C. 81 MG Tablet PO (09:03)
[2025-09-22] MEDS: Ceftriaxone 2 GM in 0.9% Normal Saline (50mL MB+) 50 ML IV (09:19)
--- NOTE | 2025-09-22 09:25 | CASEMGMT ---
RN CM updated hospitalist regarding sister's concerns regarding right leg swelling, iron levels, concern for skin breakdown, and eye gtts. RN KAMI also updated hospitalist that sister would like to speak with hospitalist. CM will continue to follow this patient and plan for a safe discharge.
--- NOTE | 2025-09-22 09:27 | WOUNDNOTE ---
was asked to assess buttocks by Dr Banegas. some mild redness noted but skin blanches. no open areas noted. pt has calmoseptine ordered and has been applied. no need for wound care at this time.
--- NOTE | 2025-09-22 10:29 | PN.HOSP_ITS ---
Reason for Visit
--- NOTE | 2025-09-22 10:29 | PCM.PN.HOSP ---
Reason for Visit Chief Complaint: SNF reported hypotension, hypoxia. Objective Data Objective Data Vital Signs: Vital Signs Temp Pulse Resp BP Pulse Ox O2 Del Method 98.2 F 105 H 16 141/76 H 95 Room Air 09/22/25 05:44 09/22/25 06:55 09/22/25 06:55 09/22/25 05:44 09/22/25 06:55 09/22/25 07:43 Oxygen Delivery Method Room Air Weight: 178 lb 12.718 oz Body Mass Index (BMI) 26.4 Intake & Output: Intake and Output for Last 24 Hours 09/20/25 09/21/25 09/22/25 23:59 23:59 23:59 Intake Total 1820 / 1820 900 / 900 Output Total 500 / 500 150 / 150 Balance 1320 / 1320 900 / 900 -150 / -150 Lab / Micro Data 09/21/25 05:16 09/21/25 05:16 Micro: Microbiology 09/19/25 18:23 Urine, Clean Catch Urine Culture - Final Culture exhibits no growth. 09/19/25 19:50 Blood Culture (Wb) - Anticubital Left Blood Culture - Preliminary No growth in 48 hours. 09/19/25 19:58 Blood Culture (Wb) - Left Wrist Bacteria Detection (PCR) - Final Coag Negative Staph 09/19/25 19:58 Blood Culture (Wb) - Left Wrist Blood Culture - Preliminary Coag Negative Staph 09/20/25 08:40 Mucosa - Nasopharyngeal Coronavirus COVID-19 PCR - Final 09/20/25 08:20 Urine, Clean Catch Legionella Antigen - Final 09/20/25 08:20 Urine, Clean Catch Streptococcus pneumoniae Antigen (M - Final 09/19/25 22:35 Mucosa - Nasopharyngeal Respiratory Panel (PCR) - Final Physical Exam Narrative Seen and examined. Patient has chronic right popliteal fossa swelling, does not know exact duration. Was admitted with hypoxia and hypotension. Chest CT shows left lower lobe homogeneous density. No cough but mild shortness of breath and chest congestion. Physical exam General: Alert, Oriented x3, Cooperative. BMI 26.4 kg square HEENT: Atraumatic, PERRLA, EOMI, Normocephalic. Oral: No Gingival or Mucosal Lesions/ Ulcerations Neck: Supple, No JVD, Negative Carotid Bruits Chest wall/Lungs: Air entry diminished in bilateral lung bases. No crepitation/rhonchi. Pulsatile swelling of the right popliteal region seems vascular. Cardiovascular: Regular rate and rhythm, Normal S1,S2, systolic murmur Abdomen: Bowel Sounds Present, Soft, Non Tender, Non-Distended : No dysuria. No renal angle tenderness. No suprapubic tenderness. Extremities: Mild bilateral pedal edema, Capillary Refill Less than 3 Seconds Skin: No rashes, No breakdown Musculoskeletal: No Tenderness to Palpation of Joints or Extremities Neurological: Cranial nerves II-XII grossly intact, DTR 2+/4. No acute focal neurological deficit. Psych/Mental Status: Flat affect Assessment & Plan Assessment/Plan (1) Lung mass: (2) Lactic acidosis: (3) Elevated brain natriuretic peptide (BNP) level: PLAN: Plan Patient is an 85-year-old gentleman resident at [facility] was brought to the emergency department with hypotension and low oxygen saturation. Chest CT obtained on admission demonstrated a left lower lobe homogeneous density. Admitted to a monitored bed for subsequent management 1.. Sepsis (present on admission) secondary to pneumonia with suspected gram-positive organisms CT of the chest obtained on admission did show Left lower lobe homogeneous density measuring 7.4 x 3.0 cm without air bronchograms and with Hounsfield attenuation of 14, an indeterminate finding. While focal atelectasis is possible, this has an atypical appearance. This may represent a soft tissue mass and follow-up imaging or PET-CT is recommended to exclude neoplasm. In addition patient was found to have elevated lactic acid levels as well as leukocytosis. Blood and sputum cultures sent. Patient placed on Rocephin and Zithromax and placed on oxygen titrated to keep Pulse Ox greater than 90. Cultures including blood and sputum sent also ordered viral respiratory panel, streptococcal and Legionella antigen 09/22: COVID-19 urinary antigens and respiratory panel are negative. Blood culture COVID is negative staph possible contamination. Leukocytosis improving. Patient did not had usual symptoms of pneumonia including cough or sputum production. Continue ceftriaxone and azithromycin. 2. Anemia ? Secondary to chronic disorder monitoring H&H and transfuse if patient becomes symptomatic or hemoglobin falls below 7 ? 09/21/2025; hemoglobin down to 7.6 will continue with daily monitoring with CBC with differential 09/22: Hemoglobin is above 7. Iron studies shows serum iron, TIBC low iron saturation 10.6%. Ferritin high 750. Transferrin pending. Overall is more suggestive of anemia of chronic disease. As ferritin is high therefore ferrous sulfate discontinued 3. Coronary artery disease ? With previous PCI plan is to continue with patient's guideline directed medical therapy 4. Elevated proBNP ? Patient clinical picture not consistent with congestive heart failure 5. Abnormal urinalysis ? Urine cultures so far negative to date 6. Valvular heart disease ? With history of bioprosthetic aortic valve replacement 7. History of right popliteal pseudoaneurysm ? Status post recent angioplasty and stent placement 09/22: Dr. Channing Lucas is not available in house but I called him and discussed with. CTA abdomen with runoff ordered. Vascular surgery consulted to be seen by Venecia. Last CT angiogram was on 09/19. 8. Dyslipidemia ? Patient is on atorvastatin did continue 9. GERD ? Patient is on famotidine 10. BPH with lower urinary obstructive symptoms - Patient treated with tamsulosin 11. Acute renal failure ? 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 Hypertension ? Blood pressure controlled, home medications continued with dose adjustment as needed 14. Paroxysmal A-fib ? Rate controlled currently not on chronic systemic anticoagulation 15. DVT prophylaxis ? On enoxaparin Clinical Impression(s) from Imaging Studies Chest CTA 09/19/25 17:16 IMPRESSION: Left lower lobe homogeneous density measuring 7.4 x 3.0 cm without air bronchograms and with Hounsfield attenuation of 14, an indeterminate finding. While focal atelectasis is possible, this has an atypical appearance. This may represent a soft tissue mass and follow-up imaging or PET-CT is recommended to exclude neoplasm. No pulmonary embolism. Status post coronary artery bypass and prosthetic aortic valve replacement. Mild atherosclerosis of a normal caliber thoracic aorta. Cholelithiasis. Elevation of the left hemidiaphragm. Venous Duplex 09/19/25 17:20 IMPRESSION: No findings suspicious for DVT in the right leg. Large complex heterogeneous fluid collection in the right popliteal fossa which surrounds the popliteal vasculature at its center. This may represent a large complex popliteal Ma's cyst, but may be vascular etiology such as a large thrombosed aneurysm/pseudoaneurysm. CTA may be helpful. Reading Location: [id number] Microbiology Past 72 Hours 09/19/25 18:23 Urine, Clean Catch Urine Culture - Final Culture exhibits no growth. 09/19/25 19:50 Blood Culture (Wb) - Anticubital Left Blood Culture - Preliminary No growth in 48 hours. 09/19/25 19:58 Blood Culture (Wb) - Left Wrist Bacteria Detection (PCR) - Final Coag Negative Staph 09/19/25 19:58 Blood Culture (Wb) - Left Wrist Blood Culture - Preliminary Coag Negative Staph 09/20/25 08:40 Mucosa - Nasopharyngeal Coronavirus COVID-19 PCR - Final 09/20/25 08:20 Urine, Clean Catch Legionella Antigen - Final 09/20/25 08:20 Urine, Clean Catch Streptococcus pneumoniae Antigen (M - Final 09/19/25 22:35 Mucosa - Nasopharyngeal Respiratory Panel (PCR) - Final Laboratory Results 09/22/25 09:53: Iron 15 L, TIBC 141 L, Iron Saturation 10.6, Unsaturated IBC 126 L, Transferrin Pending, Ferritin 750 H 09/22/25 13:13: POC Glucose 138 H Charges/Coding Addendum Addendum: Total time of the visit including total time spent in counseling or coordination of care, (more than 50% of the total time, spent in obtaining medical information from nurses and other ancillary care providers ,explaining to the patient about labs, imaging, diagnosis and management of active complex medical conditions), discussion with vascular surgery regarding right leg PAD, atherosclerosis status post stent and right popliteal artery pseudoaneurysm, review of labs and imaging and then clinical update given to his sister is 45 minutes. Visit Charges Inpatient E&M: 42781 Subs Hosp L3
[2025-09-22] MEDS: Azithromycin 500 MG in 0.9% Normal Saline (250mL Bag) 250 ML 250 MG IV (10:31)
[2025-09-22 10:56] LABS: Ferritin 750 ng/mL (37-417); Iron 15 ug/dL (65-175); Iron Binding Capacity,Unsat 126 ug/dL (228-428)
[2025-09-22 11:47] LABS: Iron Binding Capacity,Total 141 ug/dL (250-450)
--- NOTE | 2025-09-22 12:39 | EX.PCM.CON.S ---
Assessment & Plan Assessment/Plan (1) PAD (peripheral artery disease): PLAN: By exam, the swelling appeared stable to me today. Obtained repeat duplex which redemonstrated successfully thrombosed pseudoaneurysm and patent popliteal stent and also obtained CTA runoff which demonstrated the same; no other abnormalities identified. Discussed with patient that this was a large pseudoaneurysm which is now fully clotted and this can contribute to ongoing discomfort and swelling; this may take months to fully resolve. No indication for any further intervention at this time. May apply ice/gentle heat if that provides relief. HPI Consult Data Date of Consult: 09/22/25 HPI Narrative HPI Narrative: ELIAS JAQUEZ, is a 85 M who presents to the [facility] ER due to reported hypoxia at SNF and admitted for pneumonia. We are consulted regarding his persistent pain and swelling behind his R knee. He had a large 7cm R popliteal aneurysm which was excluded with covered stent placement by Dr. Mckeon on 08/02/25. Initial post-intervention imaging a few weeks ago demonstrated patent stent and successfully occluded and thrombosed pseudoaneurysm. Patient reports that he feels the swelling and pain in this area is worsened. 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 History of aortic stenosis Vitamin D deficiency Allergic rhinitis BPH (benign prostatic hyperplasia) Hematuria Debility Aortic stenosis Bowel obstruction Mitral valve annular calcification Atrial fibrillation with rapid ventricular response Declining functional status Cognitive deficits Vitamin D deficiency Acute metabolic encephalopathy Acute kidney injury Prolonged QT interval Left bundle branch block Anemia Hyperlipidemia Essential (primary) hypertension Home Medications ?Medication ?Instructions ?Recorded ?Last Taken ?Type tamsulosin 0.4 mg capsule 0.4 mg PO QHS urine flow 08/20/19 Unknown History famotidine 40 mg tablet (Pepcid) 40 mg PO DAILY 08/10/20 Unknown History citalopram 10 mg tablet 10 mg PO DAILY 02/18/21 Unknown History donepezil 10 mg tablet 10 mg PO DAILY 02/18/21 Unknown History quetiapine 25 mg tablet 25 mg PO BID 02/18/21 Unknown History ascorbate calcium (vitamin C) 500 500 mg PO DAILY 01/13/22 Unknown History mg tablet carvedilol 3.125 mg tablet 3.125 mg PO BID #180 tabs 03/28/24 Unknown Rx amlodipine 5 mg tablet 5 mg PO QHS #90 tabs 06/22/25 08/02/25 Rx vit C 250 mg-vit E 90 mg-zinc 40 1 tab PO BID 06/22/25 Unknown History mg-copper 1 [id number] capsule (PreserVision AREDS-2) albuterol sulfate 90 mcg/actuation 2 puff inhalation Q6H PRN 08/01/25 Unknown History aerosol inhaler shortness of breath or wheezing clopidogrel 75 mg tablet 75 mg PO DAILY #90 tabs 08/03/25 Unknown Rx losartan 50 mg tablet 50 mg PO DAILY #90 tabs 08/03/25 Unknown Rx acetaminophen 500 mg tablet 1,000 mg (2 x 500 mg) PO Q8 #0 tabs 08/08/25 Unknown Rx sennosides 8.6 mg-docusate sodium 2 tab PO BID #0 tabs 08/08/25 Unknown Rx 50 mg tablet (Stimulant Laxative Plus) losartan 50 mg tablet 50 mg PO QDAY 08/24/25 Unknown History oxycodone 5 mg tablet 2.5 mg (1/2 x 5 mg) PO Q6H PRN 08/30/25 Unknown Rx pain 30 days #60 tabs aspirin 81 mg tablet,delayed 81 mg PO DAILY 09/19/25 Unknown History release (Adult Aspirin Regimen) atorvastatin 20 mg tablet (Lipitor) 20 mg PO QHS 09/19/25 Unknown History ferrous sulfate 325 mg (65 mg 325 mg PO DAILY 09/19/25 Unknown History iron) tablet (Feosol) fluticasone propionate 50 1 spray intranasal BID 09/19/25 Unknown History mcg/actuation nasal spray,suspension Allergy/AdvReac Type Severity Reaction Status Date / Time No Known Allergies Allergy Verified 09/20/25 00:05 Family History Father Cancer Lung cancer Sister Cancer Breast cancer Pancreas cancer Surgical History History of coronary artery bypass surgery (~07/04/19) History of aortic valve replacement with bioprosthetic valve (~07/04/19) History of right and left heart catheterization (03/02/19) S/P partial colectomy Umbilical hernia, incarcerated (12/04/18) Social History household members: none housing: long-term current occupational status: retired Smoking Status: Former smoker alcohol intake: never substance use type: does not use caffeine: Yes Type: carbonated beverages and coffee eating out: 1-3 times/week adán/taoist: Hindu seatbelt use: always do you feel safe at home: Yes Physical Exam Narrative Exam Const General: cooperative, comfortable and no acute distress Orientation: alert, awake and oriented x3 HENMT Head: normocephalic and atraumatic Ears: hearing grossly normal bilaterally and external ears normal Nose: external nose normal Eyes General: appearance normal, both eyes and all related structures Neck Neck: normal visual inspection Resp Effort & Inspection: normal respiratory effort, able to speak in complete sentences, no grunting, not labored and no stridor Cardio Rate: regular rate Rhythm: abnormal rhythm irregularly irregular Skin General: no rashes or lesions noted Wounds: no wounds Neuro General: moves all extremities Speech: speech normal Extremities stable swelling in the popliteal fossa, no pulsation to palpation, no bruit on auscultation Psych Appearance: grossly normal Affect: normal affect Speech and Movement: speech and movement normal Attitude: cooperative Lab / Micro Data 09/21/25 05:16 09/21/25 05:16 Labs: Laboratory Results - last 24 hr 09/22/25 09:53: Iron 15 L, TIBC 141 L, Iron Saturation 10.6, Unsaturated IBC 126 L, Ferritin 750 H Micro: Microbiology 09/19/25 18:23 Urine, Clean Catch Urine Culture - Final Culture exhibits no growth. 09/19/25 19:50 Blood Culture (Wb) - Anticubital Left Blood Culture - Preliminary No growth in 48 hours. 09/19/25 19:58 Blood Culture (Wb) - Left Wrist Bacteria Detection (PCR) - Final Coag Negative Staph 09/19/25 19:58 Blood Culture (Wb) - Left Wrist Blood Culture - Preliminary Coag Negative Staph Charges/Coding Visit Charges Inpatient E&M: 54746 Init Hosp L1
--- NOTE | 2025-09-22 13:33 | ADUL_ITS ---
Reason For Study VL/US Art Duplex Unilat Lower Ext
--- NOTE | 2025-09-22 13:53 | CASEMGMT ---
Dischage Planning Updates sent via [facility] to [facility] with note of in-pt conversion and that pt will likely return over the weekend. Green Sheet completed and sent to RN KAMI. Geno Baptiste DC Planning Asst.
--- NOTE | 2025-09-22 15:18 | CT_ITS ---
PROCEDURE: CT/CTA Abd w/Runoff W/WO Contrast
[2025-09-22 16:42] LABS: Hematocrit 26.4 % (40-54); Hemoglobin 7.9 g/dL (13.0-16.5); Immature Granulocytes Count 0.220 X10^3/uL (0.0-0.0); Mean Corp Hgb Conc 29.9 g/dL (32-36); Mean Corpuscular Volume 81.7 fL (80-94); Mean Platelet Vol. 9.3 fl (6.2-12.0); NRBC Flagged by Analyzer 0 % (0-5); Platelet Count 285 K/mm3 (150-450); RBC Distribution Width CV 19.4 % (11.6-14.6); RBC Distribution Width SD 56.6 fl (35.1-43.9); Red Blood Count 3.23 M/mm3 (4.6-6.2); White Blood Count 14.5 K/mm3 (4.4-11.0)
[2025-09-22 16:55] LABS: Anion Gap 10 (5-15); BUN 25 mg/dL (4-19); BUN/Creat Ratio 24.0 RATIO (10-20); Calcium,Total 8.1 mg/dL (7.6-11.0); Carbon Dioxide 25.2 mmol/L (21.0-32.0); Chloride 104 mmol/L (98-108); Estimated Creatinine Clearance 49.56 ml/min (50-250); Glucose 111 mg/dL (70-99); Potassium 3.5 mmol/L (3.3-5.1)
--- NOTE | 2025-09-22 17:01 | CASEMGMT ---
Social Work Phone call to pt sister/HCPOA [place] and updated that pt will likely return to [facility] over the weekend and the [facility] was asked to bring pt back under his Medicare benefit to receive skilled therapy services. [place] agreeable to dc plan. Plan: [facility], when medically ready. Green Sheet on chart to facilitate a weekend discharge. ERMIAS Santos
[2025-09-22] MEDS: Multivitamin (Healthy Eyes) Capsule 1 CAP PO (22:23)
[2025-09-23] VITALS (8 sets, daily range): BP systolic 119–137; BP diastolic 61–92; PULSE 63–102; RESP 16–19; TEMP 36.4–36.6; O2SAT 93–98; BMI 26.7
[2025-09-23] MEDS: Budesonide Respules 0.5 MG/2 ML AMPUL.NEB. INHALATION ×2 (06:47→17:46)
[2025-09-23 07:24] LABS: Hematocrit 27.4 % (40-54); Hemoglobin 8.0 g/dL (13.0-16.5); Immature Granulocytes Count 0.190 X10^3/uL (0.0-0.0); Mean Corp Hgb Conc 29.2 g/dL (32-36); Mean Corpuscular Volume 81.5 fL (80-94); Mean Platelet Vol. 9.3 fl (6.2-12.0); NRBC Flagged by Analyzer 0 % (0-5); Platelet Count 283 K/mm3 (150-450); RBC Distribution Width CV 19.4 % (11.6-14.6); RBC Distribution Width SD 56.0 fl (35.1-43.9); Red Blood Count 3.36 M/mm3 (4.6-6.2); White Blood Count 11.6 K/mm3 (4.4-11.0)
[2025-09-23 07:52] LABS: Anion Gap 11 (5-15); BUN 21 mg/dL (4-19); BUN/Creat Ratio 21.4 RATIO (10-20); Calcium,Total 8.0 mg/dL (7.6-11.0); Carbon Dioxide 23.4 mmol/L (21.0-32.0); Chloride 104 mmol/L (98-108); Estimated Creatinine Clearance 52.57 ml/min (50-250); Glucose 84 mg/dL (70-99); Potassium 3.3 mmol/L (3.3-5.1)
[2025-09-23] MEDS: Aspirin E.C. 81 MG Tablet PO (07:55)
[2025-09-23 08:08] LABS: Transferrin 126 mg/dL (149-313)
[2025-09-23] MEDS: Ceftriaxone 2 GM in 0.9% Normal Saline (50mL MB+) 50 ML IV (09:54)
[2025-09-23] MEDS: Fluticasone 0.05% 1 SPRAY NASAL.SRY NASAL (09:56)
--- NOTE | 2025-09-23 09:58 | PCM.TXEXTCAR ---
Diet Diet Order/Speech Therapy: INPATIENT Hospital Diet / Speech Therapy Order(s) 09/19/25 22:17 Diet: Cardiac - Heart Healthy Food consistency:: Regular Liquid Consistency:: Regular/Thin Routine Orders/Code Status Suppository Type: Dulcolax 10mg Suppository Frequency: Daily PRN DC O2, CPAP, BIPAP needs Home O2 Discharge instructions: No Therapies Extremity Affected:: Bilateral Lower Physical Therapy: Eval and Treat Occupational Therapy: Eval and Treat Speech Therapy: Eval and Treat Problem/Diagnosis (1) PAD (peripheral artery disease): Status: Acute Code(s): I73.9 - Peripheral vascular disease, unspecified Plan Patient is an 85-year-old gentleman resident at [facility] was brought to the emergency department with hypotension and low oxygen saturation. Chest CT obtained on admission demonstrated a left lower lobe homogeneous density. Admitted to a monitored bed for subsequent management 1.. Sepsis (present on admission) secondary to pneumonia with suspected gram-positive organisms CT of the chest obtained on admission did show Left lower lobe homogeneous density measuring 7.4 x 3.0 cm without air bronchograms and with Hounsfield attenuation of 14, an indeterminate finding. While focal atelectasis is possible, this has an atypical appearance. This may represent a soft tissue mass and follow-up imaging or PET-CT is recommended to exclude neoplasm. In addition patient was found to have elevated lactic acid levels as well as leukocytosis. Blood and sputum cultures sent. Patient placed on Rocephin and Zithromax and placed on oxygen titrated to keep Pulse Ox greater than 90. Cultures including blood and sputum sent also ordered viral respiratory panel, streptococcal and Legionella antigen 09/22: COVID-19 urinary antigens and respiratory panel are negative. Blood culture COVID is negative staph possible contamination. Leukocytosis improving. Patient did not had usual symptoms of pneumonia including cough or sputum production. Continue ceftriaxone and azithromycin. 2. Anemia ? Secondary to chronic disorder monitoring H&H and transfuse if patient becomes symptomatic or hemoglobin falls below 7 ? 09/21/2025; hemoglobin down to 7.6 will continue with daily monitoring with CBC with differential 09/22: Hemoglobin is above 7. Iron studies shows serum iron, TIBC low iron saturation 10.6%. Ferritin high 750. Transferrin pending. Overall is more suggestive of anemia of chronic disease. As ferritin is high therefore ferrous sulfate discontinued 3. Coronary artery disease ? With previous PCI plan is to continue with patient's guideline directed medical therapy 4. Elevated proBNP ? Patient clinical picture not consistent with congestive heart failure 5. Abnormal urinalysis ? Urine cultures so far negative to date 6. Valvular heart disease ? With history of bioprosthetic aortic valve replacement 7. History of right popliteal pseudoaneurysm ? Status post recent angioplasty and stent placement 09/22: Dr. Channing Lucas is not available in house but I called him and discussed with. CTA abdomen with runoff ordered. Vascular surgery consulted to be seen by Venecia. Last CT angiogram was on 09/19. 8. Dyslipidemia ? Patient is on atorvastatin did continue 9. GERD ? Patient is on famotidine 10. BPH with lower urinary obstructive symptoms - Patient treated with tamsulosin 11. Acute renal failure ? 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 Hypertension ? Blood pressure controlled, home medications continued with dose adjustment as needed 14. Paroxysmal A-fib ? Rate controlled currently not on chronic systemic anticoagulation 15. DVT prophylaxis ? On enoxaparin Clinical Impression(s) from Imaging Studies Chest CTA 09/19/25 17:16 IMPRESSION: Left lower lobe homogeneous density measuring 7.4 x 3.0 cm without air bronchograms and with Hounsfield attenuation of 14, an indeterminate finding. While focal atelectasis is possible, this has an atypical appearance. This may represent a soft tissue mass and follow-up imaging or PET-CT is recommended to exclude neoplasm. No pulmonary embolism. Status post coronary artery bypass and prosthetic aortic valve replacement. Mild atherosclerosis of a normal caliber thoracic aorta. Cholelithiasis. Elevation of the left hemidiaphragm. Venous Duplex 09/19/25 17:20 IMPRESSION: No findings suspicious for DVT in the right leg. Large complex heterogeneous fluid collection in the right popliteal fossa which surrounds the popliteal vasculature at its center. This may represent a large complex popliteal Ma's cyst, but may be vascular etiology such as a large thrombosed aneurysm/pseudoaneurysm. CTA may be helpful. Reading Location: [facility] Microbiology Past 72 Hours 09/19/25 18:23 Urine, Clean Catch Urine Culture - Final Culture exhibits no growth. 09/19/25 19:50 Blood Culture (Wb) - Anticubital Left Blood Culture - Preliminary No growth in 48 hours. 09/19/25 19:58 Blood Culture (Wb) - Left Wrist Bacteria Detection (PCR) - Final Coag Negative Staph 09/19/25 19:58 Blood Culture (Wb) - Left Wrist Blood Culture - Preliminary Coag Negative Staph 09/20/25 08:40 Mucosa - Nasopharyngeal Coronavirus COVID-19 PCR - Final 09/20/25 08:20 Urine, Clean Catch Legionella Antigen - Final 09/20/25 08:20 Urine, Clean Catch Streptococcus pneumoniae Antigen (M - Final 09/19/25 22:35 Mucosa - Nasopharyngeal Respiratory Panel (PCR) - Final Laboratory Results 09/22/25 09:53: Iron 15 L, TIBC 141 L, Iron Saturation 10.6, Unsaturated IBC 126 L, Transferrin Pending, Ferritin 750 H 09/22/25 13:13: POC Glucose 138 H Allergies/Procedures Done in Hospital Allergies No Known Allergies Allergy (Verified 09/20/25 00:05) Type of Care/Length of Stay Estimated LOS: More Than 30 Days Type of Care Needed: Skilled Rehab Potential: Good Prognosis: Good Additional Orders/Day of Discharge Day of Discharge: 09/23/25 Dietary and Speech Recommendations Dietitian Recommendations/Changes: Continue Cardiac diet to manage medical conditions. Continue 120mL Ensure Plus High Protein TID to provide supplemental energy. Discharge Plan Admission Admit Date/Time: 09/20/25 18:33 Attending Provider: Pedro Banegas Primary Care Provider: Husam Khan Chi Consulting Providers: Lesley Avila; Roger Sherman; Channing Mckeon Discharge Orders/Prescriptions Prescriptions: New ipratropium-albuterol 0.5 mg-3 mg(2.5 mg base)/3 mL Solution For Nebulization 3 ml inhalation Q6H.RT PRN (Reason: sob) Qty: 0 0RF carboxymethylcellulose sodium [Refresh Celluvisc] 1 % Dropperette,Gel 1 drp EACH EYE DAILY Qty: 0 0RF guaifenesin [Mucus Relief ER] 1,200 mg Tablet Extended Release 12hr 1,200 mg PO BID 7 Days Qty: 0 0RF cefdinir 300 mg capsule 300 mg PO BID 4 Days Qty: 8 0RF Continued famotidine [Pepcid] 40 mg tablet 40 mg PO DAILY citalopram 10 mg tablet 10 mg PO DAILY Patient Comments: Take 1 Tablet orally once per Day for 30 Days donepezil 10 mg tablet 10 mg PO DAILY Patient Comments: TAKE 1 TABLET BY MOUTH DAILY WITH SUPPER quetiapine 25 mg tablet 25 mg PO BID ascorbate calcium (vitamin C) 500 mg tablet 500 mg PO DAILY PreserVision AREDS-2 250-90-40-1 mg capsule 1 tab PO BID amlodipine 5 mg tablet 5 mg PO QHS Qty: 90 3RF tamsulosin 0.4 MG capsule 0.4 mg PO QHS acetaminophen 500 mg Tablet 1,000 mg PO Q8 Qty: 0 0RF Rx Instructions: Acetaminophen 1 g Q8 hourly for 1 week for pain and then every 8 hourly as needed for pain sennosides-docusate sodium [Stimulant Laxative Plus] 8.6-50 mg Tablet 2 tab PO BID Qty: 0 0RF aspirin [Adult Aspirin Regimen] 81 mg tablet,delayed release (DR/EC) 81 mg PO DAILY atorvastatin [Lipitor] 20 mg tablet 20 mg PO QHS ferrous sulfate [Feosol] 325 mg (65 mg iron) tablet 325 mg PO DAILY fluticasone propionate 50 mcg/actuation spray,suspension 1 spray INTRANASAL BID oxycodone 5 mg tablet 2.5 mg PO Q6H PRN (Reason: pain (scale score 7-10)) 2 Days Qty: 7 0RF albuterol sulfate 90 mcg/actuation HFA aerosol inhaler 2 puff INHALATION Q6H PRN (Reason: shortness of breath or wheezing) carvedilol 3.125 mg tablet 3.125 mg PO BID Qty: 180 3RF Rx Instructions: must administer with a meal/food clopidogrel 75 mg tablet 75 mg PO DAILY Qty: 90 4RF Changed losartan 50 mg tablet 25 mg PO DAILY Qty: 90 4RF Discontinued losartan 50 mg tablet 50 mg PO QDAY Referrals / Follow Up: Kahlil Soto DO [Med Staff - Active Staff, Pulmonary Medicine] - Within 1 Month Referral Note: left lower lung mass Channing Mckeon MD [Med Staff - Active Staff, Vascular Surgery] - Within 2 Weeks Husam Khan Chi, MD [Primary Care Provider, Geriatrics] Disposition Disposition (needs filled in before D/C Order can be placed): [facility]
[2025-09-23] MEDS: Multivitamin (Healthy Eyes) Capsule 1 CAP PO (10:00)
[2025-09-23] MEDS: Azithromycin 500 MG in 0.9% Normal Saline (250mL Bag) 250 ML 250 MG IV (11:11)
--- NOTE | 2025-09-23 11:52 | PCM.DC.SUM ---
Providers Date of Admission: 09/20/25 Date of Discharge: 09/23/25 Primary Care Physician: Dr. Husam Khan MD Consultations 09/22/25 09:19 Consult: Onc/Wound/business area manager Routine Comment: Reason for Consult:: back skin erosion/breakdown 09/22/25 12:07 Consult: Vascular Surgery Routine Consulting Provider: Channing Mckeon Reason for Consult: right popliteal vascular swelling EMERGENT Consult: No MD Notified: Yes Date Notified: 09/22/25 Time Notified: 12:07 Method of Notification: Text Reason For Visit: LUNG MASS, LACTIC ACIDOSIS Diagnosis Discharge Diagnosis (1) PAD (peripheral artery disease): Status: Acute Code(s): I73.9 - Peripheral vascular disease, unspecified Plan Patient is an 85-year-old gentleman resident at [facility] was brought to the emergency department with hypotension and low oxygen saturation. Chest CT obtained on admission demonstrated a left lower lobe homogeneous density. Admitted to a monitored bed for subsequent management 1.. Sepsis (present on admission) secondary to pneumonia with suspected gram-positive organisms CT of the chest obtained on admission did show Left lower lobe homogeneous density measuring 7.4 x 3.0 cm without air bronchograms and with Hounsfield attenuation of 14, an indeterminate finding. While focal atelectasis is possible, this has an atypical appearance. This may represent a soft tissue mass and follow-up imaging or PET-CT is recommended to exclude neoplasm. In addition patient was found to have elevated lactic acid levels as well as leukocytosis. Blood and sputum cultures sent. Patient placed on Rocephin and Zithromax and placed on oxygen titrated to keep Pulse Ox greater than 90. Cultures including blood and sputum sent also ordered viral respiratory panel, streptococcal and Legionella antigen 09/22: COVID-19 urinary antigens and respiratory panel are negative. Blood culture COVID is negative staph possible contamination. Leukocytosis improving. Patient did not had usual symptoms of pneumonia including cough or sputum production. Continue ceftriaxone and azithromycin. 09/23: Patient had 4 days of IV ceftriaxone and Zithromax. Discharged on 4 more days of cefdinir. Discussed with patient's sister yesterday regarding follow-up in pulmonary clinic for left lower lobe homogeneous density mentioned above. 2. Anemia ? Secondary to chronic disorder monitoring H&H and transfuse if patient becomes symptomatic or hemoglobin falls below 7 ? 09/21/2025; hemoglobin down to 7.6 will continue with daily monitoring with CBC with differential 09/22: Hemoglobin is above 7. Iron studies shows serum iron, TIBC low iron saturation 10.6%. Ferritin high 750. Transferrin pending. Overall is more suggestive of anemia of chronic disease. As ferritin is high therefore ferrous sulfate discontinued 09/23: H&H 8.0/27.4%. Calcium 8.1. Anemia secondary to chronic disease with transferrin 126, low 3. Coronary artery disease ? With previous PCI plan is to continue with patient's guideline directed medical therapy 4. Elevated proBNP ? Patient clinical picture not consistent with congestive heart failure 5. Abnormal urinalysis ? Urine cultures so far negative to date 6. Valvular heart disease ? With history of bioprosthetic aortic valve replacement 7. History of right popliteal pseudoaneurysm ? Status post recent angioplasty and stent placement 09/22: Dr. Channing Lucas is not available in house but I called him and discussed with. CTA abdomen with runoff ordered. Vascular surgery consulted to be seen by Venecia. Last CT angiogram was on 09/19. 09/23: CT abdomen with runoff reviewed with the vascular surgeon. No increase in size. Patient complain of pain over right lower extremity. Only vascular pain. Recommended ice for local relief 8. Dyslipidemia ? Patient is on atorvastatin, continue 9. GERD ? Patient is on famotidine 10. BPH with lower urinary obstructive symptoms - Patient treated with tamsulosin 11. Acute renal failure ? 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 Hypertension ? Blood pressure controlled, home medications continued with dose adjustment as needed 14. Paroxysmal A-fib ? Rate controlled currently not on chronic systemic anticoagulation 15. DVT prophylaxis ? On enoxaparin Discharge medication reconciliation done. Discharge follow-up instructions completed. Discharge process discussed with the patient and all questions were answered to patient's satisfaction. Follow with PCP in 1 to 2 weeks Total time spent, exact 35 minutes on discharge meds reconciliation, examination, coordination of care with nurses and ancillary staff, review of imaging and blood test and discussion with the patient on follow-up instructions. Microbiology Past 72 Hours 09/19/25 19:58 Blood Culture (Wb) - Left Wrist Bacteria Detection (PCR) - Final Coag Negative Staph 09/19/25 19:58 Blood Culture (Wb) - Left Wrist Blood Culture - Preliminary Coag Negative Staph 09/19/25 18:23 Urine, Clean Catch Urine Culture - Final Culture exhibits no growth. 09/19/25 19:50 Blood Culture (Wb) - Anticubital Left Blood Culture - Preliminary No growth in 48 hours. 09/20/25 08:40 Mucosa - Nasopharyngeal Coronavirus COVID-19 PCR - Final 09/20/25 08:20 Urine, Clean Catch Legionella Antigen - Final 09/20/25 08:20 Urine, Clean Catch Streptococcus pneumoniae Antigen (M - Final Laboratory Results 09/22/25 09:53: Transferrin 126 L 09/22/25 13:13: POC Glucose 138 H 09/22/25 16:07: WBC 14.5 H, RBC 3.23 L, Hgb 7.9 L, Hct 26.4 L, MCV 81.7, MCH 24.5 L, MCHC 29.9 L D, RDW Std Deviation 56.6 H, RDW Coeff of Genesis 19.4 H, Plt Count 285, MPV 9.3, Immature Gran % (Auto) 1.500 H, Neut % (Auto) 68.5, Lymph % (Auto) 20.8, [place] % (Auto) 8.8, Eos % (Auto) 0.3, Baso % (Auto) 0.1, Absolute Neuts (auto) 9.9 H, Absolute Lymphs (auto) 3.02, Nucleated RBC % 0 09/22/25 16:17: Sodium 139, Potassium 3.5, Chloride 104, Carbon Dioxide 25.2, Anion Gap 10, BUN 25 H, Creatinine 1.05, Estim Creat Clear Calc 49.56 L, Est GFR (MDRD) Non-Af 69, BUN/Creatinine Ratio 24.0 H, Glucose 111 H, Calcium 8.1 09/23/25 06:27: WBC 11.6 H, RBC 3.36 L, Hgb 8.0 L, Hct 27.4 L, MCV 81.5, MCH 23.8 L, MCHC 29.2 L, RDW Std Deviation 56.0 H, RDW Coeff of Genesis 19.4 H, Plt Count 283, MPV 9.3, Immature Gran % (Auto) 1.600 H, Neut % (Auto) 62.5, Lymph % (Auto) 25.3, [place] % (Auto) 10.0, Eos % (Auto) 0.4, Baso % (Auto) 0.2, Absolute Neuts (auto) 7.2, Absolute Lymphs (auto) 2.92, Nucleated RBC % 0, Sodium 138, Potassium 3.3, Chloride 104, Carbon Dioxide 23.4, Anion Gap 11, BUN 21 H, Creatinine 0.99, Estim Creat Clear Calc 52.57, Est GFR (MDRD) Non-Af 74, BUN/Creatinine Ratio 21.4 H, Glucose 84, Calcium 8.0 Clinical Impression(s) from Imaging Studies Chest CTA 09/19/25 17:16 IMPRESSION: Left lower lobe homogeneous density measuring 7.4 x 3.0 cm without air bronchograms and with Hounsfield attenuation of 14, an indeterminate finding. While focal atelectasis is possible, this has an atypical appearance. This may represent a soft tissue mass and follow-up imaging or PET-CT is recommended to exclude neoplasm. No pulmonary embolism. Status post coronary artery bypass and prosthetic aortic valve replacement. Mild atherosclerosis of a normal caliber thoracic aorta. Cholelithiasis. Elevation of the left hemidiaphragm. Venous Duplex 09/19/25 17:20 IMPRESSION: No findings suspicious for DVT in the right leg. Large complex heterogeneous fluid collection in the right popliteal fossa which surrounds the popliteal vasculature at its center. This may represent a large complex popliteal Ma's cyst, but may be vascular etiology such as a large thrombosed aneurysm/pseudoaneurysm. CTA may be helpful. Reading Location: [facility] Microbiology Past 72 Hours 09/19/25 18:23 Urine, Clean Catch Urine Culture - Final Culture exhibits no growth. 09/19/25 19:50 Blood Culture (Wb) - Anticubital Left Blood Culture - Preliminary No growth in 48 hours. 09/19/25 19:58 Blood Culture (Wb) - Left Wrist Bacteria Detection (PCR) - Final Coag Negative Staph 09/19/25 19:58 Blood Culture (Wb) - Left Wrist Blood Culture - Preliminary Coag Negative Staph 09/20/25 08:40 Mucosa - Nasopharyngeal Coronavirus COVID-19 PCR - Final 09/20/25 08:20 Urine, Clean Catch Legionella Antigen - Final 09/20/25 08:20 Urine, Clean Catch Streptococcus pneumoniae Antigen (M - Final 09/19/25 22:35 Mucosa - Nasopharyngeal Respiratory Panel (PCR) - Final Laboratory Results 09/22/25 09:53: Iron 15 L, TIBC 141 L, Iron Saturation 10.6, Unsaturated IBC 126 L, Transferrin Pending, Ferritin 750 H 09/22/25 13:13: POC Glucose 138 H Medications at Discharge Home Medications tamsulosin 0.4 mg capsule 0.4 mg PO QHS urine flow 08/20/19 famotidine 40 mg tablet (Pepcid) 40 mg PO DAILY 08/10/20 citalopram 10 mg tablet 10 mg PO DAILY 02/18/21 donepezil 10 mg tablet 10 mg PO DAILY 02/18/21 quetiapine 25 mg tablet 25 mg PO BID 02/18/21 ascorbate calcium (vitamin C) 500 mg tablet 500 mg PO DAILY 01/13/22 carvedilol 3.125 mg tablet 3.125 mg PO BID #180 tabs 03/28/24 amlodipine 5 mg tablet 5 mg PO QHS #90 tabs 06/22/25 vit C 250 mg-vit E 90 mg-zinc 40 mg-copper 1 [id number] capsule (PreserVision AREDS-2) 1 tab PO BID 06/22/25 albuterol sulfate 90 mcg/actuation aerosol inhaler 2 puff inhalation Q6H PRN shortness of breath or wheezing 08/01/25 clopidogrel 75 mg tablet 75 mg PO DAILY #90 tabs 08/03/25 acetaminophen 500 mg tablet 1,000 mg (2 x 500 mg) PO Q8 #0 tabs 08/08/25 sennosides 8.6 mg-docusate sodium 50 mg tablet (Stimulant Laxative Plus) 2 tab PO BID #0 tabs 08/08/25 aspirin 81 mg tablet,delayed release (Adult Aspirin Regimen) 81 mg PO DAILY 09/19/25 atorvastatin 20 mg tablet (Lipitor) 20 mg PO QHS 09/19/25 ferrous sulfate 325 mg (65 mg iron) tablet (Feosol) 325 mg PO DAILY 09/19/25 fluticasone propionate 50 mcg/actuation nasal spray,suspension 1 spray intranasal BID 09/19/25 carboxymethylcellulose sodium 1 % eye gel in a dropperette (Refresh Celluvisc) 1 drp EACH EYE DAILY #0 ea 09/23/25 cefdinir 300 mg capsule 300 mg PO BID 4 days #8 caps 09/23/25 guaifenesin 1,200 mg tablet, extended release 12 hr (Mucus Relief ER) 1,200 mg PO BID 7 days #0 tabs 09/23/25 ipratropium 0.5 mg-albuterol 3 mg (2.5 mg base)/3 mL nebulization soln 3 ml inhalation Q6H.RT PRN sob #0 mL 09/23/25 losartan 50 mg tablet 25 mg (1/2 x 50 mg) PO DAILY #90 tabs 09/23/25 oxycodone 5 mg tablet 2.5 mg (1/2 x 5 mg) PO Q6H PRN pain (scale score 7-10) 2 days #7 tabs 09/23/25 Hospital Course Summary of Care Provided Hospital Course: Microbiology Past 72 Hours 09/19/25 19:58 Blood Culture (Wb) - Left Wrist Bacteria Detection (PCR) - Final Coag Negative Staph 09/19/25 19:58 Blood Culture (Wb) - Left Wrist Blood Culture - Preliminary Coag Negative Staph 09/19/25 18:23 Urine, Clean Catch Urine Culture - Final Culture exhibits no growth. 09/19/25 19:50 Blood Culture (Wb) - Anticubital Left Blood Culture - Preliminary No growth in 48 hours. 09/20/25 08:40 Mucosa - Nasopharyngeal Coronavirus COVID-19 PCR - Final 09/20/25 08:20 Urine, Clean Catch Legionella Antigen - Final 09/20/25 08:20 Urine, Clean Catch Streptococcus pneumoniae Antigen (M - Final Laboratory Results 09/22/25 09:53: Transferrin 126 L 09/22/25 13:13: POC Glucose 138 H 09/22/25 16:07: WBC 14.5 H, RBC 3.23 L, Hgb 7.9 L, Hct 26.4 L, MCV 81.7, MCH 24.5 L, MCHC 29.9 L D, RDW Std Deviation 56.6 H, RDW Coeff of Genesis 19.4 H, Plt Count 285, MPV 9.3, Immature Gran % (Auto) 1.500 H, Neut % (Auto) 68.5, Lymph % (Auto) 20.8, [place] % (Auto) 8.8, Eos % (Auto) 0.3, Baso % (Auto) 0.1, Absolute Neuts (auto) 9.9 H, Absolute Lymphs (auto) 3.02, Nucleated RBC % 0 09/22/25 16:17: Sodium 139, Potassium 3.5, Chloride 104, Carbon Dioxide 25.2, Anion Gap 10, BUN 25 H, Creatinine 1.05, Estim Creat Clear Calc 49.56 L, Est GFR (MDRD) Non-Af 69, BUN/Creatinine Ratio 24.0 H, Glucose 111 H, Calcium 8.1 09/23/25 06:27: WBC 11.6 H, RBC 3.36 L, Hgb 8.0 L, Hct 27.4 L, MCV 81.5, MCH 23.8 L, MCHC 29.2 L, RDW Std Deviation 56.0 H, RDW Coeff of Genesis 19.4 H, Plt Count 283, MPV 9.3, Immature Gran % (Auto) 1.600 H, Neut % (Auto) 62.5, Lymph % (Auto) 25.3, [place] % (Auto) 10.0, Eos % (Auto) 0.4, Baso % (Auto) 0.2, Absolute Neuts (auto) 7.2, Absolute Lymphs (auto) 2.92, Nucleated RBC % 0, Sodium 138, Potassium 3.3, Chloride 104, Carbon Dioxide 23.4, Anion Gap 11, BUN 21 H, Creatinine 0.99, Estim Creat Clear Calc 52.57, Est GFR (MDRD) Non-Af 74, BUN/Creatinine Ratio 21.4 H, Glucose 84, Calcium 8.0 Physical Exam Narrative Seen and examined. Complain of right lower extremity pain which is chronic for last [address] abdomen with runoff explained to the patient that there is no increase in the size of the popliteal pseudoaneurysm with hematoma. Physical exam General: Alert, Oriented x3, Cooperative. BMI 26.4 kg square HEENT: Atraumatic, PERRLA, EOMI, Normocephalic. Oral: No Gingival or Mucosal Lesions/ Ulcerations Neck: Supple, No JVD, Negative Carotid Bruits Chest wall/Lungs: Air entry diminished in bilateral lung bases. No crepitation/rhonchi. Pulsatile swelling of the right popliteal region seems vascular. Cardiovascular: Regular rate and rhythm, Normal S1,S2, systolic murmur Abdomen: Bowel Sounds Present, Soft, Non Tender, Non-Distended : No dysuria. No renal angle tenderness. No suprapubic tenderness. Extremities: Mild bilateral pedal edema, Capillary Refill Less than 3 Seconds Skin: No rashes, No breakdown Musculoskeletal: No Tenderness to Palpation of Joints or Extremities Neurological: Cranial nerves II-XII grossly intact, DTR 2+/4. No acute focal neurological deficit. Psych/Mental Status: Flat affect Weight / BMI Weight Weight: 180 lb 15.992 oz Body Mass Index (BMI) 26.7 ABG / Lab / Microbiology Data 09/23/25 06:27 09/23/25 06:27 Laboratory: Laboratory Results - last 24 hr 09/22/25 09:53: Transferrin 126 L 09/22/25 13:13: POC Glucose 138 H 09/22/25 16:07: WBC 14.5 H, RBC 3.23 L, Hgb 7.9 L, Hct 26.4 L, MCV 81.7, MCH 24.5 L, MCHC 29.9 L D, RDW Std Deviation 56.6 H, RDW Coeff of Genesis 19.4 H, Plt Count 285, MPV 9.3, Immature Gran % (Auto) 1.500 H, Neut % (Auto) 68.5, Lymph % (Auto) 20.8, [place] % (Auto) 8.8, Eos % (Auto) 0.3, Baso % (Auto) 0.1, Absolute Neuts (auto) 9.9 H, Absolute Lymphs (auto) 3.02, Nucleated RBC % 0 09/22/25 16:17: Sodium 139, Potassium 3.5, Chloride 104, Carbon Dioxide 25.2, Anion Gap 10, BUN 25 H, Creatinine 1.05, Estim Creat Clear Calc 49.56 L, Est GFR (MDRD) Non-Af 69, BUN/Creatinine Ratio 24.0 H, Glucose 111 H, Calcium 8.1 09/23/25 06:27: WBC 11.6 H, RBC 3.36 L, Hgb 8.0 L, Hct 27.4 L, MCV 81.5, MCH 23.8 L, MCHC 29.2 L, RDW Std Deviation 56.0 H, RDW Coeff of Genesis 19.4 H, Plt Count 283, MPV 9.3, Immature Gran % (Auto) 1.600 H, Neut % (Auto) 62.5, Lymph % (Auto) 25.3, [place] % (Auto) 10.0, Eos % (Auto) 0.4, Baso % (Auto) 0.2, Absolute Neuts (auto) 7.2, Absolute Lymphs (auto) 2.92, Nucleated RBC % 0, Sodium 138, Potassium 3.3, Chloride 104, Carbon Dioxide 23.4, Anion Gap 11, BUN 21 H, Creatinine 0.99, Estim Creat Clear Calc 52.57, Est GFR (MDRD) Non-Af 74, BUN/Creatinine Ratio 21.4 H, Glucose 84, Calcium 8.0 Microbiology: Microbiology 09/19/25 19:58 Blood Culture (Wb) - Left Wrist Bacteria Detection (PCR) - Final Coag Negative Staph 09/19/25 19:58 Blood Culture (Wb) - Left Wrist Blood Culture - Preliminary Coag Negative Staph 09/19/25 18:23 Urine, Clean Catch Urine Culture - Final Culture exhibits no growth. 09/19/25 19:50 Blood Culture (Wb) - Anticubital Left Blood Culture - Preliminary No growth in 48 hours. 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 Stent across the right popliteal artery with postsurgical hematoma likely present as above. There is narrowing of the popliteal artery on the right inferior to the stent likely with some collateral vascular flow. Two-vessel runoff to the right foot and one-vessel runoff to the left. Additional findings as above. [facility] Inst[facility] DC O2, CPAP, BIPAP Needs Home O2 Discharge instructions: No Meaningful Use Info Meaningful Use Meaningful Use Diagnoses (Choose all that apply): None applicable Discharge Plan Admission Admit Date/Time: 09/20/25 18:33 Attending Provider: Pedro Banegas Primary Care Provider: Husam Khan Chi Consulting Providers: Lesley Avila; Roger Sherman; Channing Mckeon Discharge Orders/Prescriptions Prescriptions: New ipratropium-albuterol 0.5 mg-3 mg(2.5 mg base)/3 mL Solution For Nebulization 3 ml inhalation Q6H.RT PRN (Reason: sob) Qty: 0 0RF carboxymethylcellulose sodium [Refresh Celluvisc] 1 % Dropperette,Gel 1 drp EACH EYE DAILY Qty: 0 0RF guaifenesin [Mucus Relief ER] 1,200 mg Tablet Extended Release 12hr 1,200 mg PO BID 7 Days Qty: 0 0RF cefdinir 300 mg capsule 300 mg PO BID 4 Days Qty: 8 0RF Continued famotidine [Pepcid] 40 mg tablet 40 mg PO DAILY citalopram 10 mg tablet 10 mg PO DAILY Patient Comments: Take 1 Tablet orally once per Day for 30 Days donepezil 10 mg tablet 10 mg PO DAILY Patient Comments: TAKE 1 TABLET BY MOUTH DAILY WITH SUPPER quetiapine 25 mg tablet 25 mg PO BID ascorbate calcium (vitamin C) 500 mg tablet 500 mg PO DAILY PreserVision AREDS-2 250-90-40-1 mg capsule 1 tab PO BID amlodipine 5 mg tablet 5 mg PO QHS Qty: 90 3RF tamsulosin 0.4 MG capsule 0.4 mg PO QHS acetaminophen 500 mg Tablet 1,000 mg PO Q8 Qty: 0 0RF Rx Instructions: Acetaminophen 1 g Q8 hourly for 1 week for pain and then every 8 hourly as needed for pain sennosides-docusate sodium [Stimulant Laxative Plus] 8.6-50 mg Tablet 2 tab PO BID Qty: 0 0RF aspirin [Adult Aspirin Regimen] 81 mg tablet,delayed release (DR/EC) 81 mg PO DAILY atorvastatin [Lipitor] 20 mg tablet 20 mg PO QHS ferrous sulfate [Feosol] 325 mg (65 mg iron) tablet 325 mg PO DAILY fluticasone propionate 50 mcg/actuation spray,suspension 1 spray INTRANASAL BID oxycodone 5 mg tablet 2.5 mg PO Q6H PRN (Reason: pain (scale score 7-10)) 2 Days Qty: 7 0RF albuterol sulfate 90 mcg/actuation HFA aerosol inhaler 2 puff INHALATION Q6H PRN (Reason: shortness of breath or wheezing) carvedilol 3.125 mg tablet 3.125 mg PO BID Qty: 180 3RF Rx Instructions: must administer with a meal/food clopidogrel 75 mg tablet 75 mg PO DAILY Qty: 90 4RF Changed losartan 50 mg tablet 25 mg PO DAILY Qty: 90 4RF Discontinued losartan 50 mg tablet 50 mg PO QDAY Referrals / Follow Up: Kahlil Soto DO [Med Staff - Active Staff, Pulmonary Medicine] - Within 1 Month Referral Note: left lower lung mass Channing Mckeon MD [Med Staff - Active Staff, Vascular Surgery] - Within 2 Weeks Husam Khan Chi, MD [Primary Care Provider, Geriatrics] Disposition Disposition (needs filled in before D/C Order can be placed): [facility] Facility Charges/Coding Visit Charges Inpatient E&M: 55901 Disch Hosp >30min
[2025-09-23] MEDS: Ensure Plus High Protein 120 ML LIQUID PO (16:18)
== END 2025-09-23 19:13 | DRG 871 ==
LOC: ED 21:28 → PCU 22:23
PROVIDERS: Internal Medicine; Admitting Provider Family Medicine; Emergency Provider Emergency Medicine; PCP Family Medicine Geriatric Medicine; Visit Provider Internal Medicine
DX: A41.9 Sepsis, unspecified organism (principal); J18.9 Pneumonia, unspecified organism; E87.20 Acidosis, unspecified; N17.9 Acute kidney failure, unspecified; D63.8 Anemia in other chronic diseases classified elsewhere; D47.2 Monoclonal gammopathy; K21.9 Gastro-esophageal reflux disease without esophagitis; F03.90 Unspecified dementia, unspecified severity, without behavioral disturbance, psychotic disturbance, mood disturbance, and anxiety; I12.9 Hypertensive chronic kidney disease with stage 1 through stage 4 chronic kidney disease, or unspecified chronic kidney disease; I73.9 Peripheral vascular disease, unspecified; F32.A Depression, unspecified; Z95.3 Presence of xenogenic heart valve; I48.0 Paroxysmal atrial fibrillation; D50.9 Iron deficiency anemia, unspecified; E78.5 Hyperlipidemia, unspecified; I25.10 Atherosclerotic heart disease of native coronary artery without angina pectoris; K29.50 Unspecified chronic gastritis without bleeding; K22.70 Barrett's esophagus without dysplasia; N18.2 Chronic kidney disease, stage 2 (mild); F41.9 Anxiety disorder, unspecified; J30.9 Allergic rhinitis, unspecified; N13.9 Obstructive and reflux uropathy, unspecified; N40.0 Benign prostatic hyperplasia without lower urinary tract symptoms; R91.8 Other nonspecific abnormal finding of lung field; Z79.51 Long term (current) use of inhaled steroids; Z79.899 Other long term (current) drug therapy; Z79.82 Long term (current) use of aspirin; Z87.891 Personal history of nicotine dependence; Z95.2 Presence of prosthetic heart valve; Z95.1 Presence of aortocoronary bypass graft
CPT/HCPCS: 36415; 36600; 71275; 75635; 80048; 80053; 81001; 82728; 82803; 82962; 83540; 83550; 83605; 83735; 83880; 84100; 84145; 84466; 85025; 85027; 87040; 87086; 87149; 87449; 87633; 87635; 93005; 93926; 93971; 94640; 94668; 97116; 97162; 97167; 97530; 97535; 97802; 99285; P9612; Q9967; A4216; J0696

== ENCOUNTER → 2025-09-25 | Outpatient (REF) | payer MEDICARE, OTHER, SELFPAY ==
[2025-09-25 09:44] LABS: Hematocrit 29.7 % (40-54); Hemoglobin 8.9 g/dL (13.0-16.5); Mean Corp Hgb Conc 30.0 g/dL (32-36); Mean Corpuscular Volume 85.3 fL (80-94); Mean Platelet Vol. 9.0 fl (6.2-12.0); POSITIVE MORPHOLOGY YES; Platelet Count 292 K/mm3 (150-450); RBC Distribution Width CV 20.9 % (11.6-14.6); RBC Distribution Width SD 59.3 fl (35.1-43.9); Red Blood Count 3.48 M/mm3 (4.6-6.2); White Blood Count 27.9 K/mm3 (4.4-11.0)
[2025-09-25 09:46] LABS: Scan Indicated on CBC? Y/N YES- FLAGS NOTED
[2025-09-25 10:19] LABS: Differential Comment SCANNED
== END ==
LOC: OLS.WCC 08:15
PROVIDERS: PCP Family Medicine Geriatric Medicine; Visit Provider Family Medicine
DX: I48.91 Unspecified atrial fibrillation (principal); E78.5 Hyperlipidemia, unspecified; I44.7 Left bundle-branch block, unspecified; I35.0 Nonrheumatic aortic (valve) stenosis; I34.81 Nonrheumatic mitral (valve) annulus calcification; E55.9 Vitamin D deficiency, unspecified
CPT/HCPCS: 36415; 85027

== ENCOUNTER → 2025-09-27 01:30 | Outpatient (REF) | payer MEDICARE, OTHER, SELFPAY ==
--- OUTSIDE RECORDS SUMMARY | 2025-09-27 07:43 | XMS RPT_ITS | CCD ---
Author Organization [facility] Care Team Providers Care Skin Care Specialist Name Role Phone VALDEZ LANDIS Referring Unavailable [...] Physician Dr. Ilana Medrano DO Attending Physician Dr. Ilana Medrano DO Emergency Department Physi patricia Mike ZAMARRIPA, Dr. [...] Attending Physician Venecia Qureshi Attending Physician Silvino CLIENT SUPPORT ANALYST-CSerene Attending Physician Silvino CLIENT SUPPORT ANALYST-C, Serene Referring Provider Silvino CLIENT SUPPORT ANALYSTSerene Attending Unavailable [place] CLIENT SUPPORT ANALYST, Serene Referring Unavailable Bill, Husam Chi Primary Care Unavailable Valdez Angel Attending Unavailable Bill, Husam Chi Primary Care Unavailable OleTrixie Vee Attending Unavailabl e Bill, Hsuam Chi Primary Care Unavailable Venecia Villar Attending Unavailable Venecia Villar Referring Unavailable Bill, Husam Chi Primary Care Unavailable Valdez Angel Attending Unavailable Bill, Husam Chi Primary Care Unavailable OleghTrixie Larson Attending Unavailabl e Bill, Husam Chi Primary Care Unavailable Bill, Husam Chi Attending Unavailable Bill, Husam Chi Referring Unavailable Bill, Husam Chi Primary Care Unavailable [place], Channing Attending Unavailable [place], Channing Referring Unavailable Bill, Husam Chi Primary Care Unavailable [facility], Pedro Attending Unavailable Mosteller, Morgan Consulting Unavailable Mosteller, Morgan Admitting Unavailable Bill, Husam Chi Primary Care Unavailable AakashtsonisYazanJim F Consulting Unavailable Bill, Husam Chi Primary Care Unavailable Ilana Medrano Attending Unavailable Bill, Husam Chi Attending Unavailable Bill, Husam Chi Primary Care Unavailable Oleghe OLS, Efewongbe Attending Unavailabl e Bill, Husam Chi Primary Care Unavailable Oleghe OLS, Efewongbe Attending Unavailabl e Bill, Husam Chi Primary Care Unavailable Serene Palacios Attending Unavailable Bill, Husam Chi Primary Care Unavailable Oleghe OLS, Efewongbe Attending Unavailabl e Bill, Husam Chi Primary Care Unavailable Geoffrey Garza Attending Unavailable Isckarus, Mansour Referring Unavailable Bill, Husam Chi Primary Care Unavailable Castillo ARLEEN Valdez K Attending Unavailable Bill, Husam Chi Primary Care Unavailable Castillo ARLEEN Valdez K Referring Unavailable Bill, Husam Chi Attending Unavailable Bill, Husam Chi Primary Care Unavailable Mosteller, Morgan Consulting Unavailable Bill, Husam Chi Primary Care Unavailable Mosteller, Morgan Attending Unavailable Mosteller, Morgan Admitting Unavailable Isckarus Mansour Attending Unavailable Bill, Husam Chi Referring Unavailable Bill, Husam Chi Primary Care Unavailable La Brennan Attending Unavail able Bill, Husam Chi Referring Unavailable Bill, Husam Chi Primary Care Unavailable Venecia Villar Attending Unavailable Bill, Husam Chi Referring Unavailable Bill, Husam Chi Primary Care Unavailable Bill, Husam Chi Primary Care Unavailable White, Lesley L Admitting Unavailable White, Lesley L Consulting Unavailable [facility], Pedro Attending Unavailable Roger Sherman Consulting Unavailable Mike, Channing Consulting Unavailable Mosteller, Morgan Consulting Unavailable Bill, Husam Chi Primary Care Unavailable DianneoniYazan fontanaJim F Attending Unavailable Mosteller, Morgan Admitting Unavailable Kotsonis, Jim F Consulting Unavailable La Brennan Attending Unavail able La Brennan Referring Unavail able Bill, Husam Chi Primary Care Unavailable Oleghe, Efewongbe Consulting Unavailable Bassam, Pedro Attending Unavailable Bassam, Pedro Consulting Unavailable White, Lesley L Admitting Unavailable White, Lesley L Attending Unavailable Bill, Husam Chi Primary Care Unavailable White, Lesley L Consulting Unavailable White, Lesley L Admitting Unavailable Roger Sherman Attending Unavailable Bill, Husam Chi Primary Care Unavailable White, Lesley L Consulting Unavailable [place]oe, Roger Consulting Unavailable White, Lesley L Admitting Unavailable Roger Sherman Attending Unavailable Bill, Husam Chi Primary Care Unavailable White, Lesley L Consulting Unavailable KittoRoger acevedo Consulting Unavailable Bassam, Pedro Attending Unavailable [place], Channing Consulting Unavailable Bassam, Pedro Consulting Unavailable [place], Channing Attending Unavailable Bill, Husam Chi Primary Care Unavailable Bill, Husam Chi Referring Unavailable Mike, Channing Attending Unavailable Bill, Husam Chi Primary Care Unavailable Villar, Venecia Referring Unavailable [place], Channing Consulting Unavailable Bill, Husam Chi Primary Care Unavailable Mike, Channing Referring Unavailable Mike, Channing Attending Unavailable Mike, Channing Attending Unavailable Bill, Husam Chi Primary Care Unavailable Bill, Husam Chi Referring Unavailable Kenan Santamaria Attending Unavailable Bill, Husam Chi Primary Care Unavailable Allergies Allergy Classification Reported Allergen(s) Allergy Type Date of Onset Reaction(s) Facility (20 sources) atorvastatin Drug Allergy 01-14-2022 Myalgias [facility] (1 source) atorvastatin Drug Allergy 09-19-2025 [facility] Repository Medications Current Medications Medication Drug Class(es) [...] 18, 2019 3:19pm Start: 07-13-2019 End: 07-28-2019 [id number] 200 actuat albuter ol 0.09 mg/actuat metered [...] 02-18-2021 docusate sodium 50 mg / sennosides, custodial 8.6 mg oral tablet (20 sources) Start: [...] 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 Start: 01-20-2019 End: 02-01-2019 QUEtiapine 25 mg oral tablet (20 sources) Atypical Antipsychotic Start: 02-18-2021 Vit C,J-Um-Ntpyv-Lutei n-Zeaxan (Preservision Areds-2) 250-90-40-1 mg capsule (8 sources) Start: 06-22-2025 take 2 capsules by mouth twice daily Vit C,R-Ap-Irhec-L utein-Zeaxan (Preservision Areds-2) 250-90-40-1 mg capsule Active [...] tablet Discontinued 5 mg PO DAILY January 27, 2020 3:06pm August 21, 2020 [...] 20 mg/ml oral solution (20 sources) Uncompetitive C-wwjpub-N-aspartate Receptor Antagonist, Sigma-1 Agonist Start: 07-28-2019 End: [...] 25 mg PO TWICE A DAY 60 11 October 26, 2019 1:00am May 28, 2020 4:26pm Start: 10-17-2019 End: 10-26-2019 Start: 09-01-2019 End: 10-17-2019 lactobacillus acidophilus 50 [id number] unt oral capsule (20 sources) Start: 07-13-2019 [...] atrial fibrillation; Translations: [Paroxysmal atrial fibrillation] Onset: 9 Chronic Comment on above: Status post a 35 mm AtriCure clip on 07/04/[address] [facility] [address] Rivers; Chronic kidney disease (2 sources) Chronic kidney disease, stage 3 (moderate); Translations: [Chronic kidney disease, stage 3 (moderate)] Onset: Chronic Coma; stupor; and brain damage (6 sources) Coma scale, best motor response, obeys commands, at hospital admission; Translations: [Coma scale, eyes open, spontaneous, at hospital admission] Onset: Conduction disorders (20 sources) Left bundle-branch block, [...] hematuria). per Dr. 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 Rivers; Deficiency and [...] hematuria). per Dr. Wayne Rivers 07/04/19 @ [facility] [address] [facility] cta pericardial prosthesis per Dr. Wayne Rivers 07/04/19 @ [facility] Severe per echo 12/06 @ [facility] Mild per echo 9 done @ [facility] by Dr. José Miguel Gutierrez. No regurgitation. [...] 08-17-2019 Episodic Comment on above: Repaired at [facility] 12/04/18 Malaise and fatigue (20 sources) [...] the circulatory system] 08-24-2025 Episodic Other aftercare (1 source) Encounter for surgical aftercare following surgery on [...] Onset: 9 Chronic Other lower respiratory disease (2 sources) Other nonspecific abnormal finding of lung field; Translations: [Other nonspecific abnormal finding of lung field] Onset: 5 Episodic Other lower respiratory disease (1 source) Other specified respiratory disorders; Translations: [Other specified respiratory disorders] Onset: 5 Episodic Other nervous system disorders (2 sources) Metabolic encephalopathy; Translations: [Metabolic encephalopathy] Onset: 9 Chronic Other nervous system disorders (20 sources) Metabolic encephalopathy; Translations: [Metabolic encephalopathy] 08-17-2019 Chronic Other nervous system disorders (2 sources) Other chronic pain; Translations: [Other chronic pain] Onset: 5 Chronic Other non-traumatic joint disorders (11 sources) [...] QT interval; Translations: [Abnormal electrocardiogram [ECG] [EKG]] Onset: 5 07-13-2019 Episodic Other upper respiratory disease (20 [...] edema; Translations: [Localized edema] Onset: 5 Episodic Unclassified (2 sources) Acidosis, unspecified; Translations: [Acidosis, unspecified] Onset: 5 Past or Other Problems Problem Classification Problem Date Documented Date Episodic/Chronic Abdominal hernia (20 sources) Other and unspecified ventral hernia with obstruction, without gangrene; Translations: [Umbilical hernia with obstruction, without gangrene] Onset: 12-04-2018 07-13-2019 Episodic Comment on above: [facility] Coronary atherosclerosis and other heart disease (1 [...] severe per [facility] 03/02/19 per [facility] @ [facility] Results Test Name Value Interpretation Reference Range Facility CBC-Complete Blood Cnt No Di ffon 09-25-2025 Erythrocyte distribution width (RBC) [Ratio] 20.9 % High 11.6-14.6 [facility] Comment on above: Performed By: #### L 100.0500, L100.4500 ####[facility] [address] [place], [address] Hematocrit (Bld) [Volume fraction] 29.7 % Low 40-54 [facility] Comment on above: Performed By: #### L 100.0500, L100.4500 ####[facility] [address] [place], [address] Hemoglobin (Bld) [Mass/Vol] 8.9 g/dL Low 13.0-16.5 [facility] Comment on above: Performed By: #### L 100.0500, L100.4500 ####[facility] [address] [place], [address] MCH (RBC) [Entitic mass] 25.6 pg Low 27.0-32.0 [facility] Comment on above: Performed By: #### L 100.0500, L100.4500 ####[facility] [address] [place], [address] MCHC (RBC) [Mass/Vol] 30.0 g/dL Low 32-36 [facility] Comment on above: Performed By: #### L 100.0500, L100.4500 ####[facility] [address] [place], [address] MCV (RBC) [Entitic vol] 85.3 fL Normal 80-94 [facility] Comment on above: Performed By: #### L 100.0500, L100.4500 ####[facility] [address] [place], [address] Platelet mean volume (Bld) [Entitic vol] 9.0 fL Normal 6.2-12.0 [facility] Comment on above: Performed By: #### L 100.0500, L100.4500 ####[facility] [address] [place], [address] Platelets (Bld) [#/Vol] 292 10*3/uL Normal 150-450 [facility] Comment on above: Performed By: #### L 100.0500, L100.4500 ####[facility] [address] [place], [address] RBC (Bld) [#/Vol] 3.48 10*6/uL Low 4.6-6.2 [facility] Comment on above: Performed By: #### L 100.0500, L100.4500 ####[facility] [address] [place], [address] RDW SD 59.3 fl High 35.1-43.9 [facility] Comment on above: Performed By: #### L 100.0500, L100.4500 ####[facility] [address] [place], [address] WBC (Bld) [#/Vol] 27.9 10*3/uL High 4.4-11.0 [facility] Comment on above: Performed By: #### L 100.0500, L100.4500 ####[facility] [address] [place], [address] Differential Commenton 09-25 SMEAR COMMENT SCANNED Normal [facility] Comment on above: Result Comment: 2+ A NISOCYTOSIS Performed By: #### L 100.0500, L100.4500 ####[facility] [address] [place], [address] Basic Metabolic Profile (BMP )on 09-24-2025 BUN Normal 4-19 [facility] Comment on above: Result Comment: Canc elled via OM: Order cancelled - Patient discharged Performed By: #### L 500.2500 ####[facility] [address] [place], [address] BUN/CRE Normal 10-20 [facility] Comment on above: Result Comment: Canc elled via OM: Order cancelled - Patient discharged Performed By: #### L 500.2500 ####[facility] [address] [place], [address] Calcium Normal 7.6-11.0 [facility] Comment on above: Result Comment: Canc elled via OM: Order cancelled - Patient discharged Performed By: #### L 500.2500 ####[facility] [address] [place], [address] CL Normal 98-108 [facility] Comment on above: Result Comment: Canc elled via OM: Order cancelled - Patient discharged Performed By: #### L 500.2500 ####[facility] [address] [place], [address] CO2 Normal 21.0-32.0 [facility] Comment on above: Result Comment: Canc elled via OM: Order cancelled - Patient discharged Performed By: #### L 500.2500 ####[facility] [address] [place], [address] CREAT,SERUM Normal 0.70-1.20 [facility] Comment on above: Result Comment: Canc elled via OM: Order cancelled - Patient discharged Performed By: #### L 500.2500 ####[facility] [address] [place], [address] eGFR Normal >60 [facility] Comment on above: Result Comment: Canc elled via OM: Order cancelled - Patient discharged Performed By: #### L 500.2500 ####[facility] [address] [place], [address] GAP Normal 5-15 [facility] Comment on above: Result Comment: Canc elled via OM: Order cancelled - Patient discharged Performed By: #### L 500.2500 ####[facility] [address] [place], [address] GLU Normal 70-99 [facility] Comment on above: Result Comment: Canc elled via OM: Order cancelled - Patient discharged Performed By: #### L 500.2500 ####[facility] [address] [place], [address] Potassium Normal 3.3-5.1 [facility] Comment on above: Result Comment: Canc elled via OM: Order cancelled - Patient discharged Performed By: #### L 500.2500 ####[facility] [address] [place], [address] Basic Metabolic Profile (BMP) Normal 133-145 [facility] Comment on above: Result Comment: Canc elled via OM: Order cancelled - Patient discharged Performed By: #### L 500.2500 ####[facility] [address] [place], [address] CBC W/Diff, Automatedon 11-0 -2024 Absolute Neut Normal 2.0-7.7 [facility] Comment on above: Result Comment: Canc elled via OM: Order cancelled - Patient discharged Performed By: #### L 100.0100 ####[facility] [address] [place], [address] HCT Normal 40-54 [facility] Comment on above: Result Comment: Canc elled via OM: Order cancelled - Patient discharged Performed By: #### L 100.0100 ####[facility] [address] [place], [address] HGB Normal 13.0-16.5 [facility] Comment on above: Result Comment: Canc elled via OM: Order cancelled - Patient discharged Performed By: #### L 100.0100 ####[facility] [address] [place], [address] MCH Normal 27.0-32.0 [facility] Comment on above: Result Comment: Canc elled via OM: Order cancelled - Patient discharged Performed By: #### L 100.0100 ####[facility] [address] [place], [address] MCHC Normal 32-36 [facility] Comment on above: Result Comment: Canc elled via OM: Order cancelled - Patient discharged Performed By: #### L 100.0100 ####[facility] [address] [place], [address] MCV Normal 80-94 [facility] Comment on above: Result Comment: Canc elled via OM: Order cancelled - Patient discharged Performed By: #### L 100.0100 ####[facility] [address] [place], [address] NEUT% Normal 47-70 [facility] Comment on above: Result Comment: Canc elled via OM: Order cancelled - Patient discharged Performed By: #### L 100.0100 ####[facility] [address] [place], [address] PLT Normal 150-450 [facility] Comment on above: Result Comment: Canc elled via OM: Order cancelled - Patient discharged Performed By: #### L 100.0100 ####[facility] [address] [place], [address] RBC Normal 4.6-6.2 [facility] Comment on above: Result Comment: Canc elled via OM: Order cancelled - Patient discharged Performed By: #### L 100.0100 ####[facility] [address] [place], [address] RDW CV Normal 11.6-14.6 [facility] Comment on above: Result Comment: Canc elled via OM: Order cancelled - Patient discharged Performed By: #### L 100.0100 ####[facility] [address] [place], [address] RDW SD Normal 35.1-43.9 [facility] Comment on above: Result Comment: Canc elled via OM: Order cancelled - Patient discharged Performed By: #### L 100.0100 ####[facility] [address] [place], [address] WBC Normal 4.4-11.0 [facility] Comment on above: Result Comment: Canc elled via OM: Order cancelled - Patient discharged Performed By: #### L 100.0100 ####[facility] [address] [place], [address] Basic Metabolic Profile (BMP )on 09-23-2025 BUN/CRE 21.4 RATIO High 10-20 [facility] Comment on above: Performed By: #### L 500.2500 ####[facility] [address] [place], [address] Calcium [Mass/Vol] 8.0 mg/dL Normal 7.6-11.0 [facility] Comment on above: Performed By: #### L 500.2500 ####[facility] [address] [place], [address] Chloride [Moles/Vol] 104 mmol/L Normal 98-108 [facility] Comment on above: Performed By: #### L 500.2500 ####[facility] [address] [place], [address] CO2 [Moles/Vol] 23.4 mmol/L Normal 21.0-32.0 [facility] Comment on above: Performed By: #### L 500.2500 ####[facility] [address] [place], [address] Creatinine [Mass/Vol] 0.99 mg/dL Normal 0.70-1.20 [facility] Comment on above: Performed By: #### L 500.2500 ####[facility] [address] [place], [address] ECRCL 52.57 ml/min Normal 50-250 [facility] Comment on above: Performed By: #### L 500.2500 ####[facility] [address] [place], [address] GAP 11 Normal 5-15 [facility] Comment on above: Performed By: #### L 500.2500 ####[facility] [address] [place], [address] GFR/1.73 sq M.predicted among non-blacks MDRD (S/P/Bld) [Vol rate/Area] 74 mL/min/{1.73_m2} Normal >60 [facility] Comment on above: Result Comment: mL/m in/1.73m2 CKD-EPI Creatinine Equation (2020) Performed By: #### L 500.2500 ####[facility] [address] [place], [address] Glucose [Mass/Vol] 84 mg/dL Normal 70-99 [facility] Comment on above: Performed By: #### L 500.2500 ####[facility] [address] [place], [address] Potassium [Moles/Vol] 3.3 mmol/L Normal 3.3-5.1 [facility] Comment on above: Performed By: #### L 500.2500 ####[facility] [address] [place], [address] Sodium [Moles/Vol] 138 mmol/L Normal 133-145 [facility] Comment on above: Performed By: #### L 500.2500 ####[facility] [address] [place], [address] Urea nitrogen [Mass/Vol] 21 mg/dL High 4-19 [facility] Comment on above: Performed By: #### L 500.2500 ####[facility] [address] [place], [address] CBC W/Diff, Automatedon 11-0 -2024 Absolute Lymph 2.92 X10 3/uL Normal 0.83-4.51 [facility] Comment on above: Performed By: #### L 100.0100 ####[facility] [address] [place], [address] Absolute Neut 7.2 X10 3/uL Normal 2.0-7.7 [facility] Comment on above: Performed By: #### L 100.0100 ####[facility] [address] [place], [address] Basophils/100 WBC (Bld) 0.2 % Normal 0-1 [facility] Comment on above: Performed By: #### L 100.0100 ####[facility] [address] [place], [address] Eosinophils/100 WBC (Bld) 0.4 % Normal 0-5 [facility] Comment on above: Performed By: #### L 100.0100 ####[facility] [address] [place], [address] Erythrocyte distribution width (RBC) [Ratio] 19.4 % High 11.6-14.6 [facility] Comment on above: Performed By: #### L 100.0100 ####[facility] [address] [place], [address] Hematocrit (Bld) [Volume fraction] 27.4 % Low 40-54 [facility] Comment on above: Performed By: #### L 100.0100 ####[facility] [address] [place], [address] Hemoglobin (Bld) [Mass/Vol] 8.0 g/dL Low 13.0-16.5 [facility] Comment on above: Performed By: #### L 100.0100 ####[facility] [address] [place], [address] IG% 1.600 High 0.0-0.9 [facility] Comment on above: Result Comment: IG% - Immature Granulocytes (promyelocytes, myelocytes andmetamyelocytes) > 1% indicates that a LEFT SHIFT is Present. Performed By: #### L 100.0100 ####[facility] [address] [place], [address] Lymphocytes/100 WBC (Bld) 25.3 % Normal 19-41 [facility] Comment on above: Performed By: #### L 100.0100 ####[facility] [address] [place], [address] MCH (RBC) [Entitic mass] 23.8 pg Low 27.0-32.0 [facility] Comment on above: Performed By: #### L 100.0100 ####[facility] [address] [place], [address] MCHC (RBC) [Mass/Vol] 29.2 g/dL Low 32-36 [facility] Comment on above: Performed By: #### L 100.0100 ####[facility] [address] [place], [address] MCV (RBC) [Entitic vol] 81.5 fL Normal 80-94 [facility] Comment on above: Performed By: #### L 100.0100 ####[facility] [address] [place], [address] Monocytes/100 WBC (Bld) 10.0 % Normal 0-10 [facility] Comment on above: Performed By: #### L 100.0100 ####[facility] [address] [place], [address] Neutrophils/100 WBC (Bld) 62.5 % Normal 47-70 [facility] Comment on above: Performed By: #### L 100.0100 ####[facility] [facility] [address] [place], [address] Nucleated RBC (Bld) [#/Vol] 0 10*3/uL Normal 0-5 [facility] Comment on above: Performed By: #### L 100.0100 ####[facility] [address] [place], [address] Platelet mean volume (Bld) [Entitic vol] 9.3 fL Normal 6.2-12.0 [facility] Comment on above: Performed By: #### L 100.0100 ####[facility] [address] [place], [address] Platelets (Bld) [#/Vol] 283 10*3/uL Normal 150-450 [facility] Comment on above: Performed By: #### L 100.0100 ####[facility] [address] [place], [address] RBC (Bld) [#/Vol] 3.36 10*6/uL Low 4.6-6.2 [facility] Comment on above: Performed By: #### L 100.0100 ####[facility] [address] [place], [address] RDW SD 56.0 fl High 35.1-43.9 [facility] Comment on above: Performed By: #### L 100.0100 ####[facility] [address] [place], [address] WBC (Bld) [#/Vol] 11.6 10*3/uL High 4.4-11.0 [facility] Comment on above: Performed By: #### L 100.0100 ####[facility] [address] [place], [address] Culture, Blood (WB)on 2024 CUB Normal [facility] Comment on above: Performed By: #### M 200.1000, M100.636 ####[facility] [address] [place], [address] Transferrinon 09-23-2025 Transferrin [Mass/Vol] 126 mg/dL Low 149-313 [facility] Comment on above: Result Comment: Perf ormed at: - [facility] [address] [id number] Director: Alcides Alicea PhD, Phone: [phone] Performed By: #### L 0810.0521, K770.0333, B902.6870 ####[facility] [address] [place], [address] Basic Metabolic Profile (BMP )on 09-22-2025 BUN/CRE 24.0 RATIO High 10-20 [facility] Comment on above: Performed By: #### L 500.2500, L100.0100 ####[facility] [address] [place], [address] Calcium [Mass/Vol] 8.1 mg/dL Normal 7.6-11.0 [facility] Comment on above: Performed By: #### L 500.2500, L100.0100 ####[facility] [address] [place], [address] Chloride [Moles/Vol] 104 mmol/L Normal 98-108 [facility] Comment on above: Performed By: #### L 500.2500, L100.0100 ####[facility] [address] [place], [address] CO2 [Moles/Vol] 25.2 mmol/L Normal 21.0-32.0 [facility] Comment on above: Performed By: #### L 500.2500, L100.0100 ####[facility] [address] [place], [address] Creatinine [Mass/Vol] 1.05 mg/dL Normal 0.70-1.20 [facility] Comment on above: Performed By: #### L 500.2500, L100.0100 ####[facility] [address] [place], [address] ECRCL 49.56 ml/min Low 50-250 [facility] Comment on above: Performed By: #### L 500.2500, L100.0100 ####[facility] [address] [place], [address] GAP 10 Normal 5-15 [facility] Comment on above: Performed By: #### L 500.2500, L100.0100 ####[facility] [address] [place], [address] GFR/1.73 sq M.predicted among non-blacks MDRD (S/P/Bld) [Vol rate/Area] 69 mL/min/{1.73_m2} Normal >60 [facility] Comment on above: Result Comment: mL/m in/1.73m2 CKD-EPI Creatinine Equation (2020) Performed By: #### L 500.2500, L100.0100 ####[facility] [address] [place], [address] Glucose [Mass/Vol] 111 mg/dL High 70-99 [facility] Comment on above: Performed By: #### L 500.2500, L100.0100 ####[facility] [address] [place], [address] Potassium [Moles/Vol] 3.5 mmol/L Normal 3.3-5.1 [facility] Comment on above: Performed By: #### L 500.2500, L100.0100 ####[facility] [address] [place], [address] Sodium [Moles/Vol] 139 mmol/L Normal 133-145 [facility] Comment on above: Performed By: #### L 500.2500, L100.0100 ####[facility] [address] [place], [address] Urea nitrogen [Mass/Vol] 25 mg/dL High 4-19 [facility] Comment on above: Performed By: #### L 500.2500, L100.0100 ####[facility] [address] [place], [address] Bedside Glucoseon 09-22-2025 FINGERSTICK GLU 138 mg/dL High 74-106 [facility] Comment on above: Result Comment: GREG ARGELIA OF PATIENT CARE PER NURSING PROTOCOL Performed By: #### L 501.080 ####[facility] [address] [place], [address] CBC W/Diff, Automatedon 10-3 -2024 Absolute Lymph 3.02 X10 3/uL Normal 0.83-4.51 [facility] Comment on above: Performed By: #### L 500.2500, L100.0100 ####[facility] [address] [place], [address] Absolute Neut 9.9 X10 3/uL High 2.0-7.7 [facility] Comment on above: Performed By: #### L 500.2500, L100.0100 ####[facility] [address] [place], [address] Basophils/100 WBC (Bld) 0.1 % Normal 0-1 [facility] Comment on above: Performed By: #### L 500.2500, L100.0100 ####[facility] [address] [place], [address] Eosinophils/100 WBC (Bld) 0.3 % Normal 0-5 [facility] Comment on above: Performed By: #### L 500.2500, L100.0100 ####[facility] [address] [place], [address] Erythrocyte distribution width (RBC) [Ratio] 19.4 % High 11.6-14.6 [facility] Comment on above: Performed By: #### L 500.2500, L100.0100 ####[facility] [address] [place], [address] Hematocrit (Bld) [Volume fraction] 26.4 % Low 40-54 [facility] Comment on above: Performed By: #### L 500.2500, L100.0100 ####[facility] [address] [place], [address] Hemoglobin (Bld) [Mass/Vol] 7.9 g/dL Low 13.0-16.5 [facility] Comment on above: Performed By: #### L 500.2500, L100.0100 ####[facility] [address] [place], [address] IG% 1.500 High 0.0-0.9 [facility] Comment on above: Result Comment: IG% - Immature Granulocytes (promyelocytes, myelocytes andmetamyelocytes) > 1% indicates that a LEFT SHIFT is Present. Performed By: #### L 500.2500, L100.0100 ####[facility] [address] [place], [address] Lymphocytes/100 WBC (Bld) 20.8 % Normal 19-41 [facility] Comment on above: Performed By: #### L 500.2500, L100.0100 ####[facility] [address] [place], [address] MCH (RBC) [Entitic mass] 24.5 pg Low 27.0-32.0 [facility] Comment on above: Performed By: #### L 500.2500, L100.0100 ####[facility] [address] [place], [address] MCHC (RBC) [Mass/Vol] 29.9 g/dL Low 32-36 [facility] Comment on above: Performed By: #### L 500.2500, L100.0100 ####[facility] [address] [place], [address] MCV (RBC) [Entitic vol] 81.7 fL Normal 80-94 [facility] Comment on above: Performed By: #### L 500.2500, L100.0100 ####[facility] [address] [place], [address] Monocytes/100 WBC (Bld) 8.8 % Normal 0-10 [facility] Comment on above: Performed By: #### L 500.2500, L100.0100 ####[facility] [address] [place], [address] Neutrophils/100 WBC (Bld) 68.5 % Normal 47-70 [facility] Comment on above: Performed By: #### L 500.2500, L100.0100 ####[facility] [address] [place], [address] Nucleated RBC (Bld) [#/Vol] 0 10*3/uL Normal 0-5 [facility] Comment on above: Performed By: #### L 500.2500, L100.0100 ####[facility] [address] [place], [address] Platelet mean volume (Bld) [Entitic vol] 9.3 fL Normal 6.2-12.0 [facility] Comment on above: Performed By: #### L 500.2500, L100.0100 ####[facility] [address] [place], [address] Platelets (Bld) [#/Vol] 285 10*3/uL Normal 150-450 [facility] Comment on above: Performed By: #### L 500.2500, L100.0100 ####[facility] [address] [place], [address] RBC (Bld) [#/Vol] 3.23 10*6/uL Low 4.6-6.2 [facility] Comment on above: Performed By: #### L 500.2500, L100.0100 ####[facility] [address] [place], [address] RDW SD 56.6 fl High 35.1-43.9 [facility] Comment on above: Performed By: #### L 500.2500, L100.0100 ####[facility] [address] [place], [address] WBC (Bld) [#/Vol] 14.5 10*3/uL High 4.4-11.0 [facility] Comment on above: Performed By: #### L 500.2500, L100.0100 ####[facility] [address] [place], [address] CTA Abd w/Runoff W/WO Contra ston 09-22-2025 CTA Abd w/Runoff W/WO Contrast Normal [facility] Ferritinon 09-22-2025 Ferritin [Mass/Vol] 750 ng/mL High 37-417 [facility] Comment on above: Performed By: #### L 3400.3800, L503.6550, L503.6030 ####[facility] [address] [place], [address] Iron+Iron Binding Capacityon 09-22-2025 TIBC 141 ug/dL Low 250-450 [facility] Comment on above: Performed By: #### L 3400.3800, L503.6550, L503.6030 ####[facility] [address] [place], [address] Basic Metabolic Profile (BMP )on 09-21-2025 BUN/CRE 25.3 RATIO High 10-20 [facility] Comment on above: Performed By: #### L 501.2300, L100.0100, L500.2500, L501.5200 ####[facility] [address] [place], [address] Calcium [Mass/Vol] 8.1 mg/dL Normal 7.6-11.0 [facility] Comment on above: Performed By: #### L 501.2300, L100.0100, L500.2500, L501.5200 ####[facility] [address] [place], [address] Chloride [Moles/Vol] 104 mmol/L Normal 98-108 [facility] Comment on above: Performed By: #### L 501.2300, L100.0100, L500.2500, L501.5200 ####[facility] [address] [place], [address] CO2 [Moles/Vol] 26.5 mmol/L Normal 21.0-32.0 [facility] Comment on above: Performed By: #### L 501.2300, L100.0100, L500.2500, L501.5200 ####[facility] [address] [place], [address] Creatinine [Mass/Vol] 1.10 mg/dL Normal 0.70-1.20 [facility] Comment on above: Performed By: #### L 501.2300, L100.0100, L500.2500, L501.5200 ####[facility] [address] [place], [address] ECRCL 47.31 ml/min Low 50-250 [facility] Comment on above: Performed By: #### L 501.2300, L100.0100, L500.2500, L501.5200 ####[facility] [address] [place], [address] GAP 10 Normal 5-15 [facility] Comment on above: Performed By: #### L 501.2300, L100.0100, L500.2500, L501.5200 ####[facility] [address] [place], [address] GFR/1.73 sq M.predicted among non-blacks MDRD (S/P/Bld) [Vol rate/Area] 65 mL/min/{1.73_m2} Normal >60 [facility] Comment on above: Result Comment: mL/m in/1.73m2 CKD-EPI Creatinine Equation (2020) Performed By: #### L 501.2300, L100.0100, L500.2500, L501.5200 ####[facility] [address] [place], [address] Glucose [Mass/Vol] 88 mg/dL Normal 70-99 [facility] Comment on above: Performed By: #### L 501.2300, L100.0100, L500.2500, L501.5200 ####[facility] [address] [place], [address] Potassium [Moles/Vol] 3.8 mmol/L Normal 3.3-5.1 [facility] Comment on above: Performed By: #### L 501.2300, L100.0100, L500.2500, L501.5200 ####[facility] [address] [place], [address] Sodium [Moles/Vol] 140 mmol/L Normal 133-145 [facility] Comment on above: Performed By: #### L 501.2300, L100.0100, L500.2500, L501.5200 ####[facility] [address] [place], [address] Urea nitrogen [Mass/Vol] 28 mg/dL High 4-19 [facility] Comment on above: Performed By: #### L 501.2300, L100.0100, L500.2500, L501.5200 ####[facility] [address] [place], [address] CBC W/Diff, Automatedon 10-3 0-5 Absolute Lymph 3.08 X10 3/uL Normal 0.83-4.51 [facility] Comment on above: Performed By: #### L 501.2300, L100.0100, L500.2500, L501.5200 ####[facility] [address] [place], [address] Absolute Neut 8.0 X10 3/uL High 2.0-7.7 [facility] Comment on above: Performed By: #### L 501.2300, L100.0100, L500.2500, L501.5200 ####[facility] [address] [place], [address] Basophils/100 WBC (Bld) 0.2 % Normal 0-1 [facility] Comment on above: Performed By: #### L 501.2300, L100.0100, L500.2500, L501.5200 ####[facility] [address] [place], [address] Eosinophils/100 WBC (Bld) 0.7 % Normal 0-5 [facility] Comment on above: Performed By: #### L 501.2300, L100.0100, L500.2500, L501.5200 ####[facility] [address] [place], [address] Erythrocyte distribution width (RBC) [Ratio] 19.1 % High 11.6-14.6 [facility] Comment on above: Performed By: #### L 501.2300, L100.0100, L500.2500, L501.5200 ####[facility] [address] [place], [address] Hematocrit (Bld) [Volume fraction] 26.9 % Low 40-54 [facility] Comment on above: Performed By: #### L 501.2300, L100.0100, L500.2500, L501.5200 ####[facility] [address] [place], [address] Hemoglobin (Bld) [Mass/Vol] 7.6 g/dL Low 13.0-16.5 [facility] Comment on above: Performed By: #### L 501.2300, L100.0100, L500.2500, L501.5200 ####[facility] [address] [place], [address] IG% 2.200 High 0.0-0.9 [facility] Comment on above: Result Comment: IG% - Immature Granulocytes (promyelocytes, myelocytes andmetamyelocytes) > 1% indicates that a LEFT SHIFT is Present. Performed By: #### L 501.2300, L100.0100, L500.2500, L501.5200 ####[facility] [address] [place], [address] Lymphocytes/100 WBC (Bld) 25.2 % Normal 19-41 [facility] Comment on above: Performed By: #### L 501.2300, L100.0100, L500.2500, L501.5200 ####[facility] [address] [place], [address] MCH (RBC) [Entitic mass] 23.5 pg Low 27.0-32.0 [facility] Comment on above: Performed By: #### L 501.2300, L100.0100, L500.2500, L501.5200 ####[facility] [address] [place], [address] MCHC (RBC) [Mass/Vol] 28.3 g/dL Low 32-36 [facility] Comment on above: Performed By: #### L 501.2300, L100.0100, L500.2500, L501.5200 ####[facility] [address] [place], [address] MCV (RBC) [Entitic vol] 83.0 fL Normal 80-94 [facility] Comment on above: Performed By: #### L 501.2300, L100.0100, L500.2500, L501.5200 ####[facility] [address] [place], [address] Monocytes/100 WBC (Bld) 6.5 % Normal 0-10 [facility] Comment on above: Performed By: #### L 501.2300, L100.0100, L500.2500, L501.5200 ####[facility] [address] [place], [address] Neutrophils/100 WBC (Bld) 65.2 % Normal 47-70 [facility] Comment on above: Performed By: #### L 501.2300, L100.0100, L500.2500, L501.5200 ####[facility] [address] [place], [address] Nucleated RBC (Bld) [#/Vol] 0 10*3/uL Normal 0-5 [facility] Comment on above: Performed By: #### L 501.2300, L100.0100, L500.2500, L501.5200 ####[facility] [address] [place], [address] Platelet mean volume (Bld) [Entitic vol] 9.5 fL Normal 6.2-12.0 [facility] Comment on above: Performed By: #### L 501.2300, L100.0100, L500.2500, L501.5200 ####[facility] [address] [place], [address] Platelets (Bld) [#/Vol] 261 10*3/uL Normal 150-450 [facility] Comment on above: Performed By: #### L 501.2300, L100.0100, L500.2500, L501.5200 ####[facility] [address] [place], [address] RBC (Bld) [#/Vol] 3.24 10*6/uL Low 4.6-6.2 [facility] Comment on above: Performed By: #### L 501.2300, L100.0100, L500.2500, L501.5200 ####[facility] [address] [place], [address] RDW SD 57.3 fl High 35.1-43.9 [facility] Comment on above: Performed By: #### L 501.2300, L100.0100, L500.2500, L501.5200 ####[facility] [address] [place], [address] WBC (Bld) [#/Vol] 12.2 10*3/uL High 4.4-11.0 [facility] Comment on above: Performed By: #### L 501.2300, L100.0100, L500.2500, L501.5200 ####[facility] [address] [place], [address] Magnesiumon 09-21-2025 Magnesium [Mass/Vol] 1.7 mg/dL Normal 1.5-2.2 [facility] Comment on above: Performed By: #### L 501.2300, L100.0100, L500.2500, L501.5200 ####[facility] [address] [place], [address] Phosphoruson 09-21-2025 Phosphate [Mass/Vol] 2.8 mg/dL Normal 2.7-4.5 [facility] Comment on above: Performed By: #### L 501.2300, L100.0100, L500.2500, L501.5200 ####[facility] [address] [place], [address] BC GPC IDon 09-20-2025 BC GPC ID Normal [facility] Comment on above: Performed By: #### M 200.1000, M100.636 ####[facility] [address] [place], [address] CBC W/Diff, Automatedon - SMEAR COMMENT SCANNED Normal [facility] Comment on above: Result Comment: MONO CYTOSIS PRESENT Performed By: #### L 100.0100, L500.4050 ####[facility] [address] [place], [address] Comprehensive Metabolic Prof ilon 09-20-2025 Albumin [Mass/Vol] 2.1 g/dL Low 3.4-4.8 [facility] Comment on above: Performed By: #### L 100.0100, L500.4050 ####[facility] [address] [place], [address] Albumin/Globulin [Mass ratio] 0.5 {ratio} Low 0.9-2.4 [facility] Comment on above: Performed By: #### L 100.0100, L500.4050 ####[facility] [address] [place], [address] ALK PHOS 176 U/L High 40-129 [facility] Comment on above: Performed By: #### L 100.0100, L500.4050 ####[facility] [address] [place], [address] ALT [Catalytic activity/Vol] 58 U/L High <=46 [facility] Comment on above: Performed By: #### L 100.0100, L500.4050 ####[facility] [address] [place], [address] AST [Catalytic activity/Vol] 89 U/L High <=37 [facility] Comment on above: Performed By: #### L 100.0100, L500.4050 ####[facility] [address] [place], [address] Bilirubin [Mass/Vol] 0.46 mg/dL Normal 0.00-1.30 [facility] Comment on above: Performed By: #### L 100.0100, L500.4050 ####[facility] [address] [place], [address] BUN/CRE 23.6 RATIO High 10-20 [facility] Comment on above: Performed By: #### L 100.0100, L500.4050 ####[facility] [address] [place], [address] Calcium [Mass/Vol] 8.2 mg/dL Normal 7.6-11.0 [facility] Comment on above: Performed By: #### L 100.0100, L500.4050 ####[facility] [address] [place], [address] Chloride [Moles/Vol] 105 mmol/L Normal 98-108 [facility] Comment on above: Performed By: #### L 100.0100, L500.4050 ####[facility] [address] [place], [address] CO2 [Moles/Vol] 26.6 mmol/L Normal 21.0-32.0 [facility] Comment on above: Performed By: #### L 100.0100, L500.4050 ####[facility] [address] [place], [address] Creatinine [Mass/Vol] 1.35 mg/dL High 0.70-1.20 [facility] Comment on above: Performed By: #### L 100.0100, L500.4050 ####[facility] [address] [place], [address] ECRCL 38.55 ml/min Low 50-250 [facility] Comment on above: Performed By: #### L 100.0100, L500.4050 ####[facility] [address] [place], [address] GAP 11 Normal 5-15 [facility] Comment on above: Performed By: #### L 100.0100, L500.4050 ####[facility] [address] [place], [address] GFR/1.73 sq M.predicted among non-blacks MDRD (S/P/Bld) [Vol rate/Area] 51 mL/min/{1.73_m2} Low >60 [facility] Comment on above: Result Comment: mL/m in/1.73m2 CKD-EPI Creatinine Equation (2020) Performed By: #### L 100.0100, L500.4050 ####[facility] [address] [place], [address] Globulin (S) [Mass/Vol] 4.3 g/dL High 2.2-4.2 [facility] Comment on above: Performed By: #### L 100.0100, L500.4050 ####[facility] [address] [place], [address] Glucose [Mass/Vol] 107 mg/dL High 70-99 [facility] Comment on above: Performed By: #### L 100.0100, L500.4050 ####[facility] [address] [place], [address] Potassium [Moles/Vol] 3.8 mmol/L Normal 3.3-5.1 [facility] Comment on above: Performed By: #### L 100.0100, L500.4050 ####[facility] [address] [place], [address] Sodium [Moles/Vol] 142 mmol/L Normal 133-145 [facility] Comment on above: Performed By: #### L 100.0100, L500.4050 ####[facility] [address] [place], [address] T PROT 6.4 g/dL Normal 5.9-8.4 [facility] Comment on above: Performed By: #### L 100.0100, L500.4050 ####[facility] [address] [place], [address] Urea nitrogen [Mass/Vol] 32 mg/dL High 4-19 [facility] Comment on above: Performed By: #### L 100.0100, L500.4050 ####[facility] [address] [place], [address] Legionella Antigen Urineon 1 LEGU Normal [facility] Comment on above: Performed By: #### M 300.4500, M300.4600 ####[facility] [address] [place], [address] M100.019on 09-20-2025 M100.019 Negative Normal [facility] Comment on above: Performed By: #### M 100.019 ####[facility] [address] [place], [address] RESPIRATORY PANEL MOLECULARo n 09-20-2025 RP PANEL Normal [facility] Comment on above: Performed By: #### M 100.638 ####[facility] [address] [place], [address] Strep pneumoniae Antig(UR,CS F)on 09-20-2025 STPAG Normal [facility] Comment on above: Performed By: #### M 300.4500, M300.4600 ####[facility] [address] [place], [address] Urine Cultureon 09-20-2025 URC Culture exhibits no growth. Normal [facility] Comment on above: Performed By: #### M 100.2200 ####[facility] [address] [place], [address] Basic Metabolic Profile (BMP )on 09-19-2025 BUN/CRE 20.3 RATIO High 09-11 [facility] Comment on above: Performed By: #### L 500.2500, L503.7505, L100.0100, L503.6005 ####[facility] [address] [place], [address] Calcium [Mass/Vol] 8.4 mg/dL Normal 7.6-11.0 [facility] Comment on above: Performed By: #### L 500.2500, L503.7505, L100.0100, L503.6005 ####[facility] [address] [place], [address] Chloride [Moles/Vol] 102 mmol/L Normal 98-108 [facility] Comment on above: Performed By: #### L 500.2500, L503.7505, L100.0100, L503.6005 ####[facility] [address] [place], [address] CO2 [Moles/Vol] 27.1 mmol/L Normal 21.0-32.0 [facility] Comment on above: Performed By: #### L 500.2500, L503.7505, L100.0100, L503.6005 ####[facility] [address] [place], [address] Creatinine [Mass/Vol] 1.45 mg/dL High 0.70-1.20 [facility] Comment on above: Performed By: #### L 500.2500, L503.7505, L100.0100, L503.6005 ####[facility] [address] [place], [address] ECRCL 35.89 ml/min Low 50-250 [facility] Comment on above: Performed By: #### L 500.2500, L503.7505, L100.0100, L503.6005 ####[facility] [address] [place], [address] GAP 12 Normal 5-15 [facility] Comment on above: Performed By: #### L 500.2500, L503.7505, L100.0100, L503.6005 ####[facility] [address] [place], [address] GFR/1.73 sq M.predicted among non-blacks MDRD (S/P/Bld) [Vol rate/Area] 47 mL/min/{1.73_m2} Low >60 [facility] Comment on above: Result Comment: mL/m in/1.73m2 CKD-EPI Creatinine Equation (2020) Performed By: #### L 500.2500, L503.7505, L100.0100, L503.6005 ####[facility] [address] [place], [address] Glucose [Mass/Vol] 150 mg/dL High 70-99 [facility] Comment on above: Performed By: #### L 500.2500, L503.7505, L100.0100, L503.6005 ####[facility] [address] [place], [address] Potassium [Moles/Vol] 3.8 mmol/L Normal 3.3-5.1 [facility] Comment on above: Performed By: #### L 500.2500, L503.7505, L100.0100, L503.6005 ####[facility] [address] [place], [address] Sodium [Moles/Vol] 142 mmol/L Normal 133-145 [facility] Comment on above: Performed By: #### L 500.2500, L503.7505, L100.0100, L503.6005 ####[facility] [address] [place], [address] Urea nitrogen [Mass/Vol] 30 mg/dL High 4-19 [facility] Comment on above: Performed By: #### L 500.2500, L503.7505, L100.0100, L503.6005 ####[facility] [address] [place], [address] Blood Gases by [facility] 10-28-2 025 TORSTEN TEST N/A Normal [facility] Comment on above: Performed By: #### L 9000.0800 ####[facility] [address] [place], [address] Base excess Calc (Bld) [Moles/Vol] 6 mmol/L High -2 to +2 [facility] Comment on above: Performed By: #### L 9000.0800 ####[facility] [address] [place], [address] Blood Gas Type ART Normal [facility] Comment on above: Performed By: #### L 8999.0800 ####[facility] [address] [place], [address] CO2 [Moles/Vol] 32 mmol/L Normal [facility] Comment on above: Performed By: #### L 0.0800 ####[facility] [address] [place], [address] HCO3 (Bld) [Moles/Vol] 30.2 mmol/L High 22-26 [facility] Comment on above: Performed By: #### L 8999.0800 ####[facility] [address] [place], [address] Mode Not entered Normal [facility] Comment on above: Performed By: #### L 8999.0800 ####[facility] [address] [place], [address] O2 Delivery Dev Room Air Normal [facility] Comment on above: Performed By: #### L 0.0800 ####[facility] [address] [place], [address] pCO2 45.1 mmHg High 35-45 [facility] Comment on above: Performed By: #### L 8999.0800 ####[facility] [address] [place], [address] pH (Bld) 7.43 [pH] Normal 7.35-7.45 [facility] Comment on above: Performed By: #### L 0.0800 ####[facility] [address] [place], [address] PO2 62 mmHG Low 75-100 [facility] Comment on above: Performed By: #### L 9000.0800 ####[facility] [address] [place], [address] SITE R Brach Normal [facility] Comment on above: Performed By: #### L 9000.0800 ####[facility] [address] [place], [address] SO2 92 Low 94-98 [facility] Comment on above: Performed By: #### L 9000.0800 ####[facility] [address] [place], [address] CBC W/Diff, Automatedon 10-2 Absolute Lymph 2.57 X10 3/uL Normal 0.83-4.51 [facility] Comment on above: Performed By: #### L 500.2500, L503.7505, L100.0100, L503.6005 ####[facility] [address] [place], [address] Absolute Neut 8.6 X10 3/uL High 2.0-7.7 [facility] Comment on above: Performed By: #### L 500.2500, L503.7505, L100.0100, L503.6005 ####[facility] [address] [place], [address] Basophils/100 WBC (Bld) 0.2 % Normal 0-1 [facility] Comment on above: Performed By: #### L 500.2500, L503.7505, L100.0100, L503.6005 ####[facility] [address] [place], [address] Eosinophils/100 WBC (Bld) 0.1 % Normal 0-5 [facility] Comment on above: Performed By: #### L 500.2500, L503.7505, L100.0100, L503.6005 ####[facility] [address] [place], [address] Erythrocyte distribution width (RBC) [Ratio] 19.1 % High 11.6-14.6 [facility] Comment on above: Performed By: #### L 500.2500, L503.7505, L100.0100, L503.6005 ####[facility] [address] [place], [address] Hematocrit (Bld) [Volume fraction] 28.6 % Low 40-54 [facility] Comment on above: Performed By: #### L 500.2500, L503.7505, L100.0100, L503.6005 ####[facility] [address] [place], [address] Hemoglobin (Bld) [Mass/Vol] 8.3 g/dL Low 13.0-16.5 [facility] Comment on above: Performed By: #### L 500.2500, L503.7505, L100.0100, L503.6005 ####[facility] [address] [place], [address] IG% 2.200 High 0.0-0.9 [facility] Comment on above: Result Comment: IG% - Immature Granulocytes (promyelocytes, myelocytes andmetamyelocytes) > 1% indicates that a LEFT SHIFT is Present. Performed By: #### L 500.2500, L503.7505, L100.0100, L503.6005 ####[facility] [address] [place], [address] Lymphocytes/100 WBC (Bld) 20.8 % Normal 19-41 [facility] Comment on above: Performed By: #### L 500.2500, L503.7505, L100.0100, L503.6005 ####[facility] [address] [place], [address] MCH (RBC) [Entitic mass] 24.3 pg Low 27.0-32.0 [facility] Comment on above: Performed By: #### L 500.2500, L503.7505, L100.0100, L503.6005 ####[facility] [address] [place], [address] MCHC (RBC) [Mass/Vol] 29.0 g/dL Low 32-36 [facility] Comment on above: Performed By: #### L 500.2500, L503.7505, L100.0100, L503.6005 ####[facility] [address] [place], [address] MCV (RBC) [Entitic vol] 83.6 fL Normal 80-94 [facility] Comment on above: Performed By: #### L 500.2500, L503.7505, L100.0100, L503.6005 ####[facility] [address] [place], [address] Monocytes/100 WBC (Bld) 7.3 % Normal 0-10 [facility] Comment on above: Performed By: #### L 500.2500, L503.7505, L100.0100, L503.6005 ####[facility] [address] [place], [address] Neutrophils/100 WBC (Bld) 69.4 % Normal 47-70 [facility] Comment on above: Performed By: #### L 500.2500, L503.7505, L100.0100, L503.6005 ####[facility] [address] [place], [address] Nucleated RBC (Bld) [#/Vol] 0 10*3/uL Normal 0-5 [facility] Comment on above: Performed By: #### L 500.2500, L503.7505, L100.0100, L503.6005 ####[facility] [address] [place], [address] Platelet mean volume (Bld) [Entitic vol] 9.3 fL Normal 6.2-12.0 [facility] Comment on above: Performed By: #### L 500.2500, L503.7505, L100.0100, L503.6005 ####[facility] [address] [place], [address] Platelets (Bld) [#/Vol] 277 10*3/uL Normal 150-450 [facility] Comment on above: Performed By: #### L 500.2500, L503.7505, L100.0100, L503.6005 ####[facility] [address] [place], [address] RBC (Bld) [#/Vol] 3.42 10*6/uL Low 4.6-6.2 [facility] Comment on above: Performed By: #### L 500.2500, L503.7505, L100.0100, L503.6005 ####[facility] [address] [place], [address] RDW SD 56.9 fl High 35.1-43.9 [facility] Comment on above: Performed By: #### L 500.2500, L503.7505, L100.0100, L503.6005 ####[facility] [address] [place], [address] WBC (Bld) [#/Vol] 12.4 10*3/uL High 4.4-11.0 [facility] Comment on above: Performed By: #### L 500.2500, L503.7505, L100.0100, L503.6005 ####[facility] [address] [place], [address] CTA Chest W/WO Contraston CTA Chest W/WO Contrast Normal [facility] Emergency Department Summary on 09-19-2025 Emergency Department Summary Normal [facility] H AND P Exam - Hospitaliston 09-19-2025 H&P Exam - Hospitalist Normal [facility] L509.7001on 09-19-2025 Procalcitonin 0.37 ng/mL High <=0.10 [facility] Comment on above: Result Comment: Inte rpretation:<0.10-0.25 ng/mL: Antibiotic therapy discouraged. Bacterialinfection unlikely.0.25-0.50 ng/mL: Antibiotic therapy encouraged. Bacterialinfection possible.>0.50 ng/mL: Antibiotic therapy strongly encouraged.Suggestive of presence of bacterial infection.PCT should always be interpreted in the clinical context ofthe patient. Therefore, clinicians should use the PCTresults in conjunction with other laboratory findings andclinical signs of the patient. Performed By: #### L 509.1000 ####[facility] [address] [place], [place], [address] Lactic Acidon 09-19-2025 Lactate [Moles/Vol] 2.2 mmol/L Invalid Interpretation Code 0.0-2.0 [facility] Comment on above: Result Comment: Crit ical Result(s) Called at: 222409/19/2025 by: AICHA ??Results read back by same. Performed By: #### L 503.0478 ####[facility] [address] [place], [place], [address] Lactate [Moles/Vol] 3.5 mmol/L Invalid Interpretation Code 0.0-2.0 [facility] Comment on above: Order Comment: Y Result Comment: Crit ical Result(s) Called at: 1804 09/19/2025 by: KENRICK??Results read back by same. Performed By: #### L 500.2500, L503.7505, L100.0100, L503.6005 ####[facility] [address] [place], [address] Magnesiumon 09-19-2025 Magnesium [Mass/Vol] 1.8 mg/dL Normal 1.5-2.2 [facility] Comment on above: Order Comment: Comme nts: May add to ED labsComments: may add to ED labs Performed By: #### L 501.5200, L501.2300 ####[facility] [address] [place], [address] Phosphoruson 09-19-2025 Phosphate [Mass/Vol] 3.1 mg/dL Normal 2.7-4.5 [facility] Comment on above: Order Comment: Comme nts: May add to ED labsComments: may add to ED labs Performed By: #### L 501.5200, L501.2300 ####[facility] [address] [place], [address] Pro- Brain NATRIURETIC PEPTI Betsy 09-19-2025 Natriuretic peptide B (Bld) [Mass/Vol] 90732 pg/mL High <=1800 [facility] Comment on above: Result Comment: Hear t Failure Unlikely: < 300 pg/mLHeart Failure Likely< 50 Years: > 450 pg/mL50-75 Years: > 900 pg/mL>75 Years: > 1800 pg/mL Performed By: #### L 500.2500, L503.7505, L100.0100, L503.6005 ####[facility] [address] [place], [address] Urinalysis, Completeon 09-19 BACTERIA 2+ /hpf Normal None Seen [facility] Comment on above: Order Comment: CLEAN CATCH Performed By: #### L 400.0001 ####[facility] [address] [place], [address] CAST,HYALINE 0-5 SEEN Normal 0-5 [facility] Comment on above: Order Comment: CLEAN CATCH Performed By: #### L 400.0001 ####[facility] [address] [place], [address] Mucus Ql (Urine sed) 1+ /hpf Normal [facility] Comment on above: Order Comment: CLEAN CATCH Performed By: #### L 400.0001 ####[facility] [address] [place], [address] RBC 0-5 SEEN Normal 0-5 [facility] Comment on above: Order Comment: CLEAN CATCH Performed By: #### L 400.0001 ####[facility] [address] [place], [address] WBC 0-5 SEEN Normal 0-5 [facility] Comment on above: Order Comment: CLEAN CATCH Performed By: #### L 400.0001 ####[facility] [address] [place], [address] EPI,SQUAMOUS 0 SEEN Normal 0-5 [facility] Comment on above: Order Comment: CLEAN CATCH Performed By: #### L 400.0001 ####[facility] [address] [place], [address] Venous Duplex Imag/Limited/U nion 09-19-2025 Venous Duplex Imag/Limited/Uni Normal [facility] CBC-Complete Blood Cnt No Di ffon 09-18-2025 Erythrocyte distribution width (RBC) [Ratio] 19.9 % High 11.6-14.6 [facility] Comment on above: Order Comment: 125.2 Performed By: #### L 100.0500 ####[facility] [address] [place], [address] Hematocrit (Bld) [Volume fraction] 25.8 % Low 40-54 [facility] Comment on above: Order Comment: 125.2 Performed By: #### L 100.0500 ####[facility] [address] [place], [address] Hemoglobin (Bld) [Mass/Vol] 8.4 g/dL Low 13.0-16.5 [facility] Comment on above: Order Comment: 125.2 Performed By: #### L 100.0500 ####[facility] [address] [place], [address] MCH (RBC) [Entitic mass] 27.8 pg Normal 27.0-32.0 [facility] Comment on above: Order Comment: 125.2 Performed By: #### L 100.0500 ####[facility] [address] [place], [address] MCHC (RBC) [Mass/Vol] 32.6 g/dL Normal 32-36 [facility] Comment on above: Order Comment: 125.2 Performed By: #### L 100.0500 ####[facility] [address] [place], [address] MCV (RBC) [Entitic vol] 85.4 fL Normal 80-94 [facility] Comment on above: Order Comment: 125.2 Performed By: #### L 100.0500 ####[facility] [address] [place], [address] Platelet mean volume (Bld) [Entitic vol] 9.6 fL Normal 6.2-12.0 [facility] Comment on above: Order Comment: 125.2 Performed By: #### L 100.0500 ####[facility] [address] [place], [address] Platelets (Bld) [#/Vol] 259 10*3/uL Normal 150-450 [facility] Comment on above: Order Comment: 125.2 Performed By: #### L 100.0500 ####[facility] [address] [place], [address] RBC (Bld) [#/Vol] 3.02 10*6/uL Low 4.6-6.2 [facility] Comment on above: Order Comment: 125.2 Performed By: #### L 100.0500 ####[facility] [address] [place], [address] RDW SD 57.1 fl High 35.1-43.9 [facility] Comment on above: Order Comment: 125.2 Performed By: #### L 100.0500 ####[facility] [address] [place], [address] WBC (Bld) [#/Vol] 11.7 10*3/uL High 4.4-11.0 [facility] Comment on above: Order Comment: 125.2 Performed By: #### L 100.0500 ####[facility] [address] [place], [address] Basic Metabolic Profile (BMP )on 09-13-2025 BUN Normal - [facility] Comment on above: Order Comment: 125.2 Result Comment: LABS WERE DONE 09/11 DOES NOT NEED REPEATED 09/[address]Y [address] CASTILLO Performed By: #### L 500.2500, L100.0100 ####[facility] [address] [place], [address] BUN/CRE Normal - [facility] Comment on above: Order Comment: 125.2 Result Comment: LABS WERE DONE 09/11 DOES NOT NEED REPEATED 09/13 [address]A AND [address] CASTILLO Performed By: #### L 500.2500, L100.0100 ####[facility] [address] [place], [address] Calcium Normal 7.6-11.0 [facility] Comment on above: Order Comment: 125.2 Result Comment: LABS WERE DONE 09/11 DOES NOT NEED REPEATED 10/22 PER [address]URSEL[address]Y AND DR CASTILLO Performed By: #### L 500.2500, L100.0100 ####[facility] [address] [place], [address] CL Normal 98-108 [facility] Comment on above: Order Comment: 125.2 Result Comment: LABS WERE DONE 09/11 DOES NOT NEED REPEATED 10/22 PER NURSELINDSAY AND DR CASTILLO Performed By: #### L 500.2500, L100.0100 ####[facility] [address] [place], [address] CO2 Normal 21.0-32.0 [facility] Comment on above: Order Comment: 125.2 Result Comment: LABS WERE DONE 09/11 DOES NOT NEED REPEATED 10/22 PER [address]URSELINLAKESHIAAY AND DR CASTILLO Performed By: #### L 500.2500, L100.0100 ####[facility] [address] [place], [address] CREAT,SERUM Normal 0.70-1.20 [facility] Comment on above: Order Comment: 125.2 Result Comment: LABS WERE DONE 09/11 DOES NOT NEED REPEATED 10/22 [address]AYA [address] CASTILLO Performed By: #### L 500.2500, L100.0100 ####[facility] [address] [place], [address] eGFR Normal >60 [facility] Comment on above: Order Comment: 125.2 Result Comment: LABS WERE DONE 09/11 DOES NOT NEED REPEATED 10/[address] AND DR CASTILLO Performed By: #### L 500.2500, L100.0100 ####[facility] [address] [place], [address] GAP Normal 5-15 [facility] Comment on above: Order Comment: 125.2 Result Comment: LABS WERE DONE 09/11 DOES NOT NEED REPEATED 10/22 [address]A [address] CASTILLO Performed By: #### L 500.2500, L100.0100 ####[facility] [address] [place], [address] GLU Normal 70-99 [facility] Comment on above: Order Comment: 125.2 Result Comment: LABS WERE DONE 09/11 DOES NOT NEED REPEATED 10/22 PER NURSELINYAYA AND DR CASTILLO Performed By: #### L 500.2500, L100.0100 ####[facility] [address] [place], [address] Potassium Normal 3.3-5.1 [facility] Comment on above: Order Comment: 125.2 Result Comment: LABS WERE DONE 09/11 DOES NOT NEED REPEATED 10/22 PER NURSELINDSAY AND DR CASTILLO Performed By: #### L 500.2500, L100.0100 ####[facility] [address] [place], [address] Basic Metabolic Profile (BMP) Normal 133-145 [facility] Comment on above: Order Comment: 125.2 Result Comment: LABS WERE DONE 09/11 DOES NOT NEED REPEATED 10/22 PER NURSELINDSAY AND DR CASTILLO Performed By: #### L 500.2500, L100.0100 ####[facility] [address] [place], [address] CBC W/Diff, Automatedon 10-12 25-2024 Absolute Neut Normal 2.0-7.7 [facility] Comment on above: Order Comment: 125.2 Result Comment: LABS WERE DONE 09/11 DOES NOT NEED REPEATED 10/22 PER [address]Y AND DR CASTILLO Performed By: #### L 500.2500, L100.0100 ####[facility] [address] [place], [address] HCT Normal 40-54 [facility] Comment on above: Order Comment: 125.2 Result Comment: LABS WERE DONE 09/11 DOES NOT NEED REPEATED 10/[address]AYA AND DR CASTILLO Performed By: #### L 500.2500, L100.0100 ####[facility] [address] [place], [address] HGB Normal 13.0-16.5 [facility] Comment on above: Order Comment: 125.2 Result Comment: LABS WERE DONE 09/11 DOES NOT NEED REPEATED 10/22 [address]YAYA AND DR CASTILLO Performed By: #### L 500.2500, L100.0100 ####[facility] [address] [place], [address] MCH Normal 27.0-32.0 [facility] Comment on above: Order Comment: 125.2 Result Comment: LABS WERE DONE 09/11 DOES NOT NEED REPEATED 10/22 PER NURSELINDSAY AND DR CASTILLO Performed By: #### L 500.2500, L100.0100 ####[facility] [address] [place], [address] MCHC Normal 32-36 [facility] Comment on above: Order Comment: 125.2 Result Comment: LABS WERE DONE 09/11 DOES NOT NEED REPEATED 10/22 PER NURSELINLAKESHIAAY AND DR CASTILLO Performed By: #### L 500.2500, L100.0100 ####[facility] [address] [place], [address] MCV Normal 80-94 [facility] Comment on above: Order Comment: 125.2 Result Comment: LABS WERE DONE 09/11 DOES NOT NEED REPEATED 10/22 PER [address]YAYA AND DR CASTILLO Performed By: #### L 500.2500, L100.0100 ####[facility] [address] [place], [address] NEUT% Normal 47-70 [facility] Comment on above: Order Comment: 125.2 Result Comment: LABS WERE DONE 09/11 DOES NOT NEED REPEATED 10/22 [address] CASTILLO Performed By: #### L 500.2500, L100.0100 ####[facility] [address] [place], [address] PLT Normal 150-450 [facility] Comment on above: Order Comment: 125.2 Result Comment: LABS WERE DONE 09/11 DOES NOT NEED REPEATED 10/22 PER NURSELINDSAY AND DR CASTILLO Performed By: #### L 500.2500, L100.0100 ####[facility] [address] [place], [address] RBC Normal 4.6-6.2 [facility] Comment on above: Order Comment: 125.2 Result Comment: LABS WERE DONE 09/11 DOES NOT NEED REPEATED 10/[address] CASTILLO Performed By: #### L 500.2500, L100.0100 ####[facility] [address] [place], [address] RDW CV Normal 11.6-14.6 [facility] Comment on above: Order Comment: 125.2 Result Comment: LABS WERE DONE 09/11 DOES NOT NEED REPEATED 09/[address] CASTILLO Performed By: #### L 500.2500, L100.0100 ####[facility] [address] [place], [address] RDW SD Normal 35.1-43.9 [facility] Comment on above: Order Comment: 125.2 Result Comment: LABS WERE DONE 09/11 DOES NOT NEED REPEATED 09/[address] CASTILLO Performed By: #### L 500.2500, L100.0100 ####[facility] [address] [place], [address] WBC Normal 4.4-11.0 [facility] Comment on above: Order Comment: 125.2 Result Comment: LABS WERE DONE 09/11 DOES NOT NEED REPEATED 09/[address] CASTILLO Performed By: #### L 500.2500, L100.0100 ####[facility] [address] [place], [address] Basic Metabolic Profile (BMP )on 09-11-2025 BUN/CRE 20.8 RATIO High 09-11 [facility] Comment on above: Order Comment: 125.2 Performed By: #### L 500.2500, L100.0500 ####[facility] [address] [place], [address] Calcium [Mass/Vol] 8.1 mg/dL Normal 7.6-11.0 [facility] Comment on above: Order Comment: 125.2 Performed By: #### L 500.2500, L100.0500 ####[facility] [address] [place], [address] Chloride [Moles/Vol] 101 mmol/L Normal 98-108 [facility] Comment on above: Order Comment: 125.2 Performed By: #### L 500.2500, L100.0500 ####[facility] [address] [place], [address] CO2 [Moles/Vol] 28.7 mmol/L Normal 21.0-32.0 [facility] Comment on above: Order Comment: 125.2 Performed By: #### L 500.2500, L100.0500 ####[facility] [address] [place], [address] Creatinine [Mass/Vol] 1.12 mg/dL Normal 0.70-1.20 [facility] Comment on above: Order Comment: 125.2 Performed By: #### L 500.2500, L100.0500 ####[facility] [address] [place], [address] GAP 10 Normal 5-15 [facility] Comment on above: Order Comment: 125.2 Performed By: #### L 500.2500, L100.0500 ####[facility] [address] [place], [address] GFR/1.73 sq M.predicted among non-blacks MDRD (S/P/Bld) [Vol rate/Area] 64 mL/min/{1.73_m2} Normal >60 [facility] Comment on above: Order Comment: 125.2 Result Comment: mL/m in/1.73m2 CKD-EPI Creatinine Equation (2020) Performed By: #### L 500.2500, L100.0500 ####[facility] [address] [place], [address] Glucose [Mass/Vol] 104 mg/dL High 70-99 [facility] Comment on above: Order Comment: 125.2 Performed By: #### L 500.2500, L100.0500 ####[facility] [address] [place], [address] Potassium [Moles/Vol] 3.7 mmol/L Normal 3.3-5.1 [facility] Comment on above: Order Comment: 125.2 Performed By: #### L 500.2500, L100.0500 ####[facility] [address] [place], [address] Sodium [Moles/Vol] 140 mmol/L Normal 133-145 [facility] Comment on above: Order Comment: 125.2 Performed By: #### L 500.2500, L100.0500 ####[facility] [address] [place], [address] Urea nitrogen [Mass/Vol] 23 mg/dL High 4-19 [facility] Comment on above: Order Comment: 125.2 Performed By: #### L 500.2500, L100.0500 ####[facility] [address] [place], [address] CBC-Complete Blood Cnt No Di ffon 09-11-2025 Erythrocyte distribution width (RBC) [Ratio] 18.6 % High 11.6-14.6 [facility] Comment on above: Order Comment: 125.2 Performed By: #### L 500.2500, L100.0500 ####[facility] [address] [place], [address] Hematocrit (Bld) [Volume fraction] 26.4 % Low 40-54 [facility] Comment on above: Order Comment: 125.2 Performed By: #### L 500.2500, L100.0500 ####[facility] [address] [place], [address] Hemoglobin (Bld) [Mass/Vol] 8.0 g/dL Low 13.0-16.5 [facility] Comment on above: Order Comment: 125.2 Performed By: #### L 500.2500, L100.0500 ####[facility] [address] [place], [address] MCH (RBC) [Entitic mass] 25.6 pg Low 27.0-32.0 [facility] Comment on above: Order Comment: 125.2 Performed By: #### L 500.2500, L100.0500 ####[facility] [address] [place], [address] MCHC (RBC) [Mass/Vol] 30.3 g/dL Low 32-36 [facility] Comment on above: Order Comment: 125.2 Performed By: #### L 500.2500, L100.0500 ####[facility] [address] [place], [address] MCV (RBC) [Entitic vol] 84.6 fL Normal 80-94 [facility] Comment on above: Order Comment: 125.2 Performed By: #### L 500.2500, L100.0500 ####[facility] [address] [place], [address] Platelet mean volume (Bld) [Entitic vol] 8.9 fL Normal 6.2-12.0 [facility] Comment on above: Order Comment: 125.2 Performed By: #### L 500.2500, L100.0500 ####[facility] [address] [place], [address] Platelets (Bld) [#/Vol] 229 10*3/uL Normal 150-450 [facility] Comment on above: Order Comment: 125.2 Performed By: #### L 500.2500, L100.0500 ####[facility] [address] [place], [address] RBC (Bld) [#/Vol] 3.12 10*6/uL Low 4.6-6.2 [facility] Comment on above: Order Comment: 125.2 Performed By: #### L 500.2500, L100.0500 ####[facility] [address] [place], [address] RDW SD 54.8 fl High 35.1-43.9 [facility] Comment on above: Order Comment: 125.2 Performed By: #### L 500.2500, L100.0500 ####[facility] [address] [place], [address] WBC (Bld) [#/Vol] 13.6 10*3/uL High 4.4-11.0 [facility] Comment on above: Order Comment: 125.2 Performed By: #### L 500.2500, L100.0500 ####[facility] [address] [place], [address] Ankle Brachial Indexon 09-01 Ankle Brachial Index Normal [facility] US Art Duplex Unilat Lower E xton 09-01-2025 US Art Duplex Unilat Lower Ext Normal [facility] BRCon 08-24-2025 RC Normal [facility] Comment on above: Result Comment: [id number] OP RC TRANSFUSED 08/24/25 0956 Performed By: #### B LOGAN CULLEN ####[facility] [address] [place], [address] MR/BMS.BVSon 08-24-2025 MR/BMS.BVS Normal [facility] Type AND Screenon 08-24-2025 Ab SCREEN GEL Negative Normal [facility] Comment on above: Order Comment: NTNYA Performed By: #### B LOGAN CULLEN ####[facility] [address] [place], [address] Absolute lymphocyte countOrd ered By: Trixie Pang on 08-23-2025 Lymphocytes Auto (Unsp spec) [#/Vol] 1.87 10*3/uL 0.83-4.51 [facility] Anion gap in Serum or Plasma Ordered By: Trixie Pang on 08-23-2025 Anion gap [Moles/Vol] 10 mmol/L 5-15 [facility] Automated lymphocyte count a s percentage of total leukocytesOrdered By: Trixie Pang on 08-23-2025 Lymphocytes/100 WBC Auto (Unsp spec) 32.2 % 19-41 [facility] BUN/creatinine ratioOrdered By: Trixie Pang on 08-23-2025 Urea nitrogen/Creatinine [Mass ratio] 11.2 mg/mg 10-20 [facility] Basophil percentageOrdered B y: Trixie Pang on 08-23-2025 Basophils/100 WBC (Bld) 0.2 % 0-1 [facility] Carbon dioxide, total [Moles /volume] in Central venous bloodOrdered By: Trixie Pang on 08-23-2025 CO2 [Moles/Vol] 26.3 mmol/L 21.0-32.0 [facility] Chloride assayOrdered By: Bandar Pang on 08-23-2025 Chloride [Moles/Vol] 101 mmol/L 98-108 [facility] Eosinophil percentageOrdered By: Trixie Pang on 08-23-2025 Eosinophils/100 WBC (Bld) 0.3 % 0-5 [facility] Erythrocyte distribution wid th ratioOrdered By: Trixie Pang on 08-23-2025 Erythrocyte distribution width (RBC) [Ratio] 17.3 % High 11.6-14.6 [facility] Erythrocyte distribution wid th standard deviationOrdered By: Trixie Pang on 08-23-2025 Erythrocyte distribution width (RBC) [Ratio] 50.4 fl High 35.1-43.9 [facility] Glomerular filtration rate ( GFR) estimation/1.73 sq m using serum, plasma, or whole bOrdered By: Trixie Pang on 08-23-2025 GFR/1.73 sq M.predicted among non-blacks MDRD (S/P/Bld) [Vol rate/Area] 83 mL/min/{1.73_m2} >60 [facility] Hematocrit Auto (Bld) [Volum e fraction]Ordered By: Trixie Pang on 08-23-2025 Hematocrit (Bld) [Volume fraction] 24.7 % Low 40-54 [facility] Hemoglobin measurementOrdere d By: Trixie Pang on 08-23-2025 Hemoglobin (Bld) [Mass/Vol] 7.6 g/dL Low 13.0-16.5 [facility] Immature granulocytes/100 WB C Auto (Bld)Ordered By: Trixie Pang on 08-23-2025 Immature granulocytes/100 WBC (Bld) 1.000 % High 0.0-0.9 [facility] MCV (mean corpuscular volume ) determinationOrdered By: Trixie Pang on 08-23-2025 MCV (RBC) [Entitic vol] 81.8 fL 80-94 [facility] Mean corpuscular hemoglobin (MCH) determinationOrdered By: Trixie Pang on 08-23-2025 MCH (RBC) [Entitic mass] 25.2 pg Low 27.0-32.0 [facility] Monocyte percentageOrdered B y: Trixie Pang on 08-23-2025 Monocytes/100 WBC (Bld) 14.8 % High 0-10 [facility] Neutrophil percentageOrdered By: Trixie Pang on 08-23-2025 Neutrophils/100 WBC (Bld) 51.5 % 47-70 [facility] Platelet countOrdered By: Bandar nicolreynaldo Pang on 08-23-2025 Platelets (Bld) [#/Vol] 220 10*3/uL 150-450 [facility] Potassium measurement (mass/ volume)Ordered By: Tirxie Pang on 08-23-2025 Potassium (Unsp spec) [Mass/Vol] 4.0 mmol/L 3.3-5.1 [facility] RBC Auto (Bld) [#/Vol]Ordere d By: Trixie Pang on 08-23-2025 RBC (Bld) [#/Vol] 3.02 10*6/uL Low 4.6-6.2 [facility] Serum creatinine measurement (mass/volume)Ordered By: Trixie Pang on 08-23-2025 Creatinine [Mass/Vol] 0.90 mg/dL 0.70-1.20 [facility] Serum glucose measurement (m ass/volume)Ordered By: Trixie Pang on 08-23-2025 Glucose [Mass/Vol] 95 mg/dL 70-99 [facility] Serum or plasma calcium donna urement (mass/volume)Ordered By: Trixie Pang on 08-23-2025 Calcium [Mass/Vol] 8.2 mg/dL 7.6-11.0 [facility] Serum or plasma urea nitroge n measurement (mass/volume)Ordered By: Trixie Pang on 08-23-2025 Urea nitrogen [Mass/Vol] 10 mg/dL 4-19 [facility] Sodium levelOrdered By: Ian Pang on 08-23-2025 Sodium [Moles/Vol] 137 mmol/L 133-145 [facility] White blood cell (WBC) count Ordered By: Trixie Pang on 08-23-2025 WBC (Bld) [#/Vol] 5.8 10*3/uL 4.4-11.0 [facility] Absolute lymphocyte countOrd ered By: Trixie Pang on 08-16-2025 Lymphocytes Auto (Unsp spec) [#/Vol] 1.56 10*3/uL 0.83-4.51 [facility] Anion gap in Serum or Plasma Ordered By: Trixie Pang on 08-16-2025 Anion gap [Moles/Vol] 10 mmol/L 5-15 [facility] Automated lymphocyte count a s percentage of total leukocytesOrdered By: Trixie Pang on 08-16-2025 Lymphocytes/100 WBC Auto (Unsp spec) 17.8 % Low 19-41 [facility] BUN/creatinine ratioOrdered By: Trixie Pang on 08-16-2025 Urea nitrogen/Creatinine [Mass ratio] 18.1 mg/mg 10-20 [facility] Basophil percentageOrdered B y: Trixie Pang on 08-16-2025 Basophils/100 WBC (Bld) 0.1 % 0-1 [facility] Bilirubin directOrdered By: Trixie Pang on 08-16-2025 Bilirubin.direct [Mass/Vol] 0.21 mg/dL 0.00-0.30 [facility] Bilirubin, totalOrdered By: Trixie Pang on 08-16-2025 Bilirubin [Mass/Vol] 0.39 mg/dL 0.00-1.30 [facility] Carbon dioxide, total [Moles /volume] in Central venous bloodOrdered By: Trixie Pang on 08-16-2025 CO2 [Moles/Vol] 25.7 mmol/L 21.0-32.0 [facility] Chloride assayOrdered By: Bandar Pang on 08-16-2025 Chloride [Moles/Vol] 99 mmol/L 98-108 [facility] Eosinophil percentageOrdered By: Trixie Pang on 08-16-2025 Eosinophils/100 WBC (Bld) 0.5 % 0-5 [facility] Erythrocyte distribution wid th ratioOrdered By: nicolwilliamsonfortunato Pang on 08-16-2025 Erythrocyte distribution width (RBC) [Ratio] 17.5 % High 11.6-14.6 [facility] Erythrocyte distribution wid th standard deviationOrdered By: nicolwilliamsonfortunato Pang on 08-16-2025 Erythrocyte distribution width (RBC) [Ratio] 51.3 fl High 35.1-43.9 [facility] Glomerular filtration rate ( GFR) estimation/1.73 sq m using serum, plasma, or whole bOrdered By: Trixie Pang on 08-16-2025 GFR/1.73 sq M.predicted among non-blacks MDRD (S/P/Bld) [Vol rate/Area] 67 mL/min/{1.73_m2} >60 [facility] Hematocrit Auto (Bld) [Volum e fraction]Ordered By: Trixie Pang on 08-16-2025 Hematocrit (Bld) [Volume fraction] 25.9 % Low 40-54 [facility] Hemoglobin measurementOrdere d By: Trixie Pang on 08-16-2025 Hemoglobin (Bld) [Mass/Vol] 7.7 g/dL Low 13.0-16.5 [facility] Immature granulocytes/100 WB C Auto (Bld)Ordered By: Trixie Pang on 08-16-2025 Immature granulocytes/100 WBC (Bld) 1.400 % High 0.0-0.9 [facility] MCV (mean corpuscular volume ) determinationOrdered By: Bandarnicolreynaldo Molinachristophecurtis on 08-16-2025 MCV (RBC) [Entitic vol] 82.2 fL 80-94 [facility] Mean corpuscular hemoglobin (MCH) determinationOrdered By: Bandarnicolreynaldo Molinachristophecurtis on 08-16-2025 MCH (RBC) [Entitic mass] 24.4 pg Low 27.0-32.0 [facility] Monocyte percentageOrdered B y: Trixie Pang on 08-16-2025 Monocytes/100 WBC (Bld) 13.7 % High 0-10 [facility] Neutrophil percentageOrdered By: Trixie Pang on 08-16-2025 Neutrophils/100 WBC (Bld) 66.5 % 47-70 [facility] No Panel InformationOrdered By: Bandarnicolreynaldo Molinachristophecurtis on 08-16-2025 226 U/L High <38 [facility] Platelet countOrdered By: Bandar al Molinashelia on 08-16-2025 Platelets (Bld) [#/Vol] 234 10*3/uL 150-450 [facility] Potassium measurement (mass/ volume)Ordered By: Bandarnicolmanifortunato Augustechristophecurtis on 08-16-2025 Potassium (Unsp spec) [Mass/Vol] 4.3 mmol/L 3.3-5.1 [facility] RBC Auto (Bld) [#/Vol]Ordere d By: Bandarnicolmanifortunato Augustechristophecurtis on 08-16-2025 RBC (Bld) [#/Vol] 3.15 10*6/uL Low 4.6-6.2 [facility] Serum creatinine measurement (mass/volume)Ordered By: Bandarmikaela Pang on 08-16-2025 Creatinine [Mass/Vol] 1.07 mg/dL 0.70-1.20 [facility] Serum globulin measurementOr dered By: Bandarmikaela Pang on 08-16-2025 Globulin (S) [Mass/Vol] 3.7 g/dL 2.2-4.2 [facility] Serum glucose measurement (m ass/volume)Ordered By: Ianmanifortunato Pang on 08-16-2025 Glucose [Mass/Vol] 103 mg/dL High 70-99 [facility] Serum or plasma alanine mccoy otransferase (ALT) measurementOrdered By: Bandarmikaela Pang on 08-16-2025 ALT [Catalytic activity/Vol] 179 U/L High <47 [facility] Serum or plasma albumin donna urement (mass/volume)Ordered By: Trixie Pang on 08-16-2025 Albumin [Mass/Vol] 2.7 g/dL Low 3.4-4.8 [facility] Serum or plasma alkaline salvador sphatase measurementOrdered By: Bandarmikaela Pang on 08-16-2025 ALP [Catalytic activity/Vol] 164 U/L High 40-129 [facility] Serum or plasma calcium donna urement (mass/volume)Ordered By: Trixie Pang on 08-16-2025 Calcium [Mass/Vol] 8.4 mg/dL 7.6-11.0 [facility] Serum or plasma urea nitroge n measurement (mass/volume)Ordered By: Bandarmikaela Pang on 08-16-2025 Urea nitrogen [Mass/Vol] 19 mg/dL 03-11 [facility] Sodium levelOrdered By: Bandarnicol reynaldo iBrd on 08-16-2025 Sodium [Moles/Vol] 134 mmol/L 133-145 [facility] Total proteinOrdered By: Jarred jaffefortunato Pang on 08-16-2025 Protein [Mass/Vol] 6.5 g/dL 5.9-8.4 [facility] White blood cell (WBC) count Ordered By: Bandarnicolmanifortunato Pang on 08-16-2025 WBC (Bld) [#/Vol] 8.8 10*3/uL 4.4-11.0 [facility] Basic Metabolic Profile (BMP )on 08-11-2025 BUN Normal 03-11 [facility] Comment on above: Result Comment: Canc ellwhitney via OM: Ordered Performed By: #### L 500.2500 ####[facility] [address] [place], [address] BUN/CRE Normal 10-20 [facility] Comment on above: Result Comment: Canc elled via OM: MD Ordered Performed By: #### L 500.2500 ####[facility] [address] [place], [address] Calcium Normal 7.6-11.0 [facility] Comment on above: Result Comment: Canc elled via OM: MD Ordered Performed By: #### L 500.2500 ####[facility] [address] [place], [address] CL Normal 98-108 [facility] Comment on above: Result Comment: Canc elled via OM: MD Ordered Performed By: #### L 500.2500 ####[facility] [address] [place], [address] CO2 Normal 21.0-32.0 [facility] Comment on above: Result Comment: Canc elled via OM: MD Ordered Performed By: #### L 500.2500 ####[facility] [address] [place], [address] CREAT,SERUM Normal 0.70-1.20 [facility] Comment on above: Result Comment: Canc elled via OM: MD Ordered Performed By: #### L 500.2500 ####[facility] [address] [place], [address] eGFR Normal >60 [facility] Comment on above: Result Comment: Canc elled via OM: MD Ordered Performed By: #### L 500.2500 ####[facility] [address] [place], [address] GAP Normal 5-15 [facility] Comment on above: Result Comment: Canc elled via OM: MD Ordered Performed By: #### L 500.2500 ####[facility] [address] [place], [address] GLU Normal 70-99 [facility] Comment on above: Result Comment: Canc elled via OM: MD Ordered Performed By: #### L 500.2500 ####[facility] [address] [place], [address] Potassium Normal 3.3-5.1 [facility] Comment on above: Result Comment: Canc elled via OM: MD Ordered Performed By: #### L 500.2500 ####[facility] [address] [place], [address] Basic Metabolic Profile (BMP) Normal 133-145 [facility] Comment on above: Result Comment: Canc elled via OM: MD Ordered Performed By: #### L 500.2500 ####[facility] [address] [place], [address] Culture, Blood (WB)on 2024 CUB No growth in 5 days. Normal [facility] Comment on above: Performed By: #### M 200.1000 ####[facility] [address] [place], [address] Echo Complete W/ Contraston 08-11-2025 Echo Complete W/ Contrast Normal [facility] Echocardiogram study reportO rdered By: Kenan Santamaria on 08-11-2025 Study report [facility] Work Phone: Basic Metabolic Profile (BMP )on 08-10-2025 BUN Normal -19 [facility] Comment on above: Result Comment: Canc elled via OM: Order cancelled - Patient discharged Performed By: #### L 500.2500, L100.0100 ####[facility] [address] [place], [address] BUN/CRE Normal 10-20 [facility] Comment on above: Result Comment: Canc elled via OM: Order cancelled - Patient discharged Performed By: #### L 500.2500, L100.0100 ####[facility] [address] [place], [address] Calcium Normal 7.6-11.0 [facility] Comment on above: Result Comment: Canc elled via OM: Order cancelled - Patient discharged Performed By: #### L 500.2500, L100.0100 ####[facility] [address] [place], [address] CL Normal 98-108 [facility] Comment on above: Result Comment: Canc elled via OM: Order cancelled - Patient discharged Performed By: #### L 500.2500, L100.0100 ####[facility] [address] [place], [address] CO2 Normal 21.0-32.0 [facility] Comment on above: Result Comment: Canc elled via OM: Order cancelled - Patient discharged Performed By: #### L 500.2500, L100.0100 ####[facility] [address] [place], [address] CREAT,SERUM Normal 0.70-1.20 [facility] Comment on above: Result Comment: Canc elled via OM: Order cancelled - Patient discharged Performed By: #### L 500.2500, L100.0100 ####[facility] [address] [place], [address] eGFR Normal >60 [facility] Comment on above: Result Comment: Canc elled via OM: Order cancelled - Patient discharged Performed By: #### L 500.2500, L100.0100 ####[facility] [address] [place], [address] GAP Normal 5-15 [facility] Comment on above: Result Comment: Canc elled via OM: Order cancelled - Patient discharged Performed By: #### L 500.2500, L100.0100 ####[facility] [address] [place], [address] GLU Normal 70-99 [facility] Comment on above: Result Comment: Canc elled via OM: Order cancelled - Patient discharged Performed By: #### L 500.2500, L100.0100 ####[facility] [address] [place], [address] Potassium Normal 3.3-5.1 [facility] Comment on above: Result Comment: Canc elled via OM: Order cancelled - Patient discharged Performed By: #### L 500.2500, L100.0100 ####[facility] [address] [place], [address] Basic Metabolic Profile (BMP) Normal 133-145 [facility] Comment on above: Result Comment: Canc elled via OM: Order cancelled - Patient discharged Performed By: #### L 500.2500, L100.0100 ####[facility] [address] [place], [address] CBC W/Diff, Automatedon 07-24 Absolute Neut Normal 2.0-7.7 [facility] [facility] Comment on above: Result Comment: Canc elled via OM: Order cancelled - Patient discharged Performed By: #### L 500.2500, L100.0100 ####[facility] [address] [place], [address] HCT Normal 40-54 [facility] Comment on above: Result Comment: Canc elled via OM: Order cancelled - Patient discharged Performed By: #### L 500.2500, L100.0100 ####[facility] [address] [place], [address] HGB Normal 13.0-16.5 [facility] Comment on above: Result Comment: Canc elled via OM: Order cancelled - Patient discharged Performed By: #### L 500.2500, L100.0100 ####[facility] [address] [place], [address] MCH Normal 27.0-32.0 [facility] Comment on above: Result Comment: Canc elled via OM: Order cancelled - Patient discharged Performed By: #### L 500.2500, L100.0100 ####[facility] [address] [place], [address] MCHC Normal 32-36 [facility] Comment on above: Result Comment: Canc elled via OM: Order cancelled - Patient discharged Performed By: #### L 500.2500, L100.0100 ####[facility] [address] [place], [address] MCV Normal 80-94 [facility] Comment on above: Result Comment: Canc elled via OM: Order cancelled - Patient discharged Performed By: #### L 500.2500, L100.0100 ####[facility] [address] [place], [address] NEUT% Normal 47-70 [facility] Comment on above: Result Comment: Canc elled via OM: Order cancelled - Patient discharged Performed By: #### L 500.2500, L100.0100 ####[facility] [address] [place], [address] PLT Normal 150-450 [facility] Comment on above: Result Comment: Canc elled via OM: Order cancelled - Patient discharged Performed By: #### L 500.2500, L100.0100 ####[facility] [address] [place], [address] RBC Normal 4.6-6.2 [facility] Comment on above: Result Comment: Canc elled via OM: Order cancelled - Patient discharged Performed By: #### L 500.2500, L100.0100 ####[facility] [address] [place], [address] RDW CV Normal 11.6-14.6 [facility] Comment on above: Result Comment: Canc elled via OM: Order cancelled - Patient discharged Performed By: #### L 500.2500, L100.0100 ####[facility] [address] [place], [address] RDW SD Normal 35.1-43.9 [facility] Comment on above: Result Comment: Canc elled via OM: Order cancelled - Patient discharged Performed By: #### L 500.2500, L100.0100 ####[facility] [address] [place], [address] WBC Normal 4.4-11.0 [facility] Comment on above: Result Comment: Canc elled via OM: Order cancelled - Patient discharged Performed By: #### L 500.2500, L100.0100 ####[facility] [address] [place], [address] Absolute lymphocyte countOrd ered By: Trixie Pang on 08-09-2025 Lymphocytes Auto (Unsp spec) [#/Vol] 1.61 10*3/uL 0.83-4.51 [facility] Anion gap in Serum or Plasma Ordered By: Trixie Pang on 08-09-2025 Anion gap [Moles/Vol] 10 mmol/L 5-15 [facility] Automated lymphocyte count a s percentage of total leukocytesOrdered By: Trixie Pang on 08-09-2025 Lymphocytes/100 WBC Auto (Unsp spec) 25.4 % 19-41 [facility] BUN/creatinine ratioOrdered By: Trixie Pang on 08-09-2025 Urea nitrogen/Creatinine [Mass ratio] 16.7 mg/mg 10- [facility] Basic Metabolic Profile (BMP )on 08-09-2025 BUN Normal 4-19 [facility] Comment on above: Result Comment: Canc elled via OM: MD Ordered Performed By: #### L 100.0100, L500.2500 ####[facility] [address] [place], [address] BUN/CRE Normal 10-20 [facility] Comment on above: Result Comment: Canc elled via OM: MD Ordered Performed By: #### L 100.0100, L500.2500 ####[facility] [address] [place], [address] Calcium Normal 7.6-11.0 [facility] Comment on above: Result Comment: Canc elled via OM: MD Ordered Performed By: #### L 100.0100, L500.2500 ####[facility] [address] [place], [address] CL Normal 98-108 [facility] Comment on above: Result Comment: Canc elled via OM: MD Ordered Performed By: #### L 100.0100, L500.2500 ####[facility] [address] [place], [address] CO2 Normal 21.0-32.0 [facility] Comment on above: Result Comment: Canc elled via OM: MD Ordered Performed By: #### L 100.0100, L500.2500 ####[facility] [address] [place], [address] CREAT,SERUM Normal 0.70-1.20 [facility] Comment on above: Result Comment: Canc elled via OM: MD Ordered Performed By: #### L 100.0100, L500.2500 ####[facility] [address] [place], [address] eGFR Normal >60 [facility] Comment on above: Result Comment: Canc elled via OM: MD Ordered Performed By: #### L 100.0100, L500.2500 ####[facility] [address] [place], [address] GAP Normal 5-15 [facility] Comment on above: Result Comment: Canc elled via OM: MD Ordered Performed By: #### L 100.0100, L500.2500 ####[facility] [address] [place], [address] GLU Normal 70-99 [facility] Comment on above: Result Comment: Canc elled via OM: MD Ordered Performed By: #### L 100.0100, L500.2500 ####[facility] [address] [place], [address] Potassium Normal 3.3-5.1 [facility] Comment on above: Result Comment: Canc elled via OM: MD Ordered Performed By: #### L 100.0100, L500.2500 ####[facility] [address] [place], [address] Basic Metabolic Profile (BMP) Normal 133-145 [facility] Comment on above: Result Comment: Canc elled via OM: MD Ordered Performed By: #### L 100.0100, L500.2500 ####[facility] [address] [place], [address] Basophil percentageOrdered B y: Trixie Pang on 08-09-2025 Basophils/100 WBC (Bld) 0.2 % 0-1 [facility] Bilirubin, totalOrdered By: Trixie Pang on 08-09-2025 Bilirubin [Mass/Vol] 0.37 mg/dL 0.00-1.30 [facility] CBC W/Diff, Automatedon 07-24 Absolute Neut Normal 2.0-7.7 [facility] Comment on above: Result Comment: Canc elled via OM: MD Ordered Performed By: #### L 100.0100, L500.2500 ####[facility] [address] [place], [address] HCT Normal 40-54 [facility] Comment on above: Result Comment: Canc elled via OM: MD Ordered Performed By: #### L 100.0100, L500.2500 ####[facility] [address] [place], [address] HGB Normal 13.0-16.5 [facility] Comment on above: Result Comment: Canc elled via OM: MD Ordered Performed By: #### L 100.0100, L500.2500 ####[facility] [address] [place], [address] MCH Normal 27.0-32.0 [facility] Comment on above: Result Comment: Canc elled via OM: MD Ordered Performed By: #### L 100.0100, L500.2500 ####[facility] [address] [place], [address] MCHC Normal 32-36 [facility] Comment on above: Result Comment: Canc elled via OM: MD Ordered Performed By: #### L 100.0100, L500.2500 ####[facility] [address] [place], [address] MCV Normal 80-94 [facility] Comment on above: Result Comment: Canc elled via OM: MD Ordered Performed By: #### L 100.0100, L500.2500 ####[facility] [address] [place], [address] NEUT% Normal 47-70 [facility] Comment on above: Result Comment: Canc elled via OM: MD Ordered Performed By: #### L 100.0100, L500.2500 ####[facility] [address] [place], [address] PLT Normal 150-450 [facility] Comment on above: Result Comment: Canc elled via OM: MD Ordered Performed By: #### L 100.0100, L500.2500 ####[facility] [address] [place], [address] RBC Normal 4.6-6.2 [facility] Comment on above: Result Comment: Canc elled via OM: MD Ordered Performed By: #### L 100.0100, L500.2500 ####[facility] [address] [place], [address] RDW CV Normal 11.6-14.6 [facility] Comment on above: Result Comment: Canc elled via OM: MD Ordered Performed By: #### L 100.0100, L500.2500 ####[facility] [address] [place], [address] RDW SD Normal 35.1-43.9 [facility] Comment on above: Result Comment: Canc elled via OM: MD Ordered Performed By: #### L 100.0100, L500.2500 ####[facility] [address] [place], [address] WBC Normal 4.4-11.0 [facility] Comment on above: Result Comment: Canc elled via OM: MD Ordered Performed By: #### L 100.0100, L500.2500 ####[facility] [address] [place], [address] Calculated very low density lipoprotein (VLDL) cholesterol measurementOrdered By: Trixie Pang on 08-09-2025 Calculated very low density lipoprotein (VLDL) cholesterol measurement 16 mg/dL 5-40 [facility] Carbon dioxide, total [Moles /volume] in Central venous bloodOrdered By: Trixie Pang on 08-09-2025 CO2 [Moles/Vol] 24.8 mmol/L 21.0-32.0 [facility] Chloride assayOrdered By: Bandar Pang on 08-09-2025 Chloride [Moles/Vol] 103 mmol/L 98-108 [facility] Eosinophil percentageOrdered By: Trixie Pang on 08-09-2025 Eosinophils/100 WBC (Bld) 0.6 % 0-5 [facility] Erythrocyte distribution wid th ratioOrdered By: Trixie Pang on 08-09-2025 Erythrocyte distribution width (RBC) [Ratio] 16.8 % High 11.6-14.6 [facility] Erythrocyte distribution wid th standard deviationOrdered By: Trixie Pang on 08-09-2025 Erythrocyte distribution width (RBC) [Ratio] 49.4 fl High 35.1-43.9 [facility] Glomerular filtration rate ( GFR) estimation/1.73 sq m using serum, plasma, or whole bOrdered By: Trixie Pang on 08-09-2025 GFR/1.73 sq M.predicted among non-blacks MDRD (S/P/Bld) [Vol rate/Area] 74 mL/min/{1.73_m2} >60 [facility] Hematocrit Auto (Bld) [Volum e fraction]Ordered By: Trixie Pang on 08-09-2025 Hematocrit (Bld) [Volume fraction] 26.7 % Low 40-54 [facility] Hemoglobin measurementOrdere d By: Trixie Pang on 08-09-2025 Hemoglobin (Bld) [Mass/Vol] 8.3 g/dL Low 13.0-16.5 [facility] Immature granulocytes/100 WB C Auto (Bld)Ordered By: Trixie Pang on 08-09-2025 Immature granulocytes/100 WBC (Bld) 4.300 % High 0.0-0.9 [facility] LDL calc ser/plasOrdered By: [facility] P[facility] on 08-09-2025 Cholesterol in LDL [Mass/Vol] 35 mg/dL [facility] MCV (mean corpuscular volume ) determinationOrdered By: Trixie Pang on 08-09-2025 MCV (RBC) [Entitic vol] 82.9 fL 80-94 [facility] Mean corpuscular hemoglobin (MCH) determinationOrdered By: Trixie Pang on 08-09-2025 MCH (RBC) [Entitic mass] 25.8 pg Low 27.0-32.0 [facility] Monocyte percentageOrdered B y: Trixie Pang on 08-09-2025 Monocytes/100 WBC (Bld) 17.3 % High 0-10 [facility] Neutrophil percentageOrdered By: Trixie Pang on 08-09-2025 Neutrophils/100 WBC (Bld) 52.2 % 47-70 [facility] No Panel InformationOrdered By: Trixie Pang on 08-09-2025 82 U/L High <38 [facility] Platelet countOrdered By: Bandar Pang on 08-09-2025 Platelets (Bld) [#/Vol] 245 10*3/uL 150-450 [facility] Potassium measurement (mass/ volume)Ordered By: Trixie Pang on 08-09-2025 Potassium (Unsp spec) [Mass/Vol] 4.3 mmol/L 3.3-5.1 [facility] RBC Auto (Bld) [#/Vol]Ordere d By: Trixie Pang on 08-09-2025 RBC (Bld) [#/Vol] 3.22 10*6/uL Low 4.6-6.2 [facility] Serum creatinine measurement (mass/volume)Ordered By: Trixie Pang on 08-09-2025 Creatinine [Mass/Vol] 0.98 mg/dL 0.70-1.20 [facility] Serum globulin measurementOr dered By: Trixie Pang on 08-09-2025 Globulin (S) [Mass/Vol] 3.7 g/dL 2.2-4.2 [facility] Serum glucose measurement (m ass/volume)Ordered By: Trixie Pang on 08-09-2025 Glucose [Mass/Vol] 92 mg/dL 70-99 [facility] Serum or plasma alanine mccoy otransferase (ALT) measurementOrdered By: Trixie Pang on 08-09-2025 ALT [Catalytic activity/Vol] 112 U/L High <47 [facility] Serum or plasma albumin donna urement (mass/volume)Ordered By: Trixie Pang on 08-09-2025 Albumin [Mass/Vol] 2.6 g/dL Low 3.4-4.8 [facility] Serum or plasma albumin/glob ulin mass ratioOrdered By: Trixie Pang on 08-09-2025 Albumin/Globulin [Mass ratio] 0.7 {ratio} Low 0.9-2.4 [facility] Serum or plasma alkaline salvador sphatase measurementOrdered By: Trixie Pang on 08-09-2025 ALP [Catalytic activity/Vol] 147 U/L High 40-129 [facility] Serum or plasma calcium donna urement (mass/volume)Ordered By: Trixie Molinachristophecurtis on 08-09-2025 Calcium [Mass/Vol] 8.6 mg/dL 7.6-11.0 [facility] Serum or plasma cholesterol in HDL measurement (mass/volume)Ordered By: Trixie Molinachristophecurtis on 08-09-2025 Cholesterol in HDL [Mass/Vol] 23 mg/dL Low >40 [facility] Serum or plasma cholesterol measurement (mass/volume)Ordered By: Trixie Molinachristophecurtis on 08-09-2025 Cholesterol [Mass/Vol] 74 mg/dL <201 [facility] Serum or plasma urea nitroge n measurement (mass/volume)Ordered By: Hunterfortunato Augustechristophecurtis on 08-09-2025 Urea nitrogen [Mass/Vol] 16 mg/dL 4-19 [facility] Sodium levelOrdered By: Ian reynaldo Molinachristophecurtis on 08-09-2025 Sodium [Moles/Vol] 138 mmol/L 133-145 [facility] Total proteinOrdered By: Jarred good Molinachristophecurtis on 08-09-2025 Protein [Mass/Vol] 6.3 g/dL 5.9-8.4 [facility] Vitamin B12 ser/plasOrdered By: Trixie Molinachristophecurtis on 08-09-2025 Cobalamin (Vitamin B12) [Mass/Vol] 1811 pg/mL High 180-914 [facility] White blood cell (WBC) count Ordered By: Trixie Pang on 08-09-2025 WBC (Bld) [#/Vol] 6.4 10*3/uL 4.4-11.0 [facility] Absolute lymphocyte countOrd ered By: Pedro Banegas on 08-08-2025 Lymphocytes Auto (Unsp spec) [#/Vol] 1.38 10*3/uL 0.83-4.51 [facility] Absolute neutrophil countOrd ered By: Pedro aBnegas on 08-08-2025 Neutrophils (Bld) [#/Vol] 5.1 10*3/uL 2.0-7.7 [facility] Anion gap in Serum or Plasma Ordered By: Pedro Banegas on 08-08-2025 Anion gap [Moles/Vol] 9 mmol/L 5-15 [facility] Automated lymphocyte count a s percentage of total leukocytesOrdered By: Pedromikayla Banegas on 08-08-2025 Lymphocytes/100 WBC Auto (Unsp spec) 17.1 % Low 19-41 [facility] BUN/creatinine ratioOrdered By: Pedrofacundo Banegas on 08-08-2025 Urea nitrogen/Creatinine [Mass ratio] 18.8 mg/mg 10- [facility] Basic Metabolic Profile (BMP )on 08-08-2025 BUN/CRE 18.8 RATIO Normal - [facility] Comment on above: Performed By: #### L 100.0100, L500.2500 ####[facility] [address] [place], [address] Calcium [Mass/Vol] 8.4 mg/dL Normal 7.6-11.0 [facility] Comment on above: Performed By: #### L 100.0100, L500.2500 ####[facility] [address] [place], [address] Chloride [Moles/Vol] 105 mmol/L Normal 98-108 [facility] Comment on above: Performed By: #### L 100.0100, L500.2500 ####[facility] [address] [place], [address] CO2 [Moles/Vol] 23.3 mmol/L Normal 21.0-32.0 [facility] Comment on above: Performed By: #### L 100.0100, L500.2500 ####[facility] [address] [place], [address] Creatinine [Mass/Vol] 1.04 mg/dL Normal 0.70-1.20 [facility] Comment on above: Performed By: #### L 100.0100, L500.2500 ####[facility] [address] [place], [address] ECRCL 55.85 ml/min Normal 50-250 [facility] Comment on above: Performed By: #### L 100.0100, L500.2500 ####[facility] [address] [place], [address] GAP 9 Normal 5-15 [facility] Comment on above: Performed By: #### L 100.0100, L500.2500 ####[facility] [address] [place], [address] GFR/1.73 sq M.predicted among non-blacks MDRD (S/P/Bld) [Vol rate/Area] 69 mL/min/{1.73_m2} Normal >60 [facility] Comment on above: Result Comment: mL/m in/1.73m2 CKD-EPI Creatinine Equation (2020) Performed By: #### L 100.0100, L500.2500 ####[facility] [address] [place], [address] Glucose [Mass/Vol] 97 mg/dL Normal 70-99 [facility] Comment on above: Performed By: #### L 100.0100, L500.2500 ####[facility] [address] [place], [address] Potassium [Moles/Vol] 4.6 mmol/L Normal 3.3-5.1 [facility] Comment on above: Performed By: #### L 100.0100, L500.2500 ####[facility] [address] [place], [address] Sodium [Moles/Vol] 137 mmol/L Normal 133-145 [facility] Comment on above: Performed By: #### L 100.0100, L500.2500 ####[facility] [address] [place], [address] Urea nitrogen [Mass/Vol] 20 mg/dL High 4-19 [facility] Comment on above: Performed By: #### L 100.0100, L500.2500 ####[facility] [address] [place], [address] Basophil percentageOrdered B y: Pedro Banegas on 08-08-2025 Basophils/100 WBC (Bld) 0.2 % 0-1 [facility] CBC W/Diff, Automatedon 07-24 Absolute Lymph 1.38 X10 3/uL Normal 0.83-4.51 [facility] Comment on above: Performed By: #### L 100.0100, L500.2500 ####[facility] [address] [place], [address] Absolute Neut 5.1 X10 3/uL Normal 2.0-7.7 [facility] Comment on above: Performed By: #### L 100.0100, L500.2500 ####[facility] [address] [place], [address] Basophils/100 WBC (Bld) 0.2 % Normal 0-1 [facility] Comment on above: Performed By: #### L 100.0100, L500.2500 ####[facility] [address] [place], [address] Eosinophils/100 WBC (Bld) 0.7 % Normal 0-5 [facility] Comment on above: Performed By: #### L 100.0100, L500.2500 ####[facility] [address] [place], [address] Erythrocyte distribution width (RBC) [Ratio] 16.7 % High 11.6-14.6 [facility] Comment on above: Performed By: #### L 100.0100, L500.2500 ####[facility] [address] [place], [address] Hematocrit (Bld) [Volume fraction] 27.3 % Low 40-54 [facility] Comment on above: Performed By: #### L 100.0100, L500.2500 ####[facility] [address] [place], [address] Hemoglobin (Bld) [Mass/Vol] 8.7 g/dL Low 13.0-16.5 [facility] Comment on above: Performed By: #### L 100.0100, L500.2500 ####[facility] [address] [place], [address] IG% 2.900 High 0.0-0.9 [facility] Comment on above: Result Comment: IG% - Immature Granulocytes (promyelocytes, myelocytes andmetamyelocytes) > 1% indicates that a LEFT SHIFT is Present. Performed By: #### L 100.0100, L500.2500 ####[facility] [address] [place], [address] Lymphocytes/100 WBC (Bld) 17.1 % Low 19-41 [facility] Comment on above: Performed By: #### L 100.0100, L500.2500 ####[facility] [address] [place], [address] MCH (RBC) [Entitic mass] 26.2 pg Low 27.0-32.0 [facility] Comment on above: Performed By: #### L 100.0100, L500.2500 ####[facility] [address] [place], [address] MCHC (RBC) [Mass/Vol] 31.9 g/dL Low 32-36 [facility] Comment on above: Performed By: #### L 100.0100, L500.2500 ####[facility] [address] [place], [address] MCV (RBC) [Entitic vol] 82.2 fL Normal 80-94 [facility] Comment on above: Performed By: #### L 100.0100, L500.2500 ####[facility] [address] [place], [address] Monocytes/100 WBC (Bld) 15.9 % High 0-10 [facility] Comment on above: Performed By: #### L 100.0100, L500.2500 ####[facility] [address] [place], [address] Neutrophils/100 WBC (Bld) 63.2 % Normal 47-70 [facility] Comment on above: Performed By: #### L 100.0100, L500.2500 ####[facility] [address] [place], [address] Nucleated RBC (Bld) [#/Vol] 0 10*3/uL Normal 0-5 [facility] Comment on above: Performed By: #### L 100.0100, L500.2500 ####[facility] [address] [place], [address] Platelet mean volume (Bld) [Entitic vol] 8.7 fL Normal 6.2-12.0 [facility] Comment on above: Performed By: #### L 100.0100, L500.2500 ####[facility] [address] [place], [address] Platelets (Bld) [#/Vol] 239 10*3/uL Normal 150-450 [facility] Comment on above: Performed By: #### L 100.0100, L500.2500 ####[facility] [address] [place], [address] RBC (Bld) [#/Vol] 3.32 10*6/uL Low 4.6-6.2 [facility] Comment on above: Performed By: #### L 100.0100, L500.2500 ####[facility] [address] [place], [address] RDW SD 49.8 fl High 35.1-43.9 [facility] Comment on above: Performed By: #### L 100.0100, L500.2500 ####[facility] [address] [place], [address] WBC (Bld) [#/Vol] 8.1 10*3/uL Normal 4.4-11.0 [facility] Comment on above: Performed By: #### L 100.0100, L500.2500 ####[facility] [address] [place], [address] Carbon dioxide, total [Moles /volume] in Central venous bloodOrdered By: Pedro Banegas on 08-08-2025 CO2 [Moles/Vol] 23.3 mmol/L 21.0-32.0 [facility] Chloride assayOrdered By: Alan Banegas on 08-08-2025 Chloride [Moles/Vol] 105 mmol/L 98-108 [facility] Eosinophil percentageOrdered By: Pedro Banegas on 08-08-2025 Eosinophils/100 WBC (Bld) 0.7 % 0-5 [facility] Erythrocyte distribution wid th ratioOrdered By: Pedro Banegas on 08-08-2025 Erythrocyte distribution width (RBC) [Ratio] 16.7 % High 11.6-14.6 [facility] Erythrocyte distribution wid th standard deviationOrdered By: Pedro Banegas on 08-08-2025 Erythrocyte distribution width (RBC) [Ratio] 49.8 fl High 35.1-43.9 [facility] Glomerular filtration rate ( GFR) estimation/1.73 sq m using serum, plasma, or whole bOrdered By: Pedro Banegas on 08-08-2025 GFR/1.73 sq M.predicted among non-blacks MDRD (S/P/Bld) [Vol rate/Area] 69 mL/min/{1.73_m2} >60 [facility] Comment on above: mL/min/1.73m2 CKD-EP I Creatinine Equation (2020) Hematocrit Auto (Bld) [Volum e fraction]Ordered By: Pedro Banegas on 08-08-2025 Hematocrit (Bld) [Volume fraction] 27.3 % Low 40-54 [facility] Hemoglobin measurementOrdere d By: Pedro Banegas on 08-08-2025 Hemoglobin (Bld) [Mass/Vol] 8.7 g/dL Low 13.0-16.5 [facility] Immature granulocytes/100 WB C Auto (Bld)Ordered By: Pedro Banegas on 08-08-2025 Immature granulocytes/100 WBC (Bld) 2.900 % High 0.0-0.9 [facility] Comment on above: IG% - Immature Granu locytes (promyelocytes, myelocytes and metamyelocytes) > 1% indicates that a LEFT SHIFT is Present. MCV (mean corpuscular volume ) determinationOrdered By: Pedro Banegas on 08-08-2025 MCV (RBC) [Entitic vol] 82.2 fL 80-94 [facility] Mean corpuscular hemoglobin (MCH) determinationOrdered By: Pedro Banegas on 08-08-2025 MCH (RBC) [Entitic mass] 26.2 pg Low 27.0-32.0 [facility] Mean corpuscular hemoglobin concentration (MCHC) determinationOrdered By: Pedro Banegas on 08-08-2025 MCHC (RBC) [Mass/Vol] 31.9 g/dL Low 32-36 [facility] Comment on above: Delta: 29.7 on 08/06 Mean platelet volume determi nationOrdered By: Pedro Banegas on 08-08-2025 Platelet mean volume (Bld) [Entitic vol] 8.7 fL 6.2-12.0 [facility] Monocyte percentageOrdered B y: Pedro Banegas on 08-08-2025 Monocytes/100 WBC (Bld) 15.9 % High 0-10 [facility] Neutrophil percentageOrdered By: Pedro Banegas on 08-08-2025 Neutrophils/100 WBC (Bld) 63.2 % 47-70 [facility] Nucleated red blood cell per centageOrdered By: Pedro Banegas on 08-08-2025 Nucleated RBC/100 WBC (Bld) [Ratio] 0 % 0-5 [facility] Platelet countOrdered By: Alan Banegas on 08-08-2025 Platelets (Bld) [#/Vol] 239 10*3/uL 150-450 [facility] Potassium measurement (mass/ volume)Ordered By: Pedro Banegas on 08-08-2025 Potassium (Unsp spec) [Mass/Vol] 4.6 mmol/L 3.3-5.1 [facility] RBC Auto (Bld) [#/Vol]Ordere d By: Pedro Banegas on 08-08-2025 RBC (Bld) [#/Vol] 3.32 10*6/uL Low 4.6-6.2 [facility] Serum creatinine measurement (mass/volume)Ordered By: Pedro Banegas on 08-08-2025 Creatinine [Mass/Vol] 1.04 mg/dL 0.70-1.20 [facility] Serum glucose measurement (m ass/volume)Ordered By: Pedro Banegas on 08-08-2025 Glucose [Mass/Vol] 97 mg/dL 70-99 [facility] Serum or plasma calcium donna urement (mass/volume)Ordered By: Pedro Banegas on 08-08-2025 Calcium [Mass/Vol] 8.4 mg/dL 7.6-11.0 [facility] Serum or plasma urea nitroge n measurement (mass/volume)Ordered By: Pedro Banegas on 08-08-2025 Urea nitrogen [Mass/Vol] 20 mg/dL High 4-19 [facility] Sodium levelOrdered By: Melita Banegas on 08-08-2025 Sodium [Moles/Vol] 137 mmol/L 133-145 [facility] White blood cell (WBC) count Ordered By: Pedro Banegas on 08-08-2025 WBC (Bld) [#/Vol] 8.1 10*3/uL 4.4-11.0 [facility] Electrocardiogram reportOrde red By: Marlon Santana on 08-07-2025 EKG study [facility] Cardiovascular Services [address] [place] [address] 12 Lead EKG 08/04/25 1203 MR#: [id number] Acct: [id number] Name: ELIAS SHAH Rep #:[id number] : 1940 85 From: Marlon sanchez [...] block Abnormal ECG Confirmed by Marlon Santana ([id number]), newspaper managing editor DONNIE SALINAS ([id number]) on 08/07/2025 1:08:31 PM Referred By: KD Confirmed By: Marlon Santana 08/07/25 1308 Date _ Marlon Santana MD CC: Dr. Ted Mtz MD; Dr. Pedro Banegas MD; Dr. Husam Khan MD ~ Signed [facility] Other Phone: Absolute lymphocyte countOrd ered By: Jim Adams on 08-06-2025 Lymphocytes Auto (Unsp spec) [#/Vol] 1.37 10*3/uL 0.83-4.51 [facility] Absolute neutrophil countOrd ered By: Jim Adams on 08-06-2025 Neutrophils (Bld) [#/Vol] 13.4 10*3/uL High 2.0-7.7 [facility] Anion gap in Serum or Plasma Ordered By: Jim Adams on 08-06-2025 Anion gap [Moles/Vol] 10 mmol/L 5-15 [facility] Automated lymphocyte count a s percentage of total leukocytesOrdered By: Jim Adams on 08-06-2025 Lymphocytes/100 WBC Auto (Unsp spec) 8.0 % Low -41 [facility] BUN/creatinine ratioOrdered By: Jim Adams on 08-06-2025 Urea nitrogen/Creatinine [Mass ratio] 24.3 mg/mg High 09-11 [facility] Basic Metabolic Profile (BMP )on 08-06-2025 BUN/CRE 24.3 RATIO High 10-20 [facility] Comment on above: Performed By: #### L 100.0100, L500.2500 ####[facility] [address] [place], [address] Calcium [Mass/Vol] 8.0 mg/dL Normal 7.6-11.0 [facility] Comment on above: Performed By: #### L 100.0100, L500.2500 ####[facility] [address] [place], [address] Chloride [Moles/Vol] 107 mmol/L Normal 98-108 [facility] Comment on above: Performed By: #### L 100.0100, L500.2500 ####[facility] [address] [place], [address] CO2 [Moles/Vol] 18.5 mmol/L Low 21.0-32.0 [facility] Comment on above: Performed By: #### L 100.0100, L500.2500 ####[facility] [address] [place], [address] Creatinine [Mass/Vol] 1.00 mg/dL Normal 0.70-1.20 [facility] Comment on above: Performed By: #### L 100.0100, L500.2500 ####[facility] [address] [place], [address] ECRCL 58.09 ml/min Normal 50-250 [facility] Comment on above: Performed By: #### L 100.0100, L500.2500 ####[facility] [address] [place], [address] GAP 10 Normal 5-15 [facility] Comment on above: Performed By: #### L 100.0100, L500.2500 ####[facility] [address] [place], [address] GFR/1.73 sq M.predicted among non-blacks MDRD (S/P/Bld) [Vol rate/Area] 73 mL/min/{1.73_m2} Normal >60 [facility] Comment on above: Result Comment: mL/m in/1.73m2 CKD-EPI Creatinine Equation (2020) Performed By: #### L 100.0100, L500.2500 ####[facility] [address] [place], [address] Glucose [Mass/Vol] 121 mg/dL High 70-99 [facility] Comment on above: Performed By: #### L 100.0100, L500.2500 ####[facility] [address] [place], [address] Potassium [Moles/Vol] 4.7 mmol/L Normal 3.3-5.1 [facility] Comment on above: Performed By: #### L 100.0100, L500.2500 ####[facility] [address] [place], [address] Sodium [Moles/Vol] 135 mmol/L Normal 133-145 [facility] Comment on above: Performed By: #### L 100.0100, L500.2500 ####[facility] [address] [place], [address] Urea nitrogen [Mass/Vol] 24 mg/dL High 4-19 [facility] Comment on above: Performed By: #### L 100.0100, L500.2500 ####[facility] [address] [place], [address] Basophil percentageOrdered B y: Jim Adams on 08-06-2025 Basophils/100 WBC (Bld) 0.2 % 0-1 [facility] Blood cultureOrdered By: Amy Banegas on 08-06-2025 Bacteria identified Cx Nom (Bld) No growth in 5 days. [facility] Blood manual differential co mment interpretation (narrative result)Ordered By: Jim Adams on 08-06-2025 Manual differential comment Carlin (Bld) [Interp] SCANNED [facility] Comment on above: MONOCYTOSIS PRESENT CBC W/Diff, Automatedon 07-24 SMEAR COMMENT SCANNED Normal [facility] Comment on above: Result Comment: MONO CYTOSIS PRESENT Performed By: #### L 100.0100, L500.2500 ####[facility] [address] [place], [address] Carbon dioxide, total [Moles /volume] in Central venous bloodOrdered By: Jim Adams on 08-06-2025 CO2 [Moles/Vol] 18.5 mmol/L Low 21.0-32.0 [facility] Chloride assayOrdered By: Alannah Adams on 08-06-2025 Chloride [Moles/Vol] 107 mmol/L 98-108 [facility] Eosinophil percentageOrdered By: Jim Adams on 08-06-2025 Eosinophils/100 WBC (Bld) 0.0 % 0-5 [facility] Erythrocyte distribution wid th ratioOrdered By: Jim Adams on 08-06-2025 Erythrocyte distribution width (RBC) [Ratio] 16.5 % High 11.6-14.6 [facility] Erythrocyte distribution wid th standard deviationOrdered By: Jim Adams on 08-06-2025 Erythrocyte distribution width (RBC) [Ratio] 49.5 fl High 35.1-43.9 [facility] Glomerular filtration rate ( GFR) estimation/1.73 sq m using serum, plasma, or whole bOrdered By: Jim Adams on 08-06-2025 GFR/1.73 sq M.predicted among non-blacks MDRD (S/P/Bld) [Vol rate/Area] 73 mL/min/{1.73_m2} >60 [facility] Comment on above: mL/min/1.73m2 CKD-EP I Creatinine Equation (2020) Hematocrit Auto (Bld) [Volum e fraction]Ordered By: Jim Adams on 08-06-2025 Hematocrit (Bld) [Volume fraction] 26.9 % Low 40-54 [facility] Hemoglobin measurementOrdere d By: Jim Adams on 08-06-2025 Hemoglobin (Bld) [Mass/Vol] 8.0 g/dL Low 13.0-16.5 [facility] Immature granulocytes/100 WB C Auto (Bld)Ordered By: Jim Adams on 08-06-2025 Immature granulocytes/100 WBC (Bld) 2.500 % High 0.0-0.9 [facility] Comment on above: IG% - Immature Granu locytes (promyelocytes, myelocytes and metamyelocytes) > 1% indicates that a LEFT SHIFT is Present. MCV (mean corpuscular volume ) determinationOrdered By: Jim Adams on 08-06-2025 MCV (RBC) [Entitic vol] 83.0 fL 80-94 [facility] Mean corpuscular hemoglobin (MCH) determinationOrdered By: Jim Adams on 08-06-2025 MCH (RBC) [Entitic mass] 24.7 pg Low 27.0-32.0 [facility] Mean corpuscular hemoglobin concentration (MCHC) determinationOrdered By: Jim Adams on 08-06-2025 MCHC (RBC) [Mass/Vol] 29.7 g/dL Low 32-36 [facility] Mean platelet volume determi nationOrdered By: Jim Adams on 08-06-2025 Platelet mean volume (Bld) [Entitic vol] 9.1 fL 6.2-12.0 [facility] Monocyte percentageOrdered B y: Jim Adams on 08-06-2025 Monocytes/100 WBC (Bld) 10.9 % High 0-10 [facility] Neutrophil percentageOrdered By: Jim Adams on 08-06-2025 Neutrophils/100 WBC (Bld) 78.4 % High 47-70 [facility] Nucleated red blood cell per centageOrdered By: Jim Adams on 08-06-2025 Nucleated RBC/100 WBC (Bld) [Ratio] 0 % 0-5 [facility] Platelet countOrdered By: Alannah Adams on 08-06-2025 Platelets (Bld) [#/Vol] 237 10*3/uL 150-450 [facility] Potassium measurement (mass/ volume)Ordered By: Jmi Adams on 08-06-2025 Potassium (Unsp spec) [Mass/Vol] 4.7 mmol/L 3.3-5.1 [facility] RBC Auto (Bld) [#/Vol]Ordere d By: Jim Adams on 08-06-2025 RBC (Bld) [#/Vol] 3.24 10*6/uL Low 4.6-6.2 [facility] Serum creatinine measurement (mass/volume)Ordered By: Jim Adams on 08-06-2025 Creatinine [Mass/Vol] 1.00 mg/dL 0.70-1.20 [facility] Serum glucose measurement (m ass/volume)Ordered By: Jim Adams on 08-06-2025 Glucose [Mass/Vol] 121 mg/dL High 70-99 [facility] Serum or plasma calcium donna urement (mass/volume)Ordered By: Jim Adams on 08-06-2025 Calcium [Mass/Vol] 8.0 mg/dL 7.6-11.0 [facility] Serum or plasma urea nitroge n measurement (mass/volume)Ordered By: Jim Adams on 08-06-2025 Urea nitrogen [Mass/Vol] 24 mg/dL High 4-19 [facility] Sodium levelOrdered By: Yazan Adams on 08-06-2025 Sodium [Moles/Vol] 135 mmol/L 133-145 [facility] White blood cell (WBC) count Ordered By: Jim Adams on 08-06-2025 WBC (Bld) [#/Vol] 17.1 10*3/uL High 4.4-11.0 [facility] Basic Metabolic Profile (BMP )on 08-05-2025 BUN/CRE 26.3 RATIO High 10-20 [facility] Comment on above: Performed By: #### L 100.0500, L500.2500 ####[facility] [address] [place], [address] Calcium [Mass/Vol] 7.9 mg/dL Normal 7.6-11.0 [facility] Comment on above: Performed By: #### L 100.0500, L500.2500 ####[facility] [address] [place], [address] Chloride [Moles/Vol] 106 mmol/L Normal 98-108 [facility] Comment on above: Performed By: #### L 100.0500, L500.2500 ####[facility] [address] [place], [address] CO2 [Moles/Vol] 21.1 mmol/L Normal 21.0-32.0 [facility] Comment on above: Performed By: #### L 100.0500, L500.2500 ####[facility] [address] [place], [address] Creatinine [Mass/Vol] 1.31 mg/dL High 0.70-1.20 [facility] Comment on above: Performed By: #### L 100.0500, L500.2500 ####[facility] [address] [place], [address] ECRCL 44.34 ml/min Low 50-250 [facility] Comment on above: Performed By: #### L 100.0500, L500.2500 ####[facility] [address] [place], [address] GAP 11 Normal 5-15 [facility] Comment on above: Performed By: #### L 100.0500, L500.2500 ####[facility] [address] [place], [address] GFR/1.73 sq M.predicted among non-blacks MDRD (S/P/Bld) [Vol rate/Area] 53 mL/min/{1.73_m2} Low >60 [facility] Comment on above: Result Comment: mL/m in/1.73m2 CKD-EPI Creatinine Equation (2020) Performed By: #### L 100.0500, L500.2500 ####[facility] [address] [place], [address] Glucose [Mass/Vol] 114 mg/dL High 70-99 [facility] Comment on above: Performed By: #### L 100.0500, L500.2500 ####[facility] [address] [place], [address] Potassium [Moles/Vol] 4.6 mmol/L Normal 3.3-5.1 [facility] Comment on above: Performed By: #### L 100.0500, L500.2500 ####[facility] [address] [place], [address] Sodium [Moles/Vol] 138 mmol/L Normal 133-145 [facility] Comment on above: Performed By: #### L 100.0500, L500.2500 ####[facility] [address] [place], [address] Urea nitrogen [Mass/Vol] 35 mg/dL High 4-19 [facility] Comment on above: Performed By: #### L 100.0500, L500.2500 ####[facility] [address] [place], [address] CBC-Complete Blood Cnt No Di ffon 08-05-2025 Erythrocyte distribution width (RBC) [Ratio] 16.8 % High 11.6-14.6 [facility] Comment on above: Performed By: #### L 100.0500, L500.2500 ####[facility] [address] [place], [address] Hematocrit (Bld) [Volume fraction] 27.9 % Low 40-54 [facility] Comment on above: Performed By: #### L 100.0500, L500.2500 ####[facility] [address] [place], [address] Hemoglobin (Bld) [Mass/Vol] 8.6 g/dL Low 13.0-16.5 [facility] Comment on above: Performed By: #### L 100.0500, L500.2500 ####[facility] [address] [place], [address] MCH (RBC) [Entitic mass] 25.9 pg Low 27.0-32.0 [facility] Comment on above: Performed By: #### L 100.0500, L500.2500 ####[facility] [address] [place], [address] MCHC (RBC) [Mass/Vol] 30.8 g/dL Low 32-36 [facility] Comment on above: Performed By: #### L 100.0500, L500.2500 ####[facility] [address] [place], [address] MCV (RBC) [Entitic vol] 84.0 fL Normal 80-94 [facility] Comment on above: Performed By: #### L 100.0500, L500.2500 ####[facility] [address] [place], [address] Platelet mean volume (Bld) [Entitic vol] 9.0 fL Normal 6.2-12.0 [facility] Comment on above: Performed By: #### L 100.0500, L500.2500 ####[facility] [address] [place], [address] Platelets (Bld) [#/Vol] 248 10*3/uL Normal 150-450 [facility] Comment on above: Performed By: #### L 100.0500, L500.2500 ####[facility] [address] [place], [address] RBC (Bld) [#/Vol] 3.32 10*6/uL Low 4.6-6.2 [facility] Comment on above: Performed By: #### L 100.0500, L500.2500 ####[facility] [address] [place], [address] RDW SD 49.7 fl High 35.1-43.9 [facility] Comment on above: Performed By: #### L 100.0500, L500.2500 ####[facility] [address] [place], [address] WBC (Bld) [#/Vol] 13.8 10*3/uL High 4.4-11.0 [facility] Comment on above: Performed By: #### L 100.0500, L500.2500 ####[facility] [address] [place], [address] Ferritinon 08-05-2025 Ferritin [Mass/Vol] 521 ng/mL High 37-417 [facility] Comment on above: Performed By: #### L 503.6030, L503.6550 ####[facility] [address] [place], [address] Iron measurement (mass/mass) Ordered By: Jim Adams on 08-05-2025 Iron (Unsp spec) [Mass/Mass] 14 ug/dL Low 65-175 [facility] Iron+Iron Binding Capacityon 08-05-2025 TIBC 149 ug/dL Low 250-450 [facility] Comment on above: Performed By: #### L 503.6030, L503.6550 ####[facility] [address] [place], [address] No Panel InformationOrdered By: Jim Adams on 08-05-2025 Unsaturated Iron Binding Capacity 135 ug/dL Low 228-428 [facility] 135 ug/dL Low 228-428 [facility] Serum or plasma ferritin yosef surement (mass/volume)Ordered By: Jim Adams on 09-13-2025 Ferritin [Mass/Vol] 521 ng/mL High 37-417 [facility] Serum or plasma iron saturat ion measurement (mass fraction)Ordered By: Jim Adasm on 08-05-2025 Iron saturation [Mass fraction] 9.4 % 9-55 [facility] Comment on above: Previous reported re sult: 9.6 %Edited by: SCOTT on 08/05/25:1732 AMENDED REPORT 08/05/25 1732 IRON SATURATION previously reported as: 9.6 % 12 Lead EKGon 08-04-2025 12 Lead EKG Normal [facility] Absolute lymphocyte countOrd ered By: Ted Mtz on 08-04-2025 Lymphocytes Auto (Unsp spec) [#/Vol] 0.96 10*3/uL 0.83-4.51 [facility] Absolute neutrophil countOrd ered By: Ted Mtz on 08-04-2025 Neutrophils (Bld) [#/Vol] 11.4 10*3/uL High 2.0-7.7 [facility] Anion gap in Serum or Plasma Ordered By: Ted Mtz on 08-04-2025 Anion gap [Moles/Vol] 11 mmol/L 5-15 [facility] Automated lymphocyte count a s percentage of total leukocytesOrdered By: Ted Mtz on 08-04-2025 Lymphocytes/100 WBC Auto (Unsp spec) 6.6 % Low 19-41 [facility] BUN/creatinine ratioOrdered By: Ted Mtz on 08-04-2025 Urea nitrogen/Creatinine [Mass ratio] 25.4 mg/mg High 10-20 [facility] Basophil percentageOrdered B y: Ted Mtz on 08-04-2025 Basophils/100 WBC (Bld) 0.1 % 0-1 [facility] Bilirubin Test strip Ql (U)O rdered By: Ted Mtz on 08-04-2025 Bilirubin Ql (U) Negative Negative [facility] Bilirubin, totalOrdered By: Ted Mtz on 08-04-2025 Bilirubin [Mass/Vol] 0.30 mg/dL 0.00-1.30 [facility] Blood manual differential co mment interpretation (narrative result)Ordered By: Ted Mtz on 08-04-2025 Manual differential comment Carlin (Bld) [Interp] COMMENT [facility] Comment on above: MONOCYTOSIS. CBC W/Diff, Automatedon 07-24 SMEAR COMMENT COMMENT Normal [facility] Comment on above: Result Comment: MONO CYTOSIS. Performed By: #### L 100.0100, L503.6005, L500.4050 ####[facility] [address] [place], [address] Carbon dioxide, total [Moles /volume] in Central venous bloodOrdered By: Ted Mtz on 08-04-2025 CO2 [Moles/Vol] 24.4 mmol/L 21.0-32.0 [facility] Chest 1 View (Portable)on Chest 1 View (Portable) Normal [facility] Chloride assayOrdered By: Juan Mtz on 08-04-2025 Chloride [Moles/Vol] 101 mmol/L 98-108 [facility] Comprehensive Metabolic Prof ilon 08-04-2025 Albumin [Mass/Vol] 2.7 g/dL Low 3.4-4.8 [facility] Comment on above: Performed By: #### L 100.0100, L503.6005, L500.4050 ####[facility] [address] [place], [address] Albumin/Globulin [Mass ratio] 0.7 {ratio} Low 0.9-2.4 [facility] Comment on above: Performed By: #### L 100.0100, L503.6005, L500.4050 ####[facility] [address] [place], [address] ALK PHOS 112 U/L Normal 40-129 [facility] Comment on above: Performed By: #### L 100.0100, L503.6005, L500.4050 ####[facility] [address] [place], [address] ALT [Catalytic activity/Vol] 83 U/L High <=46 [facility] Comment on above: Performed By: #### L 100.0100, L503.6005, L500.4050 ####[facility] [address] [place], [address] AST [Catalytic activity/Vol] 114 U/L High <=37 [facility] Comment on above: Performed By: #### L 100.0100, L503.6005, L500.4050 ####[facility] [address] [place], [address] Bilirubin [Mass/Vol] 0.30 mg/dL Normal 0.00-1.30 [facility] Comment on above: Performed By: #### L 100.0100, L503.6005, L500.4050 ####[facility] [address] [place], [address] BUN/CRE 25.4 RATIO High 10-20 [facility] Comment on above: Performed By: #### L 100.0100, L503.6005, L500.4050 ####[facility] [address] [place], [address] Calcium [Mass/Vol] 8.4 mg/dL Normal 7.6-11.0 [facility] Comment on above: Performed By: #### L 100.0100, L503.6005, L500.4050 ####[facility] [address] [place], [address] Chloride [Moles/Vol] 101 mmol/L Normal 98-108 [facility] Comment on above: Performed By: #### L 100.0100, L503.6005, L500.4050 ####[facility] [address] [place], [address] CO2 [Moles/Vol] 24.4 mmol/L Normal 21.0-32.0 [facility] Comment on above: Performed By: #### L 100.0100, L503.6005, L500.4050 ####[facility] [address] [place], [address] Creatinine [Mass/Vol] 1.53 mg/dL High 0.70-1.20 [facility] Comment on above: Performed By: #### L 100.0100, L503.6005, L500.4050 ####[facility] [address] [place], [address] ECRCL 37.98 ml/min Low 50-250 [facility] Comment on above: Performed By: #### L 100.0100, L503.6005, L500.4050 ####[facility] [address] [place], [address] GAP 11 Normal 5-15 [facility] Comment on above: Performed By: #### L 100.0100, L503.6005, L500.4050 ####[facility] [address] [place], [address] GFR/1.73 sq M.predicted among non-blacks MDRD (S/P/Bld) [Vol rate/Area] 44 mL/min/{1.73_m2} Low >60 [facility] Comment on above: Result Comment: mL/m in/1.73m2 CKD-EPI Creatinine Equation (2020) Performed By: #### L 100.0100, L503.6005, L500.4050 ####[facility] [address] [place], [address] Globulin (S) [Mass/Vol] 3.8 g/dL Normal 2.2-4.2 [facility] Comment on above: Performed By: #### L 100.0100, L503.6005, L500.4050 ####[facility] [address] [place], [address] Glucose [Mass/Vol] 158 mg/dL High 70-99 [facility] Comment on above: Performed By: #### L 100.0100, L503.6005, L500.4050 ####[facility] [address] [place], [address] Potassium [Moles/Vol] 4.3 mmol/L Normal 3.3-5.1 [facility] Comment on above: Performed By: #### L 100.0100, L503.6005, L500.4050 ####[facility] [address] [place], [address] Sodium [Moles/Vol] 137 mmol/L Normal 133-145 [facility] Comment on above: Performed By: #### L 100.0100, L503.6005, L500.4050 ####[facility] [address] [place], [address] T PROT 6.5 g/dL Normal 5.9-8.4 [facility] Comment on above: Performed By: #### L 100.0100, L503.6005, L500.4050 ####[facility] [address] [place], [address] Urea nitrogen [Mass/Vol] 39 mg/dL High 4-19 [facility] Comment on above: Performed By: #### L 100.0100, L503.6005, L500.4050 ####[facility] [address] [place], [address] Emergency Department Summary on 08-04-2025 Emergency Department Summary Normal [facility] Eosinophil percentageOrdered By: Ted Mtz on 08-04-2025 Eosinophils/100 WBC (Bld) 0.1 % 0-5 [facility] Erythrocyte distribution wid th ratioOrdered By: Ted Mtz on 08-04-2025 Erythrocyte distribution width (RBC) [Ratio] 16.8 % High 11.6-14.6 [facility] Erythrocyte distribution wid th standard deviationOrdered By: Ted Mtz on 08-04-2025 Erythrocyte distribution width (RBC) [Ratio] 49.2 fl High 35.1-43.9 [facility] Glomerular filtration rate ( GFR) estimation/1.73 sq m using serum, plasma, or whole bOrdered By: Ted Mtz on 08-04-2025 GFR/1.73 sq M.predicted among non-blacks MDRD (S/P/Bld) [Vol rate/Area] 44 mL/min/{1.73_m2} Low >60 [facility] Comment on above: mL/min/1.73m2 CKD-EP I Creatinine Equation (2020) H AND P Exam - Hospital[place] 08-04-2025 H&P Exam - Hospitalist Normal [facility] Hematocrit Auto (Bld) [Volum e fraction]Ordered By: Ted Mtz on 08-04-2025 Hematocrit (Bld) [Volume fraction] 28.7 % Low 40-54 [facility] Hemoglobin measurementOrdere d By: Ted Mtz on 08-04-2025 Hemoglobin (Bld) [Mass/Vol] 8.9 g/dL Low 13.0-16.5 [facility] Hyaline casts LM.LPF (Urine sed) [#/Area]Ordered By: Ted Mtz on 08-04-2025 Hyaline casts (Urine sed) [#/Area] 0 /[LPF] 0-5 [facility] Immature granulocytes/100 WB C Auto (Bld)Ordered By: Ted Mtz on 08-04-2025 Immature granulocytes/100 WBC (Bld) 2.400 % High 0.0-0.9 [facility] Comment on above: IG% - Immature Granu locytes (promyelocytes, myelocytes and metamyelocytes) > 1% indicates that a LEFT SHIFT is Present. Ketones Test strip Ql (U)Ord ered By: Ted Mtz on 08-04-2025 Ketones Ql (U) Negative Negative [facility] Laboratory - Chemistry and C hemistry - challengeOrdered By: Ted Mtz on 08-04-2025 AST [Catalytic activity/Vol] 114 U/L High <38 [facility] Lactic Acidon 08-04-2025 Lactate [Moles/Vol] 1.4 mmol/L Normal 0.0-2.0 [facility] Comment on above: Performed By: #### L 503.6005 ####[facility] [address] [place], [address] Lactate [Moles/Vol] 2.0 mmol/L Normal 0.0-2.0 [facility] Comment on above: Order Comment: Y Result Comment: Crit ical Result(s) Called at 08/04/2025-13:28 by Chauncey??Results read back by same. Performed By: #### L 100.0100, L503.6005, L500.4050 ####[facility] [address] [place], [address] Lactic acid measurementOrder ed By: Ted Mtz on 08-04-2025 Lactate [Moles/Vol] 1.4 mmol/L 0.0-2.0 [facility] Lactate [Moles/Vol] 2.0 mmol/L 0.0-2.0 [facility] Comment on above: Critical Result(s) C alled at 08/04/2025-13:28 by Brittnaie Doyle Results read back by same. MCV (mean corpuscular volume ) determinationOrdered By: Ted Mtz on 08-04-2025 MCV (RBC) [Entitic vol] 82.5 fL 80-94 [facility] Mean corpuscular hemoglobin (MCH) determinationOrdered By: Ted Mtz on 08-04-2025 MCH (RBC) [Entitic mass] 25.6 pg Low 27.0-32.0 [facility] Mean corpuscular hemoglobin concentration (MCHC) determinationOrdered By: Ted Mtz on 08-04-2025 MCHC (RBC) [Mass/Vol] 31.0 g/dL Low 32-36 [facility] Mean platelet volume determi nationOrdered By: Ted Mtz on 08-04-2025 Platelet mean volume (Bld) [Entitic vol] 9.0 fL 6.2-12.0 [facility] Microscopic analysis of urin e for red blood cells (RBC)Ordered By: Ted Mtz on 08-04-2025 Microscopic analysis of urine for red blood cells (RBC) 0-5 SEEN /hpf 0-5 [facility] Monocyte percentageOrdered B y: Ted Mtz on 08-04-2025 Monocytes/100 WBC (Bld) 12.6 % High 0-10 [facility] Mucus LM Ql (Urine sed)Order ed By: Ted Mtz on 08-04-2025 Mucus Ql (Urine sed) 0 SEEN /hpf [facility] Neutrophil percentageOrdered By: Ted Mtz on 08-04-2025 Neutrophils/100 WBC (Bld) 78.2 % High 47-70 [facility] Nitrite Test strip Ql (U)Ord ered By: Ted Mtz on 08-04-2025 Nitrite Ql (U) Negative Negative [facility] No Panel InformationOrdered By: Ted Mtz on 08-04-2025 114 U/L High <38 [facility] Nucleated red blood cell per centageOrdered By: Ted Mtz on 08-04-2025 Nucleated RBC/100 WBC (Bld) [Ratio] 0 % 0-5 [facility] Platelet countOrdered By: Juan Mtz on 08-04-2025 Platelets (Bld) [#/Vol] 234 10*3/uL 150-450 [facility] Potassium measurement (mass/ volume)Ordered By: Ted Mtz on 08-04-2025 Potassium (Unsp spec) [Mass/Vol] 4.3 mmol/L 3.3-5.1 [facility] Protein Test strip Ql (U)Ord ered By: Ted Mtz on 08-04-2025 Protein Ql (U) 30 mg/dl High Negative [facility] RBC Auto (Bld) [#/Vol]Ordere d By: Ted Mtz on 08-04-2025 RBC (Bld) [#/Vol] 3.48 10*6/uL Low 4.6-6.2 [facility] Serum creatinine measurement (mass/volume)Ordered By: Ted Mtz on 08-04-2025 Creatinine [Mass/Vol] 1.53 mg/dL High 0.70-1.20 [facility] Serum globulin measurementOr dered By: Ted Mtz on 08-04-2025 Globulin (S) [Mass/Vol] 3.8 g/dL 2.2-4.2 [facility] Serum glucose measurement (m ass/volume)Ordered By: Ted Mtz on 08-04-2025 Glucose [Mass/Vol] 158 mg/dL High 70-99 [facility] Serum or plasma alanine mccoy otransferase (ALT) measurementOrdered By: Ted Mtz on 08-04-2025 ALT [Catalytic activity/Vol] 83 U/L High <47 [facility] Serum or plasma albumin donna urement (mass/volume)Ordered By: Ted Mtz on 08-04-2025 Albumin [Mass/Vol] 2.7 g/dL Low 3.4-4.8 [facility] Serum or plasma albumin/glob ulin mass ratioOrdered By: Ted Mtz on 08-04-2025 Albumin/Globulin [Mass ratio] 0.7 {ratio} Low 0.9-2.4 [facility] Serum or plasma alkaline salvador sphatase measurementOrdered By: Ted Mtz on 08-04-2025 ALP [Catalytic activity/Vol] 112 U/L 40-129 [facility] Serum or plasma calcium donna urement (mass/volume)Ordered By: Ted Mtz on 08-04-2025 Calcium [Mass/Vol] 8.4 mg/dL 7.6-11.0 [facility] Serum or plasma urea nitroge n measurement (mass/volume)Ordered By: Ted Mtz on 08-04-2025 Urea nitrogen [Mass/Vol] 39 mg/dL High 4-19 [facility] Sodium levelOrdered By: Gopal Mtz on 08-04-2025 Sodium [Moles/Vol] 137 mmol/L 133-145 [facility] Squamous epithelial cells de tection in urine sediment by light microscopyOrdered By: Ted Mtz on 08-04-2025 Epithelial cells.squamous LM Ql (Urine sed) 0-5 SEEN /hpf 0-5 [facility] Total proteinOrdered By: Jamel Mtz on 08-04-2025 Protein [Mass/Vol] 6.5 g/dL 5.9-8.4 [facility] Urinalysis, Completeon 08-04 EPI,SQUAMOUS 0-5 SEEN Normal 0-5 [facility] Comment on above: Order Comment: MALATHI CTOR TO SPECIFY Performed By: #### L 400.0001 ####[facility] [address] [place], [address] RBC 0-5 SEEN Normal 0-5 [facility] Comment on above: Order Comment: MALATHI CTOR TO SPECIFY Performed By: #### L 400.0001 ####[facility] [address] [place], [address] WBC 0-5 SEEN Normal 0-5 [facility] Comment on above: Order Comment: MALATHI CTOR TO SPECIFY Performed By: #### L 400.0001 ####[facility] [address] [place], [address] CAST,FINE GRAN 0-5 SEEN Normal 0-5 [facility] Comment on above: Order Comment: MALATHI CTOR TO SPECIFY Performed By: #### L 400.0001 ####[facility] [address] [place], [address] CAST,HYALINE 0-5 SEEN Normal 0-5 [facility] Comment on above: Order Comment: MALATHI CTOR TO SPECIFY Performed By: #### L 400.0001 ####[facility] [address] [place], [address] BACTERIA 0 SEEN Normal None Seen [facility] Comment on above: Order Comment: MALATHI CTOR TO SPECIFY Performed By: #### L 400.0001 ####[facility] [address] [place], [address] Mucus Ql (Urine sed) 0 SEEN Normal [facility] Comment on above: Order Comment: MALATHI CTOR TO SPECIFY Performed By: #### L 400.0001 ####[facility] [address] [place], [address] Urine clarityOrdered By: Jamel Mtz on 08-04-2025 Clarity (U) Sl. Cloudy Clear [facility] Urine color determinationOrd ered By: Ted Mtz on 08-04-2025 Color (U) Yellow Yellow [facility] Urine glucose detectionOrder ed By: Ted Mtz on 08-04-2025 Glucose Ql (U) Normal mg/dl Normal [facility] Urine leukocyte esterase det ection by dipstickOrdered By: eTd Mtz on 08-04-2025 Leukocyte esterase Test strip Ql (U) Negative Negative [facility] Urine pHOrdered By: Ted Mtz on 08-04-2025 pH (U) 5.0 [pH] 5.0 - 8.0 [facility] Urine sediment bacteria coun t by microscopy (number/high power field)Ordered By: Ted Mtz on 08-04-2025 Bacteria LM.HPF (Urine sed) [#/Area] 0 /[HPF] None Seen [facility] Urine sediment fine granular cast count by microscopy (number/low power field)Ordered By: Ted Mtz on 08-04-2025 Fine Granular Casts LM.LPF (Urine sed) [#/Area] 0-5 SEEN /lpf 0-5 [facility] Urine specific gravity measu rementOrdered By: Ted Mtz on 08-04-2025 Specific gravity (U) [Rel density] 1.020 1.002-1.030 [facility] Urine urobilinogen measureme ntOrdered By: Ted Mtz on 08-04-2025 Urobilinogen Ql (U) Normal mg/dl Normal [facility] White blood cell (WBC) count Ordered By: Ted Mtz on 08-04-2025 WBC (Bld) [#/Vol] 14.6 10*3/uL High 4.4-11.0 [facility] White blood cell countOrdere d By: Ted Mtz on 08-04-2025 White blood cell count 0-5 SEEN /hpf 0-5 [facility] Operative Reporton Operative Report Normal [facility] MR/BMS.BVSon 08-01-2025 MR/BMS.BVS Normal [facility] Venous duplex ultrasound rep ortOrdered By: Channing Mckeon on 07-31-2025 US Vein [facility] [address] [place] [address] Venous Duplex US - Lalo Extrem 07/27/25 1314 MR#: [id number] Acct: [id number] Name: ELIAS SHAH Rep #:[id number] : 1940 85 From: Channing Soliman [...] Dictated: 07/27/25 1314 Date Transcribed: 07/31/25 1230 Charge Histotechnologist: Signed [facility] Work Phone: Anion gap in Serum or Plasma Ordered By: Ilana Medrano on 07-27-2025 Anion gap [Moles/Vol] 12 mmol/L - [facility] BUN/creatinine ratioOrdered By: Ilana Medrano on 07-27-2025 Urea nitrogen/Creatinine [Mass ratio] 16.9 mg/mg - [facility] Basic Metabolic Profile (BMP )on 07-27-2025 BUN/CRE 16.9 RATIO Normal - [facility] Comment on above: Performed By: #### L 100.0500, L500.2500 ####[facility] [address] [place], [address] Calcium [Mass/Vol] 9.1 mg/dL Normal 7.6-11.0 [facility] Comment on above: Performed By: #### L 100.0500, L500.2500 ####[facility] [address] [place], [address] Chloride [Moles/Vol] 103 mmol/L Normal 98-108 [facility] Comment on above: Performed By: #### L 100.0500, L500.2500 ####[facility] [address] [place], [address] CO2 [Moles/Vol] 25.9 mmol/L Normal 21.0-32.0 [facility] Comment on above: Performed By: #### L 100.0500, L500.2500 ####[facility] [address] [place], [address] Creatinine [Mass/Vol] 1.15 mg/dL Normal 0.70-1.20 [facility] Comment on above: Performed By: #### L 100.0500, L500.2500 ####[facility] [address] [place], [address] ECRCL 45.25 ml/min Low 50-250 [facility] Comment on above: Performed By: #### L 100.0500, L500.2500 ####[facility] [address] [place], [address] GAP 12 Normal 5-15 [facility] Comment on above: Performed By: #### L 100.0500, L500.2500 ####[facility] [address] [place], [address] GFR/1.73 sq M.predicted among non-blacks MDRD (S/P/Bld) [Vol rate/Area] 62 mL/min/{1.73_m2} Normal >60 [facility] Comment on above: Result Comment: mL/m in/1.73m2 CKD-EPI Creatinine Equation (2020) Performed By: #### L 100.0500, L500.2500 ####[facility] [address] [place], [address] Glucose [Mass/Vol] 156 mg/dL High 70-99 [facility] Comment on above: Performed By: #### L 100.0500, L500.2500 ####[facility] [address] [place], [address] Potassium [Moles/Vol] 4.1 mmol/L Normal 3.3-5.1 [facility] Comment on above: Performed By: #### L 100.0500, L500.2500 ####[facility] [address] [place], [address] Sodium [Moles/Vol] 140 mmol/L Normal 133-145 [facility] Comment on above: Performed By: #### L 100.0500, L500.2500 ####[facility] [address] [place], [address] Urea nitrogen [Mass/Vol] 19 mg/dL Normal 4-19 [facility] Comment on above: Performed By: #### L 100.0500, L500.2500 ####[facility] [address] [place], [address] CBC-Complete Blood Cnt No Di ffon 07-27-2025 Erythrocyte distribution width (RBC) [Ratio] 15.4 % High 11.6-14.6 [facility] Comment on above: Performed By: #### L 100.0500, L500.2500 ####[facility] [address] [place], [address] Hematocrit (Bld) [Volume fraction] 30.7 % Low 40-54 [facility] Comment on above: Performed By: #### L 100.0500, L500.2500 ####[facility] [address] [place], [address] Hemoglobin (Bld) [Mass/Vol] 9.3 g/dL Low 13.0-16.5 [facility] Comment on above: Performed By: #### L 100.0500, L500.2500 ####[facility] [address] [place], [address] MCH (RBC) [Entitic mass] 24.8 pg Low 27.0-32.0 [facility] Comment on above: Performed By: #### L 100.0500, L500.2500 ####[facility] [address] [place], [address] MCHC (RBC) [Mass/Vol] 30.3 g/dL Low 32-36 [facility] Comment on above: Performed By: #### L 100.0500, L500.2500 ####[facility] [address] [place], [address] MCV (RBC) [Entitic vol] 81.9 fL Normal 80-94 [facility] Comment on above: Performed By: #### L 100.0500, L500.2500 ####[facility] [address] [place], [address] Platelet mean volume (Bld) [Entitic vol] 8.6 fL Normal 6.2-12.0 [facility] Comment on above: Performed By: #### L 100.0500, L500.2500 ####[facility] [address] [place], [address] Platelets (Bld) [#/Vol] 282 10*3/uL Normal 150-450 [facility] Comment on above: Performed By: #### L 100.0500, L500.2500 ####[facility] [address] [place], [address] RBC (Bld) [#/Vol] 3.75 10*6/uL Low 4.6-6.2 [facility] Comment on above: Performed By: #### L 100.0500, L500.2500 ####[facility] [address] [place], [address] RDW SD 45.6 fl High 35.1-43.9 [facility] Comment on above: Performed By: #### L 100.0500, L500.2500 ####[facility] [address] [place], [address] WBC (Bld) [#/Vol] 9.5 10*3/uL Normal 4.4-11.0 [facility] Comment on above: Performed By: #### L 100.0500, L500.2500 ####[facility] [address] [place], [address] CTA Abd w/Runoff W/WO Contra ston 07-27-2025 CTA Abd w/Runoff W/WO Contrast Normal [facility] Carbon dioxide, total [Moles /volume] in Central venous bloodOrdered By: Ilana Medrano on 07-27-2025 CO2 [Moles/Vol] 25.9 mmol/L 21.0-32.0 [facility] Chloride assayOrdered By: Anatoly Medrano on 07-27-2025 Chloride [Moles/Vol] 103 mmol/L 98-108 [facility] Emergency Department Summary on 07-27-2025 Emergency Department Summary Normal [facility] Erythrocyte distribution wid th ratioOrdered By: Ilana Medrano on 07-27-2025 Erythrocyte distribution width (RBC) [Ratio] 15.4 % High 11.6-14.6 [facility] Erythrocyte distribution wid th standard deviationOrdered By: Ilana Medrano on 07-27-2025 Erythrocyte distribution width (RBC) [Ratio] 45.6 fl High 35.1-43.9 [facility] Glomerular filtration rate ( GFR) estimation/1.73 sq m using serum, plasma, or whole bOrdered By: Ilana Medrano on 07-27-2025 GFR/1.73 sq M.predicted among non-blacks MDRD (S/P/Bld) [Vol rate/Area] 62 mL/min/{1.73_m2} >60 [facility] Comment on above: mL/min/1.73m2 CKD-EP I Creatinine Equation (2020) Hematocrit Auto (Bld) [Volum e fraction]Ordered By: Ilana Medrano on 07-27-2025 Hematocrit (Bld) [Volume fraction] 30.7 % Low 40-54 [facility] Hemoglobin measurementOrdere d By: Ilana Medrano on 07-27-2025 Hemoglobin (Bld) [Mass/Vol] 9.3 g/dL Low 13.0-16.5 [facility] MCV (mean corpuscular volume ) determinationOrdered By: Ilana Medrano on 07-27-2025 MCV (RBC) [Entitic vol] 81.9 fL 80-94 [facility] Mean corpuscular hemoglobin (MCH) determinationOrdered By: Ilana Medrano on 07-27-2025 MCH (RBC) [Entitic mass] 24.8 pg Low 27.0-32.0 [facility] Mean corpuscular hemoglobin concentration (MCHC) determinationOrdered By: Ilana Medrano on 07-27-2025 MCHC (RBC) [Mass/Vol] 30.3 g/dL Low 32-36 [facility] Mean platelet volume determi nationOrdered By: Ilana Medrano on 07-27-2025 Platelet mean volume (Bld) [Entitic vol] 8.6 fL 6.2-12.0 [facility] Platelet countOrdered By: Anatoly Medrano on 07-27-2025 Platelets (Bld) [#/Vol] 282 10*3/uL 150-450 [facility] Potassium measurement (mass/ volume)Ordered By: Ilana Medrano on 07-27-2025 Potassium (Unsp spec) [Mass/Vol] 4.1 mmol/L 3.3-5.1 [facility] RBC Auto (Bld) [#/Vol]Ordere d By: Ilana Medrano on 07-27-2025 RBC (Bld) [#/Vol] 3.75 10*6/uL Low 4.6-6.2 [facility] Serum creatinine measurement (mass/volume)Ordered By: Ilana Medrano on 07-27-2025 Creatinine [Mass/Vol] 1.15 mg/dL 0.70-1.20 [facility] Serum glucose measurement (m ass/volume)Ordered By: Ilana Medrano on 07-27-2025 Glucose [Mass/Vol] 156 mg/dL High 70-99 [facility] Serum or plasma calcium donna urement (mass/volume)Ordered By: Ilana Medrano on 07-27-2025 Calcium [Mass/Vol] 9.1 mg/dL 7.6-11.0 [facility] Serum or plasma urea nitroge n measurement (mass/volume)Ordered By: Ilana Medrano on 07-27-2025 Urea nitrogen [Mass/Vol] 19 mg/dL 4-19 [facility] Sodium levelOrdered By: Anatolyedwige logan Emerit[employer] on 07-27-2025 Sodium [Moles/Vol] 140 mmol/L 133-145 [facility] Venous Duplex US - Lalo Extre mon 07-27-2025 Venous Duplex US - Lalo Extrem Normal [facility] White blood cell (WBC) count Ordered By: Ilana Medrano on 07-27-2025 WBC (Bld) [#/Vol] 9.5 10*3/uL 4.4-11.0 [facility] Influenza virus A and B and SARS-CoV-2 (COVID-19) and Respiratory syncytial virus RNAOrdered By: Husam Khan on 07-26-2025 SARS-CoV-2 (COVID-19) RNA TRICIA+probe Ql (Unsp spec) [facility] M100.678on 07-26-2025 M100.678 Pending SARS-CoV-2 (COVID 19) Negative INFLUENZA A Negative INFLUENZA B Negative RSV PCR Negative Normal [facility] Comment on above: Performed By: #### M 100.678 ####[facility] [address] [place], [place], [address] Cardiology Visit Reporton Cardiology Visit Report Normal [facility] Oncology Visit Reporton 04-25 Oncology Visit Report Normal [facility] DAMARIS + Protein Elect, Serumon 05-09-2025 Albumin [Mass/Vol] 3.1 g/dL Normal 2.9-4.4 [facility] Comment on above: Order Comment: NUNK Performed By: #### L 100.9950, L503.6550, L100.0100, L3100.3425 ####[facility] [address] [place], [place], [address] Albumin/Globulin [Mass ratio] 0.9 {ratio} Normal 0.7-1.7 [facility] Comment on above: Order Comment: NUNK Performed By: #### L 100.9950, L503.6550, L100.0100, L3100.3425 ####[facility] [address] [place], [address] QKTWE-2-UCCF 0.3 g/dL Normal 0.0-0.4 [facility] Comment on above: Order Comment: NUNK Performed By: #### L 100.9950, L503.6550, L100.0100, L3100.3425 ####[facility] [address] [place], [address] ZSUCC-6-JBBZ 1.0 g/dL Normal 0.4-1.0 [facility] Comment on above: Order Comment: NUNK Performed By: #### L 100.9950, L503.6550, L100.0100, L3100.3425 ####[facility] [address] [place], [address] BETA GLOBULIN 1.0 g/dL Normal 0.7-1.3 [facility] Comment on above: Order Comment: NUNK Performed By: #### L 100.9950, L503.6550, L100.0100, L3100.3425 ####[facility] [address] [place], [address] GAMMA GLOBULIN 1.5 g/dL Normal 0.4-1.8 [facility] Comment on above: Order Comment: NUNK Performed By: #### L 100.9950, L503.6550, L100.0100, L3100.3425 ####[facility] [address] [place], [address] Globulin (S) [Mass/Vol] 3.8 g/dL Normal 2.2-3.9 [facility] Comment on above: Order Comment: NUNK Performed By: #### L 100.9950, L503.6550, L100.0100, L3100.3425 ####[facility] [address] [place], [address] DAMARIS RESULT,S Comment Abnormal . [facility] Comment on above: Order Comment: NUNK Result Comment: Immu nofixation shows IgM monoclonal protein with kappalight chain specificity.Immunofixation shows IgM monoclonal protein with lambdalight chain specificity.Immunofixation shows IgG monoclonal protein with lambdalight chain specificity. Performed By: #### L 100.9950, L503.6550, L100.0100, L3100.3425 ####[facility] [address] [place], [address] IMMUNOGLOB A QN 472 mg/dL High 61-437 [facility] Comment on above: Order Comment: NUNK Performed By: #### L 100.9950, L503.6550, L100.0100, L3100.3425 ####[facility] [address] [place], [address] IMMUNOGLOB G QN 1475 mg/dL Normal 603-1613 [facility] Comment on above: Order Comment: NUNK Performed By: #### L 100.9950, L503.6550, L100.0100, L3100.3425 ####[facility] [address] [place], [address] IMMUNOGLOB M QN 179 mg/dL High 15-143 [facility] Comment on above: Order Comment: NUNK Performed By: #### L 100.9950, L503.6550, L100.0100, L3100.3425 ####[facility] [address] [place], [address] M-William Comment: Normal Not Observed [facility] Comment on above: Order Comment: NUNK Result Comment: Kings clonal IgM lambda = 0.2 g/dlMonoclonal IgG lambda = 0.2 g/dlMonoclonal IgM kappa = 0.1 g/dl Performed By: #### L 100.9950, L503.6550, L100.0100, L3100.3425 ####[facility] [address] [place], [address] NOTE: Comment Normal . [facility] Comment on above: Order Comment: NUNK Result Comment: Prot ein electrophoresis scan will follow via computer,mail, or data management consultant delivery.Performed at: [facility] [employer] [id number] Director: Alcides Alicea PhD, Phone: [phone] Performed By: #### L 100.9950, L503.6550, L100.0100, L3100.3425 ####[facility] [address] [place], [place], [id number] Protein [Mass/Vol] 6.9 g/dL Normal 6.0-8.5 [facility] Comment on above: Order Comment: NUNK Performed By: #### L 100.9950, L503.6550, L100.0100, L3100.3429 ####[facility] [address] [place], [address] Absolute lymphocyte countOrd ered By: Geoffrey Garza on 05-04-2025 Lymphocytes Auto (Unsp spec) [#/Vol] 2.54 10*3/uL 0.83-4.51 [facility] Absolute neutrophil countOrd ered By: Geoffrey Garza on 05-04-2025 Neutrophils (Bld) [#/Vol] 1.3 10*3/uL Low 2.0-7.7 [facility] Albumin Elph [Mass/Vol]Order ed By: Geoffrey Garza on 05-04-2025 Albumin [Mass/Vol] 3.1 g/dL 2.9-4.4 [facility] Anion gap in Serum or Plasma Ordered By: Geoffrey Garza on 05-04-2025 Anion gap [Moles/Vol] 9 mmol/L 5-15 [facility] Automated lymphocyte count a s percentage of total leukocytesOrdered By: Geoffrey Garza on 05-04-2025 Lymphocytes/100 WBC Auto (Unsp spec) 50.5 % High 19-41 [facility] BUN/creatinine ratioOrdered By: Geoffrey Garza on 05-04-2025 Urea nitrogen/Creatinine [Mass ratio] 11.4 mg/mg 10-20 [facility] Basophil percentageOrdered B y: Geoffrey Garza on 05-04-2025 Basophils/100 WBC (Bld) 0.4 % 0-1 [facility] Bilirubin, totalOrdered By: Geoffrey Garza on 05-04-2025 Bilirubin [Mass/Vol] 0.33 mg/dL 0.00-1.30 [facility] CBC W/Diff, Automatedon 04-23-2024 Absolute Lymph 2.54 X10 3/uL Normal 0.83-4.51 [facility] Comment on above: Performed By: #### L 100.9950, L503.6550, L100.0100, L3100.3425 ####[facility] [address] [place], [address] Absolute Neut 1.3 X10 3/uL Low 2.0-7.7 [facility] Comment on above: Performed By: #### L 100.9950, L503.6550, L100.0100, L3100.3425 ####[facility] [address] [place], [address] Basophils/100 WBC (Bld) 0.4 % Normal 0-1 [facility] Comment on above: Performed By: #### L 100.9950, L503.6550, L100.0100, L3100.3425 ####[facility] [address] [place], [address] Eosinophils/100 WBC (Bld) 1.4 % Normal 0-5 [facility] Comment on above: Performed By: #### L 100.9950, L503.6550, L100.0100, L3100.3425 ####[facility] [address] [place], [address] Erythrocyte distribution width (RBC) [Ratio] 15.1 % High 11.6-14.6 [facility] Comment on above: Performed By: #### L 100.9950, L503.6550, L100.0100, L3100.3425 ####[facility] [address] [place], [address] Hematocrit (Bld) [Volume fraction] 36.5 % Low 40-54 [facility] Comment on above: Performed By: #### L 100.9950, L503.6550, L100.0100, L3100.3425 ####[facility] [address] [place], [address] Hemoglobin (Bld) [Mass/Vol] 11.4 g/dL Low 13.0-16.5 [facility] Comment on above: Performed By: #### L 100.9950, L503.6550, L100.0100, L3100.3425 ####[facility] [address] [place], [address] IG% 0.800 Normal 0.0-0.9 [facility] Comment on above: Result Comment: IG% - Immature Granulocytes (promyelocytes, myelocytes andmetamyelocytes) > 1% indicates that a LEFT SHIFT is Present. Performed By: #### L 100.9950, L503.6550, L100.0100, L3100.3425 ####[facility] [address] [place], [address] Lymphocytes/100 WBC (Bld) 50.5 % High 19-41 [facility] Comment on above: Performed By: #### L 100.9950, L503.6550, L100.0100, L3100.3425 ####[facility] [address] [place], [address] MCH (RBC) [Entitic mass] 27.7 pg Normal 27.0-32.0 [facility] Comment on above: Performed By: #### L 100.9950, L503.6550, L100.0100, L3100.3425 ####[facility] [address] [place], [address] MCHC (RBC) [Mass/Vol] 31.2 g/dL Low 32-36 [facility] Comment on above: Performed By: #### L 100.9950, L503.6550, L100.0100, L3100.3425 ####[facility] [address] [place], [address] MCV (RBC) [Entitic vol] 88.8 fL Normal 80-94 [facility] Comment on above: Performed By: #### L 100.9950, L503.6550, L100.0100, L3100.3425 ####[facility] [address] [place], [address] Monocytes/100 WBC (Bld) 22.1 % High 0-10 [facility] Comment on above: Performed By: #### L 100.9950, L503.6550, L100.0100, L3100.3425 ####[facility] [address] [place], [address] Neutrophils/100 WBC (Bld) 24.8 % Low 47-70 [facility] Comment on above: Performed By: #### L 100.9950, L503.6550, L100.0100, L3100.3425 ####[facility] [address] [place], [address] Nucleated RBC (Bld) [#/Vol] 0 10*3/uL Normal 0-5 [facility] Comment on above: Performed By: #### L 100.9950, L503.6550, L100.0100, L3100.3425 ####[facility] [address] [place], [address] Platelet mean volume (Bld) [Entitic vol] 8.9 fL Normal 6.2-12.0 [facility] Comment on above: Performed By: #### L 100.9950, L503.6550, L100.0100, L3100.3425 ####[facility] [address] [place], [address] Platelets (Bld) [#/Vol] 210 10*3/uL Normal 150-450 [facility] Comment on above: Performed By: #### L 100.9950, L503.6550, L100.0100, L3100.3425 ####[facility] [address] [place], [address] RBC (Bld) [#/Vol] 4.11 10*6/uL Low 4.6-6.2 [facility] Comment on above: Performed By: #### L 100.9950, L503.6550, L100.0100, L3100.3425 ####[facility] [address] [place], [address] RDW SD 49.2 fl High 35.1-43.9 [facility] Comment on above: Performed By: #### L 100.9950, L503.6550, L100.0100, L3100.3425 ####[facility] [address] [place], [address] WBC (Bld) [#/Vol] 5.0 10*3/uL Normal 4.4-11.0 [facility] Comment on above: Performed By: #### L 100.9950, L503.6550, L100.0100, L3100.3425 ####[facility] [address] [place], [address] Carbon dioxide, total [Moles /volume] in Central venous bloodOrdered By: Geoffrey Garza on 05-04-2025 CO2 [Moles/Vol] 26.7 mmol/L 21.0-32.0 [facility] Chloride assayOrdered By: Cheri Garza on 05-04-2025 Chloride [Moles/Vol] 102 mmol/L 98-108 [facility] Comprehensive Metabolic Prof ilmary grace 05-04-2025 Albumin [Mass/Vol] 3.6 g/dL Normal 3.4-4.8 [facility] Comment on above: Order Comment: UNK Performed By: #### L 503.0106, L500.4050, L503.6030 ####[facility] [address] [place], [address] Albumin/Globulin [Mass ratio] 1.0 {ratio} Normal 0.9-2.4 [facility] Comment on above: Order Comment: UNK Performed By: #### L 503.0106, L500.4050, L503.6030 ####[facility] [address] [place], [address] ALK PHOS 96 U/L Normal 40-129 [facility] Comment on above: Order Comment: UNK Performed By: #### L 503.0106, L500.4050, L503.6030 ####[facility] [address] [place], [address] ALT [Catalytic activity/Vol] 6 U/L Normal <=46 [facility] Comment on above: Order Comment: UNK Performed By: #### L 503.0106, L500.4050, L503.6030 ####[facility] [address] [place], [address] AST [Catalytic activity/Vol] 20 U/L Normal <=37 [facility] Comment on above: Order Comment: UNK Performed By: #### L 503.0106, L500.4050, L503.6030 ####[facility] [address] [place], [address] Bilirubin [Mass/Vol] 0.33 mg/dL Normal 0.00-1.30 [facility] Comment on above: Order Comment: UNK Performed By: #### L 503.0106, L500.4050, L503.6030 ####[facility] [address] [place], [address] BUN/CRE 11.4 RATIO Normal 10-20 [facility] Comment on above: Order Comment: UNK Performed By: #### L 503.0106, L500.4050, L503.6030 ####[facility] [address] [place], [address] Calcium [Mass/Vol] 8.8 mg/dL Normal 7.6-11.0 [facility] Comment on above: Order Comment: UNK Performed By: #### L 503.0106, L500.4050, L503.6030 ####[facility] [address] [place], [address] Chloride [Moles/Vol] 102 mmol/L Normal 98-108 [facility] Comment on above: Order Comment: UNK Performed By: #### L 503.0106, L500.4050, L503.6030 ####[facility] [address] [place], [address] CO2 [Moles/Vol] 26.7 mmol/L Normal 21.0-32.0 [facility] Comment on above: Order Comment: UNK Performed By: #### L 503.0106, L500.4050, L503.6030 ####[facility] [address] [place], [address] Creatinine [Mass/Vol] 1.14 mg/dL Normal 0.70-1.20 [facility] Comment on above: Order Comment: UNK Performed By: #### L 503.0106, L500.4050, L503.6030 ####[facility] [address] [place], [address] ECRCL 49.94 ml/min Low 50-250 [facility] Comment on above: Order Comment: UNK Performed By: #### L 503.0106, L500.4050, L503.6030 ####[facility] [address] [place], [address] GAP 9 Normal 5-15 [facility] Comment on above: Order Comment: UNK Performed By: #### L 503.0106, L500.4050, L503.6030 ####[facility] [address] [place], [address] GFR/1.73 sq M.predicted among non-blacks MDRD (S/P/Bld) [Vol rate/Area] 62 mL/min/{1.73_m2} Normal >60 [facility] Comment on above: Order Comment: UNK Result Comment: mL/m in/1.73m2 CKD-EPI Creatinine Equation (2020) Performed By: #### L 503.0106, L500.4050, L503.6030 ####[facility] [address] [place], [address] Globulin (S) [Mass/Vol] 3.6 g/dL Normal 2.2-4.2 [facility] Comment on above: Order Comment: UNK Performed By: #### L 503.0106, L500.4050, L503.6030 ####[facility] [address] [place], [address] Glucose [Mass/Vol] 90 mg/dL Normal 70-99 [facility] Comment on above: Order Comment: UNK Performed By: #### L 503.0106, L500.4050, L503.6030 ####[facility] [address] [place], [address] Potassium [Moles/Vol] 4.6 mmol/L Normal 3.3-5.1 [facility] Comment on above: Order Comment: UNK Performed By: #### L 503.0106, L500.4050, L503.6030 ####[facility] [address] [place], [address] Sodium [Moles/Vol] 138 mmol/L Normal 133-145 [facility] Comment on above: Order Comment: UNK Performed By: #### L 503.0106, L500.4050, L503.6030 ####[facility] [address] [place], [address] T PROT 7.2 g/dL Normal 5.9-8.4 [facility] Comment on above: Order Comment: UNK Performed By: #### L 503.0106, L500.4050, L503.6030 ####[facility] [address] [place], [address] Urea nitrogen [Mass/Vol] 13 mg/dL Normal 4-19 [facility] Comment on above: Order Comment: UNK Performed By: #### L 503.0106, L500.4050, L503.6030 ####[facility] [address] [place], [address] Eosinophil percentageOrdered By: [facility] on 05-[facility]-2025 Eosinophils/100 WBC (Bld) 1.4 % 0-5 [facility] Erythrocyte distribution wid th ratioOrdered By: Geoffrey Garza on 05-04-2025 Erythrocyte distribution width (RBC) [Ratio] 15.1 % High 11.6-14.6 [facility] Erythrocyte distribution wid th standard deviationOrdered By: [facility] Hospital[facility] on 05-04-2025 Erythrocyte distribution width (RBC) [Ratio] 49.2 fl High 35.1-43.9 [facility] Ferritinon 05-04-2025 Ferritin [Mass/Vol] 78 ng/mL Normal 37-417 [facility] Comment on above: Performed By: #### L 100.9950, L503.6550, L100.0100, L3100.3425 ####[facility] [address] [place], [address] Glomerular filtration rate ( GFR) estimation/1.73 sq m using serum, plasma, or whole bOrdered By: Geoffrey Garza on 05-04-2025 GFR/1.73 sq M.predicted among non-blacks MDRD (S/P/Bld) [Vol rate/Area] 62 mL/min/{1.73_m2} >60 [facility] Comment on above: mL/min/1.73m2 CKD-EP I Creatinine Equation (2020) Hematocrit Auto (Bld) [Volum e fraction]Ordered By: Geoffrey Garza on 05-04-2025 Hematocrit (Bld) [Volume fraction] 36.5 % Low 40-54 [facility] Hemoglobin measurementOrdere d By: Geoffrey Garza on 05-04-2025 Hemoglobin (Bld) [Mass/Vol] 11.4 g/dL Low 13.0-16.5 [facility] Immature granulocytes/100 WB C Auto (Bld)Ordered By: Geoffrey Garza on 05-04-2025 Immature granulocytes/100 WBC (Bld) 0.800 % 0.0-0.9 [facility] Comment on above: IG% - Immature Granu locytes (promyelocytes, myelocytes and metamyelocytes) > 1% indicates that a LEFT SHIFT is Present. Interpretation of serum or p lasma protein pattern by immunofixation (narrative resultOrdered By: Geoffrey Garza on 05-04-2025 Protein Fractions Immunofixation Carlin [Interp] Comment: g/dL Not Observed [facility] Comment on above: Monoclonal IgM lambd a = 0.2 g/dlMonoclonal IgG lambda = 0.2 g/dlMonoclonal IgM kappa = 0.1 g/dl Iron measurement (mass/mass) Ordered By: Geoffrey Garza on 05-04-2025 Iron (Unsp spec) [Mass/Mass] 34 ug/dL Low 65-175 [facility] Iron+Iron Binding Capacityon 05-04-2025 TIBC 222 ug/dL Low 250-450 [facility] Comment on above: Order Comment: UNK Performed By: #### L 503.0106, L500.4050, L503.6030 ####[facility] [address] [place], [address] Laboratory - Chemistry and C hemistry - challengeOrdered By: Geoffrey Garza on 05-04-2025 AST [Catalytic activity/Vol] 20 U/L <38 [facility] MCV (mean corpuscular volume ) determinationOrdered By: Geoffrey Garza on 05-04-2025 MCV (RBC) [Entitic vol] 88.8 fL 80-94 [facility] Mean corpuscular hemoglobin (MCH) determinationOrdered By: Geoffrey Garza on 05-04-2025 MCH (RBC) [Entitic mass] 27.7 pg 27.0-32.0 [facility] Mean corpuscular hemoglobin concentration (MCHC) determinationOrdered By: Geoffrey Garza on 05-04-2025 MCHC (RBC) [Mass/Vol] 31.2 g/dL Low 32-36 [facility] Mean platelet volume determi nationOrdered By: Geoffrey Garza on 05-04-2025 Platelet mean volume (Bld) [Entitic vol] 8.9 fL 6.2-12.0 [facility] Monocyte percentageOrdered B y: Geoffrey Garza on 05-04-2025 Monocytes/100 WBC (Bld) 22.1 % High 0-10 [facility] Neutrophil percentageOrdered By: Geoffrey Garza on 05-04-2025 Neutrophils/100 WBC (Bld) 24.8 % Low 47-70 [facility] No Panel InformationOrdered By: Geoffrey Garza on 05-04-2025 Addendum Document Comment . [facility] Comment on above: Protein electrophore sis scan will follow via computer,mail, or data management consultant delivery.Performed at: [facility] [address] [id number] Director: Alcides Alicea PhD, Phone: [phone] Unsaturated Iron Binding Capacity 188 ug/dL Low 228-428 [facility] 20 U/L <38 [facility] 188 ug/dL Low 228-428 [facility] Nucleated red blood cell per centageOrdered By: Geoffrey Garza on 05-04-2025 Nucleated RBC/100 WBC (Bld) [Ratio] 0 % 0-5 [facility] Platelet countOrdered By: Cheri Garza on 05-04-2025 Platelets (Bld) [#/Vol] 210 10*3/uL 150-450 [facility] Potassium measurement (mass/ volume)Ordered By: Geoffrey Garza on 05-04-2025 Potassium (Unsp spec) [Mass/Vol] 4.6 mmol/L 3.3-5.1 [facility] RBC Auto (Bld) [#/Vol]Ordere d By: Geoffrey Garza on 05-04-2025 RBC (Bld) [#/Vol] 4.11 10*6/uL Low 4.6-6.2 [facility] Retic Panelon 05-04-2025 IM RET FRACTION 25.40 High 3.00-15.90 [facility] Comment on above: Performed By: #### L 100.9950, L503.6550, L100.0100, L3100.3425 ####[facility] [address] [place], [address] RET-HE 28.5 pg Low 30-35 [facility] Comment on above: Performed By: #### L 100.9950, L503.6550, L100.0100, L3100.3425 ####[facility] [address] [place], [address] Retic Count 2.45 High 0.5-1.5 [facility] Comment on above: Performed By: #### L 100.9950, L503.6550, L100.0100, L3100.3425 ####[facility] [address] [place], [address] Reticulocyte hemoglobin equi valent (RET-He) measurementOrdered By: Geoffrey Garza on 05-04-2025 Hemoglobin (Reticulocytes) [Entitic mass] 28.5 pg Low 30-35 [facility] Reticulocytes Auto (Bld) [#/ Vol]Ordered By: Geoffrey Garza on 05-04-2025 Reticulocytes/100 RBC (Bld) 2.45 % High 0.5-1.5 [facility] Serum creatinine measurement (mass/volume)Ordered By: Geoffrey Garza on 05-04-2025 Creatinine [Mass/Vol] 1.14 mg/dL 0.70-1.20 [facility] Serum globulin measurement ( mass/volume)Ordered By: Geoffrey Garza on 05-04-2025 Globulin (S) [Mass/Vol] 3.8 g/dL 2.2-3.9 [facility] Serum glucose measurement (m ass/volume)Ordered By: Geoffrey Garza on 05-04-2025 Glucose [Mass/Vol] 90 mg/dL 70-99 [facility] Serum or plasma IgA measurem ent (mass/volume)Ordered By: Geoffrey Garza on 05-04-2025 IgA [Mass/Vol] 472 mg/dL High 61-437 [facility] Serum or plasma IgG measurem ent (mass/volume)Ordered By: Geoffrey Garza on 05-04-2025 IgG [Mass/Vol] 1475 mg/dL 603-1613 [facility] Serum or plasma alanine mccoy otransferase (ALT) measurementOrdered By: Geoffrey Garza on 05-04-2025 ALT [Catalytic activity/Vol] 6 U/L <47 [facility] Serum or plasma albumin donna urement (mass/volume)Ordered By: Geoffrey Garza on 05-04-2025 Albumin [Mass/Vol] 3.6 g/dL 3.4-4.8 [facility] Serum or plasma albumin/glob ulin mass ratioOrdered By: Geoffrey Garza on 05-04-2025 Albumin/Globulin [Mass ratio] 1.0 {ratio} 0.9-2.4 [facility] Serum or plasma alkaline salvador sphatase measurementOrdered By: Geoffrey Garza on 05-04-2025 ALP [Catalytic activity/Vol] 96 U/L 40-129 [facility] Serum or plasma alpha 1 glob ulin measurement by electrophoresis (mass/volume)Ordered By: Geoffrey Garza on 05-04-2025 Alpha 1 globulin Elph [Mass/Vol] 0.3 g/dL 0.0-0.4 [facility] Alpha 1 globulin Elph [Mass/Vol] 1.0 g/dL 0.4-1.0 [facility] Serum or plasma beta globuli n measurement by electrophoresis (mass/volume)Ordered By: Geoffrey Garza on 05-04-2025 Beta globulin Elph [Mass/Vol] 1.0 g/dL 0.7-1.3 [facility] Serum or plasma calcium donna urement (mass/volume)Ordered By: Geoffrey Garza on 05-04-2025 Calcium [Mass/Vol] 8.8 mg/dL 7.6-11.0 [facility] Serum or plasma ferritin yosef surement (mass/volume)Ordered By: Geoffrey Garza on 05-04-2025 Ferritin [Mass/Vol] 78 ng/mL 37-417 [facility] Serum or plasma gamma globul in measurement by electrophoresis (mass/volume)Ordered By: Geoffrey Garza on 05-04-2025 Gamma globulin Elph [Mass/Vol] 1.5 g/dL 0.4-1.8 [facility] Serum or plasma immunoelectr ophoresis interpretation (nominal result)Ordered By: Geoffrey Garza on 05-04-2025 Interpretation IEP [Interp] Comment High . [facility] Comment on above: Immunofixation shows IgM monoclonal protein with kappalight chain specificity.Immunofixation shows IgM monoclonal protein with lambdalight chain specificity.Immunofixation shows IgG monoclonal protein with lambdalight chain specificity. Serum or plasma iron saturat ion measurement (mass fraction)Ordered By: Geoffrey Garza on 05-04-2025 Iron saturation [Mass fraction] 15.0 % 9-55 [facility] Comment on above: Previous reported re sult: 15.0 %Edited by: RADAMES on 05/04/25:1655 Serum or plasma protein donna urement (mass/volume)Ordered By: Geoffrey Garza on 05-04-2025 Protein [Mass/Vol] 6.9 g/dL 6.0-8.5 [facility] Serum or plasma urea nitroge n measurement (mass/volume)Ordered By: Geoffrey Garza on 05-04-2025 Urea nitrogen [Mass/Vol] 13 mg/dL 4-19 [facility] Sodium levelOrdered By: Leroy Garza on 05-04-2025 Sodium [Moles/Vol] 138 mmol/L 133-145 [facility] Total proteinOrdered By: Polo Koehlerbrie on 05-04-2025 Protein [Mass/Vol] 7.2 g/dL 5.9-8.4 [facility] Vitamin B12on 05-04-2025 Cobalamin (Vitamin B12) [Mass/Vol] 1485 pg/mL High 180-914 [facility] Comment on above: Performed By: #### L 503.0106, L500.4050, L503.6030 ####[facility] [address] [place], [address] Vitamin B12 ser/plasOrdered By: Geoffrey Greg on 05-04-2025 Cobalamin (Vitamin B12) [Mass/Vol] 1485 pg/mL High 180-914 [facility] White blood cell (WBC) count Ordered By: Geoffrey Greg on 05-04-2025 WBC (Bld) [#/Vol] 5.0 10*3/uL 4.4-11.0 [facility] Absolute lymphocyte countOrd ered By: Husam Khan on 12-29-2024 Lymphocytes Auto (Unsp spec) [#/Vol] 2.27 10*3/uL 0.83-4.51 [facility] Absolute neutrophil countOrd ered By: Husam Khan on 12-29-2024 Neutrophils (Bld) [#/Vol] 1.2 10*3/uL Low 2.0-7.7 [facility] Albumin to globulin ratioOrd ered By: Husam Khan on 12-29-2024 Albumin/Globulin [Mass ratio] 0.7 {ratio} Low 0.9-2.4 [facility] Automated lymphocyte count a s percentage of total leukocytesOrdered By: Husam Khan on 12-29-2024 Lymphocytes/100 WBC Auto (Unsp spec) 53.0 % High 19-41 [facility] Basophil percentageOrdered B y: Husam Khan on 12-29-2024 Basophils/100 WBC (Bld) 0.2 % 0-1 [facility] Bilirubin, totalOrdered By: Hsuam Khan on 12-29-2024 Bilirubin [Mass/Vol] 0.40 mg/dL 0.20-1.00 [facility] Comment on above: For patients on eltr ombopag therapy, use of Dimension Crawley TBIL is not recommended. Blood urea nitrogen (BUN)/cr eatinine ratioOrdered By: Husam Khan on 12-29-2024 Urea nitrogen/Creatinine [Mass ratio] 9.6 mg/mg Low 10-20 [facility] CBC W/Diff, Automatedon Absolute Lymph 2.27 X10 3/uL Normal 0.83-4.51 [facility] Comment on above: Performed By: #### L 100.0100, L500.4050, L506.1000, L501.9520 ####[facility] [address] [place], [address] Absolute Neut 1.2 X10 3/uL Low 2.0-7.7 [facility] Comment on above: Performed By: #### L 100.0100, L500.4050, L506.1000, L501.9520 ####[facility] [address] [place], [address] Basophils/100 WBC (Bld) 0.2 % Normal 0-1 [facility] Comment on above: Performed By: #### L 100.0100, L500.4050, L506.1000, L501.9520 ####[facility] [address] [place], [address] Eosinophils/100 WBC (Bld) 1.6 % Normal 0-5 [facility] Comment on above: Performed By: #### L 100.0100, L500.4050, L506.1000, L501.9520 ####[facility] [address] [place], [address] Erythrocyte distribution width (RBC) [Ratio] 15.0 % High 11.6-14.6 [facility] Comment on above: Performed By: #### L 100.0100, L500.4050, L506.1000, L501.9520 ####[facility] [address] [place], [address] Hematocrit (Bld) [Volume fraction] 38.9 % Low 40-54 [facility] Comment on above: Performed By: #### L 100.0100, L500.4050, L506.1000, L501.9520 ####[facility] [address] [place], [address] Hemoglobin (Bld) [Mass/Vol] 12.3 g/dL Low 13.0-16.5 [facility] Comment on above: Performed By: #### L 100.0100, L500.4050, L506.1000, L501.9520 ####[facility] [address] [place], [address] IG% 0.500 Normal 0.0-0.9 [facility] Comment on above: Result Comment: IG% - Immature Granulocytes (promyelocytes, myelocytes andmetamyelocytes) > 1% indicates that a LEFT SHIFT is Present. Performed By: #### L 100.0100, L500.4050, L506.1000, L501.9520 ####[facility] [address] [place], [address] Lymphocytes/100 WBC (Bld) 53.0 % High 19-41 [facility] Comment on above: Performed By: #### L 100.0100, L500.4050, L506.1000, L501.9520 ####[facility] [address] [place], [address] MCH (RBC) [Entitic mass] 28.7 pg Normal 27.0-32.0 [facility] Comment on above: Performed By: #### L 100.0100, L500.4050, L506.1000, L501.9520 ####[facility] [address] [place], [address] MCHC (RBC) [Mass/Vol] 31.6 g/dL Low 32-36 [facility] Comment on above: Performed By: #### L 100.0100, L500.4050, L506.1000, L501.9520 ####[facility] [address] [place], [address] MCV (RBC) [Entitic vol] 90.7 fL Normal 80-94 [facility] Comment on above: Performed By: #### L 100.0100, L500.4050, L506.1000, L501.9520 ####[facility] [address] [place], [address] Monocytes/100 WBC (Bld) 17.5 % High 0-10 [facility] Comment on above: Performed By: #### L 100.0100, L500.4050, L506.1000, L501.9520 ####[facility] [address] [place], [address] Neutrophils/100 WBC (Bld) 27.2 % Low 47-70 [facility] Comment on above: Performed By: #### L 100.0100, L500.4050, L506.1000, L501.9520 ####[facility] [address] [place], [address] Nucleated RBC (Bld) [#/Vol] 0 10*3/uL Normal 0-5 [facility] Comment on above: Performed By: #### L 100.0100, L500.4050, L506.1000, L501.9520 ####[facility] [address] [place], [address] Platelet mean volume (Bld) [Entitic vol] 9.7 fL Normal 6.2-12.0 [facility] Comment on above: Performed By: #### L 100.0100, L500.4050, L506.1000, L501.9520 ####[facility] [address] [place], [address] Platelets (Bld) [#/Vol] 187 10*3/uL Normal 150-450 [facility] Comment on above: Performed By: #### L 100.0100, L500.4050, L506.1000, L501.9520 ####[facility] [address] [place], [address] RBC (Bld) [#/Vol] 4.29 10*6/uL Low 4.6-6.2 [facility] Comment on above: Performed By: #### L 100.0100, L500.4050, L506.1000, L501.9520 ####[facility] [address] [place], [address] RDW SD 49.2 fl High 35.1-43.9 [facility] Comment on above: Performed By: #### L 100.0100, L500.4050, L506.1000, L501.9520 ####[facility] [address] [place], [address] WBC (Bld) [#/Vol] 4.3 10*3/uL Low 4.4-11.0 [facility] Comment on above: Performed By: #### L 100.0100, L500.4050, L506.1000, L501.9520 ####[facility] [address] [place], [address] Carbon dioxide measurementOr dered By: Husam Khan on 12-29-2024 CO2 [Moles/Vol] 30.0 mmol/L 21.0-32.0 [facility] Chloride measurementOrdered By: Husam Khan on 12-29-2024 Chloride [Moles/Vol] 103 mmol/L 98-107 [facility] Comprehensive Metabolic Prof ilon 12-29-2024 Albumin [Mass/Vol] 3.1 g/dL Low 3.2-5.0 [facility] Comment on above: Performed By: #### L 100.0100, L500.4050, L506.1000, L501.9520 ####[facility] [address] [place], [address] Albumin/Globulin [Mass ratio] 0.7 {ratio} Low 0.9-2.4 [facility] Comment on above: Performed By: #### L 100.0100, L500.4050, L506.1000, L501.9520 ####[facility] [address] [place], [address] ALK P 97 U/L Normal 45-117 [facility] Comment on above: Performed By: #### L 100.0100, L500.4050, L506.1000, L501.9520 ####[facility] [address] [place], [address] ALT [Catalytic activity/Vol] 11 U/L Low 16-61 [facility] Comment on above: Performed By: #### L 100.0100, L500.4050, L506.1000, L501.9520 ####[facility] [address] [place], [address] AST [Catalytic activity/Vol] 15 U/L Normal 15-37 [facility] Comment on above: Performed By: #### L 100.0100, L500.4050, L506.1000, L501.9520 ####[facility] [address] [place], [address] Bilirubin [Mass/Vol] 0.40 mg/dL Normal 0.20-1.00 [facility] Comment on above: Result Comment: For patients on eltrombopag therapy, use of Dimension Craw[place] TBIL is not recommended. Performed By: #### L 100.0100, L500.4050, L506.1000, L501.9520 ####[facility] [address] [place], [address] BUN/CRE 9.6 RATIO Low 10-20 [facility] Comment on above: Performed By: #### L 100.0100, L500.4050, L506.1000, L501.9520 ####[facility] [address] [place], [address] CA,Total 8.7 mg/dL Normal 8.5-10.1 [facility] Comment on above: Performed By: #### L 100.0100, L500.4050, L506.1000, L501.9520 ####[facility] [address] [place], [address] Chloride [Moles/Vol] 103 mmol/L Normal 98-107 [facility] Comment on above: Performed By: #### L 100.0100, L500.4050, L506.1000, L501.9520 ####[facility] [address] [place], [address] CO2 [Moles/Vol] 30.0 mmol/L Normal 21.0-32.0 [facility] Comment on above: Performed By: #### L 100.0100, L500.4050, L506.1000, L501.9520 ####[facility] [address] [place], [address] Creatinine [Mass/Vol] 1.15 mg/dL Normal 0.70-1.30 [facility] Comment on above: Result Comment: The validity of the calculated GFR GFRAA in patients over70 years has not been determined. Clinical correlation isessential. Performed By: #### L 100.0100, L500.4050, L506.1000, L501.9520 ####[facility] [address] [place], [address] EST GFR - AA 77 mL/min Normal >60 [facility] Comment on above: Result Comment: Afri can [place] GFR Calc Performed By: #### L 100.0100, L500.4050, L506.1000, L501.9520 ####[facility] [address] [place], [address] GAP 5 Normal 5-15 [facility] Comment on above: Performed By: #### L 100.0100, L500.4050, L506.1000, L501.9520 ####[facility] [address] [place], [address] GFR/1.73 sq M.predicted among non-blacks MDRD (S/P/Bld) [Vol rate/Area] 64 mL/min/{1.73_m2} Normal >60 [facility] Comment on above: Result Comment: Non- GFR Calc Performed By: #### L 100.0100, L500.4050, L506.1000, L501.9520 ####[facility] [address] [place], [address] Globulin (S) [Mass/Vol] 4.4 g/dL High 2.2-4.2 [facility] Comment on above: Performed By: #### L 100.0100, L500.4050, L506.1000, L501.9520 ####[facility] [address] [place], [address] Glucose [Mass/Vol] 115 mg/dL High 74-106 [facility] Comment on above: Result Comment: Fast ing Glucose result from 100 to 125 mg/dLsuggests IMPAIRED HOMEOSTASIS per A.D.A. criteria. Performed By: #### L 100.0100, L500.4050, L506.1000, L501.9520 ####[facility] [address] [place], [address] Potassium [Moles/Vol] 3.9 mmol/L Normal 3.5-5.1 [facility] Comment on above: Performed By: #### L 100.0100, L500.4050, L506.1000, L501.9520 ####[facility] [address] [place], [address] Sodium [Moles/Vol] 138 mmol/L Normal 136-145 [facility] Comment on above: Performed By: #### L 100.0100, L500.4050, L506.1000, L501.9520 ####[facility] [address] [place], [address] T PROT 7.5 g/dL Normal 6.4-8.2 [facility] Comment on above: Performed By: #### L 100.0100, L500.4050, L506.1000, L501.9520 ####[facility] [address] [place], [address] Urea nitrogen [Mass/Vol] 11 mg/dL Normal 7-18 [facility] Comment on above: Performed By: #### L 100.0100, L500.4050, L506.1000, L501.9520 ####[facility] [address] [place], [address] Eosinophil percentageOrdered By: Husam Khan on 12-29-2024 Eosinophils/100 WBC (Bld) 1.6 % 0-5 [facility] Erythrocyte distribution wid th ratioOrdered By: Husam Khan on 12-29-2024 Erythrocyte distribution width (RBC) [Ratio] 15.0 % High 11.6-14.6 [facility] Erythrocyte distribution wid th standard deviationOrdered By: Husam Khan on 12-29-2024 Erythrocyte distribution width (RBC) [Ratio] 49.2 fl High 35.1-43.9 [facility] Glomerular filtration rate ( GFR) estimationOrdered By: Husam Khan on 12-29-2024 GFR/1.73 sq M.predicted among non-blacks MDRD (S/P/Bld) [Vol rate/Area] 64 mL/min/{1.73_m2} >60 [facility] Comment on above: Non- GFR Calc Glucose measurementOrdered B y: Husam Khan on 12-29-2024 Glucose [Mass/Vol] 115 mg/dL High 74-106 [facility] Comment on above: Fasting Glucose resu lt from 100 to 125 mg/dL suggests IMPAIRED HOMEOSTASIS per A.D.A. criteria. Hematocrit Auto (Bld) [Volum e fraction]Ordered By: Husam Khan on 12-29-2024 Hematocrit (Bld) [Volume fraction] 38.9 % Low 40-54 [facility] Hemoglobin measurementOrdere d By: Husam Khan on 12-29-2024 Hemoglobin (Bld) [Mass/Vol] 12.3 g/dL Low 13.0-16.5 [facility] Immature granulocytes/100 WB C Auto (Bld)Ordered By: Husam Khan on 12-29-2024 Immature granulocytes/100 WBC (Bld) 0.500 % 0.0-0.9 [facility] Comment on above: IG% - Immature Granu locytes (promyelocytes, myelocytes and metamyelocytes) > 1% indicates that a LEFT SHIFT is Present. Laboratory - Chemistry and C hemistry - challengeOrdered By: Husam Khan on 12-29-2024 AST [Catalytic activity/Vol] 15 U/L 15-37 [facility] MCV (mean corpuscular volume ) determinationOrdered By: Husam Khan 12-29-2024 MCV (RBC) [Entitic vol] 90.7 fL 80-94 [facility] Mean corpuscular hemoglobin (MCH) determinationOrdered By: Husam Khan 12-29-2024 MCH (RBC) [Entitic mass] 28.7 pg 27.0-32.0 [facility] Mean corpuscular hemoglobin concentration (MCHC) determinationOrdered By: Husam Khan on 12-29-2024 MCHC (RBC) [Mass/Vol] 31.6 g/dL Low 32-36 [facility] Mean platelet volume determi nationOrdered By: Husam Khan on 12-29-2024 Platelet mean volume (Bld) [Entitic vol] 9.7 fL 6.2-12.0 [facility] Monocyte percentageOrdered B y: Husam Khan on 12-29-2024 Monocytes/100 WBC (Bld) 17.5 % High 0-10 [facility] Neutrophil percentageOrdered By: Husam Khan on 12-29-2024 Neutrophils/100 WBC (Bld) 27.2 % Low 47-70 [facility] Nucleated red blood cell per centageOrdered By: Husam Khan on 12-29-2024 Nucleated RBC/100 WBC (Bld) [Ratio] 0 % 0-5 [facility] Platelet countOrdered By: Kennedy Khan on 12-29-2024 Platelets (Bld) [#/Vol] 187 10*3/uL 150-450 [facility] Potassium measurementOrdered By: Husam Khan on 12-29-2024 Potassium [Moles/Vol] 3.9 mmol/L 3.5-5.1 [facility] RBC Auto (Bld) [#/Vol]Ordere d By: Husam Khan on 12-29-2024 RBC (Bld) [#/Vol] 4.29 10*6/uL Low 4.6-6.2 [facility] Serum anion gap measurementO rdered By: Husam Khan on 12-29-2024 Anion gap [Moles/Vol] 5 mmol/L 5-15 [facility] Serum globulin measurementOr dered By: Husam Khan on 12-29-2024 Globulin (S) [Mass/Vol] 4.4 g/dL High 2.2-4.2 [facility] Serum or plasma alanine mccoy otransferase (ALT) measurementOrdered By: Husam Khan 12-29-2024 ALT [Catalytic activity/Vol] 11 U/L Low 16-61 [facility] Serum or plasma albumin donna urement (mass/volume)Ordered By: Husam Khan 12-29-2024 Albumin [Mass/Vol] 3.1 g/dL Low 3.2-5.0 [facility] Serum or plasma alkaline salvador sphatase measurementOrdered By: Husam Khan 12-29-2024 ALP [Catalytic activity/Vol] 97 U/L 45-117 [facility] Serum or plasma calcium donna urement (mass/volume)Ordered By: Husam Khan 12-29-2024 Calcium [Mass/Vol] 8.7 mg/dL 8.5-10.1 [facility] Serum or plasma creatinine m easurement (mass/volume)Ordered By: Husam Khan 12-29-2024 Creatinine [Mass/Vol] 1.15 mg/dL 0.70-1.30 [facility] Comment on above: The validity of the calculated GFR & GFRAA in patients over 70 years has not been determined. Clinical correlation is essential. Serum or plasma thyroid stim ulating hormone (TSH) measurement (units/volume)Ordered By: Husam Khan on 12-29-2024 TSH Qn 3.070 uIU/mL 0.358-3.740 [facility] Serum or plasma urea nitroge n measurement (mass/volume)Ordered By: Husam Khan on 12-29-2024 Urea nitrogen [Mass/Vol] 11 mg/dL 7-18 [facility] Sodium levelOrdered By: Husam Khan on 12-29-2024 Sodium [Moles/Vol] 138 mmol/L 136-145 [facility] Thyroid Stim Hormone (TSH)on 12-29-2024 TSH 3.070 uIU/mL Normal 0.358-3.740 [facility] Comment on above: Performed By: #### L 100.0100, L500.4050, L506.1000, L501.9520 ####[facility] [address] [place], [place], [address] Total proteinOrdered By: Husam Khan on 12-29-2024 Protein [Mass/Vol] 7.5 g/dL 6.4-8.2 [facility] Vitamin D,25 Hydroxyon 12-29 Vitamin D 25-OH 13.7 ng/mL Normal [facility] Comment on above: Result Comment: Inna min D 25(OH) Status Range Deficiency <20 ng/mL (50nmol/L) Insufficiency 20 - 30 ng/mL (50 - 75 nmol/L) Sufficiency 30 - 100 ng/mL (75 - 250 nmol/L) Toxicity >100 ng/mL (>250 nmol/L) Performed By: #### L 100.0100, L500.4050, L506.1000, L501.9520 ####[facility] [address] [place], [address] White blood cell (WBC) count Ordered By: Husam Khan on 12-29-2024 WBC (Bld) [#/Vol] 4.3 10*3/uL Low 4.4-11.0 [facility] Basophil percentageOrdered B y: Marcy Roque on 09-02-2023 Basophil percentage 3.3 mg/dL 2.5-4.9 [facility] Chloride [Moles/Vol] 107 mmol/L 98-107 [facility] Glucose [Mass/Vol] 102 mg/dL 74-106 [facility] Comment on above: Fasting Glucose resu lt from 100 to 125 mg/dL suggests IMPAIRED HOMEOSTASIS per A.D.A. criteria. Potassium [Moles/Vol] 4.2 mmol/L 3.5-5.1 [facility] Sodium [Moles/Vol] 139 mmol/L 136-145 [facility] Laboratory - Chemistry and C hemistry - challengeOrdered By: Marcy Roque on 09-02-2023 CO2 [Moles/Vol] 28.0 mmol/L 21.0-32.0 [facility] Urea nitrogen/Creatinine [Mass ratio] 13.6 mg/mg 10-20 [facility] No Panel InformationOrdered By: Marcy Roque on 09-02-2023 Estimated GFR (MDRD) Amer 66 mL/min >60 [facility] Comment on above: GFR Calc Estimated GFR (MDRD) Non-Af Amer 55 mL/min >60 [facility] Comment on above: Non- GFR Calc Serum or plasma albumin donna urement (mass/volume)Ordered By: Marcy Roque on 09-02-2023 Albumin [Mass/Vol] 3.5 g/dL 3.2-5.0 [facility] Serum or plasma calcium donna urement (mass/volume)Ordered By: Marcy Roque on 09-02-2023 Calcium [Mass/Vol] 8.9 mg/dL 8.5-10.1 [facility] Serum or plasma creatinine m easurement (mass/volume)Ordered By: Marcy Roque on 09-02-2023 Creatinine [Mass/Vol] 1.32 mg/dL 0.70-1.30 [facility] Comment on above: The validity of the calculated GFR & GFRAA in patients over 70 years has not been determined. Clinical correlation is essential. Serum or plasma urea nitroge n measurement (mass/volume)Ordered By: Marcy Roque on 09-02-2023 Urea nitrogen [Mass/Vol] 18 mg/dL 7-18 [facility] Urine creatinine measurement (mass/volume)Ordered By: Marcy Roque on 09-02-2023 Creatinine (U) [Mass/Vol] 240.00 mg/dL NO RANGE EST. [facility] Urine protein measurement (m ass/volume)Ordered By: Marcy Roque on 09-02-2023 Protein (U) [Mass/Vol] 49.5 mg/dL 0.0-11.8 [facility] Urine protein/creatinine mas s ratioOrdered By: Marcy Roque on 09-02-2023 Protein/Creatinine (U) [Mass ratio] 206 mg/g CRE 0-200 [facility] Absolute lymphocyte countOrd ered By: Geoffrey Garza on 07-07-2023 Lymphocytes Auto (Unsp spec) [#/Vol] 2.20 10*3/uL 0.83-4.51 [facility] Basophil percentageOrdered B y: Geoffrey Garza on 07-07-2023 Basophils/100 WBC (Bld) 0.2 % 0-1 [facility] Bilirubin [Mass/Vol] 0.50 mg/dL 0.20-1.00 [facility] Comment on above: For patients on eltr ombopag therapy, use of Dimension [place] TBIL is not recommended. Chloride [Moles/Vol] 106 mmol/L 98-107 [facility] Eosinophils/100 WBC (Bld) 1.6 % 0-5 [facility] Glucose [Mass/Vol] 112 mg/dL 74-106 [facility] Comment on above: Fasting Glucose resu lt from 100 to 125 mg/dL suggests IMPAIRED HOMEOSTASIS per A.D.A. criteria. Neutrophils (Bld) [#/Vol] 1.4 10*3/uL 2.0-7.7 [facility] Neutrophils/100 WBC (Bld) 32.0 % 47-70 [facility] Potassium [Moles/Vol] 3.3 mmol/L 3.5-5.1 [facility] Protein [Mass/Vol] 6.8 g/dL 6.4-8.2 [facility] Sodium [Moles/Vol] 139 mmol/L 136-145 [facility] WBC (Bld) [#/Vol] 4.3 10*3/uL 4.4-11.0 [facility] Blood erythrocytes count (nu mber/volume)Ordered By: Geoffrey Garza on 07-07-2023 RBC (Bld) [#/Vol] 4.12 10*6/uL 4.6-6.2 [facility] Blood hemoglobin measurement (mass/volume)Ordered By: Geoffrey Garza on 07-07-2023 Hemoglobin (Bld) [Mass/Vol] 12.6 g/dL 13.0-16.5 [facility] Blood lymphocytes/100 leukoc ytesOrdered By: Geoffrey Garza on 07-07-2023 Lymphocytes/100 WBC (Bld) 51.5 % 19-41 [facility] Blood monocytes/100 leukocyt esOrdered By: Geoffrey Garza on 07-07-2023 Monocytes/100 WBC (Bld) 14.5 % 0-10 [facility] Blood platelet mean volumeOr dered By: Geoffrey Garza on 07-07-2023 Platelet mean volume (Bld) [Entitic vol] 9.8 fL 6.2-12.0 [facility] Determination of erythrocyte mean corpuscular volume (MCV)Ordered By: Geoffrey Garza on 07-07-2023 MCV (RBC) [Entitic vol] 95.4 fL 80-94 [facility] Hematocrit Auto (Bld) [Volum e fraction]Ordered By: Geoffrey Garza on 07-07-2023 Hematocrit (Bld) [Volume fraction] 39.3 % 40-54 [facility] Iron measurement (mass/mass) Ordered By: Geoffrey Garza on 07-07-2023 Iron (Unsp spec) [Mass/Mass] 64 ug/dL 65-175 [facility] Laboratory - Chemistry and C hemistry - challengeOrdered By: Geoffrey Garza on 07-07-2023 ALP [Catalytic activity/Vol] 94 U/L 45-117 [facility] ALT [Catalytic activity/Vol] 13 U/L 16-61 [facility] CO2 [Moles/Vol] 29.0 mmol/L 21.0-32.0 [facility] Globulin (S) [Mass/Vol] 3.7 g/dL 2.2-4.2 [facility] Urea nitrogen/Creatinine [Mass ratio] 9.8 mg/mg 10-20 [facility] Laboratory - Hematology and Cell countsOrdered By: Geoffrey Garza on 07-07-2023 Erythrocyte distribution width (RBC) [Entitic vol] 46.0 fL 35.1-43.9 [facility] Erythrocyte distribution width (RBC) [Ratio] 13.5 % 11.6-14.6 [facility] Immature granulocytes/100 WBC (Bld) 0.200 % 0.0-0.9 [facility] Comment on above: IG% - Immature Granu locytes (promyelocytes, myelocytes and metamyelocytes) > 1% indicates that a LEFT SHIFT is Present. MCH (RBC) [Entitic mass] 30.6 pg 27.0-32.0 [facility] Nucleated RBC/100 WBC (Bld) [Ratio] 0 % 0-5 [facility] MCHC Auto (RBC) [Mass/Vol]Or dered By: Geoffrey Garza on 07-07-2023 MCHC (RBC) [Mass/Vol] 32.1 g/dL 32-36 [facility] No Panel InformationOrdered By: Geoffrey Garza on 07-07-2023 Estimated GFR (MDRD) Amer 73 mL/min >60 [facility] Comment on above: GFR Calc Estimated GFR (MDRD) Non-Af Amer 60 mL/min >60 [facility] Comment on above: Non- GFR Calc Total Iron Binding Capacity 247 ug/dL 250-450 [facility] Platelets bldOrdered By: Polo Garza on 07-07-2023 Platelets (Bld) [#/Vol] 168 10*3/uL 150-450 [facility] Serum or plasma albumin donna urement (mass/volume)Ordered By: Geoffrey Garza on 07-07-2023 Albumin [Mass/Vol] 3.1 g/dL 3.2-5.0 [facility] Serum or plasma albumin/glob ulin mass ratioOrdered By: Geoffrey Garza on 07-07-2023 Albumin/Globulin [Mass ratio] 0.8 {ratio} 0.9-2.4 [facility] Serum or plasma calcium donna urement (mass/volume)Ordered By: Geoffrey Garza on 07-07-2023 Calcium [Mass/Vol] 8.5 mg/dL 8.5-10.1 [facility] Serum or plasma creatinine m easurement (mass/volume)Ordered By: [facility] Greg on 07-07-2023 Creatinine [Mass/Vol] 1.22 mg/dL 0.70-1.30 [facility] Comment on above: The validity of the calculated GFR & GFRAA in patients over 70 years has not been determined. Clinical correlation is essential. Serum or plasma ferritin yosef surement (mass/volume)[facility] Ferritin [Mass/Vol] 51 ng/mL 26-388 [facility] Serum or plasma iron saturat ion measurement (mass fraction)[facility] Iron saturation [Mass fraction] 25.9 % 15.0-55.0 [facility] Serum or plasma urea nitroge n measurement (mass/volume)Ordered By: [facility]23 Urea nitrogen [Mass/Vol] 12 mg/dL 7-18 [facility] Thin prep Papanicolaou smear with manual screeningOrdered By: [facility]23 Thin prep Papanicolaou smear with manual screening 16 U/L 15-37 [facility] Thin prep Papanicolaou smear with manual screening 4 5-15 [facility] Absolute lymphocyte countOrd ered By: Husam Khan on 06-25-2023 Lymphocytes Auto (Unsp spec) [#/Vol] 2.16 10*3/uL 0.83-4.51 [facility] Basophil percentageOrdered B y: Husam Khan on 06-25-2023 Basophils/100 WBC (Bld) 0.4 % 0-1 [facility] Bilirubin [Mass/Vol] 0.40 mg/dL 0.20-1.00 [facility] Comment on above: For patients on eltr ombopag therapy, use of Dimension [place] TBIL is not recommended. Chloride [Moles/Vol] 108 mmol/L 98-107 [facility] Eosinophils/100 WBC (Bld) 1.5 % 0-5 [facility] Glucose [Mass/Vol] 103 mg/dL 74-106 [facility] Comment on above: Fasting Glucose resu lt from 100 to 125 mg/dL suggests IMPAIRED HOMEOSTASIS per A.D.A. criteria. Neutrophils (Bld) [#/Vol] 1.9 10*3/uL 2.0-7.7 [facility] Neutrophils/100 WBC (Bld) 39.6 % 47-70 [facility] Potassium [Moles/Vol] 3.7 mmol/L 3.5-5.1 [facility] Protein [Mass/Vol] 7.4 g/dL 6.4-8.2 [facility] Sodium [Moles/Vol] 140 mmol/L 136-145 [facility] WBC (Bld) [#/Vol] 4.7 10*3/uL 4.4-11.0 [facility] Blood erythrocytes count (nu mber/volume)Ordered By: Husam Khan on 06-25-2023 RBC (Bld) [#/Vol] 4.04 10*6/uL 4.6-6.2 [facility] Blood hemoglobin measurement (mass/volume)Ordered By: Husam Khan on 06-25-2023 Hemoglobin (Bld) [Mass/Vol] 13.0 g/dL 13.0-16.5 [facility] Blood lymphocytes/100 leukoc ytesOrdered By: Husam Khan on 06-25-2023 Lymphocytes/100 WBC (Bld) 45.6 % 19-41 [facility] Blood monocytes/100 leukocyt esOrdered By: Husam Khan on 06-25-2023 Monocytes/100 WBC (Bld) 12.7 % 0-10 [facility] Blood platelet mean volumeOr dered By: Husam Khan on 06-25-2023 Platelet mean volume (Bld) [Entitic vol] 10.0 fL 6.2-12.0 [facility] Determination of erythrocyte mean corpuscular volume (MCV)Ordered By: Husam Khan on 06-25-2023 MCV (RBC) [Entitic vol] 94.3 fL 80-94 [facility] Hematocrit Auto (Bld) [Volum e fraction]Ordered By: Husam Khan on 06-25-2023 Hematocrit (Bld) [Volume fraction] 38.1 % 40-54 [facility] Laboratory - Chemistry and C hemistry - challengeOrdered By: Husam Khan on 06-25-2023 ALP [Catalytic activity/Vol] 94 U/L 45-117 [facility] ALT [Catalytic activity/Vol] 15 U/L 16-61 [facility] CO2 [Moles/Vol] 24.0 mmol/L 21.0-32.0 [facility] Globulin (S) [Mass/Vol] 4.2 g/dL 2.2-4.2 [facility] Urea nitrogen/Creatinine [Mass ratio] 12.6 mg/mg 10-20 [facility] Laboratory - Hematology and Cell countsOrdered By: Husam Khan on 06-25-2023 Erythrocyte distribution width (RBC) [Entitic vol] 46.2 fL 35.1-43.9 [facility] Erythrocyte distribution width (RBC) [Ratio] 13.4 % 11.6-14.6 [facility] Immature granulocytes/100 WBC (Bld) 0.200 % 0.0-0.9 [facility] Comment on above: IG% - Immature Granu locytes (promyelocytes, myelocytes and metamyelocytes) > 1% indicates that a LEFT SHIFT is Present. MCH (RBC) [Entitic mass] 32.2 pg 27.0-32.0 [facility] Nucleated RBC/100 WBC (Bld) [Ratio] 0 % 0-5 [facility] MCHC Auto (RBC) [Mass/Vol]Or dered By: Husam Khan on 06-25-2023 MCHC (RBC) [Mass/Vol] 34.1 g/dL 32-36 [facility] No Panel InformationOrdered By: Husam Khan on 06-25-2023 Estimated GFR (MDRD) Amer 69 mL/min >60 [facility] Comment on above: GFR Calc Estimated GFR (MDRD) Non-Af Amer 57 mL/min >60 [facility] Comment on above: Non- GFR Calc Thyroid Stimulating Hormone (TSH) 2.81 uIU/mL 0.358-3.74 [facility] Vitamin D 25-Hydroxy 13.2 ng/mL [facility] Comment on above: Vitamin D 25(OH) Sta tus Range Deficiency <20 ng/mL (50nmol/L) Insufficiency 20 - 30 ng/mL (50 - 75 nmol/L) Sufficiency 30 - 100 ng/mL (75 - 250 nmol/L) Toxicity >100 ng/mL (>250 nmol/L) Platelets bldOrdered By: Husam Khan on 06-25-2023 Platelets (Bld) [#/Vol] 187 10*3/uL 150-450 [facility] Serum or plasma albumin donna urement (mass/volume)Ordered By: Husam Khan on 06-25-2023 Albumin [Mass/Vol] 3.2 g/dL 3.2-5.0 [facility] Serum or plasma albumin/glob ulin mass ratioOrdered By: Husam Khan on 06-25-2023 Albumin/Globulin [Mass ratio] 0.8 {ratio} 0.9-2.4 [facility] Serum or plasma calcium donna urement (mass/volume)Ordered By: Husam Khan on 06-25-2023 Calcium [Mass/Vol] 8.2 mg/dL 8.5-10.1 [facility] Serum or plasma creatinine m easurement (mass/volume)Ordered By: Husam Khan on 06-25-2023 Creatinine [Mass/Vol] 1.27 mg/dL 0.70-1.30 [facility] Comment on above: The validity of the calculated GFR & GFRAA in patients over 70 years has not been determined. Clinical correlation is essential. Serum or plasma urea nitroge n measurement (mass/volume)Ordered By: Husam Khan on 06-25-2023 Urea nitrogen [Mass/Vol] 16 mg/dL 7-18 [facility] Thin prep Papanicolaou smear with manual screeningOrdered By: Husam Khan on 06-25-2023 Thin prep Papanicolaou smear with manual screening 19 U/L 15-37 [facility] Thin prep Papanicolaou smear with manual screening 8 5-15 [facility] Culture, urineOrdered By: Dr Sara Roque on 02-12-2023 Bacteria identified Cx Nom (U) Mixed Gram Pos & Gram Neg Org [facility] 24 hour urine alpha 2 globul in/total protein ratio by electrophoresis (mass fraction)Ordered By: Dr. Roque on 02-10-2023 Alpha 2 globulin Elph (24H U) [Mass fraction] 7.5 % . [facility] 24 hour urine beta globulin/ total protein ratio by electrophoresis (mass fraction)Ordered By: Dr. Roque on 02-10-2023 Beta globulin Elph (24H U) [Mass fraction] 13.1 % . [facility] 24 hour urine gamma globulin /total protein ratio by electrophoresis (mass fraction)Ordered By: Dr. Roque on 02-10-2023 Gamma globulin Elph (24H U) [Mass fraction] 13.9 % . [facility] Amorphous sediment detection in urine sediment by light microscopyOrdered By: Dr. Roque on 02-10-2023 Amorphous sediment LM Ql (Urine sed) 2+ [facility] Basophil percentageOrdered B y: Dr. Roque on 02-10-2023 Basophil percentage 0 SEEN /hpf 0-5 [facility] Bilirubin Test strip Ql (U)O rdered By: Dr. Roque on 02-10-2023 Bilirubin Ql (U) Negative Negative [facility] Ketones Test strip Ql (U)Ord ered By: Dr. Roque on 02-10-2023 Ketones Ql (U) Negative Negative [facility] Mucus LM Ql (Urine sed)Order ed By: Dr. Roque on 02-10-2023 Mucus Ql (Urine sed) 0 SEEN /hpf [facility] Nitrite Test strip Ql (U)Ord ered By: Dr. Roque on 02-10-2023 Nitrite Ql (U) Negative Negative [facility] No Panel InformationOrdered By: Dr. Roque on 02-10-2023 Urine Immunofixation PEP Note Comment . [facility] Comment on above: Protein electrophore sis scan will follow via computer,mail, or data management consultant delivery.Performed at: [address] [id number] Director: Alcides Alicea PhD, Phone: [phone] Protein Test strip Ql (U)Ord ered By: Dr. Roque on 02-10-2023 Protein Ql (U) 30 mg/dl Negative [facility] Squamous epithelial cells de tection in urine sediment by light microscopyOrdered By: Dr. Roque on 02-10-2023 Epithelial cells.squamous LM Ql (Urine sed) 0 SEEN /hpf 0-5 [facility] Urine albumin/total protein mass ratio by electrophoresisOrdered By: Dr. Roque on 02-10-2023 Albumin Elph (U) [Mass fraction] 61.3 % . [facility] Urine alpha 1 globulin/total protein ratio by electrophoresis (mass fraction)Ordered By: Dr. Roque on 02-10-2023 Alpha 1 globulin Elph (U) [Mass fraction] 4.1 % . [facility] Urine blood detectionOrdered By: Dr. Roque on 02-10-2023 RBC Ql (U) Negative Negative [facility] RBC Ql (U) 0 SEEN /hpf 0-5 [facility] Urine clarityOrdered By: Dr. Roque on 02-10-2023 Clarity (U) Clear Clear [facility] Urine color determinationOrd ered By: Dr. Roque on 02-10-2023 Color (U) Yellow Yellow [facility] Urine creatinine measurement (mass/volume)Ordered By: Dr. Roque on 02-10-2023 Creatinine (U) [Mass/Vol] 184.00 mg/dL NO RANGE EST. [facility] Urine glucose detectionOrder ed By: Dr. Roque on 02-10-2023 Glucose Ql (U) Normal mg/dl Normal [facility] Urine leukocyte esterase det ection by dipstickOrdered By: Dr. Roque on 02-10-2023 Leukocyte esterase Test strip Ql (U) Negative Negative [facility] Urine monoclonal protein/tot al protein mass ratio by electrophoresisOrdered By: Dr. Roque on 02-10-2023 Protein.monoclonal Elph (U) [Mass fraction] See comment [facility] Comment on above: NOT OBSERVED Urine pHOrdered By: Dr. Roque on 02-10-2023 pH (U) 5.0 [pH] 5.0 - 8.0 [facility] Urine protein measurement (m ass/volume)Ordered By: Dr. Roque on 02-10-2023 Protein (U) [Mass/Vol] 57.7 mg/dL 0.0-11.8 [facility] Protein (U) [Mass/Vol] 54.4 mg/dL Not Estab. [facility] Urine protein/creatinine mas s ratioOrdered By: Dr. Roque on 03-21-2023 Protein/Creatinine (U) [Mass ratio] 314 mg/g CRE 0-200 [facility] Urine sediment bacteria coun t by microscopy (number/high power field)Ordered By: Dr. Roque on 02-10-2023 Bacteria LM.HPF (Urine sed) [#/Area] 1 /[HPF] None Seen [facility] Urine specific gravity measu rementOrdered By: Dr. Roque on 02-10-2023 Specific gravity (U) [Rel density] 1.015 1.002-1.030 [facility] Urobilinogen Auto test strip Ql (U)Ordered By: Dr. Roque on 02-10-2023 Urobilinogen Ql (U) Normal mg/dl Normal [facility] Absolute lymphocyte countOrd ered By: Dr. Khan on 12-25-2022 Lymphocytes Auto (Unsp spec) [#/Vol] 2.24 10*3/uL 0.83-4.51 [facility] Basophil percentageOrdered B y: Dr. Khan on 12-25-2022 Basophils/100 WBC (Bld) 0.2 % 0-1 [facility] Bilirubin [Mass/Vol] 0.40 mg/dL 0.20-1.00 [facility] Comment on above: For patients on eltr ombopag therapy, use of Dimension [place] TBIL is not recommended. Chloride [Moles/Vol] 103 mmol/L 98-107 [facility] Eosinophils/100 WBC (Bld) 1.3 % 0-5 [facility] Glucose [Mass/Vol] 101 mg/dL 74-106 [facility] Comment on above: Fasting Glucose resu lt from 100 to 125 mg/dL suggests IMPAIRED HOMEOSTASIS per A.D.A. criteria. Neutrophils (Bld) [#/Vol] 1.6 10*3/uL 2.0-7.7 [facility] Neutrophils/100 WBC (Bld) 35.8 % 47-70 [facility] Potassium [Moles/Vol] 3.8 mmol/L 3.5-5.1 [facility] Protein [Mass/Vol] 7.5 g/dL 6.4-8.2 [facility] Sodium [Moles/Vol] 138 mmol/L 136-145 [facility] WBC (Bld) [#/Vol] 4.5 10*3/uL 4.4-11.0 [facility] Blood erythrocytes count (nu mber/volume)Ordered By: Dr. Khan on 12-25-2022 RBC (Bld) [#/Vol] 4.43 10*6/uL 4.6-6.2 [facility] Blood hemoglobin measurement (mass/volume)Ordered By: Dr. Khan on 12-25-2022 Hemoglobin (Bld) [Mass/Vol] 13.4 g/dL 13.0-16.5 [facility] Blood lymphocytes/100 leukoc ytesOrdered By: Dr. Khan on 12-25-2022 Lymphocytes/100 WBC (Bld) 50.2 % 19-41 [facility] Blood monocytes/100 leukocyt esOrdered By: Dr. Khan on 12-25-2022 Monocytes/100 WBC (Bld) 12.3 % 0-10 [facility] Blood platelet mean volumeOr dered By: Dr. Khan on 12-25-2022 Platelet mean volume (Bld) [Entitic vol] 9.6 fL 6.2-12.0 [facility] Determination of erythrocyte mean corpuscular volume (MCV)Ordered By: Dr. Khan on 12-25-2022 MCV (RBC) [Entitic vol] 93.9 fL 80-94 [facility] Hematocrit Auto (Bld) [Volum e fraction]Ordered By: Dr. Khan on 12-25-2022 Hematocrit (Bld) [Volume fraction] 41.6 % 40-54 [facility] Laboratory - Chemistry and C hemistry - challengeOrdered By: Dr. Khan on 12-25-2022 ALP [Catalytic activity/Vol] 90 U/L 45-117 [facility] ALT [Catalytic activity/Vol] 20 U/L 16-61 [facility] CO2 [Moles/Vol] 26.0 mmol/L 21.0-32.0 [facility] Globulin (S) [Mass/Vol] 4.1 g/dL 2.2-4.2 [facility] Urea nitrogen/Creatinine [Mass ratio] 9.9 mg/mg 10-20 [facility] Laboratory - Hematology and Cell countsOrdered By: Dr. Khan on 12-25-2022 Erythrocyte distribution width (RBC) [Entitic vol] 45.6 fL 35.1-43.9 [facility] Erythrocyte distribution width (RBC) [Ratio] 13.2 % 11.6-14.6 [facility] Immature granulocytes/100 WBC (Bld) 0.200 % 0.0-0.9 [facility] Comment on above: IG% - Immature Granu locytes (promyelocytes, myelocytes and metamyelocytes) > 1% indicates that a LEFT SHIFT is Present. MCH (RBC) [Entitic mass] 30.2 pg 27.0-32.0 [facility] Nucleated RBC/100 WBC (Bld) [Ratio] 0 % 0-5 [facility] MCHC Auto (RBC) [Mass/Vol]Or dered By: Dr. Khan on 12-25-2022 MCHC (RBC) [Mass/Vol] 32.2 g/dL 32-36 [facility] No Panel InformationOrdered By: Dr. Khan on 12-25-2022 Estimated GFR (MDRD) Amer 67 mL/min >60 [facility] Comment on above: GFR Calc Estimated GFR (MDRD) Non-Af Amer 55 mL/min >60 [facility] Comment on above: Non- GFR Calc Thyroid Stimulating Hormone (TSH) 1.95 uIU/mL 0.358-3.74 [facility] Vitamin D 25-Hydroxy 14.6 ng/mL [facility] Comment on above: Vitamin D 25(OH) Sta tus Range Deficiency <20 ng/mL (50nmol/L) Insufficiency 20 - 30 ng/mL (50 - 75 nmol/L) Sufficiency 30 - 100 ng/mL (75 - 250 nmol/L) Toxicity >100 ng/mL (>250 nmol/L) Platelets bldOrdered By: Dr. Khan on 12-25-2022 Platelets (Bld) [#/Vol] 198 10*3/uL 150-450 [facility] Serum or plasma albumin donna urement (mass/volume)Ordered By: Dr. Khan on 12-25-2022 Albumin [Mass/Vol] 3.4 g/dL 3.2-5.0 [facility] Serum or plasma albumin/glob ulin mass ratioOrdered By: Dr. Khan on 12-25-2022 Albumin/Globulin [Mass ratio] 0.8 {ratio} 0.9-2.4 [facility] Serum or plasma calcium donna urement (mass/volume)Ordered By: Dr. Khan on 12-25-2022 Calcium [Mass/Vol] 8.8 mg/dL 8.5-10.1 [facility] Serum or plasma creatinine m easurement (mass/volume)Ordered By: Dr. Khan on 12-25-2022 Creatinine [Mass/Vol] 1.31 mg/dL 0.70-1.30 [facility] Comment on above: The validity of the calculated GFR & GFRAA in patients over 70 years has not been determined. Clinical correlation is essential. Serum or plasma urea nitroge n measurement (mass/volume)Ordered By: Dr. Khan on 12-25-2022 Urea nitrogen [Mass/Vol] 13 mg/dL 7-18 [facility] Thin prep Papanicolaou smear with manual screeningOrdered By: Dr. Khan on 12-25-2022 Thin prep Papanicolaou smear with manual screening 17 U/L 15-37 [facility] Thin prep Papanicolaou smear with manual screening 9 5-15 [facility] Laboratory - Microbiology an d Antimicrobial susceptibilityOrdered By: Dr. Khan on 10-20-2022 SARS-CoV-2 (COVID-19) RNA TRICIA+probe Ql (Unsp spec) Not detected Not Detect [facility] Comment on above: Normal Reference Ran ge: [...] 10-20-2022 Influenza Types A,B Direct FA (RYLAN) [facility] RSV Ag EIAOrdered By: Dr. Kaleigh spencer on 10-20-2022 RSV Ag Immune stain Ql (Tiss) [facility] Basophil percentageon 2021 Basophil percentage 2.9 mg/dL 2.5-4.9 [facility] Work Phone: Chloride [Moles/Vol] 103 mmol/L 98-107 [facility] Work Phone: Glucose [Mass/Vol] 127 mg/dL 74-106 [facility] Work Phone: Comment on above: Fasting Glucose resu lt greater than or equal to 126 mg/dL suggests DIABETES MELLITUS per A.D.A. criteria. Potassium [Moles/Vol] 3.8 mmol/L 3.5-5.1 [facility] Work Phone: Sodium [Moles/Vol] 140 mmol/L 136-145 [facility] Work Phone: WBC (Bld) [#/Vol] 4.6 10*3/uL 4.4-11.0 [facility] Work Phone: Blood erythrocytes count (nu mber/volume)on 08-12-2022 RBC (Bld) [#/Vol] 4.40 10*6/uL 4.6-6.2 [facility] Work Phone: Blood hemoglobin measurement (mass/volume)on 08-12-2022 Hemoglobin (Bld) [Mass/Vol] 13.6 g/dL 13.0-16.5 [facility] Work Phone: Blood platelet mean volumeon 08-12-2022 Platelet mean volume (Bld) [Entitic vol] 9.6 fL 6.2-12.0 [facility] Work Phone: Determination of erythrocyte mean corpuscular volume (MCV)on 08-12-2022 MCV (RBC) [Entitic vol] 95.0 fL 80-94 [facility] Work Phone: Hematocrit Auto (Bld) [Volum e fraction]on 08-12-2022 Hematocrit (Bld) [Volume fraction] 41.8 % 40-54 [facility] Work Phone: Laboratory - Chemistry and C hemistry - challengeon 08-12-2022 CO2 [Moles/Vol] 29.0 mmol/L 21.0-32.0 [facility] Work Phone: Urea nitrogen/Creatinine [Mass ratio] 7.7 mg/mg - [facility] Work Phone: Laboratory - Hematology and Cell countson 08-12-2022 Erythrocyte distribution width (RBC) [Entitic vol] 46.3 fL 35.1-43.9 [facility] Work Phone: Erythrocyte distribution width (RBC) [Ratio] 13.2 % 11.6-14.6 [facility] Work Phone: MCH (RBC) [Entitic mass] 30.9 pg 27.0-32.0 [facility] Work Phone: MCHC Auto (RBC) [Mass/Vol]on 08-12-2022 MCHC (RBC) [Mass/Vol] 32.5 g/dL 32-36 [facility] Work Phone: No Panel Informationon 08-12 Estimated GFR (MDRD) Amer 68 mL/min >60 [facility] Work Phone: Comment on above: GFR Calc Estimated GFR (MDRD) Non-Af Amer 56 mL/min >60 [facility] Work Phone: Comment on above: Non- GFR Calc Platelets bldon 08-12-2022 Platelets (Bld) [#/Vol] 167 10*3/uL 150-450 [facility] Work Phone: Serum or plasma albumin donna urement (mass/volume)on 08-12-2022 Albumin [Mass/Vol] 3.3 g/dL 3.2-5.0 [facility] Work Phone: Serum or plasma calcium donna urement (mass/volume)on 08-12-2022 Calcium [Mass/Vol] 8.9 mg/dL 8.5-10.1 [facility] Work Phone: Serum or plasma creatinine m easurement (mass/volume)on 08-12-2022 Creatinine [Mass/Vol] 1.30 mg/dL 0.70-1.30 [facility] Work Phone: Comment on above: The validity of the calculated GFR & GFRAA in patients over 70 years has not been determined. Clinical correlation is essential. Serum or plasma urea nitroge n measurement (mass/volume)on 08-12-2022 Urea nitrogen [Mass/Vol] 10 mg/dL 7-18 [facility] Work Phone: Absolute lymphocyte counton 07-08-2022 Lymphocytes Auto (Unsp spec) [#/Vol] 1.83 10*3/uL 0.83-4.51 [facility] Work Phone: Albumin Elph [Mass/Vol]on Albumin [Mass/Vol] 3.4 g/dL 2.9-4.4 [facility] Work Phone: Basophil percentageon 2021 Basophils/100 WBC (Bld) 0.2 % 0-1 [facility] Work Phone: Bilirubin [Mass/Vol] 0.40 mg/dL 0.20-1.00 [facility] Work Phone: Comment on above: For patients on eltr ombopag therapy, use of Dimension [place] TBIL is not recommended. Chloride [Moles/Vol] 105 mmol/L 98-107 [facility] Work Phone: Eosinophils/100 WBC (Bld) 4.0 % 0-5 [facility] Work Phone: Glucose [Mass/Vol] 123 mg/dL 74-106 [facility] Work Phone: Comment on above: Fasting Glucose resu lt from 100 to 125 mg/dL suggests IMPAIRED HOMEOSTASIS per A.D.A. criteria. Neutrophils (Bld) [#/Vol] 1.5 10*3/uL 2.0-7.7 [facility] Work Phone: Neutrophils/100 WBC (Bld) 35.0 % 47-70 [facility] Work Phone: Potassium [Moles/Vol] 3.7 mmol/L 3.5-5.1 [facility]: Protein [Mass/Vol] 7.2 g/dL 6.4-8.2 [facility] Work Phone: Sodium [Moles/Vol] 140 mmol/L 136-145 [facility] Work Phone: WBC (Bld) [#/Vol] 4.2 10*3/uL 4.4-11.0 [facility] Work Phone: Blood erythrocytes count (nu mber/volume)on 07-08-2022 RBC (Bld) [#/Vol] 4.26 10*6/uL 4.6-6.2 [facility]: Blood hemoglobin measurement (mass/volume)on 07-08-2022 Hemoglobin (Bld) [Mass/Vol] 12.8 g/dL 13.0-16.5 [facility] Work Phone: Blood lymphocytes/100 leukoc yteson 07-08-2022 Lymphocytes/100 WBC (Bld) 43.6 % 19-41 [facility] Work Phone: Blood monocytes/100 leukocyt eson 07-08-2022 Monocytes/100 WBC (Bld) 16.7 % 0-10 [facility] Work Phone: Blood platelet mean volumeon 07-08-2022 Platelet mean volume (Bld) [Entitic vol] 9.2 fL 6.2-12.0 [facility] Work Phone: Determination of erythrocyte mean corpuscular volume (MCV)on 07-08-2022 MCV (RBC) [Entitic vol] 92.5 fL 80-94 [facility] Work Phone: Hematocrit Auto (Bld) [Volum e fraction]on 07-08-2022 Hematocrit (Bld) [Volume fraction] 39.4 % 40-54 [facility] Work Phone: Interpretation of serum or p lasma protein pattern by immunofixation (narrative resulton 07-08-2022 Protein Fractions Immunofixation Carlin [Interp] See comment [facility] Work Phone: Comment on above: MONOCLONAL IGG LAMBD A = 0.2 G/DLDUE TO THE SMALL QUANTITY OF MONOCLONAL IGM KAPPA, UNABLE TOQUANTITATE THE M-SPIKE Iron measurement (mass/mass) on 07-08-2022 Iron (Unsp spec) [Mass/Mass] 51 ug/dL 65-175 [facility] Work Phone: Laboratory - Chemistry and C hemistry - challengeon 07-08-2022 ALP [Catalytic activity/Vol] 95 U/L 45-117 [facility] Work Phone: ALT [Catalytic activity/Vol] 15 U/L 16-61 [facility] Work Phone: CO2 [Moles/Vol] 29.0 mmol/L 21.0-32.0 [facility] Work Phone: Cobalamin (Vitamin B12) [Mass/Vol] 1123 pg/mL 211-911 [facility] Work Phone: Urea nitrogen/Creatinine [Mass ratio] 10.4 mg/mg 10-20 [facility] Work Phone: Laboratory - Hematology and Cell countson 07-08-2022 Erythrocyte distribution width (RBC) [Entitic vol] 44.1 fL 35.1-43.9 [facility] Work Phone: Erythrocyte distribution width (RBC) [Ratio] 13.1 % 11.6-14.6 [facility] Work Phone: Immature granulocytes/100 WBC (Bld) 0.500 % 0.0-0.9 [facility] Work Phone: Comment on above: IG% - Immature Granu locytes (promyelocytes, myelocytes and metamyelocytes) > 1% indicates that a LEFT SHIFT is Present. MCH (RBC) [Entitic mass] 30.0 pg 27.0-32.0 [facility] Work Phone: Nucleated RBC/100 WBC (Bld) [Ratio] 0 % 0-5 [facility] Work Phone: MCHC Auto (RBC) [Mass/Vol]on 07-08-2022 MCHC (RBC) [Mass/Vol] 32.5 g/dL 32-36 [facility] Work Phone: No Panel Informationon 07-08 Addendum Document Comment . [facility] Work Phone: Comment on above: Protein electrophore sis scan will follow via computer,mail, or data management consultant delivery.Performed at: [place] [id number] Director: Alcides Alicea PhD, Phone: [phone] Estimated GFR (MDRD) Amer 65 mL/min >60 [facility] Work Phone: Comment on above: GFR Calc Estimated GFR (MDRD) Non-Af Amer 54 mL/min >60 [facility] Work Phone: Comment on above: Non- GFR Calc Total Iron Binding Capacity 250 ug/dL 250-450 [facility] Work Phone: Platelets bldon 07-08-2022 Platelets (Bld) [#/Vol] 163 10*3/uL 150-450 [facility] Work Phone: Serum eeehd-1-wqlycmoa measu rement by electrophoresison 07-08-2022 Alpha 1 globulin Elph [Mass/Vol] 0.2 g/dL 0.0-0.4 [facility] Work Phone: Alpha 1 globulin Elph [Mass/Vol] 0.9 g/dL 0.4-1.0 [facility] Work Phone: Serum globulin measurement ( mass/volume)on 07-08-2022 Globulin (S) [Mass/Vol] 3.3 g/dL 2.2-3.9 [facility] Work Phone: Serum or plasma IgA measurem ent (mass/volume)on 07-08-2022 IgA [Mass/Vol] 464 mg/dL 61-437 [facility] Work Phone: Serum or plasma IgG measurem ent (mass/volume)on 07-08-2022 IgG [Mass/Vol] 1344 mg/dL 603-1613 [facility] Work Phone: Serum or plasma IgM measurem ent (mass/volume)on 07-08-2022 IgM [Mass/Vol] 148 mg/dL 15-143 [facility] Work Phone: Serum or plasma albumin donna urement (mass/volume)on 07-08-2022 Albumin [Mass/Vol] 3.2 g/dL 3.2-5.0 [facility] Work Phone: Serum or plasma albumin/glob ulin mass ratioon 07-08-2022 Albumin/Globulin [Mass ratio] 0.8 {ratio} 0.9-2.4 [facility] Work Phone: Serum or plasma beta globuli n measurement by electrophoresis (mass/volume)on 07-08-2022 Beta globulin Elph [Mass/Vol] 1.0 g/dL 0.7-1.3 [facility] Work Phone: Serum or plasma calcium donna urement (mass/volume)on 07-08-2022 Calcium [Mass/Vol] 8.7 mg/dL 8.5-10.1 [facility] Work Phone: Serum or plasma creatinine m easurement (mass/volume)on 07-08-2022 Creatinine [Mass/Vol] 1.34 mg/dL 0.70-1.30 [facility] Work Phone: Comment on above: The validity of the calculated GFR & GFRAA in patients over 70 years has not been determined. Clinical correlation is essential. Serum or plasma ferritin yosef surement (mass/volume)on 07-08-2022 Ferritin [Mass/Vol] 54 ng/mL 26-388 [facility] Work Phone: Serum or plasma gamma globul in measurement by electrophoresis (mass/volume)on 07-08-2022 Gamma globulin Elph [Mass/Vol] 1.3 g/dL 0.4-1.8 [facility] Work Phone: Serum or plasma immunoelectr ophoresis interpretation (nominal result)on 07-08-2022 Interpretation IEP [Interp] Comment . [facility] Work Phone: Comment on above: Immunofixation shows IgG monoclonal protein with lambdalight chain specificity.Immunofixation shows IgM monoclonal protein with kappalight chain specificity. Serum or plasma iron saturat ion measurement (mass fraction)on 07-08-2022 Iron saturation [Mass fraction] 20.4 % 15.0-55.0 [facility] Work Phone: Serum or plasma urea nitroge n measurement (mass/volume)on 07-08-2022 Urea nitrogen [Mass/Vol] 14 mg/dL 7-18 [facility] Work Phone: Thin prep Papanicolaou smear with manual screeningon 07-08-2022 Thin prep Papanicolaou smear with manual screening 18 U/L 15-37 [facility] Work Phone: Thin prep Papanicolaou smear with manual screening 6 5-15 [facility] Work Phone: Thin prep Papanicolaou smear with manual screening 1.1 0.7-1.7 [facility] Work Phone: Total protein bloodon 2021 Protein [Mass/Vol] 6.7 g/dL 6.0-8.5 [facility] Work Phone: Absolute lymphocyte counton 06-19-2022 Lymphocytes Auto (Unsp spec) [#/Vol] 1.86 10*3/uL 0.83-4.51 [facility] Work Phone: Basophil percentageon 2021 Basophils/100 WBC (Bld) 0.4 % 0-1 [facility] Work Phone: Bilirubin [Mass/Vol] 0.40 mg/dL 0.20-1.00 [facility] Work Phone: Comment on above: For patients on eltr ombopag therapy, use of Dimension [place] TBIL is not recommended. Chloride [Moles/Vol] 103 mmol/L 98-107 [facility] Work Phone: Eosinophils/100 WBC (Bld) 2.6 % 0-5 [facility] Work Phone: Glucose [Mass/Vol] 96 mg/dL 74-106 [facility] Work Phone: Neutrophils (Bld) [#/Vol] 1.8 10*3/uL 2.0-7.7 [facility] Work Phone: [phone] Neutrophils/100 WBC (Bld) 39.8 % 47-70 [facility] Work Phone: [phone] Potassium [Moles/Vol] 3.8 mmol/L 3.5-5.1 [facility] Work Phone: [phone] Protein [Mass/Vol] 7.4 g/dL 6.4-8.2 [facility] Work Phone: [phone] Sodium [Moles/Vol] 137 mmol/L 136-145 [facility] Work Phone: [phone] WBC (Bld) [#/Vol] 4.6 10*3/uL 4.4-11.0 [facility] Work Phone: [phone] Blood erythrocytes count (nu mber/volume)on 06-19-2022 RBC (Bld) [#/Vol] 4.38 10*6/uL 4.6-6.2 [facility] Work Phone: [phone] Blood hemoglobin measurement (mass/volume)on 06-19-2022 Hemoglobin (Bld) [Mass/Vol] 13.3 g/dL 13.0-16.5 [facility] Work Phone: Blood lymphocytes/100 leukoc yteson 06-19-2022 Lymphocytes/100 WBC (Bld) 40.6 % 19-41 [facility] Work Phone: [phone] Blood monocytes/100 leukocyt eson 06-19-2022 Monocytes/100 WBC (Bld) 16.4 % 0-10 [facility] Work Phone: Blood platelet mean volumeon 06-19-2022 Platelet mean volume (Bld) [Entitic vol] 10.0 fL 6.2-12.0 [facility] Work Phone: Determination of erythrocyte mean corpuscular volume (MCV)on 06-19-2022 MCV (RBC) [Entitic vol] 90.9 fL 80-94 [facility] Work Phone: Hematocrit Auto (Bld) [Volum e fraction]on 06-19-2022 Hematocrit (Bld) [Volume fraction] 39.8 % 40-54 [facility] Work Phone: Laboratory - Chemistry and C hemistry - challengeon 06-19-2022 ALP [Catalytic activity/Vol] 95 U/L 45-117 [facility] Work Phone: ALT [Catalytic activity/Vol] 18 U/L 16-61 [facility] Work Phone: CO2 [Moles/Vol] 27.0 mmol/L 21.0-32.0 [facility] Work Phone: Globulin (S) [Mass/Vol] 4.1 g/dL 2.2-4.2 [facility] Work Phone: Urea nitrogen/Creatinine [Mass ratio] 10.3 mg/mg 10-20 [facility] Work Phone: Laboratory - Hematology and Cell countson 06-19-2022 Erythrocyte distribution width (RBC) [Entitic vol] 44.1 fL 35.1-43.9 [facility] Work Phone: Erythrocyte distribution width (RBC) [Ratio] 13.3 % 11.6-14.6 [facility] Work Phone: Immature granulocytes/100 WBC (Bld) 0.200 % 0.0-0.9 [facility] Work Phone: Comment on above: IG% - Immature Granu locytes (promyelocytes, myelocytes and metamyelocytes) > 1% indicates that a LEFT SHIFT is Present. MCH (RBC) [Entitic mass] 30.4 pg 27.0-32.0 [facility] Work Phone: Nucleated RBC/100 WBC (Bld) [Ratio] 0 % 0-5 [facility] Work Phone: MCHC Auto (RBC) [Mass/Vol]on 06-19-2022 MCHC (RBC) [Mass/Vol] 33.4 g/dL 32-36 [facility] Work Phone: No Panel Informationon 06-19 Estimated GFR (MDRD) Amer 70 mL/min >60 [facility] Work Phone: Comment on above: GFR Calc Estimated GFR (MDRD) Non-Af Amer 58 mL/min >60 [facility] Work Phone: Comment on above: Non- GFR Calc Thyroid Stimulating Hormone (TSH) 2.13 uIU/mL 0.358-3.74 [facility] Work Phone: Vitamin D 25-Hydroxy 24.2 ng/mL [facility] Work Phone: Comment on above: Vitamin D 25(OH) Sta tus Range Deficiency <20 ng/mL (50nmol/L) Insufficiency 20 - 30 ng/mL (50 - 75 nmol/L) Sufficiency 30 - 100 ng/mL (75 - 250 nmol/L) Toxicity >100 ng/mL (>250 nmol/L) Platelets bldon 06-19-2022 Platelets (Bld) [#/Vol] 175 10*3/uL 150-450 [facility] Work Phone: Serum or plasma albumin donna urement (mass/volume)on 06-19-2022 Albumin [Mass/Vol] 3.3 g/dL 3.2-5.0 [facility] Work Phone: Serum or plasma albumin/glob ulin mass ratioon 06-19-2022 Albumin/Globulin [Mass ratio] 0.8 {ratio} 0.9-2.4 [facility] Work Phone: Serum or plasma calcium donna urement (mass/volume)on 06-19-2022 Calcium [Mass/Vol] 8.6 mg/dL 8.5-10.1 [facility] Work Phone: Serum or plasma creatinine m easurement (mass/volume)on 06-19-2022 Creatinine [Mass/Vol] 1.26 mg/dL 0.70-1.30 [facility] Work Phone: Comment on above: The validity of the calculated GFR & GFRAA in patients over 70 years has not been determined. Clinical correlation is essential. Serum or plasma urea nitroge n measurement (mass/volume)on 06-19-2022 Urea nitrogen [Mass/Vol] 13 mg/dL 7-18 [facility] Work Phone: Thin prep Papanicolaou smear with manual screeningon 06-19-2022 Thin prep Papanicolaou smear with manual screening 18 U/L 15-37 [facility] Work Phone: Thin prep Papanicolaou smear with manual screening 7 5-15 [facility] Work Phone: Absolute lymphocyte counton 03-04-2022 Lymphocytes Auto (Unsp spec) [#/Vol] 1.88 10*3/uL 0.83-4.51 [facility] Work Phone: Basophil percentageon 2021 Basophils/100 WBC (Bld) 0.5 % 0-1 [facility] Work Phone: Bilirubin [Mass/Vol] 0.50 mg/dL 0.20-1.00 [facility] Work Phone: Comment on above: For patients on eltr ombopag therapy, use of Dimension [place] TBIL is not recommended. Chloride [Moles/Vol] 104 mmol/L 98-107 [facility] Work Phone: [phone] Eosinophils/100 WBC (Bld) 1.0 % 0-5 [facility] Work Phone: [phone] Glucose [Mass/Vol] 122 mg/dL 74-106 [facility] Work Phone: Comment on above: Fasting Glucose resu lt from 100 to 125 mg/dL suggests IMPAIRED HOMEOSTASIS per A.D.A. criteria. Neutrophils (Bld) [#/Vol] 1.7 10*3/uL 2.0-7.7 [facility] Work Phone: [phone] Neutrophils/100 WBC (Bld) 40.1 % 47-70 [facility] Work Phone: Potassium [Moles/Vol] 3.8 mmol/L 3.5-5.1 [facility] Work Phone: Protein [Mass/Vol] 7.3 g/dL 6.4-8.2 [facility] Work Phone: Sodium [Moles/Vol] 138 mmol/L 136-145 [facility] Work Phone: WBC (Bld) [#/Vol] 4.2 10*3/uL 4.4-11.0 [facility] Work Phone: Blood erythrocytes count (nu mber/volume)on 03-04-2022 RBC (Bld) [#/Vol] 4.38 10*6/uL 4.6-6.2 [facility] Work Phone: Blood hemoglobin measurement (mass/volume)on 03-04-2022 Hemoglobin (Bld) [Mass/Vol] 13.3 g/dL 13.0-16.5 [facility] Work Phone: Blood lymphocytes/100 leukoc yteson 03-04-2022 Lymphocytes/100 WBC (Bld) 45.2 % 19-41 [facility] Work Phone: [phone] Blood monocytes/100 leukocyt eson 03-04-2022 Monocytes/100 WBC (Bld) 13.0 % 0-10 [facility] Work Phone: Blood platelet mean volumeon 03-04-2022 Platelet mean volume (Bld) [Entitic vol] 9.9 fL 6.2-12.0 [facility] Work Phone: Determination of erythrocyte mean corpuscular volume (MCV)on 03-04-2022 MCV (RBC) [Entitic vol] 92.0 fL 80-94 [facility] Work Phone: Hematocrit Auto (Bld) [Volum e fraction]on 03-04-2022 Hematocrit (Bld) [Volume fraction] 40.3 % 40-54 [facility] Work Phone: Laboratory - Chemistry and C hemistry - challengeon 03-04-2022 ALP [Catalytic activity/Vol] 96 U/L 45-117 [facility] Work Phone: ALT [Catalytic activity/Vol] 18 U/L 16-61 [facility] Work Phone: CO2 [Moles/Vol] 28.0 mmol/L 21.0-32.0 [facility] Work Phone: Globulin (S) [Mass/Vol] 3.9 g/dL 2.2-4.2 [facility] Work Phone: Urea nitrogen/Creatinine [Mass ratio] 7.9 mg/mg 10-20 [facility] Work Phone: Laboratory - Hematology and Cell countson 03-04-2022 Erythrocyte distribution width (RBC) [Entitic vol] 42.7 fL 35.1-43.9 [facility] Work Phone: Erythrocyte distribution width (RBC) [Ratio] 12.8 % 11.6-14.6 [facility] Work Phone: Immature granulocytes/100 WBC (Bld) 0.200 % 0.0-0.9 [facility] Work Phone: Comment on above: IG% - Immature Granu locytes (promyelocytes, myelocytes and metamyelocytes) > 1% indicates that a LEFT SHIFT is Present. MCH (RBC) [Entitic mass] 30.4 pg 27.0-32.0 [facility] Work Phone: Nucleated RBC/100 WBC (Bld) [Ratio] 0 % 0-5 [facility] Work Phone: MCHC Auto (RBC) [Mass/Vol]on 03-04-2022 MCHC (RBC) [Mass/Vol] 33.0 g/dL 32-36 [facility] Work Phone: No Panel Informationon 03-04 Estimated GFR (MDRD) Amer 57 mL/min >60 [facility] Work Phone: Comment on above: GFR Calc Estimated GFR (MDRD) Non-Af Amer 47 mL/min >60 [facility] Work Phone: Comment on above: Non- GFR Calc Thyroid Stimulating Hormone (TSH) 2.06 uIU/mL 0.358-3.74 [facility] Work Phone: Vitamin D 25-Hydroxy 23.2 ng/mL [facility] Work Phone: Comment on above: Vitamin D 25(OH) Sta tus Range Deficiency <20 ng/mL (50nmol/L) Insufficiency 20 - 30 ng/mL (50 - 75 nmol/L) Sufficiency 30 - 100 ng/mL (75 - 250 nmol/L) Toxicity >100 ng/mL (>250 nmol/L) Platelets bldon 03-04-2022 Platelets (Bld) [#/Vol] 173 10*3/uL 150-450 [facility] Work Phone: Serum or plasma albumin donna urement (mass/volume)on 03-04-2022 Albumin [Mass/Vol] 3.4 g/dL 3.2-5.0 [facility] Work Phone: Serum or plasma albumin/glob ulin mass ratioon 03-04-2022 Albumin/Globulin [Mass ratio] 0.9 {ratio} 0.9-2.4 [facility] Work Phone: Serum or plasma calcium donna urement (mass/volume)on 03-04-2022 Calcium [Mass/Vol] 8.2 mg/dL 8.5-10.1 [facility] Work Phone: Serum or plasma creatinine m easurement (mass/volume)on 03-04-2022 Creatinine [Mass/Vol] 1.51 mg/dL 0.70-1.30 [facility] Work Phone: Comment on above: The validity of the calculated GFR & GFRAA in patients over 70 years has not been determined. Clinical correlation is essential. Serum or plasma urea nitroge n measurement (mass/volume)on 03-04-2022 Urea nitrogen [Mass/Vol] 12 mg/dL 7-18 [facility] Work Phone: Thin prep Papanicolaou smear with manual screeningon 03-04-2022 Thin prep Papanicolaou smear with manual screening 15 U/L 15-37 [facility] Work Phone: Thin prep Papanicolaou smear with manual screening 6 5-15 [facility] Work Phone: Absolute lymphocyte counton 01-08-2022 Lymphocytes Auto (Unsp spec) [#/Vol] 1.65 10*3/uL 0.83-4.51 [facility] Work Phone: Albumin Elph [Mass/Vol]on Albumin [Mass/Vol] 3.4 g/dL [facility] Work Phone: Basophil percentageon 2021 Basophils/100 WBC (Bld) 0.2 % 0-1 [facility] Work Phone: Bilirubin [Mass/Vol] 0.50 mg/dL 0.20-1.00 [facility] Work Phone: Comment on above: For patients on eltr ombopag therapy, use of Dimension [place] TBIL is not recommended. Chloride [Moles/Vol] 104 mmol/L 98-107 [facility] Work Phone: Eosinophils/100 WBC (Bld) 1.5 % 0-5 [facility] Work Phone: Glucose [Mass/Vol] 99 mg/dL 74-106 [facility] Work Phone: Neutrophils (Bld) [#/Vol] 2.4 10*3/uL 2.0-7.7 [facility] Work Phone: Neutrophils/100 WBC (Bld) 50.6 % 47-70 [facility] Work Phone: Potassium [Moles/Vol] 3.7 mmol/L 3.5-5.1 [facility] Work Phone: Protein [Mass/Vol] 7.7 g/dL 6.4-8.2 [facility] Work Phone: Sodium [Moles/Vol] 139 mmol/L 136-145 [facility] Work Phone: WBC (Bld) [#/Vol] 4.8 10*3/uL 4.4-11.0 [facility] Work Phone: Blood erythrocytes count (nu mber/volume)on 01-08-2022 RBC (Bld) [#/Vol] 4.60 10*6/uL 4.6-6.2 [facility] Work Phone: Blood hemoglobin measurement (mass/volume)on 01-08-2022 Hemoglobin (Bld) [Mass/Vol] 14.3 g/dL 13.0-16.5 [facility] Work Phone: Blood lymphocytes/100 leukoc yteson 01-08-2022 Lymphocytes/100 WBC (Bld) 34.2 % 19-41 [facility] Work Phone: Blood monocytes/100 leukocyt eson 01-08-2022 Monocytes/100 WBC (Bld) 13.3 % 0-10 [facility] Work Phone: Blood platelet mean volumeon 01-08-2022 Platelet mean volume (Bld) [Entitic vol] 10.1 fL 6.2-12.0 [facility] Work Phone: Determination of erythrocyte mean corpuscular volume (MCV)on 01-08-2022 MCV (RBC) [Entitic vol] 94.1 fL 80-94 [facility] Work Phone: Hematocrit Auto (Bld) [Volum e fraction]on 01-08-2022 Hematocrit (Bld) [Volume fraction] 43.3 % 40-54 [facility] Work Phone: Interpretation of serum or p lasma protein pattern by immunofixation (narrative resulton 01-08-2022 Protein Fractions Immunofixation Carlni [Interp] See comment [facility] Work Phone: Comment on above: Monoclonal IgG kappa = 0.5 g/dlMonoclonal IgG lambda = 0.2 g/dlDue to the small quantity of monoclonal IgM kappa, unable toquantitate the M-spike. Iron measurement (mass/mass) on 01-08-2022 Iron (Unsp spec) [Mass/Mass] 72 ug/dL 65-175 [facility] Work Phone: Laboratory - Chemistry and C hemistry - challengeon 01-08-2022 ALP [Catalytic activity/Vol] 103 U/L 45-117 [facility] Work Phone: ALT [Catalytic activity/Vol] 18 U/L 16-61 [facility] Work Phone: CO2 [Moles/Vol] 27.0 mmol/L 21.0-32.0 [facility] Work Phone: Urea nitrogen/Creatinine [Mass ratio] 13.0 mg/mg 10-20 [facility] Work Phone: Laboratory - Hematology and Cell countson 01-08-2022 Erythrocyte distribution width (RBC) [Entitic vol] 44.8 fL 35.1-43.9 [facility] Work Phone: Erythrocyte distribution width (RBC) [Ratio] 13.2 % 11.6-14.6 [facility] Work Phone: Immature granulocytes/100 WBC (Bld) 0.200 % 0.0-0.9 [facility] Work Phone: Comment on above: IG% - Immature Granu locytes (promyelocytes, myelocytes and metamyelocytes) > 1% indicates that a LEFT SHIFT is Present. MCH (RBC) [Entitic mass] 31.1 pg 27.0-32.0 [facility] Work Phone: Nucleated RBC/100 WBC (Bld) [Ratio] 0 % 0-5 [facility] Work Phone: MCHC Auto (RBC) [Mass/Vol]on 01-08-2022 MCHC (RBC) [Mass/Vol] 33.0 g/dL 32-36 [facility] Work Phone: No Panel Informationon 01-08 Addendum Document Comment [facility] Work Phone: Comment on above: Protein electrophore sis scan will follow via computer,mail, or data management consultant delivery.Performed at: [place] [id number] Director: Alcides Alicea PhD, Phone: [phone] Estimated GFR (MDRD) Amer 72 mL/min >60 [facility] Comment on above: GFR Calc Estimated GFR (MDRD) Non-Af Amer 60 mL/min >60 [facility] Work Phone: Comment on above: Non- GFR Calc Total Iron Binding Capacity 294 ug/dL 250-450 [facility] Work Phone: 72 mL/min >60 [facility] Platelets bldon 01-08-2022 Platelets (Bld) [#/Vol] 176 10*3/uL 150-450 [facility] Work Phone: Serum [id number] measu rement by electrophoresison 01-08-2022 Alpha 1 globulin Elph [Mass/Vol] 0.2 g/dL [facility] Work Phone: Alpha 1 globulin Elph [Mass/Vol] 0.9 g/dL [facility] Work Phone: Serum globulin measurement ( mass/volume)on 01-08-2022 Globulin (S) [Mass/Vol] 3.6 g/dL [facility] Work Phone: Serum or plasma IgA measurem ent (mass/volume)on 01-08-2022 IgA [Mass/Vol] 486 mg/dL [facility] Work Phone: Serum or plasma IgG measurem ent (mass/volume)on 01-08-2022 IgG [Mass/Vol] 1393 mg/dL [facility] Work Phone: Serum or plasma IgM measurem ent (mass/volume)on 01-08-2022 IgM [Mass/Vol] 160 mg/dL [facility] Work Phone: Serum or plasma albumin donna urement (mass/volume)on 01-08-2022 Albumin [Mass/Vol] 3.3 g/dL 3.2-5.0 [facility] Work Phone: Serum or plasma albumin/glob ulin mass ratioon 01-08-2022 Albumin/Globulin [Mass ratio] 0.8 {ratio} 0.9-2.4 [facility] Work Phone: Serum or plasma beta globuli n measurement by electrophoresis (mass/volume)on 01-08-2022 Beta globulin Elph [Mass/Vol] 1.1 g/dL [facility] Work Phone: Serum or plasma calcium donna urement (mass/volume)on 01-08-2022 Calcium [Mass/Vol] 8.6 mg/dL 8.5-10.1 [facility] Work Phone: Serum or plasma creatinine m easurement (mass/volume)on 01-08-2022 Creatinine [Mass/Vol] 1.23 mg/dL 0.70-1.30 [facility] Work Phone: Comment on above: The validity of the calculated GFR & GFRAA in patients over 70 years has not been determined. Clinical correlation is essential. Serum or plasma ferritin yosef surement (mass/volume)on 01-08-2022 Ferritin [Mass/Vol] 37 ng/mL 26-388 [facility] Work Phone: Serum or plasma gamma globul in measurement by electrophoresis (mass/volume)on 01-08-2022 Gamma globulin Elph [Mass/Vol] 1.4 g/dL [facility] Work Phone: Serum or plasma immunoelectr ophoresis interpretation (nominal result)on 01-08-2022 Interpretation IEP [Interp] Comment [facility] Work Phone: Comment on above: Immunofixation shows IgG monoclonal protein with kappalight chain specificity.Please note that samples from patients receivingDARZALEX(R) (daratumumab) treatment can appear as an "IgGkappa" and mask a complete response. If this patient isreceiving CJ, this DAMARIS assay interference can be removedby ordering test number [id number]-"Immunofixation, Daratumumab-Specific, Serum" and submitting a new sample for testing orby calling the lab to add this test to the current sample.Immunofixation shows IgM monoclonal protein with kappalight chain specificity.Immunofixation shows IgG monoclonal protein with lambdalight chain specificity. Serum or plasma iron saturat ion measurement (mass fraction)on 01-08-2022 Iron saturation [Mass fraction] 24.5 % 15.0-55.0 [facility] Work Phone: Serum or plasma urea nitroge n measurement (mass/volume)on 01-08-2022 Urea nitrogen [Mass/Vol] 16 mg/dL 7-18 [facility] Work Phone: Thin prep Papanicolaou smear with manual screeningon 01-08-2022 Thin prep Papanicolaou smear with manual screening 19 U/L 15-37 [facility] Work Phone: Thin prep Papanicolaou smear with manual screening 8 5-15 [facility] Work Phone: Thin prep Papanicolaou smear with manual screening 1.0 [facility] Work Phone: Total protein bloodon 2021 Protein [Mass/Vol] 7.0 g/dL [facility] Work Phone: Basophil percentageon 2020 Basophil percentage 3.8 mg/dL 2.5-4.9 [facility] Work [facility]: Chloride [Moles/Vol] 103 mmol/L 98-107 [facility] Work Phone: Glucose [Mass/Vol] 89 mg/dL 74-106 [facility] Work Phone: Comment on above: Please note revised GLUCOSE reference range effective 2017. Potassium [Moles/Vol] 3.6 mmol/L 3.5-5.1 [facility] Work Phone: Sodium [Moles/Vol] 140 mmol/L 136-145 [facility] Work Phone: Laboratory - Chemistry and C hemistry - challengeon 11-11-2021 CO2 [Moles/Vol] 30.0 mmol/L 21.0-32.0 [facility] Work Phone: Urea nitrogen/Creatinine [Mass ratio] 12.4 mg/mg 09-11 [facility] Work Phone: No Panel Informationon 11-11 Estimated GFR (MDRD) Amer 80 mL/min >60 [facility] Work Phone: Comment on above: GFR Calc Estimated GFR (MDRD) Non-Af Amer 66 mL/min >60 [facility] Work Phone: Comment on above: Non- GFR Calc Serum or plasma albumin donna urement (mass/volume)on 11-11-2021 Albumin [Mass/Vol] 3.5 g/dL 3.2-5.0 [facility] Work Phone: Serum or plasma calcium donna urement (mass/volume)on 11-11-2021 Calcium [Mass/Vol] 8.6 mg/dL 8.5-10.1 [facility] Work Phone: Serum or plasma creatinine m easurement (mass/volume)on 11-11-2021 Creatinine [Mass/Vol] 1.13 mg/dL 0.70-1.30 [facility] Work Phone: Comment on above: The validity of the calculated GFR & GFRAA in patients over 70 years has not been determined. Clinical correlation is essential. Serum or plasma urea nitroge n measurement (mass/volume)on 11-11-2021 Urea nitrogen [Mass/Vol] 14 mg/dL 7-18 [facility] Work Phone: Urine creatinine measurement (mass/volume)on 11-11-2021 Creatinine (U) [Mass/Vol] 98.20 mg/dL NO RANGE EST. [facility] Work Phone: Urine protein measurement (m ass/volume)on 11-11-2021 Protein (U) [Mass/Vol] 183.5 mg/dL 0.0-11.8 [facility] Work Phone: Urine protein/creatinine mas s ratioon 11-11-2021 Protein/Creatinine (U) [Mass ratio] 1869 mg/g CRE 0-200 [facility] Work Phone: General Foods mix RAST testo n 06-27-2021 LDH [Catalytic activity/Vol] 160 U/L 87-241 [facility] Laboratory - Chemistry and C hemistry - challengeon 06-27-2021 Cobalamin (Vitamin B12) [Mass/Vol] 802 pg/mL 211-911 [facility] Work Phone: No Panel Informationon 06-27 Free Lambda Light Chains, Quant 31.9 mg/L High 5.7-26.3 [facility] 31.9 mg/L High 5.7-26.3 [facility] Serum immunoglobulin kappa l ight chains/immunoglobulin lambda light chains mass ratioon 06-27-2021 Immunoglobulin light chains.kappa/Immunoglobul in light chains.lambda (S) [Mass ratio] 2.82 High 0.26-1.65 [facility] Comment on above: Performed at: [address] [id number] Director: Alcides Alicea PhD, Phone: [phone] Serum or plasma immunoglobul in kappa light chains measurement (mass/volume)on 06-27-2021 Immunoglobulin light chains.kappa [Mass/Vol] 89.9 mg/L High 3.3-19.4 [facility] Thin prep Papanicolaou smear with manual screeningon 06-27-2021 Thin prep Papanicolaou smear with manual screening 160 U/L 87-241 [facility] Work Phone: CNOVon 09-19-2019 CNOV Office Visit (AGVASACC) ELIAS SHAH ([id number]) 1940 M Date Time Provider Department 09/19/19 2:00 PM HIGINIO BACON (KEE) AGVASACC During your visit today, we recorded the following information about you: Pulse Respiration Blood pressure Weight 48/minute 16/minute 128/70 88 kg Height 1.829 m Higinio Bacon APRN.CNP, CNP 09/19/2019 3:22 PM Signed [...] Encephalopathy, He Was Discharged on 07/13/2019 to [facility] T[facility]. He Continued to Have Ongoing Problems with Bradycardia, Tachycardia, Atrial Fibrillation. On July 27 He Was Diagnosed with Pneumonia and Treated with IV Vancomycin and Cefepime. Additionally, in follow-up he had melena with acute blood loss anemia and was readmitted to [facility]. He was discharged on August 26, 2019 To retirement facility. Was finally discharged back home last [...] mm [employer]. Cristhian Trifecta pericardial prosthesis at [facility] by Dr. 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 Rivers - Vitamin D deficiency PAST SURGICAL HISTORY Procedure Laterality Date - ATRIAL APPENDAGE LIGATION 07/04/2019 35 mm AtriCure clip at [facility] by Dr. Rivers - CABG (2) VEIN GRAFTS AND ARTERIAL GRAFT(S 07/04/2019 at [facility] by Dr. Rivers - REPAIR UMBILICAL HERNIA 12/04/2018 after bowel perforation done at [facility] Dr. Young - REPLAC AORT VALV PROSTH VALV 07/04/[address] Cristhian Trifecta pericardial prosthesis at [facility] by Dr. Rivers FAMILY HISTORY Problem [...] 128/70 Pulse 48 Resp 16 Ht 6' 0" (1.83m) Wt 194 lb (88.0kg) SpO2 98% [...] on. he should follow up with his city surveyor and PCP as scheduled, and only needs [...] Ann for clearance to begin cardiac rehab [facility] Cardiac Rehabilitation Hours: Thursday, Thursday, Thursday: 8:00 am to 4:30 pm Thursday and : 6:00 am to 2:00 pm The cardiac rehabilitation department is located on the first floor of the hospital, near the [facility]. For more information, call . - Weight bearing restriction remains: No lifting more than 10 lbs. You may begin to gradually increase the amount of weight bearing. Cardiac rehab will help with this. - Please see your city surveyor regularly. They will take over medication management. - Please feel free to call us if you have any post-operative concerns. Thank you for coming to see me today!! Higinio Bacon, EVALUATION ADVISOR.WASHHOUSE HAND Referring Provider: SELF [200] Allergies As of [...] [G93.40] INVALID FOR* Coronary artery disease of [place] artery of betty*INVALID FOR* S/P AVR [Z95.2] [...] Ann for clearance to begin cardiac rehab [facility] Cardiac Rehabilitation Hours: Thursday, Thursday, Thursday: 8:00 am to 4:30 pm Thursday and : 6:00 am to 2:00 pm The cardiac rehabilitation department is located on the first floor of the hospital, near the [facility]. For more information, call . - Weight bearing restriction remains: No lifting more than 10 lbs. You may begin to gradually increase the amount of weight bearing. Cardiac rehab will help with this. - Please see your city surveyor regularly. They will take over medication management. - Please feel free to call us if you have any post-operative concerns. Thank you for coming to see me today!! Higinio Bacon APRN.KEE Prescriptions ordered this encounter Disp [...] Status:Closed by HIGINIO BACON CNP on 09/19/19 [facility] PROGRESSon 09-19-2019 PROGRESS HNO ID: [id number] Author: Higinio Medina) KEE Bacon Service: ? [...] Encephalopathy, He Was Discharged on 07/13/2019 to [facility]. He Continued to Have Ongoing Problems with Bradycardia, Tachycardia, Atrial Fibrillation. On July 27 He Was Diagnosed with Pneumonia and Treated with IV Vancomycin and Cefepime. Additionally, in follow-up he had melena with acute blood loss anemia and was readmitted to [facility]. He was discharged on August 26, 2019 To retirement facility. Was finally discharged back home last [...] mm St. Cristhian Trifecta pericardial prosthesis at [facility] by Dr. 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 Rivers - Vitamin D deficiency PAST SURGICAL HISTORY Procedure Laterality Date - ATRIAL APPENDAGE LIGATION 07/04/2019 35 mm AtriCure clip at [facility] by Dr. Rivers - CABG (2) VEIN GRAFTS AND ARTERIAL GRAFT(S 07/04/2019 at [facility] by Dr. Rivers - REPAIR UMBILICAL HERNIA 12/04/2018 after bowel perforation done at [facility] Dr. Young - REPLAC AORT VALV PROSTH VALV 07/04/[address] Cristhian Trifecta pericardial prosthesis at [facility] by Dr. Rivers FAMILY HISTORY Problem [...] 128/70 Pulse 48 Resp 16 Ht 6' 0" (1.83m) Wt 194 lb (88.0kg) SpO2 98% [...] on. he should follow up with his city surveyor and PCP as scheduled, and only needs to be seen here on a as needed basis. Thanks. Electronically signed by Higinio Bacon APRN.CNP on September 19, 2019, 2:33 PM [facility] CASE MANAGEMon 08-26-2019 CASE MANAGEM HNO ID: [id number] Author: Serene Amaya Service: Care Management Author Type: ? Type: Care Mgt Progress Note Filed: 08/29/2019 4:04 PM Note Text: CARE MANAGEMENT PROGRESS NOTE SERVICE DATE: 08/29/2019 SERVICE TIME: 1200 LOS: 6 days IM letter given to patient on 08/26/2019. SIGNATURE: Janee Amaya PATIENT NAME: Elias Shah DATE: August 29, 2019 TIME: 12:17 PM PAGER/CONTACT #: [phone] [facility] CASE MANAGEM HNO ID: [id number] Author: Barbara GusmanRnSachin Roque RN Service: Care Management Author Type: Registered Nurse Type: Care Mgt Progress Note Filed: 08/26/2019 3:07 PM Note Text: CARE MANAGEMENT DISCHARGE NOTE SERVICE DATE: 08/26/2019 SERVICE TIME: 3:05 PM LOS: 6 days Admission Date: 08/20/2019 DISCHARGE ARRANGEMENT (list agency and phone number) halfway facility: Was an expedited discharge program used? [...] Transportation: [employer] and Phone #: [facility] ( [facility] ) [phone] / [phone]. Date of Trip: 08/26/2019 Type of Service: Wheelchair Is Patient Medicaid Pending: No Discussion of financial coverage occurred with Patient and Family . Battery Mechanic Location: [address] [place] [address] Destination: SNF Financial Care Management Responsibility: None Estimated Charge: na Approving Rigging Foreman: lucia ADDITIONAL CONTACT RESOURCES: . Pt is D/C to SNF today. W/C transport at 4:30 PM, Patient and RN aware. TCVM to Amalia mccormack. SIGNATURE: Barbara Roque RN PATIENT NAME: Elias Shah DATE: August 26, 2019 TIME: 3:05 PM PAGER/CONTACT #: [phone] [facility] NURSING PROGon 08-26-2019 NURSING PROG HNO ID: [id number] Author: Yenifer GusmanRn) AGUSTO Tamayo Service: ? Author Type: Registered Nurse Type: Nursing Progress Note Filed: 08/26/2019 4:15 PM Note Text: Report called to Emiliano at [facility] at [phone]. [facility] NURSING PROG HNO ID: [id number] Author: Yenifer GusmanRnSachin Tamayo RN Service: ? Author Type: Registered Nurse Type: Nursing Progress Note Filed: 08/26/2019 9:04 AM Note Text: Dr Peñaloza notified of pt's blood pressure and heart rate, potassium level. Ordered to hold Metoprolol and he will order Hydralazine. also notified of pt's c/o nausea and headache. PRN Zofran given. [facility] NURSING PROG HNO ID: [id number] Author: Rica (Rn) AGUSTO Garcia Service: ? Author Type: Registered Nurse Type: Nursing Progress Note Filed: 08/26/2019 5:53 AM Note Text: Nursing Progress Note Patient Name: Elias Shah Patient Location: [place] [address] [address]- Daily Note: 0525: Paged sound at #[phone] regarding pt BP of 169/70 and HR 54, pt asymptomatic. 0546: Talked to Dr. Keane, orders to give Losartan early. This note was completed by: Rica Garcia RN [facility] PLAN OF CAREon 08-26-2019 PLAN OF CARE HNO ID: [id number] Author: Craig Duron (Pharmacist) Service: Pharmacy Author [...] Medication List. Patient discharged today to [facility] CRAIG DURON PHARMACIST August 26, 2019 [...] HYDROcodone-acetamino phen 5-325 mg per tablet [facility] PROGRESSon 08-26-2019 PROGRESS HNO ID: [id number] Author: Janee Mccauley Service: General Surgery Author Type: Nurse Specialist Type: Progress Notes Filed: 08/26/2019 9:09 AM Note Text: Emergency General Surgery Progress Note SERVICE DATE: 08/26/2019 SERVICE TIME: 0700 SUBJECTIVE: No acute events overnight. States slept "fair", Reports pain right upper chest at IANDD [...] O2 Therapy: Room Air IANDO: Date 08/25/19 07 - 08/26/1965808/26/19 07 - 08/27/19 0659 Shift 7127-3453 2434-9092 4029-9915 24 Hour Total 0539-2980 7388-2442 2044-3747 24 Hour Total INTAKE PO 1080 264 495 4366 PO 1080 706 549 2084 Shift Total 1080 305 515 2526 OUTPUT Urine 100 100 Void (ml) 100 [...] INTRAVENOUS q 12 H Labs: Recent Labs 08/26/19 0519 08/25/19 0742 08/25/19 0245 NA 142 -- [...] mm St. Cristhian Trifecta pericardial prosthesis at [facility] by Dr. Rivers - Essential hypertension 02/11/2019 - Hyperlipidemia 02/01/2019 79 year old male with PMH HTN, HLD, atrial fibrillation, incarcerated umbilical hernia s/p SBR and hernia repair 11/[address] Felton at [facility], CAD and now s/p 2 vessel CABG [...] Discussed with attending: Dr Farris SIGNATURE: Janee Mccauley, EVALUATION ADVISOR.ROUGE PRESSER PATIENT NAME: Elias Shah DATE: August 26, 2019 TIME: 6:17 AM Emergency General Surgery Service Pager: For questions or concerns Mon-Fri 6a-5p please page [phone]. After 5pm and on Weekends and Holidays, please page [phone]. [facility] THERAPY NTon 08-26-2019 THERAPY NT HNO ID: [id number] Author: Aminata Lir/Carleen Durand Service: Occupational Therapy Author Type: Occupational Therapist Type: Therapy (PT/OT/Speech/Resp) Filed: 08/26/2019 12:01 PM Note Text: OCCUPATIONAL THERAPY MISSED VISIT SERVICE DATE: 08/26/2019 SERVICE TIME: 1147 to 1147 ROOM: [place] [address] Attempted Treatment. Patient not seen due to Declined. Patient reports he has been nauseas all day and does not want to do therapy at this time. Will follow up as able. SIGNATURE: ERIC Mcclain/Carroll PATIENT NAME: Elias Shah DATE: August 26, 2019 TIME: 12:01 PM [facility] CONSULTon 08-25-2019 CONSULT HNO ID: [id number] Author: Lisette Murillo Service: General Surgery Author Type: Resident Type: Consults Filed: 08/25/2019 4:06 PM Note Text: Attestation signed by Jerilyn Farris at 08/26/2019 4:23 PM ==== SURGERY STAFF: I discussed the management of this case with the president and agree with the plan of care [...] abscess/chest wall. Patient reports that he noticed "a few days ago" that he started having pain like when a pimple is coming up." noticed that he started to have redness [...] mm St. Cristhian Trifecta pericardial prosthesis at [facility] by Dr. 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 Rivers - Vitamin D deficiency PAST SURGICAL HISTORY Procedure Laterality Date - ATRIAL APPENDAGE LIGATION 07/04/2019 35 mm AtriCure clip at [facility] by Dr. Rivers - CABG (2) VEIN GRAFTS AND ARTERIAL GRAFT(S 07/04/2019 at [facility] by Dr. Rivers - REPAIR UMBILICAL HERNIA 12/04/2018 after bowel perforation done at [facility] Dr. Young - REPLAC AORT VALV PROSTH VALV 07/04/[address] Cristhian Trifecta pericardial prosthesis at [facility] by Dr. Rivers FAMILY HISTORY Problem [...] described above. 4. Otherwise no acute disease. Charge Histotechnologist: FCO Transcribe Date/Time: Aug 23 2019 4:28P Dictated by : PEGGY AVILA MD This examination was interpreted and the report reviewed and electronically signed by: PEGGY AVILA MD on Aug 23 2019 4:31PM EST Impression/Recommenda tions Patient is an 79 yo male with PMH HTN, HLD, atrial fibrillation, incarcerated umbilical hernia s/p SBR and hernia repair 11/[address] Felton at [facility], [facility] and now s/p 2 vessel CABG and aortic valve replacement 07/04/[address] Rivers who presented with dark stools and concern for GIB. Surgery consulted HD 5 for "abscess/chest wall." Furuncle - small chest wall lesion with [...] TIME: 3:48 PM PAGER/CONTACT #: [phone] [facility] CONSULT PROGon 08-25-2019 CONSULT PROG HNO ID: [id number] Author: Zacarias Miles Service: Gastroenterology Author Type: [...] (Src) 98.2 (Oral) Resp 16 Ht 6' 0" (1.83m) Wt 201 lb 11.5 oz (91.5kg) [...] iron supplement for about a week, call [phone] to schedule appointment with Dr. Peter). ? GI will sign off call with questions SIGNATURE: Zacarias Miles APRN.KEE PATIENT NAME: Elias Shah DATE: August 25, 2019 TIME: 2:46 PM NUMBER: [phone] [facility] NURSING PROGon 08-25-2019 NURSING PROG HNO ID: [id number] Author: Yenifer (Rn) AGUSTO Tamayo Service: ? Author Type: Registered Nurse Type: Nursing Progress Note Filed: 08/25/2019 9:25 AM Note Text: Dr Peñaloza notified of pt's c/o painful rash on forehead and raised, reddened cyst-like area to right breast. He will address. [facility] NURSING PROG HNO ID: [id number] Author: Fernanda Shaikh) AGUSTO Diaz Service: ? Author Type: Registered Nurse Type: Nursing Progress Note Filed: 08/25/2019 3:45 AM Note Text: Nursing Progress Note Patient Name: Elias Shah Patient Location: [place] [address]/[facility]- [address]- Daily Note: 0255: RN paged Sound at #[phone] regarding pt's BP of 170/72. Pt asymptomatic. No new orders at this time. RN will continue to monitor. This note was completed by: Fernanda Diaz RN [facility] NUTRITIONon 08-25-2019 NUTRITION HNO ID: [id number] Author: Sydnee Fisher RD (Ld) Service: Nutrition [...] was too hard, but otherwise per pt, " the food is really good." Encouraged pt to continue with adequate oral [...] August 25, 2019 TIME: 8:09 AM PAGER: [phone] [facility] PROCEDUREon 08-25-2019 PROCEDURE HNO ID: [id number] Author: Lisette Murillo Service: General Surgery Author Type: Resident Type: Procedures Filed: 08/25/2019 5:56 PM Note Text: Attestation signed by Jerilyn Farris at 08/26/2019 4:23 PM Jerilyn Farris MD August 26, 2019 BEDSIDE PROCEDURE NOTE PROCEDURE DATE: August 25, 2019 PROCEDURE START TIME: 4:50 pm PRIMARY PROCEDURALIST: Lisette Murillo MD POST HOLE DIGGER(S): None INFORMED CONSENT: Informed Consent obtained and [...] 25, 2019 TIME: 5:53 PM PAGER/CONTACT #: [phone] [facility] PROGRESSon 08-25-2019 PROGRESS HNO ID: [id number] Author: Ben Peñaloza Service: Hospital Medicine Author [...] (Src) 98.2 (Oral) Resp 16 Ht 6' 0" (1.83m) Wt 201 lb 11.5 oz (91.5kg) [...] -- 08/24/19 0945 activity - mobilize patient ([place]) 08/20/19 1615 vte pharmacologic prophylaxis contraindicated ([place] 08/20/19 1615 pneumatic compression stockings ([place]) VTE Prophylaxis: VTE prophylaxis appropriate SIGNATURE: Ben Peñaloza MD PATIENT NAME: Elias Shah DATE: 08/25/2019 TIME: 3:07 PM PAGER: [phone] [facility] PROGRESS HNO ID: [id number] Author: Craig Duron (Pharmacist) Service: Pharmacy Author [...] in the care for this patient. Signature: CRAIG DURON PHARMACIST Pager/Extension: [phone] [facility] THERAPY NTon 08-25-2019 THERAPY NT HNO ID: [id number] Author: Nohemi Meehan Service: Physical Therapy Author Type: Physical Therapist Type: Therapy (PT/OT/Speech/Resp) Filed: 08/25/2019 1:57 PM Note Text: Physical Therapy Treatment SERVICE DATE: 08/25/2019 SERVICE TIME: 1055 to 1118 ROOM: [place] [address] Recommended Discharge Disposition: Subacute/SNF Justification For Post [...] gait and mobility-other Interventions Provided: Gait Training (17164);Therapeutic Activity (71596) Therapeutic Activity (21950) Treatment Minutes: 15 1 unit Skilled Intervention(s): [...] marching, ) x 10-15 reps. Gait Training (81201) Treatment Minutes: 8 1 unit Skilled Intervention(s): [...] of pain and motivated to get better. "Thanks for working with me." Home Environment Patient Lives With: Family(sister) Assistance [...] Suzan decreased;Step length decreased;Non-functio nal gait speed [facility]: 7: Walk 25 feet or more Please [...] August 25, 2019 TIME: 1:57 PM [facility] CASE MANAGEMon 08-24-2019 CASE MANAGEM HNO ID: [id number] Author: Barbara Roque RN Service: Care Management Author Type: Registered Nurse Type: Care Mgt Progress Note Filed: 08/24/2019 3:52 PM Note Text: CARE MANAGEMENT PROGRESS NOTE SERVICE DATE: 08/24/2019 SERVICE TIME: 3:42 PM LOS: 4 days Needs Prior to Discharge: Discharge Transportation [facility] has accepted pt and he is ready to D/C when medically stable. Will need W/C transport. ADDENDUM: Notified pt's sister, Amalia of D/C plan. SIGNATURE: Barbara Roque RN PATIENT NAME: Elias Yen Leonid DATE: August 24, 2019 TIME: 3:42 PM PAGER/CONTACT #: [phone] [facility] CASE MANAGEM HNO ID: [id number] Author: Barbara Roque RN Service: Care Management Author Type: Registered Nurse Type: Care Mgt Progress Note Filed: 08/24/2019 1:01 PM Note Text: CARE MANAGEMENT PROGRESS NOTE SERVICE DATE: 08/24/2019 SERVICE TIME: 12:59 PM LOS: 4 days FREEDOM OF CHOICE GIVEN: Yes Pt does not think he can do 3 hrs of intensive therapy at Rehab. Preference: Would like to go to [facility]. [facility]. Referral placed. SIGNATURE: Barbara Roque RN PATIENT NAME: Elias Yen Leonid DATE: August 24, 2019 TIME: 12:58 PM PAGER/CONTACT #: [phone] [facility] CASE MANAGEM HNO ID: [id number] Author: Barbara Roque RN Service: Care Management Author Type: Registered Nurse Type: Care Mgt Progress Note Filed: 08/24/2019 12:58 PM Note Text: CARE MANAGEMENT PROGRESS NOTE SERVICE DATE: 08/24/2019 SERVICE TIME: 10:34 AM LOS: 4 days FREEDOM OF CHOICE GIVEN: Yes Met with pt, PT/OT rec Acute Rehab. Pt is from [place] and wants to stay in the area Preference: [facility] [facility] Referral placed. Pt would like CM to let his sister, Amalia know and she will be hame after 1 PM today. Pt will need transport at D/C, as sister does not drive long distance nor on the freeway. SIGNATURE: Barbara Roque RN PATIENT NAME: Elias Shah DATE: August 24, 2019 TIME: 10:34 AM PAGER/CONTACT #: [phone] [facility] CONSULT PROGon 08-24-2019 CONSULT PROG HNO ID: [id number] Author: Zacarias Miles Service: Gastroenterology Author Type: [...] (Src) 98.2 (Oral) Resp 20 Ht 6' 0" (1.83m) Wt 199 lb 1.2 oz (90.3kg) [...] for about a week). SIGNATURE: Zacarias Miles APRN.WASHHOUSE HAND PATIENT NAME: Elias Shah DATE: August 24, 2019 TIME: 2:10 PM NUMBER: [phone] [facility] PROGRESSon 08-24-2019 PROGRESS HNO ID: [id number] Author: Ben Peñaloza Service: Hospital Medicine Author [...] (Src) 98.4 (Oral) Resp 20 Ht 6' 0" (1.83m) Wt 199 lb 1.2 oz (90.3kg) [...] -- 08/24/19 0945 activity - mobilize patient ([place]) 08/20/19 1615 vte pharmacologic prophylaxis contraindicated ([place] 08/20/19 1615 pneumatic compression stockings ([place] VTE Prophylaxis: VTE prophylaxis appropriate SIGNATURE: Ben Peñaloza MD PATIENT NAME: Elias Shah DATE: 08/24/2019 TIME: 3:39 PM PAGER: [phone] [facility] THERAPY NTon 08-24-2019 THERAPY NT HNO ID: [id number] Author: Chloe (Otr/LSachin Asher Service: Occupational Therapy Author Type: Occupational Therapist Type: Therapy (PT/OT/Speech/Resp) Filed: 08/24/2019 11:16 AM Note Text: Occupational Therapy Evaluation SERVICE DATE: 08/24/2019 SERVICE TIME: 0955 to 1023 ROOM: [place] [address] Recommended Discharge Disposition: Acute Rehab Recommended Discharge [...] Patient reports being motivated for rehab when "they have my medical issues sorted out and I know what's going on." Patient Disposition at Start of Session: OOB in Chair;Call [facility] in Reach Tolerated Full Session Occupational Therapy Problem List: Cognitive Deficit;Education Deficit;Safety Deficits;Impaired Self Care;Decreased Activity Tolerance;Decreased Strength;Functional Mobility Impairment;Balance Impaired Patient /Caregiver Goals: Care For Self("I'd like to get stronger once they find why I'm bleeding") Goals for Plan of Care: Able to [...] Cognitive Functions and Awareness Interventions Provided: Evaluation;Self Longterm Management (90100) $ Evaluation-Moderate (33147) Billed Units: 1 unit OT Evaluation Moderate [...] valve replacement, h/o encephalopathy, anemia, HTN. Self Longterm Management (27564) Treatment Minutes: 13 1 unit Skilled Intervention(s): [...] mm St. Cristhian Trifecta pericardial prosthesis at [facility] by Dr. Rivers - Essential hypertension - Hyperlipidemia Reason for Occupational Therapy Consult: recent change in ability to complete self care Relevant Past Medical History: aortic stenosis, anemia, afib, Aortic Valve replacement (sternal precauts). Patient Report: Patient pleasant, agreeable to therapy. No report of pain, just, "my left side is just so weak and tired". Patient reports, "I know I need to get some rehab, but I'm not leaving here until they can tell me where my bleeding is coming from. I'm very frightened by all of this." Home Environment Patient Lives With: Family(sister) Assistance [...] August 24, 2019 TIME: 10:46 AM [facility] THERAPY NT HNO ID: [id number] Author: Nohemi GusmanPtSachin Meehan Service: Physical Therapy Author Type: Physical Therapist Type: Therapy (PT/OT/Speech/Resp) Filed: 08/24/2019 4:03 PM Note Text: Physical Therapy Evaluation SERVICE DATE: 08/24/2019 SERVICE TIME: 0830 to 0855 ROOM: [id number] Recommended Discharge Disposition: Acute Rehab Justification For [...] and mobility-other Interventions Provided: Evaluation;Therapeuti c Activity (48394) $ Evaluation-Moderate (56567) Billed Units: 1 unit History and examination of body systems see assessment section above. This patient?s clinical presentation is evolving. The patient required a moderate complexity evaluation. Therapeutic Activity (24888) Treatment Minutes: 9 1 unit Skilled Intervention(s): [...] agreeable to acute rehab to maximize independence "I would like to get better." Home Environment Patient Lives With: Family(sister) Assistance [...] August 24, 2019 TIME: 4:01 PM [facility] ANES Namita 08-23-2019 ANES POST HNO ID: [id number] Author: Alli Lamb Service: Anesthesiology Author Type: Physician Type: Anesthesia PostOp Filed: 08/23/2019 12:36 PM Note Text: POST ANESTHESIA EVALUATION NOTE SERVICE DATE: 08/23/2019 SERVICE TIME: 123 : 1938 Vitals: 08/22/194 08/23/19 0255 08/23/19 0812 08/23/19 1021 Temp: 36.7 ?C (98.1 ?F) 37 ?C (98.6 ?F) 36.7 ?C (98.1 ?F) 36.7 ?C (98.1 ?F) 08/23/1944 08/23/19 1021 08/23/19 1207 08/23/19 1233 BP: 168/80 169/67 141/67 161/76 08/23/1944 08/23/19 1021 08/23/19 1207 08/23/19 1233 Pulse: [...] 23, 2019 TIME: 12:36 PM PAGER/CONTACT #: [facility] ANES PREOPon 08-23-2019 ANES PREOP HNO ID: [id number] Author: Alli Lamb Service: Anesthesiology Author Type: [...] 2 Acute Encephalopathy Coronary Artery Disease of [place] Artery of [place] Heart With Stable Angina Pectoris (Hcc) S/P [...] mm St. Cristhian Trifecta pericardial prosthesis at [facility] by Dr. 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 Rivers - Vitamin D deficiency PAST SURGICAL HISTORY Procedure Laterality Date - ATRIAL APPENDAGE LIGATION 07/04/2019 35 mm AtriCure clip at [facility] by Dr. Rivers - CABG (2) VEIN GRAFTS AND ARTERIAL GRAFT(S 07/04/2019 at [facility] by Dr. Rivers - REPAIR UMBILICAL HERNIA 12/04/2018 after bowel perforation done at [facility] Dr. Young - REPLAC AORT VALV PROSTH VALV 07/04/[address] Cristhian Trifecta pericardial prosthesis at [facility] by Dr. Rivers FAMILY HISTORY Problem [...] 12 H Aijaz Brittani 3 mL at 08/23/19816 - [MAR Hold due to Transfer] NaCl [...] August 23, 2019 TIME: 11:36 AM CSN: [id number] [facility] CASE MGT INGARRY Jones 2018 CASE MGT INIT DEVAN HNO ID: [id number] Author: Barbara (Rn) AGUSTO Roque Service: Care [...] Current Advance Directive: Health Care Power of Financial Director In Chart: No Cube Cutter Attempted to Assist with AD Completion: Yes [...] Walker Has the Patient Been in a [facility] Facility in the Past 30 days? Unknown [...] 0 I feel financially burdened by my [id number] expenses for my prescription medication: Disagree completely [...] 23, 2019 TIME: 4:20 PM PAGER/CONTACT #: [phone] [facility] OPERATIVE NOon 08-23-2019 OPERATIVE NO HNO ID: [id number] Author: Zora Peter Service: Gastroenterology Author Type: Physician Type: Operative Report Filed: 08/23/2019 12:03 PM Note Text: OPERATIVE/PROCEDURE REPORT LOG ID: [id number] Surgery/Procedure Date: 08/23/2019 Incision/Procedure Start Time: 11:43 AM Incision Close/Procedure End Time: 11:58 AM Surgeon(s)/Procedural ist(s) and High Speed Printer Operator(s): Surgeon(s) and Role: * Zora Peter [...] 23, 2019 TIME: 12:00 PM PAGER/CONTACT #: [phone] [facility] OPERATIVE NO HNO ID: [id number] Author: Zora Peter Service: Gastroenterology Author Type: Physician Type: Operative Report Filed: 08/23/2019 12:02 PM Note Text: OPERATIVE/PROCEDURE REPORT LOG ID: [id number] Surgery/Procedure Date: 08/23/2019 Incision/Procedure Start Time: 11:43 AM Incision Close/Procedure End Time: 11:58 AM Surgeon(s)/Procedural ist(s) and High Speed Printer Operator(s): Surgeon(s) and Role: * Zora Peter [...] 23, 2019 TIME: 12:00 PM PAGER/CONTACT #: [phone] [facility] PROGRESSon 08-23-2019 PROGRESS HNO ID: [id number] Author: Roger Castillo Service: Hospital Medicine Author Type: Physician Type: Progress Notes Filed: 08/23/2019 3:44 PM Note Text: DEPARTMENT OF HOSPITAL MEDICINE PROGRESS NOTE SERVICE DATE: 08/23/2019 SERVICE TIME: 3:37 PM Hospital Medicine/Primary Attending: Roger Castillo MD NIGHT AND WEEKEND COVERAGE: After 7pm please page [phone] CHIEF COMPLAINT: Shortness of breath SUBJECTIVE: Patient states he has been short of breath on exertion. He has not had difficulty sleeping. He denies any chest pain with exertion. He is about one month post bypass and aortic valve replacement. OBJECTIVE: PHYSICAL EXAM: BP 151/54 Pulse 67 Temp (Src) 98.8 (Temporal Artery) Resp 18 Ht 6' 0" (1.83m) Wt 199 lb 1.2 oz (90.3kg) [...] 23, 2019 TIME: 3:37 PM PAGER/CONTACT #: [phone] [facility] PT EDon 08-23-2019 PT ED HNO ID: [id number] Author: Nichole (Rn) Rajeev RN Service: Nursing Author Type: Registered Nurse [...] Signed By: Nichole Boo RN In Department: [facility] PT ED HNO ID: [id number] Author: Ina (Rn) AGUSTO Ryan Service: Nursing Author Type: Registered [...] Signed By: Ina Ryan RN In Department: [facility] ANES Namita 08-22-2019 ANES POST HNO ID: [id number] Author: Marlon Womack Service: Anesthesiology Author Type: Physician Type: Anesthesia PostOp Filed: 08/22/2019 4:50 PM Note Text: POST ANESTHESIA EVALUATION NOTE SERVICE DATE: 08/22/2019 SERVICE TIME: 4:49 PM : 1938 Vitals: 08/22/19 0130 08/22/19 0813 08/22/19 1107 08/22/19 1616 Temp: 36.4 ?C (97.5 ?F) 36.9 ?C (98.4 ?F) 36.8 ?C (98.2 ?F) 36.8 ?C (98.2 ?F) 08/22/19 1313 08/22/19 1354 08/22/19 14308/22/19 1616 BP: 165/76 150/72 141/63 178/75 08/22/19 [...] 2019 TIME: 4:49 PM PAGER/CONTACT #: [facility] ANES PREOPon 08-22-2019 ANES PREOP HNO ID: [id number] Author: Marlon Womack Service: Anesthesiology Author Type: [...] 2 Acute Encephalopathy Coronary Artery Disease of [place] Artery of [place] Heart With Stable Angina Pectoris (Hcc) S/P [...] mm St. Cristhian Trifecta pericardial prosthesis at [facility] by Dr. 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 Rivers - Vitamin D deficiency PAST SURGICAL HISTORY Procedure Laterality Date - ATRIAL APPENDAGE LIGATION 07/04/2019 35 mm AtriCure clip at [facility] by Dr. Rivers - CABG (2) VEIN GRAFTS AND ARTERIAL GRAFT(S 07/04/2019 at [facility] by Dr. Rivers - REPAIR UMBILICAL HERNIA 12/04/2018 after bowel perforation done at [facility] Dr. Young - REPLAC AORT VALV PROSTH VALV 07/04/[address] Cristhian Trifecta pericardial prosthesis at [facility] by Dr. Rievrs FAMILY HISTORY Problem Relation Age of Onset [...] tab(s) (COZAAR) 50 mg ORAL BID Dunia Bancroft 50 mg at 08/22/19 0840 - [MAR Hold due to Transfer] metoprolol tartrate (short acting) 25 mg tab(s) (LOPRESSOR) 25 mg ORAL BID Dunia Bancroft 25 mg at 08/21/192003 - [MAR Hold due to Transfer] tamsulosin ER 0.4 mg cap(s) (FLOMAX) 0.4 mg ORAL DAILY Dunia Ty 0.4 mg at 08/21/19 0953 - [MAR Hold due to Transfer] NaCl 0.9% 3-5 mL 3-5 mL INTRAVENOUS q 12 H Dunia Crawford 3 mL at 08/22/19 0840 - [MAR Hold due to Transfer] NaCl 0.9% 2-10 mL 2-10 mL INTRAVENOUS q 12 H Dunia Crawford 10 mL at 08/22/19 0900 - [MAR [...] August 22, 2019 TIME: 12:40 PM CSN: [id number] [facility] CASE MANAGEMon 08-22-2019 CASE MANAGEM HNO ID: [id number] Author: Barbara GusmanRn) AGUSTO Roque Service: Care Management Author Type: [...] 22, 2019 TIME: 2:29 PM PAGER/CONTACT #: [phone] [facility] CASE MANAGEM HNO ID: [id number] Author: Serene Amaya Service: Care Management Author Type: ? Type: Care Mgt Progress Note Filed: 08/22/2019 11:08 AM Note Text: CARE MANAGEMENT PROGRESS NOTE SERVICE DATE: 08/22/2019 SERVICE TIME: 1015 LOS: 2 days IM letter given to patient on . SIGNATURE: Serene Elijah Amaya PATIENT NAME: Elias Shah DATE: August 22, 2019 TIME: 11:07 AM PAGER/CONTACT #: [phone] [facility] NURSING PROGon 08-22-2019 NURSING PROG HNO ID: [id number] Author: Rica Garcia RN Service: ? Author Type: Registered Nurse Type: Nursing Progress Note Filed: 08/22/2019 12:42 AM Note Text: Nursing Progress Note Patient Name: Eilas Shah Patient Location: [place] [address] [address]- Daily Note: 2352: Sound text paged, BP 170/62 and HR 50, pt not symptomatic. 2354: Dr. Rubi called back ordered 50mg PO Hydralazine. Will continue to monitor. This note was completed by: Rica Garcia RN [facility] NUTRITIONon 08-22-2019 NUTRITION HNO ID: [id number] Author: Sydnee Fisher RD (Ld) Service: Nutrition [...] 2 Acute Encephalopathy Coronary Artery Disease of [place] Artery of [place] Heart With Stable Angina Pectoris (Hcc) S/P [...] mm St. Cristhian Trifecta pericardial prosthesis at [facility] by Dr. Rivers - S/P CABG x 2 07/04/2019 at [facility] by Dr. Rivers - Vitamin D deficiency PAST SURGICAL HISTORY Procedure Laterality Date - ATRIAL APPENDAGE LIGATION 07/04/2019 35 mm AtriCure clip at [facility] by Dr. Rivers - CABG (2) VEIN GRAFTS AND ARTERIAL GRAFT(S 07/04/2019 at [facility] by Dr. Rivers - REPAIR UMBILICAL HERNIA 12/04/2018 after bowel perforation done at [facility] Dr. Young - REPLAC AORT VALV PROSTH VALV 07/04/[address] Cristhian Trifecta pericardial prosthesis at [facility] by Dr. Rivers Social History Socioeconomic [...] file Gets together: Not on file Attends yazidism service: Not on file Active member of [...] having EGD this am. Pt reports has "good appetite." GI symptoms: none Nutrition Abdominal Exam:, abdomen [...] oz) 04/13/19 : 88.9 kg (196 lb) [place] Body Weight: 80.9kg Resting Metabolic Rate: 1650 Estimated kilocalorie needs: 1583-1782 kilocalories determined by 25-30 kcal/kg Estimated protein needs: 97-105 grams determined by 1.2-1.3 g/kg [place] weight Estimated fluid needs: 7283-2207 milliliters based on 1 mL per kcal [...] 0659 08/22/19 07 - 08/23/19 0659 Shift 9689-1663 6901-2304 9591-7176 24 Hour Total 3423-5936 8882-3827 5968-8102 24 Hour Total INTAKE PO 550 850 0800 PO 388 718 2373 Shift Total 956 649 5493 OUTPUT Urine 200 1545 1745 Void (ml) [...] August 22, 2019 TIME: 12:02 PM PAGER: [phone] [facility] OPERATIVE NOon 08-22-2019 OPERATIVE NO HNO ID: [id number] Author: Zroa Peter Service: Gastroenterology Author Type: Physician Type: Operative Report Filed: 08/22/2019 1:40 PM Note Text: OPERATIVE/PROCEDURE REPORT LOG ID: [id number] Surgery/Procedure Date: 08/22/2019 Incision/Procedure Start Time: 1:29 PM Incision Close/Procedure End Time: 1:33 PM Surgeon(s)/Procedural ist(s) and High Speed Printer Operator(s): Surgeon(s) and Role: * Zora Peter [...] 2019 TIME: 1:36 PM PAGER/CONTACT #: [facility] PROGRESSon 08-22-2019 PROGRESS HNO ID: [id number] Author: Roger Castillo Service: Hospital Medicine Author Type: Physician Type: Progress Notes Filed: 08/22/2019 2:45 PM Note Text: DEPARTMENT OF HOSPITAL MEDICINE PROGRESS NOTE SERVICE DATE: 08/22/2019 SERVICE TIME: 8:34 AM Hospital Medicine/Primary Attending: Roger Castillo MD NIGHT AND WEEKEND COVERAGE: After 7pm please page [phone] CHIEF COMPLAINT: UGIB SUBJECTIVE: Patient has had no further GI bleeding. He is going for an endoscopy later this morning. He is not having any dizziness, chest pain, shortness of breath, melena, hematochezia, or hematemesis. OBJECTIVE: PHYSICAL EXAM: BP 159/66 Pulse 64 Temp (Src) 98.4 (Oral) Resp 16 Ht 6' 0" (1.83m) Wt 198 lb 13.7 oz (90.2kg) [...] 22, 2019 TIME: 8:34 AM PAGER/CONTACT #: [phone] [facility] PT EDon 08-22-2019 PT ED HNO ID: [id number] Author: Adriane GusmanRn) AGUSTO Avelar Service: ? [...] Electronically signed by: Adriane Avelar RN [facility] PT ED HNO ID: [id number] Author: Sherrie GusmanRn) AGUSTO Bradshaw Service: Nursing Author Type: Registered [...] None Electronically Signed By: Sherrie Bradshaw RN [facility] CONSULTon 08-21-2019 CONSULT HNO ID: [id number] Author: Niesha Musa Service: Gastroenterology Author Type: [...] mm St. Cristhian Trifecta pericardial prosthesis at [facility] by Dr. Rivers - S/P CABG x 2 07/04/2019 at [facility] by Dr. Rivers - Vitamin D deficiency PAST SURGICAL HISTORY Procedure Laterality Date - ATRIAL APPENDAGE LIGATION 07/04/2019 35 mm AtriCure clip at [facility] by Dr. Rivers - CABG (2) VEIN GRAFTS AND ARTERIAL GRAFT(S 07/04/2019 at [facility] by Dr. Rivers - REPAIR UMBILICAL HERNIA 12/04/2018 after bowel perforation done at [facility] Dr. Young - REPLAC AORT VALV PROSTH VALV 07/04/[address] Cristhian Trifecta pericardial prosthesis at [facility] by Dr. Rivers FAMILY HISTORY Problem [...] August 21, 2019 TIME: 12:18 PM PAGER: [phone] [facility] PROGRESSon 08-21-2019 PROGRESS HNO ID: [id number] Author: Roger Castillo Service: Hospital Medicine Author Type: Physician Type: Progress Notes Filed: 08/21/2019 9:06 AM Note Text: DEPARTMENT OF HOSPITAL MEDICINE PROGRESS NOTE SERVICE DATE: 08/21/2019 SERVICE TIME: 9:00 AM Hospital Medicine/Primary Attending: Roger Castillo MD NIGHT AND WEEKEND COVERAGE: After 7pm please page [phone] CHIEF COMPLAINT: Upper back pain SUBJECTIVE: Patient [...] (Src) 98.4 (Oral) Resp 20 Ht 6' 0" (1.83m) Wt 198 lb 10.2 oz (90.1kg) [...] 21, 2019 TIME: 9:00 AM PAGER/CONTACT #: [phone] [facility] HISTORY PHYSICALon HISTORY PHYSICAL HNO ID: [id number] Author: Dunia Crawford Service: Hospital Medicine Author Type: Physician Type: HANDP Filed: 08/20/2019 8:42 PM Note Text: DEPARTMENT OF HOSPITAL MEDICINE HISTORY AND PHYSICAL EXAM SERVICE DATE: 08/20/2019 SERVICE TIME: 3:00 PM Primary Care Physician: Mal Main MD NIGHT AND WEEKEND COVERAGE: After 7pm, please call cross cover pager #[phone] Subjective CHIEF COMPLAINT: Weakness, BARDALES, melena HPI: This is a 79 year old male who presents with above complaints that started today. Went to get up for bathroom and was having shortness of breath and was feeling weak. Uses a walker. In the bathroom had a large "explosive" bowel movement that was black and foul [...] mm St. Cristhian Trifecta pericardial prosthesis at [facility] by Dr. Rivers - S/P CABG x 2 07/04/2019 at [facility] by Dr. Rivers - Vitamin D deficiency PAST SURGICAL HISTORY Procedure Laterality Date - ATRIAL APPENDAGE LIGATION 07/04/2019 35 mm AtriCure clip at [facility] by Dr. Rivers - CABG (2) VEIN GRAFTS AND ARTERIAL GRAFT(S 07/04/2019 at [facility] by Dr. Rivers - REPAIR UMBILICAL HERNIA 12/04/2018 after bowel perforation done at [facility] Dr. Young - REPLAC AORT VALV PROSTH VALV 07/04/[address] Cristhian Trifecta pericardial prosthesis at [facility] by Dr. Rivers FAMILY HISTORY Problem [...] (Src) 98.4 (Oral) Resp 20 Ht 6' 0" (1.83m) Wt 199 lb (90.3kg) SpO2 99% [...] Prophylaxis: Contraindicated active bleeding Disposition: Home with [facility] Plan of care discussed with: Patient, Family/Significant Other: sister, Emergeny Room Physician and RN SIGNATURE: Dunia Crawford DO PATIENT NAME: Elias Shah DATE: August 20, 2019 TIME: 3:39 PM PAGER/CONTACT #: [phone] [facility] HOSPon 08-20-2019 HOSP Patient:Manav Shah rd MRN: Height:6' 0"(1.829 m) Weight:199 lb 1.2 oz (90.3 kg) [...] Acute encephalopathy [G93.40] Coronary artery disease of [place] artery of [place] heart with stable angina pectoris (HCC) [I25.118] [...] pt fell at home, was taken to [facility] then transferred here. He was diagnosed with anemia and given blood transfusion. Pt had EGD and will need colonoscopy. CAGB x 2 done 07/04/19. Amalia just wanted this to be noted and sent to the care team here. AMA Carson APRN.WASHHOUSE HAND, WASHHOUSE HAND 08/22/2019 3:40 PM Signed Noted. Thank you. Progress Notes (): Dunia Constantino BancroftDO 08/20/2019 8:42 PM Signed DEPARTMENT OF HOSPITAL MEDICINE HISTORY AND PHYSICAL EXAM SERVICE DATE: 08/20/2019 SERVICE TIME: 3:00 PM Primary Care Physician: Mal Main MD NIGHT AND WEEKEND COVERAGE: After 7pm, please call cross cover pager #[phone] Subjective CHIEF COMPLAINT: Weakness, BADRALES, melena HPI: This is a 79 year old male who presents with above complaints that started today. Went to get up for bathroom and was having shortness of breath and was feeling weak. Uses a walker. In the bathroom had a large "explosive" bowel movement that was black and foul [...] mm St. Cristhian Trifecta pericardial prosthesis at [facility] by Dr. Rivers - S/P CABG x 2 07/04/2019 at [facility] by Dr. Rivers - Vitamin D deficiency PAST SURGICAL HISTORY Procedure Laterality Date - ATRIAL APPENDAGE LIGATION 07/04/2019 35 mm AtriCure clip at [facility] by Dr. Rivers - CABG (2) VEIN GRAFTS AND ARTERIAL GRAFT(S 07/04/2019 at [facility] by Dr. Rivers - REPAIR UMBILICAL HERNIA 12/04/2018 after bowel perforation done at [facility] Dr. Young - REPLAC AORT VALV PROSTH VALV 07/04/[address] Cristhian Trifecta pericardial prosthesis at [facility] by Dr. Rivers FAMILY HISTORY Problem [...] (Src) 98.4 (Oral) Resp 20 Ht 6' 0" (1.83m) Wt 199 lb (90.3kg) SpO2 99% [...] Prophylaxis: Contraindicated active bleeding Disposition: Home with [facility] Plan of care discussed with: Patient, [...] AND WEEKEND COVERAGE: After 7pm please page [phone] CHIEF COMPLAINT: Upper back pain SUBJECTIVE: Patient [...] (Src) 98.4 (Oral) Resp 20 Ht 6' 0" (1.83m) Wt 198 lb 10.2 oz (90.1kg) [...] 21, 2019 TIME: 9:00 AM PAGER/CONTACT #: [phone] Previous Version Niesha Musa MD 08/21/2019 12:31 [...] mm St. Cristhian Trifecta pericardial prosthesis at [facility] by Dr. Rivers - S/P CABG x 2 07/04/2019 at [facility] by Dr. Rivers - Vitamin D deficiency PAST SURGICAL HISTORY Procedure Laterality Date - ATRIAL APPENDAGE LIGATION 07/04/2019 35 mm AtriCure clip at [facility] by Dr. Rivers - CABG (2) VEIN GRAFTS AND ARTERIAL GRAFT(S 07/04/2019 at [facility] by Dr. Rivers - REPAIR UMBILICAL HERNIA 12/04/2018 after bowel perforation done at [facility] Dr. Young - REPLAC AORT VALV PROSTH VALV 07/04/[address] Cristhian Trifecta pericardial prosthesis at [facility] by Dr. Rivers FAMILY HISTORY Problem [...] August 21, 2019 TIME: 12:18 PM PAGER: [phone] Rica Garcia, AGUSTO, RN 08/22/2019 12:42 AM Signed Nursing Progress Note Patient Name: Elias Shah Patient Location: [id number] Daily Note: 2352: Sound text paged, BP 170/62 and HR 50, pt not symptomatic. 2354: Dr. Rubi called back ordered 50mg PO Hydralazine. Will continue to monitor. This note was completed by: AGUSTO Simms MD 08/22/2019 2:45 PM Addendum DEPARTMENT OF HOSPITAL MEDICINE PROGRESS NOTE SERVICE DATE: 08/22/2019 SERVICE TIME: 8:34 AM Hospital Medicine/Primary Attending: Roger Castillo MD NIGHT AND WEEKEND COVERAGE: After 7pm please page [phone] CHIEF COMPLAINT: UGIB SUBJECTIVE: Patient has had no further GI bleeding. He is going for an endoscopy later this morning. He is not having any dizziness, chest pain, shortness of breath, melena, hematochezia, or hematemesis. OBJECTIVE: PHYSICAL EXAM: BP 159/66 Pulse 64 Temp (Src) 98.4 (Oral) Resp 16 Ht 6' 0" (1.83m) Wt 198 lb 13.7 oz (90.2kg) [...] AM PAGER/CONTACT #: [phone] Previous Version Serene Amaya 08/22/2019 11:08 AM Signed CARE MANAGEMENT PROGRESS NOTE SERVICE DATE: 08/22/2019 SERVICE TIME: 1015 LOS: 2 days IM letter given to patient on . SIGNATURE: Serene Amaya PATIENT NAME: Elias Shah DATE: August 22, 2019 TIME: 11:07 AM PAGER/CONTACT #: [phone] WILLIAM Belcher, RD 08/22/2019 12:20 PM Signed [...] 2 Acute Encephalopathy Coronary Artery Disease of [place] Artery of [place] Heart With Stable Angina Pectoris (Hcc) S/P [...] mm St. Cristhian Trifecta pericardial prosthesis at [facility] by Dr. Rivers - S/P CABG x 2 07/04/2019 at [facility] by Dr. Rivers - Vitamin D deficiency PAST SURGICAL HISTORY Procedure Laterality Date - ATRIAL APPENDAGE LIGATION 07/04/2019 35 mm AtriCure clip at [facility] by Dr. Rivers - CABG (2) VEIN GRAFTS AND ARTERIAL GRAFT(S 07/04/2019 at [facility] by Dr. Rivers - REPAIR UMBILICAL HERNIA 12/04/2018 after bowel perforation done at [facility] Dr. Young - REPLAC AORT VALV PROSTH VALV 07/04/[address] Cristhian Trifecta pericardial prosthesis at [facility] by Dr. Rivers Social History Socioeconomic [...] file Gets together: Not on file Attends yazidism service: Not on file Active member of [...] having EGD this am. Pt reports has "good appetite." GI symptoms: none Nutrition Abdominal Exam:, abdomen [...] oz) 04/13/19 : 88.9 kg (196 lb) [place] Body Weight: 80.9kg Resting Metabolic Rate: 1650 Estimated kilocalorie needs: kilocalories determined by 25-30 kcal/kg Estimated protein needs: 97-105 grams determined by 1.2-1.3 g/kg [place] weight Estimated fluid needs: milliliters based on 1 mL per kcal [...] q 12 H Date 08/21/19 07 - 08/22/1965808/22/19 07 - 08/23/19 0659 Shift 6495-6161 8586-2318 6207-3399 24 Hour Total 0437-0579 5296-3715 5175-9299 24 Hour Total INTAKE PO 223 468 6630 PO 727 609 6775 Shift Total 948 540 0042 OUTPUT Urine 200 1545 1745 Void (ml) [...] August 22, 2019 TIME: 12:02 PM PAGER: [phone] Marlon Womack MD 08/22/2019 12:43 PM Signed [...] 2 Acute Encephalopathy Coronary Artery Disease of [place] Artery of [place] Heart With Stable Angina Pectoris (Hcc) S/P [...] mm [facility]. Cristhian Trifecta pericardial prosthesis at [facility] by Dr. 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 Rivers - Vitamin D deficiency PAST SURGICAL HISTORY Procedure Laterality Date - ATRIAL APPENDAGE LIGATION 07/04/2019 35 mm AtriCure clip at [facility] by Dr. Rivers - CABG (2) VEIN GRAFTS AND ARTERIAL GRAFT(S 07/04/2019 at [facility] by Dr. Rivers - REPAIR UMBILICAL HERNIA 12/04/2018 after bowel perforation done at [facility] Dr. Young - REPLAC AORT VALV PROSTH VALV 07/04/[address] Cristhian Trifecta pericardial prosthesis at [facility] by Dr. Rivers FAMILY HISTORY Problem [...] tab(s) (COZAAR) 50 mg ORAL BID Dunia Bancroft 50 mg at 08/22/19 0840 - [MAR Hold due to Transfer] metoprolol tartrate (short acting) 25 mg tab(s) (LOPRESSOR) 25 mg ORAL BID Dunia Bancroft 25 mg at 08/21/192003 - [MAR Hold due to Transfer] tamsulosin ER 0.4 mg cap(s) (FLOMAX) 0.4 mg ORAL DAILY Dunia Bancroft 0.4 mg at 08/21/19 0953 - [MAR Hold due to Transfer] NaCl 0.9% 3-5 mL 3-5 mL INTRAVENOUS q 12 H Dunia Crawford 3 mL at 08/22/19 0840 - [MAR Hold due to Transfer] NaCl 0.9% 2-10 mL 2-10 mL INTRAVENOUS q 12 H Dunia Crawford 10 mL at 08/22/19 0900 - [MAR [...] August 22, 2019 TIME: 12:40 PM CSN: [id number] Sherrie Bradshaw RN, RN 08/22/2019 1:19 PM [...] 1:40 PM Signed OPERATIVE/PROCEDURE REPORT LOG ID: [id number] Surgery/Procedure Date: 08/22/2019 Incision/Procedure Start Time: 1:29 PM Incision Close/Procedure End Time: 1:33 PM Surgeon(s)/Procedural ist(s) and High Speed Printer Operator(s): Surgeon(s) and Role: * Zora Peter [...] SIGNATURE: Zora Peter MD PATIENT NAME: Elias Yen Leonid DATE: August 22, 2019 TIME: 1:36 PM PAGER/CONTACT #: Barbara Roque RN, RN 08/22/2019 2:29 PM Signed CARE MANAGEMENT PROGRESS NOTE SERVICE DATE: 08/22/2019 SERVICE TIME: 2:29 PM LOS: 2 days Attempted to meet with pt for initial assessment, he is in Endo for procedure. Will F/U SIGNATURE: Barbara Roque RN PATIENT NAME: Elias Yen Leonid DATE: August 22, 2019 TIME: 2:29 PM PAGER/CONTACT #: [phone] Adriane Avelar RN, RN 08/22/2019 2:48 PM [...] 2019 TIME: 4:49 PM PAGER/CONTACT #: Ina Ryan, RN, RN 08/23/2019 10:19 AM Signed PRE OP LEARNING ASSESSMENT PROCEDURE/SURGERY: GI PROCEDURES: Colonoscopy READINESS TO LEARN COGNITIVE ABILITY: Alert and oriented MOTIVATION TO LEARN: Interested FAMILY SUPPORT: None - Unavailable/disintere sted PATIENT LEARNS BEST BY: Individual Instruction FACTORS AFFECTING LEARNING: None PHYSICAL LIMITATIONS AFFECTING LEARNING: None Electronically Signed By: Ina Ryan RN In Department: [facility] CNOVon 08-12-2019 CNOV Office Visit (AGVASACC) ELIAS SHAH ([id number]) 1940 M Date Time Provider Department 08/12/19 2:00 PM HIGINIO BACON) AGVASACC During your visit today, we recorded the following information about you: Pulse Respiration Blood pressure Weight 56/minute 20/minute 140/80 90.3 kg Height 1.829 m Higinio Bacon APRN.CNP, CNP 08/12/2019 5:17 PM Signed HPI: Elias Shah [...] anemia, hematuria, acute encephalopathy. He was discharged [facility] on 07/13/2019. while recovering in acute [...] Dr Ann 08/18 Cardiac Rehab: TBD at [facility] Subjective: Current Outpatient Medications: metoprolol [...] RELIEF) 50 mcg/actuation nasal spray Use 1 Cass in each nostril once daily. Cholecalciferol, Vitamin [...] mm St. Cristhian Trifecta pericardial prosthesis at [facility] by Dr. Rivers - S/P CABG x 2 07/04/2019 at [facility] by Dr. Rivers - Vitamin D deficiency PAST SURGICAL HISTORY Procedure Laterality Date - ATRIAL APPENDAGE LIGATION 07/04/2019 35 mm AtriCure clip at [facility] by Dr. Rivers - CABG (2) VEIN GRAFTS AND ARTERIAL GRAFT(S 07/04/2019 at [facility] by Dr. Rivers - REPAIR UMBILICAL HERNIA 12/04/2018 after bowel perforation done at [facility] Dr. Young - REPLAC AORT VALV PROSTH VALV 07/04/[address] Cristhian Trifecta pericardial prosthesis at [facility] by Dr. Rivers FAMILY HISTORY Problem [...] 140/80 Pulse 56 Resp 20 Ht 6' 0" (1.83m) Wt 199 lb (90.3kg) SpO2 97% [...] mg BID -Stop amiodarone -Will defer to city surveyor Dr. Ann for further management 4. MAURO [...] on. he should follow up with his city surveyor and PCP as scheduled, and should follow-up [...] help with this. - Please see your city surveyor regularly. They will take over medication management. [...] the morning Miralax for constipation Others all dlqj-iqt-kckdkkf Take if you think you need them Miralax for constipation Ferrous polysaccharide - anemia -STOP Robitussin DM syrup -cough Vitamin D - Pro biotic flonase Thank you for coming to see me today!! Higinio Bacon, EVALUATION ADVISOR.WASHHOUSE HAND Referring Provider: SELF [[id number]] Allergies As of [...] 60 tabletRfl: 5 XR CHEST 2V FRONTAL/LAT [[id number]] Order #: [id number] FUTURE Blood Pressure Monitor kitMonitor heart rate [...] [G93.40] INVALID FOR* Coronary artery disease of [place] artery of [place]*INVALID FOR* Other instructions from [...] help with this. - Please see your city surveyor regularly. They will take over medication management. [...] the morning Miralax for constipation Others all yoiy-hml-ctzryol Take if you think you need them Miralax for constipation Ferrous polysaccharide - anemia -STOP Robitussin DM syrup -cough Vitamin D - Pro biotic flonase Thank you for coming to see me today!! Higinio Bacon, EVALUATION ADVISOR.WASHHOUSE HAND Prescriptions ordered this encounter Disp Refills Start [...] Med Route: EACH NOSTRIL Sig: Use 1 Cass in each nostril once daily. Disc: Course [...] by HIGINIO BACON CNP on 08/12/19 [facility] PROGRESSon 08-12-2019 PROGRESS HNO ID: [id number] Author: Higinio (Kee) KEE Bacon Service: ? [...] anemia, hematuria, acute encephalopathy. He was discharged [facility] on 07/13/2019. while recovering in acute [...] Dr Ann 08/18 Cardiac Rehab: TBD at [facility] Subjective: Current Outpatient Medications: metoprolol [...] RELIEF) 50 mcg/actuation nasal spray Use 1 Cass in each nostril once daily. Cholecalciferol, Vitamin [...] mm St. Cristhian Trifecta pericardial prosthesis at [facility] by Dr. Rivers - S/P CABG x 2 07/04/2019 at [facility] by Dr. Rivers - Vitamin D deficiency PAST SURGICAL HISTORY Procedure Laterality Date - ATRIAL APPENDAGE LIGATION 07/04/2019 35 mm AtriCure clip at [facility] by Dr. Rivers - CABG (2) VEIN GRAFTS AND ARTERIAL GRAFT(S 07/04/2019 at [facility] by Dr. Rivers - REPAIR UMBILICAL HERNIA 12/04/2018 after bowel perforation done at [facility] Dr. Young - REPLAC AORT VALV PROSTH VALV 07/04/[address] Cristhian Trifecta pericardial prosthesis at [facility] by Dr. Rivers FAMILY HISTORY Problem [...] 140/80 Pulse 56 Resp 20 Ht 6' 0" (1.83m) Wt 199 lb (90.3kg) SpO2 97% [...] mg BID -Stop amiodarone -Will defer to city surveyor Dr. Ann for further management 4. MAURO (acute kidney injury) (HCC) - ICD9: 584.9, ICD10: N17.9 -SCR 08/04/19 at [facility] 1.20 (1.13-1.18 preop) -Stable 5. Debility - [...] on. he should follow up with his city surveyor and PCP as scheduled, and should follow-up with us in 1 month with CXR before. Thanks. Electronically signed by Higinio Bacon APRN.CNP on August 12, 2019, 1:36 PM [facility] CNOVon 07-28-2019 CNOV Office Visit (AGVASACC) ELIAS SHAH ([id number]) 1940 M Date Time Provider Department 07/28/19 3:00 PM HIGINIO BACON (KEE) JAZMYNE During your visit today, we recorded [...] anemia, hematuria, acute encephalopathy. He was discharged [facility] on 07/13/2019. In the intervening week [...] RELIEF) 50 mcg/actuation nasal spray Use 1 Cass in each nostril once daily. Cholecalciferol, Vitamin [...] mm St. Cristhian Trifecta pericardial prosthesis at [facility] by Dr. Rivers - S/P CABG x 2 07/04/2019 at [facility] by Dr. Rivers - Vitamin D deficiency PAST SURGICAL HISTORY Procedure Laterality Date - ATRIAL APPENDAGE LIGATION 07/04/2019 35 mm AtriCure clip at [facility] by Dr. Rivers - CABG (2) VEIN GRAFTS AND ARTERIAL GRAFT(S 07/04/2019 at [facility] by Dr. Rivers - REPAIR UMBILICAL HERNIA 12/04/2018 after bowel perforation done at [facility] Dr. Young - REPLAC AORT VALV PROSTH VALV 07/04/[address] Cristhian Trifecta pericardial prosthesis at [facility] by Dr. Rivers FAMILY HISTORY Problem [...] 128/70 Pulse 82 Resp 18 Ht 6' 0" (1.83m) Wt 206 lb (93.4kg) SpO2 100[3 [...] (patient is receiving only 81 mg at [facility]), atorvastatin 40 mg daily, increase metoprolol to 50 mg 3 times a day - CARDIAC REHAB II OUTPT ([place], [place]) -4-6 weeks once recovered from surgery and f/u with Dr Ann - XR CHEST 2V FRONTAL/LAT -for next visit scheduled in 2 weeks 2. S/P CABG x 2 - ICD9: V45.81, ICD10: Z95.1 -As above - CARDIAC REHAB II OUTPT ([place], [place]) - XR CHEST 2V FRONTAL/LAT 3. [...] ICD9: 799.3, ICD10: R53.81 -[facility] -Patient to ambulate with walker independently to prepare for home-going scheduled 08/05/2019 7. Pneumonia due to organism - ICD9: 486, ICD10: J18.9 -On vancomycin and cefepime for presumed pneumonia -[facility] -Patient with normal O2 saturation at rest and post ambulatory. -Wean O2 prior to discharge. Higinio Bacon APRN.CNP In summary, Elias Shah is doing better overall after his combined CABG aVR surgery, with no major complaints. he should follow-up in this office in 2 weeks with Chest X-ray. Thanks. Electronically signed by Higinio Bacon APRN.CNP on July 28, 2019, 12:54 PM Higinio Bacon APRN.CNP, CNP 07/28/2019 4:42 PM Addendum -Please follow-up with your primary care physician and your city surveyor in 4-6 weeks -Please return to cardiac surgery in 3-4 weeks with a chest x-ray done before the appointment -Restriction remain: No lifting more than 10 lbs and No driving. -Cardiac rehab has been consulted. You will be able to begin cardiac rehab after your next visit with us. [facility]: . Recommendations: 1. Increase ASA to [...] to organism [J18.9] Order(s):CARDIAC REHAB II OUTPT ([place], [place]) [[id number]] Order #: [id number]: 1 XR CHEST 2V FRONTAL/LAT [[id number]] Order #: [id number] FUTURE metoprolol tartrate, short acting, (LOPRESSOR) 25 [...] FLONASE ALLERGY RELIEF 50 MCG* Use 1 Cass in each nostril o* METOPROLOL TARTRATE 25 [...] [G93.40] INVALID FOR* Coronary artery disease of [place] artery of [place]ty*INVALID FOR* Other instructions from your clinician: -Please follow-up with your primary care physician and your city surveyor in 4-6 weeks -Please return to cardiac surgery in 3-4 weeks with a chest x-ray done before the appointment -Restriction remain: No lifting more than 10 lbs and No driving. -Cardiac rehab has been consulted. You will be able to begin cardiac rehab after your next visit with us. [facility]: . Recommendations: 1. Increase ASA to [...] coming to see me today! Higinio Bacon APRN.WASHHOUSE HAND Prescriptions ordered this encounter Disp Refills Start [...] by HIGINIO BACON CNP on 07/29/19 [facility] PROGRESSon 07-28-2019 PROGRESS HNO ID: [id number] Author: Higinio Medina) KEE Bacon Service: ? [...] RELIEF) 50 mcg/actuation nasal spray Use 1 Cass in each nostril once daily. Cholecalciferol, Vitamin [...] mm St. Cristhian Trifecta pericardial prosthesis at [facility] by Dr. Rivers - S/P CABG x 2 07/04/2019 at [facility] by Dr. Rivers - Vitamin D deficiency PAST SURGICAL HISTORY Procedure Laterality Date - ATRIAL APPENDAGE LIGATION 07/04/2019 35 mm AtriCure clip at [facility] by Dr. Rivers - CABG (2) VEIN GRAFTS AND ARTERIAL GRAFT(S 07/04/2019 at [facility] by Dr. Rivers - REPAIR UMBILICAL HERNIA 12/04/2018 after bowel perforation done at [facility] Dr. Young - REPLAC AORT VALV PROSTH VALV 07/04/[address] Cristhian Trifecta pericardial prosthesis at [facility] by Dr. iRvers FAMILY HISTORY Problem Relation Age of Onset [...] 128/70 Pulse 82 Resp 18 Ht 6' 0" (1.83m) Wt 206 lb (93.4kg) SpO2 100[3 [...] (patient is receiving only 81 mg at [facility]), atorvastatin 40 mg daily, increase metoprolol to 50 mg 3 times a day - CARDIAC REHAB II OUTPT ([place], [place]) -4-6 weeks once recovered from surgery and f/u with Dr Ann - XR CHEST 2V FRONTAL/LAT -for next visit scheduled in 2 weeks 2. S/P CABG x 2 - ICD9: V45.81, ICD10: Z95.1 -As above - CARDIAC REHAB II OUTPT ([place], [place]) - XR CHEST 2V FRONTAL/LAT 3. [...] ICD9: 799.3, ICD10: R53.81 -Increase ambulation at [facility] -Patient to ambulate with walker independently to prepare for home-going scheduled 08/05/2019 7. Pneumonia due to organism - ICD9: 486, ICD10: J18.9 -On vancomycin and cefepime for presumed pneumonia -Request x-ray image from 07/27/2019 from [facility] -Patient with normal O2 saturation at rest and post ambulatory. -Wean O2 prior to discharge. Higinio Bacon APRN.WASHHOUSE HAND In summary, Elias Shah is doing better overall after his combined CABG aVR surgery, with no major complaints. he should follow-up in this office in 2 weeks with Chest X-ray. Thanks. Electronically signed by Higinio Bacon APRN.KEE on July 28, 2019, 12:54 PM [facility] CNPNon 07-21-2019 [place] Telephone ([employer]) LEONIDELIAS Yen ([id number]) 1940 M Date Time Provider Department 07/21/19 WAYNE RIVERS ADCentricityERICKAARTI During your visit today, we recorded the following information about you: Brook Sweeney LPN 07/21/2019 2:45 PM Signed Janee constantino nurse at [facility], transitional care unit calls with concern of [...] new orders please call her directly # [phone]. If desired an EKG can be done at that facility. AMA Carson APRN.KEE OTERO 07/21/2019 4:17 PM Signed Return phone call to Janee at [facility]. She reports that Mr. Carreno heart rate [...] and agreed to this plan. Higinio Bacon APRN.WASHHOUSE HAND Allergies As of Date: 07/21/2019 (No Known [...] FLONASE ALLERGY RELIEF 50 MCG* Use 1 Cass in each nostril o* CHOLECALCIFEROL (VITAMIN D3) [...] [G93.40] INVALID FOR* Coronary artery disease of [place] artery of [place]ty*INVALID FOR* Prescriptions ordered this [...] by HIGINIO BACON CNP on 07/21/19 [facility] CASE MANAGEMon 07-13-2019 CASE MANAGEM HNO ID: [id number] Author: Greg (Rn) AGUSTO Naqvi Service: Care Management Author Type: Registered Nurse Type: Care Mgt Progress Note Filed: 07/13/2019 1:55 PM Note Text: CARE MANAGEMENT PROGRESS NOTE SERVICE DATE: 07/13/2019 SERVICE TIME: 1352 LOS: 9 days Received call from [facility], they can accept pt in skilled unit. They were updated on roller picker time. Orders will be faxed as soon as PA finalizes. left for pts sister Amalia at pt request. SIGNATURE: Greg Naqvi RN PATIENT NAME: Elias Shah DATE: July 13, 2019 TIME: 1:52 PM PAGER/CONTACT #: [phone] [facility] CASE MANAGEM HNO ID: [id number] Author: Greg (Rn) AGUSTO Naqvi Service: Care Management Author Type: Registered Nurse Type: Care Mgt Progress Note Filed: 07/13/2019 1:43 PM Note Text: CARE MANAGEMENT PROGRESS NOTE SERVICE DATE: 07/13/2019 SERVICE TIME: 1324 LOS: 9 days [facility] pt. No answer was given in [employer] yesterday and [employer] is down today. [facility], she still feels pt is more appropriate for skilled and not acute rehab, states that the pt is 79 and he had a CABG. I did explain that the pt has been ambulating in the unit with minimal assist multiple times per day and PT/OT rec acute rehab. Facility requesting latest PT/OT to be faxed. Evals from 07/11 were faxed to [phone]. Await response. Pt is agreeable to go skilled if pt will not take for acute rehab. Anticipate dc later today. Ambulette set up fpr 4 pm. Still waiting on final acceptance from [facility]. SIGNATURE: Greg Naqvi RN PATIENT NAME: Elias Yen Leonid DATE: July 13, 2019 TIME: 1:24 PM PAGER/CONTACT #: [phone] [facility] LEONIDELIAS Farshad ([id number]) 1940 M Date Time Provider Department 07/13/19 MARLON MILLAN) [facility] During your visit today, we recorded the following information about you: Marlon Millan PA-C 07/13/2019 4:09 PM Signed Please schedule follow up appointment in 1 week s/p AVR/ CABG/ left atrial appendage clip. Thanks! Allergies As of Date: 07/13/2019 (No Known Allergies) Date Reviewed: 07/12/2019 Reviewed by: Lashon Shaikh) AGUSTO Hensley - Fully Assessed Reason for Visit: Sanitation Supervisor - Hospital Follow Up [3601] Prescriptions as [...] FLONASE ALLERGY RELIEF 50 MCG* Use 1 Cass in each nostril o* CHOLECALCIFEROL (VITAMIN D3) [...] [G93.40] INVALID FOR* Coronary artery disease of [place] artery of betty*INVALID FOR* Encounter Status:Closed by MARLON MILLAN PA-C on 07/13/19 [facility] CONSULT PROGon 07-13-2019 CONSULT PROG HNO ID: [id number] Author: Salomon (Facility Engineer.Telephone Solicitor) ELIAS Roque Service: Electrophysiology Author Type: Nurse [...] on 07/04/2019. Patient is now s/p AVR. TELEMETRY/gambling monitor: Atrial fib in 80s, IVCD, occasional [...] Acute encephalopathy (07/09/2019) Coronary artery disease of [place] artery of [place] heart with stable angina pectoris (HCC) (07/09/2019) [...] heart rate AND rhythm. SIGNATURE: Salomon Roque APRN.ROUGE PRESSER PATIENT NAME: Elias Shah DATE: July 13, 2019 TIME: 10:47 AM PAGER/CONTACT #: [phone] [facility] PLAN OF CAREon 07-13-2019 PLAN OF CARE HNO ID: [id number] Author: Fabi De La Cruz ([employer]) Service: ? Author Type: ? Type: Plan of Care Filed: 07/13/2019 3:34 PM Note Text: COMPONENT ASSEMBLER BEDSIDE DELIVERY SURVEY 1. Patient to use [facility] Bedside Delivery - N/A Insurance Information as follows: 2. Insurance card on file - N/A 3. Credit card for payment - N/A Patient DC to SNF/acute rehab/inpatient facility, therefore not eligible for pharmacy bedside delivery service. Fabi De La Cruz (Vegetable Washing Machine Operator) [phone] [facility] PROGRESSon 07-13-2019 PROGRESS HNO ID: [id number] Author: Ronn Kincaid Service: Pulmonary Disease Author [...] (Src) 97.3 (Temporal) Resp 20 Ht 6' 0" (1.83m) Wt 211 lb 12.8 oz (96.1kg) [...] OK with CVICU. SIGNATURE: Ronn Kincaid MD [facility] DATE of SERVICE: July 13, 2019 TIME of SERVICE: 9:20 AM [facility] PROGRESS HNO ID: [id number] Author: Jim Castro DO Service: Cardiac Surgery [...] 2019 TIME: 6:16 AM PAGER/CONTACT #: [phone] [facility] CASE MANAGEMon 07-12-2019 CASE MANAGEM HNO ID: [id number] Author: Greg (Rn) AGUSTO Naqvi Service: Care Management Author Type: Registered Nurse Type: Care Mgt Progress Note Filed: 07/12/2019 11:56 AM Note Text: CARE MANAGEMENT PROGRESS NOTE SERVICE DATE: 07/12/2019 SERVICE TIME: 1152 LOS: 8 days Received message from staff at [facility] stating they feel pt is more appropriate [...] Pt prefers acute rehab. Message sent to [facility], await response. SIGNATURE: Greg Naqvi RN PATIENT NAME: Elias Shah DATE: July 12, 2019 TIME: 11:52 AM PAGER/CONTACT #: [phone] [facility] CONSULTon 07-12-2019 CONSULT HNO ID: [id number] Author: Alvin Jose Service: Electrophysiology Author Type: [...] HERNIA 12/04/2018 after bowel perforation done at [facility] Dr. Young FAMILY HISTORY Problem Relation Age [...] Unknown time Yes Yes Sig: Use 1 Cass in each nostril once daily. loperamide (IMODIUM) [...] Assessment AND Plan: Coronary artery disease of [place] artery of [place] heart with stable angina pectoris (HCC) POA: Yes Assessment AND Plan: Resolved Problems: * No resolved hospital problems. * Orders reviewed and I agree with the cardiac orders. Additional orders include . SIGNATURE: Alvin Jose DO PATIENT NAME: Elias Shah DATE: July 12, 2019 TIME: 11:14 AM PAGER/CONTACT #: [phone] [facility] ECG COMPLETEon 07-12-2019 ECG COMPLETE NAME : ELIAS SHAH PID : [id number] : 1940 Gender : Male Race : ORD : [id number] Procedure Date : Jul 12 2019 09:22:34 [...] LONGER PRESENT Confirmed by MD ESCALANTE VINAYAK ([id number]) on 07/12/2019 8:58:11 PM Ventricular Rate : 119 BPM Atrial Rate : 119 BPM QRS Duration : 150 ms Q-T Interval : 396 ms QTC Calculation(Bazett) : 557 ms R Newell : -58 degrees T Newell : 114 degrees Test Reason : Arrhythmia Location : 6 : [place] [address] Overread By : MD ESCALANTE VINAYAK Edited By : MD ESCALANTE VINAYAK Referred By : WAYNE RIVERS Acquired by : MARLON MAYER [facility] NURSING PROGon 07-12-2019 NURSING PROG HNO ID: [id number] Author: Suni GusmanRn) AGUSTO Maguire Service: ? [...] resulted 165/87. Will continue to monitor [facility] NURSING PROG HNO ID: [id number] Author: Suni (Rn) AGUSTO Maguire Service: ? Author Type: Registered Nurse Type: Nursing Progress Note Filed: 07/12/2019 11:15 AM Note Text: Dr Cruz At bedside for EP consult [facility] NURSING PROG HNO ID: [id number] Author: Suni (Rn) AGUSTO Maguire Service: ? [...] possible deterioration. Will continue to monitor [facility] PROGRESSon 07-12-2019 PROGRESS HNO ID: [id number] Author: Marlon Millan (Pa) Service: Cardiovascular Surgery Author Type: Physician High Speed Printer Operator Type: Progress Notes Filed: 07/12/2019 5:32 [...] 12, 2019 TIME: 2:17 PM PAGER/CONTACT #: [phone] [facility] PROGRESS HNO ID: [id number] Author: Ronn Kincaid Service: Pulmonary Disease Author [...] (Src) 97.2 (Temporal) Resp 20 Ht 6' 0" (1.83m) Wt 213 lb 13.5 oz (97.0kg) [...] availability for transfer. SIGNATURE: Ronn Kincaid MD [facility] DATE of SERVICE: July 12, 2019 TIME of SERVICE: 9:36 AM [facility] PROGRESS HNO ID: [id number] Author: Jim Castro DO Service: Cardiac Surgery [...] 2019 TIME: 6:13 AM PAGER/CONTACT #: [phone] [facility] ALLIED HEALTHon 07-11-2019 ALLIED HEALTH HNO ID: [id number] Author: Mal GusmanEmergency Medicine) ASTRID Mendoza Service: Cardiac Rehab Author Type: Registered Resp Therapist Type: Allied Health Filed: 07/11/2019 3:16 PM Note Text: CARDIAC REHABILITATION PATIENT EDUCATION PROGRESS NOTE Name: Elias Shah Date of Service: 07/11/19 Time of Service: 1513 ASSESSMENT: Risk Factors Identified: Family History Gender Hyperlipidemia Hypertension Obesity Sedentary Lifestyle RECOMMENDATIONS: Patient interested in Phase II Outpatient Cardiac Rehab: Yes. Facility Preferred: [facility] DIAGNOSIS: Open Heart Surgery: CABG Open Heart [...] Rehabilitation Brochure Signature: Mal Mendoza RRT Pager: [phone] Date: July 11, 2019 Time: 3:14 PM [facility] CASE MANAGEMon 07-11-2019 CASE MANAGEM HNO ID: [id number] Author: Imelda GusmanRn) AGUSTO Rizvi Service: ? Author Type: Registered [...] 11, 2019 TIME: 2:43 PM PAGER/CONTACT #: [phone] [facility] NURSING PROGon 07-11-2019 NURSING PROG HNO ID: [id number] Author: Suni GusmanRn) AGUSTO Maguire Service: ? Author Type: Registered Nurse Type: Nursing Progress Note Filed: 07/11/2019 2:30 PM Note Text: PT/OT assisted with using bedside commode and ambulating a full lap. Pt assisted back to bed upon request, awaiting AV wires to be removed by Daniele MCCARY. Pt did experience a run of VTach once brought back to room, AxO during episode and complained of SOB on room air, maintaining above 96%. Will continue to monitor [facility] NUTRITIONon 07-11-2019 NUTRITION HNO ID: [id number] Author: Mimi Smith Service: Nutrition Therapy Author [...] July 11, 2019 TIME: 12:14 PM PAGER: [phone] [facility] NUTRITION HNO ID: [id number] Author: Yasmine Tucker) JENNIFER Sanchez Service: Nutrition Therapy Author Type: Registered Dietitian [...] 2 Acute Encephalopathy Coronary Artery Disease of [place] Artery of [place] Heart With Stable Angina Pectoris (Hcc) PAST [...] HERNIA 12/04/2018 after bowel perforation done at [facility] Dr. Young Nutritional Intake: <75% estimated energy [...] July 11, 2019 TIME: 8:46 AM PAGER: [phone] [facility] PROGRESSon 07-11-2019 PROGRESS HNO ID: [id number] Author: Marlon Millan (Pa) Service: Cardiovascular Surgery Author Type: Physician High Speed Printer Operator Type: Progress Notes Filed: 07/11/2019 2:02 [...] LE Lines, Drains, and Airways Line Peripheral 07/10/19 [...] 11, 2019 TIME: 1:21 PM PAGER/CONTACT #: [phone] [phone] [facility] PROGRESS HNO ID: [id number] Author: Jim Castro DO Service: Cardiac Surgery Author Type: Resident Type: Progress Notes Filed: 07/11/2019 7:03 AM Note Text: Attestation signed by Wayne Rivers at 07/11/2019 11:13 AM Attending Note I evaluated the patient and personally participated in the smimons components. I agree with the resident's findings and plan as documented and have discussed the case and management of the patient's care with the resident. Doing well. Will increase BB. Sue. DC pacing wires. Transfer to [facility]. to consider farley removal. Placement pending. Signature: [...] bioprosthetic valve function - likely transfer to [facility] today - will need temp pacing wires [...] 2019 TIME: 6:17 AM PAGER/CONTACT #: [phone] [facility] THERAPY NTon 07-11-2019 THERAPY NT HNO ID: [id number] Author: Chloe (Otr/Carleen Asher Service: Occupational Therapy Author Type: Occupational Therapist Type: Therapy (PT/OT/Speech/Resp) Filed: 07/11/2019 3:37 PM Note Text: Occupational Therapy Treatment SERVICE DATE: 07/11/2019 SERVICE TIME: 1355 to 1410 ROOM: [place] [address] Recommended Discharge Disposition: Acute Rehab Recommended Discharge [...] Cognitive Functions and Awareness Interventions Provided: Self Longterm Management (79457) Self Longterm Management (60724) Treatment Minutes: 15 1 unit Skilled Intervention(s): [...] commands noted. Well, you're in a hospital. [facility], if you didn't remember" when asked for orientation to place. Reported pain in right shoulder at 06/01. "My left one hurt too right after surgery, but it's better. I guess it's how they positioned me." Home Environment Patient Lives With: Family(sister) Assistance Available: multimedia engineer Entry To Home: Stairs Prior Functional Level: [...] complete details for this therapy evaluation/treatment. SIGNATURE: ERCI Bales/L PATIENT NAME: Elias Shah DATE: July 11, 2019 TIME: 3:21 PM [facility] THERAPY NT HNO ID: [id number] Author: Maggie Rizvi Service: Physical Therapy Author Type: Physical Therapist Type: Therapy (PT/OT/Speech/Resp) Filed: 07/11/2019 3:21 PM Note Text: Physical Therapy Treatment SERVICE DATE: 07/11/2019 SERVICE TIME: 1409 to 1420 ROOM: [place] [address] Recommended Discharge Disposition: Acute Rehab Recommended Discharge [...] and has been walking the the staff electrical engineer several times last last few days. This [...] Patient TREATMENT INTERVENTIONS: Interventions Provided: Therapeutic Activity (09514);Gait Training (99015) Therapeutic Activity (60758) Treatment Minutes: 1 0 units Skilled Intervention(s): Education with hugging the pillow to his chest and laying on his side to log roll into the bed. Required assist to lif this legs in to the bed. The patient was instructed to keep holding the pillow and roll to his back. Gait Training (87859) Treatment Minutes: 10 1 unit Skilled Intervention(s): [...] Patient Lives With: Family(sister) Assistance Available: multimedia engineer Entry To Home: Stairs Prior Functional Level: [...] details for this therapy evaluation/treatment. SIGNATURE: Maggie Dmitri, PT PATIENT NAME: Elias Shah DATE: July 11, 2019 TIME: 3:15 PM [facility] THERAPY NT HNO ID: [id number] Author: Shashi (Ccc-Medical Assistant Instructor) Daquan CCC/HOSPICE CLINICAL SUPERVISOR Service: Speech/Swallow Author Type: Speech Language Pathologist Type: Therapy (PT/OT/Speech/Resp) Filed: 07/11/2019 12:22 PM Note Text: Speech Therapy MBSS Evaluation SERVICE DATE: 07/11/2019 SERVICE TIME: 1045 to 1100 ROOM: [id number] Nursing Recommendations: See swallow guide posted in [...] Tested: Thin Barium Liquids;Mildly Thick Barium Liquids ([place]asta Thick);Puree With Barium Paste;Solid With Barium Paste [...] phase Interventions Provided: Modified Barium Swallow Study (23578) $ Modified Barium Swallow Study (52051) Billed Units: 1 unit Total Treatment Time [...] for this therapy evaluation/treatment. SIGNATURE: Shashi Butt CCC-HOSPICE CLINICAL SUPERVISOR PATIENT NAME: Elias Shah DATE: July 11, 2019 TIME: 12:20 PM [facility] PROGRESSon 07-10-2019 PROGRESS HNO ID: [id number] Author: Wayne Rivers Service: Cardiac Surgery Author [...] ?F) Resp 20 Ht 180.3 cm (5' 11") Wt 86.4 kg (190 lb 7.6 oz) [...] 2019 TIME: 9:55 AM PAGER/CONTACT #: [phone] [facility] PROGRESS HNO ID: [id number] Author: Christopher Cook Service: Critical Care Author [...] ? SIGNATURE: Christopher Cook MD [facility] PAGER:[phone] [facility] PROGRESS HNO ID: [id number] Author: Downtime Note Service: ? Author Type: ? Type: Progress Notes Filed: 07/10/2019 3:03 AM Note Text: Epic Scheduled Downtime: 07/10/2019 1:00:00 AM to 07/10/2019 2:53:18 AM [facility] ECG COMPLETEon 07-09-2019 ECG COMPLETE NAME : ELIAS SHAH PID : [id number] : 1940 Gender : Male Race : ORD : [id number] Procedure Date : Jul 09 2019 06:15:23 [...] ANTERIOR LEADS Confirmed by MD CHUNG, ABDELRAHMAN ([id number]) on 07/09/2019 12:41:59 PM Ventricular Rate : 99 BPM Atrial Rate : 100 BPM QRS Duration : 110 ms Q-T Interval : 396 ms QTC Calculation(Bazett) : 508 ms R Newell : -45 degrees T Newell : 146 degrees Test Reason : Check QT Location : 6 : CVICU 3229 Overread By : MD CHUNG,ABDELRAHMAN Edited By : MD WILKES ANUBHAV Referred By : WAYNE RIVERS Acquired by : ANGELY LYNNE [facility] PROGRESSon 07-09-2019 PROGRESS HNO ID: [id number] Author: Wayne Rivers Service: Cardiac Surgery Author [...] ?F) Resp 20 Ht 180.3 cm (5' 11") Wt 86.4 kg (190 lb 7.6 oz) [...] 2019 TIME: 12:41 PM PAGER/CONTACT #: [phone] [facility] PROGRESS HNO ID: [id number] Author: Christopher Cook Service: Critical Care Author [...] minutes. SIGNATURE: Christopher Cook MD [facility] PAGER:[phone] [facility] THERAPY NTon 07-09-2019 THERAPY NT HNO ID: [id number] Author: Daria (Ccc-Medical Assistant Instructor) NEREYDA Mccauley Service: Speech/Swallow Author Type: Speech Language Pathologist Type: Therapy (PT/OT/Speech/Resp) Filed: 07/09/2019 8:17 AM Note Text: SPEECH THERAPY MISSED VISIT SERVICE DATE: 07/09/2019 SERVICE TIME: 816 to 816 ROOM: [id number]-6143- Attempted MBSS Evaluation. Patient not seen due to Other: See Comment. Aware of Modified Barium Swallow Study order. Will complete as scheduled. SIGNATURE: Daria Mccauley CCC-HOSPICE CLINICAL SUPERVISOR PATIENT NAME: Elias Shah DATE: July 09, 2019 TIME: 8:17 AM [facility] ALLIED HEALTHon 07-08-2019 ALLIED HEALTH HNO ID: [id number] Author: Marybeth (Rn) AGUSTO Park Service: ? [...] this time Signature: Marybeth Park RN Pager: [phone] Date: July 08, 2019 Time: 10:27 AM [facility] CASE MANAGEMon 07-08-2019 CASE MANAGEM HNO ID: [id number] Author: Imelda GusmanRn) AGUSTO Rizvi Service: ? Author Type: Registered Nurse Type: Care Mgt Progress Note Filed: 07/08/2019 2:47 PM Note Text: CARE MANAGEMENT PROGRESS NOTE SERVICE DATE: 07/08/2019 SERVICE TIME: 2:45 PM LOS: 4 days FREEDOM OF CHOICE GIVEN: Yes acute rehab The patient and/or family has been given the Provider List: Yes Provider List: Rehab Facility Preference: [facility] Rehab Needs Prior to Discharge: Accepting Facility;Discharge Transportation Met with pt and sister to discuss disch plan.. Pt and sister are in agreement for [facility] rehab. Referral created. SIGNATURE: Imelda Rizvi RN PATIENT NAME: Elias Shah DATE: July 08, 2019 TIME: 2:45 PM PAGER/CONTACT #: [phone] [facility] CASE MANAGEM HNO ID: [id number] Author: Serene Amaya Service: Care Management Author Type: ? Type: Care Mgt Progress Note Filed: 07/08/2019 9:56 AM Note Text: CARE MANAGEMENT PROGRESS NOTE SERVICE DATE: 07/08/2019 SERVICE TIME: 844 LOS: 4 days IM letter given to patient on . SIGNATURE: Serene Amaya PATIENT NAME: Elias Shah DATE: July 08, 2019 TIME: 9:56 AM PAGER/CONTACT #: [phone] [facility] CONSULT PROGon 07-08-2019 CONSULT PROG HNO ID: [id number] Author: Tahir Riley MD Service: Neurology ICU [...] communicated by shared medical record. This is . Elias Shah a 79 M with hx of HTN, HLD, CAD s/p CABG x 2, aortic stenosis s/p TAVR, paroxysmal Afib, and coagulopathy w/ thrombocytopenia who presented to [facility] for [facility]G and AVR. Patient is [...] 08, 2019 TIME: 7:44 PM PAGER/CONTACT #: [phone] [facility] NUTRITIONon 07-08-2019 NUTRITION HNO ID: [id number] Author: Yasmine Sanchez RD Service: Nutrition Therapy [...] HERNIA 12/04/2018 after bowel perforation done at [facility] Dr. 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 PROGRESSon 07-08-2019 PROGRESS HNO ID: [id number] Author: Nohemi Glover Service: Cardiovascular Disease Author [...] 08, 2019 TIME: 12:57 PM PAGER/CONTACT #: [phone] ETX [phone] [facility] PROGRESS HNO ID: [id number] Author: Marlon Dubon Jr. Service: Critical Care [...] HERNIA 12/04/2018 after bowel perforation done at [facility] Dr. Young Social History Socioeconomic History Marital [...] file Gets together: Not on file Attends yazidism service: Not on file Active member of [...] (Src) 97.3 (Temporal) Resp 15 Ht 6' 0" (1.83m) Wt 222 lb 0.1 oz (100.7kg) [...] (07/05/19809) Set Ventilator Respiratory Rate (BPM): 0 (07/05/19 0427) Total Respiratory Rate (BPM): 15 (07/05/19809) Tidal Volume Set (mL): 0 (07/05/19 0427) Exhaled Tidal Volume (mL): 521 (07/05/19809) Minute Volume (L): 7.03 (07/05/19809) Peak Inspiratory Pressure (cm H2O): 11 (07/05/19 [...] July 08, 2019 TIME: 9:56 AM [facility] PROGRESS HNO ID: [id number] Author: Jim (Luis Enrique Castro DO Service: [...] controlled. Persisting chest pain. DIET NPO per HOSPICE CLINICAL SUPERVISOR. Objective Admission Weight: 90.7 kg (200 lb) [...] recommendations, check Vit D and B12 - HOSPICE CLINICAL SUPERVISOR: NPO alternate means of nutrition. Continued reassessments Atrial fibrillation with rapid ventricular response - Pacing leads off - improved this AM - metoprolol, amiodarone drip - holdig anticoagulation 2/ bleeding risk Postoperative respiratory insufficiency -aggressive pulmonary [...] 2019 TIME: 6:14 AM PAGER/CONTACT #: [phone] [facility] THERAPY NTon 07-08-2019 THERAPY NT HNO ID: [id number] Author: Daria (Ccc-Medical Assistant Instructor) YUKI Mccauley/HOSPICE CLINICAL SUPERVISOR Service: Speech/Swallow Author Type: Speech Language Pathologist Type: Therapy (PT/OT/Speech/Resp) Filed: 07/08/2019 3:14 PM Note Text: Speech Therapy Treatment SERVICE DATE: 07/08/2019 SERVICE TIME: 5028 to 6867 ROOM: [id number] Nursing Recommendations: See swallow guide posted in [...] Session -Patient alert, up in bed on HOSPICE CLINICAL SUPERVISOR arrival, agreeable to therapy -Able to feed self with set up assist -Mastication time increased for solids -Trace to minimal oral residuals post swallow, able to clear with HOSPICE CLINICAL SUPERVISOR facilitated liquid wash -Laryngeal movement detected upon [...] Dysphagia, oropharyngeal phase Interventions Provided: Dysphagia Therapy (55377) $ Dysphagia Therapy (73687) Billed Units: 1 unit Skilled Interventions: Provided [...] MAURO, afib, CAD, HTN, hyperlipidemia Patient Report: "I feel better" Home Environment Prior Functional Level: Unable to Assess Assistance Available: Unable to determine at this time Prior Swallowing Function/Diet Textures: Unable to determine at this time Please see discipline specific clinical documentation flowsheet for complete details for this therapy evaluation/treatment. SIGNATURE: Daria Mccauley CCC-HOSPICE CLINICAL SUPERVISOR PATIENT NAME: Elias Shah DATE: July 08, 2019 TIME: 3:09 PM [facility] CONSULTon 07-07-2019 CONSULT HNO ID: [id number] Author: Saeed Philip (Pa) Service: Neurology ICU Author Type: Physician High Speed Printer Operator Type: Consults Filed: 07/07/2019 9:18 PM [...] and coagulopathy w/ thrombocytopenia who presented to [facility] for CABG and AVR. Patient is [...] HERNIA 12/04/2018 after bowel perforation done at [facility] Dr. Young Social History Socioeconomic History Marital [...] file Gets together: Not on file Attends yazidism service: Not on file Active member of [...] Resolved Resolved By Aortic stenosis 07/04/2019 Jim (Sindi) DO Gloria No MAURO (acute kidney injury) (HCC) 05/12/2019 Higinio Mouck No Impaired cognition 05/12/2019 Higinio Mouck No Anemia, unspecified 02/11/2019 Higinio Mouck No Essential hypertension 02/11/2019 Higinio Mouck No Abnormal electrocardiogram (ECG) (EKG) 02/01/2019 Higinio Mouck No Atrial fibrillation with rapid ventricular response (HCC) 02/01/2019 Higinio Mouck No Hyperlipidemia 02/01/2019 Higinio Mouck No Aortic valve stenosis 12/06/2018 Higinio Mouck No Acute metabolic encephalopathy 12/05/2018 Higinio Mouck No Vitamin D deficiency 12/05/2018 Higinio Mouck No Paroxysmal atrial fibrillation (HCC) 12/05/2018 Higinio Mouck No LBBB (left bundle branch block) 12/05/2018 Higinio Mouck No Declining functional status 12/05/2018 Higinio Mouck No Small bowel obstruction (HCC) 12/04/2018 Higinio Mouck No Incarcerated umbilical hernia 12/04/2018 Higinio Mouck No 79 M with significant medical comorbidities [...] 07, 2019 TIME: 8:38 PM PAGER/CONTACT #: [phone] [facility] NURSING PROGon 07-07-2019 NURSING PROG HNO ID: [id number] Author: Suni GusmanRn) AGUSTO Maguire Service: ? [...] continue to monitor, educate and encourage [facility] NURSING PROG HNO ID: [id number] Author: Suni (Rn) AGUSTO Maguire Service: ? [...] and reactive, will continue to monitor [facility] PLAN OF CAREon 07-07-2019 PLAN OF CARE HNO ID: [id number] Author: Angely Mora (Pharmacist) Service: Pharmacy Author Type: Pharmacist Type: Plan of Care Filed: 07/11/2019 3:04 PM Note Text: MEDICATION HISTORY Patient Name:.Elias Shah : 1940 Source of history:Pharmacy records: [facility] (electronic and fax) and Patient: recognized most medications, could not necessarily remember the name of every single medication Medication Nonadherence Identified: No barriers noted The above information represents the best possible medication history: Yes Additional comments: Hpuor-iz-Setbjcmcl Medication List Adjustments: Medication Regimen Changes: Carvedilol [...] 07, 2019 2:31 PM Reconciliation: Yes All FORESTRY PROFESSOR medications addressed by LIP Additional comments: N/A Allergies: ALLERGIES No Known Allergies Preferred Pharmacy: [facility] Current FORESTRY PROFESSOR Medications: Prior to Admission medications as of [...] RELIEF) 50 mcg/actuation nasal spray Use 1 Cass in each nostril once daily. 07/03/2019 at [...] daily. Unknown at Unknown time Risa Garcia (Dietetic Technician Registered) July 07, 2019 1:22 PM [facility] PROGRESSon 07-07-2019 PROGRESS HNO ID: [id number] Author: Marlon Roa) Yana Service: Cardiovascular Surgery Author Type: Physician High Speed Printer Operator Type: Progress Notes Filed: 07/07/2019 4:15 [...] There has been a gradual mental status exchange mechanic the last 12H. Afib RVR continued depsite [...] 07, 2019 TIME: 11:03 AM PAGER/CONTACT #: [phone] ETX [phone] Addendum #[phone] 07/07/[address] brain without contrast now [...] gtt without bolus. Marlon Millan PA-C [facility] PROGRESS HNO ID: [id number] Author: Marlon Dubon Jr. Service: Critical Care [...] HERNIA 12/04/2018 after bowel perforation done at [facility] Dr. Young Social History Socioeconomic History Marital [...] file Gets together: Not on file Attends yazidism service: Not on file Active member of [...] (Src) 100.9 (Temporal) Resp 19 Ht 6' 0" (1.83m) Wt 222 lb 0.1 oz (100.7kg) [...] Respiratory/Nursing Documentation: O2 Therapy: Nasal Cannula (07/07/19 2361) Invasive Ventilator Mode: Continuous Positive Airway Pressure;Pressure Support Ventilation (07/05/19 0810) Set Ventilator Respiratory Rate (BPM): 0 (07/05/19426) [...] July 07, 2019 TIME: 12:42 PM [facility] PROGRESS HNO ID: [id number] Author: Jim Castro DO Service: Cardiac Surgery [...] 2019 TIME: 6:25 AM PAGER/CONTACT #: [phone] [facility] THERAPY NTon 07-07-2019 THERAPY NT HNO ID: [id number] Author: Daria (Ccc-Medical Assistant Instructor) Garrick CCC/HOSPICE CLINICAL SUPERVISOR Service: Speech/Swallow Author Type: Speech Language Pathologist Type: Therapy (PT/OT/Speech/Resp) Filed: 07/07/2019 2:13 PM Note Text: Speech Therapy Clinical Swallow Evaluation SERVICE DATE: 07/07/2019 SERVICE TIME: 1315 to 1330 ROOM: [id number] Nursing Recommendations: See swallow guide posted in [...] oropharyngeal phase Interventions Provided: Clinical Swallow Evaluation (70751) $ Clinical Swallow Evaluation (79978) Billed Units: 1 unit Total Treatment Time [...] MAURO, afib, CAD, HTN, hyperlipidemia Patient Report: "No" Home Environment Prior Functional Level: Unable to Assess Assistance Available: Unable to determine at this time Prior Swallowing Function/Diet Textures: Unable to determine at this time Please see discipline specific clinical documentation flowsheet for complete details for this therapy evaluation/treatment. SIGNATURE: Daria Mccauley CCC-HOSPICE CLINICAL SUPERVISOR PATIENT NAME: Elias Shah DATE: July 07, 2019 TIME: 1:46 PM [facility] ECG COMPLETEon 07-06-2019 ECG COMPLETE NAME : ELIAS SHAH PID : [id number] : 1940 Gender : Male Race : ORD : [id number] Procedure Date : Jul 06 2019 16:54:40 [...] INFARCT PRESENT Confirmed by MD WILKES ANUBHAV ([id number]) on 07/07/2019 8:49:48 AM Ventricular Rate : 126 BPM Atrial Rate : 122 BPM QRS Duration : 104 ms Q-T Interval : 340 ms QTC Calculation(Bazett) : 492 ms R Newell : -39 degrees T Newell : 142 degrees Test Reason : Arrhythmia Location : 6 : [facility] 3229 Overread By : MD WILKES ANUBHAV Edited By : MD WILKES ANUBHAV Referred By : WAYNE RIVERS Acquired by : EDUARDO LEONE [facility] ECG COMPLETE NAME : ELIAS SHAH PID : [id number] : 1940 Gender : Male Race : ORD : [id number] Procedure Date : Jul 06 2019 06:19:49 [...] VENTRICULAR PACEMAKER Confirmed by MD WILKES ANUBHAV ([id number]) on 07/06/2019 1:42:11 PM Ventricular Rate : 136 BPM Atrial Rate : 96 BPM QRS Duration : 100 ms Q-T Interval : 336 ms QTC Calculation(Bazett) : 505 ms R Newell : -40 degrees T Newell : 132 degrees Test Reason [facility] Arrhythmia [facility] : [facility] Overread By : MD WILKES ANUBHAV Edited By : MD WILKES ANUBHAV Referred By : WAYNE RIVERS Acquired by : LUCY DALTON [facility] NURSING PROGon 07-06-2019 NURSING PROG HNO ID: [id number] Author: Earline GusmanRn) AGUSTO Celaya Service: Nursing Author Type: Registered [...] and BP remains stable. See Flowsheet. [facility] PROGRESSon 07-06-2019 PROGRESS HNO ID: [id number] Author: Bhanu (Res) MD Ruth Service: Urology [...] PGY-2 July 06, 2019 6:12 PM Pager: [phone] [facility] PROGRESS HNO ID: [id number] Author: Marlon Millan (Pa) Service: Cardiovascular Surgery Author Type: Physician High Speed Printer Operator Type: Progress Notes Filed: 07/06/2019 5:20 [...] 06, 2019 TIME: 5:00 PM PAGER/CONTACT #: [phone] ETX#[id number] [facility] PROGRESS HNO ID: [id number] Author: Marlon Dubon Jr. Service: Critical Care [...] HERNIA 12/04/2018 after bowel perforation done at [facility] Dr. Young Social History Socioeconomic History Marital [...] file Gets together: Not on file Attends yazidism service: Not on file Active member of [...] (Src) 99 (Temporal) Resp 13 Ht 6' 0" (1.83m) Wt 212 lb 11.9 oz (96.5kg) SpO2 97% BMI 28.85 kg/(m2). O2 Therapy: Nasal Cannula, Liters: 4 Temp (24hrs), Av.5 ?C (99.5 ?F), Min:37.1 ?C (98.8 ?F), Max:38.1 ?C (100.6 ?F) NET FLUID BALANCE Intake/Output Summary (Last 24 hours) at 07/06/2019 1348 Last data filed at 07/06/2019 0900 Gross per 24 hour Intake 9290 ml Output 56300 ml Net -765 ml MEDICATIONS Current Facility-Administered [...] July 06, 2019 TIME: 3:36 PM [facility] PROGRESS HNO ID: [id number] Author: Oc Gustafson (Pa) Service: Cardiac Surgery Author Type: Physician High Speed Printer Operator Type: Progress Notes Filed: 07/06/2019 12:04 [...] per 24 hour Intake 9155 ml Output 90264 ml Net -960 ml TELEMETRY: sinus tachycardia [...] tube have been removed. ?Right internal jugular Maxwell-Ale catheter noted with tip in the pulmonary [...] July 06, 2019 TIME: 9:15 AM PAGER/CONTACT #:[phone] ETX [phone] [facility] PROGRESS HNO ID: [id number] Author: Abraham Lorenzo Service: Urology Author Type: [...] per 24 hour Intake 9155 ml Output 04951 ml Net -995 ml Physical Exam: General: [...] 7.346 (L) 7.350 - 7.450 Final Specific [place], Ur Date Value Ref Range Status 06/27/2019 [...] PGY-2 July 06, 2019 7:32 AM Pager: [phone] Attending Note I evaluated the patient and personally participated in the simmons components. I agree with the resident's findings and plan as documented and have discussed the case and management of the patient's care with the resident. Signature: Abraham Lorenoz DO, MBA Date: 07/06/2019 Time: 10:19 AM [facility] PROGRESS HNO ID: [id number] Author: Jim Castro DO Service: Cardiac Surgery [...] 07/06/2019 0400 Gross per 24 hour Intake 80557 ml Output 97712 ml Net -1239 ml TELEMETRY: Afib with RVR PHYSICAL EXAM: General: Well developed and well nourished appearance. Mild distress. Skin: No rash on chest, arms or legs. Warm, dry. Head/Eyes: Sclera clear, normal conjunctiva. EOMI. Mouth/Pharynx: Teeth: Fair dentition. No lesions. Neck: No JVD. Supple. R IJ Maxwell Ale catheter Lungs: Unlabored breathing on ventilator [...] 2019 TIME: 6:05 AM PAGER/CONTACT #: [phone] [facility] THERAPY NTon 07-06-2019 THERAPY NT HNO ID: [id number] Author: Crystal GusmanOtr/Carleen Berrios Service: Occupational Therapy Author Type: Occupational Therapist Type: Therapy (PT/OT/Speech/Resp) Filed: 07/06/2019 4:11 PM Note Text: Occupational Therapy Evaluation SERVICE DATE: 07/06/2019 SERVICE TIME: 1345 to 1355 ROOM: [place] [address] Recommended Discharge Disposition: Subacute/SNF Recommended Discharge Disposition [...] and Awareness Interventions Provided: Evaluation $ Evaluation-Moderate (19411) Billed Units: 1 unit OT Evaluation Moderate [...] hospital for a heart surgery, he responded "No." Home Environment Patient Lives With: Family(sister) Assistance Available: multimedia engineer Entry To Home: Stairs Prior Functional Level: [...] details for this therapy evaluation/treatment. SIGNATURE: Leah Fletcher/SANJEEV PATIENT NAME: Elias Shah DATE: July 06, 2019 TIME: 2:45 PM Evaluation and/or treatment directly supervised by licensed Occupational Therapist. I reviewed and agree with the documentation corresponding to this therapy visit. SIGNATURE: ERIC Montague/Carroll DATE: July 06, 2019 TIME: 4:11 PM [facility] THERAPY NT HNO ID: [id number] Author: Misa Felipe Service: Physical Therapy Author Type: Physical Therapist Type: Therapy (PT/OT/Speech/Resp) Filed: 07/06/2019 2:51 PM Note Text: Physical Therapy Evaluation SERVICE DATE: 07/06/2019 SERVICE TIME: 6220 to 1415 ROOM: [place] [address] Recommended Discharge Disposition: Subacute/SNF Recommended Discharge Disposition [...] Patient TREATMENT INTERVENTIONS: Interventions Provided: Evaluation;Gait Training (98324) $ Evaluation-Moderate (89201) Billed Units: 1 unit History and examination of body systems see assessment section above. This patient?s clinical presentation is evolving. The patient required a moderate complexity evaluation. Gait Training (06365) Treatment Minutes: 8 1 unit Skilled Intervention(s): [...] Patient Lives With: Family(sister) Assistance Available: multimedia engineer Entry To Home: Stairs Prior Functional Level: [...] July 06, 2019 TIME: 2:44 PM [facility] CASE MGT INIT DEVANon 2018 CASE MGT INIT DEVAN HNO ID: [id number] Author: Imelda (Rn) AGUSTO Rizvi Service: ? [...] cured/healed Health Insurance: [facility]IC[facility] A AND B [facility] Issues Impacting Discharge Plan: Newly diagnosed CABG Last Discharge Date: 05/25/19 Is this Within the Past 30 days? No Advance Directive: Current Advance Directive: Health Care Power of Financial Director;Living Will In Chart: Yes Up To Date [...] Walker Has the Patient Been in a [facility] Facility in the Past 30 days? No [...] meeting these needs: home with sister and [facility] Does the patient have an acute stroke diagnosis, or has the patient had a stroke during this admission? No Medication Adherence: I am convinced of the importance of my prescription medication: Agree completely - 0 I worry that my prescription medication will do more harm than good to me Disagree completely - 0 I feel financially burdened by my tff-we-gwjosr expenses for my prescription medication: Disagree completely [...] Needs: None FREEDOM OF CHOICE EXPLAINED: Yes [facility] Financial Disclosure Provided Preference: VNS POTENTIAL TRANSITION PLANS Home Home Care Met with pt, explained CM role. Ind visitor services technician. Discussed post CABG disch needs. Planis home with sister's assist. Agreeable to VNS - referral created. SIGNATURE: Imelda Rizvi RN PATIENT NAME: Elias Shah DATE: July 05, 2019 TIME: 3:01 PM PAGER/CONTACT #: [phone] [facility] ECG COMPLETEon 07-05-2019 ECG COMPLETE NAME : ELIAS SHAH PID : [id number] : 1940 Gender : Male Race : ORD : [id number] Procedure Date : Jul 05 2019 04:46:58 Edit Date : Jul 05 2019 08:38:13 Diagnosis:AV dual-paced rhythm ABNORMAL ECG WHEN COMPARED WITH ECG OF 04-JUL-2019 15:30, VENT. RATE HAS INCREASED BY 63 BPM Confirmed by MD CHUNG, ABDELRAHMAN ([id number]) on 07/05/2019 8:38:12 AM Ventricular Rate : 139 BPM Atrial Rate : 139 BPM QRS Duration : 36 ms Q-T Interval : 170 ms QTC Calculation(Bazett) : 258 ms R Newell : 88 degrees T Newell : -58 degrees Test Reason : Post-OP Location : 6 : [place] [address] Overread By : MD WILKES ANUBHAV Edited By : MD WILKES ANUBHAV Referred By : WAYNE RIVERS Acquired by : SAÚL HOWARD [facility] NUTRITIONon 07-05-2019 NUTRITION HNO ID: [id number] Author: Teresa (Director Of Patient Financial Services) [place] Service: Nutrition Therapy Author Type: State Pilot Type: Nutrition Filed: 07/05/2019 2:33 PM Note Text: Attestation signed by Yasmine Sanchez RD at 07/05/2019 3:04 PM NUTRITION THERAPY: TEACHING DIETITIAN NOTE OF PERSONAL INVOLVEMENT OF CARE. I have reviewed and agree with the assessment as documented by the video production intern. I have discussed the case and management of the patient?s nutrition therapy with the video production intern. SIGNATURE: Yasmine Sanchez RD, LD DATE: [...] Resting Metabolic Rate: 1712 Estimated kilocalorie needs: 7323-2954 kilocalories determined by 25-30 kcal/kg Estimated protein needs: 115-145 grams determined by 1.2-1.5 g/kg Dosing weight Estimated fluid needs: 1632-9530 milliliters based on 1 mL per kcal [...] Type: Initial Assess/15 min 3 units SIGNATURE: Hi Biggs PATIENT NAME: Elias Shah DATE: July 05, 2019 TIME: 9:28 AM PAGER: [phone] [facility] PROGRESSon 07-05-2019 PROGRESS HNO ID: [id number] Author: Marlon Millan (Pa) Service: Cardiovascular Surgery Author Type: Physician High Speed Printer Operator Type: Progress Notes Filed: 07/05/2019 2:58 [...] 07/05/2019 1200 Gross per 24 hour Intake 94192.1 ml Output 01152 ml Net 1573.1 ml TELEMETRY: Paced with [...] 05, 2019 TIME: 2:23 PM PAGER/CONTACT #: [phone] [phone] [facility] PROGRESS HNO ID: [id number] Author: Earline (Rn) AGUSTO Celaya Service: Nursing Author Type: Registered Nurse Type: Progress Notes Filed: 07/05/2019 12:46 PM Note Text: 1105: pt extubated to 4L nc without distress. [facility] PROGRESS HNO ID: [id number] Author: Bhanu (Res) MD Ruth Service: Urology [...] 07/05/2019 0700 Gross per 24 hour Intake 93039.1 ml Output 65565 ml Net 1644.1 ml Physical Exam: General: [...] 7.346 (L) 7.350 - 7.450 Final Specific [place], Ur Date Value Ref Range Status 06/27/2019 [...] PGY-2 July 05, 2019 11:23 AM Pager: [phone] [facility] PROGRESS HNO ID: [id number] Author: Marlon Dubon Jr. Service: Critical Care [...] HERNIA 12/04/2018 after bowel perforation done at [facility] Dr. Young Social History Socioeconomic History Marital [...] file Gets together: Not on file Attends yazidism service: Not on file Active member of [...] 70 Temp 99.3 Resp 14 Ht 6' 0" (1.83m) Wt 212 lb 8.4 oz (96.4kg) SpO2 100% BMI 28.82 kg/(m2). O2 Therapy: Ventilator, %FIO2: 40 Temp (24hrs), Av.4 ?C (97.6 ?F), Min:32.2 ?C (90 ?F), Max:37.6 ?C (99.7 ?F) NET FLUID BALANCE Intake/Output Summary (Last 24 hours) at 07/05/2019 1030 Last data filed at 07/05/2019 0700 Gross per 24 hour Intake 69003.1 ml Output 43147 ml Net 1644.1 ml MEDICATIONS Current Facility-Administered [...] July 05, 2019 TIME: 10:30 AM [facility] PROGRESS HNO ID: [id number] Author: Jim Castro DO Service: Cardiac Surgery [...] 07/05/2019 0400 Gross per 24 hour Intake 18329.1 ml Output 58220 ml Net 454.1 ml TELEMETRY: A-V sequential pacing PHYSICAL EXAM: General: Well developed and well nourished appearance. No acute distress. Skin: No rash on chest, arms or legs. Warm, dry. Head/Eyes: Sclera clear, normal conjunctiva. EOMI. Mouth/Pharynx: Teeth: Fair dentition. No lesions. Neck: No JVD. Supple. R IJ Maxwell Ale catheter Lungs: Unlabored breathing on ventilator [...] 2019 TIME: 6:11 AM PAGER/CONTACT #: [phone] [facility] PROGRESS HNO ID: [id number] Author: Joel (Rn) AGUSTO Resendez Service: Critical Care Author Type: Registered Nurse Type: Progress Notes Filed: 07/05/2019 4:22 AM Note Text: HAND H 1 hour after completion of PRBC infusion 6.[address] Rivers paged twice. RN reported lab to Dr. Kincaid. See new orders. [facility] THERAPY NTon 07-05-2019 THERAPY NT HNO ID: [id number] Author: Crystal GusmanOtr/Carleen Berrios Service: Occupational Therapy Author Type: Occupational Therapist Type: Therapy (PT/OT/Speech/Resp) Filed: 07/05/2019 11:54 AM Note Text: OCCUPATIONAL THERAPY MISSED VISIT SERVICE DATE: 07/05/2019 SERVICE TIME: 1154 to 1154 ROOM: [place] [address] Attempted Evaluation. Patient not seen due to Illness(intubted). Will continue to follow as able and appropriate. SIGNATURE: ERIC Montague/Carroll PATIENT NAME: Elias Shah DATE: July 05, 2019 TIME: 11:54 AM [facility] THERAPY NT HNO ID: [id number] Author: Nohemi GusmanPt) Shefali Service: Physical Therapy Author Type: Physical Therapist Type: Therapy (PT/OT/Speech/Resp) Filed: 07/05/2019 8:54 AM Note Text: PHYSICAL THERAPY MISSED VISIT SERVICE DATE: 07/05/2019 SERVICE TIME: 0853 to 0853 ROOM: [place] [address] Attempted Evaluation. Patient not seen due to Illness(intubated). Will continue to follow patient as able. SIGNATURE: Nohemi Meehan PT PATIENT NAME: Elias Shah DATE: July 05, 2019 TIME: 8:54 AM [facility] ANES Namita 07-04-2019 ANES POST HNO ID: [id number] Author: Dion Monroe Service: Anesthesiology Author Type: Physician Type: Anesthesia PostOp Filed: 07/04/2019 7:58 PM Note Text: POST ANESTHESIA EVALUATION NOTE SERVICE DATE: 07/04/2019 SERVICE TIME: 7:58 PM : 1940 Vitals: 07/04/19 1615 07/04/19 1630 07/04/19 1639 07/04/19 1645 Temp: (!) 32.2 ?C (90 ?F) (!) 34.9 ?C (94.8 ?F) (!) 32.5 ?C (90.5 ?F) (!) 33.1 ?C (91.6 ?F) 07/04/19 18107/04/19 1830 07/04/19 18407/04/19 1900 Arterial BP 1: 129/58 123/54 138/62 128/57 BP: 07/04/19 1815 07/04/19 1830 07/04/19 18407/04/19 1900 Pulse: 70 70 70 70 07/04/19 18107/04/19 1830 07/04/19 18407/04/19 1900 Resp: 14 14 16 17 07/04/19181407/04/19 1830 07/04/19 18407/04/19 1900 SpO2: 100% 100% 100% 100% Validated [...] 04, 2019 TIME: 7:58 PM PAGER/CONTACT #: [phone] [facility] ANES PREOPon 07-04-2019 ANES PREOP HNO ID: [id number] Author: Burak Gamez Service: ? Author Type: [...] HERNIA 12/04/2018 after bowel perforation done at [facility] Dr. Young FAMILY HISTORY Problem Relation Age [...] RELIEF) 50 mcg/actuation nasal spray Use 1 Cass in each nostril once daily. Cholecalciferol, Vitamin [...] (VANCOCIN) 1 g INTRAVENOUS ONCE Oc Roa) - heparin 3,000 Units in NaCl 0.9% [...] mL (ZACH-SYNEPHRINE) 0-100 mcg/min INTRAVENOUS ONCE Wayne A Lahorra [...] July 04, 2019 TIME: 7:33 AM CSN: [id number] [facility] BRIEF OP NOTon 07-04-2019 BRIEF OP NOT HNO ID: [id number] Author: Jim Castro DO Service: Cardiac Surgery [...] BRIEF OPERATIVE / PROCEDURE NOTE LOG ID: [id number] SURGERY/PROCEDURE DATE: 07/04/2019 INCISION/PROCEDURE START TIME: 8:32 AM INCISION CLOSE/PROCEDURE END TIME: 1:40 PM SURGEON(S)/PROCEDURAL IST(S) AND POST HOLE DIGGER(S): Surgeon(s) and Role: * Wayne Rivers - Primary * Jim Castro DO - Resident - Assisting Physician High Speed Printer Operator: Aubree Raman (Pa) Bricklayer: Joellen Rivas SA SURGERY/PROCEDURE(S): Two vessel cardiac [...] TIME: 2:06 PM PAGER/CONTACT #: [phone] [facility] CONSULTon 07-04-2019 CONSULT HNO ID: [id number] Author: Bhanu Miranda MD Service: Urology Author Type: Resident Type: Consults Filed: 07/04/2019 7:20 PM Note Text: Attestation signed by Kiran Son at 07/05/2019 2:31 PM I saw and evaluated the patient. Discussed with the resident and agree with resident's findings and plan as documented in the resident's note.`Pts urine zeenat, wean CBI to off, fofllow Kiran Son MD Urology Inpatient Consultation 07/04/2019 HISTORY [...] HERNIA 12/04/2018 after bowel perforation done at [facility] Dr. Young ALLERGIES: ALLERGIES No Known Allergies [...] RELIEF) 50 mcg/actuation nasal spray Use 1 Cass in each nostril once daily. Disp: Rfl: [...] 07/04/2019 7.410 7.350 - 7.450 Final Specific [place], Ur Date Value Ref Range Status 06/27/2019 [...] Bhanu Miranda MD 07/04/2019 7:07 PM [facility] ECG COMPLETEon 07-04-2019 ECG COMPLETE NAME : ELIAS SHAH PID : [id number] : 1940 Gender : Male Race : ORD : [id number] Procedure Date : Jul 04 2019 15:30:55 Edit Date : Jul 05 2019 08:38:41 Diagnosis:AV dual-paced rhythm with prolonged AV conduction ABNORMAL ECG WHEN COMPARED WITH ECG OF 04-JUL-2019 14:32, VENT. RATE HAS INCREASED BY 6 BPM Confirmed by MD WILKES ANUBHAV ([id number]) on 07/05/2019 8:38:40 AM Ventricular Rate : 76 BPM Atrial Rate : 76 BPM P-R Interval : 368 ms QRS Duration : 38 ms Q-T Interval : 374 ms QTC Calculation(Bazett) : 420 ms R Newell : 90 degrees T Newell : -30 degrees Test Reason : Arrhythmia Location : 6 : [place] [address] Overread By : MD WILKES ANUBHAV Edited By : MD WILKES ANUBHAV Referred By : WAYNE RIVERS Acquired by : ELKE DUMONT [facility] ECG COMPLETE NAME : ELIAS SHAH PID : [id number] : 1940 Gender : Male Race : ORD : [id number] Procedure Date : Jul 04 2019 14:32:24 Edit Date : Jul 05 2019 08:37:21 Diagnosis:Atrial-sens ed ventricular-paced rhythm with prolonged AV conduction ABNORMAL ECG NO PREVIOUS ECGS AVAILABLE Confirmed by MD WILKES ANUBHAV ([id number]) on 07/05/2019 8:37:20 AM Ventricular Rate : 70 BPM Atrial Rate : 70 BPM P-R Interval : 352 ms QRS Duration : 32 ms Q-T Interval : 368 ms QTC Calculation(Bazett) : 397 ms R Newell : 90 degrees T Newell : -43 degrees Test Reason : Post-OP Location : 6 : [place] [address] Overread By : MD WILKES ANUBHAV Edited By : MD WILKES ANUBHAV Referred By : WAYNE RIVERS Acquired by : [id number], [facility] HISTORY PHYSICALon HISTORY PHYSICAL HNO ID: [id number] Author: Jim (Luis Enrique Castro DO Service: [...] July 04, 2019 TIME: 6:45 AM PAGER: [phone] [facility] NURSING PROGon 07-04-2019 NURSING PROG HNO ID: [id number] Author: Stephany Shaikh) AGUSTO Peterson Service: ? Author Type: Registered Nurse Type: Nursing Progress Note Filed: 07/04/2019 6:52 PM Note Text: 1800 Discussed extubation plan with Elke Buckley RT in room. PLan is to complete weaning parameters at 1830. 1830 RT paged to complete weaning paramters. Stephany Peterson RN 1850 RT paged to complete weaning parameters. AGUSTO [facility] OPERATIVE NOon 07-04-2019 OPERATIVE NO HNO ID: [id number] Author: Wayne Rivers Service: Cardiac Surgery Author Type: Physician Type: Operative Report Filed: 07/05/2019 6:23 PM Note Text: [facility] - Operative Report ELIAS SHAH : 1940 AGE: 79. SEX: M PATIENT TYPE: I HOSP SVC: ORCA LOCATION: [id number] ATTENDING PHYSICIAN: WAYNE RIVERS CSN NUMBER: [id number] DATE OF SURGERY/PROCEDURE: 07/04/2019 INCISION/PROCEDURE START TIME: 8:32 AM INCISION CLOSE/PROCEDURE END TIME: 1:40 PM PREOPERATIVE DIAGNOSIS: Multivessel coronary disease; severe aortic stenosis; paroxysmal atrial fibrillation. POSTOPERATIVE DIAGNOSIS: Multivessel coronary disease; severe aortic stenosis; paroxysmal atrial fibrillation. SURGEON: Wayne Rivers MD POST HOLE DIGGER: Ms. Raman and Ms. Rivas. SURGERY/PROCEDURE: Aortic [...] in layers with absorbable suture. The sternal smoke eater was placed in the wound. A pericardial [...] CV-ICU in good condition. Wayne Rivers MD JAL:[id number] [facility] PROGRESSon 07-04-2019 PROGRESS HNO ID: [id number] Author: Joel (Rn) AGUSTO Resendez Service: Critical Care Author Type: Registered Nurse Type: Progress Notes Filed: 07/04/2019 8:16 PM Note Text: Weaning parameters not met. NIF -12 and pt very drowsy. Dr. Kincaid notified. Plan is to recheck parameters at 2100 and re evaluate for extubation. [facility] PROGRESS HNO ID: [id number] Author: Marlon Dubon Jr. Service: Critical Care [...] HERNIA 12/04/2018 after bowel perforation done at [facility] Dr. Young Social History Socioeconomic History Marital [...] file Gets together: Not on file Attends yazidism service: Not on file Active member of [...] 70 Temp 96.6 Resp 14 Ht 6' 0" (1.83m) Wt 200 lb (90.7kg) SpO2 100% [...] July 04, 2019 TIME: 2:38 PM [facility] CONSULT PROGon 06-28-2019 CONSULT PROG HNO ID: [id number] Author: Higinio Bacon Service: Cardiac Surgery Author [...] 2.42% CABG/AVR CARE TEAM: Cardiac Surgeon: Carlitos Cushion Installer: Primo PCP: Regla Other Providers: Pre-Op Testing: [...] with VKA drugs, such as warfarin, the [place] [employer] 2012 Guideline recommends [...] et al. Chest 2012; 141:7S-47S Maria Victoria RA, et al. JACC 2017; 70: 252-289 Anemia Evaluation: Anemic: Yes Accept Blood: Yes Blood Conservation Committee: No Ferritin: N/A FE+TIBC: N/A Fe Sat: N/A FOBT: N/A Anemia Treatment: Oral Iron UA pH, Urine Date Value Ref Range Status 06/27/2019 6.0 5.0 - 8.0 Final Specific [place], Ur Date Value Ref Range Status 06/27/2019 [...] Vascular surgery No Other No Higinio Bacon APRN.CNP [facility] CNOVon 06-27-2019 CNOV Office Visit (AGVASACC) ELIAS SHAH ([id number]) 1940 M Date Time Provider Department 06/27/19 [...] Normal sinus rhythm. - CAD of the port gamble vessel. No interventions. Stable with no angina [...] HERNIA 12/04/2018 after bowel perforation done at [facility] Dr. Young FAMILY HISTORY Problem Relation Age [...] RELIEF) 50 mcg/actuation nasal spray Use 1 Cass in each nostril once daily. loperamide (IMODIUM) [...] Large dominant vessel with eccentric proximal disease shilian has severe forcal calcified stenosis on IVUS [...] (primary diagnosis) 2. Coronary artery disease involving port gam[place] heart, angina presence unspecified, unspecified vessel or [...] 1.13, repeat is pending today Higinio Bacon APRN.WASHHOUSE HAND Tests/Labs Ordered: 1. CBC 2. CMP 3. HbA1c (average sugar test) 4. Lipids 5. Urinalysis 6. MRSA 7. Incentive spirometry 8. PT/INR 9. Magnesium These findings will be communicated back to the requesting provider electronically. SIGNATURE: Higinio Bacon APRN.CNP PATIENT NAME: Elias Shah DATE: June 27, 2019 TIME: 10:51 AM PAGER/CONTACT #: [phone] Higinio Bacon APRN.CNP 06/27/2019 2:06 PM Addendum [facility] Pre-Admission Patient Instruction You [...] at home. Remove all make-up and nail uzbek before admission. We need to check your [...] Bacon APRN.KEE June 27, 2019 Higinio Bacon APRN.CNP 06/27/2019 2:23 PM Signed [...] [I35.0] Other Visit Diagnoses:Coronary artery disease involving port gamble heart, angina presence unspecified, unspecified vessel or [...] FLONASE ALLERGY RELIEF 50 MCG* Use 1 Cass in each nostril o* LOPERAMIDE 2 MG [...] INVALID FOR* Other instructions from your clinician: [facility] Pre-Admission Patient Instruction You [...] at home. Remove all make-up and nail uzbek before admission. We need to check your [...] morning of surgery. Start 06/27/2019 Higinio Bacon APRN.WASHHOUSE HAND June 27, 2019 Prescriptions ordered this encounter [...] Course of therapy completed Encounter Status:Closed by JORDI OTEROSHAUNIN on 06/27/19 [facility] HISTORY PHYSICALon HISTORY PHYSICAL HNO ID: [id number] Author: Higinio Bacon Service: ? Author Type: [...] Normal sinus rhythm. - CAD of the port gam[place] vessel. No interventions. Stable with no angina [...] HERNIA 12/04/2018 after bowel perforation done at [facility] Dr. Young FAMILY HISTORY Problem Relation Age [...] RELIEF) 50 mcg/actuation nasal spray Use 1 Cass in each nostril once daily. loperamide (IMODIUM) [...] (primary diagnosis) 2. Coronary artery disease involving port gam[place] heart, angina presence unspecified, unspecified vessel or [...] the requesting provider electronically. SIGNATURE: Higinio Bacon APRN.[facility] PATIENT NAME: Elias Shah DATE: June 27, 2019 TIME: 10:51 AM PAGER/CONTACT #: [phone] [facility] PROGRESSon 06-27-2019 PROGRESS HNO ID: [id number] Author: Higinio Bacon Service: ? Author Type: [...] 24.719% Long Length of Stay: 7.222% [facility] Oswaldo 06-20-2019 CNPN Telephone (AGVASACC) ELIAS SHAH ([id number]) 1940 M Date Time Provider Department 06/20/19 [...] no record of) The patient comes from [place] and they don't want to Make two trips to [place] for the same reason. Amalia is not understanding what is going on and she's frustrated and would like to speak with Higinio at [phone] Higinio Bacon, ADRYAN.KEE 06/20/2019 11:09 AM Signed I called and spoke to Mrs Zamora. They do not need to come to the appointment on 06/21. That was scheduled in anticipation of TAVR. Mr Shah is not a TAVR candidate. He need CABG/AVR. This is scheduled 07/04. He has a PAT appointment with [place] 06[place]27 at 1 pm. She verbalized understanding and agreed to this plan. Higinio Bacon, EVALUATION ADVISOR.KEE Allergies As of Date: 06/20/2019 (No Known Allergies) Date Reviewed: 05/25/2019 Reviewed by: Quinn (Agusto) AGUSTO Rodrgiues - Fully Assessed Reason for Visit: Question [1635] Reason For Visit History Recorded Prescriptions as [...] ridge* FLUTICASONE PROPIONATE 50 MCG* Use 1 Cass in each nostril o* LOPERAMIDE 2 MG [...] Encounter Status:Closed by LUDIVINA LAWSON on 06/20/19 [facility] Oswaldo 06-15-2019 [facility] Telephone ([employer]) ELIAS SHAH ([id number]) 1940 M Date Time Provider Department 06/15/19 [...] Schedule Surgery [1330] Order(s):SURGICAL REQUEST - ELECTIVE [[id number]] Order #: [id number]: 1 Prescriptions as of 06/15/2019 Sig: ASPIRIN [...] ridge* FLUTICASONE PROPIONATE 50 MCG* Use 1 Cass in each nostril o* LOPERAMIDE 2 MG [...] Encounter Status:Closed by LESLEY SANTANA on 06/16/19 [facility] HOSPon 06-15-2019 HOSP Patient:Manav Shah rd MRN: Height:6' 0"(1.829 m) Weight:200 lb (90.719 kg) Outpatient Medications [...] 40.1 Progress Notes (JALYN AG [facility]VS): Higinio Bacon APRN.CNP 06/28/2019 1:42 PM Addendum [...] Normal sinus rhythm. - CAD of the port gamble vessel. No interventions. Stable with no angina [...] HERNIA 12/04/2018 after bowel perforation done at [facility] Dr. Young FAMILY HISTORY Problem Relation Age [...] RELIEF) 50 mcg/actuation nasal spray Use 1 Cass in each nostril once daily. loperamide (IMODIUM) [...] (primary diagnosis) 2. Coronary artery disease involving port gam[place] heart, angina presence unspecified, unspecified vessel or [...] 2019 TIME: 10:51 AM PAGER/CONTACT #: [phone] Previous Version Higinio Bacon APRN.CNP 06/27/2019 2:06 PM Addendum [facility] Pre-Admission Patient Instruction You [...] at home. Remove all make-up and nail uzbek before admission. We need to check your [...] no record of) The patient comes from [place] and they don't want to Make two trips to [place] for the same reason. Amalia is not understanding what is going on and she's frustrated and would like to speak with Higinio at [phone] Higinio Bacon APRN.CNP 06/20/2019 11:09 AM Signed I called and spoke to Mrs Zamora. They do not need to come to the appointment on 06/21. That was scheduled in anticipation of TAVR. Mr Shah is not a TAVR candidate. He need CABG/AVR. This is scheduled 07/04. He has a PAT appointment with [place] 06[place] at 1 pm. She verbalized understanding and agreed to this plan. Higinio Bacon APRN.KEE [facility] BRIEF OP NOTon 05-25-2019 BRIEF OP NOT HNO ID: [id number] Author: Roger Bone Service: Interventional Cardiology Author Type: Physician Type: Brief Op Note Filed: 05/25/2019 1:15 PM Note Text: CARDIAC CATHETERIZATION REPORT PATIENT NAME: Elias Shah SERVICE DATE: 05/25/2019 SERVICE TIME: 1:05 PM Cushion Installer: Roger Bone MD Attending: Rogre Bone RECOMMENDATIONS: Patient will need further discussion [...] May 25, 2019 TIME: 1:05 PM [facility] NURSING PROGon 05-25-2019 NURSING PROG HNO ID: [id number] Author: Quinn GusmanRn) AGUSTO Rodrigues Service: ? Author Type: Registered Nurse Type: Nursing Progress Note Filed: 05/25/2019 3:26 PM Note Text: Report to Sharon OLGUIN [facility] NURSING PROG HNO ID: [id number] Author: Quinn GusmanRn) AGUSTO Rodrigues Service: ? Author Type: Registered Nurse Type: Nursing Progress Note Filed: 05/25/2019 3:22 PM Note Text: Dr. Promise Bone aware of patient HR and blood pressure and advised okay to discharge when TR band is removed, no further orders given. [facility] PROGRESSon 05-25-2019 PROGRESS HNO ID: [id number] Author: Sharon GusmanRn) AGUSTO León Service: Nursing Author Type: Registered Nurse Type: Progress Notes Filed: 05/25/2019 4:19 PM Note Text: Upon removal of R-Band, patient's right radial site began to ooze bright red blood. Dressing changed and pressured applied by RN. Minimal drainage on bandage. Extra gauze dressing and tegaderm sent home with patient and instructed on what to do if bleeding occurs. [facility] HOSPon 05-13-2019 HOSP Patient:Manav Shah rd K MRN: Height:6' 0"(1.829 m) Weight:197 lb (89.359 kg) Outpatient Medications [...] 39.3 % 05/20/2019 51.0 39.0 Progress Notes (CARD AG JUAN ANDERSONB): Torie Henriquez, RN, RN 05/18/2019 3:47 PM Addendum Patient scheduled for left heart cath, Saturday May 25, 2019, with Dr Bone . Instructions reviewed. Questions answered. Patient verbalized understanding. Instructions were as follows: -[facility] May 25, 2019 at time assigned by [facility] kiln labourer staff in phone call 2:00 and 5:00 PM.. -Nothing by mouth after midnight evening prior. -With a sip of water on May 25, 2019 morning take: Aspirin 325mg along with usual BP meds Norvasc and Coreg -Labs to be done CBC, BMP - You must have someone drive you home from your procedure. -kiln labourer policy is pt not be alone first evening Office phone number provided for questions or concerns. Torin: [facility] construction or leak gang laborer notified. Ameena at [facility] construction or leak gang laborer notified of update on changing from Dr. Green to Dr. Bone as noted above. Torie Henriquez RN Previous Version Martha Guillen [place] 05/20/2019 10:03 AM Signed Patient has Medicare A AND B primary coverage so does not require prior authorization. We have started a new process to provide estimates to our patients for their upcoming appointment at [facility]. The purpose is to make you [...] ran for you. Martha Guillen Progress Notes ([facility]): Latisha Matthews RN 05/11/2019 1:23 [...] understanding. Instructions were as follows: -[facility] May 25, 2019 at time assigned by [facility] kiln labourer staff in phone call 2:00 -5:00 PM.. -Nothing by mouth after midnight evening prior. -With a sip of water on Saturday May 25, 2019 morning take: Aspirin 325mg along with usual BP meds- coreg and Norvasc -Labs to be done CBC, BMP - You must have someone drive you home from your procedure. -kiln labourer policy is pt not be alone first evening Office phone number provided for questions or concerns. Torin: [facility] construction or leak gang laborer notified. [facility] CNOVon 05-11-2019 CNOV Office Visit (AGCARDPOB) ELIAS SHAH ([id number]) 1940 M Date Time Provider Department 05/11/19 10:30 AM ESPINOZA BASS AGCARDPOBishop During your visit today, we recorded the [...] HERNIA 12/04/2018 after bowel perforation done at [facility] Dr. Young FAMILY HISTORY Problem Relation Age [...] RELIEF) 50 mcg/actuation nasal spray Use 1 Cass in each nostril once daily. loperamide (IMODIUM) [...] Allergies Cardiac Testing Transesophageal echocardiogram performed in [place] in February 2019: Ejection fraction 65%, severe restriction of the aortic valve with moderate to severe aortic stenosis with a peak gradient of 52 mmHg, mean gradient of 28 mmHg. Transthoracic echocardiogram performed in November 2018 at [facility]: Ejection fraction 68%, peak and [...] 140/64 Pulse 48 Resp 16 Ht 6' 0" (1.83m) Wt 195 lb 12.8 oz (88.8kg) [...] heart catheterization and coronary angiogram performed at [place] which reflected mild coronary artery disease, but [...] - ECHO 2. Coronary artery disease involving [place] coronary artery of [place] heart without angina pectoris - ICD9: 414.01, [...] Espinoza Bass MD Referring Provider: GERALD ANN [[id number]] Allergies As of Date: 05/11/2019 (No Known Allergies) Date Reviewed: 05/11/2019 Reviewed by: Rebecca Ballard - Fully Assessed Reason for Visit: New Patient [172] Primary Visit Diagnosis:Nonrheumati c aortic valve stenosis [I35.0] Other Visit Diagnoses:Coronary artery disease involving [place] coronary artery of [place] heart without angina pectoris [I25.10] Pre-op evaluation [Z01.818] Essential hypertension [I10] Order(s):LEFT HEART CATH,PERCUTANEOUS [89413WZU] Order #: [id number]: 1 ECHO [193210] Order #: [id number]: 1 FUTURE perflutren lipid microspheres (DEFINITY) 1.1 [...] ridge* FLUTICASONE PROPIONATE 50 MCG* Use 1 Cass in each nostril o* LOPERAMIDE 2 MG [...] denies any cardiac complaints today. Rebecca Ballard [facility] Prescriptions ordered this encounter Disp Refills Start End PERFLUTREN LIPID MICROSPHERES 1.1 MG* 1.3 * 0 05/11/2019 05/10/2020 Class: In Office Route: INTRAVENOUS Sig: Inject 1.3 mL intravenously as directed. Disposition: Return in about 1 month (around 06/10/2019). Follow-up and Disposition History Recorded Encounter Status:Closed by ESPINOZA BASS on 05/11/19 [facility] CNOV Office Visit (AGCARDPOB) ELIAS SHAH ([id number]) 1940 M Date Time Provider Department 05/11/19 [...] Wayne Rivers MD Referring Provider: GERALD ANN [[id number]] Allergies As of Date: 05/11/2019 (No Known Allergies) Date Reviewed: 05/11/2019 Reviewed by: Rebecca Ballard - Fully Assessed Reason for Visit: Cardiology Follow Up [1732] Primary Visit Diagnosis:Preoperativ e cardiovascular examination [Z01.810] Other Visit Diagnoses:Coronary artery disease involving [place] coronary artery of [place] heart without angina pectoris [I25.10] Nonrheumatic aortic valve stenosis [I35.0] Order(s):perflutren lipid microspheres (DEFINITY) 1.1 mg/mL injection (to be provided with echo procedure)Inject 1.3 mL intravenously as directed.Disp: 1.3 mLRfl: 0 LEFT HEART CATH/CORON/LV () [0410176] Order #: [id number] Prescriptions as of 05/11/2019 Sig: PERFLUTREN LIPID MICROSPHERES* Inject 1.3 mL intravenously a* LACTOBACILLUS ACIDOPH-LACTASE* Take by mouth twice daily. ACETAMINOPHEN 500 MG CAPSULE Take 2 capsules by mouth twic* AMLODIPINE 5 MG TABLET Take 5 mg by mouth once daily. CARVEDILOL 25 MG TABLET Take 25 mg by mouth three ridge* FLUTICASONE PROPIONATE 50 MCG* Use 1 Cass in each nostril o* LOPERAMIDE 2 MG [...] mL intravenously as directed. Level of Service: [facility] PATIENT VISIT LEVEL 1 [77124] Encounter Status:Closed by WAYNE RIVERS MD on 05/17/19 [facility] Oswaldo 05-11-2019 [facility] Telephone (AGCARDPOB ) ELIAS SHAH ([id number]) 1940 M Date Time Provider Department 05/11/19 [...] understanding. Instructions were as follows: -[facility] May 25, 2019 at time assigned by [facility] kiln labourer staff in phone call 2:00 -5:00 PM.. -Nothing by mouth after midnight evening prior. -With a sip of water on Saturday May 25, 2019 morning take: Aspirin 325mg along with usual BP meds- coreg and Norvasc -Labs to be done CBC, BMP - You must have someone drive you home from your procedure. -kiln labourer policy is pt not be alone first evening Office phone number provided for questions or concerns. Torin: [facility] construction or leak gang laborer notified. Allergies As of Date: 05/11/2019 [...] ridge* FLUTICASONE PROPIONATE 50 MCG* Use 1 Cass in each nostril o* LOPERAMIDE 2 MG CAPSULE Take 2 mg by mouth once daily. CHOLECALCIFEROL (VITAMIN D3) * Take 5,000 Units by mouth onc* FERROUS SULFATE 325 MG (65 MG* Take 325 mg by mouth daily wi* ROSUVASTATIN 5 MG TABLET Take 5 mg by mouth once daily. Problem List As Of Date: 05/11/2019 (None) Encounter Status:Closed by TORIE HENRIQUEZ on 05/13/19 [facility] HISTORY PHYSICALon 9 HISTORY PHYSICAL HNO ID: [id number] Author: Espinoza Bass Service: ? Author Type: [...] HERNIA 12/04/2018 after bowel perforation done at [facility] Dr. Young FAMILY HISTORY Problem Relation Age [...] RELIEF) 50 mcg/actuation nasal spray Use 1 Cass in each nostril once daily. loperamide (IMODIUM) [...] Allergies Cardiac Testing Transesophageal echocardiogram performed in [place] in February 2019: Ejection fraction 65%, severe restriction of the aortic valve with moderate to severe aortic stenosis with a peak gradient of 52 mmHg, mean gradient of 28 mmHg. Transthoracic echocardiogram performed in November 2018 at [facility]: Ejection fraction 68%, peak and [...] 140/64 Pulse 48 Resp 16 Ht 6' 0" (1.83m) Wt 195 lb 12.8 oz (88.8kg) [...] heart catheterization and coronary angiogram performed at [place] which reflected mild coronary artery disease, but [...] - ECHO 2. Coronary artery disease involving port [place] coronary artery of [place] heart without angina pectoris - ICD9: 414.01, [...] in one month Espinoza Bass MD [facility] PROGRESSon 05-11-2019 PROGRESS HNO ID: [id number] Author: Wayne Rivers Service: ? Author Type: [...] further recommendations to follow. Wayne Rivers MD [facility] HOSPon 04-27-2019 HOSP Patient:Manav Shah rd K MRN: Height:6' 0"(1.829 m) Weight:196 lb (88.905 kg) Outpatient Medications [...] Sweeney LPN 04/25/2019 1:00 PM Signed I RYAN for pt to please return my call [...] LPN Progress Notes (JALYN AG CTVS): Elisha Yoav Cardenas 04/20/2019 2:05 PM Signed Mr. Shah is schedule 05/11/19 10:30am with Dr. Green and Dr. Rivers for TAVR consult. Appointment information given to Mr. Shah's sister Amalia Zamora. Also request sent to [facility] Interventional [facility]iology for Cardiac CTA, AND CTA A/P TAVR protocol. They will contact pt directly to schedule. ? La Love 04/20/2019 2:31 PM Signed Okay thanks! Elisha Cardenas ?You 25 minutes ago (2:05 PM) TAVR clinic appt 05/11 10:30am Routing Comment [facility] Oswaldo 04-20-2019 CNPN Telephone (AGVASACC) ELIAS SHAH ([id number]) 1940 M Date Time Provider Department 04/20/19 WAYNE RIVERS During your visit today, we recorded the following information about you: Elisha Cardenas 04/20/2019 2:05 PM Signed Mr. Shah is schedule 05/11/19 10:30am with Dr. Green and Dr. Rivers for TAVR consult. Appointment information given to Mr. Shah's sister Amalia Zamora. Also request sent to [facility] Interventional Radiology for Cardiac CTA, AND CTA A/P TAVR protocol. They will contact pt directly to schedule. ? [place] Love 04/20/2019 2:31 PM Signed Okay thanks! Elisha [...] ridge* FLUTICASONE PROPIONATE 50 MCG* Use 1 Cass in each nostril o* LOPERAMIDE 2 MG [...] Status:Closed by ELISHA CARDENAS on 04/20/19 [facility] ELIAS SHAH ([id number]) 1940 M Date Time Provider Department 04/19/19 HIGINIO BACON (KEE) JAZMYNE During your visit today, we recorded [...] follow CAD intervention. ? Higinio Bacon, ADRYAN.KEE Allergies As of Date: 04/19/2019 (No Known Allergies) Date Reviewed: Never Reviewed Primary Visit Diagnosis:Aortic valve stenosis, etiology of cardiac valve disease unspecified [I35.0] Other Visit Diagnosis:Coronary artery disease involving [place] gam[place] heart with angina pectoris, unspecified vessel or lesion type ([facility]) [I25.119] Order(s):LEFT HEART CATH,PERCUTANEOUS [[id number]] Order #: [id number]: 1 Prescriptions as of 04/19/2019 Sig: LACTOBACILLUS ACIDOPH-LACTASE* Take by mouth twice daily. ACETAMINOPHEN 500 MG CAPSULE Take 2 capsules by mouth twic* AMLODIPINE 5 MG TABLET Take 5 mg by mouth once daily. CARVEDILOL 25 MG TABLET Take 25 mg by mouth three ridge* FLUTICASONE PROPIONATE 50 MCG* Use 1 Cass in each nostril o* LOPERAMIDE 2 MG [...] by HIGINIO BACON CNP on 04/19/19 [facility] PROGRESSon 04-19-2019 PROGRESS HNO ID: [id number] Author: Higinio Bacon Service: ? Author Type: Nurse Practitioner Type: Progress Notes Filed: 04/19/2019 9:02 AM Note Text: MULTI DISCIPLINARY HIGH RISK PCI AND VALVULAR DISEASE CARDIAC TEAM ? Members present: Kali, Manuel Bone Cogan, King, Frederick, Ruhlin, Stocker, Mouck, Siva [...] follow CAD intervention. ? Higinio Bacon APRN.CNP [facility] CNOVon 04-13-2019 CNOV Office Visit (AGVASACC) ELIAS SHAH ([id number]) 1940 M Date Time Provider Department 04/13/19 2:00 PM WAYNE RIVERS [facility] During your visit today, we recorded the following information about you: Pulse Respiration Blood pressure Weight 55/minute 20/minute 158/70 88.9 kg Height 1.829 m Brook Sweeney LPN 04/13/2019 1:52 PM Signed CARDIAC REHAB 5 METER WALK TEST SERVICE DATE: 04/13/2019 SERVICE TIME: 1346 ASSESSMENT: SIGNATURE: Brook Sweeney LPN PATIENT NAME: Elias Shah DATE: April 13, 2019 TIME: 1:46 PM PAGER/CONTACT #: [id number] 1. 8 sec 2. 7.3 sec 3. [...] call us if you have any concerns/questions: [phone] Milad Paniagua APRN.[employer] Wayne Rivers MD 04/13/2019 3:22 PM Signed Elias Shah is an 78 year old man referred for evaluation of symptomatic severe aortic stenosis and for consideration for SAVR versus TAVR. He was admitted to [facility] in November with acute illness due to [...] had further evaluation by Dr. Ann of [place] cardiology. Left heart catheterization shows no significant [...] HERNIA 12/04/2018 after bowel perforation done at [facility] Dr. Young REVIEW OF SYSTEMS: GENERAL: Fever [...] Rivers MD . Referring Provider: GERALD ANN [[id number]] Allergies As of Date: 04/13/2019 (No Known [...] anemia [D62] Order(s):CREATININE BLD [SQCRET] Order #: [id number] FUTURE CTA CHEST (GATED) WO/W IVCON [0925425] Order #: [id number] FUTURE CTA ABD/PEL W IVCON [[id number]] Order #: [id number] FUTURE IRON + TIBC [SQIRON] Order #: [id number] FUTURE US CAROTID ARTERIES [facility] [[id number]] Order #: [id number] FUTURE FERRITIN BLD [SQFERR] Order #: [id number] FUTURE Prescriptions as of 04/13/2019 Sig: LACTOBACILLUS ACIDOPH-LACTASE* Take by mouth twice daily. ACETAMINOPHEN 500 MG CAPSULE Take 2 capsules by mouth twic* AMLODIPINE 5 MG TABLET Take 5 mg by mouth once daily. CARVEDILOL 25 MG TABLET Take 25 mg by mouth three ridge* FLUTICASONE PROPIONATE 50 MCG* Use 1 Cass in each nostril o* LOPERAMIDE 2 MG [...] call us if you have any concerns/questions: [phone] Milad Paniagua APRN.[facility] Visit Notes: >> Brook Sweeney Wed April 13, 2019 1:46 PM Status: Signed CARDIAC REHAB 5 METER WALK TEST SERVICE DATE: 04/13/2019 SERVICE TIME: 1346 ASSESSMENT: SIGNATURE: Brook Sweeney LPN PATIENT NAME: Elias Shah DATE: April 13, 2019 TIME: 1:46 PM PAGER/CONTACT #: [phone] 1. 8 sec 2. 7.3 sec 3. 7.2 sec Brook Sweeney LPN Level of Service: NEW PATIENT VISIT LEVEL 5 [60103] Letter Text Encounter Status:Closed by WAYNE RIVERS MD on 04/13/19 [facility] HISTORY PHYSICALon 9 HISTORY PHYSICAL HNO ID: [id number] Author: Wayne Rivers Service: ? Author Type: Physician Type: HANDP Filed: 04/13/2019 3:22 PM Note Text: Elias Shah is an 78 year old man referred for evaluation of symptomatic severe aortic stenosis and for consideration for SAVR versus TAVR. He was admitted to [facility] in November with acute illness due to [...] had further evaluation by Dr. Ann of [place] cardiology. Left heart catheterization shows no significant [...] HERNIA 12/04/2018 after bowel perforation done at [facility] Dr. Young REVIEW OF SYSTEMS: GENERAL: Fever [...] to follow. Wayne Rivers MD . [facility] Basic Metabolic Panelon 11-24 Anion gap molar conc 6 Normal [facility] Comment on above: Performed By: #### H EMDF, NH33, PT, CMP3, LIPA4, CK3, TROPN, LACT3, MDIFF, PCAL #### [address] [address] [place], [place] Calcium mass conc 8.0 mg/dL Low 8.4-10.4 [facility] Comment on above: Performed By: #### H EMDF, NH33, PT, CMP3, LIPA4, CK3, TROPN, LACT3, MDIFF, PCAL #### [address] [address] [place], [place] CO2 molar conc 26 mmol/L Normal 22-30 [facility] Comment on above: Performed By: #### H EMDF, NH33, PT, CMP3, LIPA4, CK3, TROPN, LACT3, MDIFF, PCAL #### [address] Glucose mass conc 98 mg/dL Normal 70-100 [facility] Comment on above: Performed By: #### H EMDF, NH33, PT, CMP3, LIPA4, CK3, TROPN, LACT3, MDIFF, PCAL #### [address] Urea nitrogen mass conc 19 mg/dL Normal 7-20 S [facility] Comment on above: Performed By: #### H EMDF, NH33, PT, CMP3, LIPA4, CK3, TROPN, LACT3, MDIFF, PCAL #### [address] [address] [place], [place] Creatinine mass conc 1.19 mg/dL Normal 0.52-1.25 [facility] Comment on above: Performed By: #### H EMDF, NH33, PT, CMP3, LIPA4, CK3, TROPN, LACT3, MDIFF, PCAL #### [facility] [address] [place] [address] GFR/1.73 sq M predicted among blacks MDRD vol rate/area (S/P/Bld) mL/min/{1.73_m2} Normal >60 [facility] Comment on above: Performed By: #### H EMDF, NH33, PT, CMP3, LIPA4, CK3, TROPN, LACT3, MDIFF, PCAL #### [address] [address] [address] [place], [place] GFR/1.73 sq M predicted among non-blacks MDRD vol rate/area (S/P/Bld) 58.7 mL/min/{1.73_m2} Normal >60 [facility] Comment on above: Result Comment: Sour ce- MDRD equation with creatinine calibration to IDMS(NKDEP) eGFR not recommended for drug dose adjustment Performed By: #### H EMDF, NH33, PT, CMP3, LIPA4, CK3, TROPN, LACT3, MDIFF, PCAL #### [address] [address] [address] [place], [place] Potassium molar conc 4.0 mmol/L Normal 3.5-5.1 [facility] Comment on above: Performed By: #### H EMDF, NH33, PT, CMP3, LIPA4, CK3, TROPN, LACT3, MDIFF, PCAL #### [address] [address] [place] [address] Chloride molar conc 107 mmol/L Normal 98-107 [facility] Comment on above: Performed By: #### H EMDF, NH33, PT, CMP3, LIPA4, CK3, TROPN, LACT3, MDIFF, PCAL #### [address] [address] [place] [address] Sodium molar conc 139 mmol/L Normal 135-145 [facility] Comment on above: Performed By: #### H EMDF, NH33, PT, CMP3, LIPA4, CK3, TROPN, LACT3, MDIFF, PCAL #### [address] Hemogram w/ Autodiffon 12-14 Abs Baso Cnt 0.0 10*3/uL Normal 0.0-0.2 [facility] Comment on above: Performed By: #### H EMDF, NH33, PT, CMP3, LIPA4, CK3, TROPN, LACT3, MDIFF, PCAL #### [address] Abs Neutrophile Cnt 3.6 10*3/uL Normal 1.8-7.0 [facility] Comment on above: Performed By: #### H EMDF, NH33, PT, CMP3, LIPA4, CK3, TROPN, LACT3, MDIFF, PCAL #### [address] Basophils/100 WBC (Bld) 0.4 % Normal 0.0-2.0 S [facility] Comment on above: Performed By: #### H EMDF, NH33, PT, CMP3, LIPA4, CK3, TROPN, LACT3, MDIFF, PCAL #### [address] Eosinophils #/vol (Bld) 0.1 10*3/uL Normal 0.0-0.5 [facility] Comment on above: Performed By: #### H EMDF, NH33, PT, CMP3, LIPA4, CK3, TROPN, LACT3, MDIFF, PCAL #### [address] Eosinophils/100 WBC (Bld) 1.3 % Normal 1.0-6.0 [facility] Comment on above: Performed By: #### H EMDF, NH33, PT, CMP3, LIPA4, CK3, TROPN, LACT3, MDIFF, PCAL #### [address] Erythrocyte distribution width Ratio (RBC) 15.2 % High 11.5-14.5 [facility] Comment on above: Performed By: #### H EMDF, NH33, PT, CMP3, LIPA4, CK3, TROPN, LACT3, MDIFF, PCAL #### [address] Granulocytes/100 WBC (Bld) 55.8 % Normal 40.0-80.0 [facility] Comment on above: Performed By: #### H EMDF, NH33, PT, CMP3, LIPA4, CK3, TROPN, LACT3, MDIFF, PCAL #### [address] Hematocrit Volume Fraction (Bld) 26.7 % Low 40.0-52.0 [facility] Comment on above: Performed By: #### H EMDF, NH33, PT, CMP3, LIPA4, CK3, TROPN, LACT3, MDIFF, PCAL #### [address] Hemoglobin mass conc (Bld) 8.8 g/dL Low 13.0-18.0 [facility] Comment on above: Performed By: #### H EMDF, NH33, PT, CMP3, LIPA4, CK3, TROPN, LACT3, MDIFF, PCAL #### [address] Lymphocytes #/vol (Bld) 1.9 10*3/uL Normal 1.0-4.3 [facility] Comment on above: Performed By: #### H EMDF, NH33, PT, CMP3, LIPA4, CK3, TROPN, LACT3, MDIFF, PCAL #### [address] Lymphocytes/100 WBC (Bld) 29.6 % Normal 20.0-40.0 [facility] Comment on above: Performed By: #### H EMDF, NH33, PT, CMP3, LIPA4, CK3, TROPN, LACT3, MDIFF, PCAL #### [address] MCH Entitic mass (RBC) 28.6 pg Normal 26.0-34.0 [facility] Comment on above: Performed By: #### H EMDF, NH33, PT, CMP3, LIPA4, CK3, TROPN, LACT3, MDIFF, PCAL #### [address] MCHC mass conc (RBC) 32.9 % Normal 32.0-36.0 [facility] Comment on above: Performed By: #### H EMDF, NH33, PT, CMP3, LIPA4, CK3, TROPN, LACT3, MDIFF, PCAL #### [address] MCV Entitic volume (RBC) 86.9 fL Normal 80.0-98.0 [facility] Comment on above: Performed By: #### H EMDF, NH33, PT, CMP3, LIPA4, CK3, TROPN, LACT3, MDIFF, PCAL #### [address] Monocytes #/vol (Bld) 0.8 10*3/uL Normal 0.0-0.8 [facility] Comment on above: Performed By: #### H EMDF, NH33, PT, CMP3, LIPA4, CK3, TROPN, LACT3, MDIFF, PCAL #### [address] Monocytes/100 WBC (Bld) 12.9 % High 2.0-10.0 [facility] Comment on above: Performed By: #### H EMDF, NH33, PT, CMP3, LIPA4, CK3, TROPN, LACT3, MDIFF, PCAL #### [address] Platelet mean volume Entitic volume (Bld) 8.7 fL Normal 7.4-10.4 [facility] Comment on above: Performed By: #### H EMDF, NH33, PT, CMP3, LIPA4, CK3, TROPN, LACT3, MDIFF, PCAL #### [address] [address] [address] [place], [place] Platelets #/vol (Bld) 211 10*3/uL Normal 140-440 [facility] Comment on above: Performed By: #### H EMDF, NH33, PT, CMP3, LIPA4, CK3, TROPN, LACT3, MDIFF, PCAL #### [address] RBC #/vol (Bld) 3.07 10*6/uL Low 4.40-5.90 [facility] Comment on above: Performed By: #### H EMDF, NH33, PT, CMP3, LIPA4, CK3, TROPN, LACT3, MDIFF, PCAL #### [address] WBC #/vol (Bld) 6.4 10*3/uL Normal 3.6-10.7 [facility] Comment on above: Performed By: #### H EMDF, NH33, PT, CMP3, LIPA4, CK3, TROPN, LACT3, MDIFF, PCAL #### [address] [address] [place], [place] Basic Metabolic Panelon 01-2 Anion gap molar conc 6 Normal [facility] Comment on above: Performed By: #### H EMDF, NH33, PT, CMP3, LIPA4, CK3, TROPN, LACT3, MDIFF, PCAL #### [address] [address] [place], [place] Calcium mass conc 8.0 mg/dL Low 8.4-10.4 [facility] Comment on above: Performed By: #### H EMDF, NH33, PT, CMP3, LIPA4, CK3, TROPN, LACT3, MDIFF, PCAL #### [address] CO2 molar conc 25 mmol/L Normal 22-30 [facility] Comment on above: Performed By: #### H EMDF, NH33, PT, CMP3, LIPA4, CK3, TROPN, LACT3, MDIFF, PCAL #### [address] [address] Glucose mass conc 100 mg/dL Normal 70-100 [facility] Comment on above: Performed By: #### H EMDF, NH33, PT, CMP3, LIPA4, CK3, TROPN, LACT3, MDIFF, PCAL #### [address] [address] Urea nitrogen mass conc 24 mg/dL High 7-20 S [facility] Comment on above: Performed By: #### H EMDF, NH33, PT, CMP3, LIPA4, CK3, TROPN, LACT3, MDIFF, PCAL #### [address] [address] Creatinine mass conc 1.35 mg/dL High 0.52-1.25 [facility] Comment on above: Performed By: #### H EMDF, NH33, PT, CMP3, LIPA4, CK3, TROPN, LACT3, MDIFF, PCAL #### [address] GFR/1.73 sq M predicted among blacks MDRD vol rate/area (S/P/Bld) mL/min/{1.73_m2} Normal >60 [facility] Comment on above: Performed By: #### H EMDF, NH33, PT, CMP3, LIPA4, CK3, TROPN, LACT3, MDIFF, PCAL #### [address] [address] GFR/1.73 sq M predicted among non-blacks MDRD vol rate/area (S/P/Bld) 50.8 mL/min/{1.73_m2} Normal >60 [facility] Comment on above: Result Comment: Sour ce- MDRD equation with creatinine calibration to IDMS(NKDEP) eGFR not recommended for drug dose adjustment Performed By: #### H EMDF, NH33, PT, CMP3, LIPA4, CK3, TROPN, LACT3, MDIFF, PCAL #### [address] Potassium molar conc 3.6 mmol/L Normal 3.5-5.1 [facility] Comment on above: Performed By: #### H EMDF, NH33, PT, CMP3, LIPA4, CK3, TROPN, LACT3, MDIFF, PCAL #### [address] Chloride molar conc 109 mmol/L High 98-107 [facility] Comment on above: Performed By: #### H EMDF, NH33, PT, CMP3, LIPA4, CK3, TROPN, LACT3, MDIFF, PCAL #### [address] Sodium molar conc 141 mmol/L Normal 135-145 [facility] Comment on above: Performed By: #### H EMDF, NH33, PT, CMP3, LIPA4, CK3, TROPN, LACT3, MDIFF, PCAL #### [address] [address] [place], [place] Hemogram w/ Autodiffon 12-13 Abs Baso Cnt 0.0 10*3/uL Normal 0.0-0.2 [facility] Comment on above: Performed By: #### H EMDF, NH33, PT, CMP3, LIPA4, CK3, TROPN, LACT3, MDIFF, PCAL #### [address] Abs Neutrophile Cnt 3.5 10*3/uL Normal 1.8-7.0 [facility] Comment on above: Performed By: #### H EMDF, NH33, PT, CMP3, LIPA4, CK3, TROPN, LACT3, MDIFF, PCAL #### [address] Basophils/100 WBC (Bld) 0.4 % Normal 0.0-2.0 [facility] Comment on above: Performed By: #### H EMDF, NH33, PT, CMP3, LIPA4, CK3, TROPN, LACT3, MDIFF, PCAL #### [address] Eosinophils #/vol (Bld) 0.1 10*3/uL Normal 0.0-0.5 [facility] Comment on above: Performed By: #### H EMDF, NH33, PT, CMP3, LIPA4, CK3, TROPN, LACT3, MDIFF, PCAL #### [address] Eosinophils/100 WBC (Bld) 2.1 % Normal 1.0-6.0 [facility] Comment on above: Performed By: #### H EMDF, NH33, PT, CMP3, LIPA4, CK3, TROPN, LACT3, MDIFF, PCAL #### [address] Erythrocyte distribution width Ratio (RBC) 14.8 % High 11.5-14.5 [facility] Comment on above: Performed By: #### H EMDF, NH33, PT, CMP3, LIPA4, CK3, TROPN, LACT3, MDIFF, PCAL #### [address] Granulocytes/100 WBC (Bld) 57.7 % Normal 40.0-80.0 [facility] Comment on above: Performed By: #### H EMDF, NH33, PT, CMP3, LIPA4, CK3, TROPN, LACT3, MDIFF, PCAL #### [address] Hematocrit Volume Fraction (Bld) 26.4 % Low 40.0-52.0 [facility] Comment on above: Performed By: #### H EMDF, NH33, PT, CMP3, LIPA4, CK3, TROPN, LACT3, MDIFF, PCAL #### [address] Hemoglobin mass conc (Bld) 8.6 g/dL Low 13.0-18.0 [facility] Comment on above: Performed By: #### H EMDF, NH33, PT, CMP3, LIPA4, CK3, TROPN, LACT3, MDIFF, PCAL #### [address] Lymphocytes #/vol (Bld) 1.7 10*3/uL Normal 1.0-4.3 [facility] Comment on above: Performed By: #### H EMDF, NH33, PT, CMP3, LIPA4, CK3, TROPN, LACT3, MDIFF, PCAL #### [address] Lymphocytes/100 WBC (Bld) 27.9 % Normal 20.0-40.0 [facility] Comment on above: Performed By: #### H EMDF, NH33, PT, CMP3, LIPA4, CK3, TROPN, LACT3, MDIFF, PCAL #### [address] MCH Entitic mass (RBC) 28.7 pg Normal 26.0-34.0 [facility] Comment on above: Performed By: #### H EMDF, NH33, PT, CMP3, LIPA4, CK3, TROPN, LACT3, MDIFF, PCAL #### [address] MCHC mass conc (RBC) 32.7 % Normal 32.0-36.0 [facility] Comment on above: Performed By: #### H EMDF, NH33, PT, CMP3, LIPA4, CK3, TROPN, LACT3, MDIFF, PCAL #### [address] MCV Entitic volume (RBC) 87.8 fL Normal 80.0-98.0 [facility] Comment on above: Performed By: #### H EMDF, NH33, PT, CMP3, LIPA4, CK3, TROPN, LACT3, MDIFF, PCAL #### [address] [address] Monocytes #/vol (Bld) 0.7 10*3/uL Normal 0.0-0.8 [facility] Comment on above: Performed By: #### H EMDF, NH33, PT, CMP3, LIPA4, CK3, TROPN, LACT3, MDIFF, PCAL #### [address] Monocytes/100 WBC (Bld) 11.9 % High 2.0-10.0 [facility] Comment on above: Performed By: #### H EMDF, NH33, PT, CMP3, LIPA4, CK3, TROPN, LACT3, MDIFF, PCAL #### [address] Platelet mean volume Entitic volume (Bld) 8.6 fL Normal 7.4-10.4 [facility] Comment on above: Performed By: #### H EMDF, NH33, PT, CMP3, LIPA4, CK3, TROPN, LACT3, MDIFF, PCAL #### [address] Platelets #/vol (Bld) 186 10*3/uL Normal 140-440 [facility] Comment on above: Performed By: #### H EMDF, NH33, PT, CMP3, LIPA4, CK3, TROPN, LACT3, MDIFF, PCAL #### [address] RBC #/vol (Bld) 3.01 10*6/uL Low 4.40-5.90 [facility] Comment on above: Performed By: #### H EMDF, NH33, PT, CMP3, LIPA4, CK3, TROPN, LACT3, MDIFF, PCAL #### [address] WBC #/vol (Bld) 6.0 10*3/uL Normal 3.6-10.7 [facility] Comment on above: Performed By: #### H EMDF, NH33, PT, CMP3, LIPA4, CK3, TROPN, LACT3, MDIFF, PCAL #### [address] [address] [address] [place], [place] Basic Metabolic Panelon -2 Anion gap molar conc 9 Normal [facility] Comment on above: Performed By: #### H EMDF, NH33, PT, CMP3, LIPA4, CK3, TROPN, LACT3, MDIFF, PCAL #### [address] [address] [place], [place] Calcium mass conc 8.2 mg/dL Low 8.4-10.4 [facility] Comment on above: Performed By: #### H EMDF, NH33, PT, CMP3, LIPA4, CK3, TROPN, LACT3, MDIFF, PCAL #### [address] [address] [place], [place] CO2 molar conc 28 mmol/L Normal 22-30 [facility] Comment on above: Performed By: #### H EMDF, NH33, PT, CMP3, LIPA4, CK3, TROPN, LACT3, MDIFF, PCAL #### [address] [address] [place] [place], [place] Creatinine mass conc 1.43 mg/dL High 0.52-1.25 [facility] Comment on above: Performed By: #### H EMDF, NH33, PT, CMP3, LIPA4, CK3, TROPN, LACT3, MDIFF, PCAL #### [address] [address] [place] [place], [place] GFR/1.73 sq M predicted among blacks MDRD vol rate/area (S/P/Bld) 57.6 mL/min/{1.73_m2} Normal >60 [facility] Comment on above: Performed By: #### H EMDF, NH33, PT, CMP3, LIPA4, CK3, TROPN, LACT3, MDIFF, PCAL #### [address] [address] [place] [place], [place] GFR/1.73 sq M predicted among non-blacks MDRD vol rate/area (S/P/Bld) 47.5 mL/min/{1.73_m2} Normal >60 [facility] Comment on above: Result Comment: Sour ce- MDRD equation with creatinine calibration to IDMS(NKDEP) eGFR not recommended for drug dose adjustment Performed By: #### H EMDF, NH33, PT, CMP3, LIPA4, CK3, TROPN, LACT3, MDIFF, PCAL #### [address] [address] [place], [place] Glucose mass conc 124 mg/dL High 70-100 [facility] Comment on above: Performed By: #### H EMDF, NH33, PT, CMP3, LIPA4, CK3, TROPN, LACT3, MDIFF, PCAL #### [address] [address] [place] [place], [place] Urea nitrogen mass conc 30 mg/dL High 7-20 [facility] Comment on above: Performed By: #### H EMDF, NH33, PT, CMP3, LIPA4, CK3, TROPN, LACT3, MDIFF, PCAL #### [address] [address] [place], [place] Chloride molar conc 107 mmol/L Normal 98-107 [facility] Comment on above: Performed By: #### H EMDF, NH33, PT, CMP3, LIPA4, CK3, TROPN, LACT3, MDIFF, PCAL #### [address] [address] [place] [place], [place] Potassium molar conc 3.4 mmol/L Low 3.5-5.1 [facility] Comment on above: Performed By: #### H EMDF, NH33, PT, CMP3, LIPA4, CK3, TROPN, LACT3, MDIFF, PCAL #### [address] [address] [place] [place], [place] Sodium molar conc 144 mmol/L Normal 135-145 [facility] Comment on above: Performed By: #### H EMDF, NH33, PT, CMP3, LIPA4, CK3, TROPN, LACT3, MDIFF, PCAL #### [address] [address] [place] [place], [place] Hemogram w/ Autodiffon 12-12 Abs Baso Cnt 0.0 10*3/uL Normal 0.0-0.2 [facility] Comment on above: Performed By: #### H EMDF, NH33, PT, CMP3, LIPA4, CK3, TROPN, LACT3, MDIFF, PCAL #### [address] Abs Neutrophile Cnt 4.5 10*3/uL Normal 1.8-7.0 [facility] Comment on above: Performed By: #### H EMDF, NH33, PT, CMP3, LIPA4, CK3, TROPN, LACT3, MDIFF, PCAL #### [address] Basophils/100 WBC (Bld) 0.3 % Normal 0.0-2.0 [facility] Comment on above: Performed By: #### H EMDF, NH33, PT, CMP3, LIPA4, CK3, TROPN, LACT3, MDIFF, PCAL #### [address] Eosinophils #/vol (Bld) 0.2 10*3/uL Normal 0.0-0.5 [facility] Comment on above: Performed By: #### H EMDF, NH33, PT, CMP3, LIPA4, CK3, TROPN, LACT3, MDIFF, PCAL #### [address] Eosinophils/100 WBC (Bld) 2.3 % Normal 1.0-6.0 [facility] Comment on above: Performed By: #### H EMDF, NH33, PT, CMP3, LIPA4, CK3, TROPN, LACT3, MDIFF, PCAL #### [address] Erythrocyte distribution width Ratio (RBC) 15.0 % High 11.5-14.5 [facility] Comment on above: Performed By: #### H EMDF, NH33, PT, CMP3, LIPA4, CK3, TROPN, LACT3, MDIFF, PCAL #### [address] Granulocytes/100 WBC (Bld) 62.5 % Normal 40.0-80.0 [facility] Comment on above: Performed By: #### H EMDF, NH33, PT, CMP3, LIPA4, CK3, TROPN, LACT3, MDIFF, PCAL #### [address] Hematocrit Volume Fraction (Bld) 29.8 % Low 40.0-52.0 [facility] Comment on above: Performed By: #### H EMDF, NH33, PT, CMP3, LIPA4, CK3, TROPN, LACT3, MDIFF, PCAL #### [address] Hemoglobin mass conc (Bld) 10.0 g/dL Low 13.0-18.0 [facility] Comment on above: Performed By: #### H EMDF, NH33, PT, CMP3, LIPA4, CK3, TROPN, LACT3, MDIFF, PCAL #### [address] Lymphocytes #/vol (Bld) 1.8 10*3/uL Normal 1.0-4.3 [facility] Comment on above: Performed By: #### H EMDF, NH33, PT, CMP3, LIPA4, CK3, TROPN, LACT3, MDIFF, PCAL #### [address] Lymphocytes/100 WBC (Bld) 25.1 % Normal 20.0-40.0 [facility] Comment on above: Performed By: #### H EMDF, NH33, PT, CMP3, LIPA4, CK3, TROPN, LACT3, MDIFF, PCAL #### [address] MCH Entitic mass (RBC) 29.0 pg Normal 26.0-34.0 [facility] Comment on above: Performed By: #### H EMDF, NH33, PT, CMP3, LIPA4, CK3, TROPN, LACT3, MDIFF, PCAL #### [address] MCHC mass conc (RBC) 33.4 % Normal 32.0-36.0 [facility] Comment on above: Performed By: #### H EMDF, NH33, PT, CMP3, LIPA4, CK3, TROPN, LACT3, MDIFF, PCAL #### [address] MCV Entitic volume (RBC) 86.8 fL Normal 80.0-98.0 [facility] Comment on above: Performed By: #### H EMDF, NH33, PT, CMP3, LIPA4, CK3, TROPN, LACT3, MDIFF, PCAL #### [address] Monocytes #/vol (Bld) 0.7 10*3/uL Normal 0.0-0.8 [facility] Comment on above: Performed By: #### H EMDF, NH33, PT, CMP3, LIPA4, CK3, TROPN, LACT3, MDIFF, PCAL #### [address] Monocytes/100 WBC (Bld) 9.8 % Normal 2.0-10.0 [facility] Comment on above: Performed By: #### H EMDF, NH33, PT, CMP3, LIPA4, CK3, TROPN, LACT3, MDIFF, PCAL #### [address] Platelet mean volume Entitic volume (Bld) 8.6 fL Normal 7.4-10.4 [facility] Comment on above: Performed By: #### H EMDF, NH33, PT, CMP3, LIPA4, CK3, TROPN, LACT3, MDIFF, PCAL #### [address] Platelets #/vol (Bld) 216 10*3/uL Normal 140-440 [facility] Comment on above: Performed By: #### H EMDF, NH33, PT, CMP3, LIPA4, CK3, TROPN, LACT3, MDIFF, PCAL #### [address] [address] [address] [place], [place] RBC #/vol (Bld) 3.43 10*6/uL Low 4.40-5.90 [facility] Comment on above: Performed By: #### H EMDF, NH33, PT, CMP3, LIPA4, CK3, TROPN, LACT3, MDIFF, PCAL #### [address] WBC #/vol (Bld) 7.2 10*3/uL Normal 3.6-10.7 [facility] Comment on above: Performed By: #### H EMDF, NH33, PT, CMP3, LIPA4, CK3, TROPN, LACT3, MDIFF, PCAL #### [address] Magnesiumon 12-12-2018 Magnesium mass conc 1.8 mg/dL Normal 1.6-2.3 [facility] Comment on above: Performed By: #### H EMDF, NH33, PT, CMP3, LIPA4, CK3, TROPN, LACT3, MDIFF, PCAL #### [address] [address] [place], [place] Basic Metabolic Panelon 11-23 Anion gap molar conc 6 Normal [facility] Comment on above: Performed By: #### H EMDF, NH33, PT, CMP3, LIPA4, CK3, TROPN, LACT3, MDIFF, PCAL #### [address] Calcium mass conc 8.1 mg/dL Low 8.4-10.4 [facility] Comment on above: Performed By: #### H EMDF, NH33, PT, CMP3, LIPA4, CK3, TROPN, LACT3, MDIFF, PCAL #### [address] [address] [place], [place] CO2 molar conc 26 mmol/L Normal 22-30 [facility] Comment on above: Performed By: #### H EMDF, NH33, PT, CMP3, LIPA4, CK3, TROPN, LACT3, MDIFF, PCAL #### [address] [address] [place] [address] Glucose mass conc 95 mg/dL Normal 70-100 [facility] Comment on above: Performed By: #### H EMDF, NH33, PT, CMP3, LIPA4, CK3, TROPN, LACT3, MDIFF, PCAL #### [address] [address] [place] [address] Urea nitrogen mass conc 33 mg/dL High 7-20 [facility] Comment on above: Performed By: #### H EMDF, NH33, PT, CMP3, LIPA4, CK3, TROPN, LACT3, MDIFF, PCAL #### [address] [address] [place] [address] Creatinine mass conc 1.52 mg/dL High 0.52-1.25 [facility] Comment on above: Performed By: #### H EMDF, NH33, PT, CMP3, LIPA4, CK3, TROPN, LACT3, MDIFF, PCAL #### [address] [address] [place] [address] GFR/1.73 sq M predicted among blacks MDRD vol rate/area (S/P/Bld) 53.7 mL/min/{1.73_m2} Normal >60 [facility] Comment on above: Performed By: #### H EMDF, NH33, PT, CMP3, LIPA4, CK3, TROPN, LACT3, MDIFF, PCAL #### [address] [address] [place] [address] GFR/1.73 sq M predicted among non-blacks MDRD vol rate/area (S/P/Bld) 44.3 mL/min/{1.73_m2} Normal >60 [facility] Comment on above: Result Comment: Sour ce- MDRD equation with creatinine calibration to IDMS(NKDEP) eGFR not recommended for drug dose adjustment Performed By: #### H EMDF, NH33, PT, CMP3, LIPA4, CK3, TROPN, LACT3, MDIFF, PCAL #### [address] Potassium molar conc 3.5 mmol/L Normal 3.5-5.1 [facility] Comment on above: Performed By: #### H EMDF, NH33, PT, CMP3, LIPA4, CK3, TROPN, LACT3, MDIFF, PCAL #### [address] Sodium molar conc 142 mmol/L Normal 135-145 [facility] Comment on above: Performed By: #### H EMDF, NH33, PT, CMP3, LIPA4, CK3, TROPN, LACT3, MDIFF, PCAL #### [address] Chloride molar conc 109 mmol/L High 98-107 [facility] Comment on above: Performed By: #### H EMDF, NH33, PT, CMP3, LIPA4, CK3, TROPN, LACT3, MDIFF, PCAL #### [address] Hemogram w/ Autodiffon 12-11 Abs Baso Cnt 0.0 10*3/uL Normal 0.0-0.2 [facility] Comment on above: Performed By: #### H EMDF, NH33, PT, CMP3, LIPA4, CK3, TROPN, LACT3, MDIFF, PCAL #### [address] Abs Neutrophile Cnt 4.5 10*3/uL Normal 1.8-7.0 [facility] Comment on above: Performed By: #### H EMDF, NH33, PT, CMP3, LIPA4, CK3, TROPN, LACT3, MDIFF, PCAL #### [address] Basophils/100 WBC (Bld) 0.3 % Normal 0.0-2.0 [facility] Comment on above: Performed By: #### H EMDF, NH33, PT, CMP3, LIPA4, CK3, TROPN, LACT3, MDIFF, PCAL #### [address] Eosinophils #/vol (Bld) 0.2 10*3/uL Normal 0.0-0.5 [facility] Comment on above: Performed By: #### H EMDF, NH33, PT, CMP3, LIPA4, CK3, TROPN, LACT3, MDIFF, PCAL #### [address] Eosinophils/100 WBC (Bld) 2.9 % Normal 1.0-6.0 [facility] Comment on above: Performed By: #### H EMDF, NH33, PT, CMP3, LIPA4, CK3, TROPN, LACT3, MDIFF, PCAL #### [address] Erythrocyte distribution width Ratio (RBC) 15.1 % High 11.5-14.5 [facility] Comment on above: Performed By: #### H EMDF, NH33, PT, CMP3, LIPA4, CK3, TROPN, LACT3, MDIFF, PCAL #### [address] Granulocytes/100 WBC (Bld) 60.8 % Normal 40.0-80.0 [facility] Comment on above: Performed By: #### H EMDF, NH33, PT, CMP3, LIPA4, CK3, TROPN, LACT3, MDIFF, PCAL #### [address] Hematocrit Volume Fraction (Bld) 27.2 % Low 40.0-52.0 [facility] Comment on above: Performed By: #### H EMDF, NH33, PT, CMP3, LIPA4, CK3, TROPN, LACT3, MDIFF, PCAL #### [address] Hemoglobin mass conc (Bld) 9.1 g/dL Low 13.0-18.0 [facility] Comment on above: Performed By: #### H EMDF, NH33, PT, CMP3, LIPA4, CK3, TROPN, LACT3, MDIFF, PCAL #### [address] Lymphocytes #/vol (Bld) 1.7 10*3/uL Normal 1.0-4.3 [facility] Comment on above: Performed By: #### H EMDF, NH33, PT, CMP3, LIPA4, CK3, TROPN, LACT3, MDIFF, PCAL #### [address] Lymphocytes/100 WBC (Bld) 22.8 % Normal 20.0-40.0 [facility] Comment on above: Performed By: #### H EMDF, NH33, PT, CMP3, LIPA4, CK3, TROPN, LACT3, MDIFF, PCAL #### [address] MCH Entitic mass (RBC) 28.9 pg Normal 26.0-34.0 [facility] Comment on above: Performed By: #### H EMDF, NH33, PT, CMP3, LIPA4, CK3, TROPN, LACT3, MDIFF, PCAL #### [address] MCHC mass conc (RBC) 33.3 % Normal 32.0-36.0 [facility] Comment on above: Performed By: #### H EMDF, NH33, PT, CMP3, LIPA4, CK3, TROPN, LACT3, MDIFF, PCAL #### [address] MCV Entitic volume (RBC) 86.8 fL Normal 80.0-98.0 [facility] Comment on above: Performed By: #### H EMDF, NH33, PT, CMP3, LIPA4, CK3, TROPN, LACT3, MDIFF, PCAL #### [address] Monocytes #/vol (Bld) 1.0 10*3/uL High 0.0-0.8 [facility] Comment on above: Performed By: #### H EMDF, NH33, PT, CMP3, LIPA4, CK3, TROPN, LACT3, MDIFF, PCAL #### [address] Monocytes/100 WBC (Bld) 13.2 % High 2.0-10.0 [facility] Comment on above: Performed By: #### H EMDF, NH33, PT, CMP3, LIPA4, CK3, TROPN, LACT3, MDIFF, PCAL #### [address] Platelet mean volume Entitic volume (Bld) 8.5 fL Normal 7.4-10.4 [facility] Comment on above: Performed By: #### H EMDF, NH33, PT, CMP3, LIPA4, CK3, TROPN, LACT3, MDIFF, PCAL #### [address] Platelets #/vol (Bld) 185 10*3/uL Normal 140-440 [facility] Comment on above: Performed By: #### H EMDF, NH33, PT, CMP3, LIPA4, CK3, TROPN, LACT3, MDIFF, PCAL #### [address] RBC #/vol (Bld) 3.14 10*6/uL Low 4.40-5.90 [facility] Comment on above: Performed By: #### H EMDF, NH33, PT, CMP3, LIPA4, CK3, TROPN, LACT3, MDIFF, PCAL #### [address] WBC #/vol (Bld) 7.4 10*3/uL Normal 3.6-10.7 [facility] Comment on above: Performed By: #### H EMDF, NH33, PT, CMP3, LIPA4, CK3, TROPN, LACT3, MDIFF, PCAL #### [address] [address] [address] [place], [place] Magnesiumon 12-11-2018 Magnesium mass conc 1.8 mg/dL Normal 1.6-2.3 [facility] Comment on above: Performed By: #### H EMDF, NH33, PT, CMP3, LIPA4, CK3, TROPN, LACT3, MDIFF, PCAL #### [address] [address] [address] [place], [place] Basic Metabolic Panelon 11-23 Anion gap molar conc 5 Normal [facility] Comment on above: Performed By: #### H EMDF, NH33, PT, CMP3, LIPA4, CK3, TROPN, LACT3, MDIFF, PCAL #### [address] [address] [place], [place] Calcium mass conc 8.3 mg/dL Low 8.4-10.4 [facility] Comment on above: Performed By: #### H EMDF, NH33, PT, CMP3, LIPA4, CK3, TROPN, LACT3, MDIFF, PCAL #### [address] [address] [place], [place] CO2 molar conc 29 mmol/L Normal 22-30 [facility] Comment on above: Performed By: #### H EMDF, NH33, PT, CMP3, LIPA4, CK3, TROPN, LACT3, MDIFF, PCAL #### [address] [address] [address] [place], [place] Glucose mass conc 111 mg/dL High 70-100 [facility] Comment on above: Performed By: #### H EMDF, NH33, PT, CMP3, LIPA4, CK3, TROPN, LACT3, MDIFF, PCAL #### [address] [address] [place], [place] Urea nitrogen mass conc 30 mg/dL High 7-20 [facility] Comment on above: Performed By: #### H EMDF, NH33, PT, CMP3, LIPA4, CK3, TROPN, LACT3, MDIFF, PCAL #### [address] [address] [address] [place], [place] Creatinine mass conc 1.40 mg/dL High 0.52-1.25 [facility] Comment on above: Performed By: #### H EMDF, NH33, PT, CMP3, LIPA4, CK3, TROPN, LACT3, MDIFF, PCAL #### [address] [address] [place], [place] GFR/1.73 sq M predicted among blacks MDRD vol rate/area (S/P/Bld) 59.0 mL/min/{1.73_m2} Normal >60 [facility] Comment on above: Performed By: #### H EMDF, NH33, PT, CMP3, LIPA4, CK3, TROPN, LACT3, MDIFF, PCAL #### [address] GFR/1.73 sq M predicted among non-blacks MDRD vol rate/area (S/P/Bld) 48.7 mL/min/{1.73_m2} Normal >60 [facility] Comment on above: Result Comment: Sour ce- MDRD equation with creatinine calibration to IDMS(NKDEP) eGFR not recommended for drug dose adjustment Performed By: #### H EMDF, NH33, PT, CMP3, LIPA4, CK3, TROPN, LACT3, MDIFF, PCAL #### [address] Chloride molar conc 107 mmol/L Normal 98-107 [facility] Comment on above: Performed By: #### H EMDF, NH33, PT, CMP3, LIPA4, CK3, TROPN, LACT3, MDIFF, PCAL #### [address] Potassium molar conc 3.5 mmol/L Normal 3.5-5.1 [facility] Comment on above: Performed By: #### H EMDF, NH33, PT, CMP3, LIPA4, CK3, TROPN, LACT3, MDIFF, PCAL #### [address] Sodium molar conc 141 mmol/L Normal 135-145 [facility] Comment on above: Performed By: #### H EMDF, NH33, PT, CMP3, LIPA4, CK3, TROPN, LACT3, MDIFF, PCAL #### [address] Hemogram w/ Autodiffon 12-10 Abs Baso Cnt 0.0 10*3/uL Normal 0.0-0.2 [facility] Comment on above: Performed By: #### H EMDF, NH33, PT, CMP3, LIPA4, CK3, TROPN, LACT3, MDIFF, PCAL #### [address] Abs Neutrophile Cnt 4.7 10*3/uL Normal 1.8-7.0 [facility] Comment on above: Performed By: #### H EMDF, NH33, PT, CMP3, LIPA4, CK3, TROPN, LACT3, MDIFF, PCAL #### [address] Basophils/100 WBC (Bld) 0.5 % Normal 0.0-2.0 S [facility] Comment on above: Performed By: #### H EMDF, NH33, PT, CMP3, LIPA4, CK3, TROPN, LACT3, MDIFF, PCAL #### [address] Eosinophils #/vol (Bld) 0.3 10*3/uL Normal 0.0-0.5 [facility] Comment on above: Performed By: #### H EMDF, NH33, PT, CMP3, LIPA4, CK3, TROPN, LACT3, MDIFF, PCAL #### [address] Eosinophils/100 WBC (Bld) 3.7 % Normal 1.0-6.0 [facility] Comment on above: Performed By: #### H EMDF, NH33, PT, CMP3, LIPA4, CK3, TROPN, LACT3, MDIFF, PCAL #### [address] Erythrocyte distribution width Ratio (RBC) 15.1 % High 11.5-14.5 [facility] Comment on above: Performed By: #### H EMDF, NH33, PT, CMP3, LIPA4, CK3, TROPN, LACT3, MDIFF, PCAL #### [address] Granulocytes/100 WBC (Bld) 57.9 % Normal 40.0-80.0 [facility] Comment on above: Performed By: #### H EMDF, NH33, PT, CMP3, LIPA4, CK3, TROPN, LACT3, MDIFF, PCAL #### [address] Hematocrit Volume Fraction (Bld) 31.4 % Low 40.0-52.0 [facility] Comment on above: Performed By: #### H EMDF, NH33, PT, CMP3, LIPA4, CK3, TROPN, LACT3, MDIFF, PCAL #### [address] Hemoglobin mass conc (Bld) 10.4 g/dL Low 13.0-18.0 [facility] Comment on above: Performed By: #### H EMDF, NH33, PT, CMP3, LIPA4, CK3, TROPN, LACT3, MDIFF, PCAL #### [address] Lymphocytes #/vol (Bld) 1.9 10*3/uL Normal 1.0-4.3 [facility] Comment on above: Performed By: #### H EMDF, NH33, PT, CMP3, LIPA4, CK3, TROPN, LACT3, MDIFF, PCAL #### [address] Lymphocytes/100 WBC (Bld) 23.1 % Normal 20.0-40.0 [facility] Comment on above: Performed By: #### H EMDF, NH33, PT, CMP3, LIPA4, CK3, TROPN, LACT3, MDIFF, PCAL #### [address] MCH Entitic mass (RBC) 28.7 pg Normal 26.0-34.0 [facility] Comment on above: Performed By: #### H EMDF, NH33, PT, CMP3, LIPA4, CK3, TROPN, LACT3, MDIFF, PCAL #### [address] MCHC mass conc (RBC) 33.0 % Normal 32.0-36.0 [facility] Comment on above: Performed By: #### H EMDF, NH33, PT, CMP3, LIPA4, CK3, TROPN, LACT3, MDIFF, PCAL #### [address] MCV Entitic volume (RBC) 86.9 fL Normal 80.0-98.0 [facility] Comment on above: Performed By: #### H EMDF, NH33, PT, CMP3, LIPA4, CK3, TROPN, LACT3, MDIFF, PCAL #### [address] Monocytes #/vol (Bld) 1.2 10*3/uL High 0.0-0.8 [facility] Comment on above: Performed By: #### H EMDF, NH33, PT, CMP3, LIPA4, CK3, TROPN, LACT3, MDIFF, PCAL #### [address] Monocytes/100 WBC (Bld) 14.8 % High 2.0-10.0 [facility] Comment on above: Performed By: #### H EMDF, NH33, PT, CMP3, LIPA4, CK3, TROPN, LACT3, MDIFF, PCAL #### [address] Platelet mean volume Entitic volume (Bld) 8.6 fL Normal 7.4-10.4 [facility] Comment on above: Performed By: #### H EMDF, NH33, PT, CMP3, LIPA4, CK3, TROPN, LACT3, MDIFF, PCAL #### [address] Platelets #/vol (Bld) 206 10*3/uL Normal 140-440 [facility] Comment on above: Performed By: #### H EMDF, NH33, PT, CMP3, LIPA4, CK3, TROPN, LACT3, MDIFF, PCAL #### [address] RBC #/vol (Bld) 3.61 10*6/uL Low 4.40-5.90 [facility] Comment on above: Performed By: #### H EMDF, NH33, PT, CMP3, LIPA4, CK3, TROPN, LACT3, MDIFF, PCAL #### [address] WBC #/vol (Bld) 8.1 10*3/uL Normal 3.6-10.7 [facility] Comment on above: Performed By: #### H EMDF, NH33, PT, CMP3, LIPA4, CK3, TROPN, LACT3, MDIFF, PCAL #### [address] Magnesiumon 12-10-2018 Magnesium mass conc 1.9 mg/dL Normal 1.6-2.3 [facility] Comment on above: Performed By: #### H EMDF, NH33, PT, CMP3, LIPA4, CK3, TROPN, LACT3, MDIFF, PCAL #### [address] Basic Metabolic Panelon 11-23 Calcium mass conc 8.0 mg/dL Low 8.4-10.4 [facility] Comment on above: Performed By: #### H EMDF, NH33, PT, CMP3, LIPA4, CK3, TROPN, LACT3, MDIFF, PCAL #### [facility] [address] [place], [place] Glucose mass conc 128 mg/dL High 70-100 [facility] Comment on above: Performed By: #### H EMDF, NH33, PT, CMP3, LIPA4, CK3, TROPN, LACT3, MDIFF, PCAL #### [facility] [address] [place], [place] Anion gap molar conc 5 Normal [facility] Comment on above: Performed By: #### H EMDF, NH33, PT, CMP3, LIPA4, CK3, TROPN, LACT3, MDIFF, PCAL #### [address] [address] [address] [address] [place], [place] CO2 molar conc 33 mmol/L High 22-30 [facility] Comment on above: Performed By: #### H EMDF, NH33, PT, CMP3, LIPA4, CK3, TROPN, LACT3, MDIFF, PCAL #### [address] [address] [address] [place], [place] Creatinine mass conc 1.43 mg/dL High 0.52-1.25 [facility] Comment on above: Performed By: #### H EMDF, NH33, PT, CMP3, LIPA4, CK3, TROPN, LACT3, MDIFF, PCAL #### [address] [address] [address] [place], [place] GFR/1.73 sq M predicted among blacks MDRD vol rate/area (S/P/Bld) 57.6 mL/min/{1.73_m2} Normal >60 [facility] Comment on above: Performed By: #### H EMDF, NH33, PT, CMP3, LIPA4, CK3, TROPN, LACT3, MDIFF, PCAL #### [address] [address] [address] [place], [place] GFR/1.73 sq M predicted among non-blacks MDRD vol rate/area (S/P/Bld) 47.5 mL/min/{1.73_m2} Normal >60 [facility] Comment on above: Result Comment: Sour ce- MDRD equation with creatinine calibration to IDMS(NKDEP) eGFR not recommended for drug dose adjustment Performed By: #### H EMDF, NH33, PT, CMP3, LIPA4, CK3, TROPN, LACT3, MDIFF, PCAL #### [address] [address] [place] [address] Urea nitrogen mass conc 37 mg/dL High 7-20 S [facility] Comment on above: Performed By: #### H EMDF, NH33, PT, CMP3, LIPA4, CK3, TROPN, LACT3, MDIFF, PCAL #### [address] [address] [place] [address] Potassium molar conc 3.3 mmol/L Low 3.5-5.1 [facility] Comment on above: Performed By: #### H EMDF, NH33, PT, CMP3, LIPA4, CK3, TROPN, LACT3, MDIFF, PCAL #### [address] [place] [address] Chloride molar conc 107 mmol/L Normal 98-107 [facility] Comment on above: Performed By: #### H EMDF, NH33, PT, CMP3, LIPA4, CK3, TROPN, LACT3, MDIFF, PCAL #### [address] [place] [address] Sodium molar conc 144 mmol/L Normal 135-145 [facility] Comment on above: Performed By: #### H EMDF, NH33, PT, CMP3, LIPA4, CK3, TROPN, LACT3, MDIFF, PCAL #### [address] [address] [place] [address] CR Abdomen APon 12-09-2018 CR Abdomen AP Patient Name: ELIAS SHAH Diagnostic Radiology Exam Date/Time 12/09/2018 08:27:17 EST Exam CR Abdomen AP Ordering Physician JIM MILLER Accession Number [id number] CPT4 Codes 96085 () Reason For Exam ileus Report Indication: Ileus. Supine views of the abdomen and pelvis are compared to the study dated 12/08/2018. Skin ilvia project over the midline of the lower [...] Transcribed Date and Time: 12/09/2018 11:38 Normal [facility] Hemogram w/ Autodiffon 12-09 Abs Baso Cnt 0.0 10*3/uL Normal 0.0-0.2 [facility] Comment on above: Performed By: #### H EMDF, NH33, PT, CMP3, LIPA4, CK3, TROPN, LACT3, MDIFF, PCAL #### [address] Abs Neutrophile Cnt 4.0 10*3/uL Normal 1.8-7.0 [facility] Comment on above: Performed By: #### H EMDF, NH33, PT, CMP3, LIPA4, CK3, TROPN, LACT3, MDIFF, PCAL #### [address] Basophils/100 WBC (Bld) 0.2 % Normal 0.0-2.0 [facility] Comment on above: Performed By: #### H EMDF, NH33, PT, CMP3, LIPA4, CK3, TROPN, LACT3, MDIFF, PCAL #### [address] Eosinophils #/vol (Bld) 0.2 10*3/uL Normal 0.0-0.5 [facility] Comment on above: Performed By: #### H EMDF, NH33, PT, CMP3, LIPA4, CK3, TROPN, LACT3, MDIFF, PCAL #### [address] Eosinophils/100 WBC (Bld) 2.9 % Normal 1.0-6.0 [facility] Comment on above: Performed By: #### H EMDF, NH33, PT, CMP3, LIPA4, CK3, TROPN, LACT3, MDIFF, PCAL #### [address] Erythrocyte distribution width Ratio (RBC) 15.4 % High 11.5-14.5 [facility] Comment on above: Performed By: #### H EMDF, NH33, PT, CMP3, LIPA4, CK3, TROPN, LACT3, MDIFF, PCAL #### [address] Granulocytes/100 WBC (Bld) 55.9 % Normal 40.0-80.0 [facility] Comment on above: Performed By: #### H EMDF, NH33, PT, CMP3, LIPA4, CK3, TROPN, LACT3, MDIFF, PCAL #### [address] Hematocrit Volume Fraction (Bld) 28.7 % Low 40.0-52.0 [facility] Comment on above: Performed By: #### H EMDF, NH33, PT, CMP3, LIPA4, CK3, TROPN, LACT3, MDIFF, PCAL #### [address] Hemoglobin mass conc (Bld) 9.4 g/dL Low 13.0-18.0 [facility] Comment on above: Performed By: #### H EMDF, NH33, PT, CMP3, LIPA4, CK3, TROPN, LACT3, MDIFF, PCAL #### [address] Lymphocytes #/vol (Bld) 1.6 10*3/uL Normal 1.0-4.3 [facility] Comment on above: Performed By: #### H EMDF, NH33, PT, CMP3, LIPA4, CK3, TROPN, LACT3, MDIFF, PCAL #### [address] Lymphocytes/100 WBC (Bld) 23.2 % Normal 20.0-40.0 [facility] Comment on above: Performed By: #### H EMDF, NH33, PT, CMP3, LIPA4, CK3, TROPN, LACT3, MDIFF, PCAL #### [address] MCH Entitic mass (RBC) 28.6 pg Normal 26.0-34.0 [facility] Comment on above: Performed By: #### H EMDF, NH33, PT, CMP3, LIPA4, CK3, TROPN, LACT3, MDIFF, PCAL #### [address] MCHC mass conc (RBC) 32.8 % Normal 32.0-36.0 [facility] Comment on above: Performed By: #### H EMDF, NH33, PT, CMP3, LIPA4, CK3, TROPN, LACT3, MDIFF, PCAL #### [address] MCV Entitic volume (RBC) 87.1 fL Normal 80.0-98.0 [facility] Comment on above: Performed By: #### H EMDF, NH33, PT, CMP3, LIPA4, CK3, TROPN, LACT3, MDIFF, PCAL #### [address] Monocytes #/vol (Bld) 1.3 10*3/uL High 0.0-0.8 [facility] Comment on above: Performed By: #### H EMDF, NH33, PT, CMP3, LIPA4, CK3, TROPN, LACT3, MDIFF, PCAL #### [address] Monocytes/100 WBC (Bld) 17.8 % High 2.0-10.0 [facility] Comment on above: Performed By: #### H EMDF, NH33, PT, CMP3, LIPA4, CK3, TROPN, LACT3, MDIFF, PCAL #### [address] Platelet mean volume Entitic volume (Bld) 8.8 fL Normal 7.4-10.4 [facility] Comment on above: Performed By: #### H EMDF, NH33, PT, CMP3, LIPA4, CK3, TROPN, LACT3, MDIFF, PCAL #### [address] [address] [place], [place] Platelets #/vol (Bld) 179 10*3/uL Normal 140-440 [facility] Comment on above: Performed By: #### H EMDF, NH33, PT, CMP3, LIPA4, CK3, TROPN, LACT3, MDIFF, PCAL #### [address] RBC #/vol (Bld) 3.30 10*6/uL Low 4.40-5.90 [facility] Comment on above: Performed By: #### H EMDF, NH33, PT, CMP3, LIPA4, CK3, TROPN, LACT3, MDIFF, PCAL #### [address] WBC #/vol (Bld) 7.1 10*3/uL Normal 3.6-10.7 [facility] Comment on above: Performed By: #### H EMDF, NH33, PT, CMP3, LIPA4, CK3, TROPN, LACT3, MDIFF, PCAL #### [address] Magnesiumon 12-09-2018 Magnesium mass conc 2.1 mg/dL Normal 1.6-2.3 [facility] Comment on above: Performed By: #### H EMDF, NH33, PT, CMP3, LIPA4, CK3, TROPN, LACT3, MDIFF, PCAL #### [address] [place], [place] Phosphoruson 12-09-2018 Phosphate mass conc 2.7 mg/dL Normal 2.5-4.5 [facility] Comment on above: Performed By: #### H EMDF, NH33, PT, CMP3, LIPA4, CK3, TROPN, LACT3, MDIFF, PCAL #### [address] Uric Acidon 12-09-2018 Urate mass conc 5.7 mg/dL Normal 2.5-8.5 [facility] Comment on above: Performed By: #### H EMDF, NH33, PT, CMP3, LIPA4, CK3, TROPN, LACT3, MDIFF, PCAL #### [address] Basic Metabolic Panelon 11-23 Calcium mass conc 8.5 mg/dL Normal 8.4-10.4 [facility] Comment on above: Performed By: #### H EMDF, NH33, PT, CMP3, LIPA4, CK3, TROPN, LACT3, MDIFF, PCAL #### [address] Glucose mass conc 83 mg/dL Normal 70-100 [facility] Comment on above: Performed By: #### H EMDF, NH33, PT, CMP3, LIPA4, CK3, TROPN, LACT3, MDIFF, PCAL #### [address] Urea nitrogen mass conc 53 mg/dL High 7-20 S [facility] Comment on above: Performed By: #### H EMDF, NH33, PT, CMP3, LIPA4, CK3, TROPN, LACT3, MDIFF, PCAL #### [address] Anion gap molar conc 6 Normal [facility] Comment on above: Performed By: #### H EMDF, NH33, PT, CMP3, LIPA4, CK3, TROPN, LACT3, MDIFF, PCAL #### [address] [address] [address] [place], [place] CO2 molar conc 34 mmol/L High 22-30 [facility] Comment on above: Performed By: #### H EMDF, NH33, PT, CMP3, LIPA4, CK3, TROPN, LACT3, MDIFF, PCAL #### [address] Creatinine mass conc 1.81 mg/dL High 0.52-1.25 [facility] Comment on above: Performed By: #### H EMDF, NH33, PT, CMP3, LIPA4, CK3, TROPN, LACT3, MDIFF, PCAL #### [address] GFR/1.73 sq M predicted among blacks MDRD vol rate/area (S/P/Bld) 43.9 mL/min/{1.73_m2} Normal >60 [facility] Comment on above: Performed By: #### H EMDF, NH33, PT, CMP3, LIPA4, CK3, TROPN, LACT3, MDIFF, PCAL #### [address] GFR/1.73 sq M predicted among non-blacks MDRD vol rate/area (S/P/Bld) 36.2 mL/min/{1.73_m2} Normal >60 [facility] Comment on above: Result Comment: Sour ce- MDRD equation with creatinine calibration to IDMS(NKDEP) eGFR not recommended for drug dose adjustment Performed By: #### H EMDF, NH33, PT, CMP3, LIPA4, CK3, TROPN, LACT3, MDIFF, PCAL #### [address] Potassium molar conc 3.3 mmol/L Low 3.5-5.1 [facility] Comment on above: Performed By: #### H EMDF, NH33, PT, CMP3, LIPA4, CK3, TROPN, LACT3, MDIFF, PCAL #### [address] [address] Chloride molar conc 105 mmol/L Normal 98-107 [facility] Comment on above: Performed By: #### H EMDF, NH33, PT, CMP3, LIPA4, CK3, TROPN, LACT3, MDIFF, PCAL #### [facility] [address] [place] [address] Sodium molar conc 145 mmol/L Normal 135-145 [facility] Comment on above: Performed By: #### H EMDF, NH33, PT, CMP3, LIPA4, CK3, TROPN, LACT3, MDIFF, PCAL #### [facility] [address] [place] [address] CR Abdomen APon 12-08-2018 CR Abdomen AP Patient Name: ELIAS SHAH Diagnostic Radiology Exam Date/Time 12/08/2018 09:33:11 EST Exam CR Abdomen AP Ordering Physician JIM MILLER Accession Number [id number] CPT4 Codes 69983 () Reason For Exam ileus Report Indication: Possible ileus. Supine view of the abdomen and pelvis timed 923 was obtained with no prior studies available for comparison. [place] overlie the midline of the lower abdomen. [...] Transcribed Date and Time: 12/08/2018 10:18 Normal [facility] CR Chest Portableon 12-08-19 CR Chest Portable Patient Name: ELIAS SHAH Diagnostic Radiology Exam Date/Time 12/08/2018 06:59:28 EST Exam CR Chest Portable Ordering Physician KEE GARNICA HEATHER Accession Number [id number] CPT4 Codes 14787 () Reason For Exam pna Report EXAM [...] Transcribed Date and Time: 12/08/2018 7:10 Normal [facility] Hemogram w/ Autodiffon 12-08 Erythrocyte distribution width Ratio (RBC) 15.0 % High 11.5-14.5 [facility] Comment on above: Performed By: #### H EMDF, NH33, PT, CMP3, LIPA4, CK3, TROPN, LACT3, MDIFF, PCAL #### [address] [address] Hematocrit Volume Fraction (Bld) 31.5 % Low 40.0-52.0 [facility] Comment on above: Performed By: #### H EMDF, NH33, PT, CMP3, LIPA4, CK3, TROPN, LACT3, MDIFF, PCAL #### [facility] [address] [place] [address] Hemoglobin mass conc (Bld) 10.3 g/dL Low 13.0-18.0 [facility] Comment on above: Performed By: #### H EMDF, NH33, PT, CMP3, LIPA4, CK3, TROPN, LACT3, MDIFF, PCAL #### [address] [address] [place], [place] MCH Entitic mass (RBC) 28.5 pg Normal 26.0-34.0 [facility] Comment on above: Performed By: #### H EMDF, NH33, PT, CMP3, LIPA4, CK3, TROPN, LACT3, MDIFF, PCAL #### [address] [address] [place], [place] MCHC mass conc (RBC) 32.6 % Normal 32.0-36.0 [facility] Comment on above: Performed By: #### H EMDF, NH33, PT, CMP3, LIPA4, CK3, TROPN, LACT3, MDIFF, PCAL #### [address] MCV Entitic volume (RBC) 87.3 fL Normal 80.0-98.0 [facility] Comment on above: Performed By: #### H EMDF, NH33, PT, CMP3, LIPA4, CK3, TROPN, LACT3, MDIFF, PCAL #### [address] Platelet mean volume Entitic volume (Bld) 8.7 fL Normal 7.4-10.4 [facility] Comment on above: Performed By: #### H EMDF, NH33, PT, CMP3, LIPA4, CK3, TROPN, LACT3, MDIFF, PCAL #### [address] Platelets #/vol (Bld) 202 10*3/uL Normal 140-440 [facility] Comment on above: Performed By: #### H EMDF, NH33, PT, CMP3, LIPA4, CK3, TROPN, LACT3, MDIFF, PCAL #### [address] RBC #/vol (Bld) 3.61 10*6/uL Low 4.40-5.90 [facility] Comment on above: Performed By: #### H EMDF, NH33, PT, CMP3, LIPA4, CK3, TROPN, LACT3, MDIFF, PCAL #### [address] WBC #/vol (Bld) 7.4 10*3/uL Normal 3.6-10.7 [facility] Comment on above: Performed By: #### H EMDF, NH33, PT, CMP3, LIPA4, CK3, TROPN, LACT3, MDIFF, PCAL #### [address] Magnesiumon 12-08-2018 Magnesium mass conc 2.4 mg/dL High 1.6-2.3 [facility] Comment on above: Performed By: #### H EMDF, NH33, PT, CMP3, LIPA4, CK3, TROPN, LACT3, MDIFF, PCAL #### [address] Manual Diffon 12-08-2018 Abs Neutrophile Cnt 5.5 10*3/uL Normal 2.2-8.2 [facility] Comment on above: Performed By: #### H EMDF, NH33, PT, CMP3, LIPA4, CK3, TROPN, LACT3, MDIFF, PCAL #### [address] Basophils/100 WBC (Bld) 0 % Normal 0-2 S [facility] Comment on above: Performed By: #### H EMDF, NH33, PT, CMP3, LIPA4, CK3, TROPN, LACT3, MDIFF, PCAL #### [address] Comment: SLIDE SCANNED Normal [facility] Comment on above: Performed By: #### H EMDF, NH33, PT, CMP3, LIPA4, CK3, TROPN, LACT3, MDIFF, PCAL #### [address] Eosinophils #/vol (Bld) 0.1 10*3/uL Normal 0.0-0.5 [facility] Comment on above: Performed By: #### H EMDF, NH33, PT, CMP3, LIPA4, CK3, TROPN, LACT3, MDIFF, PCAL #### [address] Eosinophils/100 WBC (Bld) 1 % Normal [facility] Comment on above: Performed By: #### H EMDF, NH33, PT, CMP3, LIPA4, CK3, TROPN, LACT3, MDIFF, PCAL #### [address] Lymphocytes #/vol (Bld) 0.8 10*3/uL Low 1.1-4.5 [facility] Comment on above: Performed By: #### H EMDF, NH33, PT, CMP3, LIPA4, CK3, TROPN, LACT3, MDIFF, PCAL #### [address] Lymphocytes/100 WBC (Bld) 11 % Normal [facility] Comment on above: Performed By: #### H EMDF, NH33, PT, CMP3, LIPA4, CK3, TROPN, LACT3, MDIFF, PCAL #### [address] Monocytes #/vol (Bld) 1.0 10*3/uL Normal 0.2-1.1 [facility] Comment on above: Performed By: #### H EMDF, NH33, PT, CMP3, LIPA4, CK3, TROPN, LACT3, MDIFF, PCAL #### [address] Monocytes/100 WBC (Bld) 14 % Normal [facility] Comment on above: Performed By: #### H EMDF, NH33, PT, CMP3, LIPA4, CK3, TROPN, LACT3, MDIFF, PCAL #### [address] Ovalocytes SLIGHT Normal [facility] Comment on above: Performed By: #### H EMDF, NH33, PT, CMP3, LIPA4, CK3, TROPN, LACT3, MDIFF, PCAL #### [address] [address] [address] [place], [place] Poikilocytosis SLIGHT Normal [facility] Comment on above: Performed By: #### H EMDF, NH33, PT, CMP3, LIPA4, CK3, TROPN, LACT3, MDIFF, PCAL #### [address] [address] [address] [place], [place] RBC morphology finding Nom (Bld) ABNORMAL Normal [facility] Comment on above: Performed By: #### H EMDF, NH33, PT, CMP3, LIPA4, CK3, TROPN, LACT3, MDIFF, PCAL #### [address] [place], [place] Seg Neutrophils 74 % Normal [facility] Comment on above: Performed By: #### H EMDF, NH33, PT, CMP3, LIPA4, CK3, TROPN, LACT3, MDIFF, PCAL #### [address] [place], [place] Abs Baso Cnt 0.0 10*3/uL Normal 0.0-0.2 [facility] Comment on above: Performed By: #### H EMDF, NH33, PT, CMP3, LIPA4, CK3, TROPN, LACT3, MDIFF, PCAL #### [address] [place], [place] Bands 0 % Normal 0-3 [facility] Comment on above: Performed By: #### H EMDF, NH33, PT, CMP3, LIPA4, CK3, TROPN, LACT3, MDIFF, PCAL #### [address] [place], [place] Cells counted 100 Normal [facility] Comment on above: Performed By: #### H EMDF, NH33, PT, CMP3, LIPA4, CK3, TROPN, LACT3, MDIFF, PCAL #### [address] [place], [place] Phosphoruson 12-08-2018 Phosphate mass conc 2.8 mg/dL Normal 2.5-4.5 [facility] Comment on above: Performed By: #### H EMDF, NH33, PT, CMP3, LIPA4, CK3, TROPN, LACT3, MDIFF, PCAL #### [address] [address] [place], [place] Basic Metabolic Panelon 11-23 Anion gap molar conc 7 Normal [facility] Comment on above: Performed By: #### H EMDF, NH33, PT, CMP3, LIPA4, CK3, TROPN, LACT3, MDIFF, PCAL #### [address] Calcium mass conc 8.6 mg/dL Normal 8.4-10.4 [facility] Comment on above: Performed By: #### H EMDF, NH33, PT, CMP3, LIPA4, CK3, TROPN, LACT3, MDIFF, PCAL #### [address] [address] [place], [place] CO2 molar conc 36 mmol/L High 22-30 [facility] Comment on above: Performed By: #### H EMDF, NH33, PT, CMP3, LIPA4, CK3, TROPN, LACT3, MDIFF, PCAL #### [address] [address] [place], [place] Glucose mass conc 89 mg/dL Normal 70-100 [facility] Comment on above: Performed By: #### H EMDF, NH33, PT, CMP3, LIPA4, CK3, TROPN, LACT3, MDIFF, PCAL #### [address] Urea nitrogen mass conc 75 mg/dL High 7-20 S [facility] Comment on above: Performed By: #### H EMDF, NH33, PT, CMP3, LIPA4, CK3, TROPN, LACT3, MDIFF, PCAL #### [address] [place], [place] Creatinine mass conc 2.75 mg/dL High 0.52-1.25 [facility] Comment on above: Performed By: #### H EMDF, NH33, PT, CMP3, LIPA4, CK3, TROPN, LACT3, MDIFF, PCAL #### [address] [place], [place] GFR/1.73 sq M predicted among blacks MDRD vol rate/area (S/P/Bld) 27.1 mL/min/{1.73_m2} Normal >60 [facility] Comment on above: Performed By: #### H EMDF, NH33, PT, CMP3, LIPA4, CK3, TROPN, LACT3, MDIFF, PCAL #### [address] [address] [place], [place] GFR/1.73 sq M predicted among non-blacks MDRD vol rate/area (S/P/Bld) 22.3 mL/min/{1.73_m2} Normal >60 [facility] Comment on above: Result Comment: Sour ce- MDRD equation with creatinine calibration to IDMS(NKDEP) eGFR not recommended for drug dose adjustment Performed By: #### H EMDF, NH33, PT, CMP3, LIPA4, CK3, TROPN, LACT3, MDIFF, PCAL #### [address] Potassium molar conc 3.3 mmol/L Low 3.5-5.1 [facility] Comment on above: Performed By: #### H EMDF, NH33, PT, CMP3, LIPA4, CK3, TROPN, LACT3, MDIFF, PCAL #### [address] [address] [place], [place] Sodium molar conc 142 mmol/L Normal 135-145 [facility] Comment on above: Performed By: #### H EMDF, NH33, PT, CMP3, LIPA4, CK3, TROPN, LACT3, MDIFF, PCAL #### [address] Chloride molar conc 100 mmol/L Normal 98-107 [facility] Comment on above: Performed By: #### H EMDF, NH33, PT, CMP3, LIPA4, CK3, TROPN, LACT3, MDIFF, PCAL #### [facility] [address] [place] [address] CR Chest Portableon 12-07-19 19 CR Chest Portable Patient Name: ELIAS SHAH Diagnostic Radiology Exam Date/Time 12/07/2018 07:13:20 EST Exam CR Chest Portable Ordering Physician KEE GARNICA HEATHER Accession Number [id number] CPT4 Codes 57660 () Reason For Exam pna Report Portable [...] Transcribed Date and Time: 12/07/2018 7:47 Normal [facility] CULTURE URINEon 12-07-2018 CULTURE URINE CULTURE URINE --> Status: F No growth (<1,000 CFU/ml). Normal [facility] Comment on above: Order Comment: Speci men Source Comment:Urine, straight catheter Performed By: #### H EMDF, NH33, PT, CMP3, LIPA4, CK3, TROPN, LACT3, MDIFF, PCAL #### [facility] [address] [place] [address] Hemogram w/ Autodiffon 12-07 Abs Baso Cnt 0.0 10*3/uL Normal 0.0-0.2 [facility] Comment on above: Performed By: #### H EMDF, NH33, PT, CMP3, LIPA4, CK3, TROPN, LACT3, MDIFF, PCAL #### [address] Abs Neutrophile Cnt 5.0 10*3/uL Normal 1.8-7.0 [facility] Comment on above: Performed By: #### H EMDF, NH33, PT, CMP3, LIPA4, CK3, TROPN, LACT3, MDIFF, PCAL #### [address] Basophils/100 WBC (Bld) 0.4 % Normal 0.0-2.0 [facility] Comment on above: Performed By: #### H EMDF, NH33, PT, CMP3, LIPA4, CK3, TROPN, LACT3, MDIFF, PCAL #### [address] Eosinophils #/vol (Bld) 0.0 10*3/uL Normal 0.0-0.5 [facility] Comment on above: Performed By: #### H EMDF, NH33, PT, CMP3, LIPA4, CK3, TROPN, LACT3, MDIFF, PCAL #### [address] Eosinophils/100 WBC (Bld) 0.3 % Low 1.0-6.0 [facility] Comment on above: Performed By: #### H EMDF, NH33, PT, CMP3, LIPA4, CK3, TROPN, LACT3, MDIFF, PCAL #### [address] Erythrocyte distribution width Ratio (RBC) 15.4 % High 11.5-14.5 [facility] Comment on above: Performed By: #### H EMDF, NH33, PT, CMP3, LIPA4, CK3, TROPN, LACT3, MDIFF, PCAL #### [address] Granulocytes/100 WBC (Bld) 63.5 % Normal 40.0-80.0 [facility] Comment on above: Performed By: #### H EMDF, NH33, PT, CMP3, LIPA4, CK3, TROPN, LACT3, MDIFF, PCAL #### [address] Hematocrit Volume Fraction (Bld) 32.4 % Low 40.0-52.0 [facility] Comment on above: Performed By: #### H EMDF, NH33, PT, CMP3, LIPA4, CK3, TROPN, LACT3, MDIFF, PCAL #### [address] Hemoglobin mass conc (Bld) 10.7 g/dL Low 13.0-18.0 [facility] Comment on above: Performed By: #### H EMDF, NH33, PT, CMP3, LIPA4, CK3, TROPN, LACT3, MDIFF, PCAL #### [address] Lymphocytes #/vol (Bld) 1.4 10*3/uL Normal 1.0-4.3 [facility] Comment on above: Performed By: #### H EMDF, NH33, PT, CMP3, LIPA4, CK3, TROPN, LACT3, MDIFF, PCAL #### [address] Lymphocytes/100 WBC (Bld) 18.5 % Low 20.0-40.0 [facility] Comment on above: Performed By: #### H EMDF, NH33, PT, CMP3, LIPA4, CK3, TROPN, LACT3, MDIFF, PCAL #### [address] MCH Entitic mass (RBC) 28.7 pg Normal 26.0-34.0 [facility] Comment on above: Performed By: #### H EMDF, NH33, PT, CMP3, LIPA4, CK3, TROPN, LACT3, MDIFF, PCAL #### [address] MCHC mass conc (RBC) 33.0 % Normal 32.0-36.0 [facility] Comment on above: Performed By: #### H EMDF, NH33, PT, CMP3, LIPA4, CK3, TROPN, LACT3, MDIFF, PCAL #### [address] MCV Entitic volume (RBC) 87.2 fL Normal 80.0-98.0 [facility] Comment on above: Performed By: #### H EMDF, NH33, PT, CMP3, LIPA4, CK3, TROPN, LACT3, MDIFF, PCAL #### [address] Monocytes #/vol (Bld) 1.4 10*3/uL High 0.0-0.8 [facility] Comment on above: Performed By: #### H EMDF, NH33, PT, CMP3, LIPA4, CK3, TROPN, LACT3, MDIFF, PCAL #### [address] Monocytes/100 WBC (Bld) 17.3 % High 2.0-10.0 [facility] Comment on above: Performed By: #### H EMDF, NH33, PT, CMP3, LIPA4, CK3, TROPN, LACT3, MDIFF, PCAL #### [address] Platelet mean volume Entitic volume (Bld) 8.5 fL Normal 7.4-10.4 [facility] Comment on above: Performed By: #### H EMDF, NH33, PT, CMP3, LIPA4, CK3, TROPN, LACT3, MDIFF, PCAL #### [address] Platelets #/vol (Bld) 217 10*3/uL Normal 140-440 [facility] Comment on above: Performed By: #### H EMDF, NH33, PT, CMP3, LIPA4, CK3, TROPN, LACT3, MDIFF, PCAL #### [address] RBC #/vol (Bld) 3.72 10*6/uL Low 4.40-5.90 [facility] Comment on above: Performed By: #### H EMDF, NH33, PT, CMP3, LIPA4, CK3, TROPN, LACT3, MDIFF, PCAL #### [address] [address] [place], [place] WBC #/vol (Bld) 7.8 10*3/uL Normal 3.6-10.7 [facility] Comment on above: Performed By: #### H EMDF, NH33, PT, CMP3, LIPA4, CK3, TROPN, LACT3, MDIFF, PCAL #### [address] Magnesiumon 12-07-2018 Magnesium mass conc 2.9 mg/dL High 1.6-2.3 [facility] Comment on above: Performed By: #### H EMDF, NH33, PT, CMP3, LIPA4, CK3, TROPN, LACT3, MDIFF, PCAL #### [address] [address] [place], [place] Phosphoruson 12-07-2018 Phosphate mass conc 3.2 mg/dL Normal 2.5-4.5 [facility] Comment on above: Performed By: #### H EMDF, NH33, PT, CMP3, LIPA4, CK3, TROPN, LACT3, MDIFF, PCAL #### [address] Urinalysis,Macroon 9 Appearance Nom (U) cloudy Normal Clear [facility] Comment on above: Performed By: #### H EMDF, NH33, PT, CMP3, LIPA4, CK3, TROPN, LACT3, MDIFF, PCAL #### [address] Bilirubin,Ur Negative Normal Negative [facility] Comment on above: Performed By: #### H EMDF, NH33, PT, CMP3, LIPA4, CK3, TROPN, LACT3, MDIFF, PCAL #### [address] [address] [address] [place], [place] Color Nom (U) red Normal Lt. Yellow [facility] Comment on above: Performed By: #### H EMDF, NH33, PT, CMP3, LIPA4, CK3, TROPN, LACT3, MDIFF, PCAL #### [address] [address] [address] [place], [place] Glucose Ql (U) 100 mg/dL Normal Negative [facility] Comment on above: Performed By: #### H EMDF, NH33, PT, CMP3, LIPA4, CK3, TROPN, LACT3, MDIFF, PCAL #### [address] [address] [place], [place] Ketone,Urine 3 + mg/dL Normal Negative [facility] Comment on above: Performed By: #### H EMDF, NH33, PT, CMP3, LIPA4, CK3, TROPN, LACT3, MDIFF, PCAL #### [address] [address] [place], [place] Nitrite Ql (U) Negative Normal Negative [facility] Comment on above: Performed By: #### H EMDF, NH33, PT, CMP3, LIPA4, CK3, TROPN, LACT3, MDIFF, PCAL #### [address] [address] [address] [place], [place] Occult Blood,Ur 250 {RBC}/uL Normal Negative [facility] Comment on above: Performed By: #### H EMDF, NH33, PT, CMP3, LIPA4, CK3, TROPN, LACT3, MDIFF, PCAL #### [address] [address] [address] [place], [place] pH (U) 8.0 Normal 5.0-8.0 [facility] Comment on above: Performed By: #### H EMDF, NH33, PT, CMP3, LIPA4, CK3, TROPN, LACT3, MDIFF, PCAL #### [address] [address] [place], [place] Protein mass conc (U) 75 mg/dL Normal Negative [facility] Comment on above: Performed By: #### H EMDF, NH33, PT, CMP3, LIPA4, CK3, TROPN, LACT3, MDIFF, PCAL #### [address] Specific [place],Urine 1.010 Normal 1.005-1.030 [facility] Comment on above: Performed By: #### H EMDF, NH33, PT, CMP3, LIPA4, CK3, TROPN, LACT3, MDIFF, PCAL #### [address] Urobilinogen Qn (U) NORM Normal 0-1 [facility] Comment on above: Performed By: #### H EMDF, NH33, PT, CMP3, LIPA4, CK3, TROPN, LACT3, MDIFF, PCAL #### [address] WBC #/vol (Bld) 1 + Normal Negative [facility] Comment on above: Performed By: #### H EMDF, NH33, PT, CMP3, LIPA4, CK3, TROPN, LACT3, MDIFF, PCAL #### [address] Urinalysis,Microscopicon Bacteria LM.HPF #/area (Urine sed) Moderate (6-50) Normal Negative [facility] Comment on above: Performed By: #### H EMDF, NH33, PT, CMP3, LIPA4, CK3, TROPN, LACT3, MDIFF, PCAL #### [address] Epithelial cells LM.HPF #/area (Urine sed) 0 - 2 Normal 3-5 [facility] Comment on above: Performed By: #### H EMDF, NH33, PT, CMP3, LIPA4, CK3, TROPN, LACT3, MDIFF, PCAL #### [address] RBC LM.HPF #/area (Urine sed) 51 - 100 Normal 0-2 [facility] Comment on above: Performed By: #### H EMDF, NH33, PT, CMP3, LIPA4, CK3, TROPN, LACT3, MDIFF, PCAL #### [address] [address] [place], [place] Volume,Urine 8-12 ml Normal [facility] Comment on above: Performed By: #### H EMDF, NH33, PT, CMP3, LIPA4, CK3, TROPN, LACT3, MDIFF, PCAL #### [address] WBC LM.HPF #/area (Urine sed) 3 - 5 Normal 0-5 [facility] Comment on above: Performed By: #### H EMDF, NH33, PT, CMP3, LIPA4, CK3, TROPN, LACT3, MDIFF, PCAL #### [address] [address] [place], [place] Basic Metabolic Panelon 11-23 Anion gap molar conc 6 Normal [facility] Comment on above: Performed By: #### H EMDF, NH33, PT, CMP3, LIPA4, CK3, TROPN, LACT3, MDIFF, PCAL #### [address] [address] [place], [place] Calcium mass conc 8.6 mg/dL Normal 8.4-10.4 [facility] Comment on above: Performed By: #### H EMDF, NH33, PT, CMP3, LIPA4, CK3, TROPN, LACT3, MDIFF, PCAL #### [address] CO2 molar conc 37 mmol/L High 22-30 [facility] Comment on above: Performed By: #### H EMDF, NH33, PT, CMP3, LIPA4, CK3, TROPN, LACT3, MDIFF, PCAL #### [address] [address] [place], [place] Glucose mass conc 97 mg/dL Normal 70-100 [facility] Comment on above: Performed By: #### H EMDF, NH33, PT, CMP3, LIPA4, CK3, TROPN, LACT3, MDIFF, PCAL #### [address] Urea nitrogen mass conc 77 mg/dL High 7-20 [facility] Comment on above: Performed By: #### H EMDF, NH33, PT, CMP3, LIPA4, CK3, TROPN, LACT3, MDIFF, PCAL #### [address] [address] [place], [place] Creatinine mass conc 3.07 mg/dL High 0.52-1.25 [facility] Comment on above: Performed By: #### H EMDF, NH33, PT, CMP3, LIPA4, CK3, TROPN, LACT3, MDIFF, PCAL #### [address] GFR/1.73 sq M predicted among blacks MDRD vol rate/area (S/P/Bld) 23.8 mL/min/{1.73_m2} Normal >60 [facility] Comment on above: Performed By: #### H EMDF, NH33, PT, CMP3, LIPA4, CK3, TROPN, LACT3, MDIFF, PCAL #### [address] GFR/1.73 sq M predicted among non-blacks MDRD vol rate/area (S/P/Bld) 19.7 mL/min/{1.73_m2} Normal >60 [facility] Comment on above: Result Comment: Sour ce- MDRD equation with creatinine calibration to IDMS(NKDEP) eGFR not recommended for drug dose adjustment Performed By: #### H EMDF, NH33, PT, CMP3, LIPA4, CK3, TROPN, LACT3, MDIFF, PCAL #### [address] Potassium molar conc 3.4 mmol/L Low 3.5-5.1 [facility] Comment on above: Performed By: #### H EMDF, NH33, PT, CMP3, LIPA4, CK3, TROPN, LACT3, MDIFF, PCAL #### [address] [address] [address] [place], [place] Sodium molar conc 142 mmol/L Normal 135-145 [facility] Comment on above: Performed By: #### H EMDF, NH33, PT, CMP3, LIPA4, CK3, TROPN, LACT3, MDIFF, PCAL #### [address] [address] [place], [place] Chloride molar conc 99 mmol/L Normal 98-107 [facility] Comment on above: Performed By: #### H EMDF, NH33, PT, CMP3, LIPA4, CK3, TROPN, LACT3, MDIFF, PCAL #### [address] [address] [address] [place], [place] Calcium mass conc 8.7 mg/dL Normal 8.4-10.4 [facility] Comment on above: Performed By: #### H EMDF, NH33, PT, CMP3, LIPA4, CK3, TROPN, LACT3, MDIFF, PCAL #### [address] [address] [place] [place], [place] Glucose mass conc 106 mg/dL High 70-100 [facility] Comment on above: Performed By: #### H EMDF, NH33, PT, CMP3, LIPA4, CK3, TROPN, LACT3, MDIFF, PCAL #### [address] [address] [place] [place], [place] Anion gap molar conc 7 Normal [facility] Comment on above: Performed By: #### H EMDF, NH33, PT, CMP3, LIPA4, CK3, TROPN, LACT3, MDIFF, PCAL #### [address] [address] [place] [place], [place] CO2 molar conc 36 mmol/L High 22-30 [facility] Comment on above: Performed By: #### H EMDF, NH33, PT, CMP3, LIPA4, CK3, TROPN, LACT3, MDIFF, PCAL #### [address] [address] [place] [address] Creatinine mass conc 3.58 mg/dL High 0.52-1.25 [facility] Comment on above: Performed By: #### H EMDF, NH33, PT, CMP3, LIPA4, CK3, TROPN, LACT3, MDIFF, PCAL #### [address] [address] GFR/1.73 sq M predicted among blacks MDRD vol rate/area (S/P/Bld) 20.0 mL/min/{1.73_m2} Normal >60 [facility] Comment on above: Performed By: #### H EMDF, NH33, PT, CMP3, LIPA4, CK3, TROPN, LACT3, MDIFF, PCAL #### [address] [address] [place] [address] GFR/1.73 sq M predicted among non-blacks MDRD vol rate/area (S/P/Bld) 16.5 mL/min/{1.73_m2} Normal >60 [facility] Comment on above: Result Comment: Sour ce- MDRD equation with creatinine calibration to IDMS(NKDEP) eGFR not recommended for drug dose adjustment Performed By: #### H EMDF, NH33, PT, CMP3, LIPA4, CK3, TROPN, LACT3, MDIFF, PCAL #### [address] [address] Urea nitrogen mass conc 79 mg/dL High 7-20 S [facility] Comment on above: Performed By: #### H EMDF, NH33, PT, CMP3, LIPA4, CK3, TROPN, LACT3, MDIFF, PCAL #### [address] [address] [place] [address] Chloride molar conc 97 mmol/L Low 98-107 [facility] Comment on above: Performed By: #### H EMDF, NH33, PT, CMP3, LIPA4, CK3, TROPN, LACT3, MDIFF, PCAL #### [address] [address] Potassium molar conc 3.5 mmol/L Normal 3.5-5.1 [facility] Comment on above: Performed By: #### H EMDF, NH33, PT, CMP3, LIPA4, CK3, TROPN, LACT3, MDIFF, PCAL #### [address] [address] [place], [place] Sodium molar conc 140 mmol/L Normal 135-145 [facility] Comment on above: Performed By: #### H EMDF, NH33, PT, CMP3, LIPA4, CK3, TROPN, LACT3, MDIFF, PCAL #### [address] [address] [place], [place] Calcium mass conc 8.7 mg/dL Normal 8.4-10.4 [facility] Comment on above: Performed By: #### H EMDF, NH33, PT, CMP3, LIPA4, CK3, TROPN, LACT3, MDIFF, PCAL #### [address] [address] [place], [place] Glucose mass conc 106 mg/dL High 70-100 [facility] Comment on above: Performed By: #### H EMDF, NH33, PT, CMP3, LIPA4, CK3, TROPN, LACT3, MDIFF, PCAL #### [address] [address] [place], [place] Anion gap molar conc 9 Normal [facility] Comment on above: Performed By: #### H EMDF, NH33, PT, CMP3, LIPA4, CK3, TROPN, LACT3, MDIFF, PCAL #### [address] [address] [place], [place] CO2 molar conc 35 mmol/L High 22-30 [facility] Comment on above: Performed By: #### H EMDF, NH33, PT, CMP3, LIPA4, CK3, TROPN, LACT3, MDIFF, PCAL #### [address] [address] [place], [place] Creatinine mass conc 3.92 mg/dL High 0.52-1.25 [facility] Comment on above: Performed By: #### H EMDF, NH33, PT, CMP3, LIPA4, CK3, TROPN, LACT3, MDIFF, PCAL #### [address] [address] [place] [address] GFR/1.73 sq M predicted among blacks MDRD vol rate/area (S/P/Bld) 18.0 mL/min/{1.73_m2} Normal >60 [facility] Comment on above: Performed By: #### H EMDF, NH33, PT, CMP3, LIPA4, CK3, TROPN, LACT3, MDIFF, PCAL #### [address] [address] [place] [address] GFR/1.73 sq M predicted among non-blacks MDRD vol rate/area (S/P/Bld) 14.8 mL/min/{1.73_m2} Normal >60 [facility] Comment on above: Result Comment: Sour ce- MDRD equation with creatinine calibration to IDMS(NKDEP) eGFR not recommended for drug dose adjustment Performed By: #### H EMDF, NH33, PT, CMP3, LIPA4, CK3, TROPN, LACT3, MDIFF, PCAL #### [address] [address] [place], [place] Urea nitrogen mass conc 82 mg/dL High 7-20 S [facility] Comment on above: Performed By: #### H EMDF, NH33, PT, CMP3, LIPA4, CK3, TROPN, LACT3, MDIFF, PCAL #### [address] [address] [place], [place] Chloride molar conc 96 mmol/L Low 98-107 [facility] Comment on above: Performed By: #### H EMDF, NH33, PT, CMP3, LIPA4, CK3, TROPN, LACT3, MDIFF, PCAL #### [address] Potassium molar conc 4.1 mmol/L Normal 3.5-5.1 [facility] Comment on above: Performed By: #### H EMDF, NH33, PT, CMP3, LIPA4, CK3, TROPN, LACT3, MDIFF, PCAL #### [address], [place] Sodium molar conc 140 mmol/L Normal 135-145 [facility] Comment on above: Performed By: #### H EMDF, NH33, PT, CMP3, LIPA4, CK3, TROPN, LACT3, MDIFF, PCAL #### [address] [address] [place], [place] Calcium mass conc 9.1 mg/dL Normal 8.4-10.4 [facility] Comment on above: Performed By: #### H EMDF, NH33, PT, CMP3, LIPA4, CK3, TROPN, LACT3, MDIFF, PCAL #### [address] [address] [place] [place], [place] Glucose mass conc 123 mg/dL High 70-100 [facility] Comment on above: Performed By: #### H EMDF, NH33, PT, CMP3, LIPA4, CK3, TROPN, LACT3, MDIFF, PCAL #### [address] [address] [place], [place] Urea nitrogen mass conc 83 mg/dL High 7-20 S [facility] Comment on above: Performed By: #### H EMDF, NH33, PT, CMP3, LIPA4, CK3, TROPN, LACT3, MDIFF, PCAL #### [address] [address] [place], [place] Anion gap molar conc 11 Normal [facility] Comment on above: Performed By: #### H EMDF, NH33, PT, CMP3, LIPA4, CK3, TROPN, LACT3, MDIFF, PCAL #### [address] [address] [address] [place], [place] CO2 molar conc 33 mmol/L High 22-30 [facility] Comment on above: Performed By: #### H EMDF, NH33, PT, CMP3, LIPA4, CK3, TROPN, LACT3, MDIFF, PCAL #### [address] [address] [place], [place] Creatinine mass conc 4.28 mg/dL High 0.52-1.25 [facility] Comment on above: Performed By: #### H EMDF, NH33, PT, CMP3, LIPA4, CK3, TROPN, LACT3, MDIFF, PCAL #### [address] [address] GFR/1.73 sq M predicted among blacks MDRD vol rate/area (S/P/Bld) 16.2 mL/min/{1.73_m2} Normal >60 [facility] Comment on above: Performed By: #### H EMDF, NH33, PT, CMP3, LIPA4, CK3, TROPN, LACT3, MDIFF, PCAL #### [address] [address] GFR/1.73 sq M predicted among non-blacks MDRD vol rate/area (S/P/Bld) 13.4 mL/min/{1.73_m2} Normal >60 [facility] Comment on above: Result Comment: Sour ce- MDRD equation with creatinine calibration to IDMS(NKDEP) eGFR not recommended for drug dose adjustment Performed By: #### H EMDF, NH33, PT, CMP3, LIPA4, CK3, TROPN, LACT3, MDIFF, PCAL #### [address] [address] Potassium molar conc 3.4 mmol/L Low 3.5-5.1 [facility] Comment on above: Performed By: #### H EMDF, NH33, PT, CMP3, LIPA4, CK3, TROPN, LACT3, MDIFF, PCAL #### [address] [address] Chloride molar conc 95 mmol/L Low 98-107 [facility] Comment on above: Performed By: #### H EMDF, NH33, PT, CMP3, LIPA4, CK3, TROPN, LACT3, MDIFF, PCAL #### [address] [address] Sodium molar conc 139 mmol/L Normal 135-145 [facility] Comment on above: Performed By: #### H EMDF, NH33, PT, CMP3, LIPA4, CK3, TROPN, LACT3, MDIFF, PCAL #### [address] [address] CR Chest Portableon 12-06-19 19 CR Chest Portable Patient Name: ELIAS SHAH Diagnostic Radiology Exam Date/Time 12/06/2018 06:25:16 EST Exam CR Chest Portable Ordering Physician KEE GARNICA HEATHER Accession Number [id number] CPT4 Codes 26032 () Reason For Exam pna Report CHEST [...] Transcribed Date and Time: 12/06/2018 8:10 Normal [facility] Echo Complete w/wo Contrasto n 12-06-2018 Echo Complete w/wo Contrast Patient Name: ELIAS SHAH Ultrasound Exam Date/Time 12/06/2018 10:17:48 EST Exam Echo Complete w/wo Contrast Ordering Physician KEE GARNICA HEATHER Accession Number [id number] Reason For Exam syncopal Report TRANSTHORACIC ECHOCARDIOGRAM PATIENT: Elias Shah STUDY DATE: 12/06/2018 : 1940 AGE: 78 HT/WT: 177.8 cm (70 82.6 kg (181.6 in) lb) GENDER: M BP: 136 / 68 LOCATION: [facility] PATIENT Inpatient [facility] STATUS: *ORDERING PHYSICIAN: * Patricia Garnica *READING PHYSICIAN: * José Miguel *STENCIL SPRAYER: * Torie Merrill RDCS, AE, [place], MD [facility] --- INDICATIONS: SYNCOPAL. --- CONCLUSIONS SUMMARY: 1. [...] Signed by: MD GUTIERREZ STEPHEN A Normal [facility] Hemogram w/ Autodiffon 12-06 Abs Baso Cnt 0.0 10*3/uL Normal 0.0-0.2 [facility] Comment on above: Performed By: #### H EMDF, NH33, PT, CMP3, LIPA4, CK3, TROPN, LACT3, MDIFF, PCAL #### [address] Abs Neutrophile Cnt 7.3 10*3/uL High 1.8-7.0 [facility] Comment on above: Performed By: #### H EMDF, NH33, PT, CMP3, LIPA4, CK3, TROPN, LACT3, MDIFF, PCAL #### [address] Basophils/100 WBC (Bld) 0.3 % Normal 0.0-2.0 [facility] Comment on above: Performed By: #### H EMDF, NH33, PT, CMP3, LIPA4, CK3, TROPN, LACT3, MDIFF, PCAL #### [address] Eosinophils #/vol (Bld) 0.0 10*3/uL Normal 0.0-0.5 [facility] Comment on above: Performed By: #### H EMDF, NH33, PT, CMP3, LIPA4, CK3, TROPN, LACT3, MDIFF, PCAL #### [address] Eosinophils/100 WBC (Bld) 0.0 % Low 1.0-6.0 [facility] Comment on above: Performed By: #### H EMDF, NH33, PT, CMP3, LIPA4, CK3, TROPN, LACT3, MDIFF, PCAL #### [address] Erythrocyte distribution width Ratio (RBC) 15.4 % High 11.5-14.5 [facility] Comment on above: Performed By: #### H EMDF, NH33, PT, CMP3, LIPA4, CK3, TROPN, LACT3, MDIFF, PCAL #### [address] Granulocytes/100 WBC (Bld) 71.0 % Normal 40.0-80.0 [facility] Comment on above: Performed By: #### H EMDF, NH33, PT, CMP3, LIPA4, CK3, TROPN, LACT3, MDIFF, PCAL #### [address] Hematocrit Volume Fraction (Bld) 35.1 % Low 40.0-52.0 [facility] Comment on above: Performed By: #### H EMDF, NH33, PT, CMP3, LIPA4, CK3, TROPN, LACT3, MDIFF, PCAL #### [address] Hemoglobin mass conc (Bld) 11.6 g/dL Low 13.0-18.0 [facility] Comment on above: Performed By: #### H EMDF, NH33, PT, CMP3, LIPA4, CK3, TROPN, LACT3, MDIFF, PCAL #### [address] Lymphocytes #/vol (Bld) 1.3 10*3/uL Normal 1.0-4.3 [facility] Comment on above: Performed By: #### H EMDF, NH33, PT, CMP3, LIPA4, CK3, TROPN, LACT3, MDIFF, PCAL #### [address] Lymphocytes/100 WBC (Bld) 13.1 % Low 20.0-40.0 [facility] Comment on above: Performed By: #### H EMDF, NH33, PT, CMP3, LIPA4, CK3, TROPN, LACT3, MDIFF, PCAL #### [address] MCH Entitic mass (RBC) 28.5 pg Normal 26.0-34.0 [facility] Comment on above: Performed By: #### H EMDF, NH33, PT, CMP3, LIPA4, CK3, TROPN, LACT3, MDIFF, PCAL #### [address] MCHC mass conc (RBC) 33.1 % Normal 32.0-36.0 [facility] Comment on above: Performed By: #### H EMDF, NH33, PT, CMP3, LIPA4, CK3, TROPN, LACT3, MDIFF, PCAL #### [address] MCV Entitic volume (RBC) 86.2 fL Normal 80.0-98.0 [facility] Comment on above: Performed By: #### H EMDF, NH33, PT, CMP3, LIPA4, CK3, TROPN, LACT3, MDIFF, PCAL #### [address] Monocytes #/vol (Bld) 1.6 10*3/uL High 0.0-0.8 [facility] Comment on above: Performed By: #### H EMDF, NH33, PT, CMP3, LIPA4, CK3, TROPN, LACT3, MDIFF, PCAL #### [address] Monocytes/100 WBC (Bld) 15.6 % High 2.0-10.0 [facility] Comment on above: Performed By: #### H EMDF, NH33, PT, CMP3, LIPA4, CK3, TROPN, LACT3, MDIFF, PCAL #### [address] Platelet mean volume Entitic volume (Bld) 8.6 fL Normal 7.4-10.4 [facility] Comment on above: Performed By: #### H EMDF, NH33, PT, CMP3, LIPA4, CK3, TROPN, LACT3, MDIFF, PCAL #### [address] Platelets #/vol (Bld) 224 10*3/uL Normal 140-440 [facility] Comment on above: Performed By: #### H EMDF, NH33, PT, CMP3, LIPA4, CK3, TROPN, LACT3, MDIFF, PCAL #### [address] RBC #/vol (Bld) 4.07 10*6/uL Low 4.40-5.90 [facility] Comment on above: Performed By: #### H EMDF, NH33, PT, CMP3, LIPA4, CK3, TROPN, LACT3, MDIFF, PCAL #### [address] WBC #/vol (Bld) 10.3 10*3/uL Normal 3.6-10.7 [facility] Comment on above: Performed By: #### H EMDF, NH33, PT, CMP3, LIPA4, CK3, TROPN, LACT3, MDIFF, PCAL #### [address] [address] Magnesiumon 12-06-2018 Magnesium mass conc 3.0 mg/dL High 1.6-2.3 [facility] Comment on above: Performed By: #### H EMDF, NH33, PT, CMP3, LIPA4, CK3, TROPN, LACT3, MDIFF, PCAL #### [address] [id number] Magnesium mass conc 3.1 mg/dL High 1.6-2.3 [facility] Comment on above: Performed By: #### H EMDF, NH33, PT, CMP3, LIPA4, CK3, TROPN, LACT3, MDIFF, PCAL #### [place] [address] [address] [place], [place] Magnesium mass conc 3.3 mg/dL High 1.6-2.3 [facility] Comment on above: Performed By: #### H EMDF, NH33, PT, CMP3, LIPA4, CK3, TROPN, LACT3, MDIFF, PCAL #### [facility] [address] [place], [place] Magnesium mass conc 3.4 mg/dL High 1.6-2.3 [facility] Comment on above: Performed By: #### H EMDF, NH33, PT, CMP3, LIPA4, CK3, TROPN, LACT3, MDIFF, PCAL #### [place] [address] [place], [place] Phosphoruson 12-06-2018 Phosphate mass conc 4.0 mg/dL Normal 2.5-4.5 [facility] Comment on above: Performed By: #### H EMDF, NH33, PT, CMP3, LIPA4, CK3, TROPN, LACT3, MDIFF, PCAL #### [place] [address] [address] [place], [place] Troponin Ion 12-06-2018 Troponin I.cardiac mass conc 0.240 ng/mL High 0.000-0.034 [facility] Comment on above: Result Comment: 0.04 6 - 0.400 = Indeterminate > 0.400 = Consider Myocardial Injury Performed By: #### H EMDF, NH33, PT, CMP3, LIPA4, CK3, TROPN, LACT3, MDIFF, PCAL #### [place] [address] [address] [place], [place] Add on test from [facility] 12-05 Add on test from [facility] Accepted Normal [facility] Comment on above: Result Comment: Spec imen available & acceptable for analysis. Performed By: #### H EMDF, NH33, PT, CMP3, LIPA4, CK3, TROPN, LACT3, MDIFF, PCAL #### [place] [address] [place], [place] Basic Metabolic Panelon 11-23 Anion gap molar conc 11 Normal [facility] Comment on above: Performed By: #### H EMDF, NH33, PT, CMP3, LIPA4, CK3, TROPN, LACT3, MDIFF, PCAL #### [place] [address] [place], [place] CO2 molar conc 35 mmol/L High 22-30 [facility] Comment on above: Performed By: #### H EMDF, NH33, PT, CMP3, LIPA4, CK3, TROPN, LACT3, MDIFF, PCAL #### [address] Calcium mass conc 8.8 mg/dL Normal 8.4-10.4 [facility] Comment on above: Performed By: #### H EMDF, NH33, PT, CMP3, LIPA4, CK3, TROPN, LACT3, MDIFF, PCAL #### [place] [address] [place], [place] Glucose mass conc 124 mg/dL High 70-100 [facility] Comment on above: Performed By: #### H EMDF, NH33, PT, CMP3, LIPA4, CK3, TROPN, LACT3, MDIFF, PCAL #### [place] [address] [place], [place] Urea nitrogen mass conc 89 mg/dL High 7-20 [facility] Comment on above: Performed By: #### H EMDF, NH33, PT, CMP3, LIPA4, CK3, TROPN, LACT3, MDIFF, PCAL #### [place] [address] [place], [place] Creatinine mass conc 5.11 mg/dL High 0.52-1.25 [facility] Comment on above: Performed By: #### H EMDF, NH33, PT, CMP3, LIPA4, CK3, TROPN, LACT3, MDIFF, PCAL #### [address] [address] [place], [place] GFR/1.73 sq M predicted among blacks MDRD vol rate/area (S/P/Bld) 13.2 mL/min/{1.73_m2} Normal >60 [facility] Comment on above: Performed By: #### H EMDF, NH33, PT, CMP3, LIPA4, CK3, TROPN, LACT3, MDIFF, PCAL #### [address] [address] [place], [place] GFR/1.73 sq M predicted among non-blacks MDRD vol rate/area (S/P/Bld) 10.9 mL/min/{1.73_m2} Normal >60 [facility] Comment on above: Result Comment: Sour ce- MDRD equation with creatinine calibration to IDMS(NKDEP) eGFR not recommended for drug dose adjustment Performed By: #### H EMDF, NH33, PT, CMP3, LIPA4, CK3, TROPN, LACT3, MDIFF, PCAL #### [address] Chloride molar conc 93 mmol/L Low 98-107 [facility] Comment on above: Performed By: #### H EMDF, NH33, PT, CMP3, LIPA4, CK3, TROPN, LACT3, MDIFF, PCAL #### [address] Potassium molar conc 3.7 mmol/L Normal 3.5-5.1 [facility] Comment on above: Performed By: #### H EMDF, NH33, PT, CMP3, LIPA4, CK3, TROPN, LACT3, MDIFF, PCAL #### [address] Sodium molar conc 137 mmol/L Normal 135-145 [facility] Comment on above: Performed By: #### H EMDF, NH33, PT, CMP3, LIPA4, CK3, TROPN, LACT3, MDIFF, PCAL #### [address] Calcium mass conc 5.4 mg/dL Critically low 8.4-10.4 [facility] Comment on above: Result Comment: Repe ated Performed By: #### H EMDF, NH33, PT, CMP3, LIPA4, CK3, TROPN, LACT3, MDIFF, PCAL #### [address] [address] [address] [place], [place] Potassium molar conc 2.3 mmol/L Critically low 3.5-5.1 [facility] Comment on above: Result Comment: Repe ated Performed By: #### H EMDF, NH33, PT, CMP3, LIPA4, CK3, TROPN, LACT3, MDIFF, PCAL #### [address] [address] [address] [place], [place] Anion gap molar conc 7 Normal [facility] Comment on above: Performed By: #### H EMDF, NH33, PT, CMP3, LIPA4, CK3, TROPN, LACT3, MDIFF, PCAL #### [address] [address] [place], [place] CO2 molar conc 24 mmol/L Normal 22-30 [facility] Comment on above: Performed By: #### H EMDF, NH33, PT, CMP3, LIPA4, CK3, TROPN, LACT3, MDIFF, PCAL #### [address] [address] [address] [place], [place] Glucose mass conc 116 mg/dL High 70-100 [facility] Comment on above: Performed By: #### H EMDF, NH33, PT, CMP3, LIPA4, CK3, TROPN, LACT3, MDIFF, PCAL #### [address] [address] [address] [place], [place] Urea nitrogen mass conc 63 mg/dL High 7-20 S [facility] Comment on above: Performed By: #### H EMDF, NH33, PT, CMP3, LIPA4, CK3, TROPN, LACT3, MDIFF, PCAL #### [address] [address] [place], [place] Creatinine mass conc 3.44 mg/dL High 0.52-1.25 [facility] Comment on above: Performed By: #### H EMDF, NH33, PT, CMP3, LIPA4, CK3, TROPN, LACT3, MDIFF, PCAL #### [address] [address] [address] [place], [place] GFR/1.73 sq M predicted among blacks MDRD vol rate/area (S/P/Bld) 20.9 mL/min/{1.73_m2} Normal >60 [facility] Comment on above: Performed By: #### H EMDF, NH33, PT, CMP3, LIPA4, CK3, TROPN, LACT3, MDIFF, PCAL #### [address] [address] [address] [place], [place] GFR/1.73 sq M predicted among non-blacks MDRD vol rate/area (S/P/Bld) 17.2 mL/min/{1.73_m2} Normal >60 [facility] Comment on above: Result Comment: Sour ce- MDRD equation with creatinine calibration to IDMS(NKDEP) eGFR not recommended for drug dose adjustment Performed By: #### H EMDF, NH33, PT, CMP3, LIPA4, CK3, TROPN, LACT3, MDIFF, PCAL #### [address] [address] [address] [place], [place] Chloride molar conc 109 mmol/L High 98-107 [facility] Comment on above: Performed By: #### H EMDF, NH33, PT, CMP3, LIPA4, CK3, TROPN, LACT3, MDIFF, PCAL #### [address] [address] [address] [place], [place] Sodium molar conc 140 mmol/L Normal 135-145 [facility] Comment on above: Performed By: #### H EMDF, NH33, PT, CMP3, LIPA4, CK3, TROPN, LACT3, MDIFF, PCAL #### [address] Anion gap molar conc 12 Normal [facility] Comment on above: Performed By: #### H EMDF, NH33, PT, CMP3, LIPA4, CK3, TROPN, LACT3, MDIFF, PCAL #### [address] [address] [place], [place] Calcium mass conc 7.8 mg/dL Low 8.4-10.4 [facility] Comment on above: Performed By: #### H EMDF, NH33, PT, CMP3, LIPA4, CK3, TROPN, LACT3, MDIFF, PCAL #### [address] [address] [place], [place] CO2 molar conc 32 mmol/L High 22-30 [facility] Comment on above: Performed By: #### H EMDF, NH33, PT, CMP3, LIPA4, CK3, TROPN, LACT3, MDIFF, PCAL #### [address] Glucose mass conc 133 mg/dL High 70-100 [facility] Comment on above: Performed By: #### H EMDF, NH33, PT, CMP3, LIPA4, CK3, TROPN, LACT3, MDIFF, PCAL #### [address] Urea nitrogen mass conc 84 mg/dL High 7-20 S [facility] Comment on above: Performed By: #### H EMDF, NH33, PT, CMP3, LIPA4, CK3, TROPN, LACT3, MDIFF, PCAL #### [address] [address] [place], [place] Creatinine mass conc 5.23 mg/dL High 0.52-1.25 [facility] Comment on above: Performed By: #### H EMDF, NH33, PT, CMP3, LIPA4, CK3, TROPN, LACT3, MDIFF, PCAL #### [address] [address] [address] [place], [place] GFR/1.73 sq M predicted among blacks MDRD vol rate/area (S/P/Bld) 12.9 mL/min/{1.73_m2} Normal >60 [facility] Comment on above: Performed By: #### H EMDF, NH33, PT, CMP3, LIPA4, CK3, TROPN, LACT3, MDIFF, PCAL #### [address] [address] [place], [place] GFR/1.73 sq M predicted among non-blacks MDRD vol rate/area (S/P/Bld) 10.6 mL/min/{1.73_m2} Normal >60 [facility] Comment on above: Result Comment: Sour ce- MDRD equation with creatinine calibration to IDMS(NKDEP) eGFR not recommended for drug dose adjustment Performed By: #### H EMDF, NH33, PT, CMP3, LIPA4, CK3, TROPN, LACT3, MDIFF, PCAL #### [address] Chloride molar conc 95 mmol/L Low 98-107 [facility] Comment on above: Performed By: #### H EMDF, NH33, PT, CMP3, LIPA4, CK3, TROPN, LACT3, MDIFF, PCAL #### [address] Potassium molar conc 3.4 mmol/L Low 3.5-5.1 [facility] Comment on above: Performed By: #### H EMDF, NH33, PT, CMP3, LIPA4, CK3, TROPN, LACT3, MDIFF, PCAL #### [address] Sodium molar conc 139 mmol/L Normal 135-145 [facility] Comment on above: Performed By: #### H EMDF, NH33, PT, CMP3, LIPA4, CK3, TROPN, LACT3, MDIFF, PCAL #### [address] Calcium mass conc 8.1 mg/dL Low 8.4-10.4 [facility] Comment on above: Performed By: #### H EMDF, NH33, PT, CMP3, LIPA4, CK3, TROPN, LACT3, MDIFF, PCAL #### [address] Anion gap molar conc 18 Normal [facility] Comment on above: Performed By: #### H EMDF, NH33, PT, CMP3, LIPA4, CK3, TROPN, LACT3, MDIFF, PCAL #### [address] [place], [place] CO2 molar conc 30 mmol/L Normal 22-30 [facility] Comment on above: Performed By: #### H EMDF, NH33, PT, CMP3, LIPA4, CK3, TROPN, LACT3, MDIFF, PCAL #### [address] [address] [place], [place] Creatinine mass conc 5.38 mg/dL High 0.52-1.25 [facility] Comment on above: Performed By: #### H EMDF, NH33, PT, CMP3, LIPA4, CK3, TROPN, LACT3, MDIFF, PCAL #### [address] [address] [place], [place] GFR/1.73 sq M predicted among blacks MDRD vol rate/area (S/P/Bld) 12.5 mL/min/{1.73_m2} Normal >60 [facility] Comment on above: Performed By: #### H EMDF, NH33, PT, CMP3, LIPA4, CK3, TROPN, LACT3, MDIFF, PCAL #### [address] [address] [address] [place], [place] GFR/1.73 sq M predicted among non-blacks MDRD vol rate/area (S/P/Bld) 10.3 mL/min/{1.73_m2} Normal >60 [facility] Comment on above: Result Comment: Sour ce- MDRD equation with creatinine calibration to IDMS(NKDEP) eGFR not recommended for drug dose adjustment Performed By: #### H EMDF, NH33, PT, CMP3, LIPA4, CK3, TROPN, LACT3, MDIFF, PCAL #### [address] [address] [place], [place] Glucose mass conc 148 mg/dL High 70-100 [facility] Comment on above: Performed By: #### H EMDF, NH33, PT, CMP3, LIPA4, CK3, TROPN, LACT3, MDIFF, PCAL #### [address] [address] [place], [place] Urea nitrogen mass conc 78 mg/dL High 7-20 S [facility] Comment on above: Performed By: #### H EMDF, NH33, PT, CMP3, LIPA4, CK3, TROPN, LACT3, MDIFF, PCAL #### [facility] [address] [place] [address] Potassium molar conc 3.5 mmol/L Normal 3.5-5.1 [facility] Comment on above: Performed By: #### H EMDF, NH33, PT, CMP3, LIPA4, CK3, TROPN, LACT3, MDIFF, PCAL #### [facility] [address] [place] [address] Sodium molar conc 139 mmol/L Normal 135-145 [facility] Comment on above: Performed By: #### H EMDF, NH33, PT, CMP3, LIPA4, CK3, TROPN, LACT3, MDIFF, PCAL #### [facility] [address] [place] [address] Chloride molar conc 91 mmol/L Low 98-107 [facility] Comment on above: Performed By: #### H EMDF, NH33, PT, CMP3, LIPA4, CK3, TROPN, LACT3, MDIFF, PCAL #### [facility] [address] [place] [address] CR Chest Portableon 12-05-19 19 CR Chest Portable Patient Name: ELIAS SHAH Diagnostic Radiology Exam Date/Time 12/05/2018 12:50:41 EST Exam CR Chest Portable Ordering Physician MD MANINDER, SIMON Wall Accession Number [id number] CPT4 Codes 33260 () Reason For Exam cvc placement Report [...] Transcribed Date and Time: 12/05/2018 2:02 Normal [facility] Calcium,Ionizedon 12-05-2018 Ionized Ca,Measured 4.00 mg/dL Low 4.30-5.20 [facility] Comment on above: Performed By: #### H EMDF, NH33, PT, CMP3, LIPA4, CK3, TROPN, LACT3, MDIFF, PCAL #### [address] pH, Ionized Calcium 7.39 Normal 7.31-7.46 [facility] Comment on above: Performed By: #### H EMDF, NH33, PT, CMP3, LIPA4, CK3, TROPN, LACT3, MDIFF, PCAL #### [address] Hemogram w/ Autodiffon 12-05 Abs Baso Cnt 0.1 10*3/uL Normal 0.0-0.2 [facility] Comment on above: Performed By: #### H EMDF, NH33, PT, CMP3, LIPA4, CK3, TROPN, LACT3, MDIFF, PCAL #### [address] Abs Neutrophile Cnt 10.4 10*3/uL High 1.8-7.0 [facility] Comment on above: Performed By: #### H EMDF, NH33, PT, CMP3, LIPA4, CK3, TROPN, LACT3, MDIFF, PCAL #### [address] Basophils/100 WBC (Bld) 0.5 % Normal 0.0-2.0 S [facility] Comment on above: Performed By: #### H EMDF, NH33, PT, CMP3, LIPA4, CK3, TROPN, LACT3, MDIFF, PCAL #### [address] Eosinophils #/vol (Bld) 0.0 10*3/uL Normal 0.0-0.5 [facility] Comment on above: Performed By: #### H EMDF, NH33, PT, CMP3, LIPA4, CK3, TROPN, LACT3, MDIFF, PCAL #### [address] Eosinophils/100 WBC (Bld) 0.0 % Low 1.0-6.0 [facility] Comment on above: Performed By: #### H EMDF, NH33, PT, CMP3, LIPA4, CK3, TROPN, LACT3, MDIFF, PCAL #### [address] Erythrocyte distribution width Ratio (RBC) 15.7 % High 11.5-14.5 [facility] Comment on above: Performed By: #### H EMDF, NH33, PT, CMP3, LIPA4, CK3, TROPN, LACT3, MDIFF, PCAL #### [address] Granulocytes/100 WBC (Bld) 77.9 % Normal 40.0-80.0 [facility] Comment on above: Performed By: #### H EMDF, NH33, PT, CMP3, LIPA4, CK3, TROPN, LACT3, MDIFF, PCAL #### [address] Hematocrit Volume Fraction (Bld) 36.7 % Low 40.0-52.0 [facility] Comment on above: Performed By: #### H EMDF, NH33, PT, CMP3, LIPA4, CK3, TROPN, LACT3, MDIFF, PCAL #### [address] Hemoglobin mass conc (Bld) 11.9 g/dL Low 13.0-18.0 [facility] Comment on above: Performed By: #### H EMDF, NH33, PT, CMP3, LIPA4, CK3, TROPN, LACT3, MDIFF, PCAL #### [address] Lymphocytes #/vol (Bld) 0.9 10*3/uL Low 1.0-4.3 [facility] Comment on above: Performed By: #### H EMDF, NH33, PT, CMP3, LIPA4, CK3, TROPN, LACT3, MDIFF, PCAL #### [address] Lymphocytes/100 WBC (Bld) 6.6 % Low 20.0-40.0 [facility] Comment on above: Performed By: #### H EMDF, NH33, PT, CMP3, LIPA4, CK3, TROPN, LACT3, MDIFF, PCAL #### [address] MCH Entitic mass (RBC) 28.0 pg Normal 26.0-34.0 [facility] Comment on above: Performed By: #### H EMDF, NH33, PT, CMP3, LIPA4, CK3, TROPN, LACT3, MDIFF, PCAL #### [address] MCHC mass conc (RBC) 32.3 % Normal 32.0-36.0 [facility] Comment on above: Performed By: #### H EMDF, NH33, PT, CMP3, LIPA4, CK3, TROPN, LACT3, MDIFF, PCAL #### [address] MCV Entitic volume (RBC) 86.7 fL Normal 80.0-98.0 [facility] Comment on above: Performed By: #### H EMDF, NH33, PT, CMP3, LIPA4, CK3, TROPN, LACT3, MDIFF, PCAL #### [address] Monocytes #/vol (Bld) 2.0 10*3/uL High 0.0-0.8 [facility] Comment on above: Performed By: #### H EMDF, NH33, PT, CMP3, LIPA4, CK3, TROPN, LACT3, MDIFF, PCAL #### [address] Monocytes/100 WBC (Bld) 15.0 % High 2.0-10.0 S [facility] Comment on above: Performed By: #### H EMDF, NH33, PT, CMP3, LIPA4, CK3, TROPN, LACT3, MDIFF, PCAL #### [address] Platelet mean volume Entitic volume (Bld) 9.1 fL Normal 7.4-10.4 [facility] Comment on above: Performed By: #### H EMDF, NH33, PT, CMP3, LIPA4, CK3, TROPN, LACT3, MDIFF, PCAL #### [address] Platelets #/vol (Bld) 218 10*3/uL Normal 140-440 [facility] Comment on above: Performed By: #### H EMDF, NH33, PT, CMP3, LIPA4, CK3, TROPN, LACT3, MDIFF, PCAL #### [address] RBC #/vol (Bld) 4.23 10*6/uL Low 4.40-5.90 [facility] Comment on above: Performed By: #### H EMDF, NH33, PT, CMP3, LIPA4, CK3, TROPN, LACT3, MDIFF, PCAL #### [address] WBC #/vol (Bld) 13.3 10*3/uL High 3.6-10.7 [facility] Comment on above: Performed By: #### H EMDF, NH33, PT, CMP3, LIPA4, CK3, TROPN, LACT3, MDIFF, PCAL #### [address] Lactic Acidon 12-05-2018 Lactate molar conc 1.0 mmol/L Normal 0.7-2.0 [facility] Comment on above: Performed By: #### H EMDF, NH33, PT, CMP3, LIPA4, CK3, TROPN, LACT3, MDIFF, PCAL #### [address] [address] [place], [place] Lactate molar conc 1.1 mmol/L Normal 0.7-2.0 [facility] Comment on above: Performed By: #### H EMDF, NH33, PT, CMP3, LIPA4, CK3, TROPN, LACT3, MDIFF, PCAL #### [address] Lactate molar conc 1.5 mmol/L Normal 0.7-2.0 [facility] Comment on above: Performed By: #### H EMDF, NH33, PT, CMP3, LIPA4, CK3, TROPN, LACT3, MDIFF, PCAL #### [address] Lactate molar conc 1.6 mmol/L Normal 0.7-2.0 [facility] Comment on above: Performed By: #### H EMDF, NH33, PT, CMP3, LIPA4, CK3, TROPN, LACT3, MDIFF, PCAL #### [address] Magnesiumon 12-05-2018 Magnesium mass conc 1.6 mg/dL Normal 1.6-2.3 [facility] Comment on above: Performed By: #### H EMDF, NH33, PT, CMP3, LIPA4, CK3, TROPN, LACT3, MDIFF, PCAL #### [address] Magnesium mass conc 2.3 mg/dL Normal 1.6-2.3 [facility] Comment on above: Performed By: #### H EMDF, NH33, PT, CMP3, LIPA4, CK3, TROPN, LACT3, MDIFF, PCAL #### [address] Magnesium mass conc 2.5 mg/dL High 1.6-2.3 [facility] Comment on above: Performed By: #### H EMDF, NH33, PT, CMP3, LIPA4, CK3, TROPN, LACT3, MDIFF, PCAL #### [address] Microalbumin/Creat Ratioon 0 12-05-2018 Microalb/Creat Ratio 206.2 mg/g High 0.0-29.9 [facility] Comment on above: Performed By: #### H EMDF, NH33, PT, CMP3, LIPA4, CK3, TROPN, LACT3, MDIFF, PCAL #### [address] Microalbumin, Ur 375.0 mg/L High 0.0-17.0 [facility] Comment on above: Result Comment: Micr oalbumin concentrations <30 are considered normal, 30-300 are considered microalbuminuria (or risk of diabetic nephropathy), and >300 are considered clinical albuminuria (clinical nephropathy). Diabetes Care,27, Supplement 1, Z38-45, 2003 Performed By: #### H EMDF, NH33, PT, CMP3, LIPA4, CK3, TROPN, LACT3, MDIFF, PCAL #### [address] Creatinine, Ur Random 181.9 mg/dL Normal No Range [facility] Comment on above: Performed By: #### H EMDF, NH33, PT, CMP3, LIPA4, CK3, TROPN, LACT3, MDIFF, PCAL #### [address] Op Noteon 12-05-2018 Op Note PATIENT: ELIAS [...] ventral hernia with strangulated bowel. Anesthesia: General. High Speed Printer Operator: Dr. Van Tolliver. Complications: None. Blood Loss: Minimal. Details: The patient is an 78-year-old gentleman who presents to [facility] ER with abdominal pain, emesis, acute [...] Made 2 enterotomies, we then performed a [id number] functional, end-to-end stapled anastomosis using 75 mm [...] Unit in stable condition. Diskriter Job ID: [id number] Felipe Gonzáles DO DOD:12/04/2018 10:08 P MAP/dsk DOT:12/05/2018 01:14 A Job Number: [id number] Document Number: [id number] cc: Stella Bosch II, MD [address] [place] [address] [address] [facility] [id number] Felipe Gonzáles DO [facility] [address] [place] [address] Normal [facility] Osmolality,Urineon 9 Osmolality,Urine 466 mosm/kg Normal 300-1000 [facility] Comment on above: Performed By: #### H EMDF, NH33, PT, CMP3, LIPA4, CK3, TROPN, LACT3, MDIFF, PCAL #### [address] [address] PTH, Intacton 12-05-2018 PTH, Intact 224.6 pg/mL High 15.0-63.0 [facility] Comment on above: Performed By: #### H EMDF, NH33, PT, CMP3, LIPA4, CK3, TROPN, LACT3, MDIFF, PCAL #### [address] [address] Phosphoruson 12-05-2018 Phosphate mass conc 5.4 mg/dL High 2.5-4.5 [facility] Comment on above: Performed By: #### H EMDF, NH33, PT, CMP3, LIPA4, CK3, TROPN, LACT3, MDIFF, PCAL #### [address] [address] Phosphate mass conc 5.7 mg/dL High 2.5-4.5 [facility] Comment on above: Performed By: #### H EMDF, NH33, PT, CMP3, LIPA4, CK3, TROPN, LACT3, MDIFF, PCAL #### [address] Protein, Ur Randomon 019 Protein mass conc 34 mg/dL High No Range [facility] Comment on above: Performed By: #### H EMDF, NH33, PT, CMP3, LIPA4, CK3, TROPN, LACT3, MDIFF, PCAL #### [address] [address] [address] [place], [place] Renal Functionon 12-05-2018 Calcium mass conc 8.0 mg/dL Low 8.4-10.4 [facility] Comment on above: Performed By: #### H EMDF, NH33, PT, CMP3, LIPA4, CK3, TROPN, LACT3, MDIFF, PCAL #### [address] [address] [place], [place] Glucose mass conc 117 mg/dL High 70-100 [facility] Comment on above: Performed By: #### H EMDF, NH33, PT, CMP3, LIPA4, CK3, TROPN, LACT3, MDIFF, PCAL #### [address] [place], [place] Phosphate mass conc 6.1 mg/dL High 2.5-4.5 [facility] Comment on above: Performed By: #### H EMDF, NH33, PT, CMP3, LIPA4, CK3, TROPN, LACT3, MDIFF, PCAL #### [address] [address] [place], [place] Urea nitrogen mass conc 93 mg/dL High 7-20 S [facility] Comment on above: Performed By: #### H EMDF, NH33, PT, CMP3, LIPA4, CK3, TROPN, LACT3, MDIFF, PCAL #### [address] [address] [place], [place] Anion gap molar conc 10 Normal [facility] Comment on above: Performed By: #### H EMDF, NH33, PT, CMP3, LIPA4, CK3, TROPN, LACT3, MDIFF, PCAL #### [address] [address] [place], [place] CO2 molar conc 34 mmol/L High 22-30 [facility] Comment on above: Performed By: #### H EMDF, NH33, PT, CMP3, LIPA4, CK3, TROPN, LACT3, MDIFF, PCAL #### [address] Creatinine mass conc 5.05 mg/dL High 0.52-1.25 [facility] Comment on above: Performed By: #### H EMDF, NH33, PT, CMP3, LIPA4, CK3, TROPN, LACT3, MDIFF, PCAL #### [address] [address] [place], [place] GFR/1.73 sq M predicted among blacks MDRD vol rate/area (S/P/Bld) 13.4 mL/min/{1.73_m2} Normal >60 [facility] Comment on above: Performed By: #### H EMDF, NH33, PT, CMP3, LIPA4, CK3, TROPN, LACT3, MDIFF, PCAL #### [address] [address] [place], [place] GFR/1.73 sq M predicted among non-blacks MDRD vol rate/area (S/P/Bld) 11.1 mL/min/{1.73_m2} Normal >60 [facility] Comment on above: Result Comment: Sour ce- MDRD equation with creatinine calibration to IDMS(NKDEP) eGFR not recommended for drug dose adjustment Performed By: #### H EMDF, NH33, PT, CMP3, LIPA4, CK3, TROPN, LACT3, MDIFF, PCAL #### [address] [place], [place] Potassium molar conc 3.9 mmol/L Normal 3.5-5.1 [facility] Comment on above: Performed By: #### H EMDF, NH33, PT, CMP3, LIPA4, CK3, TROPN, LACT3, MDIFF, PCAL #### [address] [address] [place], [place] Albumin mass conc 3.0 g/dL Low 3.5-5.0 [facility] Comment on above: Performed By: #### H EMDF, NH33, PT, CMP3, LIPA4, CK3, TROPN, LACT3, MDIFF, PCAL #### [address] [place], [place] Chloride molar conc 93 mmol/L Low 98-107 [facility] Comment on above: Performed By: #### H EMDF, NH33, PT, CMP3, LIPA4, CK3, TROPN, LACT3, MDIFF, PCAL #### [address] [place], [place] Sodium molar conc 137 mmol/L Normal 135-145 [facility] Comment on above: Performed By: #### H EMDF, NH33, PT, CMP3, LIPA4, CK3, TROPN, LACT3, MDIFF, PCAL #### [address] [address] [place], [place] Sodium, Ur Randomon 12-05-19 19 Sodium molar conc 34 mmol/L Normal No Range [facility] Comment on above: Performed By: #### H EMDF, NH33, PT, CMP3, LIPA4, CK3, TROPN, LACT3, MDIFF, PCAL #### [address] [address] [place], [place] Thyroid Stim. Hormoneon 11-23 Thyroid Stim. Hormone 2.220 u[IU]/mL Normal 0.465-4.68 0 [facility] Comment on above: Performed By: #### H EMDF, NH33, PT, CMP3, LIPA4, CK3, TROPN, LACT3, MDIFF, PCAL #### [address] [address] [address] [place], [place] Troponin Ion 12-05-2018 Troponin I.cardiac mass conc 0.467 ng/mL High 0.000-0.034 [facility] Comment on above: Result Comment: 0.04 6 - 0.400 = Indeterminate > 0.400 = Consider Myocardial Injury Performed By: #### H EMDF, NH33, PT, CMP3, LIPA4, CK3, TROPN, LACT3, MDIFF, PCAL #### [facility] [address] [place], [place] Troponin I.cardiac mass conc 0.716 ng/mL High 0.000-0.034 [facility] Comment on above: Result Comment: 0.04 6 - 0.400 = Indeterminate > 0.400 = Consider Myocardial Injury Performed By: #### H EMDF, NH33, PT, CMP3, LIPA4, CK3, TROPN, LACT3, MDIFF, PCAL #### [facility] [address] [place], [place] Troponin I.cardiac mass conc 0.952 ng/mL High 0.000-0.034 [facility] Comment on above: Result Comment: 0.04 6 - 0.400 = Indeterminate > 0.400 = Consider Myocardial Injury Performed By: #### H EMDF, NH33, PT, CMP3, LIPA4, CK3, TROPN, LACT3, MDIFF, PCAL #### [facility] [address] [place], [place] Urea Nitrogen,Ur Randomon Urea nitrogen mass conc 490 mg/dL Normal No Range S [facility] Comment on above: Performed By: #### H EMDF, NH33, PT, CMP3, LIPA4, CK3, TROPN, LACT3, MDIFF, PCAL #### [facility] [address] [place], [place] Vit D 25-OH, Totalon 019 Vit D 25-OH, Total 18 ng/mL Low 30-100 [facility] Comment on above: Result Comment: Ther apy is based on measurement of Total 25-OHD with the following classification levels: Less than 20 ng/mL: Indicative of Vit D deficiency 20-30 ng/mL: Suggests Vit D insufficiency Optimal: Greater than or equal to 30 ng/mL Test performed by [employer] Immunoassay, measuring Total Vitamin D, not individual fractions. Performed By: #### H EMDF, NH33, PT, CMP3, LIPA4, CK3, TROPN, LACT3, MDIFF, PCAL #### [facility] [address] [place], [place] Vitamin B12on 12-05-2018 Cobalamin (Vitamin B12) mass conc 260 pg/mL Normal 239-931 [facility] Comment on above: Performed By: #### H EMDF, NH33, PT, CMP3, LIPA4, CK3, TROPN, LACT3, MDIFF, PCAL #### [address] [address] [place], [place] Ammoniaon 12-04-2018 Ammonia mass conc (P) 24 umol/L Normal 9-30 [facility] Comment on above: Performed By: #### H EMDF, NH33, PT, CMP3, LIPA4, CK3, TROPN, LACT3, MDIFF, PCAL #### [address] Arterial Blood Gaseson 12-04 CO2 molar conc 30.8 mmol/L High 23.0-27.0 [facility] [facility] Comment on above: Performed By: #### H EMDF, NH33, PT, CMP3, LIPA4, CK3, TROPN, LACT3, MDIFF, PCAL #### [address] [address] [place], [place] HCO3 molar conc (Bld) 29.4 mmol/L High 21.0-25.0 [facility] Comment on above: Performed By: #### H EMDF, NH33, PT, CMP3, LIPA4, CK3, TROPN, LACT3, MDIFF, PCAL #### [address] [address] [place], [place] Hemoglobin mass conc (Bld) 13.9 g/dL Normal ScreenOnly [facility] Comment on above: Performed By: #### H EMDF, NH33, PT, CMP3, LIPA4, CK3, TROPN, LACT3, MDIFF, PCAL #### [address] Oxygen ppres (Bld) 102.3 mm[Hg] High 80.0-100.0 [facility] Comment on above: Performed By: #### H EMDF, NH33, PT, CMP3, LIPA4, CK3, TROPN, LACT3, MDIFF, PCAL #### [address] Oxygen saturation in Blood 97.1 % Normal 95.0-100.0 [facility] Comment on above: Performed By: #### H EMDF, NH33, PT, CMP3, LIPA4, CK3, TROPN, LACT3, MDIFF, PCAL #### [address] pCO2 46.8 mm[Hg] High 35.0-45.0 [facility] Comment on above: Performed By: #### H EMDF, NH33, PT, CMP3, LIPA4, CK3, TROPN, LACT3, MDIFF, PCAL #### [address] pH (Bld) 7.416 Normal 7.350-7.450 [facility] Comment on above: Performed By: #### H EMDF, NH33, PT, CMP3, LIPA4, CK3, TROPN, LACT3, MDIFF, PCAL #### [address] Std Base Excess 4.1 mmol/L High -3.0-3.0 [facility] Comment on above: Performed By: #### H EMDF, NH33, PT, CMP3, LIPA4, CK3, TROPN, LACT3, MDIFF, PCAL #### [address] FIO2 No data Normal [facility] Comment on above: Performed By: #### H EMDF, NH33, PT, CMP3, LIPA4, CK3, TROPN, LACT3, MDIFF, PCAL #### [address] CO2 molar conc 31.5 mmol/L High 23.0-27.0 [facility] Comment on above: Performed By: #### H EMDF, NH33, PT, CMP3, LIPA4, CK3, TROPN, LACT3, MDIFF, PCAL #### [address], [place] HCO3 molar conc (Bld) 30.3 mmol/L High 21.0-25.0 [facility] Comment on above: Performed By: #### H EMDF, NH33, PT, CMP3, LIPA4, CK3, TROPN, LACT3, MDIFF, PCAL #### [address] Hemoglobin mass conc (Bld) 13.1 g/dL Normal ScreenOnly [facility] Comment on above: Performed By: #### H EMDF, NH33, PT, CMP3, LIPA4, CK3, TROPN, LACT3, MDIFF, PCAL #### [address] Oxygen ppres (Bld) 430.1 mm[Hg] High 80.0-100.0 [facility] Comment on above: Performed By: #### H EMDF, NH33, PT, CMP3, LIPA4, CK3, TROPN, LACT3, MDIFF, PCAL #### [address] Oxygen saturation in Blood 99.6 % Normal 95.0-100.0 [facility] Comment on above: Performed By: #### H EMDF, NH33, PT, CMP3, LIPA4, CK3, TROPN, LACT3, MDIFF, PCAL #### [address] pCO2 40.2 mm[Hg] Normal 35.0-45.0 [facility] Comment on above: Performed By: #### H EMDF, NH33, PT, CMP3, LIPA4, CK3, TROPN, LACT3, MDIFF, PCAL #### [address] pH (Bld) 7.495 High 7.350-7.450 [facility] Comment on above: Performed By: #### H EMDF, NH33, PT, CMP3, LIPA4, CK3, TROPN, LACT3, MDIFF, PCAL #### [address] [address] [address] [place], [place] Std Base Excess 6.5 mmol/L High -3.0-3.0 [facility] Comment on above: Performed By: #### H EMDF, NH33, PT, CMP3, LIPA4, CK3, TROPN, LACT3, MDIFF, PCAL #### [facility] [address] [place], [place] FIO2 100% Normal [facility] Comment on above: Performed By: #### H EMDF, NH33, PT, CMP3, LIPA4, CK3, TROPN, LACT3, MDIFF, PCAL #### [facility] [address] [place], [place] CKon 12-04-2018 CK enzyme act/vol 247 U/L High 30-170 [facility] Comment on above: Performed By: #### H EMDF, NH33, PT, CMP3, LIPA4, CK3, TROPN, LACT3, MDIFF, PCAL #### [facility] [address] [place], [place] CR Chest Portableon 12-04-19 19 CR Chest Portable Patient Name: ELIAS SHAH Diagnostic Radiology Exam Date/Time 12/04/2018 18:28:53 EST Exam CR Chest Portable Ordering Physician MD KAILYN, MISHA Acevedo Accession Number [id number] CPT4 Codes 80053 () Reason For Exam s/p NG tube [...] Transcribed Date and Time: 12/04/2018 6:38 Normal [facility] CR Chest Portable Patient Name: ELIAS SHAH Diagnostic Radiology Exam Date/Time 12/04/2018 17:25:31 EST Exam CR Chest Portable Ordering Physician KAY OMER MD, DONALD L Accession Number [id number] CPT4 Codes 33315 () Reason For Exam pt with altered [...] Transcribed Date and Time: 12/04/2018 5:33 Normal [facility] CT Abdomen/Pelvis w/o Contra ston 12-04-2018 CT Abdomen/Pelvis w/o Contrast Patient Name: ELIAS SHAH CT Exam Date/Time 12/04/2018 16:38:[address] Abdomen/Pelvis (No PO, No IV) Ordering Physician KAY OMER MD, DONALD L Accession Number [id number] CPT4 Codes 45754 (CT Abdomen/Pelvis (No PO, No IV)) Reason [...] Transcribed Date and Time: 12/04/2018 4:58 Normal [facility] CT Head or Brain w/o Contras ton 12-04-2018 CT Head or Brain w/o Contrast Patient Name: ELIAS SHAH CT Exam Date/Time 12/04/2018 16:38:[address] Head or Brain w/o Contrast Ordering Physician KAY OMER MD, DONALD L Accession Number [id number] CPT4 Codes 87357 () Reason For Exam pt with altered [...] Transcribed Date and Time: 12/04/2018 4:45 Normal [facility] Comp Metabolic Panelon 12-04 ALP enzyme act/vol 110 U/L Normal 38-126 [facility] Comment on above: Performed By: #### H EMDF, NH33, PT, CMP3, LIPA4, CK3, TROPN, LACT3, MDIFF, PCAL #### [facility] [address] [place] [address] ALT enzyme act/vol 19 U/L Normal 13-69 [facility] Comment on above: Performed By: #### H EMDF, NH33, PT, CMP3, LIPA4, CK3, TROPN, LACT3, MDIFF, PCAL #### [facility] [address] [place] [address] Anion gap molar conc 21 Normal [facility] Comment on above: Performed By: #### H EMDF, NH33, PT, CMP3, LIPA4, CK3, TROPN, LACT3, MDIFF, PCAL #### [address] [address] [address] [place], [place] AST enzyme act/vol 40 U/L Normal 15-46 [facility] Comment on above: Performed By: #### H EMDF, NH33, PT, CMP3, LIPA4, CK3, TROPN, LACT3, MDIFF, PCAL #### [address] [address] [address] [place], [place] Calcium mass conc 10.2 mg/dL Normal 8.4-10.4 [facility] Comment on above: Performed By: #### H EMDF, NH33, PT, CMP3, LIPA4, CK3, TROPN, LACT3, MDIFF, PCAL #### [address] [address] [address] [place], [place] CO2 molar conc 31 mmol/L High 22-30 [facility] Comment on above: Performed By: #### H EMDF, NH33, PT, CMP3, LIPA4, CK3, TROPN, LACT3, MDIFF, PCAL #### [address] [address] [address] [place], [place] Glucose mass conc 170 mg/dL High 70-100 [facility] Comment on above: Performed By: #### H EMDF, NH33, PT, CMP3, LIPA4, CK3, TROPN, LACT3, MDIFF, PCAL #### [address] [address] [address] [place], [place] Protein mass conc 9.1 g/dL High 6.3-8.2 [facility] Comment on above: Performed By: #### H EMDF, NH33, PT, CMP3, LIPA4, CK3, TROPN, LACT3, MDIFF, PCAL #### [address] [address] [address] [place], [place] Urea nitrogen mass conc 73 mg/dL High 7-20 S [facility] Comment on above: Performed By: #### H EMDF, NH33, PT, CMP3, LIPA4, CK3, TROPN, LACT3, MDIFF, PCAL #### [address] Bilirubin mass conc 1.0 mg/dL Normal 0.2-1.3 [facility] Comment on above: Performed By: #### H EMDF, NH33, PT, CMP3, LIPA4, CK3, TROPN, LACT3, MDIFF, PCAL #### [address] Creatinine mass conc 5.53 mg/dL High 0.52-1.25 [facility] Comment on above: Performed By: #### H EMDF, NH33, PT, CMP3, LIPA4, CK3, TROPN, LACT3, MDIFF, PCAL #### [address] GFR/1.73 sq M predicted among blacks MDRD vol rate/area (S/P/Bld) 12.1 mL/min/{1.73_m2} Normal >60 [facility] Comment on above: Performed By: #### H EMDF, NH33, PT, CMP3, LIPA4, CK3, TROPN, LACT3, MDIFF, PCAL #### [address] GFR/1.73 sq M predicted among non-blacks MDRD vol rate/area (S/P/Bld) 10.0 mL/min/{1.73_m2} Normal >60 [facility] Comment on above: Result Comment: Sour ce- MDRD equation with creatinine calibration to IDMS(NKDEP) eGFR not recommended for drug dose adjustment Performed By: #### H EMDF, NH33, PT, CMP3, LIPA4, CK3, TROPN, LACT3, MDIFF, PCAL #### [address] Albumin mass conc 4.8 g/dL Normal 3.5-5.0 [facility] Comment on above: Performed By: #### H EMDF, NH33, PT, CMP3, LIPA4, CK3, TROPN, LACT3, MDIFF, PCAL #### [address] Chloride molar conc 87 mmol/L Low 98-107 [facility] Comment on above: Performed By: #### H EMDF, NH33, PT, CMP3, LIPA4, CK3, TROPN, LACT3, MDIFF, PCAL #### [facility] [address] [place], [place] Potassium molar conc 3.4 mmol/L Low 3.5-5.1 [facility] Comment on above: Performed By: #### H EMDF, NH33, PT, CMP3, LIPA4, CK3, TROPN, LACT3, MDIFF, PCAL #### [facility] [address] [place], [place] Sodium molar conc 140 mmol/L Normal 135-145 [facility] Comment on above: Performed By: #### H EMDF, NH33, PT, CMP3, LIPA4, CK3, TROPN, LACT3, MDIFF, PCAL #### [facility] [address] [place], [place] ED Provider Noteon 9 Protein mass conc Emergency Department Encounter [facility]PT Patient: Elias Shah : 1940 [...] 2 and is in a-fib with rvr ELY SHOSHONE Elias Shah is a 78 y.o. male [...] ?C) -- 120 18 98 % 5' 10" (1.778 m) 200 lb (90.7 kg) GENERAL [...] eGFR 12.1 >60 mL/min EGFR IF NonAfrican Mauritanian 10.0 >60 mL/min Calcium 10.2 8.4 - [...] 0.8 (L) 1.1 - 4.5 10*3/uL [place] # 2.9 (H) 0.2 - 1.1 10*3/uL [...] KAY OMER MD, DONALD L Accession Number [id number] CPT4 Codes 87659 () Reason For Exam pt with altered [...] Physician MD AVINA MAZEN E Accession Number [id number] CPT4 Codes 12302 () Reason For Exam s/p NG tube [...] KAY OMER MD, DONALD L Accession Number [id number] CPT4 Codes 13534 () Reason For Exam pt with altered [...] KAY OMER MD, DONALD L Accession Number [id number] CPT4 Codes 93029 (CT Abdomen/Pelvis (No PO, No IV)) Reason [...] 0.9 % sodium chloride bolus ONCE Last JAN action: Stopped - by RADHIKA POOLE on [...] Solutions Stella Bosch MD 12/04/18 1900 Normal [facility] Hemogramon 12-04-2018 Erythrocyte distribution width Ratio (RBC) 15.5 % High 11.5-14.5 [facility] Comment on above: Performed By: #### H EMDF, NH33, PT, CMP3, LIPA4, CK3, TROPN, LACT3, MDIFF, PCAL #### [address] [address] Hematocrit Volume Fraction (Bld) 40.0 % Normal 40.0-52.0 [facility] Comment on above: Performed By: #### H EMDF, NH33, PT, CMP3, LIPA4, CK3, TROPN, LACT3, MDIFF, PCAL #### [address] [address] Hemoglobin mass conc (Bld) 13.2 g/dL Normal 13.0-18.0 [facility] Comment on above: Result Comment: repe ated Performed By: #### H EMDF, NH33, PT, CMP3, LIPA4, CK3, TROPN, LACT3, MDIFF, PCAL #### [address] MCH Entitic mass (RBC) 28.3 pg Normal 26.0-34.0 [facility] Comment on above: Performed By: #### H EMDF, NH33, PT, CMP3, LIPA4, CK3, TROPN, LACT3, MDIFF, PCAL #### [address] MCHC mass conc (RBC) 33.1 % Normal 32.0-36.0 [facility] Comment on above: Performed By: #### H EMDF, NH33, PT, CMP3, LIPA4, CK3, TROPN, LACT3, MDIFF, PCAL #### [address] MCV Entitic volume (RBC) 85.6 fL Normal 80.0-98.0 [facility] Comment on above: Performed By: #### H EMDF, NH33, PT, CMP3, LIPA4, CK3, TROPN, LACT3, MDIFF, PCAL #### [address] Platelet mean volume Entitic volume (Bld) 8.8 fL Normal 7.4-10.4 [facility] Comment on above: Performed By: #### H EMDF, NH33, PT, CMP3, LIPA4, CK3, TROPN, LACT3, MDIFF, PCAL #### [address] Platelets #/vol (Bld) 236 10*3/uL Normal 140-440 [facility] Comment on above: Performed By: #### H EMDF, NH33, PT, CMP3, LIPA4, CK3, TROPN, LACT3, MDIFF, PCAL #### [address] RBC #/vol (Bld) 4.67 10*6/uL Normal 4.40-5.90 [facility] Comment on above: Performed By: #### H EMDF, NH33, PT, CMP3, LIPA4, CK3, TROPN, LACT3, MDIFF, PCAL #### [address] WBC #/vol (Bld) 13.6 10*3/uL High 3.6-10.7 [facility] Comment on above: Performed By: #### H EMDF, NH33, PT, CMP3, LIPA4, CK3, TROPN, LACT3, MDIFF, PCAL #### [address] Hemogram w/ Autodiffon 12-04 Erythrocyte distribution width Ratio (RBC) 15.2 % High 11.5-14.5 [facility] Comment on above: Performed By: #### H EMDF, NH33, PT, CMP3, LIPA4, CK3, TROPN, LACT3, MDIFF, PCAL #### [address] Hematocrit Volume Fraction (Bld) 48.2 % Normal 40.0-52.0 [facility] Comment on above: Performed By: #### H EMDF, NH33, PT, CMP3, LIPA4, CK3, TROPN, LACT3, MDIFF, PCAL #### [address] Hemoglobin mass conc (Bld) 15.7 g/dL Normal 13.0-18.0 [facility] Comment on above: Performed By: #### H EMDF, NH33, PT, CMP3, LIPA4, CK3, TROPN, LACT3, MDIFF, PCAL #### [address] MCH Entitic mass (RBC) 28.2 pg Normal 26.0-34.0 [facility] Comment on above: Performed By: #### H EMDF, NH33, PT, CMP3, LIPA4, CK3, TROPN, LACT3, MDIFF, PCAL #### [address] MCHC mass conc (RBC) 32.6 % Normal 32.0-36.0 [facility] Comment on above: Performed By: #### H EMDF, NH33, PT, CMP3, LIPA4, CK3, TROPN, LACT3, MDIFF, PCAL #### [address] MCV Entitic volume (RBC) 86.6 fL Normal 80.0-98.0 [facility] Comment on above: Performed By: #### H EMDF, NH33, PT, CMP3, LIPA4, CK3, TROPN, LACT3, MDIFF, PCAL #### [address] Platelet mean volume Entitic volume (Bld) 9.3 fL Normal 7.4-10.4 [facility] Comment on above: Performed By: #### H EMDF, NH33, PT, CMP3, LIPA4, CK3, TROPN, LACT3, MDIFF, PCAL #### [address] Platelets #/vol (Bld) 320 10*3/uL Normal 140-440 [facility] Comment on above: Performed By: #### H EMDF, NH33, PT, CMP3, LIPA4, CK3, TROPN, LACT3, MDIFF, PCAL #### [address] RBC #/vol (Bld) 5.57 10*6/uL Normal 4.40-5.90 [facility] Comment on above: Performed By: #### H EMDF, NH33, PT, CMP3, LIPA4, CK3, TROPN, LACT3, MDIFF, PCAL #### [address] WBC #/vol (Bld) 15.2 10*3/uL High 3.6-10.7 [facility] Comment on above: Performed By: #### H EMDF, NH33, PT, CMP3, LIPA4, CK3, TROPN, LACT3, MDIFF, PCAL #### [address] Lactic Acidon 12-04-2018 Lactate molar conc 1.6 mmol/L Normal 0.7-2.0 [facility] Comment on above: Performed By: #### H EMDF, NH33, PT, CMP3, LIPA4, CK3, TROPN, LACT3, MDIFF, PCAL #### [address] Lactate molar conc 3.5 mmol/L Critically high 0.7-2.0 S [facility] Comment on above: Result Comment: Repe ated Performed By: #### H EMDF, NH33, PT, CMP3, LIPA4, CK3, TROPN, LACT3, MDIFF, PCAL #### [address] [address] [place], [place] Lipaseon 12-04-2018 Lipase enzyme act/vol 257 U/L Normal 23-300 [facility] Comment on above: Performed By: #### H EMDF, NH33, PT, CMP3, LIPA4, CK3, TROPN, LACT3, MDIFF, PCAL #### [address] Manual Diffon 12-04-2018 Abs Neutrophile Cnt 11.6 10*3/uL High 2.2-8.2 [facility] Comment on above: Performed By: #### H EMDF, NH33, PT, CMP3, LIPA4, CK3, TROPN, LACT3, MDIFF, PCAL #### [address] Anisocytosis Ql (Bld) Slight Normal [facility] Comment on above: Performed By: #### H EMDF, NH33, PT, CMP3, LIPA4, CK3, TROPN, LACT3, MDIFF, PCAL #### [address] Lymphocytes #/vol (Bld) 0.8 10*3/uL Low 1.1-4.5 [facility] Comment on above: Performed By: #### H EMDF, NH33, PT, CMP3, LIPA4, CK3, TROPN, LACT3, MDIFF, PCAL #### [address] Lymphocytes/100 WBC (Bld) 5 % Low 20-40 [facility] Comment on above: Performed By: #### H EMDF, NH33, PT, CMP3, LIPA4, CK3, TROPN, LACT3, MDIFF, PCAL #### [address] Monocytes #/vol (Bld) 2.9 10*3/uL High 0.2-1.1 [facility] Comment on above: Performed By: #### H EMDF, NH33, PT, CMP3, LIPA4, CK3, TROPN, LACT3, MDIFF, PCAL #### [address] [address] [place], [place] Monocytes/100 WBC (Bld) 19 % High 2-10 [facility] Comment on above: Performed By: #### H EMDF, NH33, PT, CMP3, LIPA4, CK3, TROPN, LACT3, MDIFF, PCAL #### [address] RBC morphology finding Nom (Bld) Normal Normal [facility] Comment on above: Performed By: #### H EMDF, NH33, PT, CMP3, LIPA4, CK3, TROPN, LACT3, MDIFF, PCAL #### [address] Seg Neutrophils 76 % Normal 40-80 [facility] Comment on above: Performed By: #### H EMDF, NH33, PT, CMP3, LIPA4, CK3, TROPN, LACT3, MDIFF, PCAL #### [address] Abs Baso Cnt 0.0 10*3/uL Normal 0.0-0.2 [facility] Comment on above: Performed By: #### H EMDF, NH33, PT, CMP3, LIPA4, CK3, TROPN, LACT3, MDIFF, PCAL #### [address] Bands 0 % Normal 0-3 [facility] Comment on above: Performed By: #### H EMDF, NH33, PT, CMP3, LIPA4, CK3, TROPN, LACT3, MDIFF, PCAL #### [address] Basophils/100 WBC (Bld) 0 % Normal 0-2 [facility] Comment on above: Performed By: #### H EMDF, NH33, PT, CMP3, LIPA4, CK3, TROPN, LACT3, MDIFF, PCAL #### [address] Cells counted 100 Normal [facility] Comment on above: Performed By: #### H EMDF, NH33, PT, CMP3, LIPA4, CK3, TROPN, LACT3, MDIFF, PCAL #### [address] Eosinophils #/vol (Bld) 0.0 10*3/uL Normal 0.0-0.5 [facility] Comment on above: Performed By: #### H EMDF, NH33, PT, CMP3, LIPA4, CK3, TROPN, LACT3, MDIFF, PCAL #### [address] Eosinophils/100 WBC (Bld) 0 % Low 1-6 [facility] Comment on above: Performed By: #### H EMDF, NH33, PT, CMP3, LIPA4, CK3, TROPN, LACT3, MDIFF, PCAL #### [address] Procalcitoninon 12-04-2018 Protein mass conc 0.79 ng/mL Abnormal <0.10 [facility] Comment on above: Performed By: #### H EMDF, NH33, PT, CMP3, LIPA4, CK3, TROPN, LACT3, MDIFF, PCAL #### [address] Interpretation See Below Normal [facility] Comment on above: Result Comment: PCT <0.50 = Low risk of severe sepsis and/or septic shock. PCT >2.00 = High risk of severe sepsis and/or septic shock. Performed By: #### H EMDF, NH33, PT, CMP3, LIPA4, CK3, TROPN, LACT3, MDIFF, PCAL #### [address] Prothrombin Timeon 9 INR Coag RelTime (PPP) 1.2 High 0.9-1.1 [facility] Comment on above: Result Comment: Gonzalo [...] LIPA4, CK3, TROPN, LACT3, MDIFF, PCAL #### [address] [address] Prothrombin time (PT) Coag time (PPP) 11.9 s Normal 9.0-12.0 [facility] Comment on above: Result Comment: . Performed By: #### H EMDF, NH33, PT, CMP3, LIPA4, CK3, TROPN, LACT3, MDIFF, PCAL #### [address] [address] Surgical Pathologyon 019 Surgical Pathology [id number] [facility] 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 MARGINS: UNREMARKABLE. PORTIONS OF FIBROADIPOSE, CONSISTENT WITH HERNIA SAC. NEGATIVE FOR MALIGNANCY. CO/JAF Signature> RANDAL GAN M.D. CLINICAL INFORMATION: Not provided SPECIMEN: HERNIA , and small bowel GROSS DESCRIPTION: Hernia sac and small bowel" Received in formalin is a length of [...] of hemorrhage or friability are identified. Multiple appliance service representative sections of the specimen are submitted [...] characteristics determined by the clinical laboratories of [facility]. They have not been cleared by the [...] negativity on decalcified specimens. Professional Performing Location: [place] [address]. DEPARTMENT OF PATHOLOGY AND LABORATORY MEDICINE [place], [place] [address] Normal [facility] TS GELon 12-04-2018 TS GEL ABO Group: O Rh, Gel: POS Antibody Screen Gel: NEG Normal [facility] Comment on above: Performed By: #### H EMDF, NH33, PT, CMP3, LIPA4, CK3, TROPN, LACT3, MDIFF, PCAL #### [address] [address] Troponin Ion 12-04-2018 Troponin I.cardiac mass conc 0.947 ng/mL High 0.000-0.034 [facility] Comment on above: Result Comment: 0.04 6 - 0.400 = Indeterminate > 0.400 = Consider Myocardial Injury Performed By: #### H EMDF, NH33, PT, CMP3, LIPA4, CK3, TROPN, LACT3, MDIFF, PCAL #### [address] [address] No Panel Information Influenza Types A,B Direct FA (RYLAN) [facility] Work Phone: RSV Ag EIA RSV Ag Immune stain Ql (Tiss) [facility] Work Phone: Vital Signs Date Time Vital Sign Value Performing Clinician Faci lity 08-24-2025 11:42-0400 Body temperature 96.3 [degF] Dr. Geoffrey Garza MD Work Phone: [facility] 08-24-2025 11:42-0400 Diastolic blood pressure 69 mm[Hg] Dr. Geoffrey Garza MD Work Phone: [phone] [place] [address] 08-24-2025 11:42-0400 Heart rate 87 /min Dr. Geoffrey Garza MD Work Phone: [phone] [place] [address] 08-24-2025 11:42-0400 Respiratory rate 14 /min Dr. Geoffrey Garza MD Work Phone: [phone] [address] 08-24-2025 11:42-0400 SaO2% (BldA) [Mass fraction] 98 % Dr. Geoffrey Garza MD Work Phone: 1([phone] [place] [address] 08-24-2025 11:42-0400 Systolic blood pressure 128 mm[Hg] Dr. Geoffrey Garza MD Work Phone: 6([phone] [address] 08-24-2025 09:50-0400 Body height 175.[address] Geoffrey Garza MD Work Phone: 1([phone] [place] [address] 08-24-2025 09:50-0400 Body mass index (BMI) [Ratio] 27 kg/m2 Dr. Geoffrey Garza MD Work Phone: [phone] [place] [address] 08-24-2025 09:50-0400 Body weight [address] Geoffrey Garza MD Work Phone: [facility] 08-24-2025 08:50-0400 Body temperature 97.3 [degF] Dr. Geoffrey Garza MD Work Phone: [facility] 08-24-2025 08:50-0400 Body weight 90.[address] Geoffrey Garza MD Work Phone: [facility] 08-24-2025 08:50-0400 Diastolic blood pressure 64 mm[Hg] Dr. Geoffrey Garza MD Work Phone: [facility] 08-24-2025 08:50-0400 Heart rate 98 /min Dr. Geoffrey Garza MD Work Phone: [facility] 08-24-2025 08:50-0400 Respiratory rate 14 /min Dr. Geoffrey Garza MD Work Phone: [facility] 08-24-2025 08:50-0400 SaO2% (BldA) [Mass fraction] 97 % Dr. Geoffrey Garza MD Work Phone: [facility] 08-24-2025 08:50-0400 Systolic blood pressure 111 mm[Hg] Dr. Geoffrey Garza MD Work Phone: [facility] 08-08-2025 14:06-0400 Body temperature 98 [degF] Dr. Geoffrey Garza MD Work Phone: [facility] 08-08-2025 14:06-0400 Diastolic blood pressure 65 mm[Hg] Dr. Geoffrey Garza MD Work Phone: [facility] 08-08-2025 14:06-0400 Heart rate 84 /min Dr. Geoffrey Garza MD Work Phone: [facility] 08-08-2025 14:06-0400 Respiratory rate 16 /min Dr. Geoffrey Garza MD Work Phone: [facility] 08-08-2025 14:06-0400 SaO2% (BldA) [Mass fraction] 100 % Dr. Geoffrey Garza MD Work Phone: [facility] 08-08-2025 14:06-0400 Systolic blood pressure 137 mm[Hg] Dr. Geoffrey Garza MD Work Phone: [facility] 08-07-2025 11:20-0400 Body height 175.[address] Geoffrey Garza MD Work Phone: [facility] 08-07-2025 11:20-0400 Body weight 91.[address] Geoffrey Garza MD Work Phone: 2(198)[phone] [place] [address] 08-07-2025 08:08-0400 Body temperature 97.3 [degF] Dr. Geoffrey Garza MD Work Phone: [facility] 08-07-2025 08:08-0400 Diastolic blood pressure 92 mm[Hg] Dr. Geoffrey Garza MD Work Phone: 1(996)711-365738 [address] 08-07-2025 08:08-0400 Heart rate 111 /min Dr. Geoffrey Garza MD Work Phone: 1(396)113-280638 [place] [address] 08-07-2025 08:08-0400 Respiratory rate 17 /min Dr. Geoffrey Garza MD Work Phone: 0(769)033-288338 [place] [address] 08-07-2025 08:08-0400 SaO2% (BldA) [Mass fraction] 98 % Dr. Geoffrey Garza MD Work Phone: 2(090)949-562237 [place] [address] 08-07-2025 08:08-0400 Systolic blood pressure 135 mm[Hg] Dr. Geoffrey Garza MD Work Phone: 4(838)984-222038 [place] [address] 08-04-2025 17:53-0400 Body height 175.[address] Geoffrey Garza MD Work Phone: 7(793)923-197038 [place] [address] 08-04-2025 17:53-0400 Body mass index (BMI) [Ratio] 29.7 kg/m2 Dr. Geoffrey Garza MD Work Phone: 0(182)255-405537 [place] [address] 08-04-2025 17:53-0400 Body weight 91.[address] Geoffrey Garza MD Work Phone: 8(432)004-552338 [address] 08-04-2025 16:43-0400 Body temperature 97.9 [degF] Dr. Geoffrey Garza MD Work Phone: [facility] 08-04-2025 16:43-0400 Diastolic blood pressure 71 mm[Hg] Dr. Geoffrey Garza MD Work Phone: [facility] 08-04-2025 16:43-0400 Heart rate 89 /min Dr. Geoffrey Garza MD Work Phone: [facility] 08-04-2025 16:43-0400 Respiratory rate 18 /min Dr. Geoffrey Garza MD Work Phone: [facility] 08-04-2025 16:43-0400 SaO2% (BldA) [Mass fraction] 97 % Dr. Geoffrey Garza MD Work Phone: 5(523)113-937637 [place] [address] 08-04-2025 16:43-0400 Systolic blood pressure 125 mm[Hg] Dr. Geoffrey Garza MD Work Phone: 4(065)340-111838 [place] [address] 08-04-2025 14:29-0400 Diastolic blood pressure 64 mm[Hg] Dr. Geoffrey Garza MD Work Phone: [facility] 08-04-2025 14:29-0400 Heart rate 92 /min Dr. Geoffrey Garza MD Work Phone: 6(275)405-466537 [place] [address] 08-04-2025 14:29-0400 Respiratory rate 19 /min Dr. Geoffrey Garza MD Work Phone: 7(366)661-393137 [place] [address] 08-04-2025 14:29-0400 SaO2% (BldA) [Mass fraction] 96 % Dr. Geoffrey Garza MD Work Phone: [facility] 08-04-2025 14:29-0400 Systolic blood pressure 115 mm[Hg] Dr. Geoffrey Garza MD Work Phone: 8(322)254-749137 [place] [address] 08-04-2025 11:43-0400 Body height 175.[address] Geoffrey Garza MD Work Phone: 2(605)189-956937 [place] [address] 08-04-2025 11:43-0400 Body mass index (BMI) [Ratio] 29.7 kg/m2 Dr. Geoffrey Garza MD Work Phone: 4(493)959-548137 [place] [address] 08-04-2025 11:43-0400 Body temperature 98.5 [degF] Dr. Geoffrey Garza MD Work Phone: [facility] 08-04-2025 11:43-0400 Body weight 91.[address] Geoffrey Garza MD Work Phone: [facility] 08-02-2025 07:05-0400 Body height 175.[address] Geoffrey Garza MD Work Phone: [facility] 08-02-2025 07:05-0400 Body weight 94.[address] Geoffrey Garza MD Work Phone: [facility] 08-01-2025 15:02-0400 Body temperature 99.3 [degF] Dr. Geoffrey Garza MD Work Phone: [facility] 08-01-2025 15:02-0400 Body weight 92.[address] Geoffrey Garza MD Work Phone: [facility] 08-01-2025 15:02-0400 Diastolic blood pressure 55 mm[Hg] Dr. Geoffrey Garza MD Work Phone: [facility] 08-01-2025 15:02-0400 Heart rate 69 /min Dr. Geoffrey Garza MD Work Phone: [facility] 08-01-2025 15:02-0400 Respiratory rate 14 /min Dr. Geoffrey Garza MD Work Phone: [facility] 08-01-2025 15:02-0400 SaO2% (BldA) [Mass fraction] 96 % Dr. Geoffrey Garza MD Work Phone: [facility] 08-01-2025 15:02-0400 Systolic blood pressure 124 mm[Hg] Dr. Geoffrey Garza MD Work Phone: [facility] 08-01-2025 08:29-0400 Body mass index (BMI) [Ratio] 30.8 kg/m2 Dr. Geoffrey Garza MD Work Phone: [facility] 07-27-2025 20:22-0400 Body temperature 98.8 [degF] Dr. Geoffrey Garza MD Work Phone: [facility] 07-27-2025 20:22-0400 Diastolic blood pressure 75 mm[Hg] Dr. Geoffrey Garza MD Work Phone: [facility] 07-27-2025 20:22-0400 Heart rate 73 /min Dr. Geoffrey Garza MD Work Phone: [facility] 07-27-2025 20:22-0400 Respiratory rate 21 /min Dr. Geoffrey Garza MD Work Phone: 2(475)016-718638 [place] [address] 07-27-2025 20:22-0400 SaO2% (BldA) [Mass fraction] 95 % Dr. Geoffrey Garza MD Work Phone: 8(027)832-856938 [place] [address] 07-27-2025 20:22-0400 Systolic blood pressure 163 mm[Hg] Dr. Geoffrey Garza MD Work Phone: [facility] 07-27-2025 14:22-0400 Body height 175.[address] Geoffrey Garza MD Work Phone: [facility] 07-27-2025 14:22-0400 Body mass index (BMI) [Ratio] 26.9 kg/m2 Dr. Geoffrey Garza MD Work Phone: [facility] 07-27-2025 14:22-0400 Body weight 82.[address] Geoffrey Garza MD Work Phone: [facility] 06-22-2025 10:01-0400 Body height 175.[address] Geoffrey Garza MD Work Phone: [facility] 06-22-2025 10:01-0400 Body mass index (BMI) [Ratio] 29.9 kg/m2 Dr. Geoffrey Garza MD Work Phone: [facility] 06-22-2025 10:01-0400 Body weight 92.[address] Geoffrey Garza MD Work Phone: [facility] 06-22-2025 10:01-0400 Diastolic blood pressure 76 mm[Hg] Dr. Geoffrey Garza MD Work Phone: [facility] 06-22-2025 10:01-0400 Heart rate 65 /min Dr. Geoffrey Garza MD Work Phone: [facility] 06-22-2025 10:01-0400 Respiratory rate 18 /min Dr. Geoffrey Garza MD Work Phone: [facility] 06-22-2025 10:01-0400 Systolic blood pressure 119 mm[Hg] Dr. Geoffrey Garza MD Work Phone: [facility] 05-22-2025 10:44-0400 Body height 175.[address] Geoffrey Garza MD Work Phone: 9(992)237-883537 [place] [address] 05-22-2025 10:44-0400 Body mass index (BMI) [Ratio] 29.6 kg/m2 Dr. Geoffrey Garza MD Work Phone: [facility] 05-22-2025 10:44-0400 Body temperature 98.2 [degF] Dr. Geoffrey Garza MD Work Phone: [facility] 05-22-2025 10:44-0400 Body weight 90.[address] Geoffrey Garza MD Work Phone: [facility] 05-22-2025 10:44-0400 Diastolic blood pressure 65 mm[Hg] Dr. Geoffrey Garza MD Work Phone: [facility] 05-22-2025 10:44-0400 Heart rate 59 /min Dr. Geoffrey Garza MD Work Phone: [facility] 05-22-2025 10:44-0400 Respiratory rate 16 /min Dr. Geoffrey Garza MD Work Phone: [facility] 05-22-2025 10:44-0400 SaO2% (BldA) [Mass fraction] 95 % Dr. Geoffrey Garza MD Work Phone: [facility] 05-22-2025 10:44-0400 Systolic blood pressure 160 mm[Hg] Dr. Geoffrey Garza MD Work Phone: [facility] 07-13-2023 14:42-0400 Body height 175.26 cm [facility] 07-13-2023 14:42-0400 Body mass index (BMI) [Ratio] 29.5 kg/m2 [facility] 07-13-2023 14:42-0400 Body temperature 97.5 [degF] [facility] 07-13-2023 14:42-0400 Body weight 90.71 kg [facility] 07-13-2023 14:42-0400 Diastolic blood pressure 75 mm[Hg] [facility] 07-13-2023 14:42-0400 Heart rate 82 /min [facility] 07-13-2023 14:42-0400 Respiratory rate 16 /min [facility] 07-13-2023 14:42-0400 SaO2% (BldA) [Mass fraction] 97 % [facility] 07-13-2023 14:42-0400 Systolic blood pressure 154 mm[Hg] [facility] 03-18-2023 14:00-0400 Body mass index (BMI) [Ratio] 29.2 kg/m2 [facility] 03-18-2023 14:00-0400 Body weight 89.89 kg [facility] 03-18-2023 14:00-0400 Diastolic blood pressure 73 mm[Hg] [facility] 03-18-2023 14:00-0400 Heart rate 60 /min [facility] 03-18-2023 14:00-0400 Respiratory rate 18 /min [facility] 03-18-2023 14:00-0400 Systolic blood pressure 156 mm[Hg] [facility] 09-23-2022 10:21-0400 [facility] Work Phone: 09-23-2022 10:21-0400 Body mass index (BMI) [Ratio] 29.5 kg/m2 [facility] Work Phone: 09-23-2022 10:21-0400 Body weight 90.71 kg [facility] Work Phone: 09-23-2022 10:21-0400 Diastolic blood pressure 6 mm[Hg] [facility] Work Phone: 09-23-2022 10:21-0400 Heart rate 59 /min [facility] Work Phone: 09-23-2022 10:21-0400 Respiratory rate 18 /min [facility] Work Phone: 09-23-2022 10:21-0400 SaO2% (BldA) [Mass fraction] 96 % [facility] Work Phone: 09-23-2022 10:21-0400 Systolic blood pressure 137 mm[Hg] [facility] Work Phone: 07-14-2022 14:28-0400 Body height 175.26 cm [facility] Work Phone: 07-14-2022 14:22-0400 Body mass index (BMI) [Ratio] 29.3 kg/m2 [facility] Work Phone: 07-14-2022 14:22-0400 Body temperature 98.6 [degF] [facility] Work Phone: 07-14-2022 14:22-0400 Body weight 90.26 kg MD [facility] Work Phone: 07-14-2022 14:22-0400 Diastolic blood pressure 65 mm[Hg] [facility] Work Phone: 07-14-2022 14:22-0400 Heart rate 62 /min [facility] Work Phone: 07-14-2022 14:22-0400 Respiratory rate 15 /min [facility] Work Phone: 07-14-2022 14:22-0400 SaO2% (BldA) [Mass fraction] 94 % [facility] Work Phone: 07-14-2022 14:22-0400 Systolic blood pressure 162 mm[Hg] [facility] Work Phone: 01-14-2022 11:57-0500 Body height 175.26 cm [facility] Work Phone: 01-14-2022 11:57-0500 Body weight 93.89 kg [facility] Work Phone: 01-14-2022 11:57-0500 Diastolic blood pressure 67 mm[Hg] [facility] Work Phone: 01-14-2022 11:57-0500 Heart rate 55 /min [facility] Work Phone: 01-14-2022 11:57-0500 Respiratory rate 18 /min [facility] Work Phone: 01-14-2022 11:57-0500 SaO2% (BldA) [Mass fraction] 96 % [facility] Work Phone: 01-14-2022 11:57-0500 Systolic blood pressure 172 mm[Hg] [facility] Work Phone: 01-13-2022 14:12-0500 Body mass index (BMI) [Ratio] 30.6 kg/m2 [facility] Work Phone: 01-13-2022 14:12-0500 Body temperature 98.2 [degF] [facility] Work Phone: 01-13-2022 14:12-0500 Body weight 94 kg [facility] Work Phone: 01-13-2022 14:12-0500 Diastolic blood pressure 78 mm[Hg] [facility] Work Phone: 01-13-2022 14:12-0500 Heart rate 57 /min [facility] Work Phone: 01-13-2022 14:12-0500 Respiratory rate 16 /min [facility] Work Phone: 01-13-2022 14:12-0500 SaO2% (BldA) [Mass fraction] 96 % [facility] Work Phone: 01-13-2022 14:12-0500 Systolic blood pressure 159 mm[Hg] [facility] Work Phone: 06-27-2021 14:22-0400 Body mass index (BMI) [Ratio] 30.6 kg/m2 Dr. Geoffrey Garza MD Work Phone: [facility] 06-27-2021 14:22-0400 Body mass index (BMI) [Ratio] 30.6 kg/m2 [facility] Work Phone: 06-14-2021 14:45-0400 Body mass index (BMI) [Ratio] 29.5 kg/m2 [facility] Work Phone: 02-18-2021 14:45-0400 Body mass index (BMI) [Ratio] 29.8 kg/m2 [facility] Work Phone: Encounters Encounter Date Encounter Type Care Provider Facility Start: 09-25-2025 ambulatory Valdez Castillo OLS Facil ity:[facility] Start: 09-20-2025 ambulatory Lesley Avila Facility :[facility] Start: 09-20-2025 End: 09-23-2025 Evaluation and management of inpatient Husam Khan Facility:[facility] Start: 09-19-2025 ambulatory Lesley Avila Facility :[facility] Start: 09-18-2025 End: 09-18-2025 ambulatory Valdez Yen Castillo OLS Facility:[facility] Start: 09-11-2025 ambulatory Valdez Castillo OLS Facil ity:[facility] Start: 09-06-2025 ambulatory Efnicolmanifortunato Bird OLS Fa cility:[facility] Start: 09-01-2025 ambulatory Channing Mckeon Facility:[facility] Start: 09-01-2025 End: 09-01-2025 ambulatory Venecia Villar Facility:[facility] Start: 08-30-2025 ambulatory Efmikaela Pang OLS Fa cility:[facility] Start: 08-25-2025 ambulatory Serene BACON Fac ility:[facility] Start: 08-24-2025 End: 08-24-2025 Venecia MCCRAY -[facility] Work Phone: Start: 08-24-2025 End: 08-24-[address] Geoffrey Garza MD Work Phone: -[facility] Start: 08-23-2025 ambulatory Efmikaela Pang OLS Fa cility:[facility] Start: 08-23-2025 Trixie Taylor Start: 08-16-2025 ambulatory Trixie Pang OLS Fa cility:[facility] Start: 08-16-2025 Trixie Taylor Start: 08-11-2025 End: 08-11-[address] Geoffrey Garza MD Work Phone: -Cardiovascular Services Start: 08-11-2025 End: 08-11-2025 Dr. Kenan Santamaria MD -[facility] Start: 08-11-2025 End: 08-11-2025 ambulatory La MCCRAY Facility:[facility] Start: 08-09-2025 ambulatory Trixie BACON Fa cility:[facility] Start: 08-09-2025 Trixie Pang MD [facility] [place] Start: 08-08-2025 Non-patient / Non-visit Dr. Pedro Banegas MD -[facility] Work Phone: Start: 08-08-2025 Dr. Pedro Banegas MD [facility] Work Phone: Start: 08-07-2025 Non-patient / Non-visit Dr. Pedro Banegas MD -[facility] Work Phone: Start: 08-07-2025 Dr. Pedro Banegas MD [facility] Work Phone: Start: 08-06-2025 Non-patient / Non-visit Dr. Pedro Banegas MD -[facility] Work Phone: Start: 08-06-2025 Dr. Pedro Banegas MD [facility] Work Phone: Start: 08-05-2025 Non-patient / Non-visit Dr. Alannah Adams MD -[facility] Work Phone: Start: 08-05-2025 Dr. Jim Adams MD -[facility] Work Phone: Start: 08-05-2025 ambulatory Morgan Mendzoa ility:[facility] Start: 08-05-2025 End: 08-08-2025 Evaluation and management of inpatient Dr. Pedro Banegas MD -[facility] Work Phone: Start: 08-05-2025 End: 08-08-2025 Dr. Pedro Banegas MD -[facility] Work Phone: Start: 08-04-2025 ambulatory Morgan Mendoza ility:[facility] Start: 08-04-2025 Evaluation and management of inpatient Dr. Morgan Dubon DO -[facility] Work Phone: Start: 08-04-2025 Non-patient / Non-visit Dr. Migue Evangel[facility] Work Phone: Start: 08-04-[address] Leroy Garza MD Work Phone: -[facility] 3 Start: 08-04-2025 Dr. Morgan Evangel[facility] Work Phone: Start: 08-04-2025 Emergency department patient visit Dr. Geoffrey Garza MD Work Phone: -Emergency Department Work Phone: Start: 08-02-2025 ambulatory Channing Mckeon Facility:[facility] Start: 08-02-2025 Non-patient / Non-visit Dr. Channing sanchez MD -[facility] Start: 08-02-2025 Dr. Channing Mckeon MD -[facility] Start: 08-02-2025 End: 08-02-2025 Admission to same day surgery center Dr. Channing Mckeon MD -Through Operator/Special Procedures Work Phone: Start: 08-02-2025 End: 08-02-2025 Dr. Channing Mckeon MD -Through [facility] Procedures Work Phone: Start: 08-02-2025 End: 08-02-[address] Geoffrey Garza MD Work Phone: -Through Operator/Special Procedures Start: 08-01-2025 End: 08-01-[address] Channing Mckeon MD -[facility] Work Phone: Start: 08-01-2025 End: 08-01-2025 Dr. Channing Mckeon MD -[facility] Work Phone: Start: 08-01-2025 End: 08-01-[address] Geoffrey Garza MD Work Phone: -[facility] Start: 07-27-2025 End: 07-27-2025 Dr. Ilana Medrano DO -Emergency Departme nt Work Phone: Start: 07-27-2025 End: 07-27-2025 Emergency department patient visit Dr. Geoffrey Garza MD Work Phone: -Emergency Department Work Phone: Start: 07-27-2025 Non-patient / Non-visit Dr. Channing sanchez MD -[facility] Start: 07-27-2025 End: 07-27-[address] Geoffrey Garza MD Work Phone: -Cardiovascular Services Start: 07-27-2025 End: 07-27-[address] Husam Khan MD -Cardiovascular Services Work Phone: Start: 07-27-2025 End: 07-27-2025 Dr. Channing Mckeon MD -[facility] Start: 07-26-2025 End: 07-27-[address] Geoffrey Garza MD Work Phone: -Laboratory Phy Office 3rd Flr Start: 07-26-2025 End: 07-26-[address] Husam Khan MD -Laboratory Phy Office 3rd Flr Start: 07-26-2025 End: 07-26-2025 Dr. Husam Khan MD -Laboratory Phy Offi ce 3rd Flr Start: 07-26-2025 End: 07-26-2025 ambulatory Husam Khan Facility:[facility] Start: 06-22-2025 End: 06-22-2025 Patient encounter procedure La MCCRAY -[facility] Work Phone: Start: 06-22-2025 End: 06-22-2025 La MCCRAY -[facility] Work Phone: Start: 06-22-2025 End: 06-22-[address] Geoffrey Garza MD Work Phone: -[facility] Start: 05-22-2025 End: 05-22-[address] Geoffrey Garza MD -[facility] Work Phone: Start: 05-22-2025 End: 05-22-2025 Dr. Geoffrey Garza MD -[facility] Work Phone: Start: 05-22-2025 End: 05-22-[address] Geoffrey Garza MD Work Phone: -[facility] Start: 05-04-[address] Andrea Garza MD -[facility] Start: 05-04-2025 Dr. Geoffrey malone MD -[facility] Start: 05-04-2025 ambulatory Geoffrey Walker ty:[facility] Start: 12-29-2024 End: 12-29-[address] Husam Khan MD -Laboratory Phy Office 3rd Flr Start: 12-29-2024 End: 12-29-2024 ambulatory Husam Khan Facility:[facility] Start: 09-02-2023 End: 09-02-[address] Husam Khan Work Phone: [facility] Work Phone: Start: 09-02-2023 End: 09-02-[address] Husam Khan Work Phone: [facility]-Laboratory Work Phone: Start: 07-13-2023 End: 07-13-2023 Patient encounter procedure MD Husam BACON [facility] Work Phone: Start: 07-07-2023 End: 07-07-2023 ambulatory MD Husam BACON [facility] Work Phone: Start: 07-07-2023 End: 07-07-2023 Patient encounter procedure MD Husam BACON [facility]-Laboratory Work Phone: Start: 06-25-2023 End: 06-25-2023 Patient encounter procedure MD Husam BACON [facility]-Laboratory, Phy Office 3rd Flr Start: 03-18-2023 End: 03-18-2023 Patient encounter procedure MD Husam BACON [facility] Work Phone: Start: 02-10-2023 End: 02-10-2023 ambulatory [facility] Work Phone: Start: 02-10-2023 End: 02-10-2023 Patient encounter procedure [facility]-Laboratory, Phy Office 3rd Flr Start: 12-25-2022 End: 12-25-2022 [facility] Start: 10-20-2022 End: 10-20-2022 ambulatory MD Weiner [facility] Work Phone: Start: 10-20-2022 End: 10-20-2022 Patient encounter procedure MD Weiner [facility]-Pulmonary Services/Neurology Start: 10-02-2022 Non-patient / Non-visit MD Weiner [facility] Start: 10-02-2022 End: 10-02-2022 ambulatory MD Weiner [facility] Work Phone: Start: 10-02-2022 End: 10-02-2022 Patient encounter procedure MD Weiner Bill [facility]-Cardiovascular Services Start: 09-23-2022 End: 09-23-2022 Patient encounter procedure MD Weiner Bill [facility] Start: 08-12-2022 End: 08-12-2022 ambulatory MD Weiner [facility] Work Phone: Start: 08-12-2022 End: 08-12-2022 Patient encounter procedure MD Weiner [facility]-Laboratory Start: 07-14-2022 End: 07-14-2022 Patient encounter procedure [facility] Start: 07-08-2022 End: 07-08-2022 ambulatory MD Husam Harrington [facility] Work Phone: Start: 07-08-2022 End: 07-08-2022 Patient encounter procedure MD Weiner [facility]-Laboratory Start: 06-19-2022 End: 06-19-2022 Patient encounter procedure [facility]-Laboratory, Phy Office 3rd Flr Start: 03-04-2022 End: 03-04-2022 Patient encounter procedure MD Weiner [facility]-Laboratory, Phy Office 3rd Flr Start: 01-14-2022 End: 01-14-2022 Patient encounter procedure MD Weiner Bill [facility] Start: 01-13-2022 End: 01-13-2022 Patient encounter procedure MD Weiner [facility] Start: 01-08-2022 Registered Recurring MD Weiner Bill [facility] Start: 11-11-2021 Patient encounter procedure MD Weiner [facility]Laboratory Start: 12-04-2018 Evaluation and management of inpatient [facility] Procedures Date Procedure Procedure Detail Performing [...] Work Phone: Start: 08-09-2025 Blood count smear rscp w/mnl difrntl wbc count Dr. Geoffrey [...] Work Phone: Start: 08-08-2025 Blood count smear rscp w/mnl difrntl wbc count Dr. Geoffrey [...] hematuria). per Dr. Wayne Rivers 07/04/19 @ [facility] Start: 06-23-2019 History of coronary artery bypass grafting History of coronary artery bypass surgery La MCCRAY Comment on above: CABG X2 with HARRINGTON to LAD, reverse SVG to ramus intermedius, and exclusion of left atrial appendage with 35 mm Atricure clip (pt poor anticoag candidate d/t hematuria). per Dr. Wayne Rivers 07/04/19 @ [facility] Start: 12-09-2018 Microscopic examinat ion of blood, culture VALDEZ LANDIS Comment on above: Order Comment: Speci men Source Comment:Blood Performed By: #### H EMDF, NH33, PT, CMP3, LIPA4, CK3, TROPN, LACT3, MDIFF, PCAL #### [address] [address] Influenza Types A,B Direct FA (RYLAN) MD Husam Khan Influenza Types A,B Direct FA (RYLAN) Respiratory syncytia l virus antigen assay MD Husam Khan Respiratory syncytia l virus antigen assay Urine culture Plan of Treatment Date Care Activity Detail Author Start: 08-24-2025 Ankle brachial pressure index [facility] Start: 08-24-2025 Administration of bl ood product [facility] Start: 08-24-2025 [facility] Start: 08-08-2025 Patient discharge [facility] Start: 08-08-2025 Inhalation therapy procedure [facility] Start: 08-06-2025 Bacteria identified in Blood by Culture Blood Culture [facility] [facility] Start: 08-06-2025 Blood culture Blood Culture [facility] Start: 08-06-2025 [facility] Start: 08-06-2025 Application of ice c ollar, cap or bag [facility] Start: 08-05-2025 Following clinical p athway protocol [facility] Start: 08-05-2025 Admission procedure [facility] Start: 08-04-2025 Ambulation without limitation [facility] Start: 08-04-2025 Assessment of risk o f venous thromboembolism [facility] Start: 08-04-2025 Insertion of cathete r into peripheral vein [facility] Start: 08-04-2025 Measuring intake and output [facility] Start: 08-04-2025 Providing care accor ding to standard [facility] Start: 08-04-2025 Referral for physical therapy [facility] Start: 08-04-2025 Referral to occupati onal therapist [facility] Start: 08-04-2025 Referral to service [facility] Start: 08-04-2025 [facility] Start: 08-04-2025 Following clinical p athway protocol [facility] Start: 08-04-2025 Verification routine [facility] Start: 08-04-2025 Admission procedure [facility] Start: 08-04-2025 Hospital admission, emergency, from emergency room, medical nature [facility] Start: 08-04-2025 [facility] Start: 08-02-2025 Introduction catheter aorta [facility] Start: 08-02-2025 Patient discharge [facility] Start: 07-27-2025 [facility] Start: 02-10-2023 Procedure [facility] Bilirubin measurement, urine [facility] Hemoglobin [Presence] in Urine [facility] Measurement of keton es in urine using dipstick [facility] Microscopic urinalysis [facility] Microscopic urinalysis [facility] Organism count, micr oscopic method [facility] Patient Education [facility] Work Phone: pH of Urine [facility] Procedure [facility] Specific gravity of Urine [facility] Urine blood test [facility] Urine dipstick for glucose [facility] Urine dipstick for l eukocyte esterase [facility] Urine dipstick for nitrite [facility] Urine dipstick for protein [facility] Urine examination [facility] Urine microscopy: ep ithelial cells [facility] Urine microscopy: ep ithelial cells [facility] Urine microscopy: red cells [facility] Urine Microscopy: white cells [facility] Urobilinogen [Presen ce] in Urine [facility] US Heart [facility] US Lower extremity artery [facility] White blood cell count [facility] Immunizations Immunization Date Immunization Notes Care Provider Fa cili 01-16-2021 [facility] 12-27-2020 [facility] Payers Date Payer Category Payer Medicare [id number] 2021 Private Health Insurance [id number] 2021 Self-pay [id number] 1940 Unknown [id number] 2.16.8 40.1.603785.3.579.2.668 Medicare Private Health Insurance Unknown [id number] 2.16.8 40.1.641026.3.579.2.462 Unknown [id number] 2.16.8 40.1.421263.3.579.2.462 Unknown [id number] 2.16.8 40.1.587800.3.579.2.462 Unknown [id number] 2.16.8 40.1.440034.3.579.2.462 Unknown [id number] 2.16.8 40.1.762795.3.579.2.462 Unknown [id number] 2.16.8 40.1.591642.3.579.2.462 Unknown [id number] 2.16.8 40.1.341812.3.579.2.462 Unknown [id number] 2.16.8 40.1.865026.3.579.2.462 Unknown [id number] 2.16.8 40.1.680692.3.579.2.462 Unknown [id number] 2.16.8 40.1.449320.3.579.2.462 Unknown [id number] 2.16.8 40.1.945591.3.579.2.462 Unknown [id number] 2.16.8 40.1.352058.3.579.2.462 Unknown [id number] 2.16.8 40.1.390941.3.579.2.462 Unknown [id number] 2.16.8 40.1.827171.3.579.2.462 Unknown [id number] 2.16.8 40.1.988198.3.579.2.462 Unknown [id number] 2.16.8 40.1.178449.3.579.2.462 Unknown [id number] 2.16.8 40.1.947571.3.579.2.462 Unknown [id number] 2.16.8 40.1.682600.3.579.2.462 Unknown [id number] 2.16.8 40.1.842379.3.579.2.462 Unknown [id number] 2.16.8 40.1.997039.3.579.2.462 Unknown [id number] 2.16.8 40.1.047979.3.579.2.462 Unknown [id number] 2.16.8 40.1.781288.3.579.2.462 Unknown [id number] 2.16.8 40.1.794168.3.579.2.462 Unknown [id number] 2.16.8 40.1.208539.3.579.2.462 Unknown [id number] 2.16.8 40.1.880065.3.579.2.462 Unknown [id number] 2.16.8 40.1.858005.3.579.2.462 Unknown [id number] 2.16.8 40.1.494957.3.579.2.462 Unknown [id number] 2.16.8 40.1.187977.3.579.2.462 Unknown [id number] 2.16.8 40.1.501051.3.579.2.462 Unknown [id number] 2.16.8 40.1.216036.3.579.2.462 Unknown [id number] 2.16.8 40.1.855968.3.579.2.462 Unknown [id number] 2.16.8 40.1.818479.3.579.2.462 Unknown [id number] 2.16.8 40.1.864348.3.579.2.462 Unknown [id number] 2.16.8 40.1.074139.3.579.2.462 Unknown [id number] 2.16.8 40.1.947638.3.579.2.462 Unknown [id number] 2.16.8 40.1.600679.3.579.2.462 Unknown [id number] 2.16.8 40.1.343369.3.579.2.462 Unknown [id number] 2.16.8 40.1.809475.3.579.2.462 Social History Date Type Detail Facility Start: 01-14-2022 End: 03-18-2023 Tobacco smoking status [facility] Unknown if ever smoked [facility] Start: 07-13-2019 Occasional [facility] Start: 07-13-2019 None [facility] Start: 07-14-2019 With Family [facility] Start: 07-13-2019 Non-smoker [facility] Start: 1940 Sex Assigned At Male [facility] Start: 03-18-2023 End: 08-04-2025 Tobacco smoking status NHIS Ex-smoker (finding) [facility] Sex [facility] Medical Equipment Procedure Code Equipment Code Equipment Origin al Text Equipment Identifier Dates ([id number] FDA Start: 08-02-2025 ([id number] FDA Start: 08-02-2025 Goals Date Patient Goal Desired Activity /State Functional Status Date Assessment Result Facility 08-08-2025 Functional status Chair;Bedpan [facility] Work Phone: 08-07-2025 Functional status Ambulates [facility] Work Phone: Mental Status Date Assessment Result Facility 08-24-2025 Cognitive function Voice/Name [facility] Work Phone: 08-08-2025 Cognitive function Voice/Name [facility] Work Phone: 08-07-2025 Cognitive function Voice/Name [facility] Work Phone: 08-04-2025 Cognitive function Level Of Cons ciousness Awake;Alert [facility] Work Phone: Clinical Notes 06-23-2019 to 09-23-2025 Note Date & Type Note Facility 09-23-2025 Note [facility] 08-08-2025 Discharge summary Note Date/Time August 08, 2025 12:44pm [facility] Medical Records Department [address] [place] [address] Discharge Summary 08/08/25 1239 MR#: [id number] Acct: [id number] Name: ELIAS SHAH Rep #:[id number] : 1940 85 From: Pedro Soliman PCP: Dr. Husam Khan MD Status:ADM I N Location: [place] [address] Providers Date of Admission: 08/05/25 Date of [...] physical therapy. 08/08: Pain is controlled, states 7?07/02 intensity. Patient discharged on oxycodone. OARRS reviewed. [...] 78.4 H, Lymph % (Auto) 8.0 L, Kings % (Auto) 10.9 H, Eos % (Auto) [...] mg-vit E 90 mg-zinc 40 mg-copper 1 ey-yvcdlm-vwkdyx capsule (PreserVision AREDS-2) 1 tab PO BID [...] % (Auto) 63.2, Lymph % (Auto)17.1 L, Kings % (Auto) 15.9 H, Eos % (Auto) [...] in before D/C Order can be placed): [facility] Facility Charges/Coding Visit Charges Inpatient E&M: 39853 Disch Hosp >30min 08/08/25 1244 <Electronically signed by Pedro Banegas MD> Cosigner Signature (if applicable): CC: Dr. Channing Mckeon MD; Dr. Pedro Banegas MD; Dr. Husam Khan MD~ Signed [facility] Work Phone: 1(946) 903-513309-16-2025 Discharge summary Author Pedro Banegas [facility] Note Date/Time August 08, 2025 12:39pm [facility] Medical Records Department [address] [place] [address] Transfer to [facility] Care MR#: [id number] Acct: [id number] Name: ELIAS SHAH Rep #:[id number] 0 : 1940 85 From: Pedro Soliman PCP: Dr. Husam Khan MD Status:ADM I N Certification of patient admission REQUIRED AT TIME OF ADMISSION. I CERTIFY THAT POST-HOSPITAL ECF SERVICES ARE REQUIRED TO BE GIVEN ON AN IN-PATIENT BASIS BECAUSE OF THE ABOVE NAMED PATIENT'S NEED FOR RESIDENTIAL CARE ON A CONTINUING BASIS FOR THE [...] 78.4 H, Lymph % (Auto) 8.0 L, Kings % (Auto) 10.9 H, Eos % (Auto) [...] in before D/C Order can be placed): [facility] Facility 08/08/25 1239 <Electronically signed by Pedro Banegas MD> Cosigner Signature (if applicable): CC: Dr. Morgan Dubon DO; Dr. Jim Adams MD; Dr. Husam Khan MD ~ [facility] Work Phone: 1(443) 376-167209-16-2025 Hospital Discharge instructionsAdditional Instructions Date of Discharge: 08/08/25[facility] Work Phone: 1(885) 532-493309-16-[address] [facility] Medical Records Department [address] [place] [address] Discharge Summary 08/08/25 1239 MR#: [id number] Acct: [id number] Name: ELIAS SHAH Rep #:[id number] : 1940 85 From: Pedro Soliman PCP: Dr. Husam Khan MD Status:ADM I N Location: [facility] PI908-6 Providers Date of Admission: 08/05/25 Date of [...] 78.4 H, Lymph % (Auto) 8.0 L, Kings % (Auto) 10.9 H, Eos % (Auto) [...] mg-vit E 90 mg-zinc 40 mg-copper 1 ib-qoyclg-tdwzes capsule (PreserVision AREDS-2) 1 tab PO BID [...] % (Auto) 63.2, Lymph % (Auto)17.1 L, Kings % (Auto) 15.9 H, Eos % (Auto) [...] in before D/C Order can be placed): [facility] Facility Charges/Coding Visit Charges Inpatient E&M: 45992 Disch Hosp >30min 08/08/25 1244 Cosigner Signature (if applicable): CC: Dr. Channing Mckeon MD; Dr. Pedro Banegas MD; Dr. Husam Khan MD~ Signed [facility]09-16-[address] [facility] Medical Records Department [address] [place] [address] Transfer to [facility] MR#: [id number] Acct: [id number] Name: ELIAS SHAH Rep #:[id number] : 1940 85 From: Pedro Soliman PCP: Dr. Husam Khan MD Status:ADM I N Certification of patient admission REQUIRED AT TIME OF ADMISSION. I CERTIFY THAT POST-HOSPITAL ECF SERVICES ARE REQUIRED TO BE GIVEN ON AN IN-PATIENT BASIS BECAUSE OF THE ABOVE NAMED PATIENT'S NEED FOR RESIDENTIAL CARE ON A CONTINUING BASIS FOR THE CONDITION(S) FOR WHICH HE/SHE WAS RECEIVING IN-PATIENT HOSPITAL SERVICES PRIOR TO HIS/HER TRANSFER TO THE F. 08/08/25 1239 Diet Diet Order/Speech Therapy: INPATIENT [...] 78.4 H, Lymph % (Auto) 8.0 L, Kings % (Auto) 10.9 H, Eos % (Auto) [...] in before D/C Order can be placed): [facility] Facility 08/08/25 1239 Cosigner Signature (if applicable): CC: Dr. Morgan Dubon DO; Dr. Jim Adams MD; Dr. Husam Khan MD ~ [facility]09-16-2025 [facility]09-15-2025 Progress note Author Pedro Banegas [facility] Note Date/Time August 07, 2025 2:01pm [facility] Medical Records Department [address] [place] [address] Progress Note - Hospitalist 08/07/25 1358 MR#: [id number] Acct: [id number] Name: ELIAS SHAH Rep #:[id number] 6 : 1940 85 From: Pedro Soliman PCP: Dr. Husam Khan MD Status:ADM I N Location: MS3 [id number] Reason for Visit Chief Complaint: Weakness and [...] 78.4 H, Lymph % (Auto) 8.0 L, Kings % (Auto) 10.9 H, Eos % (Auto) [...] Calcium 8.0 Charges/Coding Visit Charges Inpatient E&M: 95023 Subs Hosp L2 08/07/25 1401 <Electronically signed by Pedro Banegas MD> Cosigner Signature (if applicable): CC: ~ Signed [facility] Work Phone: 1(236) 881-486909-15-[address] [facility] Medical Records Department [address] [place] [address] Progress Note - Hospitalist 08/07/25 1358 MR#: [id number] Acct: [id number] Name: ELIAS SHAH Rep #:[id number] : 1940 85 From: Pedro Soliman PCP: Dr. Husam Khan MD Status:ADM I N Location: [place] [address] Reason for Visit Chief Complaint: Weakness and [...] 78.4 H, Lymph % (Auto) 8.0 L, Kings % (Auto) 10.9 H, Eos % (Auto) [...] Calcium 8.0 Charges/Coding Visit Charges Inpatient E&M: 66235 Subs Hosp L2 08/07/25 1401 Cosigner Signature (if applicable): CC: ~ Signed [facility]09-14-2025 Progress note Author Pedro Banegas [facility] Note Date/Time August 06, 2025 11:39am [facility] Medical Records Department [address] [place] [address] Progress Note - Hospitalist 08/06/25 0739 MR#: [id number] Acct: [id number] Name: ELIAS SHAH Rep #:[id number] : 1940 85 From: Pedro Soliman PCP: Dr. Husam Khan MD Status:ADM I N Location: [place] [address] Reason for Visit Chief Complaint: Weakness and [...] 78.4 H, Lymph % (Auto) 8.0 L, Kings % (Auto) 10.9 H, Eos % (Auto) [...] 78.4 H, Lymph % (Auto) 8.0 L, Kings % (Auto) 10.9 H, Eos % (Auto) [...] Calcium 8.0 Charges/Coding Visit Charges Inpatient E&M: 81917 Subs Hosp L2 08/06/25 1139 <Electronically signed by Pedro Banegas MD> Cosigner Signature (if applicable): CC: ~ Signed [facility] Work Phone: 1(479) 741-282609-14-[address] [facility] Medical Records Department [address] [place] [address] Progress Note - Hospitalist 08/06/25 0739 MR#: [id number] Acct: [id number] Name: ELIAS SHAH Rep #:[id number] : 1940 85 From: Pedro Soliman PCP: Dr. Husam Khan MD Status:ADM I N Location: [place] [address] Reason for Visit Chief Complaint: Weakness and [...] 78.4 H, Lymph % (Auto) 8.0 L, Kings % (Auto) 10.9 H, Eos % (Auto) [...] 78.4 H, Lymph % (Auto) 8.0 L, Kings % (Auto) 10.9 H, Eos % (Auto) [...] Calcium 8.0 Charges/Coding Visit Charges Inpatient E&M: 99796 Subs Hosp L2 08/06/25 1139 Cosigner Signature (if applicable): CC: ~ Signed [facility]09-13-2025 Progress note Author Jim Adams [facility] Note Date/Time August 05, 2025 3:37pm [facility] Medical Records Department [address] [place] [address] Progress Note - Hospitalist 08/05/25 1505 MR#: [id number] Acct: [id number] Name: ELIAS SHAH Rep #:[id number] : 1940 85 From: Jim arzate MD PCP: Dr. Husam Khan MD Status:ADM I N Location: [place] [address] Subjective Subjective Still significant pain behind his [...] Sl. Cloudy, Urine pH 5.0, Ur Specific [place] 1.020, Urine Protein 30 H, Urine Glucose [...] DVT: Lovenox Charges/Coding Visit Charges Inpatient E&M: 85623 Subs Hosp L2 08/05/25 1537 <Electronically signed by Jim Adams MD> Cosigner Signature (if applicable): CC: ~ Signed [facility] Work Phone: 1(642) 133-794609-13-[address] [facility] Medical Records Department [address] [place] [address] Progress Note - Hospitalist 08/05/25 1505 MR#: [id number] Acct: [id number] Name: ELIAS SHAH Rep #:[id number] : 1940 85 From: Jim arzate MD PCP: Dr. Husam Khan MD Status:ADM I N Location: [facility]3 LD957-1 Subjective Subjective Still significant pain behind his [...] Sl. Cloudy, Urine pH 5.0, Ur Specific [place] 1.020, Urine Protein 30 H, Urine Glucose [...] DVT: Lovenox Charges/Coding Visit Charges Inpatient E&M: 88776 Subs Hosp L2 08/05/25 4308 Cosigner Signature (if applicable): CC: ~ Signed [facility]09-12-2025 History and physical note Author Morgan Dubon [facility] Note Date/Time August 04, 2025 5:22pm [facility] Medical Records Department [address] [place] [address] H&P Exam - Hospitalist 08/04/25 1608 MR#: [id number] Acct: [id number] Name: ELIAS SHAH Rep #:[id number] 6 : 1940 85 From: Morgan aguilar DO PCP: Dr. Husam Khan MD Status:ADM I NO Location: [facility] XE652-2 HPI - General General Date of Admission: 08/04/25 Date of Service: 08/04/25 Chief Complaint: Weakness and difficulty with ambulation HPI Narrative ELIAS SHAH, is a 85 M who presented to [facility] ED on 08/04/2025 with weakness and difficulty [...] currently. Will be admitted for further management. [facility] Medical History Macular degeneration Iron deficiency anemia [...] PO BID 06/22/25 Unknown History mg-copper 1 my-fwsiji-iaejyo capsule (PreserVision AREDS-2) rosuvastatin 20 mg tablet [...] beverages and coffee eating out: 1-3 times/week adán/yazidism: Cheondoism seatbelt use: always do you feel [...] 78.2 H, Lymph % (Auto) 6.6 L, Kings % (Auto) 12.6 H, Eos % (Auto) [...] No Acute Findings. Stable examination. Reading Location: [id number] Assessment & Plan Assessment/Plan (1) Debility: (2) MAURO (acute kidney injury): (3) Leg pain, right: PLAN: Plan Patient is an 85-year-old male who presented [facility] ED on 08/04/2025 for weakness and difficulty with ambulation. 1. Acute on chronic debility and difficulty with ambulation ? Admit under observation status to [facility]. PT/OT/case management consulted. Lives at home with but has required SNF placement in the past. Worsening weakness and difficulty with ambulation now is likely due to his recent procedure as below and dehydration from poor p.o. intake postoperatively. is requesting SNF placement on discharge and patient is agreeable with this. Has been [facility] in the past and had a good [...] AVR, paroxysmal A-fib, hypertension, hyperlipidemia: Follows with [facility]. In rate controlled A-fib in the [...] 79 minutes. Charges/Coding Visit Charges Inpatient E&M: 94740 Init Hosp L3 08/04/25 1722 <Electronically signed by Mogran Dubon DO> Cosigner Signature (if applicable): CC: Dr. Morgan Dubon DO; Dr. Husam Khan MD~ Signed [facility] Work Phone: 1([phone]) 759-149909-12-2025 Discharge summary Author Ted Mtz [facility] Note Date/Time August 04, 2025 4:13pm [facility] Medical Records Department [address] [place] [address] Emergency Department Summary 08/04/25 MR#: [id number] Acct: [id number] Name: ELIAS SHAH Rep #:[id number] : 1940 85 From: Ted Mtz [...] been looking to getting him into a retirement facility recently, but his acute worsening since his surgery have limited their ability to do that quickly as an outpatient. He has had several near falls and has been very weak. [facility] Medical History Macular degeneration [...] PO BID 06/22/25 Unknown History mg-copper 1 en-ttckny-finlcd capsule (PreserVision AREDS-2) rosuvastatin 20 mg tablet [...] beverages and coffee eating out: 1-3 times/week adán/yazidism: Cheondoism seatbelt use: always do you feel [...] 78.2 H Lymph % (Auto) 6.6 L Kings % (Auto) 12.6 H Eos % (Auto) [...] No Acute Findings. Stable examination. Reading Location: [id number] Rhythm Strip Rhythm Strip: A-fib Rate: 95 Ectopy: None EKG Initial EKG: Attestation: I personally reviewed and interpreted this EKG as follows: Interpretation: No Acute Injury Pattern, Atrial Fibrillation and LBBB Prior EKG tracings: available for review Prior: Unchanged Management Discussion w/another healthcare provider: Hospitalist and Car Detailer (Vascular) Discharge Plan Dx/Rx/DC Orders Clinical Impression: MAURO (acute kidney injury), Paroxysmal atrial fibrillation, Debility, Leg pain, right Disposition Disposition: [facility] Care Hospital [facility] What to do if you have Problems For any increased pain, shortness of breath, bleeding, nausea or vomiting, chestpain, or any unexpected problems, contact your Primary Care Provider. Call [facility] ([phone]) or report to the closest Emergency Room. Call 911 if necessary. 08/04/25 1613 <Electronically signed by Ted Mtz MD> Cosigner Signature (if applicable): CC: Dr. Husam Khna MD ~ Signed [facility] Work Phone: 1(301) 215-530909-12-[address] [facility] Medical Records Department [address] [place] [address] H&P Exam - Hospitalist 08/04/25 1608 MR#: [id number] Acct: [id number] Name: ELIAS SHAH Rep #:[id number] 6 : 1940 85 From: Morgan aguilar DO PCP: Dr. Husam Khan MD Status:ADM I NO Location: [facility] PU027-2 HPI - General General Date of Admission: 08/04/25 Date of Service: 08/04/25 Chief Complaint: Weakness and difficulty with ambulation HPI Narrative ELIAS SHAH, is a 85 M who presented to [facility] ED on 08/04/2025 with weakness and difficulty [...] he was mildly hypotensive to the 100s [id number] and borderline tachycardic to the 90s but [...] currently. Will be admitted for further management. [facility] Medical History Macular degeneration Iron deficiency anemia [...] PO BID 06/22/25 Unknown History mg-copper 1 gd-rjhlxc-ivdnaq capsule (PreserVision AREDS-2) rosuvastatin 20 mg tablet [...] beverages and coffee eating out: 1-3 times/week adán/yazidism: Cheondoism seatbelt use: always do you feel [...] 78.2 H, Lymph % (Auto) 6.6 L, Kings % (Auto) 12.6 H, Eos % (Auto) [...] No Acute Findings. Stable examination. Reading Location: [id number] Assessment & Plan Assessment/Plan (1) Debility: (2) MAURO (acute kidney injury): (3) Leg pain, right: PLAN: Plan Patient is an 85-year-old male who presented [facility] ED on 08/04/2025 for weakness and difficulty with ambulation. 1. Acute on chronic debility and difficulty with ambulation ? Admit under observation status to [facility]. PT/OT/case management consulted. Lives at home with but has required SNF placement in the past. Worsening weakness and difficulty with ambulation nowis likely due to his recent procedure as below and dehydration from poor p.o. intake postoperatively. is requesting SNF placement on discharge and patient is agreeable with this. Has been [facility] in the past and had a good [...] AVR, paroxysmal A-fib, hypertension, hyperlipidemia: Follows with [facility]. In rate controlled A-fib in the [...] 79 minutes. Charges/Coding Visit Charges Inpatient E&M: 51967 Init Hosp L3 08/04/25 1723 Cosigner Signature (if applicable): CC: Dr. Morgan Dubon DO; Dr. Husam Khan MD~ Signed [facility]09-12-[address] [facility] Medical Records Department [address] [place] [address] Emergency Department Summary 08/04/25 MR#: [id number] Acct: [id number] Name: ELIAS SHAH Rep #:[id number] : 1940 85 From: Ted Mtz [...] been looking to getting him into a retirement facility recently, but his acute worsening since his surgery have limited their ability to do that quickly as an outpatient. He has had several near falls and has been very weak. [facility] Medical History Macular degeneration [...] PO BID 06/22/25 Unknown History mg-copper 1 cw-rmxqrt-hvbbog capsule (PreserVision AREDS-2) rosuvastatin 20 mg tablet [...] beverages and coffee eating out: 1-3 times/week adán/yazidism: Cheondoism seatbelt use: always do you feel [...] 78.2 H Lymph % (Auto) 6.6 L Kings % (Auto) 12.6 H Eos % (Auto) [...] No Acute Findings. Stable examination. Reading Location: [facility] Rhythm Strip Rhythm Strip: A-fib Rate: 95 Ectopy: None EKG Initial EKG: Attestation: I personally reviewed and interpreted this EKG as follows: Interpretation: No Acute Injury Pattern, Atrial Fibrillation and LBBB Prior EKG tracings: available for review Prior: Unchanged Management Discussion w/another healthcare provider: Hospitalist and Car Detailer (Vascular) Discharge Plan Dx/Rx/DC Orders Clinical Impression: MAURO (acute kidney injury), Paroxysmal atrial fibrillation, Debility, Leg pain, right Disposition Disposition: Acute Care [facility] What to do if you have Problems For any increased pain, shortness of breath, bleeding, nausea or vomiting, chestpain, or any unexpected problems, contact your Primary Care Provider. Call [facility] ([phone]) or report tothe closest Emergency Room. Call 911 if necessary. 08/04/25 1613 Cosigner Signature (if applicable): CC: Dr. Husam Khan MD ~ Signed [facility]09-12-2025 Radiology Diagnostic study note [facility] Imaging Services [address] [place], [place] [address] Chest 1 View (Portable) MR#: [id number] Acct: [id number] Name: ELIAS SHAH Rep #: [id number] : 1940 M 85 From: Elliott Vargas MD PCP: Dr. Husam Khan MD Status: REG E R Study:Chest 1 View (Portable) Date of Exam: 08/04/25 Exam# [id number] Ordering Dr: Bishop Mtz MD PROCEDURE: CHEST [...] No Acute Findings. Stable examination. Reading Location: [id number] CC: Dr. Ted Mtz MD; Dr. Husam Khan MD ~ Charge Histotechnologist: Signed [facility]09-04-2025 Radiology Diagnostic study note [facility] Imaging Services [address] [place], [place] [id number] CTA Abd w/Runoff W/WO Contrast MR#: [id number] Acct: [id number] Name: ELIAS SHAH Rep #: [id number] : 1940 M 85 From: Kj Curtis MD PCP: Dr. Husam Khan MD Status: REG E R Study:CTA Abd w/Runoff W/WO Contrast Date of Exam: 07/27/25 Exam# [id number] Ordering Dr: Neymar Medrano DO PROCEDURE: CTA [...] in the clinical history. Reading Location: [id number] CC: Dr. Ilana Medrano DO; Dr. 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 May 22, 2025 10:17am History of aortic valve replacement with bioprosthetic valve June, acute June 22, 2025 9:53am Coronary artery disease chronic J luis fernando 2024 9:53am Essential (primary) hypertension chronic June 22, 2025 9:53am Hyperlipidemia chronic June 22, 2025 9:53am History of coronary artery bypass surgery June, resolved June 22, 2025 9:53am [facility] Work Phone: 1(792) 590-146906-30-2025 Evaluation note* Diagnosis Onset Date Resolution Status Admit Date Iron deficiency anemia due t o chronic blood loss chronic May 22 10:17am 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 May 222024 10:17am History of aortic valve replacement with bioprosthetic valve June, acute June 22, 9:53am Coronary artery disease chronic J luis fernando 2024 9:53am Essential (primary) hypertension chronic June 22, 2025 9:53am Hyperlipidemia chronic June 22, 2025 9:53am History of coronary artery bypass surgery June, resolved June 22, 2025 9:53am Pseudoaneurysm acute August 01, 2025 2:41pm [facility] Work Phone: 1(335) 619-647306-30-2025 Evaluation note* Diagnosis Onset Date Resolution Status [...] 9:53am Pseudoaneurysm inactive August 01, 2025 2:41pm [facility] Work Phone: 1(318) 879-333406-30-2025 Evaluation note* Diagnosis Onset Date Resolution Status Admit Date Iron deficiency anemia due t o chronic blood loss chronic May 22 10:17am 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 May 222024 10:17am History of aortic valve replacement with bioprosthetic valve June, acute June 22 025 9:53am Coronary artery disease chronic J 2024 9:53am Essential (primary) hypertension chronic June 22, 2025 9:53am Hyperlipidemia chronic June 22, 2025 9:53am History of coronary artery bypass surgery June, resolved June 22, 2025 9:53am Pseudoaneurysm inactive August 01, 2025 2:41pm MAURO (acute kidney injury) acute August 05, 2025 12:13pm Debility acute July 12:13pm Leg pain, right acute August 05, 2025 12:13pm [facility] Work Phone: 1([phone]) 752-350506-30-2025 Evaluation note* Diagnosis Onset Date Resolution Status [...] pain, right inactive August 05, 2025 12:13pm [facility] Work Phone: 1(475) 711-290706-30-2025 Evaluation note* Diagnosis Onset Date Resolution Status Admit Date Iron deficiency anemia due t o chronic blood loss chronic May 22 10:17am 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 May 222024 10:17am History of aortic valve replacement with bioprosthetic valve June, acute June 22 9:53am Coronary artery disease chronic J luis fernando 2024 9:53am Essential (primary) hypertension chronic June 22, 2025 9:53am Hyperlipidemia chronic June 22, 2025 9:53am History of coronary artery bypass surgery June, resolved June 22, 2025 9:53am Pseudoaneurysm inactive August 01, 2025 2:41pm MAURO (acute kidney injury) resolved August 05, 2025 12:13pm Debility inactive July 12:13pm Leg pain, right inactive August 05, 2025 12:13pm Aftercare following surgery of the circulatory system acute 2024 8:37am PAD (peripheral artery disease) acute August 24 8:37am Pseudoaneurysm inactive August 8:37am [facility] Work Phone: 1(210) 541-554608-01-2019 Evaluation note* Diagnosis Onset Date Resolution Status 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 June, acute Coronary artery disease 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 Essential (primary) hypertension chronic GERD with esophagitis chroni c Hyperlipidemia chronic History of coronary artery bypass surgery June, resolved Iron deficiency anemia due to chronic blood loss 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 [facility] Work Phone: Evaluation note* Diagnosis Onset Date Resolution Status Iron deficiency anemia due to chronic blood loss 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 Atherosclerosis of coronary artery without angina pectoris chronic Essential (primary) hypertension chronic Hyperlipidemia chronic Paroxysmal atrial fibrillation chronic S/P aortic valve replacement with bioprosthetic valve July 04, 2019 chronic [facility] Work Phone: Evaluation noteNo assessment information available [facility] Work Phone: Evaluation note* Diagnosis Onset Date Resolution Status Iron deficiency anemia due to chronic blood loss 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 [facility] Work Phone: Evaluation note* Diagnosis Onset Date Resolution Status Admit Date Iron deficiency anemia due t o chronic blood loss chronic May 22 10:17am 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 May 22, 2025 10:17am [facility] Work Phone: Reason for referral (narrative)No reason for referral information availableWFayette [facility] Work Phone: Summary Purpose Family History [...] Yes August 20, 2019 7:58am Power of Financial Director Yes July 7:58am Advance Directive Response Recorded Date/ Time Advance Directives No March 02 8:11am Living Will Yes August 20, 2019 6:58am Power of Financial Director Yes July 6:58am Advance Directive Response Recorded Date/ Time Advance Directives No March 02 9:11am Advance Directive Response Recorded Date/ Time Living Will Yes August 20, 2019 7:58am Do you have a Healthcare Power of Financial Director? Yes August 20, 2019 7:58am Advance Directives No March 02 9:11am Advance Directive Response Recorded Date/ Time Living Will Yes August 20, 2019 7:58am Do you have a Healthcare Power of Financial Director? Yes August 20, 2019 7:58am Do you have a Healthcare Power of Financial Director? Yes July 27, 2025 3:40pm Advance Directives No March 02 9:11am Advance Directive Response Recorded Date/ Time Living Will Yes August 20, 2019 7:58am Do you have a Healthcare Power of Financial Director? Yes August 20, 2019 7:58am Do you have a Healthcare Power of Financial Director? Yes July 27, 2025 3:40pm Advance Directives Yes July 8:30am Advance Directive Response Recorded Date/ Time Living Will Yes August 20, 2019 7:58am Do you have a Healthcare Power of Financial Director? Yes August 20, 2019 7:58am Do you have a Healthcare Power of Financial Director? Yes July 27, 2025 3:40pm Advance Directives on File No [email or web address] 7:05am Living Will Yes August 02, 2025 7:05am Do you have a Healthcare Power of Financial Director? Yes August 02, 2025 7:05am Name of Medical Power of Financial Director amalia zamora August 02, 2025 7:05am Advance Directives Yes July 7:05am Advance Directive Response Recorded Date/ Time Living Will Yes August 20, 2019 7:58am Do you have a Healthcare Power of Financial Director? Yes August 20, 2019 7:58am Do you have a Healthcare Power of Financial Director? No August 04, 2025 11:48am Do you have a Healthcare Power of Financial Director? Yes July 27, 2025 3:40pm Advance Directives on File No Jean 2024 7:05am Living Will Yes August 02, 2025 7:05am Do you have a Healthcare Power of Financial Director? Yes August 02, 2025 7:05am Name of Medical Power of Financial Director amalia zamora August 02, 2025 7:05am Advance Directives Yes July 7:05am Advance Directive Response Recorded Date/ Time Living Will Yes August 20, 2019 7:58am Do you have a Healthcare Power of Financial Director? Yes August 20, 2019 7:58am Do you have a Healthcare Power of Financial Director? No August 04, 2025 5:54pm Do you have a Healthcare Power of Financial Director? Yes July 27, 2025 3:40pm Advance Directives on File No [email or web address] 7:05am Living Will Yes August 02, 2025 7:05am Do you have a Healthcare Power of Financial Director? Yes August 02, 2025 7:05am Name of Medical Power of Financial Director amalia zamora August 02, 2025 7:05am Advance [...] a 78 y.o. male who presented to [facility] on 12/04/2018 with an incarcerated, strangulated hernia. He went to the OR urgently for diagnostic lap, which converted to open exploratory laparotomy when the bowel was noted to be nonviable. The diseased segment was resected and the bowel reanastomosed. Post-operatively he was transferred t (more content not included)... Note HNO ID: [id number] Author: Jerel rodas (Sadia Millan Service: Cardiovascular Surgery Author Type: Physician High Speed Printer Operator Type: Discharge Summary Filed: 07/13/2019 4:08 [...] (more content not included)... Note HNO ID: [id number] Author: Leah Peñaloza Service: Hospital Medicine Author [...] [employer]: Roseanna Conner MY CONDITION AT (more content not included)... Note HNO ID: [id number] Author: Jerel Millan ([place]) Service: Cardiovascular Surgery Author Type: Physician High Speed Printer Operator Type: Procedures Filed: 07/11/2019 3:42 PM [...] PAGER/CONTACT #: Procedure Findings Note HNO ID: [id number] Author: Jerel Millan ([place]) Service: Cardiovascular Surgery Author Type: Physician High Speed Printer Operator Type: Procedures Filed: 07/11/2019 3:42 PM [...] section and content) DATE CREATED AUTHOR 01/11/2019 [facility] DATE CREATED AUTHOR AUTHOR'S ORGANIZ ATION 09/19/2019 [facility] DATE CREATED AUTHOR AUTHOR'S ORGANIZ ATION [facility] (unrecognized section and content) Goals [...] 2025 Dr. Ted Mtz MD [facility] Phys[facility] Active Start: August 04, 2025 Dr. Morgan Dubon DO Admitting physician Active Start: July Dr. Morgan Dubon DO Attending physician Active Start: July Dr. Morgan Dubon DO Nurse Practitioner Active Start: July Team Status: Inactive Member Role/Relationship Status Dates Dr. Husam Khan MD Primary care physician Active Start: August 05, 2025 End: August 08, 2025 Dr. Ted Mtz MD [facility] Phys[facility] Active Start: August 05, 2025 End: [...] DO Admitting physician Active Start: July Dr. Mogran Dubon DO Nurse Practitioner Active Start: July [...] Active Member Role/Relationship Status Dates Dr. Husam Kahn MD Primary care physician Active Start: August [...] BE BASED ON THE PRIMARY CLINICAL RECORDS. [facility] [employer] [facility]. provides no warranty or guarantee of the accuracy or completeness of information in this document.
== END ==
LOC: OLS.WCC 01:30
PROVIDERS: PCP Family Medicine Geriatric Medicine; Visit Provider Family Medicine
DX: A41.9 Sepsis, unspecified organism (principal)
CPT/HCPCS: 87493

== ENCOUNTER → 2025-10-02 | Outpatient (REF) | payer MEDICARE, OTHER, SELFPAY ==
--- OUTSIDE RECORDS SUMMARY | 2025-10-02 04:16 | XMS RPT_ITS | CCD ---
Author Organization [facility] Care Team Providers Care Habilitative Interventionist Name Role Phone VALDEZ LANDIS Referring Unavailable [...] Grayson Attending Physician Venecia Qureshi Attending Physician Slivino WAITER/WAITRESS THIRD CLASS-CSerene Attending Physician Silvino WAITER/WAITRESS THIRD CLASS-CSerene Referring Provider Bill, Husam Chi Primary Care Unavailable Kenan Santamaria Attending Unavailable Trixie Askew Attending Unavailabl e Bill, Husam Chi Primary Care Unavailable Bill, Husam Chi Primary Care Unavailable Geoffrey Garza Attending Unavailable CharleyusGeoffrey Referring Unavailable Bill, Husam Chi Attending Unavailable Bill, Husam Chi Primary Care Unavailable Bill, Husam Chi Referring Unavailable TickSerene Perez Attending Unavailable Bill, Husam Chi Primary Care Unavailable Valdez Angel Attending Unavailable Bill, Husam Chi Primary Care Unavailable Bill, Husam Chi Primary Care Unavailable Venecia Villar Referring Unavailable Venecia Villar Attending Unavailable Tickton WAITER/WAITRESS THIRD CLASSSerene Attending Unavailable Bill, Husam Chi Primary Care Unavailable Tickton WAITER/WAITRESS THIRD CLASS, Serene Referring Unavailable Bill, Husam Chi Primary Care Unavailable La Brennan Attending Unavail able Bill, Husam Chi Referring Unavailable Bill, Husam Chi Attending Unavailable Bill, Husam Chi Primary Care Unavailable Bill, Husam Chi Primary Care Unavailable La Brennan Attending Unavail able La Brennan Referring Unavail able Oleghe, Efewongbe Consulting Unavailable Bill, Husam Chi Primary Care Unavailable Ilana Medrano Attending Unavailable Oleghe OLS, Efewongbe Attending Unavailabl [...] Unavailable Mike, Channing Referring Unavailable Mike, Channing Consulting Unavailable [place]port, Channing Attending Unavailable Bill, Husam Chi Primary Care Unavailable SouthportChanning Attending Unavailable Bill, Husam Chi Primary Care Unavailable Kahlil Soto Attending Unavailable Bill, Husam Chi Referring Unavailable Bill, Husam Chi Primary Care Unavailable Mike, Channing Attending Unavailable [place], Channing Referring Unavailable Castillo ARLEEN, Valdez K Attending Unavailable Castillo ARLEEN, Valdez K Referring Unavailable Bill, Husam Chi Primary Care Unavailable Bill, Husam Chi Primary Care Unavailable Bassam, Pedro Attending Unavailable Morgan Dubon Consulting Unavailable Ling, Morgan Admitting Unavailable Jim Adams Consulting Unavailable White, Lesley L Consulting Unavailable White, Lesley L Admitting Unavailable Bassam, Pedro Attending Unavailable Bill, Husam Chi Primary Care Unavailable Roger Sherman Consulting Unavailable Mike, Channing Consulting Unavailable Oleghe OLS, Efewongbe Attending Unavailabl e Bill, Husam Chi Primary Care Unavailable Bill, Husam Chi Primary Care Unavailable Geoffrey Garza Attending Unavailable Bill, Husam Chi Referring Unavailable Mike, Channing Attending Unavailable Bill, Husam Chi Primary Care Unavailable Venecia Villar Referring Unavailable Bill, Husam Chi Primary Care Unavailable [place], Channing Attending Unavailable Bill, Husam Chi Referring Unavailable Bill, Husam Chi Primary Care Unavailable Mostdevora, Morgan Consulting Unavailable Ling Morgan Attending Unavailable Mostdevora, Morgan Admitting Unavailable Bill, Husam Chi Primary Care Unavailable Bassam, Pedro Attending Unavailable Morgan Dubon Consulting Unavailable Morgan Dubon Admitting Unavailable Jim Adams Consulting Unavailable Bassam, Epdro Consulting Unavailable Jim Adams Attending Unavailable Bill, Husam Chi Primary Care Unavailable White, Lesley L Admitting Unavailable White, Lesley L Consulting Unavailable Venecia Villar Attending Unavailable Roger Sherman Consulting Unavailable Channing Mckeon Consulting Unavailable Bassam, Pedro Consulting Unavailable Bassam, Pedro Attending Unavailable KitRoger ortiz Attending Unavailable White, Lesley L Consulting Unavailable White, Lesley L Admitting Unavailable KittoeRoger Attending Unavailable Bill, Husam Chi Primary Care Unavailable KittoeRoger Consulting Unavailable White, Lesley L Consulting Unavailable White, Lesley L Attending Unavailable White, Lesley L Admitting Unavailable Bill, Husam Chi Primary Care Unavailable Bill, Husam Chi Primary Care Unavailable Bill, Husam Chi Referring Unavailable VillarVenecia ayala Attending Unavailable Bill, Husam Chi Primary Care Unavailable Channing Mckeon Attending Unavailable Bill, Husam Chi Referring Unavailable Bill, Husam Chi Primary Care Unavailable Silvino WAITER/WAITRESS THIRD CLASSSerene Attending Unavailable Bill, Husam Chi Primary Care Unavailable Trixie Pang Attending Unavailable Bill, Husam Chi Primary Care Unavailable Tickmyriam WAITER/WAITRESS THIRD CLASSSerene Attending Unavailable Bill, Husam Chi Primary Care Unavailable Trixie Askew Attending Unavailabl e Bill, Husam Chi Attending Unavailable Bill, Husam Chi Primary Care Unavailable Allergies Allergy Classification Reported Allergen(s) Allergy Type Date of Onset Reaction(s) Facility (20 sources) atorvastatin Drug Allergy 01-14-2022 Myalgias [facility] (1 source) atorvastatin Drug Allergy 09-19-2025 [facility] Repository Medications Current Medications Medication Drug Class(es) Dates Sig (Normalized) Sig (Original) acetaminophen 500 mg oral tablet (20 sources) Start: 08-08-2025 Start: 07-28-2019 End: 08-18-2019 Start: 07-28-2019 End: 08-18-2019 take 2 tablets by mouth every six hours as needed for pain Acetaminophen 500 MG tablet Discontinued 1000 mg PO EVERY 6 HOURS NEEDED as needed for Mild Pain (1-10) 0 July 28, 2019 12:00am August 18, 2019 3:19pm Start: 07-28-2019 End: 08-18-2019 take 1000 mg by mouth every six hours as needed Acetaminophen Discontinued 1000 MG PO EVERY 6 HOURS NEEDED July 28, 2019 12:00am August 18, 2019 3:19pm Start: 07-13-2019 End: 07-28-2019 [id number] 200 actuat albuter ol 0.09 mg/actuat metered [...] 02-18-2021 docusate sodium 50 mg / sennosides, fci 8.6 mg oral tablet (20 sources) Start: [...] 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 Start: 01-20-2019 End: 02-01-2019 QUEtiapine 25 mg oral tablet (20 sources) Atypical Antipsychotic Start: 02-18-2021 Vit C,E-Tn-Tkvlx-Lutei n-Zeaxan (Preservision Areds-2) 250-90-40-1 mg capsule (8 sources) Start: 06-22-2025 take 2 capsules by mouth twice daily Vit C,D-Db-Lxnlb-L utein-Zeaxan (Preservision Areds-2) 250-90-40-1 mg capsule Active [...] 20 mg/ml oral solution (20 sources) Uncompetitive Z-dusuon-J-aspartate Receptor Antagonist, Sigma-1 Agonist Start: 07-28-2019 End: [...] Start: 09-01-2019 End: 10-17-2019 lactobacillus acidophilus 50 [id number] unt oral capsule (20 sources) Start: 07-13-2019 [...] Menthol-Zinc Oxide Discontin ued 1 APPLIC TOPICAL [id number] July 28, 2019 12:00am August 18, 2019 [...] 35 mm AtriCure clip on 07/04/[address] [facility] [address] Rivers; Chronic kidney disease (2 [...] hematuria). per Dr. 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 Rivers; Deficiency and other anemia [...] hematuria). per Dr. Wayne Rivers 07/04/19 @ [facility] [address] [facility] Trife cta pericardial prosthesis per Dr. Wayne Rivers 07/04/19 @ [facility] Severe per echo 12/06 @ [facility] Mild per echo 9 done @ [facility] by Dr. José Miguel Gutierrez. No [...] 08-17-2019 Episodic Comment on above: Repaired at [facility] ty 12/04/18 Malaise and fatigue (20 sources) [...] Onset: 12-04-2018 07-13-2019 Episodic Comment on above: [facility] Coronary atherosclerosis and other heart disease [...] severe per [facility] 03/02/19 per [facility]N @ [facility] Results Test Name Value Interpretation Reference Range Facility Basic Metabolic Profile (BMP )on 09-29-2025 BUN/CRE 24.3 RATIO High 09-11 [facility] Comment on above: Performed By: #### L 500.2500, L100.0100 ####[facility] [address] [place], [address] Calcium [Mass/Vol] 7.7 mg/dL Normal 7.6-11.0 [facility] Comment on above: Performed By: #### L 500.2500, L100.0100 ####[facility] [address] [place], [address] Chloride [Moles/Vol] 108 mmol/L Normal 98-108 [facility] Comment on above: Performed By: #### L 500.2500, L100.0100 ####[facility] [address] [place], [address] CO2 [Moles/Vol] 20.1 mmol/L Low 21.0-32.0 [facility] Comment on above: Performed By: #### L 500.2500, L100.0100 ####[facility] [address] [place], [address] Creatinine [Mass/Vol] 2.50 mg/dL High 0.70-1.20 [facility] Comment on above: Performed By: #### L 500.2500, L100.0100 ####[facility] [address] [place], [address] GAP 12 Normal 5-15 [facility] Comment on above: Performed By: #### L 500.2500, L100.0100 ####[facility] [address] [place], [address] GFR/1.73 sq M.predicted among non-blacks MDRD (S/P/Bld) [Vol rate/Area] 24 mL/min/{1.73_m2} Low >60 [facility] Comment on above: Result Comment: mL/m in/1.73m2 CKD-EPI Creatinine Equation (2020) Performed By: #### L 500.2500, L100.0100 ####[facility] [address] [place], [address] Glucose [Mass/Vol] 122 mg/dL High 70-99 [facility] Comment on above: Performed By: #### L 500.2500, L100.0100 ####[facility] [address] [place], [address] Potassium [Moles/Vol] 3.3 mmol/L Normal 3.3-5.1 [facility] Comment on above: Performed By: #### L 500.2500, L100.0100 ####[facility] [address] [place], [address] Sodium [Moles/Vol] 140 mmol/L Normal 133-145 [facility] Comment on above: Performed By: #### L 500.2500, L100.0100 ####[facility] [address] [place], [address] Urea nitrogen [Mass/Vol] 61 mg/dL High 4-19 [facility] Comment on above: Performed By: #### L 500.2500, L100.0100 ####[facility] [address] [place], [address] CBC W/Diff, Automatedon - PATH REV Reviewed Normal [facility] Comment on above: Order Comment: CRITI [place] VALUE CALLED TO GAGAN FORD09/29/25 0747 Robina Asher.RESULTS READ BACK BY SAME. Result Comment: LEUK OCYTOSIS WITH LEFT-SHIFTED GRANULOCYTOSIS ANDMONOCYTOSIS, SUGGESTIVE OF INFECTION.NORMOCYTIC HYPOCHROMIC ANEMIA WITH MODERATE ANISOCYTOSIS ANDOCCASIONAL OVALOCYTES.PLATELETS ADEQUATE.Le Leger MD 09/29/2025 AMENDED REPORT 09/29/25 1510 PATH REV previously reported as: Ruthann walton Performed By: #### L 500.2500, L100.0100 ####[facility] [address] [place], [address] CDIFF (PCR)on 09-27-2025 CDIFF Normal [facility] Comment on above: Performed By: #### M 100.6795, M100.6796 ####[facility] [address] [place], [address] Clostridium Diff Toxin/Agon 09-27-2025 CDIFF (EIA) Normal [facility] Comment on above: Performed By: #### M 100.6795, M100.6796 ####[facility] [address] [place], [address] CBC-Complete Blood Cnt No Di ffon 09-25-2025 Erythrocyte distribution width (RBC) [Ratio] 20.9 % High 11.6-14.6 [facility] Comment on above: Performed By: #### L 100.0500, L100.4500 ####[facility] [address] [place], [address] Hematocrit (Bld) [Volume fraction] 29.7 % Low 40-54 [facility] Comment on above: Performed By: #### L 100.0500, L100.4500 ####[facility] [address] [place], [address] Hemoglobin (Bld) [Mass/Vol] 8.9 g/dL Low 13.0-16.5 [facility] Comment on above: Performed By: #### L 100.0500, L100.4500 ####[facility] [address] [place], [address] MCH (RBC) [Entitic mass] 25.6 pg Low 27.0-32.0 [facility] Comment on above: Performed By: #### L 100.0500, L100.4500 ####[facility] [address] [place], [address] MCHC (RBC) [Mass/Vol] 30.0 g/dL Low 32-36 [facility] Comment on above: Performed By: #### L 100.0500, L100.4500 ####[facility] [address] [place], [address] MCV (RBC) [Entitic vol] 85.3 fL Normal 80-94 [facility] Comment on above: Performed By: #### L 100.0500, L100.4500 ####[facility] [address] [place], [address] Platelet mean volume (Bld) [Entitic vol] 9.0 fL Normal 6.2-12.0 [facility] Comment on above: Performed By: #### L 100.0500, L100.4500 ####[facility] [address] [place], [address] Platelets (Bld) [#/Vol] 292 10*3/uL Normal 150-450 [facility] Comment on above: Performed By: #### L 100.0500, L100.4500 ####[facility] [address] [place], [address] RBC (Bld) [#/Vol] 3.48 10*6/uL Low 4.6-6.2 [facility] Comment on above: Performed By: #### L 100.0500, L100.4500 ####[facility] [address] [place], [address] RDW SD 59.3 fl High 35.1-43.9 [facility] Comment on above: Performed By: #### L 100.0500, L100.4500 ####[facility] [address] [place], [address] WBC (Bld) [#/Vol] 27.9 10*3/uL High 4.4-11.0 [facility] Comment on above: Performed By: #### L 100.0500, L100.4500 ####[facility] [address] [place], [address] Differential Commenton 09-25 SMEAR COMMENT SCANNED Normal [facility] Comment on above: Result Comment: 2+ A NISOCYTOSIS Performed By: #### L 100.0500, L100.4500 ####[facility] [address] [place], [address] Basic Metabolic Profile (BMP )on 09-24-2025 BUN Normal 4-19 [facility] Comment on above: Result Comment: Canc elled via OM: Order cancelled - Patient discharged Performed By: #### L 500.2500 ####[facility] [address] [place], [address] BUN/CRE Normal 10-20 [facility] Comment on above: Result Comment: Canc elled via OM: Order cancelled - Patient discharged Performed By: #### L 500.2500 ####[facility] [address] [place], [address] Calcium Normal 7.6-11.0 [facility] Comment on above: Result Comment: Canc elled via OM: Order cancelled - Patient discharged Performed By: #### L 500.2500 ####[facility] [address] [place], [address] CL Normal 98-108 [facility] Comment on above: Result Comment: Canc elled via OM: Order cancelled - Patient discharged Performed By: #### L 500.2500 ####[facility] [address] [place], [address] CO2 Normal 21.0-32.0 [facility] Comment on above: Result Comment: Canc elled via OM: Order cancelled - Patient discharged Performed By: #### L 500.2500 ####[facility] [address] [place], [address] CREAT,SERUM Normal 0.70-1.20 [facility] Comment on above: Result Comment: Canc elled via OM: Order cancelled - Patient discharged Performed By: #### L 500.2500 ####[facility] [address] [place], [address] eGFR Normal >60 [facility] Comment on above: Result Comment: Canc elled via OM: Order cancelled - Patient discharged Performed By: #### L 500.2500 ####[facility] [address] [place], [address] GAP Normal 5-15 [facility] Comment on above: Result Comment: Canc elled via OM: Order cancelled - Patient discharged Performed By: #### L 500.2500 ####[facility] [address] [place], [address] GLU Normal 70-99 [facility] Comment on above: Result Comment: Canc elled via OM: Order cancelled - Patient discharged Performed By: #### L 500.2500 ####[facility] [address] [place], [address] Potassium Normal 3.3-5.1 [facility] Comment on above: Result Comment: Canc elled via OM: Order cancelled - Patient discharged Performed By: #### L 500.2500 ####[facility] [address] [place], [address] Basic Metabolic Profile (BMP) Normal 133-145 [facility] Comment on above: Result Comment: Canc elled via OM: Order cancelled - Patient discharged Performed By: #### L 500.2500 ####[facility] [address] [place], [address] CBC W/Diff, Automatedon 11-0 2-2024 Absolute Neut Normal 2.0-7.7 [facility] Comment on above: Result Comment: Canc elled via OM: Order cancelled - Patient discharged Performed By: #### L 100.0100 ####[facility] [address] [place], [address] HCT Normal 40-54 [facility] Comment on above: Result Comment: Canc elled via OM: Order cancelled - Patient discharged Performed By: #### L 100.0100 ####[facility] [address] [place], [address] HGB Normal 13.0-16.5 [facility] Comment on above: Result Comment: Canc elled via OM: Order cancelled - Patient discharged Performed By: #### L 100.0100 ####[facility] [address] [place], [address] MCH Normal 27.0-32.0 [facility] Comment on above: Result Comment: Canc elled via OM: Order cancelled - Patient discharged Performed By: #### L 100.0100 ####[facility] [address] [place], [address] MCHC Normal 32-36 [facility] Comment on above: Result Comment: Canc elled via OM: Order cancelled - Patient discharged Performed By: #### L 100.0100 ####[facility] [address] [place], [address] MCV Normal 80-94 [facility] Comment on above: Result Comment: Canc elled via OM: Order cancelled - Patient discharged Performed By: #### L 100.0100 ####[facility] [address] [place], [address] NEUT% Normal 47-70 [facility] Comment on above: Result Comment: Canc elled via OM: Order cancelled - Patient discharged Performed By: #### L 100.0100 ####[facility] [address] [place], [address] PLT Normal 150-450 [facility] Comment on above: Result Comment: Canc elled via OM: Order cancelled - Patient discharged Performed By: #### L 100.0100 ####[facility] [address] [place], [address] RBC Normal 4.6-6.2 [facility] Comment on above: Result Comment: Canc elled via OM: Order cancelled - Patient discharged Performed By: #### L 100.0100 ####[facility] [address] [place], [address] RDW CV Normal 11.6-14.6 [facility] Comment on above: Result Comment: Canc elled via OM: Order cancelled - Patient discharged Performed By: #### L 100.0100 ####[facility] [address] [place], [address] RDW SD Normal 35.1-43.9 [facility] Comment on above: Result Comment: Canc elled via OM: Order cancelled - Patient discharged Performed By: #### L 100.0100 ####[facility] [address] [place], [address] WBC Normal 4.4-11.0 [facility] Comment on above: Result Comment: Canc elled via OM: Order cancelled - Patient discharged Performed By: #### L 100.0100 ####[facility] [address] [place], [address] Basic Metabolic Profile (BMP )on 09-23-2025 BUN/CRE 21.4 RATIO High 10-20 [facility] Comment on above: Performed By: #### L 500.2500 ####[facility] [address] [place], [address] Calcium [Mass/Vol] 8.0 mg/dL Normal 7.6-11.0 [facility] Comment on above: Performed By: #### L 500.2500 ####[facility] [address] [place], [address] Chloride [Moles/Vol] 104 mmol/L Normal 98-108 [facility] Comment on above: Performed By: #### L 500.2500 ####[facility] [address] [place], [address] CO2 [Moles/Vol] 23.4 mmol/L Normal 21.0-32.0 [facility] Comment on above: Performed By: #### L 500.2500 ####[facility] [address] [place], [address] Creatinine [Mass/Vol] 0.99 mg/dL Normal 0.70-1.20 [facility] Comment on above: Performed By: #### L 500.2500 ####[facility] [address] [place], [address] ECRCL 52.57 ml/min Normal 50-250 [facility] Comment on above: Performed By: #### L 500.2500 ####[facility] [address] [place], [address] GAP 11 Normal 5-15 [facility] Comment on above: Performed By: #### L 500.2500 ####[facility] [address] [place], [address] GFR/1.73 sq M.predicted among non-blacks MDRD (S/P/Bld) [Vol rate/Area] 74 mL/min/{1.73_m2} Normal >60 [facility] Comment on above: Result Comment: mL/m in/1.73m2 CKD-EPI Creatinine Equation (2020) Performed By: #### L 500.2500 ####[facility] [address] [place], [address] Glucose [Mass/Vol] 84 mg/dL Normal 70-99 [facility] Comment on above: Performed By: #### L 500.2500 ####[facility] [address] [place], [address] Potassium [Moles/Vol] 3.3 mmol/L Normal 3.3-5.1 [facility] Comment on above: Performed By: #### L 500.2500 ####[facility] [address] [place], [address] Sodium [Moles/Vol] 138 mmol/L Normal 133-145 [facility] Comment on above: Performed By: #### L 500.2500 ####[facility] [address] [place], [address] Urea nitrogen [Mass/Vol] 21 mg/dL High 4-19 [facility] Comment on above: Performed By: #### L 500.2500 ####[facility] [address] [place], [address] CBC W/Diff, Automatedon 11-0 1-2024 Absolute Lymph 2.92 X10 3/uL Normal 0.83-4.51 [facility] Comment on above: Performed By: #### L 100.0100 ####[facility] [address] [place], [address] Absolute Neut 7.2 X10 3/uL Normal 2.0-7.7 [facility] Comment on above: Performed By: #### L 100.0100 ####[facility] [address] [place], [address] Basophils/100 WBC (Bld) 0.2 % Normal 0-1 [facility] Comment on above: Performed By: #### L 100.0100 ####[facility] [address] [place], [address] Eosinophils/100 WBC (Bld) 0.4 % Normal 0-5 [facility] Comment on above: Performed By: #### L 100.0100 ####[facility] [address] [place], [address] Erythrocyte distribution width (RBC) [Ratio] 19.4 % High 11.6-14.6 [facility] Comment on above: Performed By: #### L 100.0100 ####[facility] [address] [place], [address] Hematocrit (Bld) [Volume fraction] 27.4 % Low 40-54 [facility] Comment on above: Performed By: #### L 100.0100 ####[facility] [address] [place], [address] Hemoglobin (Bld) [Mass/Vol] 8.0 g/dL Low 13.0-16.5 [facility] Comment on above: Performed By: #### L 100.0100 ####[facility] [address] [place], [address] IG% 1.600 High 0.0-0.9 [facility] Comment on above: Result Comment: IG% - Immature Granulocytes (promyelocytes, myelocytes andmetamyelocytes) > 1% indicates that a LEFT SHIFT is Present. Performed By: #### L 100.0100 ####[facility] [address] [place], [address] Lymphocytes/100 WBC (Bld) 25.3 % Normal 19-41 [facility] Comment on above: Performed By: #### L 100.0100 ####[facility] [address] [place], [address] MCH (RBC) [Entitic mass] 23.8 pg Low 27.0-32.0 [facility] Comment on above: Performed By: #### L 100.0100 ####[facility] [address] [place], [address] MCHC (RBC) [Mass/Vol] 29.2 g/dL Low 32-36 [facility] Comment on above: Performed By: #### L 100.0100 ####[facility] [address] [place], [address] MCV (RBC) [Entitic vol] 81.5 fL Normal 80-94 [facility] Comment on above: Performed By: #### L 100.0100 ####[facility] [address] [place], [address] Monocytes/100 WBC (Bld) 10.0 % Normal 0-10 [facility] Comment on above: Performed By: #### L 100.0100 ####[facility] [address] [place], [address] Neutrophils/100 WBC (Bld) 62.5 % Normal 47-70 [facility] Comment on above: Performed By: #### L 100.0100 ####[facility] [address] [place], [address] Nucleated RBC (Bld) [#/Vol] 0 10*3/uL Normal 0-5 [facility] Comment on above: Performed By: #### L 100.0100 ####[facility] [address] [place], [address] Platelet mean volume (Bld) [Entitic vol] 9.3 fL Normal 6.2-12.0 [facility] Comment on above: Performed By: #### L 100.0100 ####[facility] [address] [place], [address] Platelets (Bld) [#/Vol] 283 10*3/uL Normal 150-450 [facility] Comment on above: Performed By: #### L 100.0100 ####[facility] [address] [place], [address] RBC (Bld) [#/Vol] 3.36 10*6/uL Low 4.6-6.2 [facility] Comment on above: Performed By: #### L 100.0100 ####[facility] [address] [place], [address] RDW SD 56.0 fl High 35.1-43.9 [facility] Comment on above: Performed By: #### L 100.0100 ####[facility] [address] [place], [address] WBC (Bld) [#/Vol] 11.6 10*3/uL High 4.4-11.0 [facility] Comment on above: Performed By: #### L 100.0100 ####[facility] [address] [place], [address] Culture, Blood (WB)on 2024 CUB Normal [facility] Comment on above: Performed By: #### M 200.1000, M100.636 ####[facility] [address] [place], [address] Transferrinon 09-23-2025 Transferrin [Mass/Vol] 126 mg/dL Low 149-313 [facility] Comment on above: Result Comment: Perf ormed at: - [facility] [address] Director: Alcides Alicea PhD, Phone: [phone] Performed By: #### L 6098.4685, W123.4899, J141.2372 ####[facility] [address] [place], [address] Basic Metabolic Profile (BMP )on 09-22-2025 BUN/CRE 24.0 RATIO High 10-20 [facility] Comment on above: Performed By: #### L 500.2500, L100.0100 ####[facility] [address] [place], [address] Calcium [Mass/Vol] 8.1 mg/dL Normal 7.6-11.0 [facility] Comment on above: Performed By: #### L 500.2500, L100.0100 ####[facility] [address] [place], [address] Chloride [Moles/Vol] 104 mmol/L Normal 98-108 [facility] Comment on above: Performed By: #### L 500.2500, L100.0100 ####[facility] [address] [place], [address] CO2 [Moles/Vol] 25.2 mmol/L Normal 21.0-32.0 [facility] Comment on above: Performed By: #### L 500.2500, L100.0100 ####[facility] [address] [place], [address] Creatinine [Mass/Vol] 1.05 mg/dL Normal 0.70-1.20 [facility] Comment on above: Performed By: #### L 500.2500, L100.0100 ####[facility] [address] [place], [address] ECRCL 49.56 ml/min Low 50-250 [facility] Comment on above: Performed By: #### L 500.2500, L100.0100 ####[facility] [address] [place], [address] GAP 10 Normal 5-15 [facility] Comment on above: Performed By: #### L 500.2500, L100.0100 ####[facility] [address] [place], [address] GFR/1.73 sq M.predicted among non-blacks MDRD (S/P/Bld) [Vol rate/Area] 69 mL/min/{1.73_m2} Normal >60 [facility] Comment on above: Result Comment: mL/m in/1.73m2 CKD-EPI Creatinine Equation (2020) Performed By: #### L 500.2500, L100.0100 ####[facility] [address] [place], [address] Glucose [Mass/Vol] 111 mg/dL High 70-99 [facility] Comment on above: Performed By: #### L 500.2500, L100.0100 ####[facility] [address] [place], [address] Potassium [Moles/Vol] 3.5 mmol/L Normal 3.3-5.1 [facility] Comment on above: Performed By: #### L 500.2500, L100.0100 ####[facility] [address] [place], [address] Sodium [Moles/Vol] 139 mmol/L Normal 133-145 [facility] Comment on above: Performed By: #### L 500.2500, L100.0100 ####[facility] [address] [place], [address] Urea nitrogen [Mass/Vol] 25 mg/dL High 4-19 [facility] Comment on above: Performed By: #### L 500.2500, L100.0100 ####[facility] [address] [place], [address] Bedside Glucoseon 09-22-2025 FINGERSTICK GLU 138 mg/dL High 74-106 [facility] Comment on above: Result Comment: GREG STOUT OF PATIENT CARE PER NURSING PROTOCOL Performed By: #### L 501.080 ####[facility] [address] [place], [address] CBC W/Diff, Automatedon 10-3 Absolute Lymph 3.02 X10 3/uL Normal 0.83-4.51 [facility] Comment on above: Performed By: #### L 500.2500, L100.0100 ####[facility] [address] [place], [address] Absolute Neut 9.9 X10 3/uL High 2.0-7.7 [facility] Comment on above: Performed By: #### L 500.2500, L100.0100 ####[facility] [address] [place], [address] Basophils/100 WBC (Bld) 0.1 % Normal 0-1 [facility] Comment on above: Performed By: #### L 500.2500, L100.0100 ####[facility] [address] [place], [address] Eosinophils/100 WBC (Bld) 0.3 % Normal 0-5 [facility] Comment on above: Performed By: #### L 500.2500, L100.0100 ####[facility] [address] [place], [address] Erythrocyte distribution width (RBC) [Ratio] 19.4 % High 11.6-14.6 [facility] Comment on above: Performed By: #### L 500.2500, L100.0100 ####[facility] [address] [place], [address] Hematocrit (Bld) [Volume fraction] 26.4 % Low 40-54 [facility] Comment on above: Performed By: #### L 500.2500, L100.0100 ####[facility] [address] [place], [address] Hemoglobin (Bld) [Mass/Vol] 7.9 g/dL Low 13.0-16.5 [facility] Comment on above: Performed By: #### L 500.2500, L100.0100 ####[facility] [address] [place], [address] IG% 1.500 High 0.0-0.9 [facility] Comment on above: Result Comment: IG% - Immature Granulocytes (promyelocytes, myelocytes andmetamyelocytes) > 1% indicates that a LEFT SHIFT is Present. Performed By: #### L 500.2500, L100.0100 ####[facility] [address] [place], [address] Lymphocytes/100 WBC (Bld) 20.8 % Normal 19-41 [facility] Comment on above: Performed By: #### L 500.2500, L100.0100 ####[facility] [address] [place], [address] MCH (RBC) [Entitic mass] 24.5 pg Low 27.0-32.0 [facility] Comment on above: Performed By: #### L 500.2500, L100.0100 ####[facility] [address] [place], [address] MCHC (RBC) [Mass/Vol] 29.9 g/dL Low 32-36 [facility] Comment on above: Performed By: #### L 500.2500, L100.0100 ####[facility] [address] [place], [address] MCV (RBC) [Entitic vol] 81.7 fL Normal 80-94 [facility] Comment on above: Performed By: #### L 500.2500, L100.0100 ####[facility] [address] [place], [address] Monocytes/100 WBC (Bld) 8.8 % Normal 0-10 [facility] Comment on above: Performed By: #### L 500.2500, L100.0100 ####[facility] [address] [place], [address] Neutrophils/100 WBC (Bld) 68.5 % Normal 47-70 [facility] Comment on above: Performed By: #### L 500.2500, L100.0100 ####[facility] [address] [place], [address] Nucleated RBC (Bld) [#/Vol] 0 10*3/uL Normal 0-5 [facility] Comment on above: Performed By: #### L 500.2500, L100.0100 ####[facility] [address] [place], [address] Platelet mean volume (Bld) [Entitic vol] 9.3 fL Normal 6.2-12.0 [facility] Comment on above: Performed By: #### L 500.2500, L100.0100 ####[facility] [address] [place], [address] Platelets (Bld) [#/Vol] 285 10*3/uL Normal 150-450 [facility] Comment on above: Performed By: #### L 500.2500, L100.0100 ####[facility] [address] [place], [address] RBC (Bld) [#/Vol] 3.23 10*6/uL Low 4.6-6.2 [facility] Comment on above: Performed By: #### L 500.2500, L100.0100 ####[facility] [address] [place], [address] RDW SD 56.6 fl High 35.1-43.9 [facility] Comment on above: Performed By: #### L 500.2500, L100.0100 ####[facility] [address] [place], [address] WBC (Bld) [#/Vol] 14.5 10*3/uL High 4.4-11.0 [facility] Comment on above: Performed By: #### L 500.2500, L100.0100 ####[facility] [address] [place], [address] CTA Abd w/Runoff W/WO Contra ston 09-22-2025 CTA Abd w/Runoff W/WO Contrast Normal [facility] Consultation - Surgicalon Consultation - Surgical Normal [facility] Ferritinon 09-22-2025 Ferritin [Mass/Vol] 750 ng/mL High 37-417 [facility] Comment on above: Performed By: #### L 3400.3800, L503.6504, L503.6030 ####[facility] [address] [place], [address] Iron+Iron Binding Capacityon 09-22-2025 TIBC 141 ug/dL Low 250-450 [facility] Comment on above: Performed By: #### L 3400.3800, L503.6550, L503.6030 ####[facility] [address] [place], [address] US Art Duplex Unilat Lower E xton 09-22-2025 US Art Duplex Unilat Lower Ext Normal [facility] Basic Metabolic Profile (BMP )on 09-21-2025 BUN/CRE 25.3 RATIO High 09-11 [facility] Comment on above: Performed By: #### L 501.2300, L100.0100, L500.2500, L501.5200 ####[facility] [address] [place], [address] Calcium [Mass/Vol] 8.1 mg/dL Normal 7.6-11.0 [facility] Comment on above: Performed By: #### L 501.2300, L100.0100, L500.2500, L501.5200 ####[facility] [address] [place], [address] Chloride [Moles/Vol] 104 mmol/L Normal 98-108 [facility] Comment on above: Performed By: #### L 501.2300, L100.0100, L500.2500, L501.5200 ####[facility] [address] [place], [address] CO2 [Moles/Vol] 26.5 mmol/L Normal 21.0-32.0 [facility] Comment on above: Performed By: #### L 501.2300, L100.0100, L500.2500, L501.5200 ####[facility] [address] [place], [address] Creatinine [Mass/Vol] 1.10 mg/dL Normal 0.70-1.20 [facility] Comment on above: Performed By: #### L 501.2300, L100.0100, L500.2500, L501.5200 ####[facility] [address] [place], [address] ECRCL 47.31 ml/min Low 50-250 [facility] Comment on above: Performed By: #### L 501.2300, L100.0100, L500.2500, L501.5200 ####[facility] [address] [place], [address] GAP 10 Normal 5-15 [facility] Comment on above: Performed By: #### L 501.2300, L100.0100, L500.2500, L501.5200 ####[facility] [address] [place], [address] GFR/1.73 sq M.predicted among non-blacks MDRD (S/P/Bld) [Vol rate/Area] 65 mL/min/{1.73_m2} Normal >60 [facility] Comment on above: Result Comment: mL/m in/1.73m2 CKD-EPI Creatinine Equation (2020) Performed By: #### L 501.2300, L100.0100, L500.2500, L501.5200 ####[facility] [address] [place], [address] Glucose [Mass/Vol] 88 mg/dL Normal 70-99 [facility] Comment on above: Performed By: #### L 501.2300, L100.0100, L500.2500, L501.5200 ####[facility] [address] [place], [address] Potassium [Moles/Vol] 3.8 mmol/L Normal 3.3-5.1 [facility] Comment on above: Performed By: #### L 501.2300, L100.0100, L500.2500, L501.5200 ####[facility] [address] [place], [address] Sodium [Moles/Vol] 140 mmol/L Normal 133-145 [facility] Comment on above: Performed By: #### L 501.2300, L100.0100, L500.2500, L501.5200 ####[facility] [address] [place], [address] Urea nitrogen [Mass/Vol] 28 mg/dL High 4-19 [facility] Comment on above: Performed By: #### L 501.2300, L100.0100, L500.2500, L501.5200 ####[facility] [address] [place], [address] CBC W/Diff, Automatedon 10-3 0-2025 Absolute Lymph 3.08 X10 3/uL Normal 0.83-4.51 [facility] Comment on above: Performed By: #### L 501.2300, L100.0100, L500.2500, L501.5200 ####[facility] [address] [place], [address] Absolute Neut 8.0 X10 3/uL High 2.0-7.7 [facility] Comment on above: Performed By: #### L 501.2300, L100.0100, L500.2500, L501.5200 ####[facility] [address] [place], [address] Basophils/100 WBC (Bld) 0.2 % Normal 0-1 [facility] Comment on above: Performed By: #### L 501.2300, L100.0100, L500.2500, L501.5200 ####[facility] [address] [place], [address] Eosinophils/100 WBC (Bld) 0.7 % Normal 0-5 [facility] Comment on above: Performed By: #### L 501.2300, L100.0100, L500.2500, L501.5200 ####[facility] [address] [place], [address] Erythrocyte distribution width (RBC) [Ratio] 19.1 % High 11.6-14.6 [facility] Comment on above: Performed By: #### L 501.2300, L100.0100, L500.2500, L501.5200 ####[facility] [address] [place], [address] Hematocrit (Bld) [Volume fraction] 26.9 % Low 40-54 [facility] Comment on above: Performed By: #### L 501.2300, L100.0100, L500.2500, L501.5200 ####[facility] [address] [place], [address] Hemoglobin (Bld) [Mass/Vol] 7.6 g/dL Low 13.0-16.5 [facility] Comment on above: Performed By: #### L 501.2300, L100.0100, L500.2500, L501.5200 ####[facility] [address] [place], [address] IG% 2.200 High 0.0-0.9 [facility] Comment on above: Result Comment: IG% - Immature Granulocytes (promyelocytes, myelocytes andmetamyelocytes) > 1% indicates that a LEFT SHIFT is Present. Performed By: #### L 501.2300, L100.0100, L500.2500, L501.5200 ####[facility] [address] [place], [address] Lymphocytes/100 WBC (Bld) 25.2 % Normal 19-41 [facility] Comment on above: Performed By: #### L 501.2300, L100.0100, L500.2500, L501.5200 ####[facility] [address] [place], [address] MCH (RBC) [Entitic mass] 23.5 pg Low 27.0-32.0 [facility] Comment on above: Performed By: #### L 501.2300, L100.0100, L500.2500, L501.5200 ####[facility] [address] [place], [address] MCHC (RBC) [Mass/Vol] 28.3 g/dL Low 32-36 [facility] Comment on above: Performed By: #### L 501.2300, L100.0100, L500.2500, L501.5200 ####[facility] [address] [place], [address] MCV (RBC) [Entitic vol] 83.0 fL Normal 80-94 [facility] Comment on above: Performed By: #### L 501.2300, L100.0100, L500.2500, L501.5200 ####[facility] [address] [place], [address] Monocytes/100 WBC (Bld) 6.5 % Normal 0-10 [facility] Comment on above: Performed By: #### L 501.2300, L100.0100, L500.2500, L501.5200 ####[facility] [address] [place], [address] Neutrophils/100 WBC (Bld) 65.2 % Normal 47-70 [facility] Comment on above: Performed By: #### L 501.2300, L100.0100, L500.2500, L501.5200 ####[facility] [address] [place], [address] Nucleated RBC (Bld) [#/Vol] 0 10*3/uL Normal 0-5 [facility] Comment on above: Performed By: #### L 501.2300, L100.0100, L500.2500, L501.5200 ####[facility] [address] [place], [address] Platelet mean volume (Bld) [Entitic vol] 9.5 fL Normal 6.2-12.0 [facility] Comment on above: Performed By: #### L 501.2300, L100.0100, L500.2500, L501.5200 ####[facility] [address] [place], [address] Platelets (Bld) [#/Vol] 261 10*3/uL Normal 150-450 [facility] Comment on above: Performed By: #### L 501.2300, L100.0100, L500.2500, L501.5200 ####[facility] [address] [place], [address] RBC (Bld) [#/Vol] 3.24 10*6/uL Low 4.6-6.2 [facility] Comment on above: Performed By: #### L 501.2300, L100.0100, L500.2500, L501.5200 ####[facility] [address] [place], [address] RDW SD 57.3 fl High 35.1-43.9 [facility] Comment on above: Performed By: #### L 501.2300, L100.0100, L500.2500, L501.5200 ####[facility] [address] [place], [address] WBC (Bld) [#/Vol] 12.2 10*3/uL High 4.4-11.0 [facility] Comment on above: Performed By: #### L 501.2300, L100.0100, L500.2500, L501.5200 ####[facility] [address] [place], [address] Magnesiumon 10-30-2025 Magnesium [Mass/Vol] 1.7 mg/dL Normal 1.5-2.2 [facility] Comment on above: Performed By: #### L 501.2300, L100.0100, L500.2500, L501.5200 ####[facility] [address] [place], [address] Phosphoruson 09-21-2025 Phosphate [Mass/Vol] 2.8 mg/dL Normal 2.7-4.5 [facility] Comment on above: Performed By: #### L 501.2300, L100.0100, L500.2500, L501.5200 ####[facility] [address] [place], [address] BC GPC IDon 09-20-2025 BC GPC ID Normal [facility] Comment on above: Performed By: #### M 200.1000, M100.636 ####[facility] [address] [place], [address] CBC W/Diff, Automatedon 08-24 SMEAR COMMENT SCANNED Normal [facility] Comment on above: Result Comment: MONO CYTOSIS PRESENT Performed By: #### L 100.0100, L500.4050 ####[facility] [address] [place], [address] Comprehensive Metabolic Prof ilon 09-20-2025 Albumin [Mass/Vol] 2.1 g/dL Low 3.4-4.8 [facility] Comment on above: Performed By: #### L 100.0100, L500.4050 ####[facility] [address] [place], [address] Albumin/Globulin [Mass ratio] 0.5 {ratio} Low 0.9-2.4 [facility] Comment on above: Performed By: #### L 100.0100, L500.4050 ####[facility] [address] [place], [address] ALK PHOS 176 U/L High 40-129 [facility] Comment on above: Performed By: #### L 100.0100, L500.4050 ####[facility] [address] [place], [address] ALT [Catalytic activity/Vol] 58 U/L High <=46 [facility] Comment on above: Performed By: #### L 100.0100, L500.4050 ####[facility] [address] [place], [address] AST [Catalytic activity/Vol] 89 U/L High <=37 [facility] Comment on above: Performed By: #### L 100.0100, L500.4050 ####[facility] [address] [place], [address] Bilirubin [Mass/Vol] 0.46 mg/dL Normal 0.00-1.30 [facility] Comment on above: Performed By: #### L 100.0100, L500.4050 ####[facility] [address] [place], [address] BUN/CRE 23.6 RATIO High 10-20 [facility] Comment on above: Performed By: #### L 100.0100, L500.4050 ####[facility] [address] [place], [address] Calcium [Mass/Vol] 8.2 mg/dL Normal 7.6-11.0 [facility] Comment on above: Performed By: #### L 100.0100, L500.4050 ####[facility] [address] [place], [address] Chloride [Moles/Vol] 105 mmol/L Normal 98-108 [facility] Comment on above: Performed By: #### L 100.0100, L500.4050 ####[facility] [address] [place], [address] CO2 [Moles/Vol] 26.6 mmol/L Normal 21.0-32.0 [facility] Comment on above: Performed By: #### L 100.0100, L500.4050 ####[facility] [address] [place], [address] Creatinine [Mass/Vol] 1.35 mg/dL High 0.70-1.20 [facility] Comment on above: Performed By: #### L 100.0100, L500.4050 ####[facility] [address] [place], [address] ECRCL 38.55 ml/min Low 50-250 [facility] Comment on above: Performed By: #### L 100.0100, L500.4050 ####[facility] [address] [place], [address] GAP 11 Normal 5-15 [facility] Comment on above: Performed By: #### L 100.0100, L500.4050 ####[facility] [address] [place], [address] GFR/1.73 sq M.predicted among non-blacks MDRD (S/P/Bld) [Vol rate/Area] 51 mL/min/{1.73_m2} Low >60 [facility] Comment on above: Result Comment: mL/m in/1.73m2 CKD-EPI Creatinine Equation (2020) Performed By: #### L 100.0100, L500.4050 ####[facility] [address] [place], [address] Globulin (S) [Mass/Vol] 4.3 g/dL High 2.2-4.2 [facility] [facility] Comment on above: Performed By: #### L 100.0100, L500.4050 ####[facility] [address] [place], [address] Glucose [Mass/Vol] 107 mg/dL High 70-99 [facility] Comment on above: Performed By: #### L 100.0100, L500.4050 ####[facility] [address] [place], [address] Potassium [Moles/Vol] 3.8 mmol/L Normal 3.3-5.1 [facility] Comment on above: Performed By: #### L 100.0100, L500.4050 ####[facility] [address] [place], [address] Sodium [Moles/Vol] 142 mmol/L Normal 133-145 [facility] Comment on above: Performed By: #### L 100.0100, L500.4050 ####[facility] [address] [place], [address] T PROT 6.4 g/dL Normal 5.9-8.4 [facility] Comment on above: Performed By: #### L 100.0100, L500.4050 ####[facility] [address] [place], [address] Urea nitrogen [Mass/Vol] 32 mg/dL High 4-19 [facility] Comment on above: Performed By: #### L 100.0100, L500.4050 ####[facility] [address] [place], [address] Legionella Antigen Urineon 1 LEGU Normal [facility] Comment on above: Performed By: #### M 300.4600, M300.4500 ####[facility] [address] [place], [address] M100.019on 09-20-2025 M100.019 Negative Normal [facility] Comment on above: Performed By: #### M 100.019 ####[facility] [address] [place], [address] RESPIRATORY PANEL MOLECULARo n 09-20-2025 RP PANEL Normal [facility] Comment on above: Performed By: #### M 100.638 ####[facility] [address] [place], [address] Strep pneumoniae Antig(UR,CS F)on 09-20-2025 STPAG Normal [facility] Comment on above: Performed By: #### M 300.4600, M300.4500 ####[facility] [address] [place], [address] Urine Cultureon 09-20-2025 URC Culture exhibits no growth. Normal [facility] Comment on above: Performed By: #### M 100.2200 ####[facility] [address] [place], [address] Basic Metabolic Profile (BMP )on 09-19-2025 BUN/CRE 20.3 RATIO High 09-11 [facility] Comment on above: Performed By: #### L 503.7505, L100.0100, L500.2500, L503.6005 ####[facility] [address] [place], [address] Calcium [Mass/Vol] 8.4 mg/dL Normal 7.6-11.0 [facility] Comment on above: Performed By: #### L 503.7505, L100.0100, L500.2500, L503.6005 ####[facility] [address] [place], [address] Chloride [Moles/Vol] 102 mmol/L Normal 98-108 [facility] Comment on above: Performed By: #### L 503.7505, L100.0100, L500.2500, L503.6005 ####[facility] [address] [place], [address] CO2 [Moles/Vol] 27.1 mmol/L Normal 21.0-32.0 [facility] Comment on above: Performed By: #### L 503.7505, L100.0100, L500.2500, L503.6005 ####[facility] [address] [place], [address] Creatinine [Mass/Vol] 1.45 mg/dL High 0.70-1.20 [facility] Comment on above: Performed By: #### L 503.7505, L100.0100, L500.2500, L503.6005 ####[facility] [address] [place], [address] ECRCL 35.89 ml/min Low 50-250 [facility] Comment on above: Performed By: #### L 503.7505, L100.0100, L500.2500, L503.6005 ####[facility] [address] [place], [address] GAP 12 Normal 5-15 [facility] Comment on above: Performed By: #### L 503.7505, L100.0100, L500.2500, L503.6005 ####[facility] [address] [place], [address] GFR/1.73 sq M.predicted among non-blacks MDRD (S/P/Bld) [Vol rate/Area] 47 mL/min/{1.73_m2} Low >60 [facility] Comment on above: Result Comment: mL/m in/1.73m2 CKD-EPI Creatinine Equation (2020) Performed By: #### L 503.7505, L100.0100, L500.2500, L503.6005 ####[facility] [address] [place], [address] Glucose [Mass/Vol] 150 mg/dL High 70-99 [facility] Comment on above: Performed By: #### L 503.7505, L100.0100, L500.2500, L503.6005 ####[facility] [address] [place], [address] Potassium [Moles/Vol] 3.8 mmol/L Normal 3.3-5.1 [facility] Comment on above: Performed By: #### L 503.7505, L100.0100, L500.2500, L503.6005 ####[facility] [address] [place], [address] Sodium [Moles/Vol] 142 mmol/L Normal 133-145 [facility] Comment on above: Performed By: #### L 503.7505, L100.0100, L500.2500, L503.6005 ####[facility] [address] [place], [address] Urea nitrogen [Mass/Vol] 30 mg/dL High 4-19 [facility] Comment on above: Performed By: #### L 503.7505, L100.0100, L500.2500, L503.6005 ####[facility] [address] [place], [address] Blood Gases by [facility] 10-28-2 [facility] TORSTEN TEST N/A Normal [facility] Comment on above: Performed By: #### L 9000.0800 ####[facility] [address] [place], [address] Base excess Calc (Bld) [Moles/Vol] 6 mmol/L High -2 to +2 [facility] Comment on above: Performed By: #### L 9000.0800 ####[facility] [address] [place], [address] Blood Gas Type ART Normal [facility] Comment on above: Performed By: #### L 9000.0800 ####[facility] [address] [place], [address] CO2 [Moles/Vol] 32 mmol/L Normal [facility] Comment on above: Performed By: #### L 9000.0800 ####[facility] [address] [place], [address] HCO3 (Bld) [Moles/Vol] 30.2 mmol/L High 22-26 [facility] Comment on above: Performed By: #### L 9000.0800 ####[facility] [address] [place], [address] Mode Not entered Normal [facility] Comment on above: Performed By: #### L 9000.0800 ####[facility] [address] [place], [address] O2 Delivery Dev Room Air Normal [facility] Comment on above: Performed By: #### L 9000.0800 ####[facility] [address] [place], [address] pCO2 45.1 mmHg High 35-45 [facility] Comment on above: Performed By: #### L 9000.0800 ####[facility] [address] [place], [address] pH (Bld) 7.43 [pH] Normal 7.35-7.45 [facility] Comment on above: Performed By: #### L 9000.0800 ####[facility] [address] [place], [address] PO2 62 mmHG Low 75-100 [facility] Comment on above: Performed By: #### L 9000.0800 ####[facility] [address] [place], [address] SITE R Brach Normal [facility] Comment on above: Performed By: #### L 9000.0800 ####[facility] [address] [place], [address] SO2 92 Low 94-98 [facility] Comment on above: Performed By: #### L 9000.0800 ####[facility] [address] [place], [address] CBC W/Diff, Automatedon 10-2 Absolute Lymph 2.57 X10 3/uL Normal 0.83-4.51 [facility] Comment on above: Performed By: #### L 503.7505, L100.0100, L500.2500, L503.6005 ####[facility] [address] [place], [address] Absolute Neut 8.6 X10 3/uL High 2.0-7.7 [facility] Comment on above: Performed By: #### L 503.7505, L100.0100, L500.2500, L503.6005 ####[facility] [address] [place], [address] Basophils/100 WBC (Bld) 0.2 % Normal 0-1 [facility] Comment on above: Performed By: #### L 503.7505, L100.0100, L500.2500, L503.6005 ####[facility] [address] [place], [address] Eosinophils/100 WBC (Bld) 0.1 % Normal 0-5 [facility] Comment on above: Performed By: #### L 503.7505, L100.0100, L500.2500, L503.6005 ####[facility] [address] [place], [address] Erythrocyte distribution width (RBC) [Ratio] 19.1 % High 11.6-14.6 [facility] Comment on above: Performed By: #### L 503.7505, L100.0100, L500.2500, L503.6005 ####[facility] [address] [place], [address] Hematocrit (Bld) [Volume fraction] 28.6 % Low 40-54 [facility] Comment on above: Performed By: #### L 503.7505, L100.0100, L500.2500, L503.6005 ####[facility] [address] [place], [address] Hemoglobin (Bld) [Mass/Vol] 8.3 g/dL Low 13.0-16.5 [facility] Comment on above: Performed By: #### L 503.7505, L100.0100, L500.2500, L503.6005 ####[facility] [address] [place], [address] IG% 2.200 High 0.0-0.9 [facility] Comment on above: Result Comment: IG% - Immature Granulocytes (promyelocytes, myelocytes andmetamyelocytes) > 1% indicates that a LEFT SHIFT is Present. Performed By: #### L 503.7505, L100.0100, L500.2500, L503.6005 ####[facility] [address] [place], [address] Lymphocytes/100 WBC (Bld) 20.8 % Normal 19-41 [facility] Comment on above: Performed By: #### L 503.7505, L100.0100, L500.2500, L503.6005 ####[facility] [address] [place], [address] MCH (RBC) [Entitic mass] 24.3 pg Low 27.0-32.0 [facility] Comment on above: Performed By: #### L 503.7505, L100.0100, L500.2500, L503.6005 ####[facility] [address] [place], [address] MCHC (RBC) [Mass/Vol] 29.0 g/dL Low 32-36 [facility] Comment on above: Performed By: #### L 503.7505, L100.0100, L500.2500, L503.6005 ####[facility] [address] [place], [address] MCV (RBC) [Entitic vol] 83.6 fL Normal 80-94 [facility] Comment on above: Performed By: #### L 503.7505, L100.0100, L500.2500, L503.6005 ####[facility] [address] [place], [address] Monocytes/100 WBC (Bld) 7.3 % Normal 0-10 [facility] Comment on above: Performed By: #### L 503.7505, L100.0100, L500.2500, L503.6005 ####[facility] [address] [place], [address] Neutrophils/100 WBC (Bld) 69.4 % Normal 47-70 [facility] Comment on above: Performed By: #### L 503.7505, L100.0100, L500.2500, L503.6005 ####[facility] [address] [place], [address] Nucleated RBC (Bld) [#/Vol] 0 10*3/uL Normal 0-5 [facility] Comment on above: Performed By: #### L 503.7505, L100.0100, L500.2500, L503.6005 ####[facility] [address] [place], [address] Platelet mean volume (Bld) [Entitic vol] 9.3 fL Normal 6.2-12.0 [facility] Comment on above: Performed By: #### L 503.7505, L100.0100, L500.2500, L503.6005 ####[facility] [address] [place], [address] Platelets (Bld) [#/Vol] 277 10*3/uL Normal 150-450 [facility] Comment on above: Performed By: #### L 503.7505, L100.0100, L500.2500, L503.6005 ####[facility] [address] [place], [address] RBC (Bld) [#/Vol] 3.42 10*6/uL Low 4.6-6.2 [facility] Comment on above: Performed By: #### L 503.7505, L100.0100, L500.2500, L503.6005 ####[facility] [address] [place], [address] RDW SD 56.9 fl High 35.1-43.9 [facility] Comment on above: Performed By: #### L 503.7505, L100.0100, L500.2500, L503.6005 ####[facility] [address] [place], [address] WBC (Bld) [#/Vol] 12.4 10*3/uL High 4.4-11.0 [facility] Comment on above: Performed By: #### L 503.7505, L100.0100, L500.2500, L503.6005 ####[facility] [address] [place], [address] CTA Chest W/WO Contraston CTA Chest W/WO Contrast Normal [facility] Emergency Department Summary on 09-19-2025 Emergency Department Summary Normal [facility] H AND P Exam - Hospitaliston 09-19-2025 H&P Exam - Hospitalist Normal [facility] L509.7001on 09-19-2025 Procalcitonin 0.37 ng/mL High <=0.10 [facility] Comment on above: Result Comment: Inte rpretation:<0.10-0.25 ng/mL: Antibiotic therapy discouraged. Bacterialinfection unlikely.0.25-0.50 ng/mL: Antibiotic therapy encouraged. Bacterialinfection possible.>0.50 ng/mL: Antibiotic therapy strongly encouraged.Suggestive of presence of bacterial infection.PCT should always be interpreted in the clinical context ofthe patient. Therefore, clinicians should use the PCTresults in conjunction with other laboratory findings andclinical signs of the patient. Performed By: #### L 509.7001 ####[facility] [address] [place], [address] Lactic Acidon 09-19-2025 Lactate [Moles/Vol] 2.2 mmol/L Invalid Interpretation Code 0.0-2.0 [facility] Comment on above: Result Comment: Crit ical Result(s) Called at: 2225 09/19/2025 by: AICHA ??Results read back by same. Performed By: #### L 503.6005 ####[facility] [address] [place], [address] Lactate [Moles/Vol] 3.5 mmol/L Invalid Interpretation Code 0.0-2.0 [facility] Comment on above: Order Comment: Y Result Comment: Crit ical Result(s) Called at: 1804 09/19/2025 by: KENRICK??Results read back by same. Performed By: #### L 503.7505, L100.0100, L500.2500, L503.6005 ####[facility] [address] [place], [address] Magnesiumon 09-19-2025 Magnesium [Mass/Vol] 1.8 mg/dL Normal 1.5-2.2 [facility] Comment on above: Order Comment: Comme nts: May add to ED labsComments: may add to ED labs Performed By: #### L 501.5200, L501.2300 ####[facility] [address] [place], [address] Phosphoruson 09-19-2025 Phosphate [Mass/Vol] 3.1 mg/dL Normal 2.7-4.5 [facility] Comment on above: Order Comment: Comme nts: May add to ED labsComments: may add to ED labs Performed By: #### L 501.5200, L501.2300 ####[facility] [address] [place], [address] Pro- Brain NATRIURETIC PEPTI Betsy 09-19-2025 Natriuretic peptide B (Bld) [Mass/Vol] 42420 pg/mL High <=1800 [facility] Comment on above: Result Comment: Hear t Failure Unlikely: < 300 pg/mLHeart Failure Likely< 50 Years: > 450 pg/mL50-75 Years: > 900 pg/mL>75 Years: > 1800 pg/mL Performed By: #### L 503.7505, L100.0100, L500.2500, L503.6005 ####[facility] [address] [place], [address] Urinalysis, Completeon 09-19 BACTERIA 2+ /hpf Normal None Seen [facility] Comment on above: Order Comment: CLEAN CATCH Performed By: #### L 400.0001 ####[facility] [address] [place], [address] CAST,HYALINE 0-5 SEEN Normal 0-5 [facility] Comment on above: Order Comment: CLEAN CATCH Performed By: #### L 400.0001 ####[facility] [address] [place], [address] Mucus Ql (Urine sed) 1+ /hpf Normal [facility] Comment on above: Order Comment: CLEAN CATCH Performed By: #### L 400.0001 ####[facility] [address] [place], [address] RBC 0-5 SEEN Normal 0-5 [facility] Comment on above: Order Comment: CLEAN CATCH Performed By: #### L 400.0001 ####[facility] [address] [place], [address] WBC 0-5 SEEN Normal 0-5 [facility] Comment on above: Order Comment: CLEAN CATCH Performed By: #### L 400.0001 ####[facility] [address] [place], [address] EPI,SQUAMOUS 0 SEEN Normal 0-5 [facility] Comment on above: Order Comment: CLEAN CATCH Performed By: #### L 400.0001 ####[facility] [address] [place], [address] Venous Duplex Imag/Limited/U nion 09-19-2025 Venous Duplex Imag/Limited/Uni Normal [facility] CBC-Complete Blood Cnt No Di ffon 09-18-2025 Erythrocyte distribution width (RBC) [Ratio] 19.9 % High 11.6-14.6 [facility] Comment on above: Order Comment: 125.2 Performed By: #### L 100.0500 ####[facility] [address] [place], [address] Hematocrit (Bld) [Volume fraction] 25.8 % Low 40-54 [facility] Comment on above: Order Comment: 125.2 Performed By: #### L 100.0500 ####[facility] [address] [place], [address] Hemoglobin (Bld) [Mass/Vol] 8.4 g/dL Low 13.0-16.5 [facility] Comment on above: Order Comment: 125.2 Performed By: #### L 100.0500 ####[facility] [address] [place], [address] MCH (RBC) [Entitic mass] 27.8 pg Normal 27.0-32.0 [facility] Comment on above: Order Comment: 125.2 Performed By: #### L 100.0500 ####[facility] [address] [place], [address] MCHC (RBC) [Mass/Vol] 32.6 g/dL Normal 32-36 [facility] Comment on above: Order Comment: 125.2 Performed By: #### L 100.0500 ####[facility] [address] [place], [address] MCV (RBC) [Entitic vol] 85.4 fL Normal 80-94 [facility] Comment on above: Order Comment: 125.2 Performed By: #### L 100.0500 ####[facility] [address] [place], [address] Platelet mean volume (Bld) [Entitic vol] 9.6 fL Normal 6.2-12.0 [facility] Comment on above: Order Comment: 125.2 Performed By: #### L 100.0500 ####[facility] [address] [place], [address] Platelets (Bld) [#/Vol] 259 10*3/uL Normal 150-450 [facility] Comment on above: Order Comment: 125.2 Performed By: #### L 100.0500 ####[facility] [address] [place], [address] RBC (Bld) [#/Vol] 3.02 10*6/uL Low 4.6-6.2 [facility] Comment on above: Order Comment: 125.2 Performed By: #### L 100.0500 ####[facility] [address] [place], [address] RDW SD 57.1 fl High 35.1-43.9 [facility] Comment on above: Order Comment: 125.2 Performed By: #### L 100.0500 ####[facility] [address] [place], [address] WBC (Bld) [#/Vol] 11.7 10*3/uL High 4.4-11.0 [facility] Comment on above: Order Comment: 125.2 Performed By: #### L 100.0500 ####[facility] [address] [place], [address] Basic Metabolic Profile (BMP )on 09-13-2025 BUN Normal 4-19 [facility] Comment on above: Order Comment: 125.2 Result Comment: LABS WERE DONE 09/11 DOES NOT NEED REPEATED 10/[address] CASTILLO Performed By: #### L 500.2500, L100.0100 ####[facility] [address] [place], [address] BUN/CRE Normal 10- [facility] Comment on above: Order Comment: 125.2 Result Comment: LABS WERE DONE 09/11 DOES NOT NEED REPEATED / PER NURSELINYAYA AND DR CASTILLO Performed By: #### L 500.2500, L100.0100 ####[facility] [address] [place], [address] Calcium Normal 7.6-11.0 [facility] Comment on above: Order Comment: 125.2 Result Comment: LABS WERE DONE 09/11 DOES NOT NEED REPEATED / PER NURSELINYAYA AND DR CASTILLO Performed By: #### L 500.2500, L100.0100 ####[facility] [address] [place], [address] CL Normal 98-108 [facility] Comment on above: Order Comment: 125.2 Result Comment: LABS WERE DONE 09/11 DOES NOT NEED REPEATED 10/ PER NURSEGAGAN AND DR CASTILLO Performed By: #### L 500.2500, L100.0100 ####[facility] [address] [place], [address] CO2 Normal 21.0-32.0 [facility] Comment on above: Order Comment: 125.2 Result Comment: LABS WERE DONE 09/11 DOES NOT NEED REPEATED 10/22 PER NURSELINYAYA AND DR CASTILLO Performed By: #### L 500.2500, L100.0100 ####[facility] [address] [place], [address] CREAT,SERUM Normal 0.70-1.20 [facility] Comment on above: Order Comment: 125.2 Result Comment: LABS WERE DONE 09/11 DOES NOT NEED REPEATED 10/22 PER NURSELINYAYA AND DR CASTILLO Performed By: #### L 500.2500, L100.0100 ####[facility] [address] [place], [address] eGFR Normal >60 [facility] Comment on above: Order Comment: 125.2 Result Comment: LABS WERE DONE 09/11 DOES NOT NEED REPEATED 10/22 PER NURSELINYAYA AND DR CASTILLO Performed By: #### L 500.2500, L100.0100 ####[facility] [address] [place], [address] GAP Normal 5-15 [facility] Comment on above: Order Comment: 125.2 Result Comment: LABS WERE DONE 09/11 DOES NOT NEED REPEATED 10/ PER VIANEY AND DR CASTILLO Performed By: #### L 500.2500, L100.0100 ####[facility] [address] [place], [address] GLU Normal 70-99 [facility] Comment on above: Order Comment: 125.2 Result Comment: LABS WERE DONE 09/11 DOES NOT NEED REPEATED 10/[address] CASTILLO Performed By: #### L 500.2500, L100.0100 ####[facility] [address] [place], [address] Potassium Normal 3.3-5.1 [facility] Comment on above: Order Comment: 125.2 Result Comment: LABS WERE DONE 09/11 DOES NOT NEED REPEATED 10/22 PER NURSELINYAYA AND DR CASTILLO Performed By: #### L 500.2500, L100.0100 ####[facility] [address] [place], [address] Basic Metabolic Profile (BMP) Normal 133-145 [facility] Comment on above: Order Comment: 125.2 Result Comment: LABS WERE DONE 09/11 DOES NOT NEED REPEATED 10/[address]Y AND DR CASTILLO Performed By: #### L 500.2500, L100.0100 ####[facility] [address] [place], [address] CBC W/Diff, Automatedon 08-24 Absolute Neut Normal 2.0-7.7 [facility] Comment on above: Order Comment: 125.2 Result Comment: LABS WERE DONE 09/11 DOES NOT NEED REPEATED 10/[address] AND DR CASTILLO Performed By: #### L 500.2500, L100.0100 ####[facility] [address] [place], [address] HCT Normal 40-54 [facility] Comment on above: Order Comment: 125.2 Result Comment: LABS WERE DONE 09/11 DOES NOT NEED REPEATED 10/22 PER [address]URSELINYAYA AND DR CASTILLO Performed By: #### L 500.2500, L100.0100 ####[facility] [address] [place], [address] HGB Normal 13.0-16.5 [facility] Comment on above: Order Comment: 125.2 Result Comment: LABS WERE DONE 09/11 DOES NOT NEED REPEATED 10/22 PER [address]URSELINYAYA AND DR CASTILLO Performed By: #### L 500.2500, L100.0100 ####[facility] [address] [place], [address] MCH Normal 27.0-32.0 [facility] Comment on above: Order Comment: 125.2 Result Comment: LABS WERE DONE 09/11 DOES NOT NEED REPEATED 10/[address] CASTILLO Performed By: #### L 500.2500, L100.0100 ####[facility] [address] [place], [address] MCHC Normal 32-36 [facility] Comment on above: Order Comment: 125.2 Result Comment: LABS WERE DONE 09/11 DOES NOT NEED REPEATED 10/22 [address]Y AND DR CASTILLO Performed By: #### L 500.2500, L100.0100 ####[facility] [address] [place], [address] MCV Normal 80-94 [facility] Comment on above: Order Comment: 125.2 Result Comment: LABS WERE DONE 09/11 DOES NOT NEED REPEATED 10/[address] CASTILLO Performed By: #### L 500.2500, L100.0100 ####[facility] [address] [place], [address] NEUT% Normal 47-70 [facility] Comment on above: Order Comment: 125.2 Result Comment: LABS WERE DONE 09/11 DOES NOT NEED REPEATED 10/[address] DR CASTILLO Performed By: #### L 500.2500, L100.0100 ####[facility] [address] [place], [address] PLT Normal 150-450 [facility] Comment on above: Order Comment: 125.2 Result Comment: LABS WERE DONE 09/11 DOES NOT NEED REPEATED 10/[address] DR CASTILLO Performed By: #### L 500.2500, L100.0100 ####[facility] [address] [place], [address] RBC Normal 4.6-6.2 [facility] Comment on above: Order Comment: 125.2 Result Comment: LABS WERE DONE 09/11 DOES NOT NEED REPEATED 10/22 [address]Y AND DR CASTILLO Performed By: #### L 500.2500, L100.0100 ####[facility] [address] [place], [address] RDW CV Normal 11.6-14.6 [facility] Comment on above: Order Comment: 125.2 Result Comment: LABS WERE DONE 09/11 DOES NOT NEED REPEATED 10/[address]Y AND DR CASTILLO Performed By: #### L 500.2500, L100.0100 ####[facility] [address] [place], [address] RDW SD Normal 35.1-43.9 [facility] Comment on above: Order Comment: 125.2 Result Comment: LABS WERE DONE 09/11 DOES NOT NEED REPEATED 09/13 [address]A [address] CASTILLO Performed By: #### L 500.2500, L100.0100 ####[facility] [address] [place], [address] WBC Normal 4.4-11.0 [facility] Comment on above: Order Comment: 125.2 Result Comment: LABS WERE DONE 09/11 DOES NOT NEED REPEATED 09/13 [address]AYA AND DR CASTILLO Performed By: #### L 500.2500, L100.0100 ####[facility] [address] [place], [address] Basic Metabolic Profile (BMP )on 09-11-2024 BUN/CRE 20.8 RATIO High 09-11 [facility] Comment on above: Order Comment: 125.2 Performed By: #### L 500.2500, L100.0500 ####[facility] [address] [place], [address] Calcium [Mass/Vol] 8.1 mg/dL Normal 7.6-11.0 [facility] Comment on above: Order Comment: 125.2 Performed By: #### L 500.2500, L100.0500 ####[facility] [address] [place], [address] Chloride [Moles/Vol] 101 mmol/L Normal 98-108 [facility] Comment on above: Order Comment: 125.2 Performed By: #### L 500.2500, L100.0500 ####[facility] [address] [place], [address] CO2 [Moles/Vol] 28.7 mmol/L Normal 21.0-32.0 [facility] Comment on above: Order Comment: 125.2 Performed By: #### L 500.2500, L100.0500 ####[facility] [address] [place], [address] Creatinine [Mass/Vol] 1.12 mg/dL Normal 0.70-1.20 [facility] Comment on above: Order Comment: 125.2 Performed By: #### L 500.2500, L100.0500 ####[facility] [address] [place], [address] GAP 10 Normal 5-15 [facility] Comment on above: Order Comment: 125.2 Performed By: #### L 500.2500, L100.0500 ####[facility] [address] [place], [address] GFR/1.73 sq M.predicted among non-blacks MDRD (S/P/Bld) [Vol rate/Area] 64 mL/min/{1.73_m2} Normal >60 [facility] Comment on above: Order Comment: 125.2 Result Comment: mL/m in/1.73m2 CKD-EPI Creatinine Equation (2020) Performed By: #### L 500.2500, L100.0500 ####[facility] [address] [place], [address] Glucose [Mass/Vol] 104 mg/dL High 70-99 [facility] Comment on above: Order Comment: 125.2 Performed By: #### L 500.2500, L100.0500 ####[facility] [address] [place], [address] Potassium [Moles/Vol] 3.7 mmol/L Normal 3.3-5.1 [facility] Comment on above: Order Comment: 125.2 Performed By: #### L 500.2500, L100.0500 ####[facility] [address] [place], [address] Sodium [Moles/Vol] 140 mmol/L Normal 133-145 [facility] Comment on above: Order Comment: 125.2 Performed By: #### L 500.2500, L100.0500 ####[facility] [address] [place], [address] Urea nitrogen [Mass/Vol] 23 mg/dL High 4-19 [facility] Comment on above: Order Comment: 125.2 Performed By: #### L 500.2500, L100.0500 ####[facility] [address] [place], [address] CBC-Complete Blood Cnt No Di ffon 09-11-2025 Erythrocyte distribution width (RBC) [Ratio] 18.6 % High 11.6-14.6 [facility] Comment on above: Order Comment: 125.2 Performed By: #### L 500.2500, L100.0500 ####[facility] [address] [place], [address] Hematocrit (Bld) [Volume fraction] 26.4 % Low 40-54 [facility] Comment on above: Order Comment: 125.2 Performed By: #### L 500.2500, L100.0500 ####[facility] [address] [place], [address] Hemoglobin (Bld) [Mass/Vol] 8.0 g/dL Low 13.0-16.5 [facility] Comment on above: Order Comment: 125.2 Performed By: #### L 500.2500, L100.0500 ####[facility] [address] [place], [address] MCH (RBC) [Entitic mass] 25.6 pg Low 27.0-32.0 [facility] Comment on above: Order Comment: 125.2 Performed By: #### L 500.2500, L100.0500 ####[facility] [address] [place], [address] MCHC (RBC) [Mass/Vol] 30.3 g/dL Low 32-36 [facility] Comment on above: Order Comment: 125.2 Performed By: #### L 500.2500, L100.0500 ####[facility] [address] [place], [address] MCV (RBC) [Entitic vol] 84.6 fL Normal 80-94 [facility] Comment on above: Order Comment: 125.2 Performed By: #### L 500.2500, L100.0500 ####[facility] [address] [place], [address] Platelet mean volume (Bld) [Entitic vol] 8.9 fL Normal 6.2-12.0 [facility] Comment on above: Order Comment: 125.2 Performed By: #### L 500.2500, L100.0500 ####[facility] [address] [place], [address] Platelets (Bld) [#/Vol] 229 10*3/uL Normal 150-450 [facility] Comment on above: Order Comment: 125.2 Performed By: #### L 500.2500, L100.0500 ####[facility] [address] [place], [address] RBC (Bld) [#/Vol] 3.12 10*6/uL Low 4.6-6.2 [facility] Comment on above: Order Comment: 125.2 Performed By: #### L 500.2500, L100.0500 ####[facility] [address] [place], [address] RDW SD 54.8 fl High 35.1-43.9 [facility] Comment on above: Order Comment: 125.2 Performed By: #### L 500.2500, L100.0500 ####[facility] [address] [place], [address] WBC (Bld) [#/Vol] 13.6 10*3/uL High 4.4-11.0 [facility] Comment on above: Order Comment: 125.2 Performed By: #### L 500.2500, L100.0500 ####[facility] [address] [place], [place], [address] Ankle Brachial Indexon 09-01 Ankle Brachial Index Normal [facility] US Art Duplex Unilat Lower E xton 09-01-2025 US Art Duplex Unilat Lower Ext Normal [facility] BRCon 08-24-2025 RC Normal [facility] Comment on above: Result Comment: [id number] OP RC TRANSFUSED 08/24/25 0956 Performed By: #### B ALYSE, [facility] ####[facility] [address] [place], [place], [address] MR/BMS.BVSon 08-24-2025 MR/BMS.BVS Normal [facility] Type AND Screenon 08-24-2025 Ab SCREEN GEL Negative Normal [facility] Comment on above: Order Comment: NTNYA Performed By: #### B ALYSE, [facility] ####[facility] [address] [place], [place], [address] Absolute lymphocyte countOrd ered By: Trixie Pang on 08-23-2025 Lymphocytes Auto (Unsp spec) [#/Vol] 1.87 10*3/uL 0.83-4.51 [facility] Anion gap in Serum or Plasma Ordered By: Trixie Pang on 08-23-2025 Anion gap [Moles/Vol] 10 mmol/L 5-15 [facility] Automated lymphocyte count a s percentage of total leukocytesOrdered By: Trixie Pang on 08-23-2025 Lymphocytes/100 WBC Auto (Unsp spec) 32.2 % - [facility] BUN/creatinine ratioOrdered By: Trixie Pang on 08-23-2025 Urea nitrogen/Creatinine [Mass ratio] 11.2 mg/mg 10- [facility] Basophil percentageOrdered B y: Trixie Pang on 08-23-2025 Basophils/100 WBC (Bld) 0.2 % 0-1 [facility] Carbon dioxide, total [Moles /volume] in Central venous bloodOrdered By: Trixie Pang on 08-23-2025 CO2 [Moles/Vol] 26.3 mmol/L 21.0-32.0 [facility] Chloride assayOrdered By: Bandar Pang on 08-23-2025 Chloride [Moles/Vol] 101 mmol/L 98-108 [facility] Eosinophil percentageOrdered By: Trixie Pang on 08-23-2025 Eosinophils/100 WBC (Bld) 0.3 % 0-5 [facility] Erythrocyte distribution wid th ratioOrdered By: Trixie Pang on 08-23-2025 Erythrocyte distribution width (RBC) [Ratio] 17.3 % High 11.6-14.6 [facility] Erythrocyte distribution wid th standard deviationOrdered By: Trixie Pang on 08-23-2025 Erythrocyte distribution width (RBC) [Ratio] 50.4 fl High 35.1-43.9 [facility] Glomerular filtration rate ( GFR) estimation/1.73 sq m using serum, plasma, or whole bOrdered By: Trixie Pang on 08-23-2025 GFR/1.73 sq M.predicted among non-blacks MDRD (S/P/Bld) [Vol rate/Area] 83 mL/min/{1.73_m2} >60 [facility] Hematocrit Auto (Bld) [Volum e fraction]Ordered By: Trixie Pang on 08-23-2025 Hematocrit (Bld) [Volume fraction] 24.7 % Low 40-54 [facility] Hemoglobin measurementOrdere d By: Trixie Pang on 08-23-2025 Hemoglobin (Bld) [Mass/Vol] 7.6 g/dL Low 13.0-16.5 [facility] Immature granulocytes/100 WB C Auto (Bld)Ordered By: Trixie Pang on 08-23-2025 Immature granulocytes/100 WBC (Bld) 1.000 % High 0.0-0.9 [facility] MCV (mean corpuscular volume ) determinationOrdered By: Trixie Pang on 08-23-2025 MCV (RBC) [Entitic vol] 81.8 fL 80-94 [facility] Mean corpuscular hemoglobin (MCH) determinationOrdered By: Trixie Pang on 08-23-2025 MCH (RBC) [Entitic mass] 25.2 pg Low 27.0-32.0 [facility] Monocyte percentageOrdered B y: Trixie Pang on 08-23-2025 Monocytes/100 WBC (Bld) 14.8 % High 0-10 [facility] Neutrophil percentageOrdered By: Trixie Pang on 08-23-2025 Neutrophils/100 WBC (Bld) 51.5 % 47-70 [facility] Platelet countOrdered By: Bandar al Molinashelia on 08-23-2025 Platelets (Bld) [#/Vol] 220 10*3/uL 150-450 [facility] Potassium measurement (mass/ volume)Ordered By: Bandarnicolmanifortunato Augustechristophemiranda on 08-23-2025 Potassium (Unsp spec) [Mass/Vol] 4.0 mmol/L 3.3-5.1 [facility] RBC Auto (Bld) [#/Vol]Ordere d By: Trixie Pang on 08-23-2025 RBC (Bld) [#/Vol] 3.02 10*6/uL Low 4.6-6.2 [facility] Serum creatinine measurement (mass/volume)Ordered By: Bandarnicolmanifortunato Augustechristophemiranda on 08-23-2025 Creatinine [Mass/Vol] 0.90 mg/dL 0.70-1.20 [facility] Serum glucose measurement (m ass/volume)Ordered By: Bandarnicolmanifortunato Augustechristophemiranda on 08-23-2025 Glucose [Mass/Vol] 95 mg/dL 70-99 [facility] Serum or plasma calcium donna urement (mass/volume)Ordered By: Trixie Molinachristophemiranda on 08-23-2025 Calcium [Mass/Vol] 8.2 mg/dL 7.6-11.0 [facility] Serum or plasma urea nitroge n measurement (mass/volume)Ordered By: Bandarnicolmanifortunato Augustechristophemiranda on 08-23-2025 Urea nitrogen [Mass/Vol] 10 mg/dL 4-19 [facility] Sodium levelOrdered By: Ian brodyjuice Bird on 08-23-2025 Sodium [Moles/Vol] 137 mmol/L 133-145 [facility] White blood cell (WBC) count Ordered By: Trixie Pang on 08-23-2025 WBC (Bld) [#/Vol] 5.8 10*3/uL 4.4-11.0 [facility] Absolute lymphocyte countOrd ered By: Trixie Pang on 08-16-2025 Lymphocytes Auto (Unsp spec) [#/Vol] 1.56 10*3/uL 0.83-4.51 [facility] Anion gap in Serum or Plasma Ordered By: Trixie Pang on 08-16-2025 Anion gap [Moles/Vol] 10 mmol/L 5-15 [facility] Automated lymphocyte count a s percentage of total leukocytesOrdered By: Trixie Pang on 08-16-2025 Lymphocytes/100 WBC Auto (Unsp spec) 17.8 % Low 19-41 [facility] BUN/creatinine ratioOrdered By: Trixie Pang on 08-16-2025 Urea nitrogen/Creatinine [Mass ratio] 18.1 mg/mg 10-20 [facility] Basophil percentageOrdered B y: Trixie Pang on 08-16-2025 Basophils/100 WBC (Bld) 0.1 % 0-1 [facility] Bilirubin directOrdered By: Trixie Pang on 08-16-2025 Bilirubin.direct [Mass/Vol] 0.21 mg/dL 0.00-0.30 [facility] Bilirubin, totalOrdered By: Trixie Pang on 08-16-2025 Bilirubin [Mass/Vol] 0.39 mg/dL 0.00-1.30 [facility] Carbon dioxide, total [Moles /volume] in Central venous bloodOrdered By: Trixie Pang on 08-16-2025 CO2 [Moles/Vol] 25.7 mmol/L 21.0-32.0 [facility] Chloride assayOrdered By: Bandar Pang on 08-16-2025 Chloride [Moles/Vol] 99 mmol/L 98-108 [facility] Eosinophil percentageOrdered By: Trixie Pang on 08-16-2025 Eosinophils/100 WBC (Bld) 0.5 % 0-5 [facility] Erythrocyte distribution wid th ratioOrdered By: Trixie Pang on 08-16-2025 Erythrocyte distribution width (RBC) [Ratio] 17.5 % High 11.6-14.6 [facility] Erythrocyte distribution wid th standard deviationOrdered By: Trixie Pang on 08-16-2025 Erythrocyte distribution width (RBC) [Ratio] 51.3 fl High 35.1-43.9 [facility] Glomerular filtration rate ( GFR) estimation/1.73 sq m using serum, plasma, or whole bOrdered By: Trixie Pang on 08-16-2025 GFR/1.73 sq M.predicted among non-blacks MDRD (S/P/Bld) [Vol rate/Area] 67 mL/min/{1.73_m2} >60 [facility] Hematocrit Auto (Bld) [Volum e fraction]Ordered By: Trixie Pang on 08-16-2025 Hematocrit (Bld) [Volume fraction] 25.9 % Low 40-54 [facility] Hemoglobin measurementOrdere d By: Trixie Pang on 08-16-2025 Hemoglobin (Bld) [Mass/Vol] 7.7 g/dL Low 13.0-16.5 [facility] Immature granulocytes/100 WB C Auto (Bld)Ordered By: Trixie Pang on 08-16-2025 Immature granulocytes/100 WBC (Bld) 1.400 % High 0.0-0.9 [facility] MCV (mean corpuscular volume ) determinationOrdered By: Trixie Pang on 08-16-2025 MCV (RBC) [Entitic vol] 82.2 fL 80-94 [facility] Mean corpuscular hemoglobin (MCH) determinationOrdered By: Trixie Pang on 08-16-2025 MCH (RBC) [Entitic mass] 24.4 pg Low 27.0-32.0 [facility] Monocyte percentageOrdered B y: Trixie Pang on 08-16-2025 Monocytes/100 WBC (Bld) 13.7 % High 0-10 [facility] Neutrophil percentageOrdered By: Trixie Pang on 08-16-2025 Neutrophils/100 WBC (Bld) 66.5 % 47-70 [facility] No Panel InformationOrdered By: Bandarnicolreynaldo Molinachristophemiranda on 08-16-2025 226 U/L High <38 [facility] Platelet countOrdered By: Bandar al Molinashelia on 08-16-2025 Platelets (Bld) [#/Vol] 234 10*3/uL 150-450 [facility] Potassium measurement (mass/ volume)Ordered By: Bandarnicolmanifortunato Augusteshelia on 08-16-2025 Potassium (Unsp spec) [Mass/Vol] 4.3 mmol/L 3.3-5.1 [facility] RBC Auto (Bld) [#/Vol]Ordere d By: Trixie Molinashelia on 08-16-2025 RBC (Bld) [#/Vol] 3.15 10*6/uL Low 4.6-6.2 [facility] Serum creatinine measurement (mass/volume)Ordered By: Bandarnicolmanifortunato Augustechristophemiranda on 08-16-2025 Creatinine [Mass/Vol] 1.07 mg/dL 0.70-1.20 [facility] Serum globulin measurementOr dered By: Bandarnicolmanifortunato Augustechristophemiranda on 08-16-2025 Globulin (S) [Mass/Vol] 3.7 g/dL 2.2-4.2 [facility] Serum glucose measurement (m ass/volume)Ordered By: Bandarmikaela Augustechristophemiranda on 08-16-2025 Glucose [Mass/Vol] 103 mg/dL High 70-99 [facility] Serum or plasma alanine mccoy otransferase (ALT) measurementOrdered By: Bandarnicolmanifortunato Augustechristophemiranda on 08-16-2025 ALT [Catalytic activity/Vol] 179 U/L High <47 [facility] Serum or plasma albumin donna urement (mass/volume)Ordered By: Trixie Augustechristophemiranda on 08-16-2025 Albumin [Mass/Vol] 2.7 g/dL Low 3.4-4.8 [facility] Serum or plasma alkaline salvador sphatase measurementOrdered By: Trixie Pang on 08-16-2025 ALP [Catalytic activity/Vol] 164 U/L High 40-129 [facility] Serum or plasma calcium donna urement (mass/volume)Ordered By: Trixie Pang on 08-16-2025 Calcium [Mass/Vol] 8.4 mg/dL 7.6-11.0 [facility] Serum or plasma urea nitroge n measurement (mass/volume)Ordered By: Trixie Pang on 08-16-2025 Urea nitrogen [Mass/Vol] 19 mg/dL - [facility] Sodium levelOrdered By: Ian Pang on 08-16-2025 Sodium [Moles/Vol] 134 mmol/L 133-145 [facility] Total proteinOrdered By: Jarred Pang on 08-16-2025 Protein [Mass/Vol] 6.5 g/dL 5.9-8.4 [facility] White blood cell (WBC) count Ordered By: Trixie Pang on 08-16-2025 WBC (Bld) [#/Vol] 8.8 10*3/uL 4.4-11.0 [facility] Basic Metabolic Profile (BMP )on 08-11-2025 BUN Normal - [facility] Comment on above: Result Comment: Ritesh padilla via OM: Ordered Performed By: #### L 500.2500 ####[facility] [address] [place], [address] BUN/CRE Normal 10-20 [facility] Comment on above: Result Comment: Ritesh padilla via OM: Ordered Performed By: #### L 500.2500 ####[facility] [address] [place], [address] Calcium Normal 7.6-11.0 [facility] Comment on above: Result Comment: Ritesh padilla via OM: Ordered Performed By: #### L 500.2500 ####[facility] [address] [place], [address] CL Normal 98-108 [facility] Comment on above: Result Comment: Canc elled via OM: MD Ordered Performed By: #### L 500.2500 ####[facility] [address] [place], [address] CO2 Normal 21.0-32.0 [facility] Comment on above: Result Comment: Canc elled via OM: MD Ordered Performed By: #### L 500.2500 ####[facility] [address] [place], [address] CREAT,SERUM Normal 0.70-1.20 [facility] Comment on above: Result Comment: Canc elled via OM: MD Ordered Performed By: #### L 500.2500 ####[facility] [address] [place], [address] eGFR Normal >60 [facility] Comment on above: Result Comment: Canc elled via OM: MD Ordered Performed By: #### L 500.2500 ####[facility] [address] [place], [address] GAP Normal 5-15 [facility] Comment on above: Result Comment: Canc elled via OM: MD Ordered Performed By: #### L 500.2500 ####[facility] [address] [place], [address] GLU Normal 70-99 [facility] Comment on above: Result Comment: Canc elled via OM: MD Ordered Performed By: #### L 500.2500 ####[facility] [address] [place], [address] Potassium Normal 3.3-5.1 [facility] Comment on above: Result Comment: Canc elled via OM: MD Ordered Performed By: #### L 500.2500 ####[facility] [address] [place], [address] Basic Metabolic Profile (BMP) Normal 133-145 [facility] Comment on above: Result Comment: Canc elled via OM: MD Ordered Performed By: #### L 500.2500 ####[facility] [address] [place], [address] Culture, Blood (WB)on 2024 CUB No growth in 5 days. Normal [facility] Comment on above: Performed By: #### M 200.1000 ####[facility] [address] [place], [address] Echo Complete W/ Contraston 08-11-2025 Echo Complete W/ Contrast Normal [facility] Echocardiogram study reportO rdered By: Kenan Santamaria on 08-11-2025 Study report [facility] Work Phone: Basic Metabolic Profile (BMP )on 08-10-2025 BUN Normal 4-19 [facility] Comment on above: Result Comment: Canc elled via OM: Order cancelled - Patient discharged Performed By: #### L 500.2500, L100.0100 ####[facility] [address] [place], [address] BUN/CRE Normal 10-20 [facility] Comment on above: Result Comment: Canc elled via OM: Order cancelled - Patient discharged Performed By: #### L 500.2500, L100.0100 ####[facility] [address] [place], [address] Calcium Normal 7.6-11.0 [facility] Comment on above: Result Comment: Canc elled via OM: Order cancelled - Patient discharged Performed By: #### L 500.2500, L100.0100 ####[facility] [address] [place], [address] CL Normal 98-108 [facility] Comment on above: Result Comment: Canc elled via OM: Order cancelled - Patient discharged Performed By: #### L 500.2500, L100.0100 ####[facility] [address] [place], [address] CO2 Normal 21.0-32.0 [facility] Comment on above: Result Comment: Canc elled via OM: Order cancelled - Patient discharged Performed By: #### L 500.2500, L100.0100 ####[facility] [address] [place], [address] CREAT,SERUM Normal 0.70-1.20 [facility] Comment on above: Result Comment: Canc elled via OM: Order cancelled - Patient discharged Performed By: #### L 500.2500, L100.0100 ####[facility] [address] [place], [address] eGFR Normal >60 [facility] Comment on above: Result Comment: Canc elled via OM: Order cancelled - Patient discharged Performed By: #### L 500.2500, L100.0100 ####[facility] [address] [place], [address] GAP Normal 5-15 [facility] Comment on above: Result Comment: Canc elled via OM: Order cancelled - Patient discharged Performed By: #### L 500.2500, L100.0100 ####[facility] [address] [place], [address] GLU Normal 70-99 [facility] Comment on above: Result Comment: Canc elled via OM: Order cancelled - Patient discharged Performed By: #### L 500.2500, L100.0100 ####[facility] [address] [place], [address] Potassium Normal 3.3-5.1 [facility] Comment on above: Result Comment: Canc elled via OM: Order cancelled - Patient discharged Performed By: #### L 500.2500, L100.0100 ####[facility] [address] [place], [address] Basic Metabolic Profile (BMP) Normal 133-145 [facility] Comment on above: Result Comment: Canc elled via OM: Order cancelled - Patient discharged Performed By: #### L 500.2500, L100.0100 ####[facility] [address] [place], [address] CBC W/Diff, Automatedon 09- Absolute Neut Normal 2.0-7.7 [facility] Comment on above: Result Comment: Canc elled via OM: Order cancelled - Patient discharged Performed By: #### L 500.2500, L100.0100 ####[facility] [address] [place], [address] HCT Normal 40-54 [facility] Comment on above: Result Comment: Canc elled via OM: Order cancelled - Patient discharged Performed By: #### L 500.2500, L100.0100 ####[facility] [address] [place], [address] HGB Normal 13.0-16.5 [facility] Comment on above: Result Comment: Canc elled via OM: Order cancelled - Patient discharged Performed By: #### L 500.2500, L100.0100 ####[facility] [address] [place], [address] MCH Normal 27.0-32.0 [facility] Comment on above: Result Comment: Canc elled via OM: Order cancelled - Patient discharged Performed By: #### L 500.2500, L100.0100 ####[facility] [address] [place], [address] MCHC Normal 32-36 [facility] Comment on above: Result Comment: Canc elled via OM: Order cancelled - Patient discharged Performed By: #### L 500.2500, L100.0100 ####[facility] [address] [place], [address] MCV Normal 80-94 [facility] Comment on above: Result Comment: Canc elled via OM: Order cancelled - Patient discharged Performed By: #### L 500.2500, L100.0100 ####[facility] [address] [place], [address] NEUT% Normal 47-70 [facility] Comment on above: Result Comment: Canc elled via OM: Order cancelled - Patient discharged Performed By: #### L 500.2500, L100.0100 ####[facility] [address] [place], [address] PLT Normal 150-450 [facility] Comment on above: Result Comment: Canc elled via OM: Order cancelled - Patient discharged Performed By: #### L 500.2500, L100.0100 ####[facility] [address] [place], [address] RBC Normal 4.6-6.2 [facility] Comment on above: Result Comment: Canc elled via OM: Order cancelled - Patient discharged Performed By: #### L 500.2500, L100.0100 ####[facility] [address] [place], [address] RDW CV Normal 11.6-14.6 [facility] Comment on above: Result Comment: Canc elled via OM: Order cancelled - Patient discharged Performed By: #### L 500.2500, L100.0100 ####[facility] [address] [place], [address] RDW SD Normal 35.1-43.9 [facility] Comment on above: Result Comment: Canc elled via OM: Order cancelled - Patient discharged Performed By: #### L 500.2500, L100.0100 ####[facility] [address] [place], [address] WBC Normal 4.4-11.0 [facility] Comment on above: Result Comment: Canc elled via OM: Order cancelled - Patient discharged Performed By: #### L 500.2500, L100.0100 ####[facility] [address] [place], [address] Absolute lymphocyte countOrd ered By: Trixie Pang on 08-09-2025 Lymphocytes Auto (Unsp spec) [#/Vol] 1.61 10*3/uL 0.83-4.51 [facility] Anion gap in Serum or Plasma Ordered By: Trixie Pang on 08-09-2025 Anion gap [Moles/Vol] 10 mmol/L 5-15 [facility] Automated lymphocyte count a s percentage of total leukocytesOrdered By: Trixie Pang on 08-09-2025 Lymphocytes/100 WBC Auto (Unsp spec) 25.4 % 19-41 [facility] BUN/creatinine ratioOrdered By: nicolsouth hackensackfortunato Pang on 08-09-2025 Urea nitrogen/Creatinine [Mass ratio] 16.7 mg/mg 10- [facility] Basic Metabolic Profile (BMP )on 08-09-2025 BUN Normal 4-19 [facility] Comment on above: Result Comment: Canc elled via OM: MD Ordered Performed By: #### L 100.0100, L500.2500 ####[facility] [address] [place], [address] BUN/CRE Normal 10-20 [facility] Comment on above: Result Comment: Canc elled via OM: MD Ordered Performed By: #### L 100.0100, L500.2500 ####[facility] [address] [place], [address] Calcium Normal 7.6-11.0 [facility] Comment on above: Result Comment: Canc elled via OM: MD Ordered Performed By: #### L 100.0100, L500.2500 ####[facility] [address] [place], [address] CL Normal 98-108 [facility] Comment on above: Result Comment: Canc elled via OM: MD Ordered Performed By: #### L 100.0100, L500.2500 ####[facility] [address] [place], [address] CO2 Normal 21.0-32.0 [facility] Comment on above: Result Comment: Canc elled via OM: MD Ordered Performed By: #### L 100.0100, L500.2500 ####[facility] [address] [place], [address] CREAT,SERUM Normal 0.70-1.20 [facility] Comment on above: Result Comment: Canc elled via OM: MD Ordered Performed By: #### L 100.0100, L500.2500 ####[facility] [address] [place], [address] eGFR Normal >60 [facility] Comment on above: Result Comment: Canc elled via OM: MD Ordered Performed By: #### L 100.0100, L500.2500 ####[facility] [address] [place], [address] GAP Normal 5-15 [facility] Comment on above: Result Comment: Canc elled via OM: MD Ordered Performed By: #### L 100.0100, L500.2500 ####[facility] [address] [place], [address] GLU Normal 70-99 [facility] Comment on above: Result Comment: Canc elled via OM: MD Ordered Performed By: #### L 100.0100, L500.2500 ####[facility] [address] [place], [address] Potassium Normal 3.3-5.1 [facility] Comment on above: Result Comment: Canc elled via OM: MD Ordered Performed By: #### L 100.0100, L500.2500 ####[facility] [address] [place], [address] Basic Metabolic Profile (BMP) Normal 133-145 [facility] Comment on above: Result Comment: Canc elled via OM: MD Ordered Performed By: #### L 100.0100, L500.2500 ####[facility] [address] [place], [address] Basophil percentageOrdered B y: Trixie Pang on 08-09-2025 Basophils/100 WBC (Bld) 0.2 % 0-1 [facility] Bilirubin, totalOrdered By: Trixie Pang on 08-09-2025 Bilirubin [Mass/Vol] 0.37 mg/dL 0.00-1.30 [facility] CBC W/Diff, Automatedon 07-24 Absolute Neut Normal 2.0-7.7 [facility] Comment on above: Result Comment: Canc elled via OM: MD Ordered Performed By: #### L 100.0100, L500.2500 ####[facility] [address] [place], [address] HCT Normal 40-54 [facility] Comment on above: Result Comment: Canc elled via OM: MD Ordered Performed By: #### L 100.0100, L500.2500 ####[facility] [address] [place], [address] HGB Normal 13.0-16.5 [facility] Comment on above: Result Comment: Canc elled via OM: MD Ordered Performed By: #### L 100.0100, L500.2500 ####[facility] [address] [place], [address] MCH Normal 27.0-32.0 [facility] Comment on above: Result Comment: Canc elled via OM: MD Ordered Performed By: #### L 100.0100, L500.2500 ####[facility] [address] [place], [address] MCHC Normal 32-36 [facility] Comment on above: Result Comment: Canc elled via OM: MD Ordered Performed By: #### L 100.0100, L500.2500 ####[facility] [address] [place], [address] MCV Normal 80-94 [facility] Comment on above: Result Comment: Canc elled via OM: MD Ordered Performed By: #### L 100.0100, L500.2500 ####[facility] [address] [place], [address] NEUT% Normal 47-70 [facility] Comment on above: Result Comment: Canc elled via OM: MD Ordered Performed By: #### L 100.0100, L500.2500 ####[facility] [address] [place], [address] PLT Normal 150-450 [facility] Comment on above: Result Comment: Canc elled via OM: MD Ordered Performed By: #### L 100.0100, L500.2500 ####[facility] [address] [place], [address] RBC Normal 4.6-6.2 [facility] Comment on above: Result Comment: Canc elled via OM: MD Ordered Performed By: #### L 100.0100, L500.2500 ####[facility] [address] [place], [address] RDW CV Normal 11.6-14.6 [facility] Comment on above: Result Comment: Canc elled via OM: MD Ordered Performed By: #### L 100.0100, L500.2500 ####[facility] [address] [place], [address] RDW SD Normal 35.1-43.9 [facility] Comment on above: Result Comment: Canc elled via OM: MD Ordered Performed By: #### L 100.0100, L500.2500 ####[facility] [address] [place], [place], [address] WBC Normal 4.4-11.0 [facility] Comment on above: Result Comment: Ritesh padilla via OM: MD Ordered Performed By: #### L 100.0100, L500.2500 ####[facility] [address] [place], [address] Calculated very low density lipoprotein (VLDL) cholesterol measurementOrdered By: Trixie Pang on 08-09-2025 Calculated very low density lipoprotein (VLDL) cholesterol measurement 16 mg/dL 5-40 [facility] Carbon dioxide, total [Moles /volume] in Central venous bloodOrdered By: Iansouth hackensackfortunato Pang on 08-09-2025 CO2 [Moles/Vol] 24.8 mmol/L 21.0-32.0 [facility] Chloride assayOrdered By: Bandar Pang on 08-09-2025 Chloride [Moles/Vol] 103 mmol/L 98-108 [facility] Eosinophil percentageOrdered By: [place]ols[place] hackensackfortunato Pang on 08-09-2025 Eosinophils/100 WBC (Bld) 0.6 % 0-5 [facility] Erythrocyte distribution wid th ratioOrdered By: Iansouth hackensackfortunato Pang on 08-09-2025 Erythrocyte distribution width (RBC) [Ratio] 16.8 % High 11.6-14.6 [facility] Erythrocyte distribution wid th standard deviationOrdered By: [facility] Northsidefortunato Pang on 08-09-2025 Erythrocyte distribution width (RBC) [Ratio] 49.4 fl High 35.1-43.9 [facility] Glomerular filtration rate ( GFR) estimation/1.73 sq m using serum, plasma, or whole bOrdered By: Iansouth hackensackfortunato Pang on 08-09-2025 GFR/1.73 sq M.predicted among non-blacks MDRD (S/P/Bld) [Vol rate/Area] 74 mL/min/{1.73_m2} >60 [facility] Hematocrit Auto (Bld) [Volum e fraction]Ordered By: Trixie Pang on 08-09-2025 Hematocrit (Bld) [Volume fraction] 26.7 % Low 40-54 [facility] Hemoglobin measurementOrdere d By: Bandarnicolmanifortunato Augustechristophemiranda on 08-09-2025 Hemoglobin (Bld) [Mass/Vol] 8.3 g/dL Low 13.0-16.5 [facility] Immature granulocytes/100 WB C Auto (Bld)Ordered By: Trixie Augustechristophemiranda on 08-09-2025 Immature granulocytes/100 WBC (Bld) 4.300 % High 0.0-0.9 [facility] LDL calc ser/plasOrdered By: Trixie Augustechristophemiranda on 08-09-2025 Cholesterol in LDL [Mass/Vol] 35 mg/dL [facility] MCV (mean corpuscular volume ) determinationOrdered By: Trixie Pang on 08-09-2025 MCV (RBC) [Entitic vol] 82.9 fL 80-94 [facility] Mean corpuscular hemoglobin (MCH) determinationOrdered By: Trixie Augustechristophemiranda on 08-09-2025 MCH (RBC) [Entitic mass] 25.8 pg Low 27.0-32.0 [facility] Monocyte percentageOrdered B y: Bandarnicolmanifortunato Augustechristophemiranda on 08-09-2025 Monocytes/100 WBC (Bld) 17.3 % High 0-10 [facility] Neutrophil percentageOrdered By: Bandarnicolmanifortunato Augustechristophemiranda on 08-09-2025 Neutrophils/100 WBC (Bld) 52.2 % 47-70 [facility] No Panel InformationOrdered By: Trixie Augustechristophemiranda on 08-09-2025 82 U/L High <38 [facility] Platelet countOrdered By: Bandar mikaela Molinachristophemiarnda on 08-09-2025 Platelets (Bld) [#/Vol] 245 10*3/uL 150-450 [facility] Potassium measurement (mass/ volume)Ordered By: Bandarnicolmanifortunato Augustechristophemiranda on 08-09-2025 Potassium (Unsp spec) [Mass/Vol] 4.3 mmol/L 3.3-5.1 [facility] RBC Auto (Bld) [#/Vol]Ordere d By: Ianmanifortunato Augustechristophemiranda on 08-09-2025 RBC (Bld) [#/Vol] 3.22 10*6/uL Low 4.6-6.2 [facility] Serum creatinine measurement (mass/volume)Ordered By: Trixie Pang on 08-09-2025 Creatinine [Mass/Vol] 0.98 mg/dL 0.70-1.20 [facility] Serum globulin measurementOr dered By: Trixie Pang on 08-09-2025 Globulin (S) [Mass/Vol] 3.7 g/dL 2.2-4.2 [facility] Serum glucose measurement (m ass/volume)Ordered By: Trixie Pang on 08-09-2025 Glucose [Mass/Vol] 92 mg/dL 70-99 [facility] Serum or plasma alanine mccoy otransferase (ALT) measurementOrdered By: Trixie Pang on 08-09-2025 ALT [Catalytic activity/Vol] 112 U/L High <47 [facility] Serum or plasma albumin donna urement (mass/volume)Ordered By: Trixie Pang on 08-09-2025 Albumin [Mass/Vol] 2.6 g/dL Low 3.4-4.8 [facility] Serum or plasma albumin/glob ulin mass ratioOrdered By: Trixie Pang on 08-09-2025 Albumin/Globulin [Mass ratio] 0.7 {ratio} Low 0.9-2.4 [facility] Serum or plasma alkaline salvador sphatase measurementOrdered By: Trixie Pang on 08-09-2025 ALP [Catalytic activity/Vol] 147 U/L High 40-129 [facility] Serum or plasma calcium donna urement (mass/volume)Ordered By: Trixie Pang on 08-09-2025 Calcium [Mass/Vol] 8.6 mg/dL 7.6-11.0 [facility] Serum or plasma cholesterol in HDL measurement (mass/volume)Ordered By: Trixie Pang on 08-09-2025 Cholesterol in HDL [Mass/Vol] 23 mg/dL Low >40 [facility] Serum or plasma cholesterol measurement (mass/volume)Ordered By: Trixie Pang on 09-17-2025 Cholesterol [Mass/Vol] 74 mg/dL <201 [facility] Serum or plasma urea nitroge n measurement (mass/volume)Ordered By: Trixie Pang on 08-09-2025 Urea nitrogen [Mass/Vol] 16 mg/dL 4-19 [facility] Sodium levelOrdered By: Ian reynaldo Bird on 08-09-2025 Sodium [Moles/Vol] 138 mmol/L 133-145 [facility] Total proteinOrdered By: Jarredmiranda good Molinachristophemiranda on 08-09-2025 Protein [Mass/Vol] 6.3 g/dL 5.9-8.4 [facility] Vitamin B12 ser/plasOrdered By: Bandarmikaela Augustechristophemiranda on 08-09-2025 Cobalamin (Vitamin B12) [Mass/Vol] 1811 pg/mL High 180-914 [facility] White blood cell (WBC) count Ordered By: Trixie Pang on 08-09-2025 WBC (Bld) [#/Vol] 6.4 10*3/uL 4.4-11.0 [facility] Absolute lymphocyte countOrd ered By: Pedro Banegas on 08-08-2025 Lymphocytes Auto (Unsp spec) [#/Vol] 1.38 10*3/uL 0.83-4.51 [facility] Absolute neutrophil countOrd ered By: Pedro Banegas on 08-08-2025 Neutrophils (Bld) [#/Vol] 5.1 10*3/uL 2.0-7.7 [facility] Anion gap in Serum or Plasma Ordered By: Pedro Banegas on 08-08-2025 Anion gap [Moles/Vol] 9 mmol/L 5-15 [facility] Automated lymphocyte count a s percentage of total leukocytesOrdered By: Pedro Banegas on 08-08-2025 Lymphocytes/100 WBC Auto (Unsp spec) 17.1 % Low 19-41 [facility] BUN/creatinine ratioOrdered By: Pedro Banegas on 08-08-2025 Urea nitrogen/Creatinine [Mass ratio] 18.8 mg/mg 10- [facility] Basic Metabolic Profile (BMP )on 08-08-2025 BUN/CRE 18.8 RATIO Normal - [facility] Comment on above: Performed By: #### L 100.0100, L500.2500 ####[facility] [address] [place], [address] Calcium [Mass/Vol] 8.4 mg/dL Normal 7.6-11.0 [facility] Comment on above: Performed By: #### L 100.0100, L500.2500 ####[facility] [address] [place], [address] Chloride [Moles/Vol] 105 mmol/L Normal 98-108 [facility] Comment on above: Performed By: #### L 100.0100, L500.2500 ####[facility] [address] [place], [address] CO2 [Moles/Vol] 23.3 mmol/L Normal 21.0-32.0 [facility] Comment on above: Performed By: #### L 100.0100, L500.2500 ####[facility] [address] [place], [address] Creatinine [Mass/Vol] 1.04 mg/dL Normal 0.70-1.20 [facility] Comment on above: Performed By: #### L 100.0100, L500.2500 ####[facility] [address] [place], [address] ECRCL 55.85 ml/min Normal 50-250 [facility] Comment on above: Performed By: #### L 100.0100, L500.2500 ####[facility] [address] [place], [address] GAP 9 Normal 5-15 [facility] Comment on above: Performed By: #### L 100.0100, L500.2500 ####[facility] [address] [place], [address] GFR/1.73 sq M.predicted among non-blacks MDRD (S/P/Bld) [Vol rate/Area] 69 mL/min/{1.73_m2} Normal >60 [facility] Comment on above: Result Comment: mL/m in/1.73m2 CKD-EPI Creatinine Equation (2020) Performed By: #### L 100.0100, L500.2500 ####[facility] [address] [place], [address] Glucose [Mass/Vol] 97 mg/dL Normal 70-99 [facility] Comment on above: Performed By: #### L 100.0100, L500.2500 ####[facility] [address] [place], [address] Potassium [Moles/Vol] 4.6 mmol/L Normal 3.3-5.1 [facility] Comment on above: Performed By: #### L 100.0100, L500.2500 ####[facility] [address] [place], [address] Sodium [Moles/Vol] 137 mmol/L Normal 133-145 [facility] Comment on above: Performed By: #### L 100.0100, L500.2500 ####[facility] [address] [place], [address] Urea nitrogen [Mass/Vol] 20 mg/dL High 4-19 [facility] Comment on above: Performed By: #### L 100.0100, L500.2500 ####[facility] [address] [place], [address] Basophil percentageOrdered B y: Pedro Banegas on 08-08-2025 Basophils/100 WBC (Bld) 0.2 % 0-1 [facility] CBC W/Diff, Automatedon 07-24 Absolute Lymph 1.38 X10 3/uL Normal 0.83-4.51 [facility] Comment on above: Performed By: #### L 100.0100, L500.2500 ####[facility] [address] [place], [address] Absolute Neut 5.1 X10 3/uL Normal 2.0-7.7 [facility] Comment on above: Performed By: #### L 100.0100, L500.2500 ####[facility] [address] [place], [address] Basophils/100 WBC (Bld) 0.2 % Normal 0-1 [facility] Comment on above: Performed By: #### L 100.0100, L500.2500 ####[facility] [address] [place], [address] Eosinophils/100 WBC (Bld) 0.7 % Normal 0-5 [facility] Comment on above: Performed By: #### L 100.0100, L500.2500 ####[facility] [address] [place], [address] Erythrocyte distribution width (RBC) [Ratio] 16.7 % High 11.6-14.6 [facility] Comment on above: Performed By: #### L 100.0100, L500.2500 ####[facility] [address] [place], [address] Hematocrit (Bld) [Volume fraction] 27.3 % Low 40-54 [facility] Comment on above: Performed By: #### L 100.0100, L500.2500 ####[facility] [address] [place], [address] Hemoglobin (Bld) [Mass/Vol] 8.7 g/dL Low 13.0-16.5 [facility] Comment on above: Performed By: #### L 100.0100, L500.2500 ####[facility] [address] [place], [address] IG% 2.900 High 0.0-0.9 [facility] Comment on above: Result Comment: IG% - Immature Granulocytes (promyelocytes, myelocytes andmetamyelocytes) > 1% indicates that a LEFT SHIFT is Present. Performed By: #### L 100.0100, L500.2500 ####[facility] [address] [place], [address] Lymphocytes/100 WBC (Bld) 17.1 % Low 19-41 [facility] Comment on above: Performed By: #### L 100.0100, L500.2500 ####[facility] [address] [place], [address] MCH (RBC) [Entitic mass] 26.2 pg Low 27.0-32.0 [facility] Comment on above: Performed By: #### L 100.0100, L500.2500 ####[facility] [address] [place], [address] MCHC (RBC) [Mass/Vol] 31.9 g/dL Low 32-36 [facility] Comment on above: Performed By: #### L 100.0100, L500.2500 ####[facility] [address] [place], [address] MCV (RBC) [Entitic vol] 82.2 fL Normal 80-94 [facility] Comment on above: Performed By: #### L 100.0100, L500.2500 ####[facility] [address] [place], [address] Monocytes/100 WBC (Bld) 15.9 % High 0-10 [facility] Comment on above: Performed By: #### L 100.0100, L500.2500 ####[facility] [address] [place], [address] Neutrophils/100 WBC (Bld) 63.2 % Normal 47-70 [facility] Comment on above: Performed By: #### L 100.0100, L500.2500 ####[facility] [address] [place], [address] Nucleated RBC (Bld) [#/Vol] 0 10*3/uL Normal 0-5 [facility] Comment on above: Performed By: #### L 100.0100, L500.2500 ####[facility] [address] [place], [address] Platelet mean volume (Bld) [Entitic vol] 8.7 fL Normal 6.2-12.0 [facility] Comment on above: Performed By: #### L 100.0100, L500.2500 ####[facility] [address] [place], [address] Platelets (Bld) [#/Vol] 239 10*3/uL Normal 150-450 [facility] Comment on above: Performed By: #### L 100.0100, L500.2500 ####[facility] [address] [place], [address] RBC (Bld) [#/Vol] 3.32 10*6/uL Low 4.6-6.2 [facility] Comment on above: Performed By: #### L 100.0100, L500.2500 ####[facility] [address] [place], [address] RDW SD 49.8 fl High 35.1-43.9 [facility] Comment on above: Performed By: #### L 100.0100, L500.2500 ####[facility] [address] [place], [address] WBC (Bld) [#/Vol] 8.1 10*3/uL Normal 4.4-11.0 [facility] Comment on above: Performed By: #### L 100.0100, L500.2500 ####[facility] [address] [place], [address] Carbon dioxide, total [Moles /volume] in Central venous bloodOrdered By: Pedro Banegas on 08-08-2025 CO2 [Moles/Vol] 23.3 mmol/L 21.0-32.0 [facility] Chloride assayOrdered By: Alan Banegas on 08-08-2025 Chloride [Moles/Vol] 105 mmol/L 98-108 [facility] Eosinophil percentageOrdered By: Pedro Banegas on 08-08-2025 Eosinophils/100 WBC (Bld) 0.7 % 0-5 [facility] Erythrocyte distribution wid th ratioOrdered By: Pedro Banegas on 08-08-2025 Erythrocyte distribution width (RBC) [Ratio] 16.7 % High 11.6-14.6 [facility] Erythrocyte distribution wid th standard deviationOrdered By: Pedro Banegas on 08-08-2025 Erythrocyte distribution width (RBC) [Ratio] 49.8 fl High 35.1-43.9 [facility] Glomerular filtration rate ( GFR) estimation/1.73 sq m using serum, plasma, or whole bOrdered By: Pedro Banegas on 08-08-2025 GFR/1.73 sq M.predicted among non-blacks MDRD (S/P/Bld) [Vol rate/Area] 69 mL/min/{1.73_m2} >60 [facility] Comment on above: mL/min/1.73m2 CKD-EP I Creatinine Equation (2020) Hematocrit Auto (Bld) [Volum e fraction]Ordered By: Pedro Banegas on 08-08-2025 Hematocrit (Bld) [Volume fraction] 27.3 % Low 40-54 [facility] Hemoglobin measurementOrdere d By: Pedro Banegas on 08-08-2025 Hemoglobin (Bld) [Mass/Vol] 8.7 g/dL Low 13.0-16.5 [facility] Immature granulocytes/100 WB C Auto (Bld)Ordered By: Pedro Banegas on 08-08-2025 Immature granulocytes/100 WBC (Bld) 2.900 % High 0.0-0.9 [facility] Comment on above: IG% - Immature Granu locytes (promyelocytes, myelocytes and metamyelocytes) > 1% indicates that a LEFT SHIFT is Present. MCV (mean corpuscular volume ) determinationOrdered By: Pedro Banegas on 08-08-2025 MCV (RBC) [Entitic vol] 82.2 fL 80-94 [facility] Mean corpuscular hemoglobin (MCH) determinationOrdered By: Pedro Banegas on 08-08-2025 MCH (RBC) [Entitic mass] 26.2 pg Low 27.0-32.0 [facility] Mean corpuscular hemoglobin concentration (MCHC) determinationOrdered By: Pedro Banegas on 08-08-2025 MCHC (RBC) [Mass/Vol] 31.9 g/dL Low 32-36 [facility] Comment on above: Delta: 29.7 on 08/06 Mean platelet volume determi nationOrdered By: Pedro Banegas on 08-08-2025 Platelet mean volume (Bld) [Entitic vol] 8.7 fL 6.2-12.0 [facility] Monocyte percentageOrdered B y: Pedro Banegas on 08-08-2025 Monocytes/100 WBC (Bld) 15.9 % High 0-10 [facility] Neutrophil percentageOrdered By: Pedro Banegas on 08-08-2025 Neutrophils/100 WBC (Bld) 63.2 % 47-70 [facility] Nucleated red blood cell per centageOrdered By: Pedro Banegas on 08-08-2025 Nucleated RBC/100 WBC (Bld) [Ratio] 0 % 0-5 [facility] Platelet countOrdered By: Alan Banegas on 08-08-2025 Platelets (Bld) [#/Vol] 239 10*3/uL 150-450 [facility] Potassium measurement (mass/ volume)Ordered By: Pedro Banegas on 08-08-2025 Potassium (Unsp spec) [Mass/Vol] 4.6 mmol/L 3.3-5.1 [facility] RBC Auto (Bld) [#/Vol]Ordere d By: Pedro Banegas on 08-08-2025 RBC (Bld) [#/Vol] 3.32 10*6/uL Low 4.6-6.2 [facility] Serum creatinine measurement (mass/volume)Ordered By: Pedro Banegas on 08-08-2025 Creatinine [Mass/Vol] 1.04 mg/dL 0.70-1.20 [facility] Serum glucose measurement (m ass/volume)Ordered By: Pedro Banegas on 08-08-2025 Glucose [Mass/Vol] 97 mg/dL 70-99 [facility] Serum or plasma calcium donna urement (mass/volume)Ordered By: Pedro Banegas on 08-08-2025 Calcium [Mass/Vol] 8.4 mg/dL 7.6-11.0 [facility] Serum or plasma urea nitroge n measurement (mass/volume)Ordered By: Pedro Banegas on 08-08-2025 Urea nitrogen [Mass/Vol] 20 mg/dL High 4-19 [facility] Sodium levelOrdered By: Melita Banegas on 08-08-2025 Sodium [Moles/Vol] 137 mmol/L 133-145 [facility] White blood cell (WBC) count Ordered By: Pedro Banegas on 08-08-2025 WBC (Bld) [#/Vol] 8.1 10*3/uL 4.4-11.0 [facility] Electrocardiogram reportOrde red By: Marlon Santana on 08-07-2025 EKG study [facility] [address] [place] [address] 12 Lead EKG 08/04/25 1203 MR#: [id number] Acct: [id number] Name: ELIAS SHAH Rep #:[id number] : 1940 85 From: Marlon sanchez MD Attending Dr: Dr. Pedro Banegas MD Status: ADM IN Ordering Dr: Ted Mtz MD Date: 08/04/25 Location: [facility] Sex: M C Admitted: 08/05/25 Test Reason [...] block Abnormal ECG Confirmed by Marlon Santana ([id number]), scientific publications editor DONNIE SALINAS ([id number]) on 08/07/2025 1:08:31 PM Referred By: KD Confirmed By: Marlon Santana 08/07/25 1308 Date _ Marlon Santana MD CC: Dr. Ted Mtz MD; Dr. Pedro Banegas MD; Dr. Husam Khan MD ~ Signed [facility] Other Phone: Absolute lymphocyte countOrd ered By: Jim Adams on 08-06-2025 Lymphocytes Auto (Unsp spec) [#/Vol] 1.37 10*3/uL 0.83-4.51 [facility] Absolute neutrophil countOrd ered By: Jim Adams on 08-06-2025 Neutrophils (Bld) [#/Vol] 13.4 10*3/uL High 2.0-7.7 [facility] Anion gap in Serum or Plasma Ordered By: Jim Adams on 08-06-2025 Anion gap [Moles/Vol] 10 mmol/L 5-15 [facility] Automated lymphocyte count a s percentage of total leukocytesOrdered By: Jim Adams on 08-06-2025 Lymphocytes/100 WBC Auto (Unsp spec) 8.0 % Low 19-41 [facility] BUN/creatinine ratioOrdered By: Jimleah Adams on 08-06-2025 Urea nitrogen/Creatinine [Mass ratio] 24.3 mg/mg High 10-20 [facility] Basic Metabolic Profile (BMP )on 08-06-2025 BUN/CRE 24.3 RATIO High 10-20 [facility] Comment on above: Performed By: #### L 100.0100, L500.2500 ####[facility] [address] [place], [address] Calcium [Mass/Vol] 8.0 mg/dL Normal 7.6-11.0 [facility] Comment on above: Performed By: #### L 100.0100, L500.2500 ####[facility] [address] [place], [address] Chloride [Moles/Vol] 107 mmol/L Normal 98-108 [facility] Comment on above: Performed By: #### L 100.0100, L500.2500 ####[facility] [address] [place], [address] CO2 [Moles/Vol] 18.5 mmol/L Low 21.0-32.0 [facility] Comment on above: Performed By: #### L 100.0100, L500.2500 ####[facility] [address] [place], [address] Creatinine [Mass/Vol] 1.00 mg/dL Normal 0.70-1.20 [facility] Comment on above: Performed By: #### L 100.0100, L500.2500 ####[facility] [address] [place], [address] ECRCL 58.09 ml/min Normal 50-250 [facility] Comment on above: Performed By: #### L 100.0100, L500.2500 ####[facility] [address] [place], [address] GAP 10 Normal 5-15 [facility] Comment on above: Performed By: #### L 100.0100, L500.2500 ####[facility] [address] [place], [address] GFR/1.73 sq M.predicted among non-blacks MDRD (S/P/Bld) [Vol rate/Area] 73 mL/min/{1.73_m2} Normal >60 [facility] Comment on above: Result Comment: mL/m in/1.73m2 CKD-EPI Creatinine Equation (2020) Performed By: #### L 100.0100, L500.2500 ####[facility] [address] [place], [address] Glucose [Mass/Vol] 121 mg/dL High 70-99 [facility] Comment on above: Performed By: #### L 100.0100, L500.2500 ####[facility] [address] [place], [address] Potassium [Moles/Vol] 4.7 mmol/L Normal 3.3-5.1 [facility] Comment on above: Performed By: #### L 100.0100, L500.2500 ####[facility] [address] [place], [address] Sodium [Moles/Vol] 135 mmol/L Normal 133-145 [facility] Comment on above: Performed By: #### L 100.0100, L500.2500 ####[facility] [address] [place], [address] Urea nitrogen [Mass/Vol] 24 mg/dL High 4- [facility] Comment on above: Performed By: #### L 100.0100, L500.2500 ####[facility] [address] [place], [address] Basophil percentageOrdered B y: Jim Adams on 08-06-2025 Basophils/100 WBC (Bld) 0.2 % 0-1 [facility] Blood cultureOrdered By: Amy Banegas on 08-06-2025 Bacteria identified Cx Nom (Bld) No growth in 5 days. [facility] Blood manual differential co mment interpretation (narrative result)Ordered By: Jim Adams on 08-06-2025 Manual differential comment Carlin (Bld) [Interp] SCANNED [facility] Comment on above: MONOCYTOSIS PRESENT CBC W/Diff, Automatedon 07-24 SMEAR COMMENT SCANNED Normal [facility] Comment on above: Result Comment: MONO CYTOSIS PRESENT Performed By: #### L 100.0100, L500.2500 ####[facility] [address] [place], [address] Carbon dioxide, total [Moles /volume] in Central venous bloodOrdered By: Jim Adams on 08-06-2025 CO2 [Moles/Vol] 18.5 mmol/L Low 21.0-32.0 [facility] Chloride assayOrdered By: Alannah Adams on 08-06-2025 Chloride [Moles/Vol] 107 mmol/L 98-108 [facility] Eosinophil percentageOrdered By: Jim Adams on 08-06-2025 Eosinophils/100 WBC (Bld) 0.0 % 0-5 [facility] Erythrocyte distribution wid th ratioOrdered By: Jim Adams on 08-06-2025 Erythrocyte distribution width (RBC) [Ratio] 16.5 % High 11.6-14.6 [facility] Erythrocyte distribution wid th standard deviationOrdered By: Jim Adams on 08-06-2025 Erythrocyte distribution width (RBC) [Ratio] 49.5 fl High 35.1-43.9 [facility] Glomerular filtration rate ( GFR) estimation/1.73 sq m using serum, plasma, or whole bOrdered By: Jim Adams on 08-06-2025 GFR/1.73 sq M.predicted among non-blacks MDRD (S/P/Bld) [Vol rate/Area] 73 mL/min/{1.73_m2} >60 [facility] Comment on above: mL/min/1.73m2 CKD-EP I Creatinine Equation (2020) Hematocrit Auto (Bld) [Volum e fraction]Ordered By: Jim Adams on 08-06-2025 Hematocrit (Bld) [Volume fraction] 26.9 % Low 40-54 [facility] Hemoglobin measurementOrdere d By: Jim Adams on 08-06-2025 Hemoglobin (Bld) [Mass/Vol] 8.0 g/dL Low 13.0-16.5 [facility] Immature granulocytes/100 WB C Auto (Bld)Ordered By: Jim Adams on 08-06-2025 Immature granulocytes/100 WBC (Bld) 2.500 % High 0.0-0.9 [facility] Comment on above: IG% - Immature Granu locytes (promyelocytes, myelocytes and metamyelocytes) > 1% indicates that a LEFT SHIFT is Present. MCV (mean corpuscular volume ) determinationOrdered By: Jim Adams on 08-06-2025 MCV (RBC) [Entitic vol] 83.0 fL 80-94 [facility] Mean corpuscular hemoglobin (MCH) determinationOrdered By: Jim Adams on 08-06-2025 MCH (RBC) [Entitic mass] 24.7 pg Low 27.0-32.0 [facility] Mean corpuscular hemoglobin concentration (MCHC) determinationOrdered By: Jim Adams on 08-06-2025 MCHC (RBC) [Mass/Vol] 29.7 g/dL Low 32-36 [facility] Mean platelet volume determi nationOrdered By: Jim Adams on 08-06-2025 Platelet mean volume (Bld) [Entitic vol] 9.1 fL 6.2-12.0 [facility] Monocyte percentageOrdered B y: Jim Adams on 08-06-2025 Monocytes/100 WBC (Bld) 10.9 % High 0-10 [facility] Neutrophil percentageOrdered By: Jim Adams on 08-06-2025 Neutrophils/100 WBC (Bld) 78.4 % High 47-70 [facility] Nucleated red blood cell per centageOrdered By: Jim Adams on 08-06-2025 Nucleated RBC/100 WBC (Bld) [Ratio] 0 % 0-5 [facility] Platelet countOrdered By: Alannah Adams on 08-06-2025 Platelets (Bld) [#/Vol] 237 10*3/uL 150-450 [facility] Potassium measurement (mass/ volume)Ordered By: Jim Adams on 08-06-2025 Potassium (Unsp spec) [Mass/Vol] 4.7 mmol/L 3.3-5.1 [facility] RBC Auto (Bld) [#/Vol]Ordere d By: Jim Adams on 08-06-2025 RBC (Bld) [#/Vol] 3.24 10*6/uL Low 4.6-6.2 [facility] Serum creatinine measurement (mass/volume)Ordered By: Jim Adams on 08-06-2025 Creatinine [Mass/Vol] 1.00 mg/dL 0.70-1.20 [facility] Serum glucose measurement (m ass/volume)Ordered By: Jim Adams on 08-06-2025 Glucose [Mass/Vol] 121 mg/dL High 70-99 [facility] Serum or plasma calcium donna urement (mass/volume)Ordered By: Jim Adams on 08-06-2025 Calcium [Mass/Vol] 8.0 mg/dL 7.6-11.0 [facility] Serum or plasma urea nitroge n measurement (mass/volume)Ordered By: Jim Adams on 08-06-2025 Urea nitrogen [Mass/Vol] 24 mg/dL High 4-19 [facility] Sodium levelOrdered By: Yazan Adams on 08-06-2025 Sodium [Moles/Vol] 135 mmol/L 133-145 [facility] White blood cell (WBC) count Ordered By: Jim Adams on 08-06-2025 WBC (Bld) [#/Vol] 17.1 10*3/uL High 4.4-11.0 [facility] Basic Metabolic Profile (BMP )on 08-05-2025 BUN/CRE 26.3 RATIO High 10-20 [facility] Comment on above: Performed By: #### L 100.0500, L500.2500 ####[facility] [address] [place], [address] Calcium [Mass/Vol] 7.9 mg/dL Normal 7.6-11.0 [facility] Comment on above: Performed By: #### L 100.0500, L500.2500 ####[facility] [address] [place], [address] Chloride [Moles/Vol] 106 mmol/L Normal 98-108 [facility] Comment on above: Performed By: #### L 100.0500, L500.2500 ####[facility] [address] [place], [address] CO2 [Moles/Vol] 21.1 mmol/L Normal 21.0-32.0 [facility] Comment on above: Performed By: #### L 100.0500, L500.2500 ####[facility] [address] [place], [address] Creatinine [Mass/Vol] 1.31 mg/dL High 0.70-1.20 [facility] Comment on above: Performed By: #### L 100.0500, L500.2500 ####[facility] [address] [place], [address] ECRCL 44.34 ml/min Low 50-250 [facility] Comment on above: Performed By: #### L 100.0500, L500.2500 ####[facility] [address] [place], [address] GAP 11 Normal 5-15 [facility] Comment on above: Performed By: #### L 100.0500, L500.2500 ####[facility] [address] [place], [address] GFR/1.73 sq M.predicted among non-blacks MDRD (S/P/Bld) [Vol rate/Area] 53 mL/min/{1.73_m2} Low >60 [facility] Comment on above: Result Comment: mL/m in/1.73m2 CKD-EPI Creatinine Equation (2020) Performed By: #### L 100.0500, L500.2500 ####[facility] [address] [place], [address] Glucose [Mass/Vol] 114 mg/dL High 70-99 [facility] Comment on above: Performed By: #### L 100.0500, L500.2500 ####[facility] [address] [place], [address] Potassium [Moles/Vol] 4.6 mmol/L Normal 3.3-5.1 [facility] Comment on above: Performed By: #### L 100.0500, L500.2500 ####[facility] [address] [place], [address] Sodium [Moles/Vol] 138 mmol/L Normal 133-145 [facility] Comment on above: Performed By: #### L 100.0500, L500.2500 ####[facility] [address] [place], [address] Urea nitrogen [Mass/Vol] 35 mg/dL High 4-19 [facility] Comment on above: Performed By: #### L 100.0500, L500.2500 ####[facility] [address] [place], [address] CBC-Complete Blood Cnt No Di ffon 08-05-2025 Erythrocyte distribution width (RBC) [Ratio] 16.8 % High 11.6-14.6 [facility] Comment on above: Performed By: #### L 100.0500, L500.2500 ####[facility] [address] [place], [address] Hematocrit (Bld) [Volume fraction] 27.9 % Low 40-54 [facility] Comment on above: Performed By: #### L 100.0500, L500.2500 ####[facility] [address] [place], [address] Hemoglobin (Bld) [Mass/Vol] 8.6 g/dL Low 13.0-16.5 [facility] Comment on above: Performed By: #### L 100.0500, L500.2500 ####[facility] [address] [place], [address] MCH (RBC) [Entitic mass] 25.9 pg Low 27.0-32.0 [facility] Comment on above: Performed By: #### L 100.0500, L500.2500 ####[facility] [address] [place], [address] MCHC (RBC) [Mass/Vol] 30.8 g/dL Low 32-36 [facility] Comment on above: Performed By: #### L 100.0500, L500.2500 ####[facility] [address] [place], [address] MCV (RBC) [Entitic vol] 84.0 fL Normal 80-94 [facility] Comment on above: Performed By: #### L 100.0500, L500.2500 ####[facility] [address] [place], [address] Platelet mean volume (Bld) [Entitic vol] 9.0 fL Normal 6.2-12.0 [facility] Comment on above: Performed By: #### L 100.0500, L500.2500 ####[facility] [address] [place], [address] Platelets (Bld) [#/Vol] 248 10*3/uL Normal 150-450 [facility] Comment on above: Performed By: #### L 100.0500, L500.2500 ####[facility] [address] [place], [address] RBC (Bld) [#/Vol] 3.32 10*6/uL Low 4.6-6.2 [facility] Comment on above: Performed By: #### L 100.0500, L500.2500 ####[facility] [address] [place], [address] RDW SD 49.7 fl High 35.1-43.9 [facility] Comment on above: Performed By: #### L 100.0500, L500.2500 ####[facility] [address] [place], [address] WBC (Bld) [#/Vol] 13.8 10*3/uL High 4.4-11.0 [facility] Comment on above: Performed By: #### L 100.0500, L500.2500 ####[facility] [address] [place], [place], [address] Ferritinon 08-05-2025 Ferritin [Mass/Vol] 521 ng/mL High 37-417 [facility] Comment on above: Performed By: #### L 503.6030, L503.6550 ####[facility] [address] [place], [place], [address] Iron measurement (mass/mass) Ordered By: Jim Adams on 08-05-2025 Iron (Unsp spec) [Mass/Mass] 14 ug/dL Low 65-175 [facility] Iron+Iron Binding Capacityon 08-05-2025 TIBC 149 ug/dL Low 250-450 [facility] Comment on above: Performed By: #### L 503.6030, L503.6550 ####[facility] [address] [place], [place], [address] No Panel InformationOrdered By: Jim Adams on 08-05-2025 Unsaturated Iron Binding Capacity 135 ug/dL Low 228-428 [facility] 135 ug/dL Low 228-428 [facility] Serum or plasma ferritin yosef surement (mass/volume)Ordered By: Jim Adams on 08-05-2025 Ferritin [Mass/Vol] 521 ng/mL High 37-417 [facility] Serum or plasma iron saturat ion measurement (mass fraction)Ordered By: Jim Adams on 08-05-2025 Iron saturation [Mass fraction] 9.4 % 9-55 [facility] Comment on above: Previous reported re sult: 9.6 %Edited by: SCOTT on 08/05/25:1732 AMENDED REPORT 08/05/25 1732 IRON SATURATION previously reported as: 9.6 % 12 Lead EKGon 08-04-2025 12 Lead EKG Normal [facility] Absolute lymphocyte countOrd ered By: Ted Mtz on 08-04-2025 Lymphocytes Auto (Unsp spec) [#/Vol] 0.96 10*3/uL 0.83-4.51 [facility] Absolute neutrophil countOrd ered By: Ted Mtz on 08-04-2025 Neutrophils (Bld) [#/Vol] 11.4 10*3/uL High 2.0-7.7 [facility] Anion gap in Serum or Plasma Ordered By: Ted Mtz on 08-04-2025 Anion gap [Moles/Vol] 11 mmol/L 5-15 [facility] Automated lymphocyte count a s percentage of total leukocytesOrdered By: Ted Mtz on 08-04-2025 Lymphocytes/100 WBC Auto (Unsp spec) 6.6 % Low 19-41 [facility] BUN/creatinine ratioOrdered By: Ted Mtz on 08-04-2025 Urea nitrogen/Creatinine [Mass ratio] 25.4 mg/mg High 10-20 [facility] Basophil percentageOrdered B y: Ted Mtz on 08-04-2025 Basophils/100 WBC (Bld) 0.1 % 0-1 [facility] Bilirubin Test strip Ql (U)O rdered By: Ted Mtz on 08-04-2025 Bilirubin Ql (U) Negative Negative [facility] Bilirubin, totalOrdered By: Ted Mtz on 08-04-2025 Bilirubin [Mass/Vol] 0.30 mg/dL 0.00-1.30 [facility] Blood manual differential co mment interpretation (narrative result)Ordered By: Ted Mtz on 08-04-2025 Manual differential comment Carlin (Bld) [Interp] COMMENT [facility] Comment on above: MONOCYTOSIS. CBC W/Diff, Automatedon 07-24 SMEAR COMMENT COMMENT Normal [facility] Comment on above: Result Comment: MONO CYTOSIS. Performed By: #### L 100.0100, L503.6005, L500.4050 ####[facility] [address] [place], [address] Carbon dioxide, total [Moles /volume] in Central venous bloodOrdered By: Ted Mtz on 08-04-2025 CO2 [Moles/Vol] 24.4 mmol/L 21.0-32.0 [facility] Chest 1 View (Portable)on Chest 1 View (Portable) Normal [facility] Chloride assayOrdered By: Juan Mtz on 08-04-2025 Chloride [Moles/Vol] 101 mmol/L 98-108 [facility] Comprehensive Metabolic Prof ilon 08-04-2025 Albumin [Mass/Vol] 2.7 g/dL Low 3.4-4.8 [facility] Comment on above: Performed By: #### L 100.0100, L503.6005, L500.4050 ####[facility] [address] [place], [address] Albumin/Globulin [Mass ratio] 0.7 {ratio} Low 0.9-2.4 [facility] Comment on above: Performed By: #### L 100.0100, L503.6005, L500.4050 ####[facility] [address] [place], [address] ALK PHOS 112 U/L Normal 40-129 [facility] Comment on above: Performed By: #### L 100.0100, L503.6005, L500.4050 ####[facility] [address] [place], [address] ALT [Catalytic activity/Vol] 83 U/L High <=46 [facility] Comment on above: Performed By: #### L 100.0100, L503.6005, L500.4050 ####[facility] [address] [place], [address] AST [Catalytic activity/Vol] 114 U/L High <=37 [facility] Comment on above: Performed By: #### L 100.0100, L503.6005, L500.4050 ####[facility] [address] [place], [address] Bilirubin [Mass/Vol] 0.30 mg/dL Normal 0.00-1.30 [facility] Comment on above: Performed By: #### L 100.0100, L503.6005, L500.4050 ####[facility] [address] [place], [address] BUN/CRE 25.4 RATIO High 10-20 [facility] Comment on above: Performed By: #### L 100.0100, L503.6005, L500.4050 ####[facility] [address] [place], [address] Calcium [Mass/Vol] 8.4 mg/dL Normal 7.6-11.0 [facility] Comment on above: Performed By: #### L 100.0100, L503.6005, L500.4050 ####[facility] [address] [place], [address] Chloride [Moles/Vol] 101 mmol/L Normal 98-108 [facility] Comment on above: Performed By: #### L 100.0100, L503.6005, L500.4050 ####[facility] [address] [place], [address] CO2 [Moles/Vol] 24.4 mmol/L Normal 21.0-32.0 [facility] Comment on above: Performed By: #### L 100.0100, L503.6005, L500.4050 ####[facility] [address] [place], [address] Creatinine [Mass/Vol] 1.53 mg/dL High 0.70-1.20 [facility] Comment on above: Performed By: #### L 100.0100, L503.6005, L500.4050 ####[facility] [address] [place], [address] ECRCL 37.98 ml/min Low 50-250 [facility] Comment on above: Performed By: #### L 100.0100, L503.6005, L500.4050 ####[facility] [address] [place], [address] GAP 11 Normal 5-15 [facility] Comment on above: Performed By: #### L 100.0100, L503.6005, L500.4050 ####[facility] [address] [place], [address] GFR/1.73 sq M.predicted among non-blacks MDRD (S/P/Bld) [Vol rate/Area] 44 mL/min/{1.73_m2} Low >60 [facility] Comment on above: Result Comment: mL/m in/1.73m2 CKD-EPI Creatinine Equation (2020) Performed By: #### L 100.0100, L503.6005, L500.4050 ####[facility] [address] [place], [address] Globulin (S) [Mass/Vol] 3.8 g/dL Normal 2.2-4.2 [facility] Comment on above: Performed By: #### L 100.0100, L503.6005, L500.4050 ####[facility] [address] [place], [address] Glucose [Mass/Vol] 158 mg/dL High 70-99 [facility] Comment on above: Performed By: #### L 100.0100, L503.6005, L500.4050 ####[facility] [address] [place], [address] Potassium [Moles/Vol] 4.3 mmol/L Normal 3.3-5.1 [facility] Comment on above: Performed By: #### L 100.0100, L503.6005, L500.4050 ####[facility] [address] [place], [address] Sodium [Moles/Vol] 137 mmol/L Normal 133-145 [facility] Comment on above: Performed By: #### L 100.0100, L503.6005, L500.4050 ####[facility] [address] [place], [address] T PROT 6.5 g/dL Normal 5.9-8.4 [facility] Comment on above: Performed By: #### L 100.0100, L503.6005, L500.4050 ####[facility] [address] [place], [address] Urea nitrogen [Mass/Vol] 39 mg/dL High 4-19 [facility] Comment on above: Performed By: #### L 100.0100, L503.6005, L500.4050 ####[facility] [address] [place], [address] Emergency Department Summary on 08-04-2025 Emergency Department Summary Normal [facility] Eosinophil percentageOrdered By: Ted Mtz on 08-04-2025 Eosinophils/100 WBC (Bld) 0.1 % 0-5 [facility] Erythrocyte distribution wid th ratioOrdered By: Tedjennifer Mtz on 08-04-2025 Erythrocyte distribution width (RBC) [Ratio] 16.8 % High 11.6-14.6 [facility] Erythrocyte distribution wid th standard deviationOrdered By: Ted Mtz on 08-04-2025 Erythrocyte distribution width (RBC) [Ratio] 49.2 fl High 35.1-43.9 [facility] Glomerular filtration rate ( GFR) estimation/1.73 sq m using serum, plasma, or whole bOrdered By: Ted Mtz on 08-04-2025 GFR/1.73 sq M.predicted among non-blacks MDRD (S/P/Bld) [Vol rate/Area] 44 mL/min/{1.73_m2} Low >60 [facility] Comment on above: mL/min/1.73m2 CKD-EP I Creatinine Equation (2020) H AND P Exam - Hospitaliston 08-04-2025 H&P Exam - Hospitalist Normal [facility] Hematocrit Auto (Bld) [Volum e fraction]Ordered By: Ted Mtz on 08-04-2025 Hematocrit (Bld) [Volume fraction] 28.7 % Low 40-54 [facility] Hemoglobin measurementOrdere d By: Ted Mtz on 08-04-2025 Hemoglobin (Bld) [Mass/Vol] 8.9 g/dL Low 13.0-16.5 [facility] Hyaline casts LM.LPF (Urine sed) [#/Area]Ordered By: Ted Mtz on 08-04-2025 Hyaline casts (Urine sed) [#/Area] 0 /[LPF] 0-5 [facility] Immature granulocytes/100 WB C Auto (Bld)Ordered By: Ted Mtz on 08-04-2025 Immature granulocytes/100 WBC (Bld) 2.400 % High 0.0-0.9 [facility] Comment on above: IG% - Immature Granu locytes (promyelocytes, myelocytes and metamyelocytes) > 1% indicates that a LEFT SHIFT is Present. Ketones Test strip Ql (U)Ord ered By: Ted Mtz on 08-04-2025 Ketones Ql (U) Negative Negative [facility] Laboratory - Chemistry and C hemistry - challengeOrdered By: Ted Mtz on 08-04-2025 AST [Catalytic activity/Vol] 114 U/L High <38 [facility] Lactic Acidon 08-04-2025 Lactate [Moles/Vol] 1.4 mmol/L Normal 0.0-2.0 [facility] Comment on above: Performed By: #### L 503.6005 ####[facility] [address] [place], [address] Lactate [Moles/Vol] 2.0 mmol/L Normal 0.0-2.0 [facility] Comment on above: Order Comment: Y Result Comment: Crit ical Result(s) Called at 08/04/2025-13:28 by Chauncey??Results read back by same. Performed By: #### L 100.0100, L503.6005, L500.4050 ####[facility] [address] [place], [address] Lactic acid measurementOrder ed By: Ted Mtz on 08-04-2025 Lactate [Moles/Vol] 1.4 mmol/L 0.0-2.0 [facility] Lactate [Moles/Vol] 2.0 mmol/L 0.0-2.0 [facility] Comment on above: Critical Result(s) C alled at 08/04/2025-13:28 by Brittanie Doyle Results read back by same. MCV (mean corpuscular volume ) determinationOrdered By: Ted Mtz on 08-04-2025 MCV (RBC) [Entitic vol] 82.5 fL 80-94 [facility] Mean corpuscular hemoglobin (MCH) determinationOrdered By: Ted Mtz on 08-04-2025 MCH (RBC) [Entitic mass] 25.6 pg Low 27.0-32.0 [facility] Mean corpuscular hemoglobin concentration (MCHC) determinationOrdered By: Ted Mtz on 08-04-2025 MCHC (RBC) [Mass/Vol] 31.0 g/dL Low 32-36 [facility] Mean platelet volume determi nationOrdered By: Ted Mtz on 08-04-2025 Platelet mean volume (Bld) [Entitic vol] 9.0 fL 6.2-12.0 [facility] Microscopic analysis of urin e for red blood cells (RBC)Ordered By: Ted Mtz on 08-04-2025 Microscopic analysis of urine for red blood cells (RBC) 0-5 SEEN /hpf 0-5 [facility] Monocyte percentageOrdered B y: Ted Mtz on 08-04-2025 Monocytes/100 WBC (Bld) 12.6 % High 0-10 [facility] Mucus LM Ql (Urine sed)Order ed By: Ted Mtz on 08-04-2025 Mucus Ql (Urine sed) 0 SEEN /hpf [facility] Neutrophil percentageOrdered By: Ted Mtz on 08-04-2025 Neutrophils/100 WBC (Bld) 78.2 % High 47-70 [facility] Nitrite Test strip Ql (U)Ord ered By: Ted Mtz on 08-04-2025 Nitrite Ql (U) Negative Negative [facility] No Panel InformationOrdered By: Ted Mtz on 08-04-2025 114 U/L High <38 [facility] Nucleated red blood cell per centageOrdered By: Ted Mtz on 08-04-2025 Nucleated RBC/100 WBC (Bld) [Ratio] 0 % 0-5 [facility] Platelet countOrdered By: Juan Mtz on 08-04-2025 Platelets (Bld) [#/Vol] 234 10*3/uL 150-450 [facility] Potassium measurement (mass/ volume)Ordered By: Ted Mtz on 08-04-2025 Potassium (Unsp spec) [Mass/Vol] 4.3 mmol/L 3.3-5.1 [facility] Protein Test strip Ql (U)Ord ered By: Ted Mtz on 08-04-2025 Protein Ql (U) 30 mg/dl High Negative [facility] RBC Auto (Bld) [#/Vol]Ordere d By: Ted Mtz on 08-04-2025 RBC (Bld) [#/Vol] 3.48 10*6/uL Low 4.6-6.2 [facility] Serum creatinine measurement (mass/volume)Ordered By: Ted Mtz on 08-04-2025 Creatinine [Mass/Vol] 1.53 mg/dL High 0.70-1.20 [facility] Serum globulin measurementOr dered By: Ted Mtz on 08-04-2025 Globulin (S) [Mass/Vol] 3.8 g/dL 2.2-4.2 [facility] Serum glucose measurement (m ass/volume)Ordered By: Ted Mzt on 08-04-2025 Glucose [Mass/Vol] 158 mg/dL High 70-99 [facility] Serum or plasma alanine mccoy otransferase (ALT) measurementOrdered By: Ted Mtz on 08-04-2025 ALT [Catalytic activity/Vol] 83 U/L High <47 [facility] Serum or plasma albumin donna urement (mass/volume)Ordered By: Ted Mtz on 08-04-2025 Albumin [Mass/Vol] 2.7 g/dL Low 3.4-4.8 [facility] Serum or plasma albumin/glob ulin mass ratioOrdered By: Ted Mtz on 08-04-2025 Albumin/Globulin [Mass ratio] 0.7 {ratio} Low 0.9-2.4 [facility] Serum or plasma alkaline salvador sphatase measurementOrdered By: Ted Mtz on 08-04-2025 ALP [Catalytic activity/Vol] 112 U/L 40-129 [facility] Serum or plasma calcium donna urement (mass/volume)Ordered By: Ted Mtz on 08-04-2025 Calcium [Mass/Vol] 8.4 mg/dL 7.6-11.0 [facility] Serum or plasma urea nitroge n measurement (mass/volume)Ordered By: Ted Mtz on 08-04-2025 Urea nitrogen [Mass/Vol] 39 mg/dL High 4-19 [facility] Sodium levelOrdered By: Gopal Mtz on 08-04-2025 Sodium [Moles/Vol] 137 mmol/L 133-145 [facility] Squamous epithelial cells de tection in urine sediment by light microscopyOrdered By: Ted Mtz on 08-04-2025 Epithelial cells.squamous LM Ql (Urine sed) 0-5 SEEN /hpf 0-5 [facility] Total proteinOrdered By: Jamel Mtz on 08-04-2025 Protein [Mass/Vol] 6.5 g/dL 5.9-8.4 [facility] Urinalysis, Completeon 08-04 EPI,SQUAMOUS 0-5 SEEN Normal 0-5 [facility] Comment on above: Order Comment: MALATHI DIAMOND TO SPECIFY Performed By: #### L 400.0001 ####[facility] [address] [place], [place], [id number] RBC 0-5 SEEN Normal 0-5 [facility] Comment on above: Order Comment: MALATHI THACKEROR TO SPECIFY Performed By: #### L 400.0001 ####[facility] [address] [place], [place], [address] WBC 0-5 SEEN Normal 0-5 [facility] Comment on above: Order Comment: MALATHI CTOR TO SPECIFY Performed By: #### L 400.0001 ####[facility] [address] [place], [address] CAST,FINE GRAN 0-5 SEEN Normal 0-5 [facility] Comment on above: Order Comment: MALATHI CTOR TO SPECIFY Performed By: #### L 400.0001 ####[facility] [address] [place], [address] CAST,HYALINE 0-5 SEEN Normal 0-5 [facility] Comment on above: Order Comment: MALATHI CTOR TO SPECIFY Performed By: #### L 400.0001 ####[facility] [address] [place], [address] BACTERIA 0 SEEN Normal None Seen [facility] Comment on above: Order Comment: MALATHI CTOR TO SPECIFY Performed By: #### L 400.0001 ####[facility] [address] [place], [address] Mucus Ql (Urine sed) 0 SEEN Normal [facility] Comment on above: Order Comment: MALATHI CTOR TO SPECIFY Performed By: #### L 400.0001 ####[facility] [address] [place], [address] Urine clarityOrdered By: Jamel Mtz on 08-04-2025 Clarity (U) Sl. Cloudy Clear [facility] Urine color determinationOrd ered By: Ted Mtz on 08-04-2025 Color (U) Yellow Yellow [facility] Urine glucose detectionOrder ed By: Ted Mtz on 08-04-2025 Glucose Ql (U) Normal mg/dl Normal [facility] Urine leukocyte esterase det ection by dipstickOrdered By: Ted Mtz on 08-04-2025 Leukocyte esterase Test strip Ql (U) Negative Negative [facility] Urine pHOrdered By: Ted Mtz on 08-04-2025 pH (U) 5.0 [pH] 5.0 - 8.0 [facility] Urine sediment bacteria coun t by microscopy (number/high power field)Ordered By: Ted Mtz on 08-04-2025 Bacteria LM.HPF (Urine sed) [#/Area] 0 /[HPF] None Seen [facility] Urine sediment fine granular cast count by microscopy (number/low power field)Ordered By: Ted Mtz on 08-04-2025 Fine Granular Casts LM.LPF (Urine sed) [#/Area] 0-5 SEEN /lpf 0-5 [facility] Urine specific gravity measu rementOrdered By: Ted Mtz on 08-04-2025 Specific gravity (U) [Rel density] 1.020 1.002-1.030 [facility] Urine urobilinogen measureme ntOrdered By: Ted Mtz on 08-04-2025 Urobilinogen Ql (U) Normal mg/dl Normal [facility] White blood cell (WBC) count Ordered By: Ted Mtz on 08-04-2025 WBC (Bld) [#/Vol] 14.6 10*3/uL High 4.4-11.0 [facility] White blood cell countOrdere d By: Ted Mtz on 08-04-2025 White blood cell count 0-5 SEEN /hpf 0-5 [facility] Operative Reporton Operative Report Normal [facility] MR/BMS.BVSon 08-01-2025 MR/BMS.BVS Normal [facility] Venous duplex ultrasound rep ortOrdered By: Channing Mckeon on 07-31-2025 US Vein [facility] [address] [place] [address] Venous Duplex US - Lalo Extrem 07/27/25 1314 MR#: [id number] Acct: [id number] Name: ELIAS SHAH Rep #:[id number] : 1940 85 From: Channing Soliman [...] Dictated: 07/27/25 1314 Date Transcribed: 07/31/25 1230 Data Conversion Analyst: Signed [facility] Work Phone: Anion gap in Serum or Plasma Ordered By: Ilana Medrano on 07-27-2025 Anion gap [Moles/Vol] 12 mmol/L 04-06 [facility] BUN/creatinine ratioOrdered By: Ilana Medrano on 07-27-2025 Urea nitrogen/Creatinine [Mass ratio] 16.9 mg/mg 09-11 [facility] Basic Metabolic Profile (BMP )on 07-27-2025 BUN/CRE 16.9 RATIO Normal 09-11 [facility] Comment on above: Performed By: #### L 100.0500, L500.2500 ####[facility] [address] [place], [address] Calcium [Mass/Vol] 9.1 mg/dL Normal 7.6-11.0 [facility] Comment on above: Performed By: #### L 100.0500, L500.2500 ####[facility] [address] [place], [address] Chloride [Moles/Vol] 103 mmol/L Normal 98-108 [facility] Comment on above: Performed By: #### L 100.0500, L500.2500 ####[facility] [address] [place], [address] CO2 [Moles/Vol] 25.9 mmol/L Normal 21.0-32.0 [facility] Comment on above: Performed By: #### L 100.0500, L500.2500 ####[facility] [address] [place], [address] Creatinine [Mass/Vol] 1.15 mg/dL Normal 0.70-1.20 [facility] Comment on above: Performed By: #### L 100.0500, L500.2500 ####[facility] [address] [place], [address] ECRCL 45.25 ml/min Low 50-250 [facility] Comment on above: Performed By: #### L 100.0500, L500.2500 ####[facility] [address] [place], [address] GAP 12 Normal 5-15 [facility] Comment on above: Performed By: #### L 100.0500, L500.2500 ####[facility] [address] [place], [address] GFR/1.73 sq M.predicted among non-blacks MDRD (S/P/Bld) [Vol rate/Area] 62 mL/min/{1.73_m2} Normal >60 [facility] Comment on above: Result Comment: mL/m in/1.73m2 CKD-EPI Creatinine Equation (2020) Performed By: #### L 100.0500, L500.2500 ####[facility] [address] [place], [address] Glucose [Mass/Vol] 156 mg/dL High 70-99 [facility] Comment on above: Performed By: #### L 100.0500, L500.2500 ####[facility] [address] [place], [address] Potassium [Moles/Vol] 4.1 mmol/L Normal 3.3-5.1 [facility] Comment on above: Performed By: #### L 100.0500, L500.2500 ####[facility] [address] [place], [address] Sodium [Moles/Vol] 140 mmol/L Normal 133-145 [facility] Comment on above: Performed By: #### L 100.0500, L500.2500 ####[facility] [address] [place], [address] Urea nitrogen [Mass/Vol] 19 mg/dL Normal 4-19 [facility] Comment on above: Performed By: #### L 100.0500, L500.2500 ####[facility] [address] [place], [address] CBC-Complete Blood Cnt No Di ffon 07-27-2025 Erythrocyte distribution width (RBC) [Ratio] 15.4 % High 11.6-14.6 [facility] Comment on above: Performed By: #### L 100.0500, L500.2500 ####[facility] [address] [place], [address] Hematocrit (Bld) [Volume fraction] 30.7 % Low 40-54 [facility] Comment on above: Performed By: #### L 100.0500, L500.2500 ####[facility] [address] [place], [address] Hemoglobin (Bld) [Mass/Vol] 9.3 g/dL Low 13.0-16.5 [facility] Comment on above: Performed By: #### L 100.0500, L500.2500 ####[facility] [address] [place], [address] MCH (RBC) [Entitic mass] 24.8 pg Low 27.0-32.0 [facility] Comment on above: Performed By: #### L 100.0500, L500.2500 ####[facility] [address] [place], [address] MCHC (RBC) [Mass/Vol] 30.3 g/dL Low 32-36 [facility] Comment on above: Performed By: #### L 100.0500, L500.2500 ####[facility] [address] [place], [address] MCV (RBC) [Entitic vol] 81.9 fL Normal 80-94 [facility] Comment on above: Performed By: #### L 100.0500, L500.2500 ####[facility] [address] [place], [address] Platelet mean volume (Bld) [Entitic vol] 8.6 fL Normal 6.2-12.0 [facility] Comment on above: Performed By: #### L 100.0500, L500.2500 ####[facility] [address] [place], [address] Platelets (Bld) [#/Vol] 282 10*3/uL Normal 150-450 [facility] Comment on above: Performed By: #### L 100.0500, L500.2500 ####[facility] [address] [place], [address] RBC (Bld) [#/Vol] 3.75 10*6/uL Low 4.6-6.2 [facility] Comment on above: Performed By: #### L 100.0500, L500.2500 ####[facility] [address] [place], [address] RDW SD 45.6 fl High 35.1-43.9 [facility] Comment on above: Performed By: #### L 100.0500, L500.2500 ####[facility] [address] [place], [address] WBC (Bld) [#/Vol] 9.5 10*3/uL Normal 4.4-11.0 [facility] Comment on above: Performed By: #### L 100.0500, L500.2500 ####[facility] [address] [place], [address] CTA Abd w/Runoff W/WO Contra ston 07-27-2025 CTA Abd w/Runoff W/WO Contrast Normal [facility] Carbon dioxide, total [Moles /volume] in Central venous bloodOrdered By: Ilana Medrano on 07-27-2025 CO2 [Moles/Vol] 25.9 mmol/L 21.0-32.0 [facility] Chloride assayOrdered By: Anatoly Medrano on 07-27-2025 Chloride [Moles/Vol] 103 mmol/L 98-108 [facility] Emergency Department Summary on 07-27-2025 Emergency Department Summary Normal [facility] Erythrocyte distribution wid th ratioOrdered By: Ilana Medrano on 07-27-2025 Erythrocyte distribution width (RBC) [Ratio] 15.4 % High 11.6-14.6 [facility] Erythrocyte distribution wid th standard deviationOrdered By: Ilana Medrano on 07-27-2025 Erythrocyte distribution width (RBC) [Ratio] 45.6 fl High 35.1-43.9 [facility] Glomerular filtration rate ( GFR) estimation/1.73 sq m using serum, plasma, or whole bOrdered By: Ilana Medrano on 07-27-2025 GFR/1.73 sq M.predicted among non-blacks MDRD (S/P/Bld) [Vol rate/Area] 62 mL/min/{1.73_m2} >60 [facility] Comment on above: mL/min/1.73m2 CKD-EP I Creatinine Equation (2020) Hematocrit Auto (Bld) [Volum e fraction]Ordered By: Ilana Medrano on 07-27-2025 Hematocrit (Bld) [Volume fraction] 30.7 % Low 40-54 [facility] Hemoglobin measurementOrdere d By: Ilana Medrano on 07-27-2025 Hemoglobin (Bld) [Mass/Vol] 9.3 g/dL Low 13.0-16.5 [facility] MCV (mean corpuscular volume ) determinationOrdered By: Ilana Medrano on 07-27-2025 MCV (RBC) [Entitic vol] 81.9 fL 80-94 [facility] Mean corpuscular hemoglobin (MCH) determinationOrdered By: Ilana Medrano on 07-27-2025 MCH (RBC) [Entitic mass] 24.8 pg Low 27.0-32.0 [facility] Mean corpuscular hemoglobin concentration (MCHC) determinationOrdered By: Ilana Medrano on 07-27-2025 MCHC (RBC) [Mass/Vol] 30.3 g/dL Low 32-36 [facility] Mean platelet volume determi nationOrdered By: Ilana Medrano on 07-27-2025 Platelet mean volume (Bld) [Entitic vol] 8.6 fL 6.2-12.0 [facility] Platelet countOrdered By: Anatoly Medrano on 07-27-2025 Platelets (Bld) [#/Vol] 282 10*3/uL 150-450 [facility] Potassium measurement (mass/ volume)Ordered By: Ilana Medrano on 07-27-2025 Potassium (Unsp spec) [Mass/Vol] 4.1 mmol/L 3.3-5.1 [facility] RBC Auto (Bld) [#/Vol]Ordere d By: Ilana Medrano on 07-27-2025 RBC (Bld) [#/Vol] 3.75 10*6/uL Low 4.6-6.2 [facility] Serum creatinine measurement (mass/volume)Ordered By: Ilana Medrano on 07-27-2025 Creatinine [Mass/Vol] 1.15 mg/dL 0.70-1.20 [facility] Serum glucose measurement (m ass/volume)Ordered By: Ilana Medrano on 07-27-2025 Glucose [Mass/Vol] 156 mg/dL High 70-99 [facility] Serum or plasma calcium donna urement (mass/volume)Ordered By: Ilana Medrano on 07-27-2025 Calcium [Mass/Vol] 9.1 mg/dL 7.6-11.0 [facility] Serum or plasma urea nitroge n measurement (mass/volume)Ordered By: Ilana Medrano on 07-27-2025 Urea nitrogen [Mass/Vol] 19 mg/dL 4-19 [facility] Sodium levelOrdered By: Demi Medrano on 07-27-2025 Sodium [Moles/Vol] 140 mmol/L 133-145 [facility] Venous Duplex US - Lalo Extre mon 07-27-2025 Venous Duplex US - Lalo Extrem Normal [facility] White blood cell (WBC) count Ordered By: Ilana Medrano on 07-27-2025 WBC (Bld) [#/Vol] 9.5 10*3/uL 4.4-11.0 [facility] Influenza virus A and B and SARS-CoV-2 (COVID-19) and Respiratory syncytial virus RNAOrdered By: Husam Khan on 07-26-2025 SARS-CoV-2 (COVID-19) RNA TRICIA+probe Ql (Unsp spec) [facility] M100.678on 07-26-2025 M100.678 Pending SARS-CoV-2 (COVID 19) Negative INFLUENZA A Negative INFLUENZA B Negative RSV PCR Negative Normal [facility] Comment on above: Performed By: #### M 100.678 ####[facility] [address] [place], [address] Cardiology Visit Reporton Cardiology Visit Report Normal [facility] Oncology Visit Reporton 04-25 Oncology Visit Report Normal [facility] DAMARIS + Protein Elect, Serumon 05-09-2025 Albumin [Mass/Vol] 3.1 g/dL Normal 2.9-4.4 [facility] Comment on above: Order Comment: NUNK Performed By: #### L 100.9950, L503.6550, L100.0100, L3100.3425 ####[facility] [address] [place], [address] Albumin/Globulin [Mass ratio] 0.9 {ratio} Normal 0.7-1.7 [facility] Comment on above: Order Comment: NUNK Performed By: #### L 100.9950, L503.6550, L100.0100, L3100.3425 ####[facility] [address] [place], [address] DESET-6-HHJH 0.3 g/dL Normal 0.0-0.4 [facility] Comment on above: Order Comment: NUNK Performed By: #### L 100.9950, L503.6550, L100.0100, L3100.3425 ####[facility] [address] [place], [place], [address] HCXTD-2-LLJV 1.0 g/dL Normal 0.4-1.0 [facility] Comment on above: Order Comment: NUNK Performed By: #### L 100.9950, L503.6550, L100.0100, L3100.3425 ####[facility] [address] [place], [address] BETA GLOBULIN 1.0 g/dL Normal 0.7-1.3 [facility] Comment on above: Order Comment: NUNK Performed By: #### L 100.9950, L503.6550, L100.0100, L3100.3425 ####[facility] [address] [place], [address] GAMMA GLOBULIN 1.5 g/dL Normal 0.4-1.8 [facility] Comment on above: Order Comment: NUNK Performed By: #### L 100.9950, L503.6550, L100.0100, L3100.3425 ####[facility] [address] [place], [address] Globulin (S) [Mass/Vol] 3.8 g/dL Normal 2.2-3.9 [facility] Comment on above: Order Comment: NUNK Performed By: #### L 100.9950, L503.6550, L100.0100, L3100.3425 ####[facility] [address] [place], [address] DAMARIS RESULT,S Comment Abnormal . [facility] Comment on above: Order Comment: NUNK Result Comment: Immu nofixation shows IgM monoclonal protein with kappalight chain specificity.Immunofixation shows IgM monoclonal protein with lambdalight chain specificity.Immunofixation shows IgG monoclonal protein with lambdalight chain specificity. Performed By: #### L 100.9950, L503.6550, L100.0100, L3100.3425 ####[facility] [address] [place], [address] IMMUNOGLOB A QN 472 mg/dL High 61-437 [facility] Comment on above: Order Comment: NUNK Performed By: #### L 100.9950, L503.6550, L100.0100, L3100.3425 ####[facility] [address] [place], [address] IMMUNOGLOB G QN 1475 mg/dL Normal 603-1613 [facility] Comment on above: Order Comment: NUNK Performed By: #### L 100.9950, L503.6550, L100.0100, L3100.3425 ####[facility] [address] [place], [address] IMMUNOGLOB M QN 179 mg/dL High 15-143 [facility] Comment on above: Order Comment: NUNK Performed By: #### L 100.9950, L503.6550, L100.0100, L3100.3425 ####[facility] [address] [place], [address] M-William Comment: Normal Not Observed [facility] Comment on above: Order Comment: NUNK Result Comment: Poinsett clonal IgM lambda = 0.2 g/dlMonoclonal IgG lambda = 0.2 g/dlMonoclonal IgM kappa = 0.1 g/dl Performed By: #### L 100.9950, L503.6550, L100.0100, L3100.3425 ####[facility] [address] [place], [address] NOTE: Comment Normal . [facility] Comment on above: Order Comment: NUNK Result Comment: Prot ein electrophoresis scan will follow via computer,mail, or firer locomotive delivery.Performed at: [address] [id number] Director: Alcides Alicea PhD, Phone: [phone] Performed By: #### L 100.9950, L503.6550, L100.0100, L3100.3425 ####[facility] [address] [place], [address] Protein [Mass/Vol] 6.9 g/dL Normal 6.0-8.5 [facility] Comment on above: Order Comment: NUNK Performed By: #### L 100.9950, L503.6550, L100.0100, L3100.3420 ####[facility] [address] [place], [address] Absolute lymphocyte countOrd ered By: Geoffrey Garza on 05-04-2025 Lymphocytes Auto (Unsp spec) [#/Vol] 2.54 10*3/uL 0.83-4.51 [facility] Absolute neutrophil countOrd ered By: [facility] on 05-04-2025 Neutrophils (Bld) [#/Vol] 1.3 10*3/uL Low 2.0-7.7 [facility] Albumin Elph [Mass/Vol]Order ed By: Geoffrey Garza on 05-04-2025 Albumin [Mass/Vol] 3.1 g/dL 2.9-4.4 [facility] Anion gap in Serum or Plasma Ordered By: Geoffrey Garza on 05-04-2025 Anion gap [Moles/Vol] 9 mmol/L 5-15 [facility] Automated lymphocyte count a s percentage of total leukocytesOrdered By: Geoffrey Garza on 05-04-2025 Lymphocytes/100 WBC Auto (Unsp spec) 50.5 % High 19-41 [facility] BUN/creatinine ratioOrdered By: [facility] on 05-04-2025 Urea nitrogen/Creatinine [Mass ratio] 11.4 mg/mg 10-20 [facility] Basophil percentageOrdered B y: Geoffrey Garza on 05-04-2025 Basophils/100 WBC (Bld) 0.4 % 0-1 [facility] Bilirubin, totalOrdered By: Geoffrey Garza on 05-04-2025 Bilirubin [Mass/Vol] 0.33 mg/dL 0.00-1.30 [facility] CBC W/Diff, Automatedon 04-23 Absolute Lymph 2.54 X10 3/uL Normal 0.83-4.51 [facility] Comment on above: Performed By: #### L 100.9950, L503.6550, L100.0100, L3100.3425 ####[facility] [address] [place], [address] Absolute Neut 1.3 X10 3/uL Low 2.0-7.7 [facility] Comment on above: Performed By: #### L 100.9950, L503.6550, L100.0100, L3100.3425 ####[facility] [address] [place], [address] Basophils/100 WBC (Bld) 0.4 % Normal 0-1 [facility] Comment on above: Performed By: #### L 100.9950, L503.6550, L100.0100, L3100.3425 ####[facility] [address] [place], [address] Eosinophils/100 WBC (Bld) 1.4 % Normal 0-5 [facility] Comment on above: Performed By: #### L 100.9950, L503.6550, L100.0100, L3100.3425 ####[facility] [address] [place], [address] Erythrocyte distribution width (RBC) [Ratio] 15.1 % High 11.6-14.6 [facility] Comment on above: Performed By: #### L 100.9950, L503.6550, L100.0100, L3100.3425 ####[facility] [address] [place], [address] Hematocrit (Bld) [Volume fraction] 36.5 % Low 40-54 [facility] Comment on above: Performed By: #### L 100.9950, L503.6550, L100.0100, L3100.3425 ####[facility] [address] [place], [address] Hemoglobin (Bld) [Mass/Vol] 11.4 g/dL Low 13.0-16.5 [facility] Comment on above: Performed By: #### L 100.9950, L503.6550, L100.0100, L3100.3425 ####[facility] [address] [place], [address] IG% 0.800 Normal 0.0-0.9 [facility] Comment on above: Result Comment: IG% - Immature Granulocytes (promyelocytes, myelocytes andmetamyelocytes) > 1% indicates that a LEFT SHIFT is Present. Performed By: #### L 100.9950, L503.6550, L100.0100, L3100.3425 ####[facility] [address] [place], [address] Lymphocytes/100 WBC (Bld) 50.5 % High 19-41 [facility] Comment on above: Performed By: #### L 100.9950, L503.6550, L100.0100, L3100.3425 ####[facility] [address] [place], [address] MCH (RBC) [Entitic mass] 27.7 pg Normal 27.0-32.0 [facility] Comment on above: Performed By: #### L 100.9950, L503.6550, L100.0100, L3100.3425 ####[facility] [address] [place], [address] MCHC (RBC) [Mass/Vol] 31.2 g/dL Low 32-36 [facility] Comment on above: Performed By: #### L 100.9950, L503.6550, L100.0100, L3100.3425 ####[facility] [address] [place], [address] MCV (RBC) [Entitic vol] 88.8 fL Normal 80-94 [facility] Comment on above: Performed By: #### L 100.9950, L503.6550, L100.0100, L3100.3425 ####[facility] [address] [place], [address] Monocytes/100 WBC (Bld) 22.1 % High 0-10 [facility] Comment on above: Performed By: #### L 100.9950, L503.6550, L100.0100, L3100.3425 ####[facility] [address] [place], [address] Neutrophils/100 WBC (Bld) 24.8 % Low 47-70 [facility] Comment on above: Performed By: #### L 100.9950, L503.6550, L100.0100, L3100.3425 ####[facility] [address] [place], [address] Nucleated RBC (Bld) [#/Vol] 0 10*3/uL Normal 0-5 [facility] Comment on above: Performed By: #### L 100.9950, L503.6550, L100.0100, L3100.3425 ####[facility] [address] [place], [address] Platelet mean volume (Bld) [Entitic vol] 8.9 fL Normal 6.2-12.0 [facility] Comment on above: Performed By: #### L 100.9950, L503.6550, L100.0100, L3100.3425 ####[facility] [address] [place], [address] Platelets (Bld) [#/Vol] 210 10*3/uL Normal 150-450 [facility] Comment on above: Performed By: #### L 100.9950, L503.6550, L100.0100, L3100.3425 ####[facility] [address] [place], [address] RBC (Bld) [#/Vol] 4.11 10*6/uL Low 4.6-6.2 [facility] Comment on above: Performed By: #### L 100.9950, L503.6550, L100.0100, L3100.3425 ####[facility] [address] [place], [address] RDW SD 49.2 fl High 35.1-43.9 [facility] Comment on above: Performed By: #### L 100.9950, L503.6550, L100.0100, L3100.3425 ####[facility] [address] [place], [address] WBC (Bld) [#/Vol] 5.0 10*3/uL Normal 4.4-11.0 [facility] Comment on above: Performed By: #### L 100.9950, L503.6550, L100.0100, L3100.3425 ####[facility] [address] [place], [address] Carbon dioxide, total [Moles /volume] in Central venous bloodOrdered By: Geoffrey Garza on 05-04-2025 CO2 [Moles/Vol] 26.7 mmol/L 21.0-32.0 [facility] Chloride assayOrdered By: Cheri Garza on 05-04-2025 Chloride [Moles/Vol] 102 mmol/L 98-108 [facility] Comprehensive Metabolic Prof ilon 05-04-2025 Albumin [Mass/Vol] 3.6 g/dL Normal 3.4-4.8 [facility] Comment on above: Order Comment: UNK Performed By: #### L 500.4050, L503.0106, L503.6030 ####[facility] [address] [place], [address] Albumin/Globulin [Mass ratio] 1.0 {ratio} Normal 0.9-2.4 [facility] Comment on above: Order Comment: UNK Performed By: #### L 500.4050, L503.0106, L503.6030 ####[facility] [address] [place], [address] ALK PHOS 96 U/L Normal 40-129 [facility] Comment on above: Order Comment: UNK Performed By: #### L 500.4050, L503.0106, L503.6030 ####[facility] [address] [place], [address] ALT [Catalytic activity/Vol] 6 U/L Normal <=46 [facility] Comment on above: Order Comment: UNK Performed By: #### L 500.4050, L503.0106, L503.6030 ####[facility] [address] [place], [address] AST [Catalytic activity/Vol] 20 U/L Normal <=37 [facility] Comment on above: Order Comment: UNK Performed By: #### L 500.4050, L503.0106, L503.6030 ####[facility] [address] [place], [address] Bilirubin [Mass/Vol] 0.33 mg/dL Normal 0.00-1.30 [facility] Comment on above: Order Comment: UNK Performed By: #### L 500.4050, L503.0106, L503.6030 ####[facility] [address] [place], [address] BUN/CRE 11.4 RATIO Normal 10-20 [facility] Comment on above: Order Comment: UNK Performed By: #### L 500.4050, L503.0106, L503.6030 ####[facility] [address] [place], [address] Calcium [Mass/Vol] 8.8 mg/dL Normal 7.6-11.0 [facility] Comment on above: Order Comment: UNK Performed By: #### L 500.4050, L503.0106, L503.6030 ####[facility] [address] [place], [address] Chloride [Moles/Vol] 102 mmol/L Normal 98-108 [facility] Comment on above: Order Comment: UNK Performed By: #### L 500.4050, L503.0106, L503.6030 ####[facility] [address] [place], [address] CO2 [Moles/Vol] 26.7 mmol/L Normal 21.0-32.0 [facility] Comment on above: Order Comment: UNK Performed By: #### L 500.4050, L503.0106, L503.6030 ####[facility] [address] [place], [address] Creatinine [Mass/Vol] 1.14 mg/dL Normal 0.70-1.20 [facility] Comment on above: Order Comment: UNK Performed By: #### L 500.4050, L503.0106, L503.6030 ####[facility] [address] [place], [address] ECRCL 49.94 ml/min Low 50-250 [facility] Comment on above: Order Comment: UNK Performed By: #### L 500.4050, L503.0106, L503.6030 ####[facility] [address] [place], [address] GAP 9 Normal 5-15 [facility] Comment on above: Order Comment: UNK Performed By: #### L 500.4050, L503.0106, L503.6030 ####[facility] [address] [place], [address] GFR/1.73 sq M.predicted among non-blacks MDRD (S/P/Bld) [Vol rate/Area] 62 mL/min/{1.73_m2} Normal >60 [facility] Comment on above: Order Comment: UNK Result Comment: mL/m in/1.73m2 CKD-EPI Creatinine Equation (2020) Performed By: #### L 500.4050, L503.0106, L503.6030 ####[facility] [address] [place], [address] Globulin (S) [Mass/Vol] 3.6 g/dL Normal 2.2-4.2 [facility] Comment on above: Order Comment: UNK Performed By: #### L 500.4050, L503.0106, L503.6030 ####[facility] [address] [place], [address] Glucose [Mass/Vol] 90 mg/dL Normal 70-99 [facility] Comment on above: Order Comment: UNK Performed By: #### L 500.4050, L503.0106, L503.6030 ####[facility] [address] [place], [address] Potassium [Moles/Vol] 4.6 mmol/L Normal 3.3-5.1 [facility] Comment on above: Order Comment: UNK Performed By: #### L 500.4050, L503.0106, L503.6030 ####[facility] [address] [place], [address] Sodium [Moles/Vol] 138 mmol/L Normal 133-145 [facility] Comment on above: Order Comment: UNK Performed By: #### L 500.4050, L503.0106, L503.6030 ####[facility] [address] [place], [address] T PROT 7.2 g/dL Normal 5.9-8.4 [facility] Comment on above: Order Comment: UNK Performed By: #### L 500.4050, L503.0106, L503.6030 ####[facility] [address] [place], [address] Urea nitrogen [Mass/Vol] 13 mg/dL Normal 4-19 [facility] Comment on above: Order Comment: UNK Performed By: #### L 500.4050, L503.0106, L503.6030 ####[facility] [address] [place], [address] Eosinophil percentageOrdered By: Geoffrey Garza on 05-04-2025 Eosinophils/100 WBC (Bld) 1.4 % 0-5 [facility] Erythrocyte distribution wid th ratioOrdered By: Geoffrey Garza on 05-04-2025 Erythrocyte distribution width (RBC) [Ratio] 15.1 % High 11.6-14.6 [facility] Erythrocyte distribution wid th standard deviationOrdered By: [facility] on 05-04-2025 Erythrocyte distribution width (RBC) [Ratio] 49.2 fl High 35.1-43.9 [facility] Ferritinon 05-04-2025 Ferritin [Mass/Vol] 78 ng/mL Normal 37-417 [facility] Comment on above: Performed By: #### L 100.9950, L503.6550, L100.0100, L3100.3425 ####[facility] [address] [place], [address] Glomerular filtration rate ( GFR) estimation/1.73 sq m using serum, plasma, or whole bOrdered By: Geoffrey Garza on 05-04-2025 GFR/1.73 sq M.predicted among non-blacks MDRD (S/P/Bld) [Vol rate/Area] 62 mL/min/{1.73_m2} >60 [facility] Comment on above: mL/min/1.73m2 CKD-EP I Creatinine Equation (2020) Hematocrit Auto (Bld) [Volum e fraction]Ordered By: Geoffrey Garza on 05-04-2025 Hematocrit (Bld) [Volume fraction] 36.5 % Low 40-54 [facility] Hemoglobin measurementOrdere d By: Geoffrey Garza on 05-04-2025 Hemoglobin (Bld) [Mass/Vol] 11.4 g/dL Low 13.0-16.5 [facility] Immature granulocytes/100 WB C Auto (Bld)Ordered By: Geoffrey Garza on 05-04-2025 Immature granulocytes/100 WBC (Bld) 0.800 % 0.0-0.9 [facility] Comment on above: IG% - Immature Granu locytes (promyelocytes, myelocytes and metamyelocytes) > 1% indicates that a LEFT SHIFT is Present. Interpretation of serum or p lasma protein pattern by immunofixation (narrative resultOrdered By: Geoffrey Garza on 05-04-2025 Protein Fractions Immunofixation Carlin [Interp] Comment: g/dL Not Observed [facility] Comment on above: Monoclonal IgM lambd a = 0.2 g/dlMonoclonal IgG lambda = 0.2 g/dlMonoclonal IgM kappa = 0.1 g/dl Iron measurement (mass/mass) Ordered By: Geoffrey Garza on 05-04-2025 Iron (Unsp spec) [Mass/Mass] 34 ug/dL Low 65-175 [facility] Iron+Iron Binding Capacityon 05-04-2025 TIBC 222 ug/dL Low 250-450 [facility] Comment on above: Order Comment: UNK Performed By: #### L 500.4050, L503.0106, L503.6030 ####[facility] [address] [place], [place], [id number] Laboratory - Chemistry and C hemistry - challengeOrdered By: Geoffrey Garza on 05-04-2025 AST [Catalytic activity/Vol] 20 U/L <38 [facility] MCV (mean corpuscular volume ) determinationOrdered By: Geoffrey Garza on 05-04-2025 MCV (RBC) [Entitic vol] 88.8 fL 80-94 [facility] Mean corpuscular hemoglobin (MCH) determinationOrdered By: Geoffrey Garza on 05-04-2025 MCH (RBC) [Entitic mass] 27.7 pg 27.0-32.0 [facility] Mean corpuscular hemoglobin concentration (MCHC) determinationOrdered By: Geoffrey Garza on 05-04-2025 MCHC (RBC) [Mass/Vol] 31.2 g/dL Low 32-36 [facility] Mean platelet volume determi nationOrdered By: Geoffrey Garza on 05-04-2025 Platelet mean volume (Bld) [Entitic vol] 8.9 fL 6.2-12.0 [facility] Monocyte percentageOrdered B y: Geoffrey Garza on 05-04-2025 Monocytes/100 WBC (Bld) 22.1 % High 0-10 [facility] Neutrophil percentageOrdered By: Geoffrey Garza on 05-04-2025 Neutrophils/100 WBC (Bld) 24.8 % Low 47-70 [facility] No Panel InformationOrdered By: Geoffrey Garza on 05-04-2025 Addendum Document Comment . [facility] Comment on above: Protein electrophore sis scan will follow via computer,mail, or firer locomotive delivery.Performed at: [address] Director: Alcides Alicea PhD, Phone: [phone] Unsaturated Iron Binding Capacity 188 ug/dL Low 228-428 [facility] 20 U/L <38 [facility] 188 ug/dL Low 228-428 [facility] Nucleated red blood cell per centageOrdered By: Geoffrey Garza on 05-04-2025 Nucleated RBC/100 WBC (Bld) [Ratio] 0 % 0-5 [facility] Platelet countOrdered By: Cheri Garza on 05-04-2025 Platelets (Bld) [#/Vol] 210 10*3/uL 150-450 [facility] Potassium measurement (mass/ volume)Ordered By: Geoffrey Garza on 05-04-2025 Potassium (Unsp spec) [Mass/Vol] 4.6 mmol/L 3.3-5.1 [facility] RBC Auto (Bld) [#/Vol]Ordere d By: Geoffrey Garza on 05-04-2025 RBC (Bld) [#/Vol] 4.11 10*6/uL Low 4.6-6.2 [facility] Retic Panelon 05-04-2025 IM RET FRACTION 25.40 High 3.00-15.90 [facility] Comment on above: Performed By: #### L 100.9950, L503.6550, L100.0100, L3100.3425 ####[facility] [address] [place], [address] RET-HE 28.5 pg Low 30-35 [facility] Comment on above: Performed By: #### L 100.9950, L503.6550, L100.0100, L3100.3425 ####[facility] [address] [place], [address] Retic Count 2.45 High 0.5-1.5 [facility] Comment on above: Performed By: #### L 100.9950, L503.6550, L100.0100, L3100.3425 ####[facility] [address] [place], [address] Reticulocyte hemoglobin equi valent (RET-He) measurementOrdered By: Geoffrey Garza on 05-04-2025 Hemoglobin (Reticulocytes) [Entitic mass] 28.5 pg Low 30-35 [facility] Reticulocytes Auto (Bld) [#/ Vol]Ordered By: Geoffrey Garza on 05-04-2025 Reticulocytes/100 RBC (Bld) 2.45 % High 0.5-1.5 [facility] Serum creatinine measurement (mass/volume)Ordered By: Geoffrey Garza on 05-04-2025 Creatinine [Mass/Vol] 1.14 mg/dL 0.70-1.20 [facility] Serum globulin measurement ( mass/volume)Ordered By: Geoffrey Garza on 05-04-2025 Globulin (S) [Mass/Vol] 3.8 g/dL 2.2-3.9 [facility] Serum glucose measurement (m ass/volume)Ordered By: Geoffrey Garza on 05-04-2025 Glucose [Mass/Vol] 90 mg/dL 70-99 [facility] Serum or plasma IgA measurem ent (mass/volume)Ordered By: Geoffrey Garza on 05-04-2025 IgA [Mass/Vol] 472 mg/dL High 61-437 [facility] Serum or plasma IgG measurem ent (mass/volume)Ordered By: Geoffrey Garza on 05-04-2025 IgG [Mass/Vol] 1475 mg/dL 603-1613 [facility] Serum or plasma alanine mccoy otransferase (ALT) measurementOrdered By: Geoffrey Garza on 05-04-2025 ALT [Catalytic activity/Vol] 6 U/L <47 [facility] Serum or plasma albumin donna urement (mass/volume)Ordered By: Geoffrey Garza on 05-04-2025 Albumin [Mass/Vol] 3.6 g/dL 3.4-4.8 [facility] Serum or plasma albumin/glob ulin mass ratioOrdered By: Geoffrey Garza on 05-04-2025 Albumin/Globulin [Mass ratio] 1.0 {ratio} 0.9-2.4 [facility] Serum or plasma alkaline salvador sphatase measurementOrdered By: Geoffrey Garza on 05-04-2025 ALP [Catalytic activity/Vol] 96 U/L 40-129 [facility] Serum or plasma alpha 1 glob ulin measurement by electrophoresis (mass/volume)Ordered By: Geoffrey Garza on 05-04-2025 Alpha 1 globulin Elph [Mass/Vol] 0.3 g/dL 0.0-0.4 [facility] Alpha 1 globulin Elph [Mass/Vol] 1.0 g/dL 0.4-1.0 [facility] Serum or plasma beta globuli n measurement by electrophoresis (mass/volume)Ordered By: Geoffrey Garza on 05-04-2025 Beta globulin Elph [Mass/Vol] 1.0 g/dL 0.7-1.3 [facility] Serum or plasma calcium donna urement (mass/volume)Ordered By: Geoffrey Garza on 05-04-2025 Calcium [Mass/Vol] 8.8 mg/dL 7.6-11.0 [facility] Serum or plasma ferritin yosef surement (mass/volume)Ordered By: Geoffrey Garza on 05-04-2025 Ferritin [Mass/Vol] 78 ng/mL 37-417 [facility] Serum or plasma gamma globul in measurement by electrophoresis (mass/volume)Ordered By: Geoffrey Garza on 05-04-2025 Gamma globulin Elph [Mass/Vol] 1.5 g/dL 0.4-1.8 [facility] Serum or plasma immunoelectr ophoresis interpretation (nominal result)Ordered By: Geoffrey Garza on 05-04-2025 Interpretation IEP [Interp] Comment High . [facility] Comment on above: Immunofixation shows IgM monoclonal protein with kappalight chain specificity.Immunofixation shows IgM monoclonal protein with lambdalight chain specificity.Immunofixation shows IgG monoclonal protein with lambdalight chain specificity. Serum or plasma iron saturat ion measurement (mass fraction)Ordered By: Geoffrey Garza on 05-04-2025 Iron saturation [Mass fraction] 15.0 % 9-55 [facility] Comment on above: Previous reported re sult: 15.0 %Edited by: RADAMES on 05/04/25:1655 Serum or plasma protein donna urement (mass/volume)Ordered By: Geoffrey Garza on 05-04-2025 Protein [Mass/Vol] 6.9 g/dL 6.0-8.5 [facility] Serum or plasma urea nitroge n measurement (mass/volume)Ordered By: Geoffrey Graza on 05-04-2025 Urea nitrogen [Mass/Vol] 13 mg/dL 4-19 [facility] Sodium levelOrdered By: Leroy Garza on 05-04-2025 Sodium [Moles/Vol] 138 mmol/L 133-145 [facility] Total proteinOrdered By: Polo Garza on 05-04-2025 Protein [Mass/Vol] 7.2 g/dL 5.9-8.4 [facility] Vitamin B12on 05-04-2025 Cobalamin (Vitamin B12) [Mass/Vol] 1485 pg/mL High 180-914 [facility] Comment on above: Performed By: #### L 500.4050, L503.0106, L503.6030 ####[facility] [address] [place], [place], [id number] Vitamin B12 ser/plasOrdered By: Geoffrey Garza on 05-04-2025 Cobalamin (Vitamin B12) [Mass/Vol] 1485 pg/mL High 180-914 [facility] White blood cell (WBC) count Ordered By: Geoffrey Garza on 05-04-2025 WBC (Bld) [#/Vol] 5.0 10*3/uL 4.4-11.0 [facility] Absolute lymphocyte countOrd ered By: Husam Khan on 12-29-2024 Lymphocytes Auto (Unsp spec) [#/Vol] 2.27 10*3/uL 0.83-4.51 [facility] Absolute neutrophil countOrd ered By: Husam Khan on 12-29-2024 Neutrophils (Bld) [#/Vol] 1.2 10*3/uL Low 2.0-7.7 [facility] Albumin to globulin ratioOrd ered By: Husam Khan on 12-29-2024 Albumin/Globulin [Mass ratio] 0.7 {ratio} Low 0.9-2.4 [facility] Automated lymphocyte count a s percentage of total leukocytesOrdered By: Husam Khan on 12-29-2024 Lymphocytes/100 WBC Auto (Unsp spec) 53.0 % High 19-41 [facility] Basophil percentageOrdered B y: Husam Khan on 12-29-2024 Basophils/100 WBC (Bld) 0.2 % 0-1 [facility] Bilirubin, totalOrdered By: Husam Khan on 12-29-2024 Bilirubin [Mass/Vol] 0.40 mg/dL 0.20-1.00 [facility] Comment on above: For patients on eltr ombopag therapy, use of Dimension [place] TBIL is not recommended. Blood urea nitrogen (BUN)/cr eatinine ratioOrdered By: Husam Khan on 12-29-2024 Urea nitrogen/Creatinine [Mass ratio] 9.6 mg/mg Low 10-20 [facility] CBC W/Diff, Automatedon Absolute Lymph 2.27 X10 3/uL Normal 0.83-4.51 [facility] Comment on above: Performed By: #### L 100.0100, L500.4050, L506.1000, L501.9520 ####[facility] [address] [place], [address] Absolute Neut 1.2 X10 3/uL Low 2.0-7.7 [facility] Comment on above: Performed By: #### L 100.0100, L500.4050, L506.1000, L501.9520 ####[facility] [address] [place], [address] Basophils/100 WBC (Bld) 0.2 % Normal 0-1 [facility] Comment on above: Performed By: #### L 100.0100, L500.4050, L506.1000, L501.9520 ####[facility] [address] [place], [address] Eosinophils/100 WBC (Bld) 1.6 % Normal 0-5 [facility] Comment on above: Performed By: #### L 100.0100, L500.4050, L506.1000, L501.9520 ####[facility] [address] [place], [address] Erythrocyte distribution width (RBC) [Ratio] 15.0 % High 11.6-14.6 [facility] Comment on above: Performed By: #### L 100.0100, L500.4050, L506.1000, L501.9520 ####[facility] [address] [place], [address] Hematocrit (Bld) [Volume fraction] 38.9 % Low 40-54 [facility] Comment on above: Performed By: #### L 100.0100, L500.4050, L506.1000, L501.9520 ####[facility] [address] [place], [address] Hemoglobin (Bld) [Mass/Vol] 12.3 g/dL Low 13.0-16.5 [facility] Comment on above: Performed By: #### L 100.0100, L500.4050, L506.1000, L501.9520 ####[facility] [address] [place], [address] IG% 0.500 Normal 0.0-0.9 [facility] Comment on above: Result Comment: IG% - Immature Granulocytes (promyelocytes, myelocytes andmetamyelocytes) > 1% indicates that a LEFT SHIFT is Present. Performed By: #### L 100.0100, L500.4050, L506.1000, L501.9520 ####[facility] [address] [place], [address] Lymphocytes/100 WBC (Bld) 53.0 % High 19-41 [facility] Comment on above: Performed By: #### L 100.0100, L500.4050, L506.1000, L501.9520 ####[facility] [address] [place], [address] MCH (RBC) [Entitic mass] 28.7 pg Normal 27.0-32.0 [facility] Comment on above: Performed By: #### L 100.0100, L500.4050, L506.1000, L501.9520 ####[facility] [address] [place], [address] MCHC (RBC) [Mass/Vol] 31.6 g/dL Low 32-36 [facility] Comment on above: Performed By: #### L 100.0100, L500.4050, L506.1000, L501.9520 ####[facility] [address] [place], [address] MCV (RBC) [Entitic vol] 90.7 fL Normal 80-94 [facility] Comment on above: Performed By: #### L 100.0100, L500.4050, L506.1000, L501.9520 ####[facility] [address] [place], [address] Monocytes/100 WBC (Bld) 17.5 % High 0-10 [facility] Comment on above: Performed By: #### L 100.0100, L500.4050, L506.1000, L501.9520 ####[facility] [address] [place], [address] Neutrophils/100 WBC (Bld) 27.2 % Low 47-70 [facility] Comment on above: Performed By: #### L 100.0100, L500.4050, L506.1000, L501.9520 ####[facility] [address] [place], [address] Nucleated RBC (Bld) [#/Vol] 0 10*3/uL Normal 0-5 [facility] Comment on above: Performed By: #### L 100.0100, L500.4050, L506.1000, L501.9520 ####[facility] [address] [place], [address] Platelet mean volume (Bld) [Entitic vol] 9.7 fL Normal 6.2-12.0 [facility] Comment on above: Performed By: #### L 100.0100, L500.4050, L506.1000, L501.9520 ####[facility] [address] [place], [address] Platelets (Bld) [#/Vol] 187 10*3/uL Normal 150-450 [facility] Comment on above: Performed By: #### L 100.0100, L500.4050, L506.1000, L501.9520 ####[facility] [address] [place], [address] RBC (Bld) [#/Vol] 4.29 10*6/uL Low 4.6-6.2 [facility] Comment on above: Performed By: #### L 100.0100, L500.4050, L506.1000, L501.9520 ####[facility] [address] [place], [address] RDW SD 49.2 fl High 35.1-43.9 [facility] Comment on above: Performed By: #### L 100.0100, L500.4050, L506.1000, L501.9520 ####[facility] [address] [place], [address] WBC (Bld) [#/Vol] 4.3 10*3/uL Low 4.4-11.0 [facility] Comment on above: Performed By: #### L 100.0100, L500.4050, L506.1000, L501.9520 ####[facility] [address] [place], [address] Carbon dioxide measurementOr dered By: Husam Khan on 12-29-2024 CO2 [Moles/Vol] 30.0 mmol/L 21.0-32.0 [facility] Chloride measurementOrdered By: Husam Khan on 12-29-2024 Chloride [Moles/Vol] 103 mmol/L 98-107 [facility] Comprehensive Metabolic Prof ilon 12-29-2024 Albumin [Mass/Vol] 3.1 g/dL Low 3.2-5.0 [facility] Comment on above: Performed By: #### L 100.0100, L500.4050, L506.1000, L501.9520 ####[facility] [address] [place], [address] Albumin/Globulin [Mass ratio] 0.7 {ratio} Low 0.9-2.4 [facility] Comment on above: Performed By: #### L 100.0100, L500.4050, L506.1000, L501.9520 ####[facility] [address] [place], [address] ALK P 97 U/L Normal 45-117 [facility] Comment on above: Performed By: #### L 100.0100, L500.4050, L506.1000, L501.9520 ####[facility] [address] [place], [address] ALT [Catalytic activity/Vol] 11 U/L Low 16-61 [facility] Comment on above: Performed By: #### L 100.0100, L500.4050, L506.1000, L501.9520 ####[facility] [address] [place], [address] AST [Catalytic activity/Vol] 15 U/L Normal 15-37 [facility] Comment on above: Performed By: #### L 100.0100, L500.4050, L506.1000, L501.9520 ####[facility] [address] [place], [address] Bilirubin [Mass/Vol] 0.40 mg/dL Normal 0.20-1.00 [facility] Comment on above: Result Comment: For patients on eltrombopag therapy, use of Dimension [place] TBIL is not recommended. Performed By: #### L 100.0100, L500.4050, L506.1000, L501.9520 ####[facility] [address] [place], [address] BUN/CRE 9.6 RATIO Low 10-20 [facility] Comment on above: Performed By: #### L 100.0100, L500.4050, L506.1000, L501.9520 ####[facility] [address] [place], [address] CA,Total 8.7 mg/dL Normal 8.5-10.1 [facility] Comment on above: Performed By: #### L 100.0100, L500.4050, L506.1000, L501.9520 ####[facility] [address] [place], [address] Chloride [Moles/Vol] 103 mmol/L Normal 98-107 [facility] Comment on above: Performed By: #### L 100.0100, L500.4050, L506.1000, L501.9520 ####[facility] [address] [place], [address] CO2 [Moles/Vol] 30.0 mmol/L Normal 21.0-32.0 [facility] Comment on above: Performed By: #### L 100.0100, L500.4050, L506.1000, L501.9520 ####[facility] [address] [place], [address] Creatinine [Mass/Vol] 1.15 mg/dL Normal 0.70-1.30 [facility] Comment on above: Result Comment: The validity of the calculated GFR GFRAA in patients over70 years has not been determined. Clinical correlation isessential. Performed By: #### L 100.0100, L500.4050, L506.1000, L501.9520 ####[facility] [address] [place], [address] EST GFR - AA 77 mL/min Normal >60 [facility] Comment on above: Result Comment: Afri can Congolese GFR Calc Performed By: #### L 100.0100, L500.4050, L506.1000, L501.9520 ####[facility] [address] [place], [address] GAP 5 Normal 5-15 [facility] Comment on above: Performed By: #### L 100.0100, L500.4050, L506.1000, L501.9520 ####[facility] [address] [place], [address] GFR/1.73 sq M.predicted among non-blacks MDRD (S/P/Bld) [Vol rate/Area] 64 mL/min/{1.73_m2} Normal >60 [facility] Comment on above: Result Comment: Non- GFR Calc Performed By: #### L 100.0100, L500.4050, L506.1000, L501.9520 ####[facility] [address] [place], [address] Globulin (S) [Mass/Vol] 4.4 g/dL High 2.2-4.2 [facility] Comment on above: Performed By: #### L 100.0100, L500.4050, L506.1000, L501.9520 ####[facility] [address] [place], [address] Glucose [Mass/Vol] 115 mg/dL High 74-106 [facility] Comment on above: Result Comment: Fast ing Glucose result from 100 to 125 mg/dLsuggests IMPAIRED HOMEOSTASIS per A.D.A. criteria. Performed By: #### L 100.0100, L500.4050, L506.1000, L501.9520 ####[facility] [address] [place], [address] Potassium [Moles/Vol] 3.9 mmol/L Normal 3.5-5.1 [facility] Comment on above: Performed By: #### L 100.0100, L500.4050, L506.1000, L501.9520 ####[facility] [address] [place], [address] Sodium [Moles/Vol] 138 mmol/L Normal 136-145 [facility] Comment on above: Performed By: #### L 100.0100, L500.4050, L506.1000, L501.9520 ####[facility] [address] [place], [address] T PROT 7.5 g/dL Normal 6.4-8.2 [facility] Comment on above: Performed By: #### L 100.0100, L500.4050, L506.1000, L501.9520 ####[facility] [address] [place], [address] Urea nitrogen [Mass/Vol] 11 mg/dL Normal 7-18 [facility] Comment on above: Performed By: #### L 100.0100, L500.4050, L506.1000, L501.9520 ####[facility] [address] [place], [address] Eosinophil percentageOrdered By: Husam Khan on 12-29-2024 Eosinophils/100 WBC (Bld) 1.6 % 0-5 [facility] Erythrocyte distribution wid th ratioOrdered By: Husam Khan on 12-29-2024 Erythrocyte distribution width (RBC) [Ratio] 15.0 % High 11.6-14.6 [facility] Erythrocyte distribution wid th standard deviationOrdered By: Husam Khan on 12-29-2024 Erythrocyte distribution width (RBC) [Ratio] 49.2 fl High 35.1-43.9 [facility] Glomerular filtration rate ( GFR) estimationOrdered By: Husam Khan on 12-29-2024 GFR/1.73 sq M.predicted among non-blacks MDRD (S/P/Bld) [Vol rate/Area] 64 mL/min/{1.73_m2} >60 [facility] Comment on above: Non- GFR Calc Glucose measurementOrdered B y: Husam Khan on 12-29-2024 Glucose [Mass/Vol] 115 mg/dL High 74-106 [facility] Comment on above: Fasting Glucose resu lt from 100 to 125 mg/dL suggests IMPAIRED HOMEOSTASIS per A.D.A. criteria. Hematocrit Auto (Bld) [Volum e fraction]Ordered By: Husam Khan on 12-29-2024 Hematocrit (Bld) [Volume fraction] 38.9 % Low 40-54 [facility] Hemoglobin measurementOrdere d By: Husam Khan on 12-29-2024 Hemoglobin (Bld) [Mass/Vol] 12.3 g/dL Low 13.0-16.5 [facility] Immature granulocytes/100 WB C Auto (Bld)Ordered By: Husam Khan on 12-29-2024 Immature granulocytes/100 WBC (Bld) 0.500 % 0.0-0.9 [facility] Comment on above: IG% - Immature Granu locytes (promyelocytes, myelocytes and metamyelocytes) > 1% indicates that a LEFT SHIFT is Present. Laboratory - Chemistry and C hemistry - challengeOrdered By: Husam Khan on 12-29-2024 AST [Catalytic activity/Vol] 15 U/L 15-37 [facility] MCV (mean corpuscular volume ) determinationOrdered By: Husam Khan on 12-29-2024 MCV (RBC) [Entitic vol] 90.7 fL 80-94 [facility] Mean corpuscular hemoglobin (MCH) determinationOrdered By: Husam Khan 12-29-2024 MCH (RBC) [Entitic mass] 28.7 pg 27.0-32.0 [facility] Mean corpuscular hemoglobin concentration (MCHC) determinationOrdered By: Husam Khan 12-29-2024 MCHC (RBC) [Mass/Vol] 31.6 g/dL Low 32-36 [facility] Mean platelet volume determi nationOrdered By: Husam Khan on 12-29-2024 Platelet mean volume (Bld) [Entitic vol] 9.7 fL 6.2-12.0 [facility] Monocyte percentageOrdered B y: Husam Khan on 12-29-2024 Monocytes/100 WBC (Bld) 17.5 % High 0-10 [facility] Neutrophil percentageOrdered By: Husam Khan on 12-29-2024 Neutrophils/100 WBC (Bld) 27.2 % Low 47-70 [facility] Nucleated red blood cell per centageOrdered By: Husam Khan on 12-29-2024 Nucleated RBC/100 WBC (Bld) [Ratio] 0 % 0-5 [facility] Platelet countOrdered By: Kennedy Khan on 12-29-2024 Platelets (Bld) [#/Vol] 187 10*3/uL 150-450 [facility] Potassium measurementOrdered By: Husam Khan 12-29-2024 Potassium [Moles/Vol] 3.9 mmol/L 3.5-5.1 [facility] RBC Auto (Bld) [#/Vol]Ordere d By: Husam Khan on 12-29-2024 RBC (Bld) [#/Vol] 4.29 10*6/uL Low 4.6-6.2 [facility] Serum anion gap measurementO rdered By: Husam Khan on 12-29-2024 Anion gap [Moles/Vol] 5 mmol/L 5-15 [facility] Serum globulin measurementOr dered By: Husam Khan on 12-29-2024 Globulin (S) [Mass/Vol] 4.4 g/dL High 2.2-4.2 [facility] Serum or plasma alanine mccoy otransferase (ALT) measurementOrdered By: Husam Khan 12-29-2024 ALT [Catalytic activity/Vol] 11 U/L Low 16-61 [facility] Serum or plasma albumin donna urement (mass/volume)Ordered By: Husam Khan 12-29-2024 Albumin [Mass/Vol] 3.1 g/dL Low 3.2-5.0 [facility] Serum or plasma alkaline salvador sphatase measurementOrdered By: Husam Khan 12-29-2024 ALP [Catalytic activity/Vol] 97 U/L 45-117 [facility] Serum or plasma calcium donna urement (mass/volume)Ordered By: Husam Khan 12-29-2024 Calcium [Mass/Vol] 8.7 mg/dL 8.5-10.1 [facility] Serum or plasma creatinine m easurement (mass/volume)Ordered By: Husam Khan 12-29-2024 Creatinine [Mass/Vol] 1.15 mg/dL 0.70-1.30 [facility] Comment on above: The validity of the calculated GFR & GFRAA in patients over 70 years has not been determined. Clinical correlation is essential. Serum or plasma thyroid stim ulating hormone (TSH) measurement (units/volume)Ordered By: Husam Khan 12-29-2024 TSH Qn 3.070 uIU/mL 0.358-3.740 [facility] Serum or plasma urea nitroge n measurement (mass/volume)Ordered By: Husam Khan 12-29-2024 Urea nitrogen [Mass/Vol] 11 mg/dL 7-18 [facility] Sodium levelOrdered By: Husam Khan on 12-29-2024 Sodium [Moles/Vol] 138 mmol/L 136-145 [facility] Thyroid Stim Hormone (TSH)on 12-29-2024 TSH 3.070 uIU/mL Normal 0.358-3.740 [facility] Comment on above: Performed By: #### L 100.0100, L500.4050, L506.1000, L501.9520 ####[facility] [address] [place], [address] Total proteinOrdered By: Husam Khan on 12-29-2024 Protein [Mass/Vol] 7.5 g/dL 6.4-8.2 [facility] Vitamin D,25 Hydroxyon 12-29 Vitamin D 25-OH 13.7 ng/mL Normal [facility] Comment on above: Result Comment: Inna min D 25(OH) Status Range Deficiency <20 ng/mL (50nmol/L) Insufficiency 20 - 30 ng/mL (50 - 75 nmol/L) Sufficiency 30 - 100 ng/mL (75 - 250 nmol/L) Toxicity >100 ng/mL (>250 nmol/L) Performed By: #### L 100.0100, L500.4050, L506.1000, L501.9520 ####[facility] [address] [place], [place], [address] White blood cell (WBC) count Ordered By: Husam Khan on 12-29-2024 WBC (Bld) [#/Vol] 4.3 10*3/uL Low 4.4-11.0 [facility] Basophil percentageOrdered B y: Marcy Roque on 09-02-2023 Basophil percentage 3.3 mg/dL 2.5-4.9 [facility] Chloride [Moles/Vol] 107 mmol/L 98-107 [facility] Glucose [Mass/Vol] 102 mg/dL 74-106 [facility] Comment on above: Fasting Glucose resu lt from 100 to 125 mg/dL suggests IMPAIRED HOMEOSTASIS per A.D.A. criteria. Potassium [Moles/Vol] 4.2 mmol/L 3.5-5.1 [facility] Sodium [Moles/Vol] 139 mmol/L 136-145 [facility] Laboratory - Chemistry and C hemistry - challengeOrdered By: Macry Roque on 09-02-2023 CO2 [Moles/Vol] 28.0 mmol/L 21.0-32.0 [facility] Urea nitrogen/Creatinine [Mass ratio] 13.6 mg/mg 10-20 [facility] No Panel InformationOrdered By: Marcy Roque on 09-02-2023 Estimated GFR (MDRD) Amer 66 mL/min >60 [facility] Comment on above: GFR Calc Estimated GFR (MDRD) Non-Af Amer 55 mL/min >60 [facility] Comment on above: Non- GFR Calc Serum or plasma albumin donna urement (mass/volume)Ordered By: Marcy Roque on 09-02-2023 Albumin [Mass/Vol] 3.5 g/dL 3.2-5.0 [facility] Serum or plasma calcium donna urement (mass/volume)Ordered By: Marcy Roque on 09-02-2023 Calcium [Mass/Vol] 8.9 mg/dL 8.5-10.1 [facility] Serum or plasma creatinine m easurement (mass/volume)Ordered By: Marcy Roque on 09-02-2023 Creatinine [Mass/Vol] 1.32 mg/dL 0.70-1.30 [facility] Comment on above: The validity of the calculated GFR & GFRAA in patients over 70 years has not been determined. Clinical correlation is essential. Serum or plasma urea nitroge n measurement (mass/volume)Ordered By: Marcy Roque on 09-02-2023 Urea nitrogen [Mass/Vol] 18 mg/dL 7-18 [facility] Urine creatinine measurement (mass/volume)Ordered By: Marcy Roque on 09-02-2023 Creatinine (U) [Mass/Vol] 240.00 mg/dL NO RANGE EST. [facility] Urine protein measurement (m ass/volume)Ordered By: Marcy oRque on 09-02-2023 Protein (U) [Mass/Vol] 49.5 mg/dL 0.0-11.8 [facility] Urine protein/creatinine mas s ratioOrdered By: Marcy Roque on 09-02-2023 Protein/Creatinine (U) [Mass ratio] 206 mg/g CRE 0-200 [facility] Absolute lymphocyte countOrd ered By: Geoffrey Garza on 07-07-2023 Lymphocytes Auto (Unsp spec) [#/Vol] 2.20 10*3/uL 0.83-4.51 [facility] Basophil percentageOrdered B y: Geoffrey Garza on 07-07-2023 Basophils/100 WBC (Bld) 0.2 % 0-1 [facility] Bilirubin [Mass/Vol] 0.50 mg/dL 0.20-1.00 [facility] Comment on above: For patients on eltr ombopag therapy, use of Dimension [place] TBIL is not recommended. Chloride [Moles/Vol] 106 mmol/L 98-107 [facility] Eosinophils/100 WBC (Bld) 1.6 % 0-5 [facility] Glucose [Mass/Vol] 112 mg/dL 74-106 [facility] Comment on above: Fasting Glucose resu lt from 100 to 125 mg/dL suggests IMPAIRED HOMEOSTASIS per A.D.A. criteria. Neutrophils (Bld) [#/Vol] 1.4 10*3/uL 2.0-7.7 [facility] Neutrophils/100 WBC (Bld) 32.0 % 47-70 [facility] Potassium [Moles/Vol] 3.3 mmol/L 3.5-5.1 [facility] Protein [Mass/Vol] 6.8 g/dL 6.4-8.2 [facility] Sodium [Moles/Vol] 139 mmol/L 136-145 [facility] WBC (Bld) [#/Vol] 4.3 10*3/uL 4.4-11.0 [facility] Blood erythrocytes count (nu mber/volume)Ordered By: Geoffrey Garza on 07-07-2023 RBC (Bld) [#/Vol] 4.12 10*6/uL 4.6-6.2 [facility] Blood hemoglobin measurement (mass/volume)Ordered By: Geoffrey Garza on 07-07-2023 Hemoglobin (Bld) [Mass/Vol] 12.6 g/dL 13.0-16.5 [facility] Blood lymphocytes/100 leukoc ytesOrdered By: [facility] on 07-07-2023 Lymphocytes/100 WBC (Bld) 51.5 % 19-41 [facility] Blood monocytes/100 leukocyt esOrdered By: [facility] on 07-07-2023 Monocytes/100 WBC (Bld) 14.5 % 0-10 [facility] Blood platelet mean volumeOr dered By: Geoffrey Garza on 07-07-2023 Platelet mean volume (Bld) [Entitic vol] 9.8 fL 6.2-12.0 [facility] Determination of erythrocyte mean corpuscular volume (MCV)Ordered By: [facility] on 07-07-2023 MCV (RBC) [Entitic vol] 95.4 fL 80-94 [facility] Hematocrit Auto (Bld) [Volum e fraction]Ordered By: [facility] Greg on 07-07-2023 Hematocrit (Bld) [Volume fraction] 39.3 % 40-54 [facility] Iron measurement (mass/mass) Ordered By: [facility] Greg on 07-07-2023 Iron (Unsp spec) [Mass/Mass] 64 ug/dL 65-175 [facility] Laboratory - Chemistry and C hemistry - challengeOrdered By: [facility] Greg on 07-07-2023 ALP [Catalytic activity/Vol] 94 U/L 45-117 [facility] ALT [Catalytic activity/Vol] 13 U/L 16-61 [facility] CO2 [Moles/Vol] 29.0 mmol/L 21.0-32.0 [facility] Globulin (S) [Mass/Vol] 3.7 g/dL 2.2-4.2 [facility] Urea nitrogen/Creatinine [Mass ratio] 9.8 mg/mg 10-20 [facility] Laboratory - Hematology and Cell countsOrdered By: [facility] on 07-07-2023 Erythrocyte distribution width (RBC) [Entitic vol] 46.0 fL 35.1-43.9 [facility] Erythrocyte distribution width (RBC) [Ratio] 13.5 % 11.6-14.6 [facility] [facility] Immature granulocytes/100 WBC (Bld) 0.200 % 0.0-0.9 [facility] Comment on above: IG% - Immature Granu locytes (promyelocytes, myelocytes and metamyelocytes) > 1% indicates that a LEFT SHIFT is Present. MCH (RBC) [Entitic mass] 30.6 pg 27.0-32.0 [facility] Nucleated RBC/100 WBC (Bld) [Ratio] 0 % 0-5 [facility] MCHC Auto (RBC) [Mass/Vol]Or dered By: Geoffrey Garza on 07-07-2023 MCHC (RBC) [Mass/Vol] 32.1 g/dL 32-36 [facility] No Panel InformationOrdered By: Geoffrey Garza on 07-07-2023 Estimated GFR (MDRD) Amer 73 mL/min >60 [facility] Comment on above: GFR Calc Estimated GFR (MDRD) Non-Af Amer 60 mL/min >60 [facility] Comment on above: Non- GFR Calc Total Iron Binding Capacity 247 ug/dL 250-450 [facility] Platelets bldOrdered By: Polo Garza on 07-07-2023 Platelets (Bld) [#/Vol] 168 10*3/uL 150-450 [facility] Serum or plasma albumin donna urement (mass/volume)Ordered By: Geoffrey Garza on 07-07-2023 Albumin [Mass/Vol] 3.1 g/dL 3.2-5.0 [facility] Serum or plasma albumin/glob ulin mass ratioOrdered By: Geoffrey Garza on 07-07-2023 Albumin/Globulin [Mass ratio] 0.8 {ratio} 0.9-2.4 [facility] Serum or plasma calcium donna urement (mass/volume)Ordered By: Geoffrey Garza on 07-07-2023 Calcium [Mass/Vol] 8.5 mg/dL 8.5-10.1 [facility] Serum or plasma creatinine m easurement (mass/volume)Ordered By: Geoffrey Garza on 07-07-2023 Creatinine [Mass/Vol] 1.22 mg/dL 0.70-1.30 [facility] Comment on above: The validity of the calculated GFR & GFRAA in patients over 70 years has not been determined. Clinical correlation is essential. Serum or plasma ferritin yosef surement (mass/volume)Ordered By: Geoffrey Garza on 07-07-2023 Ferritin [Mass/Vol] 51 ng/mL 26-388 [facility] Serum or plasma iron saturat ion measurement (mass fraction)[facility] Iron saturation [Mass fraction] 25.9 % 15.0-55.0 [facility] Serum or plasma urea nitroge n measurement (mass/volume)Ordered By: [facility] on 07-07-2023 Urea nitrogen [Mass/Vol] 12 mg/dL 7-18 [facility] Thin prep Papanicolaou smear with manual screeningOrdered By: [facility] 07-[facility]-2023 Thin prep Papanicolaou smear with manual screening 16 U/L 15-37 [facility] Thin prep Papanicolaou smear with manual screening 4 5-15 [facility] Absolute lymphocyte countOrd ered By: Husam Khan on 06-25-2023 Lymphocytes Auto (Unsp spec) [#/Vol] 2.16 10*3/uL 0.83-4.51 [facility] Basophil percentageOrdered B y: Husam Khan on 06-25-2023 Basophils/100 WBC (Bld) 0.4 % 0-1 [facility] Bilirubin [Mass/Vol] 0.40 mg/dL 0.20-1.00 [facility] Comment on above: For patients on eltr ombopag therapy, use of Dimension [place] TBIL is not recommended. Chloride [Moles/Vol] 108 mmol/L 98-107 [facility] Eosinophils/100 WBC (Bld) 1.5 % 0-5 [facility] Glucose [Mass/Vol] 103 mg/dL 74-106 [facility] Comment on above: Fasting Glucose resu lt from 100 to 125 mg/dL suggests IMPAIRED HOMEOSTASIS per A.D.A. criteria. Neutrophils (Bld) [#/Vol] 1.9 10*3/uL 2.0-7.7 [facility] Neutrophils/100 WBC (Bld) 39.6 % 47-70 [facility] Potassium [Moles/Vol] 3.7 mmol/L 3.5-5.1 [facility] Protein [Mass/Vol] 7.4 g/dL 6.4-8.2 [facility] Sodium [Moles/Vol] 140 mmol/L 136-145 [facility] WBC (Bld) [#/Vol] 4.7 10*3/uL 4.4-11.0 [facility] Blood erythrocytes count (nu mber/volume)Ordered By: Husam Khan on 06-25-2023 RBC (Bld) [#/Vol] 4.04 10*6/uL 4.6-6.2 [facility] Blood hemoglobin measurement (mass/volume)Ordered By: Husam Khan on 06-25-2023 Hemoglobin (Bld) [Mass/Vol] 13.0 g/dL 13.0-16.5 [facility] Blood lymphocytes/100 leukoc ytesOrdered By: Husam Khan on 06-25-2023 Lymphocytes/100 WBC (Bld) 45.6 % 19-41 [facility] Blood monocytes/100 leukocyt esOrdered By: Husam Khan on 06-25-2023 Monocytes/100 WBC (Bld) 12.7 % 0-10 [facility] Blood platelet mean volumeOr dered By: Husam Khan on 06-25-2023 Platelet mean volume (Bld) [Entitic vol] 10.0 fL 6.2-12.0 [facility] Determination of erythrocyte mean corpuscular volume (MCV)Ordered By: Husam Khan on 06-25-2023 MCV (RBC) [Entitic vol] 94.3 fL 80-94 [facility] Hematocrit Auto (Bld) [Volum e fraction]Ordered By: Husam Khan on 06-25-2023 Hematocrit (Bld) [Volume fraction] 38.1 % 40-54 [facility] Laboratory - Chemistry and C hemistry - challengeOrdered By: Husam Khan on 06-25-2023 ALP [Catalytic activity/Vol] 94 U/L 45-117 [facility] ALT [Catalytic activity/Vol] 15 U/L 16-61 [facility] CO2 [Moles/Vol] 24.0 mmol/L 21.0-32.0 [facility] Globulin (S) [Mass/Vol] 4.2 g/dL 2.2-4.2 [facility] Urea nitrogen/Creatinine [Mass ratio] 12.6 mg/mg 10-20 [facility] Laboratory - Hematology and Cell countsOrdered By: Husam Khan on 06-25-2023 Erythrocyte distribution width (RBC) [Entitic vol] 46.2 fL 35.1-43.9 [facility] Erythrocyte distribution width (RBC) [Ratio] 13.4 % 11.6-14.6 [facility] Immature granulocytes/100 WBC (Bld) 0.200 % 0.0-0.9 [facility] Comment on above: IG% - Immature Granu locytes (promyelocytes, myelocytes and metamyelocytes) > 1% indicates that a LEFT SHIFT is Present. MCH (RBC) [Entitic mass] 32.2 pg 27.0-32.0 [facility] Nucleated RBC/100 WBC (Bld) [Ratio] 0 % 0-5 [facility] MCHC Auto (RBC) [Mass/Vol]Or dered By: Husam Khan on 06-25-2023 MCHC (RBC) [Mass/Vol] 34.1 g/dL 32-36 [facility] No Panel InformationOrdered By: Husam Khan on 06-25-2023 Estimated GFR (MDRD) Amer 69 mL/min >60 [facility] Comment on above: GFR Calc Estimated GFR (MDRD) Non-Af Amer 57 mL/min >60 [facility] Comment on above: Non- GFR Calc Thyroid Stimulating Hormone (TSH) 2.81 uIU/mL 0.358-3.74 [facility] Vitamin D 25-Hydroxy 13.2 ng/mL [facility] Comment on above: Vitamin D 25(OH) Sta tus Range Deficiency <20 ng/mL (50nmol/L) Insufficiency 20 - 30 ng/mL (50 - 75 nmol/L) Sufficiency 30 - 100 ng/mL (75 - 250 nmol/L) Toxicity >100 ng/mL (>250 nmol/L) Platelets bldOrdered By: Husam Khan on 06-25-2023 Platelets (Bld) [#/Vol] 187 10*3/uL 150-450 [facility] Serum or plasma albumin donna urement (mass/volume)Ordered By: Husam Khan on 06-25-2023 Albumin [Mass/Vol] 3.2 g/dL 3.2-5.0 [facility] Serum or plasma albumin/glob ulin mass ratioOrdered By: Husam Khan on 06-25-2023 Albumin/Globulin [Mass ratio] 0.8 {ratio} 0.9-2.4 [facility] Serum or plasma calcium donna urement (mass/volume)Ordered By: Husam Khan on 06-25-2023 Calcium [Mass/Vol] 8.2 mg/dL 8.5-10.1 [facility] Serum or plasma creatinine m easurement (mass/volume)Ordered By: Husam Khan on 06-25-2023 Creatinine [Mass/Vol] 1.27 mg/dL 0.70-1.30 [facility] Comment on above: The validity of the calculated GFR & GFRAA in patients over 70 years has not been determined. Clinical correlation is essential. Serum or plasma urea nitroge n measurement (mass/volume)Ordered By: Husam Khan on 06-25-2023 Urea nitrogen [Mass/Vol] 16 mg/dL 7-18 [facility] Thin prep Papanicolaou smear with manual screeningOrdered By: Husam Khan on 06-25-2023 Thin prep Papanicolaou smear with manual screening 19 U/L 15-37 [facility] Thin prep Papanicolaou smear with manual screening 8 5-15 [facility] Culture, urineOrdered By: Dr Sara Roque on 02-12-2023 Bacteria identified Cx Nom (U) Mixed Gram Pos & Gram Neg Org [facility] 24 hour urine alpha 2 globul in/total protein ratio by electrophoresis (mass fraction)Ordered By: Dr. Roque on 02-10-2023 Alpha 2 globulin Elph (24H U) [Mass fraction] 7.5 % . [facility] 24 hour urine beta globulin/ total protein ratio by electrophoresis (mass fraction)Ordered By: Dr. Roque on 02-10-2023 Beta globulin Elph (24H U) [Mass fraction] 13.1 % . [facility] 24 hour urine gamma globulin /total protein ratio by electrophoresis (mass fraction)Ordered By: Dr. Roque on 02-10-2023 Gamma globulin Elph (24H U) [Mass fraction] 13.9 % . [facility] Amorphous sediment detection in urine sediment by light microscopyOrdered By: Dr. Roque on 02-10-2023 Amorphous sediment LM Ql (Urine sed) 2+ [facility] Basophil percentageOrdered B y: Dr. Roque on 02-10-2023 Basophil percentage 0 SEEN /hpf 0-5 [facility] Bilirubin Test strip Ql (U)O rdered By: Dr. Roque on 02-10-2023 Bilirubin Ql (U) Negative Negative [facility] Ketones Test strip Ql (U)Ord ered By: Dr. Roque on 02-10-2023 Ketones Ql (U) Negative Negative [facility] Mucus LM Ql (Urine sed)Order ed By: Dr. Roque on 02-10-2023 Mucus Ql (Urine sed) 0 SEEN /hpf [facility] Nitrite Test strip Ql (U)Ord ered By: Dr. Roque on 02-10-2023 Nitrite Ql (U) Negative Negative [facility] No Panel InformationOrdered By: Dr. Roque on 02-10-2023 Urine Immunofixation PEP Note Comment . [facility] Comment on above: Protein electrophore sis scan will follow via computer,mail, or firer locomotive delivery.Performed at: [address] Director: Alcides Alicea PhD, Phone: [phone] Protein Test strip Ql (U)Ord ered By: Dr. Roque on 02-10-2023 Protein Ql (U) 30 mg/dl Negative [facility] Squamous epithelial cells de tection in urine sediment by light microscopyOrdered By: Dr. Roque on 02-10-2023 Epithelial cells.squamous LM Ql (Urine sed) 0 SEEN /hpf 0-5 [facility] Urine albumin/total protein mass ratio by electrophoresisOrdered By: Dr. Roque on 02-10-2023 Albumin Elph (U) [Mass fraction] 61.3 % . [facility] Urine alpha 1 globulin/total protein ratio by electrophoresis (mass fraction)Ordered By: Dr. Roque on 02-10-2023 Alpha 1 globulin Elph (U) [Mass fraction] 4.1 % . [facility] Urine blood detectionOrdered By: Dr. Roque on 02-10-2023 RBC Ql (U) Negative Negative [facility] RBC Ql (U) 0 SEEN /hpf 0-5 [facility] Urine clarityOrdered By: Dr. Roque on 02-10-2023 Clarity (U) Clear Clear [facility] Urine color determinationOrd ered By: Dr. Roque on 02-10-2023 Color (U) Yellow Yellow [facility] Urine creatinine measurement (mass/volume)Ordered By: Dr. Roque on 02-10-2023 Creatinine (U) [Mass/Vol] 184.00 mg/dL NO RANGE EST. [facility] Urine glucose detectionOrder ed By: Dr. Roque on 02-10-2023 Glucose Ql (U) Normal mg/dl Normal [facility] Urine leukocyte esterase det ection by dipstickOrdered By: Dr. Roque on 02-10-2023 Leukocyte esterase Test strip Ql (U) Negative Negative [facility] Urine monoclonal protein/tot al protein mass ratio by electrophoresisOrdered By: Dr. Roque on 02-10-2023 Protein.monoclonal Elph (U) [Mass fraction] See comment [facility] Comment on above: NOT OBSERVED Urine pHOrdered By: Dr. Roque on 02-10-2023 pH (U) 5.0 [pH] 5.0 - 8.0 [facility] Urine protein measurement (m ass/volume)Ordered By: Dr. Roque on 02-10-2023 Protein (U) [Mass/Vol] 57.7 mg/dL 0.0-11.8 [facility] Protein (U) [Mass/Vol] 54.4 mg/dL Not Estab. [facility] Urine protein/creatinine mas s ratioOrdered By: Dr. Roque on 02-10-2023 Protein/Creatinine (U) [Mass ratio] 314 mg/g CRE 0-200 [facility] Urine sediment bacteria coun t by microscopy (number/high power field)Ordered By: Dr. Roque on 02-10-2023 Bacteria LM.HPF (Urine sed) [#/Area] 1 /[HPF] None Seen [facility] Urine specific gravity measu rementOrdered By: Dr. Rqoue on 02-10-2023 Specific gravity (U) [Rel density] 1.015 1.002-1.030 [facility] Urobilinogen Auto test strip Ql (U)Ordered By: Dr. Roque on 02-10-2023 Urobilinogen Ql (U) Normal mg/dl Normal [facility] Absolute lymphocyte countOrd ered By: Dr. Khan on 12-25-2022 Lymphocytes Auto (Unsp spec) [#/Vol] 2.24 10*3/uL 0.83-4.51 [facility] Basophil percentageOrdered B y: Dr. Khan on 12-25-2022 Basophils/100 WBC (Bld) 0.2 % 0-1 [facility] Bilirubin [Mass/Vol] 0.40 mg/dL 0.20-1.00 [facility] Comment on above: For patients on eltr ombopag therapy, use of Dimension [place] TBIL is not recommended. Chloride [Moles/Vol] 103 mmol/L 98-107 [facility] Eosinophils/100 WBC (Bld) 1.3 % 0-5 [facility] Glucose [Mass/Vol] 101 mg/dL 74-106 [facility] Comment on above: Fasting Glucose resu lt from 100 to 125 mg/dL suggests IMPAIRED HOMEOSTASIS per A.D.A. criteria. Neutrophils (Bld) [#/Vol] 1.6 10*3/uL 2.0-7.7 [facility] Neutrophils/100 WBC (Bld) 35.8 % 47-70 [facility] Potassium [Moles/Vol] 3.8 mmol/L 3.5-5.1 [facility] Protein [Mass/Vol] 7.5 g/dL 6.4-8.2 [facility] Sodium [Moles/Vol] 138 mmol/L 136-145 [facility] WBC (Bld) [#/Vol] 4.5 10*3/uL 4.4-11.0 [facility] Blood erythrocytes count (nu mber/volume)Ordered By: Dr. Khan on 12-25-2022 RBC (Bld) [#/Vol] 4.43 10*6/uL 4.6-6.2 [facility] Blood hemoglobin measurement (mass/volume)Ordered By: Dr. Khan on 12-25-2022 Hemoglobin (Bld) [Mass/Vol] 13.4 g/dL 13.0-16.5 [facility] Blood lymphocytes/100 leukoc ytesOrdered By: Dr. Khan on 12-25-2022 Lymphocytes/100 WBC (Bld) 50.2 % 19-41 [facility] Blood monocytes/100 leukocyt esOrdered By: Dr. Khan on 12-25-2022 Monocytes/100 WBC (Bld) 12.3 % 0-10 [facility] Blood platelet mean volumeOr dered By: Dr. Khan on 12-25-2022 Platelet mean volume (Bld) [Entitic vol] 9.6 fL 6.2-12.0 [facility] Determination of erythrocyte mean corpuscular volume (MCV)Ordered By: Dr. Khan on 12-25-2022 MCV (RBC) [Entitic vol] 93.9 fL 80-94 [facility] Hematocrit Auto (Bld) [Volum e fraction]Ordered By: Dr. Khan on 12-25-2022 Hematocrit (Bld) [Volume fraction] 41.6 % 40-54 [facility] Laboratory - Chemistry and C hemistry - challengeOrdered By: Dr. Khan on 12-25-2022 ALP [Catalytic activity/Vol] 90 U/L 45-117 [facility] ALT [Catalytic activity/Vol] 20 U/L 16-61 [facility] CO2 [Moles/Vol] 26.0 mmol/L 21.0-32.0 [facility] Globulin (S) [Mass/Vol] 4.1 g/dL 2.2-4.2 [facility] Urea nitrogen/Creatinine [Mass ratio] 9.9 mg/mg 10-20 [facility] Laboratory - Hematology and Cell countsOrdered By: Dr. Khan on 12-25-2022 Erythrocyte distribution width (RBC) [Entitic vol] 45.6 fL 35.1-43.9 [facility] Erythrocyte distribution width (RBC) [Ratio] 13.2 % 11.6-14.6 [facility] Immature granulocytes/100 WBC (Bld) 0.200 % 0.0-0.9 [facility] Comment on above: IG% - Immature Granu locytes (promyelocytes, myelocytes and metamyelocytes) > 1% indicates that a LEFT SHIFT is Present. MCH (RBC) [Entitic mass] 30.2 pg 27.0-32.0 [facility] Nucleated RBC/100 WBC (Bld) [Ratio] 0 % 0-5 [facility] Auto (RBC) [Mass/Vol]Or dered By: Dr. Khan on 12-25-2022 MCHC (RBC) [Mass/Vol] 32.2 g/dL 32-36 [facility] No Panel InformationOrdered By: Dr. Khan on 12-25-2022 Estimated GFR (MDRD) Amer 67 mL/min >60 [facility] Comment on above: GFR Calc Estimated GFR (MDRD) Non-Af Amer 55 mL/min >60 [facility] Comment on above: Non- GFR Calc Thyroid Stimulating Hormone (TSH) 1.95 uIU/mL 0.358-3.74 [facility] Vitamin D 25-Hydroxy 14.6 ng/mL [facility] Comment on above: Vitamin D 25(OH) Sta tus Range Deficiency <20 ng/mL (50nmol/L) Insufficiency 20 - 30 ng/mL (50 - 75 nmol/L) Sufficiency 30 - 100 ng/mL (75 - 250 nmol/L) Toxicity >100 ng/mL (>250 nmol/L) Platelets bldOrdered By: Dr. Khan on 12-25-2022 Platelets (Bld) [#/Vol] 198 10*3/uL 150-450 [facility] Serum or plasma albumin donna urement (mass/volume)Ordered By: Dr. Khan on 12-25-2022 Albumin [Mass/Vol] 3.4 g/dL 3.2-5.0 [facility] Serum or plasma albumin/glob ulin mass ratioOrdered By: Dr. Khan on 12-25-2022 Albumin/Globulin [Mass ratio] 0.8 {ratio} 0.9-2.4 [facility] Serum or plasma calcium donna urement (mass/volume)Ordered By: Dr. Khan on 12-25-2022 Calcium [Mass/Vol] 8.8 mg/dL 8.5-10.1 [facility] Serum or plasma creatinine m easurement (mass/volume)Ordered By: Dr. Khan on 12-25-2022 Creatinine [Mass/Vol] 1.31 mg/dL 0.70-1.30 [facility] Comment on above: The validity of the calculated GFR & GFRAA in patients over 70 years has not been determined. Clinical correlation is essential. Serum or plasma urea nitroge n measurement (mass/volume)Ordered By: Dr. Khan on 12-25-2022 Urea nitrogen [Mass/Vol] 13 mg/dL 7-18 [facility] Thin prep Papanicolaou smear with manual screeningOrdered By: Dr. Khan on 12-25-2022 Thin prep Papanicolaou smear with manual screening 17 U/L 15-37 [facility] Thin prep Papanicolaou smear with manual screening 9 5-15 [facility] Laboratory - Microbiology an d Antimicrobial susceptibilityOrdered By: Dr. Khan on 10-20-2022 SARS-CoV-2 (COVID-19) RNA TRICIA+probe Ql (Unsp spec) Not detected Not Detect [facility] Comment on above: Normal Reference Ran ge: Not DetectedMethod:(RT-PCR) real-time reverse transcriptase PCRLuminex Energate Instrument*The Food and Drug Administration (FDA) has issued an Emergency Use Authorization (EAU) for the Energate SARS-CoV-2 Assay for the rapid detection of [...] 10-20-2022 Influenza Types A,B Direct FA (RYLAN) [facility] RSV Ag EIAOrdered By: Dr. Kaleigh spencer on 10-20-2022 RSV Ag Immune stain Ql (Tiss) [facility] Basophil percentageon 2021 Basophil percentage 2.9 mg/dL 2.5-4.9 [facility] Chloride [Moles/Vol] 103 mmol/L 98-107 [facility] Work Phone: Glucose [Mass/Vol] 127 mg/dL 74-106 [facility] Work Phone: Comment on above: Fasting Glucose resu lt greater than or equal to 126 mg/dL suggests DIABETES MELLITUS per A.D.A. criteria. Potassium [Moles/Vol] 3.8 mmol/L 3.5-5.1 [facility] Work Phone: Sodium [Moles/Vol] 140 mmol/L 136-145 [facility] Work Phone: WBC (Bld) [#/Vol] 4.6 10*3/uL 4.4-11.0 [facility] Work Phone: Blood erythrocytes count (nu mber/volume)on 08-12-2022 RBC (Bld) [#/Vol] 4.40 10*6/uL 4.6-6.2 [facility] Work Phone: Blood hemoglobin measurement (mass/volume)on 08-12-2022 Hemoglobin (Bld) [Mass/Vol] 13.6 g/dL 13.0-16.5 [facility] Work Phone: Blood platelet mean volumeon 08-12-2022 Platelet mean volume (Bld) [Entitic vol] 9.6 fL 6.2-12.0 [facility] Work Phone: Determination of erythrocyte mean corpuscular volume (MCV)on 08-12-2022 MCV (RBC) [Entitic vol] 95.0 fL 80-94 [facility] Work Phone: Hematocrit Auto (Bld) [Volum e fraction]on 08-12-2022 Hematocrit (Bld) [Volume fraction] 41.8 % 40-54 [facility] Work Phone: Laboratory - Chemistry and C hemistry - challengeon 08-12-2022 CO2 [Moles/Vol] 29.0 mmol/L 21.0-32.0 [facility] Work Phone: Urea nitrogen/Creatinine [Mass ratio] 7.7 mg/mg 09-11 [facility] Work Phone: Laboratory - Hematology and Cell countson 08-12-2022 Erythrocyte distribution width (RBC) [Entitic vol] 46.3 fL 35.1-43.9 [facility] Work Phone: Erythrocyte distribution width (RBC) [Ratio] 13.2 % 11.6-14.6 [facility] Work Phone: MCH (RBC) [Entitic mass] 30.9 pg 27.0-32.0 [facility] Work Phone: MCHC Auto (RBC) [Mass/Vol]on 08-12-2022 MCHC (RBC) [Mass/Vol] 32.5 g/dL 32-36 [facility] Work Phone: No Panel Informationon 08-12 Estimated GFR (MDRD) Amer 68 mL/min >60 [facility] Work Phone: Comment on above: GFR Calc Estimated GFR (MDRD) Non-Af Amer 56 mL/min >60 [facility] Work Phone: Comment on above: Non- GFR Calc Platelets bldon 08-12-2022 Platelets (Bld) [#/Vol] 167 10*3/uL 150-450 [facility] Work Phone: Serum or plasma albumin donna urement (mass/volume)on 08-12-2022 Albumin [Mass/Vol] 3.3 g/dL 3.2-5.0 [facility] Work Phone: Serum or plasma calcium donna urement (mass/volume)on 08-12-2022 Calcium [Mass/Vol] 8.9 mg/dL 8.5-10.1 [facility] Work Phone: Serum or plasma creatinine m easurement (mass/volume)on 08-12-2022 Creatinine [Mass/Vol] 1.30 mg/dL 0.70-1.30 [facility] Work Phone: Comment on above: The validity of the calculated GFR & GFRAA in patients over 70 years has not been determined. Clinical correlation is essential. Serum or plasma urea nitroge n measurement (mass/volume)on 08-12-2022 Urea nitrogen [Mass/Vol] 10 mg/dL 7-18 [facility] Work Phone: [phone] Absolute lymphocyte counton 07-08-2022 Lymphocytes Auto (Unsp spec) [#/Vol] 1.83 10*3/uL 0.83-4.51 [facility] Work Phone: Albumin Elph [Mass/Vol]on Albumin [Mass/Vol] 3.4 g/dL 2.9-4.4 [facility] Work Phone: Basophil percentageon 2021 Basophils/100 WBC (Bld) 0.2 % 0-1 [facility] Work Phone: Bilirubin [Mass/Vol] 0.40 mg/dL 0.20-1.00 [facility] Work Phone: Comment on above: For patients on eltr ombopag therapy, use of Dimension [place] TBIL is not recommended. Chloride [Moles/Vol] 105 mmol/L 98-107 [facility] Work Phone: Eosinophils/100 WBC (Bld) 4.0 % 0-5 [facility] Work Phone: Glucose [Mass/Vol] 123 mg/dL 74-106 [facility] Work Phone: Comment on above: Fasting Glucose resu lt from 100 to 125 mg/dL suggests IMPAIRED HOMEOSTASIS per A.D.A. criteria. Neutrophils (Bld) [#/Vol] 1.5 10*3/uL 2.0-7.7 [facility] Work Phone: Neutrophils/100 WBC (Bld) 35.0 % 47-70 [facility] Work Phone: Potassium [Moles/Vol] 3.7 mmol/L 3.5-5.1 [facility] Work Phone: Protein [Mass/Vol] 7.2 g/dL 6.4-8.2 [facility] Work Phone: Sodium [Moles/Vol] 140 mmol/L 136-145 [facility] Work Phone: [phone] WBC (Bld) [#/Vol] 4.2 10*3/uL 4.4-11.0 [facility] Work Phone: [phone] Blood erythrocytes count (nu mber/volume)on 07-08-2022 RBC (Bld) [#/Vol] 4.26 10*6/uL 4.6-6.2 [facility] Work Phone: [phone] Blood hemoglobin measurement (mass/volume)on 07-08-2022 Hemoglobin (Bld) [Mass/Vol] 12.8 g/dL 13.0-16.5 [facility] Work Phone: [phone] Blood lymphocytes/100 leukoc yteson 07-08-2022 Lymphocytes/100 WBC (Bld) 43.6 % 19-41 [facility] Work Phone: [phone] Blood monocytes/100 leukocyt eson 07-08-2022 Monocytes/100 WBC (Bld) 16.7 % 0-10 [facility] Work Phone: [phone] Blood platelet mean volumeon 07-08-2022 Platelet mean volume (Bld) [Entitic vol] 9.2 fL 6.2-12.0 [facility] Work Phone: [phone] Determination of erythrocyte mean corpuscular volume (MCV)on 07-08-2022 MCV (RBC) [Entitic vol] 92.5 fL 80-94 [facility] Work Phone: [phone] Hematocrit Auto (Bld) [Volum e fraction]on 07-08-2022 Hematocrit (Bld) [Volume fraction] 39.4 % 40-54 [facility] Work Phone: [phone] Interpretation of serum or p lasma protein pattern by immunofixation (narrative resulton 07-08-2022 Protein Fractions Immunofixation Carlin [Interp] See comment [facility] Work Phone: [phone] Comment on above: MONOCLONAL IGG LAMBD A = 0.2 G/DLDUE TO THE SMALL QUANTITY OF MONOCLONAL IGM KAPPA, UNABLE TOQUANTITATE THE M-SPIKE Iron measurement (mass/mass) on 07-08-2022 Iron (Unsp spec) [Mass/Mass] 51 ug/dL 65-175 [facility] Work Phone: Laboratory - Chemistry and C hemistry - challengeon 07-08-2022 ALP [Catalytic activity/Vol] 95 U/L 45-117 [facility] Work Phone: ALT [Catalytic activity/Vol] 15 U/L 16-61 [facility] Work Phone: CO2 [Moles/Vol] 29.0 mmol/L 21.0-32.0 [facility] Work Phone: Cobalamin (Vitamin B12) [Mass/Vol] 1123 pg/mL 211-911 [facility] Work Phone: Urea nitrogen/Creatinine [Mass ratio] 10.4 mg/mg 10-20 [facility] Work Phone: Laboratory - Hematology and Cell countson 07-08-2022 Erythrocyte distribution width (RBC) [Entitic vol] 44.1 fL 35.1-43.9 [facility] Work Phone: Erythrocyte distribution width (RBC) [Ratio] 13.1 % 11.6-14.6 [facility] Work Phone: Immature granulocytes/100 WBC (Bld) 0.500 % 0.0-0.9 [facility] Work Phone: Comment on above: IG% - Immature Granu locytes (promyelocytes, myelocytes and metamyelocytes) > 1% indicates that a LEFT SHIFT is Present. MCH (RBC) [Entitic mass] 30.0 pg 27.0-32.0 [facility] Work Phone: Nucleated RBC/100 WBC (Bld) [Ratio] 0 % 0-5 [facility] Work Phone: MCHC Auto (RBC) [Mass/Vol]on 07-08-2022 MCHC (RBC) [Mass/Vol] 32.5 g/dL 32-36 [facility] Work Phone: No Panel Informationon 07-08 Addendum Document Comment . [facility] Work Phone: Comment on above: Protein electrophore sis scan will follow via computer,mail, or firer locomotive delivery.Performed at: [address] [id number] Director: Alcides Alicea PhD, Phone: [phone] Estimated GFR (MDRD) Amer 65 mL/min >60 [facility] Work Phone: Comment on above: GFR Calc Estimated GFR (MDRD) Non-Af Amer 54 mL/min >60 [facility] Work Phone: Comment on above: Non- GFR Calc Total Iron Binding Capacity 250 ug/dL 250-450 [facility] Work Phone: Platelets bldon 07-08-2022 Platelets (Bld) [#/Vol] 163 10*3/uL 150-450 [facility] Work Phone: Serum [id number] measu rement by electrophoresison 07-08-2022 Alpha 1 globulin Elph [Mass/Vol] 0.2 g/dL 0.0-0.4 [facility] Work Phone: Alpha 1 globulin Elph [Mass/Vol] 0.9 g/dL 0.4-1.0 [facility] Work Phone: Serum globulin measurement ( mass/volume)on 07-08-2022 Globulin (S) [Mass/Vol] 3.3 g/dL 2.2-3.9 [facility] Work Phone: Serum or plasma IgA measurem ent (mass/volume)on 07-08-2022 IgA [Mass/Vol] 464 mg/dL 61-437 [facility] Work Phone: Serum or plasma IgG measurem ent (mass/volume)on 07-08-2022 IgG [Mass/Vol] 1344 mg/dL [phone] [facility] Work Phone: Serum or plasma IgM measurem ent (mass/volume)on 07-08-2022 IgM [Mass/Vol] 148 mg/dL 15-143 [facility] Work Phone: Serum or plasma albumin donna urement (mass/volume)on 07-08-2022 Albumin [Mass/Vol] 3.2 g/dL 3.2-5.0 [facility] Work Phone: Serum or plasma albumin/glob ulin mass ratioon 07-08-2022 Albumin/Globulin [Mass ratio] 0.8 {ratio} 0.9-2.4 [facility] Work Phone: Serum or plasma beta globuli n measurement by electrophoresis (mass/volume)on 07-08-2022 Beta globulin Elph [Mass/Vol] 1.0 g/dL 0.7-1.3 [facility] Work Phone: Serum or plasma calcium donna urement (mass/volume)on 07-08-2022 Calcium [Mass/Vol] 8.7 mg/dL 8.5-10.1 [facility] Work Phone: Serum or plasma creatinine m easurement (mass/volume)on 07-08-2022 Creatinine [Mass/Vol] 1.34 mg/dL 0.70-1.30 [facility] Work Phone: Comment on above: The validity of the calculated GFR & GFRAA in patients over 70 years has not been determined. Clinical correlation is essential. Serum or plasma ferritin yosef surement (mass/volume)on 07-08-2022 Ferritin [Mass/Vol] 54 ng/mL 26-388 [facility] Work Phone: Serum or plasma gamma globul in measurement by electrophoresis (mass/volume)on 07-08-2022 Gamma globulin Elph [Mass/Vol] 1.3 g/dL 0.4-1.8 [facility] Work Phone: Serum or plasma immunoelectr ophoresis interpretation (nominal result)on 07-08-2022 Interpretation IEP [Interp] Comment . [facility] Work Phone: Comment on above: Immunofixation shows IgG monoclonal protein with lambdalight chain specificity.Immunofixation shows IgM monoclonal protein with kappalight chain specificity. Serum or plasma iron saturat ion measurement (mass fraction)on 07-08-2022 Iron saturation [Mass fraction] 20.4 % 15.0-55.0 [facility] Work Phone: Serum or plasma urea nitroge n measurement (mass/volume)on 07-08-2022 Urea nitrogen [Mass/Vol] 14 mg/dL 7-18 [facility] Work Phone: Thin prep Papanicolaou smear with manual screeningon 07-08-2022 Thin prep Papanicolaou smear with manual screening 18 U/L 15-37 [facility] Work Phone: Thin prep Papanicolaou smear with manual screening 6 5-15 [facility] Work Phone: Thin prep Papanicolaou smear with manual screening 1.1 0.7-1.7 [facility] Work Phone: Total protein bloodon 2021 Protein [Mass/Vol] 6.7 g/dL 6.0-8.5 [facility] Work Phone: Absolute lymphocyte counton 06-19-2022 Lymphocytes Auto (Unsp spec) [#/Vol] 1.86 10*3/uL 0.83-4.51 [facility] Work Phone: Basophil percentageon 2021 Basophils/100 WBC (Bld) 0.4 % 0-1 [facility] Work Phone: Bilirubin [Mass/Vol] 0.40 mg/dL 0.20-1.00 [facility] Work Phone: Comment on above: For patients on eltr ombopag therapy, use of Dimension [place] TBIL is not recommended. Chloride [Moles/Vol] 103 mmol/L 98-107 [facility] Work Phone: Eosinophils/100 WBC (Bld) 2.6 % 0-5 [facility] Work Phone: Glucose [Mass/Vol] 96 mg/dL 74-106 [facility] Work Phone: Neutrophils (Bld) [#/Vol] 1.8 10*3/uL 2.0-7.7 [facility] Work Phone: Neutrophils/100 WBC (Bld) 39.8 % 47-70 [facility] Work Phone: Potassium [Moles/Vol] 3.8 mmol/L 3.5-5.1 [facility] Work Phone: Protein [Mass/Vol] 7.4 g/dL 6.4-8.2 [facility] Work Phone: Sodium [Moles/Vol] 137 mmol/L 136-145 [facility] Work Phone: WBC (Bld) [#/Vol] 4.6 10*3/uL 4.4-11.0 [facility] Work Phone: Blood erythrocytes count (nu mber/volume)on 06-19-2022 RBC (Bld) [#/Vol] 4.38 10*6/uL 4.6-6.2 [facility] Work Phone: Blood hemoglobin measurement (mass/volume)on 06-19-2022 Hemoglobin (Bld) [Mass/Vol] 13.3 g/dL 13.0-16.5 [facility] Work Phone: Blood lymphocytes/100 leukoc yteson 06-19-2022 Lymphocytes/100 WBC (Bld) 40.6 % 19-41 [facility] Work Phone: Blood monocytes/100 leukocyt eson 06-19-2022 Monocytes/100 WBC (Bld) 16.4 % 0-10 [facility] Work Phone: Blood platelet mean volumeon 06-19-2022 Platelet mean volume (Bld) [Entitic vol] 10.0 fL 6.2-12.0 [facility] Work Phone: Determination of erythrocyte mean corpuscular volume (MCV)on 06-19-2022 MCV (RBC) [Entitic vol] 90.9 fL 80-94 [facility] Work Phone: Hematocrit Auto (Bld) [Volum e fraction]on 06-19-2022 Hematocrit (Bld) [Volume fraction] 39.8 % 40-54 [facility] Work Phone: Laboratory - Chemistry and C hemistry - challengeon 06-19-2022 ALP [Catalytic activity/Vol] 95 U/L 45-117 [facility] Work Phone: ALT [Catalytic activity/Vol] 18 U/L 16-61 [facility] Work Phone: CO2 [Moles/Vol] 27.0 mmol/L 21.0-32.0 [facility] Work Phone: Globulin (S) [Mass/Vol] 4.1 g/dL 2.2-4.2 [facility] Work Phone: Urea nitrogen/Creatinine [Mass ratio] 10.3 mg/mg 10-20 [facility] Work Phone: Laboratory - Hematology and Cell countson 06-19-2022 Erythrocyte distribution width (RBC) [Entitic vol] 44.1 fL 35.1-43.9 [facility] Work Phone: Erythrocyte distribution width (RBC) [Ratio] 13.3 % 11.6-14.6 [facility] Work Phone: Immature granulocytes/100 WBC (Bld) 0.200 % 0.0-0.9 [facility] Work Phone: Comment on above: IG% - Immature Granu locytes (promyelocytes, myelocytes and metamyelocytes) > 1% indicates that a LEFT SHIFT is Present. MCH (RBC) [Entitic mass] 30.4 pg 27.0-32.0 [facility] Work Phone: Nucleated RBC/100 WBC (Bld) [Ratio] 0 % 0-5 [facility] Work Phone: MCHC Auto (RBC) [Mass/Vol]on 06-19-2022 MCHC (RBC) [Mass/Vol] 33.4 g/dL 32-36 [facility] Work Phone: No Panel Informationon 06-19 Estimated GFR (MDRD) Amer 70 mL/min >60 [facility] Work Phone: Comment on above: GFR Calc Estimated GFR (MDRD) Non-Af Amer 58 mL/min >60 [facility] Work Phone: Comment on above: Non- GFR Calc Thyroid Stimulating Hormone (TSH) 2.13 uIU/mL 0.358-3.74 [facility] Work Phone: Vitamin D 25-Hydroxy 24.2 ng/mL [facility] Work Phone: Comment on above: Vitamin D 25(OH) Sta tus Range Deficiency <20 ng/mL (50nmol/L) Insufficiency 20 - 30 ng/mL (50 - 75 nmol/L) Sufficiency 30 - 100 ng/mL (75 - 250 nmol/L) Toxicity >100 ng/mL (>250 nmol/L) Platelets bldon 06-19-2022 Platelets (Bld) [#/Vol] 175 10*3/uL 150-450 [facility] Work Phone: Serum or plasma albumin donna urement (mass/volume)on 06-19-2022 Albumin [Mass/Vol] 3.3 g/dL 3.2-5.0 [facility] Work Phone: Serum or plasma albumin/glob ulin mass ratioon 06-19-2022 Albumin/Globulin [Mass ratio] 0.8 {ratio} 0.9-2.4 [facility] Work Phone: Serum or plasma calcium donna urement (mass/volume)on 06-19-2022 Calcium [Mass/Vol] 8.6 mg/dL 8.5-10.1 [facility] Work Phone: Serum or plasma creatinine m easurement (mass/volume)on 07-28-2022 Creatinine [Mass/Vol] 1.26 mg/dL 0.70-1.30 [facility] Work Phone: Comment on above: The validity of the calculated GFR & GFRAA in patients over 70 years has not been determined. Clinical correlation is essential. Serum or plasma urea nitroge n measurement (mass/volume)on 06-19-2022 Urea nitrogen [Mass/Vol] 13 mg/dL 7-18 [facility] Work Phone: Thin prep Papanicolaou smear with manual screeningon 06-19-2022 Thin prep Papanicolaou smear with manual screening 18 U/L 15-37 [facility] Work Phone: Thin prep Papanicolaou smear with manual screening 7 5-15 [facility] Work Phone: Absolute lymphocyte counton 03-04-2022 Lymphocytes Auto (Unsp spec) [#/Vol] 1.88 10*3/uL 0.83-4.51 [facility] Work Phone: Basophil percentageon 2021 Basophils/100 WBC (Bld) 0.5 % 0-1 [facility] Work Phone: Bilirubin [Mass/Vol] 0.50 mg/dL 0.20-1.00 [facility] Work Phone: Comment on above: For patients on eltr ombopag therapy, use of Dimension [place] TBIL is not recommended. Chloride [Moles/Vol] 104 mmol/L 98-107 [facility] Work Phone: Eosinophils/100 WBC (Bld) 1.0 % 0-5 [facility] Work Phone: Glucose [Mass/Vol] 122 mg/dL 74-106 [facility] Work Phone: Comment on above: Fasting Glucose resu lt from 100 to 125 mg/dL suggests IMPAIRED HOMEOSTASIS per A.D.A. criteria. Neutrophils (Bld) [#/Vol] 1.7 10*3/uL 2.0-7.7 [facility] Work Phone: Neutrophils/100 WBC (Bld) 40.1 % 47-70 [facility] Work Phone: Potassium [Moles/Vol] 3.8 mmol/L 3.5-5.1 [facility] Work Phone: Protein [Mass/Vol] 7.3 g/dL 6.4-8.2 [facility] Work Phone: Sodium [Moles/Vol] 138 mmol/L 136-145 [facility] Work Phone: WBC (Bld) [#/Vol] 4.2 10*3/uL 4.4-11.0 [facility] Work Phone: Blood erythrocytes count (nu mber/volume)on 03-04-2022 RBC (Bld) [#/Vol] 4.38 10*6/uL 4.6-6.2 [facility]: Blood hemoglobin measurement (mass/volume)on 03-04-2022 Hemoglobin (Bld) [Mass/Vol] 13.3 g/dL 13.0-16.5 [facility] Work Phone: Blood lymphocytes/100 leukoc yteson 03-04-2022 Lymphocytes/100 WBC (Bld) 45.2 % 19-41 [facility] Work Phone: [phone] Blood monocytes/100 leukocyt eson 03-04-2022 Monocytes/100 WBC (Bld) 13.0 % 0-10 [facility] Work Phone: Blood platelet mean volumeon 03-04-2022 Platelet mean volume (Bld) [Entitic vol] 9.9 fL 6.2-12.0 [facility] Work Phone: Determination of erythrocyte mean corpuscular volume (MCV)on 03-04-2022 MCV (RBC) [Entitic vol] 92.0 fL 80-94 [facility] Work Phone: Hematocrit Auto (Bld) [Volum e fraction]on 03-04-2022 Hematocrit (Bld) [Volume fraction] 40.3 % 40-54 [facility] Work Phone: Laboratory - Chemistry and C hemistry - challengeon 03-04-2022 ALP [Catalytic activity/Vol] 96 U/L 45-117 [facility] Work Phone: ALT [Catalytic activity/Vol] 18 U/L 16-61 [facility] Work Phone: CO2 [Moles/Vol] 28.0 mmol/L 21.0-32.0 [facility] Work Phone: Globulin (S) [Mass/Vol] 3.9 g/dL 2.2-4.2 [facility] Work Phone: Urea nitrogen/Creatinine [Mass ratio] 7.9 mg/mg 10-20 [facility] Work Phone: Laboratory - Hematology and Cell countson 03-04-2022 Erythrocyte distribution width (RBC) [Entitic vol] 42.7 fL 35.1-43.9 [facility] Work Phone: Erythrocyte distribution width (RBC) [Ratio] 12.8 % 11.6-14.6 [facility] Work Phone: Immature granulocytes/100 WBC (Bld) 0.200 % 0.0-0.9 [facility] Work Phone: Comment on above: IG% - Immature Granu locytes (promyelocytes, myelocytes and metamyelocytes) > 1% indicates that a LEFT SHIFT is Present. MCH (RBC) [Entitic mass] 30.4 pg 27.0-32.0 [facility] Work Phone: Nucleated RBC/100 WBC (Bld) [Ratio] 0 % 0-5 [facility] Work Phone: MCHC Auto (RBC) [Mass/Vol]on 03-04-2022 MCHC (RBC) [Mass/Vol] 33.0 g/dL 32-36 [facility] Work Phone: No Panel Informationon 03-04 Estimated GFR (MDRD) Amer 57 mL/min >60 [facility] Work Phone: Comment on above: GFR Calc Estimated GFR (MDRD) Non-Af Amer 47 mL/min >60 [facility] Work Phone: Comment on above: Non- GFR Calc Thyroid Stimulating Hormone (TSH) 2.06 uIU/mL 0.358-3.74 [facility] Work Phone: Vitamin D 25-Hydroxy 23.2 ng/mL [facility] Work Phone: Comment on above: Vitamin D 25(OH) Sta tus Range Deficiency <20 ng/mL (50nmol/L) Insufficiency 20 - 30 ng/mL (50 - 75 nmol/L) Sufficiency 30 - 100 ng/mL (75 - 250 nmol/L) Toxicity >100 ng/mL (>250 nmol/L) Platelets bldon 03-04-2022 Platelets (Bld) [#/Vol] 173 10*3/uL 150-450 [facility] Work Phone: Serum or plasma albumin donna urement (mass/volume)on 03-04-2022 Albumin [Mass/Vol] 3.4 g/dL 3.2-5.0 [facility] Work Phone: Serum or plasma albumin/glob ulin mass ratioon 03-04-2022 Albumin/Globulin [Mass ratio] 0.9 {ratio} 0.9-2.4 [facility] Work Phone: Serum or plasma calcium donna urement (mass/volume)on 03-04-2022 Calcium [Mass/Vol] 8.2 mg/dL 8.5-10.1 [facility] Work Phone: Serum or plasma creatinine m easurement (mass/volume)on 03-04-2022 Creatinine [Mass/Vol] 1.51 mg/dL 0.70-1.30 [facility] Work Phone: Comment on above: The validity of the calculated GFR & GFRAA in patients over 70 years has not been determined. Clinical correlation is essential. Serum or plasma urea nitroge n measurement (mass/volume)on 03-04-2022 Urea nitrogen [Mass/Vol] 12 mg/dL 7-18 [facility] Work Phone: [phone] Thin prep Papanicolaou smear with manual screeningon 03-04-2022 Thin prep Papanicolaou smear with manual screening 15 U/L 15-37 [facility] Work Phone: Thin prep Papanicolaou smear with manual screening 6 5-15 [facility] Work Phone: Absolute lymphocyte counton 01-08-2022 Lymphocytes Auto (Unsp spec) [#/Vol] 1.65 10*3/uL 0.83-4.51 [facility] Work Phone: Albumin Elph [Mass/Vol]on Albumin [Mass/Vol] 3.4 g/dL [facility] Work Phone: Basophil percentageon 2021 Basophils/100 WBC (Bld) 0.2 % 0-1 [facility] Work Phone: Bilirubin [Mass/Vol] 0.50 mg/dL 0.20-1.00 [facility] Work Phone: Comment on above: For patients on eltr ombopag therapy, use of Dimension [place] TBIL is not recommended. Chloride [Moles/Vol] 104 mmol/L 98-107 [facility] Work Phone: [phone] Eosinophils/100 WBC (Bld) 1.5 % 0-5 [facility] Work Phone: Glucose [Mass/Vol] 99 mg/dL 74-106 [facility] Work Phone: [phone] Neutrophils (Bld) [#/Vol] 2.4 10*3/uL 2.0-7.7 [facility] Work Phone: Neutrophils/100 WBC (Bld) 50.6 % 47-70 [facility] Work Phone: [phone] Potassium [Moles/Vol] 3.7 mmol/L 3.5-5.1 [facility] Work Phone: Protein [Mass/Vol] 7.7 g/dL 6.4-8.2 [facility] Work Phone: Sodium [Moles/Vol] 139 mmol/L 136-145 [facility] Work Phone: WBC (Bld) [#/Vol] 4.8 10*3/uL 4.4-11.0 [facility] Work Phone: Blood erythrocytes count (nu mber/volume)on 01-08-2022 RBC (Bld) [#/Vol] 4.60 10*6/uL 4.6-6.2 [facility] Work Phone: [phone] Blood hemoglobin measurement (mass/volume)on 01-08-2022 Hemoglobin (Bld) [Mass/Vol] 14.3 g/dL 13.0-16.5 [facility] Work Phone: Blood lymphocytes/100 leukoc yteson 01-08-2022 Lymphocytes/100 WBC (Bld) 34.2 % 19-41 [facility] Work Phone: Blood monocytes/100 leukocyt eson 01-08-2022 Monocytes/100 WBC (Bld) 13.3 % 0-10 [facility] Work Phone: Blood platelet mean volumeon 01-08-2022 Platelet mean volume (Bld) [Entitic vol] 10.1 fL 6.2-12.0 [facility] Work Phone: Determination of erythrocyte mean corpuscular volume (MCV)on 01-08-2022 MCV (RBC) [Entitic vol] 94.1 fL 80-94 [facility] Work Phone: [phone] Hematocrit Auto (Bld) [Volum e fraction]on 01-08-2022 Hematocrit (Bld) [Volume fraction] 43.3 % 40-54 [facility] Work Phone: Interpretation of serum or p lasma protein pattern by immunofixation (narrative resulton 01-08-2022 Protein Fractions Immunofixation Carlin [Interp] See comment [facility] Work Phone: Comment on above: Monoclonal IgG kappa = 0.5 g/dlMonoclonal IgG lambda = 0.2 g/dlDue to the small quantity of monoclonal IgM kappa, unable toquantitate the M-spike. Iron measurement (mass/mass) on 01-08-2022 Iron (Unsp spec) [Mass/Mass] 72 ug/dL 65-175 [facility] Work Phone: Laboratory - Chemistry and C hemistry - challengeon 01-08-2022 ALP [Catalytic activity/Vol] 103 U/L 45-117 [facility] Work Phone: [phone] ALT [Catalytic activity/Vol] 18 U/L 16-61 [facility] Work Phone: CO2 [Moles/Vol] 27.0 mmol/L 21.0-32.0 [facility] Work Phone: Urea nitrogen/Creatinine [Mass ratio] 13.0 mg/mg 10-20 [facility] Work Phone: Laboratory - Hematology and Cell countson 01-08-2022 Erythrocyte distribution width (RBC) [Entitic vol] 44.8 fL 35.1-43.9 [facility] Work Phone: Erythrocyte distribution width (RBC) [Ratio] 13.2 % 11.6-14.6 [facility] Work Phone: Immature granulocytes/100 WBC (Bld) 0.200 % 0.0-0.9 [facility] Work Phone: Comment on above: IG% - Immature Granu locytes (promyelocytes, myelocytes and metamyelocytes) > 1% indicates that a LEFT SHIFT is Present. MCH (RBC) [Entitic mass] 31.1 pg 27.0-32.0 [facility] Work Phone: Nucleated RBC/100 WBC (Bld) [Ratio] 0 % 0-5 [facility] Work Phone: MCHC Auto (RBC) [Mass/Vol]on 01-08-2022 MCHC (RBC) [Mass/Vol] 33.0 g/dL 32-36 [facility] Work Phone: No Panel Informationon 01-08 Addendum Document Comment [facility] Work Phone: Comment on above: Protein electrophore sis scan will follow via computer,mail, or fire[employer] locom[employer] delivery.Performed at: [address] [id number] Director: Alcides Alicea PhD, Phone: [phone] Estimated GFR (MDRD) Amer 72 mL/min >60 [facility] Comment on above: GFR Calc Estimated GFR (MDRD) Non-Af Amer 60 mL/min >60 [facility] Work Phone: Comment on above: Non- GFR Calc Total Iron Binding Capacity 294 ug/dL 250-450 [facility] Work Phone: 72 mL/min >60 [facility] Platelets bldon 01-08-2022 Platelets (Bld) [#/Vol] 176 10*3/uL 150-450 [facility] Work Phone: Serum [id number] measu rement by electrophoresison 01-08-2022 Alpha 1 globulin Elph [Mass/Vol] 0.2 g/dL [facility] Work Phone: Alpha 1 globulin Elph [Mass/Vol] 0.9 g/dL [facility] Work Phone: Serum globulin measurement ( mass/volume)on 01-08-2022 Globulin (S) [Mass/Vol] 3.6 g/dL [facility] Work Phone: Serum or plasma IgA measurem ent (mass/volume)on 01-08-2022 IgA [Mass/Vol] 486 mg/dL [facility] Work Phone: Serum or plasma IgG measurem ent (mass/volume)on 01-08-2022 IgG [Mass/Vol] 1393 mg/dL [facility] Work Phone: Serum or plasma IgM measurem ent (mass/volume)on 01-08-2022 IgM [Mass/Vol] 160 mg/dL [facility] Work Phone: Serum or plasma albumin donna urement (mass/volume)on 01-08-2022 Albumin [Mass/Vol] 3.3 g/dL 3.2-5.0 [facility] Work Phone: Serum or plasma albumin/glob ulin mass ratioon 01-08-2022 Albumin/Globulin [Mass ratio] 0.8 {ratio} 0.9-2.4 [facility] Work Phone: Serum or plasma beta globuli n measurement by electrophoresis (mass/volume)on 01-08-2022 Beta globulin Elph [Mass/Vol] 1.1 g/dL [facility] Work Phone: Serum or plasma calcium donna urement (mass/volume)on 01-08-2022 Calcium [Mass/Vol] 8.6 mg/dL 8.5-10.1 [facility] Work Phone: Serum or plasma creatinine m easurement (mass/volume)on 01-08-2022 Creatinine [Mass/Vol] 1.23 mg/dL 0.70-1.30 [facility] Work Phone: Comment on above: The validity of the calculated GFR & GFRAA in patients over 70 years has not been determined. Clinical correlation is essential. Serum or plasma ferritin yosef surement (mass/volume)on 01-08-2022 Ferritin [Mass/Vol] 37 ng/mL 26-388 [facility] Work Phone: Serum or plasma gamma globul in measurement by electrophoresis (mass/volume)on 01-08-2022 Gamma globulin Elph [Mass/Vol] 1.4 g/dL [facility] Work Phone: Serum or plasma immunoelectr ophoresis interpretation (nominal result)on 01-08-2022 Interpretation IEP [Interp] Comment [facility] Work Phone: Comment on above: Immunofixation shows IgG monoclonal protein with kappalight chain specificity.Please note that samples from patients receivingDARZALEX(R) (daratumumab) treatment can appear as an IgGkappa and mask a complete response. If this patient isreceiving CJ, this DAMARIS assay interference can be removedby ordering test number [id number], Daratumumab-Specific, Serum and submitting a new sample for testing orby calling the lab to add this test to the current sample.Immunofixation shows IgM monoclonal protein with kappalight chain specificity.Immunofixation shows IgG monoclonal protein with lambdalight chain specificity. Serum or plasma iron saturat ion measurement (mass fraction)on 01-08-2022 Iron saturation [Mass fraction] 24.5 % 15.0-55.0 [facility] Work Phone: Serum or plasma urea nitroge n measurement (mass/volume)on 01-08-2022 Urea nitrogen [Mass/Vol] 16 mg/dL 7-18 [facility] Work Phone: Thin prep Papanicolaou smear with manual screeningon 01-08-2022 Thin prep Papanicolaou smear with manual screening 19 U/L 15-37 [facility] Work Phone: Thin prep Papanicolaou smear with manual screening 8 5-15 [facility] Work Phone: Thin prep Papanicolaou smear with manual screening 1.0 [facility] Work Phone: Total protein bloodon 2021 Protein [Mass/Vol] 7.0 g/dL [facility] Work Phone: Basophil percentageon 2020 Basophil percentage 3.8 mg/dL 2.5-4.9 [facility] Work Phone: Chloride [Moles/Vol] 103 mmol/L 98-107 [facility] Work Phone: Glucose [Mass/Vol] 89 mg/dL 74-106 [facility] Work Phone: Comment on above: Please note revised GLUCOSE reference range effective 2017. Potassium [Moles/Vol] 3.6 mmol/L 3.5-5.1 [facility] Work Phone: Sodium [Moles/Vol] 140 mmol/L 136-145 [facility] Work Phone: Laboratory - Chemistry and C hemistry - challengeon 11-11-2021 CO2 [Moles/Vol] 30.0 mmol/L 21.0-32.0 [facility] Work Phone: Urea nitrogen/Creatinine [Mass ratio] 12.4 mg/mg 10- [facility] Work Phone: No Panel Informationon 11-11 Estimated GFR (MDRD) Amer 80 mL/min >60 [facility] Work Phone: Comment on above: GFR Calc Estimated GFR (MDRD) Non-Af Amer 66 mL/min >60 [facility] Work Phone: Comment on above: Non- GFR Calc Serum or plasma albumin donna urement (mass/volume)on 11-11-2021 Albumin [Mass/Vol] 3.5 g/dL 3.2-5.0 [facility] Work Phone: Serum or plasma calcium donna urement (mass/volume)on 11-11-2021 Calcium [Mass/Vol] 8.6 mg/dL 8.5-10.1 [facility] Work Phone: Serum or plasma creatinine m easurement (mass/volume)on 11-11-2021 Creatinine [Mass/Vol] 1.13 mg/dL 0.70-1.30 [facility] Work Phone: Comment on above: The validity of the calculated GFR & GFRAA in patients over 70 years has not been determined. Clinical correlation is essential. Serum or plasma urea nitroge n measurement (mass/volume)on 11-11-2021 Urea nitrogen [Mass/Vol] 14 mg/dL 7-18 [facility] Work Phone: Urine creatinine measurement (mass/volume)on 11-11-2021 Creatinine (U) [Mass/Vol] 98.20 mg/dL NO RANGE EST. [facility] Work Phone: Urine protein measurement (m ass/volume)on 11-11-2021 Protein (U) [Mass/Vol] 183.5 mg/dL 0.0-11.8 [facility] Work Phone: Urine protein/creatinine mas s ratioon 11-11-2021 Protein/Creatinine (U) [Mass ratio] 1869 mg/g CRE 0-200 [facility] Work Phone: General Foods mix RAST testo n 06-27-2021 LDH [Catalytic activity/Vol] 160 U/L 87-241 [facility] Laboratory - Chemistry and C hemistry - challengeon 06-27-2021 Cobalamin (Vitamin B12) [Mass/Vol] 802 pg/mL 211-911 [facility] Work Phone: No Panel Informationon 06-27 Free Lambda Light Chains, Quant 31.9 mg/L High 5.7-26.3 [facility] 31.9 mg/L High 5.7-26.3 [facility] Serum immunoglobulin kappa l ight chains/immunoglobulin lambda light chains mass ratioon 06-27-2021 Immunoglobulin light chains.kappa/Immunoglobul in light chains.lambda (S) [Mass ratio] 2.82 High 0.26-1.65 [facility] Comment on above: Performed at: [place] [id number] Director: Alcides Alicea PhD, Phone: [phone] Serum or plasma immunoglobul in kappa light chains measurement (mass/volume)on 06-27-2021 Immunoglobulin light chains.kappa [Mass/Vol] 89.9 mg/L High 3.3-19.4 [facility] Thin prep Papanicolaou smear with manual screeningon 06-27-2021 Thin prep Papanicolaou smear with manual screening 160 U/L 87-241 [facility] Work Phone: CNOVon 09-19-2019 CNOV Office Visit (AGVASACC) ELIAS SHAH ([id number]) 1940 M Date Time Provider Department 09/19/19 2:00 PM HIGINIO BACON (KEE) JAZMYNE During your [...] Encephalopathy, He Was Discharged on 07/13/2019 to [facility]. He Continued to Have Ongoing Problems with Bradycardia, Tachycardia, Atrial Fibrillation. On July 27 He Was Diagnosed with Pneumonia and Treated with IV Vancomycin and Cefepime. Additionally, in follow-up he had melena with acute blood loss anemia and was readmitted to [facility]. He was discharged on August 26, 2019 To fpc facility. Was finally discharged back home last [...] F/U: Scheduled to see Dr. Ann in [place], with like to move it up so [...] mm [facility] Cristhian Trifecta pericardial prosthesis at [facility] by Dr. 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 Rivers - Vitamin D deficiency PAST SURGICAL HISTORY Procedure Laterality Date - ATRIAL APPENDAGE LIGATION 07/04/2019 35 mm AtriCure clip at [facility] by Dr. Rivers - CABG (2) VEIN GRAFTS AND ARTERIAL GRAFT(S 07/04/2019 at [facility] by Dr. Rivers - REPAIR UMBILICAL HERNIA 12/04/2018 after bowel perforation done at [facility] Dr. Young - REPLAC AORT VALV PROSTH VALV 07/04/[address] Cristhian Trifecta pericardial prosthesis at [facility] by Dr. Rivers FAMILY HISTORY Problem Relation [...] on. he should follow up with his core shaper top and PCP as scheduled, and only needs to be seen here on a as needed basis. Thanks. Electronically signed by Higinio Bacon APRN.CNP on September 19, 2019, 2:33 PM Higinio Bacon APRN.CNP, KEE 09/19/2019 3:04 PM Addendum - You may drive! - Please begin cardiac rehab. If they have not contacted you, please call them: Please see Dr Ann for clearance to begin cardiac rehab [facility] Cardiac Rehabilitation Hours: Thursday, Thursday, Thursday: 8:00 am to 4:30 pm Thursday and : 6:00 am to 2:00 pm The cardiac rehabilitation department is located on the first floor of the hospital, near [facility]. For more information, call . - Weight bearing restriction remains: No lifting more than 10 lbs. You may begin to gradually increase the amount of weight bearing. Cardiac rehab will help with this. - Please see your core shaper top regularly. They will take over medication management. [...] [G93.40] INVALID FOR* Coronary artery disease of [place] artery of betty*INVALID FOR* S/P AVR [Z95.2] [...] Ann for clearance to begin cardiac rehab [facility] Cardiac Rehabilitation Hours: Thursday, Thursday, Thursday: 8:00 am to 4:30 pm Thursday and : 6:00 am to 2:00 pm The cardiac rehabilitation department is located on the first floor of the hospital, near the [facility]. For more information, call . - Weight bearing restriction remains: No lifting more than 10 lbs. You may begin to gradually increase the amount of weight bearing. Cardiac rehab will help with this. - Please see your core shaper top regularly. They will take over medication management. - Please feel free to call us if you have any post-operative concerns. Thank you for coming to see me today!! Higinio Bacon, ADRYAN.LAVENDER FARM WORKER Prescriptions ordered this encounter Disp Refills Start [...] by HIGINIO BACON CNP on 09/19/19 [facility] PROGRESSon 09-19-2019 PROGRESS HNO ID: [id number] Author: Higinio (Kee) KEE Bacon Service: ? [...] Encephalopathy, He Was Discharged on 07/13/2019 to [facility]. He Continued to Have Ongoing Problems with Bradycardia, Tachycardia, Atrial Fibrillation. On July 27 He Was Diagnosed with Pneumonia and Treated with IV Vancomycin and Cefepime. Additionally, in follow-up he had melena with acute blood loss anemia and was readmitted to [facility]. He was discharged on August 26, 2019 To fpc facility. Was finally discharged back home last [...] mm St. Cristhian Trifecta pericardial prosthesis at [facility] by Dr. 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 Rivers - Vitamin D deficiency PAST SURGICAL HISTORY Procedure Laterality Date - ATRIAL APPENDAGE LIGATION 07/04/2019 35 mm AtriCure clip at [facility] by Dr. Rivers - CABG (2) VEIN GRAFTS AND ARTERIAL GRAFT(S 07/04/2019 at [facility] by Dr. Rivers - REPAIR UMBILICAL HERNIA 12/04/2018 after bowel perforation done at [facility] Dr. Young - REPLAC AORT VALV PROSTH VALV 07/04/[address] Cirsthian Trifecta pericardial prosthesis at [facility] by Dr. Rivers FAMILY HISTORY Problem Relation [...] advised to change by Dr. Primo Bacon APRN.LAVENDER FARM WORKER In summary, Patient is doing quite well overall after his combined CABG aVR surgery, with no major complaints. Patient is released to drive, work. Patient should start cardiac rehab from this point on. he should follow up with his core shaper top and PCP as scheduled, and only needs to be seen here on a as needed basis. Thanks. Electronically signed by Higinio Bacon APRN.CNP on September 19, 2019, 2:33 PM [facility] CASE MANAGEMon 08-26-2019 CASE MANAGEM HNO ID: [id number] Author: Serene Amaya Service: Care Management Author Type: ? Type: Care Mgt Progress Note Filed: 08/29/2019 4:04 PM Note Text: CARE MANAGEMENT PROGRESS NOTE SERVICE DATE: 08/29/2019 SERVICE TIME: 1200 LOS: 6 days IM letter given to patient on 08/26/2019. SIGNATURE: Janee Amaya PATIENT NAME: Elias Shah DATE: August 29, 2019 TIME: 12:17 PM PAGER/CONTACT #: [phone] [facility] CASE MANAGEM HNO ID: [id number] Author: Barbara (Rn) Jude RN Service: Care Management Author Type: Registered Nurse Type: Care Mgt Progress Note Filed: 08/26/2019 3:07 PM Note Text: CARE MANAGEMENT DISCHARGE NOTE SERVICE DATE: 08/26/2019 SERVICE TIME: 3:05 PM LOS: 6 days Admission Date: 08/20/2019 DISCHARGE ARRANGEMENT (list agency and phone number) longterm facility: Was an expedited discharge program used? [...] COMMUNICATION: . TRANSPORTATION ARRANGEMENTS: Mode of Transportation: [employer] Transportation Agency and Phone #: [facility] ( [facility] ) [phone] / [phone]. Date of Trip: 08/26/2019 Type of Service: Wheelchair Is Patient Medicaid Pending: No Discussion of financial coverage occurred with Patient and Family . Front End Technician Location: [address] [place] [address] Destination: SNF Financial Care Management Responsibility: None Estimated Charge: na Approving Senior Hardware Design Engineer: na ADDITIONAL CONTACT RESOURCES: . Pt is D/C to SNF today. W/C transport at 4:30 PM, Patient and RN aware. TCVM to Amalia mccormack. SIGNATURE: Barbara Roque RN PATIENT NAME: Elias Shah DATE: August 26, 2019 TIME: 3:05 PM PAGER/CONTACT #: [phone] [facility] NURSING PROGon 08-26-2019 NURSING PROG HNO ID: [id number] Author: Yenifer GusmanRn) AGUSTO Tamayo Service: ? Author Type: Registered Nurse Type: Nursing Progress Note Filed: 08/26/2019 4:15 PM Note Text: Report called to Emiliano at [facility] at [phone]. [facility] NURSING PROG HNO ID: [id number] Author: Yenifer Shaikh) AGUSTO Tamayo Service: ? Author Type: Registered Nurse Type: Nursing Progress Note Filed: 08/26/2019 9:04 AM Note Text: Dr Peñaloza notified of pt's blood pressure and heart rate, potassium level. Ordered to hold Metoprolol and he will order Hydralazine. also notified of pt's c/o nausea and headache. PRN Zofran given. [facility] NURSING PROG HNO ID: [id number] Author: Rica GusmanRnSachin Garcia RN Service: ? Author Type: Registered Nurse Type: Nursing Progress Note Filed: 08/26/2019 5:53 AM Note Text: Nursing Progress Note Patient Name: Elias Shah Patient Location: [id number]- [id number] Daily Note: 0525: Paged sound at #[phone] regarding pt BP of 169/70 and HR 54, pt asymptomatic. 0546: Talked to Dr. Keane, orders to give Losartan early. This note was completed by: Rica Garcia RN [facility] PLAN OF CAREon 08-26-2019 PLAN OF CARE HNO ID: [id number] Author: Craig Duron (Pharmacist) Service: Pharmacy Author [...] Discharge Medication List. Patient discharged today to [facility] CRAIG DURON, PHARMACIST August 26, 2019 3:27 PM Pager: [...] HYDROcodone-acetamino phen 5-325 mg per tablet [facility] PROGRESSon 08-26-2019 PROGRESS HNO ID: [id number] Author: Janee Mccauley Service: General Surgery Author [...] Date 08/25/19699 - 08/26/1965808/26/19699 - 08/27/19658 Shift 8754-0087 9677-8283 6963-3237 24 Hour Total 3756-0456 1371-6695 3348-7063 24 Hour Total INTAKE PO 1080 849 065 2630 PO 1080 789 730 1515 Shift Total 1080 863 460 9485 OUTPUT Urine 100 100 Void (ml) 100 [...] q 12 H Labs: Recent Labs 08/26/19 0508/25/19 0742 08/25/19 0245 NA 142 -- 141 [...] mm St. Cristhian Trifecta pericardial prosthesis at [facility] by Dr. Rivers - Essential hypertension 02/11/2019 - Hyperlipidemia 02/01/2019 79 year old male with PMH HTN, HLD, atrial fibrillation, incarcerated umbilical hernia s/p SBR and hernia repair 11/[address] Felton at [facility], [facility] and now s/p 2 vessel CABG and [...] with attending: Dr Farris SIGNATURE: Janee Mccauley, FLATTENING MACHINE OPERATOR.GEOLOGIST PETROLEUM PATIENT NAME: Elias Shah DATE: August 26, 2019 TIME: 6:17 AM Emergency General Surgery Service Pager: For questions or concerns Mon-Fri 6a-5p please page [phone]. After 5pm and on Weekends and Holidays, please page [phone]. [facility] THERAPY NTon 10-04-2019 THERAPY NT HNO ID: [id number] Author: Aminata Cervantes/Carleen Durand Service: Occupational Therapy Author Type: Occupational Therapist Type: Therapy (PT/OT/Speech/Resp) Filed: 08/26/2019 12:01 PM Note Text: OCCUPATIONAL THERAPY MISSED VISIT SERVICE DATE: 08/26/2019 SERVICE TIME: 1147 to 1147 ROOM: [place] [address] Attempted Treatment. Patient not seen due to Declined. Patient reports he has been nauseas all day and does not want to do therapy at this time. Will follow up as able. SIGNATURE: ERIC Mcclain/Carroll PATIENT NAME: Elias Shah DATE: August 26, 2019 TIME: 12:01 PM [facility] CONSULTon 08-25-2019 CONSULT HNO ID: [id number] Author: Lisette Murillo Service: General Surgery Author Type: Resident Type: Consults Filed: 08/25/2019 4:06 PM Note Text: Attestation signed by Jerilyn Farris at 08/26/2019 4:23 PM ==== SURGERY STAFF: I discussed the management of this case with the surgical scheduler and agree with the plan of care as documented. Jerilyn Farris MD August 26, 2019 ==== EMERGENCY GENERAL SURGERY CONSULT SERVICE DATE: 08/25/2019 SERVICE TIME: 3:49 PM REASON FOR CONSULT: abscess/chest wall REQUESTING PHYSICIAN: Dr Peñaloza PRIMARY CARE PHYSICIAN: Mal aMin MD Subjective HISTORY OF PRESENT ILLNESS: Mr. [...] mm St. Cristhian Trifecta pericardial prosthesis at [facility] by Dr. 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 Rivers - Vitamin D deficiency PAST SURGICAL HISTORY Procedure Laterality Date - ATRIAL APPENDAGE LIGATION 07/04/2019 35 mm AtriCure clip at [facility] by Dr. Rivers - CABG (2) VEIN GRAFTS AND ARTERIAL GRAFT(S 07/04/2019 at [facility] by Dr. Rivers - REPAIR UMBILICAL HERNIA 12/04/2018 after bowel perforation done at [facility] Dr. Young - REPLAC AORT VALV PROSTH VALV 07/04/[address] Cristhian Trifecta pericardial prosthesis at [facility] by Dr. Rivers FAMILY HISTORY Problem Relation [...] described above. 4. Otherwise no acute disease. Data Conversion Analyst: PSCB Transcribe Date/Time: Aug 23 2019 4:28P Dictated by : PEGGY TEJEDA MD This examination was interpreted and the report reviewed and electronically signed by: PEGGY TEJEDA MD on Aug 23 2019 4:31PM EST Impression/Recommenda tions Patient is an 79 yo male with PMH HTN, HLD, atrial fibrillation, incarcerated umbilical hernia s/p SBR and hernia repair 11/[address] Felton at [facility], [facility] and now s/p 2 vessel CABG and [...] CONSULT PROGon 08-25-2019 CONSULT PROG HNO ID: [id number] Author: Zacarias Miles Service: Gastroenterology Author Type: [...] iron supplement for about a week, call [phone] to schedule appointment with Dr. Peter). ? GI will sign off call with questions SIGNATURE: Zacarias Miles APRN.CNP PATIENT NAME: Elias Shah DATE: August 25, 2019 TIME: 2:46 PM NUMBER: [phone] [facility] NURSING PROGon 08-25-2019 NURSING PROG HNO ID: [id number] Author: Yenifer (Rn) AGUSTO Tamayo Service: ? Author Type: Registered Nurse Type: Nursing Progress Note Filed: 08/25/2019 9:25 AM Note Text: Dr Peñaloza notified of pt's c/o painful rash on forehead and raised, reddened cyst-like area to right breast. He will address. [facility] NURSING PROG HNO ID: [id number] Author: Fernanda GusmanRn) AGUSTO Diaz Service: ? Author Type: Registered Nurse Type: Nursing Progress Note Filed: 08/25/2019 3:45 AM Note Text: Nursing Progress Note Patient Name: Elias Shah Patient Location: [id number]/[facility]- [id number] Daily Note: 0255: RN paged Sound at #[phone] regarding pt's BP of 170/72. Pt asymptomatic. No new orders at this time. RN will continue to monitor. This note was completed by: Fernanda Diaz RN [facility] NUTRITIONon 08-25-2019 NUTRITION HNO ID: [id number] Author: Sydnee Fisher RD (Ld) Service: Nutrition [...] August 25, 2019 TIME: 8:09 AM PAGER: [phone] [facility] PROCEDUREon 08-25-2019 PROCEDURE HNO ID: [id number] Author: Lisette Murillo Service: General Surgery Author Type: Resident Type: Procedures Filed: 08/25/2019 5:56 PM Note Text: Attestation signed by Jerilyn Farris at 08/26/2019 4:23 PM Jerilyn Farris MD August 26, 2019 BEDSIDE PROCEDURE NOTE PROCEDURE DATE: August 25, 2019 PROCEDURE START TIME: 4:50 pm PRIMARY PROCEDURALIST: Lisette Murillo MD SCOUT EXECUTIVE(S): None INFORMED CONSENT: Informed Consent obtained and [...] [facility] PROGRESSon 08-25-2019 PROGRESS HNO ID: [id number] Author: Ben Peñaloza Service: Hospital Medicine Author [...] -- 08/24/19 0945 activity - mobilize patient (nm,oh) 08/20/19 1615 vte pharmacologic prophylaxis contraindicated (fl,oh) 08/20/19 1615 pneumatic compression stockings (nm,oh) VTE Prophylaxis: VTE prophylaxis appropriate SIGNATURE: Ben Peñaloza MD PATIENT NAME: Elias Shah DATE: 08/25/2019 TIME: 3:07 PM PAGER: [phone] [facility] PROGRESS HNO ID: [id number] Author: Craig Duron (Pharmacist) Service: Pharmacy Author [...] this patient. Signature: JESUS ALBERTO PEREZ Pager/Extension: [phone] [facility] THERAPY NTon 08-25-2019 THERAPY NT HNO ID: [id number] Author: Nohemi (Pt) Shefali Service: Physical Therapy Author Type: Physical Therapist Type: Therapy (PT/OT/Speech/Resp) Filed: 08/25/2019 1:57 PM Note Text: Physical Therapy Treatment SERVICE DATE: 08/25/2019 SERVICE TIME: 1055 to 1118 ROOM: [place] [address] Recommended Discharge Disposition: Subacute/SNF Justification For Post [...] gait and mobility-other Interventions Provided: Gait Training (42972);Therapeutic Activity (21587) Therapeutic Activity (85336) Treatment Minutes: 15 1 unit Skilled Intervention(s): [...] marching, ) x 10-15 reps. Gait Training (45558) Treatment Minutes: 8 1 unit Skilled Intervention(s): [...] Suzan decreased;Step length decreased;Non-functio nal gait speed JH-HLM: 7: Walk 25 feet or more [...] DATE: August 25, 2019 TIME: 1:57 PM [facility] CASE MANAGEMon 08-24-2019 CASE MANAGEM HNO ID: [id number] Author: Barbara GusamnRn) AGUSTO Roque Service: Care Management Author Type: Registered Nurse Type: Care Mgt Progress Note Filed: 08/24/2019 3:52 PM Note Text: CARE MANAGEMENT PROGRESS NOTE SERVICE DATE: 08/24/2019 SERVICE TIME: 3:42 PM LOS: 4 days Needs Prior to Discharge: Discharge Transportation [facility] has accepted pt and he is ready to D/C when medically stable. Will need W/C transport. ADDENDUM: Notified pt's sister, Amalia of D/C plan. SIGNATURE: Barbara Roque RN PATIENT NAME: Elias Shah DATE: August 24, 2019 TIME: 3:42 PM PAGER/CONTACT #: [phone] [facility] CASE MANAGEM HNO ID: [id number] Author: Barbara GusmanRn) Jude RN Service: Care Management Author Type: Registered Nurse Type: Care Mgt Progress Note Filed: 08/24/2019 1:01 PM Note Text: CARE MANAGEMENT PROGRESS NOTE SERVICE DATE: 08/24/2019 SERVICE TIME: 12:59 PM LOS: 4 days FREEDOM OF CHOICE GIVEN: Yes Pt does not think he can do 3 hrs of intensive therapy at Rehab. Preference: Would like to go to [facility]. [place]. Referral placed. SIGNATURE: Barbara Roque RN PATIENT NAME: Elias Yen Leonid DATE: August 24, 2019 TIME: 12:58 PM PAGER/CONTACT #: [phone] [facility] CASE MANAGEM HNO ID: [id number] Author: Barbara Shaikh) Jude RN Service: Care Management Author Type: Registered Nurse Type: Care Mgt Progress Note Filed: 08/24/2019 12:58 PM Note Text: CARE MANAGEMENT PROGRESS NOTE SERVICE DATE: 08/24/2019 SERVICE TIME: 10:34 AM LOS: 4 days FREEDOM OF CHOICE GIVEN: Yes Met with pt, PT/OT rec Acute Rehab. Pt is from [place] and wants to stay in the area Preference: [place] [facility] Referral placed. Pt would like CM to let his sister, Amalia know and she will be hame after 1 PM today. Pt will need transport at D/C, as sister does not drive long distance nor on the freeway. SIGNATURE: Barbara Roque RN PATIENT NAME: Elias Yen Leonid DATE: August 24, 2019 TIME: 10:34 AM PAGER/CONTACT #: [phone] [facility] CONSULT PROGon 08-24-2019 CONSULT PROG HNO ID: [id number] Author: Zacarias Miles Service: Gastroenterology Author Type: [...] for about a week). SIGNATURE: Zacarias Miles APRN.LAVENDER FARM WORKER PATIENT NAME: Elias Shah DATE: August 24, 2019 TIME: 2:10 PM NUMBER: [phone] [facility] PROGRESSon 08-24-2019 PROGRESS HNO ID: [id number] Author: Ben Peñaloza Service: Hospital Medicine Author [...] mg ORAL DAILY 08/23/19 1543 -- 08/24/19 0933 activity - mobilize patient (nm,oh) 08/20/19 1615 vte pharmacologic prophylaxis contraindicated (nm,oh) 08/20/19 1615 pneumatic compression stockings (nm,nc) VTE Prophylaxis: VTE prophylaxis appropriate SIGNATURE: Ben Peñaloza MD PATIENT NAME: Elias Shah DATE: 08/24/2019 TIME: 3:39 PM PAGER: [phone] [facility] THERAPY NTon 08-24-2019 THERAPY NT HNO ID: [id number] Author: Chloe (Otr/Carleen Asher Service: Occupational Therapy Author Type: Occupational Therapist Type: Therapy (PT/OT/Speech/Resp) Filed: 08/24/2019 11:16 AM Note Text: Occupational Therapy Evaluation SERVICE DATE: 08/24/2019 SERVICE TIME: 954 to 1022 ROOM: [place] [address] Recommended Discharge Disposition: Acute Rehab Recommended Discharge [...] Cognitive Functions and Awareness Interventions Provided: Evaluation;Self Detention Management (48208) $ Evaluation-Moderate (51744) Billed Units: 1 unit OT Evaluation Moderate [...] valve replacement, h/o encephalopathy, anemia, HTN. Self Detention Management (78898) Treatment Minutes: 13 1 unit Skilled Intervention(s): [...] mm [facility]. Cristhian Trifecta pericardial prosthesis at [facility] by Dr. Rivers - Essential hypertension - [...] August 24, 2019 TIME: 10:46 AM [facility] THERAPY NT HNO ID: [id number] Author: Nohemi (Pt) Shefali Service: Physical Therapy Author Type: Physical Therapist Type: Therapy (PT/OT/Speech/Resp) Filed: 08/24/2019 4:03 PM Note Text: Physical Therapy Evaluation SERVICE DATE: 08/24/2019 SERVICE TIME: 0830 to 0855 ROOM: [place] [address] Recommended Discharge Disposition: Acute Rehab Justification For [...] and mobility-other Interventions Provided: Evaluation;Therapeuti c Activity (00310) $ Evaluation-Moderate (89852) Billed Units: 1 unit History and examination of body systems see assessment section above. This patient?s clinical presentation is evolving. The patient required a moderate complexity evaluation. Therapeutic Activity (25149) Treatment Minutes: 9 1 unit Skilled Intervention(s): [...] DATE: August 24, 2019 TIME: 4:01 PM [facility] ANES Namita 08-23-2019 ANES POST HNO ID: [id number] Author: Alli Lamb Service: Anesthesiology Author Type: Physician Type: Anesthesia PostOp Filed: 08/23/2019 12:36 PM Note Text: POST ANESTHESIA EVALUATION NOTE SERVICE DATE: 08/23/2019 SERVICE TIME: 123 : 1938 Vitals: 08/22/19202308/23/19 0255 08/23/19 0812 08/23/19 1021 Temp: 36.7 [...] 2019 TIME: 12:36 PM PAGER/CONTACT #: [facility] ANES PREOPon 08-23-2019 ANES PREOP HNO ID: [id number] Author: Alli Lamb Service: Anesthesiology Author Type: [...] Atrial Fibrillation With Rapid Ventricular Response (Hcc) Muaro (Acute Kidney Injury) (Hcc) Acute Metabolic Encephalopathy Vitamin D Deficiency Small Bowel Obstruction (Hcc) Paroxysmal Atrial Fibrillation (Hcc) Lbbb (Left Bundle Branch Block) Incarcerated Umbilical Hernia Declining Functional Status Essential Hypertension Hyperlipidemia Impaired Cognition Aortic Stenosis S/P Cabg X 2 Acute Encephalopathy Coronary Artery Disease of [place] Artery of [place] Heart With Stable Angina Pectoris (Hcc) S/P [...] mm St. Cristhian Trifecta pericardial prosthesis at [facility] by Dr. 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 Rivers - Vitamin D deficiency PAST SURGICAL HISTORY Procedure Laterality Date - ATRIAL APPENDAGE LIGATION 07/04/2019 35 mm AtriCure clip at [facility] by Dr. Rivers - CABG (2) VEIN GRAFTS AND ARTERIAL GRAFT(S 07/04/2019 at [facility] by Dr. Rivers - REPAIR UMBILICAL HERNIA 12/04/2018 after bowel perforation done at [facility] Dr. Young - REPLAC AORT VALV PROSTH VALV 07/04/[address] Cristhian Trifecta pericardial prosthesis at [facility] by Dr. Rivers FAMILY HISTORY Problem Relation [...] BID Aijaz Brittani 25 mg at 08/22/19 214 - [MAR Hold due to Transfer] tamsulosin [...] (PROTONIX) 40 mg INTRAVENOUS q 12 H Zora Brittani 40 mg at 08/23/19816 Followed by - [MAR Hold due to Transfer] pantoprazole 40 mg injection (PROTONIX) 40 mg INTRAVENOUS DAILY (6 AM) Zora Brittani Allergies: ALLERGIES No Known Allergies DOS [...] August 23, 2019 TIME: 11:36 AM CSN: [id number] [facility]: [id number] Author: Barbara (Rn) AGUSTO Roque Service: Care [...] Current Advance Directive: Health Care Power of Advocacy Director In Chart: No Environmental Emergencies Assistant Attempted to Assist with AD Completion: Yes [...] Walker Has the Patient Been in a Nursing Home Facility in the Past 30 days? Unknown SOCIAL: Living Arrangement: Home Lives With: Amalia mccormack Financial Resources: Retired Primary Contact: Extended Emergency Contact Information Primary Emergency Contact: Amalia Zamora [place] Relation: Sister Supportive: Yes Other Important Patient [...] 0 I feel financially burdened by my [id number] expenses for my prescription medication: Disagree completely [...] 23, 2019 TIME: 4:20 PM PAGER/CONTACT #: [phone] [facility] OPERATIVE NOon 08-23-2019 OPERATIVE NO HNO ID: [id number] Author: Zora Peter Service: Gastroenterology Author Type: Physician Type: Operative Report Filed: 08/23/2019 12:03 PM Note Text: OPERATIVE/PROCEDURE REPORT LOG ID: [id number] Surgery/Procedure Date: 08/23/2019 Incision/Procedure Start Time: 11:43 AM Incision Close/Procedure End Time: 11:58 AM Surgeon(s)/Procedural ist(s) and Truck Manager(s): Surgeon(s) and Role: * Zora Peter - [...] 23, 2019 TIME: 12:00 PM PAGER/CONTACT #: [phone] [facility] OPERATIVE NO HNO ID: [id number] Author: Zora Peter Service: Gastroenterology Author Type: Physician Type: Operative Report Filed: 08/23/2019 12:02 PM Note Text: OPERATIVE/PROCEDURE REPORT LOG ID: [id number] Surgery/Procedure Date: 08/23/2019 Incision/Procedure Start Time: 11:43 AM Incision Close/Procedure End Time: 11:58 AM Surgeon(s)/Procedural ist(s) and Truck Manager(s): Surgeon(s) and Role: * Zora Peter - [...] 23, 2019 TIME: 12:00 PM PAGER/CONTACT #: [phone] [facility] PROGRESSon 08-23-2019 PROGRESS HNO ID: [id number] Author: Roger Castillo Service: Hospital Medicine Author Type: Physician Type: Progress Notes Filed: 08/23/2019 3:44 PM Note Text: DEPARTMENT OF HOSPITAL MEDICINE PROGRESS NOTE SERVICE DATE: 08/23/2019 SERVICE TIME: 3:37 PM Hospital Medicine/Primary Attending: Roger Castillo MD NIGHT AND WEEKEND COVERAGE: After 7pm please page [phone] CHIEF COMPLAINT: Shortness of breath SUBJECTIVE: Patient [...] PT EDon 08-23-2019 PT ED HNO ID: [id number] Author: Nichole Boo RN Service: Nursing Author [...] Signed By: Nichole Boo RN In Department: [facility] hospital PT ED HNO ID: [id number] Author: Ina Ryan RN Service: Nursing Author [...] Signed By: Ina Ryan RN In Department: Critical access hospital ANES Namita 08-22-2019 ANES POST HNO ID: [id number] Author: Marlon Womack Service: Anesthesiology Author Type: [...] ANES PREOPon 08-22-2019 ANES PREOP HNO ID: [id number] Author: Marlon Womack Service: Anesthesiology Author Type: [...] 2 Acute Encephalopathy Coronary Artery Disease of [place] Artery of [place] Heart With Stable Angina Pectoris (Hcc) S/P [...] mm St. Cristhian Trifecta pericardial prosthesis at [facility] by Dr. 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 Rivers - Vitamin D deficiency PAST SURGICAL HISTORY Procedure Laterality Date - ATRIAL APPENDAGE LIGATION 07/04/2019 35 mm AtriCure clip at [facility] by Dr. Rivers - CABG (2) VEIN GRAFTS AND ARTERIAL GRAFT(S 07/04/2019 at [facility] by Dr. Rivers - REPAIR UMBILICAL HERNIA 12/04/2018 after bowel perforation done at [facility] Dr. Young - REPLAC AORT VALV PROSTH VALV 07/04/[address] Cristhian Trifecta pericardial prosthesis at [facility] by Dr. Rivers FAMILY HISTORY Problem Relation [...] Frequency Provider Last Rate Last Dose - [JAN Hold due to Transfer] morphine [...] (LIPITOR) 40 mg ORAL AT BEDTIME Dunia [place] 40 mg at 08/21/192003 - [JAN Hold due to Transfer] losartan 50 mg tab(s) (COZAAR) 50 mg ORAL BID Dunia Ty 50 mg at 08/22/19 0840 - [MAR Hold due to Transfer] metoprolol tartrate (short acting) 25 mg tab(s) (LOPRESSOR) 25 mg ORAL BID Dunia Ty 25 mg at 08/21/192003 - [MAR Hold due to Transfer] tamsulosin ER 0.4 mg cap(s) (FLOMAX) 0.4 mg ORAL DAILY Dunia [place] 0.4 mg at 08/21/19 0953 - [MAR Hold due to Transfer] NaCl 0.9% 3-5 mL 3-5 mL INTRAVENOUS q 12 H Dunia [place] 3 mL at 08/22/19 0840 - [MAR Hold due to Transfer] NaCl 0.9% 2-10 mL 2-10 mL INTRAVENOUS q 12 H Dunia [place] 10 mL at 08/22/19 0900 - [MAR Hold due to Transfer] pantoprazole 40 mg injection (PROTONIX) 40 mg INTRAVENOUS q 12 H Dunia [place] 40 mg at 08/22/19 0843 Followed by [...] August 22, 2019 TIME: 12:40 PM CSN: [id number] [facility] CASE MANAGEMon 08-22-2019 CASE MANAGEM HNO ID: [id number] Author: Barbara Roque RN Service: Care Management [...] 22, 2019 TIME: 2:29 PM PAGER/CONTACT #: [phone] [facility] CASE MANAGEM HNO ID: [id number] Author: Serene Amaya Service: Care Management Author Type: ? Type: Care Mgt Progress Note Filed: 08/22/2019 11:08 AM Note Text: CARE MANAGEMENT PROGRESS NOTE SERVICE DATE: 08/22/2019 SERVICE TIME: 1015 LOS: 2 days IM letter given to patient on [id number]. SIGNATURE: Serene Amaya PATIENT NAME: Elias Shah DATE: August 22, 2019 TIME: 11:07 AM PAGER/CONTACT #: [phone] [facility] NURSING PROGon 08-22-2019 NURSING PROG HNO ID: [id number] Author: Rica GusmanRn) Jose, RN Service: ? Author Type: Registered Nurse Type: Nursing Progress Note Filed: 08/22/2019 12:42 AM Note Text: Nursing Progress Note Patient Name: Elias Shah Patient Location: [place] [address] [address]- Daily Note: 2352: Sound text paged, BP 170/62 and HR 50, pt not symptomatic. 2354: Dr. Rubi called back ordered 50mg PO Hydralazine. Will continue to monitor. This note was completed by: Rica Garcia, AGUSTO [facility] NUTRITIONon 08-22-2019 NUTRITION HNO ID: [id number] Author: Sydnee Fisher RD (Ld) Service: Nutrition [...] 2 Acute Encephalopathy Coronary Artery Disease of [place] Artery of [place] Heart With Stable Angina Pectoris (Hcc) S/P [...] mm St. Cristhian Trifecta pericardial prosthesis at [facility] by Dr. Rivers - S/P CABG x 2 07/04/2019 at [facility] by Dr. Rivers - Vitamin D deficiency PAST SURGICAL HISTORY Procedure Laterality Date - ATRIAL APPENDAGE LIGATION 07/04/2019 35 mm AtriCure clip at [facility] by Dr. Rivers - CABG (2) VEIN GRAFTS AND ARTERIAL GRAFT(S 07/04/2019 at [facility] by Dr. Rivers - REPAIR UMBILICAL HERNIA 12/04/2018 after bowel perforation done at [facility] Dr. Young - REPLAC AORT VALV PROSTH VALV 07/04/[address] Cristhian Trifecta pericardial prosthesis at [facility] by Dr. Rivers Social History Socioeconomic History [...] file Gets together: Not on file Attends latter-day service: Not on file Active member of [...] oz) 04/13/19 : 88.9 kg (196 lb) [place] Body Weight: 80.9kg Resting Metabolic Rate: 1650 Estimated kilocalorie needs: 6799-4204 kilocalories determined by 25-30 kcal/kg Estimated protein needs: 97-105 grams determined by 1.2-1.3 g/kg [place] weight Estimated fluid needs: 1428-6098 milliliters based on 1 mL per kcal [...] 99% BMI 26.97 kg/m? Recent Labs 08/22/19 0608/21/19 0318 GLUC 91 -- 92 BUN 21* [...] mg INTRAVENOUS q 12 H Date 08/21/19 0700 - 08/22/19 0659 08/22/19 07 - 08/23/19 0659 Shift 7440-8596 9653-6310 2896-9183 24 Hour Total 7057-3488 2273-3577 1579-5727 24 Hour Total INTAKE PO 718 475 5555 PO 207 558 3225 Shift Total 989 283 7383 OUTPUT Urine 200 1545 1745 Void (ml) [...] August 22, 2019 TIME: 12:02 PM PAGER: [phone] [facility] OPERATIVE NOon 08-22-2019 OPERATIVE NO HNO ID: [id number] Author: Zora Peter Service: Gastroenterology Author Type: Physician Type: Operative Report Filed: 08/22/2019 1:40 PM Note Text: OPERATIVE/PROCEDURE REPORT LOG ID: [id number] Surgery/Procedure Date: 08/22/2019 Incision/Procedure Start Time: 1:29 PM Incision Close/Procedure End Time: 1:33 PM Surgeon(s)/Procedural ist(s) and Truck Manager(s): Surgeon(s) and Role: * Zora Peter - [...] 2019 TIME: 1:36 PM PAGER/CONTACT #: [facility] PROGRESSon 08-22-2019 PROGRESS HNO ID: [id number] Author: Roger Castillo Service: Hospital Medicine Author Type: Physician Type: Progress Notes Filed: 08/22/2019 2:45 PM Note Text: DEPARTMENT OF HOSPITAL MEDICINE PROGRESS NOTE SERVICE DATE: 08/22/2019 SERVICE TIME: 8:34 AM Hospital Medicine/Primary Attending: Roger Castillo MD NIGHT AND WEEKEND COVERAGE: After 7pm please page [phone] CHIEF COMPLAINT: UGIB SUBJECTIVE: Patient has had [...] 22, 2019 TIME: 8:34 AM PAGER/CONTACT #: [phone] [facility] PT EDon 08-22-2019 PT ED HNO ID: [id number] Author: Adriane GusmanRn) Rosio, AGUSTO Service: ? Author Type: Registered Nurse Type: [...] [facility] PT ED HNO ID: [id number] Author: Sherrie GusmanRn) AGUSTO Bradshaw Service: Nursing [...] None Electronically Signed By: Sherrie Bradshaw RN [facility] CONSULTon 08-21-2019 CONSULT HNO ID: [id number] Author: Niesha Musa Service: Gastroenterology Author Type: [...] mm St. Cristhian Trifecta pericardial prosthesis at [facility] by Dr. Rivers - S/P CABG x 2 07/04/2019 at [facility] by Dr. Rivers - Vitamin D deficiency PAST SURGICAL HISTORY Procedure Laterality Date - ATRIAL APPENDAGE LIGATION 07/04/2019 35 mm AtriCure clip at [facility] by Dr. Rivers - CABG (2) VEIN GRAFTS AND ARTERIAL GRAFT(S 07/04/2019 at [facility] by Dr. Rivers - REPAIR UMBILICAL HERNIA 12/04/2018 after bowel perforation done at [facility] Dr. Young - REPLAC AORT VALV PROSTH VALV 07/04/[address] Cristhian Trifecta pericardial prosthesis at [facility] by Dr. Rivers FAMILY HISTORY Problem Relation [...] 68 18 100 % ? ? 08/20/19 195 145/64 37 ?C (98.6 ?F) Oral 83 [...] August 21, 2019 TIME: 12:18 PM PAGER: [phone] [facility] PROGRESSon 08-21-2019 PROGRESS HNO ID: [id number] Author: Roger Castillo Service: Hospital Medicine Author Type: Physician Type: Progress Notes Filed: 08/21/2019 9:06 AM Note Text: DEPARTMENT OF HOSPITAL MEDICINE PROGRESS NOTE SERVICE DATE: 08/21/2019 SERVICE TIME: 9:00 AM Hospital Medicine/Primary Attending: Roger Castillo MD NIGHT AND WEEKEND COVERAGE: After 7pm please page [phone] CHIEF COMPLAINT: Upper back pain SUBJECTIVE: Patient [...] 2019 TIME: 9:00 AM PAGER/CONTACT #: [phone] [facility] HISTORY PHYSICALon HISTORY PHYSICAL HNO ID: [id number] Author: Dunia Crawford Service: Hospital Medicine Author Type: Physician Type: HANDP Filed: 08/20/2019 8:42 PM Note Text: DEPARTMENT OF HOSPITAL MEDICINE HISTORY AND PHYSICAL EXAM SERVICE DATE: 08/20/2019 SERVICE TIME: 3:00 PM Primary Care Physician: Mal Main MD NIGHT AND WEEKEND COVERAGE: After 7pm, please call cross cover pager #[phone] Subjective CHIEF COMPLAINT: Weakness, BARDALES, melena HPI: [...] mm St. Cristhian Trifecta pericardial prosthesis at [facility] by Dr. Rivers - S/P CABG x 2 07/04/2019 at [facility] by Dr. Rivers - Vitamin D deficiency PAST SURGICAL HISTORY Procedure Laterality Date - ATRIAL APPENDAGE LIGATION 07/04/2019 35 mm AtriCure clip at [facility] by Dr. Rivers - CABG (2) VEIN GRAFTS AND ARTERIAL GRAFT(S 07/04/2019 at [facility] by Dr. Rivers - REPAIR UMBILICAL HERNIA 12/04/2018 after bowel perforation done at [facility] Dr. Young - REPLAC AORT VALV PROSTH VALV 07/04/[address] Cristhian Trifecta pericardial prosthesis at [facility] by Dr. Rivers FAMILY HISTORY Problem Relation [...] Prophylaxis: Contraindicated active bleeding Disposition: Home with [facility] Plan of care discussed with: Patient, Family/Significant Other: sister, Emergeny Room Physician and RN SIGNATURE: Dunia Crawford DO PATIENT NAME: Elias Shah DATE: August 20, 2019 TIME: 3:39 PM PAGER/CONTACT #: [phone] [facility] HOSPon 08-20-2019 HOSP Patient:Manav Shah rd K MRN: Height:6' 0(1.829 m) Weight:199 lb 1.2 [...] Acute encephalopathy [G93.40] Coronary artery disease of [place] artery of [place] heart with stable angina pectoris (HCC) [I25.118] [...] pt fell at home, was [facility] then transferred here. He was diagnosed with anemia and given blood transfusion. Pt had EGD and will need colonoscopy. CAGB x 2 done 07/04/19. Amalia just wanted this to be noted and sent to the care team here. AMA Carson, ADRYAN.LAVENDER FARM WORKER, LAVENDER FARM WORKER 08/22/2019 3:40 PM Signed Noted. Thank you. Progress Notes (): Dunia Crawford DO 08/20/2019 8:42 PM Signed DEPARTMENT OF HOSPITAL MEDICINE HISTORY AND PHYSICAL EXAM SERVICE DATE: 08/20/2019 SERVICE TIME: 3:00 PM Primary Care Physician: Mal Main MD NIGHT AND WEEKEND COVERAGE: After 7pm, please call cross cover pager #[phone] Subjective CHIEF COMPLAINT: Weakness, BARDALES, melena HPI: [...] mm St. Cristhian Trifecta pericardial prosthesis at [facility] by Dr. Rivers - S/P CABG x 2 07/04/2019 at [facility] by Dr. Rivers - Vitamin D deficiency PAST SURGICAL HISTORY Procedure Laterality Date - ATRIAL APPENDAGE LIGATION 07/04/2019 35 mm AtriCure clip at [facility] by Dr. Rivers - CABG (2) VEIN GRAFTS AND ARTERIAL GRAFT(S 07/04/2019 at [facility] by Dr. Rivers - REPAIR UMBILICAL HERNIA 12/04/2018 after bowel perforation done at [facility] Dr. Young - REPLAC AORT VALV PROSTH VALV 07/04/[address] Cristhian Trifecta pericardial prosthesis at [facility] by Dr. Rivers FAMILY HISTORY Problem Relation [...] Prophylaxis: Contraindicated active bleeding Disposition: Home with [facility] Plan of care discussed with: Patient, [...] AND WEEKEND COVERAGE: After 7pm please page [phone] CHIEF COMPLAINT: Upper back pain SUBJECTIVE: Patient [...] 21, 2019 TIME: 9:00 AM PAGER/CONTACT #: [phone] Previous Version Niesha Musa MD 08/21/2019 12:31 [...] mm [facility]. Cristhian Trifecta pericardial prosthesis at [facility] by Dr. Rivers - S/P CABG x 2 07/04/2019 at [facility] by Dr. Rivers - Vitamin D deficiency PAST SURGICAL HISTORY Procedure Laterality Date - ATRIAL APPENDAGE LIGATION 07/04/2019 35 mm AtriCure clip at [facility] by Dr. Rivers - CABG (2) VEIN GRAFTS AND ARTERIAL GRAFT(S 07/04/2019 at [facility] by Dr. Rivers - REPAIR UMBILICAL HERNIA 12/04/2018 after bowel perforation done at [facility] Dr. Young - REPLAC AORT VALV PROSTH VALV 07/04/[address] Cristhian Trifecta pericardial prosthesis at [facility] by Dr. Rivers FAMILY HISTORY Problem Relation [...] August 21, 2019 TIME: 12:18 PM PAGER: [phone] Rica Garcia RN, RN 08/22/2019 12:42 AM Signed Nursing Progress Note Patient Name: Elias Shah Patient Location: [id number]/[place]- 4123-01 Daily Note: 2352: Sound text paged, [...] AND WEEKEND COVERAGE: After 7pm please page [phone] CHIEF COMPLAINT: UGIB SUBJECTIVE: Patient has had [...] 22, 2019 TIME: 11:07 AM PAGER/CONTACT #: [phone] WILLIAM Belcher, RD 08/22/2019 12:20 PM Signed [...] 2 Acute Encephalopathy Coronary Artery Disease of [place] Artery of [place] Heart With Stable Angina Pectoris (Hcc) S/P [...] mm St. Cristhian Trifecta pericardial prosthesis at [facility] by Dr. Rivers - S/P CABG x 2 07/04/2019 at [facility] by Dr. Rivers - Vitamin D deficiency PAST SURGICAL HISTORY Procedure Laterality Date - ATRIAL APPENDAGE LIGATION 07/04/2019 35 mm AtriCure clip at [facility] by Dr. Rivers - CABG (2) VEIN GRAFTS AND ARTERIAL GRAFT(S 07/04/2019 at [facility] by Dr. Rivers - REPAIR UMBILICAL HERNIA 12/04/2018 after bowel perforation done at [facility] Dr. Young - REPLAC AORT VALV PROSTH VALV 07/04/[address] Cristhian Trifecta pericardial prosthesis at [facility] by Dr. Rivers Social History Socioeconomic History [...] file Gets together: Not on file Attends latter-day service: Not on file Active member of [...] oz) 04/13/19 : 88.9 kg (196 lb) [place] Body Weight: 80.9kg Resting Metabolic Rate: 1650 Estimated kilocalorie needs: 6909-1182 kilocalories determined by 25-30 kcal/kg Estimated protein needs: 97-105 grams determined by 1.2-1.3 g/kg [place] weight Estimated fluid needs: 3893-4438 milliliters based on 1 mL per kcal [...] - 08/22/1965808/22/19 07 - 08/23/19 0659 Shift 5404-4811 5681-6179 3416-7383 24 Hour Total 8316-1678 3537-2068 4971-9837 24 Hour Total INTAKE PO 630 056 9664 PO 727 904 4589 Shift Total 117 751 3963 OUTPUT Urine 200 1545 1745 Void (ml) [...] August 22, 2019 TIME: 12:02 PM PAGER: [phone] Marlon Womack MD 08/22/2019 12:43 PM Signed [...] 2 Acute Encephalopathy Coronary Artery Disease of [place] Artery of [place] Heart With Stable Angina Pectoris (Hcc) S/P [...] mm St. Cristhian Trifecta pericardial prosthesis at [facility] by Dr. 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 Rivers - Vitamin D deficiency PAST SURGICAL HISTORY Procedure Laterality Date - ATRIAL APPENDAGE LIGATION 07/04/2019 35 mm AtriCure clip at [facility] by Dr. Rivers - CABG (2) VEIN GRAFTS AND ARTERIAL GRAFT(S 07/04/2019 at [facility] by Dr. Rivers - REPAIR UMBILICAL HERNIA 12/04/2018 after bowel perforation done at [facility] Dr. Young - REPLAC AORT VALV PROSTH VALV 07/04/[address] Cristhian Trifecta pericardial prosthesis at [facility] by Dr. Rivers FAMILY HISTORY Problem Relation [...] (LIPITOR) 40 mg ORAL AT BEDTIME Dunia [place] 40 mg at 08/21/192003 - [MAR Hold due to Transfer] losartan 50 mg tab(s) (COZAAR) 50 mg ORAL BID Dunia [place] 50 mg at 08/22/19 0840 - [MAR Hold due to Transfer] metoprolol tartrate (short acting) 25 mg tab(s) (LOPRESSOR) 25 mg ORAL BID Dunia [place] 25 mg at 08/21/192003 - [MAR Hold due to Transfer] tamsulosin ER 0.4 mg cap(s) (FLOMAX) 0.4 mg ORAL DAILY Dunia [place] 0.4 mg at 08/21/19 0953 - [MAR Hold due to Transfer] NaCl 0.9% 3-5 mL 3-5 mL INTRAVENOUS q 12 H Dunia [place] 3 mL at 08/22/19 0840 - [MAR Hold due to Transfer] NaCl 0.9% 2-10 mL 2-10 mL INTRAVENOUS q 12 H Dunia [place] 10 mL at 08/22/19 0900 - [MAR Hold due to Transfer] pantoprazole 40 mg injection (PROTONIX) 40 mg INTRAVENOUS q 12 H Dunia [place] 40 mg at 08/22/19 0843 Followed by - [MAR Hold due to Transfer] pantoprazole 40 mg injection (PROTONIX) 40 mg INTRAVENOUS DAILY (6 AM) Dunia Ty Allergies: ALLERGIES No Known Allergies DOS EXAM: [...] August 22, 2019 TIME: 12:40 PM CSN: [id number] Sherrie Bradshaw RN, RN 08/22/2019 1:19 PM [...] 1:40 PM Signed OPERATIVE/PROCEDURE REPORT LOG ID: [id number] Surgery/Procedure Date: 08/22/2019 Incision/Procedure Start Time: 1:29 PM Incision Close/Procedure End Time: 1:33 PM Surgeon(s)/Procedural ist(s) and Truck Manager(s): Surgeon(s) and Role: * Zora Peter - [...] 22, 2019 TIME: 2:29 PM PAGER/CONTACT #: [phone] Adriane Avelar RN, RN 08/22/2019 2:48 PM [...] 141/63 178/75 08/22/19 1313 08/22/19 1354 08/22/19 14308/22/19 1616 Pulse: 64 64 (!) 53 64 08/22/19 1313 08/22/19 1354 08/22/19 14308/22/19 1616 Resp: 16 18 16 18 08/22/19131208/22/19 13508/22/19 14308/22/19 1616 SpO2: 100% 98% 97% 98% [...] Signed By: Ina Ryan RN In [facility]: [facility] Nii 08-12-2019 CNOV Office Visit (AGVASACC) ELIAS SHAH ([id number]) 1940 M Date Time Provider Department 08/12/19 [...] Clip performed on 07/04/[address] Manuel sheriff. His post-operative course was complicated by atrial fibrillation with RVR (present prior to surgery), acute on chronic kidney disease, acute on chronic anemia, hematuria, acute encephalopathy. He was discharged [facility] on 07/13/2019. while recovering in acute [...] Dr Ann 08/18 Cardiac Rehab: TBD at [facility] Subjective: Current Outpatient Medications: metoprolol tartrate, short [...] RELIEF) 50 mcg/actuation nasal spray Use 1 [place] in each nostril once daily. Cholecalciferol, Vitamin [...] mm St. Cristhian Trifecta pericardial prosthesis at [facility] by Dr. Rivers - S/P CABG x 2 07/04/2019 at [facility] by Dr. Rivers - Vitamin D deficiency PAST SURGICAL HISTORY Procedure Laterality Date - ATRIAL APPENDAGE LIGATION 07/04/2019 35 mm AtriCure clip at [facility] by Dr. Rivers - CABG (2) VEIN GRAFTS AND ARTERIAL GRAFT(S 07/04/2019 at [facility] by Dr. Rivers - REPAIR UMBILICAL HERNIA 12/04/2018 after bowel perforation done at [facility] Dr. Young - REPLAC AORT VALV PROSTH VALV 07/04/[address] Cristhian Trifecta pericardial prosthesis at [facility] by Dr. Rivers FAMILY HISTORY Problem Relation [...] mg BID -Stop amiodarone -Will defer to core shaper top Dr. Ann for further management 4. MAURO [...] on. he should follow up with his core shaper top and PCP as scheduled, and should follow-up [...] help with this. - Please see your core shaper top regularly. They will take over medication management. [...] the morning Miralax for constipation Others all dmma-evx-qsvuxxj Take if you think you need them Miralax for constipation Ferrous polysaccharide - anemia -STOP Robitussin DM syrup -cough Vitamin D - Pro biotic flonase Thank you for coming to see me today!! Higinio Bacon, FLATTENING MACHINE OPERATOR.LAVENDER FARM WORKER Referring Provider: SELF [200] Allergies As of Date: 08/12/2019 (No Known Allergies) Date Reviewed: 08/12/2019 Reviewed by: Brook Andersen) Zahra - Fully [...] 60 tabletRfl: 5 XR CHEST 2V FRONTAL/LAT [[id number]] Order #: [id number] FUTURE Blood Pressure Monitor kitMonitor heart rate [...] [G93.40] INVALID FOR* Coronary artery disease of [place] artery of betty*INVALID FOR* Other instructions from [...] help with this. - Please see your core shaper top regularly. They will take over medication management. [...] the morning Miralax for constipation Others all bwox-sho-svabebp Take if you think you need them Miralax for constipation Ferrous polysaccharide - anemia -STOP Robitussin DM syrup -cough Vitamin D - Pro biotic flonase Thank you for coming to see me today!! Higinio Bacon, ADRYAN.LAVENDER FARM WORKER Prescriptions ordered this encounter Disp Refills Start [...] Med Route: EACH NOSTRIL Sig: Use 1 [place] in each nostril once daily. Disc: Course [...] [facility] Center PROGRESSon 08-12-2019 PROGRESS HNO ID: [id number] Author: Higinio Medina) KEE Bacon Service: ? [...] Clip performed on 07/04/[address] Manuel sheriff. His post-operative course was complicated by atrial [...] Dr Ann 08/18 Cardiac Rehab: TBD at [facility] Subjective: Current Outpatient Medications: metoprolol tartrate, short [...] RELIEF) 50 mcg/actuation nasal spray Use 1 [place] in each nostril once daily. Cholecalciferol, Vitamin [...] mm St. Cristhian Trifecta pericardial prosthesis at [facility] by Dr. Rivers - S/P CABG x 2 07/04/2019 at [facility] by Dr. Rivers - Vitamin D deficiency PAST SURGICAL HISTORY Procedure Laterality Date - ATRIAL APPENDAGE LIGATION 07/04/2019 35 mm AtriCure clip at [facility] by Dr. Rivers - CABG (2) VEIN GRAFTS AND ARTERIAL GRAFT(S 07/04/2019 at [facility] by Dr. Rivers - REPAIR UMBILICAL HERNIA 12/04/2018 after bowel perforation done at [facility] Dr. Young - REPLAC AORT VALV PROSTH VALV 07/04/[address] Cristhian Trifecta pericardial prosthesis at [facility] by Dr. Rivers FAMILY HISTORY Problem Relation [...] mg BID -Stop amiodarone -Will defer to core shaper top Dr. Ann for further management 4. MAURO (acute kidney injury) (HCC) - ICD9: 584.9, ICD10: N17.9 -SCR 08/04/19 at [facility] 1.20 (1.13-1.18 preop) -Stable 5. Debility - ICD9: 799.3, ICD10: R53.81 - Patient is seen in wheelchair again today, - Home with walker, but occasionally without. - Increase ambulation as much as tolerated 6. Anemia, unspecified type - ICD9: 285.9, ICD10: D64.9 Last H/H 08/22 improved since discharge Higinio Bacon, FLATTENING MACHINE OPERATOR.LAVENDER FARM WORKER In summary, Patient is doing improved overall after his CABG/AVR surgery, with no major complaints. Patient is released to drive, work. Patient should start cardiac rehab from this point on. he should follow up with his core shaper top and PCP as scheduled, and should follow-up with us in 1 month with CXR before. Thanks. Electronically signed by Higinio Bacon APRN.CNP on August 12, 2019, 1:36 PM [facility] CNOVon 07-28-2019 CNOV Office Visit (AGVASACC) ELIAS SHAH ([id number]) 1940 M Date Time Provider Department 07/28/19 3:00 PM HIGINIO BACON (KEE) AGVASARTI During your visit today, we recorded the following information about you: Pulse Respiration Blood pressure Weight 82/minute 18/minute 128/70 93.4 kg Height 1.829 m Higinio Bacon APRN.KEE OTERO 07/29/2019 9:15 AM Signed HPI: Elias Shah [...] Clip performed on 07/04/[address] Manuel sheriff. His post-operative course was complicated by atrial fibrillation with RVR (present prior to surgery), acute on chronic kidney disease, acute on chronic anemia, hematuria, acute encephalopathy. He was discharged [facility] on 07/13/2019. In the intervening week [...] RELIEF) 50 mcg/actuation nasal spray Use 1 [place] in each nostril once daily. Cholecalciferol, Vitamin [...] mm St. Cristhian Trifecta pericardial prosthesis at [facility] by Dr. Rivers - S/P CABG x 2 07/04/2019 at [facility] by Dr. Rivers - Vitamin D deficiency PAST SURGICAL HISTORY Procedure Laterality Date - ATRIAL APPENDAGE LIGATION 07/04/2019 35 mm AtriCure clip at [facility] by Dr. Rivers - CABG (2) VEIN GRAFTS AND ARTERIAL GRAFT(S 07/04/2019 at [facility] by Dr. Rivers - REPAIR UMBILICAL HERNIA 12/04/2018 after bowel perforation done at [facility] Dr. Young - REPLAC AORT VALV PROSTH VALV 07/04/[address] Cristhian Trifecta pericardial prosthesis at [facility] by Dr. Rivers FAMILY HISTORY Problem Relation [...] (patient is receiving only 81 mg at [facility]), atorvastatin 40 mg daily, increase metoprolol to 50 mg 3 times a day - CARDIAC REHAB II OUTPT ([place], [place]) -4-6 weeks once recovered from surgery and f/u with Dr Ann - XR CHEST 2V FRONTAL/LAT -for next visit scheduled in 2 weeks 2. S/P CABG x 2 - ICD9: V45.81, ICD10: Z95.1 -As above - CARDIAC REHAB II OUTPT ([place], [place]) - XR CHEST 2V FRONTAL/LAT 3. [...] ICD9: 799.3, ICD10: R53.81 -Increase ambulation at [facility] -Patient to ambulate with walker independently to prepare for home-going scheduled 08/05/2019 7. Pneumonia due to organism - ICD9: 486, ICD10: J18.9 -On vancomycin and cefepime for presumed pneumonia -Request x-ray image from 07/27/2019 from [facility] -Patient with normal O2 saturation at rest and post ambulatory. -Wean O2 prior to discharge. Higinio Bacon APRN.LAVENDER FARM WORKER In summary, Elias Shah is doing better overall after his combined CABG aVR surgery, with no major complaints. he should follow-up in this office in 2 weeks with Chest X-ray. Thanks. Electronically signed by Higinio Bacon APRN.LAVENDER FARM WORKER on July 28, 2019, 12:54 PM Higinio Bacon APRN.KEE OTERO 07/28/2019 4:42 PM Addendum -Please follow-up with your primary care physician and your core shaper top in 4-6 weeks -Please return to cardiac surgery in 3-4 weeks with a chest x-ray done before the appointment -Restriction remain: No lifting more than 10 lbs and No driving. -Cardiac rehab has been consulted. You will be able to begin cardiac rehab after your next visit with us. [facility]: . Recommendations: 1. Increase ASA to [...] coming to see me today! Higinio Bacon APRN.KEE Referring Provider: SELF [200] Allergies As of [...] to organism [J18.9] Order(s):CARDIAC REHAB II OUTPT (IN,DC) [[id number]] Order #: [id number]: 1 XR CHEST 2V FRONTAL/LAT [[id number]] Order #: [id number] FUTURE metoprolol tartrate, short acting, (LOPRESSOR) 25 [...] FLONASE ALLERGY RELIEF 50 MCG* Use 1 [place] in each nostril o* METOPROLOL TARTRATE 25 [...] [G93.40] INVALID FOR* Coronary artery disease of [place] artery of betty*INVALID FOR* Other instructions from your clinician: -Please follow-up with your primary care physician and your core shaper top in 4-6 weeks -Please return to cardiac surgery in 3-4 weeks with a chest x-ray done before the appointment -Restriction remain: No lifting more than 10 lbs and No driving. -Cardiac rehab has been consulted. You will be able to begin cardiac rehab after your next visit with us. [facility]: . Recommendations: 1. Increase ASA to [...] for coming to see me today! Higinio Bacon, FLATTENING MACHINE OPERATOR.LAVENDER FARM WORKER Prescriptions ordered this encounter Disp Refills Start [...] Medical Center PROGRESSon 07-28-2019 PROGRESS HNO ID: [id number] Author: Higinio (Kee) KEE Bacon Service: ? [...] Clip performed on 07/04/[address] Manuel sheriff. His post-operative course was complicated by atrial [...] RELIEF) 50 mcg/actuation nasal spray Use 1 [place] in each nostril once daily. Cholecalciferol, Vitamin [...] mm St. Cristhian Trifecta pericardial prosthesis at [facility] by Dr. Rivers - S/P CABG x 2 07/04/2019 at [facility] by Dr. Rivers - Vitamin D deficiency PAST SURGICAL HISTORY Procedure Laterality Date - ATRIAL APPENDAGE LIGATION 07/04/2019 35 mm AtriCure clip at [facility] by Dr. Rivers - CABG (2) VEIN GRAFTS AND ARTERIAL GRAFT(S 07/04/2019 at [facility] by Dr. Rivers - REPAIR UMBILICAL HERNIA 12/04/2018 after bowel perforation done at [facility] Dr. Young - REPLAC AORT VALV PROSTH VALV 07/04/[address] Cristhian Trifecta pericardial prosthesis at [facility] by Dr. Rivers FAMILY HISTORY Problem Relation [...] (patient is receiving only 81 mg at [facility]), atorvastatin 40 mg daily, increase metoprolol to 50 mg 3 times a day - CARDIAC REHAB II OUTPT ([place], [place]) -4-6 weeks once recovered from surgery and f/u with Dr Ann - XR CHEST 2V FRONTAL/LAT -for next visit scheduled in 2 weeks 2. S/P CABG x 2 - ICD9: V45.81, ICD10: Z95.1 -As above - CARDIAC REHAB II OUTPT ([place], [place]) - XR CHEST 2V FRONTAL/LAT 3. [...] ICD9: 799.3, ICD10: R53.81 -Increase ambulation at [facility] -Patient to ambulate with walker independently to prepare for home-going scheduled 08/05/2019 7. Pneumonia due to organism - ICD9: 486, ICD10: J18.9 -On vancomycin and cefepime for presumed pneumonia -Request x-ray image from 07/27/2019 from [facility] -Patient with normal O2 saturation at rest and post ambulatory. -Wean O2 prior to discharge. Higinio Bacon APRN.LAVENDER FARM WORKER In summary, Elias Shah is doing better overall after his combined CABG aVR surgery, with no major complaints. he should follow-up in this office in 2 weeks with Chest X-ray. Thanks. Electronically signed by Higinio Bacon APRN.KEE on July 28, 2019, 12:54 PM [facility] 07-21-2019 KEEN Telephone (JAZMYNE) ELIAS SHAH ([id number]) 1940 M Date Time Provider Department 07/21/19 WAYNE RIVERS During your visit today, we recorded the following information about you: Brook Sweeney LPN 07/21/2019 2:45 PM Signed Janee sheriff nurse at [facility], transitional care unit calls with concern of [...] new orders please call her directly # [phone]. If desired an EKG can be done at that facility. AMA Carson APRN.KEE, KEE 07/21/2019 4:17 PM Signed Return phone call to Janee at [facility]. She reports that Mr. Carreno heart [...] FLONASE ALLERGY RELIEF 50 MCG* Use 1 [place] in each nostril o* CHOLECALCIFEROL (VITAMIN D3) [...] [G93.40] INVALID FOR* Coronary artery disease of [place] artery of betty*INVALID FOR* Prescriptions ordered this [...] CASE MANAGEMon 07-13-2019 CASE MANAGEM HNO ID: [id number] Author: Greg (Rn) AGUSTO Naqvi Service: Care Management Author Type: Registered Nurse Type: Care Mgt Progress Note Filed: 07/13/2019 1:55 PM Note Text: CARE MANAGEMENT PROGRESS NOTE SERVICE DATE: 07/13/2019 SERVICE TIME: 1352 LOS: 9 days Received call from [facility], they can accept pt in skilled unit. They were updated on pick pulling machine operator time. Orders will be faxed as soon as PA finalizes. left for pts sister Amalia at pt request. SIGNATURE: Greg Naqvi RN PATIENT NAME: Elias Shah DATE: July 13, 2019 TIME: 1:52 PM PAGER/CONTACT #: [phone] [facility] CASE MANAGEM HNO ID: [id number] Author: Greg GusmanRn) AGUSTO Naqvi Service: Care Management Author Type: Registered Nurse Type: Care Mgt Progress Note Filed: 07/13/2019 1:43 PM Note Text: CARE MANAGEMENT PROGRESS NOTE SERVICE DATE: 07/13/2019 SERVICE TIME: 1324 LOS: 9 days Multiple calls attempted to [facility] to see if they can accept pt. No answer was given in [employer] yesterday and [employer] is down today. Finally received callback from Nancy at [facility], she still feels pt is more appropriate for skilled and not acute rehab, states that the pt is 79 and he had a CABG. I did explain that the pt has been ambulating in the unit with minimal assist multiple times per day and PT/OT rec acute rehab. Facility requesting latest PT/OT to be faxed. Evals from 07/11 were faxed to [phone]. Await response. Pt is agreeable to go skilled if pt will not take for acute rehab. Anticipate dc later today. Ambulette set up fpr 4 pm. Still waiting on final acceptance from [facility]. SIGNATURE: Greg Naqvi RN PATIENT NAME: Elias Shah DATE: July 13, 2019 TIME: 1:24 PM PAGER/CONTACT #: [phone] [facility] 07-13-2019 [facility] Telephone ([facility]) LEONIDELIAS ([id number]) 1940 M Date Time Provider Department 07/13/19 MARLON MILLAN) [facility] During your visit today, we recorded the following information about you: Marlon Millan PA-C 07/13/2019 4:09 PM Signed Please schedule follow up appointment in 1 week s/p AVR/ CABG/ left atrial appendage clip. Thanks! 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 Patient is now s/p AVR. TELEMETRY/harp repairer: Atrial fib in 80s, IVCD, occasional multiformed [...] Acute encephalopathy (07/09/2019) Coronary artery disease of [place] artery of [place] heart with stable angina pectoris (HCC) (07/09/2019) [...] heart rate AND rhythm. SIGNATURE: Salomon Roque APRN.GEOLOGIST PETROLEUM PATIENT NAME: Elias Shah DATE: July 13, 2019 TIME: 10:47 AM PAGER/CONTACT #: [phone] [facility] PLAN OF CAREon 07-13-2019 PLAN OF CARE HNO ID: [id number] Author: Fabi De La Cruz ([employer]) Service: ? Author Type: ? Type: Plan of Care Filed: 07/13/2019 3:34 PM Note Text: SUPPRESSION CREW LEADER BEDSIDE DELIVERY SURVEY 1. Patient to use [facility] Bedside Delivery - N/A Insurance Information as follows: 2. Insurance card on file - N/A 3. Credit card for payment - N/A Patient DC to SNF/acute rehab/inpatient facility, therefore not eligible for pharmacy bedside delivery service. Fabi De La Cruz ([employer]) [phone] [facility] PROGRESSon 07-13-2019 PROGRESS HNO ID: [id number] Author: Ronn Kincaid Service: Pulmonary Disease Author [...] OK with CVICU. SIGNATURE: Ronn Kincaid MD [facility] DATE of SERVICE: July 13, 2019 TIME of SERVICE: 9:20 AM [facility] PROGRESS HNO ID: [id number] Author: Jim Castro DO Service: Cardiac Surgery [...] 2019 TIME: 6:16 AM PAGER/CONTACT #: [phone] [facility] CASE MANAGEMon 07-12-2019 CASE MANAGEM HNO ID: [id number] Author: Greg (Rn) AGUSTO Naqvi Service: Care Management Author Type: Registered Nurse Type: Care Mgt Progress Note Filed: 07/12/2019 11:56 AM Note Text: CARE MANAGEMENT PROGRESS NOTE SERVICE DATE: 07/12/2019 SERVICE TIME: 1152 LOS: 8 days Received message from staff at [facility] stating they feel pt is more appropriate [...] Pt prefers acute rehab. Message sent to [facility], await response. SIGNATURE: Greg Naqvi RN PATIENT NAME: Elias Shah DATE: July 12, 2019 TIME: 11:52 AM PAGER/CONTACT #: [phone] [facility] CONSULTon 07-12-2019 CONSULT HNO ID: [id number] Author: Alvin Jose Service: Electrophysiology Author Type: [...] HERNIA 12/04/2018 after bowel perforation done at [facility] Dr. Young FAMILY HISTORY Problem Relation [...] Unknown time Yes Yes Sig: Use 1 [place] in each nostril once daily. loperamide (IMODIUM) [...] Assessment AND Plan: Coronary artery disease of [place] artery of [place] heart with stable angina pectoris (HCC) POA: Yes Assessment AND Plan: Resolved Problems: * No resolved hospital problems. * Orders reviewed and I agree with the cardiac orders. Additional orders include . SIGNATURE: Alvin Jose DO PATIENT NAME: Elias Shah DATE: July 12, 2019 TIME: 11:14 AM PAGER/CONTACT #: [phone] [facility] ECG COMPLETEon 07-12-2019 ECG COMPLETE NAME : ELIAS SHAH PID : [id number] : 1940 Gender : Male Race : ORD : [id number] Procedure Date : Jul 12 2019 09:22:34 [...] LONGER PRESENT Confirmed by MD ESCALANTE VINAYAK ([id number]) on 07/12/2019 8:58:11 PM Ventricular Rate : 119 BPM Atrial Rate : 119 BPM QRS Duration : 150 ms Q-T Interval : 396 ms QTC Calculation(Bazett) : 557 ms R [place] : -58 degrees T [place] : 114 degrees Test Reason : Arrhythmia Location : 6 : [place] [address] Overread By : MD ESCALANTE VINAYAK Edited By : MD ESCALANTE VINAYAK Referred By : WAYNE RIVERS Acquired by : MARLON MAYER [facility] NURSING PROGon 07-12-2019 NURSING PROG HNO ID: [id number] Author: Suni GusmanRn) AGUSTO Maguire Service: ? [...] resulted 165/87. Will continue to monitor [facility] NURSING PROG HNO ID: [id number] Author: Suni GusmanRn) AGUSTO Maguire Service: ? Author Type: Registered Nurse Type: Nursing Progress Note Filed: 07/12/2019 11:15 AM Note Text: Dr Cruz At bedside for EP consult [facility] NURSING PROG HNO ID: [id number] Author: Suni GusmanRn) AGUSTO Maguire Service: ? [...] possible deterioration. Will continue to monitor [facility] PROGRESSon 07-12-2019 PROGRESS HNO ID: [id number] Author: Marlon Millan (Pa) Service: Cardiovascular Surgery Author Type: Physician Truck Manager Type: Progress Notes Filed: 07/12/2019 5:32 PM [...] 12, 2019 TIME: 2:17 PM PAGER/CONTACT #: [phone] [facility] PROGRESS HNO ID: [id number] Author: Ronn Kincaid Service: Pulmonary Disease Author [...] availability for transfer. SIGNATURE: Ronn Kincaid MD [facility] DATE of SERVICE: July 12, 2019 TIME of SERVICE: 9:36 AM [facility] PROGRESS HNO ID: [id number] Author: Jim Castro DO Service: Cardiac Surgery [...] 2019 TIME: 6:13 AM PAGER/CONTACT #: [phone] [facility] ALLIED HEALTHon 07-11-2019 ALLIED HEALTH HNO ID: [id number] Author: Mal (Reimbursement Specialist) ASTRID Mendoza Service: Cardiac Rehab Author Type: [...] Rehabilitation Brochure Signature: Mal Mendoza RRT Pager: [phone] Date: July 11, 2019 Time: 3:14 PM [facility] CASE MANAGEMon 07-11-2019 CASE MANAGEM HNO ID: [id number] Author: Imelda (Rn) AGUSTO Rizvi Service: ? [...] 11, 2019 TIME: 2:43 PM PAGER/CONTACT #: [phone] [facility] NURSING PROGon 07-11-2019 NURSING PROG HNO ID: [id number] Author: Suni GusmanRn) AGUSTO Maguire Service: ? [...] above 96%. Will continue to monitor [facility] NUTRITIONon 07-11-2019 NUTRITION HNO ID: [id number] Author: Mimi Smith Service: Nutrition Therapy Author [...] July 11, 2019 TIME: 12:14 PM PAGER: [phone] [facility] NUTRITION HNO ID: [id number] Author: Yasmine Sanchez RD Service: Nutrition Therapy [...] 2 Acute Encephalopathy Coronary Artery Disease of [place] Artery of [place] Heart With Stable Angina Pectoris (Hcc) PAST [...] HERNIA 12/04/2018 after bowel perforation done at [facility] Dr. Young Nutritional Intake: <75% estimated [...] July 11, 2019 TIME: 8:46 AM PAGER: [phone] [facility] PROGRESSon 07-11-2019 PROGRESS HNO ID: [id number] Author: Marlon Millan (Pa) Service: Cardiovascular Surgery Author Type: Physician Truck Manager Type: Progress Notes Filed: 07/11/2019 2:02 PM [...] LE Lines, Drains, and Airways Line Peripheral /18/ 1100 Midline Right Antecubital 20 Gauge 1 [...] 11, 2019 TIME: 1:21 PM PAGER/CONTACT #: [phone] [facility] PROGRESS HNO ID: [id number] Author: Jim Castro DO Service: Cardiac Surgery [...] LOS: 7 INTERVAL EVENTS / PERTINENT ROS: CRAIGON. Just got back from a walk. Admits [...] 2019 TIME: 6:17 AM PAGER/CONTACT #: [phone] [facility] THERAPY NTon 07-11-2019 THERAPY NT HNO ID: [id number] Author: Chloe (Otr/L) Lb Service: Occupational Therapy Author Type: Occupational Therapist Type: Therapy (PT/OT/Speech/Resp) Filed: 07/11/2019 3:37 PM Note Text: Occupational Therapy Treatment SERVICE DATE: 07/11/2019 SERVICE TIME: 1355 to 1410 ROOM: [place] [address] Recommended Discharge Disposition: Acute Rehab Recommended Discharge [...] Cognitive Functions and Awareness Interventions Provided: Self Detention Management (24453) Self Detention Management (33203) Treatment Minutes: 15 1 unit Skilled Intervention(s): [...] commands noted. Well, you're in a hospital. [facility], if you didn't remember when asked for orientation to place. Reported pain in right shoulder at 7/10. My left one hurt too right after surgery, but it's better. I guess it's how they positioned me. Home Environment Patient Lives With: Family(sister) Assistance Available: maritime officer Entry To Home: Stairs Prior Functional Level: [...] ERIC Bales/Carroll PATIENT NAME: Elias Shah DATE: July 11, 2019 TIME: 3:21 PM [facility] THERAPY NT HNO ID: [id number] Author: Maggie Rizvi Service: Physical Therapy Author Type: Physical Therapist Type: Therapy (PT/OT/Speech/Resp) Filed: 07/11/2019 3:21 PM Note Text: Physical Therapy Treatment SERVICE DATE: 07/11/2019 SERVICE TIME: 1409 to 1420 ROOM: [id number] Recommended Discharge Disposition: Acute Rehab Recommended Discharge [...] and has been walking the the staff electronic warfare officer several times last last few days. This [...] Patient TREATMENT INTERVENTIONS: Interventions Provided: Therapeutic Activity (04314);Gait Training (50258) Therapeutic Activity (08365) Treatment Minutes: 1 0 units Skilled Intervention(s): Education with hugging the pillow to his chest and laying on his side to log roll into the bed. Required assist to lif this legs in to the bed. The patient was instructed to keep holding the pillow and roll to his back. Gait Training (91688) Treatment Minutes: 10 1 unit Skilled Intervention(s): [...] Environment Patient Lives With: Family(sister) Assistance Available: maritime officer Entry To Home: Stairs Prior Functional Level: [...] July 11, 2019 TIME: 3:15 PM [facility] THERAPY NT HNO ID: [id number] Author: Shashi (Ccc-Pc Analyst) YUKI Butt/FEEDER WORKER POWER UNIT OPERATOR Service: Speech/Swallow Author Type: Speech Language Pathologist Type: Therapy (PT/OT/Speech/Resp) Filed: 07/11/2019 12:22 PM Note Text: Speech Therapy MBSS Evaluation SERVICE DATE: 07/11/2019 SERVICE TIME: 1045 to 1100 ROOM: [id number] Nursing Recommendations: See swallow guide posted in [...] Tested: Thin Barium Liquids;Mildly Thick Barium Liquids ([place] Thick);Puree With Barium Paste;Solid With Barium Paste [...] phase Interventions Provided: Modified Barium Swallow Study (66806) $ Modified Barium Swallow Study (05116) Billed Units: 1 unit Total Treatment Time [...] for this therapy evaluation/treatment. SIGNATURE: Shashi Butt CCC-FEEDER WORKER POWER UNIT OPERATOR PATIENT NAME: Elais Shah DATE: July 11, 2019 TIME: 12:20 PM [facility] PROGRESSon 07-10-2019 PROGRESS HNO ID: [id number] Author: Wayne Rivers Service: Cardiac Surgery Author [...] 2019 TIME: 9:55 AM PAGER/CONTACT #: [phone] [facility] PROGRESS HNO ID: [id number] Author: Christopher Cook Service: Critical Care Author [...] ? SIGNATURE: Christopher Cook MD [facility] PAGER:[phone] [facility] PROGRESS HNO ID: [id number] Author: Downtime Note Service: ? Author Type: ? Type: Progress Notes Filed: 07/10/2019 3:03 AM Note Text: Epic Scheduled Downtime: 07/10/2019 1:00:00 AM to 07/10/2019 2:53:18 AM [facility] ECG COMPLETEon 07-09-2019 ECG COMPLETE NAME : ELIAS SHAH PID : [id number] : 1940 Gender : Male Race : ORD : [id number] Procedure Date : Jul 09 2019 06:15:23 [...] ANTERIOR LEADS Confirmed by MD WILKES ANUBHAV ([id number]) on 07/09/2019 12:41:59 PM Ventricular Rate : 99 BPM Atrial Rate : 100 BPM QRS Duration : 110 ms Q-T Interval : 396 ms QTC Calculation(Bazett) : 508 ms R [place] : -45 degrees T [place] : 146 degrees Test Reason : Check QT Location : 6 : [place] [address] Overread By : MD WILKES ANUBHAV Edited By : MD WILKES ANUBHAV Referred By : WAYNE RIVERS Acquired by : ANGELY LYN[facility] PROGRESSon 07-09-2019 PROGRESS HNO ID: [id number] Author: Wayne Rivers Service: Cardiac Surgery Author [...] 2019 TIME: 12:41 PM PAGER/CONTACT #: [phone] [facility] PROGRESS HNO ID: [id number] Author: Christopher Cook Service: Critical Care Author [...] minutes. SIGNATURE: Christopher Cook MD [facility] PAGER:[phone] [facility] THERAPY NTon 07-09-2019 THERAPY NT HNO ID: [id number] Author: Daria (Ccc-Pc Analyst) YUKI Mccauley/LETY Service: Speech/Swallow Author Type: Speech Language Pathologist Type: Therapy (PT/OT/Speech/Resp) Filed: 07/09/2019 8:17 AM Note Text: SPEECH THERAPY MISSED VISIT SERVICE DATE: 07/09/2019 SERVICE TIME: 816 to 816 ROOM: [place] [address] Attempted MBSS Evaluation. Patient not seen due to Other: See Comment. Aware of Modified Barium Swallow Study order. Will complete as scheduled. SIGNATURE: Daria Mccauley CCC-FEEDER WORKER POWER UNIT OPERATOR PATIENT NAME: Elias Shah DATE: July 09, 2019 TIME: 8:17 AM [facility] ALLIED HEALTHon 07-08-2019 ALLIED HEALTH HNO ID: [id number] Author: Marybeth GusmanRnSachin Park RN Service: ? Author Type: Registered Nurse Type: Allied Health Filed: 07/08/2019 11:14 AM Note Text: CARDIAC REHABILITATION PATIENT EDUCATION PROGRESS NOTE Name: Elias Shah Date of Service: 07/08/19 Time of Service: 11:11 AM Talked to pt nurse , suggested to wait till Thursday to educate about cardiac rehab, pt not appropriate at this time Signature: Marybeth Park RN Pager: [phone] Date: July 08, 2019 Time: 10:27 AM [facility] CASE MANAGEMon 07-08-2019 CASE MANAGEM HNO ID: [id number] Author: Imelda GusmanRnSachin Rizvi RN Service: ? Author Type: Registered Nurse Type: Care Mgt Progress Note Filed: 07/08/2019 2:47 PM Note Text: CARE MANAGEMENT PROGRESS NOTE SERVICE DATE: 07/08/2019 SERVICE TIME: 2:45 PM LOS: 4 days FREEDOM OF CHOICE GIVEN: Yes acute rehab The patient and/or family has been given the Provider List: Yes Provider List: Rehab Facility Preference: [facility] Rehab Needs Prior to Discharge: Accepting Facility;Discharge Transportation Met with pt and sister to discuss disch plan.. Pt and sister are in agreement for [facility] rehab. Referral created. SIGNATURE: Imelda Rizvi RN PATIENT NAME: Elias Shah DATE: July 08, 2019 TIME: 2:45 PM PAGER/CONTACT #: [phone] [facility] CASE MANAGEM HNO ID: [id number] Author: Serene Amaya Service: Care Management Author Type: ? Type: Care Mgt Progress Note Filed: 07/08/2019 9:56 AM Note Text: CARE MANAGEMENT PROGRESS NOTE SERVICE DATE: 07/08/2019 SERVICE TIME: 844 LOS: 4 days IM letter given to patient on [id number]. SIGNATURE: Serene Amaya PATIENT NAME: Elias Shah DATE: July 08, 2019 TIME: 9:56 AM PAGER/CONTACT #: [phone] [facility] CONSULT PROGon 07-08-2019 CONSULT PROG HNO ID: [id number] Author: Tahir Riley MD Service: Neurology ICU [...] TIME: 7:44 PM Current Attending Provider: Wayne Barber Neurology was asked by the CVICU team [...] and coagulopathy w/ thrombocytopenia who presented to [facility] for CABG and AVR. Patient is [...] 08, 2019 TIME: 7:44 PM PAGER/CONTACT #: [phone] [facility] NUTRITIONon 07-08-2019 NUTRITION HNO ID: [id number] Author: Yasmine Tucker) ESTELA Sanchez Service: Nutrition Therapy Author Type: Registered [...] HERNIA 12/04/2018 after bowel perforation done at [facility] Dr. Young Social History Tobacco Use [...] office 05/25/19 : 89.4 kg (197 lb), slabber 05/11/19 : 88.5 kg (195 lb), cardiology 05/11/19 : 88.8 kg (195 lb 12.8 oz) 04/13/19 : 88.9 kg (196 lb) [place] Body Weight: 80.9kg Resting Metabolic Rate: 1755 Estimated kilocalorie needs: 2129-1741 kilocalories determined by 25-30 kcal/kg Estimated protein needs: 97-121 grams determined by 1.2-1.5 g/kg [place] weight Estimated fluid needs: 3923-8167 milliliters based on 1 mL per kcal [...] July 08, 2019 TIME: 8:39 AM PAGER: [phone] [facility] PROGRESSon 07-08-2019 PROGRESS HNO ID: [id number] Author: Nohemi Glover Service: Cardiovascular Disease Author [...] 2. BMP 3. CBC SIGNATURE: Nohemi Glover APRN.LAVENDER FARM WORKER PATIENT NAME: Elias Shah DATE: July 08, 2019 TIME: 12:57 PM PAGER/CONTACT #: [phone] [phone] [facility] PROGRESS HNO ID: [id number] Author: Marlon Dubon Jr. Service: Critical Care [...] HERNIA 12/04/2018 after bowel perforation done at [facility] Dr. Young Social History Socioeconomic History [...] file Gets together: Not on file Attends latter-day service: Not on file Active member of [...] -- -- -- 2.9* ABG: Recent Labs 07/07/19854 PH 7.382 PO2 101.0 PCO2 36.8 CXR [...] July 08, 2019 TIME: 9:56 AM [facility] PROGRESS HNO ID: [id number] Author: Jim Castro DO Service: Cardiac Surgery [...] controlled. Persisting chest pain. DIET NPO per FEEDER WORKER POWER UNIT OPERATOR. Objective Admission Weight: 90.7 kg (200 lb) [...] recommendations, check Vit D and B12 - FEEDER WORKER POWER UNIT OPERATOR: NPO alternate means of nutrition. Continued reassessments [...] 2019 TIME: 6:14 AM PAGER/CONTACT #: [phone] [facility] THERAPY NTon 07-08-2019 THERAPY NT HNO ID: [id number] Author: Daria (Ccc-Pc Analyst) YUKI Mccauley/FEEDER WORKER POWER UNIT OPERATOR Service: Speech/Swallow Author Type: Speech Language Pathologist Type: Therapy (PT/OT/Speech/Resp) Filed: 07/08/2019 3:14 PM Note Text: Speech Therapy Treatment SERVICE DATE: 07/08/2019 SERVICE TIME: 1448 to 1504 ROOM: [id number] Nursing Recommendations: See swallow guide posted in [...] Session -Patient alert, up in bed on FEEDER WORKER POWER UNIT OPERATOR arrival, agreeable to therapy -Able to feed self with set up assist -Mastication time increased for solids -Trace to minimal oral residuals post swallow, able to clear with FEEDER WORKER POWER UNIT OPERATOR facilitated liquid wash -Laryngeal movement detected upon [...] Dysphagia, oropharyngeal phase Interventions Provided: Dysphagia Therapy (36234) $ Dysphagia Therapy (08540) Billed Units: 1 unit Skilled Interventions: Provided [...] evaluation/treatment. SIGNATURE: Daria Mccauley [facility]-FEEDER WORKER POWER UNIT OPERATOR PATIENT NAME: Elias Shah DATE: July 08, 2019 TIME: 3:09 PM [facility] CONSULTon 07-07-2019 CONSULT HNO ID: [id number] Author: Saeed Philip (Pa) Service: Neurology ICU Author Type: Physician Truck Manager Type: Consults Filed: 07/07/2019 9:18 PM Note [...] and coagulopathy w/ thrombocytopenia who presented to [facility] for CABG and AVR. Patient is [...] HERNIA 12/04/2018 after bowel perforation done at [facility] Dr. Young Social History Socioeconomic History [...] file Gets together: Not on file Attends latter-day service: Not on file Active member of [...] 07, 2019 TIME: 8:38 PM PAGER/CONTACT #: [phone] [facility] NURSING PROGon 07-07-2019 NURSING PROG HNO ID: [id number] Author: Suni (Rn) AGUSOT Maguire Service: ? Author Type: Registered Nurse [...] continue to monitor, educate and encourage [facility] NURSING PROG HNO ID: [id number] Author: Suni (Rn) AGUSTO Maguire Service: ? [...] and reactive, will continue to monitor [facility] PLAN OF CAREon 07-07-2019 PLAN OF CARE HNO ID: [id number] Author: Angely Mora (Pharmacist) Service: Pharmacy Author Type: Pharmacist Type: Plan of Care Filed: 07/11/2019 3:04 PM Note Text: MEDICATION HISTORY Patient Name:.Elias Shah : 1940 Source of history:Pharmacy records: [facility] (electronic and fax) and Patient: recognized most medications, could not necessarily remember the name of every single medication Medication Nonadherence Identified: No barriers noted The above information represents the best possible medication history: Yes Additional comments: Qetba-ul-Fnxxdoqjq Medication List Adjustments: Medication Regimen Changes: Carvedilol [...] 07, 2019 2:31 PM Reconciliation: Yes All CRIMINAL RESEARCH SPECIALIST medications addressed by LIP Additional comments: N/A Allergies: ALLERGIES No Known Allergies Preferred Pharmacy: [facility] Current CRIMINAL RESEARCH SPECIALIST Medications: Prior to Admission medications as of [...] RELIEF) 50 mcg/actuation nasal spray Use 1 [place] in each nostril once daily. 07/03/2019 at [...] daily. Unknown at Unknown time Risa Garcia (Tender Coordinator) July 07, 2019 1:22 PM [facility] PROGRESSon 07-07-2019 PROGRESS HNO ID: [id number] Author: Marlon Millan (Pa) Service: Cardiovascular Surgery Author Type: Physician Truck Manager Type: Progress Notes Filed: 07/07/2019 4:15 PM [...] There has been a gradual mental status acid changer the last 12H. Afib RVR continued [...] 07, 2019 TIME: 11:03 AM PAGER/CONTACT #: [phone] ETX [phone] Addendum #[phone] 07/07/[address] brain without contrast now [...] gtt without bolus. Marlon Millan PA-C [facility] PROGRESS HNO ID: [id number] Author: Marlon Dubon Jr. Service: Critical Care [...] HERNIA 12/04/2018 after bowel perforation done at [facility] Dr. Young Social History Socioeconomic History [...] file Gets together: Not on file Attends latter-day service: Not on file Active member of [...] July 07, 2019 TIME: 12:42 PM [facility] PROGRESS HNO ID: [id number] Author: Jim Castro DO Service: Cardiac Surgery [...] 2019 TIME: 6:25 AM PAGER/CONTACT #: [phone] [facility] THERAPY NTon 07-07-2019 THERAPY NT HNO ID: [id number] Author: Daria (Ccc-Pc Analyst) YUKI Mccauley/FEEDER WORKER POWER UNIT OPERATOR Service: Speech/Swallow Author Type: Speech Language Pathologist Type: Therapy (PT/OT/Speech/Resp) Filed: 07/07/2019 2:13 PM Note Text: Speech Therapy Clinical Swallow Evaluation SERVICE DATE: 07/07/2019 SERVICE TIME: 1315 to 1330 ROOM: [place] [address] Nursing Recommendations: See swallow guide posted in [...] oropharyngeal phase Interventions Provided: Clinical Swallow Evaluation (09834) $ Clinical Swallow Evaluation (37078) Billed Units: 1 unit Total Treatment Time [...] for this therapy evaluation/treatment. SIGNATURE: Daria Mccauley CCC-FEEDER WORKER POWER UNIT OPERATOR PATIENT NAME: Elias Shah DATE: July 07, 2019 TIME: 1:46 PM [facility] ECG COMPLETEon 07-06-2019 ECG COMPLETE NAME : ELIAS SHAH PID : [id number] : 1940 Gender : Male Race : ORD : [id number] Procedure Date : Jul 06 2019 16:54:40 [...] INFARCT PRESENT Confirmed by MD CHUNG, ABDELRAHMAN ([id number]) on 07/07/2019 8:49:48 AM Ventricular Rate : 126 BPM Atrial Rate : 122 BPM QRS Duration : 104 ms Q-T Interval : 340 ms QTC Calculation(Bazett) : 492 ms R [place] : -39 degrees T [place] : 142 degrees Test Reason : Arrhythmia Location : 6 : CVICU 3229 Overread By : MD WILKES ANUBHAV Edited By : MD WILKES ANUBHAV Referred By : WAYNE RIVERS Acquired by : EDUARDO LEONE [facility] ECG COMPLETE NAME : ELIAS SHAH PID : [id number] : 1940 Gender : Male Race : ORD : [id number] Procedure Date : Jul 06 2019 06:19:49 [...] VENTRICULAR PACEMAKER Confirmed by MD WILKES ANUBHAV ([id number]) on 07/06/2019 1:42:11 PM Ventricular Rate : 136 BPM Atrial Rate : 96 BPM QRS Duration : 100 ms Q-T Interval : 336 ms QTC Calculation(Bazett) : 505 ms R [place] : -40 degrees T [place] : 132 degrees Test Reason : Arrhythmia Location : 6 : CVICU 3229 Overread By : MD WILKES ANUBHAV Edited By : MD WILKES ANUBHAV Referred By : WAYNE RIVERS Acquired by : LUCY DALTON [facility] NURSING PROGon 07-06-2019 NURSING PROG HNO ID: [id number] Author: Earline (Rn) AGUSTO Celaya Service: Nursing [...] [facility] PROGRESSon 07-06-2019 PROGRESS HNO ID: [id number] Author: Bhanu Miranda MD Service: Urology Author [...] PGY-2 July 06, 2019 6:12 PM Pager: [phone] [facility] PROGRESS HNO ID: [id number] Author: Marlon Millan (Pa) Service: Cardiovascular Surgery Author Type: Physician Truck Manager Type: Progress Notes Filed: 07/06/2019 5:20 PM [...] 06, 2019 TIME: 5:00 PM PAGER/CONTACT #: [phone] ETX#[phone] [facility] PROGRESS HNO ID: [id number] Author: Marlon Dubon Jr. Service: Critical Care [...] HERNIA 12/04/2018 after bowel perforation done at [facility] Dr. Young Social History Socioeconomic History [...] file Gets together: Not on file Attends latter-day service: Not on file Active member of [...] per 24 hour Intake 9290 ml Output 13962 ml Net -765 ml MEDICATIONS Current Facility-Administered [...] July 06, 2019 TIME: 3:36 PM [facility] PROGRESS HNO ID: [id number] Author: Oc Gustafson (Pa) Service: Cardiac Surgery Author Type: Physician Truck Manager Type: Progress Notes Filed: 07/06/2019 12:04 PM [...] per 24 hour Intake 9155 ml Output 05701 ml Net -960 ml TELEMETRY: sinus tachycardia [...] tube have been removed. ?Right internal jugular Walton-Ale catheter noted with tip in the pulmonary [...] July 06, 2019 TIME: 9:15 AM PAGER/CONTACT #:[phone] [phone] [facility] PROGRESS HNO ID: [id number] Author: Abraham Lorenzo Service: Urology Author Type: [...] per 24 hour Intake 9155 ml Output 70946 ml Net -995 ml Physical Exam: General: [...] 7.346 (L) 7.350 - 7.450 Final Specific [place], Ur Date Value Ref Range Status 06/27/2019 [...] PGY-2 July 06, 2019 7:32 AM Pager: [phone] Attending Note I evaluated the patient and personally participated in the simmons components. I agree with the resident's findings and plan as documented and have discussed the case and management of the patient's care with the resident. Signature: Abraham Lorenzo DO, MBA Date: 07/06/2019 Time: 10:19 AM [facility] PROGRESS HNO ID: [id number] Author: Jim Castro DO Service: Cardiac Surgery [...] 07/06/2019 0400 Gross per 24 hour Intake 26317 ml Output 54121 ml Net -1239 ml TELEMETRY: Afib with RVR PHYSICAL EXAM: General: Well developed and well nourished appearance. Mild distress. Skin: No rash on chest, arms or legs. Warm, dry. Head/Eyes: Sclera clear, normal conjunctiva. EOMI. Mouth/Pharynx: Teeth: Fair dentition. No lesions. Neck: No JVD. Supple. R IJ Walton Ale catheter Lungs: Unlabored breathing on ventilator [...] 2019 TIME: 6:05 AM PAGER/CONTACT #: [phone] [facility] THERAPY NTon 07-06-2019 THERAPY NT HNO ID: [id number] Author: Crystal Cervantes/Carleen Berrios Service: Occupational Therapy Author Type: Occupational Therapist Type: Therapy (PT/OT/Speech/Resp) Filed: 07/06/2019 4:11 PM Note Text: Occupational Therapy Evaluation SERVICE DATE: 07/06/2019 SERVICE TIME: 1345 to 1355 ROOM: [place] [address] Recommended Discharge Disposition: Subacute/SNF Recommended Discharge Disposition [...] and Awareness Interventions Provided: Evaluation $ Evaluation-Moderate (16845) Billed Units: 1 unit OT Evaluation Moderate [...] Environment Patient Lives With: Family(sister) Assistance Available: maritime officer Entry To Home: Stairs Prior Functional Level: [...] complete details for this therapy evaluation/treatment. SIGNATURE: Bharati Hodges, S/OT PATIENT NAME: Elias Shah DATE: July 06, 2019 TIME: 2:45 PM Evaluation and/or treatment directly supervised by licensed Occupational Therapist. I reviewed and agree with the documentation corresponding to this therapy visit. SIGNATURE: Crystal Berrios OTR/L DATE: July 06, 2019 TIME: 4:11 PM [facility] THERAPY NT HNO ID: [id number] Author: Misa GusmanPtSachin Felipe Service: Physical Therapy Author Type: Physical Therapist Type: Therapy (PT/OT/Speech/Resp) Filed: 07/06/2019 2:51 PM Note Text: Physical Therapy Evaluation SERVICE DATE: 07/06/2019 SERVICE TIME: 1350 to 1415 ROOM: [id number] Recommended Discharge Disposition: Subacute/SNF Recommended Discharge Disposition [...] Patient TREATMENT INTERVENTIONS: Interventions Provided: Evaluation;Gait Training (28283) $ Evaluation-Moderate (63510) Billed Units: 1 unit History and examination of body systems see assessment section above. This patient?s clinical presentation is evolving. The patient required a moderate complexity evaluation. Gait Training (48713) Treatment Minutes: 8 1 unit Skilled Intervention(s): [...] Environment Patient Lives With: Family(sister) Assistance Available: maritime officer Entry To Home: Stairs Prior Functional Level: [...] July 06, 2019 TIME: 2:44 PM [facility] CASE MGT INIT Karen 2018 CASE MGT INIT DEVAN HNO ID: [id number] Author: Imelda (Rn) AGUSTO Rizvi Service: ? [...] Current Advance Directive: Health Care Power of Advocacy Director;Living Will In Chart: Yes Up To [...] Walker Has the Patient Been in a Nursing Home Facility in the Past 30 days? No SOCIAL: Living Arrangement: Home Lives With: sister Financial Resources: Retired Primary Contact: Extended Emergency Contact Information Primary Emergency Contact: Amaila Zamora [place] Relation: Sister Supportive: Yes Other Important Patient Contacts: None Caregiver Assessment: Caregiver is ready, willing and able to meet the patient's needs as recommended by the inter-professional team? Yes Patient's transition needs and plan for meeting these needs: home with sister and [facility] Does the patient have an acute stroke diagnosis, or has the patient had a stroke during this admission? 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 Discussed post CABG disch needs. Planis home with sister's assist. Agreeable to [facility] - referral created. SIGNATURE: Imelda Rizvi RN PATIENT NAME: Elias Shah DATE: July 05, 2019 TIME: 3:01 PM PAGER/CONTACT #: [phone] [facility] ECG COMPLETEon 07-05-2019 ECG COMPLETE NAME : ELIAS SHAH PID : [id number] : 1940 Gender : Male Race : ORD : [id number] Procedure Date : Jul 05 2019 04:46:58 Edit Date : Jul 05 2019 08:38:13 Diagnosis:AV dual-paced rhythm ABNORMAL ECG WHEN COMPARED WITH ECG OF 04-JUL-2019 15:30, VENT. RATE HAS INCREASED BY 63 BPM Confirmed by MD CHUNG, ABDELRAHMAN ([id number]) on 07/05/2019 8:38:12 AM Ventricular Rate : 139 BPM Atrial Rate : 139 BPM QRS Duration : 36 ms Q-T Interval : 170 ms QTC Calculation(Bazett) : 258 ms R [place] : 88 degrees T [place] : -58 degrees Test Reason : Post-OP Location : 6 : [place] [address] Overread By : MD WILKES ANUBHAV Edited By : MD WILKES ANUBHAV Referred By : WAYNE RIVERS Acquired by : SAÚL HOWARD [facility] NUTRITIONon 07-05-2019 NUTRITION HNO ID: [id number] Author: Teresa (Information Technology Assistant) [place] Service: Nutrition Therapy Author Type: Investigations Chief Type: Nutrition Filed: 07/05/2019 2:33 PM Note Text: Attestation signed by Yasmine Sanchez RD at 07/05/2019 3:04 PM NUTRITION THERAPY: TEACHING DIETITIAN NOTE OF PERSONAL INVOLVEMENT OF CARE. I have reviewed and agree with the assessment as documented by the manager internet retails sales. I have discussed the case and management of the patient?s nutrition therapy with the manager internet retails sales. SIGNATURE: Yasmine Sanchez RD, DATE: July 05, [...] Resting Metabolic Rate: 1712 Estimated kilocalorie needs: 9809-5349 kilocalories determined by 25-30 kcal/kg Estimated protein needs: 115-145 grams determined by 1.2-1.5 g/kg Dosing weight Estimated fluid needs: 3791-6823 milliliters based on 1 mL per kcal [...] Assess/15 min 3 units SIGNATURE: Teresa Schultz, Information Technology Assistant PATIENT NAME: Elias Shah DATE: July 05, 2019 TIME: 9:28 AM PAGER: [phone] [facility] PROGRESSon 07-05-2019 PROGRESS HNO ID: [id number] Author: Marlon Millan (Pa) Service: Cardiovascular Surgery Author Type: Physician Truck Manager Type: Progress Notes Filed: 07/05/2019 2:58 PM [...] 07/05/2019 1200 Gross per 24 hour Intake 24420.1 ml Output 54747 ml Net 1573.1 ml TELEMETRY: Paced with [...] 05, 2019 TIME: 2:23 PM PAGER/CONTACT #: [phone] [phone] [facility] PROGRESS HNO ID: [id number] Author: Earline (Rn) AGUSTO Celaya Service: Nursing Author Type: Registered Nurse Type: Progress Notes Filed: 07/05/2019 12:46 PM Note Text: 1105: pt extubated to 4L nc without distress. [facility] PROGRESS HNO ID: [id number] Author: Bhanu (Res) MD Ruth Service: Urology [...] 07/05/2019 0700 Gross per 24 hour Intake 43027.1 ml Output 18867 ml Net 1644.1 ml Physical Exam: General: [...] 7.346 (L) 7.350 - 7.450 Final Specific [place], Ur Date Value Ref Range Status 06/27/2019 [...] PGY-2 July 05, 2019 11:23 AM Pager: [phone] [facility] PROGRESS HNO ID: [id number] Author: Marlon Dubon Jr. Service: Critical Care [...] HERNIA 12/04/2018 after bowel perforation done at [facility] Dr. Young Social History Socioeconomic History [...] file Gets together: Not on file Attends latter-day service: Not on file Active member of [...] 07/05/2019 0700 Gross per 24 hour Intake 23040.1 ml Output 64980 ml Net 1644.1 ml MEDICATIONS Current Facility-Administered [...] and follows Respiratory/Nursing Documentation: O2 Therapy: Ventilator (07/05/19 0810) Invasive Ventilator Mode: Continuous Positive Airway Pressure;Pressure [...] July 05, 2019 TIME: 10:30 AM [facility] PROGRESS HNO ID: [id number] Author: Jim Castro DO Service: Cardiac Surgery [...] 07/05/2019 0400 Gross per 24 hour Intake 97921.1 ml Output 50229 ml Net 454.1 ml TELEMETRY: A-V sequential pacing PHYSICAL EXAM: General: Well developed and well nourished appearance. No acute distress. Skin: No rash on chest, arms or legs. Warm, dry. Head/Eyes: Sclera clear, normal conjunctiva. EOMI. Mouth/Pharynx: Teeth: Fair dentition. No lesions. Neck: No JVD. Supple. R IJ Walton Ale catheter Lungs: Unlabored breathing on ventilator [...] 2019 TIME: 6:11 AM PAGER/CONTACT #: [phone] [facility] PROGRESS HNO ID: [id number] Author: Joel (Rn) AGUSTO Resendez Service: Critical Care Author Type: Registered Nurse Type: Progress Notes Filed: 07/05/2019 4:22 AM Note Text: HAND H 1 hour after completion of PRBC infusion 6.[address] Rivers paged twice. RN reported lab to Dr. Kincaid. See new orders. [facility] THERAPY NTon 07-05-2019 THERAPY NT HNO ID: [id number] Author: Crystal GusmanOtr/Carleen Berrios Service: Occupational Therapy Author Type: Occupational Therapist Type: Therapy (PT/OT/Speech/Resp) Filed: 07/05/2019 11:54 AM Note Text: OCCUPATIONAL THERAPY MISSED VISIT SERVICE DATE: 07/05/2019 SERVICE TIME: 1154 to 1154 ROOM: [id number] Attempted Evaluation. Patient not seen due to Illness(intubted). Will continue to follow as able and appropriate. SIGNATURE: Crystal Berrios, OTR/L PATIENT NAME: Elias Shah DATE: July 05, 2019 TIME: 11:54 AM [facility] THERAPY NT HNO ID: [id number] Author: Nohemi Meehan Service: Physical Therapy Author Type: Physical Therapist Type: Therapy (PT/OT/Speech/Resp) Filed: 07/05/2019 8:54 AM Note Text: PHYSICAL THERAPY MISSED VISIT SERVICE DATE: 07/05/2019 SERVICE TIME: 0853 to 0853 ROOM: [id number]-ROTG-1611-01 Attempted Evaluation. Patient not seen due to Illness(intubated). Will continue to follow patient as able. SIGNATURE: Nohemi eMehan PT PATIENT NAME: Elias Shah DATE: July 05, 2019 TIME: 8:54 AM [facility] ANES Namita 07-04-2019 ANES POST HNO ID: [id number] Author: Dion Monroe Service: Anesthesiology Author Type: Physician Type: Anesthesia PostOp Filed: 07/04/2019 7:58 PM Note Text: POST ANESTHESIA EVALUATION NOTE SERVICE DATE: 07/04/2019 SERVICE TIME: 7:58 PM : 1940 Vitals: 07/04/19 1615 07/04/19 1630 07/04/19 1639 07/04/19 1645 Temp: (!) 32.2 ?C (90 ?F) (!) 34.9 ?C (94.8 ?F) (!) 32.5 ?C (90.5 ?F) (!) 33.1 ?C (91.6 ?F) 07/04/19181407/04/19 18307/04/19 18407/04/19 1900 Arterial BP 1: 129/58 123/54 138/62 128/57 BP: 07/04/19181407/04/19 1830 07/04/19 18407/04/19 1900 Pulse: 70 70 70 70 07/04/19181407/04/19 18307/04/19 18407/04/19 1900 Resp: 14 14 16 17 07/04/19181407/04/19 18307/04/19 18407/04/19 1900 SpO2: 100% 100% 100% 100% [...] 04, 2019 TIME: 7:58 PM PAGER/CONTACT #: [phone] [facility] ANES PREOPon 07-04-2019 ANES PREOP HNO ID: [id number] Author: Burak Gamez Service: ? Author Type: [...] HERNIA 12/04/2018 after bowel perforation done at [facility] Dr. Young FAMILY HISTORY Problem Relation [...] RELIEF) 50 mcg/actuation nasal spray Use 1 [place] in each nostril once daily. Cholecalciferol, Vitamin [...] mL (ANCEF) 2 g INTRAVENOUS ONCE Oc Gustafson (Pa) - vancomycin iv piggyback 1 g in D5W 200 mL (VANCOCIN) 1 g INTRAVENOUS ONCE Oc Rubi (Pa) heparin 3,000 Units in NaCl 0.9% 500 mL irrigation 3,000 Units IRRIGATION ONCE Wayne Dougie Lahorra - PHENYLephrine 20 mg in NaCl [...] 250 mL 0.5-10 mcg/min INTRAVENOUS ONCE Wayne Rivers - insulin regular iv infusion 100 units in NaCl 0.9% 100 mL - AK CARD SURG NOMOGRAM 0-12 Units/hr INTRAVENOUS ONCE Wayne Rivers - nitroglycerin 100 mg in D5W 250 mL 5-20 mcg/min INTRAVENOUS ONCE Wayne Rivers - NORepinephrine 16 mg in NaCl 0.9% 250 mL (LEVOPHED) 0-20 mcg/min INTRAVENOUS ONCE Wayne Rivers - PHENYLephrine iv infusion 10 mg in NaCl 0.9% 250 mL (ZACH-SYNEPHRINE) 0-100 mcg/min INTRAVENOUS ONCE Wayne Raerrdougie - dextrose 50 g, insulin regular human 10 Units, potassium chloride 80 mEq, lidocaine (PF) 20 mg/mL (2 %) 100 mg, magnesium sulfate 4 g in electrolyte-a (PLASMA-LYTE A) 1,000 mL solution MISCELLANEOUS ONCE Wayne Raerra - dextrose 25 g, insulin regular human 5 Units, potassium chloride 20 mEq, lidocaine (PF) 20 mg/mL (2 %) 50 mg, magnesium sulfate 2 g in electrolyte-a (PLASMA-LYTE A) 500 mL solution MISCELLANEOUS ONCE Wayne Reya Allergies: ALLERGIES No Known Allergies DOS EXAM: [...] July 04, 2019 TIME: 7:33 AM CSN: [id number] [facility] BRIEF OP NOTon 07-04-2019 BRIEF OP NOT HNO ID: [id number] Author: Jim Castro DO Service: Cardiac Surgery [...] BRIEF OPERATIVE / PROCEDURE NOTE LOG ID: [id number] SURGERY/PROCEDURE DATE: 07/04/2019 INCISION/PROCEDURE START TIME: 8:32 AM INCISION CLOSE/PROCEDURE END TIME: 1:40 PM SURGEON(S)/PROCEDURAL IST(S) AND SCOUT EXECUTIVE(S): Surgeon(s) and Role: * Wayne Rivers - Primary * Jim Castro DO - Resident - Assisting Physician Truck Manager: Aubree Raman (Pa) Museum [employer] Director: Joellen Rivas SA SURGERY/PROCEDURE(S): Two vessel cardiac [...] [facility] CONSULTon 07-04-2019 CONSULT HNO ID: [id number] Author: Bhanu (Luis Enrique Miranda MD Service: Urology Author Type: Resident [...] HERNIA 12/04/2018 after bowel perforation done at [facility] Dr. Young ALLERGIES: ALLERGIES No Known [...] RELIEF) 50 mcg/actuation nasal spray Use 1 [place] in each nostril once daily. Disp: Rfl: [...] 07/04/2019 7.410 7.350 - 7.450 Final Specific [place], Ur Date Value Ref Range Status 06/27/2019 [...] Bhanu Miranda MD 07/04/2019 7:07 PM [facility] ECG COMPLETEon 07-04-2019 ECG COMPLETE NAME : ELIAS SHAH PID : [id number] : 1940 Gender : Male Race : ORD : [id number] Procedure Date : Jul 04 2019 15:30:55 Edit Date : Jul 05 2019 08:38:41 Diagnosis:AV dual-paced rhythm with prolonged AV conduction ABNORMAL ECG WHEN COMPARED WITH ECG OF 04-JUL-2019 14:32, VENT. RATE HAS INCREASED BY 6 BPM Confirmed by MD CHUNG, ABDELRAHMAN ([id number]) on 07/05/2019 8:38:40 AM Ventricular Rate : 76 BPM Atrial Rate : 76 BPM P-R Interval : 368 ms QRS Duration : 38 ms Q-T Interval : 374 ms QTC Calculation(Bazett) : 420 ms R [place] : 90 degrees T [place] : -30 degrees Test Reason : Arrhythmia Location : 6 : [place] [address] Overread By : MD WILKES ANUBHAV Edited By : MD WILKES ANUBHAV Referred By : WAYNE RIVERS Acquired by : ELKE DUMONT [facility] ECG COMPLETE NAME : ELIAS SHAH PID : [id number] : 1940 Gender : Male Race : ORD : [id number] Procedure Date : Jul 04 2019 14:32:24 Edit Date : Jul 05 2019 08:37:21 Diagnosis:Atrial-sens ed ventricular-paced rhythm with prolonged AV conduction ABNORMAL ECG NO PREVIOUS ECGS AVAILABLE Confirmed by MD WILKES ANUBHAV ([id number]) on 07/05/2019 8:37:20 AM Ventricular Rate : 70 BPM Atrial Rate : 70 BPM P-R Interval : 352 ms QRS Duration : 32 ms Q-T Interval : 368 ms QTC Calculation(Bazett) : 397 ms R [place] : 90 degrees T [place] : -43 degrees Test Reason : Post-OP Location : 6 : [place] [address] Overread By : MD WILKES ANUBHAV Edited By : MD WILKES ANUBHAV Referred By : WAYNE RIVERS Acquired by : [id number], [facility] HISTORY PHYSICALon HISTORY PHYSICAL HNO ID: [id number] Author: Jim Castro DO Service: Cardiac Surgery [...] July 04, 2019 TIME: 6:45 AM PAGER: [phone] [facility] NURSING PROGon 07-04-2019 NURSING PROG HNO ID: [id number] Author: Stephany (Rn) AGUSTO Peterson Service: ? [...] OPERATIVE NOon 07-04-2019 OPERATIVE NO HNO ID: [id number] Author: Wayne Rivers Service: Cardiac Surgery Author Type: Physician Type: Operative Report Filed: 07/05/2019 6:23 PM Note Text: [facility] - Operative Report ELIAS SHAH : 1940 AGE: 79. SEX: M PATIENT TYPE: I HOSP SVC: ORCA LOCATION: [id number] ATTENDING PHYSICIAN: WAYNE RIVERS CSN NUMBER: [id number] DATE OF SURGERY/PROCEDURE: 07/04/2019 INCISION/PROCEDURE START TIME: 8:32 AM INCISION CLOSE/PROCEDURE END TIME: 1:40 PM PREOPERATIVE DIAGNOSIS: Multivessel coronary disease; severe aortic stenosis; paroxysmal atrial fibrillation. POSTOPERATIVE DIAGNOSIS: Multivessel coronary disease; severe aortic stenosis; paroxysmal atrial fibrillation. SURGEON: Wayne Rivers MD SCOUT EXECUTIVE: Ms. Raman and Ms. Rivas. SURGERY/PROCEDURE: Aortic [...] in layers with absorbable suture. The sternal disk grinder was placed in the wound. A pericardial [...] CV-ICU in good condition. Wayne Rivers MD JAL:[id number] [facility] PROGRESSon 07-04-2019 PROGRESS HNO ID: [id number] Author: Joel (Rn) AGUSTO Resendez Service: Critical Care Author Type: Registered Nurse Type: Progress Notes Filed: 07/04/2019 8:16 PM Note Text: Weaning parameters not met. NIF -12 and pt very drowsy. Dr. Kincaid notified. Plan is to recheck parameters at 2100 and re evaluate for extubation. [facility] PROGRESS HNO ID: [id number] Author: Marlon Dubon Jr. Service: Critical Care [...] HERNIA 12/04/2018 after bowel perforation done at [facility] Dr. Young Social History Socioeconomic History [...] file Gets together: Not on file Attends latter-day service: Not on file Active member of [...] July 04, 2019 TIME: 2:38 PM [facility] CONSULT PROGon 06-28-2019 CONSULT PROG HNO ID: [id number] Author: Higinio Bacon Service: Cardiac Surgery Author [...] 2.42% CABG/AVR CARE TEAM: Cardiac Surgeon: [employer] Managing Editor: Primo PCP: Regla Other Providers: Pre-Op Testing: [...] with VKA drugs, such as warfarin, the [employer] 2012 Guideline recommends [...] 2.5 to 3.5 target INR of 3). Daniett GH, et al. Chest 2012; 141:7S-47S Maria Victoria RA et al. JAC 2017; 70: 252-289 Anemia Evaluation: Anemic: Yes Accept Blood: Yes Blood Conservation Committee: No Ferritin: N/A FE+TIBC: N/A Fe Sat: N/A FOBT: N/A Anemia Treatment: Oral Iron UA pH, Urine Date Value Ref Range Status 06/27/2019 6.0 5.0 - 8.0 Final Specific [place], Ur Date Value Ref Range Status 06/27/2019 [...] Vascular surgery No Other No Higinio Bacon APRN.[employer]VENDER FARM WORKER [facility] CNOVon 06-27-2019 CNOV Office Visit (AGVASACC) ELIAS SHAH ([id number]) 1940 M Date Time Provider Department 06/27/19 [...] Normal sinus rhythm. - CAD of the [place] vessel. No interventions. Stable with no angina [...] HERNIA 12/04/2018 after bowel perforation done at [facility] Dr. Young FAMILY HISTORY Problem Relation [...] RELIEF) 50 mcg/actuation nasal spray Use 1 [place] in each nostril once daily. loperamide (IMODIUM) [...] (primary diagnosis) 2. Coronary artery disease involving [place] heart, angina presence unspecified, unspecified vessel or [...] 2019 TIME: 10:51 AM PAGER/CONTACT #: [phone] Higinio Bacon APRN.CNP 06/27/2019 2:06 PM Addendum [facility] Pre-Admission Patient Instruction You [...] at home. Remove all make-up and nail welsh before admission. We need to check your [...] [I35.0] Other Visit Diagnoses:Coronary artery disease involving [place] heart, angina presence unspecified, unspecified vessel or [...] FLONASE ALLERGY RELIEF 50 MCG* Use 1 [place] in each nostril o* LOPERAMIDE 2 MG [...] INVALID FOR* Other instructions from your clinician: [facility] Pre-Admission Patient Instruction You are scheduled [...] at home. Remove all make-up and nail welsh before admission. We need to check your [...] on 06/27/19 [facility] HISTORY PHYSICALon HISTORY PHYSICAL HNO ID: [id number] Author: Higinio Bacon Service: ? Author Type: [...] Normal sinus rhythm. - CAD of the [place] vessel. No interventions. Stable with no angina [...] HERNIA 12/04/2018 after bowel perforation done at [facility] Dr. Young FAMILY HISTORY Problem Relation [...] RELIEF) 50 mcg/actuation nasal spray Use 1 [place] in each nostril once daily. loperamide (IMODIUM) [...] (primary diagnosis) 2. Coronary artery disease involving [place] heart, angina presence unspecified, unspecified vessel or [...] 1.13, repeat is pending today Higinio Bacon APRN.LAVENDER FARM WORKER Tests/Labs Ordered: 1. CBC 2. CMP 3. HbA1c (average sugar test) 4. Lipids 5. Urinalysis 6. MRSA 7. Incentive spirometry 8. PT/INR 9. Magnesium These findings will be communicated back to the requesting provider electronically. SIGNATURE: Higinio Bacon APRN.CNP PATIENT NAME: Elias Shah DATE: June 27, 2019 TIME: 10:51 AM PAGER/CONTACT #: [phone] [facility] PROGRESSon 06-27-2019 PROGRESS HNO ID: [id number] Author: Higinio Bacon Service: ? Author Type: Nurse Practitioner Type: Progress Notes Filed: 06/27/2019 2:23 PM Note Text: [facility] Adult Cardiac Surgery Database Version 2.9 RISK SCORES Procedure: AVR + CAB Risk of Mortality: 2.422% Renal Failure: 2.127% Permanent Stroke: 1.782% Prolonged Ventilation: 8.378% DSW Infection: 0.164% Reoperation: 4.895% Morbidity or Mortality: 14.596% Short Length of Stay: 24.719% Long Length of Stay: 7.222% [facility] CNPJohanna 06-20-2019 KEEN Telephone (AGERICKAACC) ELIAS SHAH ([id number]) 1940 M Date Time Provider Department 06/20/19 HIGINIO BACON During your visit today, we recorded the following information about you: Ludivina aLwson 06/20/2019 10:55 AM Signed Patient's sister Amalia called in because the patient is scheduled for a presurgical appointment on 06/21/19. She is upset because they wanted to do all of that on 06/27/19 when they come see Higinio (which we have no record of) The patient comes from [place] and they don't want to Make two trips to [place] for the same reason. Amalia is not understanding what is going on and she's frustrated and would like to speak with Higinio at [phone] Higinio Bacon APRN.LAVENDER FARM WORKER 06/20/2019 11:09 AM Signed I called and spoke to Mrs Zamora. They do not need to come to the appointment on 06/21. That was scheduled in anticipation of TAVR. Mr Shah is not a TAVR candidate. He need CABG/AVR. This is scheduled 07/04. He has a PAT appointment with ct 06/27 at 1 pm. She verbalized understanding and agreed to this plan. Higinio Bacon APRN.LAVENDER FARM WORKER Allergies As of Date: 06/20/2019 (No Known Allergies) Date Reviewed: 05/25/2019 Reviewed by: Quinn (Rn) AGUSTO Rodrigues - Fully Assessed Reason for Visit: Question [8427] Reason For Visit History Recorded Prescriptions as [...] ridge* FLUTICASONE PROPIONATE 50 MCG* Use 1 [place] in each nostril o* LOPERAMIDE 2 MG [...] Encounter Status:Closed by LUDIVINA LAWSON on 06/20/19 [facility] CNPJohanna 06-15-2019 CNPN Telephone (YUSRAERICKACasper) ELIAS SHAH ([id number]) 1940 M Date Time Provider Department 06/15/19 [...] Schedule Surgery [1330] Order(s):SURGICAL REQUEST - ELECTIVE [[id number]] Order #: [id number]: 1 Prescriptions as of 06/15/2019 Sig: ASPIRIN [...] ridge* FLUTICASONE PROPIONATE 50 MCG* Use 1 [place] in each nostril o* LOPERAMIDE 2 MG [...] Status:Closed by LESLEY SANTANA on 06/16/19 [facility] HOSPon 06-15-2019 HOSP Patient:Manav Shah estela K [...] Progress Notes (JALYN AG CTVS): Higinio Bacon APRN.LAVENDER FARM WORKER 06/28/2019 1:42 PM Addendum CARDIOTHORACIC SURGERY CONSULT [...] Normal sinus rhythm. - CAD of the [place] vessel. No interventions. Stable with no angina [...] HERNIA 12/04/2018 after bowel perforation done at [facility] Dr. Poszgay FAMILY HISTORY Problem Relation Age of Onset [...] RELIEF) 50 mcg/actuation nasal spray Use 1 [place] in each nostril once daily. loperamide (IMODIUM) [...] (primary diagnosis) 2. Coronary artery disease involving [place] heart, angina presence unspecified, unspecified vessel or [...] 2019 TIME: 10:51 AM PAGER/CONTACT #: [phone] Previous Version Higinio Bacon APRN.CNP 06/27/2019 2:06 PM Addendum [facility] Pre-Admission Patient Instruction You are scheduled [...] at home. Remove all make-up and nail welsh before admission. We need to check your [...] 7.222% Progress Notes (JALYN AG CTVS): Ludivina Rushgers 06/20/2019 10:55 AM Signed Patient's sister Amalia called in because the patient is scheduled for a presurgical appointment on 06/21/19. She is upset because they wanted to do all of that on 06/27/19 when they come see Higinio (which we have no record of) The patient comes from [place] and they don't want to Make two trips to [place] for the same reason. Amalia is not understanding what is going on and she's frustrated and would like to speak with Higinio at [phone] Higinio Bacon APRN.KEE 06/20/2019 11:09 AM Signed I called and spoke to Mrs Zamora. They do not need to come to the appointment on 06/21. That was scheduled in anticipation of TAVR. Mr Shah is not a TAVR candidate. He need CABG/AVR. This is scheduled 07/04. He has a PAT appointment with ct 06/27 at 1 pm. She verbalized understanding and agreed to this plan. Higinio Bacon APRN.LAVENDER FARM WORKER [facility] BRIEF OP NOTon 05-25-2019 BRIEF OP NOT HNO ID: [id number] Author: Roger Bone Service: Interventional Cardiology Author Type: Physician Type: Brief Op Note Filed: 05/25/2019 1:15 PM Note Text: CARDIAC CATHETERIZATION REPORT PATIENT NAME: Elias Shah SERVICE DATE: 05/25/2019 SERVICE TIME: 1:05 PM Newspaper Managing Editor: Roger Bone MD Attending: Roger Bone RECOMMENDATIONS: [...] NURSING PROGon 05-25-2019 NURSING PROG HNO ID: [id number] Author: Quinn (Rn) AGUSTO Rodrigues Service: ? Author Type: Registered Nurse Type: Nursing Progress Note Filed: 05/25/2019 3:26 PM Note Text: Report to Sharon OLGUIN [facility] NURSING PROG HNO ID: [id number] Author: Quinn GusmanRn) AGUSTO Rodrigues Service: ? Author Type: Registered Nurse Type: Nursing Progress Note Filed: 05/25/2019 3:22 PM Note Text: Dr. Promise Bone aware of patient HR and blood pressure and advised okay to discharge when TR band is removed, no further orders given. [facility] PROGRESSon 05-25-2019 PROGRESS HNO ID: [id number] Author: Sharon GusmanRn) AGUSTO León Service: Nursing [...] % 05/20/2019 51.0 39.0 Progress Notes (MARLON ANDERSONB): Torie Henriquez RN, RN 05/18/2019 3:47 PM Addendum Patient scheduled for left heart cath, Saturday May 25, 2019, with Dr Bone . Instructions reviewed. Questions answered. Patient verbalized understanding. Instructions were as follows: -Arrive to [facility] HANDV Entrance May 25, 2019 at time assigned by [facility] lab support service tech staff in phone call 2:00 and 5:00 PM.. -Nothing by mouth after midnight evening prior. -With a sip of water on May 25, 2019 morning take: Aspirin 325mg along with usual BP meds Norvasc and Coreg -Labs to be done CBC, BMP - You must have someone drive you home from your procedure. -lab support service tech policy is pt not be alone first evening Office phone number provided for questions or concerns. Torin: [facility] slabber notified. Ameena at [facility] slabber notified of update on changing from Dr. Green to Dr. Bone as noted above. Torie Henriquez, AGUSTO Previous Version MICHAEL Kirkpatrick, [facility] 05/20/2019 10:03 AM Signed Patient has Medicare A AND B primary coverage so does not require prior authorization. We have started a new process to provide estimates to our patients for their upcoming appointment at [facility]. The purpose is to make you aware [...] for you. Martha Guillen Progress Notes (CARD AG [facility]): Latisha Matthews RN 05/11/2019 1:23 PM Signed LM home recorder to return call to discuss scheduling heart cath. Office phone number provided. AGUSTO Peck, AGUSTO 05/12/2019 9:15 AM Signed LM home recorder requesting return call. AGUSTO Peck, RN, RN 05/13/2019 1:06 PM Signed Patient scheduled for left heart cath, Peter, with Dr Olvera on Thursday, May 25, 2019Instructions reviewed. Questions answered. Patient verbalized understanding. Instructions were as follows: -Arrive to [facility] HANDV Entrance May 25, 2019 at time assigned by [facility] lab support service tech staff in phone call 2:00 -5:00 PM.. -Nothing by mouth after midnight evening prior. -With a sip of water on Saturday May 25, 2019 morning take: Aspirin 325mg along with usual BP meds- coreg and Norvasc -Labs to be done CBC, BMP - You must have someone drive you home from your procedure. -lab support service tech policy is pt not be alone first evening Office phone number provided for questions or concerns. Torin: [facility] slabber notified. [facility] CNOVon 05-11-2019 CNOV Office Visit (AGCARDPOB) ELIAS SHAH ([id number]) 1940 M Date Time Provider Department 05/11/19 [...] HERNIA 12/04/2018 after bowel perforation done at [facility] Dr. Young FAMILY HISTORY Problem Relation [...] RELIEF) 50 mcg/actuation nasal spray Use 1 [place] in each nostril once daily. loperamide (IMODIUM) [...] Allergies Cardiac Testing Transesophageal echocardiogram performed in [place] in February 2019: Ejection fraction 65%, severe restriction of the aortic valve with moderate to severe aortic stenosis with a peak gradient of 52 mmHg, mean gradient of 28 mmHg. Transthoracic [facility]: Ejection fraction 68%, peak and mean [...] heart catheterization and coronary angiogram performed at [place] which reflected mild coronary artery disease, but [...] - ECHO 2. Coronary artery disease involving [place] coronary artery of [place] heart without angina pectoris - ICD9: 414.01, [...] Espinoza Bass MD Referring Provider: GERALD ANN [[id number]] Allergies As of Date: 05/11/2019 (No Known Allergies) Date Reviewed: 05/11/2019 Reviewed by: Rebecca Ballard - Fully Assessed Reason for Visit: New Patient [172] Primary Visit Diagnosis:Nonrheumati c aortic valve stenosis [I35.0] Other Visit Diagnoses:Coronary artery disease involving [place] coronary artery of [place] heart without angina pectoris [I25.10] Pre-op evaluation [Z01.818] Essential hypertension [I10] Order(s):LEFT HEART CATH,PERCUTANEOUS [[id number]] Order #: [id number]: 1 ECHO [967619] Order #: [id number]: 1 FUTURE perflutren lipid microspheres (DEFINITY) 1.1 [...] ridge* FLUTICASONE PROPIONATE 50 MCG* Use 1 [place] in each nostril o* LOPERAMIDE 2 MG [...] denies any cardiac complaints today. Rebecca Ballard [facility] Prescriptions ordered this encounter Disp Refills Start End PERFLUTREN LIPID MICROSPHERES 1.1 MG* 1.3 * 0 05/11/2019 05/10/2020 Class: In Office Route: INTRAVENOUS Sig: Inject 1.3 mL intravenously as directed. Disposition: Return in about 1 month (around 06/10/2019). Follow-up and Disposition History Recorded Encounter Status:Closed by ESPINOZA BASS on 05/11/19 [facility] CNOV Office Visit (AGCARDPOB) ELIAS SHAH ([id number]) 1940 M Date Time Provider Department 05/11/19 10:30 AM WAYNE RIVERS During your visit today, we recorded the following information about you: Pulse Respiration Blood pressure Weight 48/minute 16/minute 140/64 88.5 kg Height 1.829 m Wayne Rivers MD 05/17/2019 2:55 PM Signed Elias Yen Leonid is an 79 year old man with [...] Wayne Rivers MD Referring Provider: GERALD ANN [[id number]] Allergies As of Date: 05/11/2019 (No Known Allergies) Date Reviewed: 05/11/2019 Reviewed by: Rebecca Ballard - Fully Assessed Reason for Visit: Cardiology Follow Up [1732] Primary Visit Diagnosis:Preoperativ e cardiovascular examination [Z01.810] Other Visit Diagnoses:Coronary artery disease involving [place] coronary artery of [place] heart without angina pectoris [I25.10] Nonrheumatic aortic valve stenosis [I35.0] Order(s):perflutren lipid microspheres (DEFINITY) 1.1 mg/mL injection (to be provided with echo procedure)Inject 1.3 mL intravenously as directed.Disp: 1.3 mLRfl: 0 LEFT HEART CATH/CORON/LV () [[id number]] Order #: [id number] Prescriptions as of 05/11/2019 Sig: PERFLUTREN LIPID MICROSPHERES* Inject 1.3 mL intravenously a* LACTOBACILLUS ACIDOPH-LACTASE* Take by mouth twice daily. ACETAMINOPHEN 500 MG CAPSULE Take 2 capsules by mouth twic* AMLODIPINE 5 MG TABLET Take 5 mg by mouth once daily. CARVEDILOL 25 MG TABLET Take 25 mg by mouth three ridge* FLUTICASONE PROPIONATE 50 MCG* Use 1 [place] in each nostril o* LOPERAMIDE 2 MG [...] of Service: EST PATIENT VISIT LEVEL 1 [[id number]] Encounter Status:Closed by WAYNE RIVERS MD on 05/17/19 [facility] CNPNon 05-11-2019 CNPN Telephone (AGCARDPOB ) ELIAS SHAH ([id number]) 1940 M Date Time Provider Department 05/11/19 [...] understanding. Instructions were as follows: -Arrive to [facility] HANDV Entrance May 25, 2019 at time assigned by [facility] lab support service tech staff in phone call 2:00 -5:00 PM.. -Nothing by mouth after midnight evening prior. -With a sip of water on Saturday May 25, 2019 morning take: Aspirin 325mg along with usual BP meds- coreg and Norvasc -Labs to be done CBC, BMP - You must have someone drive you home from your procedure. -lab support service tech policy is pt not be alone first evening Office phone number provided for questions or concerns. Torin: [facility] slabber notified. Allergies As of Date: 05/11/2019 (No [...] ridge* FLUTICASONE PROPIONATE 50 MCG* Use 1 [place] in each nostril o* LOPERAMIDE 2 MG [...] Center HISTORY PHYSICALon HISTORY PHYSICAL HNO ID: [id number] Author: Espinoza Bass Service: ? Author Type: [...] HERNIA 12/04/2018 after bowel perforation done at [facility] Dr. Young FAMILY HISTORY Problem Relation [...] RELIEF) 50 mcg/actuation nasal spray Use 1 [place] in each nostril once daily. loperamide (IMODIUM) [...] Allergies Cardiac Testing Transesophageal echocardiogram performed in [place] in February 2019: Ejection fraction 65%, severe restriction of the aortic valve with moderate to severe aortic stenosis with a peak gradient of 52 mmHg, mean gradient of 28 mmHg. [facility]: Ejection fraction 68%, peak and mean [...] heart catheterization and coronary angiogram performed at [place] which reflected mild coronary artery disease, but [...] - ECHO 2. Coronary artery disease involving [place] coronary artery of [place] heart without angina pectoris - ICD9: 414.01, [...] [facility] Center PROGRESSon 05-11-2019 PROGRESS HNO ID: [id number] Author: Wayne Rivers Service: ? Author Type: [...] recommendations to follow. Wayne Rivers MD [facility] HOSPon 04-27-2019 HOSP Patient:Manav Shah [...] PM Signed I did speak with Amalia Harperon pts sister who returned my call for [...] sister Amalia Zamora. Also request sent to [facility] Interventional Radiology for Cardiac CTA, AND CTA A/P TAVR protocol. They will contact pt directly to schedule. ? La Love 04/20/2019 2:31 PM Signed Okay thanks! Elisha Yoav Trinidaddasha ?You 25 minutes ago (2:05 PM) TAVR clinic appt 05/11 10:30am Routing Comment [facility] CNPJohanna 04-20-2019 CNPN Telephone (AGVASACC) ELIAS SHAH ([id number]) 1940 M Date Time Provider Department 04/20/19 WAYNE RIVERS During your visit today, we recorded the following information about you: Elisha Cardenas 04/20/2019 2:05 PM Signed Mr. Shah is schedule 05/11/19 10:30am with Dr. Green and Dr. Rivers for TAVR consult. Appointment information given to Mr. Shah's sister Amalia Zamora. Also request sent to [facility] Interventional Radiology for Cardiac CTA, AND CTA [...] ridge* FLUTICASONE PROPIONATE 50 MCG* Use 1 [place] in each nostril o* LOPERAMIDE 2 MG [...] CNTRTMon 04-19-2019 CNTRT Treatment Team (AGVASACC) LEONIDELIAS ([id number]) 1940 M Date Time Provider Department 04/19/19 [...] [I35.0] Other Visit Diagnosis:Coronary artery disease involving [place] heart with angina pectoris, unspecified vessel or lesion type (HCC) [I25.119] Order(s):LEFT HEART CATH,PERCUTANEOUS [[id number]] Order #: [id number]: 1 Prescriptions as of 04/19/2019 Sig: LACTOBACILLUS ACIDOPH-LACTASE* Take by mouth twice daily. ACETAMINOPHEN 500 MG CAPSULE Take 2 capsules by mouth twic* AMLODIPINE 5 MG TABLET Take 5 mg by mouth once daily. CARVEDILOL 25 MG TABLET Take 25 mg by mouth three ridge* FLUTICASONE PROPIONATE 50 MCG* Use 1 [place] in each nostril o* LOPERAMIDE 2 MG [...] Medical Center PROGRESSon 04-19-2019 PROGRESS HNO ID: [id number] Author: Higinio Medina) Joya Service: ? Author Type: Nurse Practitioner Type: Progress Notes Filed: 04/19/2019 9:02 AM Note Text: MULTI DISCIPLINARY HIGH RISK PCI AND VALVULAR DISEASE CARDIAC TEAM ? Members present: Kali, Manuel Bone, King Raman Frederick, Ruhlin, Stocker, Joya, Siva ? Presenting Physician: Manuel ? PATIENT NAME: Elias Yen Leonid DATE: 04/19/19 ? ? Outcome: Elias Shah's history and imaging were reviewed by the physicians in attendance. Severe , deconditioned following recent SBO, Cath with concern for CAD. ? The collaborative recommendation of the committee would be:Valve clinic, repeat cardiac catheterization to IVUS and possibly intervene in LAD and +/- LCx, TAVR CTA and TAVR to follow CAD intervention. ? Higinio Bacon, FLATTENING MACHINE OPERATOR.KEE [facility] CNOVon 04-13-2019 CNOV Office Visit (AGVASACC) ELIAS SHAH ([id number]) 1940 M Date Time Provider Department 04/13/19 [...] 13, 2019 TIME: 1:46 PM PAGER/CONTACT #: [id number] 1. 8 sec 2. 7.3 sec 3. [...] call us if you have any concerns/questions: [phone] OLEKSANDR Albrecht MD 04/13/2019 3:22 PM Signed Elias Shah is an 78 year old man referred for evaluation of symptomatic severe aortic stenosis and for consideration for SAVR versus TAVR. He was admitted to [facility] in November with acute illness due [...] had further evaluation by Dr. Ann of [place] cardiology. Left heart catheterization shows no significant [...] HERNIA 12/04/2018 after bowel perforation done at [facility] Dr. Young REVIEW OF SYSTEMS: GENERAL: [...] Rivers MD . Referring Provider: GERALD ANN [[id number]] Allergies As of Date: 04/13/2019 (No Known [...] anemia [D62] Order(s):CREATININE BLD [SQCRET] Order #: [id number] FUTURE CTA CHEST (GATED) WO/W IVCON [[id number]] Order #: [id number] FUTURE CTA ABD/PEL W IVCON [[id number]] Order #: [id number] FUTURE IRON + TIBC [SQIRON] Order #: [id number] FUTURE US CAROTID ARTERIES [facility] [[id number]] Order #: [id number] FUTURE FERRITIN BLD [SQFERR] Order #: [id number] FUTURE Prescriptions as of 04/13/2019 Sig: LACTOBACILLUS ACIDOPH-LACTASE* Take by mouth twice daily. ACETAMINOPHEN 500 MG CAPSULE Take 2 capsules by mouth twic* AMLODIPINE 5 MG TABLET Take 5 mg by mouth once daily. CARVEDILOL 25 MG TABLET Take 25 mg by mouth three ridge* FLUTICASONE PROPIONATE 50 MCG* Use 1 [place] in each nostril o* LOPERAMIDE 2 MG [...] call us if you have any concerns/questions: [phone] Milad Paniagua APRN.[employer] Visit Notes: >> Brook (Resource Manager) Piscitani ThuApril 13, 2019 1:46 PM Status: Signed CARDIAC REHAB 5 METER WALK TEST SERVICE DATE: 04/13/2019 SERVICE TIME: 1346 ASSESSMENT: SIGNATURE: Brook Sweeney LPN PATIENT NAME: Elias Shah DATE: April 13, 2019 TIME: 1:46 PM PAGER/CONTACT #: [id number] 1. 8 sec 2. 7.3 sec 3. 7.2 sec Brook Sweeney AMA Level of Service: NEW PATIENT VISIT LEVEL 5 [[id number]] Letter Text Encounter Status:Closed by WAYNE RIVERS MD on 04/13/19 [facility] HISTORY PHYSICALon HISTORY PHYSICAL HNO ID: [id number] Author: Wayne Rivers Service: ? Author Type: Physician Type: HANDP Filed: 04/13/2019 3:22 PM Note Text: Elias Shah is an 78 year old man referred for evaluation of symptomatic severe aortic stenosis and for consideration for SAVR versus TAVR. He was admitted to [facility] in November with acute illness due [...] had further evaluation by Dr. Ann of [place] cardiology. Left heart catheterization shows no significant [...] HERNIA 12/04/2018 after bowel perforation done at [facility] Dr. Young REVIEW OF SYSTEMS: GENERAL: [...] to follow. Wayne Rivers MD . [facility] Basic Metabolic Panelon 11-24 Anion gap molar conc 6 Normal [facility] [employer] [facility] Comment on above: Performed By: #### H EMDF, NH33, PT, CMP3, LIPA4, CK3, TROPN, LACT3, MDIFF, PCAL #### [facility] [address] [place] [address] Calcium mass conc 8.0 mg/dL Low 8.4-10.4 [facility] Comment on above: Performed By: #### H EMDF, NH33, PT, CMP3, LIPA4, CK3, TROPN, LACT3, MDIFF, PCAL #### [place] [address] [address] [place], [place] CO2 molar conc 26 mmol/L Normal 22-30 [facility] Comment on above: Performed By: #### H EMDF, NH33, PT, CMP3, LIPA4, CK3, TROPN, LACT3, MDIFF, PCAL #### [place] [address] [address] [place], [place] Glucose mass conc 98 mg/dL Normal 70-100 [facility] Comment on above: Performed By: #### H EMDF, NH33, PT, CMP3, LIPA4, CK3, TROPN, LACT3, MDIFF, PCAL #### [address] Urea nitrogen mass conc 19 mg/dL Normal 7-20 [facility] Comment on above: Performed By: #### H EMDF, NH33, PT, CMP3, LIPA4, CK3, TROPN, LACT3, MDIFF, PCAL #### [address] [place] [address] [address], [place] Creatinine mass conc 1.19 mg/dL Normal 0.52-1.25 [facility] Comment on above: Performed By: #### H EMDF, NH33, PT, CMP3, LIPA4, CK3, TROPN, LACT3, MDIFF, PCAL #### [address] [place] [address] [address] [place], [place] GFR/1.73 sq M predicted among blacks MDRD vol rate/area (S/P/Bld) mL/min/{1.73_m2} Normal >60 [facility] Comment on above: Performed By: #### H EMDF, NH33, PT, CMP3, LIPA4, CK3, TROPN, LACT3, MDIFF, PCAL #### [place] [address] [place], [place] GFR/1.73 sq M predicted among non-blacks MDRD vol rate/area (S/P/Bld) 58.7 mL/min/{1.73_m2} Normal >60 [facility] Comment on above: Result Comment: Sour ce- MDRD equation with creatinine calibration to IDMS(NKDEP) eGFR not recommended for drug dose adjustment Performed By: #### H EMDF, NH33, PT, CMP3, LIPA4, CK3, TROPN, LACT3, MDIFF, PCAL #### [address] [address] [address] Potassium molar conc 4.0 mmol/L Normal 3.5-5.1 [facility] Comment on above: Performed By: #### H EMDF, NH33, PT, CMP3, LIPA4, CK3, TROPN, LACT3, MDIFF, PCAL #### [address] [place] [address] [address], [place] Chloride molar conc 107 mmol/L Normal 98-107 [facility] Comment on above: Performed By: #### H EMDF, NH33, PT, CMP3, LIPA4, CK3, TROPN, LACT3, MDIFF, PCAL #### [address] [address] Sodium molar conc 139 mmol/L Normal 135-145 [facility] Comment on above: Performed By: #### H EMDF, NH33, PT, CMP3, LIPA4, CK3, TROPN, LACT3, MDIFF, PCAL #### [place] [address] [address] [place], [place] Hemogram w/ Autodiffon 12-14 Abs Baso Cnt 0.0 10*3/uL Normal 0.0-0.2 [facility] Comment on above: Performed By: #### H EMDF, NH33, PT, CMP3, LIPA4, CK3, TROPN, LACT3, MDIFF, PCAL #### [place] [address] [place], [place] Abs Neutrophile Cnt 3.6 10*3/uL Normal 1.8-7.0 [facility] Comment on above: Performed By: #### H EMDF, NH33, PT, CMP3, LIPA4, CK3, TROPN, LACT3, MDIFF, PCAL #### [address] Basophils/100 WBC (Bld) 0.4 % Normal 0.0-2.0 [facility] Comment on above: Performed By: #### H EMDF, NH33, PT, CMP3, LIPA4, CK3, TROPN, LACT3, MDIFF, PCAL #### [address] Eosinophils #/vol (Bld) 0.1 10*3/uL Normal 0.0-0.5 [facility] Comment on above: Performed By: #### H EMDF, NH33, PT, CMP3, LIPA4, CK3, TROPN, LACT3, MDIFF, PCAL #### [address] Eosinophils/100 WBC (Bld) 1.3 % Normal 1.0-6.0 [facility] Comment on above: Performed By: #### H EMDF, NH33, PT, CMP3, LIPA4, CK3, TROPN, LACT3, MDIFF, PCAL #### [address] Erythrocyte distribution width Ratio (RBC) 15.2 % High 11.5-14.5 [facility] Comment on above: Performed By: #### H EMDF, NH33, PT, CMP3, LIPA4, CK3, TROPN, LACT3, MDIFF, PCAL #### [address] Granulocytes/100 WBC (Bld) 55.8 % Normal 40.0-80.0 [facility] Comment on above: Performed By: #### H EMDF, NH33, PT, CMP3, LIPA4, CK3, TROPN, LACT3, MDIFF, PCAL #### [address] Hematocrit Volume Fraction (Bld) 26.7 % Low 40.0-52.0 [facility] Comment on above: Performed By: #### H EMDF, NH33, PT, CMP3, LIPA4, CK3, TROPN, LACT3, MDIFF, PCAL #### [address] Hemoglobin mass conc (Bld) 8.8 g/dL Low 13.0-18.0 [facility] Comment on above: Performed By: #### H EMDF, NH33, PT, CMP3, LIPA4, CK3, TROPN, LACT3, MDIFF, PCAL #### [address] Lymphocytes #/vol (Bld) 1.9 10*3/uL Normal 1.0-4.3 [facility] Comment on above: Performed By: #### H EMDF, NH33, PT, CMP3, LIPA4, CK3, TROPN, LACT3, MDIFF, PCAL #### [address] Lymphocytes/100 WBC (Bld) 29.6 % Normal 20.0-40.0 [facility] Comment on above: Performed By: #### H EMDF, NH33, PT, CMP3, LIPA4, CK3, TROPN, LACT3, MDIFF, PCAL #### [address] MCH Entitic mass (RBC) 28.6 pg Normal 26.0-34.0 [facility] Comment on above: Performed By: #### H EMDF, NH33, PT, CMP3, LIPA4, CK3, TROPN, LACT3, MDIFF, PCAL #### [address] MCHC mass conc (RBC) 32.9 % Normal 32.0-36.0 [facility] Comment on above: Performed By: #### H EMDF, NH33, PT, CMP3, LIPA4, CK3, TROPN, LACT3, MDIFF, PCAL #### [address] MCV Entitic volume (RBC) 86.9 fL Normal 80.0-98.0 [facility] Comment on above: Performed By: #### H EMDF, NH33, PT, CMP3, LIPA4, CK3, TROPN, LACT3, MDIFF, PCAL #### [address] Monocytes #/vol (Bld) 0.8 10*3/uL Normal 0.0-0.8 [facility] Comment on above: Performed By: #### H EMDF, NH33, PT, CMP3, LIPA4, CK3, TROPN, LACT3, MDIFF, PCAL #### [address] Monocytes/100 WBC (Bld) 12.9 % High 2.0-10.0 [facility] Comment on above: Performed By: #### H EMDF, NH33, PT, CMP3, LIPA4, CK3, TROPN, LACT3, MDIFF, PCAL #### [address] Platelet mean volume Entitic volume (Bld) 8.7 fL Normal 7.4-10.4 [facility] Comment on above: Performed By: #### H EMDF, NH33, PT, CMP3, LIPA4, CK3, TROPN, LACT3, MDIFF, PCAL #### [address] Platelets #/vol (Bld) 211 10*3/uL Normal 140-440 [facility] Comment on above: Performed By: #### H EMDF, NH33, PT, CMP3, LIPA4, CK3, TROPN, LACT3, MDIFF, PCAL #### [address] RBC #/vol (Bld) 3.07 10*6/uL Low 4.40-5.90 [facility] Comment on above: Performed By: #### H EMDF, NH33, PT, CMP3, LIPA4, CK3, TROPN, LACT3, MDIFF, PCAL #### [address] WBC #/vol (Bld) 6.4 10*3/uL Normal 3.6-10.7 [facility] Comment on above: Performed By: #### H EMDF, NH33, PT, CMP3, LIPA4, CK3, TROPN, LACT3, MDIFF, PCAL #### [address] [address] [address] [place], [place] Basic Metabolic Panelon - Anion gap molar conc 6 Normal [facility] Comment on above: Performed By: #### H EMDF, NH33, PT, CMP3, LIPA4, CK3, TROPN, LACT3, MDIFF, PCAL #### [address] [address] [place] Calcium mass conc 8.0 mg/dL Low 8.4-10.4 [facility] Comment on above: Performed By: #### H EMDF, NH33, PT, CMP3, LIPA4, CK3, TROPN, LACT3, MDIFF, PCAL #### [address] [address] [place] CO2 molar conc 25 mmol/L Normal 22-30 [facility] Comment on above: Performed By: #### H EMDF, NH33, PT, CMP3, LIPA4, CK3, TROPN, LACT3, MDIFF, PCAL #### [address] [address] [address], [place] Glucose mass conc 100 mg/dL Normal 70-100 [facility] Comment on above: Performed By: #### H EMDF, NH33, PT, CMP3, LIPA4, CK3, TROPN, LACT3, MDIFF, PCAL #### [address] [address] [address] Urea nitrogen mass conc 24 mg/dL High 7-20 [facility] Comment on above: Performed By: #### H EMDF, NH33, PT, CMP3, LIPA4, CK3, TROPN, LACT3, MDIFF, PCAL #### [address] [place] [address] Creatinine mass conc 1.35 mg/dL High 0.52-1.25 [facility] Comment on above: Performed By: #### H EMDF, NH33, PT, CMP3, LIPA4, CK3, TROPN, LACT3, MDIFF, PCAL #### [facility] [address] [place] [address] GFR/1.73 sq M predicted among blacks MDRD vol rate/area (S/P/Bld) mL/min/{1.73_m2} Normal >60 [facility] Comment on above: Performed By: #### H EMDF, NH33, PT, CMP3, LIPA4, CK3, TROPN, LACT3, MDIFF, PCAL #### [address] [place] [address] GFR/1.73 sq M predicted among non-blacks MDRD vol rate/area (S/P/Bld) 50.8 mL/min/{1.73_m2} Normal >60 [facility] Comment on above: Result Comment: Sour ce- MDRD equation with creatinine calibration to IDMS(NKDEP) eGFR not recommended for drug dose adjustment Performed By: #### H EMDF, NH33, PT, CMP3, LIPA4, CK3, TROPN, LACT3, MDIFF, PCAL #### [address] [place] [address] Potassium molar conc 3.6 mmol/L Normal 3.5-5.1 [facility] Comment on above: Performed By: #### H EMDF, NH33, PT, CMP3, LIPA4, CK3, TROPN, LACT3, MDIFF, PCAL #### [address] [address] [place] [address] Chloride molar conc 109 mmol/L High 98-107 [facility] Comment on above: Performed By: #### H EMDF, NH33, PT, CMP3, LIPA4, CK3, TROPN, LACT3, MDIFF, PCAL #### [address] [place] [address] Sodium molar conc 141 mmol/L Normal 135-145 [facility] Comment on above: Performed By: #### H EMDF, NH33, PT, CMP3, LIPA4, CK3, TROPN, LACT3, MDIFF, PCAL #### [address] Hemogram w/ Autodiffon 12-13 Abs Baso Cnt 0.0 10*3/uL Normal 0.0-0.2 [facility] Comment on above: Performed By: #### H EMDF, NH33, PT, CMP3, LIPA4, CK3, TROPN, LACT3, MDIFF, PCAL #### [address] Abs Neutrophile Cnt 3.5 10*3/uL Normal 1.8-7.0 [facility] Comment on above: Performed By: #### H EMDF, NH33, PT, CMP3, LIPA4, CK3, TROPN, LACT3, MDIFF, PCAL #### [address] Basophils/100 WBC (Bld) 0.4 % Normal 0.0-2.0 [facility] Comment on above: Performed By: #### H EMDF, NH33, PT, CMP3, LIPA4, CK3, TROPN, LACT3, MDIFF, PCAL #### [address] Eosinophils #/vol (Bld) 0.1 10*3/uL Normal 0.0-0.5 [facility] Comment on above: Performed By: #### H EMDF, NH33, PT, CMP3, LIPA4, CK3, TROPN, LACT3, MDIFF, PCAL #### [address] Eosinophils/100 WBC (Bld) 2.1 % Normal 1.0-6.0 [facility] Comment on above: Performed By: #### H EMDF, NH33, PT, CMP3, LIPA4, CK3, TROPN, LACT3, MDIFF, PCAL #### [address] Erythrocyte distribution width Ratio (RBC) 14.8 % High 11.5-14.5 [facility] Comment on above: Performed By: #### H EMDF, NH33, PT, CMP3, LIPA4, CK3, TROPN, LACT3, MDIFF, PCAL #### [address] Granulocytes/100 WBC (Bld) 57.7 % Normal 40.0-80.0 [facility] Comment on above: Performed By: #### H EMDF, NH33, PT, CMP3, LIPA4, CK3, TROPN, LACT3, MDIFF, PCAL #### [address] Hematocrit Volume Fraction (Bld) 26.4 % Low 40.0-52.0 [facility] Comment on above: Performed By: #### H EMDF, NH33, PT, CMP3, LIPA4, CK3, TROPN, LACT3, MDIFF, PCAL #### [address] Hemoglobin mass conc (Bld) 8.6 g/dL Low 13.0-18.0 [facility] Comment on above: Performed By: #### H EMDF, NH33, PT, CMP3, LIPA4, CK3, TROPN, LACT3, MDIFF, PCAL #### [address] Lymphocytes #/vol (Bld) 1.7 10*3/uL Normal 1.0-4.3 [facility] Comment on above: Performed By: #### H EMDF, NH33, PT, CMP3, LIPA4, CK3, TROPN, LACT3, MDIFF, PCAL #### [address] Lymphocytes/100 WBC (Bld) 27.9 % Normal 20.0-40.0 [facility] Comment on above: Performed By: #### H EMDF, NH33, PT, CMP3, LIPA4, CK3, TROPN, LACT3, MDIFF, PCAL #### [address] MCH Entitic mass (RBC) 28.7 pg Normal 26.0-34.0 [facility] Comment on above: Performed By: #### H EMDF, NH33, PT, CMP3, LIPA4, CK3, TROPN, LACT3, MDIFF, PCAL #### [address] MCHC mass conc (RBC) 32.7 % Normal 32.0-36.0 [facility] Comment on above: Performed By: #### H EMDF, NH33, PT, CMP3, LIPA4, CK3, TROPN, LACT3, MDIFF, PCAL #### [address] MCV Entitic volume (RBC) 87.8 fL Normal 80.0-98.0 [facility] Comment on above: Performed By: #### H EMDF, NH33, PT, CMP3, LIPA4, CK3, TROPN, LACT3, MDIFF, PCAL #### [address] Monocytes #/vol (Bld) 0.7 10*3/uL Normal 0.0-0.8 [facility] Comment on above: Performed By: #### H EMDF, NH33, PT, CMP3, LIPA4, CK3, TROPN, LACT3, MDIFF, PCAL #### [address] Monocytes/100 WBC (Bld) 11.9 % High 2.0-10.0 [facility] Comment on above: Performed By: #### H EMDF, NH33, PT, CMP3, LIPA4, CK3, TROPN, LACT3, MDIFF, PCAL #### [address] Platelet mean volume Entitic volume (Bld) 8.6 fL Normal 7.4-10.4 [facility] Comment on above: Performed By: #### H EMDF, NH33, PT, CMP3, LIPA4, CK3, TROPN, LACT3, MDIFF, PCAL #### [address] [place] [address] [place], [place] Platelets #/vol (Bld) 186 10*3/uL Normal 140-440 [facility] Comment on above: Performed By: #### H EMDF, NH33, PT, CMP3, LIPA4, CK3, TROPN, LACT3, MDIFF, PCAL #### [address] RBC #/vol (Bld) 3.01 10*6/uL Low 4.40-5.90 [facility] Comment on above: Performed By: #### H EMDF, NH33, PT, CMP3, LIPA4, CK3, TROPN, LACT3, MDIFF, PCAL #### [address] WBC #/vol (Bld) 6.0 10*3/uL Normal 3.6-10.7 [facility] Comment on above: Performed By: #### H EMDF, NH33, PT, CMP3, LIPA4, CK3, TROPN, LACT3, MDIFF, PCAL #### [address] Basic Metabolic Panelon 01-2 Anion gap molar conc 9 Normal [facility] Comment on above: Performed By: #### H EMDF, NH33, PT, CMP3, LIPA4, CK3, TROPN, LACT3, MDIFF, PCAL #### [address] Calcium mass conc 8.2 mg/dL Low 8.4-10.4 [facility] Comment on above: Performed By: #### H EMDF, NH33, PT, CMP3, LIPA4, CK3, TROPN, LACT3, MDIFF, PCAL #### [address] CO2 molar conc 28 mmol/L Normal 22-30 [facility] Comment on above: Performed By: #### H EMDF, NH33, PT, CMP3, LIPA4, CK3, TROPN, LACT3, MDIFF, PCAL #### [address] Creatinine mass conc 1.43 mg/dL High 0.52-1.25 [facility] Comment on above: Performed By: #### H EMDF, NH33, PT, CMP3, LIPA4, CK3, TROPN, LACT3, MDIFF, PCAL #### [address] GFR/1.73 sq M predicted among blacks MDRD vol rate/area (S/P/Bld) 57.6 mL/min/{1.73_m2} Normal >60 [facility] Comment on above: Performed By: #### H EMDF, NH33, PT, CMP3, LIPA4, CK3, TROPN, LACT3, MDIFF, PCAL #### [address] GFR/1.73 sq M predicted among non-blacks MDRD vol rate/area (S/P/Bld) 47.5 mL/min/{1.73_m2} Normal >60 [facility] Comment on above: Result Comment: Sour ce- MDRD equation with creatinine calibration to IDMS(NKDEP) eGFR not recommended for drug dose adjustment Performed By: #### H EMDF, NH33, PT, CMP3, LIPA4, CK3, TROPN, LACT3, MDIFF, PCAL #### [address] Glucose mass conc 124 mg/dL High 70-100 [facility] Comment on above: Performed By: #### H EMDF, NH33, PT, CMP3, LIPA4, CK3, TROPN, LACT3, MDIFF, PCAL #### [address] Urea nitrogen mass conc 30 mg/dL High 7-20 [facility] Comment on above: Performed By: #### H EMDF, NH33, PT, CMP3, LIPA4, CK3, TROPN, LACT3, MDIFF, PCAL #### [address] Chloride molar conc 107 mmol/L Normal 98-107 [facility] Comment on above: Performed By: #### H EMDF, NH33, PT, CMP3, LIPA4, CK3, TROPN, LACT3, MDIFF, PCAL #### [address] Potassium molar conc 3.4 mmol/L Low 3.5-5.1 [facility] Comment on above: Performed By: #### H EMDF, NH33, PT, CMP3, LIPA4, CK3, TROPN, LACT3, MDIFF, PCAL #### [address] Sodium molar conc 144 mmol/L Normal 135-145 [facility] Comment on above: Performed By: #### H EMDF, NH33, PT, CMP3, LIPA4, CK3, TROPN, LACT3, MDIFF, PCAL #### [address] Hemogram w/ Autodiffon 12-12 Abs Baso Cnt 0.0 10*3/uL Normal 0.0-0.2 [facility] Comment on above: Performed By: #### H EMDF, NH33, PT, CMP3, LIPA4, CK3, TROPN, LACT3, MDIFF, PCAL #### [address] Abs Neutrophile Cnt 4.5 10*3/uL Normal 1.8-7.0 [facility] Comment on above: Performed By: #### H EMDF, NH33, PT, CMP3, LIPA4, CK3, TROPN, LACT3, MDIFF, PCAL #### [address] Basophils/100 WBC (Bld) 0.3 % Normal 0.0-2.0 [facility] Comment on above: Performed By: #### H EMDF, NH33, PT, CMP3, LIPA4, CK3, TROPN, LACT3, MDIFF, PCAL #### [address] Eosinophils #/vol (Bld) 0.2 10*3/uL Normal 0.0-0.5 [facility] Comment on above: Performed By: #### H EMDF, NH33, PT, CMP3, LIPA4, CK3, TROPN, LACT3, MDIFF, PCAL #### [address] Eosinophils/100 WBC (Bld) 2.3 % Normal 1.0-6.0 [facility] Comment on above: Performed By: #### H EMDF, NH33, PT, CMP3, LIPA4, CK3, TROPN, LACT3, MDIFF, PCAL #### [address] Erythrocyte distribution width Ratio (RBC) 15.0 % High 11.5-14.5 [facility] Comment on above: Performed By: #### H EMDF, NH33, PT, CMP3, LIPA4, CK3, TROPN, LACT3, MDIFF, PCAL #### [address] Granulocytes/100 WBC (Bld) 62.5 % Normal 40.0-80.0 [facility] Comment on above: Performed By: #### H EMDF, NH33, PT, CMP3, LIPA4, CK3, TROPN, LACT3, MDIFF, PCAL #### [address] Hematocrit Volume Fraction (Bld) 29.8 % Low 40.0-52.0 [facility] Comment on above: Performed By: #### H EMDF, NH33, PT, CMP3, LIPA4, CK3, TROPN, LACT3, MDIFF, PCAL #### [address] Hemoglobin mass conc (Bld) 10.0 g/dL Low 13.0-18.0 [facility] Comment on above: Performed By: #### H EMDF, NH33, PT, CMP3, LIPA4, CK3, TROPN, LACT3, MDIFF, PCAL #### [address] Lymphocytes #/vol (Bld) 1.8 10*3/uL Normal 1.0-4.3 [facility] Comment on above: Performed By: #### H EMDF, NH33, PT, CMP3, LIPA4, CK3, TROPN, LACT3, MDIFF, PCAL #### [address] Lymphocytes/100 WBC (Bld) 25.1 % Normal 20.0-40.0 [facility] Comment on above: Performed By: #### H EMDF, NH33, PT, CMP3, LIPA4, CK3, TROPN, LACT3, MDIFF, PCAL #### [address] MCH Entitic mass (RBC) 29.0 pg Normal 26.0-34.0 [facility] Comment on above: Performed By: #### H EMDF, NH33, PT, CMP3, LIPA4, CK3, TROPN, LACT3, MDIFF, PCAL #### [address] MCHC mass conc (RBC) 33.4 % Normal 32.0-36.0 [facility] Comment on above: Performed By: #### H EMDF, NH33, PT, CMP3, LIPA4, CK3, TROPN, LACT3, MDIFF, PCAL #### [address] MCV Entitic volume (RBC) 86.8 fL Normal 80.0-98.0 [facility] Comment on above: Performed By: #### H EMDF, NH33, PT, CMP3, LIPA4, CK3, TROPN, LACT3, MDIFF, PCAL #### [address] Monocytes #/vol (Bld) 0.7 10*3/uL Normal 0.0-0.8 [facility] Comment on above: Performed By: #### H EMDF, NH33, PT, CMP3, LIPA4, CK3, TROPN, LACT3, MDIFF, PCAL #### [address] Monocytes/100 WBC (Bld) 9.8 % Normal 2.0-10.0 [facility] Comment on above: Performed By: #### H EMDF, NH33, PT, CMP3, LIPA4, CK3, TROPN, LACT3, MDIFF, PCAL #### [address] Platelet mean volume Entitic volume (Bld) 8.6 fL Normal 7.4-10.4 [facility] Comment on above: Performed By: #### H EMDF, NH33, PT, CMP3, LIPA4, CK3, TROPN, LACT3, MDIFF, PCAL #### [address] Platelets #/vol (Bld) 216 10*3/uL Normal 140-440 [facility] Comment on above: Performed By: #### H EMDF, NH33, PT, CMP3, LIPA4, CK3, TROPN, LACT3, MDIFF, PCAL #### [address] RBC #/vol (Bld) 3.43 10*6/uL Low 4.40-5.90 [facility] Comment on above: Performed By: #### H EMDF, NH33, PT, CMP3, LIPA4, CK3, TROPN, LACT3, MDIFF, PCAL #### [address] WBC #/vol (Bld) 7.2 10*3/uL Normal 3.6-10.7 [facility] Comment on above: Performed By: #### H EMDF, NH33, PT, CMP3, LIPA4, CK3, TROPN, LACT3, MDIFF, PCAL #### [address] [place] Magnesiumon 12-12-2018 Magnesium mass conc 1.8 mg/dL Normal 1.6-2.3 [facility] Comment on above: Performed By: #### H EMDF, NH33, PT, CMP3, LIPA4, CK3, TROPN, LACT3, MDIFF, PCAL #### [address] [address] [place], [place] Basic Metabolic Panelon 11-23 Anion gap molar conc 6 Normal [facility] Comment on above: Performed By: #### H EMDF, NH33, PT, CMP3, LIPA4, CK3, TROPN, LACT3, MDIFF, PCAL #### [address] [address] [place] Calcium mass conc 8.1 mg/dL Low 8.4-10.4 [facility] Comment on above: Performed By: #### H EMDF, NH33, PT, CMP3, LIPA4, CK3, TROPN, LACT3, MDIFF, PCAL #### [address] [address] [place] CO2 molar conc 26 mmol/L Normal 22-30 [facility] Comment on above: Performed By: #### H EMDF, NH33, PT, CMP3, LIPA4, CK3, TROPN, LACT3, MDIFF, PCAL #### [address] [address] [place] Glucose mass conc 95 mg/dL Normal 70-100 [facility] Comment on above: Performed By: #### H EMDF, NH33, PT, CMP3, LIPA4, CK3, TROPN, LACT3, MDIFF, PCAL #### [address] [address] [place], [place] Urea nitrogen mass conc 33 mg/dL High 7-20 [facility] Comment on above: Performed By: #### H EMDF, NH33, PT, CMP3, LIPA4, CK3, TROPN, LACT3, MDIFF, PCAL #### [address] [address] [place] [address] Creatinine mass conc 1.52 mg/dL High 0.52-1.25 [facility] Comment on above: Performed By: #### H EMDF, NH33, PT, CMP3, LIPA4, CK3, TROPN, LACT3, MDIFF, PCAL #### [address] [place] [address] GFR/1.73 sq M predicted among blacks MDRD vol rate/area (S/P/Bld) 53.7 mL/min/{1.73_m2} Normal >60 [facility] Comment on above: Performed By: #### H EMDF, NH33, PT, CMP3, LIPA4, CK3, TROPN, LACT3, MDIFF, PCAL #### [address] [place] [address] GFR/1.73 sq M predicted among non-blacks MDRD vol rate/area (S/P/Bld) 44.3 mL/min/{1.73_m2} Normal >60 [facility] Comment on above: Result Comment: Sour ce- MDRD equation with creatinine calibration to IDMS(NKDEP) eGFR not recommended for drug dose adjustment Performed By: #### H EMDF, NH33, PT, CMP3, LIPA4, CK3, TROPN, LACT3, MDIFF, PCAL #### [address] [place] [address] Potassium molar conc 3.5 mmol/L Normal 3.5-5.1 [facility] Comment on above: Performed By: #### H EMDF, NH33, PT, CMP3, LIPA4, CK3, TROPN, LACT3, MDIFF, PCAL #### [address] [address] [place] [address] Sodium molar conc 142 mmol/L Normal 135-145 [facility] Comment on above: Performed By: #### H EMDF, NH33, PT, CMP3, LIPA4, CK3, TROPN, LACT3, MDIFF, PCAL #### [address] [address] [place] [address] Chloride molar conc 109 mmol/L High 98-107 [facility] Comment on above: Performed By: #### H EMDF, NH33, PT, CMP3, LIPA4, CK3, TROPN, LACT3, MDIFF, PCAL #### [address] [address] Hemogram w/ Autodiffon 12-11 Abs Baso Cnt 0.0 10*3/uL Normal 0.0-0.2 [facility] Comment on above: Performed By: #### H EMDF, NH33, PT, CMP3, LIPA4, CK3, TROPN, LACT3, MDIFF, PCAL #### [address] [address] Abs Neutrophile Cnt 4.5 10*3/uL Normal 1.8-7.0 [facility] Comment on above: Performed By: #### H EMDF, NH33, PT, CMP3, LIPA4, CK3, TROPN, LACT3, MDIFF, PCAL #### [address] [address] Basophils/100 WBC (Bld) 0.3 % Normal 0.0-2.0 [facility] Comment on above: Performed By: #### H EMDF, NH33, PT, CMP3, LIPA4, CK3, TROPN, LACT3, MDIFF, PCAL #### [address] Eosinophils #/vol (Bld) 0.2 10*3/uL Normal 0.0-0.5 [facility] Comment on above: Performed By: #### H EMDF, NH33, PT, CMP3, LIPA4, CK3, TROPN, LACT3, MDIFF, PCAL #### [address] Eosinophils/100 WBC (Bld) 2.9 % Normal 1.0-6.0 [facility] Comment on above: Performed By: #### H EMDF, NH33, PT, CMP3, LIPA4, CK3, TROPN, LACT3, MDIFF, PCAL #### [address] Erythrocyte distribution width Ratio (RBC) 15.1 % High 11.5-14.5 [facility] Comment on above: Performed By: #### H EMDF, NH33, PT, CMP3, LIPA4, CK3, TROPN, LACT3, MDIFF, PCAL #### [address] Granulocytes/100 WBC (Bld) 60.8 % Normal 40.0-80.0 [facility] Comment on above: Performed By: #### H EMDF, NH33, PT, CMP3, LIPA4, CK3, TROPN, LACT3, MDIFF, PCAL #### [address] Hematocrit Volume Fraction (Bld) 27.2 % Low 40.0-52.0 [facility] Comment on above: Performed By: #### H EMDF, NH33, PT, CMP3, LIPA4, CK3, TROPN, LACT3, MDIFF, PCAL #### [address] Hemoglobin mass conc (Bld) 9.1 g/dL Low 13.0-18.0 [facility] Comment on above: Performed By: #### H EMDF, NH33, PT, CMP3, LIPA4, CK3, TROPN, LACT3, MDIFF, PCAL #### [address] Lymphocytes #/vol (Bld) 1.7 10*3/uL Normal 1.0-4.3 [facility] Comment on above: Performed By: #### H EMDF, NH33, PT, CMP3, LIPA4, CK3, TROPN, LACT3, MDIFF, PCAL #### [address] Lymphocytes/100 WBC (Bld) 22.8 % Normal 20.0-40.0 [facility] Comment on above: Performed By: #### H EMDF, NH33, PT, CMP3, LIPA4, CK3, TROPN, LACT3, MDIFF, PCAL #### [address] MCH Entitic mass (RBC) 28.9 pg Normal 26.0-34.0 [facility] Comment on above: Performed By: #### H EMDF, NH33, PT, CMP3, LIPA4, CK3, TROPN, LACT3, MDIFF, PCAL #### [address] MCHC mass conc (RBC) 33.3 % Normal 32.0-36.0 [facility] Comment on above: Performed By: #### H EMDF, NH33, PT, CMP3, LIPA4, CK3, TROPN, LACT3, MDIFF, PCAL #### [address] MCV Entitic volume (RBC) 86.8 fL Normal 80.0-98.0 [facility] Comment on above: Performed By: #### H EMDF, NH33, PT, CMP3, LIPA4, CK3, TROPN, LACT3, MDIFF, PCAL #### [address] Monocytes #/vol (Bld) 1.0 10*3/uL High 0.0-0.8 [facility] Comment on above: Performed By: #### H EMDF, NH33, PT, CMP3, LIPA4, CK3, TROPN, LACT3, MDIFF, PCAL #### [address] Monocytes/100 WBC (Bld) 13.2 % High 2.0-10.0 [facility] Comment on above: Performed By: #### H EMDF, NH33, PT, CMP3, LIPA4, CK3, TROPN, LACT3, MDIFF, PCAL #### [address] Platelet mean volume Entitic volume (Bld) 8.5 fL Normal 7.4-10.4 [facility] Comment on above: Performed By: #### H EMDF, NH33, PT, CMP3, LIPA4, CK3, TROPN, LACT3, MDIFF, PCAL #### [address] Platelets #/vol (Bld) 185 10*3/uL Normal 140-440 [facility] Comment on above: Performed By: #### H EMDF, NH33, PT, CMP3, LIPA4, CK3, TROPN, LACT3, MDIFF, PCAL #### [address] RBC #/vol (Bld) 3.14 10*6/uL Low 4.40-5.90 [facility] Comment on above: Performed By: #### H EMDF, NH33, PT, CMP3, LIPA4, CK3, TROPN, LACT3, MDIFF, PCAL #### [address] WBC #/vol (Bld) 7.4 10*3/uL Normal 3.6-10.7 [facility] Comment on above: Performed By: #### H EMDF, NH33, PT, CMP3, LIPA4, CK3, TROPN, LACT3, MDIFF, PCAL #### [address] Magnesiumon 12-11-2018 Magnesium mass conc 1.8 mg/dL Normal 1.6-2.3 [facility] Comment on above: Performed By: #### H EMDF, NH33, PT, CMP3, LIPA4, CK3, TROPN, LACT3, MDIFF, PCAL #### [address] Basic Metabolic Panelon 11-23 Anion gap molar conc 5 Normal [facility] Comment on above: Performed By: #### H EMDF, NH33, PT, CMP3, LIPA4, CK3, TROPN, LACT3, MDIFF, PCAL #### [address] Calcium mass conc 8.3 mg/dL Low 8.4-10.4 [facility] Comment on above: Performed By: #### H EMDF, NH33, PT, CMP3, LIPA4, CK3, TROPN, LACT3, MDIFF, PCAL #### [address] CO2 molar conc 29 mmol/L Normal 22-30 [facility] Comment on above: Performed By: #### H EMDF, NH33, PT, CMP3, LIPA4, CK3, TROPN, LACT3, MDIFF, PCAL #### [address] Glucose mass conc 111 mg/dL High 70-100 [facility] Comment on above: Performed By: #### H EMDF, NH33, PT, CMP3, LIPA4, CK3, TROPN, LACT3, MDIFF, PCAL #### [address] Urea nitrogen mass conc 30 mg/dL High 7-20 [facility] Comment on above: Performed By: #### H EMDF, NH33, PT, CMP3, LIPA4, CK3, TROPN, LACT3, MDIFF, PCAL #### [address] Creatinine mass conc 1.40 mg/dL High 0.52-1.25 [facility] Comment on above: Performed By: #### H EMDF, NH33, PT, CMP3, LIPA4, CK3, TROPN, LACT3, MDIFF, PCAL #### [address] GFR/1.73 sq M predicted among blacks MDRD vol rate/area (S/P/Bld) 59.0 mL/min/{1.73_m2} Normal >60 [facility] Comment on above: Performed By: #### H EMDF, NH33, PT, CMP3, LIPA4, CK3, TROPN, LACT3, MDIFF, PCAL #### [address] GFR/1.73 sq M predicted among non-blacks MDRD vol rate/area (S/P/Bld) 48.7 mL/min/{1.73_m2} Normal >60 [facility] Comment on above: Result Comment: Sour ce- MDRD equation with creatinine calibration to IDMS(NKDEP) eGFR not recommended for drug dose adjustment Performed By: #### H EMDF, NH33, PT, CMP3, LIPA4, CK3, TROPN, LACT3, MDIFF, PCAL #### [address] Chloride molar conc 107 mmol/L Normal 98-107 [facility] Comment on above: Performed By: #### H EMDF, NH33, PT, CMP3, LIPA4, CK3, TROPN, LACT3, MDIFF, PCAL #### [address] Potassium molar conc 3.5 mmol/L Normal 3.5-5.1 [facility] Comment on above: Performed By: #### H EMDF, NH33, PT, CMP3, LIPA4, CK3, TROPN, LACT3, MDIFF, PCAL #### [address] Sodium molar conc 141 mmol/L Normal 135-145 [facility] Comment on above: Performed By: #### H EMDF, NH33, PT, CMP3, LIPA4, CK3, TROPN, LACT3, MDIFF, PCAL #### [address] Hemogram w/ Autodiffon 12-10 Abs Baso Cnt 0.0 10*3/uL Normal 0.0-0.2 [facility] Comment on above: Performed By: #### H EMDF, NH33, PT, CMP3, LIPA4, CK3, TROPN, LACT3, MDIFF, PCAL #### [address] Abs Neutrophile Cnt 4.7 10*3/uL Normal 1.8-7.0 [facility] Comment on above: Performed By: #### H EMDF, NH33, PT, CMP3, LIPA4, CK3, TROPN, LACT3, MDIFF, PCAL #### [address] [address] Basophils/100 WBC (Bld) 0.5 % Normal 0.0-2.0 [facility] Comment on above: Performed By: #### H EMDF, NH33, PT, CMP3, LIPA4, CK3, TROPN, LACT3, MDIFF, PCAL #### [address] Eosinophils #/vol (Bld) 0.3 10*3/uL Normal 0.0-0.5 [facility] Comment on above: Performed By: #### H EMDF, NH33, PT, CMP3, LIPA4, CK3, TROPN, LACT3, MDIFF, PCAL #### [address] Eosinophils/100 WBC (Bld) 3.7 % Normal 1.0-6.0 [facility] Comment on above: Performed By: #### H EMDF, NH33, PT, CMP3, LIPA4, CK3, TROPN, LACT3, MDIFF, PCAL #### [address] Erythrocyte distribution width Ratio (RBC) 15.1 % High 11.5-14.5 [facility] Comment on above: Performed By: #### H EMDF, NH33, PT, CMP3, LIPA4, CK3, TROPN, LACT3, MDIFF, PCAL #### [address] Granulocytes/100 WBC (Bld) 57.9 % Normal 40.0-80.0 [facility] Comment on above: Performed By: #### H EMDF, NH33, PT, CMP3, LIPA4, CK3, TROPN, LACT3, MDIFF, PCAL #### [address] Hematocrit Volume Fraction (Bld) 31.4 % Low 40.0-52.0 [facility] Comment on above: Performed By: #### H EMDF, NH33, PT, CMP3, LIPA4, CK3, TROPN, LACT3, MDIFF, PCAL #### [address] Hemoglobin mass conc (Bld) 10.4 g/dL Low 13.0-18.0 [facility] Comment on above: Performed By: #### H EMDF, NH33, PT, CMP3, LIPA4, CK3, TROPN, LACT3, MDIFF, PCAL #### [address] Lymphocytes #/vol (Bld) 1.9 10*3/uL Normal 1.0-4.3 [facility] Comment on above: Performed By: #### H EMDF, NH33, PT, CMP3, LIPA4, CK3, TROPN, LACT3, MDIFF, PCAL #### [address] Lymphocytes/100 WBC (Bld) 23.1 % Normal 20.0-40.0 [facility] Comment on above: Performed By: #### H EMDF, NH33, PT, CMP3, LIPA4, CK3, TROPN, LACT3, MDIFF, PCAL #### [address] MCH Entitic mass (RBC) 28.7 pg Normal 26.0-34.0 [facility] Comment on above: Performed By: #### H EMDF, NH33, PT, CMP3, LIPA4, CK3, TROPN, LACT3, MDIFF, PCAL #### [address] MCHC mass conc (RBC) 33.0 % Normal 32.0-36.0 [facility] Comment on above: Performed By: #### H EMDF, NH33, PT, CMP3, LIPA4, CK3, TROPN, LACT3, MDIFF, PCAL #### [address] [place] MCV Entitic volume (RBC) 86.9 fL Normal 80.0-98.0 [facility] Comment on above: Performed By: #### H EMDF, NH33, PT, CMP3, LIPA4, CK3, TROPN, LACT3, MDIFF, PCAL #### [address] Monocytes #/vol (Bld) 1.2 10*3/uL High 0.0-0.8 [facility] Comment on above: Performed By: #### H EMDF, NH33, PT, CMP3, LIPA4, CK3, TROPN, LACT3, MDIFF, PCAL #### [address] Monocytes/100 WBC (Bld) 14.8 % High 2.0-10.0 [facility] Comment on above: Performed By: #### H EMDF, NH33, PT, CMP3, LIPA4, CK3, TROPN, LACT3, MDIFF, PCAL #### [address] Platelet mean volume Entitic volume (Bld) 8.6 fL Normal 7.4-10.4 [facility] Comment on above: Performed By: #### H EMDF, NH33, PT, CMP3, LIPA4, CK3, TROPN, LACT3, MDIFF, PCAL #### [address] Platelets #/vol (Bld) 206 10*3/uL Normal 140-440 [facility] Comment on above: Performed By: #### H EMDF, NH33, PT, CMP3, LIPA4, CK3, TROPN, LACT3, MDIFF, PCAL #### [address] RBC #/vol (Bld) 3.61 10*6/uL Low 4.40-5.90 [facility] Comment on above: Performed By: #### H EMDF, NH33, PT, CMP3, LIPA4, CK3, TROPN, LACT3, MDIFF, PCAL #### [address] [address] [place] WBC #/vol (Bld) 8.1 10*3/uL Normal 3.6-10.7 [facility] Comment on above: Performed By: #### H EMDF, NH33, PT, CMP3, LIPA4, CK3, TROPN, LACT3, MDIFF, PCAL #### [address] Magnesiumon 12-10-2018 Magnesium mass conc 1.9 mg/dL Normal 1.6-2.3 [facility] Comment on above: Performed By: #### H EMDF, NH33, PT, CMP3, LIPA4, CK3, TROPN, LACT3, MDIFF, PCAL #### [address] Basic Metabolic Panelon 11-23 Calcium mass conc 8.0 mg/dL Low 8.4-10.4 [facility] Comment on above: Performed By: #### H EMDF, NH33, PT, CMP3, LIPA4, CK3, TROPN, LACT3, MDIFF, PCAL #### [address] Glucose mass conc 128 mg/dL High 70-100 [facility] Comment on above: Performed By: #### H EMDF, NH33, PT, CMP3, LIPA4, CK3, TROPN, LACT3, MDIFF, PCAL #### [address] Anion gap molar conc 5 Normal [facility] Comment on above: Performed By: #### H EMDF, NH33, PT, CMP3, LIPA4, CK3, TROPN, LACT3, MDIFF, PCAL #### [address] CO2 molar conc 33 mmol/L High 22-30 [facility] Comment on above: Performed By: #### H EMDF, NH33, PT, CMP3, LIPA4, CK3, TROPN, LACT3, MDIFF, PCAL #### [address] Creatinine mass conc 1.43 mg/dL High 0.52-1.25 [facility] Comment on above: Performed By: #### H EMDF, NH33, PT, CMP3, LIPA4, CK3, TROPN, LACT3, MDIFF, PCAL #### [address] GFR/1.73 sq M predicted among blacks MDRD vol rate/area (S/P/Bld) 57.6 mL/min/{1.73_m2} Normal >60 [facility] Comment on above: Performed By: #### H EMDF, NH33, PT, CMP3, LIPA4, CK3, TROPN, LACT3, MDIFF, PCAL #### [address] GFR/1.73 sq M predicted among non-blacks MDRD vol rate/area (S/P/Bld) 47.5 mL/min/{1.73_m2} Normal >60 [facility] Comment on above: Result Comment: Sour ce- MDRD equation with creatinine calibration to IDMS(NKDEP) eGFR not recommended for drug dose adjustment Performed By: #### H EMDF, NH33, PT, CMP3, LIPA4, CK3, TROPN, LACT3, MDIFF, PCAL #### [address] Urea nitrogen mass conc 37 mg/dL High 7-20 [facility] Comment on above: Performed By: #### H EMDF, NH33, PT, CMP3, LIPA4, CK3, TROPN, LACT3, MDIFF, PCAL #### [address] Potassium molar conc 3.3 mmol/L Low 3.5-5.1 [facility] Comment on above: Performed By: #### H EMDF, NH33, PT, CMP3, LIPA4, CK3, TROPN, LACT3, MDIFF, PCAL #### [facility] [address] [place] [address] Chloride molar conc 107 mmol/L Normal 98-107 [facility] Comment on above: Performed By: #### H EMDF, NH33, PT, CMP3, LIPA4, CK3, TROPN, LACT3, MDIFF, PCAL #### [facility] [address] [place] [address] Sodium molar conc 144 mmol/L Normal 135-145 [facility] Comment on above: Performed By: #### H EMDF, NH33, PT, CMP3, LIPA4, CK3, TROPN, LACT3, MDIFF, PCAL #### [facility] [address] [place] [address] CR Abdomen APon 12-09-2018 CR Abdomen AP Patient Name: ELIAS SHAH Diagnostic Radiology Exam Date/Time 12/09/2018 08:27:17 EST Exam CR Abdomen AP Ordering Physician JIM MILLER Accession Number [id number] CPT4 Codes 70192 () Reason For Exam ileus Report Indication: [...] Transcribed Date and Time: 12/09/2018 11:38 Normal [facility] Hemogram w/ Autodiffon 12-09 Abs Baso Cnt 0.0 10*3/uL Normal 0.0-0.2 [facility] Comment on above: Performed By: #### H EMDF, NH33, PT, CMP3, LIPA4, CK3, TROPN, LACT3, MDIFF, PCAL #### [address] Abs Neutrophile Cnt 4.0 10*3/uL Normal 1.8-7.0 [facility] Comment on above: Performed By: #### H EMDF, NH33, PT, CMP3, LIPA4, CK3, TROPN, LACT3, MDIFF, PCAL #### [address] Basophils/100 WBC (Bld) 0.2 % Normal 0.0-2.0 [facility] Comment on above: Performed By: #### H EMDF, NH33, PT, CMP3, LIPA4, CK3, TROPN, LACT3, MDIFF, PCAL #### [address] Eosinophils #/vol (Bld) 0.2 10*3/uL Normal 0.0-0.5 [facility] Comment on above: Performed By: #### H EMDF, NH33, PT, CMP3, LIPA4, CK3, TROPN, LACT3, MDIFF, PCAL #### [address] Eosinophils/100 WBC (Bld) 2.9 % Normal 1.0-6.0 [facility] Comment on above: Performed By: #### H EMDF, NH33, PT, CMP3, LIPA4, CK3, TROPN, LACT3, MDIFF, PCAL #### [address] Erythrocyte distribution width Ratio (RBC) 15.4 % High 11.5-14.5 [facility] Comment on above: Performed By: #### H EMDF, NH33, PT, CMP3, LIPA4, CK3, TROPN, LACT3, MDIFF, PCAL #### [address] [id number] Granulocytes/100 WBC (Bld) 55.9 % Normal 40.0-80.0 [facility] Comment on above: Performed By: #### H EMDF, NH33, PT, CMP3, LIPA4, CK3, TROPN, LACT3, MDIFF, PCAL #### [address] Hematocrit Volume Fraction (Bld) 28.7 % Low 40.0-52.0 [facility] Comment on above: Performed By: #### H EMDF, NH33, PT, CMP3, LIPA4, CK3, TROPN, LACT3, MDIFF, PCAL #### [address] Hemoglobin mass conc (Bld) 9.4 g/dL Low 13.0-18.0 [facility] Comment on above: Performed By: #### H EMDF, NH33, PT, CMP3, LIPA4, CK3, TROPN, LACT3, MDIFF, PCAL #### [address] Lymphocytes #/vol (Bld) 1.6 10*3/uL Normal 1.0-4.3 [facility] Comment on above: Performed By: #### H EMDF, NH33, PT, CMP3, LIPA4, CK3, TROPN, LACT3, MDIFF, PCAL #### [address] Lymphocytes/100 WBC (Bld) 23.2 % Normal 20.0-40.0 [facility] Comment on above: Performed By: #### H EMDF, NH33, PT, CMP3, LIPA4, CK3, TROPN, LACT3, MDIFF, PCAL #### [address] MCH Entitic mass (RBC) 28.6 pg Normal 26.0-34.0 [facility] Comment on above: Performed By: #### H EMDF, NH33, PT, CMP3, LIPA4, CK3, TROPN, LACT3, MDIFF, PCAL #### [address] MCHC mass conc (RBC) 32.8 % Normal 32.0-36.0 [facility] Comment on above: Performed By: #### H EMDF, NH33, PT, CMP3, LIPA4, CK3, TROPN, LACT3, MDIFF, PCAL #### [address] MCV Entitic volume (RBC) 87.1 fL Normal 80.0-98.0 [facility] Comment on above: Performed By: #### H EMDF, NH33, PT, CMP3, LIPA4, CK3, TROPN, LACT3, MDIFF, PCAL #### [address] Monocytes #/vol (Bld) 1.3 10*3/uL High 0.0-0.8 [facility] Comment on above: Performed By: #### H EMDF, NH33, PT, CMP3, LIPA4, CK3, TROPN, LACT3, MDIFF, PCAL #### [address] Monocytes/100 WBC (Bld) 17.8 % High 2.0-10.0 [facility] Comment on above: Performed By: #### H EMDF, NH33, PT, CMP3, LIPA4, CK3, TROPN, LACT3, MDIFF, PCAL #### [address] Platelet mean volume Entitic volume (Bld) 8.8 fL Normal 7.4-10.4 [facility] Comment on above: Performed By: #### H EMDF, NH33, PT, CMP3, LIPA4, CK3, TROPN, LACT3, MDIFF, PCAL #### [address] Platelets #/vol (Bld) 179 10*3/uL Normal 140-440 [facility] Comment on above: Performed By: #### H EMDF, NH33, PT, CMP3, LIPA4, CK3, TROPN, LACT3, MDIFF, PCAL #### [address] [place], [place] RBC #/vol (Bld) 3.30 10*6/uL Low 4.40-5.90 [facility] Comment on above: Performed By: #### H EMDF, NH33, PT, CMP3, LIPA4, CK3, TROPN, LACT3, MDIFF, PCAL #### [address] WBC #/vol (Bld) 7.1 10*3/uL Normal 3.6-10.7 [facility] Comment on above: Performed By: #### H EMDF, NH33, PT, CMP3, LIPA4, CK3, TROPN, LACT3, MDIFF, PCAL #### [address] Magnesiumon 12-09-2018 Magnesium mass conc 2.1 mg/dL Normal 1.6-2.3 [facility] Comment on above: Performed By: #### H EMDF, NH33, PT, CMP3, LIPA4, CK3, TROPN, LACT3, MDIFF, PCAL #### [address] Phosphoruson 12-09-2018 Phosphate mass conc 2.7 mg/dL Normal 2.5-4.5 [facility] Comment on above: Performed By: #### H EMDF, NH33, PT, CMP3, LIPA4, CK3, TROPN, LACT3, MDIFF, PCAL #### [address] Uric Acidon 12-09-2018 Urate mass conc 5.7 mg/dL Normal 2.5-8.5 [facility] Comment on above: Performed By: #### H EMDF, NH33, PT, CMP3, LIPA4, CK3, TROPN, LACT3, MDIFF, PCAL #### [address] Basic Metabolic Panelon 11-23 Calcium mass conc 8.5 mg/dL Normal 8.4-10.4 [facility] Comment on above: Performed By: #### H EMDF, NH33, PT, CMP3, LIPA4, CK3, TROPN, LACT3, MDIFF, PCAL #### [address] [address] [place], [place] Glucose mass conc 83 mg/dL Normal 70-100 [facility] Comment on above: Performed By: #### H EMDF, NH33, PT, CMP3, LIPA4, CK3, TROPN, LACT3, MDIFF, PCAL #### [address] [address] [place], [place] Urea nitrogen mass conc 53 mg/dL High 7-20 [facility] Comment on above: Performed By: #### H EMDF, NH33, PT, CMP3, LIPA4, CK3, TROPN, LACT3, MDIFF, PCAL #### [address] [address] [place], [place] Anion gap molar conc 6 Normal [facility] Comment on above: Performed By: #### H EMDF, NH33, PT, CMP3, LIPA4, CK3, TROPN, LACT3, MDIFF, PCAL #### [address] [address] [place], [place] CO2 molar conc 34 mmol/L High 22-30 [facility] Comment on above: Performed By: #### H EMDF, NH33, PT, CMP3, LIPA4, CK3, TROPN, LACT3, MDIFF, PCAL #### [address] Creatinine mass conc 1.81 mg/dL High 0.52-1.25 [facility] Comment on above: Performed By: #### H EMDF, NH33, PT, CMP3, LIPA4, CK3, TROPN, LACT3, MDIFF, PCAL #### [address] [address] [place], [place] GFR/1.73 sq M predicted among blacks MDRD vol rate/area (S/P/Bld) 43.9 mL/min/{1.73_m2} Normal >60 [facility] Comment on above: Performed By: #### H EMDF, NH33, PT, CMP3, LIPA4, CK3, TROPN, LACT3, MDIFF, PCAL #### [address] GFR/1.73 sq M predicted among non-blacks MDRD vol rate/area (S/P/Bld) 36.2 mL/min/{1.73_m2} Normal >60 [facility] Comment on above: Result Comment: Sour ce- MDRD equation with creatinine calibration to IDMS(NKDEP) eGFR not recommended for drug dose adjustment Performed By: #### H EMDF, NH33, PT, CMP3, LIPA4, CK3, TROPN, LACT3, MDIFF, PCAL #### [address] Potassium molar conc 3.3 mmol/L Low 3.5-5.1 [facility] Comment on above: Performed By: #### H EMDF, NH33, PT, CMP3, LIPA4, CK3, TROPN, LACT3, MDIFF, PCAL #### [address] Chloride molar conc 105 mmol/L Normal 98-107 [facility] Comment on above: Performed By: #### H EMDF, NH33, PT, CMP3, LIPA4, CK3, TROPN, LACT3, MDIFF, PCAL #### [address] Sodium molar conc 145 mmol/L Normal 135-145 [facility] Comment on above: Performed By: #### H EMDF, NH33, PT, CMP3, LIPA4, CK3, TROPN, LACT3, MDIFF, PCAL #### [address] CR Abdomen APon 12-08-2018 CR Abdomen AP Patient Name: ELIAS SHAH Diagnostic Radiology Exam Date/Time 12/08/2018 09:33:11 EST Exam CR Abdomen AP Ordering Physician [id number] FAIRCHILD Accession Number [id number] CPT4 Codes 23067 () Reason For Exam ileus Report Indication: Possible ileus. Supine view of the abdomen and pelvis timed 09 was obtained with no prior studies available for comparison. Livia overlie the midline of the lower abdomen. [...] Transcribed Date and Time: 12/08/2018 10:18 Normal [facility] CR Chest Portableon 12-08-19 CR Chest Portable Patient Name: ELIAS SHAH Diagnostic Radiology Exam Date/Time 12/08/2018 06:59:28 EST Exam CR Chest Portable Ordering Physician KEE GARNICA HEATHER Accession Number [id number] CPT4 Codes 72728 () Reason For Exam pna Report EXAM [...] Transcribed Date and Time: 12/08/2018 7:10 Normal [facility] Hemogram w/ Autodiffon 12-08 Erythrocyte distribution width Ratio (RBC) 15.0 % High 11.5-14.5 [facility] Comment on above: Performed By: #### H EMDF, NH33, PT, CMP3, LIPA4, CK3, TROPN, LACT3, MDIFF, PCAL #### [address] [id number] Hematocrit Volume Fraction (Bld) 31.5 % Low 40.0-52.0 [facility] Comment on above: Performed By: #### H EMDF, NH33, PT, CMP3, LIPA4, CK3, TROPN, LACT3, MDIFF, PCAL #### [address] [phone] Hemoglobin mass conc (Bld) 10.3 g/dL Low 13.0-18.0 [facility] Comment on above: Performed By: #### H EMDF, NH33, PT, CMP3, LIPA4, CK3, TROPN, LACT3, MDIFF, PCAL #### [address] MCH Entitic mass (RBC) 28.5 pg Normal 26.0-34.0 [facility] Comment on above: Performed By: #### H EMDF, NH33, PT, CMP3, LIPA4, CK3, TROPN, LACT3, MDIFF, PCAL #### [address] MCHC mass conc (RBC) 32.6 % Normal 32.0-36.0 [facility] Comment on above: Performed By: #### H EMDF, NH33, PT, CMP3, LIPA4, CK3, TROPN, LACT3, MDIFF, PCAL #### [address] MCV Entitic volume (RBC) 87.3 fL Normal 80.0-98.0 [facility] Comment on above: Performed By: #### H EMDF, NH33, PT, CMP3, LIPA4, CK3, TROPN, LACT3, MDIFF, PCAL #### [address] Platelet mean volume Entitic volume (Bld) 8.7 fL Normal 7.4-10.4 [facility] Comment on above: Performed By: #### H EMDF, NH33, PT, CMP3, LIPA4, CK3, TROPN, LACT3, MDIFF, PCAL #### [address] Platelets #/vol (Bld) 202 10*3/uL Normal 140-440 [facility] Comment on above: Performed By: #### H EMDF, NH33, PT, CMP3, LIPA4, CK3, TROPN, LACT3, MDIFF, PCAL #### [address] RBC #/vol (Bld) 3.61 10*6/uL Low 4.40-5.90 [facility] Comment on above: Performed By: #### H EMDF, NH33, PT, CMP3, LIPA4, CK3, TROPN, LACT3, MDIFF, PCAL #### [address] WBC #/vol (Bld) 7.4 10*3/uL Normal 3.6-10.7 [facility] Comment on above: Performed By: #### H EMDF, NH33, PT, CMP3, LIPA4, CK3, TROPN, LACT3, MDIFF, PCAL #### [address] Magnesiumon 12-08-2018 Magnesium mass conc 2.4 mg/dL High 1.6-2.3 [facility] Comment on above: Performed By: #### H EMDF, NH33, PT, CMP3, LIPA4, CK3, TROPN, LACT3, MDIFF, PCAL #### [address] Manual Diffon 12-08-2018 Abs Neutrophile Cnt 5.5 10*3/uL Normal 2.2-8.2 [facility] Comment on above: Performed By: #### H EMDF, NH33, PT, CMP3, LIPA4, CK3, TROPN, LACT3, MDIFF, PCAL #### [address] Basophils/100 WBC (Bld) 0 % Normal 0-2 [facility] Comment on above: Performed By: #### H EMDF, NH33, PT, CMP3, LIPA4, CK3, TROPN, LACT3, MDIFF, PCAL #### [address] Comment: SLIDE SCANNED Normal [facility] Comment on above: Performed By: #### H EMDF, NH33, PT, CMP3, LIPA4, CK3, TROPN, LACT3, MDIFF, PCAL #### [address] Eosinophils #/vol (Bld) 0.1 10*3/uL Normal 0.0-0.5 [facility] Comment on above: Performed By: #### H EMDF, NH33, PT, CMP3, LIPA4, CK3, TROPN, LACT3, MDIFF, PCAL #### [address] Eosinophils/100 WBC (Bld) 1 % Normal [facility] Comment on above: Performed By: #### H EMDF, NH33, PT, CMP3, LIPA4, CK3, TROPN, LACT3, MDIFF, PCAL #### [address] Lymphocytes #/vol (Bld) 0.8 10*3/uL Low 1.1-4.5 [facility] Comment on above: Performed By: #### H EMDF, NH33, PT, CMP3, LIPA4, CK3, TROPN, LACT3, MDIFF, PCAL #### [address] Lymphocytes/100 WBC (Bld) 11 % Normal [facility] Comment on above: Performed By: #### H EMDF, NH33, PT, CMP3, LIPA4, CK3, TROPN, LACT3, MDIFF, PCAL #### [address] Monocytes #/vol (Bld) 1.0 10*3/uL Normal 0.2-1.1 [facility] Comment on above: Performed By: #### H EMDF, NH33, PT, CMP3, LIPA4, CK3, TROPN, LACT3, MDIFF, PCAL #### [address] Monocytes/100 WBC (Bld) 14 % Normal [facility] Comment on above: Performed By: #### H EMDF, NH33, PT, CMP3, LIPA4, CK3, TROPN, LACT3, MDIFF, PCAL #### [address] Ovalocytes SLIGHT Normal [facility] Comment on above: Performed By: #### H EMDF, NH33, PT, CMP3, LIPA4, CK3, TROPN, LACT3, MDIFF, PCAL #### [address] Poikilocytosis SLIGHT Normal [facility] Comment on above: Performed By: #### H EMDF, NH33, PT, CMP3, LIPA4, CK3, TROPN, LACT3, MDIFF, PCAL #### [address] RBC morphology finding Nom (Bld) ABNORMAL Normal [facility] Comment on above: Performed By: #### H EMDF, NH33, PT, CMP3, LIPA4, CK3, TROPN, LACT3, MDIFF, PCAL #### [address] Seg Neutrophils 74 % Normal [facility] Comment on above: Performed By: #### H EMDF, NH33, PT, CMP3, LIPA4, CK3, TROPN, LACT3, MDIFF, PCAL #### [address] Abs Baso Cnt 0.0 10*3/uL Normal 0.0-0.2 [facility] Comment on above: Performed By: #### H EMDF, NH33, PT, CMP3, LIPA4, CK3, TROPN, LACT3, MDIFF, PCAL #### [address] [address] [place], [place] Bands 0 % Normal 0-3 [facility] Comment on above: Performed By: #### H EMDF, NH33, PT, CMP3, LIPA4, CK3, TROPN, LACT3, MDIFF, PCAL #### [address] Cells counted 100 Normal [facility] Comment on above: Performed By: #### H EMDF, NH33, PT, CMP3, LIPA4, CK3, TROPN, LACT3, MDIFF, PCAL #### [address] [address] [place], [place] Phosphoruson 12-08-2018 Phosphate mass conc 2.8 mg/dL Normal 2.5-4.5 [facility] Comment on above: Performed By: #### H EMDF, NH33, PT, CMP3, LIPA4, CK3, TROPN, LACT3, MDIFF, PCAL #### [address] [address] [place], [place] Basic Metabolic Panelon 11-23 Anion gap molar conc 7 Normal [facility] Comment on above: Performed By: #### H EMDF, NH33, PT, CMP3, LIPA4, CK3, TROPN, LACT3, MDIFF, PCAL #### [address] Calcium mass conc 8.6 mg/dL Normal 8.4-10.4 [facility] Comment on above: Performed By: #### H EMDF, NH33, PT, CMP3, LIPA4, CK3, TROPN, LACT3, MDIFF, PCAL #### [address] [address] [place], [place] CO2 molar conc 36 mmol/L High 22-30 [facility] Comment on above: Performed By: #### H EMDF, NH33, PT, CMP3, LIPA4, CK3, TROPN, LACT3, MDIFF, PCAL #### [address] Glucose mass conc 89 mg/dL Normal 70-100 [facility] Comment on above: Performed By: #### H EMDF, NH33, PT, CMP3, LIPA4, CK3, TROPN, LACT3, MDIFF, PCAL #### [address] Urea nitrogen mass conc 75 mg/dL High 7-20 [facility] Comment on above: Performed By: #### H EMDF, NH33, PT, CMP3, LIPA4, CK3, TROPN, LACT3, MDIFF, PCAL #### [address] Creatinine mass conc 2.75 mg/dL High 0.52-1.25 [facility] Comment on above: Performed By: #### H EMDF, NH33, PT, CMP3, LIPA4, CK3, TROPN, LACT3, MDIFF, PCAL #### [address] [address] [place], [place] GFR/1.73 sq M predicted among blacks MDRD vol rate/area (S/P/Bld) 27.1 mL/min/{1.73_m2} Normal >60 [facility] Comment on above: Performed By: #### H EMDF, NH33, PT, CMP3, LIPA4, CK3, TROPN, LACT3, MDIFF, PCAL #### [address] [address] [place], [place] GFR/1.73 sq M predicted among non-blacks MDRD vol rate/area (S/P/Bld) 22.3 mL/min/{1.73_m2} Normal >60 [facility] Comment on above: Result Comment: Sour ce- MDRD equation with creatinine calibration to IDMS(NKDEP) eGFR not recommended for drug dose adjustment Performed By: #### H EMDF, NH33, PT, CMP3, LIPA4, CK3, TROPN, LACT3, MDIFF, PCAL #### [address] [place] [address] Potassium molar conc 3.3 mmol/L Low 3.5-5.1 [facility] Comment on above: Performed By: #### H EMDF, NH33, PT, CMP3, LIPA4, CK3, TROPN, LACT3, MDIFF, PCAL #### [address] [address] [place] [address] Sodium molar conc 142 mmol/L Normal 135-145 [facility] Comment on above: Performed By: #### H EMDF, NH33, PT, CMP3, LIPA4, CK3, TROPN, LACT3, MDIFF, PCAL #### [address] [address] [place] [address] Chloride molar conc 100 mmol/L Normal 98-107 [facility] Comment on above: Performed By: #### H EMDF, NH33, PT, CMP3, LIPA4, CK3, TROPN, LACT3, MDIFF, PCAL #### [address] [address] [place] [address] CR Chest Portableon 12-07-19 19 CR Chest Portable Patient Name: ELIAS SHAH Diagnostic Radiology Exam Date/Time 12/07/2018 07:13:20 EST Exam CR Chest Portable Ordering Physician KEE GARNICA HEATHER Accession Number [id number] CPT4 Codes 58538 () Reason For Exam pna Report Portable [...] Transcribed Date and Time: 12/07/2018 7:47 Normal [facility] CULTURE URINEon 12-07-2018 CULTURE URINE CULTURE URINE --> Status: F No growth (<1,000 CFU/ml). Normal [facility] Comment on above: Order Comment: Speci men Source Comment:Urine, straight catheter Performed By: #### H EMDF, NH33, PT, CMP3, LIPA4, CK3, TROPN, LACT3, MDIFF, PCAL #### [address] [phone] Hemogram w/ Autodiffon 12-07 Abs Baso Cnt 0.0 10*3/uL Normal 0.0-0.2 [facility] Comment on above: Performed By: #### H EMDF, NH33, PT, CMP3, LIPA4, CK3, TROPN, LACT3, MDIFF, PCAL #### [address] Abs Neutrophile Cnt 5.0 10*3/uL Normal 1.8-7.0 [facility] Comment on above: Performed By: #### H EMDF, NH33, PT, CMP3, LIPA4, CK3, TROPN, LACT3, MDIFF, PCAL #### [address] Basophils/100 WBC (Bld) 0.4 % Normal 0.0-2.0 [facility] Comment on above: Performed By: #### H EMDF, NH33, PT, CMP3, LIPA4, CK3, TROPN, LACT3, MDIFF, PCAL #### [address] Eosinophils #/vol (Bld) 0.0 10*3/uL Normal 0.0-0.5 [facility] Comment on above: Performed By: #### H EMDF, NH33, PT, CMP3, LIPA4, CK3, TROPN, LACT3, MDIFF, PCAL #### [address] [id number] Eosinophils/100 WBC (Bld) 0.3 % Low 1.0-6.0 [facility] Comment on above: Performed By: #### H EMDF, NH33, PT, CMP3, LIPA4, CK3, TROPN, LACT3, MDIFF, PCAL #### [address] Erythrocyte distribution width Ratio (RBC) 15.4 % High 11.5-14.5 [facility] Comment on above: Performed By: #### H EMDF, NH33, PT, CMP3, LIPA4, CK3, TROPN, LACT3, MDIFF, PCAL #### [address] Granulocytes/100 WBC (Bld) 63.5 % Normal 40.0-80.0 [facility] Comment on above: Performed By: #### H EMDF, NH33, PT, CMP3, LIPA4, CK3, TROPN, LACT3, MDIFF, PCAL #### [address] Hematocrit Volume Fraction (Bld) 32.4 % Low 40.0-52.0 [facility] Comment on above: Performed By: #### H EMDF, NH33, PT, CMP3, LIPA4, CK3, TROPN, LACT3, MDIFF, PCAL #### [address] Hemoglobin mass conc (Bld) 10.7 g/dL Low 13.0-18.0 [facility] Comment on above: Performed By: #### H EMDF, NH33, PT, CMP3, LIPA4, CK3, TROPN, LACT3, MDIFF, PCAL #### [address] Lymphocytes #/vol (Bld) 1.4 10*3/uL Normal 1.0-4.3 [facility] Comment on above: Performed By: #### H EMDF, NH33, PT, CMP3, LIPA4, CK3, TROPN, LACT3, MDIFF, PCAL #### [address] Lymphocytes/100 WBC (Bld) 18.5 % Low 20.0-40.0 [facility] Comment on above: Performed By: #### H EMDF, NH33, PT, CMP3, LIPA4, CK3, TROPN, LACT3, MDIFF, PCAL #### [address] MCH Entitic mass (RBC) 28.7 pg Normal 26.0-34.0 [facility] Comment on above: Performed By: #### H EMDF, NH33, PT, CMP3, LIPA4, CK3, TROPN, LACT3, MDIFF, PCAL #### [address] MCHC mass conc (RBC) 33.0 % Normal 32.0-36.0 [facility] Comment on above: Performed By: #### H EMDF, NH33, PT, CMP3, LIPA4, CK3, TROPN, LACT3, MDIFF, PCAL #### [address] MCV Entitic volume (RBC) 87.2 fL Normal 80.0-98.0 [facility] Comment on above: Performed By: #### H EMDF, NH33, PT, CMP3, LIPA4, CK3, TROPN, LACT3, MDIFF, PCAL #### [address] Monocytes #/vol (Bld) 1.4 10*3/uL High 0.0-0.8 [facility] Comment on above: Performed By: #### H EMDF, NH33, PT, CMP3, LIPA4, CK3, TROPN, LACT3, MDIFF, PCAL #### [address] [address] [place] Monocytes/100 WBC (Bld) 17.3 % High 2.0-10.0 [facility] Comment on above: Performed By: #### H EMDF, NH33, PT, CMP3, LIPA4, CK3, TROPN, LACT3, MDIFF, PCAL #### [address] Platelet mean volume Entitic volume (Bld) 8.5 fL Normal 7.4-10.4 [facility] Comment on above: Performed By: #### H EMDF, NH33, PT, CMP3, LIPA4, CK3, TROPN, LACT3, MDIFF, PCAL #### [address] Platelets #/vol (Bld) 217 10*3/uL Normal 140-440 [facility] Comment on above: Performed By: #### H EMDF, NH33, PT, CMP3, LIPA4, CK3, TROPN, LACT3, MDIFF, PCAL #### [address] RBC #/vol (Bld) 3.72 10*6/uL Low 4.40-5.90 [facility] Comment on above: Performed By: #### H EMDF, NH33, PT, CMP3, LIPA4, CK3, TROPN, LACT3, MDIFF, PCAL #### [address] WBC #/vol (Bld) 7.8 10*3/uL Normal 3.6-10.7 [facility] Comment on above: Performed By: #### H EMDF, NH33, PT, CMP3, LIPA4, CK3, TROPN, LACT3, MDIFF, PCAL #### [address] Magnesiumon 12-07-2018 Magnesium mass conc 2.9 mg/dL High 1.6-2.3 [facility] Comment on above: Performed By: #### H EMDF, NH33, PT, CMP3, LIPA4, CK3, TROPN, LACT3, MDIFF, PCAL #### [address] Phosphoruson 12-07-2018 Phosphate mass conc 3.2 mg/dL Normal 2.5-4.5 [facility] Comment on above: Performed By: #### H EMDF, NH33, PT, CMP3, LIPA4, CK3, TROPN, LACT3, MDIFF, PCAL #### [address] [address] [place], [place] Urinalysis,Macroon 9 Appearance Nom (U) cloudy Normal Clear [facility] Comment on above: Performed By: #### H EMDF, NH33, PT, CMP3, LIPA4, CK3, TROPN, LACT3, MDIFF, PCAL #### [address] [address] [place], [place] Bilirubin,Ur Negative Normal Negative [facility] Comment on above: Performed By: #### H EMDF, NH33, PT, CMP3, LIPA4, CK3, TROPN, LACT3, MDIFF, PCAL #### [address] Color Nom (U) red Normal Lt. Yellow [facility] Comment on above: Performed By: #### H EMDF, NH33, PT, CMP3, LIPA4, CK3, TROPN, LACT3, MDIFF, PCAL #### [address] [address] [place], [place] Glucose Ql (U) 100 mg/dL Normal Negative [facility] Comment on above: Performed By: #### H EMDF, NH33, PT, CMP3, LIPA4, CK3, TROPN, LACT3, MDIFF, PCAL #### [address] Ketone,Urine 3 + mg/dL Normal Negative [facility] Comment on above: Performed By: #### H EMDF, NH33, PT, CMP3, LIPA4, CK3, TROPN, LACT3, MDIFF, PCAL #### [address] Nitrite Ql (U) Negative Normal Negative [facility] Comment on above: Performed By: #### H EMDF, NH33, PT, CMP3, LIPA4, CK3, TROPN, LACT3, MDIFF, PCAL #### [address] Occult Blood,Ur 250 {RBC}/uL Normal Negative [facility] Comment on above: Performed By: #### H EMDF, NH33, PT, CMP3, LIPA4, CK3, TROPN, LACT3, MDIFF, PCAL #### [address] pH (U) 8.0 Normal 5.0-8.0 [facility] Comment on above: Performed By: #### H EMDF, NH33, PT, CMP3, LIPA4, CK3, TROPN, LACT3, MDIFF, PCAL #### [address] Protein mass conc (U) 75 mg/dL Normal Negative [facility] Comment on above: Performed By: #### H EMDF, NH33, PT, CMP3, LIPA4, CK3, TROPN, LACT3, MDIFF, PCAL #### [address] Specific [place],Urine 1.010 Normal 1.005-1.030 [facility] Comment on above: Performed By: #### H EMDF, NH33, PT, CMP3, LIPA4, CK3, TROPN, LACT3, MDIFF, PCAL #### [address] Urobilinogen Qn (U) NORM Normal 0-1 [facility] Comment on above: Performed By: #### H EMDF, NH33, PT, CMP3, LIPA4, CK3, TROPN, LACT3, MDIFF, PCAL #### [address] WBC #/vol (Bld) 1 + Normal Negative [facility] Comment on above: Performed By: #### H EMDF, NH33, PT, CMP3, LIPA4, CK3, TROPN, LACT3, MDIFF, PCAL #### [address] Urinalysis,Microscopicon Bacteria LM.HPF #/area (Urine sed) Moderate (6-50) Normal Negative [facility] Comment on above: Performed By: #### H EMDF, NH33, PT, CMP3, LIPA4, CK3, TROPN, LACT3, MDIFF, PCAL #### [address] Epithelial cells LM.HPF #/area (Urine sed) 0 - 2 Normal 3-5 [facility] Comment on above: Performed By: #### H EMDF, NH33, PT, CMP3, LIPA4, CK3, TROPN, LACT3, MDIFF, PCAL #### [address] [address] [place], [place] RBC LM.HPF #/area (Urine sed) 51 - 100 Normal 0-2 [facility] Comment on above: Performed By: #### H EMDF, NH33, PT, CMP3, LIPA4, CK3, TROPN, LACT3, MDIFF, PCAL #### [address] [address] [place], [place] Volume,Urine 8-12 ml Normal [facility] Comment on above: Performed By: #### H EMDF, NH33, PT, CMP3, LIPA4, CK3, TROPN, LACT3, MDIFF, PCAL #### [address] WBC LM.HPF #/area (Urine sed) 3 - 5 Normal 0-5 [facility] Comment on above: Performed By: #### H EMDF, NH33, PT, CMP3, LIPA4, CK3, TROPN, LACT3, MDIFF, PCAL #### [address] Basic Metabolic Panelon 11-23 Anion gap molar conc 6 Normal [facility] Comment on above: Performed By: #### H EMDF, NH33, PT, CMP3, LIPA4, CK3, TROPN, LACT3, MDIFF, PCAL #### [address] [address] [place] Calcium mass conc 8.6 mg/dL Normal 8.4-10.4 [facility] Comment on above: Performed By: #### H EMDF, NH33, PT, CMP3, LIPA4, CK3, TROPN, LACT3, MDIFF, PCAL #### [address] [address] [place] CO2 molar conc 37 mmol/L High 22-30 [facility] Comment on above: Performed By: #### H EMDF, NH33, PT, CMP3, LIPA4, CK3, TROPN, LACT3, MDIFF, PCAL #### [address] [address] [place] Glucose mass conc 97 mg/dL Normal 70-100 [facility] Comment on above: Performed By: #### H EMDF, NH33, PT, CMP3, LIPA4, CK3, TROPN, LACT3, MDIFF, PCAL #### [address] [address] [place] Urea nitrogen mass conc 77 mg/dL High 7-20 [facility] Comment on above: Performed By: #### H EMDF, NH33, PT, CMP3, LIPA4, CK3, TROPN, LACT3, MDIFF, PCAL #### [address] [address] [place], [place] Creatinine mass conc 3.07 mg/dL High 0.52-1.25 [facility] Comment on above: Performed By: #### H EMDF, NH33, PT, CMP3, LIPA4, CK3, TROPN, LACT3, MDIFF, PCAL #### [address] [address] [place], [place] GFR/1.73 sq M predicted among blacks MDRD vol rate/area (S/P/Bld) 23.8 mL/min/{1.73_m2} Normal >60 [facility] Comment on above: Performed By: #### H EMDF, NH33, PT, CMP3, LIPA4, CK3, TROPN, LACT3, MDIFF, PCAL #### [address] [id number] GFR/1.73 sq M predicted among non-blacks MDRD vol rate/area (S/P/Bld) 19.7 mL/min/{1.73_m2} Normal >60 [facility] Comment on above: Result Comment: Sour ce- MDRD equation with creatinine calibration to IDMS(NKDEP) eGFR not recommended for drug dose adjustment Performed By: #### H EMDF, NH33, PT, CMP3, LIPA4, CK3, TROPN, LACT3, MDIFF, PCAL #### [address] Potassium molar conc 3.4 mmol/L Low 3.5-5.1 [facility] Comment on above: Performed By: #### H EMDF, NH33, PT, CMP3, LIPA4, CK3, TROPN, LACT3, MDIFF, PCAL #### [address] Sodium molar conc 142 mmol/L Normal 135-145 [facility] Comment on above: Performed By: #### H EMDF, NH33, PT, CMP3, LIPA4, CK3, TROPN, LACT3, MDIFF, PCAL #### [address] [phone] Chloride molar conc 99 mmol/L Normal 98-107 [facility] Comment on above: Performed By: #### H EMDF, NH33, PT, CMP3, LIPA4, CK3, TROPN, LACT3, MDIFF, PCAL #### [address] [phone] Calcium mass conc 8.7 mg/dL Normal 8.4-10.4 [facility] Comment on above: Performed By: #### H EMDF, NH33, PT, CMP3, LIPA4, CK3, TROPN, LACT3, MDIFF, PCAL #### [address] [address] [place] Glucose mass conc 106 mg/dL High 70-100 [facility] Comment on above: Performed By: #### H EMDF, NH33, PT, CMP3, LIPA4, CK3, TROPN, LACT3, MDIFF, PCAL #### [address] [address] [place] Anion gap molar conc 7 Normal [facility] Comment on above: Performed By: #### H EMDF, NH33, PT, CMP3, LIPA4, CK3, TROPN, LACT3, MDIFF, PCAL #### [address] [address] [place] CO2 molar conc 36 mmol/L High 22-30 [facility] Comment on above: Performed By: #### H EMDF, NH33, PT, CMP3, LIPA4, CK3, TROPN, LACT3, MDIFF, PCAL #### [address] [address] [place] Creatinine mass conc 3.58 mg/dL High 0.52-1.25 [facility] Comment on above: Performed By: #### H EMDF, NH33, PT, CMP3, LIPA4, CK3, TROPN, LACT3, MDIFF, PCAL #### [address] [address] [address] GFR/1.73 sq M predicted among blacks MDRD vol rate/area (S/P/Bld) 20.0 mL/min/{1.73_m2} Normal >60 [facility] Comment on above: Performed By: #### H EMDF, NH33, PT, CMP3, LIPA4, CK3, TROPN, LACT3, MDIFF, PCAL #### [address] [place], [place] GFR/1.73 sq M predicted among non-blacks MDRD vol rate/area (S/P/Bld) 16.5 mL/min/{1.73_m2} Normal >60 [facility] Comment on above: Result Comment: Sour ce- MDRD equation with creatinine calibration to IDMS(NKDEP) eGFR not recommended for drug dose adjustment Performed By: #### H EMDF, NH33, PT, CMP3, LIPA4, CK3, TROPN, LACT3, MDIFF, PCAL #### [address] [address] [place], [place] Urea nitrogen mass conc 79 mg/dL High 7-20 [facility] Comment on above: Performed By: #### H EMDF, NH33, PT, CMP3, LIPA4, CK3, TROPN, LACT3, MDIFF, PCAL #### [address] [address] [place], [place] Chloride molar conc 97 mmol/L Low 98-107 [facility] Comment on above: Performed By: #### H EMDF, NH33, PT, CMP3, LIPA4, CK3, TROPN, LACT3, MDIFF, PCAL #### [address] [place] Potassium molar conc 3.5 mmol/L Normal 3.5-5.1 [facility] Comment on above: Performed By: #### H EMDF, NH33, PT, CMP3, LIPA4, CK3, TROPN, LACT3, MDIFF, PCAL #### [address] [address] [place], [place] Sodium molar conc 140 mmol/L Normal 135-145 [facility] Comment on above: Performed By: #### H EMDF, NH33, PT, CMP3, LIPA4, CK3, TROPN, LACT3, MDIFF, PCAL #### [address] [address] [place], [place] Calcium mass conc 8.7 mg/dL Normal 8.4-10.4 [facility] Comment on above: Performed By: #### H EMDF, NH33, PT, CMP3, LIPA4, CK3, TROPN, LACT3, MDIFF, PCAL #### [address] [address] [place], [place] Glucose mass conc 106 mg/dL High 70-100 [facility] Comment on above: Performed By: #### H EMDF, NH33, PT, CMP3, LIPA4, CK3, TROPN, LACT3, MDIFF, PCAL #### [facility] [address] [place], [place] Anion gap molar conc 9 Normal [facility] Comment on above: Performed By: #### H EMDF, NH33, PT, CMP3, LIPA4, CK3, TROPN, LACT3, MDIFF, PCAL #### [address] [address] [place] CO2 molar conc 35 mmol/L High 22-30 [facility] Comment on above: Performed By: #### H EMDF, NH33, PT, CMP3, LIPA4, CK3, TROPN, LACT3, MDIFF, PCAL #### [address] [address] [place], [place] Creatinine mass conc 3.92 mg/dL High 0.52-1.25 [facility] Comment on above: Performed By: #### H EMDF, NH33, PT, CMP3, LIPA4, CK3, TROPN, LACT3, MDIFF, PCAL #### [address] [place], [place] GFR/1.73 sq M predicted among blacks MDRD vol rate/area (S/P/Bld) 18.0 mL/min/{1.73_m2} Normal >60 [facility] Comment on above: Performed By: #### H EMDF, NH33, PT, CMP3, LIPA4, CK3, TROPN, LACT3, MDIFF, PCAL #### [address] [place] GFR/1.73 sq M predicted among non-blacks MDRD vol rate/area (S/P/Bld) 14.8 mL/min/{1.73_m2} Normal >60 [facility] Comment on above: Result Comment: Sour ce- MDRD equation with creatinine calibration to IDMS(NKDEP) eGFR not recommended for drug dose adjustment Performed By: #### H EMDF, NH33, PT, CMP3, LIPA4, CK3, TROPN, LACT3, MDIFF, PCAL #### [address] [place] Urea nitrogen mass conc 82 mg/dL High 7-20 [facility] Comment on above: Performed By: #### H EMDF, NH33, PT, CMP3, LIPA4, CK3, TROPN, LACT3, MDIFF, PCAL #### [address] [place] Chloride molar conc 96 mmol/L Low 98-107 [facility] Comment on above: Performed By: #### H EMDF, NH33, PT, CMP3, LIPA4, CK3, TROPN, LACT3, MDIFF, PCAL #### [address] [address] [place], [place] Potassium molar conc 4.1 mmol/L Normal 3.5-5.1 [facility] Comment on above: Performed By: #### H EMDF, NH33, PT, CMP3, LIPA4, CK3, TROPN, LACT3, MDIFF, PCAL #### [address] [address] [place], [place] Sodium molar conc 140 mmol/L Normal 135-145 [facility] Comment on above: Performed By: #### H EMDF, NH33, PT, CMP3, LIPA4, CK3, TROPN, LACT3, MDIFF, PCAL #### [address] [address] [place], [place] Calcium mass conc 9.1 mg/dL Normal 8.4-10.4 [facility] Comment on above: Performed By: #### H EMDF, NH33, PT, CMP3, LIPA4, CK3, TROPN, LACT3, MDIFF, PCAL #### [address] Glucose mass conc 123 mg/dL High 70-100 [facility] Comment on above: Performed By: #### H EMDF, NH33, PT, CMP3, LIPA4, CK3, TROPN, LACT3, MDIFF, PCAL #### [facility] [address] [place], [place] Urea nitrogen mass conc 83 mg/dL High 7-20 [facility] Comment on above: Performed By: #### H EMDF, NH33, PT, CMP3, LIPA4, CK3, TROPN, LACT3, MDIFF, PCAL #### [facility] [address] [place], [place] Anion gap molar conc 11 Normal [facility] Comment on above: Performed By: #### H EMDF, NH33, PT, CMP3, LIPA4, CK3, TROPN, LACT3, MDIFF, PCAL #### [address] [address] [place] CO2 molar conc 33 mmol/L High 22-30 [facility] Comment on above: Performed By: #### H EMDF, NH33, PT, CMP3, LIPA4, CK3, TROPN, LACT3, MDIFF, PCAL #### [address] [place] Creatinine mass conc 4.28 mg/dL High 0.52-1.25 [facility] Comment on above: Performed By: #### H EMDF, NH33, PT, CMP3, LIPA4, CK3, TROPN, LACT3, MDIFF, PCAL #### [address] [place] GFR/1.73 sq M predicted among blacks MDRD vol rate/area (S/P/Bld) 16.2 mL/min/{1.73_m2} Normal >60 [facility] Comment on above: Performed By: #### H EMDF, NH33, PT, CMP3, LIPA4, CK3, TROPN, LACT3, MDIFF, PCAL #### [address] [address] [place], [place] GFR/1.73 sq M predicted among non-blacks MDRD vol rate/area (S/P/Bld) 13.4 mL/min/{1.73_m2} Normal >60 [facility] Comment on above: Result Comment: Sour ce- MDRD equation with creatinine calibration to IDMS(NKDEP) eGFR not recommended for drug dose adjustment Performed By: #### H EMDF, NH33, PT, CMP3, LIPA4, CK3, TROPN, LACT3, MDIFF, PCAL #### [facility] [address] [place] [address] Potassium molar conc 3.4 mmol/L Low 3.5-5.1 [facility] Comment on above: Performed By: #### H EMDF, NH33, PT, CMP3, LIPA4, CK3, TROPN, LACT3, MDIFF, PCAL #### [facility] [address] [place] [address] Chloride molar conc 95 mmol/L Low 98-107 [facility] Comment on above: Performed By: #### H EMDF, NH33, PT, CMP3, LIPA4, CK3, TROPN, LACT3, MDIFF, PCAL #### [facility] [address] [place] [address] Sodium molar conc 139 mmol/L Normal 135-145 [facility] Comment on above: Performed By: #### H EMDF, NH33, PT, CMP3, LIPA4, CK3, TROPN, LACT3, MDIFF, PCAL #### [facility] [address] [place] [address] CR Chest Portableon 12-06-19 19 CR Chest Portable Patient Name: ELIAS SHAH Diagnostic Radiology Exam Date/Time 12/06/2018 06:25:16 EST Exam CR Chest Portable Ordering Physician KEE GARNICA HEATHER Accession Number [id number] CPT4 Codes 57655 () Reason For Exam pna Report CHEST [...] Transcribed Date and Time: 12/06/2018 8:10 Normal [facility] Echo Complete w/wo Contrasto n 12-06-2018 Echo Complete w/wo Contrast Patient Name: ELIAS SHAH Ultrasound Exam Date/Time 12/06/2018 10:17:48 EST Exam Echo Complete w/wo Contrast Ordering Physician KEE GARNICA HEATHER Accession Number [id number] Reason For Exam syncopal Report TRANSTHORACIC ECHOCARDIOGRAM PATIENT: Elias Shah STUDY DATE: 12/06/2018 : 1940 AGE: 78 HT/WT: 177.8 cm (70 82.6 kg (181.6 in) lb) GENDER: M BP: 136 / 68 LOCATION: [facility] PATIENT Inpatient [facility] STATUS: *ORDERING PHYSICIAN: * Patricia Garnica *READING PHYSICIAN: Martin Valdez *ARCHITECTURAL DRAFTER: * Torie Merrill RDCS, Brenda GUZMAN MD RCS --- [...] Signed by: MD GUTIERREZ STEPHEN A Normal [facility] w/ Autodiffon 12-06 Abs Baso Cnt 0.0 10*3/uL Normal 0.0-0.2 [facility] Comment on above: Performed By: #### H EMDF, NH33, PT, CMP3, LIPA4, CK3, TROPN, LACT3, MDIFF, PCAL #### [facility] [address] [place] [address] Abs Neutrophile Cnt 7.3 10*3/uL High 1.8-7.0 [facility] Comment on above: Performed By: #### H EMDF, NH33, PT, CMP3, LIPA4, CK3, TROPN, LACT3, MDIFF, PCAL #### [address] Basophils/100 WBC (Bld) 0.3 % Normal 0.0-2.0 [facility] Comment on above: Performed By: #### H EMDF, NH33, PT, CMP3, LIPA4, CK3, TROPN, LACT3, MDIFF, PCAL #### [address] Eosinophils #/vol (Bld) 0.0 10*3/uL Normal 0.0-0.5 [facility] Comment on above: Performed By: #### H EMDF, NH33, PT, CMP3, LIPA4, CK3, TROPN, LACT3, MDIFF, PCAL #### [address] Eosinophils/100 WBC (Bld) 0.0 % Low 1.0-6.0 [facility] Comment on above: Performed By: #### H EMDF, NH33, PT, CMP3, LIPA4, CK3, TROPN, LACT3, MDIFF, PCAL #### [address] Erythrocyte distribution width Ratio (RBC) 15.4 % High 11.5-14.5 [facility] Comment on above: Performed By: #### H EMDF, NH33, PT, CMP3, LIPA4, CK3, TROPN, LACT3, MDIFF, PCAL #### [address] Granulocytes/100 WBC (Bld) 71.0 % Normal 40.0-80.0 [facility] Comment on above: Performed By: #### H EMDF, NH33, PT, CMP3, LIPA4, CK3, TROPN, LACT3, MDIFF, PCAL #### [address] [address] Hematocrit Volume Fraction (Bld) 35.1 % Low 40.0-52.0 [facility] Comment on above: Performed By: #### H EMDF, NH33, PT, CMP3, LIPA4, CK3, TROPN, LACT3, MDIFF, PCAL #### [address] Hemoglobin mass conc (Bld) 11.6 g/dL Low 13.0-18.0 [facility] Comment on above: Performed By: #### H EMDF, NH33, PT, CMP3, LIPA4, CK3, TROPN, LACT3, MDIFF, PCAL #### [address] Lymphocytes #/vol (Bld) 1.3 10*3/uL Normal 1.0-4.3 [facility] Comment on above: Performed By: #### H EMDF, NH33, PT, CMP3, LIPA4, CK3, TROPN, LACT3, MDIFF, PCAL #### [address] Lymphocytes/100 WBC (Bld) 13.1 % Low 20.0-40.0 [facility] Comment on above: Performed By: #### H EMDF, NH33, PT, CMP3, LIPA4, CK3, TROPN, LACT3, MDIFF, PCAL #### [address] MCH Entitic mass (RBC) 28.5 pg Normal 26.0-34.0 [facility] Comment on above: Performed By: #### H EMDF, NH33, PT, CMP3, LIPA4, CK3, TROPN, LACT3, MDIFF, PCAL #### [address] MCHC mass conc (RBC) 33.1 % Normal 32.0-36.0 [facility] Comment on above: Performed By: #### H EMDF, NH33, PT, CMP3, LIPA4, CK3, TROPN, LACT3, MDIFF, PCAL #### [address] MCV Entitic volume (RBC) 86.2 fL Normal 80.0-98.0 [facility] Comment on above: Performed By: #### H EMDF, NH33, PT, CMP3, LIPA4, CK3, TROPN, LACT3, MDIFF, PCAL #### [address] Monocytes #/vol (Bld) 1.6 10*3/uL High 0.0-0.8 [facility] Comment on above: Performed By: #### H EMDF, NH33, PT, CMP3, LIPA4, CK3, TROPN, LACT3, MDIFF, PCAL #### [address] Monocytes/100 WBC (Bld) 15.6 % High 2.0-10.0 [facility] Comment on above: Performed By: #### H EMDF, NH33, PT, CMP3, LIPA4, CK3, TROPN, LACT3, MDIFF, PCAL #### [address] Platelet mean volume Entitic volume (Bld) 8.6 fL Normal 7.4-10.4 [facility] Comment on above: Performed By: #### H EMDF, NH33, PT, CMP3, LIPA4, CK3, TROPN, LACT3, MDIFF, PCAL #### [address] Platelets #/vol (Bld) 224 10*3/uL Normal 140-440 [facility] Comment on above: Performed By: #### H EMDF, NH33, PT, CMP3, LIPA4, CK3, TROPN, LACT3, MDIFF, PCAL #### [address] RBC #/vol (Bld) 4.07 10*6/uL Low 4.40-5.90 [facility] Comment on above: Performed By: #### H EMDF, NH33, PT, CMP3, LIPA4, CK3, TROPN, LACT3, MDIFF, PCAL #### [address] [address] [place], [place] WBC #/vol (Bld) 10.3 10*3/uL Normal 3.6-10.7 [facility] Comment on above: Performed By: #### H EMDF, NH33, PT, CMP3, LIPA4, CK3, TROPN, LACT3, MDIFF, PCAL #### [address] [place] Magnesiumon 12-06-2018 Magnesium mass conc 3.0 mg/dL High 1.6-2.3 [facility] Comment on above: Performed By: #### H EMDF, NH33, PT, CMP3, LIPA4, CK3, TROPN, LACT3, MDIFF, PCAL #### [address] Magnesium mass conc 3.1 mg/dL High 1.6-2.3 [facility] Comment on above: Performed By: #### H EMDF, NH33, PT, CMP3, LIPA4, CK3, TROPN, LACT3, MDIFF, PCAL #### [address] [place] Magnesium mass conc 3.3 mg/dL High 1.6-2.3 [facility] Comment on above: Performed By: #### H EMDF, NH33, PT, CMP3, LIPA4, CK3, TROPN, LACT3, MDIFF, PCAL #### [address] [place] Magnesium mass conc 3.4 mg/dL High 1.6-2.3 [facility] Comment on above: Performed By: #### H EMDF, NH33, PT, CMP3, LIPA4, CK3, TROPN, LACT3, MDIFF, PCAL #### [address] Phosphoruson 12-06-2018 Phosphate mass conc 4.0 mg/dL Normal 2.5-4.5 [facility] Comment on above: Performed By: #### H EMDF, NH33, PT, CMP3, LIPA4, CK3, TROPN, LACT3, MDIFF, PCAL #### [address] [address] [place], [place] Troponin Ion 12-06-2018 Troponin I.cardiac mass conc 0.240 ng/mL High 0.000-0.034 [facility] Comment on above: Result Comment: 0.04 6 - 0.400 = Indeterminate > 0.400 = Consider Myocardial Injury Performed By: #### H EMDF, NH33, PT, CMP3, LIPA4, CK3, TROPN, LACT3, MDIFF, PCAL #### [address] [address] [place], [place] Add on test from [facility] 12-05 Add on test from [facility] Accepted Normal [facility] Comment on above: Result Comment: Spec imen available & acceptable for analysis. Performed By: #### H EMDF, NH33, PT, CMP3, LIPA4, CK3, TROPN, LACT3, MDIFF, PCAL #### [address] [address] [place], [place] Basic Metabolic Panelon 11-23 Anion gap molar conc 11 Normal [facility] Comment on above: Performed By: #### H EMDF, NH33, PT, CMP3, LIPA4, CK3, TROPN, LACT3, MDIFF, PCAL #### [address] [address] [place] CO2 molar conc 35 mmol/L High 22-30 [facility] Comment on above: Performed By: #### H EMDF, NH33, PT, CMP3, LIPA4, CK3, TROPN, LACT3, MDIFF, PCAL #### [address] Calcium mass conc 8.8 mg/dL Normal 8.4-10.4 [facility] Comment on above: Performed By: #### H EMDF, NH33, PT, CMP3, LIPA4, CK3, TROPN, LACT3, MDIFF, PCAL #### [address] [address] [place], [place] Glucose mass conc 124 mg/dL High 70-100 [facility] Comment on above: Performed By: #### H EMDF, NH33, PT, CMP3, LIPA4, CK3, TROPN, LACT3, MDIFF, PCAL #### [facility] [address] [place], [place] Urea nitrogen mass conc 89 mg/dL High 7-20 [facility] Comment on above: Performed By: #### H EMDF, NH33, PT, CMP3, LIPA4, CK3, TROPN, LACT3, MDIFF, PCAL #### [facility] [address] [place], [place] Creatinine mass conc 5.11 mg/dL High 0.52-1.25 [facility] Comment on above: Performed By: #### H EMDF, NH33, PT, CMP3, LIPA4, CK3, TROPN, LACT3, MDIFF, PCAL #### [address] [place] GFR/1.73 sq M predicted among blacks MDRD vol rate/area (S/P/Bld) 13.2 mL/min/{1.73_m2} Normal >60 [facility] Comment on above: Performed By: #### H EMDF, NH33, PT, CMP3, LIPA4, CK3, TROPN, LACT3, MDIFF, PCAL #### [facility] [address] [place], [place] GFR/1.73 sq M predicted among non-blacks MDRD vol rate/area (S/P/Bld) 10.9 mL/min/{1.73_m2} Normal >60 [facility] Comment on above: Result Comment: Sour ce- MDRD equation with creatinine calibration to IDMS(NKDEP) eGFR not recommended for drug dose adjustment Performed By: #### H EMDF, NH33, PT, CMP3, LIPA4, CK3, TROPN, LACT3, MDIFF, PCAL #### [address] [place] Chloride molar conc 93 mmol/L Low 98-107 [facility] Comment on above: Performed By: #### H EMDF, NH33, PT, CMP3, LIPA4, CK3, TROPN, LACT3, MDIFF, PCAL #### [address] [address] [place], [place] Potassium molar conc 3.7 mmol/L Normal 3.5-5.1 [facility] Comment on above: Performed By: #### H EMDF, NH33, PT, CMP3, LIPA4, CK3, TROPN, LACT3, MDIFF, PCAL #### [address] [place] Sodium molar conc 137 mmol/L Normal 135-145 [facility] Comment on above: Performed By: #### H EMDF, NH33, PT, CMP3, LIPA4, CK3, TROPN, LACT3, MDIFF, PCAL #### [address] [address] [place], [place] Calcium mass conc 5.4 mg/dL Critically low 8.4-10.4 [facility] Comment on above: Result Comment: Repe ated Performed By: #### H EMDF, NH33, PT, CMP3, LIPA4, CK3, TROPN, LACT3, MDIFF, PCAL #### [address] [address] [place] Potassium molar conc 2.3 mmol/L Critically low 3.5-5.1 [facility] Comment on above: Result Comment: Repe ated Performed By: #### H EMDF, NH33, PT, CMP3, LIPA4, CK3, TROPN, LACT3, MDIFF, PCAL #### [address] Anion gap molar conc 7 Normal [facility] Comment on above: Performed By: #### H EMDF, NH33, PT, CMP3, LIPA4, CK3, TROPN, LACT3, MDIFF, PCAL #### [address] [address] [place] CO2 molar conc 24 mmol/L Normal 22-30 [facility] Comment on above: Performed By: #### H EMDF, NH33, PT, CMP3, LIPA4, CK3, TROPN, LACT3, MDIFF, PCAL #### [address] [address] Glucose mass conc 116 mg/dL High 70-100 [facility] Comment on above: Performed By: #### H EMDF, NH33, PT, CMP3, LIPA4, CK3, TROPN, LACT3, MDIFF, PCAL #### [address] Urea nitrogen mass conc 63 mg/dL High 7-20 [facility] Comment on above: Performed By: #### H EMDF, NH33, PT, CMP3, LIPA4, CK3, TROPN, LACT3, MDIFF, PCAL #### [address] Creatinine mass conc 3.44 mg/dL High 0.52-1.25 [facility] Comment on above: Performed By: #### H EMDF, NH33, PT, CMP3, LIPA4, CK3, TROPN, LACT3, MDIFF, PCAL #### [address] GFR/1.73 sq M predicted among blacks MDRD vol rate/area (S/P/Bld) 20.9 mL/min/{1.73_m2} Normal >60 [facility] Comment on above: Performed By: #### H EMDF, NH33, PT, CMP3, LIPA4, CK3, TROPN, LACT3, MDIFF, PCAL #### [address] GFR/1.73 sq M predicted among non-blacks MDRD vol rate/area (S/P/Bld) 17.2 mL/min/{1.73_m2} Normal >60 [facility] Comment on above: Result Comment: Sour ce- MDRD equation with creatinine calibration to IDMS(NKDEP) eGFR not recommended for drug dose adjustment Performed By: #### H EMDF, NH33, PT, CMP3, LIPA4, CK3, TROPN, LACT3, MDIFF, PCAL #### [address] [address] [place] Chloride molar conc 109 mmol/L High 98-107 [facility] Comment on above: Performed By: #### H EMDF, NH33, PT, CMP3, LIPA4, CK3, TROPN, LACT3, MDIFF, PCAL #### [address] [place] Sodium molar conc 140 mmol/L Normal 135-145 [facility] Comment on above: Performed By: #### H EMDF, NH33, PT, CMP3, LIPA4, CK3, TROPN, LACT3, MDIFF, PCAL #### [address] [place] Anion gap molar conc 12 Normal [facility] Comment on above: Performed By: #### H EMDF, NH33, PT, CMP3, LIPA4, CK3, TROPN, LACT3, MDIFF, PCAL #### [address] [place] Calcium mass conc 7.8 mg/dL Low 8.4-10.4 [facility] Comment on above: Performed By: #### H EMDF, NH33, PT, CMP3, LIPA4, CK3, TROPN, LACT3, MDIFF, PCAL #### [address] [place] CO2 molar conc 32 mmol/L High 22-30 [facility] Comment on above: Performed By: #### H EMDF, NH33, PT, CMP3, LIPA4, CK3, TROPN, LACT3, MDIFF, PCAL #### [address] [address] [place] Glucose mass conc 133 mg/dL High 70-100 [facility] Comment on above: Performed By: #### H EMDF, NH33, PT, CMP3, LIPA4, CK3, TROPN, LACT3, MDIFF, PCAL #### [address] [place] Urea nitrogen mass conc 84 mg/dL High 7-20 [facility] Comment on above: Performed By: #### H EMDF, NH33, PT, CMP3, LIPA4, CK3, TROPN, LACT3, MDIFF, PCAL #### [facility] [address] [place] [address] Creatinine mass conc 5.23 mg/dL High 0.52-1.25 [facility] Comment on above: Performed By: #### H EMDF, NH33, PT, CMP3, LIPA4, CK3, TROPN, LACT3, MDIFF, PCAL #### [address] [place] [address] GFR/1.73 sq M predicted among blacks MDRD vol rate/area (S/P/Bld) 12.9 mL/min/{1.73_m2} Normal >60 [facility] Comment on above: Performed By: #### H EMDF, NH33, PT, CMP3, LIPA4, CK3, TROPN, LACT3, MDIFF, PCAL #### [address] [place] GFR/1.73 sq M predicted among non-blacks MDRD vol rate/area (S/P/Bld) 10.6 mL/min/{1.73_m2} Normal >60 [facility] Comment on above: Result Comment: Sour ce- MDRD equation with creatinine calibration to IDMS(NKDEP) eGFR not recommended for drug dose adjustment Performed By: #### H EMDF, NH33, PT, CMP3, LIPA4, CK3, TROPN, LACT3, MDIFF, PCAL #### [address] [place] [address] Chloride molar conc 95 mmol/L Low 98-107 [facility] Comment on above: Performed By: #### H EMDF, NH33, PT, CMP3, LIPA4, CK3, TROPN, LACT3, MDIFF, PCAL #### [address] [place] [address] Potassium molar conc 3.4 mmol/L Low 3.5-5.1 [facility] Comment on above: Performed By: #### H EMDF, NH33, PT, CMP3, LIPA4, CK3, TROPN, LACT3, MDIFF, PCAL #### [address] [address] [place] Sodium molar conc 139 mmol/L Normal 135-145 [facility] Comment on above: Performed By: #### H EMDF, NH33, PT, CMP3, LIPA4, CK3, TROPN, LACT3, MDIFF, PCAL #### [address] Calcium mass conc 8.1 mg/dL Low 8.4-10.4 [facility] Comment on above: Performed By: #### H EMDF, NH33, PT, CMP3, LIPA4, CK3, TROPN, LACT3, MDIFF, PCAL #### [address] Anion gap molar conc 18 Normal [facility] Comment on above: Performed By: #### H EMDF, NH33, PT, CMP3, LIPA4, CK3, TROPN, LACT3, MDIFF, PCAL #### [address] CO2 molar conc 30 mmol/L Normal 22-30 [facility] Comment on above: Performed By: #### H EMDF, NH33, PT, CMP3, LIPA4, CK3, TROPN, LACT3, MDIFF, PCAL #### [address] Creatinine mass conc 5.38 mg/dL High 0.52-1.25 [facility] Comment on above: Performed By: #### H EMDF, NH33, PT, CMP3, LIPA4, CK3, TROPN, LACT3, MDIFF, PCAL #### [address] GFR/1.73 sq M predicted among blacks MDRD vol rate/area (S/P/Bld) 12.5 mL/min/{1.73_m2} Normal >60 [facility] Comment on above: Performed By: #### H EMDF, NH33, PT, CMP3, LIPA4, CK3, TROPN, LACT3, MDIFF, PCAL #### [place] [address] [place] GFR/1.73 sq M predicted among non-blacks MDRD vol rate/area (S/P/Bld) 10.3 mL/min/{1.73_m2} Normal >60 [facility] Comment on above: Result Comment: Sour ce- MDRD equation with creatinine calibration to IDMS(NKDEP) eGFR not recommended for drug dose adjustment Performed By: #### H EMDF, NH33, PT, CMP3, LIPA4, CK3, TROPN, LACT3, MDIFF, PCAL #### [place] [address] [place] Glucose mass conc 148 mg/dL High 70-100 [facility] Comment on above: Performed By: #### H EMDF, NH33, PT, CMP3, LIPA4, CK3, TROPN, LACT3, MDIFF, PCAL #### [address] [place] [address] Urea nitrogen mass conc 78 mg/dL High 7-20 [facility] Comment on above: Performed By: #### H EMDF, NH33, PT, CMP3, LIPA4, CK3, TROPN, LACT3, MDIFF, PCAL #### [place] [address] [place] Potassium molar conc 3.5 mmol/L Normal 3.5-5.1 [facility] Comment on above: Performed By: #### H EMDF, NH33, PT, CMP3, LIPA4, CK3, TROPN, LACT3, MDIFF, PCAL #### [place] [address] [place] Sodium molar conc 139 mmol/L Normal 135-145 [facility] Comment on above: Performed By: #### H EMDF, NH33, PT, CMP3, LIPA4, CK3, TROPN, LACT3, MDIFF, PCAL #### [address] [place] [address] Chloride molar conc 91 mmol/L Low 98-107 [facility] Comment on above: Performed By: #### H EMDF, NH33, PT, CMP3, LIPA4, CK3, TROPN, LACT3, MDIFF, PCAL #### [facility] [address] [place] [address] CR Chest Portableon 12-05-19 19 CR Chest Portable Patient Name: ELIAS SHAH Diagnostic Radiology Exam Date/Time 12/05/2018 12:50:41 EST Exam CR Chest Portable Ordering Physician MD MANINDER, SIMON Wall Accession Number [id number] CPT4 Codes 26758 () Reason For Exam cvc placement Report [...] Transcribed Date and Time: 12/05/2018 2:02 Normal [facility] Calcium,Ionizedon 12-05-2018 Ionized Ca,Measured 4.00 mg/dL Low 4.30-5.20 [facility] Comment on above: Performed By: #### H EMDF, NH33, PT, CMP3, LIPA4, CK3, TROPN, LACT3, MDIFF, PCAL #### [facility] [address] [place] [address] pH, Ionized Calcium 7.39 Normal 7.31-7.46 [facility] Comment on above: Performed By: #### H EMDF, NH33, PT, CMP3, LIPA4, CK3, TROPN, LACT3, MDIFF, PCAL #### [address] [address] Hemogram w/ Autodiffon 12-05 Abs Baso Cnt 0.1 10*3/uL Normal 0.0-0.2 [facility] Comment on above: Performed By: #### H EMDF, NH33, PT, CMP3, LIPA4, CK3, TROPN, LACT3, MDIFF, PCAL #### [address] [address] Abs Neutrophile Cnt 10.4 10*3/uL High 1.8-7.0 [facility] Comment on above: Performed By: #### H EMDF, NH33, PT, CMP3, LIPA4, CK3, TROPN, LACT3, MDIFF, PCAL #### [address] Basophils/100 WBC (Bld) 0.5 % Normal 0.0-2.0 [facility] Comment on above: Performed By: #### H EMDF, NH33, PT, CMP3, LIPA4, CK3, TROPN, LACT3, MDIFF, PCAL #### [address] Eosinophils #/vol (Bld) 0.0 10*3/uL Normal 0.0-0.5 [facility] Comment on above: Performed By: #### H EMDF, NH33, PT, CMP3, LIPA4, CK3, TROPN, LACT3, MDIFF, PCAL #### [address] [address] Eosinophils/100 WBC (Bld) 0.0 % Low 1.0-6.0 [facility] Comment on above: Performed By: #### H EMDF, NH33, PT, CMP3, LIPA4, CK3, TROPN, LACT3, MDIFF, PCAL #### [address] Erythrocyte distribution width Ratio (RBC) 15.7 % High 11.5-14.5 [facility] Comment on above: Performed By: #### H EMDF, NH33, PT, CMP3, LIPA4, CK3, TROPN, LACT3, MDIFF, PCAL #### [address] Granulocytes/100 WBC (Bld) 77.9 % Normal 40.0-80.0 [facility] Comment on above: Performed By: #### H EMDF, NH33, PT, CMP3, LIPA4, CK3, TROPN, LACT3, MDIFF, PCAL #### [address] Hematocrit Volume Fraction (Bld) 36.7 % Low 40.0-52.0 [facility] Comment on above: Performed By: #### H EMDF, NH33, PT, CMP3, LIPA4, CK3, TROPN, LACT3, MDIFF, PCAL #### [address] Hemoglobin mass conc (Bld) 11.9 g/dL Low 13.0-18.0 [facility] Comment on above: Performed By: #### H EMDF, NH33, PT, CMP3, LIPA4, CK3, TROPN, LACT3, MDIFF, PCAL #### [address] Lymphocytes #/vol (Bld) 0.9 10*3/uL Low 1.0-4.3 [facility] Comment on above: Performed By: #### H EMDF, NH33, PT, CMP3, LIPA4, CK3, TROPN, LACT3, MDIFF, PCAL #### [address] Lymphocytes/100 WBC (Bld) 6.6 % Low 20.0-40.0 [facility] Comment on above: Performed By: #### H EMDF, NH33, PT, CMP3, LIPA4, CK3, TROPN, LACT3, MDIFF, PCAL #### [address] MCH Entitic mass (RBC) 28.0 pg Normal 26.0-34.0 [facility] Comment on above: Performed By: #### H EMDF, NH33, PT, CMP3, LIPA4, CK3, TROPN, LACT3, MDIFF, PCAL #### [address] MCHC mass conc (RBC) 32.3 % Normal 32.0-36.0 [facility] Comment on above: Performed By: #### H EMDF, NH33, PT, CMP3, LIPA4, CK3, TROPN, LACT3, MDIFF, PCAL #### [address] MCV Entitic volume (RBC) 86.7 fL Normal 80.0-98.0 [facility] Comment on above: Performed By: #### H EMDF, NH33, PT, CMP3, LIPA4, CK3, TROPN, LACT3, MDIFF, PCAL #### [address] Monocytes #/vol (Bld) 2.0 10*3/uL High 0.0-0.8 [facility] Comment on above: Performed By: #### H EMDF, NH33, PT, CMP3, LIPA4, CK3, TROPN, LACT3, MDIFF, PCAL #### [address] Monocytes/100 WBC (Bld) 15.0 % High 2.0-10.0 [facility] Comment on above: Performed By: #### H EMDF, NH33, PT, CMP3, LIPA4, CK3, TROPN, LACT3, MDIFF, PCAL #### [address] Platelet mean volume Entitic volume (Bld) 9.1 fL Normal 7.4-10.4 [facility] Comment on above: Performed By: #### H EMDF, NH33, PT, CMP3, LIPA4, CK3, TROPN, LACT3, MDIFF, PCAL #### [address] Platelets #/vol (Bld) 218 10*3/uL Normal 140-440 [facility] Comment on above: Performed By: #### H EMDF, NH33, PT, CMP3, LIPA4, CK3, TROPN, LACT3, MDIFF, PCAL #### [address] RBC #/vol (Bld) 4.23 10*6/uL Low 4.40-5.90 [facility] Comment on above: Performed By: #### H EMDF, NH33, PT, CMP3, LIPA4, CK3, TROPN, LACT3, MDIFF, PCAL #### [address] WBC #/vol (Bld) 13.3 10*3/uL High 3.6-10.7 [facility] Comment on above: Performed By: #### H EMDF, NH33, PT, CMP3, LIPA4, CK3, TROPN, LACT3, MDIFF, PCAL #### [address] Lactic Acidon 12-05-2018 Lactate molar conc 1.0 mmol/L Normal 0.7-2.0 [facility] Comment on above: Performed By: #### H EMDF, NH33, PT, CMP3, LIPA4, CK3, TROPN, LACT3, MDIFF, PCAL #### [address] Lactate molar conc 1.1 mmol/L Normal 0.7-2.0 [facility] Comment on above: Performed By: #### H EMDF, NH33, PT, CMP3, LIPA4, CK3, TROPN, LACT3, MDIFF, PCAL #### [address] [address] Lactate molar conc 1.5 mmol/L Normal 0.7-2.0 [facility] Comment on above: Performed By: #### H EMDF, NH33, PT, CMP3, LIPA4, CK3, TROPN, LACT3, MDIFF, PCAL #### [address] [place] [address] Lactate molar conc 1.6 mmol/L Normal 0.7-2.0 [facility] Comment on above: Performed By: #### H EMDF, NH33, PT, CMP3, LIPA4, CK3, TROPN, LACT3, MDIFF, PCAL #### [address] [place] [address] Magnesiumon 12-05-2018 Magnesium mass conc 1.6 mg/dL Normal 1.6-2.3 [facility] Comment on above: Performed By: #### H EMDF, NH33, PT, CMP3, LIPA4, CK3, TROPN, LACT3, MDIFF, PCAL #### [address] [place] Magnesium mass conc 2.3 mg/dL Normal 1.6-2.3 [facility] Comment on above: Performed By: #### H EMDF, NH33, PT, CMP3, LIPA4, CK3, TROPN, LACT3, MDIFF, PCAL #### [address] [address] [place], [place] Magnesium mass conc 2.5 mg/dL High 1.6-2.3 [facility] Comment on above: Performed By: #### H EMDF, NH33, PT, CMP3, LIPA4, CK3, TROPN, LACT3, MDIFF, PCAL #### [address] Microalbumin/Creat Ratioon 0 12-05-2018 Microalb/Creat Ratio 206.2 mg/g High 0.0-29.9 [facility] Comment on above: Performed By: #### H EMDF, NH33, PT, CMP3, LIPA4, CK3, TROPN, LACT3, MDIFF, PCAL #### [address] [address] [place] [address] Microalbumin, Ur 375.0 mg/L High 0.0-17.0 [facility] Comment on above: Result Comment: Micr oalbumin concentrations <30 are considered normal, 30-300 are considered microalbuminuria (or risk of diabetic nephropathy), and >300 are considered clinical albuminuria (clinical nephropathy). Diabetes Care,27, Supplement 1, V41-29, 2003 Performed By: #### H EMDF, NH33, PT, CMP3, LIPA4, CK3, TROPN, LACT3, MDIFF, PCAL #### [facility] [address] [place] [address] Creatinine, Ur Random 181.9 mg/dL Normal No Range [facility] Comment on above: Performed By: #### H EMDF, NH33, PT, CMP3, LIPA4, CK3, TROPN, LACT3, MDIFF, PCAL #### [address] [address] Op Noteon 12-05-2018 Op Note PATIENT: ELIAS [...] ventral hernia with strangulated bowel. Anesthesia: General. Truck Manager: Dr. Van Tolliver. Complications: None. Blood Loss: Minimal. Details: The patient is an 78-year-old gentleman who presents to [facility] ER with abdominal pain, emesis, acute [...] Made 2 enterotomies, we then performed a [id number]-[id number] functional, end-to-end stapled anastomosis using 75 mm [...] Unit in stable condition. Diskriter Job ID: [id number] Felipe Gonzáles DO DOD:12/04/2018 10:08 P MAP/dsk DOT:12/05/2018 01:14 A Job Number: [id number] Document Number: [id number] cc: Stella Bosch II, MD [facility]5 [facility] N [facility] [address] Felipe Gonzáles DO [facility] [address] [place] [address] [address] [facility] [address] Normal [facility] Osmolality,Urineon 9 Osmolality,Urine 466 mosm/kg Normal 300-1000 [facility] Comment on above: Performed By: #### H EMDF, NH33, PT, CMP3, LIPA4, CK3, TROPN, LACT3, MDIFF, PCAL #### [address] [place] PTH, Intacton 12-05-2018 PTH, Intact 224.6 pg/mL High 15.0-63.0 [facility] Comment on above: Performed By: #### H EMDF, NH33, PT, CMP3, LIPA4, CK3, TROPN, LACT3, MDIFF, PCAL #### [address] [place] Phosphoruson 12-05-2018 Phosphate mass conc 5.4 mg/dL High 2.5-4.5 [facility] Comment on above: Performed By: #### H EMDF, NH33, PT, CMP3, LIPA4, CK3, TROPN, LACT3, MDIFF, PCAL #### [address] [place] Phosphate mass conc 5.7 mg/dL High 2.5-4.5 [facility] Comment on above: Performed By: #### H EMDF, NH33, PT, CMP3, LIPA4, CK3, TROPN, LACT3, MDIFF, PCAL #### [address] [place] Protein, Ur Randomon 019 Protein mass conc 34 mg/dL High No Range [facility] Comment on above: Performed By: #### H EMDF, NH33, PT, CMP3, LIPA4, CK3, TROPN, LACT3, MDIFF, PCAL #### [address] [place] Renal Functionon 12-05-2018 Calcium mass conc 8.0 mg/dL Low 8.4-10.4 [facility] Comment on above: Performed By: #### H EMDF, NH33, PT, CMP3, LIPA4, CK3, TROPN, LACT3, MDIFF, PCAL #### [address] [address] [place] Glucose mass conc 117 mg/dL High 70-100 [facility] Comment on above: Performed By: #### H EMDF, NH33, PT, CMP3, LIPA4, CK3, TROPN, LACT3, MDIFF, PCAL #### [address] Phosphate mass conc 6.1 mg/dL High 2.5-4.5 [facility] Comment on above: Performed By: #### H EMDF, NH33, PT, CMP3, LIPA4, CK3, TROPN, LACT3, MDIFF, PCAL #### [address] [address] [place], [place] Urea nitrogen mass conc 93 mg/dL High 7-20 [facility] Comment on above: Performed By: #### H EMDF, NH33, PT, CMP3, LIPA4, CK3, TROPN, LACT3, MDIFF, PCAL #### [address] Anion gap molar conc 10 Normal [facility] Comment on above: Performed By: #### H EMDF, NH33, PT, CMP3, LIPA4, CK3, TROPN, LACT3, MDIFF, PCAL #### [address] [address] [place] CO2 molar conc 34 mmol/L High 22-30 [facility] Comment on above: Performed By: #### H EMDF, NH33, PT, CMP3, LIPA4, CK3, TROPN, LACT3, MDIFF, PCAL #### [address] Creatinine mass conc 5.05 mg/dL High 0.52-1.25 [facility] Comment on above: Performed By: #### H EMDF, NH33, PT, CMP3, LIPA4, CK3, TROPN, LACT3, MDIFF, PCAL #### [address] GFR/1.73 sq M predicted among blacks MDRD vol rate/area (S/P/Bld) 13.4 mL/min/{1.73_m2} Normal >60 [facility] Comment on above: Performed By: #### H EMDF, NH33, PT, CMP3, LIPA4, CK3, TROPN, LACT3, MDIFF, PCAL #### [address] GFR/1.73 sq M predicted among non-blacks MDRD vol rate/area (S/P/Bld) 11.1 mL/min/{1.73_m2} Normal >60 [facility] Comment on above: Result Comment: Sour ce- MDRD equation with creatinine calibration to IDMS(NKDEP) eGFR not recommended for drug dose adjustment Performed By: #### H EMDF, NH33, PT, CMP3, LIPA4, CK3, TROPN, LACT3, MDIFF, PCAL #### [address] Potassium molar conc 3.9 mmol/L Normal 3.5-5.1 [facility] Comment on above: Performed By: #### H EMDF, NH33, PT, CMP3, LIPA4, CK3, TROPN, LACT3, MDIFF, PCAL #### [address] [address] [place], [place] Albumin mass conc 3.0 g/dL Low 3.5-5.0 [facility] Comment on above: Performed By: #### H EMDF, NH33, PT, CMP3, LIPA4, CK3, TROPN, LACT3, MDIFF, PCAL #### [address] [address] [place], [place] Chloride molar conc 93 mmol/L Low 98-107 [facility] Comment on above: Performed By: #### H EMDF, NH33, PT, CMP3, LIPA4, CK3, TROPN, LACT3, MDIFF, PCAL #### [address] Sodium molar conc 137 mmol/L Normal 135-145 [facility] Comment on above: Performed By: #### H EMDF, NH33, PT, CMP3, LIPA4, CK3, TROPN, LACT3, MDIFF, PCAL #### [address] [address] Sodium, Ur Randomon 12-05-19 19 Sodium molar conc 34 mmol/L Normal No Range [facility] Comment on above: Performed By: #### H EMDF, NH33, PT, CMP3, LIPA4, CK3, TROPN, LACT3, MDIFF, PCAL #### [address] Thyroid Stim. Hormoneon 11-23 Thyroid Stim. Hormone 2.220 u[IU]/mL Normal 0.465-4.68 0 [facility] Comment on above: Performed By: #### H EMDF, NH33, PT, CMP3, LIPA4, CK3, TROPN, LACT3, MDIFF, PCAL #### [address] Troponin Ion 12-05-2018 Troponin I.cardiac mass conc 0.467 ng/mL High 0.000-0.034 [facility] Comment on above: Result Comment: 0.04 6 - 0.400 = Indeterminate > 0.400 = Consider Myocardial Injury Performed By: #### H EMDF, NH33, PT, CMP3, LIPA4, CK3, TROPN, LACT3, MDIFF, PCAL #### [place] [address] Troponin I.cardiac mass conc 0.716 ng/mL High 0.000-0.034 [facility] Comment on above: Result Comment: 0.04 6 - 0.400 = Indeterminate > 0.400 = Consider Myocardial Injury Performed By: #### H EMDF, NH33, PT, CMP3, LIPA4, CK3, TROPN, LACT3, MDIFF, PCAL #### [address] [address] Troponin I.cardiac mass conc 0.952 ng/mL High 0.000-0.034 [facility] Comment on above: Result Comment: 0.04 6 - 0.400 = Indeterminate > 0.400 = Consider Myocardial Injury Performed By: #### H EMDF, NH33, PT, CMP3, LIPA4, CK3, TROPN, LACT3, MDIFF, PCAL #### [facility] [address] [place] [address] Urea Nitrogen,Ur Randomon Urea nitrogen mass conc 490 mg/dL Normal No Range [facility] Comment on above: Performed By: #### H EMDF, NH33, PT, CMP3, LIPA4, CK3, TROPN, LACT3, MDIFF, PCAL #### [facility] [address] [place] [address] Vit D 25-OH, Totalon 019 Vit D 25-OH, Total 18 ng/mL Low 30-100 [facility] Comment on above: Result Comment: Ther apy is based on measurement of Total 25-OHD with the following classification levels: Less than 20 ng/mL: Indicative of Vit D deficiency 20-30 ng/mL: Suggests Vit D insufficiency Optimal: Greater than or equal to 30 ng/mL Test performed by H[employer] Competitive Immunoassay, measuring Total Vitamin D, not individual fractions. Performed By: #### H EMDF, NH33, PT, CMP3, LIPA4, CK3, TROPN, LACT3, MDIFF, PCAL #### [facility] [address] [place], [place] Vitamin B12on 12-05-2018 Cobalamin (Vitamin B12) mass conc 260 pg/mL Normal 239-931 [facility] Comment on above: Performed By: #### H EMDF, NH33, PT, CMP3, LIPA4, CK3, TROPN, LACT3, MDIFF, PCAL #### [facility] [address] [place], [place] Ammoniaon 12-04-2018 Ammonia mass conc (P) 24 umol/L Normal 9-30 [facility] Comment on above: Performed By: #### H EMDF, NH33, PT, CMP3, LIPA4, CK3, TROPN, LACT3, MDIFF, PCAL #### [facility] [address] [place] [address] Arterial Blood Gaseson 12-04 CO2 molar conc 30.8 mmol/L High 23.0-27.0 [facility] Comment on above: Performed By: #### H EMDF, NH33, PT, CMP3, LIPA4, CK3, TROPN, LACT3, MDIFF, PCAL #### [address] HCO3 molar conc (Bld) 29.4 mmol/L High 21.0-25.0 [facility] Comment on above: Performed By: #### H EMDF, NH33, PT, CMP3, LIPA4, CK3, TROPN, LACT3, MDIFF, PCAL #### [address] Hemoglobin mass conc (Bld) 13.9 g/dL Normal ScreenOnly [facility] Comment on above: Performed By: #### H EMDF, NH33, PT, CMP3, LIPA4, CK3, TROPN, LACT3, MDIFF, PCAL #### [address] Oxygen ppres (Bld) 102.3 mm[Hg] High 80.0-100.0 [facility] Comment on above: Performed By: #### H EMDF, NH33, PT, CMP3, LIPA4, CK3, TROPN, LACT3, MDIFF, PCAL #### [address] [address] [place], [place] Oxygen saturation in Blood 97.1 % Normal 95.0-100.0 [facility] Comment on above: Performed By: #### H EMDF, NH33, PT, CMP3, LIPA4, CK3, TROPN, LACT3, MDIFF, PCAL #### [address] pCO2 46.8 mm[Hg] High 35.0-45.0 [facility] Comment on above: Performed By: #### H EMDF, NH33, PT, CMP3, LIPA4, CK3, TROPN, LACT3, MDIFF, PCAL #### [address] pH (Bld) 7.416 Normal 7.350-7.450 [facility] Comment on above: Performed By: #### H EMDF, NH33, PT, CMP3, LIPA4, CK3, TROPN, LACT3, MDIFF, PCAL #### [address] Std Base Excess 4.1 mmol/L High -3.0-3.0 [facility] Comment on above: Performed By: #### H EMDF, NH33, PT, CMP3, LIPA4, CK3, TROPN, LACT3, MDIFF, PCAL #### [address] FIO2 No data Normal [facility] Comment on above: Performed By: #### H EMDF, NH33, PT, CMP3, LIPA4, CK3, TROPN, LACT3, MDIFF, PCAL #### [address] CO2 molar conc 31.5 mmol/L High 23.0-27.0 [facility] Comment on above: Performed By: #### H EMDF, NH33, PT, CMP3, LIPA4, CK3, TROPN, LACT3, MDIFF, PCAL #### [address] HCO3 molar conc (Bld) 30.3 mmol/L High 21.0-25.0 [facility] Comment on above: Performed By: #### H EMDF, NH33, PT, CMP3, LIPA4, CK3, TROPN, LACT3, MDIFF, PCAL #### [address] Hemoglobin mass conc (Bld) 13.1 g/dL Normal ScreenOnly [facility] Comment on above: Performed By: #### H EMDF, NH33, PT, CMP3, LIPA4, CK3, TROPN, LACT3, MDIFF, PCAL #### [address] Oxygen ppres (Bld) 430.1 mm[Hg] High 80.0-100.0 [facility] Comment on above: Performed By: #### H EMDF, NH33, PT, CMP3, LIPA4, CK3, TROPN, LACT3, MDIFF, PCAL #### [address] Oxygen saturation in Blood 99.6 % Normal 95.0-100.0 [facility] Comment on above: Performed By: #### H EMDF, NH33, PT, CMP3, LIPA4, CK3, TROPN, LACT3, MDIFF, PCAL #### [address] pCO2 40.2 mm[Hg] Normal 35.0-45.0 [facility] Comment on above: Performed By: #### H EMDF, NH33, PT, CMP3, LIPA4, CK3, TROPN, LACT3, MDIFF, PCAL #### [address] pH (Bld) 7.495 High 7.350-7.450 [facility] Comment on above: Performed By: #### H EMDF, NH33, PT, CMP3, LIPA4, CK3, TROPN, LACT3, MDIFF, PCAL #### [address] Std Base Excess 6.5 mmol/L High -3.0-3.0 [facility] Comment on above: Performed By: #### H EMDF, NH33, PT, CMP3, LIPA4, CK3, TROPN, LACT3, MDIFF, PCAL #### [address] FIO2 100% Normal [facility] Comment on above: Performed By: #### H EMDF, NH33, PT, CMP3, LIPA4, CK3, TROPN, LACT3, MDIFF, PCAL #### [address] CKon 12-04-2018 CK enzyme act/vol 247 U/L High 30-170 [facility] Comment on above: Performed By: #### H EMDF, NH33, PT, CMP3, LIPA4, CK3, TROPN, LACT3, MDIFF, PCAL #### [address] [address] CR Chest Portableon 12-04-19 CR Chest Portable Patient Name: ELIAS SHAH Diagnostic Radiology Exam Date/Time 12/04/2018 18:28:53 EST Exam CR Chest Portable Ordering Physician MD AVINA MAZEN E Accession Number [id number] CPT4 Codes 51649 () Reason For Exam s/p NG tube [...] Transcribed Date and Time: 12/04/2018 6:38 Normal [facility] CR Chest Portable Patient Name: ELIAS SHAH Diagnostic Radiology Exam Date/Time 12/04/2018 17:25:31 EST Exam CR Chest Portable Ordering Physician KAY OMER MD, DONALD L Accession Number [id number] CPT4 Codes 63145 () Reason For Exam pt with altered [...] Transcribed Date and Time: 12/04/2018 5:33 Normal [facility] CT Abdomen/Pelvis w/o Contra ston 12-04-2018 CT Abdomen/Pelvis w/o Contrast Patient Name: ELIAS SHAH CT Exam Date/Time 12/04/2018 16:38:[address] Abdomen/Pelvis (No PO, No IV) Ordering Physician KAY OMER MD, STELLA Hodges Accession Number [id number] CPT4 Codes 89595 (CT Abdomen/Pelvis (No PO, No IV)) Reason [...] Dictated: 12/04/2018 4:58 pm Dictating Physician: MD GUERRIRE JOE M Signed Date and Time: 12/04/2018 5:02 pm Signed by: MD GUERRIER JOE M Transcribed Date and Time: 12/04/2018 4:58 Normal [facility] CT Head or Brain w/o Contras ton 12-04-2018 CT Head or Brain w/o Contrast Patient Name: ELIAS SHAH CT Exam Date/Time 12/04/2018 16:38:[address] Head or Brain w/o Contrast Ordering Physician KAY OMER MD, STELLA Hodges Accession Number [id number] CPT4 Codes 42152 () Reason For Exam pt with altered [...] Transcribed Date and Time: 12/04/2018 4:45 Normal [facility] Comp Metabolic Panelon 12-04 ALP enzyme act/vol 110 U/L Normal 38-126 [facility] Comment on above: Performed By: #### H EMDF, NH33, PT, CMP3, LIPA4, CK3, TROPN, LACT3, MDIFF, PCAL #### [address] ALT enzyme act/vol 19 U/L Normal 13-69 [facility] Comment on above: Performed By: #### H EMDF, NH33, PT, CMP3, LIPA4, CK3, TROPN, LACT3, MDIFF, PCAL #### [address] [address] [place] Anion gap molar conc 21 Normal [facility] Comment on above: Performed By: #### H EMDF, NH33, PT, CMP3, LIPA4, CK3, TROPN, LACT3, MDIFF, PCAL #### [address] [place] AST enzyme act/vol 40 U/L Normal 15-46 [facility] Comment on above: Performed By: #### H EMDF, NH33, PT, CMP3, LIPA4, CK3, TROPN, LACT3, MDIFF, PCAL #### [address] [address] [place] Calcium mass conc 10.2 mg/dL Normal 8.4-10.4 [facility] Comment on above: Performed By: #### H EMDF, NH33, PT, CMP3, LIPA4, CK3, TROPN, LACT3, MDIFF, PCAL #### [address] [address] [place] CO2 molar conc 31 mmol/L High 22-30 [facility] Comment on above: Performed By: #### H EMDF, NH33, PT, CMP3, LIPA4, CK3, TROPN, LACT3, MDIFF, PCAL #### [address] [address] [place] [address] Glucose mass conc 170 mg/dL High 70-100 [facility] Comment on above: Performed By: #### H EMDF, NH33, PT, CMP3, LIPA4, CK3, TROPN, LACT3, MDIFF, PCAL #### [address] Protein mass conc 9.1 g/dL High 6.3-8.2 [facility] Comment on above: Performed By: #### H EMDF, NH33, PT, CMP3, LIPA4, CK3, TROPN, LACT3, MDIFF, PCAL #### [address] [address] [place], [place] Urea nitrogen mass conc 73 mg/dL High 7-20 [facility] Comment on above: Performed By: #### H EMDF, NH33, PT, CMP3, LIPA4, CK3, TROPN, LACT3, MDIFF, PCAL #### [address] [address] [place], [place] Bilirubin mass conc 1.0 mg/dL Normal 0.2-1.3 [facility] Comment on above: Performed By: #### H EMDF, NH33, PT, CMP3, LIPA4, CK3, TROPN, LACT3, MDIFF, PCAL #### [address] Creatinine mass conc 5.53 mg/dL High 0.52-1.25 [facility] Comment on above: Performed By: #### H EMDF, NH33, PT, CMP3, LIPA4, CK3, TROPN, LACT3, MDIFF, PCAL #### [address] GFR/1.73 sq M predicted among blacks MDRD vol rate/area (S/P/Bld) 12.1 mL/min/{1.73_m2} Normal >60 [facility] Comment on above: Performed By: #### H EMDF, NH33, PT, CMP3, LIPA4, CK3, TROPN, LACT3, MDIFF, PCAL #### [address] GFR/1.73 sq M predicted among non-blacks MDRD vol rate/area (S/P/Bld) 10.0 mL/min/{1.73_m2} Normal >60 [facility] Comment on above: Result Comment: Sour ce- MDRD equation with creatinine calibration to IDMS(NKDEP) eGFR not recommended for drug dose adjustment Performed By: #### H EMDF, NH33, PT, CMP3, LIPA4, CK3, TROPN, LACT3, MDIFF, PCAL #### [address] Albumin mass conc 4.8 g/dL Normal 3.5-5.0 [facility] Comment on above: Performed By: #### H EMDF, NH33, PT, CMP3, LIPA4, CK3, TROPN, LACT3, MDIFF, PCAL #### [address] Chloride molar conc 87 mmol/L Low 98-107 [facility] Comment on above: Performed By: #### H EMDF, NH33, PT, CMP3, LIPA4, CK3, TROPN, LACT3, MDIFF, PCAL #### [address] Potassium molar conc 3.4 mmol/L Low 3.5-5.1 [facility] Comment on above: Performed By: #### H EMDF, NH33, PT, CMP3, LIPA4, CK3, TROPN, LACT3, MDIFF, PCAL #### [address] Sodium molar conc 140 mmol/L Normal 135-145 [facility] Comment on above: Performed By: #### H EMDF, NH33, PT, CMP3, LIPA4, CK3, TROPN, LACT3, MDIFF, PCACarroll #### [address] [id number] ED Provider Noteon 9 Protein mass conc Emergency Department Encounter [facility] Patient: Elias Shah : [...] 2 and is in a-fib with rvr [facility] [employer] Elias Shah is a 78 y.o. male [...] eGFR 12.1 >60 mL/min EGFR IF NonAfrican [place] 10.0 >60 mL/min Calcium 10.2 8.4 - [...] 0.8 (L) 1.1 - 4.5 10*3/uL Absolute [place] # 2.9 (H) 0.2 - 1.1 10*3/uL [...] KAY OMER MD, STELLA Hodges Accession Number [id number] CPT4 Codes 08433 () Reason For Exam pt with altered [...] Physician MD KAILYN, MISHA Acevedo Accession Number [id number] CPT4 Codes 82337 () Reason For Exam s/p NG tube [...] KAY OMER MD, DONALD L Accession Number [id number] CPT4 Codes 08466 () Reason For Exam pt with altered [...] KAY OMER MD, DONALD L Accession Number [id number] CPT4 Codes 08930 (CT Abdomen/Pelvis (No PO, No IV)) Reason [...] DISPOSITION Decision To Admit 12/04/2018 03:03:44 PM @[facility]@ (Please note that portions of this note may have been completed with a voice recognition program. Efforts were made to edit the dictations but occasionally words are mis-transcribed.) Stella Bosch MD [employer] Stella Bosch MD 12/04/18 1900 Normal [facility] Hemogramon 12-04-2018 Erythrocyte distribution width Ratio (RBC) 15.5 % High 11.5-14.5 [facility] Comment on above: Performed By: #### H EMDF, NH33, PT, CMP3, LIPA4, CK3, TROPN, LACT3, MDIFF, PCAL #### [address] Hematocrit Volume Fraction (Bld) 40.0 % Normal 40.0-52.0 [facility] Comment on above: Performed By: #### H EMDF, NH33, PT, CMP3, LIPA4, CK3, TROPN, LACT3, MDIFF, PCAL #### [address] Hemoglobin mass conc (Bld) 13.2 g/dL Normal 13.0-18.0 [facility] Comment on above: Result Comment: repe ated Performed By: #### H EMDF, NH33, PT, CMP3, LIPA4, CK3, TROPN, LACT3, MDIFF, PCAL #### [address] MCH Entitic mass (RBC) 28.3 pg Normal 26.0-34.0 [facility] Comment on above: Performed By: #### H EMDF, NH33, PT, CMP3, LIPA4, CK3, TROPN, LACT3, MDIFF, PCAL #### [address] MCHC mass conc (RBC) 33.1 % Normal 32.0-36.0 [facility] Comment on above: Performed By: #### H EMDF, NH33, PT, CMP3, LIPA4, CK3, TROPN, LACT3, MDIFF, PCAL #### [address] MCV Entitic volume (RBC) 85.6 fL Normal 80.0-98.0 [facility] Comment on above: Performed By: #### H EMDF, NH33, PT, CMP3, LIPA4, CK3, TROPN, LACT3, MDIFF, PCAL #### [address] Platelet mean volume Entitic volume (Bld) 8.8 fL Normal 7.4-10.4 [facility] Comment on above: Performed By: #### H EMDF, NH33, PT, CMP3, LIPA4, CK3, TROPN, LACT3, MDIFF, PCAL #### [address] Platelets #/vol (Bld) 236 10*3/uL Normal 140-440 [facility] Comment on above: Performed By: #### H EMDF, NH33, PT, CMP3, LIPA4, CK3, TROPN, LACT3, MDIFF, PCAL #### [address] RBC #/vol (Bld) 4.67 10*6/uL Normal 4.40-5.90 [facility] Comment on above: Performed By: #### H EMDF, NH33, PT, CMP3, LIPA4, CK3, TROPN, LACT3, MDIFF, PCAL #### [address] WBC #/vol (Bld) 13.6 10*3/uL High 3.6-10.7 [facility] Comment on above: Performed By: #### H EMDF, NH33, PT, CMP3, LIPA4, CK3, TROPN, LACT3, MDIFF, PCAL #### [address] Hemogram w/ Autodiffon 12-04 Erythrocyte distribution width Ratio (RBC) 15.2 % High 11.5-14.5 [facility] Comment on above: Performed By: #### H EMDF, NH33, PT, CMP3, LIPA4, CK3, TROPN, LACT3, MDIFF, PCAL #### [address] Hematocrit Volume Fraction (Bld) 48.2 % Normal 40.0-52.0 [facility] Comment on above: Performed By: #### H EMDF, NH33, PT, CMP3, LIPA4, CK3, TROPN, LACT3, MDIFF, PCAL #### [address] Hemoglobin mass conc (Bld) 15.7 g/dL Normal 13.0-18.0 [facility] Comment on above: Performed By: #### H EMDF, NH33, PT, CMP3, LIPA4, CK3, TROPN, LACT3, MDIFF, PCAL #### [address] MCH Entitic mass (RBC) 28.2 pg Normal 26.0-34.0 [facility] Comment on above: Performed By: #### H EMDF, NH33, PT, CMP3, LIPA4, CK3, TROPN, LACT3, MDIFF, PCAL #### [address] MCHC mass conc (RBC) 32.6 % Normal 32.0-36.0 [facility] Comment on above: Performed By: #### H EMDF, NH33, PT, CMP3, LIPA4, CK3, TROPN, LACT3, MDIFF, PCAL #### [address] MCV Entitic volume (RBC) 86.6 fL Normal 80.0-98.0 [facility] Comment on above: Performed By: #### H EMDF, NH33, PT, CMP3, LIPA4, CK3, TROPN, LACT3, MDIFF, PCAL #### [address] Platelet mean volume Entitic volume (Bld) 9.3 fL Normal 7.4-10.4 [facility] Comment on above: Performed By: #### H EMDF, NH33, PT, CMP3, LIPA4, CK3, TROPN, LACT3, MDIFF, PCAL #### [address] Platelets #/vol (Bld) 320 10*3/uL Normal 140-440 [facility] Comment on above: Performed By: #### H EMDF, NH33, PT, CMP3, LIPA4, CK3, TROPN, LACT3, MDIFF, PCAL #### [address] RBC #/vol (Bld) 5.57 10*6/uL Normal 4.40-5.90 [facility] Comment on above: Performed By: #### H EMDF, NH33, PT, CMP3, LIPA4, CK3, TROPN, LACT3, MDIFF, PCAL #### [facility] [address] [place], [place] WBC #/vol (Bld) 15.2 10*3/uL High 3.6-10.7 [facility] Comment on above: Performed By: #### H EMDF, NH33, PT, CMP3, LIPA4, CK3, TROPN, LACT3, MDIFF, PCAL #### [place] [address] [place], [place] Lactic Acidon 12-04-2018 Lactate molar conc 1.6 mmol/L Normal 0.7-2.0 [facility] Comment on above: Performed By: #### H EMDF, NH33, PT, CMP3, LIPA4, CK3, TROPN, LACT3, MDIFF, PCAL #### [place] [address] [place], [place] Lactate molar conc 3.5 mmol/L Critically high 0.7-2.0 [facility] Comment on above: Result Comment: Repe ated Performed By: #### H EMDF, NH33, PT, CMP3, LIPA4, CK3, TROPN, LACT3, MDIFF, PCAL #### [place] [address] [place], [place] Lipaseon 12-04-2018 Lipase enzyme act/vol 257 U/L Normal 23-300 [facility] Comment on above: Performed By: #### H EMDF, NH33, PT, CMP3, LIPA4, CK3, TROPN, LACT3, MDIFF, PCAL #### [address] Manual Diffon 12-04-2018 Abs Neutrophile Cnt 11.6 10*3/uL High 2.2-8.2 [facility] Comment on above: Performed By: #### H EMDF, NH33, PT, CMP3, LIPA4, CK3, TROPN, LACT3, MDIFF, PCAL #### [place] [address] [place], [place] Anisocytosis Ql (Bld) Slight Normal [facility] Comment on above: Performed By: #### H EMDF, NH33, PT, CMP3, LIPA4, CK3, TROPN, LACT3, MDIFF, PCAL #### [address] Lymphocytes #/vol (Bld) 0.8 10*3/uL Low 1.1-4.5 [facility] Comment on above: Performed By: #### H EMDF, NH33, PT, CMP3, LIPA4, CK3, TROPN, LACT3, MDIFF, PCAL #### [address] Lymphocytes/100 WBC (Bld) 5 % Low 20-40 [facility] Comment on above: Performed By: #### H EMDF, NH33, PT, CMP3, LIPA4, CK3, TROPN, LACT3, MDIFF, PCAL #### [address] [place] [address] [place], [place] Monocytes #/vol (Bld) 2.9 10*3/uL High 0.2-1.1 [facility] Comment on above: Performed By: #### H EMDF, NH33, PT, CMP3, LIPA4, CK3, TROPN, LACT3, MDIFF, PCAL #### [place] [address] [place], [place] Monocytes/100 WBC (Bld) 19 % High 2-10 [facility] Comment on above: Performed By: #### H EMDF, NH33, PT, CMP3, LIPA4, CK3, TROPN, LACT3, MDIFF, PCAL #### [address] RBC morphology finding Nom (Bld) Normal Normal [facility] Comment on above: Performed By: #### H EMDF, NH33, PT, CMP3, LIPA4, CK3, TROPN, LACT3, MDIFF, PCAL #### [address] Seg Neutrophils 76 % Normal 40-80 [facility] Comment on above: Performed By: #### H EMDF, NH33, PT, CMP3, LIPA4, CK3, TROPN, LACT3, MDIFF, PCAL #### [address] Abs Baso Cnt 0.0 10*3/uL Normal 0.0-0.2 [facility] Comment on above: Performed By: #### H EMDF, NH33, PT, CMP3, LIPA4, CK3, TROPN, LACT3, MDIFF, PCAL #### [address] Bands 0 % Normal 0-3 [facility] Comment on above: Performed By: #### H EMDF, NH33, PT, CMP3, LIPA4, CK3, TROPN, LACT3, MDIFF, PCAL #### [address] Basophils/100 WBC (Bld) 0 % Normal 0-2 [facility] Comment on above: Performed By: #### H EMDF, NH33, PT, CMP3, LIPA4, CK3, TROPN, LACT3, MDIFF, PCAL #### [address] Cells counted 100 Normal [facility] Comment on above: Performed By: #### H EMDF, NH33, PT, CMP3, LIPA4, CK3, TROPN, LACT3, MDIFF, PCAL #### [address] Eosinophils #/vol (Bld) 0.0 10*3/uL Normal 0.0-0.5 [facility] Comment on above: Performed By: #### H EMDF, NH33, PT, CMP3, LIPA4, CK3, TROPN, LACT3, MDIFF, PCAL #### [address] Eosinophils/100 WBC (Bld) 0 % Low 1-6 [facility] Comment on above: Performed By: #### H EMDF, NH33, PT, CMP3, LIPA4, CK3, TROPN, LACT3, MDIFF, PCAL #### [address] Procalcitoninon 12-04-2018 Protein mass conc 0.79 ng/mL Abnormal <0.10 [facility] Comment on above: Performed By: #### H EMDF, NH33, PT, CMP3, LIPA4, CK3, TROPN, LACT3, MDIFF, PCAL #### [address] Interpretation See Below Normal [facility] Comment on above: Result Comment: PCT <0.50 = Low risk of severe sepsis and/or septic shock. PCT >2.00 = High risk of severe sepsis and/or septic shock. Performed By: #### H EMDF, NH33, PT, CMP3, LIPA4, CK3, TROPN, LACT3, MDIFF, PCAL #### [address] Prothrombin Timeon 9 INR Coag RelTime (PPP) 1.2 High 0.9-1.1 [facility] Comment on above: Result Comment: Gonzalo [...] LIPA4, CK3, TROPN, LACT3, MDIFF, PCAL #### [address] Prothrombin time (PT) Coag time (PPP) 11.9 s Normal 9.0-12.0 [facility] Comment on above: Result Comment: . Performed By: #### H EMDF, NH33, PT, CMP3, LIPA4, CK3, TROPN, LACT3, MDIFF, PCAL #### [facility] [address] [place] [address] Surgical Pathologyon 019 Surgical Pathology [id number] [facility] PATHOLOGY AND [facility]ORATORY MEDICINE [address] 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 MARGINS: UNREMARKABLE. PORTIONS OF FIBROADIPOSE, CONSISTENT WITH HERNIA SAC. NEGATIVE FOR MALIGNANCY. IA/JAF Signature> RANDAL GAN M.D. CLINICAL INFORMATION: Not [...] of hemorrhage or friability are identified. Multiple benefits representative sections of the specimen are submitted in three cassettes as follows: block 1 section adjacent to each stapled suture line, block 2 sections of the small bowel segment including areas of transition near each end; block 3 section of fibrofatty soft tissue. (bits ss, 3) [facility] Disclaimer: The following statement applies to all immunohistochemistry, in situ hybridization, molecular studies, and immunofluorescence testing. The use of one or more reagents in the above tests is regulated as an analyte specific reagent (ASR). These tests were developed and their performance characteristics determined by the clinical laboratories of [facility]. They have not been cleared by [...] negativity on decalcified specimens. Professional Performing Location: [address] [address]. DEPARTMENT OF PATHOLOGY AND LABORATORY MEDICINE [place], [place] [address] Normal [facility] TS GELon 12-04-2018 TS GEL ABO Group: O Rh, Gel: POS Antibody Screen Gel: NEG Normal [facility] Comment on above: Performed By: #### H EMDF, NH33, PT, CMP3, LIPA4, CK3, TROPN, LACT3, MDIFF, PCAL #### [facility] [address] [place] [address] Troponin Ion 12-04-2018 Troponin I.cardiac mass conc 0.947 ng/mL High 0.000-0.034 [facility] Comment on above: Result Comment: 0.04 6 - 0.400 = Indeterminate > 0.400 = Consider Myocardial Injury Performed By: #### H EMDF, NH33, PT, CMP3, LIPA4, CK3, TROPN, LACT3, MDIFF, PCAL #### [facility] [address] [place] [address] No Panel Information Influenza Types A,B Direct FA (RYLAN) [facility] Work Phone: RSV Ag EIA RSV Ag Immune stain Ql (Tiss) [facility] Work Phone: Vital Signs Date Time Vital Sign Value Performing Clinician Faci lity 08-24-2025 11:42-0400 Body temperature 96.3 [degF] Dr. Geoffrey Garza MD Work Phone: [facility] 08-24-2025 11:42-0400 Diastolic blood pressure 69 mm[Hg] Dr. Geoffrey Garza MD Work Phone: [facility] 08-24-2025 11:42-0400 Heart rate 87 /min Dr. Geoffrey Garza MD Work Phone: [facility] 08-24-2025 11:42-0400 Respiratory rate 14 /min Dr. Geoffrey Garza MD Work Phone: [facility] 08-24-2025 11:42-0400 SaO2% (BldA) [Mass fraction] 98 % Dr. Geoffrey Garza MD Work Phone: [facility] 08-24-2025 11:42-0400 Systolic blood pressure 128 mm[Hg] Dr. Geoffrey Garza MD Work Phone: 8(731)521-288220 [place] [address] 08-24-2025 09:50-0400 Body height 175.[address] Geoffrey Garza MD Work Phone: 8(318)838-390695 [place] [address] 08-24-2025 09:50-0400 Body mass index (BMI) [Ratio] 27 kg/m2 Dr. Geoffrey Garza MD Work Phone: 0(211)570-734295 [place] [address] 08-24-2025 09:50-0400 Body weight [address] Geoffrey Garza MD Work Phone: 6(392)787-436095 [place] [address] 08-24-2025 08:50-0400 Body temperature 97.3 [degF] Dr. Geoffrey Garza MD Work Phone: 1(116)064-538595 [place] [address] 08-24-2025 08:50-0400 Body weight 90.[address] Geoffrey Garza MD Work Phone: 7(330)511-883395 [place] [address] 08-24-2025 08:50-0400 Diastolic blood pressure 64 mm[Hg] Dr. Geoffrey Garza MD Work Phone: 6(443)479-139895 [place] [address] 08-24-2025 08:50-0400 Heart rate 98 /min Dr. Geoffrey Garza MD Work Phone: 5(401)056-759320 [place] [address] 08-24-2025 08:50-0400 Respiratory rate 14 /min Dr. Geoffrey Garza MD Work Phone: 3(455)905-690320 [place] [address] 08-24-2025 08:50-0400 SaO2% (BldA) [Mass fraction] 97 % Dr. Geoffrey Garza MD Work Phone: 1(051)201-510920 [place] [address] 08-24-2025 08:50-0400 Systolic blood pressure 111 mm[Hg] Dr. Geoffrey Garza MD Work Phone: 5(909)875-581995 [place] [address] 08-08-2025 14:06-0400 Body temperature 98 [degF] Dr. Geoffrey Garza MD Work Phone: [facility] 08-08-2025 14:06-0400 Diastolic blood pressure 65 mm[Hg] Dr. Geoffrey Garza MD Work Phone: [facility] 08-08-2025 14:06-0400 Heart rate 84 /min Dr. Geoffrey Garza MD Work Phone: [facility] 08-08-2025 14:06-0400 Respiratory rate 16 /min Dr. Geoffrey Garza MD Work Phone: 1(644)253-576214 [address] 08-08-2025 14:06-0400 SaO2% (BldA) [Mass fraction] 100 % Dr. Geoffrey Garza MD Work Phone: 4(222)978-597814 [address] 08-08-2025 14:06-0400 Systolic blood pressure 137 mm[Hg] Dr. Geoffrey Garza MD Work Phone: 8(243)872-584995 [place] [address] 08-07-2025 11:20-0400 Body height 175.[address] Geoffrey Garza MD Work Phone: 5(192)403-136895 [place] [address] 08-07-2025 11:20-0400 Body weight 91.[address] Geoffrey Garza MD Work Phone: 4(855)328-940914 [address] 08-07-2025 08:08-0400 Body temperature 97.3 [degF] Dr. Geoffrey Garza MD Work Phone: 3(476)737-719020 [place] [address] 08-07-2025 08:08-0400 Diastolic blood pressure 92 mm[Hg] Dr. Geoffrey Garza MD Work Phone: 5(454)939-360614 [address] 08-07-2025 08:08-0400 Heart rate 111 /min Dr. Geoffrey Garza MD Work Phone: [facility] 08-07-2025 08:08-0400 Respiratory rate 17 /min Dr. Geoffrey Garza MD Work Phone: [facility] 08-07-2025 08:08-0400 SaO2% (BldA) [Mass fraction] 98 % Dr. Geoffrey Garza MD Work Phone: [facility] 08-07-2025 08:08-0400 Systolic blood pressure 135 mm[Hg] Dr. Geoffrey Garza MD Work Phone: [facility] 08-04-2025 17:53-0400 Body height 175.[address] Geoffrey Garza MD Work Phone: 8(798)295-618514 [address] 08-04-2025 17:53-0400 Body mass index (BMI) [Ratio] 29.7 kg/m2 Dr. Geoffrey Garza MD Work Phone: 4(520)372-894795 [place] [address] 08-04-2025 17:53-0400 Body weight 91.[address] Geoffrey Garza MD Work Phone: 6(013)618-455495 [place] [address] 08-04-2025 16:43-0400 Body temperature 97.9 [degF] Dr. Geoffrey Garza MD Work Phone: 5(717)675-304720 [place] [address] 08-04-2025 16:43-0400 Diastolic blood pressure 71 mm[Hg] Dr. Geoffrey Garza MD Work Phone: [facility] 08-04-2025 16:43-0400 Heart rate 89 /min Dr. Geoffrey Garza MD Work Phone: [facility] 08-04-2025 16:43-0400 Respiratory rate 18 /min Dr. Geoffrey Garza MD Work Phone: [facility] 08-04-2025 16:43-0400 SaO2% (BldA) [Mass fraction] 97 % Dr. Geoffrey Garza MD Work Phone: [facility] 08-04-2025 16:43-0400 Systolic blood pressure 125 mm[Hg] Dr. Geoffrey Garza MD Work Phone: [facility] 08-04-2025 14:29-0400 Diastolic blood pressure 64 mm[Hg] Dr. Geoffrey Garza MD Work Phone: [facility] 08-04-2025 14:29-0400 Heart rate 92 /min Dr. Geoffrey Garza MD Work Phone: [facility] 08-04-2025 14:29-0400 Respiratory rate 19 /min Dr. Geoffrey Garza MD Work Phone: [facility] 08-04-2025 14:29-0400 SaO2% (BldA) [Mass fraction] 96 % Dr. Geoffrey Garza MD Work Phone: 4(228)818-087620 [place] [address] 08-04-2025 14:29-0400 Systolic blood pressure 115 mm[Hg] Dr. Geoffrey Garza MD Work Phone: 4(479)512-462995 [place] [address] 08-04-2025 11:43-0400 Body height 175.[address] Geoffrey Garza MD Work Phone: 1(690)370-153795 [place] [address] 08-04-2025 11:43-0400 Body mass index (BMI) [Ratio] 29.7 kg/m2 Dr. Geoffrey Garza MD Work Phone: 2(631)143-502520 [place] [address] 08-04-2025 11:43-0400 Body temperature 98.5 [degF] Dr. Geoffrey Garza MD Work Phone: 9(500)044-385720 [place] [address] 08-04-2025 11:43-0400 Body weight 91.[address] Geoffrey Garza MD Work Phone: 9(138)348-083720 [place] [address] 08-02-2025 07:05-0400 Body height 175.[address] Geoffrey Garza MD Work Phone: 3(756)898-467495 [place] [address] 08-02-2025 07:05-0400 Body weight 94.[address] Geoffrey Garza MD Work Phone: 2(982)189-221595 [place] [address] 08-01-2025 15:02-0400 Body temperature 99.3 [degF] Dr. Geoffrey Garza MD Work Phone: 9(329)474-518320 [place] [address] 08-01-2025 15:02-0400 Body weight 92.[address] Geoffrey Garza MD Work Phone: [facility] 08-01-2025 15:02-0400 Diastolic blood pressure 55 mm[Hg] Dr. Geoffrey Garza MD Work Phone: [facility] 08-01-2025 15:02-0400 Heart rate 69 /min Dr. Geoffrey Garza MD Work Phone: [facility] 08-01-2025 15:02-0400 Respiratory rate 14 /min Dr. Geoffrey Garza MD Work Phone: 6(817)857-591620 [place] [address] 08-01-2025 15:02-0400 SaO2% (BldA) [Mass fraction] 96 % Dr. Geoffrey Garza MD Work Phone: 1(373)113-571920 [place] [address] 08-01-2025 15:02-0400 Systolic blood pressure 124 mm[Hg] Dr. Geoffrey Garza MD Work Phone: 7(164)409-180020 [place] [address] 08-01-2025 08:29-0400 Body mass index (BMI) [Ratio] 30.8 kg/m2 Dr. Geoffrey Garza MD Work Phone: 2(854)589-049895 [place] [address] 07-27-2025 20:22-0400 Body temperature 98.8 [degF] Dr. Geoffrey Garza MD Work Phone: 1(510)640-430695 [place] [address] 07-27-2025 20:22-0400 Diastolic blood pressure 75 mm[Hg] Dr. Geoffrey Garza MD Work Phone: [facility] 07-27-2025 20:22-0400 Heart rate 73 /min Dr. Geoffrey Garza MD Work Phone: 3(927)751-917120 [place] [address] 07-27-2025 20:22-0400 Respiratory rate 21 /min Dr. Geoffrey Garza MD Work Phone: [facility] 07-27-2025 20:22-0400 SaO2% (BldA) [Mass fraction] 95 % Dr. Geoffrey Garza MD Work Phone: 6(202)146-774398 [place] [address] 07-27-2025 20:22-0400 Systolic blood pressure 163 mm[Hg] Dr. Geoffrey Garza MD Work Phone: [facility] 07-27-2025 14:22-0400 Body height 175.[address] Geoffrey Garza MD Work Phone: [facility] 07-27-2025 14:22-0400 Body mass index (BMI) [Ratio] 26.9 kg/m2 Dr. Geoffrey Garza MD Work Phone: [facility] 07-27-2025 14:22-0400 Body weight 82.[address] Geoffrey Garza MD Work Phone: 3(218)736-908620 [place] [address] 06-22-2025 10:01-0400 Body height 175.[address] Geoffrey Garza MD Work Phone: 4(190)816-484220 [place] [address] 06-22-2025 10:01-0400 Body mass index (BMI) [Ratio] 29.9 kg/m2 Dr. Geoffrey Garza MD Work Phone: [facility] 06-22-2025 10:01-0400 Body weight 92.[address] Geoffrey Garza MD Work Phone: [facility] 06-22-2025 10:01-0400 Diastolic blood pressure 76 mm[Hg] Dr. Geoffrey Garza MD Work Phone: [facility] 06-22-2025 10:01-0400 Heart rate 65 /min Dr. Geoffrey aGrza MD Work Phone: [facility] 06-22-2025 10:01-0400 Respiratory rate 18 /min Dr. Geoffrey Garza MD Work Phone: [facility] 06-22-2025 10:01-0400 Systolic blood pressure 119 mm[Hg] Dr. Geoffrey Garza MD Work Phone: [facility] 05-22-2025 10:44-0400 Body height 175.[address] Geoffrey Garza MD Work Phone: [facility] 05-22-2025 10:44-0400 Body mass index (BMI) [Ratio] 29.6 kg/m2 Dr. Geoffrey Garza MD Work Phone: [facility] 05-22-2025 10:44-0400 Body temperature 98.2 [degF] Dr. Geoffrey Garza MD Work Phone: [facility] 05-22-2025 10:44-0400 Body weight 90.[address] Geoffrey Garza MD Work Phone: [facility] 05-22-2025 10:44-0400 Diastolic blood pressure 65 mm[Hg] Dr. Geoffrey Garza MD Work Phone: [facility] 05-22-2025 10:44-0400 Heart rate 59 /min Dr. Geoffrey Garza MD Work Phone: [facility] 05-22-2025 10:44-0400 Respiratory rate 16 /min Dr. Geoffrey Garza MD Work Phone: [facility] 05-22-2025 10:44-0400 SaO2% (BldA) [Mass fraction] 95 % Dr. Geoffrey Garza MD Work Phone: [facility] 05-22-2025 10:44-0400 Systolic blood pressure 160 mm[Hg] Dr. Geoffrey Garza MD Work Phone: [facility] 07-13-2023 14:42-0400 Body height 175.26 cm MD Husam Khan [facility] 07-13-2023 14:42-0400 Body mass index (BMI) [Ratio] 29.5 kg/m2 MD Husam Khan [facility] 07-13-2023 14:42-0400 Body temperature 97.5 [degF] MD Husam Khan [facility] 07-13-2023 14:42-0400 Body weight 90.71 kg MD Husam Khan [facility] 07-13-2023 14:42-0400 Diastolic blood pressure 75 mm[Hg] [facility] 07-13-2023 14:42-0400 Heart rate 82 /min [facility] 07-13-2023 14:42-0400 Respiratory rate 16 /min [facility] 07-13-2023 14:42-0400 SaO2% (BldA) [Mass fraction] 97 % [facility] 07-13-2023 14:42-0400 Systolic blood pressure 154 mm[Hg] [facility] 03-18-2023 14:00-0400 Body mass index (BMI) [Ratio] 29.2 kg/m2 [facility] 03-18-2023 14:00-0400 Body weight 89.89 kg [facility] 03-18-2023 14:00-0400 Diastolic blood pressure 73 mm[Hg] [facility] [place] [facility] 03-18-2023 14:00-0400 Heart rate 60 /min [facility] [place] [facility] 03-18-2023 14:00-0400 Respiratory rate 18 /min [facility] [place] [facility] 03-18-2023 14:00-0400 Systolic blood pressure 156 mm[Hg] [facility] [place] [facility] 09-23-2022 10:21-0400 Body height 175.26 cm [facility] Work Phone: 09-23-2022 10:21-0400 Body mass index (BMI) [Ratio] 29.5 kg/m2 [facility] Work Phone: 09-23-2022 10:21-0400 Body weight 90.71 kg [facility] Work Phone: 09-23-2022 10:21-0400 Diastolic blood pressure 6 mm[Hg] [facility] Work Phone: 09-23-2022 10:21-0400 Heart rate 59 /min [facility] Work Phone: 09-23-2022 10:21-0400 Respiratory rate 18 /min [facility] Work Phone: 09-23-2022 10:21-0400 SaO2% (BldA) [Mass fraction] 96 % [facility] Work Phone: 09-23-2022 10:21-0400 Systolic blood pressure 137 mm[Hg] [facility] Work Phone: 07-14-2022 14:28-0400 Body height 175.26 cm [facility] Work Phone: 07-14-2022 14:22-0400 Body mass index (BMI) [Ratio] 29.3 kg/m2 [facility] Work Phone: 07-14-2022 14:22-0400 Body temperature 98.6 [degF] [facility] Work Phone: 07-14-2022 14:22-0400 Body weight 90.26 kg [facility] Work Phone: 07-14-2022 14:22-0400 Diastolic blood pressure 65 mm[Hg] [facility] Work Phone: 07-14-2022 14:22-0400 Heart rate 62 /min [facility] Work Phone: 07-14-2022 14:22-0400 Respiratory rate 15 /min [facility] Work Phone: 07-14-2022 14:22-0400 SaO2% (BldA) [Mass fraction] 94 % [facility] Work Phone: 07-14-2022 14:22-0400 Systolic blood pressure 162 mm[Hg] [facility] Work Phone: 01-14-2022 11:57-0500 Body height 175.26 cm [facility] Work Phone: 01-14-2022 11:57-0500 Body weight 93.89 kg [facility] Work Phone: 01-14-2022 11:57-0500 Diastolic blood pressure 67 mm[Hg] [facility] Work Phone: 01-14-2022 11:57-0500 Heart rate 55 /min [facility] Work Phone: 01-14-2022 11:57-0500 Respiratory rate 18 /min [facility] Work Phone: 01-14-2022 11:57-0500 SaO2% (BldA) [Mass fraction] 96 % [facility] Work Phone: 01-14-2022 11:57-0500 Systolic blood pressure 172 mm[Hg] [facility] Work Phone: 01-13-2022 14:12-0500 Body mass index (BMI) [Ratio] 30.6 kg/m2 [facility] Work Phone: 01-13-2022 14:12-0500 Body temperature 98.2 [degF] [facility] Work Phone: 01-13-2022 14:12-0500 Body weight 94 kg [facility] Work Phone: 01-13-2022 14:12-0500 Diastolic blood pressure 78 mm[Hg] [facility] Work Phone: 01-13-2022 14:12-0500 Heart rate 57 /min [facility] Work Phone: 01-13-2022 14:12-0500 Respiratory rate 16 /min MD Weiner Bill [facility] Work Phone: 01-13-2022 14:12-0500 SaO2% (BldA) [Mass fraction] 96 % [facility] Work Phone: 01-13-2022 14:12-0500 Systolic blood pressure 159 mm[Hg] [facility] Work Phone: 06-27-2021 14:22-0400 Body mass index (BMI) [Ratio] 30.6 kg/m2 Dr. Geoffrey Garza MD Work Phone: [facility] 06-27-2021 14:22-0400 Body mass index (BMI) [Ratio] 30.6 kg/m2 [facility] Work Phone: 06-14-2021 14:45-0400 Body mass index (BMI) [Ratio] 29.5 kg/m2 [facility] Work Phone: 02-18-2021 14:45-0400 Body mass index (BMI) [Ratio] 29.8 kg/m2 [facility] Work Phone: Encounters Encounter Date Encounter Type Care Provider Facility Start: 01-02-2026 ambulatory Husam Chi Bill Facility:[facility] Start: 09-29-2025 ambulatory Husam Chi Bill Facility:[facility] Start: 09-27-2025 ambulatory Husam Chi Bill Facility:[facility] Start: 09-25-2025 ambulatory Husam Chi Bill Facility:[facility] Start: 09-22-2025 ambulatory Husam Chi Bill Facility:[facility] Start: 09-20-2025 ambulatory Husam Chi Bill [facility] Start: 09-20-2025 End: 09-23-2025 Evaluation and management of inpatient Lesley L Margarita Facility:[facility] Start: 09-19-2025 ambulatory Lesley L White Facility :[facility] Start: 09-18-2025 End: 09-18-2025 ambulatory Valdez BACON Facility:[facility] Start: 09-11-2025 ambulatory Valdez BACON Facil ity:[facility] Start: 09-06-2025 ambulatory Ianreynaldo Pang OLS Fa cility:[facility] Start: 09-01-2025 ambulatory Channing Mckeon Facility:[facility] Start: 09-01-2025 End: 09-01-2025 ambulatory Husam Chi Bill Facility:[facility] Start: 08-30-2025 ambulatory Trixie Castanedamiranda OLS Fa cility:[facility] Start: 08-25-2025 ambulatory Serene Dubois OLS Fac ility:[facility] Start: 08-24-2025 End: 08-24-2025 Venecia MCCRAY -[facility] Work Phone: Start: 08-24-2025 End: 08-24-[address] Geoffrey Garza MD Work Phone: -[facility] Start: 08-23-2025 ambulatory Bandarnicolreynaldo Pang OLS Fa cility:[facility] Start: 08-23-2025 Trixie Taylor Start: 08-21-2025 End: 08-21-2025 ambulatory Husam Chi Bill Facility:[facility] Start: 08-16-2025 ambulatory Trixie BACON Fa cility:[facility] Start: 08-16-2025 Trixie Taylor Start: 08-15-2025 End: 08-15-2025 ambulatory Husam Chi Bill Facility:[facility] Start: 08-11-2025 End: 08-11-[address] Geoffrey Garza MD Work Phone: -Cardiovascular Services Start: 08-11-2025 End: 08-11-2025 Dr. Kenan Santamaria MD -[facility] Start: 08-11-2025 End: 08-11-2025 ambulatory Husam Chi Bill Facility:[facility] Start: 08-09-2025 End: 08-09-2025 ambulatory Husam Chi Bill Facility:[facility] Start: 08-09-2025 ambulatory Husam Chi Bill Facility:[facility] Start: 08-09-2025 Trixie Popeon Start: 08-08-2025 Non-patient / Non-visit Dr. Pedro Banegas MD [facility] Work Phone: Start: 08-08-2025 Dr. Pedro Banegas MD [facility] Work Phone: Start: 08-07-2025 Non-patient / Non-visit Dr. Pedro Banegas MD [facility] Work Phone: Start: 08-07-2025 Dr. Pedro Banegas MD [facility] Work Phone: Start: 08-06-2025 Non-patient / Non-visit Dr. Pedro Banegas MD [facility] Work Phone: Start: 08-06-2025 Dr. Pedro Banegas MD [facility] Work Phone: Start: 08-05-2025 Non-patient / Non-visit Dr. Alannah Adams MD [facility] Work Phone: Start: 08-05-2025 Dr. Jim Adams MD [facility] Work Phone: Start: 08-05-2025 ambulatory Husam Chi Bill [facility] Start: 08-05-2025 End: 08-08-2025 Evaluation and management of inpatient Dr. Pedro Banegas MD -[facility] 3 Work Phone: Start: 08-05-2025 End: 08-08-2025 Dr. Pedro Banegas MD [facility] Work Phone: Start: 08-04-2025 ambulatory Husam Chi Bill Facility:[facility] Start: 08-04-2025 Evaluation and management of inpatient Dr. Morgan Dubon DO [facility] Work Phone: Start: 08-04-2025 Non-patient / Non-visit Dr. Camarena [facility] Work Phone: Start: 08-04-[address] Leroy Garza MD Work Phone: -Medical Surgical 3 Start: 08-04-2025 Dr. Morgan Dubon DO -[facility] Work Phone: Start: 08-04-2025 Emergency department patient visit Dr. Geoffrey Garza MD Work Phone: -Emergency Department Work Phone: Start: 08-02-2025 ambulatory Husam Khan Facility:[facility] Start: 08-02-2025 Non-patient / Non-visit Dr. Channing sanchez MD -[facility] Start: 08-02-2025 Dr. Channing Mckeon MD -[facility] Start: 08-02-2025 End: 08-02-2025 Admission to same day surgery center Dr. Channing Mckeon MD -[facility] Work Phone: Start: 08-02-2025 End: 08-02-2025 Dr. Channing Mckeon MD -[facility] Work Phone: Start: 08-02-2025 End: 08-02-[address] Geoffrey Garza MD Work Phone: -[facility] Start: 08-01-2025 End: 08-01-[address] Channing Mckeon MD -[facility] Work Phone: Start: 08-01-2025 End: 08-01-2025 Dr. Channing Mckeon MD -[facility] Work Phone: Start: 08-01-2025 End: 08-01-[address] Geoffrey Garza MD Work Phone: -[facility] Start: 07-27-2025 End: 07-27-2025 Dr. Ilana Medrano DO -Emergency Departct nt Work Phone: Start: 07-27-2025 End: 07-27-2025 Emergency department patient visit Dr. Geoffrey Garza MD Work Phone: -Emergency Department Work Phone: Start: 07-27-2025 Non-patient / Non-visit Dr. Channing sanchez MD -[facility] Start: 07-27-2025 End: 07-27-[address] Geoffrey Garza MD Work Phone: -Cardiovascular Services Start: 07-27-2025 End: 07-27-[address] Husam Khan MD -Cardiovascular Services Work Phone: Start: 07-27-2025 End: 07-27-2025 Dr. Channing Mckeon MD -[facility] Start: 07-26-2025 End: 07-27-[address] Geoffrey Garza MD Work Phone: -Laboratory Phy Office 3rd Flr Start: 07-26-2025 End: 07-26-[address] Husam Khan MD -Laboratory Phy Office 3rd Flr Start: 07-26-2025 End: 07-26-2025 Dr. Husam Khan MD -Laboratory Phy Offi ce 3rd Flr Start: 07-26-2025 End: 07-26-2025 ambulatory Husam Khan Facility:[facility] Start: 06-22-2025 End: 06-22-2025 Patient encounter procedure La Hernández RI -[facility] Work Phone: Start: 06-22-2025 End: 06-22-2025 aL Hernández RI -[facility] Work Phone: Start: 06-22-2025 End: 06-22-[address] Geoffrey Garza MD Work Phone: -[facility] Start: 05-22-2025 End: 05-22-[address] Geoffrey Garza MD -[facility] Work Phone: Start: 05-22-2025 End: 05-22-2025 Dr. Geoffrey Garza MD -[facility] Work Phone: Start: 05-22-2025 End: 05-22-[address] Geoffrey Garza MD Work Phone: -[facility] Start: 05-04-[address] Andrea Garza MD -[facility] Start: 05-04-2025 Dr. Geoffrey malone MD -[facility] Start: 05-04-2025 ambulatory [facility] Facility:[facility] Start: 12-29-2024 End: 12-29-[address] Husam Khan MD -Laboratory Phy Office 3rd Flr Start: 12-29-2024 End: 12-29-2024 ambulatory [facility] Facility:[facility] Start: 09-02-2023 End: 09-02-[address] Husam Khan Work Phone: [facility] Work Phone: Start: 09-02-2023 End: 09-02-[address] Husam Khan Work Phone: [facility]-Laboratory Work Phone: Start: 07-13-2023 End: 07-13-2023 Patient encounter procedure MD Husam BACON [facility] Work Phone: Start: 07-07-2023 End: 07-07-2023 ambulatory MD Husam Khan [facility] Work Phone: Start: 07-07-2023 End: 07-07-2023 Patient encounter procedure MD Husam BACON [facility]-Laboratory Work Phone: Start: 06-25-2023 End: 06-25-2023 Patient encounter procedure MD Husam BACON [facility]-Laboratory, Phy Office 3rd Flr Start: 03-18-2023 End: 03-18-2023 Patient encounter procedure MD Husam BACON [facility] Work Phone: Start: 02-10-2023 End: 02-10-2023 ambulatory [facility] Work Phone: Start: 02-10-2023 End: 02-10-2023 Patient encounter procedure [facility]-Laboratory, Phy Office 3rd Flr Start: 12-25-2022 End: 12-25-2022 Patient encounter procedure [facility]-Laboratory, Phy Office 3rd Flr Start: 10-20-2022 End: 10-20-2022 ambulatory [facility] Work Phone: Start: 10-20-2022 End: 10-20-2022 Patient encounter procedure [facility]-Pulmonary Services/Neurology Start: 10-02-2022 Non-patient / Non-visit [facility] Start: 10-02-2022 End: 10-02-2022 ambulatory [facility] Work Phone: Start: 10-02-2022 End: 10-02-2022 Patient encounter procedure [facility]-Cardiovascular Services Start: 09-23-2022 End: 09-23-2022 Patient encounter procedure [facility] Start: 08-12-2022 End: 08-12-2022 ambulatory [facility] Work Phone: Start: 08-12-2022 End: 08-12-2022 Patient encounter procedure [facility] Start: 07-14-2022 End: 07-14-2022 Patient encounter procedure [facility] Start: 07-08-2022 End: 07-08-2022 ambulatory [facility] Work Phone: Start: 07-08-2022 End: 07-08-2022 Patient encounter procedure [facility] Start: 06-19-2022 End: 06-19-2022 Patient encounter procedure [facility]-Laboratory, Phy Office 3rd Flr Start: 03-04-2022 End: 03-04-2022 Patient encounter procedure [facility]-Laboratory, Phy Office 3rd Flr Start: 01-14-2022 End: 01-14-2022 [facility] Start: 01-13-2022 End: 01-13-2022 Patient encounter procedure MD Husam Khan [facility] Start: 01-08-2022 Registered Recurring MD Husam Khan [facility] Start: 11-11-2021 Patient encounter procedure MD Husam Khan [facility]-Laboratory Start: 12-04-2018 Evaluation and management of inpatient [facility] Procedures Date Procedure Procedure Detail Performing [...] Work Phone: Start: 05-04-2025 Blood count smear rscp w/mnl difrntl wbc [...] hematuria). per Dr. Wayne Rivers 07/04/19 @ [facility] Start: 06-23-2019 History of coronary artery bypass grafting History of coronary artery bypass surgery La MCCRAY Comment on above: CABG X2 with HARRINGTON to LAD, reverse SVG to ramus intermedius, and exclusion of left atrial appendage with 35 mm Atricure clip (pt poor anticoag candidate d/t hematuria). per Dr. Wayne Rivers 07/04/19 @ [facility] Start: 12-09-2018 Microscopic examinat ion of blood, culture VALDEZ LANDIS Comment on above: Order Comment: Speci men Source Comment:Blood Performed By: #### H EMDF, NH33, PT, CMP3, LIPA4, CK3, TROPN, LACT3, MDIFF, PCAL #### [address] [address] Influenza Types A,B Direct FA (RYLAN) MD Husam Khan Influenza Types A,B Direct FA (RYLAN) Respiratory syncytia l virus antigen assay MD Husam Khan Respiratory syncytia l virus antigen assay Urine culture Plan of Treatment Date Care Activity Detail Author Start: 08-24-2025 Ankle brachial pressure index [facility] Start: 08-24-2025 Administration of bl ood product [facility] Start: 08-24-2025 [facility] Start: 08-08-2025 Patient discharge [facility] Start: 08-08-2025 Inhalation therapy procedure [facility] Start: 08-06-2025 Bacteria identified in Blood by Culture Blood Culture [facility] Start: 08-06-2025 Blood culture Blood Culture [facility] Start: 08-06-2025 [facility] Start: 08-06-2025 Application of ice c ollar, cap or bag [facility] Start: 08-05-2025 Following clinical p athway protocol [facility] Start: 08-05-2025 Admission procedure [facility] Start: 08-04-2025 Ambulation without limitation [facility] Start: 08-04-2025 Assessment of risk o f venous thromboembolism [facility] Start: 08-04-2025 Insertion of cathete r into peripheral vein [facility] Start: 08-04-2025 Measuring intake and output [facility] Start: 08-04-2025 Providing care accor ding to standard [facility] Start: 08-04-2025 Referral for physical therapy [facility] Start: 08-04-2025 Referral to occupati onal therapist [facility] Start: 08-04-2025 Referral to service [facility] Start: 08-04-2025 [facility] Start: 08-04-2025 Following clinical p athway protocol [facility] Start: 08-04-2025 Verification routine [facility] Start: 08-04-2025 Admission procedure [facility] Start: 08-04-2025 Hospital admission, emergency, from emergency room, medical nature [facility] Start: 08-04-2025 [facility] Start: 08-02-2025 Introduction catheter aorta [facility] Start: 08-02-2025 Patient discharge [facility] Start: 07-27-2025 [facility] Start: 02-10-2023 Procedure [facility] Bilirubin measurement, urine [facility] Hemoglobin [Presence] in Urine [facility] Measurement of keton es in urine using dipstick [facility] Microscopic urinalysis [facility] Microscopic urinalysis [facility] Organism count, micr oscopic method [facility] Patient Education [facility] Work Phone: pH of Urine [facility] Procedure [facility] Specific gravity of Urine [facility] Urine blood test [facility] Urine dipstick for glucose [facility] Urine dipstick for l eukocyte esterase [facility] Urine dipstick for nitrite [facility] Urine dipstick for protein [facility] Urine examination [facility] Urine microscopy: ep ithelial cells [facility] Urine microscopy: ep ithelial cells [facility] Urine microscopy: red cells [facility] Urine Microscopy: white cells [facility] Urobilinogen [Presen ce] in Urine [facility] US Heart [facility] US Lower extremity artery [facility] White blood cell count [facility] Immunizations Immunization Date Immunization Notes Care Provider Stephon laird 01-16-2021 Covcassy (Pfizer) MD Weiner Bill [facility] 12-27-2020 Jannet (Pfizer) MD Weiner [facility] Payers Date Payer Category Payer Medicare [id number] 2021 Private Health Insurance [id number] 2021 Self-pay [id number] 1940 Unknown [id number] 2.16.8 40.1.811306.3.579.2.668 Medicare Private Health Insurance Unknown [id number] 2.16.8 40.1.265627.3.579.2.462 Unknown [id number] 2.16.8 40.1.179354.3.579.2.462 Unknown [id number] 2.16.8 40.1.692495.3.579.2.462 Unknown [id number] 2.16.8 40.1.051383.3.579.2.462 Unknown [id number] 2.16.8 40.1.019849.3.579.2.462 Unknown [id number] 2.16.8 40.1.820469.3.579.2.462 Unknown [id number] 2.16.8 40.1.186311.3.579.2.462 Unknown [id number] 2.16.8 40.1.955559.3.579.2.462 Unknown [id number] 2.16.8 40.1.312019.3.579.2.462 Unknown [id number] 2.16.8 40.1.183080.3.579.2.462 Unknown [id number] 2.16.8 40.1.762129.3.579.2.462 Unknown [id number] 2.16.8 40.1.906678.3.579.2.462 Unknown [id number] 2.16.8 40.1.774627.3.579.2.462 Unknown [id number] 2.16.8 40.1.472472.3.579.2.462 Unknown [id number] 2.16.8 40.1.176622.3.579.2.462 Unknown [id number] 2.16.8 40.1.969354.3.579.2.462 Unknown [id number] 2.16.8 40.1.927833.3.579.2.462 Unknown [id number] 2.16.8 40.1.953443.3.579.2.462 Unknown [id number] 2.16.8 40.1.460879.3.579.2.462 Unknown [id number] 2.16.8 40.1.393315.3.579.2.462 Unknown [id number] 2.16.8 40.1.351276.3.579.2.462 Unknown [id number] 2.16.8 40.1.075540.3.579.2.462 Unknown [id number] 2.16.8 40.1.755886.3.579.2.462 Unknown [id number] 2.16.8 40.1.954575.3.579.2.462 Unknown [id number] 2.16.8 40.1.207365.3.579.2.462 Unknown [id number] 2.16.8 40.1.009382.3.579.2.462 Unknown [id number] 2.16.8 40.1.510482.3.579.2.462 Unknown [id number] 2.16.8 40.1.034893.3.579.2.462 Unknown [id number] 2.16.8 40.1.061922.3.579.2.462 Unknown [id number] 2.16.8 40.1.766724.3.579.2.462 Unknown [id number] 2.16.8 40.1.209725.3.579.2.462 Unknown [id number] 2.16.8 40.1.291256.3.579.2.462 Unknown [id number] 2.16.8 40.1.590520.3.579.2.462 Unknown [id number] 2.16.8 40.1.931129.3.579.2.462 Unknown [id number] 2.16.8 40.1.256297.3.579.2.462 Unknown [id number] 2.16.8 40.1.309211.3.579.2.462 Unknown [id number] 2.16.8 40.1.453724.3.579.2.462 Unknown [id number] 2.16.8 40.1.991462.3.579.2.462 Unknown [id number] 2.16.8 40.1.384667.3.579.2.462 Unknown [id number] 2.16.8 40.1.327899.3.579.2.462 Unknown [id number] 2.16.8 40.1.694409.3.579.2.462 Unknown [id number] 2.16.8 40.1.220683.3.579.2.462 Unknown [id number] 2.16.8 40.1.123995.3.579.2.462 Unknown [id number] 2.16.8 40.1.173512.3.579.2.462 Unknown [id number] 2.16.8 40.1.718119.3.579.2.462 Unknown [id number] 2.16.8 40.1.818308.3.579.2.462 Social History Date Type Detail Facility Start: 01-14-2022 End: 03-18-2023 Tobacco smoking status MIIS Unknown if ever smoked [facility] Start: 07-13-2019 Occasional [facility] Start: 07-13-2019 None [facility] Start: 07-14-2019 With Family [facility] Start: 07-13-2019 Non-smoker [facility] Start: 1940 Sex Assigned At Male W [facility] Start: 03-18-2023 End: 08-04-2025 Tobacco smoking status NHIS Ex-smoker (finding) [facility] Sex [facility] Medical Equipment Procedure Code Equipment Code Equipment Origin al Text Equipment Identifier Dates ()[id number] FDA Start: 08-02-2025 ()[id number] FDA Start: 08-02-2025 Goals Date Patient Goal Desired Activity /State Functional Status Date Assessment Result Facility 08-08-2025 Functional status Chair;Bedpan [facility] Work Phone: 08-07-2025 Functional status Ambulates [facility] Work Phone: Mental Status Date Assessment Result Facility 08-24-2025 Cognitive function Voice/Name [facility] Work Phone: 08-08-2025 Cognitive function Voice/Name [facility] Work Phone: 08-07-2025 Cognitive function Voice/Name [facility] Work Phone: 08-04-2025 Cognitive function Level Of Cons ciousness Awake;Alert [facility] Work Phone: Clinical Notes 06-23-2019 to 09-23-2025 Note Date & Type Note Facility 09-23-2025 Note [facility] 08-08-2025 Discharge summary Note Date/Time August 08, 2025 12:44pm [facility] Medical Records Department [address] [place] [id number] Discharge Summary 08/08/25 1239 MR#: [id number] Acct: [id number] Name: ELIAS SHAH Rep #:[id number] : 1940 85 From: Pedro Soliman PCP: Dr. Husam Khan MD Status:ADM I N Location: [place] [address] Providers Date of Admission: 08/05/25 Date of [...] 78.4 H, Lymph % (Auto) 8.0 L, [place] % (Auto) 10.9 H, Eos % (Auto) [...] mg-vit E 90 mg-zinc 40 mg-copper 1 hf-lvwvtl-ztpqoc capsule (PreserVision AREDS-2) 1 tab PO BID [...] % (Auto) 63.2, Lymph % (Auto)17.1 L, [place] % (Auto) 15.9 H, Eos % (Auto) [...] in before D/C Order can be placed): Nursing Home Facility Charges/Coding Visit Charges Inpatient E&M: 85884 Disch Hosp >30min 08/08/25 1244 <Electronically signed by Pedro Banegas MD> Cosigner Signature (if applicable): CC: Dr. Channing Mckeon MD; Dr. Pedro Banegas MD; Dr. Husam Khan MD~ Signed [facility] Work Phone: 1(492) 786-704409-16-2025 Discharge summary Author Pedro Banegas [facility] Note Date/Time August 08, 2025 12:39pm [facility] Medical Records Department [address] [place] [address] [facility] MR#: [id number] Acct: [id number] Name: ELIAS SHAH Rep #:[id number] : 1940 85 From: Pedro Soliman PCP: Dr. Husam Khan MD Status:ADM I N Certification of patient admission REQUIRED AT TIME OF ADMISSION. I CERTIFY THAT POST-HOSPITAL ECF SERVICES ARE REQUIRED TO BE GIVEN ON AN IN-PATIENT BASIS BECAUSE OF THE ABOVE NAMED PATIENT'S NEED FOR USP CARE ON A CONTINUING BASIS FOR THE CONDITION(S) FOR WHICH HE/SHE WAS RECEIVING IN-PATIENT HOSPITAL SERVICES PRIOR TO HIS/HER TRANSFER TO THE F. 08/08/25 1239<Electronically signed by Pedro Banegas MD> [...] 78.4 H, Lymph % (Auto) 8.0 L, Po[place] % (Auto) 10.9 H, Eos % (Auto) [...] in before D/C Order can be placed): Nursing Home Facility 08/08/25 1239 <Electronically signed by Pedro Banegas MD> Cosigner Signature (if applicable): CC: Dr. Morgan Dubon DO; Dr. Jim Adams MD; Dr. Husam Khan MD ~ [facility] Work Phone: 1(455) 659-113309-16-2025 Hospital Discharge instructionsAdditional Instructions Date of Discharge: 08/08/25[facility] Work Phone: 1(847) 453-737509-16-2025 Discharge summary [facility] Medical Records Department [address] [place] [address] Discharge Summary 08/08/25 1239 MR#: [id number] Acct: [id number] Name: ELIAS SHAH Rep #:[id number] 3 : 1940 85 From: Pedro Soliman PCP: Dr. Husam Khan MD Status:ADM I N Location: [place] [address] Providers Date of Admission: 08/05/25 Date of [...] 78.4 H, Lymph % (Auto) 8.0 L, Po[place] % (Auto) 10.9 H, Eos % (Auto) [...] mg-vit E 90 mg-zinc 40 mg-copper 1 gn-fylaje-fyrmsq capsule (PreserVision AREDS-2) 1 tab PO BID [...] % (Auto) 63.2, Lymph % (Auto)17.1 L, Po[place] % (Auto) 15.9 H, Eos % (Auto) [...] in before D/C Order can be placed): Nursing Home Facility Charges/Coding Visit Charges Inpatient E&M: 09494 Disch Hosp >30min 08/08/25 1244 Cosigner Signature (if applicable): CC: Dr. Channing Mckeon MD; Dr. Pedro Banegas MD; Dr. Husam Khan MD~ Signed [facility]09-16-2025 Discharge summary [facility] Medical Records Department [address] [place] [address] Transfer to [facility] Care MR#: [id number] Acct: [id number] Name: ELIAS SHAH Rep #:[id number] : 1940 85 From: Pedro Soliman PCP: Dr. Husam Khan MD Status:ADM I N Certification of patient admission REQUIRED AT TIME OF ADMISSION. I CERTIFY THAT POST-HOSPITAL F SERVICES ARE REQUIRED TO BE GIVEN ON AN IN-PATIENT BASIS BECAUSE OF THE ABOVE NAMED PATIENT'S NEED FOR USP CARE ON A CONTINUING BASIS FOR THE CONDITION(S) FOR WHICH HE/SHE WAS RECEIVING IN-PATIENT HOSPITAL SERVICES PRIOR TO HIS/HER TRANSFER TO THE [facility]. 08/08/25 1239 Diet Diet Order/Speech Therapy: INPATIENT [...] 78.4 H, Lymph % (Auto) 8.0 L, Po[place] % (Auto) 10.9 H, Eos % (Auto) [...] in before D/C Order can be placed): Nursing Home Facility 08/08/25 8529 Cosigner Signature (if applicable): CC: Dr. Morgan Dubon DO; Dr. Jim Adams MD; Dr. Husam Khan MD ~ [facility]09-16-2025 [facility]09-15-2025 Progress note Author Pedro Banegas [facility] Note Date/Time August 07, 2025 2:01pm [facility] Medical Records Department [address] [place] [address] Progress Note - Hospitalist 08/07/25 1358 MR#: [id number] Acct: [id number] Name: ELIAS SHAH Rep #:[id number] 6 : 1940 85 From: Pedro Soliman PCP: Dr. Husam Khan MD Status:ADM I N Location: [place] [address] Reason for Visit Chief Complaint: Weakness and [...] 78.4 H, Lymph % (Auto) 8.0 L, [place] % (Auto) 10.9 H, Eos % (Auto) [...] Calcium 8.0 Charges/Coding Visit Charges Inpatient E&M: 94625 Subs Hosp L2 08/07/25 1401 <Electronically signed by Pedro Banegas MD> Cosigner Signature (if applicable): CC: ~ Signed [facility] Work Phone: 1(830) 680-688609-15-2025 Progress note [facility] Medical Records Department [address] [place] [address] Progress Note - Hospitalist 08/07/25 3269 MR#: [id number] Acct: [id number] Name: ELIAS SHAH #:[id number] 6 : 1940 85 From: Pedro Soliman PCP: Dr. Husam Khan MD Status:ADM I N Location: [place] [address] Reason for Visit Chief Complaint: Weakness and [...] 78.4 H, Lymph % (Auto) 8.0 L, [place] % (Auto) 10.9 H, Eos % (Auto) [...] Calcium 8.0 Charges/Coding Visit Charges Inpatient E&M: 84318 Subs Hosp L2 08/07/25 1401 Cosigner Signature (if applicable): CC: ~ Signed [facility]09-14-2025 Progress note Author Pedro Banegas [facility] Note Date/Time August 06, 2025 11:39am [facility] Medical Records Department [address] [place] [address] Progress Note - Hospitalist 08/06/25 0739 MR#: [id number] Acct: [id number] Name: ELIAS SHAH Rep #:[id number] : 1940 85 From: Pedro Soliman PCP: Dr. Husam Khan MD Status:ADM I N Location: [place] [address] Reason for Visit Chief Complaint: Weakness and [...] 78.4 H, Lymph % (Auto) 8.0 L, [place] % (Auto) 10.9 H, Eos % (Auto) [...] 78.4 H, Lymph % (Auto) 8.0 L, [place] % (Auto) 10.9 H, Eos % (Auto) [...] Calcium 8.0 Charges/Coding Visit Charges Inpatient E&M: 26267 Subs Hosp L2 08/06/25 1139 <Electronically signed by Pedro Banegas MD> Cosigner Signature (if applicable): CC: ~ Signed [facility] Work Phone: 1(577) 416-444909-14-2025 Progress note [facility] Medical Records Department [address] [place] [address] Progress Note - Hospitalist 08/06/25 0739 MR#: [id number] Acct: [id number] Name: ELIAS SHAH Rep #:[id number] 3 : 1940 85 From: Pedro Soliman PCP: Dr. Husam Khan MD Status:ADM I N Location: [place] [address] Reason for Visit Chief Complaint: Weakness and [...] 78.4 H, Lymph % (Auto) 8.0 L, [place] % (Auto) 10.9 H, Eos % (Auto) [...] Assessment & Plan Assessment/Plan (1) Debility: (2) MARUO (acute kidney injury): (3) Leg pain, right: [...] 78.4 H, Lymph % (Auto) 8.0 L, Po[place] % (Auto) 10.9 H, Eos % (Auto) [...] Calcium 8.0 Charges/Coding Visit Charges Inpatient E&M: 80131 Subs Hosp L2 08/06/25 1139 Cosigner Signature (if applicable): CC: ~ Signed [facility]09-13-2025 Progress note Author Jim Adams [facility] Note Date/Time August 05, 2025 3:37pm [facility] Medical Records Department [address] [place] [address] Progress Note - Hospitalist 08/05/25 1505 MR#: [id number] Acct: [id number] Name: ELIAS SHAH Rep #:[id number] : 1940 85 From: Jim arzate MD PCP: Dr. Husam Khan MD Status:ADM I N Location: [place] [address] Subjective Subjective Still significant pain behind his right knee with limited mobility Objective Data Objective Data Vital Signs: Vital Signs Temp Pulse Resp BP Pulse Ox O2 Del Method 98.6 F 110 H 18 118/71 96 Room Air 08/05/25 10:08/05/25 10:08/05/25 10:08/05/25 10:08/05/25 10:08/05/25 11:45 Oxygen Delivery Method Room Air Weight: [...] Sl. Cloudy, Urine pH 5.0, Ur Specific [place] 1.020, Urine Protein 30 H, Urine Glucose [...] DVT: Lovenox Charges/Coding Visit Charges Inpatient E&M: 30875 Subs Hosp L2 08/05/25 1537 <Electronically signed by Jim Adams MD> Cosigner Signature (if applicable): CC: ~ Signed [facility] Work Phone: 1(503) 456-719409-13-2025 Progress note [facility] Medical Records Department [address] [place] [address] Progress Note - Hospitalist 08/05/25 150 MR#: [id number] Acct: [id number] Name: ELIAS SHAH Rep #:[id number] : 1940 85 From: Jim arzate MD PCP: Dr. Husam Khan MD Status:ADM I N Location: [place]3 [id number] Subjective Subjective Still significant pain behind his right knee with limited mobility Objective Data Objective Data Vital Signs: Vital Signs Temp Pulse Resp BP Pulse Ox O2 Del Method 98.6 F 110 H 18 118/71 96 Room Air 08/05/25 10:08/05/25 10:01 08/05/25 10:01 08/05/25 10:08/05/25 10:01 08/05/25 11:45 Oxygen Delivery Method Room [...] Sl. Cloudy, Urine pH 5.0, Ur Specific [place] 1.020, Urine Protein 30 H, Urine Glucose [...] DVT: Lovenox Charges/Coding Visit Charges Inpatient E&M: 59954 Subs Hosp L2 08/05/25 1534 Cosigner Signature (if applicable): CC: ~ Signed [facility]09-12-2025 History and physical note Author Morgan Dubon [facility] Note Date/Time August 04, 2025 5:22pm [facility] Medical Records Department [address] [place] [address] H&P Exam - Hospitalist 08/04/25 1608 MR#: [id number] Acct: [id number] Name: ELIAS SHAH Rep #:[id number] 6 : 1940 85 From: Morgan aguilar DO PCP: Dr. Husam Khan MD Status:ADM I NO Location: [facility] [id number] HPI - General General Date of Admission: 08/04/25 Date of Service: 08/04/25 Chief Complaint: Weakness and difficulty with ambulation HPI Narrative ELIAS SHAH, is a 85 M who presented to [facility] ED on 08/04/2025 with weakness and [...] currently. Will be admitted for further management. [facility] Medical History Macular degeneration Iron deficiency anemia [...] PO BID 06/22/25 Unknown History mg-copper 1 hc-cvshnn-hgrtcv capsule (PreserVision AREDS-2) rosuvastatin 20 mg tablet [...] beverages and coffee eating out: 1-3 times/week adán/religious: Episcopalian seatbelt use: always do you feel safe [...] 78.2 H, Lymph % (Auto) 6.6 L, [place] % (Auto) 12.6 H, Eos % (Auto) [...] No Acute Findings. Stable examination. Reading Location: [id number] Assessment & Plan Assessment/Plan (1) Debility: (2) MAURO (acute kidney injury): (3) Leg pain, right: PLAN: Plan Patient is an 85-year-old male who presented [facility] ED on 08/04/2025 for weakness and difficulty with ambulation. 1. Acute on chronic debility and difficulty with ambulation ? Admit under observation status to [facility]. PT/OT/case management consulted. Lives at home with but has required SNF placement in the past. Worsening weakness and difficulty with ambulation now is likely due to his recent procedure as below and dehydration from poor p.o. intake postoperatively. is requesting SNF placement on discharge and patient is agreeable with this. Has been [facility] in the past and had a good [...] AVR, paroxysmal A-fib, hypertension, hyperlipidemia: Follows with [place] [facility]. In rate controlled A-fib in the [...] 79 minutes. Charges/Coding Visit Charges Inpatient E&M: 32379 Init Hosp L3 08/04/25 1722 <Electronically signed by Morgan Dubon DO> Cosigner Signature (if applicable): CC: Dr. Morgan Dubon DO; Dr. Husam Khan MD~ Signed [facility] Work Phone: 1(858) 560-464109-12-2025 Discharge summary Author Ted Mtz [facility] Note Date/Time August 04, 2025 4:13pm [facility] Medical Records Department [address] [place] [address] Emergency Department Summary 08/04/25 MR#: [id number] Acct: [id number] Name: ELIAS SHAH Rep #:[id number] : 1940 85 From: Ted Mtz [...] been looking to getting him into a fpc facility recently, but his acute worsening since his surgery have limited their ability to do that quickly as an outpatient. He has had several near falls and has been very weak. [facility] Medical History Macular degeneration Iron deficiency [...] PO BID 06/22/25 Unknown History mg-copper 1 ky-njprvb-vqdkys capsule (PreserVision AREDS-2) rosuvastatin 20 mg tablet (Crestor) 10 mg (2 x 20 mg ) PO DAILY #30 [...] beverages and coffee eating out: 1-3 times/week adán/religious: Episcopalian seatbelt use: always do you feel safe [...] 78.2 H Lymph % (Auto) 6.6 L Po[place]ett % (Auto) 12.6 H Eos % (Auto) [...] No Acute Findings. Stable examination. Reading Location: [facility] Rhythm Strip Rhythm Strip: A-fib Rate: 95 Ectopy: None EKG Initial EKG: Attestation: I personally reviewed and interpreted this EKG as follows: Interpretation: No Acute Injury Pattern, Atrial Fibrillation and LBBB Prior EKG tracings: available for review Prior: Unchanged Management Discussion w/another healthcare provider: Hospitalist and Easement Man (Vascular) Discharge Plan Dx/Rx/DC Orders Clinical Impression: MAURO (acute kidney injury), Paroxysmal atrial fibrillation, Debility, Leg pain, right Disposition Disposition: Acute Care Hospital [facility] What to do if you have Problems For any increased pain, shortness of breath, bleeding, nausea or vomiting, chestpain, or any unexpected problems, contact your Primary Care Provider. Call [facility] ([phone]) or report to the closest Emergency Room. Call 911 if necessary. 08/04/25 1613 <Electronically signed by Ted Mtz MD> Cosigner Signature (if applicable): CC: Dr. Husam Khan MD ~ Signed [facility] Work Phone: 1(577) 394-312609-12-2025 History and physical note [facility] Medical Records Department [address] [place] [address] H&P Exam - Hospitalist 08/04/25 1608 MR#: [id number] Acct: [id number] Name: LEONIDELIAS Yen Rep #:[id number] 6 : 1940 85 From: Morgan aguilar DO PCP: Dr. Husam Khan MD Status:ADM I NO Location: [place] EN700-3 HPI - General General Date of Admission: 08/04/25 Date of Service: 08/04/25 Chief Complaint: Weakness and difficulty with ambulation HPI Narrative ELIAS SHAH, is a 85 M who presented to [facility] ED on 08/04/2025 with weakness and [...] he was mildly hypotensive to the 100s [id number] and borderline tachycardic to the 90s but [...] currently. Will be admitted for further management. [facility] Medical History Macular degeneration Iron deficiency anemia [...] PO BID 06/22/25 Unknown History mg-copper 1 wc-edbetk-tpdqdl capsule (PreserVision AREDS-2) rosuvastatin 20 mg tablet [...] beverages and coffee eating out: 1-3 times/week adán/religious: Episcopalian seatbelt use: always do you feel safe [...] 78.2 H, Lymph % (Auto) 6.6 L, [place] % (Auto) 12.6 H, Eos % (Auto) [...] No Acute Findings. Stable examination. Reading Location: [facility] Assessment & Plan Assessment/Plan (1) Debility: (2) MAURO (acute kidney injury): (3) Leg pain, right: PLAN: Plan Patient is an 85-year-old male who presented [facility] ED on 08/04/2025 for weakness and difficulty with ambulation. 1. Acute on chronic debility and difficulty with ambulation ? Admit under observation status to [facility]. PT/OT/case management consulted. Lives at home with but has required SNF placement in the past. Worsening weakness and difficulty with ambulation nowis likely due to his recent procedure as below and dehydration from poor p.o. intake postoperatively. is requesting SNF placement on discharge and patient is agreeable with this. Has been [facility] in the past and had a good [...] AVR, paroxysmal A-fib, hypertension, hyperlipidemia: Follows with [place] [facility]. In rate controlled A-fib in the [...] 79 minutes. Charges/Coding Visit Charges Inpatient E&M: 91244 Init Hosp L3 08/04/25 1722 Cosigner Signature (if applicable): CC: Dr. Morgan Dubon DO; Dr. Husam Khan MD~ Signed [facility]09-12-2025 Discharge summary [facility] Medical Records Department [address] [place] [address] Emergency Department Summary 08/04/25 MR#: [id number] Acct: [id number] Name: ELIAS SHAH Rep #:[id number] : 1940 85 From: Ted Mtz [...] been looking to getting him into a fpc facility recently, but his acute worsening since his surgery have limited their ability to do that quickly as an outpatient. He has had several near falls and has been very weak. [facility] Medical History Macular degeneration Iron deficiency [...] PO BID 06/22/25 Unknown History mg-copper 1 td-cardov-sgplas capsule (PreserVision AREDS-2) rosuvastatin 20 mg tablet [...] beverages and coffee eating out: 1-3 times/week adán/religious: Episcopalian seatbelt use: always do you feel safe [...] Oxygen Delivery Method 08/04/25 14:30 08/04/25 14:45 09/12/25 15:00 Temperature Temperature Source Pulse Rate 94 [...] 78.2 H Lymph % (Auto) 6.6 L [place] % (Auto) 12.6 H Eos % (Auto) [...] No Acute Findings. Stable examination. Reading Location: [facility] Rhythm Strip Rhythm Strip: A-fib Rate: 95 Ectopy: None EKG Initial EKG: Attestation: I personally reviewed and interpreted this EKG as follows: Interpretation: No Acute Injury Pattern, Atrial Fibrillation and LBBB Prior EKG tracings: available for review Prior: Unchanged Management Discussion w/another healthcare provider: Hospitalist and Easement Man (Vascular) Discharge Plan Dx/Rx/DC Orders Clinical Impression: MAURO (acute kidney injury), Paroxysmal atrial fibrillation, Debility, Leg pain, right Disposition Disposition: Acute Care Hospital [facility] What to do if you have Problems For any increased pain, shortness of breath, bleeding, nausea or vomiting, chestpain, or any unexpected problems, contact your Primary Care Provider. Call [facility] ([phone]) or report tothe closest Emergency Room. Call 911 if necessary. 08/04/25 1613 Cosigner Signature (if applicable): CC: Dr. Husam Khan MD ~ Signed [facility]09-12-2025 Radiology Diagnostic study note [facility] Imaging Services [address] [place] [address] Chest 1 View (Portable) MR#: [id number] Acct: [id number] Name: ELIAS SHAH Rep #: [id number] : 1940 M 85 From: Elliott Vargas MD PCP: Dr. Husam Khan MD Status: REG E R Study:Chest 1 View (Portable) Date of Exam: 08/04/25 Exam# [id number] Ordering Dr: Bishop Mtz MD PROCEDURE: CHEST [...] No Acute Findings. Stable examination. Reading Location: [id number] CC: Dr. Ted Mtz MD; Dr. Husam Khan MD ~ Data Conversion Analyst: Signed [facility]09-04-2025 Radiology Diagnostic study note [facility] Imaging Services [address] [place], [place] [id number] CTA Abd w/Runoff W/WO Contrast MR#: [id number] Acct: [id number] Name: ELIAS SHAH Rep #: [id number] 2 : 1940 M 85 From: Kj Curtis MD PCP: Dr. Husam Khan MD Status: REG E R Study:CTA Abd w/Runoff W/WO Contrast Date of Exam: 07/27/25 Exam# [id number] Ordering Dr: Neymar Medrano DO PROCEDURE: CTA [...] mentioned in the clinical history. Reading Location: [id number] CC: Dr. Ilana Medrano, DO; Dr. Husam Khan MD ~ Data Conversion Analyst: Signed [facility]09-02-2025 Hospital Discharge instructionsAdditional Instructions Continue taking [...] not want to make this unstable or worsen.[facility] Work Phone: 1(813) 749-510706-30-2025 Evaluation note* Diagnosis Onset Date Resolution Status [...] surgery June, resolved June 22, 2025 9:53am [facility] Work Phone: 1([phone]) 898-404706-30-2025 Evaluation note* Diagnosis Onset Date Resolution Status [...] 9:53am Pseudoaneurysm acute August 01, 2025 2:41pm [facility] Work Phone: 1([phone]) 870-645006-30-2025 Evaluation note* Diagnosis Onset Date Resolution Status Admit Date Iron deficiency anemia due t o chronic blood loss chronic May 22 10:17am 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 May 222024 10:17am History of aortic valve replacement with bioprosthetic valve June, acute June 22 025 9:53am Coronary artery disease chronic 2024 9:53am Essential (primary) hypertension chronic June 22, 2025 9:53am Hyperlipidemia chronic June 22, 2025 9:53am History of coronary artery bypass surgery June, resolved June 22, 2025 9:53am Pseudoaneurysm inactive August 01, 2025 2:41pm [facility] Work Phone: 1(646) 423-603106-30-2025 Evaluation note* Diagnosis Onset Date Resolution Status Admit Date Iron deficiency anemia due t o chronic blood loss chronic May 22 10:17am 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 May 222024 10:17am History of aortic valve replacement with bioprosthetic valve June, acute June 22 2 025 9:53am Coronary artery disease chronic J 2024 9:53am Essential (primary) hypertension chronic June 22, 2025 9:53am Hyperlipidemia chronic June 22, 2025 9:53am History of coronary artery bypass surgery June, resolved June 22, 2025 9:53am Pseudoaneurysm inactive August 01, 2025 2:41pm MAURO (acute kidney injury) acute August 05, 2025 12:13pm Debility acute July 12:13pm Leg pain, right acute August 05, 2025 12:13pm [facility] Work Phone: 1([phone]) 964-711206-30-2025 Evaluation note* Diagnosis Onset Date Resolution Status [...] pain, right inactive August 05, 2025 12:13pm [facility] Work Phone: 1([phone]) 880-364606-30-2025 Evaluation note* Diagnosis Onset Date Resolution Status [...] following surgery of the circulatory system acute Oct2024 8:37am PAD (peripheral artery disease) acute August 24 8:37am Pseudoaneurysm inactive August 8:37am [facility] Work Phone: 1([phone]) 208-104908-01-2019 Evaluation note* Diagnosis Onset Date Resolution Status 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 June, acute Coronary artery disease 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 alana Essential (primary) hypertension chronic GERD with esophagitis chroni c Hyperlipidemia chronic History of coronary artery bypass surgery June, resolved Iron deficiency anemia due to chronic blood loss 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) [facility] Work Phone: Evaluation note* Diagnosis Onset Date Resolution Status Iron deficiency anemia due to chronic blood loss 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 Atherosclerosis of coronary artery without angina pectoris chronic Essential (primary) hypertension chronic Hyperlipidemia chronic Paroxysmal atrial fibrillation chronic S/P aortic valve replacement with bioprosthetic valve July 04, 2019 [facility] Work Phone: Evaluation noteNo assessment information available [facility] Work Phone: Evaluation note* Diagnosis Onset Date Resolution Status Iron deficiency anemia due to chronic blood loss 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) [facility] Work Phone: Evaluation note* Diagnosis Onset Date Resolution Status Admit Date Iron deficiency anemia due t o chronic blood loss chronic May 22 10:17am 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 May 22, 2025 10:17am [facility] Work Phone: Reason for referral (narrative)No reason for referral information availableWSumma [facility] Work Phone: Summary Purpose Family History No [...] Yes August 20, 2019 7:58am Power of Advocacy Director Yes July 7:58am Advance Directive Response Recorded Date/ Time Advance Directives No March 02 8:11am Living Will Yes August 20, 2019 6:58am Power of Advocacy Director Yes July 6:58am Advance Directive Response Recorded Date/ Time Advance Directives No March 02 9:11am Advance Directive Response Recorded Date/ Time Living Will Yes August 20, 2019 7:58am Do you have a Healthcare Power of Advocacy Director? Yes August 20, 2019 7:58am Advance Directives No March 02 9:11am Advance Directive Response Recorded Date/ Time Living Will Yes August 20, 2019 7:58am Do you have a Healthcare Power of Advocacy Director? Yes August 20, 2019 7:58am Do you have a Healthcare Power of Advocacy Director? Yes July 27, 2025 3:40pm Advance Directives No March 02 9:11am Advance Directive Response Recorded Date/ Time Living Will Yes August 20, 2019 7:58am Do you have a Healthcare Power of Advocacy Director? Yes August 20, 2019 7:58am Do you have a Healthcare Power of Advocacy Director? Yes July 27, 2025 3:40pm Advance Directives Yes July 8:30am Advance Directive Response Recorded Date/ Time Living Will Yes August 20, 2019 7:58am Do you have a Healthcare Power of Advocacy Director? Yes August 20, 2019 7:58am Do you have a Healthcare Power of Advocacy Director? Yes July 27, 2025 3:40pm Advance Directives on File No [email or web address] 7:05am Living Will Yes August 02, 2025 7:05am Do you have a Healthcare Power of Advocacy Director? Yes August 02, 2025 7:05am Name of Medical Power of Advocacy Director amalia [email or web address] August 02, 2025 7:05am Advance Directives Yes July 7:05am Advance Directive Response Recorded Date/ Time Living Will Yes August 20, 2019 7:58am Do you have a Healthcare Power of Advocacy Director? Yes August 20, 2019 7:58am Do you have a Healthcare Power of Advocacy Director? No August 04, 2025 11:48am Do you have a Healthcare Power of Advocacy Director? Yes July 27, 2025 3:40pm Advance Directives on File No Jean [email or web address] 7:05am Living Will Yes August 02, 2025 7:05am Do you have a Healthcare Power of Advocacy Director? Yes August 02, 2025 7:05am Name of Medical Power of Advocacy Director amalia zamora August 02, 2025 7:05am Advance Directives Yes July 7:05am Advance Directive Response Recorded Date/ Time Living Will Yes August 20, 2019 7:58am Do you have a Healthcare Power of Advocacy Director? Yes August 20, 2019 7:58am Do you have a Healthcare Power of Advocacy Director? No August 04, 2025 5:54pm Do you have a Healthcare Power of Advocacy Director? Yes July 27, 2025 3:40pm Advance Directives on File No Jean [email or web address] 7:05am Living Will Yes August 02, 2025 7:05am Do you have a Healthcare Power of Advocacy Director? Yes August 02, 2025 7:05am Name of Medical Power of Advocacy Director amalia zamora August 02, 2025 7:05am [...] a 78 y.o. male who presented to [facility] on 12/04/2018 with an incarcerated, strangulated hernia. He went to the OR urgently for diagnostic lap, which converted to open exploratory laparotomy when the bowel was noted to be nonviable. The diseased segment was resected and the bowel reanastomosed. Post-operatively he was transferred t (more content not included)... Note HNO ID: [id number] Author: Jerel Millan (Pa) Service: Cardiovascular Surgery Author Type: Physician Truck Manager Type: Discharge Summary Filed: 07/13/2019 4:08 PM [...] (more content not included)... Note HNO ID: [id number] Author: Leah lizzie Jh Service: Hospital Medicine Author Type: Physician Type: [...] Team: Attending Provider: Ben Peñaloza Primary Service: [facility]: Roseanna Conner MY CONDITION AT DI (more content not included)... Note HNO ID: [id number] Author: Jerel Millan (Pa) Service: Cardiovascular Surgery Author Type: Physician Truck Manager Type: Procedures Filed: 07/11/2019 3:42 PM Note [...] PAGER/CONTACT #: Procedure Findings Note HNO ID: [id number] Author: Jerel Millan (Pa) Service: Cardiovascular Surgery Author Type: Physician Truck Manager Type: Procedures Filed: 07/11/2019 3:42 PM Note [...] 11, 2025 1:14pm Post Aortogram 2-4 WK August 24 8:37am Chief Complaint Admit Date [...] section and content) DATE CREATED AUTHOR 01/11/2019 [facility] DATE CREATED AUTHOR AUTHOR'S ORGANIZ ATION 09/19/2019 [facility] DATE CREATED AUTHOR AUTHOR'S ORGANIZ ATION 10/02/2025 [facility] Goals (unrecognized section and content) Goals [...] Start: August 08, 2025 Dr. Morgan Dubon , Other Provider Active Start: August 08, 2025 [...] Active Start: August 05, 2025 Dr. Ted Mzt MD Emergency Depart ment Physician Active Start: [...] 11, 2025 End: August 11, 2025 La MCCRAY, PA Attending physician Active Start: August 11, 2025 End: August 11, 2025 La Hernández PA, PA Referring Provider Active Start: August 11, [...] August 24, 2025 End: August 24, 2025 JEFF Orlando NP Attending physician Active Start: August 24, 2025 [...] BE BASED ON THE PRIMARY CLINICAL RECORDS. [facility] [employer] provides no warranty or guarantee of the accuracy or completeness of information in this document.
[2025-10-02 07:43] LABS: Hematocrit 29.0 % (40-54); Hemoglobin 8.2 g/dL (13.0-16.5); Mean Corp Hgb Conc 28.3 g/dL (32-36); Mean Corpuscular Volume 89.0 fL (80-94); Mean Platelet Vol. 8.7 fl (6.2-12.0); POSITIVE MORPHOLOGY YES; Platelet Count 248 K/mm3 (150-450); RBC Distribution Width CV 20.1 % (11.6-14.6); RBC Distribution Width SD 59.7 fl (35.1-43.9); Red Blood Count 3.26 M/mm3 (4.6-6.2); White Blood Count 17.9 K/mm3 (4.4-11.0)
[2025-10-02 07:57] LABS: Anion Gap 9 (5-15); BUN 40 mg/dL (4-19); BUN/Creat Ratio 32.5 RATIO (10-20); Calcium,Total 7.7 mg/dL (7.6-11.0); Carbon Dioxide 18.9 mmol/L (21.0-32.0); Chloride 115 mmol/L (98-108); Glucose 130 mg/dL (70-99); Potassium 3.4 mmol/L (3.3-5.1)
[2025-10-02 08:29] LABS: Scan Indicated on CBC? Y/N YES- FLAGS NOTED
== END ==
LOC: OLS.WCC 05:00
PROVIDERS: PCP Family Medicine Geriatric Medicine; Visit Provider Family Medicine
DX: I48.91 Unspecified atrial fibrillation (principal); I10 Essential (primary) hypertension; D50.0 Iron deficiency anemia secondary to blood loss (chronic); E78.5 Hyperlipidemia, unspecified
CPT/HCPCS: 36415; 80048; 85027

== ENCOUNTER 2025-10-03 14:00 | Inpatient (IN) | payer MEDICARE, OTHER, SELFPAY ==
[2025-10-03] VITALS (11 sets, daily range): BP systolic 88–122; BP diastolic 54–71; PULSE 95–102; RESP 12–20; TEMP 35.8–36.4; O2SAT 91–100; BMI 28.8; BMI 27.7
--- NOTE | 2025-10-03 14:23 | EKG12_ITS ---
Test Reason : CONFUSION Blood Pressure : */* mmHG Vent. Rate : 91 BPM Atrial Rate : * BPM P-R Int : * ms QRS Dur : 176 ms QT Int : 430 ms P-R-T Axes : * -56 123 degrees QTcB Int : 528 ms Atrial fibrillation Left axis deviation Left bundle branch block Abnormal ECG Confirmed by Henrique Santana ([id number]), film editor DONNIE SALINAS ([id number]) on 10/04/2025 10:34:20 AM Referred By: Confirmed By: Henrique Santana
--- NOTE | 2025-10-03 14:23 | CT_ITS ---
PROCEDURE: ABDOMEN/PELVIS W IV CONT ONLY 10/03/2025 REASON FOR EXAM: RECENT C. DIFFICILE INFECTION TECHNIQUE: Procedure Code: [id number] Modality: CT Procedure: ABDOMEN/PELVIS W IV CONT ONLY Coronal and Sagittal reconstruction series were provided. CONTRAST: Isovue-300 VOLUME: 100 mL One or more dose reduction techniques were used (e.g., Automated exposure control, adjustment of the mA and/or kV according to patient size, use of iterative reconstruction technique. RADIATION DOSE SUMMARY: CTDlvol: 15.8 mGy DLP: 1405.38 mGycm COMPARISON: None FINDINGS: Lung bases: Bilateral pleural effusions left greater than right with bibasilar atelectasis. Elevation of the left hemidiaphragm. Coronary artery calcification. Liver: Small amount of perihepatic ascites. Minimal dilatation of the central intrahepatic biliary ducts. The common bile duct is not dilated. Gallbladder: Multiple gallstones. Small amount of pericholecystic fluid. Spleen: Normal size. Pancreas: Diffuse fatty atrophy. Adrenals: Unremarkable Kidneys: Normal renal sizes. No hydronephrosis. Bladder: A Farley catheter is seen within an empty urinary bladder. There is diffuse bladder wall thickening of the urinary bladder. Bowel: Corrales colitis. Lymph nodes: Unremarkable. Vasculature: The abdominal aorta and IVC are normal. Peritoneum / Retroperitoneum: Right inguinal hernia containing fat. Bones: Degenerative changes of the spine. CT/Abdomen/Pelvis W IV Cont ONLY IMPRESSION: Corrales colitis. Multiple gallstones. Findings suggestive of small amount of pericholecystic fl uid. Inflammatory changes seen in the right lower quadrant. Pancreatic atrophy. Bilateral pleural effusions right greater than left with bibasilar atelectasis. Reading Location: [id number]
[2025-10-03 14:46] LABS: Hematocrit 35.2 % (40-54); Hemoglobin 9.6 g/dL (13.0-16.5); Immature Granulocytes Count 0.910 X10^3/uL (0.0-0.0); Mean Corp Hgb Conc 27.3 g/dL (32-36); Mean Corpuscular Volume 87.8 fL (80-94); Mean Platelet Vol. 8.9 fl (6.2-12.0); NRBC Flagged by Analyzer 0.1 % (0-5); POSITIVE DIFFERENTIAL YES; Platelet Count 259 K/mm3 (150-450); RBC Distribution Width CV 19.8 % (11.6-14.6); RBC Distribution Width SD 61.3 fl (35.1-43.9); Red Blood Count 4.01 M/mm3 (4.6-6.2); White Blood Count 21.5 K/mm3 (4.4-11.0)
[2025-10-03 14:47] LABS: Differential Indicated SCAN CRITERIA MET
[2025-10-03 14:54] LABS: Prothrombin Time (Protime)PT. 17.0 SECONDS (11.7-14.9)
[2025-10-03 14:55] LABS: Partial Thromboplast Time 34.5 Seconds (24.1-36.2)
[2025-10-03] MEDS: 0.9% Normal Saline (1000mL) 1,000 ML 999 ML IV ×3 (15:02→22:35)
[2025-10-03 15:05] LABS: Mucous, Urine 0 SEEN /hpf (<or=2+); Red Blood Cells-Urine 0 SEEN /hpf (0-5); Squamous Epithelial Cells - UA 0 SEEN /hpf (0-5)
[2025-10-03 15:08] LABS: Color, Urine Yellow (Yellow); Glucose, Dipstick Normal (Normal); Ketone-Dipstick Negative (Negative); Leukocyte Esterase-Dipstick Negative /ul (Negative); Nitrite-Dipstick Negative (Negative); Occult Blood-Urine 10 /ul (Negative); Protein-Dipstick 100 mg/dl (Negative); Specific Gravity, Urine 1.020 (1.002-1.030); Urine Bilirubin Dipstick Negative (Negative)
[2025-10-03 15:16] LABS: Fine Granular Cast- Urine 10-25 SEEN /lpf (0-5)
[2025-10-03 15:23] LABS: AST(SGOT) 82 U/L (<=37); Alanine Aminotransfer ALT/SGPT 34 U/L (<=46); Albumin, Serum 2.0 g/dL (3.4-4.8); Alkaline Phosphatase 162 U/L (40-129); Anion Gap 11 (5-15); BUN 40 mg/dL (4-19); BUN/Creat Ratio 29.1 RATIO (10-20); Calcium,Total 8.2 mg/dL (7.6-11.0); Carbon Dioxide 17.6 mmol/L (21.0-32.0); Chloride 114 mmol/L (98-108); Estimated Creatinine Clearance 41.79 ml/min (50-250); Globulin 4.0 g/dL (2.2-4.2); Glucose 127 mg/dL (70-99); Potassium 3.7 mmol/L (3.3-5.1)
--- NOTE | 2025-10-03 15:30 | RAD_ITS ---
PROCEDURE: CHEST 1 VIEW (PORTABLE) 10/03/2025 REASON FOR EXAM: COUGH TECHNIQUE: Frontal view of the chest. COMPARISON: August 04, 2025. FINDINGS: Hardware: EKG electrodes are seen. Status post CABG. Heart: Cardiomegaly. Lungs: Stable elevation of the left hemidiaphragm with blunting of the left costophrenic angle and left basilar atelectasis and/or infiltrate. Bones: The bones are unremarkable. RAD/Chest 1 View (Portable) IMPRESSION: Elevation of the left hemidiaphragm with findings suggestive of a small left pl eural effusion with left basilar atelectasis and/or infiltrate. Reading Location: [id number]
--- NOTE | 2025-10-03 15:52 | EX.ED.DYSGE1 ---
HPI History of Present Illness Chief Complaint: Hypotension Narrative Narrative: Patient is 85-year-old male with past medical history of lung mass, iron deficiency anemia, monoclonal gammopathy of unknown significance, GERD, BPH, aortic stenosis, atrial fibrillation, left bundle branch block who presents to the emergency department from the nursing facility with a chief complaint of altered mental status, hypotension. History of present illness was unobtainable from the patient secondary to his altered mental status therefore acute care caveat applies [facility] Medical History C. 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 History of aortic stenosis Vitamin D deficiency Allergic rhinitis BPH (benign prostatic hyperplasia) Hematuria Debility Aortic stenosis Bowel obstruction Mitral valve annular calcification Atrial fibrillation with rapid ventricular response Declining functional status Cognitive deficits Vitamin D deficiency Acute metabolic encephalopathy Acute kidney injury Prolonged QT interval Left bundle branch block Anemia Hyperlipidemia Essential (primary) hypertension Home Medications ?Medication ?Instructions ?Recorded ?Last Taken ?Type tamsulosin 0.4 mg capsule 0.4 mg PO QHS urine flow 08/20/19 Unknown History famotidine 40 mg tablet (Pepcid) 40 mg PO DAILY 08/10/20 Unknown History citalopram 10 mg tablet 10 mg PO DAILY 02/18/21 Unknown History donepezil 10 mg tablet 10 mg PO DAILY 02/18/21 Unknown History quetiapine 25 mg tablet 25 mg PO BID 02/18/21 Unknown History ascorbate calcium (vitamin C) 500 500 mg PO DAILY 01/13/22 Unknown History mg tablet carvedilol 3.125 mg tablet 3.125 mg PO BID #180 tabs 03/28/24 Unknown Rx amlodipine 5 mg tablet 5 mg PO QHS #90 tabs 06/22/25 08/02/25 Rx vit C 250 mg-vit E 90 mg-zinc 40 1 tab PO BID 06/22/25 Unknown History mg-copper 1 [id number] capsule (PreserVision AREDS-2) albuterol sulfate 90 mcg/actuation 2 puff inhalation Q6H PRN 08/01/25 Unknown History aerosol inhaler shortness of breath or wheezing clopidogrel 75 mg tablet 75 mg PO DAILY #90 tabs 08/03/25 Unknown Rx acetaminophen 500 mg tablet 1,000 mg (2 x 500 mg) PO Q8 #0 tabs 08/08/25 Unknown Rx sennosides 8.6 mg-docusate sodium 2 tab PO BID #0 tabs 08/08/25 Unknown Rx 50 mg tablet (Stimulant Laxative Plus) aspirin 81 mg tablet,delayed 81 mg PO DAILY 09/19/25 Unknown History release (Adult Aspirin Regimen) atorvastatin 20 mg tablet (Lipitor) 20 mg PO QHS 09/19/25 Unknown History ferrous sulfate 325 mg (65 mg 325 mg PO DAILY 09/19/25 Unknown History iron) tablet (Feosol) fluticasone propionate 50 1 spray intranasal BID 09/19/25 Unknown History mcg/actuation nasal spray,suspension carboxymethylcellulose sodium 1 % 1 drp EACH EYE DAILY #0 ea 09/23/25 Unknown Rx eye gel in a dropperette (Refresh Celluvisc) cefdinir 300 mg capsule 300 mg PO BID 4 days #8 caps 09/23/25 Unknown Rx guaifenesin 1,200 mg tablet, 1,200 mg PO BID 7 days #0 tabs 09/23/25 Unknown Rx extended release 12 hr (Mucus Relief ER) ipratropium 0.5 mg-albuterol 3 mg 3 ml inhalation Q6H.RT PRN sob #0 09/23/25 Unknown Rx (2.5 mg base)/3 mL nebulization mL soln losartan 50 mg tablet 25 mg (1/2 x 50 mg) PO DAILY #90 09/23/25 Unknown Rx tabs Allergy/AdvReac Type Severity Reaction Status Date / Time No Known Allergies Allergy Verified 10/03/25 14:11 Family History Father Cancer Lung cancer Sister Cancer Breast cancer Pancreas cancer Surgical History History of coronary artery bypass surgery (~07/04/19) History of aortic valve replacement with bioprosthetic valve (~07/04/19) History of right and left heart catheterization (03/02/19) S/P partial colectomy Umbilical hernia, incarcerated (12/04/18) Social History household members: none housing: [facility] current occupational status: retired Smoking Status: Former smoker alcohol intake: never substance use type: does not use caffeine: Yes Type: carbonated beverages and coffee eating out: 1-3 times/week adán/nondenominational: Buddhism seatbelt use: always do you feel safe at home: Yes ROS ROS ED ROS Narrative Review of systems unobtainable from the patient secondary to the altered mental status therefore acute care caveat applies EXAM Physical Exam Narrative Exam Narrative: General: Patient is lying in bed rest comfortably did not appear to be in acute distress Head: Atraumatic, normocephalic Eyes: PERRL bilaterally, EOMI bilaterally, no conjunctival injection noted Neck: Soft, supple, trachea midline Cardiovascular: Patient tachycardic with a irregular irregular rhythm Respiratory: Clear to auscultation bilaterally Abdomen: Soft, nondistended, diffuse tenderness to palpation no rebound or guarding on exam Extremities: +3/5 strength noted in the bilateral upper and lower extremities Neurological: Patient was able to tell us his name he is moving all extremities on exam was confused as to where he was Skin: Warm, dry, intact no rashes or lesions noted Const Vital Signs: 10/03/25 14:02 10/03/25 14:09 10/03/25 14:14 Temperature 97.6 F L 97.6 F L Temperature Source Oral Oral Pulse Rate 100 100 Respiratory Rate 15 14 Respiratory Effort Normal Respiratory Pattern Normal Blood Pressure 88/54 L 88/54 L Blood Pressure Mean 65 65 Pulse Ox 91 91 Oxygen Delivery Method Nasal Cannula Nasal Cannula Oxygen Flow Rate (L/min) 2 2 10/03/25 14:23 10/03/25 16:01 10/03/25 16:25 Temperature Temperature Source Pulse Rate 101 H Respiratory Rate 15 Respiratory Effort Respiratory Pattern Blood Pressure 112/68 114/69 Blood Pressure Mean 82 84 Pulse Ox 100 Oxygen Delivery Method Nasal Cannula Nasal Cannula Oxygen Flow Rate (L/min) 3 2 Sepsis Attestation Possible Source of Sepsis: GI tract/intra-abdominal Sepsis Organ Dysfunction Criteria Present: SBP < 90 mmHg or MAP < 65 mmHg, Lactic Acid > 2 mmol/L, Serum CO2 < 20 mmol/L (on BMP) and New/Unexplained change in mental status MDM MDM MDM Narrative Medical decision making narrative: Patient is a 85-year-old male who presents to the emergency department the chief complaint of altered mental status, diarrhea not acting his normal self. Physician from nursing facility Dr. Han called in and discussed with me in regards to the patient he states that the patient about 2 weeks ago was hospitalized for pneumonia was discharged on cefdinir and then about a week ago he was diagnosed with C. difficile for which he was placed on oral vancomycin every 6 hours has been on this for 6 days now. He states that they were periodically checking blood work and had worsening leukocytosis as well as worsening creatinine where his baseline was noted to be 1.5. He states that he had an IV placed and the patient and started to hydrate the patient. He states that he thought the patient was starting to get better however today they noticed that he was hypotensive and having altered mental status therefore they sent him here to be further evaluated. On the differential diagnosis includes but not limited to intracranial hemorrhage, intra-abdominal abscess, electro abnormality, metabolic encephalopathy. Once workup is obtained reviewed he will be reevaluated. Patient's CBC reviewed and showed a leukocytosis of 21,000, hemoglobin is 9.6 which is stable, platelet count of 259. Patient INR normal 1.4, PT of 17. Patient sodium is 142, potassium 3.7, creatinine was noted to be 1.37. Patient lactic acid elevated to 3 AST and ALT were 82 and 34 respectively. Patient urinalysis reviewed and showed no evidence of infection. Patient's chest x-ray reviewed by myself by radiology showed elevation of left hemidiaphragm finding suggestive small left pleural effusion with left basilar atelectasis and/or infiltrate. Patient CT ab pelvis IV contrast reviewed showed pancolitis multiple gallstones finding suggestive of a small amount of pericholecystic fluid. Patient has no tenderness palpation the right upper quadrant on exam inflammatory changes seen in the right lower quadrant with pancreatic atrophy noted as well. Bilateral pleural effusions right greater than left with basilar atelectasis. Patient was ordered vancomycin and cefepime at 1552. At this point time will discuss case with hospitalist for admission 30 cc/kg bolus of fluids still infusing. Patient's blood pressure is normalized to 114/69 at 1625. Discussed case with hospitalist Dr. Lunsford who accept patient for admission is also requesting IV Flagyl which was ordered. Critical care time 49 minutes Lab Data Labs: Laboratory Results - last 24 hr 10/03/25 10/03/25 14:30 15:00 WBC 21.5 H RBC 4.01 L Hgb 9.6 L Hct 35.2 L MCV 87.8 MCH 23.9 L MCHC 27.3 L RDW Std Deviation 61.3 H RDW Coeff of Genesis 19.8 H Plt Count 259 MPV 8.9 Immature Gran % (Auto) 4.200 H Neut % (Auto) 68.6 Lymph % (Auto) 17.5 L [place] % (Auto) 9.2 Eos % (Auto) 0.2 Baso % (Auto) 0.3 Absolute Neuts (auto) 14.8 H Absolute Lymphs (auto) 3.78 Nucleated RBC % 0.1 PT 17.0 H INR 1.4 APTT 34.5 Sodium 142 Potassium 3.7 Chloride 114 H Carbon Dioxide 17.6 L Anion Gap 11 BUN 40 H Creatinine 1.37 H Estim Creat Clear Calc 41.79 L Est GFR (MDRD) Non-Af 50 L BUN/Creatinine Ratio 29.1 H Glucose 127 H Lactic Acid 3.0 H* Calcium 8.2 Total Bilirubin 0.39 AST 82 H ALT 34 Alkaline Phosphatase 162 H Total Protein 6.0 Albumin 2.0 L Globulin 4.0 Albumin/Globulin Ratio 0.5 L Urine Color Yellow Urine Clarity Clear Urine pH 6.0 Ur Specific [place] 1.020 Urine Protein 100 H Urine Glucose (UA) Normal Urine Ketones Negative Urine Occult Blood 10 H Urine Nitrite Negative Urine Bilirubin Negative Urine Urobilinogen Normal Ur Leukocyte Esterase Negative Urine RBC 0 SEEN Urine WBC 0 SEEN Ur Squamous Epith Cells 0 SEEN Urine Bacteria 0 SEEN Fine Granular Casts 10-25 SEEN Urine Mucus 0 SEEN Radiography Diagnostic Testing: Clinical Impression(s) from Imaging Studies Abdomen/Pelvis CT 10/03/25 14:23 IMPRESSION: Corrales colitis. Multiple gallstones. Findings suggestive of small amount of pericholecystic fluid. Inflammatory changes seen in the right lower quadrant. Pancreatic atrophy. Bilateral pleural effusions right greater than left with bibasilar atelectasis. Reading Location: [id number] Chest X-Ray 10/03/25 15:30 IMPRESSION: Elevation of the left hemidiaphragm with findings suggestive of a small left pleural effusion with left basilar atelectasis and/or infiltrate. Reading Location: [id number] Discharge Plan Dx/Rx/DC Orders Clinical Impression: C. difficile colitis, Bilateral pleural effusion, Acute metabolic encephalopathy, Chronic hypoxic respiratory failure, Cholelithiasis, Atrial fibrillation Disposition Disposition: [facility] D/C Safety Score for UGIB Assessment [place] Bleeding Score (GBS): Stratifies upper GI bleeding patients who are low-risk and candidates for outpatient management. Sex: Male Hemoglobin, BUN, Recent Vital Signs: Hgb 9.6 g/dL (13.0-16.5) L 10/03/25 14:30 BUN 40 mg/dL (4-19) H 10/03/25 14:30 Pulse Rate 101 Blood Pressure 114/69 Total Risk Score: 3 Score Interpretation: Score of 0: A GBS of 0 is a ?Low Risk? GI bleed, and is highly sensitive (99.6% in a 2007 retrospective study) for predicting which patients did not require any ?medical intervention?: blood transfusion, endoscopy, or surgery. This was confirmed in a 2009 Lanc study where patients with a score of 0 were actually discharged and had no GI bleeding mortality at 6 month followup Score above 0: A GBS greater than zero suggests a ?High Risk? GI bleed that is likely to require ?medical intervention?: transfusion, endoscopy, or surgery. A higher GBS also correlated with a higher likelihood of needing intervention Scores >/= 6 are associated with >50% risk of needing intervention D/C Safety Score for LGIB Assessment Assessment Tool: Readmission and adverse event risk in patients with acute lower GI bleeding. Age, in years: >/= 70 Sex: Male Hemoglobin and Recent Vital Signs: Hgb 9.6 g/dL (13.0-16.5) L 10/03/25 14:30 Pulse Rate 101 10/03/25 16:25 Blood Pressure 114/69 10/03/25 16:25 Probability of safe discharge: 98% Total Risk Score: 3 Score Interpretation: Probability Percentage of safe discharge (absence of rebleeding, blood transfusion, therapeutic intervention, 28 day readmission, or ) Score of 8 or below: Consider discharge, with appropriate precautions. Score of 9 or above: Discharge NOT recommended. Consider admission with further workup and resuscitation as necessary.
--- NOTE | 2025-10-03 16:07 | ED.RN ---
CC nurse given update on patient.
[2025-10-03] MEDS: Cefepime HCl 2 GM in 0.9% Normal Saline (100mL MB+) 100 ML IV (16:09)
[2025-10-03] MEDS: Vancomycin HCl 1,250 MG in 0.9% Normal Saline (250mL Bag) 250 ML 167 MG IV (16:55)
[2025-10-03] MEDS: 0.9% Normal Saline (1000mL) 1,000 ML 300 ML IV (18:05)
[2025-10-03] MEDS: 0.9% Normal Saline (1000mL) 1,000 ML 100 ML IV (18:37)
[2025-10-03] MEDS: Vancomycin 125 MG/5 ML Susp PO.SYRINGE PO ×2 (18:39→23:44)
[2025-10-03 18:40] LABS: Reflex Lactate? Y
[2025-10-03] MEDS: metroNIDAZOLE 750 MG in Viaflex Bag 1 BAG 150 MG IV (18:41)
--- NOTE | 2025-10-03 18:45 | HP.PCM.HOS_ITS ---
HPI - General General Date of Admission: 10/03/25 Date of Service: 10/03/25 Chief Complaint: Hypotension, mental status change HPI Narrative ELIAS JAQUEZ, is a 85 M who presents to the emergency room at [facility] after being transported from an extended care facility which he was receiving skilled services. He was transported due to low blood pressure and mental status change. Patient has a history of cognitive impairment and had been diagnosed recently with C. difficile colitis. Patient had recently been hospitalized here at [facility] for sepsis and was given a course of antibiotics during that hospitalization. Labs obtained in the emergency room revealed an elevated white blood cell count at 21.5, hemoglobin was 9.6, chemistry panel revealed an elevated chloride at 114, elevated BUN at 40, creatinine was elevated at 1.37, and lactic acid was 3. Urinalysis was unremarkable. CT of the abdomen pelvis revealed pancolitis, there were multiple gallstones noted, there were findings suggestive of a small amount of pericholecystic fluid, inflammatory changes were seen in the right lower quadrant. There were bilateral pleural effusions right greater than the left with bibasilar atelectasis. Chest x-ray showed elevation of the left hemidiaphragm with findings suggestive of a small left pleural effusion with left basilar atelectasis and or infiltrate. Patient was felt to have severe sepsis secondary to C. difficile colitis, patient will be admitted to PCU, he will be given IV fluids and oral vancomycin. Patient will be placed on IV Flagyl, labs will be monitored. Patient will be seen by PT and OT. [facility] Medical History C. 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 History of aortic stenosis Vitamin D deficiency Allergic rhinitis BPH (benign prostatic hyperplasia) Hematuria Debility Aortic stenosis Bowel obstruction Mitral valve annular calcification Atrial fibrillation with rapid ventricular response Declining functional status Cognitive deficits Vitamin D deficiency Acute metabolic encephalopathy Acute kidney injury Prolonged QT interval Left bundle branch block Anemia Hyperlipidemia Essential (primary) hypertension Home Medications ?Medication ?Instructions ?Recorded ?Last Taken ?Type tamsulosin 0.4 mg capsule 0.4 mg PO QHS urine flow Unknown History famotidine 40 mg tablet (Pepcid) 40 mg PO DAILY Unknown History citalopram 10 mg tablet 10 mg PO DAILY 02/18/21 Unkn own History donepezil 10 mg tablet 10 mg PO QHS 02/18/21 Unknow n History quetiapine 25 mg tablet 25 mg PO QHS 02/18/21 Unknow n History ascorbate calcium (vitamin C) 500 500 mg PO DAILY 12/25 12/14 Unknown History mg tablet carvedilol 3.125 mg tablet 3.125 mg PO BID #180 tabs 0 03/28/24 Unknown Rx vit C 250 mg-vit E 90 mg-zinc 40 1 tab PO BID 06/22/25 Unknown History mg-copper 1 [id number] capsule (PreserVision AREDS-2) albuterol sulfate 90 mcg/actuation 2 puff inhalation Q 6H PRN 08/01/25 Unknown History aerosol inhaler shortness of breath or wheez ing clopidogrel 75 mg tablet 75 mg PO DAILY #90 tabs 07/24 12/17 Unknown Rx aspirin 81 mg tablet,delayed 81 mg PO DAILY 09/19/25 U nknown History release (Adult Aspirin Regimen) atorvastatin 20 mg tablet (Lipitor) 20 mg PO QHS 09/19 Unknown History ferrous sulfate 325 mg (65 mg 325 mg PO DAILY 09/19/25 Unknown History iron) tablet (Feosol) fluticasone propionate 50 1 spray intranasal BID 09/19 Unknown History mcg/actuation nasal spray,suspension carboxymethylcellulose sodium 1 % 1 drp EACH EYE DAILY #0 ea 09/23/25 Unknown Rx eye gel in a dropperette (Refresh Celluvisc) ipratropium 0.5 mg-albuterol 3 mg 3 ml inhalation Q6H. RT PRN sob #0 09/23/25 Unknown Rx (2.5 mg base)/3 mL nebulization mL soln losartan 50 mg tablet 25 mg (1/2 x 50 mg) PO DAILY #90 09/23/25 Unknown Rx tabs Lactobacillus acidophilus 10 10,000 mmu cells PO BID 1 12/03/24 Unknown History billion cell capsule guaifenesin 1,200 mg tablet, 600 mg PO BID 10/03/25 Un known History extended release 12 hr (Mucus Relief ER) sennosides 8.6 mg-docusate sodium 2 tab PO BID PRN con stipation 10/03/25 Unknown History 50 mg tablet (Stimulant Laxative Plus) vancomycin 125 mg capsule 125 mg PO Q6H 10/03/25 Unkno wn History Allergy/AdvReac Type Severity Reaction Status Date / Time No Known Allergies Allergy Verified 10/03/25 14:11 Family History Father Cancer Lung cancer Sister Cancer Breast cancer Pancreas cancer Surgical History History of coronary artery bypass surgery (~07/04/19) History of aortic valve replacement with bioprosthetic valve (~07/04/19) History of right and left heart catheterization (03/02/19) S/P partial colectomy Umbilical hernia, incarcerated (12/04/18) Social History household members: none housing: intermediate current occupational status: retired Smoking Status: Former smoker alcohol intake: never substance use type: does not use caffeine: Yes Type: carbonated beverages and coffee eating out: 1-3 times/week adán/congregational: Caodaism seatbelt use: always do you feel safe at home: Yes ROS ROS Narrative Review of systems was unobtainable from the patient due to chronic cognitive impairment Vital Signs Vital Signs Vital Signs: 10/03/25 14:02 10/03/25 14:09 10/03/25 14:14 Temperature 97.6 F L 97.6 F L Temperature Source Oral Oral Pulse Rate 100 100 Respiratory Rate 15 14 Respiratory Effort Normal Respiratory Pattern Normal Blood Pressure 88/54 L 88/54 L Blood Pressure Mean 65 65 Blood Pressure Source Blood Pressure Position Blood Pressure Location Pulse Ox 91 91 Oxygen Delivery Method Nasal Cannula Nasal Cannula Oxygen Flow Rate (L/min) 2 2 10/03/25 14:23 10/03/25 16:01 10/03/25 16:25 Temperature Temperature Source Pulse Rate 101 H Respiratory Rate 15 Respiratory Effort Respiratory Pattern Blood Pressure 112/68 114/69 Blood Pressure Mean 82 84 Blood Pressure Source Blood Pressure Position Blood Pressure Location Pulse Ox 100 Oxygen Delivery Method Nasal Cannula Nasal Cannula Oxygen Flow Rate (L/min) 3 2 10/03/25 16:42 10/03/25 18:01 Temperature 97.6 F L 97.6 F L Temperature Source Oral Pulse Rate 101 H 98 Respiratory Rate 15 18 Respiratory Effort Respiratory Pattern Blood Pressure 114/69 122/68 H Blood Pressure Mean 84 86 Blood Pressure Source Monitor Blood Pressure Position Supine Blood Pressure Location Left Arm Pulse Ox 100 100 Oxygen Delivery Method Nasal Cannula Oxygen Flow Rate (L/min) 2 Weight Weight: 85.3 kg Body Mass Index (BMI) 27.7 Physical Exam Const alert and no apparent distress Constitutional Narrative: Patient appears older than his stated age, he is confused General Appearance: cooperative and well developed Orientation / Consciousness: awake HEENT normocephalic, head/scalp atraumatic, hearing grossly normal bilaterally and moist oral mucous membranes Eyes PERRL, EOMs intact bilaterally and conjunctivae normal Neck supple, no JVD, thyroid normal and no carotid bruits General: trachea midline Resp normal respiratory effort, no retractions and no use of accessory muscles Resp Narrative: Decreased breath sounds are noted over the left lung base Auscultation: Negative for rales, rhonchi or wheezes Cardio S1 normal heart sound, S2 normal heart sound, no murmurs, no rub and no gallops Cardio Narrative: Heart rate and rhythm is irregular GI normal to inspection, nondistended, normoactive bowel sounds, soft to palpation, non-tender and non-distended Extremity Extremity Narrative: Mild nonpitting edema is noted over the lower legs bilaterally Skin no rashes or lesions noted General Skin Exam: no breakdown Neuro CN's II-XII intact bilaterally, moves all extremities and no focal motor deficits Neuro Narrative: Patient is confused Sensorium / Orientation: awake and alert Speech: speech normal Psych Psych Narrative: Patient is confused, he does not appear anxious or agitated Results Lab / Micro Data 10/03/25 14:30 10/03/25 14:30 Labs: Laboratory Results - last 24 hr 10/03/25 14:30: WBC 21.5 H, RBC 4.01 L, Hgb 9.6 L, Hct 35.2 L, MCV 87.8, MCH 23.9 L, MCHC 27.3 L, RDW Std Deviation 61.3 H, RDW Coeff of Genesis 19.8 H, Plt Count 259, MPV 8.9, Immature Gran % (Auto) 4.200 H, Neut % (Auto) 68.6, Lymph % (Auto) 17.5 L, [place] % (Auto) 9.2, Eos % (Auto) 0.2, Baso % (Auto) 0.3, Absolute Neuts (auto) 14.8 H, Absolute Lymphs (auto) 3.78, Nucleated RBC % 0.1, PT 17.0 H , INR 1.4, APTT 34.5, Sodium 142, Potassium 3.7, Chloride 114 H, Carbon Dioxide 17.6 L, Anion Gap 11, BUN 40 H, Creatinine 1.37 H, Estim Creat Clear Calc 41.79 L, Est GFR (MDRD) Non-Af 50 L, BUN/Creatinine Ratio 29.1 H, Glucose 127 H, L actic Acid 3.0 H*, Calcium 8.2, Total Bilirubin 0.39, AST 82 H, ALT 34, Alkaline Phosphatase 162 H, Total Protein 6.0, Albumin 2.0 L, Globulin 4.0, A lbumin/Globulin Ratio 0.5 L 10/03/25 15:00: Urine Color Yellow, Urine Clarity Clear, Urine pH 6.0, Ur Specific [place] 1.020, Urine Protein 100 H, Urine Glucose (UA) Normal, Urine Ketones Negative, Urine Occult Blood 10 H, Urine Nitrite Negative, Urine Bilirubin Negative, Urine Urobilinogen Normal, Ur Leukocyte Esterase Negative, Urine RBC 0 SEEN, Urine WBC 0 SEEN, Ur Squamous Epith Cells 0 SEEN, Urine Bacteria 0 SEEN, Fine Granular Casts 10-25 SEEN, Urine Mucus 0 SEEN Imaging Radiology Impression Abdomen/Pelvis CT 10/03/25 14:23 IMPRESSION: [place] colitis. Multiple gallstones. Findings suggestive of small amount of pericholecystic fluid. Inflammatory changes seen in the right lower quadrant. Pancreatic atrophy. Bilateral pleural effusions right greater than left with bibasilar atelectasis. Reading Location: [id number] Chest X-Ray 10/03/25 15:30 IMPRESSION: Elevation of the left hemidiaphragm with findings suggestive of a small left pleural effusion with left basilar atelectasis and/or infiltrate. Reading Location: [facility] Assessment & Plan Assessment/Plan (1) C. difficile colitis: PLAN: Plan 1. Severe sepsis secondary to C. difficile colitis-patient will be admitted to PCU, IV Flagyl be administered, patient will be on oral vancomycin and receive IV fluids. Labs will be monitored. #2 mild dehydration-patient will be given IV fluids and labs will be monitored. #3 chronic atrial fibrillation-patient is on rate limiting medication, he is not on anticoagulation at this time-the reason for this is unknown, patient appears to be at high risk for falls however #4 chronic cognitive impairment-most probably secondary to dementia, complicates care, management, recovery, and prognosis, patient is on Aricept #5 valvular heart disease-patient has a bioprosthetic aortic valve #6 atherosclerotic heart disease-this appears stable at this time, patient remains on dual antiplatelet therapy as well as a statin #7 hyperlipidemia-patient is on a statin #8 essential hypertension-patient currently is on losartan, he responded well to fluids in the emergency room and I have elected to keep the patient on his present medication #9 left lower lobe mass-this was detected during the patient's last hospitalization in late August of this year/early September-patient will need workup as an outpatient including a possible PET scan Total clinical time spent by myself addressing the patient's medical issues, reviewing all of his data, and collaborating with patient's care team: 75 minutes Charges/Coding Visit Charges Inpatient E&M: 94493 Init Hosp D/C Safety Score for UGIB Assessment [place] Bleeding Score (GBS): Stratifies upper GI bleeding patients who are low-risk and candidates for outpatient management. Sex: Male Hemoglobin, BUN, Recent Vital Signs: Hgb 9.6 g/dL (13.0-16.5) L 10/03/25 14:30 BUN 40 mg/dL (4-19) H 10/03/25 14:30 Pulse Rate 98 Blood Pressure 122/68 Total Risk Score: 3 Score Interpretation: Score of 0: A GBS of 0 is a ?Low Risk? GI bleed, and is highly sensitive (99.6% in a 2007 retrospective study) for predicting which patients did not require any ?medical intervention?: blood transfusion, endoscopy, or surgery. This was confirmed in a 2009 [facility] study where patients with a score of 0 were actually discharged and had no GI bleeding mortality at 6 month followup Score above 0: A GBS greater than zero suggests a ?High Risk? GI bleed that is likely to require ?medical intervention?: transfusion, endoscopy, or surgery. A higher GBS also correlated with a higher likelihood of needing intervention Scores >/= 6 are associated with >50% risk of needing intervention D/C Safety Score for LGIB Assessment Assessment Tool: Readmission and adverse event risk in patients with acute lower GI bleeding. Age, in years: >/= 70 Sex: Male Hemoglobin and Recent Vital Signs: Hgb 9.6 g/dL (13.0-16.5) L 10/03/25 14:30 Pulse Rate 98 10/03/25 18:01 Blood Pressure 122/68 10/03/25 18:01 Probability of safe discharge: 98% Total Risk Score: 3 Score Interpretation: Probability Percentage of safe discharge (absence of rebleeding, blood transfusion, therapeutic intervention, 28 day readmission, or ) Score of 8 or below: Consider discharge, with appropriate precautions. Score of 9 or above: Discharge NOT recommended. Consider admission with further workup and resuscitation as necessary.
--- NOTE | 2025-10-03 20:03 | PCM.HOSP.N ---
Hospitalist Note Pt c/o painful gums while dentures are in place. He reports some weight loss that has made for ill-fitted dentures. He reports tenderness to upper and lower bars. Assessed and found no open or blistered areas, no evidence of thrush, or infection. Discussed w/, chloraseptic spray order placed as diet was already soft and bite-sized.
[2025-10-03] MEDS: Heparin Injection (Vial) 5,000 UNIT/ML VIAL 5000 UNIT SC (21:22)
[2025-10-03] MEDS: Fluticasone 0.05% 1 SPRAY NASAL.SRY NASAL (21:23)
[2025-10-03] MEDS: metroNIDAZOLE 500 MG/100 ML BAG 100 MG IV (23:44)
[2025-10-04] VITALS (11 sets, daily range): BP systolic 82–115; BP diastolic 52–80; PULSE 86–103; RESP 12–19; TEMP 35.9–36.1; O2SAT 94–100
[2025-10-04] MEDS: Vancomycin 125 MG/5 ML Susp PO.SYRINGE PO ×3 (05:27→17:21)
[2025-10-04] MEDS: 0.9% Normal Saline (1000mL) 1,000 ML 100 ML IV (05:27)
[2025-10-04] MEDS: metroNIDAZOLE 500 MG/100 ML BAG 100 MG IV ×3 (05:27→17:22)
[2025-10-04 05:35] LABS: Hematocrit 30.0 % (40-54); Hemoglobin 8.1 g/dL (13.0-16.5); Immature Granulocytes Count 0.770 X10^3/uL (0.0-0.0); Mean Corp Hgb Conc 27.0 g/dL (32-36); Mean Corpuscular Volume 88.0 fL (80-94); Mean Platelet Vol. 9.0 fl (6.2-12.0); NRBC Flagged by Analyzer 0 % (0-5); POSITIVE COUNT YES; POSITIVE MORPHOLOGY YES; Platelet Count 209 K/mm3 (150-450); RBC Distribution Width CV 19.5 % (11.6-14.6); RBC Distribution Width SD 61.4 fl (35.1-43.9); Red Blood Count 3.41 M/mm3 (4.6-6.2); White Blood Count 14.7 K/mm3 (4.4-11.0)
[2025-10-04 06:21] LABS: Anion Gap 12 (5-15); BUN 34 mg/dL (4-19); BUN/Creat Ratio 28.0 RATIO (10-20); Calcium,Total 7.4 mg/dL (7.6-11.0); Carbon Dioxide 14.2 mmol/L (21.0-32.0); Chloride 117 mmol/L (98-108); Estimated Creatinine Clearance 46.18 ml/min (50-250); Glucose 89 mg/dL (70-99); Potassium 3.5 mmol/L (3.3-5.1)
[2025-10-04 06:22] LABS: Differential Indicated SCAN CRITERIA MET
[2025-10-04 06:30] LABS: Neutrophil-Segmented 72 % (47-70)
[2025-10-04 06:33] LABS: Reactive Lymphocyte 2+
[2025-10-04 06:34] LABS: Anisocytosis RARE; Polychromasia RARE
[2025-10-04 06:35] LABS: Burr Cells RARE
[2025-10-04 06:36] LABS: Basophilic Stippling RARE; Differential Comment SCANNED
[2025-10-04 06:37] LABS: Scan Smear per Review Criteria MANUAL DIFF
[2025-10-04] MEDS: Aspirin E.C. 81 MG Tablet PO (08:36)
[2025-10-04] MEDS: Fluticasone 0.05% 1 SPRAY NASAL.SRY NASAL ×2 (08:37→21:57)
[2025-10-04] MEDS: Heparin Injection (Vial) 5,000 UNIT/ML VIAL 5000 UNIT SC ×2 (08:37→21:54)
[2025-10-04] MEDS: Carboxymethylcellulose sodium gel dropperette 1 EACH EACH EYE (09:21)
--- NOTE | 2025-10-04 10:47 | CASEMGMT ---
RN CM called Helena mccormack, SOTERO. Per Helena, plans is for patient to return to [facility] when medically ready. Sister had no further questions. CM updated DC event planning manager to send updates to [facility]. CM will continue to follow this patient and plan for a safe discharge.
--- NOTE | 2025-10-04 11:15 | CASEMGMT ---
Addendum entered by Geno Baptiste 10/04/25 11:49: Updates rec'd by [facility]. Pt is currently being skilled and will return skilled. Geno Baptiste DC Planning Asst. Original Note: Discharge Planning Updates sent via [facility] to [facility]. Geno Baptiste DC Planning Asst.
--- NOTE | 2025-10-04 15:31 | PCM.PROGNOTE ---
Subjective Subjective Patient seen and examined with his nurse by his bedside. He had no active complaints and feels much better. He still having diarrhea. He denies any fever or chills, any palpitations, nausea or vomiting or any other symptoms. Review of systems otherwise negative. He has been managed for sepsis due to C. difficile colitis. His blood pressure has been running low and was 85/65 this afternoon. Objective Data Objective Data Vital Signs: Vital Signs Temp Pulse Resp BP Pulse Ox O2 Del Method O2 Flow Rate 96.8 F L 99 16 85/65 L 97 Nasal Cannula 3 10/04/25 12:00 10/04/25 12:00 10/04/25 12:00 10/04/25 13:56 10/04/25 12:00 10/04/25 12:00 10/04/25 12:00 Oxygen Flow Rate (L/min) 3 Oxygen Delivery Method Nasal Cannula Weight: 188 lb 0.869 oz Body Mass Index (BMI) 27.7 Intake & Output: Intake and Output for Last 24 Hours 10/02/25 10/03/25 10/04/25 23:59 23:59 23:59 Intake Total 4428.33 / 4668.33 1450 / 1450 Output Total 400 / 400 Balance 4428.33 / 4418.33 1050 / 1050 Lab / Micro Data 10/04/25 04:39 10/04/25 04:39 Labs: Laboratory Results - last 24 hr 10/03/25 19:46: Lactic Acid 3.3 H* 10/04/25 04:39: WBC 14.7 H, RBC 3.41 L, Hgb 8.1 L, Hct 30.0 L, MCV 88.0, MCH 23.8 L, MCHC 27.0 L, RDW Std Deviation 61.4 H, RDW Coeff of Genesis 19.5 H, Plt Count 209, MPV 9.0, Immature Gran % (Auto) Not Reportable, Neut % (Auto) Not Reportable, Lymph % (Auto) Not Reportable, [place] % (Auto) Not Reportable, Eos % (Auto) Not Reportable, Baso % (Auto) Not Reportable, Absolute Neuts (auto) 10.6 H, Absolute Lymphs (auto) 3.38, Total Counted Not Reportable, Neutrophils % (Manual) 72 H, Lymphocytes % (Manual) 23, Monocytes % (Manual) 4, Eosinophils % (Manual) 1, Nucleated RBC % 0, Differential Comment SCANNED, Atypical Lymphocytes 1+, Reactive Lymphocytes 2+, Platelet Estimate ADEQUATE, Polychromasia RARE, Basophilic Stippling RARE, Anisocytosis RARE, Ovalocytes RARE, Dawn Cells RARE, Sodium 144, Potassium 3.5, Chloride 117 H, Carbon Dioxide 14.2 L, Anion Gap 12, BUN 34 H, Creatinine 1.22 H, Estim Creat Clear Calc 46.18 L, Est GFR (MDRD) Non-Af 57 L, BUN/Creatinine Ratio 28.0 H, Glucose 89, Calcium 7.4 L Radiography Diagnostic Testing: Radiology Impression Abdomen/Pelvis CT 10/03/25 14:23 IMPRESSION: [place] colitis. Multiple gallstones. Findings suggestive of small amount of pericholecystic fluid. Inflammatory changes seen in the right lower quadrant. Pancreatic atrophy. Bilateral pleural effusions right greater than left with bibasilar atelectasis. Reading Location: [facility] Chest X-Ray 10/03/25 15:30 IMPRESSION: Elevation of the left hemidiaphragm with findings suggestive of a small left pleural effusion with left basilar atelectasis and/or infiltrate. Reading Location: [facility] Physical Exam Const alert, oriented x3 and no apparent distress General Appearance: cooperative HEENT normocephalic and head/scalp atraumatic Mouth: dry mucous membranes Eyes EOMs intact bilaterally Neck supple and no JVD Lymph Lymphatic: no lymphedema noted Resp normal respiratory effort, normal air movement and clear to auscultation bilaterally Cardio regular rate, regular rhythm, S1 normal heart sound, S2 normal heart sound and no murmurs GI normal to inspection, nondistended, normoactive bowel sounds, soft to palpation, non-tender and non-distended Extremity normal capillary refill, no clubbing, cyanosis or edema and no calf tenderness General Extremity: no tenderness to palpation of joints or extremities Skin General Skin Exam: no breakdown Neuro no focal motor deficits and no sensory deficits noted Motor Exam: general weakness Psych thought process normal, cooperative and affect normal Appearance: appropriate Assessment & Plan Assessment/Plan (1) Mae difficile colitis: PLAN: Plan # Sepsis due to acute C diff colitis Patient was diagnosed with C. difficile on 09/27/2023. Still having diarrhea. He was also hypotensive. Patient still remains hypotensive. On oral vancomycin and IV Flagyl. Will continue antibiotics. Consult ID. Hydrate aggressively with IV fluids for hypotension WBC has trended down to 14.7. #Hypotension: Likely hypovolemic due to diarrhea from C. difficile. Hold BP meds. Hydrate aggressively with IV fluids and monitor. #Non-anion gap metabolic acidosis: Bicarb is 14.2 and anion gap is 12. Likely due to diarrhea from C. difficile. Should improve as diarrhea resolves. #MAURO: Creatinine is 1.22. Was 1.37 on admission. Baseline is around 0.9. Likely prerenal due to diarrhea. Should improve with hydration. #A-fib: Not anticoagulated likely due to high risk of falls. #History of bioprosthetic aortic valve: Stable #CAD: On aspirin and Plavix as well as statin #Hyperlipidemia: On statin #Benign essential hypertension: Hold losartan on account of hypotension. #Left lower lung mass: Will need follow-up with pulmonology on outpatient basis for further workup. This was detected during patient's most recent admission in August 2025 and needs follow-up with pulmonology. #DVT prophylaxis: Lovenox CODE STATUS: Full code Charges/Coding Visit Charges Inpatient E&M: 18808 Subs Hosp L2
[2025-10-04] MEDS: 0.9% Normal Saline (1000mL) 1,000 ML 125 ML IV (15:51)
[2025-10-04] MEDS: Ensure Plus High Protein 120 ML LIQUID PO ×2 (17:22→21:56)
[2025-10-05] MEDS: 0.9% Normal Saline (1000mL) 1,000 ML 125 ML IV (00:30)
[2025-10-05] MEDS: Vancomycin 125 MG/5 ML Susp PO.SYRINGE PO ×5 (00:30→23:38)
[2025-10-05] MEDS: metroNIDAZOLE 500 MG/100 ML BAG 100 MG IV ×5 (00:32→23:39)
[2025-10-05 04:07] VITALS: BP 108/63; PULSE 87; RESP 18; TEMP 35.9; O2SAT 100
[2025-10-05 04:11] VITALS: O2SAT 98
[2025-10-05 04:20] VITALS: O2SAT 97
[2025-10-05 05:01] LABS: Hematocrit 27.2 % (40-54); Hemoglobin 7.3 g/dL (13.0-16.5); Immature Granulocytes Count 0.490 X10^3/uL (0.0-0.0); Mean Corp Hgb Conc 26.8 g/dL (32-36); Mean Corpuscular Volume 87.2 fL (80-94); Mean Platelet Vol. 9.3 fl (6.2-12.0); NRBC Flagged by Analyzer 0 % (0-5); Platelet Count 214 K/mm3 (150-450); RBC Distribution Width CV 19.8 % (11.6-14.6); RBC Distribution Width SD 61.1 fl (35.1-43.9); Red Blood Count 3.12 M/mm3 (4.6-6.2); White Blood Count 13.7 K/mm3 (4.4-11.0)
[2025-10-05 05:36] LABS: Anion Gap 8 (5-15); BUN 33 mg/dL (4-19); BUN/Creat Ratio 24.8 RATIO (10-20); Calcium,Total 7.6 mg/dL (7.6-11.0); Carbon Dioxide 15.2 mmol/L (21.0-32.0); Chloride 118 mmol/L (98-108); Estimated Creatinine Clearance 42.36 ml/min (50-250); Glucose 95 mg/dL (70-99); Potassium 3.5 mmol/L (3.3-5.1)
[2025-10-05 08:38] LABS: Hematocrit 28.9 % (40-54); Hemoglobin 7.9 g/dL (13.0-16.5)
[2025-10-05 10:00] VITALS: BP 140/88; PULSE 90; RESP 16; TEMP 35.7; O2SAT 95
[2025-10-05] MEDS: Aspirin E.C. 81 MG Tablet PO (10:43)
[2025-10-05] MEDS: Carboxymethylcellulose sodium gel dropperette 1 EACH EACH EYE (10:45)
[2025-10-05] MEDS: Fluticasone 0.05% 1 SPRAY NASAL.SRY NASAL (10:45)
--- NOTE | 2025-10-05 11:19 | PN_ITS ---
Subjective Subjective Patient seen and examined with his nurse by his bedside. He had no active complaints. He said he had had some episodes of diarrhea overnight. Denies any nausea or vomiting. He has had poor oral intake and poor urine output and urine is concentrated. Hemoglobin today dropped to 7.3 but on recheck was 7.9. Review of systems otherwise negative. Objective Data Objective Data Vital Signs: Vital Signs Temp Pulse Resp BP Pulse Ox O2 Del Method O2 Flow Rate 96.3 F L 90 16 140/88 H 95 Nasal Cannula 2 10/05/25 10:00 10/05/25 10:00 10/05/25 10:00 10/05/25 10:00 10/05/25 10:00 10/05/25 10:00 10/05/25 10:00 Oxygen Flow Rate (L/min) 2 Oxygen Delivery Method Nasal Cannula Weight: 188 lb 0.869 oz Body Mass Index (BMI) 27.7 Intake & Output: Intake and Output for Last 24 Hours 10/03/25 10/04/25 10/05/25 23:59 23:59 23:59 Intake Total 4428.33 / 4668.33 3670 / 3670 444.17 / 444.17 Output Total 500 / 500 500 / 500 Balance 4428.33 / 4418.33 3170 / 3170 -55.83 / -55.83 Lab / Micro Data 10/05/25 08:24 10/05/25 04:44 Labs: Laboratory Results - last 24 hr 10/05/25 04:44: WBC 13.7 H, RBC 3.12 L, Hgb 7.3 L, Hct 27.2 L, MCV 87.2, MCH 23.4 L, MCHC 26.8 L, RDW Std Deviation 61.1 H, RDW Coeff of Genesis 19.8 H, Plt Count 214, MPV 9.3, Immature Gran % (Auto) 3.600 H, Neut % (Auto) 66.0, Lymph % (Auto) 20.2, [place] % (Auto) 9.8, Eos % (Auto) 0.3, Baso % (Auto) 0.1, Absolute Neuts (auto) 9.1 H, Absolute Lymphs (auto) 2.78, Nucleated RBC % 0, Sodium 141, Potassium 3.5, Chloride 118 H, Carbon Dioxide 15.2 L, Anion Gap 8, BUN 33 H, C reatinine 1.33 H, Estim Creat Clear Calc 42.36 L, Est GFR (MDRD) Non-Af 52 L, B UN/Creatinine Ratio 24.8 H, Glucose 95, Calcium 7.6 10/05/25 08:24: Hgb 7.9 L, Hct 28.9 L Micro: Microbiology 10/03/25 15:00 Urine, Random Urine Culture - Final Culture exhibits no growth. 10/03/25 14:30 Blood Culture (Wb) - Right Forearm Blood Culture - Preliminary No growth in 48 hours. 10/03/25 14:30 Blood Culture (Wb) - Right Forearm Blood Culture - Preliminary No growth in 48 hours. Physical Exam Const alert, oriented x3 and no apparent distress Constitutional Narrative: flat affect General Appearance: cooperative and well developed Orientation / Consciousness: awake HEENT normocephalic, head/scalp atraumatic, hearing grossly normal bilaterally and moist oral mucous membranes Eyes EOMs intact bilaterally and conjunctivae normal Neck supple and no JVD Lymph Lymphatic: no lymphedema noted Resp normal respiratory effort, normal air movement, no retractions, no use of accessory muscles and clear to auscultation bilaterally Cardio regular rate, regular rhythm, S1 normal heart sound, S2 normal heart sound and no murmurs GI normal to inspection, nondistended, normoactive bowel sounds, soft to palpation, non-tender and non-distended Extremity normal capillary refill, no clubbing, cyanosis or edema and no calf tenderness General Extremity: no tenderness to palpation of joints or extremities Skin no rashes or lesions noted General Skin Exam: no breakdown Neuro CN's II-XII intact bilaterally, moves all extremities, no focal motor deficits and no sensory deficits noted Sensorium / Orientation: awake and alert Speech: speech normal Motor Exam: general weakness Psych cooperative Appearance: appropriate Mood & Affect: flat affect Assessment & Plan Assessment/Plan (1) C. difficile colitis: PLAN: Plan # Sepsis due to acute C diff colitis * Patient was diagnosed with C. difficile on 09/27/2023. Still having diarrhea. He was also hypotensive. * On oral vancomycin and IV Flagyl. Will continue antibiotics. * Hydrate aggressively with IV fluids for hypotension * WBC has trended down to 13.7 today #Hypotension: Likely hypovolemic due to diarrhea from C. difficile. Hold BP meds. Hydrate aggressively with IV fluids and monitor. Resolved. #Non-anion gap metabolic acidosis: Bicarb is 15.2 and anion gap is 8. Likely due to diarrhea from C. difficile. Should improve as diarrhea resolves. #MAURO: Creatinine is 1.33. Was 1.37 on admission. Baseline is around 0.9. Likely prerenal due to diarrhea. Should improve with hydration. #A-fib: Not anticoagulated likely due to high risk of falls. #History of bioprosthetic aortic valve: Stable #CAD: On aspirin and Plavix as well as statin #Hyperlipidemia: On statin #Benign essential hypertension: Hold losartan on account of hypotension. #Left lower lung mass: Will need follow-up with pulmonology on outpatient basis for further workup. This was detected during patient's most recent admission in August 2025 and needs follow-up with pulmonology. #DVT prophylaxis: Lovenox CODE STATUS: Full code Charges/Coding Visit Charges Inpatient E&M: 39248 Subs Hosp L2
[2025-10-05] MEDS: 0.9% Normal Saline (1000mL) 1,000 ML 150 ML IV ×2 (14:00→22:23)
[2025-10-05 16:00] VITALS: BP 112/65; PULSE 88; RESP 16; TEMP 35.9; O2SAT 96
[2025-10-05 22:02] VITALS: BP 124/74; PULSE 107; RESP 18; TEMP 36.1; O2SAT 100
[2025-10-06] VITALS (14 sets, daily range): BP systolic 79–112; BP diastolic 52–74; PULSE 68–113; RESP 14–18; TEMP 35.7–36.9; O2SAT 93–100; BMI 27.7
[2025-10-06 05:40] LABS: Hematocrit 26.1 % (40-54); Hemoglobin 7.2 g/dL (13.0-16.5); Immature Granulocytes Count 0.320 X10^3/uL (0.0-0.0); Mean Corp Hgb Conc 27.6 g/dL (32-36); Mean Corpuscular Volume 86.4 fL (80-94); Mean Platelet Vol. 8.9 fl (6.2-12.0); NRBC Flagged by Analyzer 0.1 % (0-5); Platelet Count 194 K/mm3 (150-450); RBC Distribution Width CV 19.9 % (11.6-14.6); RBC Distribution Width SD 61.1 fl (35.1-43.9); Red Blood Count 3.02 M/mm3 (4.6-6.2); White Blood Count 15.2 K/mm3 (4.4-11.0)
[2025-10-06] MEDS: Vancomycin 125 MG/5 ML Susp PO.SYRINGE PO ×2 (05:51→23:21)
[2025-10-06] MEDS: metroNIDAZOLE 500 MG/100 ML BAG 100 MG IV ×2 (05:52→11:46)
[2025-10-06 06:25] LABS: Anion Gap 8 (5-15); BUN 34 mg/dL (4-19); BUN/Creat Ratio 23.4 RATIO (10-20); Calcium,Total 7.7 mg/dL (7.6-11.0); Carbon Dioxide 15.6 mmol/L (21.0-32.0); Chloride 119 mmol/L (98-108); Estimated Creatinine Clearance 38.59 ml/min (50-250); Glucose 86 mg/dL (70-99); Potassium 3.7 mmol/L (3.3-5.1)
[2025-10-06 09:11] LABS: Ferritin 646 ng/mL (37-417); Iron 32 ug/dL (65-175); Iron Binding Capacity,Unsat 66 ug/dL (228-428)
[2025-10-06 09:37] LABS: Iron Binding Capacity,Total 98 ug/dL (250-450)
--- NOTE | 2025-10-06 09:55 | CASEMGMT ---
Discharge Planning Updates sent via [facility] to [facility] with note that there is a slight chance pt could return over the weekend. Geno Baptiste DC Planning Asst.
[2025-10-06] MEDS: Carboxymethylcellulose sodium gel dropperette 1 EACH EACH EYE (10:33)
[2025-10-06] MEDS: Fluticasone 0.05% 1 SPRAY NASAL.SRY NASAL ×2 (10:33→22:49)
--- NOTE | 2025-10-06 11:39 | CASEMGMT ---
Discharge Planning Green Sheet and transport form completed and placed in pts chart. Geno Baptiste DC Planning Asst.
[2025-10-06] MEDS: 0.9% Saline Lock 10 ML Syringe IV (11:47)
--- NOTE | 2025-10-06 12:32 | PN_ITS ---
Subjective Subjective Patient seen and examined. He was lying calmly in bed and had no active complaints. Blood pressures running low at 87/54 this morning. Hemoglobin is also down to 7.2 and is due for her blood checked this morning is positive. Patient therefore being kept n.p.o. and gastroenterology consulted. Objective Data Objective Data Vital Signs: Vital Signs Temp Pulse Resp BP Pulse Ox O2 Del Method O2 Flow Rate 96.8 F L 68 18 87/54 L 96 Nasal Cannula 2 10/06/25 10:30 10/06/25 10:30 10/06/25 10:30 10/06/25 10:30 10/06/25 10:30 10/06/25 10:30 10/06/25 10:30 Oxygen Flow Rate (L/min) 2 Oxygen Delivery Method Nasal Cannula Weight: 188 lb 0.869 oz Body Mass Index (BMI) 27.7 Intake & Output: Intake and Output for Last 24 Hours 10/04/25 10/05/25 10/06/25 23:59 23:59 23:59 Intake Total 3670 / 3670 2640.00 / 2640.00 800 / 800 Output Total 500 / 500 950 / 950 400 / 400 Balance 3170 / 3170 1690.00 / 1690.00 400 / 400 Lab / Micro Data 10/06/25 05:16 10/06/25 05:16 Labs: Laboratory Results - last 24 hr 10/05/25 17:05: POC Glucose 80 10/06/25 05:16: WBC 15.2 H, RBC 3.02 L, Hgb 7.2 L, Hct 26.1 L, MCV 86.4, MCH 23.8 L, MCHC 27.6 L, RDW Std Deviation 61.1 H, RDW Coeff of Genesis 19.9 H, Plt Count 194, MPV 8.9, Immature Gran % (Auto) 2.100 H, Neut % (Auto) 67.9, Lymph % (Auto) 20.3, [place] % (Auto) 9.0, Eos % (Auto) 0.5, Baso % (Auto) 0.2, Absolute Neuts (auto) 10.3 H, Absolute Lymphs (auto) 3.07, Nucleated RBC % 0.1, Sodium 142, Potassium 3.7, Chloride 119 H, Carbon Dioxide 15.6 L, Anion Gap 8, BUN 34 H , Creatinine 1.46 H, Estim Creat Clear Calc 38.59 L, Est GFR (MDRD) Non-Af 46 L, BUN/Creatinine Ratio 23.4 H, Glucose 86, Calcium 7.7, Iron 32 L, TIBC 98 L, Iron Saturation 32.7, Unsaturated IBC 66 L, Ferritin 646 H Micro: Microbiology 10/06/25 02:30 Stool Stool Occult Blood (RYLAN) - Final Occult Blood Positive 10/03/25 15:00 Urine, Random Urine Culture - Final Culture exhibits no growth. 10/03/25 14:30 Blood Culture (Wb) - Right Forearm Blood Culture - Preliminary No growth in 48 hours. 10/03/25 14:30 Blood Culture (Wb) - Right Forearm Blood Culture - Preliminary No growth in 48 hours. Physical Exam Const alert and no apparent distress General Appearance: cooperative Orientation / Consciousness: awake HEENT normocephalic, head/scalp atraumatic, hearing grossly normal bilaterally and moist oral mucous membranes Eyes PERRL, EOMs intact bilaterally and conjunctivae normal Neck supple, no JVD, thyroid normal and no carotid bruits General: trachea midline Lymph Lymphatic: no lymphedema noted Resp normal respiratory effort, normal air movement, no retractions, no use of accessory muscles and clear to auscultation bilaterally Resp Narrative: mildly diminished breath sounds bibasally, no wheezes or crackles. On 2L of oxygen by nasal canula Cardio regular rate, regular rhythm, S1 normal heart sound, S2 normal heart sound and no murmurs GI normal to inspection, nondistended, normoactive bowel sounds, soft to palpation, non-tender and non-distended Extremity normal capillary refill, no clubbing, cyanosis or edema and no calf tenderness General Extremity: no tenderness to palpation of joints or extremities Skin no rashes or lesions noted General Skin Exam: no breakdown Neuro CN's II-XII intact bilaterally, moves all extremities, no focal motor deficits and no sensory deficits noted Neuro Narrative: frail, weak Sensorium / Orientation: awake Motor Exam: general weakness Psych Psych Narrative: pateint frail weak Mood & Affect: flat affect Assessment & Plan Assessment/Plan (1) C. difficile colitis: PLAN: Plan # Sepsis due to acute C diff colitis * Patient was diagnosed with C. difficile on 09/27/2023. Still having diarrhea. He was also hypotensive. * On oral vancomycin and IV Flagyl. Will continue antibiotics. * Hydrate aggressively with IV fluids for hypotension * WBC today is 15.2. #Hypotension: Likely hypovolemic due to diarrhea from C. difficile. Hold BP meds on hold. Hydrate aggressively with IV fluids and monitor. #Non-anion gap metabolic acidosis: Bicarb is 15.6 and anion gap is 8. Likely due to diarrhea from C. difficile. Should improve as diarrhea resolves. #MAURO: Creatinine is 1. 4 6 today from 1.33 yesterday. Was 1.37 on admission. Baseline is around 0.9. Likely prerenal due to diarrhea. Should improve with hydration. #Acute on chronic anemia: * Hemoglobin is down to 7.2 today. Aspirin and Plavix held. * Stool for occult blood is positive. Iron panel showed Low iron levels with low TIBC and normal iron saturation and elevated ferritin indicating anemia of chronic disease.. Start on IV pantoprazole. Gastroenterology consulted. #A-fib: Not anticoagulated likely due to high risk of falls. #History of bioprosthetic aortic valve: Stable #CAD: On aspirin and Plavix as well as statin. Aspirin and Plavix on hold due to acute on chronic anemia #Hyperlipidemia: On statin #Benign essential hypertension: Hold losartan on account of hypotension. #Left lower lung mass: Will need follow-up with pulmonology on outpatient basis for further workup. This was detected during patient's most recent admission in August 2025 and needs follow-up with pulmonology. #DVT prophylaxis: Lovenox discontinued. SCDs. CODE STATUS: Full code Charges/Coding Visit Charges Inpatient E&M: 87245 [facility] Hosp L3
--- NOTE | 2025-10-06 13:57 | EX.PCM.CON.G ---
HPI Consult Data Date of Consult: 10/06/25 HPI Narrative Reason for Consultation: Acute blood loss anemia HPI Narrative: ELIAS JAQUEZ, is a 85 M who presents [to [facility] with altered mental status. He also has a history atrial fibrillation on anticoagulation. He has a history of coronary artery bypass surgery along with aortic valve replacement. I was asked to see the patient due to a decreasing hemoglobin and the need for anticoagulation. He also presented with diarrhea and in the hospital he was diagnosed with C. difficile colitis. His hemoglobin is dropped down from 11-7.] [facility] Medical History (Updated 10/06/25 @ 13:[address] Patterson Friend, DO) Anemia C. 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 History of aortic stenosis Vitamin D deficiency Allergic rhinitis BPH (benign prostatic hyperplasia) Hematuria Debility Aortic stenosis Bowel obstruction Mitral valve annular calcification Atrial fibrillation with rapid ventricular response Declining functional status Cognitive deficits Vitamin D deficiency Acute metabolic encephalopathy Acute kidney injury Prolonged QT interval Left bundle branch block Hyperlipidemia Essential (primary) hypertension Home Medications ?Medication ?Instructions ?Recorded ?Last Taken ?Type tamsulosin 0.4 mg capsule 0.4 mg PO QHS urine flow 08/20/19 Unknown History famotidine 40 mg tablet (Pepcid) 40 mg PO DAILY 08/10/20 Unknown History citalopram 10 mg tablet 10 mg PO DAILY 02/18/21 Unknown History donepezil 10 mg tablet 10 mg PO QHS 02/18/21 Unknown History quetiapine 25 mg tablet 25 mg PO QHS 02/18/21 Unknown History ascorbate calcium (vitamin C) 500 500 mg PO DAILY 01/13/22 Unknown History mg tablet carvedilol 3.125 mg tablet 3.125 mg PO BID #180 tabs 03/28/24 Unknown Rx vit C 250 mg-vit E 90 mg-zinc 40 1 tab PO BID 06/22/25 Unknown History mg-copper 1 [id number] capsule (PreserVision AREDS-2) albuterol sulfate 90 mcg/actuation 2 puff inhalation Q6H PRN 08/01/25 Unknown History aerosol inhaler shortness of breath or wheezing clopidogrel 75 mg tablet 75 mg PO DAILY #90 tabs 08/03/25 Unknown Rx aspirin 81 mg tablet,delayed 81 mg PO DAILY 09/19/25 Unknown History release (Adult Aspirin Regimen) atorvastatin 20 mg tablet (Lipitor) 20 mg PO QHS 09/19/25 Unknown History ferrous sulfate 325 mg (65 mg 325 mg PO DAILY 09/19/25 Unknown History iron) tablet (Feosol) fluticasone propionate 50 1 spray intranasal BID 09/19/25 Unknown History mcg/actuation nasal spray,suspension carboxymethylcellulose sodium 1 % 1 drp EACH EYE DAILY #0 ea 09/23/25 Unknown Rx eye gel in a dropperette (Refresh Celluvisc) ipratropium 0.5 mg-albuterol 3 mg 3 ml inhalation Q6H.RT PRN sob #0 09/23/25 Unknown Rx (2.5 mg base)/3 mL nebulization mL soln losartan 50 mg tablet 25 mg (1/2 x 50 mg) PO DAILY #90 09/23/25 Unknown Rx tabs Lactobacillus acidophilus 10 10,000 mmu cells PO BID 10/03/25 Unknown History billion cell capsule guaifenesin 1,200 mg tablet, 600 mg PO BID 10/03/25 Unknown History extended release 12 hr (Mucus Relief ER) sennosides 8.6 mg-docusate sodium 2 tab PO BID PRN constipation 10/03/25 Unknown History 50 mg tablet (Stimulant Laxative Plus) vancomycin 125 mg capsule 125 mg PO Q6H 10/03/25 Unknown History OXYGEN - Supplemental ([facility] hypoxia 10/04/25 Unknown History INFORMATIONAL USE ONLY) Allergy/AdvReac Type Severity Reaction Status Date / Time No Known Allergies Allergy Verified 10/03/25 14:11 Family History Father Cancer Lung cancer Sister Cancer Breast cancer Pancreas cancer Surgical History History of coronary artery bypass surgery (~07/04/19) History of aortic valve replacement with bioprosthetic valve (~07/04/19) History of right and left heart catheterization (03/02/19) S/P partial colectomy Umbilical hernia, incarcerated (12/04/18) Social History household members: none housing: correction current occupational status: retired Smoking Status: Former smoker alcohol intake: never substance use type: does not use caffeine: Yes Type: carbonated beverages and coffee eating out: 1-3 times/week adán/episcopalian: [employer] seatbelt use: always do you feel safe at home: Yes ROS Constitutional Constitutional: Denies fatigue, fever(s), poor appetite, weight gain or weight loss Gastrointestinal Gastrointestinal: Denies belching, bloating, change in bowel habits, change in stool character, chewing difficulty, coffee ground emesis, constipation, cramping, diarrhea, dyspepsia, dysphagia, early satiety, excessive flatus, fecal incontinence, heartburn, hematemesis, hematochezia, hemorrhoids, loose stools, melena, nausea, odynophagia, rectal bleeding, tenesmus, vomiting or weight changes Physical Exam Const alert, oriented x3, no apparent distress and healthy appearing General Appearance: cooperative GI normal to inspection, nondistended, normoactive bowel sounds, soft to palpation, non-tender and non-distended Percussion: normal to percussion Rectal Exam: deferred Lab / Micro Data 10/06/25 05:16 10/06/25 05:16 Labs: Laboratory Results - last 24 hr 10/05/25 17:05: POC Glucose 80 10/06/25 05:16: WBC 15.2 H, RBC 3.02 L, Hgb 7.2 L, Hct 26.1 L, MCV 86.4, MCH 23.8 L, MCHC 27.6 L, RDW Std Deviation 61.1 H, RDW Coeff of Genesis 19.9 H, Plt Count 194, MPV 8.9, Immature Gran % (Auto) 2.100 H, Neut % (Auto) 67.9, Lymph % (Auto) 20.3, [place] % (Auto) 9.0, Eos % (Auto) 0.5, Baso % (Auto) 0.2, Absolute Neuts (auto) 10.3 H, Absolute Lymphs (auto) 3.07, Nucleated RBC % 0.1, Sodium 142, Potassium 3.7, Chloride 119 H, Carbon Dioxide 15.6 L, Anion Gap 8, BUN 34 H, Creatinine 1.46 H, Estim Creat Clear Calc 38.59 L, Est GFR (MDRD) Non-Af 46 L, BUN/Creatinine Ratio 23.4 H, Glucose 86, Calcium 7.7, Iron 32 L, TIBC 98 L, Iron Saturation 32.7, Unsaturated IBC 66 L, Ferritin 646 H Micro: Microbiology 10/06/25 02:30 Stool Stool Occult Blood (RYLAN) - Final Occult Blood Positive 10/03/25 15:00 Urine, Random Urine Culture - Final Culture exhibits no growth. 10/03/25 14:30 Blood Culture (Wb) - Right Forearm Blood Culture - Preliminary No growth in 48 hours. 10/03/25 14:30 Blood Culture (Wb) - Right Forearm Blood Culture - Preliminary No growth in 48 hours. Assessment & Plan Assessment/Plan (1) Atrial fibrillation: (2) Anemia: QUALIFIERS: Anemia type: unspecified type Qualified Code(s): D64.9 - Anemia, unspecified PLAN: 85-year-old gentleman with history of atrial fibrillation on anticoagulation and aspirin with Plavix therapy along with vitamin C discovered to have a decrease in hemoglobin along with fecal positive stools. He will undergo an upper endoscopy to evaluate upper GI tract. He was explained alternatives, risk and benefits include not withstanding bleeding, infection, subsequent perforation, need for such and . He often ASA of 3. Charges/Coding Visit Charges Inpatient E&M: 23322 Init Hosp L3
[2025-10-06] MEDS: Pantoprazole Sodium 40 MG in 0.9% Normal Saline (100mL MB+) 100 ML 300 MG IV ×2 (14:13→22:48)
[2025-10-06] MEDS: Lactated Ringers 1,000 ML 15 ML IV (17:17)
--- NOTE | 2025-10-06 21:11 | PCM.PRE.AN2 ---
ASA Classification* ASA Classification ASA Classification: 3 and E Assessment & Plan Anesthesia* Anesthesia Assessment Anesthesia Assessment: Discussed sedation and/or anesthesia options, risks, benefits, and alternatives with patient/parents/legal guardian/POA. Questions invited. The patient/parents/legal guardian/POA seems to understand and agrees to proceed with anesthesia plan. Reviewed the physical assessment, medical history, allergy history and patient home medications list prior to surgery/procedure/anesthetic and documented any changes. Performed airway and anesthesia risk assessments. Anesthesia Type Anesthesia Type: MAC History Source History Obtained from:: Patient and Chart Anesthesia Focused Assessment* Temperature: 98.5 F Pulse Rate: 95 Blood Pressure: 106/62 Respiratory Rate: 14 Pulse Ox: 98 Oxygen Delivery Method: Nasal Cannula Oxygen Flow Rate (L/min): 2 Airway Assessment Mouth opens: >3 cm Mallampati Score: III Teeth Condition: Missing (Edentulous) Neck Range of motion (ROM): Limited ROM (Somewhat decreased) Labs Anesthesia Preop lab: CBC WBC, (4.4-11.0) 15.2 K/mm3 H Today, 05:16 RBC, (4.6-6.2) 3.02 M/mm3 L Today, 05:16 Hgb, (13.0-16.5) 7.2 g/dL L Today, 05:16 Hct, (40-54) 26.1 % L Today, 05:16 Plt Count, (150-450) 194 K/mm3 Today, 05:16 CHEMISTRY Potassium, (3.3-5.1) 3.7 mmol/L Today, 05:16 Sodium, (133-145) 142 mmol/L Today, 05:16 Magnesium, (1.5-2.2) 1.7 mg/dL 09/21/25, 05:16 Phosphorus, (2.7-4.5) 2.8 mg/dL 09/21/25, 05:16 BUN, (4-19) 34 mg/dL H Today, 05:16 Creatinine, (0.70-1.20) 1.46 mg/dL H Today, 05:16 Glucose, (70-99) 86 mg/dL Today, 05:16 POC Glucose, (74-106) 80 mg/dL 10/05/25, 17:05 TSH, (0.358-3.740) 3.070 uIU/mL 12/29/24, 16:29 COAG PT, (11.7-14.9) 17.0 SECONDS H 10/03/25, 14:30 Pre-Assessment Diagnosis/Proposed Procedure Planned Operative Procedure(s): EGD Anesthesia History 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 When Was Last Pacemaker Check QUESTION #4 FULL TEXT: You/Your Family Experience fever (hyperthermia) with Anesthesia Last Oral Intake Last Oral intake: Last Oral Intake NPO since 0000 10/06/25 15:26 Meds taken in AM with sips of No 10/06/25 15:26 water? Meds patient instructed to take am of surgery PONV PONV - english language learner tutor: PONV - english language learner tutor Female HX of Motion Sickness HX of N/V After Surgery Non-Smoker Duration of Surgery greater than 60 minutes Number of Risk Factors PONV Score Height & Weight Height & Weight: Anesthesia: Height & Weight Height 5 ft 9 in 10/06/25 15:26 Weight: 85.3 kg 10/06/25 15:26 Body Mass Index (BMI) 27.7 10/06/25 15:26 Respiratory Assessment Respiratory Assessment - english language learner tutor: Respiratory Tract Infection Hx - english language learner tutor Hx Respiratory Tract Infection No 10/06/25 15:09 STOP Sleep Apnea STOP Sleep Apnea - english language learner tutor: STOP Sleep Apnea - english language learner tutor Hx Hypertension Yes 10/04/25 13:19 Hx Sleep Apnea No 10/03/25 17:49 CPAP BIPAP Do you snore loudly (louder No 10/03/25 17:49 than talking or can be heard Do you often feel tired/ No 10/03/25 17:49 fatigued/ sleepy during daytime? Has anyone observed you stop No 10/03/25 17:49 breathing during sleep? STOP Results Negative 10/03/25 17:49 QUESTION #5 FULL TEXT : Do you snore loudly (louder than talking or can be heard through closed doors)? 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 Specify any problems Hx of Preganancy in last 3 N/A 10/03/25 17:49 Months Nurse Filling Out Transfusion NBILANCIN 10/03/25 17:49 & Questions: Date: 10/03/25 10/03/25 17:49 Time: 17:54 10/03/25 17:49 Patient unable to answer at this time (ie. confused, unrespo /Reproduction History /Reproductive History - english language learner tutor: /Reproductive Hx- english language learner tutor Hx Now No 10/06/25 15:09 Gestational Age (in weeks): EDC: Hx Hx Para Hx Section SAB No 10/06/25 15:09 Does the father of the baby or his family experience fever w Father of the baby Malignant Hypertension history comment Active Medications Active Medications: Current Medications Generic Name Dose Route Start Last Admin Trade Name Freq PRN Reason Stop Dose Admin Acetaminophen 650 mg 10/03/25 17:37 10/05/25 22:12 Acetaminophen 325 Mg Tablet PO 650 mg Q6H PRN PRN Administration Pain 1-10 Or Fever >100.7 Albuterol/Ipratropium 3 ml 10/05/25 08:58 Ipratropium/Albuterol Sulfate 3 Ml Ampul.Neb INHALATION Q6H PRN PRN WHEEZING Artificial Tears 1 each 10/04/25 10:00 10/06/25 10:33 Carboxymethylcellulose Sodium Gel Dropperette EACH EYE 1 each DAILY [facility] Administration Aspirin 81 mg 10/04/25 08:00 10/05/25 10:43 Aspirin E.C. 81 Mg Tablet PO 81 mg On Hold: 10/06/25 07:33 BREAKFAST [place] Administration Atorvastatin Calcium 20 mg 10/03/25 22:00 10/05/25 22:13 Atorvastatin Calcium 20 Mg Tablet PO 20 mg QHS [facility] Administration Calamine/Phenol 1 applic 10/03/25 22:00 10/06/25 10:32 Menthol/Lanolin/Calamine/Znox 113 Gm Tube TOPICAL 1 applic BID [facility] Administration Protocol Carvedilol 3.125 mg 10/04/25 08:00 10/06/25 17:00 Carvedilol 3.125 Mg [facility]t [facility] Citalopram Hydrobromide 10 mg 10/04/25 10:00 10/06/25 09:50 Citalopram 10 Mg Tablet PO Not Given DAILY [facility] Clopidogrel Bisulfate 75 mg 10/04/25 10:00 10/05/25 10:45 Clopidogrel Bisulfate 75 Mg Tablet PO Not Given On Hold: 10/06/25 07:33 DAILY [facility] Donepezil HCl 10 mg 10/03/25 22:00 10/05/25 22:13 Donepezil Hcl 10 Mg Tablet PO 10 mg QHS [facility] Administration Famotidine 40 mg 10/04/25 10:00 10/06/25 09:51 Famotidine 20 Mg Tablet PO Not Given DAILY [facility] Ferrous Sulfate 325 mg 10/04/25 12:00 10/06/25 09:51 Ferrous Sulfate 325 Mg Tablet PO Not Given DAILY@1200 [facility] Fluticasone Propionate 1 spray 10/03/25 22:00 10/06/25 10:33 Fluticasone 0.05% 1 [place] Nasal.Sry NASAL 1 spray BID [facility] Administration Guaifenesin 600 mg 10/03/25 22:00 10/06/25 09:51 Guaifenesin 600 Mg Tablet PO Not Given BID [facility] Metronidazole 500 mg in 100 mls @ 100 mls/hr 10/03/25 18:00 10/06/25 12:46 Flagyl IV Infused Q6 [facility] Infusion Sodium Chloride 250 mls @ 15 mls/hr 10/03/25 17:59 IV .[id number] PRN Saline Flush Sodium Chloride 250 mls @ 15 mls/hr 10/03/25 17:59 IV .[id number] PRN Additional IVPB Infusion Pantoprazole Sodium 40 mg/ 100 mls @ 300 mls/hr 10/06/25 12:45 10/06/25 14:33 Sodium Chloride IV Infused Q12 [place] Infusion Lactated Ringer's 1,000 mls @ 15 mls/hr 10/06/25 17:15 10/06/25 17:17 IV 15 mls/hr .Q48H [place] Administration Losartan Potassium 25 mg 10/04/25 10:00 10/06/25 09:51 Losartan Potassium 25 Mg Tablet PO Not Given DAILY [facility] Protocol Nutritional Formula (Lactose Free) 120 ml 10/04/25 18:00 10/06/25 18:20 Ensure Plus High Protein 120 Ml Liquid PO Not Given 4X/DAY [place] Ondansetron HCl 4 mg 10/03/25 17:37 Ondansetron 4 Mg/2 Ml Vial IV Q8H PRN PRN NAUSEA/VOMITING Phenol/Menthol 5 spray 10/03/25 21:10 Phenol/Sodium Phenolate 180ml MUCOUS MEM Q2H PRN PRN sore throat/mouth Quetiapine Fumarate 25 mg 10/03/25 22:00 10/05/25 22:13 Quetiapine 25 Mg Tablet PO 25 mg QHS [place] Administration Protocol Senna/Docusate Sodium 2 tablet 10/03/25 17:37 Senna/Docusate Sodium 1 Tablet PO BID PRN CONSTIPATION Sodium Chloride 10 - 40 ml 10/03/25 17:59 10/06/25 11:47 0.9% Saline Lock 10 Ml Syringe IV 10 ml UD PRN Administration SALINE FLUSH Tamsulosin HCl 0.4 mg 10/03/25 22:00 10/05/25 22:12 Tamsulosin Hcl 0.4 Mg Capsule PO 0.4 mg QHS [place] Administration Vancomycin HCl 125 mg 10/03/25 17:37 10/06/25 17:00 Vancomycin 125 Mg/5 Ml Susp Po.Syringe PO Not Given Q6H [place] PFSH Medical History Anemia C. 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 History of aortic stenosis Vitamin D deficiency Allergic rhinitis BPH (benign prostatic hyperplasia) Hematuria Debility Aortic stenosis Bowel obstruction Mitral valve annular calcification Atrial fibrillation with rapid ventricular response Declining functional status Cognitive deficits Vitamin D deficiency Acute metabolic encephalopathy Acute kidney injury Prolonged QT interval Left bundle branch block Hyperlipidemia Essential (primary) hypertension Home Medications ?Medication ?Instructions ?Recorded ?Last Taken ?Type tamsulosin 0.4 mg capsule 0.4 mg PO QHS urine flow 08/20/19 Unknown History famotidine 40 mg tablet (Pepcid) 40 mg PO DAILY 08/10/20 Unknown History citalopram 10 mg tablet 10 mg PO DAILY 02/18/21 Unknown History donepezil 10 mg tablet 10 mg PO QHS 02/18/21 Unknown History quetiapine 25 mg tablet 25 mg PO QHS 02/18/21 Unknown History ascorbate calcium (vitamin C) 500 500 mg PO DAILY 01/13/22 Unknown History mg tablet carvedilol 3.125 mg tablet 3.125 mg PO BID #180 tabs 03/28/24 Unknown Rx vit C 250 mg-vit E 90 mg-zinc 40 1 tab PO BID 06/22/25 Unknown History mg-copper 1 [id number] capsule (PreserVision AREDS-2) albuterol sulfate 90 mcg/actuation 2 puff inhalation Q6H PRN 08/01/25 Unknown History aerosol inhaler shortness of breath or wheezing clopidogrel 75 mg tablet 75 mg PO DAILY #90 tabs 08/03/25 Unknown Rx aspirin 81 mg tablet,delayed 81 mg PO DAILY 09/19/25 Unknown History release (Adult Aspirin Regimen) atorvastatin 20 mg tablet (Lipitor) 20 mg PO QHS 09/19/25 Unknown History ferrous sulfate 325 mg (65 mg 325 mg PO DAILY 09/19/25 Unknown History iron) tablet (Feosol) fluticasone propionate 50 1 spray intranasal BID 09/19/25 Unknown History mcg/actuation nasal spray,suspension carboxymethylcellulose sodium 1 % 1 drp EACH EYE DAILY #0 ea 09/23/25 Unknown Rx eye gel in a dropperette (Refresh Celluvisc) ipratropium 0.5 mg-albuterol 3 mg 3 ml inhalation Q6H.RT PRN sob #0 09/23/25 Unknown Rx (2.5 mg base)/3 mL nebulization mL soln losartan 50 mg tablet 25 mg (1/2 x 50 mg) PO DAILY #90 09/23/25 Unknown Rx tabs Lactobacillus acidophilus 10 10,000 mmu cells PO BID 10/03/25 Unknown History billion cell capsule guaifenesin 1,200 mg tablet, 600 mg PO BID 10/03/25 Unknown History extended release 12 hr (Mucus Relief ER) sennosides 8.6 mg-docusate sodium 2 tab PO BID PRN constipation 10/03/25 Unknown History 50 mg tablet (Stimulant Laxative Plus) vancomycin 125 mg capsule 125 mg PO Q6H 10/03/25 Unknown History OXYGEN - Supplemental ([facility] hypoxia 10/04/25 Unknown History INFORMATIONAL USE ONLY) Allergy/AdvReac Type Severity Reaction Status Date / Time No Known Allergies Allergy Verified 10/03/25 14:11 Family History Father Cancer Lung cancer Sister Cancer Breast cancer Pancreas cancer Surgical History History of coronary artery bypass surgery (~07/04/19) History of aortic valve replacement with bioprosthetic valve (~07/04/19) History of right and left heart catheterization (03/02/19) S/P partial colectomy Umbilical hernia, incarcerated (12/04/18) Social History household members: none housing: half-way current occupational status: retired Smoking Status: Former smoker alcohol intake: never substance use type: does not use caffeine: Yes Type: carbonated beverages and coffee eating out: 1-3 times/week adán/scientology: [employer] seatbelt use: always do you feel safe at home: Yes Review of Systems (Anesthesia) ROS Narrative System reviewed and no additional complaints, except as documented.
--- NOTE | 2025-10-06 21:41 | OP.EGD_ITS ---
Patient Name: Lupillo Shah Procedure Date: 10/06/2025 9:07 PM Date of : 1940 Age: 85 Procedure: Upper GI endoscopy Indications: Acute post hemorrhagic anemia, Iron deficiency anemia Providers: Leonardo Zaldivar DO Medicines: Monitored Anesthesia Care Patient Profile: This is an 85 year old male. Refer to note in patient chart for documentation of history and physical. Complications: No immediate complications. Procedure: Pre-Anesthesia Assessment: - Prior to the procedure, a History and Physical was performed, and patient medications and allergies were reviewed. The patient is competent. The risks and benefits of the procedure and the sedation options and risks were discussed with the patient. All questions were answered and informed consent was obtained. Patient identification and proposed procedure were verified by the physician in the pre-procedure area. Mental Status Examination: alert and oriented. Airway Examination: normal oropharyngeal airway and neck mobility. Respiratory Examination: clear to auscultation. CV Examination: normal. Prophylactic Antibiotics: The patient does not require prophylactic antibiotics. Prior Anticoagulants: The patient has taken no anticoagulant or antiplatelet agents except for NSAID medication. ASA Grade Assessment: II - A patient with mild systemic disease. After reviewing the risks and benefits, the patient was deemed in satisfactory condition to undergo the procedure. The anesthesia plan was to use monitored anesthesia care (MAC). Immediately prior to administration of medications, the patient was re-assessed for adequacy to receive sedatives. The heart rate, respiratory rate, oxygen saturations, blood pressure, adequacy of pulmonary ventilation, and response to care were monitored throughout the procedure. The physical status of the patient was re-assessed after the procedure. After obtaining informed consent, the endoscope was passed under direct vision. Throughout the procedure, the patient's blood pressure, pulse, and oxygen saturations were monitored continuously. The Endoscope was introduced through the mouth, and advanced to the fourth part of the duodenum. Small bowel enteroscopy was deemed necessary. The upper GI endoscopy was accomplished without difficulty. The patient tolerated the procedure well. Scope In: 9:33:37 PM Scope Out: 9:37:29 PM Total Procedure Duration Time 0 hours 3 minutes 52 seconds Findings: The examined esophagus was normal. Three non-bleeding cratered gastric ulcers with a visible vessel were found in the gastric body. The largest lesion was 30 mm in largest dimension. Coagulation for hemostasis using heater probe was successful. Estimated blood loss was minimal. Few non-bleeding linear duodenal ulcers with no stigmata of bleeding were found in the duodenal bulb. Impression: - Normal esophagus. - Non-bleeding gastric ulcers with a visible vessel. Treated with a heater probe. - Non-bleeding duodenal ulcers with no stigmata of bleeding. - No specimens collected. Recommendation: - Full liquid diet. - Use Protonix (pantoprazole) 40 mg PO BID for 3 months. - Use sucralfate tablets 1 gram PO QID for 3 months. - Continue present medications. Procedure Code(s): --- Professional --- 14948, Small intestinal endoscopy, enteroscopy beyond second portion of duodenum, not including ileum; with control of bleeding (eg, injection, bipolar cautery, unipolar cautery, laser, heater probe, stapler, plasma fine arts teacher) CPT copyright 2021 [employer]. All rights reserved. The codes documented in this report are preliminary and upon cloth carrier review may be revised to meet current compliance requirements. Leonardo Zaldivar DO 10/06/2025 9:41:28 PM This report has been signed electronically. Number of Addenda: 0 Note Initiated On: 10/06/2025 9:07 PM
--- NOTE | 2025-10-06 21:42 | OP.PROVAT_ITS ---
10/06/2025 Husam Khan MD [address] [place] [address] Re : Upper GI endoscopy procedure for Lupillo Shah Dear Dr. Khan This procedure was performed on Monday, October 06, 2025. My impressions and recommendations are as follows: Impressions : - Normal esophagus. - Non-bleeding gastric ulcers with a visible vessel. Treated with a heater probe. - Non-bleeding duodenal ulcers with no stigmata of bleeding. - No specimens collected. Recommendations : - Full liquid diet. - Use Protonix (pantoprazole) 40 mg PO BID for 3 months. - Use sucralfate tablets 1 gram PO QID for 3 months. - Continue present medications. My findings are described in the full procedure note, which is enclosed. If I can be of further assistance, please feel free to contact me at . Sincerely, Leonardo Friend, 10/06/2025 9:41:28 PM This report has been signed electronically.
--- NOTE | 2025-10-06 21:42 | PCM.PN.BLA ---
Progress Note Follow-up in office: [4 weeks] Okay to restart [Aspirin\Plavix\Brilinta] on [10/23/2025] New GI related medications for discharge: [Carafate 1 g 3 times a day and Protonix 40 mg twice a day] Follow-up procedures needed: [EGD] Physical Exam Const alert, oriented x3, no apparent distress and healthy appearing General Appearance: cooperative GI normal to inspection, nondistended, normoactive bowel sounds, soft to palpation, non-tender and non-distended Percussion: normal to percussion Rectal Exam: deferred Assessment & Plan Assessment/Plan (1) Gastric ulcer: (2) GI bleed: PLAN: Patient underwent an upper endoscopy. He had multiple ulcers that were treated endoscopically. He should be on Carafate and Protonix as written and he needs follow-up endoscopy. I will give him IV iron tonight he should have 1 more dose IV iron tomorrow. Avoid iron is much as possible while patient has active C. difficile infection. Full liquid diet advance as tolerated. Visit Charges Inpatient E&M: 01689 Subs Hosp L3
--- NOTE | 2025-10-06 21:48 | PCM.POST.ANE ---
Anesthesia: Postop Eval I Current Vital Signs Temperature: 97 F Pulse Rate: 101 Blood Pressure: 91/59 Respiratory Rate: 16 Pulse Ox: 100 Oxygen Delivery Method: Nasal Cannula Oxygen Flow Rate (L/min): 2 Assessment Airway patent: Yes Spontaneous unlabored respirations: Yes Mental status: Awake and Calm nausea: No Vomiting: No Anesthesia Complication: No Fluid Hydration Crystalloid volume administer (ml): 100 Total IV fluid infused: 100 Progress Note Anesthesia document: Postop Eval 1 completed: Yes
[2025-10-06] MEDS: Sodium Ferric Gluconat/Sucrose 250 MG in 0.9% Normal Saline (250mL Bag) 250 ML 135 MG IV (23:03)
--- NOTE | 2025-10-06 23:05 | PCM.POSTANE2 ---
Anesthesia Postop Eval I Sum Postop Eval Completion status Anesthesia document: Postop Eval 1 completed: Yes Anesthesia Postop Eval I Summary Anesthesia Postop Eval I Summary: Anesthesia Postop Eval I: Assessment Summary Airway patent Yes 10/06/25 21:50 Spontaneous unlabored Yes 10/06/25 21:50 respirations Mental status Awake,Calm 10/06/25 21:50 nausea No 10/06/25 21:50 Vomiting No 10/06/25 21:50 Anesthesia Postop Eval I: Fluid Summary Crystalloid volume administer 100 10/06/25 21:50 (ml) Colloids volume administered ( ml) Blood Product volume administered (ml) Total IV fluid infused 100 10/06/25 21:50 Anesthesia Postop Eval I: Summary Notes Anesthesia Complication No 10/06/25 21:50 Anesthesia Complication Comment: Post-operative progress note Anesthesia: Postop Eval II Evaluation Mental status: Awake and Calm Pain Level: 0 nausea: No Vomiting: No Complications Anesthesia Complication: No
[2025-10-07] VITALS (8 sets, daily range): BP systolic 93–116; BP diastolic 53–68; PULSE 83–108; RESP 12–18; TEMP 35.9–36.6; O2SAT 93–99
[2025-10-07] MEDS: metroNIDAZOLE 500 MG/100 ML BAG 100 MG IV ×4 (01:35→17:14)
[2025-10-07 06:50] LABS: Anion Gap 12 (5-15); BUN 35 mg/dL (4-19); BUN/Creat Ratio 22.0 RATIO (10-20); Calcium,Total 7.8 mg/dL (7.6-11.0); Carbon Dioxide 8.2 mmol/L (21.0-32.0); Chloride 118 mmol/L (98-108); Estimated Creatinine Clearance 35.89 ml/min (50-250); Glucose 81 mg/dL (70-99); Potassium 4.4 mmol/L (3.3-5.1)
[2025-10-07] MEDS: Vancomycin 125 MG/5 ML Susp PO.SYRINGE PO ×3 (06:54→17:14)
[2025-10-07 07:11] LABS: Hematocrit 29.2 % (40-54); Hemoglobin 7.8 g/dL (13.0-16.5); Immature Granulocytes Count 0.410 X10^3/uL (0.0-0.0); Mean Corp Hgb Conc 26.7 g/dL (32-36); Mean Corpuscular Volume 88.2 fL (80-94); Mean Platelet Vol. 9.1 fl (6.2-12.0); NRBC Flagged by Analyzer 0.1 % (0-5); POSITIVE COUNT YES; POSITIVE MORPHOLOGY YES; RBC Distribution Width CV 20.1 % (11.6-14.6); RBC Distribution Width SD 62.5 fl (35.1-43.9); Red Blood Count 3.31 M/mm3 (4.6-6.2); White Blood Count 13.5 K/mm3 (4.4-11.0)
[2025-10-07 07:17] LABS: Differential Indicated SCAN CRITERIA MET
[2025-10-07 07:39] LABS: Anisocytosis 2+
--- NOTE | 2025-10-07 10:37 | PN_ITS ---
Subjective Subjective Patient seen and examined. He remains weak and lethargic. He is on 2L of oxygen. He is mildly tachycardic with HR of 102. Objective Data Objective Data Vital Signs: Vital Signs Temp Pulse Resp BP Pulse Ox O2 Del Method O2 Flow Rate 97.7 F L 102 H 12 103/53 L 98 Nasal Cannula 2 10/07/25 08:20 10/07/25 08:20 10/07/25 08:20 10/07/25 08:20 10/07/25 08:20 10/07/25 08:20 10/07/25 08:20 Oxygen Flow Rate (L/min) 2 Oxygen Delivery Method Nasal Cannula Weight: 188 lb 0.869 oz Body Mass Index (BMI) 27.7 Intake & Output: Intake and Output for Last 24 Hours 10/05/25 10/06/25 10/07/25 23:59 23:59 23:59 Intake Total 2640.00 / 2640.00 1100 / 1100 470 / 470 Output Total 950 / 950 680 / 680 Balance 1690.00 / 1690.00 420 / 420 470 / 470 Lab / Micro Data 10/07/25 06:50 10/07/25 05:23 Labs: Laboratory Results - last 24 hr 10/07/25 05:23: WBC Cancelled, Corrected WBC Cancelled, RBC Cancelled, Hgb Cancelled, Hct Cancelled, MCV Cancelled, MCH Cancelled, MCHC Cancelled, RDW Std Deviation Cancelled, RDW Coeff of Genesis Cancelled, Plt Count Cancelled, MPV Cancelled, Immature Gran % (Auto) Cancelled, Neut % (Auto) Cancelled, Lymph % (Auto) Cancelled, [place] % (Auto) Cancelled, Eos % (Auto) Cancelled, Baso % (Auto) Cancelled, Absolute Neuts (auto) Cancelled, Absolute Lymphs (auto) Cancelled, Total Counted Cancelled, Neutrophils % (Manual) Cancelled, Band Neutrophils % Cancelled, Lymphocytes % (Manual) Cancelled, Monocytes % (Manual) Cancelled, Eosinophils % (Manual) Cancelled, Basophils % (Manual) Cancelled, Metamyelocytes % Cancelled, Myelocytes % Cancelled, Promyelocytes % Cancelled, Blast Cells % Cancelled, Plasma Cell % (Manual) Cancelled, Other Cells % Cancelled, Nucleated RBC % Cancelled, Nucleated RBCs/100 WBC Cancelled, Differential Comment Cancelled, Diff Path Review Cancelled, Hypersegmented Neuts Cancelled, Atypical Lymphocytes Cancelled, Reactive Lymphocytes Cancelled, Smudge Cells Cancelled, Toxic Granulation Cancelled, Toxic Vacuolation Cancelled, Dohle Bodies Cancelled, Jeff Rods Cancelled, Platelet Estimate Cancelled, Plt Morphology Comment Cancelled, RBC Morphology Cancelled 10/07/25 05:23: RBC Morphology Cancelled, Polychromasia Cancelled, Hypochromasia Cancelled, Basophilic Stippling Cancelled, Anisocytosis Cancelled, Microcytosis Cancelled, Macrocytosis Cancelled, Spherocytes Cancelled, Sickle Cells Cancelled, Target Cells Cancelled, Tear Drop Cells Cancelled, Ovalocytes Cancelled, Stomatocytes Cancelled, [place] Bodies Cancelled, [place] Cells Cancelled, Bite Cells Cancelled, Crenated Cell Cancelled, Acanthocytes (Spur) Cancelled, Rouleaux Cancelled, Schistocytes Cancelled, Sodium 138, Potassium 4.4, Chloride 118 H, Carbon Dioxide 8.2 L*, Anion Gap 12, BUN 35 H, Creatinine 1.57 H, Estim Creat Clear Calc 35.89 L, Est GFR (MDRD) Non-Af 42 L, B UN/Creatinine Ratio 22.0 H, Glucose 81, Calcium 7.8 10/07/25 06:06: WBC Cancelled, Corrected WBC Cancelled, RBC Cancelled, Hgb Cancelled, Hct Cancelled, MCV Cancelled, MCH Cancelled, MCHC Cancelled, RDW Std Deviation Cancelled, RDW Coeff of Genesis Cancelled, Plt Count Cancelled, MPV Cancelled, Immature Gran % (Auto) Cancelled, Neut % (Auto) Cancelled, Lymph % (Auto) Cancelled, [place] % (Auto) Cancelled, Eos % (Auto) Cancelled, Baso % (Auto) Cancelled, Absolute Neuts (auto) Cancelled, Absolute Lymphs (auto) Cancelled, Total Counted Cancelled, Neutrophils % (Manual) Cancelled, Band Neutrophils % Cancelled, Lymphocytes % (Manual) Cancelled, Monocytes % (Manual) Cancelled, Eosinophils % (Manual) Cancelled, Basophils % (Manual) Cancelled, Metamyelocytes % Cancelled, Myelocytes % Cancelled, Promyelocytes % Cancelled, Blast Cells % Cancelled, Plasma Cell % (Manual) Cancelled, Other Cells % Cancelled, Nucleated RBC % Cancelled, Nucleated RBCs/100 WBC Cancelled, Differential Comment Cancelled, Diff Path Review Cancelled, Hypersegmented Neuts Cancelled, Atypical Lymphocytes Cancelled, Reactive Lymphocytes Cancelled, Smudge Cells Cancelled, Toxic Granulation Cancelled, Toxic Vacuolation Cancelled, Dohle Bodies Cancelled, Jeff Rods Cancelled, Platelet Estimate Cancelled, Plt Morphology Comment Cancelled, RBC Morphology Cancelled 10/07/25 06:06: RBC Morphology Cancelled, Polychromasia Cancelled, Hypochromasia Cancelled, Basophilic Stippling Cancelled, Anisocytosis Cancelled, Microcytosis Cancelled, Macrocytosis Cancelled, Spherocytes Cancelled, Sickle Cells Cancelled, Target Cells Cancelled, Tear Drop Cells Cancelled, Ovalocytes Cancelled, Stomatocytes Cancelled, [place] Bodies Cancelled, [place] Cells Cancelled, Bite Cells Cancelled, Crenated Cell Cancelled, Acanthocytes (Spur) Cancelled, Rouleaux Cancelled, Schistocytes Cancelled 10/07/25 06:50: WBC 13.5 H, RBC 3.31 L, Hgb 7.8 L, Hct 29.2 L, MCV 88.2, MCH 23.6 L, MCHC 26.7 L, RDW Std Deviation 62.5 H, RDW Coeff of Genesis 20.1 H, Plt Count , MPV 9.1, Immature Gran % (Auto) 3.000 H, Neut % (Auto) 70.4 H, Lymph % (Auto) 19.1, [place] % (Auto) 7.0, Eos % (Auto) 0.2, Baso % (Auto) 0.3, Absolute Neuts (auto) 9.5 H, Absolute Lymphs (auto) 2.57, Nucleated RBC % 0.1, Platelet Estimate ADEQUATE, Anisocytosis 2+ Micro: Microbiology 10/06/25 02:30 Stool Stool Occult Blood (RYLAN) - Final Occult Blood Positive 10/03/25 15:00 Urine, Random Urine Culture - Final Culture exhibits no growth. 10/03/25 14:30 Blood Culture (Wb) - Right Forearm Blood Culture - Preliminary No growth in 48 hours. 10/03/25 14:30 Blood Culture (Wb) - Right Forearm Blood Culture - Preliminary No growth in 48 hours. Physical Exam Const Constitutional Narrative: weak and frail. HEENT normocephalic, head/scalp atraumatic, hearing grossly normal bilaterally and moist oral mucous membranes Eyes PERRL, EOMs intact bilaterally and conjunctivae normal Neck supple, thyroid normal and no carotid bruits General: trachea midline Lymph Lymphatic: no lymphedema noted Resp Resp Narrative: mildly diminished breath sounds bibasally, no wheezes or crackles. Remains on 2L of oxygen by nasal cannula Auscultation: Negative for rales, rhonchi or wheezes Cardio regular rate, regular rhythm, S1 normal heart sound, S2 normal heart sound and no murmurs GI normal to inspection, nondistended, normoactive bowel sounds Extremity normal capillary refill, no clubbing, cyanosis or edema and no calf tenderness Extremity Narrative: General Extremity: no tenderness to palpation of joints or extremities Skin no rashes or lesions noted General Skin Exam: no breakdown Neuro Neuro Narrative: frail, weak Motor Exam: general weakness Psych Psych Narrative: patient frail, weak Mood & Affect: flat affect Assessment & Plan Assessment/Plan (1) C. difficile colitis: PLAN: Plan # Sepsis due to acute C diff colitis * Patient was diagnosed with C. difficile on 09/27/2023. Still having diarrhea. He was also hypotensive. * On oral vancomycin and IV Flagyl. Will continue antibiotics. * Hydrate aggressively with IV fluids for hypotension * WBC today is down to 13.5. #Hypotension: Likely hypovolemic due to diarrhea from C. difficile. Hold BP meds on hold. BP still running on the lower side of normal and is 103/53. #Non-anion gap metabolic acidosis: Bicarb is 15.6 and anion gap is 8. Likely due to diarrhea from C. difficile. Should improve as diarrhea resolves. #MAURO: Creatinine is 1. 4 6 today from 1.33 yesterday. Was 1.37 on admission. Baseline is around 0.9. Likely prerenal due to diarrhea. Should improve with hydration. #Acute on chronic anemia: * Hemoglobin is up to 7.8 today. Aspirin and Plavix held. * Stool for occult blood is positive. Iron panel showed Low iron levels with low TIBC and normal iron saturation and elevated ferritin indicating anemia of chronic disease.. Start on IV pantoprazole. * Gastroenterology on board; Had EGD which showed normal esophagus and nonbleeding gastric ulcers with a visible vessel and treated with a heater probe, nonbleeding duodenal ulcers with no stigmata of bleeding. #Non anion gap metabolic acidosis * bicarb is 8.2 today. Anion gap is 12. Cr is 1.57 * start on bicarb drip. Get stat ABG * #A-fib: Not anticoagulated likely due to high risk of falls. #History of bioprosthetic aortic valve: Stable #CAD: On aspirin and Plavix as well as statin. Aspirin and Plavix on hold due to acute on chronic anemia #Hyperlipidemia: On statin #Benign essential hypertension: Hold losartan on account of hypotension. #Left lower lung mass: Will need follow-up with pulmonology on outpatient basis for further workup. This was detected during patient's most recent admission in August 2025 and needs follow-up with pulmonology. #DVT prophylaxis: Lovenox discontinued. SCDs. CODE STATUS: Full code Charges/Coding Visit Charges Inpatient E&M: 86117 Subs Hosp L3
[2025-10-07 11:38] LABS: Allen Test Positive; Base Excess -11 mmol/L (-2 to +2); FI02 2.0; PO2 108 mmHG (75-100); SITE L Radial; SO2 97 % (94-98)
[2025-10-07] MEDS: Ensure Plus High Protein 120 ML LIQUID PO ×4 (11:38→20:20)
[2025-10-07] MEDS: 0.9% Saline Lock 10 ML Syringe IV (11:41)
[2025-10-07] MEDS: Carboxymethylcellulose sodium gel dropperette 1 EACH EACH EYE (11:41)
[2025-10-07] MEDS: Sodium Bicarbonate 50 MEQ in Dextrose 5%-Water (1000mL Bag) 1,000 ML 100 MEQ IV (11:42)
[2025-10-07] MEDS: Fluticasone 0.05% 1 SPRAY NASAL.SRY NASAL ×2 (11:49→20:21)
[2025-10-07 16:15] LABS: Anion Gap 10 (5-15); BUN 36 mg/dL (4-19); BUN/Creat Ratio 20.7 RATIO (10-20); Calcium,Total 8.0 mg/dL (7.6-11.0); Carbon Dioxide 16.2 mmol/L (21.0-32.0); Chloride 116 mmol/L (98-108); Estimated Creatinine Clearance 32.76 ml/min (50-250); Glucose 125 mg/dL (70-99); Potassium 4.0 mmol/L (3.3-5.1)
[2025-10-07 19:41] LABS: Reflex Lactate? Y
[2025-10-08] VITALS (12 sets, daily range): BP systolic 85–113; BP diastolic 46–84; PULSE 85–105; RESP 16–18; TEMP 36.1–36.7; O2SAT 94–99
[2025-10-08] MEDS: Vancomycin 125 MG/5 ML Susp PO.SYRINGE PO ×5 (00:06→23:20)
--- NOTE | 2025-10-08 00:10 | CON.PCM.RE_ITS ---
Assessment & Plan Assessment/Plan (1) Acute kidney injury: (2) Acute metabolic acidosis: PLAN: Plan Assessment/Plan: The patient is a 85-year-old male with past history of hypertension, cognitive impairment, CAD, atrial fibrillation, aortic stenosis status post aortic valve replacement, MGUS, BPH, GERD, anemia, and hyperlipidemia. Patient [facility] hospital from [facility] on [facility]/2025 because of altered mental status. Patient was recently diagnosed with C. difficile colitis and is being treated with oral vancomycin. Nephrology is asked to see the patient because of MAURO and acute metabolic acidosis. Acute kidney injury. Patient has no prior history of CKD. Serum creatinine was 0.99 mg/dL as recently as 09/23/2025. Serum creatinine did increase to 2.50 mg/dL on 09/29/2025. Patient presented to hospital on 10/03/2025 with serum creatinine of 1.37 mg/dL. Renal function initially improved, and serum creatinine decreased to 1.22 mg/dL on 10/04/2025. However, serum creatinine has increased to 1.33 mg/dL on 10/05/2025 and has increased further to 1.72 mg/dL on 10/07/2025. Serum creatinine has stabilized today at 1.79 mg/dL. MAURO is secondary to prerenal azotemia from volume depletion. This is likely related to GI fluid loss with diarrhea. Urine sodium is less than 20 mmol/L which is consistent with prerenal MAURO. However, there is some likelihood that prerenal MAURO could progress to ischemic ATN in this case. Agree with volume expansion with LR for today particularly since his oral intake has been unreliable and BP has been soft. He is still on clear liquid diet as well. Keep MAP above 65 mmHg. We will monitor volume status closely. Although patient has edema, oxygen saturation is still okay with 2 L nasal cannula. There is no need for kidney replacement therapy. Recheck renal function, volume status, acid-base and electrolytes again tomorrow. Acute metabolic acidosis. Serum bicarbonate level has been as low as 8.2 mmol/L on 10/07/2025. Lactic acid level is also high at 2.4 mmol/L. Acute metabolic acidosis is likely due to low tissue perfusion with volume depletion and sepsis. MAURO also contributes to acute metabolic acidosis. Will check urine anion gap. Serum bicarbonate level has improved to 17 mmol/L today on 10/08/2025. Continue current treatment of infection along with volume expansion. There is no need for sodium bicarbonate supplementation from nephrology standpoint. Recheck serum bicarbonate level again tomorrow. HPI Consult Data Date of Consult: 10/08/25 HPI Narrative Reason for Consultation: MAURO and acute metabolic acidosis HPI Narrative: The patient is a 85-year-old male with past history of hypertension, cognitive impairment, CAD, atrial fibrillation, aortic stenosis status post aortic valve replacement, MGUS, BPH, GERD, anemia, and hyperlipidemia. Patient presented to hospital from [facility] on 09/23/2025 because of altered mental status. Patient was recently diagnosed with C. difficile colitis and is being treated with oral vancomycin. Nephrology is asked to see the patient because of MAURO and acute metabolic acidosis. History is limited from the patient. He is slow to answer every questions. However, patient denies current chest pain or dyspnea. According to nursing staff, patient still has diarrhea. There has been no nausea or vomiting. [facility], [facility] Medical History (Updated 10/08/25 @ 00:[address] Loi Diaz MD) Acute kidney injury Anemia C. 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 History of aortic stenosis Vitamin D deficiency Allergic rhinitis BPH (benign prostatic hyperplasia) Hematuria Debility Aortic stenosis Bowel obstruction Mitral valve annular calcification Atrial fibrillation with rapid ventricular response Declining functional status Cognitive deficits Vitamin D deficiency Acute metabolic encephalopathy Prolonged QT interval Left bundle branch block Hyperlipidemia Essential (primary) hypertension Home Medications ?Medication ?Instructions ?Recorded ?Last Taken ?Type tamsulosin 0.4 mg capsule 0.4 mg PO QHS urine flow Unknown History famotidine 40 mg tablet (Pepcid) 40 mg PO DAILY Unknown History citalopram 10 mg tablet 10 mg PO DAILY 02/18/21 Unkn own History donepezil 10 mg tablet 10 mg PO QHS 02/18/21 Unknow n History quetiapine 25 mg tablet 25 mg PO QHS 02/18/21 Unknow n History ascorbate calcium (vitamin C) 500 500 mg PO DAILY 12/25 12/14 Unknown History mg tablet carvedilol 3.125 mg tablet 3.125 mg PO BID #180 tabs 0 03/28/24 Unknown Rx vit C 250 mg-vit E 90 mg-zinc 40 1 tab PO BID 06/22/25 Unknown History mg-copper 1 [id number] capsule (PreserVision AREDS-2) albuterol sulfate 90 mcg/actuation 2 puff inhalation Q 6H PRN 08/01/25 Unknown History aerosol inhaler shortness of breath or wheez ing clopidogrel 75 mg tablet 75 mg PO DAILY #90 tabs 07/24 12/17 Unknown Rx aspirin 81 mg tablet,delayed 81 mg PO DAILY 09/19/25 U nknown History release (Adult Aspirin Regimen) atorvastatin 20 mg tablet (Lipitor) 20 mg PO QHS 09/19 Unknown History ferrous sulfate 325 mg (65 mg 325 mg PO DAILY 09/19/25 Unknown History iron) tablet (Feosol) fluticasone propionate 50 1 spray intranasal BID 09/19 Unknown History mcg/actuation nasal spray,suspension carboxymethylcellulose sodium 1 % 1 drp EACH EYE DAILY #0 ea 09/23/25 Unknown Rx eye gel in a dropperette (Refresh Celluvisc) ipratropium 0.5 mg-albuterol 3 mg 3 ml inhalation Q6H. RT PRN sob #0 09/23/25 Unknown Rx (2.5 mg base)/3 mL nebulization mL soln losartan 50 mg tablet 25 mg (1/2 x 50 mg) PO DAILY #90 09/23/25 Unknown Rx tabs Lactobacillus acidophilus 10 10,000 mmu cells PO BID 1 12/03/24 Unknown History billion cell capsule guaifenesin 1,200 mg tablet, 600 mg PO BID 10/03/25 Un known History extended release 12 hr (Mucus Relief ER) sennosides 8.6 mg-docusate sodium 2 tab PO BID PRN con stipation 10/03/25 Unknown History 50 mg tablet (Stimulant Laxative Plus) vancomycin 125 mg capsule 125 mg PO Q6H 10/03/25 Unkno wn History OXYGEN - Supplemental ([facility] hypoxia 10/04/25 Unknown Hi story INFORMATIONAL USE ONLY) Allergy/AdvReac Type Severity Reaction Status Date / Time No Known Allergies Allergy Verified 10/03/25 14:11 Family History Father Cancer Lung cancer Sister Cancer Breast cancer Pancreas cancer Surgical History History of coronary artery bypass surgery (~07/04/19) History of aortic valve replacement with bioprosthetic valve (~07/04/19) History of right and left heart catheterization (03/02/19) S/P partial colectomy Umbilical hernia, incarcerated (12/04/18) Social History household members: none housing: longterm current occupational status: retired Smoking Status: Former smoker alcohol intake: never substance use type: does not use caffeine: Yes Type: carbonated beverages and coffee eating out: 1-3 times/week adán/yazidism: Congregational seatbelt use: always do you feel safe at home: Yes ROS ROS Narrative As per HPI, otherwise noncontributory. Physical Exam Narrative General: Alert and oriented x1, NAD. However, he is slow to answer questions. HEENT: Normocephalic, atraumatic. Mucous membrane moist without erythema. PERRLA, EOMI. Hearing is intact. Neck: Supple, no JVD. Trachea is midline. No thyromegaly or lymphadenopathy. Cardiovascular: Normal S1, S2. No rubs, murmurs, or gallops. Respiratory: Lungs are clear to auscultation anteriorly. No wheezing, rhonchi, or rales. Abdomen: Normal bowel sounds, soft, nontender, no guarding or rebound, no organomegaly. Extremities: 2+ lower extreme edema bilaterally. There is no clubbing or cyanosis Musculoskeletal: Full passive range of motion, no joint swelling. Psychiatric: Flat affect. Skin: Warm and dry, no rash. Neurologic: Cranial nerve II to XII are grossly intact. No focal neurologic deficits. Lab / Micro Data 10/08/25 03:59 10/08/25 03:59 Labs: Laboratory Results - last 24 hr 10/07/25 05:23: WBC Cancelled, Corrected WBC Cancelled, RBC Cancelled, Hgb Cancelled, Hct Cancelled, MCV Cancelled, MCH Cancelled, MCHC Cancelled, RDW Std Deviation Cancelled, RDW Coeff of Genesis Cancelled, Plt Count Cancelled, MPV Cancelled, Immature Gran % (Auto) Cancelled, Neut % (Auto) Cancelled, Lymph % (Auto) Cancelled, [place] % (Auto) Cancelled, Eos % (Auto) Cancelled, Baso % (Auto) Cancelled, Absolute Neuts (auto) Cancelled, Absolute Lymphs (auto) Cancelled, Total Counted Cancelled, Neutrophils % (Manual) Cancelled, Band Neutrophils % Cancelled, Lymphocytes % (Manual) Cancelled, Monocytes % (Manual) Cancelled, Eosinophils % (Manual) Cancelled, Basophils % (Manual) Cancelled, Metamyelocytes % Cancelled, Myelocytes % Cancelled, Promyelocytes % Cancelled, Blast Cells % Cancelled, Plasma Cell % (Manual) Cancelled, Other Cells % Cancelled, Nucleated RBC % Cancelled, Nucleated RBCs/100 WBC Cancelled, Differential Comment Cancelled, Diff Path Review Cancelled, Hypersegmented Neuts Cancelled, Atypical Lymphocytes Cancelled, Reactive Lymphocytes Cancelled, Smudge Cells Cancelled, Toxic Granulation Cancelled, Toxic Vacuolation Cancelled, Dohle Bodies Cancelled, Jeff Rods Cancelled, Platelet Estimate Cancelled, Plt Morphology Comment Cancelled, RBC Morphology Cancelled 10/07/25 05:23: RBC Morphology Cancelled, Polychromasia Cancelled, Hypochromasia Cancelled, Basophilic Stippling Cancelled, Anisocytosis Cancelled, Microcytosis Cancelled, Macrocytosis Cancelled, Spherocytes Cancelled, Sickle Cells Cancelled, Target Cells Cancelled, Tear Drop Cells Cancelled, Ovalocytes Cancelled, Stomatocytes Cancelled, [place] Bodies Cancelled, [place] Cells Cancelled, Bite Cells Cancelled, Crenated Cell Cancelled, Acanthocytes (Spur) Cancelled, Rouleaux Cancelled, Schistocytes Cancelled, Sodium 138, Potassium 4.4, Chloride 118 H, Carbon Dioxide 8.2 L*, Anion Gap 12, BUN 35 H, Creatinine 1.57 H, Estim Creat Clear Calc 35.89 L, Est GFR (MDRD) Non-Af 42 L, B UN/Creatinine Ratio 22.0 H, Glucose 81, Calcium 7.8 10/07/25 06:06: WBC Cancelled, Corrected WBC Cancelled, RBC Cancelled, Hgb Cancelled, Hct Cancelled, MCV Cancelled, MCH Cancelled, MCHC Cancelled, RDW Std Deviation Cancelled, RDW Coeff of Genesis Cancelled, Plt Count Cancelled, MPV Cancelled, Immature Gran % (Auto) Cancelled, Neut % (Auto) Cancelled, Lymph % (Auto) Cancelled, [place] % (Auto) Cancelled, Eos % (Auto) Cancelled, Baso % (Auto) Cancelled, Absolute Neuts (auto) Cancelled, Absolute Lymphs (auto) Cancelled, Total Counted Cancelled, Neutrophils % (Manual) Cancelled, Band Neutrophils % Cancelled, Lymphocytes % (Manual) Cancelled, Monocytes % (Manual) Cancelled, Eosinophils % (Manual) Cancelled, Basophils % (Manual) Cancelled, Metamyelocytes % Cancelled, Myelocytes % Cancelled, Promyelocytes % Cancelled, Blast Cells % Cancelled, Plasma Cell % (Manual) Cancelled, Other Cells % Cancelled, Nucleated RBC % Cancelled, Nucleated RBCs/100 WBC Cancelled, Differential Comment Cancelled, Diff Path Review Cancelled, Hypersegmented Neuts Cancelled, Atypical Lymphocytes Cancelled, Reactive Lymphocytes Cancelled, Smudge Cells Cancelled, Toxic Granulation Cancelled, Toxic Vacuolation Cancelled, Dohle Bodies Cancelled, Jeff Rods Cancelled, Platelet Estimate Cancelled, Plt Morphology Comment Cancelled, RBC Morphology Cancelled 10/07/25 06:06: RBC Morphology Cancelled, Polychromasia Cancelled, Hypochromasia Cancelled, Basophilic Stippling Cancelled, Anisocytosis Cancelled, Microcytosis Cancelled, Macrocytosis Cancelled, Spherocytes Cancelled, Sickle Cells Cancelled, Target Cells Cancelled, Tear Drop Cells Cancelled, Ovalocytes Cancelled, Stomatocytes Cancelled, [place] Bodies Cancelled, [place] Cells Cancelled, Bite Cells Cancelled, Crenated Cell Cancelled, Acanthocytes (Spur) Cancelled, Rouleaux Cancelled, Schistocytes Cancelled 10/07/25 06:50: WBC 13.5 H, RBC 3.31 L, Hgb 7.8 L, Hct 29.2 L, MCV 88.2, MCH 23.6 L, MCHC 26.7 L, RDW Std Deviation 62.5 H, RDW Coeff of Genesis 20.1 H, Plt Count , MPV 9.1, Immature Gran % (Auto) 3.000 H, Neut % (Auto) 70.4 H, Lymph % (Auto) 19.1, [place] % (Auto) 7.0, Eos % (Auto) 0.2, Baso % (Auto) 0.3, Absolute Neuts (auto) 9.5 H, Absolute Lymphs (auto) 2.57, Nucleated RBC % 0.1, Platelet Estimate ADEQUATE, Anisocytosis 2+ 10/07/25 15:31: Sodium 142, Potassium 4.0, Chloride 116 H, Carbon Dioxide 16.2 L , Anion Gap 10, BUN 36 H, Creatinine 1.72 H, Estim Creat Clear Calc 32.76 L, Est GFR (MDRD) Non-Af 38 L, BUN/Creatinine Ratio 20.7 H, Glucose 125 H, Lactic Acid 2.4 H*, Calcium 8.0 10/07/25 18:51: Ur Random Sodium < 20, Urine Creatinine 132.00, Urine Potassium 22.8, Urine Chloride 34 10/07/25 19:31: Lactic Acid 2.6 H* ABG Data ABG results: ABG 10/07/25 11:34 Specimen Type ART Sample Site L Radial pH 7.21 L Bicarbonate Actual 16.6 L Total CO2 18 Base Excess -11 L O2 Saturation 97 O2 % 2.0 ABG pCO2 41.5 ABG pO2 108 H [place] Test Positive O2 Delivery Device Cannula Vent Mode Not entered
[2025-10-08] MEDS: metroNIDAZOLE 500 MG/100 ML BAG 100 MG IV ×5 (00:17→23:18)
[2025-10-08] MEDS: Sodium Bicarbonate 50 MEQ in Dextrose 5%-Water (1000mL Bag) 1,000 ML 100 MEQ IV (02:03)
--- NOTE | 2025-10-08 04:17 | PCM.HOSP.N ---
Hospitalist Note Patient with SBP 80s, will give small IVF bolus and reassess.
[2025-10-08 04:46] LABS: Hematocrit 28.0 % (40-54); Hemoglobin 7.5 g/dL (13.0-16.5); Immature Granulocytes Count 0.520 X10^3/uL (0.0-0.0); Mean Corp Hgb Conc 26.8 g/dL (32-36); Mean Corpuscular Volume 88.6 fL (80-94); Mean Platelet Vol. 9.3 fl (6.2-12.0); NRBC Flagged by Analyzer 0.1 % (0-5); Platelet Count 207 K/mm3 (150-450); RBC Distribution Width CV 19.9 % (11.6-14.6); RBC Distribution Width SD 62.4 fl (35.1-43.9); Red Blood Count 3.16 M/mm3 (4.6-6.2); White Blood Count 14.9 K/mm3 (4.4-11.0)
[2025-10-08] MEDS: 0.9% Normal Saline (250mL Bag) 250 ML 999 ML IV (04:49)
[2025-10-08 05:52] LABS: Anion Gap 8 (5-15); BUN 36 mg/dL (4-19); BUN/Creat Ratio 19.8 RATIO (10-20); Calcium,Total 7.7 mg/dL (7.6-11.0); Carbon Dioxide 17.2 mmol/L (21.0-32.0); Chloride 113 mmol/L (98-108); Estimated Creatinine Clearance 31.48 ml/min (50-250); Glucose 179 mg/dL (70-99); Potassium 3.8 mmol/L (3.3-5.1)
[2025-10-08] MEDS: Lactated Ringers 1,000 ML 150 ML IV ×2 (08:11→14:44)
[2025-10-08] MEDS: Ensure Plus High Protein 120 ML LIQUID PO ×2 (08:49→14:39)
[2025-10-08] MEDS: Fluticasone 0.05% 1 SPRAY NASAL.SRY NASAL (08:49)
[2025-10-08] MEDS: Carboxymethylcellulose sodium gel dropperette 1 EACH EACH EYE (08:49)
--- NOTE | 2025-10-08 12:18 | PN_ITS ---
Subjective Subjective Patient seen and examined. He was more alert and communicative today. He had no active complaints. His diarrhea is improving. Review of systems otherwise negative. He has remained hypotensive so IV fluids started. Objective Data Objective Data Vital Signs: Vital Signs Temp Pulse Resp BP Pulse Ox O2 Del Method O2 Flow Rate 97.4 F L 101 H 16 113/67 94 Nasal Cannula 2 10/08/25 06:00 10/08/25 08:13 10/08/25 08:13 10/08/25 08:13 10/08/25 08:13 10/08/25 08:15 10/08/25 08:15 Oxygen Flow Rate (L/min) 2 Oxygen Delivery Method Nasal Cannula Weight: 188 lb 0.869 oz Body Mass Index (BMI) 27.7 Intake & Output: Intake and Output for Last 24 Hours 10/06/25 10/07/25 10/08/25 23:59 23:59 23:59 Intake Total 1100 / 1100 2002.84 / 2252.84 201832 / 2018.32 Output Total 680 / 680 400 / 520 270 / 270 Balance 420 / 420 1602.84 / 1732.84 1748.32 / 1748.32 Lab / Micro Data 10/08/25 03:59 10/08/25 03:59 Labs: Laboratory Results - last 24 hr 10/07/25 15:31: Sodium 142, Potassium 4.0, Chloride 116 H, Carbon Dioxide 16.2 L , Anion Gap 10, BUN 36 H, Creatinine 1.72 H, Estim Creat Clear Calc 32.76 L, Est GFR (MDRD) Non-Af 38 L, BUN/Creatinine Ratio 20.7 H, Glucose 125 H, Lactic Acid 2.4 H*, Calcium 8.0 10/07/25 18:51: Ur Random Sodium < 20, Urine Creatinine 132.00, Urine Potassium 22.8, Urine Chloride 34 10/07/25 19:31: Lactic Acid 2.6 H* 10/08/25 03:59: WBC 14.9 H, RBC 3.16 L, Hgb 7.5 L, Hct 28.0 L, MCV 88.6, MCH 23.7 L, MCHC 26.8 L, RDW Std Deviation 62.4 H, RDW Coeff of Genesis 19.9 H, Plt Count 207, MPV 9.3, Immature Gran % (Auto) 3.500 H, Neut % (Auto) 73.7 H, Lymph % (Auto) 14.1 L, Clarke % (Auto) 8.2, Eos % (Auto) 0.4, Baso % (Auto) 0.1, A bsolute Neuts (auto) 11.0 H, Absolute Lymphs (auto) 2.11, Nucleated RBC % 0.1, Sodium 138, Potassium 3.8, Chloride 113 H, Carbon Dioxide 17.2 L, Anion Gap 8, B UN 36 H, Creatinine 1.79 H, Estim Creat Clear Calc 31.48 L, Est GFR (MDRD) Non- Af 36 L, BUN/Creatinine Ratio 19.8, Glucose 179 H, Calcium 7.7 Micro: Microbiology 10/06/25 02:30 Stool Stool Occult Blood (RYLAN) - Final Occult Blood Positive 10/03/25 15:00 Urine, Random Urine Culture - Final Culture exhibits no growth. 10/03/25 14:30 Blood Culture (Wb) - Right Forearm Blood Culture - Preliminary No growth in 48 hours. 10/03/25 14:30 Blood Culture (Wb) - Right Forearm Blood Culture - Preliminary No growth in 48 hours. Physical Exam Const alert, oriented x3 and no apparent distress Constitutional Narrative: weak and frail. General Appearance: cooperative Orientation / Consciousness: awake HEENT normocephalic, head/scalp atraumatic, hearing grossly normal bilaterally and moist oral mucous membranes Eyes PERRL, EOMs intact bilaterally and conjunctivae normal Neck supple, no JVD and thyroid normal Lymph Lymphatic: no lymphedema noted Resp Resp Narrative: mildly diminished breath sounds bibasally, no wheezes or crackles. Remains on 2L of oxygen by nasal cannula Auscultation: Negative for rales, rhonchi or wheezes Cardio regular rate, regular rhythm, S1 normal heart sound, S2 normal heart sound and no murmurs GI normal to inspection, nondistended, normoactive bowel sounds, soft to palpation, non-tender and non-distended Extremity normal capillary refill, no clubbing, cyanosis or edema and no calf tenderness Extremity Narrative: General Extremity: no tenderness to palpation of joints or extremities Skin no rashes or lesions noted General Skin Exam: no breakdown Neuro CN's II-XII intact bilaterally, moves all extremities, no focal motor deficits and no sensory deficits noted Neuro Narrative: frail, weak Sensorium / Orientation: awake and alert Speech: speech normal Motor Exam: general weakness Psych thought process normal and cooperative Psych Narrative: patient frail, weak Mood & Affect: flat affect Assessment & Plan Assessment/Plan (1) C. difficile colitis: PLAN: Plan # Sepsis due to acute C diff colitis * Patient was diagnosed with C. difficile on 09/27/2023. Still having diarrhea. He was also hypotensive. * On oral vancomycin and IV Flagyl. Will continue antibiotics. * Hydrate aggressively with IV fluids for hypotension * WBC today is up to 14.9. * Will consult ID for further input. #Hypotension: Likely hypovolemic due to diarrhea from C. difficile. Hold BP meds on hold. BP still running low today so patient was started on IV fluids Ringer's lactate.. #Non-anion gap metabolic acidosis: * Bicarb is up to 17.2 today. Was started on bicarb infusion yesterday nephrology consulted. * Nephrology reviewed him and recommended discontinuing the bicarb drip. Anion gap today is 8. Will monitor. #MAURO: Creatinine is up to 1.7 . Was 1.72 yesterday. Being hydrated with IV fluids as stated. Nephrology on board. Baseline creatinine is around 0.9. Today from 1.33 yesterday. Was 1.37 on admission. Baseline is around 0.9. Likely prerenal due to diarrhea. Should improve with hydration. #Acute on chronic anemia: * Hemoglobin is up to 7.5 today. Aspirin and Plavix held. * Stool for occult blood is positive. Iron panel showed Low iron levels with low TIBC and normal iron saturation and elevated ferritin indicating anemia of chronic disease.. Start on IV pantoprazole. * Gastroenterology on board; Had EGD which showed normal esophagus and nonbleeding gastric ulcers with a visible vessel and treated with a heater probe, nonbleeding duodenal ulcers with no stigmata of bleeding. #A-fib: Not anticoagulated likely due to high risk of falls. #History of bioprosthetic aortic valve: Stable #CAD: On aspirin and Plavix as well as statin. Aspirin and Plavix on hold due to acute on chronic anemia #Hyperlipidemia: On statin #Benign essential hypertension: Hold losartan on account of hypotension. #Left lower lung mass: Will need follow-up with pulmonology on outpatient basis for further workup. This was detected during patient's most recent admission in August 2025 and needs follow-up with pulmonology. #DVT prophylaxis: Lovenox discontinued. SCDs. CODE STATUS: Full code Charges/Coding Visit Charges Inpatient E&M: 64885 Subs Hosp L2
[2025-10-08] MEDS: 0.9% Saline Lock 10 ML Syringe IV (12:30)
[2025-10-09] VITALS (12 sets, daily range): BP systolic 88–104; BP diastolic 49–75; PULSE 92–118; RESP 16–18; TEMP 35.9–36.8; O2SAT 94–100
--- NOTE | 2025-10-09 02:16 | PCM.HOSP.N ---
Hospitalist Note Patient with recurrent hypotensive episodes, notable 3rd spacing. Will administer IV albumin x 1 and also add midodrine. Ideally would like to avoid more IVFs.
[2025-10-09] MEDS: Albumin Human 25% (100 mL) 25 GM/100 ML BAG IV (02:53)
[2025-10-09] MEDS: Vancomycin 125 MG/5 ML Susp PO.SYRINGE PO ×4 (06:03→22:14)
[2025-10-09] MEDS: metroNIDAZOLE 500 MG/100 ML BAG 100 MG IV ×2 (06:04→13:09)
[2025-10-09 06:05] LABS: Hematocrit 24.8 % (40-54); Hemoglobin 6.7 g/dL (13.0-16.5); Mean Corp Hgb Conc 27.0 g/dL (32-36); Mean Corpuscular Volume 88.3 fL (80-94); Mean Platelet Vol. 8.9 fl (6.2-12.0); POSITIVE COUNT YES; POSITIVE MORPHOLOGY YES; Platelet Count 175 K/mm3 (150-450); RBC Distribution Width CV 20.0 % (11.6-14.6); RBC Distribution Width SD 62.6 fl (35.1-43.9); Red Blood Count 2.81 M/mm3 (4.6-6.2); White Blood Count 12.7 K/mm3 (4.4-11.0)
[2025-10-09 06:06] LABS: Differential Indicated MANUAL DIFF
[2025-10-09 06:33] LABS: Anion Gap 8 (5-15); BUN 33 mg/dL (4-19); BUN/Creat Ratio 18.9 RATIO (10-20); Calcium,Total 7.9 mg/dL (7.6-11.0); Carbon Dioxide 16.9 mmol/L (21.0-32.0); Chloride 115 mmol/L (98-108); Estimated Creatinine Clearance 32.38 ml/min (50-250); Glucose 76 mg/dL (70-99); Potassium 3.8 mmol/L (3.3-5.1)
[2025-10-09 06:39] LABS: Neutrophil-Segmented 85 % (47-70); Total Cells Counted 100 (MANUAL DIFF)
[2025-10-09 06:42] LABS: Basophilic Stippling 2+; Vacuolated Cells 1+
[2025-10-09 06:43] LABS: Anisocytosis 2+; Macrocytosis 1+; Microcytosis 1+; Polychromasia 1+
[2025-10-09] MEDS: Fluticasone 0.05% 1 SPRAY NASAL.SRY NASAL ×2 (07:56→22:21)
--- NOTE | 2025-10-09 08:33 | PN.HOSP_ITS ---
Reason for Visit Chief Complaint: Hypotension, mental status change Subjective Subjective Has been listless. Objective Data Objective Data Vital Signs: Vital Signs Temp Pulse Resp BP Pulse Ox O2 Del Method O2 Flow Rate 36.8 C 114 H 16 93/49 L 98 Nasal Cannula 2 10/09/25 07:52 10/09/25 07:52 10/09/25 07:52 10/09/25 07:52 10/09/25 07:52 10/09/25 07:52 10/09/25 07:52 Oxygen Flow Rate (L/min) 2 Oxygen Delivery Method Nasal Cannula Weight: 85.3 kg Body Mass Index (BMI) 27.7 Intake & Output: Intake and Output for Last 24 Hours 10/07/25 10/08/25 10/09/25 23:59 23:59 23:59 Intake Total 2002.84 / 2252.84 4620.82 / 4620.82 200 / 200 Output Total 400 / 520 620 / 620 100 / 100 Balance 1602.84 / 1732.84 4000.82 / 4000.82 100 / 100 Lab / Micro Data 10/09/25 05:48 10/09/25 05:48 Labs: Laboratory Results - last 24 hr 10/09/25 05:48: WBC 12.7 H, RBC 2.81 L, Hgb 6.7 L, Hct 24.8 L, MCV 88.3, MCH 23.8 L, MCHC 27.0 L, RDW Std Deviation 62.6 H, RDW Coeff of Genesis 20.0 H, Plt Count 175, MPV 8.9, Neut % (Auto) Not Reportable, Absolute Neuts (auto) 10.8 H, Absolute Lymphs (auto) 1.40, Total Counted 100, Neutrophils % (Manual) 85 H, L ymphocytes % (Manual) 11 L, Monocytes % (Manual) 3, Metamyelocytes % 1, Toxic Vacuolation 1+, Platelet Estimate ADEQUATE, Polychromasia 1+, Basophilic Stippling 2+, Anisocytosis 2+, Microcytosis 1+, Macrocytosis 1+, Ovalocytes 1+, Sodium 141, Potassium 3.8, Chloride 115 H, Carbon Dioxide 16.9 L, Anion Gap 8, B UN 33 H, Creatinine 1.74 H, Estim Creat Clear Calc 32.38 L, Est GFR (MDRD) Non- Af 37 L, BUN/Creatinine Ratio 18.9, Glucose 76, Calcium 7.9 10/09/25 07:01: Crossmatch See Detail Micro: Microbiology 10/03/25 14:30 Blood Culture (Wb) - Right Forearm Blood Culture - Final No growth in 5 days. 10/03/25 14:30 Blood Culture (Wb) - Right Forearm Blood Culture - Final No growth in 5 days. 10/06/25 02:30 Stool Stool Occult Blood (RYLAN) - Final Occult Blood Positive 10/03/25 15:00 Urine, Random Urine Culture - Final Culture exhibits no growth. Physical Exam Const alert and no apparent distress Constitutional Narrative: Weak voice. Appears generally ill. HEENT head/scalp atraumatic and moist oral mucous membranes Resp normal respiratory effort, no retractions, no use of accessory muscles and clear to auscultation bilaterally Cardio regular rate, regular rhythm, S1 normal heart sound and S2 normal heart sound GI normal to inspection, nondistended, normoactive bowel sounds, soft to palpation, non-tender and non-distended Extremity Extremity Narrative: Diffuse edema in upper and lower extremities Skin Skin Narrative: No rashes or sores Neuro Sensorium / Orientation: awake Assessment & Plan Assessment/Plan (1) C. difficile colitis: PLAN: Plan Sepsis due to acute C diff colitis * Patient was diagnosed with C. difficile on 09/27/2023. Still having diarrhea. He was also hypotensive. * On oral vancomycin and IV Flagyl. Will continue antibiotics. * Hydrate aggressively with IV fluids for hypotension * Still with leukocytosis, but down significantly from 30.4, trending down. * Will consult ID for further input. Non-anion gap metabolic acidosis: * Nephrology following * Completed bicarbonate gtt. MAURO: * Being hydrated with IV fluids as stated. Nephrology on board. Baseline creatinine is around 0.9. Today from 1.33 yesterday. Was 1.37 on admission. Baseline is around 0.9. Likely prerenal due to diarrhea. Should improve with hydration. Acute on chronic anemia: * Hg 6.7. Will transfuse 1 unit PUD: * Gastroenterology on board; Had EGD which showed normal esophagus and nonbleeding gastric ulcers with a visible vessel and treated with a heater probe, nonbleeding duodenal ulcers with no stigmata of bleeding. * on carafate and PPI. Hypotension: * 3rd spacing * on midodrine * received IV albumin Anasarca * 16 liters positive this admission. * will attempt diuresis as BP permits. Chronic medical conditions: * A-fib: Not anticoagulated likely due to high risk of falls. * History of bioprosthetic aortic valve: Stable * CAD: On aspirin and Plavix as well as statin. Aspirin and Plavix on hold due to acute on chronic anemia * Hyperlipidemia: On statin * Benign essential hypertension: Hold losartan on account of hypotension. 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 This was detected during patient's most recent admission in August 2025 and needs follow-up with pulmonology. DVT prophylaxis: Lovenox discontinued. SCDs. CODE STATUS: Full code Charges/Coding Visit Charges Inpatient E&M: 45879 Subs Hosp L3
--- NOTE | 2025-10-09 09:48 | CASEMGMT ---
[facility]. Geno Baptiste DC Planning Asst.
--- NOTE | 2025-10-09 10:02 | PN.RENAL_ITS ---
Subjective Subjective Resting in bed. No overnight events. Patient alert during conversation this morning. Objective Data Objective Data Vital Signs: Vital Signs Temp Pulse Resp BP Pulse Ox O2 Del Method O2 Flow Rate 98.2 F 114 H 16 93/49 L 98 Nasal Cannula 2 10/09/25 07:52 10/09/25 07:52 10/09/25 07:52 10/09/25 07:52 10/09/25 07:52 10/09/25 07:52 10/09/25 07:52 Oxygen Flow Rate (L/min) 2 Oxygen Delivery Method Nasal Cannula Weight: 85.3 kg Body Mass Index (BMI) 27.7 Intake & Output: Intake and Output for Last 24 Hours 10/07/25 10/08/25 10/09/25 23:59 23:59 23:59 Intake Total 2002.84 / 2252.84 4620.82 / 4620.82 200 / 200 Output Total 400 / 520 620 / 620 100 / 100 Balance 1602.84 / 1732.84 4000.82 / 4000.82 100 / 100 Lab / Micro Data 10/09/25 05:48 10/09/25 05:48 Labs: Laboratory Results - last 24 hr 10/09/25 05:48: WBC 12.7 H, RBC 2.81 L, Hgb 6.7 L, Hct 24.8 L, MCV 88.3, MCH 23.8 L, MCHC 27.0 L, RDW Std Deviation 62.6 H, RDW Coeff of Genesis 20.0 H, Plt Count 175, MPV 8.9, Neut % (Auto) Not Reportable, Absolute Neuts (auto) 10.8 H, Absolute Lymphs (auto) 1.40, Total Counted 100, Neutrophils % (Manual) 85 H, L ymphocytes % (Manual) 11 L, Monocytes % (Manual) 3, Metamyelocytes % 1, Toxic Vacuolation 1+, Platelet Estimate ADEQUATE, Polychromasia 1+, Basophilic Stippling 2+, Anisocytosis 2+, Microcytosis 1+, Macrocytosis 1+, Ovalocytes 1+, Sodium 141, Potassium 3.8, Chloride 115 H, Carbon Dioxide 16.9 L, Anion Gap 8, B UN 33 H, Creatinine 1.74 H, Estim Creat Clear Calc 32.38 L, Est GFR (MDRD) Non- Af 37 L, BUN/Creatinine Ratio 18.9, Glucose 76, Calcium 7.9 10/09/25 07:01: Blood Type O POSITIVE, Antibody Screen NEGATIVE, Crossmatch See Detail Micro: Microbiology 10/03/25 14:30 Blood Culture (Wb) - Right Forearm Blood Culture - Final No growth in 5 days. 10/03/25 14:30 Blood Culture (Wb) - Right Forearm Blood Culture - Final No growth in 5 days. 10/06/25 02:30 Stool Stool Occult Blood (RYLAN) - Final Occult Blood Positive 10/03/25 15:00 Urine, Random Urine Culture - Final Culture exhibits no growth. Physical Exam Narrative Alert and oriented, NAD. However, he is slow to answer questions. Normal S1, S2. No rubs, murmurs, or gallops. Lungs are clear to auscultation anteriorly. No wheezing, rhonchi, or rales. Abdomen: Normal bowel sounds, soft, nontender 2+ lower extremity edema bilaterally. There is no clubbing or cyanosis Farley with clear yellow urine in tubing and bag Assessment & Plan Assessment/Plan (1) Acute kidney injury: (2) Acute metabolic acidosis: PLAN: Plan Assessment/Plan: The patient is a 85-year-old male with past history of hypertension, cognitive impairment, CAD, atrial fibrillation, aortic stenosis status post aortic valve replacement, MGUS, BPH, GERD, anemia, and hyperlipidemia. Patient presented [facility] hospital from [facility]25 because of altered mental status. Patient was recently diagnosed with C. difficile colitis and is being treated with oral vancomycin. Nephrology is asked to see the patient because of MAURO and acute metabolic acidosis. - MAURO is secondary to prerenal azotemia from volume depletion. This is likely related to GI fluid loss with diarrhea. Baseline serum creatinine ~1 mg/dL. Urine sodium is less than 20 mmol/L which is consistent with prerenal MAURO. However, there is some likelihood that prerenal MAURO could progress to ischemic ATN in this case. Creatinine 2.5 on 09/29--> today SCr 1.74mg/dL. Potassium normal, bicarb 17, improved. Patient has good urine output. Patient was on LR but this was stopped with noted edema/3rd spacing fluid in his legs. Blood pressures stable on midodrine. Patient received albumin overnight. O2 requirement 2 L per nasal cannula. Assessment and plan reviewed with Dr. Tran. - Acute metabolic acidosis is likely due to low tissue perfusion with volume depletion and sepsis. MAURO also contributes to acute metabolic acidosis. Serum bicarbonate level has been as low as 8.2 mmol/L on 10/07/2025. Lactic acid level was 2.6 mmol/L. Bicarb 17 today. - C-diff infection on flagyl and oral vanco.
[2025-10-09] MEDS: Ensure Plus High Protein 120 ML LIQUID PO ×3 (10:33→17:55)
[2025-10-09] MEDS: Carboxymethylcellulose sodium gel dropperette 1 EACH EACH EYE (10:33)
--- NOTE | 2025-10-09 15:15 | PCM.CONS.GEN ---
Assessment & Plan Assessment/Plan (1) C. difficile colitis: PLAN: Recent course of abx. Will stop flagyl, continue po vanc for 10 days total. Will follow, thank you HPI Consult Data Date of Consult: 10/09/25 HPI Narrative Reason for Consultation: cdiff HPI Narrative: ELIAS JAQUEZ, is a 85 M with h/o cognitive impairment who presented from [facility] with altered mental status, diarrhea, abd pain. Recent admit 09/19 to 09/23 with sepsis, treated with ceftriaxone and azithro, sent out with cefdinir. Readmitted here, CT showed pancolitis, admitted on po vanc and iv flagyl. Feeling fine, denies abd pain or diarrhea.. Full ROS performed and neg except as noted above. [facility] Medical History Acute kidney injury Anemia C. 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 History of aortic stenosis Vitamin D deficiency Allergic rhinitis BPH (benign prostatic hyperplasia) Hematuria Debility Aortic stenosis Bowel obstruction Mitral valve annular calcification Atrial fibrillation with rapid ventricular response Declining functional status Cognitive deficits Vitamin D deficiency Acute metabolic encephalopathy Prolonged QT interval Left bundle branch block Hyperlipidemia Essential (primary) hypertension Home Medications ?Medication ?Instructions ?Recorded ?Last Taken ?Type tamsulosin 0.4 mg capsule 0.4 mg PO QHS urine flow 08/20/19 Unknown History famotidine 40 mg tablet (Pepcid) 40 mg PO DAILY 08/10/20 Unknown History citalopram 10 mg tablet 10 mg PO DAILY 02/18/21 Unknown History donepezil 10 mg tablet 10 mg PO QHS 02/18/21 Unknown History quetiapine 25 mg tablet 25 mg PO QHS 02/18/21 Unknown History ascorbate calcium (vitamin C) 500 500 mg PO DAILY 01/13/22 Unknown History mg tablet carvedilol 3.125 mg tablet 3.125 mg PO BID #180 tabs 03/28/24 Unknown Rx vit C 250 mg-vit E 90 mg-zinc 40 1 tab PO BID 06/22/25 Unknown History mg-copper 1 [id number] capsule (PreserVision AREDS-2) albuterol sulfate 90 mcg/actuation 2 puff inhalation Q6H PRN 08/01/25 Unknown History aerosol inhaler shortness of breath or wheezing clopidogrel 75 mg tablet 75 mg PO DAILY #90 tabs 08/03/25 Unknown Rx aspirin 81 mg tablet,delayed 81 mg PO DAILY 09/19/25 Unknown History release (Adult Aspirin Regimen) atorvastatin 20 mg tablet (Lipitor) 20 mg PO QHS 09/19/25 Unknown History ferrous sulfate 325 mg (65 mg 325 mg PO DAILY 09/19/25 Unknown History iron) tablet (Feosol) fluticasone propionate 50 1 spray intranasal BID 09/19/25 Unknown History mcg/actuation nasal spray,suspension carboxymethylcellulose sodium 1 % 1 drp EACH EYE DAILY #0 ea 09/23/25 Unknown Rx eye gel in a dropperette (Refresh Celluvisc) ipratropium 0.5 mg-albuterol 3 mg 3 ml inhalation Q6H.RT PRN sob #0 09/23/25 Unknown Rx (2.5 mg base)/3 mL nebulization mL soln losartan 50 mg tablet 25 mg (1/2 x 50 mg) PO DAILY #90 09/23/25 Unknown Rx tabs Lactobacillus acidophilus 10 10,000 mmu cells PO BID 10/03/25 Unknown History billion cell capsule guaifenesin 1,200 mg tablet, 600 mg PO BID 10/03/25 Unknown History extended release 12 hr (Mucus Relief ER) sennosides 8.6 mg-docusate sodium 2 tab PO BID PRN constipation 10/03/25 Unknown History 50 mg tablet (Stimulant Laxative Plus) vancomycin 125 mg capsule 125 mg PO Q6H 10/03/25 Unknown History OXYGEN - Supplemental ([facility] hypoxia 10/04/25 Unknown History INFORMATIONAL USE ONLY) Allergy/AdvReac Type Severity Reaction Status Date / Time No Known Allergies Allergy Verified 10/03/25 14:11 Family History Father Cancer Lung cancer Sister Cancer Breast cancer Pancreas cancer Surgical History History of coronary artery bypass surgery (~07/04/19) History of aortic valve replacement with bioprosthetic valve (~07/04/19) History of right and left heart catheterization (03/02/19) S/P partial colectomy Umbilical hernia, incarcerated (12/04/18) Social History household members: none housing: long term current occupational status: retired Smoking Status: Former smoker alcohol intake: never substance use type: does not use caffeine: Yes Type: carbonated beverages and coffee eating out: 1-3 times/week adán/amish: [employer] seatbelt use: always do you feel safe at home: Yes Physical Exam Const alert and no apparent distress General Appearance: cooperative HEENT normocephalic and head/scalp atraumatic Eyes PERRL and EOMs intact bilaterally Neck supple and No nodes Resp normal air movement and clear to auscultation bilaterally Cardio regular rate and regular rhythm GI soft to palpation, non-tender and non-distended Extremity General Extremity: Negative for edema Skin no rashes or lesions noted Neuro CN's II-XII intact bilaterally Lab / Micro Data Attestation: I reviewed the patient's lab results. 10/09/25 05:48 10/09/25 05:48 Labs: Laboratory Results - last 24 hr 10/09/25 05:48: WBC 12.7 H, RBC 2.81 L, Hgb 6.7 L, Hct 24.8 L, MCV 88.3, MCH 23.8 L, MCHC 27.0 L, RDW Std Deviation 62.6 H, RDW Coeff of Genesis 20.0 H, Plt Count 175, MPV 8.9, Neut % (Auto) Not Reportable, Absolute Neuts (auto) 10.8 H, Absolute Lymphs (auto) 1.40, Total Counted 100, Neutrophils % (Manual) 85 H, Lymphocytes % (Manual) 11 L, Monocytes % (Manual) 3, Metamyelocytes % 1, Toxic Vacuolation 1+, Platelet Estimate ADEQUATE, Polychromasia 1+, Basophilic Stippling 2+, Anisocytosis 2+, Microcytosis 1+, Macrocytosis 1+, Ovalocytes 1+, Sodium 141, Potassium 3.8, Chloride 115 H, Carbon Dioxide 16.9 L, Anion Gap 8, BUN 33 H, Creatinine 1.74 H, Estim Creat Clear Calc 32.38 L, Est GFR (MDRD) Non-Af 37 L, BUN/Creatinine Ratio 18.9, Glucose 76, Calcium 7.9 10/09/25 07:01: Blood Type O POSITIVE, Antibody Screen NEGATIVE, Crossmatch See Detail Micro: Microbiology 10/03/25 14:30 Blood Culture (Wb) - Right Forearm Blood Culture - Final No growth in 5 days. 10/03/25 14:30 Blood Culture (Wb) - Right Forearm Blood Culture - Final No growth in 5 days.
[2025-10-09 16:30] LABS: Hematocrit 29.4 % (40-54); Hemoglobin 8.4 g/dL (13.0-16.5)
[2025-10-10] VITALS (9 sets, daily range): BP systolic 90–142; BP diastolic 62–78; PULSE 60–102; RESP 14–16; TEMP 36.2–37; O2SAT 94–100
[2025-10-10 06:21] LABS: Hematocrit 28.9 % (40-54); Hemoglobin 8.1 g/dL (13.0-16.5); Mean Corp Hgb Conc 28.0 g/dL (32-36); Mean Corpuscular Volume 88.7 fL (80-94); Mean Platelet Vol. 9.1 fl (6.2-12.0); POSITIVE COUNT YES; POSITIVE MORPHOLOGY YES; Platelet Count 167 K/mm3 (150-450); RBC Distribution Width CV 20.0 % (11.6-14.6); RBC Distribution Width SD 61.1 fl (35.1-43.9); Red Blood Count 3.26 M/mm3 (4.6-6.2); White Blood Count 13.2 K/mm3 (4.4-11.0)
[2025-10-10 06:25] LABS: Differential Indicated MANUAL DIFF
[2025-10-10] MEDS: Vancomycin 125 MG/5 ML Susp PO.SYRINGE PO ×4 (06:44→22:52)
[2025-10-10 07:05] LABS: Hypochromasia 1+; Neutrophil-Band 1 % (0-5); Neutrophil-Segmented 73 % (47-70); Total Cells Counted 100 (MANUAL DIFF)
[2025-10-10 07:06] LABS: Red Cell Morphology N CYTIC NORMAL (NORM C&C)
[2025-10-10 07:27] LABS: Anion Gap 10 (5-15); BUN 32 mg/dL (4-19); BUN/Creat Ratio 18.1 RATIO (10-20); Calcium,Total 7.7 mg/dL (7.6-11.0); Carbon Dioxide 15.1 mmol/L (21.0-32.0); Chloride 114 mmol/L (98-108); Estimated Creatinine Clearance 31.48 ml/min (50-250); Glucose 72 mg/dL (70-99); Potassium 3.9 mmol/L (3.3-5.1)
--- NOTE | 2025-10-10 08:18 | PN.HOSP_ITS ---
Reason for Visit Chief Complaint: Hypotension, mental status change Subjective Subjective Still weak. Denies pain. Objective Data Objective Data Vital Signs: Vital Signs Temp Pulse Resp BP Pulse Ox O2 Del Method O2 Flow Rate 36.6 C 60 16 90/62 97 Nasal Cannula 2 10/10/25 02:36 10/10/25 02:36 10/10/25 02:36 10/10/25 02:36 10/10/25 02:36 10/10/25 02:36 10/10/25 02:36 Oxygen Flow Rate (L/min) 2 Oxygen Delivery Method Nasal Cannula Weight: 85.3 kg Body Mass Index (BMI) 27.7 Intake & Output: Intake and Output for Last 24 Hours 10/08/25 10/09/25 10/10/25 23:59 23:59 23:59 Intake Total 4620.82 / 4620.82 1400 / 1520 120 / 120 Output Total 620 / 620 400 / 1400 1250 / 1250 Balance 4000.82 / 4000.82 1000 / 120 -1130 / -1130 Lab / Micro Data 10/10/25 06:00 10/10/25 06:00 Labs: Laboratory Results - last 24 hr 10/09/25 07:01: Blood Type O POSITIVE, Antibody Screen NEGATIVE, Crossmatch See Detail 10/09/25 16:04: Hgb 8.4 L, Hct 29.4 L 10/10/25 06:00: WBC 13.2 H, RBC 3.26 L, Hgb 8.1 L, Hct 28.9 L, MCV 88.7, MCH 24.8 L, MCHC 28.0 L, RDW Std Deviation 61.1 H, RDW Coeff of Genesis 20.0 H, Plt Count 167, MPV 9.1, Neut % (Auto) Not Reportable, Absolute Neuts (auto) 9.8 H, Absolute Lymphs (auto) 2.64, Total Counted 100, Neutrophils % (Manual) 73 H, Band Neutrophils % 1, Lymphocytes % (Manual) 20, Monocytes % (Manual) 4, M etamyelocytes % 2 H, Platelet Estimate ADEQUATE, RBC Morphology N CYTIC, Hypochromasia 1+, Sodium 140, Potassium 3.9, Chloride 114 H, Carbon Dioxide 15.1 L, Anion Gap 10, BUN 32 H, Creatinine 1.79 H, Estim Creat Clear Calc 31.48 L, E st GFR (MDRD) Non-Af 36 L, BUN/Creatinine Ratio 18.1, Glucose 72, Calcium 7.7 Micro: Microbiology 10/03/25 14:30 Blood Culture (Wb) - Right Forearm Blood Culture - Final No growth in 5 days. 10/03/25 14:30 Blood Culture (Wb) - Right Forearm Blood Culture - Final No growth in 5 days. 10/06/25 02:30 Stool Stool Occult Blood (RYLAN) - Final Occult Blood Positive 10/03/25 15:00 Urine, Random Urine Culture - Final Culture exhibits no growth. Physical Exam Const alert and no apparent distress Constitutional Narrative: weak voice. HEENT head/scalp atraumatic and moist oral mucous membranes Resp normal respiratory effort, no retractions, no use of accessory muscles and clear to auscultation bilaterally Cardio regular rate, regular rhythm, S1 normal heart sound and S2 normal heart sound GI normal to inspection, nondistended, normoactive bowel sounds, soft to palpation, non-tender and non-distended Extremity General Extremity: edema bilateral lower extremity Details: moderate Neuro Sensorium / Orientation: awake Assessment & Plan Assessment/Plan (1) C. difficile colitis: PLAN: Plan Sepsis due to acute C diff colitis * Patient was diagnosed with C. difficile on 09/27/2023. Still having diarrhea. He was also hypotensive. * On oral vancomycin, continue vancomycin through the 21 for a 10-day course of abx. * Hydrate aggressively with IV fluids for hypotension * Still with leukocytosis, but down significantly from 30.4, trending down. * Will consult ID for further input. Non-anion gap metabolic acidosis: * Nephrology following * Completed bicarbonate gtt. MAURO: * Being hydrated with IV fluids as stated. Nephrology on board. Baseline creatinine is around 0.9. Today from 1.33 yesterday. Was 1.37 on admission. Baseline is around 0.9. Likely prerenal due to diarrhea. Should improve with hydration. Acute on chronic anemia: * Hg 6.7 on 10/09 and transfused 1 unit and improved to 8.4 * monitor PUD: * Gastroenterology on board; Had EGD which showed normal esophagus and nonbleeding gastric ulcers with a visible vessel and treated with a heater probe, nonbleeding duodenal ulcers with no stigmata of bleeding. * on carafate and PPI. Hypotension: * 3rd spacing * on midodrine * received a 1x dose of IV albumin Anasarca * 15 liters positive this admission. * continue furosemide Chronic medical conditions: * A-fib: Not anticoagulated likely due to high risk of falls. * History of bioprosthetic aortic valve: Stable * CAD: On aspirin and Plavix as well as statin. Aspirin and Plavix on hold due to acute on chronic anemia * Hyperlipidemia: On statin * Benign essential hypertension: Hold losartan on account of hypotension. 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 This was detected during patient's most recent admission in August 2025 and needs follow-up with pulmonology. DVT prophylaxis: Lovenox discontinued. SCDs. CODE STATUS: Full code Charges/Coding Visit Charges Inpatient E&M: 90417 Subs Hosp L2
[2025-10-10] MEDS: Carboxymethylcellulose sodium gel dropperette 1 EACH EACH EYE (09:30)
[2025-10-10] MEDS: Fluticasone 0.05% 1 SPRAY NASAL.SRY NASAL ×2 (09:34→22:51)
[2025-10-10] MEDS: 0.9% Saline Lock 10 ML Syringe IV ×2 (11:33→17:19)
[2025-10-11] VITALS (7 sets, daily range): BP systolic 100–124; BP diastolic 55–71; PULSE 92–102; RESP 16–18; TEMP 36.1–36.6; O2SAT 93–96
[2025-10-11 06:12] LABS: Hematocrit 32.2 % (40-54); Hemoglobin 9.4 g/dL (13.0-16.5); Immature Granulocytes Count 0.770 X10^3/uL (0.0-0.0); Mean Corp Hgb Conc 29.2 g/dL (32-36); Mean Corpuscular Volume 87.5 fL (80-94); Mean Platelet Vol. 9.1 fl (6.2-12.0); NRBC Flagged by Analyzer 0.3 % (0-5); POSITIVE COUNT YES; POSITIVE MORPHOLOGY YES; Platelet Count 178 K/mm3 (150-450); RBC Distribution Width CV 20.6 % (11.6-14.6); RBC Distribution Width SD 61.9 fl (35.1-43.9); Red Blood Count 3.68 M/mm3 (4.6-6.2); White Blood Count 11.8 K/mm3 (4.4-11.0)
[2025-10-11 06:24] LABS: Differential Indicated SCAN CRITERIA MET
[2025-10-11] MEDS: Vancomycin 125 MG/5 ML Susp PO.SYRINGE PO ×4 (06:24→22:11)
[2025-10-11 06:51] LABS: Anion Gap 10 (5-15); BUN 31 mg/dL (4-19); BUN/Creat Ratio 18.0 RATIO (10-20); Calcium,Total 7.4 mg/dL (7.6-11.0); Carbon Dioxide 15.5 mmol/L (21.0-32.0); Chloride 114 mmol/L (98-108); Estimated Creatinine Clearance 32.57 ml/min (50-250); Glucose 85 mg/dL (70-99); Potassium 3.5 mmol/L (3.3-5.1)
[2025-10-11 07:18] LABS: Neutrophil-Band 1 % (0-5); Neutrophil-Segmented 70 % (47-70); Total Cells Counted 100 (MANUAL DIFF)
[2025-10-11 07:23] LABS: Polychromasia 1+
[2025-10-11 07:27] LABS: Scan Smear per Review Criteria MANUAL DIFF
[2025-10-11] MEDS: Carboxymethylcellulose sodium gel dropperette 1 EACH EACH EYE (08:55)
[2025-10-11] MEDS: Fluticasone 0.05% 1 SPRAY NASAL.SRY NASAL ×2 (08:56→22:08)
--- NOTE | 2025-10-11 09:00 | PCM.PN.HOSP ---
Reason for Visit Chief Complaint: Hypotension, mental status change Subjective Subjective Feeling ok. Eating. Denies pain. Objective Data Objective Data Vital Signs: Vital Signs Temp Pulse Resp BP Pulse Ox O2 Del Method O2 Flow Rate 36.3 C L 100 18 107/56 L 96 Room Air 2 10/11/25 08:52 10/11/25 08:52 10/11/25 08:52 10/11/25 08:52 10/11/25 08:52 10/11/25 08:52 10/10/25 09:41 Oxygen Flow Rate (L/min) 2 Oxygen Delivery Method Room Air Weight: 85.3 kg Body Mass Index (BMI) 27.7 Intake & Output: Intake and Output for Last 24 Hours 10/09/25 10/10/25 10/11/25 23:59 23:59 23:59 Intake Total 1400 / 1520 420 / 420 Output Total 400 / 1400 2650 / 3450 1100 / 1100 Balance 1000 / 120 -2230 / -3030 -1100 / -1100 Lab / Micro Data 10/11/25 05:52 10/11/25 05:52 Labs: Laboratory Results - last 24 hr 10/11/25 05:52: WBC 11.8 H, RBC 3.68 L, Hgb 9.4 L, Hct 32.2 L, MCV 87.5, MCH 25.5 L, MCHC 29.2 L, RDW Std Deviation 61.9 H, RDW Coeff of Genesis 20.6 H, Plt Count 178, MPV 9.1, Immature Gran % (Auto) Not Reportable, Neut % (Auto) Not Reportable, Lymph % (Auto) Not Reportable, [place] % (Auto) Not Reportable, Eos % (Auto) Not Reportable, Baso % (Auto) Not Reportable, Absolute Neuts (auto) 8.4 H, Absolute Lymphs (auto) 2.36, Total Counted 100, Neutrophils % (Manual) 70, Band Neutrophils % 1, Lymphocytes % (Manual) 20, Monocytes % (Manual) 6, Eosinophils % (Manual) 1, Metamyelocytes % 2 H, Nucleated RBC % 0.3, Polychromasia 1+, Sodium 139, Potassium 3.5, Chloride 114 H, Carbon Dioxide 15.5 L, Anion Gap 10, BUN 31 H, Creatinine 1.73 H, Estim Creat Clear Calc 32.57 L, Est GFR (MDRD) Non-Af 38 L, BUN/Creatinine Ratio 18.0, Glucose 85, Calcium 7.4 L Micro: Microbiology 10/03/25 14:30 Blood Culture (Wb) - Right Forearm Blood Culture - Final No growth in 5 days. 10/03/25 14:30 Blood Culture (Wb) - Right Forearm Blood Culture - Final No growth in 5 days. 10/06/25 02:30 Stool Stool Occult Blood (RYLAN) - Final Occult Blood Positive 10/03/25 15:00 Urine, Random Urine Culture - Final Culture exhibits no growth. Physical Exam Const alert and no apparent distress Constitutional Narrative: more alert today. HEENT head/scalp atraumatic and moist oral mucous membranes Resp normal respiratory effort, no retractions, no use of accessory muscles and clear to auscultation bilaterally Cardio regular rate, regular rhythm, S1 normal heart sound and S2 normal heart sound GI normal to inspection, nondistended, normoactive bowel sounds, soft to palpation, non-tender and non-distended Extremity Extremity Narrative: decreased edema in LE, but still with 3+ edema. Assessment & Plan Assessment/Plan (1) C. difficile colitis: PLAN: Plan Sepsis due to acute C diff colitis Patient was diagnosed with C. difficile on 09/27/2023. Still having diarrhea. He was also hypotensive. On oral vancomycin, continue vancomycin through the 21 for a 10-day course of abx. (Metronidazole dc'd) Hydrate aggressively with IV fluids for hypotension Still with leukocytosis, but down significantly from 30.4, trending down. ID following. Non-anion gap metabolic acidosis: Nephrology following Completed bicarbonate gtt. add PO bicarb. MAURO: Resolved. Caution with diuresis. Acute on chronic anemia: Hg 6.7 on 10/09 and transfused 1 unit and improved to 8.4 monitor PUD: Gastroenterology on board; Had EGD which showed normal esophagus and nonbleeding gastric ulcers with a visible vessel and treated with a heater probe, nonbleeding duodenal ulcers with no stigmata of bleeding. on carafate and PPI. Hypotension: resolved on midodrine Anasarca 15 liters positive this admission. continue furosemide will change furosemide to tid starting 10/12 will give a dose of 60mg tonight in lieu of the 40mg. Chronic medical conditions: A-fib: Not anticoagulated likely due to high risk of falls. History of bioprosthetic aortic valve: Stable CAD: On aspirin and Plavix as well as statin. Aspirin and Plavix on hold due to acute on chronic anemia Hyperlipidemia: On statin Benign essential hypertension: Hold losartan on account of hypotension. Left lower lung mass: Will need follow-up with pulmonology on outpatient basis for further workup. This was detected during patient's most recent admission in August 2025 and needs follow-up with pulmonology. DVT prophylaxis: Lovenox discontinued. SCDs. CODE STATUS: Full code Plan to discharge to [facility] when medically stable. Charges/Coding Visit Charges Inpatient E&M: 51664 Subs Hosp L2
--- NOTE | 2025-10-11 09:36 | CASEMGMT ---
Discharge Planning Updates sent to [facility] via [employer]. Geno Baptiste DC Planning Asst
--- NOTE | 2025-10-11 11:34 | PCM.PN.REN ---
Subjective Subjective Resting in bed. No overnight events. Objective Data Objective Data Vital Signs: Vital Signs Temp Pulse Resp BP Pulse Ox O2 Del Method O2 Flow Rate 97.4 F L 100 18 107/56 L 96 Room Air 2 10/11/25 08:52 10/11/25 08:52 10/11/25 08:52 10/11/25 08:52 10/11/25 08:52 10/11/25 08:52 10/10/25 09:41 Oxygen Flow Rate (L/min) 2 Oxygen Delivery Method Room Air Weight: 85.3 kg Body Mass Index (BMI) 27.7 Intake & Output: Intake and Output for Last 24 Hours 10/09/25 10/10/25 10/11/25 23:59 23:59 23:59 Intake Total 1400 / 1520 420 / 420 Output Total 400 / 1400 2650 / 3450 1100 / 1100 Balance 1000 / 120 -2230 / -3030 -1100 / -1100 Lab / Micro Data 10/11/25 05:52 10/11/25 05:52 Labs: Laboratory Results - last 24 hr 10/11/25 05:52: WBC 11.8 H, RBC 3.68 L, Hgb 9.4 L, Hct 32.2 L, MCV 87.5, MCH 25.5 L, MCHC 29.2 L, RDW Std Deviation 61.9 H, RDW Coeff of Genesis 20.6 H, Plt Count 178, MPV 9.1, Immature Gran % (Auto) Not Reportable, Neut % (Auto) Not Reportable, Lymph % (Auto) Not Reportable, [place] % (Auto) Not Reportable, Eos % (Auto) Not Reportable, Baso % (Auto) Not Reportable, Absolute Neuts (auto) 8.4 H, Absolute Lymphs (auto) 2.36, Total Counted 100, Neutrophils % (Manual) 70, Band Neutrophils % 1, Lymphocytes % (Manual) 20, Monocytes % (Manual) 6, Eosinophils % (Manual) 1, Metamyelocytes % 2 H, Nucleated RBC % 0.3, Polychromasia 1+, Sodium 139, Potassium 3.5, Chloride 114 H, Carbon Dioxide 15.5 L, Anion Gap 10, BUN 31 H, Creatinine 1.73 H, Estim Creat Clear Calc 32.57 L, Est GFR (MDRD) Non-Af 38 L, BUN/Creatinine Ratio 18.0, Glucose 85, Calcium 7.4 L Micro: Microbiology 10/03/25 14:30 Blood Culture (Wb) - Right Forearm Blood Culture - Final No growth in 5 days. 10/03/25 14:30 Blood Culture (Wb) - Right Forearm Blood Culture - Final No growth in 5 days. 10/06/25 02:30 Stool Stool Occult Blood (RYLAN) - Final Occult Blood Positive 10/03/25 15:00 Urine, Random Urine Culture - Final Culture exhibits no growth. Physical Exam Narrative Alert and oriented, NAD. However, he is slow to answer questions. Normal S1, S2. No rubs, murmurs, or gallops. Lungs are clear to auscultation anteriorly. Normal bowel sounds, soft, nontender 2+ lower extremity edema bilaterally. Farley with clear yellow urine in tubing and bag Assessment & Plan Assessment/Plan (1) Acute kidney injury: (2) Acute metabolic acidosis: PLAN: Plan Assessment/Plan: The patient is a 85-year-old male with past history of hypertension, cognitive impairment, CAD, atrial fibrillation, aortic stenosis status post aortic valve replacement, MGUS, BPH, GERD, anemia, and hyperlipidemia. Patient presented to hospital from [facility] on 09/23/2025 because of altered mental status. Patient was recently diagnosed with C. difficile colitis and is being treated with oral vancomycin. Nephrology is asked to see the patient because of MAURO and acute metabolic acidosis. - MAURO is secondary to prerenal azotemia from volume depletion. This is likely related to GI fluid loss with diarrhea. Baseline serum creatinine ~1 mg/dL. Urine sodium is less than 20 mmol/L which is consistent with prerenal MAURO. However, there is some likelihood that prerenal MAURO could progress to ischemic ATN in this case. Creatinine 2.5 on 09/29--> today SCr 1.74mg/dL. Potassium normal, bicarb 17, improved. Patient has good urine output. Patient was on LR but this was stopped with noted edema/3rd spacing fluid in his legs. Blood pressures stable on midodrine. Patient received albumin overnight. O2 requirement 2 L per nasal cannula. - Acute metabolic acidosis is likely due to low tissue perfusion with volume depletion and sepsis. MAURO also contributes to acute metabolic acidosis. Serum bicarbonate level has been as low as 8.2 mmol/L on 10/07/2025. Lactic acid level was 2.6 mmol/L. Bicarb 17 today. - C-diff infection on flagyl and oral vanco. 10/11/2025; overall renal function has been remaining stable. On Lasix 40 mg IV twice daily, good urine output, 2.6L urine output yesterday. Creatinine 1.7 mg/dL over past few days. Blood pressure stable on midodrine. Will continue to follow. Assessment and plan reviewed Dr. Tran.
[2025-10-11] MEDS: Ensure Plus High Protein 120 ML LIQUID PO ×2 (12:16→16:51)
[2025-10-12 03:40] VITALS: BP 148/113; PULSE 109; RESP 18; TEMP 36.1; O2SAT 94
[2025-10-12 06:04] VITALS: BP 91/65
[2025-10-12] MEDS: Vancomycin 125 MG/5 ML Susp PO.SYRINGE PO ×4 (06:05→22:28)
[2025-10-12] MEDS: 0.9% Saline Lock 10 ML Syringe IV ×2 (06:11→14:58)
[2025-10-12 06:42] LABS: Hematocrit 34.1 % (40-54); Hemoglobin 9.7 g/dL (13.0-16.5); Mean Corp Hgb Conc 28.4 g/dL (32-36); Mean Corpuscular Volume 88.8 fL (80-94); Mean Platelet Vol. 9.2 fl (6.2-12.0); POSITIVE COUNT YES; POSITIVE MORPHOLOGY YES; Platelet Count 181 K/mm3 (150-450); RBC Distribution Width CV 21.8 % (11.6-14.6); RBC Distribution Width SD 65.4 fl (35.1-43.9); Red Blood Count 3.84 M/mm3 (4.6-6.2); White Blood Count 11.9 K/mm3 (4.4-11.0)
[2025-10-12 07:05] LABS: Anion Gap 11 (5-15); BUN 31 mg/dL (4-19); BUN/Creat Ratio 17.5 RATIO (10-20); Calcium,Total 7.9 mg/dL (7.6-11.0); Carbon Dioxide 18.1 mmol/L (21.0-32.0); Chloride 113 mmol/L (98-108); Estimated Creatinine Clearance 31.65 ml/min (50-250); Glucose 91 mg/dL (70-99); Potassium 3.3 mmol/L (3.3-5.1)
[2025-10-12 07:38] LABS: Neutrophil-Segmented 66 % (47-70); Nucleated Red Bld Cells,Manual 1 % (0-5); Total Cells Counted 100 (MANUAL DIFF)
[2025-10-12 07:39] LABS: Differential Indicated MANUAL DIFF
[2025-10-12 07:41] LABS: Anisocytosis 2+
[2025-10-12 07:42] LABS: Macrocytosis 1+; Microcytosis 1+; Polychromasia 1+
--- NOTE | 2025-10-12 07:50 | PN.HOSP_ITS ---
Reason for Visit Chief Complaint: Hypotension, mental status change Subjective Subjective Feeling better. Decreased edema. Objective Data Objective Data Vital Signs: Vital Signs Temp Pulse Resp BP Pulse Ox O2 Del Method O2 Flow Rate 36.1 C L 109 H 18 91/65 94 Room Air 2 10/12/25 03:40 10/12/25 03:40 10/12/25 03:40 10/12/25 06:04 10/12/25 03:40 10/12/25 03:40 10/10/25 09:41 Oxygen Flow Rate (L/min) 2 Oxygen Delivery Method Room Air Weight: 85.3 kg Body Mass Index (BMI) 27.7 Intake & Output: Intake and Output for Last 24 Hours 10/10/25 10/11/25 10/12/25 23:59 23:59 23:59 Intake Total 420 / 420 480 / 480 Output Total 2650 / 3450 1600 / 2950 1650 / 1650 Balance -2230 / -3030 -1120 / -2470 -1650 / -1650 Lab / Micro Data 10/12/25 06:19 10/12/25 06:19 Labs: Laboratory Results - last 24 hr 10/09/25 07:01: Crossmatch See Detail 10/12/25 06:19: WBC 11.9 H, RBC 3.84 L, Hgb 9.7 L, Hct 34.1 L, MCV 88.8, MCH 25.3 L, MCHC 28.4 L, RDW Std Deviation 65.4 H, RDW Coeff of Genesis 21.8 H, Plt Count 181, MPV 9.2, Immature Gran % (Auto) Not Reportable, Neut % (Auto) Not Reportable, Lymph % (Auto) Not Reportable, [place] % (Auto) Not Reportable, Eos % (Auto) Not Reportable, Baso % (Auto) Not Reportable, Absolute Neuts (auto) 7.9 H , Absolute Lymphs (auto) 1.79, Total Counted 100, Neutrophils % (Manual) 66, L ymphocytes % (Manual) 15 L, Monocytes % (Manual) 14 H, Metamyelocytes % 4 H, M yelocytes % 1 H, Nucleated RBC % Not Reportable, Nucleated RBCs/100 WBC 1, Diff Path Review May , Platelet Estimate ADEQUATE, Polychromasia 1+, Anisocytosis 2+, Microcytosis 1+, Macrocytosis 1+, Ovalocytes RARE, Sodium 142, Potassium 3.3, Chloride 113 H, Carbon Dioxide 18.1 L, Anion Gap 11, BUN 31 H, Creatinine 1.78 H, Estim Creat Clear Calc 31.65 L, Est GFR (MDRD) Non-Af 36 L, BUN/Creatinine Ratio 17.5, Glucose 91, Calcium 7.9 Micro: Microbiology 10/03/25 14:30 Blood Culture (Wb) - Right Forearm Blood Culture - Final No growth in 5 days. 10/03/25 14:30 Blood Culture (Wb) - Right Forearm Blood Culture - Final No growth in 5 days. 10/06/25 02:30 Stool Stool Occult Blood (RYLAN) - Final Occult Blood Positive 10/03/25 15:00 Urine, Random Urine Culture - Final Culture exhibits no growth. Physical Exam Const alert and no apparent distress Constitutional Narrative: more alert, more vibrant, voice stronger. Resp normal respiratory effort, no retractions, no use of accessory muscles and clear to auscultation bilaterally Cardio regular rate, regular rhythm, S1 normal heart sound and S2 normal heart sound GI normal to inspection, nondistended, normoactive bowel sounds, soft to palpation, non-tender and non-distended Extremity Extremity Narrative: pitting edema in LE, wrinkling of the skin on UE noted. Assessment & Plan Assessment/Plan (1) C. difficile colitis: PLAN: Plan Sepsis due to acute C diff colitis * Patient was diagnosed with C. difficile on 09/27/2023. Still having diarrhea. He was also hypotensive. * On oral vancomycin, continue vancomycin through the 21 for a 10-day course of abx. (Metronidazole dc'd) * Hydrate aggressively with IV fluids for hypotension * Still with leukocytosis, but down significantly from 30.4, trending down. * ID following. Non-anion gap metabolic acidosis: * Nephrology following * Completed bicarbonate gtt. * add PO bicarb. MAURO: * Resolved. * Caution with diuresis. Acute on chronic anemia: * Hg 6.7 on 10/09 and transfused 1 unit and improved to 8.4 * has remained stable. PUD: * Had EGD which showed normal esophagus and nonbleeding gastric ulcers with a visible vessel and treated with a heater probe, nonbleeding duodenal ulcers with no stigmata of bleeding. * on Carafate and PPI. Hypotension: * resolved * on midodrine Anasarca * 11 liters positive this admission. * continue IV furosemide with 40 TID. * Still edematous and would continue to benefit for ongoing diuresis. Chronic medical conditions: * A-fib: Not anticoagulated likely due to high risk of falls. * History of bioprosthetic aortic valve: Stable * CAD: On aspirin and Plavix as well as statin. Aspirin and Plavix on hold due to acute on chronic anemia * Hyperlipidemia: On statin * Benign essential hypertension: Hold losartan on account of hypotension. 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 This was detected during patient's most recent admission in August 2025 and needs follow-up with pulmonology. DVT prophylaxis: Lovenox discontinued. SCDs. CODE STATUS: Full code Plan to discharge to [facility] when medically stable. Hopefully in 1-2 more days. Charges/Coding Visit Charges Inpatient E&M: 51754 Subs Hosp L2
[2025-10-12 08:57] LABS: Scan Smear per Review Criteria MANUAL DIFF
[2025-10-12 09:40] VITALS: BP 106/75; PULSE 113; RESP 17; TEMP 36.4; O2SAT 92
[2025-10-12] MEDS: Carboxymethylcellulose sodium gel dropperette 1 EACH EACH EYE (09:56)
[2025-10-12] MEDS: Ensure Plus High Protein 120 ML LIQUID PO (09:57)
[2025-10-12] MEDS: Fluticasone 0.05% 1 SPRAY NASAL.SRY NASAL ×2 (09:57→22:23)
--- NOTE | 2025-10-12 10:24 | PN.RENAL_ITS ---
Subjective Subjective Sitting up in bed. No complaints. Objective Data Objective Data Vital Signs: Vital Signs Temp Pulse Resp BP Pulse Ox O2 Del Method O2 Flow Rate 97.6 F L 113 H 17 106/75 92 Room Air 2 10/12/25 09:40 10/12/25 09:40 10/12/25 09:40 10/12/25 09:40 10/12/25 09:40 10/12/25 09:40 10/10/25 09:41 Oxygen Flow Rate (L/min) 2 Oxygen Delivery Method Room Air Weight: 85.3 kg Body Mass Index (BMI) 27.7 Intake & Output: Intake and Output for Last 24 Hours 10/10/25 10/11/25 10/12/25 23:59 23:59 23:59 Intake Total 420 / 420 480 / 480 Output Total 2650 / 3450 1600 / 2950 1650 / 1650 Balance -2230 / -3030 -1120 / -2470 -1650 / -1650 Lab / Micro Data 10/12/25 06:19 10/12/25 06:19 Labs: Laboratory Results - last 24 hr 10/09/25 07:01: Crossmatch See Detail 10/12/25 06:19: WBC 11.9 H, RBC 3.84 L, Hgb 9.7 L, Hct 34.1 L, MCV 88.8, MCH 25.3 L, MCHC 28.4 L, RDW Std Deviation 65.4 H, RDW Coeff of Genesis 21.8 H, Plt Count 181, MPV 9.2, Immature Gran % (Auto) Not Reportable, Neut % (Auto) Not Reportable, Lymph % (Auto) Not Reportable, [place] % (Auto) Not Reportable, Eos % (Auto) Not Reportable, Baso % (Auto) Not Reportable, Absolute Neuts (auto) 7.9 H , Absolute Lymphs (auto) 1.79, Total Counted 100, Neutrophils % (Manual) 66, L ymphocytes % (Manual) 15 L, Monocytes % (Manual) 14 H, Metamyelocytes % 4 H, M yelocytes % 1 H, Nucleated RBC % Not Reportable, Nucleated RBCs/100 WBC 1, Diff Path Review May foll, Platelet Estimate ADEQUATE, Polychromasia 1+, Anisocytosis 2+, Microcytosis 1+, Macrocytosis 1+, Ovalocytes RARE, Sodium 142, Potassium 3.3, Chloride 113 H, Carbon Dioxide 18.1 L, Anion Gap 11, BUN 31 H, Creatinine 1.78 H, Estim Creat Clear Calc 31.65 L, Est GFR (MDRD) Non-Af 36 L, BUN/Creatinine Ratio 17.5, Glucose 91, Calcium 7.9 Micro: Microbiology 10/03/25 14:30 Blood Culture (Wb) - Right Forearm Blood Culture - Final No growth in 5 days. 10/03/25 14:30 Blood Culture (Wb) - Right Forearm Blood Culture - Final No growth in 5 days. 10/06/25 02:30 Stool Stool Occult Blood (RYLAN) - Final Occult Blood Positive 10/03/25 15:00 Urine, Random Urine Culture - Final Culture exhibits no growth. Physical Exam Narrative Alert and oriented, NAD. However, he is slow to answer questions. Normal S1, S2. No rubs, murmurs, or gallops. Lungs are clear to auscultation anteriorly. Normal bowel sounds, soft, nontender 1+ pitting edema to b/l arms improving, 2+ pitting LE edema improving. Farley with clear yellow urine in tubing and bag Assessment & Plan Assessment/Plan (1) Acute kidney injury: (2) Acute metabolic acidosis: PLAN: Plan Assessment/Plan: The patient is a 85-year-old male with past history of hypertension, cognitive impairment, CAD, atrial fibrillation, aortic stenosis status post aortic valve replacement, MGUS, BPH, GERD, anemia, and hyperlipidemia. Patient presented to hospital from [facility] on 09/23/2025 because of altered mental status. Patient was recently diagnosed with C. difficile colitis and is being treated with oral vancomycin. Nephrology is asked to see the patient because of MAURO and acute metabolic acidosis. - MAURO is secondary to prerenal azotemia from volume depletion. This is likely related to GI fluid loss with diarrhea. Baseline serum creatinine ~1 mg/dL. Urine sodium is less than 20 mmol/L which is consistent with prerenal MAURO. However, there is some likelihood that prerenal MAURO could progress to ischemic ATN in this case. Creatinine 2.5 on 09/29--> today SCr 1.74mg/dL. Potassium normal, bicarb 17, improved. Patient has good urine output. Patient was on LR but this was stopped with noted edema/3rd spacing fluid in his legs. Blood pressures stable on midodrine. Patient received albumin overnight. O2 requirement 2 L per nasal cannula. - Acute metabolic acidosis is likely due to low tissue perfusion with volume depletion and sepsis. MAURO also contributes to acute metabolic acidosis. Serum bicarbonate level has been as low as 8.2 mmol/L on 10/07/2025. Lactic acid level was 2.6 mmol/L. Bicarb 17 today. - C-diff infection on flagyl and oral vanco. 10/11/2025; overall renal function has been remaining stable. On Lasix 40 mg IV twice daily, good urine output, 2.6L urine output yesterday. Creatinine 1.7 mg/dL over past few days. Blood pressure stable on midodrine. Will continue to follow. Assessment and plan reviewed Dr. Tran. 10/12/2025; serum creatinine has remained at 1.7mg/dL for last week (peak creatinine was 2.5 on 09/29). Baseline SCr was ~1 to 1.3mg/dL since 2019. He is responding well to IV diuresis, dose increased. Edema is much improved again today. Urine output so far today 1.6 L, per cumulative I&O net +11 L but much improved. Bicarb improved with oral bicarbonate. No changes from nephrology standpoint. On oral Vanco for C. difficile. Blood pressures stable. Assessment and plan reviewed with Dr. Tran.
[2025-10-12 15:40] VITALS: BP 113/80; PULSE 111; RESP 16; TEMP 36.7; O2SAT 95
[2025-10-12 22:17] VITALS: BP 114/70; PULSE 96; RESP 18; TEMP 36.1; O2SAT 97
[2025-10-13] VITALS (8 sets, daily range): BP systolic 99–127; BP diastolic 65–81; PULSE 93–110; RESP 12–18; TEMP 36.1–36.9; O2SAT 94–98
[2025-10-13] MEDS: Vancomycin 125 MG/5 ML Susp PO.SYRINGE PO ×3 (05:24→16:45)
[2025-10-13] MEDS: 0.9% Saline Lock 10 ML Syringe IV ×2 (05:28→23:45)
[2025-10-13 07:35] LABS: Anion Gap 11 (5-15); BUN 31 mg/dL (4-19); BUN/Creat Ratio 17.5 RATIO (10-20); Calcium,Total 7.1 mg/dL (7.6-11.0); Carbon Dioxide 16.7 mmol/L (21.0-32.0); Chloride 115 mmol/L (98-108); Estimated Creatinine Clearance 32.01 ml/min (50-250); Glucose 85 mg/dL (70-99); Potassium 3.3 mmol/L (3.3-5.1)
[2025-10-13 07:42] LABS: Hematocrit 35.3 % (40-54); Hemoglobin 10.2 g/dL (13.0-16.5); Mean Corp Hgb Conc 28.9 g/dL (32-36); Mean Corpuscular Volume 85.9 fL (80-94); Mean Platelet Vol. 9.0 fl (6.2-12.0); POSITIVE COUNT YES; POSITIVE MORPHOLOGY YES; Platelet Count 202 K/mm3 (150-450); RBC Distribution Width CV 22.5 % (11.6-14.6); RBC Distribution Width SD 65.9 fl (35.1-43.9); Red Blood Count 4.11 M/mm3 (4.6-6.2); White Blood Count 11.6 K/mm3 (4.4-11.0)
[2025-10-13 07:51] LABS: Differential Indicated MANUAL DIFF
[2025-10-13 08:03] LABS: Magnesium 1.6 mg/dL (1.5-2.2)
--- NOTE | 2025-10-13 08:20 | PCM.PN.HOSP ---
Reason for Visit Chief Complaint: Hypotension, mental status change Subjective Subjective More listless. Objective Data Objective Data Vital Signs: Vital Signs Temp Pulse Resp BP Pulse Ox O2 Del Method O2 Flow Rate 36.1 C L 100 18 127/74 H 96 Room Air 2 10/13/25 03:34 10/13/25 03:34 10/13/25 03:34 10/13/25 03:34 10/13/25 03:34 10/13/25 03:34 10/10/25 09:41 Oxygen Flow Rate (L/min) 2 Oxygen Delivery Method Room Air Weight: 85.3 kg Body Mass Index (BMI) 27.7 Intake & Output: Intake and Output for Last 24 Hours 10/11/25 10/12/25 10/13/25 23:59 23:59 23:59 Intake Total 480 / 480 430 / 430 Output Total 1600 / 2950 2560 / 3760 1425 / 1425 Balance -1120 / -2470 -2130 / -3330 -1425 / -1425 Lab / Micro Data 10/13/25 07:23 10/13/25 06:22 Labs: Laboratory Results - last 24 hr 10/12/25 06:19: Diff Path Review Reviewed 10/13/25 06:22: Sodium 143, Potassium 3.3, Chloride 115 H, Carbon Dioxide 16.7 L, Anion Gap 11, BUN 31 H, Creatinine 1.76 H, Estim Creat Clear Calc 32.01 L, Est GFR (MDRD) Non-Af 37 L, BUN/Creatinine Ratio 17.5, Glucose 85, Calcium 7.1 L 10/13/25 07:23: WBC 11.6 H, RBC 4.11 L, Hgb 10.2 L, Hct 35.3 L, MCV 85.9, MCH 24.8 L, MCHC 28.9 L, RDW Std Deviation 65.9 H, RDW Coeff of Genesis 22.5 H, Plt Count 202, MPV 9.0, Neut % (Auto) Not Reportable, Magnesium 1.6 Micro: Microbiology 10/03/25 14:30 Blood Culture (Wb) - Right Forearm Blood Culture - Final No growth in 5 days. 10/03/25 14:30 Blood Culture (Wb) - Right Forearm Blood Culture - Final No growth in 5 days. 10/06/25 02:30 Stool Stool Occult Blood (RYLAN) - Final Occult Blood Positive 10/03/25 15:00 Urine, Random Urine Culture - Final Culture exhibits no growth. Physical Exam Const Constitutional Narrative: sleeping. awoke to voice. more listless. HEENT head/scalp atraumatic and moist oral mucous membranes Resp normal respiratory effort, no retractions, no use of accessory muscles and clear to auscultation bilaterally Cardio regular rate, regular rhythm, S1 normal heart sound and S2 normal heart sound GI normal to inspection, nondistended, normoactive bowel sounds, soft to palpation, non-tender and non-distended Extremity Extremity Narrative: 3+ edema in LE. Assessment & Plan Assessment/Plan (1) C. difficile colitis: PLAN: Plan Sepsis due to acute C diff colitis Patient was diagnosed with C. difficile on 09/27/2023. Still having diarrhea. He was also hypotensive. On oral vancomycin, continue vancomycin through the 21 for a 10-day course of abx. (Metronidazole dc'd) Hydrate aggressively with IV fluids for hypotension Still with leukocytosis, but down significantly from 30.4, trending down. ID following. Non-anion gap metabolic acidosis: Nephrology following Completed bicarbonate gtt. add PO bicarb. MAURO: Resolved. Caution with diuresis. Acute on chronic anemia: Hg 6.7 on 10/09 and transfused 1 unit and improved to 8.4 has remained stable. PUD: Had EGD which showed normal esophagus and nonbleeding gastric ulcers with a visible vessel and treated with a heater probe, nonbleeding duodenal ulcers with no stigmata of bleeding. on Carafate and PPI. Hypotension: resolved on midodrine Anasarca 9 liters positive this admission. continue IV furosemide with 40 TID. 10/13: Still edematous and would continue to benefit for ongoing diuresis. Chronic medical conditions: A-fib: Not anticoagulated likely due to high risk of falls. History of bioprosthetic aortic valve: Stable CAD: On aspirin and Plavix as well as statin. Aspirin and Plavix on hold due to acute on chronic anemia Hyperlipidemia: On statin Benign essential hypertension: Hold losartan on account of hypotension. Left lower lung mass: Will need follow-up with pulmonology on outpatient basis for further workup. This was detected during patient's most recent admission in August 2025 and needs follow-up with pulmonology. DVT prophylaxis: Lovenox discontinued. SCDs. CODE STATUS: Full code Plan to discharge to [facility] when medically stable. Pt lethargic. Unclear if this is temporary or portending something more serious. WIll continue to monitor. Charges/Coding Visit Charges Inpatient E&M: 70647 Subs Hosp L2
[2025-10-13 08:29] LABS: Nucleated Red Bld Cells,Manual 1 % (0-5); Total Cells Counted 100 (MANUAL DIFF)
[2025-10-13 08:30] LABS: Neutrophil-Segmented 64 % (47-70)
[2025-10-13 08:31] LABS: Anisocytosis 2+; Polychromasia 1+
[2025-10-13] MEDS: Potassium Chloride Oral Tablet 20 MEQ 40 MEQ PO (09:37)
[2025-10-13] MEDS: Carboxymethylcellulose sodium gel dropperette 1 EACH EACH EYE (09:41)
--- NOTE | 2025-10-13 10:54 | CASEMGMT ---
Discharge Planning Updates sent via [facility] to [facility] with note that pt could return today but more likely tomorrow. [place] and transport form is already on pts chart (RN CM asked to verify). Geno Baptiste DC Planning Asst.
--- NOTE | 2025-10-13 11:10 | PN.RENAL_ITS ---
Subjective Subjective No new events Objective Data Objective Data Vital Signs: Vital Signs Temp Pulse Resp BP Pulse Ox O2 Del Method O2 Flow Rate 97.7 F L 110 H 18 99/71 96 Room Air 2 10/13/25 09:30 10/13/25 11:06 10/13/25 09:30 10/13/25 11:06 10/13/25 11:06 10/13/25 11:06 10/10/25 09:41 Oxygen Flow Rate (L/min) 2 Oxygen Delivery Method Room Air Weight: 85.3 kg Body Mass Index (BMI) 27.7 Intake & Output: Intake and Output for Last 24 Hours 10/11/25 10/12/25 10/13/25 23:59 23:59 23:59 Intake Total 480 / 480 430 / 430 Output Total 1600 / 2950 2560 / 3760 1425 / 1425 Balance -1120 / -2470 -2130 / -3330 -1425 / -1425 Lab / Micro Data 10/13/25 07:23 10/13/25 06:22 Labs: Laboratory Results - last 24 hr 10/12/25 06:19: Diff Path Review Reviewed 10/13/25 06:22: Sodium 143, Potassium 3.3, Chloride 115 H, Carbon Dioxide 16.7 L , Anion Gap 11, BUN 31 H, Creatinine 1.76 H, Estim Creat Clear Calc 32.01 L, Est GFR (MDRD) Non-Af 37 L, BUN/Creatinine Ratio 17.5, Glucose 85, Calcium 7.1 L 10/13/25 07:23: WBC 11.6 H, RBC 4.11 L, Hgb 10.2 L, Hct 35.3 L, MCV 85.9, MCH 24.8 L, MCHC 28.9 L, RDW Std Deviation 65.9 H, RDW Coeff of Genesis 22.5 H, Plt Count 202, MPV 9.0, Neut % (Auto) Not Reportable, Absolute Neuts (auto) 7.4, Absolute Lymphs (auto) 3.25, Total Counted 100, Neutrophils % (Manual) 64, Lymphocytes % (Manual) 28, Monocytes % (Manual) 5, Metamyelocytes % 3 H, Nucleated RBCs/100 WBC 1, Polychromasia 1+, Anisocytosis 2+, Magnesium 1.6 Micro: Microbiology 10/03/25 14:30 Blood Culture (Wb) - Right Forearm Blood Culture - Final No growth in 5 days. 10/03/25 14:30 Blood Culture (Wb) - Right Forearm Blood Culture - Final No growth in 5 days. 10/06/25 02:30 Stool Stool Occult Blood (RYLAN) - Final Occult Blood Positive 10/03/25 15:00 Urine, Random Urine Culture - Final Culture exhibits no growth. Physical Exam Narrative Alert and oriented, NAD. However, he is slow to answer questions. Normal S1, S2. No rubs, murmurs, or gallops. Lungs are clear to auscultation anteriorly. Normal bowel sounds, soft, nontender 1+ pitting edema to b/l arms improving, 2+ pitting LE edema improving. Farley with clear yellow urine in tubing and bag Assessment & Plan Assessment/Plan (1) Acute kidney injury: (2) Acute metabolic acidosis: PLAN: Plan Assessment/Plan: The patient is a 85-year-old male with past history of hypertension, cognitive impairment, CAD, atrial fibrillation, aortic stenosis status post aortic valve replacement, MGUS, BPH, GERD, anemia, and hyperlipidemia. Patient presented to hospital from [facility] on 09/23/2025 because of altered mental status. Patient was recently diagnosed with C. difficile colitis and is being treated with oral vancomycin. Nephrology is asked to see the patient because of MAURO and acute metabolic acidosis. - MAURO is secondary to prerenal azotemia from volume depletion. This is likely related to GI fluid loss with diarrhea. Baseline serum creatinine ~1 mg/dL. Urine sodium is less than 20 mmol/L which is consistent with prerenal MAURO. However, there is some likelihood that prerenal MAURO could progress to ischemic ATN in this case. Creatinine 2.5 on 09/29--> today SCr 1.74mg/dL. 10/11/2025; overall renal function has been remaining stable. On Lasix 40 mg IV twice daily, good urine output, 2.6L urine output yesterday. Creatinine 1.7 mg/dL over past few days. Blood pressure stable on midodrine. Will continue to follow. Assessment and plan reviewed Dr. Tran. 10/12/2025; serum creatinine has remained at 1.7mg/dL for last week (peak creatinine was 2.5 on 09/29). Baseline SCr was ~1 to 1.3mg/dL since 2019. He is responding well to IV diuresis, dose increased. Edema is much improved again today. Urine output so far today 1.6 L, per cumulative I&O net +11 L but much improved. Bicarb improved with oral bicarbonate. No changes from nephrology standpoint. On oral Vanco for C. difficile. Blood pressures stable. Assessment and plan reviewed with Dr. Tran. 10/13. Creatinine remained stable. Responding well to Lasix, negative overnight. Continue same. Add metolazone if needed for diuresis. He has known history of IgM monoclonal gammopathy, follows with hematology here. Newly discovered lung mass.
[2025-10-13] MEDS: Fluticasone 0.05% 1 SPRAY NASAL.SRY NASAL (23:57)
[2025-10-14 03:00] VITALS: PULSE 94
[2025-10-14 05:48] LABS: Hematocrit 31.7 % (40-54); Hemoglobin 9.0 g/dL (13.0-16.5); Immature Granulocytes Count 0.430 X10^3/uL (0.0-0.0); Mean Corp Hgb Conc 28.4 g/dL (32-36); Mean Corpuscular Volume 88.5 fL (80-94); Mean Platelet Vol. 9.2 fl (6.2-12.0); NRBC Flagged by Analyzer 0.7 % (0-5); POSITIVE MORPHOLOGY YES; Platelet Count 177 K/mm3 (150-450); RBC Distribution Width CV 22.9 % (11.6-14.6); RBC Distribution Width SD 70.4 fl (35.1-43.9); Red Blood Count 3.58 M/mm3 (4.6-6.2); White Blood Count 12.1 K/mm3 (4.4-11.0)
[2025-10-14 05:54] LABS: Differential Indicated SCAN CRITERIA MET
[2025-10-14 06:00] VITALS: BP 104/64; PULSE 111; RESP 16; TEMP 36.6; O2SAT 97
[2025-10-14] MEDS: 0.9% Saline Lock 10 ML Syringe IV (06:06)
[2025-10-14 06:32] LABS: Anion Gap 12 (5-15); BUN 31 mg/dL (4-19); BUN/Creat Ratio 17.6 RATIO (10-20); Calcium,Total 7.6 mg/dL (7.6-11.0); Carbon Dioxide 18.2 mmol/L (21.0-32.0); Chloride 113 mmol/L (98-108); Estimated Creatinine Clearance 32.38 ml/min (50-250); Glucose 94 mg/dL (70-99); Potassium 3.2 mmol/L (3.3-5.1)
[2025-10-14 06:33] VITALS: O2SAT 97
--- NOTE | 2025-10-14 08:13 | PN.HOSP_ITS ---
Reason for Visit Chief Complaint: Hypotension, mental status change Subjective Subjective Eating some. Clearing abdominal pain. Objective Data Objective Data Vital Signs: Vital Signs Temp Pulse Resp BP Pulse Ox O2 Del Method O2 Flow Rate 36.6 C 111 H 16 104/64 97 Room Air 2 10/14/25 06:00 10/14/25 06:00 10/14/25 06:00 10/14/25 06:00 10/14/25 06:33 10/14/25 06:33 10/10/25 09:41 Oxygen Flow Rate (L/min) 2 Oxygen Delivery Method Room Air Weight: 85.3 kg Body Mass Index (BMI) 27.7 Intake & Output: Intake and Output for Last 24 Hours 10/12/25 10/13/25 10/14/25 23:59 23:59 23:59 Intake Total 430 / 430 560 / 560 150 / 150 Output Total 2560 / 3760 2325 / 2325 300 / 300 Balance -2130 / -3330 -1765 / -1765 -150 / -150 Lab / Micro Data 10/14/25 05:05 10/14/25 05:05 Labs: Laboratory Results - last 24 hr 10/13/25 07:23: Absolute Neuts (auto) 7.4, Absolute Lymphs (auto) 3.25, Total Counted 100, Neutrophils % (Manual) 64, Lymphocytes % (Manual) 28, Monocytes % (Manual) 5, Metamyelocytes % 3 H, Nucleated RBCs/100 WBC 1, Polychromasia 1+, Anisocytosis 2+ 10/14/25 05:05: WBC 12.1 H, RBC 3.58 L, Hgb 9.0 L, Hct 31.7 L, MCV 88.5, MCH 25.1 L, MCHC 28.4 L, RDW Std Deviation 70.4 H, RDW Coeff of Genesis 22.9 H, Plt Count 177, MPV 9.2, Immature Gran % (Auto) 3.500 H, Neut % (Auto) 64.4, Lymph % (Auto) 24.0, [place] % (Auto) 7.7, Eos % (Auto) 0.2, Baso % (Auto) 0.2, Absolute Neuts (auto) 7.8 H, Absolute Lymphs (auto) 2.91, Nucleated RBC % 0.7, Sodium 143, Potassium 3.2 L, Chloride 113 H, Carbon Dioxide 18.2 L, Anion Gap 12, BUN 31 H, Creatinine 1.74 H, Estim Creat Clear Calc 32.38 L, Est GFR (MDRD) Non-Af 37 L, BUN/Creatinine Ratio 17.6, Glucose 94, Calcium 7.6 Micro: Microbiology 10/03/25 14:30 Blood Culture (Wb) - Right Forearm Blood Culture - Final No growth in 5 days. 10/03/25 14:30 Blood Culture (Wb) - Right Forearm Blood Culture - Final No growth in 5 days. 10/06/25 02:30 Stool Stool Occult Blood (RYLAN) - Final Occult Blood Positive 10/03/25 15:00 Urine, Random Urine Culture - Final Culture exhibits no growth. Physical Exam Const Constitutional Narrative: More alert today but cantankerous. Afebrile. HEENT head/scalp atraumatic and moist oral mucous membranes Resp normal respiratory effort, no retractions, no use of accessory muscles and clear to auscultation bilaterally Cardio regular rate, regular rhythm, S1 normal heart sound and S2 normal heart sound GI normal to inspection, nondistended, normoactive bowel sounds, soft to palpation, non-tender, non-distended and hepatosplenomegaly Extremity normal to inspection and full ROM Extremity Narrative: Still with +3 edema and lower extremities and still edema in the upper extremities but overall improved. Neuro Sensorium / Orientation: awake and alert Assessment & Plan Assessment/Plan (1) C. difficile colitis: PLAN: Plan Sepsis due to acute C diff colitis * Patient was diagnosed with C. difficile on 09/27/2023. Still having diarrhea. He was also hypotensive. * On oral vancomycin, continue vancomycin through the 21 for a 10-day course of abx. (Metronidazole dc'd) * Hydrate aggressively with IV fluids for hypotension * Still with leukocytosis, but down significantly from 30.4, trending down. * ID following. Non-anion gap metabolic acidosis: * Nephrology following * Completed bicarbonate gtt. * add PO bicarb. MAURO: * Resolved. * Caution with diuresis. Acute on chronic anemia: * Hg 6.7 on 10/09 and transfused 1 unit and improved to 8.4 * has remained stable. PUD: * Had EGD which showed normal esophagus and nonbleeding gastric ulcers with a visible vessel and treated with a heater probe, nonbleeding duodenal ulcers with no stigmata of bleeding. * on Carafate and PPI. Hypotension: * resolved * on midodrine Anasarca * 9 liters positive this admission. * continue IV furosemide with 40 TID. * 10/13: Still edematous and would continue to benefit for ongoing diuresis. * Overall still edematous but will change his furosemide over to oral and plan on discharge. Chronic medical conditions: * A-fib: Not anticoagulated likely due to high risk of falls. * History of bioprosthetic aortic valve: Stable * CAD: On aspirin and Plavix as well as statin. Aspirin and Plavix on hold due to acute on chronic anemia * Hyperlipidemia: On statin * Benign essential hypertension: Hold losartan on account of hypotension. 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 This was detected during patient's most recent admission in August 2025 and needs follow-up with pulmonology. DVT prophylaxis: Lovenox discontinued. SCDs. CODE STATUS: Full code Plan to discharge to [facility] Charges/Coding Visit Charges Inpatient E&M: 01318 Subs Hosp L2
[2025-10-14 09:14] VITALS: BP 100/62; PULSE 109; RESP 14; TEMP 36.4; O2SAT 98
[2025-10-14] MEDS: Potassium Chloride Oral Tablet 20 MEQ 60 MEQ PO (09:17)
[2025-10-14] MEDS: Fluticasone 0.05% 1 SPRAY NASAL.SRY NASAL (09:19)
--- NOTE | 2025-10-14 13:14 | PCM.TXEXTCAR ---
Diet Diet Order/Speech Therapy: INPATIENT Hospital Diet / Speech Therapy Order(s) 10/06/25 21:42 Diet: Full Liquid Fluid restriction:: 1500 mL Diet Comments: fortified pudding with meals Speech Therapy Comments: Supervised feed, deliver tray to desk Advance to: Regular Routine Orders/Code Status Code Status: Full Code DC O2, CPAP, BIPAP needs Home O2 Discharge instructions: No Wound(s) left forearm: Wound Type: Skin Tear right upper arm: Wound Type: Abrasion Behind right ear: Wound Type: Abrasion Therapies Weight Bearing: Full weight bearing Physical Therapy: Eval and Treat Occupational Therapy: Eval and Treat Problem/Diagnosis (1) C. difficile colitis: Status: Acute Code(s): A04.72 - Enterocolitis due to Clostridium difficile, not specified as recurrent Plan Sepsis due to acute C diff colitis Patient was diagnosed with C. difficile on 09/27/2023. Still having diarrhea. He was also hypotensive. On oral vancomycin, continue vancomycin through the for a 10-day course of abx. (Metronidazole dc'd) Hydrate aggressively with IV fluids for hypotension Still with leukocytosis, but down significantly from 30.4, trending down. ID following. Non-anion gap metabolic acidosis: Nephrology following Completed bicarbonate gtt. add PO bicarb. MAURO: Resolved. Caution with diuresis. Acute on chronic anemia: Hg 6.7 on 10/09 and transfused 1 unit and improved to 8.4 has remained stable. PUD: Had EGD which showed normal esophagus and nonbleeding gastric ulcers with a visible vessel and treated with a heater probe, nonbleeding duodenal ulcers with no stigmata of bleeding. on Carafate and PPI. Hypotension: resolved on midodrine Anasarca 9 liters positive this admission. continue IV furosemide with 40 TID. 10/13: Still edematous and would continue to benefit for ongoing diuresis. Overall still edematous but will change his furosemide over to oral and plan on discharge. Chronic medical conditions: A-fib: Not anticoagulated likely due to high risk of falls. History of bioprosthetic aortic valve: Stable CAD: On aspirin and Plavix as well as statin. Aspirin and Plavix on hold due to acute on chronic anemia Hyperlipidemia: On statin Benign essential hypertension: Hold losartan on account of hypotension. Left lower lung mass: Will need follow-up with pulmonology on outpatient basis for further workup. This was detected during patient's most recent admission in August 2025 and needs follow-up with pulmonology. DVT prophylaxis: Lovenox discontinued. SCDs. CODE STATUS: Full code Plan to discharge to [facility] Allergies/Procedures Done in Hospital Allergies No Known Allergies Allergy (Verified 10/03/25 14:11) Type of Care/Length of Stay Estimated LOS: Convalescent Care Less Than 30 days Type of Care Needed: Skilled Rehab Potential: Fair Prognosis: Fair Additional Orders/Day of Discharge Day of Discharge: 10/14/25 Dietary and Speech Recommendations Dietitian Recommendations/Changes: Recommend advance diet as tolerated to regular with adjusted texture/consistency per [employer]. Will continue 120mL Ensure Plus High Protein 4x daily with medpass to provide supplemental energy. Will continue fortified pudding with meals for tolerance. Trend weight, highly suspect weight loss however fluid overloaded at this time; reassess for malnutrition as new weight available. Discharge Plan Admission Admit Date/Time: 10/03/25 17:00 Primary Reason for Your Visit: Cdiff colitis. Attending Provider: Channing Mcqueen Primary Care Provider: Husam Khan Chi Consulting Providers: Tito Lunsford; Allyn Tran; Alisha Gilbert; Hunter Archibald Discharge Orders/Prescriptions Prescriptions: New sucralfate 1 gram Tablet 1 g PO 0700,1100,1600 Qty: 360 0RF midodrine 5 mg Tablet 10 mg PO TIDCM Qty: 90 0RF pantoprazole 40 mg Tablet,Delayed Release (Dr/Ec) 40 mg PO BID Qty: 180 0RF Ensure Plus High Protein 0.08 gram-1.5 kcal/mL Liquid 120 ml PO 4X/DAY Qty: 0 0RF furosemide [Lasix] 40 mg tablet 40 mg PO BID Qty: 60 0RF Rx Instructions: 1 tablet twice daily for 1 week, then 1 tablet daily. Continued famotidine [Pepcid] 40 mg tablet 40 mg PO DAILY citalopram 10 mg tablet 10 mg PO DAILY Patient Comments: Take 1 Tablet orally once per Day for 30 Days donepezil 10 mg tablet 10 mg PO QHS Patient Comments: TAKE 1 TABLET BY MOUTH DAILY WITH SUPPER quetiapine 25 mg tablet 25 mg PO QHS ascorbate calcium (vitamin C) 500 mg tablet 500 mg PO DAILY PreserVision AREDS-2 250-90-40-1 mg capsule 1 tab PO BID tamsulosin 0.4 MG capsule 0.4 mg PO QHS aspirin [Adult Aspirin Regimen] 81 mg tablet,delayed release (DR/EC) 81 mg PO DAILY atorvastatin [Lipitor] 20 mg tablet 20 mg PO QHS ferrous sulfate [Feosol] 325 mg (65 mg iron) tablet 325 mg PO DAILY fluticasone propionate 50 mcg/actuation spray,suspension 1 spray INTRANASAL BID ipratropium-albuterol 0.5 mg-3 mg(2.5 mg base)/3 mL Solution For Nebulization 3 ml inhalation Q6H.RT PRN (Reason: sob) Qty: 0 0RF carboxymethylcellulose sodium [Refresh Celluvisc] 1 % Drop[place]rette,Gel 1 drp EACH EYE DAILY Qty: 0 0RF Lactobacillus acidophilus 10 billion cell capsule 10,000 mmu cells PO BID sennosides-docusate sodium [Stimulant Laxative Plus] 8.6-50 mg Tablet 2 tab PO BID PRN (Reason: constipation) guaifenesin [Mucus Relief ER] 1,200 mg Tablet Extended Release 12hr 600 mg PO BID albuterol sulfate 90 mcg/actuation HFA aerosol inhaler 2 puff INHALATION Q6H PRN (Reason: shortness of breath or wheezing) carvedilol 3.125 mg tablet 3.125 mg PO BID Qty: 180 3RF Rx Instructions: must administer with a meal/food clopidogrel 75 mg tablet 75 mg PO DAILY Qty: 90 4RF Discontinued losartan 50 mg tablet 25 mg PO DAILY Qty: 90 4RF vancomycin 125 mg capsule 125 mg PO Q6H OXYGEN - Supplemental ([facility] INFORMATIONAL USE ONLY) Patient Comments: pt states he uses oxgyen at home but doesnt know how much or who brings it Referrals / Follow Up: Husam Khan Chi, MD [Primary Care Provider, Geriatrics] - Within 2 Weeks Disposition Disposition (needs filled in before D/C Order can be placed): Retirement Facility
--- NOTE | 2025-10-14 13:27 | DS.PCM_ITS ---
Providers Date of Admission: 10/03/25 Primary Care Physician: Dr. Husam Khan MD Consultations 10/07/25 14:28 Consult: Nephrology Routine Consulting Provider: Allyn Tran Reason for Consult: non anion gap metabolic acidosis EMERGENT Consult: No Notified: Yes Date Notified: 10/07/25 Time Notified: 14:28 Method of Notification: Text 10/08/25 12:25 Consult: Infectious Disease Routine Consulting Provider: Hunter Archibald Reason for Consult: acute C diff colitis EMERGENT Consult: No Notified: Yes Date Notified: 10/08/25 Time Notified: 12:25 Method of Notification: Text Reason For Visit: SEVERE SEPSIS, C. DIFFICILE COLITIS Diagnosis Discharge Diagnosis (1) C. difficile colitis: Status: Acute Code(s): A04.72 - Enterocolitis due to Clostridium difficile, not specified as recurrent Plan Sepsis due to acute C diff colitis * Patient was diagnosed with C. difficile on 09/27/2023. Still having diarrhea. He was also hypotensive. * On oral vancomycin, continue vancomycin through the for a 10-day course of abx. (Metronidazole dc'd) * Hydrate aggressively with IV fluids for hypotension * Still with leukocytosis, but down significantly from 30.4, trending down. * ID following. Non-anion gap metabolic acidosis: * Nephrology following * Completed bicarbonate gtt. * add PO bicarb. MAURO: * Resolved. * Caution with diuresis. Acute on chronic anemia: * Hg 6.7 on 10/09 and transfused 1 unit and improved to 8.4 * has remained stable. PUD: * Had EGD which showed normal esophagus and nonbleeding gastric ulcers with a visible vessel and treated with a heater probe, nonbleeding duodenal ulcers with no stigmata of bleeding. * on Carafate and PPI. Hypotension: * resolved * on midodrine Anasarca * 9 liters positive this admission. * continue IV furosemide with 40 TID. * 10/13: Still edematous and would continue to benefit for ongoing diuresis. * Overall still edematous but will change his furosemide over to oral and plan on discharge. Chronic medical conditions: * A-fib: Not anticoagulated likely due to high risk of falls. * History of bioprosthetic aortic valve: Stable * CAD: On aspirin and Plavix as well as statin. Aspirin and Plavix on hold due to acute on chronic anemia * Hyperlipidemia: On statin * Benign essential hypertension: Hold losartan on account of hypotension. 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 This was detected during patient's most recent admission in August 2025 and needs follow-up with pulmonology. DVT prophylaxis: Lovenox discontinued. SCDs. CODE STATUS: Full code Plan to discharge to [facility] Medications at Discharge Home Medications tamsulosin 0.4 mg capsule 0.4 mg PO QHS urine flow 08/20/19 famotidine 40 mg tablet (Pepcid) 40 mg PO DAILY 08/10/20 citalopram 10 mg tablet 10 mg PO DAILY 02/18/21 donepezil 10 mg tablet 10 mg PO QHS 02/18/21 quetiapine 25 mg tablet 25 mg PO QHS 02/18/21 ascorbate calcium (vitamin C) 500 mg tablet 500 mg PO DAILY 01/13/22 carvedilol 3.125 mg tablet 3.125 mg PO BID #180 tabs 03/28/24 vit C 250 mg-vit E 90 mg-zinc 40 mg-copper 1 rw-doeuan-cdutqf capsule (PreserVision AREDS-2) 1 tab PO BID 06/22/25 albuterol sulfate 90 mcg/actuation aerosol inhaler 2 puff inhalation Q6H PRN shortness of breath or wheezing 08/01/25 clopidogrel 75 mg tablet 75 mg PO DAILY #90 tabs 08/03/25 aspirin 81 mg tablet,delayed release (Adult Aspirin Regimen) 81 mg PO DAILY 09/19/25 atorvastatin 20 mg tablet (Lipitor) 20 mg PO QHS 09/19/25 ferrous sulfate 325 mg (65 mg iron) tablet (Feosol) 325 mg PO DAILY 09/19/25 fluticasone propionate 50 mcg/actuation nasal spray,suspension 1 spray intranasal BID 09/19/25 carboxymethylcellulose sodium 1 % eye gel in a dropperette (Refresh Celluvisc) 1 drp EACH EYE DAILY #0 ea 09/23/25 ipratropium 0.5 mg-albuterol 3 mg (2.5 mg base)/3 mL nebulization soln 3 ml inhalation Q6H.RT PRN sob #0 mL 09/23/25 Lactobacillus acidophilus 10 billion cell capsule 10,000 mmu cells PO BID 10/03/25 guaifenesin 1,200 mg tablet, extended release 12 hr (Mucus Relief ER) 600 mg PO BID 10/03/25 sennosides 8.6 mg-docusate sodium 50 mg tablet (Stimulant Laxative Plus) 2 tab PO BID PRN constipation 10/03/25 food supplemt, lactose-reduced 0.08 gram-1.5 kcal/mL oral liquid (Ensure Plus High Protein) 120 ml PO 4X/DAY #0 mL 10/14/25 furosemide 40 mg tablet (Lasix) 40 mg PO BID #60 tabs 10/14/25 midodrine 5 mg tablet 10 mg (2 x 5 mg) PO TIDCM #90 tabs 10/14/25 pantoprazole 40 mg tablet,delayed release 40 mg PO BID #180 tabs 10/14/25 sucralfate 1 gram tablet 1 g PO 0700,1100,1600 #360 tabs 10/14/25 Hospital Course Operations None Procedures None Summary of Care Provided Hospital Course: Patient presents with sepsis secondary to C. difficile. Patient also had non- anion anion gap metabolic acidosis along with MAURO. Patient received ryland amounts of fluid and then developed anasarca. Patient was on vancomycin for C. difficile. Patient was started on diuresis to help with facilitating fluid mobilization from his extremities. Patient still with edematous but his weight has gone down considerably with the diuresis. [facility]. Regards to C. difficile he has completed the course of vancomycin which is of course of 10 days. Patient has been listless but his mental status is marginal but he has not been more interactive lately. Patient is otherwise medically stable to to be discharged. Weight / BMI Weight Weight: 85.3 kg Body Mass Index (BMI) 27.7 ABG / Lab / Microbiology Data 10/14/25 05:05 10/14/25 05:05 Laboratory: Laboratory Results - last 24 hr 10/14/25 05:05: WBC 12.1 H, RBC 3.58 L, Hgb 9.0 L, Hct 31.7 L, MCV 88.5, MCH 25.1 L, MCHC 28.4 L, RDW Std Deviation 70.4 H, RDW Coeff of Genesis 22.9 H, Plt Count 177, MPV 9.2, Immature Gran % (Auto) 3.500 H, Neut % (Auto) 64.4, Lymph % (Auto) 24.0, [place] % (Auto) 7.7, Eos % (Auto) 0.2, Baso % (Auto) 0.2, Absolute Neuts (auto) 7.8 H, Absolute Lymphs (auto) 2.91, Nucleated RBC % 0.7, Sodium 143, Potassium 3.2 L, Chloride 113 H, Carbon Dioxide 18.2 L, Anion Gap 12, BUN 31 H, Creatinine 1.74 H, Estim Creat Clear Calc 32.38 L, Est GFR (MDRD) Non-Af 37 L, BUN/Creatinine Ratio 17.6, Glucose 94, Calcium 7.6 Microbiology: Microbiology 10/03/25 14:30 Blood Culture (Wb) - Right Forearm Blood Culture - Final No growth in 5 days. 10/03/25 14:30 Blood Culture (Wb) - Right Forearm Blood Culture - Final No growth in 5 days. 10/06/25 02:30 Stool Stool Occult Blood (RYLAN) - Final Occult Blood Positive 10/03/25 15:00 Urine, Random Urine Culture - Final Culture exhibits no growth. D/C Instructions DC O2, CPAP, BIPAP Needs Home O2 Discharge instructions: No Meaningful Use Info Meaningful Use Meaningful Use Diagnoses (Choose all that apply): None applicable Discharge Plan Admission Admit Date/Time: 10/03/25 17:00 Primary Reason for Your Visit: Cdiff colitis. Attending Provider: Channing Mcqueen Primary Care Provider: Husam Khan Chi Consulting Providers: Tito Lunsford; Allyn Tran; Alisha Gilbert; Hunter Archibald Discharge Orders/Prescriptions Prescriptions: New sucralfate 1 gram Tablet 1 g PO 0700,1100,1600 Qty: 360 0RF midodrine 5 mg Tablet 10 mg PO TIDCM Qty: 90 0RF pantoprazole 40 mg Tablet,Delayed Release (Dr/Ec) 40 mg PO BID Qty: 180 0RF Ensure Plus High Protein 0.08 gram-1.5 kcal/mL Liquid 120 ml PO 4X/DAY Qty: 0 0RF furosemide [Lasix] 40 mg tablet 40 mg PO BID Qty: 60 0RF Rx Instructions: 1 tablet twice daily for 1 week, then 1 tablet daily. Continued famotidine [Pepcid] 40 mg tablet 40 mg PO DAILY citalopram 10 mg tablet 10 mg PO DAILY Patient Comments: Take 1 Tablet orally once per Day for 30 Days donepezil 10 mg tablet 10 mg PO QHS Patient Comments: TAKE 1 TABLET BY MOUTH DAILY WITH SUPPER quetiapine 25 mg tablet 25 mg PO QHS ascorbate calcium (vitamin C) 500 mg tablet 500 mg PO DAILY PreserVision AREDS-2 250-90-40-1 mg capsule 1 tab PO BID tamsulosin 0.4 MG capsule 0.4 mg PO QHS aspirin [Adult Aspirin Regimen] 81 mg tablet,delayed release (DR/EC) 81 mg PO DAILY atorvastatin [Lipitor] 20 mg tablet 20 mg PO QHS ferrous sulfate [Feosol] 325 mg (65 mg iron) tablet 325 mg PO DAILY fluticasone propionate 50 mcg/actuation spray,suspension 1 spray INTRANASAL BID ipratropium-albuterol 0.5 mg-3 mg(2.5 mg base)/3 mL Solution For Nebulization 3 ml inhalation Q6H.RT PRN (Reason: sob) Qty: 0 0RF carboxymethylcellulose sodium [Refresh Celluvisc] 1 % Dropperette,Gel 1 drp EACH EYE DAILY Qty: 0 0RF Lactobacillus acidophilus 10 billion cell capsule 10,000 mmu cells PO BID sennosides-docusate sodium [Stimulant Laxative Plus] 8.6-50 mg Tablet 2 tab PO BID PRN (Reason: constipation) guaifenesin [Mucus Relief ER] 1,200 mg Tablet Extended Release 12hr 600 mg PO BID albuterol sulfate 90 mcg/actuation HFA aerosol inhaler 2 puff INHALATION Q6H PRN (Reason: shortness of breath or wheezing) carvedilol 3.125 mg tablet 3.125 mg PO BID Qty: 180 3RF Rx Instructions: must administer with a meal/food clopidogrel 75 mg tablet 75 mg PO DAILY Qty: 90 4RF Discontinued losartan 50 mg tablet 25 mg PO DAILY Qty: 90 4RF vancomycin 125 mg capsule 125 mg PO Q6H OXYGEN - Supplemental ([facility] INFORMATIONAL USE ONLY) Patient Comments: pt states he uses oxgyen at home but doesnt know how much or who brings it Referrals / Follow Up: uHsam Khan Chi, MD [Primary Care Provider, Geriatrics] - Within 2 Weeks Disposition Disposition (needs filled in before D/C Order can be placed): [facility] Facility Charges/Coding Visit Charges Inpatient E&M: 99760 Disch Hosp
[2025-10-14 14:49] VITALS: BP 129/81; PULSE 103; RESP 14; TEMP 36.4; O2SAT 98
--- NOTE | 2025-10-14 15:19 | NURSING ---
called report to [facility] gave report to Fabi. No other questions.
== END 2025-10-14 17:09 | disposition skilled nursing facility (03) | DRG 871 ==
LOC: ED 17:24 → PCU 17:30
PROVIDERS: Family Medicine; Internal Medicine; Internal Medicine Gastroenterology; Internal Medicine Nephrology; Student in an Organized Health Care Education/Training Program; Admitting Provider Internal Medicine; Emergency Provider Emergency Medicine; PCP Family Medicine Geriatric Medicine
PROC: 0DJ08ZZ Inspection of Upper Intestinal Tract, Via Natural or Artificial Opening Endoscopic (ICD-10-PCS; CPT 43235; principal; 2025-10-06 17:55)
DX: A41.9 Sepsis, unspecified organism (principal); G93.41 Metabolic encephalopathy; A04.72 Enterocolitis due to Clostridium difficile, not specified as recurrent; D62 Acute posthemorrhagic anemia; I48.20 Chronic atrial fibrillation, unspecified; N17.9 Acute kidney failure, unspecified; K26.9 Duodenal ulcer, unspecified as acute or chronic, without hemorrhage or perforation; E86.0 Dehydration; F03.90 Unspecified dementia, unspecified severity, without behavioral disturbance, psychotic disturbance, mood disturbance, and anxiety; I10 Essential (primary) hypertension; Z95.2 Presence of prosthetic heart valve; I25.10 Atherosclerotic heart disease of native coronary artery without angina pectoris; E78.5 Hyperlipidemia, unspecified; I95.89 Other hypotension; R19.8 Other specified symptoms and signs involving the digestive system and abdomen; R19.5 Other fecal abnormalities; D47.2 Monoclonal gammopathy; K25.9 Gastric ulcer, unspecified as acute or chronic, without hemorrhage or perforation; Z95.1 Presence of aortocoronary bypass graft; Z79.02 Long term (current) use of antithrombotics/antiplatelets; Z79.82 Long term (current) use of aspirin; Z79.899 Other long term (current) drug therapy; Z87.891 Personal history of nicotine dependence
CPT/HCPCS: 36415; 36600; 51702; 71045; 74177; 80048; 80053; 81001; 82274; 82436; 82570; 82728; 82803; 82962; 83540; 83550; 83605; 83735; 84133; 84300; 85014; 85018; 85025; 85027; 85610; 85730; 86850; 86900; 86901; 87040; 87086; 92526; 92610; 93005; 94640; 94762; 97110; 97162; 97167; 97530; 97803; 99285; C1889; P9016; P9047; Q9967; A4216; J1938; J2405; J2916